=== PATIENT | male | born 1950 | race Caucasian/White ===

== ENCOUNTER → 2016-06-13 | Outpatient (CLI) | payer OTHER, MEDICARE ==
[~2016-06-13] MED LIST: ASPI-586 PO; CETI10TA17 PO; FENO134C PO; FISH1CAP15 PO; FLUO40CA12 PO; GLUC-116 PO; HYDR-3816 PO; METF-380 PO; MULT1CAP27 PO; OLME1TAB24 PO; SIMV40TA4 PO; [UNRECOGNIZED DRUG - OTHER]
--- OUTSIDE RECORDS SUMMARY | 2016-06-13 15:56 | XMS REPORT | Continuity of Care Document ---
Author Author [facility] [address] Organization [facility] [address] Address Unknown Phone Unavailable Care Team Providers Care Tools Programmer Name Role Phone CHIDI ZENDEJAS DO PCP Insurance Providers Payer Name Policy Number Subscriber Name Relationship [facility] [id number] Patt Streeter 01 s Medicare [id number] Irladna Streeter 18 Self / Same As Patient Advance Directives Directive Response Recorded Date/Time Advance Directives Yes 05/25/16 8:42am Resuscitation Status Full Code 05/25/16 8:42am Chief Complaint and Reason for Visit Chief Complaint Cough/Cold/Flu Symptoms Reason for Visit Upper respiratory infection Problems Active Problems Medical Problem Onset Date Status Upper respiratory infection Unknown Acute Medications Current Home Medications Medication Dose Units Route Directions Days/Qty Instructions Start Date Metformin Hcl (Glucophage) 1,000 Mg 1,000 Mg Oral Twice A Day With Meals 04/21/12 Olmesartan/Hydrochlorothiazide 1 Each 1 Each Oral Daily 03/28/15 Fluoxetine Hcl 40 Mg 40 Mg Oral Daily 03/28/15 Simvastatin 40 Mg 40 Mg Oral Daily 03/28/15 Fenofibrate,Micronized 134 Mg 134 Mg Oral Daily 03/28/15 Multivitamin 1 Each 1 Each Oral Daily 03/28/15 Gluc/Tyrone-Msm#2/C/D3/Ricardo/Born 1 Each 2 Each Oral Daily 03/28/15 Cetirizine Hcl 10 Mg 10 Mg Oral Daily 03/28/15 Aspirin 81 Mg 81 Mg Oral Daily 03/28/15 Fish Oil/Dha/Epa 1 Each 2,400 Mg Oral Daily take 2 (1,200mg) tabs 08/07 Hydrocodone/Acetaminophen 1 Each 1 Each Oral Every 4HRS for Pain 20 Past Home Medications Medication Directions Ordered Status [Bencare] , 04/21/12 Discontinued Social History Social History Problem Response Recorded Date/Time Alcohol Use Denies Use 03/29/2015 11:30am Recreational Drug Use No 03/29/2015 11:30am Recent Foreign Travel No 05/25/2016 8:42am Recent Infectious Disease Exposure No 05/25/2016 8:42am Hospitalization with Isolation Denies 05/25/2016 8:42am Smoking Status Former Smoker 05/25/2016 8:42am Type Used Cigarettes 05/25/2016 8:42am Recent Hopitalizations No 05/25/2016 8:42am Hospitalization with Isolation Denies 05/25/2016 8:42am Query Response Start Date Stop Date Smoking Status Former Smoker 05/26/1999 Hospital Discharge Instructions No hospital discharge instructions. Plan of Care Discharge Date 05/25/16 10:55am Disposition 01 HOME, SELF-CARE Condition at Discharge Stable/Unchanged Instructions/Education Provided Viral Upper Respiratory Infection, Adult (DC) Prescriptions See Medication Section Referrals CHIDI ZENDEJAS DO - Primary Care Physician Additional Instructions/Education All discharge instructions reviewed with patient and/or family. Voiced understanding. Plenty of liquids. Tylenol 650 or ibuprofen 600 every 6 hours for fever or aches and pains Acquire Claritin which is available [id number] and take for nasal congestion. Take [place] or other throat lozenges for sore throat and/or coughing Functional Status No functional status results. Allergies, Adverse Reactions, Alerts Allergen Type Severity Reaction Status Last Updated Codeine Allergy Mild RASH, PATIENT HAS HYDROCODONE AND OXYCODONE W/O ISSUE Active 03/29/15 Immunizations No immunization records. Vital Signs Acute Vital Signs Vital Response Date/Time Temperature (Fahrenheit) 99 degrees F (97.6 - 99.5) 05/25/2016 8:42am Temperature (Calculated Celsius) 37.2252 degrees C (36.4 - 37.5) 05/25/2016 8 :42am Temperature Source Temporal 05/25/2016 8:42am Pulse Rate (adult) 68 bpm (60 - 90) 05/25/2016 8:42am Respiratory Rate 25 bpm (12 - 24) 05/25/2016 8:42am O2 Sat by Pulse Oximetry 96 % (88 - 100) 05/25/2016 8:42am Blood Pressure 173/113 mm Hg 05/25/2016 8:42am Blood Pressure Mean 133 mm Hg 05/25/2016 8:42am Height (Feet) 6 feet 05/25/2016 8:42am Height (Inches) 2.00 inches 05/25/2016 8:42am Height (Calculated Centimeters) 187.264247 cm 05/25/2016 8:42am Weight (Pounds) 315 pounds 05/25/2016 8:42am Weight (Calculated Grams) 494202.598 gm 05/25/2016 8:42am Weight (Calculated Kilograms) 142.473692 kilograms 05/25/2016 8:42am Calculated BMI 36.40 05/25/2016 8:42am Capillary Refill Capillary Refill Less Than 3 Seconds 05/25/2016 8:42am Results Laboratory Results Test Name Result Units Flags Reference Collection Date/Time Result Date/ Time Comments White Blood Count 7.9 10^3/uL 4.3-11.0 05/25/2016 9:13am 05/25/2016 9: 24am Red Blood Count 4.60 10^6/uL 4.35-5.85 05/25/2016 9:13am 05/25/2016 9: 24am Hemoglobin 13.2 G/DL L 13.3-17.7 05/25/2016 9:13am 05/25/2016 9:24am Hematocrit 39 % L 40-54 05/25/2016 9:13am 05/25/2016 9:24am Mean Corpuscular Volume 85 FL 80-99 05/25/2016 9:13am 05/25/2016 9: 24am Mean Corpuscular Hemoglobin 29 PG 25-34 05/25/2016 9:13am 05/25/2016 9: 24am Mean Corpuscular Hemoglobin Concent 34 G/DL 32-36 05/25/2016 9:13am 9:24am Red Cell Distribution Width 15.6 % H 10.0-14.5 05/25/2016 9:13am 2015 9:24am Platelet Count 306 10^3/uL 130-400 05/25/2016 9:1305/25/2016 9:24am Mean Platelet Volume 9.8 FL 7.4-10.4 05/25/2016 9:1305/25/2016 9: 24am Neutrophils (%) (Auto) 67 % 42-75 05/25/2016 9:1305/25/2016 9:24am Lymphocytes (%) (Auto) 19 % 12-44 05/25/2016 9:1305/25/2016 9:24am Monocytes (%) (Auto) 10 % 0-12 05/25/2016 9:1305/25/2016 9:24am Eosinophils (%) (Auto) 2 % 0-10 05/25/2016 9:1305/25/2016 9:24am Basophils (%) (Auto) 1 % 0-10 05/25/2016 9:1305/25/2016 9:24am Neutrophils # (Auto) 5.4 X 10^3 1.8-7.8 05/25/2016 9:13am 05/25/2016 9: 24am Lymphocytes # (Auto) 1.5 X 10^3 1.0-4.0 05/25/2016 9:1305/25/2016 9: 24am Monocytes # (Auto) 0.8 X 10^3 0.0-1.0 05/25/2016 9:1305/25/2016 9: 24am Eosinophils # (Auto) 0.2 10^3/uL 0.0-0.3 05/25/2016 9:13am 05/25/2016 9 :24am Basophils # (Auto) 0.1 10^3/uL 0.0-0.1 05/25/2016 9:13am 05/25/2016 9: 24am Group A Streptococcus Screen NEGATIVE NEGATIVE 05/25/2016 9:04am 9:19am Procedures No known history of procedures. Encounters Encounter Location Arrival/Admit Date Discharge/Depart Date Attending Provider Departed Emergency Room [facility] [address] 05/25/16 8:26am 05/25 10:55am MICHELLE FONTENOT MD Recent Diagnosis
--- NOTE | 2016-06-13 16:17 | Diagnostic Imaging Report ---
CLINICAL INDICATION: Patient with difficulty breathing. Patient has cough, wheezing, and congestion. EXAM: Chest x-ray, PA and lateral views. COMPARISONS: Chest x-ray dated 05/25/2016. FINDINGS: Lungs/pleura: There is slight improved aeration of both lungs with no interval lung infiltrate seen. Suspected minimal bibasilar atelectasis. There is no pneumothorax. There is no pleural effusion. Mediastinum: Unremarkable. Pulmonary vasculature: Unremarkable. Heart: Stable cardiomegaly. Bones/extrathoracic soft tissue: There are degenerative osteophytes scattered throughout the thoracic spine. Degenerative disease of the right glenohumeral joint is seen. IMPRESSION: 1: There is slight improved aeration of both lungs with suspected minimal bibasilar atelectasis. There is no interval lung infiltrate seen. 2: Stable cardiomegaly with no significant pulmonary vascular congestion. Dictated by: Dictated on workstation # [id number]
== END ==
LOC: RAD 15:52
PROVIDERS: ATTEND Nurse Practitioner
DX: R05 Cough (principal); R06.2 Wheezing
CPT/HCPCS: 71020

== ENCOUNTER → 2016-09-11 | Outpatient (CLI) | payer OTHER, MEDICARE ==
[~2016-09-11] MED LIST changes: +RT-ALBUTEROL SULF 2.5 MG/3 ML PRE-MIX VIAL IH ONE
== END ==
LOC: RT 12:54
PROVIDERS: ATTEND Internal Medicine Critical Care Medicine
DX: R06.00 Dyspnea, unspecified (principal); I10 Essential (primary) hypertension; E11.9 Type 2 diabetes mellitus without complications
CPT/HCPCS: 94060; 94640; 94726; 94729

== ENCOUNTER 2016-10-10 14:00 | Outpatient (CLI) | payer OTHER, MEDICARE ==
[~2016-10-10 14:00] MED LIST changes: -RT-ALBUTEROL SULF 2.5 MG/3 ML PRE-MIX VIAL IH ONE
== END 2016-10-10 14:39 | disposition home or self-care (01) ==
LOC: SLEEP 14:00
PROVIDERS: ATTEND Internal Medicine Critical Care Medicine
DX: R06.02 Shortness of breath (principal); I10 Essential (primary) hypertension; E11.9 Type 2 diabetes mellitus without complications

== ENCOUNTER 2017-01-09 09:00 | Outpatient (RCR) | payer OTHER, MEDICARE | END 2017-01-12 | disposition home or self-care (01) | LOC: PULM 09:00 | PROVIDERS: ATTEND Internal Medicine Critical Care Medicine | DX: R06.00 Dyspnea, unspecified (principal); I10 Essential (primary) hypertension; E11.9 Type 2 diabetes mellitus without complications | CPT/HCPCS: 99211 ==

== ENCOUNTER 2017-02-20 09:00 | Outpatient (RCR) | payer OTHER, MEDICARE | END 2017-02-22 | disposition home or self-care (01) | LOC: PULM 09:00 | PROVIDERS: ATTEND Internal Medicine Critical Care Medicine | DX: R06.00 Dyspnea, unspecified (principal); I10 Essential (primary) hypertension; E11.9 Type 2 diabetes mellitus without complications ==

== ENCOUNTER 2017-05-13 09:00 | Outpatient (RCR) | payer OTHER, MEDICARE | END 2017-05-26 | disposition home or self-care (01) | LOC: PULM 09:00 | PROVIDERS: ATTEND Internal Medicine Critical Care Medicine | DX: I10 Essential (primary) hypertension (principal); R06.00 Dyspnea, unspecified; E11.9 Type 2 diabetes mellitus without complications ==

== ENCOUNTER → 2017-06-12 | Outpatient (CLI) | payer OTHER, MEDICARE ==
[2017-06-12 11:06] LABS: BUN/CREATININE RATIO 22; CREATININE SERUM 0.94 MG/DL (0.60-1.30); GFR ESTIMATED > 60
--- NOTE | 2017-06-12 12:24 | Diagnostic Imaging Report ---
PROCEDURE: CT neck soft tissue with contrast. TECHNIQUE: Multiple contiguous axial images were obtained through the neck after the administration of contrast. INDICATION: Right ear swelling. COMPARISON: There are no previous studies available for comparison. FINDINGS: The right ear was not included in its entirety on this exam. Where visualized, the right ear seems similar to the left ear. There is no obvious mass or soft tissue edema identified. There is no mass or adenopathy noted. The parotid and submandibular glands are within normal limits. The thyroid gland is not enlarged, and the gland appears fairly homogeneous. There is atherosclerotic disease involving both carotid bifurcations, and there may be a hemodynamically significant stenosis of the proximal internal carotid artery on the right. I would recommend that a carotid Doppler exam be performed for further study. The lung apices are clear. The intracranial contents, where visualized, are unremarkable. There is some type of metallic device within the left globe. Correlation with the patient's ophthalmologic surgery would be recommended. The bone windows show no sign of a fracture or of a destructive lesion. There is fairly severe degenerative disc and bony disease at C5-6 and C6-7. The axial images do suggest that there is spinal stenosis and neural foraminal narrowing bilaterally at both of these levels. If further study is desired, then MRI would be recommended. IMPRESSION: 1. There is no abnormality of the visualized right ear. Clinical followup is recommended. 2. There is no acute abnormality of the neck identified otherwise. 3. Ultrasound would be recommended for further evaluation of the carotid bifurcation on the right. 4. There is degenerative disc and bony disease at C5-6 and C6-7. If further study is desired, then MRI would be recommended. Dictated by: Dictated on workstation # [id number]
== END ==
LOC: RAD 10:33
PROVIDERS: ATTEND Nurse Practitioner Family
DX: M50.322 Other cervical disc degeneration at C5-C6 level (principal); H93.8X1 Other specified disorders of right ear; R22.1 Localized swelling, mass and lump, neck
CPT/HCPCS: 36415; 70491; 82565; 84520

== ENCOUNTER → 2017-06-23 | Outpatient (CLI) | payer OTHER, MEDICARE ==
--- NOTE | 2017-06-23 15:46 | Diagnostic Imaging Report ---
PROCEDURE: US carotid duplex, bilateral TECHNIQUE: Multiple real-time grayscale images were obtained over the carotid arteries in various projections, bilaterally. Additional duplex Doppler and color Doppler images were also obtained. INDICATION: Diabetes. FINDINGS: There are no focally elevated velocities in either internal carotid artery. The ICA/CCA ratios are within normal limits, bilaterally. There is antegrade flow in the vertebral arteries, bilaterally. Grayscale images demonstrate minimal carotid plaque, bilaterally. IMPRESSION: Minimal bilateral carotid plaque however spectral analysis shows no evidence of a hemodynamically significant stenosis in either internal carotid artery. Dictated by: Dictated on workstation # [id number]
== END ==
LOC: RAD 11:31
PROVIDERS: ATTEND Family Medicine
DX: I65.21 Occlusion and stenosis of right carotid artery (principal); E11.9 Type 2 diabetes mellitus without complications
CPT/HCPCS: 93880

== ENCOUNTER 2017-08-04 21:12 | Emergency (ER) | payer OTHER, MEDICARE ==
[~2017-08-04] VITALS: Ht 188 cm; Wt 133.8 kg
[~2017-08-04 21:12] MED LIST changes: +HYDR-34 PO; -HYDR-3816 PO
[2017-08-04] MEDS ORDERED: MONT10TA24 (21:30)
[2017-08-04] MEDS ORDERED: DILT360C36 (21:30)
[2017-08-04] MEDS ORDERED: METO-395 (21:30)
--- NOTE | 2017-08-04 21:56 | ED Abdominal Pain ---
General Chief Complaint: Back Problems Stated Complaint: L SIDE PAIN/SOB Nursing Triage Note: left upper flank pain Sepsis Screen: No Definite Risk Source of Information: Patient Exam Limitations: No Limitations History of Present Illness Date Seen by Provider: Aug 04, 2017 Time Seen by Provider: 21:42 Initial Comments Here with complaint of left flank pain that radiates around the abdomen to the front. States it is quite significant. Denies dysuria. Denies vomiting. Unsure what causes this. Also has back pain. States he's never had anything like this before. States he was able to have bowel movement today. Timing/Duration: 24 Hours Severity/Quality: Moderate, Aching Location: Flank Radiation: LUQ, Back, Epigastric Activities at Onset: None Modifying Factors: Worsens With Movement, Improves With Resting Associated Symptoms: Back Pain, No Chest Pain, No Fever/Chills, No Nausea/ Vomiting, No Shortness of Air, No Weakness Allergies and Home Medications Allergies Coded Allergies: codeine (Verified Allergy, Mild, RASH, PATIENT HAS HYDROCODONE AND OXYCODONE W/O ISSUE, 03/29/15) Home Medications Aspirin 81 Mg Tablet.dr, 81 MG PO DAILY, (Reported) Cetirizine HCl 10 Mg Tablet, 10 MG PO DAILY, (Reported) Fenofibrate,Micronized 134 Mg Capsule, 134 MG PO DAILY, (Reported) Fish Oil/Dha/Epa 1 Each Capsule, 2,400 MG PO DAILY, (Reported) take 2 (1,200mg) tabs Fluoxetine HCl 40 Mg Capsule, 40 MG PO DAILY, (Reported) Gluc/Tyrone-MSM#2/C/D3/Ricardo/Born 1 Each Tablet, 2 EACH PO DAILY, (Reported) Metformin Hcl 1,000 Mg Tablet, 1,000 MG PO BID WITH MEALS, (Reported) Multivitamin 1 Each Capsule, 1 EACH PO DAILY, (Reported) Olmesartan/Hydrochlorothiazide 1 Each Tablet, 1 EACH PO DAILY, (Reported) Simvastatin 40 Mg Tablet, 40 MG PO DAILY, (Reported) Patient Home Medication List Home Medication List Reviewed: Yes Review of Systems Constitutional: see HPI, No chills, No fever EENTM: No Symptoms Reported Respiratory: No Symptoms Reported Cardiovascular: Denies Chest Pain, Denies Palpitations Gastrointestinal: Abdominal Pain, Denies Constipated, Denies Diarrhea, Denies Vomiting Genitourinary: No Symptoms Reported Musculoskeletal: see HPI, back pain, muscle pain Skin: no symptoms reported All Other Systems Reviewed Negative Unless Noted: Yes Past Pzfuzwv-Bhblam-Ficjiv Hx Patient Social History Alcohol Use: Denies Use Recreational Drug Use: No Smoking Status: Former Smoker Type Used: Cigarettes Recent Foreign Travel: No Contact w/Someone Who Travel: No Recent Infectious Disease Expo: No Recent Hopitalizations: No Immunizations Up To Date Tetanus Booster (TDap): Less than 5yrs Seasonal Allergies Seasonal Allergies: Yes Surgeries History of Surgeries: Yes (LEFT ELBOW FX, CATARACTS AND TORN RETINA, RIGHT SHOULDER) Respiratory History of Respiratory Disorde: No Cardiovascular History of Cardiac Disorders: Yes Cardiac Disorders: High Cholesterol, Hypertension Neurological History of Neurological Disord: Yes (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) Neurological Disorders: Traumatic Brain Injury Genitourinary History of Genitourinary Disor: No Gastrointestinal History of Gastrointestinal Di: Yes Gastrointestinal Disorders: Gastroesophageal Reflux, Chronic Constipation Musculoskeletal History of Musculoskeletal Dis: Yes Musculoskeletal Disorders: Arthritis Endocrine History of Endocrine Disorders: Yes Endocrine Disorders: Diabetes, Non-Insulin dep HEENT HEENT Disorders: Cataract Hearing Impairment: Bilateral Hearing Aide Cancer History of Cancer: No Psychosocial History of Psychiatric Problem: Yes Behavioral Health Disorders: Anxiety Integumentary History of Skin or Integumenta: No Blood Transfusions History of Blood Disorders: No Reviewed Nursing Assessment Reviewed/Agree w Nursing PMH: Yes Family Medical History Significant Family History: No Pertinent Family Hx Physical Exam Vital Signs VS - Last 72 Hours, by Label 08/04/17 21:30 Temp 96.5 Pulse 75 Resp 16 B/P (MAP) 188/107 (134) Pulse Ox 93 O2 Delivery Room Air Capillary Refill : Less Than 3 Seconds General Appearance: WD/WN, mild distress (pain related), obese HEENT: PERRL/EOMI, pharynx normal Neck: full range of motion, supple Respiratory: lungs clear, normal breath sounds Cardiovascular: regular rate, rhythm, no murmur Gastrointestinal: soft, abnormal bowel sounds (hypoactive), No guarding, No rebound, tenderness (upper abdomen and left side), hernia (periumbilical) Extremities: non-tender, normal inspection Back: normal inspection, other (tenderness to the left lateral aspect of the lumbar spine. Tenderness extends in the SI joint around the back to the upper abdomen.) Neurologic/Psychiatric: alert, oriented x 3 Skin: normal color, warm/dry Progress/Results/Core Measures Results/Orders Lab Results Laboratory Tests Test 08/04/17 21:50 Range/Units White Blood Count 14.2 H 4.3-11.0 10^3/uL Red Blood Count 4.84 4.35-5.85 10^6/uL Hemoglobin 14.1 13.3-17.7 G/DL Hematocrit 41 40-54 % Mean Corpuscular Volume 85 80-99 FL Mean Corpuscular Hemoglobin 29 25-34 PG Mean Corpuscular Hemoglobin Concent 34 32-36 G/DL Red Cell Distribution Width 15.8 H 10.0-14.5 % Platelet Count 296 130-400 10^3/uL Mean Platelet Volume 9.5 7.4-10.4 FL Neutrophils (%) (Auto) 84 H 42-75 % Lymphocytes (%) (Auto) 10 L 12-44 % Monocytes (%) (Auto) 5 0-12 % Eosinophils (%) (Auto) 1 0-10 % Basophils (%) (Auto) 0 0-10 % Neutrophils # (Auto) 11.9 H 1.8-7.8 X 10^3 Lymphocytes # (Auto) 1.4 1.0-4.0 X 10^3 Monocytes # (Auto) 0.7 0.0-1.0 X 10^3 Eosinophils # (Auto) 0.1 0.0-0.3 10^3/uL Basophils # (Auto) 0.0 0.0-0.1 10^3/uL Neutrophils % (Manual) 85 % Lymphocytes % (Manual) 13 % Monocytes % (Manual) 2 % Eosinophils % (Manual) 0 % Basophils % (Manual) 0 % Band Neutrophils 0 % Blood Morphology Comment NORMAL Urine Color YELLOW Urine Clarity CLEAR Urine pH 7 5-9 Urine Specific Adams 1.010 L 1.016-1.022 Urine Protein NEGATIVE NEGATIVE Urine Glucose (UA) NEGATIVE NEGATIVE Urine Ketones NEGATIVE NEGATIVE Urine Nitrite NEGATIVE NEGATIVE Urine Bilirubin NEGATIVE NEGATIVE Urine Urobilinogen NORMAL NORMAL MG/DL Urine Leukocyte Esterase NEGATIVE NEGATIVE Urine RBC (Auto) NEGATIVE NEGATIVE Urine RBC NONE /HPF Urine WBC 0-2 /HPF Urine Crystals NONE /LPF Urine Bacteria NEGATIVE /HPF Urine Casts NONE /LPF Urine Mucus SMALL H /LPF Urine Culture Indicated NO Sodium Level 142 135-145 MMOL/L Potassium Level 3.3 L 3.6-5.0 MMOL/L Chloride Level 102 98-107 MMOL/L Carbon Dioxide Level 26 21-32 MMOL/L Anion Gap 14 5-14 MMOL/L Blood Urea Nitrogen 23 H 7-18 MG/DL Creatinine 0.92 0.60-1.30 MG/DL Estimat Glomerular Filtration Rate > 60 BUN/Creatinine Ratio 25 Glucose Level 143 H 70-105 MG/DL Calcium Level 8.9 8.5-10.1 MG/DL Total Bilirubin 0.6 0.1-1.0 MG/DL Aspartate Amino Transf (AST/SGOT) 27 5-34 U/L Alanine Aminotransferase (ALT/SGPT) 42 0-55 U/L Alkaline Phosphatase 35 L 40-136 U/L Total Protein 7.0 6.4-8.2 GM/DL Albumin 4.4 3.2-4.5 GM/DL Amylase Level 27 25-125 U/L Lipase 17 8-78 U/L My Orders Orders - IVY NUNN MD Amylase (08/04/17 21:46) Cbc With Automated Diff (08/04/17 21:46) Comprehensive Metabolic Panel (08/04/17 21:46) Lipase (08/04/17 21:46) Ua Culture If Indicated (08/04/17 21:46) Saline Lock/Iv-Start (08/04/17 21:46) Monitor-Rhythm Ecg Trace Only (08/04/17 21:46) Manual Differential (08/04/17 21:50) Ct Abdomen/Pelvis W (08/04/17 22:28) Iohexol Injection (Omnipaque 350 Mg/Ml 1 (08/04/17 22:30) Ns (Ivpb) (Sodium Chloride 0.9%) (08/04/17 22:30) Saline Lock/Iv-Start (08/04/17 22:41) Ns Iv 1000 Ml (Sodium Chloride 0.9%) (08/04/17 22:41) Medications Given in ED Current Medications Medications Dose Ordered Sig/Evgeny Route Start Time Stop Time Status Last Admin Dose Admin Iohexol 100 ml ONCE ONCE IV 08/04/17 22:30 08/04/17 22:55 DC 08/04/17 22:40 100 ML Sodium Chloride 250 ml ONCE ONCE IV 08/04/17 22:30 08/04/17 22:55 DC 08/04/17 22:40 80 ML Sodium Chloride 1,000 ml @ 0 mls/hr Q0M ONCE IV 08/04/17 22:41 08/04/17 22:42 DC 08/04/17 23:05 0 MLS/HR Vital Signs/I&O Vital Sign - Last 12Hours 08/04/17 21:30 Temp 96.5 Pulse 75 Resp 16 B/P (MAP) 188/107 (134) Pulse Ox 93 O2 Delivery Room Air Intake and Output 08/05/17 00:00 Intake Total 1000 ml Balance 1000 ml Blood Pressure Mean: 134 Progress Note : Progress Note Seen and evaluated. IV, labs and UA ordered. Labs evaluated. CT abdomen and pelvis with IV contrast ordered to evaluate the abdomen and further given his pain and presentation symptoms. Monitor patient. Normal saline [address] scan. Diagnostic Imaging Diagonstic Imaging: CT Plain Films/CT/US/NM/MRI: abdomen, pelvis Comments Increased bulky lymphadenopathy, most pronounced in the pelvis. Question whether there is known history of lymphoma or other malignancy. Fluid distended stomach. No clear outlet mass. No small bowel obstruction. Chronic diverticula without diverticulitis. Hepatic steatosis and other incidental findings. Lymph nodes: There is bulky pelvic lymphadenopathy, most pronounced along the external iliac chains. This has increased in the interval. Largest right iliac note is not 3.6 cm in the short axis compared to 2.8 cm previously. On the left, the largest lymph node is increased from 2.7 cm to 3.8 cm and short axis. [place]. There is less pronounced retroperitoneal/para-aortic adenopathy. Several mildly enlarged mesenteric lymph nodes as well. Reviewed: Reviewed [place] Study, Reviewed by Me Departure Impression Impression: Primary Impression: Intra-abdominal lymphadenopathy Additional Impressions: Pelvic lymphadenopathy Low back pain Qualified Codes: M54.5 - Low back pain Disposition: 01 HOME, SELF-CARE Condition: Stable Departure-Patient Inst. Decision time for Depature: 00:06 Referrals: CHIDI ZENDEJAS DO (PCP/Family) Primary Care Physician Patient Instructions: LYMPH NODE SWELLING, Low Back Pain (DC) Add. Discharge Instructions: All discharge instructions reviewed with patient and/or family. Voiced understanding. It is very important that he follow-up with Dr. Zendejas in the next one to 2 days for recheck and further evaluation regarding the enlarged lymph nodes noted in the abdomen and pelvis area. This needs further evaluation. Return for worse pain, fever, vomiting, weakness, breathing problems or other concerns as needed. Continue home medications and eat a normal diet. Copy Copies To 1: CHIDI ZENDEJAS TIMOTHY D MD Aug 04, 2017 21:56
[2017-08-04 22:04] LABS: BASOPHILS % (AUTO) 0 % (0-10); EOSINOPHILS # (AUTO) 0.1 10^3/uL (0.0-0.3); EOSINOPHILS % (AUTO) 1 % (0-10); HEMATOCRIT 41 % (40-54); HEMOGLOBIN 14.1 G/DL (13.3-17.7); LYMPHOCYTES # (AUTO) 1.4 X 10^3 (1.0-4.0); LYMPHOCYTES % (AUTO) 10 % (12-44); MEAN CORPUSCULAR HEMOGLOBIN 29 PG (25-34); MEAN CORPUSCULAR HGB CONC 34 G/DL (32-36); MEAN CORPUSCULAR VOLUME 85 FL (80-99); MEAN PLATELET VOLUME 9.5 FL (7.4-10.4); MONOCYTES # (AUTO) 0.7 X 10^3 (0.0-1.0); MONOCYTES % (AUTO) 5 % (0-12); NEUTROPHILS # (AUTO) 11.9 X 10^3 (1.8-7.8); NEUTROPHILS % (AUTO) 84 % (42-75); PLATELET COUNT 296 10^3/uL (130-400); RED BLOOD COUNT 4.84 10^6/uL (4.35-5.85); RED CELL DISTRIBUTION WIDTH 15.8 % (10.0-14.5); WHITE BLOOD COUNT 14.2 10^3/uL (4.3-11.0)
[2017-08-04 22:05] LABS: BILIRUBIN,URINE NEGATIVE (NEGATIVE); CLARITY,URINE CLEAR; COLOR,URINE YELLOW; GLUCOSE, URINE (UA) NEGATIVE (NEGATIVE); KETONES,URINE NEGATIVE (NEGATIVE); LEUKOCYTE ESTERASE ,URINE NEGATIVE (NEGATIVE); NITRITE,URINE NEGATIVE (NEGATIVE); PH,URINE 7 (5-9); PROTEIN,URINE NEGATIVE (NEGATIVE); UROBILINOGEN,URINE NORMAL (NORMAL)
[2017-08-04 22:17] LABS: BACTERIA,URINE NEGATIVE /HPF; WBC,URINE 0-2 /HPF
[2017-08-04 22:26] LABS: ALANINE AMINOTRANSFERASE 42 U/L (0-55); ALBUMIN 4.4 GM/DL (3.2-4.5); ALKALINE PHOSPHATASE 35 U/L (40-136); AMYLASE 27 U/L (25-125); BILIRUBIN,TOTAL 0.6 MG/DL (0.1-1.0); BUN/CREATININE RATIO 25; CALCIUM 8.9 MG/DL (8.5-10.1); CARBON DIOXIDE 26 MMOL/L (21-32); CHLORIDE 102 MMOL/L (98-107); CREATININE SERUM 0.92 MG/DL (0.60-1.30); GFR ESTIMATED > 60; GLUCOSE 143 MG/DL (70-105); LIPASE 17 U/L (8-78); POTASSIUM 3.3 MMOL/L (3.6-5.0); SODIUM 142 MMOL/L (135-145)
[2017-08-04 22:27] LABS: BAND NEUTROPHILS 0 %; BASOPHILS % (MANUAL) 0 %; EOSINOPHILS % (MANUAL) 0 %; LYMPHOCYTES % (MANUAL) 13 %; MONOCYTES % (MANUAL) 2 %; NEUTROPHILS % (MANUAL) 85 %; RBC MORPH NORMAL
[2017-08-04] MEDS ORDERED: IOHEXOL 350 MG/ML 100 ML (OMNIPAQUE 350) VIAL IV ONE (22:30)
[2017-08-04] MEDS ORDERED: NS 250 ML (IVPB) BAG IV ONE (22:30)
[2017-08-04] MEDS ORDERED: NS IV 1000 ML 1,000 ML IV ONE (22:41)
[2017-08-05 00:11] VITALS: BP 179/100
--- NOTE | 2017-08-05 07:09 | Diagnostic Imaging Report ---
PROCEDURE: CT abdomen and pelvis with contrast. TECHNIQUE: Multiple contiguous axial images were obtained through the abdomen and pelvis after administration of intravenous contrast. INDICATION: Left flank pain. COMPARISON: 04/22/2016 FINDINGS: Lower chest: The lung bases are clear. No pericardial or pleural effusion. Peritoneum: No free intraperitoneal air or fluid. Liver and biliary system: Marked diffuse hypoattenuation liver is indicative of hepatic steatosis. No focal hepatic lesion. The gallbladder is normal. No biliary duct dilation. Spleen and Pancreas: Spleen is normal. The pancreas enhances normally without mass lesion or peripancreatic inflammatory changes. Adrenals: Normal. tract: The kidneys enhance normally without obstruction. Cystic lesion with a few internal septations in the mid left kidney is stable in size measuring 2.9 x 2.8 cm. No additional renal lesions. Urinary bladder is distended without wall thickening. Prostate is not enlarged. GI tract: Stomach is distended with fluid and there is no wall thickening. Small bowel loops are fluid filled but nondilated. No pericolonic inflammatory changes. Normal appendix. Vasculature and Lymph nodes: Normal caliber aorta. Enlarged pelvic lymph nodes are present. These include lymphadenopathy along the common and external iliac chains. Largest lymph nodes along the pelvic sidewall and the left measuring 4.3 x 3.2 in the right external iliac chain on the right measuring 4.6 x 3.3 cm. There are a few borderline enlarged inguinal lymph nodes but these appear to maintain fatty liset. Musculoskeletal: No concerning osseous lesion. IMPRESSION: 1. Increase in lymphadenopathy within the pelvis is concerning for lymphoproliferative disorder. Consider image guided biopsy for further characterization if patient does not already have a diagnosis. 2. No bowel destruction. Fluid-filled stomach and small bowel loops can be seen with gastroenteritis. 3. Marked hepatic steatosis. 4. Findings are in agreement with the preliminary report. Dictated by: Dictated on workstation # [id number]
== END 2017-08-05 00:10 | disposition home or self-care (01) ==
LOC: EDUNIT# 21:12 → ER 21:13
DX: R59.0 Localized enlarged lymph nodes (principal); M54.5 Low back pain; E78.00 Pure hypercholesterolemia, unspecified; I10 Essential (primary) hypertension; K21.9 Gastro-esophageal reflux disease without esophagitis; E11.9 Type 2 diabetes mellitus without complications; F41.9 Anxiety disorder, unspecified; Z87.820 Personal history of traumatic brain injury; Z87.19 Personal history of other diseases of the digestive system; Z88.5 Allergy status to narcotic agent; Z79.84 Long term (current) use of oral hypoglycemic drugs; Z79.82 Long term (current) use of aspirin; Z87.891 Personal history of nicotine dependence
CPT/HCPCS: 36415; 74177; 80053; 81000; 82150; 83690; 85007; 85025; 85027; 93041; 96360

== ENCOUNTER → 2017-08-11 | Outpatient (CLI) | payer OTHER, MEDICARE ==
[~2017-08-11] MED LIST changes: +ACET-2650 PO; +CART1TAB4 PO; +CATHETER FLUSH 10 ML SYR IV PRN; +CINN500C2 PO; +DILT360C36 PO; +DULO60CA58 PO; +FLUT1BLS IH; +GARL10002 PO; +IBUP-2055 PO; +IOHEXOL 350 MG/ML 100 ML (OMNIPAQUE 350) VIAL IV ONE; +METF1000 PO; +METO-395 PO; +MONT10TA24; +NS 100 ML (IVPB) BAG IV ONE; +OMG1KC PO
--- NOTE | 2017-08-11 13:16 | Diagnostic Imaging Report ---
PROCEDURE: CT chest with contrast only. TECHNIQUE: Multiple contiguous axial images were obtained through the chest after administration of intravenous contrast. INDICATION: Lymphadenopathy. COMPARISON: No prior CT chest study is available for comparison. FINDINGS: Mildly prominent axillary lymph nodes are noted. Left axillary node short axis measurement measures 11 mm. No hilar lymphadenopathy is seen. There is a mildly prominent right paratracheal node with a short axis measurement of 12 mm. No other mediastinal lymphadenopathy is seen. There are coronary arterial calcifications present. The heart is enlarged. No pericardial or pleural fluid is detected. The lungs appear to be clear. No infiltrate, nodule, or mass is seen. There is minimal atelectasis in the right middle lobe. Upper abdomen demonstrates diffuse low density throughout the liver compatible with hepatic steatosis. IMPRESSION: 1. Cardiomegaly. 2. Mildly prominent axillary and right paratracheal lymph nodes, as described and indeterminate. 3. Hepatic steatosis. Dictated by: Dictated on workstation # [id number]
== END ==
LOC: RAD 11:31
PROVIDERS: ATTEND Internal Medicine Hematology & Oncology
DX: R59.1 Generalized enlarged lymph nodes (principal); I51.7 Cardiomegaly; K76.0 Fatty (change of) liver, not elsewhere classified
CPT/HCPCS: 71260

== ENCOUNTER 2017-08-13 11:36 | Outpatient (CLI) | payer OTHER, MEDICARE ==
[~2017-08-13] VITALS: Ht 188 cm; Wt 133.8 kg
[~2017-08-13 11:36] MED LIST changes: -ACET-2650 PO; -CART1TAB4 PO; -CATHETER FLUSH 10 ML SYR IV PRN; -CINN500C2 PO; -DULO60CA58 PO; -FLUT1BLS IH; -GARL10002 PO; -IBUP-2055 PO; -IOHEXOL 350 MG/ML 100 ML (OMNIPAQUE 350) VIAL IV ONE; -METF1000 PO; -NS 100 ML (IVPB) BAG IV ONE; -OMG1KC PO
[2017-08-13] MEDS ORDERED: FLUT1BLS IH (12:47)
[2017-08-13] MEDS ORDERED: OMG1KC PO (12:47)
[2017-08-13] MEDS ORDERED: GARL10002 PO (12:47)
[2017-08-13] MEDS ORDERED: CINN500C2 PO (12:47)
[2017-08-13] MEDS ORDERED: IBUP-2055 PO (12:47)
[2017-08-13] MEDS ORDERED: CART1TAB4 PO (12:47)
[2017-08-13] MEDS ORDERED: DULO60CA58 PO (12:47)
[2017-08-13] MEDS ORDERED: ACET-2650 PO (12:47)
[2017-08-13] MEDS ORDERED: METF1000 PO (12:47)
[2017-08-14] MEDS ORDERED: HYDR-34 PO (12:23)
== END 2017-08-13 13:12 ==
LOC: PREOP 11:36
PROVIDERS: ATTEND Surgery
DX: Z01.818 Encounter for other preprocedural examination (principal); R59.1 Generalized enlarged lymph nodes; D17.1 Benign lipomatous neoplasm of skin and subcutaneous tissue of trunk

== ENCOUNTER 2017-09-18 14:44 | Outpatient (RCR) | payer OTHER, MEDICARE ==
[2017-08-08 16:19] LABS: BASOPHILS % (AUTO) 0 % (0-10); EOSINOPHILS # (AUTO) 0.2 10^3/uL (0.0-0.3); EOSINOPHILS % (AUTO) 2 % (0-10); HEMATOCRIT 39 % (40-54); HEMOGLOBIN 13.3 G/DL (13.3-17.7); LYMPHOCYTES # (AUTO) 1.8 X 10^3 (1.0-4.0); LYMPHOCYTES % (AUTO) 24 % (12-44); MEAN CORPUSCULAR HEMOGLOBIN 29 PG (25-34); MEAN CORPUSCULAR HGB CONC 34 G/DL (32-36); MEAN CORPUSCULAR VOLUME 85 FL (80-99); MEAN PLATELET VOLUME 9.9 FL (7.4-10.4); MONOCYTES % (AUTO) 13 % (0-12); NEUTROPHILS # (AUTO) 4.6 X 10^3 (1.8-7.8); NEUTROPHILS % (AUTO) 61 % (42-75); PLATELET COUNT 324 10^3/uL (130-400); RED BLOOD COUNT 4.57 10^6/uL (4.35-5.85); RED CELL DISTRIBUTION WIDTH 15.5 % (10.0-14.5); WHITE BLOOD COUNT 7.6 10^3/uL (4.3-11.0)
[2017-08-08 16:42] LABS: ALANINE AMINOTRANSFERASE 43 U/L (0-55); ALBUMIN 4.2 GM/DL (3.2-4.5); ALKALINE PHOSPHATASE 33 U/L (40-136); BILIRUBIN,TOTAL 0.5 MG/DL (0.1-1.0); BUN/CREATININE RATIO 15; CALCIUM 8.8 MG/DL (8.5-10.1); CARBON DIOXIDE 25 MMOL/L (21-32); CHLORIDE 103 MMOL/L (98-107); CREATININE SERUM 0.86 MG/DL (0.60-1.30); GFR ESTIMATED > 60; GLUCOSE 127 MG/DL (70-105); POTASSIUM 2.9 MMOL/L (3.6-5.0); SODIUM 142 MMOL/L (135-145); TOTAL PROTEIN 6.9 GM/DL (6.4-8.2)
[2017-08-12 07:47] LABS: HEPATITIS C ANTIBODY C Non-Reactive (Non-Reactive)
[~2017-09-18 14:44] MED LIST changes: +ACET-2650 PO; +CART1TAB4 PO; +CINN500C2 PO; +DULO60CA58 PO; +FLUT1BLS IH; +GARL10002 PO; +IBUP-2055 PO; +METF10002 PO; +OMG1KC PO
== END 2017-11-06 | disposition home or self-care (01) ==
LOC: ONC 14:44
PROVIDERS: ATTEND Internal Medicine Hematology & Oncology
DX: C83.08 Small cell B-cell lymphoma, lymph nodes of multiple sites (principal); J44.9 Chronic obstructive pulmonary disease, unspecified; I10 Essential (primary) hypertension; E11.9 Type 2 diabetes mellitus without complications; E78.5 Hyperlipidemia, unspecified; G47.33 Obstructive sleep apnea (adult) (pediatric); E66.01 Morbid (severe) obesity due to excess calories; Z68.41 Body mass index [BMI] 40.0-44.9, adult; Z79.84 Long term (current) use of oral hypoglycemic drugs; Z79.82 Long term (current) use of aspirin; Z79.899 Other long term (current) drug therapy; Z87.891 Personal history of nicotine dependence
CPT/HCPCS: 36415; 80053; 80074; 83615; 85025; 86703; 88184; 88185; 99213; 99214

== ENCOUNTER 2017-12-10 12:00 | Outpatient (CLI) | payer OTHER, MEDICARE ==
[~2017-12-10] VITALS: Ht 188 cm; Wt 133.8 kg
[2017-12-10] MEDS ORDERED: TAMS0.4C2 PO (12:14)
[2017-12-11] MEDS ORDERED: HYDR-34 PO (13:27)
== END 2017-12-10 12:22 ==
LOC: PREOP 12:00
PROVIDERS: ATTEND Surgery
DX: Z01.818 Encounter for other preprocedural examination (principal)

== ENCOUNTER 2017-12-11 08:50 | Day surgery (SDC) | payer OTHER, MEDICARE ==
[~2017-12-11] VITALS: Ht 188 cm; Wt 133.8 kg
[~2017-12-11 08:50] MED LIST changes: +TAMS0.4C2 PO
--- OUTSIDE RECORDS SUMMARY | 2017-12-11 08:54 | XMS REPORT | Continuity of Care Document ---
Author Author [facility] Organization [facility] Address Unknown Phone Unavailable Allergies Active Description Code Type Severity Reaction Onset Reported/Identified Relationship to Patient Clinical Status Yes codeine [id number] Drug Allergy Unknown N/A 09/03/2005 Yes codeine [id number] Drug Allergy Mild RASH 03/29/2015 Yes codeine [id number] Drug Allergy Mild RASH, PATIENT H 03/29/2015 Medications There is no data. Problems Date Dx Coded Attending Type Code Diagnosis Diagnosed By 09/17/2005 Ot 786.03 09/17/2005 Ot 786.09 09/17/2005 Ot 790.91 04/21/2012 Ot 813.01 FX OLECRAN PROC ULNA-CL 04/21/2012 Ot 813.05 FX RADIUS HEAD-CLOSED 04/21/2012 Ot 813.06 FX RADIUS NECK-CLOSED 04/21/2012 Ot 959.3 ELB/FOREARM/ WRST INJ NOS 04/21/2012 Ot E000.8 OTHER EXTERNAL CAUSE STATUS 04/21/2012 Ot E849.0 ACCIDENT IN HOME 04/21/2012 Ot E885.9 FALL FROM SLIPPING, TRIPPING, OR STUMBLI 09/23/2014 VANBECELAERE, YANCI M THREAD CHECKER Ot 427.9 09/23/2014 VANBECELAERE, YANCI M THREAD CHECKER Ot 786.07 09/23/2014 VANBECELAERE, YANCI M THREAD CHECKER Ot 786.2 09/23/2014 VANBECELAERE, YANCI M THREAD CHECKER Ot 427.9 09/23/2014 VANBECELAERE, YANCI M THREAD CHECKER Ot 786.07 09/23/2014 VANBECELAERE, YANCI M THREAD CHECKER Ot 786.2 09/28/2014 VANBECELAERE, YANCI M THREAD CHECKER Ot 427.9 09/28/2014 VANBECELAERE, YANCI M THREAD CHECKER Ot 786.07 09/28/2014 VANBECELAERE, YANCI M THREAD CHECKER Ot 786.2 10/22/2014 VANBECELAERE, YANCI Nguyễn THREAD CHECKER Ot 427.9 10/22/2014 DANYELLELAEMAYUR, YANCI M THREAD CHECKER Ot 786.07 10/22/2014 SHAAN, YANCI M THREAD CHECKER Ot 786.2 03/29/2015 FABI EVERETT, ANDREI Jon Ot Z01.818 03/29/2015 FABI EVERETT, ANDREI Jon Ot Z01.818 03/29/2015 FABI EVERETT, ANDREI Jon Ot Z01.818 03/29/2015 FABI EVERETT, ANDREI Jon Ot E78.5 HYPERLIPIDEMIA, UNSPECIFIED 03/29/2015 FABI EVERETT, ANDREI Jon Ot G56.02 CARPAL TUNNEL SYNDROME, LEFT UPPER LIMB 03/29/2015 FABI EVERETT, ANDREI Jon Ot I10 ESSENTIAL (PRIMARY) HYPERTENSION 03/29/2015 FABI EVERETT, ANDREI Jon Ot Z11.2 ENCOUNTER FOR SCREENING FOR OTHER BACTER 03/29/2015 FABI EVERETT, ANDREI Jon Ot Z79.899 OTHER SENIOUR INSIGHT MANAGER (CURRENT) DRUG THERAPY 03/29/2015 FABI EVERETT, ANDREI Jon Ot Z87.891 PERSONAL HISTORY OF NICOTINE DEPENDENCE 08/09/2015 SHAAN YANCI M THREAD CHECKER Ot 427.9 08/09/2015 SHAAN, YANCI M THREAD CHECKER Ot 786.07 08/09/2015 SIMONA GARDUNOSA M THREAD CHECKER Ot 786.2 08/09/2015 FABI EVERETT, ANDREI Jon Ot Z01.818 08/14/2015 DANYELLELAEMAYUR, YANCI M THREAD CHECKER Ot 427.9 08/14/2015 DANYELLELAEMAYUR, YANCI M THREAD CHECKER Ot 786.07 08/14/2015 DANYELLELAEMAYUR, YANCI M THREAD CHECKER Ot 786.2 08/14/2015 FABI EVERETT, ANDREI Jon Ot Z01.818 10/17/2015 NEELA HYMAN DO S Ot R05 COUGH 10/17/2015 NEELA HYMAN DO S Ot R06.2 WHEEZING 04/03/2016 NEELA HYMAN DO S Ot R05 COUGH 04/03/2016 NEELA HYMAN DO S Ot R06.2 WHEEZING 04/22/2016 YANCI GARDUNO THREAD CHECKER Ot 427.9 CARDIAC DYSRHYTHMIA NOS 04/22/2016 VANBECYANCI IZQUIERDO THREAD CHECKER Ot 786.07 WHEEZING 04/22/2016 SHAANYANCI THREAD CHECKER Ot 786.2 COUGH 04/22/2016 FABI EVERETT, ANDREI Jon Ot Z01.818 ENCOUNTER FOR OTHER PREPROCEDURAL EXAMIN 04/22/2016 ORENDER DO, NEELA S Ot R05 COUGH 04/22/2016 ORENDER DO, NEELA S Ot R06.2 WHEEZING 05/25/2016 ORENDER DO, NEELA S Ot R05 COUGH 05/25/2016 ORENDER DO, NEELA S Ot R06.2 WHEEZING 05/25/2016 ORENDER DO, NEELA S Ot R10.84 GENERALIZED ABDOMINAL PAIN 05/25/2016 MICHELLE FONTENOT MD Ot E11.9 TYPE 2 DIABETES MELLITUS WITHOUT COMPLIC 05/25/2016 MICHELLE FONTENOT MD Ot I10 ESSENTIAL (PRIMARY) HYPERTENSION 05/25/2016 MICHELLE FONTENOT MD Ot J06.9 ACUTE UPPER RESPIRATORY INFECTION, UNSPE 05/25/2016 MICHELLE FONTENOT MD Ot R05 COUGH 05/25/2016 MICHELLE FONTENOT MD Ot Z79.4 GROUP HOME (CURRENT) USE OF INSULIN 05/25/2016 MICHELLE FONTENOT MD Ot Z79.82 SENIOUR INSIGHT MANAGER (CURRENT) USE OF ASPIRIN 05/25/2016 MICHELLE FONTENOT MD Ot Z79.84 GROUP HOME (CURRENT) USE OF ORAL HYPOGLYC 05/25/2016 MICHELLE FONTENOT MD Ot Z79.899 OTHER GROUP HOME (CURRENT) DRUG THERAPY 05/25/2016 MICHELLE FONTENOT MD Ot Z87.891 PERSONAL HISTORY OF NICOTINE DEPENDENCE 05/28/2016 MICHELLE FONTENOT MD Ot E11.9 TYPE 2 DIABETES MELLITUS WITHOUT COMPLIC 05/28/2016 MICHELLE FONTENOT MD Ot I10 ESSENTIAL (PRIMARY) HYPERTENSION 05/28/2016 MICHELLE FONTENOT MD Ot J06.9 ACUTE UPPER RESPIRATORY INFECTION, UNSPE 05/28/2016 MICHELLE FONTENOT MD Ot R05 COUGH 05/28/2016 MICHELLE FONTENOT MD Ot Z79.4 GROUP HOME (CURRENT) USE OF INSULIN 05/28/2016 MICHELLE FONTENOT MD Ot Z79.82 SENIOUR INSIGHT MANAGER (CURRENT) USE OF ASPIRIN 05/28/2016 MICHELLE FONTENOT MD Ot Z79.84 SENIOUR INSIGHT MANAGER (CURRENT) USE OF ORAL HYPOGLYC 05/28/2016 MICHELLE FONTENOT MD Ot Z79.899 OTHER SENIOUR INSIGHT MANAGER (CURRENT) DRUG THERAPY 05/28/2016 MICHELLE FONTENOT MD Ot Z87.891 PERSONAL HISTORY OF NICOTINE DEPENDENCE 05/28/2016 MICHELLE FONTENOT MD Ot E11.9 TYPE 2 DIABETES MELLITUS WITHOUT COMPLIC 05/28/2016 MICHELLE FONTENOT MD Ot I10 ESSENTIAL (PRIMARY) HYPERTENSION 05/28/2016 MICHELLE FONTENOT MD Ot J06.9 ACUTE UPPER RESPIRATORY INFECTION, UNSPE 05/28/2016 MICHELLE FONTENOT MD Ot R05 COUGH 05/28/2016 MICHELLE FONTENOT MD Ot Z79.4 GROUP HOME (CURRENT) USE OF INSULIN 05/28/2016 MICHELLE FONTENOT MD Ot Z79.82 SENIOUR INSIGHT MANAGER (CURRENT) USE OF ASPIRIN 05/28/2016 IMCHELLE FONTENOT MD Ot Z79.84 SENIOUR INSIGHT MANAGER (CURRENT) USE OF ORAL HYPOGLYC 05/28/2016 MICHELLE FONTENOT MD Ot Z79.899 OTHER GROUP HOME (CURRENT) DRUG THERAPY 05/28/2016 MICHELLE FONTENOT MD Ot Z87.891 PERSONAL HISTORY OF NICOTINE DEPENDENCE 06/14/2016 NEELA HYMAN DO Ot R10.84 GENERALIZED ABDOMINAL PAIN 06/14/2016 BROCK SCHMIDT INSIDE CONTRACTOR SALES Ot R05 COUGH 06/14/2016 BROCK SCHMIDT INSIDE CONTRACTOR SALES Ot R06.2 WHEEZING 06/19/2016 BROCK SCHMIDT INSIDE CONTRACTOR SALES Ot R05 COUGH 06/19/2016 BROCK SCHMIDT INSIDE CONTRACTOR SALES Ot R06.2 WHEEZING 07/23/2016 BROCK SCHMIDT INSIDE CONTRACTOR SALES Ot R05 COUGH 07/23/2016 BROCK SCHMIDT INSIDE CONTRACTOR SALES Ot R06.2 WHEEZING 08/15/2016 Ot 285.9 08/15/2016 Ot 790.29 08/15/2016 FABI EVERETT, ANDREI Jon Ot Z01.818 ENCOUNTER FOR OTHER PREPROCEDURAL EXAMIN 08/15/2016 BROCK SCHMIDT INSIDE CONTRACTOR SALES Ot R05 COUGH 08/15/2016 BROCK SCHMIDT INSIDE CONTRACTOR SALES Ot R06.2 WHEEZING 08/15/2016 DANYELLYANCI IZQUIERDO THREAD CHECKER Ot 427.9 CARDIAC DYSRHYTHMIA NOS 08/15/2016 YANCI GARDUNO THREAD CHECKER Ot 786.07 WHEEZING 08/15/2016 JOEYJEZYANCI IZQUIERDO THREAD CHECKER Ot 786.2 COUGH 08/15/2016 FABI EVERETT, ANDREI Jon Ot Z01.818 ENCOUNTER FOR OTHER PREPROCEDURAL EXAMIN 08/15/2016 ORENDER DO, NEELA S Ot R05 COUGH 08/15/2016 ORENDER DO, NEELA S Ot R06.2 WHEEZING 08/15/2016 ORENDER DO, NEELA S Ot R10.84 GENERALIZED ABDOMINAL PAIN 08/15/2016 BROCK SCHMIDT INSIDE CONTRACTOR SALES Ot R05 COUGH 08/15/2016 BROCK SCHMIDT INSIDE CONTRACTOR SALES Ot R06.2 WHEEZING 09/24/2016 ORENDER DO, NEELA S Ot R05 COUGH 09/24/2016 ORENDER DO, NEELA S Ot R06.2 WHEEZING 09/24/2016 ORENDER DO, NEELA S Ot R10.84 GENERALIZED ABDOMINAL PAIN 09/24/2016 BROCK SCHMIDT INSIDE CONTRACTOR SALES Ot R05 COUGH 09/24/2016 BROCK SCHMIDT INSIDE CONTRACTOR SALES Ot R06.2 WHEEZING 09/24/2016 FLAKITA DOHERTY DO Ot E11.9 TYPE 2 DIABETES MELLITUS WITHOUT COMPLIC 09/24/2016 FLAKITA DOHERTY DO Ot I10 ESSENTIAL (PRIMARY) HYPERTENSION 09/24/2016 FLAKITA DOHERTY DO Ot R06.00 DYSPNEA, UNSPECIFIED 10/09/2016 FLAKITA DOHERTY DO Ot E11.9 TYPE 2 DIABETES MELLITUS WITHOUT COMPLIC 10/09/2016 FLAKITA DOHERTY DO Ot I10 ESSENTIAL (PRIMARY) HYPERTENSION 10/09/2016 FLAKITA DOHERTY DO Ot R06.00 DYSPNEA, UNSPECIFIED 10/10/2016 FLAKITA DOHERTY DO Ot E11.9 TYPE 2 DIABETES MELLITUS WITHOUT COMPLIC 10/10/2016 FLAKITA DOHERTY DO Ot G47.33 OBSTRUCTIVE SLEEP APNEA (ADULT) (PEDIATR 10/10/2016 FLAKITA DOHERTY DO Ot I10 ESSENTIAL (PRIMARY) HYPERTENSION 10/10/2016 FLAKITA DOHERTY DO Ot R06.02 SHORTNESS OF BREATH 10/15/2016 FLAKITA DOHERTY DO Ot E11.9 TYPE 2 DIABETES MELLITUS WITHOUT COMPLIC 10/15/2016 FLAKITA DOHERTY DO Ot I10 ESSENTIAL (PRIMARY) HYPERTENSION 10/15/2016 FLAKITA DOHERTY DO Ot R06.00 DYSPNEA, UNSPECIFIED 11/21/2016 FLAKITA DOHERTY DO Ot E11.9 TYPE 2 DIABETES MELLITUS WITHOUT COMPLIC 11/21/2016 FLAKITA DOHERTY DO Ot G47.33 OBSTRUCTIVE SLEEP APNEA (ADULT) (PEDIATR 11/21/2016 FLAKITA DOHERTY DO Ot I10 ESSENTIAL (PRIMARY) HYPERTENSION 11/21/2016 FLAKITA DOHERTY DO Ot R06.02 SHORTNESS OF BREATH 12/12/2016 FLAKITA DOHERTY DO Ot E11.9 TYPE 2 DIABETES MELLITUS WITHOUT COMPLIC 12/12/2016 FLAKITA DOHERTY DO Ot I10 ESSENTIAL (PRIMARY) HYPERTENSION 12/12/2016 FLAKITA DOHERTY DO Ot R06.00 DYSPNEA, UNSPECIFIED 01/01/2017 FLAKITA DOHERTY DO Ot E11.9 TYPE 2 DIABETES MELLITUS WITHOUT COMPLIC 01/01/2017 FLAKITA DOHERTY DO Ot I10 ESSENTIAL (PRIMARY) HYPERTENSION 01/01/2017 FLAKITA DOHERTY DO Ot R06.00 DYSPNEA, UNSPECIFIED 01/12/2017 FLAKITA DOHERTY DO Ot E11.9 TYPE 2 DIABETES MELLITUS WITHOUT COMPLIC 01/12/2017 FLAKITA DOHERTY DO Ot I10 ESSENTIAL (PRIMARY) HYPERTENSION 01/12/2017 FLAKITA DOHERTY DO Ot R06.00 DYSPNEA, UNSPECIFIED 01/16/2017 FLAKITA DOHERTY DO Ot E11.9 TYPE 2 DIABETES MELLITUS WITHOUT COMPLIC 01/16/2017 FLAKITA DOHERTY DO Ot I10 ESSENTIAL (PRIMARY) HYPERTENSION 01/16/2017 FLAKITA DOHERTY DO Ot R06.00 DYSPNEA, UNSPECIFIED 01/17/2017 FLAKITA DOHERTY DO Ot E11.9 TYPE 2 DIABETES MELLITUS WITHOUT COMPLIC 01/17/2017 FLAKITA DOHERTY DO Ot I10 ESSENTIAL (PRIMARY) HYPERTENSION 01/17/2017 FLAKITA DOHERTY DO M Ot R06.00 DYSPNEA, UNSPECIFIED 01/17/2017 FLAKITA DOHERTY DO Ot E11.9 TYPE 2 DIABETES MELLITUS WITHOUT COMPLIC 01/17/2017 FLAKITA DOHERTY DO Ot I10 ESSENTIAL (PRIMARY) HYPERTENSION 01/17/2017 FLAKITA DOHERTY DO Ot R06.00 DYSPNEA, UNSPECIFIED 01/17/2017 BROCK SCHMIDT N INSIDE CONTRACTOR SALES Ot R05 COUGH 01/17/2017 BROCK SCHMIDT INSIDE CONTRACTOR SALES Ot R06.2 WHEEZING 01/17/2017 BROCK SCHMIDT INSIDE CONTRACTOR SALES Ot R05 COUGH 01/17/2017 BRAYANBROCK INSIDE CONTRACTOR SALES Ot R06.2 WHEEZING 02/22/2017 FLAKITA DOHERTY DO Ot E11.9 TYPE 2 DIABETES MELLITUS WITHOUT COMPLIC 02/22/2017 FLAKITA DOHERTY DO Ot I10 ESSENTIAL (PRIMARY) HYPERTENSION 02/22/2017 FLAKITA DOHERTY DO Ot R06.00 DYSPNEA, UNSPECIFIED 02/25/2017 FLAKITA DOHERTY DO M Ot E11.9 TYPE 2 DIABETES MELLITUS WITHOUT COMPLIC 02/25/2017 FLAKITA DOHERTY DO Ot I10 ESSENTIAL (PRIMARY) HYPERTENSION 02/25/2017 FLAKITA DOHERTY DO M Ot R06.00 DYSPNEA, UNSPECIFIED 02/26/2017 FLAKITA DOHERTY DO M Ot E11.9 TYPE 2 DIABETES MELLITUS WITHOUT COMPLIC 02/26/2017 FLAKITA DOHERTY DO Ot I10 ESSENTIAL (PRIMARY) HYPERTENSION 02/26/2017 FLAKITA DOHERTY DO Ot R06.00 DYSPNEA, UNSPECIFIED 02/28/2017 FLAKITA DOHERTY DO M Ot E11.9 TYPE 2 DIABETES MELLITUS WITHOUT COMPLIC 02/28/2017 FLAKITA DOHERTY DO Ot I10 ESSENTIAL (PRIMARY) HYPERTENSION 02/28/2017 FLAKITA DOHERTY DO Ot R06.00 DYSPNEA, UNSPECIFIED 04/29/2017 FLAKITA DOHERTY DO M Ot E11.9 TYPE 2 DIABETES MELLITUS WITHOUT COMPLIC 04/29/2017 FLAKITA DOHERTY DO M Ot I10 ESSENTIAL (PRIMARY) HYPERTENSION 04/29/2017 FLAKITA DOHERTY DO M Ot R06.00 DYSPNEA, UNSPECIFIED 05/21/2017 FLAKITA DOHERTY DO M Ot E11.9 TYPE 2 DIABETES MELLITUS WITHOUT COMPLIC 05/21/2017 FLAKITA DOHERTY DO M Ot I10 ESSENTIAL (PRIMARY) HYPERTENSION 05/21/2017 FLAKITA DOHERTY DO M Ot R06.00 DYSPNEA, UNSPECIFIED 05/26/2017 FLAKITA DOHERTY DO Ot E11.9 TYPE 2 DIABETES MELLITUS WITHOUT COMPLIC 05/26/2017 FLAKITA DOHERTY DO Ot I10 ESSENTIAL (PRIMARY) HYPERTENSION 05/26/2017 FLAKITA DOHERTY DO Ot R06.00 DYSPNEA, UNSPECIFIED 05/28/2017 FLAKITA DOHERTY DO Ot E11.9 TYPE 2 DIABETES MELLITUS WITHOUT COMPLIC 05/28/2017 FLAKITA DOHERTY DO Ot I10 ESSENTIAL (PRIMARY) HYPERTENSION 05/28/2017 FLAKITA DOHERTY DO Ot R06.00 DYSPNEA, UNSPECIFIED 06/12/2017 YANCI GARDUNO THREAD CHECKER Ot 427.9 CARDIAC DYSRHYTHMIA NOS 06/12/2017 VANYANCI MCDONOUGH M THREAD CHECKER Ot 786.07 WHEEZING 06/12/2017 VANYANCI MCDONOUGH M THREAD CHECKER Ot 786.2 COUGH 06/12/2017 FABI EVERETT, ANDREI Jon Ot Z01.818 ENCOUNTER FOR OTHER PREPROCEDURAL EXAMIN 06/12/2017 HERMES HYMAN DOLINE S Ot R05 COUGH 06/12/2017 CRISTIANA ARTHUR, NEELA S Ot R06.2 WHEEZING 06/12/2017 NURISNDHAO ARTHUR NEELA S Ot R10.84 GENERALIZED ABDOMINAL PAIN 06/12/2017 BROCK SCHMIDT INSIDE CONTRACTOR SALES Ot R05 COUGH 06/12/2017 BROCK SCHMIDT INSIDE CONTRACTOR SALES Ot R06.2 WHEEZING 06/12/2017 FLAKITA DOHERTY DO Ot E11.9 TYPE 2 DIABETES MELLITUS WITHOUT COMPLIC 06/12/2017 FLAKITA DOHERTY DO Ot I10 ESSENTIAL (PRIMARY) HYPERTENSION 06/12/2017 FLAKITA DOHERTY DO Ot R06.00 DYSPNEA, UNSPECIFIED 06/12/2017 FLAKITA DOHERTY DO Ot E11.9 TYPE 2 DIABETES MELLITUS WITHOUT COMPLIC 06/12/2017 FLAKITA DOHERTY DO Ot I10 ESSENTIAL (PRIMARY) HYPERTENSION 06/12/2017 FLAKITA DOHERTY DO Ot R06.00 DYSPNEA, UNSPECIFIED 06/13/2017 SAMMY PAIZ APRN Ot H93.8X1 OTHER SPECIFIED DISORDERS OF RIGHT EAR 06/13/2017 SAMMY PAIZ INSIDE CONTRACTOR SALES Ot M50.322 OTHER CERVICAL DISC DEGENERATION AT C5-C 06/13/2017 SMAMY PAIZ R INSIDE CONTRACTOR SALES Ot R22.1 LOCALIZED SWELLING, MASS AND LUMP, NECK 06/13/2017 SAMMY PAIZ INSIDE CONTRACTOR SALES Ot H93.8X1 OTHER SPECIFIED DISORDERS OF RIGHT EAR 06/13/2017 CHENCHO SAMMY R INSIDE CONTRACTOR SALES Ot M50.322 OTHER CERVICAL DISC DEGENERATION AT C5-C 06/13/2017 SAMMY PAIZ R INSIDE CONTRACTOR SALES Ot R22.1 LOCALIZED SWELLING, MASS AND LUMP, NECK 06/24/2017 NEELA HYMAN DO S Ot E11.9 TYPE 2 DIABETES MELLITUS WITHOUT COMPLIC 06/24/2017 ORENDER NEELA ARTHUR S Ot I65.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 07/23/2017 SAMMY PAIZ R INSIDE CONTRACTOR SALES Ot H93.8X1 OTHER SPECIFIED DISORDERS OF RIGHT EAR 07/23/2017 SAMMY PAIZ R INSIDE CONTRACTOR SALES Ot M50.322 OTHER CERVICAL DISC DEGENERATION AT C5-C 07/23/2017 SAMMY PAIZ R INSIDE CONTRACTOR SALES Ot R22.1 LOCALIZED SWELLING, MASS AND LUMP, NECK 08/05/2017 IVY NUNN MD Ot E11.9 TYPE 2 DIABETES MELLITUS WITHOUT COMPLIC 08/05/2017 IVY NUNN MD Ot E78.00 PURE HYPERCHOLESTEROLEMIA, UNSPECIFIED 08/05/2017 IVY NUNN MD Ot F41.9 ANXIETY DISORDER, UNSPECIFIED 08/05/2017 IVY NUNN MD Ot I10 ESSENTIAL (PRIMARY) HYPERTENSION 08/05/2017 IVY NUNN MD Ot K21.9 GASTRO-ESOPHAGEAL REFLUX DISEASE WITHOUT 08/05/2017 IVY NUNN MD Ot M54.5 LOW BACK PAIN 08/05/2017 IVY NUNN MD Ot R10.12 LEFT UPPER QUADRANT PAIN 08/05/2017 IVY NUNN MD Ot R59.0 LOCALIZED ENLARGED LYMPH NODES 08/05/2017 IVY NUNN MD, Ot Z79.82 SENIOUR INSIGHT MANAGER (CURRENT) USE OF ASPIRIN 08/05/2017 IVY NUNN MD Ot Z79.84 SENIOUR INSIGHT MANAGER (CURRENT) USE OF ORAL HYPOGLYC 08/05/2017 IVY NUNN MD, Ot Z87.19 PERSONAL HISTORY OF OTHER DISEASES OF 08/05/2017 IVY NUNN MD, Ot Z87.820 PERSONAL HISTORY OF TRAUMATIC BRAIN INJU 08/05/2017 IVY NUNN MD, Ot Z87.891 PERSONAL HISTORY OF NICOTINE DEPENDENCE 08/05/2017 IVY NUNN MD, Ot Z88.5 ALLERGY STATUS TO NARCOTIC AGENT STATUS 08/06/2017 IVY NUNN MD Ot E11.9 TYPE 2 DIABETES MELLITUS WITHOUT COMPLIC 08/06/2017 IVY NUNN MD Ot E78.00 PURE HYPERCHOLESTEROLEMIA, UNSPECIFIED 08/06/2017 IVY NUNN MD, Ot F41.9 ANXIETY DISORDER, UNSPECIFIED 08/06/2017 IVY NUNN MD, Ot I10 ESSENTIAL (PRIMARY) HYPERTENSION 08/06/2017 IVY NUNN MD, Ot K21.9 GASTRO-ESOPHAGEAL REFLUX DISEASE WITHOUT 08/06/2017 IVY NUNN MD Ot M54.5 LOW BACK PAIN 08/06/2017 IVY NUNN MD Ot R10.12 LEFT UPPER QUADRANT PAIN 08/06/2017 IVY NUNN MD, Ot R59.0 LOCALIZED ENLARGED LYMPH NODES 08/06/2017 IVY NUNN MD, Ot Z79.82 SENIOUR INSIGHT MANAGER (CURRENT) USE OF ASPIRIN 08/06/2017 IVY NUNN MD Ot Z79.84 GROUP HOME (CURRENT) USE OF ORAL HYPOGLYC 08/06/2017 IVY NUNN MD, Ot Z87.19 PERSONAL HISTORY OF OTHER DISEASES OF 08/06/2017 IVY NUNN MD, Ot Z87.820 PERSONAL HISTORY OF TRAUMATIC BRAIN INJU 08/06/2017 IVY NUNN MD, Ot Z87.891 PERSONAL HISTORY OF NICOTINE DEPENDENCE 08/06/2017 IVY NUNN MD, Ot Z88.5 ALLERGY STATUS TO NARCOTIC AGENT STATUS 08/08/2017 YANCI GARDUNO THREAD CHECKER Ot 427.9 CARDIAC DYSRHYTHMIA NOS 08/08/2017 YANCI GARDUNO THREAD CHECKER Ot 786.07 WHEEZING 08/08/2017 YANCI GARDUNO THREAD CHECKER Ot 786.2 COUGH 08/08/2017 FABI EVERETT, ANDREI Jon Ot Z01.818 ENCOUNTER FOR OTHER PREPROCEDURAL EXAMIN 08/08/2017 NEELA HYMAN DO S Ot R05 COUGH 08/08/2017 NEELA HYMAN DO S Ot R06.2 WHEEZING 08/08/2017 NEELA HYMAN DO S Ot R10.84 GENERALIZED ABDOMINAL PAIN 08/08/2017 BROCK SCHMIDT Gema INSIDE CONTRACTOR SALES Ot R05 COUGH 08/08/2017 BROCK SCHMIDT Gema INSIDE CONTRACTOR SALES Ot R06.2 WHEEZING 08/08/2017 FLAKITA DOHERTY DO Ot E11.9 TYPE 2 DIABETES MELLITUS WITHOUT COMPLIC 08/08/2017 FLAKITA DOHERTY DO Ot I10 ESSENTIAL (PRIMARY) HYPERTENSION 08/08/2017 FLAKITA DOHERTY DO Ot R06.00 DYSPNEA, UNSPECIFIED 08/08/2017 FLAKITA DOHERTY DO Ot E11.9 TYPE 2 DIABETES MELLITUS WITHOUT COMPLIC 08/08/2017 FLAKITA DOHERTY DO Ot I10 ESSENTIAL (PRIMARY) HYPERTENSION 08/08/2017 FLAKITA DOHERTY DO Ot R06.00 DYSPNEA, UNSPECIFIED 08/08/2017 SAMMY PAIZ INSIDE CONTRACTOR SALES Ot H93.8X1 OTHER SPECIFIED DISORDERS OF RIGHT EAR 08/08/2017 SAMMY PAIZ INSIDE CONTRACTOR SALES Ot M50.322 OTHER CERVICAL DISC DEGENERATION AT C5-C 08/08/2017 SAMMY PAIZ INSIDE CONTRACTOR SALES Ot R22.1 LOCALIZED SWELLING, MASS AND LUMP, NECK 08/08/2017 NURISCHRISTINA ARTHUR NEELA S Ot E11.9 TYPE 2 DIABETES MELLITUS WITHOUT COMPLIC 08/08/2017 CRISTIANA ARTHUR NEELA S Ot I65.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 08/12/2017 JONA HARTMANN MD Ot I51.7 CARDIOMEGALY 08/12/2017 JONA HARTMANN MD Ot K76.0 FATTY (CHANGE OF) LIVER, NOT ELSEWHERE C 08/12/2017 JONA HARTMANN MD Ot R59.1 GENERALIZED ENLARGED LYMPH NODES 08/14/2017 MYLA CAMP MD Ot D17.1 BENIGN LIPOMATOUS NEOPLASM OF SKIN, SUBC 08/14/2017 MYLA CAMP MD Ot R59.1 GENERALIZED ENLARGED LYMPH NODES 08/14/2017 MYLA CAMP MD Ot Z01.818 ENCOUNTER FOR OTHER PREPROCEDURAL EXAMIN 08/21/2017 MYLA CAMP MD, Ot 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, UNSP, NODES OF ING RE 08/21/2017 MYLA CAMP MD, Ot D17.1 BENIGN LIPOMATOUS NEOPLASM OF SKIN, SUBC 08/21/2017 MYLA CAMP MD, Ot E11.9 TYPE 2 DIABETES MELLITUS WITHOUT COMPLIC 08/21/2017 MYLA CAMP MD, Ot E78.00 PURE HYPERCHOLESTEROLEMIA, UNSPECIFIED 08/21/2017 MYLA CAMP MD, Ot F41.9 ANXIETY DISORDER, UNSPECIFIED 08/21/2017 MYLA CAMP MD, Ot G47.33 OBSTRUCTIVE SLEEP APNEA (ADULT) (PEDIATR 08/21/2017 MYLA CAMP MD, Ot I10 ESSENTIAL (PRIMARY) HYPERTENSION 08/21/2017 MYLA CAMP MD, Ot J44.9 CHRONIC OBSTRUCTIVE PULMONARY DISEASE, U 08/21/2017 MYLA CAMP MD, Ot Z79.82 GROUP HOME (CURRENT) USE OF ASPIRIN 08/21/2017 MYLA CAMP MD, Ot Z79.84 SENIOUR INSIGHT MANAGER (CURRENT) USE OF ORAL HYPOGLYC 08/21/2017 MYLA CAMP MD, Ot Z79.899 OTHER SENIOUR INSIGHT MANAGER (CURRENT) DRUG THERAPY 08/21/2017 MYLA CAMP MD, Ot Z87.891 PERSONAL HISTORY OF NICOTINE DEPENDENCE 09/07/2017 IVY NUNN MD, Ot E11.9 TYPE 2 DIABETES MELLITUS WITHOUT COMPLIC 09/07/2017 IVY NUNN MD, Ot E78.00 PURE HYPERCHOLESTEROLEMIA, UNSPECIFIED 09/07/2017 IVY NUNN MD, Ot F41.9 ANXIETY DISORDER, UNSPECIFIED 09/07/2017 IVY NUNN MD, Ot I10 ESSENTIAL (PRIMARY) HYPERTENSION 09/07/2017 IVY NUNN MD, Ot K21.9 GASTRO-ESOPHAGEAL REFLUX DISEASE WITHOUT 09/07/2017 IVY NUNN MD, Ot M54.5 LOW BACK PAIN 09/07/2017 IVY NUNN MD, Ot R10.12 LEFT UPPER QUADRANT PAIN 09/07/2017 IVY NUNN MD Ot R59.0 LOCALIZED ENLARGED LYMPH NODES 09/07/2017 IVY NUNN MD, Ot Z79.82 GROUP HOME (CURRENT) USE OF ASPIRIN 09/07/2017 IVY NUNN MD, Ot Z79.84 SENIOUR INSIGHT MANAGER (CURRENT) USE OF ORAL HYPOGLYC 09/07/2017 IVY NUNN MD, Ot Z87.19 PERSONAL HISTORY OF OTHER DISEASES OF TH 09/07/2017 IVY NUNN MD, Ot Z87.820 PERSONAL HISTORY OF TRAUMATIC BRAIN INJU 09/07/2017 IVY NUNN MD, Ot Z87.891 PERSONAL HISTORY OF NICOTINE DEPENDENCE 09/07/2017 IVY NUNN MD, Ot Z88.5 ALLERGY STATUS TO NARCOTIC AGENT STATUS 09/17/2017 SAMMY PAIZ R INSIDE CONTRACTOR SALES Ot H93.8X1 OTHER SPECIFIED DISORDERS OF RIGHT EAR 09/17/2017 SAMMY PAIZ R INSIDE CONTRACTOR SALES Ot M50.322 OTHER CERVICAL DISC DEGENERATION AT C5-C 09/17/2017 SAMMY PAIZ R [employer] Ot R22.1 LOCALIZED SWELLING, MASS AND LUMP, NECK 09/17/2017 JONA HARTMANN MD Ot E11.9 TYPE 2 DIABETES MELLITUS WITHOUT COMPLIC 09/17/2017 JONA HARTMANN MD Ot E66.01 MORBID (SEVERE) OBESITY DUE TO EXCESS CA 09/17/2017 JONA HARTMANN MD Ot E78.5 HYPERLIPIDEMIA, UNSPECIFIED 09/17/2017 OJNA HARTMANN MD Ot G47.33 OBSTRUCTIVE SLEEP APNEA (ADULT) (PEDIATR 09/17/2017 JONA HARTMANN MD Ot I10 ESSENTIAL (PRIMARY) HYPERTENSION 09/17/2017 JONA HARTMANN MD, Ot J44.9 CHRONIC OBSTRUCTIVE PULMONARY DISEASE, U 09/17/2017 JONA HARTMANN MD Ot R59.1 GENERALIZED ENLARGED LYMPH NODES 09/17/2017 JONA HARTMANN MD Ot Z68.41 BODY MASS INDEX (BMI) 40.0-44.9, ADULT 09/17/2017 JONA HARTMANN MD Ot Z79.82 GROUP HOME (CURRENT) USE OF ASPIRIN 09/17/2017 JONA HARTMANN MD Ot Z79.84 SENIOUR INSIGHT MANAGER (CURRENT) USE OF ORAL HYPOGLYC 09/17/2017 JONA HARTMANN MD, Ot Z79.899 OTHER SENIOUR INSIGHT MANAGER (CURRENT) DRUG THERAPY 09/17/2017 JONA HARTMANN MD, Ot Z87.891 PERSONAL HISTORY OF NICOTINE DEPENDENCE 11/06/2017 JONA HARTMANN MD Ot E11.9 TYPE 2 DIABETES MELLITUS WITHOUT COMPLIC 11/06/2017 JONA HARTMANN MD Ot E66.01 MORBID (SEVERE) OBESITY DUE TO EXCESS CA 11/06/2017 JONA HARTMANN MD Ot E78.5 HYPERLIPIDEMIA, UNSPECIFIED 11/06/2017 JONA HARTMANN MD Ot G47.33 OBSTRUCTIVE SLEEP APNEA (ADULT) (PEDIATR 11/06/2017 JONA HARTMANN MD Ot I10 ESSENTIAL (PRIMARY) HYPERTENSION 11/06/2017 JONA HARTMANN MD Ot J44.9 CHRONIC OBSTRUCTIVE PULMONARY DISEASE, U 11/06/2017 JONA HARTMANN MD Ot R59.1 GENERALIZED ENLARGED LYMPH NODES 11/06/2017 JONA HARTMANN MD Ot Z68.41 BODY MASS INDEX (BMI) 40.0-44.9, ADULT 11/06/2017 JONA HARTMANN MD Ot Z79.82 GROUP HOME (CURRENT) USE OF ASPIRIN 11/06/2017 JONA HARTMANN MD Ot Z79.84 GROUP HOME (CURRENT) USE OF ORAL HYPOGLYC 11/06/2017 JONA HARTMANN MD Ot Z79.899 OTHER GROUP HOME (CURRENT) DRUG THERAPY 11/06/2017 JONA HARTMANN MD Ot Z87.891 PERSONAL HISTORY OF NICOTINE DEPENDENCE 11/07/2017 JONA HARTMANN MD Ot C83.08 SMALL CELL B-CELL LYMPHOMA, LYMPH NODES 11/07/2017 JONA HARTMANN MD Ot E11.9 TYPE 2 DIABETES MELLITUS WITHOUT COMPLIC 11/07/2017 JONA HARTMANN MD Ot E66.01 MORBID (SEVERE) OBESITY DUE TO EXCESS CA 11/07/2017 JONA HARTMANN MD Ot E78.5 HYPERLIPIDEMIA, UNSPECIFIED 11/07/2017 JONA HARTMANN MD Ot G47.33 OBSTRUCTIVE SLEEP APNEA (ADULT) (PEDIATR 11/07/2017 JONA HARTMANN MD Ot I10 ESSENTIAL (PRIMARY) HYPERTENSION 11/07/2017 JONA HARTMANN MD Ot J44.9 CHRONIC OBSTRUCTIVE PULMONARY DISEASE, U 11/07/2017 JONA HARTMANN MD Ot Z68.41 BODY MASS INDEX (BMI) 40.0-44.9, ADULT 11/07/2017 JONA HARTMANN MD Ot Z79.82 GROUP HOME (CURRENT) USE OF ASPIRIN 11/07/2017 JONA HARTMANN MD Ot Z79.84 SENIOUR INSIGHT MANAGER (CURRENT) USE OF ORAL HYPOGLYC 11/07/2017 JONA HARTMANN MD Ot Z79.899 OTHER SENIOUR INSIGHT MANAGER (CURRENT) DRUG THERAPY 11/07/2017 JONA HARTMANN MD Ot Z87.891 PERSONAL HISTORY OF NICOTINE DEPENDENCE 11/07/2017 JONA HARTMANN MD Ot C83.08 SMALL CELL B-CELL LYMPHOMA, LYMPH NODES 11/07/2017 JONA HARTMANN MD Ot E11.9 TYPE 2 DIABETES MELLITUS WITHOUT COMPLIC 11/07/2017 JONA HARTMANN MD Ot E66.01 MORBID (SEVERE) OBESITY DUE TO EXCESS CA 11/07/2017 JONA HARTMANN MD Ot E78.5 HYPERLIPIDEMIA, UNSPECIFIED 11/07/2017 JONA HARTMANN MD Ot G47.33 OBSTRUCTIVE SLEEP APNEA (ADULT) (PEDIATR 11/07/2017 JONA HARTMANN MD Ot I10 ESSENTIAL (PRIMARY) HYPERTENSION 11/07/2017 JONA HARTMANN MD, Ot J44.9 CHRONIC OBSTRUCTIVE PULMONARY DISEASE, U 11/07/2017 JONA HARTMANN MD, Ot Z68.41 BODY MASS INDEX (BMI) 40.0-44.9, ADULT 11/07/2017 JONA HARTMANN MD Ot Z79.82 SENIOUR INSIGHT MANAGER (CURRENT) USE OF ASPIRIN 11/07/2017 JONA HARTMANN MD Ot Z79.84 GROUP HOME (CURRENT) USE OF ORAL HYPOGLYC 11/07/2017 JONA HARTMANN MD Ot Z79.899 OTHER GROUP HOME (CURRENT) DRUG THERAPY 11/07/2017 JONA HARTMANN MD, Ot Z87.891 PERSONAL HISTORY OF NICOTINE DEPENDENCE 11/21/2017 NEELA HYMAN DO Ot E11.9 TYPE 2 DIABETES MELLITUS WITHOUT COMPLIC 11/21/2017 NEELA HYMAN DO Ot I65.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 12/10/2017 MYLA CAMP MD Ot Z01.818 ENCOUNTER FOR OTHER PREPROCEDURAL EXAMIN 12/10/2017 MYLA CAMP MD Ot Z01.818 ENCOUNTER FOR OTHER PREPROCEDURAL EXAMIN Procedures Code Description Performed By Performed On 37.22 LEFT HEART CARDIAC CATH 09/03/2005 88.42 CONTRAST AORTOGRAM 09/03/2005 88.53 LT HEART ANGIOCARDIOGRAM 09/03/2005 88.56 CORONAR ARTERIOGR-2 CATH 09/03/2005 Results Test Result Range Complete blood count (CBC) with automated white blood cell (WBC) differential - 04/22/16 11:56 Blood leukocytes automated count (number/volume) 8.4 10*3/uL 4.3-11.0 Blood erythrocytes automated count (number/volume) 4.66 10*6/uL 4.35-5.85 Venous blood hemoglobin measurement (mass/volume) 13.4 g/dL 13.3-17.7 Blood hematocrit (volume fraction) 40 % 40-54 Automated erythrocyte mean corpuscular volume 85 [foz_us] 80-99 Automated erythrocyte mean corpuscular hemoglobin (mass per erythrocyte) 29 pg 25-34 Automated erythrocyte mean corpuscular hemoglobin concentration measurement ( mass/volume) 34 g/dL 32-36 Automated erythrocyte distribution width ratio 15.3 % 10.0-14.5 Automated blood platelet count (count/volume) 338 10*3/uL 130-400 Automated blood platelet mean volume measurement 9.9 [foz_us] 7.4-10.4 Automated blood neutrophils/100 leukocytes 62 % 42-75 Automated blood lymphocytes/100 leukocytes 23 % 12-44 Blood monocytes/100 leukocytes 11 % 0-12 Automated blood eosinophils/100 leukocytes 3 % 0-10 Automated blood basophils/100 leukocytes 1 % 0-10 Blood neutrophils automated count (number/volume) 5.2 10*3 1.8-7.8 Blood lymphocytes automated count (number/volume) 1.9 10*3 1.0-4.0 Blood monocytes automated count (number/volume) 0.9 10*3 0.0-1.0 Automated eosinophil count 0.2 10*3/uL 0.0-0.3 Automated blood basophil count (count/volume) 0.1 10*3/uL 0.0-0.1 Comprehensive metabolic panel - 04/22/16 11:56 Serum or plasma sodium measurement (moles/volume) 139 mmol/L 135-145 Serum or plasma potassium measurement (moles/volume) 4.0 mmol/L 3.6-5.0 Serum or plasma chloride measurement (moles/volume) 103 mmol/L 98-107 Carbon dioxide 24 mmol/L 21-32 Serum or plasma anion gap determination (moles/volume) 12 mmol/L 5-14 Serum or plasma urea nitrogen measurement (mass/volume) 16 mg/dL 7-18 Serum or plasma creatinine measurement (mass/volume) 0.93 mg/dL 0.60-1.30 Serum or plasma urea nitrogen/creatinine mass ratio 17 NRG Serum or plasma creatinine measurement with calculation of estimated glomerular filtration rate > NRG Serum or plasma glucose measurement (mass/volume) 99 mg/dL 70-105 Serum or plasma calcium measurement (mass/volume) 9.2 mg/dL 8.5-10.1 Serum or plasma total bilirubin measurement (mass/volume) 0.4 mg/dL 0.1-1.0 Serum or plasma alkaline phosphatase measurement (enzymatic activity/volume) 37 U/L 40-136 Serum or plasma aspartate aminotransferase measurement (enzymatic activity/ volume) 31 U/L 5-34 Serum or plasma alanine aminotransferase measurement (enzymatic activity/volume ) 40 U/L 0-55 Serum or plasma protein measurement (mass/volume) 7.2 g/dL 6.4-8.2 Serum or plasma albumin measurement (mass/volume) 4.6 g/dL 3.2-4.5 Complete urinalysis with reflex to culture - 04/22/16 12:08 Urine color determination YELLOW NRG Urine clarity determination CLEAR NRG Urine pH measurement by test strip 6 5-9 Specific gravity of urine by test strip 1.020 1.016- 1.022 Urine protein assay by test strip, semi-quantitative NEGATIVE NEGATIVE Urine glucose detection by automated test strip NEGATIVE NEGATIVE Erythrocytes detection in urine sediment by light microscopy NEGATIVE NEGATIVE Urine ketones detection by automated test strip NEGATIVE NEGATIVE Urine nitrite detection by test strip NEGATIVE NEGATIVE Urine total bilirubin detection by test strip NEGATIVE NEGATIVE Urine urobilinogen measurement by automated test strip (mass/volume) NORMAL NORMAL Urine leukocyte esterase detection by dipstick NEGATIVE NEGATIVE Automated urine sediment erythrocyte count by microscopy (number/high power field) NONE NRG Automated urine sediment leukocyte count by microscopy (number/high power field ) NONE NRG Bacteria detection in urine sediment by light microscopy NEGATIVE NRG Squamous epithelial cells detection in urine sediment by light microscopy 0-2 NRG Crystals detection in urine sediment by light microscopy NONE NRG Casts detection in urine sediment by light microscopy NONE NRG Mucus detection in urine sediment by light microscopy NEGATIVE NRG Complete urinalysis with reflex to culture NO NRG Influenza virus A and B antigen detection - 05/25/16 09:00 FLU RESULT NEGATIVE FOR INFLUENZA A AND B ANTIGENS BY IA NRG Streptococcus pyogenes antigen detection - 05/25/16 09:04 Streptococcus pyogenes antigen detection NEGATIVE NEGATIVE Bacterial throat culture - 05/25/16 09:04 Bacterial throat culture NBS NRG Complete blood count (CBC) with automated white blood cell (WBC) differential - 05/25/16 09:13 Blood leukocytes automated count (number/volume) 7.9 10*3/uL 4.3-11.0 Blood erythrocytes automated count (number/volume) 4.60 10*6/uL 4.35-5.85 Venous blood hemoglobin measurement (mass/volume) 13.2 g/dL 13.3-17.7 Blood hematocrit (volume fraction) 39 % 40-54 Automated erythrocyte mean corpuscular volume 85 [foz_us] 80-99 Automated erythrocyte mean corpuscular hemoglobin (mass per erythrocyte) 29 pg 25-34 Automated erythrocyte mean corpuscular hemoglobin concentration measurement ( mass/volume) 34 g/dL 32-36 Automated erythrocyte distribution width ratio 15.6 % 10.0-14.5 Automated blood platelet count (count/volume) 306 10*3/uL 130-400 Automated blood platelet mean volume measurement 9.8 [foz_us] 7.4-10.4 Automated blood neutrophils/100 leukocytes 67 % 42-75 Automated blood lymphocytes/100 leukocytes 19 % 12-44 Blood monocytes/100 leukocytes 10 % 0-12 Automated blood eosinophils/100 leukocytes 2 % 0-10 Automated blood basophils/100 leukocytes 1 % 0-10 Blood neutrophils automated count (number/volume) 5.4 10*3 1.8-7.8 Blood lymphocytes automated count (number/volume) 1.5 10*3 1.0-4.0 Blood monocytes automated count (number/volume) 0.8 10*3 0.0-1.0 Automated eosinophil count 0.2 10*3/uL 0.0-0.3 Automated blood basophil count (count/volume) 0.1 10*3/uL 0.0-0.1 [id number] - 06/12/17 10:42 Serum or plasma urea nitrogen measurement (mass/volume) 21 mg/dL 7-18 Serum or plasma creatinine measurement (mass/volume) 0.94 mg/dL 0.60-1.30 Serum or plasma urea nitrogen/creatinine mass ratio 22 NRG Serum or plasma creatinine measurement with calculation of estimated glomerular filtration rate > NRG Complete blood count (CBC) with automated white blood cell (WBC) differential - 08/04/17 21:50 Blood leukocytes automated count (number/volume) 14.2 10*3/uL 4.3-11.0 Blood erythrocytes automated count (number/volume) 4.84 10*6/uL 4.35-5.85 Venous blood hemoglobin measurement (mass/volume) 14.1 g/dL 13.3-17.7 Blood hematocrit (volume fraction) 41 % 40-54 Automated erythrocyte mean corpuscular volume 85 [foz_us] 80-99 Automated erythrocyte mean corpuscular hemoglobin (mass per erythrocyte) 29 pg 25-34 Automated erythrocyte mean corpuscular hemoglobin concentration measurement ( mass/volume) 34 g/dL 32-36 Automated erythrocyte distribution width ratio 15.8 % 10.0-14.5 Automated blood platelet count (count/volume) 296 10*3/uL 130-400 Automated blood platelet mean volume measurement 9.5 [foz_us] 7.4-10.4 Automated blood neutrophils/100 leukocytes 84 % 42-75 Automated blood lymphocytes/100 leukocytes 10 % 12-44 Blood monocytes/100 leukocytes 5 % 0-12 Automated blood eosinophils/100 leukocytes 1 % 0-10 Automated blood basophils/100 leukocytes 0 % 0-10 Blood neutrophils automated count (number/volume) 11.9 10*3 1.8-7.8 Blood lymphocytes automated count (number/volume) 1.4 10*3 1.0-4.0 Blood monocytes automated count (number/volume) 0.7 10*3 0.0-1.0 Automated eosinophil count 0.1 10*3/uL 0.0-0.3 Automated blood basophil count (count/volume) 0.0 10*3/uL 0.0-0.1 Complete urinalysis with reflex to culture - 08/04/17 21:50 Urine color determination YELLOW NRG Urine clarity determination CLEAR NRG Urine pH measurement by test strip 7 5-9 Specific gravity of urine by test strip 1.010 1.016- 1.022 Urine protein assay by test strip, semi-quantitative NEGATIVE NEGATIVE Urine glucose detection by automated test strip NEGATIVE NEGATIVE Erythrocytes detection in urine sediment by light microscopy NEGATIVE NEGATIVE Urine ketones detection by automated test strip NEGATIVE NEGATIVE Urine nitrite detection by test strip NEGATIVE NEGATIVE Urine total bilirubin detection by test strip NEGATIVE NEGATIVE Urine urobilinogen measurement by automated test strip (mass/volume) NORMAL NORMAL Urine leukocyte esterase detection by dipstick NEGATIVE NEGATIVE Automated urine sediment erythrocyte count by microscopy (number/high power field) NONE NRG Automated urine sediment leukocyte count by microscopy (number/high power field ) [HPF] NRG Bacteria detection in urine sediment by light microscopy NEGATIVE NRG Crystals detection in urine sediment by light microscopy NONE NRG Casts detection in urine sediment by light microscopy NONE NRG Mucus detection in urine sediment by light microscopy SMALL NRG Complete urinalysis with reflex to culture NO NRG Comprehensive metabolic panel - 08/04/17 21:50 Serum or plasma sodium measurement (moles/volume) 142 mmol/L 135-145 Serum or plasma potassium measurement (moles/volume) 3.3 mmol/L 3.6-5.0 Serum or plasma chloride measurement (moles/volume) 102 mmol/L 98-107 Carbon dioxide 26 mmol/L 21-32 Serum or plasma anion gap determination (moles/volume) 14 mmol/L 5-14 Serum or plasma urea nitrogen measurement (mass/volume) 23 mg/dL 7-18 Serum or plasma creatinine measurement (mass/volume) 0.92 mg/dL 0.60-1.30 Serum or plasma urea nitrogen/creatinine mass ratio 25 NRG Serum or plasma creatinine measurement with calculation of estimated glomerular filtration rate > NRG Serum or plasma glucose measurement (mass/volume) 143 mg/dL 70-105 Serum or plasma calcium measurement (mass/volume) 8.9 mg/dL 8.5-10.1 Serum or plasma total bilirubin measurement (mass/volume) 0.6 mg/dL 0.1-1.0 Serum or plasma alkaline phosphatase measurement (enzymatic activity/volume) 35 U/L 40-136 Serum or plasma aspartate aminotransferase measurement (enzymatic activity/ volume) 27 U/L 5-34 Serum or plasma alanine aminotransferase measurement (enzymatic activity/volume ) 42 U/L 0-55 Serum or plasma protein measurement (mass/volume) 7.0 g/dL 6.4-8.2 Serum or plasma albumin measurement (mass/volume) 4.4 g/dL 3.2-4.5 Serum or plasma amylase measurement (enzymatic activity/volume) - 08/04/17 21: 50 Serum or plasma amylase measurement (enzymatic activity/volume) 27 U /L 25-125 Lipase - 08/04/17 21:50 Lipase 17 U/L 8-78 Blood manual differential performed detection - 08/04/17 21:50 Blood monocytes/100 leukocytes 2 % NRG Manual blood segmented neutrophils/100 leukocytes 85 % NRG Blood band neutrophils/100 leukocytes 0 % NRG Manual blood lymphocytes/100 leukocytes 13 % NRG Manual eosinophils/100 leukocytes in nose 0 % NRG Manual blood basophils/100 leukocytes 0 % NRG Blood erythrocyte morphology finding identification NORMAL NRG Methicillin resistant Staphylococcus aureus (MRSA) screening culture - 08:00 Methicillin resistant Staphylococcus aureus (MRSA) screening culture NEG NRG Capillary blood glucose measurement by glucometer (mass/volume) - 08/14/17 08: 16 Capillary blood glucose measurement by glucometer (mass/volume) 124 mg/dL 70-110 Serum or plasma potassium measurement (moles/volume) - 08/14/17 08:25 Serum or plasma potassium measurement (moles/volume) 3.9 mmol/L 3.6-5.0 Encounters ACCT No. Visit Date/Time Discharge Status Pt. Type Provider Facility Loc./Unit Complaint [id number] 12/10/2017 12:00:00 12/10/2017 12:22:00 DIS Outpatient MYLA CAMP MD [facility] PREOP UPPER BACK LESION [id number] 11/07/2017 00:09:00 11/07/2017 23:59:59 CLS Preadmit JONA HARTMANN MD [facility] ONC [id number] 09/18/2017 14:44:00 11/06/2017 00:01:00 DIS Outpatient JONA HARTMANN MD [facility] ONC [id number] 08/14/2017 07:44:00 08/14/2017 14:55:00 DIS Outpatient MYLA CAMP MD [facility] SDC LYMPHADENOPATHY, LIPOMA LEFT FLANK [id number] 08/13/2017 11:36:00 08/13/2017 13:12:00 DIS Outpatient MYLA CAMP MD [facility] PREOP LYMPHADENOPATHY, LIPOMA LEFT FLANK [id number] 08/11/2017 11:31:00 08/11/2017 23:59:59 CLS Outpatient JONA HARTMANN MD [facility] RAD R59.1 LUMPHADENOPATHY [id number] 08/04/2017 21:13:00 08/05/2017 00:10:00 DIS Outpatient IVY NUNN MD [facility] ER L SIDE PAIN/SOB [id number] 06/23/2017 11:31:00 06/23/2017 23:59:59 CLS Outpatient NEELA HYMAN DO [facility] RAD I65.21 [id number] 06/12/2017 10:33:00 06/12/2017 23:59:59 CLS Outpatient SAMMY PAIZ [employer] [facility] RAD RIGHT NECK SWELLING [id number] 05/27/2017 10:15:00 05/27/2017 23:59:59 CLS Preadmit FLAKITA DOHERTY DO [facility] PUL SOB [id number] 05/13/2017 09:00:00 05/26/2017 00:01:00 DIS Outpatient FLAKITA DOHERTY DO [facility] PUL SOB [id number] 02/20/2017 09:00:00 02/22/2017 00:01:00 DIS Outpatient FLAKITA DOHERTY DO [facility] PUL SOB [id number] 01/09/2017 09:00:00 01/12/2017 00:01:00 DIS Outpatient FLAKITA DOHERTY DO [facility] PUL SOB [id number] 10/10/2016 14:00:00 10/10/2016 14:39:00 DIS Outpatient FLAKITA DOHERTY DO [facility] SLEEP KENIA, OBESITY, WAKING SOA [id number] 09/11/2016 12:54:00 09/11/2016 23:59:59 CLS Outpatient FALKITA DOHERTY DO [facility] RT SOB [id number] 06/13/2016 15:52:00 06/13/2016 23:59:59 CLS Outpatient BROCK SCHMIDT [employer] [facility] RAD COUGH,WHEEZING, CONGESTION [id number] 05/25/2016 08:26:00 05/25/2016 10:55:00 DIS Emergency PO [place], MICHELLE Schaeffer [facility] ER CONGESTION/BREAKING OUT IN A SWEAT [id number] 04/22/2016 11:08:00 04/22/2016 23:59:59 CLS Outpatient NEELA HYMAN DO [facility] RAD L FLANK ABD PAIN [id number] 08/14/2015 14:25:00 08/14/2015 23:59:59 CLS Outpatient NEELA HYMAN DO [facility] RAD COUGH,WHEEZING [id number] 03/29/2015 10:22:00 03/29/2015 14:55:00 DIS Outpatient ANDREI DUNLAP MD [facility] LT.CARPEL TUNNEL [id number] 03/28/2015 13:45:00 03/28/2015 23:59:59 CLS Outpatient ANDREI DUNLAP MD [facility] PREOP LT CARPEL TUNNEL [id number] 09/21/2014 12:39:00 09/21/2014 23:59:59 CLS Outpatient YANCI GARDUNO [facility] CARD COUGHING WHEEZING [id number] 12/11/2017 10:00:00 PEN Preadmit MLYA CAMP MD [facility] UPPER BACK LESION [id number] 08/15/2016 09:39:00 Document Registration [id number] 08/15/2016 09:39:00 Document Registration [id number] 08/15/2016 09:39:00 Document Registration [id number] 08/15/2016 09:39:00 Document Registration [id number] 09/22/2014 08:31:00 Document Registration [id number] 10/21/2008 08:05:00 Document Registration [id number] 09/16/2005 20:16:00 Document Registration [id number] 09/03/2005 15:15:00 Document Registration 03/17/18 11/24/2017 16:21:06 11/24/2017 23:59:59 CLS Outpatient Neela Hyman [id number] 09/22/2014 04:47:46 ACT Document Registration
[2017-12-11] MEDS ORDERED: LACTATED RINGERS 1,000 ML IV PRN (09:00)
[2017-12-11] MEDS ORDERED: ceFAZolin 2 GM IV Premixed 50 ML IV ONE (09:00)
[2017-12-11] MEDS ORDERED: ceFAZolin 2 GM IV Premixed 50 ML ONE (09:09)
[2017-12-11 09:20] VITALS: BP 151/90
[2017-12-11] MEDS ORDERED: CATHETER FLUSH 10 ML SYR IV PRN (09:30)
[2017-12-11] MEDS ORDERED: ONDANSETRON 4 MG/2 ML (SDV) Z0FRAN ONE (10:14)
[2017-12-11] MEDS ORDERED: proPOfol 200 MG/20 ML (DIPRIVAN) VIAL IV ONE (10:14)
[2017-12-11] MEDS ORDERED: ROCURONIUM 10 MG/ML 5 ML SYRINGE IV ONE (10:14)
[2017-12-11] MEDS ORDERED: MIDAZOLAM 2 MG/2 ML (VERSED) VIAL ONE (10:15)
[2017-12-11] MEDS ORDERED: SEVOFLURANE (ULTANE) 15 ML INHAL SOLN ONE ×4 (10:15→13:56)
[2017-12-11] MEDS ORDERED: fentaNYL INJECTION 100 MCG/2 ML AMP ONE (10:15)
[2017-12-11] MEDS ORDERED: LIDOCAINE PF 2% 5 ML (XYLOCAINE) VIAL ONE (10:15)
[2017-12-11] MEDS ORDERED: BUP/EPI 0.5% 1:200,000 (SENSORCAINE) 30 ML VIAL ONE (10:22)
--- NOTE | 2017-12-11 11:01 | Progress Note-Pre Operative ---
Pre-Operative Progress Note H&P Reviewed The H&P was reviewed, patient examined and no changes noted. Date Seen by Provider: Dec 11, 2017 Time Seen by Provider: 11:00 Date H&P Reviewed: Dec 11, 2017 Time H&P Reviewed: 11:00 Pre-Operative Diagnosis: persistent symptomatic skin lesion back(7cm) MYLA CAMP MD Dec 11, 2017 11:01 am
[2017-12-11] MEDS ORDERED: ACETAMINOPHEN 325 MG TABLET PO PRN (11:15)
[2017-12-11] MEDS ORDERED: HYDROcodone/APAP 5 MG/325 MG (LORTAB) TAB PO ONE (11:15)
[2017-12-11] MEDS ORDERED: morphine INJ 10 MG/ML 1ML (SYR OR VIAL) IVP PRN (11:15)
[2017-12-11] MEDS ORDERED: ONDANSETRON 4 MG/2 ML (SDV) Z0FRAN IVP PRN (11:15)
[2017-12-11] MEDS ORDERED: EPINEPHrine INJECTION 1 MG/ML AMP ONE (12:25)
--- NOTE | 2017-12-11 13:23 | Progress Note-Post Operative ---
Post-Operative Progess Note Surgeon (s)/Hose Sprayer (s) Surgeon MYLA CAMP MD Hose Sprayer: rainer chun APRN Pre-Operative Diagnosis persistent symptomatic skin lesion back(7cm) Post-Operative Diagnosis same (9x7cm) Procedure & Operative Findings Date of Procedure 12/11/17 Procedure Performed/Findings excision skin lesion upper back(9x7cm) with split thickness skin graft. Anesthesia Type GET Estimated Blood Loss Estimated blood loss (mL): minimal Specimens/Packing Specimens Removed upper back skin lesion. MYLA CAMP MD Dec 11, 2017 13:23
[2017-12-11] MEDS ORDERED: HYDR-34 PO (13:27)
--- NOTE | 2017-12-11 13:32 | Discharge Inst-Surgical ---
D/C Lap Instructions-ZOË New, Converted, or Re-Newed RX: RX on Chart Follow Up Appt in 2 weeks Activity as tolerated No driving for 24 hours No driving while on pain medications Incentive Spirometry use every 2 hours while awake Regular Diet Symptoms to Report: Fever over 101 degree F, Nausea/Vomiting Infection Signs and Symptoms to report: Increased redness, Foul odor of wound, Increased drainage Bathing instructions: May shower Operative Area Clean/Dry; Keep incision clean/dry If any problems/questions: Contact your physician or go to Emergency Room MYLA CAMP MD Dec 11, 2017 13:32
[2017-12-11] MEDS ORDERED: RT-ALBUTEROL SULF 2.5 MG/3 ML PRE-MIX VIAL ONE (13:45)
[2017-12-11] MEDS: morphine INJ 10 MG/ML 1ML (SYR OR VIAL) IVP PRN ×2 (13:52→14:05)
[2017-12-11] MEDS ORDERED: SUCCINYLCHOLINE INJ 100 MG/5 ML SYR ONE (13:57)
[2017-12-11 14:45] VITALS: BP 99/83
[2017-12-11 15:15] VITALS: BP 130/76
[2017-12-11 15:45] VITALS: BP 137/93
[2017-12-11 16:15] VITALS: BP 137/93
--- NOTE | 2017-12-11 21:07 | OPERATIVE REPORT ---
DATE OF SERVICE: 12/11/2017 ATTENDING PRIMARY CARE PHYSICIAN: Dr. Hyman. PREOPERATIVE DIAGNOSIS: Recurrent large symptomatic skin lesion, mid upper back. POSTOPERATIVE DIAGNOSIS: Recurrent large symptomatic skin lesion, mid upper back with the dimensions of the lesion 9 x 7 cm in size. PROCEDURE: Full-thickness excision of symptomatic skin lesion of the upper back, 9 x 7 cm in size with a split-thickness skin graft taken from the left lateral thigh. SURGEON: Myla Camp MD ANESTHESIA: General endotracheal. ESTIMATED BLOOD LOSS: Minimal. FINDINGS: A large full-thickness skin lesion, which appears to be some form of skin cancer with excised dimensions 9 x 7 cm in size. DISPOSITION: The patient tolerated the procedure well. INDICATIONS: The patient is a 67-year-old male known to us. He developed flank pain and was seen in the Emergency Department where a CT scan was performed, which did show lymphadenopathy of the pelvis concerning for a lymphoproliferative disorder. 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 He was referred to oncology where the recommendation was made to proceed with close monitoring. He went on vacation several weeks ago and a raised red lesion developed consistent with a sebaceous cyst of his upper back. He was started on antibiotics; however, the lesion persisted. He underwent incision and drainage of the lesion, which appeared to be consistent with a sebaceous cyst; however, the lesion opened, which was incised and drained again and another round of antibiotics on 11/19/2017. He was seen in the office again and the lesion had grown significantly larger in size and was measured to be approximately 7 cm in size. We feel that this may be a manifestation of his lymphoproliferative disorder versus a squamous cell or basal cell skin cancer. DESCRIPTION OF PROCEDURE: The patient was brought to the operating room, laid supine on the table. After adequate IV pain and sedative medications and general endotracheal intubation, the patient was placed in left lateral decubitus position. The lesion was measured out 9 x 7 cm in size. The wound was then anesthetized using 0.5% Marcaine with epinephrine and the entire skin lesion was excised to subcutaneous fat using a 15 blade. Good hemostasis was achieved using electrocautery. We then decided with a split-thickness skin graft taken from the left lateral thigh. The dermatome was used 2 inches in width at 0.3 mm thickness. This was then meshed 1:1.5 ratio. The excision site was then covered with epinephrine soaked gauze and then covered with Op-Site. We then proceeded with placement of the split-thickness skin graft. The graft was placed in the wound bed and multiple interrupted 4-0 Prolene sutures were placed around the rim of the lesion or attaching the edge of the graft to the skin. Several sutures were placed in the bed due to the depth of the lesion as well. The entire bed was then sprayed with Tisseel fibrin glue and pressure held for approximately 2 minutes. The dressing was removed and the graft was firmly placed. This was then covered with a nonstick gauze followed by a 4 x 4 followed by large Op-Site. The patient tolerated the procedure well. We will have him follow up in the office in approximately 1 week to remove the dressing and to evaluate the wound. Job ID: [id number] DocumentID: [id number] Dictated Date: 12/11/2017 13:39:05 Telegraph Equipment Maintainer Date: 12/11/2017 21:07:00 Dictated By: MYLA CAMP MD MTDZeina
== END 2017-12-11 16:20 | disposition home or self-care (01) ==
LOC: SDC 08:50
PROVIDERS: ATTEND Surgery
DX: C83.39 Diffuse large B-cell lymphoma, extranodal and solid organ sites (principal); C85.95 Non-Hodgkin lymphoma, unspecified, lymph nodes of inguinal region and lower limb; E11.9 Type 2 diabetes mellitus without complications; I10 Essential (primary) hypertension; J44.9 Chronic obstructive pulmonary disease, unspecified; G47.33 Obstructive sleep apnea (adult) (pediatric); Z79.84 Long term (current) use of oral hypoglycemic drugs; Z79.82 Long term (current) use of aspirin; Z79.899 Other long term (current) drug therapy; Z87.891 Personal history of nicotine dependence
CPT/HCPCS: 82962; 87081; 94664

== ENCOUNTER 2017-12-18 14:38 | Outpatient (RCR) | payer OTHER, MEDICARE ==
[2017-12-18 14:54] LABS: BASOPHILS # (AUTO) 0.1 10^3/uL (0.0-0.1); BASOPHILS % (AUTO) 1 % (0-10); EOSINOPHILS # (AUTO) 0.2 10^3/uL (0.0-0.3); EOSINOPHILS % (AUTO) 2 % (0-10); HEMATOCRIT 37 % (40-54); HEMOGLOBIN 12.7 G/DL (13.3-17.7); LYMPHOCYTES # (AUTO) 3.1 X 10^3 (1.0-4.0); LYMPHOCYTES % (AUTO) 29 % (12-44); MEAN CORPUSCULAR HEMOGLOBIN 29 PG (25-34); MEAN CORPUSCULAR HGB CONC 34 G/DL (32-36); MEAN CORPUSCULAR VOLUME 85 FL (80-99); MEAN PLATELET VOLUME 10.2 FL (7.4-10.4); MONOCYTES # (AUTO) 1.1 X 10^3 (0.0-1.0); MONOCYTES % (AUTO) 10 % (0-12); NEUTROPHILS # (AUTO) 6.3 X 10^3 (1.8-7.8); NEUTROPHILS % (AUTO) 58 % (42-75); PLATELET COUNT 322 10^3/uL (130-400); RED BLOOD COUNT 4.38 10^6/uL (4.35-5.85); RED CELL DISTRIBUTION WIDTH 16.6 % (10.0-14.5); WHITE BLOOD COUNT 10.7 10^3/uL (4.3-11.0)
[2017-12-18 15:15] LABS: BUN/CREATININE RATIO 19; CARBON DIOXIDE 27 MMOL/L (21-32); CHLORIDE 106 MMOL/L (98-107); CREATININE SERUM 0.89 MG/DL (0.60-1.30); POTASSIUM 3.6 MMOL/L (3.6-5.0); SODIUM 144 MMOL/L (135-145)
[2017-12-18 15:16] LABS: ALANINE AMINOTRANSFERASE 40 U/L (0-55); ALBUMIN 4.4 GM/DL (3.2-4.5); ALKALINE PHOSPHATASE 38 U/L (40-136); BILIRUBIN,TOTAL 0.4 MG/DL (0.1-1.0); CALCIUM 9.5 MG/DL (8.5-10.1); GFR ESTIMATED > 60; GLUCOSE 114 MG/DL (70-105)
[2018-01-07 15:01] LABS: BASOPHILS % (AUTO) 0 % (0-10); EOSINOPHILS # (AUTO) 0.1 10^3/uL (0.0-0.3); EOSINOPHILS % (AUTO) 2 % (0-10); HEMATOCRIT 39 % (40-54); HEMOGLOBIN 12.8 G/DL (13.3-17.7); LYMPHOCYTES # (AUTO) 2.3 X 10^3 (1.0-4.0); LYMPHOCYTES % (AUTO) 25 % (12-44); MEAN CORPUSCULAR HEMOGLOBIN 28 PG (25-34); MEAN CORPUSCULAR HGB CONC 33 G/DL (32-36); MEAN CORPUSCULAR VOLUME 86 FL (80-99); MONOCYTES # (AUTO) 1.1 X 10^3 (0.0-1.0); MONOCYTES % (AUTO) 12 % (0-12); NEUTROPHILS # (AUTO) 5.5 X 10^3 (1.8-7.8); NEUTROPHILS % (AUTO) 61 % (42-75); PLATELET COUNT 296 10^3/uL (130-400); RED BLOOD COUNT 4.53 10^6/uL (4.35-5.85); RED CELL DISTRIBUTION WIDTH 17.1 % (10.0-14.5); WHITE BLOOD COUNT 9.1 10^3/uL (4.3-11.0)
[2018-01-07 15:21] LABS: ALANINE AMINOTRANSFERASE 46 U/L (0-55); ALBUMIN 4.4 GM/DL (3.2-4.5); ALKALINE PHOSPHATASE 38 U/L (40-136); BILIRUBIN,TOTAL 0.5 MG/DL (0.1-1.0); BUN/CREATININE RATIO 19; CALCIUM 9.3 MG/DL (8.5-10.1); CARBON DIOXIDE 24 MMOL/L (21-32); CHLORIDE 103 MMOL/L (98-107); CREATININE SERUM 0.88 MG/DL (0.60-1.30); GFR ESTIMATED > 60; GLUCOSE 141 MG/DL (70-105); POTASSIUM 3.5 MMOL/L (3.6-5.0); SODIUM 141 MMOL/L (135-145)
[2018-01-08 07:07] LABS: HEPATITIS C ANTIBODY C Non-Reactive (Non-Reactive)
== END 2018-01-07 14:34 | disposition home or self-care (01) ==
LOC: ONC 14:38
PROVIDERS: ATTEND Internal Medicine Hematology & Oncology
DX: C83.39 Diffuse large B-cell lymphoma, extranodal and solid organ sites (principal); C85.95 Non-Hodgkin lymphoma, unspecified, lymph nodes of inguinal region and lower limb; J44.9 Chronic obstructive pulmonary disease, unspecified; I10 Essential (primary) hypertension; E11.9 Type 2 diabetes mellitus without complications; E78.5 Hyperlipidemia, unspecified; G47.33 Obstructive sleep apnea (adult) (pediatric); E66.01 Morbid (severe) obesity due to excess calories; Z68.41 Body mass index [BMI] 40.0-44.9, adult; Z79.84 Long term (current) use of oral hypoglycemic drugs; Z79.82 Long term (current) use of aspirin; Z79.899 Other long term (current) drug therapy; Z87.891 Personal history of nicotine dependence
CPT/HCPCS: 36415; 80053; 80074; 83615; 84550; 85025; 86703; 99213

== ENCOUNTER → 2017-12-22 | Outpatient (CLI) | payer OTHER, MEDICARE ==
[~2017-12-22] MED LIST changes: +IOHEXOL 350 MG/ML 100 ML (OMNIPAQUE 350) VIAL IV ONE; +NS 100 ML (IVPB) BAG IV ONE
--- NOTE | 2017-12-22 13:38 | Diagnostic Imaging Report ---
PROCEDURE: CT chest with contrast, CT abdomen and pelvis with and without contrast. TECHNIQUE: Pre and post intravenous contrast axial imaging of the abdomen and pelvis and post contrast axial imaging of the chest were performed. INDICATION: Lymphoma, followup. Prior CT chest from 08/11/[address] abdomen and pelvis from 08/04/2017. CT chest: FINDINGS: Marker lymph node in the left axilla measures approximately 12 mm compared with 11 mm. Numerous additional prominent lymph nodes are identified in the axillae bilaterally. The right paratracheal node previously described measures approximately 14 mm compared with 12 mm. No other mediastinal or hilar lymphadenopathy is seen. Heart remains enlarged. No pericardial or pleural fluid is detected. Lungs appear to be fairly clear. No masses or nodules are seen. Severe degenerative changes in the right shoulder are noted. IMPRESSION: Overall stable CT of the chest when compared with prior examination from 08/11/2017. Mildly prominent axillary and mediastinal lymph nodes appear to be fairly stable. CT abdomen and pelvis: FINDINGS: Low density throughout the liver is again noted consistent with steatosis. No discrete liver mass is identified. The pancreas and spleen are unremarkable. No adrenal mass is seen. Complex renal mass measures approximately 3.7 x 3.2 cm compared with 3.9 x 2.9 cm. No other renal mass is detected. No calculi or hydronephrosis is seen. Aorta is calcified but nonaneurysmal. Small central retroperitoneal lymph nodes are noted, largest at the level of the kidneys in the left para-aortic region measuring 10 mm compared with 11 mm. Larger nodes are more inferiorly located at the aortic bifurcation as well as along the common and external iliac chains. Marker lymph node on the right measures 3.8 x 4.8 cm compared with 3.3 x 4.6 cm. Marker node on the left measures 6.2 x 3.5 cm. When measured by the same technique, this measured 5.8 x 3.4 cm. These do produce some impression upon the bladder bilaterally. Mildly prominent inguinal lymph nodes are present as well and appear similar. There is no ascites. Bowel loops are normal caliber. There is diverticulosis of the sigmoid colon but no evidence of acute diverticulitis. Bony structures are nonacute. IMPRESSION: 1. There has been some increase in size in bilateral iliac chain lymphadenopathy when compared with CT from 08/04/2017. No additional abnormality is seen. There continues to be hepatic steatosis. 2. Uncomplicated diverticulosis. Dictated by: Dictated on workstation # [id number]
== END ==
LOC: RAD 12:25
PROVIDERS: ATTEND Internal Medicine Hematology & Oncology
DX: C83.08 Small cell B-cell lymphoma, lymph nodes of multiple sites (principal); K76.0 Fatty (change of) liver, not elsewhere classified; K57.30 Diverticulosis of large intestine without perforation or abscess without bleeding
CPT/HCPCS: 71260; 74178

== ENCOUNTER → 2017-12-23 | Outpatient (CLI) | payer OTHER, MEDICARE ==
[~2017-12-23] MED LIST changes: -IOHEXOL 350 MG/ML 100 ML (OMNIPAQUE 350) VIAL IV ONE; -NS 100 ML (IVPB) BAG IV ONE
--- NOTE | 2017-12-23 12:50 | Diagnostic Imaging Report ---
INDICATION: Lymphocytic lymphoma. The study is performed for initial staging. TECHNIQUE: The patient was administered 13.0 mCi F-18 FDG intravenously, administered in the right hand, and PET imaging from the top of the skull to the mid thighs was performed. In addition, noncontrast CT was performed for attenuation correction and anatomic correlation. COMPARISON: No prior PET studies are available for comparison. Comparison is made with recent CT of the chest, abdomen, and pelvis from one day earlier. FINDINGS: There is symmetric uptake of activity throughout the brain. The neck is unremarkable. No FDG-avid lymphadenopathy in the chest is identified. There is physiologic activity in the mediastinum. Pulmonary parenchyma is unremarkable. Physiologic activity within the GI and tracts is seen in the abdomen and pelvis. The enlarged lymph nodes in the central retroperitoneum and along the iliac chains bilaterally noted on recent CT do not show FDG avidity. IMPRESSION: Unremarkable PET/CT study. The lymphadenopathy noted in the abdomen and pelvis on recent CT does not demonstrate FDG avidity. No abnormal foci of hypermetabolism are identified. Dictated by: Dictated on workstation # [id number]
== END ==
LOC: RAD 07:51
PROVIDERS: ATTEND Internal Medicine Hematology & Oncology
DX: C83.08 Small cell B-cell lymphoma, lymph nodes of multiple sites (principal)

== ENCOUNTER 2017-12-26 08:33 | Outpatient (CLI) | payer OTHER, MEDICARE ==
[~2017-12-26] VITALS: Ht 188 cm; Wt 133.8 kg
[2017-12-26] VITALS (9 sets, daily range): BP systolic 156–197; BP diastolic 90–108
[2017-12-26] MEDS ORDERED: NS IV 1000 ML 1,000 ML IV STA (09:01)
[2017-12-26] MEDS ORDERED: fentaNYL INJECTION 100 MCG/2 ML AMP IVP PRN (09:15)
[2017-12-26] MEDS ORDERED: MIDAZOLAM 2 MG/2 ML (VERSED) VIAL IVP PRN (09:15)
[2017-12-26] MEDS ORDERED: LIDOCAINE 1% INJ 20 ML 20 ML VIAL INJ ONE (09:15)
[2017-12-26 09:33] LABS: BASOPHILS % (AUTO) 1 % (0-10); EOSINOPHILS # (AUTO) 0.2 10^3/uL (0.0-0.3); EOSINOPHILS % (AUTO) 2 % (0-10); HEMATOCRIT 36 % (40-54); HEMOGLOBIN 12.5 G/DL (13.3-17.7); LYMPHOCYTES # (AUTO) 1.8 X 10^3 (1.0-4.0); LYMPHOCYTES % (AUTO) 22 % (12-44); MEAN CORPUSCULAR HEMOGLOBIN 29 PG (25-34); MEAN CORPUSCULAR HGB CONC 35 G/DL (32-36); MEAN CORPUSCULAR VOLUME 84 FL (80-99); MEAN PLATELET VOLUME 10.4 FL (7.4-10.4); MONOCYTES # (AUTO) 0.8 X 10^3 (0.0-1.0); MONOCYTES % (AUTO) 9 % (0-12); NEUTROPHILS # (AUTO) 5.4 X 10^3 (1.8-7.8); NEUTROPHILS % (AUTO) 66 % (42-75); PLATELET COUNT 303 10^3/uL (130-400); RED BLOOD COUNT 4.28 10^6/uL (4.35-5.85); RED CELL DISTRIBUTION WIDTH 16.4 % (10.0-14.5); WHITE BLOOD COUNT 8.2 10^3/uL (4.3-11.0)
[2017-12-26 09:46] LABS: ABSOLUTE RETIC # 80 10e9/L (24-90); RETICULOCYTE % 1.86 % (0.50-2.40)
[2017-12-26 09:50] LABS: INR 0.9 (0.8-1.4); PROTHROMBIN TIME PATIENT 12.4 SEC (12.2-14.7)
[2017-12-26 10:15] LABS: BAND NEUTROPHILS 0 %; BASOPHILS % (MANUAL) 0 %; EOSINOPHILS % (MANUAL) 1 %; LYMPHOCYTES % (MANUAL) 26 %; MONOCYTES % (MANUAL) 8 %; NEUTROPHILS % (MANUAL) 65 %; RBC MORPH NORMAL
[2017-12-26] MEDS ORDERED: HYDROcodone/APAP 5 MG/325 MG (LORTAB) TAB PO PRN (10:30)
--- NOTE | 2017-12-26 11:07 | Pre-Procedure Progress Note ---
Pre-Procedure Progress Note H&P Reviewed The H&P was reviewed, patient examined and no changes noted. Date H&P Reviewed: Dec 26, 2017 Time H&P Reviewed: 08:00 Pre-Procedure Diagnosis: Lymphoma ALBERTO NEIL MD Dec 26, 2017 11:07
--- NOTE | 2017-12-26 11:10 | Diagnostic Imaging Report ---
INDICATION: Lymphoma. Patient presents for CT guided bone marrow biopsy. PROCEDURE: Patient was brought to the CT suite and placed on table in the prone position. Axial imaging through the pelvis was performed to evaluate appropriate entry site. Bone marrow biopsy needle was advanced and placed with its tip adjacent to the posterior cortex of the right iliac bone. Bone marrow drill was used to advance the needle beyond the cortex into the marrow. Two bone marrow aspirates were obtained. Next, biopsy drill was used to obtain a bone marrow core. Needle was removed and hemostasis was obtained using manual compression. Patient tolerated the procedure well and left the department in stable condition. IMPRESSION: Successful CT-guided bone marrow aspiration and core biopsy, as described. Dictated by: Dictated on workstation # [id number]
--- OUTSIDE RECORDS SUMMARY | 2017-12-27 03:44 | XMS REPORT | Continuity of Care Document ---
Author Author [facility] Organization [facility] Address Unknown Phone Unavailable Allergies Active Description Code Type Severity Reaction Onset Reported/Identified Relationship to Patient Clinical Status Yes codeine [id number] Drug Allergy Unknown N/A 09/03/2005 Yes codeine [id number] Drug Allergy Mild RASH 03/29/2015 Yes codeine [id number] Drug Allergy Mild RASH, PATIENT H 03/29/2015 [...] TRIPPING, OR STUMBLI 09/23/2014 VANBECELAERE, YANCI M LABORER GOLF COURSE Ot 427.9 09/23/2014 VANBECELAERE, YANCI M LABORER GOLF COURSE Ot 786.07 09/23/2014 VANBECELAERE, YANCI M LABORER GOLF COURSE Ot 786.2 09/23/2014 VANBECELAERE, YANCI M LABORER GOLF COURSE Ot 427.9 09/23/2014 VANBECELAERE, YANCI M LABORER GOLF COURSE Ot 786.07 09/23/2014 VANBECELAERE, YANCI M LABORER GOLF COURSE Ot 786.2 09/28/2014 VANBECELAERE, YANCI M LABORER GOLF COURSE Ot 427.9 09/28/2014 VANBECELAERE, YANCI M LABORER GOLF COURSE Ot 786.07 09/28/2014 VANBECELAERE, YANCI M LABORER GOLF COURSE Ot 786.2 10/22/2014 VANBECELAERE, YANCI Nguyễn LABORER GOLF COURSE Ot 427.9 10/22/2014 DANYELLELAEMAYUR, YANCI M LABORER GOLF COURSE Ot 786.07 10/22/2014 SHAAN, YANCI M LABORER GOLF COURSE Ot 786.2 03/29/2015 FABI EVERETT, ANDREI Jon [...] FABI EVERETT, ANDREI Jon Ot Z79.899 OTHER DIRECTOR OF CHANNEL MARKETING (CURRENT) DRUG THERAPY 03/29/2015 FABI EVERETT, ANDREI Jon Ot Z87.891 PERSONAL HISTORY OF NICOTINE DEPENDENCE 08/09/2015 SHAAN YANCI M LABORER GOLF COURSE Ot 427.9 08/09/2015 SHAAN, YANCI M LABORER GOLF COURSE Ot 786.07 08/09/2015 SIMONA GRADUNOSA M LABORER GOLF COURSE Ot 786.2 08/09/2015 FABI EVERETT, ANDREI Jon Ot Z01.818 08/14/2015 DANYELLELAEMAYUR, YANCI M LABORER GOLF COURSE Ot 427.9 08/14/2015 DANYELLELAEMAYUR, YANCI M LABORER GOLF COURSE Ot 786.07 08/14/2015 DANYELLELAEMAYUR, YANCI M LABORER GOLF COURSE Ot 786.2 08/14/2015 FABI EVERETT, ANDREI Jon Ot Z01.818 10/17/2015 NEELA HYMAN DO S Ot R05 COUGH 10/17/2015 NEELA HYMAN DO S Ot R06.2 WHEEZING 04/03/2016 NEELA HYMAN DO S Ot R05 COUGH 04/03/2016 NEELA HYMAN DO S Ot R06.2 WHEEZING 04/22/2016 YANCI GARDUNO LABORER GOLF COURSE Ot 427.9 CARDIAC DYSRHYTHMIA NOS 04/22/2016 VANBECYANCI IZQUIERDO LABORER GOLF COURSE Ot 786.07 WHEEZING 04/22/2016 SHAANYANCI LABORER GOLF COURSE Ot 786.2 COUGH 04/22/2016 FABI EVERETT, ANDREI [...] COUGH 05/25/2016 MICHELLE FONTENOT MD Ot Z79.4 CORRECTION (CURRENT) USE OF INSULIN 05/25/2016 MICHELLE FONTENOT MD Ot Z79.82 DIRECTOR OF CHANNEL MARKETING (CURRENT) USE OF ASPIRIN 05/25/2016 MICHELLE FONTENOT MD Ot Z79.84 CORRECTION (CURRENT) USE OF ORAL HYPOGLYC 05/25/2016 MICHELLE FONTENOT MD Ot Z79.899 OTHER CORRECTION (CURRENT) DRUG THERAPY 05/25/2016 MICHELLE FONTENOT MD Ot Z87.891 PERSONAL HISTORY OF NICOTINE DEPENDENCE 05/28/2016 MICHELLE FONTENOT MD Ot E11.9 TYPE 2 DIABETES MELLITUS WITHOUT COMPLIC 05/28/2016 MICHELLE FONTENOT MD Ot I10 ESSENTIAL (PRIMARY) HYPERTENSION 05/28/2016 MICHELLE FONTENOT MD Ot J06.9 ACUTE UPPER RESPIRATORY INFECTION, UNSPE 05/28/2016 MICHELLE FONTENOT MD Ot R05 COUGH 05/28/2016 MICHELLE FONTENOT MD Ot Z79.4 CORRECTION (CURRENT) USE OF INSULIN 05/28/2016 MICHELLE FONTENOT MD Ot Z79.82 DIRECTOR OF CHANNEL MARKETING (CURRENT) USE OF ASPIRIN 05/28/2016 MICHELLE FONTENOT MD Ot Z79.84 DIRECTOR OF CHANNEL MARKETING (CURRENT) USE OF ORAL HYPOGLYC 05/28/2016 MICHELLE FONTENOT MD Ot Z79.899 OTHER DIRECTOR OF CHANNEL MARKETING (CURRENT) DRUG THERAPY 05/28/2016 MICHELLE FONTENOT MD Ot Z87.891 PERSONAL HISTORY OF NICOTINE DEPENDENCE 05/28/2016 MICHELLE FONTENOT MD Ot E11.9 TYPE 2 DIABETES MELLITUS WITHOUT COMPLIC 05/28/2016 MICHELLE FONTENOT MD Ot I10 ESSENTIAL (PRIMARY) HYPERTENSION 05/28/2016 MICHELLE FONTENOT MD Ot J06.9 ACUTE UPPER RESPIRATORY INFECTION, UNSPE 05/28/2016 MICHELLE FONTENOT MD Ot R05 COUGH 05/28/2016 MICHELLE FONTENOT MD Ot Z79.4 CORRECTION (CURRENT) USE OF INSULIN 05/28/2016 MICHELLE FONTENOT MD Ot Z79.82 DIRECTOR OF CHANNEL MARKETING (CURRENT) USE OF ASPIRIN 05/28/2016 MICHELLE FONTENOT MD Ot Z79.84 DIRECTOR OF CHANNEL MARKETING (CURRENT) USE OF ORAL HYPOGLYC 05/28/2016 MICHELLE FONTENOT MD Ot Z79.899 OTHER CORRECTION (CURRENT) DRUG THERAPY 05/28/2016 MICHELLE FONTENOT MD Ot Z87.891 PERSONAL HISTORY OF NICOTINE DEPENDENCE 06/14/2016 NEELA HYMAN DO Ot R10.84 GENERALIZED ABDOMINAL PAIN 06/14/2016 BROCK SCHMIDT DIRECTOR PEOPLESOFT Ot R05 COUGH 06/14/2016 BROCK SCHMIDT DIRECTOR [employer]OP[employer] Ot R06.2 WHEEZING 06/19/2016 BROCK SCHMIDT DIRECTOR [employer] Ot R05 COUGH 06/19/2016 BROCK SCHMIDT DIRECTOR [employer] Ot R06.2 WHEEZING 07/23/2016 BROCK SCHMIDT DIRECTOR [employer]OP[employer] Ot R05 COUGH 07/23/2016 BROCK SCHMIDT DIRECTOR [employer]OP[employer] Ot R06.2 WHEEZING 08/15/2016 Ot 285.9 08/15/2016 Ot 790.29 08/15/2016 FABI EVERETT, ANDREI Jon Ot Z01.818 ENCOUNTER FOR OTHER PREPROCEDURAL EXAMIN 08/15/2016 BROCK SCHMIDT DIRECTOR PEOP[employer] Ot R05 COUGH 08/15/2016 BROCK SCHMIDT DIRECTOR [employer] Ot R06.2 WHEEZING 08/15/2016 DANYELLYANCI IZQUIERDO LABORER GOLF COURSE Ot 427.9 CARDIAC DYSRHYTHMIA NOS 08/15/2016 YANCI GARDUNO LABORER GOLF COURSE Ot 786.07 WHEEZING 08/15/2016 JOEYJEZYANCI IZQUIERDO LABORER GOLF COURSE Ot 786.2 COUGH 08/15/2016 FABI EVERETT, ANDREI Jon Ot Z01.818 ENCOUNTER FOR OTHER PREPROCEDURAL EXAMIN 08/15/2016 ORENDER DO, NEELA S Ot R05 COUGH 08/15/2016 ORENDER DO, NEELA S Ot R06.2 WHEEZING 08/15/2016 ORENDER DO, NEELA S Ot R10.84 GENERALIZED ABDOMINAL PAIN 08/15/2016 BROCK SCHMIDT DIRECTOR [employer] Ot R05 COUGH 08/15/2016 BROCK SCHMIDT DIRECTOR [employer] Ot R06.2 WHEEZING 09/24/2016 ORENDER DO, NEELA S Ot R05 COUGH 09/24/2016 ORENDER DO, NEELA S Ot R06.2 WHEEZING 09/24/2016 ORENDER DO, NEELA S Ot R10.84 GENERALIZED ABDOMINAL PAIN 09/24/2016 BROCK SCHMIDT DIRECTOR [employer] Ot R05 COUGH 09/24/2016 BROCK SCHMIDT DIRECTOR [employer] Ot R06.2 WHEEZING 09/24/2016 FLAKITA DOHERTY DO [...] DO Ot I10 ESSENTIAL (PRIMARY) HYPERTENSION 10/15/2016 FLAKTIA DOHERTY DO Ot R06.00 DYSPNEA, UNSPECIFIED 11/21/2016 [...] R06.00 DYSPNEA, UNSPECIFIED 01/17/2017 BROCK SCHMIDT N DIRECTOR [employer] Ot R05 COUGH 01/17/2017 BROCK SCHMIDT DIRECTOR [employer] Ot R06.2 WHEEZING 01/17/2017 BROCK SCHMIDT DIRECTOR [employer] Ot R05 COUGH 01/17/2017 BRAYANBROCK DIRECTOR [employer] Ot R06.2 WHEEZING 02/22/2017 FLAKITA DOHERTY DO [...] Ot R06.00 DYSPNEA, UNSPECIFIED 06/12/2017 YANCI GARDUNO LABORER GOLF COURSE Ot 427.9 CARDIAC DYSRHYTHMIA NOS 06/12/2017 VANYANCI MCDONOUGH M LABORER GOLF COURSE Ot 786.07 WHEEZING 06/12/2017 VANYANCI MCDONOUGH M LABORER GOLF COURSE Ot 786.2 COUGH 06/12/2017 FABI EVERETT, ANDREI Jon Ot Z01.818 ENCOUNTER FOR OTHER PREPROCEDURAL EXAMIN 06/12/2017 HERMES HYMAN DOLINE S Ot R05 COUGH 06/12/2017 CRISTIANA ARTHUR, NEELA S Ot R06.2 WHEEZING 06/12/2017 NURISNDHAO ARTHUR NEELA S Ot R10.84 GENERALIZED ABDOMINAL PAIN 06/12/2017 RBOCK SCHMIDT DIRECTOR [employer] Ot R05 COUGH 06/12/2017 BROCK SCHMIDT DIRECTOR [employer] Ot R06.2 WHEEZING 06/12/2017 FLAKITA DOHERTY DO [...] DISORDERS OF RIGHT EAR 06/13/2017 SAMMY PAIZ DIRECTOR [employer] Ot M50.322 OTHER CERVICAL DISC DEGENERATION AT C5-C 06/13/2017 SAMMY PAIZ R DIRECTOR [employer] Ot R22.1 LOCALIZED SWELLING, MASS AND LUMP, NECK 06/13/2017 SAMMY PAIZ DIRECTOR [employer] Ot H93.8X1 OTHER SPECIFIED DISORDERS OF RIGHT EAR 06/13/2017 CHENCHO SAMMY R DIRECTOR [employer] Ot M50.322 OTHER CERVICAL DISC DEGENERATION AT C5-C 06/13/2017 SAMMY PAIZ R DIRECTOR [employer] Ot R22.1 LOCALIZED SWELLING, MASS AND LUMP, NECK 06/24/2017 NEELA HYMAN DO S Ot E11.9 TYPE 2 DIABETES MELLITUS WITHOUT COMPLIC 06/24/2017 ORENDER NEELA ARTHUR S Ot I65.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 07/23/2017 SAMMY PAIZ R DIRECTOR [employer] Ot H93.8X1 OTHER SPECIFIED DISORDERS OF RIGHT EAR 07/23/2017 SAMMY PAIZ R DIRECTOR [employer] Ot M50.322 OTHER CERVICAL DISC DEGENERATION AT C5-C 07/23/2017 SAMMY PAIZ R DIRECTOR [employer] Ot R22.1 LOCALIZED SWELLING, MASS AND LUMP, [...] NODES 08/05/2017 IVY NUNN MD, Ot Z79.82 DIRECTOR OF CHANNEL MARKETING (CURRENT) USE OF ASPIRIN 08/05/2017 IVY NUNN MD Ot Z79.84 DIRECTOR OF CHANNEL MARKETING (CURRENT) USE OF ORAL HYPOGLYC 08/05/2017 IVY [...] NODES 08/06/2017 IVY NUNN MD, Ot Z79.82 DIRECTOR OF CHANNEL MARKETING (CURRENT) USE OF ASPIRIN 08/06/2017 IVY NUNN MD Ot Z79.84 CORRECTION (CURRENT) USE OF ORAL HYPOGLYC 08/06/2017 IVY NUNN MD, Ot Z87.19 PERSONAL HISTORY OF OTHER DISEASES OF 08/06/2017 IVY NUNN MD, Ot Z87.820 PERSONAL HISTORY OF TRAUMATIC BRAIN INJU 08/06/2017 IVY NUNN MD, Ot Z87.891 PERSONAL HISTORY OF NICOTINE DEPENDENCE 08/06/2017 IVY NUNN MD, Ot Z88.5 ALLERGY STATUS TO NARCOTIC AGENT STATUS 08/08/2017 YANCI GARDUNO LABORER GOLF COURSE Ot 427.9 CARDIAC DYSRHYTHMIA NOS 08/08/2017 YANCI GARDUNO LABORER GOLF COURSE Ot 786.07 WHEEZING 08/08/2017 YANCI GARDUNO LABORER GOLF COURSE Ot 786.2 COUGH 08/08/2017 FABI EVERETT, ANDREI Jon Ot Z01.818 ENCOUNTER FOR OTHER PREPROCEDURAL EXAMIN 08/08/2017 NEELA HYMAN DO S Ot R05 COUGH 08/08/2017 NEELA HYMAN DO S Ot R06.2 WHEEZING 08/08/2017 NEELA HYMAN DO S Ot R10.84 GENERALIZED ABDOMINAL PAIN 08/08/2017 BROCK SCHMIDT Gema DIRECTOR [employer] Ot R05 COUGH 08/08/2017 BROCK SCHMIDT Gema DIRECTOR [employer] Ot R06.2 WHEEZING 08/08/2017 FLAKITA DOHERTY DO [...] Ot R06.00 DYSPNEA, UNSPECIFIED 08/08/2017 SAMMY PAIZ DIRECTOR [employer] Ot H93.8X1 OTHER SPECIFIED DISORDERS OF RIGHT EAR 08/08/2017 SAMMY PAIZ DIRECTOR [employer] Ot M50.322 OTHER CERVICAL DISC DEGENERATION AT C5-C 08/08/2017 SAMMY PAIZ DIRECTOR [employer] Ot R22.1 LOCALIZED SWELLING, MASS AND LUMP, [...] MD Ot R59.1 GENERALIZED ENLARGED LYMPH NODES 08/13/2017 MYLA CAMP MD Ot D17.1 BENIGN LIPOMATOUS NEOPLASM OF SKIN, SUBC 08/13/2017 MYLA CAMP MD Ot R59.1 GENERALIZED ENLARGED LYMPH NODES 08/13/2017 MYLA CAMP MD Ot Z01.818 ENCOUNTER FOR OTHER PREPROCEDURAL EXAMIN 08/14/2017 MYLA CAMP MD, Ot D17.1 BENIGN LIPOMATOUS NEOPLASM OF SKIN, SUBC 08/14/2017 MYLA CAMP MD, Ot R59.1 GENERALIZED ENLARGED LYMPH NODES 08/14/2017 MYLA CAMP MD, Ot Z01.818 ENCOUNTER FOR OTHER PREPROCEDURAL EXAMIN 08/14/2017 MYLA CAMP MD, Ot 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, UNSP, NODES OF ING RE 08/14/2017 MYLA CAMP MD Ot D17.1 BENIGN LIPOMATOUS NEOPLASM OF SKIN, SUBC 08/14/2017 MYLA CAMP MD Ot E11.9 TYPE 2 DIABETES MELLITUS WITHOUT COMPLIC 08/14/2017 MYLA CAMP MD Ot E78.00 PURE HYPERCHOLESTEROLEMIA, UNSPECIFIED 08/14/2017 MYLA CAMP MD, Ot F41.9 ANXIETY DISORDER, UNSPECIFIED 08/14/2017 MYLA CAMP MD Ot G47.33 OBSTRUCTIVE SLEEP APNEA (ADULT) (PEDIATR 08/14/2017 MYLA CAMP MD Ot I10 ESSENTIAL (PRIMARY) HYPERTENSION 08/14/2017 MYLA CAMP MD Ot J44.9 CHRONIC OBSTRUCTIVE PULMONARY DISEASE, U 08/14/2017 MYLA CAMP MD Ot Z79.82 CORRECTION (CURRENT) USE OF ASPIRIN 08/14/2017 MYLA CAMP MD Ot Z79.84 CORRECTION (CURRENT) USE OF ORAL HYPOGLYC 08/14/2017 MYLA CAMP MD, Ot Z79.899 OTHER DIRECTOR OF CHANNEL MARKETING (CURRENT) DRUG THERAPY 08/14/2017 MYLA CAMP MD, Ot Z87.891 PERSONAL HISTORY OF NICOTINE DEPENDENCE 08/21/2017 MYLA CAMP MD, Ot 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, UNSP, NODES OF ING RE 08/21/2017 MYLA CAMP MD Ot D17.1 BENIGN LIPOMATOUS NEOPLASM OF SKIN, SUBC 08/21/2017 MYLA CAMP MD, Ot E11.9 TYPE 2 DIABETES MELLITUS WITHOUT COMPLIC 08/21/2017 MYLA CAMP MD Ot E78.00 PURE HYPERCHOLESTEROLEMIA, UNSPECIFIED 08/21/2017 MYLA CAMP MD Ot F41.9 ANXIETY DISORDER, UNSPECIFIED 08/21/2017 MYLA CAMP MD Ot G47.33 OBSTRUCTIVE SLEEP APNEA (ADULT) (PEDIATR 08/21/2017 MYLA CAMP MD Ot I10 ESSENTIAL (PRIMARY) HYPERTENSION 08/21/2017 MYLA CAMP MD, Ot J44.9 CHRONIC OBSTRUCTIVE PULMONARY DISEASE, U 08/21/2017 MYLA CAMP MD, Ot Z79.82 CORRECTION (CURRENT) USE OF ASPIRIN 08/21/2017 MYLA CAMP MD Ot Z79.84 DIRECTOR OF CHANNEL MARKETING (CURRENT) USE OF ORAL HYPOGLYC 08/21/2017 MYLA CAMP MD, Ot Z79.899 OTHER DIRECTOR OF CHANNEL MARKETING (CURRENT) DRUG THERAPY 08/21/2017 MYLA CAMP MD, [...] NODES 09/07/2017 IVY NUNN MD, Ot Z79.82 DIRECTOR OF CHANNEL MARKETING (CURRENT) USE OF ASPIRIN 09/07/2017 IVY NUNN MD, Ot Z79.84 DIRECTOR OF CHANNEL MARKETING (CURRENT) USE OF ORAL HYPOGLYC 09/07/2017 IVY NUNN MD, Ot Z87.19 PERSONAL HISTORY OF OTHER DISEASES OF TH 09/07/2017 IVY NUNN MD, Ot Z87.820 PERSONAL HISTORY OF TRAUMATIC BRAIN INJU 09/07/2017 IVY NUNN MD, Ot Z87.891 PERSONAL HISTORY OF NICOTINE DEPENDENCE 09/07/2017 IVY NUNN MD, Ot Z88.5 ALLERGY STATUS TO NARCOTIC AGENT STATUS 09/17/2017 SAMMY PAIZ APRN Ot H93.8X1 OTHER SPECIFIED DISORDERS OF RIGHT EAR 09/17/2017 SAMMY PAIZ DIRECTOR [employer] Ot M50.322 OTHER CERVICAL DISC DEGENERATION AT C5-C 09/17/2017 МАРИНА PAIZJANINE Duarte DIRECTOR [employer] Ot R22.1 LOCALIZED SWELLING, MASS AND LUMP, NECK 09/17/2017 JONA HARTMANN MD Ot E11.9 TYPE 2 DIABETES MELLITUS WITHOUT COMPLIC 09/17/2017 JONA HARTMANN MD Ot E66.01 MORBID (SEVERE) OBESITY DUE TO EXCESS CA 09/17/2017 JONA HARTMANN MD Ot E78.5 HYPERLIPIDEMIA, UNSPECIFIED 09/17/2017 JONA HARTMANN MD Ot G47.33 OBSTRUCTIVE SLEEP APNEA (ADULT) (PEDIATR 09/17/2017 JONA HARTMANN MD Ot I10 ESSENTIAL (PRIMARY) HYPERTENSION 09/17/2017 JONA HARTMANN MD Ot J44.9 CHRONIC OBSTRUCTIVE PULMONARY DISEASE, U 09/17/2017 JNOA HARTMANN MD Ot R59.1 GENERALIZED ENLARGED LYMPH NODES 09/17/2017 JONA HARTMANN MD Ot Z68.41 BODY MASS INDEX (BMI) 40.0-44.9, ADULT 09/17/2017 JONA HARTMANN MD Ot Z79.82 DIRECTOR OF CHANNEL MARKETING (CURRENT) USE OF ASPIRIN 09/17/2017 JONA HARTMANN MD Ot Z79.84 DIRECTOR OF CHANNEL MARKETING (CURRENT) USE OF ORAL HYPOGLYC 09/17/2017 JONA HARTMANN MD Ot Z79.899 OTHER DIRECTOR OF CHANNEL MARKETING (CURRENT) DRUG THERAPY 09/17/2017 JONA HARTMANN MD Ot Z87.891 PERSONAL HISTORY OF NICOTINE DEPENDENCE 11/06/2017 JONA HARTMANN MD Ot C83.08 SMALL CELL B-CELL LYMPHOMA, LYMPH NODES 11/06/2017 JONA HARTMANN MD Ot E11.9 TYPE [...] ADULT 11/06/2017 JONA HARTMANN MD Ot Z79.82 DIRECTOR OF CHANNEL MARKETING (CURRENT) USE OF ASPIRIN 11/06/2017 JONA HARTMANN MD Ot Z79.84 DIRECTOR OF CHANNEL MARKETING (CURRENT) USE OF ORAL HYPOGLYC 11/06/2017 JONA HARTMANN MD Ot Z79.899 OTHER DIRECTOR OF CHANNEL MARKETING (CURRENT) DRUG THERAPY 11/06/2017 JONA HARTMANN MD [...] ADULT 11/07/2017 JONA HARTMANN MD Ot Z79.82 DIRECTOR OF CHANNEL MARKETING (CURRENT) USE OF ASPIRIN 11/07/2017 JONA HARTMANN MD Ot Z79.84 DIRECTOR OF CHANNEL MARKETING (CURRENT) USE OF ORAL HYPOGLYC 11/07/2017 JONA HARTMANN MD Ot Z79.899 OTHER DIRECTOR OF CHANNEL MARKETING (CURRENT) DRUG THERAPY 11/07/2017 JONA HARTMANN MD [...] INDEX (BMI) 40.0-44.9, ADULT 11/07/2017 JONA HARTMANN MD, Ot Z79.82 CORRECTION (CURRENT) USE OF ASPIRIN 11/07/2017 JONA HARTMANN MD, Ot Z79.84 CORRECTION (CURRENT) USE OF ORAL HYPOGLYC 11/07/2017 JONA HARTMANN MD, Ot Z79.899 OTHER DIRECTOR OF CHANNEL MARKETING (CURRENT) DRUG THERAPY 11/07/2017 JONA HARTMANN MD, Ot Z87.891 PERSONAL HISTORY OF NICOTINE DEPENDENCE 11/21/2017 NEELA HYMAN DO S Ot E11.9 TYPE 2 DIABETES MELLITUS WITHOUT COMPLIC 11/21/2017 SETH HYMAN DOQUELINE S Ot I65.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 12/10/2017 MYLA CAMP MD Ot Z01.818 ENCOUNTER FOR OTHER PREPROCEDURAL EXAMIN 12/10/2017 MYLA CAMP MD Ot Z01.818 ENCOUNTER FOR OTHER PREPROCEDURAL EXAMIN 12/10/2017 MYLA CAMP MD Ot Z01.818 ENCOUNTER FOR OTHER PREPROCEDURAL EXAMIN 12/11/2017 MYLA CAMP MD, Ot Z01.818 ENCOUNTER FOR OTHER PREPROCEDURAL EXAMIN 12/11/2017 YANCI GARDUNO Ot 427.9 CARDIAC DYSRHYTHMIA NOS 12/11/2017 YANCI GARDUNO LABORER GOLF COURSE Ot 786.07 WHEEZING 12/11/2017 YANCI GARDUNOP Ot 786.2 COUGH 12/11/2017 FABI EVERETT, ANDREI Jon Ot Z01.818 ENCOUNTER FOR OTHER PREPROCEDURAL EXAMIN 12/11/2017 NURISNDER SETH ARTHURNEELA S Ot R05 COUGH 12/11/2017 NURISNDER SETH ARTHURNEELA S Ot R06.2 WHEEZING 12/11/2017 NURISNDSETH BUI DOQUELINE S Ot R10.84 GENERALIZED ABDOMINAL PAIN 12/11/2017 BROCK SCHMIDT APRN Ot R05 COUGH 12/11/2017 BROCK SCHMIDT Gema CHRISTENSENN Ot R06.2 WHEEZING 12/11/2017 BESSY FLAKITA M Ot E11.9 TYPE 2 DIABETES MELLITUS WITHOUT COMPLIC 12/11/2017 BESSY ARTHUR FLAKITA M Ot I10 ESSENTIAL (PRIMARY) HYPERTENSION 12/11/2017 BESSY FLAKITA Nguyễn Ot R06.00 DYSPNEA, UNSPECIFIED 12/11/2017 BESSY ARTHUR FLAKITA Nguyễn Ot E11.9 TYPE 2 DIABETES MELLITUS WITHOUT COMPLIC 12/11/2017 BESSY ARTHUR FLAKITA Delma Ot I10 ESSENTIAL (PRIMARY) HYPERTENSION 12/11/2017 BESSY ARTHUR FLAKITA Nguyễn Ot R06.00 DYSPNEA, UNSPECIFIED 12/11/2017 SAMMY PAIZ APRN Ot H93.8X1 OTHER SPECIFIED DISORDERS OF RIGHT EAR 12/11/2017 SAMMY PAIZ APRN Ot M50.322 OTHER CERVICAL DISC DEGENERATION AT C5-C 12/11/2017 SAMMY PAIZ APRN Ot R22.1 LOCALIZED SWELLING, MASS AND LUMP, NECK 12/11/2017 NEELA HYMAN DO S Ot E11.9 TYPE 2 DIABETES MELLITUS WITHOUT COMPLIC 12/11/2017 NEELA HYMAN DO S Ot I65.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 12/11/2017 JONA HARTMANN MD Ot I51.7 CARDIOMEGALY 12/11/2017 JONA HARTMANN MD Ot K76.0 FATTY (CHANGE OF) LIVER, NOT ELSEWHERE C 12/11/2017 JONA HARTMANN MD Ot R59.1 GENERALIZED ENLARGED LYMPH NODES 12/11/2017 JONA HARTMNAN MD Ot E11.9 TYPE 2 DIABETES MELLITUS WITHOUT COMPLIC 12/11/2017 JONA HARTMANN MD Ot E66.01 MORBID (SEVERE) OBESITY DUE TO EXCESS CA 12/11/2017 JONA HARTMANN MD Ot E78.5 HYPERLIPIDEMIA, UNSPECIFIED 12/11/2017 JONA HARTMANN MD Ot G47.33 OBSTRUCTIVE SLEEP APNEA (ADULT) (PEDIATR 12/11/2017 JONA HARTMANN MD Ot I10 ESSENTIAL (PRIMARY) HYPERTENSION 12/11/2017 JONA HARTMANN MD, Ot J44.9 CHRONIC OBSTRUCTIVE PULMONARY DISEASE, U 12/11/2017 JONA HARTMANN MD Ot R59.1 GENERALIZED ENLARGED LYMPH NODES 12/11/2017 JONA HARTMANN MD Ot Z68.41 BODY MASS INDEX (BMI) 40.0-44.9, ADULT 12/11/2017 JONA HARTMANN MD, Ot Z79.82 CORRECTION (CURRENT) USE OF ASPIRIN 12/11/2017 JONA HARTMANN MD, Ot Z79.84 CORRECTION (CURRENT) USE OF ORAL HYPOGLYC 12/11/2017 JONA HARTMANN MD, Ot Z79.899 OTHER DIRECTOR OF CHANNEL MARKETING (CURRENT) DRUG THERAPY 12/11/2017 JONA HARTMANN MD, Ot Z87.891 PERSONAL HISTORY OF NICOTINE DEPENDENCE 12/17/2017 MYLA CAMP MD, Ot 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, EXTRNOD A 12/17/2017 MYLA CAMP MD, Ot 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, UNSP, NODES OF ING RE 12/17/2017 MYLA CAMP MD, Ot E11.9 TYPE 2 DIABETES MELLITUS WITHOUT COMPLIC 12/17/2017 MYLA CAMP MD, Ot G47.33 OBSTRUCTIVE SLEEP APNEA (ADULT) (PEDIATR 12/17/2017 MYLA CAMP MD, Ot I10 ESSENTIAL (PRIMARY) HYPERTENSION 12/17/2017 MYLA CAMP MD, Ot J44.9 CHRONIC OBSTRUCTIVE PULMONARY DISEASE, U 12/17/2017 MYLA CAMP MD, Ot Z79.82 CORRECTION (CURRENT) USE OF ASPIRIN 12/17/2017 MYLA CAMP MD, Ot Z79.84 CORRECTION (CURRENT) USE OF ORAL HYPOGLYC 12/17/2017 MYLA CAMP MD, Ot Z79.899 OTHER CORRECTION (CURRENT) DRUG THERAPY 12/17/2017 MYLA CAMP MD, Ot Z87.891 PERSONAL HISTORY OF NICOTINE DEPENDENCE Procedures Code Description Performed By Performed On [...] blood basophil count (count/volume) 0.1 10*3/uL 0.0-0.1 [id number] - 06/12/17 10:42 Serum or plasma urea [...] plasma potassium measurement (moles/volume) 3.9 mmol/L 3.6-5.0 Methicillin resistant Staphylococcus aureus (MRSA) screening culture - 09:05 Methicillin resistant Staphylococcus aureus (MRSA) screening culture NEG NRG Capillary blood glucose measurement by glucometer (mass/volume) - 12/11/17 09: 29 Capillary blood glucose measurement by glucometer (mass/volume) 122 mg/dL 70-110 Encounters ACCT No. Visit Date/Time Discharge Status Pt. Type Provider Facility Loc./Unit Complaint [id number] 12/18/2017 16:15:00 12/18/2017 23:59:59 CLS Preadmit JONA HARTMANN MD [facility] RAD LYMPHOMA,SMALL LYMPOCYTCI [id number] 12/18/2017 16:12:00 12/18/2017 23:59:59 CLS Preadmit JONA HARTMANN MD [facility] RAD LYMPHOMA,SMALL LYMPHOCYCTIC [id number] 12/18/2017 14:38:00 12/18/2017 23:59:59 CLS Outpatient JONA HARTMANN MD [facility] ONC [id number] 12/11/2017 08:50:00 12/11/2017 16:20:00 DIS Outpatient MYLA CAMP MD [facility] SDC UPPER BACK LESION [id number] 12/10/2017 12:00:00 12/10/2017 12:22:00 DIS Outpatient MYLA CAMP MD [facility] PREOP UPPER BACK LESION [id number] 09/18/2017 14:44:00 11/06/2017 00:01:00 DIS Outpatient JONA HARTMANN MD [facility] ONC [id number] 08/14/2017 07:44:00 08/14/2017 14:55:00 DIS Outpatient MYLA CAMP MD [facility] SDC LYMPHADENOPATHY, LIPOMA LEFT FLANK [id number] 08/13/2017 11:36:00 08/13/2017 13:12:00 DIS Outpatient MYLA CAMP MD [facility] PREOP LYMPHADENOPATHY, LIPOMA LEFT FLANK [id number] 08/11/2017 11:31:00 08/11/2017 23:59:59 CLS Outpatient JONA HARTMANN MD [facility] RAD R59.1 LUMPHADENOPATHY [id number] 08/04/2017 21:13:00 08/05/2017 00:10:00 DIS Emergency IVY NUNN MD [facility] ER L SIDE PAIN/SOB [id number] 06/23/2017 11:31:00 06/23/2017 23:59:59 CLS Outpatient NELEA HYMAN DO [facility] RAD I65.21 [id number] 06/12/2017 10:33:00 06/12/2017 23:59:59 CLS Outpatient SAMMY PAIZ APRN [facility] RAD RIGHT NECK SWELLING [id number] 05/27/2017 10:15:00 05/27/2017 23:59:59 CLS Preadmit FLAKITA DOHERTY DO [facility] PULM SOB [id number] 05/13/2017 09:00:00 05/26/2017 00:01:00 DIS Outpatient FLAKITA DOHERTY DO [facility] PULM SOB [id number] 02/20/2017 09:00:00 02/22/2017 00:01:00 DIS Outpatient FLAKITA DOHERTY DO [facility] PULM SOB [id number] 01/09/2017 09:00:00 01/12/2017 00:01:00 DIS Outpatient FLAKITA DOHERTY DO [facility] PULM SOB [id number] 10/10/2016 14:00:00 10/10/2016 14:39:00 DIS Outpatient FLAKITA DOHERTY DO [facility] SLEEP KENIA, OBESITY, WAKING SOA [id number] 09/11/2016 12:54:00 09/11/2016 23:59:59 CLS Outpatient BESSY FLAKITA Nguyễn [facility] RT SOB [id number] 06/13/2016 15:52:00 06/13/2016 23:59:59 CLS Outpatient BROCK SCHMIDT APRN [facility] RAD COUGH,WHEEZING, CONGESTION [id number] 05/25/2016 08:26:00 05/25/2016 10:55:00 DIS Emergency MICHELLE FONTENOT MD [facility] ER CONGESTION/BREAKING OUT IN A SWEAT [id number] 04/22/2016 11:08:00 04/22/2016 23:59:59 CLS Outpatient NEELA HYMAN DO [facility] RAD L FLANK ABD PAIN [id number] 08/14/2015 14:25:00 08/14/2015 23:59:59 CLS Outpatient NEELA HYMAN DO [facility] RAD COUGH,WHEEZING [id number] 03/29/2015 10:22:00 03/29/2015 14:55:00 DIS Outpatient ANDREI DUNLAP MD [facility] SDC LT.CARPEL TUNNEL [id number] 03/28/2015 13:45:00 03/28/2015 23:59:59 CLS Outpatient ANDREI DUNLAP MD [facility] PREOP LT CARPEL TUNNEL [id number] 09/21/2014 12:39:00 09/21/2014 23:59:59 CLS Outpatient YANCI GARDUNO [facility] CARD COUGHING WHEEZING [id number] 08/15/2016 09:39:00 Document Registration [id number] 08/15/2016 09:39:00 Document Registration [id number] 08/15/2016 09:39:00 Document Registration [id number] 08/15/2016 09:39:00 Document Registration [id number] 09/22/2014 08:31:00 Document Registration [id number] 10/21/2008 08:05:00 Document Registration [id number] 09/16/2005 20:16:00 Document Registration [id number] 09/03/2005 15:15:00 Document Registration 03/17/18 11/24/2017 16:21:06 11/24/2017 23:59:59 [facility] Outpatient Neela Hyman [id number] 09/22/2014 04:47:46 ACT Document Registration
== END 2017-12-26 12:35 | disposition home or self-care (01) ==
LOC: SDC 08:33 → RAD 08:33 → EDSTATUS 10:45 → SDC 12:35 → RAD 12:35
PROVIDERS: ATTEND Internal Medicine Hematology & Oncology
DX: C83.39 Diffuse large B-cell lymphoma, extranodal and solid organ sites (principal); C83.08 Small cell B-cell lymphoma, lymph nodes of multiple sites; J44.9 Chronic obstructive pulmonary disease, unspecified; G47.33 Obstructive sleep apnea (adult) (pediatric); E11.9 Type 2 diabetes mellitus without complications; I10 Essential (primary) hypertension; Z87.891 Personal history of nicotine dependence; Z79.82 Long term (current) use of aspirin; Z79.84 Long term (current) use of oral hypoglycemic drugs
CPT/HCPCS: 36415; 38222; 77012; 85007; 85025; 85027; 85045; 85610; 85730

== ENCOUNTER 2018-02-20 10:28 | Outpatient (RCR) | payer OTHER, MEDICARE ==
[~2018-02-20 10:28] MED LIST changes: +METF-399 PO; -METF10002 PO
== END 2018-02-23 10:33 | disposition home or self-care (01) ==
LOC: ONC 10:28
PROVIDERS: ATTEND Internal Medicine Hematology & Oncology
DX: Z51.0 Encounter for antineoplastic radiation therapy (principal); C83.39 Diffuse large B-cell lymphoma, extranodal and solid organ sites; C85.95 Non-Hodgkin lymphoma, unspecified, lymph nodes of inguinal region and lower limb; J44.9 Chronic obstructive pulmonary disease, unspecified; I10 Essential (primary) hypertension; E11.9 Type 2 diabetes mellitus without complications; E78.5 Hyperlipidemia, unspecified; G47.33 Obstructive sleep apnea (adult) (pediatric); E66.01 Morbid (severe) obesity due to excess calories; Z68.41 Body mass index [BMI] 40.0-44.9, adult; Z79.84 Long term (current) use of oral hypoglycemic drugs; Z79.82 Long term (current) use of aspirin; Z79.899 Other long term (current) drug therapy; Z87.891 Personal history of nicotine dependence
CPT/HCPCS: 77290; 77300; 77334; 77336; 99204; 99213

== ENCOUNTER 2018-04-02 14:25 | Outpatient (RCR) | payer OTHER, MEDICARE ==
[2018-04-02 16:05] LABS: BASOPHILS % (AUTO) 1 % (0-10); EOSINOPHILS # (AUTO) 0.1 10^3/uL (0.0-0.3); EOSINOPHILS % (AUTO) 2 % (0-10); HEMATOCRIT 36 % (40-54); HEMOGLOBIN 12.1 G/DL (13.3-17.7); LYMPHOCYTES # (AUTO) 2.3 X 10^3 (1.0-4.0); LYMPHOCYTES % (AUTO) 26 % (12-44); MEAN CORPUSCULAR HEMOGLOBIN 28 PG (25-34); MEAN CORPUSCULAR HGB CONC 33 G/DL (32-36); MEAN CORPUSCULAR VOLUME 84 FL (80-99); MEAN PLATELET VOLUME 9.6 FL (7.4-10.4); MONOCYTES % (AUTO) 12 % (0-12); NEUTROPHILS # (AUTO) 5.3 X 10^3 (1.8-7.8); NEUTROPHILS % (AUTO) 60 % (42-75); PLATELET COUNT 300 10^3/uL (130-400); RED BLOOD COUNT 4.33 10^6/uL (4.35-5.85); RED CELL DISTRIBUTION WIDTH 17.3 % (10.0-14.5); WHITE BLOOD COUNT 8.7 10^3/uL (4.3-11.0)
[2018-04-02 16:42] LABS: ALANINE AMINOTRANSFERASE 33 U/L (0-55); ALBUMIN 4.2 GM/DL (3.2-4.5); ALKALINE PHOSPHATASE 30 U/L (40-136); BILIRUBIN,TOTAL 0.4 MG/DL (0.1-1.0); BUN/CREATININE RATIO 21; CALCIUM 9.6 MG/DL (8.5-10.1); CARBON DIOXIDE 25 MMOL/L (21-32); CHLORIDE 103 MMOL/L (98-107); CREATININE SERUM 0.86 MG/DL (0.60-1.30); GFR ESTIMATED > 60; GLUCOSE 108 MG/DL (70-105); POTASSIUM 3.3 MMOL/L (3.6-5.0); SODIUM 142 MMOL/L (135-145); TOTAL PROTEIN 6.7 GM/DL (6.4-8.2)
== END 2018-05-24 | disposition home or self-care (01) ==
LOC: ONC 14:25
PROVIDERS: ATTEND Internal Medicine Hematology & Oncology
DX: Z51.0 Encounter for antineoplastic radiation therapy (principal); C83.39 Diffuse large B-cell lymphoma, extranodal and solid organ sites; C85.95 Non-Hodgkin lymphoma, unspecified, lymph nodes of inguinal region and lower limb; J44.9 Chronic obstructive pulmonary disease, unspecified; I10 Essential (primary) hypertension; E11.9 Type 2 diabetes mellitus without complications; E78.5 Hyperlipidemia, unspecified; G47.33 Obstructive sleep apnea (adult) (pediatric); E66.01 Morbid (severe) obesity due to excess calories; Z68.41 Body mass index [BMI] 40.0-44.9, adult; Z79.84 Long term (current) use of oral hypoglycemic drugs; Z79.82 Long term (current) use of aspirin; Z79.899 Other long term (current) drug therapy; Z87.891 Personal history of nicotine dependence
CPT/HCPCS: 36415; 80053; 83615; 85025; 88368; 88369; 99213

== ENCOUNTER → 2018-07-16 | Outpatient (CLI) | payer OTHER, MEDICARE ==
--- NOTE | 2018-07-16 13:07 | Diagnostic Imaging Report ---
EXAMINATION: PA chest at 12:23 p.m. INDICATION: Cough. FINDINGS: There is shallow inspiration when compared to the prior exam of 06/13/2016. Allowing for this technical factor, the heart is enlarged but stable when compared to the previous study. However in the interval since the prior exam, a prominent area of consolidation has developed along the periphery of the right upper lobe. Most likely, this is due to pneumonia/atelectasis. 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 This abnormal density does not have the appearance of a neoplastic process. Even so, I would recommend that a follow-up exam be obtained to assure that complete clearing occurs. The lungs are otherwise generally clear. The mediastinum is not widened. The osseous structures are intact. There is severe degenerative disease of the right glenohumeral joint. IMPRESSION: 1. In the interval since the prior study, a new area of consolidation has developed in the right upper lobe. Most likely, this is due to pneumonia/atelectasis. Recommendations as above. 2. There is no acute cardiopulmonary abnormality noted otherwise. Dictated by: Dictated on workstation # [id number]
== END ==
LOC: RAD 12:00
PROVIDERS: ATTEND Family Medicine
DX: C85.80 Other specified types of non-Hodgkin lymphoma, unspecified site (principal); J18.1 Lobar pneumonia, unspecified organism; M19.011 Primary osteoarthritis, right shoulder; I51.7 Cardiomegaly
CPT/HCPCS: 71045

== ENCOUNTER → 2018-08-11 | Outpatient (CLI) | payer OTHER, MEDICARE ==
--- NOTE | 2018-08-11 10:28 | Diagnostic Imaging Report ---
INDICATION: Cough, shortness of breath. COMPARISON: 07/16/2018. FINDINGS: Frontal and lateral views of the chest demonstrate cardiac enlargement with central vascular congestion. There is continued opacity in the right upper lobe. There is no pneumothorax or effusion. The osseous structures are age-appropriate. IMPRESSION: 1. Cardiac enlargement with slight central vascular congestion. 2. Essentially unchanged opacity in the right upper lobe. 3. The report was called to Amrita/disciplinary hearing officer of Dr. Hyman by LISSET@ 10:28AM. Dictated by: Dictated on workstation # [id number]
== END ==
LOC: RAD 09:36
PROVIDERS: ATTEND Family Medicine
DX: I51.7 Cardiomegaly (principal); R09.89 Other specified symptoms and signs involving the circulatory and respiratory systems; R91.8 Other nonspecific abnormal finding of lung field
CPT/HCPCS: 71046

== ENCOUNTER → 2018-08-20 | Outpatient (CLI) | payer OTHER, MEDICARE | LOC: CARD 11:45 | PROVIDERS: ATTEND Family Medicine | DX: R06.00 Dyspnea, unspecified (principal) | CPT/HCPCS: 93306 ==

== ENCOUNTER → 2018-09-02 | Outpatient (CLI) | payer OTHER, MEDICARE ==
--- NOTE | 2018-09-02 17:24 | Diagnostic Imaging Report ---
INDICATION: Pneumonia. COMPARISON STUDY: Chest radiograph from August 11. FINDINGS: Portable view of the chest demonstrates a persistent round infiltrate in the right upper lobe. Cardiomegaly is present. The mediastinum is a little widened, which is most likely vasculature. Given the persistent round infiltrate in the right upper lobe, a CT scan would be helpful for further evaluation. IMPRESSION: There is persistent round infiltrate in the right upper lobe. This has not changed for almost a month. Recommend CT scan for further evaluation. Dictated by: Dictated on workstation # [id number]
== END ==
LOC: RAD 16:48
PROVIDERS: ATTEND Nurse Practitioner Family
DX: J18.9 Pneumonia, unspecified organism (principal)
CPT/HCPCS: 71046

== ENCOUNTER → 2018-09-07 | Outpatient (CLI) | payer OTHER, MEDICARE ==
--- NOTE | 2018-09-07 12:54 | Diagnostic Imaging Report ---
PROCEDURE: CT chest without contrast. TECHNIQUE: Multiple contiguous axial images were obtained through the chest without the use of intravenous contrast. Auto Exposure Controls were utilized during the CT exam to meet ALARA standards for radiation dose reduction. INDICATION: Shortness of air and wheezing with right upper lobe infiltrate. COMPARISON: Correlation is made with chest radiograph from 09/02/[address] from 12/22/2017. FINDINGS: Mildly prominent lymph nodes in the axillae bilaterally appear similar to prior exam. Hilar and mediastinal evaluation is limited without intravenous contrast. There is some mild soft tissue fullness in the right paratracheal location measuring 18 mm in transverse diameter. This may in part be secondary to the azygos vein. Again, evaluation is limited without intravenous contrast. There are coronary arterial calcifications present. There is no pericardial or pleural fluid identified. There is an area of consolidation versus mass in the right upper lobe accounting for the chest radiographic abnormality. This measures approximately 5.4 x 4.4 cm. The remainder of the lungs appear to be clear. Upper abdomen is unremarkable. IMPRESSION: Right upper lobe triangular-shaped opacification. This is most suggestive of a right upper lobe consolidated pneumonia with likely mild reactive lymphadenopathy in the mediastinum. However, close followup is recommended with repeat CT chest in approximately six weeks after course of therapy to confirm clearing. No other significant abnormality is detected. Dictated by: Dictated on workstation # [id number]
== END ==
LOC: RAD 12:21
PROVIDERS: ATTEND Family Medicine
DX: R91.8 Other nonspecific abnormal finding of lung field (principal); R06.02 Shortness of breath
CPT/HCPCS: 71250

== ENCOUNTER 2018-10-28 11:15 | Outpatient (RCR) | payer OTHER, MEDICARE ==
[~2018-10-28 11:15] MED LIST changes: -DULO60CA58 PO; +DULO60CA59 PO
[2018-10-28 11:35] LABS: BASOPHILS # (AUTO) 0.1 10^3/uL (0.0-0.1); BASOPHILS % (AUTO) 0 % (0-10); EOSINOPHILS # (AUTO) 0.1 10^3/uL (0.0-0.3); EOSINOPHILS % (AUTO) 1 % (0-10); HEMATOCRIT 40 % (40-54); HEMOGLOBIN 13.4 G/DL (13.3-17.7); LYMPHOCYTES # (AUTO) 4.6 X 10^3 (1.0-4.0); LYMPHOCYTES % (AUTO) 38 % (12-44); MEAN CORPUSCULAR HEMOGLOBIN 28 PG (25-34); MEAN CORPUSCULAR HGB CONC 33 G/DL (32-36); MEAN CORPUSCULAR VOLUME 83 FL (80-99); MEAN PLATELET VOLUME 9.5 FL (7.4-10.4); MONOCYTES % (AUTO) 9 % (0-12); NEUTROPHILS # (AUTO) 6.2 X 10^3 (1.8-7.8); NEUTROPHILS % (AUTO) 52 % (42-75); PLATELET COUNT 342 10^3/uL (130-400); RED CELL DISTRIBUTION WIDTH 18.1 % (10.0-14.5)
[2018-10-28 11:54] LABS: CARBON DIOXIDE 29 MMOL/L (21-32); CHLORIDE 103 MMOL/L (98-107); POTASSIUM 3.6 MMOL/L (3.6-5.0); SODIUM 142 MMOL/L (135-145)
[2018-10-28 11:55] LABS: ALANINE AMINOTRANSFERASE 32 U/L (0-55); ALBUMIN 4.4 GM/DL (3.2-4.5); ALKALINE PHOSPHATASE 43 U/L (40-136); BILIRUBIN,TOTAL 0.4 MG/DL (0.1-1.0); BUN/CREATININE RATIO 14; CALCIUM 9.8 MG/DL (8.5-10.1); CREATININE SERUM 0.93 MG/DL (0.60-1.30); GFR ESTIMATED > 60; GLUCOSE 113 MG/DL (70-105)
== END 2019-01-26 | disposition home or self-care (01) ==
LOC: ONC 11:15
PROVIDERS: ATTEND Internal Medicine Hematology & Oncology
DX: C83.39 Diffuse large B-cell lymphoma, extranodal and solid organ sites (principal); C85.95 Non-Hodgkin lymphoma, unspecified, lymph nodes of inguinal region and lower limb; J44.9 Chronic obstructive pulmonary disease, unspecified; I10 Essential (primary) hypertension; E78.5 Hyperlipidemia, unspecified; G47.33 Obstructive sleep apnea (adult) (pediatric); Z79.84 Long term (current) use of oral hypoglycemic drugs; Z79.82 Long term (current) use of aspirin; Z79.899 Other long term (current) drug therapy; Z87.891 Personal history of nicotine dependence
CPT/HCPCS: 36415; 80053; 83615; 85025; 99213

== ENCOUNTER → 2018-11-20 | Outpatient (CLI) | payer OTHER, MEDICARE ==
[~2018-11-20] MED LIST changes: +DULO60CA58 PO; -DULO60CA59 PO
--- NOTE | 2018-11-20 15:30 | Diagnostic Imaging Report ---
PROCEDURE: CT chest without contrast. TECHNIQUE: Multiple contiguous axial images were obtained through the chest without the use of intravenous contrast. Auto Exposure Controls were utilized during the CT exam to meet ALARA standards for radiation dose reduction. INDICATION: Pneumonia, dyspnea, and shortness of breath. COMPARISON: 09/07/2018. FINDINGS: There is a somewhat triangular configured peripheral opacity in the parenchyma of the right upper lobe that laterally abuts the pleura and appears somewhat more nodular and more dense than on prior but measures only minimally larger at 6.0 x 4.4 cm, previously 5.4 x 4.4 cm. Mediastinal lymph nodes are again noted mildly increased in size and number and there is ipsilateral right axillary lymphadenopathy having likely increased. If neoplastic recurrence in this patient with history of lymphoma is suspected, consider metabolic PET/CT as further evaluation. No new focal pulmonary opacity is found. There is no effusion or pneumothorax. No suspicious soft tissue or osseous chest wall lesion. The visualized upper abdomen demonstrates normal-sized nonfocal unenhanced spleen with no pathological appearing upper abdominal lymph nodes. IMPRESSION: Peripheral wedge configured opacity in the right upper lobe persists, somewhat more lobular and more dense than on prior, minimally larger with mild increased mediastinal adenopathy and right axillary adenopathy. Metabolic PET/CT recommended as further evaluation given the new findings when compared to the previous PET performed on 12/23/2017. Dictated by: Dictated on workstation # [id number]
== END ==
LOC: RAD 13:13
PROVIDERS: ATTEND Family Medicine
DX: J18.9 Pneumonia, unspecified organism (principal); R59.0 Localized enlarged lymph nodes
CPT/HCPCS: 71250

== ENCOUNTER → 2018-12-08 | Outpatient (CLI) | payer OTHER, MEDICARE ==
--- NOTE | 2018-12-08 13:14 | Diagnostic Imaging Report ---
INDICATION: Right lung mass with cough and dyspneas. The patient has history of lymphoma. TECHNIQUE: Serum blood glucose level at the time of injection was 157 mg/dL. Patient was administered 11.8 mCi F-18 FDG intravenously in the right hand and whole body and PET imaging was performed. In addition, noncontrast CT was performed for attenuation correction and anatomic correlation. COMPARISON: Correlation is made with prior PET/CT from 12/23/[address] chest from 11/20/2018. FINDINGS: Symmetric activity in the brain is noted. The neck soft tissues are unremarkable. Intense hypermetabolism within the mass in the right upper lobe noted on recent CT chest is noted. SUV max values reach 33. No definite hypermetabolism within the mediastinum or liset is seen, however. No other pulmonary parenchymal regions of hypermetabolism are identified. Abdomen and pelvis demonstrate physiologic activity within the GI and tracts. No suspicious hypermetabolism in the lower extremities is identified. IMPRESSION: Hypermetabolic right upper lobe mass correlating with the mass noted on CT chest from 11/20/2018. No mediastinal or hilar lymphadenopathy is detected. Dictated by: Dictated on workstation # [id number]
== END ==
LOC: RAD 07:45
PROVIDERS: ATTEND Family Medicine
DX: C85.90 Non-Hodgkin lymphoma, unspecified, unspecified site (principal); R91.8 Other nonspecific abnormal finding of lung field; R05 Cough

== ENCOUNTER 2018-12-18 07:09 | Outpatient (CLI) | payer OTHER, MEDICARE ==
[2018-12-18] VITALS (14 sets, daily range): BP systolic 113–180; BP diastolic 58–114
[~2018-12-18] VITALS: Ht 182.9 cm; Wt 146.5 kg
--- NOTE | 2018-12-18 07:15 | NUR ---
PT.'S O2 SATS RUNNING A LITTLE LOW ON ROOM AIR ONLY 89%-92% AT THE HIGHEST. THIS NURSE WILL MONITOR CLOSELY.
[2018-12-18 07:43] LABS: HEMOGLOBIN 11.9 G/DL (13.3-17.7); MEAN PLATELET VOLUME 9.3 FL (7.4-10.4); RED CELL DISTRIBUTION WIDTH 17.2 % (10.0-14.5); WHITE BLOOD COUNT 14.2 10^3/uL (4.3-11.0)
[2018-12-18 08:00] LABS: INR 0.9 (0.8-1.4); PROTHROMBIN TIME PATIENT 12.9 SEC (12.2-14.7)
[2018-12-18] MEDS ORDERED: NS IV 1000 ML 1,000 ML IV STA (08:00)
[2018-12-18] MEDS ORDERED: LIDOCAINE 1% INJ 20 ML 20 ML VIAL INJ ONE (08:00)
[2018-12-18] MEDS ORDERED: fentaNYL INJECTION 100 MCG/2 ML AMP IVP ONE (08:00)
[2018-12-18] MEDS ORDERED: MIDAZOLAM 2 MG/2 ML (VERSED) VIAL IVP ONE (08:00)
--- NOTE | 2018-12-18 09:45 | NUR ---
PT.'S SATS ARE RUNNING 88% ON ROOM AIR AT THIS TIME, THIS NURSE PUT PT. ON 3 LITERS NASAL CANNULA AT THIS TIME. PT. ALSO HAS SHORTNESS OF BREATH WITH EXERTION.
[2018-12-18] MEDS ORDERED: HYDROcodone/APAP 5 MG/325 MG (LORTAB) TAB PO PRN (10:00)
--- NOTE | 2018-12-18 11:30 | NUR ---
PT. STATES HE FEELS BETTER ON THE OXYGEN
--- NOTE | 2018-12-18 16:02 | Diagnostic Imaging Report ---
INDICATION: Lung mass. TECHNIQUE AND FINDINGS: After explaining the risks, benefits and alternatives of the procedure to the patient, written consent was obtained. Patient was placed on the table in the left lateral decubitus position. Patient's skin was prepped and draped utilizing maximal sterile barrier technique. Conscious sedation was performed with 1 mg of Versed and 50 mcg of fentanyl. This was done under constant nursing supervision. A 20-gauge Temno needle was advanced into the lung lesion under CT guidance. Three core biopsy specimens were obtained. The needle was removed and adequate hemostasis was obtained. Patient tolerated the procedure well and left the department in stable condition. IMPRESSION: Successful CT-guided lung biopsy. Dictated by: Dictated on workstation # [id number]
--- NOTE | 2018-12-18 17:17 | Diagnostic Imaging Report ---
INDICATION: Post right lung biopsy. TECHNIQUE: Single view chest at 11:08 AM. CORRELATION STUDY: 09/02/2018 FINDINGS: Imaging obtained in expiration. Density about the lateral aspect of the right upper lobe is again demonstrated. No significant pneumothorax. Additional consolidation about the perihilar and basilar regions, right greater than left. Heart size is enlarged. The mediastinum is abnormally prominent and widened. Rather markedly advanced asymmetric degenerative changes of the right shoulder. IMPRESSION: 1. No appreciable pneumothorax post lung biopsy. 2. Extensive consolidated appearance about the right upper lobe again demonstrated. 3. Cardiac enlargement with abnormal widened mediastinum concerning for potential underlying lymphadenopathy. Dictated by: Dictated on workstation # [id number]
== END 2018-12-18 13:20 | disposition home or self-care (01) ==
LOC: RAD 07:09
PROVIDERS: ATTEND Family Medicine
DX: J18.1 Lobar pneumonia, unspecified organism (principal); R91.8 Other nonspecific abnormal finding of lung field
CPT/HCPCS: 36415; 71045; 77012; 82962; 85027; 85610; 85730; 99156

== ENCOUNTER 2019-02-25 11:53 | Outpatient (CLI) | payer OTHER, MEDICARE ==
[~2019-02-25] VITALS: Ht 187.9 cm; Wt 143.1 kg
[~2019-02-25 11:53] MED LIST changes: -DULO60CA58 PO; +DULO60CA59 PO
[2019-02-25] MEDS ORDERED: RT-ALBUINH IH (12:47)
== END 2019-02-25 12:49 | disposition home or self-care (01) ==
LOC: PREOP 11:53
PROVIDERS: ATTEND Surgery
DX: Z01.818 Encounter for other preprocedural examination (principal)

== ENCOUNTER 2019-02-26 07:19 | Day surgery (SDC) | payer OTHER, MEDICARE ==
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
[2019-02-26] VITALS (11 sets, daily range): BP systolic 90–147; BP diastolic 58–90
[~2019-02-26] VITALS: Ht 187.9 cm; Wt 143.1 kg
[~2019-02-26 07:19] MED LIST changes: +RT-ALBUINH IH
[2019-02-26] MEDS ORDERED: RT-ALBUTEROL SULF 2.5 MG/3 ML PRE-MIX VIAL ONE (07:55)
[2019-02-26] MEDS ORDERED: RT-ALBUTEROL SULF 2.5 MG/3 ML PRE-MIX VIAL INH ONE (08:00)
[2019-02-26] MEDS ORDERED: HEParin (CENTRAL IV FLUSH) 500 UNIT/5 ML SYR ONE (08:20)
[2019-02-26] MEDS ORDERED: BUP/EPI 0.25% 1:200,000 (MARCAINE) 10 ML VIAL IJ ONE (08:21)
[2019-02-26] MEDS ORDERED: 0.9% SODIUM CHLORIDE PF INJ 20 ML VIAL ONE (08:21)
[2019-02-26] MEDS ORDERED: LACTATED RINGERS 1,000 ML IV PRN (08:42)
[2019-02-26] MEDS ORDERED: ceFAZolin 2 GM/50 ML NS 50 ML IV ONE (08:45)
[2019-02-26] MEDS ORDERED: MIDAZOLAM 2 MG/2 ML (VERSED) VIAL ONE (08:52)
[2019-02-26] MEDS ORDERED: PROPOFOL INJECTION 50 ML IV ONE (08:55)
[2019-02-26] MEDS ORDERED: CATHETER FLUSH 10 ML SYR IV PRN (09:00)
--- NOTE | 2019-02-26 09:11 | Progress Note-Pre Operative ---
Pre-Operative Progress Note H&P Reviewed The H&P was reviewed, patient examined and no changes noted. Date Seen by Provider: Feb 26, 2019 Time Seen by Provider: 09:00 Date H&P Reviewed: Feb 26, 2019 Time H&P Reviewed: 09:00 Pre-Operative Diagnosis: large b-cell lymphoma MYLA CAMP MD Feb 26, 2019 09:11
--- NOTE | 2019-02-26 09:13 | Discharge Inst-Surgical ---
D/C Lap Instructions-ZOË Follow Up PRN Activity as tolerated ok to access and use port. Regular Diet Symptoms to Report: Fever over 101 degree F, Nausea/Vomiting Infection Signs and Symptoms to report: Increased redness, Foul odor of wound, Increased drainage Bathing instructions: May shower Operative Area Clean/Dry; Keep incision clean/dry If any problems/questions: Contact your physician or go to Emergency Room MYLA CAMP MD Feb 26, 2019 09:13
[2019-02-26] MEDS ORDERED: ACETAMINOPHEN 325 MG TABLET PO PRN (09:15)
[2019-02-26] MEDS ORDERED: HYDROcodone/APAP 5 MG/325 MG (LORTAB) TAB PO ONE (09:15)
[2019-02-26] MEDS ORDERED: morphine INJ 10 MG/ML 1ML (SYR OR VIAL) IVP PRN ×2 (09:15)
[2019-02-26] MEDS ORDERED: ONDANSETRON 4 MG/2 ML (SDV) Z0FRAN IVP PRN ×2 (09:15→10:15)
[2019-02-26] MEDS ORDERED: KETAMINE/NaCl 50 MG/5 ML SYRINGE ONE (09:34)
--- NOTE | 2019-02-26 09:54 | Progress Note-Post Operative ---
Post-Operative Progess Note Surgeon (s)/Binder Sorter (s) Surgeon MYLA CAMP MD Binder Sorter: none Pre-Operative Diagnosis large b-cell lymphoma Post-Operative Diagnosis same Procedure & Operative Findings Date of Procedure 02/26/19 Procedure Performed/Findings left subclavian groshong implantable catheter under flouroscopy. Anesthesia Type MAC with local Estimated Blood Loss Estimated blood loss (mL): minimal Specimens/Packing Specimens Removed none MYLA CAMP MD Feb 26, 2019 09:54
[2019-02-26] MEDS ORDERED: morphine INJ 10 MG/ML 1ML (SYR OR VIAL) IVP ONE (10:15)
[2019-02-26] MEDS ORDERED: fentaNYL INJECTION 100 MCG/2 ML AMP IVP ONE (10:15)
--- NOTE | 2019-02-26 10:51 | Diagnostic Imaging Report ---
INDICATION: Status post Groshong catheter placement. COMPARISON: 12/18/2018 FINDINGS: Single frontal radiographic of the chest is obtained and demonstrates interval placement of left-sided subclavian central venous catheter. Central tip is obscured. Catheter does extend at least into the SVC. Cardiac silhouette remains enlarged. Pulmonary vasculature is within normal limits. Lungs continue to show large masslike opacity involving the right upper lobe. No large effusion or pneumothorax is seen on either side. IMPRESSION: 1. Left subclavian central venous catheter as above. 2. Cardiomegaly. 3. Redemonstration of masslike opacity of the right upper lobe. Dictated by: Dictated on workstation # [id number]
--- NOTE | 2019-02-26 12:32 | Anesthesia-General Post-Op ---
MAC Patient Condition Mental Status/LOC: Same as Preop Cardiovascular: Satisfactory Nausea/Vomiting: Absent Respiratory: Satisfactory Pain: Controlled Complications: Absent Post Op Complications Complications None Follow Up Care/Instructions Patient Instructions None needed. Anesthesiology Discharge Order Discharge Order Patient is doing well, no complaints, stable vital signs, no apparent adverse anesthesia problems. No complications reported per nursing. JERRICA MUNGUIA CRNA Feb 26, 2019 12:32
--- NOTE | 2019-02-26 13:44 | Diagnostic Imaging Report ---
Indication: GROSHONG catheter placement. COMPARISON: None Total fluoroscopy time: 4 seconds Total lumbar fluoroscopic images saved: 1 FINDINGS: Single intraoperative image intensifier view of the chest was obtained during GROSHONG catheter placement. The central tip of the catheter appears to terminate near the junction of the innominate veins. Evaluation for pneumothorax is suboptimal given fluoroscopic modality. Please note, interpreting radiologist was not present during the procedure. IMPRESSION: 1. Fluoroscopic guidance provided during GROSHONG catheter placement. Dictated by: Dictated on workstation # [id number]
--- NOTE | 2019-02-26 15:00 | OPERATIVE REPORT ---
DATE OF SERVICE: 02/26/2019 ATTENDING PRIMARY CARE PHYSICIAN: Neela Hyman DO PREOPERATIVE DIAGNOSIS: Large B cell lymphoma. POSTOPERATIVE DIAGNOSIS: Large B cell lymphoma. PROCEDURE: Placement of left subclavian Groshong implantable catheter under fluoroscopy. SURGEON: Myla Camp MD ANESTHESIA: Monitored anesthesia care with local. ESTIMATED BLOOD LOSS: Minimal. FINDINGS: Catheter tip at superior vena cava -- right atrial junction. DISPOSITION: The patient tolerated the procedure well. INDICATIONS: The patient is a 68-year-old male known to us. He developed flank pain and was seen in the Emergency Department where he was found to have lymphadenopathy in the pelvis. On 08/14/2017, he underwent excisional biopsy of the right inguinal lymph node, which was consistent with a small lymphocytic lymphoma, which is a form of non-Hodgkin's lymphoma; however, less aggressive variety. He was then referred over to oncology where the recommendation was to proceed with close monitoring. He then went on vacation and was found to have a large red raised lesion of his back and underwent incision and drainage; however, the lesion grew significantly larger in size and was biopsied consistent with a lymphoma. He underwent excision of the lesion as well as a split-thickness skin graft. He did develop a cough and thought to have pneumonia and underwent a CT scan, which did show a right upper lobe lesion and a PET scan was then performed, which was consistent with hypermetabolic activity. He then underwent a CT-guided biopsy, which came back consistent with large B cell lymphoma. The treatment strategy at this point is to proceed with IV chemotherapy. DESCRIPTION OF PROCEDURE: The patient was brought to the operating room, laid supine on the table. After adequate IV pain and sedative medications and monitored anesthesia care, the chest and neck were prepped and draped in standard surgical fashion. A 0.5% Marcaine was then used to anesthetize the left subclavian region. The left subclavian vein was then cannulated withdrawing the venous blood. The guidewire was then inserted under fluoroscopy. A skin incision was then made, and the dilator and sheath were then placed over the guidewire and the venous dilator and guidewire were then removed. The Groshong implantable catheter was then placed until the catheter tip was at the superior vena cava -- right atrial junction. The sheath was then removed. The inner wire within the catheter was then removed and the catheter cut down to size and port placed onto the catheter. The skin incision was then extended laterally and a plane was created between the subcutaneous tissue and the anterior pectoralis fascia using blunt dissection as well as electrocautery. The port was then placed into the chest reservoir and sutured to the anterior pectoralis fascia using interrupted 3-0 Vicryl sutures. Skin was closed using 4-0 Monocryl running subcuticular suture. Wound was then cleaned and covered with Dermabond. The patient tolerated the procedure well. We will get a post-procedure chest x-ray once confirmation of placement of the port may be accessed and used at any time. Job ID: [id number] DocumentID: [id number] Dictated Date: 02/26/2019 10:00:06 Lap Machine Tender Date: 02/26/2019 14:59:03 Dictated By: MYLA CAMP MD
== END 2019-02-26 12:00 | disposition home or self-care (01) ==
LOC: SDC 07:19
PROVIDERS: ATTEND Surgery
DX: C85.10 Unspecified B-cell lymphoma, unspecified site (principal); E11.9 Type 2 diabetes mellitus without complications; E78.00 Pure hypercholesterolemia, unspecified; I10 Essential (primary) hypertension; F32.9 Major depressive disorder, single episode, unspecified; Z79.4 Long term (current) use of insulin; Z79.82 Long term (current) use of aspirin; Z79.899 Other long term (current) drug therapy; Z87.891 Personal history of nicotine dependence; Z88.5 Allergy status to narcotic agent
CPT/HCPCS: 71045; 82962; 87081; 94640

== ENCOUNTER → 2019-03-04 | Outpatient (CLI) | payer OTHER, MEDICARE | LOC: CARD 08:15 | PROVIDERS: ATTEND Internal Medicine Hematology & Oncology | DX: C83.39 Diffuse large B-cell lymphoma, extranodal and solid organ sites (principal) | CPT/HCPCS: 93306 ==

== ENCOUNTER 2019-05-12 08:40 | Outpatient (RCR) | payer OTHER, MEDICARE ==
[2019-02-18 15:14] LABS: BASOPHILS # (AUTO) 0.1 10^3/uL (0.0-0.1); BASOPHILS % (AUTO) 1 % (0-10); EOSINOPHILS # (AUTO) 0.2 10^3/uL (0.0-0.3); EOSINOPHILS % (AUTO) 1 % (0-10); HEMATOCRIT 37 % (40-54); HEMOGLOBIN 11.7 G/DL (13.3-17.7); LYMPHOCYTES # (AUTO) 6.1 X 10^3 (1.0-4.0); LYMPHOCYTES % (AUTO) 41 % (12-44); MEAN CORPUSCULAR HEMOGLOBIN 25 PG (25-34); MEAN CORPUSCULAR HGB CONC 32 G/DL (32-36); MEAN CORPUSCULAR VOLUME 80 FL (80-99); MEAN PLATELET VOLUME 9.1 FL (7.4-10.4); MONOCYTES # (AUTO) 1.4 X 10^3 (0.0-1.0); MONOCYTES % (AUTO) 9 % (0-12); NEUTROPHILS # (AUTO) 7.1 X 10^3 (1.8-7.8); NEUTROPHILS % (AUTO) 48 % (42-75); PLATELET COUNT 372 10^3/uL (130-400); WHITE BLOOD COUNT 14.8 10^3/uL (4.3-11.0)
[2019-02-18 15:36] LABS: ALANINE AMINOTRANSFERASE 23 U/L (0-55); ALBUMIN 4.2 GM/DL (3.2-4.5); ALKALINE PHOSPHATASE 41 U/L (40-136); BILIRUBIN,TOTAL 0.4 MG/DL (0.1-1.0); BUN/CREATININE RATIO 15; CALCIUM 9.3 MG/DL (8.5-10.1); CARBON DIOXIDE 29 MMOL/L (21-32); CHLORIDE 104 MMOL/L (98-107); CREATININE SERUM 0.89 MG/DL (0.60-1.30); GFR ESTIMATED > 60; GLUCOSE 124 MG/DL (70-105); POTASSIUM 3.6 MMOL/L (3.6-5.0); SODIUM 140 MMOL/L (135-145); TOTAL PROTEIN 6.6 GM/DL (6.4-8.2)
[2019-03-05 21:28] LABS: HEPATITIS C ANTIBODY C Non-Reactive (Non-Reactive)
[2019-03-10 09:37] LABS: BASOPHILS # (AUTO) 0.1 10^3/uL (0.0-0.1); BASOPHILS % (AUTO) 0 % (0-10); EOSINOPHILS # (AUTO) 0.3 10^3/uL (0.0-0.3); EOSINOPHILS % (AUTO) 2 % (0-10); HEMATOCRIT 36 % (40-54); HEMOGLOBIN 11.2 G/DL (13.3-17.7); LYMPHOCYTES # (AUTO) 6.7 X 10^3 (1.0-4.0); LYMPHOCYTES % (AUTO) 41 % (12-44); MEAN CORPUSCULAR HEMOGLOBIN 25 PG (25-34); MEAN CORPUSCULAR HGB CONC 31 G/DL (32-36); MEAN CORPUSCULAR VOLUME 80 FL (80-99); MEAN PLATELET VOLUME 9.2 FL (7.4-10.4); MONOCYTES # (AUTO) 1.3 X 10^3 (0.0-1.0); MONOCYTES % (AUTO) 8 % (0-12); NEUTROPHILS % (AUTO) 49 % (42-75); PLATELET COUNT 412 10^3/uL (130-400); RED CELL DISTRIBUTION WIDTH 19.6 % (10.0-14.5); WHITE BLOOD COUNT 16.3 10^3/uL (4.3-11.0)
[2019-03-10 10:15] LABS: ALANINE AMINOTRANSFERASE 28 U/L (0-55); ALBUMIN 4.1 GM/DL (3.2-4.5); ALKALINE PHOSPHATASE 43 U/L (40-136); BILIRUBIN,TOTAL 0.5 MG/DL (0.1-1.0); CALCIUM 9.2 MG/DL (8.5-10.1); CARBON DIOXIDE 27 MMOL/L (21-32); CHLORIDE 104 MMOL/L (98-107); CREATININE SERUM 0.87 MG/DL (0.60-1.30); GFR ESTIMATED > 60; GLUCOSE 128 MG/DL (70-105); POTASSIUM 3.6 MMOL/L (3.6-5.0); SODIUM 142 MMOL/L (135-145); TOTAL PROTEIN 6.7 GM/DL (6.4-8.2)
[2019-03-10 10:30] LABS: BUN/CREATININE RATIO 15
[2019-03-24 15:18] LABS: BASOPHILS # (AUTO) 0.1 10^3/uL (0.0-0.1); BASOPHILS % (AUTO) 1 % (0-10); EOSINOPHILS # (AUTO) 0.1 10^3/uL (0.0-0.3); EOSINOPHILS % (AUTO) 1 % (0-10); HEMATOCRIT 36 % (40-54); HEMOGLOBIN 11.1 G/DL (13.3-17.7); LYMPHOCYTES # (AUTO) 6.9 X 10^3 (1.0-4.0); LYMPHOCYTES % (AUTO) 37 % (12-44); MEAN CORPUSCULAR HEMOGLOBIN 26 PG (25-34); MEAN CORPUSCULAR HGB CONC 31 G/DL (32-36); MEAN CORPUSCULAR VOLUME 82 FL (80-99); MEAN PLATELET VOLUME 9.7 FL (7.4-10.4); MONOCYTES # (AUTO) 1.3 X 10^3 (0.0-1.0); MONOCYTES % (AUTO) 7 % (0-12); NEUTROPHILS # (AUTO) 10.4 X 10^3 (1.8-7.8); NEUTROPHILS % (AUTO) 55 % (42-75); PLATELET COUNT 341 10^3/uL (130-400); RED CELL DISTRIBUTION WIDTH 21.4 % (10.0-14.5); WHITE BLOOD COUNT 18.9 10^3/uL (4.3-11.0)
[2019-03-24 15:30] LABS: CALCIUM 9.1 MG/DL (8.5-10.1); CREATININE SERUM 1.24 MG/DL (0.60-1.30); POTASSIUM 3.5 MMOL/L (3.6-5.0)
[2019-03-31 09:16] LABS: BASOPHILS % (AUTO) 0 % (0-10); EOSINOPHILS # (AUTO) 0.2 10^3/uL (0.0-0.3); EOSINOPHILS % (AUTO) 1 % (0-10); HEMATOCRIT 34 % (40-54); HEMOGLOBIN 10.6 G/DL (13.3-17.7); LYMPHOCYTES % (AUTO) 35 % (12-44); MEAN CORPUSCULAR HEMOGLOBIN 26 PG (25-34); MEAN CORPUSCULAR HGB CONC 31 G/DL (32-36); MEAN CORPUSCULAR VOLUME 83 FL (80-99); MEAN PLATELET VOLUME 9.2 FL (7.4-10.4); MONOCYTES % (AUTO) 7 % (0-12); NEUTROPHILS % (AUTO) 56 % (42-75); PLATELET COUNT 445 10^3/uL (130-400); RED CELL DISTRIBUTION WIDTH 20.8 % (10.0-14.5); WHITE BLOOD COUNT 14.3 10^3/uL (4.3-11.0)
[2019-03-31 09:33] LABS: ALANINE AMINOTRANSFERASE 17 U/L (0-55); ALBUMIN 3.8 GM/DL (3.2-4.5); ALKALINE PHOSPHATASE 39 U/L (40-136); BILIRUBIN,TOTAL 0.3 MG/DL (0.1-1.0); BUN/CREATININE RATIO 16; CALCIUM 9.1 MG/DL (8.5-10.1); CARBON DIOXIDE 26 MMOL/L (21-32); CHLORIDE 104 MMOL/L (98-107); CREATININE SERUM 1.14 MG/DL (0.60-1.30); GFR ESTIMATED > 60; GLUCOSE 152 MG/DL (70-105); POTASSIUM 3.9 MMOL/L (3.6-5.0); SODIUM 143 MMOL/L (135-145); TOTAL PROTEIN 6.4 GM/DL (6.4-8.2)
[2019-04-07 08:58] LABS: BASOPHILS # (AUTO) 0.1 10^3/uL (0.0-0.1); BASOPHILS % (AUTO) 1 % (0-10); EOSINOPHILS # (AUTO) 0.4 10^3/uL (0.0-0.3); EOSINOPHILS % (AUTO) 2 % (0-10); HEMATOCRIT 35 % (40-54); LYMPHOCYTES # (AUTO) 6.7 X 10^3 (1.0-4.0); LYMPHOCYTES % (AUTO) 33 % (12-44); MEAN CORPUSCULAR HEMOGLOBIN 25 PG (25-34); MEAN CORPUSCULAR HGB CONC 31 G/DL (32-36); MEAN CORPUSCULAR VOLUME 81 FL (80-99); MEAN PLATELET VOLUME 9.5 FL (7.4-10.4); MONOCYTES # (AUTO) 1.8 X 10^3 (0.0-1.0); MONOCYTES % (AUTO) 9 % (0-12); NEUTROPHILS # (AUTO) 11.1 X 10^3 (1.8-7.8); NEUTROPHILS % (AUTO) 55 % (42-75); PLATELET COUNT 289 10^3/uL (130-400); RED CELL DISTRIBUTION WIDTH 20.9 % (10.0-14.5); WHITE BLOOD COUNT 20.1 10^3/uL (4.3-11.0)
[2019-04-07 09:14] LABS: BUN/CREATININE RATIO 15; CALCIUM 9.3 MG/DL (8.5-10.1); CARBON DIOXIDE 26 MMOL/L (21-32); CHLORIDE 102 MMOL/L (98-107); GFR ESTIMATED > 60; GLUCOSE 169 MG/DL (70-105); POTASSIUM 3.9 MMOL/L (3.6-5.0); SODIUM 140 MMOL/L (135-145)
[2019-04-14 10:13] LABS: BASOPHILS # (AUTO) 0.1 10^3/uL (0.0-0.1); BASOPHILS % (AUTO) 1 % (0-10); EOSINOPHILS # (AUTO) 0.2 10^3/uL (0.0-0.3); EOSINOPHILS % (AUTO) 1 % (0-10); HEMATOCRIT 35 % (40-54); HEMOGLOBIN 10.8 G/DL (13.3-17.7); LYMPHOCYTES # (AUTO) 3.4 X 10^3 (1.0-4.0); LYMPHOCYTES % (AUTO) 28 % (12-44); MEAN CORPUSCULAR HGB CONC 31 G/DL (32-36); MEAN CORPUSCULAR VOLUME 82 FL (80-99); MEAN PLATELET VOLUME 9.8 FL (7.4-10.4); MONOCYTES # (AUTO) 0.9 X 10^3 (0.0-1.0); MONOCYTES % (AUTO) 8 % (0-12); NEUTROPHILS # (AUTO) 7.4 X 10^3 (1.8-7.8); NEUTROPHILS % (AUTO) 62 % (42-75); PLATELET COUNT 272 10^3/uL (130-400); RED CELL DISTRIBUTION WIDTH 21.2 % (10.0-14.5)
[2019-04-14 10:16] LABS: MEAN CORPUSCULAR HEMOGLOBIN 25 PG (25-34)
[2019-04-14 10:28] LABS: BUN/CREATININE RATIO 15; CALCIUM 9.4 MG/DL (8.5-10.1); CARBON DIOXIDE 26 MMOL/L (21-32); CHLORIDE 104 MMOL/L (98-107); CREATININE SERUM 1.03 MG/DL (0.60-1.30); GFR ESTIMATED > 60; GLUCOSE 188 MG/DL (70-105); POTASSIUM 3.9 MMOL/L (3.6-5.0); SODIUM 140 MMOL/L (135-145)
[2019-04-21 09:21] LABS: BASOPHILS # (AUTO) 0.1 10^3/uL (0.0-0.1); BASOPHILS % (AUTO) 1 % (0-10); EOSINOPHILS # (AUTO) 0.1 10^3/uL (0.0-0.3); EOSINOPHILS % (AUTO) 1 % (0-10); HEMATOCRIT 33 % (40-54); HEMOGLOBIN 10.4 G/DL (13.3-17.7); LYMPHOCYTES # (AUTO) 1.6 X 10^3 (1.0-4.0); LYMPHOCYTES % (AUTO) 19 % (12-44); MEAN CORPUSCULAR HEMOGLOBIN 26 PG (25-34); MEAN CORPUSCULAR HGB CONC 31 G/DL (32-36); MEAN CORPUSCULAR VOLUME 82 FL (80-99); MEAN PLATELET VOLUME 9.3 FL (7.4-10.4); MONOCYTES # (AUTO) 1.1 X 10^3 (0.0-1.0); MONOCYTES % (AUTO) 12 % (0-12); NEUTROPHILS # (AUTO) 5.8 X 10^3 (1.8-7.8); NEUTROPHILS % (AUTO) 67 % (42-75); PLATELET COUNT 437 10^3/uL (130-400); RED CELL DISTRIBUTION WIDTH 20.8 % (10.0-14.5); WHITE BLOOD COUNT 8.7 10^3/uL (4.3-11.0)
[2019-04-21 09:39] LABS: ALANINE AMINOTRANSFERASE 14 U/L (0-55); ALBUMIN 4.1 GM/DL (3.2-4.5); ALKALINE PHOSPHATASE 47 U/L (40-136); BILIRUBIN,TOTAL 0.4 MG/DL (0.1-1.0); BUN/CREATININE RATIO 13; CALCIUM 9.3 MG/DL (8.5-10.1); CARBON DIOXIDE 26 MMOL/L (21-32); CHLORIDE 103 MMOL/L (98-107); CREATININE SERUM 0.98 MG/DL (0.60-1.30); GFR ESTIMATED > 60; GLUCOSE 188 MG/DL (70-105); POTASSIUM 3.8 MMOL/L (3.6-5.0); SODIUM 141 MMOL/L (135-145); TOTAL PROTEIN 6.5 GM/DL (6.4-8.2)
[2019-04-28 10:21] LABS: BASOPHILS # (AUTO) 0.1 10^3/uL (0.0-0.1); BASOPHILS % (AUTO) 2 % (0-10); EOSINOPHILS # (AUTO) 0.3 10^3/uL (0.0-0.3); EOSINOPHILS % (AUTO) 10 % (0-10); HEMATOCRIT 30 % (40-54); HEMOGLOBIN 9.4 G/DL (13.3-17.7); LYMPHOCYTES # (AUTO) 0.7 X 10^3 (1.0-4.0); LYMPHOCYTES % (AUTO) 22 % (12-44); MEAN CORPUSCULAR HEMOGLOBIN 26 PG (25-34); MEAN CORPUSCULAR HGB CONC 32 G/DL (32-36); MEAN CORPUSCULAR VOLUME 81 FL (80-99); MONOCYTES # (AUTO) 0.5 X 10^3 (0.0-1.0); MONOCYTES % (AUTO) 15 % (0-12); NEUTROPHILS # (AUTO) 1.6 X 10^3 (1.8-7.8); NEUTROPHILS % (AUTO) 51 % (42-75); PLATELET COUNT 246 10^3/uL (130-400); RED CELL DISTRIBUTION WIDTH 20.4 % (10.0-14.5); WHITE BLOOD COUNT 3.2 10^3/uL (4.3-11.0)
[2019-04-28 10:36] LABS: BUN/CREATININE RATIO 14; CALCIUM 9.1 MG/DL (8.5-10.1); CARBON DIOXIDE 25 MMOL/L (21-32); CHLORIDE 104 MMOL/L (98-107); CREATININE SERUM 0.84 MG/DL (0.60-1.30); GFR ESTIMATED > 60; GLUCOSE 181 MG/DL (70-105); POTASSIUM 3.7 MMOL/L (3.6-5.0); SODIUM 141 MMOL/L (135-145)
[2019-05-05 09:49] LABS: BASOPHILS # (AUTO) 0.1 10^3/uL (0.0-0.1); BASOPHILS % (AUTO) 1 % (0-10); EOSINOPHILS # (AUTO) 0.1 10^3/uL (0.0-0.3); EOSINOPHILS % (AUTO) 1 % (0-10); HEMATOCRIT 37 % (40-54); HEMOGLOBIN 11.9 G/DL (13.3-17.7); LYMPHOCYTES # (AUTO) 2.2 X 10^3 (1.0-4.0); LYMPHOCYTES % (AUTO) 23 % (12-44); MEAN CORPUSCULAR HEMOGLOBIN 26 PG (25-34); MEAN CORPUSCULAR HGB CONC 33 G/DL (32-36); MEAN CORPUSCULAR VOLUME 81 FL (80-99); MEAN PLATELET VOLUME 9.7 FL (7.4-10.4); MONOCYTES # (AUTO) 1.4 X 10^3 (0.0-1.0); MONOCYTES % (AUTO) 14 % (0-12); NEUTROPHILS # (AUTO) 5.9 X 10^3 (1.8-7.8); NEUTROPHILS % (AUTO) 61 % (42-75); PLATELET COUNT 290 10^3/uL (130-400); RED CELL DISTRIBUTION WIDTH 21.8 % (10.0-14.5); WHITE BLOOD COUNT 9.8 10^3/uL (4.3-11.0)
[2019-05-05 10:09] LABS: BUN/CREATININE RATIO 10; CALCIUM 9.6 MG/DL (8.5-10.1); CARBON DIOXIDE 22 MMOL/L (21-32); CHLORIDE 104 MMOL/L (98-107); CREATININE SERUM 1.18 MG/DL (0.60-1.30); GFR ESTIMATED > 60; GLUCOSE 158 MG/DL (70-105); POTASSIUM 4.2 MMOL/L (3.6-5.0); SODIUM 140 MMOL/L (135-145)
[~2019-05-12] VITALS: Ht 188 cm; Wt 146.1 kg
[~2019-05-12 08:40] MED LIST changes: +ACETAMINOPHEN 325 MG TAB (TYLENOL) CANCER CTR PO PRN; +ALBU2.5V4 NEB; +AMOX-358 PO; +CYCLOPHOSPHAMIDE INJECTION 1,000 MG, CYCLOPHOSPHAMIDE INJECTION 100 MG in NS (IVPB) CAN... IV SCH; +CYCLOPHOSPHAMIDE IV SCH; +DOXORUBICIN HCL IV SCH; +FLUT1BLS3 IH; +FOSAPREPITANT DIMEGLUMINE 150 MG in NS (IVPB) CANCER CENTER ONLY 150 ML IV SCH; +FURO40TA4 PO; +HYDR25TA4 PO; +MAGN400C PO; +METF500T8 PO; -MONT10TA24; +MONT10TA24 PO; +NS IV 1000 ML (CANCER CTR) IV SCH; +NS IV SCH; +OLME40TA12 PO; +ONDA8TAB12 PO; +PALONOSETRON HCL 0.25 MG, DEXAMETHASONE INJECTION 10 MG in NS (IVPB) CANCER CENTER 50 ML IV SCH; +PANT20TA3 PO; +PEGFILGRASTIM 6 MG/0.6 ML ONPRO KIT SQ SCH; +PEGFILGRASTIM 6 MG/0.6ML NEULASTA SC SCH; +POTA20TA15 PO; +PRD20T PO; +diphenhydrAMINE 25 MG TAB (BENADRYL) CANCER CENTER PO SCH; +diphenhydrAMINE 50 MG/ML INJ (CANCER CENTER) IV PRN; +riTUXimab 1,000 MG in NS (IVPB) CANCER CENTER 233 ML IV SCH; +vinCRIStine SULFATE 1 MG in NS (IVPB) CANCER CENTER 50 ML IV SCH; +vinCRIStine SULFATE 2 MG in NS (IVPB) CANCER CENTER 50 ML IV SCH
[2019-05-12 09:17] LABS: BASOPHILS # (AUTO) 0.1 10^3/uL (0.0-0.1); BASOPHILS % (AUTO) 1 % (0-10); EOSINOPHILS # (AUTO) 0.1 10^3/uL (0.0-0.3); EOSINOPHILS % (AUTO) 1 % (0-10); HEMATOCRIT 34 % (40-54); HEMOGLOBIN 10.6 G/DL (13.3-17.7); LYMPHOCYTES # (AUTO) 1.2 X 10^3 (1.0-4.0); LYMPHOCYTES % (AUTO) 13 % (12-44); MEAN CORPUSCULAR HEMOGLOBIN 26 PG (25-34); MEAN CORPUSCULAR HGB CONC 32 G/DL (32-36); MEAN CORPUSCULAR VOLUME 83 FL (80-99); MEAN PLATELET VOLUME 9.4 FL (7.4-10.4); MONOCYTES # (AUTO) 1.2 X 10^3 (0.0-1.0); MONOCYTES % (AUTO) 14 % (0-12); NEUTROPHILS # (AUTO) 6.4 X 10^3 (1.8-7.8); NEUTROPHILS % (AUTO) 71 % (42-75); PLATELET COUNT 535 10^3/uL (130-400); RED CELL DISTRIBUTION WIDTH 21.1 % (10.0-14.5)
[2019-05-12 09:34] LABS: ALANINE AMINOTRANSFERASE 15 U/L (0-55); ALBUMIN 4.2 GM/DL (3.2-4.5); ALKALINE PHOSPHATASE 41 U/L (40-136); BILIRUBIN,TOTAL 0.3 MG/DL (0.1-1.0); BUN/CREATININE RATIO 14; CALCIUM 9.3 MG/DL (8.5-10.1); CARBON DIOXIDE 25 MMOL/L (21-32); CHLORIDE 105 MMOL/L (98-107); CREATININE SERUM 0.93 MG/DL (0.60-1.30); GFR ESTIMATED > 60; GLUCOSE 151 MG/DL (70-105); POTASSIUM 4.1 MMOL/L (3.6-5.0); SODIUM 143 MMOL/L (135-145); TOTAL PROTEIN 6.5 GM/DL (6.4-8.2)
== END 2019-05-19 | disposition home or self-care (01) ==
LOC: ONC 08:40
PROVIDERS: ATTEND Internal Medicine Hematology & Oncology
DX: Z51.11 Encounter for antineoplastic chemotherapy (principal); C83.39 Diffuse large B-cell lymphoma, extranodal and solid organ sites; C85.95 Non-Hodgkin lymphoma, unspecified, lymph nodes of inguinal region and lower limb; J44.9 Chronic obstructive pulmonary disease, unspecified; I10 Essential (primary) hypertension; E78.5 Hyperlipidemia, unspecified; G47.33 Obstructive sleep apnea (adult) (pediatric); Z79.84 Long term (current) use of oral hypoglycemic drugs; Z79.82 Long term (current) use of aspirin; Z79.899 Other long term (current) drug therapy; Z87.891 Personal history of nicotine dependence
CPT/HCPCS: 36415; 36591; 80048; 80053; 80074; 83615; 85025; 96367; 96372; 96375; 96377; 96411; 96413; 96415; 96417; 99213; J2505; J9312

== ENCOUNTER → 2019-06-03 | Outpatient (CLI) | payer OTHER, MEDICARE ==
[~2019-06-03] MED LIST changes: -ACETAMINOPHEN 325 MG TAB (TYLENOL) CANCER CTR PO PRN; -CYCLOPHOSPHAMIDE INJECTION 1,000 MG, CYCLOPHOSPHAMIDE INJECTION 100 MG in NS (IVPB) CAN... IV SCH; -CYCLOPHOSPHAMIDE IV SCH; -DOXORUBICIN HCL IV SCH; -FOSAPREPITANT DIMEGLUMINE 150 MG in NS (IVPB) CANCER CENTER ONLY 150 ML IV SCH; +HOLD METFORMIN - RECEIVED CONTRAST 20 ML VIAL IV SCH; +IOHEXOL 350 MG/ML 100 ML (OMNIPAQUE 350) VIAL IV ONE; +NS 100 ML (IVPB) BAG IV ONE; -NS IV 1000 ML (CANCER CTR) IV SCH; -NS IV SCH; -PALONOSETRON HCL 0.25 MG, DEXAMETHASONE INJECTION 10 MG in NS (IVPB) CANCER CENTER 50 ML IV SCH; -PEGFILGRASTIM 6 MG/0.6 ML ONPRO KIT SQ SCH; -PEGFILGRASTIM 6 MG/0.6ML NEULASTA SC SCH; -diphenhydrAMINE 25 MG TAB (BENADRYL) CANCER CENTER PO SCH; -diphenhydrAMINE 50 MG/ML INJ (CANCER CENTER) IV PRN; -riTUXimab 1,000 MG in NS (IVPB) CANCER CENTER 233 ML IV SCH; -vinCRIStine SULFATE 1 MG in NS (IVPB) CANCER CENTER 50 ML IV SCH; -vinCRIStine SULFATE 2 MG in NS (IVPB) CANCER CENTER 50 ML IV SCH
--- NOTE | 2019-06-03 14:40 | Diagnostic Imaging Report ---
EXAMINATION: CT Chest with intravenous contrast. TECHNIQUE: Multiple contiguous axial images were obtained through the chest after the uneventful administration of intravenous contrast. All CT scans use one or more of the following dose optimizing techniques: automated exposure control, MA and/or KvP adjustment based on a patient size and exam type, or iterative reconstruction. HISTORY: COUGH,DIFFUSE LARGE B CELL LYMPHOMA COMPARISON: 03/14/2019. FINDINGS: There is an area of atelectasis or scarring in the right upper lobe and a previously seen area of consolidation. Lungs are imaged in an expiratory phase with a general hazy appearance to the lungs. No pneumothorax is seen. No pleural effusion. No suspicious pulmonary nodules. Right ventricle and pulmonary artery are dilated concerning for pulmonary hypertension. There are moderate coronary artery calcifications. No pericardial effusion. Aorta is normal in caliber. There is no axillary or supraclavicular lymphadenopathy. There is no mediastinal lymphadenopathy. Limited views of the upper abdomen show hepatic steatosis. There are no suspicious osseous lesions. IMPRESSION: 1. Atelectasis or scarring in the right upper lobe, previously there is consolidation in this area and this is improved. 2. Dilated right ventricle and pulmonary artery concerning for pulmonary hypertension. Dictated by: Dictated on workstation # [id number]
== END ==
LOC: RAD 13:42
PROVIDERS: ATTEND Internal Medicine Hematology & Oncology
DX: C83.39 Diffuse large B-cell lymphoma, extranodal and solid organ sites (principal); I28.1 Aneurysm of pulmonary artery; J18.1 Lobar pneumonia, unspecified organism; I51.7 Cardiomegaly
CPT/HCPCS: 71260

== ENCOUNTER 2019-06-22 09:30 | Outpatient (RCR) | payer OTHER, MEDICARE ==
[2019-04-13 09:30] VITALS: BP 130/78
[2019-04-13 10:25] VITALS: BP 122/80
[2019-04-20 09:10] VITALS: BP 130/68
[2019-04-20 09:50] VITALS: BP 132/74
[2019-05-04 09:15] VITALS: BP 132/68
[2019-05-04 10:30] VITALS: BP 150/60
[2019-05-06 09:10] VITALS: BP 122/68
[2019-05-06 10:20] VITALS: BP 118/70
[2019-05-20 08:30] VITALS: BP 152/82
[2019-05-20 09:29] VITALS: BP 140/60
[2019-05-27 08:30] VITALS: BP 150/88
[2019-05-27 09:55] VITALS: BP 140/60
[2019-06-01 09:00] VITALS: BP 160/60
[2019-06-01 10:12] VITALS: BP 125/60
[2019-06-08 09:00] VITALS: BP 120/74
[2019-06-08 10:00] VITALS: BP 110/58
[2019-06-10 09:00] VITALS: BP 160/40
[2019-06-10 09:50] VITALS: BP 130/80
[2019-06-15 09:00] VITALS: BP 150/40
[2019-06-15 10:34] VITALS: BP 118/70
[2019-06-22 09:30] VITALS: BP 140/50
[~2019-06-22 09:30] MED LIST changes: -HOLD METFORMIN - RECEIVED CONTRAST 20 ML VIAL IV SCH; -IBUP-2055 PO; +IBUP-2473 PO; -IOHEXOL 350 MG/ML 100 ML (OMNIPAQUE 350) VIAL IV ONE; +METF500T19 PO; -METF500T8 PO; -METO-395 PO; +MTP100TCR PO; -NS 100 ML (IVPB) BAG IV ONE; +SIMV40TA25 PO; -SIMV40TA4 PO
[2019-06-22 10:40] VITALS: BP 140/60
[2019-07-06 09:00] VITALS: BP 92/58
[2019-07-06 10:25] VITALS: BP 100/50
== END 2019-07-06 | disposition home or self-care (01) ==
LOC: PULM 09:30
PROVIDERS: ATTEND Family Medicine
DX: J44.9 Chronic obstructive pulmonary disease, unspecified (principal); J96.90 Respiratory failure, unspecified, unspecified whether with hypoxia or hypercapnia; C34.90 Malignant neoplasm of unspecified part of unspecified bronchus or lung
CPT/HCPCS: 99211

== ENCOUNTER → 2019-07-20 | Outpatient (CLI) | payer OTHER, MEDICARE ==
[~2019-07-20] MED LIST changes: -MONT10TA24 PO; +MONT10TA26 PO; -ONDA8TAB12 PO; +ONDA8TAB15 PO
--- NOTE | 2019-07-20 13:53 | Diagnostic Imaging Report ---
INDICATION: Diffuse large B-cell lymphoma, restaging and evaluation of treatment response. TECHNIQUE: Serum blood glucose level at the time of injection was 126 mg/dL. The patient was injected with 14.3 mCi F-18 FDG intravenously in the left forearm and PET imaging was performed from the top of skull to mid thighs. Noncontrast CT was also performed for attenuation correction and anatomic correlation. All CT scans use one or more of the following dose optimizing techniques: automated exposure control, MA and/or KvP adjustment based on patient size and exam type or iterative reconstruction. COMPARISON: Correlation is made with prior PET/CT from 12/08/2018. FINDINGS: There is symmetric activity throughout the brain. The soft tissues of the neck are unremarkable. Previously noted hypermetabolic mass in the right upper lobe has resolved. There are some residual areas of linear parenchymal density in the right upper lobe suggestive of scarring. No region of hypermetabolism is identified. No mediastinal or hilar hypermetabolism is identified. Imaging through the abdomen and pelvis demonstrates physiologic activity within the gastrointestinal and genitourinary tracts. No suspicious hypermetabolism is identified. IMPRESSION: Resolution of previously noted hypermetabolic mass in the right upper lobe when compared with prior PET/CT study from 12/08/2018. No new mass is identified. There are some areas of parenchymal scarring in the right upper lobe. Dictated by: Dictated on workstation # [id number]
== END ==
LOC: RAD 09:28
PROVIDERS: ATTEND Internal Medicine Hematology & Oncology
DX: J98.4 Other disorders of lung (principal); C83.39 Diffuse large B-cell lymphoma, extranodal and solid organ sites; C83.08 Small cell B-cell lymphoma, lymph nodes of multiple sites

== ENCOUNTER 2019-07-27 09:30 | Outpatient (RCR) | payer OTHER, MEDICARE ==
[2019-07-13 10:10] VITALS: BP 142/60
[2019-07-15 09:00] VITALS: BP 140/60
[2019-07-15 10:16] VITALS: BP 120/68
[2019-07-22 08:45] VITALS: BP 160/50
[2019-07-22 10:09] VITALS: BP 122/64
[2019-07-27 08:35] VITALS: BP 132/60
[~2019-07-27 09:30] MED LIST changes: +METF-865 PO; -METF500T19 PO
[2019-07-27 10:04] VITALS: BP 118/62
[2019-07-29 08:35] VITALS: BP 140/80
[2019-07-29 10:12] VITALS: BP 140/80
[2019-08-03 08:50] VITALS: BP 175/40
[2019-08-03 10:15] VITALS: BP 107/70
[2019-08-12 10:40] VITALS: BP 140/40
[2019-08-12 11:15] VITALS: BP 140/60
== END 2019-10-13 | disposition home or self-care (01) ==
LOC: PULM 09:30
PROVIDERS: ATTEND Family Medicine
DX: J44.9 Chronic obstructive pulmonary disease, unspecified (principal); J96.90 Respiratory failure, unspecified, unspecified whether with hypoxia or hypercapnia; C34.90 Malignant neoplasm of unspecified part of unspecified bronchus or lung

== ENCOUNTER 2019-07-28 12:31 | Outpatient (RCR) | payer OTHER, MEDICARE ==
[2019-05-21 08:59] LABS: BASOPHILS # (AUTO) 0.1 10^3/uL (0.0-0.1); BASOPHILS % (AUTO) 3 % (0-10); EOSINOPHILS # (AUTO) 0.2 10^3/uL (0.0-0.3); EOSINOPHILS % (AUTO) 6 % (0-10); HEMATOCRIT 34 % (40-54); HEMOGLOBIN 10.7 G/DL (13.3-17.7); LYMPHOCYTES # (AUTO) 0.8 X 10^3 (1.0-4.0); LYMPHOCYTES % (AUTO) 23 % (12-44); MEAN CORPUSCULAR HEMOGLOBIN 26 PG (25-34); MEAN CORPUSCULAR HGB CONC 32 G/DL (32-36); MEAN CORPUSCULAR VOLUME 83 FL (80-99); MEAN PLATELET VOLUME 10.6 FL (7.4-10.4); MONOCYTES # (AUTO) 1.2 X 10^3 (0.0-1.0); MONOCYTES % (AUTO) 32 % (0-12); NEUTROPHILS # (AUTO) 1.3 X 10^3 (1.8-7.8); NEUTROPHILS % (AUTO) 36 % (42-75); PLATELET COUNT 238 10^3/uL (130-400); RED CELL DISTRIBUTION WIDTH 20.9 % (10.0-14.5); WHITE BLOOD COUNT 3.7 10^3/uL (4.3-11.0)
[2019-05-21 09:15] LABS: BUN/CREATININE RATIO 12; CALCIUM 9.5 MG/DL (8.5-10.1); CARBON DIOXIDE 22 MMOL/L (21-32); CHLORIDE 104 MMOL/L (98-107); CREATININE SERUM 0.95 MG/DL (0.60-1.30); GFR ESTIMATED > 60; GLUCOSE 160 MG/DL (70-105); SODIUM 141 MMOL/L (135-145)
[2019-05-28 08:39] LABS: BASOPHILS # (AUTO) 0.1 10^3/uL (0.0-0.1); BASOPHILS % (AUTO) 1 % (0-10); EOSINOPHILS # (AUTO) 0.2 10^3/uL (0.0-0.3); EOSINOPHILS % (AUTO) 2 % (0-10); HEMATOCRIT 36 % (40-54); HEMOGLOBIN 11.1 G/DL (13.3-17.7); LYMPHOCYTES # (AUTO) 1.4 X 10^3 (1.0-4.0); LYMPHOCYTES % (AUTO) 13 % (12-44); MEAN CORPUSCULAR HEMOGLOBIN 26 PG (25-34); MEAN CORPUSCULAR HGB CONC 31 G/DL (32-36); MEAN CORPUSCULAR VOLUME 85 FL (80-99); MEAN PLATELET VOLUME 9.9 FL (7.4-10.4); MONOCYTES # (AUTO) 1.4 X 10^3 (0.0-1.0); MONOCYTES % (AUTO) 13 % (0-12); NEUTROPHILS # (AUTO) 7.5 X 10^3 (1.8-7.8); NEUTROPHILS % (AUTO) 71 % (42-75); PLATELET COUNT 307 10^3/uL (130-400); RED CELL DISTRIBUTION WIDTH 21.7 % (10.0-14.5); WHITE BLOOD COUNT 10.5 10^3/uL (4.3-11.0)
[2019-05-28 08:54] LABS: BUN/CREATININE RATIO 13; CALCIUM 9.3 MG/DL (8.5-10.1); CARBON DIOXIDE 21 MMOL/L (21-32); CHLORIDE 104 MMOL/L (98-107); CREATININE SERUM 0.96 MG/DL (0.60-1.30); GFR ESTIMATED > 60; GLUCOSE 176 MG/DL (70-105); POTASSIUM 3.9 MMOL/L (3.6-5.0); SODIUM 141 MMOL/L (135-145)
[2019-06-02 09:23] LABS: BASOPHILS # (AUTO) 0.1 10^3/uL (0.0-0.1); BASOPHILS % (AUTO) 1 % (0-10); EOSINOPHILS # (AUTO) 0.1 10^3/uL (0.0-0.3); EOSINOPHILS % (AUTO) 1 % (0-10); HEMATOCRIT 35 % (40-54); HEMOGLOBIN 10.9 G/DL (13.3-17.7); LYMPHOCYTES % (AUTO) 11 % (12-44); MEAN CORPUSCULAR HEMOGLOBIN 27 PG (25-34); MEAN CORPUSCULAR HGB CONC 32 G/DL (32-36); MEAN CORPUSCULAR VOLUME 85 FL (80-99); MEAN PLATELET VOLUME 9.2 FL (7.4-10.4); MONOCYTES # (AUTO) 1.2 X 10^3 (0.0-1.0); MONOCYTES % (AUTO) 13 % (0-12); NEUTROPHILS # (AUTO) 6.6 X 10^3 (1.8-7.8); NEUTROPHILS % (AUTO) 74 % (42-75); PLATELET COUNT 502 10^3/uL (130-400); RED CELL DISTRIBUTION WIDTH 21.5 % (10.0-14.5)
[2019-06-02 09:48] LABS: ALANINE AMINOTRANSFERASE 18 U/L (0-55); ALBUMIN 4.3 GM/DL (3.2-4.5); ALKALINE PHOSPHATASE 44 U/L (40-136); BILIRUBIN,TOTAL 0.3 MG/DL (0.1-1.0); BUN/CREATININE RATIO 14; CARBON DIOXIDE 24 MMOL/L (21-32); CHLORIDE 103 MMOL/L (98-107); CREATININE SERUM 1.05 MG/DL (0.60-1.30); GFR ESTIMATED > 60; GLUCOSE 176 MG/DL (70-105); POTASSIUM 3.8 MMOL/L (3.6-5.0); SODIUM 142 MMOL/L (135-145); TOTAL PROTEIN 6.8 GM/DL (6.4-8.2)
[2019-06-10 08:52] LABS: BASOPHILS # (AUTO) 0.1 10^3/uL (0.0-0.1); BASOPHILS % (AUTO) 3 % (0-10); EOSINOPHILS # (AUTO) 0.2 10^3/uL (0.0-0.3); EOSINOPHILS % (AUTO) 10 % (0-10); HEMATOCRIT 32 % (40-54); HEMOGLOBIN 10.1 G/DL (13.3-17.7); LYMPHOCYTES # (AUTO) 0.5 X 10^3 (1.0-4.0); LYMPHOCYTES % (AUTO) 27 % (12-44); MEAN CORPUSCULAR HEMOGLOBIN 27 PG (25-34); MEAN CORPUSCULAR HGB CONC 32 G/DL (32-36); MEAN CORPUSCULAR VOLUME 84 FL (80-99); MEAN PLATELET VOLUME 10.6 FL (7.4-10.4); MONOCYTES # (AUTO) 0.8 X 10^3 (0.0-1.0); MONOCYTES % (AUTO) 42 % (0-12); NEUTROPHILS # (AUTO) 0.4 X 10^3 (1.8-7.8); NEUTROPHILS % (AUTO) 19 % (42-75); PLATELET COUNT 120 10^3/uL (130-400); RED CELL DISTRIBUTION WIDTH 20.7 % (10.0-14.5); WHITE BLOOD COUNT 1.9 10^3/uL (4.3-11.0)
[2019-06-10 09:09] LABS: BUN/CREATININE RATIO 14; CALCIUM 9.4 MG/DL (8.5-10.1); CARBON DIOXIDE 24 MMOL/L (21-32); CHLORIDE 103 MMOL/L (98-107); CREATININE SERUM 0.92 MG/DL (0.60-1.30); GFR ESTIMATED > 60; GLUCOSE 207 MG/DL (70-105); POTASSIUM 4.1 MMOL/L (3.6-5.0); SODIUM 139 MMOL/L (135-145)
[2019-06-16 09:29] LABS: BASOPHILS # (AUTO) 0.1 10^3/uL (0.0-0.1); BASOPHILS % (AUTO) 1 % (0-10); EOSINOPHILS # (AUTO) 0.2 10^3/uL (0.0-0.3); EOSINOPHILS % (AUTO) 3 % (0-10); HEMATOCRIT 33 % (40-54); HEMOGLOBIN 10.3 G/DL (13.3-17.7); LYMPHOCYTES # (AUTO) 0.8 X 10^3 (1.0-4.0); LYMPHOCYTES % (AUTO) 12 % (12-44); MEAN CORPUSCULAR HEMOGLOBIN 27 PG (25-34); MEAN CORPUSCULAR HGB CONC 31 G/DL (32-36); MEAN CORPUSCULAR VOLUME 87 FL (80-99); MEAN PLATELET VOLUME 10.1 FL (7.4-10.4); MONOCYTES # (AUTO) 1.5 X 10^3 (0.0-1.0); MONOCYTES % (AUTO) 21 % (0-12); NEUTROPHILS # (AUTO) 4.7 X 10^3 (1.8-7.8); NEUTROPHILS % (AUTO) 64 % (42-75); PLATELET COUNT 267 10^3/uL (130-400); RED CELL DISTRIBUTION WIDTH 20.7 % (10.0-14.5); WHITE BLOOD COUNT 7.2 10^3/uL (4.3-11.0)
[2019-06-16 09:50] LABS: BUN/CREATININE RATIO 13; CALCIUM 9.2 MG/DL (8.5-10.1); CARBON DIOXIDE 22 MMOL/L (21-32); CHLORIDE 104 MMOL/L (98-107); CREATININE SERUM 1.01 MG/DL (0.60-1.30); GFR ESTIMATED > 60; GLUCOSE 153 MG/DL (70-105); POTASSIUM 4.1 MMOL/L (3.6-5.0); SODIUM 139 MMOL/L (135-145)
[2019-06-23 11:23] LABS: BASOPHILS # (AUTO) 0.1 10^3/uL (0.0-0.1); BASOPHILS % (AUTO) 1 % (0-10); EOSINOPHILS # (AUTO) 0.1 10^3/uL (0.0-0.3); EOSINOPHILS % (AUTO) 1 % (0-10); HEMATOCRIT 32 % (40-54); HEMOGLOBIN 10.2 G/DL (13.3-17.7); LYMPHOCYTES # (AUTO) 0.6 X 10^3 (1.0-4.0); LYMPHOCYTES % (AUTO) 7 % (12-44); MEAN CORPUSCULAR HEMOGLOBIN 28 PG (25-34); MEAN CORPUSCULAR HGB CONC 32 G/DL (32-36); MEAN CORPUSCULAR VOLUME 88 FL (80-99); MONOCYTES # (AUTO) 1.4 X 10^3 (0.0-1.0); MONOCYTES % (AUTO) 18 % (0-12); NEUTROPHILS # (AUTO) 5.6 X 10^3 (1.8-7.8); NEUTROPHILS % (AUTO) 72 % (42-75); PLATELET COUNT 538 10^3/uL (130-400); RED CELL DISTRIBUTION WIDTH 21.1 % (10.0-14.5); WHITE BLOOD COUNT 7.8 10^3/uL (4.3-11.0)
[2019-06-23 11:41] LABS: ALANINE AMINOTRANSFERASE 18 U/L (0-55); ALBUMIN 4.3 GM/DL (3.2-4.5); ALKALINE PHOSPHATASE 41 U/L (40-136); BILIRUBIN,TOTAL 0.3 MG/DL (0.1-1.0); BUN/CREATININE RATIO 17; CALCIUM 9.6 MG/DL (8.5-10.1); CARBON DIOXIDE 25 MMOL/L (21-32); CHLORIDE 106 MMOL/L (98-107); CREATININE SERUM 0.94 MG/DL (0.60-1.30); GFR ESTIMATED > 60; GLUCOSE 154 MG/DL (70-105); SODIUM 142 MMOL/L (135-145); TOTAL PROTEIN 6.7 GM/DL (6.4-8.2)
[2019-06-30 14:55] LABS: BASOPHILS # (AUTO) 0.1 10^3/uL (0.0-0.1); BASOPHILS % (AUTO) 5 % (0-10); EOSINOPHILS # (AUTO) 0.1 10^3/uL (0.0-0.3); EOSINOPHILS % (AUTO) 6 % (0-10); HEMATOCRIT 30 % (40-54); HEMOGLOBIN 9.5 G/DL (13.3-17.7); LYMPHOCYTES # (AUTO) 0.6 X 10^3 (1.0-4.0); LYMPHOCYTES % (AUTO) 45 % (12-44); MEAN CORPUSCULAR HEMOGLOBIN 28 PG (25-34); MEAN CORPUSCULAR HGB CONC 31 G/DL (32-36); MEAN CORPUSCULAR VOLUME 88 FL (80-99); MEAN PLATELET VOLUME 10.2 FL (7.4-10.4); MONOCYTES # (AUTO) 0.4 X 10^3 (0.0-1.0); MONOCYTES % (AUTO) 34 % (0-12); NEUTROPHILS # (AUTO) 0.1 X 10^3 (1.8-7.8); NEUTROPHILS % (AUTO) 10 % (42-75); PLATELET COUNT 109 10^3/uL (130-400); RED CELL DISTRIBUTION WIDTH 19.7 % (10.0-14.5)
[2019-06-30 14:59] LABS: WHITE BLOOD COUNT 1.3 10^3/uL (4.3-11.0)
[2019-06-30 15:27] LABS: BUN/CREATININE RATIO 15; CALCIUM 9.2 MG/DL (8.5-10.1); CARBON DIOXIDE 26 MMOL/L (21-32); CHLORIDE 105 MMOL/L (98-107); CREATININE SERUM 0.92 MG/DL (0.60-1.30); GFR ESTIMATED > 60; GLUCOSE 135 MG/DL (70-105); SODIUM 142 MMOL/L (135-145)
[2019-07-07 09:14] LABS: BASOPHILS # (AUTO) 0.1 10^3/uL (0.0-0.1); BASOPHILS % (AUTO) 1 % (0-10); EOSINOPHILS # (AUTO) 0.2 10^3/uL (0.0-0.3); EOSINOPHILS % (AUTO) 3 % (0-10); HEMATOCRIT 34 % (40-54); HEMOGLOBIN 10.5 G/DL (13.3-17.7); LYMPHOCYTES # (AUTO) 0.9 X 10^3 (1.0-4.0); LYMPHOCYTES % (AUTO) 12 % (12-44); MEAN CORPUSCULAR HEMOGLOBIN 28 PG (25-34); MEAN CORPUSCULAR HGB CONC 31 G/DL (32-36); MEAN CORPUSCULAR VOLUME 90 FL (80-99); MEAN PLATELET VOLUME 10.1 FL (7.4-10.4); MONOCYTES # (AUTO) 1.5 X 10^3 (0.0-1.0); MONOCYTES % (AUTO) 20 % (0-12); NEUTROPHILS # (AUTO) 4.8 X 10^3 (1.8-7.8); NEUTROPHILS % (AUTO) 65 % (42-75); PLATELET COUNT 258 10^3/uL (130-400); RED CELL DISTRIBUTION WIDTH 20.8 % (10.0-14.5); WHITE BLOOD COUNT 7.4 10^3/uL (4.3-11.0)
[2019-07-07 09:41] LABS: BUN/CREATININE RATIO 13; CALCIUM 9.4 MG/DL (8.5-10.1); CARBON DIOXIDE 23 MMOL/L (21-32); CHLORIDE 104 MMOL/L (98-107); CREATININE SERUM 1.01 MG/DL (0.60-1.30); GFR ESTIMATED > 60; GLUCOSE 174 MG/DL (70-105); SODIUM 140 MMOL/L (135-145)
[2019-07-14 14:56] LABS: BASOPHILS # (AUTO) 0.1 10^3/uL (0.0-0.1); BASOPHILS % (AUTO) 1 % (0-10); EOSINOPHILS # (AUTO) 0.1 10^3/uL (0.0-0.3); EOSINOPHILS % (AUTO) 1 % (0-10); HEMATOCRIT 33 % (40-54); HEMOGLOBIN 10.3 G/DL (13.3-17.7); LYMPHOCYTES # (AUTO) 0.5 X 10^3 (1.0-4.0); LYMPHOCYTES % (AUTO) 8 % (12-44); MEAN CORPUSCULAR HEMOGLOBIN 28 PG (25-34); MEAN CORPUSCULAR HGB CONC 31 G/DL (32-36); MEAN CORPUSCULAR VOLUME 90 FL (80-99); MEAN PLATELET VOLUME 9.1 FL (7.4-10.4); MONOCYTES # (AUTO) 1.2 X 10^3 (0.0-1.0); MONOCYTES % (AUTO) 18 % (0-12); NEUTROPHILS # (AUTO) 4.9 X 10^3 (1.8-7.8); NEUTROPHILS % (AUTO) 72 % (42-75); PLATELET COUNT 506 10^3/uL (130-400); WHITE BLOOD COUNT 6.8 10^3/uL (4.3-11.0)
[2019-07-14 15:20] LABS: ALANINE AMINOTRANSFERASE 22 U/L (0-55); ALBUMIN 4.2 GM/DL (3.2-4.5); ALKALINE PHOSPHATASE 44 U/L (40-136); BILIRUBIN,TOTAL 0.3 MG/DL (0.1-1.0); BUN/CREATININE RATIO 15; CALCIUM 9.3 MG/DL (8.5-10.1); CARBON DIOXIDE 24 MMOL/L (21-32); CHLORIDE 105 MMOL/L (98-107); GFR ESTIMATED > 60; GLUCOSE 160 MG/DL (70-105); POTASSIUM 4.1 MMOL/L (3.6-5.0); SODIUM 142 MMOL/L (135-145); TOTAL PROTEIN 6.7 GM/DL (6.4-8.2)
[~2019-07-28 12:31] MED LIST changes: +ACETAMINOPHEN 325 MG TAB (TYLENOL) CANCER CTR PO PRN; +ALTEPLASE 2 MG (CATHFLO) CANCER CENTER IV ONE; +CYCLOPHOSPHAMIDE IV SCH; +DOXORUBICIN HCL IV SCH; +FOSAPREPITANT DIMEGLUMINE 150 MG in NS (IVPB) CANCER CENTER ONLY 150 ML IV SCH; -METF-865 PO; +METF500T19 PO; +NS IV 1000 ML (CANCER CTR) IV SCH; +NS IV SCH; +PALONOSETRON HCL 0.25 MG, DEXAMETHASONE INJECTION 10 MG in NS (IVPB) CANCER CENTER 50 ML IV SCH; +PEGFILGRASTIM 6 MG/0.6 ML ONPRO KIT SQ SCH; +PEGFILGRASTIM 6 MG/0.6ML NEULASTA SC SCH; +diphenhydrAMINE 25 MG TAB (BENADRYL) CANCER CENTER PO SCH; +diphenhydrAMINE 50 MG/ML INJ (CANCER CENTER) IV PRN; +riTUXimab 1,000 MG in NS (IVPB) CANCER CENTER 233 ML IV SCH; +vinCRIStine SULFATE 2 MG in NS (IVPB) CANCER CENTER 50 ML IV SCH
== END 2019-08-19 | disposition home or self-care (01) ==
LOC: ONC 12:31
PROVIDERS: ATTEND Internal Medicine Hematology & Oncology
DX: C83.39 Diffuse large B-cell lymphoma, extranodal and solid organ sites (principal); C85.95 Non-Hodgkin lymphoma, unspecified, lymph nodes of inguinal region and lower limb; J44.9 Chronic obstructive pulmonary disease, unspecified; I10 Essential (primary) hypertension; E78.5 Hyperlipidemia, unspecified; G47.33 Obstructive sleep apnea (adult) (pediatric); Z79.84 Long term (current) use of oral hypoglycemic drugs; Z79.82 Long term (current) use of aspirin; Z79.899 Other long term (current) drug therapy; Z87.891 Personal history of nicotine dependence
CPT/HCPCS: 36591; 36593; 80048; 80053; 85025; 96367; 96375; 96377; 96411; 96413; 96417; 99204; 99212; 99213; J2505; J9312

== ENCOUNTER 2019-09-29 13:04 | Outpatient (RCR) | payer OTHER, MEDICARE ==
[~2019-09-29 13:04] MED LIST changes: -ACETAMINOPHEN 325 MG TAB (TYLENOL) CANCER CTR PO PRN; -ALTEPLASE 2 MG (CATHFLO) CANCER CENTER IV ONE; -CYCLOPHOSPHAMIDE IV SCH; -DOXORUBICIN HCL IV SCH; -FOSAPREPITANT DIMEGLUMINE 150 MG in NS (IVPB) CANCER CENTER ONLY 150 ML IV SCH; +METF-865 PO; -METF500T19 PO; -NS IV 1000 ML (CANCER CTR) IV SCH; -NS IV SCH; -PALONOSETRON HCL 0.25 MG, DEXAMETHASONE INJECTION 10 MG in NS (IVPB) CANCER CENTER 50 ML IV SCH; -PEGFILGRASTIM 6 MG/0.6 ML ONPRO KIT SQ SCH; -PEGFILGRASTIM 6 MG/0.6ML NEULASTA SC SCH; -diphenhydrAMINE 25 MG TAB (BENADRYL) CANCER CENTER PO SCH; -diphenhydrAMINE 50 MG/ML INJ (CANCER CENTER) IV PRN; -riTUXimab 1,000 MG in NS (IVPB) CANCER CENTER 233 ML IV SCH; -vinCRIStine SULFATE 2 MG in NS (IVPB) CANCER CENTER 50 ML IV SCH
[2019-09-29 13:32] LABS: BASOPHILS # (AUTO) 0.1 10^3/uL (0.0-0.1); BASOPHILS % (AUTO) 1 % (0-10); EOSINOPHILS # (AUTO) 0.2 10^3/uL (0.0-0.3); EOSINOPHILS % (AUTO) 2 % (0-10); HEMATOCRIT 33 % (40-54); HEMOGLOBIN 10.1 G/DL (13.3-17.7); LYMPHOCYTES # (AUTO) 0.8 X 10^3 (1.0-4.0); LYMPHOCYTES % (AUTO) 8 % (12-44); MEAN CORPUSCULAR HEMOGLOBIN 27 PG (25-34); MEAN CORPUSCULAR HGB CONC 31 G/DL (32-36); MEAN CORPUSCULAR VOLUME 87 FL (80-99); MEAN PLATELET VOLUME 8.8 FL (7.4-10.4); MONOCYTES # (AUTO) 1.1 X 10^3 (0.0-1.0); MONOCYTES % (AUTO) 12 % (0-12); NEUTROPHILS # (AUTO) 7.1 X 10^3 (1.8-7.8); NEUTROPHILS % (AUTO) 78 % (42-75); PLATELET COUNT 404 10^3/uL (130-400); RED CELL DISTRIBUTION WIDTH 17.4 % (10.0-14.5); WHITE BLOOD COUNT 9.1 10^3/uL (4.3-11.0)
[2019-09-29 13:52] LABS: ALANINE AMINOTRANSFERASE 25 U/L (0-55); ALBUMIN 4.2 GM/DL (3.2-4.5); ALKALINE PHOSPHATASE 48 U/L (40-136); BILIRUBIN,TOTAL 0.3 MG/DL (0.1-1.0); BUN/CREATININE RATIO 15; CARBON DIOXIDE 26 MMOL/L (21-32); CHLORIDE 103 MMOL/L (98-107); CREATININE SERUM 0.93 MG/DL (0.60-1.30); GFR ESTIMATED > 60; GLUCOSE 131 MG/DL (70-105); POTASSIUM 3.9 MMOL/L (3.6-5.0); SODIUM 142 MMOL/L (135-145); TOTAL PROTEIN 6.7 GM/DL (6.4-8.2)
== END 2019-11-05 08:32 | disposition home or self-care (01) ==
LOC: ONC 13:04
PROVIDERS: ATTEND Internal Medicine Hematology & Oncology
DX: Z45.2 Encounter for adjustment and management of vascular access device (principal); C83.39 Diffuse large B-cell lymphoma, extranodal and solid organ sites; C85.95 Non-Hodgkin lymphoma, unspecified, lymph nodes of inguinal region and lower limb; J44.9 Chronic obstructive pulmonary disease, unspecified; I10 Essential (primary) hypertension; E78.5 Hyperlipidemia, unspecified; G47.33 Obstructive sleep apnea (adult) (pediatric); Z79.84 Long term (current) use of oral hypoglycemic drugs; Z79.82 Long term (current) use of aspirin; Z79.899 Other long term (current) drug therapy; Z87.891 Personal history of nicotine dependence
CPT/HCPCS: 36591; 80053; 83615; 84443; 85025; 96523

== ENCOUNTER 2019-11-05 08:33 | Outpatient (RCR) | payer OTHER, MEDICARE ==
[2019-11-30 10:39] LABS: BASOPHILS % (AUTO) 0 % (0-10); EOSINOPHILS # (AUTO) 0.2 10^3/uL (0.0-0.3); EOSINOPHILS % (AUTO) 2 % (0-10); HEMATOCRIT 34 % (40-54); HEMOGLOBIN 10.7 G/DL (13.3-17.7); LYMPHOCYTES # (AUTO) 0.9 X 10^3 (1.0-4.0); LYMPHOCYTES % (AUTO) 9 % (12-44); MEAN CORPUSCULAR HEMOGLOBIN 26 PG (25-34); MEAN CORPUSCULAR HGB CONC 31 G/DL (32-36); MEAN CORPUSCULAR VOLUME 82 FL (80-99); MEAN PLATELET VOLUME 9.3 FL (7.4-10.4); MONOCYTES % (AUTO) 11 % (0-12); NEUTROPHILS # (AUTO) 7.5 X 10^3 (1.8-7.8); NEUTROPHILS % (AUTO) 78 % (42-75); PLATELET COUNT 360 10^3/uL (130-400); WHITE BLOOD COUNT 9.7 10^3/uL (4.3-11.0)
[2019-11-30 11:03] LABS: ALANINE AMINOTRANSFERASE 21 U/L (0-55); ALBUMIN 4.2 GM/DL (3.2-4.5); ALKALINE PHOSPHATASE 50 U/L (40-136); BILIRUBIN,TOTAL 0.3 MG/DL (0.1-1.0); BUN/CREATININE RATIO 17; CALCIUM 9.1 MG/DL (8.5-10.1); CARBON DIOXIDE 28 MMOL/L (21-32); CHLORIDE 103 MMOL/L (98-107); CREATININE SERUM 0.87 MG/DL (0.60-1.30); GFR ESTIMATED > 60; GLUCOSE 157 MG/DL (70-105); SODIUM 140 MMOL/L (135-145); TOTAL PROTEIN 6.9 GM/DL (6.4-8.2)
[2019-12-09] MEDS ORDERED: ACHD5005 PO (11:55)
[2019-12-09] MEDS ORDERED: PRD20T PO (11:55)
== END 2020-02-03 | disposition home or self-care (01) ==
LOC: ONC 08:33
PROVIDERS: ATTEND Internal Medicine Hematology & Oncology
DX: Z45.2 Encounter for adjustment and management of vascular access device (principal); C83.39 Diffuse large B-cell lymphoma, extranodal and solid organ sites; C85.95 Non-Hodgkin lymphoma, unspecified, lymph nodes of inguinal region and lower limb; J44.9 Chronic obstructive pulmonary disease, unspecified; I10 Essential (primary) hypertension; E78.5 Hyperlipidemia, unspecified; G47.33 Obstructive sleep apnea (adult) (pediatric); Z79.84 Long term (current) use of oral hypoglycemic drugs; Z79.82 Long term (current) use of aspirin; Z79.899 Other long term (current) drug therapy; Z87.891 Personal history of nicotine dependence
CPT/HCPCS: 80053; 83615; 85025; 96523

== ENCOUNTER 2019-12-09 08:34 | Emergency (ER) | payer OTHER, MEDICARE ==
[~2019-12-09] VITALS: Ht 187.9 cm; Wt 136.0 kg
--- NOTE | 2019-12-09 08:50 | NUR ---
Spoke with pt's on the phone to gather medication and PMH information.
--- OUTSIDE RECORDS SUMMARY | 2019-12-09 08:51 | XMS REPORT | CCD ---
Author Author Michael Hyman D.O. Organization [facility] Address [address] [place] [address] Phone Care Team Providers Care Fusing Machine Feeder Name Role Phone Neela Hyman D.O., PP Unavailable CCM Unavailable Summary Purpose Interface Exchange Insurance Providers Payer name Policy type / Coverage type Covered green party ID Effective Begin Date Effective End Date ABS FOR [employer] Commercial Insurance [id number] Unknown Family History Family History data not found Social History Social History Element Codes Description Effective Dates Marital status Unknown 05/30/[address]: 6816720 Former smoker quit 25 years ago 01/01/2011 Allergies, Adverse Reactions, Alerts Substance Reaction Codes Entered Date Inactivated Date Status CODEINE Unknown 08/22/2009 No Inactive Date Active Problems Condition Codes Effective Dates Condition Status Chronic obstructive pulmonary disease, unspecified ICD -9: 496 ICD-10: J44.9 10/30/2016 Active Essential hypertension ICD-9: 401.9 ICD-10: I10 11/30/2013 Active Mixed hyperlipidemia ICD-9: 272.4 ICD-10: E78.2 11/30/2013 Active Type 2 diabetes mellitus with diabetic neuropathy, uns pecified ICD-9: 250.60 ICD-10: E11.40 12/01/2019 Active Type 2 diabetes mellitus with hyperglycemia ICD-9: 250 .02 ICD-10: E11.65 06/28/2014 Active Chronic obstructive pulmonary disease with (acute) exa cerbation ICD-9: 491.21 ICD-10: J44.1 07/16/2018 Active Sore on toe ICD-9: 709.9 ICD-10: L98.9 07/06/2019 Active 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 03/29/2019 Active Hypokalemia ICD-9: 276.8 ICD-10: E87.6 03/29/2019 Active PNEUMOCOCCAL VACCINE ICD-9: V03.82 ICD-10: Z23 02/10/2018 Active Other nonspecific abnormal finding of lung field ICD-9 : 786.6 ICD-10: R91.8 11/24/2018 Active 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 ICD-9: 239.1 ICD-10: D49.1 12/09/2018 Active Solitary pulmonary nodule ICD-9: 793.11 ICD-10: R91.1 12/09/2018 Active Tinea corporis ICD-9: 110.5 ICD-10: B35.4 12/09/2018 Active Other fatigue ICD-9: 780.79 ICD-10: R53.83 07/31/2017 Active COUGH ICD-9: 786.2 ICD-10: R05 08/13/2015 Active Other disorders of lung ICD-9: 518.89 ICD-10: J98.4 11/24/2018 Active Dyspnea, unspecified ICD-9: 786.09 ICD-10: R06.00 09/21/2014 Active Pneumonia, unspecified organism ICD-9: 486 ICD-10: J18.9 07/16/2018 Active Acute bronchitis, unspecified ICD-9: 466.0 ICD-10: J20.9 06/13/2016 Active Personal history of pneumonia (recurrent) ICD-9: V12.6 1 ICD-10: Z87.01 08/27/2018 Active Other specified symptoms and signs invol ving the circulatory and respiratory systems ICD-9: 785.9 ICD-10: R09.89 08/13/2018 Active Acute bronchitis due to other specified organisms ICD- 9: 466.0 ICD-10: J20.8 07/13/2018 Active Other specified symptoms and signs invol ving the circulatory and respiratory systems ICD-9: 514 ICD-10: R09.89 08/11/2018 Active Localized edema ICD-9: 782.3 ICD-10: R60.0 02/10/2018 Active FLU VACCINE ICD-9: V04.81 ICD-10: Z23 03/28/2017 Active Type 2 diabetes mellitus without complications ICD-9: 250.00 ICD-10: E11.9 11/30/2013 Active Cutaneous abscess of back [any part, except buttock] I CD-9: 682.2 ICD-10: L02.212 11/05/2017 Active Anemia, unspecified ICD-9: 285.9 ICD-10: D64.9 01/30/2017 Active Allergic urticaria ICD-9: 708.0 ICD-10: L50.0 09/09/2017 Active Acute gastritis without bleeding ICD-9: 535.00 ICD-10: K29.00 08/07/2017 Active Generalized enlarged lymph nodes ICD-9: 785.6 ICD-10: R59.1 08/07/2017 Active Occlusion and stenosis of right carotid artery ICD-9: 433.10 ICD-10: I65.21 06/19/2017 Active Localized swelling, mass and lump, neck ICD-9: 784.2 ICD-10: R22.1 06/09/2017 Active Acute sialoadenitis ICD-9: 527.2 ICD-10: K11.21 06/02/2017 Active Zoster without complications ICD-9: 053.9 ICD-10: B02.9 06/02/2017 Active Chronic obstructive pulmonary disease with acute lower respiratory infection ICD-9: 491.22 ICD-10: J44.0 04/10/2017 Active Impacted cerumen, bilateral ICD-9: 380.4 ICD-10: H61.23 04/10/2017 Active Wheezing ICD-9: 786.09 ICD-10: R06.2 09/21/2014 Active Encounter for screening for malignant neoplasm of pros ruff ICD-9: V76.44 ICD-10: Z12.5 01/30/2017 Active Other seasonal allergic rhinitis ICD-9: 477.9 ICD-10: J30.2 10/04/2014 Active Left lower quadrant pain ICD-9: 789.04 ICD-10: R10.32 04/21/2016 Active Left upper quadrant pain ICD-9: 789.02 ICD-10: R10.12 04/21/2016 Active Unspecified abdominal pain ICD-9: 789.09 ICD-10: R10.9 04/21/2016 Active Wheezing ICD-9: 786.07 ICD-10: R06.2 09/21/2014 Active Left hand paresthesia ICD-9: 782.0 02/13/2015 Active ALLERGIC RHINITIS ICD-9: 477.9 10/04/2014 Active BRONCHITIS, ACUTE ICD-9: 466.0 09/22/2014 Active Arrhythmia ICD-9: 427.9 09/21/2014 Active DYSPNEA ICD-9: 786.09 09/21/2014 Active WHEEZING ICD-9: 786.07 09/21/2014 Active 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, UNCONTROLLED ICD-9: 250.02 2014 Active OTITIS MEDIA NOS ICD-9: 382.9 06/10/2014 Active SINUSITIS, ACUTE ICD-9: 461.9 06/10/2014 Active - I - HYPERLIPIDEMIA NEC/NOS ICD-9: 272.4 11/30/2013 Act avani - I - HYPERTENSION ICD-9: 401.9 11/30/2013 Active 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 ICD-9: 250.00 11/30/2013 Acti ve Hand lesion ICD-9: 709.9 11/30/2013 Active Agitation ICD-9: 307.9 05/29/2012 Active Frequent urination ICD-9: 788.41 05/29/2012 Active OTALGIA ICD-9: 388.70 05/25/2012 Active FINGER INJURY ICD-9: 959.5 12/16/2011 Active Diabetic neuropathy ICD-9: 250.60 01/01/2011 Active URINARY TRACT INFECTION ICD-9: 599.0 01/01/2011 Active GERD ICD-9: 530.81 10/09/2009 Active Depression Unknown 08/22/2009 Active Diabetes mellitus Type 2 Unknown 08/22/2009 Active Hyperlipidemia Unknown 08/22/2009 Active Hypertension Unknown 08/22/2009 Active Osteoarthritis Unknown 08/22/2009 Active Medications Medication Codes Instructions Start Date Stop Date Status Fill Instructions Lasix 40 mg tablet RxNorm: 120572 TAKE ONE TABLET BY MOUTH EVERY DA Y 12/02/2019 05/29/2020 Active diltiazem ER 360 mg capsule,24 hr,extended release RxNorm: 8 20223 TAKE ONE CAPSULE BY MOUTH AT BEDTIME -REPLACES 300MG 12/02/2019 05/29/2020 Active potassium chloride ER 20 mEq tablet,extended release RxNorm: 319131 TAKE ONE TABLET BY MOUTH TWO TIMES A DAY 11/01/2019 01/29/2020 Active Zocor 40 mg tablet RxNorm: 549986 TAKE ONE TABLET BY M OUTH EVERY NIGHT AT BEDTIME 10/20/2019 04/16/2020 Active MagOx 400 mg (241.3 mg magnesium) tablet RxNorm: 766820 TAKE ONE TABLET BY MOUTH EVERY DAY 10/20/2019 04/16/2020 Active fenofibrate micronized 134 mg capsule RxNorm: 364051 1 Capsule( s) Oral QD 09/22/2019 03/20/2020 Active metformin 500 mg tablet RxNorm: 866503 2 Tablet(s) Oral two afshan es a day 09/22/2019 12/20/2019 Active Benicar 40 mg tablet RxNorm: 747411 1 Tablet(s) Oral QD 09/22/2019 Active Singulair 10 mg tablet RxNorm: 239956 TAKE ONE TABLET BY MOUTH EVERY EVENING 09/22/2019 03/20/2020 Active Reselected prescribe r from [facility] to [facility] Lasix 40 mg tablet RxNorm: 043906 1 Tablet(s) Oral QD 08/24/201910/25 Inactive duloxetine 60 mg capsule,delayed release RxNorm: 025956 TAKE ONE CAPSULE BY MOUTH EVERY DAY 08/16/2019 02/11/2020 Active metoprolol succinate ER 100 mg tablet,extended release 24 hr RxNorm: 669478 TAKE ONE TABLET BY MOUTH TWICE A DAY 08/16/2019 05/11/2020 Active potassium chloride ER 20 mEq tablet,extended release RxNorm: 375258 1 Tablet(s) Oral two times a day 07/22/2019 10/19/2019 Inactive metformin 500 mg tablet RxNorm: 785108 2 Tablet(s) Oral two afshan es a day 07/13/2019 09/21/2019 Inactive Keflex 500 mg capsule RxNorm: 863666 1 Capsule(s) Oral three ti mes a day 07/06/2019 07/13/2019 Inactive Singulair 10 mg tablet RxNorm: 605721 TAKE ONE TABLET BY MOUTH EVERY EVENING 07/06/2019 09/21/2019 Inactive Reselected prescribe r from [facility] to [facility] Singulair 10 mg tablet RxNorm: 949562 TAKE ONE TABLET BY MOUTH EVERY EVENING 06/22/2019 07/05/2019 Inactive Reselected prescribe r from [facility] to [facility] Zocor 40 mg tablet RxNorm: 022333 TAKE ONE TABLET BY M OUTH EVERY NIGHT AT BEDTIME 06/21/2019 10/19/2019 Inactive MagOx 400 mg (241.3 mg magnesium) tablet RxNorm: 187530 1 Table t(s) Oral QD 06/21/2019 08/20/2019 Inactive diltiazem ER 360 mg capsule,24 hr,extended release RxNorm: 8 43398 TAKE ONE CAPSULE BY MOUTH AT BEDTIME -REPLACES 300MG 05/17/2019 11/12/2019 Inactive MagOx 400 mg (241.3 mg magnesium) tablet RxNorm: 680260 1 Table t(s) Oral QD 04/26/2019 06/20/2019 Inactive Lasix 40 mg tablet RxNorm: 814400 40 MG PO DAILY 04/12/2019 08/23/2019 Inactive Benicar 40 mg tablet RxNorm: 779240 1 Tablet(s) Oral QD 03/29/2019 Inactive potassium chloride ER 20 mEq tablet,extended release RxNorm: 330940 1 Tablet(s) Oral two times a day 03/29/2019 06/27/2019 Inactive potassium chloride ER 20 mEq tablet,extended release RxNorm: 786073 1 Tablet(s) Oral QD 03/29/2019 03/28/2019 Inactive Benicar 40 mg tablet RxNorm: 449427 1 Tablet(s) Oral QD 03/29/2019 Inactive MagOx 400 mg (241.3 mg magnesium) tablet RxNorm: 265033 1 Table t(s) Oral QD 03/29/2019 04/25/2019 Inactive metformin 500 mg tablet RxNorm: 335122 2 Tablet(s) Oral two afshan es a day 03/29/2019 07/12/2019 Inactive fenofibrate micronized 134 mg capsule RxNorm: 861921 TA KE ONE CAPSULE BY MOUTH EVERY DAY 03/05/2019 09/21/2019 Inactive duloxetine 60 mg capsule,delayed release RxNorm: 298124 1 Capsu le(s) PO QD 01/28/2019 07/26/2019 Inactive Trelegy Ellipta 100 mcg-62.5 mcg-25 mcg powder for inhalatio n RxNorm: 7703353 1 Puff(s) INH QD 01/06/2019 12/31/2019 Active 90 day supply prednisone 20 mg tablet RxNorm: 229387 1 Tablet(s) PO T ID for 3 days then 1 po BID for 3 days then 1 po daily for 3 days 01/05/2019 03/28/2019 Inacti ve metformin ER 1,000 mg tablet,extended release 24hr RxNorm: 1 489231 TAKE TWO TABLETS (1000MG) BY MOUTH TWO TIMES A DAY 12/22/2018 07/13/2019 Inacti ve Diflucan 100 mg tablet RxNorm: 054221 1 Tablet(s) PO QD 12/09/2018 Inactive prednisone 20 mg tablet RxNorm: 059418 1 Tablet(s) PO B ID for 4 days then 1 po daily for 4 days 11/24/2018 01/04/2019 Inactive albuterol sulfate 2.5 mg/3 mL (0.083 %) solution for n ebulization RxNorm: 791352 3 Milliliter(s) INH ONE VIAL VIA NEBULIZER EVERY 4 HOURS 07/21/2019 Inactive [AttnRPh: Saving apply/adjudicate RxGRP: SG20 RxBIN:[id number] RxPCN: ID#:[id number]] Trelegy Ellipta 100 mcg-62.5 mcg-25 mcg powder for inhalatio n RxNorm: 5421852 1 Puff(s) INH QD 10/27/2018 01/06/2019 Inactive 90 day supply diltiazem ER 360 mg capsule,24 hr,extended release RxNorm: 8 01252 TAKE ONE CAPSULE BY MOUTH AT BEDTIME -REPLACES 300MG 10/13/2018 04/10/2019 Inactive metoprolol succinate ER 100 mg tablet,extended release 24 hr RxNorm: 509302 TAKE ONE TABLET BY MOUTH TWICE A DAY 10/13/2018 07/09/2019 Inactive Trelegy Ellipta 100 mcg-62.5 mcg-25 mcg powder for inhalatio n RxNorm: 1963297 INHALE ONE PUFF ONCE DAILY 09/07/2018 10/27/2018 Inactive Levaquin 750 mg tablet RxNorm: 909828 1 Tablet(s) PO QD 09/07/2018 Inactive Levaquin 750 mg tablet RxNorm: 082292 1 Tablet(s) PO QD 09/07/2018 Inactive prednisone 20 mg tablet RxNorm: 694642 2 Tablet(s) PO QAM 08/13/2018 08/19/2018 Inactive Levaquin 500 mg tablet RxNorm: 997540 1 Tablet(s) PO QD 08/11/2018 Inactive fenofibrate micronized 134 mg capsule RxNorm: 777806 TA KE ONE CAPSULE BY MOUTH EVERY DAY 08/10/2018 02/05/2019 Inactive prednisone 20 mg tablet RxNorm: 581475 1 Tablet(s) PO BID 07/16/2018 07/20/2018 Inactive doxycycline hyclate 100 mg capsule RxNorm: 1354474 1 Capsule(s) PO BID 07/13/2018 07/22/2018 Inactive duloxetine 60 mg capsule,delayed release RxNorm: 190472 TAKE ONE CAPSULE BY MOUTH ONCE A DAY 07/08/2018 01/28/2019 Inactive Lasix 40 mg tablet RxNorm: 930102 1 TABLET(S) PO QAM 06/08/201809/05 Inactive potassium chloride ER 20 mEq tablet,extended release(p art/cryst) RxNorm: 7140433 1 TABLET(S) PO QD 06/08/2018 09/05/2018 Inactive metformin ER 1,000 mg tablet,extended release 24hr RxNorm: 1 093585 TAKE TWO TABLETS (1000MG) BY MOUTH TWO TIMES A DAY 06/01/2018 11/27/2018 Inacti ve Benicar HCT 40 mg-25 mg tablet RxNorm: 909210 TAKE ONE TABLET BY MOUTH ONCE DAILY 05/11/2018 03/28/2019 Inactive Zocor 40 mg tablet RxNorm: 497251 TAKE ONE TABLET BY M OUTH EVERY NIGHT AT BEDTIME 05/11/2018 06/20/2019 Inactive Trelegy Ellipta 100 mcg-62.5 mcg-25 mcg powder for inhalatio n RxNorm: 6615153 1 PUFF(S) INH QD 04/06/2018 07/04/2018 Inactive diltiazem ER 360 mg capsule,24 hr,extended release RxNorm: 8 63906 1 Capsule(s) PO QHS replaces 300mg dose 03/30/2018 09/25/2018 Inactive Trelegy Ellipta 100 mcg-62.5 mcg-25 mcg powder for inhalatio n RxNorm: 5528593 1 Puff(s) INH QD 02/24/2018 02/23/2018 Inactive Trelegy Ellipta 100 mcg-62.5 mcg-25 mcg powder for inhalatio n RxNorm: 7377276 1 Puff(s) INH QD 02/24/2018 02/23/2018 Inactive Trelegy Ellipta 100 mcg-62.5 mcg-25 mcg powder for inhalatio n RxNorm: 7959502 1 Puff(s) INH QD 02/24/2018 04/05/2018 Inactive Lasix 40 mg tablet RxNorm: 152050 1 Tablet(s) PO QAM 02/10/201803/11 Inactive potassium chloride ER 20 mEq tablet,extended release(p art/cryst) RxNorm: 1084750 1 Tablet(s) PO QD 02/10/2018 03/11/2018 Inactive fenofibrate micronized 134 mg capsule RxNorm: 304716 1 Capsule( s) PO QD 01/30/2018 07/28/2018 Inactive metoprolol succinate ER 100 mg tablet,extended release 24 hr RxNorm: 980697 TAKE ONE TABLET BY MOUTH TWICE A DAY 12/30/2017 09/25/2018 Inactive metformin ER 1,000 mg tablet,extended release 24hr RxNorm: 1 821716 1 Tablet(s) PO BID 11/17/2017 05/15/2018 Inactive [SAVINGS FOR NON -COVERED DRUGS -- BIN:117728, PCN: ASPROD1, Group: XXXXX, ID# [id number], Questions: . THIS IS NOT INSURANCE.] Benicar HCT 40 mg-25 mg tablet RxNorm: 092583 1 Tablet(s) PO QD 05/10/2018 Inactive [SAVINGS FOR NON-COVERED JESU GS -- BIN:693992, PCN: ASPROD1, Group: XXXXX, ID# [id number], Questions: . THIS IS NOT INSURANCE.] Bactroban 2 % topical cream RxNorm: 776038 Application TOP BID 10/2409/02/2018 Inactive clindamycin HCl 300 mg capsule RxNorm: 458389 2 Capsule(s) PO TID 0 11/05/2017 11/18/2017 Inactive duloxetine 60 mg capsule,delayed release RxNorm: 075452 Capsule(s) TAKE ONE CAPSULE BY MOUTH ONCE DAILY 09/24/2017 09/23/2017 Inactive triamcinolone acetonide 0.1 % topical ointment RxNorm: 2646067 1 TOP BID 09/09/2017 11/04/2017 Inactive Bactrim DS 800 mg-160 mg tablet RxNorm: 165464 1 Tablet(s) PO BID 0 08/07/2017 08/13/2017 Inactive metronidazole 500 mg tablet RxNorm: 082206 1 Tablet(s) PO BID 08/0708/13/2017 Inactive diltiazem ER 360 mg capsule,24 hr,extended release RxNorm: 8 37097 1 Capsule(s) PO QHS replaces 300mg dose 08/04/2017 01/30/2018 Inactive fenofibrate micronized 134 mg capsule RxNorm: 666321 1 Capsule( s) PO QD 07/21/2017 01/30/2018 Inactive Zocor 40 mg tablet RxNorm: 968876 1 Tablet(s) PO QHS 07/21/201705/10 Inactive GB duloxetine 60 mg capsule,delayed release RxNorm: 072164 Capsule(s) TAKE ONE CAPSULE BY MOUTH ONCE DAILY 06/24/2017 09/24/2017 Inactive Cleocin HCl 300 mg capsule RxNorm: 222835 2 Capsule(s) PO BID 06/0206/08/2017 Inactive acyclovir 800 mg tablet RxNorm: 286439 1 Tablet(s) PO 5x day 201706/08/2017 Inactive diltiazem ER 300 mg capsule,24 hr,extended release RxNorm: 8 18307 1 Capsule(s) PO QHS replaces 240mg dose 05/05/2017 08/03/2017 Inactive ipratropium-albuterol 0.5 mg-3 mg(2.5 mg base)/3 mL ne bulization soln RxNorm: 1706924 1 Unit Dose INH Q4H as needed 05/05/2017 01/04/2019 Inactive metformin ER 1,000 mg tablet,extended release 24hr RxNorm: 1 061628 1 Tablet(s) PO BID 04/28/2017 11/17/2017 Inactive [SAVINGS FOR NON -COVERED DRUGS -- BIN:614387, PCN: ASPROD1, Group: XXXXX, ID# [id number], Questions: . THIS IS NOT INSURANCE.] diltiazem ER (XR/XT) 240 mg capsule,extended release 2 4 hr, controlled RxNorm: 921516 TAKE ONE CAPSULE BY MOUTH EVERY DAY 04/15/2017 05/04/2017 Inact avani prednisone 20 mg tablet RxNorm: 566297 1 Tablet(s) PO QD 04/10/2017 1 06/14/2016 Inactive Breo Ellipta 200 mcg-25 mcg/dose powder for inhalation RxNor m: 8797907 1 Puff(s) INH QD 04/10/2017 02/09/2018 Inactive Breo Ellipta 200 mcg-25 mcg/dose powder for inhalation RxNor m: 0742259 1 Puff(s) INH QD 04/10/2017 04/09/2017 Inactive Levaquin 500 mg tablet RxNorm: 670463 1 Tablet(s) PO QD 04/10/2017 Inactive metoprolol succinate ER 100 mg tablet,extended release 24 hr RxNorm: 289384 TAKE ONE TABLET BY MOUTH TWICE A DAY 03/24/2017 12/18/2017 Inactive fenofibrate micronized 134 mg capsule RxNorm: 811709 1 Capsule( s) PO QD 01/16/2017 07/21/2017 Inactive Benicar HCT 40 mg-25 mg tablet RxNorm: 545866 1 Tablet(s) PO QD 11/17/2017 Inactive [SAVINGS FOR NON-COVERED JESU GS -- BIN:490708, PCN: ASPROD1, Group: XXXXX, ID# [id number], Questions: . THIS IS NOT INSURANCE.] metoprolol succinate ER 100 mg tablet,extended release 24 hr RxNorm: 312406 1 Tablet(s) PO BID 10/16/2016 03/23/2017 Inactive diltiazem ER (XR/XT) 240 mg capsule,extended release 2 4 hr, controlled RxNorm: 048565 1 Capsule(s) PO QD 10/16/2016 04/13/2017 Inactive [SAVINGS FOR NON- COVERED DRUGS -- BIN:288876, PCN: ASPROD1, Group: XXXXX, ID# [id number], Questions: . THIS IS NOT INSURANCE.] metformin ER 1,000 mg tablet,extended release 24hr RxNorm: 8 74452 1 Tablet(s) PO BID 10/16/2016 04/28/2017 Inactive [SAVINGS FOR NON -COVERED DRUGS -- BIN:523723, PCN: ASPROD1, Group: XXXXX, ID# [id number], Questions: . THIS IS NOT INSURANCE.] Zocor 40 mg tablet RxNorm: 917538 1 Tablet(s) PO QHS 10/16/201607/21 Inactive GB Singulair 10 mg tablet RxNorm: 648623 Tablet(s) 1 TABLET(S) PO QHS 08/27/2016 09/02/2018 Inactive prednisone 20 mg tablet RxNorm: 138401 1 Tablet(s) PO QD 08/27/2016 0 08/31/2016 Inactive ipratropium-albuterol 0.5 mg-3 mg(2.5 mg base)/3 mL ne bulization soln RxNorm: 9748133 1 Unit Dose INH Q4H as needed 08/27/2016 05/04/2017 Inactive metoprolol succinate ER 100 mg tablet,extended release 24 hr RxNorm: 728319 TAKE ONE TABLET BY MOUTH TWICE A DAY 08/05/2016 10/16/2016 Inactive duloxetine 60 mg capsule,delayed release RxNorm: 104931 TAKE ONE CAPSULE BY MOUTH ONCE DAILY 08/05/2016 06/24/2017 Inactive prednisone 20 mg tablet RxNorm: 734107 1 Tablet(s) PO QD 06/14/2016 0 06/18/2016 Inactive ipratropium-albuterol 0.5 mg-3 mg(2.5 mg base)/3 mL ne bulization soln RxNorm: 4949805 1 Unit Dose INH Q4H as needed 06/13/2016 08/26/2016 Inactive Levaquin 500 mg tablet RxNorm: 832827 1 Tablet(s) PO QD 06/13/2016 Inactive metoprolol succinate ER 100 mg tablet,extended release 24 hr RxNorm: 541782 1 Tablet(s) PO BID replaces 50mg dose 05/14/2016 07/12/2016 Inactive metoprolol succinate ER 50 mg tablet,extended release 24 hr RxNorm: 928691 1 Tablet(s) PO BID 04/29/2016 05/13/2016 Inactive prednisone 20 mg tablet RxNorm: 961728 1 Tablet(s) PO BID 04/22/2016 04/21/2016 Inactive prednisone 20 mg tablet RxNorm: 859547 1 Tablet(s) PO BID 04/22/2016 04/28/2016 Inactive Singulair 10 mg tablet RxNorm: 881351 Tablet(s) 1 TABLET(S) PO QHS 04/01/2016 08/26/2016 Inactive metoprolol succinate ER 25 mg tablet,extended release 24 hr RxNorm: 344966 1 Tablet(s) PO QHS for blood pressure 04/01/2016 05/13/2016 Inactive fenofibrate micronized 134 mg capsule RxNorm: 914234 TA KE ONE CAPSULE BY MOUTH DAILY 01/25/2016 01/16/2017 Inactive duloxetine 60 mg capsule,delayed release RxNorm: 368691 TAKE ONE CAPSULE BY MOUTH ONCE DAILY 01/25/2016 08/04/2016 Inactive Zocor 40 mg tablet RxNorm: 922855 TAKE ONE TABLET BY MOUTH AT B EDTIME 11/13/2015 10/16/2016 Inactive GB metformin ER 1,000 mg tablet,extended release 24hr RxNorm: 8 93586 1 Tablet(s) PO BID 10/26/2015 10/16/2016 Inactive [SAVINGS FOR NON -COVERED DRUGS -- BIN:773745, PCN: ASPROD1, Group: XXXXX, ID# [id number], Questions: . THIS IS NOT INSURANCE.] Benicar HCT 40 mg-25 mg tablet RxNorm: 533509 1 Tablet(s) PO QD 06/201511/11/2016 Inactive [SAVINGS FOR NON-COVERED JESU GS -- BIN:405647, PCN: ASPROD1, Group: XXXXX, ID# [id number], Questions: . THIS IS NOT INSURANCE.] diltiazem ER (XR/XT) 240 mg capsule,extended release,control led RxNorm: 840621 1 Capsule(s) PO QD 10/26/2015 10/15/2016 Inactive [SAVINGS FOR NO N-COVERED DRUGS -- BIN:492700, PCN: ASPROD1, Group: XXXXX, ID# [id number], Questions: . THIS IS NOT INSURANCE.] Singulair 10 mg tablet RxNorm: 574832 1 TABLET(S) PO QHS 09/18/2015 1 05/31/2015 Inactive Viagra 100 mg tablet RxNorm: 100723 1 Tablet(s) PO as needed 201511/23/2018 Inactive Singulair 10 mg tablet RxNorm: 280371 1 Tablet(s) PO QHS 08/16/2015 0 08/15/2015 Inactive Singulair 10 mg tablet RxNorm: 866688 1 Tablet(s) PO QHS 08/16/2015 0 09/14/2015 Inactive duloxetine 60 mg capsule,delayed release RxNorm: 305829 1 Capsule(s) PO QD replaces fluoxetine 08/14/2015 01/24/2016 Inactive ipratropium-albuterol 0.5 mg-3 mg(2.5 mg base)/3 mL ne bulization soln RxNorm: 0607654 1 Unit Dose INH Q4H as needed 08/14/2015 06/12/2016 Inactive prednisone 20 mg tablet RxNorm: 088016 Take 3 tabs PO o nce daily x 3 days, then 2 tabs PO once daily x 3 days and then 1 tab PO once daily x 3 days 08/09/2015 08/13/2015 Inactive Symbicort 160 mcg-4.5 mcg/actuation HFA aerosol inhaler RxNo rm: 8579639 2 Puff(s) INH BID 08/09/2015 08/13/2015 Inactive Zocor 40 mg tablet RxNorm: 921301 1 Tablet(s) PO QHS 05/23/201511/11 Inactive [AttnRPh: Saving apply/adjudicate RxGRP: SG20 RxBIN:[id number] RxPCN:HT ID#:[id number]] Benicar HCT 40 mg-25 mg tablet RxNorm: 666859 1 Tablet(s) PO QD 10/26/2015 Inactive [SAVINGS FOR NON-COVERED JESU GS -- BIN:871419, PCN: ASPROD1, Group: XXXXX, ID# [id number], Questions: . THIS IS NOT INSURANCE.] diltiazem ER (XR/XT) 240 mg capsule,extended release,control led RxNorm: 069628 1 Capsule(s) PO QD 04/24/2015 10/20/2015 Inactive [SAVINGS FOR NO N-COVERED DRUGS -- BIN:220245, PCN: ASPROD1, Group: XXXXX, ID# [id number], Questions: . THIS IS NOT INSURANCE.] fluoxetine 40 mg capsule RxNorm: 202821 1 Capsule(s) PO QD 04/24/20 15 08/13/2015 Inactive [SAVINGS FOR NON-COVERED JESU GS -- BIN:369334, PCN: ASPROD1, Group: XXXXX, ID# [id number], Questions: . THIS IS NOT INSURANCE.] Zocor 40 mg tablet RxNorm: 637211 TABLET(S) 1 TABLET(S) PO QHS 01/2505/23/2015 Inactive [AttnRPh: Saving apply/adjud icate RxGRP:SG20 RxBIN:[id number] RxPCN: ID#:[id number]] metformin ER 1,000 mg tablet,extended release 24hr RxNorm: 8 64342 1 TABLET(S) PO BID 01/29/2015 10/26/2015 Inactive [SAVINGS FOR NON -COVERED DRUGS -- BIN:537164, PCN: ASPROD1, Group: XXXXX, ID# [id number], Questions: . THIS IS NOT INSURANCE.] fenofibrate micronized 134 mg capsule RxNorm: 757582 1 CAPSULE( S) PO QD 01/23/2015 01/17/2016 Inactive fenofibrate micronized 134 mg capsule RxNorm: 600344 1 Capsule( s) PO QD 11/07/2014 01/22/2015 Inactive diltiazem ER (XR/XT) 240 mg capsule,extended release,control led RxNorm: 203439 1 Capsule(s) PO QD 10/24/2014 04/24/2015 Inactive [SAVINGS FOR NO N-COVERED DRUGS -- BIN:365387, PCN: ASPROD1, Group: XXXXX, ID# [id number], Questions: . THIS IS NOT INSURANCE.] Benicar HCT 40 mg-25 mg tablet RxNorm: 143032 1 Tablet(s) PO QD 05/201404/24/2015 Inactive [SAVINGS FOR NON-COVERED JESU GS -- BIN:351104, PCN: ASPROD1, Group: XXXXX, ID# [id number], Questions: . THIS IS NOT INSURANCE.] fluoxetine 40 mg capsule RxNorm: 932886 1 Capsule(s) PO QD 10/25/19 15 04/24/2015 Inactive [SAVINGS FOR NON-COVERED JESU GS -- BIN:065254, PCN: ASPROD1, Group: XXXXX, ID# [id number], Questions: . THIS IS NOT INSURANCE.] azithromycin 500 mg tablet RxNorm: 977327 1 Tablet(s) PO QD 015 09/27/2014 Inactive [SAVINGS FOR NON-COVERED JESU GS -- BIN:[id number], PCN: [id number], Group: XXXXX, ID# [id number], Questions: . THIS IS NOT INSURANCE.] albuterol sulfate 2.5 mg/3 mL (0.083 %) solution for n ebulization RxNorm: 915385 3 Milliliter(s) INH ONE VIAL VIA NEBULIZER EVERY 4 HOURS 015 11/19/2014 Inactive [AttnRPh: Saving apply/adjudicate RxGRP: SG20 RxBIN:[id number] RxPCN: ID#:[id number]] Zocor 40 mg tablet RxNorm: 749530 TABLET(S) 1 TABLET(S ) PO QHS 1 TABLET(S) PO QHS 09/04/2014 02/21/2015 Inactive [AttnRPh: Saving apply/adjudicate RxGRP:SG20 RxBIN:[id number] RxPCN:HT ID#:[id number]] metformin ER 1,000 mg tablet,extended release 24hr RxNorm: 8 73537 1 Tablet(s) PO BID 08/04/2014 01/28/2015 Inactive [SAVINGS FOR NON -COVERED DRUGS -- BIN:[id number], PCN: ASPROD1, Group: XXXXX, ID# [id number], Questions: . THIS IS NOT INSURANCE.] Bromfed DM 2 mg-30 mg-10 mg/5 mL syrup RxNorm: 5491882 1 -2 Teaspoon(s) PO Q4H as needed for cough 06/10/2014 06/19/2014 Inactive [SAVINGS FOR UN INSURED PATIENTS -- BIN:[id number], PCN: ASPROD1, Group: [id number], ID# [id number], Process claim through [employer], for questions: . THIS IS NOT INSURANCE.] Augmentin 875 mg-125 mg tablet RxNorm: 348203 1 Tablet(s) PO Q12H 0 06/10/2014 06/19/2014 Inactive [AttnRPh: Saving apply/adjud icate RxGRP:SG20 RxBIN:[id number] RxPCN: ID#:[id number]] Zocor 40 mg tablet RxNorm: 999534 Tablet(s) 1 TABLET(S ) PO QHS 1 TABLET(S) PO QHS 05/25/2014 08/22/2014 Inactive [AttnRPh: Saving apply/adjudicate RxGRP:SG20 RxBIN:[id number] RxPCN:HT ID#:[id number]] fluoxetine 40 mg capsule RxNorm: 594180 1 Capsule(s) PO QD 04/29/20 14 10/24/2014 Inactive [AttnRPh: Saving apply/adjud icate RxGRP:SG20 RxBIN:[id number] RxPCN:HT ID#:[id number]] diltiazem ER (XR/XT) 240 mg capsule,extended release,control led RxNorm: 357416 1 Capsule(s) PO QD 04/29/2014 10/24/2014 Inactive [AttnRPh: Leonelin g apply/adjudicate RxGRP:SG20 RxBIN:[id number] RxPCN:HT ID#:[id number]] Benicar HCT 40 mg-25 mg tablet RxNorm: 467175 1 Tablet(s) PO QD 09/201310/24/2014 Inactive [AttnRPh: Saving apply/adjud icate RxGRP:SG20 RxBIN:[id number] RxPCN:HT ID#:[id number]] Zocor 40 mg tablet RxNorm: 344185 1 TABLET(S) PO QHS 1 TABLET(S ) PO QHS 03/07/2014 05/25/2014 Inactive [AttnRPh: Saving chelsie ly/adjudicate RxGRP:SG20 RxBIN:[id number] RxPCN:HT ID#:[id number]] Zocor 40 mg tablet RxNorm: 810316 1 Tablet(s) PO QHS 1 TABLET(S ) PO QHS 12/06/2013 03/05/2014 Inactive [AttnRPh: Saving chelsie ly/adjudicate RxGRP:SG20 RxBIN:[id number] RxPCN:HT ID#:[id number]] diltiazem ER (XR/XT) 240 mg capsule,extended release,control led RxNorm: 582319 1 Capsule(s) PO QD 10/25/2013 04/22/2014 Inactive [AttnRPh: Savin g apply/adjudicate RxGRP:SG20 RxBIN:[id number] RxPCN:HT ID#:[id number]] fluoxetine 40 mg capsule RxNorm: 046332 1 Capsule(s) PO QD 10/26/19 14 04/22/2014 Inactive [AttnRPh: Saving apply/adjud icate RxGRP:SG20 RxBIN:[id number] RxPCN:HT ID#:[id number]] Zocor 40 mg tablet RxNorm: 198861 1 Tablet(s) PO QHS 1 TABLET(S ) PO QHS 09/13/2013 12/06/2013 Inactive metformin ER 1,000 mg tablet,extended release 24hr RxNorm: 8 36754 Tablet(s) PO TAKE 1 TABLET BY MOUTH TWICE DAILY (REPLACES 500MG DOSE) 07/26/201303/2015 Inactive diltiazem ER (XR/XT) 240 mg capsule,extended release,control led RxNorm: 852837 1 Capsule(s) PO QD 05/03/2013 10/25/2013 Inactive fluoxetine 40 mg capsule RxNorm: 224628 1 Capsule(s) PO QD 05/03/20 13 10/25/2013 Inactive Benicar HCT 40 mg-25 mg tablet RxNorm: 271294 1 Tablet(s) PO QD 01/201304/29/2014 Inactive Zocor 40 mg tablet RxNorm: 753295 1 Tablet(s) PO QHS 12/10/201209/13 Inactive fluoxetine 40 mg capsule RxNorm: 370828 1 Capsule(s) PO QD 11/10/19 13 05/03/2013 Inactive diltiazem ER (XR/XT) 240 mg capsule,extended release,control led RxNorm: 775989 1 Capsule(s) PO QD 11/09/2012 05/03/2013 Inactive Benicar HCT 40 mg-25 mg tablet RxNorm: 904553 1 Tablet(s) PO QD 05/03/2013 Inactive metformin ER 1,000 mg tablet,extended release 24hr RxNorm: 8 71695 Tablet(s) PO TAKE 1 TABLET BY MOUTH TWICE DAILY (REPLACES 500MG DOSE) 08/05/201206/2013 Inactive Zocor 40 mg tablet RxNorm: 866017 1 Tablet(s) PO QHS 06/15/201212/09 Inactive fluoxetine 40 mg capsule RxNorm: 463623 1 Capsule(s) PO QD 05/15/20 12 11/08/2012 Inactive Neurontin 600 mg Tab RxNorm: 272566 1 Tablet(s) PO QHS 12/03/2011 Inactive metformin ER 1,000 mg tablet,extended release 24hr RxNorm: 8 76447 1 Tablet(s) PO BID replaces 500mg dose 12/03/2011 07/26/2013 Inactive Zocor 40 mg tablet RxNorm: 900236 1 Tablet(s) PO QHS 12/03/201106/15 Inactive fluoxetine 20 mg capsule RxNorm: 497481 1 Capsule(s) PO QD 12/03/19 12 05/24/2012 Inactive diltiazem ER (XR/XT) 240 mg capsule,extended release,control led RxNorm: 132983 1 Capsule(s) PO QD 11/15/2011 11/09/2012 Inactive Benicar HCT 40 mg-25 mg tablet RxNorm: 454960 1 Tablet(s) PO QD 02/16/2012 Inactive metformin ER 500 mg 24 hr Tab RxNorm: 210894 1 Tablet(s) PO BID 12/02/2011 Inactive Zocor 40 mg Tab RxNorm: 144068 1 Tablet(s) PO QHS 05/30/2011 11/25/19 12 Inactive fluoxetine 20 mg Cap RxNorm: 254708 1 Capsule(s) PO QD 05/28/2011 Inactive Neurontin 600 mg Tab RxNorm: 743301 1 Tablet(s) PO QHS 05/28/2011 Inactive Neurontin 600 mg Tab RxNorm: 210879 1 Tablet(s) PO QHS 02/22/201106/2011 Inactive Neurontin 600 mg Tab RxNorm: 741374 1 Tablet(s) PO QHS 01/14/2011 Inactive Neurontin 300 mg Cap RxNorm: 736369 1 Capsule(s) PO QHS 01/14/2011 Inactive Neurontin 600 mg Tab RxNorm: 589362 1 Tablet(s) PO QHS 01/14/2011 Inactive Medrol (Vipul) 4 mg Tabs in a Dose Pack RxNorm: 810720 Tablet(s) PO 0 01/02/2011 08/28/2011 Inactive as directed fluoxetine 20 mg Cap RxNorm: 131291 1 Capsule(s) PO QD 12/10/201006/2011 Inactive Zocor 40 mg Tab RxNorm: 659079 1 Tablet(s) PO QHS 12/03/2010 05/29/19 12 Inactive Neurontin 300 mg Cap RxNorm: 607993 1 Capsule(s) PO QHS 12/03/2010 Inactive Septra DS 800 mg-160 mg Tab RxNorm: 752165 1 Tablet(s) PO BID 11/2912/08/2010 Inactive diltiazem ER (XR/XT) 240 mg Continuous Release Cap RxNorm: 8 97470 1 Capsule(s) PO QD 11/20/2010 11/15/2011 Inactive Neurontin 300 mg Cap RxNorm: 561925 1 Capsule(s) PO QHS 11/06/2010 Inactive Neurontin 300 mg Cap RxNorm: 629881 1 Capsule(s) PO QHS 11/06/2010 Inactive Celebrex 200 mg Cap RxNorm: 276965 1 Capsule(s) PO BID 10/24/2010 Inactive fluoxetine 20 mg Cap RxNorm: 286719 1 Capsule(s) PO QD 06/07/201003/2011 Inactive Zocor 40 mg Tab RxNorm: 182388 1 Tablet(s) PO QHS 06/05/2010 12/02/19 11 Inactive Benicar HCT 40 mg-25 mg Tab RxNorm: 644031 1 Tablet(s) PO QD 200908/21/2011 Inactive Diltiazem 240 mg Continuous Release Cap RxNorm: 267286 1 Capsul e(s) PO QD 11/09/2009 09/02/2018 Inactive Avelox 400 mg Tab RxNorm: 648629 1 Tablet(s) PO QD 08/22/2009 010 Inactive ProAir HFA 90 mcg/actuation aerosol inhaler RxNorm: 668648 2 Puff(s) INH Q4H as needed No Start Date Active tramadol 50 mg tablet RxNorm: 481205 1-2 Tablet(s) PO TID as ne eded for pain No Start Date Active Tylenol Arthritis 650 mg Tab RxNorm: 4750282 2 Tablet(s) PO QD No Sta rt Date Active Celebrex 200 mg Cap RxNorm: 396626 1 Capsule(s) PO BID No Start Date 08/08/2015 Inactive Medrol (Vipul) 4 mg Tabs in a Dose Pack RxNorm: 560254 Tablet(s) PO N o Start Date 01/01/2011 Inactive as directed Promethazine-DM 6.25 mg-15 mg/5 mL Syrup RxNorm: 323247 1-2 Teaspoon(s) PO Q4H prn cough No Start Date 08/28/2011 Inactive Claritin 10 mg tablet RxNorm: 270641 1 Tablet(s) PO QD No Start Date 08/08/2015 Inactive Rztueuuweo-[id number] Oral RxNorm: Oral No Start Da te 03/28/2019 Inactive Breo Ellipta 200 mcg-25 mcg/dose powder for inhalation RxNor m: 3154648 1 Puff(s) INH QD No Start Date 04/09/2017 Inactive metformin 500 mg Tab RxNorm: 796008 1 Tablet(s) PO QD No Start Date 0 08/17/2011 Inactive Diltiazem 240 mg Continuous Release Cap RxNorm: 778657 1 Capsul e(s) PO BID No Start Date 11/08/2009 Inactive fluoxetine 20 mg Cap RxNorm: 078819 1 Capsule(s) PO QD No Start Date 06/07/2010 Inactive Multivitamin & Mineral Formula Oral RxNorm: Oral No Start Da te 03/28/2019 Inactive Medrol (Vipul) 4 mg tablets in a dose pack RxNorm: 749647 Tablet(s) PO as directed No Start Date 05/28/2012 Inactive Fish Oil 1,000 mg Cap RxNorm: 1 Capsule(s) PO QD No Start Date 07/2018 Inactive Nexium 40 mg Cap RxNorm: 927897 1 Capsule(s) PO QD No Start Date 07/24 Inactive fluticasone 50 mcg/actuation nasal spray,suspension RxNorm: 4894111 2 [place] NASAL QD to each nostril No Start Date 08/03/2017 Inactive Viagra 100 mg tablet RxNorm: 603078 1 Tablet(s) PO as needed No Sta rt Date 09/17/2015 Inactive prednisone 20 mg tablet RxNorm: 581905 1 Tablet(s) PO B ID for 4 days then 1 po daily for 4 days No Start Date 11/23/2018 Inactive Benicar HCT 40 mg-25 mg Tab RxNorm: 568818 1 Tablet(s) PO QD No Sta rt Date 11/08/2009 Inactive Medication Administered No Medication Administered data Immunizations Vaccine Codes Date Status Influenza CVX: 135 03/04/2019 Complete Influenza CVX: 135 03/04/2019 Complete Pneumococcal CVX: 33 03/04/2019 Complete Pneumococcal CVX: 33 03/04/2019 Complete Influenza CVX: 135 02/10/2018 Complete Pneumococcal CVX: 133 02/10/2018 Complete Influenza CVX: 135 03/28/2017 Complete Results Observation Observation Code Item Item Code Result Date S ervice Location MICROALBUMIN URINE RANDOM 89854 MICRL MG/L 5.8 MG/L 03/2011 Unknown MICROALBUMIN URINE RANDOM 50886 XM.ALB/CRE 5.2 MG/GCR Unknown MICROALBUMIN URINE RANDOM 95500 CREAT MG/D 111 MG/DL 03/2011 Unknown MICROALBUMIN URINE RANDOM 84644 CRE/100 1.11 G/L 12/24 Unknown Procedures Procedure Codes Date FLU VACC PRSV FREE INC ANTIG 65 AND OLDER CPT-4: 30059 03/04/2019 ADMIN PNEUMOCOCCAL VACCINE CPT-4: G0009 03/04/2019 ADMIN INFLUENZA VIRUS VAC CPT-4: G0008 03/04/2019 FLU VACC PRSV FREE INC ANTIG 65 AND OLDER CPT-4: 09876 03/04/2019 PNEUMOCOCCAL VACC 23 [facility] IM CPT-4: 71518 03/04/2019 THER/PROPH/DIAG INJ SC/IM CPT-4: 23768 08/11/2018 TRIAMCINOLONE ACET INJ NOS CPT-4: J3301 08/11/2018 DEXAMETHASONE SODIUM PHOS CPT-4: J1100 08/11/2018 THER/PROPH/DIAG INJ SC/IM CPT-4: 88623 07/16/2018 METHYLPREDNISOLONE INJECTION CPT-4: J2930 07/16/2018 INFLUENZA ASSAY W/OPTIC CPT-4: 87004 07/16/2018 THER/PROPH/DIAG INJ SC/IM CPT-4: 25068 07/13/2018 TRIAMCINOLONE ACET INJ NOS CPT-4: J3301 07/13/2018 THER/PROPH/DIAG INJ SC/IM CPT-4: 12009 05/04/2018 METHYLPREDNISOLONE INJECTION CPT-4: J2930 05/04/2018 FLU VACC PRSV FREE INC ANTIG 65 AND OLDER CPT-4: 05373 02/10/2018 PNEUMOCOCCAL VACC 13 RAYMON IM CPT-4: 01551 02/10/2018 ADMIN INFLUENZA VIRUS VAC CPT-4: G0008 02/10/2018 ADMIN PNEUMOCOCCAL VACCINE CPT-4: G0009 02/10/2018 THER/PROPH/DIAG INJ SC/IM CPT-4: 57867 09/09/2017 TRIAMCINOLONE ACET INJ NOS CPT-4: J3301 09/09/2017 ALBUTEROL NON-COMP UNIT CPT-4: J7613 04/10/2017 AIRWAY INHALATION TREATMENT CPT-4: 39926 04/10/2017 PRESCRIP TRANSMIT VIA ERX SY CPT-4: G8553 04/10/2017 FLU VACC PRSV FREE INC ANTIG 65 AND OLDER CPT-4: 48856 03/28/2017 ADMIN INFLUENZA VIRUS VAC CPT-4: G0008 03/28/2017 PRESCRIP TRANSMIT VIA ERX SY CPT-4: G8553 08/27/2016 PRESCRIP TRANSMIT VIA ERX SY CPT-4: G8553 06/14/2016 ALBUTEROL NON-COMP UNIT CPT-4: J7613 06/13/2016 AIRWAY INHALATION TREATMENT CPT-4: 01829 06/13/2016 PRESCRIP TRANSMIT VIA ERX SY CPT-4: G8553 06/13/2016 PRESCRIP TRANSMIT VIA ERX SY CPT-4: G8553 05/14/2016 PRESCRIP TRANSMIT VIA ERX SY CPT-4: G8553 04/29/2016 PRESCRIP TRANSMIT VIA ERX SY CPT-4: G8553 04/01/2016 PRESCRIP TRANSMIT VIA ERX SY CPT-4: G8553 08/14/2015 DEXAMETHASONE SODIUM PHOS CPT-4: J1100 08/09/2015 PRESCRIP TRANSMIT VIA ERX SY CPT-4: G8553 08/09/2015 PRESCRIP TRANSMIT VIA ERX SY CPT-4: G8553 11/07/2014 THER/PROPH/DIAG INJ SC/IM CPT-4: 69132 09/21/2014 METHYLPREDNISOLONE INJECTION CPT-4: J2930 09/21/2014 PRESCRIP TRANSMIT VIA ERX SY CPT-4: G8553 09/21/2014 PRESCRIP TRANSMIT VIA ERX SY CPT-4: G8553 06/10/2014 URINALYSIS NONAUTO W/O SCOPE CPT-4: 87178 06/01/2012 PRESCRIP TRANSMIT VIA ERX SY CPT-4: G8553 05/25/2012 PRESCRIP TRANSMIT VIA ERX SY CPT-4: G8553 12/03/2011 CUR TOBACCO NON-USER CPT-4: G8457 05/30/2011 PRESCRIP TRANSMIT VIA ERX SY CPT-4: G8553 05/30/2011 URINALYSIS NONAUTO W/O SCOPE CPT-4: 63596 01/01/2011 URINE CULTURE/ COLONY COUNT CPT-4: 48998 01/01/2011 CUR TOBACCO NON-USER CPT-4: G8457 01/01/2011 PRESCRIP TRANSMIT VIA ERX SY CPT-4: G8553 11/29/2010 PRESCRIP TRANSMIT VIA ERX SY CPT-4: G8553 06/05/2010 Vital Signs Date Vital 12/01/2019 Blood Pressure 1: 146/70 Code: 8480-6 Heart Rate 1: 56 bpm Respiratory Rate: 36 bpm Weight: 312 lbs 08/30/2019 Blood Pressure 1: 150/82 Code: 8480-6 Heart Rate 1: 84 bpm Respiratory Rate: 26 bpm SpO2: 97% Temperature: 36.6 (C) / 97.8 (F) We ight: 322 lbs 08/10/2019 Blood Pressure 1: 146/82 Code: 8480-6 Heart Rate 1: 60 bpm Respiratory Rate: 36 bpm SpO2: 96% Temperature: 36.3 (C) / 97.4 (F) We ight: 319 lbs 07/06/2019 Blood Pressure 1: 132/70 Code: 8480-6 Heart Rate 1: 56 bpm Respiratory Rate: 26 bpm SpO2: 99% Temperature: 36.9 (C) / 98.5 (F) We ight: 313 lbs 05/10/2019 Blood Pressure 1: 128/70 Code: 8480-6 Heart Rate 1: 56 bpm Respiratory Rate: 28 bpm SpO2: 98% Temperature: 37.1 (C) / 98.7 (F) We ight: 313 lbs 03/29/2019 Blood Pressure 1: 132/78 Code: 8480-6 Heart Rate 1: 84 bpm Respiratory Rate: 24 bpm SpO2: 98% Temperature: 36.6 (C) / 97.8 (F) We ight: 306 lbs 01/05/2019 Blood Pressure 1: 134/80 Code: 8480-6 Heart Rate 1: 60 bpm Respiratory Rate: 28 bpm SpO2: 92% Temperature: 36.8 (C) / 98.2 (F) We ight: 323 lbs 12/09/2018 Blood Pressure 1: 130/70 Code: 8480-6 Heart Rate 1: 58 bpm Respiratory Rate: 24 bpm SpO2: 94% Temperature: 35.8 (C) / 96.5 (F) We ight: 323 lbs 11/24/2018 Blood Pressure 1: 132/80 Code: 8480-6 Heart Rate 1: 60 bpm Respiratory Rate: 26 bpm SpO2: 92% Temperature: 37.1 (C) / 98.8 (F) We ight: 327 lbs 09/16/2018 Blood Pressure 1: 150/82 Code: 8480-6 Heart Rate 1: 59 bpm Respiratory Rate: 24 bpm SpO2: 94% Temperature: 35.9 (C) / 96.7 (F) We ight: 327 lbs 09/03/2018 Blood Pressure 1: 130/80 Code: 8480-6 Heart Rate 1: 60 bpm Respiratory Rate: 22 bpm SpO2: 95% Temperature: 37.0 (C) / 98.6 (F) We ight: 323 lbs 08/27/2018 Blood Pressure 1: 130/78 Code: 8480-6 Heart Rate 1: 60 bpm Respiratory Rate: 18 bpm SpO2: 93% Temperature: 35.6 (C) / 96.1 (F) We ight: 326 lbs 08/13/2018 Blood Pressure 1: 140/76 Code: 8480-6 Heart Rate 1: 54 bpm Respiratory Rate: 24 bpm SpO2: 93% Temperature: 36.5 (C) / 97.7 (F) We ight: 331 lbs 08/11/2018 Blood Pressure 1: 150/80 Code: 8480-6 Heart Rate 1: 54 bpm Respiratory Rate: 22 bpm SpO2: 94% Temperature: 35.8 (C) / 96.4 (F) We ight: 330 lbs 07/16/2018 Blood Pressure 1: 156/80 Code: 8480-6 Heart Rate 1: 62 bpm Respiratory Rate: 24 bpm SpO2: 92% Temperature: 35.7 (C) / 96.3 (F) We ight: 329 lbs 07/13/2018 Blood Pressure 1: 108/70 Code: 8480-6 Heart Rate 1: 58 bpm Respiratory Rate: 24 bpm SpO2: 95% Temperature: 36.4 (C) / 97.6 (F) We ight: 328 lbs 06/03/2018 Blood Pressure 1: 114/68 Code: 8480-6 BMI: 43.5 Code: 33579-9 Heart Rate 1: 52 bpm Height: 6'1" Respiratory Rate: 22 bpm SpO2: 94% Tempera ture: 36.6 (C) / 97.9 (F) Weight: 330 lbs 05/04/2018 Blood Pressure 1: 170/96 Code: 8480-6 Heart Rate 1: 64 bpm Respiratory Rate: 24 bpm SpO2: 92% Temperature: 36.1 (C) / 96.9 (F) We ight: 325 lbs 03/03/2018 Blood Pressure 1: 130/72 Code: 8480-6 Heart Rate 1: 64 bpm Respiratory Rate: 22 bpm SpO2: 94% Temperature: 37.2 (C) / 99.0 (F) We ight: 321 lbs 02/17/2018 Blood Pressure 1: 136/72 Code: 8480-6 BMI: 42.7 Code: 80727-7 Heart Rate 1: 60 bpm Height: 6'1" Respiratory Rate: 22 bpm SpO2: 95% Tempera ture: 37.1 (C) / 98.7 (F) Weight: 324 lbs 02/10/2018 Blood Pressure 1: 146/78 Code: 8480-6 BMI: 42.4 Code: 76887-2 Heart Rate 1: 64 bpm Height: 6'1" Respiratory Rate: 22 bpm SpO2: 95% Tempera ture: 36.5 (C) / 97.7 (F) Weight: 321 lbs 11/05/2017 Blood Pressure 1: 128/84 Code: 8480-6 BMI: 42.9 Code: 00089-2 Heart Rate 1: 52 bpm Height: 6'1" Respiratory Rate: 22 bpm SpO2: 95% Tempera ture: 36.3 (C) / 97.3 (F) Weight: 325 lbs 09/09/2017 Blood Pressure 1: 162/90 Code: 8480-6 BMI: 42.5 Code: 51387-0 Heart Rate 1: 60 bpm Height: 6'1" Respiratory Rate: 24 bpm SpO2: 95% Tempera ture: 36.4 (C) / 97.6 (F) Weight: 322 lbs 08/07/2017 Blood Pressure 1: 152/90 Code: 8480-6 BMI: 42.2 Code: 93779-7 Heart Rate 1: 60 bpm Height: 6'1" Respiratory Rate: 26 bpm SpO2: 94% Tempera ture: 36.6 (C) / 97.8 (F) Weight: 320 lbs 08/04/2017 Blood Pressure 1: 150/86 Code: 8480-6 BMI: 42.7 Code: 54420-8 Heart Rate 1: 64 bpm Height: 6'1" Respiratory Rate: 20 bpm SpO2: 94% Tempera ture: 36.3 (C) / 97.3 (F) Weight: 324 lbs 06/04/2017 Blood Pressure 1: 164/90 Code: 8480-6 Heart Rate 1: 60 bpm Respiratory Rate: 24 bpm SpO2: 94% Temperature: 36.8 (C) / 98.3 (F) 06/02/2017 Blood Pressure 1: 162/80 Code: 8480-6 BMI: 42.9 Code: 27048-9 Heart Rate 1: 66 bpm Height: 6'1" Respiratory Rate: 22 bpm SpO2: 98% Tempera ture: 36.6 (C) / 97.8 (F) Weight: 325 lbs 05/05/2017 Blood Pressure 1: 164/94 Code: 8480-6 BMI: 41.4 Code: 18933-4 Heart Rate 1: 64 bpm Height: 6'1" Respiratory Rate: 22 bpm SpO2: 95% Tempera ture: 36.4 (C) / 97.5 (F) Weight: 314 lbs 04/10/2017 Blood Pressure 1: 136/78 Code: 8480-6 BMI: 42.0 Code: 16254-6 Heart Rate 1: 76 bpm Height: 6'1" Respiratory Rate: 24 bpm SpO2: 92% Tempera ture: 35.9 (C) / 96.7 (F) Weight: 318 lbs 02/03/2017 Blood Pressure 1: 134/82 Code: 8480-6 BMI: 41.7 Code: 19562-5 Heart Rate 1: 72 bpm Height: 6'1" Respiratory Rate: 24 bpm SpO2: 95% Tempera ture: 36.1 (C) / 97.0 (F) Weight: 316 lbs 10/30/2016 Blood Pressure 1: 126/74 Code: 8480-6 BMI: 41.3 Code: 64895-7 Heart Rate 1: 68 bpm Height: 6'1" Respiratory Rate: 20 bpm Temperature: 37 .1 (C) / 98.8 (F) Weight: 313 lbs 08/30/2016 Blood Pressure 1: 146/80 Code: 8480-6 BMI: 41.7 Code: 88939-9 Heart Rate 1: 64 bpm Height: 6'1" Respiratory Rate: 24 bpm SpO2: 94% Tempera ture: 36.6 (C) / 97.8 (F) Weight: 316 lbs 08/27/2016 Blood Pressure 1: 124/78 Code: 8480-6 Heart Rate 1: 66 bpm Height: 6'2" Respiratory Rate: 18 bpm SpO2: 94% Temperature: 36.6 (C) / 97.8 (F) Weight: 07/02/2016 Blood Pressure 1: 126/78 Code: 8480-6 BMI: 41.4 Code: 84263-3 Heart Rate 1: 68 bpm Height: 6'1" Respiratory Rate: 24 bpm SpO2: 94% Tempera ture: 36.6 (C) / 97.8 (F) Weight: 314 lbs 06/14/2016 Blood Pressure 1: 146/82 Code: 8480-6 Heart Rate 1: 80 bpm Respiratory Rate: 20 bpm SpO2: 95% Temperature: 37.3 (C) / 99.2 (F) 06/13/2016 Blood Pressure 1: 146/84 Code: 8480-6 BMI: 40.5 Code: 86822-2 Heart Rate 1: 66 bpm Height: 6'1" Respiratory Rate: 28 bpm SpO2: 93% Tempera ture: 35.8 (C) / 96.4 (F) Weight: 307 lbs 05/14/2016 Blood Pressure 1: 146/90 Code: 8480-6 BMI: 41.2 Code: 54467-1 Heart Rate 1: 68 bpm Height: 6'1" Respiratory Rate: 26 bpm Temperature: 36 .8 (C) / 98.2 (F) Weight: 312 lbs 04/29/2016 Blood Pressure 1: 152/90 Code: 8480-6 BMI: 41.0 Code: 15783-6 Heart Rate 1: 68 bpm Height: 6'1" Respiratory Rate: 26 bpm SpO2: 94% Tempera ture: 36.1 (C) / 96.9 (F) Weight: 311 lbs 04/22/2016 Blood Pressure 1: 152/94 Code: 8480-6 BMI: 40.9 Code: 43145-4 Heart Rate 1: 68 bpm Height: 6'1" Respiratory Rate: 24 bpm SpO2: 94% Tempera ture: 36.2 (C) / 97.2 (F) Weight: 310 lbs 04/01/2016 Blood Pressure 1: 156/78 Code: 8480-6 BMI: 40.6 Code: 66026-3 Heart Rate 1: 84 bpm Height: 6'1" Respiratory Rate: 22 bpm SpO2: 95% Tempera ture: 37.1 (C) / 98.7 (F) Weight: 308 lbs 11/30/2015 Blood Pressure 1: 142/80 Code: 8480-6 BMI: 40.5 Code: 47505-3 Heart Rate 1: 88 bpm Height: 6'1" Respiratory Rate: 22 bpm Temperature: 36 .2 (C) / 97.2 (F) Weight: 307 lbs 08/29/2015 Blood Pressure 1: 132/70 Code: 8480-6 BMI: 40.0 Code: 09124-9 Heart Rate 1: 76 bpm Height: 6'1" Respiratory Rate: 24 bpm SpO2: 96% Tempera ture: 36.7 (C) / 98.0 (F) Weight: 303 lbs 08/14/2015 Blood Pressure 1: 126/80 Code: 8480-6 BMI: 39.4 Code: 04288-1 Heart Rate 1: 92 bpm Height: 6'1" Respiratory Rate: 24 bpm SpO2: 94% Tempera ture: 37.8 (C) / 100.0 (F) Weight: 299 lbs 08/09/2015 Blood Pressure 1: 146/82 Code: 8480-6 Heart Rate 1: 82 bpm Respiratory Rate: 22 bpm SpO2: 93% Temperature: 35.9 (C) / 96.6 (F) We ight: 310 lbs 05/22/2015 Blood Pressure 1: 156/76 Code: 8480-6 BMI: 41.0 Code: 03550-4 Heart Rate 1: 100 bpm Height: 6'1" Respiratory Rate: 22 bpm Temperature: 37 .2 (C) / 98.9 (F) Weight: 311 lbs 02/13/2015 Blood Pressure 1: 166/90 Code: 8480-6 BMI: 41.2 Code: 56145-8 Heart Rate 1: 72 bpm Height: 6'1" Respiratory Rate: 24 bpm SpO2: 93% Tempera ture: 36.9 (C) / 98.5 (F) Weight: 312 lbs 11/07/2014 Blood Pressure 1: 134/70 Code: 8480-6 BMI: 40.5 Code: 31556-6 Heart Rate 1: 76 bpm Height: 6'1" Respiratory Rate: 24 bpm Temperature: 36 .9 (C) / 98.4 (F) Weight: 307 lbs 10/04/2014 Blood Pressure 1: 144/86 Code: 8480-6 BMI: 40.1 Code: 89581-0 Heart Rate 1: 76 bpm Height: 6'1" Respiratory Rate: 28 bpm Temperature: 36 .6 (C) / 97.9 (F) Weight: 304 lbs 09/22/2014 Blood Pressure 1: 142/80 Code: 8480-6 BMI: 40.0 Code: 79684-7 Heart Rate 1: 80 bpm Height: 6'1" Respiratory Rate: 22 bpm SpO2: 96% Tempera ture: 36.6 (C) / 97.8 (F) Weight: 303 lbs 09/21/2014 Blood Pressure 1: 160/66 Code: 8480-6 BMI: 40.0 Code: 70876-5 Heart Rate 1: 90 bpm Height: 6'1" Respiratory Rate: 26 bpm SpO2: 94% Tempera ture: 35.7 (C) / 96.2 (F) Weight: 303 lbs 06/28/2014 Blood Pressure 1: 132/80 Code: 8480-6 BMI: 41.0 Code: 89511-9 Heart Rate 1: 64 bpm Height: 6' Respiratory Rate: 20 bpm Temperature: 36 .7 (C) / 98.0 (F) Weight: 302 lbs 06/10/2014 Blood Pressure 1: 152/70 Code: 8480-6 BMI: 41.1 Code: 11541-5 Heart Rate 1: 76 bpm Height: 6' Respiratory Rate: 20 bpm Temperature: 36 .6 (C) / 97.8 (F) Weight: 303 lbs 03/29/2014 Blood Pressure 1: 132/78 Code: 8480-6 BMI: 40.6 Code: 64883-6 Heart Rate 1: 84 bpm Height: 6' Respiratory Rate: 22 bpm Temperature: 37 .1 (C) / 98.8 (F) Weight: 299 lbs 11/30/2013 Blood Pressure 1: 136/84 Code: 8480-6 BMI: 39.2 Code: 68931-6 Heart Rate 1: 76 bpm Height: 6' Respiratory Rate: 20 bpm Temperature: 36 .8 (C) / 98.2 (F) Weight: 289 lbs 08/03/2013 Blood Pressure 1: 144/80 Code: 8480-6 Heart Rate 1: 86 bpm Respiratory Rate: 20 bpm Temperature: 36.6 (C) / 97.8 (F) Weight: 296 lbs 04/06/2013 Blood Pressure 1: 142/90 Code: 8480-6 BMI: 40.3 Code: 92482-3 Heart Rate 1: 88 bpm Height: 6' Respiratory Rate: 20 bpm Temperature: 36 .6 (C) / 97.8 (F) Weight: 297 lbs 12/01/2012 Blood Pressure 1: 124/78 Code: 8480-6 BMI: 38.7 Code: 32832-9 Heart Rate 1: 76 bpm Height: 6' Respiratory Rate: 20 bpm Temperature: 37 .2 (C) / 98.9 (F) Weight: 285 lbs 08/04/2012 Blood Pressure 1: 128/80 Code: 8480-6 BMI: 38.2 Code: 24092-2 Heart Rate 1: 76 bpm Height: 6' Respiratory Rate: 20 bpm Temperature: 37 .0 (C) / 98.6 (F) Weight: 282 lbs 05/29/2012 Blood Pressure 1: 138/78 Code: 8480-6 BMI: 36.6 Code: 73214-2 Heart Rate 1: 66 bpm Height: 6' Temperature: 36.7 (C) / 98.1 (F) Weight: 270 lbs 05/25/2012 Blood Pressure 1: 128/72 Code: 8480-6 BMI: 39.9 Code: 53318-6 Heart Rate 1: 74 bpm Height: 6' Temperature: 36.1 (C) / 97.0 (F) Weight: 294 lbs 04/07/2012 Blood Pressure 1: 124/76 Code: 8480-6 BMI: 39.9 Code: 11781-0 Heart Rate 1: 72 bpm Height: 6' Respiratory Rate: 20 bpm Temperature: 36 .9 (C) / 98.5 (F) Weight: 294 lbs 12/16/2011 Blood Pressure 1: 128/80 Code: 8480-6 BMI: 40.8 Code: 11193-0 Heart Rate 1: 74 bpm Height: 6' Temperature: 36.6 (C) / 97.8 (F) Weight: 301 lbs 12/03/2011 Blood Pressure 1: 132/76 Code: 8480-6 BMI: 40.8 Code: 69704-7 Heart Rate 1: 68 bpm Height: 6' Respiratory Rate: 20 bpm Temperature: 36 .8 (C) / 98.2 (F) Weight: 301 lbs 08/29/2011 Blood Pressure 1: 140/68 Code: 8480-6 BMI: 40.8 Code: 62593-2 Heart Rate 1: 80 bpm Height: 6' Respiratory Rate: 20 bpm Temperature: 36 .4 (C) / 97.6 (F) Weight: 301 lbs 05/30/2011 Blood Pressure 1: 134/82 Code: 8480-6 BMI: 41.5 Code: 35697-5 Heart Rate 1: 76 bpm Height: 6' Respiratory Rate: 20 bpm Temperature: 36 .3 (C) / 97.3 (F) Weight: 306 lbs 01/29/2011 Blood Pressure 1: 126/74 Code: 8480-6 Heart Rate 1: 80 bpm Temperature: 36.8 (C) / 98.3 (F) Weight: 308 lbs 01/14/2011 Blood Pressure 1: 132/70 Code: 8480-6 Heart Rate 1: 76 bpm Respiratory Rate: 20 bpm Temperature: 37.0 (C) / 98.6 (F) Weight: 301 lbs 01/01/2011 Blood Pressure 1: 126/72 Code: 8480-6 BMI: 41.2 Code: 32815-2 Heart Rate 1: 76 bpm Height: 6' Respiratory Rate: 20 bpm Temperature: 36 .7 (C) / 98.0 (F) Weight: 304 lbs 11/29/2010 Blood Pressure 1: 122/68 Code: 8480-6 Heart Rate 1: 74 bpm Temperature: 36.2 (C) / 97.2 (F) 08/28/2010 Blood Pressure 1: 124/78 Code: 8480-6 Heart Rate 1: 72 bpm Temperature: 36.7 (C) / 98.0 (F) Weight: 303 lbs 06/05/2010 Blood Pressure 1: 134/60 Code: 8480-6 Heart Rate 1: 72 bpm Temperature: 36.5 (C) / 97.7 (F) Weight: 300 lbs 02/05/2010 Blood Pressure 1: 122/80 Code: 8480-6 Heart Rate 1: 88 bpm Temperature: 36.5 (C) / 97.7 (F) Weight: 288 lbs 10/09/2009 Blood Pressure 1: 126/78 Code: 8480-6 Heart Rate 1: 72 bpm Temperature: 37.1 (C) / 98.8 (F) Weight: 286 lbs 08/22/2009 Blood Pressure 1: 152/90 Code: 8480-6 BMI: 37.7 Code: 32660-6 Heart Rate 1: 92 bpm Height: 6'1" Temperature: 38.3 (C) / 101.0 (F) Weight : 286 lbs Functional Status No Functional Status data Reason For Visit Reason For Visit Effective Dates Notes follow up 08/30/2019 Discuss singulair th erapy follow up 08/10/2019 cellulitis 07/06/2019 follow up 05/10/2019 follow up 03/29/2019 Hospital fwup injection(s) 03/04/2019 follow up 01/05/2019 Discuss pathology on recent lung biopsy follow up 12/09/2018 follow up 11/24/[address] of chest follow up 09/16/2018 follow up 09/03/2018 cough 08/27/2018 follow up 08/13/2018 cough 08/11/2018 possible headache 07/16/2018 cough 07/13/2018 ongoing follow up 06/03/2018 cough 05/04/2018 follow up 03/03/2018 follow up 02/17/2018 follow up 02/10/2018 follow up 11/05/2017 skin lesion 09/09/2017 Dr James had given hi m clotrimazole/betamethasone follow up 08/07/2017 ER fwup follow up 08/04/2017 follow up 06/04/2017 follow up 06/02/2017 follow up 05/05/2017 cough 04/10/2017 injection(s) 03/28/2017 flu shot follow up 02/03/2017 follow up 10/30/2016 follow up 08/30/2016 postnasal drip 08/27/2016 follow up 07/02/2016 3mo fwup follow up 06/14/2016 follow up 06/13/2016 follow up 05/14/2016 2wk fwup follow up 04/29/2016 1wk fwup flank pain 04/22/2016 follow up 04/01/2016 follow up 11/30/2015 follow up 08/29/2015 cough 08/14/2015 Patient has stopped the symbicort and prednisone due to side effects follow up 08/09/2015 Urgent care follow up 05/22/2015 follow up 02/13/2015 follow up 11/07/2014 follow up 10/04/2014 follow up 09/22/2014 1 day chest congestion 09/21/2014 dry and wet cough follow up 06/28/2014 3mo fwup sinus congestion 06/10/2014 follow up 03/29/2014 follow up 11/30/2013 Discuss labs follow up 08/03/2013 4 month follow up 04/06/2013 Discuss recent labs follow up 12/01/2012 4mo fwup/discuss lab s follow up 08/04/2012 4mo fwup frequent urination 06/01/2012 chills 05/29/2012 otalgia 05/25/2012 follow up 04/07/2012 4mo fwup finger pain 12/16/2011 due to cut follow up 12/03/2011 3mo fwup/discuss lab s follow up 08/29/2011 3mo fwup/discuss lab s follow up 05/30/2011 discuss labs follow up 01/29/2011 2wk fwup follow up 01/14/2011 2wk fwup follow up 01/01/2011 4mo fwup/discuss lab s sinus pain 11/29/2010 follow up 08/28/2010 3mo fwup/discuss lab s follow up 06/05/2010 4mo fwup/discuss lab s follow up 02/05/2010 4mo fwup/discuss lab s from 10/02 follow up 10/09/2009 6mo fwup cough 08/22/2009 using robitussin dm Encounters Encounter Performer Location Codes Date () OFFICE/OUTPATIENT VISIT EST Diagnosis: Chronic obstructive pulmonary disease, unspecified[ICD10: J44.9] Diagnosis: Essential hypertension[ICD10: I10] Diagnosis: Mixed hyperlipidemia[ICD10: E78.2] Diagnosis: Type 2 diabetes mellitus with diabetic neuropathy, unspecified[ICD10: E11.40] Neela MURILLO [employer] CPT-4: 20717 12/01/2019 ([id number]) OFFICE/OUTPATIENT VISIT EST Diagnosis: Chronic obstructive pulmonary disease, unspecified[ICD10: J44.9] Diagnosis: Essential (primary) hypertension[ICD10: I10] Diagnosis: Mixed hyperlipidemia[ICD10: E78.2] Diagnosis: Type 2 diabetes mellitus with hyperglycemia[ICD10: E11.65] Neela MURILLO [employer] CPT-4: 93267 08/30/2019 ([id number]) OFFICE/OUTPATIENT VISIT EST Diagnosis: Chronic obstructive pulmonary disease with (acute) exacerbation[ICD10: J44.1] Neela HYMAN DO [facility] CPT- 4: 67212 08/10/2019 ([id number]) OFFICE/OUTPATIENT VISIT EST Diagnosis: Sore on toe[ICD10: L98.9] Neela VASQUEZ [facility] CPT-4: 18780 07/06/2019 ([id number]) OFFICE/OUTPATIENT VISIT EST Diagnosis: Advanced chronic obstructive pulmonary disease[ICD10: J44.9] 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] Neela HYMAN DO [facility] CPT-4: 63878 05/10/2019 ([id number]) OFFICE/OUTPATIENT VISIT EST Diagnosis: Chronic obstructive pulmonary disease with (acute) exacerbation[ICD10: J44.1] Diagnosis: Hypokalemia[ICD10: E87.6] 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] Neela HYMAN [facility] CPT-4: 20213 03/29/2019 ([id number]) NURSE/OUTPATIENT VISIT EST Diagnosis: PNEUMOCOCCAL VACCINE[ICD10: Z23] Neela HYMAN [facility] CPT-4: 28615 03/04/2019 ([id number]) OFFICE/OUTPATIENT VISIT EST Diagnosis: Chronic obstructive pulmonary disease with (acute) exacerbation[ICD10: J44.1] Diagnosis: Other nonspecific abnormal finding of lung field[ICD10: R91.8] Neela HYMAN DO [facility] CPT-4: 23678 01/05/2019 ([id number]) OFFICE/OUTPATIENT VISIT EST Diagnosis: Solitary pulmonary nodule[ICD10: R91.1] 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] Diagnosis: Tinea corporis[ICD10: B35.4] Neela HYMAN DO [facility] CPT-4: 01283 12/09/2018 ([id number]) OFFICE/OUTPATIENT VISIT EST Diagnosis: COUGH[ICD10: R05] Diagnosis: Chronic obstructive pulmonary disease, unspecified[ICD10: J44.9] Diagnosis: Other disorders of lung[ICD10: J98.4] Diagnosis: Other nonspecific abnormal finding of lung field[ICD10: R91.8] Neela HYMAN [employer] [facility] CPT-4: 09808 11/24/2018 ([id number]) OFFICE/OUTPATIENT VISIT EST Diagnosis: Pneumonia, unspecified organism[ICD10: J18.9] Amita HYMAN [employer] [facility] CPT-4: 63266 09/16/2018 ([id number]) OFFICE/OUTPATIENT VISIT EST Diagnosis: Pneumonia, unspecified organism[ICD10: J18.9] Neela HYMAN [employer] [facility] CPT-4: 74638 09/03/2018 ([id number]) OFFICE/OUTPATIENT VISIT EST Diagnosis: Personal history of pneumonia (recurrent)[ICD10: Z87.01] Diagnosis: Cough[ICD10: R05] Diagnosis: Essential (primary) hypertension[ICD10: I10] Diagnosis: Type 2 diabetes mellitus with hyperglycemia[ICD10: E11.65] Amita HYMAN [employer] [facility] CPT-4: 68389 08/27/2018 OFFICE/OUTPATIENT VISIT EST Diagnosis: Pneumonia, unspecified organism[ICD10: J18.9] Diagnosis: Chronic obstructive pulmonary disease with (acute) exacerbation[ICD10: J44.1] Diagnosis: Other specified symptoms and signs involving the circulatory and respiratory systems[ICD10: R09.89] Diagnosis: Essential (primary) hypertension[ICD10: I10] Amita HYMAN [employer] [facility] CPT-4: 44322 08/13/2018 OFFICE/OUTPATIENT VISIT EST Diagnosis: Pneumonia, unspecified organism[ICD10: J18.9] Diagnosis: Other specified symptoms and signs involving the circulatory and respiratory systems[ICD10: R09.89] Amita HYMAN [employer] [facility] CPT-4: 60379 08/11/2018 ([id number]) OFFICE/OUTPATIENT VISIT EST Diagnosis: Dyspnea, unspecified[ICD10: R06.00] Diagnosis: Chronic obstructive pulmonary disease with (acute) exacerbation[ICD10: J44.1] Diagnosis: Pneumonia, unspecified organism[ICD10: J18.9] Amita HYMAN DO [facility] CPT-4: 15414 07/16/2018 ([id number]) OFFICE/OUTPATIENT VISIT EST Diagnosis: Acute bronchitis due to other specified organisms[ICD10: J20.8] Diagnosis: Cough[ICD10: R05] Amita HYMAN DO [facility] T-4: 42563 07/13/2018 ([id number]) OFFICE/OUTPATIENT VISIT EST Diagnosis: Essential (primary) hypertension[ICD10: I10] Diagnosis: Chronic obstructive pulmonary disease, unspecified[ICD10: J44.9] Diagnosis: Type 2 diabetes mellitus with hyperglycemia[ICD10: E11.65] Diagnosis: Mixed hyperlipidemia[ICD10: E78.2] Neela STERLING Octavio HYMAN [employer] [facility] CPT-4: 71303 06/03/2018 ([id number]) OFFICE/OUTPATIENT VISIT EST Diagnosis: Chronic obstructive pulmonary disease, unspecified[ICD10: J44.9] Gely Harp NEELA Octavio HYMAN [employer] [facility] CPT-4: 33354 05/04/2018 ([id number]) OFFICE/OUTPATIENT VISIT EST Diagnosis: Essential (primary) hypertension[ICD10: I10] Diagnosis: Localized edema[ICD10: R60.0] Neela Yenni MIRZALINE Octavio HYMAN [employer] [facility] CPT-4: 28186 03/03/2018 ([id number]) OFFICE/OUTPATIENT VISIT EST Diagnosis: Localized edema[ICD10: R60.0] Neela MURILLO JulissaMendez YENNI [facility] CPT-4: 11156 02/17/2018 ([id number]) OFFICE/OUTPATIENT VISIT EST Diagnosis: FLU VACCINE[ICD10: Z23] Diagnosis: PNEUMOCOCCAL VACCINE[ICD10: Z23] Diagnosis: Type 2 diabetes mellitus without complications[ICD10: E11.9] Diagnosis: Mixed hyperlipidemia[ICD10: E78.2] Diagnosis: Essential (primary) hypertension[ICD10: I10] Diagnosis: Localized edema[ICD10: R60.0] Diagnosis: Chronic obstructive pulmonary disease, unspecified[ICD10: J44.9] Neela MURILLO JulissaMendez YENNI [employer] [facility] CPT-4: 95473 02/10/2018 ([id number]) OFFICE/OUTPATIENT VISIT EST Diagnosis: Type 2 diabetes mellitus with hyperglycemia[ICD10: E11.65] Diagnosis: Mixed hyperlipidemia[ICD10: E78.2] Diagnosis: Essential (primary) hypertension[ICD10: I10] Diagnosis: Chronic obstructive pulmonary disease, unspecified[ICD10: J44.9] Diagnosis: Cutaneous abscess of back [any part, except buttock][ICD10: L02.212] Neela HYMAN [employer] [facility] CPT-4: 88155 11/05/2017 ([id number]) OFFICE/OUTPATIENT VISIT EST Diagnosis: Allergic urticaria[ICD10: L50.0] Gely HYMAN [employer] [facility] CPT-4: 61871 09/09/2017 ([id number]) OFFICE/OUTPATIENT VISIT EST Diagnosis: Generalized enlarged lymph nodes[ICD10: R59.1] Diagnosis: Acute gastritis without bleeding[ICD10: K29.00] Gely HYAMN [employer] [facility] CPT-4: 83182 08/07/2017 ([id number]) OFFICE/OUTPATIENT VISIT EST Diagnosis: Type 2 diabetes mellitus without complications[ICD10: E11.9] Diagnosis: Mixed hyperlipidemia[ICD10: E78.2] Diagnosis: Essential (primary) hypertension[ICD10: I10] Neela HYMAN [employer] [facility] CPT-4: 80951 08/04/2017 ([id number]) OFFICE/OUTPATIENT VISIT EST Diagnosis: Zoster without complications[ICD10: B02.9] Diagnosis: Acute sialoadenitis[ICD10: K11.21] Gely STERLING [employer] [facility] CPT-4: 68318 06/04/2017 OFFICE/OUTPATIENT VISIT EST Diagnosis: Zoster without complications[ICD10: B02.9] Diagnosis: Acute sialoadenitis[ICD10: K11.21] Gely STERLING [employer] HYMAN [facility] [facility] CPT-4: 14951 06/02/2017 ([id number]) OFFICE/OUTPATIENT VISIT EST Diagnosis: Type 2 diabetes mellitus without complications[ICD10: E11.9] Diagnosis: Mixed hyperlipidemia[ICD10: E78.2] Diagnosis: Essential (primary) hypertension[ICD10: I10] Diagnosis: Chronic obstructive pulmonary disease, unspecified[ICD10: J44.9] Neela HYMAN [employer] [facility] CPT-4: 36916 05/05/2017 OFFICE/OUTPATIENT VISIT EST Diagnosis: Chronic obstructive pulmonary disease with acute lower respiratory infection[ICD10: J44.0] Diagnosis: Impacted cerumen, bilateral[ICD10: H61.23] Gely HYMAN [employer] [facility] CPT-4: 96573 04/10/2017 ([id number]) OFFICE/OUTPATIENT VISIT EST Diagnosis: FLU VACCINE[ICD10: Z23] Neela BUI [employer] [facility] CPT-4: 10898 03/28/2017 ([id number]) OFFICE/OUTPATIENT VISIT EST Diagnosis: Type 2 diabetes mellitus without complications[ICD10: E11.9] Diagnosis: Mixed hyperlipidemia[ICD10: E78.2] Diagnosis: Essential (primary) hypertension[ICD10: I10] Diagnosis: Chronic obstructive pulmonary disease, unspecified[ICD10: J44.9] Neela HYMAN [employer] [facility] CPT-4: 36034 02/03/2017 ([id number]) OFFICE/OUTPATIENT VISIT EST Diagnosis: Type 2 diabetes mellitus with hyperglycemia[ICD10: E11.65] Diagnosis: Mixed hyperlipidemia[ICD10: E78.2] Diagnosis: Essential (primary) hypertension[ICD10: I10] Diagnosis: Chronic obstructive pulmonary disease, unspecified[ICD10: J44.9] Neela HYMAN [employer] [facility] CPT-4: 22680 10/30/2016 ([id number]) NO CHARGE Diagnosis: Acute bronchitis, unspecified[ICD10: J20.9] Sammi Reinaldo HYMAN [employer] [facility] CPT-4: 93085 08/30/2016 ([id number]) OFFICE/OUTPATIENT VISIT EST Diagnosis: Acute bronchitis, unspecified[ICD10: J20.9] Diagnosis: Other seasonal allergic rhinitis[ICD10: J30.2] Sammi Reinaldo HYMAN [employer] [facility] CPT-4: 48375 08/27/2016 ([id number]) OFFICE/OUTPATIENT VISIT EST Diagnosis: Type 2 diabetes mellitus without complications[ICD10: E11.9] Diagnosis: Mixed hyperlipidemia[ICD10: E78.2] Diagnosis: Essential (primary) hypertension[ICD10: I10] Neela HYMAN DO [facility] CPT-4: 08054 07/02/2016 ([id number]) OFFICE/OUTPATIENT VISIT EST Diagnosis: Acute bronchitis, unspecified[ICD10: J20.9] Sammi HYMAN DO [facility] CPT-4: 69701 06/14/2016 ([id number]) OFFICE/OUTPATIENT VISIT EST Diagnosis: Acute bronchitis, unspecified[ICD10: J20.9] Sammi HYMAN DO [facility] CPT-4: 56515 06/13/2016 ([id number]) OFFICE/OUTPATIENT VISIT EST Diagnosis: Essential (primary) hypertension[ICD10: I10] Neela HYMAN DO [facility] CPT-4: 83745 05/14/2016 ([id number]) OFFICE/OUTPATIENT VISIT EST Diagnosis: Essential (primary) hypertension[ICD10: I10] Neela HYMAN DO [facility] CPT-4: 56238 04/29/2016 ([id number]) OFFICE/OUTPATIENT VISIT EST Diagnosis: Unspecified abdominal pain[ICD10: R10.9] Diagnosis: Left lower quadrant pain[ICD10: R10.32] Diagnosis: Left upper quadrant pain[ICD10: R10.12] Diagnosis: Essential (primary) hypertension[ICD10: I10] Neela HYMAN DO [facility] CPT-4: 65806 04/22/2016 ([id number]) OFFICE/OUTPATIENT VISIT EST Diagnosis: Type 2 diabetes mellitus without complications[ICD10: E11.9] Diagnosis: Mixed hyperlipidemia[ICD10: E78.2] Diagnosis: Essential (primary) hypertension[ICD10: I10] Neela HYMAN DO [facility] CPT-4: 06037 04/01/2016 ([id number]) OFFICE/OUTPATIENT VISIT EST Diagnosis: Type 2 diabetes mellitus with hyperglycemia[ICD10: E11.65] Diagnosis: Mixed hyperlipidemia[ICD10: E78.2] Diagnosis: Essential (primary) hypertension[ICD10: I10] Neela HYMAN [employer] [facility] CPT-4: 69748 11/30/2015 ([id number]) OFFICE/OUTPATIENT VISIT EST Diagnosis: Type 2 diabetes mellitus with diabetic neuropathy, unspecified[ICD10: E11.40] Diagnosis: Essential (primary) hypertension[ICD10: I10] Diagnosis: Mixed hyperlipidemia[ICD10: E78.2] Neela FRIEND DC Octavio HYMAN [employer] [facility] CPT-4: 29119 08/29/2015 ([id number]) OFFICE/OUTPATIENT VISIT EST Diagnosis: COUGH[ICD10: R05] Diagnosis: Wheezing[ICD10: R06.2] Diagnosis: Type 2 diabetes mellitus with diabetic neuropathy, unspecified[ICD10: E11.40] Neela Yenni HYMAN [employer] [facility] CPT-4: 49980 08/14/2015 ([id number]) OFFICE/OUTPATIENT VISIT EST Diagnosis: Other seasonal allergic rhinitis[ICD10: J30.2] Diagnosis: Dyspnea, unspecified[ICD10: R06.00] Diagnosis: Wheezing[ICD10: R06.2] SammiKeren HYMAN [employer] [facility] CPT-4: 54414 08/09/2015 ([id number]) OFFICE/OUTPATIENT VISIT EST Diagnosis: Essential (primary) hypertension[ICD10: I10] Diagnosis: Type 2 diabetes mellitus with hyperglycemia[ICD10: E11.65] Diagnosis: Mixed hyperlipidemia[ICD10: E78.2] Neela FRIEND DC [employer] [facility] CPT-4: 62257 05/22/2015 ([id number]) OFFICE/OUTPATIENT VISIT EST Diagnosis: 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] Diagnosis: - I - HYPERTENSION[ICD9: 401.9] Diagnosis: - I - HYPERLIPIDEMIA NEC/NOS[ICD9: 272.4] Diagnosis: Left hand paresthesia[ICD9: 782.0] Neela FRIEND ASHER [employer] HYMAN [employer] [facility] CPT-4: 09970 02/13/2015 ([id number]) OFFICE/OUTPATIENT VISIT EST Diagnosis: HYPERLIPIDEMIA NEC/NOS[ICD9: 272.4] Diagnosis: 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] Neela HYMAN [facility] CPT-4: 45622 11/07/2014 ([id number]) OFFICE/OUTPATIENT VISIT EST Diagnosis: ALLERGIC RHINITIS[ICD9: 477.9] Diagnosis: WHEEZING[ICD9: 786.07] Neela Duarte [facility] CPT-4: 12343 10/04/2014 ([id number]) OFFICE/OUTPATIENT VISIT EST Diagnosis: BRONCHITIS, ACUTE[ICD9: 466.0] Diagnosis: WHEEZING[ICD9: 786.07] Loren Duarte [facility] CPT-4: 95771 09/22/2014 ([id number]) OFFICE/OUTPATIENT VISIT EST Diagnosis: DYSPNEA[ICD9: 786.09] Diagnosis: WHEEZING[ICD9: 786.07] Diagnosis: Arrhythmia[ICD9: 427.9] Loren BUI [facility] CPT-4: 58332 09/21/2014 ([id number]) OFFICE/OUTPATIENT VISIT EST Diagnosis: 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, 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] Diagnosis: - I - HYPERLIPIDEMIA NEC/NOS[ICD9: 272.4] Diagnosis: - I - HYPERTENSION[ICD9: 401.9] Neela HYMAN [facility] CPT-4: 81494 06/28/2014 OFFICE/OUTPATIENT VISIT EST Diagnosis: SINUSITIS, ACUTE[ICD9: 461.9] Diagnosis: OTITIS MEDIA NOS[ICD9: 382.9] Sarah Sunshine NEELA HYMAN [facility] CPT-4: 66634 06/10/2014 ([id number]) OFFICE/OUTPATIENT VISIT EST Diagnosis: 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] Diagnosis: - I - HYPERLIPIDEMIA NEC/NOS[ICD9: 272.4] Diagnosis: - I - HYPERTENSION[ICD9: 401.9] Neela HYMAN [facility] CPT-4: 22538 03/29/2014 ([id number]) OFFICE/OUTPATIENT VISIT EST Diagnosis: 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] Diagnosis: - I - HYPERTENSION[ICD9: 401.9] Diagnosis: - I - HYPERLIPIDEMIA NEC/NOS[ICD9: 272.4] Diagnosis: Hand lesion[ICD9: 709.9] Neela MADRIGAL [facility] CPT-4: 03563 11/30/2013 ([id number]) OFFICE/OUTPATIENT VISIT EST Diagnosis: 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] Diagnosis: HYPERLIPIDEMIA NEC/NOS[ICD9: 272.4] Diagnosis: HYPERTENSION[ICD9: 401.9] Neela VASQUEZ [facility] CPT-4: 48890 08/03/2013 ([id number]) OFFICE/OUTPATIENT VISIT EST Diagnosis: 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, 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] Diagnosis: HYPERTENSION[ICD9: 401.9] Diagnosis: HYPERLIPIDEMIA NEC/NOS[ICD9: 272.4] [facility] CPT-[facility]: 49213 04/06/2013 ([id number]) OFFICE/OUTPATIENT VISIT EST Diagnosis: 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] Diagnosis: HYPERLIPIDEMIA NEC/NOS[ICD9: 272.4] Diagnosis: HYPERTENSION[ICD9: 401.9] Neela VASQUEZ [facility] CPT-4: 80443 12/01/2012 ([id number]) OFFICE/OUTPATIENT VISIT EST Diagnosis: 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] Diagnosis: HYPERTENSION[ICD9: 401.9] Diagnosis: HYPERLIPIDEMIA NEC/NOS[ICD9: 272.4] [facility] CPT-4: 73480 08/04/2012 ([id number]) OFFICE/OUTPATIENT VISIT EST Diagnosis: URINARY FREQUENCY[ICD9: 788.41] Neela Yenni HYMAN [facility] CPT-4: 81794 06/01/2012 OFFICE/OUTPATIENT VISIT EST Diagnosis: Agitation[ICD9: 307.9] Diagnosis: Frequent urination[ICD9: 788.41] Janet Jean Baptiste NEELA Octavio [facility] CPT-4: 60694 05/29/2012 OFFICE/OUTPATIENT VISIT EST Diagnosis: SINUSITIS, ACUTE[ICD9: 461.9] Diagnosis: OTALGIA[ICD9: 388.70] Neela Zhanginna NEELA JulissaMendez SERGENDER [facility] CPT-4: 32516 05/25/2012 OFFICE/OUTPATIENT VISIT EST Diagnosis: 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, 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] Diagnosis: HYPERTENSION[ICD9: 401.9] Diagnosis: HYPERLIPIDEMIA NEC/NOS[ICD9: 272.4] Neela GREGORIO S. SERGENDER [facility] CPT-4: 30131 04/07/2012 OFFICE/OUTPATIENT VISIT EST Diagnosis: FINGER INJURY[ICD9: 959.5] Janet MRUILLO SMendez [facility] CPT-4: 89703 12/16/2011 ([id number]) OFFICE/OUTPATIENT VISIT EST Diagnosis: 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, 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] Diagnosis: HYPERTENSION[ICD9: 401.9] Diagnosis: HYPERLIPIDEMIA NEC/NOS[ICD9: 272.4] Neela GREGORIO S. SERGENDER [facility] CPT-4: 70827 12/03/2011 ([id number]) OFFICE/OUTPATIENT VISIT EST Diagnosis: 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] Diagnosis: HYPERLIPIDEMIA NEC/NOS[ICD9: 272.4] Diagnosis: HYPERTENSION[ICD9: 401.9] Neela Sergegemmainna NEELA JulissaMendez [facility] CPT-4: 60722 08/29/2011 OFFICE/OUTPATIENT VISIT EST Diagnosis: 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] Diagnosis: HYPERLIPIDEMIA NEC/NOS[ICD9: 272.4] Diagnosis: HYPERTENSION[ICD9: 401.9] Neela MURILLO JulissaMendez [facility] CPT-4: 79429 05/30/2011 OFFICE/OUTPATIENT VISIT EST Diagnosis: SKIN SENSATION DISTURB[ICD9: 782.0] Neela GREGORIO S. ORENDER [facility] CPT-4: 96610 01/29/2011 OFFICE/OUTPATIENT VISIT EST Diagnosis: SKIN SENSATION DISTURB[ICD9: 782.0] Neela [facility] CPT-4: 94363 01/14/2011 OFFICE/OUTPATIENT VISIT EST Neela MURILLO SM[facility]nez [facility] CPT- 4: 60018 01/01/2011 OFFICE/OUTPATIENT VISIT EST Neela MURILLO [facility] CPT- 4: 06757 11/29/2010 ([id number]) OFFICE/OUTPATIENT VISIT EST Neela [facility] CPT-4: 27577 08/28/2010 ([id number]) OFFICE/OUTPATIENT VISIT, EST Neela [facility] CPT-4: 29270 06/05/2010 ([id number]) OFFICE/OUTPATIENT VISIT, EST Neela [facility] CPT-4: 01373 02/05/2010 ([id number]) OFFICE/OUTPATIENT VISIT, EST Neela [facility] CPT-4: 95441 10/09/2009 ([id number]) OFFICE/OUTPATIENT VISIT, EST Neela [facility] CPT-4: 04693 08/22/2009 Plan of Care Planned Activity Notes Codes Status Date Visit Diagnosis Plan: Chronic obstructive pulmonary di sease, unspecified Discussion: On oxygen/SVNS ICD-9 : 496 ICD-10 : J44.9 12/01/2019 Visit Diagnosis Plan: Essential hypertension Discussio n: Stable ICD-9 : 401.9 ICD-10 : I10 12/01/2019 Visit Diagnosis Plan: Mixed hyperlipidemia Discussion: Mediterranean diet and update lipids/LFTs ICD-9 : 272.4 ICD-10 : E78.2 12/01/2019 Visit Diagnosis Plan: Type 2 diabetes me llitus with diabetic neuropathy, unspecified Discussion: Lab pending Accuchecks daily Continue current meds Check CMP and HbA1C in 3mos then fwup ICD-9 : 250.60 ICD-10 : E11.40 12/01/2019 Appointment: [facility] [phone] [id number] [facility] 12/01/2019 FOLLOW UP 12/01/2019 Visit Diagnosis Plan: Chronic obstructive pulmonary di sease, unspecified Discussion: On continuous oxygen ICD-9 : 496 ICD-10 : J44.9 08/30/2019 Visit Diagnosis Plan: Type 2 diabetes mellitus with hy perglycemia Discussion: Lab tomorrow Accuchecks daily Continue current meds Check CMP and HbA1C in 3mos then fwup ICD-9 : 250.02 ICD-10 : E11.65 08/30/2019 Appointment: Neela Hyman WPtel: [address] [place] [address] [place] FOLLOW UP 08/30/2019 Visit Diagnosis Plan: Chronic obstructiv e pulmonary disease with (acute) exacerbation Discussion: Think this is more weather c hange and allergy induced so will use his symbicort routinely, restart his allergy meds and start his SVNS with duoneb at least QID the next week and let us know if not improving or if he is worsening We did discuss COVID-19 protective practices ICD-9 : 491.21 ICD-10 : J44.1 08/10/2019 Appointment: Neela Hyman WPtel: [address] [place] [address] ACUTE ILLNESS 08/10/2019 Visit Diagnosis Plan: Sore on toe Discussion: Keep farhat an/dry Keflex Notify if worsens ICD-9 : 709.9 ICD-10 : L98.9 07/06/2019 Appointment: Neela Hyman WPtel: [address] [place] [address] ACUTE ILLNESS 07/06/2019 Patient Education: [employer]- [employer] Coupon [id number] [email or web address] the News/samplemd/resources/getResource/61/[email or web address] Completed 07/06/2019 Visit Diagnosis Plan: Advanced chronic obstructive pul monary disease Discussion: Continue oxygen and pulmonary rehab Follow Up: 3 months ICD-9 : 496 ICD-10 : J44.9 05/10/2019 Visit Diagnosis Plan: Lymphoma involving lung Discussi on: Doing weekly lab and chemo ICD-9 : 202.82 ICD-10 : C85.99 05/10/2019 Appointment: Neela Hyman WPtel: [address] [place], [place] [id number] FOLLOW UP 05/10/2019 Appointment: Neela Hyman WPtel: [address] [place] [address] he called 04/14/19-- he was at physical therapy which is why he didn't make his appointment time. NO SHOW 04/13/2019 Visit Diagnosis Plan: Chronic obstructiv e pulmonary disease with (acute) exacerbation Discussion: On continuous oxygen at 5L v ia [place] Starts pulmonary rehab next week Follow Up: 6 weeks ICD-9 : 491.21 ICD-10 : J44.1 03/29/2019 Visit Diagnosis Plan: Lymphoma involving lung Discussi on: Sees oncology on Friday ICD-9 : 202.82 ICD-10 : C85.99 03/29/2019 Visit Diagnosis Plan: Hypokalemia Discussion: Increase K-dur to BID Will have lab drawn at Cancer center later this week ICD-9 : 276.8 ICD-10 : E87.6 03/29/2019 Appointment: Neela Hyman WPtel: [address] [place] [address] Hospital Follow Up 03/29/2019 Appointment: Neela Hyman WPtel: [address] [place], [place] [id number] [place] INJECTION 03/04/2019 Visit Diagnosis Plan: Chronic obstructiv e pulmonary disease with (acute) exacerbation Discussion: Increase SVNS with duoneb to QID Prednisone taper ICD-9 : 491.21 ICD-10 : J44.1 01/05/2019 Visit Diagnosis Plan: Other nonspecific abnormal findi ng of lung field Discussion: Referral to pulmonology--will likely need bronchoscopy--path results discussed ICD-9 : 786.6 ICD-10 : R91.8 01/05/2019 Appointment: Neela Hyman WPtel: [address] [place] [address] FOLLOW UP 01/05/2019 Patient Education: prednisone- [employer] Coupon [id number] [email or web address]/samplemd/resources/getResource/61/[email or web address] Completed 01/05/2019 Care Plan: Referral Order SNOMED-CT : [id number] Pending 01/05/2019 Appointment: Neela Hyman WPtel: [address] [place] [address] [place] CANCELED 12/21/2018 Visit Diagnosis Plan: Tinea corporis Discussion: Diflu can--hold simvastatin and fenofibrate while taking ICD-9 : 110.5 ICD-10 : B35.4 12/09/2018 Visit Diagnosis Plan: Solitary pulmonary nodule Discus esmer: CT guided needle biopsy of RUL lung mass ICD-9 : 793.11 ICD-10 : R91.1 12/09/2018 Appointment: Neela Hyman WPtel: [address] [place] [address] FOLLOW UP 12/09/2018 Appointment: Gely Harp [address] [place] [address] [place] NO SHOW 12/01/2018 Visit Diagnosis Plan: Other disorders of lung Discussi on: Update PET scan and fwup with oncology Discussed may need pulmonology with Bronchoscopy ICD-9 : 518.89 ICD-10 : J98.4 11/24/2018 Visit Diagnosis Plan: Chronic obstructive pulmonary di sease, unspecified Discussion: Using proair prn Prednisone and notify if worsening Discussion: Using proair prn ICD-9 : 496 ICD-10 : J44.9 11/24/2018 Appointment: Neela Hyman WPtel: [address] [place] [address] [place] FOLLOW UP 11/24/2018 Care Plan: PET IMAGE FULL BODY LOINC : 4 2711-2 Pending 11/24/2018 Appointment: Neela Hyman WPtel: [address] [place], [place] [address] [place] Consult 09/21/2018 Visit Diagnosis Plan: Pneumonia, unspecified organism Discussion: Patient clinically improved. Recent CT scan from 09/07 showed unresolved right upper lobe pneumonia. Finished another 7 days of levaquin. Will repeat CBC early next week. Order sent with patient to get done at [facility]. FU CT recommended in 4 weeks. Patient states understanding. ICD-9 : 486 ICD-10 : J18.9 09/16/2018 Appointment: Amita Henderson [facility] dooub [id number] FOLLOW UP 09/16/2018 Visit Diagnosis Plan: Pneumonia, unspecified organism Discussion: Clinically patient feels and looks much better but need CT scan of chest due to ongoing round pneumonia in association with his known lymphoma ICD-9 : 486 ICD-10 : J18.9 09/03/2018 Appointment: Neela Hyman WPtel: [address] [facility] FOLLOW UP 09/03/2018 Care Plan: CT THORAX W/O DYE LOINC : 473 66-0 Pending 09/03/2018 Visit Diagnosis Plan: Essential (primary) hypertension Discussion: Stable on diltiazem. Jc vieyra. Had ECHO last week. Requesting copies of results from cardiology. ICD-9 : 401.9 ICD-10 : I10 08/27/2018 Visit Diagnosis Plan: Cough Discussion: Continue maint enance medications- Trelegy. ProAir as needed for shortness of breath and wheezing. Humidifier for cough. ICD-9 : 786.2 ICD-10 : R05 08/27/2018 Visit Diagnosis Plan: Type 2 diabetes mellitus with hy perglycemia Discussion: Update fasting lab before upcoming appt. with doctor. Fasting labs- [facility] Order sent with patient- CBC, CMP, TSH, Lipid, A1C ICD-9 : 250.02 ICD-10 : E11.65 08/27/2018 Visit Diagnosis Plan: Personal history of pneumonia (r ecurrent) Discussion: Much improved since last visit. Completed course of antibiotics. Seeing doctor next week for well visit. May consider repeat CXR at that appt. Patient states understanding. ICD-9 : V12.61 ICD-10 : Z87.01 08/27/2018 Appointment: Amita Henderson [facility] dooub [id number] FOLLOW UP 08/27/2018 Visit Diagnosis Plan: Other specified sy mptoms and signs involving the circulatory and respiratory systems Discussion: Go back to 40 mg lasix daily and 20 of potassium. ECHO scheduled this week. Patient states understanding. ICD-9 : 785.9 ICD-10 : R09.89 08/13/2018 Visit Diagnosis Plan: Pneumonia, unspecified organism Discussion: Continue Levaquin. Start prednisone 40 mg daily x 7 days. Return in 2 weeks for FU and repeat CXR. ICD-9 : 486 ICD-10 : J18.9 08/13/2018 Visit Diagnosis Plan: Chronic obstructiv e pulmonary disease with (acute) exacerbation Discussion: Continue nebulizer treatment s every 6 hours for wheezing and shortness of breath. Continue Trelegy ICD-9 : 491.21 ICD-10 : J44.1 08/13/2018 Visit Diagnosis Plan: Essential (primary) hypertension Discussion: Recheck BP and possible adjustments in meds in 2 weeks. Patient has been taking high doses of steroids so increase in BP may be attributed to this. ICD-9 : 401.9 ICD-10 : I10 08/13/2018 Appointment: Amita Henderson [facility] dooub [id number] [facility] FOLLOW UP 08/13/2018 Appointment: Amita Henderson [facility] dooub [id number] CANCELED 08/13/2018 Patient Education: prednisone- [employer] Coupon [id number] https://www.Parenthoods.Quant the News/samplemd/resources/getResource/61/lm43tf7t-2x02-9tl5-4e Completed 08/13/2018 Visit Diagnosis Plan: Other specified sy mptoms and signs involving the circulatory and respiratory systems Discussion: CXR-vascular congestion and enlarged heart. Will have patient double lasix and potassium today and tomorrow. Re-evaluate condition in clinic . Will order ECHO. Patient states unde rstanding. ICD-9 : 514 ICD-10 : R09.89 08/11/2018 Visit Diagnosis Plan: Pneumonia, unspecified organism Discussion: CXR_-Pneumonia not resolved from previous visit. Start Levaquin 500 daily for 10 days. Start today. See back on of this week. Steroid injection kenalog and dex adminstered in clinic- patient tolerated well. Continue with all COPD inhalers and use nebulizer frequently. Patient states understanding. ICD-9 : 486 ICD-10 : J18.9 08/11/2018 Appointment: Amita Henderson [address] [place], [place] [id number] ACUTE ILLNESS 08/11/2018 Care Plan: CHEST X-RAY 2VW FRONTAL&LATL LOINC : 00216-9 Pending 07/20/2018 Visit Diagnosis Plan: Dyspnea, unspecified Discussion: CXR- to be completed at the hospital. Will call with results and any adjustments in plan. Solumedrol 125 administered in clinic Prednisone 20 mg BID x 5 days- start tomorrow ICD-9 : 786.09 ICD-10 : R06.00 07/16/2018 Appointment: Amita Henderson [address] [place], [place] [id number] ACUTE ILLNESS 07/16/2018 Patient Education: prednisone- [employer] Coupon [id number] https://www.Syndevrx/sampleThink Gaming/resources/getResource/61/54s1z6ms-at63-8sc9-f4 Completed 07/16/2018 Visit Diagnosis Plan: Acute bronchitis due to other sp ecified organisms Discussion: Kenalog 40 mg IM administered in clinic. Doxycycline called into [facility]. Take as directed. Continue nebulizer and Trelegy. Follow up if symptoms are not improving with treatment regimen. Patient states understanding of all instruction. ICD-9 : 466.0 ICD-10 : J20.8 07/13/2018 Appointment: Amita Henderson [address] [place], [place] [id number] ACUTE ILLNESS 07/13/2018 Patient Education: doxycycline hyclate- [employer] Cou saritha [id number] https://www.Parenthoods.Quant the News/samplemd/resources/getResource/61/3x336u86-9f4w-5017-3o Completed 07/13/2018 Care Plan: [place] : [address]-2 Pending 07/13/2018 Care Plan: CBC Pending 07/13/2018 Care Plan: A1C HPLC LOINC : 03827-8 Pending 07/13/2018 Visit Diagnosis Plan: Mixed hyperlipidemia Discussion: Stable Lab discussed ICD-9 : 272.4 ICD-10 : E78.2 06/03/2018 Visit Diagnosis Plan: Chronic obstructive pulmonary di sease, unspecified Discussion: Stable ICD-9 : 496 ICD-10 : J44.9 06/03/2018 Visit Diagnosis Plan: Type 2 diabetes mellitus with hy perglycemia Discussion: Lab discussed Accuchecks daily Continue current meds ICD-9 : 250.02 ICD-10 : E11.65 06/03/2018 Visit Diagnosis Plan: Essential (primary) hypertension Discussion: Stable ICD-9 : 401.9 ICD-10 : I10 06/03/2018 Appointment: Neela Hyman WPtel: [address] [place] [address] [place] FOLLOW UP 06/03/2018 Visit Diagnosis Plan: Chronic obstructive pulmonary di sease, unspecified Discussion: solumedrol 125 mg given in office to assist with symptom management. instructed patient to continue with breathing treatments tid as needed. if no improvement by , call clinic. if worsening this week, call clinic or go to ED if after hours. increase fluid intake and perform deep breathing excercises at home, 10x/hr. ICD-9 : 496 ICD-10 : J44.9 05/04/2018 Appointment: Gely Harp [address] [place] [address] ACUTE ILLNESS 05/04/2018 Visit Diagnosis Plan: Localized edema Discussion: Cont inue lasix and potassium at every other day Recheck lab and fwup in 3mos Follow Up: 3 months ICD-9 : 782.3 ICD-10 : R60.0 03/03/2018 Appointment: Neela Hyman WPtel: [address] [place] [address] FOLLOW UP 03/03/2018 Patient Education: Patient Medication Summary Completed 03/03/2018 Visit Diagnosis Plan: Localized edema Discussion: Finch ge lasix and potassium to every other day Check Chem 7 in 2 weeks and fwup ICD-9 : 782.3 ICD-10 : R60.0 02/17/2018 Appointment: Neela Hyman WPtel: [address] [place] [address] FOLLOW UP 02/17/2018 Patient Education: Patient Medication Summary Completed 02/17/2018 Visit Diagnosis Plan: Mixed hyperlipidemia Discussion: Stable ICD-9 : 272.4 ICD-10 : E78.2 02/10/2018 Visit Diagnosis Plan: Type 2 diabetes mellitus without complications Discussion: Lab discussed continue current meds Accuchecks daily ICD-9 : 250.00 ICD-10 : E11.9 02/10/2018 Visit Diagnosis Plan: Chronic obstructive pulmonary di sease, unspecified Discussion: Trelagy 1p daily ICD-9 : 496 ICD-10 : J44.9 02/10/2018 Visit Diagnosis Plan: Essential (primary) hypertension Discussion: Will see if improves with lasix and potassium ICD-9 : 401.9 ICD-10 : I10 02/10/2018 Visit Diagnosis Plan: Localized edema Discussion: Lasi x and potassium and recheck 1 week ICD-9 : 782.3 ICD-10 : R60.0 02/10/2018 Appointment: Ne[facility]Ptel[phone] [facility] [facility] 02/10/2018 Patient Education: Patient Medication Summary Completed 02/10/2018 Visit Diagnosis Plan: Essential (primary) hypertension Discussion: Stable ICD-9 : 401.9 ICD-10 : I10 11/05/2017 Visit Diagnosis Plan: Type 2 diabetes mellitus with hy perglycemia Discussion: Lab discussed Accuchecks daily Go back to Y and exercise Follow Up: 3 months ICD-9 : 250.02 ICD-10 : E11.65 11/05/2017 Visit Diagnosis Plan: Mixed hyperlipidemia Discussion: Lab discussed Go back to routine exercise ICD-9 : 272.4 ICD-10 : E78.2 11/05/2017 Visit Diagnosis Plan: Cutaneous abscess of back [any p art, except buttock] Discussion: Incised with 11 blade scalpel after informed consent obtained and anesthesized with 1% lidocaine with epi, malodorous purulent material initially expressed then just bloody discharge, bactroban with pressure dressing applied Start Clindamycin with probiotic To Urgent Care or ER if worsening Will assess when returns and see if needs exised by surgeon as may be caruncle with loculated deep furrows ICD-9 : 682.2 ICD-10 : L02.212 11/05/2017 Appointment: Neela Hyman WPtel: [address] [facility] FOLLOW UP 11/05/2017 Patient Education: Patient Medication Summary Completed 11/05/2017 Patient Education: Patient Medication Summary Completed 11/03/2017 Care Plan: [place] : [address]-3 Pending 11/03/2017 Care Plan: LIPID PANEL LOINC : 45316-4 Pending 11/03/2017 Care Plan: CBC Pending 11/03/2017 Care Plan: A1C HPLC LOINC : 81295-6 Pending 11/03/2017 Visit Diagnosis Plan: Allergic urticaria Discussion: l gisel was placed under fluorescent lamp and showed no signs of fungal infection. 40 mg kenalog given to patient to assist with lesion and with lung function and chronic copd. also, triamcinolone cream ordered to be applied bid. instructed to call in one week if no improvement or worsening symptoms and will refer to dermatology for biopsy. patient and patient's verbalized understanding. ICD-9 : 708.0 ICD-10 : L50.0 09/09/2017 Appointment: Gely Harp [id number] ACUTE ILLNESS 09/09/2017 Patient Education: Patient Medication Summary Completed 09/09/2017 Visit Diagnosis Plan: Acute gastritis without bleeding Discussion: bactrim, flagyl sent out to cover for diverticulitis since patient is continuing to have symptoms of diarrhea and left quadrant pain. instructed to increase fluid intake and to stick with clear liquids for a few days. if worsening symptoms over the weekend, go to ED. ICD-9 : 535.00 ICD-10 : K29.00 08/07/2017 Visit Diagnosis Plan: Generalized enlarged lymph nodes Discussion: referral made for oncology to perform additional testing. discussed findings with patient and had long discussion regarding reasons for enlarged lymph nodes and patient verbalized understanding. informed patient that there is no definitive diagnosis at this time but cancer cannot be ruled out yet and patient stated he understood. instructed to call our office with any concerns of questions. ICD-9 : 785.6 ICD-10 : R59.1 08/07/2017 Appointment[id number] 08/07/2017 Patient Education: Patient Medication Summary Completed 08/07/2017 Visit Diagnosis Plan: Type 2 diabetes mellitus without complications Discussion: Accuchecks daily Lab discussed Continue current meds ICD-9 : 250.00 ICD-10 : E11.9 08/04/2017 Visit Diagnosis Plan: Essential (primary) hypertension Discussion: Increase Cardizem CD to 360mg daily ICD-9 : 401.9 ICD-10 : I10 08/04/2017 Appointment: Neela Hyman WPtel: [phone] [facility] FO[facility] UP 08/04/2017 Patient Education: Patient Medication Summary Completed 08/04/2017 Patient Education: Patient Medication Summary Completed 07/31/2017 Care Plan: [place] : [address]-9 Pending 07/31/2017 Care Plan: ASSAY THYROID STIM HORMONE Pen ding 07/31/2017 Care Plan: LIPID PANEL LOINC : 58471-4 Pending 07/31/2017 Care Plan: CBC Pending 07/31/2017 Care Plan: A1C HPLC LOINC : 96927-6 Pending 07/31/2017 Patient Education: Patient Medication Summary Completed 06/19/2017 Patient Education: Patient Medication Summary Completed 06/09/2017 Care Plan: CT SOFT TISSUE [place] : [address]-9 Pending 06/09/2017 Visit Diagnosis Plan: Acute sialoadenitis Discussion: improved, continue with current antibiotics. if not better by next week, call or rtc and will refer to ent. if worsens or new symptoms develop, call or rtc as well. ICD-9 : 527.2 ICD-10 : K11.21 06/04/2017 Visit Diagnosis Plan: Zoster without complications Dis cussion: improved, continue with current regimen. call or rtc if spreads or does not relieve. ICD-9 : 053.9 ICD-10 : B02.9 06/04/2017 Appointment: Gely Harp [address] [place], [place] [id number] ACUTE ILLNESS 06/04/2017 Patient Education: Patient Medication Summary Completed 06/04/2017 Visit Diagnosis Plan: Acute sialoadenitis Discussion: cleocin prescribed bid for 7 days. instructed patient to come back to clinic on friday and will re- evaluate swelling. if no improvement, will refer to dr. davidson for possible drainage. if worsening by then, call or rtc also. ICD-9 : 527.2 ICD-10 : K11.21 06/02/2017 Visit Diagnosis Plan: Zoster without complications Dis cussion: discussed disease and incubation period, when patient is no longer contagious. treated with acyclovir 5x a day for a week. ICD-9 : 053.9 ICD-10 : B02.9 06/02/2017 Appointment: Gely Harp [address] [id number] ACUTE ILLNESS 06/02/2017 Patient Education: Patient Medication Summary Completed 06/02/2017 Visit Diagnosis Plan: Mixed hyperlipidemia Discussion: Stable ICD-9 : 272.4 ICD-10 : E78.2 05/05/2017 Visit Diagnosis Plan: Essential (primary) hypertension Discussion: Increase Cardizem ER to 300mg q HS BP check in 1month ICD-9 : 401.9 ICD-10 : I10 05/05/2017 Visit Diagnosis Plan: Type 2 diabetes mellitus without complications Discussion: Continue current meds Accuchecks daily Follow Up: 3 months ICD-9 : 250.00 ICD-10 : E11.9 05/05/2017 Appointment: Neela Hyman WPtel: [phone] [facility] FOLLOW UP 05/05/2017 Patient Education: Patient Medication Summary Completed 05/05/2017 Patient Education: Patient Medication Summary Completed 05/01/2017 Care Plan: A1C HPLC [facility] : 28381-5 Pending 05/01/2017 Visit Diagnosis Plan: Chronic obstructiv e pulmonary disease with acute lower respiratory infection Discussion: breathing treatment given in office. after treatment, continued to have wheezes but patient stated he felt better with decreased respiratory distress. breo refilled and instructed to use daily. instructed to keep using nebulizer every 4 hours. prednisone prescribed for 5 days at low dose as patient has difficult time tolerating high doses. also, levquin prescribed to assist with bacterial infection and multiple co-morbidities. ICD-9 : 491.22 ICD-10 : J44.0 04/10/2017 Visit Diagnosis Plan: Impacted cerumen, bilateral Disc ussion: instructed to use debrox bid for 4 days. (has at home) informed him that he needs to refrain from using hearing aids for atleast 2 hours after using debrox. ICD-9 : 380.4 ICD-10 : H61.23 04/10/2017 Appointment: [facility] Harp [id number] ACUTE ILLNESS 04/10/2017 Patient Education: Patient Medication Summary Completed 04/10/2017 Appointment: Neela Hyman WPtel: [address] [place], [place] [id number] INJECTION 03/28/2017 Patient Education: Patient Medication Summary Completed 03/28/2017 Visit Diagnosis Plan: Essential (primary) hypertension Discussion: Stable ICD-9 : 401.9 ICD-10 : I10 02/03/2017 Visit Diagnosis Plan: Type 2 diabetes mellitus without complications Discussion: Lab discussed Accuchecks daily Continue current meds Follow Up: 3 months ICD-9 : 250.00 ICD-10 : E11.9 02/03/2017 Visit Diagnosis Plan: Chronic obstructive pulmonary di sease, unspecified Discussion: Stable ICD-9 : 496 ICD-10 : J44.9 02/03/2017 Appointment: Neela Hyman WPtel: [address] [place], [place] [id number] FOLLOW UP 02/03/2017 Patient Education: Patient Medication Summary Completed 02/03/2017 Patient Education: Patient Medication Summary Completed 01/30/2017 Care Plan: [place] : [address]-3 Pending 01/30/2017 Care Plan: LIPID PANEL LOINC : 44444-6 Pending 01/30/2017 Care Plan: CBC Pending 01/30/2017 Care Plan: A1C HPLC LOINC : 73864-9 Pending 01/30/2017 Care Plan: ASSAY OF PSA TOTAL LOINC : 12 841-3 Pending 01/30/2017 Visit Diagnosis Plan: Essential (primary) hypertension Discussion: Stable ICD-9 : 401.9 ICD-10 : I10 10/30/2016 Visit Diagnosis Plan: Chronic obstructive pulmonary di sease, unspecified Discussion: Doing pulmonary rehab and following with Dr. Levi Follow Up: As needed ICD-9 : 496 ICD-10 : J44.9 10/30/2016 Visit Diagnosis Plan: Type 2 diabetes mellitus with hy perglycemia Discussion: Lab discussed Accuchecks daily Continue current meds Follow Up: 3 months ICD-9 : 250.02 ICD-10 : E11.65 10/30/2016 Appointment: Neela Hyman WPtel: [address] [place], [place] [address] [place] / lm ~sl 10/30 confirmed~sl FOLLOW UP 11/2016 Patient Education: Patient Medication Summary Completed 10/30/2016 Patient Education: Patient Medication Summary Completed 10/24/2016 Visit Diagnosis Plan: Acute bronchitis, unspecified Di scussion: Patient sounds and looks much improved Continue current regimen Keep appt with Dr Levi for Friday Follow up PRN ICD-9 : 466.0 ICD-10 : J20.9 08/30/2016 Appointment: Sammi Najera [facility] [facility] [place] 4/ rang and rang rang / rang and rang called cell and no vm~sl FOLLOW UP 08/30/2016 Patient Education: Patient Medication Summary Completed 08/30/2016 Visit Diagnosis Plan: Acute bronchitis, unspecified Di scussion: Exam more stable today than his last flare Will hold of CXR and antibiotics today Will repeat prednisone as above since he did well with it and had no adverse side effects Refills of his singulair and nebs given Recheck in office in 2 days or sooner if worsening Will refer to Pulm to have further evaluation and PFT since patient is having recurrent flares ICD-9 : 466.0 ICD-10 : J20.9 08/27/2016 Appointment: Sammi Najera [facility] [facility] FO[facility] 08/27/2016 Patient Education: Patient Medication Summary Completed 08/27/2016 Care Plan: Referral Order SNOMED-CT : [id number] Pending 08/27/2016 Visit Diagnosis Plan: Type 2 diabetes mellitus without complications Discussion: Continue metformin and accuchecks daily Follow Up: 4 months ICD-9 : 250.00 ICD-10 : E11.9 07/02/2016 Visit Diagnosis Plan: Mixed hyperlipidemia Discussion: Lab discussed Change zocor to lipitor with next refill ICD-9 : 272.4 ICD-10 : E78.2 07/02/2016 Visit Diagnosis Plan: Essential (primary) hypertension Discussion: Continue current meds and monitor ICD-9 : 401.9 ICD-10 : I10 07/02/2016 Appointment: Neela Hyman WPtel: [address] [place], [place] [address] 07/01 lorrie` FOLLOW UP 7 Patient Education: Patient Medication Summary Completed 07/02/2016 Patient Education: Patient Medication Summary Completed 06/27/2016 Care Plan: LIPID PANEL LOINC : 32338-1 Pending 06/27/2016 Care Plan: COMPREH[place] : [address]76[address]-8 Pending 06/27/2016 Care Plan: A1C HPLC LOINC : 22626-5 Pending 06/27/2016 Visit Diagnosis Plan: Acute bronchitis, unspecified Di scussion: Patient does appear and sound improved, pulse ox is improved He does have a low grade fever this morning Will continue current POC with close monitoring this weekend He is adamant for no steroids but did send out prednisone in case his wheezing, tightness, etc worsens this weekend Follow up johnny if worsening ICD-9 : 466.0 ICD-10 : J20.9 06/14/2016 Appointment: Sammi Najera [address] [place], [place] [id number] FOLLOW UP 06/14/2016 Patient Education: Patient Medication Summary Completed 06/14/2016 Visit Diagnosis Plan: Acute bronchitis, unspecified Di scussion: Albuterol neb given in clinic Patient reports he feels much better after treatment BS are still slightly wheezy and rhonchi present Is no longer diaphoretic DC cefdinir - start levaquin now Will avoid steroids since patient is very sensitive to them and has adverse reactions - may have to try low dose if not improving though Start nebs back up at home CXR now Recheck in clinic in the am Go to ER or UC if worsening tonight ICD-9 : 466.0 ICD-10 : J20.9 06/13/2016 Appointment: Sammi Najera [address] [place], [place] [id number] ACUTE ILLNESS 06/13/2016 Patient Education: Patient Medication Summary Completed 06/13/2016 Care Plan: CHEST X-RAY 2VW FRONTAL&LATL LOINC : 66856-5 Pending 06/13/2016 Visit Plan: Increase metoprolol to 100mg po BID BP readings and BP check in 1month 05/14/2016 Appointment: Neela Hyman WPtel: [address] [place], [place] [id number] 05/13 rang and rang`sl FOLLOW UP 6 Patient Education: Patient Medication Summary Completed 05/14/2016 Visit Plan: Increase metoprolol to 50mg BID BP check in 1 week f/u BP appt 2 weeks consider musculoskeletal if pain returns 04/29/2016 Appointment: Neela Hyman WPtel: [address] [place] [address] 04/25 confimred~sl FOLLOW UP 04/29/2016 Patient Education: Patient Medication Summary Completed 04/29/2016 Visit Plan: Stat CT scan of abdomen/pelv is to look for stone Hydrate and use tramadol prn Increase metoprolol to 25mg po BID Will see urology pending CT scan results 04/22/2016 Appointment: Neela Hyman WPtel: [address] [place] [address] 04/17 confirmed-sp ACUTE ILLNESS 04/22/2016 Patient Education: Patient Medication Summary Completed 04/22/2016 Care Plan: CT ABDOMEN W/O DYE LOINC : 36 103-0 Pending 04/22/2016 Care Plan: CT PELVIS W/O DYE LOINC : 361 08-9 Pending 04/22/2016 Visit Plan: Lab discussed Accuchecks richard ly Add metoprolol ER 25mg q HS Will split meds to take some in AM and some at night--list given Defers flu shot 04/01/2016 Appointment: Neela Hyman WPtel: [address] [place], [place] [id number] FOLLOW UP 04/01/2016 Patient Education: Patient Medication Summary Completed 04/01/2016 Patient Education: [facility] - [employer]aving [employer] - 18-64 - Dynamic Heber l ID Completed 04/01/2016 Patient Education: Patient Medication Summary Completed 03/28/2016 Care Plan: A1C HPLC LOINC : 14649-3 Pending 03/28/2016 Care Plan: [place] : [address]-6 Pending 03/28/2016 Visit Plan: Lab discussed Continue curre nt meds Accuchecks daily 11/30/2015 Appointment: Neela Hyman WPtel: [address] [place] [address] 11/28 confirmed~sl FOLLOW UP 11/30/2015 Patient Education: Patient Medication Summary Completed 11/30/2015 Appointment: Neela Hyman WPtel: [address] [place] [address] [place] RESCHEDULED 11/28/2015 Patient Education: Patient Medication Summary Completed 11/23/2015 Care Plan: COMPREHEN METABOLIC PANEL [place] : 04477-2 Pending 11/23/2015 Care Plan: LIPID PANEL LOINC : 55622-2 Pending 11/23/2015 Care Plan: CBC Pending 11/23/2015 Care Plan: A1C HPLC LOINC : 80004-1 Pending 11/23/2015 Visit Plan: Lab discussed Accuchecks richard ly Continue current meds Cymbalta helping with feet and mood 08/29/2015 Appointment: Neela Hyman WPtel: [address] [place] [address] FOLLOW UP 08/29/2015 Patient Education: Patient Medication Summary Completed 08/29/2015 Visit Plan: Check CXR Stop all steroids and steroid inhalers Use SVN with but change to duoneb Add singulair for allergy etiology Change fluoxetine to cymbalta 60mg daily Viagra samples given to try prn--warned of no nitrates 08/14/2015 Appointment: Neela Hyman WPtel: [address] [place], [place] [phone] lm to reschedule ~sl 07/27 lm ~sl 08/09 busy 08/10 fer rosales-riley Annual Well Visit 08/14/2015 Patient Education: Patient Medication Summary Completed 08/14/2015 Care Plan: CHEST X-RAY 2VW FRONTAL&LATL LOINC : 65070-3 Ordered 08/14/2015 Visit Plan: Decadron 8mg given in clinic Follow with oral prednisone Sample of symbicort with instructions of use reviewed Continue zyrtec and add benadryl at bedtime PFT to be done in 2-3 weeks after this current flare is under control to look for underlying asthma or COPD that is being triggered in the spring each year Continue virginia nebs every 4-6 hours Follow up in the next 1-2 days if not improving as expected 08/09/2015 Appointment: Sammi Najera [address] [id number] ER Follow UP 08/09/2015 Patient Education: Patient Medication Summary Completed 08/09/2015 Patient Education: [facility] - Saving AutoInj - 18-64 - Dynamic Heber l ID Completed 08/09/2015 Patient Education: Symbicort - 18-64 - eCopay Completed 08/09/2015 Patient Education: Patient Medication Summary Completed 08/08/2015 Visit Plan: Lab discussed Accuchecks richard nilda Patient admits has changed eating habits--was eating twinkies and cookies routinely and has stopped buying those Will keep meds same for now Justino got hearing aids and is doing well with it 05/22/2015 Appointment: Neela Hyman WPtel: [address] [place], [place] [phone] 05/17 confirmed~sl FOLLOW UP 05/22/2015 Patient Education: Patient Medication Summary Completed 05/22/2015 Patient Education: Patient Medication Summary Completed 05/15/2015 Visit Plan: Obtain EMGs done at [facility] from when fractured left arm Lab discussed Accuchecks daily 02/13/2015 Appointment: Neela Hyman WPtel: [address] [place], [place] [phone] 02/10 confrimed FOLLOW UP 02/13/2015 Patient Education: Patient Medication Summary Completed 02/13/2015 Patient Education: Patient Medication Summary Completed 02/09/2015 Visit Plan: discussed lab add fenofibrat e 134mg po daily recheck fasting lab in 3 months, CBC, CMP, Lipids, hgb AIC 11/07/2014 Appointment: Neela Hyman WPtel: [address] [place], [place] [phone] 11/04 appt confirmed cn FOLLOW UP 015 Patient Education: Patient Medication Summary Completed 11/07/2014 Patient Education: Patient Medication Summary Completed 11/03/2014 Visit Plan: Continue loratadine 10mg richard ly Notify if symptoms return 10/04/2014 Appointment: Neela Hyman WPtel: [address] [place] [address] confirmed on 10/03 at 2:42pm FOLLOW UP 09/23 Patient Education: Patient Medication Summary Completed 10/04/2014 Appointment: Neela Hyman WPtel: [address] [place] [address] ACUTE ILLNESS 09/28/2014 Appointment: Loren Garza WPtel: [address] [place] [address] FOLLOW UP 09/22/2014 Patient Education: Patient Medication Summary Completed 09/22/2014 Appointment: Loren Garza WPtel: [address] [place] [address] ACUTE ILLNESS 09/21/2014 Patient Education: Patient Medication Summary Completed 09/21/2014 Patient Education: [facility] - Saving AutoInj - 18+ - Dynamic Portal ID Completed 09/21/2014 Visit Plan: Lab discussed Continue daily accuchecks Continue current meds 06/28/2014 Appointment: Neela Hyman WPtel: [address] [place], [place] [phone] FOLLOW UP 06/28/2014 Patient Education: Patient Medication Summary Completed 06/28/2014 Patient Education: Patient Medication Summary Completed 06/23/2014 Appointment: Sarah Sunshine WPtel: [address] [place], [place] [phone] ACUTE ILLNESS 06/10/2014 Patient Education: Patient Medication Summary Completed 06/10/2014 Patient Education: [facility] - Saving AutoInj - 18+ - Dynamic Portal ID Completed 06/10/2014 Visit Plan: Lab discussed Continue daily accuchecks Continue current meds 03/29/2014 Appointment: Neela Hyman WPtel: [address] [place], [place] [phone] FOLLOW UP 03/29/2014 Patient Education: Patient Medication Summary Completed 03/29/2014 Patient Education: Patient Medication Summary Completed 03/23/2014 Visit Plan: Lab discussed Continue curre nt meds and accuchecks See surgery for removal of hand lesion 11/30/2013 Appointment: Neela Hyman WPtel: [address] [place], [place] [phone] 11/29 no answer FOLLOW UP 11/30/2013 Patient Education: Patient Medication Summary Completed 11/30/2013 Visit Plan: Lab discussed Continue curre nt meds 08/03/2013 Appointment: Neela Hyman WPtel: [address] [place] [address] FOLLOW UP 08/03/2013 Patient Education: Patient Medication Summary Completed 08/03/2013 Visit Plan: Lab Discussed Will continue current meds and pt will get back on diet/exercise Check lab in 4mos and fwup 04/06/2013 Appointment: Neela Hyman WPtel: [address] [place], [place] [phone] FOLLOW UP 04/06/2013 Patient Education: Patient Medication Summary Completed 04/06/2013 Visit Plan: Lab discussed Continue daily accuchecks 12/01/2012 Appointment: Neela Hyman WPtel: [address] [place], [place] [phone] 11/30 no answer FOLLOW UP 12/01/2012 Patient Education: Patient Medication Summary Completed 12/01/2012 Visit Plan: Continue current meds and da russell accuchecks Lab discussed 08/04/2012 Appointment: Neela Hyman WPtel: [address] [place] [address] FOLLOW UP 08/04/2012 Patient Education: Patient Medication Summary Completed 08/04/2012 Appointment: Neela Hyman WPtel: [address] [place], [place] [phone] [facility] 06/01/2012 Patient Education: Patient Medication Summary Completed 06/01/2012 Appointment: Janet Jean Baptiste WPtel: [address] [place], [place] [phone] FOLLOW UP 05/29/2012 Patient Education: Patient Medication Summary Completed 05/29/2012 Visit Plan: pt states Dr. Hyman told h is to increase his Prozac dose while she was talking to her at [facility]. Discussed that pt. should not increase or decrease dosage without Dr's knowledge. Pt. will seek hearing test here in town at the hearing aid place on [address]. Discussed that ear pain is likely caused by sinus pressure. Pt. will notify if no improvement. 05/25/2012 Appointment: Janet Jean Baptiste WPtel: [address] [place], [place] [phone] ACUTE ILLNESS 05/25/2012 Patient Education: Patient Medication Summary Completed 05/25/2012 Visit Plan: Continue current meds Contin ue daily accuchecks but alternate times Increase fish oil to 3gm daily 04/07/2012 Appointment: Neela Hyman WPtel: [address] [place], [place] [phone] 04/06 FOLLOW UP 04/07/2012 Patient Education: Patient Medication Summary Completed 04/07/2012 Appointment: Janet Jean Baptiste WPtel: [address] [place], [place] [phone] ACUTE ILLNESS 12/16/2011 Patient Education: Patient Medication Summary Completed 12/16/2011 Visit Plan: Increase 12/03/2011 Appointment: Neela Hyman WPtel: [address] [place], [place] [phone] FOLLOW UP 12/03/2011 Patient Education: Patient Medication Summary Completed 12/03/2011 Visit Plan: Continue current meds Contin ue accuchecks 08/29/2011 Appointment: Neela Hyman WPtel: [address] [place], [place] [phone] [place] FOLLOW UP 08/29/2011 Patient Education: Patient Medication Summary Completed 08/29/2011 Visit Plan: Continue current meds except restart zocor 05/30/2011 Appointment: Neela Hyman WPtel: [address] [place], [place] [phone] [place] FOLLOW UP 05/30/2011 Patient Education: Patient Medication Summary Completed 05/30/2011 Visit Plan: Continue tennis elbow strap May go back to weight-lifing--light weigts every other day 01/29/2011 Appointment: Neela Hyman WPtel: [address] [place] [address] [place] FOLLOW UP 01/29/2011 Patient Education: Patient Medication Summary Completed 01/29/2011 Visit Plan: Continue tennis elbow strap and anti-inflammatories 01/14/2011 Appointment: Neela Hyman WPtel: [address] [place] [address] FOLLOW UP 01/14/2011 Appointment: Janet Jean Baptiste WPtel: [address] [place] [address] NEW PATIENT 01/14/2011 Patient Education: Patient Medication Summary Completed 01/14/2011 Appointment: Neela Hyman WPtel: [address] [place] [address] FOLLOW UP 01/08/2011 Appointment: Neela Hyman WPtel: [address] [place] [address] FOLLOW UP 01/01/2011 Appointment: Neela Hyman WPtel: [address] [place], [place] [phone] UA 01/01/2011 Patient Education: Patient Medication Summary Completed 01/01/2011 Visit Plan: Veramyst samples given. Pt. will let me know if Lauren or Singulair samples help. Septra DS twice daily for 10 days. We can phone in a preventative allergy RX if Lauren or Singulair works better. Pt. will notify if no improvment. May add Medrol dose pack if indicated. Discussed at length carb count (goal of 20-80 carbs) daily. Carb counter given. 11/29/2010 Appointment: Janet Jean Baptiste WPtel: [address] [place] [address] ACUTE ILLNESS 11/29/2010 Patient Education: Patient Medication Summary Completed 11/29/2010 Visit Plan: Cont current meds Check CMP, Lipids, HbA1C 08/28/2010 Appointment: Neela Hyman WPtel: [address] [place] [address] FOLLOW UP 08/28/2010 Patient Education: Patient Medication Summary Completed 08/28/2010 Visit Plan: Cont current meds and accuch ecks Add Zocor 40mg q HS Check Lipids and HbA1C in 3mos 06/05/2010 Appointment: Neela Hyman WPtel: [address] [place] [address] FOLLOW UP 06/05/2010 Patient Education: Patient Medication Summary Completed 06/05/2010 Visit Plan: Check Lipids and HbA1C 02/05/2010 Appointment: Neela Hyman WPtel: [address] [place] [address] FOLLOW UP 02/05/2010 Patient Education: Patient Medication Summary Completed 02/05/2010 Visit Plan: HbA1C in 3mos. Continue Accu checks BID alternating times. Check HbA1C, CMP, Lipids 10/09/2009 Appointment: Neela Hyman WPtel: [address] [place] [address] FOLLOW UP 10/09/2009 Patient Education: Patient Medication Summary Completed 10/09/2009 Visit Plan: Saline nasal flushes prn. Ty lenol/Motrin prn headache. Notify if persists/symptoms worsening. 08/22/2009 Appointment: Neela Hyman WPtel: [address] [place] [address] ACUTE ILLNESS 08/22/2009 Patient Education: Patient Medication Summary Completed 08/22/2009 Referral: Aubrey Rand WPtel: [address] [place], [place] [phone] [place] Office will verfy his insurance then they will contact patient Completed Referral: Shahbaz Brennan WPtel: [address] [facility] [address] [id number] [place] Referral Completed Referral: Ion Levi [address] [facility] C&D [id number] [place] Referral Appointment Requested Referral: AmitaIon [address] [facility] C&D [id number] [place] Referral Appointment Requested Instructions Comment . Increase metoprolol to 100mg po BID BP readings and BP check in 1month . Increase metoprolol to 50mg BID BP check in 1 week; f/u BP appt 2 weeks consider musculoskeletal if pain returns . Stat CT scan of abdomen/pelvis to look for stone Hydrate and use tramadol prn Increase metoprolol to 25mg po BID Will see urology pending CT scan results . Lab discussed Accuchecks daily Add metoprolol ER 25mg q HS Will split meds to take some in AM and some at night--list given Defers flu shot . Lab discussed Continue current meds Accuchecks daily . Lab discussed Accuchecks daily Continue current meds Cymbalta helping with feet and mood . Check CXR Stop all steroids and steroid inhalers Use SVN with but change to duoneb Add singulair for allergy etiology Change fluoxetine to cymbalta 60mg daily Viagra samples given to try prn--warned of no nitrates . Decadron 8mg given in clinic Follow with oral prednisone Sample of symbicort with instructions of use reviewed Continue zyrtec and add benadryl at bedtime PFT to be done in 2-3 weeks after this current flare is under control to look for underlying asthma or COPD that is being triggered in the spring each year Continue virginia nebs every 4-6 hours Follow up in the next 1-2 days if not improving as expected . Lab discussed Accuchecks daily Patient admits has changed eating habits--was eating twinkies and cookies routinely and has stopped buying those Will keep meds same for now Justino got hearing aids and is doing well with it . Obtain EMGs done at [facility] from when fractured left arm Lab discussed Accuchecks daily . discussed lab add fenofibrate 134mg po daily recheck fasting lab in 3 months, CBC, CMP, Lipids, hgb AIC . Continue loratadine 10mg daily Notify if symptoms return . Lab discussed Continue daily accuchecks Continue current meds . Lab discussed Continue daily accuchecks Continue current meds . Lab discussed Continue current meds and accuchecks See surgery for removal of hand lesion . Lab discussed Continue current meds . Lab Discussed Will continue current meds and pt will get back on diet/exercise Check lab in 4mos and fwup . Lab discussed Continue daily accuchecks . Continue current meds and daily accuch ecks Lab discussed . pt states Dr. Hyman told his to increase his Prozac dose while she was talking to her at [facility]. Discussed that pt. should not increase or decrease dosage without 's knowledge. Pt. will seek hearing test here in town at the hearing aid place on [address]. Discussed that ear pain is likely caused by sinus pressure. Pt. will notify if no improvement. . Continue current meds Continue daily accuchecks but alternate times Increase fish oil to 3gm daily . Increase . Continue current meds Continue accuchecks . Continue current meds except restart z ocor . Continue tennis elbow strap May go back to weight-lifing--light weigts every other day . Continue tennis elbow strap and anti-i nflammatories . Veramyst samples given. Pt. will let me know if Lauren or Singulair samples help. Septra DS twice daily for 10 days. We can phone in a preventative allergy RX if Lauren or Singulair works better. Pt. will notify if no improvment. May add Medrol dose pack if indicated. Discussed at length carb count (goal of 20-80 carbs) daily. Carb counter given. . Cont current meds Check CMP, Lipids, HbA1C . Cont current meds and accuchecks Add Zocor 40mg q HS Check Lipids and HbA1C in 3mos . Check Lipids and HbA1C . HbA1C in 3mos. Continue Accuchecks B ID alternating times. Check HbA1C, CMP, Lipids . Saline nasal flushes prn. Tylenol/Motr in prn headache. Notify if persists/symptoms worsening. Medical Equipment No Medical Equipment data Health Concerns Section Health Concerns data not found Goals Section Goals data not found Interventions Section Interventions data not found Health Status Evaluations/Outcomes Section Health Status Evaluations/Outcomes data not found Advance Directives Filename Date 12 Living Will2 06/06/2011
--- OUTSIDE RECORDS SUMMARY | 2019-12-09 08:52 | XMS REPORT | CCD ---
Author Author Michael Hyman D.O. Organization [facility] Address [address] [place] [address] Phone Care Team Providers Care Snuff Box Finisher Name Role Phone Neela Hyman D.O., PP Unavailable CCM Unavailable Summary Purpose Interface Exchange Insurance Providers Payer name Policy type / Coverage type Covered constitution party ID Effective Begin Date Effective End Date ABS FOR [employer] Commercial Insurance [id number] Unknown Family History Family History data not found Social History Social History Element Codes Description Effective Dates Marital status Unknown 05/30/[address]: 5913188 Former smoker quit 25 years ago 01/01/2011 [...] Fill Instructions Lasix 40 mg tablet RxNorm: 360160 TAKE ONE TABLET BY MOUTH EVERY DA Y 12/02/2019 05/29/2020 Active diltiazem ER 360 mg capsule,24 hr,extended release RxNorm: 8 93803 TAKE ONE CAPSULE BY MOUTH AT BEDTIME -REPLACES 300MG 12/02/2019 05/29/2020 Active potassium chloride ER 20 mEq tablet,extended release RxNorm: 787580 TAKE ONE TABLET BY MOUTH TWO TIMES A DAY 11/01/2019 01/29/2020 Active Zocor 40 mg tablet RxNorm: 291287 TAKE ONE TABLET BY M OUTH EVERY NIGHT AT BEDTIME 10/20/2019 04/16/2020 Active MagOx 400 mg (241.3 mg magnesium) tablet RxNorm: 572736 TAKE ONE TABLET BY MOUTH EVERY DAY 10/20/2019 04/16/2020 Active fenofibrate micronized 134 mg capsule RxNorm: 860171 1 Capsule( s) Oral QD 09/22/2019 03/20/2020 Active metformin 500 mg tablet RxNorm: 997722 2 Tablet(s) Oral two afshan es a day 09/22/2019 12/20/2019 Active Benicar 40 mg tablet RxNorm: 261985 1 Tablet(s) Oral QD 09/22/2019 Active Singulair 10 mg tablet RxNorm: 766020 TAKE ONE TABLET BY MOUTH EVERY EVENING 09/22/2019 03/20/2020 Active Reselected prescribe r from [facility] to [facility] Lasix 40 mg tablet RxNorm: 193352 1 Tablet(s) Oral QD 08/24/201910/25 Inactive duloxetine 60 mg capsule,delayed release RxNorm: 669378 TAKE ONE CAPSULE BY MOUTH EVERY DAY 08/16/2019 02/11/2020 Active metoprolol succinate ER 100 mg tablet,extended release 24 hr RxNorm: 767512 TAKE ONE TABLET BY MOUTH TWICE A DAY 08/16/2019 05/11/2020 Active potassium chloride ER 20 mEq tablet,extended release RxNorm: 479791 1 Tablet(s) Oral two times a day 07/22/2019 10/19/2019 Inactive metformin 500 mg tablet RxNorm: 926010 2 Tablet(s) Oral two afshan es a day 07/13/2019 09/21/2019 Inactive Keflex 500 mg capsule RxNorm: 750742 1 Capsule(s) Oral three ti mes a day 07/06/2019 07/13/2019 Inactive Singulair 10 mg tablet RxNorm: 628227 TAKE ONE TABLET BY MOUTH EVERY EVENING 07/06/2019 09/21/2019 Inactive Reselected prescribe r from [facility] to [facility] Singulair 10 mg tablet RxNorm: 321803 TAKE ONE TABLET BY MOUTH EVERY EVENING 06/22/2019 07/05/2019 Inactive Reselected prescribe r from PEG [facility]HER to [facility] Zocor 40 mg tablet RxNorm: 388603 TAKE ONE TABLET BY M OUTH EVERY NIGHT AT BEDTIME 06/21/2019 10/19/2019 Inactive MagOx 400 mg (241.3 mg magnesium) tablet RxNorm: 893909 1 Table t(s) Oral QD 06/21/2019 08/20/2019 Inactive diltiazem ER 360 mg capsule,24 hr,extended release RxNorm: 8 56719 TAKE ONE CAPSULE BY MOUTH AT BEDTIME -REPLACES 300MG 05/17/2019 11/12/2019 Inactive MagOx 400 mg (241.3 mg magnesium) tablet RxNorm: 512889 1 Table t(s) Oral QD 04/26/2019 06/20/2019 Inactive Lasix 40 mg tablet RxNorm: 092271 40 MG PO DAILY 04/12/2019 08/23/2019 Inactive Benicar 40 mg tablet RxNorm: 870496 1 Tablet(s) Oral QD 03/29/2019 Inactive potassium chloride ER 20 mEq tablet,extended release RxNorm: 729817 1 Tablet(s) Oral two times a day 03/29/2019 06/27/2019 Inactive potassium chloride ER 20 mEq tablet,extended release RxNorm: 051944 1 Tablet(s) Oral QD 03/29/2019 03/28/2019 Inactive Benicar 40 mg tablet RxNorm: 217450 1 Tablet(s) Oral QD 03/29/2019 Inactive MagOx 400 mg (241.3 mg magnesium) tablet RxNorm: 049610 1 Table t(s) Oral QD 03/29/2019 04/25/2019 Inactive metformin 500 mg tablet RxNorm: 277230 2 Tablet(s) Oral two afshan es a day 03/29/2019 07/12/2019 Inactive fenofibrate micronized 134 mg capsule RxNorm: 755833 TA KE ONE CAPSULE BY MOUTH EVERY DAY 03/05/2019 09/21/2019 Inactive duloxetine 60 mg capsule,delayed release RxNorm: 171343 1 Capsu le(s) PO QD 01/28/2019 07/26/2019 Inactive Trelegy Ellipta 100 mcg-62.5 mcg-25 mcg powder for inhalatio n RxNorm: 7211754 1 Puff(s) INH QD 01/06/2019 12/31/2019 Active 90 day supply prednisone 20 mg tablet RxNorm: 752481 1 Tablet(s) PO T ID for 3 days then 1 po BID for 3 days then 1 po daily for 3 days 01/05/2019 03/28/2019 Inacti ve metformin ER 1,000 mg tablet,extended release 24hr RxNorm: 1 704266 TAKE TWO TABLETS (1000MG) BY MOUTH TWO TIMES A DAY 12/22/2018 07/13/2019 Inacti ve Diflucan 100 mg tablet RxNorm: 678688 1 Tablet(s) PO QD 12/09/2018 Inactive prednisone 20 mg tablet RxNorm: 092095 1 Tablet(s) PO B ID for 4 days then 1 po daily for 4 days 11/24/2018 01/04/2019 Inactive albuterol sulfate 2.5 mg/3 mL (0.083 %) solution for n ebulization RxNorm: 331667 3 Milliliter(s) INH ONE VIAL VIA NEBULIZER EVERY 4 HOURS 07/21/2019 Inactive [AttnRPh: Saving apply/adjudicate RxGRP: SG20 RxBIN:[id number] RxPCN: ID#:[id number]] Trelegy Ellipta 100 mcg-62.5 mcg-25 mcg powder for inhalatio n RxNorm: 6651190 1 Puff(s) INH QD 10/27/2018 01/06/2019 Inactive 90 day supply diltiazem ER 360 mg capsule,24 hr,extended release RxNorm: 8 57294 TAKE ONE CAPSULE BY MOUTH AT BEDTIME -REPLACES 300MG 10/13/2018 04/10/2019 Inactive metoprolol succinate ER 100 mg tablet,extended release 24 hr RxNorm: 140811 TAKE ONE TABLET BY MOUTH TWICE A DAY 10/13/2018 07/09/2019 Inactive Trelegy Ellipta 100 mcg-62.5 mcg-25 mcg powder for inhalatio n RxNorm: 4455399 INHALE ONE PUFF ONCE DAILY 09/07/2018 10/27/2018 Inactive Levaquin 750 mg tablet RxNorm: 420790 1 Tablet(s) PO QD 09/07/2018 Inactive Levaquin 750 mg tablet RxNorm: 365833 1 Tablet(s) PO QD 09/07/2018 Inactive prednisone 20 mg tablet RxNorm: 425967 2 Tablet(s) PO QAM 08/13/2018 08/19/2018 Inactive Levaquin 500 mg tablet RxNorm: 358513 1 Tablet(s) PO QD 08/11/2018 Inactive fenofibrate micronized 134 mg capsule RxNorm: 182667 TA KE ONE CAPSULE BY MOUTH EVERY DAY 08/10/2018 02/05/2019 Inactive prednisone 20 mg tablet RxNorm: 710706 1 Tablet(s) PO BID 07/16/2018 07/20/2018 Inactive doxycycline hyclate 100 mg capsule RxNorm: 4027309 1 Capsule(s) PO BID 07/13/2018 07/22/2018 Inactive duloxetine 60 mg capsule,delayed release RxNorm: 771310 TAKE ONE CAPSULE BY MOUTH ONCE A DAY 07/08/2018 01/28/2019 Inactive Lasix 40 mg tablet RxNorm: 391574 1 TABLET(S) PO QAM 06/08/201809/05 Inactive potassium chloride ER 20 mEq tablet,extended release(p art/cryst) RxNorm: 0524088 1 TABLET(S) PO QD 06/08/2018 09/05/2018 Inactive metformin ER 1,000 mg tablet,extended release 24hr RxNorm: 1 637386 TAKE TWO TABLETS (1000MG) BY MOUTH TWO TIMES A DAY 06/01/2018 11/27/2018 Inacti ve Benicar HCT 40 mg-25 mg tablet RxNorm: 488041 TAKE ONE TABLET BY MOUTH ONCE DAILY 05/11/2018 03/28/2019 Inactive Zocor 40 mg tablet RxNorm: 247569 TAKE ONE TABLET BY M OUTH EVERY NIGHT AT BEDTIME 05/11/2018 06/20/2019 Inactive Trelegy Ellipta 100 mcg-62.5 mcg-25 mcg powder for inhalatio n RxNorm: 3289426 1 PUFF(S) INH QD 04/06/2018 07/04/2018 Inactive diltiazem ER 360 mg capsule,24 hr,extended release RxNorm: 8 19407 1 Capsule(s) PO QHS replaces 300mg dose 03/30/2018 09/25/2018 Inactive Trelegy Ellipta 100 mcg-62.5 mcg-25 mcg powder for inhalatio n RxNorm: 0969732 1 Puff(s) INH QD 02/24/2018 02/23/2018 Inactive Trelegy Ellipta 100 mcg-62.5 mcg-25 mcg powder for inhalatio n RxNorm: 4809765 1 Puff(s) INH QD 02/24/2018 02/23/2018 Inactive Trelegy Ellipta 100 mcg-62.5 mcg-25 mcg powder for inhalatio n RxNorm: 2251236 1 Puff(s) INH QD 02/24/2018 04/05/2018 Inactive Lasix 40 mg tablet RxNorm: 882141 1 Tablet(s) PO QAM 02/10/201803/11 Inactive potassium chloride ER 20 mEq tablet,extended release(p art/cryst) RxNorm: 0446113 1 Tablet(s) PO QD 02/10/2018 03/11/2018 Inactive fenofibrate micronized 134 mg capsule RxNorm: 403446 1 Capsule( s) PO QD 01/30/2018 07/28/2018 Inactive metoprolol succinate ER 100 mg tablet,extended release 24 hr RxNorm: 956526 TAKE ONE TABLET BY MOUTH TWICE A DAY 12/30/2017 09/25/2018 Inactive metformin ER 1,000 mg tablet,extended release 24hr RxNorm: 1 301588 1 Tablet(s) PO BID 11/17/2017 05/15/2018 Inactive [SAVINGS FOR NON -COVERED DRUGS -- BIN:612519, PCN: ASPROD1, Group: XXXXX, ID# [id number], Questions: . THIS IS NOT INSURANCE.] Benicar HCT 40 mg-25 mg tablet RxNorm: 322926 1 Tablet(s) PO QD 05/10/2018 Inactive [SAVINGS FOR NON-COVERED JESU GS -- BIN:089373, PCN: ASPROD1, Group: XXXXX, ID# [id number], Questions: . THIS IS NOT INSURANCE.] Bactroban 2 % topical cream RxNorm: 755127 Application TOP BID 10/2409/02/2018 Inactive clindamycin HCl 300 mg capsule RxNorm: 454401 2 Capsule(s) PO TID 0 11/05/2017 11/18/2017 Inactive duloxetine 60 mg capsule,delayed release RxNorm: 915986 Capsule(s) TAKE ONE CAPSULE BY MOUTH ONCE DAILY 09/24/2017 09/23/2017 Inactive triamcinolone acetonide 0.1 % topical ointment RxNorm: 0432362 1 TOP BID 09/09/2017 11/04/2017 Inactive Bactrim DS 800 mg-160 mg tablet RxNorm: 572593 1 Tablet(s) PO BID 0 08/07/2017 08/13/2017 Inactive metronidazole 500 mg tablet RxNorm: 945485 1 Tablet(s) PO BID 08/0708/13/2017 Inactive diltiazem ER 360 mg capsule,24 hr,extended release RxNorm: 8 48254 1 Capsule(s) PO QHS replaces 300mg dose 08/04/2017 01/30/2018 Inactive fenofibrate micronized 134 mg capsule RxNorm: 044873 1 Capsule( s) PO QD 07/21/2017 01/30/2018 Inactive Zocor 40 mg tablet RxNorm: 695750 1 Tablet(s) PO QHS 07/21/201705/10 Inactive GB duloxetine 60 mg capsule,delayed release RxNorm: 469362 Capsule(s) TAKE ONE CAPSULE BY MOUTH ONCE DAILY 06/24/2017 09/24/2017 Inactive Cleocin HCl 300 mg capsule RxNorm: 726605 2 Capsule(s) PO BID 06/0206/08/2017 Inactive acyclovir 800 mg tablet RxNorm: 407015 1 Tablet(s) PO 5x day 201706/08/2017 Inactive diltiazem ER 300 mg capsule,24 hr,extended release RxNorm: 8 05540 1 Capsule(s) PO QHS replaces 240mg dose 05/05/2017 08/03/2017 Inactive ipratropium-albuterol 0.5 mg-3 mg(2.5 mg base)/3 mL ne bulization soln RxNorm: 3713714 1 Unit Dose INH Q4H as needed 05/05/2017 01/04/2019 Inactive metformin ER 1,000 mg tablet,extended release 24hr RxNorm: 1 701705 1 Tablet(s) PO BID 04/28/2017 11/17/2017 Inactive [SAVINGS FOR NON -COVERED DRUGS -- BIN:139820, PCN: ASPROD1, Group: XXXXX, ID# [id number], Questions: . THIS IS NOT INSURANCE.] diltiazem ER (XR/XT) 240 mg capsule,extended release 2 4 hr, controlled RxNorm: 628278 TAKE ONE CAPSULE BY MOUTH EVERY DAY 04/15/2017 05/04/2017 Inact avani prednisone 20 mg tablet RxNorm: 861455 1 Tablet(s) PO QD 04/10/2017 1 06/14/2016 Inactive Breo Ellipta 200 mcg-25 mcg/dose powder for inhalation RxNor m: 9803339 1 Puff(s) INH QD 04/10/2017 02/09/2018 Inactive Breo Ellipta 200 mcg-25 mcg/dose powder for inhalation RxNor m: 6170797 1 Puff(s) INH QD 04/10/2017 04/09/2017 Inactive Levaquin 500 mg tablet RxNorm: 688758 1 Tablet(s) PO QD 04/10/2017 Inactive metoprolol succinate ER 100 mg tablet,extended release 24 hr RxNorm: 216867 TAKE ONE TABLET BY MOUTH TWICE A DAY 03/24/2017 12/18/2017 Inactive fenofibrate micronized 134 mg capsule RxNorm: 259253 1 Capsule( s) PO QD 01/16/2017 07/21/2017 Inactive Benicar HCT 40 mg-25 mg tablet RxNorm: 225860 1 Tablet(s) PO QD 11/17/2017 Inactive [SAVINGS FOR NON-COVERED JESU GS -- BIN:990864, PCN: ASPROD1, Group: XXXXX, ID# [id number], Questions: . THIS IS NOT INSURANCE.] metoprolol succinate ER 100 mg tablet,extended release 24 hr RxNorm: 767496 1 Tablet(s) PO BID 10/16/2016 03/23/2017 Inactive diltiazem ER (XR/XT) 240 mg capsule,extended release 2 4 hr, controlled RxNorm: 990282 1 Capsule(s) PO QD 10/16/2016 04/13/2017 Inactive [SAVINGS FOR NON- COVERED DRUGS -- BIN:162468, PCN: ASPROD1, Group: XXXXX, ID# [id number], Questions: . THIS IS NOT INSURANCE.] metformin ER 1,000 mg tablet,extended release 24hr RxNorm: 8 70846 1 Tablet(s) PO BID 10/16/2016 04/28/2017 Inactive [SAVINGS FOR NON -COVERED DRUGS -- BIN:430007, PCN: ASPROD1, Group: XXXXX, ID# [id number], Questions: . THIS IS NOT INSURANCE.] Zocor 40 mg tablet RxNorm: 729549 1 Tablet(s) PO QHS 10/16/201607/21 Inactive GB Singulair 10 mg tablet RxNorm: 831934 Tablet(s) 1 TABLET(S) PO QHS 08/27/2016 09/02/2018 Inactive prednisone 20 mg tablet RxNorm: 261306 1 Tablet(s) PO QD 08/27/2016 0 08/31/2016 Inactive ipratropium-albuterol 0.5 mg-3 mg(2.5 mg base)/3 mL ne bulization soln RxNorm: 4019409 1 Unit Dose INH Q4H as needed 08/27/2016 05/04/2017 Inactive metoprolol succinate ER 100 mg tablet,extended release 24 hr RxNorm: 638055 TAKE ONE TABLET BY MOUTH TWICE A DAY 08/05/2016 10/16/2016 Inactive duloxetine 60 mg capsule,delayed release RxNorm: 916340 TAKE ONE CAPSULE BY MOUTH ONCE DAILY 08/05/2016 06/24/2017 Inactive prednisone 20 mg tablet RxNorm: 539018 1 Tablet(s) PO QD 06/14/2016 0 06/18/2016 Inactive ipratropium-albuterol 0.5 mg-3 mg(2.5 mg base)/3 mL ne bulization soln RxNorm: 6976642 1 Unit Dose INH Q4H as needed 06/13/2016 08/26/2016 Inactive Levaquin 500 mg tablet RxNorm: 073057 1 Tablet(s) PO QD 06/13/2016 Inactive metoprolol succinate ER 100 mg tablet,extended release 24 hr RxNorm: 600428 1 Tablet(s) PO BID replaces 50mg dose 05/14/2016 07/12/2016 Inactive metoprolol succinate ER 50 mg tablet,extended release 24 hr RxNorm: 639708 1 Tablet(s) PO BID 04/29/2016 05/13/2016 Inactive prednisone 20 mg tablet RxNorm: 367192 1 Tablet(s) PO BID 04/22/2016 04/21/2016 Inactive prednisone 20 mg tablet RxNorm: 950584 1 Tablet(s) PO BID 04/22/2016 04/28/2016 Inactive Singulair 10 mg tablet RxNorm: 097764 Tablet(s) 1 TABLET(S) PO QHS 04/01/2016 08/26/2016 Inactive metoprolol succinate ER 25 mg tablet,extended release 24 hr RxNorm: 031516 1 Tablet(s) PO QHS for blood pressure 04/01/2016 05/13/2016 Inactive fenofibrate micronized 134 mg capsule RxNorm: 153322 TA KE ONE CAPSULE BY MOUTH DAILY 01/25/2016 01/16/2017 Inactive duloxetine 60 mg capsule,delayed release RxNorm: 384830 TAKE ONE CAPSULE BY MOUTH ONCE DAILY 01/25/2016 08/04/2016 Inactive Zocor 40 mg tablet RxNorm: 915871 TAKE ONE TABLET BY MOUTH AT B EDTIME 11/13/2015 10/16/2016 Inactive GB metformin ER 1,000 mg tablet,extended release 24hr RxNorm: 8 17783 1 Tablet(s) PO BID 10/26/2015 10/16/2016 Inactive [SAVINGS FOR NON -COVERED DRUGS -- BIN:692654, PCN: ASPROD1, Group: XXXXX, ID# [id number], Questions: . THIS IS NOT INSURANCE.] Benicar HCT 40 mg-25 mg tablet RxNorm: 319941 1 Tablet(s) PO QD 06/201511/11/2016 Inactive [SAVINGS FOR NON-COVERED JESU GS -- BIN:627090, PCN: ASPROD1, Group: XXXXX, ID# [id number], Questions: . THIS IS NOT INSURANCE.] diltiazem ER (XR/XT) 240 mg capsule,extended release,control led RxNorm: 119050 1 Capsule(s) PO QD 10/26/2015 10/15/2016 Inactive [SAVINGS FOR NO N-COVERED DRUGS -- BIN:124507, PCN: ASPROD1, Group: XXXXX, ID# [id number], Questions: . THIS IS NOT INSURANCE.] Singulair 10 mg tablet RxNorm: 582851 1 TABLET(S) PO QHS 09/18/2015 1 05/31/2015 Inactive Viagra 100 mg tablet RxNorm: 061160 1 Tablet(s) PO as needed 201511/23/2018 Inactive Singulair 10 mg tablet RxNorm: 761614 1 Tablet(s) PO QHS 08/16/2015 0 08/15/2015 Inactive Singulair 10 mg tablet RxNorm: 423497 1 Tablet(s) PO QHS 08/16/2015 0 09/14/2015 Inactive duloxetine 60 mg capsule,delayed release RxNorm: 767391 1 Capsule(s) PO QD replaces fluoxetine 08/14/2015 01/24/2016 Inactive ipratropium-albuterol 0.5 mg-3 mg(2.5 mg base)/3 mL ne bulization soln RxNorm: 6862997 1 Unit Dose INH Q4H as needed 08/14/2015 06/12/2016 Inactive prednisone 20 mg tablet RxNorm: 118387 Take 3 tabs PO o nce daily x 3 days, then 2 tabs PO once daily x 3 days and then 1 tab PO once daily x 3 days 08/09/2015 08/13/2015 Inactive Symbicort 160 mcg-4.5 mcg/actuation HFA aerosol inhaler RxNo rm: 7761867 2 Puff(s) INH BID 08/09/2015 08/13/2015 Inactive Zocor 40 mg tablet RxNorm: 981468 1 Tablet(s) PO QHS 05/23/201511/11 Inactive [AttnRPh: Saving apply/adjudicate RxGRP: SG20 RxBIN:[id number] RxPCN:HT ID#:[id number]] Benicar HCT 40 mg-25 mg tablet RxNorm: 680786 1 Tablet(s) PO QD 10/26/2015 Inactive [SAVINGS FOR NON-COVERED JESU GS -- BIN:240708, PCN: ASPROD1, Group: XXXXX, ID# [id number], Questions: . THIS IS NOT INSURANCE.] diltiazem ER (XR/XT) 240 mg capsule,extended release,control led RxNorm: 986804 1 Capsule(s) PO QD 04/24/2015 10/20/2015 Inactive [SAVINGS FOR NO N-COVERED DRUGS -- BIN:452100, PCN: ASPROD1, Group: XXXXX, ID# XXXXXXX, Questions: . THIS IS NOT INSURANCE.] fluoxetine 40 mg capsule RxNorm: 327262 1 Capsule(s) PO QD 04/24/20 15 08/13/2015 Inactive [SAVINGS FOR NON-COVERED JESU GS -- BIN:190998, PCN: ASPROD1, Group: XXXXX, ID# [id number], Questions: . THIS IS NOT INSURANCE.] Zocor 40 mg tablet RxNorm: 017524 TABLET(S) 1 TABLET(S) PO QHS 01/2505/23/2015 Inactive [AttnRPh: Saving apply/adjud icate RxGRP:SG20 RxBIN:[id number] RxPCN: ID#:[id number]] metformin ER 1,000 mg tablet,extended release 24hr RxNorm: 8 34446 1 TABLET(S) PO BID 01/29/2015 10/26/2015 Inactive [SAVINGS FOR NON -COVERED DRUGS -- BIN:196456, PCN: ASPROD1, Group: XXXXX, ID# XXXXXXX, Questions: . THIS IS NOT INSURANCE.] fenofibrate micronized 134 mg capsule RxNorm: 233826 1 CAPSULE( S) PO QD 01/23/2015 01/17/2016 Inactive fenofibrate micronized 134 mg capsule RxNorm: 603904 1 Capsule( s) PO QD 11/07/2014 01/22/2015 Inactive diltiazem ER (XR/XT) 240 mg capsule,extended release,control led RxNorm: 041354 1 Capsule(s) PO QD 10/24/2014 04/24/2015 Inactive [SAVINGS FOR NO N-COVERED DRUGS -- BIN:865189, PCN: ASPROD1, Group: XXXXX, ID# XXXXXXX, Questions: . THIS IS NOT INSURANCE.] Benicar HCT 40 mg-25 mg tablet RxNorm: 585388 1 Tablet(s) PO QD 05/201404/24/2015 Inactive [SAVINGS FOR NON-COVERED JESU GS -- BIN:439914, PCN: ASPROD1, Group: XXXXX, ID# XXXXXXX, Questions: . THIS IS NOT INSURANCE.] fluoxetine 40 mg capsule RxNorm: 095849 1 Capsule(s) PO QD 10/25/19 15 04/24/2015 Inactive [SAVINGS FOR NON-COVERED JESU GS -- BIN:656542, PCN: ASPROD1, Group: XXXXX, ID# [id number], Questions: . THIS IS NOT INSURANCE.] azithromycin 500 mg tablet RxNorm: 861195 1 Tablet(s) PO QD 015 09/27/2014 Inactive [SAVINGS FOR NON-COVERED JESU GS -- BIN:440734, PCN: ASPROD1, Group: XXXXX, ID# XXXXXXX, Questions: . THIS IS NOT INSURANCE.] albuterol sulfate 2.5 mg/3 mL (0.083 %) solution for n ebulization RxNorm: 958710 3 Milliliter(s) INH ONE VIAL VIA NEBULIZER EVERY 4 HOURS 015 11/19/2014 Inactive [AttnRPh: Saving apply/adjudicate RxGRP: SG20 RxBIN:[id number] RxPCN: ID#:[id number]] Zocor 40 mg tablet RxNorm: 603775 TABLET(S) 1 TABLET(S ) PO QHS 1 TABLET(S) PO QHS 09/04/2014 02/21/2015 Inactive [AttnRPh: Saving apply/adjudicate RxGRP:SG20 RxBIN:[id number] RxPCN:HT ID#:[id number]] metformin ER 1,000 mg tablet,extended release 24hr RxNorm: 8 88706 1 Tablet(s) PO BID 08/04/2014 01/28/2015 Inactive [SAVINGS FOR NON -COVERED DRUGS -- BIN:304541, PCN: ASPROD1, Group: XXXXX, ID# XXXXXXX, Questions: . THIS IS NOT INSURANCE.] Bromfed DM 2 mg-30 mg-10 mg/5 mL syrup RxNorm: 4956875 1 -2 Teaspoon(s) PO Q4H as needed for cough 06/10/2014 06/19/2014 Inactive [SAVINGS FOR UN INSURED PATIENTS -- BIN:649168, PCN: ASPROD1, Group: AME08, ID# [id number], Process claim through [employer], for questions: . THIS IS NOT INSURANCE.] Augmentin 875 mg-125 mg tablet RxNorm: 258197 1 Tablet(s) PO Q12H 0 06/10/2014 06/19/2014 Inactive [AttnRPh: Saving apply/adjud icate RxGRP:SG20 RxBIN:[id number] RxPCN: ID#:[id number]] Zocor 40 mg tablet RxNorm: 031290 Tablet(s) 1 TABLET(S ) PO QHS 1 TABLET(S) PO QHS 05/25/2014 08/22/2014 Inactive [AttnRPh: Saving apply/adjudicate RxGRP:SG20 RxBIN:[id number] RxPCN:HT ID#:[id number]] fluoxetine 40 mg capsule RxNorm: 085040 1 Capsule(s) PO QD 04/29/20 14 10/24/2014 Inactive [AttnRPh: Saving apply/adjud icate RxGRP:SG20 RxBIN:[id number] RxPCN:HT ID#:[id number]] diltiazem ER (XR/XT) 240 mg capsule,extended release,control led RxNorm: 112734 1 Capsule(s) PO QD 04/29/2014 10/24/2014 Inactive [AttnRPh: Leonelin g apply/adjudicate RxGRP:SG20 RxBIN:[id number] RxPCN:HT ID#:[id number]] Benicar HCT 40 mg-25 mg tablet RxNorm: 366060 1 Tablet(s) PO QD 09/201310/24/2014 Inactive [AttnRPh: Saving apply/adjud icate RxGRP:SG20 RxBIN:[id number] RxPCN:HT ID#:[id number]] Zocor 40 mg tablet RxNorm: 684875 1 TABLET(S) PO QHS 1 TABLET(S ) PO QHS 03/07/2014 05/25/2014 Inactive [AttnRPh: Saving chelsie ly/adjudicate RxGRP:SG20 RxBIN:[id number] RxPCN:HT ID#:[id number]] Zocor 40 mg tablet RxNorm: 784949 1 Tablet(s) PO QHS 1 TABLET(S ) PO QHS 12/06/2013 03/05/2014 Inactive [AttnRPh: Saving chelsie ly/adjudicate RxGRP:SG20 RxBIN:[id number] RxPCN:HT ID#:[id number]] diltiazem ER (XR/XT) 240 mg capsule,extended release,control led RxNorm: 515329 1 Capsule(s) PO QD 10/25/2013 04/22/2014 Inactive [AttnRPh: Savin g apply/adjudicate RxGRP:SG20 RxBIN:[id number] RxPCN:HT ID#:[id number]] fluoxetine 40 mg capsule RxNorm: 221012 1 Capsule(s) PO QD 10/26/19 14 04/22/2014 Inactive [AttnRPh: Saving apply/adjud icate RxGRP:SG20 RxBIN:[id number] RxPCN:HT ID#:[id number]] Zocor 40 mg tablet RxNorm: 550885 1 Tablet(s) PO QHS 1 TABLET(S ) PO QHS 09/13/2013 12/06/2013 Inactive metformin ER 1,000 mg tablet,extended release 24hr RxNorm: 8 22055 Tablet(s) PO TAKE 1 TABLET BY MOUTH TWICE DAILY (REPLACES 500MG DOSE) 07/26/201303/2015 Inactive diltiazem ER (XR/XT) 240 mg capsule,extended release,control led RxNorm: 679904 1 Capsule(s) PO QD 05/03/2013 10/25/2013 Inactive fluoxetine 40 mg capsule RxNorm: 645224 1 Capsule(s) PO QD 05/03/20 13 10/25/2013 Inactive Benicar HCT 40 mg-25 mg tablet RxNorm: 172060 1 Tablet(s) PO QD 01/201304/29/2014 Inactive Zocor 40 mg tablet RxNorm: 420607 1 Tablet(s) PO QHS 12/10/201209/13 Inactive fluoxetine 40 mg capsule RxNorm: 065677 1 Capsule(s) PO QD 11/10/19 13 05/03/2013 Inactive diltiazem ER (XR/XT) 240 mg capsule,extended release,control led RxNorm: 034045 1 Capsule(s) PO QD 11/09/2012 05/03/2013 Inactive Benicar HCT 40 mg-25 mg tablet RxNorm: 621085 1 Tablet(s) PO QD 05/03/2013 Inactive metformin ER 1,000 mg tablet,extended release 24hr RxNorm: 8 90467 Tablet(s) PO TAKE 1 TABLET BY MOUTH TWICE DAILY (REPLACES 500MG DOSE) 08/05/201206/2013 Inactive Zocor 40 mg tablet RxNorm: 435206 1 Tablet(s) PO QHS 06/15/201212/09 Inactive fluoxetine 40 mg capsule RxNorm: 593885 1 Capsule(s) PO QD 05/15/20 12 11/08/2012 Inactive Neurontin 600 mg Tab RxNorm: 846139 1 Tablet(s) PO QHS 12/03/2011 Inactive metformin ER 1,000 mg tablet,extended release 24hr RxNorm: 8 00711 1 Tablet(s) PO BID replaces 500mg dose 12/03/2011 07/26/2013 Inactive Zocor 40 mg tablet RxNorm: 342244 1 Tablet(s) PO QHS 12/03/201106/15 Inactive fluoxetine 20 mg capsule RxNorm: 330177 1 Capsule(s) PO QD 12/03/19 12 05/24/2012 Inactive diltiazem ER (XR/XT) 240 mg capsule,extended release,control led RxNorm: 838985 1 Capsule(s) PO QD 11/15/2011 11/09/2012 Inactive Benicar HCT 40 mg-25 mg tablet RxNorm: 876144 1 Tablet(s) PO QD 02/16/2012 Inactive metformin ER 500 mg 24 hr Tab RxNorm: 242578 1 Tablet(s) PO BID 12/02/2011 Inactive Zocor 40 mg Tab RxNorm: 639732 1 Tablet(s) PO QHS 05/30/2011 11/25/19 12 Inactive fluoxetine 20 mg Cap RxNorm: 506180 1 Capsule(s) PO QD 05/28/2011 Inactive Neurontin 600 mg Tab RxNorm: 174583 1 Tablet(s) PO QHS 05/28/2011 Inactive Neurontin 600 mg Tab RxNorm: 675547 1 Tablet(s) PO QHS 02/22/201106/2011 Inactive Neurontin 600 mg Tab RxNorm: 854166 1 Tablet(s) PO QHS 01/14/2011 Inactive Neurontin 300 mg Cap RxNorm: 720398 1 Capsule(s) PO QHS 01/14/2011 Inactive Neurontin 600 mg Tab RxNorm: 583016 1 Tablet(s) PO QHS 01/14/2011 Inactive Medrol (Vipul) 4 mg Tabs in a Dose Pack RxNorm: 987762 Tablet(s) PO 0 01/02/2011 08/28/2011 Inactive as directed fluoxetine 20 mg Cap RxNorm: 852734 1 Capsule(s) PO QD 12/10/201006/2011 Inactive Zocor 40 mg Tab RxNorm: 264466 1 Tablet(s) PO QHS 12/03/2010 05/29/19 12 Inactive Neurontin 300 mg Cap RxNorm: 639003 1 Capsule(s) PO QHS 12/03/2010 Inactive Septra DS 800 mg-160 mg Tab RxNorm: 824202 1 Tablet(s) PO BID 11/2912/08/2010 Inactive diltiazem ER (XR/XT) 240 mg Continuous Release Cap RxNorm: 8 40163 1 Capsule(s) PO QD 11/20/2010 11/15/2011 Inactive Neurontin 300 mg Cap RxNorm: 403293 1 Capsule(s) PO QHS 11/06/2010 Inactive Neurontin 300 mg Cap RxNorm: 889915 1 Capsule(s) PO QHS 11/06/2010 Inactive Celebrex 200 mg Cap RxNorm: 331195 1 Capsule(s) PO BID 10/24/2010 Inactive fluoxetine 20 mg Cap RxNorm: 110688 1 Capsule(s) PO QD 06/07/201003/2011 Inactive Zocor 40 mg Tab RxNorm: 188220 1 Tablet(s) PO QHS 06/05/2010 12/02/19 11 Inactive Benicar HCT 40 mg-25 mg Tab RxNorm: 913198 1 Tablet(s) PO QD 200908/21/2011 Inactive Diltiazem 240 mg Continuous Release Cap RxNorm: 967674 1 Capsul e(s) PO QD 11/09/2009 09/02/2018 Inactive Avelox 400 mg Tab RxNorm: 981567 1 Tablet(s) PO QD 08/22/2009 010 Inactive ProAir HFA 90 mcg/actuation aerosol inhaler RxNorm: 740013 2 Puff(s) INH Q4H as needed No Start Date Active tramadol 50 mg tablet RxNorm: 265615 1-2 Tablet(s) PO TID as ne eded for pain No Start Date Active Tylenol Arthritis 650 mg Tab RxNorm: 7366634 2 Tablet(s) PO QD No Sta rt Date Active Celebrex 200 mg Cap RxNorm: 350014 1 Capsule(s) PO BID No Start Date 08/08/2015 Inactive Medrol (Vipul) 4 mg Tabs in a Dose Pack RxNorm: 520079 Tablet(s) PO N o Start Date 01/01/2011 Inactive as directed Promethazine-DM 6.25 mg-15 mg/5 mL Syrup RxNorm: 519543 1-2 Teaspoon(s) PO Q4H prn cough No Start Date 08/28/2011 Inactive Claritin 10 mg tablet RxNorm: 940269 1 Tablet(s) PO QD No Start Date 08/08/2015 Inactive Cddeapcpdy-Hxvgn-JHC-James-115HC Oral RxNorm: Oral No Start Da te 03/28/2019 Inactive Breo Ellipta 200 mcg-25 mcg/dose powder for inhalation RxNor m: 6566535 1 Puff(s) INH QD No Start Date 04/09/2017 Inactive metformin 500 mg Tab RxNorm: 424221 1 Tablet(s) PO QD No Start Date 0 08/17/2011 Inactive Diltiazem 240 mg Continuous Release Cap RxNorm: 661435 1 Capsul e(s) PO BID No Start Date 11/08/2009 Inactive fluoxetine 20 mg Cap RxNorm: 103922 1 Capsule(s) PO QD No Start Date 06/07/2010 Inactive Multivitamin & Mineral Formula Oral RxNorm: Oral No Start Da te 03/28/2019 Inactive Medrol (Vipul) 4 mg tablets in a dose pack RxNorm: 597361 Tablet(s) PO as directed No Start Date 05/28/2012 Inactive Fish Oil 1,000 mg Cap RxNorm: 1 Capsule(s) PO QD No Start Date 07/2018 Inactive Nexium 40 mg Cap RxNorm: 855390 1 Capsule(s) PO QD No Start Date 07/24 Inactive fluticasone 50 mcg/actuation nasal spray,suspension RxNorm: 6607061 2 [place] NASAL QD to each nostril No Start Date 08/03/2017 Inactive Viagra 100 mg tablet RxNorm: 380667 1 Tablet(s) PO as needed No Sta rt Date 09/17/2015 Inactive prednisone 20 mg tablet RxNorm: 084492 1 Tablet(s) PO B ID for 4 days then 1 po daily for 4 days No Start Date 11/23/2018 Inactive Benicar HCT 40 mg-25 mg Tab RxNorm: 443208 1 Tablet(s) PO QD No Sta rt [...] Date S ervice Location MICROALBUMIN URINE RANDOM 23592 MICRL MG/L 5.8 MG/L 03/2011 Unknown MICROALBUMIN URINE RANDOM 21898 XM.ALB/CRE 5.2 MG/GCR Unknown MICROALBUMIN URINE RANDOM 46276 CREAT MG/D 111 MG/DL 03/2011 Unknown MICROALBUMIN URINE RANDOM 69534 CRE/100 1.11 G/L 12/24 Unknown Procedures Procedure Codes Date FLU VACC PRSV FREE INC ANTIG 65 AND OLDER CPT-4: 14305 03/04/2019 ADMIN PNEUMOCOCCAL VACCINE CPT-4: G0009 03/04/2019 ADMIN INFLUENZA VIRUS VAC CPT-4: G0008 03/04/2019 FLU VACC PRSV FREE INC ANTIG 65 AND OLDER CPT-4: 03414 03/04/2019 PNEUMOCOCCAL VACC 23 [facility] IM CPT-4: 34099 03/04/2019 THER/PROPH/DIAG INJ SC/IM CPT-4: 37184 08/11/2018 TRIAMCINOLONE ACET INJ NOS CPT-4: J3301 08/11/2018 DEXAMETHASONE SODIUM PHOS CPT-4: J1100 08/11/2018 THER/PROPH/DIAG INJ SC/IM CPT-4: 05620 07/16/2018 METHYLPREDNISOLONE INJECTION CPT-4: J2930 07/16/2018 INFLUENZA ASSAY W/OPTIC CPT-4: 92498 07/16/2018 THER/PROPH/DIAG INJ SC/IM CPT-4: 43165 07/13/2018 TRIAMCINOLONE ACET INJ NOS CPT-4: J3301 07/13/2018 THER/PROPH/DIAG INJ SC/IM CPT-4: 84468 05/04/2018 METHYLPREDNISOLONE INJECTION CPT-4: J2930 05/04/2018 FLU VACC PRSV FREE INC ANTIG 65 AND OLDER CPT-4: 33594 02/10/2018 PNEUMOCOCCAL VACC 13 [facility] IM CPT-4: 57153 02/10/2018 ADMIN INFLUENZA VIRUS VAC CPT-4: G0008 02/10/2018 ADMIN PNEUMOCOCCAL VACCINE CPT-4: G0009 02/10/2018 THER/PROPH/DIAG INJ SC/IM CPT-4: 31077 09/09/2017 TRIAMCINOLONE ACET INJ NOS CPT-4: J3301 09/09/2017 ALBUTEROL NON-COMP UNIT CPT-4: J7613 04/10/2017 AIRWAY INHALATION TREATMENT CPT-4: 97421 04/10/2017 PRESCRIP TRANSMIT VIA ERX SY CPT-4: G8553 04/10/2017 FLU VACC PRSV FREE INC ANTIG 65 AND OLDER CPT-4: 28762 03/28/2017 ADMIN INFLUENZA VIRUS VAC CPT-4: G0008 03/28/2017 PRESCRIP TRANSMIT VIA ERX SY CPT-4: G8553 08/27/2016 PRESCRIP TRANSMIT VIA ERX SY CPT-4: G8553 06/14/2016 ALBUTEROL NON-COMP UNIT CPT-4: J7613 06/13/2016 AIRWAY INHALATION TREATMENT CPT-4: 40573 06/13/2016 PRESCRIP TRANSMIT VIA ERX SY CPT-4: [...] CPT-4: G8553 11/07/2014 THER/PROPH/DIAG INJ SC/IM CPT-4: 88585 09/21/2014 METHYLPREDNISOLONE INJECTION CPT-4: J2930 09/21/2014 PRESCRIP TRANSMIT VIA ERX SY CPT-4: G8553 09/21/2014 PRESCRIP TRANSMIT VIA ERX SY CPT-4: G8553 06/10/2014 URINALYSIS NONAUTO W/O SCOPE CPT-4: 11486 06/01/2012 PRESCRIP TRANSMIT VIA ERX SY CPT-4: G8553 05/25/2012 PRESCRIP TRANSMIT VIA ERX SY CPT-4: G8553 12/03/2011 CUR TOBACCO NON-USER CPT-4: G8457 05/30/2011 PRESCRIP TRANSMIT VIA ERX SY CPT-4: G8553 05/30/2011 URINALYSIS NONAUTO W/O SCOPE CPT-4: 42306 01/01/2011 URINE CULTURE/ COLONY COUNT CPT-4: 13755 01/01/2011 CUR TOBACCO NON-USER CPT-4: G8457 01/01/2011 [...] 1: 114/68 Code: 8480-6 BMI: 43.5 Code: 01143-0 Heart Rate 1: 52 bpm Height: 6'1" [...] 1: 136/72 Code: 8480-6 BMI: 42.7 Code: 48572-9 Heart Rate 1: 60 bpm Height: 6'1" Respiratory Rate: 22 bpm SpO2: 95% Tempera ture: 37.1 (C) / 98.7 (F) Weight: 324 lbs 02/10/2018 Blood Pressure 1: 146/78 Code: 8480-6 BMI: 42.4 Code: 54574-9 Heart Rate 1: 64 bpm Height: 6'1" Respiratory Rate: 22 bpm SpO2: 95% Tempera ture: 36.5 (C) / 97.7 (F) Weight: 321 lbs 11/05/2017 Blood Pressure 1: 128/84 Code: 8480-6 BMI: 42.9 Code: 45564-0 Heart Rate 1: 52 bpm Height: 6'1" Respiratory Rate: 22 bpm SpO2: 95% Tempera ture: 36.3 (C) / 97.3 (F) Weight: 325 lbs 09/09/2017 Blood Pressure 1: 162/90 Code: 8480-6 BMI: 42.5 Code: 39732-6 Heart Rate 1: 60 bpm Height: 6'1" Respiratory Rate: 24 bpm SpO2: 95% Tempera ture: 36.4 (C) / 97.6 (F) Weight: 322 lbs 08/07/2017 Blood Pressure 1: 152/90 Code: 8480-6 BMI: 42.2 Code: 31507-9 Heart Rate 1: 60 bpm Height: 6'1" Respiratory Rate: 26 bpm SpO2: 94% Tempera ture: 36.6 (C) / 97.8 (F) Weight: 320 lbs 08/04/2017 Blood Pressure 1: 150/86 Code: 8480-6 BMI: 42.7 Code: 40494-2 Heart Rate 1: 64 bpm Height: 6'1" Respiratory Rate: 20 bpm SpO2: 94% Tempera ture: 36.3 (C) / 97.3 (F) Weight: 324 lbs 06/04/2017 Blood Pressure 1: 164/90 Code: 8480-6 Heart Rate 1: 60 bpm Respiratory Rate: 24 bpm SpO2: 94% Temperature: 36.8 (C) / 98.3 (F) 06/02/2017 Blood Pressure 1: 162/80 Code: 8480-6 BMI: 42.9 Code: 52061-4 Heart Rate 1: 66 bpm Height: 6'1" Respiratory Rate: 22 bpm SpO2: 98% Tempera ture: 36.6 (C) / 97.8 (F) Weight: 325 lbs 05/05/2017 Blood Pressure 1: 164/94 Code: 8480-6 BMI: 41.4 Code: 58115-4 Heart Rate 1: 64 bpm Height: 6'1" Respiratory Rate: 22 bpm SpO2: 95% Tempera ture: 36.4 (C) / 97.5 (F) Weight: 314 lbs 04/10/2017 Blood Pressure 1: 136/78 Code: 8480-6 BMI: 42.0 Code: 49362-3 Heart Rate 1: 76 bpm Height: 6'1" Respiratory Rate: 24 bpm SpO2: 92% Tempera ture: 35.9 (C) / 96.7 (F) Weight: 318 lbs 02/03/2017 Blood Pressure 1: 134/82 Code: 8480-6 BMI: 41.7 Code: 19835-6 Heart Rate 1: 72 bpm Height: 6'1" Respiratory Rate: 24 bpm SpO2: 95% Tempera ture: 36.1 (C) / 97.0 (F) Weight: 316 lbs 10/30/2016 Blood Pressure 1: 126/74 Code: 8480-6 BMI: 41.3 Code: 29588-9 Heart Rate 1: 68 bpm Height: 6'1" Respiratory Rate: 20 bpm Temperature: 37 .1 (C) / 98.8 (F) Weight: 313 lbs 08/30/2016 Blood Pressure 1: 146/80 Code: 8480-6 BMI: 41.7 Code: 27272-2 Heart Rate 1: 64 bpm Height: 6'1" Respiratory Rate: 24 bpm SpO2: 94% Tempera ture: 36.6 (C) / 97.8 (F) Weight: 316 lbs 08/27/2016 Blood Pressure 1: 124/78 Code: 8480-6 Heart Rate 1: 66 bpm Height: 6'2" Respiratory Rate: 18 bpm SpO2: 94% Temperature: 36.6 (C) / 97.8 (F) Weight: 07/02/2016 Blood Pressure 1: 126/78 Code: 8480-6 BMI: 41.4 Code: 63963-2 Heart Rate 1: 68 bpm Height: 6'1" Respiratory Rate: 24 bpm SpO2: 94% Tempera ture: 36.6 (C) / 97.8 (F) Weight: 314 lbs 06/14/2016 Blood Pressure 1: 146/82 Code: 8480-6 Heart Rate 1: 80 bpm Respiratory Rate: 20 bpm SpO2: 95% Temperature: 37.3 (C) / 99.2 (F) 06/13/2016 Blood Pressure 1: 146/84 Code: 8480-6 BMI: 40.5 Code: 22897-6 Heart Rate 1: 66 bpm Height: 6'1" Respiratory Rate: 28 bpm SpO2: 93% Tempera ture: 35.8 (C) / 96.4 (F) Weight: 307 lbs 05/14/2016 Blood Pressure 1: 146/90 Code: 8480-6 BMI: 41.2 Code: 82175-8 Heart Rate 1: 68 bpm Height: 6'1" Respiratory Rate: 26 bpm Temperature: 36 .8 (C) / 98.2 (F) Weight: 312 lbs 04/29/2016 Blood Pressure 1: 152/90 Code: 8480-6 BMI: 41.0 Code: 15425-3 Heart Rate 1: 68 bpm Height: 6'1" Respiratory Rate: 26 bpm SpO2: 94% Tempera ture: 36.1 (C) / 96.9 (F) Weight: 311 lbs 04/22/2016 Blood Pressure 1: 152/94 Code: 8480-6 BMI: 40.9 Code: 55390-0 Heart Rate 1: 68 bpm Height: 6'1" Respiratory Rate: 24 bpm SpO2: 94% Tempera ture: 36.2 (C) / 97.2 (F) Weight: 310 lbs 04/01/2016 Blood Pressure 1: 156/78 Code: 8480-6 BMI: 40.6 Code: 69956-9 Heart Rate 1: 84 bpm Height: 6'1" Respiratory Rate: 22 bpm SpO2: 95% Tempera ture: 37.1 (C) / 98.7 (F) Weight: 308 lbs 11/30/2015 Blood Pressure 1: 142/80 Code: 8480-6 BMI: 40.5 Code: 31637-7 Heart Rate 1: 88 bpm Height: 6'1" Respiratory Rate: 22 bpm Temperature: 36 .2 (C) / 97.2 (F) Weight: 307 lbs 08/29/2015 Blood Pressure 1: 132/70 Code: 8480-6 BMI: 40.0 Code: 96917-9 Heart Rate 1: 76 bpm Height: 6'1" Respiratory Rate: 24 bpm SpO2: 96% Tempera ture: 36.7 (C) / 98.0 (F) Weight: 303 lbs 08/14/2015 Blood Pressure 1: 126/80 Code: 8480-6 BMI: 39.4 Code: 76301-5 Heart Rate 1: 92 bpm Height: 6'1" Respiratory Rate: 24 bpm SpO2: 94% Tempera ture: 37.8 (C) / 100.0 (F) Weight: 299 lbs 08/09/2015 Blood Pressure 1: 146/82 Code: 8480-6 Heart Rate 1: 82 bpm Respiratory Rate: 22 bpm SpO2: 93% Temperature: 35.9 (C) / 96.6 (F) We ight: 310 lbs 05/22/2015 Blood Pressure 1: 156/76 Code: 8480-6 BMI: 41.0 Code: 41360-1 Heart Rate 1: 100 bpm Height: 6'1" Respiratory Rate: 22 bpm Temperature: 37 .2 (C) / 98.9 (F) Weight: 311 lbs 02/13/2015 Blood Pressure 1: 166/90 Code: 8480-6 BMI: 41.2 Code: 90482-4 Heart Rate 1: 72 bpm Height: 6'1" Respiratory Rate: 24 bpm SpO2: 93% Tempera ture: 36.9 (C) / 98.5 (F) Weight: 312 lbs 11/07/2014 Blood Pressure 1: 134/70 Code: 8480-6 BMI: 40.5 Code: 42522-4 Heart Rate 1: 76 bpm Height: 6'1" Respiratory Rate: 24 bpm Temperature: 36 .9 (C) / 98.4 (F) Weight: 307 lbs 10/04/2014 Blood Pressure 1: 144/86 Code: 8480-6 BMI: 40.1 Code: 91239-8 Heart Rate 1: 76 bpm Height: 6'1" Respiratory Rate: 28 bpm Temperature: 36 .6 (C) / 97.9 (F) Weight: 304 lbs 09/22/2014 Blood Pressure 1: 142/80 Code: 8480-6 BMI: 40.0 Code: 57066-3 Heart Rate 1: 80 bpm Height: 6'1" Respiratory Rate: 22 bpm SpO2: 96% Tempera ture: 36.6 (C) / 97.8 (F) Weight: 303 lbs 09/21/2014 Blood Pressure 1: 160/66 Code: 8480-6 BMI: 40.0 Code: 36063-5 Heart Rate 1: 90 bpm Height: 6'1" Respiratory Rate: 26 bpm SpO2: 94% Tempera ture: 35.7 (C) / 96.2 (F) Weight: 303 lbs 06/28/2014 Blood Pressure 1: 132/80 Code: 8480-6 BMI: 41.0 Code: 59188-0 Heart Rate 1: 64 bpm Height: 6' Respiratory Rate: 20 bpm Temperature: 36 .7 (C) / 98.0 (F) Weight: 302 lbs 06/10/2014 Blood Pressure 1: 152/70 Code: 8480-6 BMI: 41.1 Code: 82197-8 Heart Rate 1: 76 bpm Height: 6' Respiratory Rate: 20 bpm Temperature: 36 .6 (C) / 97.8 (F) Weight: 303 lbs 03/29/2014 Blood Pressure 1: 132/78 Code: 8480-6 BMI: 40.6 Code: 25579-6 Heart Rate 1: 84 bpm Height: 6' Respiratory Rate: 22 bpm Temperature: 37 .1 (C) / 98.8 (F) Weight: 299 lbs 11/30/2013 Blood Pressure 1: 136/84 Code: 8480-6 BMI: 39.2 Code: 42913-5 Heart Rate 1: 76 bpm Height: 6' Respiratory Rate: 20 bpm Temperature: 36 .8 (C) / 98.2 (F) Weight: 289 lbs 08/03/2013 Blood Pressure 1: 144/80 Code: 8480-6 Heart Rate 1: 86 bpm Respiratory Rate: 20 bpm Temperature: 36.6 (C) / 97.8 (F) Weight: 296 lbs 04/06/2013 Blood Pressure 1: 142/90 Code: 8480-6 BMI: 40.3 Code: 08751-5 Heart Rate 1: 88 bpm Height: 6' Respiratory Rate: 20 bpm Temperature: 36 .6 (C) / 97.8 (F) Weight: 297 lbs 12/01/2012 Blood Pressure 1: 124/78 Code: 8480-6 BMI: 38.7 Code: 75974-5 Heart Rate 1: 76 bpm Height: 6' Respiratory Rate: 20 bpm Temperature: 37 .2 (C) / 98.9 (F) Weight: 285 lbs 08/04/2012 Blood Pressure 1: 128/80 Code: 8480-6 BMI: 38.2 Code: 60640-7 Heart Rate 1: 76 bpm Height: 6' Respiratory Rate: 20 bpm Temperature: 37 .0 (C) / 98.6 (F) Weight: 282 lbs 05/29/2012 Blood Pressure 1: 138/78 Code: 8480-6 BMI: 36.6 Code: 46731-8 Heart Rate 1: 66 bpm Height: 6' Temperature: 36.7 (C) / 98.1 (F) Weight: 270 lbs 05/25/2012 Blood Pressure 1: 128/72 Code: 8480-6 BMI: 39.9 Code: 69952-2 Heart Rate 1: 74 bpm Height: 6' Temperature: 36.1 (C) / 97.0 (F) Weight: 294 lbs 04/07/2012 Blood Pressure 1: 124/76 Code: 8480-6 BMI: 39.9 Code: 05515-9 Heart Rate 1: 72 bpm Height: 6' Respiratory Rate: 20 bpm Temperature: 36 .9 (C) / 98.5 (F) Weight: 294 lbs 12/16/2011 Blood Pressure 1: 128/80 Code: 8480-6 BMI: 40.8 Code: 14550-6 Heart Rate 1: 74 bpm Height: 6' Temperature: 36.6 (C) / 97.8 (F) Weight: 301 lbs 12/03/2011 Blood Pressure 1: 132/76 Code: 8480-6 BMI: 40.8 Code: 88623-2 Heart Rate 1: 68 bpm Height: 6' Respiratory Rate: 20 bpm Temperature: 36 .8 (C) / 98.2 (F) Weight: 301 lbs 08/29/2011 Blood Pressure 1: 140/68 Code: 8480-6 BMI: 40.8 Code: 42013-2 Heart Rate 1: 80 bpm Height: 6' Respiratory Rate: 20 bpm Temperature: 36 .4 (C) / 97.6 (F) Weight: 301 lbs 05/30/2011 Blood Pressure 1: 134/82 Code: 8480-6 BMI: 41.5 Code: 00756-1 Heart Rate 1: 76 bpm Height: 6' [...] 1: 126/72 Code: 8480-6 BMI: 41.2 Code: 05694-8 Heart Rate 1: 76 bpm Height: 6' [...] 1: 152/90 Code: 8480-6 BMI: 37.7 Code: 34791-0 Heart Rate 1: 92 bpm Height: 6'1" [...] with diabetic neuropathy, unspecified[ICD10: E11.40] Neela MURILLO [employer] CPT-4: 95338 12/01/2019 ([id number]) OFFICE/OUTPATIENT VISIT EST Diagnosis: Chronic obstructive pulmonary disease, unspecified[ICD10: J44.9] Diagnosis: Essential (primary) hypertension[ICD10: I10] Diagnosis: Mixed hyperlipidemia[ICD10: E78.2] Diagnosis: Type 2 diabetes mellitus with hyperglycemia[ICD10: E11.65] Neela MURILLO [employer] CPT-4: 07681 08/30/2019 ([id number]) OFFICE/OUTPATIENT VISIT EST Diagnosis: Chronic obstructive pulmonary disease with (acute) exacerbation[ICD10: J44.1] Neela HYMAN DO [facility] CPT- 4: 53706 08/10/2019 ([id number]) OFFICE/OUTPATIENT VISIT EST Diagnosis: Sore on toe[ICD10: L98.9] Neela VASQUEZ [facility] CPT-4: 48691 07/06/2019 ([id number]) OFFICE/OUTPATIENT VISIT EST Diagnosis: Advanced chronic obstructive pulmonary disease[ICD10: J44.9] 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] Neela HYMAN DO [facility] CPT-4: 27983 05/10/2019 ([id number]) OFFICE/OUTPATIENT VISIT EST Diagnosis: Chronic obstructive pulmonary disease with (acute) exacerbation[ICD10: J44.1] Diagnosis: Hypokalemia[ICD10: E87.6] 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] Neela HYMAN [facility] CPT-4: 48800 03/29/2019 ([id number]) NURSE/OUTPATIENT VISIT EST Diagnosis: PNEUMOCOCCAL VACCINE[ICD10: Z23] Neela HYMAN [facility] CPT-4: 46416 03/04/2019 ([id number]) OFFICE/OUTPATIENT VISIT EST Diagnosis: Chronic obstructive pulmonary disease with (acute) exacerbation[ICD10: J44.1] Diagnosis: Other nonspecific abnormal finding of lung field[ICD10: R91.8] Neela HYMAN DO [facility] CPT-4: 17261 01/05/2019 ([id number]) OFFICE/OUTPATIENT VISIT EST Diagnosis: Solitary pulmonary nodule[ICD10: R91.1] 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] Diagnosis: Tinea corporis[ICD10: B35.4] Neela HYMAN DO [facility] CPT-4: 95965 12/09/2018 ([id number]) OFFICE/OUTPATIENT VISIT EST Diagnosis: COUGH[ICD10: R05] Diagnosis: Chronic obstructive pulmonary disease, unspecified[ICD10: J44.9] Diagnosis: Other disorders of lung[ICD10: J98.4] Diagnosis: Other nonspecific abnormal finding of lung field[ICD10: R91.8] Neela HYMAN [employer] [facility] CPT-4: 78218 11/24/2018 ([id number]) OFFICE/OUTPATIENT VISIT EST Diagnosis: Pneumonia, unspecified organism[ICD10: J18.9] Amita HYMAN [employer] [facility] CPT-4: 16291 09/16/2018 ([id number]) OFFICE/OUTPATIENT VISIT EST Diagnosis: Pneumonia, unspecified organism[ICD10: J18.9] Neela HYMAN [employer] [facility] CPT-4: 82638 09/03/2018 ([id number]) OFFICE/OUTPATIENT VISIT EST Diagnosis: Personal history of pneumonia (recurrent)[ICD10: Z87.01] Diagnosis: Cough[ICD10: R05] Diagnosis: Essential (primary) hypertension[ICD10: I10] Diagnosis: Type 2 diabetes mellitus with hyperglycemia[ICD10: E11.65] Amita HYMAN [employer] [facility] CPT-4: 50655 08/27/2018 OFFICE/OUTPATIENT VISIT EST Diagnosis: Pneumonia, unspecified organism[ICD10: J18.9] Diagnosis: Chronic obstructive pulmonary disease with (acute) exacerbation[ICD10: J44.1] Diagnosis: Other specified symptoms and signs involving the circulatory and respiratory systems[ICD10: R09.89] Diagnosis: Essential (primary) hypertension[ICD10: I10] Amita HYMAN [employer] [facility] CPT-4: 77489 08/13/2018 OFFICE/OUTPATIENT VISIT EST Diagnosis: Pneumonia, unspecified organism[ICD10: J18.9] Diagnosis: Other specified symptoms and signs involving the circulatory and respiratory systems[ICD10: R09.89] Amita HYMAN [employer] [facility] CPT-4: 90334 08/11/2018 ([id number]) OFFICE/OUTPATIENT VISIT EST Diagnosis: Dyspnea, unspecified[ICD10: R06.00] Diagnosis: Chronic obstructive pulmonary disease with (acute) exacerbation[ICD10: J44.1] Diagnosis: Pneumonia, unspecified organism[ICD10: J18.9] Amita HYMAN DO [facility] CPT-4: 60128 07/16/2018 ([id number]) OFFICE/OUTPATIENT VISIT EST Diagnosis: Acute bronchitis due to other specified organisms[ICD10: J20.8] Diagnosis: Cough[ICD10: R05] Amita HYMAN DO [facility] T-4: 51919 07/13/2018 ([id number]) OFFICE/OUTPATIENT VISIT EST Diagnosis: Essential (primary) hypertension[ICD10: I10] Diagnosis: Chronic obstructive pulmonary disease, unspecified[ICD10: J44.9] Diagnosis: Type 2 diabetes mellitus with hyperglycemia[ICD10: E11.65] Diagnosis: Mixed hyperlipidemia[ICD10: E78.2] Neela STERLING Octavio HYMAN [employer] [facility] CPT-4: 63250 06/03/2018 ([id number]) OFFICE/OUTPATIENT VISIT EST Diagnosis: Chronic obstructive pulmonary disease, unspecified[ICD10: J44.9] Gely Harp NEELA Octavio HYMAN [employer] [facility] CPT-4: 82543 05/04/2018 ([id number]) OFFICE/OUTPATIENT VISIT EST Diagnosis: Essential (primary) hypertension[ICD10: I10] Diagnosis: Localized edema[ICD10: R60.0] Neela Yenni MIRZALINE Octavio HYMAN [employer] [facility] CPT-4: 58798 03/03/2018 ([id number]) OFFICE/OUTPATIENT VISIT EST Diagnosis: Localized edema[ICD10: R60.0] Neela MURILLO [employer] [facility] CPT-4: 47873 02/17/2018 ([id number]) OFFICE/OUTPATIENT VISIT EST Diagnosis: FLU VACCINE[ICD10: Z23] Diagnosis: PNEUMOCOCCAL VACCINE[ICD10: Z23] Diagnosis: Type 2 diabetes mellitus without complications[ICD10: E11.9] Diagnosis: Mixed hyperlipidemia[ICD10: E78.2] Diagnosis: Essential (primary) hypertension[ICD10: I10] Diagnosis: Localized edema[ICD10: R60.0] Diagnosis: Chronic obstructive pulmonary disease, unspecified[ICD10: J44.9] Neela MURILLO [employer] YENNI [employer] [facility] CPT-4: 69564 02/10/2018 ([id number]) OFFICE/OUTPATIENT VISIT EST Diagnosis: Type 2 diabetes mellitus with hyperglycemia[ICD10: E11.65] Diagnosis: Mixed hyperlipidemia[ICD10: E78.2] Diagnosis: Essential (primary) hypertension[ICD10: I10] Diagnosis: Chronic obstructive pulmonary disease, unspecified[ICD10: J44.9] Diagnosis: Cutaneous abscess of back [any part, except buttock][ICD10: L02.212] Neela HYMAN [employer] [facility] CPT-4: 85205 11/05/2017 ([id number]) OFFICE/OUTPATIENT VISIT EST Diagnosis: Allergic urticaria[ICD10: L50.0] Gely HYMAN [employer] [facility] CPT-4: 63881 09/09/2017 ([id number]) OFFICE/OUTPATIENT VISIT EST Diagnosis: Generalized enlarged lymph nodes[ICD10: R59.1] Diagnosis: Acute gastritis without bleeding[ICD10: K29.00] Gely HYMAN [employer] [facility] CPT-4: 67365 08/07/2017 ([id number]) OFFICE/OUTPATIENT VISIT EST Diagnosis: Type 2 diabetes mellitus without complications[ICD10: E11.9] Diagnosis: Mixed hyperlipidemia[ICD10: E78.2] Diagnosis: Essential (primary) hypertension[ICD10: I10] Neela HYMAN [employer] [facility] CPT-4: 00071 08/04/2017 ([id number]) OFFICE/OUTPATIENT VISIT EST Diagnosis: Zoster without complications[ICD10: B02.9] Diagnosis: Acute sialoadenitis[ICD10: K11.21] Gely STERLING [employer] [facility] CPT-4: 79793 06/04/2017 OFFICE/OUTPATIENT VISIT EST Diagnosis: Zoster without complications[ICD10: B02.9] Diagnosis: Acute sialoadenitis[ICD10: K11.21] Gely STERLING [employer] HYMAN [employer] [facility] CPT-4: 20492 06/02/2017 ([id number]) OFFICE/OUTPATIENT VISIT EST Diagnosis: Type 2 diabetes mellitus without complications[ICD10: E11.9] Diagnosis: Mixed hyperlipidemia[ICD10: E78.2] Diagnosis: Essential (primary) hypertension[ICD10: I10] Diagnosis: Chronic obstructive pulmonary disease, unspecified[ICD10: J44.9] Neela HYMAN [employer] [facility] CPT-4: 74478 05/05/2017 OFFICE/OUTPATIENT VISIT EST Diagnosis: Chronic obstructive pulmonary disease with acute lower respiratory infection[ICD10: J44.0] Diagnosis: Impacted cerumen, bilateral[ICD10: H61.23] Gely HYMAN [employer] [facility] CPT-4: 51070 04/10/2017 ([id number]) OFFICE/OUTPATIENT VISIT EST Diagnosis: FLU VACCINE[ICD10: Z23] Neela BUI [employer] [facility] CPT-4: 53959 03/28/2017 ([id number]) OFFICE/OUTPATIENT VISIT EST Diagnosis: Type 2 diabetes mellitus without complications[ICD10: E11.9] Diagnosis: Mixed hyperlipidemia[ICD10: E78.2] Diagnosis: Essential (primary) hypertension[ICD10: I10] Diagnosis: Chronic obstructive pulmonary disease, unspecified[ICD10: J44.9] Neela HYMAN [employer] [facility] CPT-4: 16463 02/03/2017 ([id number]) OFFICE/OUTPATIENT VISIT EST Diagnosis: Type 2 diabetes mellitus with hyperglycemia[ICD10: E11.65] Diagnosis: Mixed hyperlipidemia[ICD10: E78.2] Diagnosis: Essential (primary) hypertension[ICD10: I10] Diagnosis: Chronic obstructive pulmonary disease, unspecified[ICD10: J44.9] Neela HYMAN [employer] [facility] CPT-4: 74326 10/30/2016 ([id number]) NO CHARGE Diagnosis: Acute bronchitis, unspecified[ICD10: J20.9] Sammi Reinaldo HYMAN [employer] [facility] CPT-4: 75100 08/30/2016 ([id number]) OFFICE/OUTPATIENT VISIT EST Diagnosis: Acute bronchitis, unspecified[ICD10: J20.9] Diagnosis: Other seasonal allergic rhinitis[ICD10: J30.2] Sammi Reinaldo HYMAN [employer] [facility] CPT-4: 24429 08/27/2016 ([id number]) OFFICE/OUTPATIENT VISIT EST Diagnosis: Type 2 diabetes mellitus without complications[ICD10: E11.9] Diagnosis: Mixed hyperlipidemia[ICD10: E78.2] Diagnosis: Essential (primary) hypertension[ICD10: I10] Neela HYMAN DO [facility] CPT-4: 03372 07/02/2016 ([id number]) OFFICE/OUTPATIENT VISIT EST Diagnosis: Acute bronchitis, unspecified[ICD10: J20.9] Sammi HYMAN DO [facility] CPT-4: 10811 06/14/2016 ([id number]) OFFICE/OUTPATIENT VISIT EST Diagnosis: Acute bronchitis, unspecified[ICD10: J20.9] Sammi HYMAN DO [facility] CPT-4: 88434 06/13/2016 ([id number]) OFFICE/OUTPATIENT VISIT EST Diagnosis: Essential (primary) hypertension[ICD10: I10] Neela HYMAN DO [facility] CPT-4: 18782 05/14/2016 ([id number]) OFFICE/OUTPATIENT VISIT EST Diagnosis: Essential (primary) hypertension[ICD10: I10] Neela HYMAN DO [facility] CPT-4: 25433 04/29/2016 ([id number]) OFFICE/OUTPATIENT VISIT EST Diagnosis: Unspecified abdominal pain[ICD10: R10.9] Diagnosis: Left lower quadrant pain[ICD10: R10.32] Diagnosis: Left upper quadrant pain[ICD10: R10.12] Diagnosis: Essential (primary) hypertension[ICD10: I10] Neela HYMAN DO [facility] CPT-4: 44695 04/22/2016 ([id number]) OFFICE/OUTPATIENT VISIT EST Diagnosis: Type 2 diabetes mellitus without complications[ICD10: E11.9] Diagnosis: Mixed hyperlipidemia[ICD10: E78.2] Diagnosis: Essential (primary) hypertension[ICD10: I10] Neela HYMAN DO [facility] CPT-4: 87261 04/01/2016 ([id number]) OFFICE/OUTPATIENT VISIT EST Diagnosis: Type 2 diabetes mellitus with hyperglycemia[ICD10: E11.65] Diagnosis: Mixed hyperlipidemia[ICD10: E78.2] Diagnosis: Essential (primary) hypertension[ICD10: I10] Neela HYMAN [employer] [facility] CPT-4: 23553 11/30/2015 ([id number]) OFFICE/OUTPATIENT VISIT EST Diagnosis: Type 2 diabetes mellitus with diabetic neuropathy, unspecified[ICD10: E11.40] Diagnosis: Essential (primary) hypertension[ICD10: I10] Diagnosis: Mixed hyperlipidemia[ICD10: E78.2] Neela FRIEND OR Octavio HYMAN [employer] [facility] CPT-4: 14953 08/29/2015 ([id number]) OFFICE/OUTPATIENT VISIT EST Diagnosis: COUGH[ICD10: R05] Diagnosis: Wheezing[ICD10: R06.2] Diagnosis: Type 2 diabetes mellitus with diabetic neuropathy, unspecified[ICD10: E11.40] Neela Yenni HYMAN [employer] [facility] CPT-4: 85077 08/14/2015 ([id number]) OFFICE/OUTPATIENT VISIT EST Diagnosis: Other seasonal allergic rhinitis[ICD10: J30.2] Diagnosis: Dyspnea, unspecified[ICD10: R06.00] Diagnosis: Wheezing[ICD10: R06.2] SammiKeren HYMAN [employer] [facility] CPT-4: 29749 08/09/2015 ([id number]) OFFICE/OUTPATIENT VISIT EST Diagnosis: Essential (primary) hypertension[ICD10: I10] Diagnosis: Type 2 diabetes mellitus with hyperglycemia[ICD10: E11.65] Diagnosis: Mixed hyperlipidemia[ICD10: E78.2] Neela FRIEND OR [employer] [facility] CPT-4: 44477 05/22/2015 ([id number]) OFFICE/OUTPATIENT VISIT EST Diagnosis: 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] Diagnosis: - I - HYPERTENSION[ICD9: 401.9] Diagnosis: - I - HYPERLIPIDEMIA NEC/NOS[ICD9: 272.4] Diagnosis: Left hand paresthesia[ICD9: 782.0] Neela FRIEND ASHER [employer] HYMAN [employer] [facility] CPT-4: 67719 02/13/2015 ([id number]) OFFICE/OUTPATIENT VISIT EST Diagnosis: HYPERLIPIDEMIA NEC/NOS[ICD9: 272.4] Diagnosis: 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] Neela HYMAN [facility] CPT-4: 65344 11/07/2014 ([id number]) OFFICE/OUTPATIENT VISIT EST Diagnosis: ALLERGIC RHINITIS[ICD9: 477.9] Diagnosis: WHEEZING[ICD9: 786.07] Neela Duarte [facility] CPT-4: 18480 10/04/2014 ([id number]) OFFICE/OUTPATIENT VISIT EST Diagnosis: BRONCHITIS, ACUTE[ICD9: 466.0] Diagnosis: WHEEZING[ICD9: 786.07] Loren Duarte [facility] CPT-4: 93946 09/22/2014 ([id number]) OFFICE/OUTPATIENT VISIT EST Diagnosis: DYSPNEA[ICD9: 786.09] Diagnosis: WHEEZING[ICD9: 786.07] Diagnosis: Arrhythmia[ICD9: 427.9] Loren BUI [facility] CPT-4: 59313 09/21/2014 ([id number]) OFFICE/OUTPATIENT VISIT EST Diagnosis: 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, 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] Diagnosis: - I - HYPERLIPIDEMIA NEC/NOS[ICD9: 272.4] Diagnosis: - I - HYPERTENSION[ICD9: 401.9] Neela HYMAN [facility] CPT-4: 33293 06/28/2014 OFFICE/OUTPATIENT VISIT EST Diagnosis: SINUSITIS, ACUTE[ICD9: 461.9] Diagnosis: OTITIS MEDIA NOS[ICD9: 382.9] Sarah Sunshine NEELA HYMAN [facility] CPT-4: 22564 06/10/2014 ([id number]) OFFICE/OUTPATIENT VISIT EST Diagnosis: 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] Diagnosis: - I - HYPERLIPIDEMIA NEC/NOS[ICD9: 272.4] Diagnosis: - I - HYPERTENSION[ICD9: 401.9] Neela HYMAN [facility] CPT-4: 59182 03/29/2014 ([id number]) OFFICE/OUTPATIENT VISIT EST Diagnosis: 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] Diagnosis: - I - HYPERTENSION[ICD9: 401.9] Diagnosis: - I - HYPERLIPIDEMIA NEC/NOS[ICD9: 272.4] Diagnosis: Hand lesion[ICD9: 709.9] Neela MADRIGAL [facility] CPT-4: 05090 11/30/2013 ([id number]) OFFICE/OUTPATIENT VISIT EST Diagnosis: 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] Diagnosis: HYPERLIPIDEMIA NEC/NOS[ICD9: 272.4] Diagnosis: HYPERTENSION[ICD9: 401.9] Neela VASQUEZ [facility] CPT-4: 07111 08/03/2013 ([id number]) OFFICE/OUTPATIENT VISIT EST Diagnosis: 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, 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] Diagnosis: HYPERTENSION[ICD9: 401.9] Diagnosis: HYPERLIPIDEMIA NEC/NOS[ICD9: 272.4] [facility]: 72052 04/06/2013 ([id number]) OFFICE/OUTPATIENT VISIT EST Diagnosis: 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] Diagnosis: HYPERLIPIDEMIA NEC/NOS[ICD9: 272.4] Diagnosis: HYPERTENSION[ICD9: 401.9] Neela VASQUEZ [facility] CPT-4: 28164 12/01/2012 ([id number]) OFFICE/OUTPATIENT VISIT EST Diagnosis: 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] Diagnosis: HYPERTENSION[ICD9: 401.9] Diagnosis: HYPERLIPIDEMIA NEC/NOS[ICD9: 272.4] Neeal [facility]PT-[facility]: 15915 08/04/2012 ([id number]) OFFICE/OUTPATIENT VISIT EST Diagnosis: URINARY FREQUENCY[ICD9: 788.41] Neela Yenni HYMAN [facility] CPT-4: 20390 06/01/2012 OFFICE/OUTPATIENT VISIT EST Diagnosis: Agitation[ICD9: 307.9] Diagnosis: Frequent urination[ICD9: 788.41] Janet Jean Baptiste NEELA Octavio [facility]PT-[facility]: 44642 05/29/2012 OFFICE/OUTPATIENT VISIT EST Diagnosis: SINUSITIS, ACUTE[ICD9: 461.9] Diagnosis: OTALGIA[ICD9: 388.70] Neela Zhanginna NEELA JulissaMendez [facility] CPT-4: 25046 05/25/2012 OFFICE/OUTPATIENT VISIT EST Diagnosis: 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, 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] Diagnosis: HYPERTENSION[ICD9: 401.9] Diagnosis: HYPERLIPIDEMIA NEC/NOS[ICD9: 272.4] Neela GREGORIO S. SERGENDER [facility] CPT-4: 64801 04/07/2012 OFFICE/OUTPATIENT VISIT EST Diagnosis: FINGER INJURY[ICD9: 959.5] Janet MURILLO SMendez [facility] CPT-4: 90681 12/16/2011 ([id number]) OFFICE/OUTPATIENT VISIT EST Diagnosis: 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, 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] Diagnosis: HYPERTENSION[ICD9: 401.9] Diagnosis: HYPERLIPIDEMIA NEC/NOS[ICD9: 272.4] Neela GREGORIO S. SERGENDER [facility] CPT-4: 72864 12/03/2011 ([id number]) OFFICE/OUTPATIENT VISIT EST Diagnosis: 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] Diagnosis: HYPERLIPIDEMIA NEC/NOS[ICD9: 272.4] Diagnosis: HYPERTENSION[ICD9: 401.9] Neela Sergegemmainna NEELA JulissaMendez [facility] CPT-4: 46042 08/29/2011 OFFICE/OUTPATIENT VISIT EST Diagnosis: 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] Diagnosis: HYPERLIPIDEMIA NEC/NOS[ICD9: 272.4] Diagnosis: HYPERTENSION[ICD9: 401.9] Neela MURILLO JulissaMendez [facility] CPT-4: 11621 05/30/2011 OFFICE/OUTPATIENT VISIT EST Diagnosis: SKIN SENSATION DISTURB[ICD9: 782.0] Neela GREGORIO S. ORENDER [facility] CPT-4: 26388 01/29/2011 OFFICE/OUTPATIENT VISIT EST Diagnosis: SKIN SENSATION DISTURB[ICD9: 782.0] Neela [facility] CPT-4: 70035 01/14/2011 OFFICE/OUTPATIENT VISIT EST Neela MURILLO SMendez [facility] CPT- 4: 04816 01/01/2011 OFFICE/OUTPATIENT VISIT EST Neela [facility] CPT- 4: 11078 11/29/2010 ([id number]) OFFICE/OUTPATIENT VISIT EST Neela [facility] CPT-4: 27465 08/28/2010 ([id number]) OFFICE/OUTPATIENT VISIT, EST Neela [facility] CPT-4: 06469 06/05/2010 ([id number]) OFFICE/OUTPATIENT VISIT, EST Neela [facility] CPT-4: 51011 02/05/2010 ([id number]) OFFICE/OUTPATIENT VISIT, EST Neela [facility] CPT-4: 20317 10/09/2009 ([id number]) OFFICE/OUTPATIENT VISIT, EST Neela [facility] CPT-4: 41223 08/22/2009 Plan of Care Planned Activity Notes Codes Status Date Visit Diagnosis Plan: Mixed hyperlipidemia Discussion: Mediterranean diet and update lipids/LFTs ICD-9 : 272.4 ICD-10 : E78.2 12/01/2019 Visit Diagnosis Plan: Type 2 diabetes me llitus with diabetic neuropathy, unspecified Discussion: Lab pending Accuchecks daily Continue current meds Check CMP and HbA1C in 3mos then fwup ICD-9 : 250.60 ICD-10 : E11.40 12/01/2019 Visit Diagnosis Plan: Essential hypertension Discussio n: Stable ICD-9 : 401.9 ICD-10 : I10 12/01/2019 Visit Diagnosis Plan: Chronic obstructive pulmonary di sease, unspecified Discussion: On oxygen/SVNS ICD-9 : 496 ICD-10 : J44.9 12/01/2019 Appointment: [facility] [phone] [facility] [facility] 12/01/2019 FOLLOW UP 12/01/2019 Visit Diagnosis Plan: Type 2 diabetes mellitus with hy perglycemia Discussion: Lab tomorrow Accuchecks daily Continue current meds Check CMP and HbA1C in 3mos then fwup ICD-9 : 250.02 ICD-10 : E11.65 08/30/2019 Visit Diagnosis Plan: Chronic obstructive pulmonary di sease, unspecified Discussion: On continuous oxygen ICD-9 : 496 ICD-10 : J44.9 08/30/2019 Appointment: Neela Hyman WPtel: [address] [place] [address] [place] FOLLOW UP 08/30/2019 Visit Diagnosis Plan: [...] : J44.1 08/10/2019 Appointment: Neela Hyman WPtel: [address] [place] [address] ACUTE ILLNESS 08/10/2019 Visit Diagnosis Plan: Sore on toe Discussion: Keep farhat an/dry Keflex Notify if worsens ICD-9 : 709.9 ICD-10 : L98.9 07/06/2019 Appointment: Neela Hyman WPtel: [address] [place] [address] ACUTE ILLNESS 07/06/2019 Patient Education: Singulair- [employer] Coupon [id number] https://www.[employer]/samplemd/resources/getResource/61/4ce648xp-09v5-4h79-58 Completed 07/06/2019 Visit Diagnosis Plan: Lymphoma involving lung Discussi on: Doing weekly lab and chemo ICD-9 : 202.82 ICD-10 : C85.99 05/10/2019 Visit Diagnosis Plan: Advanced chronic obstructive pul monary disease Discussion: Continue oxygen and pulmonary rehab Follow Up: 3 months ICD-9 : 496 ICD-10 : J44.9 05/10/2019 Appointment: Neela Hyman WPtel: [address] [place], [place] [id number] FO[facility] 05/10/2019 Appointment: Neela Hyman WPtel: [address] [place] [address] he called 04/14/19-- he was at physical therapy which is why he didn't make his appointment time. NO SHOW 04/13/2019 Visit Diagnosis Plan: Chronic obstructiv e pulmonary disease with (acute) exacerbation Discussion: On continuous oxygen at 5L v ia [place] Starts pulmonary rehab next week Follow Up: 6 weeks ICD-9 : 491.21 ICD-10 : J44.1 03/29/2019 Visit Diagnosis Plan: Hypokalemia Discussion: Increase K-dur to BID Will have lab drawn at Cancer center later this week ICD-9 : 276.8 ICD-10 : E87.6 03/29/2019 Visit Diagnosis Plan: Lymphoma involving lung Discussi on: Sees oncology on Friday ICD-9 : 202.82 ICD-10 : C85.99 03/29/2019 Appointment: Neela Hyman WPtel: [address] [place] [address] Hospital Follow Up 03/29/2019 Appointment: Neela Hyman WPtel: [address] [place], [place] [phone] [place] INJECTION 03/04/2019 Visit Diagnosis Plan: Chronic obstructiv e pulmonary disease with (acute) exacerbation Discussion: Increase SVNS with duoneb to QID Prednisone taper ICD-9 : 491.21 ICD-10 : J44.1 01/05/2019 Visit Diagnosis Plan: Other nonspecific abnormal findi ng of lung field Discussion: Referral to pulmonology--will likely need bronchoscopy--path results discussed ICD-9 : 786.6 ICD-10 : R91.8 01/05/2019 Appointment: Neela Hyman WPtel: [address] [place] [address] FOLLOW UP 01/05/2019 Patient Education: prednisone- [employer] Coupon [id number] https://www.[employer].com/samplemd/resources/getResource/61/j9we4769-295r-3o04-rb Completed 01/05/2019 Care Plan: Referral Order SNOMED-CT : 30 [id number] Pending 01/05/2019 Appointment: Neela Hyman WPtel: [address] [place] [address] [place] CANCELED 12/21/2018 Visit Diagnosis Plan: Solitary pulmonary nodule Discus esmer: CT guided needle biopsy of RUL lung mass ICD-9 : 793.11 ICD-10 : R91.1 12/09/2018 Visit Diagnosis Plan: Tinea corporis Discussion: Diflu can--hold simvastatin and fenofibrate while taking ICD-9 : 110.5 ICD-10 : B35.4 12/09/2018 Appointment: Neela Hyman WPtel: [address] [place] [address] FOLLOW UP 12/09/2018 Appointment: Gely Harp [address] [place] [address] [place] NO SHOW 12/01/2018 Visit Diagnosis Plan: Chronic obstructive pulmonary di sease, unspecified Discussion: Using proair prn Prednisone and notify if worsening Discussion: Using proair prn ICD-9 : 496 ICD-10 : J44.9 11/24/2018 Visit Diagnosis Plan: Other disorders of lung Discussi on: Update PET scan and fwup with oncology Discussed may need pulmonology with Bronchoscopy ICD-9 : 518.89 ICD-10 : J98.4 11/24/2018 Appointment: Neela Hyman WPtel: [address] [place], [place] [address] [place] FOLLOW UP 11/24/2018 Care Plan: PET IMAGE FULL BODY LOINC : 4 2711-2 Pending 11/24/2018 Appointment: Neela Hyman WPtel: [address] [place], [place] [address] [place] Consult 09/21/2018 Visit Diagnosis Plan: Pneumonia, unspecified organism Discussion: Patient clinically improved. Recent CT scan from 09/07 showed unresolved right upper lobe pneumonia. Finished another 7 days of levaquin. Will repeat CBC early next week. Order sent with patient to get done at [facility]. FU CT recommended in 4 weeks. Patient states understanding. ICD-9 : 486 ICD-10 : J18.9 09/16/2018 Appointment: Amita Henderson [facility] [email or web address] [id number] FOLLOW UP 09/16/2018 Visit Diagnosis Plan: Pneumonia, unspecified organism Discussion: Clinically patient feels and looks much better but need CT scan of chest due to ongoing round pneumonia in association with his known lymphoma ICD-9 : 486 ICD-10 : J18.9 09/03/2018 Appointment: Neela Hyman WPtel: [phone] [facility] FOLLOW UP 09/03/2018 Care Plan: CT THORAX W/O DYE LOINC : 473 66-0 Pending 09/03/2018 Visit Diagnosis Plan: Type 2 diabetes mellitus with hy perglycemia Discussion: Update fasting lab before upcoming appt. with doctor[facility], CMP, TSH, Lipid, A1C ICD-9 : 250.02 ICD-10 : E11.65 08/27/2018 Visit Diagnosis Plan: Personal history of pneumonia (r ecurrent) Discussion: Much improved since last visit. Completed course of antibiotics. Seeing doctor next week for well visit. May consider repeat CXR at that appt. Patient states understanding. ICD-9 : V12.61 ICD-10 : Z87.01 08/27/2018 Visit Diagnosis Plan: Cough Discussion: Continue maint enance medications- Trelegy. ProAir as needed for shortness of breath and wheezing. Humidifier for cough. ICD-9 : 786.2 ICD-10 : R05 08/27/2018 Visit Diagnosis Plan: Essential (primary) hypertension Discussion: Stable on diltiazem. Dragan vieyrarol. Had ECHO last week. Requesting copies of results from cardiology. ICD-9 : 401.9 ICD-10 : I10 08/27/2018 Appointment: Amita Henderson [facility] [email or web address] [id number] [place] FOLLOW UP 08/27/2018 Visit Diagnosis Plan: Pneumonia, unspecified organism Discussion: [...] ICD-9 : 401.9 ICD-10 : I10 08/13/2018 Visit Diagnosis Plan: Other specified sy mptoms and signs involving the circulatory and respiratory systems Discussion: Go back to 40 mg lasix daily and 20 of potassium. ECHO scheduled this week. Patient states understanding. ICD-9 : 785.9 ICD-10 : R09.89 08/13/2018 Appointment: Amita Henderson [facility] [email or web address] [address] FOLLOW UP 08/13/2018 Appointment: Amita Henderson [facility] [email or web address] [address] CANCELED 08/13/2018 Patient Education: prednisone- [employer] Coupon [id number] https://www.[employer]/samplemd/resources/getResource/61/xs84qv6w-1w34-7mf8-6w Completed 08/13/2018 Visit Diagnosis Plan: Other specified [...] ICD-10 : J18.9 08/11/2018 Appointment: Amita Henderson [address] [place], [place] [id number] ACUTE ILLNESS 08/11/2018 Care Plan: CHEST X-RAY 2VW FRONTAL&LATL LOINC : 49205-1 Pending 07/20/2018 Visit Diagnosis Plan: Dyspnea, unspecified Discussion: CXR- to be completed at the hospital. Will call with results and any adjustments in plan. Solumedrol 125 administered in clinic Prednisone 20 mg BID x 5 days- start tomorrow ICD-9 : 786.09 ICD-10 : R06.00 07/16/2018 Appointment: Amita Henderson [address] [place], [place] [phone] ACUTE ILLNESS 07/16/2018 Patient Education: prednisone- [employer] Coupon [id number] https://www.[address] street/samplePythag[employer]/resources/getResource/61/14q9b7pt-hs44-1if0-g0 Completed 07/16/2018 Visit Diagnosis Plan: Acute bronchitis due to other sp ecified organisms Discussion: Kenalog 40 mg IM administered in clinic. Doxycycline called into [facility]. Take as directed. Continue nebulizer and Trelegy. Follow up if symptoms are not improving with treatment regimen. Patient states understanding of all instruction. ICD-9 : 466.0 ICD-10 : J20.8 07/13/2018 Appointment: Amita Henderson [address] [place], [place] [phone] ACUTE ILLNESS 07/13/2018 Patient Education: doxycycline hyclate- [employer] Cou saritha [id number] https://www.[employer]/samplemd/resources/getResource/61/9s499w74-8b3d-1604-1c Completed 07/13/2018 Care Plan: [place] : [address]-5 Pending 07/13/2018 Care Plan: CBC Pending 07/13/2018 Care Plan: A1C HPLC LOINC : 30981-7 Pending 07/13/2018 Visit Diagnosis Plan: Mixed hyperlipidemia Discussion: Stable Lab discussed ICD-9 : 272.4 ICD-10 : E78.2 06/03/2018 Visit Diagnosis Plan: Type 2 diabetes mellitus with hy perglycemia Discussion: Lab discussed Accuchecks daily Continue current meds ICD-9 : 250.02 ICD-10 : E11.65 06/03/2018 Visit Diagnosis Plan: Chronic obstructive pulmonary di sease, unspecified Discussion: Stable ICD-9 : 496 ICD-10 : J44.9 06/03/2018 Visit Diagnosis Plan: Essential (primary) hypertension Discussion: Stable ICD-9 : 401.9 ICD-10 : I10 06/03/2018 Appointment: Neela Hyman WPtel: [address] [place] [address] [place] FOLLOW UP 06/03/2018 Visit Diagnosis Plan: [...] ICD-10 : J44.9 05/04/2018 Appointment: Gely Harp [address] [place] [address] ACUTE ILLNESS 05/04/2018 Visit Diagnosis Plan: Localized edema Discussion: Cont inue lasix and potassium at every other day Recheck lab and fwup in 3mos Follow Up: 3 months ICD-9 : 782.3 ICD-10 : R60.0 03/03/2018 Appointment: Neela Hyman WPtel: [address] [place] [address] FOLLOW UP 03/03/2018 Patient Education: Patient Medication Summary Completed 03/03/2018 Visit Diagnosis Plan: Localized edema Discussion: Finch ge lasix and potassium to every other day Check Chem 7 in 2 weeks and fwup ICD-9 : 782.3 ICD-10 : R60.0 02/17/2018 Appointment: Neela Hyman WPtel: [address] [place] [address] FOLLOW UP 02/17/2018 Patient Education: Patient Medication Summary Completed 02/17/2018 Visit Diagnosis Plan: Localized edema Discussion: Lasi x and potassium and recheck 1 week ICD-9 : 782.3 ICD-10 : R60.0 02/10/2018 Visit Diagnosis Plan: Type 2 diabetes [...] ICD-10 : I10 02/10/2018 Visit Diagnosis Plan: Mixed hyperlipidemia Discussion: Stable ICD-9 : 272.4 ICD-10 : E78.2 02/10/2018 Appointment: [facility]Ptel[facility] [phone] [facility] FO[facility] 02/10/2018 Patient Education: Patient Medication Summary Completed 02/10/2018 Visit Diagnosis Plan: Cutaneous abscess of back [...] ICD-9 : 682.2 ICD-10 : L02.212 11/05/2017 Visit Diagnosis Plan: Mixed hyperlipidemia Discussion: Lab discussed Go back to routine exercise ICD-9 : 272.4 ICD-10 : E78.2 11/05/2017 Visit Diagnosis Plan: Type 2 diabetes mellitus with hy perglycemia Discussion: Lab discussed Accuchecks daily Go back to Y and exercise Follow Up: 3 months ICD-9 : 250.02 ICD-10 : E11.65 11/05/2017 Visit Diagnosis Plan: Essential (primary) hypertension Discussion: Stable ICD-9 : 401.9 ICD-10 : I10 11/05/2017 Appointment: Neela [facility]yman [facility]Ptel[facility] [phone] [facility] [facility] 11/05/2017 Patient Education: Patient Medication Summary Completed 11/05/2017 Patient Education: Patient Medication Summary Completed 11/03/2017 Care Plan: [place] : [address]-4 Pending 11/03/2017 Care Plan: LIPID PANEL LOINC : 85067-9 Pending 11/03/2017 Care Plan: CBC Pending 11/03/2017 Care Plan: A1C HPLC LOINC : 29648-7 Pending 11/03/2017 Visit Diagnosis Plan: Allergic urticaria [...] ICD-10 : L50.0 09/09/2017 Appointment: Gely Harp [facility] ACUTE ILLNESS 09/09/2017 Patient Education: Patient Medication Summary Completed 09/09/2017 Visit Diagnosis Plan: Generalized enlarged lymph nodes [...] ICD-9 : 785.6 ICD-10 : R59.1 08/07/2017 Visit Diagnosis Plan: Acute gastritis without bleeding Discussion: bactrim, flagyl sent out to cover for diverticulitis since patient is continuing to have symptoms of diarrhea and left quadrant pain. instructed to increase fluid intake and to stick with clear liquids for a few days. if worsening symptoms over the weekend, go to ED. ICD-9 : 535.00 ICD-10 : K29.00 08/07/2017 [facility] [facility] 08/07/2017 Patient Education: Patient Medication Summary Completed 08/07/2017 Visit Diagnosis Plan: Type 2 diabetes mellitus without complications Discussion: Accuchecks daily Lab discussed Continue current meds ICD-9 : 250.00 ICD-10 : E11.9 08/04/2017 Visit Diagnosis Plan: Essential (primary) hypertension Discussion: Increase Cardizem CD to 360mg daily ICD-9 : 401.9 ICD-10 : I10 08/04/2017 Appointment: Neela Hyman WPtel: [phone] [facility] FO[facility] 08/04/2017 Patient Education: Patient Medication Summary Completed 08/04/2017 Patient Education: Patient Medication Summary Completed 07/31/2017 Care Plan: [place] : [address]-4 Pending 07/31/2017 Care Plan: ASSAY THYROID STIM HORMONE Pen ding 07/31/2017 Care Plan: LIPID PANEL LOINC : 01147-8 Pending 07/31/2017 Care Plan: CBC Pending 07/31/2017 Care Plan: A1C HPLC LOINC : 87367-3 Pending 07/31/2017 Patient Education: Patient Medication Summary Completed 06/19/2017 Patient Education: Patient Medication Summary Completed 06/09/2017 Care Plan: CT SOFT TISSUE [place] : [address]-8 Pending 06/09/2017 Visit Diagnosis Plan: Zoster without complications Dis cussion: improved, continue with current regimen. call or rtc if spreads or does not relieve. ICD-9 : 053.9 ICD-10 : B02.9 06/04/2017 Visit Diagnosis Plan: Acute sialoadenitis Discussion: improved, continue with current antibiotics. if not better by next week, call or rtc and will refer to ent. if worsens or new symptoms develop, call or rtc as well. ICD-9 : 527.2 ICD-10 : K11.21 06/04/2017 Appointment: Gely Harp [address] [place], [place] [address] ACUTE ILLNESS 06/04/2017 Patient Education: Patient Medication [...] : B02.9 06/02/2017 Appointment: Gely Harp [address] [facility] ACUTE ILLNESS 06/02/2017 Patient Education: Patient Medication Summary Completed 06/02/2017 Visit Diagnosis Plan: Essential (primary) hypertension Discussion: Increase Cardizem ER to 300mg q HS BP check in 1month ICD-9 : 401.9 ICD-10 : I10 05/05/2017 Visit Diagnosis Plan: Type 2 diabetes mellitus without complications Discussion: Continue current meds Accuchecks daily Follow Up: 3 months ICD-9 : 250.00 ICD-10 : E11.9 05/05/2017 Visit Diagnosis Plan: Mixed hyperlipidemia Discussion: Stable ICD-9 : 272.4 ICD-10 : E78.2 05/05/2017 Appointment: Neela Hyman WPtel: [phone] [facility] FO[facility] 05/05/2017 Patient Education: Patient Medication Summary Completed 05/05/2017 Patient Education: Patient Medication Summary Completed 05/01/2017 Care Plan: A1C HPLC [facility] : 71575-5 Pending 05/01/2017 Visit Diagnosis Plan: Chronic obstructiv [...] : H61.23 04/10/2017 Appointment: [facility] [address] [facility] 04/10/2017 Patient Education: Patient Medication Summary Completed 04/10/2017 Appointment: Neela Hyman WPtel: [address] [place], [place] [address] INJECTION 03/28/2017 Patient Education: Patient Medication Summary Completed 03/28/2017 Visit Diagnosis Plan: Essential (primary) hypertension Discussion: Stable ICD-9 : 401.9 ICD-10 : I10 02/03/2017 Visit Diagnosis Plan: Chronic obstructive pulmonary di sease, unspecified Discussion: Stable ICD-9 : 496 ICD-10 : J44.9 02/03/2017 Visit Diagnosis Plan: Type 2 diabetes mellitus without complications Discussion: Lab discussed Accuchecks daily Continue current meds Follow Up: 3 months ICD-9 : 250.00 ICD-10 : E11.9 02/03/2017 Appointment: Neela Hyman WPtel: [address] [place], [place] [phone] FOLLOW UP 02/03/2017 Patient Education: Patient Medication Summary Completed 02/03/2017 Patient Education: Patient Medication Summary Completed 01/30/2017 Care Plan: COMPREH[place] : 72[address]-7 Pending 01/30/2017 Care Plan: LIPID PANEL LOINC : 61401-1 Pending 01/30/2017 Care Plan: CBC Pending 01/30/2017 Care Plan: A1C HPLC LOINC : 30972-4 Pending 01/30/2017 Care Plan: ASSAY OF PSA TOTAL LOINC : 12 841-3 Pending 01/30/2017 Visit Diagnosis Plan: Chronic obstructive pulmonary di sease, unspecified Discussion: Doing pulmonary rehab and following with Dr. Levi Follow Up: As needed ICD-9 : 496 ICD-10 : J44.9 10/30/2016 Visit Diagnosis Plan: Type 2 diabetes mellitus with hy perglycemia Discussion: Lab discussed Accuchecks daily Continue current meds Follow Up: 3 months ICD-9 : 250.02 ICD-10 : E11.65 10/30/2016 Visit Diagnosis Plan: Essential (primary) hypertension Discussion: Stable ICD-9 : 401.9 ICD-10 : I10 10/30/2016 Appointment: Neela Hyman WPtel: [address] [place], [place] [id number] [place] / lm ~sl 10/30 confirmed~sl FOLLOW UP 11/2016 Patient Education: Patient Medication Summary Completed 10/30/2016 Patient Education: Patient Medication Summary Completed 10/24/2016 Visit Diagnosis Plan: Acute bronchitis, unspecified Di scussion: Patient sounds and looks much improved Continue current regimen Keep appt with Dr Levi for Friday Follow up PRN ICD-9 : 466.0 ICD-10 : J20.9 08/30/2016 App[facility]ment[id number] [place] 4/6 rang and rang rang / rang and [...] : J20.9 08/27/2016 App[facility]ment[facility] [facility] 08/27/2016 Patient Education: Patient Medication Summary Completed 08/27/2016 Care Plan: Referral Order SNOMED-CT : [id number] Pending 08/27/2016 Visit Diagnosis Plan: Type 2 diabetes mellitus without complications Discussion: Continue metformin and accuchecks daily Follow Up: 4 months ICD-9 : 250.00 ICD-10 : E11.9 07/02/2016 Visit Diagnosis Plan: Essential (primary) hypertension Discussion: Continue current meds and monitor ICD-9 : 401.9 ICD-10 : I10 07/02/2016 Visit Diagnosis Plan: Mixed hyperlipidemia Discussion: Lab discussed Change zocor to lipitor with next refill ICD-9 : 272.4 ICD-10 : E78.2 07/02/2016 Appointment: Neela Hyman WPtel: [address] [place], [place] [id number] 07/01 lorrie` FOLLOW UP 7 Patient Education: Patient Medication Summary Completed 07/02/2016 Patient Education: Patient Medication Summary Completed 06/27/2016 Care Plan: LIPID PANEL LOINC : 33131-8 Pending 06/27/2016 Care Plan: [place]AB[place] : 11636-7 Pending 06/27/2016 Care Plan: A1C HPLC LOINC : 33628-1 Pending 06/27/2016 Visit Diagnosis Plan: Acute bronchitis, [...] ICD-10 : J20.9 06/14/2016 Appointment: Sammi Najera [address] [place], [place] [id number] FOLLOW UP 06/14/2016 Patient Education: Patient Medication [...] ICD-10 : J20.9 06/13/2016 Appointment: Sammi Najera [address] [place], [place] [id number] ACUTE ILLNESS 06/13/2016 Patient Education: Patient Medication Summary Completed 06/13/2016 Care Plan: CHEST X-RAY 2VW FRONTAL&LATL LOINC : 03135-4 Pending 06/13/2016 Visit Plan: Increase metoprolol to 100mg po BID BP readings and BP check in 1month 05/14/2016 Appointment: Neela Hyman WPtel: [address] [place], [place] [id number] 05/13 rang and rang`sl FOLLOW UP 6 Patient Education: Patient Medication Summary Completed 05/14/2016 Visit Plan: Increase metoprolol to 50mg BID BP check in 1 week f/u BP appt 2 weeks consider musculoskeletal if pain returns 04/29/2016 Appointment: Neela Hyman WPtel: [address] [place] [address] 04/25 confimred~sl FOLLOW UP 04/29/2016 Patient Education: Patient Medication Summary Completed 04/29/2016 Visit Plan: Stat CT scan of abdomen/pelv is to look for stone Hydrate and use tramadol prn Increase metoprolol to 25mg po BID Will see urology pending CT scan results 04/22/2016 Appointment: Neela Hyman WPtel: [address] [place] [address] 04/17 confirmed-sp ACUTE ILLNESS 04/22/2016 Patient Education: [...] flu shot 04/01/2016 Appointment: Neela Hyman WPtel: [address] [place], [place] [phone] FOLLOW UP 04/01/2016 Patient Education: Patient Medication Summary Completed 04/01/2016 Patient Education: [facility] - Saving AutoInj - 18-64 - Dynamic Heber l ID Completed 04/01/2016 Patient Education: Patient Medication Summary Completed 03/28/2016 Care Plan: A1C HPLC LOINC : 02950-2 Pending 03/28/2016 Care Plan: [place] : 78972-9 Pending 03/28/2016 Visit Plan: Lab discussed Continue curre nt meds Accuchecks daily 11/30/2015 Appointment: Neela Hyman WPtel: [address] [place] [address] 11/28 confirmed~sl FOLLOW UP 11/30/2015 Patient Education: Patient Medication Summary Completed 11/30/2015 Appointment: Neela Hyman WPtel: [address] [place] [address] [place] RESCHEDULED 11/28/2015 Patient Education: Patient Medication Summary Completed 11/23/2015 Care Plan: COMPREH[place] : 594[address]-0 Pending 11/23/2015 Care Plan: LIPID PANEL LOINC : 31956-2 Pending 11/23/2015 Care Plan: CBC Pending 11/23/2015 Care Plan: A1C HPLC LOINC : 30604-3 Pending 11/23/2015 Visit Plan: Lab discussed Accuchecks richard ly Continue current meds Cymbalta helping with feet and mood 08/29/2015 Appointment: Neela Hyman WPtel: [address] [place] [address] FOLLOW UP 08/29/2015 Patient Education: Patient Medication Summary Completed 08/29/2015 Visit Plan: Check CXR Stop all steroids and steroid inhalers Use SVN with but change to duoneb Add singulair for allergy etiology Change fluoxetine to cymbalta 60mg daily Viagra samples given to try prn--warned of no nitrates 08/14/2015 Appointment: Neela Hyman WPtel: [address] [place], [place] [phone] lm to reschedule ~sl 07/27 lm ~sl 08/09 busy 08/10 fer rosales-riley Annual Well Visit 08/14/2015 Patient Education: Patient Medication Summary Completed 08/14/2015 Care Plan: CHEST X-RAY 2VW FRONTAL&LATL LOINC : 48582-2 Ordered 08/14/2015 Visit Plan: Decadron 8mg given [...] as expected 08/09/2015 Appointment: Sammi Najera [address] [facility] ER Follow UP 08/09/2015 Patient Education: Patient [...] with it 05/22/2015 Appointment: Neela Hyman WPtel: [address] [place], [place] [phone] 05/17 confirmed~sl FOLLOW UP 05/22/2015 Patient Education: Patient Medication Summary Completed 05/22/2015 Patient Education: Patient Medication Summary Completed 05/15/2015 Visit Plan: Obtain EMGs done at [place] from when fractured left arm Lab discussed Accuchecks daily 02/13/2015 Appointment: Neela Hyman WPtel: [address] [place], [place] [phone] 02/10 confrimed FOLLOW UP 02/13/2015 Patient Education: Patient Medication Summary Completed 02/13/2015 Patient Education: Patient Medication Summary Completed 02/09/2015 Visit Plan: discussed lab add fenofibrat e 134mg po daily recheck fasting lab in 3 months, CBC, CMP, Lipids, hgb AIC 11/07/2014 Appointment: Neela Hyman WPtel: [address] [place], [place] [phone] 11/04 appt confirmed cn FOLLOW UP 015 Patient Education: Patient Medication Summary Completed 11/07/2014 Patient Education: Patient Medication Summary Completed 11/03/2014 Visit Plan: Continue loratadine 10mg richard ly Notify if symptoms return 10/04/2014 Appointment: Neela Hyman WPtel: [address] [place] [address] confirmed on 10/03 at 2:42pm FOLLOW UP 09/23 Patient Education: Patient Medication Summary Completed 10/04/2014 Appointment: Neela Hyman WPtel: [address] [place] [address] ACUTE ILLNESS 09/28/2014 Appointment: Loren Garza WPtel: [address] [place] [address] FOLLOW UP 09/22/2014 Patient Education: Patient Medication Summary Completed 09/22/2014 Appointment: Loren Garza WPtel: [address] [place] [address] ACUTE ILLNESS 09/21/2014 Patient Education: Patient Medication Summary Completed 09/21/2014 Patient Education: [facility] - Saving AutoInj - 18+ - Dynamic Portal ID Completed 09/21/2014 Visit Plan: Lab discussed Continue daily accuchecks Continue current meds 06/28/2014 Appointment: Neela Hyman WPtel: [address] [place], [place] [phone] FOLLOW UP 06/28/2014 Patient Education: Patient Medication Summary Completed 06/28/2014 Patient Education: Patient Medication Summary Completed 06/23/2014 Appointment: Sarah Sunshine WPtel: [address] [place], [place] [phone] ACUTE ILLNESS 06/10/2014 Patient Education: Patient Medication Summary Completed 06/10/2014 Patient Education: [facility] - Saving AutoInj - 18+ - Dynamic Portal ID Completed 06/10/2014 Visit Plan: Lab discussed Continue daily accuchecks Continue current meds 03/29/2014 Appointment: Neela Hyman WPtel: [address] [place], [place] [phone] FOLLOW UP 03/29/2014 Patient Education: Patient Medication Summary Completed 03/29/2014 Patient Education: Patient Medication Summary Completed 03/23/2014 Visit Plan: Lab discussed Continue curre nt meds and accuchecks See surgery for removal of hand lesion 11/30/2013 Appointment: Neela Hyman WPtel: [address] [place], [place] [phone] 11/29 no answer FOLLOW UP 11/30/2013 Patient Education: Patient Medication Summary Completed 11/30/2013 Visit Plan: Lab discussed Continue curre nt meds 08/03/2013 Appointment: Neela Hyman WPtel: [address] [place] [address] FOLLOW UP 08/03/2013 Patient Education: Patient Medication Summary Completed 08/03/2013 Visit Plan: Lab Discussed Will continue current meds and pt will get back on diet/exercise Check lab in 4mos and fwup 04/06/2013 Appointment: Neela Hyman WPtel: [address] [place], [place] [phone] FOLLOW UP 04/06/2013 Patient Education: Patient Medication Summary Completed 04/06/2013 Visit Plan: Lab discussed Continue daily accuchecks 12/01/2012 Appointment: Neela Hyman WPtel: [address] [place], [place] [phone] 11/30 no answer FOLLOW UP 12/01/2012 Patient Education: Patient Medication Summary Completed 12/01/2012 Visit Plan: Continue current meds and da russell accuchecks Lab discussed 08/04/2012 Appointment: Neela Hyman WPtel: [address] [place] [address] FOLLOW UP 08/04/2012 Patient Education: Patient Medication Summary Completed 08/04/2012 Appointment: Neela Hyman WPtel: [address] [place], [place] [phone] [facility] 06/01/2012 Patient Education: Patient Medication Summary Completed 06/01/2012 Appointment: Janet Jean Baptiste WPtel: [address] [place], [place] [phone] FOLLOW UP 05/29/2012 Patient Education: Patient Medication Summary Completed 05/29/2012 Visit Plan: pt states Dr. Hyman told h is to increase his Prozac dose while she was talking to her at [facility]. Discussed that pt. should not increase or decrease dosage without Dr's knowledge. Pt. will seek hearing test here in town at the hearing aid place on [address]. Discussed that ear pain is likely caused by sinus pressure. Pt. will notify if no improvement. 05/25/2012 Appointment: Janet Jean Baptiste WPtel: [address] [place], [place] [phone] ACUTE ILLNESS 05/25/2012 Patient Education: Patient Medication Summary Completed 05/25/2012 Visit Plan: Continue current meds Contin ue daily accuchecks but alternate times Increase fish oil to 3gm daily 04/07/2012 Appointment: Neela Hyman WPtel: [address] [place], [place] [phone] 04/06 FOLLOW UP 04/07/2012 Patient Education: Patient Medication Summary Completed 04/07/2012 Appointment: Janet Jean Baptiste WPtel: [address] [place], [place] [phone] ACUTE ILLNESS 12/16/2011 Patient Education: Patient Medication Summary Completed 12/16/2011 Visit Plan: Increase 12/03/2011 Appointment: Neela Hyman WPtel: [address] [place], [place] [phone] FOLLOW UP 12/03/2011 Patient Education: Patient Medication Summary Completed 12/03/2011 Visit Plan: Continue current meds Contin ue accuchecks 08/29/2011 Appointment: Neela Hyman WPtel: [address] [place], [place] [phone] [place] FOLLOW UP 08/29/2011 Patient Education: Patient Medication Summary Completed 08/29/2011 Visit Plan: Continue current meds except restart zocor 05/30/2011 Appointment: Neela Hyman WPtel: [address] [place], [place] [phone] [place] FOLLOW UP 05/30/2011 Patient Education: Patient Medication Summary Completed 05/30/2011 Visit Plan: Continue tennis elbow strap May go back to weight-lifing--light weigts every other day 01/29/2011 Appointment: Neela Hyman WPtel: [address] [place] [address] [place] FOLLOW UP 01/29/2011 Patient Education: Patient Medication Summary Completed 01/29/2011 Visit Plan: Continue tennis elbow strap and anti-inflammatories 01/14/2011 Appointment: Neela Hyman WPtel: [address] [place] [address] FOLLOW UP 01/14/2011 Appointment: Janet Jean Baptiste WPtel: [address] [place] [address] NEW PATIENT 01/14/2011 Patient Education: Patient Medication Summary Completed 01/14/2011 Appointment: Neela Hyman WPtel: [address] [place] [address] FOLLOW UP 01/08/2011 Appointment: Neela Hyman WPtel: [address] [place] [address] FOLLOW UP 01/01/2011 Appointment: Neela Hyman WPtel: [address] [place], [place] [phone] 01/01/2011 Patient Education: Patient Medication Summary [...] given. 11/29/2010 Appointment: Janet Jean Baptiste WPtel: [address] [place] [address] ACUTE ILLNESS 11/29/2010 Patient Education: Patient Medication Summary Completed 11/29/2010 Visit Plan: Cont current meds Check CMP, Lipids, HbA1C 08/28/2010 Appointment: Neela Hyman WPtel: [address] [place] [address] FOLLOW UP 08/28/2010 Patient Education: Patient Medication Summary Completed 08/28/2010 Visit Plan: Cont current meds and accuch ecks Add Zocor 40mg q HS Check Lipids and HbA1C in 3mos 06/05/2010 Appointment: Neela Hyman WPtel: [address] [place] [address] FOLLOW UP 06/05/2010 Patient Education: Patient Medication Summary Completed 06/05/2010 Visit Plan: Check Lipids and HbA1C 02/05/2010 Appointment: Neela Hyman WPtel: [address] [place] [address] FOLLOW UP 02/05/2010 Patient Education: Patient Medication Summary Completed 02/05/2010 Visit Plan: HbA1C in 3mos. Continue Accu checks BID alternating times. Check HbA1C, CMP, Lipids 10/09/2009 Appointment: Neela Hyman WPtel: [address] [place] [address] FOLLOW UP 10/09/2009 Patient Education: Patient Medication Summary Completed 10/09/2009 Visit Plan: Saline nasal flushes prn. Ty lenol/Motrin prn headache. Notify if persists/symptoms worsening. 08/22/2009 Appointment: Neela Hyman WPtel: [address] [place] [address] ACUTE ILLNESS 08/22/2009 Patient Education: Patient Medication Summary Completed 08/22/2009 Referral: Aubrey Rand WPtel: [address] [place], [place] [phone] [place] Office will verfy his insurance then they will contact patient Completed Referral: Shahbaz Brennan WPtel: [address] [facility] 201 [id number] [place] Referral Completed Referral: Ion Levi [address] [facility] C&D [id number] [place] Referral Appointment Requested Referral: AmitaIon [address] [facility] C&D [id number] [place] Referral Appointment Requested Instructions Comment . [...] with it . Obtain EMGs done at [place] from when fractured left arm Lab discussed [...] while she was talking to her at [facility]. Discussed that pt. should not increase or decrease dosage without 's knowledge. Pt. will seek hearing test here in town at the hearing aid place on [address]. Discussed that ear pain is likely caused [...]
--- OUTSIDE RECORDS SUMMARY | 2019-12-09 08:52 | XMS REPORT | CCD ---
Author Author Michael Hyman D.O. Organization [facility] Address [address] [place] [address] Phone Care Team Providers Care Human Resources Project Coordinator Name Role Phone Neela Hyman D.O., PP Unavailable CCM Unavailable Summary Purpose Interface Exchange Insurance Providers Payer name Policy type / Coverage type Covered libertarian ID Effective Begin Date Effective End Date ABS FOR [employer] Commercial Insurance [id number] Unknown Family History Family History data not found Social History Social History Element Codes Description Effective Dates Marital status Unknown 05/30/[address]: 0056936 Former smoker quit 25 years ago 01/01/2011 [...] Start Date Stop Date Status Fill Instructions potassium chloride ER 20 mEq tablet,extended release RxNorm: 135115 TAKE ONE TABLET BY MOUTH TWO TIMES A DAY 11/01/2019 01/29/2020 Active Zocor 40 mg tablet RxNorm: 699173 TAKE ONE TABLET BY M OUTH EVERY NIGHT AT BEDTIME 10/20/2019 04/16/2020 Active MagOx 400 mg (241.3 mg magnesium) tablet RxNorm: 579977 TAKE ONE TABLET BY MOUTH EVERY DAY 10/20/2019 04/16/2020 Active fenofibrate micronized 134 mg capsule RxNorm: 338084 1 Capsule( s) Oral QD 09/22/2019 03/20/2020 Active metformin 500 mg tablet RxNorm: 951912 2 Tablet(s) Oral two afshan es a day 09/22/2019 12/20/2019 Active Benicar 40 mg tablet RxNorm: 486922 1 Tablet(s) Oral QD 09/22/2019 Active Singulair 10 mg tablet RxNorm: 154463 TAKE ONE TABLET BY MOUTH EVERY EVENING 09/22/2019 03/20/2020 Active Reselected prescribe r from [facility] to [facility] Lasix 40 mg tablet RxNorm: 904976 1 Tablet(s) Oral QD 08/24/201910/25 Inactive duloxetine 60 mg capsule,delayed release RxNorm: 183979 TAKE ONE CAPSULE BY MOUTH EVERY DAY 08/16/2019 02/11/2020 Active metoprolol succinate ER 100 mg tablet,extended release 24 hr RxNorm: 676061 TAKE ONE TABLET BY MOUTH TWICE A DAY 08/16/2019 05/11/2020 Active potassium chloride ER 20 mEq tablet,extended release RxNorm: 507946 1 Tablet(s) Oral two times a day 07/22/2019 10/19/2019 Inactive metformin 500 mg tablet RxNorm: 932975 2 Tablet(s) Oral two afshan es a day 07/13/2019 09/21/2019 Inactive Keflex 500 mg capsule RxNorm: 651856 1 Capsule(s) Oral three ti mes a day 07/06/2019 07/13/2019 Inactive Singulair 10 mg tablet RxNorm: 897328 TAKE ONE TABLET BY MOUTH EVERY EVENING 07/06/2019 09/21/2019 Inactive Reselected prescribe r from [facility] to [facility] Singulair 10 mg tablet RxNorm: 239819 TAKE ONE TABLET BY MOUTH EVERY EVENING 06/22/2019 07/05/2019 Inactive Reselected prescribe r from [facility] to [facility] Zocor 40 mg tablet RxNorm: 974050 TAKE ONE TABLET BY M OUTH EVERY NIGHT AT BEDTIME 06/21/2019 10/19/2019 Inactive MagOx 400 mg (241.3 mg magnesium) tablet RxNorm: 442077 1 Table t(s) Oral QD 06/21/2019 08/20/2019 Inactive diltiazem ER 360 mg capsule,24 hr,extended release RxNorm: 8 24507 TAKE ONE CAPSULE BY MOUTH AT BEDTIME -REPLACES 300MG 05/17/2019 11/12/2019 Inactive MagOx 400 mg (241.3 mg magnesium) tablet RxNorm: 222661 1 Table t(s) Oral QD 04/26/2019 06/20/2019 Inactive Lasix 40 mg tablet RxNorm: 807317 40 MG PO DAILY 04/12/2019 08/23/2019 Inactive Benicar 40 mg tablet RxNorm: 304823 1 Tablet(s) Oral QD 03/29/2019 Inactive potassium chloride ER 20 mEq tablet,extended release RxNorm: 131362 1 Tablet(s) Oral two times a day 03/29/2019 06/27/2019 Inactive potassium chloride ER 20 mEq tablet,extended release RxNorm: 079696 1 Tablet(s) Oral QD 03/29/2019 03/28/2019 Inactive Benicar 40 mg tablet RxNorm: 679450 1 Tablet(s) Oral QD 03/29/2019 Inactive MagOx 400 mg (241.3 mg magnesium) tablet RxNorm: 802514 1 Table t(s) Oral QD 03/29/2019 04/25/2019 Inactive metformin 500 mg tablet RxNorm: 326504 2 Tablet(s) Oral two afshan es a day 03/29/2019 07/12/2019 Inactive fenofibrate micronized 134 mg capsule RxNorm: 572698 TA KE ONE CAPSULE BY MOUTH EVERY DAY 03/05/2019 09/21/2019 Inactive duloxetine 60 mg capsule,delayed release RxNorm: 641590 1 Capsu le(s) PO QD 01/28/2019 07/26/2019 Inactive Trelegy Ellipta 100 mcg-62.5 mcg-25 mcg powder for inhalatio n RxNorm: 6489509 1 Puff(s) INH QD 01/06/2019 12/31/2019 Active 90 day supply prednisone 20 mg tablet RxNorm: 135752 1 Tablet(s) PO T ID for 3 days then 1 po BID for 3 days then 1 po daily for 3 days 01/05/2019 03/28/2019 Inacti ve metformin ER 1,000 mg tablet,extended release 24hr RxNorm: 1 681675 TAKE TWO TABLETS (1000MG) BY MOUTH TWO TIMES A DAY 12/22/2018 07/13/2019 Inacti ve Diflucan 100 mg tablet RxNorm: 823039 1 Tablet(s) PO QD 12/09/2018 Inactive prednisone 20 mg tablet RxNorm: 858010 1 Tablet(s) PO B ID for 4 days then 1 po daily for 4 days 11/24/2018 01/04/2019 Inactive albuterol sulfate 2.5 mg/3 mL (0.083 %) solution for n ebulization RxNorm: 049112 3 Milliliter(s) INH ONE VIAL VIA NEBULIZER EVERY 4 HOURS 019 07/21/2019 Inactive [AttnRPh: Saving apply/adjudicate RxGRP: SG20 RxBIN:[id number] RxPCN: ID#:[id number]] Trelegy Ellipta 100 mcg-62.5 mcg-25 mcg powder for inhalatio n RxNorm: 7737509 1 Puff(s) INH QD 10/27/2018 01/06/2019 Inactive 90 day supply diltiazem ER 360 mg capsule,24 hr,extended release RxNorm: 8 57960 TAKE ONE CAPSULE BY MOUTH AT BEDTIME -REPLACES 300MG 10/13/2018 04/10/2019 Inactive metoprolol succinate ER 100 mg tablet,extended release 24 hr RxNorm: 711602 TAKE ONE TABLET BY MOUTH TWICE A DAY 10/13/2018 07/09/2019 Inactive Trelegy Ellipta 100 mcg-62.5 mcg-25 mcg powder for inhalatio n RxNorm: 1870646 INHALE ONE PUFF ONCE DAILY 09/07/2018 10/27/2018 Inactive Levaquin 750 mg tablet RxNorm: 599400 1 Tablet(s) PO QD 09/07/2018 Inactive Levaquin 750 mg tablet RxNorm: 935726 1 Tablet(s) PO QD 09/07/2018 Inactive prednisone 20 mg tablet RxNorm: 963425 2 Tablet(s) PO QAM 08/13/2018 08/19/2018 Inactive Levaquin 500 mg tablet RxNorm: 488774 1 Tablet(s) PO QD 08/11/2018 Inactive fenofibrate micronized 134 mg capsule RxNorm: 211739 TA KE ONE CAPSULE BY MOUTH EVERY DAY 08/10/2018 02/05/2019 Inactive prednisone 20 mg tablet RxNorm: 272772 1 Tablet(s) PO BID 07/16/2018 07/20/2018 Inactive doxycycline hyclate 100 mg capsule RxNorm: 6581638 1 Capsule(s) PO BID 07/13/2018 07/22/2018 Inactive duloxetine 60 mg capsule,delayed release RxNorm: 322741 TAKE ONE CAPSULE BY MOUTH ONCE A DAY 07/08/2018 01/28/2019 Inactive Lasix 40 mg tablet RxNorm: 948595 1 TABLET(S) PO QAM 06/08/201809/05 Inactive potassium chloride ER 20 mEq tablet,extended release(p art/cryst) RxNorm: 0910392 1 TABLET(S) PO QD 06/08/2018 09/05/2018 Inactive metformin ER 1,000 mg tablet,extended release 24hr RxNorm: 1 472214 TAKE TWO TABLETS (1000MG) BY MOUTH TWO TIMES A DAY 06/01/2018 11/27/2018 Inacti ve Benicar HCT 40 mg-25 mg tablet RxNorm: 363466 TAKE ONE TABLET BY MOUTH ONCE DAILY 05/11/2018 03/28/2019 Inactive Zocor 40 mg tablet RxNorm: 253340 TAKE ONE TABLET BY M OUTH EVERY NIGHT AT BEDTIME 05/11/2018 06/20/2019 Inactive Trelegy Ellipta 100 mcg-62.5 mcg-25 mcg powder for inhalatio n RxNorm: 5393862 1 PUFF(S) INH QD 04/06/2018 07/04/2018 Inactive diltiazem ER 360 mg capsule,24 hr,extended release RxNorm: 8 69168 1 Capsule(s) PO QHS replaces 300mg dose 03/30/2018 09/25/2018 Inactive Trelegy Ellipta 100 mcg-62.5 mcg-25 mcg powder for inhalatio n RxNorm: 4499465 1 Puff(s) INH QD 02/24/2018 02/23/2018 Inactive Trelegy Ellipta 100 mcg-62.5 mcg-25 mcg powder for inhalatio n RxNorm: 1496725 1 Puff(s) INH QD 02/24/2018 02/23/2018 Inactive Trelegy Ellipta 100 mcg-62.5 mcg-25 mcg powder for inhalatio n RxNorm: 3432036 1 Puff(s) INH QD 02/24/2018 04/05/2018 Inactive Lasix 40 mg tablet RxNorm: 196187 1 Tablet(s) PO QAM 02/10/201803/11 Inactive potassium chloride ER 20 mEq tablet,extended release(p art/cryst) RxNorm: 6469698 1 Tablet(s) PO QD 02/10/2018 03/11/2018 Inactive fenofibrate micronized 134 mg capsule RxNorm: 140955 1 Capsule( s) PO QD 01/30/2018 07/28/2018 Inactive metoprolol succinate ER 100 mg tablet,extended release 24 hr RxNorm: 967814 TAKE ONE TABLET BY MOUTH TWICE A DAY 12/30/2017 09/25/2018 Inactive metformin ER 1,000 mg tablet,extended release 24hr RxNorm: 1 985532 1 Tablet(s) PO BID 11/17/2017 05/15/2018 Inactive [SAVINGS FOR NON -COVERED DRUGS -- BIN:837405, PCN: ASPROD1, Group: XXXXX, ID# [id number], Questions: . THIS IS NOT INSURANCE.] Benicar HCT 40 mg-25 mg tablet RxNorm: 408971 1 Tablet(s) PO QD 05/10/2018 Inactive [SAVINGS FOR NON-COVERED JESU GS -- BIN:478932, PCN: ASPROD1, Group: XXXXX, ID# [id number], Questions: . THIS IS NOT INSURANCE.] Bactroban 2 % topical cream RxNorm: 288788 Application TOP BID 10/2409/02/2018 Inactive clindamycin HCl 300 mg capsule RxNorm: 214145 2 Capsule(s) PO TID 0 11/05/2017 11/18/2017 Inactive duloxetine 60 mg capsule,delayed release RxNorm: 018087 Capsule(s) TAKE ONE CAPSULE BY MOUTH ONCE DAILY 09/24/2017 09/23/2017 Inactive triamcinolone acetonide 0.1 % topical ointment RxNorm: 1314017 1 TOP BID 09/09/2017 11/04/2017 Inactive Bactrim DS 800 mg-160 mg tablet RxNorm: 422722 1 Tablet(s) PO BID 0 08/07/2017 08/13/2017 Inactive metronidazole 500 mg tablet RxNorm: 573226 1 Tablet(s) PO BID 08/0708/13/2017 Inactive diltiazem ER 360 mg capsule,24 hr,extended release RxNorm: 8 75026 1 Capsule(s) PO QHS replaces 300mg dose 08/04/2017 01/30/2018 Inactive fenofibrate micronized 134 mg capsule RxNorm: 362683 1 Capsule( s) PO QD 07/21/2017 01/30/2018 Inactive Zocor 40 mg tablet RxNorm: 887216 1 Tablet(s) PO QHS 07/21/201705/10 Inactive GB duloxetine 60 mg capsule,delayed release RxNorm: 509413 Capsule(s) TAKE ONE CAPSULE BY MOUTH ONCE DAILY 06/24/2017 09/24/2017 Inactive Cleocin HCl 300 mg capsule RxNorm: 704747 2 Capsule(s) PO BID 06/0206/08/2017 Inactive acyclovir 800 mg tablet RxNorm: 413071 1 Tablet(s) PO 5x day 201706/08/2017 Inactive diltiazem ER 300 mg capsule,24 hr,extended release RxNorm: 8 49169 1 Capsule(s) PO QHS replaces 240mg dose 05/05/2017 08/03/2017 Inactive ipratropium-albuterol 0.5 mg-3 mg(2.5 mg base)/3 mL ne bulization soln RxNorm: 6501819 1 Unit Dose INH Q4H as needed 05/05/2017 01/04/2019 Inactive metformin ER 1,000 mg tablet,extended release 24hr RxNorm: 1 140679 1 Tablet(s) PO BID 04/28/2017 11/17/2017 Inactive [SAVINGS FOR NON -COVERED DRUGS -- BIN:461327, PCN: ASPROD1, Group: XXXXX, ID# [id number], Questions: . THIS IS NOT INSURANCE.] diltiazem ER (XR/XT) 240 mg capsule,extended release 2 4 hr, controlled RxNorm: 121560 TAKE ONE CAPSULE BY MOUTH EVERY DAY 04/15/2017 05/04/2017 Inact avani prednisone 20 mg tablet RxNorm: 783386 1 Tablet(s) PO QD 04/10/2017 1 06/14/2016 Inactive Breo Ellipta 200 mcg-25 mcg/dose powder for inhalation RxNor m: 5330905 1 Puff(s) INH QD 04/10/2017 02/09/2018 Inactive Breo Ellipta 200 mcg-25 mcg/dose powder for inhalation RxNor m: 0635313 1 Puff(s) INH QD 04/10/2017 04/09/2017 Inactive Levaquin 500 mg tablet RxNorm: 398975 1 Tablet(s) PO QD 04/10/2017 Inactive metoprolol succinate ER 100 mg tablet,extended release 24 hr RxNorm: 778237 TAKE ONE TABLET BY MOUTH TWICE A DAY 03/24/2017 12/18/2017 Inactive fenofibrate micronized 134 mg capsule RxNorm: 519585 1 Capsule( s) PO QD 01/16/2017 07/21/2017 Inactive Benicar HCT 40 mg-25 mg tablet RxNorm: 318751 1 Tablet(s) PO QD 11/17/2017 Inactive [SAVINGS FOR NON-COVERED JESU GS -- BIN:059827, PCN: ASPROD1, Group: XXXXX, ID# [id number], Questions: . THIS IS NOT INSURANCE.] metoprolol succinate ER 100 mg tablet,extended release 24 hr RxNorm: 094218 1 Tablet(s) PO BID 10/16/2016 03/23/2017 Inactive diltiazem ER (XR/XT) 240 mg capsule,extended release 2 4 hr, controlled RxNorm: 200220 1 Capsule(s) PO QD 10/16/2016 04/13/2017 Inactive [SAVINGS FOR NON- COVERED DRUGS -- BIN:975508, PCN: ASPROD1, Group: XXXXX, ID# [id number], Questions: . THIS IS NOT INSURANCE.] metformin ER 1,000 mg tablet,extended release 24hr RxNorm: 8 19001 1 Tablet(s) PO BID 10/16/2016 04/28/2017 Inactive [SAVINGS FOR NON -COVERED DRUGS -- BIN:040356, PCN: ASPROD1, Group: XXXXX, ID# [id number], Questions: . THIS IS NOT INSURANCE.] Zocor 40 mg tablet RxNorm: 842161 1 Tablet(s) PO QHS 10/16/201607/21 Inactive GB Singulair 10 mg tablet RxNorm: 425908 Tablet(s) 1 TABLET(S) PO QHS 08/27/2016 09/02/2018 Inactive prednisone 20 mg tablet RxNorm: 085767 1 Tablet(s) PO QD 08/27/2016 0 08/31/2016 Inactive ipratropium-albuterol 0.5 mg-3 mg(2.5 mg base)/3 mL ne bulization soln RxNorm: 5750279 1 Unit Dose INH Q4H as needed 08/27/2016 05/04/2017 Inactive metoprolol succinate ER 100 mg tablet,extended release 24 hr RxNorm: 249054 TAKE ONE TABLET BY MOUTH TWICE A DAY 08/05/2016 10/16/2016 Inactive duloxetine 60 mg capsule,delayed release RxNorm: 693067 TAKE ONE CAPSULE BY MOUTH ONCE DAILY 08/05/2016 06/24/2017 Inactive prednisone 20 mg tablet RxNorm: 384168 1 Tablet(s) PO QD 06/14/2016 0 06/18/2016 Inactive ipratropium-albuterol 0.5 mg-3 mg(2.5 mg base)/3 mL ne bulization soln RxNorm: 9090429 1 Unit Dose INH Q4H as needed 06/13/2016 08/26/2016 Inactive Levaquin 500 mg tablet RxNorm: 365116 1 Tablet(s) PO QD 06/13/2016 Inactive metoprolol succinate ER 100 mg tablet,extended release 24 hr RxNorm: 628983 1 Tablet(s) PO BID replaces 50mg dose 05/14/2016 07/12/2016 Inactive metoprolol succinate ER 50 mg tablet,extended release 24 hr RxNorm: 832590 1 Tablet(s) PO BID 04/29/2016 05/13/2016 Inactive prednisone 20 mg tablet RxNorm: 085188 1 Tablet(s) PO BID 04/22/2016 04/21/2016 Inactive prednisone 20 mg tablet RxNorm: 379806 1 Tablet(s) PO BID 04/22/2016 04/28/2016 Inactive Singulair 10 mg tablet RxNorm: 845400 Tablet(s) 1 TABLET(S) PO QHS 04/01/2016 08/26/2016 Inactive metoprolol succinate ER 25 mg tablet,extended release 24 hr RxNorm: 396424 1 Tablet(s) PO QHS for blood pressure 04/01/2016 05/13/2016 Inactive fenofibrate micronized 134 mg capsule RxNorm: 470271 TA KE ONE CAPSULE BY MOUTH DAILY 01/25/2016 01/16/2017 Inactive duloxetine 60 mg capsule,delayed release RxNorm: 165911 TAKE ONE CAPSULE BY MOUTH ONCE DAILY 01/25/2016 08/04/2016 Inactive Zocor 40 mg tablet RxNorm: 208082 TAKE ONE TABLET BY MOUTH AT B EDTIME 11/13/2015 10/16/2016 Inactive GB metformin ER 1,000 mg tablet,extended release 24hr RxNorm: 8 24359 1 Tablet(s) PO BID 10/26/2015 10/16/2016 Inactive [SAVINGS FOR NON -COVERED DRUGS -- BIN:474196, PCN: ASPROD1, Group: XXXXX, ID# [id number], Questions: . THIS IS NOT INSURANCE.] Benicar HCT 40 mg-25 mg tablet RxNorm: 303162 1 Tablet(s) PO QD 06/201511/11/2016 Inactive [SAVINGS FOR NON-COVERED JESU GS -- BIN:548047, PCN: ASPROD1, Group: XXXXX, ID# XXXXXXX, Questions: . THIS IS NOT INSURANCE.] diltiazem ER (XR/XT) 240 mg capsule,extended release,control led RxNorm: 225466 1 Capsule(s) PO QD 10/26/2015 10/15/2016 Inactive [SAVINGS FOR NO N-COVERED DRUGS -- BIN:673899, PCN: ASPROD1, Group: XXXXX, ID# [id number], Questions: . THIS IS NOT INSURANCE.] Singulair 10 mg tablet RxNorm: 890877 1 TABLET(S) PO QHS 09/18/2015 1 05/31/2015 Inactive Viagra 100 mg tablet RxNorm: 353293 1 Tablet(s) PO as needed 201511/23/2018 Inactive Singulair 10 mg tablet RxNorm: 639493 1 Tablet(s) PO QHS 08/16/2015 0 08/15/2015 Inactive Singulair 10 mg tablet RxNorm: 179224 1 Tablet(s) PO QHS 08/16/2015 0 09/14/2015 Inactive duloxetine 60 mg capsule,delayed release RxNorm: 549546 1 Capsule(s) PO QD replaces fluoxetine 08/14/2015 01/24/2016 Inactive ipratropium-albuterol 0.5 mg-3 mg(2.5 mg base)/3 mL ne bulization soln RxNorm: 6093097 1 Unit Dose INH Q4H as needed 08/14/2015 06/12/2016 Inactive prednisone 20 mg tablet RxNorm: 017971 Take 3 tabs PO o nce daily x 3 days, then 2 tabs PO once daily x 3 days and then 1 tab PO once daily x 3 days 08/09/2015 08/13/2015 Inactive Symbicort 160 mcg-4.5 mcg/actuation HFA aerosol inhaler RxNo rm: 2991002 2 Puff(s) INH BID 08/09/2015 08/13/2015 Inactive Zocor 40 mg tablet RxNorm: 798685 1 Tablet(s) PO QHS 05/23/201511/11 Inactive [AttnRPh: Saving apply/adjudicate RxGRP: SG20 RxBIN:[id number] RxPCN: ID#:[id number]] Benicar HCT 40 mg-25 mg tablet RxNorm: 272859 1 Tablet(s) PO QD 10/26/2015 Inactive [SAVINGS FOR NON-COVERED JESU GS -- BIN:273900, PCN: ASPROD1, Group: XXXXX, ID# XXXXXXX, Questions: . THIS IS NOT INSURANCE.] diltiazem ER (XR/XT) 240 mg capsule,extended release,control led RxNorm: 628537 1 Capsule(s) PO QD 04/24/2015 10/20/2015 Inactive [SAVINGS FOR NO N-COVERED DRUGS -- BIN:469754, PCN: ASPROD1, Group: XXXXX, ID# XXXXXXX, Questions: . THIS IS NOT INSURANCE.] fluoxetine 40 mg capsule RxNorm: 438525 1 Capsule(s) PO QD 04/24/20 15 08/13/2015 Inactive [SAVINGS FOR NON-COVERED JESU GS -- BIN:891240, PCN: ASPROD1, Group: XXXXX, ID# XXXXXXX, Questions: . THIS IS NOT INSURANCE.] Zocor 40 mg tablet RxNorm: 209760 TABLET(S) 1 TABLET(S) PO QHS 01/2505/23/2015 Inactive [AttnRPh: Saving apply/adjud icate RxGRP:SG20 RxBIN:[id number] RxPCN:HT ID#:[id number]] metformin ER 1,000 mg tablet,extended release 24hr RxNorm: 8 21940 1 TABLET(S) PO BID 01/29/2015 10/26/2015 Inactive [SAVINGS FOR NON -COVERED DRUGS -- BIN:028326, PCN: ASPROD1, Group: XXXXX, ID# XXXXXXX, Questions: . THIS IS NOT INSURANCE.] fenofibrate micronized 134 mg capsule RxNorm: 009994 1 CAPSULE( S) PO QD 01/23/2015 01/17/2016 Inactive fenofibrate micronized 134 mg capsule RxNorm: 390794 1 Capsule( s) PO QD 11/07/2014 01/22/2015 Inactive diltiazem ER (XR/XT) 240 mg capsule,extended release,control led RxNorm: 331347 1 Capsule(s) PO QD 10/24/2014 04/24/2015 Inactive [SAVINGS FOR NO N-COVERED DRUGS -- BIN:560156, PCN: ASPROD1, Group: XXXXX, ID# XXXXXXX, Questions: . THIS IS NOT INSURANCE.] Benicar HCT 40 mg-25 mg tablet RxNorm: 949037 1 Tablet(s) PO QD 05/201404/24/2015 Inactive [SAVINGS FOR NON-COVERED JESU GS -- BIN:491879, PCN: ASPROD1, Group: XXXXX, ID# XXXXXXX, Questions: . THIS IS NOT INSURANCE.] fluoxetine 40 mg capsule RxNorm: 837327 1 Capsule(s) PO QD 10/25/19 15 04/24/2015 Inactive [SAVINGS FOR NON-COVERED JESU GS -- BIN:611675, PCN: ASPROD1, Group: XXXXX, ID# XXXXXXX, Questions: . THIS IS NOT INSURANCE.] azithromycin 500 mg tablet RxNorm: 927235 1 Tablet(s) PO QD 015 09/27/2014 Inactive [SAVINGS FOR NON-COVERED JESU GS -- BIN:610438, PCN: ASPROD1, Group: XXXXX, ID# XXXXXXX, Questions: . THIS IS NOT INSURANCE.] albuterol sulfate 2.5 mg/3 mL (0.083 %) solution for n ebulization RxNorm: 382410 3 Milliliter(s) INH ONE VIAL VIA NEBULIZER EVERY 4 HOURS 015 11/19/2014 Inactive [AttnRPh: Saving apply/adjudicate RxGRP: SG20 RxBIN:[id number] RxPCN: ID#:[id number]] Zocor 40 mg tablet RxNorm: 762524 TABLET(S) 1 TABLET(S ) PO QHS 1 TABLET(S) PO QHS 09/04/2014 02/21/2015 Inactive [AttnRPh: Saving apply/adjudicate RxGRP:SG20 RxBIN:[id number] RxPCN: ID#:[id number]] metformin ER 1,000 mg tablet,extended release 24hr RxNorm: 8 98837 1 Tablet(s) PO BID 08/04/2014 01/28/2015 Inactive [SAVINGS FOR NON -COVERED DRUGS -- BIN:748924, PCN: ASPROD1, Group: XXXXX, ID# XXXXXXX, Questions: . THIS IS NOT INSURANCE.] Bromfed DM 2 mg-30 mg-10 mg/5 mL syrup RxNorm: 0354112 1 -2 Teaspoon(s) PO Q4H as needed for cough 06/10/2014 06/19/2014 Inactive [SAVINGS FOR UN INSURED PATIENTS -- BIN:049072, PCN: ASPROD1, Group: AME08, ID# [id number], Process claim through [employer], for questions: . THIS IS NOT INSURANCE.] Augmentin 875 mg-125 mg tablet RxNorm: 395078 1 Tablet(s) PO Q12H 0 06/10/2014 06/19/2014 Inactive [AttnRPh: Saving apply/adjud icate RxGRP:SG20 RxBIN:[id number] RxPCN: ID#:[id number]] Zocor 40 mg tablet RxNorm: 625693 Tablet(s) 1 TABLET(S ) PO QHS 1 TABLET(S) PO QHS 05/25/2014 08/22/2014 Inactive [AttnRPh: Saving apply/adjudicate RxGRP:SG20 RxBIN:[id number] RxPCN:HT ID#:[id number]] fluoxetine 40 mg capsule RxNorm: 059105 1 Capsule(s) PO QD 04/29/20 14 10/24/2014 Inactive [AttnRPh: Saving apply/adjud icate RxGRP:SG20 RxBIN:[id number] RxPCN:HT ID#:[id number]] diltiazem ER (XR/XT) 240 mg capsule,extended release,control led RxNorm: 262613 1 Capsule(s) PO QD 04/29/2014 10/24/2014 Inactive [AttnRPh: Savin g apply/adjudicate RxGRP:SG20 RxBIN:[id number] RxPCN:HT ID#:[id number]] Benicar HCT 40 mg-25 mg tablet RxNorm: 020476 1 Tablet(s) PO QD 09/201310/24/2014 Inactive [AttnRPh: Saving apply/adjud icate RxGRP:SG20 RxBIN:[id number] RxPCN:HT ID#:[id number]] Zocor 40 mg tablet RxNorm: 809460 1 TABLET(S) PO QHS 1 TABLET(S ) PO QHS 03/07/2014 05/25/2014 Inactive [AttnRPh: Saving chelsie ly/adjudicate RxGRP:SG20 RxBIN:[id number] RxPCN:HT ID#:[id number]] Zocor 40 mg tablet RxNorm: 558385 1 Tablet(s) PO QHS 1 TABLET(S ) PO QHS 12/06/2013 03/05/2014 Inactive [AttnRPh: Saving chelsie ly/adjudicate RxGRP:SG20 RxBIN:[id number] RxPCN:HT ID#:[id number]] diltiazem ER (XR/XT) 240 mg capsule,extended release,control led RxNorm: 569448 1 Capsule(s) PO QD 10/25/2013 04/22/2014 Inactive [AttnRPh: Leonelin g apply/adjudicate RxGRP:SG20 RxBIN:[id number] RxPCN:HT ID#:[id number]] fluoxetine 40 mg capsule RxNorm: 801491 1 Capsule(s) PO QD 10/26/1904/22/2014 Inactive [AttnRPh: Saving apply/adjud icate RxGRP:SG20 RxBIN:[id number] RxPCN:HT ID#:[id number]] Zocor 40 mg tablet RxNorm: 599777 1 Tablet(s) PO QHS 1 TABLET(S ) PO QHS 09/13/2013 12/06/2013 Inactive metformin ER 1,000 mg tablet,extended release 24hr RxNorm: 8 46678 Tablet(s) PO TAKE 1 TABLET BY MOUTH TWICE DAILY (REPLACES 500MG DOSE) 07/26/201303/2015 Inactive diltiazem ER (XR/XT) 240 mg capsule,extended release,control led RxNorm: 742614 1 Capsule(s) PO QD 05/03/2013 10/25/2013 Inactive fluoxetine 40 mg capsule RxNorm: 240293 1 Capsule(s) PO QD 05/03/2010/25/2013 Inactive Benicar HCT 40 mg-25 mg tablet RxNorm: 330408 1 Tablet(s) PO QD 01/201304/29/2014 Inactive Zocor 40 mg tablet RxNorm: 215702 1 Tablet(s) PO QHS 12/10/201209/13 Inactive fluoxetine 40 mg capsule RxNorm: 627961 1 Capsule(s) PO QD 11/10/19 13 05/03/2013 Inactive diltiazem ER (XR/XT) 240 mg capsule,extended release,control led RxNorm: 753074 1 Capsule(s) PO QD 11/09/2012 05/03/2013 Inactive Benicar HCT 40 mg-25 mg tablet RxNorm: 196168 1 Tablet(s) PO QD 05/03/2013 Inactive metformin ER 1,000 mg tablet,extended release 24hr RxNorm: 8 65444 Tablet(s) PO TAKE 1 TABLET BY MOUTH TWICE DAILY (REPLACES 500MG DOSE) 08/05/201206/2013 Inactive Zocor 40 mg tablet RxNorm: 418282 1 Tablet(s) PO QHS 06/15/201212/09 Inactive fluoxetine 40 mg capsule RxNorm: 652751 1 Capsule(s) PO QD 05/15/20 12 11/08/2012 Inactive Neurontin 600 mg Tab RxNorm: 639123 1 Tablet(s) PO QHS 12/03/2011 Inactive metformin ER 1,000 mg tablet,extended release 24hr RxNorm: 8 78631 1 Tablet(s) PO BID replaces 500mg dose 12/03/2011 07/26/2013 Inactive Zocor 40 mg tablet RxNorm: 559430 1 Tablet(s) PO QHS 12/03/201106/15 Inactive fluoxetine 20 mg capsule RxNorm: 829228 1 Capsule(s) PO QD 12/03/19 12 05/24/2012 Inactive diltiazem ER (XR/XT) 240 mg capsule,extended release,control led RxNorm: 274526 1 Capsule(s) PO QD 11/15/2011 11/09/2012 Inactive Benicar HCT 40 mg-25 mg tablet RxNorm: 963040 1 Tablet(s) PO QD 02/16/2012 Inactive metformin ER 500 mg 24 hr Tab RxNorm: 936825 1 Tablet(s) PO BID 12/02/2011 Inactive Zocor 40 mg Tab RxNorm: 535348 1 Tablet(s) PO QHS 05/30/2011 11/25/19 12 Inactive fluoxetine 20 mg Cap RxNorm: 024860 1 Capsule(s) PO QD 05/28/2011 Inactive Neurontin 600 mg Tab RxNorm: 101957 1 Tablet(s) PO QHS 05/28/2011 Inactive Neurontin 600 mg Tab RxNorm: 867827 1 Tablet(s) PO QHS 02/22/201106/2011 Inactive Neurontin 600 mg Tab RxNorm: 436237 1 Tablet(s) PO QHS 01/14/2011 Inactive Neurontin 300 mg Cap RxNorm: 005461 1 Capsule(s) PO QHS 01/14/2011 Inactive Neurontin 600 mg Tab RxNorm: 074248 1 Tablet(s) PO QHS 01/14/2011 Inactive Medrol (Vipul) 4 mg Tabs in a Dose Pack RxNorm: 128559 Tablet(s) PO 0 01/02/2011 08/28/2011 Inactive as directed fluoxetine 20 mg Cap RxNorm: 101122 1 Capsule(s) PO QD 12/10/201006/2011 Inactive Zocor 40 mg Tab RxNorm: 414423 1 Tablet(s) PO QHS 12/03/2010 05/29/19 12 Inactive Neurontin 300 mg Cap RxNorm: 566212 1 Capsule(s) PO QHS 12/03/2010 Inactive Septra DS 800 mg-160 mg Tab RxNorm: 280790 1 Tablet(s) PO BID 11/2912/08/2010 Inactive diltiazem ER (XR/XT) 240 mg Continuous Release Cap RxNorm: 8 91319 1 Capsule(s) PO QD 11/20/2010 11/15/2011 Inactive Neurontin 300 mg Cap RxNorm: 087577 1 Capsule(s) PO QHS 11/06/2010 Inactive Neurontin 300 mg Cap RxNorm: 175678 1 Capsule(s) PO QHS 11/06/2010 Inactive Celebrex 200 mg Cap RxNorm: 540774 1 Capsule(s) PO BID 10/24/2010 Inactive fluoxetine 20 mg Cap RxNorm: 911753 1 Capsule(s) PO QD 06/07/201003/2011 Inactive Zocor 40 mg Tab RxNorm: 337438 1 Tablet(s) PO QHS 06/05/2010 12/02/19 11 Inactive Benicar HCT 40 mg-25 mg Tab RxNorm: 169500 1 Tablet(s) PO QD 200908/21/2011 Inactive Diltiazem 240 mg Continuous Release Cap RxNorm: 072340 1 Capsul e(s) PO QD 11/09/2009 09/02/2018 Inactive Avelox 400 mg Tab RxNorm: 990417 1 Tablet(s) PO QD 08/22/2009 010 Inactive ProAir HFA 90 mcg/actuation aerosol inhaler RxNorm: 285047 2 Puff(s) INH Q4H as needed No Start Date Active tramadol 50 mg tablet RxNorm: 537170 1-2 Tablet(s) PO TID as ne eded for pain No Start Date Active Tylenol Arthritis 650 mg Tab RxNorm: 6640351 2 Tablet(s) PO QD No Sta rt Date Active Celebrex 200 mg Cap RxNorm: 707082 1 Capsule(s) PO BID No Start Date 08/08/2015 Inactive Medrol (Vipul) 4 mg Tabs in a Dose Pack RxNorm: 998502 Tablet(s) PO N o Start Date 01/01/2011 Inactive as directed Promethazine-DM 6.25 mg-15 mg/5 mL Syrup RxNorm: 810680 1-2 Teaspoon(s) PO Q4H prn cough No Start Date 08/28/2011 Inactive Claritin 10 mg tablet RxNorm: 111746 1 Tablet(s) PO QD No Start Date 08/08/2015 Inactive Zzabwaiiga-Whnfa-OXV-James-115HC Oral RxNorm: Oral No Start Da te 03/28/2019 Inactive Breo Ellipta 200 mcg-25 mcg/dose powder for inhalation RxNor m: 2556130 1 Puff(s) INH QD No Start Date 04/09/2017 Inactive metformin 500 mg Tab RxNorm: 004541 1 Tablet(s) PO QD No Start Date 0 08/17/2011 Inactive Diltiazem 240 mg Continuous Release Cap RxNorm: 645605 1 Capsul e(s) PO BID No Start Date 11/08/2009 Inactive fluoxetine 20 mg Cap RxNorm: 834431 1 Capsule(s) PO QD No Start Date 06/07/2010 Inactive Multivitamin & Mineral Formula Oral RxNorm: Oral No Start Da te 03/28/2019 Inactive Medrol (Vipul) 4 mg tablets in a dose pack RxNorm: 728933 Tablet(s) PO as directed No Start Date 05/28/2012 Inactive Fish Oil 1,000 mg Cap RxNorm: 1 Capsule(s) PO QD No Start Date 07/2018 Inactive Nexium 40 mg Cap RxNorm: 181201 1 Capsule(s) PO QD No Start Date 07/24 Inactive fluticasone 50 mcg/actuation nasal spray,suspension RxNorm: 9849614 2 [place] NASAL QD to each nostril No Start Date 08/03/2017 Inactive Viagra 100 mg tablet RxNorm: 212197 1 Tablet(s) PO as needed No Sta rt Date 09/17/2015 Inactive prednisone 20 mg tablet RxNorm: 472695 1 Tablet(s) PO B ID for 4 days then 1 po daily for 4 days No Start Date 11/23/2018 Inactive Benicar HCT 40 mg-25 mg Tab RxNorm: 185653 1 Tablet(s) PO QD No Sta rt [...] Date S ervice Location MICROALBUMIN URINE RANDOM 35386 MICRL MG/L 5.8 MG/L 03/2011 Unknown MICROALBUMIN URINE RANDOM 19899 XM.ALB/CRE 5.2 MG/GCR Unknown MICROALBUMIN URINE RANDOM 67563 CREAT MG/D 111 MG/DL 03/2011 Unknown MICROALBUMIN URINE RANDOM 17113 CRE/100 1.11 G/L 12/24 Unknown Procedures Procedure Codes Date FLU VACC PRSV FREE INC ANTIG 65 AND OLDER CPT-4: 21900 03/04/2019 ADMIN PNEUMOCOCCAL VACCINE CPT-4: G0009 03/04/2019 ADMIN INFLUENZA VIRUS VAC CPT-4: G0008 03/04/2019 FLU VACC PRSV FREE INC ANTIG 65 AND OLDER CPT-4: 13429 03/04/2019 PNEUMOCOCCAL VACC 23 [facility] IM CPT-4: 71714 03/04/2019 THER/PROPH/DIAG INJ SC/IM CPT-4: 53533 08/11/2018 TRIAMCINOLONE ACET INJ NOS CPT-4: J3301 08/11/2018 DEXAMETHASONE SODIUM PHOS CPT-4: J1100 08/11/2018 THER/PROPH/DIAG INJ SC/IM CPT-4: 93579 07/16/2018 METHYLPREDNISOLONE INJECTION CPT-4: J2930 07/16/2018 INFLUENZA ASSAY W/OPTIC CPT-4: 76340 07/16/2018 THER/PROPH/DIAG INJ SC/IM CPT-4: 81887 07/13/2018 TRIAMCINOLONE ACET INJ NOS CPT-4: J3301 07/13/2018 THER/PROPH/DIAG INJ SC/IM CPT-4: 66334 05/04/2018 METHYLPREDNISOLONE INJECTION CPT-4: J2930 05/04/2018 FLU VACC PRSV FREE INC ANTIG 65 AND OLDER CPT-4: 20573 02/10/2018 PNEUMOCOCCAL VACC 13 [facility] IM CPT-4: 16922 02/10/2018 ADMIN INFLUENZA VIRUS VAC CPT-4: G0008 02/10/2018 ADMIN PNEUMOCOCCAL VACCINE CPT-4: G0009 02/10/2018 THER/PROPH/DIAG INJ SC/IM CPT-4: 58957 09/09/2017 TRIAMCINOLONE ACET INJ NOS CPT-4: J3301 09/09/2017 ALBUTEROL NON-COMP UNIT CPT-4: J7613 04/10/2017 AIRWAY INHALATION TREATMENT CPT-4: 83034 04/10/2017 PRESCRIP TRANSMIT VIA ERX SY CPT-4: G8553 04/10/2017 FLU VACC PRSV FREE INC ANTIG 65 AND OLDER CPT-4: 82955 03/28/2017 ADMIN INFLUENZA VIRUS VAC CPT-4: G0008 03/28/2017 PRESCRIP TRANSMIT VIA ERX SY CPT-4: G8553 08/27/2016 PRESCRIP TRANSMIT VIA ERX SY CPT-4: G8553 06/14/2016 ALBUTEROL NON-COMP UNIT CPT-4: J7613 06/13/2016 AIRWAY INHALATION TREATMENT CPT-4: 15732 06/13/2016 PRESCRIP TRANSMIT VIA ERX SY CPT-4: [...] CPT-4: G8553 11/07/2014 THER/PROPH/DIAG INJ SC/IM CPT-4: 26512 09/21/2014 METHYLPREDNISOLONE INJECTION CPT-4: J2930 09/21/2014 PRESCRIP TRANSMIT VIA ERX SY CPT-4: G8553 09/21/2014 PRESCRIP TRANSMIT VIA ERX SY CPT-4: G8553 06/10/2014 URINALYSIS NONAUTO W/O SCOPE CPT-4: 88229 06/01/2012 PRESCRIP TRANSMIT VIA ERX SY CPT-4: G8553 05/25/2012 PRESCRIP TRANSMIT VIA ERX SY CPT-4: G8553 12/03/2011 CUR TOBACCO NON-USER CPT-4: G8457 05/30/2011 PRESCRIP TRANSMIT VIA ERX SY CPT-4: G8553 05/30/2011 URINALYSIS NONAUTO W/O SCOPE CPT-4: 44467 01/01/2011 URINE CULTURE/ COLONY COUNT CPT-4: 96316 01/01/2011 CUR TOBACCO NON-USER CPT-4: G8457 01/01/2011 [...] 1: 114/68 Code: 8480-6 BMI: 43.5 Code: 70484-0 Heart Rate 1: 52 bpm Height: 6'1" [...] 1: 136/72 Code: 8480-6 BMI: 42.7 Code: 43918-1 Heart Rate 1: 60 bpm Height: 6'1" Respiratory Rate: 22 bpm SpO2: 95% Tempera ture: 37.1 (C) / 98.7 (F) Weight: 324 lbs 02/10/2018 Blood Pressure 1: 146/78 Code: 8480-6 BMI: 42.4 Code: 16130-2 Heart Rate 1: 64 bpm Height: 6'1" Respiratory Rate: 22 bpm SpO2: 95% Tempera ture: 36.5 (C) / 97.7 (F) Weight: 321 lbs 11/05/2017 Blood Pressure 1: 128/84 Code: 8480-6 BMI: 42.9 Code: 11092-5 Heart Rate 1: 52 bpm Height: 6'1" Respiratory Rate: 22 bpm SpO2: 95% Tempera ture: 36.3 (C) / 97.3 (F) Weight: 325 lbs 09/09/2017 Blood Pressure 1: 162/90 Code: 8480-6 BMI: 42.5 Code: 53283-8 Heart Rate 1: 60 bpm Height: 6'1" Respiratory Rate: 24 bpm SpO2: 95% Tempera ture: 36.4 (C) / 97.6 (F) Weight: 322 lbs 08/07/2017 Blood Pressure 1: 152/90 Code: 8480-6 BMI: 42.2 Code: 55349-8 Heart Rate 1: 60 bpm Height: 6'1" Respiratory Rate: 26 bpm SpO2: 94% Tempera ture: 36.6 (C) / 97.8 (F) Weight: 320 lbs 08/04/2017 Blood Pressure 1: 150/86 Code: 8480-6 BMI: 42.7 Code: 86763-9 Heart Rate 1: 64 bpm Height: 6'1" Respiratory Rate: 20 bpm SpO2: 94% Tempera ture: 36.3 (C) / 97.3 (F) Weight: 324 lbs 06/04/2017 Blood Pressure 1: 164/90 Code: 8480-6 Heart Rate 1: 60 bpm Respiratory Rate: 24 bpm SpO2: 94% Temperature: 36.8 (C) / 98.3 (F) 06/02/2017 Blood Pressure 1: 162/80 Code: 8480-6 BMI: 42.9 Code: 43740-6 Heart Rate 1: 66 bpm Height: 6'1" Respiratory Rate: 22 bpm SpO2: 98% Tempera ture: 36.6 (C) / 97.8 (F) Weight: 325 lbs 05/05/2017 Blood Pressure 1: 164/94 Code: 8480-6 BMI: 41.4 Code: 54512-8 Heart Rate 1: 64 bpm Height: 6'1" Respiratory Rate: 22 bpm SpO2: 95% Tempera ture: 36.4 (C) / 97.5 (F) Weight: 314 lbs 04/10/2017 Blood Pressure 1: 136/78 Code: 8480-6 BMI: 42.0 Code: 33809-4 Heart Rate 1: 76 bpm Height: 6'1" Respiratory Rate: 24 bpm SpO2: 92% Tempera ture: 35.9 (C) / 96.7 (F) Weight: 318 lbs 02/03/2017 Blood Pressure 1: 134/82 Code: 8480-6 BMI: 41.7 Code: 41304-6 Heart Rate 1: 72 bpm Height: 6'1" Respiratory Rate: 24 bpm SpO2: 95% Tempera ture: 36.1 (C) / 97.0 (F) Weight: 316 lbs 10/30/2016 Blood Pressure 1: 126/74 Code: 8480-6 BMI: 41.3 Code: 34949-0 Heart Rate 1: 68 bpm Height: 6'1" Respiratory Rate: 20 bpm Temperature: 37 .1 (C) / 98.8 (F) Weight: 313 lbs 08/30/2016 Blood Pressure 1: 146/80 Code: 8480-6 BMI: 41.7 Code: 95024-2 Heart Rate 1: 64 bpm Height: 6'1" Respiratory Rate: 24 bpm SpO2: 94% Tempera ture: 36.6 (C) / 97.8 (F) Weight: 316 lbs 08/27/2016 Blood Pressure 1: 124/78 Code: 8480-6 Heart Rate 1: 66 bpm Height: 6'2" Respiratory Rate: 18 bpm SpO2: 94% Temperature: 36.6 (C) / 97.8 (F) Weight: 07/02/2016 Blood Pressure 1: 126/78 Code: 8480-6 BMI: 41.4 Code: 49242-7 Heart Rate 1: 68 bpm Height: 6'1" Respiratory Rate: 24 bpm SpO2: 94% Tempera ture: 36.6 (C) / 97.8 (F) Weight: 314 lbs 06/14/2016 Blood Pressure 1: 146/82 Code: 8480-6 Heart Rate 1: 80 bpm Respiratory Rate: 20 bpm SpO2: 95% Temperature: 37.3 (C) / 99.2 (F) 06/13/2016 Blood Pressure 1: 146/84 Code: 8480-6 BMI: 40.5 Code: 07318-1 Heart Rate 1: 66 bpm Height: 6'1" Respiratory Rate: 28 bpm SpO2: 93% Tempera ture: 35.8 (C) / 96.4 (F) Weight: 307 lbs 05/14/2016 Blood Pressure 1: 146/90 Code: 8480-6 BMI: 41.2 Code: 96079-0 Heart Rate 1: 68 bpm Height: 6'1" Respiratory Rate: 26 bpm Temperature: 36 .8 (C) / 98.2 (F) Weight: 312 lbs 04/29/2016 Blood Pressure 1: 152/90 Code: 8480-6 BMI: 41.0 Code: 55986-2 Heart Rate 1: 68 bpm Height: 6'1" Respiratory Rate: 26 bpm SpO2: 94% Tempera ture: 36.1 (C) / 96.9 (F) Weight: 311 lbs 04/22/2016 Blood Pressure 1: 152/94 Code: 8480-6 BMI: 40.9 Code: 17396-5 Heart Rate 1: 68 bpm Height: 6'1" Respiratory Rate: 24 bpm SpO2: 94% Tempera ture: 36.2 (C) / 97.2 (F) Weight: 310 lbs 04/01/2016 Blood Pressure 1: 156/78 Code: 8480-6 BMI: 40.6 Code: 84718-5 Heart Rate 1: 84 bpm Height: 6'1" Respiratory Rate: 22 bpm SpO2: 95% Tempera ture: 37.1 (C) / 98.7 (F) Weight: 308 lbs 11/30/2015 Blood Pressure 1: 142/80 Code: 8480-6 BMI: 40.5 Code: 22608-3 Heart Rate 1: 88 bpm Height: 6'1" Respiratory Rate: 22 bpm Temperature: 36 .2 (C) / 97.2 (F) Weight: 307 lbs 08/29/2015 Blood Pressure 1: 132/70 Code: 8480-6 BMI: 40.0 Code: 54381-2 Heart Rate 1: 76 bpm Height: 6'1" Respiratory Rate: 24 bpm SpO2: 96% Tempera ture: 36.7 (C) / 98.0 (F) Weight: 303 lbs 08/14/2015 Blood Pressure 1: 126/80 Code: 8480-6 BMI: 39.4 Code: 30981-4 Heart Rate 1: 92 bpm Height: 6'1" Respiratory Rate: 24 bpm SpO2: 94% Tempera ture: 37.8 (C) / 100.0 (F) Weight: 299 lbs 08/09/2015 Blood Pressure 1: 146/82 Code: 8480-6 Heart Rate 1: 82 bpm Respiratory Rate: 22 bpm SpO2: 93% Temperature: 35.9 (C) / 96.6 (F) We ight: 310 lbs 05/22/2015 Blood Pressure 1: 156/76 Code: 8480-6 BMI: 41.0 Code: 33355-2 Heart Rate 1: 100 bpm Height: 6'1" Respiratory Rate: 22 bpm Temperature: 37 .2 (C) / 98.9 (F) Weight: 311 lbs 02/13/2015 Blood Pressure 1: 166/90 Code: 8480-6 BMI: 41.2 Code: 36487-2 Heart Rate 1: 72 bpm Height: 6'1" Respiratory Rate: 24 bpm SpO2: 93% Tempera ture: 36.9 (C) / 98.5 (F) Weight: 312 lbs 11/07/2014 Blood Pressure 1: 134/70 Code: 8480-6 BMI: 40.5 Code: 89599-8 Heart Rate 1: 76 bpm Height: 6'1" Respiratory Rate: 24 bpm Temperature: 36 .9 (C) / 98.4 (F) Weight: 307 lbs 10/04/2014 Blood Pressure 1: 144/86 Code: 8480-6 BMI: 40.1 Code: 45086-3 Heart Rate 1: 76 bpm Height: 6'1" Respiratory Rate: 28 bpm Temperature: 36 .6 (C) / 97.9 (F) Weight: 304 lbs 09/22/2014 Blood Pressure 1: 142/80 Code: 8480-6 BMI: 40.0 Code: 27908-8 Heart Rate 1: 80 bpm Height: 6'1" Respiratory Rate: 22 bpm SpO2: 96% Tempera ture: 36.6 (C) / 97.8 (F) Weight: 303 lbs 09/21/2014 Blood Pressure 1: 160/66 Code: 8480-6 BMI: 40.0 Code: 16499-6 Heart Rate 1: 90 bpm Height: 6'1" Respiratory Rate: 26 bpm SpO2: 94% Tempera ture: 35.7 (C) / 96.2 (F) Weight: 303 lbs 06/28/2014 Blood Pressure 1: 132/80 Code: 8480-6 BMI: 41.0 Code: 98228-5 Heart Rate 1: 64 bpm Height: 6' Respiratory Rate: 20 bpm Temperature: 36 .7 (C) / 98.0 (F) Weight: 302 lbs 06/10/2014 Blood Pressure 1: 152/70 Code: 8480-6 BMI: 41.1 Code: 19299-8 Heart Rate 1: 76 bpm Height: 6' Respiratory Rate: 20 bpm Temperature: 36 .6 (C) / 97.8 (F) Weight: 303 lbs 03/29/2014 Blood Pressure 1: 132/78 Code: 8480-6 BMI: 40.6 Code: 20544-5 Heart Rate 1: 84 bpm Height: 6' Respiratory Rate: 22 bpm Temperature: 37 .1 (C) / 98.8 (F) Weight: 299 lbs 11/30/2013 Blood Pressure 1: 136/84 Code: 8480-6 BMI: 39.2 Code: 41948-4 Heart Rate 1: 76 bpm Height: 6' Respiratory Rate: 20 bpm Temperature: 36 .8 (C) / 98.2 (F) Weight: 289 lbs 08/03/2013 Blood Pressure 1: 144/80 Code: 8480-6 Heart Rate 1: 86 bpm Respiratory Rate: 20 bpm Temperature: 36.6 (C) / 97.8 (F) Weight: 296 lbs 04/06/2013 Blood Pressure 1: 142/90 Code: 8480-6 BMI: 40.3 Code: 92582-1 Heart Rate 1: 88 bpm Height: 6' Respiratory Rate: 20 bpm Temperature: 36 .6 (C) / 97.8 (F) Weight: 297 lbs 12/01/2012 Blood Pressure 1: 124/78 Code: 8480-6 BMI: 38.7 Code: 39192-9 Heart Rate 1: 76 bpm Height: 6' Respiratory Rate: 20 bpm Temperature: 37 .2 (C) / 98.9 (F) Weight: 285 lbs 08/04/2012 Blood Pressure 1: 128/80 Code: 8480-6 BMI: 38.2 Code: 37846-9 Heart Rate 1: 76 bpm Height: 6' Respiratory Rate: 20 bpm Temperature: 37 .0 (C) / 98.6 (F) Weight: 282 lbs 05/29/2012 Blood Pressure 1: 138/78 Code: 8480-6 BMI: 36.6 Code: 40372-0 Heart Rate 1: 66 bpm Height: 6' Temperature: 36.7 (C) / 98.1 (F) Weight: 270 lbs 05/25/2012 Blood Pressure 1: 128/72 Code: 8480-6 BMI: 39.9 Code: 67474-2 Heart Rate 1: 74 bpm Height: 6' Temperature: 36.1 (C) / 97.0 (F) Weight: 294 lbs 04/07/2012 Blood Pressure 1: 124/76 Code: 8480-6 BMI: 39.9 Code: 62475-1 Heart Rate 1: 72 bpm Height: 6' Respiratory Rate: 20 bpm Temperature: 36 .9 (C) / 98.5 (F) Weight: 294 lbs 12/16/2011 Blood Pressure 1: 128/80 Code: 8480-6 BMI: 40.8 Code: 44886-0 Heart Rate 1: 74 bpm Height: 6' Temperature: 36.6 (C) / 97.8 (F) Weight: 301 lbs 12/03/2011 Blood Pressure 1: 132/76 Code: 8480-6 BMI: 40.8 Code: 10677-3 Heart Rate 1: 68 bpm Height: 6' Respiratory Rate: 20 bpm Temperature: 36 .8 (C) / 98.2 (F) Weight: 301 lbs 08/29/2011 Blood Pressure 1: 140/68 Code: 8480-6 BMI: 40.8 Code: 52701-1 Heart Rate 1: 80 bpm Height: 6' Respiratory Rate: 20 bpm Temperature: 36 .4 (C) / 97.6 (F) Weight: 301 lbs 05/30/2011 Blood Pressure 1: 134/82 Code: 8480-6 BMI: 41.5 Code: 06376-7 Heart Rate 1: 76 bpm Height: 6' [...] 1: 126/72 Code: 8480-6 BMI: 41.2 Code: 84625-3 Heart Rate 1: 76 bpm Height: 6' [...] 1: 152/90 Code: 8480-6 BMI: 37.7 Code: 84896-0 Heart Rate 1: 92 bpm Height: 6'1" Temperature: 38.3 (C) / 101.0 (F) Weight : 286 lbs Functional Status No Functional Status data Reason For Visit Reason For Visit Effective Dates Notes follow up 08/30/2019 Discuss aleidaulair th erapy follow up 08/10/2019 cellulitis 07/06/2019 [...] mellitus with diabetic neuropathy, unspecified[ICD10: E11.40] Neela HYMAN [facility] CPT-4: 86940 12/01/2019 ([id number]) OFFICE/OUTPATIENT VISIT EST Diagnosis: Chronic obstructive pulmonary disease, unspecified[ICD10: J44.9] Diagnosis: Essential (primary) hypertension[ICD10: I10] Diagnosis: Mixed hyperlipidemia[ICD10: E78.2] Diagnosis: Type 2 diabetes mellitus with hyperglycemia[ICD10: E11.65] Neela HYMAN [facility] CPT-4: 80334 08/30/2019 ([id number]) OFFICE/OUTPATIENT VISIT EST Diagnosis: Chronic obstructive pulmonary disease with (acute) exacerbation[ICD10: J44.1] Neela HYMAN [facility] 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] Diagnosis: Tinea corporis[ICD10: B35.4] [facility] CPT-4: 79222 12/09/2018 ([id number]) OFFICE/OUTPATIENT VISIT EST Diagnosis: COUGH[ICD10: R05] Diagnosis: Chronic obstructive pulmonary disease, unspecified[ICD10: J44.9] Diagnosis: Other disorders of lung[ICD10: J98.4] Diagnosis: Other nonspecific abnormal finding of lung field[ICD10: R91.8] [facility] CPT-[facility]: 09232 11/24/2018 ([id number]) OFFICE/OUTPATIENT VISIT EST Diagnosis: Pneumonia, unspecified organism[ICD10: J18.9] Amita [place]MAN [place] [facility] CPT-4: 70816 09/16/2018 ([id number]) OFFICE/OUTPATIENT VISIT EST Diagnosis: Pneumonia, unspecified organism[ICD10: J18.9] Neela [facility]MAN [place] [facility] CPT-4: 00941 09/03/2018 ([id number]) OFFICE/OUTPATIENT VISIT EST Diagnosis: Personal history of pneumonia (recurrent)[ICD10: Z87.01] Diagnosis: Cough[ICD10: R05] Diagnosis: Essential (primary) hypertension[ICD10: I10] Diagnosis: Type 2 diabetes mellitus with hyperglycemia[ICD10: E11.65] Amita HYMAN [place] [facility] CPT-4: 81264 08/27/2018 OFFICE/OUTPATIENT VISIT EST Diagnosis: Pneumonia, unspecified organism[ICD10: J18.9] Diagnosis: Chronic obstructive pulmonary disease with (acute) exacerbation[ICD10: J44.1] Diagnosis: Other specified symptoms and signs involving the circulatory and respiratory systems[ICD10: R09.89] Diagnosis: Essential (primary) hypertension[ICD10: I10] Amita [facility]MAN [place] [facility] CPT-4: 47543 08/13/2018 OFFICE/OUTPATIENT VISIT EST Diagnosis: Pneumonia, unspecified organism[ICD10: J18.9] Diagnosis: Other specified symptoms and signs involving the circulatory and respiratory systems[ICD10: R09.89] Amitacalvin HYMAN [place] [facility] CPT-4: 25041 08/11/2018 ([id number]) OFFICE/OUTPATIENT VISIT EST Diagnosis: Dyspnea, unspecified[ICD10: R06.00] Diagnosis: Chronic obstructive pulmonary disease with (acute) exacerbation[ICD10: J44.1] Diagnosis: Pneumonia, unspecified organism[ICD10: J18.9] Amitacalvin HYMAN [place] [facility] CPT-4: 36898 07/16/2018 ([id number]) OFFICE/OUTPATIENT VISIT EST Diagnosis: Acute bronchitis due to other specified organisms[ICD10: J20.8] Diagnosis: Cough[ICD10: R05] Amita Santiago [place] [facility] T-4: 74100 07/13/2018 ([id number]) OFFICE/OUTPATIENT VISIT EST Diagnosis: Essential (primary) hypertension[ICD10: I10] Diagnosis: Chronic obstructive pulmonary disease, unspecified[ICD10: J44.9] Diagnosis: Type 2 diabetes mellitus with hyperglycemia[ICD10: E11.65] Diagnosis: Mixed hyperlipidemia[ICD10: E78.2] Neela Sergemelany FRIEND ASHER HYMAN [place] [facility] CPT-4: 79720 06/03/2018 ([id number]) OFFICE/OUTPATIENT VISIT EST Diagnosis: Chronic obstructive pulmonary disease, unspecified[ICD10: J44.9] Gely HYMAN [place] [facility] CPT-4: 96643 05/04/2018 ([id number]) OFFICE/OUTPATIENT VISIT EST Diagnosis: Essential (primary) hypertension[ICD10: I10] Diagnosis: Localized edema[ICD10: R60.0] Neela Yenni MIRZALINE Octavio HYMAN [place] [facility] CPT-4: 65906 03/03/2018 ([id number]) OFFICE/OUTPATIENT VISIT EST Diagnosis: Localized edema[ICD10: R60.0] Neela MIRZALINE Octavio HYMAN [place] [facility] CPT-4: 75177 02/17/2018 ([id number]) OFFICE/OUTPATIENT VISIT EST Diagnosis: FLU VACCINE[ICD10: Z23] Diagnosis: PNEUMOCOCCAL VACCINE[ICD10: Z23] Diagnosis: Type 2 diabetes mellitus without complications[ICD10: E11.9] Diagnosis: Mixed hyperlipidemia[ICD10: E78.2] Diagnosis: Essential (primary) hypertension[ICD10: I10] Diagnosis: Localized edema[ICD10: R60.0] Diagnosis: Chronic obstructive pulmonary disease, unspecified[ICD10: J44.9] Neela MIRZALINE Octavio HY[facility] [place] [facility] CPT-4: 98532 02/10/2018 ([id number]) OFFICE/OUTPATIENT VISIT EST Diagnosis: Type 2 diabetes mellitus with hyperglycemia[ICD10: E11.65] Diagnosis: Mixed hyperlipidemia[ICD10: E78.2] Diagnosis: Essential (primary) hypertension[ICD10: I10] Diagnosis: Chronic obstructive pulmonary disease, unspecified[ICD10: J44.9] Diagnosis: Cutaneous abscess of back [any part, except buttock][ICD10: L02.212] Neela HYMAN [place] [facility] CPT-4: 07848 11/05/2017 ([id number]) OFFICE/OUTPATIENT VISIT EST Diagnosis: Allergic urticaria[ICD10: L50.0] Gely HYMAN DO [facility] CPT-4: 69142 09/09/2017 ([id number]) OFFICE/OUTPATIENT VISIT EST Diagnosis: Generalized enlarged lymph nodes[ICD10: R59.1] Diagnosis: Acute gastritis without bleeding[ICD10: K29.00] Gely HYMAN DO [facility] CPT-4: 23272 08/07/2017 ([id number]) OFFICE/OUTPATIENT VISIT EST Diagnosis: Type 2 diabetes mellitus without complications[ICD10: E11.9] Diagnosis: Mixed hyperlipidemia[ICD10: E78.2] Diagnosis: Essential (primary) hypertension[ICD10: I10] Neela HYMAN [place] [facility] CPT-4: 53614 08/04/2017 ([id number]) OFFICE/OUTPATIENT VISIT EST Diagnosis: Zoster without complications[ICD10: B02.9] Diagnosis: Acute sialoadenitis[ICD10: K11.21] Gely HYMAN [place] [facility] CPT-4: 27453 06/04/2017 OFFICE/OUTPATIENT VISIT EST Diagnosis: Zoster without complications[ICD10: B02.9] Diagnosis: Acute sialoadenitis[ICD10: K11.21] Gely HYMAN [place] [facility] CPT-4: 24164 06/02/2017 ([id number]) OFFICE/OUTPATIENT VISIT EST Diagnosis: Type 2 diabetes mellitus without complications[ICD10: E11.9] Diagnosis: Mixed hyperlipidemia[ICD10: E78.2] Diagnosis: Essential (primary) hypertension[ICD10: I10] Diagnosis: Chronic obstructive pulmonary disease, unspecified[ICD10: J44.9] Neela HYMAN DO [facility] CPT-4: 34662 05/05/2017 OFFICE/OUTPATIENT VISIT EST Diagnosis: Chronic obstructive pulmonary disease with acute lower respiratory infection[ICD10: J44.0] Diagnosis: Impacted cerumen, bilateral[ICD10: H61.23] Gely HYMAN [facility] CPT-4: 07418 04/10/2017 ([id number]) OFFICE/OUTPATIENT VISIT EST Diagnosis: FLU VACCINE[ICD10: Z23] Neela [facility] CPT-4: 14323 03/28/2017 ([id number]) OFFICE/OUTPATIENT VISIT EST Diagnosis: Type 2 diabetes mellitus without complications[ICD10: E11.9] Diagnosis: Mixed hyperlipidemia[ICD10: E78.2] Diagnosis: Essential (primary) hypertension[ICD10: I10] Diagnosis: Chronic obstructive pulmonary disease, unspecified[ICD10: J44.9] Neela HYMAN [facility] CPT-4: 53920 02/03/2017 ([id number]) OFFICE/OUTPATIENT VISIT EST Diagnosis: Type 2 diabetes mellitus with hyperglycemia[ICD10: E11.65] Diagnosis: Mixed hyperlipidemia[ICD10: E78.2] Diagnosis: Essential (primary) hypertension[ICD10: I10] Diagnosis: Chronic obstructive pulmonary disease, unspecified[ICD10: J44.9] Neela HYMAN [place] [facility] CPT-4: 59318 10/30/2016 ([id number]) NO CHARGE Diagnosis: Acute bronchitis, unspecified[ICD10: J20.9] Sammi HYMAN [facility] CPT-4: 59626 08/30/2016 ([id number]) OFFICE/OUTPATIENT VISIT EST Diagnosis: Acute bronchitis, unspecified[ICD10: J20.9] Diagnosis: Other seasonal allergic rhinitis[ICD10: J30.2] Sammi HYMAN [facility] CPT-4: 99243 08/27/2016 ([id number]) OFFICE/OUTPATIENT VISIT EST Diagnosis: Type 2 diabetes mellitus without complications[ICD10: E11.9] Diagnosis: Mixed hyperlipidemia[ICD10: E78.2] Diagnosis: Essential (primary) hypertension[ICD10: I10] Neela HYMAN [facility] CPT-4: 50249 07/02/2016 ([id number]) OFFICE/OUTPATIENT VISIT EST Diagnosis: Acute bronchitis, unspecified[ICD10: J20.9] Sammi HYMAN [facility] CPT-4: 57764 06/14/2016 ([id number]) OFFICE/OUTPATIENT VISIT EST Diagnosis: Acute bronchitis, unspecified[ICD10: J20.9] Sammi HYMAN DO [facility] CPT-4: 86207 06/13/2016 ([id number]) OFFICE/OUTPATIENT VISIT EST Diagnosis: Essential (primary) hypertension[ICD10: I10] Neela HYMAN DO [facility] CPT-4: 46625 05/14/2016 ([id number]) OFFICE/OUTPATIENT VISIT EST Diagnosis: Essential (primary) hypertension[ICD10: I10] Neela HYMAN DO [facility] CPT-4: 03101 04/29/2016 ([id number]) OFFICE/OUTPATIENT VISIT EST Diagnosis: Unspecified abdominal pain[ICD10: R10.9] Diagnosis: Left lower quadrant pain[ICD10: R10.32] Diagnosis: Left upper quadrant pain[ICD10: R10.12] Diagnosis: Essential (primary) hypertension[ICD10: I10] Neela HYMAN DO [facility] CPT-4: 89932 04/22/2016 ([id number]) OFFICE/OUTPATIENT VISIT EST Diagnosis: Type 2 diabetes mellitus without complications[ICD10: E11.9] Diagnosis: Mixed hyperlipidemia[ICD10: E78.2] Diagnosis: Essential (primary) hypertension[ICD10: I10] Neela HYMAN DO [facility] CPT-4: 95673 04/01/2016 ([id number]) OFFICE/OUTPATIENT VISIT EST Diagnosis: Type 2 diabetes mellitus with hyperglycemia[ICD10: E11.65] Diagnosis: Mixed hyperlipidemia[ICD10: E78.2] Diagnosis: Essential (primary) hypertension[ICD10: I10] Neela HYMAN DO [facility] CPT-4: 15592 11/30/2015 ([id number]) OFFICE/OUTPATIENT VISIT EST Diagnosis: Type 2 diabetes mellitus with diabetic neuropathy, unspecified[ICD10: E11.40] Diagnosis: Essential (primary) hypertension[ICD10: I10] Diagnosis: Mixed hyperlipidemia[ICD10: E78.2] Neela STERLING Octavio HYMAN DO [facility] CPT-4: 31420 08/29/2015 ([id number]) OFFICE/OUTPATIENT VISIT EST Diagnosis: COUGH[ICD10: R05] Diagnosis: Wheezing[ICD10: R06.2] Diagnosis: Type 2 diabetes mellitus with diabetic neuropathy, unspecified[ICD10: E11.40] Neela MURILLO JulissaMendez YENNI ARTHUR [facility] CPT-4: 80282 08/14/2015 ([id number]) OFFICE/OUTPATIENT VISIT EST Diagnosis: Other seasonal allergic rhinitis[ICD10: J30.2] Diagnosis: Dyspnea, unspecified[ICD10: R06.00] Diagnosis: Wheezing[ICD10: R06.2] Sammi Najera NEELA Cunningham YENNI ARTHUR [facility] CPT-4: 08001 08/09/2015 ([id number]) OFFICE/OUTPATIENT VISIT EST Diagnosis: Essential (primary) hypertension[ICD10: I10] Diagnosis: Type 2 diabetes mellitus with hyperglycemia[ICD10: E11.65] Diagnosis: Mixed hyperlipidemia[ICD10: E78.2] Neela STERLING Octavio HYMAN [place] [facility] CPT-4: 21146 05/22/2015 ([id number]) OFFICE/OUTPATIENT VISIT EST Diagnosis: 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] Diagnosis: - I - HYPERTENSION[ICD9: 401.9] Diagnosis: - I - HYPERLIPIDEMIA NEC/NOS[ICD9: 272.4] Diagnosis: Left hand paresthesia[ICD9: 782.0] Neela STERLING Octavio HYMAN [place] [facility] CPT-4: 84062 02/13/2015 ([id number]) OFFICE/OUTPATIENT VISIT EST Diagnosis: HYPERLIPIDEMIA NEC/NOS[ICD9: 272.4] Diagnosis: 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] Neela MURILLO JulissaMendez YENNI [place] [facility] CPT-4: 84072 11/07/2014 ([id number]) OFFICE/OUTPATIENT VISIT EST Diagnosis: ALLERGIC RHINITIS[ICD9: 477.9] Diagnosis: WHEEZING[ICD9: 786.07] Neela BADILLO [facility] CPT-4: 35930 10/04/2014 ([id number]) OFFICE/OUTPATIENT VISIT EST Diagnosis: BRONCHITIS, ACUTE[ICD9: 466.0] Diagnosis: WHEEZING[ICD9: 786.07] Loren Duarte [facility] CPT-4: 26389 09/22/2014 ([id number]) OFFICE/OUTPATIENT VISIT EST Diagnosis: DYSPNEA[ICD9: 786.09] Diagnosis: WHEEZING[ICD9: 786.07] Diagnosis: Arrhythmia[ICD9: 427.9] Loren BUI [facility] CPT-4: 68231 09/21/2014 ([id number]) OFFICE/OUTPATIENT VISIT EST Diagnosis: 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, 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] Diagnosis: - I - HYPERLIPIDEMIA NEC/NOS[ICD9: 272.4] Diagnosis: - I - HYPERTENSION[ICD9: 401.9] Neela Cunningham [facility] CPT-4: 94398 06/28/2014 OFFICE/OUTPATIENT VISIT EST Diagnosis: SINUSITIS, ACUTE[ICD9: 461.9] Diagnosis: OTITIS MEDIA NOS[ICD9: 382.9] Sarah Cunningham [facility] CPT-4: 51176 06/10/2014 ([id number]) OFFICE/OUTPATIENT VISIT EST Diagnosis: 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] Diagnosis: - I - HYPERLIPIDEMIA NEC/NOS[ICD9: 272.4] Diagnosis: - I - HYPERTENSION[ICD9: 401.9] Neela Cunningham [facility] CPT-4: 05892 03/29/2014 ([id number]) OFFICE/OUTPATIENT VISIT EST Diagnosis: 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] Diagnosis: - I - HYPERTENSION[ICD9: 401.9] Diagnosis: - I - HYPERLIPIDEMIA NEC/NOS[ICD9: 272.4] Diagnosis: Hand lesion[ICD9: 709.9] Neela MURILLO JulissaMendez [facility] CPT-4: 95563 11/30/2013 ([id number]) OFFICE/OUTPATIENT VISIT EST Diagnosis: 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] Diagnosis: HYPERLIPIDEMIA NEC/NOS[ICD9: 272.4] Diagnosis: HYPERTENSION[ICD9: 401.9] Neela VASQUEZ [facility] CPT-4: 96893 08/03/2013 ([id number]) OFFICE/OUTPATIENT VISIT EST Diagnosis: 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, 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] Diagnosis: HYPERTENSION[ICD9: 401.9] Diagnosis: HYPERLIPIDEMIA NEC/NOS[ICD9: 272.4] Neela HYMAN [facility] CPT-4: 39914 04/06/2013 ([id number]) OFFICE/OUTPATIENT VISIT EST Diagnosis: 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] Diagnosis: HYPERLIPIDEMIA NEC/NOS[ICD9: 272.4] Diagnosis: HYPERTENSION[ICD9: 401.9] [facility]: 52379 12/01/2012 ([id number]) OFFICE/OUTPATIENT VISIT EST Diagnosis: 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] Diagnosis: HYPERTENSION[ICD9: 401.9] Diagnosis: HYPERLIPIDEMIA NEC/NOS[ICD9: 272.4] Neela HYMAN [facility] CPT-4: 58022 08/04/2012 ([id number]) OFFICE/OUTPATIENT VISIT EST Diagnosis: URINARY FREQUENCY[ICD9: 788.41] Neela Sergegemmainna HYMAN [facility] CPT-4: 57844 06/01/2012 OFFICE/OUTPATIENT VISIT EST Diagnosis: Agitation[ICD9: 307.9] Diagnosis: Frequent urination[ICD9: 788.41] Janet Jean Baptiste NEELA Octavio HYMAN [facility] CPT-4: 38259 05/29/2012 OFFICE/OUTPATIENT VISIT EST Diagnosis: SINUSITIS, ACUTE[ICD9: 461.9] Diagnosis: OTALGIA[ICD9: 388.70] Neela Sergegemmainna MIRZANEELA Octavio HYMAN [facility] CPT-4: 09701 05/25/2012 OFFICE/OUTPATIENT VISIT EST Diagnosis: 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, 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] Diagnosis: HYPERTENSION[ICD9: 401.9] Diagnosis: HYPERLIPIDEMIA NEC/NOS[ICD9: 272.4] Neela GREGORIO SMendez ORENDER DO [facility] CPT-4: 74438 04/07/2012 OFFICE/OUTPATIENT VISIT EST Diagnosis: FINGER INJURY[ICD9: 959.5] Janet Jean Baptiste NEELA Cunningham [facility] CPT-4: 11879 12/16/2011 ([id number]) OFFICE/OUTPATIENT VISIT EST Diagnosis: 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, 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] Diagnosis: HYPERTENSION[ICD9: 401.9] Diagnosis: HYPERLIPIDEMIA NEC/NOS[ICD9: 272.4] Neela GREGORIO SMendez [facility] CPT-4: 72597 12/03/2011 ([id number]) OFFICE/OUTPATIENT VISIT EST Diagnosis: 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] Diagnosis: HYPERLIPIDEMIA NEC/NOS[ICD9: 272.4] Diagnosis: HYPERTENSION[ICD9: 401.9] Neela Cunningham ORE NDER DO [facility] CPT-4: 13712 08/29/2011 OFFICE/OUTPATIENT VISIT EST Diagnosis: 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] Diagnosis: HYPERLIPIDEMIA NEC/NOS[ICD9: 272.4] Diagnosis: HYPERTENSION[ICD9: 401.9] Neela MURILLO SMendez ORE NDER DO [facility] CPT-4: 66317 05/30/2011 OFFICE/OUTPATIENT VISIT EST Diagnosis: SKIN SENSATION DISTURB[ICD9: 782.0] Neela GREGORIO SMendez ORENDER DO [facility] CPT-4: 02027 01/29/2011 OFFICE/OUTPATIENT VISIT EST Diagnosis: SKIN SENSATION DISTURB[ICD9: 782.0] Neela GREGORIO SMendez ORENDER DO [facility] CPT-4: 36903 01/14/2011 OFFICE/OUTPATIENT VISIT EST Neela MURILLO SMendez SERGE NDER DO [facility] CPT- 4: 09171 01/01/2011 OFFICE/OUTPATIENT VISIT EST Neela Cunningham ORE NDER [facility] CPT- 4: 43966 11/29/2010 ([id number]) OFFICE/OUTPATIENT VISIT [facility] CPT-4: 78434 08/28/2010 ([id number]) OFFICE/OUTPATIENT VISIT, EST [facility] CPT-4: 90053 06/05/2010 ([id number]) OFFICE/OUTPATIENT VISIT, EST Neela [facility] CPT-4: 05470 02/05/2010 ([id number]) OFFICE/OUTPATIENT VISIT, EST Neela [facility] CPT-4: 58505 10/09/2009 ([id number]) OFFICE/OUTPATIENT VISIT, [facility] CPT-4: 80712 08/22/2009 Plan of Care Planned Activity Notes [...] ICD-10 : E11.40 12/01/2019 Visit Diagnosis Plan: Chronic obstructive pulmonary di sease, unspecified Discussion: On oxygen/SVNS ICD-9 : 496 ICD-10 : J44.9 12/01/2019 Visit Diagnosis Plan: Essential hypertension Discussio n: Stable ICD-9 : 401.9 ICD-10 : I10 12/01/2019 Visit Diagnosis Plan: Type 2 diabetes mellitus with hy perglycemia Discussion: Lab tomorrow Accuchecks daily Continue current meds Check CMP and HbA1C in 3mos then fwup ICD-9 : 250.02 ICD-10 : E11.65 08/30/2019 Visit Diagnosis Plan: Chronic obstructive pulmonary di sease, unspecified Discussion: On continuous oxygen ICD-9 : 496 ICD-10 : J44.9 08/30/2019 Appointment: Neela Hyman [facility]Ptel[facility] [phone] [facility] FO[facility] UP 08/30/2019 Visit Diagnosis Plan: Chronic [...] : J44.1 08/10/2019 Appointment: Neela Hyman WPtel: [address] [place], [place] [phone] ACUTE ILLNESS 08/10/2019 Visit Diagnosis Plan: Sore on toe Discussion: Keep farhat an/dry Keflex Notify if worsens ICD-9 : 709.9 ICD-10 : L98.9 07/06/2019 Appointment: Neela Hyman WPtel: [address] [place] [address] ACUTE ILLNESS 07/06/2019 Patient Education: Abdoulaye [employer]audia Blue [phone] https://www.[email or web address]/JumpTime/resources/getResource/61/[email or web address] Completed 07/06/2019 Visit Diagnosis Plan: Lymphoma involving lung Discussi on: Doing weekly lab and chemo ICD-9 : 202.82 ICD-10 : C85.99 05/10/2019 Visit Diagnosis Plan: Advanced chronic obstructive pul monary disease Discussion: Continue oxygen and pulmonary rehab Follow Up: 3 months ICD-9 : 496 ICD-10 : J44.9 05/10/2019 Appointment: Neela Hyman WPtel: [address] [place], [place] [phone] FOLLOW UP 05/10/2019 Appointment: Neela Hymantel: [address] [place], [place] [phone] he called 04/14/19-- he was at physical [...] : C85.99 03/29/2019 Appointment: Neela Hyman WPtel: [address] [place], [place] [phone] Follow Up 03/29/2019 Appointment: Neela Hyman WPtel: [address] [place], [place] [phone] [place] INJECTION 03/04/2019 Visit Diagnosis Plan: Chronic obstructiv e pulmonary disease with (acute) exacerbation Discussion: Increase SVNS with duoneb to QID Prednisone taper ICD-9 : 491.21 ICD-10 : J44.1 01/05/2019 Visit Diagnosis Plan: Other nonspecific abnormal findi ng of lung field Discussion: Referral to pulmonology--will likely need bronchoscopy--path results discussed ICD-9 : 786.6 ICD-10 : R91.8 01/05/2019 Appointment: Neela Hyman WPtel: [address] [place], [place] [phone] [place] FOLLOW UP 01/05/2019 Patient Education: prednisone- OptimizeRX Coupon [phone] https://www.MMIS/JumpTime/resources/getResource/61/[email or web address]-yr Completed 01/05/2019 Care Plan: Referral Order SNOMED-CT : 30 [id number] Pending 01/05/2019 Appointment: Neela Hyman WPtel: [address] [place], [place] [id number] [place] CANCELED 12/21/2018 Visit Diagnosis Plan: Solitary pulmonary nodule Discus esmer: CT guided needle biopsy of RUL lung mass ICD-9 : 793.11 ICD-10 : R91.1 12/09/2018 Visit Diagnosis Plan: Tinea corporis Discussion: Diflu can--hold simvastatin and fenofibrate while taking ICD-9 : 110.5 ICD-10 : B35.4 12/09/2018 Appointment: Neela Hyman WPtel: [address] [place] [address] [place] FOLLOW UP 12/09/2018 Appointment: Gely Harp [address] [address] [place] NO SHOW 12/01/2018 Visit Diagnosis Plan: [...] : J98.4 11/24/2018 Appointment: Neela Hyman WPtel: [address] [place] [address] FOLLOW UP 11/24/2018 Care Plan: PET IMAGE FULL BODY LOINC : 4 2711-2 Pending 11/24/2018 Appointment: Neela Hyman WPtel: [address] [place], [place] [phone] [place] Consult 09/21/2018 Visit Diagnosis Plan: Pneumonia, unspecified organism Discussion: Patient clinically improved. Recent CT scan from 09/07 showed unresolved right upper lobe pneumonia. Finished another 7 days of levaquin. Will repeat CBC early next week. Order sent with patient to get done at [facility]. FU CT recommended in 4 weeks. Patient states understanding. ICD-9 : 486 ICD-10 : J18.9 09/16/2018 Appointment: Amita Henderson [address] [facility] FOLLOW UP 09/16/2018 Visit Diagnosis Plan: Pneumonia, unspecified organism Discussion: Clinically patient feels and looks much better but need CT scan of chest due to ongoing round pneumonia in association with his known lymphoma ICD-9 : 486 ICD-10 : J18.9 09/03/2018 Appointment: Neela Hyman WPtel: [phone] [id number] FOLLOW UP 09/03/2018 Care Plan: CT THORAX W/O DYE LOINC : 473 66-0 Pending 09/03/2018 Visit Diagnosis Plan: Type 2 diabetes mellitus with hy perglycemia Discussion: Update fasting lab before upcoming appt. with doctor. Fasting labs- MagLab Order sent with patient- CBC, CMP, TSH, [...] Essential (primary) hypertension Discussion: Stable on diltiazem. jarrell Toprol. Had ECHO last week. Requesting copies of results from cardiology. ICD-9 : 401.9 ICD-10 : I10 08/27/2018 Appointment: Amita Henderson [address] [place], [place] [id number] FOLLOW UP 08/27/2018 Visit Diagnosis Plan: Pneumonia, [...] ICD-10 : R09.89 08/13/2018 Appointment: Amita Henderson [facility] [id number] [facility] FOLLOW UP 08/13/2018 Appointment: Amita Henderson [facility] [id number] CANCELED 08/13/2018 Patient Education: prednisone- OptimizeRX Coupon [phone] https://www.MMIS/sampleLiveAir Networks/resources/getResource/61/il77uw5g-[email or web address] Completed 08/13/2018 Visit Diagnosis Plan: Other specified [...] ICD-10 : J18.9 08/11/2018 Appointment: Amita Henderson [facility] [id number] ACUTE ILLNESS 08/11/2018 Care Plan: CHEST X-RAY 2VW FRONTAL&LATL LOINC : 61905-9 Pending 07/20/2018 Visit Diagnosis Plan: Dyspnea, unspecified Discussion: CXR- to be completed at the hospital. Will call with results and any adjustments in plan. Solumedrol 125 administered in clinic Prednisone 20 mg BID x 5 days- start tomorrow ICD-9 : 786.09 ICD-10 : R06.00 07/16/2018 Appointment: Amita Henderson [address] [place] [id number] ACUTE ILLNESS 07/16/2018 Patient Education: prednisone- Opt[employer]RX Coupon [phone] https://www.MMIS/samplemd/resources/getResource/61/[email or web address]-mb50-5qn2-r0 Completed 07/16/2018 Visit Diagnosis Plan: Acute bronchitis due to other sp ecified organisms Discussion: Kenalog 40 mg IM administered in clinic. Doxycycline called into [facility]. Take as directed. Continue nebulizer and Trelegy. Follow up if symptoms are not improving with treatment regimen. Patient states understanding of all instruction. ICD-9 : 466.0 ICD-10 : J20.8 07/13/2018 Appointment: Amita Henderson [address] [place] [address] ACUTE ILLNESS 07/13/2018 Patient Education: doxycycline hyclate- OptimizeRX Cou saritha [phone] https://www.JumpTime.[employer]/JumpTime/resources/getResource/61/4y083l93-7l2t-8209-8d Completed 07/13/2018 Care Plan: [place]PREH[place] : [address]75[address]-0 Pending 07/13/2018 Care Plan: CBC Pending 07/13/2018 Care Plan: A1C HPLC LOINC : 79687-0 Pending 07/13/2018 Visit Diagnosis Plan: Mixed hyperlipidemia [...] : I10 06/03/2018 Appointment: Neela Hyman WPtel: [phone] [facility] FOLLOW UP 06/03/2018 Visit Diagnosis Plan: Chronic [...] ICD-10 : J44.9 05/04/2018 Appointment: Gely Harp [address] [place], [place] [email or web address] ACUTE ILLNESS 05/04/2018 Visit Diagnosis Plan: Localized edema Discussion: Cont inue lasix and potassium at every other day Recheck lab and fwup in 3mos Follow Up: 3 months ICD-9 : 782.3 ICD-10 : R60.0 03/03/2018 Appointment: Neela Hyman WPtel: [address] [place], [place] [phone] FOLLOW UP 03/03/2018 Patient Education: Patient Medication Summary Completed 03/03/2018 Visit Diagnosis Plan: Localized edema Discussion: Finch ge lasix and potassium to every other day Check Chem 7 in 2 weeks and fwup ICD-9 : 782.3 ICD-10 : R60.0 02/17/2018 Appointment: Neela Hyman WPtel: [address] [place], [place] [email or web address] FOLLOW UP 02/17/2018 Patient Education: Patient Medication [...] : R60.0 02/10/2018 Appointment: Neela Hyman WPtel: [address] [place], [place] [phone] [place] FOLLOW UP 02/10/2018 Patient Education: Patient Medication [...] : L02.212 11/05/2017 Appointment: Neela Hyman WPtel: [address] [place], [place] [phone] [place] FOLLOW UP 11/05/2017 Patient Education: Patient Medication Summary Completed 11/05/2017 Patient Education: Patient Medication Summary Completed 11/03/2017 Care Plan: [place] : [address]-5 Pending 11/03/2017 Care Plan: LIPID PANEL LOINC : 02965-2 Pending 11/03/2017 Care Plan: CBC Pending 11/03/2017 Care Plan: A1C HPLC LOINC : 89713-6 Pending 11/03/2017 Visit Diagnosis Plan: Allergic urticaria Discussion: l esion was placed under fluorescent lamp and showed [...] ICD-10 : L50.0 09/09/2017 Appointment: Gely Harp [address] [place], [place] [email or web address] ACUTE ILLNESS 09/09/2017 Patient Education: Patient Medication [...] ICD-10 : R59.1 08/07/2017 Appointment: Gely Harp [address] [place], [place] [phone] Hospital Follow Up 08/07/2017 Patient Education: Patient Medication Summary Completed 08/07/2017 Visit Diagnosis Plan: Type 2 diabetes mellitus without complications Discussion: Accuchecks daily Lab discussed Continue current meds ICD-9 : 250.00 ICD-10 : E11.9 08/04/2017 Visit Diagnosis Plan: Essential (primary) hypertension Discussion: Increase Cardizem CD to 360mg daily ICD-9 : 401.9 ICD-10 : I10 08/04/2017 Appointment: Neela Hyman WPtel: [phone] [facility] FOLLOW UP 08/04/2017 Patient Education: Patient Medication Summary Completed 08/04/2017 Patient Education: Patient Medication Summary Completed 07/31/2017 Care Plan: [place] : [address]-7 Pending 07/31/2017 Care Plan: ASSAY THYROID STIM HORMONE Pen ding 07/31/2017 Care Plan: LIPID PANEL LOINC : 32976-9 Pending 07/31/2017 Care Plan: CBC Pending 07/31/2017 Care Plan: A1C HPLC LOINC : 88173-5 Pending 07/31/2017 Patient Education: Patient Medication Summary Completed 06/19/2017 Patient Education: Patient Medication Summary Completed 06/09/2017 Care Plan: CT SOFT TISSUE [place]EC[place] : 04[address]-3 Pending 06/09/2017 Visit Diagnosis Plan: Acute sialoadenitis [...] ICD-10 : B02.9 06/04/2017 Appointment: Gely Harp [address] [place] [address] ACUTE ILLNESS 06/04/2017 Patient Education: Patient Medication [...] ICD-10 : B02.9 06/02/2017 Appointment: Gely Harp [address] [place] [address] ACUTE ILLNESS 06/02/2017 Patient Education: Patient Medication [...] E11.9 05/05/2017 Appointment: Neela Hyman WPtel: [phone] [facility] FOLLOW UP 05/05/2017 Patient Education: Patient Medication Summary Completed 05/05/2017 Patient Education: Patient Medication Summary Completed 05/01/2017 Care Plan: A1C HPLC [facility] : 79480-1 Pending 05/01/2017 Visit Diagnosis Plan: Chronic obstructiv [...] ICD-10 : H61.23 04/10/2017 Appointment: Gely Harp [address] [place], [place] [email or web address] ACUTE ILLNESS 04/10/2017 Patient Education: Patient Medication Summary Completed 04/10/2017 Appointment: Neela Hyman WPtel: [phone] [facility] US INJECTION 03/28/2017 Patient Education: Patient Medication Summary [...] : J44.9 02/03/2017 Appointment: Neela Hyman WPtel: [address] [place], [place] [address] [place] FOLLOW UP 02/03/2017 Patient Education: Patient Medication Summary Completed 02/03/2017 Patient Education: Patient Medication Summary Completed 01/30/2017 Care Plan: [place] : [address]-3 Pending 01/30/2017 Care Plan: LIPID PANEL LOINC : 52483-0 Pending 01/30/2017 Care Plan: CBC Pending 01/30/2017 Care Plan: A1C HPLC LOINC : 57834-7 Pending 01/30/2017 Care Plan: ASSAY OF PSA [...] : E11.65 10/30/2016 Appointment: Neela Hyman WPtel: [facility] [facility] [place] [place] 10/29 lm ~sl 10/30 confirmed~sl FOLLOW UP 11/2016 Patient Education: Patient Medication Summary Completed 10/30/2016 Patient Education: Patient Medication Summary Completed 10/24/2016 Visit Diagnosis Plan: Acute bronchitis, unspecified Di scussion: Patient sounds and looks much improved Continue current regimen Keep appt with Dr Levi for Friday Follow up PRN ICD-9 : 466.0 ICD-10 : J20.9 08/30/2016 Appointment: [facility]ammi [facility]ajera [facility] [facility] 08/29 rang and rang rang 08/30 rang and rang called cell and no [...] 466.0 ICD-10 : J20.9 08/27/2016 Appointment: [facility]amm[facility]era[facility] [facility] 08/27/2016 Patient Education: Patient Medication Summary Completed 08/27/2016 Care Plan: Referral Order SNOMED-CT : 30 1392599 Pending 08/27/2016 Visit Diagnosis Plan: Type 2 [...] : I10 07/02/2016 Appointment: Neela Hyman WPtel: [address] [place], [place] [address] 07/01 rang and rang`sl FOLLOW UP 7 Patient Education: Patient Medication Summary Completed 07/02/2016 Patient Education: Patient Medication Summary Completed 06/27/2016 Care Plan: LIPID PANEL LOINC : 89713-4 Pending 06/27/2016 Care Plan: [place] : 323[address]-2 Pending 06/27/2016 Care Plan: A1C HPLC LOINC : 39132-4 Pending 06/27/2016 Visit Diagnosis Plan: Acute bronchitis, [...] ICD-10 : J20.9 06/14/2016 Appointment: Sammi Najera [address] [place], [place] [phone] FOLLOW UP 06/14/2016 Patient Education: Patient Medication [...] ICD-10 : J20.9 06/13/2016 Appointment: Sammi Najera [address] [place], [place] [phone] ACUTE ILLNESS 06/13/2016 Patient Education: Patient Medication Summary Completed 06/13/2016 Care Plan: CHEST X-RAY 2VW FRONTAL&LATL LOINC : 32878-5 Pending 06/13/2016 Visit Plan: Increase metoprolol to 100mg po BID BP readings and BP check in 1month 05/14/2016 Appointment: Neela Hyman WPtel: [address] [place] [address] 05/13 rang and rang`sl FOLLOW UP 6 Patient Education: Patient Medication Summary Completed 05/14/2016 Visit Plan: Increase metoprolol to 50mg BID BP check in 1 week f/u BP appt 2 weeks consider musculoskeletal if pain returns 04/29/2016 Appointment: Neela Hyman WPtel: [address] [place], [place] [phone] 04/25 confimred~sl FOLLOW UP 04/29/2016 Patient Education: Patient Medication Summary Completed 04/29/2016 Visit Plan: Stat CT scan of abdomen/pelv is to look for stone Hydrate and use tramadol prn Increase metoprolol to 25mg po BID Will see urology pending CT scan results 04/22/2016 Appointment: Neela Hyman WPtel: [address] [place], [place] [address] 04/17 confirmed-sp ACUTE ILLNESS 04/22/2016 Patient Education: [...] flu shot 04/01/2016 Appointment: Neela Hyman WPtel: [address] [place], [place] [phone] [place] FOLLOW UP 04/01/2016 Patient Education: Patient Medication Summary Completed 04/01/2016 Patient Education: [facility] [place] - Saving AutoInj - 18-64 - Dynamic Heber l ID Completed 04/01/2016 Patient Education: Patient Medication Summary Completed 03/28/2016 Care Plan: A1C HPLC LOINC : 29263-4 Pending 03/28/2016 Care Plan: COM[place] : 77535-8 Pending 03/28/2016 Visit Plan: Lab discussed Continue curre nt meds Accuchecks daily 11/30/2015 Appointment: Neela Hyman WPtel: [address] [place] [address] 11/28 confirmed~sl FOLLOW UP 11/30/2015 Patient Education: Patient Medication Summary Completed 11/30/2015 Appointment: Neela Hyman WPtel: [address] [place], [place] [phone] [place] RESCHEDULED 11/28/2015 Patient Education: Patient Medication Summary Completed 11/23/2015 Care Plan: COMPREH[place]AB[place] : 67698-9 Pending 11/23/2015 Care Plan: LIPID PANEL LOINC : 53809-8 Pending 11/23/2015 Care Plan: CBC Pending 11/23/2015 Care Plan: A1C HPLC LOINC : 95529-5 Pending 11/23/2015 Visit Plan: Lab discussed Surinder munguia Continue current meds Cymbalta helping with feet and mood 08/29/2015 Appointment: Neela Hyman WPtel: [phone] [facility] [place] FOLLOW UP 08/29/2015 Patient Education: Patient Medication Summary Completed 08/29/2015 Visit Plan: Check CXR Stop all steroids and steroid inhalers Use SVN with but change to duoneb Add singulair for allergy etiology Change fluoxetine to cymbalta 60mg daily Viagra samples given to try prn--warned of no nitrates 08/14/2015 Appointment: Neela Hyman WPtel: [phone] [facility] lm to reschedule ~sl 07/27 lm ~sl 08/09 busy 08/10 fer rosales-riley Annual Well Visit 08/14/2015 Patient Education: Patient Medication Summary Completed 08/14/2015 Care Plan: CHEST X-RAY 2VW FRONTAL&LATL LOINC : 47732-4 Ordered 08/14/2015 Visit Plan: Decadron 8mg given [...] improving as expected 08/09/2015 Appointment: Sammi Najera [phone] [facility] [facility] Follow UP 08/09/2015 Patient Education: Patient Medication Summary Completed 08/09/2015 Patient Education: [facility] [place] - Saving AutoInj - 18-64 - Dynamic Heber l ID Completed 08/09/2015 Patient Education: Symbicort - 18-64 - eCopay Completed 08/09/2015 Patient Education: Patient Medication Summary Completed 08/08/2015 Visit Plan: Lab discussed Accuchecks richard ly Patient admits has changed eating habits--was eating twinkies and cookies routinely and has stopped buying those Will keep meds same for now Justino got hearing aids and is doing well with it 05/22/2015 Appointment: Neela Hyman WPtel: [address] [place], [place] [phone] 05/17 confirmed~sl FOLLOW UP 05/22/2015 Patient Education: Patient Medication Summary Completed 05/22/2015 Patient Education: Patient Medication Summary Completed 05/15/2015 Visit Plan: Obtain EMGs done at [facility] from when fractured left arm Lab discussed Accuchecks daily 02/13/2015 Appointment: Neela Hyman WPtel: [address] [place], [place] [phone] 02/10 confrimed FOLLOW UP 02/13/2015 Patient Education: Patient Medication Summary Completed 02/13/2015 Patient Education: Patient Medication Summary Completed 02/09/2015 Visit Plan: discussed lab add fenofibrat e 134mg po daily recheck fasting lab in 3 months, CBC, CMP, Lipids, hgb AIC 11/07/2014 Appointment: Neela Hyman WPtel: [address] [place], [place] [id number] 11/04 appt confirmed cn FOLLOW UP 015 Patient Education: Patient Medication Summary Completed 11/07/2014 Patient Education: Patient Medication Summary Completed 11/03/2014 Visit Plan: Continue loratadine 10mg richard ly Notify if symptoms return 10/04/2014 Appointment: Neela Hyman WPtel: [address] [place], [place] [phone] confirmed on 10/03 at 2:42pm FOLLOW UP 09/23 Patient Education: Patient Medication Summary Completed 10/04/2014 Appointment: Neela Hyman WPtel: [address] ACUTE ILLNESS 09/28/2014 Appointment: RodrigoVirajLoren WPtel: [address] [place] [address] FOLLOW UP 09/22/2014 Patient Education: Patient Medication Summary Completed 09/22/2014 Appointment: Loren Garza Delma WPtel: [address] [place] [address] ACUTE ILLNESS 09/21/2014 Patient Education: Patient Medication Summary Completed 09/21/2014 Patient Education: [facility] - Saving AutoInj - 18+ - Dynamic Portal ID Completed 09/21/2014 Visit Plan: Lab discussed Continue daily accuchecks Continue current meds 06/28/2014 Appointment: Neela Hyman WPtel: [address] [place] [address] FOLLOW UP 06/28/2014 Patient Education: Patient Medication Summary Completed 06/28/2014 Patient Education: Patient Medication Summary Completed 06/23/2014 Appointment: Sarah Sunshine WPtel: [address] [place] [address] ACUTE ILLNESS 06/10/2014 Patient Education: Patient Medication Summary Completed 06/10/2014 Patient Education: [facility] - Saving AutoInj - 18+ - Dynamic Portal ID Completed 06/10/2014 Visit Plan: Lab discussed Continue daily accuchecks Continue current meds 03/29/2014 Appointment: Neela Hyman WPtel: [address] [place], [place] [email or web address] FOLLOW UP 03/29/2014 Patient Education: Patient Medication Summary Completed 03/29/2014 Patient Education: Patient Medication Summary Completed 03/23/2014 Visit Plan: Lab discussed Continue curre nt meds and accuchecks See surgery for removal of hand lesion 11/30/2013 Appointment: Neela Hyman WPtel: [address] [place], [place] [phone] [[email or web address]] 11/29 no answer FOLLOW UP 11/30/2013 Patient Education: Patient Medication Summary Completed 11/30/2013 Visit Plan: Lab discussed Continue curre nt meds 08/03/2013 Appointment: Neela Hyman WPtel: [address] [place] [address] FOLLOW UP 08/03/2013 Patient Education: Patient Medication Summary Completed 08/03/2013 Visit Plan: Lab Discussed Will continue current meds and pt will get back on diet/exercise Check lab in 4mos and fwup 04/06/2013 Appointment: Neela Hyman WPtel: [address] [place] [address] FOLLOW UP 04/06/2013 Patient Education: Patient Medication Summary Completed 04/06/2013 Visit Plan: Lab discussed Continue daily accuchecks 12/01/2012 Appointment: Neela Hyman WPtel: [address] [place] [address] 11/30 no answer FOLLOW UP 12/01/2012 Patient Education: Patient Medication Summary Completed 12/01/2012 Visit Plan: Continue current meds and da russell accuchecks Lab discussed 08/04/2012 Appointment: Neela Hyman WPtel: [address] [place] [address] FOLLOW UP 08/04/2012 Patient Education: Patient Medication Summary Completed 08/04/2012 Appointment: Neela Hyman WPtel: [address] [place], [place] [phone] [facility] 06/01/2012 Patient Education: Patient Medication Summary Completed 06/01/2012 Appointment: Janet Jean Baptiste WPtel: [address] [place], [place] [phone] [[email or web address]] FOLLOW UP 05/29/2012 Patient Education: Patient Medication Summary Completed 05/29/2012 Visit Plan: pt states Dr. Hyman told h is to increase his Prozac dose while she was talking to her at [facility]. Discussed that pt. should not increase or decrease dosage without Dr's knowledge. Pt. will seek hearing test here in town at the hearing aid place on [address]. Discussed that ear pain is likely caused by sinus pressure. Pt. will notify if no improvement. 05/25/2012 Appointment: Janet Jean Baptiste WPtel: [address] [place], [place] [phone] ACUTE ILLNESS 05/25/2012 Patient Education: Patient Medication Summary Completed 05/25/2012 Visit Plan: Continue current meds Contin ue daily accuchecks but alternate times Increase fish oil to 3gm daily 04/07/2012 Appointment: Neela Hyman WPtel: [address] [place] [address] 04/06 FOLLOW UP 04/07/2012 Patient Education: Patient Medication Summary Completed 04/07/2012 Appointment: Janet Jean Baptiste WPtel: [address] [place] [address] ACUTE ILLNESS 12/16/2011 Patient Education: Patient Medication Summary Completed 12/16/2011 Visit Plan: Increase 12/03/2011 Appointment: Neela Hyman WPtel: [address] [place] [address] FOLLOW UP 12/03/2011 Patient Education: Patient Medication Summary Completed 12/03/2011 Visit Plan: Continue current meds Contin ue accuchecks 08/29/2011 Appointment: Neela Hyman WPtel: [address] [place], [place] [phone] FOLLOW UP 08/29/2011 Patient Education: Patient Medication Summary Completed 08/29/2011 Visit Plan: Continue current meds except restart zocor 05/30/2011 Appointment: Neela Hyman WPtel: [address] [place], [place] [phone] [place] FOLLOW UP 05/30/2011 Patient Education: Patient Medication Summary Completed 05/30/2011 Visit Plan: Continue tennis elbow strap May go back to weight-lifing--light weigts every other day 01/29/2011 Appointment: Neela Hyman WPtel: [address] [place], [place] [phone] [place] FOLLOW UP 01/29/2011 Patient Education: Patient Medication Summary Completed 01/29/2011 Visit Plan: Continue tennis elbow strap and anti-inflammatories 01/14/2011 Appointment: Neela Hyman WPtel: [address] [place], [place] [phone] FOLLOW UP 01/14/2011 Appointment: Janet Jean Baptiste WPtel: [address] [place] [address] NEW PATIENT 01/14/2011 Patient Education: Patient Medication Summary Completed 01/14/2011 Appointment: Neela Hyman WPtel: [address] [place] [address] FOLLOW UP 01/08/2011 Appointment: Neela Hyman WPtel: [address] [place] [address] FOLLOW UP 01/01/2011 Appointment: Neela Hyman WPtel: [address] [place], [place] [phone] [[email or web address]] UA 01/01/2011 Patient Education: Patient Medication Summary [...] given. 11/29/2010 Appointment: Janet Jean Baptiste WPtel: [address] [place], [place] [phone] [[email or web address]] ACUTE ILLNESS 11/29/2010 Patient Education: Patient Medication Summary Completed 11/29/2010 Visit Plan: Cont current meds Check CMP, Lipids, HbA1C 08/28/2010 Appointment: Neela Hyman WPtel: [address] [place], [place] [phone] FOLLOW UP 08/28/2010 Patient Education: Patient Medication Summary Completed 08/28/2010 Visit Plan: Cont current meds and accuch ecks Add Zocor 40mg q HS Check Lipids and HbA1C in 3mos 06/05/2010 Appointment: Neela Hyman WPtel: [address] [place], [place] [phone] [place] FOLLOW UP 06/05/2010 Patient Education: Patient Medication Summary Completed 06/05/2010 Visit Plan: Check Lipids and HbA1C 02/05/2010 Appointment: Neela Hyman WPtel: [address] [place], [place] [phone] [place] FOLLOW UP 02/05/2010 Patient Education: Patient Medication Summary Completed 02/05/2010 Visit Plan: HbA1C in 3mos. Continue Accu checks BID alternating times. Check HbA1C, CMP, Lipids 10/09/2009 Appointment: Neela Hyman WPtel: [address] [place], [place] [phone] [place] FOLLOW UP 10/09/2009 Patient Education: Patient Medication Summary Completed 10/09/2009 Visit Plan: Saline nasal flushes prn. Ty lenol/Motrin prn headache. Notify if persists/symptoms worsening. 08/22/2009 Appointment: Neela Hyman WPtel: [address] [place], [place] [phone] ACUTE ILLNESS 08/22/2009 Patient Education: Patient Medication Summary Completed 08/22/2009 Referral: Aubrey Rand WPtel: [address] [place], [place] [id number] [place] Office will verfy his insurance then they will contact patient Completed Referral: Shahbaz Brennan WPtel: [address] [facility] [address] [id number] [place] Referral Completed Referral: Ion Levi [address] [place] [address] C&D [id number] [place] Referral Appointment Requested Referral: Ion Levi [address] [place] [address] C&D [id number] [place] Referral Appointment Requested Instructions Comment . [...] those Will keep meds same for now Patisigrid got hearing aids and is doing well with it . Obtain EMGs done at [facility] from when fractured left arm Lab discussed [...] while she was talking to her at [facility]. Discussed that pt. should not increase or decrease dosage without Dr's knowledge. Pt. will seek hearing test here in town at the hearing aid place on [address]. Discussed that ear pain is likely caused [...] not found Advance Directives Filename Date 12 Will06/06/2011
--- OUTSIDE RECORDS SUMMARY | 2019-12-09 08:53 | XMS REPORT | CCD ---
Author Author Michael Hyman D.O. Organization [facility] Address [address] [place] [address] Phone Care Team Providers Care Pattern Grader Supervisor Name Role Phone Neela Hyman D.O., PP Unavailable CCM Unavailable Summary Purpose Interface Exchange Insurance Providers Payer name Policy type / Coverage type Covered republican ID Effective Begin Date Effective End Date ABS FOR [employer] Commercial [employer] [id number] Unknown Family History Family History data not found Social History Social History Element Codes Description Effective Dates Marital status Unknown 05/30/[address]: [id number] Former smoker quit 25 years ago 01/01/2011 [...] chloride ER 20 mEq tablet,extended release RxNorm: 052211 TAKE ONE TABLET BY MOUTH TWO TIMES A DAY 11/01/2019 01/29/2020 Active Zocor 40 mg tablet RxNorm: 548512 TAKE ONE TABLET BY M OUTH EVERY NIGHT AT BEDTIME 10/20/2019 04/16/2020 Active MagOx 400 mg (241.3 mg magnesium) tablet RxNorm: 415007 TAKE ONE TABLET BY MOUTH EVERY DAY 10/20/2019 04/16/2020 Active fenofibrate micronized 134 mg capsule RxNorm: 789491 1 Capsule( s) Oral QD 09/22/2019 03/20/2020 Active metformin 500 mg tablet RxNorm: 577202 2 Tablet(s) Oral two afshan es a day 09/22/2019 12/20/2019 Active Benicar 40 mg tablet RxNorm: 567478 1 Tablet(s) Oral QD 09/22/2019 Active Singulair 10 mg tablet RxNorm: 801826 TAKE ONE TABLET BY MOUTH EVERY EVENING 09/22/2019 03/20/2020 Active Reselected prescribe r from [facility] to [facility] Lasix 40 mg tablet RxNorm: 592864 1 Tablet(s) Oral QD 08/24/201910/25 Inactive duloxetine 60 mg capsule,delayed release RxNorm: 818173 TAKE ONE CAPSULE BY MOUTH EVERY DAY 08/16/2019 02/11/2020 Active metoprolol succinate ER 100 mg tablet,extended release 24 hr RxNorm: 992611 TAKE ONE TABLET BY MOUTH TWICE A DAY 08/16/2019 05/11/2020 Active potassium chloride ER 20 mEq tablet,extended release RxNorm: 005022 1 Tablet(s) Oral two times a day 07/22/2019 10/19/2019 Inactive metformin 500 mg tablet RxNorm: 040254 2 Tablet(s) Oral two afshan es a day 07/13/2019 09/21/2019 Inactive Keflex 500 mg capsule RxNorm: 328572 1 Capsule(s) Oral three ti mes a day 07/06/2019 07/13/2019 Inactive Singulair 10 mg tablet RxNorm: 529217 TAKE ONE TABLET BY MOUTH EVERY EVENING 07/06/2019 09/21/2019 Inactive Reselected prescribe r from [facility] to [facility] Singulair 10 mg tablet RxNorm: 944303 TAKE ONE TABLET BY MOUTH EVERY EVENING 06/22/2019 07/05/2019 Inactive Reselected prescribe r from [facility] to [facility] Zocor 40 mg tablet RxNorm: 906363 TAKE ONE TABLET BY M OUTH EVERY NIGHT AT BEDTIME 06/21/2019 10/19/2019 Inactive MagOx 400 mg (241.3 mg magnesium) tablet RxNorm: 689357 1 Table t(s) Oral QD 06/21/2019 08/20/2019 Inactive diltiazem ER 360 mg capsule,24 hr,extended release RxNorm: 8 41139 TAKE ONE CAPSULE BY MOUTH AT BEDTIME -REPLACES 300MG 05/17/2019 11/12/2019 Inactive MagOx 400 mg (241.3 mg magnesium) tablet RxNorm: 814923 1 Table t(s) Oral QD 04/26/2019 06/20/2019 Inactive Lasix 40 mg tablet RxNorm: 126629 40 MG PO DAILY 04/12/2019 08/23/2019 Inactive Benicar 40 mg tablet RxNorm: 043920 1 Tablet(s) Oral QD 03/29/2019 Inactive potassium chloride ER 20 mEq tablet,extended release RxNorm: 537704 1 Tablet(s) Oral two times a day 03/29/2019 06/27/2019 Inactive potassium chloride ER 20 mEq tablet,extended release RxNorm: 619832 1 Tablet(s) Oral QD 03/29/2019 03/28/2019 Inactive Benicar 40 mg tablet RxNorm: 945275 1 Tablet(s) Oral QD 03/29/2019 Inactive MagOx 400 mg (241.3 mg magnesium) tablet RxNorm: 937823 1 Table t(s) Oral QD 03/29/2019 04/25/2019 Inactive metformin 500 mg tablet RxNorm: 677718 2 Tablet(s) Oral two afshan es a day 03/29/2019 07/12/2019 Inactive fenofibrate micronized 134 mg capsule RxNorm: 627247 TA KE ONE CAPSULE BY MOUTH EVERY DAY 03/05/2019 09/21/2019 Inactive duloxetine 60 mg capsule,delayed release RxNorm: 381710 1 Capsu le(s) PO QD 01/28/2019 07/26/2019 Inactive Trelegy Ellipta 100 mcg-62.5 mcg-25 mcg powder for inhalatio n RxNorm: 2185708 1 Puff(s) INH QD 01/06/2019 12/31/2019 Active 90 day supply prednisone 20 mg tablet RxNorm: 800112 1 Tablet(s) PO T ID for 3 days then 1 po BID for 3 days then 1 po daily for 3 days 01/05/2019 03/28/2019 Inacti ve metformin ER 1,000 mg tablet,extended release 24hr RxNorm: 1 904132 TAKE TWO TABLETS (1000MG) BY MOUTH TWO TIMES A DAY 12/22/2018 07/13/2019 Inacti ve Diflucan 100 mg tablet RxNorm: 775181 1 Tablet(s) PO QD 12/09/2018 Inactive prednisone 20 mg tablet RxNorm: 825679 1 Tablet(s) PO B ID for 4 days then 1 po daily for 4 days 11/24/2018 01/04/2019 Inactive albuterol sulfate 2.5 mg/3 mL (0.083 %) solution for n ebulization RxNorm: 964331 3 Milliliter(s) INH ONE VIAL VIA NEBULIZER EVERY 4 HOURS 019 07/21/2019 Inactive [AttnRPh: Saving apply/adjudicate RxGRP: SG20 RxBIN:[id number] RxPCN: ID#:[id number]] Trelegy Ellipta 100 mcg-62.5 mcg-25 mcg powder for inhalatio n RxNorm: 0362664 1 Puff(s) INH QD 10/27/2018 01/06/2019 Inactive 90 day supply diltiazem ER 360 mg capsule,24 hr,extended release RxNorm: 8 44141 TAKE ONE CAPSULE BY MOUTH AT BEDTIME -REPLACES 300MG 10/13/2018 04/10/2019 Inactive metoprolol succinate ER 100 mg tablet,extended release 24 hr RxNorm: 929563 TAKE ONE TABLET BY MOUTH TWICE A DAY 10/13/2018 07/09/2019 Inactive Trelegy Ellipta 100 mcg-62.5 mcg-25 mcg powder for inhalatio n RxNorm: 4750618 INHALE ONE PUFF ONCE DAILY 09/07/2018 10/27/2018 Inactive Levaquin 750 mg tablet RxNorm: 000351 1 Tablet(s) PO QD 09/07/2018 Inactive Levaquin 750 mg tablet RxNorm: 391683 1 Tablet(s) PO QD 09/07/2018 Inactive prednisone 20 mg tablet RxNorm: 867811 2 Tablet(s) PO QAM 08/13/2018 08/19/2018 Inactive Levaquin 500 mg tablet RxNorm: 560997 1 Tablet(s) PO QD 08/11/2018 Inactive fenofibrate micronized 134 mg capsule RxNorm: 248086 TA KE ONE CAPSULE BY MOUTH EVERY DAY 08/10/2018 02/05/2019 Inactive prednisone 20 mg tablet RxNorm: 762458 1 Tablet(s) PO BID 07/16/2018 07/20/2018 Inactive doxycycline hyclate 100 mg capsule RxNorm: 6774049 1 Capsule(s) PO BID 07/13/2018 07/22/2018 Inactive duloxetine 60 mg capsule,delayed release RxNorm: 914565 TAKE ONE CAPSULE BY MOUTH ONCE A DAY 07/08/2018 01/28/2019 Inactive Lasix 40 mg tablet RxNorm: 523660 1 TABLET(S) PO QAM 06/08/201809/05 Inactive potassium chloride ER 20 mEq tablet,extended release(p art/cryst) RxNorm: 3788212 1 TABLET(S) PO QD 06/08/2018 09/05/2018 Inactive metformin ER 1,000 mg tablet,extended release 24hr RxNorm: 1 067064 TAKE TWO TABLETS (1000MG) BY MOUTH TWO TIMES A DAY 06/01/2018 11/27/2018 Inacti ve Benicar HCT 40 mg-25 mg tablet RxNorm: 915100 TAKE ONE TABLET BY MOUTH ONCE DAILY 05/11/2018 03/28/2019 Inactive Zocor 40 mg tablet RxNorm: 991421 TAKE ONE TABLET BY M OUTH EVERY NIGHT AT BEDTIME 05/11/2018 06/20/2019 Inactive Trelegy Ellipta 100 mcg-62.5 mcg-25 mcg powder for inhalatio n RxNorm: 1700782 1 PUFF(S) INH QD 04/06/2018 07/04/2018 Inactive diltiazem ER 360 mg capsule,24 hr,extended release RxNorm: 8 88738 1 Capsule(s) PO QHS replaces 300mg dose 03/30/2018 09/25/2018 Inactive Trelegy Ellipta 100 mcg-62.5 mcg-25 mcg powder for inhalatio n RxNorm: 4273967 1 Puff(s) INH QD 02/24/2018 02/23/2018 Inactive Trelegy Ellipta 100 mcg-62.5 mcg-25 mcg powder for inhalatio n RxNorm: 3443191 1 Puff(s) INH QD 02/24/2018 02/23/2018 Inactive Trelegy Ellipta 100 mcg-62.5 mcg-25 mcg powder for inhalatio n RxNorm: 7218220 1 Puff(s) INH QD 02/24/2018 04/05/2018 Inactive Lasix 40 mg tablet RxNorm: 560285 1 Tablet(s) PO QAM 02/10/201803/11 Inactive potassium chloride ER 20 mEq tablet,extended release(p art/cryst) RxNorm: 8763134 1 Tablet(s) PO QD 02/10/2018 03/11/2018 Inactive fenofibrate micronized 134 mg capsule RxNorm: 804516 1 Capsule( s) PO QD 01/30/2018 07/28/2018 Inactive metoprolol succinate ER 100 mg tablet,extended release 24 hr RxNorm: 737072 TAKE ONE TABLET BY MOUTH TWICE A DAY 12/30/2017 09/25/2018 Inactive metformin ER 1,000 mg tablet,extended release 24hr RxNorm: 1 885942 1 Tablet(s) PO BID 11/17/2017 05/15/2018 Inactive [SAVINGS FOR NON -COVERED DRUGS -- BIN:769472, PCN: ASPROD1, Group: XXXXX, ID# [id number], Questions: . THIS IS NOT INSURANCE.] Benicar HCT 40 mg-25 mg tablet RxNorm: 056157 1 Tablet(s) PO QD 05/10/2018 Inactive [SAVINGS FOR NON-COVERED JESU GS -- BIN:169728, PCN: ASPROD1, Group: XXXXX, ID# [id number], Questions: . THIS IS NOT INSURANCE.] Bactroban 2 % topical cream RxNorm: 738133 Application TOP BID 10/2409/02/2018 Inactive clindamycin HCl 300 mg capsule RxNorm: 374518 2 Capsule(s) PO TID 0 11/05/2017 11/18/2017 Inactive duloxetine 60 mg capsule,delayed release RxNorm: 342685 Capsule(s) TAKE ONE CAPSULE BY MOUTH ONCE DAILY 09/24/2017 09/23/2017 Inactive triamcinolone acetonide 0.1 % topical ointment RxNorm: 0474208 1 TOP BID 09/09/2017 11/04/2017 Inactive Bactrim DS 800 mg-160 mg tablet RxNorm: 095686 1 Tablet(s) PO BID 0 08/07/2017 08/13/2017 Inactive metronidazole 500 mg tablet RxNorm: 379855 1 Tablet(s) PO BID 08/0708/13/2017 Inactive diltiazem ER 360 mg capsule,24 hr,extended release RxNorm: 8 52738 1 Capsule(s) PO QHS replaces 300mg dose 08/04/2017 01/30/2018 Inactive fenofibrate micronized 134 mg capsule RxNorm: 962073 1 Capsule( s) PO QD 07/21/2017 01/30/2018 Inactive Zocor 40 mg tablet RxNorm: 899533 1 Tablet(s) PO QHS 07/21/201705/10 Inactive GB duloxetine 60 mg capsule,delayed release RxNorm: 726508 Capsule(s) TAKE ONE CAPSULE BY MOUTH ONCE DAILY 06/24/2017 09/24/2017 Inactive Cleocin HCl 300 mg capsule RxNorm: 554554 2 Capsule(s) PO BID 06/0206/08/2017 Inactive acyclovir 800 mg tablet RxNorm: 866680 1 Tablet(s) PO 5x day 201706/08/2017 Inactive diltiazem ER 300 mg capsule,24 hr,extended release RxNorm: 8 86903 1 Capsule(s) PO QHS replaces 240mg dose 05/05/2017 08/03/2017 Inactive ipratropium-albuterol 0.5 mg-3 mg(2.5 mg base)/3 mL ne bulization soln RxNorm: 9532372 1 Unit Dose INH Q4H as needed 05/05/2017 01/04/2019 Inactive metformin ER 1,000 mg tablet,extended release 24hr RxNorm: 1 899340 1 Tablet(s) PO BID 04/28/2017 11/17/2017 Inactive [SAVINGS FOR NON -COVERED DRUGS -- BIN:037412, PCN: ASPROD1, Group: XXXXX, ID# [id number], Questions: . THIS IS NOT INSURANCE.] diltiazem ER (XR/XT) 240 mg capsule,extended release 2 4 hr, controlled RxNorm: 321434 TAKE ONE CAPSULE BY MOUTH EVERY DAY 04/15/2017 05/04/2017 Inact avani prednisone 20 mg tablet RxNorm: 334145 1 Tablet(s) PO QD 04/10/2017 1 06/14/2016 Inactive Breo Ellipta 200 mcg-25 mcg/dose powder for inhalation RxNor m: 1059517 1 Puff(s) INH QD 04/10/2017 02/09/2018 Inactive Breo Ellipta 200 mcg-25 mcg/dose powder for inhalation RxNor m: 6778425 1 Puff(s) INH QD 04/10/2017 04/09/2017 Inactive Levaquin 500 mg tablet RxNorm: 853539 1 Tablet(s) PO QD 04/10/2017 Inactive metoprolol succinate ER 100 mg tablet,extended release 24 hr RxNorm: 401627 TAKE ONE TABLET BY MOUTH TWICE A DAY 03/24/2017 12/18/2017 Inactive fenofibrate micronized 134 mg capsule RxNorm: 782170 1 Capsule( s) PO QD 01/16/2017 07/21/2017 Inactive Benicar HCT 40 mg-25 mg tablet RxNorm: 270407 1 Tablet(s) PO QD 11/17/2017 Inactive [SAVINGS FOR NON-COVERED JESU GS -- BIN:651765, PCN: ASPROD1, Group: XXXXX, ID# [id number], Questions: . THIS IS NOT INSURANCE.] metoprolol succinate ER 100 mg tablet,extended release 24 hr RxNorm: 040842 1 Tablet(s) PO BID 10/16/2016 03/23/2017 Inactive diltiazem ER (XR/XT) 240 mg capsule,extended release 2 4 hr, controlled RxNorm: 216570 1 Capsule(s) PO QD 10/16/2016 04/13/2017 Inactive [SAVINGS FOR NON- COVERED DRUGS -- BIN:072806, PCN: ASPROD1, Group: XXXXX, ID# [id number], Questions: . THIS IS NOT INSURANCE.] metformin ER 1,000 mg tablet,extended release 24hr RxNorm: 8 16449 1 Tablet(s) PO BID 10/16/2016 04/28/2017 Inactive [SAVINGS FOR NON -COVERED DRUGS -- BIN:458739, PCN: ASPROD1, Group: XXXXX, ID# [id number], Questions: . THIS IS NOT INSURANCE.] Zocor 40 mg tablet RxNorm: 748330 1 Tablet(s) PO QHS 10/16/201607/21 Inactive GB Singulair 10 mg tablet RxNorm: 110216 Tablet(s) 1 TABLET(S) PO QHS 08/27/2016 09/02/2018 Inactive prednisone 20 mg tablet RxNorm: 025441 1 Tablet(s) PO QD 08/27/2016 0 08/31/2016 Inactive ipratropium-albuterol 0.5 mg-3 mg(2.5 mg base)/3 mL ne bulization soln RxNorm: 6223437 1 Unit Dose INH Q4H as needed 08/27/2016 05/04/2017 Inactive metoprolol succinate ER 100 mg tablet,extended release 24 hr RxNorm: 628449 TAKE ONE TABLET BY MOUTH TWICE A DAY 08/05/2016 10/16/2016 Inactive duloxetine 60 mg capsule,delayed release RxNorm: 261640 TAKE ONE CAPSULE BY MOUTH ONCE DAILY 08/05/2016 06/24/2017 Inactive prednisone 20 mg tablet RxNorm: 722771 1 Tablet(s) PO QD 06/14/2016 0 06/18/2016 Inactive ipratropium-albuterol 0.5 mg-3 mg(2.5 mg base)/3 mL ne bulization soln RxNorm: 7397572 1 Unit Dose INH Q4H as needed 06/13/2016 08/26/2016 Inactive Levaquin 500 mg tablet RxNorm: 985616 1 Tablet(s) PO QD 06/13/2016 Inactive metoprolol succinate ER 100 mg tablet,extended release 24 hr RxNorm: 594141 1 Tablet(s) PO BID replaces 50mg dose 05/14/2016 07/12/2016 Inactive metoprolol succinate ER 50 mg tablet,extended release 24 hr RxNorm: 479432 1 Tablet(s) PO BID 04/29/2016 05/13/2016 Inactive prednisone 20 mg tablet RxNorm: 204147 1 Tablet(s) PO BID 04/22/2016 04/21/2016 Inactive prednisone 20 mg tablet RxNorm: 862481 1 Tablet(s) PO BID 04/22/2016 04/28/2016 Inactive Singulair 10 mg tablet RxNorm: 118459 Tablet(s) 1 TABLET(S) PO QHS 04/01/2016 08/26/2016 Inactive metoprolol succinate ER 25 mg tablet,extended release 24 hr RxNorm: 043408 1 Tablet(s) PO QHS for blood pressure 04/01/2016 05/13/2016 Inactive fenofibrate micronized 134 mg capsule RxNorm: 294547 TA KE ONE CAPSULE BY MOUTH DAILY 01/25/2016 01/16/2017 Inactive duloxetine 60 mg capsule,delayed release RxNorm: 760884 TAKE ONE CAPSULE BY MOUTH ONCE DAILY 01/25/2016 08/04/2016 Inactive Zocor 40 mg tablet RxNorm: 563867 TAKE ONE TABLET BY MOUTH AT B EDTIME 11/13/2015 10/16/2016 Inactive GB metformin ER 1,000 mg tablet,extended release 24hr RxNorm: 8 34341 1 Tablet(s) PO BID 10/26/2015 10/16/2016 Inactive [SAVINGS FOR NON -COVERED DRUGS -- BIN:203261, PCN: ASPROD1, Group: XXXXX, ID# [id number], Questions: . THIS IS NOT INSURANCE.] Benicar HCT 40 mg-25 mg tablet RxNorm: 775052 1 Tablet(s) PO QD 06/201511/11/2016 Inactive [SAVINGS FOR NON-COVERED JESU GS -- BIN:113029, PCN: ASPROD1, Group: XXXXX, ID# [id number], Questions: . THIS IS NOT INSURANCE.] diltiazem ER (XR/XT) 240 mg capsule,extended release,control led RxNorm: 847139 1 Capsule(s) PO QD 10/26/2015 10/15/2016 Inactive [SAVINGS FOR NO N-COVERED DRUGS -- BIN:011084, PCN: ASPROD1, Group: XXXXX, ID# [id number], Questions: . THIS IS NOT INSURANCE.] Singulair 10 mg tablet RxNorm: 229805 1 TABLET(S) PO QHS 09/18/2015 1 05/31/2015 Inactive Viagra 100 mg tablet RxNorm: 192329 1 Tablet(s) PO as needed 201511/23/2018 Inactive Singulair 10 mg tablet RxNorm: 438228 1 Tablet(s) PO QHS 08/16/2015 0 08/15/2015 Inactive Singulair 10 mg tablet RxNorm: 266565 1 Tablet(s) PO QHS 08/16/2015 0 09/14/2015 Inactive duloxetine 60 mg capsule,delayed release RxNorm: 728985 1 Capsule(s) PO QD replaces fluoxetine 08/14/2015 01/24/2016 Inactive ipratropium-albuterol 0.5 mg-3 mg(2.5 mg base)/3 mL ne bulization soln RxNorm: 4815465 1 Unit Dose INH Q4H as needed 08/14/2015 06/12/2016 Inactive prednisone 20 mg tablet RxNorm: 582587 Take 3 tabs PO o nce daily x 3 days, then 2 tabs PO once daily x 3 days and then 1 tab PO once daily x 3 days 08/09/2015 08/13/2015 Inactive Symbicort 160 mcg-4.5 mcg/actuation HFA aerosol inhaler RxNo rm: 8824106 2 Puff(s) INH BID 08/09/2015 08/13/2015 Inactive Zocor 40 mg tablet RxNorm: 320229 1 Tablet(s) PO QHS 05/23/201511/11 Inactive [AttnRPh: Saving apply/adjudicate RxGRP: SG20 RxBIN:[id number] RxPCN: ID#:[id number]] Benicar HCT 40 mg-25 mg tablet RxNorm: 930518 1 Tablet(s) PO QD 10/26/2015 Inactive [SAVINGS FOR NON-COVERED JESU GS -- BIN:853963, PCN: ASPROD1, Group: XXXXX, ID# XXXXXXX, Questions: . THIS IS NOT INSURANCE.] diltiazem ER (XR/XT) 240 mg capsule,extended release,control led RxNorm: 070396 1 Capsule(s) PO QD 04/24/2015 10/20/2015 Inactive [SAVINGS FOR NO N-COVERED DRUGS -- BIN:420326, PCN: ASPROD1, Group: XXXXX, ID# XXXXXXX, Questions: . THIS IS NOT INSURANCE.] fluoxetine 40 mg capsule RxNorm: 011965 1 Capsule(s) PO QD 04/24/20 15 08/13/2015 Inactive [SAVINGS FOR NON-COVERED JESU GS -- BIN:197819, PCN: ASPROD1, Group: XXXXX, ID# XXXXXXX, Questions: . THIS IS NOT INSURANCE.] Zocor 40 mg tablet RxNorm: 300359 TABLET(S) 1 TABLET(S) PO QHS 01/2505/23/2015 Inactive [AttnRPh: Saving apply/adjud icate RxGRP:SG20 RxBIN:[id number] RxPCN:HT ID#:[id number]] metformin ER 1,000 mg tablet,extended release 24hr RxNorm: 8 52212 1 TABLET(S) PO BID 01/29/2015 10/26/2015 Inactive [SAVINGS FOR NON -COVERED DRUGS -- BIN:228671, PCN: ASPROD1, Group: XXXXX, ID# XXXXXXX, Questions: . THIS IS NOT INSURANCE.] fenofibrate micronized 134 mg capsule RxNorm: 132794 1 CAPSULE( S) PO QD 01/23/2015 01/17/2016 Inactive fenofibrate micronized 134 mg capsule RxNorm: 615149 1 Capsule( s) PO QD 11/07/2014 01/22/2015 Inactive diltiazem ER (XR/XT) 240 mg capsule,extended release,control led RxNorm: 863957 1 Capsule(s) PO QD 10/24/2014 04/24/2015 Inactive [SAVINGS FOR NO N-COVERED DRUGS -- BIN:838154, PCN: ASPROD1, Group: XXXXX, ID# XXXXXXX, Questions: . THIS IS NOT INSURANCE.] Benicar HCT 40 mg-25 mg tablet RxNorm: 859085 1 Tablet(s) PO QD 05/201404/24/2015 Inactive [SAVINGS FOR NON-COVERED JESU GS -- BIN:340077, PCN: ASPROD1, Group: XXXXX, ID# XXXXXXX, Questions: . THIS IS NOT INSURANCE.] fluoxetine 40 mg capsule RxNorm: 357161 1 Capsule(s) PO QD 10/25/19 15 04/24/2015 Inactive [SAVINGS FOR NON-COVERED JESU GS -- BIN:375248, PCN: ASPROD1, Group: XXXXX, ID# XXXXXXX, Questions: . THIS IS NOT INSURANCE.] azithromycin 500 mg tablet RxNorm: 464892 1 Tablet(s) PO QD 015 09/27/2014 Inactive [SAVINGS FOR NON-COVERED JESU GS -- BIN:571111, PCN: ASPROD1, Group: XXXXX, ID# XXXXXXX, Questions: . THIS IS NOT INSURANCE.] albuterol sulfate 2.5 mg/3 mL (0.083 %) solution for n ebulization RxNorm: 672857 3 Milliliter(s) INH ONE VIAL VIA NEBULIZER EVERY 4 HOURS 015 11/19/2014 Inactive [AttnRPh: Saving apply/adjudicate RxGRP: SG20 RxBIN:[id number] RxPCN: ID#:[id number]] Zocor 40 mg tablet RxNorm: 944223 TABLET(S) 1 TABLET(S ) PO QHS 1 TABLET(S) PO QHS 09/04/2014 02/21/2015 Inactive [AttnRPh: Saving apply/adjudicate RxGRP:SG20 RxBIN:[id number] RxPCN: ID#:[id number]] metformin ER 1,000 mg tablet,extended release 24hr RxNorm: 8 81234 1 Tablet(s) PO BID 08/04/2014 01/28/2015 Inactive [SAVINGS FOR NON -COVERED DRUGS -- BIN:513314, PCN: ASPROD1, Group: XXXXX, ID# XXXXXXX, Questions: . THIS IS NOT INSURANCE.] Bromfed DM 2 mg-30 mg-10 mg/5 mL syrup RxNorm: 9080813 1 -2 Teaspoon(s) PO Q4H as needed for cough 06/10/2014 06/19/2014 Inactive [SAVINGS FOR UN INSURED PATIENTS -- BIN:614287, PCN: ASPROD1, Group: AME08, ID# [id number], Process claim through [employer], for questions: . THIS IS NOT INSURANCE.] Augmentin 875 mg-125 mg tablet RxNorm: 625436 1 Tablet(s) PO Q12H 0 06/10/2014 06/19/2014 Inactive [AttnRPh: Saving apply/adjud icate RxGRP:SG20 RxBIN:[id number] RxPCN: ID#:[id number]] Zocor 40 mg tablet RxNorm: 938759 Tablet(s) 1 TABLET(S ) PO QHS 1 TABLET(S) PO QHS 05/25/2014 08/22/2014 Inactive [AttnRPh: Saving apply/adjudicate RxGRP:SG20 RxBIN:[id number] RxPCN:HT ID#:[id number]] fluoxetine 40 mg capsule RxNorm: 457097 1 Capsule(s) PO QD 04/29/20 14 10/24/2014 Inactive [AttnRPh: Saving apply/adjud icate RxGRP:SG20 RxBIN:[id number] RxPCN:HT ID#:[id number]] diltiazem ER (XR/XT) 240 mg capsule,extended release,control led RxNorm: 916744 1 Capsule(s) PO QD 04/29/2014 10/24/2014 Inactive [AttnRPh: Savin g apply/adjudicate RxGRP:SG20 RxBIN:[id number] RxPCN:HT ID#:[id number]] Benicar HCT 40 mg-25 mg tablet RxNorm: 177490 1 Tablet(s) PO QD 09/201310/24/2014 Inactive [AttnRPh: Saving apply/adjud icate RxGRP:SG20 RxBIN:[id number] RxPCN:HT ID#:[id number]] Zocor 40 mg tablet RxNorm: 316982 1 TABLET(S) PO QHS 1 TABLET(S ) PO QHS 03/07/2014 05/25/2014 Inactive [AttnRPh: Saving chelsie ly/adjudicate RxGRP:SG20 RxBIN:[id number] RxPCN:HT ID#:[id number]] Zocor 40 mg tablet RxNorm: 124941 1 Tablet(s) PO QHS 1 TABLET(S ) PO QHS 12/06/2013 03/05/2014 Inactive [AttnRPh: Saving chelsie ly/adjudicate RxGRP:SG20 RxBIN:[id number] RxPCN:HT ID#:[id number]] diltiazem ER (XR/XT) 240 mg capsule,extended release,control led RxNorm: 594105 1 Capsule(s) PO QD 10/25/2013 04/22/2014 Inactive [AttnRPh: Leonelin g apply/adjudicate RxGRP:SG20 RxBIN:[id number] RxPCN:HT ID#:[id number]] fluoxetine 40 mg capsule RxNorm: 029675 1 Capsule(s) PO QD 10/26/1904/22/2014 Inactive [AttnRPh: Saving apply/adjud icate RxGRP:SG20 RxBIN:[id number] RxPCN:HT ID#:[id number]] Zocor 40 mg tablet RxNorm: 606131 1 Tablet(s) PO QHS 1 TABLET(S ) PO QHS 09/13/2013 12/06/2013 Inactive metformin ER 1,000 mg tablet,extended release 24hr RxNorm: 8 50464 Tablet(s) PO TAKE 1 TABLET BY MOUTH TWICE DAILY (REPLACES 500MG DOSE) 07/26/201303/2015 Inactive diltiazem ER (XR/XT) 240 mg capsule,extended release,control led RxNorm: 448942 1 Capsule(s) PO QD 05/03/2013 10/25/2013 Inactive fluoxetine 40 mg capsule RxNorm: 068642 1 Capsule(s) PO QD 05/03/2010/25/2013 Inactive Benicar HCT 40 mg-25 mg tablet RxNorm: 638278 1 Tablet(s) PO QD 01/201304/29/2014 Inactive Zocor 40 mg tablet RxNorm: 067884 1 Tablet(s) PO QHS 12/10/201209/13 Inactive fluoxetine 40 mg capsule RxNorm: 226040 1 Capsule(s) PO QD 11/10/19 13 05/03/2013 Inactive diltiazem ER (XR/XT) 240 mg capsule,extended release,control led RxNorm: 244020 1 Capsule(s) PO QD 11/09/2012 05/03/2013 Inactive Benicar HCT 40 mg-25 mg tablet RxNorm: 162774 1 Tablet(s) PO QD 05/03/2013 Inactive metformin ER 1,000 mg tablet,extended release 24hr RxNorm: 8 01143 Tablet(s) PO TAKE 1 TABLET BY MOUTH TWICE DAILY (REPLACES 500MG DOSE) 08/05/201206/2013 Inactive Zocor 40 mg tablet RxNorm: 037413 1 Tablet(s) PO QHS 06/15/201212/09 Inactive fluoxetine 40 mg capsule RxNorm: 561586 1 Capsule(s) PO QD 05/15/20 12 11/08/2012 Inactive Neurontin 600 mg Tab RxNorm: 583680 1 Tablet(s) PO QHS 12/03/2011 Inactive metformin ER 1,000 mg tablet,extended release 24hr RxNorm: 8 21361 1 Tablet(s) PO BID replaces 500mg dose 12/03/2011 07/26/2013 Inactive Zocor 40 mg tablet RxNorm: 922517 1 Tablet(s) PO QHS 12/03/201106/15 Inactive fluoxetine 20 mg capsule RxNorm: 720160 1 Capsule(s) PO QD 12/03/19 12 05/24/2012 Inactive diltiazem ER (XR/XT) 240 mg capsule,extended release,control led RxNorm: 347371 1 Capsule(s) PO QD 11/15/2011 11/09/2012 Inactive Benicar HCT 40 mg-25 mg tablet RxNorm: 537841 1 Tablet(s) PO QD 02/16/2012 Inactive metformin ER 500 mg 24 hr Tab RxNorm: 706481 1 Tablet(s) PO BID 12/02/2011 Inactive Zocor 40 mg Tab RxNorm: 834880 1 Tablet(s) PO QHS 05/30/2011 11/25/19 12 Inactive fluoxetine 20 mg Cap RxNorm: 977479 1 Capsule(s) PO QD 05/28/2011 Inactive Neurontin 600 mg Tab RxNorm: 713352 1 Tablet(s) PO QHS 05/28/2011 Inactive Neurontin 600 mg Tab RxNorm: 666691 1 Tablet(s) PO QHS 02/22/201106/2011 Inactive Neurontin 600 mg Tab RxNorm: 805018 1 Tablet(s) PO QHS 01/14/2011 Inactive Neurontin 300 mg Cap RxNorm: 483404 1 Capsule(s) PO QHS 01/14/2011 Inactive Neurontin 600 mg Tab RxNorm: 096160 1 Tablet(s) PO QHS 01/14/2011 Inactive Medrol (Vipul) 4 mg Tabs in a Dose Pack RxNorm: 787641 Tablet(s) PO 0 01/02/2011 08/28/2011 Inactive as directed fluoxetine 20 mg Cap RxNorm: 774974 1 Capsule(s) PO QD 12/10/201006/2011 Inactive Zocor 40 mg Tab RxNorm: 587979 1 Tablet(s) PO QHS 12/03/2010 05/29/19 12 Inactive Neurontin 300 mg Cap RxNorm: 715074 1 Capsule(s) PO QHS 12/03/2010 Inactive Septra DS 800 mg-160 mg Tab RxNorm: 966734 1 Tablet(s) PO BID 11/2912/08/2010 Inactive diltiazem ER (XR/XT) 240 mg Continuous Release Cap RxNorm: 8 47384 1 Capsule(s) PO QD 11/20/2010 11/15/2011 Inactive Neurontin 300 mg Cap RxNorm: 227943 1 Capsule(s) PO QHS 11/06/2010 Inactive Neurontin 300 mg Cap RxNorm: 487420 1 Capsule(s) PO QHS 11/06/2010 Inactive Celebrex 200 mg Cap RxNorm: 767856 1 Capsule(s) PO BID 10/24/2010 Inactive fluoxetine 20 mg Cap RxNorm: 119932 1 Capsule(s) PO QD 06/07/201003/2011 Inactive Zocor 40 mg Tab RxNorm: 114427 1 Tablet(s) PO QHS 06/05/2010 12/02/19 11 Inactive Benicar HCT 40 mg-25 mg Tab RxNorm: 028438 1 Tablet(s) PO QD 200908/21/2011 Inactive Diltiazem 240 mg Continuous Release Cap RxNorm: 284594 1 Capsul e(s) PO QD 11/09/2009 09/02/2018 Inactive Avelox 400 mg Tab RxNorm: 093957 1 Tablet(s) PO QD 08/22/2009 010 Inactive ProAir HFA 90 mcg/actuation aerosol inhaler RxNorm: 300150 2 Puff(s) INH Q4H as needed No Start Date Active tramadol 50 mg tablet RxNorm: 366113 1-2 Tablet(s) PO TID as ne eded for pain No Start Date Active Tylenol Arthritis 650 mg Tab RxNorm: 2285684 2 Tablet(s) PO QD No Sta rt Date Active Celebrex 200 mg Cap RxNorm: 642905 1 Capsule(s) PO BID No Start Date 08/08/2015 Inactive Medrol (Vipul) 4 mg Tabs in a Dose Pack RxNorm: 725637 Tablet(s) PO N o Start Date 01/01/2011 Inactive as directed Promethazine-DM 6.25 mg-15 mg/5 mL Syrup RxNorm: 841558 1-2 Teaspoon(s) PO Q4H prn cough No Start Date 08/28/2011 Inactive Claritin 10 mg tablet RxNorm: 616594 1 Tablet(s) PO QD No Start Date 08/08/2015 Inactive Xsyekysrvv-Orpaj-EWP-James-115HC Oral RxNorm: Oral No Start Da te 03/28/2019 Inactive Breo Ellipta 200 mcg-25 mcg/dose powder for inhalation RxNor m: 8657999 1 Puff(s) INH QD No Start Date 04/09/2017 Inactive metformin 500 mg Tab RxNorm: 492238 1 Tablet(s) PO QD No Start Date 0 08/17/2011 Inactive Diltiazem 240 mg Continuous Release Cap RxNorm: 692563 1 Capsul e(s) PO BID No Start Date 11/08/2009 Inactive fluoxetine 20 mg Cap RxNorm: 654678 1 Capsule(s) PO QD No Start Date 06/07/2010 Inactive Multivitamin & Mineral Formula Oral RxNorm: Oral No Start Da te 03/28/2019 Inactive Medrol (Vipul) 4 mg tablets in a dose pack RxNorm: 988685 Tablet(s) PO as directed No Start Date 05/28/2012 Inactive Fish Oil 1,000 mg Cap RxNorm: 1 Capsule(s) PO QD No Start Date 07/2018 Inactive Nexium 40 mg Cap RxNorm: 930654 1 Capsule(s) PO QD No Start Date 07/24 Inactive fluticasone 50 mcg/actuation nasal spray,suspension RxNorm: 9086800 2 [place] NASAL QD to each nostril No Start Date 08/03/2017 Inactive Viagra 100 mg tablet RxNorm: 082528 1 Tablet(s) PO as needed No Sta rt Date 09/17/2015 Inactive prednisone 20 mg tablet RxNorm: 172758 1 Tablet(s) PO B ID for 4 days then 1 po daily for 4 days No Start Date 11/23/2018 Inactive Benicar HCT 40 mg-25 mg Tab RxNorm: 875852 1 Tablet(s) PO QD No Sta rt [...] Date S ervice Location MICROALBUMIN URINE RANDOM 02722 MICRL MG/L 5.8 MG/L 03/2011 Unknown MICROALBUMIN URINE RANDOM 51346 XM.ALB/CRE 5.2 MG/GCR Unknown MICROALBUMIN URINE RANDOM 50269 CREAT MG/D 111 MG/DL 03/2011 Unknown MICROALBUMIN URINE RANDOM 29116 CRE/100 1.11 G/L 12/24 Unknown Procedures Procedure Codes Date FLU VACC PRSV FREE INC ANTIG 65 AND OLDER CPT-4: 37761 03/04/2019 ADMIN PNEUMOCOCCAL VACCINE CPT-4: G0009 03/04/2019 ADMIN INFLUENZA VIRUS VAC CPT-4: G0008 03/04/2019 FLU VACC PRSV FREE INC ANTIG 65 AND OLDER CPT-4: 56560 03/04/2019 PNEUMOCOCCAL VACC 23 [facility] CPT-4: 08241 03/04/2019 THER/PROPH/DIAG INJ SC/IM CPT-4: 84936 08/11/2018 TRIAMCINOLONE ACET INJ NOS CPT-4: J3301 08/11/2018 DEXAMETHASONE SODIUM PHOS CPT-4: J1100 08/11/2018 THER/PROPH/DIAG INJ SC/IM CPT-4: 62550 07/16/2018 METHYLPREDNISOLONE INJECTION CPT-4: J2930 07/16/2018 INFLUENZA ASSAY W/OPTIC CPT-4: 59703 07/16/2018 THER/PROPH/DIAG INJ SC/IM CPT-4: 92660 07/13/2018 TRIAMCINOLONE ACET INJ NOS CPT-4: J3301 07/13/2018 THER/PROPH/DIAG INJ SC/IM CPT-4: 66641 05/04/2018 METHYLPREDNISOLONE INJECTION CPT-4: J2930 05/04/2018 FLU VACC PRSV FREE INC ANTIG 65 AND OLDER CPT-4: 83587 02/10/2018 PNEUMOCOCCAL VACC 13 [facility] CPT-4: 85181 02/10/2018 ADMIN INFLUENZA VIRUS VAC CPT-4: G0008 02/10/2018 ADMIN PNEUMOCOCCAL VACCINE CPT-4: G0009 02/10/2018 THER/PROPH/DIAG INJ SC/IM CPT-4: 76522 09/09/2017 TRIAMCINOLONE ACET INJ NOS CPT-4: J3301 09/09/2017 ALBUTEROL NON-COMP UNIT CPT-4: J7613 04/10/2017 AIRWAY INHALATION TREATMENT CPT-4: 06832 04/10/2017 PRESCRIP TRANSMIT VIA ERX SY CPT-4: G8553 04/10/2017 FLU VACC PRSV FREE INC ANTIG 65 AND OLDER CPT-4: 83751 03/28/2017 ADMIN INFLUENZA VIRUS VAC CPT-4: G0008 03/28/2017 PRESCRIP TRANSMIT VIA ERX SY CPT-4: G8553 08/27/2016 PRESCRIP TRANSMIT VIA ERX SY CPT-4: G8553 06/14/2016 ALBUTEROL NON-COMP UNIT CPT-4: J7613 06/13/2016 AIRWAY INHALATION TREATMENT CPT-4: 78645 06/13/2016 PRESCRIP TRANSMIT VIA ERX SY CPT-4: [...] CPT-4: G8553 11/07/2014 THER/PROPH/DIAG INJ SC/IM CPT-4: 17793 09/21/2014 METHYLPREDNISOLONE INJECTION CPT-4: J2930 09/21/2014 PRESCRIP TRANSMIT VIA ERX SY CPT-4: G8553 09/21/2014 PRESCRIP TRANSMIT VIA ERX SY CPT-4: G8553 06/10/2014 URINALYSIS NONAUTO W/O SCOPE CPT-4: 30768 06/01/2012 PRESCRIP TRANSMIT VIA ERX SY CPT-4: G8553 05/25/2012 PRESCRIP TRANSMIT VIA ERX SY CPT-4: G8553 12/03/2011 CUR TOBACCO NON-USER CPT-4: G8457 05/30/2011 PRESCRIP TRANSMIT VIA ERX SY CPT-4: G8553 05/30/2011 URINALYSIS NONAUTO W/O SCOPE CPT-4: 05890 01/01/2011 URINE CULTURE/ COLONY COUNT CPT-4: 27609 01/01/2011 CUR TOBACCO NON-USER CPT-4: G8457 01/01/2011 [...] 1: 114/68 Code: 8480-6 BMI: 43.5 Code: 64247-0 Heart Rate 1: 52 bpm Height: 6'1" [...] 1: 136/72 Code: 8480-6 BMI: 42.7 Code: 20305-0 Heart Rate 1: 60 bpm Height: 6'1" Respiratory Rate: 22 bpm SpO2: 95% Tempera ture: 37.1 (C) / 98.7 (F) Weight: 324 lbs 02/10/2018 Blood Pressure 1: 146/78 Code: 8480-6 BMI: 42.4 Code: 48388-1 Heart Rate 1: 64 bpm Height: 6'1" Respiratory Rate: 22 bpm SpO2: 95% Tempera ture: 36.5 (C) / 97.7 (F) Weight: 321 lbs 11/05/2017 Blood Pressure 1: 128/84 Code: 8480-6 BMI: 42.9 Code: 06748-2 Heart Rate 1: 52 bpm Height: 6'1" Respiratory Rate: 22 bpm SpO2: 95% Tempera ture: 36.3 (C) / 97.3 (F) Weight: 325 lbs 09/09/2017 Blood Pressure 1: 162/90 Code: 8480-6 BMI: 42.5 Code: 74455-1 Heart Rate 1: 60 bpm Height: 6'1" Respiratory Rate: 24 bpm SpO2: 95% Tempera ture: 36.4 (C) / 97.6 (F) Weight: 322 lbs 08/07/2017 Blood Pressure 1: 152/90 Code: 8480-6 BMI: 42.2 Code: 34105-0 Heart Rate 1: 60 bpm Height: 6'1" Respiratory Rate: 26 bpm SpO2: 94% Tempera ture: 36.6 (C) / 97.8 (F) Weight: 320 lbs 08/04/2017 Blood Pressure 1: 150/86 Code: 8480-6 BMI: 42.7 Code: 53618-0 Heart Rate 1: 64 bpm Height: 6'1" Respiratory Rate: 20 bpm SpO2: 94% Tempera ture: 36.3 (C) / 97.3 (F) Weight: 324 lbs 06/04/2017 Blood Pressure 1: 164/90 Code: 8480-6 Heart Rate 1: 60 bpm Respiratory Rate: 24 bpm SpO2: 94% Temperature: 36.8 (C) / 98.3 (F) 06/02/2017 Blood Pressure 1: 162/80 Code: 8480-6 BMI: 42.9 Code: 18773-0 Heart Rate 1: 66 bpm Height: 6'1" Respiratory Rate: 22 bpm SpO2: 98% Tempera ture: 36.6 (C) / 97.8 (F) Weight: 325 lbs 05/05/2017 Blood Pressure 1: 164/94 Code: 8480-6 BMI: 41.4 Code: 11326-0 Heart Rate 1: 64 bpm Height: 6'1" Respiratory Rate: 22 bpm SpO2: 95% Tempera ture: 36.4 (C) / 97.5 (F) Weight: 314 lbs 04/10/2017 Blood Pressure 1: 136/78 Code: 8480-6 BMI: 42.0 Code: 43711-3 Heart Rate 1: 76 bpm Height: 6'1" Respiratory Rate: 24 bpm SpO2: 92% Tempera ture: 35.9 (C) / 96.7 (F) Weight: 318 lbs 02/03/2017 Blood Pressure 1: 134/82 Code: 8480-6 BMI: 41.7 Code: 27338-8 Heart Rate 1: 72 bpm Height: 6'1" Respiratory Rate: 24 bpm SpO2: 95% Tempera ture: 36.1 (C) / 97.0 (F) Weight: 316 lbs 10/30/2016 Blood Pressure 1: 126/74 Code: 8480-6 BMI: 41.3 Code: 85036-0 Heart Rate 1: 68 bpm Height: 6'1" Respiratory Rate: 20 bpm Temperature: 37 .1 (C) / 98.8 (F) Weight: 313 lbs 08/30/2016 Blood Pressure 1: 146/80 Code: 8480-6 BMI: 41.7 Code: 58361-9 Heart Rate 1: 64 bpm Height: 6'1" Respiratory Rate: 24 bpm SpO2: 94% Tempera ture: 36.6 (C) / 97.8 (F) Weight: 316 lbs 08/27/2016 Blood Pressure 1: 124/78 Code: 8480-6 Heart Rate 1: 66 bpm Height: 6'2" Respiratory Rate: 18 bpm SpO2: 94% Temperature: 36.6 (C) / 97.8 (F) Weight: 07/02/2016 Blood Pressure 1: 126/78 Code: 8480-6 BMI: 41.4 Code: 32059-9 Heart Rate 1: 68 bpm Height: 6'1" Respiratory Rate: 24 bpm SpO2: 94% Tempera ture: 36.6 (C) / 97.8 (F) Weight: 314 lbs 06/14/2016 Blood Pressure 1: 146/82 Code: 8480-6 Heart Rate 1: 80 bpm Respiratory Rate: 20 bpm SpO2: 95% Temperature: 37.3 (C) / 99.2 (F) 06/13/2016 Blood Pressure 1: 146/84 Code: 8480-6 BMI: 40.5 Code: 48433-7 Heart Rate 1: 66 bpm Height: 6'1" Respiratory Rate: 28 bpm SpO2: 93% Tempera ture: 35.8 (C) / 96.4 (F) Weight: 307 lbs 05/14/2016 Blood Pressure 1: 146/90 Code: 8480-6 BMI: 41.2 Code: 03317-6 Heart Rate 1: 68 bpm Height: 6'1" Respiratory Rate: 26 bpm Temperature: 36 .8 (C) / 98.2 (F) Weight: 312 lbs 04/29/2016 Blood Pressure 1: 152/90 Code: 8480-6 BMI: 41.0 Code: 76223-9 Heart Rate 1: 68 bpm Height: 6'1" Respiratory Rate: 26 bpm SpO2: 94% Tempera ture: 36.1 (C) / 96.9 (F) Weight: 311 lbs 04/22/2016 Blood Pressure 1: 152/94 Code: 8480-6 BMI: 40.9 Code: 92265-3 Heart Rate 1: 68 bpm Height: 6'1" Respiratory Rate: 24 bpm SpO2: 94% Tempera ture: 36.2 (C) / 97.2 (F) Weight: 310 lbs 04/01/2016 Blood Pressure 1: 156/78 Code: 8480-6 BMI: 40.6 Code: 96137-0 Heart Rate 1: 84 bpm Height: 6'1" Respiratory Rate: 22 bpm SpO2: 95% Tempera ture: 37.1 (C) / 98.7 (F) Weight: 308 lbs 11/30/2015 Blood Pressure 1: 142/80 Code: 8480-6 BMI: 40.5 Code: 30609-8 Heart Rate 1: 88 bpm Height: 6'1" Respiratory Rate: 22 bpm Temperature: 36 .2 (C) / 97.2 (F) Weight: 307 lbs 08/29/2015 Blood Pressure 1: 132/70 Code: 8480-6 BMI: 40.0 Code: 18133-9 Heart Rate 1: 76 bpm Height: 6'1" Respiratory Rate: 24 bpm SpO2: 96% Tempera ture: 36.7 (C) / 98.0 (F) Weight: 303 lbs 08/14/2015 Blood Pressure 1: 126/80 Code: 8480-6 BMI: 39.4 Code: 28716-2 Heart Rate 1: 92 bpm Height: 6'1" Respiratory Rate: 24 bpm SpO2: 94% Tempera ture: 37.8 (C) / 100.0 (F) Weight: 299 lbs 08/09/2015 Blood Pressure 1: 146/82 Code: 8480-6 Heart Rate 1: 82 bpm Respiratory Rate: 22 bpm SpO2: 93% Temperature: 35.9 (C) / 96.6 (F) We ight: 310 lbs 05/22/2015 Blood Pressure 1: 156/76 Code: 8480-6 BMI: 41.0 Code: 87594-4 Heart Rate 1: 100 bpm Height: 6'1" Respiratory Rate: 22 bpm Temperature: 37 .2 (C) / 98.9 (F) Weight: 311 lbs 02/13/2015 Blood Pressure 1: 166/90 Code: 8480-6 BMI: 41.2 Code: 41211-9 Heart Rate 1: 72 bpm Height: 6'1" Respiratory Rate: 24 bpm SpO2: 93% Tempera ture: 36.9 (C) / 98.5 (F) Weight: 312 lbs 11/07/2014 Blood Pressure 1: 134/70 Code: 8480-6 BMI: 40.5 Code: 06034-8 Heart Rate 1: 76 bpm Height: 6'1" Respiratory Rate: 24 bpm Temperature: 36 .9 (C) / 98.4 (F) Weight: 307 lbs 10/04/2014 Blood Pressure 1: 144/86 Code: 8480-6 BMI: 40.1 Code: 16718-2 Heart Rate 1: 76 bpm Height: 6'1" Respiratory Rate: 28 bpm Temperature: 36 .6 (C) / 97.9 (F) Weight: 304 lbs 09/22/2014 Blood Pressure 1: 142/80 Code: 8480-6 BMI: 40.0 Code: 02962-0 Heart Rate 1: 80 bpm Height: 6'1" Respiratory Rate: 22 bpm SpO2: 96% Tempera ture: 36.6 (C) / 97.8 (F) Weight: 303 lbs 09/21/2014 Blood Pressure 1: 160/66 Code: 8480-6 BMI: 40.0 Code: 23952-1 Heart Rate 1: 90 bpm Height: 6'1" Respiratory Rate: 26 bpm SpO2: 94% Tempera ture: 35.7 (C) / 96.2 (F) Weight: 303 lbs 06/28/2014 Blood Pressure 1: 132/80 Code: 8480-6 BMI: 41.0 Code: 31529-1 Heart Rate 1: 64 bpm Height: 6' Respiratory Rate: 20 bpm Temperature: 36 .7 (C) / 98.0 (F) Weight: 302 lbs 06/10/2014 Blood Pressure 1: 152/70 Code: 8480-6 BMI: 41.1 Code: 49137-0 Heart Rate 1: 76 bpm Height: 6' Respiratory Rate: 20 bpm Temperature: 36 .6 (C) / 97.8 (F) Weight: 303 lbs 03/29/2014 Blood Pressure 1: 132/78 Code: 8480-6 BMI: 40.6 Code: 44048-5 Heart Rate 1: 84 bpm Height: 6' Respiratory Rate: 22 bpm Temperature: 37 .1 (C) / 98.8 (F) Weight: 299 lbs 11/30/2013 Blood Pressure 1: 136/84 Code: 8480-6 BMI: 39.2 Code: 10714-4 Heart Rate 1: 76 bpm Height: 6' Respiratory Rate: 20 bpm Temperature: 36 .8 (C) / 98.2 (F) Weight: 289 lbs 08/03/2013 Blood Pressure 1: 144/80 Code: 8480-6 Heart Rate 1: 86 bpm Respiratory Rate: 20 bpm Temperature: 36.6 (C) / 97.8 (F) Weight: 296 lbs 04/06/2013 Blood Pressure 1: 142/90 Code: 8480-6 BMI: 40.3 Code: 63551-2 Heart Rate 1: 88 bpm Height: 6' Respiratory Rate: 20 bpm Temperature: 36 .6 (C) / 97.8 (F) Weight: 297 lbs 12/01/2012 Blood Pressure 1: 124/78 Code: 8480-6 BMI: 38.7 Code: 60583-7 Heart Rate 1: 76 bpm Height: 6' Respiratory Rate: 20 bpm Temperature: 37 .2 (C) / 98.9 (F) Weight: 285 lbs 08/04/2012 Blood Pressure 1: 128/80 Code: 8480-6 BMI: 38.2 Code: 77899-9 Heart Rate 1: 76 bpm Height: 6' Respiratory Rate: 20 bpm Temperature: 37 .0 (C) / 98.6 (F) Weight: 282 lbs 05/29/2012 Blood Pressure 1: 138/78 Code: 8480-6 BMI: 36.6 Code: 58214-3 Heart Rate 1: 66 bpm Height: 6' Temperature: 36.7 (C) / 98.1 (F) Weight: 270 lbs 05/25/2012 Blood Pressure 1: 128/72 Code: 8480-6 BMI: 39.9 Code: 02570-3 Heart Rate 1: 74 bpm Height: 6' Temperature: 36.1 (C) / 97.0 (F) Weight: 294 lbs 04/07/2012 Blood Pressure 1: 124/76 Code: 8480-6 BMI: 39.9 Code: 49710-5 Heart Rate 1: 72 bpm Height: 6' Respiratory Rate: 20 bpm Temperature: 36 .9 (C) / 98.5 (F) Weight: 294 lbs 12/16/2011 Blood Pressure 1: 128/80 Code: 8480-6 BMI: 40.8 Code: 67500-2 Heart Rate 1: 74 bpm Height: 6' Temperature: 36.6 (C) / 97.8 (F) Weight: 301 lbs 12/03/2011 Blood Pressure 1: 132/76 Code: 8480-6 BMI: 40.8 Code: 62876-7 Heart Rate 1: 68 bpm Height: 6' Respiratory Rate: 20 bpm Temperature: 36 .8 (C) / 98.2 (F) Weight: 301 lbs 08/29/2011 Blood Pressure 1: 140/68 Code: 8480-6 BMI: 40.8 Code: 52011-2 Heart Rate 1: 80 bpm Height: 6' Respiratory Rate: 20 bpm Temperature: 36 .4 (C) / 97.6 (F) Weight: 301 lbs 05/30/2011 Blood Pressure 1: 134/82 Code: 8480-6 BMI: 41.5 Code: 12050-9 Heart Rate 1: 76 bpm Height: 6' [...] 1: 126/72 Code: 8480-6 BMI: 41.2 Code: 42451-1 Heart Rate 1: 76 bpm Height: 6' [...] 1: 152/90 Code: 8480-6 BMI: 37.7 Code: 24435-6 Heart Rate 1: 92 bpm Height: 6'1" [...] with diabetic neuropathy, unspecified[ICD10: E11.40] Neela HYMAN [employer] CPT-4: 25389 12/01/2019 ([id number]) OFFICE/OUTPATIENT VISIT EST Diagnosis: Chronic obstructive pulmonary disease, unspecified[ICD10: J44.9] Diagnosis: Essential (primary) hypertension[ICD10: I10] Diagnosis: Mixed hyperlipidemia[ICD10: E78.2] Diagnosis: Type 2 diabetes mellitus with hyperglycemia[ICD10: E11.65] Neela [facility] [employer] CPT-4: 88730 08/30/2019 ([id number]) OFFICE/OUTPATIENT VISIT EST Diagnosis: Chronic obstructive pulmonary disease with (acute) exacerbation[ICD10: J44.1] Neela [facility] [employer] CPT- 4: 66479 08/10/2019 ([id number]) OFFICE/OUTPATIENT VISIT EST Diagnosis: Sore on toe[ICD10: L98.9] [facility] CPT-4: 32750 07/06/2019 ([id number]) OFFICE/OUTPATIENT VISIT EST Diagnosis: Advanced chronic obstructive pulmonary disease[ICD10: J44.9] 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] [facility] 57446 05/10/2019 ([id number]) OFFICE/OUTPATIENT VISIT EST Diagnosis: Chronic obstructive pulmonary disease with (acute) exacerbation[ICD10: J44.1] Diagnosis: Hypokalemia[ICD10: E87.6] 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] [facility]: 83662 03/29/2019 ([id number]) NURSE/OUTPATIENT VISIT EST Diagnosis: PNEUMOCOCCAL VACCINE[ICD10: Z23] [facility] 39361 03/04/2019 ([id number]) OFFICE/OUTPATIENT VISIT EST Diagnosis: Chronic obstructive pulmonary disease with (acute) exacerbation[ICD10: J44.1] Diagnosis: Other nonspecific abnormal finding of lung field[ICD10: R91.8] [facility]: 32178 01/05/2019 ([id number]) OFFICE/OUTPATIENT VISIT EST Diagnosis: Solitary pulmonary nodule[ICD10: R91.1] 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] Diagnosis: Tinea corporis[ICD10: B35.4] [facility]: 46711 12/09/2018 ([id number]) OFFICE/OUTPATIENT VISIT EST Diagnosis: COUGH[ICD10: R05] Diagnosis: Chronic obstructive pulmonary disease, unspecified[ICD10: J44.9] Diagnosis: Other disorders of lung[ICD10: J98.4] Diagnosis: Other nonspecific abnormal finding of lung field[ICD10: R91.8] [facility]: 71138 11/24/2018 ([id number]) OFFICE/OUTPATIENT VISIT EST Diagnosis: Pneumonia, unspecified organism[ICD10: J18.9] Amita HYMAN [employer] [facility] CPT-4: 57153 09/16/2018 ([id number]) OFFICE/OUTPATIENT VISIT EST Diagnosis: Pneumonia, unspecified organism[ICD10: J18.9] Neela HYMAN [employer] [facility] CPT-4: 63084 09/03/2018 ([id number]) OFFICE/OUTPATIENT VISIT EST Diagnosis: Personal history of pneumonia (recurrent)[ICD10: Z87.01] Diagnosis: Cough[ICD10: R05] Diagnosis: Essential (primary) hypertension[ICD10: I10] Diagnosis: Type 2 diabetes mellitus with hyperglycemia[ICD10: E11.65] Amita HYMAN [employer] [facility] CPT-4: 77192 08/27/2018 OFFICE/OUTPATIENT VISIT EST Diagnosis: Pneumonia, unspecified organism[ICD10: J18.9] Diagnosis: Chronic obstructive pulmonary disease with (acute) exacerbation[ICD10: J44.1] Diagnosis: Other specified symptoms and signs involving the circulatory and respiratory systems[ICD10: R09.89] Diagnosis: Essential (primary) hypertension[ICD10: I10] Amita HYMAN [employer] [facility] CPT-4: 99927 08/13/2018 OFFICE/OUTPATIENT VISIT EST Diagnosis: Pneumonia, unspecified organism[ICD10: J18.9] Diagnosis: Other specified symptoms and signs involving the circulatory and respiratory systems[ICD10: R09.89] Amitacalvin HYMAN [employer] [facility] CPT-4: 33622 08/11/2018 ([id number]) OFFICE/OUTPATIENT VISIT EST Diagnosis: Dyspnea, unspecified[ICD10: R06.00] Diagnosis: Chronic obstructive pulmonary disease with (acute) exacerbation[ICD10: J44.1] Diagnosis: Pneumonia, unspecified organism[ICD10: J18.9] Amitacalvin HYMAN [employer] [facility] CPT-4: 16290 07/16/2018 ([id number]) OFFICE/OUTPATIENT VISIT EST Diagnosis: Acute bronchitis due to other specified organisms[ICD10: J20.8] Diagnosis: Cough[ICD10: R05] Amita Santiago HYMAN [employer] [facility] T-4: 76519 07/13/2018 ([id number]) OFFICE/OUTPATIENT VISIT EST Diagnosis: Essential (primary) hypertension[ICD10: I10] Diagnosis: Chronic obstructive pulmonary disease, unspecified[ICD10: J44.9] Diagnosis: Type 2 diabetes mellitus with hyperglycemia[ICD10: E11.65] Diagnosis: Mixed hyperlipidemia[ICD10: E78.2] Neela Sergemelany FRIEND ASHER HYMAN [employer] [facility] CPT-4: 49330 06/03/2018 ([id number]) OFFICE/OUTPATIENT VISIT EST Diagnosis: Chronic obstructive pulmonary disease, unspecified[ICD10: J44.9] Gely HYMAN [employer] [facility] CPT-4: 96477 05/04/2018 ([id number]) OFFICE/OUTPATIENT VISIT EST Diagnosis: Essential (primary) hypertension[ICD10: I10] Diagnosis: Localized edema[ICD10: R60.0] Neela Yenni MIRZALINE Octavio HYMAN [employer] [facility] CPT-4: 65758 03/03/2018 ([id number]) OFFICE/OUTPATIENT VISIT EST Diagnosis: Localized edema[ICD10: R60.0] Neela MIRZALINE Octavio HY[facility] [employer] [facility] CPT-4: 10032 02/17/2018 ([id number]) OFFICE/OUTPATIENT VISIT EST Diagnosis: FLU VACCINE[ICD10: Z23] Diagnosis: PNEUMOCOCCAL VACCINE[ICD10: Z23] Diagnosis: Type 2 diabetes mellitus without complications[ICD10: E11.9] Diagnosis: Mixed hyperlipidemia[ICD10: E78.2] Diagnosis: Essential (primary) hypertension[ICD10: I10] Diagnosis: Localized edema[ICD10: R60.0] Diagnosis: Chronic obstructive pulmonary disease, unspecified[ICD10: J44.9] Neela MIRZALINE Octavio HY[facility] [employer] [facility] CPT-4: 46729 02/10/2018 ([id number]) OFFICE/OUTPATIENT VISIT EST Diagnosis: Type 2 diabetes mellitus with hyperglycemia[ICD10: E11.65] Diagnosis: Mixed hyperlipidemia[ICD10: E78.2] Diagnosis: Essential (primary) hypertension[ICD10: I10] Diagnosis: Chronic obstructive pulmonary disease, unspecified[ICD10: J44.9] Diagnosis: Cutaneous abscess of back [any part, except buttock][ICD10: L02.212] Neela HYMAN [employer] [facility] CPT-4: 22583 11/05/2017 ([id number]) OFFICE/OUTPATIENT VISIT EST Diagnosis: Allergic urticaria[ICD10: L50.0] Gely HYMAN DO [facility] CPT-4: 06106 09/09/2017 ([id number]) OFFICE/OUTPATIENT VISIT EST Diagnosis: Generalized enlarged lymph nodes[ICD10: R59.1] Diagnosis: Acute gastritis without bleeding[ICD10: K29.00] Gely HYMAN DO [facility] CPT-4: 39103 08/07/2017 ([id number]) OFFICE/OUTPATIENT VISIT EST Diagnosis: Type 2 diabetes mellitus without complications[ICD10: E11.9] Diagnosis: Mixed hyperlipidemia[ICD10: E78.2] Diagnosis: Essential (primary) hypertension[ICD10: I10] Neela HYMAN [employer] [facility] CPT-4: 57828 08/04/2017 ([id number]) OFFICE/OUTPATIENT VISIT EST Diagnosis: Zoster without complications[ICD10: B02.9] Diagnosis: Acute sialoadenitis[ICD10: K11.21] Gely HYMAN [employer] [facility] CPT-4: 70957 06/04/2017 OFFICE/OUTPATIENT VISIT EST Diagnosis: Zoster without complications[ICD10: B02.9] Diagnosis: Acute sialoadenitis[ICD10: K11.21] Gely HYMAN [employer] [facility] CPT-4: 32412 06/02/2017 ([id number]) OFFICE/OUTPATIENT VISIT EST Diagnosis: Type 2 diabetes mellitus without complications[ICD10: E11.9] Diagnosis: Mixed hyperlipidemia[ICD10: E78.2] Diagnosis: Essential (primary) hypertension[ICD10: I10] Diagnosis: Chronic obstructive pulmonary disease, unspecified[ICD10: J44.9] Neela HYMAN DO [facility] CPT-4: 31323 05/05/2017 OFFICE/OUTPATIENT VISIT EST Diagnosis: Chronic obstructive pulmonary disease with acute lower respiratory infection[ICD10: J44.0] Diagnosis: Impacted cerumen, bilateral[ICD10: H61.23] Gely HYMAN [facility] CPT-4: 53121 04/10/2017 ([id number]) OFFICE/OUTPATIENT VISIT EST Diagnosis: FLU VACCINE[ICD10: Z23] Neela BUI [facility] CPT-4: 70391 03/28/2017 ([id number]) OFFICE/OUTPATIENT VISIT EST Diagnosis: Type 2 diabetes mellitus without complications[ICD10: E11.9] Diagnosis: Mixed hyperlipidemia[ICD10: E78.2] Diagnosis: Essential (primary) hypertension[ICD10: I10] Diagnosis: Chronic obstructive pulmonary disease, unspecified[ICD10: J44.9] Neela HYMAN [facility] CPT-4: 59654 02/03/2017 ([id number]) OFFICE/OUTPATIENT VISIT EST Diagnosis: Type 2 diabetes mellitus with hyperglycemia[ICD10: E11.65] Diagnosis: Mixed hyperlipidemia[ICD10: E78.2] Diagnosis: Essential (primary) hypertension[ICD10: I10] Diagnosis: Chronic obstructive pulmonary disease, unspecified[ICD10: J44.9] Neela HYMAN [employer] [facility] CPT-4: 93585 10/30/2016 ([id number]) NO CHARGE Diagnosis: Acute bronchitis, unspecified[ICD10: J20.9] Sammi HYMAN [facility] CPT-4: 97069 08/30/2016 ([id number]) OFFICE/OUTPATIENT VISIT EST Diagnosis: Acute bronchitis, unspecified[ICD10: J20.9] Diagnosis: Other seasonal allergic rhinitis[ICD10: J30.2] Sammi HYMAN [facility] CPT-4: 70043 08/27/2016 ([id number]) OFFICE/OUTPATIENT VISIT EST Diagnosis: Type 2 diabetes mellitus without complications[ICD10: E11.9] Diagnosis: Mixed hyperlipidemia[ICD10: E78.2] Diagnosis: Essential (primary) hypertension[ICD10: I10] Neela HYMAN [facility] CPT-4: 24126 07/02/2016 ([id number]) OFFICE/OUTPATIENT VISIT EST Diagnosis: Acute bronchitis, unspecified[ICD10: J20.9] Sammi HYMAN DO [facility] CPT-4: 25440 06/14/2016 ([id number]) OFFICE/OUTPATIENT VISIT EST Diagnosis: Acute bronchitis, unspecified[ICD10: J20.9] Sammi HYMAN DO [facility] CPT-4: 97143 06/13/2016 ([id number]) OFFICE/OUTPATIENT VISIT EST Diagnosis: Essential (primary) hypertension[ICD10: I10] Neela HYMAN DO [facility] CPT-4: 41432 05/14/2016 ([id number]) OFFICE/OUTPATIENT VISIT EST Diagnosis: Essential (primary) hypertension[ICD10: I10] Neela HYMAN DO [facility] CPT-4: 50668 04/29/2016 ([id number]) OFFICE/OUTPATIENT VISIT EST Diagnosis: Unspecified abdominal pain[ICD10: R10.9] Diagnosis: Left lower quadrant pain[ICD10: R10.32] Diagnosis: Left upper quadrant pain[ICD10: R10.12] Diagnosis: Essential (primary) hypertension[ICD10: I10] Neela HYMAN DO [facility] CPT-4: 17646 04/22/2016 ([id number]) OFFICE/OUTPATIENT VISIT EST Diagnosis: Type 2 diabetes mellitus without complications[ICD10: E11.9] Diagnosis: Mixed hyperlipidemia[ICD10: E78.2] Diagnosis: Essential (primary) hypertension[ICD10: I10] Neela HYMAN DO [facility] CPT-4: 42568 04/01/2016 ([id number]) OFFICE/OUTPATIENT VISIT EST Diagnosis: Type 2 diabetes mellitus with hyperglycemia[ICD10: E11.65] Diagnosis: Mixed hyperlipidemia[ICD10: E78.2] Diagnosis: Essential (primary) hypertension[ICD10: I10] Neela HYMAN DO [facility] CPT-4: 87110 11/30/2015 ([id number]) OFFICE/OUTPATIENT VISIT EST Diagnosis: Type 2 diabetes mellitus with diabetic neuropathy, unspecified[ICD10: E11.40] Diagnosis: Essential (primary) hypertension[ICD10: I10] Diagnosis: Mixed hyperlipidemia[ICD10: E78.2] Neela STERLING Octavio HYMAN DO [facility] CPT-4: 43509 08/29/2015 ([id number]) OFFICE/OUTPATIENT VISIT EST Diagnosis: COUGH[ICD10: R05] Diagnosis: Wheezing[ICD10: R06.2] Diagnosis: Type 2 diabetes mellitus with diabetic neuropathy, unspecified[ICD10: E11.40] Neela MURILLO JulissaMendez YENNI ARTHUR [facility] CPT-4: 03725 08/14/2015 ([id number]) OFFICE/OUTPATIENT VISIT EST Diagnosis: Other seasonal allergic rhinitis[ICD10: J30.2] Diagnosis: Dyspnea, unspecified[ICD10: R06.00] Diagnosis: Wheezing[ICD10: R06.2] Sammi Najera NEELA Cunningham YENNI ARTHUR [facility] CPT-4: 95556 08/09/2015 ([id number]) OFFICE/OUTPATIENT VISIT EST Diagnosis: Essential (primary) hypertension[ICD10: I10] Diagnosis: Type 2 diabetes mellitus with hyperglycemia[ICD10: E11.65] Diagnosis: Mixed hyperlipidemia[ICD10: E78.2] Neela STERLING Octavio HYMAN [employer] [facility] CPT-4: 35220 05/22/2015 ([id number]) OFFICE/OUTPATIENT VISIT EST Diagnosis: 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] Diagnosis: - I - HYPERTENSION[ICD9: 401.9] Diagnosis: - I - HYPERLIPIDEMIA NEC/NOS[ICD9: 272.4] Diagnosis: Left hand paresthesia[ICD9: 782.0] Neela STERLING Octavio HYMAN [employer] [facility] CPT-4: 20660 02/13/2015 ([id number]) OFFICE/OUTPATIENT VISIT EST Diagnosis: HYPERLIPIDEMIA NEC/NOS[ICD9: 272.4] Diagnosis: 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] Neela MURILLO JulissaMendez YENNI [employer] [facility] CPT-4: 82907 11/07/2014 ([id number]) OFFICE/OUTPATIENT VISIT EST Diagnosis: ALLERGIC RHINITIS[ICD9: 477.9] Diagnosis: WHEEZING[ICD9: 786.07] Neela BADILLO [facility] CPT-4: 74945 10/04/2014 ([id number]) OFFICE/OUTPATIENT VISIT EST Diagnosis: BRONCHITIS, ACUTE[ICD9: 466.0] Diagnosis: WHEEZING[ICD9: 786.07] Loren Duarte [facility] CPT-4: 82683 09/22/2014 ([id number]) OFFICE/OUTPATIENT VISIT EST Diagnosis: DYSPNEA[ICD9: 786.09] Diagnosis: WHEEZING[ICD9: 786.07] Diagnosis: Arrhythmia[ICD9: 427.9] Loren BUI [facility] CPT-4: 04124 09/21/2014 ([id number]) OFFICE/OUTPATIENT VISIT EST Diagnosis: 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, 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] Diagnosis: - I - HYPERLIPIDEMIA NEC/NOS[ICD9: 272.4] Diagnosis: - I - HYPERTENSION[ICD9: 401.9] Neela Cunningham [facility] CPT-4: 83312 06/28/2014 OFFICE/OUTPATIENT VISIT EST Diagnosis: SINUSITIS, ACUTE[ICD9: 461.9] Diagnosis: OTITIS MEDIA NOS[ICD9: 382.9] Sarah Cunningham [facility] CPT-4: 48268 06/10/2014 ([id number]) OFFICE/OUTPATIENT VISIT EST Diagnosis: 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] Diagnosis: - I - HYPERLIPIDEMIA NEC/NOS[ICD9: 272.4] Diagnosis: - I - HYPERTENSION[ICD9: 401.9] Neela Cunningham [facility] CPT-4: 52372 03/29/2014 ([id number]) OFFICE/OUTPATIENT VISIT EST Diagnosis: 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] Diagnosis: - I - HYPERTENSION[ICD9: 401.9] Diagnosis: - I - HYPERLIPIDEMIA NEC/NOS[ICD9: 272.4] Diagnosis: Hand lesion[ICD9: 709.9] Neela MURILLO JulissaMendez [facility] CPT-4: 73373 11/30/2013 ([id number]) OFFICE/OUTPATIENT VISIT EST Diagnosis: 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] Diagnosis: HYPERLIPIDEMIA NEC/NOS[ICD9: 272.4] Diagnosis: HYPERTENSION[ICD9: 401.9] Neela VASQUEZ [facility] CPT-4: 39438 08/03/2013 ([id number]) OFFICE/OUTPATIENT VISIT EST Diagnosis: 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, 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] Diagnosis: HYPERTENSION[ICD9: 401.9] Diagnosis: HYPERLIPIDEMIA NEC/NOS[ICD9: 272.4] Neela HYMAN [facility] CPT-4: 00295 04/06/2013 ([id number]) OFFICE/OUTPATIENT VISIT EST Diagnosis: 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] Diagnosis: HYPERLIPIDEMIA NEC/NOS[ICD9: 272.4] Diagnosis: HYPERTENSION[ICD9: 401.9] [facility]: 18730 12/01/2012 ([id number]) OFFICE/OUTPATIENT VISIT EST Diagnosis: 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] Diagnosis: HYPERTENSION[ICD9: 401.9] Diagnosis: HYPERLIPIDEMIA NEC/NOS[ICD9: 272.4] Neela HYMAN [facility] CPT-4: 49162 08/04/2012 ([id number]) OFFICE/OUTPATIENT VISIT EST Diagnosis: URINARY FREQUENCY[ICD9: 788.41] Neela Sergegemmainna HYMAN [facility] CPT-4: 92118 06/01/2012 OFFICE/OUTPATIENT VISIT EST Diagnosis: Agitation[ICD9: 307.9] Diagnosis: Frequent urination[ICD9: 788.41] Janet Jean Baptiste NEELA Octavio HYMAN [facility] CPT-4: 53557 05/29/2012 OFFICE/OUTPATIENT VISIT EST Diagnosis: SINUSITIS, ACUTE[ICD9: 461.9] Diagnosis: OTALGIA[ICD9: 388.70] Neela Sergegemmainna MIRZANEELA Octavio HYMAN [facility] CPT-4: 74560 05/25/2012 OFFICE/OUTPATIENT VISIT EST Diagnosis: 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, 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] Diagnosis: HYPERTENSION[ICD9: 401.9] Diagnosis: HYPERLIPIDEMIA NEC/NOS[ICD9: 272.4] Neela GREGORIO SMendez ORENDER DO [facility] CPT-4: 14334 04/07/2012 OFFICE/OUTPATIENT VISIT EST Diagnosis: FINGER INJURY[ICD9: 959.5] Janet Jean Baptiste NEELA Cunningham AXEL ARPIT [facility] CPT-4: 10916 12/16/2011 ([id number]) OFFICE/OUTPATIENT VISIT EST Diagnosis: 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, 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] Diagnosis: HYPERTENSION[ICD9: 401.9] Diagnosis: HYPERLIPIDEMIA NEC/NOS[ICD9: 272.4] Neela GREGORIO SMendez ORENDER [facility] CPT-4: 01729 12/03/2011 ([id number]) OFFICE/OUTPATIENT VISIT EST Diagnosis: 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] Diagnosis: HYPERLIPIDEMIA NEC/NOS[ICD9: 272.4] Diagnosis: HYPERTENSION[ICD9: 401.9] Neela Cunningham ORE NDER DO [facility] CPT-4: 74013 08/29/2011 OFFICE/OUTPATIENT VISIT EST Diagnosis: 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] Diagnosis: HYPERLIPIDEMIA NEC/NOS[ICD9: 272.4] Diagnosis: HYPERTENSION[ICD9: 401.9] Neela MURILLO SMendez [facility] CPT-4: 76614 05/30/2011 OFFICE/OUTPATIENT VISIT EST Diagnosis: SKIN SENSATION DISTURB[ICD9: 782.0] Neela GREGORIO SMendez [facility] CPT-4: 74768 01/29/2011 OFFICE/OUTPATIENT VISIT EST Diagnosis: SKIN SENSATION DISTURB[ICD9: 782.0] Neela GREGORIO SMendez [facility] CPT-4: 29944 01/14/2011 OFFICE/OUTPATIENT VISIT EST Neela MURILLO SMendez SERGE NDER DO [facility] CPT- 4: 57663 01/01/2011 OFFICE/OUTPATIENT VISIT EST Neela Cunningham [facility] CPT- 4: 53455 11/29/2010 ([id number]) OFFICE/OUTPATIENT VISIT [facility] CPT-4: 00917 08/28/2010 ([id number]) OFFICE/OUTPATIENT VISIT, EST Neela [facility] CPT-4: 71800 06/05/2010 ([id number]) OFFICE/OUTPATIENT VISIT, EST Neela [facility] CPT-4: 93292 02/05/2010 ([id number]) OFFICE/OUTPATIENT VISIT, EST Neela [facility] CPT-4: 35949 10/09/2009 ([id number]) OFFICE/OUTPATIENT VISIT, [facility] CPT-4: 40019 08/22/2009 Plan of Care Planned Activity Notes [...] J44.9 08/30/2019 Appointment: [facility] [facility] [facility] 08/30/2019 Visit Diagnosis Plan: Chronic [...] : J44.1 08/10/2019 Appointment: Neela Hyman WPtel: [address] [place], [place] [phone] ACUTE ILLNESS 08/10/2019 Visit Diagnosis Plan: Sore on toe Discussion: Keep farhat an/dry Keflex Notify if worsens ICD-9 : 709.9 ICD-10 : L98.9 07/06/2019 Appointment: Neela Hyman WPtel: [address] [place] [address] ACUTE ILLNESS 07/06/2019 Patient Education: Abdoulaye [employer] Blue [id number] https://www.FastFig/Boundary/resources/getResource/61/4vn171qg-15a7-2m79-07 Completed 07/06/2019 Visit Diagnosis Plan: Lymphoma involving lung Discussi on: Doing weekly lab and chemo ICD-9 : 202.82 ICD-10 : C85.99 05/10/2019 Visit Diagnosis Plan: Advanced chronic obstructive pul monary disease Discussion: Continue oxygen and pulmonary rehab Follow Up: 3 months ICD-9 : 496 ICD-10 : J44.9 05/10/2019 Appointment: Neela Hyman WPtel: [address] [place], [place] [phone] FOLLOW UP 05/10/2019 Appointment: Neela Hymantel: [address] [place], [place] [phone] he called 04/14/19-- he was at physical [...] : C85.99 03/29/2019 Appointment: Neela Hyman WPtel: [address] [place], [place] [phone] Hospital Follow Up 03/29/2019 Appointment: Neela Hyman WPtel: [address] [place], [place] [phone] [place] INJECTION 03/04/2019 Visit Diagnosis Plan: Chronic obstructiv e pulmonary disease with (acute) exacerbation Discussion: Increase SVNS with duoneb to QID Prednisone taper ICD-9 : 491.21 ICD-10 : J44.1 01/05/2019 Visit Diagnosis Plan: Other nonspecific abnormal findi ng of lung field Discussion: Referral to pulmonology--will likely need bronchoscopy--path results discussed ICD-9 : 786.6 ICD-10 : R91.8 01/05/2019 Appointment: Neela Hyman WPtel: [address] [place], [place] [phone] [place] FOLLOW UP 01/05/2019 Patient Education: prednisone- [employer] Coupon [phone] https://www.FastFig/Boundary/resources/getResource/61/q1jt2479-911s-6i38-rj Completed 01/05/2019 Care Plan: Referral Order SNOMED-CT : 30 [id number] Pending 01/05/2019 Appointment: Neela Hyman WPtel: [address] [place], [place] [address] [place] CANCELED 12/21/2018 Visit Diagnosis Plan: Solitary pulmonary nodule Discus esmer: CT guided needle biopsy of RUL lung mass ICD-9 : 793.11 ICD-10 : R91.1 12/09/2018 Visit Diagnosis Plan: Tinea corporis Discussion: Diflu can--hold simvastatin and fenofibrate while taking ICD-9 : 110.5 ICD-10 : B35.4 12/09/2018 Appointment: Neela Hyman WPtel: [address] [place] [address] [place] FOLLOW UP 12/09/2018 Appointment: Gely Harp [address] [address] [place] NO SHOW 12/01/2018 Visit Diagnosis Plan: [...] : J98.4 11/24/2018 Appointment: Neela Hyman WPtel: [address] [place] [address] FOLLOW UP 11/24/2018 Care Plan: PET IMAGE FULL BODY LOINC : 4 2711-2 Pending 11/24/2018 Appointment: Neela Hyman WPtel: [address] [place], [place] [phone] [place] Consult 09/21/2018 Visit Diagnosis Plan: Pneumonia, unspecified organism Discussion: Patient clinically improved. Recent CT scan from 09/07 showed unresolved right upper lobe pneumonia. Finished another 7 days of levaquin. Will repeat CBC early next week. Order sent with patient to get done at [facility]. FU CT recommended in 4 weeks. Patient states understanding. ICD-9 : 486 ICD-10 : J18.9 09/16/2018 Appointment: Amita Henderson [address] [facility] FOLLOW UP 09/16/2018 Visit Diagnosis Plan: Pneumonia, unspecified organism Discussion: Clinically patient feels and looks much better but need CT scan of chest due to ongoing round pneumonia in association with his known lymphoma ICD-9 : 486 ICD-10 : J18.9 09/03/2018 Appointment: Nelea Hyman WPtel: [address] [id number] FOLLOW UP 09/03/2018 Care Plan: CT THORAX [...] ICD-10 : I10 08/27/2018 Appointment: Amita Henderson [address] [place], [place] [address] FOLLOW UP 08/27/2018 Visit Diagnosis Plan: Pneumonia, [...] ICD-10 : R09.89 08/13/2018 Appointment: Amita Henderson [facility] [employer] [id number] [facility] FOLLOW UP 08/13/2018 Appointment: Amita Henderson [facility] Cashually [id number] CANCELED 08/13/2018 Patient Education: prednisone- [employer] Coupon [phone] https://www.FastFig/sampleInsight Genetics/resources/getResource/61/mv34nn5a-8g83-4pa2-8i Completed 08/13/2018 Visit Diagnosis Plan: Other specified [...] ICD-10 : J18.9 08/11/2018 Appointment: Amita Henderson [facility] [employer] [id number] ACUTE ILLNESS 08/11/2018 Care Plan: CHEST X-RAY 2VW FRONTAL&LATL LOINC : 11042-6 Pending 07/20/2018 Visit Diagnosis Plan: Dyspnea, unspecified Discussion: CXR- to be completed at the hospital. Will call with results and any adjustments in plan. Solumedrol 125 administered in clinic Prednisone 20 mg BID x 5 days- start tomorrow ICD-9 : 786.09 ICD-10 : R06.00 07/16/2018 Appointment: Amita Henderson [address] [place], [place] [address] ACUTE ILLNESS 07/16/2018 Patient Education: prednisone- [employer] Coupon [phone] https://www.FastFig/samplemd/resources/getResource/61/93l3n5ah-pb89-3lm6-v3 Completed 07/16/2018 Visit Diagnosis Plan: Acute bronchitis due to other sp ecified organisms Discussion: Kenalog 40 mg IM administered in clinic. Doxycycline called into [facility]. Take as directed. Continue nebulizer and Trelegy. Follow up if symptoms are not improving with treatment regimen. Patient states understanding of all instruction. ICD-9 : 466.0 ICD-10 : J20.8 07/13/2018 Appointment: Amita Henderson [address] [place], [place] [address] ACUTE ILLNESS 07/13/2018 Patient Education: doxycycline hyclate- [employer] Cou saritha [id number] https://www.Boundary.[employer]/Boundary/resources/getResource/61/4e457h49-7k8f-6241-5q Completed 07/13/2018 Care Plan: [place] : [address]-0 Pending 07/13/2018 Care Plan: CBC Pending 07/13/2018 Care Plan: A1C HPLC LOINC : 21257-4 Pending 07/13/2018 Visit Diagnosis Plan: Mixed hyperlipidemia [...] I10 06/03/2018 Appointment: Neela [facility]yman [facility]Ptel[phone] [facility] [facility] 06/03/2018 Visit Diagnosis Plan: Chronic [...] ICD-10 : J44.9 05/04/2018 Appointment: Gely Harp [address] [place], [place] [phone] ACUTE ILLNESS 05/04/2018 Visit Diagnosis Plan: Localized edema Discussion: Cont inue lasix and potassium at every other day Recheck lab and fwup in 3mos Follow Up: 3 months ICD-9 : 782.3 ICD-10 : R60.0 03/03/2018 Appointment: Neela Hyman WPtel: [address] [place], [place] [phone] FOLLOW UP 03/03/2018 Patient Education: Patient Medication Summary Completed 03/03/2018 Visit Diagnosis Plan: Localized edema Discussion: Finch ge lasix and potassium to every other day Check Chem 7 in 2 weeks and fwup ICD-9 : 782.3 ICD-10 : R60.0 02/17/2018 Appointment: Neela Hyman WPtel: [address] [place], [place] [phone] FO[facility] UP 02/17/2018 Patient Education: Patient Medication [...] : R60.0 02/10/2018 Appointment: Neela Hyman WPtel: [address] [place], [place] [phone] [place] FOLLOW UP 02/10/2018 Patient Education: Patient [...] : L02.212 11/05/2017 Appointment: Neela Hyman WPtel: [address] [place], [place] [phone] [place] FOLLOW UP 11/05/2017 Patient Education: Patient Medication Summary Completed 11/05/2017 Patient Education: Patient Medication Summary Completed 11/03/2017 Care Plan: [place] : [address]-1 Pending 11/03/2017 Care Plan: LIPID PANEL LOINC : 80276-7 Pending 11/03/2017 Care Plan: CBC Pending 11/03/2017 Care Plan: A1C HPLC LOINC : 61812-7 Pending 11/03/2017 Visit Diagnosis Plan: Allergic urticaria [...] ICD-10 : L50.0 09/09/2017 Appointment: Gely Harp [address] [place], [place] [phone] ACUTE ILLNESS 09/09/2017 Patient Education: Patient Medication [...] ICD-10 : R59.1 08/07/2017 Appointment: Gely Harp [address] [place], [place] [phone] Hospital Follow Up 08/07/2017 Patient Education: Patient Medication Summary Completed 08/07/2017 Visit Diagnosis Plan: Type 2 diabetes mellitus without complications Discussion: Accuchecks daily Lab discussed Continue current meds ICD-9 : 250.00 ICD-10 : E11.9 08/04/2017 Visit Diagnosis Plan: Essential (primary) hypertension Discussion: Increase Cardizem CD to 360mg daily ICD-9 : 401.9 ICD-10 : I10 08/04/2017 Appointment: Neela Hyman WPtel: [phone] [facility] FOLLOW UP 08/04/2017 Patient Education: Patient Medication Summary Completed 08/04/2017 Patient Education: Patient Medication Summary Completed 07/31/2017 Care Plan: [place] : [address]-2 Pending 07/31/2017 Care Plan: ASSAY THYROID STIM HORMONE Pen ding 07/31/2017 Care Plan: LIPID PANEL LOINC : 63572-5 Pending 07/31/2017 Care Plan: CBC Pending 07/31/2017 Care Plan: A1C HPLC LOINC : 01394-0 Pending 07/31/2017 Patient Education: Patient Medication Summary Completed 06/19/2017 Patient Education: Patient Medication Summary Completed 06/09/2017 Care Plan: CT SOFT TISSUE NEC[place] : [address]-3 Pending 06/09/2017 Visit Diagnosis Plan: Acute sialoadenitis [...] ICD-10 : B02.9 06/04/2017 Appointment: Gely Harp [address] [place] [address] ACUTE ILLNESS 06/04/2017 Patient Education: Patient Medication [...] ICD-10 : B02.9 06/02/2017 Appointment: Gely Harp [address] [place] [address] ACUTE ILLNESS 06/02/2017 Patient Education: Patient Medication [...] E11.9 05/05/2017 Appointment: Neela Hyman WPtel: [phone] [facility] FOLLOW UP 05/05/2017 Patient Education: Patient Medication Summary Completed 05/05/2017 Patient Education: Patient Medication Summary Completed 05/01/2017 Care Plan: A1C HPLC [facility] : 58455-3 Pending 05/01/2017 Visit Diagnosis Plan: Chronic obstructiv [...] ICD-10 : H61.23 04/10/2017 Appointment: Gely Harp [address] [place], [place] [phone] ACUTE ILLNESS 04/10/2017 Patient Education: Patient Medication Summary Completed 04/10/2017 Appointment: Neela Hyman WPtel: [phone] [facility] [place] INJECTION 03/28/2017 Patient Education: Patient Medication [...] : J44.9 02/03/2017 Appointment: Neela Hyman WPtel: [address] [place], [place] [address] [place] FOLLOW UP 02/03/2017 Patient Education: Patient Medication Summary Completed 02/03/2017 Patient Education: Patient Medication Summary Completed 01/30/2017 Care Plan: COMPREH[place] : 98763-0 Pending 01/30/2017 Care Plan: LIPID PANEL LOINC : 90450-1 Pending 01/30/2017 Care Plan: CBC Pending 01/30/2017 Care Plan: A1C HPLC LOINC : 34298-4 Pending 01/30/2017 Care Plan: ASSAY OF PSA [...] : E11.65 10/30/2016 Appointment: Neela Hyman WPtel: [facility] [facility] 10/29 lm ~sl 10/30 confirmed~sl FOLLOW UP 11/2016 Patient Education: Patient Medication Summary Completed 10/30/2016 Patient Education: Patient Medication Summary Completed 10/24/2016 Visit Diagnosis Plan: Acute bronchitis, unspecified Di scussion: Patient sounds and looks much improved Continue current regimen Keep appt with Dr Levi for Friday Follow up PRN ICD-9 : 466.0 ICD-10 : J20.9 08/30/2016 Appointment: Sammi [facility]ajera [facility] [facility] 08/29 rang and rang rang 08/30 rang [...] ICD-10 : J20.9 08/27/2016 Appointment: [facility] [facility] 08/27/2016 Patient Education: Patient Medication Summary Completed 08/27/2016 Care Plan: Referral Order SNOMED-CT : 30 [id number] Pending 08/27/2016 Visit Diagnosis Plan: Type 2 [...] : I10 07/02/2016 Appointment: Neela Hyman WPtel: [address] [place], [place] [address] 07/01 rang and rang`sl FOLLOW UP 7 Patient Education: Patient Medication Summary Completed 07/02/2016 Patient Education: Patient Medication Summary Completed 06/27/2016 Care Plan: LIPID PANEL LOINC : 70327-4 Pending 06/27/2016 Care Plan: COMPREH[place]AB[place] : 12880-2 Pending 06/27/2016 Care Plan: A1C HPLC LOINC : 38079-6 Pending 06/27/2016 Visit Diagnosis Plan: Acute bronchitis, [...] ICD-10 : J20.9 06/14/2016 Appointment: Sammi Najera [address] [place], [place] [phone] FOLLOW UP 06/14/2016 Patient Education: Patient Medication [...] ICD-10 : J20.9 06/13/2016 Appointment: Sammi Najera [address] [place], [place] [phone] ACUTE ILLNESS 06/13/2016 Patient Education: Patient Medication Summary Completed 06/13/2016 Care Plan: CHEST X-RAY 2VW FRONTAL&LATL LOINC : 26269-3 Pending 06/13/2016 Visit Plan: Increase metoprolol to 100mg po BID BP readings and BP check in 1month 05/14/2016 Appointment: Neela Hyman WPtel: [address] [place], [place] [address] 05/13 rang and rang`sl FOLLOW UP 6 Patient Education: Patient Medication Summary Completed 05/14/2016 Visit Plan: Increase metoprolol to 50mg BID BP check in 1 week f/u BP appt 2 weeks consider musculoskeletal if pain returns 04/29/2016 Appointment: Neela Hyman WPtel: [address] [place], [place] [phone] 04/25 confimred~sl FOLLOW UP 04/29/2016 Patient Education: Patient Medication Summary Completed 04/29/2016 Visit Plan: Stat CT scan of abdomen/pelv is to look for stone Hydrate and use tramadol prn Increase metoprolol to 25mg po BID Will see urology pending CT scan results 04/22/2016 Appointment: Neela Hyman WPtel: [address] [place], [place] [address] 04/17 confirmed-sp ACUTE ILLNESS 04/22/2016 Patient Education: [...] flu shot 04/01/2016 Appointment: Neela Hyman WPtel: [address] [place], [place] [phone] [place] FOLLOW UP 04/01/2016 Patient Education: Patient Medication Summary Completed 04/01/2016 Patient Education: [facility] - Saving AutoInj - 18-64 - Dynamic Heber l ID Completed 04/01/2016 Patient Education: Patient Medication Summary Completed 03/28/2016 Care Plan: A1C HPLC LOINC : 15320-0 Pending 03/28/2016 Care Plan: [place] : 89[address]-6 Pending 03/28/2016 Visit Plan: Lab discussed Continue curre nt meds Accuchecks daily 11/30/2015 Appointment: Neela Hyman WPtel: [address] [place] [address] 11/28 confirmed~sl FOLLOW UP 11/30/2015 Patient Education: Patient Medication Summary Completed 11/30/2015 Appointment: Neela Hyman WPtel: [address] [place], [place] [phone] [place] RESCHEDULED 11/28/2015 Patient Education: Patient Medication Summary Completed 11/23/2015 Care Plan: [place] : 585[address]-6 Pending 11/23/2015 Care Plan: LIPID PANEL LOINC : 23501-7 Pending 11/23/2015 Care Plan: CBC Pending 11/23/2015 Care Plan: A1C HPLC LOINC : 04225-1 Pending 11/23/2015 Visit Plan: Lab discussed Surinder munguia Continue current meds Cymbalta helping with feet and mood 08/29/2015 Appointment: Neela Hyman [facility]Ptel[facility] [address] [facility] [facility] FOLLOW UP 08/29/2015 Patient Education: Patient Medication Summary Completed 08/29/2015 Visit Plan: Check CXR Stop all steroids and steroid inhalers Use SVN with but change to duoneb Add singulair for allergy etiology Change fluoxetine to cymbalta 60mg daily Viagra samples given to try prn--warned of no nitrates 08/14/2015 Appointment: Neela Hyman WPtel: [address] [facility] lm to reschedule ~sl 07/27 lm ~sl 08/09 busy 08/10 fer rosales-riley Annual Well Visit 08/14/2015 Patient Education: Patient Medication Summary Completed 08/14/2015 Care Plan: CHEST X-RAY 2VW FRONTAL&LATL LOINC : 67879-7 Ordered 08/14/2015 Visit Plan: Decadron 8mg given [...] improving as expected 08/09/2015 Appointment: Sammi [facility]ajera [facility] [facility] [facility] Follow UP 08/09/2015 Patient Education: Patient Medication Summary Completed 08/09/2015 Patient Education: [facility] - Saving AutoInj - 18-64 - Dynamic [...] with it 05/22/2015 Appointment: Neela Hyman WPtel: [address] [place], [place] [phone] 05/17 confirmed~sl FOLLOW UP 05/22/2015 Patient Education: Patient Medication Summary Completed 05/22/2015 Patient Education: Patient Medication Summary Completed 05/15/2015 Visit Plan: Obtain EMGs done at [place] from when fractured left arm Lab discussed Accuchecks daily 02/13/2015 Appointment: Neela Hyman WPtel: [address] [place], [place] [phone] 02/10 confrimed FOLLOW UP 02/13/2015 Patient Education: Patient Medication Summary Completed 02/13/2015 Patient Education: Patient Medication Summary Completed 02/09/2015 Visit Plan: discussed lab add fenofibrat e 134mg po daily recheck fasting lab in 3 months, CBC, CMP, Lipids, hgb AIC 11/07/2014 Appointment: Neela Hyman WPtel: [address] [place], [place] [address] 11/04 appt confirmed cn FOLLOW UP 015 Patient Education: Patient Medication Summary Completed 11/07/2014 Patient Education: Patient Medication Summary Completed 11/03/2014 Visit Plan: Continue loratadine 10mg richard ly Notify if symptoms return 10/04/2014 Appointment: Neela Hyman WPtel: [address] [place], [place] [phone] confirmed on 10/03 at 2:42pm FOLLOW UP 09/23 Patient Education: Patient Medication Summary Completed 10/04/2014 Appointment: Neela Hyman WPtel: [address] ACUTE ILLNESS 09/28/2014 Appointment: RodrigoVirajLoren WPtel: 02 [place] [address] FOLLOW UP 09/22/2014 Patient Education: Patient Medication Summary Completed 09/22/2014 Appointment: Loren Garza Delma WPtel: [address] [place] [address] ACUTE ILLNESS 09/21/2014 Patient Education: Patient Medication Summary Completed 09/21/2014 Patient Education: [facility] - Saving AutoInj - 18+ - Dynamic Portal ID Completed 09/21/2014 Visit Plan: Lab discussed Continue daily accuchecks Continue current meds 06/28/2014 Appointment: Neela Hyman WPtel: [address] [place] [address] FOLLOW UP 06/28/2014 Patient Education: Patient Medication Summary Completed 06/28/2014 Patient Education: Patient Medication Summary Completed 06/23/2014 Appointment: Sarah Sunshine WPtel: [address] [place] [address] ACUTE ILLNESS 06/10/2014 Patient Education: Patient Medication Summary Completed 06/10/2014 Patient Education: [facility] - Saving AutoInj - 18+ - Dynamic Portal ID Completed 06/10/2014 Visit Plan: Lab discussed Continue daily accuchecks Continue current meds 03/29/2014 Appointment: Neela Hyman WPtel: [address] [place], [place] [id number] FOLLOW UP 03/29/2014 Patient Education: Patient Medication Summary Completed 03/29/2014 Patient Education: Patient Medication Summary Completed 03/23/2014 Visit Plan: Lab discussed Continue curre nt meds and accuchecks See surgery for removal of hand lesion 11/30/2013 Appointment: Neela Hyman WPtel: [address] [place], [place] [phone] 11/29 no answer FOLLOW UP 11/30/2013 Patient Education: Patient Medication Summary Completed 11/30/2013 Visit Plan: Lab discussed Continue curre nt meds 08/03/2013 Appointment: Neela Hyman WPtel: [address] [place] [address] FOLLOW UP 08/03/2013 Patient Education: Patient Medication Summary Completed 08/03/2013 Visit Plan: Lab Discussed Will continue current meds and pt will get back on diet/exercise Check lab in 4mos and fwup 04/06/2013 Appointment: Neela Hyman WPtel: [address] [place] [address] FOLLOW UP 04/06/2013 Patient Education: Patient Medication Summary Completed 04/06/2013 Visit Plan: Lab discussed Continue daily accuchecks 12/01/2012 Appointment: Neela Hyman WPtel: [address] [place] [address] 11/30 no answer FOLLOW UP 12/01/2012 Patient Education: Patient Medication Summary Completed 12/01/2012 Visit Plan: Continue current meds and da russell accuchecks Lab discussed 08/04/2012 Appointment: Neela Hyman WPtel: [address] [place] [address] FOLLOW UP 08/04/2012 Patient Education: Patient Medication Summary Completed 08/04/2012 Appointment: Neela Hyman WPtel: [address] [place], [place] [phone] [facility] 06/01/2012 Patient Education: Patient Medication Summary Completed 06/01/2012 Appointment: Janet Jean Baptiste WPtel: [address] [place], [place] [phone] FOLLOW UP 05/29/2012 Patient Education: Patient Medication Summary Completed 05/29/2012 Visit Plan: pt states Dr. Hyman told h is to increase his Prozac dose while she was talking to her at [facility]. Discussed that pt. should not increase or decrease dosage without Dr's knowledge. Pt. will seek hearing test here in town at the hearing aid place on [address]. Discussed that ear pain is likely caused by sinus pressure. Pt. will notify if no improvement. 05/25/2012 Appointment: Janet Jean Baptiste WPtel: [address] [place], [place] [phone] ACUTE ILLNESS 05/25/2012 Patient Education: Patient Medication Summary Completed 05/25/2012 Visit Plan: Continue current meds Contin ue daily accuchecks but alternate times Increase fish oil to 3gm daily 04/07/2012 Appointment: Neela Hyman WPtel: [address] [place] [address] 04/06 FOLLOW UP 04/07/2012 Patient Education: Patient Medication Summary Completed 04/07/2012 Appointment: Janet Jean Baptiste WPtel: [address] [place] [address] ACUTE ILLNESS 12/16/2011 Patient Education: Patient Medication Summary Completed 12/16/2011 Visit Plan: Increase 12/03/2011 Appointment: Neela Hyman WPtel: [address] [place] [address] FOLLOW UP 12/03/2011 Patient Education: Patient Medication Summary Completed 12/03/2011 Visit Plan: Continue current meds Contin ue accuchecks 08/29/2011 Appointment: Neela Hyman WPtel: [address] [place], [place] [id number] FOLLOW UP 08/29/2011 Patient Education: Patient Medication Summary Completed 08/29/2011 Visit Plan: Continue current meds except restart zocor 05/30/2011 Appointment: Neela Hyman WPtel: [address] [place], [place] [phone] [place] FOLLOW UP 05/30/2011 Patient Education: Patient Medication Summary Completed 05/30/2011 Visit Plan: Continue tennis elbow strap May go back to weight-lifing--light weigts every other day 01/29/2011 Appointment: Neela Hyman WPtel: [address] [place], [place] [phone] [place] FOLLOW UP 01/29/2011 Patient Education: Patient Medication Summary Completed 01/29/2011 Visit Plan: Continue tennis elbow strap and anti-inflammatories 01/14/2011 Appointment: Neela Hyman WPtel: [address] [place], [place] [phone] FOLLOW UP 01/14/2011 Appointment: Janet Jean Baptiste WPtel: [address] [place] [address] NEW PATIENT 01/14/2011 Patient Education: Patient Medication Summary Completed 01/14/2011 Appointment: Neela Hyman WPtel: [address] [place] [address] FOLLOW UP 01/08/2011 Appointment: Neela Hyman WPtel: [address] [place] [address] FOLLOW UP 01/01/2011 Appointment: Neela Hyman WPtel: [address] [place], [place] [phone] UA 01/01/2011 Patient Education: Patient Medication Summary [...] given. 11/29/2010 Appointment: Janet Jean Baptiste WPtel: [address] [place], [place] [phone] ACUTE ILLNESS 11/29/2010 Patient Education: Patient Medication Summary Completed 11/29/2010 Visit Plan: Cont current meds Check CMP, Lipids, HbA1C 08/28/2010 Appointment: Neela Hyman WPtel: [address] [place], [place] [phone] FOLLOW UP 08/28/2010 Patient Education: Patient Medication Summary Completed 08/28/2010 Visit Plan: Cont current meds and accuch ecks Add Zocor 40mg q HS Check Lipids and HbA1C in 3mos 06/05/2010 Appointment: Neela Hyman WPtel: [address] [place], [place] [phone] [place] FOLLOW UP 06/05/2010 Patient Education: Patient Medication Summary Completed 06/05/2010 Visit Plan: Check Lipids and HbA1C 02/05/2010 Appointment: Neela Hyman WPtel: [address] [place], [place] [phone] [place] FOLLOW UP 02/05/2010 Patient Education: Patient Medication Summary Completed 02/05/2010 Visit Plan: HbA1C in 3mos. Continue Accu checks BID alternating times. Check HbA1C, CMP, Lipids 10/09/2009 Appointment: Neela Hyman WPtel: [address] [place], [place] [phone] [place] FOLLOW UP 10/09/2009 Patient Education: Patient Medication Summary Completed 10/09/2009 Visit Plan: Saline nasal flushes prn. Ty lenol/Motrin prn headache. Notify if persists/symptoms worsening. 08/22/2009 Appointment: Neela Hyman WPtel: [address] [place], [place] [phone] ACUTE ILLNESS 08/22/2009 Patient Education: Patient Medication Summary Completed 08/22/2009 Referral: Aubrey Rand WPtel: [address] [place], [place] [id number] [place] Office will verfy his insurance then they will contact patient Completed Referral: Shahbaz Brennan WPtel: [address] [facility] [address] [id number] [place] Referral Completed Referral: Ion Levi [address] [place] [address] C&D [id number] [place] Referral Appointment Requested Referral: Ion Levi [address] [place] [address] C&D [id number] [place] Referral Appointment Requested Instructions Comment . [...] with it . Obtain EMGs done at [place] from when fractured left arm Lab discussed [...] while she was talking to her at [facility]. Discussed that pt. should not increase or decrease dosage without Dr's knowledge. Pt. will seek hearing test here in town at the hearing aid place on [address]. Discussed that ear pain is likely caused [...]
--- OUTSIDE RECORDS SUMMARY | 2019-12-09 08:54 | XMS REPORT | CCD ---
Author Author Michael Hyman D.O. Organization [facility] Address [address] [place] [address] Phone Care Team Providers Care Central Sterile Supply Technician Name Role Phone Neela Hyman D.O., PP Unavailable CCM Unavailable Summary Purpose Interface Exchange Insurance Providers Payer name Policy type / Coverage type Covered green party ID Effective Begin Date Effective End Date ABS FOR hipix Commercial Insurance [id number] Unknown Family History Family History data not found Social History Social History Element Codes Description Effective Dates Marital status Unknown 05/30/[address]: 0764877 Former smoker quit 25 years ago 01/01/2011 [...] chloride ER 20 mEq tablet,extended release RxNorm: 385215 TAKE ONE TABLET BY MOUTH TWO TIMES A DAY 11/01/2019 01/29/2020 Active Zocor 40 mg tablet RxNorm: 192633 TAKE ONE TABLET BY M OUTH EVERY NIGHT AT BEDTIME 10/20/2019 04/16/2020 Active MagOx 400 mg (241.3 mg magnesium) tablet RxNorm: 140513 TAKE ONE TABLET BY MOUTH EVERY DAY 10/20/2019 04/16/2020 Active fenofibrate micronized 134 mg capsule RxNorm: 680791 1 Capsule( s) Oral QD 09/22/2019 03/20/2020 Active metformin 500 mg tablet RxNorm: 570286 2 Tablet(s) Oral two afshan es a day 09/22/2019 12/20/2019 Active Benicar 40 mg tablet RxNorm: 445536 1 Tablet(s) Oral QD 09/22/2019 Active Singulair 10 mg tablet RxNorm: 378302 TAKE ONE TABLET BY MOUTH EVERY EVENING 09/22/2019 03/20/2020 Active Reselected prescribe r from [facility] to [facility] Lasix 40 mg tablet RxNorm: 016748 1 Tablet(s) Oral QD 08/24/201910/25 Inactive duloxetine 60 mg capsule,delayed release RxNorm: 826314 TAKE ONE CAPSULE BY MOUTH EVERY DAY 08/16/2019 02/11/2020 Active metoprolol succinate ER 100 mg tablet,extended release 24 hr RxNorm: 563478 TAKE ONE TABLET BY MOUTH TWICE A DAY 08/16/2019 05/11/2020 Active potassium chloride ER 20 mEq tablet,extended release RxNorm: 833868 1 Tablet(s) Oral two times a day 07/22/2019 10/19/2019 Inactive metformin 500 mg tablet RxNorm: 358254 2 Tablet(s) Oral two afshan es a day 07/13/2019 09/21/2019 Inactive Keflex 500 mg capsule RxNorm: 216477 1 Capsule(s) Oral three ti mes a day 07/06/2019 07/13/2019 Inactive Singulair 10 mg tablet RxNorm: 633544 TAKE ONE TABLET BY MOUTH EVERY EVENING 07/06/2019 09/21/2019 Inactive Reselected prescribe r from [facility] to [facility] Singulair 10 mg tablet RxNorm: 191866 TAKE ONE TABLET BY MOUTH EVERY EVENING 06/22/2019 07/05/2019 Inactive Reselected prescribe r from [facility] to [facility] Zocor 40 mg tablet RxNorm: 622338 TAKE ONE TABLET BY M OUTH EVERY NIGHT AT BEDTIME 06/21/2019 10/19/2019 Inactive MagOx 400 mg (241.3 mg magnesium) tablet RxNorm: 296065 1 Table t(s) Oral QD 06/21/2019 08/20/2019 Inactive diltiazem ER 360 mg capsule,24 hr,extended release RxNorm: 8 30522 TAKE ONE CAPSULE BY MOUTH AT BEDTIME -REPLACES 300MG 05/17/2019 11/12/2019 Inactive MagOx 400 mg (241.3 mg magnesium) tablet RxNorm: 756545 1 Table t(s) Oral QD 04/26/2019 06/20/2019 Inactive Lasix 40 mg tablet RxNorm: 065021 40 MG PO DAILY 04/12/2019 08/23/2019 Inactive Benicar 40 mg tablet RxNorm: 775631 1 Tablet(s) Oral QD 03/29/2019 Inactive potassium chloride ER 20 mEq tablet,extended release RxNorm: 448376 1 Tablet(s) Oral two times a day 03/29/2019 06/27/2019 Inactive potassium chloride ER 20 mEq tablet,extended release RxNorm: 483929 1 Tablet(s) Oral QD 03/29/2019 03/28/2019 Inactive Benicar 40 mg tablet RxNorm: 049553 1 Tablet(s) Oral QD 03/29/2019 Inactive MagOx 400 mg (241.3 mg magnesium) tablet RxNorm: 675780 1 Table t(s) Oral QD 03/29/2019 04/25/2019 Inactive metformin 500 mg tablet RxNorm: 274757 2 Tablet(s) Oral two afshan es a day 03/29/2019 07/12/2019 Inactive fenofibrate micronized 134 mg capsule RxNorm: 791478 TA KE ONE CAPSULE BY MOUTH EVERY DAY 03/05/2019 09/21/2019 Inactive duloxetine 60 mg capsule,delayed release RxNorm: 335951 1 Capsu le(s) PO QD 01/28/2019 07/26/2019 Inactive Trelegy Ellipta 100 mcg-62.5 mcg-25 mcg powder for inhalatio n RxNorm: 4437164 1 Puff(s) INH QD 01/06/2019 12/31/2019 Active 90 day supply prednisone 20 mg tablet RxNorm: 842357 1 Tablet(s) PO T ID for 3 days then 1 po BID for 3 days then 1 po daily for 3 days 01/05/2019 03/28/2019 Inacti ve metformin ER 1,000 mg tablet,extended release 24hr RxNorm: 1 953429 TAKE TWO TABLETS (1000MG) BY MOUTH TWO TIMES A DAY 12/22/2018 07/13/2019 Inacti ve Diflucan 100 mg tablet RxNorm: 766497 1 Tablet(s) PO QD 12/09/2018 Inactive prednisone 20 mg tablet RxNorm: 256259 1 Tablet(s) PO B ID for 4 days then 1 po daily for 4 days 11/24/2018 01/04/2019 Inactive albuterol sulfate 2.5 mg/3 mL (0.083 %) solution for n ebulization RxNorm: 784716 3 Milliliter(s) INH ONE VIAL VIA NEBULIZER EVERY 4 HOURS 019 07/21/2019 Inactive [AttnRPh: Saving apply/adjudicate RxGRP: SG20 RxBIN:[id number] RxPCN: ID#:[id number]] Trelegy Ellipta 100 mcg-62.5 mcg-25 mcg powder for inhalatio n RxNorm: 7566832 1 Puff(s) INH QD 10/27/2018 01/06/2019 Inactive 90 day supply diltiazem ER 360 mg capsule,24 hr,extended release RxNorm: 8 65632 TAKE ONE CAPSULE BY MOUTH AT BEDTIME -REPLACES 300MG 10/13/2018 04/10/2019 Inactive metoprolol succinate ER 100 mg tablet,extended release 24 hr RxNorm: 071730 TAKE ONE TABLET BY MOUTH TWICE A DAY 10/13/2018 07/09/2019 Inactive Trelegy Ellipta 100 mcg-62.5 mcg-25 mcg powder for inhalatio n RxNorm: 3843801 INHALE ONE PUFF ONCE DAILY 09/07/2018 10/27/2018 Inactive Levaquin 750 mg tablet RxNorm: 797285 1 Tablet(s) PO QD 09/07/2018 Inactive Levaquin 750 mg tablet RxNorm: 085993 1 Tablet(s) PO QD 09/07/2018 Inactive prednisone 20 mg tablet RxNorm: 214133 2 Tablet(s) PO QAM 08/13/2018 08/19/2018 Inactive Levaquin 500 mg tablet RxNorm: 291662 1 Tablet(s) PO QD 08/11/2018 Inactive fenofibrate micronized 134 mg capsule RxNorm: 965545 TA KE ONE CAPSULE BY MOUTH EVERY DAY 08/10/2018 02/05/2019 Inactive prednisone 20 mg tablet RxNorm: 205781 1 Tablet(s) PO BID 07/16/2018 07/20/2018 Inactive doxycycline hyclate 100 mg capsule RxNorm: 2118288 1 Capsule(s) PO BID 07/13/2018 07/22/2018 Inactive duloxetine 60 mg capsule,delayed release RxNorm: 164806 TAKE ONE CAPSULE BY MOUTH ONCE A DAY 07/08/2018 01/28/2019 Inactive Lasix 40 mg tablet RxNorm: 861052 1 TABLET(S) PO QAM 06/08/201809/05 Inactive potassium chloride ER 20 mEq tablet,extended release(p art/cryst) RxNorm: 7883752 1 TABLET(S) PO QD 06/08/2018 09/05/2018 Inactive metformin ER 1,000 mg tablet,extended release 24hr RxNorm: 1 815770 TAKE TWO TABLETS (1000MG) BY MOUTH TWO TIMES A DAY 06/01/2018 11/27/2018 Inacti ve Benicar HCT 40 mg-25 mg tablet RxNorm: 287763 TAKE ONE TABLET BY MOUTH ONCE DAILY 05/11/2018 03/28/2019 Inactive Zocor 40 mg tablet RxNorm: 375451 TAKE ONE TABLET BY M OUTH EVERY NIGHT AT BEDTIME 05/11/2018 06/20/2019 Inactive Trelegy Ellipta 100 mcg-62.5 mcg-25 mcg powder for inhalatio n RxNorm: 2729147 1 PUFF(S) INH QD 04/06/2018 07/04/2018 Inactive diltiazem ER 360 mg capsule,24 hr,extended release RxNorm: 8 63805 1 Capsule(s) PO QHS replaces 300mg dose 03/30/2018 09/25/2018 Inactive Trelegy Ellipta 100 mcg-62.5 mcg-25 mcg powder for inhalatio n RxNorm: 7893547 1 Puff(s) INH QD 02/24/2018 02/23/2018 Inactive Trelegy Ellipta 100 mcg-62.5 mcg-25 mcg powder for inhalatio n RxNorm: 6091208 1 Puff(s) INH QD 02/24/2018 02/23/2018 Inactive Trelegy Ellipta 100 mcg-62.5 mcg-25 mcg powder for inhalatio n RxNorm: 2661583 1 Puff(s) INH QD 02/24/2018 04/05/2018 Inactive Lasix 40 mg tablet RxNorm: 407327 1 Tablet(s) PO QAM 02/10/201803/11 Inactive potassium chloride ER 20 mEq tablet,extended release(p art/cryst) RxNorm: 2862800 1 Tablet(s) PO QD 02/10/2018 03/11/2018 Inactive fenofibrate micronized 134 mg capsule RxNorm: 218319 1 Capsule( s) PO QD 01/30/2018 07/28/2018 Inactive metoprolol succinate ER 100 mg tablet,extended release 24 hr RxNorm: 537426 TAKE ONE TABLET BY MOUTH TWICE A DAY 12/30/2017 09/25/2018 Inactive metformin ER 1,000 mg tablet,extended release 24hr RxNorm: 1 658932 1 Tablet(s) PO BID 11/17/2017 05/15/2018 Inactive [SAVINGS FOR NON -COVERED DRUGS -- BIN:850217, PCN: ASPROD1, Group: XXXXX, ID# [id number], Questions: . THIS IS NOT INSURANCE.] Benicar HCT 40 mg-25 mg tablet RxNorm: 434299 1 Tablet(s) PO QD 05/10/2018 Inactive [SAVINGS FOR NON-COVERED JESU GS -- BIN:920404, PCN: ASPROD1, Group: XXXXX, ID# [id number], Questions: . THIS IS NOT INSURANCE.] Bactroban 2 % topical cream RxNorm: 203927 Application TOP BID 10/2409/02/2018 Inactive clindamycin HCl 300 mg capsule RxNorm: 946716 2 Capsule(s) PO TID 0 11/05/2017 11/18/2017 Inactive duloxetine 60 mg capsule,delayed release RxNorm: 956810 Capsule(s) TAKE ONE CAPSULE BY MOUTH ONCE DAILY 09/24/2017 09/23/2017 Inactive triamcinolone acetonide 0.1 % topical ointment RxNorm: 3862026 1 TOP BID 09/09/2017 11/04/2017 Inactive Bactrim DS 800 mg-160 mg tablet RxNorm: 847166 1 Tablet(s) PO BID 0 08/07/2017 08/13/2017 Inactive metronidazole 500 mg tablet RxNorm: 833568 1 Tablet(s) PO BID 08/0708/13/2017 Inactive diltiazem ER 360 mg capsule,24 hr,extended release RxNorm: 8 62147 1 Capsule(s) PO QHS replaces 300mg dose 08/04/2017 01/30/2018 Inactive fenofibrate micronized 134 mg capsule RxNorm: 420758 1 Capsule( s) PO QD 07/21/2017 01/30/2018 Inactive Zocor 40 mg tablet RxNorm: 448759 1 Tablet(s) PO QHS 07/21/201705/10 Inactive GB duloxetine 60 mg capsule,delayed release RxNorm: 197987 Capsule(s) TAKE ONE CAPSULE BY MOUTH ONCE DAILY 06/24/2017 09/24/2017 Inactive Cleocin HCl 300 mg capsule RxNorm: 688347 2 Capsule(s) PO BID 06/0206/08/2017 Inactive acyclovir 800 mg tablet RxNorm: 813240 1 Tablet(s) PO 5x day 201706/08/2017 Inactive diltiazem ER 300 mg capsule,24 hr,extended release RxNorm: 8 66472 1 Capsule(s) PO QHS replaces 240mg dose 05/05/2017 08/03/2017 Inactive ipratropium-albuterol 0.5 mg-3 mg(2.5 mg base)/3 mL ne bulization soln RxNorm: 3673940 1 Unit Dose INH Q4H as needed 05/05/2017 01/04/2019 Inactive metformin ER 1,000 mg tablet,extended release 24hr RxNorm: 1 697519 1 Tablet(s) PO BID 04/28/2017 11/17/2017 Inactive [SAVINGS FOR NON -COVERED DRUGS -- BIN:723165, PCN: ASPROD1, Group: XXXXX, ID# [id number], Questions: . THIS IS NOT INSURANCE.] diltiazem ER (XR/XT) 240 mg capsule,extended release 2 4 hr, controlled RxNorm: 393064 TAKE ONE CAPSULE BY MOUTH EVERY DAY 04/15/2017 05/04/2017 Inact avani prednisone 20 mg tablet RxNorm: 938173 1 Tablet(s) PO QD 04/10/2017 1 06/14/2016 Inactive Breo Ellipta 200 mcg-25 mcg/dose powder for inhalation RxNor m: 9693439 1 Puff(s) INH QD 04/10/2017 02/09/2018 Inactive Breo Ellipta 200 mcg-25 mcg/dose powder for inhalation RxNor m: 2323617 1 Puff(s) INH QD 04/10/2017 04/09/2017 Inactive Levaquin 500 mg tablet RxNorm: 238618 1 Tablet(s) PO QD 04/10/2017 Inactive metoprolol succinate ER 100 mg tablet,extended release 24 hr RxNorm: 362692 TAKE ONE TABLET BY MOUTH TWICE A DAY 03/24/2017 12/18/2017 Inactive fenofibrate micronized 134 mg capsule RxNorm: 416638 1 Capsule( s) PO QD 01/16/2017 07/21/2017 Inactive Benicar HCT 40 mg-25 mg tablet RxNorm: 749537 1 Tablet(s) PO QD 11/17/2017 Inactive [SAVINGS FOR NON-COVERED JESU GS -- BIN:196629, PCN: ASPROD1, Group: XXXXX, ID# [id number], Questions: . THIS IS NOT INSURANCE.] metoprolol succinate ER 100 mg tablet,extended release 24 hr RxNorm: 735279 1 Tablet(s) PO BID 10/16/2016 03/23/2017 Inactive diltiazem ER (XR/XT) 240 mg capsule,extended release 2 4 hr, controlled RxNorm: 825742 1 Capsule(s) PO QD 10/16/2016 04/13/2017 Inactive [SAVINGS FOR NON- COVERED DRUGS -- BIN:726743, PCN: ASPROD1, Group: XXXXX, ID# [id number], Questions: . THIS IS NOT INSURANCE.] metformin ER 1,000 mg tablet,extended release 24hr RxNorm: 8 97662 1 Tablet(s) PO BID 10/16/2016 04/28/2017 Inactive [SAVINGS FOR NON -COVERED DRUGS -- BIN:506659, PCN: ASPROD1, Group: XXXXX, ID# [id number], Questions: . THIS IS NOT INSURANCE.] Zocor 40 mg tablet RxNorm: 645869 1 Tablet(s) PO QHS 10/16/201607/21 Inactive GB Singulair 10 mg tablet RxNorm: 057172 Tablet(s) 1 TABLET(S) PO QHS 08/27/2016 09/02/2018 Inactive prednisone 20 mg tablet RxNorm: 545690 1 Tablet(s) PO QD 08/27/2016 0 08/31/2016 Inactive ipratropium-albuterol 0.5 mg-3 mg(2.5 mg base)/3 mL ne bulization soln RxNorm: 4245314 1 Unit Dose INH Q4H as needed 08/27/2016 05/04/2017 Inactive metoprolol succinate ER 100 mg tablet,extended release 24 hr RxNorm: 434750 TAKE ONE TABLET BY MOUTH TWICE A DAY 08/05/2016 10/16/2016 Inactive duloxetine 60 mg capsule,delayed release RxNorm: 248219 TAKE ONE CAPSULE BY MOUTH ONCE DAILY 08/05/2016 06/24/2017 Inactive prednisone 20 mg tablet RxNorm: 374008 1 Tablet(s) PO QD 06/14/2016 0 06/18/2016 Inactive ipratropium-albuterol 0.5 mg-3 mg(2.5 mg base)/3 mL ne bulization soln RxNorm: 3505200 1 Unit Dose INH Q4H as needed 06/13/2016 08/26/2016 Inactive Levaquin 500 mg tablet RxNorm: 496386 1 Tablet(s) PO QD 06/13/2016 Inactive metoprolol succinate ER 100 mg tablet,extended release 24 hr RxNorm: 049546 1 Tablet(s) PO BID replaces 50mg dose 05/14/2016 07/12/2016 Inactive metoprolol succinate ER 50 mg tablet,extended release 24 hr RxNorm: 925127 1 Tablet(s) PO BID 04/29/2016 05/13/2016 Inactive prednisone 20 mg tablet RxNorm: 883222 1 Tablet(s) PO BID 04/22/2016 04/21/2016 Inactive prednisone 20 mg tablet RxNorm: 642074 1 Tablet(s) PO BID 04/22/2016 04/28/2016 Inactive Singulair 10 mg tablet RxNorm: 875769 Tablet(s) 1 TABLET(S) PO QHS 04/01/2016 08/26/2016 Inactive metoprolol succinate ER 25 mg tablet,extended release 24 hr RxNorm: 076977 1 Tablet(s) PO QHS for blood pressure 04/01/2016 05/13/2016 Inactive fenofibrate micronized 134 mg capsule RxNorm: 016548 TA KE ONE CAPSULE BY MOUTH DAILY 01/25/2016 01/16/2017 Inactive duloxetine 60 mg capsule,delayed release RxNorm: 804188 TAKE ONE CAPSULE BY MOUTH ONCE DAILY 01/25/2016 08/04/2016 Inactive Zocor 40 mg tablet RxNorm: 411625 TAKE ONE TABLET BY MOUTH AT B EDTIME 11/13/2015 10/16/2016 Inactive GB metformin ER 1,000 mg tablet,extended release 24hr RxNorm: 8 01082 1 Tablet(s) PO BID 10/26/2015 10/16/2016 Inactive [SAVINGS FOR NON -COVERED DRUGS -- BIN:529410, PCN: ASPROD1, Group: XXXXX, ID# [id number], Questions: . THIS IS NOT INSURANCE.] Benicar HCT 40 mg-25 mg tablet RxNorm: 098872 1 Tablet(s) PO QD 06/201511/11/2016 Inactive [SAVINGS FOR NON-COVERED JESU GS -- BIN:179389, PCN: ASPROD1, Group: XXXXX, ID# [id number], Questions: . THIS IS NOT INSURANCE.] diltiazem ER (XR/XT) 240 mg capsule,extended release,control led RxNorm: 565790 1 Capsule(s) PO QD 10/26/2015 10/15/2016 Inactive [SAVINGS FOR NO N-COVERED DRUGS -- BIN:315116, PCN: ASPROD1, Group: XXXXX, ID# XXXXXXX, Questions: . THIS IS NOT INSURANCE.] Singulair 10 mg tablet RxNorm: 340016 1 TABLET(S) PO QHS 09/18/2015 1 05/31/2015 Inactive Viagra 100 mg tablet RxNorm: 771198 1 Tablet(s) PO as needed 201511/23/2018 Inactive Singulair 10 mg tablet RxNorm: 423815 1 Tablet(s) PO QHS 08/16/2015 0 08/15/2015 Inactive Singulair 10 mg tablet RxNorm: 232240 1 Tablet(s) PO QHS 08/16/2015 0 09/14/2015 Inactive duloxetine 60 mg capsule,delayed release RxNorm: 614190 1 Capsule(s) PO QD replaces fluoxetine 08/14/2015 01/24/2016 Inactive ipratropium-albuterol 0.5 mg-3 mg(2.5 mg base)/3 mL ne bulization soln RxNorm: 9512484 1 Unit Dose INH Q4H as needed 08/14/2015 06/12/2016 Inactive prednisone 20 mg tablet RxNorm: 268129 Take 3 tabs PO o nce daily x 3 days, then 2 tabs PO once daily x 3 days and then 1 tab PO once daily x 3 days 08/09/2015 08/13/2015 Inactive Symbicort 160 mcg-4.5 mcg/actuation HFA aerosol inhaler RxNo rm: 4354468 2 Puff(s) INH BID 08/09/2015 08/13/2015 Inactive Zocor 40 mg tablet RxNorm: 124500 1 Tablet(s) PO QHS 05/23/201511/11 Inactive [AttnRPh: Saving apply/adjudicate RxGRP: SG20 RxBIN:[id number] RxPCN: ID#:[id number]] Benicar HCT 40 mg-25 mg tablet RxNorm: 842337 1 Tablet(s) PO QD 10/26/2015 Inactive [SAVINGS FOR NON-COVERED JESU GS -- BIN:068608, PCN: ASPROD1, Group: XXXXX, ID# [id number], Questions: . THIS IS NOT INSURANCE.] diltiazem ER (XR/XT) 240 mg capsule,extended release,control led RxNorm: 655109 1 Capsule(s) PO QD 04/24/2015 10/20/2015 Inactive [SAVINGS FOR NO N-COVERED DRUGS -- BIN:634907, PCN: ASPROD1, Group: XXXXX, ID# [id number], Questions: . THIS IS NOT INSURANCE.] fluoxetine 40 mg capsule RxNorm: 687733 1 Capsule(s) PO QD 04/24/20 15 08/13/2015 Inactive [SAVINGS FOR NON-COVERED JESU GS -- BIN:755023, PCN: ASPROD1, Group: XXXXX, ID# XXXXXXX, Questions: . THIS IS NOT INSURANCE.] Zocor 40 mg tablet RxNorm: 327970 TABLET(S) 1 TABLET(S) PO QHS 01/2505/23/2015 Inactive [AttnRPh: Saving apply/adjud icate RxGRP:SG20 RxBIN:[id number] RxPCN:HT ID#:[id number]] metformin ER 1,000 mg tablet,extended release 24hr RxNorm: 8 07804 1 TABLET(S) PO BID 01/29/2015 10/26/2015 Inactive [SAVINGS FOR NON -COVERED DRUGS -- BIN:286437, PCN: ASPROD1, Group: XXXXX, ID# XXXXXXX, Questions: . THIS IS NOT INSURANCE.] fenofibrate micronized 134 mg capsule RxNorm: 191706 1 CAPSULE( S) PO QD 01/23/2015 01/17/2016 Inactive fenofibrate micronized 134 mg capsule RxNorm: 299945 1 Capsule( s) PO QD 11/07/2014 01/22/2015 Inactive diltiazem ER (XR/XT) 240 mg capsule,extended release,control led RxNorm: 361647 1 Capsule(s) PO QD 10/24/2014 04/24/2015 Inactive [SAVINGS FOR NO N-COVERED DRUGS -- BIN:355653, PCN: ASPROD1, Group: XXXXX, ID# XXXXXXX, Questions: . THIS IS NOT INSURANCE.] Benicar HCT 40 mg-25 mg tablet RxNorm: 168570 1 Tablet(s) PO QD 05/201404/24/2015 Inactive [SAVINGS FOR NON-COVERED JESU GS -- BIN:066856, PCN: ASPROD1, Group: XXXXX, ID# XXXXXXX, Questions: . THIS IS NOT INSURANCE.] fluoxetine 40 mg capsule RxNorm: 531318 1 Capsule(s) PO QD 10/25/19 15 04/24/2015 Inactive [SAVINGS FOR NON-COVERED JESU GS -- BIN:805337, PCN: ASPROD1, Group: XXXXX, ID# XXXXXXX, Questions: . THIS IS NOT INSURANCE.] azithromycin 500 mg tablet RxNorm: 353153 1 Tablet(s) PO QD 015 09/27/2014 Inactive [SAVINGS FOR NON-COVERED JESU GS -- BIN:836937, PCN: ASPROD1, Group: XXXXX, ID# XXXXXXX, Questions: . THIS IS NOT INSURANCE.] albuterol sulfate 2.5 mg/3 mL (0.083 %) solution for n ebulization RxNorm: 372841 3 Milliliter(s) INH ONE VIAL VIA NEBULIZER EVERY 4 HOURS 015 11/19/2014 Inactive [AttnRPh: Saving apply/adjudicate RxGRP: SG20 RxBIN:[id number] RxPCN: ID#:[id number]] Zocor 40 mg tablet RxNorm: 187470 TABLET(S) 1 TABLET(S ) PO QHS 1 TABLET(S) PO QHS 09/04/2014 02/21/2015 Inactive [AttnRPh: Saving apply/adjudicate RxGRP:SG20 RxBIN:[id number] RxPCN: ID#:[id number]] metformin ER 1,000 mg tablet,extended release 24hr RxNorm: 8 20335 1 Tablet(s) PO BID 08/04/2014 01/28/2015 Inactive [SAVINGS FOR NON -COVERED DRUGS -- BIN:615254, PCN: ASPROD1, Group: XXXXX, ID# XXXXXXX, Questions: . THIS IS NOT INSURANCE.] Bromfed DM 2 mg-30 mg-10 mg/5 mL syrup RxNorm: 7651389 1 -2 Teaspoon(s) PO Q4H as needed for cough 06/10/2014 06/19/2014 Inactive [SAVINGS FOR UN INSURED PATIENTS -- BIN:980539, PCN: ASPROD1, Group: AME08, ID# [id number], Process claim through [employer], for questions: . THIS IS NOT INSURANCE.] Augmentin 875 mg-125 mg tablet RxNorm: 811559 1 Tablet(s) PO Q12H 0 06/10/2014 06/19/2014 Inactive [AttnRPh: Saving apply/adjud icate RxGRP:SG20 RxBIN:[id number] RxPCN: ID#:[id number]] Zocor 40 mg tablet RxNorm: 943371 Tablet(s) 1 TABLET(S ) PO QHS 1 TABLET(S) PO QHS 05/25/2014 08/22/2014 Inactive [AttnRPh: Saving apply/adjudicate RxGRP:SG20 RxBIN:[id number] RxPCN:HT ID#:[id number]] fluoxetine 40 mg capsule RxNorm: 540094 1 Capsule(s) PO QD 04/29/20 14 10/24/2014 Inactive [AttnRPh: Saving apply/adjud icate RxGRP:SG20 RxBIN:[id number] RxPCN:HT ID#:[id number]] diltiazem ER (XR/XT) 240 mg capsule,extended release,control led RxNorm: 798392 1 Capsule(s) PO QD 04/29/2014 10/24/2014 Inactive [AttnRPh: Savin g apply/adjudicate RxGRP:SG20 RxBIN:[id number] RxPCN:HT ID#:[id number]] Benicar HCT 40 mg-25 mg tablet RxNorm: 894543 1 Tablet(s) PO QD 09/201310/24/2014 Inactive [AttnRPh: Saving apply/adjud icate RxGRP:SG20 RxBIN:[id number] RxPCN:HT ID#:[id number]] Zocor 40 mg tablet RxNorm: 825236 1 TABLET(S) PO QHS 1 TABLET(S ) PO QHS 03/07/2014 05/25/2014 Inactive [AttnRPh: Saving chelsie ly/adjudicate RxGRP:SG20 RxBIN:[id number] RxPCN:HT ID#:[id number]] Zocor 40 mg tablet RxNorm: 054411 1 Tablet(s) PO QHS 1 TABLET(S ) PO QHS 12/06/2013 03/05/2014 Inactive [AttnRPh: Saving chelsie ly/adjudicate RxGRP:SG20 RxBIN:[id number] RxPCN:HT ID#:[id number]] diltiazem ER (XR/XT) 240 mg capsule,extended release,control led RxNorm: 022514 1 Capsule(s) PO QD 10/25/2013 04/22/2014 Inactive [AttnRPh: Leonelin g apply/adjudicate RxGRP:SG20 RxBIN:[id number] RxPCN:HT ID#:[id number]] fluoxetine 40 mg capsule RxNorm: 255366 1 Capsule(s) PO QD 10/26/1904/22/2014 Inactive [AttnRPh: Saving apply/adjud icate RxGRP:SG20 RxBIN:[id number] RxPCN:HT ID#:[id number]] Zocor 40 mg tablet RxNorm: 619577 1 Tablet(s) PO QHS 1 TABLET(S ) PO QHS 09/13/2013 12/06/2013 Inactive metformin ER 1,000 mg tablet,extended release 24hr RxNorm: 8 37767 Tablet(s) PO TAKE 1 TABLET BY MOUTH TWICE DAILY (REPLACES 500MG DOSE) 07/26/201303/2015 Inactive diltiazem ER (XR/XT) 240 mg capsule,extended release,control led RxNorm: 093185 1 Capsule(s) PO QD 05/03/2013 10/25/2013 Inactive fluoxetine 40 mg capsule RxNorm: 127541 1 Capsule(s) PO QD 05/03/2010/25/2013 Inactive Benicar HCT 40 mg-25 mg tablet RxNorm: 909820 1 Tablet(s) PO QD 01/201304/29/2014 Inactive Zocor 40 mg tablet RxNorm: 561512 1 Tablet(s) PO QHS 12/10/201209/13 Inactive fluoxetine 40 mg capsule RxNorm: 237735 1 Capsule(s) PO QD 11/10/19 13 05/03/2013 Inactive diltiazem ER (XR/XT) 240 mg capsule,extended release,control led RxNorm: 376576 1 Capsule(s) PO QD 11/09/2012 05/03/2013 Inactive Benicar HCT 40 mg-25 mg tablet RxNorm: 132284 1 Tablet(s) PO QD 05/03/2013 Inactive metformin ER 1,000 mg tablet,extended release 24hr RxNorm: 8 81304 Tablet(s) PO TAKE 1 TABLET BY MOUTH TWICE DAILY (REPLACES 500MG DOSE) 08/05/201206/2013 Inactive Zocor 40 mg tablet RxNorm: 361079 1 Tablet(s) PO QHS 06/15/201212/09 Inactive fluoxetine 40 mg capsule RxNorm: 630426 1 Capsule(s) PO QD 05/15/20 12 11/08/2012 Inactive Neurontin 600 mg Tab RxNorm: 917866 1 Tablet(s) PO QHS 12/03/2011 Inactive metformin ER 1,000 mg tablet,extended release 24hr RxNorm: 8 72157 1 Tablet(s) PO BID replaces 500mg dose 12/03/2011 07/26/2013 Inactive Zocor 40 mg tablet RxNorm: 795728 1 Tablet(s) PO QHS 12/03/201106/15 Inactive fluoxetine 20 mg capsule RxNorm: 222773 1 Capsule(s) PO QD 12/03/19 12 05/24/2012 Inactive diltiazem ER (XR/XT) 240 mg capsule,extended release,control led RxNorm: 920990 1 Capsule(s) PO QD 11/15/2011 11/09/2012 Inactive Benicar HCT 40 mg-25 mg tablet RxNorm: 652291 1 Tablet(s) PO QD 02/16/2012 Inactive metformin ER 500 mg 24 hr Tab RxNorm: 764437 1 Tablet(s) PO BID 12/02/2011 Inactive Zocor 40 mg Tab RxNorm: 009236 1 Tablet(s) PO QHS 05/30/2011 11/25/19 12 Inactive fluoxetine 20 mg Cap RxNorm: 907611 1 Capsule(s) PO QD 05/28/2011 Inactive Neurontin 600 mg Tab RxNorm: 586023 1 Tablet(s) PO QHS 05/28/2011 Inactive Neurontin 600 mg Tab RxNorm: 548709 1 Tablet(s) PO QHS 02/22/201106/2011 Inactive Neurontin 600 mg Tab RxNorm: 617821 1 Tablet(s) PO QHS 01/14/2011 Inactive Neurontin 300 mg Cap RxNorm: 451921 1 Capsule(s) PO QHS 01/14/2011 Inactive Neurontin 600 mg Tab RxNorm: 168300 1 Tablet(s) PO QHS 01/14/2011 Inactive Medrol (Vipul) 4 mg Tabs in a Dose Pack RxNorm: 474587 Tablet(s) PO 0 01/02/2011 08/28/2011 Inactive as directed fluoxetine 20 mg Cap RxNorm: 678446 1 Capsule(s) PO QD 12/10/201006/2011 Inactive Zocor 40 mg Tab RxNorm: 261007 1 Tablet(s) PO QHS 12/03/2010 05/29/19 12 Inactive Neurontin 300 mg Cap RxNorm: 620097 1 Capsule(s) PO QHS 12/03/2010 Inactive Septra DS 800 mg-160 mg Tab RxNorm: 167458 1 Tablet(s) PO BID 11/2912/08/2010 Inactive diltiazem ER (XR/XT) 240 mg Continuous Release Cap RxNorm: 8 84778 1 Capsule(s) PO QD 11/20/2010 11/15/2011 Inactive Neurontin 300 mg Cap RxNorm: 232524 1 Capsule(s) PO QHS 11/06/2010 Inactive Neurontin 300 mg Cap RxNorm: 572856 1 Capsule(s) PO QHS 11/06/2010 Inactive Celebrex 200 mg Cap RxNorm: 172226 1 Capsule(s) PO BID 10/24/2010 Inactive fluoxetine 20 mg Cap RxNorm: 790349 1 Capsule(s) PO QD 06/07/201003/2011 Inactive Zocor 40 mg Tab RxNorm: 141019 1 Tablet(s) PO QHS 06/05/2010 12/02/19 11 Inactive Benicar HCT 40 mg-25 mg Tab RxNorm: 570483 1 Tablet(s) PO QD 200908/21/2011 Inactive Diltiazem 240 mg Continuous Release Cap RxNorm: 500723 1 Capsul e(s) PO QD 11/09/2009 09/02/2018 Inactive Avelox 400 mg Tab RxNorm: 396215 1 Tablet(s) PO QD 08/22/2009 010 Inactive ProAir HFA 90 mcg/actuation aerosol inhaler RxNorm: 749303 2 Puff(s) INH Q4H as needed No Start Date Active tramadol 50 mg tablet RxNorm: 702786 1-2 Tablet(s) PO TID as ne eded for pain No Start Date Active Tylenol Arthritis 650 mg Tab RxNorm: 8089709 2 Tablet(s) PO QD No Sta rt Date Active Celebrex 200 mg Cap RxNorm: 942588 1 Capsule(s) PO BID No Start Date 08/08/2015 Inactive Medrol (Vipul) 4 mg Tabs in a Dose Pack RxNorm: 729158 Tablet(s) PO N o Start Date 01/01/2011 Inactive as directed Promethazine-DM 6.25 mg-15 mg/5 mL Syrup RxNorm: 338688 1-2 Teaspoon(s) PO Q4H prn cough No Start Date 08/28/2011 Inactive Claritin 10 mg tablet RxNorm: 234373 1 Tablet(s) PO QD No Start Date 08/08/2015 Inactive Pppxxhypnu-Dhzmf-DXR-James-115HC Oral RxNorm: Oral No Start Da te 03/28/2019 Inactive Breo Ellipta 200 mcg-25 mcg/dose powder for inhalation RxNor m: 8024024 1 Puff(s) INH QD No Start Date 04/09/2017 Inactive metformin 500 mg Tab RxNorm: 953646 1 Tablet(s) PO QD No Start Date 0 08/17/2011 Inactive Diltiazem 240 mg Continuous Release Cap RxNorm: 263779 1 Capsul e(s) PO BID No Start Date 11/08/2009 Inactive fluoxetine 20 mg Cap RxNorm: 479571 1 Capsule(s) PO QD No Start Date 06/07/2010 Inactive Multivitamin & Mineral Formula Oral RxNorm: Oral No Start Da te 03/28/2019 Inactive Medrol (Vipul) 4 mg tablets in a dose pack RxNorm: 906090 Tablet(s) PO as directed No Start Date 05/28/2012 Inactive Fish Oil 1,000 mg Cap RxNorm: 1 Capsule(s) PO QD No Start Date 07/2018 Inactive Nexium 40 mg Cap RxNorm: 319409 1 Capsule(s) PO QD No Start Date 07/24 Inactive fluticasone 50 mcg/actuation nasal spray,suspension RxNorm: 4052102 2 [place] NASAL QD to each nostril No Start Date 08/03/2017 Inactive Viagra 100 mg tablet RxNorm: 701858 1 Tablet(s) PO as needed No Sta rt Date 09/17/2015 Inactive prednisone 20 mg tablet RxNorm: 839699 1 Tablet(s) PO B ID for 4 days then 1 po daily for 4 days No Start Date 11/23/2018 Inactive Benicar HCT 40 mg-25 mg Tab RxNorm: 645518 1 Tablet(s) PO QD No Sta rt [...] Date S ervice Location MICROALBUMIN URINE RANDOM 03563 MICRL MG/L 5.8 MG/L 03/2011 Unknown MICROALBUMIN URINE RANDOM 04126 XM.ALB/CRE 5.2 MG/GCR Unknown MICROALBUMIN URINE RANDOM 13661 CREAT MG/D 111 MG/DL 03/2011 Unknown MICROALBUMIN URINE RANDOM 70197 CRE/100 1.11 G/L 12/24 Unknown Procedures Procedure Codes Date FLU VACC PRSV FREE INC ANTIG 65 AND OLDER CPT-4: 88615 03/04/2019 ADMIN PNEUMOCOCCAL VACCINE CPT-4: G0009 03/04/2019 ADMIN INFLUENZA VIRUS VAC CPT-4: G0008 03/04/2019 FLU VACC PRSV FREE INC ANTIG 65 AND OLDER CPT-4: 84284 03/04/2019 PNEUMOCOCCAL VACC 23 [facility] IM CPT-4: 54092 03/04/2019 THER/PROPH/DIAG INJ SC/IM CPT-4: 91447 08/11/2018 TRIAMCINOLONE ACET INJ NOS CPT-4: J3301 08/11/2018 DEXAMETHASONE SODIUM PHOS CPT-4: J1100 08/11/2018 THER/PROPH/DIAG INJ SC/IM CPT-4: 83327 07/16/2018 METHYLPREDNISOLONE INJECTION CPT-4: J2930 07/16/2018 INFLUENZA ASSAY W/OPTIC CPT-4: 85850 07/16/2018 THER/PROPH/DIAG INJ SC/IM CPT-4: 84306 07/13/2018 TRIAMCINOLONE ACET INJ NOS CPT-4: J3301 07/13/2018 THER/PROPH/DIAG INJ SC/IM CPT-4: 57587 05/04/2018 METHYLPREDNISOLONE INJECTION CPT-4: J2930 05/04/2018 FLU VACC PRSV FREE INC ANTIG 65 AND OLDER CPT-4: 22966 02/10/2018 PNEUMOCOCCAL VACC 13 [facility] IM CPT-4: 96449 02/10/2018 ADMIN INFLUENZA VIRUS VAC CPT-4: G0008 02/10/2018 ADMIN PNEUMOCOCCAL VACCINE CPT-4: G0009 02/10/2018 THER/PROPH/DIAG INJ SC/IM CPT-4: 09635 09/09/2017 TRIAMCINOLONE ACET INJ NOS CPT-4: J3301 09/09/2017 ALBUTEROL NON-COMP UNIT CPT-4: J7613 04/10/2017 AIRWAY INHALATION TREATMENT CPT-4: 11930 04/10/2017 PRESCRIP TRANSMIT VIA ERX SY CPT-4: G8553 04/10/2017 FLU VACC PRSV FREE INC ANTIG 65 AND OLDER CPT-4: 45226 03/28/2017 ADMIN INFLUENZA VIRUS VAC CPT-4: G0008 03/28/2017 PRESCRIP TRANSMIT VIA ERX SY CPT-4: G8553 08/27/2016 PRESCRIP TRANSMIT VIA ERX SY CPT-4: G8553 06/14/2016 ALBUTEROL NON-COMP UNIT CPT-4: J7613 06/13/2016 AIRWAY INHALATION TREATMENT CPT-4: 72938 06/13/2016 PRESCRIP TRANSMIT VIA ERX SY CPT-4: [...] CPT-4: G8553 11/07/2014 THER/PROPH/DIAG INJ SC/IM CPT-4: 09680 09/21/2014 METHYLPREDNISOLONE INJECTION CPT-4: J2930 09/21/2014 PRESCRIP TRANSMIT VIA ERX SY CPT-4: G8553 09/21/2014 PRESCRIP TRANSMIT VIA ERX SY CPT-4: G8553 06/10/2014 URINALYSIS NONAUTO W/O SCOPE CPT-4: 92706 06/01/2012 PRESCRIP TRANSMIT VIA ERX SY CPT-4: G8553 05/25/2012 PRESCRIP TRANSMIT VIA ERX SY CPT-4: G8553 12/03/2011 CUR TOBACCO NON-USER CPT-4: G8457 05/30/2011 PRESCRIP TRANSMIT VIA ERX SY CPT-4: G8553 05/30/2011 URINALYSIS NONAUTO W/O SCOPE CPT-4: 15562 01/01/2011 URINE CULTURE/ COLONY COUNT CPT-4: 94188 01/01/2011 CUR TOBACCO NON-USER CPT-4: G8457 01/01/2011 [...] 1: 114/68 Code: 8480-6 BMI: 43.5 Code: 14844-0 Heart Rate 1: 52 bpm Height: 6'1" [...] 1: 136/72 Code: 8480-6 BMI: 42.7 Code: 39637-3 Heart Rate 1: 60 bpm Height: 6'1" Respiratory Rate: 22 bpm SpO2: 95% Tempera ture: 37.1 (C) / 98.7 (F) Weight: 324 lbs 02/10/2018 Blood Pressure 1: 146/78 Code: 8480-6 BMI: 42.4 Code: 72974-1 Heart Rate 1: 64 bpm Height: 6'1" Respiratory Rate: 22 bpm SpO2: 95% Tempera ture: 36.5 (C) / 97.7 (F) Weight: 321 lbs 11/05/2017 Blood Pressure 1: 128/84 Code: 8480-6 BMI: 42.9 Code: 64621-1 Heart Rate 1: 52 bpm Height: 6'1" Respiratory Rate: 22 bpm SpO2: 95% Tempera ture: 36.3 (C) / 97.3 (F) Weight: 325 lbs 09/09/2017 Blood Pressure 1: 162/90 Code: 8480-6 BMI: 42.5 Code: 41015-9 Heart Rate 1: 60 bpm Height: 6'1" Respiratory Rate: 24 bpm SpO2: 95% Tempera ture: 36.4 (C) / 97.6 (F) Weight: 322 lbs 08/07/2017 Blood Pressure 1: 152/90 Code: 8480-6 BMI: 42.2 Code: 49181-2 Heart Rate 1: 60 bpm Height: 6'1" Respiratory Rate: 26 bpm SpO2: 94% Tempera ture: 36.6 (C) / 97.8 (F) Weight: 320 lbs 08/04/2017 Blood Pressure 1: 150/86 Code: 8480-6 BMI: 42.7 Code: 74746-2 Heart Rate 1: 64 bpm Height: 6'1" Respiratory Rate: 20 bpm SpO2: 94% Tempera ture: 36.3 (C) / 97.3 (F) Weight: 324 lbs 06/04/2017 Blood Pressure 1: 164/90 Code: 8480-6 Heart Rate 1: 60 bpm Respiratory Rate: 24 bpm SpO2: 94% Temperature: 36.8 (C) / 98.3 (F) 06/02/2017 Blood Pressure 1: 162/80 Code: 8480-6 BMI: 42.9 Code: 34109-7 Heart Rate 1: 66 bpm Height: 6'1" Respiratory Rate: 22 bpm SpO2: 98% Tempera ture: 36.6 (C) / 97.8 (F) Weight: 325 lbs 05/05/2017 Blood Pressure 1: 164/94 Code: 8480-6 BMI: 41.4 Code: 78372-5 Heart Rate 1: 64 bpm Height: 6'1" Respiratory Rate: 22 bpm SpO2: 95% Tempera ture: 36.4 (C) / 97.5 (F) Weight: 314 lbs 04/10/2017 Blood Pressure 1: 136/78 Code: 8480-6 BMI: 42.0 Code: 75316-9 Heart Rate 1: 76 bpm Height: 6'1" Respiratory Rate: 24 bpm SpO2: 92% Tempera ture: 35.9 (C) / 96.7 (F) Weight: 318 lbs 02/03/2017 Blood Pressure 1: 134/82 Code: 8480-6 BMI: 41.7 Code: 66281-7 Heart Rate 1: 72 bpm Height: 6'1" Respiratory Rate: 24 bpm SpO2: 95% Tempera ture: 36.1 (C) / 97.0 (F) Weight: 316 lbs 10/30/2016 Blood Pressure 1: 126/74 Code: 8480-6 BMI: 41.3 Code: 59069-5 Heart Rate 1: 68 bpm Height: 6'1" Respiratory Rate: 20 bpm Temperature: 37 .1 (C) / 98.8 (F) Weight: 313 lbs 08/30/2016 Blood Pressure 1: 146/80 Code: 8480-6 BMI: 41.7 Code: 90996-3 Heart Rate 1: 64 bpm Height: 6'1" Respiratory Rate: 24 bpm SpO2: 94% Tempera ture: 36.6 (C) / 97.8 (F) Weight: 316 lbs 08/27/2016 Blood Pressure 1: 124/78 Code: 8480-6 Heart Rate 1: 66 bpm Height: 6'2" Respiratory Rate: 18 bpm SpO2: 94% Temperature: 36.6 (C) / 97.8 (F) Weight: 07/02/2016 Blood Pressure 1: 126/78 Code: 8480-6 BMI: 41.4 Code: 78969-0 Heart Rate 1: 68 bpm Height: 6'1" Respiratory Rate: 24 bpm SpO2: 94% Tempera ture: 36.6 (C) / 97.8 (F) Weight: 314 lbs 06/14/2016 Blood Pressure 1: 146/82 Code: 8480-6 Heart Rate 1: 80 bpm Respiratory Rate: 20 bpm SpO2: 95% Temperature: 37.3 (C) / 99.2 (F) 06/13/2016 Blood Pressure 1: 146/84 Code: 8480-6 BMI: 40.5 Code: 74555-3 Heart Rate 1: 66 bpm Height: 6'1" Respiratory Rate: 28 bpm SpO2: 93% Tempera ture: 35.8 (C) / 96.4 (F) Weight: 307 lbs 05/14/2016 Blood Pressure 1: 146/90 Code: 8480-6 BMI: 41.2 Code: 35595-1 Heart Rate 1: 68 bpm Height: 6'1" Respiratory Rate: 26 bpm Temperature: 36 .8 (C) / 98.2 (F) Weight: 312 lbs 04/29/2016 Blood Pressure 1: 152/90 Code: 8480-6 BMI: 41.0 Code: 09591-3 Heart Rate 1: 68 bpm Height: 6'1" Respiratory Rate: 26 bpm SpO2: 94% Tempera ture: 36.1 (C) / 96.9 (F) Weight: 311 lbs 04/22/2016 Blood Pressure 1: 152/94 Code: 8480-6 BMI: 40.9 Code: 66164-5 Heart Rate 1: 68 bpm Height: 6'1" Respiratory Rate: 24 bpm SpO2: 94% Tempera ture: 36.2 (C) / 97.2 (F) Weight: 310 lbs 04/01/2016 Blood Pressure 1: 156/78 Code: 8480-6 BMI: 40.6 Code: 53287-2 Heart Rate 1: 84 bpm Height: 6'1" Respiratory Rate: 22 bpm SpO2: 95% Tempera ture: 37.1 (C) / 98.7 (F) Weight: 308 lbs 11/30/2015 Blood Pressure 1: 142/80 Code: 8480-6 BMI: 40.5 Code: 00964-5 Heart Rate 1: 88 bpm Height: 6'1" Respiratory Rate: 22 bpm Temperature: 36 .2 (C) / 97.2 (F) Weight: 307 lbs 08/29/2015 Blood Pressure 1: 132/70 Code: 8480-6 BMI: 40.0 Code: 24025-2 Heart Rate 1: 76 bpm Height: 6'1" Respiratory Rate: 24 bpm SpO2: 96% Tempera ture: 36.7 (C) / 98.0 (F) Weight: 303 lbs 08/14/2015 Blood Pressure 1: 126/80 Code: 8480-6 BMI: 39.4 Code: 04610-4 Heart Rate 1: 92 bpm Height: 6'1" Respiratory Rate: 24 bpm SpO2: 94% Tempera ture: 37.8 (C) / 100.0 (F) Weight: 299 lbs 08/09/2015 Blood Pressure 1: 146/82 Code: 8480-6 Heart Rate 1: 82 bpm Respiratory Rate: 22 bpm SpO2: 93% Temperature: 35.9 (C) / 96.6 (F) We ight: 310 lbs 05/22/2015 Blood Pressure 1: 156/76 Code: 8480-6 BMI: 41.0 Code: 80513-9 Heart Rate 1: 100 bpm Height: 6'1" Respiratory Rate: 22 bpm Temperature: 37 .2 (C) / 98.9 (F) Weight: 311 lbs 02/13/2015 Blood Pressure 1: 166/90 Code: 8480-6 BMI: 41.2 Code: 68203-8 Heart Rate 1: 72 bpm Height: 6'1" Respiratory Rate: 24 bpm SpO2: 93% Tempera ture: 36.9 (C) / 98.5 (F) Weight: 312 lbs 11/07/2014 Blood Pressure 1: 134/70 Code: 8480-6 BMI: 40.5 Code: 19938-1 Heart Rate 1: 76 bpm Height: 6'1" Respiratory Rate: 24 bpm Temperature: 36 .9 (C) / 98.4 (F) Weight: 307 lbs 10/04/2014 Blood Pressure 1: 144/86 Code: 8480-6 BMI: 40.1 Code: 78583-9 Heart Rate 1: 76 bpm Height: 6'1" Respiratory Rate: 28 bpm Temperature: 36 .6 (C) / 97.9 (F) Weight: 304 lbs 09/22/2014 Blood Pressure 1: 142/80 Code: 8480-6 BMI: 40.0 Code: 55513-5 Heart Rate 1: 80 bpm Height: 6'1" Respiratory Rate: 22 bpm SpO2: 96% Tempera ture: 36.6 (C) / 97.8 (F) Weight: 303 lbs 09/21/2014 Blood Pressure 1: 160/66 Code: 8480-6 BMI: 40.0 Code: 04214-5 Heart Rate 1: 90 bpm Height: 6'1" Respiratory Rate: 26 bpm SpO2: 94% Tempera ture: 35.7 (C) / 96.2 (F) Weight: 303 lbs 06/28/2014 Blood Pressure 1: 132/80 Code: 8480-6 BMI: 41.0 Code: 91070-0 Heart Rate 1: 64 bpm Height: 6' Respiratory Rate: 20 bpm Temperature: 36 .7 (C) / 98.0 (F) Weight: 302 lbs 06/10/2014 Blood Pressure 1: 152/70 Code: 8480-6 BMI: 41.1 Code: 01038-6 Heart Rate 1: 76 bpm Height: 6' Respiratory Rate: 20 bpm Temperature: 36 .6 (C) / 97.8 (F) Weight: 303 lbs 03/29/2014 Blood Pressure 1: 132/78 Code: 8480-6 BMI: 40.6 Code: 46259-7 Heart Rate 1: 84 bpm Height: 6' Respiratory Rate: 22 bpm Temperature: 37 .1 (C) / 98.8 (F) Weight: 299 lbs 11/30/2013 Blood Pressure 1: 136/84 Code: 8480-6 BMI: 39.2 Code: 45709-2 Heart Rate 1: 76 bpm Height: 6' Respiratory Rate: 20 bpm Temperature: 36 .8 (C) / 98.2 (F) Weight: 289 lbs 08/03/2013 Blood Pressure 1: 144/80 Code: 8480-6 Heart Rate 1: 86 bpm Respiratory Rate: 20 bpm Temperature: 36.6 (C) / 97.8 (F) Weight: 296 lbs 04/06/2013 Blood Pressure 1: 142/90 Code: 8480-6 BMI: 40.3 Code: 07297-9 Heart Rate 1: 88 bpm Height: 6' Respiratory Rate: 20 bpm Temperature: 36 .6 (C) / 97.8 (F) Weight: 297 lbs 12/01/2012 Blood Pressure 1: 124/78 Code: 8480-6 BMI: 38.7 Code: 53517-3 Heart Rate 1: 76 bpm Height: 6' Respiratory Rate: 20 bpm Temperature: 37 .2 (C) / 98.9 (F) Weight: 285 lbs 08/04/2012 Blood Pressure 1: 128/80 Code: 8480-6 BMI: 38.2 Code: 51486-6 Heart Rate 1: 76 bpm Height: 6' Respiratory Rate: 20 bpm Temperature: 37 .0 (C) / 98.6 (F) Weight: 282 lbs 05/29/2012 Blood Pressure 1: 138/78 Code: 8480-6 BMI: 36.6 Code: 57018-6 Heart Rate 1: 66 bpm Height: 6' Temperature: 36.7 (C) / 98.1 (F) Weight: 270 lbs 05/25/2012 Blood Pressure 1: 128/72 Code: 8480-6 BMI: 39.9 Code: 21121-6 Heart Rate 1: 74 bpm Height: 6' Temperature: 36.1 (C) / 97.0 (F) Weight: 294 lbs 04/07/2012 Blood Pressure 1: 124/76 Code: 8480-6 BMI: 39.9 Code: 14379-7 Heart Rate 1: 72 bpm Height: 6' Respiratory Rate: 20 bpm Temperature: 36 .9 (C) / 98.5 (F) Weight: 294 lbs 12/16/2011 Blood Pressure 1: 128/80 Code: 8480-6 BMI: 40.8 Code: 62422-3 Heart Rate 1: 74 bpm Height: 6' Temperature: 36.6 (C) / 97.8 (F) Weight: 301 lbs 12/03/2011 Blood Pressure 1: 132/76 Code: 8480-6 BMI: 40.8 Code: 04609-0 Heart Rate 1: 68 bpm Height: 6' Respiratory Rate: 20 bpm Temperature: 36 .8 (C) / 98.2 (F) Weight: 301 lbs 08/29/2011 Blood Pressure 1: 140/68 Code: 8480-6 BMI: 40.8 Code: 91328-7 Heart Rate 1: 80 bpm Height: 6' Respiratory Rate: 20 bpm Temperature: 36 .4 (C) / 97.6 (F) Weight: 301 lbs 05/30/2011 Blood Pressure 1: 134/82 Code: 8480-6 BMI: 41.5 Code: 75116-0 Heart Rate 1: 76 bpm Height: 6' [...] 1: 126/72 Code: 8480-6 BMI: 41.2 Code: 49266-5 Heart Rate 1: 76 bpm Height: 6' [...] 1: 152/90 Code: 8480-6 BMI: 37.7 Code: 88214-7 Heart Rate 1: 92 bpm Height: 6'1" [...] with diabetic neuropathy, unspecified[ICD10: E11.40] Neela [facility] CPT-4: 11307 12/01/2019 ([id number]) OFFICE/OUTPATIENT VISIT EST Diagnosis: Chronic obstructive pulmonary disease, unspecified[ICD10: J44.9] Diagnosis: Essential (primary) hypertension[ICD10: I10] Diagnosis: Mixed hyperlipidemia[ICD10: E78.2] Diagnosis: Type 2 diabetes mellitus with hyperglycemia[ICD10: E11.65] Neela [facility] CPT-4: 58782 08/30/2019 ([id number]) OFFICE/OUTPATIENT VISIT EST Diagnosis: Chronic obstructive pulmonary disease with (acute) exacerbation[ICD10: J44.1] Neela [facility] CPT- 4: 36485 08/10/2019 ([id number]) OFFICE/OUTPATIENT VISIT EST Diagnosis: Sore on toe[ICD10: L98.9] [facility]ela [facility] CPT-4: 86865 07/06/2019 ([id number]) OFFICE/OUTPATIENT VISIT EST Diagnosis: Advanced chronic obstructive pulmonary disease[ICD10: J44.9] 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] [facility]: 49481 05/10/2019 ([id number]) OFFICE/OUTPATIENT VISIT EST Diagnosis: Chronic obstructive pulmonary disease with (acute) exacerbation[ICD10: J44.1] Diagnosis: Hypokalemia[ICD10: E87.6] 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] [facility]: 83658 03/29/2019 ([id number]) NURSE/OUTPATIENT VISIT EST Diagnosis: PNEUMOCOCCAL VACCINE[ICD10: Z23] [facility]: 11067 03/04/2019 ([id number]) OFFICE/OUTPATIENT VISIT EST Diagnosis: Chronic obstructive pulmonary disease with (acute) exacerbation[ICD10: J44.1] Diagnosis: Other nonspecific abnormal finding of lung field[ICD10: R91.8] [facility] CPT-[facility]: 38368 01/05/2019 ([id number]) OFFICE/OUTPATIENT VISIT EST Diagnosis: Solitary pulmonary nodule[ICD10: R91.1] 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] Diagnosis: Tinea corporis[ICD10: B35.4] [facility] CPT-[facility]: 82100 12/09/2018 ([id number]) OFFICE/OUTPATIENT VISIT EST Diagnosis: COUGH[ICD10: R05] Diagnosis: Chronic obstructive pulmonary disease, unspecified[ICD10: J44.9] Diagnosis: Other disorders of lung[ICD10: J98.4] Diagnosis: Other nonspecific abnormal finding of lung field[ICD10: R91.8] [facility] CPT-4: 95843 11/24/2018 ([id number]) OFFICE/OUTPATIENT VISIT EST Diagnosis: Pneumonia, unspecified organism[ICD10: J18.9] Amita [facility] [place] [facility] CPT-4: 65979 09/16/2018 ([id number]) OFFICE/OUTPATIENT VISIT EST Diagnosis: Pneumonia, unspecified organism[ICD10: J18.9] Neela [facility] [place] [facility] CPT-4: 71771 09/03/2018 ([id number]) OFFICE/OUTPATIENT VISIT EST Diagnosis: Personal history of pneumonia (recurrent)[ICD10: Z87.01] Diagnosis: Cough[ICD10: R05] Diagnosis: Essential (primary) hypertension[ICD10: I10] Diagnosis: Type 2 diabetes mellitus with hyperglycemia[ICD10: E11.65] Amita [facility]MAN [place] [facility] CPT-4: 62213 08/27/2018 OFFICE/OUTPATIENT VISIT EST Diagnosis: Pneumonia, unspecified organism[ICD10: J18.9] Diagnosis: Chronic obstructive pulmonary disease with (acute) exacerbation[ICD10: J44.1] Diagnosis: Other specified symptoms and signs involving the circulatory and respiratory systems[ICD10: R09.89] Diagnosis: Essential (primary) hypertension[ICD10: I10] Amita HYMAN [place] [facility] CPT-4: 48777 08/13/2018 OFFICE/OUTPATIENT VISIT EST Diagnosis: Pneumonia, unspecified organism[ICD10: J18.9] Diagnosis: Other specified symptoms and signs involving the circulatory and respiratory systems[ICD10: R09.89] Amitacalvin HYMAN [place] [facility] CPT-4: 35105 08/11/2018 ([id number]) OFFICE/OUTPATIENT VISIT EST Diagnosis: Dyspnea, unspecified[ICD10: R06.00] Diagnosis: Chronic obstructive pulmonary disease with (acute) exacerbation[ICD10: J44.1] Diagnosis: Pneumonia, unspecified organism[ICD10: J18.9] Amitacalvin HYMAN [place] [facility] CPT-4: 47621 07/16/2018 ([id number]) OFFICE/OUTPATIENT VISIT EST Diagnosis: Acute bronchitis due to other specified organisms[ICD10: J20.8] Diagnosis: Cough[ICD10: R05] Amita Santiago [facility] [place] [facility] T-4: 02087 07/13/2018 ([id number]) OFFICE/OUTPATIENT VISIT EST Diagnosis: Essential (primary) hypertension[ICD10: I10] Diagnosis: Chronic obstructive pulmonary disease, unspecified[ICD10: J44.9] Diagnosis: Type 2 diabetes mellitus with hyperglycemia[ICD10: E11.65] Diagnosis: Mixed hyperlipidemia[ICD10: E78.2] Neela Sergemelany FRIEND ASHER HYMAN [place] [facility] CPT-4: 43728 06/03/2018 ([id number]) OFFICE/OUTPATIENT VISIT EST Diagnosis: Chronic obstructive pulmonary disease, unspecified[ICD10: J44.9] Gely HYMAN [place] [facility] CPT-4: 50579 05/04/2018 ([id number]) OFFICE/OUTPATIENT VISIT EST Diagnosis: Essential (primary) hypertension[ICD10: I10] Diagnosis: Localized edema[ICD10: R60.0] Neela Yenni MIRZALINE Octavio HYMAN [place] [facility] CPT-4: 56471 03/03/2018 ([id number]) OFFICE/OUTPATIENT VISIT EST Diagnosis: Localized edema[ICD10: R60.0] Neela MIRZALINE Octavio HYMAN [place] [facility] CPT-4: 10394 02/17/2018 ([id number]) OFFICE/OUTPATIENT VISIT EST Diagnosis: FLU VACCINE[ICD10: Z23] Diagnosis: PNEUMOCOCCAL VACCINE[ICD10: Z23] Diagnosis: Type 2 diabetes mellitus without complications[ICD10: E11.9] Diagnosis: Mixed hyperlipidemia[ICD10: E78.2] Diagnosis: Essential (primary) hypertension[ICD10: I10] Diagnosis: Localized edema[ICD10: R60.0] Diagnosis: Chronic obstructive pulmonary disease, unspecified[ICD10: J44.9] Neela MIRZALINE Octavio [facility] [place] [facility] CPT-4: 39845 02/10/2018 ([id number]) OFFICE/OUTPATIENT VISIT EST Diagnosis: Type 2 diabetes mellitus with hyperglycemia[ICD10: E11.65] Diagnosis: Mixed hyperlipidemia[ICD10: E78.2] Diagnosis: Essential (primary) hypertension[ICD10: I10] Diagnosis: Chronic obstructive pulmonary disease, unspecified[ICD10: J44.9] Diagnosis: Cutaneous abscess of back [any part, except buttock][ICD10: L02.212] Neela HYMAN [place] [facility] CPT-4: 03722 11/05/2017 ([id number]) OFFICE/OUTPATIENT VISIT EST Diagnosis: Allergic urticaria[ICD10: L50.0] Gely HYMAN DO [facility] CPT-4: 62195 09/09/2017 ([id number]) OFFICE/OUTPATIENT VISIT EST Diagnosis: Generalized enlarged lymph nodes[ICD10: R59.1] Diagnosis: Acute gastritis without bleeding[ICD10: K29.00] Gely HYMAN DO [facility] CPT-4: 04788 08/07/2017 ([id number]) OFFICE/OUTPATIENT VISIT EST Diagnosis: Type 2 diabetes mellitus without complications[ICD10: E11.9] Diagnosis: Mixed hyperlipidemia[ICD10: E78.2] Diagnosis: Essential (primary) hypertension[ICD10: I10] Neela HYMAN [place] [facility] CPT-4: 94252 08/04/2017 ([id number]) OFFICE/OUTPATIENT VISIT EST Diagnosis: Zoster without complications[ICD10: B02.9] Diagnosis: Acute sialoadenitis[ICD10: K11.21] Gely HYMAN [place] [facility] CPT-4: 35217 06/04/2017 OFFICE/OUTPATIENT VISIT EST Diagnosis: Zoster without complications[ICD10: B02.9] Diagnosis: Acute sialoadenitis[ICD10: K11.21] Gely HYMAN [place] [facility] CPT-4: 16507 06/02/2017 ([id number]) OFFICE/OUTPATIENT VISIT EST Diagnosis: Type 2 diabetes mellitus without complications[ICD10: E11.9] Diagnosis: Mixed hyperlipidemia[ICD10: E78.2] Diagnosis: Essential (primary) hypertension[ICD10: I10] Diagnosis: Chronic obstructive pulmonary disease, unspecified[ICD10: J44.9] Neela HYMAN DO [facility] CPT-4: 32999 05/05/2017 OFFICE/OUTPATIENT VISIT EST Diagnosis: Chronic obstructive pulmonary disease with acute lower respiratory infection[ICD10: J44.0] Diagnosis: Impacted cerumen, bilateral[ICD10: H61.23] Gely HYMAN [facility] CPT-4: 93832 04/10/2017 ([id number]) OFFICE/OUTPATIENT VISIT EST Diagnosis: FLU VACCINE[ICD10: Z23] Neela BUI [facility] CPT-4: 30952 03/28/2017 ([id number]) OFFICE/OUTPATIENT VISIT EST Diagnosis: Type 2 diabetes mellitus without complications[ICD10: E11.9] Diagnosis: Mixed hyperlipidemia[ICD10: E78.2] Diagnosis: Essential (primary) hypertension[ICD10: I10] Diagnosis: Chronic obstructive pulmonary disease, unspecified[ICD10: J44.9] Neela HYMAN [facility] CPT-4: 79545 02/03/2017 ([id number]) OFFICE/OUTPATIENT VISIT EST Diagnosis: Type 2 diabetes mellitus with hyperglycemia[ICD10: E11.65] Diagnosis: Mixed hyperlipidemia[ICD10: E78.2] Diagnosis: Essential (primary) hypertension[ICD10: I10] Diagnosis: Chronic obstructive pulmonary disease, unspecified[ICD10: J44.9] Neela HYMAN [place] [facility] CPT-4: 32195 10/30/2016 ([id number]) NO CHARGE Diagnosis: Acute bronchitis, unspecified[ICD10: J20.9] Sammi HYMAN [facility] CPT-4: 79469 08/30/2016 ([id number]) OFFICE/OUTPATIENT VISIT EST Diagnosis: Acute bronchitis, unspecified[ICD10: J20.9] Diagnosis: Other seasonal allergic rhinitis[ICD10: J30.2] Sammi HYMAN [facility] CPT-4: 91367 08/27/2016 ([id number]) OFFICE/OUTPATIENT VISIT EST Diagnosis: Type 2 diabetes mellitus without complications[ICD10: E11.9] Diagnosis: Mixed hyperlipidemia[ICD10: E78.2] Diagnosis: Essential (primary) hypertension[ICD10: I10] Neela HYMAN [facility] CPT-4: 16669 07/02/2016 ([id number]) OFFICE/OUTPATIENT VISIT EST Diagnosis: Acute bronchitis, unspecified[ICD10: J20.9] Sammi HYMAN DO [facility] CPT-4: 56469 06/14/2016 ([id number]) OFFICE/OUTPATIENT VISIT EST Diagnosis: Acute bronchitis, unspecified[ICD10: J20.9] Sammi HYMAN DO [facility] CPT-4: 86645 06/13/2016 ([id number]) OFFICE/OUTPATIENT VISIT EST Diagnosis: Essential (primary) hypertension[ICD10: I10] Neela HYMAN DO [facility] CPT-4: 56803 05/14/2016 ([id number]) OFFICE/OUTPATIENT VISIT EST Diagnosis: Essential (primary) hypertension[ICD10: I10] Neela HYMAN DO [facility] CPT-4: 71875 04/29/2016 ([id number]) OFFICE/OUTPATIENT VISIT EST Diagnosis: Unspecified abdominal pain[ICD10: R10.9] Diagnosis: Left lower quadrant pain[ICD10: R10.32] Diagnosis: Left upper quadrant pain[ICD10: R10.12] Diagnosis: Essential (primary) hypertension[ICD10: I10] Neela HYMAN DO [facility] CPT-4: 54626 04/22/2016 ([id number]) OFFICE/OUTPATIENT VISIT EST Diagnosis: Type 2 diabetes mellitus without complications[ICD10: E11.9] Diagnosis: Mixed hyperlipidemia[ICD10: E78.2] Diagnosis: Essential (primary) hypertension[ICD10: I10] Neela HYMAN DO [facility] CPT-4: 17980 04/01/2016 ([id number]) OFFICE/OUTPATIENT VISIT EST Diagnosis: Type 2 diabetes mellitus with hyperglycemia[ICD10: E11.65] Diagnosis: Mixed hyperlipidemia[ICD10: E78.2] Diagnosis: Essential (primary) hypertension[ICD10: I10] Neela HYMAN DO [facility] CPT-4: 94335 11/30/2015 ([id number]) OFFICE/OUTPATIENT VISIT EST Diagnosis: Type 2 diabetes mellitus with diabetic neuropathy, unspecified[ICD10: E11.40] Diagnosis: Essential (primary) hypertension[ICD10: I10] Diagnosis: Mixed hyperlipidemia[ICD10: E78.2] Neela STERLING Octavio HYMAN DO [facility] CPT-4: 46540 08/29/2015 ([id number]) OFFICE/OUTPATIENT VISIT EST Diagnosis: COUGH[ICD10: R05] Diagnosis: Wheezing[ICD10: R06.2] Diagnosis: Type 2 diabetes mellitus with diabetic neuropathy, unspecified[ICD10: E11.40] Neela MURILLO JulissaMendez YENNI ARTHUR [facility] CPT-4: 46776 08/14/2015 ([id number]) OFFICE/OUTPATIENT VISIT EST Diagnosis: Other seasonal allergic rhinitis[ICD10: J30.2] Diagnosis: Dyspnea, unspecified[ICD10: R06.00] Diagnosis: Wheezing[ICD10: R06.2] Sammi Najera NEELA Cunningham YENNI ARTHUR [facility] CPT-4: 99094 08/09/2015 ([id number]) OFFICE/OUTPATIENT VISIT EST Diagnosis: Essential (primary) hypertension[ICD10: I10] Diagnosis: Type 2 diabetes mellitus with hyperglycemia[ICD10: E11.65] Diagnosis: Mixed hyperlipidemia[ICD10: E78.2] Neela STERLING Octavio HYMAN [place] [facility] CPT-4: 45861 05/22/2015 ([id number]) OFFICE/OUTPATIENT VISIT EST Diagnosis: 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] Diagnosis: - I - HYPERTENSION[ICD9: 401.9] Diagnosis: - I - HYPERLIPIDEMIA NEC/NOS[ICD9: 272.4] Diagnosis: Left hand paresthesia[ICD9: 782.0] Neela STERLING Octavio HYMAN [place] [facility] CPT-4: 69917 02/13/2015 ([id number]) OFFICE/OUTPATIENT VISIT EST Diagnosis: HYPERLIPIDEMIA NEC/NOS[ICD9: 272.4] Diagnosis: 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] Neela MURILLO JulissaMendez YENNI [place] [facility] CPT-4: 84323 11/07/2014 ([id number]) OFFICE/OUTPATIENT VISIT EST Diagnosis: ALLERGIC RHINITIS[ICD9: 477.9] Diagnosis: WHEEZING[ICD9: 786.07] Neela BADILLO [facility] CPT-4: 89157 10/04/2014 ([id number]) OFFICE/OUTPATIENT VISIT EST Diagnosis: BRONCHITIS, ACUTE[ICD9: 466.0] Diagnosis: WHEEZING[ICD9: 786.07] Loren Duarte [facility] CPT-4: 19643 09/22/2014 ([id number]) OFFICE/OUTPATIENT VISIT EST Diagnosis: DYSPNEA[ICD9: 786.09] Diagnosis: WHEEZING[ICD9: 786.07] Diagnosis: Arrhythmia[ICD9: 427.9] Loren BUI [facility] CPT-4: 63563 09/21/2014 ([id number]) OFFICE/OUTPATIENT VISIT EST Diagnosis: 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, 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] Diagnosis: - I - HYPERLIPIDEMIA NEC/NOS[ICD9: 272.4] Diagnosis: - I - HYPERTENSION[ICD9: 401.9] [facility] CPT-[facility]: 99236 06/28/2014 OFFICE/OUTPATIENT VISIT EST Diagnosis: SINUSITIS, ACUTE[ICD9: 461.9] Diagnosis: OTITIS MEDIA NOS[ICD9: 382.9] Sarah Cunningham [facility] CPT-[facility]: 48053 06/10/2014 ([id number]) OFFICE/OUTPATIENT VISIT EST Diagnosis: 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] Diagnosis: - I - HYPERLIPIDEMIA NEC/NOS[ICD9: 272.4] Diagnosis: - I - HYPERTENSION[ICD9: 401.9] [facility] CPT-[facility]: 51689 03/29/2014 ([id number]) OFFICE/OUTPATIENT VISIT EST Diagnosis: 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] Diagnosis: - I - HYPERTENSION[ICD9: 401.9] Diagnosis: - I - HYPERLIPIDEMIA NEC/NOS[ICD9: 272.4] Diagnosis: Hand lesion[ICD9: 709.9] Neela MURILLO JulissaMendez [facility] CPT-4: 21984 11/30/2013 ([id number]) OFFICE/OUTPATIENT VISIT EST Diagnosis: 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] Diagnosis: HYPERLIPIDEMIA NEC/NOS[ICD9: 272.4] Diagnosis: HYPERTENSION[ICD9: 401.9] Neela VASQUEZ [facility] CPT-4: 81832 08/03/2013 ([id number]) OFFICE/OUTPATIENT VISIT EST Diagnosis: 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, 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] Diagnosis: HYPERTENSION[ICD9: 401.9] Diagnosis: HYPERLIPIDEMIA NEC/NOS[ICD9: 272.4] Neela HYMAN [facility] CPT-4: 45691 04/06/2013 ([id number]) OFFICE/OUTPATIENT VISIT EST Diagnosis: 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] Diagnosis: HYPERLIPIDEMIA NEC/NOS[ICD9: 272.4] Diagnosis: HYPERTENSION[ICD9: 401.9] [facility]: 11379 12/01/2012 ([id number]) OFFICE/OUTPATIENT VISIT EST Diagnosis: 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] Diagnosis: HYPERTENSION[ICD9: 401.9] Diagnosis: HYPERLIPIDEMIA NEC/NOS[ICD9: 272.4] Neela HYMAN [facility] CPT-4: 50376 08/04/2012 ([id number]) OFFICE/OUTPATIENT VISIT EST Diagnosis: URINARY FREQUENCY[ICD9: 788.41] Neela Sergegemmainna HYMAN [facility] CPT-4: 69473 06/01/2012 OFFICE/OUTPATIENT VISIT EST Diagnosis: Agitation[ICD9: 307.9] Diagnosis: Frequent urination[ICD9: 788.41] Janet Jean Baptiste NEELA Octavio HYMAN [facility] CPT-4: 18169 05/29/2012 OFFICE/OUTPATIENT VISIT EST Diagnosis: SINUSITIS, ACUTE[ICD9: 461.9] Diagnosis: OTALGIA[ICD9: 388.70] Neela Sergegemmainna MIRZANEELA Octavio HYMAN [facility] CPT-4: 54138 05/25/2012 OFFICE/OUTPATIENT VISIT EST Diagnosis: 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, 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] Diagnosis: HYPERTENSION[ICD9: 401.9] Diagnosis: HYPERLIPIDEMIA NEC/NOS[ICD9: 272.4] Neela GREGORIO SMendez ORENDER DO [facility] CPT-4: 63959 04/07/2012 OFFICE/OUTPATIENT VISIT EST Diagnosis: FINGER INJURY[ICD9: 959.5] Janet Jean Baptiste NEELA Cunningham AXEL ARPIT [facility] CPT-4: 31546 12/16/2011 ([id number]) OFFICE/OUTPATIENT VISIT EST Diagnosis: 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, 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] Diagnosis: HYPERTENSION[ICD9: 401.9] Diagnosis: HYPERLIPIDEMIA NEC/NOS[ICD9: 272.4] Neela GREGORIO SMendez ORENDER [facility] CPT-4: 83919 12/03/2011 ([id number]) OFFICE/OUTPATIENT VISIT EST Diagnosis: 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] Diagnosis: HYPERLIPIDEMIA NEC/NOS[ICD9: 272.4] Diagnosis: HYPERTENSION[ICD9: 401.9] Neela Cunningham ORE NDER DO [facility] CPT-4: 74093 08/29/2011 OFFICE/OUTPATIENT VISIT EST Diagnosis: 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] Diagnosis: HYPERLIPIDEMIA NEC/NOS[ICD9: 272.4] Diagnosis: HYPERTENSION[ICD9: 401.9] Neela MURILLO SMendez ORE NDER DO [facility] CPT-4: 06079 05/30/2011 OFFICE/OUTPATIENT VISIT EST Diagnosis: SKIN SENSATION DISTURB[ICD9: 782.0] Neela GREGORIO SMendez ORENDER DO [facility] CPT-4: 82875 01/29/2011 OFFICE/OUTPATIENT VISIT EST Diagnosis: SKIN SENSATION DISTURB[ICD9: 782.0] Neela GREGORIO SMendez ORENDER DO [facility] CPT-4: 29944 01/14/2011 OFFICE/OUTPATIENT VISIT EST Neela MURILLO SMendez SERGE NDER DO [facility] CPT- 4: 57941 01/01/2011 OFFICE/OUTPATIENT VISIT EST Neela Cunningham ORE NDER DO [facility] CPT- 4: 42190 11/29/2010 ([id number]) OFFICE/OUTPATIENT VISIT RENETTA HORAN SMendez [facility] CPT-4: 38594 08/28/2010 ([id number]) OFFICE/OUTPATIENT VISIT, EST [facility] CPT-4: 70800 06/05/2010 ([id number]) OFFICE/OUTPATIENT VISIT, EST [facility]ela [facility] CPT-4: 29914 02/05/2010 ([id number]) OFFICE/OUTPATIENT VISIT, EST Neela [facility] CPT-4: 76396 10/09/2009 ([id number]) OFFICE/OUTPATIENT VISIT, [facility]TA [facility] CPT-4: 33815 08/22/2009 Plan of Care Planned Activity Notes [...] : E11.65 08/30/2019 Appointment: Ne[facility]Ptel[facility] [phone] [facility] [facility] 08/30/2019 Visit Diagnosis Plan: [...] : J44.1 08/10/2019 Appointment: Neela Hyman WPtel: [address] [place], [place] [phone] ACUTE ILLNESS 08/10/2019 Visit Diagnosis Plan: Sore on toe Discussion: Keep farhat an/dry Keflex Notify if worsens ICD-9 : 709.9 ICD-10 : L98.9 07/06/2019 Appointment: Neela Hyman WPtel: [address] [place] [address] ACUTE ILLNESS 07/06/2019 Patient Education: Abdoulaye [employer] Blue [id number] [id number] https://www.[employer]/resources/getResource/61/6bq462qj-33q1-7n68-64 Completed 07/06/2019 Visit Diagnosis Plan: Advanced chronic obstructive pul monary disease Discussion: Continue oxygen and pulmonary rehab Follow Up: 3 months ICD-9 : 496 ICD-10 : J44.9 05/10/2019 Visit Diagnosis Plan: Lymphoma involving lung Discussi on: Doing weekly lab and chemo ICD-9 : 202.82 ICD-10 : C85.99 05/10/2019 Appointment: Neela Hyman WPtel: [address] [place], [place] [phone] FOLLOW UP 05/10/2019 Appointment: Neela Hymantel: [address] [place], [place] [phone] he called 04/14/19-- he was at physical [...] : E87.6 03/29/2019 Appointment: Neela Hyman WPtel: [address] [place] [address] Hospital Follow Up 03/29/2019 Appointment: Neela Hyman WPtel: [address] [place], [place] [phone] [place] INJECTION 03/04/2019 Visit Diagnosis Plan: Chronic obstructiv e pulmonary disease with (acute) exacerbation Discussion: Increase SVNS with duoneb to QID Prednisone taper ICD-9 : 491.21 ICD-10 : J44.1 01/05/2019 Visit Diagnosis Plan: Other nonspecific abnormal findi ng of lung field Discussion: Referral to pulmonology--will likely need bronchoscopy--path results discussed ICD-9 : 786.6 ICD-10 : R91.8 01/05/2019 Appointment: Neela Hyman WPtel: [address] [place], [place] [phone] [place] FOLLOW UP 01/05/2019 Patient Education: prednisone- [employer] Coupon [phone] https://www.[employer]/resources/getResource/61/m1rs8491-894m-6r92-xn Completed 01/05/2019 Care Plan: Referral Order SNOMED-CT : 30 [id number] Pending 01/05/2019 Appointment: Neela Hyman WPtel: [address] [place], [place] [address] [place] CANCELED 12/21/2018 Visit Diagnosis Plan: Tinea corporis Discussion: Diflu can--hold simvastatin and fenofibrate while taking ICD-9 : 110.5 ICD-10 : B35.4 12/09/2018 Visit Diagnosis Plan: Solitary pulmonary nodule Discus esmer: CT guided needle biopsy of RUL lung mass ICD-9 : 793.11 ICD-10 : R91.1 12/09/2018 Appointment: Neela Hyman WPtel: [address] [place] [address] [place] FOLLOW UP 12/09/2018 Appointment: Gely Harp [address] [address] [place] NO SHOW 12/01/2018 Visit Diagnosis Plan: [...] : J44.9 11/24/2018 Appointment: Neela Hyman WPtel: [address] [place], [place] [phone] FOLLOW UP 11/24/2018 Care Plan: PET IMAGE FULL BODY LOINC : 4 2711-2 Pending 11/24/2018 Appointment: Neela Hyman WPtel: [address] [place], [place] [phone] [place] Consult 09/21/2018 Visit Diagnosis Plan: Pneumonia, unspecified organism Discussion: Patient clinically improved. Recent CT scan from 09/07 showed unresolved right upper lobe pneumonia. Finished another 7 days of levaquin. Will repeat CBC early next week. Order sent with patient to get done at [facility]. FU CT recommended in 4 weeks. Patient states understanding. ICD-9 : 486 ICD-10 : J18.9 09/16/2018 Appointment: Amita [address] [facility] FOLLOW UP 09/16/2018 Visit Diagnosis Plan: Pneumonia, unspecified organism Discussion: Clinically patient feels and looks much better but need CT scan of chest due to ongoing round pneumonia in association with his known lymphoma ICD-9 : 486 ICD-10 : J18.9 09/03/2018 Appointment: Neela Hyman WPtel: [phone] [id number] FOLLOW UP 09/03/2018 Care Plan: CT THORAX [...] ICD-10 : Z87.01 08/27/2018 Appointment: Amita Henderson [facility] FOLLOW UP 08/27/2018 Visit Diagnosis Plan: Other [...] ICD-10 : I10 08/13/2018 Appointment: Amita Henderson [facility]0 [employer] [id number] LM FOLLOW UP 08/13/2018 Appointment: Amita Henderson [facility] [employer] [id number] CANCELED 08/13/2018 Patient Education: prednisone- Opt[employer]RX Coupon [phone] https://www.[employer]/sampleGrab Media/resources/getResource/61/hq58vc4m-4h79-3oe1-7w Completed 08/13/2018 Visit Diagnosis Plan: Other specified [...] ICD-10 : J18.9 08/11/2018 Appointment: Amita Henderson [facility] [employer] [id number] ACUTE ILLNESS 08/11/2018 Care Plan: CHEST X-RAY 2VW FRONTAL&LATL LOINC : 33827-2 Pending 07/20/2018 Visit Diagnosis Plan: Dyspnea, unspecified Discussion: CXR- to be completed at the hospital. Will call with results and any adjustments in plan. Solumedrol 125 administered in clinic Prednisone 20 mg BID x 5 days- start tomorrow ICD-9 : 786.09 ICD-10 : R06.00 07/16/2018 Appointment: Amita Henderson [address] [place], [place] [address] ACUTE ILLNESS 07/16/2018 Patient Education: prednisone- [employer] Coupon [phone] https://www.[employer]ologix/samplemd/resources/getResource/61/72r5g6tp-tw91-5yl8-p1 Completed 07/16/2018 Visit Diagnosis Plan: Acute bronchitis due to other sp ecified organisms Discussion: Kenalog 40 mg IM administered in clinic. Doxycycline called into [facility]. Take as directed. Continue nebulizer and Trelegy. Follow up if symptoms are not improving with treatment regimen. Patient states understanding of all instruction. ICD-9 : 466.0 ICD-10 : J20.8 07/13/2018 Appointment: Amita Henderson [address] [place], [place] [address] ACUTE ILLNESS 07/13/2018 Patient Education: doxycycline hyclate- OptimizeRX Cou saritha [id number] https://www.[employer]/resources/getResource/61/0u892w43-2c9y-4279-4o Completed 07/13/2018 Care Plan: [place] : [address]-2 Pending 07/13/2018 Care Plan: CBC Pending 07/13/2018 Care Plan: A1C HPLC LOINC : 72602-7 Pending 07/13/2018 Visit Diagnosis Plan: Mixed hyperlipidemia [...] I10 06/03/2018 Appointment: Neela Hyman WPtel: [phone] [facility] FOLLOW UP 06/03/2018 Visit Diagnosis Plan: [...] ICD-10 : J44.9 05/04/2018 Appointment: Gely Harp [address] [place], [place] [phone] ACUTE ILLNESS 05/04/2018 Visit Diagnosis Plan: Localized edema Discussion: Cont inue lasix and potassium at every other day Recheck lab and fwup in 3mos Follow Up: 3 months ICD-9 : 782.3 ICD-10 : R60.0 03/03/2018 Appointment: Neela Hyman WPtel: [address] [place], [place] [phone] FOLLOW UP 03/03/2018 Patient Education: Patient Medication Summary Completed 03/03/2018 Visit Diagnosis Plan: Localized edema Discussion: Finch ge lasix and potassium to every other day Check Chem 7 in 2 weeks and fwup ICD-9 : 782.3 ICD-10 : R60.0 02/17/2018 Appointment: Neela Hyman WPtel: [address] [place], [place] [phone] FOLLOW UP 02/17/2018 Patient Education: Patient Medication [...] : R60.0 02/10/2018 Appointment: Neela Hyman WPtel: [address] [place], [place] [phone] [place] FOLLOW UP 02/10/2018 Patient Education: Patient [...] : L02.212 11/05/2017 Appointment: Neela Hyman WPtel: [address] [place], [place] [phone] [place] FOLLOW UP 11/05/2017 Patient Education: Patient Medication Summary Completed 11/05/2017 Patient Education: Patient Medication Summary Completed 11/03/2017 Care Plan: [place] : [address]-5 Pending 11/03/2017 Care Plan: LIPID PANEL LOINC : 46744-2 Pending 11/03/2017 Care Plan: CBC Pending 11/03/2017 Care Plan: A1C HPLC LOINC : 60953-9 Pending 11/03/2017 Visit Diagnosis Plan: Allergic urticaria [...] ICD-10 : L50.0 09/09/2017 Appointment: Gely Harp [address] [place], [place] [phone] ACUTE ILLNESS 09/09/2017 Patient Education: Patient Medication [...] ICD-10 : R59.1 08/07/2017 Appointment: Gely Harp [address] [place], [place] [phone] Hospital Follow Up 08/07/2017 Patient Education: Patient Medication Summary Completed 08/07/2017 Visit Diagnosis Plan: Type 2 diabetes mellitus without complications Discussion: Accuchecks daily Lab discussed Continue current meds ICD-9 : 250.00 ICD-10 : E11.9 08/04/2017 Visit Diagnosis Plan: Essential (primary) hypertension Discussion: Increase Cardizem CD to 360mg daily ICD-9 : 401.9 ICD-10 : I10 08/04/2017 Appointment: Neela Hyman WPtel: [phone] [facility] FOLLOW UP 08/04/2017 Patient Education: Patient Medication Summary Completed 08/04/2017 Patient Education: Patient Medication Summary Completed 07/31/2017 Care Plan: [place] : [address]-4 Pending 07/31/2017 Care Plan: ASSAY THYROID STIM HORMONE Pen ding 07/31/2017 Care Plan: LIPID PANEL LOINC : 59523-7 Pending 07/31/2017 Care Plan: CBC Pending 07/31/2017 Care Plan: A1C HPLC LOINC : 26013-3 Pending 07/31/2017 Patient Education: Patient Medication Summary Completed 06/19/2017 Patient Education: Patient Medication Summary Completed 06/09/2017 Care Plan: CT SOFT TISSUE [place] : 42[address]-7 Pending 06/09/2017 Visit Diagnosis Plan: Acute sialoadenitis [...] ICD-10 : B02.9 06/04/2017 Appointment: Gely Harp [address] [place] [address] ACUTE ILLNESS 06/04/2017 Patient Education: Patient Medication [...] ICD-10 : B02.9 06/02/2017 Appointment: Gely Harp [address] [place] [address] ACUTE ILLNESS 06/02/2017 Patient Education: Patient Medication [...] E11.9 05/05/2017 Appointment: Neela Hyman WPtel: [phone] [facility] FOLLOW UP 05/05/2017 Patient Education: Patient Medication Summary Completed 05/05/2017 Patient Education: Patient Medication Summary Completed 05/01/2017 Care Plan: A1C HPLC [facility] : 57685-6 Pending 05/01/2017 Visit Diagnosis Plan: Chronic obstructiv [...] ICD-10 : H61.23 04/10/2017 Appointment: Gely Harp [address] [place], [place] [phone] ACUTE ILLNESS 04/10/2017 Patient Education: Patient Medication Summary Completed 04/10/2017 Appointment: Neela Hyman WPtel: [phone] [facility] [place] INJECTION 03/28/2017 Patient Education: Patient Medication [...] : J44.9 02/03/2017 Appointment: Neela Hyman WPtel: [address] [place], [place] [address] [place] FOLLOW UP 02/03/2017 Patient Education: Patient Medication Summary Completed 02/03/2017 Patient Education: Patient Medication Summary Completed 01/30/2017 Care Plan: COMPREH[place] : [address]5745-7 Pending 01/30/2017 Care Plan: LIPID PANEL LOINC : 80287-5 Pending 01/30/2017 Care Plan: CBC Pending 01/30/2017 Care Plan: A1C HPLC LOINC : 87500-3 Pending 01/30/2017 Care Plan: ASSAY OF PSA [...] : E11.65 10/30/2016 Appointment: Neela Hyman WPtel: [facility] [facility] [place] 10/29 lm ~sl 10/30 confirmed~sl FOLLOW UP 11/2016 Patient Education: Patient Medication Summary Completed 10/30/2016 Patient Education: Patient Medication Summary Completed 10/24/2016 Visit Diagnosis Plan: Acute bronchitis, unspecified Di scussion: Patient sounds and looks much improved Continue current regimen Keep appt with Dr Levi for Friday Follow up PRN ICD-9 : 466.0 ICD-10 : J20.9 08/30/2016 Appointment: Sammi [facility]ajera [facility] [facility] 08/29 rang and rang rang 08/30 rang [...] ICD-10 : J20.9 08/27/2016 Appointment[facility]ammi [facility]era5 [facility] [facility] 08/27/2016 Patient Education: Patient Medication Summary Completed 08/27/2016 Care Plan: Referral Order SNOMED-CT : 30 [id number] Pending 08/27/2016 Visit Diagnosis Plan: Type 2 [...] : I10 07/02/2016 Appointment: Neela Hyman WPtel: [address] [place] [address] 07/01 rang and rang`sl FOLLOW UP 7 Patient Education: Patient Medication Summary Completed 07/02/2016 Patient Education: Patient Medication Summary Completed 06/27/2016 Care Plan: LIPID PANEL LOINC : 43048-0 Pending 06/27/2016 Care Plan: [place] : [address]-5 Pending 06/27/2016 Care Plan: A1C HPLC LOINC : 64558-6 Pending 06/27/2016 Visit Diagnosis Plan: Acute bronchitis, [...] ICD-10 : J20.9 06/14/2016 Appointment: Sammi Najera [address] [place], [place] [phone] FOLLOW UP 06/14/2016 Patient Education: Patient Medication [...] ICD-10 : J20.9 06/13/2016 Appointment: Sammi Najera [address] [place], [place] [phone] ACUTE ILLNESS 06/13/2016 Patient Education: Patient Medication Summary Completed 06/13/2016 Care Plan: CHEST X-RAY 2VW FRONTAL&LATL LOINC : 11232-2 Pending 06/13/2016 Visit Plan: Increase metoprolol to 100mg po BID BP readings and BP check in 1month 05/14/2016 Appointment: Neela Hyman WPtel: [address] [place] [address] 05/13 rang and rang`sl FOLLOW UP 6 Patient Education: Patient Medication Summary Completed 05/14/2016 Visit Plan: Increase metoprolol to 50mg BID BP check in 1 week f/u BP appt 2 weeks consider musculoskeletal if pain returns 04/29/2016 Appointment: Neela Hyman WPtel: [address] [place], [place] [phone] 04/25 confimred~sl FOLLOW UP 04/29/2016 Patient Education: Patient Medication Summary Completed 04/29/2016 Visit Plan: Stat CT scan of abdomen/pelv is to look for stone Hydrate and use tramadol prn Increase metoprolol to 25mg po BID Will see urology pending CT scan results 04/22/2016 Appointment: Neela Hyman WPtel: [address] [place] [address] 04/17 confirmed-sp ACUTE ILLNESS 04/22/2016 Patient Education: [...] flu shot 04/01/2016 Appointment: Neela Hyman WPtel: [address] [place], [place] [phone] [place] FOLLOW UP 04/01/2016 Patient Education: Patient Medication Summary Completed 04/01/2016 Patient Education: [facility] - Saving AutoInj - 18-64 - Dynamic Heber l ID Completed 04/01/2016 Patient Education: Patient Medication Summary Completed 03/28/2016 Care Plan: A1C HPLC LOINC : 95551-8 Pending 03/28/2016 Care Plan: [place] : 416[address]-0 Pending 03/28/2016 Visit Plan: Lab discussed Continue curre nt meds Accuchecks daily 11/30/2015 Appointment: Neela Hyman WPtel: [address] [place] [address] 11/28 confirmed~sl FOLLOW UP 11/30/2015 Patient Education: Patient Medication Summary Completed 11/30/2015 Appointment: Neela Hyman WPtel: [address] [place], [place] [phone] [place] RESCHEDULED 11/28/2015 Patient Education: Patient Medication Summary Completed 11/23/2015 Care Plan: [place] : 69[address]-6 Pending 11/23/2015 Care Plan: LIPID PANEL LOINC : 79544-3 Pending 11/23/2015 Care Plan: CBC Pending 11/23/2015 Care Plan: A1C HPLC LOINC : 52232-7 Pending 11/23/2015 Visit Plan: Lab discussed Surinder munguia Continue current meds Cymbalta helping with feet and mood 08/29/2015 Appointment: Neela Hyman WPtel: [phone] [facility] [place] FOLLOW UP 08/29/2015 Patient Education: Patient Medication Summary Completed 08/29/2015 Visit Plan: Check CXR Stop all steroids and steroid inhalers Use SVN with but change to duoneb Add singulair for allergy etiology Change fluoxetine to cymbalta 60mg daily Viagra samples given to try prn--warned of no nitrates 08/14/2015 Appointment: Neela Hyman WPtel: [phone] [facility] lm to reschedule ~sl 07/27 lm ~sl 08/09 busy 08/10 fer rosales-riley Annual Well Visit 08/14/2015 Patient Education: Patient Medication Summary Completed 08/14/2015 Care Plan: CHEST X-RAY 2VW FRONTAL&LATL LOINC : 26407-2 Ordered 08/14/2015 Visit Plan: Decadron 8mg given [...] improving as expected 08/09/2015 Appointment: [facility]i [facility]era [facility] [facility] [facility] Follow UP 08/09/2015 Patient Education: Patient Medication Summary Completed 08/09/2015 Patient Education: [facility] - Saving AutoInj - 18-64 - Dynamic [...] with it 05/22/2015 Appointment: Neela Hyman WPtel: [address] [place], [place] [phone] 05/17 confirmed~sl FOLLOW UP 05/22/2015 Patient Education: Patient Medication Summary Completed 05/22/2015 Patient Education: Patient Medication Summary Completed 05/15/2015 Visit Plan: Obtain EMGs done at [place] from when fractured left arm Lab discussed Accuchecks daily 02/13/2015 Appointment: Neela Hyman WPtel: [address] [place], [place] [phone] 02/10 confrimed FOLLOW UP 02/13/2015 Patient Education: Patient Medication Summary Completed 02/13/2015 Patient Education: Patient Medication Summary Completed 02/09/2015 Visit Plan: discussed lab add fenofibrat e 134mg po daily recheck fasting lab in 3 months, CBC, CMP, Lipids, hgb AIC 11/07/2014 Appointment: Neela Hyman WPtel: [address] [place], [place] [id number] 11/04 appt confirmed cn FOLLOW UP 015 Patient Education: Patient Medication Summary Completed 11/07/2014 Patient Education: Patient Medication Summary Completed 11/03/2014 Visit Plan: Continue loratadine 10mg richard ly Notify if symptoms return 10/04/2014 Appointment: Neela Hyman WPtel: [address] [place], [place] [phone] confirmed on 10/03 at 2:42pm FOLLOW UP 09/23 Patient Education: Patient Medication Summary Completed 10/04/2014 Appointment: Neela Hyman WPtel: [address] ACUTE ILLNESS 09/28/2014 Appointment: RodrigoVirajLoren WPtel: [address] [place] [address] FOLLOW UP 09/22/2014 Patient Education: Patient Medication Summary Completed 09/22/2014 Appointment: Loren Garza Delma WPtel: [address] [place] [address] ACUTE ILLNESS 09/21/2014 Patient Education: Patient Medication Summary Completed 09/21/2014 Patient Education: [facility] - Saving AutoInj - 18+ - Dynamic Portal ID Completed 09/21/2014 Visit Plan: Lab discussed Continue daily accuchecks Continue current meds 06/28/2014 Appointment: Neela Hyman WPtel: [address] [place] [address] FOLLOW UP 06/28/2014 Patient Education: Patient Medication Summary Completed 06/28/2014 Patient Education: Patient Medication Summary Completed 06/23/2014 Appointment: Sarah Sunshine WPtel: [address] [place] [address] ACUTE ILLNESS 06/10/2014 Patient Education: Patient Medication Summary Completed 06/10/2014 Patient Education: [facility] - Saving AutoInj - 18+ - Dynamic Portal ID Completed 06/10/2014 Visit Plan: Lab discussed Continue daily accuchecks Continue current meds 03/29/2014 Appointment: Neela Hyman WPtel: [address] [place], [place] [phone] FOLLOW UP 03/29/2014 Patient Education: Patient Medication Summary Completed 03/29/2014 Patient Education: Patient Medication Summary Completed 03/23/2014 Visit Plan: Lab discussed Continue curre nt meds and accuchecks See surgery for removal of hand lesion 11/30/2013 Appointment: Neela Hyman WPtel: [address] [place], [place] [phone] 11/29 no answer FOLLOW UP 11/30/2013 Patient Education: Patient Medication Summary Completed 11/30/2013 Visit Plan: Lab discussed Continue curre nt meds 08/03/2013 Appointment: Neela Hyman WPtel: [address] [place] [address] FOLLOW UP 08/03/2013 Patient Education: Patient Medication Summary Completed 08/03/2013 Visit Plan: Lab Discussed Will continue current meds and pt will get back on diet/exercise Check lab in 4mos and fwup 04/06/2013 Appointment: Neela Hyman WPtel: [address] [place] [address] FOLLOW UP 04/06/2013 Patient Education: Patient Medication Summary Completed 04/06/2013 Visit Plan: Lab discussed Continue daily accuchecks 12/01/2012 Appointment: Neela Hyman WPtel: [address] [place] [address] 11/30 no answer FOLLOW UP 12/01/2012 Patient Education: Patient Medication Summary Completed 12/01/2012 Visit Plan: Continue current meds and da russell accuchecks Lab discussed 08/04/2012 Appointment: Neela Hyman WPtel: [address] [place] [address] FOLLOW UP 08/04/2012 Patient Education: Patient Medication Summary Completed 08/04/2012 Appointment: Neela Hyman WPtel: [address] [place], [place] [phone] [facility] 06/01/2012 Patient Education: Patient Medication Summary Completed 06/01/2012 Appointment: Janet Jean Baptiste WPtel: [address] [place], [place] [phone] FOLLOW UP 05/29/2012 Patient Education: Patient Medication Summary Completed 05/29/2012 Visit Plan: pt states Dr. Hyman told h is to increase his Prozac dose while she was talking to her at [facility]. Discussed that pt. should not increase or decrease dosage without Dr's knowledge. Pt. will seek hearing test here in town at the hearing aid place on [address]. Discussed that ear pain is likely caused by sinus pressure. Pt. will notify if no improvement. 05/25/2012 Appointment: Janet Jean Baptiste WPtel: [address] [place], [place] [phone] [place] ACUTE ILLNESS 05/25/2012 Patient Education: Patient Medication Summary Completed 05/25/2012 Visit Plan: Continue current meds Contin ue daily accuchecks but alternate times Increase fish oil to 3gm daily 04/07/2012 Appointment: Neela Hyman WPtel: [address] [place] [address] 04/06 FOLLOW UP 04/07/2012 Patient Education: Patient Medication Summary Completed 04/07/2012 Appointment: Janet Jean Baptiste WPtel: [address] [place] [address] ACUTE ILLNESS 12/16/2011 Patient Education: Patient Medication Summary Completed 12/16/2011 Visit Plan: Increase 12/03/2011 Appointment: Neela Hyman WPtel: [address] [place] [address] FOLLOW UP 12/03/2011 Patient Education: Patient Medication Summary Completed 12/03/2011 Visit Plan: Continue current meds Contin ue accuchecks 08/29/2011 Appointment: Neela Hyman WPtel: [address] [place], [place] [phone] [place] FOLLOW UP 08/29/2011 Patient Education: Patient Medication Summary Completed 08/29/2011 Visit Plan: Continue current meds except restart zocor 05/30/2011 Appointment: Neela Hyman WPtel: [address] [place], [place] [phone] [place] FOLLOW UP 05/30/2011 Patient Education: Patient Medication Summary Completed 05/30/2011 Visit Plan: Continue tennis elbow strap May go back to weight-lifing--light weigts every other day 01/29/2011 Appointment: Neela Hyman WPtel: [address] [place], [place] [phone] [place] FOLLOW UP 01/29/2011 Patient Education: Patient Medication Summary Completed 01/29/2011 Visit Plan: Continue tennis elbow strap and anti-inflammatories 01/14/2011 Appointment: Neela Hyman WPtel: [address] [place], [place] [phone] FOLLOW UP 01/14/2011 Appointment: Janet Jean Baptiste WPtel: [address] [place] [address] NEW PATIENT 01/14/2011 Patient Education: Patient Medication Summary Completed 01/14/2011 Appointment: Neela Hyman WPtel: [address] [place] [address] FOLLOW UP 01/08/2011 Appointment: Neela Hyman WPtel: [address] [place] [address] FOLLOW UP 01/01/2011 Appointment: Neela Hyman WPtel: [address] [place], [place] [phone] UA 01/01/2011 Patient Education: Patient Medication [...] given. 11/29/2010 Appointment: Janet Jean Baptiste WPtel: [address] [place], [place] [phone] ACUTE ILLNESS 11/29/2010 Patient Education: Patient Medication Summary Completed 11/29/2010 Visit Plan: Cont current meds Check CMP, Lipids, HbA1C 08/28/2010 Appointment: Neela Hyman WPtel: [address] [place], [place] [phone] FOLLOW UP 08/28/2010 Patient Education: Patient Medication Summary Completed 08/28/2010 Visit Plan: Cont current meds and accuch ecks Add Zocor 40mg q HS Check Lipids and HbA1C in 3mos 06/05/2010 Appointment: Neela Hyman WPtel: [address] [place], [place] [phone] [place] FOLLOW UP 06/05/2010 Patient Education: Patient Medication Summary Completed 06/05/2010 Visit Plan: Check Lipids and HbA1C 02/05/2010 Appointment: Neela Hyman WPtel: [address] [place], [place] [phone] [place] FOLLOW UP 02/05/2010 Patient Education: Patient Medication Summary Completed 02/05/2010 Visit Plan: HbA1C in 3mos. Continue Accu checks BID alternating times. Check HbA1C, CMP, Lipids 10/09/2009 Appointment: Neela Hyman WPtel: [address] [place], [place] [phone] [place] FOLLOW UP 10/09/2009 Patient Education: Patient Medication Summary Completed 10/09/2009 Visit Plan: Saline nasal flushes prn. Ty lenol/Motrin prn headache. Notify if persists/symptoms worsening. 08/22/2009 Appointment: Neela Hyman WPtel: [address] [place], [place] [phone] ACUTE ILLNESS 08/22/2009 Patient Education: Patient Medication Summary Completed 08/22/2009 Referral: Aubrey Rand WPtel: [address] [place], [place] [id number] [place] Office will verfy his insurance then they will contact patient Completed Referral: Shahbaz Brennan WPtel: [address] [facility] [address] [id number] [place] Referral Completed Referral: Ion Levi [address] [place] [address] C&D [id number] [place] Referral Appointment Requested Referral: Ion Levi [address] [place] [address] C&D [id number] [place] Referral Appointment Requested Instructions Comment . [...] with it . Obtain EMGs done at [place] from when fractured left arm Lab discussed [...] while she was talking to her at [facility]. Discussed that pt. should not increase or decrease dosage without Dr's knowledge. Pt. will seek hearing test here in town at the hearing aid place on [address]. Discussed that ear pain is likely caused [...]
--- OUTSIDE RECORDS SUMMARY | 2019-12-09 08:55 | XMS REPORT | CCD ---
Author Author Michael Hyman D.O. 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 Name Role Phone Neela Hyman D.O., PP Unavailable CCM Unavailable Summary Purpose Interface Exchange Insurance Providers Payer name Policy type / Coverage type Covered libertarian ID Effective Begin Date Effective End Date ABS FOR [employer] Commercial Insurance [id number] Unknown Family History Family History data not found Social History Social History Element Codes Description Effective Dates Marital status Unknown 05/30/[address]: 4983420 Former smoker quit 25 years ago 01/01/2011 [...] chloride ER 20 mEq tablet,extended release RxNorm: 967634 TAKE ONE TABLET BY MOUTH TWO TIMES A DAY 11/01/2019 01/29/2020 Active Zocor 40 mg tablet RxNorm: 818287 TAKE ONE TABLET BY M OUTH EVERY NIGHT AT BEDTIME 10/20/2019 04/16/2020 Active MagOx 400 mg (241.3 mg magnesium) tablet RxNorm: 847181 TAKE ONE TABLET BY MOUTH EVERY DAY 10/20/2019 04/16/2020 Active fenofibrate micronized 134 mg capsule RxNorm: 475697 1 Capsule( s) Oral QD 09/22/2019 03/20/2020 Active metformin 500 mg tablet RxNorm: 878435 2 Tablet(s) Oral two afshan es a day 09/22/2019 12/20/2019 Active Benicar 40 mg tablet RxNorm: 755720 1 Tablet(s) Oral QD 09/22/2019 Active Singulair 10 mg tablet RxNorm: 276980 TAKE ONE TABLET BY MOUTH EVERY EVENING 09/22/2019 03/20/2020 Active Reselected prescribe r from [facility] to [facility] Lasix 40 mg tablet RxNorm: 164868 1 Tablet(s) Oral QD 08/24/201910/25 Inactive duloxetine 60 mg capsule,delayed release RxNorm: 113085 TAKE ONE CAPSULE BY MOUTH EVERY DAY 08/16/2019 02/11/2020 Active metoprolol succinate ER 100 mg tablet,extended release 24 hr RxNorm: 488025 TAKE ONE TABLET BY MOUTH TWICE A DAY 08/16/2019 05/11/2020 Active potassium chloride ER 20 mEq tablet,extended release RxNorm: 671035 1 Tablet(s) Oral two times a day 07/22/2019 10/19/2019 Inactive metformin 500 mg tablet RxNorm: 720087 2 Tablet(s) Oral two afshan es a day 07/13/2019 09/21/2019 Inactive Keflex 500 mg capsule RxNorm: 046740 1 Capsule(s) Oral three ti mes a day 07/06/2019 07/13/2019 Inactive Singulair 10 mg tablet RxNorm: 654547 TAKE ONE TABLET BY MOUTH EVERY EVENING 07/06/2019 09/21/2019 Inactive Reselected prescribe r from [facility] to [facility] Singulair 10 mg tablet RxNorm: 975362 TAKE ONE TABLET BY MOUTH EVERY EVENING 06/22/2019 07/05/2019 Inactive Reselected prescribe r from [facility] to [facility] Zocor 40 mg tablet RxNorm: 047985 TAKE ONE TABLET BY M OUTH EVERY NIGHT AT BEDTIME 06/21/2019 10/19/2019 Inactive MagOx 400 mg (241.3 mg magnesium) tablet RxNorm: 694309 1 Table t(s) Oral QD 06/21/2019 08/20/2019 Inactive diltiazem ER 360 mg capsule,24 hr,extended release RxNorm: 8 49843 TAKE ONE CAPSULE BY MOUTH AT BEDTIME -REPLACES 300MG 05/17/2019 11/12/2019 Inactive MagOx 400 mg (241.3 mg magnesium) tablet RxNorm: 402255 1 Table t(s) Oral QD 04/26/2019 06/20/2019 Inactive Lasix 40 mg tablet RxNorm: 508763 40 MG PO DAILY 04/12/2019 08/23/2019 Inactive Benicar 40 mg tablet RxNorm: 298280 1 Tablet(s) Oral QD 03/29/2019 Inactive potassium chloride ER 20 mEq tablet,extended release RxNorm: 425216 1 Tablet(s) Oral two times a day 03/29/2019 06/27/2019 Inactive potassium chloride ER 20 mEq tablet,extended release RxNorm: 127460 1 Tablet(s) Oral QD 03/29/2019 03/28/2019 Inactive Benicar 40 mg tablet RxNorm: 081761 1 Tablet(s) Oral QD 03/29/2019 Inactive MagOx 400 mg (241.3 mg magnesium) tablet RxNorm: 780459 1 Table t(s) Oral QD 03/29/2019 04/25/2019 Inactive metformin 500 mg tablet RxNorm: 759146 2 Tablet(s) Oral two afshan es a day 03/29/2019 07/12/2019 Inactive fenofibrate micronized 134 mg capsule RxNorm: 997652 TA KE ONE CAPSULE BY MOUTH EVERY DAY 03/05/2019 09/21/2019 Inactive duloxetine 60 mg capsule,delayed release RxNorm: 454551 1 Capsu le(s) PO QD 01/28/2019 07/26/2019 Inactive Trelegy Ellipta 100 mcg-62.5 mcg-25 mcg powder for inhalatio n RxNorm: 7388312 1 Puff(s) INH QD 01/06/2019 12/31/2019 Active 90 day supply prednisone 20 mg tablet RxNorm: 742477 1 Tablet(s) PO T ID for 3 days then 1 po BID for 3 days then 1 po daily for 3 days 01/05/2019 03/28/2019 Inacti ve metformin ER 1,000 mg tablet,extended release 24hr RxNorm: 1 757126 TAKE TWO TABLETS (1000MG) BY MOUTH TWO TIMES A DAY 12/22/2018 07/13/2019 Inacti ve Diflucan 100 mg tablet RxNorm: 892063 1 Tablet(s) PO QD 12/09/2018 Inactive prednisone 20 mg tablet RxNorm: 462068 1 Tablet(s) PO B ID for 4 days then 1 po daily for 4 days 11/24/2018 01/04/2019 Inactive albuterol sulfate 2.5 mg/3 mL (0.083 %) solution for n ebulization RxNorm: 136796 3 Milliliter(s) INH ONE VIAL VIA NEBULIZER EVERY 4 HOURS 019 07/21/2019 Inactive [AttnRPh: Saving apply/adjudicate RxGRP: SG20 RxBIN:[id number] RxPCN: ID#:[id number]] Trelegy Ellipta 100 mcg-62.5 mcg-25 mcg powder for inhalatio n RxNorm: 9314020 1 Puff(s) INH QD 10/27/2018 01/06/2019 Inactive 90 day supply diltiazem ER 360 mg capsule,24 hr,extended release RxNorm: 8 35406 TAKE ONE CAPSULE BY MOUTH AT BEDTIME -REPLACES 300MG 10/13/2018 04/10/2019 Inactive metoprolol succinate ER 100 mg tablet,extended release 24 hr RxNorm: 180747 TAKE ONE TABLET BY MOUTH TWICE A DAY 10/13/2018 07/09/2019 Inactive Trelegy Ellipta 100 mcg-62.5 mcg-25 mcg powder for inhalatio n RxNorm: 6923915 INHALE ONE PUFF ONCE DAILY 09/07/2018 10/27/2018 Inactive Levaquin 750 mg tablet RxNorm: 234635 1 Tablet(s) PO QD 09/07/2018 Inactive Levaquin 750 mg tablet RxNorm: 154775 1 Tablet(s) PO QD 09/07/2018 Inactive prednisone 20 mg tablet RxNorm: 108893 2 Tablet(s) PO QAM 08/13/2018 08/19/2018 Inactive Levaquin 500 mg tablet RxNorm: 168342 1 Tablet(s) PO QD 08/11/2018 Inactive fenofibrate micronized 134 mg capsule RxNorm: 365808 TA KE ONE CAPSULE BY MOUTH EVERY DAY 08/10/2018 02/05/2019 Inactive prednisone 20 mg tablet RxNorm: 731656 1 Tablet(s) PO BID 07/16/2018 07/20/2018 Inactive doxycycline hyclate 100 mg capsule RxNorm: 6071352 1 Capsule(s) PO BID 07/13/2018 07/22/2018 Inactive duloxetine 60 mg capsule,delayed release RxNorm: 929673 TAKE ONE CAPSULE BY MOUTH ONCE A DAY 07/08/2018 01/28/2019 Inactive Lasix 40 mg tablet RxNorm: 106709 1 TABLET(S) PO QAM 06/08/201809/05 Inactive potassium chloride ER 20 mEq tablet,extended release(p art/cryst) RxNorm: 3240474 1 TABLET(S) PO QD 06/08/2018 09/05/2018 Inactive metformin ER 1,000 mg tablet,extended release 24hr RxNorm: 1 735173 TAKE TWO TABLETS (1000MG) BY MOUTH TWO TIMES A DAY 06/01/2018 11/27/2018 Inacti ve Benicar HCT 40 mg-25 mg tablet RxNorm: 230493 TAKE ONE TABLET BY MOUTH ONCE DAILY 05/11/2018 03/28/2019 Inactive Zocor 40 mg tablet RxNorm: 867430 TAKE ONE TABLET BY M OUTH EVERY NIGHT AT BEDTIME 05/11/2018 06/20/2019 Inactive Trelegy Ellipta 100 mcg-62.5 mcg-25 mcg powder for inhalatio n RxNorm: 5897031 1 PUFF(S) INH QD 04/06/2018 07/04/2018 Inactive diltiazem ER 360 mg capsule,24 hr,extended release RxNorm: 8 84613 1 Capsule(s) PO QHS replaces 300mg dose 03/30/2018 09/25/2018 Inactive Trelegy Ellipta 100 mcg-62.5 mcg-25 mcg powder for inhalatio n RxNorm: 5112210 1 Puff(s) INH QD 02/24/2018 02/23/2018 Inactive Trelegy Ellipta 100 mcg-62.5 mcg-25 mcg powder for inhalatio n RxNorm: 4189824 1 Puff(s) INH QD 02/24/2018 02/23/2018 Inactive Trelegy Ellipta 100 mcg-62.5 mcg-25 mcg powder for inhalatio n RxNorm: 3958747 1 Puff(s) INH QD 02/24/2018 04/05/2018 Inactive Lasix 40 mg tablet RxNorm: 827456 1 Tablet(s) PO QAM 02/10/201803/11 Inactive potassium chloride ER 20 mEq tablet,extended release(p art/cryst) RxNorm: 4661924 1 Tablet(s) PO QD 02/10/2018 03/11/2018 Inactive fenofibrate micronized 134 mg capsule RxNorm: 660128 1 Capsule( s) PO QD 01/30/2018 07/28/2018 Inactive metoprolol succinate ER 100 mg tablet,extended release 24 hr RxNorm: 328183 TAKE ONE TABLET BY MOUTH TWICE A DAY 12/30/2017 09/25/2018 Inactive metformin ER 1,000 mg tablet,extended release 24hr RxNorm: 1 103426 1 Tablet(s) PO BID 11/17/2017 05/15/2018 Inactive [SAVINGS FOR NON -COVERED DRUGS -- BIN:745570, PCN: ASPROD1, Group: XXXXX, ID# [id number], Questions: . THIS IS NOT INSURANCE.] Benicar HCT 40 mg-25 mg tablet RxNorm: 676888 1 Tablet(s) PO QD 05/10/2018 Inactive [SAVINGS FOR NON-COVERED JESU GS -- BIN:952590, PCN: ASPROD1, Group: XXXXX, ID# [id number], Questions: . THIS IS NOT INSURANCE.] Bactroban 2 % topical cream RxNorm: 104876 Application TOP BID 10/2409/02/2018 Inactive clindamycin HCl 300 mg capsule RxNorm: 583062 2 Capsule(s) PO TID 0 11/05/2017 11/18/2017 Inactive duloxetine 60 mg capsule,delayed release RxNorm: 255269 Capsule(s) TAKE ONE CAPSULE BY MOUTH ONCE DAILY 09/24/2017 09/23/2017 Inactive triamcinolone acetonide 0.1 % topical ointment RxNorm: 1483214 1 TOP BID 09/09/2017 11/04/2017 Inactive Bactrim DS 800 mg-160 mg tablet RxNorm: 528342 1 Tablet(s) PO BID 0 08/07/2017 08/13/2017 Inactive metronidazole 500 mg tablet RxNorm: 931595 1 Tablet(s) PO BID 08/0708/13/2017 Inactive diltiazem ER 360 mg capsule,24 hr,extended release RxNorm: 8 49425 1 Capsule(s) PO QHS replaces 300mg dose 08/04/2017 01/30/2018 Inactive fenofibrate micronized 134 mg capsule RxNorm: 111245 1 Capsule( s) PO QD 07/21/2017 01/30/2018 Inactive Zocor 40 mg tablet RxNorm: 497201 1 Tablet(s) PO QHS 07/21/201705/10 Inactive GB duloxetine 60 mg capsule,delayed release RxNorm: 626493 Capsule(s) TAKE ONE CAPSULE BY MOUTH ONCE DAILY 06/24/2017 09/24/2017 Inactive Cleocin HCl 300 mg capsule RxNorm: 575178 2 Capsule(s) PO BID 06/0206/08/2017 Inactive acyclovir 800 mg tablet RxNorm: 280751 1 Tablet(s) PO 5x day 201706/08/2017 Inactive diltiazem ER 300 mg capsule,24 hr,extended release RxNorm: 8 71392 1 Capsule(s) PO QHS replaces 240mg dose 05/05/2017 08/03/2017 Inactive ipratropium-albuterol 0.5 mg-3 mg(2.5 mg base)/3 mL ne bulization soln RxNorm: 1622741 1 Unit Dose INH Q4H as needed 05/05/2017 01/04/2019 Inactive metformin ER 1,000 mg tablet,extended release 24hr RxNorm: 1 475402 1 Tablet(s) PO BID 04/28/2017 11/17/2017 Inactive [SAVINGS FOR NON -COVERED DRUGS -- BIN:911080, PCN: ASPROD1, Group: XXXXX, ID# [id number], Questions: . THIS IS NOT INSURANCE.] diltiazem ER (XR/XT) 240 mg capsule,extended release 2 4 hr, controlled RxNorm: 332659 TAKE ONE CAPSULE BY MOUTH EVERY DAY 04/15/2017 05/04/2017 Inact avani prednisone 20 mg tablet RxNorm: 146555 1 Tablet(s) PO QD 04/10/2017 1 06/14/2016 Inactive Breo Ellipta 200 mcg-25 mcg/dose powder for inhalation RxNor m: 8399300 1 Puff(s) INH QD 04/10/2017 02/09/2018 Inactive Breo Ellipta 200 mcg-25 mcg/dose powder for inhalation RxNor m: 5909471 1 Puff(s) INH QD 04/10/2017 04/09/2017 Inactive Levaquin 500 mg tablet RxNorm: 969552 1 Tablet(s) PO QD 04/10/2017 Inactive metoprolol succinate ER 100 mg tablet,extended release 24 hr RxNorm: 807920 TAKE ONE TABLET BY MOUTH TWICE A DAY 03/24/2017 12/18/2017 Inactive fenofibrate micronized 134 mg capsule RxNorm: 698786 1 Capsule( s) PO QD 01/16/2017 07/21/2017 Inactive Benicar HCT 40 mg-25 mg tablet RxNorm: 363636 1 Tablet(s) PO QD 11/17/2017 Inactive [SAVINGS FOR NON-COVERED JESU GS -- BIN:363000, PCN: ASPROD1, Group: XXXXX, ID# [id number], Questions: . THIS IS NOT INSURANCE.] metoprolol succinate ER 100 mg tablet,extended release 24 hr RxNorm: 345601 1 Tablet(s) PO BID 10/16/2016 03/23/2017 Inactive diltiazem ER (XR/XT) 240 mg capsule,extended release 2 4 hr, controlled RxNorm: 065921 1 Capsule(s) PO QD 10/16/2016 04/13/2017 Inactive [SAVINGS FOR NON- COVERED DRUGS -- BIN:424502, PCN: ASPROD1, Group: XXXXX, ID# [id number], Questions: . THIS IS NOT INSURANCE.] metformin ER 1,000 mg tablet,extended release 24hr RxNorm: 8 09902 1 Tablet(s) PO BID 10/16/2016 04/28/2017 Inactive [SAVINGS FOR NON -COVERED DRUGS -- BIN:654188, PCN: ASPROD1, Group: XXXXX, ID# [id number], Questions: . THIS IS NOT INSURANCE.] Zocor 40 mg tablet RxNorm: 439890 1 Tablet(s) PO QHS 10/16/201607/21 Inactive GB Singulair 10 mg tablet RxNorm: 638375 Tablet(s) 1 TABLET(S) PO QHS 08/27/2016 09/02/2018 Inactive prednisone 20 mg tablet RxNorm: 841480 1 Tablet(s) PO QD 08/27/2016 0 08/31/2016 Inactive ipratropium-albuterol 0.5 mg-3 mg(2.5 mg base)/3 mL ne bulization soln RxNorm: 7064836 1 Unit Dose INH Q4H as needed 08/27/2016 05/04/2017 Inactive metoprolol succinate ER 100 mg tablet,extended release 24 hr RxNorm: 948550 TAKE ONE TABLET BY MOUTH TWICE A DAY 08/05/2016 10/16/2016 Inactive duloxetine 60 mg capsule,delayed release RxNorm: 567641 TAKE ONE CAPSULE BY MOUTH ONCE DAILY 08/05/2016 06/24/2017 Inactive prednisone 20 mg tablet RxNorm: 061109 1 Tablet(s) PO QD 06/14/2016 0 06/18/2016 Inactive ipratropium-albuterol 0.5 mg-3 mg(2.5 mg base)/3 mL ne bulization soln RxNorm: 8487789 1 Unit Dose INH Q4H as needed 06/13/2016 08/26/2016 Inactive Levaquin 500 mg tablet RxNorm: 794481 1 Tablet(s) PO QD 06/13/2016 Inactive metoprolol succinate ER 100 mg tablet,extended release 24 hr RxNorm: 541277 1 Tablet(s) PO BID replaces 50mg dose 05/14/2016 07/12/2016 Inactive metoprolol succinate ER 50 mg tablet,extended release 24 hr RxNorm: 519770 1 Tablet(s) PO BID 04/29/2016 05/13/2016 Inactive prednisone 20 mg tablet RxNorm: 692631 1 Tablet(s) PO BID 04/22/2016 04/21/2016 Inactive prednisone 20 mg tablet RxNorm: 332333 1 Tablet(s) PO BID 04/22/2016 04/28/2016 Inactive Singulair 10 mg tablet RxNorm: 931357 Tablet(s) 1 TABLET(S) PO QHS 04/01/2016 08/26/2016 Inactive metoprolol succinate ER 25 mg tablet,extended release 24 hr RxNorm: 302655 1 Tablet(s) PO QHS for blood pressure 04/01/2016 05/13/2016 Inactive fenofibrate micronized 134 mg capsule RxNorm: 655897 TA KE ONE CAPSULE BY MOUTH DAILY 01/25/2016 01/16/2017 Inactive duloxetine 60 mg capsule,delayed release RxNorm: 021107 TAKE ONE CAPSULE BY MOUTH ONCE DAILY 01/25/2016 08/04/2016 Inactive Zocor 40 mg tablet RxNorm: 103663 TAKE ONE TABLET BY MOUTH AT B EDTIME 11/13/2015 10/16/2016 Inactive GB metformin ER 1,000 mg tablet,extended release 24hr RxNorm: 8 75690 1 Tablet(s) PO BID 10/26/2015 10/16/2016 Inactive [SAVINGS FOR NON -COVERED DRUGS -- BIN:487153, PCN: ASPROD1, Group: XXXXX, ID# [id number], Questions: . THIS IS NOT INSURANCE.] Benicar HCT 40 mg-25 mg tablet RxNorm: 969355 1 Tablet(s) PO QD 06/201511/11/2016 Inactive [SAVINGS FOR NON-COVERED JESU GS -- BIN:911505, PCN: ASPROD1, Group: XXXXX, ID# XXXXXXX, Questions: . THIS IS NOT INSURANCE.] diltiazem ER (XR/XT) 240 mg capsule,extended release,control led RxNorm: 402709 1 Capsule(s) PO QD 10/26/2015 10/15/2016 Inactive [SAVINGS FOR NO N-COVERED DRUGS -- BIN:124623, PCN: ASPROD1, Group: XXXXX, ID# [id number], Questions: . THIS IS NOT INSURANCE.] Singulair 10 mg tablet RxNorm: 259027 1 TABLET(S) PO QHS 09/18/2015 1 05/31/2015 Inactive Viagra 100 mg tablet RxNorm: 796327 1 Tablet(s) PO as needed 201511/23/2018 Inactive Singulair 10 mg tablet RxNorm: 986066 1 Tablet(s) PO QHS 08/16/2015 0 08/15/2015 Inactive Singulair 10 mg tablet RxNorm: 783981 1 Tablet(s) PO QHS 08/16/2015 0 09/14/2015 Inactive duloxetine 60 mg capsule,delayed release RxNorm: 588427 1 Capsule(s) PO QD replaces fluoxetine 08/14/2015 01/24/2016 Inactive ipratropium-albuterol 0.5 mg-3 mg(2.5 mg base)/3 mL ne bulization soln RxNorm: 9747694 1 Unit Dose INH Q4H as needed 08/14/2015 06/12/2016 Inactive prednisone 20 mg tablet RxNorm: 318343 Take 3 tabs PO o nce daily x 3 days, then 2 tabs PO once daily x 3 days and then 1 tab PO once daily x 3 days 08/09/2015 08/13/2015 Inactive Symbicort 160 mcg-4.5 mcg/actuation HFA aerosol inhaler RxNo rm: 5624150 2 Puff(s) INH BID 08/09/2015 08/13/2015 Inactive Zocor 40 mg tablet RxNorm: 022260 1 Tablet(s) PO QHS 05/23/201511/11 Inactive [AttnRPh: Saving apply/adjudicate RxGRP: SG20 RxBIN:[id number] RxPCN: ID#:[id number]] Benicar HCT 40 mg-25 mg tablet RxNorm: 035534 1 Tablet(s) PO QD 10/26/2015 Inactive [SAVINGS FOR NON-COVERED JESU GS -- BIN:923647, PCN: ASPROD1, Group: XXXXX, ID# XXXXXXX, Questions: . THIS IS NOT INSURANCE.] diltiazem ER (XR/XT) 240 mg capsule,extended release,control led RxNorm: 871340 1 Capsule(s) PO QD 04/24/2015 10/20/2015 Inactive [SAVINGS FOR NO N-COVERED DRUGS -- BIN:525679, PCN: ASPROD1, Group: XXXXX, ID# XXXXXXX, Questions: . THIS IS NOT INSURANCE.] fluoxetine 40 mg capsule RxNorm: 592956 1 Capsule(s) PO QD 04/24/20 15 08/13/2015 Inactive [SAVINGS FOR NON-COVERED JESU GS -- BIN:990940, PCN: ASPROD1, Group: XXXXX, ID# XXXXXXX, Questions: . THIS IS NOT INSURANCE.] Zocor 40 mg tablet RxNorm: 599176 TABLET(S) 1 TABLET(S) PO QHS 01/2505/23/2015 Inactive [AttnRPh: Saving apply/adjud icate RxGRP:SG20 RxBIN:[id number] RxPCN:HT ID#:[id number]] metformin ER 1,000 mg tablet,extended release 24hr RxNorm: 8 74202 1 TABLET(S) PO BID 01/29/2015 10/26/2015 Inactive [SAVINGS FOR NON -COVERED DRUGS -- BIN:379014, PCN: ASPROD1, Group: XXXXX, ID# XXXXXXX, Questions: . THIS IS NOT INSURANCE.] fenofibrate micronized 134 mg capsule RxNorm: 194704 1 CAPSULE( S) PO QD 01/23/2015 01/17/2016 Inactive fenofibrate micronized 134 mg capsule RxNorm: 586809 1 Capsule( s) PO QD 11/07/2014 01/22/2015 Inactive diltiazem ER (XR/XT) 240 mg capsule,extended release,control led RxNorm: 546665 1 Capsule(s) PO QD 10/24/2014 04/24/2015 Inactive [SAVINGS FOR NO N-COVERED DRUGS -- BIN:459623, PCN: ASPROD1, Group: XXXXX, ID# XXXXXXX, Questions: . THIS IS NOT INSURANCE.] Benicar HCT 40 mg-25 mg tablet RxNorm: 607749 1 Tablet(s) PO QD 05/201404/24/2015 Inactive [SAVINGS FOR NON-COVERED JESU GS -- BIN:243350, PCN: ASPROD1, Group: XXXXX, ID# XXXXXXX, Questions: . THIS IS NOT INSURANCE.] fluoxetine 40 mg capsule RxNorm: 079794 1 Capsule(s) PO QD 10/25/19 15 04/24/2015 Inactive [SAVINGS FOR NON-COVERED JESU GS -- BIN:987835, PCN: ASPROD1, Group: XXXXX, ID# XXXXXXX, Questions: . THIS IS NOT INSURANCE.] azithromycin 500 mg tablet RxNorm: 282695 1 Tablet(s) PO QD 015 09/27/2014 Inactive [SAVINGS FOR NON-COVERED JESU GS -- BIN:239823, PCN: ASPROD1, Group: XXXXX, ID# XXXXXXX, Questions: . THIS IS NOT INSURANCE.] albuterol sulfate 2.5 mg/3 mL (0.083 %) solution for n ebulization RxNorm: 790893 3 Milliliter(s) INH ONE VIAL VIA NEBULIZER EVERY 4 HOURS 015 11/19/2014 Inactive [AttnRPh: Saving apply/adjudicate RxGRP: SG20 RxBIN:[id number] RxPCN: ID#:[id number]] Zocor 40 mg tablet RxNorm: 606031 TABLET(S) 1 TABLET(S ) PO QHS 1 TABLET(S) PO QHS 09/04/2014 02/21/2015 Inactive [AttnRPh: Saving apply/adjudicate RxGRP:SG20 RxBIN:[id number] RxPCN: ID#:[id number]] metformin ER 1,000 mg tablet,extended release 24hr RxNorm: 8 54590 1 Tablet(s) PO BID 08/04/2014 01/28/2015 Inactive [SAVINGS FOR NON -COVERED DRUGS -- BIN:036918, PCN: ASPROD1, Group: XXXXX, ID# XXXXXXX, Questions: . THIS IS NOT INSURANCE.] Bromfed DM 2 mg-30 mg-10 mg/5 mL syrup RxNorm: 5130871 1 -2 Teaspoon(s) PO Q4H as needed for cough 06/10/2014 06/19/2014 Inactive [SAVINGS FOR UN INSURED PATIENTS -- BIN:624640, PCN: ASPROD1, Group: [id number], ID# [id number], Process claim through [employer], for questions: . THIS IS NOT INSURANCE.] Augmentin 875 mg-125 mg tablet RxNorm: 337419 1 Tablet(s) PO Q12H 0 06/10/2014 06/19/2014 Inactive [AttnRPh: Saving apply/adjud icate RxGRP:SG20 RxBIN:[id number] RxPCN: ID#:[id number]] Zocor 40 mg tablet RxNorm: 952642 Tablet(s) 1 TABLET(S ) PO QHS 1 TABLET(S) PO QHS 05/25/2014 08/22/2014 Inactive [AttnRPh: Saving apply/adjudicate RxGRP:SG20 RxBIN:[id number] RxPCN:HT ID#:[id number]] fluoxetine 40 mg capsule RxNorm: 605259 1 Capsule(s) PO QD 04/29/20 14 10/24/2014 Inactive [AttnRPh: Saving apply/adjud icate RxGRP:SG20 RxBIN:[id number] RxPCN:HT ID#:[id number]] diltiazem ER (XR/XT) 240 mg capsule,extended release,control led RxNorm: 766387 1 Capsule(s) PO QD 04/29/2014 10/24/2014 Inactive [AttnRPh: Savin g apply/adjudicate RxGRP:SG20 RxBIN:[id number] RxPCN:HT ID#:[id number]] Benicar HCT 40 mg-25 mg tablet RxNorm: 549309 1 Tablet(s) PO QD 09/201310/24/2014 Inactive [AttnRPh: Saving apply/adjud icate RxGRP:SG20 RxBIN:[id number] RxPCN:HT ID#:[id number]] Zocor 40 mg tablet RxNorm: 173126 1 TABLET(S) PO QHS 1 TABLET(S ) PO QHS 03/07/2014 05/25/2014 Inactive [AttnRPh: Saving chelsie ly/adjudicate RxGRP:SG20 RxBIN:[id number] RxPCN:HT ID#:[id number]] Zocor 40 mg tablet RxNorm: 452465 1 Tablet(s) PO QHS 1 TABLET(S ) PO QHS 12/06/2013 03/05/2014 Inactive [AttnRPh: Saving chelsie ly/adjudicate RxGRP:SG20 RxBIN:[id number] RxPCN:HT ID#:[id number]] diltiazem ER (XR/XT) 240 mg capsule,extended release,control led RxNorm: 022431 1 Capsule(s) PO QD 10/25/2013 04/22/2014 Inactive [AttnRPh: Leonelin g apply/adjudicate RxGRP:SG20 RxBIN:[id number] RxPCN:HT ID#:[id number]] fluoxetine 40 mg capsule RxNorm: 670099 1 Capsule(s) PO QD 10/26/1904/22/2014 Inactive [AttnRPh: Saving apply/adjud icate RxGRP:SG20 RxBIN:[id number] RxPCN:HT ID#:[id number]] Zocor 40 mg tablet RxNorm: 307713 1 Tablet(s) PO QHS 1 TABLET(S ) PO QHS 09/13/2013 12/06/2013 Inactive metformin ER 1,000 mg tablet,extended release 24hr RxNorm: 8 77385 Tablet(s) PO TAKE 1 TABLET BY MOUTH TWICE DAILY (REPLACES 500MG DOSE) 07/26/201303/2015 Inactive diltiazem ER (XR/XT) 240 mg capsule,extended release,control led RxNorm: 444298 1 Capsule(s) PO QD 05/03/2013 10/25/2013 Inactive fluoxetine 40 mg capsule RxNorm: 883735 1 Capsule(s) PO QD 05/03/2010/25/2013 Inactive Benicar HCT 40 mg-25 mg tablet RxNorm: 191362 1 Tablet(s) PO QD 01/201304/29/2014 Inactive Zocor 40 mg tablet RxNorm: 684607 1 Tablet(s) PO QHS 12/10/201209/13 Inactive fluoxetine 40 mg capsule RxNorm: 200835 1 Capsule(s) PO QD 11/10/19 13 05/03/2013 Inactive diltiazem ER (XR/XT) 240 mg capsule,extended release,control led RxNorm: 345904 1 Capsule(s) PO QD 11/09/2012 05/03/2013 Inactive Benicar HCT 40 mg-25 mg tablet RxNorm: 922099 1 Tablet(s) PO QD 05/03/2013 Inactive metformin ER 1,000 mg tablet,extended release 24hr RxNorm: 8 50732 Tablet(s) PO TAKE 1 TABLET BY MOUTH TWICE DAILY (REPLACES 500MG DOSE) 08/05/201206/2013 Inactive Zocor 40 mg tablet RxNorm: 329464 1 Tablet(s) PO QHS 06/15/201212/09 Inactive fluoxetine 40 mg capsule RxNorm: 872480 1 Capsule(s) PO QD 05/15/20 12 11/08/2012 Inactive Neurontin 600 mg Tab RxNorm: 992289 1 Tablet(s) PO QHS 12/03/2011 Inactive metformin ER 1,000 mg tablet,extended release 24hr RxNorm: 8 64990 1 Tablet(s) PO BID replaces 500mg dose 12/03/2011 07/26/2013 Inactive Zocor 40 mg tablet RxNorm: 189166 1 Tablet(s) PO QHS 12/03/201106/15 Inactive fluoxetine 20 mg capsule RxNorm: 693047 1 Capsule(s) PO QD 12/03/19 12 05/24/2012 Inactive diltiazem ER (XR/XT) 240 mg capsule,extended release,control led RxNorm: 725709 1 Capsule(s) PO QD 11/15/2011 11/09/2012 Inactive Benicar HCT 40 mg-25 mg tablet RxNorm: 701915 1 Tablet(s) PO QD 02/16/2012 Inactive metformin ER 500 mg 24 hr Tab RxNorm: 887363 1 Tablet(s) PO BID 12/02/2011 Inactive Zocor 40 mg Tab RxNorm: 918128 1 Tablet(s) PO QHS 05/30/2011 11/25/19 12 Inactive fluoxetine 20 mg Cap RxNorm: 768788 1 Capsule(s) PO QD 05/28/2011 Inactive Neurontin 600 mg Tab RxNorm: 659634 1 Tablet(s) PO QHS 05/28/2011 Inactive Neurontin 600 mg Tab RxNorm: 517633 1 Tablet(s) PO QHS 02/22/201106/2011 Inactive Neurontin 600 mg Tab RxNorm: 741317 1 Tablet(s) PO QHS 01/14/2011 Inactive Neurontin 300 mg Cap RxNorm: 398896 1 Capsule(s) PO QHS 01/14/2011 Inactive Neurontin 600 mg Tab RxNorm: 797399 1 Tablet(s) PO QHS 01/14/2011 Inactive Medrol (Vipul) 4 mg Tabs in a Dose Pack RxNorm: 575387 Tablet(s) PO 0 01/02/2011 08/28/2011 Inactive as directed fluoxetine 20 mg Cap RxNorm: 920213 1 Capsule(s) PO QD 12/10/201006/2011 Inactive Zocor 40 mg Tab RxNorm: 657027 1 Tablet(s) PO QHS 12/03/2010 05/29/19 12 Inactive Neurontin 300 mg Cap RxNorm: 380332 1 Capsule(s) PO QHS 12/03/2010 Inactive Septra DS 800 mg-160 mg Tab RxNorm: 735808 1 Tablet(s) PO BID 11/2912/08/2010 Inactive diltiazem ER (XR/XT) 240 mg Continuous Release Cap RxNorm: 8 03495 1 Capsule(s) PO QD 11/20/2010 11/15/2011 Inactive Neurontin 300 mg Cap RxNorm: 046832 1 Capsule(s) PO QHS 11/06/2010 Inactive Neurontin 300 mg Cap RxNorm: 894617 1 Capsule(s) PO QHS 11/06/2010 Inactive Celebrex 200 mg Cap RxNorm: 745744 1 Capsule(s) PO BID 10/24/2010 Inactive fluoxetine 20 mg Cap RxNorm: 747406 1 Capsule(s) PO QD 06/07/201003/2011 Inactive Zocor 40 mg Tab RxNorm: 749375 1 Tablet(s) PO QHS 06/05/2010 12/02/19 11 Inactive Benicar HCT 40 mg-25 mg Tab RxNorm: 759988 1 Tablet(s) PO QD 200908/21/2011 Inactive Diltiazem 240 mg Continuous Release Cap RxNorm: 964584 1 Capsul e(s) PO QD 11/09/2009 09/02/2018 Inactive Avelox 400 mg Tab RxNorm: 256978 1 Tablet(s) PO QD 08/22/2009 010 Inactive ProAir HFA 90 mcg/actuation aerosol inhaler RxNorm: 306686 2 Puff(s) INH Q4H as needed No Start Date Active tramadol 50 mg tablet RxNorm: 720237 1-2 Tablet(s) PO TID as ne eded for pain No Start Date Active Tylenol Arthritis 650 mg Tab RxNorm: 8786356 2 Tablet(s) PO QD No Sta rt Date Active Celebrex 200 mg Cap RxNorm: 516151 1 Capsule(s) PO BID No Start Date 08/08/2015 Inactive Medrol (Vipul) 4 mg Tabs in a Dose Pack RxNorm: 749283 Tablet(s) PO N o Start Date 01/01/2011 Inactive as directed Promethazine-DM 6.25 mg-15 mg/5 mL Syrup RxNorm: 422434 1-2 Teaspoon(s) PO Q4H prn cough No Start Date 08/28/2011 Inactive Claritin 10 mg tablet RxNorm: 537967 1 Tablet(s) PO QD No Start Date 08/08/2015 Inactive Eivtxnolvy-Qlkdp-OBB-James-115HC Oral RxNorm: Oral No Start Da te 03/28/2019 Inactive Breo Ellipta 200 mcg-25 mcg/dose powder for inhalation RxNor m: 6714514 1 Puff(s) INH QD No Start Date 04/09/2017 Inactive metformin 500 mg Tab RxNorm: 583734 1 Tablet(s) PO QD No Start Date 0 08/17/2011 Inactive Diltiazem 240 mg Continuous Release Cap RxNorm: 318796 1 Capsul e(s) PO BID No Start Date 11/08/2009 Inactive fluoxetine 20 mg Cap RxNorm: 411551 1 Capsule(s) PO QD No Start Date 06/07/2010 Inactive Multivitamin & Mineral Formula Oral RxNorm: Oral No Start Da te 03/28/2019 Inactive Medrol (Vipul) 4 mg tablets in a dose pack RxNorm: 661696 Tablet(s) PO as directed No Start Date 05/28/2012 Inactive Fish Oil 1,000 mg Cap RxNorm: 1 Capsule(s) PO QD No Start Date 07/2018 Inactive Nexium 40 mg Cap RxNorm: 679165 1 Capsule(s) PO QD No Start Date 07/24 Inactive fluticasone 50 mcg/actuation nasal spray,suspension RxNorm: 2479374 2 [place] NASAL QD to each nostril No Start Date 08/03/2017 Inactive Viagra 100 mg tablet RxNorm: 565722 1 Tablet(s) PO as needed No Sta rt Date 09/17/2015 Inactive prednisone 20 mg tablet RxNorm: 613894 1 Tablet(s) PO B ID for 4 days then 1 po daily for 4 days No Start Date 11/23/2018 Inactive Benicar HCT 40 mg-25 mg Tab RxNorm: 244053 1 Tablet(s) PO QD No Sta rt [...] Date S ervice Location MICROALBUMIN URINE RANDOM 94664 MICRL MG/L 5.8 MG/L 03/2011 Unknown MICROALBUMIN URINE RANDOM 29211 XM.ALB/CRE 5.2 MG/GCR Unknown MICROALBUMIN URINE RANDOM 72877 CREAT MG/D 111 MG/DL 03/2011 Unknown MICROALBUMIN URINE RANDOM 10580 CRE/100 1.11 G/L 12/24 Unknown Procedures Procedure Codes Date FLU VACC PRSV FREE INC ANTIG 65 AND OLDER CPT-4: 86649 03/04/2019 ADMIN PNEUMOCOCCAL VACCINE CPT-4: G0009 03/04/2019 ADMIN INFLUENZA VIRUS VAC CPT-4: G0008 03/04/2019 FLU VACC PRSV FREE INC ANTIG 65 AND OLDER CPT-4: 52126 03/04/2019 PNEUMOCOCCAL VACC 23 [facility] CPT-4: 41217 03/04/2019 THER/PROPH/DIAG INJ SC/IM CPT-4: 85506 08/11/2018 TRIAMCINOLONE ACET INJ NOS CPT-4: J3301 08/11/2018 DEXAMETHASONE SODIUM PHOS CPT-4: J1100 08/11/2018 THER/PROPH/DIAG INJ SC/IM CPT-4: 26698 07/16/2018 METHYLPREDNISOLONE INJECTION CPT-4: J2930 07/16/2018 INFLUENZA ASSAY W/OPTIC CPT-4: 41036 07/16/2018 THER/PROPH/DIAG INJ SC/IM CPT-4: 45179 07/13/2018 TRIAMCINOLONE ACET INJ NOS CPT-4: J3301 07/13/2018 THER/PROPH/DIAG INJ SC/IM CPT-4: 65156 05/04/2018 METHYLPREDNISOLONE INJECTION CPT-4: J2930 05/04/2018 FLU VACC PRSV FREE INC ANTIG 65 AND OLDER CPT-4: 68153 02/10/2018 PNEUMOCOCCAL VACC 13 [facility] IM CPT-4: 99198 02/10/2018 ADMIN INFLUENZA VIRUS VAC CPT-4: G0008 02/10/2018 ADMIN PNEUMOCOCCAL VACCINE CPT-4: G0009 02/10/2018 THER/PROPH/DIAG INJ SC/IM CPT-4: 39269 09/09/2017 TRIAMCINOLONE ACET INJ NOS CPT-4: J3301 09/09/2017 ALBUTEROL NON-COMP UNIT CPT-4: J7613 04/10/2017 AIRWAY INHALATION TREATMENT CPT-4: 78488 04/10/2017 PRESCRIP TRANSMIT VIA ERX SY CPT-4: G8553 04/10/2017 FLU VACC PRSV FREE INC ANTIG 65 AND OLDER CPT-4: 74474 03/28/2017 ADMIN INFLUENZA VIRUS VAC CPT-4: G0008 03/28/2017 PRESCRIP TRANSMIT VIA ERX SY CPT-4: G8553 08/27/2016 PRESCRIP TRANSMIT VIA ERX SY CPT-4: G8553 06/14/2016 ALBUTEROL NON-COMP UNIT CPT-4: J7613 06/13/2016 AIRWAY INHALATION TREATMENT CPT-4: 83097 06/13/2016 PRESCRIP TRANSMIT VIA ERX SY CPT-4: [...] CPT-4: G8553 11/07/2014 THER/PROPH/DIAG INJ SC/IM CPT-4: 41707 09/21/2014 METHYLPREDNISOLONE INJECTION CPT-4: J2930 09/21/2014 PRESCRIP TRANSMIT VIA ERX SY CPT-4: G8553 09/21/2014 PRESCRIP TRANSMIT VIA ERX SY CPT-4: G8553 06/10/2014 URINALYSIS NONAUTO W/O SCOPE CPT-4: 04956 06/01/2012 PRESCRIP TRANSMIT VIA ERX SY CPT-4: G8553 05/25/2012 PRESCRIP TRANSMIT VIA ERX SY CPT-4: G8553 12/03/2011 CUR TOBACCO NON-USER CPT-4: G8457 05/30/2011 PRESCRIP TRANSMIT VIA ERX SY CPT-4: G8553 05/30/2011 URINALYSIS NONAUTO W/O SCOPE CPT-4: 44475 01/01/2011 URINE CULTURE/ COLONY COUNT CPT-4: 09692 01/01/2011 CUR TOBACCO NON-USER CPT-4: G8457 01/01/2011 [...] 1: 114/68 Code: 8480-6 BMI: 43.5 Code: 97145-2 Heart Rate 1: 52 bpm Height: 6'1" [...] 1: 136/72 Code: 8480-6 BMI: 42.7 Code: 70608-0 Heart Rate 1: 60 bpm Height: 6'1" Respiratory Rate: 22 bpm SpO2: 95% Tempera ture: 37.1 (C) / 98.7 (F) Weight: 324 lbs 02/10/2018 Blood Pressure 1: 146/78 Code: 8480-6 BMI: 42.4 Code: 03442-7 Heart Rate 1: 64 bpm Height: 6'1" Respiratory Rate: 22 bpm SpO2: 95% Tempera ture: 36.5 (C) / 97.7 (F) Weight: 321 lbs 11/05/2017 Blood Pressure 1: 128/84 Code: 8480-6 BMI: 42.9 Code: 90066-0 Heart Rate 1: 52 bpm Height: 6'1" Respiratory Rate: 22 bpm SpO2: 95% Tempera ture: 36.3 (C) / 97.3 (F) Weight: 325 lbs 09/09/2017 Blood Pressure 1: 162/90 Code: 8480-6 BMI: 42.5 Code: 66679-0 Heart Rate 1: 60 bpm Height: 6'1" Respiratory Rate: 24 bpm SpO2: 95% Tempera ture: 36.4 (C) / 97.6 (F) Weight: 322 lbs 08/07/2017 Blood Pressure 1: 152/90 Code: 8480-6 BMI: 42.2 Code: 51371-8 Heart Rate 1: 60 bpm Height: 6'1" Respiratory Rate: 26 bpm SpO2: 94% Tempera ture: 36.6 (C) / 97.8 (F) Weight: 320 lbs 08/04/2017 Blood Pressure 1: 150/86 Code: 8480-6 BMI: 42.7 Code: 58941-8 Heart Rate 1: 64 bpm Height: 6'1" Respiratory Rate: 20 bpm SpO2: 94% Tempera ture: 36.3 (C) / 97.3 (F) Weight: 324 lbs 06/04/2017 Blood Pressure 1: 164/90 Code: 8480-6 Heart Rate 1: 60 bpm Respiratory Rate: 24 bpm SpO2: 94% Temperature: 36.8 (C) / 98.3 (F) 06/02/2017 Blood Pressure 1: 162/80 Code: 8480-6 BMI: 42.9 Code: 79020-4 Heart Rate 1: 66 bpm Height: 6'1" Respiratory Rate: 22 bpm SpO2: 98% Tempera ture: 36.6 (C) / 97.8 (F) Weight: 325 lbs 05/05/2017 Blood Pressure 1: 164/94 Code: 8480-6 BMI: 41.4 Code: 26384-2 Heart Rate 1: 64 bpm Height: 6'1" Respiratory Rate: 22 bpm SpO2: 95% Tempera ture: 36.4 (C) / 97.5 (F) Weight: 314 lbs 04/10/2017 Blood Pressure 1: 136/78 Code: 8480-6 BMI: 42.0 Code: 75594-7 Heart Rate 1: 76 bpm Height: 6'1" Respiratory Rate: 24 bpm SpO2: 92% Tempera ture: 35.9 (C) / 96.7 (F) Weight: 318 lbs 02/03/2017 Blood Pressure 1: 134/82 Code: 8480-6 BMI: 41.7 Code: 61643-2 Heart Rate 1: 72 bpm Height: 6'1" Respiratory Rate: 24 bpm SpO2: 95% Tempera ture: 36.1 (C) / 97.0 (F) Weight: 316 lbs 10/30/2016 Blood Pressure 1: 126/74 Code: 8480-6 BMI: 41.3 Code: 76734-7 Heart Rate 1: 68 bpm Height: 6'1" Respiratory Rate: 20 bpm Temperature: 37 .1 (C) / 98.8 (F) Weight: 313 lbs 08/30/2016 Blood Pressure 1: 146/80 Code: 8480-6 BMI: 41.7 Code: 10831-9 Heart Rate 1: 64 bpm Height: 6'1" Respiratory Rate: 24 bpm SpO2: 94% Tempera ture: 36.6 (C) / 97.8 (F) Weight: 316 lbs 08/27/2016 Blood Pressure 1: 124/78 Code: 8480-6 Heart Rate 1: 66 bpm Height: 6'2" Respiratory Rate: 18 bpm SpO2: 94% Temperature: 36.6 (C) / 97.8 (F) Weight: 07/02/2016 Blood Pressure 1: 126/78 Code: 8480-6 BMI: 41.4 Code: 75953-7 Heart Rate 1: 68 bpm Height: 6'1" Respiratory Rate: 24 bpm SpO2: 94% Tempera ture: 36.6 (C) / 97.8 (F) Weight: 314 lbs 06/14/2016 Blood Pressure 1: 146/82 Code: 8480-6 Heart Rate 1: 80 bpm Respiratory Rate: 20 bpm SpO2: 95% Temperature: 37.3 (C) / 99.2 (F) 06/13/2016 Blood Pressure 1: 146/84 Code: 8480-6 BMI: 40.5 Code: 18344-4 Heart Rate 1: 66 bpm Height: 6'1" Respiratory Rate: 28 bpm SpO2: 93% Tempera ture: 35.8 (C) / 96.4 (F) Weight: 307 lbs 05/14/2016 Blood Pressure 1: 146/90 Code: 8480-6 BMI: 41.2 Code: 32229-8 Heart Rate 1: 68 bpm Height: 6'1" Respiratory Rate: 26 bpm Temperature: 36 .8 (C) / 98.2 (F) Weight: 312 lbs 04/29/2016 Blood Pressure 1: 152/90 Code: 8480-6 BMI: 41.0 Code: 13895-9 Heart Rate 1: 68 bpm Height: 6'1" Respiratory Rate: 26 bpm SpO2: 94% Tempera ture: 36.1 (C) / 96.9 (F) Weight: 311 lbs 04/22/2016 Blood Pressure 1: 152/94 Code: 8480-6 BMI: 40.9 Code: 59889-0 Heart Rate 1: 68 bpm Height: 6'1" Respiratory Rate: 24 bpm SpO2: 94% Tempera ture: 36.2 (C) / 97.2 (F) Weight: 310 lbs 04/01/2016 Blood Pressure 1: 156/78 Code: 8480-6 BMI: 40.6 Code: 16798-5 Heart Rate 1: 84 bpm Height: 6'1" Respiratory Rate: 22 bpm SpO2: 95% Tempera ture: 37.1 (C) / 98.7 (F) Weight: 308 lbs 11/30/2015 Blood Pressure 1: 142/80 Code: 8480-6 BMI: 40.5 Code: 46654-7 Heart Rate 1: 88 bpm Height: 6'1" Respiratory Rate: 22 bpm Temperature: 36 .2 (C) / 97.2 (F) Weight: 307 lbs 08/29/2015 Blood Pressure 1: 132/70 Code: 8480-6 BMI: 40.0 Code: 24771-8 Heart Rate 1: 76 bpm Height: 6'1" Respiratory Rate: 24 bpm SpO2: 96% Tempera ture: 36.7 (C) / 98.0 (F) Weight: 303 lbs 08/14/2015 Blood Pressure 1: 126/80 Code: 8480-6 BMI: 39.4 Code: 46211-7 Heart Rate 1: 92 bpm Height: 6'1" Respiratory Rate: 24 bpm SpO2: 94% Tempera ture: 37.8 (C) / 100.0 (F) Weight: 299 lbs 08/09/2015 Blood Pressure 1: 146/82 Code: 8480-6 Heart Rate 1: 82 bpm Respiratory Rate: 22 bpm SpO2: 93% Temperature: 35.9 (C) / 96.6 (F) We ight: 310 lbs 05/22/2015 Blood Pressure 1: 156/76 Code: 8480-6 BMI: 41.0 Code: 88022-0 Heart Rate 1: 100 bpm Height: 6'1" Respiratory Rate: 22 bpm Temperature: 37 .2 (C) / 98.9 (F) Weight: 311 lbs 02/13/2015 Blood Pressure 1: 166/90 Code: 8480-6 BMI: 41.2 Code: 68998-4 Heart Rate 1: 72 bpm Height: 6'1" Respiratory Rate: 24 bpm SpO2: 93% Tempera ture: 36.9 (C) / 98.5 (F) Weight: 312 lbs 11/07/2014 Blood Pressure 1: 134/70 Code: 8480-6 BMI: 40.5 Code: 44505-7 Heart Rate 1: 76 bpm Height: 6'1" Respiratory Rate: 24 bpm Temperature: 36 .9 (C) / 98.4 (F) Weight: 307 lbs 10/04/2014 Blood Pressure 1: 144/86 Code: 8480-6 BMI: 40.1 Code: 74613-9 Heart Rate 1: 76 bpm Height: 6'1" Respiratory Rate: 28 bpm Temperature: 36 .6 (C) / 97.9 (F) Weight: 304 lbs 09/22/2014 Blood Pressure 1: 142/80 Code: 8480-6 BMI: 40.0 Code: 01780-8 Heart Rate 1: 80 bpm Height: 6'1" Respiratory Rate: 22 bpm SpO2: 96% Tempera ture: 36.6 (C) / 97.8 (F) Weight: 303 lbs 09/21/2014 Blood Pressure 1: 160/66 Code: 8480-6 BMI: 40.0 Code: 80440-7 Heart Rate 1: 90 bpm Height: 6'1" Respiratory Rate: 26 bpm SpO2: 94% Tempera ture: 35.7 (C) / 96.2 (F) Weight: 303 lbs 06/28/2014 Blood Pressure 1: 132/80 Code: 8480-6 BMI: 41.0 Code: 46405-9 Heart Rate 1: 64 bpm Height: 6' Respiratory Rate: 20 bpm Temperature: 36 .7 (C) / 98.0 (F) Weight: 302 lbs 06/10/2014 Blood Pressure 1: 152/70 Code: 8480-6 BMI: 41.1 Code: 12938-6 Heart Rate 1: 76 bpm Height: 6' Respiratory Rate: 20 bpm Temperature: 36 .6 (C) / 97.8 (F) Weight: 303 lbs 03/29/2014 Blood Pressure 1: 132/78 Code: 8480-6 BMI: 40.6 Code: 66220-6 Heart Rate 1: 84 bpm Height: 6' Respiratory Rate: 22 bpm Temperature: 37 .1 (C) / 98.8 (F) Weight: 299 lbs 11/30/2013 Blood Pressure 1: 136/84 Code: 8480-6 BMI: 39.2 Code: 27418-4 Heart Rate 1: 76 bpm Height: 6' Respiratory Rate: 20 bpm Temperature: 36 .8 (C) / 98.2 (F) Weight: 289 lbs 08/03/2013 Blood Pressure 1: 144/80 Code: 8480-6 Heart Rate 1: 86 bpm Respiratory Rate: 20 bpm Temperature: 36.6 (C) / 97.8 (F) Weight: 296 lbs 04/06/2013 Blood Pressure 1: 142/90 Code: 8480-6 BMI: 40.3 Code: 60570-8 Heart Rate 1: 88 bpm Height: 6' Respiratory Rate: 20 bpm Temperature: 36 .6 (C) / 97.8 (F) Weight: 297 lbs 12/01/2012 Blood Pressure 1: 124/78 Code: 8480-6 BMI: 38.7 Code: 87471-1 Heart Rate 1: 76 bpm Height: 6' Respiratory Rate: 20 bpm Temperature: 37 .2 (C) / 98.9 (F) Weight: 285 lbs 08/04/2012 Blood Pressure 1: 128/80 Code: 8480-6 BMI: 38.2 Code: 47916-4 Heart Rate 1: 76 bpm Height: 6' Respiratory Rate: 20 bpm Temperature: 37 .0 (C) / 98.6 (F) Weight: 282 lbs 05/29/2012 Blood Pressure 1: 138/78 Code: 8480-6 BMI: 36.6 Code: 57472-4 Heart Rate 1: 66 bpm Height: 6' Temperature: 36.7 (C) / 98.1 (F) Weight: 270 lbs 05/25/2012 Blood Pressure 1: 128/72 Code: 8480-6 BMI: 39.9 Code: 83106-5 Heart Rate 1: 74 bpm Height: 6' Temperature: 36.1 (C) / 97.0 (F) Weight: 294 lbs 04/07/2012 Blood Pressure 1: 124/76 Code: 8480-6 BMI: 39.9 Code: 53252-6 Heart Rate 1: 72 bpm Height: 6' Respiratory Rate: 20 bpm Temperature: 36 .9 (C) / 98.5 (F) Weight: 294 lbs 12/16/2011 Blood Pressure 1: 128/80 Code: 8480-6 BMI: 40.8 Code: 73892-4 Heart Rate 1: 74 bpm Height: 6' Temperature: 36.6 (C) / 97.8 (F) Weight: 301 lbs 12/03/2011 Blood Pressure 1: 132/76 Code: 8480-6 BMI: 40.8 Code: 00200-9 Heart Rate 1: 68 bpm Height: 6' Respiratory Rate: 20 bpm Temperature: 36 .8 (C) / 98.2 (F) Weight: 301 lbs 08/29/2011 Blood Pressure 1: 140/68 Code: 8480-6 BMI: 40.8 Code: 38048-9 Heart Rate 1: 80 bpm Height: 6' Respiratory Rate: 20 bpm Temperature: 36 .4 (C) / 97.6 (F) Weight: 301 lbs 05/30/2011 Blood Pressure 1: 134/82 Code: 8480-6 BMI: 41.5 Code: 07689-7 Heart Rate 1: 76 bpm Height: 6' [...] 1: 126/72 Code: 8480-6 BMI: 41.2 Code: 77270-7 Heart Rate 1: 76 bpm Height: 6' [...] 1: 152/90 Code: 8480-6 BMI: 37.7 Code: 53290-7 Heart Rate 1: 92 bpm Height: 6'1" [...] with diabetic neuropathy, unspecified[ICD10: E11.40] Neela HYMAN [facility] CPT-4: 76182 12/01/2019 ([id number]) OFFICE/OUTPATIENT VISIT EST Diagnosis: Chronic obstructive pulmonary disease, unspecified[ICD10: J44.9] Diagnosis: Essential (primary) hypertension[ICD10: I10] Diagnosis: Mixed hyperlipidemia[ICD10: E78.2] Diagnosis: Type 2 diabetes mellitus with hyperglycemia[ICD10: E11.65] Neela HYMAN [facility] CPT-4: 21344 08/30/2019 ([id number]) OFFICE/OUTPATIENT VISIT EST Diagnosis: Chronic obstructive pulmonary disease with (acute) exacerbation[ICD10: J44.1] Neela HYMAN [facility] CPT- 4: 72994 08/10/2019 ([id number]) OFFICE/OUTPATIENT VISIT EST Diagnosis: Sore on toe[ICD10: L98.9] [facility] CPT-4: 39278 07/06/2019 ([id number]) OFFICE/OUTPATIENT VISIT EST Diagnosis: Advanced chronic obstructive pulmonary disease[ICD10: J44.9] 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] [facility]: 41211 05/10/2019 ([id number]) OFFICE/OUTPATIENT VISIT EST Diagnosis: Chronic obstructive pulmonary disease with (acute) exacerbation[ICD10: J44.1] Diagnosis: Hypokalemia[ICD10: E87.6] 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] [facility]: 06302 03/29/2019 ([id number]) NURSE/OUTPATIENT VISIT EST Diagnosis: PNEUMOCOCCAL VACCINE[ICD10: Z23] [facility]: 21783 03/04/2019 ([id number]) OFFICE/OUTPATIENT VISIT EST Diagnosis: Chronic obstructive pulmonary disease with (acute) exacerbation[ICD10: J44.1] Diagnosis: Other nonspecific abnormal finding of lung field[ICD10: R91.8] [facility] CPT-4: 25917 01/05/2019 ([id number]) OFFICE/OUTPATIENT VISIT EST Diagnosis: Solitary pulmonary nodule[ICD10: R91.1] 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 CPT-4: 18344 09/16/2018 ([id number]) OFFICE/OUTPATIENT VISIT EST Diagnosis: Pneumonia, unspecified organism[ICD10: J18.9] Neela HYMAN [facility] CPT-4: 66336 09/03/2018 ([id number]) OFFICE/OUTPATIENT VISIT EST Diagnosis: Personal history of pneumonia (recurrent)[ICD10: Z87.01] Diagnosis: Cough[ICD10: R05] Diagnosis: Essential (primary) hypertension[ICD10: I10] Diagnosis: Type 2 diabetes mellitus with hyperglycemia[ICD10: E11.65] Amita HYMAN [facility] CPT-4: 62430 08/27/2018 OFFICE/OUTPATIENT VISIT EST Diagnosis: Pneumonia, unspecified organism[ICD10: J18.9] Diagnosis: Chronic obstructive pulmonary disease with (acute) exacerbation[ICD10: J44.1] Diagnosis: Other specified symptoms and signs involving the circulatory and respiratory systems[ICD10: R09.89] Diagnosis: Essential (primary) hypertension[ICD10: I10] Amita HYMAN [facility] CPT-4: 71075 08/13/2018 OFFICE/OUTPATIENT VISIT EST Diagnosis: Pneumonia, unspecified organism[ICD10: J18.9] Diagnosis: Other specified symptoms and signs involving the circulatory and respiratory systems[ICD10: R09.89] Amitacalvin HYMAN [facility] CPT-4: 29063 08/11/2018 ([id number]) OFFICE/OUTPATIENT VISIT EST Diagnosis: Dyspnea, unspecified[ICD10: R06.00] Diagnosis: Chronic obstructive pulmonary disease with (acute) exacerbation[ICD10: J44.1] Diagnosis: Pneumonia, unspecified organism[ICD10: J18.9] Amitacalvin HYMAN [facility] CPT-4: 85972 07/16/2018 ([id number]) OFFICE/OUTPATIENT VISIT EST Diagnosis: Acute bronchitis due to other specified organisms[ICD10: J20.8] Diagnosis: Cough[ICD10: R05] Amita Santiago HYMAN [employer] [facility] [facility] T-4: 99784 07/13/2018 ([id number]) OFFICE/OUTPATIENT VISIT EST Diagnosis: Essential (primary) hypertension[ICD10: I10] Diagnosis: Chronic obstructive pulmonary disease, unspecified[ICD10: J44.9] Diagnosis: Type 2 diabetes mellitus with hyperglycemia[ICD10: E11.65] Diagnosis: Mixed hyperlipidemia[ICD10: E78.2] Neela Sergemelany FRIEND ASHER HMYAN [employer] [facility] CPT-4: 80773 06/03/2018 ([id number]) OFFICE/OUTPATIENT VISIT EST Diagnosis: Chronic obstructive pulmonary disease, unspecified[ICD10: J44.9] Gely HYMAN [facility] [facility] CPT-4: 72337 05/04/2018 ([id number]) OFFICE/OUTPATIENT VISIT EST Diagnosis: Essential (primary) hypertension[ICD10: I10] Diagnosis: Localized edema[ICD10: R60.0] Neela Yenni MIRZALINE Octavio HYMAN [facility] [facility] CPT-4: 98075 03/03/2018 ([id number]) OFFICE/OUTPATIENT VISIT EST Diagnosis: Localized edema[ICD10: R60.0] Neela MIRZALINE Octavio HYMAN [facility] [facility] CPT-4: 78624 02/17/2018 ([id number]) OFFICE/OUTPATIENT VISIT EST Diagnosis: FLU VACCINE[ICD10: Z23] Diagnosis: PNEUMOCOCCAL VACCINE[ICD10: Z23] Diagnosis: Type 2 diabetes mellitus without complications[ICD10: E11.9] Diagnosis: Mixed hyperlipidemia[ICD10: E78.2] Diagnosis: Essential (primary) hypertension[ICD10: I10] Diagnosis: Localized edema[ICD10: R60.0] Diagnosis: Chronic obstructive pulmonary disease, unspecified[ICD10: J44.9] Neela MIRZALINE Octavio HYMAN [facility] CPT-4: 52647 02/10/2018 ([id number]) OFFICE/OUTPATIENT VISIT EST Diagnosis: Type 2 diabetes mellitus with hyperglycemia[ICD10: E11.65] Diagnosis: Mixed hyperlipidemia[ICD10: E78.2] Diagnosis: Essential (primary) hypertension[ICD10: I10] Diagnosis: Chronic obstructive pulmonary disease, unspecified[ICD10: J44.9] Diagnosis: Cutaneous abscess of back [any part, except buttock][ICD10: L02.212] Neela HYMAN [facility] CPT-4: 49535 11/05/2017 ([id number]) OFFICE/OUTPATIENT VISIT EST Diagnosis: Allergic urticaria[ICD10: L50.0] Gely HYMAN DO [facility] CPT-4: 87244 09/09/2017 ([id number]) OFFICE/OUTPATIENT VISIT EST Diagnosis: Generalized enlarged lymph nodes[ICD10: R59.1] Diagnosis: Acute gastritis without bleeding[ICD10: K29.00] Gely HYMAN DO [facility] CPT-4: 59612 08/07/2017 ([id number]) OFFICE/OUTPATIENT VISIT EST Diagnosis: Type 2 diabetes mellitus without complications[ICD10: E11.9] Diagnosis: Mixed hyperlipidemia[ICD10: E78.2] Diagnosis: Essential (primary) hypertension[ICD10: I10] Neela HYMAN [facility] CPT-4: 69008 08/04/2017 ([id number]) OFFICE/OUTPATIENT VISIT EST Diagnosis: Zoster without complications[ICD10: B02.9] Diagnosis: Acute sialoadenitis[ICD10: K11.21] Gely HYMAN [facility] CPT-4: 18789 06/04/2017 OFFICE/OUTPATIENT VISIT EST Diagnosis: Zoster without complications[ICD10: B02.9] Diagnosis: Acute sialoadenitis[ICD10: K11.21] Gely HYMAN [facility] CPT-4: 67001 06/02/2017 ([id number]) OFFICE/OUTPATIENT VISIT EST Diagnosis: Type 2 diabetes mellitus without complications[ICD10: E11.9] Diagnosis: Mixed hyperlipidemia[ICD10: E78.2] Diagnosis: Essential (primary) hypertension[ICD10: I10] Diagnosis: Chronic obstructive pulmonary disease, unspecified[ICD10: J44.9] Neela HYMAN DO [facility] CPT-4: 85261 05/05/2017 OFFICE/OUTPATIENT VISIT EST Diagnosis: Chronic obstructive pulmonary disease with acute lower respiratory infection[ICD10: J44.0] Diagnosis: Impacted cerumen, bilateral[ICD10: H61.23] Gely HYMAN [facility] CPT-4: 60713 04/10/2017 ([id number]) OFFICE/OUTPATIENT VISIT EST Diagnosis: FLU VACCINE[ICD10: Z23] Neela BUI [facility] CPT-4: 32273 03/28/2017 ([id number]) OFFICE/OUTPATIENT VISIT EST Diagnosis: Type 2 diabetes mellitus without complications[ICD10: E11.9] Diagnosis: Mixed hyperlipidemia[ICD10: E78.2] Diagnosis: Essential (primary) hypertension[ICD10: I10] Diagnosis: Chronic obstructive pulmonary disease, unspecified[ICD10: J44.9] Neela HYMAN [facility] CPT-4: 01780 02/03/2017 ([id number]) OFFICE/OUTPATIENT VISIT EST Diagnosis: Type 2 diabetes mellitus with hyperglycemia[ICD10: E11.65] Diagnosis: Mixed hyperlipidemia[ICD10: E78.2] Diagnosis: Essential (primary) hypertension[ICD10: I10] Diagnosis: Chronic obstructive pulmonary disease, unspecified[ICD10: J44.9] Neela HYMAN [facility] CPT-4: 04758 10/30/2016 ([id number]) NO CHARGE Diagnosis: Acute bronchitis, unspecified[ICD10: J20.9] Sammi HYMAN [facility] CPT-4: 69039 08/30/2016 ([id number]) OFFICE/OUTPATIENT VISIT EST Diagnosis: Acute bronchitis, unspecified[ICD10: J20.9] Diagnosis: Other seasonal allergic rhinitis[ICD10: J30.2] Sammi HYMAN [facility] CPT-4: 28461 08/27/2016 ([id number]) OFFICE/OUTPATIENT VISIT EST Diagnosis: Type 2 diabetes mellitus without complications[ICD10: E11.9] Diagnosis: Mixed hyperlipidemia[ICD10: E78.2] Diagnosis: Essential (primary) hypertension[ICD10: I10] Neela HYMAN [facility] CPT-4: 21910 07/02/2016 ([id number]) OFFICE/OUTPATIENT VISIT EST Diagnosis: Acute bronchitis, unspecified[ICD10: J20.9] Sammi HYMAN DO [facility] CPT-4: 84829 06/14/2016 ([id number]) OFFICE/OUTPATIENT VISIT EST Diagnosis: Acute bronchitis, unspecified[ICD10: J20.9] Sammi HYMAN DO [facility] CPT-4: 21693 06/13/2016 ([id number]) OFFICE/OUTPATIENT VISIT EST Diagnosis: Essential (primary) hypertension[ICD10: I10] Neela HYMAN DO [facility] CPT-4: 14351 05/14/2016 ([id number]) OFFICE/OUTPATIENT VISIT EST Diagnosis: Essential (primary) hypertension[ICD10: I10] Neela HYMAN DO [facility] CPT-4: 95417 04/29/2016 ([id number]) OFFICE/OUTPATIENT VISIT EST Diagnosis: Unspecified abdominal pain[ICD10: R10.9] Diagnosis: Left lower quadrant pain[ICD10: R10.32] Diagnosis: Left upper quadrant pain[ICD10: R10.12] Diagnosis: Essential (primary) hypertension[ICD10: I10] Neela HYMAN DO [facility] CPT-4: 27494 04/22/2016 ([id number]) OFFICE/OUTPATIENT VISIT EST Diagnosis: Type 2 diabetes mellitus without complications[ICD10: E11.9] Diagnosis: Mixed hyperlipidemia[ICD10: E78.2] Diagnosis: Essential (primary) hypertension[ICD10: I10] Neela HYMAN DO [facility] CPT-4: 27694 04/01/2016 ([id number]) OFFICE/OUTPATIENT VISIT EST Diagnosis: Type 2 diabetes mellitus with hyperglycemia[ICD10: E11.65] Diagnosis: Mixed hyperlipidemia[ICD10: E78.2] Diagnosis: Essential (primary) hypertension[ICD10: I10] Neela HYMAN DO [facility] CPT-4: 43146 11/30/2015 ([id number]) OFFICE/OUTPATIENT VISIT EST Diagnosis: Type 2 diabetes mellitus with diabetic neuropathy, unspecified[ICD10: E11.40] Diagnosis: Essential (primary) hypertension[ICD10: I10] Diagnosis: Mixed hyperlipidemia[ICD10: E78.2] Neela STERLING Octavio HYMAN DO [facility] CPT-4: [address] 08/29/2015 ([id number]) OFFICE/OUTPATIENT VISIT EST Diagnosis: COUGH[ICD10: R05] Diagnosis: Wheezing[ICD10: R06.2] Diagnosis: Type 2 diabetes mellitus with diabetic neuropathy, unspecified[ICD10: E11.40] Neela MURILLO JulissaMendez YENNI ARTHUR [facility] CPT-4: 41710 08/14/2015 ([id number]) OFFICE/OUTPATIENT VISIT EST Diagnosis: Other seasonal allergic rhinitis[ICD10: J30.2] Diagnosis: Dyspnea, unspecified[ICD10: R06.00] Diagnosis: Wheezing[ICD10: R06.2] Sammi Najera NEELA Cunningham YENNI ARTHUR [facility] CPT-4: 67278 08/09/2015 ([id number]) OFFICE/OUTPATIENT VISIT EST Diagnosis: Essential (primary) hypertension[ICD10: I10] Diagnosis: Type 2 diabetes mellitus with hyperglycemia[ICD10: E11.65] Diagnosis: Mixed hyperlipidemia[ICD10: E78.2] Neela STERLING Octavio HYMAN [employer] [facility] CPT-4: 09839 05/22/2015 ([id number]) OFFICE/OUTPATIENT VISIT EST Diagnosis: 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] Diagnosis: - I - HYPERTENSION[ICD9: 401.9] Diagnosis: - I - HYPERLIPIDEMIA NEC/NOS[ICD9: 272.4] Diagnosis: Left hand paresthesia[ICD9: 782.0] Neela STERLING Octavio HYMAN [employer] [facility] CPT-4: 41247 02/13/2015 ([id number]) OFFICE/OUTPATIENT VISIT EST Diagnosis: HYPERLIPIDEMIA NEC/NOS[ICD9: 272.4] Diagnosis: 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] Neela MURILLO JulissaMendez YENNI [employer] [facility] CPT-4: 18485 11/07/2014 ([id number]) OFFICE/OUTPATIENT VISIT EST Diagnosis: ALLERGIC RHINITIS[ICD9: 477.9] Diagnosis: WHEEZING[ICD9: 786.07] Neela BADILLO [facility] CPT-4: 46626 10/04/2014 ([id number]) OFFICE/OUTPATIENT VISIT EST Diagnosis: BRONCHITIS, ACUTE[ICD9: 466.0] Diagnosis: WHEEZING[ICD9: 786.07] Loren Duarte [facility] CPT-4: 22707 09/22/2014 ([id number]) OFFICE/OUTPATIENT VISIT EST Diagnosis: DYSPNEA[ICD9: 786.09] Diagnosis: WHEEZING[ICD9: 786.07] Diagnosis: Arrhythmia[ICD9: 427.9] Loren BUI [facility] CPT-4: 91206 09/21/2014 ([id number]) OFFICE/OUTPATIENT VISIT EST Diagnosis: 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, 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] Diagnosis: - I - HYPERLIPIDEMIA NEC/NOS[ICD9: 272.4] Diagnosis: - I - HYPERTENSION[ICD9: 401.9] Neela [facility] CPT-4: 36143 06/28/2014 OFFICE/OUTPATIENT VISIT EST Diagnosis: SINUSITIS, ACUTE[ICD9: 461.9] Diagnosis: OTITIS MEDIA NOS[ICD9: 382.9] Sarah Cunningham [facility] CPT-4: 30136 06/10/2014 ([id number]) OFFICE/OUTPATIENT VISIT EST Diagnosis: 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] Diagnosis: - I - HYPERLIPIDEMIA NEC/NOS[ICD9: 272.4] Diagnosis: - I - HYPERTENSION[ICD9: 401.9] Neela Cunningham [facility] CPT-4: 08658 03/29/2014 ([id number]) OFFICE/OUTPATIENT VISIT EST Diagnosis: 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] Diagnosis: - I - HYPERTENSION[ICD9: 401.9] Diagnosis: - I - HYPERLIPIDEMIA NEC/NOS[ICD9: 272.4] Diagnosis: Hand lesion[ICD9: 709.9] Neela MURILLO JulissaMendez [facility] CPT-4: 78871 11/30/2013 ([id number]) OFFICE/OUTPATIENT VISIT EST Diagnosis: 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] Diagnosis: HYPERLIPIDEMIA NEC/NOS[ICD9: 272.4] Diagnosis: HYPERTENSION[ICD9: 401.9] Neela VASQUEZ [facility] CPT-4: 43210 08/03/2013 ([id number]) OFFICE/OUTPATIENT VISIT EST Diagnosis: 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, 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] Diagnosis: HYPERTENSION[ICD9: 401.9] Diagnosis: HYPERLIPIDEMIA NEC/NOS[ICD9: 272.4] Neela HYMAN [facility] CPT-4: 45074 04/06/2013 ([id number]) OFFICE/OUTPATIENT VISIT EST Diagnosis: 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] Diagnosis: HYPERLIPIDEMIA NEC/NOS[ICD9: 272.4] Diagnosis: HYPERTENSION[ICD9: 401.9] [facility]: 40955 12/01/2012 ([id number]) OFFICE/OUTPATIENT VISIT EST Diagnosis: 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] Diagnosis: HYPERTENSION[ICD9: 401.9] Diagnosis: HYPERLIPIDEMIA NEC/NOS[ICD9: 272.4] Neela HYMAN [facility] CPT-4: 37058 08/04/2012 ([id number]) OFFICE/OUTPATIENT VISIT EST Diagnosis: URINARY FREQUENCY[ICD9: 788.41] Neela Sergegemmainna HYMAN [facility] CPT-4: 60031 06/01/2012 OFFICE/OUTPATIENT VISIT EST Diagnosis: Agitation[ICD9: 307.9] Diagnosis: Frequent urination[ICD9: 788.41] Janet Jean Baptiste NEELA Octavio HYMAN [facility] CPT-4: 35841 05/29/2012 OFFICE/OUTPATIENT VISIT EST Diagnosis: SINUSITIS, ACUTE[ICD9: 461.9] Diagnosis: OTALGIA[ICD9: 388.70] Neela Sergegemaminna MIRZANEELA Octavio HYMAN [facility] CPT-4: 06654 05/25/2012 OFFICE/OUTPATIENT VISIT EST Diagnosis: 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, 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] Diagnosis: HYPERTENSION[ICD9: 401.9] Diagnosis: HYPERLIPIDEMIA NEC/NOS[ICD9: 272.4] Neela GREGORIO SMendez [facility] CPT-4: 60420 04/07/2012 OFFICE/OUTPATIENT VISIT EST Diagnosis: FINGER INJURY[ICD9: 959.5] Janet Jean Baptiste NEELA Cunningham AXEL ARPIT [facility] CPT-4: 64532 12/16/2011 ([id number]) OFFICE/OUTPATIENT VISIT EST Diagnosis: 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, 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] Diagnosis: HYPERTENSION[ICD9: 401.9] Diagnosis: HYPERLIPIDEMIA NEC/NOS[ICD9: 272.4] Neela GREGORIO SMendez ORENDER [facility] CPT-4: 21677 12/03/2011 ([id number]) OFFICE/OUTPATIENT VISIT EST Diagnosis: 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] Diagnosis: HYPERLIPIDEMIA NEC/NOS[ICD9: 272.4] Diagnosis: HYPERTENSION[ICD9: 401.9] Neela Cunningham ORE NDER DO [facility] CPT-4: 10978 08/29/2011 OFFICE/OUTPATIENT VISIT EST Diagnosis: 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] Diagnosis: HYPERLIPIDEMIA NEC/NOS[ICD9: 272.4] Diagnosis: HYPERTENSION[ICD9: 401.9] Neela MURILLO SMendez [facility] CPT-4: 91657 05/30/2011 OFFICE/OUTPATIENT VISIT EST Diagnosis: SKIN SENSATION DISTURB[ICD9: 782.0] Neela GREGORIO SMendez [facility] CPT-4: 04337 01/29/2011 OFFICE/OUTPATIENT VISIT EST Diagnosis: SKIN SENSATION DISTURB[ICD9: 782.0] Neela GREGORIO SMendez [facility] CPT-4: 68405 01/14/2011 OFFICE/OUTPATIENT VISIT EST Neela MRUILLO SMendez [facility] CPT- 4: 61490 01/01/2011 OFFICE/OUTPATIENT VISIT EST Neela Cunningham [facility] CPT- 4: 74750 11/29/2010 ([id number]) OFFICE/OUTPATIENT VISIT [facility] CPT-4: 12068 08/28/2010 ([id number]) OFFICE/OUTPATIENT VISIT, EST Neela [facility] CPT-4: 35441 06/05/2010 ([id number]) OFFICE/OUTPATIENT VISIT, EST Neela [facility] CPT-4: 41240 02/05/2010 ([id number]) OFFICE/OUTPATIENT VISIT, EST Neela [facility] CPT-4: 41713 10/09/2009 ([id number]) OFFICE/OUTPATIENT VISIT, [facility]TA [facility] CPT-4: 69294 08/22/2009 Plan of Care Planned Activity Notes [...] J44.9 08/30/2019 Appointment: Neela [facility]el[facility] [phone] [facility] [facility] 08/30/2019 Visit Diagnosis Plan: Chronic [...] : J44.1 08/10/2019 Appointment: Neela Hyman WPtel: [address] [place], [place] [phone] ACUTE ILLNESS 08/10/2019 Visit Diagnosis Plan: Sore on toe Discussion: Keep farhat an/dry Keflex Notify if worsens ICD-9 : 709.9 ICD-10 : L98.9 07/06/2019 Appointment: Neela Hyman WPtel: [address] [place] [address] ACUTE ILLNESS 07/06/2019 Patient Education: Abdoulaye [employer] [id number] https://www.[employer]/Startlocal/resources/getResource/61/[email or web address] Completed 07/06/2019 Visit Diagnosis Plan: Lymphoma involving lung Discussi on: Doing weekly lab and chemo ICD-9 : 202.82 ICD-10 : C85.99 05/10/2019 Visit Diagnosis Plan: Advanced chronic obstructive pul monary disease Discussion: Continue oxygen and pulmonary rehab Follow Up: 3 months ICD-9 : 496 ICD-10 : J44.9 05/10/2019 Appointment: Neela Hyman WPtel: [address] [place], [place] [phone] FOLLOW UP 05/10/2019 Appointment: Neela Hymantel: [address] [place], [place] [phone] he called 04/14/19-- he was at physical [...] : C85.99 03/29/2019 Appointment: Neela Hyman WPtel: [address] [place], [place] [phone] Hospital Follow Up 03/29/2019 Appointment: Neela Hyman WPtel: [address] [place], [place] [phone] [place] INJECTION 03/04/2019 Visit Diagnosis Plan: Chronic obstructiv e pulmonary disease with (acute) exacerbation Discussion: Increase SVNS with duoneb to QID Prednisone taper ICD-9 : 491.21 ICD-10 : J44.1 01/05/2019 Visit Diagnosis Plan: Other nonspecific abnormal findi ng of lung field Discussion: Referral to pulmonology--will likely need bronchoscopy--path results discussed ICD-9 : 786.6 ICD-10 : R91.8 01/05/2019 Appointment: Neela Hyman WPtel: [address] [place], [place] [phone] [place] FOLLOW UP 01/05/2019 Patient Education: prednisone- [employer] Coupon [phone] https://www.[employer]/resources/getResource/61/[email or web address]-nv Completed 01/05/2019 Care Plan: Referral Order SNOMED-CT : 30 [id number] Pending 01/05/2019 Appointment: Neela Hyman WPtel: [address] [place], [place] [id number] [place] CANCELED 12/21/2018 Visit Diagnosis Plan: Solitary pulmonary nodule Discus esmer: CT guided needle biopsy of RUL lung mass ICD-9 : 793.11 ICD-10 : R91.1 12/09/2018 Visit Diagnosis Plan: Tinea corporis Discussion: Diflu can--hold simvastatin and fenofibrate while taking ICD-9 : 110.5 ICD-10 : B35.4 12/09/2018 Appointment: Neela Hyman WPtel: [address] [place] [address] [place] FOLLOW UP 12/09/2018 Appointment: Gely Harp [address] [address] [place] NO SHOW 12/01/2018 Visit Diagnosis Plan: [...] : J98.4 11/24/2018 Appointment: Neela Hyman WPtel: [address] [place] [address] FOLLOW UP 11/24/2018 Care Plan: PET IMAGE FULL BODY LOINC : 4 2711-2 Pending 11/24/2018 Appointment: Neela Hyman WPtel: [address] [place], [place] [phone] [place] Consult 09/21/2018 Visit Diagnosis Plan: Pneumonia, unspecified organism Discussion: Patient clinically improved. Recent CT scan from 09/07 showed unresolved right upper lobe pneumonia. Finished another 7 days of levaquin. Will repeat CBC early next week. Order sent with patient to get done at [facility]. FU CT recommended in 4 weeks. Patient states understanding. ICD-9 : 486 ICD-10 : J18.9 09/16/2018 Appointment: Amita Henderson [address] [facility] FOLLOW UP 09/16/2018 Visit Diagnosis Plan: Pneumonia, unspecified organism Discussion: Clinically patient feels and looks much better but need CT scan of chest due to ongoing round pneumonia in association with his known lymphoma ICD-9 : 486 ICD-10 : J18.9 09/03/2018 Appointment: Neela Hyman WPtel: [id number] FOLLOW UP 09/03/2018 Care Plan: CT THORAX [...] ICD-10 : I10 08/27/2018 Appointment: Amita Henderson [address] [place], [place] [address] FOLLOW UP 08/27/2018 Visit Diagnosis Plan: Pneumonia, [...] : R09.89 08/13/2018 Appointment: Amita Henderson [facility] [employer] [id number] [place]UST FOLLOW UP 08/13/2018 Appointment: Amita Henderson [facility] [employer] [id number] CANCELED 08/13/2018 Patient Education: prednisone- [employer] Coupon [phone] https://www.[employer]/sampleJoin [employer]/resources/getResource/61/[email or web address] Completed 08/13/2018 Visit Diagnosis Plan: Other specified [...] ICD-10 : J18.9 08/11/2018 Appointment: Amita Henderson [facility] [employer] [id number] ACUTE ILLNESS 08/11/2018 Care Plan: CHEST X-RAY 2VW FRONTAL&LATL LOINC : 75886-9 Pending 07/20/2018 Visit Diagnosis Plan: Dyspnea, unspecified Discussion: CXR- to be completed at the hospital. Will call with results and any adjustments in plan. Solumedrol 125 administered in clinic Prednisone 20 mg BID x 5 days- start tomorrow ICD-9 : 786.09 ICD-10 : R06.00 07/16/2018 Appointment: Amita Henderson [address] [place], [place] [address] ACUTE ILLNESS 07/16/2018 Patient Education: prednisone- [employer] Coupon [phone] https://www.[employer]/sample[employer] Players/resources/getResource/61/[email or web address]-fr74-8xe6-j7 Completed 07/16/2018 Visit Diagnosis Plan: Acute bronchitis due to other sp ecified organisms Discussion: Kenalog 40 mg IM administered in clinic. Doxycycline called into [facility]. Take as directed. Continue nebulizer and Trelegy. Follow up if symptoms are not improving with treatment regimen. Patient states understanding of all instruction. ICD-9 : 466.0 ICD-10 : J20.8 07/13/2018 Appointment: Amita Henderson [address] [place], [place] [address] ACUTE ILLNESS 07/13/2018 Patient Education: doxycycline hyclate- [employer] Cou saritha [phone] https://www.[employer]/resources/getResource/61/5d391x74-6g1j-8991-8x Completed 07/13/2018 Care Plan: [place] : [address]-3 Pending 07/13/2018 Care Plan: CBC Pending 07/13/2018 Care Plan: A1C HPLC LOINC : 01877-8 Pending 07/13/2018 Visit Diagnosis Plan: Mixed hyperlipidemia [...] I10 06/03/2018 Appointment: Neela [facility]yman WPtel: [phone] [facility] [place] FOLLOW UP 06/03/2018 Visit Diagnosis Plan: [...] ICD-10 : J44.9 05/04/2018 Appointment: Gely Harp [address] [place], [place] [phone] ACUTE ILLNESS 05/04/2018 Visit Diagnosis Plan: Localized edema Discussion: Cont inue lasix and potassium at every other day Recheck lab and fwup in 3mos Follow Up: 3 months ICD-9 : 782.3 ICD-10 : R60.0 03/03/2018 Appointment: Neela Hyman WPtel: [address] [place], [place] [phone] FOLLOW UP 03/03/2018 Patient Education: Patient Medication Summary Completed 03/03/2018 Visit Diagnosis Plan: Localized edema Discussion: Ficnh ge lasix and potassium to every other day Check Chem 7 in 2 weeks and fwup ICD-9 : 782.3 ICD-10 : R60.0 02/17/2018 Appointment: Neela Hyman WPtel: [address] [place], [place] [phone] FOLLOW UP 02/17/2018 Patient Education: Patient [...] : R60.0 02/10/2018 Appointment: Neela Hyman WPtel: [address] [place], [place] [phone] [place] FOLLOW UP 02/10/2018 Patient Education: Patient [...] : L02.212 11/05/2017 Appointment: Neela Hyman WPtel: [address] [place], [place] [phone] [place] FOLLOW UP 11/05/2017 Patient Education: Patient Medication Summary Completed 11/05/2017 Patient Education: Patient Medication Summary Completed 11/03/2017 Care Plan: [place] : [address]-6 Pending 11/03/2017 Care Plan: LIPID PANEL LOINC : 01971-4 Pending 11/03/2017 Care Plan: CBC Pending 11/03/2017 Care Plan: A1C HPLC LOINC : 13613-0 Pending 11/03/2017 Visit Diagnosis Plan: Allergic urticaria [...] ICD-10 : L50.0 09/09/2017 Appointment: Gely Harp [address] [place], [place] [phone] ACUTE ILLNESS 09/09/2017 Patient Education: Patient [...] ICD-10 : R59.1 08/07/2017 Appointment: Gely Harp [address] [place], [place] [phone] Hospital Follow Up 08/07/2017 Patient Education: Patient Medication Summary Completed 08/07/2017 Visit Diagnosis Plan: Type 2 diabetes mellitus without complications Discussion: Accuchecks daily Lab discussed Continue current meds ICD-9 : 250.00 ICD-10 : E11.9 08/04/2017 Visit Diagnosis Plan: Essential (primary) hypertension Discussion: Increase Cardizem CD to 360mg daily ICD-9 : 401.9 ICD-10 : I10 08/04/2017 Appointment: Neela Hyman WPtel: [phone] [facility] FOLLOW UP 08/04/2017 Patient Education: Patient Medication Summary Completed 08/04/2017 Patient Education: Patient Medication Summary Completed 07/31/2017 Care Plan: [place] : 66[address]-2 Pending 07/31/2017 Care Plan: ASSAY THYROID STIM HORMONE Pen ding 07/31/2017 Care Plan: LIPID PANEL LOINC : 39350-9 Pending 07/31/2017 Care Plan: CBC Pending 07/31/2017 Care Plan: A1C HPLC LOINC : 72394-1 Pending 07/31/2017 Patient Education: Patient Medication Summary Completed 06/19/2017 Patient Education: Patient Medication Summary Completed 06/09/2017 Care Plan: CT SOFT TISSUE [place] : [address]-2 Pending 06/09/2017 Visit Diagnosis Plan: Acute sialoadenitis [...] ICD-10 : B02.9 06/04/2017 Appointment: Gely Harp [address] [place] [address] ACUTE ILLNESS 06/04/2017 Patient Education: Patient Medication [...] ICD-10 : B02.9 06/02/2017 Appointment: Gely Harp [address] [place] [address] ACUTE ILLNESS 06/02/2017 Patient Education: Patient Medication [...] Appointment: Neela Hyman WPtel: [phone] [facility] FOLLOW UP 05/05/2017 Patient Education: Patient Medication Summary Completed 05/05/2017 Patient Education: Patient Medication Summary Completed 05/01/2017 Care Plan: A1C HPLC [facility] : 17791-6 Pending 05/01/2017 Visit Diagnosis Plan: Chronic obstructiv [...] ICD-10 : H61.23 04/10/2017 Appointment: Gely Harp [address] [place], [place] [phone] ACUTE ILLNESS 04/10/2017 Patient Education: Patient Medication Summary Completed 04/10/2017 Appointment: Neela Hyman WPtel: [phone] [facility] [place] INJECTION 03/28/2017 Patient Education: Patient Medication [...] : J44.9 02/03/2017 Appointment: Neela Hyman WPtel: [address] [place], [place] [address] [place] FOLLOW UP 02/03/2017 Patient Education: Patient Medication Summary Completed 02/03/2017 Patient Education: Patient Medication Summary Completed 01/30/2017 Care Plan: [place] : [address]-1 Pending 01/30/2017 Care Plan: LIPID PANEL LOINC : 14693-6 Pending 01/30/2017 Care Plan: CBC Pending 01/30/2017 Care Plan: A1C HPLC LOINC : 46299-9 Pending 01/30/2017 Care Plan: ASSAY OF PSA [...] : E11.65 10/30/2016 Appointment: Neela Hyman WPtel: [facility] [place] 10/29 lm ~sl 10/30 confirmed~sl FOLLOW UP 11/2016 Patient Education: Patient Medication Summary Completed 10/30/2016 Patient Education: Patient Medication Summary Completed 10/24/2016 Visit Diagnosis Plan: Acute bronchitis, unspecified Di scussion: Patient sounds and looks much improved Continue current regimen Keep appt with Dr Levi for Friday Follow up PRN ICD-9 : 466.0 ICD-10 : J20.9 08/30/2016 Appointment: Sammi Najera [facility] [facility] 08/29 rang and rang rang 08/30 rang [...] ICD-10 : J20.9 08/27/2016 Appointment: [facility]ammi [facility]ajera[facility] FO[facility] 08/27/2016 Patient Education: Patient Medication Summary Completed 08/27/2016 Care Plan: Referral Order SNOMED-CT : 30 [id number] Pending 08/27/2016 Visit Diagnosis Plan: Type 2 [...] : I10 07/02/2016 Appointment: Neela Hyman WPtel: [address] [place] [address] 07/01 rang and rang`sl FOLLOW UP 7 Patient Education: Patient Medication Summary Completed 07/02/2016 Patient Education: Patient Medication Summary Completed 06/27/2016 Care Plan: LIPID PANEL LOINC : 21771-3 Pending 06/27/2016 Care Plan: [place] : 79[address]-4 Pending 06/27/2016 Care Plan: A1C HPLC LOINC : 04657-6 Pending 06/27/2016 Visit Diagnosis Plan: Acute bronchitis, [...] ICD-10 : J20.9 06/14/2016 Appointment: Sammi Najera [address] [place], [place] [phone] FOLLOW UP 06/14/2016 Patient Education: Patient Medication [...] ICD-10 : J20.9 06/13/2016 Appointment: Sammi Najera [address] [place], [place] [phone] ACUTE ILLNESS 06/13/2016 Patient Education: Patient Medication Summary Completed 06/13/2016 Care Plan: CHEST X-RAY 2VW FRONTAL&LATL LOINC : 72131-5 Pending 06/13/2016 Visit Plan: Increase metoprolol to 100mg po BID BP readings and BP check in 1month 05/14/2016 Appointment: Neela Hyman WPtel: [address] [place] [address] 05/13 rang and rang`sl FOLLOW UP 6 Patient Education: Patient Medication Summary Completed 05/14/2016 Visit Plan: Increase metoprolol to 50mg BID BP check in 1 week f/u BP appt 2 weeks consider musculoskeletal if pain returns 04/29/2016 Appointment: Neela Hyman WPtel: [address] [place], [place] [phone] 04/25 confimred~sl FOLLOW UP 04/29/2016 Patient Education: Patient Medication Summary Completed 04/29/2016 Visit Plan: Stat CT scan of abdomen/pelv is to look for stone Hydrate and use tramadol prn Increase metoprolol to 25mg po BID Will see urology pending CT scan results 04/22/2016 Appointment: Neela Hyman WPtel: [address] [place] [address] 04/17 confirmed-sp ACUTE ILLNESS 04/22/2016 Patient Education: [...] flu shot 04/01/2016 Appointment: Neela Hyman WPtel: [address] [place], [place] [phone] [place] FOLLOW UP 04/01/2016 Patient Education: Patient Medication Summary Completed 04/01/2016 Patient Education: [facility][NOTE 3] - Saving AutoInj - 18-64 - Dynamic Heber l ID Completed 04/01/2016 Patient Education: Patient Medication Summary Completed 03/28/2016 Care Plan: A1C HPLC LOINC : 71547-3 Pending 03/28/2016 Care Plan: [place] : [address]-0 Pending 03/28/2016 Visit Plan: Lab discussed Continue curre nt meds Accuchecks daily 11/30/2015 Appointment: Neela Hyman WPtel: [address] [place] [id number] 11/28 confirmed~sl FOLLOW UP 11/30/2015 Patient Education: Patient Medication Summary Completed 11/30/2015 Appointment: Neela Hyman WPtel: [address] [place], [place] [phone] [place] RESCHEDULED 11/28/2015 Patient Education: Patient Medication Summary Completed 11/23/2015 Care Plan: COMPREH[place] : 97917-1 Pending 11/23/2015 Care Plan: LIPID PANEL LOINC : 65845-5 Pending 11/23/2015 Care Plan: CBC Pending 11/23/2015 Care Plan: A1C HPLC LOINC : 10325-7 Pending 11/23/2015 Visit Plan: Lab discussed Surinder munguia Continue current meds Cymbalta helping with feet and mood 08/29/2015 Appointment: Neela [facility]yman WPtel: [phone] [facility] [facility] FOLLOW UP 08/29/2015 Patient Education: Patient Medication Summary Completed 08/29/2015 Visit Plan: Check CXR Stop all steroids and steroid inhalers Use SVN with but change to duoneb Add singulair for allergy etiology Change fluoxetine to cymbalta 60mg daily Viagra samples given to try prn--warned of no nitrates 08/14/2015 Appointment: Neela Hyman WPtel: [phone] [facility] lm to reschedule ~sl 07/27 lm ~sl 08/09 busy 08/10 fer rosales-riley Annual Well Visit 08/14/2015 Patient Education: Patient Medication Summary Completed 08/14/2015 Care Plan: CHEST X-RAY 2VW FRONTAL&LATL LOINC : 11384-9 Ordered 08/14/2015 Visit Plan: Decadron 8mg given [...] improving as expected 08/09/2015 Appointment: Sammi [facility]ajera [facility] [facility] [facility] Follow UP 08/09/2015 Patient Education: Patient Medication Summary Completed 08/09/2015 Patient Education: [facility][NOTE 3] - Saving AutoInj - 18-64 - Dynamic [...] with it 05/22/2015 Appointment: Neela Hyman WPtel: [address] [place], [place] [phone] 05/17 confirmed~sl FOLLOW UP 05/22/2015 Patient Education: Patient Medication Summary Completed 05/22/2015 Patient Education: Patient Medication Summary Completed 05/15/2015 Visit Plan: Obtain EMGs done at [place] from when fractured left arm Lab discussed Accuchecks daily 02/13/2015 Appointment: Neela Hyman WPtel: [address] [place], [place] [phone] 02/10 confrimed FOLLOW UP 02/13/2015 Patient Education: Patient Medication Summary Completed 02/13/2015 Patient Education: Patient Medication Summary Completed 02/09/2015 Visit Plan: discussed lab add fenofibrat e 134mg po daily recheck fasting lab in 3 months, CBC, CMP, Lipids, hgb AIC 11/07/2014 Appointment: Neela Hyman WPtel: [address] [place], [place] [id number] 11/04 appt confirmed cn FOLLOW UP 015 Patient Education: Patient Medication Summary Completed 11/07/2014 Patient Education: Patient Medication Summary Completed 11/03/2014 Visit Plan: Continue loratadine 10mg richard ly Notify if symptoms return 10/04/2014 Appointment: Neela Hyman WPtel: [address] [place], [place] [phone] confirmed on 10/03 at 2:42pm FOLLOW UP 09/23 Patient Education: Patient Medication Summary Completed 10/04/2014 Appointment: Neela Hyman WPtel: [address] ACUTE ILLNESS 09/28/2014 Appointment: RodrigoVirajLoren WPtel: [address] [place] [address] FOLLOW UP 09/22/2014 Patient Education: Patient Medication Summary Completed 09/22/2014 Appointment: Loren Garza Delma WPtel: [address] [place] [address] ACUTE ILLNESS 09/21/2014 Patient Education: Patient Medication Summary Completed 09/21/2014 Patient Education: [facility] - Saving AutoInj - 18+ - Dynamic Portal ID Completed 09/21/2014 Visit Plan: Lab discussed Continue daily accuchecks Continue current meds 06/28/2014 Appointment: Neela Hyman WPtel: [address] [place] [address] FOLLOW UP 06/28/2014 Patient Education: Patient Medication Summary Completed 06/28/2014 Patient Education: Patient Medication Summary Completed 06/23/2014 Appointment: Sarah Sunshine WPtel: [address] [place] [address] ACUTE ILLNESS 06/10/2014 Patient Education: Patient Medication Summary Completed 06/10/2014 Patient Education: [facility] - Saving AutoInj - 18+ - Dynamic Portal ID Completed 06/10/2014 Visit Plan: Lab discussed Continue daily accuchecks Continue current meds 03/29/2014 Appointment: Neela Hyman WPtel: [address] [place], [place] [phone] FOLLOW UP 03/29/2014 Patient Education: Patient Medication Summary Completed 03/29/2014 Patient Education: Patient Medication Summary Completed 03/23/2014 Visit Plan: Lab discussed Continue curre nt meds and accuchecks See surgery for removal of hand lesion 11/30/2013 Appointment: Neela Hyman WPtel: [address] [place], [place] [phone] 11/29 no answer FOLLOW UP 11/30/2013 Patient Education: Patient Medication Summary Completed 11/30/2013 Visit Plan: Lab discussed Continue curre nt meds 08/03/2013 Appointment: Neela Hyman WPtel: [address] [place] [address] FOLLOW UP 08/03/2013 Patient Education: Patient Medication Summary Completed 08/03/2013 Visit Plan: Lab Discussed Will continue current meds and pt will get back on diet/exercise Check lab in 4mos and fwup 04/06/2013 Appointment: Neela Hyman WPtel: [address] [place] [address] FOLLOW UP 04/06/2013 Patient Education: Patient Medication Summary Completed 04/06/2013 Visit Plan: Lab discussed Continue daily accuchecks 12/01/2012 Appointment: Neela Hyman WPtel: [address] [place] [address] 11/30 no answer FOLLOW UP 12/01/2012 Patient Education: Patient Medication Summary Completed 12/01/2012 Visit Plan: Continue current meds and da russell accuchecks Lab discussed 08/04/2012 Appointment: Neela Hyman WPtel: [address] [place] [address] FOLLOW UP 08/04/2012 Patient Education: Patient Medication Summary Completed 08/04/2012 Appointment: Neela Hyman WPtel: [address] [place], [place] [phone] [facility] 06/01/2012 Patient Education: Patient Medication Summary Completed 06/01/2012 Appointment: Janet Jean Baptiste WPtel: [address] [place], [place] [phone] FOLLOW UP 05/29/2012 Patient Education: Patient Medication Summary Completed 05/29/2012 Visit Plan: pt states Dr. Hyman told h is to increase his Prozac dose while she was talking to her at [facility]. Discussed that pt. should not increase or decrease dosage without Dr's knowledge. Pt. will seek hearing test here in town at the hearing aid place on [address]. Discussed that ear pain is likely caused by sinus pressure. Pt. will notify if no improvement. 05/25/2012 Appointment: Janet Jean Baptiste WPtel: [address] [place], [place] [phone] ACUTE ILLNESS 05/25/2012 Patient Education: Patient Medication Summary Completed 05/25/2012 Visit Plan: Continue current meds Contin ue daily accuchecks but alternate times Increase fish oil to 3gm daily 04/07/2012 Appointment: Neela Hyman WPtel: [address] [place] [address] 04/06 FOLLOW UP 04/07/2012 Patient Education: Patient Medication Summary Completed 04/07/2012 Appointment: Janet Jean Baptiste WPtel: [address] [place] [address] ACUTE ILLNESS 12/16/2011 Patient Education: Patient Medication Summary Completed 12/16/2011 Visit Plan: Increase 12/03/2011 Appointment: Neela Hyman WPtel: [address] [place] [address] FOLLOW UP 12/03/2011 Patient Education: Patient Medication Summary Completed 12/03/2011 Visit Plan: Continue current meds Contin ue accuchecks 08/29/2011 Appointment: Neela Hyman WPtel: [address] [place], [place] [phone] FOLLOW UP 08/29/2011 Patient Education: Patient Medication Summary Completed 08/29/2011 Visit Plan: Continue current meds except restart zocor 05/30/2011 Appointment: Neela Hyman WPtel: [address] [place], [place] [phone] [place] FOLLOW UP 05/30/2011 Patient Education: Patient Medication Summary Completed 05/30/2011 Visit Plan: Continue tennis elbow strap May go back to weight-lifing--light weigts every other day 01/29/2011 Appointment: Neela Hyman WPtel: [address] [place], [place] [phone] [place] FOLLOW UP 01/29/2011 Patient Education: Patient Medication Summary Completed 01/29/2011 Visit Plan: Continue tennis elbow strap and anti-inflammatories 01/14/2011 Appointment: Neela Hyman WPtel: [address] [place], [place] [phone] FOLLOW UP 01/14/2011 Appointment: Janet Jean Baptiste WPtel: [address] [place] [address] NEW PATIENT 01/14/2011 Patient Education: Patient Medication Summary Completed 01/14/2011 Appointment: Nelea Hyman WPtel: [address] [place] [address] FOLLOW UP 01/08/2011 Appointment: Neela Hyman WPtel: [address] [place] [address] FOLLOW UP 01/01/2011 Appointment: Neela Hyman WPtel: [address] [place], [place] [phone] UA 01/01/2011 Patient Education: Patient Medication [...] given. 11/29/2010 Appointment: Janet Jean Baptiste WPtel: [address] [place], [place] [phone] ACUTE ILLNESS 11/29/2010 Patient Education: Patient Medication Summary Completed 11/29/2010 Visit Plan: Cont current meds Check CMP, Lipids, HbA1C 08/28/2010 Appointment: Neela Hyman WPtel: [address] [place], [place] [phone] FOLLOW UP 08/28/2010 Patient Education: Patient Medication Summary Completed 08/28/2010 Visit Plan: Cont current meds and accuch ecks Add Zocor 40mg q HS Check Lipids and HbA1C in 3mos 06/05/2010 Appointment: Neela Hyman WPtel: [address] [place], [place] [phone] [place] FOLLOW UP 06/05/2010 Patient Education: Patient Medication Summary Completed 06/05/2010 Visit Plan: Check Lipids and HbA1C 02/05/2010 Appointment: Neela Hyman WPtel: [address] [place], [place] [phone] [place] FOLLOW UP 02/05/2010 Patient Education: Patient Medication Summary Completed 02/05/2010 Visit Plan: HbA1C in 3mos. Continue Accu checks BID alternating times. Check HbA1C, CMP, Lipids 10/09/2009 Appointment: Neela Hyman WPtel: [address] [place], [place] [phone] [place] FOLLOW UP 10/09/2009 Patient Education: Patient Medication Summary Completed 10/09/2009 Visit Plan: Saline nasal flushes prn. Ty lenol/Motrin prn headache. Notify if persists/symptoms worsening. 08/22/2009 Appointment: Neela Hyman WPtel: [address] [place], [place] [phone] ACUTE ILLNESS 08/22/2009 Patient Education: Patient Medication Summary Completed 08/22/2009 Referral: Aubrey Rand WPtel: [address] [place], [place] [id number] [place] Office will verfy his insurance then they will contact patient Completed Referral: Shahbaz Brennan WPtel: [address] [facility] 201 [id number] [place] Referral Completed Referral: Ion Levi [address] [place] [address] C&D [id number] [place] Referral Appointment Requested Referral: Ion Levi [address] [place] [address] C&D [id number] [place] Referral Appointment Requested Instructions Comment . [...] with it . Obtain EMGs done at [place] from when fractured left arm Lab discussed [...] while she was talking to her at [facility]. Discussed that pt. should not increase or decrease dosage without Dr's knowledge. Pt. will seek hearing test here in town at the hearing aid place on [address]. Discussed that ear pain is likely caused [...]
--- OUTSIDE RECORDS SUMMARY | 2019-12-09 08:56 | XMS REPORT | CCD ---
Author Author Michael Hyman D.O. Organization [facility] Address [address] [place] [address] Phone Care Team Providers Care Merry Go Round Attendant Name Role Phone Neela Hyman D.O., PP Unavailable CCM Unavailable Summary Purpose Interface Exchange Insurance Providers Payer name Policy type / Coverage type Covered democrat ID Effective Begin Date Effective End Date ABS FOR [employer] Commercial Insurance [id number] Unknown Family History Family History data not found Social History Social History Element Codes Description Effective Dates Marital status Unknown 05/30/[address]: 4238897 Former smoker quit 25 years ago 01/01/2011 Allergies, Adverse Reactions, Alerts Substance Reaction Codes Entered Date Inactivated Date Status CODEINE Unknown 08/22/2009 No Inactive Date Active Problems Condition Codes Effective Dates Condition Status Chronic obstructive pulmonary disease, unspecified ICD -9: 496 ICD-10: J44.9 10/30/2016 Active Essential (primary) hypertension ICD-9: 401.9 ICD-10: I10 11/30/2013 Active Mixed hyperlipidemia ICD-9: 272.4 ICD-10: E78.2 11/30/2013 Active Type 2 diabetes mellitus with hyperglycemia [...] pain ICD-9: 789.09 ICD-10: R10.9 04/21/2016 Active Type 2 diabetes mellitus with diabetic neuropathy, uns pecified ICD-9: 250.60 ICD-10: E11.40 08/29/2015 Active Wheezing ICD-9: 786.07 ICD-10: R06.2 09/21/2014 [...] Start Date Stop Date Status Fill Instructions Zocor 40 mg tablet RxNorm: 463132 TAKE ONE TABLET BY M OUTH EVERY NIGHT AT BEDTIME 10/20/2019 04/16/2020 Active MagOx 400 mg (241.3 mg magnesium) tablet RxNorm: 649339 TAKE ONE TABLET BY MOUTH EVERY DAY 10/20/2019 04/16/2020 Active fenofibrate micronized 134 mg capsule RxNorm: 916780 1 Capsule( s) Oral QD 09/22/2019 03/20/2020 Active metformin 500 mg tablet RxNorm: 438670 2 Tablet(s) Oral two afshan es a day 09/22/2019 12/20/2019 Active Benicar 40 mg tablet RxNorm: 037962 1 Tablet(s) Oral QD 09/22/2019 Active Singulair 10 mg tablet RxNorm: 715795 TAKE ONE TABLET BY MOUTH EVERY EVENING 09/22/2019 03/20/2020 Active Reselected prescribe r from [facility] to [facility] Lasix 40 mg tablet RxNorm: 392584 1 Tablet(s) Oral QD 08/24/201910/25 Active duloxetine 60 mg capsule,delayed release RxNorm: 308602 TAKE ONE CAPSULE BY MOUTH EVERY DAY 08/16/2019 02/11/2020 Active metoprolol succinate ER 100 mg tablet,extended release 24 hr RxNorm: 894237 TAKE ONE TABLET BY MOUTH TWICE A DAY 08/16/2019 05/11/2020 Active potassium chloride ER 20 mEq tablet,extended release RxNorm: 578866 1 Tablet(s) Oral two times a day 07/22/2019 10/19/2019 Inactive metformin 500 mg tablet RxNorm: 813691 2 Tablet(s) Oral two afshan es a day 07/13/2019 09/21/2019 Inactive Keflex 500 mg capsule RxNorm: 418435 1 Capsule(s) Oral three ti mes a day 07/06/2019 07/13/2019 Inactive Singulair 10 mg tablet RxNorm: 023886 TAKE ONE TABLET BY MOUTH EVERY EVENING 07/06/2019 09/21/2019 Inactive Reselected prescribe r from [facility] to [facility] Singulair 10 mg tablet RxNorm: 419595 TAKE ONE TABLET BY MOUTH EVERY EVENING 06/22/2019 07/05/2019 Inactive Reselected prescribe r from [facility] to [facility] Zocor 40 mg tablet RxNorm: 917566 TAKE ONE TABLET BY M OUTH EVERY NIGHT AT BEDTIME 06/21/2019 10/19/2019 Inactive MagOx 400 mg (241.3 mg magnesium) tablet RxNorm: 700912 1 Table t(s) Oral QD 06/21/2019 08/20/2019 Inactive diltiazem ER 360 mg capsule,24 hr,extended release RxNorm: 8 57192 TAKE ONE CAPSULE BY MOUTH AT BEDTIME -REPLACES 300MG 05/17/2019 11/12/2019 Active MagOx 400 mg (241.3 mg magnesium) tablet RxNorm: 893699 1 Table t(s) Oral QD 04/26/2019 06/20/2019 Inactive Lasix 40 mg tablet RxNorm: 479856 40 MG PO DAILY 04/12/2019 08/23/2019 Inactive Benicar 40 mg tablet RxNorm: 232395 1 Tablet(s) Oral QD 03/29/2019 Inactive potassium chloride ER 20 mEq tablet,extended release RxNorm: 060240 1 Tablet(s) Oral two times a day 03/29/2019 06/27/2019 Inactive potassium chloride ER 20 mEq tablet,extended release RxNorm: 464571 1 Tablet(s) Oral QD 03/29/2019 03/28/2019 Inactive Benicar 40 mg tablet RxNorm: 446794 1 Tablet(s) Oral QD 03/29/2019 Inactive MagOx 400 mg (241.3 mg magnesium) tablet RxNorm: 534134 1 Table t(s) Oral QD 03/29/2019 04/25/2019 Inactive metformin 500 mg tablet RxNorm: 597150 2 Tablet(s) Oral two afshan es a day 03/29/2019 07/12/2019 Inactive fenofibrate micronized 134 mg capsule RxNorm: 821044 TA KE ONE CAPSULE BY MOUTH EVERY DAY 03/05/2019 09/21/2019 Inactive duloxetine 60 mg capsule,delayed release RxNorm: 339847 1 Capsu le(s) PO QD 01/28/2019 07/26/2019 Inactive Trelegy Ellipta 100 mcg-62.5 mcg-25 mcg powder for inhalatio n RxNorm: 8799122 1 Puff(s) INH QD 01/06/2019 12/31/2019 Active 90 day supply prednisone 20 mg tablet RxNorm: 388093 1 Tablet(s) PO T ID for 3 days then 1 po BID for 3 days then 1 po daily for 3 days 01/05/2019 03/28/2019 Inacti ve metformin ER 1,000 mg tablet,extended release 24hr RxNorm: 1 334897 TAKE TWO TABLETS (1000MG) BY MOUTH TWO TIMES A DAY 12/22/2018 07/13/2019 Inacti ve Diflucan 100 mg tablet RxNorm: 435282 1 Tablet(s) PO QD 12/09/2018 Inactive prednisone 20 mg tablet RxNorm: 561892 1 Tablet(s) PO B ID for 4 days then 1 po daily for 4 days 11/24/2018 01/04/2019 Inactive albuterol sulfate 2.5 mg/3 mL (0.083 %) solution for n ebulization RxNorm: 705102 3 Milliliter(s) INH ONE VIAL VIA NEBULIZER EVERY 4 HOURS 019 07/21/2019 Inactive [AttnRPh: Saving apply/adjudicate RxGRP: SG20 RxBIN:[id number] RxPCN: ID#:[id number]] Trelegy Ellipta 100 mcg-62.5 mcg-25 mcg powder for inhalatio n RxNorm: 0265548 1 Puff(s) INH QD 10/27/2018 01/06/2019 Inactive 90 day supply diltiazem ER 360 mg capsule,24 hr,extended release RxNorm: 8 87278 TAKE ONE CAPSULE BY MOUTH AT BEDTIME -REPLACES 300MG 10/13/2018 04/10/2019 Inactive metoprolol succinate ER 100 mg tablet,extended release 24 hr RxNorm: 470423 TAKE ONE TABLET BY MOUTH TWICE A DAY 10/13/2018 07/09/2019 Inactive Trelegy Ellipta 100 mcg-62.5 mcg-25 mcg powder for inhalatio n RxNorm: 4277398 INHALE ONE PUFF ONCE DAILY 09/07/2018 10/27/2018 Inactive Levaquin 750 mg tablet RxNorm: 515259 1 Tablet(s) PO QD 09/07/2018 Inactive Levaquin 750 mg tablet RxNorm: 988893 1 Tablet(s) PO QD 09/07/2018 Inactive prednisone 20 mg tablet RxNorm: 233007 2 Tablet(s) PO QAM 08/13/2018 08/19/2018 Inactive Levaquin 500 mg tablet RxNorm: 808062 1 Tablet(s) PO QD 08/11/2018 Inactive fenofibrate micronized 134 mg capsule RxNorm: 891472 TA KE ONE CAPSULE BY MOUTH EVERY DAY 08/10/2018 02/05/2019 Inactive prednisone 20 mg tablet RxNorm: 858626 1 Tablet(s) PO BID 07/16/2018 07/20/2018 Inactive doxycycline hyclate 100 mg capsule RxNorm: 7404427 1 Capsule(s) PO BID 07/13/2018 07/22/2018 Inactive duloxetine 60 mg capsule,delayed release RxNorm: 796817 TAKE ONE CAPSULE BY MOUTH ONCE A DAY 07/08/2018 01/28/2019 Inactive Lasix 40 mg tablet RxNorm: 648880 1 TABLET(S) PO QAM 06/08/201809/05 Inactive potassium chloride ER 20 mEq tablet,extended release(p art/cryst) RxNorm: 4656350 1 TABLET(S) PO QD 06/08/2018 09/05/2018 Inactive metformin ER 1,000 mg tablet,extended release 24hr RxNorm: 1 347743 TAKE TWO TABLETS (1000MG) BY MOUTH TWO TIMES A DAY 06/01/2018 11/27/2018 Inacti ve Benicar HCT 40 mg-25 mg tablet RxNorm: 078516 TAKE ONE TABLET BY MOUTH ONCE DAILY 05/11/2018 03/28/2019 Inactive Zocor 40 mg tablet RxNorm: 712839 TAKE ONE TABLET BY M OUTH EVERY NIGHT AT BEDTIME 05/11/2018 06/20/2019 Inactive Trelegy Ellipta 100 mcg-62.5 mcg-25 mcg powder for inhalatio n RxNorm: 6264335 1 PUFF(S) INH QD 04/06/2018 07/04/2018 Inactive diltiazem ER 360 mg capsule,24 hr,extended release RxNorm: 8 89965 1 Capsule(s) PO QHS replaces 300mg dose 03/30/2018 09/25/2018 Inactive Trelegy Ellipta 100 mcg-62.5 mcg-25 mcg powder for inhalatio n RxNorm: 7459227 1 Puff(s) INH QD 02/24/2018 02/23/2018 Inactive Trelegy Ellipta 100 mcg-62.5 mcg-25 mcg powder for inhalatio n RxNorm: 7970788 1 Puff(s) INH QD 02/24/2018 02/23/2018 Inactive Trelegy Ellipta 100 mcg-62.5 mcg-25 mcg powder for inhalatio n RxNorm: 7298249 1 Puff(s) INH QD 02/24/2018 04/05/2018 Inactive Lasix 40 mg tablet RxNorm: 414402 1 Tablet(s) PO QAM 02/10/201803/11 Inactive potassium chloride ER 20 mEq tablet,extended release(p art/cryst) RxNorm: 6394133 1 Tablet(s) PO QD 02/10/2018 03/11/2018 Inactive fenofibrate micronized 134 mg capsule RxNorm: 581586 1 Capsule( s) PO QD 01/30/2018 07/28/2018 Inactive metoprolol succinate ER 100 mg tablet,extended release 24 hr RxNorm: 868458 TAKE ONE TABLET BY MOUTH TWICE A DAY 12/30/2017 09/25/2018 Inactive metformin ER 1,000 mg tablet,extended release 24hr RxNorm: 1 289811 1 Tablet(s) PO BID 11/17/2017 05/15/2018 Inactive [SAVINGS FOR NON -COVERED DRUGS -- BIN:438072, PCN: ASPROD1, Group: XXXXX, ID# [id number], Questions: . THIS IS NOT INSURANCE.] Benicar HCT 40 mg-25 mg tablet RxNorm: 296465 1 Tablet(s) PO QD 05/10/2018 Inactive [SAVINGS FOR NON-COVERED JESU GS -- BIN:629536, PCN: ASPROD1, Group: XXXXX, ID# [id number], Questions: . THIS IS NOT INSURANCE.] Bactroban 2 % topical cream RxNorm: 966373 Application TOP BID 10/2409/02/2018 Inactive clindamycin HCl 300 mg capsule RxNorm: 325762 2 Capsule(s) PO TID 0 11/05/2017 11/18/2017 Inactive duloxetine 60 mg capsule,delayed release RxNorm: 744463 Capsule(s) TAKE ONE CAPSULE BY MOUTH ONCE DAILY 09/24/2017 09/23/2017 Inactive triamcinolone acetonide 0.1 % topical ointment RxNorm: 3713601 1 TOP BID 09/09/2017 11/04/2017 Inactive Bactrim DS 800 mg-160 mg tablet RxNorm: 386899 1 Tablet(s) PO BID 0 08/07/2017 08/13/2017 Inactive metronidazole 500 mg tablet RxNorm: 973369 1 Tablet(s) PO BID 08/0708/13/2017 Inactive diltiazem ER 360 mg capsule,24 hr,extended release RxNorm: 8 20514 1 Capsule(s) PO QHS replaces 300mg dose 08/04/2017 01/30/2018 Inactive fenofibrate micronized 134 mg capsule RxNorm: 634369 1 Capsule( s) PO QD 07/21/2017 01/30/2018 Inactive Zocor 40 mg tablet RxNorm: 075698 1 Tablet(s) PO QHS 07/21/201705/10 Inactive GB duloxetine 60 mg capsule,delayed release RxNorm: 348748 Capsule(s) TAKE ONE CAPSULE BY MOUTH ONCE DAILY 06/24/2017 09/24/2017 Inactive Cleocin HCl 300 mg capsule RxNorm: 887610 2 Capsule(s) PO BID 06/0206/08/2017 Inactive acyclovir 800 mg tablet RxNorm: 499914 1 Tablet(s) PO 5x day 201706/08/2017 Inactive diltiazem ER 300 mg capsule,24 hr,extended release RxNorm: 8 65046 1 Capsule(s) PO QHS replaces 240mg dose 05/05/2017 08/03/2017 Inactive ipratropium-albuterol 0.5 mg-3 mg(2.5 mg base)/3 mL ne bulization soln RxNorm: 5897989 1 Unit Dose INH Q4H as needed 05/05/2017 01/04/2019 Inactive metformin ER 1,000 mg tablet,extended release 24hr RxNorm: 1 720085 1 Tablet(s) PO BID 04/28/2017 11/17/2017 Inactive [SAVINGS FOR NON -COVERED DRUGS -- BIN:484427, PCN: ASPROD1, Group: XXXXX, ID# [id number], Questions: . THIS IS NOT INSURANCE.] diltiazem ER (XR/XT) 240 mg capsule,extended release 2 4 hr, controlled RxNorm: 041406 TAKE ONE CAPSULE BY MOUTH EVERY DAY 04/15/2017 05/04/2017 Inact avani prednisone 20 mg tablet RxNorm: 669791 1 Tablet(s) PO QD 04/10/2017 1 06/14/2016 Inactive Breo Ellipta 200 mcg-25 mcg/dose powder for inhalation RxNor m: 2384043 1 Puff(s) INH QD 04/10/2017 02/09/2018 Inactive Breo Ellipta 200 mcg-25 mcg/dose powder for inhalation RxNor m: 1706814 1 Puff(s) INH QD 04/10/2017 04/09/2017 Inactive Levaquin 500 mg tablet RxNorm: 464411 1 Tablet(s) PO QD 04/10/2017 Inactive metoprolol succinate ER 100 mg tablet,extended release 24 hr RxNorm: 977249 TAKE ONE TABLET BY MOUTH TWICE A DAY 03/24/2017 12/18/2017 Inactive fenofibrate micronized 134 mg capsule RxNorm: 504353 1 Capsule( s) PO QD 01/16/2017 07/21/2017 Inactive Benicar HCT 40 mg-25 mg tablet RxNorm: 943026 1 Tablet(s) PO QD 11/17/2017 Inactive [SAVINGS FOR NON-COVERED JESU GS -- BIN:528953, PCN: ASPROD1, Group: XXXXX, ID# [id number], Questions: . THIS IS NOT INSURANCE.] metoprolol succinate ER 100 mg tablet,extended release 24 hr RxNorm: 610861 1 Tablet(s) PO BID 10/16/2016 03/23/2017 Inactive diltiazem ER (XR/XT) 240 mg capsule,extended release 2 4 hr, controlled RxNorm: 394686 1 Capsule(s) PO QD 10/16/2016 04/13/2017 Inactive [SAVINGS FOR NON- COVERED DRUGS -- BIN:817975, PCN: ASPROD1, Group: XXXXX, ID# XXXXXXX, Questions: . THIS IS NOT INSURANCE.] metformin ER 1,000 mg tablet,extended release 24hr RxNorm: 8 24202 1 Tablet(s) PO BID 10/16/2016 04/28/2017 Inactive [SAVINGS FOR NON -COVERED DRUGS -- BIN:879449, PCN: ASPROD1, Group: XXXXX, ID# [id number], Questions: . THIS IS NOT INSURANCE.] Zocor 40 mg tablet RxNorm: 281487 1 Tablet(s) PO QHS 10/16/201607/21 Inactive GB Singulair 10 mg tablet RxNorm: 036657 Tablet(s) 1 TABLET(S) PO QHS 08/27/2016 09/02/2018 Inactive prednisone 20 mg tablet RxNorm: 320343 1 Tablet(s) PO QD 08/27/2016 0 08/31/2016 Inactive ipratropium-albuterol 0.5 mg-3 mg(2.5 mg base)/3 mL ne bulization soln RxNorm: 7079249 1 Unit Dose INH Q4H as needed 08/27/2016 05/04/2017 Inactive metoprolol succinate ER 100 mg tablet,extended release 24 hr RxNorm: 263652 TAKE ONE TABLET BY MOUTH TWICE A DAY 08/05/2016 10/16/2016 Inactive duloxetine 60 mg capsule,delayed release RxNorm: 329830 TAKE ONE CAPSULE BY MOUTH ONCE DAILY 08/05/2016 06/24/2017 Inactive prednisone 20 mg tablet RxNorm: 636004 1 Tablet(s) PO QD 06/14/2016 0 06/18/2016 Inactive ipratropium-albuterol 0.5 mg-3 mg(2.5 mg base)/3 mL ne bulization soln RxNorm: 1572795 1 Unit Dose INH Q4H as needed 06/13/2016 08/26/2016 Inactive Levaquin 500 mg tablet RxNorm: 074372 1 Tablet(s) PO QD 06/13/2016 Inactive metoprolol succinate ER 100 mg tablet,extended release 24 hr RxNorm: 712095 1 Tablet(s) PO BID replaces 50mg dose 05/14/2016 07/12/2016 Inactive metoprolol succinate ER 50 mg tablet,extended release 24 hr RxNorm: 809085 1 Tablet(s) PO BID 04/29/2016 05/13/2016 Inactive prednisone 20 mg tablet RxNorm: 241767 1 Tablet(s) PO BID 04/22/2016 04/21/2016 Inactive prednisone 20 mg tablet RxNorm: 867039 1 Tablet(s) PO BID 04/22/2016 04/28/2016 Inactive Singulair 10 mg tablet RxNorm: 252925 Tablet(s) 1 TABLET(S) PO QHS 04/01/2016 08/26/2016 Inactive metoprolol succinate ER 25 mg tablet,extended release 24 hr RxNorm: 265560 1 Tablet(s) PO QHS for blood pressure 04/01/2016 05/13/2016 Inactive fenofibrate micronized 134 mg capsule RxNorm: 740615 TA KE ONE CAPSULE BY MOUTH DAILY 01/25/2016 01/16/2017 Inactive duloxetine 60 mg capsule,delayed release RxNorm: 027780 TAKE ONE CAPSULE BY MOUTH ONCE DAILY 01/25/2016 08/04/2016 Inactive Zocor 40 mg tablet RxNorm: 859386 TAKE ONE TABLET BY MOUTH AT B EDTIME 11/13/2015 10/16/2016 Inactive GB metformin ER 1,000 mg tablet,extended release 24hr RxNorm: 8 84892 1 Tablet(s) PO BID 10/26/2015 10/16/2016 Inactive [SAVINGS FOR NON -COVERED DRUGS -- BIN:005964, PCN: ASPROD1, Group: XXXXX, ID# [id number], Questions: . THIS IS NOT INSURANCE.] Benicar HCT 40 mg-25 mg tablet RxNorm: 915669 1 Tablet(s) PO QD 06/201511/11/2016 Inactive [SAVINGS FOR NON-COVERED JESU GS -- BIN:598409, PCN: ASPROD1, Group: XXXXX, ID# [id number], Questions: . THIS IS NOT INSURANCE.] diltiazem ER (XR/XT) 240 mg capsule,extended release,control led RxNorm: 989655 1 Capsule(s) PO QD 10/26/2015 10/15/2016 Inactive [SAVINGS FOR NO N-COVERED DRUGS -- BIN:172189, PCN: ASPROD1, Group: XXXXX, ID# [id number], Questions: . THIS IS NOT INSURANCE.] Singulair 10 mg tablet RxNorm: 363423 1 TABLET(S) PO QHS 09/18/2015 1 05/31/2015 Inactive Viagra 100 mg tablet RxNorm: 862837 1 Tablet(s) PO as needed 201511/23/2018 Inactive Singulair 10 mg tablet RxNorm: 695072 1 Tablet(s) PO QHS 08/16/2015 0 08/15/2015 Inactive Singulair 10 mg tablet RxNorm: 333125 1 Tablet(s) PO QHS 08/16/2015 0 09/14/2015 Inactive duloxetine 60 mg capsule,delayed release RxNorm: 140016 1 Capsule(s) PO QD replaces fluoxetine 08/14/2015 01/24/2016 Inactive ipratropium-albuterol 0.5 mg-3 mg(2.5 mg base)/3 mL ne bulization soln RxNorm: 5068753 1 Unit Dose INH Q4H as needed 08/14/2015 06/12/2016 Inactive prednisone 20 mg tablet RxNorm: 146008 Take 3 tabs PO o nce daily x 3 days, then 2 tabs PO once daily x 3 days and then 1 tab PO once daily x 3 days 08/09/2015 08/13/2015 Inactive Symbicort 160 mcg-4.5 mcg/actuation HFA aerosol inhaler RxNo rm: 2309049 2 Puff(s) INH BID 08/09/2015 08/13/2015 Inactive Zocor 40 mg tablet RxNorm: 872592 1 Tablet(s) PO QHS 05/23/201511/11 Inactive [AttnRPh: Saving apply/adjudicate RxGRP: SG20 RxBIN:[id number] RxPCN: ID#:[id number]] Benicar HCT 40 mg-25 mg tablet RxNorm: 861618 1 Tablet(s) PO QD 10/26/2015 Inactive [SAVINGS FOR NON-COVERED JESU GS -- BIN:003907, PCN: ASPROD1, Group: XXXXX, ID# XXXXXXX, Questions: . THIS IS NOT INSURANCE.] diltiazem ER (XR/XT) 240 mg capsule,extended release,control led RxNorm: 082223 1 Capsule(s) PO QD 04/24/2015 10/20/2015 Inactive [SAVINGS FOR NO N-COVERED DRUGS -- BIN:132925, PCN: ASPROD1, Group: XXXXX, ID# XXXXXXX, Questions: . THIS IS NOT INSURANCE.] fluoxetine 40 mg capsule RxNorm: 609512 1 Capsule(s) PO QD 04/24/20 15 08/13/2015 Inactive [SAVINGS FOR NON-COVERED JESU GS -- BIN:505836, PCN: ASPROD1, Group: XXXXX, ID# [id number], Questions: . THIS IS NOT INSURANCE.] Zocor 40 mg tablet RxNorm: 242472 TABLET(S) 1 TABLET(S) PO QHS 01/2505/23/2015 Inactive [AttnRPh: Saving apply/adjud icate RxGRP:SG20 RxBIN:[id number] RxPCN:HT ID#:[id number]] metformin ER 1,000 mg tablet,extended release 24hr RxNorm: 8 05970 1 TABLET(S) PO BID 01/29/2015 10/26/2015 Inactive [SAVINGS FOR NON -COVERED DRUGS -- BIN:947013, PCN: ASPROD1, Group: XXXXX, ID# XXXXXXX, Questions: . THIS IS NOT INSURANCE.] fenofibrate micronized 134 mg capsule RxNorm: 785669 1 CAPSULE( S) PO QD 01/23/2015 01/17/2016 Inactive fenofibrate micronized 134 mg capsule RxNorm: 532390 1 Capsule( s) PO QD 11/07/2014 01/22/2015 Inactive diltiazem ER (XR/XT) 240 mg capsule,extended release,control led RxNorm: 631662 1 Capsule(s) PO QD 10/24/2014 04/24/2015 Inactive [SAVINGS FOR NO N-COVERED DRUGS -- BIN:232619, PCN: ASPROD1, Group: XXXXX, ID# XXXXXXX, Questions: . THIS IS NOT INSURANCE.] Benicar HCT 40 mg-25 mg tablet RxNorm: 302747 1 Tablet(s) PO QD 05/201404/24/2015 Inactive [SAVINGS FOR NON-COVERED JESU GS -- BIN:339981, PCN: ASPROD1, Group: XXXXX, ID# XXXXXXX, Questions: . THIS IS NOT INSURANCE.] fluoxetine 40 mg capsule RxNorm: 754947 1 Capsule(s) PO QD 10/25/19 15 04/24/2015 Inactive [SAVINGS FOR NON-COVERED JESU GS -- BIN:463662, PCN: ASPROD1, Group: XXXXX, ID# [id number], Questions: . THIS IS NOT INSURANCE.] azithromycin 500 mg tablet RxNorm: 376910 1 Tablet(s) PO QD 015 09/27/2014 Inactive [SAVINGS FOR NON-COVERED JESU GS -- BIN:805494, PCN: ASPROD1, Group: XXXXX, ID# XXXXXXX, Questions: . THIS IS NOT INSURANCE.] albuterol sulfate 2.5 mg/3 mL (0.083 %) solution for n ebulization RxNorm: 630142 3 Milliliter(s) INH ONE VIAL VIA NEBULIZER EVERY 4 HOURS 015 11/19/2014 Inactive [AttnRPh: Saving apply/adjudicate RxGRP: SG20 RxBIN:[id number] RxPCN: ID#:[id number]] Zocor 40 mg tablet RxNorm: 340747 TABLET(S) 1 TABLET(S ) PO QHS 1 TABLET(S) PO QHS 09/04/2014 02/21/2015 Inactive [AttnRPh: Saving apply/adjudicate RxGRP:SG20 RxBIN:[id number] RxPCN: ID#:[id number]] metformin ER 1,000 mg tablet,extended release 24hr RxNorm: 8 84784 1 Tablet(s) PO BID 08/04/2014 01/28/2015 Inactive [SAVINGS FOR NON -COVERED DRUGS -- BIN:008470, PCN: ASPROD1, Group: XXXXX, ID# XXXXXXX, Questions: . THIS IS NOT INSURANCE.] Bromfed DM 2 mg-30 mg-10 mg/5 mL syrup RxNorm: 1120209 1 -2 Teaspoon(s) PO Q4H as needed for cough 06/10/2014 06/19/2014 Inactive [SAVINGS FOR UN INSURED PATIENTS -- BIN:188493, PCN: ASPROD1, Group: AME08, ID# [id number], Process claim through [employer], for questions: . THIS IS NOT INSURANCE.] Augmentin 875 mg-125 mg tablet RxNorm: 244760 1 Tablet(s) PO Q12H 0 06/10/2014 06/19/2014 Inactive [AttnRPh: Saving apply/adjud icate RxGRP:SG20 RxBIN:[id number] RxPCN:HT ID#:[id number]] Zocor 40 mg tablet RxNorm: 230432 Tablet(s) 1 TABLET(S ) PO QHS 1 TABLET(S) PO QHS 05/25/2014 08/22/2014 Inactive [AttnRPh: Saving apply/adjudicate RxGRP:SG20 RxBIN:[id number] RxPCN:HT ID#:[id number]] fluoxetine 40 mg capsule RxNorm: 730768 1 Capsule(s) PO QD 04/29/20 14 10/24/2014 Inactive [AttnRPh: Saving apply/adjud icate RxGRP:SG20 RxBIN:[id number] RxPCN:HT ID#:[id number]] diltiazem ER (XR/XT) 240 mg capsule,extended release,control led RxNorm: 738297 1 Capsule(s) PO QD 04/29/2014 10/24/2014 Inactive [AttnRPh: Leonelin g apply/adjudicate RxGRP:SG20 RxBIN:[id number] RxPCN:HT ID#:[id number]] Benicar HCT 40 mg-25 mg tablet RxNorm: 386295 1 Tablet(s) PO QD 09/201310/24/2014 Inactive [AttnRPh: Saving apply/adjud icate RxGRP:SG20 RxBIN:[id number] RxPCN:HT ID#:[id number]] Zocor 40 mg tablet RxNorm: 813866 1 TABLET(S) PO QHS 1 TABLET(S ) PO QHS 03/07/2014 05/25/2014 Inactive [AttnRPh: Saving chelsie ly/adjudicate RxGRP:SG20 RxBIN:[id number] RxPCN:HT ID#:[id number]] Zocor 40 mg tablet RxNorm: 137742 1 Tablet(s) PO QHS 1 TABLET(S ) PO QHS 12/06/2013 03/05/2014 Inactive [AttnRPh: Saving chelsie ly/adjudicate RxGRP:SG20 RxBIN:[id number] RxPCN:HT ID#:[id number]] diltiazem ER (XR/XT) 240 mg capsule,extended release,control led RxNorm: 830411 1 Capsule(s) PO QD 10/25/2013 04/22/2014 Inactive [AttnRPh: Savin g apply/adjudicate RxGRP:SG20 RxBIN:[id number] RxPCN:HT ID#:[id number]] fluoxetine 40 mg capsule RxNorm: 642378 1 Capsule(s) PO QD 10/26/1904/22/2014 Inactive [AttnRPh: Saving apply/adjud icate RxGRP:SG20 RxBIN:[id number] RxPCN:HT ID#:[id number]] Zocor 40 mg tablet RxNorm: 231759 1 Tablet(s) PO QHS 1 TABLET(S ) PO QHS 09/13/2013 12/06/2013 Inactive metformin ER 1,000 mg tablet,extended release 24hr RxNorm: 8 25703 Tablet(s) PO TAKE 1 TABLET BY MOUTH TWICE DAILY (REPLACES 500MG DOSE) 07/26/201303/2015 Inactive diltiazem ER (XR/XT) 240 mg capsule,extended release,control led RxNorm: 086831 1 Capsule(s) PO QD 05/03/2013 10/25/2013 Inactive fluoxetine 40 mg capsule RxNorm: 017046 1 Capsule(s) PO QD 05/03/20 13 10/25/2013 Inactive Benicar HCT 40 mg-25 mg tablet RxNorm: 630080 1 Tablet(s) PO QD 01/201304/29/2014 Inactive Zocor 40 mg tablet RxNorm: 528139 1 Tablet(s) PO QHS 12/10/201209/13 Inactive fluoxetine 40 mg capsule RxNorm: 600091 1 Capsule(s) PO QD 11/10/19 13 05/03/2013 Inactive diltiazem ER (XR/XT) 240 mg capsule,extended release,control led RxNorm: 826384 1 Capsule(s) PO QD 11/09/2012 05/03/2013 Inactive Benicar HCT 40 mg-25 mg tablet RxNorm: 252264 1 Tablet(s) PO QD 05/03/2013 Inactive metformin ER 1,000 mg tablet,extended release 24hr RxNorm: 8 72566 Tablet(s) PO TAKE 1 TABLET BY MOUTH TWICE DAILY (REPLACES 500MG DOSE) 08/05/201206/2013 Inactive Zocor 40 mg tablet RxNorm: 575924 1 Tablet(s) PO QHS 06/15/201212/09 Inactive fluoxetine 40 mg capsule RxNorm: 885780 1 Capsule(s) PO QD 05/15/2011/08/2012 Inactive Neurontin 600 mg Tab RxNorm: 380300 1 Tablet(s) PO QHS 12/03/2011 Inactive metformin ER 1,000 mg tablet,extended release 24hr RxNorm: 8 30810 1 Tablet(s) PO BID replaces 500mg dose 12/03/2011 07/26/2013 Inactive Zocor 40 mg tablet RxNorm: 640175 1 Tablet(s) PO QHS 12/03/201106/15 Inactive fluoxetine 20 mg capsule RxNorm: 399094 1 Capsule(s) PO QD 12/03/19 12 05/24/2012 Inactive diltiazem ER (XR/XT) 240 mg capsule,extended release,control led RxNorm: 667008 1 Capsule(s) PO QD 11/15/2011 11/09/2012 Inactive Benicar HCT 40 mg-25 mg tablet RxNorm: 339990 1 Tablet(s) PO QD 02/16/2012 Inactive metformin ER 500 mg 24 hr Tab RxNorm: 674230 1 Tablet(s) PO BID 12/02/2011 Inactive Zocor 40 mg Tab RxNorm: 254455 1 Tablet(s) PO QHS 05/30/2011 11/25/19 12 Inactive fluoxetine 20 mg Cap RxNorm: 734126 1 Capsule(s) PO QD 05/28/2011 Inactive Neurontin 600 mg Tab RxNorm: 549035 1 Tablet(s) PO QHS 05/28/2011 Inactive Neurontin 600 mg Tab RxNorm: 092605 1 Tablet(s) PO QHS 02/22/201106/2011 Inactive Neurontin 600 mg Tab RxNorm: 237666 1 Tablet(s) PO QHS 01/14/2011 Inactive Neurontin 300 mg Cap RxNorm: 778227 1 Capsule(s) PO QHS 01/14/2011 Inactive Neurontin 600 mg Tab RxNorm: 224803 1 Tablet(s) PO QHS 01/14/2011 Inactive Medrol (Vipul) 4 mg Tabs in a Dose Pack RxNorm: 506413 Tablet(s) PO 0 01/02/2011 08/28/2011 Inactive as directed fluoxetine 20 mg Cap RxNorm: 804549 1 Capsule(s) PO QD 12/10/201006/2011 Inactive Zocor 40 mg Tab RxNorm: 628588 1 Tablet(s) PO QHS 12/03/2010 05/29/19 12 Inactive Neurontin 300 mg Cap RxNorm: 124018 1 Capsule(s) PO QHS 12/03/2010 Inactive Septra DS 800 mg-160 mg Tab RxNorm: 494683 1 Tablet(s) PO BID 11/2912/08/2010 Inactive diltiazem ER (XR/XT) 240 mg Continuous Release Cap RxNorm: 8 75341 1 Capsule(s) PO QD 11/20/2010 11/15/2011 Inactive Neurontin 300 mg Cap RxNorm: 644686 1 Capsule(s) PO QHS 11/06/2010 Inactive Neurontin 300 mg Cap RxNorm: 976967 1 Capsule(s) PO QHS 11/06/2010 Inactive Celebrex 200 mg Cap RxNorm: 819256 1 Capsule(s) PO BID 10/24/2010 Inactive fluoxetine 20 mg Cap RxNorm: 428213 1 Capsule(s) PO QD 06/07/201003/2011 Inactive Zocor 40 mg Tab RxNorm: 966477 1 Tablet(s) PO QHS 06/05/2010 12/02/19 11 Inactive Benicar HCT 40 mg-25 mg Tab RxNorm: 155187 1 Tablet(s) PO QD 200908/21/2011 Inactive Diltiazem 240 mg Continuous Release Cap RxNorm: 833352 1 Capsul e(s) PO QD 11/09/2009 09/02/2018 Inactive Avelox 400 mg Tab RxNorm: 877349 1 Tablet(s) PO QD 08/22/2009 010 Inactive ProAir HFA 90 mcg/actuation aerosol inhaler RxNorm: 549203 2 Puff(s) INH Q4H as needed No Start Date Active tramadol 50 mg tablet RxNorm: 348767 1-2 Tablet(s) PO TID as ne eded for pain No Start Date Active Tylenol Arthritis 650 mg Tab RxNorm: 2765152 2 Tablet(s) PO QD No Sta rt Date Active Celebrex 200 mg Cap RxNorm: 192292 1 Capsule(s) PO BID No Start Date 08/08/2015 Inactive Medrol (Vipul) 4 mg Tabs in a Dose Pack RxNorm: 872101 Tablet(s) PO N o Start Date 01/01/2011 Inactive as directed Promethazine-DM 6.25 mg-15 mg/5 mL Syrup RxNorm: 176746 1-2 Teaspoon(s) PO Q4H prn cough No Start Date 08/28/2011 Inactive Claritin 10 mg tablet RxNorm: 147980 1 Tablet(s) PO QD No Start Date 08/08/2015 Inactive Ozwtvgecqk-Sfzhb-RXB-James-115HC Oral RxNorm: Oral No Start Da te 03/28/2019 Inactive Breo Ellipta 200 mcg-25 mcg/dose powder for inhalation RxNor m: 5823860 1 Puff(s) INH QD No Start Date 04/09/2017 Inactive metformin 500 mg Tab RxNorm: 995087 1 Tablet(s) PO QD No Start Date 0 08/17/2011 Inactive Diltiazem 240 mg Continuous Release Cap RxNorm: 971015 1 Capsul e(s) PO BID No Start Date 11/08/2009 Inactive fluoxetine 20 mg Cap RxNorm: 515222 1 Capsule(s) PO QD No Start Date 06/07/2010 Inactive Multivitamin & Mineral Formula Oral RxNorm: Oral No Start Da te 03/28/2019 Inactive Medrol (Vipul) 4 mg tablets in a dose pack RxNorm: 573664 Tablet(s) PO as directed No Start Date 05/28/2012 Inactive Fish Oil 1,000 mg Cap RxNorm: 1 Capsule(s) PO QD No Start Date 07/2018 Inactive Nexium 40 mg Cap RxNorm: 872293 1 Capsule(s) PO QD No Start Date 07/24 Inactive fluticasone 50 mcg/actuation nasal spray,suspension RxNorm: 7751715 2 [place] NASAL QD to each nostril No Start Date 08/03/2017 Inactive Viagra 100 mg tablet RxNorm: 157907 1 Tablet(s) PO as needed No Sta rt Date 09/17/2015 Inactive prednisone 20 mg tablet RxNorm: 399134 1 Tablet(s) PO B ID for 4 days then 1 po daily for 4 days No Start Date 11/23/2018 Inactive Benicar HCT 40 mg-25 mg Tab RxNorm: 039895 1 Tablet(s) PO QD No Sta rt [...] Date S ervice Location MICROALBUMIN URINE RANDOM 12585 MICRL MG/L 5.8 MG/L 03/2011 Unknown MICROALBUMIN URINE RANDOM 98437 XM.ALB/CRE 5.2 MG/GCR Unknown MICROALBUMIN URINE RANDOM 38050 CREAT MG/D 111 MG/DL 03/2011 Unknown MICROALBUMIN URINE RANDOM 88079 CRE/100 1.11 G/L 12/24 Unknown Procedures Procedure Codes Date FLU VACC PRSV FREE INC ANTIG 65 AND OLDER CPT-4: 81668 03/04/2019 ADMIN PNEUMOCOCCAL VACCINE CPT-4: G0009 03/04/2019 ADMIN INFLUENZA VIRUS VAC CPT-4: G0008 03/04/2019 FLU VACC PRSV FREE INC ANTIG 65 AND OLDER CPT-4: 52192 03/04/2019 PNEUMOCOCCAL VACC 23 R[facility]MON IM CPT-4: 81091 03/04/2019 THER/PROPH/DIAG INJ SC/IM CPT-4: 47563 08/11/2018 TRIAMCINOLONE ACET INJ NOS CPT-4: J3301 08/11/2018 DEXAMETHASONE SODIUM PHOS CPT-4: J1100 08/11/2018 THER/PROPH/DIAG INJ SC/IM CPT-4: 19082 07/16/2018 METHYLPREDNISOLONE INJECTION CPT-4: J2930 07/16/2018 INFLUENZA ASSAY W/OPTIC CPT-4: 39222 07/16/2018 THER/PROPH/DIAG INJ SC/IM CPT-4: 99458 07/13/2018 TRIAMCINOLONE ACET INJ NOS CPT-4: J3301 07/13/2018 THER/PROPH/DIAG INJ SC/IM CPT-4: 60271 05/04/2018 METHYLPREDNISOLONE INJECTION CPT-4: J2930 05/04/2018 FLU VACC PRSV FREE INC ANTIG 65 AND OLDER CPT-4: 83554 02/10/2018 PNEUMOCOCCAL VACC 13 [facility] IM CPT-4: 15415 02/10/2018 ADMIN INFLUENZA VIRUS VAC CPT-4: G0008 02/10/2018 ADMIN PNEUMOCOCCAL VACCINE CPT-4: G0009 02/10/2018 THER/PROPH/DIAG INJ SC/IM CPT-4: 44305 09/09/2017 TRIAMCINOLONE ACET INJ NOS CPT-4: J3301 09/09/2017 ALBUTEROL NON-COMP UNIT CPT-4: J7613 04/10/2017 AIRWAY INHALATION TREATMENT CPT-4: 55246 04/10/2017 PRESCRIP TRANSMIT VIA ERX SY CPT-4: G8553 04/10/2017 FLU VACC PRSV FREE INC ANTIG 65 AND OLDER CPT-4: 58409 03/28/2017 ADMIN INFLUENZA VIRUS VAC CPT-4: G0008 03/28/2017 PRESCRIP TRANSMIT VIA ERX SY CPT-4: G8553 08/27/2016 PRESCRIP TRANSMIT VIA ERX SY CPT-4: G8553 06/14/2016 ALBUTEROL NON-COMP UNIT CPT-4: J7613 06/13/2016 AIRWAY INHALATION TREATMENT CPT-4: 47693 06/13/2016 PRESCRIP TRANSMIT VIA ERX SY CPT-4: [...] CPT-4: G8553 11/07/2014 THER/PROPH/DIAG INJ SC/IM CPT-4: 39582 09/21/2014 METHYLPREDNISOLONE INJECTION CPT-4: J2930 09/21/2014 PRESCRIP TRANSMIT VIA ERX SY CPT-4: G8553 09/21/2014 PRESCRIP TRANSMIT VIA ERX SY CPT-4: G8553 06/10/2014 URINALYSIS NONAUTO W/O SCOPE CPT-4: 35297 06/01/2012 PRESCRIP TRANSMIT VIA ERX SY CPT-4: G8553 05/25/2012 PRESCRIP TRANSMIT VIA ERX SY CPT-4: G8553 12/03/2011 CUR TOBACCO NON-USER CPT-4: G8457 05/30/2011 PRESCRIP TRANSMIT VIA ERX SY CPT-4: G8553 05/30/2011 URINALYSIS NONAUTO W/O SCOPE CPT-4: 17298 01/01/2011 URINE CULTURE/ COLONY COUNT CPT-4: 44874 01/01/2011 CUR TOBACCO NON-USER CPT-4: G8457 01/01/2011 PRESCRIP TRANSMIT VIA ERX SY CPT-4: G8553 11/29/2010 PRESCRIP TRANSMIT VIA ERX SY CPT-4: G8553 06/05/2010 Vital Signs Date Vital 08/30/2019 Blood Pressure 1: 150/82 Code: 8480-6 [...] 1: 114/68 Code: 8480-6 BMI: 43.5 Code: 49758-4 Heart Rate 1: 52 bpm Height: 6'1" [...] 1: 136/72 Code: 8480-6 BMI: 42.7 Code: 18760-0 Heart Rate 1: 60 bpm Height: 6'1" Respiratory Rate: 22 bpm SpO2: 95% Tempera ture: 37.1 (C) / 98.7 (F) Weight: 324 lbs 02/10/2018 Blood Pressure 1: 146/78 Code: 8480-6 BMI: 42.4 Code: 20350-0 Heart Rate 1: 64 bpm Height: 6'1" Respiratory Rate: 22 bpm SpO2: 95% Tempera ture: 36.5 (C) / 97.7 (F) Weight: 321 lbs 11/05/2017 Blood Pressure 1: 128/84 Code: 8480-6 BMI: 42.9 Code: 54762-2 Heart Rate 1: 52 bpm Height: 6'1" Respiratory Rate: 22 bpm SpO2: 95% Tempera ture: 36.3 (C) / 97.3 (F) Weight: 325 lbs 09/09/2017 Blood Pressure 1: 162/90 Code: 8480-6 BMI: 42.5 Code: 28807-1 Heart Rate 1: 60 bpm Height: 6'1" Respiratory Rate: 24 bpm SpO2: 95% Tempera ture: 36.4 (C) / 97.6 (F) Weight: 322 lbs 08/07/2017 Blood Pressure 1: 152/90 Code: 8480-6 BMI: 42.2 Code: 56960-8 Heart Rate 1: 60 bpm Height: 6'1" Respiratory Rate: 26 bpm SpO2: 94% Tempera ture: 36.6 (C) / 97.8 (F) Weight: 320 lbs 08/04/2017 Blood Pressure 1: 150/86 Code: 8480-6 BMI: 42.7 Code: 99777-9 Heart Rate 1: 64 bpm Height: 6'1" Respiratory Rate: 20 bpm SpO2: 94% Tempera ture: 36.3 (C) / 97.3 (F) Weight: 324 lbs 06/04/2017 Blood Pressure 1: 164/90 Code: 8480-6 Heart Rate 1: 60 bpm Respiratory Rate: 24 bpm SpO2: 94% Temperature: 36.8 (C) / 98.3 (F) 06/02/2017 Blood Pressure 1: 162/80 Code: 8480-6 BMI: 42.9 Code: 72187-5 Heart Rate 1: 66 bpm Height: 6'1" Respiratory Rate: 22 bpm SpO2: 98% Tempera ture: 36.6 (C) / 97.8 (F) Weight: 325 lbs 05/05/2017 Blood Pressure 1: 164/94 Code: 8480-6 BMI: 41.4 Code: 49135-8 Heart Rate 1: 64 bpm Height: 6'1" Respiratory Rate: 22 bpm SpO2: 95% Tempera ture: 36.4 (C) / 97.5 (F) Weight: 314 lbs 04/10/2017 Blood Pressure 1: 136/78 Code: 8480-6 BMI: 42.0 Code: 91644-2 Heart Rate 1: 76 bpm Height: 6'1" Respiratory Rate: 24 bpm SpO2: 92% Tempera ture: 35.9 (C) / 96.7 (F) Weight: 318 lbs 02/03/2017 Blood Pressure 1: 134/82 Code: 8480-6 BMI: 41.7 Code: 07087-5 Heart Rate 1: 72 bpm Height: 6'1" Respiratory Rate: 24 bpm SpO2: 95% Tempera ture: 36.1 (C) / 97.0 (F) Weight: 316 lbs 10/30/2016 Blood Pressure 1: 126/74 Code: 8480-6 BMI: 41.3 Code: 12740-4 Heart Rate 1: 68 bpm Height: 6'1" Respiratory Rate: 20 bpm Temperature: 37 .1 (C) / 98.8 (F) Weight: 313 lbs 08/30/2016 Blood Pressure 1: 146/80 Code: 8480-6 BMI: 41.7 Code: 99413-3 Heart Rate 1: 64 bpm Height: 6'1" Respiratory Rate: 24 bpm SpO2: 94% Tempera ture: 36.6 (C) / 97.8 (F) Weight: 316 lbs 08/27/2016 Blood Pressure 1: 124/78 Code: 8480-6 Heart Rate 1: 66 bpm Height: 6'2" Respiratory Rate: 18 bpm SpO2: 94% Temperature: 36.6 (C) / 97.8 (F) Weight: 07/02/2016 Blood Pressure 1: 126/78 Code: 8480-6 BMI: 41.4 Code: 13396-0 Heart Rate 1: 68 bpm Height: 6'1" Respiratory Rate: 24 bpm SpO2: 94% Tempera ture: 36.6 (C) / 97.8 (F) Weight: 314 lbs 06/14/2016 Blood Pressure 1: 146/82 Code: 8480-6 Heart Rate 1: 80 bpm Respiratory Rate: 20 bpm SpO2: 95% Temperature: 37.3 (C) / 99.2 (F) 06/13/2016 Blood Pressure 1: 146/84 Code: 8480-6 BMI: 40.5 Code: 41407-7 Heart Rate 1: 66 bpm Height: 6'1" Respiratory Rate: 28 bpm SpO2: 93% Tempera ture: 35.8 (C) / 96.4 (F) Weight: 307 lbs 05/14/2016 Blood Pressure 1: 146/90 Code: 8480-6 BMI: 41.2 Code: 82613-3 Heart Rate 1: 68 bpm Height: 6'1" Respiratory Rate: 26 bpm Temperature: 36 .8 (C) / 98.2 (F) Weight: 312 lbs 04/29/2016 Blood Pressure 1: 152/90 Code: 8480-6 BMI: 41.0 Code: 12613-0 Heart Rate 1: 68 bpm Height: 6'1" Respiratory Rate: 26 bpm SpO2: 94% Tempera ture: 36.1 (C) / 96.9 (F) Weight: 311 lbs 04/22/2016 Blood Pressure 1: 152/94 Code: 8480-6 BMI: 40.9 Code: 15979-7 Heart Rate 1: 68 bpm Height: 6'1" Respiratory Rate: 24 bpm SpO2: 94% Tempera ture: 36.2 (C) / 97.2 (F) Weight: 310 lbs 04/01/2016 Blood Pressure 1: 156/78 Code: 8480-6 BMI: 40.6 Code: 33618-2 Heart Rate 1: 84 bpm Height: 6'1" Respiratory Rate: 22 bpm SpO2: 95% Tempera ture: 37.1 (C) / 98.7 (F) Weight: 308 lbs 11/30/2015 Blood Pressure 1: 142/80 Code: 8480-6 BMI: 40.5 Code: 75949-3 Heart Rate 1: 88 bpm Height: 6'1" Respiratory Rate: 22 bpm Temperature: 36 .2 (C) / 97.2 (F) Weight: 307 lbs 08/29/2015 Blood Pressure 1: 132/70 Code: 8480-6 BMI: 40.0 Code: 97067-4 Heart Rate 1: 76 bpm Height: 6'1" Respiratory Rate: 24 bpm SpO2: 96% Tempera ture: 36.7 (C) / 98.0 (F) Weight: 303 lbs 08/14/2015 Blood Pressure 1: 126/80 Code: 8480-6 BMI: 39.4 Code: 95776-7 Heart Rate 1: 92 bpm Height: 6'1" Respiratory Rate: 24 bpm SpO2: 94% Tempera ture: 37.8 (C) / 100.0 (F) Weight: 299 lbs 08/09/2015 Blood Pressure 1: 146/82 Code: 8480-6 Heart Rate 1: 82 bpm Respiratory Rate: 22 bpm SpO2: 93% Temperature: 35.9 (C) / 96.6 (F) We ight: 310 lbs 05/22/2015 Blood Pressure 1: 156/76 Code: 8480-6 BMI: 41.0 Code: 34780-5 Heart Rate 1: 100 bpm Height: 6'1" Respiratory Rate: 22 bpm Temperature: 37 .2 (C) / 98.9 (F) Weight: 311 lbs 02/13/2015 Blood Pressure 1: 166/90 Code: 8480-6 BMI: 41.2 Code: 99372-3 Heart Rate 1: 72 bpm Height: 6'1" Respiratory Rate: 24 bpm SpO2: 93% Tempera ture: 36.9 (C) / 98.5 (F) Weight: 312 lbs 11/07/2014 Blood Pressure 1: 134/70 Code: 8480-6 BMI: 40.5 Code: 71182-8 Heart Rate 1: 76 bpm Height: 6'1" Respiratory Rate: 24 bpm Temperature: 36 .9 (C) / 98.4 (F) Weight: 307 lbs 10/04/2014 Blood Pressure 1: 144/86 Code: 8480-6 BMI: 40.1 Code: 76130-3 Heart Rate 1: 76 bpm Height: 6'1" Respiratory Rate: 28 bpm Temperature: 36 .6 (C) / 97.9 (F) Weight: 304 lbs 09/22/2014 Blood Pressure 1: 142/80 Code: 8480-6 BMI: 40.0 Code: 61022-9 Heart Rate 1: 80 bpm Height: 6'1" Respiratory Rate: 22 bpm SpO2: 96% Tempera ture: 36.6 (C) / 97.8 (F) Weight: 303 lbs 09/21/2014 Blood Pressure 1: 160/66 Code: 8480-6 BMI: 40.0 Code: 42389-8 Heart Rate 1: 90 bpm Height: 6'1" Respiratory Rate: 26 bpm SpO2: 94% Tempera ture: 35.7 (C) / 96.2 (F) Weight: 303 lbs 06/28/2014 Blood Pressure 1: 132/80 Code: 8480-6 BMI: 41.0 Code: 37266-1 Heart Rate 1: 64 bpm Height: 6' Respiratory Rate: 20 bpm Temperature: 36 .7 (C) / 98.0 (F) Weight: 302 lbs 06/10/2014 Blood Pressure 1: 152/70 Code: 8480-6 BMI: 41.1 Code: 82097-5 Heart Rate 1: 76 bpm Height: 6' Respiratory Rate: 20 bpm Temperature: 36 .6 (C) / 97.8 (F) Weight: 303 lbs 03/29/2014 Blood Pressure 1: 132/78 Code: 8480-6 BMI: 40.6 Code: 83983-0 Heart Rate 1: 84 bpm Height: 6' Respiratory Rate: 22 bpm Temperature: 37 .1 (C) / 98.8 (F) Weight: 299 lbs 11/30/2013 Blood Pressure 1: 136/84 Code: 8480-6 BMI: 39.2 Code: 20639-5 Heart Rate 1: 76 bpm Height: 6' Respiratory Rate: 20 bpm Temperature: 36 .8 (C) / 98.2 (F) Weight: 289 lbs 08/03/2013 Blood Pressure 1: 144/80 Code: 8480-6 Heart Rate 1: 86 bpm Respiratory Rate: 20 bpm Temperature: 36.6 (C) / 97.8 (F) Weight: 296 lbs 04/06/2013 Blood Pressure 1: 142/90 Code: 8480-6 BMI: 40.3 Code: 23697-3 Heart Rate 1: 88 bpm Height: 6' Respiratory Rate: 20 bpm Temperature: 36 .6 (C) / 97.8 (F) Weight: 297 lbs 12/01/2012 Blood Pressure 1: 124/78 Code: 8480-6 BMI: 38.7 Code: 58694-9 Heart Rate 1: 76 bpm Height: 6' Respiratory Rate: 20 bpm Temperature: 37 .2 (C) / 98.9 (F) Weight: 285 lbs 08/04/2012 Blood Pressure 1: 128/80 Code: 8480-6 BMI: 38.2 Code: 43699-9 Heart Rate 1: 76 bpm Height: 6' Respiratory Rate: 20 bpm Temperature: 37 .0 (C) / 98.6 (F) Weight: 282 lbs 05/29/2012 Blood Pressure 1: 138/78 Code: 8480-6 BMI: 36.6 Code: 49338-0 Heart Rate 1: 66 bpm Height: 6' Temperature: 36.7 (C) / 98.1 (F) Weight: 270 lbs 05/25/2012 Blood Pressure 1: 128/72 Code: 8480-6 BMI: 39.9 Code: 89821-0 Heart Rate 1: 74 bpm Height: 6' Temperature: 36.1 (C) / 97.0 (F) Weight: 294 lbs 04/07/2012 Blood Pressure 1: 124/76 Code: 8480-6 BMI: 39.9 Code: 74357-9 Heart Rate 1: 72 bpm Height: 6' Respiratory Rate: 20 bpm Temperature: 36 .9 (C) / 98.5 (F) Weight: 294 lbs 12/16/2011 Blood Pressure 1: 128/80 Code: 8480-6 BMI: 40.8 Code: 67891-8 Heart Rate 1: 74 bpm Height: 6' Temperature: 36.6 (C) / 97.8 (F) Weight: 301 lbs 12/03/2011 Blood Pressure 1: 132/76 Code: 8480-6 BMI: 40.8 Code: 51184-7 Heart Rate 1: 68 bpm Height: 6' Respiratory Rate: 20 bpm Temperature: 36 .8 (C) / 98.2 (F) Weight: 301 lbs 08/29/2011 Blood Pressure 1: 140/68 Code: 8480-6 BMI: 40.8 Code: 08987-1 Heart Rate 1: 80 bpm Height: 6' Respiratory Rate: 20 bpm Temperature: 36 .4 (C) / 97.6 (F) Weight: 301 lbs 05/30/2011 Blood Pressure 1: 134/82 Code: 8480-6 BMI: 41.5 Code: 40508-3 Heart Rate 1: 76 bpm Height: 6' [...] 1: 126/72 Code: 8480-6 BMI: 41.2 Code: 04564-9 Heart Rate 1: 76 bpm Height: 6' [...] 1: 152/90 Code: 8480-6 BMI: 37.7 Code: 48173-7 Heart Rate 1: 92 bpm Height: 6'1" [...] dm Encounters Encounter Performer Location Codes Date ([id number]) OFFICE/OUTPATIENT VISIT EST Diagnosis: Chronic obstructive pulmonary disease, unspecified[ICD10: J44.9] Diagnosis: Essential (primary) hypertension[ICD10: I10] Diagnosis: Mixed hyperlipidemia[ICD10: E78.2] Diagnosis: Type 2 diabetes mellitus with hyperglycemia[ICD10: E11.65] Neela MURILLO [employer] CPT-4: 73747 08/30/2019 ([id number]) OFFICE/OUTPATIENT VISIT EST Diagnosis: Chronic obstructive pulmonary disease with (acute) exacerbation[ICD10: J44.1] Neela MURILLO [employer] CPT- 4: 86696 08/10/2019 ([id number]) OFFICE/OUTPATIENT VISIT EST Diagnosis: Sore on toe[ICD10: L98.9] Neela Cunningham [employer] [facility] [employer] CPT-4: 47303 07/06/2019 ([id number]) OFFICE/OUTPATIENT VISIT EST Diagnosis: Advanced chronic obstructive pulmonary disease[ICD10: J44.9] 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] Neela QURESHI [employer] CPT-4: 73319 05/10/2019 ([id number]) OFFICE/OUTPATIENT VISIT EST Diagnosis: Chronic obstructive pulmonary disease with (acute) exacerbation[ICD10: J44.1] Diagnosis: Hypokalemia[ICD10: E87.6] 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] Neela QURESHI [employer] CPT-4: 69383 03/29/2019 ([id number]) NURSE/OUTPATIENT VISIT EST Diagnosis: PNEUMOCOCCAL VACCINE[ICD10: Z23] Neela HYMAN DO [facility] CPT-4: 32342 03/04/2019 ([id number]) OFFICE/OUTPATIENT VISIT EST Diagnosis: Chronic obstructive pulmonary disease with (acute) exacerbation[ICD10: J44.1] Diagnosis: Other nonspecific abnormal finding of lung field[ICD10: R91.8] Neela HYMAN DO [facility] CPT-4: 87985 01/05/2019 ([id number]) OFFICE/OUTPATIENT VISIT EST Diagnosis: Solitary pulmonary nodule[ICD10: R91.1] 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] Diagnosis: Tinea corporis[ICD10: B35.4] Neela HYMAN DO [facility] CPT-4: 74320 12/09/2018 ([id number]) OFFICE/OUTPATIENT VISIT EST Diagnosis: COUGH[ICD10: R05] Diagnosis: Chronic obstructive pulmonary disease, unspecified[ICD10: J44.9] Diagnosis: Other disorders of lung[ICD10: J98.4] Diagnosis: Other nonspecific abnormal finding of lung field[ICD10: R91.8] Neela HYMAN DO [facility] CPT-4: 83650 11/24/2018 ([id number]) OFFICE/OUTPATIENT VISIT EST Diagnosis: Pneumonia, unspecified organism[ICD10: J18.9] Amita Santiago HYMAN DO [facility] CPT-4: 14681 09/16/2018 ([id number]) OFFICE/OUTPATIENT VISIT EST Diagnosis: Pneumonia, unspecified organism[ICD10: J18.9] Neela HYMAN DO [facility] CPT-4: 51853 09/03/2018 ([id number]) OFFICE/OUTPATIENT VISIT EST Diagnosis: Personal history of pneumonia (recurrent)[ICD10: Z87.01] Diagnosis: Cough[ICD10: R05] Diagnosis: Essential (primary) hypertension[ICD10: I10] Diagnosis: Type 2 diabetes mellitus with hyperglycemia[ICD10: E11.65] Amitacalvin MURILLO [employer] Masher [facility] CPT-4: 64831 08/27/2018 OFFICE/OUTPATIENT VISIT EST Diagnosis: Pneumonia, unspecified organism[ICD10: J18.9] Diagnosis: Chronic obstructive pulmonary disease with (acute) exacerbation[ICD10: J44.1] Diagnosis: Other specified symptoms and signs involving the circulatory and respiratory systems[ICD10: R09.89] Diagnosis: Essential (primary) hypertension[ICD10: I10] Amita MURILLO [facility] Mas[facility] CPT-4: 18170 08/13/2018 OFFICE/OUTPATIENT VISIT EST Diagnosis: Pneumonia, unspecified organism[ICD10: J18.9] Diagnosis: Other specified symptoms and signs involving the circulatory and respiratory systems[ICD10: R09.89] Amita MURILLO [facility] CPT-4: 40108 08/11/2018 ([id number]) OFFICE/OUTPATIENT VISIT EST Diagnosis: Dyspnea, unspecified[ICD10: R06.00] Diagnosis: Chronic obstructive pulmonary disease with (acute) exacerbation[ICD10: J44.1] Diagnosis: Pneumonia, unspecified organism[ICD10: J18.9] Amita [facility]URILLO [facility] CPT-4: 60774 07/16/2018 ([id number]) OFFICE/OUTPATIENT VISIT EST Diagnosis: Acute bronchitis due to other specified organisms[ICD10: J20.8] Diagnosis: Cough[ICD10: R05] Amita MURILLO Julissa Wellntel Masher [facility] T-4: 26131 07/13/2018 ([id number]) OFFICE/OUTPATIENT VISIT EST Diagnosis: Essential (primary) hypertension[ICD10: I10] Diagnosis: Chronic obstructive pulmonary disease, unspecified[ICD10: J44.9] Diagnosis: Type 2 diabetes mellitus with hyperglycemia[ICD10: E11.65] Diagnosis: Mixed hyperlipidemia[ICD10: E78.2] [facility] CPT-4: 12101 06/03/2018 ([id number]) OFFICE/OUTPATIENT VISIT EST Diagnosis: Chronic obstructive pulmonary disease, unspecified[ICD10: J44.9] Gely Katiuska MURILLO [employer] Masher [facility] CPT-4: 23160 05/04/2018 ([id number]) OFFICE/OUTPATIENT VISIT EST Diagnosis: Essential (primary) hypertension[ICD10: I10] Diagnosis: Localized edema[ICD10: R60.0] Neela HYMAN DO [facility] CPT-4: 41204 03/03/2018 ([id number]) OFFICE/OUTPATIENT VISIT EST Diagnosis: Localized edema[ICD10: R60.0] Neela HYMAN DO [facility] CPT-4: 07850 02/17/2018 ([id number]) OFFICE/OUTPATIENT VISIT EST Diagnosis: FLU VACCINE[ICD10: Z23] Diagnosis: PNEUMOCOCCAL VACCINE[ICD10: Z23] Diagnosis: Type 2 diabetes mellitus without complications[ICD10: E11.9] Diagnosis: Mixed hyperlipidemia[ICD10: E78.2] Diagnosis: Essential (primary) hypertension[ICD10: I10] Diagnosis: Localized edema[ICD10: R60.0] Diagnosis: Chronic obstructive pulmonary disease, unspecified[ICD10: J44.9] Neela HYMAN DO [facility] CPT-4: 49181 02/10/2018 ([id number]) OFFICE/OUTPATIENT VISIT EST Diagnosis: Type 2 diabetes mellitus with hyperglycemia[ICD10: E11.65] Diagnosis: Mixed hyperlipidemia[ICD10: E78.2] Diagnosis: Essential (primary) hypertension[ICD10: I10] Diagnosis: Chronic obstructive pulmonary disease, unspecified[ICD10: J44.9] Diagnosis: Cutaneous abscess of back [any part, except buttock][ICD10: L02.212] Neela HYMAN DO [facility] CPT-4: 04097 11/05/2017 ([id number]) OFFICE/OUTPATIENT VISIT EST Diagnosis: Allergic urticaria[ICD10: L50.0] Gely HYMAN DO [facility] CPT-4: 03933 09/09/2017 ([id number]) OFFICE/OUTPATIENT VISIT EST Diagnosis: Generalized enlarged lymph nodes[ICD10: R59.1] Diagnosis: Acute gastritis without bleeding[ICD10: K29.00] Gely HYMAN DO [facility] CPT-4: 29181 08/07/2017 ([id number]) OFFICE/OUTPATIENT VISIT EST Diagnosis: Type 2 diabetes mellitus without complications[ICD10: E11.9] Diagnosis: Mixed hyperlipidemia[ICD10: E78.2] Diagnosis: Essential (primary) hypertension[ICD10: I10] Neela HYMAN [facility] CPT-4: 86332 08/04/2017 ([id number]) OFFICE/OUTPATIENT VISIT EST Diagnosis: Zoster without complications[ICD10: B02.9] Diagnosis: Acute sialoadenitis[ICD10: K11.21] Gely HYMAN [facility] CPT-4: 94137 06/04/2017 OFFICE/OUTPATIENT VISIT EST Diagnosis: Zoster without complications[ICD10: B02.9] Diagnosis: Acute sialoadenitis[ICD10: K11.21] [facility]: 91041 06/02/2017 ([id number]) OFFICE/OUTPATIENT VISIT EST Diagnosis: Type 2 diabetes mellitus without complications[ICD10: E11.9] Diagnosis: Mixed hyperlipidemia[ICD10: E78.2] Diagnosis: Essential (primary) hypertension[ICD10: I10] Diagnosis: Chronic obstructive pulmonary disease, unspecified[ICD10: J44.9] Neela HYMAN [facility] CPT-4: 54720 05/05/2017 OFFICE/OUTPATIENT VISIT EST Diagnosis: Chronic obstructive pulmonary disease with acute lower respiratory infection[ICD10: J44.0] Diagnosis: Impacted cerumen, bilateral[ICD10: H61.23] Gely HYMAN [facility] CPT-4: 02611 04/10/2017 ([id number]) OFFICE/OUTPATIENT VISIT EST Diagnosis: FLU VACCINE[ICD10: Z23] Neela BUI [facility] CPT-4: 74569 03/28/2017 ([id number]) OFFICE/OUTPATIENT VISIT EST Diagnosis: Type 2 diabetes mellitus without complications[ICD10: E11.9] Diagnosis: Mixed hyperlipidemia[ICD10: E78.2] Diagnosis: Essential (primary) hypertension[ICD10: I10] Diagnosis: Chronic obstructive pulmonary disease, unspecified[ICD10: J44.9] Neela HYMAN DO [facility] CPT-4: 70339 02/03/2017 ([id number]) OFFICE/OUTPATIENT VISIT EST Diagnosis: Type 2 diabetes mellitus with hyperglycemia[ICD10: E11.65] Diagnosis: Mixed hyperlipidemia[ICD10: E78.2] Diagnosis: Essential (primary) hypertension[ICD10: I10] Diagnosis: Chronic obstructive pulmonary disease, unspecified[ICD10: J44.9] Neela HYMAN DO [facility] CPT-4: 04441 10/30/2016 ([id number]) NO CHARGE Diagnosis: Acute bronchitis, unspecified[ICD10: J20.9] Sammi HYMAN DO [facility] CPT-4: 92623 08/30/2016 ([id number]) OFFICE/OUTPATIENT VISIT EST Diagnosis: Acute bronchitis, unspecified[ICD10: J20.9] Diagnosis: Other seasonal allergic rhinitis[ICD10: J30.2] Sammi HYMAN [facility] CPT-4: 10668 08/27/2016 ([id number]) OFFICE/OUTPATIENT VISIT EST Diagnosis: Type 2 diabetes mellitus without complications[ICD10: E11.9] Diagnosis: Mixed hyperlipidemia[ICD10: E78.2] Diagnosis: Essential (primary) hypertension[ICD10: I10] Neela HYMAN DO [facility] CPT-4: 53406 07/02/2016 ([id number]) OFFICE/OUTPATIENT VISIT EST Diagnosis: Acute bronchitis, unspecified[ICD10: J20.9] Sammi HYMAN DO [facility] CPT-4: 68802 06/14/2016 ([id number]) OFFICE/OUTPATIENT VISIT EST Diagnosis: Acute bronchitis, unspecified[ICD10: J20.9] Sammi HYMAN DO [facility] CPT-4: 98822 06/13/2016 ([id number]) OFFICE/OUTPATIENT VISIT EST Diagnosis: Essential (primary) hypertension[ICD10: I10] Neela HYMAN DO [facility] CPT-4: 04583 05/14/2016 ([id number]) OFFICE/OUTPATIENT VISIT EST Diagnosis: Essential (primary) hypertension[ICD10: I10] Neela HYMAN DO [facility] CPT-4: 53001 04/29/2016 ([id number]) OFFICE/OUTPATIENT VISIT EST Diagnosis: Unspecified abdominal pain[ICD10: R10.9] Diagnosis: Left lower quadrant pain[ICD10: R10.32] Diagnosis: Left upper quadrant pain[ICD10: R10.12] Diagnosis: Essential (primary) hypertension[ICD10: I10] Neela HYMAN DO [facility] CPT-4: 00443 04/22/2016 ([id number]) OFFICE/OUTPATIENT VISIT EST Diagnosis: Type 2 diabetes mellitus without complications[ICD10: E11.9] Diagnosis: Mixed hyperlipidemia[ICD10: E78.2] Diagnosis: Essential (primary) hypertension[ICD10: I10] Neela HYMAN DO [facility] CPT-4: 16631 04/01/2016 ([id number]) OFFICE/OUTPATIENT VISIT EST Diagnosis: Type 2 diabetes mellitus with hyperglycemia[ICD10: E11.65] Diagnosis: Mixed hyperlipidemia[ICD10: E78.2] Diagnosis: Essential (primary) hypertension[ICD10: I10] Neela HYMAN [facility] CPT-4: 07017 11/30/2015 ([id number]) OFFICE/OUTPATIENT VISIT EST Diagnosis: Type 2 diabetes mellitus with diabetic neuropathy, unspecified[ICD10: E11.40] Diagnosis: Essential (primary) hypertension[ICD10: I10] Diagnosis: Mixed hyperlipidemia[ICD10: E78.2] Neela HYMAN [facility] CPT-4: 20946 08/29/2015 ([id number]) OFFICE/OUTPATIENT VISIT EST Diagnosis: COUGH[ICD10: R05] Diagnosis: Wheezing[ICD10: R06.2] Diagnosis: Type 2 diabetes mellitus with diabetic neuropathy, unspecified[ICD10: E11.40] Neela HYMAN DO [facility] CPT-4: 28471 08/14/2015 ([id number]) OFFICE/OUTPATIENT VISIT EST Diagnosis: Other seasonal allergic rhinitis[ICD10: J30.2] Diagnosis: Dyspnea, unspecified[ICD10: R06.00] Diagnosis: Wheezing[ICD10: R06.2] Sammi MIRZALINE Octavio HYMAN DO [facility] CPT-4: 05632 08/09/2015 ([id number]) OFFICE/OUTPATIENT VISIT EST Diagnosis: Essential (primary) hypertension[ICD10: I10] Diagnosis: Type 2 diabetes mellitus with hyperglycemia[ICD10: E11.65] Diagnosis: Mixed hyperlipidemia[ICD10: E78.2] Neela Zhanginna RONNA STERLING SMendez HYMAN Masher [facility] CPT-4: 51364 05/22/2015 ([id number]) OFFICE/OUTPATIENT VISIT EST Diagnosis: 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] Diagnosis: - I - HYPERTENSION[ICD9: 401.9] Diagnosis: - I - HYPERLIPIDEMIA NEC/NOS[ICD9: 272.4] Diagnosis: Left hand paresthesia[ICD9: 782.0] Neela STERLING SMendez HYMAN Masher [facility] CPT-4: 64431 02/13/2015 ([id number]) OFFICE/OUTPATIENT VISIT EST Diagnosis: HYPERLIPIDEMIA NEC/NOS[ICD9: 272.4] Diagnosis: 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] Neela Sergegemmainna MIRZANEELA Octavio ZHANGER Masher [facility] CPT-4: 11400 11/07/2014 ([id number]) OFFICE/OUTPATIENT VISIT EST Diagnosis: ALLERGIC RHINITIS[ICD9: 477.9] Diagnosis: WHEEZING[ICD9: 786.07] Neela Zhanginna NEELA Octavio BADILLO [employer] [facility] CPT-4: 81937 10/04/2014 ([id number]) OFFICE/OUTPATIENT VISIT EST Diagnosis: BRONCHITIS, ACUTE[ICD9: 466.0] Diagnosis: WHEEZING[ICD9: 786.07] Loren WallaceNerisvanessameño NEELA Octavio ZHANGE R Vetr CPT-4: 20968 09/22/2014 ([id number]) OFFICE/OUTPATIENT VISIT EST Diagnosis: DYSPNEA[ICD9: 786.09] Diagnosis: WHEEZING[ICD9: 786.07] Diagnosis: Arrhythmia[ICD9: 427.9] Loren WallaceViraj NEELA Octavio LAWLERND ER Masher [facility] CPT-4: 96099 09/21/2014 ([id number]) OFFICE/OUTPATIENT VISIT EST Diagnosis: 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, 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] Diagnosis: - I - HYPERLIPIDEMIA NEC/NOS[ICD9: 272.4] Diagnosis: - I - HYPERTENSION[ICD9: 401.9] Neela MURILLO JulissaMendez [facility] CPT-4: 27090 06/28/2014 OFFICE/OUTPATIENT VISIT EST Diagnosis: SINUSITIS, ACUTE[ICD9: 461.9] Diagnosis: OTITIS MEDIA NOS[ICD9: 382.9] Sarah Jong Cunningham [facility] CPT-4: 22616 06/10/2014 ([id number]) OFFICE/OUTPATIENT VISIT EST Diagnosis: 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] Diagnosis: - I - HYPERLIPIDEMIA NEC/NOS[ICD9: 272.4] Diagnosis: - I - HYPERTENSION[ICD9: 401.9] Neela [facility]URILLO JulissaMendez [facility] CPT-[facility]: 32525 03/29/2014 ([id number]) OFFICE/OUTPATIENT VISIT EST Diagnosis: 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] Diagnosis: - I - HYPERTENSION[ICD9: 401.9] Diagnosis: - I - HYPERLIPIDEMIA NEC/NOS[ICD9: 272.4] Diagnosis: Hand lesion[ICD9: 709.9] Neela DOS SANTOS [facility] CPT-4: 52081 11/30/2013 ([id number]) OFFICE/OUTPATIENT VISIT EST Diagnosis: 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] Diagnosis: HYPERLIPIDEMIA NEC/NOS[ICD9: 272.4] Diagnosis: HYPERTENSION[ICD9: 401.9] Neela Cunningham [facility] CPT-4: 72147 08/03/2013 ([id number]) OFFICE/OUTPATIENT VISIT EST Diagnosis: 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, 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] Diagnosis: HYPERTENSION[ICD9: 401.9] Diagnosis: HYPERLIPIDEMIA NEC/NOS[ICD9: 272.4] Neela Cunningham [facility] CPT-4: 09172 04/06/2013 ([id number]) OFFICE/OUTPATIENT VISIT EST Diagnosis: 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] Diagnosis: HYPERLIPIDEMIA NEC/NOS[ICD9: 272.4] Diagnosis: HYPERTENSION[ICD9: 401.9] Neeladano Hyman NEELA JulissaMendez [facility] CPT-4: 54018 12/01/2012 ([id number]) OFFICE/OUTPATIENT VISIT EST Diagnosis: 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] Diagnosis: HYPERTENSION[ICD9: 401.9] Diagnosis: HYPERLIPIDEMIA NEC/NOS[ICD9: 272.4] Neela GREGORIO JulissaMendez [facility] CPT-4: 19129 08/04/2012 ([id number]) OFFICE/OUTPATIENT VISIT EST Diagnosis: URINARY FREQUENCY[ICD9: 788.41] Neela Zhanginna NEELA JulissaMendez YENNI [facility] CPT-4: 50934 06/01/2012 OFFICE/OUTPATIENT VISIT EST Diagnosis: Agitation[ICD9: 307.9] Diagnosis: Frequent urination[ICD9: 788.41] Janet Cunningham [facility] Masher [facility] CPT-4: 44753 05/29/2012 OFFICE/OUTPATIENT VISIT EST Diagnosis: SINUSITIS, ACUTE[ICD9: 461.9] Diagnosis: OTALGIA[ICD9: 388.70] Neela MURILLO JulissaMendez [facility] CPT-4: 28674 05/25/2012 OFFICE/OUTPATIENT VISIT EST Diagnosis: 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, 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] Diagnosis: HYPERTENSION[ICD9: 401.9] Diagnosis: HYPERLIPIDEMIA NEC/NOS[ICD9: 272.4] Neela GREGORIO JulissaMendez YENNI Masher [facility] CPT-4: 29465 04/07/2012 OFFICE/OUTPATIENT VISIT EST Diagnosis: FINGER INJURY[ICD9: 959.5] Janet Cunningham [facility] Masher [facility] CPT-4: 98191 12/16/2011 ([id number]) OFFICE/OUTPATIENT VISIT EST Diagnosis: 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, 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] Diagnosis: HYPERTENSION[ICD9: 401.9] Diagnosis: HYPERLIPIDEMIA NEC/NOS[ICD9: 272.4] Neela GREGORIO Julissa. ORENDER DO [facility] CPT-4: 02007 12/03/2011 ([id number]) OFFICE/OUTPATIENT VISIT EST Diagnosis: 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] Diagnosis: HYPERLIPIDEMIA NEC/NOS[ICD9: 272.4] Diagnosis: HYPERTENSION[ICD9: 401.9] Neela MURILLO S. ORE NDER DO [facility] CPT-4: 90683 08/29/2011 OFFICE/OUTPATIENT VISIT EST Diagnosis: 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] Diagnosis: HYPERLIPIDEMIA NEC/NOS[ICD9: 272.4] Diagnosis: HYPERTENSION[ICD9: 401.9] Neela MURILLO S. ORE NDER DO [facility] CPT-4: 45346 05/30/2011 OFFICE/OUTPATIENT VISIT EST Diagnosis: SKIN SENSATION DISTURB[ICD9: 782.0] Neela Sergegemmainna HERMESYesenia GREGORIO S. ORENDER DO [facility] CPT-4: 74303 01/29/2011 OFFICE/OUTPATIENT VISIT EST Diagnosis: SKIN SENSATION DISTURB[ICD9: 782.0] Neela Sergechristina CROOK DARLINE S. ORENDER DO [facility] CPT-4: 82030 01/14/2011 OFFICE/OUTPATIENT VISIT EST Neela Yenni MURILLO S. ORE NDER DO [facility] CPT- 4: 58097 01/01/2011 OFFICE/OUTPATIENT VISIT EST Neela Sergegemmainna MURILLO S. ORE NDER DO [facility] CPT- 4: 91141 11/29/2010 ([id number]) OFFICE/OUTPATIENT VISIT EST Neela HORAN S. ORENDER DO [facility] CPT-4: 69887 08/28/2010 ([id number]) OFFICE/OUTPATIENT VISIT, EST Neela Sergechristina WILDE S. ORENDER DO [facility] CPT-4: 31827 06/05/2010 ([id number]) OFFICE/OUTPATIENT VISIT, EST Neela WILDE S. ORENDER DO [facility] CPT-4: 67351 02/05/2010 ([id number]) OFFICE/OUTPATIENT VISIT, EST Neela WILDE S. ORENDER DO [facility] CPT-4: 80808 10/09/2009 ([id number]) OFFICE/OUTPATIENT VISIT, [facility] CPT-4: 30931 08/22/2009 Plan of Care Planned Activity Notes Codes Status Date Visit Diagnosis Plan: Type 2 diabetes mellitus with hy perglycemia Discussion: Lab tomorrow Accuchecks daily Continue current meds Check CMP and HbA1C in 3mos then fwup ICD-9 : 250.02 ICD-10 : E11.65 08/30/2019 Visit Diagnosis Plan: Chronic obstructive pulmonary di sease, unspecified Discussion: On continuous oxygen ICD-9 : 496 ICD-10 : J44.9 08/30/2019 Appointment: Neela Hyman WPtel: [address] [place] [address] [place] FOLLOW UP 08/30/2019 Visit Diagnosis Plan: [...] : J44.1 08/10/2019 Appointment: Neela Hyman WPtel: [address] [place] [address] ACUTE ILLNESS 08/10/2019 Visit Diagnosis Plan: Sore on toe Discussion: Keep farhat an/dry Keflex Notify if worsens ICD-9 : 709.9 ICD-10 : L98.9 07/06/2019 Appointment: Neela Hyman WPtel: [address] [place] [address] ACUTE ILLNESS 07/06/2019 Patient Education: Abdoulaye Blue [id number] https://www.LoftyVistas.Descomplica/samplemd/resources/getResource/61/6pl798wv-24a9-6c01-10 Completed 07/06/2019 Visit Diagnosis Plan: Lymphoma involving lung Discussi on: Doing weekly lab and chemo ICD-9 : 202.82 ICD-10 : C85.99 05/10/2019 Visit Diagnosis Plan: Advanced chronic obstructive pul monary disease Discussion: Continue oxygen and pulmonary rehab Follow Up: 3 months ICD-9 : 496 ICD-10 : J44.9 05/10/2019 Appointment: Neela Hyman WPtel: [address] [place], [place] [phone] FOLLOW UP 05/10/2019 Appointment: Neela Hyman WPtel: [address] [place] [address] [place] he called 04/14/19-- he was at physical [...] : C85.99 03/29/2019 Appointment: Neela Hyman WPtel: [address] [place], [place] [phone] Hospital Follow Up 03/29/2019 Appointment: Neela Hyman WPtel: [address] [place], [place] [phone] [place] INJECTION 03/04/2019 Visit Diagnosis Plan: Chronic obstructiv e pulmonary disease with (acute) exacerbation Discussion: Increase SVNS with duoneb to QID Prednisone taper ICD-9 : 491.21 ICD-10 : J44.1 01/05/2019 Visit Diagnosis Plan: Other nonspecific abnormal findi ng of lung field Discussion: Referral to pulmonology--will likely need bronchoscopy--path results discussed ICD-9 : 786.6 ICD-10 : R91.8 01/05/2019 Appointment: Neela Hyman WPtel: [address] [place], [place] [address] [place] FOLLOW UP 01/05/2019 Patient Education: prednisone- [employer] Coupon [id number] https://www.Mytrus/sampleIDverge/resources/getResource/61/p5nf3221-419u-2h47-ek Completed 01/05/2019 Care Plan: Referral Order SNOMED-CT : 30 [id number] Pending 01/05/2019 Appointment: Neela Hyman WPtel: [address] [place] [address] [place] CANCELED 12/21/2018 Visit Diagnosis Plan: Solitary pulmonary nodule Discus esmer: CT guided needle biopsy of RUL lung mass ICD-9 : 793.11 ICD-10 : R91.1 12/09/2018 Visit Diagnosis Plan: Tinea corporis Discussion: Diflu can--hold simvastatin and fenofibrate while taking ICD-9 : 110.5 ICD-10 : B35.4 12/09/2018 Appointment: Neela Hyman WPtel: [address] [place] [address] [place] FOLLOW UP 12/09/2018 Appointment: Gely Harp [address] [place] [address] NO SHOW 12/01/2018 Visit Diagnosis Plan: Chronic [...] : J98.4 11/24/2018 Appointment: Neela Hyman WPtel: [address] [place], [place] [phone] [place] FOLLOW UP 11/24/2018 Care Plan: PET IMAGE FULL BODY LOINC : 4 2711-2 Pending 11/24/2018 Appointment: Neela Hyman WPtel: [address] [place], [place] [phone] [place] Consult 09/21/2018 Visit Diagnosis Plan: Pneumonia, unspecified organism Discussion: Patient clinically improved. Recent CT scan from 09/07 showed unresolved right upper lobe pneumonia. Finished another 7 days of levaquin. Will repeat CBC early next week. Order sent with patient to get done at [facility]. FU CT recommended in 4 weeks. Patient states understanding. ICD-9 : 486 ICD-10 : J18.9 09/16/2018 Appointment: Amita Henderson [facility] [place] [address] FOLLOW UP 09/16/2018 Visit Diagnosis Plan: Pneumonia, unspecified organism Discussion: Clinically patient feels and looks much better but need CT scan of chest due to ongoing round pneumonia in association with his known lymphoma ICD-9 : 486 ICD-10 : J18.9 09/03/2018 Appointment: Neela Hyman WPtel: [address] [place], [place] [phone] FOLLOW UP 09/03/2018 Care Plan: CT THORAX W/O DYE LOINC : 473 66-0 Pending 09/03/2018 Visit Diagnosis Plan: Personal history of pneumonia [...] ICD-10 : E11.65 08/27/2018 Visit Diagnosis Plan: Essential (primary) hypertension Discussion: Stable on diltiazem. bentish Toprol. Had ECHO last week. Requesting copies of results from cardiology. ICD-9 : 401.9 ICD-10 : I10 08/27/2018 Appointment: Amita Henderson [address] [place], [place] [id number] FOLLOW UP 08/27/2018 Visit Diagnosis Plan: Chronic obstructiv e pulmonary [...] ICD-10 : I10 08/13/2018 Visit Diagnosis Plan: Pneumonia, unspecified organism Discussion: Continue Levaquin. Start prednisone 40 mg daily x 7 days. Return in 2 weeks for FU and repeat CXR. ICD-9 : 486 ICD-10 : J18.9 08/13/2018 Visit Diagnosis Plan: Other specified sy mptoms and signs involving the circulatory and respiratory systems Discussion: Go back to 40 mg lasix daily and 20 of potassium. ECHO scheduled this week. Patient states understanding. ICD-9 : 785.9 ICD-10 : R09.89 08/13/2018 Appointment: Amita Henderson [address] [place], [place] [id number] [facility] FOLLOW UP 08/13/2018 Appointment: Amita Henderson [address] [place], [place] [phone] CANCELED 08/13/2018 Patient Education: prednisone- [employer] Coupon [id number] https://www.LoftyVistas.Descomplica/samplemd/resources/getResource/61/zt29wf5o-3i70-9iq7-7e Completed 08/13/2018 Visit Diagnosis Plan: Other specified [...] ICD-10 : J18.9 08/11/2018 Appointment: Amita Henderson [address] [place], [place] [phone] ACUTE ILLNESS 08/11/2018 Care Plan: CHEST X-RAY 2VW FRONTAL&LATL LOINC : 38390-5 Pending 07/20/2018 Visit Diagnosis Plan: Dyspnea, unspecified Discussion: CXR- to be completed at the hospital. Will call with results and any adjustments in plan. Solumedrol 125 administered in clinic Prednisone 20 mg BID x 5 days- start tomorrow ICD-9 : 786.09 ICD-10 : R06.00 07/16/2018 Appointment: Amita Henderson [address] [place], [place] [phone] ACUTE ILLNESS 07/16/2018 Patient Education: prednisone- [employer] Coupon [id number] https://www.Mytrus/samplemd/resources/getResource/61/71h2m6fk-hn81-0lq9-w4 Completed 07/16/2018 Visit Diagnosis Plan: Acute bronchitis due to other sp ecified organisms Discussion: Kenalog 40 mg IM administered in clinic. Doxycycline called into [facility]. Take as directed. Continue nebulizer and Trelegy. Follow up if symptoms are not improving with treatment regimen. Patient states understanding of all instruction. ICD-9 : 466.0 ICD-10 : J20.8 07/13/2018 Appointment: Amita Henderson [address] [place], [place] [phone] ACUTE ILLNESS 07/13/2018 Patient Education: doxycycline hyclate- OptimizeRX Cou saritha [id number] https://www.LoftyVistas.com/samplemd/resources/getResource/61/7b718v33-8h3m-6216-7a Completed 07/13/2018 Care Plan: [place] : [address]-4 Pending 07/13/2018 Care Plan: CBC Pending 07/13/2018 Care Plan: A1C HPLC LOINC : 25231-0 Pending 07/13/2018 Visit Diagnosis Plan: Mixed hyperlipidemia [...] : I10 06/03/2018 Appointment: Neela Hyman WPtel: [address] [place] [address] [place] FOLLOW UP 06/03/2018 Visit Diagnosis Plan: [...] ICD-10 : J44.9 05/04/2018 Appointment: Gely Harp [address] [place] [address] ACUTE ILLNESS 05/04/2018 Visit Diagnosis Plan: Localized edema Discussion: Cont inue lasix and potassium at every other day Recheck lab and fwup in 3mos Follow Up: 3 months ICD-9 : 782.3 ICD-10 : R60.0 03/03/2018 Appointment: Neela Hyman WPtel: [address] [place], [place] [phone] FOLLOW UP 03/03/2018 Patient Education: Patient Medication Summary Completed 03/03/2018 Visit Diagnosis Plan: Localized edema Discussion: Finch ge lasix and potassium to every other day Check Chem 7 in 2 weeks and fwup ICD-9 : 782.3 ICD-10 : R60.0 02/17/2018 Appointment: Neela Hyman WPtel: [address] [place], [place] [phone] FOLLOW UP 02/17/2018 Patient Education: Patient Medication [...] E78.2 02/10/2018 App[facility]ment: [facility] [phone] [facility] [facility] 02/10/2018 Patient Education: Patient [...] I10 11/05/2017 Appointment: Neela Hyman WPtel: [phone] [id number] FOLLOW UP 11/05/2017 Patient Education: Patient Medication Summary Completed 11/05/2017 Patient Education: Patient Medication Summary Completed 11/03/2017 Care Plan: [place] : [address]-2 Pending 11/03/2017 Care Plan: LIPID PANEL LOINC : 78046-6 Pending 11/03/2017 Care Plan: CBC Pending 11/03/2017 Care Plan: A1C HPLC LOINC : 11363-2 Pending 11/03/2017 Visit Diagnosis Plan: Allergic urticaria [...] ICD-10 : L50.0 09/09/2017 Appointment: Gely Harp [address] [phone] ACUTE ILLNESS 09/09/2017 Patient Education: Patient Medication [...] ICD-10 : K29.00 08/07/2017 Appointment: Gely Harp [address] Hospital Follow Up 08/07/2017 Patient Education: Patient Medication Summary Completed 08/07/2017 Visit Diagnosis Plan: Essential (primary) hypertension Discussion: Increase Cardizem CD to 360mg daily ICD-9 : 401.9 ICD-10 : I10 08/04/2017 Visit Diagnosis Plan: Type 2 diabetes mellitus without complications Discussion: Accuchecks daily Lab discussed Continue current meds ICD-9 : 250.00 ICD-10 : E11.9 08/04/2017 Appointment: [facility]el[facility] [phone] [facility] [facility] 08/04/2017 Patient Education: Patient Medication Summary Completed 08/04/2017 Patient Education: Patient Medication Summary Completed 07/31/2017 Care Plan: [place] : 286[address]-1 Pending 07/31/2017 Care Plan: ASSAY THYROID STIM HORMONE Pen ding 07/31/2017 Care Plan: LIPID PANEL LOINC : 49466-9 Pending 07/31/2017 Care Plan: CBC Pending 07/31/2017 Care Plan: A1C HPLC LOINC : 48558-1 Pending 07/31/2017 Patient Education: Patient Medication Summary Completed 06/19/2017 Patient Education: Patient Medication Summary Completed 06/09/2017 Care Plan: CT SOFT TISSUE NEC[place] : 16[address]-2 Pending 06/09/2017 Visit Diagnosis Plan: Zoster without [...] ICD-10 : K11.21 06/04/2017 Appointment: Gely Harp [address] [place], [place] [id number] ACUTE ILLNESS 06/04/2017 Patient Education: Patient Medication [...] ICD-10 : B02.9 06/02/2017 Appointment: Gely Harp [address] [place], [place] [phone] ACUTE ILLNESS 06/02/2017 Patient Education: Patient Medication [...] E78.2 05/05/2017 Appointment: Neela Hyman WPtel: [phone] [id number] FOLLOW UP 05/05/2017 Patient Education: Patient Medication Summary Completed 05/05/2017 Patient Education: Patient Medication Summary Completed 05/01/2017 Care Plan: A1C HPLC [facility] : 65114-5 Pending 05/01/2017 Visit Diagnosis Plan: Chronic obstructiv [...] ICD-10 : H61.23 04/10/2017 Appointment: Gely Harp [address] [place] [address] ACUTE ILLNESS 04/10/2017 Patient Education: Patient Medication Summary Completed 04/10/2017 Appointment: Neela Hyman WPtel: [address] [place], [place] [phone] INJECTION 03/28/2017 Patient Education: Patient Medication Summary Completed 03/28/2017 Visit Diagnosis Plan: Chronic obstructive pulmonary di sease, unspecified Discussion: Stable ICD-9 : 496 ICD-10 : J44.9 02/03/2017 Visit Diagnosis Plan: Type 2 diabetes mellitus without complications Discussion: Lab discussed Accuchecks daily Continue current meds Follow Up: 3 months ICD-9 : 250.00 ICD-10 : E11.9 02/03/2017 Visit Diagnosis Plan: Essential (primary) hypertension Discussion: Stable ICD-9 : 401.9 ICD-10 : I10 02/03/2017 Appointment: Neela Hyman WPtel: [address] [place], [place] [phone] FOLLOW UP 02/03/2017 Patient Education: Patient Medication Summary Completed 02/03/2017 Patient Education: Patient Medication Summary Completed 01/30/2017 Care Plan: [place] : 89[address]-7 Pending 01/30/2017 Care Plan: LIPID PANEL LOINC : 45851-1 Pending 01/30/2017 Care Plan: CBC Pending 01/30/2017 Care Plan: A1C HPLC LOINC : 90199-7 Pending 01/30/2017 Care Plan: ASSAY OF PSA [...] : I10 10/30/2016 Appointment: [facility]el[facility] [phone] [facility] [facility] 6/6 lm ~sl 6/7 confirmed~sl FOLLOW UP 11/2016 Patient Education: Patient Medication Summary Completed 10/30/2016 Patient Education: Patient Medication Summary Completed 10/24/2016 Visit Diagnosis Plan: Acute bronchitis, unspecified Di scussion: Patient sounds and looks much improved Continue current regimen Keep appt with Dr Levi for Friday Follow up PRN ICD-9 : 466.0 ICD-10 : J20.9 08/30/2016 Appointment: [facility] [facility] [facility] 4/6 rang and rang rang 4/7 rang and rang called cell and no [...] : J20.9 08/27/2016 Appointment: [facility]ammi [phone] [facility] [facility] 08/27/2016 Patient Education: Patient Medication Summary Completed 08/27/2016 Care Plan: Referral Order SNOMED-CT : 30 0166732 Pending 08/27/2016 Visit Diagnosis Plan: Type 2 [...] : E78.2 07/02/2016 Appointment: Neela Hyman WPtel: [address] [place], [place] [id number] 07/01 rang and rang`sl FOLLOW UP 7 Patient Education: Patient Medication Summary Completed 07/02/2016 Patient Education: Patient Medication Summary Completed 06/27/2016 Care Plan: LIPID PANEL LOINC : 00139-1 Pending 06/27/2016 Care Plan: [place] : [address]-1 Pending 06/27/2016 Care Plan: A1C HPLC LOINC : 94554-4 Pending 06/27/2016 Visit Diagnosis Plan: Acute bronchitis, [...] ICD-10 : J20.9 06/14/2016 Appointment: [facility]i [facility] [address] [facility] [facility] 06/14/2016 Patient Education: Patient Medication [...] : 466.0 ICD-10 : J20.9 06/13/2016 Appointment: Samim [facility] [address] [facility] [facility] 06/13/2016 Patient Education: Patient Medication Summary Completed 06/13/2016 Care Plan: CHEST X-RAY 2VW FRONTAL&LATL LOINC : 07411-0 Pending 06/13/2016 Visit Plan: Increase metoprolol to 100mg po BID BP readings and BP check in 1month 05/14/2016 Appointment: Neela Hyman WPtel: [address] [place] [address] 05/13 rang and rang`sl FOLLOW UP 6 Patient Education: Patient Medication Summary Completed 05/14/2016 Visit Plan: Increase metoprolol to 50mg BID BP check in 1 week f/u BP appt 2 weeks consider musculoskeletal if pain returns 04/29/2016 Appointment: Neela Hyman WPtel: [address] [place] [address] 04/25 confimred~sl FOLLOW UP 04/29/2016 Patient Education: Patient Medication Summary Completed 04/29/2016 Visit Plan: Stat CT scan of abdomen/pelv is to look for stone Hydrate and use tramadol prn Increase metoprolol to 25mg po BID Will see urology pending CT scan results 04/22/2016 Appointment: Neela Hyman WPtel: [address] [place] [address] 04/17 confirmed-sp ACUTE ILLNESS 04/22/2016 Patient Education: [...] flu shot 04/01/2016 Appointment: Neela Hyman WPtel: [address] [place] [address] FOLLOW UP 04/01/2016 Patient Education: Patient Medication Summary Completed 04/01/2016 Patient Education: [facility] - [employer]aving [employer] - 18-64 - Dynamic Heber l ID Completed 04/01/2016 Patient Education: Patient Medication Summary Completed 03/28/2016 Care Plan: A1C HPLC LOINC : 91582-1 Pending 03/28/2016 Care Plan: [place] : 50[address]-9 Pending 03/28/2016 Visit Plan: Lab discussed Continue curre nt meds Accuchecks daily 11/30/2015 Appointment: Neela Hyman WPtel: [address] [place] [address] 7/6 confirmed~sl FOLLOW UP 11/30/2015 Patient Education: Patient Medication Summary Completed 11/30/2015 Appointment: Neela Hyman WPtel: [address] [place] [address] [place] RESCHEDULED 11/28/2015 Patient Education: Patient Medication Summary Completed 11/23/2015 Care Plan: [place] : [address]-6 Pending 11/23/2015 Care Plan: LIPID PANEL LOINC : 58195-2 Pending 11/23/2015 Care Plan: CBC Pending 11/23/2015 Care Plan: A1C HPLC LOINC : 37730-8 Pending 11/23/2015 Visit Plan: Lab discussed Accuchecks richard ly Continue current meds Cymbalta helping with feet and mood 08/29/2015 Appointment: Neela Hyman WPtel: [address] [place] [address] [place] FOLLOW UP 08/29/2015 Patient Education: Patient Medication Summary Completed 08/29/2015 Visit Plan: Check CXR Stop all steroids and steroid inhalers Use SVN with but change to duoneb Add singulair for allergy etiology Change fluoxetine to cymbalta 60mg daily Viagra samples given to try prn--warned of no nitrates 08/14/2015 Appointment: Neela Hyman WPtel: [address] [place] [address] lm to reschedule ~sl 07/27 lm ~sl 08/09 busy 08/10 conf irmed-sp Annual Well Visit 08/14/2015 Patient Education: Patient Medication Summary Completed 08/14/2015 Care Plan: CHEST X-RAY 2VW FRONTAL&LATL LOINC : 02192-9 Ordered 08/14/2015 Visit Plan: Decadron 8mg given [...] as expected 08/09/2015 Appointment: Sammi Najera [address] [facility] ER Follow UP 08/09/2015 Patient Education: Patient Medication Summary Completed 08/09/2015 Patient Education: [facility] - Saving AutoInj - 18-64 - Dynamic Heber l ID Completed 08/09/2015 Patient Education: Symbicort - 18-64 - eCopay Completed 08/09/2015 Patient Education: Patient Medication Summary Completed 08/08/2015 Visit Plan: Lab discussed Accuchecks richard ly Patient admits has changed eating habits--was eating twinkies and cookies routinely and has stopped buying those Will keep meds same for now Nelet got hearing aids and is doing well with it 05/22/2015 Appointment: Neela Hyman WPtel: [address] [place], [place] [id number] 05/17 confirmed~sl FOLLOW UP 05/22/2015 Patient Education: Patient Medication Summary Completed 05/22/2015 Patient Education: Patient Medication Summary Completed 05/15/2015 Visit Plan: Obtain EMGs done at [facility] from when fractured left arm Lab discussed Accuchecks daily 02/13/2015 Appointment: Neela Hyman WPtel: [address] [place], [place] [phone] 02/10 confrimed FOLLOW UP 02/13/2015 Patient Education: Patient Medication Summary Completed 02/13/2015 Patient Education: Patient Medication Summary Completed 02/09/2015 Visit Plan: discussed lab add fenofibrat e 134mg po daily recheck fasting lab in 3 months, CBC, CMP, Lipids, hgb AIC 11/07/2014 Appointment: Neela Hyman WPtel: [address] [place], [place] [phone] 11/04 appt confirmed cn FOLLOW UP 015 Patient Education: Patient Medication Summary Completed 11/07/2014 Patient Education: Patient Medication Summary Completed 11/03/2014 Visit Plan: Continue loratadine 10mg richard ly Notify if symptoms return 10/04/2014 Appointment: Neela Hyman WPtel: [address] [place], [place] [phone] confirmed on 10/03 at 2:42pm FOLLOW UP 09/23 Patient Education: Patient Medication Summary Completed 10/04/2014 Appointment: Neela Hyman WPtel: [address] [place] [address] ACUTE ILLNESS 09/28/2014 Appointment: Loren Garza WPtel: [address] [place], [place] [phone] FOLLOW UP 09/22/2014 Patient Education: Patient Medication Summary Completed 09/22/2014 Appointment: Loren Garza WPtel: [address] [place], [place] [phone] ACUTE ILLNESS 09/21/2014 Patient Education: Patient Medication Summary Completed 09/21/2014 Patient Education: [facility] - Saving AutoInj - 18+ - Dynamic Portal ID Completed 09/21/2014 Visit Plan: Lab discussed Continue daily accuchecks Continue current meds 06/28/2014 Appointment: Neela Hyman WPtel: [address] [place], [place] [phone] FOLLOW UP 06/28/2014 Patient Education: Patient Medication Summary Completed 06/28/2014 Patient Education: Patient Medication Summary Completed 06/23/2014 Appointment: Sarah Sunshine WPtel: [address] [place], [place] [phone] ACUTE ILLNESS 06/10/2014 Patient Education: Patient Medication Summary Completed 06/10/2014 Patient Education: [facility] - Saving AutoInj - 18+ - Dynamic Portal ID Completed 06/10/2014 Visit Plan: Lab discussed Continue daily accuchecks Continue current meds 03/29/2014 Appointment: Neela Hyman WPtel: [address] [place] [address] FOLLOW UP 03/29/2014 Patient Education: Patient Medication Summary Completed 03/29/2014 Patient Education: Patient Medication Summary Completed 03/23/2014 Visit Plan: Lab discussed Continue curre nt meds and accuchecks See surgery for removal of hand lesion 11/30/2013 Appointment: Neela Hyman WPtel: [address] [place] [address] 11/29 no answer FOLLOW UP 11/30/2013 Patient Education: Patient Medication Summary Completed 11/30/2013 Visit Plan: Lab discussed Continue curre nt meds 08/03/2013 Appointment: Neela Hyman WPtel: [address] [place] [address] FOLLOW UP 08/03/2013 Patient Education: Patient Medication Summary Completed 08/03/2013 Visit Plan: Lab Discussed Will continue current meds and pt will get back on diet/exercise Check lab in 4mos and fwup 04/06/2013 Appointment: Neela Hyman WPtel: [address] [place] [address] FOLLOW UP 04/06/2013 Patient Education: Patient Medication Summary Completed 04/06/2013 Visit Plan: Lab discussed Continue daily accuchecks 12/01/2012 Appointment: Neela Hyman WPtel: [address] [place] [address] 11/30 no answer FOLLOW UP 12/01/2012 Patient Education: Patient Medication Summary Completed 12/01/2012 Visit Plan: Continue current meds and da russell accuchecks Lab discussed 08/04/2012 Appointment: Neela Hyman WPtel: [address] [place] [address] FOLLOW UP 08/04/2012 Patient Education: Patient Medication Summary Completed 08/04/2012 Appointment: Neela Hyman WPtel: [address] [place], [place] [phone] [facility] 06/01/2012 Patient Education: Patient Medication Summary Completed 06/01/2012 Appointment: Janet Jean Baptiste WPtel: [address] [place], [place] [phone] FOLLOW UP 05/29/2012 Patient Education: Patient Medication Summary Completed 05/29/2012 Visit Plan: pt states Dr. Hyman told h is to increase his Prozac dose while she was talking to her at [facility]. Discussed that pt. should not increase or decrease dosage without Dr's knowledge. Pt. will seek hearing test here in town at the hearing aid place on [address] [place]. Discussed that ear pain is likely caused by sinus pressure. Pt. will notify if no improvement. 05/25/2012 Appointment: Janet Jean Baptiste WPtel: [address] [place] [address] ACUTE ILLNESS 05/25/2012 Patient Education: Patient Medication Summary Completed 05/25/2012 Visit Plan: Continue current meds Contin ue daily accuchecks but alternate times Increase fish oil to 3gm daily 04/07/2012 Appointment: Neela Hyman WPtel: [address] [place] [address] 04/06 FOLLOW UP 04/07/2012 Patient Education: Patient Medication Summary Completed 04/07/2012 Appointment: Janet Jean Baptiste WPtel: [address] [place], [place] [phone] ACUTE ILLNESS 12/16/2011 Patient Education: Patient Medication Summary Completed 12/16/2011 Visit Plan: Increase 12/03/2011 Appointment: Neela Hyman WPtel: [address] [place], [place] [phone] FOLLOW UP 12/03/2011 Patient Education: Patient Medication Summary Completed 12/03/2011 Visit Plan: Continue current meds Contin ue accuchecks 08/29/2011 Appointment: Neela Hyman WPtel: [address] [place], [place] [phone] [place] FOLLOW UP 08/29/2011 Patient Education: Patient Medication Summary Completed 08/29/2011 Visit Plan: Continue current meds except restart zocor 05/30/2011 Appointment: Neela Hyman WPtel: [address] [place], [place] [phone] FOLLOW UP 05/30/2011 Patient Education: Patient Medication Summary Completed 05/30/2011 Visit Plan: Continue tennis elbow strap May go back to weight-lifing--light weigts every other day 01/29/2011 Appointment: Neela Hyman WPtel: [address] [place] [address] FOLLOW UP 01/29/2011 Patient Education: Patient Medication Summary Completed 01/29/2011 Visit Plan: Continue tennis elbow strap and anti-inflammatories 01/14/2011 Appointment: Neela Hyman WPtel: [address] [place] [address] FOLLOW UP 01/14/2011 Appointment: Janet Jean Baptiste WPtel: [address] [place] [address] NEW PATIENT 01/14/2011 Patient Education: Patient Medication Summary Completed 01/14/2011 Appointment: Neela Hyman WPtel: [address] [place], [place] [phone] FOLLOW UP 01/08/2011 Appointment: Neela Hyman WPtel: [address] [place], [place] [phone] FOLLOW UP 01/01/2011 Appointment: Neela Hyman WPtel: [address] [place], [place] [phone] UA 01/01/2011 Patient Education: Patient Medication Summary [...] given. 11/29/2010 Appointment: Janet Jean Baptiste WPtel: [address] [place] [address] ACUTE ILLNESS 11/29/2010 Patient Education: Patient Medication Summary Completed 11/29/2010 Visit Plan: Cont current meds Check CMP, Lipids, HbA1C 08/28/2010 Appointment: Neela Hyman WPtel: [address] [place] [address] FOLLOW UP 08/28/2010 Patient Education: Patient Medication Summary Completed 08/28/2010 Visit Plan: Cont current meds and accuch ecks Add Zocor 40mg q HS Check Lipids and HbA1C in 3mos 06/05/2010 Appointment: Neela Hyman WPtel: [address] [place] [address] FOLLOW UP 06/05/2010 Patient Education: Patient Medication Summary Completed 06/05/2010 Visit Plan: Check Lipids and HbA1C 02/05/2010 Appointment: Neela Hyman WPtel: [address] [place] [address] FOLLOW UP 02/05/2010 Patient Education: Patient Medication Summary Completed 02/05/2010 Visit Plan: HbA1C in 3mos. Continue Accu checks BID alternating times. Check HbA1C, CMP, Lipids 10/09/2009 Appointment: Neela Hyman WPtel: [address] [place] [address] FOLLOW UP 10/09/2009 Patient Education: Patient Medication Summary Completed 10/09/2009 Visit Plan: Saline nasal flushes prn. Ty lenol/Motrin prn headache. Notify if persists/symptoms worsening. 08/22/2009 Appointment: Neela Hyman WPtel: [address] [place] [address] ACUTE ILLNESS 08/22/2009 Patient Education: Patient Medication Summary Completed 08/22/2009 Referral: Aubrey Rand MaksimMendez [facility]el[facility] [phone] [id number] [place] Office will verfy his insurance then they will contact patient Completed Referral: Shahbaz Brennan WPtel: [address] [facility] [address] [id number] [place] Referral Completed Referral: Ion Levi [address] [id number] [place] Referral Appointment Requested Referral: Ion Levi [address] [id number] [place] Referral Appointment Requested Instructions Comment . [...] with it . Obtain EMGs done at [facility] from when fractured left arm Lab discussed [...] while she was talking to her at [facility]. Discussed that pt. should not increase or decrease dosage without Dr's knowledge. Pt. will seek hearing test here in town at the hearing aid place on [address] [place]. Discussed that ear pain is likely caused [...]
--- OUTSIDE RECORDS SUMMARY | 2019-12-09 08:56 | XMS REPORT | CCD ---
Author Author Michael Hyman D.O. Organization [facility] Address [address] [place] [address] Phone Care Team Providers Care Branch Lending Manager Name Role Phone Neela Hyman D.O., PP Unavailable CCM Unavailable Summary Purpose Interface Exchange Insurance Providers Payer name Policy type / Coverage type Covered libertarian ID Effective Begin Date Effective End Date ABS FOR Federal Finance Commercial Insurance [id number] Unknown Family History Family History data not found Social History Social History Element Codes Description Effective Dates Marital status Unknown 05/30/[address]: 7473925 Former smoker quit 25 years ago 01/01/2011 [...] chloride ER 20 mEq tablet,extended release RxNorm: 218256 TAKE ONE TABLET BY MOUTH TWO TIMES A DAY 11/01/2019 01/29/2020 Active Zocor 40 mg tablet RxNorm: 460863 TAKE ONE TABLET BY M OUTH EVERY NIGHT AT BEDTIME 10/20/2019 04/16/2020 Active MagOx 400 mg (241.3 mg magnesium) tablet RxNorm: 126289 TAKE ONE TABLET BY MOUTH EVERY DAY 10/20/2019 04/16/2020 Active fenofibrate micronized 134 mg capsule RxNorm: 802525 1 Capsule( s) Oral QD 09/22/2019 03/20/2020 Active metformin 500 mg tablet RxNorm: 757060 2 Tablet(s) Oral two afshan es a day 09/22/2019 12/20/2019 Active Benicar 40 mg tablet RxNorm: 717776 1 Tablet(s) Oral QD 09/22/2019 Active Singulair 10 mg tablet RxNorm: 504851 TAKE ONE TABLET BY MOUTH EVERY EVENING 09/22/2019 03/20/2020 Active Reselected prescribe r from [facility] to [facility] Lasix 40 mg tablet RxNorm: 277735 1 Tablet(s) Oral QD 08/24/201910/25 Active duloxetine 60 mg capsule,delayed release RxNorm: 244465 TAKE ONE CAPSULE BY MOUTH EVERY DAY 08/16/2019 02/11/2020 Active metoprolol succinate ER 100 mg tablet,extended release 24 hr RxNorm: 642617 TAKE ONE TABLET BY MOUTH TWICE A DAY 08/16/2019 05/11/2020 Active potassium chloride ER 20 mEq tablet,extended release RxNorm: 176119 1 Tablet(s) Oral two times a day 07/22/2019 10/19/2019 Inactive metformin 500 mg tablet RxNorm: 179960 2 Tablet(s) Oral two afshan es a day 07/13/2019 09/21/2019 Inactive Keflex 500 mg capsule RxNorm: 464254 1 Capsule(s) Oral three ti mes a day 07/06/2019 07/13/2019 Inactive Singulair 10 mg tablet RxNorm: 327917 TAKE ONE TABLET BY MOUTH EVERY EVENING 07/06/2019 09/21/2019 Inactive Reselected prescribe r from [facility] to [facility] Singulair 10 mg tablet RxNorm: 553784 TAKE ONE TABLET BY MOUTH EVERY EVENING 06/22/2019 07/05/2019 Inactive Reselected prescribe r from [facility] to [facility] Zocor 40 mg tablet RxNorm: 733637 TAKE ONE TABLET BY M OUTH EVERY NIGHT AT BEDTIME 06/21/2019 10/19/2019 Inactive MagOx 400 mg (241.3 mg magnesium) tablet RxNorm: 637932 1 Table t(s) Oral QD 06/21/2019 08/20/2019 Inactive diltiazem ER 360 mg capsule,24 hr,extended release RxNorm: 8 27825 TAKE ONE CAPSULE BY MOUTH AT BEDTIME -REPLACES 300MG 05/17/2019 11/12/2019 Active MagOx 400 mg (241.3 mg magnesium) tablet RxNorm: 858926 1 Table t(s) Oral QD 04/26/2019 06/20/2019 Inactive Lasix 40 mg tablet RxNorm: 152411 40 MG PO DAILY 04/12/2019 08/23/2019 Inactive Benicar 40 mg tablet RxNorm: 112487 1 Tablet(s) Oral QD 03/29/2019 Inactive potassium chloride ER 20 mEq tablet,extended release RxNorm: 257834 1 Tablet(s) Oral two times a day 03/29/2019 06/27/2019 Inactive potassium chloride ER 20 mEq tablet,extended release RxNorm: 743509 1 Tablet(s) Oral QD 03/29/2019 03/28/2019 Inactive Benicar 40 mg tablet RxNorm: 909290 1 Tablet(s) Oral QD 03/29/2019 Inactive MagOx 400 mg (241.3 mg magnesium) tablet RxNorm: 438363 1 Table t(s) Oral QD 03/29/2019 04/25/2019 Inactive metformin 500 mg tablet RxNorm: 625314 2 Tablet(s) Oral two afshan es a day 03/29/2019 07/12/2019 Inactive fenofibrate micronized 134 mg capsule RxNorm: 684515 TA KE ONE CAPSULE BY MOUTH EVERY DAY 03/05/2019 09/21/2019 Inactive duloxetine 60 mg capsule,delayed release RxNorm: 028719 1 Capsu le(s) PO QD 01/28/2019 07/26/2019 Inactive Trelegy Ellipta 100 mcg-62.5 mcg-25 mcg powder for inhalatio n RxNorm: 7306494 1 Puff(s) INH QD 01/06/2019 12/31/2019 Active 90 day supply prednisone 20 mg tablet RxNorm: 968672 1 Tablet(s) PO T ID for 3 days then 1 po BID for 3 days then 1 po daily for 3 days 01/05/2019 03/28/2019 Inacti ve metformin ER 1,000 mg tablet,extended release 24hr RxNorm: 1 378958 TAKE TWO TABLETS (1000MG) BY MOUTH TWO TIMES A DAY 12/22/2018 07/13/2019 Inacti ve Diflucan 100 mg tablet RxNorm: 444509 1 Tablet(s) PO QD 12/09/2018 Inactive prednisone 20 mg tablet RxNorm: 432312 1 Tablet(s) PO B ID for 4 days then 1 po daily for 4 days 11/24/2018 01/04/2019 Inactive albuterol sulfate 2.5 mg/3 mL (0.083 %) solution for n ebulization RxNorm: 141579 3 Milliliter(s) INH ONE VIAL VIA NEBULIZER EVERY 4 HOURS 019 07/21/2019 Inactive [AttnRPh: Saving apply/adjudicate RxGRP: SG20 RxBIN:[id number] RxPCN: ID#:[id number]] Trelegy Ellipta 100 mcg-62.5 mcg-25 mcg powder for inhalatio n RxNorm: 0601030 1 Puff(s) INH QD 10/27/2018 01/06/2019 Inactive 90 day supply diltiazem ER 360 mg capsule,24 hr,extended release RxNorm: 8 89972 TAKE ONE CAPSULE BY MOUTH AT BEDTIME -REPLACES 300MG 10/13/2018 04/10/2019 Inactive metoprolol succinate ER 100 mg tablet,extended release 24 hr RxNorm: 646331 TAKE ONE TABLET BY MOUTH TWICE A DAY 10/13/2018 07/09/2019 Inactive Trelegy Ellipta 100 mcg-62.5 mcg-25 mcg powder for inhalatio n RxNorm: 8785122 INHALE ONE PUFF ONCE DAILY 09/07/2018 10/27/2018 Inactive Levaquin 750 mg tablet RxNorm: 605296 1 Tablet(s) PO QD 09/07/2018 Inactive Levaquin 750 mg tablet RxNorm: 523711 1 Tablet(s) PO QD 09/07/2018 Inactive prednisone 20 mg tablet RxNorm: 596301 2 Tablet(s) PO QAM 08/13/2018 08/19/2018 Inactive Levaquin 500 mg tablet RxNorm: 415386 1 Tablet(s) PO QD 08/11/2018 Inactive fenofibrate micronized 134 mg capsule RxNorm: 393878 TA KE ONE CAPSULE BY MOUTH EVERY DAY 08/10/2018 02/05/2019 Inactive prednisone 20 mg tablet RxNorm: 650243 1 Tablet(s) PO BID 07/16/2018 07/20/2018 Inactive doxycycline hyclate 100 mg capsule RxNorm: 8545370 1 Capsule(s) PO BID 07/13/2018 07/22/2018 Inactive duloxetine 60 mg capsule,delayed release RxNorm: 021218 TAKE ONE CAPSULE BY MOUTH ONCE A DAY 07/08/2018 01/28/2019 Inactive Lasix 40 mg tablet RxNorm: 227181 1 TABLET(S) PO QAM 06/08/201809/05 Inactive potassium chloride ER 20 mEq tablet,extended release(p art/cryst) RxNorm: 9355617 1 TABLET(S) PO QD 06/08/2018 09/05/2018 Inactive metformin ER 1,000 mg tablet,extended release 24hr RxNorm: 1 111305 TAKE TWO TABLETS (1000MG) BY MOUTH TWO TIMES A DAY 06/01/2018 11/27/2018 Inacti ve Benicar HCT 40 mg-25 mg tablet RxNorm: 183557 TAKE ONE TABLET BY MOUTH ONCE DAILY 05/11/2018 03/28/2019 Inactive Zocor 40 mg tablet RxNorm: 757987 TAKE ONE TABLET BY M OUTH EVERY NIGHT AT BEDTIME 05/11/2018 06/20/2019 Inactive Trelegy Ellipta 100 mcg-62.5 mcg-25 mcg powder for inhalatio n RxNorm: 4738434 1 PUFF(S) INH QD 04/06/2018 07/04/2018 Inactive diltiazem ER 360 mg capsule,24 hr,extended release RxNorm: 8 35918 1 Capsule(s) PO QHS replaces 300mg dose 03/30/2018 09/25/2018 Inactive Trelegy Ellipta 100 mcg-62.5 mcg-25 mcg powder for inhalatio n RxNorm: 2096520 1 Puff(s) INH QD 02/24/2018 02/23/2018 Inactive Trelegy Ellipta 100 mcg-62.5 mcg-25 mcg powder for inhalatio n RxNorm: 9950614 1 Puff(s) INH QD 02/24/2018 02/23/2018 Inactive Trelegy Ellipta 100 mcg-62.5 mcg-25 mcg powder for inhalatio n RxNorm: 7989940 1 Puff(s) INH QD 02/24/2018 04/05/2018 Inactive Lasix 40 mg tablet RxNorm: 018143 1 Tablet(s) PO QAM 02/10/201803/11 Inactive potassium chloride ER 20 mEq tablet,extended release(p art/cryst) RxNorm: 9463919 1 Tablet(s) PO QD 02/10/2018 03/11/2018 Inactive fenofibrate micronized 134 mg capsule RxNorm: 441438 1 Capsule( s) PO QD 01/30/2018 07/28/2018 Inactive metoprolol succinate ER 100 mg tablet,extended release 24 hr RxNorm: 183361 TAKE ONE TABLET BY MOUTH TWICE A DAY 12/30/2017 09/25/2018 Inactive metformin ER 1,000 mg tablet,extended release 24hr RxNorm: 1 586728 1 Tablet(s) PO BID 11/17/2017 05/15/2018 Inactive [SAVINGS FOR NON -COVERED DRUGS -- BIN:597851, PCN: ASPROD1, Group: XXXXX, ID# [id number], Questions: . THIS IS NOT INSURANCE.] Benicar HCT 40 mg-25 mg tablet RxNorm: 924942 1 Tablet(s) PO QD 05/10/2018 Inactive [SAVINGS FOR NON-COVERED JESU GS -- BIN:773438, PCN: ASPROD1, Group: XXXXX, ID# [id number], Questions: . THIS IS NOT INSURANCE.] Bactroban 2 % topical cream RxNorm: 568414 Application TOP BID 10/2409/02/2018 Inactive clindamycin HCl 300 mg capsule RxNorm: 152016 2 Capsule(s) PO TID 0 11/05/2017 11/18/2017 Inactive duloxetine 60 mg capsule,delayed release RxNorm: 423208 Capsule(s) TAKE ONE CAPSULE BY MOUTH ONCE DAILY 09/24/2017 09/23/2017 Inactive triamcinolone acetonide 0.1 % topical ointment RxNorm: 6489505 1 TOP BID 09/09/2017 11/04/2017 Inactive Bactrim DS 800 mg-160 mg tablet RxNorm: 604767 1 Tablet(s) PO BID 0 08/07/2017 08/13/2017 Inactive metronidazole 500 mg tablet RxNorm: 695426 1 Tablet(s) PO BID 08/0708/13/2017 Inactive diltiazem ER 360 mg capsule,24 hr,extended release RxNorm: 8 25475 1 Capsule(s) PO QHS replaces 300mg dose 08/04/2017 01/30/2018 Inactive fenofibrate micronized 134 mg capsule RxNorm: 122019 1 Capsule( s) PO QD 07/21/2017 01/30/2018 Inactive Zocor 40 mg tablet RxNorm: 278301 1 Tablet(s) PO QHS 07/21/201705/10 Inactive GB duloxetine 60 mg capsule,delayed release RxNorm: 096584 Capsule(s) TAKE ONE CAPSULE BY MOUTH ONCE DAILY 06/24/2017 09/24/2017 Inactive Cleocin HCl 300 mg capsule RxNorm: 460535 2 Capsule(s) PO BID 06/0206/08/2017 Inactive acyclovir 800 mg tablet RxNorm: 890151 1 Tablet(s) PO 5x day 201706/08/2017 Inactive diltiazem ER 300 mg capsule,24 hr,extended release RxNorm: 8 25146 1 Capsule(s) PO QHS replaces 240mg dose 05/05/2017 08/03/2017 Inactive ipratropium-albuterol 0.5 mg-3 mg(2.5 mg base)/3 mL ne bulization soln RxNorm: 9479336 1 Unit Dose INH Q4H as needed 05/05/2017 01/04/2019 Inactive metformin ER 1,000 mg tablet,extended release 24hr RxNorm: 1 834497 1 Tablet(s) PO BID 04/28/2017 11/17/2017 Inactive [SAVINGS FOR NON -COVERED DRUGS -- BIN:017060, PCN: ASPROD1, Group: XXXXX, ID# [id number], Questions: . THIS IS NOT INSURANCE.] diltiazem ER (XR/XT) 240 mg capsule,extended release 2 4 hr, controlled RxNorm: 118353 TAKE ONE CAPSULE BY MOUTH EVERY DAY 04/15/2017 05/04/2017 Inact avani prednisone 20 mg tablet RxNorm: 359251 1 Tablet(s) PO QD 04/10/2017 1 06/14/2016 Inactive Breo Ellipta 200 mcg-25 mcg/dose powder for inhalation RxNor m: 7735940 1 Puff(s) INH QD 04/10/2017 02/09/2018 Inactive Breo Ellipta 200 mcg-25 mcg/dose powder for inhalation RxNor m: 1453790 1 Puff(s) INH QD 04/10/2017 04/09/2017 Inactive Levaquin 500 mg tablet RxNorm: 652113 1 Tablet(s) PO QD 04/10/2017 Inactive metoprolol succinate ER 100 mg tablet,extended release 24 hr RxNorm: 608540 TAKE ONE TABLET BY MOUTH TWICE A DAY 03/24/2017 12/18/2017 Inactive fenofibrate micronized 134 mg capsule RxNorm: 639006 1 Capsule( s) PO QD 01/16/2017 07/21/2017 Inactive Benicar HCT 40 mg-25 mg tablet RxNorm: 425386 1 Tablet(s) PO QD 11/17/2017 Inactive [SAVINGS FOR NON-COVERED JESU GS -- BIN:186248, PCN: ASPROD1, Group: XXXXX, ID# [id number], Questions: . THIS IS NOT INSURANCE.] metoprolol succinate ER 100 mg tablet,extended release 24 hr RxNorm: 656406 1 Tablet(s) PO BID 10/16/2016 03/23/2017 Inactive diltiazem ER (XR/XT) 240 mg capsule,extended release 2 4 hr, controlled RxNorm: 248691 1 Capsule(s) PO QD 10/16/2016 04/13/2017 Inactive [SAVINGS FOR NON- COVERED DRUGS -- BIN:902427, PCN: ASPROD1, Group: XXXXX, ID# [id number], Questions: . THIS IS NOT INSURANCE.] metformin ER 1,000 mg tablet,extended release 24hr RxNorm: 8 92601 1 Tablet(s) PO BID 10/16/2016 04/28/2017 Inactive [SAVINGS FOR NON -COVERED DRUGS -- BIN:190205, PCN: ASPROD1, Group: XXXXX, ID# [id number], Questions: . THIS IS NOT INSURANCE.] Zocor 40 mg tablet RxNorm: 891148 1 Tablet(s) PO QHS 10/16/201607/21 Inactive GB Singulair 10 mg tablet RxNorm: 799919 Tablet(s) 1 TABLET(S) PO QHS 08/27/2016 09/02/2018 Inactive prednisone 20 mg tablet RxNorm: 508866 1 Tablet(s) PO QD 08/27/2016 0 08/31/2016 Inactive ipratropium-albuterol 0.5 mg-3 mg(2.5 mg base)/3 mL ne bulization soln RxNorm: 6710260 1 Unit Dose INH Q4H as needed 08/27/2016 05/04/2017 Inactive metoprolol succinate ER 100 mg tablet,extended release 24 hr RxNorm: 632924 TAKE ONE TABLET BY MOUTH TWICE A DAY 08/05/2016 10/16/2016 Inactive duloxetine 60 mg capsule,delayed release RxNorm: 973183 TAKE ONE CAPSULE BY MOUTH ONCE DAILY 08/05/2016 06/24/2017 Inactive prednisone 20 mg tablet RxNorm: 140033 1 Tablet(s) PO QD 06/14/2016 0 06/18/2016 Inactive ipratropium-albuterol 0.5 mg-3 mg(2.5 mg base)/3 mL ne bulization soln RxNorm: 3194596 1 Unit Dose INH Q4H as needed 06/13/2016 08/26/2016 Inactive Levaquin 500 mg tablet RxNorm: 792002 1 Tablet(s) PO QD 06/13/2016 Inactive metoprolol succinate ER 100 mg tablet,extended release 24 hr RxNorm: 028933 1 Tablet(s) PO BID replaces 50mg dose 05/14/2016 07/12/2016 Inactive metoprolol succinate ER 50 mg tablet,extended release 24 hr RxNorm: 229413 1 Tablet(s) PO BID 04/29/2016 05/13/2016 Inactive prednisone 20 mg tablet RxNorm: 380306 1 Tablet(s) PO BID 04/22/2016 04/21/2016 Inactive prednisone 20 mg tablet RxNorm: 262253 1 Tablet(s) PO BID 04/22/2016 04/28/2016 Inactive Singulair 10 mg tablet RxNorm: 417538 Tablet(s) 1 TABLET(S) PO QHS 04/01/2016 08/26/2016 Inactive metoprolol succinate ER 25 mg tablet,extended release 24 hr RxNorm: 606317 1 Tablet(s) PO QHS for blood pressure 04/01/2016 05/13/2016 Inactive fenofibrate micronized 134 mg capsule RxNorm: 575492 TA KE ONE CAPSULE BY MOUTH DAILY 01/25/2016 01/16/2017 Inactive duloxetine 60 mg capsule,delayed release RxNorm: 937405 TAKE ONE CAPSULE BY MOUTH ONCE DAILY 01/25/2016 08/04/2016 Inactive Zocor 40 mg tablet RxNorm: 347880 TAKE ONE TABLET BY MOUTH AT B EDTIME 11/13/2015 10/16/2016 Inactive GB metformin ER 1,000 mg tablet,extended release 24hr RxNorm: 8 90635 1 Tablet(s) PO BID 10/26/2015 10/16/2016 Inactive [SAVINGS FOR NON -COVERED DRUGS -- BIN:334906, PCN: ASPROD1, Group: XXXXX, ID# [id number], Questions: . THIS IS NOT INSURANCE.] Benicar HCT 40 mg-25 mg tablet RxNorm: 050258 1 Tablet(s) PO QD 06/201511/11/2016 Inactive [SAVINGS FOR NON-COVERED JESU GS -- BIN:090857, PCN: ASPROD1, Group: XXXXX, ID# XXXXXXX, Questions: . THIS IS NOT INSURANCE.] diltiazem ER (XR/XT) 240 mg capsule,extended release,control led RxNorm: 282367 1 Capsule(s) PO QD 10/26/2015 10/15/2016 Inactive [SAVINGS FOR NO N-COVERED DRUGS -- BIN:168894, PCN: ASPROD1, Group: XXXXX, ID# [id number], Questions: . THIS IS NOT INSURANCE.] Singulair 10 mg tablet RxNorm: 251483 1 TABLET(S) PO QHS 09/18/2015 1 05/31/2015 Inactive Viagra 100 mg tablet RxNorm: 181266 1 Tablet(s) PO as needed 201511/23/2018 Inactive Singulair 10 mg tablet RxNorm: 222570 1 Tablet(s) PO QHS 08/16/2015 0 08/15/2015 Inactive Singulair 10 mg tablet RxNorm: 754001 1 Tablet(s) PO QHS 08/16/2015 0 09/14/2015 Inactive duloxetine 60 mg capsule,delayed release RxNorm: 394165 1 Capsule(s) PO QD replaces fluoxetine 08/14/2015 01/24/2016 Inactive ipratropium-albuterol 0.5 mg-3 mg(2.5 mg base)/3 mL ne bulization soln RxNorm: 4902037 1 Unit Dose INH Q4H as needed 08/14/2015 06/12/2016 Inactive prednisone 20 mg tablet RxNorm: 448676 Take 3 tabs PO o nce daily x 3 days, then 2 tabs PO once daily x 3 days and then 1 tab PO once daily x 3 days 08/09/2015 08/13/2015 Inactive Symbicort 160 mcg-4.5 mcg/actuation HFA aerosol inhaler RxNo rm: 4517674 2 Puff(s) INH BID 08/09/2015 08/13/2015 Inactive Zocor 40 mg tablet RxNorm: 136483 1 Tablet(s) PO QHS 05/23/201511/11 Inactive [AttnRPh: Saving apply/adjudicate RxGRP: SG20 RxBIN:[id number] RxPCN: ID#:[id number]] Benicar HCT 40 mg-25 mg tablet RxNorm: 991984 1 Tablet(s) PO QD 10/26/2015 Inactive [SAVINGS FOR NON-COVERED JESU GS -- BIN:933158, PCN: ASPROD1, Group: XXXXX, ID# XXXXXXX, Questions: . THIS IS NOT INSURANCE.] diltiazem ER (XR/XT) 240 mg capsule,extended release,control led RxNorm: 330698 1 Capsule(s) PO QD 04/24/2015 10/20/2015 Inactive [SAVINGS FOR NO N-COVERED DRUGS -- BIN:804538, PCN: ASPROD1, Group: XXXXX, ID# XXXXXXX, Questions: . THIS IS NOT INSURANCE.] fluoxetine 40 mg capsule RxNorm: 935945 1 Capsule(s) PO QD 04/24/20 15 08/13/2015 Inactive [SAVINGS FOR NON-COVERED JESU GS -- BIN:090232, PCN: ASPROD1, Group: XXXXX, ID# XXXXXXX, Questions: . THIS IS NOT INSURANCE.] Zocor 40 mg tablet RxNorm: 646046 TABLET(S) 1 TABLET(S) PO QHS 01/2505/23/2015 Inactive [AttnRPh: Saving apply/adjud icate RxGRP:SG20 RxBIN:[id number] RxPCN:HT ID#:[id number]] metformin ER 1,000 mg tablet,extended release 24hr RxNorm: 8 80467 1 TABLET(S) PO BID 01/29/2015 10/26/2015 Inactive [SAVINGS FOR NON -COVERED DRUGS -- BIN:934309, PCN: ASPROD1, Group: XXXXX, ID# XXXXXXX, Questions: . THIS IS NOT INSURANCE.] fenofibrate micronized 134 mg capsule RxNorm: 486096 1 CAPSULE( S) PO QD 01/23/2015 01/17/2016 Inactive fenofibrate micronized 134 mg capsule RxNorm: 720685 1 Capsule( s) PO QD 11/07/2014 01/22/2015 Inactive diltiazem ER (XR/XT) 240 mg capsule,extended release,control led RxNorm: 470265 1 Capsule(s) PO QD 10/24/2014 04/24/2015 Inactive [SAVINGS FOR NO N-COVERED DRUGS -- BIN:019510, PCN: ASPROD1, Group: XXXXX, ID# XXXXXXX, Questions: . THIS IS NOT INSURANCE.] Benicar HCT 40 mg-25 mg tablet RxNorm: 377586 1 Tablet(s) PO QD 05/201404/24/2015 Inactive [SAVINGS FOR NON-COVERED JESU GS -- BIN:411909, PCN: ASPROD1, Group: XXXXX, ID# XXXXXXX, Questions: . THIS IS NOT INSURANCE.] fluoxetine 40 mg capsule RxNorm: 200250 1 Capsule(s) PO QD 10/25/19 15 04/24/2015 Inactive [SAVINGS FOR NON-COVERED JESU GS -- BIN:724608, PCN: ASPROD1, Group: XXXXX, ID# XXXXXXX, Questions: . THIS IS NOT INSURANCE.] azithromycin 500 mg tablet RxNorm: 881570 1 Tablet(s) PO QD 015 09/27/2014 Inactive [SAVINGS FOR NON-COVERED JESU GS -- BIN:391232, PCN: ASPROD1, Group: XXXXX, ID# XXXXXXX, Questions: . THIS IS NOT INSURANCE.] albuterol sulfate 2.5 mg/3 mL (0.083 %) solution for n ebulization RxNorm: 119793 3 Milliliter(s) INH ONE VIAL VIA NEBULIZER EVERY 4 HOURS 015 11/19/2014 Inactive [AttnRPh: Saving apply/adjudicate RxGRP: SG20 RxBIN:[id number] RxPCN: ID#:[id number]] Zocor 40 mg tablet RxNorm: 023568 TABLET(S) 1 TABLET(S ) PO QHS 1 TABLET(S) PO QHS 09/04/2014 02/21/2015 Inactive [AttnRPh: Saving apply/adjudicate RxGRP:SG20 RxBIN:[id number] RxPCN: ID#:[id number]] metformin ER 1,000 mg tablet,extended release 24hr RxNorm: 8 47879 1 Tablet(s) PO BID 08/04/2014 01/28/2015 Inactive [SAVINGS FOR NON -COVERED DRUGS -- BIN:923686, PCN: ASPROD1, Group: XXXXX, ID# XXXXXXX, Questions: . THIS IS NOT INSURANCE.] Bromfed DM 2 mg-30 mg-10 mg/5 mL syrup RxNorm: 8373098 1 -2 Teaspoon(s) PO Q4H as needed for cough 06/10/2014 06/19/2014 Inactive [SAVINGS FOR UN INSURED PATIENTS -- BIN:117694, PCN: ASPROD1, Group: AME08, ID# [id number], Process claim through [employer], for questions: . THIS IS NOT INSURANCE.] Augmentin 875 mg-125 mg tablet RxNorm: 481421 1 Tablet(s) PO Q12H 0 06/10/2014 06/19/2014 Inactive [AttnRPh: Saving apply/adjud icate RxGRP:SG20 RxBIN:[id number] RxPCN: ID#:[id number]] Zocor 40 mg tablet RxNorm: 308454 Tablet(s) 1 TABLET(S ) PO QHS 1 TABLET(S) PO QHS 05/25/2014 08/22/2014 Inactive [AttnRPh: Saving apply/adjudicate RxGRP:SG20 RxBIN:[id number] RxPCN:HT ID#:[id number]] fluoxetine 40 mg capsule RxNorm: 389549 1 Capsule(s) PO QD 04/29/20 14 10/24/2014 Inactive [AttnRPh: Saving apply/adjud icate RxGRP:SG20 RxBIN:[id number] RxPCN:HT ID#:[id number]] diltiazem ER (XR/XT) 240 mg capsule,extended release,control led RxNorm: 051402 1 Capsule(s) PO QD 04/29/2014 10/24/2014 Inactive [AttnRPh: Savin g apply/adjudicate RxGRP:SG20 RxBIN:[id number] RxPCN:HT ID#:[id number]] Benicar HCT 40 mg-25 mg tablet RxNorm: 783501 1 Tablet(s) PO QD 09/201310/24/2014 Inactive [AttnRPh: Saving apply/adjud icate RxGRP:SG20 RxBIN:[id number] RxPCN:HT ID#:[id number]] Zocor 40 mg tablet RxNorm: 095008 1 TABLET(S) PO QHS 1 TABLET(S ) PO QHS 03/07/2014 05/25/2014 Inactive [AttnRPh: Saving chelsie ly/adjudicate RxGRP:SG20 RxBIN:[id number] RxPCN:HT ID#:[id number]] Zocor 40 mg tablet RxNorm: 487114 1 Tablet(s) PO QHS 1 TABLET(S ) PO QHS 12/06/2013 03/05/2014 Inactive [AttnRPh: Saving chelsie ly/adjudicate RxGRP:SG20 RxBIN:[id number] RxPCN:HT ID#:[id number]] diltiazem ER (XR/XT) 240 mg capsule,extended release,control led RxNorm: 556379 1 Capsule(s) PO QD 10/25/2013 04/22/2014 Inactive [AttnRPh: Leonelin g apply/adjudicate RxGRP:SG20 RxBIN:[id number] RxPCN:HT ID#:[id number]] fluoxetine 40 mg capsule RxNorm: 934954 1 Capsule(s) PO QD 10/26/1904/22/2014 Inactive [AttnRPh: Saving apply/adjud icate RxGRP:SG20 RxBIN:[id number] RxPCN:HT ID#:[id number]] Zocor 40 mg tablet RxNorm: 535382 1 Tablet(s) PO QHS 1 TABLET(S ) PO QHS 09/13/2013 12/06/2013 Inactive metformin ER 1,000 mg tablet,extended release 24hr RxNorm: 8 07141 Tablet(s) PO TAKE 1 TABLET BY MOUTH TWICE DAILY (REPLACES 500MG DOSE) 07/26/201303/2015 Inactive diltiazem ER (XR/XT) 240 mg capsule,extended release,control led RxNorm: 801502 1 Capsule(s) PO QD 05/03/2013 10/25/2013 Inactive fluoxetine 40 mg capsule RxNorm: 396983 1 Capsule(s) PO QD 05/03/2010/25/2013 Inactive Benicar HCT 40 mg-25 mg tablet RxNorm: 088900 1 Tablet(s) PO QD 01/201304/29/2014 Inactive Zocor 40 mg tablet RxNorm: 142807 1 Tablet(s) PO QHS 12/10/201209/13 Inactive fluoxetine 40 mg capsule RxNorm: 270690 1 Capsule(s) PO QD 11/10/19 13 05/03/2013 Inactive diltiazem ER (XR/XT) 240 mg capsule,extended release,control led RxNorm: 191579 1 Capsule(s) PO QD 11/09/2012 05/03/2013 Inactive Benicar HCT 40 mg-25 mg tablet RxNorm: 146778 1 Tablet(s) PO QD 05/03/2013 Inactive metformin ER 1,000 mg tablet,extended release 24hr RxNorm: 8 86193 Tablet(s) PO TAKE 1 TABLET BY MOUTH TWICE DAILY (REPLACES 500MG DOSE) 08/05/201206/2013 Inactive Zocor 40 mg tablet RxNorm: 262778 1 Tablet(s) PO QHS 06/15/201212/09 Inactive fluoxetine 40 mg capsule RxNorm: 594013 1 Capsule(s) PO QD 05/15/20 12 11/08/2012 Inactive Neurontin 600 mg Tab RxNorm: 321332 1 Tablet(s) PO QHS 12/03/2011 Inactive metformin ER 1,000 mg tablet,extended release 24hr RxNorm: 8 44410 1 Tablet(s) PO BID replaces 500mg dose 12/03/2011 07/26/2013 Inactive Zocor 40 mg tablet RxNorm: 109090 1 Tablet(s) PO QHS 12/03/201106/15 Inactive fluoxetine 20 mg capsule RxNorm: 279540 1 Capsule(s) PO QD 12/03/19 12 05/24/2012 Inactive diltiazem ER (XR/XT) 240 mg capsule,extended release,control led RxNorm: 456019 1 Capsule(s) PO QD 11/15/2011 11/09/2012 Inactive Benicar HCT 40 mg-25 mg tablet RxNorm: 535991 1 Tablet(s) PO QD 02/16/2012 Inactive metformin ER 500 mg 24 hr Tab RxNorm: 611750 1 Tablet(s) PO BID 12/02/2011 Inactive Zocor 40 mg Tab RxNorm: 782378 1 Tablet(s) PO QHS 05/30/2011 11/25/19 12 Inactive fluoxetine 20 mg Cap RxNorm: 945848 1 Capsule(s) PO QD 05/28/2011 Inactive Neurontin 600 mg Tab RxNorm: 794857 1 Tablet(s) PO QHS 05/28/2011 Inactive Neurontin 600 mg Tab RxNorm: 357431 1 Tablet(s) PO QHS 02/22/201106/2011 Inactive Neurontin 600 mg Tab RxNorm: 748183 1 Tablet(s) PO QHS 01/14/2011 Inactive Neurontin 300 mg Cap RxNorm: 459100 1 Capsule(s) PO QHS 01/14/2011 Inactive Neurontin 600 mg Tab RxNorm: 618178 1 Tablet(s) PO QHS 01/14/2011 Inactive Medrol (Vipul) 4 mg Tabs in a Dose Pack RxNorm: 009656 Tablet(s) PO 0 01/02/2011 08/28/2011 Inactive as directed fluoxetine 20 mg Cap RxNorm: 813452 1 Capsule(s) PO QD 12/10/201006/2011 Inactive Zocor 40 mg Tab RxNorm: 988716 1 Tablet(s) PO QHS 12/03/2010 05/29/19 12 Inactive Neurontin 300 mg Cap RxNorm: 439144 1 Capsule(s) PO QHS 12/03/2010 Inactive Septra DS 800 mg-160 mg Tab RxNorm: 114958 1 Tablet(s) PO BID 11/2912/08/2010 Inactive diltiazem ER (XR/XT) 240 mg Continuous Release Cap RxNorm: 8 09973 1 Capsule(s) PO QD 11/20/2010 11/15/2011 Inactive Neurontin 300 mg Cap RxNorm: 287396 1 Capsule(s) PO QHS 11/06/2010 Inactive Neurontin 300 mg Cap RxNorm: 837318 1 Capsule(s) PO QHS 11/06/2010 Inactive Celebrex 200 mg Cap RxNorm: 376554 1 Capsule(s) PO BID 10/24/2010 Inactive fluoxetine 20 mg Cap RxNorm: 785491 1 Capsule(s) PO QD 06/07/201003/2011 Inactive Zocor 40 mg Tab RxNorm: 828508 1 Tablet(s) PO QHS 06/05/2010 12/02/19 11 Inactive Benicar HCT 40 mg-25 mg Tab RxNorm: 205769 1 Tablet(s) PO QD 200908/21/2011 Inactive Diltiazem 240 mg Continuous Release Cap RxNorm: 810943 1 Capsul e(s) PO QD 11/09/2009 09/02/2018 Inactive Avelox 400 mg Tab RxNorm: 707121 1 Tablet(s) PO QD 08/22/2009 010 Inactive ProAir HFA 90 mcg/actuation aerosol inhaler RxNorm: 131168 2 Puff(s) INH Q4H as needed No Start Date Active tramadol 50 mg tablet RxNorm: 369644 1-2 Tablet(s) PO TID as ne eded for pain No Start Date Active Tylenol Arthritis 650 mg Tab RxNorm: 9862454 2 Tablet(s) PO QD No Sta rt Date Active Celebrex 200 mg Cap RxNorm: 451191 1 Capsule(s) PO BID No Start Date 08/08/2015 Inactive Medrol (Vipul) 4 mg Tabs in a Dose Pack RxNorm: 852139 Tablet(s) PO N o Start Date 01/01/2011 Inactive as directed Promethazine-DM 6.25 mg-15 mg/5 mL Syrup RxNorm: 533242 1-2 Teaspoon(s) PO Q4H prn cough No Start Date 08/28/2011 Inactive Claritin 10 mg tablet RxNorm: 974048 1 Tablet(s) PO QD No Start Date 08/08/2015 Inactive Nxaedutthl-Firsb-TOH-James-115HC Oral RxNorm: Oral No Start Da te 03/28/2019 Inactive Breo Ellipta 200 mcg-25 mcg/dose powder for inhalation RxNor m: 8371229 1 Puff(s) INH QD No Start Date 04/09/2017 Inactive metformin 500 mg Tab RxNorm: 828921 1 Tablet(s) PO QD No Start Date 0 08/17/2011 Inactive Diltiazem 240 mg Continuous Release Cap RxNorm: 104606 1 Capsul e(s) PO BID No Start Date 11/08/2009 Inactive fluoxetine 20 mg Cap RxNorm: 137048 1 Capsule(s) PO QD No Start Date 06/07/2010 Inactive Multivitamin & Mineral Formula Oral RxNorm: Oral No Start Da te 03/28/2019 Inactive Medrol (Vipul) 4 mg tablets in a dose pack RxNorm: 708331 Tablet(s) PO as directed No Start Date 05/28/2012 Inactive Fish Oil 1,000 mg Cap RxNorm: 1 Capsule(s) PO QD No Start Date 07/2018 Inactive Nexium 40 mg Cap RxNorm: 690275 1 Capsule(s) PO QD No Start Date 07/24 Inactive fluticasone 50 mcg/actuation nasal spray,suspension RxNorm: 9518057 [address] [place] NASAL QD to each nostril No Start Date 08/03/2017 Inactive Viagra 100 mg tablet RxNorm: 654897 1 Tablet(s) PO as needed No Sta rt Date 09/17/2015 Inactive prednisone 20 mg tablet RxNorm: 537002 1 Tablet(s) PO B ID for 4 days then 1 po daily for 4 days No Start Date 11/23/2018 Inactive Benicar HCT 40 mg-25 mg Tab RxNorm: 291232 1 Tablet(s) PO QD No Sta rt [...] Date S ervice Location MICROALBUMIN URINE RANDOM 73881 MICRL MG/L 5.8 MG/L 03/2011 Unknown MICROALBUMIN URINE RANDOM 93278 XM.ALB/CRE 5.2 MG/GCR Unknown MICROALBUMIN URINE RANDOM 87907 CREAT MG/D 111 MG/DL 03/2011 Unknown MICROALBUMIN URINE RANDOM 76225 CRE/100 1.11 G/L 12/24 Unknown Procedures Procedure Codes Date FLU VACC PRSV FREE INC ANTIG 65 AND OLDER CPT-4: 89352 03/04/2019 ADMIN PNEUMOCOCCAL VACCINE CPT-4: G0009 03/04/2019 ADMIN INFLUENZA VIRUS VAC CPT-4: G0008 03/04/2019 FLU VACC PRSV FREE INC ANTIG 65 AND OLDER CPT-4: 86051 03/04/2019 PNEUMOCOCCAL VACC 23 RAYMON IM CPT-4: 43653 03/04/2019 THER/PROPH/DIAG INJ SC/IM CPT-4: 76960 08/11/2018 TRIAMCINOLONE ACET INJ NOS CPT-4: J3301 08/11/2018 DEXAMETHASONE SODIUM PHOS CPT-4: J1100 08/11/2018 THER/PROPH/DIAG INJ SC/IM CPT-4: 28213 07/16/2018 METHYLPREDNISOLONE INJECTION CPT-4: J2930 07/16/2018 INFLUENZA ASSAY W/OPTIC CPT-4: 79006 07/16/2018 THER/PROPH/DIAG INJ SC/IM CPT-4: 25381 07/13/2018 TRIAMCINOLONE ACET INJ NOS CPT-4: J3301 07/13/2018 THER/PROPH/DIAG INJ SC/IM CPT-4: 29100 05/04/2018 METHYLPREDNISOLONE INJECTION CPT-4: J2930 05/04/2018 FLU VACC PRSV FREE INC ANTIG 65 AND OLDER CPT-4: 03163 02/10/2018 PNEUMOCOCCAL VACC 13 RAYMON IM CPT-4: 15414 02/10/2018 ADMIN INFLUENZA VIRUS VAC CPT-4: G0008 02/10/2018 ADMIN PNEUMOCOCCAL VACCINE CPT-4: G0009 02/10/2018 THER/PROPH/DIAG INJ SC/IM CPT-4: 52630 09/09/2017 TRIAMCINOLONE ACET INJ NOS CPT-4: J3301 09/09/2017 ALBUTEROL NON-COMP UNIT CPT-4: J7613 04/10/2017 AIRWAY INHALATION TREATMENT CPT-4: 88832 04/10/2017 PRESCRIP TRANSMIT VIA ERX SY CPT-4: G8553 04/10/2017 FLU VACC PRSV FREE INC ANTIG 65 AND OLDER CPT-4: 71152 03/28/2017 ADMIN INFLUENZA VIRUS VAC CPT-4: G0008 03/28/2017 PRESCRIP TRANSMIT VIA ERX SY CPT-4: G8553 08/27/2016 PRESCRIP TRANSMIT VIA ERX SY CPT-4: G8553 06/14/2016 ALBUTEROL NON-COMP UNIT CPT-4: J7613 06/13/2016 AIRWAY INHALATION TREATMENT CPT-4: 25861 06/13/2016 PRESCRIP TRANSMIT VIA ERX SY CPT-4: [...] CPT-4: G8553 11/07/2014 THER/PROPH/DIAG INJ SC/IM CPT-4: 83176 09/21/2014 METHYLPREDNISOLONE INJECTION CPT-4: J2930 09/21/2014 PRESCRIP TRANSMIT VIA ERX SY CPT-4: G8553 09/21/2014 PRESCRIP TRANSMIT VIA ERX SY CPT-4: G8553 06/10/2014 URINALYSIS NONAUTO W/O SCOPE CPT-4: 58859 06/01/2012 PRESCRIP TRANSMIT VIA ERX SY CPT-4: G8553 05/25/2012 PRESCRIP TRANSMIT VIA ERX SY CPT-4: G8553 12/03/2011 CUR TOBACCO NON-USER CPT-4: G8457 05/30/2011 PRESCRIP TRANSMIT VIA ERX SY CPT-4: G8553 05/30/2011 URINALYSIS NONAUTO W/O SCOPE CPT-4: 85979 01/01/2011 URINE CULTURE/ COLONY COUNT CPT-4: 84588 01/01/2011 CUR TOBACCO NON-USER CPT-4: G8457 01/01/2011 [...] 1: 114/68 Code: 8480-6 BMI: 43.5 Code: 10041-9 Heart Rate 1: 52 bpm Height: 6'1" [...] 1: 136/72 Code: 8480-6 BMI: 42.7 Code: 08554-0 Heart Rate 1: 60 bpm Height: 6'1" Respiratory Rate: 22 bpm SpO2: 95% Tempera ture: 37.1 (C) / 98.7 (F) Weight: 324 lbs 02/10/2018 Blood Pressure 1: 146/78 Code: 8480-6 BMI: 42.4 Code: 61307-7 Heart Rate 1: 64 bpm Height: 6'1" Respiratory Rate: 22 bpm SpO2: 95% Tempera ture: 36.5 (C) / 97.7 (F) Weight: 321 lbs 11/05/2017 Blood Pressure 1: 128/84 Code: 8480-6 BMI: 42.9 Code: 62162-3 Heart Rate 1: 52 bpm Height: 6'1" Respiratory Rate: 22 bpm SpO2: 95% Tempera ture: 36.3 (C) / 97.3 (F) Weight: 325 lbs 09/09/2017 Blood Pressure 1: 162/90 Code: 8480-6 BMI: 42.5 Code: 73895-0 Heart Rate 1: 60 bpm Height: 6'1" Respiratory Rate: 24 bpm SpO2: 95% Tempera ture: 36.4 (C) / 97.6 (F) Weight: 322 lbs 08/07/2017 Blood Pressure 1: 152/90 Code: 8480-6 BMI: 42.2 Code: 64321-7 Heart Rate 1: 60 bpm Height: 6'1" Respiratory Rate: 26 bpm SpO2: 94% Tempera ture: 36.6 (C) / 97.8 (F) Weight: 320 lbs 08/04/2017 Blood Pressure 1: 150/86 Code: 8480-6 BMI: 42.7 Code: 60375-5 Heart Rate 1: 64 bpm Height: 6'1" Respiratory Rate: 20 bpm SpO2: 94% Tempera ture: 36.3 (C) / 97.3 (F) Weight: 324 lbs 06/04/2017 Blood Pressure 1: 164/90 Code: 8480-6 Heart Rate 1: 60 bpm Respiratory Rate: 24 bpm SpO2: 94% Temperature: 36.8 (C) / 98.3 (F) 06/02/2017 Blood Pressure 1: 162/80 Code: 8480-6 BMI: 42.9 Code: 73855-8 Heart Rate 1: 66 bpm Height: 6'1" Respiratory Rate: 22 bpm SpO2: 98% Tempera ture: 36.6 (C) / 97.8 (F) Weight: 325 lbs 05/05/2017 Blood Pressure 1: 164/94 Code: 8480-6 BMI: 41.4 Code: 23126-7 Heart Rate 1: 64 bpm Height: 6'1" Respiratory Rate: 22 bpm SpO2: 95% Tempera ture: 36.4 (C) / 97.5 (F) Weight: 314 lbs 04/10/2017 Blood Pressure 1: 136/78 Code: 8480-6 BMI: 42.0 Code: 58166-9 Heart Rate 1: 76 bpm Height: 6'1" Respiratory Rate: 24 bpm SpO2: 92% Tempera ture: 35.9 (C) / 96.7 (F) Weight: 318 lbs 02/03/2017 Blood Pressure 1: 134/82 Code: 8480-6 BMI: 41.7 Code: 45832-7 Heart Rate 1: 72 bpm Height: 6'1" Respiratory Rate: 24 bpm SpO2: 95% Tempera ture: 36.1 (C) / 97.0 (F) Weight: 316 lbs 10/30/2016 Blood Pressure 1: 126/74 Code: 8480-6 BMI: 41.3 Code: 10073-0 Heart Rate 1: 68 bpm Height: 6'1" Respiratory Rate: 20 bpm Temperature: 37 .1 (C) / 98.8 (F) Weight: 313 lbs 08/30/2016 Blood Pressure 1: 146/80 Code: 8480-6 BMI: 41.7 Code: 74124-0 Heart Rate 1: 64 bpm Height: 6'1" Respiratory Rate: 24 bpm SpO2: 94% Tempera ture: 36.6 (C) / 97.8 (F) Weight: 316 lbs 08/27/2016 Blood Pressure 1: 12478 Code: 8480-6 Heart Rate 1: 66 bpm Height: 6'2" Respiratory Rate: 18 bpm SpO2: 94% Temperature: 36.6 (C) / 97.8 (F) Weight: 07/02/2016 Blood Pressure 1: 126/78 Code: 8480-6 BMI: 41.4 Code: 62739-9 Heart Rate 1: 68 bpm Height: 6'1" Respiratory Rate: 24 bpm SpO2: 94% Tempera ture: 36.6 (C) / 97.8 (F) Weight: 314 lbs 06/14/2016 Blood Pressure 1: 146/82 Code: 8480-6 Heart Rate 1: 80 bpm Respiratory Rate: 20 bpm SpO2: 95% Temperature: 37.3 (C) / 99.2 (F) 06/13/2016 Blood Pressure 1: 146/84 Code: 8480-6 BMI: 40.5 Code: 97788-4 Heart Rate 1: 66 bpm Height: 6'1" Respiratory Rate: 28 bpm SpO2: 93% Tempera ture: 35.8 (C) / 96.4 (F) Weight: 307 lbs 05/14/2016 Blood Pressure 1: 146/90 Code: 8480-6 BMI: 41.2 Code: 37651-3 Heart Rate 1: 68 bpm Height: 6'1" Respiratory Rate: 26 bpm Temperature: 36 .8 (C) / 98.2 (F) Weight: 312 lbs 04/29/2016 Blood Pressure 1: 152/90 Code: 8480-6 BMI: 41.0 Code: 74772-3 Heart Rate 1: 68 bpm Height: 6'1" Respiratory Rate: 26 bpm SpO2: 94% Tempera ture: 36.1 (C) / 96.9 (F) Weight: 311 lbs 04/22/2016 Blood Pressure 1: 152/94 Code: 8480-6 BMI: 40.9 Code: 66951-6 Heart Rate 1: 68 bpm Height: 6'1" Respiratory Rate: 24 bpm SpO2: 94% Tempera ture: 36.2 (C) / 97.2 (F) Weight: 310 lbs 04/01/2016 Blood Pressure 1: 156/78 Code: 8480-6 BMI: 40.6 Code: 74551-8 Heart Rate 1: 84 bpm Height: 6'1" Respiratory Rate: 22 bpm SpO2: 95% Tempera ture: 37.1 (C) / 98.7 (F) Weight: 308 lbs 11/30/2015 Blood Pressure 1: 142/80 Code: 8480-6 BMI: 40.5 Code: 00666-6 Heart Rate 1: 88 bpm Height: 6'1" Respiratory Rate: 22 bpm Temperature: 36 .2 (C) / 97.2 (F) Weight: 307 lbs 08/29/2015 Blood Pressure 1: 132/70 Code: 8480-6 BMI: 40.0 Code: 85081-2 Heart Rate 1: 76 bpm Height: 6'1" Respiratory Rate: 24 bpm SpO2: 96% Tempera ture: 36.7 (C) / 98.0 (F) Weight: 303 lbs 08/14/2015 Blood Pressure 1: 126/80 Code: 8480-6 BMI: 39.4 Code: 14200-5 Heart Rate 1: 92 bpm Height: 6'1" Respiratory Rate: 24 bpm SpO2: 94% Tempera ture: 37.8 (C) / 100.0 (F) Weight: 299 lbs 08/09/2015 Blood Pressure 1: 146/82 Code: 8480-6 Heart Rate 1: 82 bpm Respiratory Rate: 22 bpm SpO2: 93% Temperature: 35.9 (C) / 96.6 (F) We ight: 310 lbs 05/22/2015 Blood Pressure 1: 156/76 Code: 8480-6 BMI: 41.0 Code: 35272-0 Heart Rate 1: 100 bpm Height: 6'1" Respiratory Rate: 22 bpm Temperature: 37 .2 (C) / 98.9 (F) Weight: 311 lbs 02/13/2015 Blood Pressure 1: 166/90 Code: 8480-6 BMI: 41.2 Code: 20533-1 Heart Rate 1: 72 bpm Height: 6'1" Respiratory Rate: 24 bpm SpO2: 93% Tempera ture: 36.9 (C) / 98.5 (F) Weight: 312 lbs 11/07/2014 Blood Pressure 1: 134/70 Code: 8480-6 BMI: 40.5 Code: 49269-9 Heart Rate 1: 76 bpm Height: 6'1" Respiratory Rate: 24 bpm Temperature: 36 .9 (C) / 98.4 (F) Weight: 307 lbs 10/04/2014 Blood Pressure 1: 144/86 Code: 8480-6 BMI: 40.1 Code: 71578-6 Heart Rate 1: 76 bpm Height: 6'1" Respiratory Rate: 28 bpm Temperature: 36 .6 (C) / 97.9 (F) Weight: 304 lbs 09/22/2014 Blood Pressure 1: 142/80 Code: 8480-6 BMI: 40.0 Code: 49731-8 Heart Rate 1: 80 bpm Height: 6'1" Respiratory Rate: 22 bpm SpO2: 96% Tempera ture: 36.6 (C) / 97.8 (F) Weight: 303 lbs 09/21/2014 Blood Pressure 1: 160/66 Code: 8480-6 BMI: 40.0 Code: 67358-7 Heart Rate 1: 90 bpm Height: 6'1" Respiratory Rate: 26 bpm SpO2: 94% Tempera ture: 35.7 (C) / 96.2 (F) Weight: 303 lbs 06/28/2014 Blood Pressure 1: 132/80 Code: 8480-6 BMI: 41.0 Code: 50787-0 Heart Rate 1: 64 bpm Height: 6' Respiratory Rate: 20 bpm Temperature: 36 .7 (C) / 98.0 (F) Weight: 302 lbs 06/10/2014 Blood Pressure 1: 152/70 Code: 8480-6 BMI: 41.1 Code: 51097-4 Heart Rate 1: 76 bpm Height: 6' Respiratory Rate: 20 bpm Temperature: 36 .6 (C) / 97.8 (F) Weight: 303 lbs 03/29/2014 Blood Pressure 1: 132/78 Code: 8480-6 BMI: 40.6 Code: 40536-0 Heart Rate 1: 84 bpm Height: 6' Respiratory Rate: 22 bpm Temperature: 37 .1 (C) / 98.8 (F) Weight: 299 lbs 11/30/2013 Blood Pressure 1: 136/84 Code: 8480-6 BMI: 39.2 Code: 53970-5 Heart Rate 1: 76 bpm Height: 6' Respiratory Rate: 20 bpm Temperature: 36 .8 (C) / 98.2 (F) Weight: 289 lbs 08/03/2013 Blood Pressure 1: 144/80 Code: 8480-6 Heart Rate 1: 86 bpm Respiratory Rate: 20 bpm Temperature: 36.6 (C) / 97.8 (F) Weight: 296 lbs 04/06/2013 Blood Pressure 1: 142/90 Code: 8480-6 BMI: 40.3 Code: 18965-5 Heart Rate 1: 88 bpm Height: 6' Respiratory Rate: 20 bpm Temperature: 36 .6 (C) / 97.8 (F) Weight: 297 lbs 12/01/2012 Blood Pressure 1: 124/78 Code: 8480-6 BMI: 38.7 Code: 75626-9 Heart Rate 1: 76 bpm Height: 6' Respiratory Rate: 20 bpm Temperature: 37 .2 (C) / 98.9 (F) Weight: 285 lbs 08/04/2012 Blood Pressure 1: 128/80 Code: 8480-6 BMI: 38.2 Code: 97669-4 Heart Rate 1: 76 bpm Height: 6' Respiratory Rate: 20 bpm Temperature: 37 .0 (C) / 98.6 (F) Weight: 282 lbs 05/29/2012 Blood Pressure 1: 138/78 Code: 8480-6 BMI: 36.6 Code: 35126-7 Heart Rate 1: 66 bpm Height: 6' Temperature: 36.7 (C) / 98.1 (F) Weight: 270 lbs 05/25/2012 Blood Pressure 1: 128/72 Code: 8480-6 BMI: 39.9 Code: 89881-4 Heart Rate 1: 74 bpm Height: 6' Temperature: 36.1 (C) / 97.0 (F) Weight: 294 lbs 04/07/2012 Blood Pressure 1: 124/76 Code: 8480-6 BMI: 39.9 Code: 93975-6 Heart Rate 1: 72 bpm Height: 6' Respiratory Rate: 20 bpm Temperature: 36 .9 (C) / 98.5 (F) Weight: 294 lbs 12/16/2011 Blood Pressure 1: 128/80 Code: 8480-6 BMI: 40.8 Code: 05172-9 Heart Rate 1: 74 bpm Height: 6' Temperature: 36.6 (C) / 97.8 (F) Weight: 301 lbs 12/03/2011 Blood Pressure 1: 132/76 Code: 8480-6 BMI: 40.8 Code: 90589-2 Heart Rate 1: 68 bpm Height: 6' Respiratory Rate: 20 bpm Temperature: 36 .8 (C) / 98.2 (F) Weight: 301 lbs 08/29/2011 Blood Pressure 1: 140/68 Code: 8480-6 BMI: 40.8 Code: 56616-5 Heart Rate 1: 80 bpm Height: 6' Respiratory Rate: 20 bpm Temperature: 36 .4 (C) / 97.6 (F) Weight: 301 lbs 05/30/2011 Blood Pressure 1: 134/82 Code: 8480-6 BMI: 41.5 Code: 81325-1 Heart Rate 1: 76 bpm Height: 6' [...] 1: 126/72 Code: 8480-6 BMI: 41.2 Code: 54191-1 Heart Rate 1: 76 bpm Height: 6' [...] 1: 152/90 Code: 8480-6 BMI: 37.7 Code: 50945-2 Heart Rate 1: 92 bpm Height: 6'1" Temperature: 38.3 (C) / 101.0 (F) Weight : 286 lbs Functional Status No Functional Status data Reason For Visit Reason For Visit Effective Dates Notes follow up 08/30/2019 Discuss karleneir laura erapy follow up 08/10/2019 cellulitis 07/06/2019 follow [...] dm Encounters Encounter Performer Location Codes Date ([id number]) OFFICE/OUTPATIENT VISIT EST Diagnosis: Chronic obstructive pulmonary disease, unspecified[ICD10: J44.9] Diagnosis: Essential (primary) hypertension[ICD10: I10] Diagnosis: Mixed hyperlipidemia[ICD10: E78.2] Diagnosis: Type 2 diabetes mellitus with hyperglycemia[ICD10: E11.65] Neela Cunningham Generate CPT-4: 81246 08/30/2019 ([id number]) OFFICE/OUTPATIENT VISIT EST Diagnosis: Chronic obstructive pulmonary disease with (acute) exacerbation[ICD10: J44.1] Neela Cunningham Generate CPT- 4: 13893 08/10/2019 ([id number]) OFFICE/OUTPATIENT VISIT EST Diagnosis: Sore on toe[ICD10: L98.9] Neela Cunningham [employer] CHRISTINA [employer] CPT-4: 62163 07/06/2019 ([id number]) OFFICE/OUTPATIENT VISIT EST Diagnosis: Advanced chronic obstructive pulmonary disease[ICD10: J44.9] 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] Neela HORAN UBIKODMendez Generate CPT-4: 40424 05/10/2019 ([id number]) OFFICE/OUTPATIENT VISIT EST Diagnosis: Chronic obstructive pulmonary disease with (acute) exacerbation[ICD10: J44.1] Diagnosis: Hypokalemia[ICD10: E87.6] 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] Neela HYMAN [facility] CPT-4: 29459 03/29/2019 ([id number]) NURSE/OUTPATIENT VISIT EST Diagnosis: PNEUMOCOCCAL VACCINE[ICD10: Z23] Neela HYMAN DO [facility] CPT-4: 03154 03/04/2019 ([id number]) OFFICE/OUTPATIENT VISIT EST Diagnosis: Chronic obstructive pulmonary disease with (acute) exacerbation[ICD10: J44.1] Diagnosis: Other nonspecific abnormal finding of lung field[ICD10: R91.8] Neela HYMAN DO [facility] CPT-4: 09176 01/05/2019 ([id number]) OFFICE/OUTPATIENT VISIT EST Diagnosis: Solitary pulmonary nodule[ICD10: R91.1] 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] Diagnosis: Tinea corporis[ICD10: B35.4] Neela HYMAN [facility] CPT-4: 19392 12/09/2018 ([id number]) OFFICE/OUTPATIENT VISIT EST Diagnosis: COUGH[ICD10: R05] Diagnosis: Chronic obstructive pulmonary disease, unspecified[ICD10: J44.9] Diagnosis: Other disorders of lung[ICD10: J98.4] Diagnosis: Other nonspecific abnormal finding of lung field[ICD10: R91.8] Neela HYMAN [facility] CPT-4: 50374 11/24/2018 ([id number]) OFFICE/OUTPATIENT VISIT EST Diagnosis: Pneumonia, unspecified organism[ICD10: J18.9] Amita Henderson NEELA HYMAN DO [facility] CPT-4: 64775 09/16/2018 ([id number]) OFFICE/OUTPATIENT VISIT EST Diagnosis: Pneumonia, unspecified organism[ICD10: J18.9] Neela HYMAN [facility] CPT-4: 94905 09/03/2018 ([id number]) OFFICE/OUTPATIENT VISIT EST Diagnosis: Personal history of pneumonia (recurrent)[ICD10: Z87.01] Diagnosis: Cough[ICD10: R05] Diagnosis: Essential (primary) hypertension[ICD10: I10] Diagnosis: Type 2 diabetes mellitus with hyperglycemia[ICD10: E11.65] Amita Henderson NEELA Octavio HYMAN [employer] [facility] CPT-4: 45906 08/27/2018 OFFICE/OUTPATIENT VISIT EST Diagnosis: Pneumonia, unspecified organism[ICD10: J18.9] Diagnosis: Chronic obstructive pulmonary disease with (acute) exacerbation[ICD10: J44.1] Diagnosis: Other specified symptoms and signs involving the circulatory and respiratory systems[ICD10: R09.89] Diagnosis: Essential (primary) hypertension[ICD10: I10] Amita Henderson NEELA Octavio LAWLERgantto [employer] [facility] CPT-4: 62797 08/13/2018 OFFICE/OUTPATIENT VISIT EST Diagnosis: Pneumonia, unspecified organism[ICD10: J18.9] Diagnosis: Other specified symptoms and signs involving the circulatory and respiratory systems[ICD10: R09.89] Amita Santiago NEELA Octavio ZHANG [employer] [facility] CPT-4: 69395 08/11/2018 ([id number]) OFFICE/OUTPATIENT VISIT EST Diagnosis: Dyspnea, unspecified[ICD10: R06.00] Diagnosis: Chronic obstructive pulmonary disease with (acute) exacerbation[ICD10: J44.1] Diagnosis: Pneumonia, unspecified organism[ICD10: J18.9] Amita Henderson NEELA Octavio ZHANG [employer] [facility] CPT-4: 15596 07/16/2018 ([id number]) OFFICE/OUTPATIENT VISIT EST Diagnosis: Acute bronchitis due to other specified organisms[ICD10: J20.8] Diagnosis: Cough[ICD10: R05] Amita MIRZALINE Octavio LAWLERgantto [employer] [facility] T-4: 50683 07/13/2018 ([id number]) OFFICE/OUTPATIENT VISIT EST Diagnosis: Essential (primary) hypertension[ICD10: I10] Diagnosis: Chronic obstructive pulmonary disease, unspecified[ICD10: J44.9] Diagnosis: Type 2 diabetes mellitus with hyperglycemia[ICD10: E11.65] Diagnosis: Mixed hyperlipidemia[ICD10: E78.2] Neela STERLING UBIKOD [employer] [facility] CPT-4: 57803 06/03/2018 ([id number]) OFFICE/OUTPATIENT VISIT EST Diagnosis: Chronic obstructive pulmonary disease, unspecified[ICD10: J44.9] Gely HYMAN DO [facility] CPT-4: 19051 05/04/2018 ([id number]) OFFICE/OUTPATIENT VISIT EST Diagnosis: Essential (primary) hypertension[ICD10: I10] Diagnosis: Localized edema[ICD10: R60.0] Neela HYMAN DO [facility] CPT-4: 68479 03/03/2018 ([id number]) OFFICE/OUTPATIENT VISIT EST Diagnosis: Localized edema[ICD10: R60.0] Neela HYMAN DO [facility] CPT-4: 06746 02/17/2018 ([id number]) OFFICE/OUTPATIENT VISIT EST Diagnosis: FLU VACCINE[ICD10: Z23] Diagnosis: PNEUMOCOCCAL VACCINE[ICD10: Z23] Diagnosis: Type 2 diabetes mellitus without complications[ICD10: E11.9] Diagnosis: Mixed hyperlipidemia[ICD10: E78.2] Diagnosis: Essential (primary) hypertension[ICD10: I10] Diagnosis: Localized edema[ICD10: R60.0] Diagnosis: Chronic obstructive pulmonary disease, unspecified[ICD10: J44.9] Neela HYMAN DO [facility] CPT-4: 84520 02/10/2018 ([id number]) OFFICE/OUTPATIENT VISIT EST Diagnosis: Type 2 diabetes mellitus with hyperglycemia[ICD10: E11.65] Diagnosis: Mixed hyperlipidemia[ICD10: E78.2] Diagnosis: Essential (primary) hypertension[ICD10: I10] Diagnosis: Chronic obstructive pulmonary disease, unspecified[ICD10: J44.9] Diagnosis: Cutaneous abscess of back [any part, except buttock][ICD10: L02.212] Neela HYMAN [employer] [facility] CPT-4: 02155 11/05/2017 ([id number]) OFFICE/OUTPATIENT VISIT EST Diagnosis: Allergic urticaria[ICD10: L50.0] Gely HYMAN DO [facility] CPT-4: 07487 09/09/2017 ([id number]) OFFICE/OUTPATIENT VISIT EST Diagnosis: Generalized enlarged lymph nodes[ICD10: R59.1] Diagnosis: Acute gastritis without bleeding[ICD10: K29.00] Gely HYMAN DO [facility] CPT-4: 47490 08/07/2017 ([id number]) OFFICE/OUTPATIENT VISIT EST Diagnosis: Type 2 diabetes mellitus without complications[ICD10: E11.9] Diagnosis: Mixed hyperlipidemia[ICD10: E78.2] Diagnosis: Essential (primary) hypertension[ICD10: I10] Neela HYMAN DO [facility] CPT-4: 15970 08/04/2017 ([id number]) OFFICE/OUTPATIENT VISIT EST Diagnosis: Zoster without complications[ICD10: B02.9] Diagnosis: Acute sialoadenitis[ICD10: K11.21] Gely HYMAN DO [facility] CPT-4: 69275 06/04/2017 OFFICE/OUTPATIENT VISIT EST Diagnosis: Zoster without complications[ICD10: B02.9] Diagnosis: Acute sialoadenitis[ICD10: K11.21] Gely HYMAN DO [facility] CPT-4: 16926 06/02/2017 ([id number]) OFFICE/OUTPATIENT VISIT EST Diagnosis: Type 2 diabetes mellitus without complications[ICD10: E11.9] Diagnosis: Mixed hyperlipidemia[ICD10: E78.2] Diagnosis: Essential (primary) hypertension[ICD10: I10] Diagnosis: Chronic obstructive pulmonary disease, unspecified[ICD10: J44.9] Neela HYMAN DO [facility] CPT-4: 81742 05/05/2017 OFFICE/OUTPATIENT VISIT EST Diagnosis: Chronic obstructive pulmonary disease with acute lower respiratory infection[ICD10: J44.0] Diagnosis: Impacted cerumen, bilateral[ICD10: H61.23] Gely HYMAN DO [facility] CPT-4: 85835 04/10/2017 ([id number]) OFFICE/OUTPATIENT VISIT EST Diagnosis: FLU VACCINE[ICD10: Z23] Neela BUI [facility] CPT-4: 35285 03/28/2017 ([id number]) OFFICE/OUTPATIENT VISIT EST Diagnosis: Type 2 diabetes mellitus without complications[ICD10: E11.9] Diagnosis: Mixed hyperlipidemia[ICD10: E78.2] Diagnosis: Essential (primary) hypertension[ICD10: I10] Diagnosis: Chronic obstructive pulmonary disease, unspecified[ICD10: J44.9] Neela HYMAN DO [facility] CPT-4: 92907 02/03/2017 ([id number]) OFFICE/OUTPATIENT VISIT EST Diagnosis: Type 2 diabetes mellitus with hyperglycemia[ICD10: E11.65] Diagnosis: Mixed hyperlipidemia[ICD10: E78.2] Diagnosis: Essential (primary) hypertension[ICD10: I10] Diagnosis: Chronic obstructive pulmonary disease, unspecified[ICD10: J44.9] Neela HYMAN [employer] [facility] CPT-4: 41029 10/30/2016 ([id number]) NO CHARGE Diagnosis: Acute bronchitis, unspecified[ICD10: J20.9] Sammi HYMAN [employer] [facility] CPT-4: 88752 08/30/2016 ([id number]) OFFICE/OUTPATIENT VISIT EST Diagnosis: Acute bronchitis, unspecified[ICD10: J20.9] Diagnosis: Other seasonal allergic rhinitis[ICD10: J30.2] Sammi HYMAN [facility] CPT-4: 86838 08/27/2016 ([id number]) OFFICE/OUTPATIENT VISIT EST Diagnosis: Type 2 diabetes mellitus without complications[ICD10: E11.9] Diagnosis: Mixed hyperlipidemia[ICD10: E78.2] Diagnosis: Essential (primary) hypertension[ICD10: I10] Neela HYMAN [facility] CPT-4: 93800 07/02/2016 ([id number]) OFFICE/OUTPATIENT VISIT EST Diagnosis: Acute bronchitis, unspecified[ICD10: J20.9] Sammi HYMAN [facility] CPT-4: 35207 06/14/2016 ([id number]) OFFICE/OUTPATIENT VISIT EST Diagnosis: Acute bronchitis, unspecified[ICD10: J20.9] Sammi HYMAN DO [facility] CPT-4: 21174 06/13/2016 ([id number]) OFFICE/OUTPATIENT VISIT EST Diagnosis: Essential (primary) hypertension[ICD10: I10] Neela HYMAN [facility] CPT-4: 92920 05/14/2016 ([id number]) OFFICE/OUTPATIENT VISIT EST Diagnosis: Essential (primary) hypertension[ICD10: I10] Neela HYMAN DO [facility] CPT-4: 57346 04/29/2016 ([id number]) OFFICE/OUTPATIENT VISIT EST Diagnosis: Unspecified abdominal pain[ICD10: R10.9] Diagnosis: Left lower quadrant pain[ICD10: R10.32] Diagnosis: Left upper quadrant pain[ICD10: R10.12] Diagnosis: Essential (primary) hypertension[ICD10: I10] Neela HYMAN DO [facility] CPT-4: 21461 04/22/2016 ([id number]) OFFICE/OUTPATIENT VISIT EST Diagnosis: Type 2 diabetes mellitus without complications[ICD10: E11.9] Diagnosis: Mixed hyperlipidemia[ICD10: E78.2] Diagnosis: Essential (primary) hypertension[ICD10: I10] Neela HYMAN DO [facility] CPT-4: 17434 04/01/2016 ([id number]) OFFICE/OUTPATIENT VISIT EST Diagnosis: Type 2 diabetes mellitus with hyperglycemia[ICD10: E11.65] Diagnosis: Mixed hyperlipidemia[ICD10: E78.2] Diagnosis: Essential (primary) hypertension[ICD10: I10] Neela HYMAN DO [facility] CPT-4: 99713 11/30/2015 ([id number]) OFFICE/OUTPATIENT VISIT EST Diagnosis: Type 2 diabetes mellitus with diabetic neuropathy, unspecified[ICD10: E11.40] Diagnosis: Essential (primary) hypertension[ICD10: I10] Diagnosis: Mixed hyperlipidemia[ICD10: E78.2] Neela HYMAN Tocagen [facility] CPT-4: 32822 08/29/2015 ([id number]) OFFICE/OUTPATIENT VISIT EST Diagnosis: COUGH[ICD10: R05] Diagnosis: Wheezing[ICD10: R06.2] Diagnosis: Type 2 diabetes mellitus with diabetic neuropathy, unspecified[ICD10: E11.40] Neela HYMAN DO [facility] CPT-4: 38736 08/14/2015 ([id number]) OFFICE/OUTPATIENT VISIT EST Diagnosis: Other seasonal allergic rhinitis[ICD10: J30.2] Diagnosis: Dyspnea, unspecified[ICD10: R06.00] Diagnosis: Wheezing[ICD10: R06.2] Sammi Najera NEELA Cunningham [facility] CPT-4: 62187 08/09/2015 ([id number]) OFFICE/OUTPATIENT VISIT EST Diagnosis: Essential (primary) hypertension[ICD10: I10] Diagnosis: Type 2 diabetes mellitus with hyperglycemia[ICD10: E11.65] Diagnosis: Mixed hyperlipidemia[ICD10: E78.2] Neela STERLING JulissaMendez YENNI ARTHUR [facility] CPT-4: 37549 05/22/2015 ([id number]) OFFICE/OUTPATIENT VISIT EST Diagnosis: 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] Diagnosis: - I - HYPERTENSION[ICD9: 401.9] Diagnosis: - I - HYPERLIPIDEMIA NEC/NOS[ICD9: 272.4] Diagnosis: Left hand paresthesia[ICD9: 782.0] Neela STERLING JulissaMendez SERGEGEMMAHAO [facility] CPT-4: 22070 02/13/2015 ([id number]) OFFICE/OUTPATIENT VISIT EST Diagnosis: HYPERLIPIDEMIA NEC/NOS[ICD9: 272.4] Diagnosis: 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] Neela Cunningham SERGECHRISTINA [facility] CPT-4: 74314 11/07/2014 ([id number]) OFFICE/OUTPATIENT VISIT EST Diagnosis: ALLERGIC RHINITIS[ICD9: 477.9] Diagnosis: WHEEZING[ICD9: 786.07] Neela Duarte [facility] CPT-4: 95734 10/04/2014 ([id number]) OFFICE/OUTPATIENT VISIT EST Diagnosis: BRONCHITIS, ACUTE[ICD9: 466.0] Diagnosis: WHEEZING[ICD9: 786.07] Loren Duarte [facility] CPT-4: 51062 09/22/2014 ([id number]) OFFICE/OUTPATIENT VISIT EST Diagnosis: DYSPNEA[ICD9: 786.09] Diagnosis: WHEEZING[ICD9: 786.07] Diagnosis: Arrhythmia[ICD9: 427.9] Loren [facility] CPT-4: 74163 09/21/2014 ([id number]) OFFICE/OUTPATIENT VISIT EST Diagnosis: 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, 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] Diagnosis: - I - HYPERLIPIDEMIA NEC/NOS[ICD9: 272.4] Diagnosis: - I - HYPERTENSION[ICD9: 401.9] Neela Cunningham [facility] CPT-[facility]: 73214 06/28/2014 OFFICE/OUTPATIENT VISIT EST Diagnosis: SINUSITIS, ACUTE[ICD9: 461.9] Diagnosis: OTITIS MEDIA NOS[ICD9: 382.9] Sarah RubiJong Cunningham [facility] CPT-[facility]: 93302 06/10/2014 ([id number]) OFFICE/OUTPATIENT VISIT EST Diagnosis: 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] Diagnosis: - I - HYPERLIPIDEMIA NEC/NOS[ICD9: 272.4] Diagnosis: - I - HYPERTENSION[ICD9: 401.9] Neela Cunningham [facility] CPT-[facility]: 80889 03/29/2014 ([id number]) OFFICE/OUTPATIENT VISIT EST Diagnosis: 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] Diagnosis: - I - HYPERTENSION[ICD9: 401.9] Diagnosis: - I - HYPERLIPIDEMIA NEC/NOS[ICD9: 272.4] Diagnosis: Hand lesion[ICD9: 709.9] Neela MADRIGAL [facility] CPT-4: 69188 11/30/2013 ([id number]) OFFICE/OUTPATIENT VISIT EST Diagnosis: 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] Diagnosis: HYPERLIPIDEMIA NEC/NOS[ICD9: 272.4] Diagnosis: HYPERTENSION[ICD9: 401.9] Neela VASQUEZ [facility] CPT-4: 30066 08/03/2013 ([id number]) OFFICE/OUTPATIENT VISIT EST Diagnosis: 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, 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] Diagnosis: HYPERTENSION[ICD9: 401.9] Diagnosis: HYPERLIPIDEMIA NEC/NOS[ICD9: 272.4] [facility]ela [facility] CPT-[facility]: 36454 04/06/2013 ([id number]) OFFICE/OUTPATIENT VISIT EST Diagnosis: 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] Diagnosis: HYPERLIPIDEMIA NEC/NOS[ICD9: 272.4] Diagnosis: HYPERTENSION[ICD9: 401.9] Neeladano MIRZALINE Octavio VASQUEZ [facility] CPT-4: 83699 12/01/2012 ([id number]) OFFICE/OUTPATIENT VISIT EST Diagnosis: 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] Diagnosis: HYPERTENSION[ICD9: 401.9] Diagnosis: HYPERLIPIDEMIA NEC/NOS[ICD9: 272.4] Neela Yenni SETHJUAN CARLOS HYMAN [facility] CPT-4: 55456 08/04/2012 ([id number]) OFFICE/OUTPATIENT VISIT EST Diagnosis: URINARY FREQUENCY[ICD9: 788.41] Neelasabina Zhanghao NEELA JulissaMendez YENNI [facility] CPT-4: 63988 06/01/2012 OFFICE/OUTPATIENT VISIT EST Diagnosis: Agitation[ICD9: 307.9] Diagnosis: Frequent urination[ICD9: 788.41] Janet MURILLO JulissaMendez SERGENDER [facility] CPT-4: 15989 05/29/2012 OFFICE/OUTPATIENT VISIT EST Diagnosis: SINUSITIS, ACUTE[ICD9: 461.9] Diagnosis: OTALGIA[ICD9: 388.70] Neela Sergegemmahao NEELA JulissaMendez YENNI [facility] CPT-4: 03418 05/25/2012 OFFICE/OUTPATIENT VISIT EST Diagnosis: 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, 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] Diagnosis: HYPERTENSION[ICD9: 401.9] Diagnosis: HYPERLIPIDEMIA NEC/NOS[ICD9: 272.4] Neela Zhanghao SETHJYOITYesenia DARLINE CostaMendez VICENTEER [facility] CPT-4: 65579 04/07/2012 OFFICE/OUTPATIENT VISIT EST Diagnosis: FINGER INJURY[ICD9: 959.5] Janet Cunningham [facility] CPT-[facility]: 20382 12/16/2011 ([id number]) OFFICE/OUTPATIENT VISIT EST Diagnosis: 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, 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] Diagnosis: HYPERTENSION[ICD9: 401.9] Diagnosis: HYPERLIPIDEMIA NEC/NOS[ICD9: 272.4] Neeladano ANNJYOTIYesenia GREGORIO S. ORENDER DO [facility] CPT-4: 01137 12/03/2011 ([id number]) OFFICE/OUTPATIENT VISIT EST Diagnosis: 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] Diagnosis: HYPERLIPIDEMIA NEC/NOS[ICD9: 272.4] Diagnosis: HYPERTENSION[ICD9: 401.9] Neela MURILLO S. ORE NDER DO [facility] CPT-4: 09968 08/29/2011 OFFICE/OUTPATIENT VISIT EST Diagnosis: 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] Diagnosis: HYPERLIPIDEMIA NEC/NOS[ICD9: 272.4] Diagnosis: HYPERTENSION[ICD9: 401.9] Neela MURILLO S. ORE NDER DO [facility] CPT-4: 95690 05/30/2011 OFFICE/OUTPATIENT VISIT EST Diagnosis: SKIN SENSATION DISTURB[ICD9: 782.0] Neela GREGORIO S. ORENDER DO [facility] CPT-4: 47320 01/29/2011 OFFICE/OUTPATIENT VISIT EST Diagnosis: SKIN SENSATION DISTURB[ICD9: 782.0] Neela Sergegemmahao ARMAAN DARLINE S. ORENDER DO [facility] CPT-4: 44098 01/14/2011 OFFICE/OUTPATIENT VISIT EST Neela Sergegemmahao MURILLO S. ORE NDER DO [facility] CPT- 4: 74454 01/01/2011 OFFICE/OUTPATIENT VISIT EST Neela MURILLO S. ORE NDER DO [facility] CPT- 4: 75966 11/29/2010 ([id number]) OFFICE/OUTPATIENT VISIT EST Neela HORAN S. ORENDER DO [facility] CPT-4: 91299 08/28/2010 ([id number]) OFFICE/OUTPATIENT VISIT, EST Neela WILDE S. ORENDER DO [facility] CPT-4: 53144 06/05/2010 ([id number]) OFFICE/OUTPATIENT VISIT, EST Neela WILDE S. ORENDER DO [facility] CPT-4: 52717 02/05/2010 ([id number]) OFFICE/OUTPATIENT VISIT, EST Neela WILDE S. YENNI DO [facility] CPT-4: 10500 10/09/2009 ([id number]) OFFICE/OUTPATIENT VISIT, EST Neela Yenni ANN JYOTIDANO Octavio HYMAN DO [facility] CPT-4: 75113 08/22/2009 Plan of Care Planned Activity Notes [...] : E11.65 08/30/2019 Appointment: Neela Hyman WPtel: [address] [place], [place] [phone] FOLLOW UP 08/30/2019 Visit Diagnosis Plan: Chronic [...] : J44.1 08/10/2019 Appointment: Neela Hyman WPtel: [address] [place], [place] [phone] ACUTE ILLNESS 08/10/2019 Visit Diagnosis Plan: Sore on toe Discussion: Keep farhat an/dry Keflex Notify if worsens ICD-9 : 709.9 ICD-10 : L98.9 07/06/2019 Appointment: Neela Hyman WPtel: [address] [place], [place] [phone] ACUTE ILLNESS 07/06/2019 Patient Education: Singulair- OptimizeRX Su [phone] https://www.Enohm/sampleM[employer]/resources/getResource/61/4dz166ob-34h1-7q04-28 Completed 07/06/2019 Visit Diagnosis Plan: Advanced chronic obstructive pul monary disease Discussion: Continue oxygen and pulmonary rehab Follow Up: 3 months ICD-9 : 496 ICD-10 : J44.9 05/10/2019 Visit Diagnosis Plan: Lymphoma involving lung Discussi on: Doing weekly lab and chemo ICD-9 : 202.82 ICD-10 : C85.99 05/10/2019 Appointment: Neela Hyman WPtel: [address] [place], [place] [phone] FOLLOW UP 05/10/2019 Appointment: Neela Hyman WPtel: [address] [place], [place] [phone] [place] he called 04/14/19-- he was at [...] 276.8 ICD-10 : E87.6 03/29/2019 Appointment: Neela Hymantel: [address] [place], [place] [phone] Hospital Follow Up 03/29/2019 Appointment: Neela Hyman WPtel: [address] [place], [place] [phone] [place] INJECTION 03/04/2019 Visit Diagnosis Plan: Chronic obstructiv e pulmonary disease with (acute) exacerbation Discussion: Increase SVNS with duoneb to QID Prednisone taper ICD-9 : 491.21 ICD-10 : J44.1 01/05/2019 Visit Diagnosis Plan: Other nonspecific abnormal findi ng of lung field Discussion: Referral to pulmonology--will likely need bronchoscopy--path results discussed ICD-9 : 786.6 ICD-10 : R91.8 01/05/2019 Appointment: Neela Hyman WPtel: [address] [place] [address] FOLLOW UP 01/05/2019 Patient Education: prednisone- OptimizeRX Coupon [id number] https://www.Enohm/[employer]/resources/getResource/61/l4ow0209-264j-1q32-mj Completed 01/05/2019 Care Plan: Referral Order SNOMED-CT : 30 1380676 Pending 01/05/2019 Appointment: Neela Hyman WPtel: [address] [place] [address] [place] CANCELED 12/21/2018 Visit Diagnosis Plan: Tinea corporis Discussion: Diflu can--hold simvastatin and fenofibrate while taking ICD-9 : 110.5 ICD-10 : B35.4 12/09/2018 Visit Diagnosis Plan: Solitary pulmonary nodule Discus esmer: CT guided needle biopsy of RUL lung mass ICD-9 : 793.11 ICD-10 : R91.1 12/09/2018 Appointment: Neela Hyman WPtel: [address] [place] [address] [place] FOLLOW UP 12/09/2018 Appointment: Gely Harp [address] [place] [address] NO SHOW 12/01/2018 Visit Diagnosis Plan: Other [...] : J44.9 11/24/2018 Appointment: Neela Hyman WPtel: [address] [place] [address] [place] FOLLOW UP 11/24/2018 Care Plan: PET IMAGE FULL BODY LOINC : 4 2711-2 Pending 11/24/2018 Appointment: Neela Hyman WPtel: [address] [place] [address] [place] Consult 09/21/2018 Visit Diagnosis Plan: Pneumonia, unspecified organism Discussion: Patient clinically improved. Recent CT scan from 09/07 showed unresolved right upper lobe pneumonia. Finished another 7 days of levaquin. Will repeat CBC early next week. Order sent with patient to get done at [facility]. FU CT recommended in 4 weeks. Patient states understanding. ICD-9 : 486 ICD-10 : J18.9 09/16/2018 Appointment: Amita Henderson [address] [place] [address] FOLLOW UP 09/16/2018 Visit Diagnosis Plan: Pneumonia, unspecified organism Discussion: Clinically patient feels and looks much better but need CT scan of chest due to ongoing round pneumonia in association with his known lymphoma ICD-9 : 486 ICD-10 : J18.9 09/03/2018 Appointment: Neela Hyman WPtel: [address] [place] [address] FOLLOW UP 09/03/2018 Care Plan: CT THORAX W/O DYE LOINC : 473 66-0 Pending 09/03/2018 Visit Diagnosis Plan: Essential (primary) hypertension Discussion: Stable on diltiazem. benmohamudr Toprol. Had ECHO last week. Requesting copies [...] before upcoming appt. with doctor. [facility] CBC, CMP, TSH, Lipid, A1C ICD-9 : 250.02 ICD-10 : E11.65 08/27/2018 Visit Diagnosis Plan: Personal history of pneumonia (r ecurrent) Discussion: Much improved since last visit. Completed course of antibiotics. Seeing doctor next week for well visit. May consider repeat CXR at that appt. Patient states understanding. ICD-9 : V12.61 ICD-10 : Z87.01 08/27/2018 Appointment: Amita Henderson [address] [place], [place] [id number] FOLLOW UP 08/27/2018 Visit Diagnosis Plan: Other [...] ICD-10 : I10 08/13/2018 Appointment: Amita Henderson [address] [place], [place] [phone] [facility] FOLLOW UP 08/13/2018 Appointment: Amita Henderson [address] [place], [place] [phone] CANCELED 08/13/2018 Patient Education: prednisone- OptimizeRX Coupon [phone] https://www.[employer]/samplemd/resources/getResource/61/wo81ws4h-0n87-4ul9-3u Completed 08/13/2018 Visit Diagnosis Plan: Other specified [...] ICD-10 : J18.9 08/11/2018 Appointment: Amita Henderson [facility] Razmir [id number] ACUTE ILLNESS 08/11/2018 Care Plan: CHEST X-RAY 2VW FRONTAL&LATL LOINC : 08963-6 Pending 07/20/2018 Visit Diagnosis Plan: Dyspnea, unspecified Discussion: CXR- to be completed at the hospital. Will call with results and any adjustments in plan. Solumedrol 125 administered in clinic Prednisone 20 mg BID x 5 days- start tomorrow ICD-9 : 786.09 ICD-10 : R06.00 07/16/2018 Appointment: Amita Henderson [facility] appbackr [place] [id number] ACUTE ILLNESS 07/16/2018 Patient Education: prednisone- OptimizeRX Coupon [phone] https://www.Enohm/samplemd/resources/getResource/61/57t8r3kf-rw24-8rw3-a2 Completed 07/16/2018 Visit Diagnosis Plan: Acute bronchitis due to other sp ecified organisms Discussion: Kenalog 40 mg IM administered in clinic. Doxycycline called into [facility]. Take as directed. Continue nebulizer and Trelegy. Follow up if symptoms are not improving with treatment regimen. Patient states understanding of all instruction. ICD-9 : 466.0 ICD-10 : J20.8 07/13/2018 Appointment: Amita Henderson [facility] Razmir [id number] ACUTE ILLNESS 07/13/2018 Patient Education: doxycycline hyclate- OptimizeRX Cou saritha [id number] https://www.[employer].com/samplemd/resources/getResource/61/6a524b69-7m4i-6192-2c Completed 07/13/2018 Care Plan: COM[place] : [address]-3 Pending 07/13/2018 Care Plan: CBC Pending 07/13/2018 Care Plan: A1C HPLC LOINC : 11892-6 Pending 07/13/2018 Visit Diagnosis Plan: Mixed hyperlipidemia [...] : I10 06/03/2018 Appointment: Neela Hyman WPtel: [facility][note 3]3 [place] [address] [place] FOLLOW UP 06/03/2018 Visit Diagnosis Plan: [...] ICD-10 : J44.9 05/04/2018 Appointment: Gely Harp [address] [place] [address] ACUTE ILLNESS 05/04/2018 Visit Diagnosis Plan: Localized edema Discussion: Cont inue lasix and potassium at every other day Recheck lab and fwup in 3mos Follow Up: 3 months ICD-9 : 782.3 ICD-10 : R60.0 03/03/2018 Appointment: Neela Hyman WPtel: [facility][note 3][address] FOLLOW UP 03/03/2018 Patient Education: Patient Medication Summary Completed 03/03/2018 Visit Diagnosis Plan: Localized edema Discussion: Finch ge lasix and potassium to every other day Check Chem 7 in 2 weeks and fwup ICD-9 : 782.3 ICD-10 : R60.0 02/17/2018 Appointment: [facility] [address] [facility] [place] FOLLOW UP 02/17/2018 Patient Education: Patient Medication [...] R60.0 02/10/2018 Appointment: Ne[facility]el[facility] [address] [facility] [place] FOLLOW UP 02/10/2018 Patient Education: Patient [...] L02.212 11/05/2017 Appointment: Neela Hyman WPtel: [address] [id number] FOLLOW UP 11/05/2017 Patient Education: Patient Medication Summary Completed 11/05/2017 Patient Education: Patient Medication Summary Completed 11/03/2017 Care Plan: [place] : [address]-6 Pending 11/03/2017 Care Plan: LIPID PANEL LOINC : 20558-5 Pending 11/03/2017 Care Plan: CBC Pending 11/03/2017 Care Plan: A1C HPLC LOINC : 41210-9 Pending 11/03/2017 Visit Diagnosis Plan: Allergic urticaria [...] ICD-10 : L50.0 09/09/2017 Appointment: Gely Harp [address] [place], [place] [id number] ACUTE ILLNESS 09/09/2017 Patient Education: Patient [...] ICD-10 : R59.1 08/07/2017 Appointment: Gely Harp [address] [facility] Hospital Follow Up 08/07/2017 Patient Education: Patient Medication Summary Completed 08/07/2017 Visit Diagnosis Plan: Type 2 diabetes mellitus without complications Discussion: Accuchecks daily Lab discussed Continue current meds ICD-9 : 250.00 ICD-10 : E11.9 08/04/2017 Visit Diagnosis Plan: Essential (primary) hypertension Discussion: Increase Cardizem CD to 360mg daily ICD-9 : 401.9 ICD-10 : I10 08/04/2017 Appointment: Neela Hyman WPtel: [phone] FOLLOW UP 08/04/2017 Patient Education: Patient Medication Summary Completed 08/04/2017 Patient Education: Patient Medication Summary Completed 07/31/2017 Care Plan: [place] : [address]-1 Pending 07/31/2017 Care Plan: ASSAY THYROID STIM HORMONE Pen ding 07/31/2017 Care Plan: LIPID PANEL LOINC : 44848-4 Pending 07/31/2017 Care Plan: CBC Pending 07/31/2017 Care Plan: A1C HPLC LOINC : 21588-4 Pending 07/31/2017 Patient Education: Patient Medication Summary Completed 06/19/2017 Patient Education: Patient Medication Summary Completed 06/09/2017 Care Plan: CT SOFT TISSUE NEC[place] : [address]8968-5 Pending 06/09/2017 Visit Diagnosis Plan: Acute sialoadenitis [...] ICD-10 : B02.9 06/04/2017 Appointment: Gely Harp [address] [facility] ACUTE ILLNESS 06/04/2017 Patient Education: Patient Medication [...] ICD-10 : B02.9 06/02/2017 Appointment: Gely Harp [address] [place], [place] [id number] ACUTE ILLNESS 06/02/2017 Patient Education: Patient Medication [...] E11.9 05/05/2017 Appointment: Neela Hyman WPtel: [phone] [facility] FOLLOW UP 05/05/2017 Patient Education: Patient Medication Summary Completed 05/05/2017 Patient Education: Patient Medication Summary Completed 05/01/2017 Care Plan: A1C HPLC [facility] : 11259-8 Pending 05/01/2017 Visit Diagnosis Plan: Chronic obstructiv [...] ICD-10 : H61.23 04/10/2017 Appointment: Gely Harp [address] [place], [place] [email or web address] ACUTE ILLNESS 04/10/2017 Patient Education: Patient Medication Summary Completed 04/10/2017 Appointment: Neela Hyman WPtel: [address] [place], [place] [phone] [place] INJECTION 03/28/2017 Patient Education: Patient Medication [...] : J44.9 02/03/2017 Appointment: Neela Hyman WPtel: [address] [place], [place] [phone] FOLLOW UP 02/03/2017 Patient Education: Patient Medication Summary Completed 02/03/2017 Patient Education: Patient Medication Summary Completed 01/30/2017 Care Plan: [place] : [address]-8 Pending 01/30/2017 Care Plan: LIPID PANEL LOINC : 42114-8 Pending 01/30/2017 Care Plan: CBC Pending 01/30/2017 Care Plan: A1C HPLC LOINC : 20407-9 Pending 01/30/2017 Care Plan: ASSAY OF PSA [...] : E11.65 10/30/2016 Appointment: Neela Hyman WPtel: [address] [place], [place] [address] [place] 10/29 lm ~sl 10/30 confirmed~sl FOLLOW UP 11/2016 Patient Education: Patient Medication Summary Completed 10/30/2016 Patient Education: Patient Medication Summary Completed 10/24/2016 Visit Diagnosis Plan: Acute bronchitis, unspecified Di scussion: Patient sounds and looks much improved Continue current regimen Keep appt with Dr Levi for Friday Follow up PRN ICD-9 : 466.0 ICD-10 : J20.9 08/30/2016 Appointment: Sammi [facility]ajera [facility] [facility] [place] / rang and rang rang 08/30 rang and [...] : J20.9 08/27/2016 Appointment: Sammi [facility]ajera [facility] [facility] FO[facility] 08/27/2016 Patient Education: Patient Medication Summary Completed 08/27/2016 Care Plan: Referral Order SNOMED-CT : 30 5805157 Pending 08/27/2016 Visit Diagnosis Plan: Type 2 [...] : I10 07/02/2016 Appointment: Neela Hyman WPtel: [address] [place] [address] 07/01 rang and rang`sl FOLLOW UP 7 Patient Education: Patient Medication Summary Completed 07/02/2016 Patient Education: Patient Medication Summary Completed 06/27/2016 Care Plan: LIPID PANEL LOINC : 59718-8 Pending 06/27/2016 Care Plan: COMPREH[place] : 76748-8 Pending 06/27/2016 Care Plan: A1C HPLC LOINC : 17049-7 Pending 06/27/2016 Visit Diagnosis Plan: Acute bronchitis, [...] ICD-10 : J20.9 06/14/2016 Appointment: Sammi Najera [address] [place], [place] [address] FOLLOW UP 06/14/2016 Patient Education: Patient Medication [...] ICD-10 : J20.9 06/13/2016 Appointment: Sammi Najera [address] [place], [place] [address] ACUTE ILLNESS 06/13/2016 Patient Education: Patient Medication Summary Completed 06/13/2016 Care Plan: CHEST X-RAY 2VW FRONTAL&LATL LOINC : 90468-1 Pending 06/13/2016 Visit Plan: Increase metoprolol to 100mg po BID BP readings and BP check in 1month 05/14/2016 Appointment: Neela Hyman WPtel: [address] [place] [address] 05/13 rang and rang`sl FOLLOW UP 6 Patient Education: Patient Medication Summary Completed 05/14/2016 Visit Plan: Increase metoprolol to 50mg BID BP check in 1 week f/u BP appt 2 weeks consider musculoskeletal if pain returns 04/29/2016 Appointment: Neela Hyman WPtel: [address] [place] [address] 04/25 confimred~sl FOLLOW UP 04/29/2016 Patient Education: Patient Medication Summary Completed 04/29/2016 Visit Plan: Stat CT scan of abdomen/pelv is to look for stone Hydrate and use tramadol prn Increase metoprolol to 25mg po BID Will see urology pending CT scan results 04/22/2016 Appointment: Neela Hyman WPtel: [address] [place] [address] 04/17 confirmed-sp ACUTE ILLNESS 04/22/2016 Patient Education: [...] flu shot 04/01/2016 Appointment: Neela Hyman WPtel: [facility][note 3]1 [facility] FOLLOW UP 04/01/2016 Patient Education: Patient Medication Summary Completed 04/01/2016 Patient Education: [facility] - Saving AutoInj - 18-64 - Dynamic Heber l ID Completed 04/01/2016 Patient Education: Patient Medication Summary Completed 03/28/2016 Care Plan: A1C HPLC LOINC : 52508-9 Pending 03/28/2016 Care Plan: [place] : [address]-8 Pending 03/28/2016 Visit Plan: Lab discussed Continue curre nt meds Accuchecks daily 11/30/2015 Appointment: Neela Hyman WPtel: [address] [place] [address] 11/28 confirmed~sl FOLLOW UP 11/30/2015 Patient Education: Patient Medication Summary Completed 11/30/2015 Appointment: Neela Hyman WPtel: [address] [place] [address] RESCHEDULED 11/28/2015 Patient Education: Patient Medication Summary Completed 11/23/2015 Care Plan: COMPREH[place] : 91271-3 Pending 11/23/2015 Care Plan: LIPID PANEL LOINC : 30471-5 Pending 11/23/2015 Care Plan: CBC Pending 11/23/2015 Care Plan: A1C HPLC LOINC : 00633-7 Pending 11/23/2015 Visit Plan: Lab discussed Accuchecks richard ly Continue current meds Cymbalta helping with feet and mood 08/29/2015 Appointment: Neela Hyman WPtel: [address] [place], [place] [phone] [place] FOLLOW UP 08/29/2015 Patient Education: Patient Medication Summary Completed 08/29/2015 Visit Plan: Check CXR Stop all steroids and steroid inhalers Use SVN with but change to duoneb Add singulair for allergy etiology Change fluoxetine to cymbalta 60mg daily Viagra samples given to try prn--warned of no nitrates 08/14/2015 Appointment: Neela Hyman WPtel: [address] [place], [place] [phone] lm to reschedule ~sl 07/27 lm ~sl 08/09 busy 08/10 conf irmed-sp Annual Well Visit 08/14/2015 Patient Education: Patient Medication Summary Completed 08/14/2015 Care Plan: CHEST X-RAY 2VW FRONTAL&LATL LOINC : 18439-5 Ordered 08/14/2015 Visit Plan: Decadron 8mg given [...] as expected 08/09/2015 Appointment: Sammi Najera [address] ER Follow UP 08/09/2015 Patient Education: Patient Medication Summary Completed 08/09/2015 Patient Education: [facility] - Saving AutoInj - 18-64 - Dynamic [...] with it 05/22/2015 Appointment: Neela Hyman WPtel: [address] [place], [place] [phone] 05/17 confirmed~sl FOLLOW UP 05/22/2015 Patient Education: Patient Medication Summary Completed 05/22/2015 Patient Education: Patient Medication Summary Completed 05/15/2015 Visit Plan: Obtain EMGs done at [place] from when fractured left arm Lab discussed Accuchecks daily 02/13/2015 Appointment: Neela Hyman WPtel: [address] [place], [place] [phone] 02/10 confrimed FOLLOW UP 02/13/2015 Patient Education: Patient Medication Summary Completed 02/13/2015 Patient Education: Patient Medication Summary Completed 02/09/2015 Visit Plan: discussed lab add fenofibrat e 134mg po daily recheck fasting lab in 3 months, CBC, CMP, Lipids, hgb AIC 11/07/2014 Appointment: Neela Hyman WPtel: [address] [place], [place] [phone] 11/04 appt confirmed cn FOLLOW UP 015 Patient Education: Patient Medication Summary Completed 11/07/2014 Patient Education: Patient Medication Summary Completed 11/03/2014 Visit Plan: Continue loratadine 10mg richard ly Notify if symptoms return 10/04/2014 Appointment: Neela Hyman WPtel: [address] [place], [place] [phone] confirmed on 10/03 at 2:42pm FOLLOW UP 09/23 Patient Education: Patient Medication Summary Completed 10/04/2014 Appointment: Neela Hyman WPtel: [address] [place] [address] ACUTE ILLNESS 09/28/2014 Appointment: Loren Garza WPtel: [address] [place] [address] FOLLOW UP 09/22/2014 Patient Education: Patient Medication Summary Completed 09/22/2014 Appointment: Loren Garza WPtel: [address] [place] [address] ACUTE ILLNESS 09/21/2014 Patient Education: Patient Medication Summary Completed 09/21/2014 Patient Education: [facility] - Saving AutoInj - 18+ - Dynamic Portal ID Completed 09/21/2014 Visit Plan: Lab discussed Continue daily accuchecks Continue current meds 06/28/2014 Appointment: Neela Hyman WPtel: [address] [place], [place] [phone] FOLLOW UP 06/28/2014 Patient Education: Patient Medication Summary Completed 06/28/2014 Patient Education: Patient Medication Summary Completed 06/23/2014 Appointment: Sarah Sunshine WPtel: [address] [place], [place] [phone] ACUTE ILLNESS 06/10/2014 Patient Education: Patient Medication Summary Completed 06/10/2014 Patient Education: [facility] - Saving AutoInj - 18+ - Dynamic Portal ID Completed 06/10/2014 Visit Plan: Lab discussed Continue daily accuchecks Continue current meds 03/29/2014 Appointment: Neela Hymantel: [address] [place], [place] [phone] FOLLOW UP 03/29/2014 Patient Education: Patient Medication Summary Completed 03/29/2014 Patient Education: Patient Medication Summary Completed 03/23/2014 Visit Plan: Lab discussed Continue curre nt meds and accuchecks See surgery for removal of hand lesion 11/30/2013 Appointment: Neela Hyman WPtel: [address] [place] [address] 11/29 no answer FOLLOW UP 11/30/2013 Patient Education: Patient Medication Summary Completed 11/30/2013 Visit Plan: Lab discussed Continue curre nt meds 08/03/2013 Appointment: Neela Hyman WPtel: [address] [place] [address] [place] FOLLOW UP 08/03/2013 Patient Education: Patient Medication Summary Completed 08/03/2013 Visit Plan: Lab Discussed Will continue current meds and pt will get back on diet/exercise Check lab in 4mos and fwup 04/06/2013 Appointment: Neela Hyman WPtel: [address] [place], [place] [phone] FOLLOW UP 04/06/2013 Patient Education: Patient Medication Summary Completed 04/06/2013 Visit Plan: Lab discussed Continue daily accuchecks 12/01/2012 Appointment: Neela Hyman WPtel: [address] [place], [place] [phone] 11/30 no answer FOLLOW UP 12/01/2012 Patient Education: Patient Medication Summary Completed 12/01/2012 Visit Plan: Continue current meds and da russell accuchecks Lab discussed 08/04/2012 Appointment: Neela Hyman WPtel: [address] [place], [place] [phone] [place] FOLLOW UP 08/04/2012 Patient Education: Patient Medication Summary Completed 08/04/2012 Appointment: Neela Hyman WPtel: [address] [place], [place] [phone] [facility] 06/01/2012 Patient Education: Patient Medication Summary Completed 06/01/2012 Appointment: Janet Jean Baptiste WPtel: [address] [place], [place] [phone] FOLLOW UP 05/29/2012 Patient Education: Patient Medication Summary Completed 05/29/2012 Visit Plan: pt states Dr. Hyman told h is to increase his Prozac dose while she was talking to her at [facility]. Discussed that pt. should not increase or decrease dosage without 's knowledge. Pt. will seek hearing test here in town at the hearing aid place on [address]. Discussed that ear pain is likely caused by sinus pressure. Pt. will notify if no improvement. 05/25/2012 Appointment: Janet Jean Baptiste WPtel: [address] [place], [place] [phone] ACUTE ILLNESS 05/25/2012 Patient Education: Patient Medication Summary Completed 05/25/2012 Visit Plan: Continue current meds Contin ue daily accuchecks but alternate times Increase fish oil to 3gm daily 04/07/2012 Appointment: Neela Hyman WPtel: [address] [place], [place] [phone] 04/06 FOLLOW UP 04/07/2012 Patient Education: Patient Medication Summary Completed 04/07/2012 Appointment: Janet Jean Baptiste WPtel: [address] [place], [place] [phone] ACUTE ILLNESS 12/16/2011 Patient Education: Patient Medication Summary Completed 12/16/2011 Visit Plan: Increase 12/03/2011 Appointment: Neela Hyman WPtel: [address] [place], [place] [phone] FOLLOW UP 12/03/2011 Patient Education: Patient Medication Summary Completed 12/03/2011 Visit Plan: Continue current meds Contin ue accuchecks 08/29/2011 Appointment: Neela Hyman WPtel: [address] [place] [address] FOLLOW UP 08/29/2011 Patient Education: Patient Medication Summary Completed 08/29/2011 Visit Plan: Continue current meds except restart zocor 05/30/2011 Appointment: Neela Hyman WPtel: [address] [place] [address] FOLLOW UP 05/30/2011 Patient Education: Patient Medication Summary Completed 05/30/2011 Visit Plan: Continue tennis elbow strap May go back to weight-lifing--light weigts every other day 01/29/2011 Appointment: Neela Hyman WPtel: [address] [place] [address] FOLLOW UP 01/29/2011 Patient Education: Patient Medication Summary Completed 01/29/2011 Visit Plan: Continue tennis elbow strap and anti-inflammatories 01/14/2011 Appointment: Neela Hyman WPtel: [address] [place] [address] FOLLOW UP 01/14/2011 Appointment: Janet Jean Baptiste WPtel: [address] [place] [address] NEW PATIENT 01/14/2011 Patient Education: Patient Medication Summary Completed 01/14/2011 Appointment: Neela Hyman WPtel: [address] [place] [address] [place] FOLLOW UP 01/08/2011 Appointment: Neela Hyman WPtel: [address] [place] [address] [place] FOLLOW UP 01/01/2011 Appointment: Neela Hyman WPtel: [address] [place], [place] [phone] UA 01/01/2011 Patient Education: Patient Medication Summary [...] given. 11/29/2010 Appointment: Janet Jean Baptiste WPtel: [address] [place] [address] ACUTE ILLNESS 11/29/2010 Patient Education: Patient Medication Summary Completed 11/29/2010 Visit Plan: Cont current meds Check CMP, Lipids, HbA1C 08/28/2010 Appointment: Neela Hyman WPtel: [address] [place] [address] FOLLOW UP 08/28/2010 Patient Education: Patient Medication Summary Completed 08/28/2010 Visit Plan: Cont current meds and accuch ecks Add Zocor 40mg q HS Check Lipids and HbA1C in 3mos 06/05/2010 Appointment: Neela Hyman WPtel: [address] [place] [address] FOLLOW UP 06/05/2010 Patient Education: Patient Medication Summary Completed 06/05/2010 Visit Plan: Check Lipids and HbA1C 02/05/2010 Appointment: Neela Hyman WPtel: [address] [place] [address] FOLLOW UP 02/05/2010 Patient Education: Patient Medication Summary Completed 02/05/2010 Visit Plan: HbA1C in 3mos. Continue Accu checks BID alternating times. Check HbA1C, CMP, Lipids 10/09/2009 Appointment: Neela Hyman WPtel: [address] [place] [address] FOLLOW UP 10/09/2009 Patient Education: Patient Medication Summary Completed 10/09/2009 Visit Plan: Saline nasal flushes prn. Ty lenol/Motrin prn headache. Notify if persists/symptoms worsening. 08/22/2009 Appointment: Neela Hyman WPtel: [id number] ACUTE ILLNESS 08/22/2009 Patient Education: Patient Medication Summary Completed 08/22/2009 Referral: Aub[facility] Rand [facility] [phone] [id number] [place] Office will verfy his insurance then they will contact patient Completed Referral: Anu Shahbaz Patterson WPtel: [address] [facility] [address] [id number] [place] Referral Completed Referral: Ion Levi [address] [id number] [place] Referral Appointment Requested Referral: Ion Levi [address] [facility] C[address] [id number] [place] Referral Appointment Requested Instructions Comment . [...] those Will keep meds same for now Patiet got hearing aids and is doing well with it . Obtain EMGs done at [place] from when fractured left arm Lab discussed [...] while she was talking to her at [facility]. Discussed that pt. should not increase or decrease dosage without Dr's knowledge. Pt. will seek hearing test here in [facility] at the hearing aid place on [address]. Discussed that ear pain is likely caused [...]
--- OUTSIDE RECORDS SUMMARY | 2019-12-09 08:57 | XMS REPORT | CCD ---
Author Author Michael Hyman D.O. Organization [facility] Address [address] [place] [address] Phone Care Team Providers Care [employer] Name Role Phone Neela Hyman D.O., PP Unavailable CCM Unavailable Summary Purpose Interface Exchange Insurance Providers Payer name Policy type / Coverage type Covered libertarian ID Effective Begin Date Effective End Date ABS FOR Circl Commercial Insurance [id number] Unknown Family History Family History data not found Social History Social History Element Codes Description Effective Dates Marital status Unknown 05/30/[address]: 5205562 Former smoker quit 25 years ago 01/01/2011 [...] Fill Instructions Zocor 40 mg tablet RxNorm: 150121 TAKE ONE TABLET BY M OUTH EVERY NIGHT AT BEDTIME 10/20/2019 04/16/2020 Active MagOx 400 mg (241.3 mg magnesium) tablet RxNorm: 123002 TAKE ONE TABLET BY MOUTH EVERY DAY 10/20/2019 04/16/2020 Active fenofibrate micronized 134 mg capsule RxNorm: 125321 1 Capsule( s) Oral QD 09/22/2019 03/20/2020 Active metformin 500 mg tablet RxNorm: 504645 2 Tablet(s) Oral two afshan es a day 09/22/2019 12/20/2019 Active Benicar 40 mg tablet RxNorm: 215368 1 Tablet(s) Oral QD 09/22/2019 Active Singulair 10 mg tablet RxNorm: 125169 TAKE ONE TABLET BY MOUTH EVERY EVENING 09/22/2019 03/20/2020 Active Reselected prescribe r from [facility] to [facility] Lasix 40 mg tablet RxNorm: 255197 1 Tablet(s) Oral QD 08/24/201910/25 Active duloxetine 60 mg capsule,delayed release RxNorm: 382295 TAKE ONE CAPSULE BY MOUTH EVERY DAY 08/16/2019 02/11/2020 Active metoprolol succinate ER 100 mg tablet,extended release 24 hr RxNorm: 570607 TAKE ONE TABLET BY MOUTH TWICE A DAY 08/16/2019 05/11/2020 Active potassium chloride ER 20 mEq tablet,extended release RxNorm: 803383 1 Tablet(s) Oral two times a day 07/22/2019 10/19/2019 Inactive metformin 500 mg tablet RxNorm: 713694 2 Tablet(s) Oral two afshan es a day 07/13/2019 09/21/2019 Inactive Keflex 500 mg capsule RxNorm: 813818 1 Capsule(s) Oral three ti mes a day 07/06/2019 07/13/2019 Inactive Singulair 10 mg tablet RxNorm: 745937 TAKE ONE TABLET BY MOUTH EVERY EVENING 07/06/2019 09/21/2019 Inactive Reselected prescribe r from [facility] to [facility] Singulair 10 mg tablet RxNorm: 650195 TAKE ONE TABLET BY MOUTH EVERY EVENING 06/22/2019 07/05/2019 Inactive Reselected prescribe r from [facility] to [facility] Zocor 40 mg tablet RxNorm: 585170 TAKE ONE TABLET BY M OUTH EVERY NIGHT AT BEDTIME 06/21/2019 10/19/2019 Inactive MagOx 400 mg (241.3 mg magnesium) tablet RxNorm: 767367 1 Table t(s) Oral QD 06/21/2019 08/20/2019 Inactive diltiazem ER 360 mg capsule,24 hr,extended release RxNorm: 8 38459 TAKE ONE CAPSULE BY MOUTH AT BEDTIME -REPLACES 300MG 05/17/2019 11/12/2019 Active MagOx 400 mg (241.3 mg magnesium) tablet RxNorm: 317662 1 Table t(s) Oral QD 04/26/2019 06/20/2019 Inactive Lasix 40 mg tablet RxNorm: 196743 40 MG PO DAILY 04/12/2019 08/23/2019 Inactive Benicar 40 mg tablet RxNorm: 611959 1 Tablet(s) Oral QD 03/29/2019 Inactive potassium chloride ER 20 mEq tablet,extended release RxNorm: 474459 1 Tablet(s) Oral two times a day 03/29/2019 06/27/2019 Inactive potassium chloride ER 20 mEq tablet,extended release RxNorm: 261993 1 Tablet(s) Oral QD 03/29/2019 03/28/2019 Inactive Benicar 40 mg tablet RxNorm: 039561 1 Tablet(s) Oral QD 03/29/2019 Inactive MagOx 400 mg (241.3 mg magnesium) tablet RxNorm: 398837 1 Table t(s) Oral QD 03/29/2019 04/25/2019 Inactive metformin 500 mg tablet RxNorm: 984633 2 Tablet(s) Oral two afshan es a day 03/29/2019 07/12/2019 Inactive fenofibrate micronized 134 mg capsule RxNorm: 104784 TA KE ONE CAPSULE BY MOUTH EVERY DAY 03/05/2019 09/21/2019 Inactive duloxetine 60 mg capsule,delayed release RxNorm: 833808 1 Capsu le(s) PO QD 01/28/2019 07/26/2019 Inactive Trelegy Ellipta 100 mcg-62.5 mcg-25 mcg powder for inhalatio n RxNorm: 2372543 1 Puff(s) INH QD 01/06/2019 12/31/2019 Active 90 day supply prednisone 20 mg tablet RxNorm: 278003 1 Tablet(s) PO T ID for 3 days then 1 po BID for 3 days then 1 po daily for 3 days 01/05/2019 03/28/2019 Inacti ve metformin ER 1,000 mg tablet,extended release 24hr RxNorm: 1 521176 TAKE TWO TABLETS (1000MG) BY MOUTH TWO TIMES A DAY 12/22/2018 07/13/2019 Inacti ve Diflucan 100 mg tablet RxNorm: 166674 1 Tablet(s) PO QD 12/09/2018 Inactive prednisone 20 mg tablet RxNorm: 071103 1 Tablet(s) PO B ID for 4 days then 1 po daily for 4 days 11/24/2018 01/04/2019 Inactive albuterol sulfate 2.5 mg/3 mL (0.083 %) solution for n ebulization RxNorm: 988528 3 Milliliter(s) INH ONE VIAL VIA NEBULIZER EVERY 4 HOURS 019 07/21/2019 Inactive [AttnRPh: Saving apply/adjudicate RxGRP: SG20 RxBIN:[id number] RxPCN: ID#:[id number]] Trelegy Ellipta 100 mcg-62.5 mcg-25 mcg powder for inhalatio n RxNorm: 9215579 1 Puff(s) INH QD 10/27/2018 01/06/2019 Inactive 90 day supply diltiazem ER 360 mg capsule,24 hr,extended release RxNorm: 8 76360 TAKE ONE CAPSULE BY MOUTH AT BEDTIME -REPLACES 300MG 10/13/2018 04/10/2019 Inactive metoprolol succinate ER 100 mg tablet,extended release 24 hr RxNorm: 131643 TAKE ONE TABLET BY MOUTH TWICE A DAY 10/13/2018 07/09/2019 Inactive Trelegy Ellipta 100 mcg-62.5 mcg-25 mcg powder for inhalatio n RxNorm: 2072739 INHALE ONE PUFF ONCE DAILY 09/07/2018 10/27/2018 Inactive Levaquin 750 mg tablet RxNorm: 345004 1 Tablet(s) PO QD 09/07/2018 Inactive Levaquin 750 mg tablet RxNorm: 086959 1 Tablet(s) PO QD 09/07/2018 Inactive prednisone 20 mg tablet RxNorm: 231120 2 Tablet(s) PO QAM 08/13/2018 08/19/2018 Inactive Levaquin 500 mg tablet RxNorm: 375086 1 Tablet(s) PO QD 08/11/2018 Inactive fenofibrate micronized 134 mg capsule RxNorm: 196222 TA KE ONE CAPSULE BY MOUTH EVERY DAY 08/10/2018 02/05/2019 Inactive prednisone 20 mg tablet RxNorm: 636264 1 Tablet(s) PO BID 07/16/2018 07/20/2018 Inactive doxycycline hyclate 100 mg capsule RxNorm: 8584888 1 Capsule(s) PO BID 07/13/2018 07/22/2018 Inactive duloxetine 60 mg capsule,delayed release RxNorm: 202792 TAKE ONE CAPSULE BY MOUTH ONCE A DAY 07/08/2018 01/28/2019 Inactive Lasix 40 mg tablet RxNorm: 744825 1 TABLET(S) PO QAM 06/08/201809/05 Inactive potassium chloride ER 20 mEq tablet,extended release(p art/cryst) RxNorm: 0063341 1 TABLET(S) PO QD 06/08/2018 09/05/2018 Inactive metformin ER 1,000 mg tablet,extended release 24hr RxNorm: 1 200944 TAKE TWO TABLETS (1000MG) BY MOUTH TWO TIMES A DAY 06/01/2018 11/27/2018 Inacti ve Benicar HCT 40 mg-25 mg tablet RxNorm: 200931 TAKE ONE TABLET BY MOUTH ONCE DAILY 05/11/2018 03/28/2019 Inactive Zocor 40 mg tablet RxNorm: 655012 TAKE ONE TABLET BY M OUTH EVERY NIGHT AT BEDTIME 05/11/2018 06/20/2019 Inactive Trelegy Ellipta 100 mcg-62.5 mcg-25 mcg powder for inhalatio n RxNorm: 9993401 1 PUFF(S) INH QD 04/06/2018 07/04/2018 Inactive diltiazem ER 360 mg capsule,24 hr,extended release RxNorm: 8 04659 1 Capsule(s) PO QHS replaces 300mg dose 03/30/2018 09/25/2018 Inactive Trelegy Ellipta 100 mcg-62.5 mcg-25 mcg powder for inhalatio n RxNorm: 4417326 1 Puff(s) INH QD 02/24/2018 02/23/2018 Inactive Trelegy Ellipta 100 mcg-62.5 mcg-25 mcg powder for inhalatio n RxNorm: 8159931 1 Puff(s) INH QD 02/24/2018 02/23/2018 Inactive Trelegy Ellipta 100 mcg-62.5 mcg-25 mcg powder for inhalatio n RxNorm: 0414483 1 Puff(s) INH QD 02/24/2018 04/05/2018 Inactive Lasix 40 mg tablet RxNorm: 545685 1 Tablet(s) PO QAM 02/10/201803/11 Inactive potassium chloride ER 20 mEq tablet,extended release(p art/cryst) RxNorm: 3770881 1 Tablet(s) PO QD 02/10/2018 03/11/2018 Inactive fenofibrate micronized 134 mg capsule RxNorm: 294564 1 Capsule( s) PO QD 01/30/2018 07/28/2018 Inactive metoprolol succinate ER 100 mg tablet,extended release 24 hr RxNorm: 641791 TAKE ONE TABLET BY MOUTH TWICE A DAY 12/30/2017 09/25/2018 Inactive metformin ER 1,000 mg tablet,extended release 24hr RxNorm: 1 244277 1 Tablet(s) PO BID 11/17/2017 05/15/2018 Inactive [SAVINGS FOR NON -COVERED DRUGS -- BIN:490032, PCN: ASPROD1, Group: XXXXX, ID# [id number], Questions: . THIS IS NOT INSURANCE.] Benicar HCT 40 mg-25 mg tablet RxNorm: 702636 1 Tablet(s) PO QD 05/10/2018 Inactive [SAVINGS FOR NON-COVERED JESU GS -- BIN:364702, PCN: ASPROD1, Group: XXXXX, ID# [id number], Questions: . THIS IS NOT INSURANCE.] Bactroban 2 % topical cream RxNorm: 530480 Application TOP BID 10/2409/02/2018 Inactive clindamycin HCl 300 mg capsule RxNorm: 296054 2 Capsule(s) PO TID 0 11/05/2017 11/18/2017 Inactive duloxetine 60 mg capsule,delayed release RxNorm: 113797 Capsule(s) TAKE ONE CAPSULE BY MOUTH ONCE DAILY 09/24/2017 09/23/2017 Inactive triamcinolone acetonide 0.1 % topical ointment RxNorm: 6139251 1 TOP BID 09/09/2017 11/04/2017 Inactive Bactrim DS 800 mg-160 mg tablet RxNorm: 135462 1 Tablet(s) PO BID 0 08/07/2017 08/13/2017 Inactive metronidazole 500 mg tablet RxNorm: 456375 1 Tablet(s) PO BID 08/0708/13/2017 Inactive diltiazem ER 360 mg capsule,24 hr,extended release RxNorm: 8 46974 1 Capsule(s) PO QHS replaces 300mg dose 08/04/2017 01/30/2018 Inactive fenofibrate micronized 134 mg capsule RxNorm: 486392 1 Capsule( s) PO QD 07/21/2017 01/30/2018 Inactive Zocor 40 mg tablet RxNorm: 635700 1 Tablet(s) PO QHS 07/21/201705/10 Inactive GB duloxetine 60 mg capsule,delayed release RxNorm: 123539 Capsule(s) TAKE ONE CAPSULE BY MOUTH ONCE DAILY 06/24/2017 09/24/2017 Inactive Cleocin HCl 300 mg capsule RxNorm: 092756 2 Capsule(s) PO BID 06/0206/08/2017 Inactive acyclovir 800 mg tablet RxNorm: 079370 1 Tablet(s) PO 5x day 201706/08/2017 Inactive diltiazem ER 300 mg capsule,24 hr,extended release RxNorm: 8 06993 1 Capsule(s) PO QHS replaces 240mg dose 05/05/2017 08/03/2017 Inactive ipratropium-albuterol 0.5 mg-3 mg(2.5 mg base)/3 mL ne bulization soln RxNorm: 7594883 1 Unit Dose INH Q4H as needed 05/05/2017 01/04/2019 Inactive metformin ER 1,000 mg tablet,extended release 24hr RxNorm: 1 925075 1 Tablet(s) PO BID 04/28/2017 11/17/2017 Inactive [SAVINGS FOR NON -COVERED DRUGS -- BIN:067349, PCN: ASPROD1, Group: XXXXX, ID# [id number], Questions: . THIS IS NOT INSURANCE.] diltiazem ER (XR/XT) 240 mg capsule,extended release 2 4 hr, controlled RxNorm: 003850 TAKE ONE CAPSULE BY MOUTH EVERY DAY 04/15/2017 05/04/2017 Inact avani prednisone 20 mg tablet RxNorm: 873204 1 Tablet(s) PO QD 04/10/2017 1 06/14/2016 Inactive Breo Ellipta 200 mcg-25 mcg/dose powder for inhalation RxNor m: 0928233 1 Puff(s) INH QD 04/10/2017 02/09/2018 Inactive Breo Ellipta 200 mcg-25 mcg/dose powder for inhalation RxNor m: 3836336 1 Puff(s) INH QD 04/10/2017 04/09/2017 Inactive Levaquin 500 mg tablet RxNorm: 074366 1 Tablet(s) PO QD 04/10/2017 Inactive metoprolol succinate ER 100 mg tablet,extended release 24 hr RxNorm: 818531 TAKE ONE TABLET BY MOUTH TWICE A DAY 03/24/2017 12/18/2017 Inactive fenofibrate micronized 134 mg capsule RxNorm: 903089 1 Capsule( s) PO QD 01/16/2017 07/21/2017 Inactive Benicar HCT 40 mg-25 mg tablet RxNorm: 553671 1 Tablet(s) PO QD 11/17/2017 Inactive [SAVINGS FOR NON-COVERED JESU GS -- BIN:747436, PCN: ASPROD1, Group: XXXXX, ID# [id number], Questions: . THIS IS NOT INSURANCE.] metoprolol succinate ER 100 mg tablet,extended release 24 hr RxNorm: 192639 1 Tablet(s) PO BID 10/16/2016 03/23/2017 Inactive diltiazem ER (XR/XT) 240 mg capsule,extended release 2 4 hr, controlled RxNorm: 647552 1 Capsule(s) PO QD 10/16/2016 04/13/2017 Inactive [SAVINGS FOR NON- COVERED DRUGS -- BIN:834524, PCN: ASPROD1, Group: XXXXX, ID# [id number], Questions: . THIS IS NOT INSURANCE.] metformin ER 1,000 mg tablet,extended release 24hr RxNorm: 8 60999 1 Tablet(s) PO BID 10/16/2016 04/28/2017 Inactive [SAVINGS FOR NON -COVERED DRUGS -- BIN:705844, PCN: ASPROD1, Group: XXXXX, ID# [id number], Questions: . THIS IS NOT INSURANCE.] Zocor 40 mg tablet RxNorm: 883641 1 Tablet(s) PO QHS 10/16/201607/21 Inactive GB Singulair 10 mg tablet RxNorm: 075047 Tablet(s) 1 TABLET(S) PO QHS 08/27/2016 09/02/2018 Inactive prednisone 20 mg tablet RxNorm: 008492 1 Tablet(s) PO QD 08/27/2016 0 08/31/2016 Inactive ipratropium-albuterol 0.5 mg-3 mg(2.5 mg base)/3 mL ne bulization soln RxNorm: 2019266 1 Unit Dose INH Q4H as needed 08/27/2016 05/04/2017 Inactive metoprolol succinate ER 100 mg tablet,extended release 24 hr RxNorm: 251057 TAKE ONE TABLET BY MOUTH TWICE A DAY 08/05/2016 10/16/2016 Inactive duloxetine 60 mg capsule,delayed release RxNorm: 980443 TAKE ONE CAPSULE BY MOUTH ONCE DAILY 08/05/2016 06/24/2017 Inactive prednisone 20 mg tablet RxNorm: 333930 1 Tablet(s) PO QD 06/14/2016 0 06/18/2016 Inactive ipratropium-albuterol 0.5 mg-3 mg(2.5 mg base)/3 mL ne bulization soln RxNorm: 1176509 1 Unit Dose INH Q4H as needed 06/13/2016 08/26/2016 Inactive Levaquin 500 mg tablet RxNorm: 024268 1 Tablet(s) PO QD 06/13/2016 Inactive metoprolol succinate ER 100 mg tablet,extended release 24 hr RxNorm: 044924 1 Tablet(s) PO BID replaces 50mg dose 05/14/2016 07/12/2016 Inactive metoprolol succinate ER 50 mg tablet,extended release 24 hr RxNorm: 234939 1 Tablet(s) PO BID 04/29/2016 05/13/2016 Inactive prednisone 20 mg tablet RxNorm: 071348 1 Tablet(s) PO BID 04/22/2016 04/21/2016 Inactive prednisone 20 mg tablet RxNorm: 569220 1 Tablet(s) PO BID 04/22/2016 04/28/2016 Inactive Singulair 10 mg tablet RxNorm: 826744 Tablet(s) 1 TABLET(S) PO QHS 04/01/2016 08/26/2016 Inactive metoprolol succinate ER 25 mg tablet,extended release 24 hr RxNorm: 752696 1 Tablet(s) PO QHS for blood pressure 04/01/2016 05/13/2016 Inactive fenofibrate micronized 134 mg capsule RxNorm: 964912 TA KE ONE CAPSULE BY MOUTH DAILY 01/25/2016 01/16/2017 Inactive duloxetine 60 mg capsule,delayed release RxNorm: 559942 TAKE ONE CAPSULE BY MOUTH ONCE DAILY 01/25/2016 08/04/2016 Inactive Zocor 40 mg tablet RxNorm: 877790 TAKE ONE TABLET BY MOUTH AT B EDTIME 11/13/2015 10/16/2016 Inactive GB metformin ER 1,000 mg tablet,extended release 24hr RxNorm: 8 70665 1 Tablet(s) PO BID 10/26/2015 10/16/2016 Inactive [SAVINGS FOR NON -COVERED DRUGS -- BIN:356840, PCN: ASPROD1, Group: XXXXX, ID# [id number], Questions: . THIS IS NOT INSURANCE.] Benicar HCT 40 mg-25 mg tablet RxNorm: 246965 1 Tablet(s) PO QD 06/201511/11/2016 Inactive [SAVINGS FOR NON-COVERED JESU GS -- BIN:438993, PCN: ASPROD1, Group: XXXXX, ID# XXXXXXX, Questions: . THIS IS NOT INSURANCE.] diltiazem ER (XR/XT) 240 mg capsule,extended release,control led RxNorm: 321072 1 Capsule(s) PO QD 10/26/2015 10/15/2016 Inactive [SAVINGS FOR NO N-COVERED DRUGS -- BIN:798266, PCN: ASPROD1, Group: XXXXX, ID# [id number], Questions: . THIS IS NOT INSURANCE.] Singulair 10 mg tablet RxNorm: 610325 1 TABLET(S) PO QHS 09/18/2015 1 05/31/2015 Inactive Viagra 100 mg tablet RxNorm: 528074 1 Tablet(s) PO as needed 201511/23/2018 Inactive Singulair 10 mg tablet RxNorm: 657945 1 Tablet(s) PO QHS 08/16/2015 0 08/15/2015 Inactive Singulair 10 mg tablet RxNorm: 516348 1 Tablet(s) PO QHS 08/16/2015 0 09/14/2015 Inactive duloxetine 60 mg capsule,delayed release RxNorm: 805565 1 Capsule(s) PO QD replaces fluoxetine 08/14/2015 01/24/2016 Inactive ipratropium-albuterol 0.5 mg-3 mg(2.5 mg base)/3 mL ne bulization soln RxNorm: 5953898 1 Unit Dose INH Q4H as needed 08/14/2015 06/12/2016 Inactive prednisone 20 mg tablet RxNorm: 916551 Take 3 tabs PO o nce daily x 3 days, then 2 tabs PO once daily x 3 days and then 1 tab PO once daily x 3 days 08/09/2015 08/13/2015 Inactive Symbicort 160 mcg-4.5 mcg/actuation HFA aerosol inhaler RxNo rm: 7092383 2 Puff(s) INH BID 08/09/2015 08/13/2015 Inactive Zocor 40 mg tablet RxNorm: 977547 1 Tablet(s) PO QHS 05/23/201511/11 Inactive [AttnRPh: Saving apply/adjudicate RxGRP: SG20 RxBIN:[id number] RxPCN: ID#:[id number]] Benicar HCT 40 mg-25 mg tablet RxNorm: 685962 1 Tablet(s) PO QD 10/26/2015 Inactive [SAVINGS FOR NON-COVERED JESU GS -- BIN:363498, PCN: ASPROD1, Group: XXXXX, ID# XXXXXXX, Questions: . THIS IS NOT INSURANCE.] diltiazem ER (XR/XT) 240 mg capsule,extended release,control led RxNorm: 426979 1 Capsule(s) PO QD 04/24/2015 10/20/2015 Inactive [SAVINGS FOR NO N-COVERED DRUGS -- BIN:004577, PCN: ASPROD1, Group: XXXXX, ID# XXXXXXX, Questions: . THIS IS NOT INSURANCE.] fluoxetine 40 mg capsule RxNorm: 858875 1 Capsule(s) PO QD 04/24/20 15 08/13/2015 Inactive [SAVINGS FOR NON-COVERED JESU GS -- BIN:954193, PCN: ASPROD1, Group: XXXXX, ID# XXXXXXX, Questions: . THIS IS NOT INSURANCE.] Zocor 40 mg tablet RxNorm: 680938 TABLET(S) 1 TABLET(S) PO QHS 01/2505/23/2015 Inactive [AttnRPh: Saving apply/adjud icate RxGRP:SG20 RxBIN:[id number] RxPCN:HT ID#:[id number]] metformin ER 1,000 mg tablet,extended release 24hr RxNorm: 8 06122 1 TABLET(S) PO BID 01/29/2015 10/26/2015 Inactive [SAVINGS FOR NON -COVERED DRUGS -- BIN:419263, PCN: ASPROD1, Group: XXXXX, ID# XXXXXXX, Questions: . THIS IS NOT INSURANCE.] fenofibrate micronized 134 mg capsule RxNorm: 530292 1 CAPSULE( S) PO QD 01/23/2015 01/17/2016 Inactive fenofibrate micronized 134 mg capsule RxNorm: 474063 1 Capsule( s) PO QD 11/07/2014 01/22/2015 Inactive diltiazem ER (XR/XT) 240 mg capsule,extended release,control led RxNorm: 453385 1 Capsule(s) PO QD 10/24/2014 04/24/2015 Inactive [SAVINGS FOR NO N-COVERED DRUGS -- BIN:725340, PCN: ASPROD1, Group: XXXXX, ID# XXXXXXX, Questions: . THIS IS NOT INSURANCE.] Benicar HCT 40 mg-25 mg tablet RxNorm: 975385 1 Tablet(s) PO QD 05/201404/24/2015 Inactive [SAVINGS FOR NON-COVERED JESU GS -- BIN:418118, PCN: ASPROD1, Group: XXXXX, ID# XXXXXXX, Questions: . THIS IS NOT INSURANCE.] fluoxetine 40 mg capsule RxNorm: 934210 1 Capsule(s) PO QD 10/25/19 15 04/24/2015 Inactive [SAVINGS FOR NON-COVERED JESU GS -- BIN:366092, PCN: ASPROD1, Group: XXXXX, ID# XXXXXXX, Questions: . THIS IS NOT INSURANCE.] azithromycin 500 mg tablet RxNorm: 771348 1 Tablet(s) PO QD 015 09/27/2014 Inactive [SAVINGS FOR NON-COVERED JESU GS -- BIN:865913, PCN: ASPROD1, Group: XXXXX, ID# XXXXXXX, Questions: . THIS IS NOT INSURANCE.] albuterol sulfate 2.5 mg/3 mL (0.083 %) solution for n ebulization RxNorm: 365120 3 Milliliter(s) INH ONE VIAL VIA NEBULIZER EVERY 4 HOURS 015 11/19/2014 Inactive [AttnRPh: Saving apply/adjudicate RxGRP: SG20 RxBIN:[id number] RxPCN: ID#:[id number]] Zocor 40 mg tablet RxNorm: 817946 TABLET(S) 1 TABLET(S ) PO QHS 1 TABLET(S) PO QHS 09/04/2014 02/21/2015 Inactive [AttnRPh: Saving apply/adjudicate RxGRP:SG20 RxBIN:[id number] RxPCN: ID#:[id number]] metformin ER 1,000 mg tablet,extended release 24hr RxNorm: 8 76723 1 Tablet(s) PO BID 08/04/2014 01/28/2015 Inactive [SAVINGS FOR NON -COVERED DRUGS -- BIN:355808, PCN: ASPROD1, Group: XXXXX, ID# XXXXXXX, Questions: . THIS IS NOT INSURANCE.] Bromfed DM 2 mg-30 mg-10 mg/5 mL syrup RxNorm: 8991774 1 -2 Teaspoon(s) PO Q4H as needed for cough 06/10/2014 06/19/2014 Inactive [SAVINGS FOR UN INSURED PATIENTS -- BIN:084272, PCN: ASPROD1, Group: AME08, ID# [id number], Process claim through [employer], for questions: . THIS IS NOT INSURANCE.] Augmentin 875 mg-125 mg tablet RxNorm: 286041 1 Tablet(s) PO Q12H 0 06/10/2014 06/19/2014 Inactive [AttnRPh: Saving apply/adjud icate RxGRP:SG20 RxBIN:[id number] RxPCN:HT ID#:[id number]] Zocor 40 mg tablet RxNorm: 566133 Tablet(s) 1 TABLET(S ) PO QHS 1 TABLET(S) PO QHS 05/25/2014 08/22/2014 Inactive [AttnRPh: Saving apply/adjudicate RxGRP:SG20 RxBIN:[id number] RxPCN:HT ID#:[id number]] fluoxetine 40 mg capsule RxNorm: 818932 1 Capsule(s) PO QD 04/29/20 14 10/24/2014 Inactive [AttnRPh: Saving apply/adjud icate RxGRP:SG20 RxBIN:[id number] RxPCN:HT ID#:[id number]] diltiazem ER (XR/XT) 240 mg capsule,extended release,control led RxNorm: 201854 1 Capsule(s) PO QD 04/29/2014 10/24/2014 Inactive [AttnRPh: Leonelin g apply/adjudicate RxGRP:SG20 RxBIN:[id number] RxPCN:HT ID#:[id number]] Benicar HCT 40 mg-25 mg tablet RxNorm: 721846 1 Tablet(s) PO QD 09/201310/24/2014 Inactive [AttnRPh: Saving apply/adjud icate RxGRP:SG20 RxBIN:[id number] RxPCN:HT ID#:[id number]] Zocor 40 mg tablet RxNorm: 957929 1 TABLET(S) PO QHS 1 TABLET(S ) PO QHS 03/07/2014 05/25/2014 Inactive [AttnRPh: Saving chelsie ly/adjudicate RxGRP:SG20 RxBIN:[id number] RxPCN:HT ID#:[id number]] Zocor 40 mg tablet RxNorm: 512389 1 Tablet(s) PO QHS 1 TABLET(S ) PO QHS 12/06/2013 03/05/2014 Inactive [AttnRPh: Saving chelsie ly/adjudicate RxGRP:SG20 RxBIN:[id number] RxPCN:HT ID#:[id number]] diltiazem ER (XR/XT) 240 mg capsule,extended release,control led RxNorm: 615952 1 Capsule(s) PO QD 10/25/2013 04/22/2014 Inactive [AttnRPh: Savin g apply/adjudicate RxGRP:SG20 RxBIN:[id number] RxPCN:HT ID#:[id number]] fluoxetine 40 mg capsule RxNorm: 640663 1 Capsule(s) PO QD 10/26/1904/22/2014 Inactive [AttnRPh: Saving apply/adjud icate RxGRP:SG20 RxBIN:[id number] RxPCN:HT ID#:[id number]] Zocor 40 mg tablet RxNorm: 652353 1 Tablet(s) PO QHS 1 TABLET(S ) PO QHS 09/13/2013 12/06/2013 Inactive metformin ER 1,000 mg tablet,extended release 24hr RxNorm: 8 69862 Tablet(s) PO TAKE 1 TABLET BY MOUTH TWICE DAILY (REPLACES 500MG DOSE) 07/26/201303/2015 Inactive diltiazem ER (XR/XT) 240 mg capsule,extended release,control led RxNorm: 643821 1 Capsule(s) PO QD 05/03/2013 10/25/2013 Inactive fluoxetine 40 mg capsule RxNorm: 294407 1 Capsule(s) PO QD 05/03/20 13 10/25/2013 Inactive Benicar HCT 40 mg-25 mg tablet RxNorm: 250039 1 Tablet(s) PO QD 01/201304/29/2014 Inactive Zocor 40 mg tablet RxNorm: 551691 1 Tablet(s) PO QHS 12/10/201209/13 Inactive fluoxetine 40 mg capsule RxNorm: 187052 1 Capsule(s) PO QD 11/10/19 13 05/03/2013 Inactive diltiazem ER (XR/XT) 240 mg capsule,extended release,control led RxNorm: 895973 1 Capsule(s) PO QD 11/09/2012 05/03/2013 Inactive Benicar HCT 40 mg-25 mg tablet RxNorm: 706532 1 Tablet(s) PO QD 05/03/2013 Inactive metformin ER 1,000 mg tablet,extended release 24hr RxNorm: 8 90846 Tablet(s) PO TAKE 1 TABLET BY MOUTH TWICE DAILY (REPLACES 500MG DOSE) 08/05/201206/2013 Inactive Zocor 40 mg tablet RxNorm: 764751 1 Tablet(s) PO QHS 06/15/201212/09 Inactive fluoxetine 40 mg capsule RxNorm: 838487 1 Capsule(s) PO QD 05/15/2011/08/2012 Inactive Neurontin 600 mg Tab RxNorm: 694500 1 Tablet(s) PO QHS 12/03/2011 Inactive metformin ER 1,000 mg tablet,extended release 24hr RxNorm: 8 22498 1 Tablet(s) PO BID replaces 500mg dose 12/03/2011 07/26/2013 Inactive Zocor 40 mg tablet RxNorm: 315290 1 Tablet(s) PO QHS 12/03/201106/15 Inactive fluoxetine 20 mg capsule RxNorm: 475533 1 Capsule(s) PO QD 12/03/19 12 05/24/2012 Inactive diltiazem ER (XR/XT) 240 mg capsule,extended release,control led RxNorm: 262590 1 Capsule(s) PO QD 11/15/2011 11/09/2012 Inactive Benicar HCT 40 mg-25 mg tablet RxNorm: 518116 1 Tablet(s) PO QD 02/16/2012 Inactive metformin ER 500 mg 24 hr Tab RxNorm: 896252 1 Tablet(s) PO BID 12/02/2011 Inactive Zocor 40 mg Tab RxNorm: 793012 1 Tablet(s) PO QHS 05/30/2011 11/25/19 12 Inactive fluoxetine 20 mg Cap RxNorm: 053593 1 Capsule(s) PO QD 05/28/2011 Inactive Neurontin 600 mg Tab RxNorm: 669993 1 Tablet(s) PO QHS 05/28/2011 Inactive Neurontin 600 mg Tab RxNorm: 853769 1 Tablet(s) PO QHS 02/22/201106/2011 Inactive Neurontin 600 mg Tab RxNorm: 949939 1 Tablet(s) PO QHS 01/14/2011 Inactive Neurontin 300 mg Cap RxNorm: 110366 1 Capsule(s) PO QHS 01/14/2011 Inactive Neurontin 600 mg Tab RxNorm: 551127 1 Tablet(s) PO QHS 01/14/2011 Inactive Medrol (Vipul) 4 mg Tabs in a Dose Pack RxNorm: 170712 Tablet(s) PO 0 01/02/2011 08/28/2011 Inactive as directed fluoxetine 20 mg Cap RxNorm: 790240 1 Capsule(s) PO QD 12/10/201006/2011 Inactive Zocor 40 mg Tab RxNorm: 379907 1 Tablet(s) PO QHS 12/03/2010 05/29/19 12 Inactive Neurontin 300 mg Cap RxNorm: 853919 1 Capsule(s) PO QHS 12/03/2010 Inactive Septra DS 800 mg-160 mg Tab RxNorm: 438602 1 Tablet(s) PO BID 11/2912/08/2010 Inactive diltiazem ER (XR/XT) 240 mg Continuous Release Cap RxNorm: 8 14108 1 Capsule(s) PO QD 11/20/2010 11/15/2011 Inactive Neurontin 300 mg Cap RxNorm: 987177 1 Capsule(s) PO QHS 11/06/2010 Inactive Neurontin 300 mg Cap RxNorm: 303369 1 Capsule(s) PO QHS 11/06/2010 Inactive Celebrex 200 mg Cap RxNorm: 652059 1 Capsule(s) PO BID 10/24/2010 Inactive fluoxetine 20 mg Cap RxNorm: 988463 1 Capsule(s) PO QD 06/07/201003/2011 Inactive Zocor 40 mg Tab RxNorm: 863603 1 Tablet(s) PO QHS 06/05/2010 12/02/19 11 Inactive Benicar HCT 40 mg-25 mg Tab RxNorm: 061939 1 Tablet(s) PO QD 200908/21/2011 Inactive Diltiazem 240 mg Continuous Release Cap RxNorm: 958280 1 Capsul e(s) PO QD 11/09/2009 09/02/2018 Inactive Avelox 400 mg Tab RxNorm: 495974 1 Tablet(s) PO QD 08/22/2009 010 Inactive ProAir HFA 90 mcg/actuation aerosol inhaler RxNorm: 029531 2 Puff(s) INH Q4H as needed No Start Date Active tramadol 50 mg tablet RxNorm: 245869 1-2 Tablet(s) PO TID as ne eded for pain No Start Date Active Tylenol Arthritis 650 mg Tab RxNorm: 9412418 2 Tablet(s) PO QD No Sta rt Date Active Celebrex 200 mg Cap RxNorm: 621256 1 Capsule(s) PO BID No Start Date 08/08/2015 Inactive Medrol (Vipul) 4 mg Tabs in a Dose Pack RxNorm: 875122 Tablet(s) PO N o Start Date 01/01/2011 Inactive as directed Promethazine-DM 6.25 mg-15 mg/5 mL Syrup RxNorm: 067645 1-2 Teaspoon(s) PO Q4H prn cough No Start Date 08/28/2011 Inactive Claritin 10 mg tablet RxNorm: 172239 1 Tablet(s) PO QD No Start Date 08/08/2015 Inactive Paipojnxpd-Hfeao-UBT-James-115HC Oral RxNorm: Oral No Start Da te 03/28/2019 Inactive Breo Ellipta 200 mcg-25 mcg/dose powder for inhalation RxNor m: 9257170 1 Puff(s) INH QD No Start Date 04/09/2017 Inactive metformin 500 mg Tab RxNorm: 385277 1 Tablet(s) PO QD No Start Date 0 08/17/2011 Inactive Diltiazem 240 mg Continuous Release Cap RxNorm: 759279 1 Capsul e(s) PO BID No Start Date 11/08/2009 Inactive fluoxetine 20 mg Cap RxNorm: 136863 1 Capsule(s) PO QD No Start Date 06/07/2010 Inactive Multivitamin & Mineral Formula Oral RxNorm: Oral No Start Da te 03/28/2019 Inactive Medrol (Vipul) 4 mg tablets in a dose pack RxNorm: 914692 Tablet(s) PO as directed No Start Date 05/28/2012 Inactive Fish Oil 1,000 mg Cap RxNorm: 1 Capsule(s) PO QD No Start Date 07/2018 Inactive Nexium 40 mg Cap RxNorm: 274789 1 Capsule(s) PO QD No Start Date 07/24 Inactive fluticasone 50 mcg/actuation nasal spray,suspension RxNorm: 8874370 [address] [place] NASAL QD to each nostril No Start Date 08/03/2017 Inactive Viagra 100 mg tablet RxNorm: 977750 1 Tablet(s) PO as needed No Sta rt Date 09/17/2015 Inactive prednisone 20 mg tablet RxNorm: 054221 1 Tablet(s) PO B ID for 4 days then 1 po daily for 4 days No Start Date 11/23/2018 Inactive Benicar HCT 40 mg-25 mg Tab RxNorm: 527473 1 Tablet(s) PO QD No Sta rt [...] Date S ervice Location MICROALBUMIN URINE RANDOM 72622 MICRL MG/L 5.8 MG/L 03/2011 Unknown MICROALBUMIN URINE RANDOM 95942 XM.ALB/CRE 5.2 MG/GCR Unknown MICROALBUMIN URINE RANDOM 65142 CREAT MG/D 111 MG/DL 03/2011 Unknown MICROALBUMIN URINE RANDOM 37106 CRE/100 1.11 G/L 12/24 Unknown Procedures Procedure Codes Date FLU VACC PRSV FREE INC ANTIG 65 AND OLDER CPT-4: 01488 03/04/2019 ADMIN PNEUMOCOCCAL VACCINE CPT-4: G0009 03/04/2019 ADMIN INFLUENZA VIRUS VAC CPT-4: G0008 03/04/2019 FLU VACC PRSV FREE INC ANTIG 65 AND OLDER CPT-4: 65407 03/04/2019 PNEUMOCOCCAL VACC 23 [facility] IM CPT-4: 24487 03/04/2019 THER/PROPH/DIAG INJ SC/IM CPT-4: 04508 08/11/2018 TRIAMCINOLONE ACET INJ NOS CPT-4: J3301 08/11/2018 DEXAMETHASONE SODIUM PHOS CPT-4: J1100 08/11/2018 THER/PROPH/DIAG INJ SC/IM CPT-4: 06227 07/16/2018 METHYLPREDNISOLONE INJECTION CPT-4: J2930 07/16/2018 INFLUENZA ASSAY W/OPTIC CPT-4: 63866 07/16/2018 THER/PROPH/DIAG INJ SC/IM CPT-4: 75718 07/13/2018 TRIAMCINOLONE ACET INJ NOS CPT-4: J3301 07/13/2018 THER/PROPH/DIAG INJ SC/IM CPT-4: 44734 05/04/2018 METHYLPREDNISOLONE INJECTION CPT-4: J2930 05/04/2018 FLU VACC PRSV FREE INC ANTIG 65 AND OLDER CPT-4: 19574 02/10/2018 PNEUMOCOCCAL VACC 13 [facility] IM CPT-4: 57419 02/10/2018 ADMIN INFLUENZA VIRUS VAC CPT-4: G0008 02/10/2018 ADMIN PNEUMOCOCCAL VACCINE CPT-4: G0009 02/10/2018 THER/PROPH/DIAG INJ SC/IM CPT-4: 14459 09/09/2017 TRIAMCINOLONE ACET INJ NOS CPT-4: J3301 09/09/2017 ALBUTEROL NON-COMP UNIT CPT-4: J7613 04/10/2017 AIRWAY INHALATION TREATMENT CPT-4: 74535 04/10/2017 PRESCRIP TRANSMIT VIA ERX SY CPT-4: G8553 04/10/2017 FLU VACC PRSV FREE INC ANTIG 65 AND OLDER CPT-4: 36671 03/28/2017 ADMIN INFLUENZA VIRUS VAC CPT-4: G0008 03/28/2017 PRESCRIP TRANSMIT VIA ERX SY CPT-4: G8553 08/27/2016 PRESCRIP TRANSMIT VIA ERX SY CPT-4: G8553 06/14/2016 ALBUTEROL NON-COMP UNIT CPT-4: J7613 06/13/2016 AIRWAY INHALATION TREATMENT CPT-4: 89155 06/13/2016 PRESCRIP TRANSMIT VIA ERX SY CPT-4: [...] CPT-4: G8553 11/07/2014 THER/PROPH/DIAG INJ SC/IM CPT-4: 30451 09/21/2014 METHYLPREDNISOLONE INJECTION CPT-4: J2930 09/21/2014 PRESCRIP TRANSMIT VIA ERX SY CPT-4: G8553 09/21/2014 PRESCRIP TRANSMIT VIA ERX SY CPT-4: G8553 06/10/2014 URINALYSIS NONAUTO W/O SCOPE CPT-4: 35867 06/01/2012 PRESCRIP TRANSMIT VIA ERX SY CPT-4: G8553 05/25/2012 PRESCRIP TRANSMIT VIA ERX SY CPT-4: G8553 12/03/2011 CUR TOBACCO NON-USER CPT-4: G8457 05/30/2011 PRESCRIP TRANSMIT VIA ERX SY CPT-4: G8553 05/30/2011 URINALYSIS NONAUTO W/O SCOPE CPT-4: 41303 01/01/2011 URINE CULTURE/ COLONY COUNT CPT-4: 68769 01/01/2011 CUR TOBACCO NON-USER CPT-4: G8457 01/01/2011 [...] 1: 114/68 Code: 8480-6 BMI: 43.5 Code: 09766-9 Heart Rate 1: 52 bpm Height: 6'1" [...] 1: 136/72 Code: 8480-6 BMI: 42.7 Code: 87590-6 Heart Rate 1: 60 bpm Height: 6'1" Respiratory Rate: 22 bpm SpO2: 95% Tempera ture: 37.1 (C) / 98.7 (F) Weight: 324 lbs 02/10/2018 Blood Pressure 1: 146/78 Code: 8480-6 BMI: 42.4 Code: 42402-6 Heart Rate 1: 64 bpm Height: 6'1" Respiratory Rate: 22 bpm SpO2: 95% Tempera ture: 36.5 (C) / 97.7 (F) Weight: 321 lbs 11/05/2017 Blood Pressure 1: 128/84 Code: 8480-6 BMI: 42.9 Code: 42170-9 Heart Rate 1: 52 bpm Height: 6'1" Respiratory Rate: 22 bpm SpO2: 95% Tempera ture: 36.3 (C) / 97.3 (F) Weight: 325 lbs 09/09/2017 Blood Pressure 1: 162/90 Code: 8480-6 BMI: 42.5 Code: 71130-7 Heart Rate 1: 60 bpm Height: 6'1" Respiratory Rate: 24 bpm SpO2: 95% Tempera ture: 36.4 (C) / 97.6 (F) Weight: 322 lbs 08/07/2017 Blood Pressure 1: 152/90 Code: 8480-6 BMI: 42.2 Code: 70454-4 Heart Rate 1: 60 bpm Height: 6'1" Respiratory Rate: 26 bpm SpO2: 94% Tempera ture: 36.6 (C) / 97.8 (F) Weight: 320 lbs 08/04/2017 Blood Pressure 1: 150/86 Code: 8480-6 BMI: 42.7 Code: 68537-3 Heart Rate 1: 64 bpm Height: 6'1" Respiratory Rate: 20 bpm SpO2: 94% Tempera ture: 36.3 (C) / 97.3 (F) Weight: 324 lbs 06/04/2017 Blood Pressure 1: 164/90 Code: 8480-6 Heart Rate 1: 60 bpm Respiratory Rate: 24 bpm SpO2: 94% Temperature: 36.8 (C) / 98.3 (F) 06/02/2017 Blood Pressure 1: 162/80 Code: 8480-6 BMI: 42.9 Code: 26915-0 Heart Rate 1: 66 bpm Height: 6'1" Respiratory Rate: 22 bpm SpO2: 98% Tempera ture: 36.6 (C) / 97.8 (F) Weight: 325 lbs 05/05/2017 Blood Pressure 1: 164/94 Code: 8480-6 BMI: 41.4 Code: 25841-2 Heart Rate 1: 64 bpm Height: 6'1" Respiratory Rate: 22 bpm SpO2: 95% Tempera ture: 36.4 (C) / 97.5 (F) Weight: 314 lbs 04/10/2017 Blood Pressure 1: 136/78 Code: 8480-6 BMI: 42.0 Code: 64404-2 Heart Rate 1: 76 bpm Height: 6'1" Respiratory Rate: 24 bpm SpO2: 92% Tempera ture: 35.9 (C) / 96.7 (F) Weight: 318 lbs 02/03/2017 Blood Pressure 1: 134/82 Code: 8480-6 BMI: 41.7 Code: 08338-7 Heart Rate 1: 72 bpm Height: 6'1" Respiratory Rate: 24 bpm SpO2: 95% Tempera ture: 36.1 (C) / 97.0 (F) Weight: 316 lbs 10/30/2016 Blood Pressure 1: 126/74 Code: 8480-6 BMI: 41.3 Code: 40340-9 Heart Rate 1: 68 bpm Height: 6'1" Respiratory Rate: 20 bpm Temperature: 37 .1 (C) / 98.8 (F) Weight: 313 lbs 08/30/2016 Blood Pressure 1: 146/80 Code: 8480-6 BMI: 41.7 Code: 52972-4 Heart Rate 1: 64 bpm Height: 6'1" Respiratory Rate: 24 bpm SpO2: 94% Tempera ture: 36.6 (C) / 97.8 (F) Weight: 316 lbs 08/27/2016 Blood Pressure 1: 124/78 Code: 8480-6 Heart Rate 1: 66 bpm Height: 6'2" Respiratory Rate: 18 bpm SpO2: 94% Temperature: 36.6 (C) / 97.8 (F) Weight: 07/02/2016 Blood Pressure 1: 126/78 Code: 8480-6 BMI: 41.4 Code: 50227-6 Heart Rate 1: 68 bpm Height: 6'1" Respiratory Rate: 24 bpm SpO2: 94% Tempera ture: 36.6 (C) / 97.8 (F) Weight: 314 lbs 06/14/2016 Blood Pressure 1: 146/82 Code: 8480-6 Heart Rate 1: 80 bpm Respiratory Rate: 20 bpm SpO2: 95% Temperature: 37.3 (C) / 99.2 (F) 06/13/2016 Blood Pressure 1: 146/84 Code: 8480-6 BMI: 40.5 Code: 44216-8 Heart Rate 1: 66 bpm Height: 6'1" Respiratory Rate: 28 bpm SpO2: 93% Tempera ture: 35.8 (C) / 96.4 (F) Weight: 307 lbs 05/14/2016 Blood Pressure 1: 146/90 Code: 8480-6 BMI: 41.2 Code: 89758-3 Heart Rate 1: 68 bpm Height: 6'1" Respiratory Rate: 26 bpm Temperature: 36 .8 (C) / 98.2 (F) Weight: 312 lbs 04/29/2016 Blood Pressure 1: 152/90 Code: 8480-6 BMI: 41.0 Code: 47735-7 Heart Rate 1: 68 bpm Height: 6'1" Respiratory Rate: 26 bpm SpO2: 94% Tempera ture: 36.1 (C) / 96.9 (F) Weight: 311 lbs 04/22/2016 Blood Pressure 1: 152/94 Code: 8480-6 BMI: 40.9 Code: 36518-4 Heart Rate 1: 68 bpm Height: 6'1" Respiratory Rate: 24 bpm SpO2: 94% Tempera ture: 36.2 (C) / 97.2 (F) Weight: 310 lbs 04/01/2016 Blood Pressure 1: 156/78 Code: 8480-6 BMI: 40.6 Code: 75934-9 Heart Rate 1: 84 bpm Height: 6'1" Respiratory Rate: 22 bpm SpO2: 95% Tempera ture: 37.1 (C) / 98.7 (F) Weight: 308 lbs 11/30/2015 Blood Pressure 1: 142/80 Code: 8480-6 BMI: 40.5 Code: 33524-3 Heart Rate 1: 88 bpm Height: 6'1" Respiratory Rate: 22 bpm Temperature: 36 .2 (C) / 97.2 (F) Weight: 307 lbs 08/29/2015 Blood Pressure 1: 132/70 Code: 8480-6 BMI: 40.0 Code: 94746-4 Heart Rate 1: 76 bpm Height: 6'1" Respiratory Rate: 24 bpm SpO2: 96% Tempera ture: 36.7 (C) / 98.0 (F) Weight: 303 lbs 08/14/2015 Blood Pressure 1: 126/80 Code: 8480-6 BMI: 39.4 Code: 89860-3 Heart Rate 1: 92 bpm Height: 6'1" Respiratory Rate: 24 bpm SpO2: 94% Tempera ture: 37.8 (C) / 100.0 (F) Weight: 299 lbs 08/09/2015 Blood Pressure 1: 146/82 Code: 8480-6 Heart Rate 1: 82 bpm Respiratory Rate: 22 bpm SpO2: 93% Temperature: 35.9 (C) / 96.6 (F) We ight: 310 lbs 05/22/2015 Blood Pressure 1: 156/76 Code: 8480-6 BMI: 41.0 Code: 50100-4 Heart Rate 1: 100 bpm Height: 6'1" Respiratory Rate: 22 bpm Temperature: 37 .2 (C) / 98.9 (F) Weight: 311 lbs 02/13/2015 Blood Pressure 1: 166/90 Code: 8480-6 BMI: 41.2 Code: 12126-0 Heart Rate 1: 72 bpm Height: 6'1" Respiratory Rate: 24 bpm SpO2: 93% Tempera ture: 36.9 (C) / 98.5 (F) Weight: 312 lbs 11/07/2014 Blood Pressure 1: 134/70 Code: 8480-6 BMI: 40.5 Code: 76103-8 Heart Rate 1: 76 bpm Height: 6'1" Respiratory Rate: 24 bpm Temperature: 36 .9 (C) / 98.4 (F) Weight: 307 lbs 10/04/2014 Blood Pressure 1: 144/86 Code: 8480-6 BMI: 40.1 Code: 93829-2 Heart Rate 1: 76 bpm Height: 6'1" Respiratory Rate: 28 bpm Temperature: 36 .6 (C) / 97.9 (F) Weight: 304 lbs 09/22/2014 Blood Pressure 1: 142/80 Code: 8480-6 BMI: 40.0 Code: 03881-7 Heart Rate 1: 80 bpm Height: 6'1" Respiratory Rate: 22 bpm SpO2: 96% Tempera ture: 36.6 (C) / 97.8 (F) Weight: 303 lbs 09/21/2014 Blood Pressure 1: 160/66 Code: 8480-6 BMI: 40.0 Code: 79659-7 Heart Rate 1: 90 bpm Height: 6'1" Respiratory Rate: 26 bpm SpO2: 94% Tempera ture: 35.7 (C) / 96.2 (F) Weight: 303 lbs 06/28/2014 Blood Pressure 1: 132/80 Code: 8480-6 BMI: 41.0 Code: 31880-1 Heart Rate 1: 64 bpm Height: 6' Respiratory Rate: 20 bpm Temperature: 36 .7 (C) / 98.0 (F) Weight: 302 lbs 06/10/2014 Blood Pressure 1: 152/70 Code: 8480-6 BMI: 41.1 Code: 21423-0 Heart Rate 1: 76 bpm Height: 6' Respiratory Rate: 20 bpm Temperature: 36 .6 (C) / 97.8 (F) Weight: 303 lbs 03/29/2014 Blood Pressure 1: 132/78 Code: 8480-6 BMI: 40.6 Code: 54935-6 Heart Rate 1: 84 bpm Height: 6' Respiratory Rate: 22 bpm Temperature: 37 .1 (C) / 98.8 (F) Weight: 299 lbs 11/30/2013 Blood Pressure 1: 136/84 Code: 8480-6 BMI: 39.2 Code: 38374-7 Heart Rate 1: 76 bpm Height: 6' Respiratory Rate: 20 bpm Temperature: 36 .8 (C) / 98.2 (F) Weight: 289 lbs 08/03/2013 Blood Pressure 1: 144/80 Code: 8480-6 Heart Rate 1: 86 bpm Respiratory Rate: 20 bpm Temperature: 36.6 (C) / 97.8 (F) Weight: 296 lbs 04/06/2013 Blood Pressure 1: 142/90 Code: 8480-6 BMI: 40.3 Code: 84676-0 Heart Rate 1: 88 bpm Height: 6' Respiratory Rate: 20 bpm Temperature: 36 .6 (C) / 97.8 (F) Weight: 297 lbs 12/01/2012 Blood Pressure 1: 124/78 Code: 8480-6 BMI: 38.7 Code: 80782-9 Heart Rate 1: 76 bpm Height: 6' Respiratory Rate: 20 bpm Temperature: 37 .2 (C) / 98.9 (F) Weight: 285 lbs 08/04/2012 Blood Pressure 1: 128/80 Code: 8480-6 BMI: 38.2 Code: 90164-7 Heart Rate 1: 76 bpm Height: 6' Respiratory Rate: 20 bpm Temperature: 37 .0 (C) / 98.6 (F) Weight: 282 lbs 05/29/2012 Blood Pressure 1: 138/78 Code: 8480-6 BMI: 36.6 Code: 94843-9 Heart Rate 1: 66 bpm Height: 6' Temperature: 36.7 (C) / 98.1 (F) Weight: 270 lbs 05/25/2012 Blood Pressure 1: 128/72 Code: 8480-6 BMI: 39.9 Code: 00235-6 Heart Rate 1: 74 bpm Height: 6' Temperature: 36.1 (C) / 97.0 (F) Weight: 294 lbs 04/07/2012 Blood Pressure 1: 124/76 Code: 8480-6 BMI: 39.9 Code: 41559-9 Heart Rate 1: 72 bpm Height: 6' Respiratory Rate: 20 bpm Temperature: 36 .9 (C) / 98.5 (F) Weight: 294 lbs 12/16/2011 Blood Pressure 1: 128/80 Code: 8480-6 BMI: 40.8 Code: 52366-2 Heart Rate 1: 74 bpm Height: 6' Temperature: 36.6 (C) / 97.8 (F) Weight: 301 lbs 12/03/2011 Blood Pressure 1: 132/76 Code: 8480-6 BMI: 40.8 Code: 87046-3 Heart Rate 1: 68 bpm Height: 6' Respiratory Rate: 20 bpm Temperature: 36 .8 (C) / 98.2 (F) Weight: 301 lbs 08/29/2011 Blood Pressure 1: 140/68 Code: 8480-6 BMI: 40.8 Code: 74985-1 Heart Rate 1: 80 bpm Height: 6' Respiratory Rate: 20 bpm Temperature: 36 .4 (C) / 97.6 (F) Weight: 301 lbs 05/30/2011 Blood Pressure 1: 134/82 Code: 8480-6 BMI: 41.5 Code: 99774-8 Heart Rate 1: 76 bpm Height: 6' [...] 1: 126/72 Code: 8480-6 BMI: 41.2 Code: 85481-6 Heart Rate 1: 76 bpm Height: 6' [...] 1: 152/90 Code: 8480-6 BMI: 37.7 Code: 97588-2 Heart Rate 1: 92 bpm Height: 6'1" [...] dm Encounters Encounter Performer Location Codes Date ([id number]) OFFICE/OUTPATIENT VISIT EST Diagnosis: Chronic obstructive pulmonary disease, unspecified[ICD10: J44.9] Diagnosis: Essential (primary) hypertension[ICD10: I10] Diagnosis: Mixed hyperlipidemia[ICD10: E78.2] Diagnosis: Type 2 diabetes mellitus with hyperglycemia[ICD10: E11.65] Neela MURILLO [employer] CPT-4: 38851 08/30/2019 ([id number]) OFFICE/OUTPATIENT VISIT EST Diagnosis: Chronic obstructive pulmonary disease with (acute) exacerbation[ICD10: J44.1] Neela MURILLO [employer] CPT- 4: 25048 08/10/2019 ([id number]) OFFICE/OUTPATIENT VISIT EST Diagnosis: Sore on toe[ICD10: L98.9] Neela Cunningham [facility] [facility] CPT-4: 72456 07/06/2019 ([id number]) OFFICE/OUTPATIENT VISIT EST Diagnosis: Advanced chronic obstructive pulmonary disease[ICD10: J44.9] 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] Neela QURESHI [employer] CPT-4: 20889 05/10/2019 ([id number]) OFFICE/OUTPATIENT VISIT EST Diagnosis: Chronic obstructive pulmonary disease with (acute) exacerbation[ICD10: J44.1] Diagnosis: Hypokalemia[ICD10: E87.6] 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] Neela QURESHI [employer] CPT-4: 30717 03/29/2019 ([id number]) NURSE/OUTPATIENT VISIT EST Diagnosis: PNEUMOCOCCAL VACCINE[ICD10: Z23] Neela HYMAN DO [facility] CPT-4: 51703 03/04/2019 ([id number]) OFFICE/OUTPATIENT VISIT EST Diagnosis: Chronic obstructive pulmonary disease with (acute) exacerbation[ICD10: J44.1] Diagnosis: Other nonspecific abnormal finding of lung field[ICD10: R91.8] Neela HYMAN DO [facility] CPT-4: 36122 01/05/2019 ([id number]) OFFICE/OUTPATIENT VISIT EST Diagnosis: Solitary pulmonary nodule[ICD10: R91.1] 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] Diagnosis: Tinea corporis[ICD10: B35.4] Neela HYMAN DO [facility] CPT-4: 05272 12/09/2018 ([id number]) OFFICE/OUTPATIENT VISIT EST Diagnosis: COUGH[ICD10: R05] Diagnosis: Chronic obstructive pulmonary disease, unspecified[ICD10: J44.9] Diagnosis: Other disorders of lung[ICD10: J98.4] Diagnosis: Other nonspecific abnormal finding of lung field[ICD10: R91.8] Neela HYMAN DO [facility] CPT-4: 49569 11/24/2018 ([id number]) OFFICE/OUTPATIENT VISIT EST Diagnosis: Pneumonia, unspecified organism[ICD10: J18.9] Amita Santiago YHMAN DO [facility] CPT-4: 99561 09/16/2018 ([id number]) OFFICE/OUTPATIENT VISIT EST Diagnosis: Pneumonia, unspecified organism[ICD10: J18.9] Neela HYMAN DO [facility] CPT-4: 68987 09/03/2018 ([id number]) OFFICE/OUTPATIENT VISIT EST Diagnosis: Personal history of pneumonia (recurrent)[ICD10: Z87.01] Diagnosis: Cough[ICD10: R05] Diagnosis: Essential (primary) hypertension[ICD10: I10] Diagnosis: Type 2 diabetes mellitus with hyperglycemia[ICD10: E11.65] Amitacalvin MURILLO [employer] [facility] CPT-4: 75662 08/27/2018 OFFICE/OUTPATIENT VISIT EST Diagnosis: Pneumonia, unspecified organism[ICD10: J18.9] Diagnosis: Chronic obstructive pulmonary disease with (acute) exacerbation[ICD10: J44.1] Diagnosis: Other specified symptoms and signs involving the circulatory and respiratory systems[ICD10: R09.89] Diagnosis: Essential (primary) hypertension[ICD10: I10] Amita MURILLO [facility] [employer] [facility] CPT-4: 82794 08/13/2018 OFFICE/OUTPATIENT VISIT EST Diagnosis: Pneumonia, unspecified organism[ICD10: J18.9] Diagnosis: Other specified symptoms and signs involving the circulatory and respiratory systems[ICD10: R09.89] Amita MURILLO [facility] [employer] [facility] CPT-4: 34637 08/11/2018 ([id number]) OFFICE/OUTPATIENT VISIT EST Diagnosis: Dyspnea, unspecified[ICD10: R06.00] Diagnosis: Chronic obstructive pulmonary disease with (acute) exacerbation[ICD10: J44.1] Diagnosis: Pneumonia, unspecified organism[ICD10: J18.9] Amita MURILLO Julissa [employer] [facility] CPT-4: 60366 07/16/2018 ([id number]) OFFICE/OUTPATIENT VISIT EST Diagnosis: Acute bronchitis due to other specified organisms[ICD10: J20.8] Diagnosis: Cough[ICD10: R05] Amita MURILLO Julissa [employer] [facility] T-4: 87628 07/13/2018 ([id number]) OFFICE/OUTPATIENT VISIT EST Diagnosis: Essential (primary) hypertension[ICD10: I10] Diagnosis: Chronic obstructive pulmonary disease, unspecified[ICD10: J44.9] Diagnosis: Type 2 diabetes mellitus with hyperglycemia[ICD10: E11.65] Diagnosis: Mixed hyperlipidemia[ICD10: E78.2] [facility] [employer] [facility] CPT-4: 01346 06/03/2018 ([id number]) OFFICE/OUTPATIENT VISIT EST Diagnosis: Chronic obstructive pulmonary disease, unspecified[ICD10: J44.9] Gely Katiuska MURILLO [employer] [facility] CPT-4: 28663 05/04/2018 ([id number]) OFFICE/OUTPATIENT VISIT EST Diagnosis: Essential (primary) hypertension[ICD10: I10] Diagnosis: Localized edema[ICD10: R60.0] Neela HYMAN DO [facility] CPT-4: 91609 03/03/2018 ([id number]) OFFICE/OUTPATIENT VISIT EST Diagnosis: Localized edema[ICD10: R60.0] Neela HYMAN DO [facility] CPT-4: 66750 02/17/2018 ([id number]) OFFICE/OUTPATIENT VISIT EST Diagnosis: FLU VACCINE[ICD10: Z23] Diagnosis: PNEUMOCOCCAL VACCINE[ICD10: Z23] Diagnosis: Type 2 diabetes mellitus without complications[ICD10: E11.9] Diagnosis: Mixed hyperlipidemia[ICD10: E78.2] Diagnosis: Essential (primary) hypertension[ICD10: I10] Diagnosis: Localized edema[ICD10: R60.0] Diagnosis: Chronic obstructive pulmonary disease, unspecified[ICD10: J44.9] Neela HYMAN DO [facility] CPT-4: 96084 02/10/2018 ([id number]) OFFICE/OUTPATIENT VISIT EST Diagnosis: Type 2 diabetes mellitus with hyperglycemia[ICD10: E11.65] Diagnosis: Mixed hyperlipidemia[ICD10: E78.2] Diagnosis: Essential (primary) hypertension[ICD10: I10] Diagnosis: Chronic obstructive pulmonary disease, unspecified[ICD10: J44.9] Diagnosis: Cutaneous abscess of back [any part, except buttock][ICD10: L02.212] Neela HYMAN DO [facility] CPT-4: 71071 11/05/2017 ([id number]) OFFICE/OUTPATIENT VISIT EST Diagnosis: Allergic urticaria[ICD10: L50.0] Gely HYMAN DO [facility] CPT-4: 59017 09/09/2017 ([id number]) OFFICE/OUTPATIENT VISIT EST Diagnosis: Generalized enlarged lymph nodes[ICD10: R59.1] Diagnosis: Acute gastritis without bleeding[ICD10: K29.00] Gely HYMAN DO [facility] CPT-4: 12381 08/07/2017 ([id number]) OFFICE/OUTPATIENT VISIT EST Diagnosis: Type 2 diabetes mellitus without complications[ICD10: E11.9] Diagnosis: Mixed hyperlipidemia[ICD10: E78.2] Diagnosis: Essential (primary) hypertension[ICD10: I10] Neela HYMAN [facility] CPT-4: 80020 08/04/2017 ([id number]) OFFICE/OUTPATIENT VISIT EST Diagnosis: Zoster without complications[ICD10: B02.9] Diagnosis: Acute sialoadenitis[ICD10: K11.21] Gely HYMAN [facility] CPT-4: 20746 06/04/2017 OFFICE/OUTPATIENT VISIT EST Diagnosis: Zoster without complications[ICD10: B02.9] Diagnosis: Acute sialoadenitis[ICD10: K11.21] [facility] C[facility]: 81152 06/02/2017 ([id number]) OFFICE/OUTPATIENT VISIT EST Diagnosis: Type 2 diabetes mellitus without complications[ICD10: E11.9] Diagnosis: Mixed hyperlipidemia[ICD10: E78.2] Diagnosis: Essential (primary) hypertension[ICD10: I10] Diagnosis: Chronic obstructive pulmonary disease, unspecified[ICD10: J44.9] Neela HYMAN [facility] CPT-4: 78240 05/05/2017 OFFICE/OUTPATIENT VISIT EST Diagnosis: Chronic obstructive pulmonary disease with acute lower respiratory infection[ICD10: J44.0] Diagnosis: Impacted cerumen, bilateral[ICD10: H61.23] Gely HYMAN [facility] CPT-4: 97250 04/10/2017 ([id number]) OFFICE/OUTPATIENT VISIT EST Diagnosis: FLU VACCINE[ICD10: Z23] Neela BUI [facility] CPT-4: 92616 03/28/2017 ([id number]) OFFICE/OUTPATIENT VISIT EST Diagnosis: Type 2 diabetes mellitus without complications[ICD10: E11.9] Diagnosis: Mixed hyperlipidemia[ICD10: E78.2] Diagnosis: Essential (primary) hypertension[ICD10: I10] Diagnosis: Chronic obstructive pulmonary disease, unspecified[ICD10: J44.9] Neela HYMAN DO [facility] CPT-4: 87788 02/03/2017 ([id number]) OFFICE/OUTPATIENT VISIT EST Diagnosis: Type 2 diabetes mellitus with hyperglycemia[ICD10: E11.65] Diagnosis: Mixed hyperlipidemia[ICD10: E78.2] Diagnosis: Essential (primary) hypertension[ICD10: I10] Diagnosis: Chronic obstructive pulmonary disease, unspecified[ICD10: J44.9] Neela HYMAN DO [facility] CPT-4: 88922 10/30/2016 ([id number]) NO CHARGE Diagnosis: Acute bronchitis, unspecified[ICD10: J20.9] Sammi HYMAN DO [facility] CPT-4: 83858 08/30/2016 ([id number]) OFFICE/OUTPATIENT VISIT EST Diagnosis: Acute bronchitis, unspecified[ICD10: J20.9] Diagnosis: Other seasonal allergic rhinitis[ICD10: J30.2] Sammi HYMAN [facility] CPT-4: 26764 08/27/2016 ([id number]) OFFICE/OUTPATIENT VISIT EST Diagnosis: Type 2 diabetes mellitus without complications[ICD10: E11.9] Diagnosis: Mixed hyperlipidemia[ICD10: E78.2] Diagnosis: Essential (primary) hypertension[ICD10: I10] Neela HYMAN DO [facility] CPT-4: 90158 07/02/2016 ([id number]) OFFICE/OUTPATIENT VISIT EST Diagnosis: Acute bronchitis, unspecified[ICD10: J20.9] Sammi HYMAN DO [facility] CPT-4: 35202 06/14/2016 ([id number]) OFFICE/OUTPATIENT VISIT EST Diagnosis: Acute bronchitis, unspecified[ICD10: J20.9] Sammi HYMAN DO [facility] CPT-4: 40145 06/13/2016 ([id number]) OFFICE/OUTPATIENT VISIT EST Diagnosis: Essential (primary) hypertension[ICD10: I10] Neela HYMAN DO [facility] CPT-4: 99855 05/14/2016 ([id number]) OFFICE/OUTPATIENT VISIT EST Diagnosis: Essential (primary) hypertension[ICD10: I10] Neela HYMAN DO [facility] CPT-4: 89995 04/29/2016 ([id number]) OFFICE/OUTPATIENT VISIT EST Diagnosis: Unspecified abdominal pain[ICD10: R10.9] Diagnosis: Left lower quadrant pain[ICD10: R10.32] Diagnosis: Left upper quadrant pain[ICD10: R10.12] Diagnosis: Essential (primary) hypertension[ICD10: I10] Neela HYMAN DO [facility] CPT-4: 90443 04/22/2016 ([id number]) OFFICE/OUTPATIENT VISIT EST Diagnosis: Type 2 diabetes mellitus without complications[ICD10: E11.9] Diagnosis: Mixed hyperlipidemia[ICD10: E78.2] Diagnosis: Essential (primary) hypertension[ICD10: I10] Neela HYMAN DO [facility] CPT-4: 66271 04/01/2016 ([id number]) OFFICE/OUTPATIENT VISIT EST Diagnosis: Type 2 diabetes mellitus with hyperglycemia[ICD10: E11.65] Diagnosis: Mixed hyperlipidemia[ICD10: E78.2] Diagnosis: Essential (primary) hypertension[ICD10: I10] Neela HYMAN [facility] CPT-4: 07515 11/30/2015 ([id number]) OFFICE/OUTPATIENT VISIT EST Diagnosis: Type 2 diabetes mellitus with diabetic neuropathy, unspecified[ICD10: E11.40] Diagnosis: Essential (primary) hypertension[ICD10: I10] Diagnosis: Mixed hyperlipidemia[ICD10: E78.2] Neela HYMAN [facility] CPT-4: 79652 08/29/2015 ([id number]) OFFICE/OUTPATIENT VISIT EST Diagnosis: COUGH[ICD10: R05] Diagnosis: Wheezing[ICD10: R06.2] Diagnosis: Type 2 diabetes mellitus with diabetic neuropathy, unspecified[ICD10: E11.40] Neela HYMAN DO [facility] CPT-4: 37313 08/14/2015 ([id number]) OFFICE/OUTPATIENT VISIT EST Diagnosis: Other seasonal allergic rhinitis[ICD10: J30.2] Diagnosis: Dyspnea, unspecified[ICD10: R06.00] Diagnosis: Wheezing[ICD10: R06.2] Sammi MIRZALINE Octavio HYMAN DO [facility] CPT-4: 52247 08/09/2015 ([id number]) OFFICE/OUTPATIENT VISIT EST Diagnosis: Essential (primary) hypertension[ICD10: I10] Diagnosis: Type 2 diabetes mellitus with hyperglycemia[ICD10: E11.65] Diagnosis: Mixed hyperlipidemia[ICD10: E78.2] Neela Zhanginna RONNA STERLING SMendez HYMAN [employer] [facility] CPT-4: 57476 05/22/2015 ([id number]) OFFICE/OUTPATIENT VISIT EST Diagnosis: 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] Diagnosis: - I - HYPERTENSION[ICD9: 401.9] Diagnosis: - I - HYPERLIPIDEMIA NEC/NOS[ICD9: 272.4] Diagnosis: Left hand paresthesia[ICD9: 782.0] Neela STERLING SMendez HYMAN [employer] [facility] CPT-4: 17349 02/13/2015 ([id number]) OFFICE/OUTPATIENT VISIT EST Diagnosis: HYPERLIPIDEMIA NEC/NOS[ICD9: 272.4] Diagnosis: 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] Neela Sergegemmainna MIRZANEELA Octavio ZHANGER [employer] [facility] CPT-4: 55295 11/07/2014 ([id number]) OFFICE/OUTPATIENT VISIT EST Diagnosis: ALLERGIC RHINITIS[ICD9: 477.9] Diagnosis: WHEEZING[ICD9: 786.07] Neela Zhanginna NEELA Octavio BADILLO [employer] [facility] CPT-4: 04523 10/04/2014 ([id number]) OFFICE/OUTPATIENT VISIT EST Diagnosis: BRONCHITIS, ACUTE[ICD9: 466.0] Diagnosis: WHEEZING[ICD9: 786.07] Loren WallaceNerisvanessameño NEELA Octavio ZHANGE R [facility] CPT-4: 62790 09/22/2014 ([id number]) OFFICE/OUTPATIENT VISIT EST Diagnosis: DYSPNEA[ICD9: 786.09] Diagnosis: WHEEZING[ICD9: 786.07] Diagnosis: Arrhythmia[ICD9: 427.9] Loren WallaceViraj NEELA Octavio LAWLERND ER [employer] [facility] CPT-4: 75693 09/21/2014 ([id number]) OFFICE/OUTPATIENT VISIT EST Diagnosis: 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, 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] Diagnosis: - I - HYPERLIPIDEMIA NEC/NOS[ICD9: 272.4] Diagnosis: - I - HYPERTENSION[ICD9: 401.9] Neela MURILLO JulissaMendez [facility] CPT-[facility]: 08618 06/28/2014 OFFICE/OUTPATIENT VISIT EST Diagnosis: SINUSITIS, ACUTE[ICD9: 461.9] Diagnosis: OTITIS MEDIA NOS[ICD9: 382.9] Sarah Jong Cunningham [facility] CPT-4: 33453 06/10/2014 ([id number]) OFFICE/OUTPATIENT VISIT EST Diagnosis: 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] Diagnosis: - I - HYPERLIPIDEMIA NEC/NOS[ICD9: 272.4] Diagnosis: - I - HYPERTENSION[ICD9: 401.9] Neela MURILLO JulissaMendez [facility] CPT-4: 32501 03/29/2014 ([id number]) OFFICE/OUTPATIENT VISIT EST Diagnosis: 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] Diagnosis: - I - HYPERTENSION[ICD9: 401.9] Diagnosis: - I - HYPERLIPIDEMIA NEC/NOS[ICD9: 272.4] Diagnosis: Hand lesion[ICD9: 709.9] Neela DOS [facility]OS [facility] CPT-4: 93958 11/30/2013 ([id number]) OFFICE/OUTPATIENT VISIT EST Diagnosis: 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] Diagnosis: HYPERLIPIDEMIA NEC/NOS[ICD9: 272.4] Diagnosis: HYPERTENSION[ICD9: 401.9] Neela Cunningham [facility] CPT-4: 13878 08/03/2013 ([id number]) OFFICE/OUTPATIENT VISIT EST Diagnosis: 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, 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] Diagnosis: HYPERTENSION[ICD9: 401.9] Diagnosis: HYPERLIPIDEMIA NEC/NOS[ICD9: 272.4] Neela Cunningham [facility] CPT-4: 27199 04/06/2013 ([id number]) OFFICE/OUTPATIENT VISIT EST Diagnosis: 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] Diagnosis: HYPERLIPIDEMIA NEC/NOS[ICD9: 272.4] Diagnosis: HYPERTENSION[ICD9: 401.9] Neeladano Hyman NEELA JulissaMendez [facility] CPT-4: 58255 12/01/2012 ([id number]) OFFICE/OUTPATIENT VISIT EST Diagnosis: 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] Diagnosis: HYPERTENSION[ICD9: 401.9] Diagnosis: HYPERLIPIDEMIA NEC/NOS[ICD9: 272.4] Neela GREGORIO JulissaMendez [facility] CPT-4: 03007 08/04/2012 ([id number]) OFFICE/OUTPATIENT VISIT EST Diagnosis: URINARY FREQUENCY[ICD9: 788.41] Neela Zhanginna NEELA JulissaMendez YENNI [facility] CPT-4: 47750 06/01/2012 OFFICE/OUTPATIENT VISIT EST Diagnosis: Agitation[ICD9: 307.9] Diagnosis: Frequent urination[ICD9: 788.41] Janet Cunningham [facility] [employer] [facility] CPT-4: 94483 05/29/2012 OFFICE/OUTPATIENT VISIT EST Diagnosis: SINUSITIS, ACUTE[ICD9: 461.9] Diagnosis: OTALGIA[ICD9: 388.70] Neela MURILLO JulissaMendez [facility] CPT-4: 95927 05/25/2012 OFFICE/OUTPATIENT VISIT EST Diagnosis: 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, 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] Diagnosis: HYPERTENSION[ICD9: 401.9] Diagnosis: HYPERLIPIDEMIA NEC/NOS[ICD9: 272.4] Neela GREGORIO JulissaMendez YENNI [employer] [facility] CPT-4: 96106 04/07/2012 OFFICE/OUTPATIENT VISIT EST Diagnosis: FINGER INJURY[ICD9: 959.5] Janet Cunningham [facility] [employer] [facility] CPT-4: 52546 12/16/2011 ([id number]) OFFICE/OUTPATIENT VISIT EST Diagnosis: 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, 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] Diagnosis: HYPERTENSION[ICD9: 401.9] Diagnosis: HYPERLIPIDEMIA NEC/NOS[ICD9: 272.4] Neela GREGORIO Julissa. ORENDER DO [facility] CPT-4: 97608 12/03/2011 ([id number]) OFFICE/OUTPATIENT VISIT EST Diagnosis: 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] Diagnosis: HYPERLIPIDEMIA NEC/NOS[ICD9: 272.4] Diagnosis: HYPERTENSION[ICD9: 401.9] Neela MURILLO S. ORE NDER DO [facility] CPT-4: 45128 08/29/2011 OFFICE/OUTPATIENT VISIT EST Diagnosis: 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] Diagnosis: HYPERLIPIDEMIA NEC/NOS[ICD9: 272.4] Diagnosis: HYPERTENSION[ICD9: 401.9] Neela MURILLO S. ORE NDER DO [facility] CPT-4: 17717 05/30/2011 OFFICE/OUTPATIENT VISIT EST Diagnosis: SKIN SENSATION DISTURB[ICD9: 782.0] Neela Sergegemmainna HERMESYesenia GREGORIO S. ORENDER DO [facility] CPT-4: 22824 01/29/2011 OFFICE/OUTPATIENT VISIT EST Diagnosis: SKIN SENSATION DISTURB[ICD9: 782.0] Neela Sergechristina CROOK DARLINE S. ORENDER DO [facility] CPT-4: 05753 01/14/2011 OFFICE/OUTPATIENT VISIT EST Neela Yenni MURILLO S. ORE NDER DO [facility] CPT- 4: 24268 01/01/2011 OFFICE/OUTPATIENT VISIT EST Neela Sergegemmainna MURILLO S. ORE NDER DO [facility] CPT- 4: 34170 11/29/2010 ([id number]) OFFICE/OUTPATIENT VISIT EST Neela HORAN S. ORENDER DO [facility] CPT-4: 82360 08/28/2010 ([id number]) OFFICE/OUTPATIENT VISIT, EST Neela Sergechristina WILDE S. ORENDER DO [facility] CPT-4: 97176 06/05/2010 ([id number]) OFFICE/OUTPATIENT VISIT, EST Neela WILDE S. ORENDER DO [facility] CPT-4: 24009 02/05/2010 ([id number]) OFFICE/OUTPATIENT VISIT, EST Neela WILDE S. ORENDER DO [facility] CPT-4: 36001 10/09/2009 ([id number]) OFFICE/OUTPATIENT VISIT, [facility] CPT-4: 96472 08/22/2009 Plan of Care Planned Activity Notes [...] : E11.65 08/30/2019 Appointment: Neela Hyman WPtel: [address] [place] [address] [place] FOLLOW UP 08/30/2019 Visit Diagnosis Plan: [...] : J44.1 08/10/2019 Appointment: Neela Hyman WPtel: [address] [place] [address] ACUTE ILLNESS 08/10/2019 Visit Diagnosis Plan: Sore on toe Discussion: Keep farhat an/dry Keflex Notify if worsens ICD-9 : 709.9 ICD-10 : L98.9 07/06/2019 Appointment: Neela Hyman WPtel: [address] [place] [address] ACUTE ILLNESS 07/06/2019 Patient Education: Abdoulaye Blue [phone] https://www.[employer].Telormedix/samplemd/resources/getResource/61/3vv333xv-87r0-4g88-31 Completed 07/06/2019 Visit Diagnosis Plan: Advanced chronic obstructive pul monary disease Discussion: Continue oxygen and pulmonary rehab Follow Up: 3 months ICD-9 : 496 ICD-10 : J44.9 05/10/2019 Visit Diagnosis Plan: Lymphoma involving lung Discussi on: Doing weekly lab and chemo ICD-9 : 202.82 ICD-10 : C85.99 05/10/2019 Appointment: Neela Hyman WPtel: [address] [place], [place] [phone] FOLLOW UP 05/10/2019 Appointment: Neela Hyman WPtel: [address] [place] [address] [place] he called 04/14/19-- he was at [...] : E87.6 03/29/2019 Appointment: Neela Hyman WPtel: [address] [place], [place] [address] Hospital Follow Up 03/29/2019 Appointment: Neela Hyman WPtel: [address] [place], [place] [phone] [place] INJECTION 03/04/2019 Visit Diagnosis Plan: Chronic obstructiv e pulmonary disease with (acute) exacerbation Discussion: Increase SVNS with duoneb to QID Prednisone taper ICD-9 : 491.21 ICD-10 : J44.1 01/05/2019 Visit Diagnosis Plan: Other nonspecific abnormal findi ng of lung field Discussion: Referral to pulmonology--will likely need bronchoscopy--path results discussed ICD-9 : 786.6 ICD-10 : R91.8 01/05/2019 Appointment: Neela Hyman WPtel: [address] [place], [place] [address] [place] FOLLOW UP 01/05/2019 Patient Education: prednisone- [employer] Coupon [phone] https://www.Click Bus/sampleClixtr/resources/getResource/61/e1wh7820-308b-5a76-ma Completed 01/05/2019 Care Plan: Referral Order SNOMED-CT : 30 0334172 Pending 01/05/2019 Appointment: Neela Hyman WPtel: [address] [place] [address] [place] CANCELED 12/21/2018 Visit Diagnosis Plan: Tinea corporis Discussion: Diflu can--hold simvastatin and fenofibrate while taking ICD-9 : 110.5 ICD-10 : B35.4 12/09/2018 Visit Diagnosis Plan: Solitary pulmonary nodule Discus esmer: CT guided needle biopsy of RUL lung mass ICD-9 : 793.11 ICD-10 : R91.1 12/09/2018 Appointment: Neela Hyman WPtel: [address] [place] [address] [place] FOLLOW UP 12/09/2018 Appointment: Gely Harp [address] [place] [address] NO SHOW 12/01/2018 Visit Diagnosis Plan: Other [...] : J44.9 11/24/2018 Appointment: Neela Hyman WPtel: [address] [place], [place] [address] [place] FOLLOW UP 11/24/2018 Care Plan: PET IMAGE FULL BODY LOINC : 4 2711-2 Pending 11/24/2018 Appointment: Neela Hyman WPtel: [address] [place], [place] [phone] [place] Consult 09/21/2018 Visit Diagnosis Plan: Pneumonia, unspecified organism Discussion: Patient clinically improved. Recent CT scan from 09/07 showed unresolved right upper lobe pneumonia. Finished another 7 days of levaquin. Will repeat CBC early next week. Order sent with patient to get done at [facility]. FU CT recommended in 4 weeks. Patient states understanding. ICD-9 : 486 ICD-10 : J18.9 09/16/2018 Appointment: Amita Henderson [facility] [place] [address] FOLLOW UP 09/16/2018 Visit Diagnosis Plan: Pneumonia, unspecified organism Discussion: Clinically patient feels and looks much better but need CT scan of chest due to ongoing round pneumonia in association with his known lymphoma ICD-9 : 486 ICD-10 : J18.9 09/03/2018 Appointment: Neela Hyman WPtel: [address] [place], [place] [address] FOLLOW UP 09/03/2018 Care Plan: CT THORAX [...] ICD-10 : Z87.01 08/27/2018 App[facility]ment[facility] [facility] [facility] 08/27/2018 Visit Diagnosis Plan: Other [...] ICD-10 : I10 08/13/2018 Appointment: Amita Henderson [id number] FOLLOW UP 08/13/2018 Appointment: Amita Henderson [address] [place], [place] [address] CANCELED 08/13/2018 Patient Education: prednisone- [employer] Coupon [phone] https://www.Click Bus/samplemd/resources/getResource/61/fr03oo0i-7g74-2mq5-8v Completed 08/13/2018 Visit Diagnosis Plan: Other specified [...] ICD-10 : J18.9 08/11/2018 Appointment: Amita Henderson [address] [place], [place] [phone] ACUTE ILLNESS 08/11/2018 Care Plan: CHEST X-RAY 2VW FRONTAL&LATL LOINC : 72834-8 Pending 07/20/2018 Visit Diagnosis Plan: Dyspnea, unspecified Discussion: CXR- to be completed at the hospital. Will call with results and any adjustments in plan. Solumedrol 125 administered in clinic Prednisone 20 mg BID x 5 days- start tomorrow ICD-9 : 786.09 ICD-10 : R06.00 07/16/2018 Appointment: Amita Henderson [address] [place], [place] [address] ACUTE ILLNESS 07/16/2018 Patient Education: prednisone- [employer] Coupon [phone] https://www.Click Bus/samplemd/resources/getResource/61/03m0a8qe-zo36-2pj0-r4 Completed 07/16/2018 Visit Diagnosis Plan: Acute bronchitis due to other sp ecified organisms Discussion: Kenalog 40 mg IM administered in clinic. Doxycycline called into [facility]. Take as directed. Continue nebulizer and Trelegy. Follow up if symptoms are not improving with treatment regimen. Patient states understanding of all instruction. ICD-9 : 466.0 ICD-10 : J20.8 07/13/2018 Appointment: Amita Henderson [address] [place], [place] [phone] ACUTE ILLNESS 07/13/2018 Patient Education: doxycycline hyclate- OptimizeRX Cou saritha [phone] https://www.[employer].com/samplemd/resources/getResource/61/2g264x89-3p5t-5586-1p Completed 07/13/2018 Care Plan: [place] : [address]-2 Pending 07/13/2018 Care Plan: CBC Pending 07/13/2018 Care Plan: A1C HPLC LOINC : 40441-9 Pending 07/13/2018 Visit Diagnosis Plan: Mixed hyperlipidemia [...] : I10 06/03/2018 Appointment: Neela Hyman WPtel: [address] [place] [address] [place] FOLLOW UP 06/03/2018 Visit Diagnosis Plan: [...] ICD-10 : J44.9 05/04/2018 Appointment: Gely Harp [address] [place] [address] ACUTE ILLNESS 05/04/2018 Visit Diagnosis Plan: Localized edema Discussion: Cont inue lasix and potassium at every other day Recheck lab and fwup in 3mos Follow Up: 3 months ICD-9 : 782.3 ICD-10 : R60.0 03/03/2018 Appointment: Neela Hyman WPtel: [address] [place], [place] [phone] FOLLOW UP 03/03/2018 Patient Education: Patient Medication Summary Completed 03/03/2018 Visit Diagnosis Plan: Localized edema Discussion: Finch ge lasix and potassium to every other day Check Chem 7 in 2 weeks and fwup ICD-9 : 782.3 ICD-10 : R60.0 02/17/2018 Appointment: Neela Hyman WPtel: [address] [place], [place] [phone] [place] FOLLOW UP 02/17/2018 Patient Education: Patient [...] R60.0 02/10/2018 Appointment: Neela [facility]yman [facility]Ptel: [phone] [facility] FOLLOW [facility] 02/10/2018 Patient Education: Patient Medication [...] L02.212 11/05/2017 Appointment: Neela Hyman WPtel: [phone] [id number] FOLLOW UP 11/05/2017 Patient Education: Patient Medication Summary Completed 11/05/2017 Patient Education: Patient Medication Summary Completed 11/03/2017 Care Plan: COMPREH[place] : 0[address]99-2 Pending 11/03/2017 Care Plan: LIPID PANEL LOINC : 73343-0 Pending 11/03/2017 Care Plan: CBC Pending 11/03/2017 Care Plan: A1C HPLC LOINC : 53277-4 Pending 11/03/2017 Visit Diagnosis Plan: Allergic urticaria [...] ICD-10 : L50.0 09/09/2017 Appointment: Gely Harp [address] [place] [address] ACUTE ILLNESS 09/09/2017 Patient Education: Patient Medication [...] ICD-10 : R59.1 08/07/2017 Appointment: Gely Harp [address] Follow Up 08/07/2017 Patient Education: Patient Medication Summary Completed 08/07/2017 Visit Diagnosis Plan: Type 2 diabetes mellitus without complications Discussion: Accuchecks daily Lab discussed Continue current meds ICD-9 : 250.00 ICD-10 : E11.9 08/04/2017 Visit Diagnosis Plan: Essential (primary) hypertension Discussion: Increase Cardizem CD to 360mg daily ICD-9 : 401.9 ICD-10 : I10 08/04/2017 Appointment: Neela Hyman WPtel: [phone] [facility] FOLLOW UP 08/04/2017 Patient Education: Patient Medication Summary Completed 08/04/2017 Patient Education: Patient Medication Summary Completed 07/31/2017 Care Plan: [place] : 65984-3 Pending 07/31/2017 Care Plan: ASSAY THYROID STIM HORMONE Pen ding 07/31/2017 Care Plan: LIPID PANEL LOINC : 44272-8 Pending 07/31/2017 Care Plan: CBC Pending 07/31/2017 Care Plan: A1C HPLC LOINC : 45766-0 Pending 07/31/2017 Patient Education: Patient Medication Summary Completed 06/19/2017 Patient Education: Patient Medication Summary Completed 06/09/2017 Care Plan: CT SOFT TISSUE [place] : [address]-0 Pending 06/09/2017 Visit Diagnosis Plan: Acute sialoadenitis [...] ICD-10 : B02.9 06/04/2017 Appointment: Gely Harp [address] [place], [place] [address] ACUTE ILLNESS 06/04/2017 Patient Education: Patient Medication [...] ICD-10 : B02.9 06/02/2017 Appointment: Gely Harp [address] [place], [place] [address] ACUTE ILLNESS 06/02/2017 Patient Education: [...] E11.9 05/05/2017 Appointment: Neela Hyman WPtel: [phone] [facility] FOLLOW UP 05/05/2017 Patient Education: Patient Medication Summary Completed 05/05/2017 Patient Education: Patient Medication Summary Completed 05/01/2017 Care Plan: A1C HPLC [facility] : 49599-1 Pending 05/01/2017 Visit Diagnosis Plan: Chronic obstructiv [...] ICD-10 : H61.23 04/10/2017 Appointment: Gely Harp [address] [place] [address] ACUTE ILLNESS 04/10/2017 Patient Education: Patient Medication Summary Completed 04/10/2017 Appointment: Neela Hyman WPtel: [address] [place] [address] INJECTION 03/28/2017 Patient Education: Patient Medication Summary [...] : J44.9 02/03/2017 Appointment: Neela Hyman WPtel: [address] [place] [address] FOLLOW UP 02/03/2017 Patient Education: Patient Medication Summary Completed 02/03/2017 Patient Education: Patient Medication Summary Completed 01/30/2017 Care Plan: [place] : [address]-9 Pending 01/30/2017 Care Plan: LIPID PANEL LOINC : 06800-1 Pending 01/30/2017 Care Plan: CBC Pending 01/30/2017 Care Plan: A1C HPLC LOINC : 39354-6 Pending 01/30/2017 Care Plan: ASSAY OF PSA [...] : E11.65 10/30/2016 Appointment: Neela Hyman WPtel: [phone] [facility] [place] 6/6 lm ~sl 6/7 confirmed~sl FOLLOW UP 11/2016 Patient Education: Patient Medication Summary Completed 10/30/2016 Patient Education: Patient Medication Summary Completed 10/24/2016 Visit Diagnosis Plan: Acute bronchitis, unspecified Di scussion: Patient sounds and looks much improved Continue current regimen Keep appt with Dr Levi for Friday Follow up PRN ICD-9 : 466.0 ICD-10 : J20.9 08/30/2016 Appointment: [facility]ammi [facility] [facility] [place] 4/6 rang and rang rang [...] : J20.9 08/27/2016 Appointment: Sammi [facility]ajera [facility] [facility] [facility] 08/27/2016 Patient Education: Patient Medication Summary Completed 08/27/2016 Care Plan: Referral Order SNOMED-CT : 30 [id number] Pending 08/27/2016 Visit Diagnosis Plan: Type 2 [...] : I10 07/02/2016 Appointment: Neela Hyman WPtel: [address] [place], [place] [address] 07/01 rang and rang`sl FOLLOW UP 7 Patient Education: Patient Medication Summary Completed 07/02/2016 Patient Education: Patient Medication Summary Completed 06/27/2016 Care Plan: LIPID PANEL LOINC : 85443-1 Pending 06/27/2016 Care Plan: COMPREH[place]AB[place] : 75522-4 Pending 06/27/2016 Care Plan: A1C HPLC LOINC : 08235-2 Pending 06/27/2016 Visit Diagnosis Plan: Acute bronchitis, [...] : J20.9 06/14/2016 Appointment: Sammi Najera [address] [facility] [facility] 06/14/2016 Patient Education: Patient [...] ICD-10 : J20.9 06/13/2016 Appointment: Sammi Najera [address] [facility] [facility] 06/13/2016 Patient Education: Patient Medication Summary Completed 06/13/2016 Care Plan: CHEST X-RAY 2VW FRONTAL&LATL LOINC : 46179-8 Pending 06/13/2016 Visit Plan: Increase metoprolol to 100mg po BID BP readings and BP check in 1month 05/14/2016 Appointment: Neela Hyman WPtel: [address] [place] [address] 05/13 rang and rang`sl FOLLOW UP 6 Patient Education: Patient Medication Summary Completed 05/14/2016 Visit Plan: Increase metoprolol to 50mg BID BP check in 1 week f/u BP appt 2 weeks consider musculoskeletal if pain returns 04/29/2016 Appointment: Neela Hyman WPtel: [address] [place] [address] 04/25 confimred~sl FOLLOW UP 04/29/2016 Patient Education: Patient Medication Summary Completed 04/29/2016 Visit Plan: Stat CT scan of abdomen/pelv is to look for stone Hydrate and use tramadol prn Increase metoprolol to 25mg po BID Will see urology pending CT scan results 04/22/2016 Appointment: Neela Hyman WPtel: [address] [place] [address] 04/17 confirmed-sp ACUTE ILLNESS 04/22/2016 Patient Education: [...] flu shot 04/01/2016 Appointment: Neela Hyman WPtel: [address] [place] [address] FOLLOW UP 04/01/2016 Patient Education: Patient Medication Summary Completed 04/01/2016 Patient Education: [facility] - Saving AutoInj - 18-64 - Dynamic Heber l ID Completed 04/01/2016 Patient Education: Patient Medication Summary Completed 03/28/2016 Care Plan: A1C HPLC LOINC : 69462-6 Pending 03/28/2016 Care Plan: [place] : 174[address]-9 Pending 03/28/2016 Visit Plan: Lab discussed Continue curre nt meds Accuchecks daily 11/30/2015 Appointment: Neela Hyman WPtel: [address] [place] [address] 7/6 confirmed~sl FOLLOW UP 11/30/2015 Patient Education: Patient Medication Summary Completed 11/30/2015 Appointment: Neela Hyman WPtel: [address] [place] [address] [place] RESCHEDULED 11/28/2015 Patient Education: Patient Medication Summary Completed 11/23/2015 Care Plan: COMPREH[place] : 47766-8 Pending 11/23/2015 Care Plan: LIPID PANEL LOINC : 97338-9 Pending 11/23/2015 Care Plan: CBC Pending 11/23/2015 Care Plan: A1C HPLC LOINC : 77157-0 Pending 11/23/2015 Visit Plan: Lab discussed Accuchecks richard ly Continue current meds Cymbalta helping with feet and mood 08/29/2015 Appointment: Neela Hyman WPtel: [address] [place] [address] [place] FOLLOW UP 08/29/2015 Patient Education: Patient Medication Summary Completed 08/29/2015 Visit Plan: Check CXR Stop all steroids and steroid inhalers Use SVN with but change to duoneb Add singulair for allergy etiology Change fluoxetine to cymbalta 60mg daily Viagra samples given to try prn--warned of no nitrates 08/14/2015 Appointment: Neela Hyman WPtel: [address] [place] [address] lm to reschedule ~sl 07/27 lm ~sl 08/09 busy 08/10 conf irmed-sp Annual Well Visit 08/14/2015 Patient Education: Patient Medication Summary Completed 08/14/2015 Care Plan: CHEST X-RAY 2VW FRONTAL&LATL LOINC : 31107-0 Ordered 08/14/2015 Visit Plan: Decadron 8mg given [...] as expected 08/09/2015 Appointment: Sammi Najera [phone] [facility] ER Follow UP 08/09/2015 Patient Education: Patient Medication Summary Completed 08/09/2015 Patient Education: [facility] Saving AutoInj - 18-64 - Dynamic [...] with it 05/22/2015 Appointment: Neela Hyman WPtel: [address] [place], [place] [address] 05/17 confirmed~sl FOLLOW UP 05/22/2015 Patient Education: Patient Medication Summary Completed 05/22/2015 Patient Education: Patient Medication Summary Completed 05/15/2015 Visit Plan: Obtain EMGs done at [facility] from when fractured left arm Lab discussed Accuchecks daily 02/13/2015 Appointment: Neela Hyman WPtel: [address] [place], [place] [phone] 02/10 confrimed FOLLOW UP 02/13/2015 Patient Education: Patient Medication Summary Completed 02/13/2015 Patient Education: Patient Medication Summary Completed 02/09/2015 Visit Plan: discussed lab add fenofibrat e 134mg po daily recheck fasting lab in 3 months, CBC, CMP, Lipids, hgb AIC 11/07/2014 Appointment: Neela Hyman WPtel: [address] [place], [place] [phone] 11/04 appt confirmed cn FOLLOW UP 015 Patient Education: Patient Medication Summary Completed 11/07/2014 Patient Education: Patient Medication Summary Completed 11/03/2014 Visit Plan: Continue loratadine 10mg richard ly Notify if symptoms return 10/04/2014 Appointment: Neela Hyman WPtel: [address] [place], [place] [phone] confirmed on 10/03 at 2:42pm FOLLOW UP 09/23 Patient Education: Patient Medication Summary Completed 10/04/2014 Appointment: Neela Hyman WPtel: [address] [place] [address] ACUTE ILLNESS 09/28/2014 Appointment: Loren Garza WPtel: [address] [place], [place] [address] FOLLOW UP 09/22/2014 Patient Education: Patient Medication Summary Completed 09/22/2014 Appointment: Loern Garza WPtel: [address] [place], [place] [address] ACUTE ILLNESS 09/21/2014 Patient Education: Patient Medication Summary Completed 09/21/2014 Patient Education: [facility] - Saving AutoInj - 18+ - Dynamic Portal ID Completed 09/21/2014 Visit Plan: Lab discussed Continue daily accuchecks Continue current meds 06/28/2014 Appointment: Neela Hyman WPtel: [address] [place], [place] [phone] FOLLOW UP 06/28/2014 Patient Education: Patient Medication Summary Completed 06/28/2014 Patient Education: Patient Medication Summary Completed 06/23/2014 Appointment: Sarah Sunshine WPtel: [address] [place], [place] [id number] ACUTE ILLNESS 06/10/2014 Patient Education: Patient Medication Summary Completed 06/10/2014 Patient Education: [facility] - Saving AutoInj - 18+ - Dynamic Portal ID Completed 06/10/2014 Visit Plan: Lab discussed Continue daily accuchecks Continue current meds 03/29/2014 Appointment: Neela Hyman WPtel: [address] [place] [address] FOLLOW UP 03/29/2014 Patient Education: Patient Medication Summary Completed 03/29/2014 Patient Education: Patient Medication Summary Completed 03/23/2014 Visit Plan: Lab discussed Continue curre nt meds and accuchecks See surgery for removal of hand lesion 11/30/2013 Appointment: Neela Hyman WPtel: [address] [place] [address] 11/29 no answer FOLLOW UP 11/30/2013 Patient Education: Patient Medication Summary Completed 11/30/2013 Visit Plan: Lab discussed Continue curre nt meds 08/03/2013 Appointment: Neela Hyman WPtel: [address] [place] [address] FOLLOW UP 08/03/2013 Patient Education: Patient Medication Summary Completed 08/03/2013 Visit Plan: Lab Discussed Will continue current meds and pt will get back on diet/exercise Check lab in 4mos and fwup 04/06/2013 Appointment: Neela Hyman WPtel: [address] [place] [address] FOLLOW UP 04/06/2013 Patient Education: Patient Medication Summary Completed 04/06/2013 Visit Plan: Lab discussed Continue daily accuchecks 12/01/2012 Appointment: Neela Hyman WPtel: [address] [place] [address] 11/30 no answer FOLLOW UP 12/01/2012 Patient Education: Patient Medication Summary Completed 12/01/2012 Visit Plan: Continue current meds and da russell accuchecks Lab discussed 08/04/2012 Appointment: Neela Hyman WPtel: [address] [place] [address] FOLLOW UP 08/04/2012 Patient Education: Patient Medication Summary Completed 08/04/2012 Appointment: Neela Hyman WPtel: [address] [place], [place] [phone] [facility] 06/01/2012 Patient Education: Patient Medication Summary Completed 06/01/2012 Appointment: Janet Jean Baptiste WPtel: [address] [place], [place] [phone] FOLLOW UP 05/29/2012 Patient Education: Patient Medication Summary Completed 05/29/2012 Visit Plan: pt states Dr. Hyman told h is to increase his Prozac dose while she was talking to her at [facility]. Discussed that pt. should not increase or decrease dosage without Dr's knowledge. Pt. will seek hearing test here in town at the hearing aid place on [address]. Discussed that ear pain is likely caused by sinus pressure. Pt. will notify if no improvement. 05/25/2012 Appointment: Janet Jean Baptiste WPtel: [address] [place] [address] ACUTE ILLNESS 05/25/2012 Patient Education: Patient Medication Summary Completed 05/25/2012 Visit Plan: Continue current meds Contin ue daily accuchecks but alternate times Increase fish oil to 3gm daily 04/07/2012 Appointment: Neela Hyman WPtel: [address] [place] [address] 04/06 FOLLOW UP 04/07/2012 Patient Education: Patient Medication Summary Completed 04/07/2012 Appointment: Janet Jean Baptiste WPtel: [address] [place], [place] [id number] ACUTE ILLNESS 12/16/2011 Patient Education: Patient Medication Summary Completed 12/16/2011 Visit Plan: Increase 12/03/2011 Appointment: Neela Hyman WPtel: [address] [place], [place] [phone] FOLLOW UP 12/03/2011 Patient Education: Patient Medication Summary Completed 12/03/2011 Visit Plan: Continue current meds Contin ue accuchecks 08/29/2011 Appointment: Neela Hyman WPtel: [address] [place], [place] [phone] [place] FOLLOW UP 08/29/2011 Patient Education: Patient Medication Summary Completed 08/29/2011 Visit Plan: Continue current meds except restart zocor 05/30/2011 Appointment: Neela Hyman WPtel: [address] [place], [place] [phone] FOLLOW UP 05/30/2011 Patient Education: Patient Medication Summary Completed 05/30/2011 Visit Plan: Continue tennis elbow strap May go back to weight-lifing--light weigts every other day 01/29/2011 Appointment: Neela Hyman WPtel: [address] [place] [address] FOLLOW UP 01/29/2011 Patient Education: Patient Medication Summary Completed 01/29/2011 Visit Plan: Continue tennis elbow strap and anti-inflammatories 01/14/2011 Appointment: Neela Hyman WPtel: [address] [place] [address] FOLLOW UP 01/14/2011 Appointment: Janet Jean Baptiste WPtel: [address] [place] [address] NEW PATIENT 01/14/2011 Patient Education: Patient Medication Summary Completed 01/14/2011 Appointment: Neela Hyman WPtel: [address] [place], [place] [address] FOLLOW UP 01/08/2011 Appointment: Neela Hyman WPtel: [address] [place], [place] [address] FOLLOW UP 01/01/2011 Appointment: Neela Hyman WPtel: [address] [place], [place] [address] UA 01/01/2011 Patient Education: Patient Medication Summary [...] 11/29/2010 Appointment: Janet Jean Baptiste WPtel: [address] [place] [address] ACUTE ILLNESS 11/29/2010 Patient Education: Patient Medication Summary Completed 11/29/2010 Visit Plan: Cont current meds Check CMP, Lipids, HbA1C 08/28/2010 Appointment: Neela Hyman WPtel: [address] [place] [address] FOLLOW UP 08/28/2010 Patient Education: Patient Medication Summary Completed 08/28/2010 Visit Plan: Cont current meds and accuch ecks Add Zocor 40mg q HS Check Lipids and HbA1C in 3mos 06/05/2010 Appointment: Neela Hyman WPtel: [address] [place] [address] FOLLOW UP 06/05/2010 Patient Education: Patient Medication Summary Completed 06/05/2010 Visit Plan: Check Lipids and HbA1C 02/05/2010 Appointment: Neela Hyman WPtel: [address] [place] [address] FOLLOW UP 02/05/2010 Patient Education: Patient Medication Summary Completed 02/05/2010 Visit Plan: HbA1C in 3mos. Continue Accu checks BID alternating times. Check HbA1C, CMP, Lipids 10/09/2009 Appointment: Neela Hyman WPtel: [address] [place] [address] FOLLOW UP 10/09/2009 Patient Education: Patient Medication Summary Completed 10/09/2009 Visit Plan: Saline nasal flushes prn. Ty lenol/Motrin prn headache. Notify if persists/symptoms worsening. 08/22/2009 Appointment: Neela Hyman WPtel: [address] [place] [address] ACUTE ILLNESS 08/22/2009 Patient Education: Patient Medication Summary Completed 08/22/2009 Referral: Aubrey Rand MaksimMendez WPtel: [phone] [facility] [id number] [place] Office will verfy his insurance then they will contact patient Completed Referral: Shahbaz Brennan WPtel: [address] [facility] [address] [id number] [place] Referral Completed Referral: Ion Levi [address] [id number] [place] Referral Appointment Requested Referral: Ion Levi [address] [id number] [place] Referral Appointment Requested Instructions Comment . [...] with it . Obtain EMGs done at [facility] from when fractured left arm Lab discussed [...] while she was talking to her at [facility]. Discussed that pt. should not increase or decrease dosage without Dr's knowledge. Pt. will seek hearing test here in town at the hearing aid place on [address]. Discussed that ear pain is likely caused [...]
--- OUTSIDE RECORDS SUMMARY | 2019-12-09 08:58 | XMS REPORT | CCD ---
Author Author Michael Hyman D.O. Organization [facility] Address [address] [place] [address] Phone Care Team Providers Care Graphic Specialist Name Role Phone Neela Hyman D.O., PP Unavailable CCM Unavailable Summary Purpose Interface Exchange Insurance Providers Payer name Policy type / Coverage type Covered republican ID Effective Begin Date Effective End Date ABS FOR [email or web address] Commercial Insurance [id number] Unknown Family History Family History data not found Social History Social History Element Codes Description Effective Dates Marital status Unknown 05/30/[address]: 3783407 Former smoker quit 25 years ago 01/01/2011 [...] Start Date Stop Date Status Fill Instructions fenofibrate micronized 134 mg capsule RxNorm: 440425 1 Capsule( s) Oral QD 09/22/2019 03/20/2020 Active metformin 500 mg tablet RxNorm: 397812 2 Tablet(s) Oral two afshan es a day 09/22/2019 12/20/2019 Active Benicar 40 mg tablet RxNorm: 028838 1 Tablet(s) Oral QD 09/22/2019 Active Singulair 10 mg tablet RxNorm: 706821 TAKE ONE TABLET BY MOUTH EVERY EVENING 09/22/2019 03/20/2020 Active Reselected prescribe r from [facility] to [facility] Lasix 40 mg tablet RxNorm: 754605 1 Tablet(s) Oral QD 08/24/201910/25 Active duloxetine 60 mg capsule,delayed release RxNorm: 484004 TAKE ONE CAPSULE BY MOUTH EVERY DAY 08/16/2019 02/11/2020 Active metoprolol succinate ER 100 mg tablet,extended release 24 hr RxNorm: 576037 TAKE ONE TABLET BY MOUTH TWICE A DAY 08/16/2019 05/11/2020 Active potassium chloride ER 20 mEq tablet,extended release RxNorm: 376110 1 Tablet(s) Oral two times a day 07/22/2019 10/19/2019 Active metformin 500 mg tablet RxNorm: 233746 2 Tablet(s) Oral two afshan es a day 07/13/2019 09/21/2019 Inactive Keflex 500 mg capsule RxNorm: 662799 1 Capsule(s) Oral three ti mes a day 07/06/2019 07/13/2019 Inactive Singulair 10 mg tablet RxNorm: 749128 TAKE ONE TABLET BY MOUTH EVERY EVENING 07/06/2019 09/21/2019 Inactive Reselected prescribe r from [facility] to [facility] Singulair 10 mg tablet RxNorm: 612628 TAKE ONE TABLET BY MOUTH EVERY EVENING 06/22/2019 07/05/2019 Inactive Reselected prescribe r from [facility] to [facility] Zocor 40 mg tablet RxNorm: 322295 TAKE ONE TABLET BY M OUTH EVERY NIGHT AT BEDTIME 06/21/2019 11/17/2019 Active MagOx 400 mg (241.3 mg magnesium) tablet RxNorm: 804468 1 Table t(s) Oral QD 06/21/2019 08/20/2019 Inactive diltiazem ER 360 mg capsule,24 hr,extended release RxNorm: 8 20597 TAKE ONE CAPSULE BY MOUTH AT BEDTIME -REPLACES 300MG 05/17/2019 11/12/2019 Active MagOx 400 mg (241.3 mg magnesium) tablet RxNorm: 310793 1 Table t(s) Oral QD 04/26/2019 06/20/2019 Inactive Lasix 40 mg tablet RxNorm: 068782 40 MG PO DAILY 04/12/2019 08/23/2019 Inactive Benicar 40 mg tablet RxNorm: 742975 1 Tablet(s) Oral QD 03/29/2019 Inactive potassium chloride ER 20 mEq tablet,extended release RxNorm: 934183 1 Tablet(s) Oral two times a day 03/29/2019 06/27/2019 Inactive potassium chloride ER 20 mEq tablet,extended release RxNorm: 014623 1 Tablet(s) Oral QD 03/29/2019 03/28/2019 Inactive Benicar 40 mg tablet RxNorm: 313270 1 Tablet(s) Oral QD 03/29/2019 Inactive MagOx 400 mg (241.3 mg magnesium) tablet RxNorm: 760284 1 Table t(s) Oral QD 03/29/2019 04/25/2019 Inactive metformin 500 mg tablet RxNorm: 819944 2 Tablet(s) Oral two afshan es a day 03/29/2019 07/12/2019 Inactive fenofibrate micronized 134 mg capsule RxNorm: 263448 TA KE ONE CAPSULE BY MOUTH EVERY DAY 03/05/2019 09/21/2019 Inactive duloxetine 60 mg capsule,delayed release RxNorm: 883574 1 Capsu le(s) PO QD 01/28/2019 07/26/2019 Inactive Trelegy Ellipta 100 mcg-62.5 mcg-25 mcg powder for inhalatio n RxNorm: 4967186 1 Puff(s) INH QD 01/06/2019 12/31/2019 Active 90 day supply prednisone 20 mg tablet RxNorm: 418131 1 Tablet(s) PO T ID for 3 days then 1 po BID for 3 days then 1 po daily for 3 days 01/05/2019 03/28/2019 Inacti ve metformin ER 1,000 mg tablet,extended release 24hr RxNorm: 1 879092 TAKE TWO TABLETS (1000MG) BY MOUTH TWO TIMES A DAY 12/22/2018 07/13/2019 Inacti ve Diflucan 100 mg tablet RxNorm: 542944 1 Tablet(s) PO QD 12/09/2018 Inactive prednisone 20 mg tablet RxNorm: 710127 1 Tablet(s) PO B ID for 4 days then 1 po daily for 4 days 11/24/2018 01/04/2019 Inactive albuterol sulfate 2.5 mg/3 mL (0.083 %) solution for n ebulization RxNorm: 306395 3 Milliliter(s) INH ONE VIAL VIA NEBULIZER EVERY 4 HOURS 019 07/21/2019 Inactive [AttnRPh: Saving apply/adjudicate RxGRP: SG20 RxBIN:[id number] RxPCN: ID#:[id number]] Trelegy Ellipta 100 mcg-62.5 mcg-25 mcg powder for inhalatio n RxNorm: 7603679 1 Puff(s) INH QD 10/27/2018 01/06/2019 Inactive 90 day supply diltiazem ER 360 mg capsule,24 hr,extended release RxNorm: 8 75780 TAKE ONE CAPSULE BY MOUTH AT BEDTIME -REPLACES 300MG 10/13/2018 04/10/2019 Inactive metoprolol succinate ER 100 mg tablet,extended release 24 hr RxNorm: 673406 TAKE ONE TABLET BY MOUTH TWICE A DAY 10/13/2018 07/09/2019 Inactive Trelegy Ellipta 100 mcg-62.5 mcg-25 mcg powder for inhalatio n RxNorm: 4788108 INHALE ONE PUFF ONCE DAILY 09/07/2018 10/27/2018 Inactive Levaquin 750 mg tablet RxNorm: 932742 1 Tablet(s) PO QD 09/07/2018 Inactive Levaquin 750 mg tablet RxNorm: 189290 1 Tablet(s) PO QD 09/07/2018 Inactive prednisone 20 mg tablet RxNorm: 920724 2 Tablet(s) PO QAM 08/13/2018 08/19/2018 Inactive Levaquin 500 mg tablet RxNorm: 135661 1 Tablet(s) PO QD 08/11/2018 Inactive fenofibrate micronized 134 mg capsule RxNorm: 778143 TA KE ONE CAPSULE BY MOUTH EVERY DAY 08/10/2018 02/05/2019 Inactive prednisone 20 mg tablet RxNorm: 542989 1 Tablet(s) PO BID 07/16/2018 07/20/2018 Inactive doxycycline hyclate 100 mg capsule RxNorm: 3517349 1 Capsule(s) PO BID 07/13/2018 07/22/2018 Inactive duloxetine 60 mg capsule,delayed release RxNorm: 554122 TAKE ONE CAPSULE BY MOUTH ONCE A DAY 07/08/2018 01/28/2019 Inactive Lasix 40 mg tablet RxNorm: 894003 1 TABLET(S) PO QAM 06/08/201809/05 Inactive potassium chloride ER 20 mEq tablet,extended release(p art/cryst) RxNorm: 4766396 1 TABLET(S) PO QD 06/08/2018 09/05/2018 Inactive metformin ER 1,000 mg tablet,extended release 24hr RxNorm: 1 036962 TAKE TWO TABLETS (1000MG) BY MOUTH TWO TIMES A DAY 06/01/2018 11/27/2018 Inacti ve Benicar HCT 40 mg-25 mg tablet RxNorm: 264796 TAKE ONE TABLET BY MOUTH ONCE DAILY 05/11/2018 03/28/2019 Inactive Zocor 40 mg tablet RxNorm: 474894 TAKE ONE TABLET BY M OUTH EVERY NIGHT AT BEDTIME 05/11/2018 06/20/2019 Inactive Trelegy Ellipta 100 mcg-62.5 mcg-25 mcg powder for inhalatio n RxNorm: 9895478 1 PUFF(S) INH QD 04/06/2018 07/04/2018 Inactive diltiazem ER 360 mg capsule,24 hr,extended release RxNorm: 8 53539 1 Capsule(s) PO QHS replaces 300mg dose 03/30/2018 09/25/2018 Inactive Trelegy Ellipta 100 mcg-62.5 mcg-25 mcg powder for inhalatio n RxNorm: 5419717 1 Puff(s) INH QD 02/24/2018 02/23/2018 Inactive Trelegy Ellipta 100 mcg-62.5 mcg-25 mcg powder for inhalatio n RxNorm: 3909815 1 Puff(s) INH QD 02/24/2018 02/23/2018 Inactive Trelegy Ellipta 100 mcg-62.5 mcg-25 mcg powder for inhalatio n RxNorm: 1028842 1 Puff(s) INH QD 02/24/2018 04/05/2018 Inactive Lasix 40 mg tablet RxNorm: 507705 1 Tablet(s) PO QAM 02/10/201803/11 Inactive potassium chloride ER 20 mEq tablet,extended release(p art/cryst) RxNorm: 9502992 1 Tablet(s) PO QD 02/10/2018 03/11/2018 Inactive fenofibrate micronized 134 mg capsule RxNorm: 518928 1 Capsule( s) PO QD 01/30/2018 07/28/2018 Inactive metoprolol succinate ER 100 mg tablet,extended release 24 hr RxNorm: 113753 TAKE ONE TABLET BY MOUTH TWICE A DAY 12/30/2017 09/25/2018 Inactive metformin ER 1,000 mg tablet,extended release 24hr RxNorm: 1 558601 1 Tablet(s) PO BID 11/17/2017 05/15/2018 Inactive [SAVINGS FOR NON -COVERED DRUGS -- BIN:407720, PCN: ASPROD1, Group: XXXXX, ID# [id number], Questions: . THIS IS NOT INSURANCE.] Benicar HCT 40 mg-25 mg tablet RxNorm: 051351 1 Tablet(s) PO QD 05/10/2018 Inactive [SAVINGS FOR NON-COVERED JESU GS -- BIN:418444, PCN: ASPROD1, Group: XXXXX, ID# [id number], Questions: . THIS IS NOT INSURANCE.] Bactroban 2 % topical cream RxNorm: 311718 Application TOP BID 10/2409/02/2018 Inactive clindamycin HCl 300 mg capsule RxNorm: 080032 2 Capsule(s) PO TID 0 11/05/2017 11/18/2017 Inactive duloxetine 60 mg capsule,delayed release RxNorm: 260032 Capsule(s) TAKE ONE CAPSULE BY MOUTH ONCE DAILY 09/24/2017 09/23/2017 Inactive triamcinolone acetonide 0.1 % topical ointment RxNorm: 5789973 1 TOP BID 09/09/2017 11/04/2017 Inactive Bactrim DS 800 mg-160 mg tablet RxNorm: 534846 1 Tablet(s) PO BID 0 08/07/2017 08/13/2017 Inactive metronidazole 500 mg tablet RxNorm: 603234 1 Tablet(s) PO BID 08/0708/13/2017 Inactive diltiazem ER 360 mg capsule,24 hr,extended release RxNorm: 8 89594 1 Capsule(s) PO QHS replaces 300mg dose 08/04/2017 01/30/2018 Inactive fenofibrate micronized 134 mg capsule RxNorm: 222710 1 Capsule( s) PO QD 07/21/2017 01/30/2018 Inactive Zocor 40 mg tablet RxNorm: 419234 1 Tablet(s) PO QHS 07/21/201705/10 Inactive GB duloxetine 60 mg capsule,delayed release RxNorm: 347215 Capsule(s) TAKE ONE CAPSULE BY MOUTH ONCE DAILY 06/24/2017 09/24/2017 Inactive Cleocin HCl 300 mg capsule RxNorm: 269948 2 Capsule(s) PO BID 06/0206/08/2017 Inactive acyclovir 800 mg tablet RxNorm: 844627 1 Tablet(s) PO 5x day 201706/08/2017 Inactive diltiazem ER 300 mg capsule,24 hr,extended release RxNorm: 8 10170 1 Capsule(s) PO QHS replaces 240mg dose 05/05/2017 08/03/2017 Inactive ipratropium-albuterol 0.5 mg-3 mg(2.5 mg base)/3 mL ne bulization soln RxNorm: 5412961 1 Unit Dose INH Q4H as needed 05/05/2017 01/04/2019 Inactive metformin ER 1,000 mg tablet,extended release 24hr RxNorm: 1 585344 1 Tablet(s) PO BID 04/28/2017 11/17/2017 Inactive [SAVINGS FOR NON -COVERED DRUGS -- BIN:167127, PCN: ASPROD1, Group: XXXXX, ID# [id number], Questions: . THIS IS NOT INSURANCE.] diltiazem ER (XR/XT) 240 mg capsule,extended release 2 4 hr, controlled RxNorm: 110287 TAKE ONE CAPSULE BY MOUTH EVERY DAY 04/15/2017 05/04/2017 Inact avani prednisone 20 mg tablet RxNorm: 200628 1 Tablet(s) PO QD 04/10/2017 1 06/14/2016 Inactive Breo Ellipta 200 mcg-25 mcg/dose powder for inhalation RxNor m: 7397010 1 Puff(s) INH QD 04/10/2017 02/09/2018 Inactive Breo Ellipta 200 mcg-25 mcg/dose powder for inhalation RxNor m: 2920952 1 Puff(s) INH QD 04/10/2017 04/09/2017 Inactive Levaquin 500 mg tablet RxNorm: 897742 1 Tablet(s) PO QD 04/10/2017 Inactive metoprolol succinate ER 100 mg tablet,extended release 24 hr RxNorm: 198551 TAKE ONE TABLET BY MOUTH TWICE A DAY 03/24/2017 12/18/2017 Inactive fenofibrate micronized 134 mg capsule RxNorm: 334920 1 Capsule( s) PO QD 01/16/2017 07/21/2017 Inactive Benicar HCT 40 mg-25 mg tablet RxNorm: 554158 1 Tablet(s) PO QD 11/17/2017 Inactive [SAVINGS FOR NON-COVERED JESU GS -- BIN:198977, PCN: ASPROD1, Group: XXXXX, ID# [id number], Questions: . THIS IS NOT INSURANCE.] metoprolol succinate ER 100 mg tablet,extended release 24 hr RxNorm: 273202 1 Tablet(s) PO BID 10/16/2016 03/23/2017 Inactive diltiazem ER (XR/XT) 240 mg capsule,extended release 2 4 hr, controlled RxNorm: 760500 1 Capsule(s) PO QD 10/16/2016 04/13/2017 Inactive [SAVINGS FOR NON- COVERED DRUGS -- BIN:904222, PCN: ASPROD1, Group: XXXXX, ID# [id number], Questions: . THIS IS NOT INSURANCE.] metformin ER 1,000 mg tablet,extended release 24hr RxNorm: 8 74652 1 Tablet(s) PO BID 10/16/2016 04/28/2017 Inactive [SAVINGS FOR NON -COVERED DRUGS -- BIN:677418, PCN: ASPROD1, Group: XXXXX, ID# [id number], Questions: . THIS IS NOT INSURANCE.] Zocor 40 mg tablet RxNorm: 241070 1 Tablet(s) PO QHS 10/16/201607/21 Inactive GB Singulair 10 mg tablet RxNorm: 459388 Tablet(s) 1 TABLET(S) PO QHS 08/27/2016 09/02/2018 Inactive prednisone 20 mg tablet RxNorm: 494106 1 Tablet(s) PO QD 08/27/2016 0 08/31/2016 Inactive ipratropium-albuterol 0.5 mg-3 mg(2.5 mg base)/3 mL ne bulization soln RxNorm: 7632928 1 Unit Dose INH Q4H as needed 08/27/2016 05/04/2017 Inactive metoprolol succinate ER 100 mg tablet,extended release 24 hr RxNorm: 262691 TAKE ONE TABLET BY MOUTH TWICE A DAY 08/05/2016 10/16/2016 Inactive duloxetine 60 mg capsule,delayed release RxNorm: 207978 TAKE ONE CAPSULE BY MOUTH ONCE DAILY 08/05/2016 06/24/2017 Inactive prednisone 20 mg tablet RxNorm: 299786 1 Tablet(s) PO QD 06/14/2016 0 06/18/2016 Inactive ipratropium-albuterol 0.5 mg-3 mg(2.5 mg base)/3 mL ne bulization soln RxNorm: 2126324 1 Unit Dose INH Q4H as needed 06/13/2016 08/26/2016 Inactive Levaquin 500 mg tablet RxNorm: 950261 1 Tablet(s) PO QD 06/13/2016 Inactive metoprolol succinate ER 100 mg tablet,extended release 24 hr RxNorm: 358992 1 Tablet(s) PO BID replaces 50mg dose 05/14/2016 07/12/2016 Inactive metoprolol succinate ER 50 mg tablet,extended release 24 hr RxNorm: 988596 1 Tablet(s) PO BID 04/29/2016 05/13/2016 Inactive prednisone 20 mg tablet RxNorm: 831276 1 Tablet(s) PO BID 04/22/2016 04/21/2016 Inactive prednisone 20 mg tablet RxNorm: 251846 1 Tablet(s) PO BID 04/22/2016 04/28/2016 Inactive Singulair 10 mg tablet RxNorm: 024817 Tablet(s) 1 TABLET(S) PO QHS 04/01/2016 08/26/2016 Inactive metoprolol succinate ER 25 mg tablet,extended release 24 hr RxNorm: 217519 1 Tablet(s) PO QHS for blood pressure 04/01/2016 05/13/2016 Inactive fenofibrate micronized 134 mg capsule RxNorm: 323624 TA KE ONE CAPSULE BY MOUTH DAILY 01/25/2016 01/16/2017 Inactive duloxetine 60 mg capsule,delayed release RxNorm: 827906 TAKE ONE CAPSULE BY MOUTH ONCE DAILY 01/25/2016 08/04/2016 Inactive Zocor 40 mg tablet RxNorm: 326877 TAKE ONE TABLET BY MOUTH AT B EDTIME 11/13/2015 10/16/2016 Inactive GB metformin ER 1,000 mg tablet,extended release 24hr RxNorm: 8 59425 1 Tablet(s) PO BID 10/26/2015 10/16/2016 Inactive [SAVINGS FOR NON -COVERED DRUGS -- BIN:615134, PCN: ASPROD1, Group: XXXXX, ID# [id number], Questions: . THIS IS NOT INSURANCE.] Benicar HCT 40 mg-25 mg tablet RxNorm: 570328 1 Tablet(s) PO QD 06/201511/11/2016 Inactive [SAVINGS FOR NON-COVERED JESU GS -- BIN:972025, PCN: ASPROD1, Group: XXXXX, ID# [id number], Questions: . THIS IS NOT INSURANCE.] diltiazem ER (XR/XT) 240 mg capsule,extended release,control led RxNorm: 806879 1 Capsule(s) PO QD 10/26/2015 10/15/2016 Inactive [SAVINGS FOR NO N-COVERED DRUGS -- BIN:145986, PCN: ASPROD1, Group: XXXXX, ID# [id number], Questions: . THIS IS NOT INSURANCE.] Singulair 10 mg tablet RxNorm: 662289 1 TABLET(S) PO QHS 09/18/2015 1 05/31/2015 Inactive Viagra 100 mg tablet RxNorm: 510071 1 Tablet(s) PO as needed 201511/23/2018 Inactive Singulair 10 mg tablet RxNorm: 538871 1 Tablet(s) PO QHS 08/16/2015 0 08/15/2015 Inactive Singulair 10 mg tablet RxNorm: 237473 1 Tablet(s) PO QHS 08/16/2015 0 09/14/2015 Inactive duloxetine 60 mg capsule,delayed release RxNorm: 822115 1 Capsule(s) PO QD replaces fluoxetine 08/14/2015 01/24/2016 Inactive ipratropium-albuterol 0.5 mg-3 mg(2.5 mg base)/3 mL ne bulization soln RxNorm: 0607420 1 Unit Dose INH Q4H as needed 08/14/2015 06/12/2016 Inactive prednisone 20 mg tablet RxNorm: 147869 Take 3 tabs PO o nce daily x 3 days, then 2 tabs PO once daily x 3 days and then 1 tab PO once daily x 3 days 08/09/2015 08/13/2015 Inactive Symbicort 160 mcg-4.5 mcg/actuation HFA aerosol inhaler RxNo rm: 7400302 2 Puff(s) INH BID 08/09/2015 08/13/2015 Inactive Zocor 40 mg tablet RxNorm: 815109 1 Tablet(s) PO QHS 05/23/201511/11 Inactive [AttnRPh: Saving apply/adjudicate RxGRP: SG20 RxBIN:[id number] RxPCN: ID#:[id number]] Benicar HCT 40 mg-25 mg tablet RxNorm: 537620 1 Tablet(s) PO QD 10/26/2015 Inactive [SAVINGS FOR NON-COVERED JESU GS -- BIN:525809, PCN: ASPROD1, Group: XXXXX, ID# [id number], Questions: . THIS IS NOT INSURANCE.] diltiazem ER (XR/XT) 240 mg capsule,extended release,control led RxNorm: 777538 1 Capsule(s) PO QD 04/24/2015 10/20/2015 Inactive [SAVINGS FOR NO N-COVERED DRUGS -- BIN:997343, PCN: ASPROD1, Group: XXXXX, ID# XXXXXXX, Questions: . THIS IS NOT INSURANCE.] fluoxetine 40 mg capsule RxNorm: 347394 1 Capsule(s) PO QD 04/24/20 15 08/13/2015 Inactive [SAVINGS FOR NON-COVERED JESU GS -- BIN:886672, PCN: ASPROD1, Group: XXXXX, ID# XXXXXXX, Questions: . THIS IS NOT INSURANCE.] Zocor 40 mg tablet RxNorm: 299891 TABLET(S) 1 TABLET(S) PO QHS 01/2505/23/2015 Inactive [AttnRPh: Saving apply/adjud icate RxGRP:SG20 RxBIN:[id number] RxPCN:HT ID#:[id number]] metformin ER 1,000 mg tablet,extended release 24hr RxNorm: 8 42059 1 TABLET(S) PO BID 01/29/2015 10/26/2015 Inactive [SAVINGS FOR NON -COVERED DRUGS -- BIN:025246, PCN: ASPROD1, Group: XXXXX, ID# XXXXXXX, Questions: . THIS IS NOT INSURANCE.] fenofibrate micronized 134 mg capsule RxNorm: 773588 1 CAPSULE( S) PO QD 01/23/2015 01/17/2016 Inactive fenofibrate micronized 134 mg capsule RxNorm: 132367 1 Capsule( s) PO QD 11/07/2014 01/22/2015 Inactive diltiazem ER (XR/XT) 240 mg capsule,extended release,control led RxNorm: 316540 1 Capsule(s) PO QD 10/24/2014 04/24/2015 Inactive [SAVINGS FOR NO N-COVERED DRUGS -- BIN:820168, PCN: ASPROD1, Group: XXXXX, ID# XXXXXXX, Questions: . THIS IS NOT INSURANCE.] Benicar HCT 40 mg-25 mg tablet RxNorm: 708430 1 Tablet(s) PO QD 05/201404/24/2015 Inactive [SAVINGS FOR NON-COVERED JESU GS -- BIN:222259, PCN: ASPROD1, Group: XXXXX, ID# [id number], Questions: . THIS IS NOT INSURANCE.] fluoxetine 40 mg capsule RxNorm: 105327 1 Capsule(s) PO QD 10/25/1904/24/2015 Inactive [SAVINGS FOR NON-COVERED JESU GS -- BIN:120804, PCN: ASPROD1, Group: XXXXX, ID# [id number], Questions: . THIS IS NOT INSURANCE.] azithromycin 500 mg tablet RxNorm: 811653 1 Tablet(s) PO QD 015 09/27/2014 Inactive [SAVINGS FOR NON-COVERED JESU GS -- BIN:312779, PCN: ASPROD1, Group: XXXXX, ID# XXXXXXX, Questions: . THIS IS NOT INSURANCE.] albuterol sulfate 2.5 mg/3 mL (0.083 %) solution for n ebulization RxNorm: 873625 3 Milliliter(s) INH ONE VIAL VIA NEBULIZER EVERY 4 HOURS 015 11/19/2014 Inactive [AttnRPh: Saving apply/adjudicate RxGRP: SG20 RxBIN:[id number] RxPCN: ID#:[id number]] Zocor 40 mg tablet RxNorm: 805806 TABLET(S) 1 TABLET(S ) PO QHS 1 TABLET(S) PO QHS 09/04/2014 02/21/2015 Inactive [AttnRPh: Saving apply/adjudicate RxGRP:SG20 RxBIN:[id number] RxPCN: ID#:[id number]] metformin ER 1,000 mg tablet,extended release 24hr RxNorm: 8 77501 1 Tablet(s) PO BID 08/04/2014 01/28/2015 Inactive [SAVINGS FOR NON -COVERED DRUGS -- BIN:081300, PCN: ASPROD1, Group: XXXXX, ID# XXXXXXX, Questions: . THIS IS NOT INSURANCE.] Bromfed DM 2 mg-30 mg-10 mg/5 mL syrup RxNorm: 6031355 1 -2 Teaspoon(s) PO Q4H as needed for cough 06/10/2014 06/19/2014 Inactive [SAVINGS FOR UN INSURED PATIENTS -- BIN:894193, PCN: ASPROD1, Group: AME08, ID# [id number], Process claim through [id number], for questions: . THIS IS NOT INSURANCE.] Augmentin 875 mg-125 mg tablet RxNorm: 388987 1 Tablet(s) PO Q12H 0 06/10/2014 06/19/2014 Inactive [AttnRPh: Saving apply/adjud icate RxGRP:SG20 RxBIN:[id number] RxPCN:HT ID#:[id number]] Zocor 40 mg tablet RxNorm: 701869 Tablet(s) 1 TABLET(S ) PO QHS 1 TABLET(S) PO QHS 05/25/2014 08/22/2014 Inactive [AttnRPh: Saving apply/adjudicate RxGRP:SG20 RxBIN:[id number] RxPCN:HT ID#:[id number]] fluoxetine 40 mg capsule RxNorm: 468011 1 Capsule(s) PO QD 04/29/20 14 10/24/2014 Inactive [AttnRPh: Saving apply/adjud icate RxGRP:SG20 RxBIN:[id number] RxPCN:HT ID#:[id number]] diltiazem ER (XR/XT) 240 mg capsule,extended release,control led RxNorm: 357292 1 Capsule(s) PO QD 04/29/2014 10/24/2014 Inactive [AttnRPh: Savin g apply/adjudicate RxGRP:SG20 RxBIN:[id number] RxPCN:HT ID#:[id number]] Benicar HCT 40 mg-25 mg tablet RxNorm: 007209 1 Tablet(s) PO QD 09/201310/24/2014 Inactive [AttnRPh: Saving apply/adjud icate RxGRP:SG20 RxBIN:[id number] RxPCN:HT ID#:[id number]] Zocor 40 mg tablet RxNorm: 369059 1 TABLET(S) PO QHS 1 TABLET(S ) PO QHS 03/07/2014 05/25/2014 Inactive [AttnRPh: Saving chelsie ly/adjudicate RxGRP:SG20 RxBIN:[id number] RxPCN:HT ID#:[id number]] Zocor 40 mg tablet RxNorm: 416414 1 Tablet(s) PO QHS 1 TABLET(S ) PO QHS 12/06/2013 03/05/2014 Inactive [AttnRPh: Saving chelsie ly/adjudicate RxGRP:SG20 RxBIN:[id number] RxPCN:HT ID#:[id number]] diltiazem ER (XR/XT) 240 mg capsule,extended release,control led RxNorm: 016692 1 Capsule(s) PO QD 10/25/2013 04/22/2014 Inactive [AttnRPh: Shahzad g apply/adjudicate RxGRP:SG20 RxBIN:[id number] RxPCN:HT ID#:[id number]] fluoxetine 40 mg capsule RxNorm: 861798 1 Capsule(s) PO QD 10/26/19 14 04/22/2014 Inactive [AttnRPh: Saving apply/adjud icate RxGRP:SG20 RxBIN:[id number] RxPCN:HT ID#:[id number]] Zocor 40 mg tablet RxNorm: 100800 1 Tablet(s) PO QHS 1 TABLET(S ) PO QHS 09/13/2013 12/06/2013 Inactive metformin ER 1,000 mg tablet,extended release 24hr RxNorm: 8 53684 Tablet(s) PO TAKE 1 TABLET BY MOUTH TWICE DAILY (REPLACES 500MG DOSE) 07/26/201303/2015 Inactive diltiazem ER (XR/XT) 240 mg capsule,extended release,control led RxNorm: 904480 1 Capsule(s) PO QD 05/03/2013 10/25/2013 Inactive fluoxetine 40 mg capsule RxNorm: 697004 1 Capsule(s) PO QD 05/03/20 13 10/25/2013 Inactive Benicar HCT 40 mg-25 mg tablet RxNorm: 402049 1 Tablet(s) PO QD 01/201304/29/2014 Inactive Zocor 40 mg tablet RxNorm: 511792 1 Tablet(s) PO QHS 12/10/201209/13 Inactive fluoxetine 40 mg capsule RxNorm: 533225 1 Capsule(s) PO QD 11/10/19 13 05/03/2013 Inactive diltiazem ER (XR/XT) 240 mg capsule,extended release,control led RxNorm: 626576 1 Capsule(s) PO QD 11/09/2012 05/03/2013 Inactive Benicar HCT 40 mg-25 mg tablet RxNorm: 097133 1 Tablet(s) PO QD 05/03/2013 Inactive metformin ER 1,000 mg tablet,extended release 24hr RxNorm: 8 41247 Tablet(s) PO TAKE 1 TABLET BY MOUTH TWICE DAILY (REPLACES 500MG DOSE) 08/05/201206/2013 Inactive Zocor 40 mg tablet RxNorm: 416763 1 Tablet(s) PO QHS 06/15/201212/09 Inactive fluoxetine 40 mg capsule RxNorm: 865769 1 Capsule(s) PO QD 05/15/20 12 11/08/2012 Inactive Neurontin 600 mg Tab RxNorm: 068610 1 Tablet(s) PO QHS 12/03/2011 Inactive metformin ER 1,000 mg tablet,extended release 24hr RxNorm: 8 24301 1 Tablet(s) PO BID replaces 500mg dose 12/03/2011 07/26/2013 Inactive Zocor 40 mg tablet RxNorm: 351037 1 Tablet(s) PO QHS 12/03/201106/15 Inactive fluoxetine 20 mg capsule RxNorm: 392763 1 Capsule(s) PO QD 12/03/19 12 05/24/2012 Inactive diltiazem ER (XR/XT) 240 mg capsule,extended release,control led RxNorm: 665432 1 Capsule(s) PO QD 11/15/2011 11/09/2012 Inactive Benicar HCT 40 mg-25 mg tablet RxNorm: 817991 1 Tablet(s) PO QD 02/16/2012 Inactive metformin ER 500 mg 24 hr Tab RxNorm: 597078 1 Tablet(s) PO BID 12/02/2011 Inactive Zocor 40 mg Tab RxNorm: 103498 1 Tablet(s) PO QHS 05/30/2011 11/25/19 12 Inactive fluoxetine 20 mg Cap RxNorm: 910185 1 Capsule(s) PO QD 05/28/2011 Inactive Neurontin 600 mg Tab RxNorm: 563077 1 Tablet(s) PO QHS 05/28/2011 Inactive Neurontin 600 mg Tab RxNorm: 591707 1 Tablet(s) PO QHS 02/22/201106/2011 Inactive Neurontin 600 mg Tab RxNorm: 836575 1 Tablet(s) PO QHS 01/14/2011 Inactive Neurontin 300 mg Cap RxNorm: 327967 1 Capsule(s) PO QHS 01/14/2011 Inactive Neurontin 600 mg Tab RxNorm: 071211 1 Tablet(s) PO QHS 01/14/2011 Inactive Medrol (Vipul) 4 mg Tabs in a Dose Pack RxNorm: 519458 Tablet(s) PO 0 01/02/2011 08/28/2011 Inactive as directed fluoxetine 20 mg Cap RxNorm: 675738 1 Capsule(s) PO QD 12/10/201006/2011 Inactive Zocor 40 mg Tab RxNorm: 385618 1 Tablet(s) PO QHS 12/03/2010 05/29/19 12 Inactive Neurontin 300 mg Cap RxNorm: 155792 1 Capsule(s) PO QHS 12/03/2010 Inactive Septra DS 800 mg-160 mg Tab RxNorm: 474090 1 Tablet(s) PO BID 11/2912/08/2010 Inactive diltiazem ER (XR/XT) 240 mg Continuous Release Cap RxNorm: 8 42790 1 Capsule(s) PO QD 11/20/2010 11/15/2011 Inactive Neurontin 300 mg Cap RxNorm: 000277 1 Capsule(s) PO QHS 11/06/2010 Inactive Neurontin 300 mg Cap RxNorm: 693216 1 Capsule(s) PO QHS 11/06/2010 Inactive Celebrex 200 mg Cap RxNorm: 210432 1 Capsule(s) PO BID 10/24/2010 Inactive fluoxetine 20 mg Cap RxNorm: 685712 1 Capsule(s) PO QD 06/07/201003/2011 Inactive Zocor 40 mg Tab RxNorm: 508561 1 Tablet(s) PO QHS 06/05/2010 12/02/19 11 Inactive Benicar HCT 40 mg-25 mg Tab RxNorm: 522297 1 Tablet(s) PO QD 200908/21/2011 Inactive Diltiazem 240 mg Continuous Release Cap RxNorm: 546171 1 Capsul e(s) PO QD 11/09/2009 09/02/2018 Inactive Avelox 400 mg Tab RxNorm: 171645 1 Tablet(s) PO QD 08/22/2009 010 Inactive ProAir HFA 90 mcg/actuation aerosol inhaler RxNorm: 900292 2 Puff(s) INH Q4H as needed No Start Date Active tramadol 50 mg tablet RxNorm: 903787 1-2 Tablet(s) PO TID as ne eded for pain No Start Date Active Tylenol Arthritis 650 mg Tab RxNorm: 9399319 2 Tablet(s) PO QD No Sta rt Date Active Celebrex 200 mg Cap RxNorm: 091079 1 Capsule(s) PO BID No Start Date 08/08/2015 Inactive Medrol (Vipul) 4 mg Tabs in a Dose Pack RxNorm: 234182 Tablet(s) PO N o Start Date 01/01/2011 Inactive as directed Promethazine-DM 6.25 mg-15 mg/5 mL Syrup RxNorm: 562829 1-2 Teaspoon(s) PO Q4H prn cough No Start Date 08/28/2011 Inactive Claritin 10 mg tablet RxNorm: 043974 1 Tablet(s) PO QD No Start Date 08/08/2015 Inactive Rraslxvxuf-Tjrcg-JGC-James-115HC Oral RxNorm: Oral No Start Da te 03/28/2019 Inactive Breo Ellipta 200 mcg-25 mcg/dose powder for inhalation RxNor m: 1405726 1 Puff(s) INH QD No Start Date 04/09/2017 Inactive metformin 500 mg Tab RxNorm: 855798 1 Tablet(s) PO QD No Start Date 0 08/17/2011 Inactive Diltiazem 240 mg Continuous Release Cap RxNorm: 444422 1 Capsul e(s) PO BID No Start Date 11/08/2009 Inactive fluoxetine 20 mg Cap RxNorm: 894541 1 Capsule(s) PO QD No Start Date 06/07/2010 Inactive Multivitamin & Mineral Formula Oral RxNorm: Oral No Start Da te 03/28/2019 Inactive Medrol (Vipul) 4 mg tablets in a dose pack RxNorm: 944207 Tablet(s) PO as directed No Start Date 05/28/2012 Inactive Fish Oil 1,000 mg Cap RxNorm: 1 Capsule(s) PO QD No Start Date 07/2018 Inactive Nexium 40 mg Cap RxNorm: 953288 1 Capsule(s) PO QD No Start Date 07/24 Inactive fluticasone 50 mcg/actuation nasal spray,suspension RxNorm: 6771754 2 [place] NASAL QD to each nostril No Start Date 08/03/2017 Inactive Viagra 100 mg tablet RxNorm: 566312 1 Tablet(s) PO as needed No Sta rt Date 09/17/2015 Inactive prednisone 20 mg tablet RxNorm: 915466 1 Tablet(s) PO B ID for 4 days then 1 po daily for 4 days No Start Date 11/23/2018 Inactive Benicar HCT 40 mg-25 mg Tab RxNorm: 423939 1 Tablet(s) PO QD No Sta rt [...] Date S ervice Location MICROALBUMIN URINE RANDOM 34127 MICRL MG/L 5.8 MG/L 03/2011 Unknown MICROALBUMIN URINE RANDOM 77896 XM.ALB/CRE 5.2 MG/GCR Unknown MICROALBUMIN URINE RANDOM 46942 CREAT MG/D 111 MG/DL 03/2011 Unknown MICROALBUMIN URINE RANDOM 48951 CRE/100 1.11 G/L 12/24 Unknown Procedures Procedure Codes Date FLU VACC PRSV FREE INC ANTIG 65 AND OLDER CPT-4: 07481 03/04/2019 ADMIN PNEUMOCOCCAL VACCINE CPT-4: G0009 03/04/2019 ADMIN INFLUENZA VIRUS VAC CPT-4: G0008 03/04/2019 FLU VACC PRSV FREE INC ANTIG 65 AND OLDER CPT-4: 38724 03/04/2019 PNEUMOCOCCAL VACC 23 [facility] IM CPT-4: 59312 03/04/2019 THER/PROPH/DIAG INJ SC/IM CPT-4: 28802 08/11/2018 TRIAMCINOLONE ACET INJ NOS CPT-4: J3301 08/11/2018 DEXAMETHASONE SODIUM PHOS CPT-4: J1100 08/11/2018 THER/PROPH/DIAG INJ SC/IM CPT-4: 31145 07/16/2018 METHYLPREDNISOLONE INJECTION CPT-4: J2930 07/16/2018 INFLUENZA ASSAY W/OPTIC CPT-4: 65909 07/16/2018 THER/PROPH/DIAG INJ SC/IM CPT-4: 08228 07/13/2018 TRIAMCINOLONE ACET INJ NOS CPT-4: J3301 07/13/2018 THER/PROPH/DIAG INJ SC/IM CPT-4: 92694 05/04/2018 METHYLPREDNISOLONE INJECTION CPT-4: J2930 05/04/2018 FLU VACC PRSV FREE INC ANTIG 65 AND OLDER CPT-4: 63006 02/10/2018 PNEUMOCOCCAL VACC 13 [facility] IM CPT-4: 76840 02/10/2018 ADMIN INFLUENZA VIRUS VAC CPT-4: G0008 02/10/2018 ADMIN PNEUMOCOCCAL VACCINE CPT-4: G0009 02/10/2018 THER/PROPH/DIAG INJ SC/IM CPT-4: 26681 09/09/2017 TRIAMCINOLONE ACET INJ NOS CPT-4: J3301 09/09/2017 ALBUTEROL NON-COMP UNIT CPT-4: J7613 04/10/2017 AIRWAY INHALATION TREATMENT CPT-4: 85286 04/10/2017 PRESCRIP TRANSMIT VIA ERX SY CPT-4: G8553 04/10/2017 FLU VACC PRSV FREE INC ANTIG 65 AND OLDER CPT-4: 97545 03/28/2017 ADMIN INFLUENZA VIRUS VAC CPT-4: G0008 03/28/2017 PRESCRIP TRANSMIT VIA ERX SY CPT-4: G8553 08/27/2016 PRESCRIP TRANSMIT VIA ERX SY CPT-4: G8553 06/14/2016 ALBUTEROL NON-COMP UNIT CPT-4: J7613 06/13/2016 AIRWAY INHALATION TREATMENT CPT-4: 68753 06/13/2016 PRESCRIP TRANSMIT VIA ERX SY CPT-4: [...] CPT-4: G8553 11/07/2014 THER/PROPH/DIAG INJ SC/IM CPT-4: 82802 09/21/2014 METHYLPREDNISOLONE INJECTION CPT-4: J2930 09/21/2014 PRESCRIP TRANSMIT VIA ERX SY CPT-4: G8553 09/21/2014 PRESCRIP TRANSMIT VIA ERX SY CPT-4: G8553 06/10/2014 URINALYSIS NONAUTO W/O SCOPE CPT-4: 24823 06/01/2012 PRESCRIP TRANSMIT VIA ERX SY CPT-4: G8553 05/25/2012 PRESCRIP TRANSMIT VIA ERX SY CPT-4: G8553 12/03/2011 CUR TOBACCO NON-USER CPT-4: G8457 05/30/2011 PRESCRIP TRANSMIT VIA ERX SY CPT-4: G8553 05/30/2011 URINALYSIS NONAUTO W/O SCOPE CPT-4: 50181 01/01/2011 URINE CULTURE/ COLONY COUNT CPT-4: 53919 01/01/2011 CUR TOBACCO NON-USER CPT-4: G8457 01/01/2011 [...] 1: 114/68 Code: 8480-6 BMI: 43.5 Code: 26491-2 Heart Rate 1: 52 bpm Height: 6'1" [...] 1: 136/72 Code: 8480-6 BMI: 42.7 Code: 98685-2 Heart Rate 1: 60 bpm Height: 6'1" Respiratory Rate: 22 bpm SpO2: 95% Tempera ture: 37.1 (C) / 98.7 (F) Weight: 324 lbs 02/10/2018 Blood Pressure 1: 146/78 Code: 8480-6 BMI: 42.4 Code: 16748-2 Heart Rate 1: 64 bpm Height: 6'1" Respiratory Rate: 22 bpm SpO2: 95% Tempera ture: 36.5 (C) / 97.7 (F) Weight: 321 lbs 11/05/2017 Blood Pressure 1: 128/84 Code: 8480-6 BMI: 42.9 Code: 87056-2 Heart Rate 1: 52 bpm Height: 6'1" Respiratory Rate: 22 bpm SpO2: 95% Tempera ture: 36.3 (C) / 97.3 (F) Weight: 325 lbs 09/09/2017 Blood Pressure 1: 162/90 Code: 8480-6 BMI: 42.5 Code: 56701-6 Heart Rate 1: 60 bpm Height: 6'1" Respiratory Rate: 24 bpm SpO2: 95% Tempera ture: 36.4 (C) / 97.6 (F) Weight: 322 lbs 08/07/2017 Blood Pressure 1: 152/90 Code: 8480-6 BMI: 42.2 Code: 55482-7 Heart Rate 1: 60 bpm Height: 6'1" Respiratory Rate: 26 bpm SpO2: 94% Tempera ture: 36.6 (C) / 97.8 (F) Weight: 320 lbs 08/04/2017 Blood Pressure 1: 150/86 Code: 8480-6 BMI: 42.7 Code: 98327-9 Heart Rate 1: 64 bpm Height: 6'1" Respiratory Rate: 20 bpm SpO2: 94% Tempera ture: 36.3 (C) / 97.3 (F) Weight: 324 lbs 06/04/2017 Blood Pressure 1: 164/90 Code: 8480-6 Heart Rate 1: 60 bpm Respiratory Rate: 24 bpm SpO2: 94% Temperature: 36.8 (C) / 98.3 (F) 06/02/2017 Blood Pressure 1: 162/80 Code: 8480-6 BMI: 42.9 Code: 07127-6 Heart Rate 1: 66 bpm Height: 6'1" Respiratory Rate: 22 bpm SpO2: 98% Tempera ture: 36.6 (C) / 97.8 (F) Weight: 325 lbs 05/05/2017 Blood Pressure 1: 164/94 Code: 8480-6 BMI: 41.4 Code: 06201-8 Heart Rate 1: 64 bpm Height: 6'1" Respiratory Rate: 22 bpm SpO2: 95% Tempera ture: 36.4 (C) / 97.5 (F) Weight: 314 lbs 04/10/2017 Blood Pressure 1: 136/78 Code: 8480-6 BMI: 42.0 Code: 04167-4 Heart Rate 1: 76 bpm Height: 6'1" Respiratory Rate: 24 bpm SpO2: 92% Tempera ture: 35.9 (C) / 96.7 (F) Weight: 318 lbs 02/03/2017 Blood Pressure 1: 134/82 Code: 8480-6 BMI: 41.7 Code: 64426-0 Heart Rate 1: 72 bpm Height: 6'1" Respiratory Rate: 24 bpm SpO2: 95% Tempera ture: 36.1 (C) / 97.0 (F) Weight: 316 lbs 10/30/2016 Blood Pressure 1: 126/74 Code: 8480-6 BMI: 41.3 Code: 23503-0 Heart Rate 1: 68 bpm Height: 6'1" Respiratory Rate: 20 bpm Temperature: 37 .1 (C) / 98.8 (F) Weight: 313 lbs 08/30/2016 Blood Pressure 1: 146/80 Code: 8480-6 BMI: 41.7 Code: 00770-8 Heart Rate 1: 64 bpm Height: 6'1" Respiratory Rate: 24 bpm SpO2: 94% Tempera ture: 36.6 (C) / 97.8 (F) Weight: 316 lbs 08/27/2016 Blood Pressure 1: 12478 Code: 8480-6 Heart Rate 1: 66 bpm Height: 6'2" Respiratory Rate: 18 bpm SpO2: 94% Temperature: 36.6 (C) / 97.8 (F) Weight: 07/02/2016 Blood Pressure 1: 126/78 Code: 8480-6 BMI: 41.4 Code: 05930-1 Heart Rate 1: 68 bpm Height: 6'1" Respiratory Rate: 24 bpm SpO2: 94% Tempera ture: 36.6 (C) / 97.8 (F) Weight: 314 lbs 06/14/2016 Blood Pressure 1: 146/82 Code: 8480-6 Heart Rate 1: 80 bpm Respiratory Rate: 20 bpm SpO2: 95% Temperature: 37.3 (C) / 99.2 (F) 06/13/2016 Blood Pressure 1: 146/ Code: 8480-6 BMI: 40.5 Code: 46520-0 Heart Rate 1: 66 bpm Height: 6'1" Respiratory Rate: 28 bpm SpO2: 93% Tempera ture: 35.8 (C) / 96.4 (F) Weight: 307 lbs 05/14/2016 Blood Pressure 1: 146/90 Code: 8480-6 BMI: 41.2 Code: 84879-0 Heart Rate 1: 68 bpm Height: 6'1" Respiratory Rate: 26 bpm Temperature: 36 .8 (C) / 98.2 (F) Weight: 312 lbs 04/29/2016 Blood Pressure 1: 152/90 Code: 8480-6 BMI: 41.0 Code: 62872-8 Heart Rate 1: 68 bpm Height: 6'1" Respiratory Rate: 26 bpm SpO2: 94% Tempera ture: 36.1 (C) / 96.9 (F) Weight: 311 lbs 04/22/2016 Blood Pressure 1: 152/94 Code: 8480-6 BMI: 40.9 Code: 38465-5 Heart Rate 1: 68 bpm Height: 6'1" Respiratory Rate: 24 bpm SpO2: 94% Tempera ture: 36.2 (C) / 97.2 (F) Weight: 310 lbs 04/01/2016 Blood Pressure 1: 156/78 Code: 8480-6 BMI: 40.6 Code: 95915-6 Heart Rate 1: 84 bpm Height: 6'1" Respiratory Rate: 22 bpm SpO2: 95% Tempera ture: 37.1 (C) / 98.7 (F) Weight: 308 lbs 11/30/2015 Blood Pressure 1: 142/80 Code: 8480-6 BMI: 40.5 Code: 08159-0 Heart Rate 1: 88 bpm Height: 6'1" Respiratory Rate: 22 bpm Temperature: 36 .2 (C) / 97.2 (F) Weight: 307 lbs 08/29/2015 Blood Pressure 1: 132/70 Code: 8480-6 BMI: 40.0 Code: 16703-6 Heart Rate 1: 76 bpm Height: 6'1" Respiratory Rate: 24 bpm SpO2: 96% Tempera ture: 36.7 (C) / 98.0 (F) Weight: 303 lbs 08/14/2015 Blood Pressure 1: 126/80 Code: 8480-6 BMI: 39.4 Code: 38836-8 Heart Rate 1: 92 bpm Height: 6'1" Respiratory Rate: 24 bpm SpO2: 94% Tempera ture: 37.8 (C) / 100.0 (F) Weight: 299 lbs 08/09/2015 Blood Pressure 1: 146/82 Code: 8480-6 Heart Rate 1: 82 bpm Respiratory Rate: 22 bpm SpO2: 93% Temperature: 35.9 (C) / 96.6 (F) We ight: 310 lbs 05/22/2015 Blood Pressure 1: 156/76 Code: 8480-6 BMI: 41.0 Code: 98235-4 Heart Rate 1: 100 bpm Height: 6'1" Respiratory Rate: 22 bpm Temperature: 37 .2 (C) / 98.9 (F) Weight: 311 lbs 02/13/2015 Blood Pressure 1: 166/90 Code: 8480-6 BMI: 41.2 Code: 54208-0 Heart Rate 1: 72 bpm Height: 6'1" Respiratory Rate: 24 bpm SpO2: 93% Tempera ture: 36.9 (C) / 98.5 (F) Weight: 312 lbs 11/07/2014 Blood Pressure 1: 134/70 Code: 8480-6 BMI: 40.5 Code: 67044-4 Heart Rate 1: 76 bpm Height: 6'1" Respiratory Rate: 24 bpm Temperature: 36 .9 (C) / 98.4 (F) Weight: 307 lbs 10/04/2014 Blood Pressure 1: 144/86 Code: 8480-6 BMI: 40.1 Code: 77188-3 Heart Rate 1: 76 bpm Height: 6'1" Respiratory Rate: 28 bpm Temperature: 36 .6 (C) / 97.9 (F) Weight: 304 lbs 09/22/2014 Blood Pressure 1: 142/80 Code: 8480-6 BMI: 40.0 Code: 94226-0 Heart Rate 1: 80 bpm Height: 6'1" Respiratory Rate: 22 bpm SpO2: 96% Tempera ture: 36.6 (C) / 97.8 (F) Weight: 303 lbs 09/21/2014 Blood Pressure 1: 160/66 Code: 8480-6 BMI: 40.0 Code: 70095-8 Heart Rate 1: 90 bpm Height: 6'1" Respiratory Rate: 26 bpm SpO2: 94% Tempera ture: 35.7 (C) / 96.2 (F) Weight: 303 lbs 06/28/2014 Blood Pressure 1: 132/80 Code: 8480-6 BMI: 41.0 Code: 26405-9 Heart Rate 1: 64 bpm Height: 6' Respiratory Rate: 20 bpm Temperature: 36 .7 (C) / 98.0 (F) Weight: 302 lbs 06/10/2014 Blood Pressure 1: 152/70 Code: 8480-6 BMI: 41.1 Code: 12822-5 Heart Rate 1: 76 bpm Height: 6' Respiratory Rate: 20 bpm Temperature: 36 .6 (C) / 97.8 (F) Weight: 303 lbs 03/29/2014 Blood Pressure 1: 132/78 Code: 8480-6 BMI: 40.6 Code: 74011-2 Heart Rate 1: 84 bpm Height: 6' Respiratory Rate: 22 bpm Temperature: 37 .1 (C) / 98.8 (F) Weight: 299 lbs 11/30/2013 Blood Pressure 1: 136/84 Code: 8480-6 BMI: 39.2 Code: 92311-9 Heart Rate 1: 76 bpm Height: 6' Respiratory Rate: 20 bpm Temperature: 36 .8 (C) / 98.2 (F) Weight: 289 lbs 08/03/2013 Blood Pressure 1: 144/80 Code: 8480-6 Heart Rate 1: 86 bpm Respiratory Rate: 20 bpm Temperature: 36.6 (C) / 97.8 (F) Weight: 296 lbs 04/06/2013 Blood Pressure 1: 142/90 Code: 8480-6 BMI: 40.3 Code: 37825-8 Heart Rate 1: 88 bpm Height: 6' Respiratory Rate: 20 bpm Temperature: 36 .6 (C) / 97.8 (F) Weight: 297 lbs 12/01/2012 Blood Pressure 1: 124/78 Code: 8480-6 BMI: 38.7 Code: 08360-0 Heart Rate 1: 76 bpm Height: 6' Respiratory Rate: 20 bpm Temperature: 37 .2 (C) / 98.9 (F) Weight: 285 lbs 08/04/2012 Blood Pressure 1: 128/80 Code: 8480-6 BMI: 38.2 Code: 39147-9 Heart Rate 1: 76 bpm Height: 6' Respiratory Rate: 20 bpm Temperature: 37 .0 (C) / 98.6 (F) Weight: 282 lbs 05/29/2012 Blood Pressure 1: 138/78 Code: 8480-6 BMI: 36.6 Code: 41822-3 Heart Rate 1: 66 bpm Height: 6' Temperature: 36.7 (C) / 98.1 (F) Weight: 270 lbs 05/25/2012 Blood Pressure 1: 128/72 Code: 8480-6 BMI: 39.9 Code: 20416-2 Heart Rate 1: 74 bpm Height: 6' Temperature: 36.1 (C) / 97.0 (F) Weight: 294 lbs 04/07/2012 Blood Pressure 1: 124/76 Code: 8480-6 BMI: 39.9 Code: 42168-7 Heart Rate 1: 72 bpm Height: 6' Respiratory Rate: 20 bpm Temperature: 36 .9 (C) / 98.5 (F) Weight: 294 lbs 12/16/2011 Blood Pressure 1: 128/80 Code: 8480-6 BMI: 40.8 Code: 74388-3 Heart Rate 1: 74 bpm Height: 6' Temperature: 36.6 (C) / 97.8 (F) Weight: 301 lbs 12/03/2011 Blood Pressure 1: 132/76 Code: 8480-6 BMI: 40.8 Code: 61674-2 Heart Rate 1: 68 bpm Height: 6' Respiratory Rate: 20 bpm Temperature: 36 .8 (C) / 98.2 (F) Weight: 301 lbs 08/29/2011 Blood Pressure 1: 140/68 Code: 8480-6 BMI: 40.8 Code: 42717-7 Heart Rate 1: 80 bpm Height: 6' Respiratory Rate: 20 bpm Temperature: 36 .4 (C) / 97.6 (F) Weight: 301 lbs 05/30/2011 Blood Pressure 1: 134/82 Code: 8480-6 BMI: 41.5 Code: 65331-6 Heart Rate 1: 76 bpm Height: 6' [...] 1: 126/72 Code: 8480-6 BMI: 41.2 Code: 13027-1 Heart Rate 1: 76 bpm Height: 6' [...] 1: 152/90 Code: 8480-6 BMI: 37.7 Code: 00275-0 Heart Rate 1: 92 bpm Height: 6'1" [...] up 10/09/2009 6mo fwup cough 08/22/2009 using phanitussin dm Encounters Encounter Performer Location Codes Date ([id number]) OFFICE/OUTPATIENT VISIT EST Diagnosis: Chronic obstructive pulmonary disease, unspecified[ICD10: J44.9] Diagnosis: Essential (primary) hypertension[ICD10: I10] Diagnosis: Mixed hyperlipidemia[ICD10: E78.2] Diagnosis: Type 2 diabetes mellitus with hyperglycemia[ICD10: E11.65] Neela Cunningham [employer] CPT-4: 01916 08/30/2019 ([id number]) OFFICE/OUTPATIENT VISIT EST Diagnosis: Chronic obstructive pulmonary disease with (acute) exacerbation[ICD10: J44.1] Neela Valentineushahao MIRZANEELA JulissaMendez [employer] CPT- 4: 80707 08/10/2019 ([id number]) OFFICE/OUTPATIENT VISIT EST Diagnosis: Sore on toe[ICD10: L98.9] Neela VASQUEZ [employer] CPT-4: 86494 07/06/2019 ([id number]) OFFICE/OUTPATIENT VISIT EST Diagnosis: Advanced chronic obstructive pulmonary disease[ICD10: J44.9] 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] Neela Sergeushahao ANNQ [employer] CPT-4: 90574 05/10/2019 ([id number]) OFFICE/OUTPATIENT VISIT EST Diagnosis: Chronic obstructive pulmonary disease with (acute) exacerbation[ICD10: J44.1] Diagnosis: Hypokalemia[ICD10: E87.6] 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] Neela Orendhao ANNQ [employer] CPT-4: 61474 03/29/2019 ([id number]) NURSE/OUTPATIENT VISIT EST Diagnosis: PNEUMOCOCCAL VACCINE[ICD10: Z23] Neelachani VALENTINEMagneto[employer] CPT-4: 03802 03/04/2019 ([id number]) OFFICE/OUTPATIENT VISIT EST Diagnosis: Chronic obstructive pulmonary disease with (acute) exacerbation[ICD10: J44.1] Diagnosis: Other nonspecific abnormal finding of lung field[ICD10: R91.8] Neela HYMAN [employer] [facility] CPT-4: 58478 01/05/2019 ([id number]) OFFICE/OUTPATIENT VISIT EST Diagnosis: Solitary pulmonary nodule[ICD10: R91.1] 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] Diagnosis: Tinea corporis[ICD10: B35.4] Neela HYMAN [employer] [facility] CPT-4: 12999 12/09/2018 ([id number]) OFFICE/OUTPATIENT VISIT EST Diagnosis: COUGH[ICD10: R05] Diagnosis: Chronic obstructive pulmonary disease, unspecified[ICD10: J44.9] Diagnosis: Other disorders of lung[ICD10: J98.4] Diagnosis: Other nonspecific abnormal finding of lung field[ICD10: R91.8] Neela ZHANG [employer] [facility] CPT-4: 35802 11/24/2018 ([id number]) OFFICE/OUTPATIENT VISIT EST Diagnosis: Pneumonia, unspecified organism[ICD10: J18.9] Amita HYMAN [employer] [facility] CPT-4: 14038 09/16/2018 ([id number]) OFFICE/OUTPATIENT VISIT EST Diagnosis: Pneumonia, unspecified organism[ICD10: J18.9] Neela HYMAN [employer] [facility] CPT-4: 20462 09/03/2018 ([id number]) OFFICE/OUTPATIENT VISIT EST Diagnosis: Personal history of pneumonia (recurrent)[ICD10: Z87.01] Diagnosis: Cough[ICD10: R05] Diagnosis: Essential (primary) hypertension[ICD10: I10] Diagnosis: Type 2 diabetes mellitus with hyperglycemia[ICD10: E11.65] Amita HYMAN [employer] [facility] CPT-4: 49981 08/27/2018 OFFICE/OUTPATIENT VISIT EST Diagnosis: Pneumonia, unspecified organism[ICD10: J18.9] Diagnosis: Chronic obstructive pulmonary disease with (acute) exacerbation[ICD10: J44.1] Diagnosis: Other specified symptoms and signs involving the circulatory and respiratory systems[ICD10: R09.89] Diagnosis: Essential (primary) hypertension[ICD10: I10] Amita HYMAN [employer] [facility] CPT-4: 13568 08/13/2018 OFFICE/OUTPATIENT VISIT EST Diagnosis: Pneumonia, unspecified organism[ICD10: J18.9] Diagnosis: Other specified symptoms and signs involving the circulatory and respiratory systems[ICD10: R09.89] Amita HYMAN [employer] [facility] CPT-4: 45114 08/11/2018 ([id number]) OFFICE/OUTPATIENT VISIT EST Diagnosis: Dyspnea, unspecified[ICD10: R06.00] Diagnosis: Chronic obstructive pulmonary disease with (acute) exacerbation[ICD10: J44.1] Diagnosis: Pneumonia, unspecified organism[ICD10: J18.9] Amita HYMAN [employer] [facility] CPT-4: 21640 07/16/2018 ([id number]) OFFICE/OUTPATIENT VISIT EST Diagnosis: Acute bronchitis due to other specified organisms[ICD10: J20.8] Diagnosis: Cough[ICD10: R05] Amita VALENTINEOffersBy.MeHAO [employer] [facility] T-4: 23850 07/13/2018 ([id number]) OFFICE/OUTPATIENT VISIT EST Diagnosis: Essential (primary) hypertension[ICD10: I10] Diagnosis: Chronic obstructive pulmonary disease, unspecified[ICD10: J44.9] Diagnosis: Type 2 diabetes mellitus with hyperglycemia[ICD10: E11.65] Diagnosis: Mixed hyperlipidemia[ICD10: E78.2] Neela STERLING [employer]EL[employer] [facility] CPT-4: 42124 06/03/2018 ([id number]) OFFICE/OUTPATIENT VISIT EST Diagnosis: Chronic obstructive pulmonary disease, unspecified[ICD10: J44.9] Gely Harp NEELA Octavio [employer]INEL[employer] [facility] CPT-4: 64831 05/04/2018 ([id number]) OFFICE/OUTPATIENT VISIT EST Diagnosis: Essential (primary) hypertension[ICD10: I10] Diagnosis: Localized edema[ICD10: R60.0] Neela MURILLO JulissaMendez [employer] [facility] CPT-4: 55083 03/03/2018 ([id number]) OFFICE/OUTPATIENT VISIT EST Diagnosis: Localized edema[ICD10: R60.0] Neela HYMAN [employer] [facility] CPT-4: 59254 02/17/2018 ([id number]) OFFICE/OUTPATIENT VISIT EST Diagnosis: FLU VACCINE[ICD10: Z23] Diagnosis: PNEUMOCOCCAL VACCINE[ICD10: Z23] Diagnosis: Type 2 diabetes mellitus without complications[ICD10: E11.9] Diagnosis: Mixed hyperlipidemia[ICD10: E78.2] Diagnosis: Essential (primary) hypertension[ICD10: I10] Diagnosis: Localized edema[ICD10: R60.0] Diagnosis: Chronic obstructive pulmonary disease, unspecified[ICD10: J44.9] Neela HYMAN [employer] [facility] CPT-4: 74953 02/10/2018 ([id number]) OFFICE/OUTPATIENT VISIT EST Diagnosis: Type 2 diabetes mellitus with hyperglycemia[ICD10: E11.65] Diagnosis: Mixed hyperlipidemia[ICD10: E78.2] Diagnosis: Essential (primary) hypertension[ICD10: I10] Diagnosis: Chronic obstructive pulmonary disease, unspecified[ICD10: J44.9] Diagnosis: Cutaneous abscess of back [any part, except buttock][ICD10: L02.212] Neela HYMAN [employer] [facility] CPT-4: 65730 11/05/2017 ([id number]) OFFICE/OUTPATIENT VISIT EST Diagnosis: Allergic urticaria[ICD10: L50.0] Gely HYMAN [employer] [facility] CPT-4: 62808 09/09/2017 ([id number]) OFFICE/OUTPATIENT VISIT EST Diagnosis: Generalized enlarged lymph nodes[ICD10: R59.1] Diagnosis: Acute gastritis without bleeding[ICD10: K29.00] Gely HYMAN [employer] [facility] CPT-4: 51820 08/07/2017 ([id number]) OFFICE/OUTPATIENT VISIT EST Diagnosis: Type 2 diabetes mellitus without complications[ICD10: E11.9] Diagnosis: Mixed hyperlipidemia[ICD10: E78.2] Diagnosis: Essential (primary) hypertension[ICD10: I10] Neela MIRZALINE Octavio HYMAN [employer] [facility] CPT-4: 95689 08/04/2017 ([id number]) OFFICE/OUTPATIENT VISIT EST Diagnosis: Zoster without complications[ICD10: B02.9] Diagnosis: Acute sialoadenitis[ICD10: K11.21] Gely HYMAN DO [facility] CPT-4: 81986 06/04/2017 OFFICE/OUTPATIENT VISIT EST Diagnosis: Zoster without complications[ICD10: B02.9] Diagnosis: Acute sialoadenitis[ICD10: K11.21] Gely HYMAN DO [facility] CPT-4: 06179 06/02/2017 ([id number]) OFFICE/OUTPATIENT VISIT EST Diagnosis: Type 2 diabetes mellitus without complications[ICD10: E11.9] Diagnosis: Mixed hyperlipidemia[ICD10: E78.2] Diagnosis: Essential (primary) hypertension[ICD10: I10] Diagnosis: Chronic obstructive pulmonary disease, unspecified[ICD10: J44.9] Neela Yenni MIRZALINE Octavio ZHANG [employer] [facility] CPT-4: 70190 05/05/2017 OFFICE/OUTPATIENT VISIT EST Diagnosis: Chronic obstructive pulmonary disease with acute lower respiratory infection[ICD10: J44.0] Diagnosis: Impacted cerumen, bilateral[ICD10: H61.23] Gely HYMAN [facility] CPT-4: 90616 04/10/2017 ([id number]) OFFICE/OUTPATIENT VISIT EST Diagnosis: FLU VACCINE[ICD10: Z23] Neela ZHANG [employer] [facility] CPT-4: 29524 03/28/2017 ([id number]) OFFICE/OUTPATIENT VISIT EST Diagnosis: Type 2 diabetes mellitus without complications[ICD10: E11.9] Diagnosis: Mixed hyperlipidemia[ICD10: E78.2] Diagnosis: Essential (primary) hypertension[ICD10: I10] Diagnosis: Chronic obstructive pulmonary disease, unspecified[ICD10: J44.9] Neela Sergeushahao MIRZANEELA Octavio HY[employer] [facility] CPT-4: 01923 02/03/2017 ([id number]) OFFICE/OUTPATIENT VISIT EST Diagnosis: Type 2 diabetes mellitus with hyperglycemia[ICD10: E11.65] Diagnosis: Mixed hyperlipidemia[ICD10: E78.2] Diagnosis: Essential (primary) hypertension[ICD10: I10] Diagnosis: Chronic obstructive pulmonary disease, unspecified[ICD10: J44.9] Neela HYMAN DO [facility] CPT-4: 75031 10/30/2016 ([id number]) NO CHARGE Diagnosis: Acute bronchitis, unspecified[ICD10: J20.9] Sammi HYMAN DO [facility] CPT-4: 21579 08/30/2016 ([id number]) OFFICE/OUTPATIENT VISIT EST Diagnosis: Acute bronchitis, unspecified[ICD10: J20.9] Diagnosis: Other seasonal allergic rhinitis[ICD10: J30.2] Sammi HYMAN DO [facility] CPT-4: 61701 08/27/2016 ([id number]) OFFICE/OUTPATIENT VISIT EST Diagnosis: Type 2 diabetes mellitus without complications[ICD10: E11.9] Diagnosis: Mixed hyperlipidemia[ICD10: E78.2] Diagnosis: Essential (primary) hypertension[ICD10: I10] Neela HYMAN DO [facility] CPT-4: 50607 07/02/2016 ([id number]) OFFICE/OUTPATIENT VISIT EST Diagnosis: Acute bronchitis, unspecified[ICD10: J20.9] Sammi HYMAN [employer] [facility] CPT-4: 36598 06/14/2016 ([id number]) OFFICE/OUTPATIENT VISIT EST Diagnosis: Acute bronchitis, unspecified[ICD10: J20.9] Sammi HYMAN DO [facility] CPT-4: 73106 06/13/2016 ([id number]) OFFICE/OUTPATIENT VISIT EST Diagnosis: Essential (primary) hypertension[ICD10: I10] Neela HYMAN DO [facility] CPT-4: 19631 05/14/2016 ([id number]) OFFICE/OUTPATIENT VISIT EST Diagnosis: Essential (primary) hypertension[ICD10: I10] Neela HYMAN DO [facility] CPT-4: 56986 04/29/2016 ([id number]) OFFICE/OUTPATIENT VISIT EST Diagnosis: Unspecified abdominal pain[ICD10: R10.9] Diagnosis: Left lower quadrant pain[ICD10: R10.32] Diagnosis: Left upper quadrant pain[ICD10: R10.12] Diagnosis: Essential (primary) hypertension[ICD10: I10] Neela HYMAN DO [facility] CPT-4: 56192 04/22/2016 ([id number]) OFFICE/OUTPATIENT VISIT EST Diagnosis: Type 2 diabetes mellitus without complications[ICD10: E11.9] Diagnosis: Mixed hyperlipidemia[ICD10: E78.2] Diagnosis: Essential (primary) hypertension[ICD10: I10] Neela HYMAN DO [facility] CPT-4: 17696 04/01/2016 ([id number]) OFFICE/OUTPATIENT VISIT EST Diagnosis: Type 2 diabetes mellitus with hyperglycemia[ICD10: E11.65] Diagnosis: Mixed hyperlipidemia[ICD10: E78.2] Diagnosis: Essential (primary) hypertension[ICD10: I10] Neela HYMAN DO [facility] CPT-4: 59436 11/30/2015 ([id number]) OFFICE/OUTPATIENT VISIT EST Diagnosis: Type 2 diabetes mellitus with diabetic neuropathy, unspecified[ICD10: E11.40] Diagnosis: Essential (primary) hypertension[ICD10: I10] Diagnosis: Mixed hyperlipidemia[ICD10: E78.2] Neela HYMAN DO [facility] CPT-4: 67637 08/29/2015 ([id number]) OFFICE/OUTPATIENT VISIT EST Diagnosis: COUGH[ICD10: R05] Diagnosis: Wheezing[ICD10: R06.2] Diagnosis: Type 2 diabetes mellitus with diabetic neuropathy, unspecified[ICD10: E11.40] Neela HYMAN DO [facility] CPT-4: 55254 08/14/2015 ([id number]) OFFICE/OUTPATIENT VISIT EST Diagnosis: Other seasonal allergic rhinitis[ICD10: J30.2] Diagnosis: Dyspnea, unspecified[ICD10: R06.00] Diagnosis: Wheezing[ICD10: R06.2] Sammi Najera NEELA HYMAN DO [facility] CPT-4: 37337 08/09/2015 ([id number]) OFFICE/OUTPATIENT VISIT EST Diagnosis: Essential (primary) hypertension[ICD10: I10] Diagnosis: Type 2 diabetes mellitus with hyperglycemia[ICD10: E11.65] Diagnosis: Mixed hyperlipidemia[ICD10: E78.2] Neela HYMAN [employer] [facility] CPT-4: 55093 05/22/2015 ([id number]) OFFICE/OUTPATIENT VISIT EST Diagnosis: 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] Diagnosis: - I - HYPERTENSION[ICD9: 401.9] Diagnosis: - I - HYPERLIPIDEMIA NEC/NOS[ICD9: 272.4] Diagnosis: Left hand paresthesia[ICD9: 782.0] Neela HYMAN [employer] [facility] CPT-4: 07696 02/13/2015 ([id number]) OFFICE/OUTPATIENT VISIT EST Diagnosis: HYPERLIPIDEMIA NEC/NOS[ICD9: 272.4] Diagnosis: 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] Neela HYMAN [facility] CPT-4: 56396 11/07/2014 ([id number]) OFFICE/OUTPATIENT VISIT EST Diagnosis: ALLERGIC RHINITIS[ICD9: 477.9] Diagnosis: WHEEZING[ICD9: 786.07] Neela Duarte [employer] [facility] CPT-4: 96541 10/04/2014 ([id number]) OFFICE/OUTPATIENT VISIT EST Diagnosis: BRONCHITIS, ACUTE[ICD9: 466.0] Diagnosis: WHEEZING[ICD9: 786.07] Loren BADILLO R [employer] [facility] CPT-4: 26835 09/22/2014 ([id number]) OFFICE/OUTPATIENT VISIT EST Diagnosis: DYSPNEA[ICD9: 786.09] Diagnosis: WHEEZING[ICD9: 786.07] Diagnosis: Arrhythmia[ICD9: 427.9] Loren ZHANG ER [facility] CPT-4: 80967 09/21/2014 ([id number]) OFFICE/OUTPATIENT VISIT EST Diagnosis: 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, 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] Diagnosis: - I - HYPERLIPIDEMIA NEC/NOS[ICD9: 272.4] Diagnosis: - I - HYPERTENSION[ICD9: 401.9] Neela HYMAN [employer] [facility] CPT-4: 07883 06/28/2014 OFFICE/OUTPATIENT VISIT EST Diagnosis: SINUSITIS, ACUTE[ICD9: 461.9] Diagnosis: OTITIS MEDIA NOS[ICD9: 382.9] Sarah Jong NEELA [facility]avio [facility] CPT-4: 99030 06/10/2014 ([id number]) OFFICE/OUTPATIENT VISIT EST Diagnosis: 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] Diagnosis: - I - HYPERLIPIDEMIA NEC/NOS[ICD9: 272.4] Diagnosis: - I - HYPERTENSION[ICD9: 401.9] Neela Sergeushahao MIRZANEELA [facility]endez [facility] CPT-4: 99713 03/29/2014 ([id number]) OFFICE/OUTPATIENT VISIT EST Diagnosis: 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] Diagnosis: - I - HYPERTENSION[ICD9: 401.9] Diagnosis: - I - HYPERLIPIDEMIA NEC/NOS[ICD9: 272.4] Diagnosis: Hand lesion[ICD9: 709.9] Neela MURILLO JulissaMendez [facility] CPT-4: 12782 11/30/2013 ([id number]) OFFICE/OUTPATIENT VISIT EST Diagnosis: 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] Diagnosis: HYPERLIPIDEMIA NEC/NOS[ICD9: 272.4] Diagnosis: HYPERTENSION[ICD9: 401.9] Neela MURILLO JulissaMendez [facility] CPT-4: 96806 08/03/2013 ([id number]) OFFICE/OUTPATIENT VISIT EST Diagnosis: 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, 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] Diagnosis: HYPERTENSION[ICD9: 401.9] Diagnosis: HYPERLIPIDEMIA NEC/NOS[ICD9: 272.4] Neela GREGORIO [facility]endez [facility] CPT-4: 29491 04/06/2013 ([id number]) OFFICE/OUTPATIENT VISIT EST Diagnosis: 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] Diagnosis: HYPERLIPIDEMIA NEC/NOS[ICD9: 272.4] Diagnosis: HYPERTENSION[ICD9: 401.9] Neela MURILLO JulissaMendez [facility] CPT-4: 56661 12/01/2012 ([id number]) OFFICE/OUTPATIENT VISIT EST Diagnosis: 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] Diagnosis: HYPERTENSION[ICD9: 401.9] Diagnosis: HYPERLIPIDEMIA NEC/NOS[ICD9: 272.4] Neela Cunningham YENNI [facility] CPT-4: 87100 08/04/2012 ([id number]) OFFICE/OUTPATIENT VISIT EST Diagnosis: URINARY FREQUENCY[ICD9: 788.41] Neela Cunningham YENNI [facility] CPT-4: 94991 06/01/2012 OFFICE/OUTPATIENT VISIT EST Diagnosis: Agitation[ICD9: 307.9] Diagnosis: Frequent urination[ICD9: 788.41] Janet Cunningham YENNI [facility] CPT-4: 47446 05/29/2012 OFFICE/OUTPATIENT VISIT EST Diagnosis: SINUSITIS, ACUTE[ICD9: 461.9] Diagnosis: OTALGIA[ICD9: 388.70] Neela Cunningham YENNI [facility] CPT-4: 07809 05/25/2012 OFFICE/OUTPATIENT VISIT EST Diagnosis: 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, 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] Diagnosis: HYPERTENSION[ICD9: 401.9] Diagnosis: HYPERLIPIDEMIA NEC/NOS[ICD9: 272.4] Neela Cunningham YENNI [facility] CPT-4: 99562 04/07/2012 OFFICE/OUTPATIENT VISIT EST Diagnosis: FINGER INJURY[ICD9: 959.5] Janet Cunningham [facility] CPT-4: 35002 12/16/2011 ([id number]) OFFICE/OUTPATIENT VISIT EST Diagnosis: 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, 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] Diagnosis: HYPERTENSION[ICD9: 401.9] Diagnosis: HYPERLIPIDEMIA NEC/NOS[ICD9: 272.4] Neela Cunningham YENNI [facility] CPT-4: 71948 12/03/2011 ([id number]) OFFICE/OUTPATIENT VISIT EST Diagnosis: 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] Diagnosis: HYPERLIPIDEMIA NEC/NOS[ICD9: 272.4] Diagnosis: HYPERTENSION[ICD9: 401.9] Neela Cunningham SERGE NDER DO [facility] CPT-4: 18494 08/29/2011 OFFICE/OUTPATIENT VISIT EST Diagnosis: 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] Diagnosis: HYPERLIPIDEMIA NEC/NOS[ICD9: 272.4] Diagnosis: HYPERTENSION[ICD9: 401.9] Neela VALENTINE NDER DO [facility] CPT-4: 59168 05/30/2011 OFFICE/OUTPATIENT VISIT EST Diagnosis: SKIN SENSATION DISTURB[ICD9: 782.0] Neela GREGORIO S. ORENDER DO [facility] CPT-4: 16170 01/29/2011 OFFICE/OUTPATIENT VISIT EST Diagnosis: SKIN SENSATION DISTURB[ICD9: 782.0] Neela GREGORIO S. ORENDER DO [facility] CPT-4: 70022 01/14/2011 OFFICE/OUTPATIENT VISIT EST Neela VALENTINE NDER DO [facility] CPT- 4: 16254 01/01/2011 OFFICE/OUTPATIENT VISIT EST Neela VALENTINE NDER DO [facility] CPT- 4: 98107 11/29/2010 ([id number]) OFFICE/OUTPATIENT VISIT EST Neela HORAN SMendez ORENDER DO [facility] CPT-4: 79177 08/28/2010 ([id number]) OFFICE/OUTPATIENT VISIT, EST Neela WILDE S. ORENDER DO [facility] CPT-4: 00530 06/05/2010 ([id number]) OFFICE/OUTPATIENT VISIT, EST Neela Sergemelany ANN CHANI S. ORENDER DO [facility] CPT-4: 78732 02/05/2010 ([id number]) OFFICE/OUTPATIENT VISIT, EST Neela Sergeushahao WILDE S. ORENDER DO [facility] CPT-4: 21940 10/09/2009 ([id number]) OFFICE/OUTPATIENT VISIT, EST Neela Sergeushahao SETH CHANI S. ORENDER DO [facility] CPT-4: 01055 08/22/2009 Plan of Care Planned Activity Notes [...] : J44.9 08/30/2019 Appointment: Neela Hyman WPtel: [address] [place] [address] [place] FOLLOW UP 08/30/2019 Visit Diagnosis Plan: [...] : J44.1 08/10/2019 Appointment: Neela Hyman WPtel: [address] [place] [address] ACUTE ILLNESS 08/10/2019 Visit Diagnosis Plan: Sore on toe Discussion: Keep farhat an/dry Keflex Notify if worsens ICD-9 : 709.9 ICD-10 : L98.9 07/06/2019 Appointment: Neela Hyman WPtel: [address] [place] [address] ACUTE ILLNESS 07/06/2019 Patient Education: Abdoulaye Blue [id number] https://www.Epocrates.InSite Wireless/samplemd/resources/getResource/61/5kw325yc-54e5-7r04-69 Completed 07/06/2019 Visit Diagnosis Plan: Lymphoma involving lung Discussi on: Doing weekly lab and chemo ICD-9 : 202.82 ICD-10 : C85.99 05/10/2019 Visit Diagnosis Plan: Advanced chronic obstructive pul monary disease Discussion: Continue oxygen and pulmonary rehab Follow Up: 3 months ICD-9 : 496 ICD-10 : J44.9 05/10/2019 Appointment: Neela Hyman WPtel: [address] [place] [address] [place] FOLLOW UP 05/10/2019 Appointment: Neela Hyman WPtel: [address] [place] [address] he called 04/14/19-- he was at physical therapy which is why he didn't make his appointment time. NO SHOW 04/13/2019 Visit Diagnosis Plan: Hypokalemia Discussion: Increase K-dur to BID Will have lab drawn at Cancer center later this week ICD-9 : 276.8 ICD-10 : E87.6 03/29/2019 Visit Diagnosis Plan: Chronic obstructiv e pulmonary disease with (acute) exacerbation Discussion: On continuous oxygen at 5L v ia [place] Starts pulmonary rehab next week Follow Up: 6 weeks ICD-9 : 491.21 ICD-10 : J44.1 03/29/2019 Visit Diagnosis Plan: Lymphoma involving lung Discussi on: Sees oncology on Friday ICD-9 : 202.82 ICD-10 : C85.99 03/29/2019 Appointment: Neela Hyman WPtel: [address] [place] [address] Hospital Follow Up 03/29/2019 Appointment: Neela Hyman WPtel: [address] [place] [address] [place] INJECTION 03/04/2019 Visit Diagnosis Plan: Chronic obstructiv e pulmonary disease with (acute) exacerbation Discussion: Increase SVNS with duoneb to QID Prednisone taper ICD-9 : 491.21 ICD-10 : J44.1 01/05/2019 Visit Diagnosis Plan: Other nonspecific abnormal findi ng of lung field Discussion: Referral to pulmonology--will likely need bronchoscopy--path results discussed ICD-9 : 786.6 ICD-10 : R91.8 01/05/2019 Appointment: Neela Hyman WPtel: [address] [place], [place] [address] FOLLOW UP 01/05/2019 Patient Education: prednisone- Optimize[employer] Coupon [id number] https://www.Doctor Evidence/sampleExodus Payment Systems/resources/getResource/61/k4rs5256-826d-1g27-va Completed 01/05/2019 Care Plan: Referral Order SNOMED-CT : 30 [id number] Pending 01/05/2019 Appointment: Neela Hyman WPtel: [address] [place], [place] [phone] [place] CANCELED 12/21/2018 Visit Diagnosis Plan: Solitary pulmonary nodule Discus esmer: CT guided needle biopsy of RUL lung mass ICD-9 : 793.11 ICD-10 : R91.1 12/09/2018 Visit Diagnosis Plan: Tinea corporis Discussion: Diflu can--hold simvastatin and fenofibrate while taking ICD-9 : 110.5 ICD-10 : B35.4 12/09/2018 Appointment: Neela Hyman WPtel: [address] [place] [address] [place] FOLLOW UP 12/09/2018 Appointment: Gely Harp [address] [place] [address] [place] NO SHOW 12/01/2018 Visit Diagnosis Plan: [...] : J98.4 11/24/2018 Appointment: Neela Hyman WPtel: [address] [place], [place] [phone] [place] FOLLOW UP 11/24/2018 Care Plan: PET IMAGE FULL BODY LOINC : 4 2711-2 Pending 11/24/2018 Appointment: Neela Hyman WPtel: [address] [place], [place] [phone] [place] Consult 09/21/2018 Visit Diagnosis Plan: Pneumonia, unspecified organism Discussion: Patient clinically improved. Recent CT scan from 09/07 showed unresolved right upper lobe pneumonia. Finished another 7 days of levaquin. Will repeat CBC early next week. [facility] recommended in 4 weeks. Patient states understanding. ICD-9 : 486 ICD-10 : J18.9 09/16/2018 Appointment: Amita Henderson [facility] FOLLOW UP 09/16/2018 Visit Diagnosis Plan: Pneumonia, unspecified organism Discussion: Clinically patient feels and looks much better but need CT scan of chest due to ongoing round pneumonia in association with his known lymphoma ICD-9 : 486 ICD-10 : J18.9 09/03/2018 Appointment: Neela Hyman WPtel: [phone] [facility] FOLLOW UP 09/03/2018 Care Plan: CT THORAX [...] before upcoming appt. with doctor. [facility] Order sent with patient- CBC, CMP, TSH, Lipid, A1C ICD-9 : 250.02 ICD-10 : E11.65 08/27/2018 Visit Diagnosis Plan: Personal history of pneumonia (r ecurrent) Discussion: Much improved since last visit. Completed course of antibiotics. Seeing doctor next week for well visit. May consider repeat CXR at that appt. Patient states understanding. ICD-9 : V12.61 ICD-10 : Z87.01 08/27/2018 Appointment: Amita Henderson [facility] [employer] [id number] FOLLOW UP 08/27/2018 Visit Diagnosis Plan: Other [...] I10 08/13/2018 [facility] [facility] FOLLOW UP 08/13/2018 Appointment: [facility] CANCELED 08/13/2018 Patient Education: prednisone- Opt[employer]RX Coupon [id number] https://www.Doctor Evidence/Epocrates/resources/getResource/61/[email or web address] Completed 08/13/2018 Visit Diagnosis Plan: Other specified [...] ICD-10 : J18.9 08/11/2018 Appointment: Amita Henderson [address] [place], [place] [address] ACUTE ILLNESS 08/11/2018 Care Plan: CHEST X-RAY 2VW FRONTAL&LATL LOINC : 49012-4 Pending 07/20/2018 Visit Diagnosis Plan: Dyspnea, unspecified Discussion: CXR- to be completed at the hospital. Will call with results and any adjustments in plan. Solumedrol 125 administered in clinic Prednisone 20 mg BID x 5 days- start tomorrow ICD-9 : 786.09 ICD-10 : R06.00 07/16/2018 Appointment: Amita Henderson [address] [place], [place] [phone] ACUTE ILLNESS 07/16/2018 Patient Education: prednisone- [employer] Coupon [phone] https://www.Epocrates.InSite Wireless/sampleExodus Payment Systems/resources/getResource/61/53q3o0ug-fu13-5fr5-v7 Completed 07/16/2018 Visit Diagnosis Plan: Acute bronchitis due to other sp ecified organisms Discussion: Kenalog 40 mg IM administered in clinic. Doxycycline called into [facility]. Take as directed. Continue nebulizer and Trelegy. Follow up if symptoms are not improving with treatment regimen. Patient states understanding of all instruction. ICD-9 : 466.0 ICD-10 : J20.8 07/13/2018 Appointment: Amita Henderson [address] [place], [place] [phone] ACUTE ILLNESS 07/13/2018 Patient Education: doxycycline hyclate- OptimizeRX Cou saritha [id number] https://www.Epocrates.InSite Wireless/samplemd/resources/getResource/61/6y385q63-5k6s-3095-3h Completed 07/13/2018 Care Plan: [place] : 49[address]-1 Pending 07/13/2018 Care Plan: CBC Pending 07/13/2018 Care Plan: A1C HPLC LOINC : 31942-2 Pending 07/13/2018 Visit Diagnosis Plan: Mixed hyperlipidemia [...] : I10 06/03/2018 Appointment: Neela Hyman WPtel: [address] [place] [address] [place] FOLLOW UP 06/03/2018 Visit Diagnosis Plan: [...] ICD-10 : J44.9 05/04/2018 Appointment: Gely Harp [address] [place] [address] ACUTE ILLNESS 05/04/2018 Visit Diagnosis Plan: Localized edema Discussion: Cont inue lasix and potassium at every other day Recheck lab and fwup in 3mos Follow Up: 3 months ICD-9 : 782.3 ICD-10 : R60.0 03/03/2018 Appointment: Neela Hyman WPtel: [address] [place] [address] FOLLOW UP 03/03/2018 Patient Education: Patient Medication Summary Completed 03/03/2018 Visit Diagnosis Plan: Localized edema Discussion: Finch ge lasix and potassium to every other day Check Chem 7 in 2 weeks and fwup ICD-9 : 782.3 ICD-10 : R60.0 02/17/2018 Appointment: Neela Hyman WPtel: [address] [place] [address] [place] FOLLOW UP 02/17/2018 Patient Education: Patient [...] R60.0 02/10/2018 Appointment: Neela Hyman WPtel: [phone] [facility] FOLLOW UP 02/10/2018 Patient Education: Patient Medication [...] L02.212 11/05/2017 Appointment: [facility] [facility] [facility] FOLLOW [facility] 11/05/2017 Patient Education: Patient Medication Summary Completed 11/05/2017 Patient Education: Patient Medication Summary Completed 11/03/2017 Care Plan: [place] : [address]-5 Pending 11/03/2017 Care Plan: LIPID PANEL LOINC : 16592-5 Pending 11/03/2017 Care Plan: CBC Pending 11/03/2017 Care Plan: A1C HPLC LOINC : 12964-5 Pending 11/03/2017 Visit Diagnosis Plan: Allergic urticaria [...] ICD-10 : L50.0 09/09/2017 Appointment: Gely Harp [address] [place] [address] ACUTE ILLNESS 09/09/2017 Patient Education: Patient Medication [...] ICD-10 : R59.1 08/07/2017 Appointment: Gely Harp [address] [place] [address] Hospital Follow Up 08/07/2017 Patient Education: Patient Medication Summary Completed 08/07/2017 Visit Diagnosis Plan: Type 2 diabetes mellitus without complications Discussion: Accuchecks daily Lab discussed Continue current meds ICD-9 : 250.00 ICD-10 : E11.9 08/04/2017 Visit Diagnosis Plan: Essential (primary) hypertension Discussion: Increase Cardizem CD to 360mg daily ICD-9 : 401.9 ICD-10 : I10 08/04/2017 Appointment: Neela Hyman WPtel: [phone] [id number] FOLLOW UP 08/04/2017 Patient Education: Patient Medication Summary Completed 08/04/2017 Patient Education: Patient Medication Summary Completed 07/31/2017 Care Plan: [place] : [address]-3 Pending 07/31/2017 Care Plan: ASSAY THYROID STIM HORMONE Pen ding 07/31/2017 Care Plan: LIPID PANEL LOINC : 44696-6 Pending 07/31/2017 Care Plan: CBC Pending 07/31/2017 Care Plan: A1C HPLC LOINC : 40732-4 Pending 07/31/2017 Patient Education: Patient Medication Summary Completed 06/19/2017 Patient Education: Patient Medication Summary Completed 06/09/2017 Care Plan: CT SOFT TISSUE NEC[place] : 59632-2 Pending 06/09/2017 Visit Diagnosis Plan: Acute sialoadenitis [...] ICD-10 : B02.9 06/04/2017 Appointment: Gely Harp [address] [place], [place] [address] ACUTE ILLNESS 06/04/2017 Patient Education: Patient Medication [...] ICD-10 : B02.9 06/02/2017 Appointment: Gely Harp [address] [place] [address] ACUTE ILLNESS 06/02/2017 Patient Education: Patient Medication [...] E11.9 05/05/2017 Appointment: Neela Hyman WPtel: [phone] FOLLOW UP 05/05/2017 Patient Education: Patient Medication Summary Completed 05/05/2017 Patient Education: Patient Medication Summary Completed 05/01/2017 Care Plan: A1C HPLC [facility] : 03617-3 Pending 05/01/2017 Visit Diagnosis Plan: Chronic obstructiv [...] ICD-10 : H61.23 04/10/2017 Appointment: Gely Harp [address] [place], [place] [phone] ACUTE ILLNESS 04/10/2017 Patient Education: Patient Medication Summary Completed 04/10/2017 Appointment: Neela Hyman WPtel: [address] [place], [place] [address] [place] INJECTION 03/28/2017 Patient Education: Patient Medication [...] : J44.9 02/03/2017 Appointment: Neela Hyman WPtel: [address] [place] [address] FOLLOW UP 02/03/2017 Patient Education: Patient Medication Summary Completed 02/03/2017 Patient Education: Patient Medication Summary Completed 01/30/2017 Care Plan: [place] : [address]65[address]-8 Pending 01/30/2017 Care Plan: LIPID PANEL LOINC : 56980-5 Pending 01/30/2017 Care Plan: CBC Pending 01/30/2017 Care Plan: A1C HPLC LOINC : 79430-8 Pending 01/30/2017 Care Plan: ASSAY OF PSA [...] : E11.65 10/30/2016 Appointment: Neela Hyman WPtel: [facility] [place] [phone] [place] 10/29 lm ~sl 10/30 confirmed~sl FOLLOW UP 11/2016 Patient Education: Patient Medication Summary Completed 10/30/2016 Patient Education: Patient Medication Summary Completed 10/24/2016 Visit Diagnosis Plan: Acute bronchitis, unspecified Di scussion: Patient sounds and looks much improved Continue current regimen Keep appt with Dr Levi for Friday Follow up PRN ICD-9 : 466.0 ICD-10 : J20.9 08/30/2016 Appointment: Sammi [facility]ajera [facility] [facility] 08/29 rang and rang rang [...] ICD-10 : J20.9 08/27/2016 Appointment: Sammi Najera [address] [place], [place] [phone] FOLLOW UP 08/27/2016 Patient Education: Patient Medication Summary Completed 08/27/2016 Care Plan: Referral Order SNOMED-CT : 30 [id number] Pending 08/27/2016 Visit Diagnosis Plan: Type 2 [...] : I10 07/02/2016 Appointment: Neela Hyman WPtel: [address] [place] [address] 07/01 rang and rang`sl FOLLOW UP 7 Patient Education: Patient Medication Summary Completed 07/02/2016 Patient Education: Patient Medication Summary Completed 06/27/2016 Care Plan: LIPID PANEL LOINC : 35572-3 Pending 06/27/2016 Care Plan: COMPREH[place] : 79787-2 Pending 06/27/2016 Care Plan: A1C HPLC LOINC : 14667-3 Pending 06/27/2016 Visit Diagnosis Plan: Acute bronchitis, [...] 466.0 ICD-10 : J20.9 06/14/2016 Appointment: Sammi Najear [address] [place], [place] [phone] FOLLOW UP 06/14/2016 Patient Education: Patient Medication [...] ICD-10 : J20.9 06/13/2016 Appointment: Sammi Najera [address] [place], [place] [address] ACUTE ILLNESS 06/13/2016 Patient Education: Patient Medication Summary Completed 06/13/2016 Care Plan: CHEST X-RAY 2VW FRONTAL&LATL LOINC : 18497-2 Pending 06/13/2016 Visit Plan: Increase metoprolol to 100mg po BID BP readings and BP check in 1month 05/14/2016 Appointment: Neela Hyman WPtel: [address] [place], [place] [phone] 12/19 rang and rang`sl FOLLOW UP 6 Patient Education: Patient Medication Summary Completed 05/14/2016 Visit Plan: Increase metoprolol to 50mg BID BP check in 1 week f/u BP appt 2 weeks consider musculoskeletal if pain returns 04/29/2016 Appointment: Neela Hyman WPtel: [address] [place], [place] [phone] 04/25 confimred~sl FOLLOW UP 04/29/2016 Patient Education: Patient Medication Summary Completed 04/29/2016 Visit Plan: Stat CT scan of abdomen/pelv is to look for stone Hydrate and use tramadol prn Increase metoprolol to 25mg po BID Will see urology pending CT scan results 04/22/2016 Appointment: Neela Hyman WPtel: [address] [place], [place] [phone] 04/17 confirmed-sp ACUTE ILLNESS 04/22/2016 Patient Education: [...] flu shot 04/01/2016 Appointment: Neela Hyman WPtel: [address] [place], [place] [phone] FOLLOW UP 04/01/2016 Patient Education: Patient Medication Summary Completed 04/01/2016 Patient Education: [facility] - Saving AutoInj - 18-64 - Dynamic Heber l ID Completed 04/01/2016 Patient Education: Patient Medication Summary Completed 03/28/2016 Care Plan: A1C HPLC LOINC : 63172-2 Pending 03/28/2016 Care Plan: [place] : [address]-7 Pending 03/28/2016 Visit Plan: Lab discussed Continue curre nt meds Accuchecks daily 11/30/2015 Appointment: Neela Hyman WPtel: [address] [place] [address] 7/6 confirmed~sl FOLLOW UP 11/30/2015 Patient Education: Patient Medication Summary Completed 11/30/2015 Appointment: Neela Hyman WPtel: [address] [place], [place] [phone] [place] RESCHEDULED 11/28/2015 Patient Education: Patient Medication Summary Completed 11/23/2015 Care Plan: COM[place] : [address]-3 Pending 11/23/2015 Care Plan: LIPID PANEL LOINC : 75683-5 Pending 11/23/2015 Care Plan: CBC Pending 11/23/2015 Care Plan: A1C HPLC LOINC : 52456-9 Pending 11/23/2015 Visit Plan: Lab discussed Acccarolyn richard munguia Continue current meds Cymbalta helping with feet and mood 08/29/2015 Appointment: Neela Hyman WPtel: [address] [place], [place] [phone] FOLLOW UP 08/29/2015 Patient Education: Patient Medication Summary Completed 08/29/2015 Visit Plan: Check CXR Stop all steroids and steroid inhalers Use SVN with but change to duoneb Add singulair for allergy etiology Change fluoxetine to cymbalta 60mg daily Viagra samples given to try prn--warned of no nitrates 08/14/2015 Appointment: Neela Hyman WPtel: [address] [place] [address] lm to reschedule ~sl 07/27 lm ~sl 08/09 busy 08/10 conf irmed-sp Annual Well Visit 08/14/2015 Patient Education: Patient Medication Summary Completed 08/14/2015 Care Plan: CHEST X-RAY 2VW FRONTAL&LATL LOINC : 41586-3 Ordered 08/14/2015 Visit Plan: Decadron 8mg given [...] improving as expected 08/09/2015 Appointment: Sammi Najera [address] [place] [address] ER Follow UP 08/09/2015 Patient Education: Patient Medication Summary Completed 08/09/2015 Patient Education: [facility] - Saving AutoInj - 18-64 - Dynamic [...] with it 05/22/2015 Appointment: Neela Hyman WPtel: [address] [place] [address] 05/17 confirmed~sl FOLLOW UP 05/22/2015 Patient Education: Patient Medication Summary Completed 05/22/2015 Patient Education: Patient Medication Summary Completed 05/15/2015 Visit Plan: Obtain EMGs done at [facility] from when fractured left arm Lab discussed Accuchecks daily 02/13/2015 Appointment: Neela Hyman WPtel: [address] [place], [place] [phone] 02/10 confrimed FOLLOW UP 02/13/2015 Patient Education: Patient Medication Summary Completed 02/13/2015 Patient Education: Patient Medication Summary Completed 02/09/2015 Visit Plan: discussed lab add fenofibrat e 134mg po daily recheck fasting lab in 3 months, CBC, CMP, Lipids, hgb AIC 11/07/2014 Appointment: Neela Hyman WPtel: [address] [place], [place] [phone] 11/04 appt confirmed cn FOLLOW UP 015 Patient Education: Patient Medication Summary Completed 11/07/2014 Patient Education: Patient Medication Summary Completed 11/03/2014 Visit Plan: Continue loratadine 10mg richard ly Notify if symptoms return 10/04/2014 Appointment: Neela Hyman WPtel: [address] [place], [place] [phone] confirmed on 10/03 at 2:42pm FOLLOW UP 09/23 Patient Education: Patient Medication Summary Completed 10/04/2014 Appointment: Neela Hyman WPtel: [address] [place], [place] [id number] ACUTE ILLNESS 09/28/2014 Appointment: Loren Garza WPtel: [address] [place], [place] [phone] FOLLOW UP 09/22/2014 Patient Education: Patient Medication Summary Completed 09/22/2014 Appointment: Lorne Garza WPtel: [address] [place], [place] [id number] ACUTE ILLNESS 09/21/2014 Patient Education: Patient Medication Summary Completed 09/21/2014 Patient Education: [facility] - Saving AutoInj - 18+ - Dynamic Portal ID Completed 09/21/2014 Visit Plan: Lab discussed Continue daily accuchecks Continue current meds 06/28/2014 Appointment: Neela Hyman WPtel: [address] [place], [place] [phone] FOLLOW UP 06/28/2014 Patient Education: Patient Medication Summary Completed 06/28/2014 Patient Education: Patient Medication Summary Completed 06/23/2014 Appointment: Sarah Sunshine WPtel: [address] [place], [place] [phone] ACUTE ILLNESS 06/10/2014 Patient Education: Patient Medication Summary Completed 06/10/2014 Patient Education: [facility] - Saving AutoInj - 18+ - Dynamic Portal ID Completed 06/10/2014 Visit Plan: Lab discussed Continue daily accuchecks Continue current meds 03/29/2014 Appointment: Neela Hyman WPtel: [address] [place], [place] [phone] [place] FOLLOW UP 03/29/2014 Patient Education: Patient Medication Summary Completed 03/29/2014 Patient Education: Patient Medication Summary Completed 03/23/2014 Visit Plan: Lab discussed Continue curre nt meds and accuchecks See surgery for removal of hand lesion 11/30/2013 Appointment: Nelea Hyman WPtel: [address] [place] [address] 11/29 no answer FOLLOW UP 11/30/2013 Patient Education: Patient Medication Summary Completed 11/30/2013 Visit Plan: Lab discussed Continue curre nt meds 08/03/2013 Appointment: Neela Hyman WPtel: [address] [place] [address] FOLLOW UP 08/03/2013 Patient Education: Patient Medication Summary Completed 08/03/2013 Visit Plan: Lab Discussed Will continue current meds and pt will get back on diet/exercise Check lab in 4mos and fwup 04/06/2013 Appointment: Neela Hyman WPtel: [address] [place] [address] FOLLOW UP 04/06/2013 Patient Education: Patient Medication Summary Completed 04/06/2013 Visit Plan: Lab discussed Continue daily accuchecks 12/01/2012 Appointment: Neela Hyman WPtel: [address] [place] [address] 11/30 no answer FOLLOW UP 12/01/2012 Patient Education: Patient Medication Summary Completed 12/01/2012 Visit Plan: Continue current meds and da russell accuchecks Lab discussed 08/04/2012 Appointment: Neela Hyman WPtel: [address] [place], [place] [phone] FOLLOW UP 08/04/2012 Patient Education: Patient Medication Summary Completed 08/04/2012 Appointment: Neela Hyman WPtel: [address] [place] [address] [place] UA 06/01/2012 Patient Education: Patient Medication Summary Completed 06/01/2012 Appointment: Janet Jean Baptiste WPtel: [address] [place] [address] [place] FOLLOW UP 05/29/2012 Patient Education: Patient Medication Summary Completed 05/29/2012 Visit Plan: pt states Dr. Hyman told h is to increase his Prozac dose while she was talking to her at [facility]. Discussed that pt. should not increase or decrease dosage without Dr's knowledge. Pt. will seek hearing test here in town at the hearing aid place on [address]. Discussed that ear pain is likely caused by sinus pressure. Pt. will notify if no improvement. 05/25/2012 Appointment: Janet Jean Baptiste WPtel: [address] [place], [place] [phone] ACUTE ILLNESS 05/25/2012 Patient Education: Patient Medication Summary Completed 05/25/2012 Visit Plan: Continue current meds Contin ue daily accuchecks but alternate times Increase fish oil to 3gm daily 04/07/2012 Appointment: Neela Hyman WPtel: [address] [place], [place] [phone] 04/06 FOLLOW UP 04/07/2012 Patient Education: Patient Medication Summary Completed 04/07/2012 Appointment: Janet Jean Baptiste WPtel: [address] [place] [address] ACUTE ILLNESS 12/16/2011 Patient Education: Patient Medication Summary Completed 12/16/2011 Visit Plan: Increase 12/03/2011 Appointment: Neela Hyman WPtel: [address] [place], [place] [phone] FOLLOW UP 12/03/2011 Patient Education: Patient Medication Summary Completed 12/03/2011 Visit Plan: Continue current meds Contin ue accuchecks 08/29/2011 Appointment: Neela Hyman WPtel: [address] [place], [place] [phone] FOLLOW UP 08/29/2011 Patient Education: Patient Medication Summary Completed 08/29/2011 Visit Plan: Continue current meds except restart zocor 05/30/2011 Appointment: Neela Hyman WPtel: [address] [place], [place] [phone] FOLLOW UP 05/30/2011 Patient Education: Patient Medication Summary Completed 05/30/2011 Visit Plan: Continue tennis elbow strap May go back to weight-lifing--light weigts every other day 01/29/2011 Appointment: Neela Hyman WPtel: [address] [place], [place] [phone] FOLLOW UP 01/29/2011 Patient Education: Patient Medication Summary Completed 01/29/2011 Visit Plan: Continue tennis elbow strap and anti-inflammatories 01/14/2011 Appointment: Neela Hyman WPtel: [address] [place] [address] FOLLOW UP 01/14/2011 Appointment: Janet Jean Baptiste WPtel: [address] [place] [address] NEW PATIENT 01/14/2011 Patient Education: Patient Medication Summary Completed 01/14/2011 Appointment: Neela Hyman WPtel: [address] [place] [address] FOLLOW UP 01/08/2011 Appointment: Neela Hyman WPtel: [address] [place] [address] FOLLOW UP 01/01/2011 Appointment: Neela Hyman WPtel: [address] [place] [address] UA 01/01/2011 Patient Education: Patient Medication Summary [...] given. 11/29/2010 Appointment: Janet Jean Baptiste WPtel: [address] [place] [address] ACUTE ILLNESS 11/29/2010 Patient Education: Patient Medication Summary Completed 11/29/2010 Visit Plan: Cont current meds Check CMP, Lipids, HbA1C 08/28/2010 Appointment: Neela Hyman WPtel: [address] [place] [address] FOLLOW UP 08/28/2010 Patient Education: Patient Medication Summary Completed 08/28/2010 Visit Plan: Cont current meds and accuch ecks Add Zocor 40mg q HS Check Lipids and HbA1C in 3mos 06/05/2010 Appointment: Neela Hyman WPtel: [address] [place] [address] FOLLOW UP 06/05/2010 Patient Education: Patient Medication Summary Completed 06/05/2010 Visit Plan: Check Lipids and HbA1C 02/05/2010 Appointment: Neela Hyman WPtel: [address] [place] [address] FOLLOW UP 02/05/2010 Patient Education: Patient Medication Summary Completed 02/05/2010 Visit Plan: HbA1C in 3mos. Continue Accu checks BID alternating times. Check HbA1C, CMP, Lipids 10/09/2009 Appointment: Neela Hyman WPtel: [address] [place] [address] FOLLOW UP 10/09/2009 Patient Education: Patient Medication Summary Completed 10/09/2009 Visit Plan: Saline nasal flushes prn. Ty lenol/Motrin prn headache. Notify if persists/symptoms worsening. 08/22/2009 Appointment: Neela Hyman WPtel: [address] [place] [address] ACUTE ILLNESS 08/22/2009 Patient Education: Patient Medication Summary Completed 08/22/2009 Referral: Aubrey Rand WPtel: [address] [place], [place] [id number] [place] Office will verfy his insurance then they will contact patient Completed Referral: Shahbaz Brennan WPtel: [address] [facility] 201 [id number] [place] Referral Completed Referral: Ion Levi [address] [facility] C&D [id number] [place] Referral Appointment Requested Referral: Ion Levi [address] [facility] C&D [id number] [place] Referral Appointment Requested Instructions Comment . [...] with it . Obtain EMGs done at [facility] from when fractured left arm Lab discussed [...] while she was talking to her at [facility]. Discussed that pt. should not increase or decrease dosage without Dr's knowledge. Pt. will seek hearing test here in town at the hearing aid place on [address]. Discussed that ear pain is likely caused [...]
--- OUTSIDE RECORDS SUMMARY | 2019-12-09 08:59 | XMS REPORT | CCD ---
Author Author Michael Hyman D.O. Organization [facility] Address [address] [place] [address] Phone Care Team Providers Care Potato Picker Name Role Phone Neela Hyman D.O., PP Unavailable CCM Unavailable Summary Purpose Interface Exchange Insurance Providers Payer name Policy type / Coverage type Covered libertarian ID Effective Begin Date Effective End Date ABS FOR [employer] Commercial Insurance [id number] Unknown Family History Family History data not found Social History Social History Element Codes Description Effective Dates Marital status Unknown 05/30/[address]: 3677339 Former smoker quit 25 years ago 01/01/2011 [...] Instructions fenofibrate micronized 134 mg capsule RxNorm: 562435 1 Capsule( s) Oral QD 09/22/2019 03/20/2020 Active metformin 500 mg tablet RxNorm: 184156 2 Tablet(s) Oral two afshan es a day 09/22/2019 12/20/2019 Active Benicar 40 mg tablet RxNorm: 154122 1 Tablet(s) Oral QD 09/22/2019 Active Lasix 40 mg tablet RxNorm: 779583 1 Tablet(s) Oral QD 08/24/2019 06/2 01/2020 Active duloxetine 60 mg capsule,delayed release RxNorm: 506733 TAKE ONE CAPSULE BY MOUTH EVERY DAY 08/16/2019 02/11/2020 Active metoprolol succinate ER 100 mg tablet,extended release 24 hr RxNorm: 155079 TAKE ONE TABLET BY MOUTH TWICE A DAY 08/16/2019 05/11/2020 Active potassium chloride ER 20 mEq tablet,extended release RxNorm: 510948 1 Tablet(s) Oral two times a day 07/22/2019 10/19/2019 Active metformin 500 mg tablet RxNorm: 062463 2 Tablet(s) Oral two afshan es a day 07/13/2019 09/21/2019 Inactive Singulair 10 mg tablet RxNorm: 242104 TAKE ONE TABLET BY MOUTH EVERY EVENING 07/06/2019 01/02/2020 Active Reselected prescribe r from [facility] to [facility] Keflex 500 mg capsule RxNorm: 900676 1 Capsule(s) Oral three ti mes a day 07/06/2019 07/13/2019 Inactive Singulair 10 mg tablet RxNorm: 600521 TAKE ONE TABLET BY MOUTH EVERY EVENING 06/22/2019 07/05/2019 Inactive Reselected prescribe r from [facility]HER to [facility] Zocor 40 mg tablet RxNorm: 316716 TAKE ONE TABLET BY M OUTH EVERY NIGHT AT BEDTIME 06/21/2019 11/17/2019 Active MagOx 400 mg (241.3 mg magnesium) tablet RxNorm: 915594 1 Table t(s) Oral QD 06/21/2019 08/20/2019 Inactive diltiazem ER 360 mg capsule,24 hr,extended release RxNorm: 8 09567 TAKE ONE CAPSULE BY MOUTH AT BEDTIME -REPLACES 300MG 05/17/2019 11/12/2019 Active MagOx 400 mg (241.3 mg magnesium) tablet RxNorm: 917850 1 Table t(s) Oral QD 04/26/2019 06/20/2019 Inactive Lasix 40 mg tablet RxNorm: 549329 40 MG PO DAILY 04/12/2019 08/23/2019 Inactive Benicar 40 mg tablet RxNorm: 625039 1 Tablet(s) Oral QD 03/29/2019 Inactive potassium chloride ER 20 mEq tablet,extended release RxNorm: 330086 1 Tablet(s) Oral two times a day 03/29/2019 06/27/2019 Inactive potassium chloride ER 20 mEq tablet,extended release RxNorm: 274955 1 Tablet(s) Oral QD 03/29/2019 03/28/2019 Inactive Benicar 40 mg tablet RxNorm: 673409 1 Tablet(s) Oral QD 03/29/2019 Inactive MagOx 400 mg (241.3 mg magnesium) tablet RxNorm: 335288 1 Table t(s) Oral QD 03/29/2019 04/25/2019 Inactive metformin 500 mg tablet RxNorm: 781633 2 Tablet(s) Oral two afshan es a day 03/29/2019 07/12/2019 Inactive fenofibrate micronized 134 mg capsule RxNorm: 172198 TA KE ONE CAPSULE BY MOUTH EVERY DAY 03/05/2019 09/21/2019 Inactive duloxetine 60 mg capsule,delayed release RxNorm: 662445 1 Capsu le(s) PO QD 01/28/2019 07/26/2019 Inactive Trelegy Ellipta 100 mcg-62.5 mcg-25 mcg powder for inhalatio n RxNorm: 7022827 1 Puff(s) INH QD 01/06/2019 12/31/2019 Active 90 day supply prednisone 20 mg tablet RxNorm: 217573 1 Tablet(s) PO T ID for 3 days then 1 po BID for 3 days then 1 po daily for 3 days 01/05/2019 03/28/2019 Inacti ve metformin ER 1,000 mg tablet,extended release 24hr RxNorm: 1 993114 TAKE TWO TABLETS (1000MG) BY MOUTH TWO TIMES A DAY 12/22/2018 07/13/2019 Inacti ve Diflucan 100 mg tablet RxNorm: 993440 1 Tablet(s) PO QD 12/09/2018 Inactive prednisone 20 mg tablet RxNorm: 447143 1 Tablet(s) PO B ID for 4 days then 1 po daily for 4 days 11/24/2018 01/04/2019 Inactive albuterol sulfate 2.5 mg/3 mL (0.083 %) solution for n ebulization RxNorm: 325489 3 Milliliter(s) INH ONE VIAL VIA NEBULIZER EVERY 4 HOURS 019 07/21/2019 Inactive [AttnRPh: Saving apply/adjudicate RxGRP: SG20 RxBIN:[id number] RxPCN: ID#:[id number]] Trelegy Ellipta 100 mcg-62.5 mcg-25 mcg powder for inhalatio n RxNorm: 1486908 1 Puff(s) INH QD 10/27/2018 01/06/2019 Inactive 90 day supply diltiazem ER 360 mg capsule,24 hr,extended release RxNorm: 8 35969 TAKE ONE CAPSULE BY MOUTH AT BEDTIME -REPLACES 300MG 10/13/2018 04/10/2019 Inactive metoprolol succinate ER 100 mg tablet,extended release 24 hr RxNorm: 861408 TAKE ONE TABLET BY MOUTH TWICE A DAY 10/13/2018 07/09/2019 Inactive Trelegy Ellipta 100 mcg-62.5 mcg-25 mcg powder for inhalatio n RxNorm: 8684290 INHALE ONE PUFF ONCE DAILY 09/07/2018 10/27/2018 Inactive Levaquin 750 mg tablet RxNorm: 854404 1 Tablet(s) PO QD 09/07/2018 Inactive Levaquin 750 mg tablet RxNorm: 689196 1 Tablet(s) PO QD 09/07/2018 Inactive prednisone 20 mg tablet RxNorm: 636200 2 Tablet(s) PO QAM 08/13/2018 08/19/2018 Inactive Levaquin 500 mg tablet RxNorm: 778764 1 Tablet(s) PO QD 08/11/2018 Inactive fenofibrate micronized 134 mg capsule RxNorm: 952713 TA KE ONE CAPSULE BY MOUTH EVERY DAY 08/10/2018 02/05/2019 Inactive prednisone 20 mg tablet RxNorm: 999723 1 Tablet(s) PO BID 07/16/2018 07/20/2018 Inactive doxycycline hyclate 100 mg capsule RxNorm: 2727657 1 Capsule(s) PO BID 07/13/2018 07/22/2018 Inactive duloxetine 60 mg capsule,delayed release RxNorm: 582769 TAKE ONE CAPSULE BY MOUTH ONCE A DAY 07/08/2018 01/28/2019 Inactive Lasix 40 mg tablet RxNorm: 520667 1 TABLET(S) PO QAM 06/08/201809/05 Inactive potassium chloride ER 20 mEq tablet,extended release(p art/cryst) RxNorm: 3252186 1 TABLET(S) PO QD 06/08/2018 09/05/2018 Inactive metformin ER 1,000 mg tablet,extended release 24hr RxNorm: 1 839997 TAKE TWO TABLETS (1000MG) BY MOUTH TWO TIMES A DAY 06/01/2018 11/27/2018 Inacti ve Benicar HCT 40 mg-25 mg tablet RxNorm: 837683 TAKE ONE TABLET BY MOUTH ONCE DAILY 05/11/2018 03/28/2019 Inactive Zocor 40 mg tablet RxNorm: 202291 TAKE ONE TABLET BY M OUTH EVERY NIGHT AT BEDTIME 05/11/2018 06/20/2019 Inactive Trelegy Ellipta 100 mcg-62.5 mcg-25 mcg powder for inhalatio n RxNorm: 7128915 1 PUFF(S) INH QD 04/06/2018 07/04/2018 Inactive diltiazem ER 360 mg capsule,24 hr,extended release RxNorm: 8 65075 1 Capsule(s) PO QHS replaces 300mg dose 03/30/2018 09/25/2018 Inactive Trelegy Ellipta 100 mcg-62.5 mcg-25 mcg powder for inhalatio n RxNorm: 9598704 1 Puff(s) INH QD 02/24/2018 02/23/2018 Inactive Trelegy Ellipta 100 mcg-62.5 mcg-25 mcg powder for inhalatio n RxNorm: 5025611 1 Puff(s) INH QD 02/24/2018 02/23/2018 Inactive Trelegy Ellipta 100 mcg-62.5 mcg-25 mcg powder for inhalatio n RxNorm: 9515252 1 Puff(s) INH QD 02/24/2018 04/05/2018 Inactive Lasix 40 mg tablet RxNorm: 420205 1 Tablet(s) PO QAM 02/10/201803/11 Inactive potassium chloride ER 20 mEq tablet,extended release(p art/cryst) RxNorm: 7191109 1 Tablet(s) PO QD 02/10/2018 03/11/2018 Inactive fenofibrate micronized 134 mg capsule RxNorm: 924818 1 Capsule( s) PO QD 01/30/2018 07/28/2018 Inactive metoprolol succinate ER 100 mg tablet,extended release 24 hr RxNorm: 199822 TAKE ONE TABLET BY MOUTH TWICE A DAY 12/30/2017 09/25/2018 Inactive metformin ER 1,000 mg tablet,extended release 24hr RxNorm: 1 469493 1 Tablet(s) PO BID 11/17/2017 05/15/2018 Inactive [SAVINGS FOR NON -COVERED DRUGS -- BIN:445414, PCN: ASPROD1, Group: XXXXX, ID# [id number], Questions: . THIS IS NOT INSURANCE.] Benicar HCT 40 mg-25 mg tablet RxNorm: 639309 1 Tablet(s) PO QD 05/10/2018 Inactive [SAVINGS FOR NON-COVERED JESU GS -- BIN:716192, PCN: ASPROD1, Group: XXXXX, ID# [id number], Questions: . THIS IS NOT INSURANCE.] Bactroban 2 % topical cream RxNorm: 008879 Application TOP BID 10/2409/02/2018 Inactive clindamycin HCl 300 mg capsule RxNorm: 383332 2 Capsule(s) PO TID 0 11/05/2017 11/18/2017 Inactive duloxetine 60 mg capsule,delayed release RxNorm: 152273 Capsule(s) TAKE ONE CAPSULE BY MOUTH ONCE DAILY 09/24/2017 09/23/2017 Inactive triamcinolone acetonide 0.1 % topical ointment RxNorm: 2048867 1 TOP BID 09/09/2017 11/04/2017 Inactive Bactrim DS 800 mg-160 mg tablet RxNorm: 639265 1 Tablet(s) PO BID 0 08/07/2017 08/13/2017 Inactive metronidazole 500 mg tablet RxNorm: 448336 1 Tablet(s) PO BID 08/0708/13/2017 Inactive diltiazem ER 360 mg capsule,24 hr,extended release RxNorm: 8 26498 1 Capsule(s) PO QHS replaces 300mg dose 08/04/2017 01/30/2018 Inactive fenofibrate micronized 134 mg capsule RxNorm: 430105 1 Capsule( s) PO QD 07/21/2017 01/30/2018 Inactive Zocor 40 mg tablet RxNorm: 592128 1 Tablet(s) PO QHS 07/21/201705/10 Inactive GB duloxetine 60 mg capsule,delayed release RxNorm: 093551 Capsule(s) TAKE ONE CAPSULE BY MOUTH ONCE DAILY 06/24/2017 09/24/2017 Inactive Cleocin HCl 300 mg capsule RxNorm: 360032 2 Capsule(s) PO BID 06/0206/08/2017 Inactive acyclovir 800 mg tablet RxNorm: 197713 1 Tablet(s) PO 5x day 201706/08/2017 Inactive diltiazem ER 300 mg capsule,24 hr,extended release RxNorm: 8 62213 1 Capsule(s) PO QHS replaces 240mg dose 05/05/2017 08/03/2017 Inactive ipratropium-albuterol 0.5 mg-3 mg(2.5 mg base)/3 mL ne bulization soln RxNorm: 2752102 1 Unit Dose INH Q4H as needed 05/05/2017 01/04/2019 Inactive metformin ER 1,000 mg tablet,extended release 24hr RxNorm: 1 694549 1 Tablet(s) PO BID 04/28/2017 11/17/2017 Inactive [SAVINGS FOR NON -COVERED DRUGS -- BIN:364004, PCN: ASPROD1, Group: XXXXX, ID# [id number], Questions: . THIS IS NOT INSURANCE.] diltiazem ER (XR/XT) 240 mg capsule,extended release 2 4 hr, controlled RxNorm: 894168 TAKE ONE CAPSULE BY MOUTH EVERY DAY 04/15/2017 05/04/2017 Inact avani prednisone 20 mg tablet RxNorm: 065152 1 Tablet(s) PO QD 04/10/2017 1 06/14/2016 Inactive Breo Ellipta 200 mcg-25 mcg/dose powder for inhalation RxNor m: 2664977 1 Puff(s) INH QD 04/10/2017 02/09/2018 Inactive Breo Ellipta 200 mcg-25 mcg/dose powder for inhalation RxNor m: 0228253 1 Puff(s) INH QD 04/10/2017 04/09/2017 Inactive Levaquin 500 mg tablet RxNorm: 458638 1 Tablet(s) PO QD 04/10/2017 Inactive metoprolol succinate ER 100 mg tablet,extended release 24 hr RxNorm: 731989 TAKE ONE TABLET BY MOUTH TWICE A DAY 03/24/2017 12/18/2017 Inactive fenofibrate micronized 134 mg capsule RxNorm: 929842 1 Capsule( s) PO QD 01/16/2017 07/21/2017 Inactive Benicar HCT 40 mg-25 mg tablet RxNorm: 528426 1 Tablet(s) PO QD 11/17/2017 Inactive [SAVINGS FOR NON-COVERED JESU GS -- BIN:640811, PCN: ASPROD1, Group: XXXXX, ID# [id number], Questions: . THIS IS NOT INSURANCE.] metoprolol succinate ER 100 mg tablet,extended release 24 hr RxNorm: 187967 1 Tablet(s) PO BID 10/16/2016 03/23/2017 Inactive diltiazem ER (XR/XT) 240 mg capsule,extended release 2 4 hr, controlled RxNorm: 227190 1 Capsule(s) PO QD 10/16/2016 04/13/2017 Inactive [SAVINGS FOR NON- COVERED DRUGS -- BIN:415608, PCN: ASPROD1, Group: XXXXX, ID# [id number], Questions: . THIS IS NOT INSURANCE.] metformin ER 1,000 mg tablet,extended release 24hr RxNorm: 8 33379 1 Tablet(s) PO BID 10/16/2016 04/28/2017 Inactive [SAVINGS FOR NON -COVERED DRUGS -- BIN:942448, PCN: ASPROD1, Group: XXXXX, ID# [id number], Questions: . THIS IS NOT INSURANCE.] Zocor 40 mg tablet RxNorm: 964159 1 Tablet(s) PO QHS 10/16/201607/21 Inactive GB Singulair 10 mg tablet RxNorm: 678406 Tablet(s) 1 TABLET(S) PO QHS 08/27/2016 09/02/2018 Inactive prednisone 20 mg tablet RxNorm: 881005 1 Tablet(s) PO QD 08/27/2016 0 08/31/2016 Inactive ipratropium-albuterol 0.5 mg-3 mg(2.5 mg base)/3 mL ne bulization soln RxNorm: 2508821 1 Unit Dose INH Q4H as needed 08/27/2016 05/04/2017 Inactive metoprolol succinate ER 100 mg tablet,extended release 24 hr RxNorm: 069812 TAKE ONE TABLET BY MOUTH TWICE A DAY 08/05/2016 10/16/2016 Inactive duloxetine 60 mg capsule,delayed release RxNorm: 307359 TAKE ONE CAPSULE BY MOUTH ONCE DAILY 08/05/2016 06/24/2017 Inactive prednisone 20 mg tablet RxNorm: 219749 1 Tablet(s) PO QD 06/14/2016 0 06/18/2016 Inactive ipratropium-albuterol 0.5 mg-3 mg(2.5 mg base)/3 mL ne bulization soln RxNorm: 6927723 1 Unit Dose INH Q4H as needed 06/13/2016 08/26/2016 Inactive Levaquin 500 mg tablet RxNorm: 103170 1 Tablet(s) PO QD 06/13/2016 Inactive metoprolol succinate ER 100 mg tablet,extended release 24 hr RxNorm: 482846 1 Tablet(s) PO BID replaces 50mg dose 05/14/2016 07/12/2016 Inactive metoprolol succinate ER 50 mg tablet,extended release 24 hr RxNorm: 596004 1 Tablet(s) PO BID 04/29/2016 05/13/2016 Inactive prednisone 20 mg tablet RxNorm: 680300 1 Tablet(s) PO BID 04/22/2016 04/21/2016 Inactive prednisone 20 mg tablet RxNorm: 613830 1 Tablet(s) PO BID 04/22/2016 04/28/2016 Inactive Singulair 10 mg tablet RxNorm: 942839 Tablet(s) 1 TABLET(S) PO QHS 04/01/2016 08/26/2016 Inactive metoprolol succinate ER 25 mg tablet,extended release 24 hr RxNorm: 436712 1 Tablet(s) PO QHS for blood pressure 04/01/2016 05/13/2016 Inactive fenofibrate micronized 134 mg capsule RxNorm: 199411 TA KE ONE CAPSULE BY MOUTH DAILY 01/25/2016 01/16/2017 Inactive duloxetine 60 mg capsule,delayed release RxNorm: 502824 TAKE ONE CAPSULE BY MOUTH ONCE DAILY 01/25/2016 08/04/2016 Inactive Zocor 40 mg tablet RxNorm: 886105 TAKE ONE TABLET BY MOUTH AT B EDTIME 11/13/2015 10/16/2016 Inactive GB metformin ER 1,000 mg tablet,extended release 24hr RxNorm: 8 15997 1 Tablet(s) PO BID 10/26/2015 10/16/2016 Inactive [SAVINGS FOR NON -COVERED DRUGS -- BIN:410026, PCN: ASPROD1, Group: XXXXX, ID# [id number], Questions: . THIS IS NOT INSURANCE.] Benicar HCT 40 mg-25 mg tablet RxNorm: 099595 1 Tablet(s) PO QD 06/201511/11/2016 Inactive [SAVINGS FOR NON-COVERED JESU GS -- BIN:835387, PCN: ASPROD1, Group: XXXXX, ID# [id number], Questions: . THIS IS NOT INSURANCE.] diltiazem ER (XR/XT) 240 mg capsule,extended release,control led RxNorm: 809364 1 Capsule(s) PO QD 10/26/2015 10/15/2016 Inactive [SAVINGS FOR NO N-COVERED DRUGS -- BIN:972417, PCN: ASPROD1, Group: XXXXX, ID# [id number], Questions: . THIS IS NOT INSURANCE.] Singulair 10 mg tablet RxNorm: 395247 1 TABLET(S) PO QHS 09/18/2015 1 05/31/2015 Inactive Viagra 100 mg tablet RxNorm: 394064 1 Tablet(s) PO as needed 201511/23/2018 Inactive Singulair 10 mg tablet RxNorm: 612154 1 Tablet(s) PO QHS 08/16/2015 0 08/15/2015 Inactive Singulair 10 mg tablet RxNorm: 057895 1 Tablet(s) PO QHS 08/16/2015 0 09/14/2015 Inactive duloxetine 60 mg capsule,delayed release RxNorm: 537532 1 Capsule(s) PO QD replaces fluoxetine 08/14/2015 01/24/2016 Inactive ipratropium-albuterol 0.5 mg-3 mg(2.5 mg base)/3 mL ne bulization soln RxNorm: 0308190 1 Unit Dose INH Q4H as needed 08/14/2015 06/12/2016 Inactive prednisone 20 mg tablet RxNorm: 041666 Take 3 tabs PO o nce daily x 3 days, then 2 tabs PO once daily x 3 days and then 1 tab PO once daily x 3 days 08/09/2015 08/13/2015 Inactive Symbicort 160 mcg-4.5 mcg/actuation HFA aerosol inhaler RxNo rm: 5912014 2 Puff(s) INH BID 08/09/2015 08/13/2015 Inactive Zocor 40 mg tablet RxNorm: 599845 1 Tablet(s) PO QHS 05/23/201511/11 Inactive [AttnRPh: Saving apply/adjudicate RxGRP: SG20 RxBIN:[id number] RxPCN: ID#:[id number]] Benicar HCT 40 mg-25 mg tablet RxNorm: 576518 1 Tablet(s) PO QD 10/26/2015 Inactive [SAVINGS FOR NON-COVERED JESU GS -- BIN:174653, PCN: ASPROD1, Group: XXXXX, ID# [id number], Questions: . THIS IS NOT INSURANCE.] diltiazem ER (XR/XT) 240 mg capsule,extended release,control led RxNorm: 272873 1 Capsule(s) PO QD 04/24/2015 10/20/2015 Inactive [SAVINGS FOR NO N-COVERED DRUGS -- BIN:068517, PCN: ASPROD1, Group: XXXXX, ID# XXXXXXX, Questions: . THIS IS NOT INSURANCE.] fluoxetine 40 mg capsule RxNorm: 576767 1 Capsule(s) PO QD 04/24/20 15 08/13/2015 Inactive [SAVINGS FOR NON-COVERED JESU GS -- BIN:077423, PCN: ASPROD1, Group: XXXXX, ID# [id number], Questions: . THIS IS NOT INSURANCE.] Zocor 40 mg tablet RxNorm: 398661 TABLET(S) 1 TABLET(S) PO QHS 01/2505/23/2015 Inactive [AttnRPh: Saving apply/adjud icate RxGRP:SG20 RxBIN:[id number] RxPCN:HT ID#:[id number]] metformin ER 1,000 mg tablet,extended release 24hr RxNorm: 8 63042 1 TABLET(S) PO BID 01/29/2015 10/26/2015 Inactive [SAVINGS FOR NON -COVERED DRUGS -- BIN:293238, PCN: ASPROD1, Group: XXXXX, ID# XXXXXXX, Questions: . THIS IS NOT INSURANCE.] fenofibrate micronized 134 mg capsule RxNorm: 200071 1 CAPSULE( S) PO QD 01/23/2015 01/17/2016 Inactive fenofibrate micronized 134 mg capsule RxNorm: 782322 1 Capsule( s) PO QD 11/07/2014 01/22/2015 Inactive diltiazem ER (XR/XT) 240 mg capsule,extended release,control led RxNorm: 237283 1 Capsule(s) PO QD 10/24/2014 04/24/2015 Inactive [SAVINGS FOR NO N-COVERED DRUGS -- BIN:491635, PCN: ASPROD1, Group: XXXXX, ID# XXXXXXX, Questions: . THIS IS NOT INSURANCE.] Benicar HCT 40 mg-25 mg tablet RxNorm: 639394 1 Tablet(s) PO QD 05/201404/24/2015 Inactive [SAVINGS FOR NON-COVERED JESU GS -- BIN:516330, PCN: ASPROD1, Group: XXXXX, ID# XXXXXXX, Questions: . THIS IS NOT INSURANCE.] fluoxetine 40 mg capsule RxNorm: 027173 1 Capsule(s) PO QD 10/25/1904/24/2015 Inactive [SAVINGS FOR NON-COVERED JESU GS -- BIN:902999, PCN: ASPROD1, Group: XXXXX, ID# XXXXXXX, Questions: . THIS IS NOT INSURANCE.] azithromycin 500 mg tablet RxNorm: 330993 1 Tablet(s) PO QD 015 09/27/2014 Inactive [SAVINGS FOR NON-COVERED JESU GS -- BIN:609550, PCN: ASPROD1, Group: XXXXX, ID# XXXXXXX, Questions: . THIS IS NOT INSURANCE.] albuterol sulfate 2.5 mg/3 mL (0.083 %) solution for n ebulization RxNorm: 161330 3 Milliliter(s) INH ONE VIAL VIA NEBULIZER EVERY 4 HOURS 015 11/19/2014 Inactive [AttnRPh: Saving apply/adjudicate RxGRP: SG20 RxBIN:[id number] RxPCN: ID#:[id number]] Zocor 40 mg tablet RxNorm: 372269 TABLET(S) 1 TABLET(S ) PO QHS 1 TABLET(S) PO QHS 09/04/2014 02/21/2015 Inactive [AttnRPh: Saving apply/adjudicate RxGRP:SG20 RxBIN:[id number] RxPCN: ID#:[id number]] metformin ER 1,000 mg tablet,extended release 24hr RxNorm: 8 27174 1 Tablet(s) PO BID 08/04/2014 01/28/2015 Inactive [SAVINGS FOR NON -COVERED DRUGS -- BIN:780368, PCN: ASPROD1, Group: XXXXX, ID# XXXXXXX, Questions: . THIS IS NOT INSURANCE.] Bromfed DM 2 mg-30 mg-10 mg/5 mL syrup RxNorm: 7355346 1 -2 Teaspoon(s) PO Q4H as needed for cough 06/10/2014 06/19/2014 Inactive [SAVINGS FOR UN INSURED PATIENTS -- BIN:667034, PCN: ASPROD1, Group: AME08, ID# [id number], Process claim through [employer], for questions: . THIS IS NOT INSURANCE.] Augmentin 875 mg-125 mg tablet RxNorm: 180129 1 Tablet(s) PO Q12H 0 06/10/2014 06/19/2014 Inactive [AttnRPh: Saving apply/adjud icate RxGRP:SG20 RxBIN:[id number] RxPCN:HT ID#:[id number]] Zocor 40 mg tablet RxNorm: 828545 Tablet(s) 1 TABLET(S ) PO QHS 1 TABLET(S) PO QHS 05/25/2014 08/22/2014 Inactive [AttnRPh: Saving apply/adjudicate RxGRP:SG20 RxBIN:[id number] RxPCN:HT ID#:[id number]] fluoxetine 40 mg capsule RxNorm: 543910 1 Capsule(s) PO QD 04/29/20 14 10/24/2014 Inactive [AttnRPh: Saving apply/adjud icate RxGRP:SG20 RxBIN:[id number] RxPCN:HT ID#:[id number]] diltiazem ER (XR/XT) 240 mg capsule,extended release,control led RxNorm: 763219 1 Capsule(s) PO QD 04/29/2014 10/24/2014 Inactive [AttnRPh: Shahzad rubio apply/adjudicate RxGRP:SG20 RxBIN:[id number] RxPCN:HT ID#:[id number]] Benicar HCT 40 mg-25 mg tablet RxNorm: 716729 1 Tablet(s) PO QD 09/201310/24/2014 Inactive [AttnRPh: Saving apply/adjud icate RxGRP:SG20 RxBIN:[id number] RxPCN:HT ID#:[id number]] Zocor 40 mg tablet RxNorm: 503965 1 TABLET(S) PO QHS 1 TABLET(S ) PO QHS 03/07/2014 05/25/2014 Inactive [AttnRPh: Saving chelsie ly/adjudicate RxGRP:SG20 RxBIN:[id number] RxPCN:HT ID#:[id number]] Zocor 40 mg tablet RxNorm: 887927 1 Tablet(s) PO QHS 1 TABLET(S ) PO QHS 12/06/2013 03/05/2014 Inactive [AttnRPh: Saving chelsie ly/adjudicate RxGRP:SG20 RxBIN:[id number] RxPCN:HT ID#:[id number]] diltiazem ER (XR/XT) 240 mg capsule,extended release,control led RxNorm: 975077 1 Capsule(s) PO QD 10/25/2013 04/22/2014 Inactive [AttnRPh: Leonelin g apply/adjudicate RxGRP:SG20 RxBIN:[id number] RxPCN:HT ID#:[id number]] fluoxetine 40 mg capsule RxNorm: 841770 1 Capsule(s) PO QD 10/26/19 14 04/22/2014 Inactive [AttnRPh: Saving apply/adjud icate RxGRP:SG20 RxBIN:[id number] RxPCN:HT ID#:[id number]] Zocor 40 mg tablet RxNorm: 075590 1 Tablet(s) PO QHS 1 TABLET(S ) PO QHS 09/13/2013 12/06/2013 Inactive metformin ER 1,000 mg tablet,extended release 24hr RxNorm: 8 20954 Tablet(s) PO TAKE 1 TABLET BY MOUTH TWICE DAILY (REPLACES 500MG DOSE) 07/26/201303/2015 Inactive diltiazem ER (XR/XT) 240 mg capsule,extended release,control led RxNorm: 492776 1 Capsule(s) PO QD 05/03/2013 10/25/2013 Inactive fluoxetine 40 mg capsule RxNorm: 472494 1 Capsule(s) PO QD 05/03/20 13 10/25/2013 Inactive Benicar HCT 40 mg-25 mg tablet RxNorm: 263858 1 Tablet(s) PO QD 01/201304/29/2014 Inactive Zocor 40 mg tablet RxNorm: 275089 1 Tablet(s) PO QHS 12/10/201209/13 Inactive fluoxetine 40 mg capsule RxNorm: 546628 1 Capsule(s) PO QD 11/10/19 13 05/03/2013 Inactive diltiazem ER (XR/XT) 240 mg capsule,extended release,control led RxNorm: 481224 1 Capsule(s) PO QD 11/09/2012 05/03/2013 Inactive Benicar HCT 40 mg-25 mg tablet RxNorm: 796847 1 Tablet(s) PO QD 05/03/2013 Inactive metformin ER 1,000 mg tablet,extended release 24hr RxNorm: 8 71035 Tablet(s) PO TAKE 1 TABLET BY MOUTH TWICE DAILY (REPLACES 500MG DOSE) 08/05/201206/2013 Inactive Zocor 40 mg tablet RxNorm: 832114 1 Tablet(s) PO QHS 06/15/201212/09 Inactive fluoxetine 40 mg capsule RxNorm: 475053 1 Capsule(s) PO QD 05/15/20 12 11/08/2012 Inactive Neurontin 600 mg Tab RxNorm: 052038 1 Tablet(s) PO QHS 12/03/2011 Inactive metformin ER 1,000 mg tablet,extended release 24hr RxNorm: 8 68220 1 Tablet(s) PO BID replaces 500mg dose 12/03/2011 07/26/2013 Inactive Zocor 40 mg tablet RxNorm: 042856 1 Tablet(s) PO QHS 12/03/201106/15 Inactive fluoxetine 20 mg capsule RxNorm: 547761 1 Capsule(s) PO QD 12/03/19 12 05/24/2012 Inactive diltiazem ER (XR/XT) 240 mg capsule,extended release,control led RxNorm: 626075 1 Capsule(s) PO QD 11/15/2011 11/09/2012 Inactive Benicar HCT 40 mg-25 mg tablet RxNorm: 740176 1 Tablet(s) PO QD 02/16/2012 Inactive metformin ER 500 mg 24 hr Tab RxNorm: 384909 1 Tablet(s) PO BID 12/02/2011 Inactive Zocor 40 mg Tab RxNorm: 930057 1 Tablet(s) PO QHS 05/30/2011 11/25/19 12 Inactive fluoxetine 20 mg Cap RxNorm: 138681 1 Capsule(s) PO QD 05/28/2011 Inactive Neurontin 600 mg Tab RxNorm: 536780 1 Tablet(s) PO QHS 05/28/2011 Inactive Neurontin 600 mg Tab RxNorm: 566358 1 Tablet(s) PO QHS 02/22/201106/2011 Inactive Neurontin 600 mg Tab RxNorm: 013209 1 Tablet(s) PO QHS 01/14/2011 Inactive Neurontin 300 mg Cap RxNorm: 333787 1 Capsule(s) PO QHS 01/14/2011 Inactive Neurontin 600 mg Tab RxNorm: 153362 1 Tablet(s) PO QHS 01/14/2011 Inactive Medrol (Vipul) 4 mg Tabs in a Dose Pack RxNorm: 037180 Tablet(s) PO 0 01/02/2011 08/28/2011 Inactive as directed fluoxetine 20 mg Cap RxNorm: 046497 1 Capsule(s) PO QD 12/10/201006/2011 Inactive Zocor 40 mg Tab RxNorm: 504949 1 Tablet(s) PO QHS 12/03/2010 05/29/19 12 Inactive Neurontin 300 mg Cap RxNorm: 618031 1 Capsule(s) PO QHS 12/03/2010 Inactive Septra DS 800 mg-160 mg Tab RxNorm: 143754 1 Tablet(s) PO BID 11/2912/08/2010 Inactive diltiazem ER (XR/XT) 240 mg Continuous Release Cap RxNorm: 8 32871 1 Capsule(s) PO QD 11/20/2010 11/15/2011 Inactive Neurontin 300 mg Cap RxNorm: 396608 1 Capsule(s) PO QHS 11/06/2010 Inactive Neurontin 300 mg Cap RxNorm: 994338 1 Capsule(s) PO QHS 11/06/2010 Inactive Celebrex 200 mg Cap RxNorm: 300563 1 Capsule(s) PO BID 10/24/2010 Inactive fluoxetine 20 mg Cap RxNorm: 732837 1 Capsule(s) PO QD 06/07/201003/2011 Inactive Zocor 40 mg Tab RxNorm: 999869 1 Tablet(s) PO QHS 06/05/2010 12/02/19 11 Inactive Benicar HCT 40 mg-25 mg Tab RxNorm: 759012 1 Tablet(s) PO QD 200908/21/2011 Inactive Diltiazem 240 mg Continuous Release Cap RxNorm: 805746 1 Capsul e(s) PO QD 11/09/2009 09/02/2018 Inactive Avelox 400 mg Tab RxNorm: 676415 1 Tablet(s) PO QD 08/22/2009 010 Inactive ProAir HFA 90 mcg/actuation aerosol inhaler RxNorm: 328621 2 Puff(s) INH Q4H as needed No Start Date Active tramadol 50 mg tablet RxNorm: 955974 1-2 Tablet(s) PO TID as ne eded for pain No Start Date Active Tylenol Arthritis 650 mg Tab RxNorm: 4257598 2 Tablet(s) PO QD No Sta rt Date Active Celebrex 200 mg Cap RxNorm: 535047 1 Capsule(s) PO BID No Start Date 08/08/2015 Inactive Medrol (Vipul) 4 mg Tabs in a Dose Pack RxNorm: 822197 Tablet(s) PO N o Start Date 01/01/2011 Inactive as directed Promethazine-DM 6.25 mg-15 mg/5 mL Syrup RxNorm: 964974 1-2 Teaspoon(s) PO Q4H prn cough No Start Date 08/28/2011 Inactive Claritin 10 mg tablet RxNorm: 003272 1 Tablet(s) PO QD No Start Date 08/08/2015 Inactive Bawdniaewt-Pzwcr-QXZ-James-[id number] Oral RxNorm: Oral No Start Da te 03/28/2019 Inactive Breo Ellipta 200 mcg-25 mcg/dose powder for inhalation RxNor m: 1163769 1 Puff(s) INH QD No Start Date 04/09/2017 Inactive metformin 500 mg Tab RxNorm: 019588 1 Tablet(s) PO QD No Start Date 0 08/17/2011 Inactive Diltiazem 240 mg Continuous Release Cap RxNorm: 858109 1 Capsul e(s) PO BID No Start Date 11/08/2009 Inactive fluoxetine 20 mg Cap RxNorm: 415125 1 Capsule(s) PO QD No Start Date 06/07/2010 Inactive Multivitamin & Mineral Formula Oral RxNorm: Oral No Start Da te 03/28/2019 Inactive Medrol (Vipul) 4 mg tablets in a dose pack RxNorm: 941553 Tablet(s) PO as directed No Start Date 05/28/2012 Inactive Fish Oil 1,000 mg Cap RxNorm: 1 Capsule(s) PO QD No Start Date 07/2018 Inactive Nexium 40 mg Cap RxNorm: 276155 1 Capsule(s) PO QD No Start Date 07/24 Inactive fluticasone 50 mcg/actuation nasal spray,suspension RxNorm: 1173618 2 [place] NASAL QD to each nostril No Start Date 08/03/2017 Inactive Viagra 100 mg tablet RxNorm: 023732 1 Tablet(s) PO as needed No Sta rt Date 09/17/2015 Inactive prednisone 20 mg tablet RxNorm: 689062 1 Tablet(s) PO B ID for 4 days then 1 po daily for 4 days No Start Date 11/23/2018 Inactive Benicar HCT 40 mg-25 mg Tab RxNorm: 619101 1 Tablet(s) PO QD No Sta rt [...] Date S ervice Location MICROALBUMIN URINE RANDOM 57785 MICRL MG/L 5.8 MG/L 03/2011 Unknown MICROALBUMIN URINE RANDOM 86823 XM.ALB/CRE 5.2 MG/GCR Unknown MICROALBUMIN URINE RANDOM 21323 CREAT MG/D 111 MG/DL 03/2011 Unknown MICROALBUMIN URINE RANDOM 72273 CRE/100 1.11 G/L 12/24 Unknown Procedures Procedure Codes Date FLU VACC PRSV FREE INC ANTIG 65 AND OLDER CPT-4: 78012 03/04/2019 ADMIN PNEUMOCOCCAL VACCINE CPT-4: G0009 03/04/2019 ADMIN INFLUENZA VIRUS VAC CPT-4: G0008 03/04/2019 FLU VACC PRSV FREE INC ANTIG 65 AND OLDER CPT-4: 17557 03/04/2019 PNEUMOCOCCAL VACC 23 [facility] IM CPT-4: 91938 03/04/2019 THER/PROPH/DIAG INJ SC/IM CPT-4: 90531 08/11/2018 TRIAMCINOLONE ACET INJ NOS CPT-4: J3301 08/11/2018 DEXAMETHASONE SODIUM PHOS CPT-4: J1100 08/11/2018 THER/PROPH/DIAG INJ SC/IM CPT-4: 50324 07/16/2018 METHYLPREDNISOLONE INJECTION CPT-4: J2930 07/16/2018 INFLUENZA ASSAY W/OPTIC CPT-4: 30763 07/16/2018 THER/PROPH/DIAG INJ SC/IM CPT-4: 14207 07/13/2018 TRIAMCINOLONE ACET INJ NOS CPT-4: J3301 07/13/2018 THER/PROPH/DIAG INJ SC/IM CPT-4: 23314 05/04/2018 METHYLPREDNISOLONE INJECTION CPT-4: J2930 05/04/2018 FLU VACC PRSV FREE INC ANTIG 65 AND OLDER CPT-4: 80974 02/10/2018 PNEUMOCOCCAL VACC 13 [facility] IM CPT-4: 41157 02/10/2018 ADMIN INFLUENZA VIRUS VAC CPT-4: G0008 02/10/2018 ADMIN PNEUMOCOCCAL VACCINE CPT-4: G0009 02/10/2018 THER/PROPH/DIAG INJ SC/IM CPT-4: 70508 09/09/2017 TRIAMCINOLONE ACET INJ NOS CPT-4: J3301 09/09/2017 ALBUTEROL NON-COMP UNIT CPT-4: J7613 04/10/2017 AIRWAY INHALATION TREATMENT CPT-4: 00211 04/10/2017 PRESCRIP TRANSMIT VIA ERX SY CPT-4: G8553 04/10/2017 FLU VACC PRSV FREE INC ANTIG 65 AND OLDER CPT-4: 91474 03/28/2017 ADMIN INFLUENZA VIRUS VAC CPT-4: G0008 03/28/2017 PRESCRIP TRANSMIT VIA ERX SY CPT-4: G8553 08/27/2016 PRESCRIP TRANSMIT VIA ERX SY CPT-4: G8553 06/14/2016 ALBUTEROL NON-COMP UNIT CPT-4: J7613 06/13/2016 AIRWAY INHALATION TREATMENT CPT-4: 65657 06/13/2016 PRESCRIP TRANSMIT VIA ERX SY CPT-4: [...] CPT-4: G8553 11/07/2014 THER/PROPH/DIAG INJ SC/IM CPT-4: 05393 09/21/2014 METHYLPREDNISOLONE INJECTION CPT-4: J2930 09/21/2014 PRESCRIP TRANSMIT VIA ERX SY CPT-4: G8553 09/21/2014 PRESCRIP TRANSMIT VIA ERX SY CPT-4: G8553 06/10/2014 URINALYSIS NONAUTO W/O SCOPE CPT-4: 93193 06/01/2012 PRESCRIP TRANSMIT VIA ERX SY CPT-4: G8553 05/25/2012 PRESCRIP TRANSMIT VIA ERX SY CPT-4: G8553 12/03/2011 CUR TOBACCO NON-USER CPT-4: G8457 05/30/2011 PRESCRIP TRANSMIT VIA ERX SY CPT-4: G8553 05/30/2011 URINALYSIS NONAUTO W/O SCOPE CPT-4: 94979 01/01/2011 URINE CULTURE/ COLONY COUNT CPT-4: 70149 01/01/2011 CUR TOBACCO NON-USER CPT-4: G8457 01/01/2011 [...] 1: 114/68 Code: 8480-6 BMI: 43.5 Code: 00542-3 Heart Rate 1: 52 bpm Height: 6'1" [...] 1: 136/72 Code: 8480-6 BMI: 42.7 Code: 69328-0 Heart Rate 1: 60 bpm Height: 6'1" Respiratory Rate: 22 bpm SpO2: 95% Tempera ture: 37.1 (C) / 98.7 (F) Weight: 324 lbs 02/10/2018 Blood Pressure 1: 146/78 Code: 8480-6 BMI: 42.4 Code: 48492-9 Heart Rate 1: 64 bpm Height: 6'1" Respiratory Rate: 22 bpm SpO2: 95% Tempera ture: 36.5 (C) / 97.7 (F) Weight: 321 lbs 11/05/2017 Blood Pressure 1: 128/84 Code: 8480-6 BMI: 42.9 Code: 02408-5 Heart Rate 1: 52 bpm Height: 6'1" Respiratory Rate: 22 bpm SpO2: 95% Tempera ture: 36.3 (C) / 97.3 (F) Weight: 325 lbs 09/09/2017 Blood Pressure 1: 162/90 Code: 8480-6 BMI: 42.5 Code: 35377-1 Heart Rate 1: 60 bpm Height: 6'1" Respiratory Rate: 24 bpm SpO2: 95% Tempera ture: 36.4 (C) / 97.6 (F) Weight: 322 lbs 08/07/2017 Blood Pressure 1: 152/90 Code: 8480-6 BMI: 42.2 Code: 62139-4 Heart Rate 1: 60 bpm Height: 6'1" Respiratory Rate: 26 bpm SpO2: 94% Tempera ture: 36.6 (C) / 97.8 (F) Weight: 320 lbs 08/04/2017 Blood Pressure 1: 150/86 Code: 8480-6 BMI: 42.7 Code: 41718-0 Heart Rate 1: 64 bpm Height: 6'1" Respiratory Rate: 20 bpm SpO2: 94% Tempera ture: 36.3 (C) / 97.3 (F) Weight: 324 lbs 06/04/2017 Blood Pressure 1: 164/90 Code: 8480-6 Heart Rate 1: 60 bpm Respiratory Rate: 24 bpm SpO2: 94% Temperature: 36.8 (C) / 98.3 (F) 06/02/2017 Blood Pressure 1: 162/80 Code: 8480-6 BMI: 42.9 Code: 45393-0 Heart Rate 1: 66 bpm Height: 6'1" Respiratory Rate: 22 bpm SpO2: 98% Tempera ture: 36.6 (C) / 97.8 (F) Weight: 325 lbs 05/05/2017 Blood Pressure 1: 164/94 Code: 8480-6 BMI: 41.4 Code: 29734-8 Heart Rate 1: 64 bpm Height: 6'1" Respiratory Rate: 22 bpm SpO2: 95% Tempera ture: 36.4 (C) / 97.5 (F) Weight: 314 lbs 04/10/2017 Blood Pressure 1: 136/78 Code: 8480-6 BMI: 42.0 Code: 74017-0 Heart Rate 1: 76 bpm Height: 6'1" Respiratory Rate: 24 bpm SpO2: 92% Tempera ture: 35.9 (C) / 96.7 (F) Weight: 318 lbs 02/03/2017 Blood Pressure 1: 134/82 Code: 8480-6 BMI: 41.7 Code: 61851-8 Heart Rate 1: 72 bpm Height: 6'1" Respiratory Rate: 24 bpm SpO2: 95% Tempera ture: 36.1 (C) / 97.0 (F) Weight: 316 lbs 10/30/2016 Blood Pressure 1: 126/74 Code: 8480-6 BMI: 41.3 Code: 46643-3 Heart Rate 1: 68 bpm Height: 6'1" Respiratory Rate: 20 bpm Temperature: 37 .1 (C) / 98.8 (F) Weight: 313 lbs 08/30/2016 Blood Pressure 1: 146/80 Code: 8480-6 BMI: 41.7 Code: 31098-5 Heart Rate 1: 64 bpm Height: 6'1" Respiratory Rate: 24 bpm SpO2: 94% Tempera ture: 36.6 (C) / 97.8 (F) Weight: 316 lbs 08/27/2016 Blood Pressure 1: 12478 Code: 8480-6 Heart Rate 1: 66 bpm Height: 6'2" Respiratory Rate: 18 bpm SpO2: 94% Temperature: 36.6 (C) / 97.8 (F) Weight: 07/02/2016 Blood Pressure 1: 12678 Code: 8480-6 BMI: 41.4 Code: 15814-6 Heart Rate 1: 68 bpm Height: 6'1" Respiratory Rate: 24 bpm SpO2: 94% Tempera ture: 36.6 (C) / 97.8 (F) Weight: 314 lbs 06/14/2016 Blood Pressure 1: 146/82 Code: 8480-6 Heart Rate 1: 80 bpm Respiratory Rate: 20 bpm SpO2: 95% Temperature: 37.3 (C) / 99.2 (F) 06/13/2016 Blood Pressure 1: 146/84 Code: 8480-6 BMI: 40.5 Code: 42494-1 Heart Rate 1: 66 bpm Height: 6'1" Respiratory Rate: 28 bpm SpO2: 93% Tempera ture: 35.8 (C) / 96.4 (F) Weight: 307 lbs 05/14/2016 Blood Pressure 1: 146/90 Code: 8480-6 BMI: 41.2 Code: 81409-8 Heart Rate 1: 68 bpm Height: 6'1" Respiratory Rate: 26 bpm Temperature: 36 .8 (C) / 98.2 (F) Weight: 312 lbs 04/29/2016 Blood Pressure 1: 152/90 Code: 8480-6 BMI: 41.0 Code: 34926-2 Heart Rate 1: 68 bpm Height: 6'1" Respiratory Rate: 26 bpm SpO2: 94% Tempera ture: 36.1 (C) / 96.9 (F) Weight: 311 lbs 04/22/2016 Blood Pressure 1: 152/94 Code: 8480-6 BMI: 40.9 Code: 96488-3 Heart Rate 1: 68 bpm Height: 6'1" Respiratory Rate: 24 bpm SpO2: 94% Tempera ture: 36.2 (C) / 97.2 (F) Weight: 310 lbs 04/01/2016 Blood Pressure 1: 156/78 Code: 8480-6 BMI: 40.6 Code: 12747-9 Heart Rate 1: 84 bpm Height: 6'1" Respiratory Rate: 22 bpm SpO2: 95% Tempera ture: 37.1 (C) / 98.7 (F) Weight: 308 lbs 11/30/2015 Blood Pressure 1: 142/80 Code: 8480-6 BMI: 40.5 Code: 35146-7 Heart Rate 1: 88 bpm Height: 6'1" Respiratory Rate: 22 bpm Temperature: 36 .2 (C) / 97.2 (F) Weight: 307 lbs 08/29/2015 Blood Pressure 1: 132/70 Code: 8480-6 BMI: 40.0 Code: 53498-7 Heart Rate 1: 76 bpm Height: 6'1" Respiratory Rate: 24 bpm SpO2: 96% Tempera ture: 36.7 (C) / 98.0 (F) Weight: 303 lbs 08/14/2015 Blood Pressure 1: 126/80 Code: 8480-6 BMI: 39.4 Code: 49406-6 Heart Rate 1: 92 bpm Height: 6'1" Respiratory Rate: 24 bpm SpO2: 94% Tempera ture: 37.8 (C) / 100.0 (F) Weight: 299 lbs 08/09/2015 Blood Pressure 1: 146/82 Code: 8480-6 Heart Rate 1: 82 bpm Respiratory Rate: 22 bpm SpO2: 93% Temperature: 35.9 (C) / 96.6 (F) We ight: 310 lbs 05/22/2015 Blood Pressure 1: 156/76 Code: 8480-6 BMI: 41.0 Code: 46604-4 Heart Rate 1: 100 bpm Height: 6'1" Respiratory Rate: 22 bpm Temperature: 37 .2 (C) / 98.9 (F) Weight: 311 lbs 02/13/2015 Blood Pressure 1: 166/90 Code: 8480-6 BMI: 41.2 Code: 57823-7 Heart Rate 1: 72 bpm Height: 6'1" Respiratory Rate: 24 bpm SpO2: 93% Tempera ture: 36.9 (C) / 98.5 (F) Weight: 312 lbs 11/07/2014 Blood Pressure 1: 134/70 Code: 8480-6 BMI: 40.5 Code: 66668-9 Heart Rate 1: 76 bpm Height: 6'1" Respiratory Rate: 24 bpm Temperature: 36 .9 (C) / 98.4 (F) Weight: 307 lbs 10/04/2014 Blood Pressure 1: 144/86 Code: 8480-6 BMI: 40.1 Code: 41527-0 Heart Rate 1: 76 bpm Height: 6'1" Respiratory Rate: 28 bpm Temperature: 36 .6 (C) / 97.9 (F) Weight: 304 lbs 09/22/2014 Blood Pressure 1: 142/80 Code: 8480-6 BMI: 40.0 Code: 73505-2 Heart Rate 1: 80 bpm Height: 6'1" Respiratory Rate: 22 bpm SpO2: 96% Tempera ture: 36.6 (C) / 97.8 (F) Weight: 303 lbs 09/21/2014 Blood Pressure 1: 160/66 Code: 8480-6 BMI: 40.0 Code: 51528-4 Heart Rate 1: 90 bpm Height: 6'1" Respiratory Rate: 26 bpm SpO2: 94% Tempera ture: 35.7 (C) / 96.2 (F) Weight: 303 lbs 06/28/2014 Blood Pressure 1: 132/80 Code: 8480-6 BMI: 41.0 Code: 27012-6 Heart Rate 1: 64 bpm Height: 6' Respiratory Rate: 20 bpm Temperature: 36 .7 (C) / 98.0 (F) Weight: 302 lbs 06/10/2014 Blood Pressure 1: 152/70 Code: 8480-6 BMI: 41.1 Code: 36403-9 Heart Rate 1: 76 bpm Height: 6' Respiratory Rate: 20 bpm Temperature: 36 .6 (C) / 97.8 (F) Weight: 303 lbs 03/29/2014 Blood Pressure 1: 132/78 Code: 8480-6 BMI: 40.6 Code: 74635-1 Heart Rate 1: 84 bpm Height: 6' Respiratory Rate: 22 bpm Temperature: 37 .1 (C) / 98.8 (F) Weight: 299 lbs 11/30/2013 Blood Pressure 1: 136/84 Code: 8480-6 BMI: 39.2 Code: 48964-1 Heart Rate 1: 76 bpm Height: 6' Respiratory Rate: 20 bpm Temperature: 36 .8 (C) / 98.2 (F) Weight: 289 lbs 08/03/2013 Blood Pressure 1: 144/80 Code: 8480-6 Heart Rate 1: 86 bpm Respiratory Rate: 20 bpm Temperature: 36.6 (C) / 97.8 (F) Weight: 296 lbs 04/06/2013 Blood Pressure 1: 142/90 Code: 8480-6 BMI: 40.3 Code: 27607-0 Heart Rate 1: 88 bpm Height: 6' Respiratory Rate: 20 bpm Temperature: 36 .6 (C) / 97.8 (F) Weight: 297 lbs 12/01/2012 Blood Pressure 1: 124/78 Code: 8480-6 BMI: 38.7 Code: 12726-5 Heart Rate 1: 76 bpm Height: 6' Respiratory Rate: 20 bpm Temperature: 37 .2 (C) / 98.9 (F) Weight: 285 lbs 08/04/2012 Blood Pressure 1: 128/80 Code: 8480-6 BMI: 38.2 Code: 23217-8 Heart Rate 1: 76 bpm Height: 6' Respiratory Rate: 20 bpm Temperature: 37 .0 (C) / 98.6 (F) Weight: 282 lbs 05/29/2012 Blood Pressure 1: 138/78 Code: 8480-6 BMI: 36.6 Code: 91737-9 Heart Rate 1: 66 bpm Height: 6' Temperature: 36.7 (C) / 98.1 (F) Weight: 270 lbs 05/25/2012 Blood Pressure 1: 128/72 Code: 8480-6 BMI: 39.9 Code: 82943-8 Heart Rate 1: 74 bpm Height: 6' Temperature: 36.1 (C) / 97.0 (F) Weight: 294 lbs 04/07/2012 Blood Pressure 1: 124/76 Code: 8480-6 BMI: 39.9 Code: 01971-8 Heart Rate 1: 72 bpm Height: 6' Respiratory Rate: 20 bpm Temperature: 36 .9 (C) / 98.5 (F) Weight: 294 lbs 12/16/2011 Blood Pressure 1: 128/80 Code: 8480-6 BMI: 40.8 Code: 08989-3 Heart Rate 1: 74 bpm Height: 6' Temperature: 36.6 (C) / 97.8 (F) Weight: 301 lbs 12/03/2011 Blood Pressure 1: 132/76 Code: 8480-6 BMI: 40.8 Code: 78719-2 Heart Rate 1: 68 bpm Height: 6' Respiratory Rate: 20 bpm Temperature: 36 .8 (C) / 98.2 (F) Weight: 301 lbs 08/29/2011 Blood Pressure 1: 140/68 Code: 8480-6 BMI: 40.8 Code: 96390-7 Heart Rate 1: 80 bpm Height: 6' Respiratory Rate: 20 bpm Temperature: 36 .4 (C) / 97.6 (F) Weight: 301 lbs 05/30/2011 Blood Pressure 1: 134/82 Code: 8480-6 BMI: 41.5 Code: 55036-3 Heart Rate 1: 76 bpm Height: 6' [...] 1: 126/72 Code: 8480-6 BMI: 41.2 Code: 82909-5 Heart Rate 1: 76 bpm Height: 6' [...] 1: 152/90 Code: 8480-6 BMI: 37.7 Code: 73944-7 Heart Rate 1: 92 bpm Height: 6'1" [...] dm Encounters Encounter Performer Location Codes Date ([id number]) OFFICE/OUTPATIENT VISIT EST Diagnosis: Chronic obstructive pulmonary disease, unspecified[ICD10: J44.9] Diagnosis: Essential (primary) hypertension[ICD10: I10] Diagnosis: Mixed hyperlipidemia[ICD10: E78.2] Diagnosis: Type 2 diabetes mellitus with hyperglycemia[ICD10: E11.65] Neela HYMAN [facility] CPT-4: 64355 08/30/2019 ([id number]) OFFICE/OUTPATIENT VISIT EST Diagnosis: Chronic obstructive pulmonary disease with (acute) exacerbation[ICD10: J44.1] Neela ZHANG [facility] CPT- 4: 34859 08/10/2019 ([id number]) OFFICE/OUTPATIENT VISIT EST Diagnosis: Sore on toe[ICD10: L98.9] Neela VASQUEZ [facility] CPT-4: 06770 07/06/2019 ([id number]) OFFICE/OUTPATIENT VISIT EST Diagnosis: Advanced chronic obstructive pulmonary disease[ICD10: J44.9] 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] Neela QURESHI [employer] [facility] CPT-4: 18036 05/10/2019 ([id number]) OFFICE/OUTPATIENT VISIT EST Diagnosis: Chronic obstructive pulmonary disease with (acute) exacerbation[ICD10: J44.1] Diagnosis: Hypokalemia[ICD10: E87.6] 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] Neela HORAN [employer] [facility] CPT-4: 48295 03/29/2019 ([id number]) NURSE/OUTPATIENT VISIT EST Diagnosis: PNEUMOCOCCAL VACCINE[ICD10: Z23] Neela [employer] [facility] CPT-4: 21978 03/04/2019 ([id number]) OFFICE/OUTPATIENT VISIT EST Diagnosis: Chronic obstructive pulmonary disease with (acute) exacerbation[ICD10: J44.1] Diagnosis: Other nonspecific abnormal finding of lung field[ICD10: R91.8] Neela Vicenteinna NEELA ZHANG [facility] CPT-4: 51654 01/05/2019 ([id number]) OFFICE/OUTPATIENT VISIT EST Diagnosis: Solitary pulmonary nodule[ICD10: R91.1] 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] Diagnosis: Tinea corporis[ICD10: B35.4] Neela HYMAN [facility] CPT-4: 74163 12/09/2018 ([id number]) OFFICE/OUTPATIENT VISIT EST Diagnosis: COUGH[ICD10: R05] Diagnosis: Chronic obstructive pulmonary disease, unspecified[ICD10: J44.9] Diagnosis: Other disorders of lung[ICD10: J98.4] Diagnosis: Other nonspecific abnormal finding of lung field[ICD10: R91.8] Neela HYMAN [facility] CPT-4: 92637 11/24/2018 ([id number]) OFFICE/OUTPATIENT VISIT EST Diagnosis: Pneumonia, unspecified organism[ICD10: J18.9] Amita HYMAN [facility] CPT-4: 50050 09/16/2018 ([id number]) OFFICE/OUTPATIENT VISIT EST Diagnosis: Pneumonia, unspecified organism[ICD10: J18.9] [facility]: 78480 09/03/2018 ([id number]) OFFICE/OUTPATIENT VISIT EST Diagnosis: Personal history of pneumonia (recurrent)[ICD10: Z87.01] Diagnosis: Cough[ICD10: R05] Diagnosis: Essential (primary) hypertension[ICD10: I10] Diagnosis: Type 2 diabetes mellitus with hyperglycemia[ICD10: E11.65] Amita ZHANG [facility] CPT-4: 39343 08/27/2018 OFFICE/OUTPATIENT VISIT EST Diagnosis: Pneumonia, unspecified organism[ICD10: J18.9] Diagnosis: Chronic obstructive pulmonary disease with (acute) exacerbation[ICD10: J44.1] Diagnosis: Other specified symptoms and signs involving the circulatory and respiratory systems[ICD10: R09.89] Diagnosis: Essential (primary) hypertension[ICD10: I10] Amita ZHANG [facility] CPT-4: 55930 08/13/2018 OFFICE/OUTPATIENT VISIT EST Diagnosis: Pneumonia, unspecified organism[ICD10: J18.9] Diagnosis: Other specified symptoms and signs involving the circulatory and respiratory systems[ICD10: R09.89] Amita HYMAN DO [facility] CPT-4: 72879 08/11/2018 ([id number]) OFFICE/OUTPATIENT VISIT EST Diagnosis: Dyspnea, unspecified[ICD10: R06.00] Diagnosis: Chronic obstructive pulmonary disease with (acute) exacerbation[ICD10: J44.1] Diagnosis: Pneumonia, unspecified organism[ICD10: J18.9] Amita HYMAN [facility] CPT-4: 65402 07/16/2018 ([id number]) OFFICE/OUTPATIENT VISIT EST Diagnosis: Acute bronchitis due to other specified organisms[ICD10: J20.8] Diagnosis: Cough[ICD10: R05] Amita HYMAN [facility] T-4: 35475 07/13/2018 ([id number]) OFFICE/OUTPATIENT VISIT EST Diagnosis: Essential (primary) hypertension[ICD10: I10] Diagnosis: Chronic obstructive pulmonary disease, unspecified[ICD10: J44.9] Diagnosis: Type 2 diabetes mellitus with hyperglycemia[ICD10: E11.65] Diagnosis: Mixed hyperlipidemia[ICD10: E78.2] Neela Sergechristina STERLING Octvaio ZHANG [facility] CPT-4: 90007 06/03/2018 ([id number]) OFFICE/OUTPATIENT VISIT EST Diagnosis: Chronic obstructive pulmonary disease, unspecified[ICD10: J44.9] Gely Harp NEELA Octavio HYMAN [facility] CPT-4: 49152 05/04/2018 ([id number]) OFFICE/OUTPATIENT VISIT EST Diagnosis: Essential (primary) hypertension[ICD10: I10] Diagnosis: Localized edema[ICD10: R60.0] Neela MURILLO [employer]issa[employer] YENNI [facility] CPT-4: 06834 03/03/2018 ([id number]) OFFICE/OUTPATIENT VISIT EST Diagnosis: Localized edema[ICD10: R60.0] Neela MURILLO JulissaMendez VICENTE [facility] CPT-4: 14748 02/17/2018 ([id number]) OFFICE/OUTPATIENT VISIT EST Diagnosis: FLU VACCINE[ICD10: Z23] Diagnosis: PNEUMOCOCCAL VACCINE[ICD10: Z23] Diagnosis: Type 2 diabetes mellitus without complications[ICD10: E11.9] Diagnosis: Mixed hyperlipidemia[ICD10: E78.2] Diagnosis: Essential (primary) hypertension[ICD10: I10] Diagnosis: Localized edema[ICD10: R60.0] Diagnosis: Chronic obstructive pulmonary disease, unspecified[ICD10: J44.9] Neela MIRZALINE Octavio HYMAN [facility] CPT-4: 57326 02/10/2018 ([id number]) OFFICE/OUTPATIENT VISIT EST Diagnosis: Type 2 diabetes mellitus with hyperglycemia[ICD10: E11.65] Diagnosis: Mixed hyperlipidemia[ICD10: E78.2] Diagnosis: Essential (primary) hypertension[ICD10: I10] Diagnosis: Chronic obstructive pulmonary disease, unspecified[ICD10: J44.9] Diagnosis: Cutaneous abscess of back [any part, except buttock][ICD10: L02.212] Neela MIRZALINE Octavio LAWLERRenéSim [facility] CPT-4: 35285 11/05/2017 ([id number]) OFFICE/OUTPATIENT VISIT EST Diagnosis: Allergic urticaria[ICD10: L50.0] Gely MIRZALINE [employer] [employer] [facility] CPT-4: 79761 09/09/2017 ([id number]) OFFICE/OUTPATIENT VISIT EST Diagnosis: Generalized enlarged lymph nodes[ICD10: R59.1] Diagnosis: Acute gastritis without bleeding[ICD10: K29.00] Gely MIRZALINE Octavio HYMAN [facility] CPT-4: 81566 08/07/2017 ([id number]) OFFICE/OUTPATIENT VISIT EST Diagnosis: Type 2 diabetes mellitus without complications[ICD10: E11.9] Diagnosis: Mixed hyperlipidemia[ICD10: E78.2] Diagnosis: Essential (primary) hypertension[ICD10: I10] Neela MIRZALINE JulissaMendez VICENTE [facility] CPT-4: 06004 08/04/2017 ([id number]) OFFICE/OUTPATIENT VISIT EST Diagnosis: Zoster without complications[ICD10: B02.9] Diagnosis: Acute sialoadenitis[ICD10: K11.21] Gely HYMAN [facility] CPT-4: 16998 06/04/2017 OFFICE/OUTPATIENT VISIT EST Diagnosis: Zoster without complications[ICD10: B02.9] Diagnosis: Acute sialoadenitis[ICD10: K11.21] Gely HYMAN [facility] CPT-4: 05322 06/02/2017 ([id number]) OFFICE/OUTPATIENT VISIT EST Diagnosis: Type 2 diabetes mellitus without complications[ICD10: E11.9] Diagnosis: Mixed hyperlipidemia[ICD10: E78.2] Diagnosis: Essential (primary) hypertension[ICD10: I10] Diagnosis: Chronic obstructive pulmonary disease, unspecified[ICD10: J44.9] Neela HYMAN [facility] CPT-4: 42873 05/05/2017 OFFICE/OUTPATIENT VISIT EST Diagnosis: Chronic obstructive pulmonary disease with acute lower respiratory infection[ICD10: J44.0] Diagnosis: Impacted cerumen, bilateral[ICD10: H61.23] Gely HYMAN [facility] CPT-4: 93712 04/10/2017 ([id number]) OFFICE/OUTPATIENT VISIT EST Diagnosis: FLU VACCINE[ICD10: Z23] Neela ZHANG [facility] CPT-4: 26201 03/28/2017 ([id number]) OFFICE/OUTPATIENT VISIT EST Diagnosis: Type 2 diabetes mellitus without complications[ICD10: E11.9] Diagnosis: Mixed hyperlipidemia[ICD10: E78.2] Diagnosis: Essential (primary) hypertension[ICD10: I10] Diagnosis: Chronic obstructive pulmonary disease, unspecified[ICD10: J44.9] Neela ZHANG [facility] CPT-4: 17537 02/03/2017 ([id number]) OFFICE/OUTPATIENT VISIT EST Diagnosis: Type 2 diabetes mellitus with hyperglycemia[ICD10: E11.65] Diagnosis: Mixed hyperlipidemia[ICD10: E78.2] Diagnosis: Essential (primary) hypertension[ICD10: I10] Diagnosis: Chronic obstructive pulmonary disease, unspecified[ICD10: J44.9] Neela Yenni ZHANG [facility] CPT-4: 11982 10/30/2016 ([id number]) NO CHARGE Diagnosis: Acute bronchitis, unspecified[ICD10: J20.9] Sammi HYMAN DO [facility] CPT-4: 49506 08/30/2016 ([id number]) OFFICE/OUTPATIENT VISIT EST Diagnosis: Acute bronchitis, unspecified[ICD10: J20.9] Diagnosis: Other seasonal allergic rhinitis[ICD10: J30.2] Sammi HYMAN DO [facility] CPT-4: 06176 08/27/2016 ([id number]) OFFICE/OUTPATIENT VISIT EST Diagnosis: Type 2 diabetes mellitus without complications[ICD10: E11.9] Diagnosis: Mixed hyperlipidemia[ICD10: E78.2] Diagnosis: Essential (primary) hypertension[ICD10: I10] Neela HYMAN DO [facility] CPT-4: 83954 07/02/2016 ([id number]) OFFICE/OUTPATIENT VISIT EST Diagnosis: Acute bronchitis, unspecified[ICD10: J20.9] Sammi HYMAN DO [facility] CPT-4: 26104 06/14/2016 ([id number]) OFFICE/OUTPATIENT VISIT EST Diagnosis: Acute bronchitis, unspecified[ICD10: J20.9] Sammi HYMAN DO [facility] CPT-4: 91699 06/13/2016 ([id number]) OFFICE/OUTPATIENT VISIT EST Diagnosis: Essential (primary) hypertension[ICD10: I10] Neela HYMAN DO [facility] CPT-4: 38547 05/14/2016 ([id number]) OFFICE/OUTPATIENT VISIT EST Diagnosis: Essential (primary) hypertension[ICD10: I10] Neela HYMAN DO [facility] CPT-4: 65644 04/29/2016 ([id number]) OFFICE/OUTPATIENT VISIT EST Diagnosis: Unspecified abdominal pain[ICD10: R10.9] Diagnosis: Left lower quadrant pain[ICD10: R10.32] Diagnosis: Left upper quadrant pain[ICD10: R10.12] Diagnosis: Essential (primary) hypertension[ICD10: I10] Neela HYMAN Doist [facility] CPT-4: 85111 04/22/2016 ([id number]) OFFICE/OUTPATIENT VISIT EST Diagnosis: Type 2 diabetes mellitus without complications[ICD10: E11.9] Diagnosis: Mixed hyperlipidemia[ICD10: E78.2] Diagnosis: Essential (primary) hypertension[ICD10: I10] Neela Yenni MIRZALINE Octavio HYMAN DO [facility] CPT-4: 22946 04/01/2016 ([id number]) OFFICE/OUTPATIENT VISIT EST Diagnosis: Type 2 diabetes mellitus with hyperglycemia[ICD10: E11.65] Diagnosis: Mixed hyperlipidemia[ICD10: E78.2] Diagnosis: Essential (primary) hypertension[ICD10: I10] Neela Sergegemmainna MIRZANEELA Octavio HYMAN DO [facility] CPT-4: 71735 11/30/2015 ([id number]) OFFICE/OUTPATIENT VISIT EST Diagnosis: Type 2 diabetes mellitus with diabetic neuropathy, unspecified[ICD10: E11.40] Diagnosis: Essential (primary) hypertension[ICD10: I10] Diagnosis: Mixed hyperlipidemia[ICD10: E78.2] Neela STERLIGN Octavio HYMAN DO [facility] CPT-4: 85467 08/29/2015 ([id number]) OFFICE/OUTPATIENT VISIT EST Diagnosis: COUGH[ICD10: R05] Diagnosis: Wheezing[ICD10: R06.2] Diagnosis: Type 2 diabetes mellitus with diabetic neuropathy, unspecified[ICD10: E11.40] Neela MURILLO Octavio HYMAN DO [facility] CPT-4: [address] 08/14/2015 ([id number]) OFFICE/OUTPATIENT VISIT EST Diagnosis: Other seasonal allergic rhinitis[ICD10: J30.2] Diagnosis: Dyspnea, unspecified[ICD10: R06.00] Diagnosis: Wheezing[ICD10: R06.2] Sammicharly Najera NEELA Octavio HYMAN DO [facility] CPT-4: 94699 08/09/2015 ([id number]) OFFICE/OUTPATIENT VISIT EST Diagnosis: Essential (primary) hypertension[ICD10: I10] Diagnosis: Type 2 diabetes mellitus with hyperglycemia[ICD10: E11.65] Diagnosis: Mixed hyperlipidemia[ICD10: E78.2] Neela STERLING Octavio HYMAN DO [facility] CPT-4: 27866 05/22/2015 ([id number]) OFFICE/OUTPATIENT VISIT EST Diagnosis: 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] Diagnosis: - I - HYPERTENSION[ICD9: 401.9] Diagnosis: - I - HYPERLIPIDEMIA NEC/NOS[ICD9: 272.4] Diagnosis: Left hand paresthesia[ICD9: 782.0] Neela STERLING JulissaMendez YENNI Doist [facility] CPT-4: 31683 02/13/2015 ([id number]) OFFICE/OUTPATIENT VISIT EST Diagnosis: HYPERLIPIDEMIA NEC/NOS[ICD9: 272.4] Diagnosis: 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] Neelasabina MURILLO JulissaMendez YENNI [facility] CPT-4: 59895 11/07/2014 ([id number]) OFFICE/OUTPATIENT VISIT EST Diagnosis: ALLERGIC RHINITIS[ICD9: 477.9] Diagnosis: WHEEZING[ICD9: 786.07] Neela Sergechristina MURILLO JulissaMendez ABY Duarte Doist [facility] CPT-4: 59335 10/04/2014 ([id number]) OFFICE/OUTPATIENT VISIT EST Diagnosis: BRONCHITIS, ACUTE[ICD9: 466.0] Diagnosis: WHEEZING[ICD9: 786.07] Loren WallaceViraj NEELA JulissaMendez ABY Duarte Doist [facility] CPT-4: 27216 09/22/2014 ([id number]) OFFICE/OUTPATIENT VISIT EST Diagnosis: DYSPNEA[ICD9: 786.09] Diagnosis: WHEEZING[ICD9: 786.07] Diagnosis: Arrhythmia[ICD9: 427.9] Loren WallaceViraj ANNQUELINE JulissaMendez VICENTE Doist [facility] CPT-4: 63563 09/21/2014 ([id number]) OFFICE/OUTPATIENT VISIT EST Diagnosis: 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, 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] Diagnosis: - I - HYPERLIPIDEMIA NEC/NOS[ICD9: 272.4] Diagnosis: - I - HYPERTENSION[ICD9: 401.9] Neela MURILLO JulissaMendez YENNI [facility] CPT-4: 63323 06/28/2014 OFFICE/OUTPATIENT VISIT EST Diagnosis: SINUSITIS, ACUTE[ICD9: 461.9] Diagnosis: OTITIS MEDIA NOS[ICD9: 382.9] Sarah MURILLO [facility]Mendez [facility] CPT-[facility]: 94628 06/10/2014 ([id number]) OFFICE/OUTPATIENT VISIT EST Diagnosis: 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] Diagnosis: - I - HYPERLIPIDEMIA NEC/NOS[ICD9: 272.4] Diagnosis: - I - HYPERTENSION[ICD9: 401.9] Neela [facility] CPT-4: 16566 03/29/2014 ([id number]) OFFICE/OUTPATIENT VISIT EST Diagnosis: 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] Diagnosis: - I - HYPERTENSION[ICD9: 401.9] Diagnosis: - I - HYPERLIPIDEMIA NEC/NOS[ICD9: 272.4] Diagnosis: Hand lesion[ICD9: 709.9] Neela Sergegemmainna NEELA JulissaMendez RAYA MADRIGAL [facility] CPT-4: 23736 11/30/2013 ([id number]) OFFICE/OUTPATIENT VISIT EST Diagnosis: 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] Diagnosis: HYPERLIPIDEMIA NEC/NOS[ICD9: 272.4] Diagnosis: HYPERTENSION[ICD9: 401.9] Neela MIRZALINE Octavio [facility] CPT-[facility]: 10255 08/03/2013 ([id number]) OFFICE/OUTPATIENT VISIT EST Diagnosis: 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, 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] Diagnosis: HYPERTENSION[ICD9: 401.9] Diagnosis: HYPERLIPIDEMIA NEC/NOS[ICD9: 272.4] Neela Cunningham [facility] CPT-4: 93532 04/06/2013 ([id number]) OFFICE/OUTPATIENT VISIT EST Diagnosis: 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] Diagnosis: HYPERLIPIDEMIA NEC/NOS[ICD9: 272.4] Diagnosis: HYPERTENSION[ICD9: 401.9] Neela Sergegemmainna ANNNEELA JulissaMendez SERGE VASQUEZ [facility] CPT-4: 26249 12/01/2012 ([id number]) OFFICE/OUTPATIENT VISIT EST Diagnosis: 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] Diagnosis: HYPERTENSION[ICD9: 401.9] Diagnosis: HYPERLIPIDEMIA NEC/NOS[ICD9: 272.4] Neela GREGORIO JulissaMendez ORENDER [facility] CPT-4: 18438 08/04/2012 ([id number]) OFFICE/OUTPATIENT VISIT EST Diagnosis: URINARY FREQUENCY[ICD9: 788.41] Neela HYMAN [facility] CPT-4: 85340 06/01/2012 OFFICE/OUTPATIENT VISIT EST Diagnosis: Agitation[ICD9: 307.9] Diagnosis: Frequent urination[ICD9: 788.41] Janet MIRZALINE Octavio HYMAN [facility] CPT-4: 42118 05/29/2012 OFFICE/OUTPATIENT VISIT EST Diagnosis: SINUSITIS, ACUTE[ICD9: 461.9] Diagnosis: OTALGIA[ICD9: 388.70] Neela [facility] CPT-4: 58802 05/25/2012 OFFICE/OUTPATIENT VISIT EST Diagnosis: 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, 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] Diagnosis: HYPERTENSION[ICD9: 401.9] Diagnosis: HYPERLIPIDEMIA NEC/NOS[ICD9: 272.4] Neela [facility] CPT-4: 50832 04/07/2012 OFFICE/OUTPATIENT VISIT EST Diagnosis: FINGER INJURY[ICD9: 959.5] Janet Markel NEELA REYNA [facility] CPT-4: 71258 12/16/2011 ([id number]) OFFICE/OUTPATIENT VISIT EST Diagnosis: 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, 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] Diagnosis: HYPERTENSION[ICD9: 401.9] Diagnosis: HYPERLIPIDEMIA NEC/NOS[ICD9: 272.4] Neela Sergegemmainna HYMAN [facility] CPT-4: 94779 12/03/2011 ([id number]) OFFICE/OUTPATIENT VISIT EST Diagnosis: 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] Diagnosis: HYPERLIPIDEMIA NEC/NOS[ICD9: 272.4] Diagnosis: HYPERTENSION[ICD9: 401.9] Neela Sergegemmainna MIRZANEELA Octavio [facility] CPT-4: 16523 08/29/2011 OFFICE/OUTPATIENT VISIT EST Diagnosis: 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] Diagnosis: HYPERLIPIDEMIA NEC/NOS[ICD9: 272.4] Diagnosis: HYPERTENSION[ICD9: 401.9] Neela MURILLO SMendez [facility] CPT-4: 01974 05/30/2011 OFFICE/OUTPATIENT VISIT EST Diagnosis: SKIN SENSATION DISTURB[ICD9: 782.0] Neela [facility] CPT-4: 30487 01/29/2011 OFFICE/OUTPATIENT VISIT EST Diagnosis: SKIN SENSATION DISTURB[ICD9: 782.0] Neela [facility] CPT-4: 45244 01/14/2011 OFFICE/OUTPATIENT VISIT EST Neela MURILLO SMendez LAWLER NDER DO [facility] CPT- 4: 24340 01/01/2011 OFFICE/OUTPATIENT VISIT EST Neela MURILLO SMendez [facility] CPT- 4: 78113 11/29/2010 ([id number]) OFFICE/OUTPATIENT VISIT EST Neela HORAN S. ORENDER DO [facility] CPT-4: 13682 08/28/2010 ([id number]) OFFICE/OUTPATIENT VISIT, EST Neela [facility] CPT-4: 81089 06/05/2010 ([id number]) OFFICE/OUTPATIENT VISIT, EST Neela [facility] CPT-4: 45326 02/05/2010 ([id number]) OFFICE/OUTPATIENT VISIT, EST Neela [facility] CPT-4: 78094 10/09/2009 ([id number]) OFFICE/OUTPATIENT VISIT, EST Neela [facility] CPT-4: 29957 08/22/2009 Plan of Care Planned Activity Notes [...] : J44.9 08/30/2019 Appointment: Neela Hyman WPtel: [address] [place], [place] [address] [place] FOLLOW UP 08/30/2019 Visit Diagnosis Plan: [...] : J44.1 08/10/2019 Appointment: Neela Hyman WPtel: [address] [place] [address] ACUTE ILLNESS 08/10/2019 Visit Diagnosis Plan: Sore on toe Discussion: Keep farhat an/dry Keflex Notify if worsens ICD-9 : 709.9 ICD-10 : L98.9 07/06/2019 Appointment: Neela Hyman WPtel: [address] [place] [address] ACUTE ILLNESS 07/06/2019 Patient Education: Jaskaran- OptimizeRClaudia Blue [phone] https://www.Popularo.Cargomatic/samplemd/resources/getResource/61/3lt505ah-50t5-5z51-18 Completed 07/06/2019 Visit Diagnosis Plan: Lymphoma involving lung Discussi on: Doing weekly lab and chemo ICD-9 : 202.82 ICD-10 : C85.99 05/10/2019 Visit Diagnosis Plan: Advanced chronic obstructive pul monary disease Discussion: Continue oxygen and pulmonary rehab Follow Up: 3 months ICD-9 : 496 ICD-10 : J44.9 05/10/2019 Appointment: Neela Hymantel: [address] [place], [place] [phone] FOLLOW UP 05/10/2019 Appointment: Neela Hyman WPtel: [address] [place], [place] [phone] he called 04/14/19-- he was at physical [...] : C85.99 03/29/2019 Appointment: Neela Hyman WPtel: [address] [place] [address] Hospital Follow Up 03/29/2019 Appointment: Neela Hyman WPtel: [address] [place], [place] [id number] [place] INJECTION 03/04/2019 Visit Diagnosis Plan: Chronic obstructiv e pulmonary disease with (acute) exacerbation Discussion: Increase SVNS with duoneb to QID Prednisone taper ICD-9 : 491.21 ICD-10 : J44.1 01/05/2019 Visit Diagnosis Plan: Other nonspecific abnormal findi ng of lung field Discussion: Referral to pulmonology--will likely need bronchoscopy--path results discussed ICD-9 : 786.6 ICD-10 : R91.8 01/05/2019 Appointment: Neela Hyman WPtel: [address] [place], [place] [phone] FOLLOW UP 01/05/2019 Patient Education: prednisone- OptimizeRX Coupon [phone] https://www.Popularo.Cargomatic/sampleContact At Once!/resources/getResource/61/r5uv8909-733j-0d68-tp Completed 01/05/2019 Care Plan: Referral Order SNOMED-CT : 30 [id number] Pending 01/05/2019 Appointment: Neela Hyman WPtel: [address] [place], [place] [phone] [place] CANCELED 12/21/2018 Visit Diagnosis Plan: Solitary pulmonary nodule Discus esmer: CT guided needle biopsy of RUL lung mass ICD-9 : 793.11 ICD-10 : R91.1 12/09/2018 Visit Diagnosis Plan: Tinea corporis Discussion: Diflu can--hold simvastatin and fenofibrate while taking ICD-9 : 110.5 ICD-10 : B35.4 12/09/2018 Appointment: Neela Hyman WPtel: [address] [place] [address] [place] FOLLOW UP 12/09/2018 Appointment: Gely Harp [address] [place] [address] [place] NO SHOW 12/01/2018 Visit Diagnosis Plan: [...] : J98.4 11/24/2018 Appointment: Neela Hyman WPtel: [address] [place], [place] [address] US FOLLOW UP 11/24/2018 Care Plan: PET IMAGE FULL BODY LOINC : 4 2711-2 Pending 11/24/2018 Appointment: Neela Hyman WPtel: [address] [place], [place] [address] [place] Consult 09/21/2018 Visit Diagnosis Plan: Pneumonia, unspecified organism Discussion: Patient clinically improved. Recent CT scan from 09/07 showed unresolved right upper lobe pneumonia. Finished another 7 days of levaquin. Will repeat CBC early next week. Order sent with patient to get done at [facility]. FU CT recommended in 4 weeks. Patient states understanding. ICD-9 : 486 ICD-10 : J18.9 09/16/2018 Appointment: Amita Henderson [id number] 09/16/2018 Visit Diagnosis Plan: Pneumonia, unspecified organism Discussion: Clinically patient feels and looks much better but need CT scan of chest due to ongoing round pneumonia in association with his known lymphoma ICD-9 : 486 ICD-10 : J18.9 09/03/2018 Appointment: Neela Hyman WPtel: [phone] [id number] FOLLOW UP 09/03/2018 Care Plan: CT THORAX [...] ICD-10 : I10 08/27/2018 Appointment: Amita Henderson [id number] 08/27/2018 Visit Diagnosis Plan: Chronic [...] ICD-10 : R09.89 08/13/2018 Appointment: Amita Henderson [facility]ari[facility] [id number] [facility] FOLLOW UP 08/13/2018 Appointment: Amita Henderson [facility] GametimeBURGKS[address] CANCELED 08/13/2018 Patient Education: prednisone- OptimizeRX Coupon [phone] https://www.SED Web/Popularo/resources/getResource/61/ex84nd1u-2i68-9no2-2h Completed 08/13/2018 Visit Diagnosis Plan: Other specified [...] : J18.9 08/11/2018 Appointment: Amita Henderson [facility] [employer]rest[employer] [id number] ACUTE ILLNESS 08/11/2018 Care Plan: CHEST X-RAY 2VW FRONTAL&LATL LOINC : 06397-3 Pending 07/20/2018 Visit Diagnosis Plan: Dyspnea, unspecified Discussion: CXR- to be completed at the hospital. Will call with results and any adjustments in plan. Solumedrol 125 administered in clinic Prednisone 20 mg BID x 5 days- start tomorrow ICD-9 : 786.09 ICD-10 : R06.00 07/16/2018 Appointment: Amita Henderson [address] [place], [place] [id number] ACUTE ILLNESS 07/16/2018 Patient Education: prednisone- OptimizeRX Coupon [phone] https://www.Popularo.Cargomatic/sampleContact At Once!/resources/getResource/61/20c1z4cd-zo59-9qd4-y8 Completed 07/16/2018 Visit Diagnosis Plan: Acute bronchitis due to other sp ecified organisms Discussion: Kenalog 40 mg IM administered in clinic. Doxycycline called into [facility]. Take as directed. Continue nebulizer and Trelegy. Follow up if symptoms are not improving with treatment regimen. Patient states understanding of all instruction. ICD-9 : 466.0 ICD-10 : J20.8 07/13/2018 Appointment: Amita Henderson [address] [place], [place] [address] ACUTE ILLNESS 07/13/2018 Patient Education: doxycycline hyclate- OptimizeRX Cou saritha [phone] https://www.Popularo.Cargomatic/Popularo/resources/getResource/61/5o100h79-0p7j-1299-5x Completed 07/13/2018 Care Plan: [place] : [address]-7 Pending 07/13/2018 Care Plan: CBC Pending 07/13/2018 Care Plan: A1C HPLC LOINC : 78847-3 Pending 07/13/2018 Visit Diagnosis Plan: Mixed hyperlipidemia [...] : I10 06/03/2018 Appointment: Neela Hyman WPtel: [address] [place] [address] [place] FOLLOW UP 06/03/2018 Visit Diagnosis Plan: [...] ICD-10 : J44.9 05/04/2018 Appointment: Gely Harp [address] [place] [address] ACUTE ILLNESS 05/04/2018 Visit Diagnosis Plan: Localized edema Discussion: Cont inue lasix and potassium at every other day Recheck lab and fwup in 3mos Follow Up: 3 months ICD-9 : 782.3 ICD-10 : R60.0 03/03/2018 Appointment: Neela Hyman WPtel: [address] [place] [address] FOLLOW UP 03/03/2018 Patient Education: Patient Medication Summary Completed 03/03/2018 Visit Diagnosis Plan: Localized edema Discussion: Finch ge lasix and potassium to every other day Check Chem 7 in 2 weeks and fwup ICD-9 : 782.3 ICD-10 : R60.0 02/17/2018 Appointment: Neela Hyman WPtel: [address] [place] [address] FOLLOW UP 02/17/2018 Patient Education: Patient Medication [...] R60.0 02/10/2018 Appointment: Neela Hyman WPtel: [phone] [facility] FOLLOW UP 02/10/2018 Patient Education: Patient Medication [...] L02.212 11/05/2017 Appointment: Neela Hyman WPtel: [address] [facility] [place] FOLLOW UP 11/05/2017 Patient Education: Patient Medication Summary Completed 11/05/2017 Patient Education: Patient Medication Summary Completed 11/03/2017 Care Plan: [place] : [address]-1 Pending 11/03/2017 Care Plan: LIPID PANEL LOINC : 20247-5 Pending 11/03/2017 Care Plan: CBC Pending 11/03/2017 Care Plan: A1C HPLC LOINC : 78437-5 Pending 11/03/2017 Visit Diagnosis Plan: Allergic urticaria Discussion: adam batres was placed under fluorescent lamp and showed [...] ICD-10 : L50.0 09/09/2017 Appointment: Gely Harp [address] [place], [place] [address] ACUTE ILLNESS 09/09/2017 Patient Education: Patient Medication [...] ICD-10 : R59.1 08/07/2017 Appointment: Gely Harp [address] [place], [place] [phone] Hospital Follow Up 08/07/2017 Patient Education: Patient Medication Summary Completed 08/07/2017 Visit Diagnosis Plan: Type 2 diabetes mellitus without complications Discussion: Accuchecks daily Lab discussed Continue current meds ICD-9 : 250.00 ICD-10 : E11.9 08/04/2017 Visit Diagnosis Plan: Essential (primary) hypertension Discussion: Increase Cardizem CD to 360mg daily ICD-9 : 401.9 ICD-10 : I10 08/04/2017 Appointment: Neela Hyman WPtel: [phone] [facility] FOLLOW UP 08/04/2017 Patient Education: Patient Medication Summary Completed 08/04/2017 Patient Education: Patient Medication Summary Completed 07/31/2017 Care Plan: [place] : [address]-5 Pending 07/31/2017 Care Plan: ASSAY THYROID STIM HORMONE Pen ding 07/31/2017 Care Plan: LIPID PANEL LOINC : 01748-4 Pending 07/31/2017 Care Plan: CBC Pending 07/31/2017 Care Plan: A1C HPLC LOINC : 87841-4 Pending 07/31/2017 Patient Education: Patient Medication Summary Completed 06/19/2017 Patient Education: Patient Medication Summary Completed 06/09/2017 Care Plan: CT SOFT TISSUE [place] : [address]-3 Pending 06/09/2017 Visit Diagnosis Plan: Acute sialoadenitis [...] ICD-10 : B02.9 06/04/2017 Appointment: Gely Harp [address] [place], [place] [id number] ACUTE ILLNESS 06/04/2017 Patient Education: Patient Medication [...] ICD-10 : B02.9 06/02/2017 Appointment: Gely Harp [address] [place], [place] [id number] ACUTE ILLNESS 06/02/2017 Patient Education: Patient Medication [...] E11.9 05/05/2017 Appointment: Neela Hyman WPtel: [phone] [facility] FOLLOW UP 05/05/2017 Patient Education: Patient Medication Summary Completed 05/05/2017 Patient Education: Patient Medication Summary Completed 05/01/2017 Care Plan: A1C HPLC [facility] : 44737-2 Pending 05/01/2017 Visit Diagnosis Plan: Chronic obstructiv [...] : H61.23 04/10/2017 Appointment: [facility] Harp [address] [facility] AC[facility] ILLNESS 04/10/2017 Patient Education: Patient Medication Summary Completed 04/10/2017 Appointment: Neela Hyman WPtel: [phone] [facility] [place] INJECTION 03/28/2017 Patient Education: Patient Medication [...] : J44.9 02/03/2017 Appointment: Neela Hyman WPtel: [phone] [facility] US FOLLOW UP 02/03/2017 Patient Education: Patient Medication Summary Completed 02/03/2017 Patient Education: Patient Medication Summary Completed 01/30/2017 Care Plan: [place] : 464[address]-3 Pending 01/30/2017 Care Plan: LIPID PANEL LOINC : 08347-6 Pending 01/30/2017 Care Plan: CBC Pending 01/30/2017 Care Plan: A1C HPLC LOINC : 04008-6 Pending 01/30/2017 Care Plan: ASSAY OF PSA [...] E11.65 10/30/2016 Appointment: Neela Hyman WPtel: [facility]0 [facility] [place] 10/29 lm ~sl 10/30 confirmed~sl FOLLOW UP 11/2016 Patient Education: Patient Medication Summary Completed 10/30/2016 Patient Education: Patient Medication Summary Completed 10/24/2016 Visit Diagnosis Plan: Acute bronchitis, unspecified Di scussion: Patient sounds and looks much improved Continue current regimen Keep appt with Dr Levi for Friday Follow up PRN ICD-9 : 466.0 ICD-10 : J20.9 08/30/2016 Appointment: Reinaldo Sammi [address] [facility] / rang and rang rang 08/30 rang [...] ICD-10 : J20.9 08/27/2016 Appointment: Sammi Najera [address] [place], [place] [phone] FOLLOW UP 08/27/2016 Patient Education: Patient Medication Summary Completed 08/27/2016 Care Plan: Referral Order SNOMED-CT : 30 0833691 Pending 08/27/2016 Visit Diagnosis Plan: Type 2 [...] : I10 07/02/2016 Appointment: Neela Hyman WPtel: [address] [place], [place] [address] 07/01 rang and rang`sl FOLLOW UP 7 Patient Education: Patient Medication Summary Completed 07/02/2016 Patient Education: Patient Medication Summary Completed 06/27/2016 Care Plan: LIPID PANEL LOINC : 25642-0 Pending 06/27/2016 Care Plan: [place] : [address]-6 Pending 06/27/2016 Care Plan: A1C HPLC LOINC : 86663-3 Pending 06/27/2016 Visit Diagnosis Plan: Acute bronchitis, [...] ICD-10 : J20.9 06/14/2016 Appointment: Sammi Najera [address] [place], [place] [phone] FOLLOW UP 06/14/2016 Patient Education: Patient Medication [...] ICD-10 : J20.9 06/13/2016 Appointment: Sammi Najera [address] [place], [place] [phone] ACUTE ILLNESS 06/13/2016 Patient Education: Patient Medication Summary Completed 06/13/2016 Care Plan: CHEST X-RAY 2VW FRONTAL&LATL LOINC : 55902-2 Pending 06/13/2016 Visit Plan: Increase metoprolol to 100mg po BID BP readings and BP check in 1month 05/14/2016 Appointment: Neela Hyman WPtel: [address] [place] [address] 05/13 rang and rang`sl FOLLOW UP 6 Patient Education: Patient Medication Summary Completed 05/14/2016 Visit Plan: Increase metoprolol to 50mg BID BP check in 1 week f/u BP appt 2 weeks consider musculoskeletal if pain returns 04/29/2016 Appointment: Neela Hyman WPtel: [address] [place] [address] 04/25 confimred~sl FOLLOW UP 04/29/2016 Patient Education: Patient Medication Summary Completed 04/29/2016 Visit Plan: Stat CT scan of abdomen/pelv is to look for stone Hydrate and use tramadol prn Increase metoprolol to 25mg po BID Will see urology pending CT scan results 04/22/2016 Appointment: Neela Hyman WPtel: [facility]9 [facility] 04/17 confirmed-sp ACUTE ILLNESS 04/22/2016 Patient Education: [...] flu shot 04/01/2016 Appointment: Neela Hyman WPtel: [address] [place] [address] [place] FOLLOW UP 04/01/2016 Patient Education: Patient Medication Summary Completed 04/01/2016 Patient Education: [facility] - Saving AutoInj - 18-64 - Dynamic Heber l ID Completed 04/01/2016 Patient Education: Patient Medication Summary Completed 03/28/2016 Care Plan: A1C HPLC LOINC : 45769-8 Pending 03/28/2016 Care Plan: COMPREH[place] : 85934-3 Pending 03/28/2016 Visit Plan: Lab discussed Continue curre nt meds Accuchecks daily 11/30/2015 Appointment: Neela Hyman WPtel: [facility] 11/28 confirmed~sl FOLLOW UP 11/30/2015 Patient Education: Patient Medication Summary Completed 11/30/2015 Appointment: Neela Hymantel: [facility] [place] RESCHEDULED 11/28/2015 Patient Education: Patient Medication Summary Completed 11/23/2015 Care Plan: [place] : 415[address]-3 Pending 11/23/2015 Care Plan: LIPID PANEL LOINC : 99896-7 Pending 11/23/2015 Care Plan: CBC Pending 11/23/2015 Care Plan: A1C HPLC LOINC : 34231-6 Pending 11/23/2015 Visit Plan: Lab discussed Accuchecks richard ly Continue current meds Cymbalta helping with feet and mood 08/29/2015 Appointment: Neela Hyman WPtel: [address] [place], [place] [phone] FOLLOW UP 08/29/2015 Patient Education: Patient Medication Summary Completed 08/29/2015 Visit Plan: Check CXR Stop all steroids and steroid inhalers Use SVN with but change to duoneb Add singulair for allergy etiology Change fluoxetine to cymbalta 60mg daily Viagra samples given to try prn--warned of no nitrates 08/14/2015 Appointment: Neela Hyman WPtel: [address] [place], [place] [phone] lm to reschedule ~sl 07/27 lm ~sl 08/09 busy 08/10 fer rosales-riley Annual Well Visit 08/14/2015 Patient Education: Patient Medication Summary Completed 08/14/2015 Care Plan: CHEST X-RAY 2VW FRONTAL&LATL LOINC : 72283-5 Ordered 08/14/2015 Visit Plan: Decadron 8mg given [...] as expected 08/09/2015 Appointment: Sammi Najera [address] [facility] ER Follow UP 08/09/2015 Patient Education: Patient Medication Summary Completed 08/09/2015 Patient Education: [facility] - Saving AutoInj - 18-64 - Dynamic [...] with it 05/22/2015 Appointment: Neela Hyman WPtel: [address] [place], [place] [phone] 05/17 confirmed~sl FOLLOW UP 05/22/2015 Patient Education: Patient Medication Summary Completed 05/22/2015 Patient Education: Patient Medication Summary Completed 05/15/2015 Visit Plan: Obtain EMGs done at [place] from when fractured left arm Lab discussed Accuchecks daily 02/13/2015 Appointment: Neela Hyman WPtel: [address] [place] [id number] 02/10 confrimed FOLLOW UP 02/13/2015 Patient Education: Patient Medication Summary Completed 02/13/2015 Patient Education: Patient Medication Summary Completed 02/09/2015 Visit Plan: discussed lab add fenofibrat e 134mg po daily recheck fasting lab in 3 months, CBC, CMP, Lipids, hgb AIC 11/07/2014 Appointment: Neela Hyman WPtel: [address] [place] [id number] 11/04 appt confirmed cn FOLLOW UP 015 Patient Education: Patient Medication Summary Completed 11/07/2014 Patient Education: Patient Medication Summary Completed 11/03/2014 Visit Plan: Continue loratadine 10mg richard ly Notify if symptoms return 10/04/2014 Appointment: Neela Hyman WPtel: [address] [place], [place] [phone] [place] confirmed on 10/03 at 2:42pm FOLLOW UP 09/23 Patient Education: Patient Medication Summary Completed 10/04/2014 Appointment: Neela Hyman WPtel: [address] [place] [address] ACUTE ILLNESS 09/28/2014 Appointment: Loren Garza WPtel: [address] [place] [address] FOLLOW UP 09/22/2014 Patient Education: Patient Medication Summary Completed 09/22/2014 Appointment: Loren Garza WPtel: [address] [place] [address] ACUTE ILLNESS 09/21/2014 Patient Education: Patient Medication Summary Completed 09/21/2014 Patient Education: [facility] - Saving AutoInj - 18+ - Dynamic Portal ID Completed 09/21/2014 Visit Plan: Lab discussed Continue daily accuchecks Continue current meds 06/28/2014 Appointment: Neela Hyman WPtel: [address] [place] [address] FOLLOW UP 06/28/2014 Patient Education: Patient Medication Summary Completed 06/28/2014 Patient Education: Patient Medication Summary Completed 06/23/2014 Appointment: Sarah Sunshine WPtel: [address] [place] [address] ACUTE ILLNESS 06/10/2014 Patient Education: Patient Medication Summary Completed 06/10/2014 Patient Education: [facility] - Saving AutoInj - 18+ - Dynamic Portal ID Completed 06/10/2014 Visit Plan: Lab discussed Continue daily accuchecks Continue current meds 03/29/2014 Appointment: Neela Hyman WPtel: [address] [place] [address] [place] FOLLOW UP 03/29/2014 Patient Education: Patient Medication Summary Completed 03/29/2014 Patient Education: Patient Medication Summary Completed 03/23/2014 Visit Plan: Lab discussed Continue curre nt meds and accuchecks See surgery for removal of hand lesion 11/30/2013 Appointment: Neela Hyman WPtel: [address] [place], [place] [phone] 11/29 no answer FOLLOW UP 11/30/2013 Patient Education: Patient Medication Summary Completed 11/30/2013 Visit Plan: Lab discussed Continue curre nt meds 08/03/2013 Appointment: Neela Hyman WPtel: [address] [place], [place] [phone] FOLLOW UP 08/03/2013 Patient Education: Patient Medication Summary Completed 08/03/2013 Visit Plan: Lab Discussed Will continue current meds and pt will get back on diet/exercise Check lab in 4mos and fwup 04/06/2013 Appointment: Neela Hyman WPtel: [address] [place], [place] [phone] FOLLOW UP 04/06/2013 Patient Education: Patient Medication Summary Completed 04/06/2013 Visit Plan: Lab discussed Continue daily accuchecks 12/01/2012 Appointment: Neela Hyman WPtel: [address] [place], [place] [phone] 11/30 no answer FOLLOW UP 12/01/2012 Patient Education: Patient Medication Summary Completed 12/01/2012 Visit Plan: Continue current meds and da russell accuchecks Lab discussed 08/04/2012 Appointment: Neela Hyman WPtel: [address] [place], [place] [phone] FOLLOW UP 08/04/2012 Patient Education: Patient Medication Summary Completed 08/04/2012 Appointment: Neela Hyman WPtel: [address] [place], [place] [phone] UA 06/01/2012 Patient Education: Patient Medication Summary Completed 06/01/2012 Appointment: Janet Jean Baptiste WPtel: [address] [place], [place] [phone] [place] FOLLOW UP 05/29/2012 Patient Education: Patient Medication Summary Completed 05/29/2012 Visit Plan: pt states Dr. Hyman told h is to increase his Prozac dose while she was talking to her at [facility]. Discussed that pt. should not increase or decrease dosage without Dr's knowledge. Pt. will seek hearing test here in town at the hearing aid place on [address]. Discussed that ear pain is likely caused by sinus pressure. Pt. will notify if no improvement. 05/25/2012 Appointment: Janet Jean Baptiste WPtel: [address] [place] [address] ACUTE ILLNESS 05/25/2012 Patient Education: Patient Medication Summary Completed 05/25/2012 Visit Plan: Continue current meds Contin ue daily accuchecks but alternate times Increase fish oil to 3gm daily 04/07/2012 Appointment: Neela Hyman WPtel: [address] [place] [address] 04/06 FOLLOW UP 04/07/2012 Patient Education: Patient Medication Summary Completed 04/07/2012 Appointment: Janet Jean Baptiste WPtel: [address] [place] [address] ACUTE ILLNESS 12/16/2011 Patient Education: Patient Medication Summary Completed 12/16/2011 Visit Plan: Increase 12/03/2011 Appointment: Neela Hyman WPtel: [address] [place], [place] [address] FOLLOW UP 12/03/2011 Patient Education: Patient Medication Summary Completed 12/03/2011 Visit Plan: Continue current meds Contin ue accuchecks 08/29/2011 Appointment: Neela Hyman WPtel: [address] [place], [place] [phone] FOLLOW UP 08/29/2011 Patient Education: Patient Medication Summary Completed 08/29/2011 Visit Plan: Continue current meds except restart zocor 05/30/2011 Appointment: Neela Hyman WPtel: [address] [place], [place] [phone] FOLLOW UP 05/30/2011 Patient Education: Patient Medication Summary Completed 05/30/2011 Visit Plan: Continue tennis elbow strap May go back to weight-lifing--light weigts every other day 01/29/2011 Appointment: Neela Hyman WPtel: [address] [place], [place] [phone] FOLLOW UP 01/29/2011 Patient Education: Patient Medication Summary Completed 01/29/2011 Visit Plan: Continue tennis elbow strap and anti-inflammatories 01/14/2011 Appointment: Neela Hyman WPtel: [address] [place] [address] FOLLOW UP 01/14/2011 Appointment: Janet Jean Baptiste WPtel: [address] [place], [place] [phone] NEW PATIENT 01/14/2011 Patient Education: Patient Medication Summary Completed 01/14/2011 Appointment: Neela Hyman WPtel: [address] [place] [address] FOLLOW UP 01/08/2011 Appointment: Neela Hyman WPtel: [address] [place], [place] [phone] FOLLOW UP 01/01/2011 Appointment: Neela Hyman WPtel: [address] [place] [address] UA 01/01/2011 Patient Education: Patient Medication Summary [...] given. 11/29/2010 Appointment: Janet Jean Baptiste WPtel: [address] [place], [place] [phone] ACUTE ILLNESS 11/29/2010 Patient Education: Patient Medication Summary Completed 11/29/2010 Visit Plan: Cont current meds Check CMP, Lipids, HbA1C 08/28/2010 Appointment: Neela Hyman WPtel: [address] [place], [place] [phone] FOLLOW UP 08/28/2010 Patient Education: Patient Medication Summary Completed 08/28/2010 Visit Plan: Cont current meds and accuch ecks Add Zocor 40mg q HS Check Lipids and HbA1C in 3mos 06/05/2010 Appointment: Neela Hyman WPtel: [address] [place] [address] [place] FOLLOW UP 06/05/2010 Patient Education: Patient Medication Summary Completed 06/05/2010 Visit Plan: Check Lipids and HbA1C 02/05/2010 Appointment: Neela Hyman WPtel: [address] [place] [address] FOLLOW UP 02/05/2010 Patient Education: Patient Medication Summary Completed 02/05/2010 Visit Plan: HbA1C in 3mos. Continue Accu checks BID alternating times. Check HbA1C, CMP, Lipids 10/09/2009 Appointment: Neela Hyman WPtel: [address] [place] [address] FOLLOW UP 10/09/2009 Patient Education: Patient Medication Summary Completed 10/09/2009 Visit Plan: Saline nasal flushes prn. Ty lenol/Motrin prn headache. Notify if persists/symptoms worsening. 08/22/2009 Appointment: Neela Hyman WPtel: [address] [place], [place] [phone] ACUTE ILLNESS 08/22/2009 Patient Education: Patient Medication Summary Completed 08/22/2009 Referral: Aubrey Rand WPtel: [address] [place], [place] [phone] [place] Office will verfy his insurance then they will contact patient Completed Referral: Shahbaz Brennan WPtel: [address] [facility] 201 [id number] [place] Referral Completed Referral: Ion Levi [address] [facility] C&D [id number] [place] Referral Appointment Requested Referral: Ion Levi [address] C&D [id number] [place] Referral Appointment Requested Instructions Comment . [...] with it . Obtain EMGs done at [place] from when fractured left arm Lab discussed [...] while she was talking to her at [facility]. Discussed that pt. should not increase or decrease dosage without Dr's knowledge. Pt. will seek hearing test here in town at the hearing aid place on [address]. Discussed that ear pain is likely caused [...]
--- OUTSIDE RECORDS SUMMARY | 2019-12-09 09:00 | XMS REPORT | CCD ---
Author Author Michael Hyman D.O. Organization [facility] Address [address] [place] [address] Phone Care Team Providers Care Director Oracle Database Name Role Phone Neela Hyman D.O., PP Unavailable CCM Unavailable Summary Purpose Interface Exchange Insurance Providers Payer name Policy type / Coverage type Covered republican ID Effective Begin Date Effective End Date ABS FOR [employer] [id number] Unknown Family History Family History data not found Social History Social History Element Codes Description Effective Dates Marital status Unknown 05/30/[address]: 6977929 Former smoker quit 25 years ago 01/01/2011 [...] Instructions fenofibrate micronized 134 mg capsule RxNorm: 165773 1 Capsule( s) Oral QD 09/22/2019 03/20/2020 Active metformin 500 mg tablet RxNorm: 177828 2 Tablet(s) Oral two afshan es a day 09/22/2019 12/20/2019 Active Lasix 40 mg tablet RxNorm: 361317 1 Tablet(s) Oral QD 08/24/201910/25 Active duloxetine 60 mg capsule,delayed release RxNorm: 545751 TAKE ONE CAPSULE BY MOUTH EVERY DAY 08/16/2019 02/11/2020 Active metoprolol succinate ER 100 mg tablet,extended release 24 hr RxNorm: 022168 TAKE ONE TABLET BY MOUTH TWICE A DAY 08/16/2019 05/11/2020 Active potassium chloride ER 20 mEq tablet,extended release RxNorm: 752649 1 Tablet(s) Oral two times a day 07/22/2019 10/19/2019 Active metformin 500 mg tablet RxNorm: 100424 2 Tablet(s) Oral two afshan es a day 07/13/2019 09/21/2019 Inactive Singulair 10 mg tablet RxNorm: 505423 TAKE ONE TABLET BY MOUTH EVERY EVENING 07/06/2019 01/02/2020 Active Reselected prescribe r from PEG GUNNAR to [facility] Keflex 500 mg capsule RxNorm: 640673 1 Capsule(s) Oral three ti mes a day 07/06/2019 07/13/2019 Inactive Singulair 10 mg tablet RxNorm: 431305 TAKE ONE TABLET BY MOUTH EVERY EVENING 06/22/2019 07/05/2019 Inactive Reselected prescribe r from PEG MAHER to [facility] Zocor 40 mg tablet RxNorm: 201919 TAKE ONE TABLET BY M OUTH EVERY NIGHT AT BEDTIME 06/21/2019 11/17/2019 Active MagOx 400 mg (241.3 mg magnesium) tablet RxNorm: 441198 1 Table t(s) Oral QD 06/21/2019 08/20/2019 Inactive diltiazem ER 360 mg capsule,24 hr,extended release RxNorm: 8 36515 TAKE ONE CAPSULE BY MOUTH AT BEDTIME -REPLACES 300MG 05/17/2019 11/12/2019 Active MagOx 400 mg (241.3 mg magnesium) tablet RxNorm: 304292 1 Table t(s) Oral QD 04/26/2019 06/20/2019 Inactive Lasix 40 mg tablet RxNorm: 197240 40 MG PO DAILY 04/12/2019 08/23/2019 Inactive Benicar 40 mg tablet RxNorm: 604940 1 Tablet(s) Oral QD 03/29/2019 Active potassium chloride ER 20 mEq tablet,extended release RxNorm: 033115 1 Tablet(s) Oral two times a day 03/29/2019 06/27/2019 Inactive potassium chloride ER 20 mEq tablet,extended release RxNorm: 116074 1 Tablet(s) Oral QD 03/29/2019 03/28/2019 Inactive Benicar 40 mg tablet RxNorm: 629792 1 Tablet(s) Oral QD 03/29/2019 Inactive MagOx 400 mg (241.3 mg magnesium) tablet RxNorm: 913933 1 Table t(s) Oral QD 03/29/2019 04/25/2019 Inactive metformin 500 mg tablet RxNorm: 919289 2 Tablet(s) Oral two afshan es a day 03/29/2019 07/12/2019 Inactive fenofibrate micronized 134 mg capsule RxNorm: 778909 TA KE ONE CAPSULE BY MOUTH EVERY DAY 03/05/2019 09/21/2019 Inactive duloxetine 60 mg capsule,delayed release RxNorm: 901718 1 Capsu le(s) PO QD 01/28/2019 07/26/2019 Inactive Trelegy Ellipta 100 mcg-62.5 mcg-25 mcg powder for inhalatio n RxNorm: 9774033 1 Puff(s) INH QD 01/06/2019 12/31/2019 Active 90 day supply prednisone 20 mg tablet RxNorm: 633566 1 Tablet(s) PO T ID for 3 days then 1 po BID for 3 days then 1 po daily for 3 days 01/05/2019 03/28/2019 Inacti ve metformin ER 1,000 mg tablet,extended release 24hr RxNorm: 1 027038 TAKE TWO TABLETS (1000MG) BY MOUTH TWO TIMES A DAY 12/22/2018 07/13/2019 Inacti ve Diflucan 100 mg tablet RxNorm: 598492 1 Tablet(s) PO QD 12/09/2018 Inactive prednisone 20 mg tablet RxNorm: 379244 1 Tablet(s) PO B ID for 4 days then 1 po daily for 4 days 11/24/2018 01/04/2019 Inactive albuterol sulfate 2.5 mg/3 mL (0.083 %) solution for n ebulization RxNorm: 846953 3 Milliliter(s) INH ONE VIAL VIA NEBULIZER EVERY 4 HOURS 07/21/2019 Inactive [AttnRPh: Saving apply/adjudicate RxGRP: SG20 RxBIN:[id number] RxPCN: ID#:[id number]] Trelegy Ellipta 100 mcg-62.5 mcg-25 mcg powder for inhalatio n RxNorm: 5535314 1 Puff(s) INH QD 10/27/2018 01/06/2019 Inactive 90 day supply diltiazem ER 360 mg capsule,24 hr,extended release RxNorm: 8 23959 TAKE ONE CAPSULE BY MOUTH AT BEDTIME -REPLACES 300MG 10/13/2018 04/10/2019 Inactive metoprolol succinate ER 100 mg tablet,extended release 24 hr RxNorm: 657029 TAKE ONE TABLET BY MOUTH TWICE A DAY 10/13/2018 07/09/2019 Inactive Trelegy Ellipta 100 mcg-62.5 mcg-25 mcg powder for inhalatio n RxNorm: 0374234 INHALE ONE PUFF ONCE DAILY 09/07/2018 10/27/2018 Inactive Levaquin 750 mg tablet RxNorm: 628192 1 Tablet(s) PO QD 09/07/2018 Inactive Levaquin 750 mg tablet RxNorm: 453978 1 Tablet(s) PO QD 09/07/2018 Inactive prednisone 20 mg tablet RxNorm: 610727 2 Tablet(s) PO QAM 08/13/2018 08/19/2018 Inactive Levaquin 500 mg tablet RxNorm: 935637 1 Tablet(s) PO QD 08/11/2018 Inactive fenofibrate micronized 134 mg capsule RxNorm: 747087 TA KE ONE CAPSULE BY MOUTH EVERY DAY 08/10/2018 02/05/2019 Inactive prednisone 20 mg tablet RxNorm: 600114 1 Tablet(s) PO BID 07/16/2018 07/20/2018 Inactive doxycycline hyclate 100 mg capsule RxNorm: 8727961 1 Capsule(s) PO BID 07/13/2018 07/22/2018 Inactive duloxetine 60 mg capsule,delayed release RxNorm: 071173 TAKE ONE CAPSULE BY MOUTH ONCE A DAY 07/08/2018 01/28/2019 Inactive Lasix 40 mg tablet RxNorm: 875615 1 TABLET(S) PO QAM 06/08/201809/05 Inactive potassium chloride ER 20 mEq tablet,extended release(p art/cryst) RxNorm: 8752037 1 TABLET(S) PO QD 06/08/2018 09/05/2018 Inactive metformin ER 1,000 mg tablet,extended release 24hr RxNorm: 1 893591 TAKE TWO TABLETS (1000MG) BY MOUTH TWO TIMES A DAY 06/01/2018 11/27/2018 Inacti ve Benicar HCT 40 mg-25 mg tablet RxNorm: 349808 TAKE ONE TABLET BY MOUTH ONCE DAILY 05/11/2018 03/28/2019 Inactive Zocor 40 mg tablet RxNorm: 629600 TAKE ONE TABLET BY M OUTH EVERY NIGHT AT BEDTIME 05/11/2018 06/20/2019 Inactive Trelegy Ellipta 100 mcg-62.5 mcg-25 mcg powder for inhalatio n RxNorm: 8163348 1 PUFF(S) INH QD 04/06/2018 07/04/2018 Inactive diltiazem ER 360 mg capsule,24 hr,extended release RxNorm: 8 76656 1 Capsule(s) PO QHS replaces 300mg dose 03/30/2018 09/25/2018 Inactive Trelegy Ellipta 100 mcg-62.5 mcg-25 mcg powder for inhalatio n RxNorm: 3963976 1 Puff(s) INH QD 02/24/2018 02/23/2018 Inactive Trelegy Ellipta 100 mcg-62.5 mcg-25 mcg powder for inhalatio n RxNorm: 5659933 1 Puff(s) INH QD 02/24/2018 02/23/2018 Inactive Trelegy Ellipta 100 mcg-62.5 mcg-25 mcg powder for inhalatio n RxNorm: 3520151 1 Puff(s) INH QD 02/24/2018 04/05/2018 Inactive Lasix 40 mg tablet RxNorm: 725129 1 Tablet(s) PO QAM 02/10/201803/11 Inactive potassium chloride ER 20 mEq tablet,extended release(p art/cryst) RxNorm: 9983559 1 Tablet(s) PO QD 02/10/2018 03/11/2018 Inactive fenofibrate micronized 134 mg capsule RxNorm: 261141 1 Capsule( s) PO QD 01/30/2018 07/28/2018 Inactive metoprolol succinate ER 100 mg tablet,extended release 24 hr RxNorm: 576995 TAKE ONE TABLET BY MOUTH TWICE A DAY 12/30/2017 09/25/2018 Inactive metformin ER 1,000 mg tablet,extended release 24hr RxNorm: 1 787372 1 Tablet(s) PO BID 11/17/2017 05/15/2018 Inactive [SAVINGS FOR NON -COVERED DRUGS -- BIN:258724, PCN: ASPROD1, Group: XXXXX, ID# [id number], Questions: . THIS IS NOT INSURANCE.] Benicar HCT 40 mg-25 mg tablet RxNorm: 330541 1 Tablet(s) PO QD 05/10/2018 Inactive [SAVINGS FOR NON-COVERED JESU GS -- BIN:073275, PCN: ASPROD1, Group: XXXXX, ID# [id number], Questions: . THIS IS NOT INSURANCE.] Bactroban 2 % topical cream RxNorm: 349261 Application TOP BID 10/2409/02/2018 Inactive clindamycin HCl 300 mg capsule RxNorm: 867873 2 Capsule(s) PO TID 0 11/05/2017 11/18/2017 Inactive duloxetine 60 mg capsule,delayed release RxNorm: 581028 Capsule(s) TAKE ONE CAPSULE BY MOUTH ONCE DAILY 09/24/2017 09/23/2017 Inactive triamcinolone acetonide 0.1 % topical ointment RxNorm: 5664292 1 TOP BID 09/09/2017 11/04/2017 Inactive Bactrim DS 800 mg-160 mg tablet RxNorm: 333291 1 Tablet(s) PO BID 0 08/07/2017 08/13/2017 Inactive metronidazole 500 mg tablet RxNorm: 618193 1 Tablet(s) PO BID 08/0708/13/2017 Inactive diltiazem ER 360 mg capsule,24 hr,extended release RxNorm: 8 47778 1 Capsule(s) PO QHS replaces 300mg dose 08/04/2017 01/30/2018 Inactive fenofibrate micronized 134 mg capsule RxNorm: 691890 1 Capsule( s) PO QD 07/21/2017 01/30/2018 Inactive Zocor 40 mg tablet RxNorm: 829391 1 Tablet(s) PO QHS 07/21/201705/10 Inactive GB duloxetine 60 mg capsule,delayed release RxNorm: 699721 Capsule(s) TAKE ONE CAPSULE BY MOUTH ONCE DAILY 06/24/2017 09/24/2017 Inactive Cleocin HCl 300 mg capsule RxNorm: 143780 2 Capsule(s) PO BID 06/0206/08/2017 Inactive acyclovir 800 mg tablet RxNorm: 327468 1 Tablet(s) PO 5x day 201706/08/2017 Inactive diltiazem ER 300 mg capsule,24 hr,extended release RxNorm: 8 83269 1 Capsule(s) PO QHS replaces 240mg dose 05/05/2017 08/03/2017 Inactive ipratropium-albuterol 0.5 mg-3 mg(2.5 mg base)/3 mL ne bulization soln RxNorm: 5694691 1 Unit Dose INH Q4H as needed 05/05/2017 01/04/2019 Inactive metformin ER 1,000 mg tablet,extended release 24hr RxNorm: 1 566180 1 Tablet(s) PO BID 04/28/2017 11/17/2017 Inactive [SAVINGS FOR NON -COVERED DRUGS -- BIN:193306, PCN: ASPROD1, Group: XXXXX, ID# [id number], Questions: . THIS IS NOT INSURANCE.] diltiazem ER (XR/XT) 240 mg capsule,extended release 2 4 hr, controlled RxNorm: 775146 TAKE ONE CAPSULE BY MOUTH EVERY DAY 04/15/2017 05/04/2017 Inact avani prednisone 20 mg tablet RxNorm: 134028 1 Tablet(s) PO QD 04/10/2017 1 06/14/2016 Inactive Breo Ellipta 200 mcg-25 mcg/dose powder for inhalation RxNor m: 3813831 1 Puff(s) INH QD 04/10/2017 02/09/2018 Inactive Breo Ellipta 200 mcg-25 mcg/dose powder for inhalation RxNor m: 2363033 1 Puff(s) INH QD 04/10/2017 04/09/2017 Inactive Levaquin 500 mg tablet RxNorm: 514139 1 Tablet(s) PO QD 04/10/2017 Inactive metoprolol succinate ER 100 mg tablet,extended release 24 hr RxNorm: 228420 TAKE ONE TABLET BY MOUTH TWICE A DAY 03/24/2017 12/18/2017 Inactive fenofibrate micronized 134 mg capsule RxNorm: 839400 1 Capsule( s) PO QD 01/16/2017 07/21/2017 Inactive Benicar HCT 40 mg-25 mg tablet RxNorm: 128289 1 Tablet(s) PO QD 11/17/2017 Inactive [SAVINGS FOR NON-COVERED JESU GS -- BIN:060634, PCN: ASPROD1, Group: XXXXX, ID# [id number], Questions: . THIS IS NOT INSURANCE.] metoprolol succinate ER 100 mg tablet,extended release 24 hr RxNorm: 733360 1 Tablet(s) PO BID 10/16/2016 03/23/2017 Inactive diltiazem ER (XR/XT) 240 mg capsule,extended release 2 4 hr, controlled RxNorm: 505176 1 Capsule(s) PO QD 10/16/2016 04/13/2017 Inactive [SAVINGS FOR NON- COVERED DRUGS -- BIN:841110, PCN: ASPROD1, Group: XXXXX, ID# [id number], Questions: . THIS IS NOT INSURANCE.] metformin ER 1,000 mg tablet,extended release 24hr RxNorm: 8 66314 1 Tablet(s) PO BID 10/16/2016 04/28/2017 Inactive [SAVINGS FOR NON -COVERED DRUGS -- BIN:980558, PCN: ASPROD1, Group: XXXXX, ID# [id number], Questions: . THIS IS NOT INSURANCE.] Zocor 40 mg tablet RxNorm: 319277 1 Tablet(s) PO QHS 10/16/201607/21 Inactive GB Singulair 10 mg tablet RxNorm: 713286 Tablet(s) 1 TABLET(S) PO QHS 08/27/2016 09/02/2018 Inactive prednisone 20 mg tablet RxNorm: 380259 1 Tablet(s) PO QD 08/27/2016 0 08/31/2016 Inactive ipratropium-albuterol 0.5 mg-3 mg(2.5 mg base)/3 mL ne bulization soln RxNorm: 8370787 1 Unit Dose INH Q4H as needed 08/27/2016 05/04/2017 Inactive metoprolol succinate ER 100 mg tablet,extended release 24 hr RxNorm: 641690 TAKE ONE TABLET BY MOUTH TWICE A DAY 08/05/2016 10/16/2016 Inactive duloxetine 60 mg capsule,delayed release RxNorm: 368479 TAKE ONE CAPSULE BY MOUTH ONCE DAILY 08/05/2016 06/24/2017 Inactive prednisone 20 mg tablet RxNorm: 540551 1 Tablet(s) PO QD 06/14/2016 0 06/18/2016 Inactive ipratropium-albuterol 0.5 mg-3 mg(2.5 mg base)/3 mL ne bulization soln RxNorm: 3242926 1 Unit Dose INH Q4H as needed 06/13/2016 08/26/2016 Inactive Levaquin 500 mg tablet RxNorm: 731752 1 Tablet(s) PO QD 06/13/2016 Inactive metoprolol succinate ER 100 mg tablet,extended release 24 hr RxNorm: 758333 1 Tablet(s) PO BID replaces 50mg dose 05/14/2016 07/12/2016 Inactive metoprolol succinate ER 50 mg tablet,extended release 24 hr RxNorm: 056829 1 Tablet(s) PO BID 04/29/2016 05/13/2016 Inactive prednisone 20 mg tablet RxNorm: 521516 1 Tablet(s) PO BID 04/22/2016 04/21/2016 Inactive prednisone 20 mg tablet RxNorm: 975641 1 Tablet(s) PO BID 04/22/2016 04/28/2016 Inactive Singulair 10 mg tablet RxNorm: 975466 Tablet(s) 1 TABLET(S) PO QHS 04/01/2016 08/26/2016 Inactive metoprolol succinate ER 25 mg tablet,extended release 24 hr RxNorm: 226135 1 Tablet(s) PO QHS for blood pressure 04/01/2016 05/13/2016 Inactive fenofibrate micronized 134 mg capsule RxNorm: 859552 TA KE ONE CAPSULE BY MOUTH DAILY 01/25/2016 01/16/2017 Inactive duloxetine 60 mg capsule,delayed release RxNorm: 651415 TAKE ONE CAPSULE BY MOUTH ONCE DAILY 01/25/2016 08/04/2016 Inactive Zocor 40 mg tablet RxNorm: 906543 TAKE ONE TABLET BY MOUTH AT B EDTIME 11/13/2015 10/16/2016 Inactive GB metformin ER 1,000 mg tablet,extended release 24hr RxNorm: 8 47147 1 Tablet(s) PO BID 10/26/2015 10/16/2016 Inactive [SAVINGS FOR NON -COVERED DRUGS -- BIN:437798, PCN: ASPROD1, Group: XXXXX, ID# [id number], Questions: . THIS IS NOT INSURANCE.] Benicar HCT 40 mg-25 mg tablet RxNorm: 497662 1 Tablet(s) PO QD 06/201511/11/2016 Inactive [SAVINGS FOR NON-COVERED JESU GS -- BIN:541647, PCN: ASPROD1, Group: XXXXX, ID# [id number], Questions: . THIS IS NOT INSURANCE.] diltiazem ER (XR/XT) 240 mg capsule,extended release,control led RxNorm: 306099 1 Capsule(s) PO QD 10/26/2015 10/15/2016 Inactive [SAVINGS FOR NO N-COVERED DRUGS -- BIN:823202, PCN: ASPROD1, Group: XXXXX, ID# [id number], Questions: . THIS IS NOT INSURANCE.] Singulair 10 mg tablet RxNorm: 951400 1 TABLET(S) PO QHS 09/18/2015 1 05/31/2015 Inactive Viagra 100 mg tablet RxNorm: 365813 1 Tablet(s) PO as needed 201511/23/2018 Inactive Singulair 10 mg tablet RxNorm: 068662 1 Tablet(s) PO QHS 08/16/2015 0 08/15/2015 Inactive Singulair 10 mg tablet RxNorm: 139603 1 Tablet(s) PO QHS 08/16/2015 0 09/14/2015 Inactive duloxetine 60 mg capsule,delayed release RxNorm: 023611 1 Capsule(s) PO QD replaces fluoxetine 08/14/2015 01/24/2016 Inactive ipratropium-albuterol 0.5 mg-3 mg(2.5 mg base)/3 mL ne bulization soln RxNorm: 7756770 1 Unit Dose INH Q4H as needed 08/14/2015 06/12/2016 Inactive prednisone 20 mg tablet RxNorm: 761008 Take 3 tabs PO o nce daily x 3 days, then 2 tabs PO once daily x 3 days and then 1 tab PO once daily x 3 days 08/09/2015 08/13/2015 Inactive Symbicort 160 mcg-4.5 mcg/actuation HFA aerosol inhaler RxNo rm: 9354139 2 Puff(s) INH BID 08/09/2015 08/13/2015 Inactive Zocor 40 mg tablet RxNorm: 894207 1 Tablet(s) PO QHS 05/23/201511/11 Inactive [AttnRPh: Saving apply/adjudicate RxGRP: SG20 RxBIN:[id number] RxPCN: ID#:[id number]] Benicar HCT 40 mg-25 mg tablet RxNorm: 716675 1 Tablet(s) PO QD 10/26/2015 Inactive [SAVINGS FOR NON-COVERED JESU GS -- BIN:348198, PCN: ASPROD1, Group: XXXXX, ID# [id number], Questions: . THIS IS NOT INSURANCE.] diltiazem ER (XR/XT) 240 mg capsule,extended release,control led RxNorm: 778593 1 Capsule(s) PO QD 04/24/2015 10/20/2015 Inactive [SAVINGS FOR NO N-COVERED DRUGS -- BIN:171108, PCN: ASPROD1, Group: XXXXX, ID# [id number], Questions: . THIS IS NOT INSURANCE.] fluoxetine 40 mg capsule RxNorm: 912062 1 Capsule(s) PO QD 04/24/20 15 08/13/2015 Inactive [SAVINGS FOR NON-COVERED JESU GS -- BIN:384532, PCN: ASPROD1, Group: XXXXX, ID# [id number], Questions: . THIS IS NOT INSURANCE.] Zocor 40 mg tablet RxNorm: 243238 TABLET(S) 1 TABLET(S) PO QHS 01/2505/23/2015 Inactive [AttnRPh: Saving apply/adjud icate RxGRP:SG20 RxBIN:[id number] RxPCN:HT ID#:[id number]] metformin ER 1,000 mg tablet,extended release 24hr RxNorm: 8 91814 1 TABLET(S) PO BID 01/29/2015 10/26/2015 Inactive [SAVINGS FOR NON -COVERED DRUGS -- BIN:612576, PCN: ASPROD1, Group: XXXXX, ID# XXXXXXX, Questions: . THIS IS NOT INSURANCE.] fenofibrate micronized 134 mg capsule RxNorm: 455165 1 CAPSULE( S) PO QD 01/23/2015 01/17/2016 Inactive fenofibrate micronized 134 mg capsule RxNorm: 628782 1 Capsule( s) PO QD 11/07/2014 01/22/2015 Inactive diltiazem ER (XR/XT) 240 mg capsule,extended release,control led RxNorm: 224444 1 Capsule(s) PO QD 10/24/2014 04/24/2015 Inactive [SAVINGS FOR NO N-COVERED DRUGS -- BIN:109174, PCN: ASPROD1, Group: XXXXX, ID# XXXXXXX, Questions: . THIS IS NOT INSURANCE.] Benicar HCT 40 mg-25 mg tablet RxNorm: 802125 1 Tablet(s) PO QD 05/201404/24/2015 Inactive [SAVINGS FOR NON-COVERED JESU GS -- BIN:206259, PCN: ASPROD1, Group: XXXXX, ID# [id number], Questions: . THIS IS NOT INSURANCE.] fluoxetine 40 mg capsule RxNorm: 714593 1 Capsule(s) PO QD 10/25/1904/24/2015 Inactive [SAVINGS FOR NON-COVERED JESU GS -- BIN:840711, PCN: ASPROD1, Group: XXXXX, ID# [id number], Questions: . THIS IS NOT INSURANCE.] azithromycin 500 mg tablet RxNorm: 819901 1 Tablet(s) PO QD 015 09/27/2014 Inactive [SAVINGS FOR NON-COVERED JESU GS -- BIN:510724, PCN: ASPROD1, Group: XXXXX, ID# XXXXXXX, Questions: . THIS IS NOT INSURANCE.] albuterol sulfate 2.5 mg/3 mL (0.083 %) solution for n ebulization RxNorm: 597827 3 Milliliter(s) INH ONE VIAL VIA NEBULIZER EVERY 4 HOURS 015 11/19/2014 Inactive [AttnRPh: Saving apply/adjudicate RxGRP: SG20 RxBIN:[id number] RxPCN: ID#:[id number]] Zocor 40 mg tablet RxNorm: 416178 TABLET(S) 1 TABLET(S ) PO QHS 1 TABLET(S) PO QHS 09/04/2014 02/21/2015 Inactive [AttnRPh: Saving apply/adjudicate RxGRP:SG20 RxBIN:[id number] RxPCN: ID#:[id number]] metformin ER 1,000 mg tablet,extended release 24hr RxNorm: 8 19299 1 Tablet(s) PO BID 08/04/2014 01/28/2015 Inactive [SAVINGS FOR NON -COVERED DRUGS -- BIN:106476, PCN: ASPROD1, Group: XXXXX, ID# XXXXXXX, Questions: . THIS IS NOT INSURANCE.] Bromfed DM 2 mg-30 mg-10 mg/5 mL syrup RxNorm: 8026734 1 -2 Teaspoon(s) PO Q4H as needed for cough 06/10/2014 06/19/2014 Inactive [SAVINGS FOR UN INSURED PATIENTS -- BIN:236527, PCN: ASPROD1, Group: AME08, ID# [id number], Process claim through [employer], for questions: . THIS IS NOT INSURANCE.] Augmentin 875 mg-125 mg tablet RxNorm: 907185 1 Tablet(s) PO Q12H 0 06/10/2014 06/19/2014 Inactive [AttnRPh: Saving apply/adjud icate RxGRP:SG20 RxBIN:[id number] RxPCN:HT ID#:[id number]] Zocor 40 mg tablet RxNorm: 676425 Tablet(s) 1 TABLET(S ) PO QHS 1 TABLET(S) PO QHS 05/25/2014 08/22/2014 Inactive [AttnRPh: Saving apply/adjudicate RxGRP:SG20 RxBIN:[id number] RxPCN:HT ID#:[id number]] fluoxetine 40 mg capsule RxNorm: 487162 1 Capsule(s) PO QD 04/29/20 14 10/24/2014 Inactive [AttnRPh: Saving apply/adjud icate RxGRP:SG20 RxBIN:[id number] RxPCN:HT ID#:[id number]] diltiazem ER (XR/XT) 240 mg capsule,extended release,control led RxNorm: 650554 1 Capsule(s) PO QD 04/29/2014 10/24/2014 Inactive [AttnRPh: Leonelin g apply/adjudicate RxGRP:SG20 RxBIN:[id number] RxPCN:HT ID#:[id number]] Benicar HCT 40 mg-25 mg tablet RxNorm: 603747 1 Tablet(s) PO QD 09/201310/24/2014 Inactive [AttnRPh: Saving apply/adjud icate RxGRP:SG20 RxBIN:[id number] RxPCN:HT ID#:[id number]] Zocor 40 mg tablet RxNorm: 850217 1 TABLET(S) PO QHS 1 TABLET(S ) PO QHS 03/07/2014 05/25/2014 Inactive [AttnRPh: Saving chelsie ly/adjudicate RxGRP:SG20 RxBIN:[id number] RxPCN:HT ID#:[id number]] Zocor 40 mg tablet RxNorm: 623001 1 Tablet(s) PO QHS 1 TABLET(S ) PO QHS 12/06/2013 03/05/2014 Inactive [AttnRPh: Saving chelsie ly/adjudicate RxGRP:SG20 RxBIN:[id number] RxPCN:HT ID#:[id number]] diltiazem ER (XR/XT) 240 mg capsule,extended release,control led RxNorm: 370134 1 Capsule(s) PO QD 10/25/2013 04/22/2014 Inactive [AttnRPh: Savin g apply/adjudicate RxGRP:SG20 RxBIN:[id number] RxPCN:HT ID#:[id number]] fluoxetine 40 mg capsule RxNorm: 873036 1 Capsule(s) PO QD 10/26/19 14 04/22/2014 Inactive [AttnRPh: Saving apply/adjud icate RxGRP:SG20 RxBIN:[id number] RxPCN:HT ID#:[id number]] Zocor 40 mg tablet RxNorm: 572438 1 Tablet(s) PO QHS 1 TABLET(S ) PO QHS 09/13/2013 12/06/2013 Inactive metformin ER 1,000 mg tablet,extended release 24hr RxNorm: 8 66988 Tablet(s) PO TAKE 1 TABLET BY MOUTH TWICE DAILY (REPLACES 500MG DOSE) 07/26/201303/2015 Inactive diltiazem ER (XR/XT) 240 mg capsule,extended release,control led RxNorm: 159330 1 Capsule(s) PO QD 05/03/2013 10/25/2013 Inactive fluoxetine 40 mg capsule RxNorm: 040246 1 Capsule(s) PO QD 05/03/20 13 10/25/2013 Inactive Benicar HCT 40 mg-25 mg tablet RxNorm: 067607 1 Tablet(s) PO QD 01/201304/29/2014 Inactive Zocor 40 mg tablet RxNorm: 107909 1 Tablet(s) PO QHS 12/10/201209/13 Inactive fluoxetine 40 mg capsule RxNorm: 776761 1 Capsule(s) PO QD 11/10/19 13 05/03/2013 Inactive diltiazem ER (XR/XT) 240 mg capsule,extended release,control led RxNorm: 934031 1 Capsule(s) PO QD 11/09/2012 05/03/2013 Inactive Benicar HCT 40 mg-25 mg tablet RxNorm: 209492 1 Tablet(s) PO QD 05/03/2013 Inactive metformin ER 1,000 mg tablet,extended release 24hr RxNorm: 8 41360 Tablet(s) PO TAKE 1 TABLET BY MOUTH TWICE DAILY (REPLACES 500MG DOSE) 08/05/201206/2013 Inactive Zocor 40 mg tablet RxNorm: 074367 1 Tablet(s) PO QHS 06/15/201212/09 Inactive fluoxetine 40 mg capsule RxNorm: 757744 1 Capsule(s) PO QD 05/15/20 12 11/08/2012 Inactive Neurontin 600 mg Tab RxNorm: 816916 1 Tablet(s) PO QHS 12/03/2011 Inactive metformin ER 1,000 mg tablet,extended release 24hr RxNorm: 8 45776 1 Tablet(s) PO BID replaces 500mg dose 12/03/2011 07/26/2013 Inactive Zocor 40 mg tablet RxNorm: 828335 1 Tablet(s) PO QHS 12/03/201106/15 Inactive fluoxetine 20 mg capsule RxNorm: 861703 1 Capsule(s) PO QD 12/03/19 12 05/24/2012 Inactive diltiazem ER (XR/XT) 240 mg capsule,extended release,control led RxNorm: 926845 1 Capsule(s) PO QD 11/15/2011 11/09/2012 Inactive Benicar HCT 40 mg-25 mg tablet RxNorm: 014159 1 Tablet(s) PO QD 02/16/2012 Inactive metformin ER 500 mg 24 hr Tab RxNorm: 479380 1 Tablet(s) PO BID 12/02/2011 Inactive Zocor 40 mg Tab RxNorm: 102838 1 Tablet(s) PO QHS 05/30/2011 11/25/19 12 Inactive fluoxetine 20 mg Cap RxNorm: 884146 1 Capsule(s) PO QD 05/28/2011 Inactive Neurontin 600 mg Tab RxNorm: 978581 1 Tablet(s) PO QHS 05/28/2011 Inactive Neurontin 600 mg Tab RxNorm: 795496 1 Tablet(s) PO QHS 02/22/201106/2011 Inactive Neurontin 600 mg Tab RxNorm: 848477 1 Tablet(s) PO QHS 01/14/2011 Inactive Neurontin 300 mg Cap RxNorm: 562391 1 Capsule(s) PO QHS 01/14/2011 Inactive Neurontin 600 mg Tab RxNorm: 434060 1 Tablet(s) PO QHS 01/14/2011 Inactive Medrol (Vipul) 4 mg Tabs in a Dose Pack RxNorm: 818932 Tablet(s) PO 0 01/02/2011 08/28/2011 Inactive as directed fluoxetine 20 mg Cap RxNorm: 650337 1 Capsule(s) PO QD 12/10/201006/2011 Inactive Zocor 40 mg Tab RxNorm: 766769 1 Tablet(s) PO QHS 12/03/2010 05/29/19 12 Inactive Neurontin 300 mg Cap RxNorm: 100419 1 Capsule(s) PO QHS 12/03/2010 Inactive Septra DS 800 mg-160 mg Tab RxNorm: 783456 1 Tablet(s) PO BID 11/2912/08/2010 Inactive diltiazem ER (XR/XT) 240 mg Continuous Release Cap RxNorm: 8 83150 1 Capsule(s) PO QD 11/20/2010 11/15/2011 Inactive Neurontin 300 mg Cap RxNorm: 133192 1 Capsule(s) PO QHS 11/06/2010 Inactive Neurontin 300 mg Cap RxNorm: 023591 1 Capsule(s) PO QHS 11/06/2010 Inactive Celebrex 200 mg Cap RxNorm: 030577 1 Capsule(s) PO BID 10/24/2010 Inactive fluoxetine 20 mg Cap RxNorm: 139724 1 Capsule(s) PO QD 06/07/201003/2011 Inactive Zocor 40 mg Tab RxNorm: 156031 1 Tablet(s) PO QHS 06/05/2010 12/02/19 11 Inactive Benicar HCT 40 mg-25 mg Tab RxNorm: 635614 1 Tablet(s) PO QD 200908/21/2011 Inactive Diltiazem 240 mg Continuous Release Cap RxNorm: 844600 1 Capsul e(s) PO QD 11/09/2009 09/02/2018 Inactive Avelox 400 mg Tab RxNorm: 444612 1 Tablet(s) PO QD 08/22/2009 010 Inactive ProAir HFA 90 mcg/actuation aerosol inhaler RxNorm: 273423 2 Puff(s) INH Q4H as needed No Start Date Active tramadol 50 mg tablet RxNorm: 791231 1-2 Tablet(s) PO TID as ne eded for pain No Start Date Active Tylenol Arthritis 650 mg Tab RxNorm: 0714644 2 Tablet(s) PO QD No Sta rt Date Active Celebrex 200 mg Cap RxNorm: 317388 1 Capsule(s) PO BID No Start Date 08/08/2015 Inactive Medrol (Vipul) 4 mg Tabs in a Dose Pack RxNorm: 824927 Tablet(s) PO N o Start Date 01/01/2011 Inactive as directed Promethazine-DM 6.25 mg-15 mg/5 mL Syrup RxNorm: 821714 1-2 Teaspoon(s) PO Q4H prn cough No Start Date 08/28/2011 Inactive Claritin 10 mg tablet RxNorm: 763542 1 Tablet(s) PO QD No Start Date 08/08/2015 Inactive Xyscxgxuhw-[id number]-James-[id number] Oral RxNorm: Oral No Start Da te 03/28/2019 Inactive Breo Ellipta 200 mcg-25 mcg/dose powder for inhalation RxNor m: 6406633 1 Puff(s) INH QD No Start Date 04/09/2017 Inactive metformin 500 mg Tab RxNorm: 479634 1 Tablet(s) PO QD No Start Date 0 08/17/2011 Inactive Diltiazem 240 mg Continuous Release Cap RxNorm: 154108 1 Capsul e(s) PO BID No Start Date 11/08/2009 Inactive fluoxetine 20 mg Cap RxNorm: 795048 1 Capsule(s) PO QD No Start Date 06/07/2010 Inactive Multivitamin & Mineral Formula Oral RxNorm: Oral No Start Da te 03/28/2019 Inactive Medrol (Vipul) 4 mg tablets in a dose pack RxNorm: 766768 Tablet(s) PO as directed No Start Date 05/28/2012 Inactive Fish Oil 1,000 mg Cap RxNorm: 1 Capsule(s) PO QD No Start Date 07/2018 Inactive Nexium 40 mg Cap RxNorm: 963394 1 Capsule(s) PO QD No Start Date 07/24 Inactive fluticasone 50 mcg/actuation nasal spray,suspension RxNorm: 5643882 2 [place] NASAL QD to each nostril No Start Date 08/03/2017 Inactive Viagra 100 mg tablet RxNorm: 945560 1 Tablet(s) PO as needed No Sta rt Date 09/17/2015 Inactive prednisone 20 mg tablet RxNorm: 026937 1 Tablet(s) PO B ID for 4 days then 1 po daily for 4 days No Start Date 11/23/2018 Inactive Benicar HCT 40 mg-25 mg Tab RxNorm: 450645 1 Tablet(s) PO QD No Sta rt [...] Date S ervice Location MICROALBUMIN URINE RANDOM 16636 MICRL MG/L 5.8 MG/L 03/2011 Unknown MICROALBUMIN URINE RANDOM 77807 XM.ALB/CRE 5.2 MG/GCR Unknown MICROALBUMIN URINE RANDOM 56574 CREAT MG/D 111 MG/DL 03/2011 Unknown MICROALBUMIN URINE RANDOM 20665 CRE/100 1.11 G/L 12/24 Unknown Procedures Procedure Codes Date FLU VACC PRSV FREE INC ANTIG 65 AND OLDER CPT-4: 24334 03/04/2019 ADMIN PNEUMOCOCCAL VACCINE CPT-4: G0009 03/04/2019 ADMIN INFLUENZA VIRUS VAC CPT-4: G0008 03/04/2019 FLU VACC PRSV FREE INC ANTIG 65 AND OLDER CPT-4: 28150 03/04/2019 PNEUMOCOCCAL VACC 23 [facility] IM CPT-4: 80656 03/04/2019 THER/PROPH/DIAG INJ SC/IM CPT-4: 83590 08/11/2018 TRIAMCINOLONE ACET INJ NOS CPT-4: J3301 08/11/2018 DEXAMETHASONE SODIUM PHOS CPT-4: J1100 08/11/2018 THER/PROPH/DIAG INJ SC/IM CPT-4: 40256 07/16/2018 METHYLPREDNISOLONE INJECTION CPT-4: J2930 07/16/2018 INFLUENZA ASSAY W/OPTIC CPT-4: 80908 07/16/2018 THER/PROPH/DIAG INJ SC/IM CPT-4: 94808 07/13/2018 TRIAMCINOLONE ACET INJ NOS CPT-4: J3301 07/13/2018 THER/PROPH/DIAG INJ SC/IM CPT-4: 17079 05/04/2018 METHYLPREDNISOLONE INJECTION CPT-4: J2930 05/04/2018 FLU VACC PRSV FREE INC ANTIG 65 AND OLDER CPT-4: 64707 02/10/2018 PNEUMOCOCCAL VACC 13 [facility] IM CPT-4: 48006 02/10/2018 ADMIN INFLUENZA VIRUS VAC CPT-4: G0008 02/10/2018 ADMIN PNEUMOCOCCAL VACCINE CPT-4: G0009 02/10/2018 THER/PROPH/DIAG INJ SC/IM CPT-4: 25200 09/09/2017 TRIAMCINOLONE ACET INJ NOS CPT-4: J3301 09/09/2017 ALBUTEROL NON-COMP UNIT CPT-4: J7613 04/10/2017 AIRWAY INHALATION TREATMENT CPT-4: 86242 04/10/2017 PRESCRIP TRANSMIT VIA ERX SY CPT-4: G8553 04/10/2017 FLU VACC PRSV FREE INC ANTIG 65 AND OLDER CPT-4: 48167 03/28/2017 ADMIN INFLUENZA VIRUS VAC CPT-4: G0008 03/28/2017 PRESCRIP TRANSMIT VIA ERX SY CPT-4: G8553 08/27/2016 PRESCRIP TRANSMIT VIA ERX SY CPT-4: G8553 06/14/2016 ALBUTEROL NON-COMP UNIT CPT-4: J7613 06/13/2016 AIRWAY INHALATION TREATMENT CPT-4: 56539 06/13/2016 PRESCRIP TRANSMIT VIA ERX SY CPT-4: [...] CPT-4: G8553 11/07/2014 THER/PROPH/DIAG INJ SC/IM CPT-4: 71180 09/21/2014 METHYLPREDNISOLONE INJECTION CPT-4: J2930 09/21/2014 PRESCRIP TRANSMIT VIA ERX SY CPT-4: G8553 09/21/2014 PRESCRIP TRANSMIT VIA ERX SY CPT-4: G8553 06/10/2014 URINALYSIS NONAUTO W/O SCOPE CPT-4: 49314 06/01/2012 PRESCRIP TRANSMIT VIA ERX SY CPT-4: G8553 05/25/2012 PRESCRIP TRANSMIT VIA ERX SY CPT-4: G8553 12/03/2011 CUR TOBACCO NON-USER CPT-4: G8457 05/30/2011 PRESCRIP TRANSMIT VIA ERX SY CPT-4: G8553 05/30/2011 URINALYSIS NONAUTO W/O SCOPE CPT-4: 69371 01/01/2011 URINE CULTURE/ COLONY COUNT CPT-4: 34703 01/01/2011 CUR TOBACCO NON-USER CPT-4: G8457 01/01/2011 [...] 1: 114/68 Code: 8480-6 BMI: 43.5 Code: 26060-7 Heart Rate 1: 52 bpm Height: 6'1" [...] 1: 136/72 Code: 8480-6 BMI: 42.7 Code: 90319-6 Heart Rate 1: 60 bpm Height: 6'1" Respiratory Rate: 22 bpm SpO2: 95% Tempera ture: 37.1 (C) / 98.7 (F) Weight: 324 lbs 02/10/2018 Blood Pressure 1: 146/78 Code: 8480-6 BMI: 42.4 Code: 60328-9 Heart Rate 1: 64 bpm Height: 6'1" Respiratory Rate: 22 bpm SpO2: 95% Tempera ture: 36.5 (C) / 97.7 (F) Weight: 321 lbs 11/05/2017 Blood Pressure 1: 128/84 Code: 8480-6 BMI: 42.9 Code: 64967-4 Heart Rate 1: 52 bpm Height: 6'1" Respiratory Rate: 22 bpm SpO2: 95% Tempera ture: 36.3 (C) / 97.3 (F) Weight: 325 lbs 09/09/2017 Blood Pressure 1: 162/90 Code: 8480-6 BMI: 42.5 Code: 80303-8 Heart Rate 1: 60 bpm Height: 6'1" Respiratory Rate: 24 bpm SpO2: 95% Tempera ture: 36.4 (C) / 97.6 (F) Weight: 322 lbs 08/07/2017 Blood Pressure 1: 152/90 Code: 8480-6 BMI: 42.2 Code: 09613-3 Heart Rate 1: 60 bpm Height: 6'1" Respiratory Rate: 26 bpm SpO2: 94% Tempera ture: 36.6 (C) / 97.8 (F) Weight: 320 lbs 08/04/2017 Blood Pressure 1: 150/86 Code: 8480-6 BMI: 42.7 Code: 36213-5 Heart Rate 1: 64 bpm Height: 6'1" Respiratory Rate: 20 bpm SpO2: 94% Tempera ture: 36.3 (C) / 97.3 (F) Weight: 324 lbs 06/04/2017 Blood Pressure 1: 164/90 Code: 8480-6 Heart Rate 1: 60 bpm Respiratory Rate: 24 bpm SpO2: 94% Temperature: 36.8 (C) / 98.3 (F) 06/02/2017 Blood Pressure 1: 162/80 Code: 8480-6 BMI: 42.9 Code: 23023-7 Heart Rate 1: 66 bpm Height: 6'1" Respiratory Rate: 22 bpm SpO2: 98% Tempera ture: 36.6 (C) / 97.8 (F) Weight: 325 lbs 05/05/2017 Blood Pressure 1: 164/94 Code: 8480-6 BMI: 41.4 Code: 90505-1 Heart Rate 1: 64 bpm Height: 6'1" Respiratory Rate: 22 bpm SpO2: 95% Tempera ture: 36.4 (C) / 97.5 (F) Weight: 314 lbs 04/10/2017 Blood Pressure 1: 136/78 Code: 8480-6 BMI: 42.0 Code: 64335-0 Heart Rate 1: 76 bpm Height: 6'1" Respiratory Rate: 24 bpm SpO2: 92% Tempera ture: 35.9 (C) / 96.7 (F) Weight: 318 lbs 02/03/2017 Blood Pressure 1: 134/82 Code: 8480-6 BMI: 41.7 Code: 07865-0 Heart Rate 1: 72 bpm Height: 6'1" Respiratory Rate: 24 bpm SpO2: 95% Tempera ture: 36.1 (C) / 97.0 (F) Weight: 316 lbs 10/30/2016 Blood Pressure 1: 126/ Code: 8480-6 BMI: 41.3 Code: 44422-0 Heart Rate 1: 68 bpm Height: 6'1" Respiratory Rate: 20 bpm Temperature: 37 .1 (C) / 98.8 (F) Weight: 313 lbs 08/30/2016 Blood Pressure 1: 146/80 Code: 8480-6 BMI: 41.7 Code: 91381-4 Heart Rate 1: 64 bpm Height: 6'1" Respiratory Rate: 24 bpm SpO2: 94% Tempera ture: 36.6 (C) / 97.8 (F) Weight: 316 lbs 08/27/2016 Blood Pressure 1: 12478 Code: 8480-6 Heart Rate 1: 66 bpm Height: 6'2" Respiratory Rate: 18 bpm SpO2: 94% Temperature: 36.6 (C) / 97.8 (F) Weight: 07/02/2016 Blood Pressure 1: 12678 Code: 8480-6 BMI: 41.4 Code: 30418-5 Heart Rate 1: 68 bpm Height: 6'1" Respiratory Rate: 24 bpm SpO2: 94% Tempera ture: 36.6 (C) / 97.8 (F) Weight: 314 lbs 06/14/2016 Blood Pressure 1: 146/82 Code: 8480-6 Heart Rate 1: 80 bpm Respiratory Rate: 20 bpm SpO2: 95% Temperature: 37.3 (C) / 99.2 (F) 06/13/2016 Blood Pressure 1: 146/84 Code: 8480-6 BMI: 40.5 Code: 47824-5 Heart Rate 1: 66 bpm Height: 6'1" Respiratory Rate: 28 bpm SpO2: 93% Tempera ture: 35.8 (C) / 96.4 (F) Weight: 307 lbs 05/14/2016 Blood Pressure 1: 146/90 Code: 8480-6 BMI: 41.2 Code: 44885-9 Heart Rate 1: 68 bpm Height: 6'1" Respiratory Rate: 26 bpm Temperature: 36 .8 (C) / 98.2 (F) Weight: 312 lbs 04/29/2016 Blood Pressure 1: 152/90 Code: 8480-6 BMI: 41.0 Code: 81923-8 Heart Rate 1: 68 bpm Height: 6'1" Respiratory Rate: 26 bpm SpO2: 94% Tempera ture: 36.1 (C) / 96.9 (F) Weight: 311 lbs 04/22/2016 Blood Pressure 1: 152/94 Code: 8480-6 BMI: 40.9 Code: 97613-8 Heart Rate 1: 68 bpm Height: 6'1" Respiratory Rate: 24 bpm SpO2: 94% Tempera ture: 36.2 (C) / 97.2 (F) Weight: 310 lbs 04/01/2016 Blood Pressure 1: 156/78 Code: 8480-6 BMI: 40.6 Code: 11456-0 Heart Rate 1: 84 bpm Height: 6'1" Respiratory Rate: 22 bpm SpO2: 95% Tempera ture: 37.1 (C) / 98.7 (F) Weight: 308 lbs 11/30/2015 Blood Pressure 1: 142/80 Code: 8480-6 BMI: 40.5 Code: 05161-4 Heart Rate 1: 88 bpm Height: 6'1" Respiratory Rate: 22 bpm Temperature: 36 .2 (C) / 97.2 (F) Weight: 307 lbs 08/29/2015 Blood Pressure 1: 132/70 Code: 8480-6 BMI: 40.0 Code: 76072-3 Heart Rate 1: 76 bpm Height: 6'1" Respiratory Rate: 24 bpm SpO2: 96% Tempera ture: 36.7 (C) / 98.0 (F) Weight: 303 lbs 08/14/2015 Blood Pressure 1: 126/80 Code: 8480-6 BMI: 39.4 Code: 03360-6 Heart Rate 1: 92 bpm Height: 6'1" Respiratory Rate: 24 bpm SpO2: 94% Tempera ture: 37.8 (C) / 100.0 (F) Weight: 299 lbs 08/09/2015 Blood Pressure 1: 146/82 Code: 8480-6 Heart Rate 1: 82 bpm Respiratory Rate: 22 bpm SpO2: 93% Temperature: 35.9 (C) / 96.6 (F) We ight: 310 lbs 05/22/2015 Blood Pressure 1: 156/76 Code: 8480-6 BMI: 41.0 Code: 42032-8 Heart Rate 1: 100 bpm Height: 6'1" Respiratory Rate: 22 bpm Temperature: 37 .2 (C) / 98.9 (F) Weight: 311 lbs 02/13/2015 Blood Pressure 1: 166/90 Code: 8480-6 BMI: 41.2 Code: 74814-3 Heart Rate 1: 72 bpm Height: 6'1" Respiratory Rate: 24 bpm SpO2: 93% Tempera ture: 36.9 (C) / 98.5 (F) Weight: 312 lbs 11/07/2014 Blood Pressure 1: 134/70 Code: 8480-6 BMI: 40.5 Code: 39224-3 Heart Rate 1: 76 bpm Height: 6'1" Respiratory Rate: 24 bpm Temperature: 36 .9 (C) / 98.4 (F) Weight: 307 lbs 10/04/2014 Blood Pressure 1: 144/86 Code: 8480-6 BMI: 40.1 Code: 08777-2 Heart Rate 1: 76 bpm Height: 6'1" Respiratory Rate: 28 bpm Temperature: 36 .6 (C) / 97.9 (F) Weight: 304 lbs 09/22/2014 Blood Pressure 1: 142/80 Code: 8480-6 BMI: 40.0 Code: 81501-8 Heart Rate 1: 80 bpm Height: 6'1" Respiratory Rate: 22 bpm SpO2: 96% Tempera ture: 36.6 (C) / 97.8 (F) Weight: 303 lbs 09/21/2014 Blood Pressure 1: 160/66 Code: 8480-6 BMI: 40.0 Code: 33742-7 Heart Rate 1: 90 bpm Height: 6'1" Respiratory Rate: 26 bpm SpO2: 94% Tempera ture: 35.7 (C) / 96.2 (F) Weight: 303 lbs 06/28/2014 Blood Pressure 1: 132/80 Code: 8480-6 BMI: 41.0 Code: 56123-6 Heart Rate 1: 64 bpm Height: 6' Respiratory Rate: 20 bpm Temperature: 36 .7 (C) / 98.0 (F) Weight: 302 lbs 06/10/2014 Blood Pressure 1: 152/70 Code: 8480-6 BMI: 41.1 Code: 05729-1 Heart Rate 1: 76 bpm Height: 6' Respiratory Rate: 20 bpm Temperature: 36 .6 (C) / 97.8 (F) Weight: 303 lbs 03/29/2014 Blood Pressure 1: 132/78 Code: 8480-6 BMI: 40.6 Code: 87294-6 Heart Rate 1: 84 bpm Height: 6' Respiratory Rate: 22 bpm Temperature: 37 .1 (C) / 98.8 (F) Weight: 299 lbs 11/30/2013 Blood Pressure 1: 136/84 Code: 8480-6 BMI: 39.2 Code: 48126-9 Heart Rate 1: 76 bpm Height: 6' Respiratory Rate: 20 bpm Temperature: 36 .8 (C) / 98.2 (F) Weight: 289 lbs 08/03/2013 Blood Pressure 1: 144/80 Code: 8480-6 Heart Rate 1: 86 bpm Respiratory Rate: 20 bpm Temperature: 36.6 (C) / 97.8 (F) Weight: 296 lbs 04/06/2013 Blood Pressure 1: 142/90 Code: 8480-6 BMI: 40.3 Code: 43634-6 Heart Rate 1: 88 bpm Height: 6' Respiratory Rate: 20 bpm Temperature: 36 .6 (C) / 97.8 (F) Weight: 297 lbs 12/01/2012 Blood Pressure 1: 124/78 Code: 8480-6 BMI: 38.7 Code: 29653-3 Heart Rate 1: 76 bpm Height: 6' Respiratory Rate: 20 bpm Temperature: 37 .2 (C) / 98.9 (F) Weight: 285 lbs 08/04/2012 Blood Pressure 1: 128/80 Code: 8480-6 BMI: 38.2 Code: 50633-8 Heart Rate 1: 76 bpm Height: 6' Respiratory Rate: 20 bpm Temperature: 37 .0 (C) / 98.6 (F) Weight: 282 lbs 05/29/2012 Blood Pressure 1: 138/78 Code: 8480-6 BMI: 36.6 Code: 35067-1 Heart Rate 1: 66 bpm Height: 6' Temperature: 36.7 (C) / 98.1 (F) Weight: 270 lbs 05/25/2012 Blood Pressure 1: 128/72 Code: 8480-6 BMI: 39.9 Code: 16858-2 Heart Rate 1: 74 bpm Height: 6' Temperature: 36.1 (C) / 97.0 (F) Weight: 294 lbs 04/07/2012 Blood Pressure 1: 124/76 Code: 8480-6 BMI: 39.9 Code: 41224-4 Heart Rate 1: 72 bpm Height: 6' Respiratory Rate: 20 bpm Temperature: 36 .9 (C) / 98.5 (F) Weight: 294 lbs 12/16/2011 Blood Pressure 1: 128/80 Code: 8480-6 BMI: 40.8 Code: 81882-6 Heart Rate 1: 74 bpm Height: 6' Temperature: 36.6 (C) / 97.8 (F) Weight: 301 lbs 12/03/2011 Blood Pressure 1: 132/76 Code: 8480-6 BMI: 40.8 Code: 11306-3 Heart Rate 1: 68 bpm Height: 6' Respiratory Rate: 20 bpm Temperature: 36 .8 (C) / 98.2 (F) Weight: 301 lbs 08/29/2011 Blood Pressure 1: 140/68 Code: 8480-6 BMI: 40.8 Code: 98386-4 Heart Rate 1: 80 bpm Height: 6' Respiratory Rate: 20 bpm Temperature: 36 .4 (C) / 97.6 (F) Weight: 301 lbs 05/30/2011 Blood Pressure 1: 134/82 Code: 8480-6 BMI: 41.5 Code: 26694-1 Heart Rate 1: 76 bpm Height: 6' [...] 1: 126/72 Code: 8480-6 BMI: 41.2 Code: 88914-7 Heart Rate 1: 76 bpm Height: 6' [...] 1: 152/90 Code: 8480-6 BMI: 37.7 Code: 91324-2 Heart Rate 1: 92 bpm Height: 6'1" Temperature: 38.3 (C) / 101.0 (F) Weight : 286 lbs Functional Status No Functional Status data Reason For Visit Reason For Visit Effective Dates Notes follow up 08/30/2019 Discuss singulair th erapy follow up 08/10/2019 cellulitis 07/06/2019 follow up 05/10/2019 follow up 03/29/2019 [facility] injection(s) 03/04/2019 follow up 01/05/2019 Discuss pathology [...] given hi m clotrimazole/betamethasone follow up 08/07/2017 fw follow up 08/04/2017 follow up 06/04/2017 follow [...] dm Encounters Encounter Performer Location Codes Date ([id number]) OFFICE/OUTPATIENT VISIT EST Diagnosis: Chronic obstructive pulmonary disease, unspecified[ICD10: J44.9] Diagnosis: Essential (primary) hypertension[ICD10: I10] Diagnosis: Mixed hyperlipidemia[ICD10: E78.2] Diagnosis: Type 2 diabetes mellitus with hyperglycemia[ICD10: E11.65] Neela HYMAN DO [facility] CPT-4: 69873 08/30/2019 ([id number]) OFFICE/OUTPATIENT VISIT EST Diagnosis: Chronic obstructive pulmonary disease with (acute) exacerbation[ICD10: J44.1] Neela HYMAN [facility] CPT- 4: 57410 08/10/2019 ([id number]) OFFICE/OUTPATIENT VISIT EST Diagnosis: Sore on toe[ICD10: L98.9] Neela VASQUEZ [facility] CPT-4: 30396 07/06/2019 ([id number]) OFFICE/OUTPATIENT VISIT EST Diagnosis: Advanced chronic obstructive pulmonary disease[ICD10: J44.9] 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] Neela HYMAN [facility] CPT-4: 90067 05/10/2019 ([id number]) OFFICE/OUTPATIENT VISIT EST Diagnosis: Chronic obstructive pulmonary disease with (acute) exacerbation[ICD10: J44.1] Diagnosis: Hypokalemia[ICD10: E87.6] 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] Neela HYMAN [facility] CPT-4: 43011 03/29/2019 ([id number]) NURSE/OUTPATIENT VISIT EST Diagnosis: PNEUMOCOCCAL VACCINE[ICD10: Z23] Neela HYMAN [facility] CPT-4: 13410 03/04/2019 ([id number]) OFFICE/OUTPATIENT VISIT EST Diagnosis: Chronic obstructive pulmonary disease with (acute) exacerbation[ICD10: J44.1] Diagnosis: Other nonspecific abnormal finding of lung field[ICD10: R91.8] Neela HYMAN [facility] CPT-4: 63973 01/05/2019 ([id number]) OFFICE/OUTPATIENT VISIT EST Diagnosis: Solitary pulmonary nodule[ICD10: R91.1] 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] Diagnosis: Tinea corporis[ICD10: B35.4] Neela HYMAN [employer] [facility] CPT-4: 27319 12/09/2018 ([id number]) OFFICE/OUTPATIENT VISIT EST Diagnosis: COUGH[ICD10: R05] Diagnosis: Chronic obstructive pulmonary disease, unspecified[ICD10: J44.9] Diagnosis: Other disorders of lung[ICD10: J98.4] Diagnosis: Other nonspecific abnormal finding of lung field[ICD10: R91.8] Nelea HYMAN [employer] [facility] CPT-4: 06219 11/24/2018 ([id number]) OFFICE/OUTPATIENT VISIT EST Diagnosis: Pneumonia, unspecified organism[ICD10: J18.9] Amita HYMAN [employer] [facility] CPT-4: 00064 09/16/2018 ([id number]) OFFICE/OUTPATIENT VISIT EST Diagnosis: Pneumonia, unspecified organism[ICD10: J18.9] Neela HYMAN [employer] [facility] CPT-4: 25836 09/03/2018 ([id number]) OFFICE/OUTPATIENT VISIT EST Diagnosis: Personal history of pneumonia (recurrent)[ICD10: Z87.01] Diagnosis: Cough[ICD10: R05] Diagnosis: Essential (primary) hypertension[ICD10: I10] Diagnosis: Type 2 diabetes mellitus with hyperglycemia[ICD10: E11.65] Amita HYMAN [employer] [facility] CPT-4: 09597 08/27/2018 OFFICE/OUTPATIENT VISIT EST Diagnosis: Pneumonia, unspecified organism[ICD10: J18.9] Diagnosis: Chronic obstructive pulmonary disease with (acute) exacerbation[ICD10: J44.1] Diagnosis: Other specified symptoms and signs involving the circulatory and respiratory systems[ICD10: R09.89] Diagnosis: Essential (primary) hypertension[ICD10: I10] Amita HYMAN [employer] [facility] CPT-4: 08706 08/13/2018 OFFICE/OUTPATIENT VISIT EST Diagnosis: Pneumonia, unspecified organism[ICD10: J18.9] Diagnosis: Other specified symptoms and signs involving the circulatory and respiratory systems[ICD10: R09.89] Amita MIRZALINE JulissaMendez [employer] [facility] CPT-4: 07046 08/11/2018 ([id number]) OFFICE/OUTPATIENT VISIT EST Diagnosis: Dyspnea, unspecified[ICD10: R06.00] Diagnosis: Chronic obstructive pulmonary disease with (acute) exacerbation[ICD10: J44.1] Diagnosis: Pneumonia, unspecified organism[ICD10: J18.9] Amita MIRZALINE JulissaMendez [employer] [facility] CPT-4: 27368 07/16/2018 ([id number]) OFFICE/OUTPATIENT VISIT EST Diagnosis: Acute bronchitis due to other specified organisms[ICD10: J20.8] Diagnosis: Cough[ICD10: R05] Amita MIRZALINE JulissaMendez [place] [employer] [facility] T-4: 34100 07/13/2018 ([id number]) OFFICE/OUTPATIENT VISIT EST Diagnosis: Essential (primary) hypertension[ICD10: I10] Diagnosis: Chronic obstructive pulmonary disease, unspecified[ICD10: J44.9] Diagnosis: Type 2 diabetes mellitus with hyperglycemia[ICD10: E11.65] Diagnosis: Mixed hyperlipidemia[ICD10: E78.2] Neela Sergemelany STERLING JulissaMendez [employer] [facility] CPT-4: 64364 06/03/2018 ([id number]) OFFICE/OUTPATIENT VISIT EST Diagnosis: Chronic obstructive pulmonary disease, unspecified[ICD10: J44.9] Gely Harp NEELA JulissaMendez [employer] [employer] [facility] CPT-4: 71292 05/04/2018 ([id number]) OFFICE/OUTPATIENT VISIT EST Diagnosis: Essential (primary) hypertension[ICD10: I10] Diagnosis: Localized edema[ICD10: R60.0] eNela MURILLO JulissaMendez [employer] [facility] CPT-4: 92658 03/03/2018 ([id number]) OFFICE/OUTPATIENT VISIT EST Diagnosis: Localized edema[ICD10: R60.0] Neela MURILLO JulissaMendez [employer] [facility] CPT-4: 98813 02/17/2018 ([id number]) OFFICE/OUTPATIENT VISIT EST Diagnosis: FLU VACCINE[ICD10: Z23] Diagnosis: PNEUMOCOCCAL VACCINE[ICD10: Z23] Diagnosis: Type 2 diabetes mellitus without complications[ICD10: E11.9] Diagnosis: Mixed hyperlipidemia[ICD10: E78.2] Diagnosis: Essential (primary) hypertension[ICD10: I10] Diagnosis: Localized edema[ICD10: R60.0] Diagnosis: Chronic obstructive pulmonary disease, unspecified[ICD10: J44.9] Neela Hyman NEELA [employer]issa[facility]endez [employer] CPT-4: 33359 02/10/2018 ([id number]) OFFICE/OUTPATIENT VISIT EST Diagnosis: Type 2 diabetes mellitus with hyperglycemia[ICD10: E11.65] Diagnosis: Mixed hyperlipidemia[ICD10: E78.2] Diagnosis: Essential (primary) hypertension[ICD10: I10] Diagnosis: Chronic obstructive pulmonary disease, unspecified[ICD10: J44.9] Diagnosis: Cutaneous abscess of back [any part, except buttock][ICD10: L02.212] Neela Sergemelany MURILLO [employer] CPT-4: 32758 11/05/2017 ([id number]) OFFICE/OUTPATIENT VISIT EST Diagnosis: Allergic urticaria[ICD10: L50.0] Gely MIRZALINE [employer] CPT-4: 70830 09/09/2017 ([id number]) OFFICE/OUTPATIENT VISIT EST Diagnosis: Generalized enlarged lymph nodes[ICD10: R59.1] Diagnosis: Acute gastritis without bleeding[ICD10: K29.00] Gely MIRZALINE [employer] CPT-4: 24446 08/07/2017 ([id number]) OFFICE/OUTPATIENT VISIT EST Diagnosis: Type 2 diabetes mellitus without complications[ICD10: E11.9] Diagnosis: Mixed hyperlipidemia[ICD10: E78.2] Diagnosis: Essential (primary) hypertension[ICD10: I10] Neela Sergemelany MURILLO [employer] CPT-4: 27156 08/04/2017 ([id number]) OFFICE/OUTPATIENT VISIT EST Diagnosis: Zoster without complications[ICD10: B02.9] Diagnosis: Acute sialoadenitis[ICD10: K11.21] Gely Harp SETHJYOTIRYAN STERLING [employer] CPT-4: 51652 06/04/2017 OFFICE/OUTPATIENT VISIT EST Diagnosis: Zoster without complications[ICD10: B02.9] Diagnosis: Acute sialoadenitis[ICD10: K11.21] Gely HYMAN [employer] [facility] CPT-4: 64178 06/02/2017 ([id number]) OFFICE/OUTPATIENT VISIT EST Diagnosis: Type 2 diabetes mellitus without complications[ICD10: E11.9] Diagnosis: Mixed hyperlipidemia[ICD10: E78.2] Diagnosis: Essential (primary) hypertension[ICD10: I10] Diagnosis: Chronic obstructive pulmonary disease, unspecified[ICD10: J44.9] Neela HYMAN [employer] [facility] CPT-4: 67810 05/05/2017 OFFICE/OUTPATIENT VISIT EST Diagnosis: Chronic obstructive pulmonary disease with acute lower respiratory infection[ICD10: J44.0] Diagnosis: Impacted cerumen, bilateral[ICD10: H61.23] Gley HYMAN [employer] [facility] CPT-4: 04049 04/10/2017 ([id number]) OFFICE/OUTPATIENT VISIT EST Diagnosis: FLU VACCINE[ICD10: Z23] Neela BUI [employer] [facility] CPT-4: 54714 03/28/2017 ([id number]) OFFICE/OUTPATIENT VISIT EST Diagnosis: Type 2 diabetes mellitus without complications[ICD10: E11.9] Diagnosis: Mixed hyperlipidemia[ICD10: E78.2] Diagnosis: Essential (primary) hypertension[ICD10: I10] Diagnosis: Chronic obstructive pulmonary disease, unspecified[ICD10: J44.9] Neela HYMAN [employer] [facility] CPT-4: 17502 02/03/2017 ([id number]) OFFICE/OUTPATIENT VISIT EST Diagnosis: Type 2 diabetes mellitus with hyperglycemia[ICD10: E11.65] Diagnosis: Mixed hyperlipidemia[ICD10: E78.2] Diagnosis: Essential (primary) hypertension[ICD10: I10] Diagnosis: Chronic obstructive pulmonary disease, unspecified[ICD10: J44.9] Neela HYMAN [employer] [facility] CPT-4: 50550 10/30/2016 ([id number]) NO CHARGE Diagnosis: Acute bronchitis, unspecified[ICD10: J20.9] Sammi HYMAN DO [facility] CPT-4: 95029 08/30/2016 ([id number]) OFFICE/OUTPATIENT VISIT EST Diagnosis: Acute bronchitis, unspecified[ICD10: J20.9] Diagnosis: Other seasonal allergic rhinitis[ICD10: J30.2] Sammi HYMAN DO [facility] CPT-4: 68052 08/27/2016 ([id number]) OFFICE/OUTPATIENT VISIT EST Diagnosis: Type 2 diabetes mellitus without complications[ICD10: E11.9] Diagnosis: Mixed hyperlipidemia[ICD10: E78.2] Diagnosis: Essential (primary) hypertension[ICD10: I10] Neela HYMAN DO [facility] CPT-4: 49193 07/02/2016 ([id number]) OFFICE/OUTPATIENT VISIT EST Diagnosis: Acute bronchitis, unspecified[ICD10: J20.9] Sammi HYMAN DO [facility] CPT-4: 90517 06/14/2016 ([id number]) OFFICE/OUTPATIENT VISIT EST Diagnosis: Acute bronchitis, unspecified[ICD10: J20.9] Sammi HYMAN DO [facility] CPT-4: 38585 06/13/2016 ([id number]) OFFICE/OUTPATIENT VISIT EST Diagnosis: Essential (primary) hypertension[ICD10: I10] Neela HYMAN DO [facility] CPT-4: 97640 05/14/2016 ([id number]) OFFICE/OUTPATIENT VISIT EST Diagnosis: Essential (primary) hypertension[ICD10: I10] Neela HYMAN DO [facility] CPT-4: 79931 04/29/2016 ([id number]) OFFICE/OUTPATIENT VISIT EST Diagnosis: Unspecified abdominal pain[ICD10: R10.9] Diagnosis: Left lower quadrant pain[ICD10: R10.32] Diagnosis: Left upper quadrant pain[ICD10: R10.12] Diagnosis: Essential (primary) hypertension[ICD10: I10] Neela HYMAN DO [facility] CPT-4: 95555 04/22/2016 ([id number]) OFFICE/OUTPATIENT VISIT EST Diagnosis: Type 2 diabetes mellitus without complications[ICD10: E11.9] Diagnosis: Mixed hyperlipidemia[ICD10: E78.2] Diagnosis: Essential (primary) hypertension[ICD10: I10] Neela HYMAN DO [facility] CPT-4: 21642 04/01/2016 ([id number]) OFFICE/OUTPATIENT VISIT EST Diagnosis: Type 2 diabetes mellitus with hyperglycemia[ICD10: E11.65] Diagnosis: Mixed hyperlipidemia[ICD10: E78.2] Diagnosis: Essential (primary) hypertension[ICD10: I10] Neela HYMAN DO [facility] CPT-4: 67325 11/30/2015 ([id number]) OFFICE/OUTPATIENT VISIT EST Diagnosis: Type 2 diabetes mellitus with diabetic neuropathy, unspecified[ICD10: E11.40] Diagnosis: Essential (primary) hypertension[ICD10: I10] Diagnosis: Mixed hyperlipidemia[ICD10: E78.2] Neela Sergegemmahao HYMAN DO [facility] HEALTH CPT-4: 86497 08/29/2015 ([id number]) OFFICE/OUTPATIENT VISIT EST Diagnosis: COUGH[ICD10: R05] Diagnosis: Wheezing[ICD10: R06.2] Diagnosis: Type 2 diabetes mellitus with diabetic neuropathy, unspecified[ICD10: E11.40] Neela HYMAN DO [facility] CPT-4: 41209 08/14/2015 ([id number]) OFFICE/OUTPATIENT VISIT EST Diagnosis: Other seasonal allergic rhinitis[ICD10: J30.2] Diagnosis: Dyspnea, unspecified[ICD10: R06.00] Diagnosis: Wheezing[ICD10: R06.2] SammiKeren HYMAN DO [facility] CPT-4: 82911 08/09/2015 ([id number]) OFFICE/OUTPATIENT VISIT EST Diagnosis: Essential (primary) hypertension[ICD10: I10] Diagnosis: Type 2 diabetes mellitus with hyperglycemia[ICD10: E11.65] Diagnosis: Mixed hyperlipidemia[ICD10: E78.2] Neela Orendhao HYMAN DO [facility] CPT-4: 81125 05/22/2015 ([id number]) OFFICE/OUTPATIENT VISIT EST Diagnosis: 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] Diagnosis: - I - HYPERTENSION[ICD9: 401.9] Diagnosis: - I - HYPERLIPIDEMIA NEC/NOS[ICD9: 272.4] Diagnosis: Left hand paresthesia[ICD9: 782.0] Neela HYMAN [facility] CPT-4: 96466 02/13/2015 ([id number]) OFFICE/OUTPATIENT VISIT EST Diagnosis: HYPERLIPIDEMIA NEC/NOS[ICD9: 272.4] Diagnosis: 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] Neela HYMAN [facility] CPT-4: 86584 11/07/2014 ([id number]) OFFICE/OUTPATIENT VISIT EST Diagnosis: ALLERGIC RHINITIS[ICD9: 477.9] Diagnosis: WHEEZING[ICD9: 786.07] Neela Duarte [facility] CPT-4: 28155 10/04/2014 ([id number]) OFFICE/OUTPATIENT VISIT EST Diagnosis: BRONCHITIS, ACUTE[ICD9: 466.0] Diagnosis: WHEEZING[ICD9: 786.07] Loren Duarte [facility] CPT-4: 95648 09/22/2014 ([id number]) OFFICE/OUTPATIENT VISIT EST Diagnosis: DYSPNEA[ICD9: 786.09] Diagnosis: WHEEZING[ICD9: 786.07] Diagnosis: Arrhythmia[ICD9: 427.9] Loren BUI [facility] CPT-4: 09854 09/21/2014 ([id number]) OFFICE/OUTPATIENT VISIT EST Diagnosis: 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, 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] Diagnosis: - I - HYPERLIPIDEMIA NEC/NOS[ICD9: 272.4] Diagnosis: - I - HYPERTENSION[ICD9: 401.9] Neela MIRZALINE Octavio HYMAN [facility] CPT-4: 90548 06/28/2014 OFFICE/OUTPATIENT VISIT EST Diagnosis: SINUSITIS, ACUTE[ICD9: 461.9] Diagnosis: OTITIS MEDIA NOS[ICD9: 382.9] Sarah Sunshine [facility]A [facility]: 54828 06/10/2014 ([id number]) OFFICE/OUTPATIENT VISIT EST Diagnosis: 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] Diagnosis: - I - HYPERLIPIDEMIA NEC/NOS[ICD9: 272.4] Diagnosis: - I - HYPERTENSION[ICD9: 401.9] Neela HYMAN [facility] CPT-4: 78097 03/29/2014 ([id number]) OFFICE/OUTPATIENT VISIT EST Diagnosis: 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] Diagnosis: - I - HYPERTENSION[ICD9: 401.9] Diagnosis: - I - HYPERLIPIDEMIA NEC/NOS[ICD9: 272.4] Diagnosis: Hand lesion[ICD9: 709.9] Neela MADRIGAL [facility] CPT-4: 72958 11/30/2013 ([id number]) OFFICE/OUTPATIENT VISIT EST Diagnosis: 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] Diagnosis: HYPERLIPIDEMIA NEC/NOS[ICD9: 272.4] Diagnosis: HYPERTENSION[ICD9: 401.9] [facility]: 69222 08/03/2013 ([id number]) OFFICE/OUTPATIENT VISIT EST Diagnosis: 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, 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] Diagnosis: HYPERTENSION[ICD9: 401.9] Diagnosis: HYPERLIPIDEMIA NEC/NOS[ICD9: 272.4] Neela GREGORIO SMendez ZHANG [employer] [facility] CPT-4: 07951 04/06/2013 ([id number]) OFFICE/OUTPATIENT VISIT EST Diagnosis: 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] Diagnosis: HYPERLIPIDEMIA NEC/NOS[ICD9: 272.4] Diagnosis: HYPERTENSION[ICD9: 401.9] Neela FRENCHR [facility] CPT-4: 94467 12/01/2012 ([id number]) OFFICE/OUTPATIENT VISIT EST Diagnosis: 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] Diagnosis: HYPERTENSION[ICD9: 401.9] Diagnosis: HYPERLIPIDEMIA NEC/NOS[ICD9: 272.4] Neelasabina LAWLERNDHAO [employer] [facility] CPT-4: 21668 08/04/2012 ([id number]) OFFICE/OUTPATIENT VISIT EST Diagnosis: URINARY FREQUENCY[ICD9: 788.41] Neela Sergegemmahao NEELA JulissaMendez SERGENDHAO [facility] CPT-4: 63119 06/01/2012 OFFICE/OUTPATIENT VISIT EST Diagnosis: Agitation[ICD9: 307.9] Diagnosis: Frequent urination[ICD9: 788.41] Janet Jean Baptiste NEELA JulissaMendez SERGENDER [facility] CPT-4: 17248 05/29/2012 OFFICE/OUTPATIENT VISIT EST Diagnosis: SINUSITIS, ACUTE[ICD9: 461.9] Diagnosis: OTALGIA[ICD9: 388.70] Neela MURILLO JulissaMendez VICENTEER [facility] CPT-4: 66734 05/25/2012 OFFICE/OUTPATIENT VISIT EST Diagnosis: 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, 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] Diagnosis: HYPERTENSION[ICD9: 401.9] Diagnosis: HYPERLIPIDEMIA NEC/NOS[ICD9: 272.4] Neela GREGORIO SeMndez SERGENDER [facility] CPT-4: 39912 04/07/2012 OFFICE/OUTPATIENT VISIT EST Diagnosis: FINGER INJURY[ICD9: 959.5] Janet Jean Baptiste NEELA SMendez [facility] CPT-4: 42212 12/16/2011 ([id number]) OFFICE/OUTPATIENT VISIT EST Diagnosis: 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, 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] Diagnosis: HYPERTENSION[ICD9: 401.9] Diagnosis: HYPERLIPIDEMIA NEC/NOS[ICD9: 272.4] Neela GREGORIO SMendez SERGENDER [facility] CPT-4: 94271 12/03/2011 ([id number]) OFFICE/OUTPATIENT VISIT EST Diagnosis: 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] Diagnosis: HYPERLIPIDEMIA NEC/NOS[ICD9: 272.4] Diagnosis: HYPERTENSION[ICD9: 401.9] Neela Cunningham SERGE NDER [facility] CPT-4: 98978 08/29/2011 OFFICE/OUTPATIENT VISIT EST Diagnosis: 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] Diagnosis: HYPERLIPIDEMIA NEC/NOS[ICD9: 272.4] Diagnosis: HYPERTENSION[ICD9: 401.9] Neela Cunningham [employer] [facility] CPT-4: 85781 05/30/2011 OFFICE/OUTPATIENT VISIT EST Diagnosis: SKIN SENSATION DISTURB[ICD9: 782.0] Neela [facility]REG[facility]IO [facility] CPT-4: 73172 01/29/2011 OFFICE/OUTPATIENT VISIT EST Diagnosis: SKIN SENSATION DISTURB[ICD9: 782.0] Neela GREGORIO [facility] CPT-4: 85719 01/14/2011 OFFICE/OUTPATIENT VISIT EST Neela Cunningham [employer] [facility] CPT- 4: 06391 01/01/2011 OFFICE/OUTPATIENT VISIT EST Neela Cunningham [employer] [facility] CPT- 4: 65848 11/29/2010 ([id number]) OFFICE/OUTPATIENT VISIT EST Neela HORAN SMendez ORENDER DO [facility] CPT-4: 35953 08/28/2010 ([id number]) OFFICE/OUTPATIENT VISIT, EST Neela WILDE S. ORENDER DO [facility] CPT-4: 94314 06/05/2010 ([id number]) OFFICE/OUTPATIENT VISIT, EST Neela WILDE S. ORENDER DO [facility] CPT-4: 71178 02/05/2010 ([id number]) OFFICE/OUTPATIENT VISIT, EST Neela WILDE S. ORENDER DO [facility] CPT-4: 69848 10/09/2009 ([id number]) OFFICE/OUTPATIENT VISIT, EST Nelea WILDE S. ORENDER DO [facility] CPT-4: 44275 08/22/2009 Plan of Care Planned Activity Notes [...] : E11.65 08/30/2019 Appointment: Neela Hyman WPtel: [address] [place], [place] [phone] FOLLOW UP 08/30/2019 Visit Diagnosis Plan: Chronic [...] : J44.1 08/10/2019 Appointment: Neela Hyman WPtel: [address] [place] [address] ACUTE ILLNESS 08/10/2019 Visit Diagnosis Plan: Sore on toe Discussion: Keep farhat an/dry Keflex Notify if worsens ICD-9 : 709.9 ICD-10 : L98.9 07/06/2019 Appointment: Neela Hyman WPtel: [address] [place] [address] ACUTE ILLNESS 07/06/2019 Patient Education: Singulair- [employer] Coupon [id number] [id number] https://www.Compliance 11/PWA/resources/getResource/61/8lu204bh-77i0-7s34-06 Completed 07/06/2019 Visit Diagnosis Plan: Advanced chronic obstructive pul monary disease Discussion: Continue oxygen and pulmonary rehab Follow Up: 3 months ICD-9 : 496 ICD-10 : J44.9 05/10/2019 Visit Diagnosis Plan: Lymphoma involving lung Discussi on: Doing weekly lab and chemo ICD-9 : 202.82 ICD-10 : C85.99 05/10/2019 Appointment: Neela Hymnatel: [address] [place], [place] [address] FOLLOW UP 05/10/2019 Appointment: Neela Hymantel: [address] [place] [address] he called 04/14/19-- he was at physical [...] ICD-10 : E87.6 03/29/2019 Appointment: Neela Hymantel: [address] [place] [address] Hospital Follow Up 03/29/2019 Appointment: Neela Hymantel: [address] [place], [place] [phone] [place] INJECTION 03/04/2019 Visit Diagnosis Plan: Chronic obstructiv e pulmonary disease with (acute) exacerbation Discussion: Increase SVNS with duoneb to QID Prednisone taper ICD-9 : 491.21 ICD-10 : J44.1 01/05/2019 Visit Diagnosis Plan: Other nonspecific abnormal findi ng of lung field Discussion: Referral to pulmonology--will likely need bronchoscopy--path results discussed ICD-9 : 786.6 ICD-10 : R91.8 01/05/2019 Appointment: Neela Hymantel: [address] [place], [place] [phone] FOLLOW UP 01/05/2019 Patient Education: prednisone- [employer] Coupon [phone] https://www.PWA.2C2P/sample[employer]ob[employer]/resources/getResource/61/m2pm2270-390x-0n54-cu Completed 01/05/2019 Care Plan: Referral Order SNOMED-CT : 30 [id number] Pending 01/05/2019 Appointment: Neela Hymantel: [address] [place], [place] [phone] [place] CANCELED 12/21/2018 Visit Diagnosis Plan: Tinea corporis Discussion: Diflu can--hold simvastatin and fenofibrate while taking ICD-9 : 110.5 ICD-10 : B35.4 12/09/2018 Visit Diagnosis Plan: Solitary pulmonary nodule Discus esmer: CT guided needle biopsy of RUL lung mass ICD-9 : 793.11 ICD-10 : R91.1 12/09/2018 Appointment: Neela Hyman WPtel: [address] [place] [address] [place] FOLLOW UP 12/09/2018 Appointment: Gely Harp [address] [address] [place] NO SHOW 12/01/2018 Visit Diagnosis Plan: [...] : J44.9 11/24/2018 Appointment: Neela Hyman WPtel: [address] [place] [address] FOLLOW UP 11/24/2018 Care Plan: PET IMAGE FULL BODY LOINC : 4 2711-2 Pending 11/24/2018 Appointment: Neela Hyman WPtel: [address] [place], [place] [phone] [place] Consult 09/21/2018 Visit Diagnosis Plan: Pneumonia, unspecified organism Discussion: Patient clinically improved. Recent CT scan from 09/07 showed unresolved right upper lobe pneumonia. Finished another 7 days of levaquin. Will repeat CBC early next week. Order sent with patient to get done at [facility]. FU CT recommended in 4 weeks. Patient states understanding. ICD-9 : 486 ICD-10 : J18.9 09/16/2018 Appointment: Amita Henderson [address] FOLLOW UP 09/16/2018 Visit Diagnosis Plan: Pneumonia, unspecified organism Discussion: Clinically patient feels and looks much better but need CT scan of chest due to ongoing round pneumonia in association with his known lymphoma ICD-9 : 486 ICD-10 : J18.9 09/03/2018 Appointment: Neela Hyman WPtel: [id number] FOLLOW UP 09/03/2018 Care Plan: CT THORAX [...] ICD-10 : Z87.01 08/27/2018 Appointment: Amita Henderson [address] [place], [place] [phone] FOLLOW UP 08/27/2018 Visit Diagnosis Plan: Other [...] ICD-10 : I10 08/13/2018 Appointment: Amita Henderson [facility] [employer] [id number] LM FOLLOW UP 08/13/2018 Appointment: Amita Henderson [facility] [id number] CANCELED 08/13/2018 Patient Education: prednisone- [employer] Coupon [phone] https://www.Compliance 11/sample[employer]ob[employer]/resources/getResource/61/js98dw5e-8g41-6ez3-0t Completed 08/13/2018 Visit Diagnosis Plan: Other specified [...] ICD-10 : J18.9 08/11/2018 Appointment: Amita Henderson [facility] [place] ACUTE ILLNESS 08/11/2018 Care Plan: CHEST X-RAY 2VW FRONTAL&LATL LOINC : 23347-5 Pending 07/20/2018 Visit Diagnosis Plan: Dyspnea, unspecified Discussion: CXR- to be completed at the hospital. Will call with results and any adjustments in plan. Solumedrol 125 administered in clinic Prednisone 20 mg BID x 5 days- start tomorrow ICD-9 : 786.09 ICD-10 : R06.00 07/16/2018 Appointment: Amita Henderson [address] [place], [place] [phone] ACUTE ILLNESS 07/16/2018 Patient Education: prednisone- [employer] Coupon [phone] https://www.Compliance 11/sample[employer]/resources/getResource/61/60p2e5wq-vy25-9ll7-p4 Completed 07/16/2018 Visit Diagnosis Plan: Acute bronchitis due to other sp ecified organisms Discussion: Kenalog 40 mg IM administered in clinic. Doxycycline called into [facility]. Take as directed. Continue nebulizer and Trelegy. Follow up if symptoms are not improving with treatment regimen. Patient states understanding of all instruction. ICD-9 : 466.0 ICD-10 : J20.8 07/13/2018 Appointment: Amita Henderson [address] [place], [place] [phone] ACUTE ILLNESS 07/13/2018 Patient Education: doxycycline hyclate- [employer] Cou saritha [id number] https://www.Compliance 11/PWA/resources/getResource/61/8p382f36-3j1u-0408-9t Completed 07/13/2018 Care Plan: [place] : [address]-4 Pending 07/13/2018 Care Plan: CBC Pending 07/13/2018 Care Plan: A1C HPLC LOINC : 68639-0 Pending 07/13/2018 Visit Diagnosis Plan: Mixed hyperlipidemia [...] : I10 06/03/2018 Appointment: Neela Hyman WPtel: [address] [place] [address] FOLLOW UP 06/03/2018 Visit Diagnosis Plan: Chronic [...] ICD-10 : J44.9 05/04/2018 Appointment: Gely Harp [address] [place] [address] ACUTE ILLNESS 05/04/2018 Visit Diagnosis Plan: Localized edema Discussion: Cont inue lasix and potassium at every other day Recheck lab and fwup in 3mos Follow Up: 3 months ICD-9 : 782.3 ICD-10 : R60.0 03/03/2018 Appointment: Neela Hyman WPtel: [address] [place] [address] FOLLOW UP 03/03/2018 Patient Education: Patient Medication Summary Completed 03/03/2018 Visit Diagnosis Plan: Localized edema Discussion: Finch ge lasix and potassium to every other day Check Chem 7 in 2 weeks and fwup ICD-9 : 782.3 ICD-10 : R60.0 02/17/2018 Appointment: Neela Hyman WPtel: [address] [place] [address] FOLLOW UP 02/17/2018 Patient Education: Patient Medication [...] : R60.0 02/10/2018 Appointment: Neela Hyman [facility]Ptel: [facility] [place] FOLLOW UP 02/10/2018 Patient Education: Patient [...] L02.212 11/05/2017 Appointment: Neela Hyman WPtel: [phone] [facility] [place] FOLLOW UP 11/05/2017 Patient Education: Patient Medication Summary Completed 11/05/2017 Patient Education: Patient Medication Summary Completed 11/03/2017 Care Plan: [place] : [address]-9 Pending 11/03/2017 Care Plan: LIPID PANEL LOINC : 37527-1 Pending 11/03/2017 Care Plan: CBC Pending 11/03/2017 Care Plan: A1C HPLC LOINC : 15588-0 Pending 11/03/2017 Visit Diagnosis Plan: Allergic urticaria [...] ICD-10 : L50.0 09/09/2017 Appointment: Gely Harp [address] [place], [place] [address] ACUTE ILLNESS 09/09/2017 Patient Education: Patient Medication [...] : R59.1 08/07/2017 Appointment: [facility] [facility] Follow Up 08/07/2017 Patient Education: Patient Medication Summary Completed 08/07/2017 Visit Diagnosis Plan: Type 2 diabetes mellitus without complications Discussion: Accuchecks daily Lab discussed Continue current meds ICD-9 : 250.00 ICD-10 : E11.9 08/04/2017 Visit Diagnosis Plan: Essential (primary) hypertension Discussion: Increase Cardizem CD to 360mg daily ICD-9 : 401.9 ICD-10 : I10 08/04/2017 Appointment: Neela Hyman WPtel: [phone] [facility] FOLLOW UP 08/04/2017 Patient Education: Patient Medication Summary Completed 08/04/2017 Patient Education: Patient Medication Summary Completed 07/31/2017 Care Plan: [place] : 36[address]-8 Pending 07/31/2017 Care Plan: ASSAY THYROID STIM HORMONE Pen ding 07/31/2017 Care Plan: LIPID PANEL LOINC : 47409-8 Pending 07/31/2017 Care Plan: CBC Pending 07/31/2017 Care Plan: A1C HPLC LOINC : 56172-3 Pending 07/31/2017 Patient Education: Patient Medication Summary Completed 06/19/2017 Patient Education: Patient Medication Summary Completed 06/09/2017 Care Plan: CT SOFT TISSUE [place] : [address]95-7 Pending 06/09/2017 Visit Diagnosis Plan: Acute sialoadenitis [...] : B02.9 06/04/2017 Appointment: Gely Harp [address] ACUTE ILLNESS 06/04/2017 Patient Education: Patient Medication [...] : B02.9 06/02/2017 Appointment: Gely Harp [facility] ACUTE ILLNESS 06/02/2017 Patient Education: Patient Medication [...] E11.9 05/05/2017 Appointment: Neela Hyman WPtel: [phone] [facility] FOLLOW UP 05/05/2017 Patient Education: Patient Medication Summary Completed 05/05/2017 Patient Education: Patient Medication Summary Completed 05/01/2017 Care Plan: A1C HPLC [facility] : 55554-8 Pending 05/01/2017 Visit Diagnosis Plan: Chronic obstructiv [...] ICD-10 : H61.23 04/10/2017 Appointment: Gely Harp [address] [place], [place] [phone] ACUTE ILLNESS 04/10/2017 Patient Education: Patient Medication Summary Completed 04/10/2017 Appointment: Neela Hyman WPtel: [phone] [facility] [place] INJECTION 03/28/2017 Patient Education: Patient Medication [...] : J44.9 02/03/2017 Appointment: Neela Hyman WPtel: [facility] [place] FOLLOW UP 02/03/2017 Patient Education: Patient Medication Summary Completed 02/03/2017 Patient Education: Patient Medication Summary Completed 01/30/2017 Care Plan: [place] : [address]-8 Pending 01/30/2017 Care Plan: LIPID PANEL LOINC : 73683-5 Pending 01/30/2017 Care Plan: CBC Pending 01/30/2017 Care Plan: A1C HPLC LOINC : 78318-4 Pending 01/30/2017 Care Plan: ASSAY OF PSA [...] : E11.65 10/30/2016 Appointment: Neela Hyman WPtel: [facility] [place] 10/29 lm ~sl 10/30 confirmed~sl FOLLOW UP 11/2016 Patient Education: Patient Medication Summary Completed 10/30/2016 Patient Education: Patient Medication Summary Completed 10/24/2016 Visit Diagnosis Plan: Acute bronchitis, unspecified Di scussion: Patient sounds and looks much improved Continue current regimen Keep appt with Dr Levi for Friday Follow up PRN ICD-9 : 466.0 ICD-10 : J20.9 08/30/2016 Appointment: Sammi Najera [address] [place], [place] [address] 08/29 rang and rang rang 08/30 rang [...] ICD-10 : J20.9 08/27/2016 Appointment: Sammi Najera [address] [place] [address] FOLLOW UP 08/27/2016 Patient Education: Patient Medication Summary Completed 08/27/2016 Care Plan: Referral Order SNOMED-CT : 30 [id number] Pending 08/27/2016 Visit Diagnosis Plan: Type 2 [...] : I10 07/02/2016 Appointment: Neela Hyman WPtel: [address] [place], [place] [address] 07/01 rang and rang` FOLLOW UP 7 Patient Education: Patient Medication Summary Completed 07/02/2016 Patient Education: Patient Medication Summary Completed 06/27/2016 Care Plan: LIPID PANEL LOINC : 79186-2 Pending 06/27/2016 Care Plan: [place] : [address]-3 Pending 06/27/2016 Care Plan: A1C HPLC LOINC : 95311-3 Pending 06/27/2016 Visit Diagnosis Plan: Acute bronchitis, [...] ICD-10 : J20.9 06/14/2016 Appointment: Sammi Najera [address] [place], [place] [phone] FOLLOW UP 06/14/2016 Patient Education: Patient Medication [...] ICD-10 : J20.9 06/13/2016 Appointment: Sammi Najera [address] [place] [address] ACUTE ILLNESS 06/13/2016 Patient Education: Patient Medication Summary Completed 06/13/2016 Care Plan: CHEST X-RAY 2VW FRONTAL&LATL LOINC : 82599-0 Pending 06/13/2016 Visit Plan: Increase metoprolol to 100mg po BID BP readings and BP check in 1month 05/14/2016 Appointment: Neela Hyman WPtel: [address] [place], [place] [phone] 05/13 rang and rang`sl FOLLOW UP 6 Patient Education: Patient Medication Summary Completed 05/14/2016 Visit Plan: Increase metoprolol to 50mg BID BP check in 1 week f/u BP appt 2 weeks consider musculoskeletal if pain returns 04/29/2016 Appointment: Neela Hyman WPtel: [phone] [facility] 04/25 confimred~sl FOLLOW UP 04/29/2016 Patient Education: Patient Medication Summary Completed 04/29/2016 Visit Plan: Stat CT scan of abdomen/pelv is to look for stone Hydrate and use tramadol prn Increase metoprolol to 25mg po BID Will see urology pending CT scan results 04/22/2016 Appointment: Neela Hyman WPtel: [address] [place], [place] [phone] 04/17 confirmed-sp ACUTE ILLNESS 04/22/2016 Patient Education: [...] flu shot 04/01/2016 Appointment: Neela Hyman WPtel: [address] [place], [place] [phone] [place] FOLLOW UP 04/01/2016 Patient Education: Patient Medication Summary Completed 04/01/2016 Patient Education: [facility] - Saving Auto[employer] - 18-64 - Dynamic Heber l ID Completed 04/01/2016 Patient Education: Patient Medication Summary Completed 03/28/2016 Care Plan: A1C HPLC LOINC : 36430-1 Pending 03/28/2016 Care Plan: [place] : [address]-3 Pending 03/28/2016 Visit Plan: Lab discussed Continue curre nt meds Accuchecks daily 11/30/2015 Appointment: Neela Hyman WPtel: [address] [place], [place] [phone] 11/28 confirmed~sl FOLLOW UP 11/30/2015 Patient Education: Patient Medication Summary Completed 11/30/2015 Appointment: Neela Hyman WPtel: [address] [place], [place] [phone] [place] RESCHEDULED 11/28/2015 Patient Education: Patient Medication Summary Completed 11/23/2015 Care Plan: COMPREHEN [place]AB[place] : 11461-1 Pending 11/23/2015 Care Plan: LIPID PANEL LOINC : 13375-2 Pending 11/23/2015 Care Plan: CBC Pending 11/23/2015 Care Plan: A1C HPLC LOINC : 89747-1 Pending 11/23/2015 Visit Plan: Lab discussed Accuchecks richard ly Continue current meds Cymbalta helping with feet and mood 08/29/2015 Appointment: Neela Hyman WPtel: [phone] [facility] [place] FOLLOW UP 08/29/2015 Patient Education: Patient Medication Summary Completed 08/29/2015 Visit Plan: Check CXR Stop all steroids and steroid inhalers Use SVN with but change to duoneb Add singulair for allergy etiology Change fluoxetine to cymbalta 60mg daily Viagra samples given to try prn--warned of no nitrates 08/14/2015 Appointment: Neela Hyman WPtel: [phone] [facility] lm to reschedule ~sl 07/27 lm ~sl 08/09 busy 08/10 fer rosales-riley Annual Well Visit 08/14/2015 Patient Education: Patient Medication Summary Completed 08/14/2015 Care Plan: CHEST X-RAY 2VW FRONTAL&LATL LOINC : 42050-6 Ordered 08/14/2015 Visit Plan: Decadron 8mg given [...] as expected 08/09/2015 Appointment: Sammi [facility]ajera [phone] [facility] Follow UP 08/09/2015 Patient Education: Patient [...] with it 05/22/2015 Appointment: Neela Hyman WPtel: [address] [place], [place] [phone] 05/17 confirmed~sl FOLLOW UP 05/22/2015 Patient Education: Patient Medication Summary Completed 05/22/2015 Patient Education: Patient Medication Summary Completed 05/15/2015 Visit Plan: Obtain EMGs done at [place] from when fractured left arm Lab discussed Accuchecks daily 02/13/2015 Appointment: Neela Hyman WPtel: [address] [place], [place] [phone] 02/10 confrimed FOLLOW UP 02/13/2015 Patient Education: Patient Medication Summary Completed 02/13/2015 Patient Education: Patient Medication Summary Completed 02/09/2015 Visit Plan: discussed lab add fenofibrat e 134mg po daily recheck fasting lab in 3 months, CBC, CMP, Lipids, hgb AIC 11/07/2014 Appointment: Neela Hyman WPtel: [address] [place], [place] [phone] 11/04 appt confirmed cn FOLLOW UP 015 Patient Education: Patient Medication Summary Completed 11/07/2014 Patient Education: Patient Medication Summary Completed 11/03/2014 Visit Plan: Continue loratadine 10mg richard munguia Notify if symptoms return 10/04/2014 Appointment: Neela Hyman WPtel: [address] [place], [place] [phone] [place] confirmed on 10/03 at 2:42pm FOLLOW UP 09/23 Patient Education: Patient Medication Summary Completed 10/04/2014 Appointment: Neela Hyman WPtel: [address] [place], [place] [phone] ACUTE ILLNESS 09/28/2014 Appointment: Loren Garza WPtel: [address] [place], [place] [phone] FOLLOW UP 09/22/2014 Patient Education: Patient Medication Summary Completed 09/22/2014 Appointment: Loren Garza Delma WPtel: [address] [place] [address] ACUTE ILLNESS 09/21/2014 Patient Education: Patient Medication Summary Completed 09/21/2014 Patient Education: [facility] - [facility] [employer] - 18+ - Dynamic Portal ID Completed 09/21/2014 Visit Plan: Lab discussed Continue daily accuchecks Continue current meds 06/28/2014 Appointment: Neela Hyman WPtel: [address] [place] [address] FOLLOW UP 06/28/2014 Patient Education: Patient Medication Summary Completed 06/28/2014 Patient Education: Patient Medication Summary Completed 06/23/2014 Appointment: Sarah Sunshine WPtel: [address] [place] [address] ACUTE ILLNESS 06/10/2014 Patient Education: Patient Medication Summary Completed 06/10/2014 Patient Education: [facility] - Saving AutoInj - 18+ - Dynamic Portal ID Completed 06/10/2014 Visit Plan: Lab discussed Continue daily accuchecks Continue current meds 03/29/2014 Appointment: Neela Hyman WPtel: [address] [place], [place] [phone] FOLLOW UP 03/29/2014 Patient Education: Patient Medication Summary Completed 03/29/2014 Patient Education: Patient Medication Summary Completed 03/23/2014 Visit Plan: Lab discussed Continue curre nt meds and accuchecks See surgery for removal of hand lesion 11/30/2013 Appointment: Neela Hyman WPtel: [address] [place], [place] [phone] 11/29 no answer FOLLOW UP 11/30/2013 Patient Education: Patient Medication Summary Completed 11/30/2013 Visit Plan: Lab discussed Continue curre nt meds 08/03/2013 Appointment: Neela Hyman WPtel: [address] [place] [address] FOLLOW UP 08/03/2013 Patient Education: Patient Medication Summary Completed 08/03/2013 Visit Plan: Lab Discussed Will continue current meds and pt will get back on diet/exercise Check lab in 4mos and fwup 04/06/2013 Appointment: Neela Hyman WPtel: [address] [place] [address] FOLLOW UP 04/06/2013 Patient Education: Patient Medication Summary Completed 04/06/2013 Visit Plan: Lab discussed Continue daily accuchecks 12/01/2012 Appointment: Neela Hyman WPtel: [address] [place] [address] 11/30 no answer FOLLOW UP 12/01/2012 Patient Education: Patient Medication Summary Completed 12/01/2012 Visit Plan: Continue current meds and da russell accuchecks Lab discussed 08/04/2012 Appointment: Neela Hyman WPtel: [address] [place] [address] FOLLOW UP 08/04/2012 Patient Education: Patient Medication Summary Completed 08/04/2012 Appointment: Neela Hyman WPtel: [address] [place] [address] 06/01/2012 Patient Education: Patient Medication Summary Completed 06/01/2012 Appointment: Janet Jean Baptiste WPtel: [address] [place] [address] [place] FOLLOW UP 05/29/2012 Patient Education: Patient Medication Summary Completed 05/29/2012 Visit Plan: pt states Dr. Hyman told h is to increase his Prozac dose while she was talking to her at [facility]. Discussed that pt. should not increase or decrease dosage without 's knowledge. Pt. will seek hearing test here in town at the hearing aid place on [address]. Discussed that ear pain is likely caused by sinus pressure. Pt. will notify if no improvement. 05/25/2012 Appointment: Janet Jean Baptiste WPtel: [address] [place], [place] [phone] ACUTE ILLNESS 05/25/2012 Patient Education: Patient Medication Summary Completed 05/25/2012 Visit Plan: Continue current meds Contin ue daily accuchecks but alternate times Increase fish oil to 3gm daily 04/07/2012 Appointment: Neela Hyman WPtel: [address] [place], [place] [phone] 04/06 FOLLOW UP 04/07/2012 Patient Education: Patient Medication Summary Completed 04/07/2012 Appointment: Janet Jean Baptiste WPtel: [address] [place] [address] ACUTE ILLNESS 12/16/2011 Patient Education: Patient Medication Summary Completed 12/16/2011 Visit Plan: Increase 12/03/2011 Appointment: Neela Hyman WPtel: [address] [place], [place] [phone] FOLLOW UP 12/03/2011 Patient Education: Patient Medication Summary Completed 12/03/2011 Visit Plan: Continue current meds Contin ue accuchecks 08/29/2011 Appointment: Neela Hyman WPtel: [address] [place], [place] [phone] [place] FOLLOW UP 08/29/2011 Patient Education: Patient Medication Summary Completed 08/29/2011 Visit Plan: Continue current meds except restart zocor 05/30/2011 Appointment: Neela Hyman WPtel: [address] [place], [place] [phone] [place] FOLLOW UP 05/30/2011 Patient Education: Patient Medication Summary Completed 05/30/2011 Visit Plan: Continue tennis elbow strap May go back to weight-lifing--light weigts every other day 01/29/2011 Appointment: Neela Hyman WPtel: [address] [place], [place] [phone] FOLLOW UP 01/29/2011 Patient Education: Patient Medication Summary Completed 01/29/2011 Visit Plan: Continue tennis elbow strap and anti-inflammatories 01/14/2011 Appointment: Neela Hyman WPtel: [address] [place], [place] [phone] FOLLOW UP 01/14/2011 Appointment: Janet Jean Baptiste WPtel: [address] [place], [place] [phone] NEW PATIENT 01/14/2011 Patient Education: Patient Medication Summary Completed 01/14/2011 Appointment: Neela Hyman WPtel: [address] [place] [address] FOLLOW UP 01/08/2011 Appointment: Neela Hyman WPtel: [address] [place] [address] FOLLOW UP 01/01/2011 Appointment: Neela Hyman WPtel: [address] [place], [place] [phone] UA 01/01/2011 Patient Education: Patient [...] given. 11/29/2010 Appointment: Janet Jean Baptiste WPtel: [address] [place], [place] [phone] ACUTE ILLNESS 11/29/2010 Patient Education: Patient Medication Summary Completed 11/29/2010 Visit Plan: Cont current meds Check CMP, Lipids, HbA1C 08/28/2010 Appointment: Neela Hyman WPtel: [address] [place], [place] [phone] FOLLOW UP 08/28/2010 Patient Education: Patient Medication Summary Completed 08/28/2010 Visit Plan: Cont current meds and accuch ecks Add Zocor 40mg q HS Check Lipids and HbA1C in 3mos 06/05/2010 Appointment: Neela Hyman WPtel: [address] [place], [place] [phone] FOLLOW UP 06/05/2010 Patient Education: Patient Medication Summary Completed 06/05/2010 Visit Plan: Check Lipids and HbA1C 02/05/2010 Appointment: Neela Hyman WPtel: [address] [place], [place] [phone] FOLLOW UP 02/05/2010 Patient Education: Patient Medication Summary Completed 02/05/2010 Visit Plan: HbA1C in 3mos. Continue Accu checks BID alternating times. Check HbA1C, CMP, Lipids 10/09/2009 Appointment: Neela Hyman WPtel: [address] [place], [place] [phone] FOLLOW UP 10/09/2009 Patient Education: Patient Medication Summary Completed 10/09/2009 Visit Plan: Saline nasal flushes prn. Ty lenol/Motrin prn headache. Notify if persists/symptoms worsening. 08/22/2009 Appointment: Neela Hyman WPtel: [address] [place], [place] [phone] ACUTE ILLNESS 08/22/2009 Patient Education: Patient Medication Summary Completed 08/22/2009 Referral: Aubrey Rand WPtel: [address] [place], [place] [id number] [place] Office will verfy his insurance then they will contact patient Completed Referral: Shahbaz Brennan WPtel: [address] [facility] [address] [id number] [place] Referral Completed Referral: Ion Levi [address] [facility] C&D [id number] [place] Referral Appointment Requested Referral: Ion Levi [address] [facility] C&D [id number] [place] Referral Appointment Requested Instructions Comment . [...] with it . Obtain EMGs done at [place] from when fractured left arm Lab discussed [...] while she was talking to her at [facility]. Discussed that pt. should not increase or decrease dosage without Dr's knowledge. Pt. will seek hearing test here in town at the hearing aid place on [address]. Discussed that ear pain is likely caused [...] data not found Advance Directives Filename Date 06/06/2011
--- OUTSIDE RECORDS SUMMARY | 2019-12-09 09:01 | XMS REPORT | CCD ---
Author Author Michael Hyman D.O. Organization [facility] Address [address] [place] [address] Phone Care Team Providers Care Accounts Receivable Manager Name Role Phone Neela Hyman D.O., PP Unavailable CCM Unavailable Summary Purpose Interface Exchange Insurance Providers Payer name Policy type / Coverage type Covered alliance party ID Effective Begin Date Effective End Date ABS FOR [employer] [id number] Unknown Family History Family History data not found Social History Social History Element Codes Description Effective Dates Marital status Unknown 05/30/[address]: 6323720 Former smoker quit 25 years ago 01/01/2011 [...] Start Date Stop Date Status Fill Instructions metformin 500 mg tablet RxNorm: 976235 2 Tablet(s) Oral two afshan es a day 09/22/2019 12/20/2019 Active Lasix 40 mg tablet RxNorm: 331826 1 Tablet(s) Oral QD 08/24/201910/25 Active duloxetine 60 mg capsule,delayed release RxNorm: 931504 TAKE ONE CAPSULE BY MOUTH EVERY DAY 08/16/2019 02/11/2020 Active metoprolol succinate ER 100 mg tablet,extended release 24 hr RxNorm: 338516 TAKE ONE TABLET BY MOUTH TWICE A DAY 08/16/2019 05/11/2020 Active potassium chloride ER 20 mEq tablet,extended release RxNorm: 259846 1 Tablet(s) Oral two times a day 07/22/2019 10/19/2019 Active metformin 500 mg tablet RxNorm: 400585 2 Tablet(s) Oral two afshan es a day 07/13/2019 09/21/2019 Inactive Singulair 10 mg tablet RxNorm: 555892 TAKE ONE TABLET BY MOUTH EVERY EVENING 07/06/2019 01/02/2020 Active Reselected prescribe r from [facility] to [facility] Keflex 500 mg capsule RxNorm: 793156 1 Capsule(s) Oral three ti mes a day 07/06/2019 07/13/2019 Inactive Singulair 10 mg tablet RxNorm: 695944 TAKE ONE TABLET BY MOUTH EVERY EVENING 06/22/2019 07/05/2019 Inactive Reselected prescribe r from [facility] to [facility] Zocor 40 mg tablet RxNorm: 122290 TAKE ONE TABLET BY M OUTH EVERY NIGHT AT BEDTIME 06/21/2019 11/17/2019 Active MagOx 400 mg (241.3 mg magnesium) tablet RxNorm: 620099 1 Table t(s) Oral QD 06/21/2019 08/20/2019 Inactive diltiazem ER 360 mg capsule,24 hr,extended release RxNorm: 8 30961 TAKE ONE CAPSULE BY MOUTH AT BEDTIME -REPLACES 300MG 05/17/2019 11/12/2019 Active MagOx 400 mg (241.3 mg magnesium) tablet RxNorm: 059208 1 Table t(s) Oral QD 04/26/2019 06/20/2019 Inactive Lasix 40 mg tablet RxNorm: 669818 40 MG PO DAILY 04/12/2019 08/23/2019 Inactive Benicar 40 mg tablet RxNorm: 118841 1 Tablet(s) Oral QD 03/29/2019 Active potassium chloride ER 20 mEq tablet,extended release RxNorm: 600355 1 Tablet(s) Oral two times a day 03/29/2019 06/27/2019 Inactive potassium chloride ER 20 mEq tablet,extended release RxNorm: 467028 1 Tablet(s) Oral QD 03/29/2019 03/28/2019 Inactive Benicar 40 mg tablet RxNorm: 489345 1 Tablet(s) Oral QD 03/29/2019 Inactive MagOx 400 mg (241.3 mg magnesium) tablet RxNorm: 910083 1 Table t(s) Oral QD 03/29/2019 04/25/2019 Inactive metformin 500 mg tablet RxNorm: 735761 2 Tablet(s) Oral two afshan es a day 03/29/2019 07/12/2019 Inactive fenofibrate micronized 134 mg capsule RxNorm: 767323 TA KE ONE CAPSULE BY MOUTH EVERY DAY 03/05/2019 08/31/2019 Inactive duloxetine 60 mg capsule,delayed release RxNorm: 291105 1 Capsu le(s) PO QD 01/28/2019 07/26/2019 Inactive Trelegy Ellipta 100 mcg-62.5 mcg-25 mcg powder for inhalatio n RxNorm: 3366823 1 Puff(s) INH QD 01/06/2019 12/31/2019 Active 90 day supply prednisone 20 mg tablet RxNorm: 679048 1 Tablet(s) PO T ID for 3 days then 1 po BID for 3 days then 1 po daily for 3 days 01/05/2019 03/28/2019 Inacti ve metformin ER 1,000 mg tablet,extended release 24hr RxNorm: 1 419774 TAKE TWO TABLETS (1000MG) BY MOUTH TWO TIMES A DAY 12/22/2018 07/13/2019 Inacti ve Diflucan 100 mg tablet RxNorm: 259232 1 Tablet(s) PO QD 12/09/2018 Inactive prednisone 20 mg tablet RxNorm: 935690 1 Tablet(s) PO B ID for 4 days then 1 po daily for 4 days 11/24/2018 01/04/2019 Inactive albuterol sulfate 2.5 mg/3 mL (0.083 %) solution for n ebulization RxNorm: 271305 3 Milliliter(s) INH ONE VIAL VIA NEBULIZER EVERY 4 HOURS 019 07/21/2019 Inactive [AttnRPh: Saving apply/adjudicate RxGRP: SG20 RxBIN:[id number] RxPCN: ID#:[id number]] Trelegy Ellipta 100 mcg-62.5 mcg-25 mcg powder for inhalatio n RxNorm: 8650132 1 Puff(s) INH QD 10/27/2018 01/06/2019 Inactive 90 day supply diltiazem ER 360 mg capsule,24 hr,extended release RxNorm: 8 15274 TAKE ONE CAPSULE BY MOUTH AT BEDTIME -REPLACES 300MG 10/13/2018 04/10/2019 Inactive metoprolol succinate ER 100 mg tablet,extended release 24 hr RxNorm: 877141 TAKE ONE TABLET BY MOUTH TWICE A DAY 10/13/2018 07/09/2019 Inactive Trelegy Ellipta 100 mcg-62.5 mcg-25 mcg powder for inhalatio n RxNorm: 9721690 INHALE ONE PUFF ONCE DAILY 09/07/2018 10/27/2018 Inactive Levaquin 750 mg tablet RxNorm: 096089 1 Tablet(s) PO QD 09/07/2018 Inactive Levaquin 750 mg tablet RxNorm: 441438 1 Tablet(s) PO QD 09/07/2018 Inactive prednisone 20 mg tablet RxNorm: 897027 2 Tablet(s) PO QAM 08/13/2018 08/19/2018 Inactive Levaquin 500 mg tablet RxNorm: 320578 1 Tablet(s) PO QD 08/11/2018 Inactive fenofibrate micronized 134 mg capsule RxNorm: 785789 TA KE ONE CAPSULE BY MOUTH EVERY DAY 08/10/2018 02/05/2019 Inactive prednisone 20 mg tablet RxNorm: 536197 1 Tablet(s) PO BID 07/16/2018 07/20/2018 Inactive doxycycline hyclate 100 mg capsule RxNorm: 6675900 1 Capsule(s) PO BID 07/13/2018 07/22/2018 Inactive duloxetine 60 mg capsule,delayed release RxNorm: 122012 TAKE ONE CAPSULE BY MOUTH ONCE A DAY 07/08/2018 01/28/2019 Inactive Lasix 40 mg tablet RxNorm: 123640 1 TABLET(S) PO QAM 06/08/201809/05 Inactive potassium chloride ER 20 mEq tablet,extended release(p art/cryst) RxNorm: 2584044 1 TABLET(S) PO QD 06/08/2018 09/05/2018 Inactive metformin ER 1,000 mg tablet,extended release 24hr RxNorm: 1 776455 TAKE TWO TABLETS (1000MG) BY MOUTH TWO TIMES A DAY 06/01/2018 11/27/2018 Inacti ve Benicar HCT 40 mg-25 mg tablet RxNorm: 832547 TAKE ONE TABLET BY MOUTH ONCE DAILY 05/11/2018 03/28/2019 Inactive Zocor 40 mg tablet RxNorm: 533129 TAKE ONE TABLET BY M OUTH EVERY NIGHT AT BEDTIME 05/11/2018 06/20/2019 Inactive Trelegy Ellipta 100 mcg-62.5 mcg-25 mcg powder for inhalatio n RxNorm: 2462956 1 PUFF(S) INH QD 04/06/2018 07/04/2018 Inactive diltiazem ER 360 mg capsule,24 hr,extended release RxNorm: 8 76829 1 Capsule(s) PO QHS replaces 300mg dose 03/30/2018 09/25/2018 Inactive Trelegy Ellipta 100 mcg-62.5 mcg-25 mcg powder for inhalatio n RxNorm: 2415874 1 Puff(s) INH QD 02/24/2018 02/23/2018 Inactive Trelegy Ellipta 100 mcg-62.5 mcg-25 mcg powder for inhalatio n RxNorm: 1397848 1 Puff(s) INH QD 02/24/2018 02/23/2018 Inactive Trelegy Ellipta 100 mcg-62.5 mcg-25 mcg powder for inhalatio n RxNorm: 3786507 1 Puff(s) INH QD 02/24/2018 04/05/2018 Inactive Lasix 40 mg tablet RxNorm: 521812 1 Tablet(s) PO QAM 02/10/201803/11 Inactive potassium chloride ER 20 mEq tablet,extended release(p art/cryst) RxNorm: 4570769 1 Tablet(s) PO QD 02/10/2018 03/11/2018 Inactive fenofibrate micronized 134 mg capsule RxNorm: 151246 1 Capsule( s) PO QD 01/30/2018 07/28/2018 Inactive metoprolol succinate ER 100 mg tablet,extended release 24 hr RxNorm: 798398 TAKE ONE TABLET BY MOUTH TWICE A DAY 12/30/2017 09/25/2018 Inactive metformin ER 1,000 mg tablet,extended release 24hr RxNorm: 1 733747 1 Tablet(s) PO BID 11/17/2017 05/15/2018 Inactive [SAVINGS FOR NON -COVERED DRUGS -- BIN:618668, PCN: ASPROD1, Group: XXXXX, ID# [id number], Questions: . THIS IS NOT INSURANCE.] Benicar HCT 40 mg-25 mg tablet RxNorm: 052512 1 Tablet(s) PO QD 05/10/2018 Inactive [SAVINGS FOR NON-COVERED JESU GS -- BIN:710014, PCN: ASPROD1, Group: XXXXX, ID# [id number], Questions: . THIS IS NOT INSURANCE.] Bactroban 2 % topical cream RxNorm: 877419 Application TOP BID 10/2409/02/2018 Inactive clindamycin HCl 300 mg capsule RxNorm: 809498 2 Capsule(s) PO TID 0 11/05/2017 11/18/2017 Inactive duloxetine 60 mg capsule,delayed release RxNorm: 671907 Capsule(s) TAKE ONE CAPSULE BY MOUTH ONCE DAILY 09/24/2017 09/23/2017 Inactive triamcinolone acetonide 0.1 % topical ointment RxNorm: 0070687 1 TOP BID 09/09/2017 11/04/2017 Inactive Bactrim DS 800 mg-160 mg tablet RxNorm: 939619 1 Tablet(s) PO BID 0 08/07/2017 08/13/2017 Inactive metronidazole 500 mg tablet RxNorm: 277709 1 Tablet(s) PO BID 08/0708/13/2017 Inactive diltiazem ER 360 mg capsule,24 hr,extended release RxNorm: 8 04846 1 Capsule(s) PO QHS replaces 300mg dose 08/04/2017 01/30/2018 Inactive fenofibrate micronized 134 mg capsule RxNorm: 428077 1 Capsule( s) PO QD 07/21/2017 01/30/2018 Inactive Zocor 40 mg tablet RxNorm: 038595 1 Tablet(s) PO QHS 07/21/201705/10 Inactive GB duloxetine 60 mg capsule,delayed release RxNorm: 215014 Capsule(s) TAKE ONE CAPSULE BY MOUTH ONCE DAILY 06/24/2017 09/24/2017 Inactive Cleocin HCl 300 mg capsule RxNorm: 986892 2 Capsule(s) PO BID 06/0206/08/2017 Inactive acyclovir 800 mg tablet RxNorm: 593227 1 Tablet(s) PO 5x day 201706/08/2017 Inactive diltiazem ER 300 mg capsule,24 hr,extended release RxNorm: 8 94732 1 Capsule(s) PO QHS replaces 240mg dose 05/05/2017 08/03/2017 Inactive ipratropium-albuterol 0.5 mg-3 mg(2.5 mg base)/3 mL ne bulization soln RxNorm: 9982545 1 Unit Dose INH Q4H as needed 05/05/2017 01/04/2019 Inactive metformin ER 1,000 mg tablet,extended release 24hr RxNorm: 1 264878 1 Tablet(s) PO BID 04/28/2017 11/17/2017 Inactive [SAVINGS FOR NON -COVERED DRUGS -- BIN:705362, PCN: ASPROD1, Group: XXXXX, ID# [id number], Questions: . THIS IS NOT INSURANCE.] diltiazem ER (XR/XT) 240 mg capsule,extended release 2 4 hr, controlled RxNorm: 190636 TAKE ONE CAPSULE BY MOUTH EVERY DAY 04/15/2017 05/04/2017 Inact avani prednisone 20 mg tablet RxNorm: 721112 1 Tablet(s) PO QD 04/10/2017 1 06/14/2016 Inactive Breo Ellipta 200 mcg-25 mcg/dose powder for inhalation RxNor m: 3500847 1 Puff(s) INH QD 04/10/2017 02/09/2018 Inactive Breo Ellipta 200 mcg-25 mcg/dose powder for inhalation RxNor m: 3761170 1 Puff(s) INH QD 04/10/2017 04/09/2017 Inactive Levaquin 500 mg tablet RxNorm: 919247 1 Tablet(s) PO QD 04/10/2017 Inactive metoprolol succinate ER 100 mg tablet,extended release 24 hr RxNorm: 297165 TAKE ONE TABLET BY MOUTH TWICE A DAY 03/24/2017 12/18/2017 Inactive fenofibrate micronized 134 mg capsule RxNorm: 458560 1 Capsule( s) PO QD 01/16/2017 07/21/2017 Inactive Benicar HCT 40 mg-25 mg tablet RxNorm: 905390 1 Tablet(s) PO QD 11/17/2017 Inactive [SAVINGS FOR NON-COVERED JESU GS -- BIN:540973, PCN: ASPROD1, Group: XXXXX, ID# [id number], Questions: . THIS IS NOT INSURANCE.] metoprolol succinate ER 100 mg tablet,extended release 24 hr RxNorm: 113474 1 Tablet(s) PO BID 10/16/2016 03/23/2017 Inactive diltiazem ER (XR/XT) 240 mg capsule,extended release 2 4 hr, controlled RxNorm: 673681 1 Capsule(s) PO QD 10/16/2016 04/13/2017 Inactive [SAVINGS FOR NON- COVERED DRUGS -- BIN:890956, PCN: ASPROD1, Group: XXXXX, ID# [id number], Questions: . THIS IS NOT INSURANCE.] metformin ER 1,000 mg tablet,extended release 24hr RxNorm: 8 70445 1 Tablet(s) PO BID 10/16/2016 04/28/2017 Inactive [SAVINGS FOR NON -COVERED DRUGS -- BIN:991151, PCN: ASPROD1, Group: XXXXX, ID# [id number], Questions: . THIS IS NOT INSURANCE.] Zocor 40 mg tablet RxNorm: 531458 1 Tablet(s) PO QHS 10/16/201607/21 Inactive GB Singulair 10 mg tablet RxNorm: 439881 Tablet(s) 1 TABLET(S) PO QHS 08/27/2016 09/02/2018 Inactive prednisone 20 mg tablet RxNorm: 783927 1 Tablet(s) PO QD 08/27/2016 0 08/31/2016 Inactive ipratropium-albuterol 0.5 mg-3 mg(2.5 mg base)/3 mL ne bulization soln RxNorm: 6065897 1 Unit Dose INH Q4H as needed 08/27/2016 05/04/2017 Inactive metoprolol succinate ER 100 mg tablet,extended release 24 hr RxNorm: 924882 TAKE ONE TABLET BY MOUTH TWICE A DAY 08/05/2016 10/16/2016 Inactive duloxetine 60 mg capsule,delayed release RxNorm: 599501 TAKE ONE CAPSULE BY MOUTH ONCE DAILY 08/05/2016 06/24/2017 Inactive prednisone 20 mg tablet RxNorm: 202197 1 Tablet(s) PO QD 06/14/2016 0 06/18/2016 Inactive ipratropium-albuterol 0.5 mg-3 mg(2.5 mg base)/3 mL ne bulization soln RxNorm: 3153760 1 Unit Dose INH Q4H as needed 06/13/2016 08/26/2016 Inactive Levaquin 500 mg tablet RxNorm: 747770 1 Tablet(s) PO QD 06/13/2016 Inactive metoprolol succinate ER 100 mg tablet,extended release 24 hr RxNorm: 899056 1 Tablet(s) PO BID replaces 50mg dose 05/14/2016 07/12/2016 Inactive metoprolol succinate ER 50 mg tablet,extended release 24 hr RxNorm: 379538 1 Tablet(s) PO BID 04/29/2016 05/13/2016 Inactive prednisone 20 mg tablet RxNorm: 340511 1 Tablet(s) PO BID 04/22/2016 04/21/2016 Inactive prednisone 20 mg tablet RxNorm: 669936 1 Tablet(s) PO BID 04/22/2016 04/28/2016 Inactive Singulair 10 mg tablet RxNorm: 349536 Tablet(s) 1 TABLET(S) PO QHS 04/01/2016 08/26/2016 Inactive metoprolol succinate ER 25 mg tablet,extended release 24 hr RxNorm: 793588 1 Tablet(s) PO QHS for blood pressure 04/01/2016 05/13/2016 Inactive fenofibrate micronized 134 mg capsule RxNorm: 524261 TA KE ONE CAPSULE BY MOUTH DAILY 01/25/2016 01/16/2017 Inactive duloxetine 60 mg capsule,delayed release RxNorm: 429768 TAKE ONE CAPSULE BY MOUTH ONCE DAILY 01/25/2016 08/04/2016 Inactive Zocor 40 mg tablet RxNorm: 880640 TAKE ONE TABLET BY MOUTH AT B EDTIME 11/13/2015 10/16/2016 Inactive GB metformin ER 1,000 mg tablet,extended release 24hr RxNorm: 8 20000 1 Tablet(s) PO BID 10/26/2015 10/16/2016 Inactive [SAVINGS FOR NON -COVERED DRUGS -- BIN:524524, PCN: ASPROD1, Group: XXXXX, ID# [id number], Questions: . THIS IS NOT INSURANCE.] Benicar HCT 40 mg-25 mg tablet RxNorm: 652126 1 Tablet(s) PO QD 06/201511/11/2016 Inactive [SAVINGS FOR NON-COVERED JESU GS -- BIN:227636, PCN: ASPROD1, Group: XXXXX, ID# [id number], Questions: . THIS IS NOT INSURANCE.] diltiazem ER (XR/XT) 240 mg capsule,extended release,control led RxNorm: 441152 1 Capsule(s) PO QD 10/26/2015 10/15/2016 Inactive [SAVINGS FOR NO N-COVERED DRUGS -- BIN:174678, PCN: ASPROD1, Group: XXXXX, ID# [id number], Questions: . THIS IS NOT INSURANCE.] Singulair 10 mg tablet RxNorm: 072729 1 TABLET(S) PO QHS 09/18/2015 1 05/31/2015 Inactive Viagra 100 mg tablet RxNorm: 326502 1 Tablet(s) PO as needed 201511/23/2018 Inactive Singulair 10 mg tablet RxNorm: 518717 1 Tablet(s) PO QHS 08/16/2015 0 08/15/2015 Inactive Singulair 10 mg tablet RxNorm: 930964 1 Tablet(s) PO QHS 08/16/2015 0 09/14/2015 Inactive duloxetine 60 mg capsule,delayed release RxNorm: 945605 1 Capsule(s) PO QD replaces fluoxetine 08/14/2015 01/24/2016 Inactive ipratropium-albuterol 0.5 mg-3 mg(2.5 mg base)/3 mL ne bulization soln RxNorm: 2808753 1 Unit Dose INH Q4H as needed 08/14/2015 06/12/2016 Inactive prednisone 20 mg tablet RxNorm: 163079 Take 3 tabs PO o nce daily x 3 days, then 2 tabs PO once daily x 3 days and then 1 tab PO once daily x 3 days 08/09/2015 08/13/2015 Inactive Symbicort 160 mcg-4.5 mcg/actuation HFA aerosol inhaler RxNo rm: 4777660 2 Puff(s) INH BID 08/09/2015 08/13/2015 Inactive Zocor 40 mg tablet RxNorm: 336809 1 Tablet(s) PO QHS 05/23/201511/11 Inactive [AttnRPh: Saving apply/adjudicate RxGRP: SG20 RxBIN:[id number] RxPCN: ID#:[id number]] Benicar HCT 40 mg-25 mg tablet RxNorm: 415049 1 Tablet(s) PO QD 10/26/2015 Inactive [SAVINGS FOR NON-COVERED JESU GS -- BIN:749068, PCN: ASPROD1, Group: XXXXX, ID# [id number], Questions: . THIS IS NOT INSURANCE.] diltiazem ER (XR/XT) 240 mg capsule,extended release,control led RxNorm: 361093 1 Capsule(s) PO QD 04/24/2015 10/20/2015 Inactive [SAVINGS FOR NO N-COVERED DRUGS -- BIN:507586, PCN: ASPROD1, Group: XXXXX, ID# [id number], Questions: . THIS IS NOT INSURANCE.] fluoxetine 40 mg capsule RxNorm: 858276 1 Capsule(s) PO QD 04/24/20 15 08/13/2015 Inactive [SAVINGS FOR NON-COVERED JESU GS -- BIN:429211, PCN: ASPROD1, Group: XXXXX, ID# [id number], Questions: . THIS IS NOT INSURANCE.] Zocor 40 mg tablet RxNorm: 900533 TABLET(S) 1 TABLET(S) PO QHS 01/2505/23/2015 Inactive [AttnRPh: Saving apply/adjud icate RxGRP:SG20 RxBIN:[id number] RxPCN: ID#:[id number]] metformin ER 1,000 mg tablet,extended release 24hr RxNorm: 8 90144 1 TABLET(S) PO BID 01/29/2015 10/26/2015 Inactive [SAVINGS FOR NON -COVERED DRUGS -- BIN:416144, PCN: ASPROD1, Group: XXXXX, ID# XXXXXXX, Questions: . THIS IS NOT INSURANCE.] fenofibrate micronized 134 mg capsule RxNorm: 968467 1 CAPSULE( S) PO QD 01/23/2015 01/17/2016 Inactive fenofibrate micronized 134 mg capsule RxNorm: 241206 1 Capsule( s) PO QD 11/07/2014 01/22/2015 Inactive diltiazem ER (XR/XT) 240 mg capsule,extended release,control led RxNorm: 545563 1 Capsule(s) PO QD 10/24/2014 04/24/2015 Inactive [SAVINGS FOR NO N-COVERED DRUGS -- BIN:273754, PCN: ASPROD1, Group: XXXXX, ID# XXXXXXX, Questions: . THIS IS NOT INSURANCE.] Benicar HCT 40 mg-25 mg tablet RxNorm: 054783 1 Tablet(s) PO QD 05/201404/24/2015 Inactive [SAVINGS FOR NON-COVERED JESU GS -- BIN:804844, PCN: ASPROD1, Group: XXXXX, ID# XXXXXXX, Questions: . THIS IS NOT INSURANCE.] fluoxetine 40 mg capsule RxNorm: 409267 1 Capsule(s) PO QD 10/25/19 15 04/24/2015 Inactive [SAVINGS FOR NON-COVERED JESU GS -- BIN:543810, PCN: ASPROD1, Group: XXXXX, ID# [id number], Questions: . THIS IS NOT INSURANCE.] azithromycin 500 mg tablet RxNorm: 383268 1 Tablet(s) PO QD 015 09/27/2014 Inactive [SAVINGS FOR NON-COVERED JESU GS -- BIN:673244, PCN: ASPROD1, Group: XXXXX, ID# XXXXXXX, Questions: . THIS IS NOT INSURANCE.] albuterol sulfate 2.5 mg/3 mL (0.083 %) solution for n ebulization RxNorm: 421644 3 Milliliter(s) INH ONE VIAL VIA NEBULIZER EVERY 4 HOURS 015 11/19/2014 Inactive [AttnRPh: Saving apply/adjudicate RxGRP: SG20 RxBIN:[id number] RxPCN:HT ID#:[id number]] Zocor 40 mg tablet RxNorm: 259859 TABLET(S) 1 TABLET(S ) PO QHS 1 TABLET(S) PO QHS 09/04/2014 02/21/2015 Inactive [AttnRPh: Saving apply/adjudicate RxGRP:SG20 RxBIN:[id number] RxPCN:HT ID#:[id number]] metformin ER 1,000 mg tablet,extended release 24hr RxNorm: 8 82920 1 Tablet(s) PO BID 08/04/2014 01/28/2015 Inactive [SAVINGS FOR NON -COVERED DRUGS -- BIN:839566, PCN: ASPROD1, Group: XXXXX, ID# XXXXXXX, Questions: . THIS IS NOT INSURANCE.] Bromfed DM 2 mg-30 mg-10 mg/5 mL syrup RxNorm: 5579307 1 -2 Teaspoon(s) PO Q4H as needed for cough 06/10/2014 06/19/2014 Inactive [SAVINGS FOR UN INSURED PATIENTS -- BIN:970634, PCN: ASPROD1, Group: AME08, ID# [id number], Process claim through [employer], for questions: . THIS IS NOT INSURANCE.] Augmentin 875 mg-125 mg tablet RxNorm: 280228 1 Tablet(s) PO Q12H 0 06/10/2014 06/19/2014 Inactive [AttnRPh: Saving apply/adjud icate RxGRP:SG20 RxBIN:[id number] RxPCN:HT ID#:[id number]] Zocor 40 mg tablet RxNorm: 632005 Tablet(s) 1 TABLET(S ) PO QHS 1 TABLET(S) PO QHS 05/25/2014 08/22/2014 Inactive [AttnRPh: Saving apply/adjudicate RxGRP:SG20 RxBIN:[id number] RxPCN:HT ID#:[id number]] fluoxetine 40 mg capsule RxNorm: 803324 1 Capsule(s) PO QD 04/29/20 14 10/24/2014 Inactive [AttnRPh: Saving apply/adjud icate RxGRP:SG20 RxBIN:[id number] RxPCN:HT ID#:[id number]] diltiazem ER (XR/XT) 240 mg capsule,extended release,control led RxNorm: 460329 1 Capsule(s) PO QD 04/29/2014 10/24/2014 Inactive [AttnRPh: Leonelin g apply/adjudicate RxGRP:SG20 RxBIN:[id number] RxPCN:HT ID#:[id number]] Benicar HCT 40 mg-25 mg tablet RxNorm: 117324 1 Tablet(s) PO QD 09/201310/24/2014 Inactive [AttnRPh: Saving apply/adjud icate RxGRP:SG20 RxBIN:[id number] RxPCN:HT ID#:[id number]] Zocor 40 mg tablet RxNorm: 048034 1 TABLET(S) PO QHS 1 TABLET(S ) PO QHS 03/07/2014 05/25/2014 Inactive [AttnRPh: Saving chelsie ly/adjudicate RxGRP:SG20 RxBIN:[id number] RxPCN:HT ID#:[id number]] Zocor 40 mg tablet RxNorm: 180859 1 Tablet(s) PO QHS 1 TABLET(S ) PO QHS 12/06/2013 03/05/2014 Inactive [AttnRPh: Saving chelsie ly/adjudicate RxGRP:SG20 RxBIN:[id number] RxPCN:HT ID#:[id number]] diltiazem ER (XR/XT) 240 mg capsule,extended release,control led RxNorm: 865569 1 Capsule(s) PO QD 10/25/2013 04/22/2014 Inactive [AttnRPh: Leonelin g apply/adjudicate RxGRP:SG20 RxBIN:[id number] RxPCN:HT ID#:[id number]] fluoxetine 40 mg capsule RxNorm: 792844 1 Capsule(s) PO QD 10/26/19 14 04/22/2014 Inactive [AttnRPh: Saving apply/adjud icate RxGRP:SG20 RxBIN:[id number] RxPCN: ID#:[id number]] Zocor 40 mg tablet RxNorm: 618562 1 Tablet(s) PO QHS 1 TABLET(S ) PO QHS 09/13/2013 12/06/2013 Inactive metformin ER 1,000 mg tablet,extended release 24hr RxNorm: 8 26917 Tablet(s) PO TAKE 1 TABLET BY MOUTH TWICE DAILY (REPLACES 500MG DOSE) 07/26/201303/2015 Inactive diltiazem ER (XR/XT) 240 mg capsule,extended release,control led RxNorm: 541956 1 Capsule(s) PO QD 05/03/2013 10/25/2013 Inactive fluoxetine 40 mg capsule RxNorm: 428740 1 Capsule(s) PO QD 05/03/20 13 10/25/2013 Inactive Benicar HCT 40 mg-25 mg tablet RxNorm: 538290 1 Tablet(s) PO QD 01/201304/29/2014 Inactive Zocor 40 mg tablet RxNorm: 282377 1 Tablet(s) PO QHS 12/10/201209/13 Inactive fluoxetine 40 mg capsule RxNorm: 879514 1 Capsule(s) PO QD 11/10/19 13 05/03/2013 Inactive diltiazem ER (XR/XT) 240 mg capsule,extended release,control led RxNorm: 693898 1 Capsule(s) PO QD 11/09/2012 05/03/2013 Inactive Benicar HCT 40 mg-25 mg tablet RxNorm: 737385 1 Tablet(s) PO QD 05/03/2013 Inactive metformin ER 1,000 mg tablet,extended release 24hr RxNorm: 8 72658 Tablet(s) PO TAKE 1 TABLET BY MOUTH TWICE DAILY (REPLACES 500MG DOSE) 08/05/201206/2013 Inactive Zocor 40 mg tablet RxNorm: 807143 1 Tablet(s) PO QHS 06/15/201212/09 Inactive fluoxetine 40 mg capsule RxNorm: 350188 1 Capsule(s) PO QD 05/15/20 12 11/08/2012 Inactive Neurontin 600 mg Tab RxNorm: 986477 1 Tablet(s) PO QHS 12/03/2011 Inactive metformin ER 1,000 mg tablet,extended release 24hr RxNorm: 8 91968 1 Tablet(s) PO BID replaces 500mg dose 12/03/2011 07/26/2013 Inactive Zocor 40 mg tablet RxNorm: 933316 1 Tablet(s) PO QHS 12/03/201106/15 Inactive fluoxetine 20 mg capsule RxNorm: 628127 1 Capsule(s) PO QD 12/03/19 12 05/24/2012 Inactive diltiazem ER (XR/XT) 240 mg capsule,extended release,control led RxNorm: 704840 1 Capsule(s) PO QD 11/15/2011 11/09/2012 Inactive Benicar HCT 40 mg-25 mg tablet RxNorm: 871619 1 Tablet(s) PO QD 02/16/2012 Inactive metformin ER 500 mg 24 hr Tab RxNorm: 826996 1 Tablet(s) PO BID 12/02/2011 Inactive Zocor 40 mg Tab RxNorm: 287245 1 Tablet(s) PO QHS 05/30/2011 11/25/19 12 Inactive fluoxetine 20 mg Cap RxNorm: 590663 1 Capsule(s) PO QD 05/28/2011 Inactive Neurontin 600 mg Tab RxNorm: 953421 1 Tablet(s) PO QHS 05/28/2011 Inactive Neurontin 600 mg Tab RxNorm: 890153 1 Tablet(s) PO QHS 02/22/201106/2011 Inactive Neurontin 600 mg Tab RxNorm: 512301 1 Tablet(s) PO QHS 01/14/2011 Inactive Neurontin 300 mg Cap RxNorm: 108139 1 Capsule(s) PO QHS 01/14/2011 Inactive Neurontin 600 mg Tab RxNorm: 748579 1 Tablet(s) PO QHS 01/14/2011 Inactive Medrol (Vipul) 4 mg Tabs in a Dose Pack RxNorm: 444842 Tablet(s) PO 0 01/02/2011 08/28/2011 Inactive as directed fluoxetine 20 mg Cap RxNorm: 996000 1 Capsule(s) PO QD 12/10/201006/2011 Inactive Zocor 40 mg Tab RxNorm: 214852 1 Tablet(s) PO QHS 12/03/2010 05/29/19 12 Inactive Neurontin 300 mg Cap RxNorm: 302399 1 Capsule(s) PO QHS 12/03/2010 Inactive Septra DS 800 mg-160 mg Tab RxNorm: 086144 1 Tablet(s) PO BID 11/2912/08/2010 Inactive diltiazem ER (XR/XT) 240 mg Continuous Release Cap RxNorm: 8 12495 1 Capsule(s) PO QD 11/20/2010 11/15/2011 Inactive Neurontin 300 mg Cap RxNorm: 243002 1 Capsule(s) PO QHS 11/06/2010 Inactive Neurontin 300 mg Cap RxNorm: 365009 1 Capsule(s) PO QHS 11/06/2010 Inactive Celebrex 200 mg Cap RxNorm: 311871 1 Capsule(s) PO BID 10/24/2010 Inactive fluoxetine 20 mg Cap RxNorm: 620919 1 Capsule(s) PO QD 06/07/201003/2011 Inactive Zocor 40 mg Tab RxNorm: 179229 1 Tablet(s) PO QHS 06/05/2010 12/02/19 11 Inactive Benicar HCT 40 mg-25 mg Tab RxNorm: 385776 1 Tablet(s) PO QD 200908/21/2011 Inactive Diltiazem 240 mg Continuous Release Cap RxNorm: 042588 1 Capsul e(s) PO QD 11/09/2009 09/02/2018 Inactive Avelox 400 mg Tab RxNorm: 320369 1 Tablet(s) PO QD 08/22/2009 010 Inactive ProAir HFA 90 mcg/actuation aerosol inhaler RxNorm: 210896 2 Puff(s) INH Q4H as needed No Start Date Active tramadol 50 mg tablet RxNorm: 450300 1-2 Tablet(s) PO TID as ne eded for pain No Start Date Active Tylenol Arthritis 650 mg Tab RxNorm: 2891446 2 Tablet(s) PO QD No Sta rt Date Active Celebrex 200 mg Cap RxNorm: 428828 1 Capsule(s) PO BID No Start Date 08/08/2015 Inactive Medrol (Vipul) 4 mg Tabs in a Dose Pack RxNorm: 932934 Tablet(s) PO N o Start Date 01/01/2011 Inactive as directed Promethazine-DM 6.25 mg-15 mg/5 mL Syrup RxNorm: 722303 1-2 Teaspoon(s) PO Q4H prn cough No Start Date 08/28/2011 Inactive Claritin 10 mg tablet RxNorm: 405559 1 Tablet(s) PO QD No Start Date 08/08/2015 Inactive Fjrttzjjgx-Gqcxk-XVP-James-115HC Oral RxNorm: Oral No Start Da te 03/28/2019 Inactive Breo Ellipta 200 mcg-25 mcg/dose powder for inhalation RxNor m: 6388145 1 Puff(s) INH QD No Start Date 04/09/2017 Inactive metformin 500 mg Tab RxNorm: 017282 1 Tablet(s) PO QD No Start Date 0 08/17/2011 Inactive Diltiazem 240 mg Continuous Release Cap RxNorm: 296376 1 Capsul e(s) PO BID No Start Date 11/08/2009 Inactive fluoxetine 20 mg Cap RxNorm: 962487 1 Capsule(s) PO QD No Start Date 06/07/2010 Inactive Multivitamin & Mineral Formula Oral RxNorm: Oral No Start Da te 03/28/2019 Inactive Medrol (Vipul) 4 mg tablets in a dose pack RxNorm: 483662 Tablet(s) PO as directed No Start Date 05/28/2012 Inactive Fish Oil 1,000 mg Cap RxNorm: 1 Capsule(s) PO QD No Start Date 07/2018 Inactive Nexium 40 mg Cap RxNorm: 166315 1 Capsule(s) PO QD No Start Date 07/24 Inactive fluticasone 50 mcg/actuation nasal spray,suspension RxNorm: 4017281 2 [place] NASAL QD to each nostril No Start Date 08/03/2017 Inactive Viagra 100 mg tablet RxNorm: 722744 1 Tablet(s) PO as needed No Sta rt Date 09/17/2015 Inactive prednisone 20 mg tablet RxNorm: 552995 1 Tablet(s) PO B ID for 4 days then 1 po daily for 4 days No Start Date 11/23/2018 Inactive Benicar HCT 40 mg-25 mg Tab RxNorm: 748000 1 Tablet(s) PO QD No Sta rt [...] Date S ervice Location MICROALBUMIN URINE RANDOM 90117 MICRL MG/L 5.8 MG/L 03/2011 Unknown MICROALBUMIN URINE RANDOM 17266 XM.ALB/CRE 5.2 MG/GCR Unknown MICROALBUMIN URINE RANDOM 26074 CREAT MG/D 111 MG/DL 03/2011 Unknown MICROALBUMIN URINE RANDOM 26144 CRE/100 1.11 G/L 12/24 Unknown Procedures Procedure Codes Date FLU VACC PRSV FREE INC ANTIG 65 AND OLDER CPT-4: 21082 03/04/2019 ADMIN PNEUMOCOCCAL VACCINE CPT-4: G0009 03/04/2019 ADMIN INFLUENZA VIRUS VAC CPT-4: G0008 03/04/2019 FLU VACC PRSV FREE INC ANTIG 65 AND OLDER CPT-4: 47531 03/04/2019 PNEUMOCOCCAL VACC 23 [facility]MON IM CPT-4: 85790 03/04/2019 THER/PROPH/DIAG INJ SC/IM CPT-4: 89295 08/11/2018 TRIAMCINOLONE ACET INJ NOS CPT-4: J3301 08/11/2018 DEXAMETHASONE SODIUM PHOS CPT-4: J1100 08/11/2018 THER/PROPH/DIAG INJ SC/IM CPT-4: 37665 07/16/2018 METHYLPREDNISOLONE INJECTION CPT-4: J2930 07/16/2018 INFLUENZA ASSAY W/OPTIC CPT-4: 26197 07/16/2018 THER/PROPH/DIAG INJ SC/IM CPT-4: 95754 07/13/2018 TRIAMCINOLONE ACET INJ NOS CPT-4: J3301 07/13/2018 THER/PROPH/DIAG INJ SC/IM CPT-4: 74131 05/04/2018 METHYLPREDNISOLONE INJECTION CPT-4: J2930 05/04/2018 FLU VACC PRSV FREE INC ANTIG 65 AND OLDER CPT-4: 81877 02/10/2018 PNEUMOCOCCAL VACC 13 R[facility] IM CPT-4: 49299 02/10/2018 ADMIN INFLUENZA VIRUS VAC CPT-4: G0008 02/10/2018 ADMIN PNEUMOCOCCAL VACCINE CPT-4: G0009 02/10/2018 THER/PROPH/DIAG INJ SC/IM CPT-4: 50365 09/09/2017 TRIAMCINOLONE ACET INJ NOS CPT-4: J3301 09/09/2017 ALBUTEROL NON-COMP UNIT CPT-4: J7613 04/10/2017 AIRWAY INHALATION TREATMENT CPT-4: 11219 04/10/2017 PRESCRIP TRANSMIT VIA ERX SY CPT-4: G8553 04/10/2017 FLU VACC PRSV FREE INC ANTIG 65 AND OLDER CPT-4: 56474 03/28/2017 ADMIN INFLUENZA VIRUS VAC CPT-4: G0008 03/28/2017 PRESCRIP TRANSMIT VIA ERX SY CPT-4: G8553 08/27/2016 PRESCRIP TRANSMIT VIA ERX SY CPT-4: G8553 06/14/2016 ALBUTEROL NON-COMP UNIT CPT-4: J7613 06/13/2016 AIRWAY INHALATION TREATMENT CPT-4: 75455 06/13/2016 PRESCRIP TRANSMIT VIA ERX SY CPT-4: [...] CPT-4: G8553 11/07/2014 THER/PROPH/DIAG INJ SC/IM CPT-4: 75297 09/21/2014 METHYLPREDNISOLONE INJECTION CPT-4: J2930 09/21/2014 PRESCRIP TRANSMIT VIA ERX SY CPT-4: G8553 09/21/2014 PRESCRIP TRANSMIT VIA ERX SY CPT-4: G8553 06/10/2014 URINALYSIS NONAUTO W/O SCOPE CPT-4: 17030 06/01/2012 PRESCRIP TRANSMIT VIA ERX SY CPT-4: G8553 05/25/2012 PRESCRIP TRANSMIT VIA ERX SY CPT-4: G8553 12/03/2011 CUR TOBACCO NON-USER CPT-4: G8457 05/30/2011 PRESCRIP TRANSMIT VIA ERX SY CPT-4: G8553 05/30/2011 URINALYSIS NONAUTO W/O SCOPE CPT-4: 71561 01/01/2011 URINE CULTURE/ COLONY COUNT CPT-4: 31005 01/01/2011 CUR TOBACCO NON-USER CPT-4: G8457 01/01/2011 [...] 1: 114/68 Code: 8480-6 BMI: 43.5 Code: 44731-6 Heart Rate 1: 52 bpm Height: 6'1" [...] 1: 136/72 Code: 8480-6 BMI: 42.7 Code: 97862-8 Heart Rate 1: 60 bpm Height: 6'1" Respiratory Rate: 22 bpm SpO2: 95% Tempera ture: 37.1 (C) / 98.7 (F) Weight: 324 lbs 02/10/2018 Blood Pressure 1: 146/78 Code: 8480-6 BMI: 42.4 Code: 60214-1 Heart Rate 1: 64 bpm Height: 6'1" Respiratory Rate: 22 bpm SpO2: 95% Tempera ture: 36.5 (C) / 97.7 (F) Weight: 321 lbs 11/05/2017 Blood Pressure 1: 128/84 Code: 8480-6 BMI: 42.9 Code: 29448-2 Heart Rate 1: 52 bpm Height: 6'1" Respiratory Rate: 22 bpm SpO2: 95% Tempera ture: 36.3 (C) / 97.3 (F) Weight: 325 lbs 09/09/2017 Blood Pressure 1: 162/90 Code: 8480-6 BMI: 42.5 Code: 28174-6 Heart Rate 1: 60 bpm Height: 6'1" Respiratory Rate: 24 bpm SpO2: 95% Tempera ture: 36.4 (C) / 97.6 (F) Weight: 322 lbs 08/07/2017 Blood Pressure 1: 152/90 Code: 8480-6 BMI: 42.2 Code: 54672-2 Heart Rate 1: 60 bpm Height: 6'1" Respiratory Rate: 26 bpm SpO2: 94% Tempera ture: 36.6 (C) / 97.8 (F) Weight: 320 lbs 08/04/2017 Blood Pressure 1: 150/86 Code: 8480-6 BMI: 42.7 Code: 33898-4 Heart Rate 1: 64 bpm Height: 6'1" Respiratory Rate: 20 bpm SpO2: 94% Tempera ture: 36.3 (C) / 97.3 (F) Weight: 324 lbs 06/04/2017 Blood Pressure 1: 164/90 Code: 8480-6 Heart Rate 1: 60 bpm Respiratory Rate: 24 bpm SpO2: 94% Temperature: 36.8 (C) / 98.3 (F) 06/02/2017 Blood Pressure 1: 162/80 Code: 8480-6 BMI: 42.9 Code: 60169-8 Heart Rate 1: 66 bpm Height: 6'1" Respiratory Rate: 22 bpm SpO2: 98% Tempera ture: 36.6 (C) / 97.8 (F) Weight: 325 lbs 05/05/2017 Blood Pressure 1: 164/94 Code: 8480-6 BMI: 41.4 Code: 66518-0 Heart Rate 1: 64 bpm Height: 6'1" Respiratory Rate: 22 bpm SpO2: 95% Tempera ture: 36.4 (C) / 97.5 (F) Weight: 314 lbs 04/10/2017 Blood Pressure 1: 136/78 Code: 8480-6 BMI: 42.0 Code: 54110-0 Heart Rate 1: 76 bpm Height: 6'1" Respiratory Rate: 24 bpm SpO2: 92% Tempera ture: 35.9 (C) / 96.7 (F) Weight: 318 lbs 02/03/2017 Blood Pressure 1: 134/82 Code: 8480-6 BMI: 41.7 Code: 37943-3 Heart Rate 1: 72 bpm Height: 6'1" Respiratory Rate: 24 bpm SpO2: 95% Tempera ture: 36.1 (C) / 97.0 (F) Weight: 316 lbs 10/30/2016 Blood Pressure 1: 126/74 Code: 8480-6 BMI: 41.3 Code: 54425-6 Heart Rate 1: 68 bpm Height: 6'1" Respiratory Rate: 20 bpm Temperature: 37 .1 (C) / 98.8 (F) Weight: 313 lbs 08/30/2016 Blood Pressure 1: 146/80 Code: 8480-6 BMI: 41.7 Code: 70506-3 Heart Rate 1: 64 bpm Height: 6'1" Respiratory Rate: 24 bpm SpO2: 94% Tempera ture: 36.6 (C) / 97.8 (F) Weight: 316 lbs 08/27/2016 Blood Pressure 1: 12478 Code: 8480-6 Heart Rate 1: 66 bpm Height: 6'2" Respiratory Rate: 18 bpm SpO2: 94% Temperature: 36.6 (C) / 97.8 (F) Weight: 07/02/2016 Blood Pressure 1: 12678 Code: 8480-6 BMI: 41.4 Code: 00784-4 Heart Rate 1: 68 bpm Height: 6'1" Respiratory Rate: 24 bpm SpO2: 94% Tempera ture: 36.6 (C) / 97.8 (F) Weight: 314 lbs 06/14/2016 Blood Pressure 1: 146/82 Code: 8480-6 Heart Rate 1: 80 bpm Respiratory Rate: 20 bpm SpO2: 95% Temperature: 37.3 (C) / 99.2 (F) 06/13/2016 Blood Pressure 1: 146/84 Code: 8480-6 BMI: 40.5 Code: 38988-1 Heart Rate 1: 66 bpm Height: 6'1" Respiratory Rate: 28 bpm SpO2: 93% Tempera ture: 35.8 (C) / 96.4 (F) Weight: 307 lbs 05/14/2016 Blood Pressure 1: 146/90 Code: 8480-6 BMI: 41.2 Code: 39957-7 Heart Rate 1: 68 bpm Height: 6'1" Respiratory Rate: 26 bpm Temperature: 36 .8 (C) / 98.2 (F) Weight: 312 lbs 04/29/2016 Blood Pressure 1: 152/90 Code: 8480-6 BMI: 41.0 Code: 84087-9 Heart Rate 1: 68 bpm Height: 6'1" Respiratory Rate: 26 bpm SpO2: 94% Tempera ture: 36.1 (C) / 96.9 (F) Weight: 311 lbs 04/22/2016 Blood Pressure 1: 152/94 Code: 8480-6 BMI: 40.9 Code: 04522-9 Heart Rate 1: 68 bpm Height: 6'1" Respiratory Rate: 24 bpm SpO2: 94% Tempera ture: 36.2 (C) / 97.2 (F) Weight: 310 lbs 04/01/2016 Blood Pressure 1: 156/78 Code: 8480-6 BMI: 40.6 Code: 15248-4 Heart Rate 1: 84 bpm Height: 6'1" Respiratory Rate: 22 bpm SpO2: 95% Tempera ture: 37.1 (C) / 98.7 (F) Weight: 308 lbs 11/30/2015 Blood Pressure 1: 142/80 Code: 8480-6 BMI: 40.5 Code: 67338-9 Heart Rate 1: 88 bpm Height: 6'1" Respiratory Rate: 22 bpm Temperature: 36 .2 (C) / 97.2 (F) Weight: 307 lbs 08/29/2015 Blood Pressure 1: 132/70 Code: 8480-6 BMI: 40.0 Code: 17648-4 Heart Rate 1: 76 bpm Height: 6'1" Respiratory Rate: 24 bpm SpO2: 96% Tempera ture: 36.7 (C) / 98.0 (F) Weight: 303 lbs 08/14/2015 Blood Pressure 1: 126/80 Code: 8480-6 BMI: 39.4 Code: 96570-6 Heart Rate 1: 92 bpm Height: 6'1" Respiratory Rate: 24 bpm SpO2: 94% Tempera ture: 37.8 (C) / 100.0 (F) Weight: 299 lbs 08/09/2015 Blood Pressure 1: 146/82 Code: 8480-6 Heart Rate 1: 82 bpm Respiratory Rate: 22 bpm SpO2: 93% Temperature: 35.9 (C) / 96.6 (F) We ight: 310 lbs 05/22/2015 Blood Pressure 1: 156/76 Code: 8480-6 BMI: 41.0 Code: 58969-4 Heart Rate 1: 100 bpm Height: 6'1" Respiratory Rate: 22 bpm Temperature: 37 .2 (C) / 98.9 (F) Weight: 311 lbs 02/13/2015 Blood Pressure 1: 166/90 Code: 8480-6 BMI: 41.2 Code: 07015-5 Heart Rate 1: 72 bpm Height: 6'1" Respiratory Rate: 24 bpm SpO2: 93% Tempera ture: 36.9 (C) / 98.5 (F) Weight: 312 lbs 11/07/2014 Blood Pressure 1: 134/70 Code: 8480-6 BMI: 40.5 Code: 06396-5 Heart Rate 1: 76 bpm Height: 6'1" Respiratory Rate: 24 bpm Temperature: 36 .9 (C) / 98.4 (F) Weight: 307 lbs 10/04/2014 Blood Pressure 1: 144/86 Code: 8480-6 BMI: 40.1 Code: 25878-2 Heart Rate 1: 76 bpm Height: 6'1" Respiratory Rate: 28 bpm Temperature: 36 .6 (C) / 97.9 (F) Weight: 304 lbs 09/22/2014 Blood Pressure 1: 142/80 Code: 8480-6 BMI: 40.0 Code: 22576-9 Heart Rate 1: 80 bpm Height: 6'1" Respiratory Rate: 22 bpm SpO2: 96% Tempera ture: 36.6 (C) / 97.8 (F) Weight: 303 lbs 09/21/2014 Blood Pressure 1: 160/66 Code: 8480-6 BMI: 40.0 Code: 88392-3 Heart Rate 1: 90 bpm Height: 6'1" Respiratory Rate: 26 bpm SpO2: 94% Tempera ture: 35.7 (C) / 96.2 (F) Weight: 303 lbs 06/28/2014 Blood Pressure 1: 132/80 Code: 8480-6 BMI: 41.0 Code: 03822-9 Heart Rate 1: 64 bpm Height: 6' Respiratory Rate: 20 bpm Temperature: 36 .7 (C) / 98.0 (F) Weight: 302 lbs 06/10/2014 Blood Pressure 1: 152/70 Code: 8480-6 BMI: 41.1 Code: 17524-6 Heart Rate 1: 76 bpm Height: 6' Respiratory Rate: 20 bpm Temperature: 36 .6 (C) / 97.8 (F) Weight: 303 lbs 03/29/2014 Blood Pressure 1: 132/78 Code: 8480-6 BMI: 40.6 Code: 84001-9 Heart Rate 1: 84 bpm Height: 6' Respiratory Rate: 22 bpm Temperature: 37 .1 (C) / 98.8 (F) Weight: 299 lbs 11/30/2013 Blood Pressure 1: 136/84 Code: 8480-6 BMI: 39.2 Code: 15001-1 Heart Rate 1: 76 bpm Height: 6' Respiratory Rate: 20 bpm Temperature: 36 .8 (C) / 98.2 (F) Weight: 289 lbs 08/03/2013 Blood Pressure 1: 144/80 Code: 8480-6 Heart Rate 1: 86 bpm Respiratory Rate: 20 bpm Temperature: 36.6 (C) / 97.8 (F) Weight: 296 lbs 04/06/2013 Blood Pressure 1: 142/90 Code: 8480-6 BMI: 40.3 Code: 71770-3 Heart Rate 1: 88 bpm Height: 6' Respiratory Rate: 20 bpm Temperature: 36 .6 (C) / 97.8 (F) Weight: 297 lbs 12/01/2012 Blood Pressure 1: 124/78 Code: 8480-6 BMI: 38.7 Code: 81325-6 Heart Rate 1: 76 bpm Height: 6' Respiratory Rate: 20 bpm Temperature: 37 .2 (C) / 98.9 (F) Weight: 285 lbs 08/04/2012 Blood Pressure 1: 128/80 Code: 8480-6 BMI: 38.2 Code: 80918-7 Heart Rate 1: 76 bpm Height: 6' Respiratory Rate: 20 bpm Temperature: 37 .0 (C) / 98.6 (F) Weight: 282 lbs 05/29/2012 Blood Pressure 1: 138/78 Code: 8480-6 BMI: 36.6 Code: 86876-3 Heart Rate 1: 66 bpm Height: 6' Temperature: 36.7 (C) / 98.1 (F) Weight: 270 lbs 05/25/2012 Blood Pressure 1: 128/72 Code: 8480-6 BMI: 39.9 Code: 99457-6 Heart Rate 1: 74 bpm Height: 6' Temperature: 36.1 (C) / 97.0 (F) Weight: 294 lbs 04/07/2012 Blood Pressure 1: 124/76 Code: 8480-6 BMI: 39.9 Code: 93956-3 Heart Rate 1: 72 bpm Height: 6' Respiratory Rate: 20 bpm Temperature: 36 .9 (C) / 98.5 (F) Weight: 294 lbs 12/16/2011 Blood Pressure 1: 128/80 Code: 8480-6 BMI: 40.8 Code: 35363-9 Heart Rate 1: 74 bpm Height: 6' Temperature: 36.6 (C) / 97.8 (F) Weight: 301 lbs 12/03/2011 Blood Pressure 1: 132/76 Code: 8480-6 BMI: 40.8 Code: 52598-9 Heart Rate 1: 68 bpm Height: 6' Respiratory Rate: 20 bpm Temperature: 36 .8 (C) / 98.2 (F) Weight: 301 lbs 08/29/2011 Blood Pressure 1: 140/68 Code: 8480-6 BMI: 40.8 Code: 90255-0 Heart Rate 1: 80 bpm Height: 6' Respiratory Rate: 20 bpm Temperature: 36 .4 (C) / 97.6 (F) Weight: 301 lbs 05/30/2011 Blood Pressure 1: 134/82 Code: 8480-6 BMI: 41.5 Code: 97182-0 Heart Rate 1: 76 bpm Height: 6' [...] 1: 126/72 Code: 8480-6 BMI: 41.2 Code: 06892-1 Heart Rate 1: 76 bpm Height: 6' [...] 1: 152/90 Code: 8480-6 BMI: 37.7 Code: 03269-2 Heart Rate 1: 92 bpm Height: 6'1" Temperature: 38.3 (C) / 101.0 (F) Weight : 286 lbs Functional Status No Functional Status data Reason For Visit Reason For Visit Effective Dates Notes follow up 08/30/2019 Discuss singulair th erapy follow up 08/10/2019 cellulitis 07/06/2019 follow up 05/10/2019 follow up 03/29/2019 [facility] injection(s) 03/04/2019 follow up 01/05/2019 Discuss [...] given hi m clotrimazole/betamethasone follow up 08/07/2017 fwup follow up 08/04/2017 follow up 06/04/2017 [...] dm Encounters Encounter Performer Location Codes Date ([id number]) OFFICE/OUTPATIENT VISIT EST Diagnosis: Chronic obstructive pulmonary disease, unspecified[ICD10: J44.9] Diagnosis: Essential (primary) hypertension[ICD10: I10] Diagnosis: Mixed hyperlipidemia[ICD10: E78.2] Diagnosis: Type 2 diabetes mellitus with hyperglycemia[ICD10: E11.65] Neela HYMAN [facility] CPT-4: 60287 08/30/2019 ([id number]) OFFICE/OUTPATIENT VISIT EST Diagnosis: Chronic obstructive pulmonary disease with (acute) exacerbation[ICD10: J44.1] Neela HYMAN [facility] CPT- 4: 01492 08/10/2019 ([id number]) OFFICE/OUTPATIENT VISIT EST Diagnosis: Sore on toe[ICD10: L98.9] Neela VASQUEZ [facility] CPT-4: 25038 07/06/2019 ([id number]) OFFICE/OUTPATIENT VISIT EST Diagnosis: Advanced chronic obstructive pulmonary disease[ICD10: J44.9] 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] [facility] 95615 05/10/2019 ([id number]) OFFICE/OUTPATIENT VISIT EST Diagnosis: Chronic obstructive pulmonary disease with (acute) exacerbation[ICD10: J44.1] Diagnosis: Hypokalemia[ICD10: E87.6] 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] Neela HYMAN [facility] CPT-4: 32039 03/29/2019 ([id number]) NURSE/OUTPATIENT VISIT EST Diagnosis: PNEUMOCOCCAL VACCINE[ICD10: Z23] Neela HYMAN [facility] CPT-4: 75286 03/04/2019 ([id number]) OFFICE/OUTPATIENT VISIT EST Diagnosis: Chronic obstructive pulmonary disease with (acute) exacerbation[ICD10: J44.1] Diagnosis: Other nonspecific abnormal finding of lung field[ICD10: R91.8] Neela HYMAN [facility] CPT-4: 60702 01/05/2019 ([id number]) OFFICE/OUTPATIENT VISIT EST Diagnosis: Solitary pulmonary nodule[ICD10: R91.1] 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] Diagnosis: Tinea corporis[ICD10: B35.4] Neela HYMAN [employer] [facility] CPT-4: 54873 12/09/2018 ([id number]) OFFICE/OUTPATIENT VISIT EST Diagnosis: COUGH[ICD10: R05] Diagnosis: Chronic obstructive pulmonary disease, unspecified[ICD10: J44.9] Diagnosis: Other disorders of lung[ICD10: J98.4] Diagnosis: Other nonspecific abnormal finding of lung field[ICD10: R91.8] Neela HYMAN [facility] CPT-4: 86862 11/24/2018 ([id number]) OFFICE/OUTPATIENT VISIT EST Diagnosis: Pneumonia, unspecified organism[ICD10: J18.9] Amita HYMAN [facility] CPT-4: 70389 09/16/2018 ([id number]) OFFICE/OUTPATIENT VISIT EST Diagnosis: Pneumonia, unspecified organism[ICD10: J18.9] Neela HYMAN [facility] CPT-4: 59811 09/03/2018 ([id number]) OFFICE/OUTPATIENT VISIT EST Diagnosis: Personal history of pneumonia (recurrent)[ICD10: Z87.01] Diagnosis: Cough[ICD10: R05] Diagnosis: Essential (primary) hypertension[ICD10: I10] Diagnosis: Type 2 diabetes mellitus with hyperglycemia[ICD10: E11.65] Amita HYMAN [facility] CPT-4: 47349 08/27/2018 OFFICE/OUTPATIENT VISIT EST Diagnosis: Pneumonia, unspecified organism[ICD10: J18.9] Diagnosis: Chronic obstructive pulmonary disease with (acute) exacerbation[ICD10: J44.1] Diagnosis: Other specified symptoms and signs involving the circulatory and respiratory systems[ICD10: R09.89] Diagnosis: Essential (primary) hypertension[ICD10: I10] Amita HYMAN [facility] CPT-4: 12260 08/13/2018 OFFICE/OUTPATIENT VISIT EST Diagnosis: Pneumonia, unspecified organism[ICD10: J18.9] Diagnosis: Other specified symptoms and signs involving the circulatory and respiratory systems[ICD10: R09.89] Amita Santiago ZHANG [facility] CPT-4: 49275 08/11/2018 ([id number]) OFFICE/OUTPATIENT VISIT EST Diagnosis: Dyspnea, unspecified[ICD10: R06.00] Diagnosis: Chronic obstructive pulmonary disease with (acute) exacerbation[ICD10: J44.1] Diagnosis: Pneumonia, unspecified organism[ICD10: J18.9] Amita HYMAN [facility] CPT-4: 71099 07/16/2018 ([id number]) OFFICE/OUTPATIENT VISIT EST Diagnosis: Acute bronchitis due to other specified organisms[ICD10: J20.8] Diagnosis: Cough[ICD10: R05] Amita HYMAN [facility] T-4: 58463 07/13/2018 ([id number]) OFFICE/OUTPATIENT VISIT EST Diagnosis: Essential (primary) hypertension[ICD10: I10] Diagnosis: Chronic obstructive pulmonary disease, unspecified[ICD10: J44.9] Diagnosis: Type 2 diabetes mellitus with hyperglycemia[ICD10: E11.65] Diagnosis: Mixed hyperlipidemia[ICD10: E78.2] Neela Yenni RONNA STERLING [employer] [employer] [facility] CPT-4: 63645 06/03/2018 ([id number]) OFFICE/OUTPATIENT VISIT EST Diagnosis: Chronic obstructive pulmonary disease, unspecified[ICD10: J44.9] Gely MIRZALINE [employer] [employer] [facility] CPT-4: 55496 05/04/2018 ([id number]) OFFICE/OUTPATIENT VISIT EST Diagnosis: Essential (primary) hypertension[ICD10: I10] Diagnosis: Localized edema[ICD10: R60.0] Neela Yenni MIRZALINE [employer] [facility] CPT-4: 27296 03/03/2018 ([id number]) OFFICE/OUTPATIENT VISIT EST Diagnosis: Localized edema[ICD10: R60.0] Neela Yenni NEELA [employer] [facility] CPT-4: 62272 02/17/2018 ([id number]) OFFICE/OUTPATIENT VISIT EST Diagnosis: FLU VACCINE[ICD10: Z23] Diagnosis: PNEUMOCOCCAL VACCINE[ICD10: Z23] Diagnosis: Type 2 diabetes mellitus without complications[ICD10: E11.9] Diagnosis: Mixed hyperlipidemia[ICD10: E78.2] Diagnosis: Essential (primary) hypertension[ICD10: I10] Diagnosis: Localized edema[ICD10: R60.0] Diagnosis: Chronic obstructive pulmonary disease, unspecified[ICD10: J44.9] Neela HYMAN [facility] CPT-4: 64254 02/10/2018 ([id number]) OFFICE/OUTPATIENT VISIT EST Diagnosis: Type 2 diabetes mellitus with hyperglycemia[ICD10: E11.65] Diagnosis: Mixed hyperlipidemia[ICD10: E78.2] Diagnosis: Essential (primary) hypertension[ICD10: I10] Diagnosis: Chronic obstructive pulmonary disease, unspecified[ICD10: J44.9] Diagnosis: Cutaneous abscess of back [any part, except buttock][ICD10: L02.212] Neela HYMAN [facility] CPT-4: 12200 11/05/2017 ([id number]) OFFICE/OUTPATIENT VISIT EST Diagnosis: Allergic urticaria[ICD10: L50.0] Gely HYMAN [facility] CPT-4: 66779 09/09/2017 ([id number]) OFFICE/OUTPATIENT VISIT EST Diagnosis: Generalized enlarged lymph nodes[ICD10: R59.1] Diagnosis: Acute gastritis without bleeding[ICD10: K29.00] Gely HYMAN [facility] [facility] CPT-4: 14352 08/07/2017 ([id number]) OFFICE/OUTPATIENT VISIT EST Diagnosis: Type 2 diabetes mellitus without complications[ICD10: E11.9] Diagnosis: Mixed hyperlipidemia[ICD10: E78.2] Diagnosis: Essential (primary) hypertension[ICD10: I10] Neela MURILLO [employer] [facility] CPT-4: 47879 08/04/2017 ([id number]) OFFICE/OUTPATIENT VISIT EST Diagnosis: Zoster without complications[ICD10: B02.9] Diagnosis: Acute sialoadenitis[ICD10: K11.21] Gely FRIEND ASHER [employer] [facility] CPT-4: 09067 06/04/2017 OFFICE/OUTPATIENT VISIT EST Diagnosis: Zoster without complications[ICD10: B02.9] Diagnosis: Acute sialoadenitis[ICD10: K11.21] Gely HYMAN DO [facility] CPT-4: 07279 06/02/2017 ([id number]) OFFICE/OUTPATIENT VISIT EST Diagnosis: Type 2 diabetes mellitus without complications[ICD10: E11.9] Diagnosis: Mixed hyperlipidemia[ICD10: E78.2] Diagnosis: Essential (primary) hypertension[ICD10: I10] Diagnosis: Chronic obstructive pulmonary disease, unspecified[ICD10: J44.9] Neela HYMAN [facility] CPT-4: 95353 05/05/2017 OFFICE/OUTPATIENT VISIT EST Diagnosis: Chronic obstructive pulmonary disease with acute lower respiratory infection[ICD10: J44.0] Diagnosis: Impacted cerumen, bilateral[ICD10: H61.23] Gely HYMAN DO [facility] CPT-4: 97749 04/10/2017 ([id number]) OFFICE/OUTPATIENT VISIT EST Diagnosis: FLU VACCINE[ICD10: Z23] Neela BUI [facility] CPT-4: 52529 03/28/2017 ([id number]) OFFICE/OUTPATIENT VISIT EST Diagnosis: Type 2 diabetes mellitus without complications[ICD10: E11.9] Diagnosis: Mixed hyperlipidemia[ICD10: E78.2] Diagnosis: Essential (primary) hypertension[ICD10: I10] Diagnosis: Chronic obstructive pulmonary disease, unspecified[ICD10: J44.9] Neela HYMAN [employer] [facility] CPT-4: 82654 02/03/2017 ([id number]) OFFICE/OUTPATIENT VISIT EST Diagnosis: Type 2 diabetes mellitus with hyperglycemia[ICD10: E11.65] Diagnosis: Mixed hyperlipidemia[ICD10: E78.2] Diagnosis: Essential (primary) hypertension[ICD10: I10] Diagnosis: Chronic obstructive pulmonary disease, unspecified[ICD10: J44.9] Neela HYMAN [facility] CPT-4: 72959 10/30/2016 ([id number]) NO CHARGE Diagnosis: Acute bronchitis, unspecified[ICD10: J20.9] Sammi Najera NEELA Octavio HYMAN [employer] [facility] CPT-4: 22519 08/30/2016 ([id number]) OFFICE/OUTPATIENT VISIT EST Diagnosis: Acute bronchitis, unspecified[ICD10: J20.9] Diagnosis: Other seasonal allergic rhinitis[ICD10: J30.2] Sammi HYMAN [employer] [facility] CPT-4: 23214 08/27/2016 ([id number]) OFFICE/OUTPATIENT VISIT EST Diagnosis: Type 2 diabetes mellitus without complications[ICD10: E11.9] Diagnosis: Mixed hyperlipidemia[ICD10: E78.2] Diagnosis: Essential (primary) hypertension[ICD10: I10] Neela HYMAN [facility] CPT-4: 52172 07/02/2016 ([id number]) OFFICE/OUTPATIENT VISIT EST Diagnosis: Acute bronchitis, unspecified[ICD10: J20.9] Sammi HYMAN DO [facility] CPT-4: 64905 06/14/2016 ([id number]) OFFICE/OUTPATIENT VISIT EST Diagnosis: Acute bronchitis, unspecified[ICD10: J20.9] Sammi HYMAN [facility] CPT-4: 72710 06/13/2016 ([id number]) OFFICE/OUTPATIENT VISIT EST Diagnosis: Essential (primary) hypertension[ICD10: I10] Neela HYMAN DO [facility] CPT-4: 07463 05/14/2016 ([id number]) OFFICE/OUTPATIENT VISIT EST Diagnosis: Essential (primary) hypertension[ICD10: I10] Neela HYMAN DO [facility] CPT-4: 74400 04/29/2016 ([id number]) OFFICE/OUTPATIENT VISIT EST Diagnosis: Unspecified abdominal pain[ICD10: R10.9] Diagnosis: Left lower quadrant pain[ICD10: R10.32] Diagnosis: Left upper quadrant pain[ICD10: R10.12] Diagnosis: Essential (primary) hypertension[ICD10: I10] Neela HYMAN [facility] CPT-4: 71974 04/22/2016 ([id number]) OFFICE/OUTPATIENT VISIT EST Diagnosis: Type 2 diabetes mellitus without complications[ICD10: E11.9] Diagnosis: Mixed hyperlipidemia[ICD10: E78.2] Diagnosis: Essential (primary) hypertension[ICD10: I10] Neela HYMAN DO [facility] CPT-4: 42786 04/01/2016 ([id number]) OFFICE/OUTPATIENT VISIT EST Diagnosis: Type 2 diabetes mellitus with hyperglycemia[ICD10: E11.65] Diagnosis: Mixed hyperlipidemia[ICD10: E78.2] Diagnosis: Essential (primary) hypertension[ICD10: I10] Neela HYMAN DO [facility] CPT-4: 66992 11/30/2015 ([id number]) OFFICE/OUTPATIENT VISIT EST Diagnosis: Type 2 diabetes mellitus with diabetic neuropathy, unspecified[ICD10: E11.40] Diagnosis: Essential (primary) hypertension[ICD10: I10] Diagnosis: Mixed hyperlipidemia[ICD10: E78.2] Neela FRIEND ASHER HYMAN DO [facility] CPT-4: [address]162 08/29/2015 ([id number]) OFFICE/OUTPATIENT VISIT EST Diagnosis: COUGH[ICD10: R05] Diagnosis: Wheezing[ICD10: R06.2] Diagnosis: Type 2 diabetes mellitus with diabetic neuropathy, unspecified[ICD10: E11.40] Neela HYMAN DO [facility] CPT-4: 81848 08/14/2015 ([id number]) OFFICE/OUTPATIENT VISIT EST Diagnosis: Other seasonal allergic rhinitis[ICD10: J30.2] Diagnosis: Dyspnea, unspecified[ICD10: R06.00] Diagnosis: Wheezing[ICD10: R06.2] Sammi MIRZALINE Octavio HYMAN DO [facility] CPT-4: 17860 08/09/2015 ([id number]) OFFICE/OUTPATIENT VISIT EST Diagnosis: Essential (primary) hypertension[ICD10: I10] Diagnosis: Type 2 diabetes mellitus with hyperglycemia[ICD10: E11.65] Diagnosis: Mixed hyperlipidemia[ICD10: E78.2] Neela FRIEND ASHER HYMAN DO [facility] CPT-4: 99732 05/22/2015 ([id number]) OFFICE/OUTPATIENT VISIT EST Diagnosis: 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] Diagnosis: - I - HYPERTENSION[ICD9: 401.9] Diagnosis: - I - HYPERLIPIDEMIA NEC/NOS[ICD9: 272.4] Diagnosis: Left hand paresthesia[ICD9: 782.0] Neela Sergeushahao HYMAN [facility] CPT-4: 72377 02/13/2015 ([id number]) OFFICE/OUTPATIENT VISIT EST Diagnosis: HYPERLIPIDEMIA NEC/NOS[ICD9: 272.4] Diagnosis: 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] Neela HYMAN [facility] CPT-4: 22857 11/07/2014 ([id number]) OFFICE/OUTPATIENT VISIT EST Diagnosis: ALLERGIC RHINITIS[ICD9: 477.9] Diagnosis: WHEEZING[ICD9: 786.07] Neela Duarte [facility] CPT-4: 89665 10/04/2014 ([id number]) OFFICE/OUTPATIENT VISIT EST Diagnosis: BRONCHITIS, ACUTE[ICD9: 466.0] Diagnosis: WHEEZING[ICD9: 786.07] Loren Duarte [facility] CPT-4: 05038 09/22/2014 ([id number]) OFFICE/OUTPATIENT VISIT EST Diagnosis: DYSPNEA[ICD9: 786.09] Diagnosis: WHEEZING[ICD9: 786.07] Diagnosis: Arrhythmia[ICD9: 427.9] Loren ZHANG [facility] CPT-4: 19852 09/21/2014 ([id number]) OFFICE/OUTPATIENT VISIT EST Diagnosis: 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, 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] Diagnosis: - I - HYPERLIPIDEMIA NEC/NOS[ICD9: 272.4] Diagnosis: - I - HYPERTENSION[ICD9: 401.9] Neela [facility]IRZALINE [facility]: 17772 06/28/2014 OFFICE/OUTPATIENT VISIT EST Diagnosis: SINUSITIS, ACUTE[ICD9: 461.9] Diagnosis: OTITIS MEDIA NOS[ICD9: 382.9] Sarah Sunshine NEELA [facility]: 66364 06/10/2014 ([id number]) OFFICE/OUTPATIENT VISIT EST Diagnosis: 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] Diagnosis: - I - HYPERLIPIDEMIA NEC/NOS[ICD9: 272.4] Diagnosis: - I - HYPERTENSION[ICD9: 401.9] Neela HYMAN [facility] CPT-4: 64675 03/29/2014 ([id number]) OFFICE/OUTPATIENT VISIT EST Diagnosis: 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] Diagnosis: - I - HYPERTENSION[ICD9: 401.9] Diagnosis: - I - HYPERLIPIDEMIA NEC/NOS[ICD9: 272.4] Diagnosis: Hand lesion[ICD9: 709.9] Neela DOS SANTOS KAITLIN [facility] CPT-4: 85808 11/30/2013 ([id number]) OFFICE/OUTPATIENT VISIT EST Diagnosis: 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] Diagnosis: HYPERLIPIDEMIA NEC/NOS[ICD9: 272.4] Diagnosis: HYPERTENSION[ICD9: 401.9] Neela VASQUEZ [facility] CPT-4: 78170 08/03/2013 ([id number]) OFFICE/OUTPATIENT VISIT EST Diagnosis: 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, 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] Diagnosis: HYPERTENSION[ICD9: 401.9] Diagnosis: HYPERLIPIDEMIA NEC/NOS[ICD9: 272.4] Neela HYMAN [facility] CPT-4: 99097 04/06/2013 ([id number]) OFFICE/OUTPATIENT VISIT EST Diagnosis: 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] Diagnosis: HYPERLIPIDEMIA NEC/NOS[ICD9: 272.4] Diagnosis: HYPERTENSION[ICD9: 401.9] Neela FRENCHR [facility] CPT-4: 38987 12/01/2012 ([id number]) OFFICE/OUTPATIENT VISIT EST Diagnosis: 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] Diagnosis: HYPERTENSION[ICD9: 401.9] Diagnosis: HYPERLIPIDEMIA NEC/NOS[ICD9: 272.4] Neela LAWLERNDHAO [facility] CPT-4: 26096 08/04/2012 ([id number]) OFFICE/OUTPATIENT VISIT EST Diagnosis: URINARY FREQUENCY[ICD9: 788.41] Neela HYMAN [facility] CPT-4: 70836 06/01/2012 OFFICE/OUTPATIENT VISIT EST Diagnosis: Agitation[ICD9: 307.9] Diagnosis: Frequent urination[ICD9: 788.41] Janet Jean Baptiste NEELA [facility]endez [facility] CPT-[facility]: 99395 05/29/2012 OFFICE/OUTPATIENT VISIT EST Diagnosis: SINUSITIS, ACUTE[ICD9: 461.9] Diagnosis: OTALGIA[ICD9: 388.70] Neela Sergeushahao MIRZANEELA [facility]avio [facility]: 16731 05/25/2012 OFFICE/OUTPATIENT VISIT EST Diagnosis: 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, 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] Diagnosis: HYPERTENSION[ICD9: 401.9] Diagnosis: HYPERLIPIDEMIA NEC/NOS[ICD9: 272.4] Neela Sergeushahao ANNJYOTIYesenia [facility] CPT-[facility]: 53058 04/07/2012 OFFICE/OUTPATIENT VISIT EST Diagnosis: FINGER INJURY[ICD9: 959.5] Janet Markel MURILLO Octavio [facility] CPT-4: 31357 12/16/2011 ([id number]) OFFICE/OUTPATIENT VISIT EST Diagnosis: 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, 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] Diagnosis: HYPERTENSION[ICD9: 401.9] Diagnosis: HYPERLIPIDEMIA NEC/NOS[ICD9: 272.4] Neela Sergeushahao ANNJUAN CARLOS DARLINE [facility] CPT-[facility]: 15130 12/03/2011 ([id number]) OFFICE/OUTPATIENT VISIT EST Diagnosis: 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] Diagnosis: HYPERLIPIDEMIA NEC/NOS[ICD9: 272.4] Diagnosis: HYPERTENSION[ICD9: 401.9] Neela Zhanghao NEELA JulissaMendez [facility] CPT-4: 52018 08/29/2011 OFFICE/OUTPATIENT VISIT EST Diagnosis: 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] Diagnosis: HYPERLIPIDEMIA NEC/NOS[ICD9: 272.4] Diagnosis: HYPERTENSION[ICD9: 401.9] Neela MURILLO JulissaMendez [facility] CPT-4: 13862 05/30/2011 OFFICE/OUTPATIENT VISIT EST Diagnosis: SKIN SENSATION DISTURB[ICD9: 782.0] Neela [facility] CPT-4: 40905 01/29/2011 OFFICE/OUTPATIENT VISIT EST Diagnosis: SKIN SENSATION DISTURB[ICD9: 782.0] Neela [facility] CPT-4: 64929 01/14/2011 OFFICE/OUTPATIENT VISIT EST Neela [facility] CPT- 4: 79414 01/01/2011 OFFICE/OUTPATIENT VISIT EST Neela Cunningham [facility] CPT- 4: 04706 11/29/2010 ([id number]) OFFICE/OUTPATIENT VISIT EST Neela [facility] CPT-4: 80051 08/28/2010 ([id number]) OFFICE/OUTPATIENT VISIT, EST Neela WILDE SMendez [facility] CPT-4: 92360 06/05/2010 ([id number]) OFFICE/OUTPATIENT VISIT, EST Neela [facility] CPT-4: 41192 02/05/2010 ([id number]) OFFICE/OUTPATIENT VISIT, EST Neela [facility] CPT-4: 89764 10/09/2009 ([id number]) OFFICE/OUTPATIENT VISIT, EST Neela [facility] CPT-4: 28913 08/22/2009 Plan of Care Planned Activity Notes [...] E11.65 08/30/2019 Appointment: Ne[facility]el[facility] [phone] [facility] [facility] 08/30/2019 Visit Diagnosis Plan: [...] 491.21 ICD-10 : J44.1 08/10/2019 Appointment: Neela Hymantel: [address] [place], [place] [phone] ACUTE ILLNESS 08/10/2019 Visit Diagnosis Plan: Sore on toe Discussion: Keep farhat an/dry Keflex Notify if worsens ICD-9 : 709.9 ICD-10 : L98.9 07/06/2019 Appointment: Neela Hyman WPtel: [address] [place] [address] ACUTE ILLNESS 07/06/2019 Patient Education: Abdoulaye OptimizeRClaudia Blue [id number] https://www.Accellos/TerraSky/resources/getResource/61/[email or web address]-42d7-8a94-71 Completed 07/06/2019 Visit Diagnosis Plan: Advanced chronic obstructive pul monary disease Discussion: Continue oxygen and pulmonary rehab Follow Up: 3 months ICD-9 : 496 ICD-10 : J44.9 05/10/2019 Visit Diagnosis Plan: Lymphoma involving lung Discussi on: Doing weekly lab and chemo ICD-9 : 202.82 ICD-10 : C85.99 05/10/2019 Appointment: Neela Hymantel: [address] [place], [place] [phone] FOLLOW UP 05/10/2019 Appointment: Neela Hymantel: [address] [place], [place] [phone] he called 04/14/19-- he was at physical [...] : E87.6 03/29/2019 Appointment: Neela Hyman WPtel: [address] [place], [place] [phone] Hospital Follow Up 03/29/2019 Appointment: Neela Hyman WPtel: [address] [place], [place] [phone] [place] INJECTION 03/04/2019 Visit Diagnosis Plan: Chronic obstructiv e pulmonary disease with (acute) exacerbation Discussion: Increase SVNS with duoneb to QID Prednisone taper ICD-9 : 491.21 ICD-10 : J44.1 01/05/2019 Visit Diagnosis Plan: Other nonspecific abnormal findi ng of lung field Discussion: Referral to pulmonology--will likely need bronchoscopy--path results discussed ICD-9 : 786.6 ICD-10 : R91.8 01/05/2019 Appointment: Neela Hyman WPtel: [address] [place] [address] [place] FOLLOW UP 01/05/2019 Patient Education: prednisone- OptimizeRX Coupon [id number] https://www.TerraSky.Lifesquare/samplemd/resources/getResource/61/h6fe1228-281g-2y12-pc Completed 01/05/2019 Care Plan: Referral Order SNOMED-CT : 30 [id number] Pending 01/05/2019 Appointment: Neela Hyman WPtel: [address] [place] [id number] [place] CANCELED 12/21/2018 Visit Diagnosis Plan: Tinea corporis Discussion: Diflu can--hold simvastatin and fenofibrate while taking ICD-9 : 110.5 ICD-10 : B35.4 12/09/2018 Visit Diagnosis Plan: Solitary pulmonary nodule Discus esmer: CT guided needle biopsy of RUL lung mass ICD-9 : 793.11 ICD-10 : R91.1 12/09/2018 Appointment: Neela Hyman WPtel: [address] [place] [address] [place] FOLLOW UP 12/09/2018 Appointment: Gely Harp [address] [address] [place] NO SHOW 12/01/2018 Visit Diagnosis Plan: [...] : J44.9 11/24/2018 Appointment: Neela Hyman WPtel: [address] [place] [address] US FOLLOW UP 11/24/2018 Care Plan: PET IMAGE FULL BODY LOINC : 4 2711-2 Pending 11/24/2018 Appointment: Neela Hyman WPtel: [address] [place] [address] [place] Consult 09/21/2018 Visit Diagnosis Plan: Pneumonia, unspecified organism Discussion: Patient clinically improved. Recent CT scan from 09/07 showed unresolved right upper lobe pneumonia. Finished another 7 days of levaquin. Will repeat CBC early next week. Order sent with patient to get done at [facility]. FU CT recommended in 4 weeks. Patient states understanding. ICD-9 : 486 ICD-10 : J18.9 09/16/2018 Appointment: Amita Henderson [address] [id number] [place] FOLLOW UP 09/16/2018 Visit Diagnosis Plan: Pneumonia, unspecified organism Discussion: Clinically patient feels and looks much better but need CT scan of chest due to ongoing round pneumonia in association with his known lymphoma ICD-9 : 486 ICD-10 : J18.9 09/03/2018 Appointment: Neela Hyman WPtel: [id number] FOLLOW UP 09/03/2018 Care Plan: CT THORAX [...] : Z87.01 08/27/2018 Appointment: [facility] [facility] [facility] 08/27/2018 Visit Diagnosis Plan: Other [...] ICD-10 : I10 08/13/2018 Appointment: Amita Henderson [id number] LM FOLLOW UP 08/13/2018 Appointment: Amita Henderson [facility] [id number] CANCELED 08/13/2018 Patient Education: prednisone- OptimizeRX Coupon [phone] https://www.Accellos/sampleInvo Bioscience/resources/getResource/61/nh93eu5u-3j14-0vu6-4m Completed 08/13/2018 Visit Diagnosis Plan: Other specified [...] ICD-10 : J18.9 08/11/2018 Appointment: Amita Henderson [facility] [id number] ACUTE ILLNESS 08/11/2018 Care Plan: CHEST X-RAY 2VW FRONTAL&LATL LOINC : 05262-5 Pending 07/20/2018 Visit Diagnosis Plan: Dyspnea, unspecified Discussion: CXR- to be completed at the hospital. Will call with results and any adjustments in plan. Solumedrol 125 administered in clinic Prednisone 20 mg BID x 5 days- start tomorrow ICD-9 : 786.09 ICD-10 : R06.00 07/16/2018 Appointment: Amita Henderson [address] [place], [place] [id number] ACUTE ILLNESS 07/16/2018 Patient Education: prednisone- OptimizeRX Coupon [phone] https://www.Accellos/TerraSky/resources/getResource/61/16y4q4bf-pt02-1uc8-y1 Completed 07/16/2018 Visit Diagnosis Plan: Acute bronchitis due to other sp ecified organisms Discussion: Kenalog 40 mg IM administered in clinic. Doxycycline called into [facility]. Take as directed. Continue nebulizer and Trelegy. Follow up if symptoms are not improving with treatment regimen. Patient states understanding of all instruction. ICD-9 : 466.0 ICD-10 : J20.8 07/13/2018 Appointment: Amita Henderson [address] [place], [place] [address] ACUTE ILLNESS 07/13/2018 Patient Education: doxycycline hyclate- OptimizeRX Cou saritha [id number] https://www.Accellos/TerraSky/resources/getResource/61/4i262a76-5o8d-0016-6h Completed 07/13/2018 Care Plan: [place] : [address]-5 Pending 07/13/2018 Care Plan: CBC Pending 07/13/2018 Care Plan: A1C HPLC LOINC : 39914-5 Pending 07/13/2018 Visit Diagnosis Plan: Mixed hyperlipidemia [...] I10 06/03/2018 Appointment: Neela [facility]yman WPtel: [phone] [facility] [facility] 06/03/2018 Visit Diagnosis Plan: [...] ICD-10 : J44.9 05/04/2018 Appointment: Gely Harp [address] [place] [address] ACUTE ILLNESS 05/04/2018 Visit Diagnosis Plan: Localized edema Discussion: Cont inue lasix and potassium at every other day Recheck lab and fwup in 3mos Follow Up: 3 months ICD-9 : 782.3 ICD-10 : R60.0 03/03/2018 Appointment: Neela Hyman WPtel: [address] [place] [address] FOLLOW UP 03/03/2018 Patient Education: Patient Medication Summary Completed 03/03/2018 Visit Diagnosis Plan: Localized edema Discussion: Finch ge lasix and potassium to every other day Check Chem 7 in 2 weeks and fwup ICD-9 : 782.3 ICD-10 : R60.0 02/17/2018 Appointment: Neela Hyman WPtel: [address] [place] [address] FOLLOW UP 02/17/2018 Patient Education: Patient Medication [...] : R60.0 02/10/2018 Appointment: Neela Hyman WPtel: [address] [place], [place] [phone] FOLLOW UP 02/10/2018 Patient Education: Patient Medication [...] : L02.212 11/05/2017 Appointment: Neela Hyman WPtel: [address] [place], [place] [phone] FOLLOW UP 11/05/2017 Patient Education: Patient Medication Summary Completed 11/05/2017 Patient Education: Patient Medication Summary Completed 11/03/2017 Care Plan: [place] : [address]-9 Pending 11/03/2017 Care Plan: LIPID PANEL LOINC : 76016-2 Pending 11/03/2017 Care Plan: CBC Pending 11/03/2017 Care Plan: A1C HPLC LOINC : 76893-0 Pending 11/03/2017 Visit Diagnosis Plan: Allergic urticaria [...] ICD-10 : L50.0 09/09/2017 Appointment: Gely Harp [address] [place] [place] [id number] 09/09/2017 Patient Education: Patient Medication [...] ICD-10 : R59.1 08/07/2017 Appointment: Gely Harp [address] [place], [place] [phone] Hospital Follow Up 08/07/2017 Patient Education: Patient Medication Summary Completed 08/07/2017 Visit Diagnosis Plan: Type 2 diabetes mellitus without complications Discussion: Accuchecks daily Lab discussed Continue current meds ICD-9 : 250.00 ICD-10 : E11.9 08/04/2017 Visit Diagnosis Plan: Essential (primary) hypertension Discussion: Increase Cardizem CD to 360mg daily ICD-9 : 401.9 ICD-10 : I10 08/04/2017 Appointment: Neela Hyman WPtel: [phone] [facility] FOLLOW UP 08/04/2017 Patient Education: Patient Medication Summary Completed 08/04/2017 Patient Education: Patient Medication Summary Completed 07/31/2017 Care Plan: [place] : [address]-8 Pending 07/31/2017 Care Plan: ASSAY THYROID STIM HORMONE Pen ding 07/31/2017 Care Plan: LIPID PANEL LOINC : 41149-7 Pending 07/31/2017 Care Plan: CBC Pending 07/31/2017 Care Plan: A1C HPLC LOINC : 78960-8 Pending 07/31/2017 Patient Education: Patient Medication Summary Completed 06/19/2017 Patient Education: Patient Medication Summary Completed 06/09/2017 Care Plan: CT SOFT TISSUE [place] : [address]-3 Pending 06/09/2017 Visit Diagnosis Plan: Acute sialoadenitis [...] ICD-10 : B02.9 06/04/2017 Appointment: Gely Harp [address] [place] [address] ACUTE ILLNESS 06/04/2017 Patient Education: Patient Medication [...] ICD-10 : B02.9 06/02/2017 Appointment: Gely Harp [address] [place] [address] ACUTE ILLNESS 06/02/2017 Patient Education: Patient Medication [...] : E11.9 05/05/2017 Appointment: Neela Hyman WPtel: [facility] [phone] FOLLOW UP 05/05/2017 Patient Education: Patient Medication Summary Completed 05/05/2017 Patient Education: Patient Medication Summary Completed 05/01/2017 Care Plan: A1C HPLC [facility] : 71611-1 Pending 05/01/2017 Visit Diagnosis Plan: Chronic obstructiv [...] ICD-10 : H61.23 04/10/2017 Appointment: Gely Harp [address] [place] [address] ACUTE ILLNESS 04/10/2017 Patient Education: Patient Medication Summary Completed 04/10/2017 Appointment: Neela Hyman WPtel: [phone] [facility] US INJECTION 03/28/2017 Patient Education: Patient [...] : J44.9 02/03/2017 Appointment: Neela Hyman WPtel: [facility] [facility] FOLLOW UP 02/03/2017 Patient Education: Patient Medication Summary Completed 02/03/2017 Patient Education: Patient Medication Summary Completed 01/30/2017 Care Plan: [place] : [address]-3 Pending 01/30/2017 Care Plan: LIPID PANEL LOINC : 89787-1 Pending 01/30/2017 Care Plan: CBC Pending 01/30/2017 Care Plan: A1C HPLC LOINC : 68191-4 Pending 01/30/2017 Care Plan: ASSAY OF PSA [...] : E11.65 10/30/2016 Appointment: Neela Hyman WPtel: [facility] 10/29 lm ~sl 10/30 confirmed~sl FOLLOW UP 11/2016 Patient Education: Patient Medication Summary Completed 10/30/2016 Patient Education: Patient Medication Summary Completed 10/24/2016 Visit Diagnosis Plan: Acute bronchitis, unspecified Di scussion: Patient sounds and looks much improved Continue current regimen Keep appt with Dr Levi for Friday Follow up PRN ICD-9 : 466.0 ICD-10 : J20.9 08/30/2016 Appointment: Sammi Najera [address] [facility] / rang and rang rang 08/30 rang [...] J20.9 08/27/2016 App[facility]ment[facility]5 [facility] [facility] 08/27/2016 Patient Education: Patient Medication Summary Completed 08/27/2016 Care Plan: Referral Order SNOMED-CT : 30 [id number] Pending 08/27/2016 Visit Diagnosis Plan: Type 2 [...] : I10 07/02/2016 Appointment: Neela Hyman WPtel: [address] [place] [address] 07/01 rang and rang`sl FOLLOW UP 7 Patient Education: Patient Medication Summary Completed 07/02/2016 Patient Education: Patient Medication Summary Completed 06/27/2016 Care Plan: LIPID PANEL LOINC : 13876-8 Pending 06/27/2016 Care Plan: [place] : [address]-9 Pending 06/27/2016 Care Plan: A1C HPLC LOINC : 73537-8 Pending 06/27/2016 Visit Diagnosis Plan: Acute bronchitis, [...] : 466.0 ICD-10 : J20.9 06/14/2016 Appointment: ReinaldoRadhaSammi [address] [place], [place] [phone] FOLLOW UP 06/14/2016 Patient Education: Patient Medication [...] : J20.9 06/13/2016 Appointment: Sammi Najera [address] [place], [place] [phone] ACUTE ILLNESS 06/13/2016 Patient Education: Patient Medication Summary Completed 06/13/2016 Care Plan: CHEST X-RAY 2VW FRONTAL&LATL LOINC : 04320-0 Pending 06/13/2016 Visit Plan: Increase metoprolol to 100mg po BID BP readings and BP check in 1month 05/14/2016 Appointment: Neela Hyman WPtel: [address] [place], [place] [phone] 05/13 rang and rang`sl FOLLOW UP 6 Patient Education: Patient Medication Summary Completed 05/14/2016 Visit Plan: Increase metoprolol to 50mg BID BP check in 1 week f/u BP appt 2 weeks consider musculoskeletal if pain returns 04/29/2016 Appointment: Neela Hyman WPtel: [address] [place], [place] [phone] 04/25 confimred~sl FOLLOW UP 04/29/2016 Patient Education: Patient Medication Summary Completed 04/29/2016 Visit Plan: Stat CT scan of abdomen/pelv is to look for stone Hydrate and use tramadol prn Increase metoprolol to 25mg po BID Will see urology pending CT scan results 04/22/2016 Appointment: Neela Hyman WPtel: [address] [place], [place] [phone] 04/17 confirmed-sp ACUTE ILLNESS 04/22/2016 Patient Education: [...] flu shot 04/01/2016 Appointment: Neela Hyman WPtel: [address] [place], [place] [phone] [place] FOLLOW UP 04/01/2016 Patient Education: Patient Medication Summary Completed 04/01/2016 Patient Education: [facility] - Saving AutoInj - 18-64 - Dynamic Heber l ID Completed 04/01/2016 Patient Education: Patient Medication Summary Completed 03/28/2016 Care Plan: A1C HPLC LOINC : 71328-9 Pending 03/28/2016 Care Plan: [place] : [address]-3 Pending 03/28/2016 Visit Plan: Lab discussed Continue curre nt meds Accuchecks daily 11/30/2015 Appointment: Neela Hyman WPtel: [address] [place], [place] [phone] [place] 11/28 confirmed~sl FOLLOW UP 11/30/2015 Patient Education: Patient Medication Summary Completed 11/30/2015 Appointment: Neela Hyman WPtel: [address] [place], [place] [phone] US RESCHEDULED 11/28/2015 Patient Education: Patient Medication Summary Completed 11/23/2015 Care Plan: [place] : [address]-9 Pending 11/23/2015 Care Plan: LIPID PANEL LOINC : 69224-4 Pending 11/23/2015 Care Plan: CBC Pending 11/23/2015 Care Plan: A1C HPLC LOINC : 90554-5 Pending 11/23/2015 Visit Plan: Lab discussed Surinder munguia Continue current meds Cymbalta helping with feet and mood 08/29/2015 Appointment: Neela Hyman WPtel: [phone] [facility] [facility] 08/29/2015 Patient Education: Patient Medication Summary Completed 08/29/2015 Visit Plan: Check CXR Stop all steroids and steroid inhalers Use SVN with but change to duoneb Add singulair for allergy etiology Change fluoxetine to cymbalta 60mg daily Viagra samples given to try prn--warned of no nitrates 08/14/2015 Appointment: Neela Hyman WPtel: [phone] [facility] lm to reschedule ~sl 07/27 lm ~sl 08/09 busy 08/10 conf irmed-sp Annual Well Visit 08/14/2015 Patient Education: Patient Medication Summary Completed 08/14/2015 Care Plan: CHEST X-RAY 2VW FRONTAL&LATL LOINC : 39724-1 Ordered 08/14/2015 Visit Plan: Decadron 8mg given [...] improving as expected 08/09/2015 Appointment: [facility]ammi [facility]era [phone] [facility] [facility] Follow UP 08/09/2015 Patient Education: Patient Medication Summary Completed 08/09/2015 Patient Education: [facility] - Saving AutoInj - 18-64 - Dynamic [...] with it 05/22/2015 Appointment: Neela Hyman WPtel: [address] [place], [place] [phone] 05/17 confirmed~sl FOLLOW UP 05/22/2015 Patient Education: Patient Medication Summary Completed 05/22/2015 Patient Education: Patient Medication Summary Completed 05/15/2015 Visit Plan: Obtain EMGs done at [facility] from when fractured left arm Lab discussed Accuchecks daily 02/13/2015 Appointment: Neela Hyman WPtel: [address] [place], [place] [phone] 02/10 confrimed FOLLOW UP 02/13/2015 Patient Education: Patient Medication Summary Completed 02/13/2015 Patient Education: Patient Medication Summary Completed 02/09/2015 Visit Plan: discussed lab add fenofibrat e 134mg po daily recheck fasting lab in 3 months, CBC, CMP, Lipids, hgb AIC 11/07/2014 Appointment: Neela Hyman WPtel: [address] [place], [place] [phone] 11/04 appt confirmed cn FOLLOW UP 015 Patient Education: Patient Medication Summary Completed 11/07/2014 Patient Education: Patient Medication Summary Completed 11/03/2014 Visit Plan: Continue loratadine 10mg richard ly Notify if symptoms return 10/04/2014 Appointment: Neela Hyman WPtel: [address] [place], [place] [phone] confirmed on 10/03 at 2:42pm FOLLOW UP 09/23 Patient Education: Patient Medication Summary Completed 10/04/2014 Appointment: Neela Hyman WPtel: [address] [place], [place] [phone] ACUTE ILLNESS 09/28/2014 Appointment: Loren Garza WPtel: [address] [place], [place] [phone] FOLLOW UP 09/22/2014 Patient Education: Patient Medication Summary Completed 09/22/2014 Appointment: Loren Garza WPtel: [address] [place], [place] [phone] ACUTE ILLNESS 09/21/2014 Patient Education: Patient Medication Summary Completed 09/21/2014 Patient Education: [facility] - Saving AutoInj - 18+ - Dynamic Portal ID Completed 09/21/2014 Visit Plan: Lab discussed Continue daily accuchecks Continue current meds 06/28/2014 Appointment: Neela Hyman WPtel: [address] [place] [address] FOLLOW UP 06/28/2014 Patient Education: Patient Medication Summary Completed 06/28/2014 Patient Education: Patient Medication Summary Completed 06/23/2014 Appointment: Sarah Sunshine WPtel: [address] [place] [address] ACUTE ILLNESS 06/10/2014 Patient Education: Patient Medication Summary Completed 06/10/2014 Patient Education: [facility] - Saving AutoInj - 18+ - Dynamic Portal ID Completed 06/10/2014 Visit Plan: Lab discussed Continue daily accuchecks Continue current meds 03/29/2014 Appointment: Neela Hyman WPtel: [address] [place], [place] [phone] FOLLOW UP 03/29/2014 Patient Education: Patient Medication Summary Completed 03/29/2014 Patient Education: Patient Medication Summary Completed 03/23/2014 Visit Plan: Lab discussed Continue curre nt meds and accuchecks See surgery for removal of hand lesion 11/30/2013 Appointment: Neela Hyman WPtel: [address] [place], [place] [phone] 11/29 no answer FOLLOW UP 11/30/2013 Patient Education: Patient Medication Summary Completed 11/30/2013 Visit Plan: Lab discussed Continue curre nt meds 08/03/2013 Appointment: Neela Hyman WPtel: [address] [place], [place] [phone] FOLLOW UP 08/03/2013 Patient Education: Patient Medication Summary Completed 08/03/2013 Visit Plan: Lab Discussed Will continue current meds and pt will get back on diet/exercise Check lab in 4mos and fwup 04/06/2013 Appointment: Neela Hyman WPtel: [address] [place], [place] [address] FOLLOW UP 04/06/2013 Patient Education: Patient Medication Summary Completed 04/06/2013 Visit Plan: Lab discussed Continue daily accuchecks 12/01/2012 Appointment: Neela Hyman WPtel: [address] [place], [place] [address] 11/30 no answer FOLLOW UP 12/01/2012 Patient Education: Patient Medication Summary Completed 12/01/2012 Visit Plan: Continue current meds and da russell accuchecks Lab discussed 08/04/2012 Appointment: Neela Hyman WPtel: [address] [place], [place] [phone] FOLLOW UP 08/04/2012 Patient Education: Patient Medication Summary Completed 08/04/2012 Appointment: Neela Hyman WPtel: [address] [place], [place] [phone] [place] UA 06/01/2012 Patient Education: Patient Medication Summary Completed 06/01/2012 Appointment: Janet Jean Baptiste WPtel: [address] [place], [place] [phone] FOLLOW UP 05/29/2012 Patient Education: Patient Medication Summary Completed 05/29/2012 Visit Plan: pt states Dr. Hyman told h is to increase his Prozac dose while she was talking to her at [facility]. Discussed that pt. should not increase or decrease dosage without 's knowledge. Pt. will seek hearing test here in town at the hearing aid place on [address]. Discussed that ear pain is likely caused by sinus pressure. Pt. will notify if no improvement. 05/25/2012 Appointment: Janet Jean Baptiste WPtel: [address] [place], [place] [phone] ACUTE ILLNESS 05/25/2012 Patient Education: Patient Medication Summary Completed 05/25/2012 Visit Plan: Continue current meds Contin ue daily accuchecks but alternate times Increase fish oil to 3gm daily 04/07/2012 Appointment: Neela Hyman WPtel: [address] [place], [place] [phone] 04/06 FOLLOW UP 04/07/2012 Patient Education: Patient Medication Summary Completed 04/07/2012 Appointment: Janet Jean Baptiste WPtel: [address] [place] [address] ACUTE ILLNESS 12/16/2011 Patient Education: Patient Medication Summary Completed 12/16/2011 Visit Plan: Increase 12/03/2011 Appointment: Neela Hyman WPtel: [address] [place] [address] FOLLOW UP 12/03/2011 Patient Education: Patient Medication Summary Completed 12/03/2011 Visit Plan: Continue current meds Contin ue accuchecks 08/29/2011 Appointment: Neela Hyman WPtel: [address] [place], [place] [phone] FOLLOW UP 08/29/2011 Patient Education: Patient Medication Summary Completed 08/29/2011 Visit Plan: Continue current meds except restart zocor 05/30/2011 Appointment: Neela Hyman WPtel: [address] [place], [place] [phone] FOLLOW UP 05/30/2011 Patient Education: Patient Medication Summary Completed 05/30/2011 Visit Plan: Continue tennis elbow strap May go back to weight-lifing--light weigts every other day 01/29/2011 Appointment: Neela Hyman WPtel: [address] [place], [place] [phone] FOLLOW UP 01/29/2011 Patient Education: Patient Medication Summary Completed 01/29/2011 Visit Plan: Continue tennis elbow strap and anti-inflammatories 01/14/2011 Appointment: Neela Hyman WPtel: [address] [place] [address] FOLLOW UP 01/14/2011 Appointment: Janet Jean Baptiste WPtel: [address] [place] [address] NEW PATIENT 01/14/2011 Patient Education: Patient Medication Summary Completed 01/14/2011 Appointment: Neela Hyman WPtel: [address] [place] [address] FOLLOW UP 01/08/2011 Appointment: Neela Hyman WPtel: [address] [place] [address] FOLLOW UP 01/01/2011 Appointment: Neela Hyman WPtel: [address] [place] [address] UA 01/01/2011 Patient Education: Patient Medication Summary [...] given. 11/29/2010 Appointment: Janet Jean Baptiste WPtel: [address] [place], [place] [phone] ACUTE ILLNESS 11/29/2010 Patient Education: Patient Medication Summary Completed 11/29/2010 Visit Plan: Cont current meds Check CMP, Lipids, HbA1C 08/28/2010 Appointment: Neela Hyman WPtel: [address] [place], [place] [phone] FOLLOW UP 08/28/2010 Patient Education: Patient Medication Summary Completed 08/28/2010 Visit Plan: Cont current meds and accuch ecks Add Zocor 40mg q HS Check Lipids and HbA1C in 3mos 06/05/2010 Appointment: Neela Hyman WPtel: [address] [place], [place] [phone] FOLLOW UP 06/05/2010 Patient Education: Patient Medication Summary Completed 06/05/2010 Visit Plan: Check Lipids and HbA1C 02/05/2010 Appointment: Neela Hyman WPtel: [address] [place], [place] [phone] FOLLOW UP 02/05/2010 Patient Education: Patient Medication Summary Completed 02/05/2010 Visit Plan: HbA1C in 3mos. Continue Accu checks BID alternating times. Check HbA1C, CMP, Lipids 10/09/2009 Appointment: Nelea Hyman WPtel: [address] [place] [address] FOLLOW UP 10/09/2009 Patient Education: Patient Medication Summary Completed 10/09/2009 Visit Plan: Saline nasal flushes prn. Ty lenol/Motrin prn headache. Notify if persists/symptoms worsening. 08/22/2009 Appointment: Neela Hyman WPtel: [address] [place], [place] [phone] ACUTE ILLNESS 08/22/2009 Patient Education: Patient Medication Summary Completed 08/22/2009 Referral: Aubrey Rand WPtel: [address] [place], [place] [phone] [place] Office will verfy his insurance then they will contact patient Completed Referral: Shahbaz Brennan WPtel: [address] [facility] [address] [id number] [place] Referral Completed Referral: Ion Levi [address] [facility] [id number] [place] Referral Appointment Requested Referral: Ion Levi [address] [facility] [id number] [place] Referral Appointment Requested Instructions Comment . [...] with it . Obtain EMGs done at [facility] from when fractured left arm Lab discussed [...] while she was talking to her at [facility]. Discussed that pt. should not increase or decrease dosage without Dr's knowledge. Pt. will seek hearing test here in town at the hearing aid place on [address]. Discussed that ear pain is likely caused [...]
--- OUTSIDE RECORDS SUMMARY | 2019-12-09 09:02 | XMS REPORT | CCD ---
Author Author Michael Hyman D.O. Organization [facility] Address [address] [place] [address] Phone Care Team Providers Care Research Environmental Engineer Name Role Phone Neela Hyman D.O., PP Unavailable CCM Unavailable Summary Purpose Interface Exchange Insurance Providers Payer name Policy type / Coverage type Covered republican ID Effective Begin Date Effective End Date ABS FOR [employer] Commercial Insurance [id number] Unknown Family History Family History data not found Social History Social History Element Codes Description Effective Dates Marital status Unknown 05/30/[address]: 7446030 Former smoker quit 25 years ago 01/01/2011 [...] Fill Instructions Lasix 40 mg tablet RxNorm: 545705 1 Tablet(s) Oral QD 08/24/201910/25 Active duloxetine 60 mg capsule,delayed release RxNorm: 639077 TAKE ONE CAPSULE BY MOUTH EVERY DAY 08/16/2019 02/11/2020 Active metoprolol succinate ER 100 mg tablet,extended release 24 hr RxNorm: 431245 TAKE ONE TABLET BY MOUTH TWICE A DAY 08/16/2019 05/11/2020 Active potassium chloride ER 20 mEq tablet,extended release RxNorm: 064546 1 Tablet(s) Oral two times a day 07/22/2019 10/19/2019 Active metformin 500 mg tablet RxNorm: 972597 2 Tablet(s) Oral two afshan es a day 07/13/2019 09/11/2019 Active Singulair 10 mg tablet RxNorm: 482727 TAKE ONE TABLET BY MOUTH EVERY EVENING 07/06/2019 01/02/2020 Active Reselected prescribe r from [facility] to [facility] Keflex 500 mg capsule RxNorm: 180646 1 Capsule(s) Oral three ti mes a day 07/06/2019 07/13/2019 Inactive Singulair 10 mg tablet RxNorm: 704683 TAKE ONE TABLET BY MOUTH EVERY EVENING 06/22/2019 07/05/2019 Inactive Reselected prescribe r from PEG MAHER to [facility] Zocor 40 mg tablet RxNorm: 175859 TAKE ONE TABLET BY M OUTH EVERY NIGHT AT BEDTIME 06/21/2019 11/17/2019 Active MagOx 400 mg (241.3 mg magnesium) tablet RxNorm: 545575 1 Table t(s) Oral QD 06/21/2019 08/20/2019 Inactive diltiazem ER 360 mg capsule,24 hr,extended release RxNorm: 8 98874 TAKE ONE CAPSULE BY MOUTH AT BEDTIME -REPLACES 300MG 05/17/2019 11/12/2019 Active MagOx 400 mg (241.3 mg magnesium) tablet RxNorm: 580352 1 Table t(s) Oral QD 04/26/2019 06/20/2019 Inactive Lasix 40 mg tablet RxNorm: 653862 40 MG PO DAILY 04/12/2019 08/23/2019 Inactive Benicar 40 mg tablet RxNorm: 853982 1 Tablet(s) Oral QD 03/29/2019 Active potassium chloride ER 20 mEq tablet,extended release RxNorm: 810221 1 Tablet(s) Oral two times a day 03/29/2019 06/27/2019 Inactive potassium chloride ER 20 mEq tablet,extended release RxNorm: 810567 1 Tablet(s) Oral QD 03/29/2019 03/28/2019 Inactive Benicar 40 mg tablet RxNorm: 007476 1 Tablet(s) Oral QD 03/29/2019 Inactive MagOx 400 mg (241.3 mg magnesium) tablet RxNorm: 267464 1 Table t(s) Oral QD 03/29/2019 04/25/2019 Inactive metformin 500 mg tablet RxNorm: 247412 2 Tablet(s) Oral two afshan es a day 03/29/2019 07/12/2019 Inactive fenofibrate micronized 134 mg capsule RxNorm: 636112 TA KE ONE CAPSULE BY MOUTH EVERY DAY 03/05/2019 08/31/2019 Active duloxetine 60 mg capsule,delayed release RxNorm: 738415 1 Capsu le(s) PO QD 01/28/2019 07/26/2019 Inactive Trelegy Ellipta 100 mcg-62.5 mcg-25 mcg powder for inhalatio n RxNorm: 7130136 1 Puff(s) INH QD 01/06/2019 12/31/2019 Active 90 day supply prednisone 20 mg tablet RxNorm: 200688 1 Tablet(s) PO T ID for 3 days then 1 po BID for 3 days then 1 po daily for 3 days 01/05/2019 03/28/2019 Inacti ve metformin ER 1,000 mg tablet,extended release 24hr RxNorm: 1 420632 TAKE TWO TABLETS (1000MG) BY MOUTH TWO TIMES A DAY 12/22/2018 07/13/2019 Inacti ve Diflucan 100 mg tablet RxNorm: 231058 1 Tablet(s) PO QD 12/09/2018 Inactive prednisone 20 mg tablet RxNorm: 693036 1 Tablet(s) PO B ID for 4 days then 1 po daily for 4 days 11/24/2018 01/04/2019 Inactive albuterol sulfate 2.5 mg/3 mL (0.083 %) solution for n ebulization RxNorm: 725196 3 Milliliter(s) INH ONE VIAL VIA NEBULIZER EVERY 4 HOURS 019 07/21/2019 Inactive [AttnRPh: Saving apply/adjudicate RxGRP: SG20 RxBIN:[id number] RxPCN: ID#:[id number]] Trelegy Ellipta 100 mcg-62.5 mcg-25 mcg powder for inhalatio n RxNorm: 4164694 1 Puff(s) INH QD 10/27/2018 01/06/2019 Inactive 90 day supply diltiazem ER 360 mg capsule,24 hr,extended release RxNorm: 8 94865 TAKE ONE CAPSULE BY MOUTH AT BEDTIME -REPLACES 300MG 10/13/2018 04/10/2019 Inactive metoprolol succinate ER 100 mg tablet,extended release 24 hr RxNorm: 822587 TAKE ONE TABLET BY MOUTH TWICE A DAY 10/13/2018 07/09/2019 Inactive Trelegy Ellipta 100 mcg-62.5 mcg-25 mcg powder for inhalatio n RxNorm: 2359086 INHALE ONE PUFF ONCE DAILY 09/07/2018 10/27/2018 Inactive Levaquin 750 mg tablet RxNorm: 930730 1 Tablet(s) PO QD 09/07/2018 Inactive Levaquin 750 mg tablet RxNorm: 325518 1 Tablet(s) PO QD 09/07/2018 Inactive prednisone 20 mg tablet RxNorm: 974145 2 Tablet(s) PO QAM 08/13/2018 08/19/2018 Inactive Levaquin 500 mg tablet RxNorm: 454141 1 Tablet(s) PO QD 08/11/2018 Inactive fenofibrate micronized 134 mg capsule RxNorm: 358147 TA KE ONE CAPSULE BY MOUTH EVERY DAY 08/10/2018 02/05/2019 Inactive prednisone 20 mg tablet RxNorm: 017887 1 Tablet(s) PO BID 07/16/2018 07/20/2018 Inactive doxycycline hyclate 100 mg capsule RxNorm: 4070253 1 Capsule(s) PO BID 07/13/2018 07/22/2018 Inactive duloxetine 60 mg capsule,delayed release RxNorm: 283923 TAKE ONE CAPSULE BY MOUTH ONCE A DAY 07/08/2018 01/28/2019 Inactive Lasix 40 mg tablet RxNorm: 013829 1 TABLET(S) PO QAM 06/08/201809/05 Inactive potassium chloride ER 20 mEq tablet,extended release(p art/cryst) RxNorm: 4230132 1 TABLET(S) PO QD 06/08/2018 09/05/2018 Inactive metformin ER 1,000 mg tablet,extended release 24hr RxNorm: 1 187626 TAKE TWO TABLETS (1000MG) BY MOUTH TWO TIMES A DAY 06/01/2018 11/27/2018 Inacti ve Benicar HCT 40 mg-25 mg tablet RxNorm: 120466 TAKE ONE TABLET BY MOUTH ONCE DAILY 05/11/2018 03/28/2019 Inactive Zocor 40 mg tablet RxNorm: 998109 TAKE ONE TABLET BY M OUTH EVERY NIGHT AT BEDTIME 05/11/2018 06/20/2019 Inactive Trelegy Ellipta 100 mcg-62.5 mcg-25 mcg powder for inhalatio n RxNorm: 6649889 1 PUFF(S) INH QD 04/06/2018 07/04/2018 Inactive diltiazem ER 360 mg capsule,24 hr,extended release RxNorm: 8 17675 1 Capsule(s) PO QHS replaces 300mg dose 03/30/2018 09/25/2018 Inactive Trelegy Ellipta 100 mcg-62.5 mcg-25 mcg powder for inhalatio n RxNorm: 2817914 1 Puff(s) INH QD 02/24/2018 02/23/2018 Inactive Trelegy Ellipta 100 mcg-62.5 mcg-25 mcg powder for inhalatio n RxNorm: 4997971 1 Puff(s) INH QD 02/24/2018 02/23/2018 Inactive Trelegy Ellipta 100 mcg-62.5 mcg-25 mcg powder for inhalatio n RxNorm: 8578091 1 Puff(s) INH QD 02/24/2018 04/05/2018 Inactive Lasix 40 mg tablet RxNorm: 913059 1 Tablet(s) PO QAM 02/10/201803/11 Inactive potassium chloride ER 20 mEq tablet,extended release(p art/cryst) RxNorm: 7094425 1 Tablet(s) PO QD 02/10/2018 03/11/2018 Inactive fenofibrate micronized 134 mg capsule RxNorm: 653049 1 Capsule( s) PO QD 01/30/2018 07/28/2018 Inactive metoprolol succinate ER 100 mg tablet,extended release 24 hr RxNorm: 864291 TAKE ONE TABLET BY MOUTH TWICE A DAY 12/30/2017 09/25/2018 Inactive metformin ER 1,000 mg tablet,extended release 24hr RxNorm: 1 909706 1 Tablet(s) PO BID 11/17/2017 05/15/2018 Inactive [SAVINGS FOR NON -COVERED DRUGS -- BIN:720410, PCN: ASPROD1, Group: XXXXX, ID# [id number], Questions: . THIS IS NOT INSURANCE.] Benicar HCT 40 mg-25 mg tablet RxNorm: 670448 1 Tablet(s) PO QD 05/10/2018 Inactive [SAVINGS FOR NON-COVERED JESU GS -- BIN:101170, PCN: ASPROD1, Group: XXXXX, ID# [id number], Questions: . THIS IS NOT INSURANCE.] Bactroban 2 % topical cream RxNorm: 947504 Application TOP BID 10/2409/02/2018 Inactive clindamycin HCl 300 mg capsule RxNorm: 022153 2 Capsule(s) PO TID 0 11/05/2017 11/18/2017 Inactive duloxetine 60 mg capsule,delayed release RxNorm: 439439 Capsule(s) TAKE ONE CAPSULE BY MOUTH ONCE DAILY 09/24/2017 09/23/2017 Inactive triamcinolone acetonide 0.1 % topical ointment RxNorm: 2144628 1 TOP BID 09/09/2017 11/04/2017 Inactive Bactrim DS 800 mg-160 mg tablet RxNorm: 305534 1 Tablet(s) PO BID 0 08/07/2017 08/13/2017 Inactive metronidazole 500 mg tablet RxNorm: 313172 1 Tablet(s) PO BID 08/0708/13/2017 Inactive diltiazem ER 360 mg capsule,24 hr,extended release RxNorm: 8 72583 1 Capsule(s) PO QHS replaces 300mg dose 08/04/2017 01/30/2018 Inactive fenofibrate micronized 134 mg capsule RxNorm: 834907 1 Capsule( s) PO QD 07/21/2017 01/30/2018 Inactive Zocor 40 mg tablet RxNorm: 522241 1 Tablet(s) PO QHS 07/21/201705/10 Inactive GB duloxetine 60 mg capsule,delayed release RxNorm: 593059 Capsule(s) TAKE ONE CAPSULE BY MOUTH ONCE DAILY 06/24/2017 09/24/2017 Inactive Cleocin HCl 300 mg capsule RxNorm: 190425 2 Capsule(s) PO BID 06/0206/08/2017 Inactive acyclovir 800 mg tablet RxNorm: 495323 1 Tablet(s) PO 5x day 201706/08/2017 Inactive diltiazem ER 300 mg capsule,24 hr,extended release RxNorm: 8 73735 1 Capsule(s) PO QHS replaces 240mg dose 05/05/2017 08/03/2017 Inactive ipratropium-albuterol 0.5 mg-3 mg(2.5 mg base)/3 mL ne bulization soln RxNorm: 1061544 1 Unit Dose INH Q4H as needed 05/05/2017 01/04/2019 Inactive metformin ER 1,000 mg tablet,extended release 24hr RxNorm: 1 797730 1 Tablet(s) PO BID 04/28/2017 11/17/2017 Inactive [SAVINGS FOR NON -COVERED DRUGS -- BIN:798826, PCN: ASPROD1, Group: XXXXX, ID# [id number], Questions: . THIS IS NOT INSURANCE.] diltiazem ER (XR/XT) 240 mg capsule,extended release 2 4 hr, controlled RxNorm: 995734 TAKE ONE CAPSULE BY MOUTH EVERY DAY 04/15/2017 05/04/2017 Inact avani prednisone 20 mg tablet RxNorm: 404380 1 Tablet(s) PO QD 04/10/2017 1 06/14/2016 Inactive Breo Ellipta 200 mcg-25 mcg/dose powder for inhalation RxNor m: 8678037 1 Puff(s) INH QD 04/10/2017 02/09/2018 Inactive Breo Ellipta 200 mcg-25 mcg/dose powder for inhalation RxNor m: 6359279 1 Puff(s) INH QD 04/10/2017 04/09/2017 Inactive Levaquin 500 mg tablet RxNorm: 250993 1 Tablet(s) PO QD 04/10/2017 Inactive metoprolol succinate ER 100 mg tablet,extended release 24 hr RxNorm: 064063 TAKE ONE TABLET BY MOUTH TWICE A DAY 03/24/2017 12/18/2017 Inactive fenofibrate micronized 134 mg capsule RxNorm: 257854 1 Capsule( s) PO QD 01/16/2017 07/21/2017 Inactive Benicar HCT 40 mg-25 mg tablet RxNorm: 402963 1 Tablet(s) PO QD 11/17/2017 Inactive [SAVINGS FOR NON-COVERED JESU GS -- BIN:660555, PCN: ASPROD1, Group: XXXXX, ID# [id number], Questions: . THIS IS NOT INSURANCE.] metoprolol succinate ER 100 mg tablet,extended release 24 hr RxNorm: 154954 1 Tablet(s) PO BID 10/16/2016 03/23/2017 Inactive diltiazem ER (XR/XT) 240 mg capsule,extended release 2 4 hr, controlled RxNorm: 386546 1 Capsule(s) PO QD 10/16/2016 04/13/2017 Inactive [SAVINGS FOR NON- COVERED DRUGS -- BIN:465784, PCN: ASPROD1, Group: XXXXX, ID# [id number], Questions: . THIS IS NOT INSURANCE.] metformin ER 1,000 mg tablet,extended release 24hr RxNorm: 8 95995 1 Tablet(s) PO BID 10/16/2016 04/28/2017 Inactive [SAVINGS FOR NON -COVERED DRUGS -- BIN:419300, PCN: ASPROD1, Group: XXXXX, ID# [id number], Questions: . THIS IS NOT INSURANCE.] Zocor 40 mg tablet RxNorm: 878865 1 Tablet(s) PO QHS 10/16/201607/21 Inactive GB Singulair 10 mg tablet RxNorm: 486958 Tablet(s) 1 TABLET(S) PO QHS 08/27/2016 09/02/2018 Inactive prednisone 20 mg tablet RxNorm: 959527 1 Tablet(s) PO QD 08/27/2016 0 08/31/2016 Inactive ipratropium-albuterol 0.5 mg-3 mg(2.5 mg base)/3 mL ne bulization soln RxNorm: 0480555 1 Unit Dose INH Q4H as needed 08/27/2016 05/04/2017 Inactive metoprolol succinate ER 100 mg tablet,extended release 24 hr RxNorm: 974531 TAKE ONE TABLET BY MOUTH TWICE A DAY 08/05/2016 10/16/2016 Inactive duloxetine 60 mg capsule,delayed release RxNorm: 922253 TAKE ONE CAPSULE BY MOUTH ONCE DAILY 08/05/2016 06/24/2017 Inactive prednisone 20 mg tablet RxNorm: 240853 1 Tablet(s) PO QD 06/14/2016 0 06/18/2016 Inactive ipratropium-albuterol 0.5 mg-3 mg(2.5 mg base)/3 mL ne bulization soln RxNorm: 2829093 1 Unit Dose INH Q4H as needed 06/13/2016 08/26/2016 Inactive Levaquin 500 mg tablet RxNorm: 428717 1 Tablet(s) PO QD 06/13/2016 Inactive metoprolol succinate ER 100 mg tablet,extended release 24 hr RxNorm: 120665 1 Tablet(s) PO BID replaces 50mg dose 05/14/2016 07/12/2016 Inactive metoprolol succinate ER 50 mg tablet,extended release 24 hr RxNorm: 885116 1 Tablet(s) PO BID 04/29/2016 05/13/2016 Inactive prednisone 20 mg tablet RxNorm: 957127 1 Tablet(s) PO BID 04/22/2016 04/21/2016 Inactive prednisone 20 mg tablet RxNorm: 571064 1 Tablet(s) PO BID 04/22/2016 04/28/2016 Inactive Singulair 10 mg tablet RxNorm: 094925 Tablet(s) 1 TABLET(S) PO QHS 04/01/2016 08/26/2016 Inactive metoprolol succinate ER 25 mg tablet,extended release 24 hr RxNorm: 556961 1 Tablet(s) PO QHS for blood pressure 04/01/2016 05/13/2016 Inactive fenofibrate micronized 134 mg capsule RxNorm: 892553 TA KE ONE CAPSULE BY MOUTH DAILY 01/25/2016 01/16/2017 Inactive duloxetine 60 mg capsule,delayed release RxNorm: 196877 TAKE ONE CAPSULE BY MOUTH ONCE DAILY 01/25/2016 08/04/2016 Inactive Zocor 40 mg tablet RxNorm: 911595 TAKE ONE TABLET BY MOUTH AT B EDTIME 11/13/2015 10/16/2016 Inactive GB metformin ER 1,000 mg tablet,extended release 24hr RxNorm: 8 80400 1 Tablet(s) PO BID 10/26/2015 10/16/2016 Inactive [SAVINGS FOR NON -COVERED DRUGS -- BIN:191731, PCN: ASPROD1, Group: XXXXX, ID# [id number], Questions: . THIS IS NOT INSURANCE.] Benicar HCT 40 mg-25 mg tablet RxNorm: 806549 1 Tablet(s) PO QD 06/201511/11/2016 Inactive [SAVINGS FOR NON-COVERED JESU GS -- BIN:763681, PCN: ASPROD1, Group: XXXXX, ID# [id number], Questions: . THIS IS NOT INSURANCE.] diltiazem ER (XR/XT) 240 mg capsule,extended release,control led RxNorm: 332391 1 Capsule(s) PO QD 10/26/2015 10/15/2016 Inactive [SAVINGS FOR NO N-COVERED DRUGS -- BIN:923525, PCN: ASPROD1, Group: XXXXX, ID# [id number], Questions: . THIS IS NOT INSURANCE.] Singulair 10 mg tablet RxNorm: 694822 1 TABLET(S) PO QHS 09/18/2015 1 05/31/2015 Inactive Viagra 100 mg tablet RxNorm: 569260 1 Tablet(s) PO as needed 201511/23/2018 Inactive Singulair 10 mg tablet RxNorm: 493907 1 Tablet(s) PO QHS 08/16/2015 0 08/15/2015 Inactive Singulair 10 mg tablet RxNorm: 306224 1 Tablet(s) PO QHS 08/16/2015 0 09/14/2015 Inactive duloxetine 60 mg capsule,delayed release RxNorm: 157187 1 Capsule(s) PO QD replaces fluoxetine 08/14/2015 01/24/2016 Inactive ipratropium-albuterol 0.5 mg-3 mg(2.5 mg base)/3 mL ne bulization soln RxNorm: 2025591 1 Unit Dose INH Q4H as needed 08/14/2015 06/12/2016 Inactive prednisone 20 mg tablet RxNorm: 257931 Take 3 tabs PO o nce daily x 3 days, then 2 tabs PO once daily x 3 days and then 1 tab PO once daily x 3 days 08/09/2015 08/13/2015 Inactive Symbicort 160 mcg-4.5 mcg/actuation HFA aerosol inhaler RxNo rm: 2064975 2 Puff(s) INH BID 08/09/2015 08/13/2015 Inactive Zocor 40 mg tablet RxNorm: 629793 1 Tablet(s) PO QHS 05/23/201511/11 Inactive [AttnRPh: Saving apply/adjudicate RxGRP: SG20 RxBIN:[id number] RxPCN: ID#:[id number]] Benicar HCT 40 mg-25 mg tablet RxNorm: 305343 1 Tablet(s) PO QD 10/26/2015 Inactive [SAVINGS FOR NON-COVERED JESU GS -- BIN:786494, PCN: ASPROD1, Group: XXXXX, ID# [id number], Questions: . THIS IS NOT INSURANCE.] diltiazem ER (XR/XT) 240 mg capsule,extended release,control led RxNorm: 369136 1 Capsule(s) PO QD 04/24/2015 10/20/2015 Inactive [SAVINGS FOR NO N-COVERED DRUGS -- BIN:821398, PCN: ASPROD1, Group: XXXXX, ID# XXXXXXX, Questions: . THIS IS NOT INSURANCE.] fluoxetine 40 mg capsule RxNorm: 016768 1 Capsule(s) PO QD 04/24/20 15 08/13/2015 Inactive [SAVINGS FOR NON-COVERED JESU GS -- BIN:766440, PCN: ASPROD1, Group: XXXXX, ID# XXXXXXX, Questions: . THIS IS NOT INSURANCE.] Zocor 40 mg tablet RxNorm: 387737 TABLET(S) 1 TABLET(S) PO QHS 01/2505/23/2015 Inactive [AttnRPh: Saving apply/adjud icate RxGRP:SG20 RxBIN:[id number] RxPCN:HT ID#:[id number]] metformin ER 1,000 mg tablet,extended release 24hr RxNorm: 8 73732 1 TABLET(S) PO BID 01/29/2015 10/26/2015 Inactive [SAVINGS FOR NON -COVERED DRUGS -- BIN:764943, PCN: ASPROD1, Group: XXXXX, ID# XXXXXXX, Questions: . THIS IS NOT INSURANCE.] fenofibrate micronized 134 mg capsule RxNorm: 533554 1 CAPSULE( S) PO QD 01/23/2015 01/17/2016 Inactive fenofibrate micronized 134 mg capsule RxNorm: 330089 1 Capsule( s) PO QD 11/07/2014 01/22/2015 Inactive diltiazem ER (XR/XT) 240 mg capsule,extended release,control led RxNorm: 821985 1 Capsule(s) PO QD 10/24/2014 04/24/2015 Inactive [SAVINGS FOR NO N-COVERED DRUGS -- BIN:565564, PCN: ASPROD1, Group: XXXXX, ID# XXXXXXX, Questions: . THIS IS NOT INSURANCE.] Benicar HCT 40 mg-25 mg tablet RxNorm: 628370 1 Tablet(s) PO QD 05/201404/24/2015 Inactive [SAVINGS FOR NON-COVERED JESU GS -- BIN:651726, PCN: ASPROD1, Group: XXXXX, ID# XXXXXXX, Questions: . THIS IS NOT INSURANCE.] fluoxetine 40 mg capsule RxNorm: 280967 1 Capsule(s) PO QD 10/25/1904/24/2015 Inactive [SAVINGS FOR NON-COVERED JESU GS -- BIN:066853, PCN: ASPROD1, Group: XXXXX, ID# XXXXXXX, Questions: . THIS IS NOT INSURANCE.] azithromycin 500 mg tablet RxNorm: 474039 1 Tablet(s) PO QD 015 09/27/2014 Inactive [SAVINGS FOR NON-COVERED JESU GS -- BIN:781975, PCN: ASPROD1, Group: XXXXX, ID# XXXXXXX, Questions: . THIS IS NOT INSURANCE.] albuterol sulfate 2.5 mg/3 mL (0.083 %) solution for n ebulization RxNorm: 588192 3 Milliliter(s) INH ONE VIAL VIA NEBULIZER EVERY 4 HOURS 015 11/19/2014 Inactive [AttnRPh: Saving apply/adjudicate RxGRP: SG20 RxBIN:[id number] RxPCN: ID#:[id number]] Zocor 40 mg tablet RxNorm: 651263 TABLET(S) 1 TABLET(S ) PO QHS 1 TABLET(S) PO QHS 09/04/2014 02/21/2015 Inactive [AttnRPh: Saving apply/adjudicate RxGRP:SG20 RxBIN:[id number] RxPCN:HT ID#:[id number]] metformin ER 1,000 mg tablet,extended release 24hr RxNorm: 8 38664 1 Tablet(s) PO BID 08/04/2014 01/28/2015 Inactive [SAVINGS FOR NON -COVERED DRUGS -- BIN:035954, PCN: ASPROD1, Group: XXXXX, ID# XXXXXXX, Questions: . THIS IS NOT INSURANCE.] Bromfed DM 2 mg-30 mg-10 mg/5 mL syrup RxNorm: 5405403 1 -2 Teaspoon(s) PO Q4H as needed for cough 06/10/2014 06/19/2014 Inactive [SAVINGS FOR UN INSURED PATIENTS -- BIN:037599, PCN: ASPROD1, Group: AME08, ID# [id number], Process claim through [facility], for questions: . THIS IS NOT INSURANCE.] Augmentin 875 mg-125 mg tablet RxNorm: 742310 1 Tablet(s) PO Q12H 0 06/10/2014 06/19/2014 Inactive [AttnRPh: Saving apply/adjud icate RxGRP:SG20 RxBIN:[id number] RxPCN:HT ID#:[id number]] Zocor 40 mg tablet RxNorm: 606137 Tablet(s) 1 TABLET(S ) PO QHS 1 TABLET(S) PO QHS 05/25/2014 08/22/2014 Inactive [AttnRPh: Saving apply/adjudicate RxGRP:SG20 RxBIN:[id number] RxPCN:HT ID#:[id number]] fluoxetine 40 mg capsule RxNorm: 843479 1 Capsule(s) PO QD 04/29/20 14 10/24/2014 Inactive [AttnRPh: Saving apply/adjud icate RxGRP:SG20 RxBIN:[id number] RxPCN:HT ID#:[id number]] diltiazem ER (XR/XT) 240 mg capsule,extended release,control led RxNorm: 139246 1 Capsule(s) PO QD 04/29/2014 10/24/2014 Inactive [AttnRPh: Leonelin g apply/adjudicate RxGRP:SG20 RxBIN:[id number] RxPCN:HT ID#:[id number]] Benicar HCT 40 mg-25 mg tablet RxNorm: 235516 1 Tablet(s) PO QD 09/201310/24/2014 Inactive [AttnRPh: Saving apply/adjud icate RxGRP:SG20 RxBIN:[id number] RxPCN:HT ID#:[id number]] Zocor 40 mg tablet RxNorm: 882473 1 TABLET(S) PO QHS 1 TABLET(S ) PO QHS 03/07/2014 05/25/2014 Inactive [AttnRPh: Saving chelsie ly/adjudicate RxGRP:SG20 RxBIN:[id number] RxPCN:HT ID#:[id number]] Zocor 40 mg tablet RxNorm: 580713 1 Tablet(s) PO QHS 1 TABLET(S ) PO QHS 12/06/2013 03/05/2014 Inactive [AttnRPh: Saving chelsie ly/adjudicate RxGRP:SG20 RxBIN:[id number] RxPCN:HT ID#:[id number]] diltiazem ER (XR/XT) 240 mg capsule,extended release,control led RxNorm: 426592 1 Capsule(s) PO QD 10/25/2013 04/22/2014 Inactive [AttnRPh: Leonelin g apply/adjudicate RxGRP:SG20 RxBIN:[id number] RxPCN:HT ID#:[id number]] fluoxetine 40 mg capsule RxNorm: 612138 1 Capsule(s) PO QD 10/26/19 14 04/22/2014 Inactive [AttnRPh: Saving apply/adjud icate RxGRP:SG20 RxBIN:[id number] RxPCN: ID#:[id number]] Zocor 40 mg tablet RxNorm: 895560 1 Tablet(s) PO QHS 1 TABLET(S ) PO QHS 09/13/2013 12/06/2013 Inactive metformin ER 1,000 mg tablet,extended release 24hr RxNorm: 8 83907 Tablet(s) PO TAKE 1 TABLET BY MOUTH TWICE DAILY (REPLACES 500MG DOSE) 07/26/201303/2015 Inactive diltiazem ER (XR/XT) 240 mg capsule,extended release,control led RxNorm: 254191 1 Capsule(s) PO QD 05/03/2013 10/25/2013 Inactive fluoxetine 40 mg capsule RxNorm: 492811 1 Capsule(s) PO QD 05/03/20 13 10/25/2013 Inactive Benicar HCT 40 mg-25 mg tablet RxNorm: 637750 1 Tablet(s) PO QD 01/201304/29/2014 Inactive Zocor 40 mg tablet RxNorm: 415543 1 Tablet(s) PO QHS 12/10/201209/13 Inactive fluoxetine 40 mg capsule RxNorm: 873387 1 Capsule(s) PO QD 11/10/19 13 05/03/2013 Inactive diltiazem ER (XR/XT) 240 mg capsule,extended release,control led RxNorm: 018977 1 Capsule(s) PO QD 11/09/2012 05/03/2013 Inactive Benicar HCT 40 mg-25 mg tablet RxNorm: 450686 1 Tablet(s) PO QD 05/03/2013 Inactive metformin ER 1,000 mg tablet,extended release 24hr RxNorm: 8 05516 Tablet(s) PO TAKE 1 TABLET BY MOUTH TWICE DAILY (REPLACES 500MG DOSE) 08/05/201206/2013 Inactive Zocor 40 mg tablet RxNorm: 952034 1 Tablet(s) PO QHS 06/15/201212/09 Inactive fluoxetine 40 mg capsule RxNorm: 628850 1 Capsule(s) PO QD 05/15/20 12 11/08/2012 Inactive Neurontin 600 mg Tab RxNorm: 760079 1 Tablet(s) PO QHS 12/03/2011 Inactive metformin ER 1,000 mg tablet,extended release 24hr RxNorm: 8 92788 1 Tablet(s) PO BID replaces 500mg dose 12/03/2011 07/26/2013 Inactive Zocor 40 mg tablet RxNorm: 257999 1 Tablet(s) PO QHS 12/03/201106/15 Inactive fluoxetine 20 mg capsule RxNorm: 539736 1 Capsule(s) PO QD 12/03/19 12 05/24/2012 Inactive diltiazem ER (XR/XT) 240 mg capsule,extended release,control led RxNorm: 178468 1 Capsule(s) PO QD 11/15/2011 11/09/2012 Inactive Benicar HCT 40 mg-25 mg tablet RxNorm: 631373 1 Tablet(s) PO QD 02/16/2012 Inactive metformin ER 500 mg 24 hr Tab RxNorm: 447450 1 Tablet(s) PO BID 12/02/2011 Inactive Zocor 40 mg Tab RxNorm: 372983 1 Tablet(s) PO QHS 05/30/2011 11/25/19 12 Inactive fluoxetine 20 mg Cap RxNorm: 483814 1 Capsule(s) PO QD 05/28/2011 Inactive Neurontin 600 mg Tab RxNorm: 612068 1 Tablet(s) PO QHS 05/28/2011 Inactive Neurontin 600 mg Tab RxNorm: 469515 1 Tablet(s) PO QHS 02/22/201106/2011 Inactive Neurontin 600 mg Tab RxNorm: 359781 1 Tablet(s) PO QHS 01/14/2011 Inactive Neurontin 300 mg Cap RxNorm: 224674 1 Capsule(s) PO QHS 01/14/2011 Inactive Neurontin 600 mg Tab RxNorm: 850346 1 Tablet(s) PO QHS 01/14/2011 Inactive Medrol (Vipul) 4 mg Tabs in a Dose Pack RxNorm: 078641 Tablet(s) PO 0 01/02/2011 08/28/2011 Inactive as directed fluoxetine 20 mg Cap RxNorm: 561723 1 Capsule(s) PO QD 12/10/201006/2011 Inactive Zocor 40 mg Tab RxNorm: 484563 1 Tablet(s) PO QHS 12/03/2010 05/29/19 12 Inactive Neurontin 300 mg Cap RxNorm: 781909 1 Capsule(s) PO QHS 12/03/2010 Inactive Septra DS 800 mg-160 mg Tab RxNorm: 561035 1 Tablet(s) PO BID 11/2912/08/2010 Inactive diltiazem ER (XR/XT) 240 mg Continuous Release Cap RxNorm: 8 07694 1 Capsule(s) PO QD 11/20/2010 11/15/2011 Inactive Neurontin 300 mg Cap RxNorm: 574021 1 Capsule(s) PO QHS 11/06/2010 Inactive Neurontin 300 mg Cap RxNorm: 461797 1 Capsule(s) PO QHS 11/06/2010 Inactive Celebrex 200 mg Cap RxNorm: 422164 1 Capsule(s) PO BID 10/24/2010 Inactive fluoxetine 20 mg Cap RxNorm: 474117 1 Capsule(s) PO QD 06/07/201003/2011 Inactive Zocor 40 mg Tab RxNorm: 383214 1 Tablet(s) PO QHS 06/05/2010 12/02/19 11 Inactive Benicar HCT 40 mg-25 mg Tab RxNorm: 708499 1 Tablet(s) PO QD 200908/21/2011 Inactive Diltiazem 240 mg Continuous Release Cap RxNorm: 325736 1 Capsul e(s) PO QD 11/09/2009 09/02/2018 Inactive Avelox 400 mg Tab RxNorm: 015819 1 Tablet(s) PO QD 08/22/2009 010 Inactive ProAir HFA 90 mcg/actuation aerosol inhaler RxNorm: 356457 2 Puff(s) INH Q4H as needed No Start Date Active tramadol 50 mg tablet RxNorm: 472151 1-2 Tablet(s) PO TID as ne eded for pain No Start Date Active Tylenol Arthritis 650 mg Tab RxNorm: 4809699 2 Tablet(s) PO QD No Sta rt Date Active Celebrex 200 mg Cap RxNorm: 415917 1 Capsule(s) PO BID No Start Date 08/08/2015 Inactive Medrol (Vipul) 4 mg Tabs in a Dose Pack RxNorm: 023906 Tablet(s) PO N o Start Date 01/01/2011 Inactive as directed Promethazine-DM 6.25 mg-15 mg/5 mL Syrup RxNorm: 959085 1-2 Teaspoon(s) PO Q4H prn cough No Start Date 08/28/2011 Inactive Claritin 10 mg tablet RxNorm: 415142 1 Tablet(s) PO QD No Start Date 08/08/2015 Inactive [facility]-P[facility]-115HC Oral RxNorm: Oral No Start Da te 03/28/2019 Inactive Breo Ellipta 200 mcg-25 mcg/dose powder for inhalation RxNor m: 0432050 1 Puff(s) INH QD No Start Date 04/09/2017 Inactive metformin 500 mg Tab RxNorm: 494115 1 Tablet(s) PO QD No Start Date 0 08/17/2011 Inactive Diltiazem 240 mg Continuous Release Cap RxNorm: 626592 1 Capsul e(s) PO BID No Start Date 11/08/2009 Inactive fluoxetine 20 mg Cap RxNorm: 506999 1 Capsule(s) PO QD No Start Date 06/07/2010 Inactive Multivitamin & Mineral Formula Oral RxNorm: Oral No Start Da te 03/28/2019 Inactive Medrol (Vipul) 4 mg tablets in a dose pack RxNorm: 676416 Tablet(s) PO as directed No Start Date 05/28/2012 Inactive Fish Oil 1,000 mg Cap RxNorm: 1 Capsule(s) PO QD No Start Date 07/2018 Inactive Nexium 40 mg Cap RxNorm: 998009 1 Capsule(s) PO QD No Start Date 07/24 Inactive fluticasone 50 mcg/actuation nasal spray,suspension RxNorm: 6473931 2 Beccaria NASAL QD to each nostril No Start Date 08/03/2017 Inactive Viagra 100 mg tablet RxNorm: 241046 1 Tablet(s) PO as needed No Sta rt Date 09/17/2015 Inactive prednisone 20 mg tablet RxNorm: 376485 1 Tablet(s) PO B ID for 4 days then 1 po daily for 4 days No Start Date 11/23/2018 Inactive Benicar HCT 40 mg-25 mg Tab RxNorm: 069552 1 Tablet(s) PO QD No Sta rt [...] Date S ervice Location MICROALBUMIN URINE RANDOM 65378 MICRL MG/L 5.8 MG/L 03/2011 Unknown MICROALBUMIN URINE RANDOM 35215 XM.ALB/CRE 5.2 MG/GCR Unknown MICROALBUMIN URINE RANDOM 72291 CREAT MG/D 111 MG/DL 03/2011 Unknown MICROALBUMIN URINE RANDOM 42345 CRE/100 1.11 G/L 12/24 Unknown Procedures Procedure Codes Date FLU VACC PRSV FREE INC ANTIG 65 AND OLDER CPT-4: 09184 03/04/2019 ADMIN PNEUMOCOCCAL VACCINE CPT-4: G0009 03/04/2019 ADMIN INFLUENZA VIRUS VAC CPT-4: G0008 03/04/2019 FLU VACC PRSV FREE INC ANTIG 65 AND OLDER CPT-4: 19752 03/04/2019 PNEUMOCOCCAL VACC 23 [facility]MON IM CPT-4: 61329 03/04/2019 THER/PROPH/DIAG INJ SC/IM CPT-4: 62008 08/11/2018 TRIAMCINOLONE ACET INJ NOS CPT-4: J3301 08/11/2018 DEXAMETHASONE SODIUM PHOS CPT-4: J1100 08/11/2018 THER/PROPH/DIAG INJ SC/IM CPT-4: 80051 07/16/2018 METHYLPREDNISOLONE INJECTION CPT-4: J2930 07/16/2018 INFLUENZA ASSAY W/OPTIC CPT-4: 53941 07/16/2018 THER/PROPH/DIAG INJ SC/IM CPT-4: 91761 07/13/2018 TRIAMCINOLONE ACET INJ NOS CPT-4: J3301 07/13/2018 THER/PROPH/DIAG INJ SC/IM CPT-4: 22330 05/04/2018 METHYLPREDNISOLONE INJECTION CPT-4: J2930 05/04/2018 FLU VACC PRSV FREE INC ANTIG 65 AND OLDER CPT-4: 37669 02/10/2018 PNEUMOCOCCAL VACC 13 R[facility]MON IM CPT-4: 71949 02/10/2018 ADMIN INFLUENZA VIRUS VAC CPT-4: G0008 02/10/2018 ADMIN PNEUMOCOCCAL VACCINE CPT-4: G0009 02/10/2018 THER/PROPH/DIAG INJ SC/IM CPT-4: 14076 09/09/2017 TRIAMCINOLONE ACET INJ NOS CPT-4: J3301 09/09/2017 ALBUTEROL NON-COMP UNIT CPT-4: J7613 04/10/2017 AIRWAY INHALATION TREATMENT CPT-4: 82348 04/10/2017 PRESCRIP TRANSMIT VIA ERX SY CPT-4: G8553 04/10/2017 FLU VACC PRSV FREE INC ANTIG 65 AND OLDER CPT-4: 31384 03/28/2017 ADMIN INFLUENZA VIRUS VAC CPT-4: G0008 03/28/2017 PRESCRIP TRANSMIT VIA ERX SY CPT-4: G8553 08/27/2016 PRESCRIP TRANSMIT VIA ERX SY CPT-4: G8553 06/14/2016 ALBUTEROL NON-COMP UNIT CPT-4: J7613 06/13/2016 AIRWAY INHALATION TREATMENT CPT-4: 89962 06/13/2016 PRESCRIP TRANSMIT VIA ERX SY CPT-4: [...] CPT-4: G8553 11/07/2014 THER/PROPH/DIAG INJ SC/IM CPT-4: 93181 09/21/2014 METHYLPREDNISOLONE INJECTION CPT-4: J2930 09/21/2014 PRESCRIP TRANSMIT VIA ERX SY CPT-4: G8553 09/21/2014 PRESCRIP TRANSMIT VIA ERX SY CPT-4: G8553 06/10/2014 URINALYSIS NONAUTO W/O SCOPE CPT-4: 00866 06/01/2012 PRESCRIP TRANSMIT VIA ERX SY CPT-4: G8553 05/25/2012 PRESCRIP TRANSMIT VIA ERX SY CPT-4: G8553 12/03/2011 CUR TOBACCO NON-USER CPT-4: G8457 05/30/2011 PRESCRIP TRANSMIT VIA ERX SY CPT-4: G8553 05/30/2011 URINALYSIS NONAUTO W/O SCOPE CPT-4: 14417 01/01/2011 URINE CULTURE/ COLONY COUNT CPT-4: 65546 01/01/2011 CUR TOBACCO NON-USER CPT-4: G8457 01/01/2011 [...] 1: 114/68 Code: 8480-6 BMI: 43.5 Code: 53563-2 Heart Rate 1: 52 bpm Height: 6'1" [...] 1: 136/72 Code: 8480-6 BMI: 42.7 Code: 16337-1 Heart Rate 1: 60 bpm Height: 6'1" Respiratory Rate: 22 bpm SpO2: 95% Tempera ture: 37.1 (C) / 98.7 (F) Weight: 324 lbs 02/10/2018 Blood Pressure 1: 146/78 Code: 8480-6 BMI: 42.4 Code: 36606-8 Heart Rate 1: 64 bpm Height: 6'1" Respiratory Rate: 22 bpm SpO2: 95% Tempera ture: 36.5 (C) / 97.7 (F) Weight: 321 lbs 11/05/2017 Blood Pressure 1: 128/84 Code: 8480-6 BMI: 42.9 Code: 70814-4 Heart Rate 1: 52 bpm Height: 6'1" Respiratory Rate: 22 bpm SpO2: 95% Tempera ture: 36.3 (C) / 97.3 (F) Weight: 325 lbs 09/09/2017 Blood Pressure 1: 162/90 Code: 8480-6 BMI: 42.5 Code: 37694-9 Heart Rate 1: 60 bpm Height: 6'1" Respiratory Rate: 24 bpm SpO2: 95% Tempera ture: 36.4 (C) / 97.6 (F) Weight: 322 lbs 08/07/2017 Blood Pressure 1: 152/90 Code: 8480-6 BMI: 42.2 Code: 47016-6 Heart Rate 1: 60 bpm Height: 6'1" Respiratory Rate: 26 bpm SpO2: 94% Tempera ture: 36.6 (C) / 97.8 (F) Weight: 320 lbs 08/04/2017 Blood Pressure 1: 150/86 Code: 8480-6 BMI: 42.7 Code: 59252-4 Heart Rate 1: 64 bpm Height: 6'1" Respiratory Rate: 20 bpm SpO2: 94% Tempera ture: 36.3 (C) / 97.3 (F) Weight: 324 lbs 06/04/2017 Blood Pressure 1: 164/90 Code: 8480-6 Heart Rate 1: 60 bpm Respiratory Rate: 24 bpm SpO2: 94% Temperature: 36.8 (C) / 98.3 (F) 06/02/2017 Blood Pressure 1: 162/80 Code: 8480-6 BMI: 42.9 Code: 45170-7 Heart Rate 1: 66 bpm Height: 6'1" Respiratory Rate: 22 bpm SpO2: 98% Tempera ture: 36.6 (C) / 97.8 (F) Weight: 325 lbs 05/05/2017 Blood Pressure 1: 164/94 Code: 8480-6 BMI: 41.4 Code: 64972-9 Heart Rate 1: 64 bpm Height: 6'1" Respiratory Rate: 22 bpm SpO2: 95% Tempera ture: 36.4 (C) / 97.5 (F) Weight: 314 lbs 04/10/2017 Blood Pressure 1: 136/78 Code: 8480-6 BMI: 42.0 Code: 73457-7 Heart Rate 1: 76 bpm Height: 6'1" Respiratory Rate: 24 bpm SpO2: 92% Tempera ture: 35.9 (C) / 96.7 (F) Weight: 318 lbs 02/03/2017 Blood Pressure 1: 134/82 Code: 8480-6 BMI: 41.7 Code: 37141-1 Heart Rate 1: 72 bpm Height: 6'1" Respiratory Rate: 24 bpm SpO2: 95% Tempera ture: 36.1 (C) / 97.0 (F) Weight: 316 lbs 10/30/2016 Blood Pressure 1: 126/74 Code: 8480-6 BMI: 41.3 Code: 34775-6 Heart Rate 1: 68 bpm Height: 6'1" Respiratory Rate: 20 bpm Temperature: 37 .1 (C) / 98.8 (F) Weight: 313 lbs 08/30/2016 Blood Pressure 1: 146/80 Code: 8480-6 BMI: 41.7 Code: 38458-9 Heart Rate 1: 64 bpm Height: 6'1" Respiratory Rate: 24 bpm SpO2: 94% Tempera ture: 36.6 (C) / 97.8 (F) Weight: 316 lbs 08/27/2016 Blood Pressure 1: 124 Code: 8480-6 Heart Rate 1: 66 bpm Height: 6'2" Respiratory Rate: 18 bpm SpO2: 94% Temperature: 36.6 (C) / 97.8 (F) Weight: 07/02/2016 Blood Pressure 1: 126 Code: 8480-6 BMI: 41.4 Code: 32737-1 Heart Rate 1: 68 bpm Height: 6'1" Respiratory Rate: 24 bpm SpO2: 94% Tempera ture: 36.6 (C) / 97.8 (F) Weight: 314 lbs 06/14/2016 Blood Pressure 1: 146/82 Code: 8480-6 Heart Rate 1: 80 bpm Respiratory Rate: 20 bpm SpO2: 95% Temperature: 37.3 (C) / 99.2 (F) 06/13/2016 Blood Pressure 1: 146/84 Code: 8480-6 BMI: 40.5 Code: 27679-1 Heart Rate 1: 66 bpm Height: 6'1" Respiratory Rate: 28 bpm SpO2: 93% Tempera ture: 35.8 (C) / 96.4 (F) Weight: 307 lbs 05/14/2016 Blood Pressure 1: 146/90 Code: 8480-6 BMI: 41.2 Code: 23098-1 Heart Rate 1: 68 bpm Height: 6'1" Respiratory Rate: 26 bpm Temperature: 36 .8 (C) / 98.2 (F) Weight: 312 lbs 04/29/2016 Blood Pressure 1: 152/90 Code: 8480-6 BMI: 41.0 Code: 08563-4 Heart Rate 1: 68 bpm Height: 6'1" Respiratory Rate: 26 bpm SpO2: 94% Tempera ture: 36.1 (C) / 96.9 (F) Weight: 311 lbs 04/22/2016 Blood Pressure 1: 152/94 Code: 8480-6 BMI: 40.9 Code: 99726-8 Heart Rate 1: 68 bpm Height: 6'1" Respiratory Rate: 24 bpm SpO2: 94% Tempera ture: 36.2 (C) / 97.2 (F) Weight: 310 lbs 04/01/2016 Blood Pressure 1: 156/78 Code: 8480-6 BMI: 40.6 Code: 77460-2 Heart Rate 1: 84 bpm Height: 6'1" Respiratory Rate: 22 bpm SpO2: 95% Tempera ture: 37.1 (C) / 98.7 (F) Weight: 308 lbs 11/30/2015 Blood Pressure 1: 142/80 Code: 8480-6 BMI: 40.5 Code: 53189-7 Heart Rate 1: 88 bpm Height: 6'1" Respiratory Rate: 22 bpm Temperature: 36 .2 (C) / 97.2 (F) Weight: 307 lbs 08/29/2015 Blood Pressure 1: 132/70 Code: 8480-6 BMI: 40.0 Code: 69618-1 Heart Rate 1: 76 bpm Height: 6'1" Respiratory Rate: 24 bpm SpO2: 96% Tempera ture: 36.7 (C) / 98.0 (F) Weight: 303 lbs 08/14/2015 Blood Pressure 1: 126/80 Code: 8480-6 BMI: 39.4 Code: 54791-6 Heart Rate 1: 92 bpm Height: 6'1" Respiratory Rate: 24 bpm SpO2: 94% Tempera ture: 37.8 (C) / 100.0 (F) Weight: 299 lbs 08/09/2015 Blood Pressure 1: 146/82 Code: 8480-6 Heart Rate 1: 82 bpm Respiratory Rate: 22 bpm SpO2: 93% Temperature: 35.9 (C) / 96.6 (F) We ight: 310 lbs 05/22/2015 Blood Pressure 1: 156/76 Code: 8480-6 BMI: 41.0 Code: 01504-7 Heart Rate 1: 100 bpm Height: 6'1" Respiratory Rate: 22 bpm Temperature: 37 .2 (C) / 98.9 (F) Weight: 311 lbs 02/13/2015 Blood Pressure 1: 166/90 Code: 8480-6 BMI: 41.2 Code: 80120-3 Heart Rate 1: 72 bpm Height: 6'1" Respiratory Rate: 24 bpm SpO2: 93% Tempera ture: 36.9 (C) / 98.5 (F) Weight: 312 lbs 11/07/2014 Blood Pressure 1: 134/70 Code: 8480-6 BMI: 40.5 Code: 05581-7 Heart Rate 1: 76 bpm Height: 6'1" Respiratory Rate: 24 bpm Temperature: 36 .9 (C) / 98.4 (F) Weight: 307 lbs 10/04/2014 Blood Pressure 1: 144/86 Code: 8480-6 BMI: 40.1 Code: 22880-9 Heart Rate 1: 76 bpm Height: 6'1" Respiratory Rate: 28 bpm Temperature: 36 .6 (C) / 97.9 (F) Weight: 304 lbs 09/22/2014 Blood Pressure 1: 142/80 Code: 8480-6 BMI: 40.0 Code: 50084-9 Heart Rate 1: 80 bpm Height: 6'1" Respiratory Rate: 22 bpm SpO2: 96% Tempera ture: 36.6 (C) / 97.8 (F) Weight: 303 lbs 09/21/2014 Blood Pressure 1: 160/66 Code: 8480-6 BMI: 40.0 Code: 65003-3 Heart Rate 1: 90 bpm Height: 6'1" Respiratory Rate: 26 bpm SpO2: 94% Tempera ture: 35.7 (C) / 96.2 (F) Weight: 303 lbs 06/28/2014 Blood Pressure 1: 132/80 Code: 8480-6 BMI: 41.0 Code: 76804-9 Heart Rate 1: 64 bpm Height: 6' Respiratory Rate: 20 bpm Temperature: 36 .7 (C) / 98.0 (F) Weight: 302 lbs 06/10/2014 Blood Pressure 1: 152/70 Code: 8480-6 BMI: 41.1 Code: 30805-6 Heart Rate 1: 76 bpm Height: 6' Respiratory Rate: 20 bpm Temperature: 36 .6 (C) / 97.8 (F) Weight: 303 lbs 03/29/2014 Blood Pressure 1: 132/78 Code: 8480-6 BMI: 40.6 Code: 56788-7 Heart Rate 1: 84 bpm Height: 6' Respiratory Rate: 22 bpm Temperature: 37 .1 (C) / 98.8 (F) Weight: 299 lbs 11/30/2013 Blood Pressure 1: 136/84 Code: 8480-6 BMI: 39.2 Code: 10164-9 Heart Rate 1: 76 bpm Height: 6' Respiratory Rate: 20 bpm Temperature: 36 .8 (C) / 98.2 (F) Weight: 289 lbs 08/03/2013 Blood Pressure 1: 144/80 Code: 8480-6 Heart Rate 1: 86 bpm Respiratory Rate: 20 bpm Temperature: 36.6 (C) / 97.8 (F) Weight: 296 lbs 04/06/2013 Blood Pressure 1: 142/90 Code: 8480-6 BMI: 40.3 Code: 34484-1 Heart Rate 1: 88 bpm Height: 6' Respiratory Rate: 20 bpm Temperature: 36 .6 (C) / 97.8 (F) Weight: 297 lbs 12/01/2012 Blood Pressure 1: 124/78 Code: 8480-6 BMI: 38.7 Code: 74615-6 Heart Rate 1: 76 bpm Height: 6' Respiratory Rate: 20 bpm Temperature: 37 .2 (C) / 98.9 (F) Weight: 285 lbs 08/04/2012 Blood Pressure 1: 128/80 Code: 8480-6 BMI: 38.2 Code: 25507-5 Heart Rate 1: 76 bpm Height: 6' Respiratory Rate: 20 bpm Temperature: 37 .0 (C) / 98.6 (F) Weight: 282 lbs 05/29/2012 Blood Pressure 1: 138/78 Code: 8480-6 BMI: 36.6 Code: 87632-8 Heart Rate 1: 66 bpm Height: 6' Temperature: 36.7 (C) / 98.1 (F) Weight: 270 lbs 05/25/2012 Blood Pressure 1: 128/72 Code: 8480-6 BMI: 39.9 Code: 47491-9 Heart Rate 1: 74 bpm Height: 6' Temperature: 36.1 (C) / 97.0 (F) Weight: 294 lbs 04/07/2012 Blood Pressure 1: 124/76 Code: 8480-6 BMI: 39.9 Code: 16337-8 Heart Rate 1: 72 bpm Height: 6' Respiratory Rate: 20 bpm Temperature: 36 .9 (C) / 98.5 (F) Weight: 294 lbs 12/16/2011 Blood Pressure 1: 128/80 Code: 8480-6 BMI: 40.8 Code: 95495-3 Heart Rate 1: 74 bpm Height: 6' Temperature: 36.6 (C) / 97.8 (F) Weight: 301 lbs 12/03/2011 Blood Pressure 1: 132/76 Code: 8480-6 BMI: 40.8 Code: 08767-4 Heart Rate 1: 68 bpm Height: 6' Respiratory Rate: 20 bpm Temperature: 36 .8 (C) / 98.2 (F) Weight: 301 lbs 08/29/2011 Blood Pressure 1: 140/68 Code: 8480-6 BMI: 40.8 Code: 61535-3 Heart Rate 1: 80 bpm Height: 6' Respiratory Rate: 20 bpm Temperature: 36 .4 (C) / 97.6 (F) Weight: 301 lbs 05/30/2011 Blood Pressure 1: 134/82 Code: 8480-6 BMI: 41.5 Code: 87704-8 Heart Rate 1: 76 bpm Height: 6' [...] 1: 126/72 Code: 8480-6 BMI: 41.2 Code: 01396-5 Heart Rate 1: 76 bpm Height: 6' [...] 1: 152/90 Code: 8480-6 BMI: 37.7 Code: 83576-0 Heart Rate 1: 92 bpm Height: 6'1" Temperature: 38.3 (C) / 101.0 (F) Weight : 286 lbs Functional Status No Functional Status data Reason For Visit Reason For Visit Effective Dates Notes follow up 08/30/2019 Discuss singulair th erapy follow up 08/10/2019 cellulitis 07/06/2019 follow up 05/10/2019 follow up 03/29/2019 [facility] fwup injection(s) 03/04/2019 follow up 01/05/2019 [...] dm Encounters Encounter Performer Location Codes Date ([id number]) OFFICE/OUTPATIENT VISIT EST Diagnosis: Chronic obstructive pulmonary disease, unspecified[ICD10: J44.9] Diagnosis: Essential (primary) hypertension[ICD10: I10] Diagnosis: Mixed hyperlipidemia[ICD10: E78.2] Diagnosis: Type 2 diabetes mellitus with hyperglycemia[ICD10: E11.65] Neela HYMAN DO [facility] CPT-4: 51792 08/30/2019 ([id number]) OFFICE/OUTPATIENT VISIT EST Diagnosis: Chronic obstructive pulmonary disease with (acute) exacerbation[ICD10: J44.1] Neela HYMAN DO [facility] CPT- 4: 92462 08/10/2019 ([id number]) OFFICE/OUTPATIENT VISIT EST Diagnosis: Sore on toe[ICD10: L98.9] Neela VASQUEZ DO [facility] CPT-4: 48374 07/06/2019 ([id number]) OFFICE/OUTPATIENT VISIT EST Diagnosis: Advanced chronic obstructive pulmonary disease[ICD10: J44.9] 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] Neela HYMAN DO [facility] CPT-4: 91683 05/10/2019 ([id number]) OFFICE/OUTPATIENT VISIT EST Diagnosis: Chronic obstructive pulmonary disease with (acute) exacerbation[ICD10: J44.1] Diagnosis: Hypokalemia[ICD10: E87.6] 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] Neela HYMAN DO [facility] CPT-4: 95214 03/29/2019 ([id number]) NURSE/OUTPATIENT VISIT EST Diagnosis: PNEUMOCOCCAL VACCINE[ICD10: Z23] Neela HYMAN DO [facility] CPT-4: 62925 03/04/2019 ([id number]) OFFICE/OUTPATIENT VISIT EST Diagnosis: Chronic obstructive pulmonary disease with (acute) exacerbation[ICD10: J44.1] Diagnosis: Other nonspecific abnormal finding of lung field[ICD10: R91.8] Neela HYMAN DO [facility] CPT-4: 56438 01/05/2019 ([id number]) OFFICE/OUTPATIENT VISIT EST Diagnosis: Solitary pulmonary nodule[ICD10: R91.1] 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] Diagnosis: Tinea corporis[ICD10: B35.4] Neela HYMAN [facility] CPT-4: 41255 12/09/2018 ([id number]) OFFICE/OUTPATIENT VISIT EST Diagnosis: COUGH[ICD10: R05] Diagnosis: Chronic obstructive pulmonary disease, unspecified[ICD10: J44.9] Diagnosis: Other disorders of lung[ICD10: J98.4] Diagnosis: Other nonspecific abnormal finding of lung field[ICD10: R91.8] Neela HYMAN [employer] [facility] CPT-4: 61508 11/24/2018 ([id number]) OFFICE/OUTPATIENT VISIT EST Diagnosis: Pneumonia, unspecified organism[ICD10: J18.9] Amita HYMAN [employer] [facility] CPT-4: 61899 09/16/2018 ([id number]) OFFICE/OUTPATIENT VISIT EST Diagnosis: Pneumonia, unspecified organism[ICD10: J18.9] Neela HYMAN [facility] CPT-4: 58863 09/03/2018 ([id number]) OFFICE/OUTPATIENT VISIT EST Diagnosis: Personal history of pneumonia (recurrent)[ICD10: Z87.01] Diagnosis: Cough[ICD10: R05] Diagnosis: Essential (primary) hypertension[ICD10: I10] Diagnosis: Type 2 diabetes mellitus with hyperglycemia[ICD10: E11.65] Amita MURILLO [email or web address] [facility] CPT-4: 82948 08/27/2018 OFFICE/OUTPATIENT VISIT EST Diagnosis: Pneumonia, unspecified organism[ICD10: J18.9] Diagnosis: Chronic obstructive pulmonary disease with (acute) exacerbation[ICD10: J44.1] Diagnosis: Other specified symptoms and signs involving the circulatory and respiratory systems[ICD10: R09.89] Diagnosis: Essential (primary) hypertension[ICD10: I10] Amita [email or web address] [facility] CPT-4: 79746 08/13/2018 OFFICE/OUTPATIENT VISIT EST Diagnosis: Pneumonia, unspecified organism[ICD10: J18.9] Diagnosis: Other specified symptoms and signs involving the circulatory and respiratory systems[ICD10: R09.89] Amita Cunningham [email or web address] [facility] CPT-4: 50778 08/11/2018 ([id number]) OFFICE/OUTPATIENT VISIT EST Diagnosis: Dyspnea, unspecified[ICD10: R06.00] Diagnosis: Chronic obstructive pulmonary disease with (acute) exacerbation[ICD10: J44.1] Diagnosis: Pneumonia, unspecified organism[ICD10: J18.9] Amita MIRZALINE Julissa[employer]endez [facility] CPT-4: 37959 07/16/2018 ([id number]) OFFICE/OUTPATIENT VISIT EST Diagnosis: Acute bronchitis due to other specified organisms[ICD10: J20.8] Diagnosis: Cough[ICD10: R05] Amita MIRZALINE [facility]Mendez [facility] T-4: 99651 07/13/2018 ([id number]) OFFICE/OUTPATIENT VISIT EST Diagnosis: Essential (primary) hypertension[ICD10: I10] Diagnosis: Chronic obstructive pulmonary disease, unspecified[ICD10: J44.9] Diagnosis: Type 2 diabetes mellitus with hyperglycemia[ICD10: E11.65] Diagnosis: Mixed hyperlipidemia[ICD10: E78.2] Neela Sergemelany STERLING [employer] [facility] CPT-4: 84838 06/03/2018 ([id number]) OFFICE/OUTPATIENT VISIT EST Diagnosis: Chronic obstructive pulmonary disease, unspecified[ICD10: J44.9] Gely MIRZALINE Octavio HYMAN [employer] [facility] CPT-4: 26227 05/04/2018 ([id number]) OFFICE/OUTPATIENT VISIT EST Diagnosis: Essential (primary) hypertension[ICD10: I10] Diagnosis: Localized edema[ICD10: R60.0] Neela Yenni NEELA [employer] YENNI [employer] [facility] CPT-4: 54393 03/03/2018 ([id number]) OFFICE/OUTPATIENT VISIT EST Diagnosis: Localized edema[ICD10: R60.0] Neela Sergegemmainna NEELA JulissaMendez YENNI [employer] [facility] CPT-4: 54907 02/17/2018 ([id number]) OFFICE/OUTPATIENT VISIT EST Diagnosis: FLU VACCINE[ICD10: Z23] Diagnosis: PNEUMOCOCCAL VACCINE[ICD10: Z23] Diagnosis: Type 2 diabetes mellitus without complications[ICD10: E11.9] Diagnosis: Mixed hyperlipidemia[ICD10: E78.2] Diagnosis: Essential (primary) hypertension[ICD10: I10] Diagnosis: Localized edema[ICD10: R60.0] Diagnosis: Chronic obstructive pulmonary disease, unspecified[ICD10: J44.9] Neela HYMAN [facility] CPT-4: 76760 02/10/2018 ([id number]) OFFICE/OUTPATIENT VISIT EST Diagnosis: Type 2 diabetes mellitus with hyperglycemia[ICD10: E11.65] Diagnosis: Mixed hyperlipidemia[ICD10: E78.2] Diagnosis: Essential (primary) hypertension[ICD10: I10] Diagnosis: Chronic obstructive pulmonary disease, unspecified[ICD10: J44.9] Diagnosis: Cutaneous abscess of back [any part, except buttock][ICD10: L02.212] Neela HYMAN [facility] CPT-4: 82261 11/05/2017 ([id number]) OFFICE/OUTPATIENT VISIT EST Diagnosis: Allergic urticaria[ICD10: L50.0] Gely HYMAN DO [employer] CPT-4: 61184 09/09/2017 ([id number]) OFFICE/OUTPATIENT VISIT EST Diagnosis: Generalized enlarged lymph nodes[ICD10: R59.1] Diagnosis: Acute gastritis without bleeding[ICD10: K29.00] Gely HYMAN [facility] CPT-4: 87803 08/07/2017 ([id number]) OFFICE/OUTPATIENT VISIT EST Diagnosis: Type 2 diabetes mellitus without complications[ICD10: E11.9] Diagnosis: Mixed hyperlipidemia[ICD10: E78.2] Diagnosis: Essential (primary) hypertension[ICD10: I10] Neela HYMAN [facility] CPT-4: 77307 08/04/2017 ([id number]) OFFICE/OUTPATIENT VISIT EST Diagnosis: Zoster without complications[ICD10: B02.9] Diagnosis: Acute sialoadenitis[ICD10: K11.21] Gely STERLING [employer] HYMAN [facility] CPT-4: 26358 06/04/2017 OFFICE/OUTPATIENT VISIT EST Diagnosis: Zoster without complications[ICD10: B02.9] Diagnosis: Acute sialoadenitis[ICD10: K11.21] Gely STERLING [employer] HYMAN [facility] CPT-4: 14299 06/02/2017 ([id number]) OFFICE/OUTPATIENT VISIT EST Diagnosis: Type 2 diabetes mellitus without complications[ICD10: E11.9] Diagnosis: Mixed hyperlipidemia[ICD10: E78.2] Diagnosis: Essential (primary) hypertension[ICD10: I10] Diagnosis: Chronic obstructive pulmonary disease, unspecified[ICD10: J44.9] Neela HYMAN DO [facility] CPT-4: 29375 05/05/2017 OFFICE/OUTPATIENT VISIT EST Diagnosis: Chronic obstructive pulmonary disease with acute lower respiratory infection[ICD10: J44.0] Diagnosis: Impacted cerumen, bilateral[ICD10: H61.23] Gely HYMAN [employer] [facility] CPT-4: 68479 04/10/2017 ([id number]) OFFICE/OUTPATIENT VISIT EST Diagnosis: FLU VACCINE[ICD10: Z23] Neela BUI [employer] [facility] CPT-4: 12291 03/28/2017 ([id number]) OFFICE/OUTPATIENT VISIT EST Diagnosis: Type 2 diabetes mellitus without complications[ICD10: E11.9] Diagnosis: Mixed hyperlipidemia[ICD10: E78.2] Diagnosis: Essential (primary) hypertension[ICD10: I10] Diagnosis: Chronic obstructive pulmonary disease, unspecified[ICD10: J44.9] Neeal HYMAN [employer] [facility] CPT-4: 95808 02/03/2017 ([id number]) OFFICE/OUTPATIENT VISIT EST Diagnosis: Type 2 diabetes mellitus with hyperglycemia[ICD10: E11.65] Diagnosis: Mixed hyperlipidemia[ICD10: E78.2] Diagnosis: Essential (primary) hypertension[ICD10: I10] Diagnosis: Chronic obstructive pulmonary disease, unspecified[ICD10: J44.9] Neela HYMAN [employer] [facility] CPT-4: 74309 10/30/2016 ([id number]) NO CHARGE Diagnosis: Acute bronchitis, unspecified[ICD10: J20.9] Sammi Najera NEELA Octavio HYMAN [employer] [facility] CPT-4: 86357 08/30/2016 ([id number]) OFFICE/OUTPATIENT VISIT EST Diagnosis: Acute bronchitis, unspecified[ICD10: J20.9] Diagnosis: Other seasonal allergic rhinitis[ICD10: J30.2] Sammi HYMAN DO [facility] CPT-4: 82576 08/27/2016 ([id number]) OFFICE/OUTPATIENT VISIT EST Diagnosis: Type 2 diabetes mellitus without complications[ICD10: E11.9] Diagnosis: Mixed hyperlipidemia[ICD10: E78.2] Diagnosis: Essential (primary) hypertension[ICD10: I10] Neela HYMAN DO [facility] CPT-4: 56868 07/02/2016 ([id number]) OFFICE/OUTPATIENT VISIT EST Diagnosis: Acute bronchitis, unspecified[ICD10: J20.9] Sammi HYMAN DO [facility] CPT-4: 06727 06/14/2016 ([id number]) OFFICE/OUTPATIENT VISIT EST Diagnosis: Acute bronchitis, unspecified[ICD10: J20.9] Sammi HYMAN DO [facility] CPT-4: 88295 06/13/2016 ([id number]) OFFICE/OUTPATIENT VISIT EST Diagnosis: Essential (primary) hypertension[ICD10: I10] Neela HYMAN DO [facility] CPT-4: 13565 05/14/2016 ([id number]) OFFICE/OUTPATIENT VISIT EST Diagnosis: Essential (primary) hypertension[ICD10: I10] Neela HYMAN DO [facility] CPT-4: 15439 04/29/2016 ([id number]) OFFICE/OUTPATIENT VISIT EST Diagnosis: Unspecified abdominal pain[ICD10: R10.9] Diagnosis: Left lower quadrant pain[ICD10: R10.32] Diagnosis: Left upper quadrant pain[ICD10: R10.12] Diagnosis: Essential (primary) hypertension[ICD10: I10] Neela HYMAN DO [facility] CPT-4: 29471 04/22/2016 ([id number]) OFFICE/OUTPATIENT VISIT EST Diagnosis: Type 2 diabetes mellitus without complications[ICD10: E11.9] Diagnosis: Mixed hyperlipidemia[ICD10: E78.2] Diagnosis: Essential (primary) hypertension[ICD10: I10] Neela HYMAN DO [facility] CPT-4: 06970 04/01/2016 ([id number]) OFFICE/OUTPATIENT VISIT EST Diagnosis: Type 2 diabetes mellitus with hyperglycemia[ICD10: E11.65] Diagnosis: Mixed hyperlipidemia[ICD10: E78.2] Diagnosis: Essential (primary) hypertension[ICD10: I10] Neela MURILLO Octavio HYMAN DO [facility] CPT-4: 27811 11/30/2015 ([id number]) OFFICE/OUTPATIENT VISIT EST Diagnosis: Type 2 diabetes mellitus with diabetic neuropathy, unspecified[ICD10: E11.40] Diagnosis: Essential (primary) hypertension[ICD10: I10] Diagnosis: Mixed hyperlipidemia[ICD10: E78.2] Neela FRIEND ASHER HYMAN DO [facility] CPT-4: 57882 08/29/2015 ([id number]) OFFICE/OUTPATIENT VISIT EST Diagnosis: COUGH[ICD10: R05] Diagnosis: Wheezing[ICD10: R06.2] Diagnosis: Type 2 diabetes mellitus with diabetic neuropathy, unspecified[ICD10: E11.40] Neela MURILLO JulissaMendez YENNI ARTHUR [facility] CPT-4: 26342 08/14/2015 ([id number]) OFFICE/OUTPATIENT VISIT EST Diagnosis: Other seasonal allergic rhinitis[ICD10: J30.2] Diagnosis: Dyspnea, unspecified[ICD10: R06.00] Diagnosis: Wheezing[ICD10: R06.2] Sammi MURILLO Octavio HYMAN DO [facility] CPT-4: 31794 08/09/2015 ([id number]) OFFICE/OUTPATIENT VISIT EST Diagnosis: Essential (primary) hypertension[ICD10: I10] Diagnosis: Type 2 diabetes mellitus with hyperglycemia[ICD10: E11.65] Diagnosis: Mixed hyperlipidemia[ICD10: E78.2] Neela STERLING Octavio HYMAN [employer] [facility] CPT-4: 04522 05/22/2015 ([id number]) OFFICE/OUTPATIENT VISIT EST Diagnosis: 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] Diagnosis: - I - HYPERTENSION[ICD9: 401.9] Diagnosis: - I - HYPERLIPIDEMIA NEC/NOS[ICD9: 272.4] Diagnosis: Left hand paresthesia[ICD9: 782.0] Neela STERLING Julissa. YENNI [employer] [facility] CPT-4: 39212 02/13/2015 ([id number]) OFFICE/OUTPATIENT VISIT EST Diagnosis: HYPERLIPIDEMIA NEC/NOS[ICD9: 272.4] Diagnosis: 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] Neela HYMAN [facility] CPT-4: 74589 11/07/2014 ([id number]) OFFICE/OUTPATIENT VISIT EST Diagnosis: ALLERGIC RHINITIS[ICD9: 477.9] Diagnosis: WHEEZING[ICD9: 786.07] Neela Duarte [employer] [facility] CPT-4: 49484 10/04/2014 ([id number]) OFFICE/OUTPATIENT VISIT EST Diagnosis: BRONCHITIS, ACUTE[ICD9: 466.0] Diagnosis: WHEEZING[ICD9: 786.07] Loren Duarte [facility] CPT-4: 09535 09/22/2014 ([id number]) OFFICE/OUTPATIENT VISIT EST Diagnosis: DYSPNEA[ICD9: 786.09] Diagnosis: WHEEZING[ICD9: 786.07] Diagnosis: Arrhythmia[ICD9: 427.9] Loren BUI [facility] CPT-4: 44965 09/21/2014 ([id number]) OFFICE/OUTPATIENT VISIT EST Diagnosis: 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, 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] Diagnosis: - I - HYPERLIPIDEMIA NEC/NOS[ICD9: 272.4] Diagnosis: - I - HYPERTENSION[ICD9: 401.9] Neela Sergegemmainna NEELA Octavio HYMAN [facility] CPT-4: 14056 06/28/2014 OFFICE/OUTPATIENT VISIT EST Diagnosis: SINUSITIS, ACUTE[ICD9: 461.9] Diagnosis: OTITIS MEDIA NOS[ICD9: 382.9] Sarah Sunshine [facility]ELA [facility] 88251 06/10/2014 ([id number]) OFFICE/OUTPATIENT VISIT EST Diagnosis: 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] Diagnosis: - I - HYPERLIPIDEMIA NEC/NOS[ICD9: 272.4] Diagnosis: - I - HYPERTENSION[ICD9: 401.9] Neela MURILLO Octavio HYMAN [facility] CPT-4: 70776 03/29/2014 ([id number]) OFFICE/OUTPATIENT VISIT EST Diagnosis: 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] Diagnosis: - I - HYPERTENSION[ICD9: 401.9] Diagnosis: - I - HYPERLIPIDEMIA NEC/NOS[ICD9: 272.4] Diagnosis: Hand lesion[ICD9: 709.9] Neela MADRIGAL [facility] CPT-4: 73744 11/30/2013 ([id number]) OFFICE/OUTPATIENT VISIT EST Diagnosis: 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] Diagnosis: HYPERLIPIDEMIA NEC/NOS[ICD9: 272.4] Diagnosis: HYPERTENSION[ICD9: 401.9] Neela VASQUEZ [employer] [facility] CPT-4: 01858 08/03/2013 ([id number]) OFFICE/OUTPATIENT VISIT EST Diagnosis: 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, 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] Diagnosis: HYPERTENSION[ICD9: 401.9] Diagnosis: HYPERLIPIDEMIA NEC/NOS[ICD9: 272.4] Neela GREGORIO SMendez ZHANG [employer] [facility] CPT-4: 47508 04/06/2013 ([id number]) OFFICE/OUTPATIENT VISIT EST Diagnosis: 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] Diagnosis: HYPERLIPIDEMIA NEC/NOS[ICD9: 272.4] Diagnosis: HYPERTENSION[ICD9: 401.9] Neela VASQUEZ [employer] [facility] CPT-4: 83665 12/01/2012 ([id number]) OFFICE/OUTPATIENT VISIT EST Diagnosis: 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] Diagnosis: HYPERTENSION[ICD9: 401.9] Diagnosis: HYPERLIPIDEMIA NEC/NOS[ICD9: 272.4] Neela ZHANG [employer] [facility] CPT-4: 83180 08/04/2012 ([id number]) OFFICE/OUTPATIENT VISIT EST Diagnosis: URINARY FREQUENCY[ICD9: 788.41] Neelasabina MIRZALINE Octavio HYMAN [facility] CPT-4: 57160 06/01/2012 OFFICE/OUTPATIENT VISIT EST Diagnosis: Agitation[ICD9: 307.9] Diagnosis: Frequent urination[ICD9: 788.41] Janet Jean Baptiste NEELA JulissaMendez [facility] CPT-4: 11677 05/29/2012 OFFICE/OUTPATIENT VISIT EST Diagnosis: SINUSITIS, ACUTE[ICD9: 461.9] Diagnosis: OTALGIA[ICD9: 388.70] Neela MURILLO JulissaMendez [facility] CPT-4: 82408 05/25/2012 OFFICE/OUTPATIENT VISIT EST Diagnosis: 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, 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] Diagnosis: HYPERTENSION[ICD9: 401.9] Diagnosis: HYPERLIPIDEMIA NEC/NOS[ICD9: 272.4] Neela GREGORIO SMendez [facility] CPT-4: 84545 04/07/2012 OFFICE/OUTPATIENT VISIT EST Diagnosis: FINGER INJURY[ICD9: 959.5] Janet Markel MURILLO JulissaMendez [facility] CPT-4: 64603 12/16/2011 ([id number]) OFFICE/OUTPATIENT VISIT EST Diagnosis: 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, 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] Diagnosis: HYPERTENSION[ICD9: 401.9] Diagnosis: HYPERLIPIDEMIA NEC/NOS[ICD9: 272.4] Neela GREGORIO S. [facility] CPT-4: 40942 12/03/2011 ([id number]) OFFICE/OUTPATIENT VISIT EST Diagnosis: 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] Diagnosis: HYPERLIPIDEMIA NEC/NOS[ICD9: 272.4] Diagnosis: HYPERTENSION[ICD9: 401.9] Neela Cunningham [facility] CPT-4: 71012 08/29/2011 OFFICE/OUTPATIENT VISIT EST Diagnosis: 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] Diagnosis: HYPERLIPIDEMIA NEC/NOS[ICD9: 272.4] Diagnosis: HYPERTENSION[ICD9: 401.9] Neela MURILLO SMendez [facility] CPT-4: 27613 05/30/2011 OFFICE/OUTPATIENT VISIT EST Diagnosis: SKIN SENSATION DISTURB[ICD9: 782.0] Neela GREGORIO S. [facility] CPT-4: 27828 01/29/2011 OFFICE/OUTPATIENT VISIT EST Diagnosis: SKIN SENSATION DISTURB[ICD9: 782.0] Neela GREGORIO [facility] CPT-4: 90516 01/14/2011 OFFICE/OUTPATIENT VISIT EST Neela [facility] CPT- 4: 69740 01/01/2011 OFFICE/OUTPATIENT VISIT EST Neela [facility] CPT- 4: 31705 11/29/2010 ([id number]) OFFICE/OUTPATIENT VISIT EST Neela HORAN SMendez [facility] CPT-4: 99650 08/28/2010 ([id number]) OFFICE/OUTPATIENT VISIT, EST Neela WILDE SMendez [facility] CPT-4: 84118 06/05/2010 ([id number]) OFFICE/OUTPATIENT VISIT, EST Neela WILDE S[facility] CPT-4: 14377 02/05/2010 ([id number]) OFFICE/OUTPATIENT VISIT, EST Neela WILDE SMendez [facility] CPT-4: 59441 10/09/2009 ([id number]) OFFICE/OUTPATIENT VISIT, EST Neela WILDE [facility] CPT-4: 98736 08/22/2009 Plan of Care Planned Activity Notes [...] ICD-10 : J44.9 08/30/2019 Visit Diagnosis Plan: Chronic obstructiv e [...] : J44.1 08/10/2019 Appointment: Neela Hyman WPtel: [address] [place] [address] ACUTE ILLNESS 08/10/2019 Visit Diagnosis Plan: Sore on toe Discussion: Keep farhat an/dry Keflex Notify if worsens ICD-9 : 709.9 ICD-10 : L98.9 07/06/2019 Appointment: Neela Hyman WPtel: [address] [place] [address] ACUTE ILLNESS 07/06/2019 Patient Education: Makenzieir- [employer] [phone] [id number] https://www.[employer]arma/[employer]Val[employer]/resources/getResource/61/[email or web address] Completed 07/06/2019 Visit Diagnosis Plan: Lymphoma involving lung Discussi on: Doing weekly lab and chemo ICD-9 : 202.82 ICD-10 : C85.99 05/10/2019 Visit Diagnosis Plan: Advanced chronic obstructive pul monary disease Discussion: Continue oxygen and pulmonary rehab Follow Up: 3 months ICD-9 : 496 ICD-10 : J44.9 05/10/2019 Appointment: Neela Hyman WPtel: [address] [place] [address] FOLLOW UP 05/10/2019 Appointment: Neela Hyman WPtel: [address] [place] [address] he called 04/14/19-- he was at physical [...] : C85.99 03/29/2019 Appointment: Neela Hyman WPtel: [address] [place], [place] [address] Hospital Follow Up 03/29/2019 Appointment: Neela Hyman WPtel: [address] [place], [place] [phone] [place] INJECTION 03/04/2019 Visit Diagnosis Plan: Chronic obstructiv e pulmonary disease with (acute) exacerbation Discussion: Increase SVNS with duoneb to QID Prednisone taper ICD-9 : 491.21 ICD-10 : J44.1 01/05/2019 Visit Diagnosis Plan: Other nonspecific abnormal findi ng of lung field Discussion: Referral to pulmonology--will likely need bronchoscopy--path results discussed ICD-9 : 786.6 ICD-10 : R91.8 01/05/2019 Appointment: Neela Hyman WPtel: [address] [place] [address] FOLLOW UP 01/05/2019 Patient Education: prednisone- [employer] Coupon [phone] https://www.[employer]arma/[employer]/resources/getResource/61/[email or web address]-[email or web address]-sy Completed 01/05/2019 Care Plan: Referral Order SNOMED-CT : 30 [id number] Pending 01/05/2019 Appointment: Neela Hyman WPtel: [address] [place], [place] [phone] CANCELED 12/21/2018 Visit Diagnosis Plan: Solitary pulmonary nodule Discus esmer: CT guided needle biopsy of RUL lung mass ICD-9 : 793.11 ICD-10 : R91.1 12/09/2018 Visit Diagnosis Plan: Tinea corporis Discussion: Diflu can--hold simvastatin and fenofibrate while taking ICD-9 : 110.5 ICD-10 : B35.4 12/09/2018 Appointment: Neela Hyman WPtel: [address] [place] [address] [place] FOLLOW UP 12/09/2018 Appointment: Gely Harp [address] NO SHOW 12/01/2018 Visit Diagnosis Plan: Chronic [...] : J98.4 11/24/2018 Appointment: Neela Hyman WPtel: [address] [place] [address] FOLLOW UP 11/24/2018 Care Plan: PET IMAGE FULL BODY LOINC : 4 2711-2 Pending 11/24/2018 Appointment: Neela Hyman WPtel: [address] [place] [address] [place] Consult 09/21/2018 Visit Diagnosis Plan: Pneumonia, unspecified organism Discussion: Patient clinically improved. Recent CT scan from 09/07 showed unresolved right upper lobe pneumonia. Finished another 7 days of levaquin. Will repeat CBC early next week. Order sent with patient to get done at [facility]. FU CT recommended in 4 weeks. Patient states understanding. ICD-9 : 486 ICD-10 : J18.9 09/16/2018 Appointment: Amita Henderson [address] [place] [address] [place] FOLLOW UP 09/16/2018 Visit Diagnosis Plan: Pneumonia, unspecified organism Discussion: Clinically patient feels and looks much better but need CT scan of chest due to ongoing round pneumonia in association with his known lymphoma ICD-9 : 486 ICD-10 : J18.9 09/03/2018 Appointment: Neela Hyman WPtel: [address] [place], [place] [address] [place] FOLLOW UP 09/03/2018 Care Plan: CT THORAX [...] ICD-10 : I10 08/27/2018 Appointment: Amita Henderson [facility] [id number] 08/27/2018 Visit Diagnosis Plan: Chronic [...] ICD-10 : R09.89 08/13/2018 Appointment: Amita Henderson [address] [place], [place] [id number] [place] FOLLOW UP 08/13/2018 Appointment: Amita Henderson [address] [place], [place] [address] CANCELED 08/13/2018 Patient Education: prednisone- [employer] Coupon [phone] https://www.Karma/[employer]Val[employer]/resources/getResource/61/[email or web address] Completed 08/13/2018 Visit Diagnosis Plan: Other specified [...] ICD-10 : J18.9 08/11/2018 Appointment: Amita Henderson [address] [place], [place] [phone] ACUTE ILLNESS 08/11/2018 Care Plan: CHEST X-RAY 2VW FRONTAL&LATL LOINC : 04462-0 Pending 07/20/2018 Visit Diagnosis Plan: Dyspnea, unspecified Discussion: CXR- to be completed at the hospital. Will call with results and any adjustments in plan. Solumedrol 125 administered in clinic Prednisone 20 mg BID x 5 days- start tomorrow ICD-9 : 786.09 ICD-10 : R06.00 07/16/2018 Appointment: Amita Henderson [address] [place], [place] [address] ACUTE ILLNESS 07/16/2018 Patient Education: prednisone- [employer] Coupon [phone] https://www.Karma/samplemd/resources/getResource/61/83v2k1nl-tk99-5ug9-[email or web address] Completed 07/16/2018 Visit Diagnosis Plan: Acute bronchitis due to other sp ecified organisms Discussion: Kenalog 40 mg IM administered in clinic. Doxycycline called into [facility]. Take as directed. Continue nebulizer and Trelegy. Follow up if symptoms are not improving with treatment regimen. Patient states understanding of all instruction. ICD-9 : 466.0 ICD-10 : J20.8 07/13/2018 Appointment: Amita Henderson [facility]0 [facility] ACUTE ILLNESS 07/13/2018 Patient Education: doxycycline hyclate- [employer] Cou saritha [phone] https://www.[employer]/samplemd/resources/getResource/61/0v361v91-6e0m-3002-3a Completed 07/13/2018 Care Plan: [place] : [address]-4 Pending 07/13/2018 Care Plan: CBC Pending 07/13/2018 Care Plan: A1C HPLC LOINC : 85897-3 Pending 07/13/2018 Visit Diagnosis Plan: Mixed hyperlipidemia [...] 06/03/2018 Appointment: Neela Hyman WPtel: [address] [facility] FOLLOW UP 06/03/2018 Visit Diagnosis Plan: Chronic [...] ICD-10 : J44.9 05/04/2018 Appointment: Gely Harp [address] [place] [address] ACUTE ILLNESS 05/04/2018 Visit Diagnosis Plan: Localized edema Discussion: Cont inue lasix and potassium at every other day Recheck lab and fwup in 3mos Follow Up: 3 months ICD-9 : 782.3 ICD-10 : R60.0 03/03/2018 Appointment: Neela Hyman WPtel: [address] [place] [address] FOLLOW UP 03/03/2018 Patient Education: Patient Medication Summary Completed 03/03/2018 Visit Diagnosis Plan: Localized edema Discussion: Finch ge lasix and potassium to every other day Check Chem 7 in 2 weeks and fwup ICD-9 : 782.3 ICD-10 : R60.0 02/17/2018 Appointment: Neela Hyman WPtel: [address] [place] [address] FOLLOW UP 02/17/2018 Patient Education: Patient Medication Summary Completed 02/17/2018 Visit Diagnosis Plan: Type 2 diabetes mellitus without complications Discussion: Lab discussed continue current meds Accuchecks daily ICD-9 : 250.00 ICD-10 : E11.9 02/10/2018 Visit Diagnosis Plan: Localized edema Discussion: Lasi x and potassium and recheck 1 week ICD-9 : 782.3 ICD-10 : R60.0 02/10/2018 Visit Diagnosis Plan: Chronic obstructive pulmonary di sease, unspecified Discussion: Trelagy 1p daily ICD-9 : 496 ICD-10 : J44.9 02/10/2018 Visit Diagnosis Plan: Essential (primary) hypertension Discussion: Will see if improves with lasix and potassium ICD-9 : 401.9 ICD-10 : I10 02/10/2018 Visit Diagnosis Plan: Mixed hyperlipidemia Discussion: Stable ICD-9 : 272.4 ICD-10 : E78.2 02/10/2018 Appointment: Neela Hyman WPtel: [address] [place] [address] [place] FOLLOW UP 02/10/2018 Patient Education: Patient [...] I10 11/05/2017 Appointment: Neela Hyman WPtel: [address] [facility] FOLLOW UP 11/05/2017 Patient Education: Patient Medication Summary Completed 11/05/2017 Patient Education: Patient Medication Summary Completed 11/03/2017 Care Plan: [place] : [address]-7 Pending 11/03/2017 Care Plan: LIPID PANEL LOINC : 07162-6 Pending 11/03/2017 Care Plan: CBC Pending 11/03/2017 Care Plan: A1C HPLC LOINC : 94803-5 Pending 11/03/2017 Visit Diagnosis Plan: Allergic urticaria [...] : L50.0 09/09/2017 Appointment: [facility] [facility] 09/09/2017 Patient Education: Patient Medication [...] ICD-10 : K29.00 08/07/2017 Appointment: Gely Harp [address] [place] [address] Follow Up 08/07/2017 Patient Education: Patient Medication Summary Completed 08/07/2017 Visit Diagnosis Plan: Essential (primary) hypertension Discussion: Increase Cardizem CD to 360mg daily ICD-9 : 401.9 ICD-10 : I10 08/04/2017 Visit Diagnosis Plan: Type 2 diabetes mellitus without complications Discussion: Accuchecks daily Lab discussed Continue current meds ICD-9 : 250.00 ICD-10 : E11.9 08/04/2017 Appointment: Neela Hyman WPtel: [address] [facility] FOLLOW UP 08/04/2017 Patient Education: Patient Medication Summary Completed 08/04/2017 Patient Education: Patient Medication Summary Completed 07/31/2017 Care Plan: [place] : [address]-0 Pending 07/31/2017 Care Plan: ASSAY THYROID STIM HORMONE Pen ding 07/31/2017 Care Plan: LIPID PANEL LOINC : 40685-2 Pending 07/31/2017 Care Plan: CBC Pending 07/31/2017 Care Plan: A1C HPLC LOINC : 94629-1 Pending 07/31/2017 Patient Education: Patient Medication Summary Completed 06/19/2017 Patient Education: Patient Medication Summary Completed 06/09/2017 Care Plan: CT SOFT TISSUE [place] : [address]-6 Pending 06/09/2017 Visit Diagnosis Plan: Zoster without [...] ICD-10 : K11.21 06/04/2017 Appointment: Gely Harp [address] [place] [address] ACUTE ILLNESS 06/04/2017 Patient Education: Patient Medication [...] ICD-10 : B02.9 06/02/2017 Appointment: Gely Harp [address] [place], [place] [phone] ACUTE ILLNESS 06/02/2017 Patient Education: Patient Medication [...] : E78.2 05/05/2017 Appointment: Neela Hyman WPtel: [facility] [place] [phone] FOLLOW UP 05/05/2017 Patient Education: Patient Medication Summary Completed 05/05/2017 Patient Education: Patient Medication Summary Completed 05/01/2017 Care Plan: A1C HPLC [facility] : 94879-5 Pending 05/01/2017 Visit Diagnosis Plan: Chronic obstructiv [...] ICD-10 : H61.23 04/10/2017 Appointment: Gely Harp [address] [place] [address] ACUTE ILLNESS 04/10/2017 Patient Education: Patient Medication Summary Completed 04/10/2017 Appointment: Neela Hyman WPtel: [facility] INJECTION 03/28/2017 Patient Education: Patient Medication Summary [...] 401.9 ICD-10 : I10 02/03/2017 Appointment: Neela Hyman: [facility]5 [facility] [place] FOLLOW UP 02/03/2017 Patient Education: Patient Medication Summary Completed 02/03/2017 Patient Education: Patient Medication Summary Completed 01/30/2017 Care Plan: COMPREH[place] : [address]70-2 Pending 01/30/2017 Care Plan: LIPID PANEL LOINC : 29904-0 Pending 01/30/2017 Care Plan: CBC Pending 01/30/2017 Care Plan: A1C HPLC LOINC : 88254-0 Pending 01/30/2017 Care Plan: ASSAY OF PSA TOTAL LOINC : 12 841-3 Pending 01/30/2017 Visit Diagnosis Plan: Type 2 diabetes mellitus [...] ICD-9 : 496 ICD-10 : J44.9 10/30/2016 Appointment: Neela Hyman WPtel: [address] [place], [place] [phone] [place] 6/6 lm ~sl 6/ confirmed~sl FOLLOW UP 11/2016 Patient Education: Patient Medication Summary Completed 10/30/2016 Patient Education: Patient Medication Summary Completed 10/24/2016 Visit Diagnosis Plan: Acute bronchitis, unspecified Di scussion: Patient sounds and looks much improved Continue current regimen Keep appt with Dr Levi for Friday Follow up PRN ICD-9 : 466.0 ICD-10 : J20.9 08/30/2016 Appointment: Sammi Najera [address] [place], [place] [address] [place] 4/6 rang and rang rang 4/7 [...] : J20.9 08/27/2016 Appointment: Sammi Najera [address] [facility] FOLLOW UP 08/27/2016 Patient Education: Patient Medication Summary Completed 08/27/2016 Care Plan: Referral Order SNOMED-CT : 30 8026795 Pending 08/27/2016 Visit Diagnosis Plan: Type 2 [...] : E78.2 07/02/2016 Appointment: Neela Hyman WPtel: [address] [place], [place] [phone] 07/01 rang and rang`sl FOLLOW UP 7 Patient Education: Patient Medication Summary Completed 07/02/2016 Patient Education: Patient Medication Summary Completed 06/27/2016 Care Plan: LIPID PANEL LOINC : 99073-8 Pending 06/27/2016 Care Plan: [place] : [address]-8 Pending 06/27/2016 Care Plan: A1C HPLC LOINC : 63283-1 Pending 06/27/2016 Visit Diagnosis Plan: Acute bronchitis, [...] ICD-10 : J20.9 06/14/2016 Appointment: Sammi Najera [address] [place], [place] [phone] FOLLOW UP 06/14/2016 Patient Education: Patient Medication [...] : J20.9 06/13/2016 Appointment: Sammi Najera [address] [place] [address] ACUTE ILLNESS 06/13/2016 Patient Education: Patient Medication Summary Completed 06/13/2016 Care Plan: CHEST X-RAY 2VW FRONTAL&LATL LOINC : 55372-4 Pending 06/13/2016 Visit Plan: Increase metoprolol to 100mg po BID BP readings and BP check in 1month 05/14/2016 Appointment: Neela Hyman WPtel: [address] [place] [address] 05/13 rang and rang`sl FOLLOW UP 6 Patient Education: Patient Medication Summary Completed 05/14/2016 Visit Plan: Increase metoprolol to 50mg BID BP check in 1 week f/u BP appt 2 weeks consider musculoskeletal if pain returns 04/29/2016 Appointment: Neela Hyman WPtel: [address] [place], [place] [address] 04/25 confimred~sl FOLLOW UP 04/29/2016 Patient Education: Patient Medication Summary Completed 04/29/2016 Visit Plan: Stat CT scan of abdomen/pelv is to look for stone Hydrate and use tramadol prn Increase metoprolol to 25mg po BID Will see urology pending CT scan results 04/22/2016 Appointment: Neela Hyman WPtel: [address] [place], [place] [address] 04/17 confirmed-sp ACUTE ILLNESS 04/22/2016 Patient Education: [...] flu shot 04/01/2016 Appointment: Neela Hyman WPtel: [address] [place] [address] FOLLOW UP 04/01/2016 Patient Education: Patient Medication Summary Completed 04/01/2016 Patient Education: [facility] - Saving AutoInj - 18-64 - Dynamic Heber [place] ID Completed 04/01/2016 Patient Education: Patient Medication Summary Completed 03/28/2016 Care Plan: A1C HPLC LOINC : 10392-3 Pending 03/28/2016 Care Plan: [place] : [address]-9 Pending 03/28/2016 Visit Plan: Lab discussed Continue curre nt meds Accuchecks daily 11/30/2015 Appointment: Neela Hyman WPtel: [address] [place], [place] [phone] / confirmed~sl FOLLOW UP 11/30/2015 Patient Education: Patient Medication Summary Completed 11/30/2015 Appointment: Neela Hyman WPtel: [address] [place], [place] [phone] RESCHEDULED 11/28/2015 Patient Education: Patient Medication Summary Completed 11/23/2015 Care Plan: [place] : [address]-4 Pending 11/23/2015 Care Plan: LIPID PANEL LOINC : 03914-0 Pending 11/23/2015 Care Plan: CBC Pending 11/23/2015 Care Plan: A1C HPLC LOINC : 28241-7 Pending 11/23/2015 Visit Plan: Lab discussed Accuchecks richard ly Continue current meds Cymbalta helping with feet and mood 08/29/2015 Appointment: Neela Hyman WPtel: [phone] [facility] FOLLOW UP 08/29/2015 Patient Education: Patient Medication Summary Completed 08/29/2015 Visit Plan: Check CXR Stop all steroids and steroid inhalers Use SVN with but change to duoneb Add singulair for allergy etiology Change fluoxetine to cymbalta 60mg daily Viagra samples given to try prn--warned of no nitrates 08/14/2015 Appointment: Neela Hyman WPtel: [phone] [facility] lm to reschedule ~sl 07/27 lm ~sl 08/09 busy 08/10 fer rosales-sp Annual Well Visit 08/14/2015 Patient Education: Patient Medication Summary Completed 08/14/2015 Care Plan: CHEST X-RAY 2VW FRONTAL&LATL LOINC : 42865-5 Ordered 08/14/2015 Visit Plan: Decadron 8mg given [...] improving as expected 08/09/2015 Appointment: Sammi Najera [address] [facility] ER Follow UP 08/09/2015 Patient Education: Patient Medication Summary Completed 08/09/2015 Patient Education: [facility] - Saving AutoInj - 18-64 - Dynamic Heber l ID Completed 08/09/2015 Patient Education: Symbicort - 18-64 - eCopay Completed 08/09/2015 Patient Education: Patient Medication Summary Completed 08/08/2015 Visit Plan: Lab discussed Surinder munguia Patient admits has changed eating habits--was eating twinkies and cookies routinely and has stopped buying those Will keep meds same for now Justino got hearing aids and is doing well with it 05/22/2015 Appointment: Neela Hyman WPtel: [address] [place], [place] [address] 05/17 confirmed~sl FOLLOW UP 05/22/2015 Patient Education: Patient Medication Summary Completed 05/22/2015 Patient Education: Patient Medication Summary Completed 05/15/2015 Visit Plan: Obtain EMGs done at [place] from when fractured left arm Lab discussed Accuchecks daily 02/13/2015 Appointment: Neela Hyman WPtel: [address] [place] [address] 02/10 confrimed FOLLOW UP 02/13/2015 Patient Education: Patient Medication Summary Completed 02/13/2015 Patient Education: Patient Medication Summary Completed 02/09/2015 Visit Plan: discussed lab add fenofibrat e 134mg po daily recheck fasting lab in 3 months, CBC, CMP, Lipids, hgb AIC 11/07/2014 Appointment: Neela Hyman WPtel: [address] [place], [place] [phone] 11/04 appt confirmed cn FOLLOW UP 015 Patient Education: Patient Medication Summary Completed 11/07/2014 Patient Education: Patient Medication Summary Completed 11/03/2014 Visit Plan: Continue loratadine 10mg richard ly Notify if symptoms return 10/04/2014 Appointment: Neela Hyman WPtel: [address] [place], [place] [address] confirmed on 10/03 at 2:42pm FOLLOW UP 09/23 Patient Education: Patient Medication Summary Completed 10/04/2014 Appointment: Neela Hyman WPtel: [address] [place], [place] [phone] ACUTE ILLNESS 09/28/2014 Appointment: Loren Garza WPtel: [address] [place], [place] [phone] FOLLOW UP 09/22/2014 Patient Education: Patient Medication Summary Completed 09/22/2014 Appointment: Loren Garza WPtel: [address] [place], [place] [id number] ACUTE ILLNESS 09/21/2014 Patient Education: Patient Medication Summary Completed 09/21/2014 Patient Education: [facility] - Saving AutoInj - 18+ - Dynamic Portal ID Completed 09/21/2014 Visit Plan: Lab discussed Continue daily accuchecks Continue current meds 06/28/2014 Appointment: Neela Hyman WPtel: [address] [place], [place] [phone] FOLLOW UP 06/28/2014 Patient Education: Patient Medication Summary Completed 06/28/2014 Patient Education: Patient Medication Summary Completed 06/23/2014 Appointment: Sarah Sunshine WPtel: [address] [place], [place] [phone] ACUTE ILLNESS 06/10/2014 Patient Education: Patient Medication Summary Completed 06/10/2014 Patient Education: [facility] - Saving AutoInj - 18+ - Dynamic Portal ID Completed 06/10/2014 Visit Plan: Lab discussed Continue daily accuchecks Continue current meds 03/29/2014 Appointment: Neela Hyman WPtel: [address] [place], [place] [phone] FOLLOW UP 03/29/2014 Patient Education: Patient Medication Summary Completed 03/29/2014 Patient Education: Patient Medication Summary Completed 03/23/2014 Visit Plan: Lab discussed Continue curre nt meds and accuchecks See surgery for removal of hand lesion 11/30/2013 Appointment: Neela Hyman WPtel: [address] [place], [place] [phone] 11/29 no answer FOLLOW UP 11/30/2013 Patient Education: Patient Medication Summary Completed 11/30/2013 Visit Plan: Lab discussed Continue curre nt meds 08/03/2013 Appointment: Neela Hyman WPtel: [address] [place], [place] [phone] [place] FOLLOW UP 08/03/2013 Patient Education: Patient Medication Summary Completed 08/03/2013 Visit Plan: Lab Discussed Will continue current meds and pt will get back on diet/exercise Check lab in 4mos and fwup 04/06/2013 Appointment: Neela Hyman WPtel: [address] [place] [address] FOLLOW UP 04/06/2013 Patient Education: Patient Medication Summary Completed 04/06/2013 Visit Plan: Lab discussed Continue daily accuchecks 12/01/2012 Appointment: Neela Hyman WPtel: [address] [place] [address] 11/30 no answer FOLLOW UP 12/01/2012 Patient Education: Patient Medication Summary Completed 12/01/2012 Visit Plan: Continue current meds and da russell accuchecks Lab discussed 08/04/2012 Appointment: Neela Hyman WPtel: [address] [place] [address] FOLLOW UP 08/04/2012 Patient Education: Patient Medication Summary Completed 08/04/2012 Appointment: Neela Hyman WPtel: [address] [place] [address] UA 06/01/2012 Patient Education: Patient Medication Summary Completed 06/01/2012 Appointment: Janet Jean Baptiste WPtel: [address] [place] [address] FOLLOW UP 05/29/2012 Patient Education: Patient Medication Summary Completed 05/29/2012 Visit Plan: pt states Dr. Hyman told h is to increase his Prozac dose while she was talking to her at [facility]. Discussed that pt. should not increase or decrease dosage without 's knowledge. Pt. will seek hearing test here in town at the hearing aid place on [address]. Discussed that ear pain is likely caused by sinus pressure. Pt. will notify if no improvement. 05/25/2012 Appointment: Janet Jean Baptiste WPtel: [address] [place], [place] [phone] ACUTE ILLNESS 05/25/2012 Patient Education: Patient Medication Summary Completed 05/25/2012 Visit Plan: Continue current meds Contin ue daily accuchecks but alternate times Increase fish oil to 3gm daily 04/07/2012 Appointment: Neela Hyman WPtel: [address] [place] [address] 04/06 FOLLOW UP 04/07/2012 Patient Education: Patient Medication Summary Completed 04/07/2012 Appointment: Janet Jean Baptiste WPtel: [address] [place] [address] ACUTE ILLNESS 12/16/2011 Patient Education: Patient Medication Summary Completed 12/16/2011 Visit Plan: Increase 12/03/2011 Appointment: Neela Hyman WPtel: [address] [place] [address] FOLLOW UP 12/03/2011 Patient Education: Patient Medication Summary Completed 12/03/2011 Visit Plan: Continue current meds Contin ue accuchecks 08/29/2011 Appointment: Neela Hyman WPtel: [address] [place] [address] FOLLOW UP 08/29/2011 Patient Education: Patient Medication Summary Completed 08/29/2011 Visit Plan: Continue current meds except restart zocor 05/30/2011 Appointment: Neela Hyman WPtel: [address] [place] [address] FOLLOW UP 05/30/2011 Patient Education: Patient Medication Summary Completed 05/30/2011 Visit Plan: Continue tennis elbow strap May go back to weight-lifing--light weigts every other day 01/29/2011 Appointment: Neela Hyman WPtel: [address] [place] [address] [place] FOLLOW UP 01/29/2011 Patient Education: Patient Medication Summary Completed 01/29/2011 Visit Plan: Continue tennis elbow strap and anti-inflammatories 01/14/2011 Appointment: Neela Hyman WPtel: [address] [place], [place] [phone] FOLLOW UP 01/14/2011 Appointment: Janet Jean Baptiste WPtel: [address] [place], [place] [phone] NEW PATIENT 01/14/2011 Patient Education: Patient Medication Summary Completed 01/14/2011 Appointment: Neela Hyman WPtel: [address] [place], [place] [phone] FOLLOW UP 01/08/2011 Appointment: Neela Hyman WPtel: [address] [place], [place] [phone] FOLLOW UP 01/01/2011 Appointment: Neela Hyman WPtel: [address] [place] [address] UA 01/01/2011 Patient Education: Patient Medication Summary [...] given. 11/29/2010 Appointment: Janet Jean Baptiste WPtel: [address] [place] [address] ACUTE ILLNESS 11/29/2010 Patient Education: Patient Medication Summary Completed 11/29/2010 Visit Plan: Cont current meds Check CMP, Lipids, HbA1C 08/28/2010 Appointment: Neela Hyman WPtel: [address] [place], [place] [phone] FOLLOW UP 08/28/2010 Patient Education: Patient Medication Summary Completed 08/28/2010 Visit Plan: Cont current meds and accuch ecks Add Zocor 40mg q HS Check Lipids and HbA1C in 3mos 06/05/2010 Appointment: Neela Hyman WPtel: [address] [place], [place] [phone] FOLLOW UP 06/05/2010 Patient Education: Patient Medication Summary Completed 06/05/2010 Visit Plan: Check Lipids and HbA1C 02/05/2010 Appointment: Neela Hyman WPtel: [address] [place], [place] [phone] [place] FOLLOW UP 02/05/2010 Patient Education: Patient Medication Summary Completed 02/05/2010 Visit Plan: HbA1C in 3mos. Continue Accu checks BID alternating times. Check HbA1C, CMP, Lipids 10/09/2009 Appointment: Neela Hyman WPtel: [address] [place], [place] [phone] FOLLOW UP 10/09/2009 Patient Education: Patient Medication Summary Completed 10/09/2009 Visit Plan: Saline nasal flushes prn. Ty lenol/Motrin prn headache. Notify if persists/symptoms worsening. 08/22/2009 Appointment: Neela Hyman WPtel: [address] [place], [place] [phone] ACUTE ILLNESS 08/22/2009 Patient Education: Patient Medication Summary Completed 08/22/2009 Referral: Aubrey Rand WPtel: [address] [place], [place] [phone] [place] Office will verfy his insurance then they will contact patient Completed Referral: Shahbaz Brennan WPtel: [address] [facility] 201 [id number] [place] Referral Completed Referral: Ion Levi [address] [place] [address] C&D [id number] [place] Referral Appointment Requested Referral: Ion Levi [address] [facility] C&D [id number] [place] Referral Appointment Requested Instructions Comment . [...] with it . Obtain EMGs done at [place] from when fractured left arm Lab discussed [...] while she was talking to her at [facility]. Discussed that pt. should not increase or decrease dosage without Dr's knowledge. Pt. will seek hearing test here in town at the hearing aid place on [address]. Discussed that ear pain is likely caused [...]
--- OUTSIDE RECORDS SUMMARY | 2019-12-09 09:03 | XMS REPORT | CCD ---
Author Author Michael Hyman D.O. Organization [facility] Address [address] [place] [address] Phone Care Team Providers Care Product Managent Intern Name Role Phone Neela Hyman D.O., PP Unavailable CCM Unavailable Summary Purpose Interface Exchange Insurance Providers Payer name Policy type / Coverage type Covered democrat ID Effective Begin Date Effective End Date ABS FOR [employer] [id number] Unknown Family History Family History data not found Social History Social History Element Codes Description Effective Dates Marital status Unknown 05/30/[address]: 3811219 Former smoker quit 25 years ago 01/01/2011 [...] Fill Instructions Lasix 40 mg tablet RxNorm: 765766 1 Tablet(s) Oral QD 08/24/201910/25 Active duloxetine 60 mg capsule,delayed release RxNorm: 423747 TAKE ONE CAPSULE BY MOUTH EVERY DAY 08/16/2019 02/11/2020 Active metoprolol succinate ER 100 mg tablet,extended release 24 hr RxNorm: 265413 TAKE ONE TABLET BY MOUTH TWICE A DAY 08/16/2019 05/11/2020 Active potassium chloride ER 20 mEq tablet,extended release RxNorm: 633332 1 Tablet(s) Oral two times a day 07/22/2019 10/19/2019 Active metformin 500 mg tablet RxNorm: 509894 2 Tablet(s) Oral two afshan es a day 07/13/2019 09/11/2019 Active Singulair 10 mg tablet RxNorm: 320016 TAKE ONE TABLET BY MOUTH EVERY EVENING 07/06/2019 01/02/2020 Active Reselected prescribe r from [facility] to [facility] Keflex 500 mg capsule RxNorm: 450375 1 Capsule(s) Oral three ti mes a day 07/06/2019 07/13/2019 Inactive Singulair 10 mg tablet RxNorm: 938863 TAKE ONE TABLET BY MOUTH EVERY EVENING 06/22/2019 07/05/2019 Inactive Reselected prescribe r from PEG MAHER to [facility] Zocor 40 mg tablet RxNorm: 779652 TAKE ONE TABLET BY M OUTH EVERY NIGHT AT BEDTIME 06/21/2019 11/17/2019 Active MagOx 400 mg (241.3 mg magnesium) tablet RxNorm: 991537 1 Table t(s) Oral QD 06/21/2019 08/20/2019 Inactive diltiazem ER 360 mg capsule,24 hr,extended release RxNorm: 8 43276 TAKE ONE CAPSULE BY MOUTH AT BEDTIME -REPLACES 300MG 05/17/2019 11/12/2019 Active MagOx 400 mg (241.3 mg magnesium) tablet RxNorm: 317502 1 Table t(s) Oral QD 04/26/2019 06/20/2019 Inactive Lasix 40 mg tablet RxNorm: 094999 40 MG PO DAILY 04/12/2019 08/23/2019 Inactive Benicar 40 mg tablet RxNorm: 888433 1 Tablet(s) Oral QD 03/29/2019 Active potassium chloride ER 20 mEq tablet,extended release RxNorm: 891002 1 Tablet(s) Oral two times a day 03/29/2019 06/27/2019 Inactive potassium chloride ER 20 mEq tablet,extended release RxNorm: 727926 1 Tablet(s) Oral QD 03/29/2019 03/28/2019 Inactive Benicar 40 mg tablet RxNorm: 750755 1 Tablet(s) Oral QD 03/29/2019 Inactive MagOx 400 mg (241.3 mg magnesium) tablet RxNorm: 551676 1 Table t(s) Oral QD 03/29/2019 04/25/2019 Inactive metformin 500 mg tablet RxNorm: 518212 2 Tablet(s) Oral two afshan es a day 03/29/2019 07/12/2019 Inactive fenofibrate micronized 134 mg capsule RxNorm: 926846 TA KE ONE CAPSULE BY MOUTH EVERY DAY 03/05/2019 08/31/2019 Active duloxetine 60 mg capsule,delayed release RxNorm: 990601 1 Capsu le(s) PO QD 01/28/2019 07/26/2019 Inactive Trelegy Ellipta 100 mcg-62.5 mcg-25 mcg powder for inhalatio n RxNorm: 3138873 1 Puff(s) INH QD 01/06/2019 12/31/2019 Active 90 day supply prednisone 20 mg tablet RxNorm: 884765 1 Tablet(s) PO T ID for 3 days then 1 po BID for 3 days then 1 po daily for 3 days 01/05/2019 03/28/2019 Inacti ve metformin ER 1,000 mg tablet,extended release 24hr RxNorm: 1 987016 TAKE TWO TABLETS (1000MG) BY MOUTH TWO TIMES A DAY 12/22/2018 07/13/2019 Inacti ve Diflucan 100 mg tablet RxNorm: 169502 1 Tablet(s) PO QD 12/09/2018 Inactive prednisone 20 mg tablet RxNorm: 152019 1 Tablet(s) PO B ID for 4 days then 1 po daily for 4 days 11/24/2018 01/04/2019 Inactive albuterol sulfate 2.5 mg/3 mL (0.083 %) solution for n ebulization RxNorm: 432111 3 Milliliter(s) INH ONE VIAL VIA NEBULIZER EVERY 4 HOURS 019 07/21/2019 Inactive [AttnRPh: Saving apply/adjudicate RxGRP: SG20 RxBIN:[id number] RxPCN: ID#:[id number]] Trelegy Ellipta 100 mcg-62.5 mcg-25 mcg powder for inhalatio n RxNorm: 2272431 1 Puff(s) INH QD 10/27/2018 01/06/2019 Inactive 90 day supply diltiazem ER 360 mg capsule,24 hr,extended release RxNorm: 8 10996 TAKE ONE CAPSULE BY MOUTH AT BEDTIME -REPLACES 300MG 10/13/2018 04/10/2019 Inactive metoprolol succinate ER 100 mg tablet,extended release 24 hr RxNorm: 692937 TAKE ONE TABLET BY MOUTH TWICE A DAY 10/13/2018 07/09/2019 Inactive Trelegy Ellipta 100 mcg-62.5 mcg-25 mcg powder for inhalatio n RxNorm: 9221953 INHALE ONE PUFF ONCE DAILY 09/07/2018 10/27/2018 Inactive Levaquin 750 mg tablet RxNorm: 970751 1 Tablet(s) PO QD 09/07/2018 Inactive Levaquin 750 mg tablet RxNorm: 835154 1 Tablet(s) PO QD 09/07/2018 Inactive prednisone 20 mg tablet RxNorm: 533840 2 Tablet(s) PO QAM 08/13/2018 08/19/2018 Inactive Levaquin 500 mg tablet RxNorm: 020498 1 Tablet(s) PO QD 08/11/2018 Inactive fenofibrate micronized 134 mg capsule RxNorm: 502374 TA KE ONE CAPSULE BY MOUTH EVERY DAY 08/10/2018 02/05/2019 Inactive prednisone 20 mg tablet RxNorm: 200848 1 Tablet(s) PO BID 07/16/2018 07/20/2018 Inactive doxycycline hyclate 100 mg capsule RxNorm: 0723202 1 Capsule(s) PO BID 07/13/2018 07/22/2018 Inactive duloxetine 60 mg capsule,delayed release RxNorm: 560750 TAKE ONE CAPSULE BY MOUTH ONCE A DAY 07/08/2018 01/28/2019 Inactive Lasix 40 mg tablet RxNorm: 908602 1 TABLET(S) PO QAM 06/08/201809/05 Inactive potassium chloride ER 20 mEq tablet,extended release(p art/cryst) RxNorm: 1871658 1 TABLET(S) PO QD 06/08/2018 09/05/2018 Inactive metformin ER 1,000 mg tablet,extended release 24hr RxNorm: 1 614100 TAKE TWO TABLETS (1000MG) BY MOUTH TWO TIMES A DAY 06/01/2018 11/27/2018 Inacti ve Benicar HCT 40 mg-25 mg tablet RxNorm: 487278 TAKE ONE TABLET BY MOUTH ONCE DAILY 05/11/2018 03/28/2019 Inactive Zocor 40 mg tablet RxNorm: 238174 TAKE ONE TABLET BY M OUTH EVERY NIGHT AT BEDTIME 05/11/2018 06/20/2019 Inactive Trelegy Ellipta 100 mcg-62.5 mcg-25 mcg powder for inhalatio n RxNorm: 0727500 1 PUFF(S) INH QD 04/06/2018 07/04/2018 Inactive diltiazem ER 360 mg capsule,24 hr,extended release RxNorm: 8 13143 1 Capsule(s) PO QHS replaces 300mg dose 03/30/2018 09/25/2018 Inactive Trelegy Ellipta 100 mcg-62.5 mcg-25 mcg powder for inhalatio n RxNorm: 9935064 1 Puff(s) INH QD 02/24/2018 02/23/2018 Inactive Trelegy Ellipta 100 mcg-62.5 mcg-25 mcg powder for inhalatio n RxNorm: 6439521 1 Puff(s) INH QD 02/24/2018 02/23/2018 Inactive Trelegy Ellipta 100 mcg-62.5 mcg-25 mcg powder for inhalatio n RxNorm: 3881661 1 Puff(s) INH QD 02/24/2018 04/05/2018 Inactive Lasix 40 mg tablet RxNorm: 756662 1 Tablet(s) PO QAM 02/10/201803/11 Inactive potassium chloride ER 20 mEq tablet,extended release(p art/cryst) RxNorm: 4272778 1 Tablet(s) PO QD 02/10/2018 03/11/2018 Inactive fenofibrate micronized 134 mg capsule RxNorm: 541227 1 Capsule( s) PO QD 01/30/2018 07/28/2018 Inactive metoprolol succinate ER 100 mg tablet,extended release 24 hr RxNorm: 150525 TAKE ONE TABLET BY MOUTH TWICE A DAY 12/30/2017 09/25/2018 Inactive metformin ER 1,000 mg tablet,extended release 24hr RxNorm: 1 270395 1 Tablet(s) PO BID 11/17/2017 05/15/2018 Inactive [SAVINGS FOR NON -COVERED DRUGS -- BIN:056915, PCN: ASPROD1, Group: XXXXX, ID# [id number], Questions: . THIS IS NOT INSURANCE.] Benicar HCT 40 mg-25 mg tablet RxNorm: 829426 1 Tablet(s) PO QD 05/10/2018 Inactive [SAVINGS FOR NON-COVERED JESU GS -- BIN:977980, PCN: ASPROD1, Group: XXXXX, ID# [id number], Questions: . THIS IS NOT INSURANCE.] Bactroban 2 % topical cream RxNorm: 121140 Application TOP BID 10/2409/02/2018 Inactive clindamycin HCl 300 mg capsule RxNorm: 124850 2 Capsule(s) PO TID 0 11/05/2017 11/18/2017 Inactive duloxetine 60 mg capsule,delayed release RxNorm: 349473 Capsule(s) TAKE ONE CAPSULE BY MOUTH ONCE DAILY 09/24/2017 09/23/2017 Inactive triamcinolone acetonide 0.1 % topical ointment RxNorm: 8459523 1 TOP BID 09/09/2017 11/04/2017 Inactive Bactrim DS 800 mg-160 mg tablet RxNorm: 056127 1 Tablet(s) PO BID 0 08/07/2017 08/13/2017 Inactive metronidazole 500 mg tablet RxNorm: 631417 1 Tablet(s) PO BID 08/0708/13/2017 Inactive diltiazem ER 360 mg capsule,24 hr,extended release RxNorm: 8 23129 1 Capsule(s) PO QHS replaces 300mg dose 08/04/2017 01/30/2018 Inactive fenofibrate micronized 134 mg capsule RxNorm: 509067 1 Capsule( s) PO QD 07/21/2017 01/30/2018 Inactive Zocor 40 mg tablet RxNorm: 994852 1 Tablet(s) PO QHS 07/21/201705/10 Inactive GB duloxetine 60 mg capsule,delayed release RxNorm: 686012 Capsule(s) TAKE ONE CAPSULE BY MOUTH ONCE DAILY 06/24/2017 09/24/2017 Inactive Cleocin HCl 300 mg capsule RxNorm: 606728 2 Capsule(s) PO BID 06/0206/08/2017 Inactive acyclovir 800 mg tablet RxNorm: 810230 1 Tablet(s) PO 5x day 201706/08/2017 Inactive diltiazem ER 300 mg capsule,24 hr,extended release RxNorm: 8 44378 1 Capsule(s) PO QHS replaces 240mg dose 05/05/2017 08/03/2017 Inactive ipratropium-albuterol 0.5 mg-3 mg(2.5 mg base)/3 mL ne bulization soln RxNorm: 8970726 1 Unit Dose INH Q4H as needed 05/05/2017 01/04/2019 Inactive metformin ER 1,000 mg tablet,extended release 24hr RxNorm: 1 284732 1 Tablet(s) PO BID 04/28/2017 11/17/2017 Inactive [SAVINGS FOR NON -COVERED DRUGS -- BIN:012138, PCN: ASPROD1, Group: XXXXX, ID# XXXXXXX, Questions: . THIS IS NOT INSURANCE.] diltiazem ER (XR/XT) 240 mg capsule,extended release 2 4 hr, controlled RxNorm: 839107 TAKE ONE CAPSULE BY MOUTH EVERY DAY 04/15/2017 05/04/2017 Inact avani prednisone 20 mg tablet RxNorm: 015582 1 Tablet(s) PO QD 04/10/2017 1 06/14/2016 Inactive Breo Ellipta 200 mcg-25 mcg/dose powder for inhalation RxNor m: 7473493 1 Puff(s) INH QD 04/10/2017 02/09/2018 Inactive Breo Ellipta 200 mcg-25 mcg/dose powder for inhalation RxNor m: 0986977 1 Puff(s) INH QD 04/10/2017 04/09/2017 Inactive Levaquin 500 mg tablet RxNorm: 553885 1 Tablet(s) PO QD 04/10/2017 Inactive metoprolol succinate ER 100 mg tablet,extended release 24 hr RxNorm: 584528 TAKE ONE TABLET BY MOUTH TWICE A DAY 03/24/2017 12/18/2017 Inactive fenofibrate micronized 134 mg capsule RxNorm: 483933 1 Capsule( s) PO QD 01/16/2017 07/21/2017 Inactive Benicar HCT 40 mg-25 mg tablet RxNorm: 575830 1 Tablet(s) PO QD 11/17/2017 Inactive [SAVINGS FOR NON-COVERED JESU GS -- BIN:311413, PCN: ASPROD1, Group: XXXXX, ID# [id number], Questions: . THIS IS NOT INSURANCE.] metoprolol succinate ER 100 mg tablet,extended release 24 hr RxNorm: 882674 1 Tablet(s) PO BID 10/16/2016 03/23/2017 Inactive diltiazem ER (XR/XT) 240 mg capsule,extended release 2 4 hr, controlled RxNorm: 887527 1 Capsule(s) PO QD 10/16/2016 04/13/2017 Inactive [SAVINGS FOR NON- COVERED DRUGS -- BIN:930430, PCN: ASPROD1, Group: XXXXX, ID# [id number], Questions: . THIS IS NOT INSURANCE.] metformin ER 1,000 mg tablet,extended release 24hr RxNorm: 8 20270 1 Tablet(s) PO BID 10/16/2016 04/28/2017 Inactive [SAVINGS FOR NON -COVERED DRUGS -- BIN:229246, PCN: ASPROD1, Group: XXXXX, ID# [id number], Questions: . THIS IS NOT INSURANCE.] Zocor 40 mg tablet RxNorm: 492499 1 Tablet(s) PO QHS 10/16/201607/21 Inactive GB Singulair 10 mg tablet RxNorm: 973272 Tablet(s) 1 TABLET(S) PO QHS 08/27/2016 09/02/2018 Inactive prednisone 20 mg tablet RxNorm: 012817 1 Tablet(s) PO QD 08/27/2016 0 08/31/2016 Inactive ipratropium-albuterol 0.5 mg-3 mg(2.5 mg base)/3 mL ne bulization soln RxNorm: 6838350 1 Unit Dose INH Q4H as needed 08/27/2016 05/04/2017 Inactive metoprolol succinate ER 100 mg tablet,extended release 24 hr RxNorm: 364254 TAKE ONE TABLET BY MOUTH TWICE A DAY 08/05/2016 10/16/2016 Inactive duloxetine 60 mg capsule,delayed release RxNorm: 894963 TAKE ONE CAPSULE BY MOUTH ONCE DAILY 08/05/2016 06/24/2017 Inactive prednisone 20 mg tablet RxNorm: 265295 1 Tablet(s) PO QD 06/14/2016 0 06/18/2016 Inactive ipratropium-albuterol 0.5 mg-3 mg(2.5 mg base)/3 mL ne bulization soln RxNorm: 4735636 1 Unit Dose INH Q4H as needed 06/13/2016 08/26/2016 Inactive Levaquin 500 mg tablet RxNorm: 401693 1 Tablet(s) PO QD 06/13/2016 Inactive metoprolol succinate ER 100 mg tablet,extended release 24 hr RxNorm: 816520 1 Tablet(s) PO BID replaces 50mg dose 05/14/2016 07/12/2016 Inactive metoprolol succinate ER 50 mg tablet,extended release 24 hr RxNorm: 027198 1 Tablet(s) PO BID 04/29/2016 05/13/2016 Inactive prednisone 20 mg tablet RxNorm: 492330 1 Tablet(s) PO BID 04/22/2016 04/21/2016 Inactive prednisone 20 mg tablet RxNorm: 215946 1 Tablet(s) PO BID 04/22/2016 04/28/2016 Inactive Singulair 10 mg tablet RxNorm: 118759 Tablet(s) 1 TABLET(S) PO QHS 04/01/2016 08/26/2016 Inactive metoprolol succinate ER 25 mg tablet,extended release 24 hr RxNorm: 773920 1 Tablet(s) PO QHS for blood pressure 04/01/2016 05/13/2016 Inactive fenofibrate micronized 134 mg capsule RxNorm: 139275 TA KE ONE CAPSULE BY MOUTH DAILY 01/25/2016 01/16/2017 Inactive duloxetine 60 mg capsule,delayed release RxNorm: 335871 TAKE ONE CAPSULE BY MOUTH ONCE DAILY 01/25/2016 08/04/2016 Inactive Zocor 40 mg tablet RxNorm: 948851 TAKE ONE TABLET BY MOUTH AT B EDTIME 11/13/2015 10/16/2016 Inactive GB metformin ER 1,000 mg tablet,extended release 24hr RxNorm: 8 25234 1 Tablet(s) PO BID 10/26/2015 10/16/2016 Inactive [SAVINGS FOR NON -COVERED DRUGS -- BIN:093562, PCN: ASPROD1, Group: XXXXX, ID# [id number], Questions: . THIS IS NOT INSURANCE.] Benicar HCT 40 mg-25 mg tablet RxNorm: 488065 1 Tablet(s) PO QD 06/201511/11/2016 Inactive [SAVINGS FOR NON-COVERED JESU GS -- BIN:463842, PCN: ASPROD1, Group: XXXXX, ID# [id number], Questions: . THIS IS NOT INSURANCE.] diltiazem ER (XR/XT) 240 mg capsule,extended release,control led RxNorm: 366069 1 Capsule(s) PO QD 10/26/2015 10/15/2016 Inactive [SAVINGS FOR NO N-COVERED DRUGS -- BIN:839787, PCN: ASPROD1, Group: XXXXX, ID# [id number], Questions: . THIS IS NOT INSURANCE.] Singulair 10 mg tablet RxNorm: 766566 1 TABLET(S) PO QHS 09/18/2015 1 05/31/2015 Inactive Viagra 100 mg tablet RxNorm: 308346 1 Tablet(s) PO as needed 201511/23/2018 Inactive Singulair 10 mg tablet RxNorm: 802666 1 Tablet(s) PO QHS 08/16/2015 0 08/15/2015 Inactive Singulair 10 mg tablet RxNorm: 812446 1 Tablet(s) PO QHS 08/16/2015 0 09/14/2015 Inactive duloxetine 60 mg capsule,delayed release RxNorm: 164221 1 Capsule(s) PO QD replaces fluoxetine 08/14/2015 01/24/2016 Inactive ipratropium-albuterol 0.5 mg-3 mg(2.5 mg base)/3 mL ne bulization soln RxNorm: 3891277 1 Unit Dose INH Q4H as needed 08/14/2015 06/12/2016 Inactive prednisone 20 mg tablet RxNorm: 764847 Take 3 tabs PO o nce daily x 3 days, then 2 tabs PO once daily x 3 days and then 1 tab PO once daily x 3 days 08/09/2015 08/13/2015 Inactive Symbicort 160 mcg-4.5 mcg/actuation HFA aerosol inhaler RxNo rm: 6082272 2 Puff(s) INH BID 08/09/2015 08/13/2015 Inactive Zocor 40 mg tablet RxNorm: 426044 1 Tablet(s) PO QHS 05/23/201511/11 Inactive [AttnRPh: Saving apply/adjudicate RxGRP: SG20 RxBIN:[id number] RxPCN: ID#:[id number]] Benicar HCT 40 mg-25 mg tablet RxNorm: 582701 1 Tablet(s) PO QD 10/26/2015 Inactive [SAVINGS FOR NON-COVERED JESU GS -- BIN:547476, PCN: ASPROD1, Group: XXXXX, ID# [id number], Questions: . THIS IS NOT INSURANCE.] diltiazem ER (XR/XT) 240 mg capsule,extended release,control led RxNorm: 725490 1 Capsule(s) PO QD 04/24/2015 10/20/2015 Inactive [SAVINGS FOR NO N-COVERED DRUGS -- BIN:954978, PCN: ASPROD1, Group: XXXXX, ID# [id number], Questions: . THIS IS NOT INSURANCE.] fluoxetine 40 mg capsule RxNorm: 782761 1 Capsule(s) PO QD 04/24/20 15 08/13/2015 Inactive [SAVINGS FOR NON-COVERED JESU GS -- BIN:609153, PCN: ASPROD1, Group: XXXXX, ID# [id number], Questions: . THIS IS NOT INSURANCE.] Zocor 40 mg tablet RxNorm: 366673 TABLET(S) 1 TABLET(S) PO QHS 01/2505/23/2015 Inactive [AttnRPh: Saving apply/adjud icate RxGRP:SG20 RxBIN:[id number] RxPCN:HT ID#:[id number]] metformin ER 1,000 mg tablet,extended release 24hr RxNorm: 8 86343 1 TABLET(S) PO BID 01/29/2015 10/26/2015 Inactive [SAVINGS FOR NON -COVERED DRUGS -- BIN:051720, PCN: ASPROD1, Group: XXXXX, ID# XXXXXXX, Questions: . THIS IS NOT INSURANCE.] fenofibrate micronized 134 mg capsule RxNorm: 840038 1 CAPSULE( S) PO QD 01/23/2015 01/17/2016 Inactive fenofibrate micronized 134 mg capsule RxNorm: 888176 1 Capsule( s) PO QD 11/07/2014 01/22/2015 Inactive diltiazem ER (XR/XT) 240 mg capsule,extended release,control led RxNorm: 287184 1 Capsule(s) PO QD 10/24/2014 04/24/2015 Inactive [SAVINGS FOR NO N-COVERED DRUGS -- BIN:094125, PCN: ASPROD1, Group: XXXXX, ID# XXXXXXX, Questions: . THIS IS NOT INSURANCE.] Benicar HCT 40 mg-25 mg tablet RxNorm: 433957 1 Tablet(s) PO QD 05/201404/24/2015 Inactive [SAVINGS FOR NON-COVERED JESU GS -- BIN:429820, PCN: ASPROD1, Group: XXXXX, ID# XXXXXXX, Questions: . THIS IS NOT INSURANCE.] fluoxetine 40 mg capsule RxNorm: 085999 1 Capsule(s) PO QD 10/25/1904/24/2015 Inactive [SAVINGS FOR NON-COVERED JESU GS -- BIN:619813, PCN: ASPROD1, Group: XXXXX, ID# XXXXXXX, Questions: . THIS IS NOT INSURANCE.] azithromycin 500 mg tablet RxNorm: 986007 1 Tablet(s) PO QD 015 09/27/2014 Inactive [SAVINGS FOR NON-COVERED JESU GS -- BIN:350413, PCN: ASPROD1, Group: XXXXX, ID# XXXXXXX, Questions: . THIS IS NOT INSURANCE.] albuterol sulfate 2.5 mg/3 mL (0.083 %) solution for n ebulization RxNorm: 720000 3 Milliliter(s) INH ONE VIAL VIA NEBULIZER EVERY 4 HOURS 015 11/19/2014 Inactive [AttnRPh: Saving apply/adjudicate RxGRP: SG20 RxBIN:[id number] RxPCN: ID#:[id number]] Zocor 40 mg tablet RxNorm: 315444 TABLET(S) 1 TABLET(S ) PO QHS 1 TABLET(S) PO QHS 09/04/2014 02/21/2015 Inactive [AttnRPh: Saving apply/adjudicate RxGRP:SG20 RxBIN:[id number] RxPCN:HT ID#:[id number]] metformin ER 1,000 mg tablet,extended release 24hr RxNorm: 8 81290 1 Tablet(s) PO BID 08/04/2014 01/28/2015 Inactive [SAVINGS FOR NON -COVERED DRUGS -- BIN:665483, PCN: ASPROD1, Group: XXXXX, ID# XXXXXXX, Questions: . THIS IS NOT INSURANCE.] Bromfed DM 2 mg-30 mg-10 mg/5 mL syrup RxNorm: 3619567 1 -2 Teaspoon(s) PO Q4H as needed for cough 06/10/2014 06/19/2014 Inactive [SAVINGS FOR UN INSURED PATIENTS -- BIN:169085, PCN: ASPROD1, Group: AME08, ID# [id number], Process claim through [employer], for questions: . THIS IS NOT INSURANCE.] Augmentin 875 mg-125 mg tablet RxNorm: 506979 1 Tablet(s) PO Q12H 0 06/10/2014 06/19/2014 Inactive [AttnRPh: Saving apply/adjud icate RxGRP:SG20 RxBIN:[id number] RxPCN:HT ID#:[id number]] Zocor 40 mg tablet RxNorm: 009569 Tablet(s) 1 TABLET(S ) PO QHS 1 TABLET(S) PO QHS 05/25/2014 08/22/2014 Inactive [AttnRPh: Saving apply/adjudicate RxGRP:SG20 RxBIN:[id number] RxPCN:HT ID#:[id number]] fluoxetine 40 mg capsule RxNorm: 621264 1 Capsule(s) PO QD 04/29/20 14 10/24/2014 Inactive [AttnRPh: Saving apply/adjud icate RxGRP:SG20 RxBIN:[id number] RxPCN:HT ID#:[id number]] diltiazem ER (XR/XT) 240 mg capsule,extended release,control led RxNorm: 170960 1 Capsule(s) PO QD 04/29/2014 10/24/2014 Inactive [AttnRPh: Leonelin g apply/adjudicate RxGRP:SG20 RxBIN:[id number] RxPCN:HT ID#:[id number]] Benicar HCT 40 mg-25 mg tablet RxNorm: 399976 1 Tablet(s) PO QD 09/201310/24/2014 Inactive [AttnRPh: Saving apply/adjud icate RxGRP:SG20 RxBIN:[id number] RxPCN:HT ID#:[id number]] Zocor 40 mg tablet RxNorm: 449825 1 TABLET(S) PO QHS 1 TABLET(S ) PO QHS 03/07/2014 05/25/2014 Inactive [AttnRPh: Saving chelsie ly/adjudicate RxGRP:SG20 RxBIN:[id number] RxPCN:HT ID#:[id number]] Zocor 40 mg tablet RxNorm: 689450 1 Tablet(s) PO QHS 1 TABLET(S ) PO QHS 12/06/2013 03/05/2014 Inactive [AttnRPh: Saving chelsie ly/adjudicate RxGRP:SG20 RxBIN:[id number] RxPCN:HT ID#:[id number]] diltiazem ER (XR/XT) 240 mg capsule,extended release,control led RxNorm: 626494 1 Capsule(s) PO QD 10/25/2013 04/22/2014 Inactive [AttnRPh: Leonelin g apply/adjudicate RxGRP:SG20 RxBIN:[id number] RxPCN:HT ID#:[id number]] fluoxetine 40 mg capsule RxNorm: 327119 1 Capsule(s) PO QD 10/26/19 14 04/22/2014 Inactive [AttnRPh: Saving apply/adjud icate RxGRP:SG20 RxBIN:[id number] RxPCN: ID#:[id number]] Zocor 40 mg tablet RxNorm: 998208 1 Tablet(s) PO QHS 1 TABLET(S ) PO QHS 09/13/2013 12/06/2013 Inactive metformin ER 1,000 mg tablet,extended release 24hr RxNorm: 8 03666 Tablet(s) PO TAKE 1 TABLET BY MOUTH TWICE DAILY (REPLACES 500MG DOSE) 07/26/201303/2015 Inactive diltiazem ER (XR/XT) 240 mg capsule,extended release,control led RxNorm: 681518 1 Capsule(s) PO QD 05/03/2013 10/25/2013 Inactive fluoxetine 40 mg capsule RxNorm: 118948 1 Capsule(s) PO QD 05/03/20 13 10/25/2013 Inactive Benicar HCT 40 mg-25 mg tablet RxNorm: 354658 1 Tablet(s) PO QD 01/201304/29/2014 Inactive Zocor 40 mg tablet RxNorm: 751024 1 Tablet(s) PO QHS 12/10/201209/13 Inactive fluoxetine 40 mg capsule RxNorm: 300091 1 Capsule(s) PO QD 11/10/19 13 05/03/2013 Inactive diltiazem ER (XR/XT) 240 mg capsule,extended release,control led RxNorm: 744463 1 Capsule(s) PO QD 11/09/2012 05/03/2013 Inactive Benicar HCT 40 mg-25 mg tablet RxNorm: 894755 1 Tablet(s) PO QD 05/03/2013 Inactive metformin ER 1,000 mg tablet,extended release 24hr RxNorm: 8 59533 Tablet(s) PO TAKE 1 TABLET BY MOUTH TWICE DAILY (REPLACES 500MG DOSE) 08/05/201206/2013 Inactive Zocor 40 mg tablet RxNorm: 298074 1 Tablet(s) PO QHS 06/15/201212/09 Inactive fluoxetine 40 mg capsule RxNorm: 910477 1 Capsule(s) PO QD 05/15/20 12 11/08/2012 Inactive Neurontin 600 mg Tab RxNorm: 313653 1 Tablet(s) PO QHS 12/03/2011 Inactive metformin ER 1,000 mg tablet,extended release 24hr RxNorm: 8 12297 1 Tablet(s) PO BID replaces 500mg dose 12/03/2011 07/26/2013 Inactive Zocor 40 mg tablet RxNorm: 723882 1 Tablet(s) PO QHS 12/03/201106/15 Inactive fluoxetine 20 mg capsule RxNorm: 944554 1 Capsule(s) PO QD 12/03/19 12 05/24/2012 Inactive diltiazem ER (XR/XT) 240 mg capsule,extended release,control led RxNorm: 627416 1 Capsule(s) PO QD 11/15/2011 11/09/2012 Inactive Benicar HCT 40 mg-25 mg tablet RxNorm: 214096 1 Tablet(s) PO QD 02/16/2012 Inactive metformin ER 500 mg 24 hr Tab RxNorm: 162474 1 Tablet(s) PO BID 12/02/2011 Inactive Zocor 40 mg Tab RxNorm: 432637 1 Tablet(s) PO QHS 05/30/2011 11/25/19 12 Inactive fluoxetine 20 mg Cap RxNorm: 652027 1 Capsule(s) PO QD 05/28/2011 Inactive Neurontin 600 mg Tab RxNorm: 837563 1 Tablet(s) PO QHS 05/28/2011 Inactive Neurontin 600 mg Tab RxNorm: 856756 1 Tablet(s) PO QHS 02/22/201106/2011 Inactive Neurontin 600 mg Tab RxNorm: 071940 1 Tablet(s) PO QHS 01/14/2011 Inactive Neurontin 300 mg Cap RxNorm: 433111 1 Capsule(s) PO QHS 01/14/2011 Inactive Neurontin 600 mg Tab RxNorm: 216941 1 Tablet(s) PO QHS 01/14/2011 Inactive Medrol (Vipul) 4 mg Tabs in a Dose Pack RxNorm: 402593 Tablet(s) PO 0 01/02/2011 08/28/2011 Inactive as directed fluoxetine 20 mg Cap RxNorm: 897900 1 Capsule(s) PO QD 12/10/201006/2011 Inactive Zocor 40 mg Tab RxNorm: 642909 1 Tablet(s) PO QHS 12/03/2010 05/29/19 12 Inactive Neurontin 300 mg Cap RxNorm: 623706 1 Capsule(s) PO QHS 12/03/2010 Inactive Septra DS 800 mg-160 mg Tab RxNorm: 874233 1 Tablet(s) PO BID 11/2912/08/2010 Inactive diltiazem ER (XR/XT) 240 mg Continuous Release Cap RxNorm: 8 83432 1 Capsule(s) PO QD 11/20/2010 11/15/2011 Inactive Neurontin 300 mg Cap RxNorm: 552194 1 Capsule(s) PO QHS 11/06/2010 Inactive Neurontin 300 mg Cap RxNorm: 127478 1 Capsule(s) PO QHS 11/06/2010 Inactive Celebrex 200 mg Cap RxNorm: 938040 1 Capsule(s) PO BID 10/24/2010 Inactive fluoxetine 20 mg Cap RxNorm: 896045 1 Capsule(s) PO QD 06/07/201003/2011 Inactive Zocor 40 mg Tab RxNorm: 365164 1 Tablet(s) PO QHS 06/05/2010 12/02/19 11 Inactive Benicar HCT 40 mg-25 mg Tab RxNorm: 069447 1 Tablet(s) PO QD 200908/21/2011 Inactive Diltiazem 240 mg Continuous Release Cap RxNorm: 664250 1 Capsul e(s) PO QD 11/09/2009 09/02/2018 Inactive Avelox 400 mg Tab RxNorm: 374108 1 Tablet(s) PO QD 08/22/2009 010 Inactive ProAir HFA 90 mcg/actuation aerosol inhaler RxNorm: 834156 2 Puff(s) INH Q4H as needed No Start Date Active tramadol 50 mg tablet RxNorm: 414444 1-2 Tablet(s) PO TID as ne eded for pain No Start Date Active Tylenol Arthritis 650 mg Tab RxNorm: 5633727 2 Tablet(s) PO QD No Sta rt Date Active Celebrex 200 mg Cap RxNorm: 636892 1 Capsule(s) PO BID No Start Date 08/08/2015 Inactive Medrol (Vipul) 4 mg Tabs in a Dose Pack RxNorm: 883382 Tablet(s) PO N o Start Date 01/01/2011 Inactive as directed Promethazine-DM 6.25 mg-15 mg/5 mL Syrup RxNorm: 573037 1-2 Teaspoon(s) PO Q4H prn cough No Start Date 08/28/2011 Inactive Claritin 10 mg tablet RxNorm: 931654 1 Tablet(s) PO QD No Start Date 08/08/2015 Inactive Ihqxnwuxri-Pspwx-BYP-James-115HC Oral RxNorm: Oral No Start Da te 03/28/2019 Inactive Breo Ellipta 200 mcg-25 mcg/dose powder for inhalation RxNor m: 6768149 1 Puff(s) INH QD No Start Date 04/09/2017 Inactive metformin 500 mg Tab RxNorm: 753661 1 Tablet(s) PO QD No Start Date 0 08/17/2011 Inactive Diltiazem 240 mg Continuous Release Cap RxNorm: 554839 1 Capsul e(s) PO BID No Start Date 11/08/2009 Inactive fluoxetine 20 mg Cap RxNorm: 027282 1 Capsule(s) PO QD No Start Date 06/07/2010 Inactive Multivitamin & Mineral Formula Oral RxNorm: Oral No Start Da te 03/28/2019 Inactive Medrol (Vipul) 4 mg tablets in a dose pack RxNorm: 084564 Tablet(s) PO as directed No Start Date 05/28/2012 Inactive Fish Oil 1,000 mg Cap RxNorm: 1 Capsule(s) PO QD No Start Date 07/2018 Inactive Nexium 40 mg Cap RxNorm: 428678 1 Capsule(s) PO QD No Start Date 07/24 Inactive fluticasone 50 mcg/actuation nasal spray,suspension RxNorm: 5266129 2 [place] NASAL QD to each nostril No Start Date 08/03/2017 Inactive Viagra 100 mg tablet RxNorm: 726972 1 Tablet(s) PO as needed No Sta rt Date 09/17/2015 Inactive prednisone 20 mg tablet RxNorm: 433003 1 Tablet(s) PO B ID for 4 days then 1 po daily for 4 days No Start Date 11/23/2018 Inactive Benicar HCT 40 mg-25 mg Tab RxNorm: 934156 1 Tablet(s) PO QD No Sta rt [...] Date S ervice Location MICROALBUMIN URINE RANDOM 60405 MICRL MG/L 5.8 MG/L 03/2011 Unknown MICROALBUMIN URINE RANDOM 80063 XM.ALB/CRE 5.2 MG/GCR Unknown MICROALBUMIN URINE RANDOM 59130 CREAT MG/D 111 MG/DL 03/2011 Unknown MICROALBUMIN URINE RANDOM 86354 CRE/100 1.11 G/L 12/24 Unknown Procedures Procedure Codes Date FLU VACC PRSV FREE INC ANTIG 65 AND OLDER CPT-4: 57355 03/04/2019 ADMIN PNEUMOCOCCAL VACCINE CPT-4: G0009 03/04/2019 ADMIN INFLUENZA VIRUS VAC CPT-4: G0008 03/04/2019 FLU VACC PRSV FREE INC ANTIG 65 AND OLDER CPT-4: 14595 03/04/2019 PNEUMOCOCCAL VACC 23 RAYMON IM CPT-4: 50042 03/04/2019 THER/PROPH/DIAG INJ SC/IM CPT-4: 69231 08/11/2018 TRIAMCINOLONE ACET INJ NOS CPT-4: J3301 08/11/2018 DEXAMETHASONE SODIUM PHOS CPT-4: J1100 08/11/2018 THER/PROPH/DIAG INJ SC/IM CPT-4: 84561 07/16/2018 METHYLPREDNISOLONE INJECTION CPT-4: J2930 07/16/2018 INFLUENZA ASSAY W/OPTIC CPT-4: 19861 07/16/2018 THER/PROPH/DIAG INJ SC/IM CPT-4: 17612 07/13/2018 TRIAMCINOLONE ACET INJ NOS CPT-4: J3301 07/13/2018 THER/PROPH/DIAG INJ SC/IM CPT-4: 29813 05/04/2018 METHYLPREDNISOLONE INJECTION CPT-4: J2930 05/04/2018 FLU VACC PRSV FREE INC ANTIG 65 AND OLDER CPT-4: 18029 02/10/2018 PNEUMOCOCCAL VACC 13 RAYMON IM CPT-4: 15684 02/10/2018 ADMIN INFLUENZA VIRUS VAC CPT-4: G0008 02/10/2018 ADMIN PNEUMOCOCCAL VACCINE CPT-4: G0009 02/10/2018 THER/PROPH/DIAG INJ SC/IM CPT-4: 34086 09/09/2017 TRIAMCINOLONE ACET INJ NOS CPT-4: J3301 09/09/2017 ALBUTEROL NON-COMP UNIT CPT-4: J7613 04/10/2017 AIRWAY INHALATION TREATMENT CPT-4: 71893 04/10/2017 PRESCRIP TRANSMIT VIA ERX SY CPT-4: G8553 04/10/2017 FLU VACC PRSV FREE INC ANTIG 65 AND OLDER CPT-4: 64702 03/28/2017 ADMIN INFLUENZA VIRUS VAC CPT-4: G0008 03/28/2017 PRESCRIP TRANSMIT VIA ERX SY CPT-4: G8553 08/27/2016 PRESCRIP TRANSMIT VIA ERX SY CPT-4: G8553 06/14/2016 ALBUTEROL NON-COMP UNIT CPT-4: J7613 06/13/2016 AIRWAY INHALATION TREATMENT CPT-4: 87019 06/13/2016 PRESCRIP TRANSMIT VIA ERX SY CPT-4: [...] CPT-4: G8553 11/07/2014 THER/PROPH/DIAG INJ SC/IM CPT-4: 59095 09/21/2014 METHYLPREDNISOLONE INJECTION CPT-4: J2930 09/21/2014 PRESCRIP TRANSMIT VIA ERX SY CPT-4: G8553 09/21/2014 PRESCRIP TRANSMIT VIA ERX SY CPT-4: G8553 06/10/2014 URINALYSIS NONAUTO W/O SCOPE CPT-4: 63455 06/01/2012 PRESCRIP TRANSMIT VIA ERX SY CPT-4: G8553 05/25/2012 PRESCRIP TRANSMIT VIA ERX SY CPT-4: G8553 12/03/2011 CUR TOBACCO NON-USER CPT-4: G8457 05/30/2011 PRESCRIP TRANSMIT VIA ERX SY CPT-4: G8553 05/30/2011 URINALYSIS NONAUTO W/O SCOPE CPT-4: 32603 01/01/2011 URINE CULTURE/ COLONY COUNT CPT-4: 09195 01/01/2011 CUR TOBACCO NON-USER CPT-4: G8457 01/01/2011 [...] 1: 114/68 Code: 8480-6 BMI: 43.5 Code: 53853-3 Heart Rate 1: 52 bpm Height: 6'1" [...] 1: 136/72 Code: 8480-6 BMI: 42.7 Code: 36749-1 Heart Rate 1: 60 bpm Height: 6'1" Respiratory Rate: 22 bpm SpO2: 95% Tempera ture: 37.1 (C) / 98.7 (F) Weight: 324 lbs 02/10/2018 Blood Pressure 1: 146/78 Code: 8480-6 BMI: 42.4 Code: 72349-1 Heart Rate 1: 64 bpm Height: 6'1" Respiratory Rate: 22 bpm SpO2: 95% Tempera ture: 36.5 (C) / 97.7 (F) Weight: 321 lbs 11/05/2017 Blood Pressure 1: 128/84 Code: 8480-6 BMI: 42.9 Code: 10904-8 Heart Rate 1: 52 bpm Height: 6'1" Respiratory Rate: 22 bpm SpO2: 95% Tempera ture: 36.3 (C) / 97.3 (F) Weight: 325 lbs 09/09/2017 Blood Pressure 1: 162/90 Code: 8480-6 BMI: 42.5 Code: 09102-0 Heart Rate 1: 60 bpm Height: 6'1" Respiratory Rate: 24 bpm SpO2: 95% Tempera ture: 36.4 (C) / 97.6 (F) Weight: 322 lbs 08/07/2017 Blood Pressure 1: 152/90 Code: 8480-6 BMI: 42.2 Code: 05659-3 Heart Rate 1: 60 bpm Height: 6'1" Respiratory Rate: 26 bpm SpO2: 94% Tempera ture: 36.6 (C) / 97.8 (F) Weight: 320 lbs 08/04/2017 Blood Pressure 1: 150/86 Code: 8480-6 BMI: 42.7 Code: 24798-2 Heart Rate 1: 64 bpm Height: 6'1" Respiratory Rate: 20 bpm SpO2: 94% Tempera ture: 36.3 (C) / 97.3 (F) Weight: 324 lbs 06/04/2017 Blood Pressure 1: 164/90 Code: 8480-6 Heart Rate 1: 60 bpm Respiratory Rate: 24 bpm SpO2: 94% Temperature: 36.8 (C) / 98.3 (F) 06/02/2017 Blood Pressure 1: 162/80 Code: 8480-6 BMI: 42.9 Code: 49790-8 Heart Rate 1: 66 bpm Height: 6'1" Respiratory Rate: 22 bpm SpO2: 98% Tempera ture: 36.6 (C) / 97.8 (F) Weight: 325 lbs 05/05/2017 Blood Pressure 1: 164/94 Code: 8480-6 BMI: 41.4 Code: 86559-0 Heart Rate 1: 64 bpm Height: 6'1" Respiratory Rate: 22 bpm SpO2: 95% Tempera ture: 36.4 (C) / 97.5 (F) Weight: 314 lbs 04/10/2017 Blood Pressure 1: 136/78 Code: 8480-6 BMI: 42.0 Code: 81783-7 Heart Rate 1: 76 bpm Height: 6'1" Respiratory Rate: 24 bpm SpO2: 92% Tempera ture: 35.9 (C) / 96.7 (F) Weight: 318 lbs 02/03/2017 Blood Pressure 1: 134/82 Code: 8480-6 BMI: 41.7 Code: 87282-9 Heart Rate 1: 72 bpm Height: 6'1" Respiratory Rate: 24 bpm SpO2: 95% Tempera ture: 36.1 (C) / 97.0 (F) Weight: 316 lbs 10/30/2016 Blood Pressure 1: 126/74 Code: 8480-6 BMI: 41.3 Code: 73369-4 Heart Rate 1: 68 bpm Height: 6'1" Respiratory Rate: 20 bpm Temperature: 37 .1 (C) / 98.8 (F) Weight: 313 lbs 08/30/2016 Blood Pressure 1: 146/80 Code: 8480-6 BMI: 41.7 Code: 96948-6 Heart Rate 1: 64 bpm Height: 6'1" Respiratory Rate: 24 bpm SpO2: 94% Tempera ture: 36.6 (C) / 97.8 (F) Weight: 316 lbs 08/27/2016 Blood Pressure 1: 124 Code: 8480-6 Heart Rate 1: 66 bpm Height: 6'2" Respiratory Rate: 18 bpm SpO2: 94% Temperature: 36.6 (C) / 97.8 (F) Weight: 07/02/2016 Blood Pressure 1: 126 Code: 8480-6 BMI: 41.4 Code: 45326-3 Heart Rate 1: 68 bpm Height: 6'1" Respiratory Rate: 24 bpm SpO2: 94% Tempera ture: 36.6 (C) / 97.8 (F) Weight: 314 lbs 06/14/2016 Blood Pressure 1: 146/82 Code: 8480-6 Heart Rate 1: 80 bpm Respiratory Rate: 20 bpm SpO2: 95% Temperature: 37.3 (C) / 99.2 (F) 06/13/2016 Blood Pressure 1: 146/84 Code: 8480-6 BMI: 40.5 Code: 32572-5 Heart Rate 1: 66 bpm Height: 6'1" Respiratory Rate: 28 bpm SpO2: 93% Tempera ture: 35.8 (C) / 96.4 (F) Weight: 307 lbs 05/14/2016 Blood Pressure 1: 146/90 Code: 8480-6 BMI: 41.2 Code: 48323-5 Heart Rate 1: 68 bpm Height: 6'1" Respiratory Rate: 26 bpm Temperature: 36 .8 (C) / 98.2 (F) Weight: 312 lbs 04/29/2016 Blood Pressure 1: 152/90 Code: 8480-6 BMI: 41.0 Code: 45665-0 Heart Rate 1: 68 bpm Height: 6'1" Respiratory Rate: 26 bpm SpO2: 94% Tempera ture: 36.1 (C) / 96.9 (F) Weight: 311 lbs 04/22/2016 Blood Pressure 1: 152/94 Code: 8480-6 BMI: 40.9 Code: 55654-6 Heart Rate 1: 68 bpm Height: 6'1" Respiratory Rate: 24 bpm SpO2: 94% Tempera ture: 36.2 (C) / 97.2 (F) Weight: 310 lbs 04/01/2016 Blood Pressure 1: 156/78 Code: 8480-6 BMI: 40.6 Code: 83114-0 Heart Rate 1: 84 bpm Height: 6'1" Respiratory Rate: 22 bpm SpO2: 95% Tempera ture: 37.1 (C) / 98.7 (F) Weight: 308 lbs 11/30/2015 Blood Pressure 1: 142/80 Code: 8480-6 BMI: 40.5 Code: 30147-9 Heart Rate 1: 88 bpm Height: 6'1" Respiratory Rate: 22 bpm Temperature: 36 .2 (C) / 97.2 (F) Weight: 307 lbs 08/29/2015 Blood Pressure 1: 132/70 Code: 8480-6 BMI: 40.0 Code: 72795-2 Heart Rate 1: 76 bpm Height: 6'1" Respiratory Rate: 24 bpm SpO2: 96% Tempera ture: 36.7 (C) / 98.0 (F) Weight: 303 lbs 08/14/2015 Blood Pressure 1: 126/80 Code: 8480-6 BMI: 39.4 Code: 40950-3 Heart Rate 1: 92 bpm Height: 6'1" Respiratory Rate: 24 bpm SpO2: 94% Tempera ture: 37.8 (C) / 100.0 (F) Weight: 299 lbs 08/09/2015 Blood Pressure 1: 146/82 Code: 8480-6 Heart Rate 1: 82 bpm Respiratory Rate: 22 bpm SpO2: 93% Temperature: 35.9 (C) / 96.6 (F) We ight: 310 lbs 05/22/2015 Blood Pressure 1: 156/76 Code: 8480-6 BMI: 41.0 Code: 83883-8 Heart Rate 1: 100 bpm Height: 6'1" Respiratory Rate: 22 bpm Temperature: 37 .2 (C) / 98.9 (F) Weight: 311 lbs 02/13/2015 Blood Pressure 1: 166/90 Code: 8480-6 BMI: 41.2 Code: 72199-2 Heart Rate 1: 72 bpm Height: 6'1" Respiratory Rate: 24 bpm SpO2: 93% Tempera ture: 36.9 (C) / 98.5 (F) Weight: 312 lbs 11/07/2014 Blood Pressure 1: 134/70 Code: 8480-6 BMI: 40.5 Code: 90252-4 Heart Rate 1: 76 bpm Height: 6'1" Respiratory Rate: 24 bpm Temperature: 36 .9 (C) / 98.4 (F) Weight: 307 lbs 10/04/2014 Blood Pressure 1: 144/86 Code: 8480-6 BMI: 40.1 Code: 97707-7 Heart Rate 1: 76 bpm Height: 6'1" Respiratory Rate: 28 bpm Temperature: 36 .6 (C) / 97.9 (F) Weight: 304 lbs 09/22/2014 Blood Pressure 1: 142/80 Code: 8480-6 BMI: 40.0 Code: 28948-1 Heart Rate 1: 80 bpm Height: 6'1" Respiratory Rate: 22 bpm SpO2: 96% Tempera ture: 36.6 (C) / 97.8 (F) Weight: 303 lbs 09/21/2014 Blood Pressure 1: 160/66 Code: 8480-6 BMI: 40.0 Code: 45930-4 Heart Rate 1: 90 bpm Height: 6'1" Respiratory Rate: 26 bpm SpO2: 94% Tempera ture: 35.7 (C) / 96.2 (F) Weight: 303 lbs 06/28/2014 Blood Pressure 1: 132/80 Code: 8480-6 BMI: 41.0 Code: 16538-4 Heart Rate 1: 64 bpm Height: 6' Respiratory Rate: 20 bpm Temperature: 36 .7 (C) / 98.0 (F) Weight: 302 lbs 06/10/2014 Blood Pressure 1: 152/70 Code: 8480-6 BMI: 41.1 Code: 42768-6 Heart Rate 1: 76 bpm Height: 6' Respiratory Rate: 20 bpm Temperature: 36 .6 (C) / 97.8 (F) Weight: 303 lbs 03/29/2014 Blood Pressure 1: 132/78 Code: 8480-6 BMI: 40.6 Code: 63365-1 Heart Rate 1: 84 bpm Height: 6' Respiratory Rate: 22 bpm Temperature: 37 .1 (C) / 98.8 (F) Weight: 299 lbs 11/30/2013 Blood Pressure 1: 136/84 Code: 8480-6 BMI: 39.2 Code: 12921-6 Heart Rate 1: 76 bpm Height: 6' Respiratory Rate: 20 bpm Temperature: 36 .8 (C) / 98.2 (F) Weight: 289 lbs 08/03/2013 Blood Pressure 1: 144/80 Code: 8480-6 Heart Rate 1: 86 bpm Respiratory Rate: 20 bpm Temperature: 36.6 (C) / 97.8 (F) Weight: 296 lbs 04/06/2013 Blood Pressure 1: 142/90 Code: 8480-6 BMI: 40.3 Code: 16148-3 Heart Rate 1: 88 bpm Height: 6' Respiratory Rate: 20 bpm Temperature: 36 .6 (C) / 97.8 (F) Weight: 297 lbs 12/01/2012 Blood Pressure 1: 124/78 Code: 8480-6 BMI: 38.7 Code: 91002-9 Heart Rate 1: 76 bpm Height: 6' Respiratory Rate: 20 bpm Temperature: 37 .2 (C) / 98.9 (F) Weight: 285 lbs 08/04/2012 Blood Pressure 1: 128/80 Code: 8480-6 BMI: 38.2 Code: 84614-0 Heart Rate 1: 76 bpm Height: 6' Respiratory Rate: 20 bpm Temperature: 37 .0 (C) / 98.6 (F) Weight: 282 lbs 05/29/2012 Blood Pressure 1: 138/78 Code: 8480-6 BMI: 36.6 Code: 41429-5 Heart Rate 1: 66 bpm Height: 6' Temperature: 36.7 (C) / 98.1 (F) Weight: 270 lbs 05/25/2012 Blood Pressure 1: 128/72 Code: 8480-6 BMI: 39.9 Code: 36899-7 Heart Rate 1: 74 bpm Height: 6' Temperature: 36.1 (C) / 97.0 (F) Weight: 294 lbs 04/07/2012 Blood Pressure 1: 124/76 Code: 8480-6 BMI: 39.9 Code: 32232-3 Heart Rate 1: 72 bpm Height: 6' Respiratory Rate: 20 bpm Temperature: 36 .9 (C) / 98.5 (F) Weight: 294 lbs 12/16/2011 Blood Pressure 1: 128/80 Code: 8480-6 BMI: 40.8 Code: 80502-2 Heart Rate 1: 74 bpm Height: 6' Temperature: 36.6 (C) / 97.8 (F) Weight: 301 lbs 12/03/2011 Blood Pressure 1: 132/76 Code: 8480-6 BMI: 40.8 Code: 72824-6 Heart Rate 1: 68 bpm Height: 6' Respiratory Rate: 20 bpm Temperature: 36 .8 (C) / 98.2 (F) Weight: 301 lbs 08/29/2011 Blood Pressure 1: 140/68 Code: 8480-6 BMI: 40.8 Code: 71782-7 Heart Rate 1: 80 bpm Height: 6' Respiratory Rate: 20 bpm Temperature: 36 .4 (C) / 97.6 (F) Weight: 301 lbs 05/30/2011 Blood Pressure 1: 134/82 Code: 8480-6 BMI: 41.5 Code: 88504-5 Heart Rate 1: 76 bpm Height: 6' [...] 1: 126/72 Code: 8480-6 BMI: 41.2 Code: 27120-7 Heart Rate 1: 76 bpm Height: 6' [...] 1: 152/90 Code: 8480-6 BMI: 37.7 Code: 39598-9 Heart Rate 1: 92 bpm Height: 6'1" Temperature: 38.3 (C) / 101.0 (F) Weight : 286 lbs Functional Status No Functional Status data Reason For Visit Reason For Visit Effective Dates Notes follow up 08/30/2019 Discuss singulair th erapy follow up 08/10/2019 cellulitis 07/06/2019 follow up 05/10/2019 follow up 03/29/2019 [facility] fwup injection(s) 03/04/2019 follow up [...] dm Encounters Encounter Performer Location Codes Date ([id number]) OFFICE/OUTPATIENT VISIT EST Diagnosis: Chronic obstructive pulmonary disease, unspecified[ICD10: J44.9] Diagnosis: Essential (primary) hypertension[ICD10: I10] Diagnosis: Mixed hyperlipidemia[ICD10: E78.2] Diagnosis: Type 2 diabetes mellitus with hyperglycemia[ICD10: E11.65] Neela HYMAN DO [facility] CPT-4: 51485 08/30/2019 ([id number]) OFFICE/OUTPATIENT VISIT EST Diagnosis: Chronic obstructive pulmonary disease with (acute) exacerbation[ICD10: J44.1] Neela HYMAN DO [facility] CPT- 4: 03565 08/10/2019 ([id number]) OFFICE/OUTPATIENT VISIT EST Diagnosis: Sore on toe[ICD10: L98.9] Neela VASQUEZ DO [facility] CPT-4: 88302 07/06/2019 ([id number]) OFFICE/OUTPATIENT VISIT EST Diagnosis: Advanced chronic obstructive pulmonary disease[ICD10: J44.9] 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] Neela HYMAN DO [facility] CPT-4: 88266 05/10/2019 ([id number]) OFFICE/OUTPATIENT VISIT EST Diagnosis: Chronic obstructive pulmonary disease with (acute) exacerbation[ICD10: J44.1] Diagnosis: Hypokalemia[ICD10: E87.6] 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] Neela HYMAN DO [facility] CPT-4: 97211 03/29/2019 ([id number]) NURSE/OUTPATIENT VISIT EST Diagnosis: PNEUMOCOCCAL VACCINE[ICD10: Z23] Neela HYMAN DO [facility] CPT-4: 90201 03/04/2019 ([id number]) OFFICE/OUTPATIENT VISIT EST Diagnosis: Chronic obstructive pulmonary disease with (acute) exacerbation[ICD10: J44.1] Diagnosis: Other nonspecific abnormal finding of lung field[ICD10: R91.8] Neela HYMAN DO [facility] CPT-4: 77781 01/05/2019 ([id number]) OFFICE/OUTPATIENT VISIT EST Diagnosis: Solitary pulmonary nodule[ICD10: R91.1] 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] Diagnosis: Tinea corporis[ICD10: B35.4] Neela HYMAN [facility] CPT-4: 27418 12/09/2018 ([id number]) OFFICE/OUTPATIENT VISIT EST Diagnosis: COUGH[ICD10: R05] Diagnosis: Chronic obstructive pulmonary disease, unspecified[ICD10: J44.9] Diagnosis: Other disorders of lung[ICD10: J98.4] Diagnosis: Other nonspecific abnormal finding of lung field[ICD10: R91.8] Neela HYMAN [employer] [facility] CPT-4: 40633 11/24/2018 ([id number]) OFFICE/OUTPATIENT VISIT EST Diagnosis: Pneumonia, unspecified organism[ICD10: J18.9] Amita HYMAN [employer] [facility] CPT-4: 31225 09/16/2018 ([id number]) OFFICE/OUTPATIENT VISIT EST Diagnosis: Pneumonia, unspecified organism[ICD10: J18.9] Neela HYMAN [facility] CPT-4: 00088 09/03/2018 ([id number]) OFFICE/OUTPATIENT VISIT EST Diagnosis: Personal history of pneumonia (recurrent)[ICD10: Z87.01] Diagnosis: Cough[ICD10: R05] Diagnosis: Essential (primary) hypertension[ICD10: I10] Diagnosis: Type 2 diabetes mellitus with hyperglycemia[ICD10: E11.65] Amita MURILLO [employer] [facility] [facility] CPT-4: 95488 08/27/2018 OFFICE/OUTPATIENT VISIT EST Diagnosis: Pneumonia, unspecified organism[ICD10: J18.9] Diagnosis: Chronic obstructive pulmonary disease with (acute) exacerbation[ICD10: J44.1] Diagnosis: Other specified symptoms and signs involving the circulatory and respiratory systems[ICD10: R09.89] Diagnosis: Essential (primary) hypertension[ICD10: I10] [facility]mita [facility] CPT-4: 62246 08/13/2018 OFFICE/OUTPATIENT VISIT EST Diagnosis: Pneumonia, unspecified organism[ICD10: J18.9] Diagnosis: Other specified symptoms and signs involving the circulatory and respiratory systems[ICD10: R09.89] Amita Cunningham PS [facility] CPT-4: 82566 08/11/2018 ([id number]) OFFICE/OUTPATIENT VISIT EST Diagnosis: Dyspnea, unspecified[ICD10: R06.00] Diagnosis: Chronic obstructive pulmonary disease with (acute) exacerbation[ICD10: J44.1] Diagnosis: Pneumonia, unspecified organism[ICD10: J18.9] Amita MIRZALINE [employer] YENNI [facility] CPT-4: 84970 07/16/2018 ([id number]) OFFICE/OUTPATIENT VISIT EST Diagnosis: Acute bronchitis due to other specified organisms[ICD10: J20.8] Diagnosis: Cough[ICD10: R05] Amita MIRZALINE [facility]EN[facility] T-4: 69075 07/13/2018 ([id number]) OFFICE/OUTPATIENT VISIT EST Diagnosis: Essential (primary) hypertension[ICD10: I10] Diagnosis: Chronic obstructive pulmonary disease, unspecified[ICD10: J44.9] Diagnosis: Type 2 diabetes mellitus with hyperglycemia[ICD10: E11.65] Diagnosis: Mixed hyperlipidemia[ICD10: E78.2] Neela Sergemelany STERLING [employer] VICENTE [employer] [facility] CPT-4: 01669 06/03/2018 ([id number]) OFFICE/OUTPATIENT VISIT EST Diagnosis: Chronic obstructive pulmonary disease, unspecified[ICD10: J44.9] Gely MIRZALINE Octavio HYMAN [employer] [facility] CPT-4: 26382 05/04/2018 ([id number]) OFFICE/OUTPATIENT VISIT EST Diagnosis: Essential (primary) hypertension[ICD10: I10] Diagnosis: Localized edema[ICD10: R60.0] Neela Yenni NEELA [employer] YENNI [employer] [facility] CPT-4: 49067 03/03/2018 ([id number]) OFFICE/OUTPATIENT VISIT EST Diagnosis: Localized edema[ICD10: R60.0] Neela Sergegemmainna NEELA [employer]endez YENNI [employer] [facility] CPT-4: 96194 02/17/2018 ([id number]) OFFICE/OUTPATIENT VISIT EST Diagnosis: FLU VACCINE[ICD10: Z23] Diagnosis: PNEUMOCOCCAL VACCINE[ICD10: Z23] Diagnosis: Type 2 diabetes mellitus without complications[ICD10: E11.9] Diagnosis: Mixed hyperlipidemia[ICD10: E78.2] Diagnosis: Essential (primary) hypertension[ICD10: I10] Diagnosis: Localized edema[ICD10: R60.0] Diagnosis: Chronic obstructive pulmonary disease, unspecified[ICD10: J44.9] Neela HYMAN [facility] CPT-4: 43874 02/10/2018 ([id number]) OFFICE/OUTPATIENT VISIT EST Diagnosis: Type 2 diabetes mellitus with hyperglycemia[ICD10: E11.65] Diagnosis: Mixed hyperlipidemia[ICD10: E78.2] Diagnosis: Essential (primary) hypertension[ICD10: I10] Diagnosis: Chronic obstructive pulmonary disease, unspecified[ICD10: J44.9] Diagnosis: Cutaneous abscess of back [any part, except buttock][ICD10: L02.212] Neela HYMAN [facility] CPT-4: 26629 11/05/2017 ([id number]) OFFICE/OUTPATIENT VISIT EST Diagnosis: Allergic urticaria[ICD10: L50.0] Gely HYMAN DO [employer] CPT-4: 97396 09/09/2017 ([id number]) OFFICE/OUTPATIENT VISIT EST Diagnosis: Generalized enlarged lymph nodes[ICD10: R59.1] Diagnosis: Acute gastritis without bleeding[ICD10: K29.00] Gely HYMAN [facility] CPT-4: 39599 08/07/2017 ([id number]) OFFICE/OUTPATIENT VISIT EST Diagnosis: Type 2 diabetes mellitus without complications[ICD10: E11.9] Diagnosis: Mixed hyperlipidemia[ICD10: E78.2] Diagnosis: Essential (primary) hypertension[ICD10: I10] Neela HYMAN [facility] CPT-4: 16954 08/04/2017 ([id number]) OFFICE/OUTPATIENT VISIT EST Diagnosis: Zoster without complications[ICD10: B02.9] Diagnosis: Acute sialoadenitis[ICD10: K11.21] Gely STERLING [employer] HYMAN [facility] CPT-4: 88629 06/04/2017 OFFICE/OUTPATIENT VISIT EST Diagnosis: Zoster without complications[ICD10: B02.9] Diagnosis: Acute sialoadenitis[ICD10: K11.21] Gely STERLING [employer] HYMAN [facility] CPT-4: 86081 06/02/2017 ([id number]) OFFICE/OUTPATIENT VISIT EST Diagnosis: Type 2 diabetes mellitus without complications[ICD10: E11.9] Diagnosis: Mixed hyperlipidemia[ICD10: E78.2] Diagnosis: Essential (primary) hypertension[ICD10: I10] Diagnosis: Chronic obstructive pulmonary disease, unspecified[ICD10: J44.9] Neela HYMAN DO [facility] CPT-4: 05203 05/05/2017 OFFICE/OUTPATIENT VISIT EST Diagnosis: Chronic obstructive pulmonary disease with acute lower respiratory infection[ICD10: J44.0] Diagnosis: Impacted cerumen, bilateral[ICD10: H61.23] Gely HYMAN [employer] [facility] CPT-4: 82214 04/10/2017 ([id number]) OFFICE/OUTPATIENT VISIT EST Diagnosis: FLU VACCINE[ICD10: Z23] Neela BUI [employer] [facility] CPT-4: 90843 03/28/2017 ([id number]) OFFICE/OUTPATIENT VISIT EST Diagnosis: Type 2 diabetes mellitus without complications[ICD10: E11.9] Diagnosis: Mixed hyperlipidemia[ICD10: E78.2] Diagnosis: Essential (primary) hypertension[ICD10: I10] Diagnosis: Chronic obstructive pulmonary disease, unspecified[ICD10: J44.9] Neela HYMAN [employer] [facility] CPT-4: 69079 02/03/2017 ([id number]) OFFICE/OUTPATIENT VISIT EST Diagnosis: Type 2 diabetes mellitus with hyperglycemia[ICD10: E11.65] Diagnosis: Mixed hyperlipidemia[ICD10: E78.2] Diagnosis: Essential (primary) hypertension[ICD10: I10] Diagnosis: Chronic obstructive pulmonary disease, unspecified[ICD10: J44.9] Neela HYMAN [employer] [facility] CPT-4: 75747 10/30/2016 ([id number]) NO CHARGE Diagnosis: Acute bronchitis, unspecified[ICD10: J20.9] Sammi Najera NEELA Octavio HYMAN [employer] [facility] CPT-4: 09770 08/30/2016 ([id number]) OFFICE/OUTPATIENT VISIT EST Diagnosis: Acute bronchitis, unspecified[ICD10: J20.9] Diagnosis: Other seasonal allergic rhinitis[ICD10: J30.2] Sammi HYMAN DO [facility] CPT-4: 65682 08/27/2016 ([id number]) OFFICE/OUTPATIENT VISIT EST Diagnosis: Type 2 diabetes mellitus without complications[ICD10: E11.9] Diagnosis: Mixed hyperlipidemia[ICD10: E78.2] Diagnosis: Essential (primary) hypertension[ICD10: I10] Neela HYMAN DO [facility] CPT-4: 97929 07/02/2016 ([id number]) OFFICE/OUTPATIENT VISIT EST Diagnosis: Acute bronchitis, unspecified[ICD10: J20.9] Sammi HYMAN DO [facility] CPT-4: 69210 06/14/2016 ([id number]) OFFICE/OUTPATIENT VISIT EST Diagnosis: Acute bronchitis, unspecified[ICD10: J20.9] Sammi HYMAN DO [facility] CPT-4: 53040 06/13/2016 ([id number]) OFFICE/OUTPATIENT VISIT EST Diagnosis: Essential (primary) hypertension[ICD10: I10] Neela HYMAN DO [facility] CPT-4: 76988 05/14/2016 ([id number]) OFFICE/OUTPATIENT VISIT EST Diagnosis: Essential (primary) hypertension[ICD10: I10] Neela HYMAN DO [facility] CPT-4: 61130 04/29/2016 ([id number]) OFFICE/OUTPATIENT VISIT EST Diagnosis: Unspecified abdominal pain[ICD10: R10.9] Diagnosis: Left lower quadrant pain[ICD10: R10.32] Diagnosis: Left upper quadrant pain[ICD10: R10.12] Diagnosis: Essential (primary) hypertension[ICD10: I10] Neela HYMAN DO [facility] CPT-4: 10739 04/22/2016 ([id number]) OFFICE/OUTPATIENT VISIT EST Diagnosis: Type 2 diabetes mellitus without complications[ICD10: E11.9] Diagnosis: Mixed hyperlipidemia[ICD10: E78.2] Diagnosis: Essential (primary) hypertension[ICD10: I10] Neela HYMAN DO [facility] CPT-4: 09291 04/01/2016 ([id number]) OFFICE/OUTPATIENT VISIT EST Diagnosis: Type 2 diabetes mellitus with hyperglycemia[ICD10: E11.65] Diagnosis: Mixed hyperlipidemia[ICD10: E78.2] Diagnosis: Essential (primary) hypertension[ICD10: I10] Neela MURILLO Octavio HYMAN DO [facility] CPT-4: 26343 11/30/2015 ([id number]) OFFICE/OUTPATIENT VISIT EST Diagnosis: Type 2 diabetes mellitus with diabetic neuropathy, unspecified[ICD10: E11.40] Diagnosis: Essential (primary) hypertension[ICD10: I10] Diagnosis: Mixed hyperlipidemia[ICD10: E78.2] Neela FRIEND ASHER HYMAN DO [facility] CPT-4: 61835 08/29/2015 ([id number]) OFFICE/OUTPATIENT VISIT EST Diagnosis: COUGH[ICD10: R05] Diagnosis: Wheezing[ICD10: R06.2] Diagnosis: Type 2 diabetes mellitus with diabetic neuropathy, unspecified[ICD10: E11.40] Neela MURILLO JulissaMendez YENNI ARTHUR [facility] CPT-4: 98139 08/14/2015 ([id number]) OFFICE/OUTPATIENT VISIT EST Diagnosis: Other seasonal allergic rhinitis[ICD10: J30.2] Diagnosis: Dyspnea, unspecified[ICD10: R06.00] Diagnosis: Wheezing[ICD10: R06.2] Sammi MURILLO Octavio HYMAN DO [facility] CPT-4: 07718 08/09/2015 ([id number]) OFFICE/OUTPATIENT VISIT EST Diagnosis: Essential (primary) hypertension[ICD10: I10] Diagnosis: Type 2 diabetes mellitus with hyperglycemia[ICD10: E11.65] Diagnosis: Mixed hyperlipidemia[ICD10: E78.2] Neela STERLING Octavio HYMAN [employer] CPT-4: 22746 05/22/2015 ([id number]) OFFICE/OUTPATIENT VISIT EST Diagnosis: 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] Diagnosis: - I - HYPERTENSION[ICD9: 401.9] Diagnosis: - I - HYPERLIPIDEMIA NEC/NOS[ICD9: 272.4] Diagnosis: Left hand paresthesia[ICD9: 782.0] Neela STERLING Julissa. YENNI [employer] [facility] CPT-4: 73371 02/13/2015 ([id number]) OFFICE/OUTPATIENT VISIT EST Diagnosis: HYPERLIPIDEMIA NEC/NOS[ICD9: 272.4] Diagnosis: 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] Neela HYMAN [facility] CPT-4: 99271 11/07/2014 ([id number]) OFFICE/OUTPATIENT VISIT EST Diagnosis: ALLERGIC RHINITIS[ICD9: 477.9] Diagnosis: WHEEZING[ICD9: 786.07] Neela Duarte [facility] CPT-4: 21540 10/04/2014 ([id number]) OFFICE/OUTPATIENT VISIT EST Diagnosis: BRONCHITIS, ACUTE[ICD9: 466.0] Diagnosis: WHEEZING[ICD9: 786.07] Loren Duarte [facility] CPT-4: 53069 09/22/2014 ([id number]) OFFICE/OUTPATIENT VISIT EST Diagnosis: DYSPNEA[ICD9: 786.09] Diagnosis: WHEEZING[ICD9: 786.07] Diagnosis: Arrhythmia[ICD9: 427.9] Loren BUI [facility] CPT-4: 72700 09/21/2014 ([id number]) OFFICE/OUTPATIENT VISIT EST Diagnosis: 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, 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] Diagnosis: - I - HYPERLIPIDEMIA NEC/NOS[ICD9: 272.4] Diagnosis: - I - HYPERTENSION[ICD9: 401.9] Neela Sergegemmainna NEELA Octavio HYMAN [facility] CPT-4: 00844 06/28/2014 OFFICE/OUTPATIENT VISIT EST Diagnosis: SINUSITIS, ACUTE[ICD9: 461.9] Diagnosis: OTITIS MEDIA NOS[ICD9: 382.9] Sarah Sunshine [facility] CPT-[facility]: 92936 06/10/2014 ([id number]) OFFICE/OUTPATIENT VISIT EST Diagnosis: 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] Diagnosis: - I - HYPERLIPIDEMIA NEC/NOS[ICD9: 272.4] Diagnosis: - I - HYPERTENSION[ICD9: 401.9] Neela MURILLO Octavio HYMAN [facility] CPT-4: 04184 03/29/2014 ([id number]) OFFICE/OUTPATIENT VISIT EST Diagnosis: 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] Diagnosis: - I - HYPERTENSION[ICD9: 401.9] Diagnosis: - I - HYPERLIPIDEMIA NEC/NOS[ICD9: 272.4] Diagnosis: Hand lesion[ICD9: 709.9] Neela MADRIGAL [facility] CPT-4: 22909 11/30/2013 ([id number]) OFFICE/OUTPATIENT VISIT EST Diagnosis: 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] Diagnosis: HYPERLIPIDEMIA NEC/NOS[ICD9: 272.4] Diagnosis: HYPERTENSION[ICD9: 401.9] Neela VASQUEZ [employer] [facility] CPT-4: 43443 08/03/2013 ([id number]) OFFICE/OUTPATIENT VISIT EST Diagnosis: 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, 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] Diagnosis: HYPERTENSION[ICD9: 401.9] Diagnosis: HYPERLIPIDEMIA NEC/NOS[ICD9: 272.4] Neela GREGORIO SMendez ZHANG [employer] CPT-4: 13944 04/06/2013 ([id number]) OFFICE/OUTPATIENT VISIT EST Diagnosis: 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] Diagnosis: HYPERLIPIDEMIA NEC/NOS[ICD9: 272.4] Diagnosis: HYPERTENSION[ICD9: 401.9] Neela VASQUEZ [employer] [facility] CPT-4: 59445 12/01/2012 ([id number]) OFFICE/OUTPATIENT VISIT EST Diagnosis: 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] Diagnosis: HYPERTENSION[ICD9: 401.9] Diagnosis: HYPERLIPIDEMIA NEC/NOS[ICD9: 272.4] Neela ZHANG [employer] CPT-4: 98804 08/04/2012 ([id number]) OFFICE/OUTPATIENT VISIT EST Diagnosis: URINARY FREQUENCY[ICD9: 788.41] Neelasabina MIRZALINE Octavio HYMAN [facility] CPT-4: 85223 06/01/2012 OFFICE/OUTPATIENT VISIT EST Diagnosis: Agitation[ICD9: 307.9] Diagnosis: Frequent urination[ICD9: 788.41] Janet Jean Baptiste NEELA JulissaMendez [facility] CPT-4: 58835 05/29/2012 OFFICE/OUTPATIENT VISIT EST Diagnosis: SINUSITIS, ACUTE[ICD9: 461.9] Diagnosis: OTALGIA[ICD9: 388.70] Neela MURILLO JulissaMendez [facility] CPT-4: 54848 05/25/2012 OFFICE/OUTPATIENT VISIT EST Diagnosis: 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, 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] Diagnosis: HYPERTENSION[ICD9: 401.9] Diagnosis: HYPERLIPIDEMIA NEC/NOS[ICD9: 272.4] Neela GREGORIO SMendez [facility] CPT-4: 08223 04/07/2012 OFFICE/OUTPATIENT VISIT EST Diagnosis: FINGER INJURY[ICD9: 959.5] Janet Markel MURILLO JulissaMendez [facility] CPT-4: 61512 12/16/2011 ([id number]) OFFICE/OUTPATIENT VISIT EST Diagnosis: 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, 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] Diagnosis: HYPERTENSION[ICD9: 401.9] Diagnosis: HYPERLIPIDEMIA NEC/NOS[ICD9: 272.4] Neela GREGORIO S. SERG[facility]ER [facility] CPT-4: 98489 12/03/2011 ([id number]) OFFICE/OUTPATIENT VISIT EST Diagnosis: 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] Diagnosis: HYPERLIPIDEMIA NEC/NOS[ICD9: 272.4] Diagnosis: HYPERTENSION[ICD9: 401.9] Neela Cunningham SERGE NDER [facility] CPT-4: 73448 08/29/2011 OFFICE/OUTPATIENT VISIT EST Diagnosis: 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] Diagnosis: HYPERLIPIDEMIA NEC/NOS[ICD9: 272.4] Diagnosis: HYPERTENSION[ICD9: 401.9] Neela MURILLO SMendez SERGE NDER [facility] CPT-4: 64454 05/30/2011 OFFICE/OUTPATIENT VISIT EST Diagnosis: SKIN SENSATION DISTURB[ICD9: 782.0] Neela GREGORIO S. SERGENDER [facility] CPT-4: 04650 01/29/2011 OFFICE/OUTPATIENT VISIT EST Diagnosis: SKIN SENSATION DISTURB[ICD9: 782.0] Neela [facility]REGORIO [facility] CPT-4: 69411 01/14/2011 OFFICE/OUTPATIENT VISIT EST Neela [facility]WLER [facility] CPT- 4: 69251 01/01/2011 OFFICE/OUTPATIENT VISIT EST Neela [facility] CPT- 4: 67011 11/29/2010 ([id number]) OFFICE/OUTPATIENT VISIT EST Neela HORAN SMendez [facility] CPT-4: 44840 08/28/2010 ([id number]) OFFICE/OUTPATIENT VISIT, EST Neela WILDE SMendez [facility] CPT-4: 03930 06/05/2010 ([id number]) OFFICE/OUTPATIENT VISIT, EST Neela WILDE [facility] CPT-4: 65477 02/05/2010 ([id number]) OFFICE/OUTPATIENT VISIT, EST Neela WILDE SMendez [facility] CPT-4: 79778 10/09/2009 ([id number]) OFFICE/OUTPATIENT VISIT, EST Neela WILDE [facility] CPT-4: 72814 08/22/2009 Plan of Care Planned Activity Notes [...] : J44.1 08/10/2019 Appointment: Neela Hyman WPtel: [address] [place] [address] ACUTE ILLNESS 08/10/2019 Visit Diagnosis Plan: Sore on toe Discussion: Keep farhat an/dry Keflex Notify if worsens ICD-9 : 709.9 ICD-10 : L98.9 07/06/2019 Appointment: Neela Hyman WPtel: [address] [place] [address] ACUTE ILLNESS 07/06/2019 Patient Education: Makenzieir- OptimizeRClaudia Blue [phone] https://www.Socialcast/sampleOneMorePallet/resources/getResource/61/6qy118gt-65i4-7a29-69 Completed 07/06/2019 Visit Diagnosis Plan: Lymphoma involving lung Discussi on: Doing weekly lab and chemo ICD-9 : 202.82 ICD-10 : C85.99 05/10/2019 Visit Diagnosis Plan: Advanced chronic obstructive pul monary disease Discussion: Continue oxygen and pulmonary rehab Follow Up: 3 months ICD-9 : 496 ICD-10 : J44.9 05/10/2019 Appointment: Neela Hyman WPtel: [address] [place] [address] FOLLOW UP 05/10/2019 Appointment: Neela Hyman WPtel: [address] [place] [address] he called 04/14/19-- he was at physical [...] : C85.99 03/29/2019 Appointment: Neela Hyman WPtel: [address] [place], [place] [address] Hospital Follow Up 03/29/2019 Appointment: Neela Hyman WPtel: [address] [place], [place] [phone] [place] INJECTION 03/04/2019 Visit Diagnosis Plan: Chronic obstructiv e pulmonary disease with (acute) exacerbation Discussion: Increase SVNS with duoneb to QID Prednisone taper ICD-9 : 491.21 ICD-10 : J44.1 01/05/2019 Visit Diagnosis Plan: Other nonspecific abnormal findi ng of lung field Discussion: Referral to pulmonology--will likely need bronchoscopy--path results discussed ICD-9 : 786.6 ICD-10 : R91.8 01/05/2019 Appointment: Neela Hyman WPtel: [address] [place] [address] FOLLOW UP 01/05/2019 Patient Education: prednisone- OptimizeRX Coupon [phone] https://www.Socialcast/sampleOneMorePallet/resources/getResource/61/k5dl2634-940d-1r38-sw Completed 01/05/2019 Care Plan: Referral Order SNOMED-CT : 30 [id number] Pending 01/05/2019 Appointment: Neela Hyman WPtel: [address] [place], [place] [phone] CANCELED 12/21/2018 Visit Diagnosis Plan: Solitary pulmonary nodule Discus esmer: CT guided needle biopsy of RUL lung mass ICD-9 : 793.11 ICD-10 : R91.1 12/09/2018 Visit Diagnosis Plan: Tinea corporis Discussion: Diflu can--hold simvastatin and fenofibrate while taking ICD-9 : 110.5 ICD-10 : B35.4 12/09/2018 Appointment: Neela Hyman WPtel: [address] [place] [address] [place] FOLLOW UP 12/09/2018 Appointment: Gely Harp [address] NO SHOW 12/01/2018 Visit Diagnosis Plan: [...] : J98.4 11/24/2018 Appointment: Neela Hyman WPtel: [address] [place] [address] FOLLOW UP 11/24/2018 Care Plan: PET IMAGE FULL BODY LOINC : 4 2711-2 Pending 11/24/2018 Appointment: Neela Hyman WPtel: [address] [place] [address] [place] Consult 09/21/2018 Visit Diagnosis Plan: Pneumonia, unspecified organism Discussion: Patient clinically improved. Recent CT scan from 09/07 showed unresolved right upper lobe pneumonia. Finished another 7 days of levaquin. Will repeat CBC early next week. Order sent with patient to get done at [facility]. FU CT recommended in 4 weeks. Patient states understanding. ICD-9 : 486 ICD-10 : J18.9 09/16/2018 Appointment: Amita Henderson [address] [place] [address] [place] FOLLOW UP 09/16/2018 Visit Diagnosis Plan: Pneumonia, unspecified organism Discussion: Clinically patient feels and looks much better but need CT scan of chest due to ongoing round pneumonia in association with his known lymphoma ICD-9 : 486 ICD-10 : J18.9 09/03/2018 Appointment: Neela Hyman WPtel: [address] [place], [place] [address] [place] FOLLOW UP 09/03/2018 Care Plan: CT [...] ICD-10 : I10 08/27/2018 Appointment: Amita Henderson [id number] 08/27/2018 Visit Diagnosis Plan: Chronic [...] ICD-10 : R09.89 08/13/2018 Appointment: Amita Henderson [address] [place], [place] [address] [facility] FOLLOW UP 08/13/2018 Appointment: Amita Henderson [address] [place], [place] [address] CANCELED 08/13/2018 Patient Education: prednisone- OptimizeRX Coupon [phone] https://www.Socialcast/sampleOneMorePallet/resources/getResource/61/xo45hg6i-7h86-7mo2-5b Completed 08/13/2018 Visit Diagnosis Plan: Other specified [...] ICD-10 : J18.9 08/11/2018 Appointment: Amita Henderson [address] [place], [place] [phone] ACUTE ILLNESS 08/11/2018 Care Plan: CHEST X-RAY 2VW FRONTAL&LATL LOINC : 86587-7 Pending 07/20/2018 Visit Diagnosis Plan: Dyspnea, unspecified Discussion: CXR- to be completed at the hospital. Will call with results and any adjustments in plan. Solumedrol 125 administered in clinic Prednisone 20 mg BID x 5 days- start tomorrow ICD-9 : 786.09 ICD-10 : R06.00 07/16/2018 Appointment: Amita Henderson [address] [place], [place] [address] ACUTE ILLNESS 07/16/2018 Patient Education: prednisone- OptimizeRX Coupon [phone] https://www.Socialcast/samplemd/resources/getResource/61/19r3q8oh-ua82-4vf8-g5 Completed 07/16/2018 Visit Diagnosis Plan: Acute bronchitis due to other sp ecified organisms Discussion: Kenalog 40 mg IM administered in clinic. Doxycycline called into [facility]. Take as directed. Continue nebulizer and Trelegy. Follow up if symptoms are not improving with treatment regimen. Patient states understanding of all instruction. ICD-9 : 466.0 ICD-10 : J20.8 07/13/2018 Appointment: Amita Henderson [id number] ACUTE ILLNESS 07/13/2018 Patient Education: doxycycline hyclate- OptimizeRX Cou saritha [id number] https://www.Librato.Loffles/samplemd/resources/getResource/61/4v293j99-7x3v-5849-7j Completed 07/13/2018 Care Plan: [place] : [address]-8 Pending 07/13/2018 Care Plan: CBC Pending 07/13/2018 Care Plan: A1C HPLC LOINC : 91891-4 Pending 07/13/2018 Visit Diagnosis Plan: Mixed hyperlipidemia [...] I10 06/03/2018 Appointment: Neela Hyman WPtel: [phone] [id number] FOLLOW UP 06/03/2018 Visit Diagnosis Plan: Chronic [...] ICD-10 : J44.9 05/04/2018 Appointment: Gely Harp [address] [place] [address] ACUTE ILLNESS 05/04/2018 Visit Diagnosis Plan: Localized edema Discussion: Cont inue lasix and potassium at every other day Recheck lab and fwup in 3mos Follow Up: 3 months ICD-9 : 782.3 ICD-10 : R60.0 03/03/2018 Appointment: Neela Hyman WPtel: [address] [place] [address] FOLLOW UP 03/03/2018 Patient Education: Patient Medication Summary Completed 03/03/2018 Visit Diagnosis Plan: Localized edema Discussion: Finch ge lasix and potassium to every other day Check Chem 7 in 2 weeks and fwup ICD-9 : 782.3 ICD-10 : R60.0 02/17/2018 Appointment: Neela Hyman WPtel: [address] [place] [address] FOLLOW UP 02/17/2018 Patient Education: Patient Medication [...] : E78.2 02/10/2018 Appointment: Neela Hyman WPtel: [address] [place] [address] [place] FOLLOW UP 02/10/2018 Patient Education: Patient [...] I10 11/05/2017 Appointment: Ne[facility]Ptel[facility] [address] [facility] [facility] 11/05/2017 Patient Education: Patient Medication Summary Completed 11/05/2017 Patient Education: Patient Medication Summary Completed 11/03/2017 Care Plan: [place] : [address]-6 Pending 11/03/2017 Care Plan: LIPID PANEL LOINC : 13367-1 Pending 11/03/2017 Care Plan: CBC Pending 11/03/2017 Care Plan: A1C HPLC LOINC : 91230-6 Pending 11/03/2017 Visit Diagnosis Plan: Allergic urticaria [...] : L50.0 09/09/2017 Appointment: [facility] [facility] 09/09/2017 Patient Education: Patient Medication [...] ICD-10 : K29.00 08/07/2017 Appointment: Gely Harp [address] [place] [address] Follow Up 08/07/2017 Patient Education: Patient Medication Summary Completed 08/07/2017 Visit Diagnosis Plan: Essential (primary) hypertension Discussion: Increase Cardizem CD to 360mg daily ICD-9 : 401.9 ICD-10 : I10 08/04/2017 Visit Diagnosis Plan: Type 2 diabetes mellitus without complications Discussion: Accuchecks daily Lab discussed Continue current meds ICD-9 : 250.00 ICD-10 : E11.9 08/04/2017 Appointment: Neela Hyman WPtel: [phone] [id number] FOLLOW UP 08/04/2017 Patient Education: Patient Medication Summary Completed 08/04/2017 Patient Education: Patient Medication Summary Completed 07/31/2017 Care Plan: [place] : [address]-9 Pending 07/31/2017 Care Plan: ASSAY THYROID STIM HORMONE Pen ding 07/31/2017 Care Plan: LIPID PANEL LOINC : 30462-9 Pending 07/31/2017 Care Plan: CBC Pending 07/31/2017 Care Plan: A1C HPLC LOINC : 09331-9 Pending 07/31/2017 Patient Education: Patient Medication Summary Completed 06/19/2017 Patient Education: Patient Medication Summary Completed 06/09/2017 Care Plan: CT SOFT TISSUE NECK W/DYE [place] MD : 09035-2 Pending 06/09/2017 Visit Diagnosis Plan: Zoster without [...] ICD-10 : K11.21 06/04/2017 Appointment: Gely Harp [address] [place] [address] ACUTE ILLNESS 06/04/2017 Patient Education: Patient Medication [...] ICD-10 : B02.9 06/02/2017 Appointment: Gely Harp [address] [place], [place] [phone] ACUTE ILLNESS 06/02/2017 Patient Education: Patient Medication [...] : E78.2 05/05/2017 Appointment: Neela Hyman WPtel: [facility] [place] [phone] FOLLOW UP 05/05/2017 Patient Education: Patient Medication Summary Completed 05/05/2017 Patient Education: Patient Medication Summary Completed 05/01/2017 Care Plan: A1C HPLC [facility] : 61388-1 Pending 05/01/2017 Visit Diagnosis Plan: Chronic obstructiv [...] ICD-10 : H61.23 04/10/2017 Appointment: Gely Harp [address] [place] [address] ACUTE ILLNESS 04/10/2017 Patient Education: Patient Medication Summary Completed 04/10/2017 Appointment: Neela Hyman WPtel: [id number] INJECTION 03/28/2017 Patient Education: Patient Medication Summary [...] ICD-10 : I10 02/03/2017 Appointment: Neela Hyman: [facility] [place] FOLLOW UP 02/03/2017 Patient Education: Patient Medication Summary Completed 02/03/2017 Patient Education: Patient Medication Summary Completed 01/30/2017 Care Plan: [place] : [address]-3 Pending 01/30/2017 Care Plan: LIPID PANEL LOINC : 50455-8 Pending 01/30/2017 Care Plan: CBC Pending 01/30/2017 Care Plan: A1C HPLC LOINC : 99167-5 Pending 01/30/2017 Care Plan: ASSAY OF PSA [...] : J44.9 10/30/2016 Appointment: Neela Hyman WPtel: [address] [place], [place] [phone] [place] 6/6 lm ~sl 6/ confirmed~sl FOLLOW UP 11/2016 Patient Education: Patient Medication Summary Completed 10/30/2016 Patient Education: Patient Medication Summary Completed 10/24/2016 Visit Diagnosis Plan: Acute bronchitis, unspecified Di scussion: Patient sounds and looks much improved Continue current regimen Keep appt with Dr Levi for Friday Follow up PRN ICD-9 : 466.0 ICD-10 : J20.9 08/30/2016 Appointment: Sammi Najera [address] [place], [place] [address] [place] 4/6 rang and rang rang 4/7 [...] : J20.9 08/27/2016 Appointment: Sammi Najera [address] [facility] FOLLOW UP 08/27/2016 Patient Education: Patient Medication Summary Completed 08/27/2016 Care Plan: Referral Order SNOMED-CT : 30 [id number] Pending 08/27/2016 Visit Diagnosis Plan: Type 2 [...] : E78.2 07/02/2016 Appointment: Neela Hyman WPtel: [address] [place], [place] [phone] 07/01 rang and rang`sl FOLLOW UP 7 Patient Education: Patient Medication Summary Completed 07/02/2016 Patient Education: Patient Medication Summary Completed 06/27/2016 Care Plan: LIPID PANEL LOINC : 60273-2 Pending 06/27/2016 Care Plan: [place] : 113[address]-7 Pending 06/27/2016 Care Plan: A1C HPLC LOINC : 10359-3 Pending 06/27/2016 Visit Diagnosis Plan: Acute bronchitis, [...] ICD-10 : J20.9 06/14/2016 Appointment: Sammi Najera [address] [place], [place] [phone] FOLLOW UP 06/14/2016 Patient Education: Patient Medication [...] ICD-10 : J20.9 06/13/2016 Appointment: Sammi Najera [address] [place] [address] ACUTE ILLNESS 06/13/2016 Patient Education: Patient Medication Summary Completed 06/13/2016 Care Plan: CHEST X-RAY 2VW FRONTAL&LATL LOINC : 79640-2 Pending 06/13/2016 Visit Plan: Increase metoprolol to 100mg po BID BP readings and BP check in 1month 05/14/2016 Appointment: Neela Hyman WPtel: [address] [place] [address] 05/13 rang and rang`sl FOLLOW UP 6 Patient Education: Patient Medication Summary Completed 05/14/2016 Visit Plan: Increase metoprolol to 50mg BID BP check in 1 week f/u BP appt 2 weeks consider musculoskeletal if pain returns 04/29/2016 Appointment: Neela Hyman WPtel: [address] [place], [place] [address] 04/25 confimred~sl FOLLOW UP 04/29/2016 Patient Education: Patient Medication Summary Completed 04/29/2016 Visit Plan: Stat CT scan of abdomen/pelv is to look for stone Hydrate and use tramadol prn Increase metoprolol to 25mg po BID Will see urology pending CT scan results 04/22/2016 Appointment: Neela Hyman WPtel: [address] [place], [place] [address] 04/17 confirmed-sp ACUTE ILLNESS 04/22/2016 Patient Education: [...] flu shot 04/01/2016 Appointment: Neela Hyman WPtel: [address] [place] [address] FOLLOW UP 04/01/2016 Patient Education: Patient Medication Summary Completed 04/01/2016 Patient Education: [facility] - Saving AutoInj - 18-64 - Dynamic Heber l ID Completed 04/01/2016 Patient Education: Patient Medication Summary Completed 03/28/2016 Care Plan: A1C HPLC LOINC : 12514-8 Pending 03/28/2016 Care Plan: [place] : [address]-6 Pending 03/28/2016 Visit Plan: Lab discussed Continue curre nt meds Accuchecks daily 11/30/2015 Appointment: Neela Hyman WPtel: [address] [place], [place] [phone] / confirmed~sl FOLLOW UP 11/30/2015 Patient Education: Patient Medication Summary Completed 11/30/2015 Appointment: Neela Hyman WPtel: [address] [place], [place] [phone] RESCHEDULED 11/28/2015 Patient Education: Patient Medication Summary Completed 11/23/2015 Care Plan: [place] : [address]-8 Pending 11/23/2015 Care Plan: LIPID PANEL LOINC : 73485-2 Pending 11/23/2015 Care Plan: CBC Pending 11/23/2015 Care Plan: A1C HPLC LOINC : 77528-9 Pending 11/23/2015 Visit Plan: Lab discussed Accuchecks richard ly Continue current meds Cymbalta helping with feet and mood 08/29/2015 Appointment: Neela Hyman WPtel: [phone] [id number] FOLLOW UP 08/29/2015 Patient Education: Patient Medication Summary Completed 08/29/2015 Visit Plan: Check CXR Stop all steroids and steroid inhalers Use SVN with but change to duoneb Add singulair for allergy etiology Change fluoxetine to cymbalta 60mg daily Viagra samples given to try prn--warned of no nitrates 08/14/2015 Appointment: Neela Hyman WPtel: [phone] [id number] lm to reschedule ~sl 07/27 lm ~sl 08/09 busy 08/10 fer rosales-sp Annual Well Visit 08/14/2015 Patient Education: Patient Medication Summary Completed 08/14/2015 Care Plan: CHEST X-RAY 2VW FRONTAL&LATL LOINC : 75578-6 Ordered 08/14/2015 Visit Plan: Decadron 8mg given [...] improving as expected 08/09/2015 Appointment: Sammi Najera [address] [facility] ER Follow UP 08/09/2015 Patient Education: [...] with it 05/22/2015 Appointment: Neela Hyman WPtel: [address] [place], [place] [address] 05/17 confirmed~sl FOLLOW UP 05/22/2015 Patient Education: Patient Medication Summary Completed 05/22/2015 Patient Education: Patient Medication Summary Completed 05/15/2015 Visit Plan: Obtain EMGs done at [facility] from when fractured left arm Lab discussed Accuchecks daily 02/13/2015 Appointment: Neela Hyman WPtel: [address] [place] [address] 02/10 confrimed FOLLOW UP 02/13/2015 Patient Education: Patient Medication Summary Completed 02/13/2015 Patient Education: Patient Medication Summary Completed 02/09/2015 Visit Plan: discussed lab add fenofibrat e 134mg po daily recheck fasting lab in 3 months, CBC, CMP, Lipids, hgb AIC 11/07/2014 Appointment: Neela Hyman WPtel: [address] [place], [place] [phone] 11/04 appt confirmed cn FOLLOW UP 015 Patient Education: Patient Medication Summary Completed 11/07/2014 Patient Education: Patient Medication Summary Completed 11/03/2014 Visit Plan: Continue loratadine 10mg richard ly Notify if symptoms return 10/04/2014 Appointment: Neela Hyman WPtel: [address] [place] [address] confirmed on 10/03 at 2:42pm FOLLOW UP 09/23 Patient Education: Patient Medication Summary Completed 10/04/2014 Appointment: Neela Hyman WPtel: [address] [place], [place] [phone] ACUTE ILLNESS 09/28/2014 Appointment: Loren Garza WPtel: [address] [place], [place] [phone] FOLLOW UP 09/22/2014 Patient Education: Patient Medication Summary Completed 09/22/2014 Appointment: Loren Garza WPtel: [address] [place], [place] [address] ACUTE ILLNESS 09/21/2014 Patient Education: Patient Medication Summary Completed 09/21/2014 Patient Education: [facility] - Saving AutoInj - 18+ - Dynamic Portal ID Completed 09/21/2014 Visit Plan: Lab discussed Continue daily accuchecks Continue current meds 06/28/2014 Appointment: Neela Hyman WPtel: [address] [place], [place] [phone] FOLLOW UP 06/28/2014 Patient Education: Patient Medication Summary Completed 06/28/2014 Patient Education: Patient Medication Summary Completed 06/23/2014 Appointment: Sarah Sunshine WPtel: [address] [place], [place] [id number] ACUTE ILLNESS 06/10/2014 Patient Education: Patient Medication Summary Completed 06/10/2014 Patient Education: [facility] - Saving AutoInj - 18+ - Dynamic Portal ID Completed 06/10/2014 Visit Plan: Lab discussed Continue daily accuchecks Continue current meds 03/29/2014 Appointment: Neela Hyman WPtel: [address] [place], [place] [phone] FOLLOW UP 03/29/2014 Patient Education: Patient Medication Summary Completed 03/29/2014 Patient Education: Patient Medication Summary Completed 03/23/2014 Visit Plan: Lab discussed Continue curre nt meds and accuchecks See surgery for removal of hand lesion 11/30/2013 Appointment: Neela Hyman WPtel: [address] [place], [place] [id number] 11/29 no answer FOLLOW UP 11/30/2013 Patient Education: Patient Medication Summary Completed 11/30/2013 Visit Plan: Lab discussed Continue curre nt meds 08/03/2013 Appointment: Neela Hyman WPtel: [address] [place], [place] [phone] [place] FOLLOW UP 08/03/2013 Patient Education: Patient Medication Summary Completed 08/03/2013 Visit Plan: Lab Discussed Will continue current meds and pt will get back on diet/exercise Check lab in 4mos and fwup 04/06/2013 Appointment: Neela Hyman WPtel: [address] [place] [address] FOLLOW UP 04/06/2013 Patient Education: Patient Medication Summary Completed 04/06/2013 Visit Plan: Lab discussed Continue daily accuchecks 12/01/2012 Appointment: Neela Hyman WPtel: [address] [place] [address] 11/30 no answer FOLLOW UP 12/01/2012 Patient Education: Patient Medication Summary Completed 12/01/2012 Visit Plan: Continue current meds and da russell accuchecks Lab discussed 08/04/2012 Appointment: Neela Hyman WPtel: [address] [place] [address] FOLLOW UP 08/04/2012 Patient Education: Patient Medication Summary Completed 08/04/2012 Appointment: Neela Hyman WPtel: [address] [place] [address] UA 06/01/2012 Patient Education: Patient Medication Summary Completed 06/01/2012 Appointment: Janet Jean Baptiste WPtel: [address] [place] [address] FOLLOW UP 05/29/2012 Patient Education: Patient Medication Summary Completed 05/29/2012 Visit Plan: pt states Dr. Hyman told h is to increase his Prozac dose while she was talking to her at [facility]. Discussed that pt. should not increase or decrease dosage without 's knowledge. Pt. will seek hearing test here in town at the hearing aid place on [address]. Discussed that ear pain is likely caused by sinus pressure. Pt. will notify if no improvement. 05/25/2012 Appointment: aJnet Jean Baptiste WPtel: [address] [place], [place] [id number] ACUTE ILLNESS 05/25/2012 Patient Education: Patient Medication Summary Completed 05/25/2012 Visit Plan: Continue current meds Contin ue daily accuchecks but alternate times Increase fish oil to 3gm daily 04/07/2012 Appointment: Neela Hyman WPtel: [address] [place] [address] 04/06 FOLLOW UP 04/07/2012 Patient Education: Patient Medication Summary Completed 04/07/2012 Appointment: Janet Jean Baptiste WPtel: [address] [place] [address] ACUTE ILLNESS 12/16/2011 Patient Education: Patient Medication Summary Completed 12/16/2011 Visit Plan: Increase 12/03/2011 Appointment: Neela Hyman WPtel: [address] [place] [address] FOLLOW UP 12/03/2011 Patient Education: Patient Medication Summary Completed 12/03/2011 Visit Plan: Continue current meds Contin ue accuchecks 08/29/2011 Appointment: Neela Hyman WPtel: [address] [place] [address] FOLLOW UP 08/29/2011 Patient Education: Patient Medication Summary Completed 08/29/2011 Visit Plan: Continue current meds except restart zocor 05/30/2011 Appointment: Neela Hyman WPtel: [address] [place] [address] FOLLOW UP 05/30/2011 Patient Education: Patient Medication Summary Completed 05/30/2011 Visit Plan: Continue tennis elbow strap May go back to weight-lifing--light weigts every other day 01/29/2011 Appointment: Neela Hyman WPtel: [address] [place] [address] [place] FOLLOW UP 01/29/2011 Patient Education: Patient Medication Summary Completed 01/29/2011 Visit Plan: Continue tennis elbow strap and anti-inflammatories 01/14/2011 Appointment: Neela Hyman WPtel: [address] [place], [place] [id number] FOLLOW UP 01/14/2011 Appointment: Janet Jean Baptiste WPtel: [address] [place], [place] [phone] NEW PATIENT 01/14/2011 Patient Education: Patient Medication Summary Completed 01/14/2011 Appointment: Neela Hyman WPtel: [address] [place], [place] [phone] FOLLOW UP 01/08/2011 Appointment: Neela Hyman WPtel: [address] [place], [place] [id number] FOLLOW UP 01/01/2011 Appointment: Neela Hyman WPtel: [address] [place] [address] UA 01/01/2011 Patient Education: Patient Medication Summary [...] given. 11/29/2010 Appointment: Janet Jean Baptiste WPtel: [address] [place] [address] ACUTE ILLNESS 11/29/2010 Patient Education: Patient Medication Summary Completed 11/29/2010 Visit Plan: Cont current meds Check CMP, Lipids, HbA1C 08/28/2010 Appointment: Neela Hyman WPtel: [address] [place], [place] [phone] FOLLOW UP 08/28/2010 Patient Education: Patient Medication Summary Completed 08/28/2010 Visit Plan: Cont current meds and accuch ecks Add Zocor 40mg q HS Check Lipids and HbA1C in 3mos 06/05/2010 Appointment: Neela Hyman WPtel: [address] [place], [place] [phone] FOLLOW UP 06/05/2010 Patient Education: Patient Medication Summary Completed 06/05/2010 Visit Plan: Check Lipids and HbA1C 02/05/2010 Appointment: Neela Hyman WPtel: [address] [place], [place] [phone] [place] FOLLOW UP 02/05/2010 Patient Education: Patient Medication Summary Completed 02/05/2010 Visit Plan: HbA1C in 3mos. Continue Accu checks BID alternating times. Check HbA1C, CMP, Lipids 10/09/2009 Appointment: Neela Hyman WPtel: [address] [place], [place] [phone] FOLLOW UP 10/09/2009 Patient Education: Patient Medication Summary Completed 10/09/2009 Visit Plan: Saline nasal flushes prn. Ty lenol/Motrin prn headache. Notify if persists/symptoms worsening. 08/22/2009 Appointment: Neela Hyman WPtel: [address] [place], [place] [id number] ACUTE ILLNESS 08/22/2009 Patient Education: Patient Medication Summary Completed 08/22/2009 Referral: Aubrey Rand WPtel: [address] [place], [place] [phone] [place] Office will verfy his insurance then they will contact patient Completed Referral: Shahbaz Brennan WPtel: [address] [facility] 201 [id number] [place] Referral Completed Referral: Ion Levi [address] [place] [address] C&D [id number] [place] Referral Appointment Requested Referral: Ion Levi [address] C&D [id number] [place] Referral Appointment Requested Instructions Comment . [...] with it . Obtain EMGs done at [facility] from when fractured left arm Lab discussed [...] while she was talking to her at [facility]. Discussed that pt. should not increase or decrease dosage without Dr's knowledge. Pt. will seek hearing test here in town at the hearing aid place on [address]. Discussed that ear pain is likely caused [...]
[2019-12-09] MEDS ORDERED: fentaNYL INJECTION 100 MCG/2 ML AMP IVP STA ×2 (09:04→10:06)
[2019-12-09] MEDS ORDERED: NS IV 500 ML 500 ML IV ONE (09:04)
--- OUTSIDE RECORDS SUMMARY | 2019-12-09 09:04 | XMS REPORT | CCD ---
Author Author Michael Hyman D.O. Organization [facility] Address [address] [place] [address] Phone Care Team Providers Care Teacher Aide Name Role Phone Neela Hyman D.O., PP Unavailable CCM Unavailable Summary Purpose Interface Exchange Insurance Providers Payer name Policy type / Coverage type Covered democrat ID Effective Begin Date Effective End Date ABS FOR gDine Commercial Insurance [id number] Unknown Family History Family History data not found Social History Social History Element Codes Description Effective Dates Marital status Unknown 05/30/[address]: 1176331 Former smoker quit 25 years ago 01/01/2011 [...] Fill Instructions Lasix 40 mg tablet RxNorm: 181210 1 Tablet(s) Oral QD 08/24/201910/25 Active duloxetine 60 mg capsule,delayed release RxNorm: 098457 TAKE ONE CAPSULE BY MOUTH EVERY DAY 08/16/2019 02/11/2020 Active metoprolol succinate ER 100 mg tablet,extended release 24 hr RxNorm: 766460 TAKE ONE TABLET BY MOUTH TWICE A DAY 08/16/2019 05/11/2020 Active potassium chloride ER 20 mEq tablet,extended release RxNorm: 035252 1 Tablet(s) Oral two times a day 07/22/2019 10/19/2019 Active metformin 500 mg tablet RxNorm: 282408 2 Tablet(s) Oral two afshan es a day 07/13/2019 09/11/2019 Active Singulair 10 mg tablet RxNorm: 480495 TAKE ONE TABLET BY MOUTH EVERY EVENING 07/06/2019 01/02/2020 Active Reselected prescribe r from PEG [facility]HER to [facility] Keflex 500 mg capsule RxNorm: 685214 1 Capsule(s) Oral three ti mes a day 07/06/2019 07/13/2019 Inactive Singulair 10 mg tablet RxNorm: 031171 TAKE ONE TABLET BY MOUTH EVERY EVENING 06/22/2019 07/05/2019 Inactive Reselected prescribe r from PEG MAHER to [facility] Zocor 40 mg tablet RxNorm: 648853 TAKE ONE TABLET BY M OUTH EVERY NIGHT AT BEDTIME 06/21/2019 11/17/2019 Active MagOx 400 mg (241.3 mg magnesium) tablet RxNorm: 693936 1 Table t(s) Oral QD 06/21/2019 08/20/2019 Inactive diltiazem ER 360 mg capsule,24 hr,extended release RxNorm: 8 91815 TAKE ONE CAPSULE BY MOUTH AT BEDTIME -REPLACES 300MG 05/17/2019 11/12/2019 Active MagOx 400 mg (241.3 mg magnesium) tablet RxNorm: 272292 1 Table t(s) Oral QD 04/26/2019 06/20/2019 Inactive Lasix 40 mg tablet RxNorm: 156708 40 MG PO DAILY 04/12/2019 08/23/2019 Inactive Benicar 40 mg tablet RxNorm: 875772 1 Tablet(s) Oral QD 03/29/2019 Active potassium chloride ER 20 mEq tablet,extended release RxNorm: 225966 1 Tablet(s) Oral two times a day 03/29/2019 06/27/2019 Inactive potassium chloride ER 20 mEq tablet,extended release RxNorm: 445670 1 Tablet(s) Oral QD 03/29/2019 03/28/2019 Inactive Benicar 40 mg tablet RxNorm: 470773 1 Tablet(s) Oral QD 03/29/2019 Inactive MagOx 400 mg (241.3 mg magnesium) tablet RxNorm: 704968 1 Table t(s) Oral QD 03/29/2019 04/25/2019 Inactive metformin 500 mg tablet RxNorm: 463248 2 Tablet(s) Oral two afshan es a day 03/29/2019 07/12/2019 Inactive fenofibrate micronized 134 mg capsule RxNorm: 768147 TA KE ONE CAPSULE BY MOUTH EVERY DAY 03/05/2019 08/31/2019 Active duloxetine 60 mg capsule,delayed release RxNorm: 588514 1 Capsu le(s) PO QD 01/28/2019 07/26/2019 Inactive Trelegy Ellipta 100 mcg-62.5 mcg-25 mcg powder for inhalatio n RxNorm: 6450924 1 Puff(s) INH QD 01/06/2019 12/31/2019 Active 90 day supply prednisone 20 mg tablet RxNorm: 970724 1 Tablet(s) PO T ID for 3 days then 1 po BID for 3 days then 1 po daily for 3 days 01/05/2019 03/28/2019 Inacti ve metformin ER 1,000 mg tablet,extended release 24hr RxNorm: 1 713452 TAKE TWO TABLETS (1000MG) BY MOUTH TWO TIMES A DAY 12/22/2018 07/13/2019 Inacti ve Diflucan 100 mg tablet RxNorm: 277247 1 Tablet(s) PO QD 12/09/2018 Inactive prednisone 20 mg tablet RxNorm: 834144 1 Tablet(s) PO B ID for 4 days then 1 po daily for 4 days 11/24/2018 01/04/2019 Inactive albuterol sulfate 2.5 mg/3 mL (0.083 %) solution for n ebulization RxNorm: 050553 3 Milliliter(s) INH ONE VIAL VIA NEBULIZER EVERY 4 HOURS 019 07/21/2019 Inactive [AttnRPh: Saving apply/adjudicate RxGRP: SG20 RxBIN:[id number] RxPCN: ID#:[id number]] Trelegy Ellipta 100 mcg-62.5 mcg-25 mcg powder for inhalatio n RxNorm: 7915217 1 Puff(s) INH QD 10/27/2018 01/06/2019 Inactive 90 day supply diltiazem ER 360 mg capsule,24 hr,extended release RxNorm: 8 57032 TAKE ONE CAPSULE BY MOUTH AT BEDTIME -REPLACES 300MG 10/13/2018 04/10/2019 Inactive metoprolol succinate ER 100 mg tablet,extended release 24 hr RxNorm: 130126 TAKE ONE TABLET BY MOUTH TWICE A DAY 10/13/2018 07/09/2019 Inactive Trelegy Ellipta 100 mcg-62.5 mcg-25 mcg powder for inhalatio n RxNorm: 6578534 INHALE ONE PUFF ONCE DAILY 09/07/2018 10/27/2018 Inactive Levaquin 750 mg tablet RxNorm: 185128 1 Tablet(s) PO QD 09/07/2018 Inactive Levaquin 750 mg tablet RxNorm: 803366 1 Tablet(s) PO QD 09/07/2018 Inactive prednisone 20 mg tablet RxNorm: 596376 2 Tablet(s) PO QAM 08/13/2018 08/19/2018 Inactive Levaquin 500 mg tablet RxNorm: 571952 1 Tablet(s) PO QD 08/11/2018 Inactive fenofibrate micronized 134 mg capsule RxNorm: 354301 TA KE ONE CAPSULE BY MOUTH EVERY DAY 08/10/2018 02/05/2019 Inactive prednisone 20 mg tablet RxNorm: 098638 1 Tablet(s) PO BID 07/16/2018 07/20/2018 Inactive doxycycline hyclate 100 mg capsule RxNorm: 0874143 1 Capsule(s) PO BID 07/13/2018 07/22/2018 Inactive duloxetine 60 mg capsule,delayed release RxNorm: 935802 TAKE ONE CAPSULE BY MOUTH ONCE A DAY 07/08/2018 01/28/2019 Inactive Lasix 40 mg tablet RxNorm: 484905 1 TABLET(S) PO QAM 06/08/201809/05 Inactive potassium chloride ER 20 mEq tablet,extended release(p art/cryst) RxNorm: 0386313 1 TABLET(S) PO QD 06/08/2018 09/05/2018 Inactive metformin ER 1,000 mg tablet,extended release 24hr RxNorm: 1 959523 TAKE TWO TABLETS (1000MG) BY MOUTH TWO TIMES A DAY 06/01/2018 11/27/2018 Inacti ve Benicar HCT 40 mg-25 mg tablet RxNorm: 337327 TAKE ONE TABLET BY MOUTH ONCE DAILY 05/11/2018 03/28/2019 Inactive Zocor 40 mg tablet RxNorm: 800787 TAKE ONE TABLET BY M OUTH EVERY NIGHT AT BEDTIME 05/11/2018 06/20/2019 Inactive Trelegy Ellipta 100 mcg-62.5 mcg-25 mcg powder for inhalatio n RxNorm: 9722643 1 PUFF(S) INH QD 04/06/2018 07/04/2018 Inactive diltiazem ER 360 mg capsule,24 hr,extended release RxNorm: 8 39618 1 Capsule(s) PO QHS replaces 300mg dose 03/30/2018 09/25/2018 Inactive Trelegy Ellipta 100 mcg-62.5 mcg-25 mcg powder for inhalatio n RxNorm: 7984951 1 Puff(s) INH QD 02/24/2018 02/23/2018 Inactive Trelegy Ellipta 100 mcg-62.5 mcg-25 mcg powder for inhalatio n RxNorm: 0076281 1 Puff(s) INH QD 02/24/2018 02/23/2018 Inactive Trelegy Ellipta 100 mcg-62.5 mcg-25 mcg powder for inhalatio n RxNorm: 8319285 1 Puff(s) INH QD 02/24/2018 04/05/2018 Inactive Lasix 40 mg tablet RxNorm: 140835 1 Tablet(s) PO QAM 02/10/201803/11 Inactive potassium chloride ER 20 mEq tablet,extended release(p art/cryst) RxNorm: 4146973 1 Tablet(s) PO QD 02/10/2018 03/11/2018 Inactive fenofibrate micronized 134 mg capsule RxNorm: 475122 1 Capsule( s) PO QD 01/30/2018 07/28/2018 Inactive metoprolol succinate ER 100 mg tablet,extended release 24 hr RxNorm: 538243 TAKE ONE TABLET BY MOUTH TWICE A DAY 12/30/2017 09/25/2018 Inactive metformin ER 1,000 mg tablet,extended release 24hr RxNorm: 1 269700 1 Tablet(s) PO BID 11/17/2017 05/15/2018 Inactive [SAVINGS FOR NON -COVERED DRUGS -- BIN:030642, PCN: ASPROD1, Group: XXXXX, ID# [id number], Questions: . THIS IS NOT INSURANCE.] Benicar HCT 40 mg-25 mg tablet RxNorm: 364782 1 Tablet(s) PO QD 05/10/2018 Inactive [SAVINGS FOR NON-COVERED JESU GS -- BIN:810146, PCN: ASPROD1, Group: XXXXX, ID# [id number], Questions: . THIS IS NOT INSURANCE.] Bactroban 2 % topical cream RxNorm: 715778 Application TOP BID 10/2409/02/2018 Inactive clindamycin HCl 300 mg capsule RxNorm: 999546 2 Capsule(s) PO TID 0 11/05/2017 11/18/2017 Inactive duloxetine 60 mg capsule,delayed release RxNorm: 561961 Capsule(s) TAKE ONE CAPSULE BY MOUTH ONCE DAILY 09/24/2017 09/23/2017 Inactive triamcinolone acetonide 0.1 % topical ointment RxNorm: 2789007 1 TOP BID 09/09/2017 11/04/2017 Inactive Bactrim DS 800 mg-160 mg tablet RxNorm: 067556 1 Tablet(s) PO BID 0 08/07/2017 08/13/2017 Inactive metronidazole 500 mg tablet RxNorm: 760701 1 Tablet(s) PO BID 08/0708/13/2017 Inactive diltiazem ER 360 mg capsule,24 hr,extended release RxNorm: 8 86096 1 Capsule(s) PO QHS replaces 300mg dose 08/04/2017 01/30/2018 Inactive fenofibrate micronized 134 mg capsule RxNorm: 543048 1 Capsule( s) PO QD 07/21/2017 01/30/2018 Inactive Zocor 40 mg tablet RxNorm: 201989 1 Tablet(s) PO QHS 07/21/201705/10 Inactive GB duloxetine 60 mg capsule,delayed release RxNorm: 005132 Capsule(s) TAKE ONE CAPSULE BY MOUTH ONCE DAILY 06/24/2017 09/24/2017 Inactive Cleocin HCl 300 mg capsule RxNorm: 145988 2 Capsule(s) PO BID 06/0206/08/2017 Inactive acyclovir 800 mg tablet RxNorm: 096999 1 Tablet(s) PO 5x day 201706/08/2017 Inactive diltiazem ER 300 mg capsule,24 hr,extended release RxNorm: 8 45959 1 Capsule(s) PO QHS replaces 240mg dose 05/05/2017 08/03/2017 Inactive ipratropium-albuterol 0.5 mg-3 mg(2.5 mg base)/3 mL ne bulization soln RxNorm: 8660449 1 Unit Dose INH Q4H as needed 05/05/2017 01/04/2019 Inactive metformin ER 1,000 mg tablet,extended release 24hr RxNorm: 1 036911 1 Tablet(s) PO BID 04/28/2017 11/17/2017 Inactive [SAVINGS FOR NON -COVERED DRUGS -- BIN:559451, PCN: ASPROD1, Group: XXXXX, ID# XXXXXXX, Questions: . THIS IS NOT INSURANCE.] diltiazem ER (XR/XT) 240 mg capsule,extended release 2 4 hr, controlled RxNorm: 535468 TAKE ONE CAPSULE BY MOUTH EVERY DAY 04/15/2017 05/04/2017 Inact avani prednisone 20 mg tablet RxNorm: 203147 1 Tablet(s) PO QD 04/10/2017 1 06/14/2016 Inactive Breo Ellipta 200 mcg-25 mcg/dose powder for inhalation RxNor m: 6258075 1 Puff(s) INH QD 04/10/2017 02/09/2018 Inactive Breo Ellipta 200 mcg-25 mcg/dose powder for inhalation RxNor m: 5468843 1 Puff(s) INH QD 04/10/2017 04/09/2017 Inactive Levaquin 500 mg tablet RxNorm: 907626 1 Tablet(s) PO QD 04/10/2017 Inactive metoprolol succinate ER 100 mg tablet,extended release 24 hr RxNorm: 009632 TAKE ONE TABLET BY MOUTH TWICE A DAY 03/24/2017 12/18/2017 Inactive fenofibrate micronized 134 mg capsule RxNorm: 211501 1 Capsule( s) PO QD 01/16/2017 07/21/2017 Inactive Benicar HCT 40 mg-25 mg tablet RxNorm: 890876 1 Tablet(s) PO QD 11/17/2017 Inactive [SAVINGS FOR NON-COVERED JESU GS -- BIN:341758, PCN: ASPROD1, Group: XXXXX, ID# [id number], Questions: . THIS IS NOT INSURANCE.] metoprolol succinate ER 100 mg tablet,extended release 24 hr RxNorm: 134057 1 Tablet(s) PO BID 10/16/2016 03/23/2017 Inactive diltiazem ER (XR/XT) 240 mg capsule,extended release 2 4 hr, controlled RxNorm: 765373 1 Capsule(s) PO QD 10/16/2016 04/13/2017 Inactive [SAVINGS FOR NON- COVERED DRUGS -- BIN:230100, PCN: ASPROD1, Group: XXXXX, ID# XXXXXXX, Questions: . THIS IS NOT INSURANCE.] metformin ER 1,000 mg tablet,extended release 24hr RxNorm: 8 74328 1 Tablet(s) PO BID 10/16/2016 04/28/2017 Inactive [SAVINGS FOR NON -COVERED DRUGS -- BIN:681479, PCN: ASPROD1, Group: XXXXX, ID# [id number], Questions: . THIS IS NOT INSURANCE.] Zocor 40 mg tablet RxNorm: 750581 1 Tablet(s) PO QHS 10/16/201607/21 Inactive GB Singulair 10 mg tablet RxNorm: 472661 Tablet(s) 1 TABLET(S) PO QHS 08/27/2016 09/02/2018 Inactive prednisone 20 mg tablet RxNorm: 300208 1 Tablet(s) PO QD 08/27/2016 0 08/31/2016 Inactive ipratropium-albuterol 0.5 mg-3 mg(2.5 mg base)/3 mL ne bulization soln RxNorm: 1839769 1 Unit Dose INH Q4H as needed 08/27/2016 05/04/2017 Inactive metoprolol succinate ER 100 mg tablet,extended release 24 hr RxNorm: 676721 TAKE ONE TABLET BY MOUTH TWICE A DAY 08/05/2016 10/16/2016 Inactive duloxetine 60 mg capsule,delayed release RxNorm: 947490 TAKE ONE CAPSULE BY MOUTH ONCE DAILY 08/05/2016 06/24/2017 Inactive prednisone 20 mg tablet RxNorm: 895837 1 Tablet(s) PO QD 06/14/2016 0 06/18/2016 Inactive ipratropium-albuterol 0.5 mg-3 mg(2.5 mg base)/3 mL ne bulization soln RxNorm: 7196626 1 Unit Dose INH Q4H as needed 06/13/2016 08/26/2016 Inactive Levaquin 500 mg tablet RxNorm: 332078 1 Tablet(s) PO QD 06/13/2016 Inactive metoprolol succinate ER 100 mg tablet,extended release 24 hr RxNorm: 491708 1 Tablet(s) PO BID replaces 50mg dose 05/14/2016 07/12/2016 Inactive metoprolol succinate ER 50 mg tablet,extended release 24 hr RxNorm: 010165 1 Tablet(s) PO BID 04/29/2016 05/13/2016 Inactive prednisone 20 mg tablet RxNorm: 071650 1 Tablet(s) PO BID 04/22/2016 04/21/2016 Inactive prednisone 20 mg tablet RxNorm: 117777 1 Tablet(s) PO BID 04/22/2016 04/28/2016 Inactive Singulair 10 mg tablet RxNorm: 555784 Tablet(s) 1 TABLET(S) PO QHS 04/01/2016 08/26/2016 Inactive metoprolol succinate ER 25 mg tablet,extended release 24 hr RxNorm: 849124 1 Tablet(s) PO QHS for blood pressure 04/01/2016 05/13/2016 Inactive fenofibrate micronized 134 mg capsule RxNorm: 565675 TA KE ONE CAPSULE BY MOUTH DAILY 01/25/2016 01/16/2017 Inactive duloxetine 60 mg capsule,delayed release RxNorm: 557828 TAKE ONE CAPSULE BY MOUTH ONCE DAILY 01/25/2016 08/04/2016 Inactive Zocor 40 mg tablet RxNorm: 814265 TAKE ONE TABLET BY MOUTH AT B EDTIME 11/13/2015 10/16/2016 Inactive GB metformin ER 1,000 mg tablet,extended release 24hr RxNorm: 8 09695 1 Tablet(s) PO BID 10/26/2015 10/16/2016 Inactive [SAVINGS FOR NON -COVERED DRUGS -- BIN:032781, PCN: ASPROD1, Group: XXXXX, ID# [id number], Questions: . THIS IS NOT INSURANCE.] Benicar HCT 40 mg-25 mg tablet RxNorm: 334048 1 Tablet(s) PO QD 06/201511/11/2016 Inactive [SAVINGS FOR NON-COVERED JESU GS -- BIN:555958, PCN: ASPROD1, Group: XXXXX, ID# [id number], Questions: . THIS IS NOT INSURANCE.] diltiazem ER (XR/XT) 240 mg capsule,extended release,control led RxNorm: 446001 1 Capsule(s) PO QD 10/26/2015 10/15/2016 Inactive [SAVINGS FOR NO N-COVERED DRUGS -- BIN:583693, PCN: ASPROD1, Group: XXXXX, ID# [id number], Questions: . THIS IS NOT INSURANCE.] Singulair 10 mg tablet RxNorm: 601440 1 TABLET(S) PO QHS 09/18/2015 1 05/31/2015 Inactive Viagra 100 mg tablet RxNorm: 646914 1 Tablet(s) PO as needed 201511/23/2018 Inactive Singulair 10 mg tablet RxNorm: 202156 1 Tablet(s) PO QHS 08/16/2015 0 08/15/2015 Inactive Singulair 10 mg tablet RxNorm: 634469 1 Tablet(s) PO QHS 08/16/2015 0 09/14/2015 Inactive duloxetine 60 mg capsule,delayed release RxNorm: 330493 1 Capsule(s) PO QD replaces fluoxetine 08/14/2015 01/24/2016 Inactive ipratropium-albuterol 0.5 mg-3 mg(2.5 mg base)/3 mL ne bulization soln RxNorm: 4662613 1 Unit Dose INH Q4H as needed 08/14/2015 06/12/2016 Inactive prednisone 20 mg tablet RxNorm: 011038 Take 3 tabs PO o nce daily x 3 days, then 2 tabs PO once daily x 3 days and then 1 tab PO once daily x 3 days 08/09/2015 08/13/2015 Inactive Symbicort 160 mcg-4.5 mcg/actuation HFA aerosol inhaler RxNo rm: 6484220 2 Puff(s) INH BID 08/09/2015 08/13/2015 Inactive Zocor 40 mg tablet RxNorm: 181058 1 Tablet(s) PO QHS 05/23/201511/11 Inactive [AttnRPh: Saving apply/adjudicate RxGRP: SG20 RxBIN:[id number] RxPCN: ID#:[id number]] Benicar HCT 40 mg-25 mg tablet RxNorm: 081125 1 Tablet(s) PO QD 10/26/2015 Inactive [SAVINGS FOR NON-COVERED JESU GS -- BIN:190674, PCN: ASPROD1, Group: XXXXX, ID# [id number], Questions: . THIS IS NOT INSURANCE.] diltiazem ER (XR/XT) 240 mg capsule,extended release,control led RxNorm: 920215 1 Capsule(s) PO QD 04/24/2015 10/20/2015 Inactive [SAVINGS FOR NO N-COVERED DRUGS -- BIN:108973, PCN: ASPROD1, Group: XXXXX, ID# XXXXXXX, Questions: . THIS IS NOT INSURANCE.] fluoxetine 40 mg capsule RxNorm: 992745 1 Capsule(s) PO QD 04/24/20 15 08/13/2015 Inactive [SAVINGS FOR NON-COVERED JESU GS -- BIN:820696, PCN: ASPROD1, Group: XXXXX, ID# XXXXXXX, Questions: . THIS IS NOT INSURANCE.] Zocor 40 mg tablet RxNorm: 174416 TABLET(S) 1 TABLET(S) PO QHS 01/2505/23/2015 Inactive [AttnRPh: Saving apply/adjud icate RxGRP:SG20 RxBIN:[id number] RxPCN:HT ID#:[id number]] metformin ER 1,000 mg tablet,extended release 24hr RxNorm: 8 89854 1 TABLET(S) PO BID 01/29/2015 10/26/2015 Inactive [SAVINGS FOR NON -COVERED DRUGS -- BIN:679619, PCN: ASPROD1, Group: XXXXX, ID# XXXXXXX, Questions: . THIS IS NOT INSURANCE.] fenofibrate micronized 134 mg capsule RxNorm: 649223 1 CAPSULE( S) PO QD 01/23/2015 01/17/2016 Inactive fenofibrate micronized 134 mg capsule RxNorm: 019599 1 Capsule( s) PO QD 11/07/2014 01/22/2015 Inactive diltiazem ER (XR/XT) 240 mg capsule,extended release,control led RxNorm: 489372 1 Capsule(s) PO QD 10/24/2014 04/24/2015 Inactive [SAVINGS FOR NO N-COVERED DRUGS -- BIN:669980, PCN: ASPROD1, Group: XXXXX, ID# XXXXXXX, Questions: . THIS IS NOT INSURANCE.] Benicar HCT 40 mg-25 mg tablet RxNorm: 629762 1 Tablet(s) PO QD 05/201404/24/2015 Inactive [SAVINGS FOR NON-COVERED JESU GS -- BIN:719834, PCN: ASPROD1, Group: XXXXX, ID# [id number], Questions: . THIS IS NOT INSURANCE.] fluoxetine 40 mg capsule RxNorm: 274773 1 Capsule(s) PO QD 10/25/1904/24/2015 Inactive [SAVINGS FOR NON-COVERED JESU GS -- BIN:820955, PCN: ASPROD1, Group: XXXXX, ID# XXXXXXX, Questions: . THIS IS NOT INSURANCE.] azithromycin 500 mg tablet RxNorm: 589158 1 Tablet(s) PO QD 015 09/27/2014 Inactive [SAVINGS FOR NON-COVERED JESU GS -- BIN:725161, PCN: ASPROD1, Group: XXXXX, ID# XXXXXXX, Questions: . THIS IS NOT INSURANCE.] albuterol sulfate 2.5 mg/3 mL (0.083 %) solution for n ebulization RxNorm: 522016 3 Milliliter(s) INH ONE VIAL VIA NEBULIZER EVERY 4 HOURS 015 11/19/2014 Inactive [AttnRPh: Saving apply/adjudicate RxGRP: SG20 RxBIN:[id number] RxPCN: ID#:[id number]] Zocor 40 mg tablet RxNorm: 565253 TABLET(S) 1 TABLET(S ) PO QHS 1 TABLET(S) PO QHS 09/04/2014 02/21/2015 Inactive [AttnRPh: Saving apply/adjudicate RxGRP:SG20 RxBIN:[id number] RxPCN:HT ID#:[id number]] metformin ER 1,000 mg tablet,extended release 24hr RxNorm: 8 38930 1 Tablet(s) PO BID 08/04/2014 01/28/2015 Inactive [SAVINGS FOR NON -COVERED DRUGS -- BIN:229170, PCN: ASPROD1, Group: XXXXX, ID# XXXXXXX, Questions: . THIS IS NOT INSURANCE.] Bromfed DM 2 mg-30 mg-10 mg/5 mL syrup RxNorm: 0084847 1 -2 Teaspoon(s) PO Q4H as needed for cough 06/10/2014 06/19/2014 Inactive [SAVINGS FOR UN INSURED PATIENTS -- BIN:346026, PCN: ASPROD1, Group: AME08, ID# [id number], Process claim through [employer], for questions: . THIS IS NOT INSURANCE.] Augmentin 875 mg-125 mg tablet RxNorm: 536983 1 Tablet(s) PO Q12H 0 06/10/2014 06/19/2014 Inactive [AttnRPh: Saving apply/adjud icate RxGRP:SG20 RxBIN:[id number] RxPCN:HT ID#:[id number]] Zocor 40 mg tablet RxNorm: 811537 Tablet(s) 1 TABLET(S ) PO QHS 1 TABLET(S) PO QHS 05/25/2014 08/22/2014 Inactive [AttnRPh: Saving apply/adjudicate RxGRP:SG20 RxBIN:[id number] RxPCN:HT ID#:[id number]] fluoxetine 40 mg capsule RxNorm: 959301 1 Capsule(s) PO QD 04/29/20 14 10/24/2014 Inactive [AttnRPh: Saving apply/adjud icate RxGRP:SG20 RxBIN:[id number] RxPCN:HT ID#:[id number]] diltiazem ER (XR/XT) 240 mg capsule,extended release,control led RxNorm: 885099 1 Capsule(s) PO QD 04/29/2014 10/24/2014 Inactive [AttnRPh: Leonelin g apply/adjudicate RxGRP:SG20 RxBIN:[id number] RxPCN:HT ID#:[id number]] Benicar HCT 40 mg-25 mg tablet RxNorm: 221245 1 Tablet(s) PO QD 09/201310/24/2014 Inactive [AttnRPh: Saving apply/adjud icate RxGRP:SG20 RxBIN:[id number] RxPCN:HT ID#:[id number]] Zocor 40 mg tablet RxNorm: 274951 1 TABLET(S) PO QHS 1 TABLET(S ) PO QHS 03/07/2014 05/25/2014 Inactive [AttnRPh: Saving chelsie ly/adjudicate RxGRP:SG20 RxBIN:[id number] RxPCN:HT ID#:[id number]] Zocor 40 mg tablet RxNorm: 897595 1 Tablet(s) PO QHS 1 TABLET(S ) PO QHS 12/06/2013 03/05/2014 Inactive [AttnRPh: Saving chelsie ly/adjudicate RxGRP:SG20 RxBIN:[id number] RxPCN:HT ID#:[id number]] diltiazem ER (XR/XT) 240 mg capsule,extended release,control led RxNorm: 911577 1 Capsule(s) PO QD 10/25/2013 04/22/2014 Inactive [AttnRPh: Leonelin g apply/adjudicate RxGRP:SG20 RxBIN:[id number] RxPCN:HT ID#:[id number]] fluoxetine 40 mg capsule RxNorm: 112042 1 Capsule(s) PO QD 10/26/19 14 04/22/2014 Inactive [AttnRPh: Saving apply/adjud icate RxGRP:SG20 RxBIN:[id number] RxPCN: ID#:[id number]] Zocor 40 mg tablet RxNorm: 359948 1 Tablet(s) PO QHS 1 TABLET(S ) PO QHS 09/13/2013 12/06/2013 Inactive metformin ER 1,000 mg tablet,extended release 24hr RxNorm: 8 66245 Tablet(s) PO TAKE 1 TABLET BY MOUTH TWICE DAILY (REPLACES 500MG DOSE) 07/26/201303/2015 Inactive diltiazem ER (XR/XT) 240 mg capsule,extended release,control led RxNorm: 878515 1 Capsule(s) PO QD 05/03/2013 10/25/2013 Inactive fluoxetine 40 mg capsule RxNorm: 046081 1 Capsule(s) PO QD 05/03/20 13 10/25/2013 Inactive Benicar HCT 40 mg-25 mg tablet RxNorm: 497450 1 Tablet(s) PO QD 01/201304/29/2014 Inactive Zocor 40 mg tablet RxNorm: 464130 1 Tablet(s) PO QHS 12/10/201209/13 Inactive fluoxetine 40 mg capsule RxNorm: 356779 1 Capsule(s) PO QD 11/10/19 13 05/03/2013 Inactive diltiazem ER (XR/XT) 240 mg capsule,extended release,control led RxNorm: 909413 1 Capsule(s) PO QD 11/09/2012 05/03/2013 Inactive Benicar HCT 40 mg-25 mg tablet RxNorm: 411966 1 Tablet(s) PO QD 05/03/2013 Inactive metformin ER 1,000 mg tablet,extended release 24hr RxNorm: 8 95052 Tablet(s) PO TAKE 1 TABLET BY MOUTH TWICE DAILY (REPLACES 500MG DOSE) 08/05/201206/2013 Inactive Zocor 40 mg tablet RxNorm: 462604 1 Tablet(s) PO QHS 06/15/201212/09 Inactive fluoxetine 40 mg capsule RxNorm: 366588 1 Capsule(s) PO QD 05/15/20 12 11/08/2012 Inactive Neurontin 600 mg Tab RxNorm: 575556 1 Tablet(s) PO QHS 12/03/2011 Inactive metformin ER 1,000 mg tablet,extended release 24hr RxNorm: 8 17000 1 Tablet(s) PO BID replaces 500mg dose 12/03/2011 07/26/2013 Inactive Zocor 40 mg tablet RxNorm: 251257 1 Tablet(s) PO QHS 12/03/201106/15 Inactive fluoxetine 20 mg capsule RxNorm: 534196 1 Capsule(s) PO QD 12/03/19 12 05/24/2012 Inactive diltiazem ER (XR/XT) 240 mg capsule,extended release,control led RxNorm: 843217 1 Capsule(s) PO QD 11/15/2011 11/09/2012 Inactive Benicar HCT 40 mg-25 mg tablet RxNorm: 883304 1 Tablet(s) PO QD 02/16/2012 Inactive metformin ER 500 mg 24 hr Tab RxNorm: 718725 1 Tablet(s) PO BID 12/02/2011 Inactive Zocor 40 mg Tab RxNorm: 906311 1 Tablet(s) PO QHS 05/30/2011 11/25/19 12 Inactive fluoxetine 20 mg Cap RxNorm: 503159 1 Capsule(s) PO QD 05/28/2011 Inactive Neurontin 600 mg Tab RxNorm: 011591 1 Tablet(s) PO QHS 05/28/2011 Inactive Neurontin 600 mg Tab RxNorm: 908405 1 Tablet(s) PO QHS 02/22/201106/2011 Inactive Neurontin 600 mg Tab RxNorm: 352837 1 Tablet(s) PO QHS 01/14/2011 Inactive Neurontin 300 mg Cap RxNorm: 097628 1 Capsule(s) PO QHS 01/14/2011 Inactive Neurontin 600 mg Tab RxNorm: 684378 1 Tablet(s) PO QHS 01/14/2011 Inactive Medrol (Vipul) 4 mg Tabs in a Dose Pack RxNorm: 275607 Tablet(s) PO 0 01/02/2011 08/28/2011 Inactive as directed fluoxetine 20 mg Cap RxNorm: 996046 1 Capsule(s) PO QD 12/10/201006/2011 Inactive Zocor 40 mg Tab RxNorm: 540564 1 Tablet(s) PO QHS 12/03/2010 05/29/19 12 Inactive Neurontin 300 mg Cap RxNorm: 828814 1 Capsule(s) PO QHS 12/03/2010 Inactive Septra DS 800 mg-160 mg Tab RxNorm: 992790 1 Tablet(s) PO BID 11/2912/08/2010 Inactive diltiazem ER (XR/XT) 240 mg Continuous Release Cap RxNorm: 8 21030 1 Capsule(s) PO QD 11/20/2010 11/15/2011 Inactive Neurontin 300 mg Cap RxNorm: 239408 1 Capsule(s) PO QHS 11/06/2010 Inactive Neurontin 300 mg Cap RxNorm: 997121 1 Capsule(s) PO QHS 11/06/2010 Inactive Celebrex 200 mg Cap RxNorm: 190953 1 Capsule(s) PO BID 10/24/2010 Inactive fluoxetine 20 mg Cap RxNorm: 558085 1 Capsule(s) PO QD 06/07/201003/2011 Inactive Zocor 40 mg Tab RxNorm: 156912 1 Tablet(s) PO QHS 06/05/2010 12/02/19 11 Inactive Benicar HCT 40 mg-25 mg Tab RxNorm: 080869 1 Tablet(s) PO QD 200908/21/2011 Inactive Diltiazem 240 mg Continuous Release Cap RxNorm: 865259 1 Capsul e(s) PO QD 11/09/2009 09/02/2018 Inactive Avelox 400 mg Tab RxNorm: 392163 1 Tablet(s) PO QD 08/22/2009 010 Inactive ProAir HFA 90 mcg/actuation aerosol inhaler RxNorm: 262992 2 Puff(s) INH Q4H as needed No Start Date Active tramadol 50 mg tablet RxNorm: 491606 1-2 Tablet(s) PO TID as ne eded for pain No Start Date Active Tylenol Arthritis 650 mg Tab RxNorm: 3943000 2 Tablet(s) PO QD No Sta rt Date Active Celebrex 200 mg Cap RxNorm: 185854 1 Capsule(s) PO BID No Start Date 08/08/2015 Inactive Medrol (Vipul) 4 mg Tabs in a Dose Pack RxNorm: 789186 Tablet(s) PO N o Start Date 01/01/2011 Inactive as directed Promethazine-DM 6.25 mg-15 mg/5 mL Syrup RxNorm: 215950 1-2 Teaspoon(s) PO Q4H prn cough No Start Date 08/28/2011 Inactive Claritin 10 mg tablet RxNorm: 617824 1 Tablet(s) PO QD No Start Date 08/08/2015 Inactive Htwiqyudps-Tlfuh-FRO-James-115HC Oral RxNorm: Oral No Start Da te 03/28/2019 Inactive Breo Ellipta 200 mcg-25 mcg/dose powder for inhalation RxNor m: 5482428 1 Puff(s) INH QD No Start Date 04/09/2017 Inactive metformin 500 mg Tab RxNorm: 482732 1 Tablet(s) PO QD No Start Date 0 08/17/2011 Inactive Diltiazem 240 mg Continuous Release Cap RxNorm: 153453 1 Capsul e(s) PO BID No Start Date 11/08/2009 Inactive fluoxetine 20 mg Cap RxNorm: 033338 1 Capsule(s) PO QD No Start Date 06/07/2010 Inactive Multivitamin & Mineral Formula Oral RxNorm: Oral No Start Da te 03/28/2019 Inactive Medrol (Vipul) 4 mg tablets in a dose pack RxNorm: 527686 Tablet(s) PO as directed No Start Date 05/28/2012 Inactive Fish Oil 1,000 mg Cap RxNorm: 1 Capsule(s) PO QD No Start Date 07/2018 Inactive Nexium 40 mg Cap RxNorm: 514932 1 Capsule(s) PO QD No Start Date 07/24 Inactive fluticasone 50 mcg/actuation nasal spray,suspension RxNorm: 9233289 2 [place] NASAL QD to each nostril No Start Date 08/03/2017 Inactive Viagra 100 mg tablet RxNorm: 025260 1 Tablet(s) PO as needed No Sta rt Date 09/17/2015 Inactive prednisone 20 mg tablet RxNorm: 411340 1 Tablet(s) PO B ID for 4 days then 1 po daily for 4 days No Start Date 11/23/2018 Inactive Benicar HCT 40 mg-25 mg Tab RxNorm: 438609 1 Tablet(s) PO QD No Sta rt [...] Date S ervice Location MICROALBUMIN URINE RANDOM 79556 MICRL MG/L 5.8 MG/L 03/2011 Unknown MICROALBUMIN URINE RANDOM 34432 XM.ALB/CRE 5.2 MG/GCR Unknown MICROALBUMIN URINE RANDOM 17779 CREAT MG/D 111 MG/DL 03/2011 Unknown MICROALBUMIN URINE RANDOM 37376 CRE/100 1.11 G/L 12/24 Unknown Procedures Procedure Codes Date FLU VACC PRSV FREE INC ANTIG 65 AND OLDER CPT-4: 45675 03/04/2019 ADMIN PNEUMOCOCCAL VACCINE CPT-4: G0009 03/04/2019 ADMIN INFLUENZA VIRUS VAC CPT-4: G0008 03/04/2019 FLU VACC PRSV FREE INC ANTIG 65 AND OLDER CPT-4: 74111 03/04/2019 PNEUMOCOCCAL VACC 23 [facility] IM CPT-4: 60904 03/04/2019 THER/PROPH/DIAG INJ SC/IM CPT-4: 41454 08/11/2018 TRIAMCINOLONE ACET INJ NOS CPT-4: J3301 08/11/2018 DEXAMETHASONE SODIUM PHOS CPT-4: J1100 08/11/2018 THER/PROPH/DIAG INJ SC/IM CPT-4: 71927 07/16/2018 METHYLPREDNISOLONE INJECTION CPT-4: J2930 07/16/2018 INFLUENZA ASSAY W/OPTIC CPT-4: 11864 07/16/2018 THER/PROPH/DIAG INJ SC/IM CPT-4: 04917 07/13/2018 TRIAMCINOLONE ACET INJ NOS CPT-4: J3301 07/13/2018 THER/PROPH/DIAG INJ SC/IM CPT-4: 04282 05/04/2018 METHYLPREDNISOLONE INJECTION CPT-4: J2930 05/04/2018 FLU VACC PRSV FREE INC ANTIG 65 AND OLDER CPT-4: 17329 02/10/2018 PNEUMOCOCCAL VACC 13 [facility] IM CPT-4: 46749 02/10/2018 ADMIN INFLUENZA VIRUS VAC CPT-4: G0008 02/10/2018 ADMIN PNEUMOCOCCAL VACCINE CPT-4: G0009 02/10/2018 THER/PROPH/DIAG INJ SC/IM CPT-4: 84488 09/09/2017 TRIAMCINOLONE ACET INJ NOS CPT-4: J3301 09/09/2017 ALBUTEROL NON-COMP UNIT CPT-4: J7613 04/10/2017 AIRWAY INHALATION TREATMENT CPT-4: 38258 04/10/2017 PRESCRIP TRANSMIT VIA ERX SY CPT-4: G8553 04/10/2017 FLU VACC PRSV FREE INC ANTIG 65 AND OLDER CPT-4: 74522 03/28/2017 ADMIN INFLUENZA VIRUS VAC CPT-4: G0008 03/28/2017 PRESCRIP TRANSMIT VIA ERX SY CPT-4: G8553 08/27/2016 PRESCRIP TRANSMIT VIA ERX SY CPT-4: G8553 06/14/2016 ALBUTEROL NON-COMP UNIT CPT-4: J7613 06/13/2016 AIRWAY INHALATION TREATMENT CPT-4: 44273 06/13/2016 PRESCRIP TRANSMIT VIA ERX SY CPT-4: [...] CPT-4: G8553 11/07/2014 THER/PROPH/DIAG INJ SC/IM CPT-4: 94105 09/21/2014 METHYLPREDNISOLONE INJECTION CPT-4: J2930 09/21/2014 PRESCRIP TRANSMIT VIA ERX SY CPT-4: G8553 09/21/2014 PRESCRIP TRANSMIT VIA ERX SY CPT-4: G8553 06/10/2014 URINALYSIS NONAUTO W/O SCOPE CPT-4: 12186 06/01/2012 PRESCRIP TRANSMIT VIA ERX SY CPT-4: G8553 05/25/2012 PRESCRIP TRANSMIT VIA ERX SY CPT-4: G8553 12/03/2011 CUR TOBACCO NON-USER CPT-4: G8457 05/30/2011 PRESCRIP TRANSMIT VIA ERX SY CPT-4: G8553 05/30/2011 URINALYSIS NONAUTO W/O SCOPE CPT-4: 47286 01/01/2011 URINE CULTURE/ COLONY COUNT CPT-4: 59464 01/01/2011 CUR TOBACCO NON-USER CPT-4: G8457 01/01/2011 [...] 1: 114/68 Code: 8480-6 BMI: 43.5 Code: 53734-9 Heart Rate 1: 52 bpm Height: 6'1" [...] 1: 136/72 Code: 8480-6 BMI: 42.7 Code: 38768-7 Heart Rate 1: 60 bpm Height: 6'1" Respiratory Rate: 22 bpm SpO2: 95% Tempera ture: 37.1 (C) / 98.7 (F) Weight: 324 lbs 02/10/2018 Blood Pressure 1: 146/78 Code: 8480-6 BMI: 42.4 Code: 49613-1 Heart Rate 1: 64 bpm Height: 6'1" Respiratory Rate: 22 bpm SpO2: 95% Tempera ture: 36.5 (C) / 97.7 (F) Weight: 321 lbs 11/05/2017 Blood Pressure 1: 128/84 Code: 8480-6 BMI: 42.9 Code: 54741-5 Heart Rate 1: 52 bpm Height: 6'1" Respiratory Rate: 22 bpm SpO2: 95% Tempera ture: 36.3 (C) / 97.3 (F) Weight: 325 lbs 09/09/2017 Blood Pressure 1: 162/90 Code: 8480-6 BMI: 42.5 Code: 78308-9 Heart Rate 1: 60 bpm Height: 6'1" Respiratory Rate: 24 bpm SpO2: 95% Tempera ture: 36.4 (C) / 97.6 (F) Weight: 322 lbs 08/07/2017 Blood Pressure 1: 152/90 Code: 8480-6 BMI: 42.2 Code: 51420-1 Heart Rate 1: 60 bpm Height: 6'1" Respiratory Rate: 26 bpm SpO2: 94% Tempera ture: 36.6 (C) / 97.8 (F) Weight: 320 lbs 08/04/2017 Blood Pressure 1: 150/86 Code: 8480-6 BMI: 42.7 Code: 48671-8 Heart Rate 1: 64 bpm Height: 6'1" Respiratory Rate: 20 bpm SpO2: 94% Tempera ture: 36.3 (C) / 97.3 (F) Weight: 324 lbs 06/04/2017 Blood Pressure 1: 164/90 Code: 8480-6 Heart Rate 1: 60 bpm Respiratory Rate: 24 bpm SpO2: 94% Temperature: 36.8 (C) / 98.3 (F) 06/02/2017 Blood Pressure 1: 162/80 Code: 8480-6 BMI: 42.9 Code: 04449-7 Heart Rate 1: 66 bpm Height: 6'1" Respiratory Rate: 22 bpm SpO2: 98% Tempera ture: 36.6 (C) / 97.8 (F) Weight: 325 lbs 05/05/2017 Blood Pressure 1: 164/94 Code: 8480-6 BMI: 41.4 Code: 73060-0 Heart Rate 1: 64 bpm Height: 6'1" Respiratory Rate: 22 bpm SpO2: 95% Tempera ture: 36.4 (C) / 97.5 (F) Weight: 314 lbs 04/10/2017 Blood Pressure 1: 136/78 Code: 8480-6 BMI: 42.0 Code: 83757-5 Heart Rate 1: 76 bpm Height: 6'1" Respiratory Rate: 24 bpm SpO2: 92% Tempera ture: 35.9 (C) / 96.7 (F) Weight: 318 lbs 02/03/2017 Blood Pressure 1: 134/82 Code: 8480-6 BMI: 41.7 Code: 31340-1 Heart Rate 1: 72 bpm Height: 6'1" Respiratory Rate: 24 bpm SpO2: 95% Tempera ture: 36.1 (C) / 97.0 (F) Weight: 316 lbs 10/30/2016 Blood Pressure 1: 126/74 Code: 8480-6 BMI: 41.3 Code: 96845-4 Heart Rate 1: 68 bpm Height: 6'1" Respiratory Rate: 20 bpm Temperature: 37 .1 (C) / 98.8 (F) Weight: 313 lbs 08/30/2016 Blood Pressure 1: 146/80 Code: 8480-6 BMI: 41.7 Code: 03810-8 Heart Rate 1: 64 bpm Height: 6'1" Respiratory Rate: 24 bpm SpO2: 94% Tempera ture: 36.6 (C) / 97.8 (F) Weight: 316 lbs 08/27/2016 Blood Pressure 1: 124 Code: 8480-6 Heart Rate 1: 66 bpm Height: 6'2" Respiratory Rate: 18 bpm SpO2: 94% Temperature: 36.6 (C) / 97.8 (F) Weight: 07/02/2016 Blood Pressure 1: 126 Code: 8480-6 BMI: 41.4 Code: 39862-0 Heart Rate 1: 68 bpm Height: 6'1" Respiratory Rate: 24 bpm SpO2: 94% Tempera ture: 36.6 (C) / 97.8 (F) Weight: 314 lbs 06/14/2016 Blood Pressure 1: 146/82 Code: 8480-6 Heart Rate 1: 80 bpm Respiratory Rate: 20 bpm SpO2: 95% Temperature: 37.3 (C) / 99.2 (F) 06/13/2016 Blood Pressure 1: 146/84 Code: 8480-6 BMI: 40.5 Code: 17359-8 Heart Rate 1: 66 bpm Height: 6'1" Respiratory Rate: 28 bpm SpO2: 93% Tempera ture: 35.8 (C) / 96.4 (F) Weight: 307 lbs 05/14/2016 Blood Pressure 1: 146/90 Code: 8480-6 BMI: 41.2 Code: 58051-0 Heart Rate 1: 68 bpm Height: 6'1" Respiratory Rate: 26 bpm Temperature: 36 .8 (C) / 98.2 (F) Weight: 312 lbs 04/29/2016 Blood Pressure 1: 152/90 Code: 8480-6 BMI: 41.0 Code: 40831-6 Heart Rate 1: 68 bpm Height: 6'1" Respiratory Rate: 26 bpm SpO2: 94% Tempera ture: 36.1 (C) / 96.9 (F) Weight: 311 lbs 04/22/2016 Blood Pressure 1: 152/94 Code: 8480-6 BMI: 40.9 Code: 30927-0 Heart Rate 1: 68 bpm Height: 6'1" Respiratory Rate: 24 bpm SpO2: 94% Tempera ture: 36.2 (C) / 97.2 (F) Weight: 310 lbs 04/01/2016 Blood Pressure 1: 156/78 Code: 8480-6 BMI: 40.6 Code: 06912-8 Heart Rate 1: 84 bpm Height: 6'1" Respiratory Rate: 22 bpm SpO2: 95% Tempera ture: 37.1 (C) / 98.7 (F) Weight: 308 lbs 11/30/2015 Blood Pressure 1: 142/80 Code: 8480-6 BMI: 40.5 Code: 62274-0 Heart Rate 1: 88 bpm Height: 6'1" Respiratory Rate: 22 bpm Temperature: 36 .2 (C) / 97.2 (F) Weight: 307 lbs 08/29/2015 Blood Pressure 1: 132/70 Code: 8480-6 BMI: 40.0 Code: 06336-2 Heart Rate 1: 76 bpm Height: 6'1" Respiratory Rate: 24 bpm SpO2: 96% Tempera ture: 36.7 (C) / 98.0 (F) Weight: 303 lbs 08/14/2015 Blood Pressure 1: 126/80 Code: 8480-6 BMI: 39.4 Code: 16255-4 Heart Rate 1: 92 bpm Height: 6'1" Respiratory Rate: 24 bpm SpO2: 94% Tempera ture: 37.8 (C) / 100.0 (F) Weight: 299 lbs 08/09/2015 Blood Pressure 1: 146/82 Code: 8480-6 Heart Rate 1: 82 bpm Respiratory Rate: 22 bpm SpO2: 93% Temperature: 35.9 (C) / 96.6 (F) We ight: 310 lbs 05/22/2015 Blood Pressure 1: 156/76 Code: 8480-6 BMI: 41.0 Code: 93595-0 Heart Rate 1: 100 bpm Height: 6'1" Respiratory Rate: 22 bpm Temperature: 37 .2 (C) / 98.9 (F) Weight: 311 lbs 02/13/2015 Blood Pressure 1: 166/90 Code: 8480-6 BMI: 41.2 Code: 60054-4 Heart Rate 1: 72 bpm Height: 6'1" Respiratory Rate: 24 bpm SpO2: 93% Tempera ture: 36.9 (C) / 98.5 (F) Weight: 312 lbs 11/07/2014 Blood Pressure 1: 134/70 Code: 8480-6 BMI: 40.5 Code: 74536-1 Heart Rate 1: 76 bpm Height: 6'1" Respiratory Rate: 24 bpm Temperature: 36 .9 (C) / 98.4 (F) Weight: 307 lbs 10/04/2014 Blood Pressure 1: 144/86 Code: 8480-6 BMI: 40.1 Code: 15816-8 Heart Rate 1: 76 bpm Height: 6'1" Respiratory Rate: 28 bpm Temperature: 36 .6 (C) / 97.9 (F) Weight: 304 lbs 09/22/2014 Blood Pressure 1: 142/80 Code: 8480-6 BMI: 40.0 Code: 65217-5 Heart Rate 1: 80 bpm Height: 6'1" Respiratory Rate: 22 bpm SpO2: 96% Tempera ture: 36.6 (C) / 97.8 (F) Weight: 303 lbs 09/21/2014 Blood Pressure 1: 160/66 Code: 8480-6 BMI: 40.0 Code: 79997-5 Heart Rate 1: 90 bpm Height: 6'1" Respiratory Rate: 26 bpm SpO2: 94% Tempera ture: 35.7 (C) / 96.2 (F) Weight: 303 lbs 06/28/2014 Blood Pressure 1: 132/80 Code: 8480-6 BMI: 41.0 Code: 47045-7 Heart Rate 1: 64 bpm Height: 6' Respiratory Rate: 20 bpm Temperature: 36 .7 (C) / 98.0 (F) Weight: 302 lbs 06/10/2014 Blood Pressure 1: 152/70 Code: 8480-6 BMI: 41.1 Code: 03054-3 Heart Rate 1: 76 bpm Height: 6' Respiratory Rate: 20 bpm Temperature: 36 .6 (C) / 97.8 (F) Weight: 303 lbs 03/29/2014 Blood Pressure 1: 132/78 Code: 8480-6 BMI: 40.6 Code: 12632-7 Heart Rate 1: 84 bpm Height: 6' Respiratory Rate: 22 bpm Temperature: 37 .1 (C) / 98.8 (F) Weight: 299 lbs 11/30/2013 Blood Pressure 1: 136/84 Code: 8480-6 BMI: 39.2 Code: 26017-5 Heart Rate 1: 76 bpm Height: 6' Respiratory Rate: 20 bpm Temperature: 36 .8 (C) / 98.2 (F) Weight: 289 lbs 08/03/2013 Blood Pressure 1: 144/80 Code: 8480-6 Heart Rate 1: 86 bpm Respiratory Rate: 20 bpm Temperature: 36.6 (C) / 97.8 (F) Weight: 296 lbs 04/06/2013 Blood Pressure 1: 142/90 Code: 8480-6 BMI: 40.3 Code: 64942-5 Heart Rate 1: 88 bpm Height: 6' Respiratory Rate: 20 bpm Temperature: 36 .6 (C) / 97.8 (F) Weight: 297 lbs 12/01/2012 Blood Pressure 1: 124/78 Code: 8480-6 BMI: 38.7 Code: 47570-9 Heart Rate 1: 76 bpm Height: 6' Respiratory Rate: 20 bpm Temperature: 37 .2 (C) / 98.9 (F) Weight: 285 lbs 08/04/2012 Blood Pressure 1: 128/80 Code: 8480-6 BMI: 38.2 Code: 78865-2 Heart Rate 1: 76 bpm Height: 6' Respiratory Rate: 20 bpm Temperature: 37 .0 (C) / 98.6 (F) Weight: 282 lbs 05/29/2012 Blood Pressure 1: 138/78 Code: 8480-6 BMI: 36.6 Code: 88610-8 Heart Rate 1: 66 bpm Height: 6' Temperature: 36.7 (C) / 98.1 (F) Weight: 270 lbs 05/25/2012 Blood Pressure 1: 128/72 Code: 8480-6 BMI: 39.9 Code: 07028-8 Heart Rate 1: 74 bpm Height: 6' Temperature: 36.1 (C) / 97.0 (F) Weight: 294 lbs 04/07/2012 Blood Pressure 1: 124/76 Code: 8480-6 BMI: 39.9 Code: 64599-3 Heart Rate 1: 72 bpm Height: 6' Respiratory Rate: 20 bpm Temperature: 36 .9 (C) / 98.5 (F) Weight: 294 lbs 12/16/2011 Blood Pressure 1: 128/80 Code: 8480-6 BMI: 40.8 Code: 02013-4 Heart Rate 1: 74 bpm Height: 6' Temperature: 36.6 (C) / 97.8 (F) Weight: 301 lbs 12/03/2011 Blood Pressure 1: 132/76 Code: 8480-6 BMI: 40.8 Code: 82048-9 Heart Rate 1: 68 bpm Height: 6' Respiratory Rate: 20 bpm Temperature: 36 .8 (C) / 98.2 (F) Weight: 301 lbs 08/29/2011 Blood Pressure 1: 140/68 Code: 8480-6 BMI: 40.8 Code: 16445-7 Heart Rate 1: 80 bpm Height: 6' Respiratory Rate: 20 bpm Temperature: 36 .4 (C) / 97.6 (F) Weight: 301 lbs 05/30/2011 Blood Pressure 1: 134/82 Code: 8480-6 BMI: 41.5 Code: 25669-2 Heart Rate 1: 76 bpm Height: 6' [...] 1: 126/72 Code: 8480-6 BMI: 41.2 Code: 94450-1 Heart Rate 1: 76 bpm Height: 6' [...] 1: 152/90 Code: 8480-6 BMI: 37.7 Code: 05062-4 Heart Rate 1: 92 bpm Height: 6'1" Temperature: 38.3 (C) / 101.0 (F) Weight : 286 lbs Functional Status No Functional Status data Reason For Visit Reason For Visit Effective Dates Notes follow up 08/30/2019 Discuss singulair th erapy follow up 08/10/2019 cellulitis 07/06/2019 follow up 05/10/2019 follow up 03/29/2019 [facility] fwup injection(s) 03/04/2019 follow up 01/05/2019 [...] dm Encounters Encounter Performer Location Codes Date ([id number]) OFFICE/OUTPATIENT VISIT EST Diagnosis: Chronic obstructive pulmonary disease, unspecified[ICD10: J44.9] Diagnosis: Essential (primary) hypertension[ICD10: I10] Diagnosis: Mixed hyperlipidemia[ICD10: E78.2] Diagnosis: Type 2 diabetes mellitus with hyperglycemia[ICD10: E11.65] Neela HYMAN DO [facility] CPT-4: 11199 08/30/2019 ([id number]) OFFICE/OUTPATIENT VISIT EST Diagnosis: Chronic obstructive pulmonary disease with (acute) exacerbation[ICD10: J44.1] Neela HYMAN DO [facility] CPT- 4: 12718 08/10/2019 ([id number]) OFFICE/OUTPATIENT VISIT EST Diagnosis: Sore on toe[ICD10: L98.9] Neela VASQUEZ DO [facility] CPT-4: 03926 07/06/2019 ([id number]) OFFICE/OUTPATIENT VISIT EST Diagnosis: Advanced chronic obstructive pulmonary disease[ICD10: J44.9] 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] Neela HYMAN DO [facility] CPT-4: 58474 05/10/2019 ([id number]) OFFICE/OUTPATIENT VISIT EST Diagnosis: Chronic obstructive pulmonary disease with (acute) exacerbation[ICD10: J44.1] Diagnosis: Hypokalemia[ICD10: E87.6] 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] Neela HYMAN DO [facility] CPT-4: 75929 03/29/2019 ([id number]) NURSE/OUTPATIENT VISIT EST Diagnosis: PNEUMOCOCCAL VACCINE[ICD10: Z23] Neela HYMAN DO [facility] CPT-4: 31834 03/04/2019 ([id number]) OFFICE/OUTPATIENT VISIT EST Diagnosis: Chronic obstructive pulmonary disease with (acute) exacerbation[ICD10: J44.1] Diagnosis: Other nonspecific abnormal finding of lung field[ICD10: R91.8] Neela HYMAN DO [facility] CPT-4: 22925 01/05/2019 ([id number]) OFFICE/OUTPATIENT VISIT EST Diagnosis: Solitary pulmonary nodule[ICD10: R91.1] 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] Diagnosis: Tinea corporis[ICD10: B35.4] Neela HYMAN [facility] CPT-4: 49740 12/09/2018 ([id number]) OFFICE/OUTPATIENT VISIT EST Diagnosis: COUGH[ICD10: R05] Diagnosis: Chronic obstructive pulmonary disease, unspecified[ICD10: J44.9] Diagnosis: Other disorders of lung[ICD10: J98.4] Diagnosis: Other nonspecific abnormal finding of lung field[ICD10: R91.8] Neela HYMAN [employer] [facility] CPT-4: 39357 11/24/2018 ([id number]) OFFICE/OUTPATIENT VISIT EST Diagnosis: Pneumonia, unspecified organism[ICD10: J18.9] Amita HYMAN [employer] [facility] CPT-4: 28129 09/16/2018 ([id number]) OFFICE/OUTPATIENT VISIT EST Diagnosis: Pneumonia, unspecified organism[ICD10: J18.9] Neela HYMAN [facility] CPT-4: 21066 09/03/2018 ([id number]) OFFICE/OUTPATIENT VISIT EST Diagnosis: Personal history of pneumonia (recurrent)[ICD10: Z87.01] Diagnosis: Cough[ICD10: R05] Diagnosis: Essential (primary) hypertension[ICD10: I10] Diagnosis: Type 2 diabetes mellitus with hyperglycemia[ICD10: E11.65] Amita MURILLO [employer] [facility] CPT-4: 92662 08/27/2018 OFFICE/OUTPATIENT VISIT EST Diagnosis: Pneumonia, unspecified organism[ICD10: J18.9] Diagnosis: Chronic obstructive pulmonary disease with (acute) exacerbation[ICD10: J44.1] Diagnosis: Other specified symptoms and signs involving the circulatory and respiratory systems[ICD10: R09.89] Diagnosis: Essential (primary) hypertension[ICD10: I10] Amita [employer] [facility] CPT-4: 61248 08/13/2018 OFFICE/OUTPATIENT VISIT EST Diagnosis: Pneumonia, unspecified organism[ICD10: J18.9] Diagnosis: Other specified symptoms and signs involving the circulatory and respiratory systems[ICD10: R09.89] Amita Cunningham [employer] [facility] CPT-4: 69959 08/11/2018 ([id number]) OFFICE/OUTPATIENT VISIT EST Diagnosis: Dyspnea, unspecified[ICD10: R06.00] Diagnosis: Chronic obstructive pulmonary disease with (acute) exacerbation[ICD10: J44.1] Diagnosis: Pneumonia, unspecified organism[ICD10: J18.9] Amita MIRZALINE JulissaMendez YENNI [facility] CPT-4: 45331 07/16/2018 ([id number]) OFFICE/OUTPATIENT VISIT EST Diagnosis: Acute bronchitis due to other specified organisms[ICD10: J20.8] Diagnosis: Cough[ICD10: R05] Amita MIRZALINE [employer]issaMendez [facility]ENNI [facility] T-4: 75188 07/13/2018 ([id number]) OFFICE/OUTPATIENT VISIT EST Diagnosis: Essential (primary) hypertension[ICD10: I10] Diagnosis: Chronic obstructive pulmonary disease, unspecified[ICD10: J44.9] Diagnosis: Type 2 diabetes mellitus with hyperglycemia[ICD10: E11.65] Diagnosis: Mixed hyperlipidemia[ICD10: E78.2] Neela Sergemelany STERLING Jul[employer]endez VIC[employer]E [employer] [facility] CPT-4: 69108 06/03/2018 ([id number]) OFFICE/OUTPATIENT VISIT EST Diagnosis: Chronic obstructive pulmonary disease, unspecified[ICD10: J44.9] Gely MIRZALINE Octavio HYMAN [employer] [facility] CPT-4: 57250 05/04/2018 ([id number]) OFFICE/OUTPATIENT VISIT EST Diagnosis: Essential (primary) hypertension[ICD10: I10] Diagnosis: Localized edema[ICD10: R60.0] Neela Yenni NEELA JulissaMendez YENNI [employer] [facility] CPT-4: 26403 03/03/2018 ([id number]) OFFICE/OUTPATIENT VISIT EST Diagnosis: Localized edema[ICD10: R60.0] Neela Sergegemmainna NEELA JulissaMendez YENNI [employer] [facility] CPT-4: 15376 02/17/2018 ([id number]) OFFICE/OUTPATIENT VISIT EST Diagnosis: FLU VACCINE[ICD10: Z23] Diagnosis: PNEUMOCOCCAL VACCINE[ICD10: Z23] Diagnosis: Type 2 diabetes mellitus without complications[ICD10: E11.9] Diagnosis: Mixed hyperlipidemia[ICD10: E78.2] Diagnosis: Essential (primary) hypertension[ICD10: I10] Diagnosis: Localized edema[ICD10: R60.0] Diagnosis: Chronic obstructive pulmonary disease, unspecified[ICD10: J44.9] Neela HYMAN [facility] CPT-4: 57529 02/10/2018 ([id number]) OFFICE/OUTPATIENT VISIT EST Diagnosis: Type 2 diabetes mellitus with hyperglycemia[ICD10: E11.65] Diagnosis: Mixed hyperlipidemia[ICD10: E78.2] Diagnosis: Essential (primary) hypertension[ICD10: I10] Diagnosis: Chronic obstructive pulmonary disease, unspecified[ICD10: J44.9] Diagnosis: Cutaneous abscess of back [any part, except buttock][ICD10: L02.212] Neela HYMAN [facility] CPT-4: 11946 11/05/2017 ([id number]) OFFICE/OUTPATIENT VISIT EST Diagnosis: Allergic urticaria[ICD10: L50.0] Gely HYMAN DO [facility] CPT-4: 94705 09/09/2017 ([id number]) OFFICE/OUTPATIENT VISIT EST Diagnosis: Generalized enlarged lymph nodes[ICD10: R59.1] Diagnosis: Acute gastritis without bleeding[ICD10: K29.00] Gely HYMAN [facility] CPT-4: 87293 08/07/2017 ([id number]) OFFICE/OUTPATIENT VISIT EST Diagnosis: Type 2 diabetes mellitus without complications[ICD10: E11.9] Diagnosis: Mixed hyperlipidemia[ICD10: E78.2] Diagnosis: Essential (primary) hypertension[ICD10: I10] Neela HYMAN [facility] CPT-4: 02325 08/04/2017 ([id number]) OFFICE/OUTPATIENT VISIT EST Diagnosis: Zoster without complications[ICD10: B02.9] Diagnosis: Acute sialoadenitis[ICD10: K11.21] Gely STERLING [employer] HYMAN [facility] CPT-4: 90379 06/04/2017 OFFICE/OUTPATIENT VISIT EST Diagnosis: Zoster without complications[ICD10: B02.9] Diagnosis: Acute sialoadenitis[ICD10: K11.21] Gely STERLING [employer] HYMAN [facility] CPT-4: 37553 06/02/2017 ([id number]) OFFICE/OUTPATIENT VISIT EST Diagnosis: Type 2 diabetes mellitus without complications[ICD10: E11.9] Diagnosis: Mixed hyperlipidemia[ICD10: E78.2] Diagnosis: Essential (primary) hypertension[ICD10: I10] Diagnosis: Chronic obstructive pulmonary disease, unspecified[ICD10: J44.9] Neela HYMAN DO [facility] CPT-4: 93932 05/05/2017 OFFICE/OUTPATIENT VISIT EST Diagnosis: Chronic obstructive pulmonary disease with acute lower respiratory infection[ICD10: J44.0] Diagnosis: Impacted cerumen, bilateral[ICD10: H61.23] Gely HYMAN [employer] [facility] CPT-4: 41239 04/10/2017 ([id number]) OFFICE/OUTPATIENT VISIT EST Diagnosis: FLU VACCINE[ICD10: Z23] Neela BUI [employer] [facility] CPT-4: 66783 03/28/2017 ([id number]) OFFICE/OUTPATIENT VISIT EST Diagnosis: Type 2 diabetes mellitus without complications[ICD10: E11.9] Diagnosis: Mixed hyperlipidemia[ICD10: E78.2] Diagnosis: Essential (primary) hypertension[ICD10: I10] Diagnosis: Chronic obstructive pulmonary disease, unspecified[ICD10: J44.9] Neela HYMAN [employer] [facility] CPT-4: 66574 02/03/2017 ([id number]) OFFICE/OUTPATIENT VISIT EST Diagnosis: Type 2 diabetes mellitus with hyperglycemia[ICD10: E11.65] Diagnosis: Mixed hyperlipidemia[ICD10: E78.2] Diagnosis: Essential (primary) hypertension[ICD10: I10] Diagnosis: Chronic obstructive pulmonary disease, unspecified[ICD10: J44.9] Neela HYMAN [employer] [facility] CPT-4: 60524 10/30/2016 ([id number]) NO CHARGE Diagnosis: Acute bronchitis, unspecified[ICD10: J20.9] Sammi Najera NEELA Octavio HYMAN [employer] [facility] CPT-4: 17192 08/30/2016 ([id number]) OFFICE/OUTPATIENT VISIT EST Diagnosis: Acute bronchitis, unspecified[ICD10: J20.9] Diagnosis: Other seasonal allergic rhinitis[ICD10: J30.2] Sammi HYMAN DO [facility] CPT-4: 36119 08/27/2016 ([id number]) OFFICE/OUTPATIENT VISIT EST Diagnosis: Type 2 diabetes mellitus without complications[ICD10: E11.9] Diagnosis: Mixed hyperlipidemia[ICD10: E78.2] Diagnosis: Essential (primary) hypertension[ICD10: I10] Neela HYMAN DO [facility] CPT-4: 23884 07/02/2016 ([id number]) OFFICE/OUTPATIENT VISIT EST Diagnosis: Acute bronchitis, unspecified[ICD10: J20.9] Sammi HYMAN DO [facility] CPT-4: 34197 06/14/2016 ([id number]) OFFICE/OUTPATIENT VISIT EST Diagnosis: Acute bronchitis, unspecified[ICD10: J20.9] Sammi HYMAN DO [facility] CPT-4: 29671 06/13/2016 ([id number]) OFFICE/OUTPATIENT VISIT EST Diagnosis: Essential (primary) hypertension[ICD10: I10] Neela HMYAN DO [facility] CPT-4: 19157 05/14/2016 ([id number]) OFFICE/OUTPATIENT VISIT EST Diagnosis: Essential (primary) hypertension[ICD10: I10] Neela HYMAN DO [facility] CPT-4: 49795 04/29/2016 ([id number]) OFFICE/OUTPATIENT VISIT EST Diagnosis: Unspecified abdominal pain[ICD10: R10.9] Diagnosis: Left lower quadrant pain[ICD10: R10.32] Diagnosis: Left upper quadrant pain[ICD10: R10.12] Diagnosis: Essential (primary) hypertension[ICD10: I10] Neela HYMAN DO [facility] CPT-4: 43072 04/22/2016 ([id number]) OFFICE/OUTPATIENT VISIT EST Diagnosis: Type 2 diabetes mellitus without complications[ICD10: E11.9] Diagnosis: Mixed hyperlipidemia[ICD10: E78.2] Diagnosis: Essential (primary) hypertension[ICD10: I10] Neela HYMAN DO [facility] CPT-4: 70133 04/01/2016 ([id number]) OFFICE/OUTPATIENT VISIT EST Diagnosis: Type 2 diabetes mellitus with hyperglycemia[ICD10: E11.65] Diagnosis: Mixed hyperlipidemia[ICD10: E78.2] Diagnosis: Essential (primary) hypertension[ICD10: I10] Neela MURILLO Octavio HYMAN DO [facility] CPT-4: 88473 11/30/2015 ([id number]) OFFICE/OUTPATIENT VISIT EST Diagnosis: Type 2 diabetes mellitus with diabetic neuropathy, unspecified[ICD10: E11.40] Diagnosis: Essential (primary) hypertension[ICD10: I10] Diagnosis: Mixed hyperlipidemia[ICD10: E78.2] Neela FRIEND ASHER HYMAN DO [facility] CPT-4: 33211 08/29/2015 ([id number]) OFFICE/OUTPATIENT VISIT EST Diagnosis: COUGH[ICD10: R05] Diagnosis: Wheezing[ICD10: R06.2] Diagnosis: Type 2 diabetes mellitus with diabetic neuropathy, unspecified[ICD10: E11.40] Neela MURILLO JulissaMendez YENNI ARTHUR [facility] CPT-4: 80264 08/14/2015 ([id number]) OFFICE/OUTPATIENT VISIT EST Diagnosis: Other seasonal allergic rhinitis[ICD10: J30.2] Diagnosis: Dyspnea, unspecified[ICD10: R06.00] Diagnosis: Wheezing[ICD10: R06.2] Sammi MURILLO Octavio HYMAN DO [facility] CPT-4: 22289 08/09/2015 ([id number]) OFFICE/OUTPATIENT VISIT EST Diagnosis: Essential (primary) hypertension[ICD10: I10] Diagnosis: Type 2 diabetes mellitus with hyperglycemia[ICD10: E11.65] Diagnosis: Mixed hyperlipidemia[ICD10: E78.2] Neela STERLING Octavio HYMAN [employer] [facility] CPT-4: 77398 05/22/2015 ([id number]) OFFICE/OUTPATIENT VISIT EST Diagnosis: 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] Diagnosis: - I - HYPERTENSION[ICD9: 401.9] Diagnosis: - I - HYPERLIPIDEMIA NEC/NOS[ICD9: 272.4] Diagnosis: Left hand paresthesia[ICD9: 782.0] Neela STERLING Julissa. YENNI [employer] [facility] CPT-4: 43662 02/13/2015 ([id number]) OFFICE/OUTPATIENT VISIT EST Diagnosis: HYPERLIPIDEMIA NEC/NOS[ICD9: 272.4] Diagnosis: 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] Neela HYMAN [facility] CPT-4: 22167 11/07/2014 ([id number]) OFFICE/OUTPATIENT VISIT EST Diagnosis: ALLERGIC RHINITIS[ICD9: 477.9] Diagnosis: WHEEZING[ICD9: 786.07] Neela Duarte [employer] [facility] CPT-4: 62348 10/04/2014 ([id number]) OFFICE/OUTPATIENT VISIT EST Diagnosis: BRONCHITIS, ACUTE[ICD9: 466.0] Diagnosis: WHEEZING[ICD9: 786.07] Loren Duarte [facility] CPT-4: 47871 09/22/2014 ([id number]) OFFICE/OUTPATIENT VISIT EST Diagnosis: DYSPNEA[ICD9: 786.09] Diagnosis: WHEEZING[ICD9: 786.07] Diagnosis: Arrhythmia[ICD9: 427.9] Loren BUI [facility] CPT-4: 10690 09/21/2014 ([id number]) OFFICE/OUTPATIENT VISIT EST Diagnosis: 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, 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] Diagnosis: - I - HYPERLIPIDEMIA NEC/NOS[ICD9: 272.4] Diagnosis: - I - HYPERTENSION[ICD9: 401.9] Neela Sergegemmainna NEELA Octavio HYMAN [facility] CPT-4: 68211 06/28/2014 OFFICE/OUTPATIENT VISIT EST Diagnosis: SINUSITIS, ACUTE[ICD9: 461.9] Diagnosis: OTITIS MEDIA NOS[ICD9: 382.9] Sarah Sunshine NEELA [facility] CPT-[facility]: 34024 06/10/2014 ([id number]) OFFICE/OUTPATIENT VISIT EST Diagnosis: 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] Diagnosis: - I - HYPERLIPIDEMIA NEC/NOS[ICD9: 272.4] Diagnosis: - I - HYPERTENSION[ICD9: 401.9] Neela MURILLO Octavio HYMAN [facility] CPT-4: 15296 03/29/2014 ([id number]) OFFICE/OUTPATIENT VISIT EST Diagnosis: 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] Diagnosis: - I - HYPERTENSION[ICD9: 401.9] Diagnosis: - I - HYPERLIPIDEMIA NEC/NOS[ICD9: 272.4] Diagnosis: Hand lesion[ICD9: 709.9] Neela MADRIGAL [facility] CPT-4: 11587 11/30/2013 ([id number]) OFFICE/OUTPATIENT VISIT EST Diagnosis: 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] Diagnosis: HYPERLIPIDEMIA NEC/NOS[ICD9: 272.4] Diagnosis: HYPERTENSION[ICD9: 401.9] Neela VASQUEZ [employer] [facility] CPT-4: 92732 08/03/2013 ([id number]) OFFICE/OUTPATIENT VISIT EST Diagnosis: DM W/O COMPLICATION TYPE II, 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] Diagnosis: HYPERTENSION[ICD9: 401.9] Diagnosis: HYPERLIPIDEMIA NEC/NOS[ICD9: 272.4] Neela GREGORIO SMendez ZHANG [employer] [facility] CPT-4: 96204 04/06/2013 ([id number]) OFFICE/OUTPATIENT VISIT EST Diagnosis: 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] Diagnosis: HYPERLIPIDEMIA NEC/NOS[ICD9: 272.4] Diagnosis: HYPERTENSION[ICD9: 401.9] Neela VASQUEZ [employer] [facility] CPT-4: 05274 12/01/2012 ([id number]) OFFICE/OUTPATIENT VISIT EST Diagnosis: 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] Diagnosis: HYPERTENSION[ICD9: 401.9] Diagnosis: HYPERLIPIDEMIA NEC/NOS[ICD9: 272.4] Neela ZHANG [employer] [facility] CPT-4: 83713 08/04/2012 ([id number]) OFFICE/OUTPATIENT VISIT EST Diagnosis: URINARY FREQUENCY[ICD9: 788.41] Neelasabina MIRZALINE Octavio HYMAN [facility] CPT-4: 99967 06/01/2012 OFFICE/OUTPATIENT VISIT EST Diagnosis: Agitation[ICD9: 307.9] Diagnosis: Frequent urination[ICD9: 788.41] Janet Jean Baptiste NEELA JulsisaMendez [facility] CPT-4: 99272 05/29/2012 OFFICE/OUTPATIENT VISIT EST Diagnosis: SINUSITIS, ACUTE[ICD9: 461.9] Diagnosis: OTALGIA[ICD9: 388.70] Neela MURILLO JulissaMendez [facility] CPT-4: 95946 05/25/2012 OFFICE/OUTPATIENT VISIT EST Diagnosis: DM W/O COMPLICATION TYPE II, 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] Diagnosis: HYPERTENSION[ICD9: 401.9] Diagnosis: HYPERLIPIDEMIA NEC/NOS[ICD9: 272.4] Neela GREGORIO SMendez [facility] CPT-4: 99857 04/07/2012 OFFICE/OUTPATIENT VISIT EST Diagnosis: FINGER INJURY[ICD9: 959.5] Janet Markel MURILLO JulissaMendez [facility] CPT-4: 50126 12/16/2011 ([id number]) OFFICE/OUTPATIENT VISIT EST Diagnosis: DM W/O COMPLICATION TYPE II, 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] Diagnosis: HYPERTENSION[ICD9: 401.9] Diagnosis: HYPERLIPIDEMIA NEC/NOS[ICD9: 272.4] Neela GREGORIO S. [facility] CPT-4: 41826 12/03/2011 ([id number]) OFFICE/OUTPATIENT VISIT EST Diagnosis: 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] Diagnosis: HYPERLIPIDEMIA NEC/NOS[ICD9: 272.4] Diagnosis: HYPERTENSION[ICD9: 401.9] Neela Cunningham [facility] CPT-4: 37239 08/29/2011 OFFICE/OUTPATIENT VISIT EST Diagnosis: 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] Diagnosis: HYPERLIPIDEMIA NEC/NOS[ICD9: 272.4] Diagnosis: HYPERTENSION[ICD9: 401.9] Neela MURILLO SMendez [facility] CPT-4: 00909 05/30/2011 OFFICE/OUTPATIENT VISIT EST Diagnosis: SKIN SENSATION DISTURB[ICD9: 782.0] Neela GREGORIO S. [facility] CPT-4: 27127 01/29/2011 OFFICE/OUTPATIENT VISIT EST Diagnosis: SKIN SENSATION DISTURB[ICD9: 782.0] Neela GREGORIO [facility] CPT-4: 67773 01/14/2011 OFFICE/OUTPATIENT VISIT EST [facility] CPT- 4: 18078 01/01/2011 OFFICE/OUTPATIENT VISIT EST Neela [facility] CPT- 4: 78583 11/29/2010 ([id number]) OFFICE/OUTPATIENT VISIT EST Neela HORAN SMendez [facility] CPT-4: 57615 08/28/2010 ([id number]) OFFICE/OUTPATIENT VISIT, EST Neela WILDE SMendez [facility] CPT-4: 71559 06/05/2010 ([id number]) OFFICE/OUTPATIENT VISIT, EST Neela WILDE S[facility] CPT-4: 06595 02/05/2010 ([id number]) OFFICE/OUTPATIENT VISIT, EST Neela WILDE SMendez [facility] CPT-4: 10634 10/09/2009 ([id number]) OFFICE/OUTPATIENT VISIT, EST Neela WILDE [facility] CPT-4: 91499 08/22/2009 Plan of Care Planned Activity Notes [...] : J44.1 08/10/2019 Appointment: Neela Hyman WPtel: [address] [place] [address] ACUTE ILLNESS 08/10/2019 Visit Diagnosis Plan: Sore on toe Discussion: Keep farhat an/dry Keflex Notify if worsens ICD-9 : 709.9 ICD-10 : L98.9 07/06/2019 Appointment: Neela Hyman WPtel: [address] [place] [address] ACUTE ILLNESS 07/06/2019 Patient Education: Makenzieir- OptimizeRClaudia Blue [phone] https://www.[employer]/sampleHonk/resources/getResource/61/8ao799il-68a1-1k14-66 Completed 07/06/2019 Visit Diagnosis Plan: Lymphoma involving lung Discussi on: Doing weekly lab and chemo ICD-9 : 202.82 ICD-10 : C85.99 05/10/2019 Visit Diagnosis Plan: Advanced chronic obstructive pul monary disease Discussion: Continue oxygen and pulmonary rehab Follow Up: 3 months ICD-9 : 496 ICD-10 : J44.9 05/10/2019 Appointment: Neela Hyman WPtel: [address] [place] [address] FOLLOW UP 05/10/2019 Appointment: Neeal Hyman WPtel: [address] [place] [address] he called 04/14/19-- he was at physical [...] : C85.99 03/29/2019 Appointment: Neela Hyman WPtel: [address] [place], [place] [address] Hospital Follow Up 03/29/2019 Appointment: Neela Hyman WPtel: [address] [place], [place] [phone] [place] INJECTION 03/04/2019 Visit Diagnosis Plan: Chronic obstructiv e pulmonary disease with (acute) exacerbation Discussion: Increase SVNS with duoneb to QID Prednisone taper ICD-9 : 491.21 ICD-10 : J44.1 01/05/2019 Visit Diagnosis Plan: Other nonspecific abnormal findi ng of lung field Discussion: Referral to pulmonology--will likely need bronchoscopy--path results discussed ICD-9 : 786.6 ICD-10 : R91.8 01/05/2019 Appointment: Neela Hyman WPtel: [address] [place] [address] FOLLOW UP 01/05/2019 Patient Education: prednisone- OptimizeRX Coupon [phone] https://www.[employer]/sampleHonk/resources/getResource/61/l9lh3165-622t-1a54-or Completed 01/05/2019 Care Plan: Referral Order SNOMED-CT : 30 [id number] Pending 01/05/2019 Appointment: Neela Hyman WPtel: [address] [place], [place] [phone] CANCELED 12/21/2018 Visit Diagnosis Plan: Solitary pulmonary nodule Discus emser: CT guided needle biopsy of RUL lung mass ICD-9 : 793.11 ICD-10 : R91.1 12/09/2018 Visit Diagnosis Plan: Tinea corporis Discussion: Diflu can--hold simvastatin and fenofibrate while taking ICD-9 : 110.5 ICD-10 : B35.4 12/09/2018 Appointment: Neela Hyman WPtel: [address] [place] [address] [place] FOLLOW UP 12/09/2018 Appointment: Gely Harp [address] NO SHOW 12/01/2018 Visit Diagnosis Plan: [...] : J98.4 11/24/2018 Appointment: Neela Hyman WPtel: [address] [place] [address] FOLLOW UP 11/24/2018 Care Plan: PET IMAGE FULL BODY LOINC : 4 2711-2 Pending 11/24/2018 Appointment: Neela Hyman WPtel: [address] [place] [address] [place] Consult 09/21/2018 Visit Diagnosis Plan: Pneumonia, [...] J18.9 09/16/2018 Appointment: Amita Henderson [address] [place] [address] [place] FOLLOW UP 09/16/2018 Visit Diagnosis Plan: Pneumonia, unspecified organism Discussion: Clinically patient feels and looks much better but need CT scan of chest due to ongoing round pneumonia in association with his known lymphoma ICD-9 : 486 ICD-10 : J18.9 09/03/2018 Appointment: Neela Hyman WPtel: [address] [place], [place] [address] [place] FOLLOW UP 09/03/2018 Care Plan: CT [...] ICD-10 : I10 08/27/2018 Appointment: Amita Henderson [facility] [id number] FO[facility] UP 08/27/2018 Visit Diagnosis Plan: Chronic [...] ICD-10 : R09.89 08/13/2018 Appointment: Amita Henderson [address] [place], [place] [id number] [facility] FOLLOW UP 08/13/2018 Appointment: Amita Henderson [address] [place], [place] [address] CANCELED 08/13/2018 Patient Education: prednisone- Opt[employer]RX Coupon [phone] https://www.[employer]/sampleHonk/resources/getResource/61/[email or web address] Completed 08/13/2018 Visit Diagnosis Plan: Other specified [...] ICD-10 : J18.9 08/11/2018 Appointment: Amita Henderson [address] [place], [place] [phone] ACUTE ILLNESS 08/11/2018 Care Plan: CHEST X-RAY 2VW FRONTAL&LATL LOINC : 66055-9 Pending 07/20/2018 Visit Diagnosis Plan: Dyspnea, unspecified Discussion: CXR- to be completed at the hospital. Will call with results and any adjustments in plan. Solumedrol 125 administered in clinic Prednisone 20 mg BID x 5 days- start tomorrow ICD-9 : 786.09 ICD-10 : R06.00 07/16/2018 Appointment: Amita Henderson [address] [place] [address] ACUTE ILLNESS 07/16/2018 Patient Education: prednisone- OptimizeRX Coupon [phone] https://www.[employer]/samplemd/resources/getResource/61/95n7i8vj-fj42-3an5-t3 Completed 07/16/2018 Visit Diagnosis Plan: Acute bronchitis due to other sp ecified organisms Discussion: Kenalog 40 mg IM administered in clinic. Doxycycline called into [facility]. Take as directed. Continue nebulizer and Trelegy. Follow up if symptoms are not improving with treatment regimen. Patient states understanding of all instruction. ICD-9 : 466.0 ICD-10 : J20.8 07/13/2018 Appointment: Amita Henderson [facility]0 [facility] ACUTE ILLNESS 07/13/2018 Patient Education: doxycycline hyclate- OptimizeRX Cou saritha [phone] https://www.[employer]/samplemd/resources/getResource/61/7x192u93-1w1h-8791-0p Completed 07/13/2018 Care Plan: [place] : [address]-6 Pending 07/13/2018 Care Plan: CBC Pending 07/13/2018 Care Plan: A1C HPLC LOINC : 81528-9 Pending 07/13/2018 Visit Diagnosis Plan: Mixed hyperlipidemia [...] I10 06/03/2018 Appointment: Neela Hyman WPtel: [phone] [facility] FOLLOW UP 06/03/2018 Visit Diagnosis Plan: Chronic [...] ICD-10 : J44.9 05/04/2018 Appointment: Gely Harp [address] [place] [address] ACUTE ILLNESS 05/04/2018 Visit Diagnosis Plan: Localized edema Discussion: Cont inue lasix and potassium at every other day Recheck lab and fwup in 3mos Follow Up: 3 months ICD-9 : 782.3 ICD-10 : R60.0 03/03/2018 Appointment: Neela Hyman WPtel: [address] [place] [address] FOLLOW UP 03/03/2018 Patient Education: Patient Medication Summary Completed 03/03/2018 Visit Diagnosis Plan: Localized edema Discussion: Finch ge lasix and potassium to every other day Check Chem 7 in 2 weeks and fwup ICD-9 : 782.3 ICD-10 : R60.0 02/17/2018 Appointment: Neela Hyman WPtel: [address] [place] [address] FOLLOW UP 02/17/2018 Patient Education: Patient Medication [...] : E78.2 02/10/2018 Appointment: Neela Hyman WPtel: [address] [place] [address] [place] FOLLOW UP 02/10/2018 Patient Education: Patient [...] I10 11/05/2017 Appointment: [facility]el[facility] [facility] [facility] 11/05/2017 Patient Education: Patient Medication Summary Completed 11/05/2017 Patient Education: Patient Medication Summary Completed 11/03/2017 Care Plan: [place] : [address]-4 Pending 11/03/2017 Care Plan: LIPID PANEL LOINC : 09340-0 Pending 11/03/2017 Care Plan: CBC Pending 11/03/2017 Care Plan: A1C HPLC LOINC : 12642-9 Pending 11/03/2017 Visit Diagnosis Plan: Allergic urticaria [...] : L50.0 09/09/2017 Appointment: [facility] [facility] 09/09/2017 Patient Education: Patient Medication [...] ICD-10 : K29.00 08/07/2017 Appointment: Gely Harp [address] [place] [address] Follow Up 08/07/2017 Patient Education: Patient Medication Summary Completed 08/07/2017 Visit Diagnosis Plan: Essential (primary) hypertension Discussion: Increase Cardizem CD to 360mg daily ICD-9 : 401.9 ICD-10 : I10 08/04/2017 Visit Diagnosis Plan: Type 2 diabetes mellitus without complications Discussion: Accuchecks daily Lab discussed Continue current meds ICD-9 : 250.00 ICD-10 : E11.9 08/04/2017 Appointment: Neela Hyman WPtel: [phone] [facility] FOLLOW UP 08/04/2017 Patient Education: Patient Medication Summary Completed 08/04/2017 Patient Education: Patient Medication Summary Completed 07/31/2017 Care Plan: [place] : [address]-9 Pending 07/31/2017 Care Plan: ASSAY THYROID STIM HORMONE Pen ding 07/31/2017 Care Plan: LIPID PANEL LOINC : 96425-5 Pending 07/31/2017 Care Plan: CBC Pending 07/31/2017 Care Plan: A1C HPLC LOINC : 72420-4 Pending 07/31/2017 Patient Education: Patient Medication Summary Completed 06/19/2017 Patient Education: Patient Medication Summary Completed 06/09/2017 Care Plan: CT SOFT TISSUE NECK W/[place] : [address]-8 Pending 06/09/2017 Visit Diagnosis Plan: Zoster without [...] ICD-10 : K11.21 06/04/2017 Appointment: Gely Harp [address] [place] [address] ACUTE ILLNESS 06/04/2017 Patient Education: Patient Medication [...] : B02.9 06/02/2017 Appointment: Gely Harp [address] [place], [place] [phone] ACUTE ILLNESS 06/02/2017 Patient Education: Patient Medication [...] : E78.2 05/05/2017 Appointment: Neela Hyman WPtel: [facility] [place] [phone] FOLLOW UP 05/05/2017 Patient Education: Patient Medication Summary Completed 05/05/2017 Patient Education: Patient Medication Summary Completed 05/01/2017 Care Plan: A1C HPLC [facility] : 97251-7 Pending 05/01/2017 Visit Diagnosis Plan: Chronic obstructiv [...] ICD-10 : H61.23 04/10/2017 Appointment: Gely Harp [address] [place] [address] ACUTE ILLNESS 04/10/2017 Patient Education: Patient Medication Summary Completed 04/10/2017 Appointment: Neela Hyman WPtel: [facility]3 [facility] INJECTION 03/28/2017 Patient Education: Patient Medication Summary [...] ICD-10 : I10 02/03/2017 Appointment: Neela Hyman: [facility] [facility] FOLLOW UP 02/03/2017 Patient Education: Patient Medication Summary Completed 02/03/2017 Patient Education: Patient Medication Summary Completed 01/30/2017 Care Plan: [place] : [address]-5 Pending 01/30/2017 Care Plan: LIPID PANEL LOINC : 92462-3 Pending 01/30/2017 Care Plan: CBC Pending 01/30/2017 Care Plan: A1C HPLC LOINC : 84037-4 Pending 01/30/2017 Care Plan: ASSAY OF PSA [...] : J44.9 10/30/2016 Appointment: Neela Hyman WPtel: [address] [place], [place] [phone] [place] 6/6 lm ~sl 6/ confirmed~sl FOLLOW UP 11/2016 Patient Education: Patient Medication Summary Completed 10/30/2016 Patient Education: Patient Medication Summary Completed 10/24/2016 Visit Diagnosis Plan: Acute bronchitis, unspecified Di scussion: Patient sounds and looks much improved Continue current regimen Keep appt with Dr Levi for Friday Follow up PRN ICD-9 : 466.0 ICD-10 : J20.9 08/30/2016 Appointment: Sammi Najera [address] [place], [place] [address] [place] 4/6 rang and rang rang 4/7 [...] : J20.9 08/27/2016 Appointment: Sammi Najera [address] [facility] FOLLOW UP 08/27/2016 Patient Education: Patient Medication Summary Completed 08/27/2016 Care Plan: Referral Order SNOMED-CT : 30 [id number] Pending 08/27/2016 Visit Diagnosis Plan: Type 2 [...] : E78.2 07/02/2016 Appointment: Neela Hyman WPtel: [address] [place], [place] [phone] 07/01 rang and rang`sl FOLLOW UP 7 Patient Education: Patient Medication Summary Completed 07/02/2016 Patient Education: Patient Medication Summary Completed 06/27/2016 Care Plan: LIPID PANEL LOINC : 83480-2 Pending 06/27/2016 Care Plan: [place] : [address]-6 Pending 06/27/2016 Care Plan: A1C HPLC LOINC : 11774-1 Pending 06/27/2016 Visit Diagnosis Plan: Acute bronchitis, [...] ICD-10 : J20.9 06/14/2016 Appointment: Sammi Najera [address] [place], [place] [phone] FOLLOW UP 06/14/2016 Patient Education: Patient Medication [...] ICD-10 : J20.9 06/13/2016 Appointment: Sammi Najera [address] [place] [address] ACUTE ILLNESS 06/13/2016 Patient Education: Patient Medication Summary Completed 06/13/2016 Care Plan: CHEST X-RAY 2VW FRONTAL&LATL LOINC : 86304-2 Pending 06/13/2016 Visit Plan: Increase metoprolol to 100mg po BID BP readings and BP check in 1month 05/14/2016 Appointment: Neela Hyman WPtel: [address] [place] [address] 05/13 rang and rang`sl FOLLOW UP 6 Patient Education: Patient Medication Summary Completed 05/14/2016 Visit Plan: Increase metoprolol to 50mg BID BP check in 1 week f/u BP appt 2 weeks consider musculoskeletal if pain returns 04/29/2016 Appointment: Neela Hyman WPtel: [address] [place], [place] [address] 04/25 confimred~sl FOLLOW UP 04/29/2016 Patient Education: Patient Medication Summary Completed 04/29/2016 Visit Plan: Stat CT scan of abdomen/pelv is to look for stone Hydrate and use tramadol prn Increase metoprolol to 25mg po BID Will see urology pending CT scan results 04/22/2016 Appointment: Neela Hyman WPtel: [address] [place], [place] [address] 04/17 confirmed-sp ACUTE ILLNESS 04/22/2016 Patient Education: [...] flu shot 04/01/2016 Appointment: Neela Hyman WPtel: [address] [place] [address] FOLLOW UP 04/01/2016 Patient Education: Patient Medication Summary Completed 04/01/2016 Patient Education: [facility] - Saving AutoInj - 18-64 - Dynamic Heber l ID Completed 04/01/2016 Patient Education: Patient Medication Summary Completed 03/28/2016 Care Plan: A1C HPLC LOINC : 92145-3 Pending 03/28/2016 Care Plan: [place] : [address]-9 Pending 03/28/2016 Visit Plan: Lab discussed Continue curre nt meds Accuchecks daily 11/30/2015 Appointment: Neela Hyman WPtel: [address] [place], [place] [phone] / confirmed~sl FOLLOW UP 11/30/2015 Patient Education: Patient Medication Summary Completed 11/30/2015 Appointment: Neela Hyman WPtel: [address] [place], [place] [phone] RESCHEDULED 11/28/2015 Patient Education: Patient Medication Summary Completed 11/23/2015 Care Plan: [place] : [address]-9 Pending 11/23/2015 Care Plan: LIPID PANEL LOINC : 64849-5 Pending 11/23/2015 Care Plan: CBC Pending 11/23/2015 Care Plan: A1C HPLC LOINC : 12273-5 Pending 11/23/2015 Visit Plan: Lab discussed Accuchecks richard ly Continue current meds Cymbalta helping with feet and mood 08/29/2015 Appointment: Neela Hyman WPtel: [phone] [facility] FOLLOW UP 08/29/2015 Patient Education: Patient Medication Summary Completed 08/29/2015 Visit Plan: Check CXR Stop all steroids and steroid inhalers Use SVN with but change to duoneb Add singulair for allergy etiology Change fluoxetine to cymbalta 60mg daily Viagra samples given to try prn--warned of no nitrates 08/14/2015 Appointment: Neela Hyman WPtel: [phone] [facility] lm to reschedule ~sl 07/27 lm ~sl 08/09 busy 08/10 fer rosales-sp Annual Well Visit 08/14/2015 Patient Education: Patient Medication Summary Completed 08/14/2015 Care Plan: CHEST X-RAY 2VW FRONTAL&LATL LOINC : 21684-3 Ordered 08/14/2015 Visit Plan: Decadron 8mg given [...] improving as expected 08/09/2015 Appointment: Sammi Najera [address] [facility] ER Follow UP 08/09/2015 Patient Education: [...] it 05/22/2015 Appointment: Neela Hyman WPtel: [address] [place], [place] [address] 05/17 confirmed~sl FOLLOW UP 05/22/2015 Patient Education: Patient Medication Summary Completed 05/22/2015 Patient Education: Patient Medication Summary Completed 05/15/2015 Visit Plan: Obtain EMGs done at [facility] from when fractured left arm Lab discussed Accuchecks daily 02/13/2015 Appointment: Neela Hyman WPtel: [address] [place], [place] [address] 02/10 confrimed FOLLOW UP 02/13/2015 Patient Education: Patient Medication Summary Completed 02/13/2015 Patient Education: Patient Medication Summary Completed 02/09/2015 Visit Plan: discussed lab add fenofibrat e 134mg po daily recheck fasting lab in 3 months, CBC, CMP, Lipids, hgb AIC 11/07/2014 Appointment: Neela Hyman WPtel: [address] [place], [place] [phone] 11/04 appt confirmed cn FOLLOW UP 015 Patient Education: Patient Medication Summary Completed 11/07/2014 Patient Education: Patient Medication Summary Completed 11/03/2014 Visit Plan: Continue loratadine 10mg richard ly Notify if symptoms return 10/04/2014 Appointment: Neela Hyman WPtel: [address] [place], [place] [address] confirmed on 10/03 at 2:42pm FOLLOW UP 09/23 Patient Education: Patient Medication Summary Completed 10/04/2014 Appointment: Neela Hyman WPtel: [address] [place], [place] [phone] ACUTE ILLNESS 09/28/2014 Appointment: Loren Garza WPtel: [address] [place], [place] [phone] FOLLOW UP 09/22/2014 Patient Education: Patient Medication Summary Completed 09/22/2014 Appointment: Loren Garza WPtel: [address] [place], [place] [address] ACUTE ILLNESS 09/21/2014 Patient Education: Patient Medication Summary Completed 09/21/2014 Patient Education: [facility] - Saving AutoInj - 18+ - Dynamic Portal ID Completed 09/21/2014 Visit Plan: Lab discussed Continue daily accuchecks Continue current meds 06/28/2014 Appointment: Neela Hyman WPtel: [address] [place], [place] [phone] FOLLOW UP 06/28/2014 Patient Education: Patient Medication Summary Completed 06/28/2014 Patient Education: Patient Medication Summary Completed 06/23/2014 Appointment: Sarah Sunshine WPtel: [address] [place], [place] [phone] ACUTE ILLNESS 06/10/2014 Patient Education: Patient Medication Summary Completed 06/10/2014 Patient Education: [facility] - Saving AutoInj - 18+ - Dynamic Portal ID Completed 06/10/2014 Visit Plan: Lab discussed Continue daily accuchecks Continue current meds 03/29/2014 Appointment: Neela Hyman WPtel: [address] [place], [place] [phone] FOLLOW UP 03/29/2014 Patient Education: Patient Medication Summary Completed 03/29/2014 Patient Education: Patient Medication Summary Completed 03/23/2014 Visit Plan: Lab discussed Continue curre nt meds and accuchecks See surgery for removal of hand lesion 11/30/2013 Appointment: Neela Hyman WPtel: [address] [place], [place] [phone] 11/29 no answer FOLLOW UP 11/30/2013 Patient Education: Patient Medication Summary Completed 11/30/2013 Visit Plan: Lab discussed Continue curre nt meds 08/03/2013 Appointment: Neela Hyman WPtel: [address] [place], [place] [phone] [place] FOLLOW UP 08/03/2013 Patient Education: Patient Medication Summary Completed 08/03/2013 Visit Plan: Lab Discussed Will continue current meds and pt will get back on diet/exercise Check lab in 4mos and fwup 04/06/2013 Appointment: Neela Hyman WPtel: [address] [place] [address] FOLLOW UP 04/06/2013 Patient Education: Patient Medication Summary Completed 04/06/2013 Visit Plan: Lab discussed Continue daily accuchecks 12/01/2012 Appointment: Neela Hyman WPtel: [address] [place] [address] 11/30 no answer FOLLOW UP 12/01/2012 Patient Education: Patient Medication Summary Completed 12/01/2012 Visit Plan: Continue current meds and da russell accuchecks Lab discussed 08/04/2012 Appointment: Neela Hyman WPtel: [address] [place] [address] FOLLOW UP 08/04/2012 Patient Education: Patient Medication Summary Completed 08/04/2012 Appointment: Neela Hyman WPtel: [address] [place] [address] UA 06/01/2012 Patient Education: Patient Medication Summary Completed 06/01/2012 Appointment: Janet Jean Baptiste WPtel: [address] [place] [address] FOLLOW UP 05/29/2012 Patient Education: Patient Medication Summary Completed 05/29/2012 Visit Plan: pt states Dr. Hyman told h is to increase his Prozac dose while she was talking to her at [facility]. Discussed that pt. should not increase or decrease dosage without 's knowledge. Pt. will seek hearing test here in town at the hearing aid place on [address]. Discussed that ear pain is likely caused by sinus pressure. Pt. will notify if no improvement. 05/25/2012 Appointment: Janet Jean Baptiste WPtel: [address] [place], [place] [id number] ACUTE ILLNESS 05/25/2012 Patient Education: Patient Medication Summary Completed 05/25/2012 Visit Plan: Continue current meds Contin ue daily accuchecks but alternate times Increase fish oil to 3gm daily 04/07/2012 Appointment: Neela Hyman WPtel: [address] [place] [address] 04/06 FOLLOW UP 04/07/2012 Patient Education: Patient Medication Summary Completed 04/07/2012 Appointment: Janet Jean Baptiste WPtel: [address] [place] [address] ACUTE ILLNESS 12/16/2011 Patient Education: Patient Medication Summary Completed 12/16/2011 Visit Plan: Increase 12/03/2011 Appointment: Neela Hyman WPtel: [address] [place] [address] FOLLOW UP 12/03/2011 Patient Education: Patient Medication Summary Completed 12/03/2011 Visit Plan: Continue current meds Contin ue accuchecks 08/29/2011 Appointment: Neela Hyman WPtel: [address] [place] [address] FOLLOW UP 08/29/2011 Patient Education: Patient Medication Summary Completed 08/29/2011 Visit Plan: Continue current meds except restart zocor 05/30/2011 Appointment: Neela Hyman WPtel: [address] [place] [address] FOLLOW UP 05/30/2011 Patient Education: Patient Medication Summary Completed 05/30/2011 Visit Plan: Continue tennis elbow strap May go back to weight-lifing--light weigts every other day 01/29/2011 Appointment: Neela Hyman WPtel: [address] [place] [phone] [place] FOLLOW UP 01/29/2011 Patient Education: Patient Medication Summary Completed 01/29/2011 Visit Plan: Continue tennis elbow strap and anti-inflammatories 01/14/2011 Appointment: Neela Hyman WPtel: [address] [place], [place] [id number] FOLLOW UP 01/14/2011 Appointment: Janet Jean Baptiste WPtel: [address] [place], [place] [phone] NEW PATIENT 01/14/2011 Patient Education: Patient Medication Summary Completed 01/14/2011 Appointment: Neela Hyman WPtel: [address] [place], [place] [phone] FOLLOW UP 01/08/2011 Appointment: Neela Hyman WPtel: [address] [place], [place] [id number] FOLLOW UP 01/01/2011 Appointment: Neela Hyman WPtel: [address] [place] [address] UA 01/01/2011 Patient Education: Patient Medication Summary [...] 11/29/2010 Appointment: Janet Jean Baptiste WPtel: [address] [place] [address] ACUTE ILLNESS 11/29/2010 Patient Education: Patient Medication Summary Completed 11/29/2010 Visit Plan: Cont current meds Check CMP, Lipids, HbA1C 08/28/2010 Appointment: Neela Hyman WPtel: [address] [place], [place] [phone] FOLLOW UP 08/28/2010 Patient Education: Patient Medication Summary Completed 08/28/2010 Visit Plan: Cont current meds and accuch ecks Add Zocor 40mg q HS Check Lipids and HbA1C in 3mos 06/05/2010 Appointment: Neela Hyman WPtel: [address] [place], [place] [phone] FOLLOW UP 06/05/2010 Patient Education: Patient Medication Summary Completed 06/05/2010 Visit Plan: Check Lipids and HbA1C 02/05/2010 Appointment: Neela Hyman WPtel: [address] [place], [place] [phone] [place] FOLLOW UP 02/05/2010 Patient Education: Patient Medication Summary Completed 02/05/2010 Visit Plan: HbA1C in 3mos. Continue Accu checks BID alternating times. Check HbA1C, CMP, Lipids 10/09/2009 Appointment: Neela Hyman WPtel: [address] [place], [place] [phone] FOLLOW UP 10/09/2009 Patient Education: Patient Medication Summary Completed 10/09/2009 Visit Plan: Saline nasal flushes prn. Ty lenol/Motrin prn headache. Notify if persists/symptoms worsening. 08/22/2009 Appointment: Neela Hyman WPtel: [address] [place], [place] [id number] ACUTE ILLNESS 08/22/2009 Patient Education: Patient Medication Summary Completed 08/22/2009 Referral: Aubrey Rand WPtel: [address] [place], [place] [phone] [place] Office will verfy his insurance then they will contact patient Completed Referral: Shahbaz Brennan WPtel: 20[address] [facility] 201 [id number] [place] Referral Completed Referral: Ion Levi [address] [place] [address] C&D [id number] [place] Referral Appointment Requested Referral: Ion Levi [address] [facility] C&D [id number] [place] Referral Appointment Requested Instructions Comment . [...] with it . Obtain EMGs done at [place] from when fractured left arm Lab discussed [...] town at the hearing aid place on [address]. Discussed that ear pain is likely caused [...]
--- OUTSIDE RECORDS SUMMARY | 2019-12-09 09:05 | XMS REPORT | CCD ---
Author Author Michael Hyman D.O. 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 [employer] Name Role Phone Neela Hyman D.O., PP Unavailable CCM Unavailable Summary Purpose Interface Exchange Insurance Providers Payer name Policy type / Coverage type Covered republican ID Effective Begin Date Effective End Date ABS FOR [employer] Bill Commercial Insurance [id number] Unknown Family History Family History data not found Social History Social History Element Codes Description Effective Dates Marital status Unknown 05/30/[address]: 6134902 Former smoker quit 25 years ago 01/01/2011 [...] Fill Instructions Lasix 40 mg tablet RxNorm: 021396 1 Tablet(s) Oral QD 08/24/201910/25 Active duloxetine 60 mg capsule,delayed release RxNorm: 283124 TAKE ONE CAPSULE BY MOUTH EVERY DAY 08/16/2019 02/11/2020 Active metoprolol succinate ER 100 mg tablet,extended release 24 hr RxNorm: 712604 TAKE ONE TABLET BY MOUTH TWICE A DAY 08/16/2019 05/11/2020 Active potassium chloride ER 20 mEq tablet,extended release RxNorm: 167389 1 Tablet(s) Oral two times a day 07/22/2019 10/19/2019 Active metformin 500 mg tablet RxNorm: 938358 2 Tablet(s) Oral two afshan es a day 07/13/2019 09/11/2019 Active Singulair 10 mg tablet RxNorm: 931836 TAKE ONE TABLET BY MOUTH EVERY EVENING 07/06/2019 01/02/2020 Active Reselected prescribe r from PEG [facility]HER to [facility] Keflex 500 mg capsule RxNorm: 581718 1 Capsule(s) Oral three ti mes a day 07/06/2019 07/13/2019 Inactive Singulair 10 mg tablet RxNorm: 241680 TAKE ONE TABLET BY MOUTH EVERY EVENING 06/22/2019 07/05/2019 Inactive Reselected prescribe r from PEG MAHER to [facility] Zocor 40 mg tablet RxNorm: 339377 TAKE ONE TABLET BY M OUTH EVERY NIGHT AT BEDTIME 06/21/2019 11/17/2019 Active MagOx 400 mg (241.3 mg magnesium) tablet RxNorm: 415791 1 Table t(s) Oral QD 06/21/2019 08/20/2019 Inactive diltiazem ER 360 mg capsule,24 hr,extended release RxNorm: 8 57592 TAKE ONE CAPSULE BY MOUTH AT BEDTIME -REPLACES 300MG 05/17/2019 11/12/2019 Active MagOx 400 mg (241.3 mg magnesium) tablet RxNorm: 790466 1 Table t(s) Oral QD 04/26/2019 06/20/2019 Inactive Lasix 40 mg tablet RxNorm: 621196 40 MG PO DAILY 04/12/2019 08/23/2019 Inactive Benicar 40 mg tablet RxNorm: 283734 1 Tablet(s) Oral QD 03/29/2019 Active potassium chloride ER 20 mEq tablet,extended release RxNorm: 513635 1 Tablet(s) Oral two times a day 03/29/2019 06/27/2019 Inactive potassium chloride ER 20 mEq tablet,extended release RxNorm: 388226 1 Tablet(s) Oral QD 03/29/2019 03/28/2019 Inactive Benicar 40 mg tablet RxNorm: 701667 1 Tablet(s) Oral QD 03/29/2019 Inactive MagOx 400 mg (241.3 mg magnesium) tablet RxNorm: 378386 1 Table t(s) Oral QD 03/29/2019 04/25/2019 Inactive metformin 500 mg tablet RxNorm: 209223 2 Tablet(s) Oral two afshan es a day 03/29/2019 07/12/2019 Inactive fenofibrate micronized 134 mg capsule RxNorm: 012714 TA KE ONE CAPSULE BY MOUTH EVERY DAY 03/05/2019 08/31/2019 Active duloxetine 60 mg capsule,delayed release RxNorm: 059087 1 Capsu le(s) PO QD 01/28/2019 07/26/2019 Inactive Trelegy Ellipta 100 mcg-62.5 mcg-25 mcg powder for inhalatio n RxNorm: 0295333 1 Puff(s) INH QD 01/06/2019 12/31/2019 Active 90 day supply prednisone 20 mg tablet RxNorm: 169127 1 Tablet(s) PO T ID for 3 days then 1 po BID for 3 days then 1 po daily for 3 days 01/05/2019 03/28/2019 Inacti ve metformin ER 1,000 mg tablet,extended release 24hr RxNorm: 1 739220 TAKE TWO TABLETS (1000MG) BY MOUTH TWO TIMES A DAY 12/22/2018 07/13/2019 Inacti ve Diflucan 100 mg tablet RxNorm: 322806 1 Tablet(s) PO QD 12/09/2018 Inactive prednisone 20 mg tablet RxNorm: 999497 1 Tablet(s) PO B ID for 4 days then 1 po daily for 4 days 11/24/2018 01/04/2019 Inactive albuterol sulfate 2.5 mg/3 mL (0.083 %) solution for n ebulization RxNorm: 596974 3 Milliliter(s) INH ONE VIAL VIA NEBULIZER EVERY 4 HOURS 019 07/21/2019 Inactive [AttnRPh: Saving apply/adjudicate RxGRP: SG20 RxBIN:[id number] RxPCN: ID#:[id number]] Trelegy Ellipta 100 mcg-62.5 mcg-25 mcg powder for inhalatio n RxNorm: 5286597 1 Puff(s) INH QD 10/27/2018 01/06/2019 Inactive 90 day supply diltiazem ER 360 mg capsule,24 hr,extended release RxNorm: 8 83456 TAKE ONE CAPSULE BY MOUTH AT BEDTIME -REPLACES 300MG 10/13/2018 04/10/2019 Inactive metoprolol succinate ER 100 mg tablet,extended release 24 hr RxNorm: 752952 TAKE ONE TABLET BY MOUTH TWICE A DAY 10/13/2018 07/09/2019 Inactive Trelegy Ellipta 100 mcg-62.5 mcg-25 mcg powder for inhalatio n RxNorm: 4097961 INHALE ONE PUFF ONCE DAILY 09/07/2018 10/27/2018 Inactive Levaquin 750 mg tablet RxNorm: 900615 1 Tablet(s) PO QD 09/07/2018 Inactive Levaquin 750 mg tablet RxNorm: 990108 1 Tablet(s) PO QD 09/07/2018 Inactive prednisone 20 mg tablet RxNorm: 476127 2 Tablet(s) PO QAM 08/13/2018 08/19/2018 Inactive Levaquin 500 mg tablet RxNorm: 181988 1 Tablet(s) PO QD 08/11/2018 Inactive fenofibrate micronized 134 mg capsule RxNorm: 718222 TA KE ONE CAPSULE BY MOUTH EVERY DAY 08/10/2018 02/05/2019 Inactive prednisone 20 mg tablet RxNorm: 422375 1 Tablet(s) PO BID 07/16/2018 07/20/2018 Inactive doxycycline hyclate 100 mg capsule RxNorm: 3021861 1 Capsule(s) PO BID 07/13/2018 07/22/2018 Inactive duloxetine 60 mg capsule,delayed release RxNorm: 302381 TAKE ONE CAPSULE BY MOUTH ONCE A DAY 07/08/2018 01/28/2019 Inactive Lasix 40 mg tablet RxNorm: 679216 1 TABLET(S) PO QAM 06/08/201809/05 Inactive potassium chloride ER 20 mEq tablet,extended release(p art/cryst) RxNorm: 6969805 1 TABLET(S) PO QD 06/08/2018 09/05/2018 Inactive metformin ER 1,000 mg tablet,extended release 24hr RxNorm: 1 171726 TAKE TWO TABLETS (1000MG) BY MOUTH TWO TIMES A DAY 06/01/2018 11/27/2018 Inacti ve Benicar HCT 40 mg-25 mg tablet RxNorm: 774438 TAKE ONE TABLET BY MOUTH ONCE DAILY 05/11/2018 03/28/2019 Inactive Zocor 40 mg tablet RxNorm: 555004 TAKE ONE TABLET BY M OUTH EVERY NIGHT AT BEDTIME 05/11/2018 06/20/2019 Inactive Trelegy Ellipta 100 mcg-62.5 mcg-25 mcg powder for inhalatio n RxNorm: 4541310 1 PUFF(S) INH QD 04/06/2018 07/04/2018 Inactive diltiazem ER 360 mg capsule,24 hr,extended release RxNorm: 8 66255 1 Capsule(s) PO QHS replaces 300mg dose 03/30/2018 09/25/2018 Inactive Trelegy Ellipta 100 mcg-62.5 mcg-25 mcg powder for inhalatio n RxNorm: 7087860 1 Puff(s) INH QD 02/24/2018 02/23/2018 Inactive Trelegy Ellipta 100 mcg-62.5 mcg-25 mcg powder for inhalatio n RxNorm: 5534585 1 Puff(s) INH QD 02/24/2018 02/23/2018 Inactive Trelegy Ellipta 100 mcg-62.5 mcg-25 mcg powder for inhalatio n RxNorm: 0349384 1 Puff(s) INH QD 02/24/2018 04/05/2018 Inactive Lasix 40 mg tablet RxNorm: 698739 1 Tablet(s) PO QAM 02/10/201803/11 Inactive potassium chloride ER 20 mEq tablet,extended release(p art/cryst) RxNorm: 9875700 1 Tablet(s) PO QD 02/10/2018 03/11/2018 Inactive fenofibrate micronized 134 mg capsule RxNorm: 557965 1 Capsule( s) PO QD 01/30/2018 07/28/2018 Inactive metoprolol succinate ER 100 mg tablet,extended release 24 hr RxNorm: 472712 TAKE ONE TABLET BY MOUTH TWICE A DAY 12/30/2017 09/25/2018 Inactive metformin ER 1,000 mg tablet,extended release 24hr RxNorm: 1 995044 1 Tablet(s) PO BID 11/17/2017 05/15/2018 Inactive [SAVINGS FOR NON -COVERED DRUGS -- BIN:133855, PCN: ASPROD1, Group: XXXXX, ID# [id number], Questions: . THIS IS NOT INSURANCE.] Benicar HCT 40 mg-25 mg tablet RxNorm: 441343 1 Tablet(s) PO QD 05/10/2018 Inactive [SAVINGS FOR NON-COVERED JESU GS -- BIN:951476, PCN: ASPROD1, Group: XXXXX, ID# [id number], Questions: . THIS IS NOT INSURANCE.] Bactroban 2 % topical cream RxNorm: 521674 Application TOP BID 10/2409/02/2018 Inactive clindamycin HCl 300 mg capsule RxNorm: 750756 2 Capsule(s) PO TID 0 11/05/2017 11/18/2017 Inactive duloxetine 60 mg capsule,delayed release RxNorm: 025233 Capsule(s) TAKE ONE CAPSULE BY MOUTH ONCE DAILY 09/24/2017 09/23/2017 Inactive triamcinolone acetonide 0.1 % topical ointment RxNorm: 5343106 1 TOP BID 09/09/2017 11/04/2017 Inactive Bactrim DS 800 mg-160 mg tablet RxNorm: 226110 1 Tablet(s) PO BID 0 08/07/2017 08/13/2017 Inactive metronidazole 500 mg tablet RxNorm: 686360 1 Tablet(s) PO BID 08/0708/13/2017 Inactive diltiazem ER 360 mg capsule,24 hr,extended release RxNorm: 8 89366 1 Capsule(s) PO QHS replaces 300mg dose 08/04/2017 01/30/2018 Inactive fenofibrate micronized 134 mg capsule RxNorm: 459121 1 Capsule( s) PO QD 07/21/2017 01/30/2018 Inactive Zocor 40 mg tablet RxNorm: 910965 1 Tablet(s) PO QHS 07/21/201705/10 Inactive GB duloxetine 60 mg capsule,delayed release RxNorm: 342800 Capsule(s) TAKE ONE CAPSULE BY MOUTH ONCE DAILY 06/24/2017 09/24/2017 Inactive Cleocin HCl 300 mg capsule RxNorm: 467950 2 Capsule(s) PO BID 06/0206/08/2017 Inactive acyclovir 800 mg tablet RxNorm: 604844 1 Tablet(s) PO 5x day 201706/08/2017 Inactive diltiazem ER 300 mg capsule,24 hr,extended release RxNorm: 8 69934 1 Capsule(s) PO QHS replaces 240mg dose 05/05/2017 08/03/2017 Inactive ipratropium-albuterol 0.5 mg-3 mg(2.5 mg base)/3 mL ne bulization soln RxNorm: 5904450 1 Unit Dose INH Q4H as needed 05/05/2017 01/04/2019 Inactive metformin ER 1,000 mg tablet,extended release 24hr RxNorm: 1 294302 1 Tablet(s) PO BID 04/28/2017 11/17/2017 Inactive [SAVINGS FOR NON -COVERED DRUGS -- BIN:897235, PCN: ASPROD1, Group: XXXXX, ID# XXXXXXX, Questions: . THIS IS NOT INSURANCE.] diltiazem ER (XR/XT) 240 mg capsule,extended release 2 4 hr, controlled RxNorm: 664939 TAKE ONE CAPSULE BY MOUTH EVERY DAY 04/15/2017 05/04/2017 Inact avani prednisone 20 mg tablet RxNorm: 816574 1 Tablet(s) PO QD 04/10/2017 1 06/14/2016 Inactive Breo Ellipta 200 mcg-25 mcg/dose powder for inhalation RxNor m: 8453025 1 Puff(s) INH QD 04/10/2017 02/09/2018 Inactive Breo Ellipta 200 mcg-25 mcg/dose powder for inhalation RxNor m: 1181603 1 Puff(s) INH QD 04/10/2017 04/09/2017 Inactive Levaquin 500 mg tablet RxNorm: 713022 1 Tablet(s) PO QD 04/10/2017 Inactive metoprolol succinate ER 100 mg tablet,extended release 24 hr RxNorm: 624670 TAKE ONE TABLET BY MOUTH TWICE A DAY 03/24/2017 12/18/2017 Inactive fenofibrate micronized 134 mg capsule RxNorm: 872677 1 Capsule( s) PO QD 01/16/2017 07/21/2017 Inactive Benicar HCT 40 mg-25 mg tablet RxNorm: 562792 1 Tablet(s) PO QD 11/17/2017 Inactive [SAVINGS FOR NON-COVERED JESU GS -- BIN:989972, PCN: ASPROD1, Group: XXXXX, ID# [id number], Questions: . THIS IS NOT INSURANCE.] metoprolol succinate ER 100 mg tablet,extended release 24 hr RxNorm: 272756 1 Tablet(s) PO BID 10/16/2016 03/23/2017 Inactive diltiazem ER (XR/XT) 240 mg capsule,extended release 2 4 hr, controlled RxNorm: 539428 1 Capsule(s) PO QD 10/16/2016 04/13/2017 Inactive [SAVINGS FOR NON- COVERED DRUGS -- BIN:330148, PCN: ASPROD1, Group: XXXXX, ID# XXXXXXX, Questions: . THIS IS NOT INSURANCE.] metformin ER 1,000 mg tablet,extended release 24hr RxNorm: 8 27614 1 Tablet(s) PO BID 10/16/2016 04/28/2017 Inactive [SAVINGS FOR NON -COVERED DRUGS -- BIN:505700, PCN: ASPROD1, Group: XXXXX, ID# XXXXXXX, Questions: . THIS IS NOT INSURANCE.] Zocor 40 mg tablet RxNorm: 014045 1 Tablet(s) PO QHS 10/16/201607/21 Inactive GB Singulair 10 mg tablet RxNorm: 100742 Tablet(s) 1 TABLET(S) PO QHS 08/27/2016 09/02/2018 Inactive prednisone 20 mg tablet RxNorm: 696005 1 Tablet(s) PO QD 08/27/2016 0 08/31/2016 Inactive ipratropium-albuterol 0.5 mg-3 mg(2.5 mg base)/3 mL ne bulization soln RxNorm: 7098531 1 Unit Dose INH Q4H as needed 08/27/2016 05/04/2017 Inactive metoprolol succinate ER 100 mg tablet,extended release 24 hr RxNorm: 816992 TAKE ONE TABLET BY MOUTH TWICE A DAY 08/05/2016 10/16/2016 Inactive duloxetine 60 mg capsule,delayed release RxNorm: 265972 TAKE ONE CAPSULE BY MOUTH ONCE DAILY 08/05/2016 06/24/2017 Inactive prednisone 20 mg tablet RxNorm: 131296 1 Tablet(s) PO QD 06/14/2016 0 06/18/2016 Inactive ipratropium-albuterol 0.5 mg-3 mg(2.5 mg base)/3 mL ne bulization soln RxNorm: 4732180 1 Unit Dose INH Q4H as needed 06/13/2016 08/26/2016 Inactive Levaquin 500 mg tablet RxNorm: 246649 1 Tablet(s) PO QD 06/13/2016 Inactive metoprolol succinate ER 100 mg tablet,extended release 24 hr RxNorm: 388296 1 Tablet(s) PO BID replaces 50mg dose 05/14/2016 07/12/2016 Inactive metoprolol succinate ER 50 mg tablet,extended release 24 hr RxNorm: 326136 1 Tablet(s) PO BID 04/29/2016 05/13/2016 Inactive prednisone 20 mg tablet RxNorm: 256640 1 Tablet(s) PO BID 04/22/2016 04/21/2016 Inactive prednisone 20 mg tablet RxNorm: 376391 1 Tablet(s) PO BID 04/22/2016 04/28/2016 Inactive Singulair 10 mg tablet RxNorm: 946218 Tablet(s) 1 TABLET(S) PO QHS 04/01/2016 08/26/2016 Inactive metoprolol succinate ER 25 mg tablet,extended release 24 hr RxNorm: 043397 1 Tablet(s) PO QHS for blood pressure 04/01/2016 05/13/2016 Inactive fenofibrate micronized 134 mg capsule RxNorm: 577100 TA KE ONE CAPSULE BY MOUTH DAILY 01/25/2016 01/16/2017 Inactive duloxetine 60 mg capsule,delayed release RxNorm: 577108 TAKE ONE CAPSULE BY MOUTH ONCE DAILY 01/25/2016 08/04/2016 Inactive Zocor 40 mg tablet RxNorm: 405698 TAKE ONE TABLET BY MOUTH AT B EDTIME 11/13/2015 10/16/2016 Inactive GB metformin ER 1,000 mg tablet,extended release 24hr RxNorm: 8 49703 1 Tablet(s) PO BID 10/26/2015 10/16/2016 Inactive [SAVINGS FOR NON -COVERED DRUGS -- BIN:413228, PCN: ASPROD1, Group: XXXXX, ID# [id number], Questions: . THIS IS NOT INSURANCE.] Benicar HCT 40 mg-25 mg tablet RxNorm: 354284 1 Tablet(s) PO QD 06/201511/11/2016 Inactive [SAVINGS FOR NON-COVERED JESU GS -- BIN:933806, PCN: ASPROD1, Group: XXXXX, ID# XXXXXXX, Questions: . THIS IS NOT INSURANCE.] diltiazem ER (XR/XT) 240 mg capsule,extended release,control led RxNorm: 658098 1 Capsule(s) PO QD 10/26/2015 10/15/2016 Inactive [SAVINGS FOR NO N-COVERED DRUGS -- BIN:317745, PCN: ASPROD1, Group: XXXXX, ID# XXXXXXX, Questions: . THIS IS NOT INSURANCE.] Singulair 10 mg tablet RxNorm: 593823 1 TABLET(S) PO QHS 09/18/2015 1 05/31/2015 Inactive Viagra 100 mg tablet RxNorm: 144084 1 Tablet(s) PO as needed 201511/23/2018 Inactive Singulair 10 mg tablet RxNorm: 650642 1 Tablet(s) PO QHS 08/16/2015 0 08/15/2015 Inactive Singulair 10 mg tablet RxNorm: 056846 1 Tablet(s) PO QHS 08/16/2015 0 09/14/2015 Inactive duloxetine 60 mg capsule,delayed release RxNorm: 572550 1 Capsule(s) PO QD replaces fluoxetine 08/14/2015 01/24/2016 Inactive ipratropium-albuterol 0.5 mg-3 mg(2.5 mg base)/3 mL ne bulization soln RxNorm: 7002456 1 Unit Dose INH Q4H as needed 08/14/2015 06/12/2016 Inactive prednisone 20 mg tablet RxNorm: 692803 Take 3 tabs PO o nce daily x 3 days, then 2 tabs PO once daily x 3 days and then 1 tab PO once daily x 3 days 08/09/2015 08/13/2015 Inactive Symbicort 160 mcg-4.5 mcg/actuation HFA aerosol inhaler RxNo rm: 9807013 2 Puff(s) INH BID 08/09/2015 08/13/2015 Inactive Zocor 40 mg tablet RxNorm: 982457 1 Tablet(s) PO QHS 05/23/201511/11 Inactive [AttnRPh: Saving apply/adjudicate RxGRP: SG20 RxBIN:[id number] RxPCN: ID#:[id number]] Benicar HCT 40 mg-25 mg tablet RxNorm: 620167 1 Tablet(s) PO QD 10/26/2015 Inactive [SAVINGS FOR NON-COVERED JESU GS -- BIN:546033, PCN: ASPROD1, Group: XXXXX, ID# XXXXXXX, Questions: . THIS IS NOT INSURANCE.] diltiazem ER (XR/XT) 240 mg capsule,extended release,control led RxNorm: 145402 1 Capsule(s) PO QD 04/24/2015 10/20/2015 Inactive [SAVINGS FOR NO N-COVERED DRUGS -- BIN:868373, PCN: ASPROD1, Group: XXXXX, ID# XXXXXXX, Questions: . THIS IS NOT INSURANCE.] fluoxetine 40 mg capsule RxNorm: 398610 1 Capsule(s) PO QD 04/24/20 15 08/13/2015 Inactive [SAVINGS FOR NON-COVERED JESU GS -- BIN:690472, PCN: ASPROD1, Group: XXXXX, ID# XXXXXXX, Questions: . THIS IS NOT INSURANCE.] Zocor 40 mg tablet RxNorm: 197013 TABLET(S) 1 TABLET(S) PO QHS 01/2505/23/2015 Inactive [AttnRPh: Saving apply/adjud icate RxGRP:SG20 RxBIN:[id number] RxPCN:HT ID#:[id number]] metformin ER 1,000 mg tablet,extended release 24hr RxNorm: 8 24972 1 TABLET(S) PO BID 01/29/2015 10/26/2015 Inactive [SAVINGS FOR NON -COVERED DRUGS -- BIN:225701, PCN: ASPROD1, Group: XXXXX, ID# XXXXXXX, Questions: . THIS IS NOT INSURANCE.] fenofibrate micronized 134 mg capsule RxNorm: 028270 1 CAPSULE( S) PO QD 01/23/2015 01/17/2016 Inactive fenofibrate micronized 134 mg capsule RxNorm: 527649 1 Capsule( s) PO QD 11/07/2014 01/22/2015 Inactive diltiazem ER (XR/XT) 240 mg capsule,extended release,control led RxNorm: 807795 1 Capsule(s) PO QD 10/24/2014 04/24/2015 Inactive [SAVINGS FOR NO N-COVERED DRUGS -- BIN:093205, PCN: ASPROD1, Group: XXXXX, ID# XXXXXXX, Questions: . THIS IS NOT INSURANCE.] Benicar HCT 40 mg-25 mg tablet RxNorm: 157145 1 Tablet(s) PO QD 05/201404/24/2015 Inactive [SAVINGS FOR NON-COVERED JESU GS -- BIN:660880, PCN: ASPROD1, Group: XXXXX, ID# XXXXXXX, Questions: . THIS IS NOT INSURANCE.] fluoxetine 40 mg capsule RxNorm: 235423 1 Capsule(s) PO QD 10/25/1904/24/2015 Inactive [SAVINGS FOR NON-COVERED JESU GS -- BIN:261330, PCN: ASPROD1, Group: XXXXX, ID# XXXXXXX, Questions: . THIS IS NOT INSURANCE.] azithromycin 500 mg tablet RxNorm: 241361 1 Tablet(s) PO QD 015 09/27/2014 Inactive [SAVINGS FOR NON-COVERED JESU GS -- BIN:918176, PCN: ASPROD1, Group: XXXXX, ID# XXXXXXX, Questions: . THIS IS NOT INSURANCE.] albuterol sulfate 2.5 mg/3 mL (0.083 %) solution for n ebulization RxNorm: 889508 3 Milliliter(s) INH ONE VIAL VIA NEBULIZER EVERY 4 HOURS 015 11/19/2014 Inactive [AttnRPh: Saving apply/adjudicate RxGRP: SG20 RxBIN:[id number] RxPCN: ID#:[id number]] Zocor 40 mg tablet RxNorm: 897270 TABLET(S) 1 TABLET(S ) PO QHS 1 TABLET(S) PO QHS 09/04/2014 02/21/2015 Inactive [AttnRPh: Saving apply/adjudicate RxGRP:SG20 RxBIN:[id number] RxPCN:HT ID#:[id number]] metformin ER 1,000 mg tablet,extended release 24hr RxNorm: 8 99975 1 Tablet(s) PO BID 08/04/2014 01/28/2015 Inactive [SAVINGS FOR NON -COVERED DRUGS -- BIN:545986, PCN: ASPROD1, Group: XXXXX, ID# XXXXXXX, Questions: . THIS IS NOT INSURANCE.] Bromfed DM 2 mg-30 mg-10 mg/5 mL syrup RxNorm: 1018360 1 -2 Teaspoon(s) PO Q4H as needed for cough 06/10/2014 06/19/2014 Inactive [SAVINGS FOR UN INSURED PATIENTS -- BIN:283622, PCN: ASPROD1, Group: AME08, ID# [id number], Process claim through [employer], for questions: . THIS IS NOT INSURANCE.] Augmentin 875 mg-125 mg tablet RxNorm: 801299 1 Tablet(s) PO Q12H 0 06/10/2014 06/19/2014 Inactive [AttnRPh: Saving apply/adjud icate RxGRP:SG20 RxBIN:[id number] RxPCN:HT ID#:[id number]] Zocor 40 mg tablet RxNorm: 853482 Tablet(s) 1 TABLET(S ) PO QHS 1 TABLET(S) PO QHS 05/25/2014 08/22/2014 Inactive [AttnRPh: Saving apply/adjudicate RxGRP:SG20 RxBIN:[id number] RxPCN:HT ID#:[id number]] fluoxetine 40 mg capsule RxNorm: 097918 1 Capsule(s) PO QD 04/29/20 14 10/24/2014 Inactive [AttnRPh: Saving apply/adjud icate RxGRP:SG20 RxBIN:[id number] RxPCN:HT ID#:[id number]] diltiazem ER (XR/XT) 240 mg capsule,extended release,control led RxNorm: 424619 1 Capsule(s) PO QD 04/29/2014 10/24/2014 Inactive [AttnRPh: Leonelin g apply/adjudicate RxGRP:SG20 RxBIN:[id number] RxPCN:HT ID#:[id number]] Benicar HCT 40 mg-25 mg tablet RxNorm: 052335 1 Tablet(s) PO QD 09/201310/24/2014 Inactive [AttnRPh: Saving apply/adjud icate RxGRP:SG20 RxBIN:[id number] RxPCN:HT ID#:[id number]] Zocor 40 mg tablet RxNorm: 361273 1 TABLET(S) PO QHS 1 TABLET(S ) PO QHS 03/07/2014 05/25/2014 Inactive [AttnRPh: Saving chelsie ly/adjudicate RxGRP:SG20 RxBIN:[id number] RxPCN:HT ID#:[id number]] Zocor 40 mg tablet RxNorm: 662421 1 Tablet(s) PO QHS 1 TABLET(S ) PO QHS 12/06/2013 03/05/2014 Inactive [AttnRPh: Saving chelsie ly/adjudicate RxGRP:SG20 RxBIN:[id number] RxPCN:HT ID#:[id number]] diltiazem ER (XR/XT) 240 mg capsule,extended release,control led RxNorm: 134931 1 Capsule(s) PO QD 10/25/2013 04/22/2014 Inactive [AttnRPh: Leonelin g apply/adjudicate RxGRP:SG20 RxBIN:[id number] RxPCN:HT ID#:[id number]] fluoxetine 40 mg capsule RxNorm: 149147 1 Capsule(s) PO QD 10/26/19 14 04/22/2014 Inactive [AttnRPh: Saving apply/adjud icate RxGRP:SG20 RxBIN:[id number] RxPCN: ID#:[id number]] Zocor 40 mg tablet RxNorm: 253170 1 Tablet(s) PO QHS 1 TABLET(S ) PO QHS 09/13/2013 12/06/2013 Inactive metformin ER 1,000 mg tablet,extended release 24hr RxNorm: 8 59509 Tablet(s) PO TAKE 1 TABLET BY MOUTH TWICE DAILY (REPLACES 500MG DOSE) 07/26/201303/2015 Inactive diltiazem ER (XR/XT) 240 mg capsule,extended release,control led RxNorm: 473051 1 Capsule(s) PO QD 05/03/2013 10/25/2013 Inactive fluoxetine 40 mg capsule RxNorm: 132197 1 Capsule(s) PO QD 05/03/20 13 10/25/2013 Inactive Benicar HCT 40 mg-25 mg tablet RxNorm: 984916 1 Tablet(s) PO QD 01/201304/29/2014 Inactive Zocor 40 mg tablet RxNorm: 318513 1 Tablet(s) PO QHS 12/10/201209/13 Inactive fluoxetine 40 mg capsule RxNorm: 836724 1 Capsule(s) PO QD 11/10/19 13 05/03/2013 Inactive diltiazem ER (XR/XT) 240 mg capsule,extended release,control led RxNorm: 003514 1 Capsule(s) PO QD 11/09/2012 05/03/2013 Inactive Benicar HCT 40 mg-25 mg tablet RxNorm: 824628 1 Tablet(s) PO QD 05/03/2013 Inactive metformin ER 1,000 mg tablet,extended release 24hr RxNorm: 8 66124 Tablet(s) PO TAKE 1 TABLET BY MOUTH TWICE DAILY (REPLACES 500MG DOSE) 08/05/201206/2013 Inactive Zocor 40 mg tablet RxNorm: 060701 1 Tablet(s) PO QHS 06/15/201212/09 Inactive fluoxetine 40 mg capsule RxNorm: 250346 1 Capsule(s) PO QD 05/15/20 12 11/08/2012 Inactive Neurontin 600 mg Tab RxNorm: 610842 1 Tablet(s) PO QHS 12/03/2011 Inactive metformin ER 1,000 mg tablet,extended release 24hr RxNorm: 8 03505 1 Tablet(s) PO BID replaces 500mg dose 12/03/2011 07/26/2013 Inactive Zocor 40 mg tablet RxNorm: 342610 1 Tablet(s) PO QHS 12/03/201106/15 Inactive fluoxetine 20 mg capsule RxNorm: 889001 1 Capsule(s) PO QD 12/03/19 12 05/24/2012 Inactive diltiazem ER (XR/XT) 240 mg capsule,extended release,control led RxNorm: 908938 1 Capsule(s) PO QD 11/15/2011 11/09/2012 Inactive Benicar HCT 40 mg-25 mg tablet RxNorm: 188564 1 Tablet(s) PO QD 02/16/2012 Inactive metformin ER 500 mg 24 hr Tab RxNorm: 409774 1 Tablet(s) PO BID 12/02/2011 Inactive Zocor 40 mg Tab RxNorm: 852286 1 Tablet(s) PO QHS 05/30/2011 11/25/19 12 Inactive fluoxetine 20 mg Cap RxNorm: 944410 1 Capsule(s) PO QD 05/28/2011 Inactive Neurontin 600 mg Tab RxNorm: 030916 1 Tablet(s) PO QHS 05/28/2011 Inactive Neurontin 600 mg Tab RxNorm: 659140 1 Tablet(s) PO QHS 02/22/201106/2011 Inactive Neurontin 600 mg Tab RxNorm: 960825 1 Tablet(s) PO QHS 01/14/2011 Inactive Neurontin 300 mg Cap RxNorm: 669639 1 Capsule(s) PO QHS 01/14/2011 Inactive Neurontin 600 mg Tab RxNorm: 974416 1 Tablet(s) PO QHS 01/14/2011 Inactive Medrol (Vipul) 4 mg Tabs in a Dose Pack RxNorm: 293981 Tablet(s) PO 0 01/02/2011 08/28/2011 Inactive as directed fluoxetine 20 mg Cap RxNorm: 399857 1 Capsule(s) PO QD 12/10/201006/2011 Inactive Zocor 40 mg Tab RxNorm: 442120 1 Tablet(s) PO QHS 12/03/2010 05/29/19 12 Inactive Neurontin 300 mg Cap RxNorm: 557451 1 Capsule(s) PO QHS 12/03/2010 Inactive Septra DS 800 mg-160 mg Tab RxNorm: 303333 1 Tablet(s) PO BID 11/2912/08/2010 Inactive diltiazem ER (XR/XT) 240 mg Continuous Release Cap RxNorm: 8 91227 1 Capsule(s) PO QD 11/20/2010 11/15/2011 Inactive Neurontin 300 mg Cap RxNorm: 646769 1 Capsule(s) PO QHS 11/06/2010 Inactive Neurontin 300 mg Cap RxNorm: 249792 1 Capsule(s) PO QHS 11/06/2010 Inactive Celebrex 200 mg Cap RxNorm: 806583 1 Capsule(s) PO BID 10/24/2010 Inactive fluoxetine 20 mg Cap RxNorm: 950160 1 Capsule(s) PO QD 06/07/201003/2011 Inactive Zocor 40 mg Tab RxNorm: 943064 1 Tablet(s) PO QHS 06/05/2010 12/02/19 11 Inactive Benicar HCT 40 mg-25 mg Tab RxNorm: 828473 1 Tablet(s) PO QD 200908/21/2011 Inactive Diltiazem 240 mg Continuous Release Cap RxNorm: 703810 1 Capsul e(s) PO QD 11/09/2009 09/02/2018 Inactive Avelox 400 mg Tab RxNorm: 663554 1 Tablet(s) PO QD 08/22/2009 010 Inactive ProAir HFA 90 mcg/actuation aerosol inhaler RxNorm: 157153 2 Puff(s) INH Q4H as needed No Start Date Active tramadol 50 mg tablet RxNorm: 056680 1-2 Tablet(s) PO TID as ne eded for pain No Start Date Active Tylenol Arthritis 650 mg Tab RxNorm: 3909900 2 Tablet(s) PO QD No Sta rt Date Active Celebrex 200 mg Cap RxNorm: 298028 1 Capsule(s) PO BID No Start Date 08/08/2015 Inactive Medrol (Vipul) 4 mg Tabs in a Dose Pack RxNorm: 681796 Tablet(s) PO N o Start Date 01/01/2011 Inactive as directed Promethazine-DM 6.25 mg-15 mg/5 mL Syrup RxNorm: 526935 1-2 Teaspoon(s) PO Q4H prn cough No Start Date 08/28/2011 Inactive Claritin 10 mg tablet RxNorm: 811683 1 Tablet(s) PO QD No Start Date 08/08/2015 Inactive Ngtsudsuyo-Ebztr-EKL-James-115HC Oral RxNorm: Oral No Start Da te 03/28/2019 Inactive Breo Ellipta 200 mcg-25 mcg/dose powder for inhalation RxNor m: 0915829 1 Puff(s) INH QD No Start Date 04/09/2017 Inactive metformin 500 mg Tab RxNorm: 878086 1 Tablet(s) PO QD No Start Date 0 08/17/2011 Inactive Diltiazem 240 mg Continuous Release Cap RxNorm: 464382 1 Capsul e(s) PO BID No Start Date 11/08/2009 Inactive fluoxetine 20 mg Cap RxNorm: 226481 1 Capsule(s) PO QD No Start Date 06/07/2010 Inactive Multivitamin & Mineral Formula Oral RxNorm: Oral No Start Da te 03/28/2019 Inactive Medrol (Vipul) 4 mg tablets in a dose pack RxNorm: 120386 Tablet(s) PO as directed No Start Date 05/28/2012 Inactive Fish Oil 1,000 mg Cap RxNorm: 1 Capsule(s) PO QD No Start Date 07/2018 Inactive Nexium 40 mg Cap RxNorm: 607546 1 Capsule(s) PO QD No Start Date 07/24 Inactive fluticasone 50 mcg/actuation nasal spray,suspension RxNorm: 8571966 2 [place] NASAL QD to each nostril No Start Date 08/03/2017 Inactive Viagra 100 mg tablet RxNorm: 296640 1 Tablet(s) PO as needed No Sta rt Date 09/17/2015 Inactive prednisone 20 mg tablet RxNorm: 274914 1 Tablet(s) PO B ID for 4 days then 1 po daily for 4 days No Start Date 11/23/2018 Inactive Benicar HCT 40 mg-25 mg Tab RxNorm: 023223 1 Tablet(s) PO QD No Sta rt [...] Date S ervice Location MICROALBUMIN URINE RANDOM 97121 MICRL MG/L 5.8 MG/L 03/2011 Unknown MICROALBUMIN URINE RANDOM 65632 XM.ALB/CRE 5.2 MG/GCR Unknown MICROALBUMIN URINE RANDOM 01349 CREAT MG/D 111 MG/DL 03/2011 Unknown MICROALBUMIN URINE RANDOM 87400 CRE/100 1.11 G/L 12/24 Unknown Procedures Procedure Codes Date FLU VACC PRSV FREE INC ANTIG 65 AND OLDER CPT-4: 39690 03/04/2019 ADMIN PNEUMOCOCCAL VACCINE CPT-4: G0009 03/04/2019 ADMIN INFLUENZA VIRUS VAC CPT-4: G0008 03/04/2019 FLU VACC PRSV FREE INC ANTIG 65 AND OLDER CPT-4: 44340 03/04/2019 PNEUMOCOCCAL VACC 23 R[facility]MON IM CPT-4: 83836 03/04/2019 THER/PROPH/DIAG INJ SC/IM CPT-4: 62619 08/11/2018 TRIAMCINOLONE ACET INJ NOS CPT-4: J3301 08/11/2018 DEXAMETHASONE SODIUM PHOS CPT-4: J1100 08/11/2018 THER/PROPH/DIAG INJ SC/IM CPT-4: 83669 07/16/2018 METHYLPREDNISOLONE INJECTION CPT-4: J2930 07/16/2018 INFLUENZA ASSAY W/OPTIC CPT-4: 61641 07/16/2018 THER/PROPH/DIAG INJ SC/IM CPT-4: 87467 07/13/2018 TRIAMCINOLONE ACET INJ NOS CPT-4: J3301 07/13/2018 THER/PROPH/DIAG INJ SC/IM CPT-4: 33723 05/04/2018 METHYLPREDNISOLONE INJECTION CPT-4: J2930 05/04/2018 FLU VACC PRSV FREE INC ANTIG 65 AND OLDER CPT-4: 44844 02/10/2018 PNEUMOCOCCAL VACC 13 R[facility] IM CPT-4: 65946 02/10/2018 ADMIN INFLUENZA VIRUS VAC CPT-4: G0008 02/10/2018 ADMIN PNEUMOCOCCAL VACCINE CPT-4: G0009 02/10/2018 THER/PROPH/DIAG INJ SC/IM CPT-4: 74890 09/09/2017 TRIAMCINOLONE ACET INJ NOS CPT-4: J3301 09/09/2017 ALBUTEROL NON-COMP UNIT CPT-4: J7613 04/10/2017 AIRWAY INHALATION TREATMENT CPT-4: 74676 04/10/2017 PRESCRIP TRANSMIT VIA ERX SY CPT-4: G8553 04/10/2017 FLU VACC PRSV FREE INC ANTIG 65 AND OLDER CPT-4: 64122 03/28/2017 ADMIN INFLUENZA VIRUS VAC CPT-4: G0008 03/28/2017 PRESCRIP TRANSMIT VIA ERX SY CPT-4: G8553 08/27/2016 PRESCRIP TRANSMIT VIA ERX SY CPT-4: G8553 06/14/2016 ALBUTEROL NON-COMP UNIT CPT-4: J7613 06/13/2016 AIRWAY INHALATION TREATMENT CPT-4: 13127 06/13/2016 PRESCRIP TRANSMIT VIA ERX SY CPT-4: [...] CPT-4: G8553 11/07/2014 THER/PROPH/DIAG INJ SC/IM CPT-4: 64406 09/21/2014 METHYLPREDNISOLONE INJECTION CPT-4: J2930 09/21/2014 PRESCRIP TRANSMIT VIA ERX SY CPT-4: G8553 09/21/2014 PRESCRIP TRANSMIT VIA ERX SY CPT-4: G8553 06/10/2014 URINALYSIS NONAUTO W/O SCOPE CPT-4: 74661 06/01/2012 PRESCRIP TRANSMIT VIA ERX SY CPT-4: G8553 05/25/2012 PRESCRIP TRANSMIT VIA ERX SY CPT-4: G8553 12/03/2011 CUR TOBACCO NON-USER CPT-4: G8457 05/30/2011 PRESCRIP TRANSMIT VIA ERX SY CPT-4: G8553 05/30/2011 URINALYSIS NONAUTO W/O SCOPE CPT-4: 14998 01/01/2011 URINE CULTURE/ COLONY COUNT CPT-4: 63810 01/01/2011 CUR TOBACCO NON-USER CPT-4: G8457 01/01/2011 [...] 1: 114/68 Code: 8480-6 BMI: 43.5 Code: 60505-0 Heart Rate 1: 52 bpm Height: 6'1" [...] 1: 136/72 Code: 8480-6 BMI: 42.7 Code: 55948-7 Heart Rate 1: 60 bpm Height: 6'1" Respiratory Rate: 22 bpm SpO2: 95% Tempera ture: 37.1 (C) / 98.7 (F) Weight: 324 lbs 02/10/2018 Blood Pressure 1: 146/78 Code: 8480-6 BMI: 42.4 Code: 54971-1 Heart Rate 1: 64 bpm Height: 6'1" Respiratory Rate: 22 bpm SpO2: 95% Tempera ture: 36.5 (C) / 97.7 (F) Weight: 321 lbs 11/05/2017 Blood Pressure 1: 128/84 Code: 8480-6 BMI: 42.9 Code: 45306-4 Heart Rate 1: 52 bpm Height: 6'1" Respiratory Rate: 22 bpm SpO2: 95% Tempera ture: 36.3 (C) / 97.3 (F) Weight: 325 lbs 09/09/2017 Blood Pressure 1: 162/90 Code: 8480-6 BMI: 42.5 Code: 32015-6 Heart Rate 1: 60 bpm Height: 6'1" Respiratory Rate: 24 bpm SpO2: 95% Tempera ture: 36.4 (C) / 97.6 (F) Weight: 322 lbs 08/07/2017 Blood Pressure 1: 152/90 Code: 8480-6 BMI: 42.2 Code: 13373-2 Heart Rate 1: 60 bpm Height: 6'1" Respiratory Rate: 26 bpm SpO2: 94% Tempera ture: 36.6 (C) / 97.8 (F) Weight: 320 lbs 08/04/2017 Blood Pressure 1: 150/86 Code: 8480-6 BMI: 42.7 Code: 20077-0 Heart Rate 1: 64 bpm Height: 6'1" Respiratory Rate: 20 bpm SpO2: 94% Tempera ture: 36.3 (C) / 97.3 (F) Weight: 324 lbs 06/04/2017 Blood Pressure 1: 164/90 Code: 8480-6 Heart Rate 1: 60 bpm Respiratory Rate: 24 bpm SpO2: 94% Temperature: 36.8 (C) / 98.3 (F) 06/02/2017 Blood Pressure 1: 162/80 Code: 8480-6 BMI: 42.9 Code: 22030-3 Heart Rate 1: 66 bpm Height: 6'1" Respiratory Rate: 22 bpm SpO2: 98% Tempera ture: 36.6 (C) / 97.8 (F) Weight: 325 lbs 05/05/2017 Blood Pressure 1: 164/94 Code: 8480-6 BMI: 41.4 Code: 43643-3 Heart Rate 1: 64 bpm Height: 6'1" Respiratory Rate: 22 bpm SpO2: 95% Tempera ture: 36.4 (C) / 97.5 (F) Weight: 314 lbs 04/10/2017 Blood Pressure 1: 136/78 Code: 8480-6 BMI: 42.0 Code: 84599-4 Heart Rate 1: 76 bpm Height: 6'1" Respiratory Rate: 24 bpm SpO2: 92% Tempera ture: 35.9 (C) / 96.7 (F) Weight: 318 lbs 02/03/2017 Blood Pressure 1: 134/82 Code: 8480-6 BMI: 41.7 Code: 35659-7 Heart Rate 1: 72 bpm Height: 6'1" Respiratory Rate: 24 bpm SpO2: 95% Tempera ture: 36.1 (C) / 97.0 (F) Weight: 316 lbs 10/30/2016 Blood Pressure 1: 126/74 Code: 8480-6 BMI: 41.3 Code: 26801-3 Heart Rate 1: 68 bpm Height: 6'1" Respiratory Rate: 20 bpm Temperature: 37 .1 (C) / 98.8 (F) Weight: 313 lbs 08/30/2016 Blood Pressure 1: 146/80 Code: 8480-6 BMI: 41.7 Code: 26797-6 Heart Rate 1: 64 bpm Height: 6'1" Respiratory Rate: 24 bpm SpO2: 94% Tempera ture: 36.6 (C) / 97.8 (F) Weight: 316 lbs 08/27/2016 Blood Pressure 1: 124 Code: 8480-6 Heart Rate 1: 66 bpm Height: 6'2" Respiratory Rate: 18 bpm SpO2: 94% Temperature: 36.6 (C) / 97.8 (F) Weight: 07/02/2016 Blood Pressure 1: 126 Code: 8480-6 BMI: 41.4 Code: 52040-9 Heart Rate 1: 68 bpm Height: 6'1" Respiratory Rate: 24 bpm SpO2: 94% Tempera ture: 36.6 (C) / 97.8 (F) Weight: 314 lbs 06/14/2016 Blood Pressure 1: 146/82 Code: 8480-6 Heart Rate 1: 80 bpm Respiratory Rate: 20 bpm SpO2: 95% Temperature: 37.3 (C) / 99.2 (F) 06/13/2016 Blood Pressure 1: 146/84 Code: 8480-6 BMI: 40.5 Code: 48126-8 Heart Rate 1: 66 bpm Height: 6'1" Respiratory Rate: 28 bpm SpO2: 93% Tempera ture: 35.8 (C) / 96.4 (F) Weight: 307 lbs 05/14/2016 Blood Pressure 1: 146/90 Code: 8480-6 BMI: 41.2 Code: 47383-9 Heart Rate 1: 68 bpm Height: 6'1" Respiratory Rate: 26 bpm Temperature: 36 .8 (C) / 98.2 (F) Weight: 312 lbs 04/29/2016 Blood Pressure 1: 152/90 Code: 8480-6 BMI: 41.0 Code: 46471-1 Heart Rate 1: 68 bpm Height: 6'1" Respiratory Rate: 26 bpm SpO2: 94% Tempera ture: 36.1 (C) / 96.9 (F) Weight: 311 lbs 04/22/2016 Blood Pressure 1: 152/94 Code: 8480-6 BMI: 40.9 Code: 59163-5 Heart Rate 1: 68 bpm Height: 6'1" Respiratory Rate: 24 bpm SpO2: 94% Tempera ture: 36.2 (C) / 97.2 (F) Weight: 310 lbs 04/01/2016 Blood Pressure 1: 156/78 Code: 8480-6 BMI: 40.6 Code: 36964-1 Heart Rate 1: 84 bpm Height: 6'1" Respiratory Rate: 22 bpm SpO2: 95% Tempera ture: 37.1 (C) / 98.7 (F) Weight: 308 lbs 11/30/2015 Blood Pressure 1: 142/80 Code: 8480-6 BMI: 40.5 Code: 03431-9 Heart Rate 1: 88 bpm Height: 6'1" Respiratory Rate: 22 bpm Temperature: 36 .2 (C) / 97.2 (F) Weight: 307 lbs 08/29/2015 Blood Pressure 1: 132/70 Code: 8480-6 BMI: 40.0 Code: 77941-4 Heart Rate 1: 76 bpm Height: 6'1" Respiratory Rate: 24 bpm SpO2: 96% Tempera ture: 36.7 (C) / 98.0 (F) Weight: 303 lbs 08/14/2015 Blood Pressure 1: 126/80 Code: 8480-6 BMI: 39.4 Code: 66155-6 Heart Rate 1: 92 bpm Height: 6'1" Respiratory Rate: 24 bpm SpO2: 94% Tempera ture: 37.8 (C) / 100.0 (F) Weight: 299 lbs 08/09/2015 Blood Pressure 1: 146/82 Code: 8480-6 Heart Rate 1: 82 bpm Respiratory Rate: 22 bpm SpO2: 93% Temperature: 35.9 (C) / 96.6 (F) We ight: 310 lbs 05/22/2015 Blood Pressure 1: 156/76 Code: 8480-6 BMI: 41.0 Code: 91918-5 Heart Rate 1: 100 bpm Height: 6'1" Respiratory Rate: 22 bpm Temperature: 37 .2 (C) / 98.9 (F) Weight: 311 lbs 02/13/2015 Blood Pressure 1: 166/90 Code: 8480-6 BMI: 41.2 Code: 34150-8 Heart Rate 1: 72 bpm Height: 6'1" Respiratory Rate: 24 bpm SpO2: 93% Tempera ture: 36.9 (C) / 98.5 (F) Weight: 312 lbs 11/07/2014 Blood Pressure 1: 134/70 Code: 8480-6 BMI: 40.5 Code: 80075-6 Heart Rate 1: 76 bpm Height: 6'1" Respiratory Rate: 24 bpm Temperature: 36 .9 (C) / 98.4 (F) Weight: 307 lbs 10/04/2014 Blood Pressure 1: 144/86 Code: 8480-6 BMI: 40.1 Code: 08280-7 Heart Rate 1: 76 bpm Height: 6'1" Respiratory Rate: 28 bpm Temperature: 36 .6 (C) / 97.9 (F) Weight: 304 lbs 09/22/2014 Blood Pressure 1: 142/80 Code: 8480-6 BMI: 40.0 Code: 12835-8 Heart Rate 1: 80 bpm Height: 6'1" Respiratory Rate: 22 bpm SpO2: 96% Tempera ture: 36.6 (C) / 97.8 (F) Weight: 303 lbs 09/21/2014 Blood Pressure 1: 160/66 Code: 8480-6 BMI: 40.0 Code: 01916-4 Heart Rate 1: 90 bpm Height: 6'1" Respiratory Rate: 26 bpm SpO2: 94% Tempera ture: 35.7 (C) / 96.2 (F) Weight: 303 lbs 06/28/2014 Blood Pressure 1: 132/80 Code: 8480-6 BMI: 41.0 Code: 23605-2 Heart Rate 1: 64 bpm Height: 6' Respiratory Rate: 20 bpm Temperature: 36 .7 (C) / 98.0 (F) Weight: 302 lbs 06/10/2014 Blood Pressure 1: 152/70 Code: 8480-6 BMI: 41.1 Code: 87168-3 Heart Rate 1: 76 bpm Height: 6' Respiratory Rate: 20 bpm Temperature: 36 .6 (C) / 97.8 (F) Weight: 303 lbs 03/29/2014 Blood Pressure 1: 132/78 Code: 8480-6 BMI: 40.6 Code: 05937-6 Heart Rate 1: 84 bpm Height: 6' Respiratory Rate: 22 bpm Temperature: 37 .1 (C) / 98.8 (F) Weight: 299 lbs 11/30/2013 Blood Pressure 1: 136/84 Code: 8480-6 BMI: 39.2 Code: 47698-4 Heart Rate 1: 76 bpm Height: 6' Respiratory Rate: 20 bpm Temperature: 36 .8 (C) / 98.2 (F) Weight: 289 lbs 08/03/2013 Blood Pressure 1: 144/80 Code: 8480-6 Heart Rate 1: 86 bpm Respiratory Rate: 20 bpm Temperature: 36.6 (C) / 97.8 (F) Weight: 296 lbs 04/06/2013 Blood Pressure 1: 142/90 Code: 8480-6 BMI: 40.3 Code: 39289-0 Heart Rate 1: 88 bpm Height: 6' Respiratory Rate: 20 bpm Temperature: 36 .6 (C) / 97.8 (F) Weight: 297 lbs 12/01/2012 Blood Pressure 1: 124/78 Code: 8480-6 BMI: 38.7 Code: 33712-9 Heart Rate 1: 76 bpm Height: 6' Respiratory Rate: 20 bpm Temperature: 37 .2 (C) / 98.9 (F) Weight: 285 lbs 08/04/2012 Blood Pressure 1: 128/80 Code: 8480-6 BMI: 38.2 Code: 10539-7 Heart Rate 1: 76 bpm Height: 6' Respiratory Rate: 20 bpm Temperature: 37 .0 (C) / 98.6 (F) Weight: 282 lbs 05/29/2012 Blood Pressure 1: 138/78 Code: 8480-6 BMI: 36.6 Code: 95183-9 Heart Rate 1: 66 bpm Height: 6' Temperature: 36.7 (C) / 98.1 (F) Weight: 270 lbs 05/25/2012 Blood Pressure 1: 128/72 Code: 8480-6 BMI: 39.9 Code: 99743-6 Heart Rate 1: 74 bpm Height: 6' Temperature: 36.1 (C) / 97.0 (F) Weight: 294 lbs 04/07/2012 Blood Pressure 1: 124/76 Code: 8480-6 BMI: 39.9 Code: 05037-9 Heart Rate 1: 72 bpm Height: 6' Respiratory Rate: 20 bpm Temperature: 36 .9 (C) / 98.5 (F) Weight: 294 lbs 12/16/2011 Blood Pressure 1: 128/80 Code: 8480-6 BMI: 40.8 Code: 72134-1 Heart Rate 1: 74 bpm Height: 6' Temperature: 36.6 (C) / 97.8 (F) Weight: 301 lbs 12/03/2011 Blood Pressure 1: 132/76 Code: 8480-6 BMI: 40.8 Code: 69922-0 Heart Rate 1: 68 bpm Height: 6' Respiratory Rate: 20 bpm Temperature: 36 .8 (C) / 98.2 (F) Weight: 301 lbs 08/29/2011 Blood Pressure 1: 140/68 Code: 8480-6 BMI: 40.8 Code: 27962-4 Heart Rate 1: 80 bpm Height: 6' Respiratory Rate: 20 bpm Temperature: 36 .4 (C) / 97.6 (F) Weight: 301 lbs 05/30/2011 Blood Pressure 1: 134/82 Code: 8480-6 BMI: 41.5 Code: 23919-8 Heart Rate 1: 76 bpm Height: 6' [...] 1: 126/72 Code: 8480-6 BMI: 41.2 Code: 22379-5 Heart Rate 1: 76 bpm Height: 6' [...] 1: 152/90 Code: 8480-6 BMI: 37.7 Code: 68854-2 Heart Rate 1: 92 bpm Height: 6'1" Temperature: 38.3 (C) / 101.0 (F) Weight : 286 lbs Functional Status No Functional Status data Reason For Visit Reason For Visit Effective Dates Notes follow up 08/30/2019 Discuss singulair th erapy follow up 08/10/2019 cellulitis 07/06/2019 follow up 05/10/2019 follow up 03/29/2019 [facility] fwup injection(s) 03/04/2019 follow up 01/05/2019 [...] dm Encounters Encounter Performer Location Codes Date ([id number]) OFFICE/OUTPATIENT VISIT EST Diagnosis: Chronic obstructive pulmonary disease, unspecified[ICD10: J44.9] Diagnosis: Essential (primary) hypertension[ICD10: I10] Diagnosis: Mixed hyperlipidemia[ICD10: E78.2] Diagnosis: Type 2 diabetes mellitus with hyperglycemia[ICD10: E11.65] Neela HYMAN DO [facility] CPT-4: 91704 08/30/2019 ([id number]) OFFICE/OUTPATIENT VISIT EST Diagnosis: Chronic obstructive pulmonary disease with (acute) exacerbation[ICD10: J44.1] Neela HYMAN DO [facility] CPT- 4: 44134 08/10/2019 ([id number]) OFFICE/OUTPATIENT VISIT EST Diagnosis: Sore on toe[ICD10: L98.9] Neela VASQUEZ DO [facility] CPT-4: 28040 07/06/2019 ([id number]) OFFICE/OUTPATIENT VISIT EST Diagnosis: Advanced chronic obstructive pulmonary disease[ICD10: J44.9] 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] Neela HYMAN DO [facility] CPT-4: 89867 05/10/2019 ([id number]) OFFICE/OUTPATIENT VISIT EST Diagnosis: Chronic obstructive pulmonary disease with (acute) exacerbation[ICD10: J44.1] Diagnosis: Hypokalemia[ICD10: E87.6] 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] Neela HYMAN DO [facility] CPT-4: 59535 03/29/2019 ([id number]) NURSE/OUTPATIENT VISIT EST Diagnosis: PNEUMOCOCCAL VACCINE[ICD10: Z23] Neela HYMAN DO [facility] CPT-4: 75095 03/04/2019 ([id number]) OFFICE/OUTPATIENT VISIT EST Diagnosis: Chronic obstructive pulmonary disease with (acute) exacerbation[ICD10: J44.1] Diagnosis: Other nonspecific abnormal finding of lung field[ICD10: R91.8] Neela HYMAN DO [facility] CPT-4: 38253 01/05/2019 ([id number]) OFFICE/OUTPATIENT VISIT EST Diagnosis: Solitary pulmonary nodule[ICD10: R91.1] 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] Diagnosis: Tinea corporis[ICD10: B35.4] Neela HYMAN [facility] CPT-4: 90877 12/09/2018 ([id number]) OFFICE/OUTPATIENT VISIT EST Diagnosis: COUGH[ICD10: R05] Diagnosis: Chronic obstructive pulmonary disease, unspecified[ICD10: J44.9] Diagnosis: Other disorders of lung[ICD10: J98.4] Diagnosis: Other nonspecific abnormal finding of lung field[ICD10: R91.8] Neela HYMAN [employer] [facility] CPT-4: 20720 11/24/2018 ([id number]) OFFICE/OUTPATIENT VISIT EST Diagnosis: Pneumonia, unspecified organism[ICD10: J18.9] Amita HYMAN [employer] [facility] CPT-4: 04171 09/16/2018 ([id number]) OFFICE/OUTPATIENT VISIT EST Diagnosis: Pneumonia, unspecified organism[ICD10: J18.9] Neela HYMAN [employer] CPT-4: 99016 09/03/2018 ([id number]) OFFICE/OUTPATIENT VISIT EST Diagnosis: Personal history of pneumonia (recurrent)[ICD10: Z87.01] Diagnosis: Cough[ICD10: R05] Diagnosis: Essential (primary) hypertension[ICD10: I10] Diagnosis: Type 2 diabetes mellitus with hyperglycemia[ICD10: E11.65] Amita MURILLO [facility]annyiMendez [facility] [facility] CPT-4: 47643 08/27/2018 OFFICE/OUTPATIENT VISIT EST Diagnosis: Pneumonia, unspecified organism[ICD10: J18.9] Diagnosis: Chronic obstructive pulmonary disease with (acute) exacerbation[ICD10: J44.1] Diagnosis: Other specified symptoms and signs involving the circulatory and respiratory systems[ICD10: R09.89] Diagnosis: Essential (primary) hypertension[ICD10: I10] Amita [facility] CPT-4: 25122 08/13/2018 OFFICE/OUTPATIENT VISIT EST Diagnosis: Pneumonia, unspecified organism[ICD10: J18.9] Diagnosis: Other specified symptoms and signs involving the circulatory and respiratory systems[ICD10: R09.89] Amita Cunningham [facility] [facility] CPT-4: 77351 08/11/2018 ([id number]) OFFICE/OUTPATIENT VISIT EST Diagnosis: Dyspnea, unspecified[ICD10: R06.00] Diagnosis: Chronic obstructive pulmonary disease with (acute) exacerbation[ICD10: J44.1] Diagnosis: Pneumonia, unspecified organism[ICD10: J18.9] Amita MIRZALINE JulissaMendez YENNI [facility] CPT-4: 01185 07/16/2018 ([id number]) OFFICE/OUTPATIENT VISIT EST Diagnosis: Acute bronchitis due to other specified organisms[ICD10: J20.8] Diagnosis: Cough[ICD10: R05] Amita MIRZALINE JulissaMendez [facility] T-4: 59857 07/13/2018 ([id number]) OFFICE/OUTPATIENT VISIT EST Diagnosis: Essential (primary) hypertension[ICD10: I10] Diagnosis: Chronic obstructive pulmonary disease, unspecified[ICD10: J44.9] Diagnosis: Type 2 diabetes mellitus with hyperglycemia[ICD10: E11.65] Diagnosis: Mixed hyperlipidemia[ICD10: E78.2] Neela Sergemelany STERLING JulissaMendez VICENTE [employer] [facility] CPT-4: 71449 06/03/2018 ([id number]) OFFICE/OUTPATIENT VISIT EST Diagnosis: Chronic obstructive pulmonary disease, unspecified[ICD10: J44.9] Gely MIRZALINE Octavio HYMAN [employer] [facility] CPT-4: 21010 05/04/2018 ([id number]) OFFICE/OUTPATIENT VISIT EST Diagnosis: Essential (primary) hypertension[ICD10: I10] Diagnosis: Localized edema[ICD10: R60.0] Neela Yenni NEELA JulissaMendez YENNI [employer] [facility] CPT-4: 59007 03/03/2018 ([id number]) OFFICE/OUTPATIENT VISIT EST Diagnosis: Localized edema[ICD10: R60.0] Neela Sergegemmainna NEELA JulissaMendez YENNI [employer] [facility] CPT-4: 32897 02/17/2018 ([id number]) OFFICE/OUTPATIENT VISIT EST Diagnosis: FLU VACCINE[ICD10: Z23] Diagnosis: PNEUMOCOCCAL VACCINE[ICD10: Z23] Diagnosis: Type 2 diabetes mellitus without complications[ICD10: E11.9] Diagnosis: Mixed hyperlipidemia[ICD10: E78.2] Diagnosis: Essential (primary) hypertension[ICD10: I10] Diagnosis: Localized edema[ICD10: R60.0] Diagnosis: Chronic obstructive pulmonary disease, unspecified[ICD10: J44.9] Neela HYMAN [employer] CPT-4: 60878 02/10/2018 ([id number]) OFFICE/OUTPATIENT VISIT EST Diagnosis: Type 2 diabetes mellitus with hyperglycemia[ICD10: E11.65] Diagnosis: Mixed hyperlipidemia[ICD10: E78.2] Diagnosis: Essential (primary) hypertension[ICD10: I10] Diagnosis: Chronic obstructive pulmonary disease, unspecified[ICD10: J44.9] Diagnosis: Cutaneous abscess of back [any part, except buttock][ICD10: L02.212] Neela HYMAN [employer] CPT-4: 71117 11/05/2017 ([id number]) OFFICE/OUTPATIENT VISIT EST Diagnosis: Allergic urticaria[ICD10: L50.0] Gely HYMAN DO [employer] CPT-4: 35205 09/09/2017 ([id number]) OFFICE/OUTPATIENT VISIT EST Diagnosis: Generalized enlarged lymph nodes[ICD10: R59.1] Diagnosis: Acute gastritis without bleeding[ICD10: K29.00] Gely HYMAN [employer] CPT-4: 57417 08/07/2017 ([id number]) OFFICE/OUTPATIENT VISIT EST Diagnosis: Type 2 diabetes mellitus without complications[ICD10: E11.9] Diagnosis: Mixed hyperlipidemia[ICD10: E78.2] Diagnosis: Essential (primary) hypertension[ICD10: I10] Neela HYMAN [employer] CPT-4: 06617 08/04/2017 ([id number]) OFFICE/OUTPATIENT VISIT EST Diagnosis: Zoster without complications[ICD10: B02.9] Diagnosis: Acute sialoadenitis[ICD10: K11.21] Gely STERLING WannyiMendez HYMAN [employer] CPT-4: 46158 06/04/2017 OFFICE/OUTPATIENT VISIT EST Diagnosis: Zoster without complications[ICD10: B02.9] Diagnosis: Acute sialoadenitis[ICD10: K11.21] Gely STERLING WannyiMendez HYMAN [employer] CPT-4: 65659 06/02/2017 ([id number]) OFFICE/OUTPATIENT VISIT EST Diagnosis: Type 2 diabetes mellitus without complications[ICD10: E11.9] Diagnosis: Mixed hyperlipidemia[ICD10: E78.2] Diagnosis: Essential (primary) hypertension[ICD10: I10] Diagnosis: Chronic obstructive pulmonary disease, unspecified[ICD10: J44.9] Neela HYMAN DO [facility] CPT-4: 93323 05/05/2017 OFFICE/OUTPATIENT VISIT EST Diagnosis: Chronic obstructive pulmonary disease with acute lower respiratory infection[ICD10: J44.0] Diagnosis: Impacted cerumen, bilateral[ICD10: H61.23] Gely HYMAN [employer] [facility] CPT-4: 81679 04/10/2017 ([id number]) OFFICE/OUTPATIENT VISIT EST Diagnosis: FLU VACCINE[ICD10: Z23] Neela BUI [employer] [facility] CPT-4: 78352 03/28/2017 ([id number]) OFFICE/OUTPATIENT VISIT EST Diagnosis: Type 2 diabetes mellitus without complications[ICD10: E11.9] Diagnosis: Mixed hyperlipidemia[ICD10: E78.2] Diagnosis: Essential (primary) hypertension[ICD10: I10] Diagnosis: Chronic obstructive pulmonary disease, unspecified[ICD10: J44.9] Neela HYMNA [employer] [facility] CPT-4: 41450 02/03/2017 ([id number]) OFFICE/OUTPATIENT VISIT EST Diagnosis: Type 2 diabetes mellitus with hyperglycemia[ICD10: E11.65] Diagnosis: Mixed hyperlipidemia[ICD10: E78.2] Diagnosis: Essential (primary) hypertension[ICD10: I10] Diagnosis: Chronic obstructive pulmonary disease, unspecified[ICD10: J44.9] Neela HYMAN [employer] [facility] CPT-4: 20171 10/30/2016 ([id number]) NO CHARGE Diagnosis: Acute bronchitis, unspecified[ICD10: J20.9] Sammi Najera NEELA Octavio HYMAN [employer] [facility] CPT-4: 06480 08/30/2016 ([id number]) OFFICE/OUTPATIENT VISIT EST Diagnosis: Acute bronchitis, unspecified[ICD10: J20.9] Diagnosis: Other seasonal allergic rhinitis[ICD10: J30.2] Sammi HYMAN DO [facility] CPT-4: 83900 08/27/2016 ([id number]) OFFICE/OUTPATIENT VISIT EST Diagnosis: Type 2 diabetes mellitus without complications[ICD10: E11.9] Diagnosis: Mixed hyperlipidemia[ICD10: E78.2] Diagnosis: Essential (primary) hypertension[ICD10: I10] Neela HYMAN DO [facility] CPT-4: 06848 07/02/2016 ([id number]) OFFICE/OUTPATIENT VISIT EST Diagnosis: Acute bronchitis, unspecified[ICD10: J20.9] Sammi HYMAN DO [facility] CPT-4: 50826 06/14/2016 ([id number]) OFFICE/OUTPATIENT VISIT EST Diagnosis: Acute bronchitis, unspecified[ICD10: J20.9] Sammi HYMAN DO [facility] CPT-4: 28342 06/13/2016 ([id number]) OFFICE/OUTPATIENT VISIT EST Diagnosis: Essential (primary) hypertension[ICD10: I10] Neela HYMAN DO [facility] CPT-4: 39657 05/14/2016 ([id number]) OFFICE/OUTPATIENT VISIT EST Diagnosis: Essential (primary) hypertension[ICD10: I10] Neela HYMAN DO [facility] CPT-4: 05917 04/29/2016 ([id number]) OFFICE/OUTPATIENT VISIT EST Diagnosis: Unspecified abdominal pain[ICD10: R10.9] Diagnosis: Left lower quadrant pain[ICD10: R10.32] Diagnosis: Left upper quadrant pain[ICD10: R10.12] Diagnosis: Essential (primary) hypertension[ICD10: I10] Neela HYMAN DO [facility] CPT-4: 38336 04/22/2016 ([id number]) OFFICE/OUTPATIENT VISIT EST Diagnosis: Type 2 diabetes mellitus without complications[ICD10: E11.9] Diagnosis: Mixed hyperlipidemia[ICD10: E78.2] Diagnosis: Essential (primary) hypertension[ICD10: I10] Neela HYMAN DO [facility] CPT-4: 18157 04/01/2016 ([id number]) OFFICE/OUTPATIENT VISIT EST Diagnosis: Type 2 diabetes mellitus with hyperglycemia[ICD10: E11.65] Diagnosis: Mixed hyperlipidemia[ICD10: E78.2] Diagnosis: Essential (primary) hypertension[ICD10: I10] Neela MURILLO Octavio HYMAN DO [facility] CPT-4: 00813 11/30/2015 ([id number]) OFFICE/OUTPATIENT VISIT EST Diagnosis: Type 2 diabetes mellitus with diabetic neuropathy, unspecified[ICD10: E11.40] Diagnosis: Essential (primary) hypertension[ICD10: I10] Diagnosis: Mixed hyperlipidemia[ICD10: E78.2] Neela FRIEND ASHER HYMAN DO [facility] CPT-4: 40150 08/29/2015 ([id number]) OFFICE/OUTPATIENT VISIT EST Diagnosis: COUGH[ICD10: R05] Diagnosis: Wheezing[ICD10: R06.2] Diagnosis: Type 2 diabetes mellitus with diabetic neuropathy, unspecified[ICD10: E11.40] Neela MURILLO JulissaMendez YENNI ARTHUR [facility] CPT-4: 87984 08/14/2015 ([id number]) OFFICE/OUTPATIENT VISIT EST Diagnosis: Other seasonal allergic rhinitis[ICD10: J30.2] Diagnosis: Dyspnea, unspecified[ICD10: R06.00] Diagnosis: Wheezing[ICD10: R06.2] Sammi MURILLO Octavio HYMAN DO [facility] CPT-4: 93616 08/09/2015 ([id number]) OFFICE/OUTPATIENT VISIT EST Diagnosis: Essential (primary) hypertension[ICD10: I10] Diagnosis: Type 2 diabetes mellitus with hyperglycemia[ICD10: E11.65] Diagnosis: Mixed hyperlipidemia[ICD10: E78.2] Neela STERLING Octavoi HYMAN [employer] [facility] CPT-4: 16891 05/22/2015 ([id number]) OFFICE/OUTPATIENT VISIT EST Diagnosis: 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] Diagnosis: - I - HYPERTENSION[ICD9: 401.9] Diagnosis: - I - HYPERLIPIDEMIA NEC/NOS[ICD9: 272.4] Diagnosis: Left hand paresthesia[ICD9: 782.0] Neela STERLING Julissa. 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] Neela HYMAN [facility] CPT-4: 57596 11/07/2014 ([id number]) OFFICE/OUTPATIENT VISIT EST Diagnosis: ALLERGIC RHINITIS[ICD9: 477.9] Diagnosis: WHEEZING[ICD9: 786.07] Neela Duarte [employer] [facility] CPT-4: 61488 10/04/2014 ([id number]) OFFICE/OUTPATIENT VISIT EST Diagnosis: BRONCHITIS, ACUTE[ICD9: 466.0] Diagnosis: WHEEZING[ICD9: 786.07] Loren Duarte [facility] CPT-4: 64421 09/22/2014 ([id number]) OFFICE/OUTPATIENT VISIT EST Diagnosis: DYSPNEA[ICD9: 786.09] Diagnosis: WHEEZING[ICD9: 786.07] Diagnosis: Arrhythmia[ICD9: 427.9] Loren BUI [facility] CPT-4: 03088 09/21/2014 ([id number]) OFFICE/OUTPATIENT VISIT EST Diagnosis: DM W/O COMPLICATION TYPE II, 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] Diagnosis: - I - HYPERLIPIDEMIA NEC/NOS[ICD9: 272.4] Diagnosis: - I - HYPERTENSION[ICD9: 401.9] Neela Sergegemmainna NEELA Octavio HYMAN [facility] CPT-4: 37532 06/28/2014 OFFICE/OUTPATIENT VISIT EST Diagnosis: SINUSITIS, ACUTE[ICD9: 461.9] Diagnosis: OTITIS MEDIA NOS[ICD9: 382.9] Sarah Sunshine [facility]ELA [facility]: 19890 06/10/2014 ([id number]) OFFICE/OUTPATIENT VISIT EST Diagnosis: 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] Diagnosis: - I - HYPERLIPIDEMIA NEC/NOS[ICD9: 272.4] Diagnosis: - I - HYPERTENSION[ICD9: 401.9] Neela MURILLO Octavio HYMAN [facility] CPT-4: 98641 03/29/2014 ([id number]) OFFICE/OUTPATIENT VISIT EST Diagnosis: 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] Diagnosis: - I - HYPERTENSION[ICD9: 401.9] Diagnosis: - I - HYPERLIPIDEMIA NEC/NOS[ICD9: 272.4] Diagnosis: Hand lesion[ICD9: 709.9] Neela MADRIGAL [facility] CPT-4: 19927 11/30/2013 ([id number]) OFFICE/OUTPATIENT VISIT EST Diagnosis: 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] Diagnosis: HYPERLIPIDEMIA NEC/NOS[ICD9: 272.4] Diagnosis: HYPERTENSION[ICD9: 401.9] Neela VASQUEZ [employer] [facility] CPT-4: 36651 08/03/2013 ([id number]) OFFICE/OUTPATIENT VISIT EST Diagnosis: DM W/O COMPLICATION TYPE II, 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] Diagnosis: HYPERTENSION[ICD9: 401.9] Diagnosis: HYPERLIPIDEMIA NEC/NOS[ICD9: 272.4] Neela GREGORIO SMendez ZHANG [employer] [facility] CPT-4: 53624 04/06/2013 ([id number]) OFFICE/OUTPATIENT VISIT EST Diagnosis: 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] Diagnosis: HYPERLIPIDEMIA NEC/NOS[ICD9: 272.4] Diagnosis: HYPERTENSION[ICD9: 401.9] Neela VASQUEZ [employer] [facility] CPT-4: 84686 12/01/2012 ([id number]) OFFICE/OUTPATIENT VISIT EST Diagnosis: 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] Diagnosis: HYPERTENSION[ICD9: 401.9] Diagnosis: HYPERLIPIDEMIA NEC/NOS[ICD9: 272.4] Neela ZHANG [employer] [facility] CPT-4: 16601 08/04/2012 ([id number]) OFFICE/OUTPATIENT VISIT EST Diagnosis: URINARY FREQUENCY[ICD9: 788.41] Neelasabina MIRZALINE Octavio HYMAN [employer] CPT-4: 16379 06/01/2012 OFFICE/OUTPATIENT VISIT EST Diagnosis: Agitation[ICD9: 307.9] Diagnosis: Frequent urination[ICD9: 788.41] Janet Jean Baptiste NEELA JulissaMendez [facility] CPT-4: 74705 05/29/2012 OFFICE/OUTPATIENT VISIT EST Diagnosis: SINUSITIS, ACUTE[ICD9: 461.9] Diagnosis: OTALGIA[ICD9: 388.70] Neela MURILLO JulissaMendez [facility] CPT-4: 60010 05/25/2012 OFFICE/OUTPATIENT VISIT EST Diagnosis: DM W/O COMPLICATION TYPE II, 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] Diagnosis: HYPERTENSION[ICD9: 401.9] Diagnosis: HYPERLIPIDEMIA NEC/NOS[ICD9: 272.4] Neela GREGORIO SMendez [facility] CPT-4: 32789 04/07/2012 OFFICE/OUTPATIENT VISIT EST Diagnosis: FINGER INJURY[ICD9: 959.5] Janet Markel MURILLO JulissaMendez [facility] CPT-4: 35516 12/16/2011 ([id number]) OFFICE/OUTPATIENT VISIT EST Diagnosis: DM W/O COMPLICATION TYPE II, 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] Diagnosis: HYPERTENSION[ICD9: 401.9] Diagnosis: HYPERLIPIDEMIA NEC/NOS[ICD9: 272.4] Neela GREGORIO S. [facility] CPT-4: 41229 12/03/2011 ([id number]) OFFICE/OUTPATIENT VISIT EST Diagnosis: 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] Diagnosis: HYPERLIPIDEMIA NEC/NOS[ICD9: 272.4] Diagnosis: HYPERTENSION[ICD9: 401.9] Neela Cunningham SREGE NDER [facility] CPT-4: 13296 08/29/2011 OFFICE/OUTPATIENT VISIT EST Diagnosis: 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] Diagnosis: HYPERLIPIDEMIA NEC/NOS[ICD9: 272.4] Diagnosis: HYPERTENSION[ICD9: 401.9] Neela MURILLO SMendez [facility] CPT-4: 20846 05/30/2011 OFFICE/OUTPATIENT VISIT EST Diagnosis: SKIN SENSATION DISTURB[ICD9: 782.0] Neela GREGORIO S. [facility] CPT-4: 29966 01/29/2011 OFFICE/OUTPATIENT VISIT EST Diagnosis: SKIN SENSATION DISTURB[ICD9: 782.0] Neela [facility]REGORIO [facility] CPT-4: 47261 01/14/2011 OFFICE/OUTPATIENT VISIT EST Neela [facility] CPT- 4: 21905 01/01/2011 OFFICE/OUTPATIENT VISIT EST Neela [facility] CPT- 4: 32039 11/29/2010 ([id number]) OFFICE/OUTPATIENT VISIT EST Neela HORAN SMendez [facility] CPT-4: 98779 08/28/2010 ([id number]) OFFICE/OUTPATIENT VISIT, EST Neela WILDE SMendez [facility] CPT-4: 16516 06/05/2010 ([id number]) OFFICE/OUTPATIENT VISIT, EST Neela W[facility]DE [facility] CPT-4: 88573 02/05/2010 ([id number]) OFFICE/OUTPATIENT VISIT, EST Neela W[facility]DE [facility] CPT-4: 19566 10/09/2009 ([id number]) OFFICE/OUTPATIENT VISIT, EST Neela W[facility]DE [facility] CPT-4: 31205 08/22/2009 Plan of Care Planned Activity Notes [...] : E11.65 08/30/2019 Visit Diagnosis Plan: Chronic obstructiv e [...] : J44.1 08/10/2019 Appointment: Neela Hyman WPtel: [address] [place] [address] ACUTE ILLNESS 08/10/2019 Visit Diagnosis Plan: Sore on toe Discussion: Keep farhat an/dry Keflex Notify if worsens ICD-9 : 709.9 ICD-10 : L98.9 07/06/2019 Appointment: Neela Hyman WPtel: [address] [place] [address] ACUTE ILLNESS 07/06/2019 Patient Education: Makenzieir- [employer] Blue [id number] [phone] https://www.Snapflow/AdChina/resources/getResource/61/0fe528kz-65i1-7x56-72 Completed 07/06/2019 Visit Diagnosis Plan: Advanced chronic obstructive pul monary disease Discussion: Continue oxygen and pulmonary rehab Follow Up: 3 months ICD-9 : 496 ICD-10 : J44.9 05/10/2019 Visit Diagnosis Plan: Lymphoma involving lung Discussi on: Doing weekly lab and chemo ICD-9 : 202.82 ICD-10 : C85.99 05/10/2019 Appointment: Neela Hyman WPtel: [address] [place] [address] FOLLOW UP 05/10/2019 Appointment: Neela Hyman WPtel: [address] [place] [address] he called 04/14/19-- he was at physical [...] : E87.6 03/29/2019 Appointment: Neela Hyman WPtel: [address] [place], [place] [phone] Hospital Follow Up 03/29/2019 Appointment: Neela Hyman WPtel: [address] [place], [place] [phone] [place] INJECTION 03/04/2019 Visit Diagnosis Plan: Chronic obstructiv e pulmonary disease with (acute) exacerbation Discussion: Increase SVNS with duoneb to QID Prednisone taper ICD-9 : 491.21 ICD-10 : J44.1 01/05/2019 Visit Diagnosis Plan: Other nonspecific abnormal findi ng of lung field Discussion: Referral to pulmonology--will likely need bronchoscopy--path results discussed ICD-9 : 786.6 ICD-10 : R91.8 01/05/2019 Appointment: Neela Hyman WPtel: [address] [place] [address] FOLLOW UP 01/05/2019 Patient Education: prednisone- [employer] Coupon [phone] https://www.Snapflow/samplemd/resources/getResource/61/w6rn3586-137v-1q60-st Completed 01/05/2019 Care Plan: Referral Order SNOMED-CT : 30 [id number] Pending 01/05/2019 Appointment: Neela Hyman WPtel: [address] [place], [place] [phone] [place] CANCELED 12/21/2018 Visit Diagnosis Plan: Tinea corporis Discussion: Diflu can--hold simvastatin and fenofibrate while taking ICD-9 : 110.5 ICD-10 : B35.4 12/09/2018 Visit Diagnosis Plan: Solitary pulmonary nodule Discus esmer: CT guided needle biopsy of RUL lung mass ICD-9 : 793.11 ICD-10 : R91.1 12/09/2018 Appointment: Neela Hyman WPtel: [address] [place] [address] [place] FOLLOW UP 12/09/2018 Appointment: Gely Harp [address] [address] [place] NO SHOW 12/01/2018 Visit Diagnosis Plan: [...] : J44.9 11/24/2018 Appointment: Neela Hyman WPtel: [address] [place] [address] FOLLOW UP 11/24/2018 Care Plan: PET IMAGE FULL BODY LOINC : 4 2711-2 Pending 11/24/2018 Appointment: Neela Hyman WPtel: [address] [place] [address] [place] Consult 09/21/2018 Visit Diagnosis Plan: Pneumonia, unspecified organism Discussion: Patient clinically improved. Recent CT scan from 09/07 showed unresolved right upper lobe pneumonia. Finished another 7 days of levaquin. Will repeat CBC early next week. Order sent with patient to get done at [facility]. FU CT recommended in 4 weeks. Patient states understanding. ICD-9 : 486 ICD-10 : J18.9 09/16/2018 Appointment: Amita Henderson [address] [phone] [place] FOLLOW UP 09/16/2018 Visit Diagnosis Plan: Pneumonia, unspecified organism Discussion: Clinically patient feels and looks much better but need CT scan of chest due to ongoing round pneumonia in association with his known lymphoma ICD-9 : 486 ICD-10 : J18.9 09/03/2018 Appointment: Neela Hyman WPtel: [address] [place], [place] [address] [place] FOLLOW UP 09/03/2018 Care Plan: CT [...] ICD-10 : Z87.01 08/27/2018 Appointment: Amita Henderson [facility] [facility] FOLLOW UP 08/27/2018 Visit Diagnosis Plan: Other [...] ICD-10 : I10 08/13/2018 Appointment: Amita Henderson [address] [place], [place] [id number] [facility] FOLLOW UP 08/13/2018 Appointment: Amita Henderson [address] [place], [place] [address] CANCELED 08/13/2018 Patient Education: prednisone- [employer] Coupon [phone] https://www.Snapflow/sampleSPOC Medical/resources/getResource/61/hg95ue3j-8q84-0ex0-5x Completed 08/13/2018 Visit Diagnosis Plan: Other specified [...] ICD-10 : J18.9 08/11/2018 Appointment: Amita Henderson [address] [place], [place] [phone] ACUTE ILLNESS 08/11/2018 Care Plan: CHEST X-RAY 2VW FRONTAL&LATL LOINC : 80657-6 Pending 07/20/2018 Visit Diagnosis Plan: Dyspnea, unspecified Discussion: CXR- to be completed at the hospital. Will call with results and any adjustments in plan. Solumedrol 125 administered in clinic Prednisone 20 mg BID x 5 days- start tomorrow ICD-9 : 786.09 ICD-10 : R06.00 07/16/2018 Appointment: Amita Henderson [address] [place], [place] [address] ACUTE ILLNESS 07/16/2018 Patient Education: prednisone- [employer] Coupon [id number] https://www.Snapflow/samplemd/resources/getResource/61/32r6q3kq-bl40-4ny5-c2 Completed 07/16/2018 Visit Diagnosis Plan: Acute bronchitis due to other sp ecified organisms Discussion: Kenalog 40 mg IM administered in clinic. Doxycycline called into [facility]. Take as directed. Continue nebulizer and Trelegy. Follow up if symptoms are not improving with treatment regimen. Patient states understanding of all instruction. ICD-9 : 466.0 ICD-10 : J20.8 07/13/2018 Appointment: Amita Henderson [facility]0 [facility] ACUTE ILLNESS 07/13/2018 Patient Education: doxycycline hyclate- [employer] Cou saritha [id number] https://www.AdChina.[employer] Comunicaciones/samplemd/resources/getResource/61/0d491a56-0u9f-3331-7t Completed 07/13/2018 Care Plan: [place] : [address]-4 Pending 07/13/2018 Care Plan: CBC Pending 07/13/2018 Care Plan: A1C HPLC LOINC : 01953-4 Pending 07/13/2018 Visit Diagnosis Plan: Mixed hyperlipidemia [...] I10 06/03/2018 Appointment: Neela Hyman WPtel: [address] [facility] FOLLOW UP 06/03/2018 Visit Diagnosis Plan: Chronic [...] ICD-10 : J44.9 05/04/2018 Appointment: Gely Harp [address] [place] [address] ACUTE ILLNESS 05/04/2018 Visit Diagnosis Plan: Localized edema Discussion: Cont inue lasix and potassium at every other day Recheck lab and fwup in 3mos Follow Up: 3 months ICD-9 : 782.3 ICD-10 : R60.0 03/03/2018 Appointment: Neela Hyman WPtel: [address] [place] [address] FOLLOW UP 03/03/2018 Patient Education: Patient Medication Summary Completed 03/03/2018 Visit Diagnosis Plan: Localized edema Discussion: Finch ge lasix and potassium to every other day Check Chem 7 in 2 weeks and fwup ICD-9 : 782.3 ICD-10 : R60.0 02/17/2018 Appointment: Neela Hyman WPtel: [address] [place] [address] FOLLOW UP 02/17/2018 Patient Education: Patient Medication [...] 782.3 ICD-10 : R60.0 02/10/2018 Appointment: Neela Hyamn WPtel: [address] [place] [address] [place] FOLLOW UP 02/10/2018 Patient Education: Patient [...] L02.212 11/05/2017 Appointment: [facility] [address] [facility] [facility] 11/05/2017 Patient Education: Patient Medication Summary Completed 11/05/2017 Patient Education: Patient Medication Summary Completed 11/03/2017 Care Plan: [place] : 117[address]-5 Pending 11/03/2017 Care Plan: LIPID PANEL LOINC : 69431-5 Pending 11/03/2017 Care Plan: CBC Pending 11/03/2017 Care Plan: A1C HPLC LOINC : 28631-8 Pending 11/03/2017 Visit Diagnosis Plan: Allergic urticaria [...] : L50.0 09/09/2017 Appointment: [facility] [facility] 09/09/2017 Patient Education: Patient Medication Summary Completed 09/09/2017 Visit Diagnosis Plan: Acute gastritis without bleeding Discussion: eric flagyl sent out to cover for diverticulitis [...] ICD-10 : R59.1 08/07/2017 Appointment: Gely Harp [address] [place] [address] Follow Up 08/07/2017 Patient Education: Patient Medication [...] [facility] FOLLOW UP 08/04/2017 Patient Education: Patient Medication Summary Completed 08/04/2017 Patient Education: Patient Medication Summary Completed 07/31/2017 Care Plan: [place] : [address]-0 Pending 07/31/2017 Care Plan: ASSAY THYROID STIM HORMONE Pen ding 07/31/2017 Care Plan: LIPID PANEL LOINC : 19590-4 Pending 07/31/2017 Care Plan: CBC Pending 07/31/2017 Care Plan: A1C HPLC LOINC : 75958-2 Pending 07/31/2017 Patient Education: Patient Medication Summary Completed 06/19/2017 Patient Education: Patient Medication Summary Completed 06/09/2017 Care Plan: CT SOFT TISSUE [place] : 47[address]-9 Pending 06/09/2017 Visit Diagnosis Plan: Acute sialoadenitis [...] ICD-10 : B02.9 06/04/2017 Appointment: Gely Harp [address] [place] [address] ACUTE ILLNESS 06/04/2017 Patient Education: Patient Medication [...] ICD-10 : B02.9 06/02/2017 Appointment: Gely Harp [address] [place], [place] [phone] ACUTE ILLNESS 06/02/2017 Patient Education: Patient Medication [...] Summary Completed 05/01/2017 Care Plan: A1C HPLC [facility] : 15245-1 Pending 05/01/2017 Visit Diagnosis Plan: Chronic obstructiv [...] ICD-10 : H61.23 04/10/2017 Appointment: Gely Harp [address] [place] [address] ACUTE ILLNESS 04/10/2017 Patient Education: Patient Medication Summary Completed 04/10/2017 Appointment: Neela Hyman WPtel: [facility]2 [facility] INJECTION 03/28/2017 Patient Education: Patient Medication Summary [...] 496 ICD-10 : J44.9 02/03/2017 Appointment: Neela Hyman: [facility]5 [facility] [place] FOLLOW UP 02/03/2017 Patient Education: Patient Medication Summary Completed 02/03/2017 Patient Education: Patient Medication Summary Completed 01/30/2017 Care Plan: [place] : [address]-0 Pending 01/30/2017 Care Plan: LIPID PANEL LOINC : 13635-8 Pending 01/30/2017 Care Plan: CBC Pending 01/30/2017 Care Plan: A1C HPLC LOINC : 93599-0 Pending 01/30/2017 Care Plan: ASSAY OF PSA [...] : E11.65 10/30/2016 Appointment: Neela Hyman WPtel: [address] [place], [place] [phone] [place] 6/6 lm ~sl 6/ confirmed~sl FOLLOW UP 11/2016 Patient Education: Patient Medication Summary Completed 10/30/2016 Patient Education: Patient Medication Summary Completed 10/24/2016 Visit Diagnosis Plan: Acute bronchitis, unspecified Di scussion: Patient sounds and looks much improved Continue current regimen Keep appt with Dr Levi for Friday Follow up PRN ICD-9 : 466.0 ICD-10 : J20.9 08/30/2016 Appointment: Sammi Najera [address] [place], [place] [phone] [place] 4/6 rang and rang rang 4/7 [...] J20.9 08/27/2016 Appointment: Sammi Najera [address] [facility] FOLLOW UP 08/27/2016 Patient Education: Patient Medication Summary Completed 08/27/2016 Care Plan: Referral Order SNOMED-CT : 30 [id number] Pending 08/27/2016 Visit Diagnosis Plan: Type 2 [...] : I10 07/02/2016 Appointment: Neela Hyman WPtel: [address] [place], [place] [phone] 07/01 rang and rang`sl FOLLOW UP 7 Patient Education: Patient Medication Summary Completed 07/02/2016 Patient Education: Patient Medication Summary Completed 06/27/2016 Care Plan: LIPID PANEL LOINC : 52632-9 Pending 06/27/2016 Care Plan: [place] : 55[address]-0 Pending 06/27/2016 Care Plan: A1C HPLC LOINC : 39055-8 Pending 06/27/2016 Visit Diagnosis Plan: Acute bronchitis, [...] ICD-10 : J20.9 06/14/2016 Appointment: Sammi Najera [address] [place], [place] [phone] FOLLOW UP 06/14/2016 Patient Education: Patient Medication [...] ICD-10 : J20.9 06/13/2016 Appointment: Sammi Najera [address] [place] [address] ACUTE ILLNESS 06/13/2016 Patient Education: Patient Medication Summary Completed 06/13/2016 Care Plan: CHEST X-RAY 2VW FRONTAL&LATL LOINC : 83011-8 Pending 06/13/2016 Visit Plan: Increase metoprolol to 100mg po BID BP readings and BP check in 1month 05/14/2016 Appointment: Neela Hyman WPtel: [address] [place] [address] 05/13 rang and rang`sl FOLLOW UP 6 Patient Education: Patient Medication Summary Completed 05/14/2016 Visit Plan: Increase metoprolol to 50mg BID BP check in 1 week f/u BP appt 2 weeks consider musculoskeletal if pain returns 04/29/2016 Appointment: Neela Hyman WPtel: [address] [place], [place] [address] 04/25 confimred~sl FOLLOW UP 04/29/2016 Patient Education: Patient Medication Summary Completed 04/29/2016 Visit Plan: Stat CT scan of abdomen/pelv is to look for stone Hydrate and use tramadol prn Increase metoprolol to 25mg po BID Will see urology pending CT scan results 04/22/2016 Appointment: Neela Hyman WPtel: [address] [place], [place] [address] 04/17 confirmed-sp ACUTE ILLNESS 04/22/2016 Patient Education: [...] flu shot 04/01/2016 Appointment: Neela Hyman WPtel: [address] [place] [address] FOLLOW UP 04/01/2016 Patient Education: Patient Medication Summary Completed 04/01/2016 Patient Education: [facility] - Saving AutoInj - 18-64 - Dynamic Heber l ID Completed 04/01/2016 Patient Education: Patient Medication Summary Completed 03/28/2016 Care Plan: A1C HPLC LOINC : 75768-2 Pending 03/28/2016 Care Plan: COMPREH[place]AB[place] : 000[address]-8 Pending 03/28/2016 Visit Plan: Lab discussed Continue curre nt meds Accuchecks daily 11/30/2015 Appointment: Neela Hyman WPtel: [address] [place], [place] [phone] / confirmed~sl FOLLOW UP 11/30/2015 Patient Education: Patient Medication Summary Completed 11/30/2015 Appointment: Neela Hyman WPtel: [address] [place], [place] [phone] RESCHEDULED 11/28/2015 Patient Education: Patient Medication Summary Completed 11/23/2015 Care Plan: [place] : 299[address]-6 Pending 11/23/2015 Care Plan: LIPID PANEL LOINC : 19473-1 Pending 11/23/2015 Care Plan: CBC Pending 11/23/2015 Care Plan: A1C HPLC LOINC : 66233-0 Pending 11/23/2015 Visit Plan: Lab discussed Accuchecks richard ly Continue current meds Cymbalta helping with feet and mood 08/29/2015 Appointment: Neela Hyman WPtel: [phone] [facility] FOLLOW UP 08/29/2015 Patient Education: Patient Medication Summary Completed 08/29/2015 Visit Plan: Check CXR Stop all steroids and steroid inhalers Use SVN with but change to duoneb Add singulair for allergy etiology Change fluoxetine to cymbalta 60mg daily Viagra samples given to try prn--warned of no nitrates 08/14/2015 Appointment: Neela Hyman WPtel: [phone] [facility] lm to reschedule ~sl 07/27 lm ~sl 08/09 busy 08/10 fer rosales-sp Annual Well Visit 08/14/2015 Patient Education: Patient Medication Summary Completed 08/14/2015 Care Plan: CHEST X-RAY 2VW FRONTAL&LATL LOINC : 01798-0 Ordered 08/14/2015 Visit Plan: Decadron 8mg given [...] improving as expected 08/09/2015 Appointment: Sammi Najera [address] [facility] ER Follow UP 08/09/2015 Patient Education: Patient [...] with it 05/22/2015 Appointment: Neela Hyman WPtel: [address] [place], [place] [address] 05/17 confirmed~sl FOLLOW UP 05/22/2015 Patient Education: Patient Medication Summary Completed 05/22/2015 Patient Education: Patient Medication Summary Completed 05/15/2015 Visit Plan: Obtain EMGs done at [place] from when fractured left arm Lab discussed Accuchecks daily 02/13/2015 Appointment: Neela Hyman WPtel: [address] [place] [address] 02/10 confrimed FOLLOW UP 02/13/2015 Patient Education: Patient Medication Summary Completed 02/13/2015 Patient Education: Patient Medication Summary Completed 02/09/2015 Visit Plan: discussed lab add fenofibrat e 134mg po daily recheck fasting lab in 3 months, CBC, CMP, Lipids, hgb AIC 11/07/2014 Appointment: Neela Hyman WPtel: [address] [place], [place] [phone] 11/04 appt confirmed cn FOLLOW UP 015 Patient Education: Patient Medication Summary Completed 11/07/2014 Patient Education: Patient Medication Summary Completed 11/03/2014 Visit Plan: Continue loratadine 10mg richard ly Notify if symptoms return 10/04/2014 Appointment: Neela Hyman WPtel: [address] [place] [address] confirmed on 10/03 at 2:42pm FOLLOW UP 09/23 Patient Education: Patient Medication Summary Completed 10/04/2014 Appointment: Neela Hyman WPtel: [address] [place], [place] [phone] ACUTE ILLNESS 09/28/2014 Appointment: Loren Garza WPtel: [address] [place], [place] [phone] FOLLOW UP 09/22/2014 Patient Education: Patient Medication Summary Completed 09/22/2014 Appointment: Loren Garza WPtel: [address] [place], [place] [address] ACUTE ILLNESS 09/21/2014 Patient Education: Patient Medication Summary Completed 09/21/2014 Patient Education: [facility] - Saving AutoInj - 18+ - Dynamic Portal ID Completed 09/21/2014 Visit Plan: Lab discussed Continue daily accuchecks Continue current meds 06/28/2014 Appointment: Neela Hyman WPtel: [address] [place], [place] [phone] FOLLOW UP 06/28/2014 Patient Education: Patient Medication Summary Completed 06/28/2014 Patient Education: Patient Medication Summary Completed 06/23/2014 Appointment: Sarah Sunshine WPtel: [address] [place], [place] [address] ACUTE ILLNESS 06/10/2014 Patient Education: Patient Medication Summary Completed 06/10/2014 Patient Education: [facility] - Saving AutoInj - 18+ - Dynamic Portal ID Completed 06/10/2014 Visit Plan: Lab discussed Continue daily accuchecks Continue current meds 03/29/2014 Appointment: Neela Hyman WPtel: [address] [place], [place] [phone] FOLLOW UP 03/29/2014 Patient Education: Patient Medication Summary Completed 03/29/2014 Patient Education: Patient Medication Summary Completed 03/23/2014 Visit Plan: Lab discussed Continue curre nt meds and accuchecks See surgery for removal of hand lesion 11/30/2013 Appointment: Neela Hyman WPtel: [address] [place], [place] [phone] 11/29 no answer FOLLOW UP 11/30/2013 Patient Education: Patient Medication Summary Completed 11/30/2013 Visit Plan: Lab discussed Continue curre nt meds 08/03/2013 Appointment: Neela Hyman WPtel: [address] [place], [place] [phone] [place] FOLLOW UP 08/03/2013 Patient Education: Patient Medication Summary Completed 08/03/2013 Visit Plan: Lab Discussed Will continue current meds and pt will get back on diet/exercise Check lab in 4mos and fwup 04/06/2013 Appointment: Neela Hyman WPtel: [address] [place] [address] FOLLOW UP 04/06/2013 Patient Education: Patient Medication Summary Completed 04/06/2013 Visit Plan: Lab discussed Continue daily accuchecks 12/01/2012 Appointment: Neela Hyman WPtel: [address] [place] [address] 11/30 no answer FOLLOW UP 12/01/2012 Patient Education: Patient Medication Summary Completed 12/01/2012 Visit Plan: Continue current meds and da russell accuchecks Lab discussed 08/04/2012 Appointment: Neela Hyman WPtel: [address] [place] [address] FOLLOW UP 08/04/2012 Patient Education: Patient Medication Summary Completed 08/04/2012 Appointment: Neela Hyman WPtel: [address] [place] [address] UA 06/01/2012 Patient Education: Patient Medication Summary Completed 06/01/2012 Appointment: Janet Jean Baptiste WPtel: [address] [place] [address] FOLLOW UP 05/29/2012 Patient Education: Patient Medication Summary Completed 05/29/2012 Visit Plan: pt states Dr. Hyman told h is to increase his Prozac dose while she was talking to her at [facility]. Discussed that pt. should not increase or decrease dosage without 's knowledge. Pt. will seek hearing test here in town at the hearing aid place on [address]. Discussed that ear pain is likely caused by sinus pressure. Pt. will notify if no improvement. 05/25/2012 Appointment: Janet Jean Baptiste WPtel: [address] [place], [place] [phone] ACUTE ILLNESS 05/25/2012 Patient Education: Patient Medication Summary Completed 05/25/2012 Visit Plan: Continue current meds Contin ue daily accuchecks but alternate times Increase fish oil to 3gm daily 04/07/2012 Appointment: Neela Hyman WPtel: [address] [place] [address] 04/06 FOLLOW UP 04/07/2012 Patient Education: Patient Medication Summary Completed 04/07/2012 Appointment: Janet Jean Baptiste WPtel: [address] [place] [address] ACUTE ILLNESS 12/16/2011 Patient Education: Patient Medication Summary Completed 12/16/2011 Visit Plan: Increase 12/03/2011 Appointment: Neela Hyman WPtel: [address] [place] [address] FOLLOW UP 12/03/2011 Patient Education: Patient Medication Summary Completed 12/03/2011 Visit Plan: Continue current meds Contin ue accuchecks 08/29/2011 Appointment: Neela Hyman WPtel: [address] [place] [address] FOLLOW UP 08/29/2011 Patient Education: Patient Medication Summary Completed 08/29/2011 Visit Plan: Continue current meds except restart zocor 05/30/2011 Appointment: Neela Hyman WPtel: [address] [place] [address] FOLLOW UP 05/30/2011 Patient Education: Patient Medication Summary Completed 05/30/2011 Visit Plan: Continue tennis elbow strap May go back to weight-lifing--light weigts every other day 01/29/2011 Appointment: Neela Hyman WPtel: [address] [place] [address] [place] FOLLOW UP 01/29/2011 Patient Education: Patient Medication Summary Completed 01/29/2011 Visit Plan: Continue tennis elbow strap and anti-inflammatories 01/14/2011 Appointment: Neela Hyman WPtel: [address] [place], [place] [phone] FOLLOW UP 01/14/2011 Appointment: Janet Jean Baptiste WPtel: [address] [place], [place] [phone] NEW PATIENT 01/14/2011 Patient Education: Patient Medication Summary Completed 01/14/2011 Appointment: Neela Hyman WPtel: [address] [place], [place] [phone] FOLLOW UP 01/08/2011 Appointment: Neela Hyman WPtel: [address] [place], [place] [phone] FOLLOW UP 01/01/2011 Appointment: Neela Hyman WPtel: [address] [place] [address] UA 01/01/2011 Patient Education: Patient Medication Summary [...] given. 11/29/2010 Appointment: Janet Jean Baptiste WPtel: [address] [place] [address] ACUTE ILLNESS 11/29/2010 Patient Education: Patient Medication Summary Completed 11/29/2010 Visit Plan: Cont current meds Check CMP, Lipids, HbA1C 08/28/2010 Appointment: Neela Hyman WPtel: [address] [place], [place] [phone] FOLLOW UP 08/28/2010 Patient Education: Patient Medication Summary Completed 08/28/2010 Visit Plan: Cont current meds and accuch ecks Add Zocor 40mg q HS Check Lipids and HbA1C in 3mos 06/05/2010 Appointment: Neela Hyman WPtel: [address] [place], [place] [phone] FOLLOW UP 06/05/2010 Patient Education: Patient Medication Summary Completed 06/05/2010 Visit Plan: Check Lipids and HbA1C 02/05/2010 Appointment: Neela Hyman WPtel: [address] [place], [place] [phone] [place] FOLLOW UP 02/05/2010 Patient Education: Patient Medication Summary Completed 02/05/2010 Visit Plan: HbA1C in 3mos. Continue Accu checks BID alternating times. Check HbA1C, CMP, Lipids 10/09/2009 Appointment: Neela Hyman WPtel: [address] [place], [place] [phone] FOLLOW UP 10/09/2009 Patient Education: Patient Medication Summary Completed 10/09/2009 Visit Plan: Saline nasal flushes prn. Ty lenol/Motrin prn headache. Notify if persists/symptoms worsening. 08/22/2009 Appointment: Neela Hyman WPtel: [address] [place], [place] [phone] ACUTE ILLNESS 08/22/2009 Patient Education: Patient Medication Summary Completed 08/22/2009 Referral: Aubrey Rand WPtel: [address] [place], [place] [phone] [place] Office will verfy his insurance then they will contact patient Completed Referral: Shahbaz Brennan WPtel: [address] [facility] [id number] [place] Referral Completed Referral: Ion Levi [address] [place] [address] C&D [id number] [place] Referral Appointment Requested Referral: Ion Levi [address] C&D [id number] [place] Referral Appointment Requested Instructions Comment . [...] with it . Obtain EMGs done at [place] from when fractured left arm Lab discussed [...] while she was talking to her at [facility]. Discussed that pt. should not increase or decrease dosage without Dr's knowledge. Pt. will seek hearing test here in town at the hearing aid place on [address]. Discussed that ear pain is likely caused [...]
--- OUTSIDE RECORDS SUMMARY | 2019-12-09 09:06 | XMS REPORT | CCD ---
Author Author Michael Hyman D.O. Organization [facility] Address [address] [place] [address] Phone Care Team Providers Care Respiratory Therapist Name Role Phone Neela Hyman D.O., PP Unavailable CCM Unavailable Summary Purpose Interface Exchange Insurance Providers Payer name Policy type / Coverage type Covered democrat ID Effective Begin Date Effective End Date ABS FOR [employer] Commercial Insurance [id number] Unknown Family History Family History data not found Social History Social History Element Codes Description Effective Dates Marital status Unknown 05/30/[address]: 1264886 Former smoker quit 25 years ago 01/01/2011 Allergies, Adverse Reactions, Alerts Substance Reaction Codes Entered Date Inactivated Date Status CODEINE Unknown 08/22/2009 No Inactive Date Active Problems Condition Codes Effective Dates Condition Status Chronic obstructive pulmonary disease with (acute) exa cerbation ICD-9: 491.21 ICD-10: J44.1 07/16/2018 Active Sore on toe ICD-9: 709.9 ICD-10: L98.9 07/06/2019 Active Advanced chronic obstructive pulmonary disease ICD-9: 496 ICD-10: J44.9 10/30/2016 Active 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 ICD-10: [...] corporis ICD-9: 110.5 ICD-10: B35.4 12/09/2018 Active Essential (primary) hypertension ICD-9: 401.9 ICD-10: I10 11/30/2013 Active Other fatigue ICD-9: 780.79 ICD-10: R53.83 07/31/2017 Active Type 2 diabetes mellitus with hyperglycemia ICD-9: 250 .02 ICD-10: E11.65 06/28/2014 Active COUGH ICD-9: 786.2 ICD-10: R05 08/13/2015 [...] systems ICD-9: 514 ICD-10: R09.89 08/11/2018 Active Mixed hyperlipidemia ICD-9: 272.4 ICD-10: E78.2 11/30/2013 Active Localized edema ICD-9: 782.3 ICD-10: R60.0 [...] Fill Instructions Lasix 40 mg tablet RxNorm: 764911 1 Tablet(s) Oral QD 08/24/201910/25 Active duloxetine 60 mg capsule,delayed release RxNorm: 600582 TAKE ONE CAPSULE BY MOUTH EVERY DAY 08/16/2019 02/11/2020 Active metoprolol succinate ER 100 mg tablet,extended release 24 hr RxNorm: 849105 TAKE ONE TABLET BY MOUTH TWICE A DAY 08/16/2019 05/11/2020 Active potassium chloride ER 20 mEq tablet,extended release RxNorm: 260029 1 Tablet(s) Oral two times a day 07/22/2019 10/19/2019 Active metformin 500 mg tablet RxNorm: 148228 2 Tablet(s) Oral two afshan es a day 07/13/2019 09/11/2019 Active Singulair 10 mg tablet RxNorm: 537711 TAKE ONE TABLET BY MOUTH EVERY EVENING 07/06/2019 01/02/2020 Active Reselected prescribe r from [facility] to [facility] Keflex 500 mg capsule RxNorm: 443570 1 Capsule(s) Oral three ti mes a day 07/06/2019 07/13/2019 Inactive Singulair 10 mg tablet RxNorm: 648968 TAKE ONE TABLET BY MOUTH EVERY EVENING 06/22/2019 07/05/2019 Inactive Reselected prescribe r from PEG MAHER to [facility] Zocor 40 mg tablet RxNorm: 721183 TAKE ONE TABLET BY M OUTH EVERY NIGHT AT BEDTIME 06/21/2019 11/17/2019 Active MagOx 400 mg (241.3 mg magnesium) tablet RxNorm: 408537 1 Table t(s) Oral QD 06/21/2019 08/20/2019 Inactive diltiazem ER 360 mg capsule,24 hr,extended release RxNorm: 8 76114 TAKE ONE CAPSULE BY MOUTH AT BEDTIME -REPLACES 300MG 05/17/2019 11/12/2019 Active MagOx 400 mg (241.3 mg magnesium) tablet RxNorm: 305223 1 Table t(s) Oral QD 04/26/2019 06/20/2019 Inactive Lasix 40 mg tablet RxNorm: 299981 40 MG PO DAILY 04/12/2019 08/23/2019 Inactive Benicar 40 mg tablet RxNorm: 066905 1 Tablet(s) Oral QD 03/29/2019 Active potassium chloride ER 20 mEq tablet,extended release RxNorm: 976232 1 Tablet(s) Oral two times a day 03/29/2019 06/27/2019 Inactive potassium chloride ER 20 mEq tablet,extended release RxNorm: 388318 1 Tablet(s) Oral QD 03/29/2019 03/28/2019 Inactive Benicar 40 mg tablet RxNorm: 057016 1 Tablet(s) Oral QD 03/29/2019 Inactive MagOx 400 mg (241.3 mg magnesium) tablet RxNorm: 148104 1 Table t(s) Oral QD 03/29/2019 04/25/2019 Inactive metformin 500 mg tablet RxNorm: 013812 2 Tablet(s) Oral two afshan es a day 03/29/2019 07/12/2019 Inactive fenofibrate micronized 134 mg capsule RxNorm: 066524 TA KE ONE CAPSULE BY MOUTH EVERY DAY 03/05/2019 08/31/2019 Active duloxetine 60 mg capsule,delayed release RxNorm: 566785 1 Capsu le(s) PO QD 01/28/2019 07/26/2019 Inactive Trelegy Ellipta 100 mcg-62.5 mcg-25 mcg powder for inhalatio n RxNorm: 8454710 1 Puff(s) INH QD 01/06/2019 12/31/2019 Active 90 day supply prednisone 20 mg tablet RxNorm: 018521 1 Tablet(s) PO T ID for 3 days then 1 po BID for 3 days then 1 po daily for 3 days 01/05/2019 03/28/2019 Inacti ve metformin ER 1,000 mg tablet,extended release 24hr RxNorm: 1 141388 TAKE TWO TABLETS (1000MG) BY MOUTH TWO TIMES A DAY 12/22/2018 07/13/2019 Inacti ve Diflucan 100 mg tablet RxNorm: 845287 1 Tablet(s) PO QD 12/09/2018 Inactive prednisone 20 mg tablet RxNorm: 887012 1 Tablet(s) PO B ID for 4 days then 1 po daily for 4 days 11/24/2018 01/04/2019 Inactive albuterol sulfate 2.5 mg/3 mL (0.083 %) solution for n ebulization RxNorm: 868898 3 Milliliter(s) INH ONE VIAL VIA NEBULIZER EVERY 4 HOURS 019 07/21/2019 Inactive [AttnRPh: Saving apply/adjudicate RxGRP: SG20 RxBIN:[id number] RxPCN: ID#:[id number]] Trelegy Ellipta 100 mcg-62.5 mcg-25 mcg powder for inhalatio n RxNorm: 5938771 1 Puff(s) INH QD 10/27/2018 01/06/2019 Inactive 90 day supply diltiazem ER 360 mg capsule,24 hr,extended release RxNorm: 8 69760 TAKE ONE CAPSULE BY MOUTH AT BEDTIME -REPLACES 300MG 10/13/2018 04/10/2019 Inactive metoprolol succinate ER 100 mg tablet,extended release 24 hr RxNorm: 791268 TAKE ONE TABLET BY MOUTH TWICE A DAY 10/13/2018 07/09/2019 Inactive Trelegy Ellipta 100 mcg-62.5 mcg-25 mcg powder for inhalatio n RxNorm: 2389234 INHALE ONE PUFF ONCE DAILY 09/07/2018 10/27/2018 Inactive Levaquin 750 mg tablet RxNorm: 975125 1 Tablet(s) PO QD 09/07/2018 Inactive Levaquin 750 mg tablet RxNorm: 980837 1 Tablet(s) PO QD 09/07/2018 Inactive prednisone 20 mg tablet RxNorm: 829637 2 Tablet(s) PO QAM 08/13/2018 08/19/2018 Inactive Levaquin 500 mg tablet RxNorm: 366919 1 Tablet(s) PO QD 08/11/2018 Inactive fenofibrate micronized 134 mg capsule RxNorm: 085942 TA KE ONE CAPSULE BY MOUTH EVERY DAY 08/10/2018 02/05/2019 Inactive prednisone 20 mg tablet RxNorm: 964303 1 Tablet(s) PO BID 07/16/2018 07/20/2018 Inactive doxycycline hyclate 100 mg capsule RxNorm: 2405138 1 Capsule(s) PO BID 07/13/2018 07/22/2018 Inactive duloxetine 60 mg capsule,delayed release RxNorm: 211095 TAKE ONE CAPSULE BY MOUTH ONCE A DAY 07/08/2018 01/28/2019 Inactive Lasix 40 mg tablet RxNorm: 329359 1 TABLET(S) PO QAM 06/08/201809/05 Inactive potassium chloride ER 20 mEq tablet,extended release(p art/cryst) RxNorm: 8615166 1 TABLET(S) PO QD 06/08/2018 09/05/2018 Inactive metformin ER 1,000 mg tablet,extended release 24hr RxNorm: 1 479989 TAKE TWO TABLETS (1000MG) BY MOUTH TWO TIMES A DAY 06/01/2018 11/27/2018 Inacti ve Benicar HCT 40 mg-25 mg tablet RxNorm: 690718 TAKE ONE TABLET BY MOUTH ONCE DAILY 05/11/2018 03/28/2019 Inactive Zocor 40 mg tablet RxNorm: 115193 TAKE ONE TABLET BY M OUTH EVERY NIGHT AT BEDTIME 05/11/2018 06/20/2019 Inactive Trelegy Ellipta 100 mcg-62.5 mcg-25 mcg powder for inhalatio n RxNorm: 8268106 1 PUFF(S) INH QD 04/06/2018 07/04/2018 Inactive diltiazem ER 360 mg capsule,24 hr,extended release RxNorm: 8 70854 1 Capsule(s) PO QHS replaces 300mg dose 03/30/2018 09/25/2018 Inactive Trelegy Ellipta 100 mcg-62.5 mcg-25 mcg powder for inhalatio n RxNorm: 6397591 1 Puff(s) INH QD 02/24/2018 02/23/2018 Inactive Trelegy Ellipta 100 mcg-62.5 mcg-25 mcg powder for inhalatio n RxNorm: 5229056 1 Puff(s) INH QD 02/24/2018 02/23/2018 Inactive Trelegy Ellipta 100 mcg-62.5 mcg-25 mcg powder for inhalatio n RxNorm: 3758306 1 Puff(s) INH QD 02/24/2018 04/05/2018 Inactive Lasix 40 mg tablet RxNorm: 604999 1 Tablet(s) PO QAM 02/10/201803/11 Inactive potassium chloride ER 20 mEq tablet,extended release(p art/cryst) RxNorm: 0944730 1 Tablet(s) PO QD 02/10/2018 03/11/2018 Inactive fenofibrate micronized 134 mg capsule RxNorm: 911978 1 Capsule( s) PO QD 01/30/2018 07/28/2018 Inactive metoprolol succinate ER 100 mg tablet,extended release 24 hr RxNorm: 128679 TAKE ONE TABLET BY MOUTH TWICE A DAY 12/30/2017 09/25/2018 Inactive metformin ER 1,000 mg tablet,extended release 24hr RxNorm: 1 230714 1 Tablet(s) PO BID 11/17/2017 05/15/2018 Inactive [SAVINGS FOR NON -COVERED DRUGS -- BIN:148522, PCN: ASPROD1, Group: XXXXX, ID# [id number], Questions: . THIS IS NOT INSURANCE.] Benicar HCT 40 mg-25 mg tablet RxNorm: 411552 1 Tablet(s) PO QD 05/10/2018 Inactive [SAVINGS FOR NON-COVERED JESU GS -- BIN:072796, PCN: ASPROD1, Group: XXXXX, ID# [id number], Questions: . THIS IS NOT INSURANCE.] Bactroban 2 % topical cream RxNorm: 590608 Application TOP BID 10/2409/02/2018 Inactive clindamycin HCl 300 mg capsule RxNorm: 229136 2 Capsule(s) PO TID 0 11/05/2017 11/18/2017 Inactive duloxetine 60 mg capsule,delayed release RxNorm: 005632 Capsule(s) TAKE ONE CAPSULE BY MOUTH ONCE DAILY 09/24/2017 09/23/2017 Inactive triamcinolone acetonide 0.1 % topical ointment RxNorm: 0345049 1 TOP BID 09/09/2017 11/04/2017 Inactive Bactrim DS 800 mg-160 mg tablet RxNorm: 085151 1 Tablet(s) PO BID 0 08/07/2017 08/13/2017 Inactive metronidazole 500 mg tablet RxNorm: 298328 1 Tablet(s) PO BID 08/0708/13/2017 Inactive diltiazem ER 360 mg capsule,24 hr,extended release RxNorm: 8 61442 1 Capsule(s) PO QHS replaces 300mg dose 08/04/2017 01/30/2018 Inactive fenofibrate micronized 134 mg capsule RxNorm: 868048 1 Capsule( s) PO QD 07/21/2017 01/30/2018 Inactive Zocor 40 mg tablet RxNorm: 818846 1 Tablet(s) PO QHS 07/21/201705/10 Inactive GB duloxetine 60 mg capsule,delayed release RxNorm: 818439 Capsule(s) TAKE ONE CAPSULE BY MOUTH ONCE DAILY 06/24/2017 09/24/2017 Inactive Cleocin HCl 300 mg capsule RxNorm: 649934 2 Capsule(s) PO BID 06/0206/08/2017 Inactive acyclovir 800 mg tablet RxNorm: 833502 1 Tablet(s) PO 5x day 201706/08/2017 Inactive diltiazem ER 300 mg capsule,24 hr,extended release RxNorm: 8 19008 1 Capsule(s) PO QHS replaces 240mg dose 05/05/2017 08/03/2017 Inactive ipratropium-albuterol 0.5 mg-3 mg(2.5 mg base)/3 mL ne bulization soln RxNorm: 7513347 1 Unit Dose INH Q4H as needed 05/05/2017 01/04/2019 Inactive metformin ER 1,000 mg tablet,extended release 24hr RxNorm: 1 055940 1 Tablet(s) PO BID 04/28/2017 11/17/2017 Inactive [SAVINGS FOR NON -COVERED DRUGS -- BIN:096989, PCN: ASPROD1, Group: XXXXX, ID# [id number], Questions: . THIS IS NOT INSURANCE.] diltiazem ER (XR/XT) 240 mg capsule,extended release 2 4 hr, controlled RxNorm: 104040 TAKE ONE CAPSULE BY MOUTH EVERY DAY 04/15/2017 05/04/2017 Inact avani prednisone 20 mg tablet RxNorm: 215713 1 Tablet(s) PO QD 04/10/2017 1 06/14/2016 Inactive Breo Ellipta 200 mcg-25 mcg/dose powder for inhalation RxNor m: 5025139 1 Puff(s) INH QD 04/10/2017 02/09/2018 Inactive Breo Ellipta 200 mcg-25 mcg/dose powder for inhalation RxNor m: 1990403 1 Puff(s) INH QD 04/10/2017 04/09/2017 Inactive Levaquin 500 mg tablet RxNorm: 428517 1 Tablet(s) PO QD 04/10/2017 Inactive metoprolol succinate ER 100 mg tablet,extended release 24 hr RxNorm: 873827 TAKE ONE TABLET BY MOUTH TWICE A DAY 03/24/2017 12/18/2017 Inactive fenofibrate micronized 134 mg capsule RxNorm: 624732 1 Capsule( s) PO QD 01/16/2017 07/21/2017 Inactive Benicar HCT 40 mg-25 mg tablet RxNorm: 986202 1 Tablet(s) PO QD 11/17/2017 Inactive [SAVINGS FOR NON-COVERED JESU GS -- BIN:111729, PCN: ASPROD1, Group: XXXXX, ID# [id number], Questions: . THIS IS NOT INSURANCE.] metoprolol succinate ER 100 mg tablet,extended release 24 hr RxNorm: 121453 1 Tablet(s) PO BID 10/16/2016 03/23/2017 Inactive diltiazem ER (XR/XT) 240 mg capsule,extended release 2 4 hr, controlled RxNorm: 142694 1 Capsule(s) PO QD 10/16/2016 04/13/2017 Inactive [SAVINGS FOR NON- COVERED DRUGS -- BIN:730149, PCN: ASPROD1, Group: XXXXX, ID# [id number], Questions: . THIS IS NOT INSURANCE.] metformin ER 1,000 mg tablet,extended release 24hr RxNorm: 8 72449 1 Tablet(s) PO BID 10/16/2016 04/28/2017 Inactive [SAVINGS FOR NON -COVERED DRUGS -- BIN:199091, PCN: ASPROD1, Group: XXXXX, ID# [id number], Questions: . THIS IS NOT INSURANCE.] Zocor 40 mg tablet RxNorm: 108578 1 Tablet(s) PO QHS 10/16/201607/21 Inactive GB Singulair 10 mg tablet RxNorm: 210980 Tablet(s) 1 TABLET(S) PO QHS 08/27/2016 09/02/2018 Inactive prednisone 20 mg tablet RxNorm: 184088 1 Tablet(s) PO QD 08/27/2016 0 08/31/2016 Inactive ipratropium-albuterol 0.5 mg-3 mg(2.5 mg base)/3 mL ne bulization soln RxNorm: 6871605 1 Unit Dose INH Q4H as needed 08/27/2016 05/04/2017 Inactive metoprolol succinate ER 100 mg tablet,extended release 24 hr RxNorm: 358948 TAKE ONE TABLET BY MOUTH TWICE A DAY 08/05/2016 10/16/2016 Inactive duloxetine 60 mg capsule,delayed release RxNorm: 601357 TAKE ONE CAPSULE BY MOUTH ONCE DAILY 08/05/2016 06/24/2017 Inactive prednisone 20 mg tablet RxNorm: 172762 1 Tablet(s) PO QD 06/14/2016 0 06/18/2016 Inactive ipratropium-albuterol 0.5 mg-3 mg(2.5 mg base)/3 mL ne bulization soln RxNorm: 7607004 1 Unit Dose INH Q4H as needed 06/13/2016 08/26/2016 Inactive Levaquin 500 mg tablet RxNorm: 424398 1 Tablet(s) PO QD 06/13/2016 Inactive metoprolol succinate ER 100 mg tablet,extended release 24 hr RxNorm: 451178 1 Tablet(s) PO BID replaces 50mg dose 05/14/2016 07/12/2016 Inactive metoprolol succinate ER 50 mg tablet,extended release 24 hr RxNorm: 271907 1 Tablet(s) PO BID 04/29/2016 05/13/2016 Inactive prednisone 20 mg tablet RxNorm: 279578 1 Tablet(s) PO BID 04/22/2016 04/21/2016 Inactive prednisone 20 mg tablet RxNorm: 145403 1 Tablet(s) PO BID 04/22/2016 04/28/2016 Inactive Singulair 10 mg tablet RxNorm: 887597 Tablet(s) 1 TABLET(S) PO QHS 04/01/2016 08/26/2016 Inactive metoprolol succinate ER 25 mg tablet,extended release 24 hr RxNorm: 605576 1 Tablet(s) PO QHS for blood pressure 04/01/2016 05/13/2016 Inactive fenofibrate micronized 134 mg capsule RxNorm: 736426 TA KE ONE CAPSULE BY MOUTH DAILY 01/25/2016 01/16/2017 Inactive duloxetine 60 mg capsule,delayed release RxNorm: 796561 TAKE ONE CAPSULE BY MOUTH ONCE DAILY 01/25/2016 08/04/2016 Inactive Zocor 40 mg tablet RxNorm: 381728 TAKE ONE TABLET BY MOUTH AT B EDTIME 11/13/2015 10/16/2016 Inactive GB metformin ER 1,000 mg tablet,extended release 24hr RxNorm: 8 47710 1 Tablet(s) PO BID 10/26/2015 10/16/2016 Inactive [SAVINGS FOR NON -COVERED DRUGS -- BIN:066768, PCN: ASPROD1, Group: XXXXX, ID# [id number], Questions: . THIS IS NOT INSURANCE.] Benicar HCT 40 mg-25 mg tablet RxNorm: 384361 1 Tablet(s) PO QD 06/201511/11/2016 Inactive [SAVINGS FOR NON-COVERED JESU GS -- BIN:305320, PCN: ASPROD1, Group: XXXXX, ID# [id number], Questions: . THIS IS NOT INSURANCE.] diltiazem ER (XR/XT) 240 mg capsule,extended release,control led RxNorm: 742431 1 Capsule(s) PO QD 10/26/2015 10/15/2016 Inactive [SAVINGS FOR NO N-COVERED DRUGS -- BIN:544486, PCN: ASPROD1, Group: XXXXX, ID# [id number], Questions: . THIS IS NOT INSURANCE.] Singulair 10 mg tablet RxNorm: 128695 1 TABLET(S) PO QHS 09/18/2015 1 05/31/2015 Inactive Viagra 100 mg tablet RxNorm: 522411 1 Tablet(s) PO as needed 201511/23/2018 Inactive Singulair 10 mg tablet RxNorm: 370873 1 Tablet(s) PO QHS 08/16/2015 0 08/15/2015 Inactive Singulair 10 mg tablet RxNorm: 729738 1 Tablet(s) PO QHS 08/16/2015 0 09/14/2015 Inactive duloxetine 60 mg capsule,delayed release RxNorm: 066488 1 Capsule(s) PO QD replaces fluoxetine 08/14/2015 01/24/2016 Inactive ipratropium-albuterol 0.5 mg-3 mg(2.5 mg base)/3 mL ne bulization soln RxNorm: 7396279 1 Unit Dose INH Q4H as needed 08/14/2015 06/12/2016 Inactive prednisone 20 mg tablet RxNorm: 134347 Take 3 tabs PO o nce daily x 3 days, then 2 tabs PO once daily x 3 days and then 1 tab PO once daily x 3 days 08/09/2015 08/13/2015 Inactive Symbicort 160 mcg-4.5 mcg/actuation HFA aerosol inhaler RxNo rm: 8026844 2 Puff(s) INH BID 08/09/2015 08/13/2015 Inactive Zocor 40 mg tablet RxNorm: 562004 1 Tablet(s) PO QHS 05/23/201511/11 Inactive [AttnRPh: Saving apply/adjudicate RxGRP: SG20 RxBIN:[id number] RxPCN: ID#:[id number]] Benicar HCT 40 mg-25 mg tablet RxNorm: 530330 1 Tablet(s) PO QD 10/26/2015 Inactive [SAVINGS FOR NON-COVERED JESU GS -- BIN:157647, PCN: ASPROD1, Group: XXXXX, ID# XXXXXXX, Questions: . THIS IS NOT INSURANCE.] diltiazem ER (XR/XT) 240 mg capsule,extended release,control led RxNorm: 564238 1 Capsule(s) PO QD 04/24/2015 10/20/2015 Inactive [SAVINGS FOR NO N-COVERED DRUGS -- BIN:877864, PCN: ASPROD1, Group: XXXXX, ID# XXXXXXX, Questions: . THIS IS NOT INSURANCE.] fluoxetine 40 mg capsule RxNorm: 992478 1 Capsule(s) PO QD 04/24/20 15 08/13/2015 Inactive [SAVINGS FOR NON-COVERED JESU GS -- BIN:296724, PCN: ASPROD1, Group: XXXXX, ID# XXXXXXX, Questions: . THIS IS NOT INSURANCE.] Zocor 40 mg tablet RxNorm: 866139 TABLET(S) 1 TABLET(S) PO QHS 01/2505/23/2015 Inactive [AttnRPh: Saving apply/adjud icate RxGRP:SG20 RxBIN:[id number] RxPCN: ID#:[id number]] metformin ER 1,000 mg tablet,extended release 24hr RxNorm: 8 15284 1 TABLET(S) PO BID 01/29/2015 10/26/2015 Inactive [SAVINGS FOR NON -COVERED DRUGS -- BIN:494611, PCN: ASPROD1, Group: XXXXX, ID# XXXXXXX, Questions: . THIS IS NOT INSURANCE.] fenofibrate micronized 134 mg capsule RxNorm: 543625 1 CAPSULE( S) PO QD 01/23/2015 01/17/2016 Inactive fenofibrate micronized 134 mg capsule RxNorm: 182129 1 Capsule( s) PO QD 11/07/2014 01/22/2015 Inactive diltiazem ER (XR/XT) 240 mg capsule,extended release,control led RxNorm: 796974 1 Capsule(s) PO QD 10/24/2014 04/24/2015 Inactive [SAVINGS FOR NO N-COVERED DRUGS -- BIN:953042, PCN: ASPROD1, Group: XXXXX, ID# XXXXXXX, Questions: . THIS IS NOT INSURANCE.] Benicar HCT 40 mg-25 mg tablet RxNorm: 802515 1 Tablet(s) PO QD 05/201404/24/2015 Inactive [SAVINGS FOR NON-COVERED JESU GS -- BIN:149043, PCN: ASPROD1, Group: XXXXX, ID# XXXXXXX, Questions: . THIS IS NOT INSURANCE.] fluoxetine 40 mg capsule RxNorm: 149095 1 Capsule(s) PO QD 10/25/19 15 04/24/2015 Inactive [SAVINGS FOR NON-COVERED JESU GS -- BIN:940482, PCN: ASPROD1, Group: XXXXX, ID# XXXXXXX, Questions: . THIS IS NOT INSURANCE.] azithromycin 500 mg tablet RxNorm: 872055 1 Tablet(s) PO QD 015 09/27/2014 Inactive [SAVINGS FOR NON-COVERED JESU GS -- BIN:980938, PCN: ASPROD1, Group: XXXXX, ID# XXXXXXX, Questions: . THIS IS NOT INSURANCE.] albuterol sulfate 2.5 mg/3 mL (0.083 %) solution for n ebulization RxNorm: 989106 3 Milliliter(s) INH ONE VIAL VIA NEBULIZER EVERY 4 HOURS 015 11/19/2014 Inactive [AttnRPh: Saving apply/adjudicate RxGRP: SG20 RxBIN:[id number] RxPCN: ID#:[id number]] Zocor 40 mg tablet RxNorm: 525396 TABLET(S) 1 TABLET(S ) PO QHS 1 TABLET(S) PO QHS 09/04/2014 02/21/2015 Inactive [AttnRPh: Saving apply/adjudicate RxGRP:SG20 RxBIN:[id number] RxPCN:HT ID#:[id number]] metformin ER 1,000 mg tablet,extended release 24hr RxNorm: 8 02125 1 Tablet(s) PO BID 08/04/2014 01/28/2015 Inactive [SAVINGS FOR NON -COVERED DRUGS -- BIN:448560, PCN: ASPROD1, Group: XXXXX, ID# XXXXXXX, Questions: . THIS IS NOT INSURANCE.] Bromfed DM 2 mg-30 mg-10 mg/5 mL syrup RxNorm: 3227072 1 -2 Teaspoon(s) PO Q4H as needed for cough 06/10/2014 06/19/2014 Inactive [SAVINGS FOR UN INSURED PATIENTS -- BIN:913808, PCN: ASPROD1, Group: AME08, ID# [id number], Process claim through [employer], for questions: . THIS IS NOT INSURANCE.] Augmentin 875 mg-125 mg tablet RxNorm: 462897 1 Tablet(s) PO Q12H 0 06/10/2014 06/19/2014 Inactive [AttnRPh: Saving apply/adjud icate RxGRP:SG20 RxBIN:[id number] RxPCN: ID#:[id number]] Zocor 40 mg tablet RxNorm: 501978 Tablet(s) 1 TABLET(S ) PO QHS 1 TABLET(S) PO QHS 05/25/2014 08/22/2014 Inactive [AttnRPh: Saving apply/adjudicate RxGRP:SG20 RxBIN:[id number] RxPCN:HT ID#:[id number]] fluoxetine 40 mg capsule RxNorm: 240061 1 Capsule(s) PO QD 04/29/20 14 10/24/2014 Inactive [AttnRPh: Saving apply/adjud icate RxGRP:SG20 RxBIN:[id number] RxPCN:HT ID#:[id number]] diltiazem ER (XR/XT) 240 mg capsule,extended release,control led RxNorm: 607631 1 Capsule(s) PO QD 04/29/2014 10/24/2014 Inactive [AttnRPh: Leonelin g apply/adjudicate RxGRP:SG20 RxBIN:[id number] RxPCN:HT ID#:[id number]] Benicar HCT 40 mg-25 mg tablet RxNorm: 850615 1 Tablet(s) PO QD 09/201310/24/2014 Inactive [AttnRPh: Saving apply/adjud icate RxGRP:SG20 RxBIN:[id number] RxPCN:HT ID#:[id number]] Zocor 40 mg tablet RxNorm: 489218 1 TABLET(S) PO QHS 1 TABLET(S ) PO QHS 03/07/2014 05/25/2014 Inactive [AttnRPh: Saving chelsie ly/adjudicate RxGRP:SG20 RxBIN:[id number] RxPCN:HT ID#:[id number]] Zocor 40 mg tablet RxNorm: 041271 1 Tablet(s) PO QHS 1 TABLET(S ) PO QHS 12/06/2013 03/05/2014 Inactive [AttnRPh: Saving chelsie ly/adjudicate RxGRP:SG20 RxBIN:[id number] RxPCN:HT ID#:[id number]] diltiazem ER (XR/XT) 240 mg capsule,extended release,control led RxNorm: 218693 1 Capsule(s) PO QD 10/25/2013 04/22/2014 Inactive [AttnRPh: Leonlein g apply/adjudicate RxGRP:SG20 RxBIN:[id number] RxPCN:HT ID#:[id number]] fluoxetine 40 mg capsule RxNorm: 038128 1 Capsule(s) PO QD 10/26/19 14 04/22/2014 Inactive [AttnRPh: Saving apply/adjud icate RxGRP:SG20 RxBIN:[id number] RxPCN: ID#:[id number]] Zocor 40 mg tablet RxNorm: 962711 1 Tablet(s) PO QHS 1 TABLET(S ) PO QHS 09/13/2013 12/06/2013 Inactive metformin ER 1,000 mg tablet,extended release 24hr RxNorm: 8 76101 Tablet(s) PO TAKE 1 TABLET BY MOUTH TWICE DAILY (REPLACES 500MG DOSE) 07/26/201303/2015 Inactive diltiazem ER (XR/XT) 240 mg capsule,extended release,control led RxNorm: 868094 1 Capsule(s) PO QD 05/03/2013 10/25/2013 Inactive fluoxetine 40 mg capsule RxNorm: 102308 1 Capsule(s) PO QD 05/03/20 13 10/25/2013 Inactive Benicar HCT 40 mg-25 mg tablet RxNorm: 778417 1 Tablet(s) PO QD 01/201304/29/2014 Inactive Zocor 40 mg tablet RxNorm: 395655 1 Tablet(s) PO QHS 12/10/201209/13 Inactive fluoxetine 40 mg capsule RxNorm: 241042 1 Capsule(s) PO QD 11/10/19 13 05/03/2013 Inactive diltiazem ER (XR/XT) 240 mg capsule,extended release,control led RxNorm: 102958 1 Capsule(s) PO QD 11/09/2012 05/03/2013 Inactive Benicar HCT 40 mg-25 mg tablet RxNorm: 123332 1 Tablet(s) PO QD 05/03/2013 Inactive metformin ER 1,000 mg tablet,extended release 24hr RxNorm: 8 56251 Tablet(s) PO TAKE 1 TABLET BY MOUTH TWICE DAILY (REPLACES 500MG DOSE) 08/05/201206/2013 Inactive Zocor 40 mg tablet RxNorm: 824703 1 Tablet(s) PO QHS 06/15/201212/09 Inactive fluoxetine 40 mg capsule RxNorm: 701667 1 Capsule(s) PO QD 05/15/20 12 11/08/2012 Inactive Neurontin 600 mg Tab RxNorm: 169679 1 Tablet(s) PO QHS 12/03/2011 Inactive metformin ER 1,000 mg tablet,extended release 24hr RxNorm: 8 42735 1 Tablet(s) PO BID replaces 500mg dose 12/03/2011 07/26/2013 Inactive Zocor 40 mg tablet RxNorm: 411869 1 Tablet(s) PO QHS 12/03/201106/15 Inactive fluoxetine 20 mg capsule RxNorm: 089967 1 Capsule(s) PO QD 12/03/19 12 05/24/2012 Inactive diltiazem ER (XR/XT) 240 mg capsule,extended release,control led RxNorm: 288798 1 Capsule(s) PO QD 11/15/2011 11/09/2012 Inactive Benicar HCT 40 mg-25 mg tablet RxNorm: 657981 1 Tablet(s) PO QD 02/16/2012 Inactive metformin ER 500 mg 24 hr Tab RxNorm: 556740 1 Tablet(s) PO BID 12/02/2011 Inactive Zocor 40 mg Tab RxNorm: 334006 1 Tablet(s) PO QHS 05/30/2011 11/25/19 12 Inactive fluoxetine 20 mg Cap RxNorm: 312362 1 Capsule(s) PO QD 05/28/2011 Inactive Neurontin 600 mg Tab RxNorm: 172904 1 Tablet(s) PO QHS 05/28/2011 Inactive Neurontin 600 mg Tab RxNorm: 379381 1 Tablet(s) PO QHS 02/22/201106/2011 Inactive Neurontin 600 mg Tab RxNorm: 840941 1 Tablet(s) PO QHS 01/14/2011 Inactive Neurontin 300 mg Cap RxNorm: 812579 1 Capsule(s) PO QHS 01/14/2011 Inactive Neurontin 600 mg Tab RxNorm: 600582 1 Tablet(s) PO QHS 01/14/2011 Inactive Medrol (Vipul) 4 mg Tabs in a Dose Pack RxNorm: 110387 Tablet(s) PO 0 01/02/2011 08/28/2011 Inactive as directed fluoxetine 20 mg Cap RxNorm: 995166 1 Capsule(s) PO QD 12/10/201006/2011 Inactive Zocor 40 mg Tab RxNorm: 615156 1 Tablet(s) PO QHS 12/03/2010 05/29/19 12 Inactive Neurontin 300 mg Cap RxNorm: 890145 1 Capsule(s) PO QHS 12/03/2010 Inactive Septra DS 800 mg-160 mg Tab RxNorm: 463294 1 Tablet(s) PO BID 11/2912/08/2010 Inactive diltiazem ER (XR/XT) 240 mg Continuous Release Cap RxNorm: 8 49563 1 Capsule(s) PO QD 11/20/2010 11/15/2011 Inactive Neurontin 300 mg Cap RxNorm: 386065 1 Capsule(s) PO QHS 11/06/2010 Inactive Neurontin 300 mg Cap RxNorm: 054859 1 Capsule(s) PO QHS 11/06/2010 Inactive Celebrex 200 mg Cap RxNorm: 249495 1 Capsule(s) PO BID 10/24/2010 Inactive fluoxetine 20 mg Cap RxNorm: 355402 1 Capsule(s) PO QD 06/07/201003/2011 Inactive Zocor 40 mg Tab RxNorm: 063847 1 Tablet(s) PO QHS 06/05/2010 12/02/19 11 Inactive Benicar HCT 40 mg-25 mg Tab RxNorm: 735212 1 Tablet(s) PO QD 200908/21/2011 Inactive Diltiazem 240 mg Continuous Release Cap RxNorm: 944134 1 Capsul e(s) PO QD 11/09/2009 09/02/2018 Inactive Avelox 400 mg Tab RxNorm: 645499 1 Tablet(s) PO QD 08/22/2009 010 Inactive ProAir HFA 90 mcg/actuation aerosol inhaler RxNorm: 796697 2 Puff(s) INH Q4H as needed No Start Date Active tramadol 50 mg tablet RxNorm: 931002 1-2 Tablet(s) PO TID as ne eded for pain No Start Date Active Tylenol Arthritis 650 mg Tab RxNorm: 7186779 2 Tablet(s) PO QD No Sta rt Date Active Celebrex 200 mg Cap RxNorm: 337284 1 Capsule(s) PO BID No Start Date 08/08/2015 Inactive Medrol (Vipul) 4 mg Tabs in a Dose Pack RxNorm: 301175 Tablet(s) PO N o Start Date 01/01/2011 Inactive as directed Promethazine-DM 6.25 mg-15 mg/5 mL Syrup RxNorm: 629070 1-2 Teaspoon(s) PO Q4H prn cough No Start Date 08/28/2011 Inactive Claritin 10 mg tablet RxNorm: 532495 1 Tablet(s) PO QD No Start Date 08/08/2015 Inactive Sbglwfawyo-Qofkr-RXV-James-[id number] Oral RxNorm: Oral No Start Da te 03/28/2019 Inactive Breo Ellipta 200 mcg-25 mcg/dose powder for inhalation RxNor m: 3305874 1 Puff(s) INH QD No Start Date 04/09/2017 Inactive metformin 500 mg Tab RxNorm: 293058 1 Tablet(s) PO QD No Start Date 0 08/17/2011 Inactive Diltiazem 240 mg Continuous Release Cap RxNorm: 302365 1 Capsul e(s) PO BID No Start Date 11/08/2009 Inactive fluoxetine 20 mg Cap RxNorm: 335009 1 Capsule(s) PO QD No Start Date 06/07/2010 Inactive Multivitamin & Mineral Formula Oral RxNorm: Oral No Start Da te 03/28/2019 Inactive Medrol (Vipul) 4 mg tablets in a dose pack RxNorm: 945950 Tablet(s) PO as directed No Start Date 05/28/2012 Inactive Fish Oil 1,000 mg Cap RxNorm: 1 Capsule(s) PO QD No Start Date 07/2018 Inactive Nexium 40 mg Cap RxNorm: 371834 1 Capsule(s) PO QD No Start Date 07/24 Inactive fluticasone 50 mcg/actuation nasal spray,suspension RxNorm: 3073606 2 Bryan NASAL QD to each nostril No Start Date 08/03/2017 Inactive Viagra 100 mg tablet RxNorm: 258785 1 Tablet(s) PO as needed No Sta rt Date 09/17/2015 Inactive prednisone 20 mg tablet RxNorm: 239999 1 Tablet(s) PO B ID for 4 days then 1 po daily for 4 days No Start Date 11/23/2018 Inactive Benicar HCT 40 mg-25 mg Tab RxNorm: 953290 1 Tablet(s) PO QD No Sta rt [...] Date S ervice Location MICROALBUMIN URINE RANDOM 62911 MICRL MG/L 5.8 MG/L 03/2011 Unknown MICROALBUMIN URINE RANDOM 91721 XM.ALB/CRE 5.2 MG/GCR Unknown MICROALBUMIN URINE RANDOM 06269 CREAT MG/D 111 MG/DL 03/2011 Unknown MICROALBUMIN URINE RANDOM 14719 CRE/100 1.11 G/L 12/24 Unknown Procedures Procedure Codes Date FLU VACC PRSV FREE INC ANTIG 65 AND OLDER CPT-4: 41347 03/04/2019 ADMIN PNEUMOCOCCAL VACCINE CPT-4: G0009 03/04/2019 ADMIN INFLUENZA VIRUS VAC CPT-4: G0008 03/04/2019 FLU VACC PRSV FREE INC ANTIG 65 AND OLDER CPT-4: 31789 03/04/2019 PNEUMOCOCCAL VACC 23 RAYMON IM CPT-4: 58266 03/04/2019 THER/PROPH/DIAG INJ SC/IM CPT-4: 44002 08/11/2018 TRIAMCINOLONE ACET INJ NOS CPT-4: J3301 08/11/2018 DEXAMETHASONE SODIUM PHOS CPT-4: J1100 08/11/2018 THER/PROPH/DIAG INJ SC/IM CPT-4: 83409 07/16/2018 METHYLPREDNISOLONE INJECTION CPT-4: J2930 07/16/2018 INFLUENZA ASSAY W/OPTIC CPT-4: 13135 07/16/2018 THER/PROPH/DIAG INJ SC/IM CPT-4: 21255 07/13/2018 TRIAMCINOLONE ACET INJ NOS CPT-4: J3301 07/13/2018 THER/PROPH/DIAG INJ SC/IM CPT-4: 55430 05/04/2018 METHYLPREDNISOLONE INJECTION CPT-4: J2930 05/04/2018 FLU VACC PRSV FREE INC ANTIG 65 AND OLDER CPT-4: 38650 02/10/2018 PNEUMOCOCCAL VACC 13 RAYMON IM CPT-4: 12954 02/10/2018 ADMIN INFLUENZA VIRUS VAC CPT-4: G0008 02/10/2018 ADMIN PNEUMOCOCCAL VACCINE CPT-4: G0009 02/10/2018 THER/PROPH/DIAG INJ SC/IM CPT-4: 94549 09/09/2017 TRIAMCINOLONE ACET INJ NOS CPT-4: J3301 09/09/2017 ALBUTEROL NON-COMP UNIT CPT-4: J7613 04/10/2017 AIRWAY INHALATION TREATMENT CPT-4: 04343 04/10/2017 PRESCRIP TRANSMIT VIA ERX SY CPT-4: G8553 04/10/2017 FLU VACC PRSV FREE INC ANTIG 65 AND OLDER CPT-4: 62036 03/28/2017 ADMIN INFLUENZA VIRUS VAC CPT-4: G0008 03/28/2017 PRESCRIP TRANSMIT VIA ERX SY CPT-4: G8553 08/27/2016 PRESCRIP TRANSMIT VIA ERX SY CPT-4: G8553 06/14/2016 ALBUTEROL NON-COMP UNIT CPT-4: J7613 06/13/2016 AIRWAY INHALATION TREATMENT CPT-4: 27719 06/13/2016 PRESCRIP TRANSMIT VIA ERX SY CPT-4: [...] CPT-4: G8553 11/07/2014 THER/PROPH/DIAG INJ SC/IM CPT-4: 68517 09/21/2014 METHYLPREDNISOLONE INJECTION CPT-4: J2930 09/21/2014 PRESCRIP TRANSMIT VIA ERX SY CPT-4: G8553 09/21/2014 PRESCRIP TRANSMIT VIA ERX SY CPT-4: G8553 06/10/2014 URINALYSIS NONAUTO W/O SCOPE CPT-4: 31095 06/01/2012 PRESCRIP TRANSMIT VIA ERX SY CPT-4: G8553 05/25/2012 PRESCRIP TRANSMIT VIA ERX SY CPT-4: G8553 12/03/2011 CUR TOBACCO NON-USER CPT-4: G8457 05/30/2011 PRESCRIP TRANSMIT VIA ERX SY CPT-4: G8553 05/30/2011 URINALYSIS NONAUTO W/O SCOPE CPT-4: 92061 01/01/2011 URINE CULTURE/ COLONY COUNT CPT-4: 15838 01/01/2011 CUR TOBACCO NON-USER CPT-4: G8457 01/01/2011 PRESCRIP TRANSMIT VIA ERX SY CPT-4: G8553 11/29/2010 PRESCRIP TRANSMIT VIA ERX SY CPT-4: G8553 06/05/2010 Vital Signs Date Vital 08/10/2019 Blood Pressure 1: 146/82 Code: 8480-6 [...] 1: 114/68 Code: 8480-6 BMI: 43.5 Code: 88373-3 Heart Rate 1: 52 bpm Height: 6'1" [...] 1: 136/72 Code: 8480-6 BMI: 42.7 Code: 37264-6 Heart Rate 1: 60 bpm Height: 6'1" Respiratory Rate: 22 bpm SpO2: 95% Tempera ture: 37.1 (C) / 98.7 (F) Weight: 324 lbs 02/10/2018 Blood Pressure 1: 146/78 Code: 8480-6 BMI: 42.4 Code: 58116-4 Heart Rate 1: 64 bpm Height: 6'1" Respiratory Rate: 22 bpm SpO2: 95% Tempera ture: 36.5 (C) / 97.7 (F) Weight: 321 lbs 11/05/2017 Blood Pressure 1: 128/84 Code: 8480-6 BMI: 42.9 Code: 19094-2 Heart Rate 1: 52 bpm Height: 6'1" Respiratory Rate: 22 bpm SpO2: 95% Tempera ture: 36.3 (C) / 97.3 (F) Weight: 325 lbs 09/09/2017 Blood Pressure 1: 162/90 Code: 8480-6 BMI: 42.5 Code: 92128-4 Heart Rate 1: 60 bpm Height: 6'1" Respiratory Rate: 24 bpm SpO2: 95% Tempera ture: 36.4 (C) / 97.6 (F) Weight: 322 lbs 08/07/2017 Blood Pressure 1: 152/90 Code: 8480-6 BMI: 42.2 Code: 55801-6 Heart Rate 1: 60 bpm Height: 6'1" Respiratory Rate: 26 bpm SpO2: 94% Tempera ture: 36.6 (C) / 97.8 (F) Weight: 320 lbs 08/04/2017 Blood Pressure 1: 150/86 Code: 8480-6 BMI: 42.7 Code: 21745-6 Heart Rate 1: 64 bpm Height: 6'1" Respiratory Rate: 20 bpm SpO2: 94% Tempera ture: 36.3 (C) / 97.3 (F) Weight: 324 lbs 06/04/2017 Blood Pressure 1: 164/90 Code: 8480-6 Heart Rate 1: 60 bpm Respiratory Rate: 24 bpm SpO2: 94% Temperature: 36.8 (C) / 98.3 (F) 06/02/2017 Blood Pressure 1: 162/80 Code: 8480-6 BMI: 42.9 Code: 60242-6 Heart Rate 1: 66 bpm Height: 6'1" Respiratory Rate: 22 bpm SpO2: 98% Tempera ture: 36.6 (C) / 97.8 (F) Weight: 325 lbs 05/05/2017 Blood Pressure 1: 164/94 Code: 8480-6 BMI: 41.4 Code: 85009-2 Heart Rate 1: 64 bpm Height: 6'1" Respiratory Rate: 22 bpm SpO2: 95% Tempera ture: 36.4 (C) / 97.5 (F) Weight: 314 lbs 04/10/2017 Blood Pressure 1: 136/78 Code: 8480-6 BMI: 42.0 Code: 48486-5 Heart Rate 1: 76 bpm Height: 6'1" Respiratory Rate: 24 bpm SpO2: 92% Tempera ture: 35.9 (C) / 96.7 (F) Weight: 318 lbs 02/03/2017 Blood Pressure 1: 134/82 Code: 8480-6 BMI: 41.7 Code: 15297-0 Heart Rate 1: 72 bpm Height: 6'1" Respiratory Rate: 24 bpm SpO2: 95% Tempera ture: 36.1 (C) / 97.0 (F) Weight: 316 lbs 10/30/2016 Blood Pressure 1: 126/74 Code: 8480-6 BMI: 41.3 Code: 36375-8 Heart Rate 1: 68 bpm Height: 6'1" Respiratory Rate: 20 bpm Temperature: 37 .1 (C) / 98.8 (F) Weight: 313 lbs 08/30/2016 Blood Pressure 1: 146/80 Code: 8480-6 BMI: 41.7 Code: 90714-4 Heart Rate 1: 64 bpm Height: 6'1" Respiratory Rate: 24 bpm SpO2: 94% Tempera ture: 36.6 (C) / 97.8 (F) Weight: 316 lbs 08/27/2016 Blood Pressure 1: 124 Code: 8480-6 Heart Rate 1: 66 bpm Height: 6'2" Respiratory Rate: 18 bpm SpO2: 94% Temperature: 36.6 (C) / 97.8 (F) Weight: 07/02/2016 Blood Pressure 1: 126 Code: 8480-6 BMI: 41.4 Code: 95644-6 Heart Rate 1: 68 bpm Height: 6'1" Respiratory Rate: 24 bpm SpO2: 94% Tempera ture: 36.6 (C) / 97.8 (F) Weight: 314 lbs 06/14/2016 Blood Pressure 1: 146/82 Code: 8480-6 Heart Rate 1: 80 bpm Respiratory Rate: 20 bpm SpO2: 95% Temperature: 37.3 (C) / 99.2 (F) 06/13/2016 Blood Pressure 1: 146/84 Code: 8480-6 BMI: 40.5 Code: 94969-7 Heart Rate 1: 66 bpm Height: 6'1" Respiratory Rate: 28 bpm SpO2: 93% Tempera ture: 35.8 (C) / 96.4 (F) Weight: 307 lbs 05/14/2016 Blood Pressure 1: 146/90 Code: 8480-6 BMI: 41.2 Code: 86498-2 Heart Rate 1: 68 bpm Height: 6'1" Respiratory Rate: 26 bpm Temperature: 36 .8 (C) / 98.2 (F) Weight: 312 lbs 04/29/2016 Blood Pressure 1: 152/90 Code: 8480-6 BMI: 41.0 Code: 14776-8 Heart Rate 1: 68 bpm Height: 6'1" Respiratory Rate: 26 bpm SpO2: 94% Tempera ture: 36.1 (C) / 96.9 (F) Weight: 311 lbs 04/22/2016 Blood Pressure 1: 152/94 Code: 8480-6 BMI: 40.9 Code: 68682-9 Heart Rate 1: 68 bpm Height: 6'1" Respiratory Rate: 24 bpm SpO2: 94% Tempera ture: 36.2 (C) / 97.2 (F) Weight: 310 lbs 04/01/2016 Blood Pressure 1: 156/78 Code: 8480-6 BMI: 40.6 Code: 19496-2 Heart Rate 1: 84 bpm Height: 6'1" Respiratory Rate: 22 bpm SpO2: 95% Tempera ture: 37.1 (C) / 98.7 (F) Weight: 308 lbs 11/30/2015 Blood Pressure 1: 142/80 Code: 8480-6 BMI: 40.5 Code: 78530-5 Heart Rate 1: 88 bpm Height: 6'1" Respiratory Rate: 22 bpm Temperature: 36 .2 (C) / 97.2 (F) Weight: 307 lbs 08/29/2015 Blood Pressure 1: 132/70 Code: 8480-6 BMI: 40.0 Code: 97798-5 Heart Rate 1: 76 bpm Height: 6'1" Respiratory Rate: 24 bpm SpO2: 96% Tempera ture: 36.7 (C) / 98.0 (F) Weight: 303 lbs 08/14/2015 Blood Pressure 1: 126/80 Code: 8480-6 BMI: 39.4 Code: 44608-8 Heart Rate 1: 92 bpm Height: 6'1" Respiratory Rate: 24 bpm SpO2: 94% Tempera ture: 37.8 (C) / 100.0 (F) Weight: 299 lbs 08/09/2015 Blood Pressure 1: 146/82 Code: 8480-6 Heart Rate 1: 82 bpm Respiratory Rate: 22 bpm SpO2: 93% Temperature: 35.9 (C) / 96.6 (F) We ight: 310 lbs 05/22/2015 Blood Pressure 1: 156/76 Code: 8480-6 BMI: 41.0 Code: 66642-4 Heart Rate 1: 100 bpm Height: 6'1" Respiratory Rate: 22 bpm Temperature: 37 .2 (C) / 98.9 (F) Weight: 311 lbs 02/13/2015 Blood Pressure 1: 166/90 Code: 8480-6 BMI: 41.2 Code: 89405-0 Heart Rate 1: 72 bpm Height: 6'1" Respiratory Rate: 24 bpm SpO2: 93% Tempera ture: 36.9 (C) / 98.5 (F) Weight: 312 lbs 11/07/2014 Blood Pressure 1: 134/70 Code: 8480-6 BMI: 40.5 Code: 75834-8 Heart Rate 1: 76 bpm Height: 6'1" Respiratory Rate: 24 bpm Temperature: 36 .9 (C) / 98.4 (F) Weight: 307 lbs 10/04/2014 Blood Pressure 1: 144/86 Code: 8480-6 BMI: 40.1 Code: 29879-4 Heart Rate 1: 76 bpm Height: 6'1" Respiratory Rate: 28 bpm Temperature: 36 .6 (C) / 97.9 (F) Weight: 304 lbs 09/22/2014 Blood Pressure 1: 142/80 Code: 8480-6 BMI: 40.0 Code: 36294-3 Heart Rate 1: 80 bpm Height: 6'1" Respiratory Rate: 22 bpm SpO2: 96% Tempera ture: 36.6 (C) / 97.8 (F) Weight: 303 lbs 09/21/2014 Blood Pressure 1: 160/66 Code: 8480-6 BMI: 40.0 Code: 26373-7 Heart Rate 1: 90 bpm Height: 6'1" Respiratory Rate: 26 bpm SpO2: 94% Tempera ture: 35.7 (C) / 96.2 (F) Weight: 303 lbs 06/28/2014 Blood Pressure 1: 132/80 Code: 8480-6 BMI: 41.0 Code: 91759-1 Heart Rate 1: 64 bpm Height: 6' Respiratory Rate: 20 bpm Temperature: 36 .7 (C) / 98.0 (F) Weight: 302 lbs 06/10/2014 Blood Pressure 1: 152/70 Code: 8480-6 BMI: 41.1 Code: 98908-5 Heart Rate 1: 76 bpm Height: 6' Respiratory Rate: 20 bpm Temperature: 36 .6 (C) / 97.8 (F) Weight: 303 lbs 03/29/2014 Blood Pressure 1: 132/78 Code: 8480-6 BMI: 40.6 Code: 98653-6 Heart Rate 1: 84 bpm Height: 6' Respiratory Rate: 22 bpm Temperature: 37 .1 (C) / 98.8 (F) Weight: 299 lbs 11/30/2013 Blood Pressure 1: 136/84 Code: 8480-6 BMI: 39.2 Code: 78753-7 Heart Rate 1: 76 bpm Height: 6' Respiratory Rate: 20 bpm Temperature: 36 .8 (C) / 98.2 (F) Weight: 289 lbs 08/03/2013 Blood Pressure 1: 144/80 Code: 8480-6 Heart Rate 1: 86 bpm Respiratory Rate: 20 bpm Temperature: 36.6 (C) / 97.8 (F) Weight: 296 lbs 04/06/2013 Blood Pressure 1: 142/90 Code: 8480-6 BMI: 40.3 Code: 25503-7 Heart Rate 1: 88 bpm Height: 6' Respiratory Rate: 20 bpm Temperature: 36 .6 (C) / 97.8 (F) Weight: 297 lbs 12/01/2012 Blood Pressure 1: 124/78 Code: 8480-6 BMI: 38.7 Code: 02768-3 Heart Rate 1: 76 bpm Height: 6' Respiratory Rate: 20 bpm Temperature: 37 .2 (C) / 98.9 (F) Weight: 285 lbs 08/04/2012 Blood Pressure 1: 128/80 Code: 8480-6 BMI: 38.2 Code: 69834-1 Heart Rate 1: 76 bpm Height: 6' Respiratory Rate: 20 bpm Temperature: 37 .0 (C) / 98.6 (F) Weight: 282 lbs 05/29/2012 Blood Pressure 1: 138/78 Code: 8480-6 BMI: 36.6 Code: 99491-7 Heart Rate 1: 66 bpm Height: 6' Temperature: 36.7 (C) / 98.1 (F) Weight: 270 lbs 05/25/2012 Blood Pressure 1: 128/72 Code: 8480-6 BMI: 39.9 Code: 73497-5 Heart Rate 1: 74 bpm Height: 6' Temperature: 36.1 (C) / 97.0 (F) Weight: 294 lbs 04/07/2012 Blood Pressure 1: 124/76 Code: 8480-6 BMI: 39.9 Code: 54647-8 Heart Rate 1: 72 bpm Height: 6' Respiratory Rate: 20 bpm Temperature: 36 .9 (C) / 98.5 (F) Weight: 294 lbs 12/16/2011 Blood Pressure 1: 128/80 Code: 8480-6 BMI: 40.8 Code: 11072-9 Heart Rate 1: 74 bpm Height: 6' Temperature: 36.6 (C) / 97.8 (F) Weight: 301 lbs 12/03/2011 Blood Pressure 1: 132/76 Code: 8480-6 BMI: 40.8 Code: 61846-4 Heart Rate 1: 68 bpm Height: 6' Respiratory Rate: 20 bpm Temperature: 36 .8 (C) / 98.2 (F) Weight: 301 lbs 08/29/2011 Blood Pressure 1: 140/68 Code: 8480-6 BMI: 40.8 Code: 11465-7 Heart Rate 1: 80 bpm Height: 6' Respiratory Rate: 20 bpm Temperature: 36 .4 (C) / 97.6 (F) Weight: 301 lbs 05/30/2011 Blood Pressure 1: 134/82 Code: 8480-6 BMI: 41.5 Code: 92880-7 Heart Rate 1: 76 bpm Height: 6' [...] 1: 126/72 Code: 8480-6 BMI: 41.2 Code: 90698-2 Heart Rate 1: 76 bpm Height: 6' [...] 1: 152/90 Code: 8480-6 BMI: 37.7 Code: 55586-6 Heart Rate 1: 92 bpm Height: 6'1" Temperature: 38.3 (C) / 101.0 (F) Weight : 286 lbs Functional Status No Functional Status data Reason For Visit Reason For Visit Effective Dates Notes follow up 08/10/2019 cellulitis 07/06/2019 follow up [...] pulmonary disease with (acute) exacerbation[ICD10: J44.1] Neela VALENTINENDER DO [facility] CPT- 4: 22893 08/10/2019 ([id number]) OFFICE/OUTPATIENT VISIT EST Diagnosis: Sore on toe[ICD10: L98.9] Neela VALENTINE NDEGerald DO [facility] CPT-4: 96832 07/06/2019 ([id number]) OFFICE/OUTPATIENT VISIT EST Diagnosis: Advanced chronic obstructive pulmonary disease[ICD10: J44.9] 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] Neela HYMAN [facility] CPT-4: 14704 05/10/2019 ([id number]) OFFICE/OUTPATIENT VISIT EST Diagnosis: Chronic obstructive pulmonary disease with (acute) exacerbation[ICD10: J44.1] Diagnosis: Hypokalemia[ICD10: E87.6] 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] Neela HYMAN [facility] CPT-4: 56640 03/29/2019 ([id number]) NURSE/OUTPATIENT VISIT EST Diagnosis: PNEUMOCOCCAL VACCINE[ICD10: Z23] Neela HYMAN [facility] CPT-4: 71894 03/04/2019 ([id number]) OFFICE/OUTPATIENT VISIT EST Diagnosis: Chronic obstructive pulmonary disease with (acute) exacerbation[ICD10: J44.1] Diagnosis: Other nonspecific abnormal finding of lung field[ICD10: R91.8] Neela HYMAN [facility] CPT-4: 63885 01/05/2019 ([id number]) OFFICE/OUTPATIENT VISIT EST Diagnosis: Solitary pulmonary nodule[ICD10: R91.1] 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] Diagnosis: Tinea corporis[ICD10: B35.4] Neela HYMAN [facility] CPT-4: 53716 12/09/2018 ([id number]) OFFICE/OUTPATIENT VISIT EST Diagnosis: COUGH[ICD10: R05] Diagnosis: Chronic obstructive pulmonary disease, unspecified[ICD10: J44.9] Diagnosis: Other disorders of lung[ICD10: J98.4] Diagnosis: Other nonspecific abnormal finding of lung field[ICD10: R91.8] Neela HYMAN [facility] CPT-4: 07562 11/24/2018 ([id number]) OFFICE/OUTPATIENT VISIT EST Diagnosis: Pneumonia, unspecified organism[ICD10: J18.9] Amita Henderson NEELA ZHANG [facility] CPT-4: 58451 09/16/2018 ([id number]) OFFICE/OUTPATIENT VISIT EST Diagnosis: Pneumonia, unspecified organism[ICD10: J18.9] Neela HYMAN [facility] CPT-4: 09098 09/03/2018 ([id number]) OFFICE/OUTPATIENT VISIT EST Diagnosis: Personal history of pneumonia (recurrent)[ICD10: Z87.01] Diagnosis: Cough[ICD10: R05] Diagnosis: Essential (primary) hypertension[ICD10: I10] Diagnosis: Type 2 diabetes mellitus with hyperglycemia[ICD10: E11.65] Amita HYMAN [facility] CPT-4: 43296 08/27/2018 OFFICE/OUTPATIENT VISIT EST Diagnosis: Pneumonia, unspecified organism[ICD10: J18.9] Diagnosis: Chronic obstructive pulmonary disease with (acute) exacerbation[ICD10: J44.1] Diagnosis: Other specified symptoms and signs involving the circulatory and respiratory systems[ICD10: R09.89] Diagnosis: Essential (primary) hypertension[ICD10: I10] Amita MURILLO [facility] CPT-4: 06482 08/13/2018 OFFICE/OUTPATIENT VISIT EST Diagnosis: Pneumonia, unspecified organism[ICD10: J18.9] Diagnosis: Other specified symptoms and signs involving the circulatory and respiratory systems[ICD10: R09.89] Amita HYMAN [facility] CPT-4: 01875 08/11/2018 ([id number]) OFFICE/OUTPATIENT VISIT EST Diagnosis: Dyspnea, unspecified[ICD10: R06.00] Diagnosis: Chronic obstructive pulmonary disease with (acute) exacerbation[ICD10: J44.1] Diagnosis: Pneumonia, unspecified organism[ICD10: J18.9] Amita MURILLO [employer] HYMAN [facility] CPT-4: 93158 07/16/2018 ([id number]) OFFICE/OUTPATIENT VISIT EST Diagnosis: Acute bronchitis due to other specified organisms[ICD10: J20.8] Diagnosis: Cough[ICD10: R05] Amita MURILLO [employer] T-4: 77698 07/13/2018 ([id number]) OFFICE/OUTPATIENT VISIT EST Diagnosis: Essential (primary) hypertension[ICD10: I10] Diagnosis: Chronic obstructive pulmonary disease, unspecified[ICD10: J44.9] Diagnosis: Type 2 diabetes mellitus with hyperglycemia[ICD10: E11.65] Diagnosis: Mixed hyperlipidemia[ICD10: E78.2] Neela HYMAN [facility] CPT-4: 91056 06/03/2018 ([id number]) OFFICE/OUTPATIENT VISIT EST Diagnosis: Chronic obstructive pulmonary disease, unspecified[ICD10: J44.9] Gely HYMAN [facility] CPT-4: 10255 05/04/2018 ([id number]) OFFICE/OUTPATIENT VISIT EST Diagnosis: Essential (primary) hypertension[ICD10: I10] Diagnosis: Localized edema[ICD10: R60.0] Neela HYMAN [facility] CPT-4: 29142 03/03/2018 ([id number]) OFFICE/OUTPATIENT VISIT EST Diagnosis: Localized edema[ICD10: R60.0] Neela HYMAN [facility] CPT-4: 84926 02/17/2018 ([id number]) OFFICE/OUTPATIENT VISIT EST Diagnosis: FLU VACCINE[ICD10: Z23] Diagnosis: PNEUMOCOCCAL VACCINE[ICD10: Z23] Diagnosis: Type 2 diabetes mellitus without complications[ICD10: E11.9] Diagnosis: Mixed hyperlipidemia[ICD10: E78.2] Diagnosis: Essential (primary) hypertension[ICD10: I10] Diagnosis: Localized edema[ICD10: R60.0] Diagnosis: Chronic obstructive pulmonary disease, unspecified[ICD10: J44.9] Neela HYMAN [facility] CPT-4: 35961 02/10/2018 ([id number]) OFFICE/OUTPATIENT VISIT EST Diagnosis: Type 2 diabetes mellitus with hyperglycemia[ICD10: E11.65] Diagnosis: Mixed hyperlipidemia[ICD10: E78.2] Diagnosis: Essential (primary) hypertension[ICD10: I10] Diagnosis: Chronic obstructive pulmonary disease, unspecified[ICD10: J44.9] Diagnosis: Cutaneous abscess of back [any part, except buttock][ICD10: L02.212] Neela HYMAN [facility] CPT-4: 21767 11/05/2017 ([id number]) OFFICE/OUTPATIENT VISIT EST Diagnosis: Allergic urticaria[ICD10: L50.0] Gely HYMAN DO [facility] CPT-4: 16976 09/09/2017 ([id number]) OFFICE/OUTPATIENT VISIT EST Diagnosis: Generalized enlarged lymph nodes[ICD10: R59.1] Diagnosis: Acute gastritis without bleeding[ICD10: K29.00] Gely HYMAN DO [facility] CPT-4: 53271 08/07/2017 ([id number]) OFFICE/OUTPATIENT VISIT EST Diagnosis: Type 2 diabetes mellitus without complications[ICD10: E11.9] Diagnosis: Mixed hyperlipidemia[ICD10: E78.2] Diagnosis: Essential (primary) hypertension[ICD10: I10] Neela HYMAN [facility] CPT-4: 65434 08/04/2017 ([id number]) OFFICE/OUTPATIENT VISIT EST Diagnosis: Zoster without complications[ICD10: B02.9] Diagnosis: Acute sialoadenitis[ICD10: K11.21] Gely HYMAN [facility] CPT-4: 97486 06/04/2017 OFFICE/OUTPATIENT VISIT EST Diagnosis: Zoster without complications[ICD10: B02.9] Diagnosis: Acute sialoadenitis[ICD10: K11.21] Gely HYMAN [facility] CPT-4: 44780 06/02/2017 ([id number]) OFFICE/OUTPATIENT VISIT EST Diagnosis: Type 2 diabetes mellitus without complications[ICD10: E11.9] Diagnosis: Mixed hyperlipidemia[ICD10: E78.2] Diagnosis: Essential (primary) hypertension[ICD10: I10] Diagnosis: Chronic obstructive pulmonary disease, unspecified[ICD10: J44.9] Neela HYMAN [facility] CPT-4: 44022 05/05/2017 OFFICE/OUTPATIENT VISIT EST Diagnosis: Chronic obstructive pulmonary disease with acute lower respiratory infection[ICD10: J44.0] Diagnosis: Impacted cerumen, bilateral[ICD10: H61.23] Gely HYMAN [facility] CPT-4: 09655 04/10/2017 ([id number]) OFFICE/OUTPATIENT VISIT EST Diagnosis: FLU VACCINE[ICD10: Z23] Neela BUI [facility] CPT-4: 90053 03/28/2017 ([id number]) OFFICE/OUTPATIENT VISIT EST Diagnosis: Type 2 diabetes mellitus without complications[ICD10: E11.9] Diagnosis: Mixed hyperlipidemia[ICD10: E78.2] Diagnosis: Essential (primary) hypertension[ICD10: I10] Diagnosis: Chronic obstructive pulmonary disease, unspecified[ICD10: J44.9] Neela HYMAN [facility] CPT-4: 35873 02/03/2017 ([id number]) OFFICE/OUTPATIENT VISIT EST Diagnosis: Type 2 diabetes mellitus with hyperglycemia[ICD10: E11.65] Diagnosis: Mixed hyperlipidemia[ICD10: E78.2] Diagnosis: Essential (primary) hypertension[ICD10: I10] Diagnosis: Chronic obstructive pulmonary disease, unspecified[ICD10: J44.9] Neela HYMAN [facility] CPT-4: 32147 10/30/2016 ([id number]) NO CHARGE Diagnosis: Acute bronchitis, unspecified[ICD10: J20.9] Sammi MIRZALINE Octavio HYMAN [facility] CPT-4: 77291 08/30/2016 ([id number]) OFFICE/OUTPATIENT VISIT EST Diagnosis: Acute bronchitis, unspecified[ICD10: J20.9] Diagnosis: Other seasonal allergic rhinitis[ICD10: J30.2] Sammi Reinaldo MIRZALINE Octavio HYMAN [facility] CPT-4: 64051 08/27/2016 ([id number]) OFFICE/OUTPATIENT VISIT EST Diagnosis: Type 2 diabetes mellitus without complications[ICD10: E11.9] Diagnosis: Mixed hyperlipidemia[ICD10: E78.2] Diagnosis: Essential (primary) hypertension[ICD10: I10] Neela HYMAN [facility] CPT-4: 48817 07/02/2016 ([id number]) OFFICE/OUTPATIENT VISIT EST Diagnosis: Acute bronchitis, unspecified[ICD10: J20.9] Sammi Reinaldo MIRZALINE Octavio HYMAN [facility] CPT-4: 33658 06/14/2016 ([id number]) OFFICE/OUTPATIENT VISIT EST Diagnosis: Acute bronchitis, unspecified[ICD10: J20.9] Sammi HYMAN DO [facility] CPT-4: 04469 06/13/2016 ([id number]) OFFICE/OUTPATIENT VISIT EST Diagnosis: Essential (primary) hypertension[ICD10: I10] Neela HYMAN DO [facility] CPT-4: 50304 05/14/2016 ([id number]) OFFICE/OUTPATIENT VISIT EST Diagnosis: Essential (primary) hypertension[ICD10: I10] Neela HYMAN DO [facility] CPT-4: 56456 04/29/2016 ([id number]) OFFICE/OUTPATIENT VISIT EST Diagnosis: Unspecified abdominal pain[ICD10: R10.9] Diagnosis: Left lower quadrant pain[ICD10: R10.32] Diagnosis: Left upper quadrant pain[ICD10: R10.12] Diagnosis: Essential (primary) hypertension[ICD10: I10] Neela HYMAN DO [facility] CPT-4: 44445 04/22/2016 ([id number]) OFFICE/OUTPATIENT VISIT EST Diagnosis: Type 2 diabetes mellitus without complications[ICD10: E11.9] Diagnosis: Mixed hyperlipidemia[ICD10: E78.2] Diagnosis: Essential (primary) hypertension[ICD10: I10] Neela HYMAN DO [facility] [facility] 80484 04/01/2016 ([id number]) OFFICE/OUTPATIENT VISIT EST Diagnosis: Type 2 diabetes mellitus with hyperglycemia[ICD10: E11.65] Diagnosis: Mixed hyperlipidemia[ICD10: E78.2] Diagnosis: Essential (primary) hypertension[ICD10: I10] Neela HYMAN DO [facility] CPT-4: 47360 11/30/2015 ([id number]) OFFICE/OUTPATIENT VISIT EST Diagnosis: Type 2 diabetes mellitus with diabetic neuropathy, unspecified[ICD10: E11.40] Diagnosis: Essential (primary) hypertension[ICD10: I10] Diagnosis: Mixed hyperlipidemia[ICD10: E78.2] Neela HYMAN [employer] [facility] CPT-4: 11231 08/29/2015 ([id number]) OFFICE/OUTPATIENT VISIT EST Diagnosis: COUGH[ICD10: R05] Diagnosis: Wheezing[ICD10: R06.2] Diagnosis: Type 2 diabetes mellitus with diabetic neuropathy, unspecified[ICD10: E11.40] Neela Valentineushahao MIRZANEELA Octavio HYMAN DO [facility] CPT-4: 78833 08/14/2015 ([id number]) OFFICE/OUTPATIENT VISIT EST Diagnosis: Other seasonal allergic rhinitis[ICD10: J30.2] Diagnosis: Dyspnea, unspecified[ICD10: R06.00] Diagnosis: Wheezing[ICD10: R06.2] Sammi MIRZALINE Octavio [facility] CPT-4: 97175 08/09/2015 ([id number]) OFFICE/OUTPATIENT VISIT EST Diagnosis: Essential (primary) hypertension[ICD10: I10] Diagnosis: Type 2 diabetes mellitus with hyperglycemia[ICD10: E11.65] Diagnosis: Mixed hyperlipidemia[ICD10: E78.2] Neela Sergeushahao RONNA ASHER HYMAN [employer] [facility] CPT-4: 42462 05/22/2015 ([id number]) OFFICE/OUTPATIENT VISIT EST Diagnosis: 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] Diagnosis: - I - HYPERTENSION[ICD9: 401.9] Diagnosis: - I - HYPERLIPIDEMIA NEC/NOS[ICD9: 272.4] Diagnosis: Left hand paresthesia[ICD9: 782.0] Neela Sergeushahao RONNA STERLING Octavio HYMAN DO [facility] CPT-4: 26359 02/13/2015 ([id number]) OFFICE/OUTPATIENT VISIT EST Diagnosis: HYPERLIPIDEMIA NEC/NOS[ICD9: 272.4] Diagnosis: 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] Neeladano ANNQUELINE Octavio HYMAN [employer] [facility] CPT-4: 62466 11/07/2014 ([id number]) OFFICE/OUTPATIENT VISIT EST Diagnosis: ALLERGIC RHINITIS[ICD9: 477.9] Diagnosis: WHEEZING[ICD9: 786.07] Neela MURILLO JulissaMendez ABY Duarte [facility] CPT-4: 67375 10/04/2014 ([id number]) OFFICE/OUTPATIENT VISIT EST Diagnosis: BRONCHITIS, ACUTE[ICD9: 466.0] Diagnosis: WHEEZING[ICD9: 786.07] Loren VanBecelaere NEELA JulissaMendez ABY Duarte [facility] CPT-4: 16175 09/22/2014 ([id number]) OFFICE/OUTPATIENT VISIT EST Diagnosis: DYSPNEA[ICD9: 786.09] Diagnosis: WHEEZING[ICD9: 786.07] Diagnosis: Arrhythmia[ICD9: 427.9] Loren MIRZALINE JulissaMendez VICENTE ER [facility] CPT-4: 56382 09/21/2014 ([id number]) OFFICE/OUTPATIENT VISIT EST Diagnosis: DM W/O COMPLICATION TYPE II, 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] Diagnosis: - I - HYPERLIPIDEMIA NEC/NOS[ICD9: 272.4] Diagnosis: - I - HYPERTENSION[ICD9: 401.9] Neela HYMAN [facility] CPT-4: 45044 06/28/2014 OFFICE/OUTPATIENT VISIT EST Diagnosis: SINUSITIS, ACUTE[ICD9: 461.9] Diagnosis: OTITIS MEDIA NOS[ICD9: 382.9] [facility] 09350 06/10/2014 ([id number]) OFFICE/OUTPATIENT VISIT EST Diagnosis: 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] Diagnosis: - I - HYPERLIPIDEMIA NEC/NOS[ICD9: 272.4] Diagnosis: - I - HYPERTENSION[ICD9: 401.9] Neela HYMAN [facility] CPT-4: 44175 03/29/2014 ([id number]) OFFICE/OUTPATIENT VISIT EST Diagnosis: 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] Diagnosis: - I - HYPERTENSION[ICD9: 401.9] Diagnosis: - I - HYPERLIPIDEMIA NEC/NOS[ICD9: 272.4] Diagnosis: Hand lesion[ICD9: 709.9] Neela MADRIGAL [facility] CPT-4: 73812 11/30/2013 ([id number]) OFFICE/OUTPATIENT VISIT EST Diagnosis: 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] Diagnosis: HYPERLIPIDEMIA NEC/NOS[ICD9: 272.4] Diagnosis: HYPERTENSION[ICD9: 401.9] Neela VASQUEZ [facility] CPT-4: 24859 08/03/2013 ([id number]) OFFICE/OUTPATIENT VISIT EST Diagnosis: DM W/O COMPLICATION TYPE II, 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] Diagnosis: HYPERTENSION[ICD9: 401.9] Diagnosis: HYPERLIPIDEMIA NEC/NOS[ICD9: 272.4] Neela Zhanghao ARMAAN DARLINE CostaMendez CRISTIANA [facility] CPT-4: 74936 04/06/2013 ([id number]) OFFICE/OUTPATIENT VISIT EST Diagnosis: 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] Diagnosis: HYPERLIPIDEMIA NEC/NOS[ICD9: 272.4] Diagnosis: HYPERTENSION[ICD9: 401.9] Neela MURILLO JulissaMendez SERGE VASQUEZ [facility] CPT-4: 43088 12/01/2012 ([id number]) OFFICE/OUTPATIENT VISIT EST Diagnosis: 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] Diagnosis: HYPERTENSION[ICD9: 401.9] Diagnosis: HYPERLIPIDEMIA NEC/NOS[ICD9: 272.4] Neela GREGORIO [facility]Mendez [facility]: 89582 08/04/2012 ([id number]) OFFICE/OUTPATIENT VISIT EST Diagnosis: URINARY FREQUENCY[ICD9: 788.41] Neela [facility]URILLO [facility]Mendez [facility] CPT-[facility]: 92505 06/01/2012 OFFICE/OUTPATIENT VISIT EST Diagnosis: Agitation[ICD9: 307.9] Diagnosis: Frequent urination[ICD9: 788.41] Janet MURILLO JulissaMendez [facility] CPT-4: 20746 05/29/2012 OFFICE/OUTPATIENT VISIT EST Diagnosis: SINUSITIS, ACUTE[ICD9: 461.9] Diagnosis: OTALGIA[ICD9: 388.70] Neela MURILLO JulissaMendez [facility] CPT-4: 47100 05/25/2012 OFFICE/OUTPATIENT VISIT EST Diagnosis: DM W/O COMPLICATION TYPE II, 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] Diagnosis: HYPERTENSION[ICD9: 401.9] Diagnosis: HYPERLIPIDEMIA NEC/NOS[ICD9: 272.4] Neela GREGORIO JulissaMendez [facility] CPT-4: 68390 04/07/2012 OFFICE/OUTPATIENT VISIT EST Diagnosis: FINGER INJURY[ICD9: 959.5] Janet Markel MURILLO S. OR ARPIT DO [facility] CPT-4: 73748 12/16/2011 ([id number]) OFFICE/OUTPATIENT VISIT EST Diagnosis: DM W/O COMPLICATION TYPE II, 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] Diagnosis: HYPERTENSION[ICD9: 401.9] Diagnosis: HYPERLIPIDEMIA NEC/NOS[ICD9: 272.4] eNela GREGORIO S. ORENDER DO [facility] CPT-4: 26123 12/03/2011 ([id number]) OFFICE/OUTPATIENT VISIT EST Diagnosis: 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] Diagnosis: HYPERLIPIDEMIA NEC/NOS[ICD9: 272.4] Diagnosis: HYPERTENSION[ICD9: 401.9] Neela Cunningham ORE NDER DO [facility] CPT-4: 25491 08/29/2011 OFFICE/OUTPATIENT VISIT EST Diagnosis: 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] Diagnosis: HYPERLIPIDEMIA NEC/NOS[ICD9: 272.4] Diagnosis: HYPERTENSION[ICD9: 401.9] Neela MURILLO SMendez ORE NDER DO [facility] CPT-4: 68603 05/30/2011 OFFICE/OUTPATIENT VISIT EST Diagnosis: SKIN SENSATION DISTURB[ICD9: 782.0] Neela GREGORIO SMendez ORENDER DO [facility] CPT-4: 14438 01/29/2011 OFFICE/OUTPATIENT VISIT EST Diagnosis: SKIN SENSATION DISTURB[ICD9: 782.0] Neela GREGORIO S. ORENDER DO [facility] CPT-4: 29032 01/14/2011 OFFICE/OUTPATIENT VISIT EST Neela MURILLO SMendez ORE NDER DO [facility] CPT- 4: 51633 01/01/2011 OFFICE/OUTPATIENT VISIT EST Neela MURILLO SMendez ORE NDER DO [facility] CPT- 4: 91778 11/29/2010 ([id number]) OFFICE/OUTPATIENT VISIT EST Neela HORAN SMendez ORENDER DO [facility] CPT-4: 29954 08/28/2010 ([id number]) OFFICE/OUTPATIENT VISIT, EST [facility] CPT-4: 37707 06/05/2010 ([id number]) OFFICE/OUTPATIENT VISIT, [facility] CPT-4: 01302 02/05/2010 ([id number]) OFFICE/OUTPATIENT VISIT, RENETTA HYMAN DO [facility] CPT-4: 72745 10/09/2009 ([id number]) OFFICE/OUTPATIENT VISIT, EST Neela HYMAN DO [facility] CPT-4: 10870 08/22/2009 Plan of Care Planned Activity Notes Codes Status Date Visit Diagnosis Plan: Chronic obstructiv e pulmonary [...] : J44.1 08/10/2019 Appointment: Neela Hyman WPtel: [address] [place] [address] ACUTE ILLNESS 08/10/2019 Visit Diagnosis Plan: Sore on toe Discussion: Keep farhat an/dry Keflex Notify if worsens ICD-9 : 709.9 ICD-10 : L98.9 07/06/2019 Appointment: Neela Hyman WPtel: [address] [place] [address] ACUTE ILLNESS 07/06/2019 Patient Education: Makenzieir- Opt[employer] Su [id number] https://www.[employer].com/samplemd/resources/getResource/61/7mp196be-69h8-0r04-18 Completed 07/06/2019 Visit Diagnosis Plan: Advanced chronic obstructive pul monary disease Discussion: Continue oxygen and pulmonary rehab Follow Up: 3 months ICD-9 : 496 ICD-10 : J44.9 05/10/2019 Visit Diagnosis Plan: Lymphoma involving lung Discussi on: Doing weekly lab and chemo ICD-9 : 202.82 ICD-10 : C85.99 05/10/2019 Appointment: Neela Hyman WPtel: [address] [place] [address] FOLLOW UP 05/10/2019 Appointment: Neela Hyman WPtel: [address] [place] [address] he called 04/14/19-- he was at physical [...] : E87.6 03/29/2019 Appointment: Neela Hyman WPtel: [address] [place] [address] Hospital Follow Up 03/29/2019 Appointment: Neela Hyman WPtel: [address] [place] [address] [place] INJECTION 03/04/2019 Visit Diagnosis Plan: Chronic obstructiv e pulmonary disease with (acute) exacerbation Discussion: Increase SVNS with duoneb to QID Prednisone taper ICD-9 : 491.21 ICD-10 : J44.1 01/05/2019 Visit Diagnosis Plan: Other nonspecific abnormal findi ng of lung field Discussion: Referral to pulmonology--will likely need bronchoscopy--path results discussed ICD-9 : 786.6 ICD-10 : R91.8 01/05/2019 Appointment: Neela Hyman WPtel: [address] [place] [address] [place] FOLLOW UP 01/05/2019 Patient Education: prednisone- [employer] Coupon [phone] https://www.[employer].KIXEYE/samplemd/resources/getResource/61/c6ll4855-687g-4z46-tu Completed 01/05/2019 Care Plan: Referral Order SNOMED-CT : 30 [id number] Pending 01/05/2019 Appointment: Neela Hyman WPtel: [address] [place] [address] [place] CANCELED 12/21/2018 Visit Diagnosis Plan: Tinea corporis Discussion: Diflu can--hold simvastatin and fenofibrate while taking ICD-9 : 110.5 ICD-10 : B35.4 12/09/2018 Visit Diagnosis Plan: Solitary pulmonary nodule Discus esmer: CT guided needle biopsy of RUL lung mass ICD-9 : 793.11 ICD-10 : R91.1 12/09/2018 Appointment: Neela Hyman WPtel: [address] [place] [address] [place] FOLLOW UP 12/09/2018 Appointment: Gely Harp [address] [place] [address] [place] NO SHOW 12/01/2018 Visit Diagnosis Plan: [...] 496 ICD-10 : J44.9 11/24/2018 Appointment: Neela Hymantel: [address] [place] [address] [place] FOLLOW UP 11/24/2018 Care Plan: PET IMAGE FULL BODY LOINC : 4 2711-2 Pending 11/24/2018 Appointment: Neela Hyman WPtel: [address] [place] [address] [place] Consult 09/21/2018 Visit Diagnosis Plan: Pneumonia, unspecified organism Discussion: Patient clinically improved. Recent CT scan from 09/07 showed unresolved right upper lobe pneumonia. Finished another 7 days of levaquin. Will repeat CBC early next week. Order sent with patient to get done at [facility]. FU CT recommended in 4 weeks. Patient states understanding. ICD-9 : 486 ICD-10 : J18.9 09/16/2018 Appointment: Amita Henderson [facility]Shed [id number] FOLLOW UP 09/16/2018 Visit Diagnosis Plan: Pneumonia, unspecified organism Discussion: Clinically patient feels and looks much better but need CT scan of chest due to ongoing round pneumonia in association with his known lymphoma ICD-9 : 486 ICD-10 : J18.9 09/03/2018 Appointment: Neela [facility]el[facility] [address] [facility] FOLLOW UP 09/03/2018 Care Plan: CT THORAX [...] before upcoming appt. with doctor. Fasting labs- [facility] Order sent with patient- CBC, CMP, TSH, Lipid, A1C ICD-9 : 250.02 ICD-10 : E11.65 08/27/2018 Visit Diagnosis Plan: Personal history of pneumonia (r ecurrent) Discussion: Much improved since last visit. Completed course of antibiotics. Seeing doctor next week for well visit. May consider repeat CXR at that appt. Patient states understanding. ICD-9 : V12.61 ICD-10 : Z87.01 08/27/2018 Appointment: Amita Henderson [id number] 08/27/2018 Visit Diagnosis Plan: Other [...] : I10 08/13/2018 Appointment: Amita Henderson [id number] 08/13/2018 Appointment: Amita Henderson [id number] CANCELED 08/13/2018 Patient Education: prednisone- [employer] Coupon [id number] https://www.MyMundus/sampleSnapsheet/resources/getResource/61/dw37ku6s-6k69-0vg5-8y Completed 08/13/2018 Visit Diagnosis Plan: Other specified [...] ICD-10 : J18.9 08/11/2018 Appointment: Amita Henderson [address] [place], [place] [id number] ACUTE ILLNESS 08/11/2018 Care Plan: CHEST X-RAY 2VW FRONTAL&LATL LOINC : 85581-4 Pending 07/20/2018 Visit Diagnosis Plan: Dyspnea, unspecified Discussion: CXR- to be completed at the hospital. Will call with results and any adjustments in plan. Solumedrol 125 administered in clinic Prednisone 20 mg BID x 5 days- start tomorrow ICD-9 : 786.09 ICD-10 : R06.00 07/16/2018 Appointment: Amita Henderson [address] [place], [place] [id number] ACUTE ILLNESS 07/16/2018 Patient Education: prednisone- [employer] Coupon [phone] https://www.[employer].KIXEYE/samplemd/resources/getResource/61/25v3f6ei-df64-4mc9-j0 Completed 07/16/2018 Visit Diagnosis Plan: Acute bronchitis due to other sp ecified organisms Discussion: Kenalog 40 mg IM administered in clinic. Doxycycline called into [facility]. Take as directed. Continue nebulizer and Trelegy. Follow up if symptoms are not improving with treatment regimen. Patient states understanding of all instruction. ICD-9 : 466.0 ICD-10 : J20.8 07/13/2018 Appointment: Amita Henderson [address] [place], [place] [id number] ACUTE ILLNESS 07/13/2018 Patient Education: doxycycline hyclate- [employer] Cou saritha [id number] https://www.W[employer]rikworks.com/samplemd/resources/getResource/61/4a458k11-6p1y-6074-7i Completed 07/13/2018 Care Plan: [place] : [address]-6 Pending 07/13/2018 Care Plan: CBC Pending 07/13/2018 Care Plan: A1C HPLC LOINC : 77023-6 Pending 07/13/2018 Visit Diagnosis Plan: Mixed hyperlipidemia [...] : I10 06/03/2018 Appointment: Neela Hyman WPtel: [address] [place] [address] FOLLOW UP 06/03/2018 Visit Diagnosis Plan: Chronic [...] ICD-10 : J44.9 05/04/2018 Appointment: Gely Harp [address] [place] [address] ACUTE ILLNESS 05/04/2018 Visit Diagnosis Plan: Localized edema Discussion: Cont inue lasix and potassium at every other day Recheck lab and fwup in 3mos Follow Up: 3 months ICD-9 : 782.3 ICD-10 : R60.0 03/03/2018 Appointment: Neela Hyman WPtel: [address] [place], [place] [phone] [place] FOLLOW UP 03/03/2018 Patient Education: Patient Medication Summary Completed 03/03/2018 Visit Diagnosis Plan: Localized edema Discussion: Finch ge lasix and potassium to every other day Check Chem 7 in 2 weeks and fwup ICD-9 : 782.3 ICD-10 : R60.0 02/17/2018 Appointment: Neela Hyman WPtel: [address] [place] [address] FOLLOW UP 02/17/2018 Patient Education: Patient Medication [...] Appointment: Neela Hyman [facility]Ptel: [address] [facility] FOLLOW UP 02/10/2018 Patient Education: Patient Medication [...] Appointment: Neela Hyman WPtel: [address] [facility] [id number] FOLLOW UP 11/05/2017 Patient Education: Patient Medication Summary Completed 11/05/2017 Patient Education: Patient Medication Summary Completed 11/03/2017 Care Plan: [place] : [address]-6 Pending 11/03/2017 Care Plan: LIPID PANEL LOINC : 14975-6 Pending 11/03/2017 Care Plan: CBC Pending 11/03/2017 Care Plan: A1C HPLC LOINC : 18142-7 Pending 11/03/2017 Visit Diagnosis Plan: Allergic urticaria Discussion: l richmondon was placed under fluorescent lamp and showed [...] : L50.0 09/09/2017 Appointment: Gely Harp [address] [facility] ACUTE ILLNESS 09/09/2017 Patient Education: Patient Medication [...] : R59.1 08/07/2017 Appointment: Gely Harp [address] [facility] Hospital Follow Up 08/07/2017 Patient Education: Patient Medication Summary Completed 08/07/2017 Visit Diagnosis Plan: Type 2 diabetes mellitus without complications Discussion: Accuchecks daily Lab discussed Continue current meds ICD-9 : 250.00 ICD-10 : E11.9 08/04/2017 Visit Diagnosis Plan: Essential (primary) hypertension Discussion: Increase Cardizem CD to 360mg daily ICD-9 : 401.9 ICD-10 : I10 08/04/2017 Appointment: Neela Hyman WPtel: [address] [facility] FOLLOW UP 08/04/2017 Patient Education: Patient Medication Summary Completed 08/04/2017 Patient Education: Patient Medication Summary Completed 07/31/2017 Care Plan: [place] : [address]-7 Pending 07/31/2017 Care Plan: ASSAY THYROID STIM HORMONE Pen ding 07/31/2017 Care Plan: LIPID PANEL LOINC : 83405-4 Pending 07/31/2017 Care Plan: CBC Pending 07/31/2017 Care Plan: A1C HPLC LOINC : 97701-1 Pending 07/31/2017 Patient Education: Patient Medication Summary Completed 06/19/2017 Patient Education: Patient Medication Summary Completed 06/09/2017 Care Plan: CT SOFT TISSUE [place] : [address]-1 Pending 06/09/2017 Visit Diagnosis Plan: Acute sialoadenitis [...] ICD-10 : B02.9 06/04/2017 Appointment: Gely Harp [address] [place], [place] [id number] ACUTE ILLNESS 06/04/2017 Patient Education: Patient Medication [...] ICD-10 : B02.9 06/02/2017 Appointment: Gely Harp [address] [place], [place] [address] ACUTE ILLNESS 06/02/2017 Patient Education: Patient [...] E11.9 05/05/2017 Appointment: Neela Hyman WPtel: [address] [facility] FOLLOW UP 05/05/2017 Patient Education: Patient Medication Summary Completed 05/05/2017 Patient Education: Patient Medication Summary Completed 05/01/2017 Care Plan: A1C HPLC [facility] : 35974-2 Pending 05/01/2017 Visit Diagnosis Plan: Chronic obstructiv [...] ICD-10 : H61.23 04/10/2017 Appointment: Gely Harp [address] [place] [address] ACUTE ILLNESS 04/10/2017 Patient Education: Patient Medication Summary Completed 04/10/2017 Appointment: Neela Hyman WPtel: [address] [place] [address] INJECTION 03/28/2017 Patient Education: Patient Medication Summary [...] : J44.9 02/03/2017 Appointment: Neela Hyman WPtel: [address] [place] [address] FOLLOW UP 02/03/2017 Patient Education: Patient Medication Summary Completed 02/03/2017 Patient Education: Patient Medication Summary Completed 01/30/2017 Care Plan: [place] : [address]-1 Pending 01/30/2017 Care Plan: LIPID PANEL LOINC : 87505-4 Pending 01/30/2017 Care Plan: CBC Pending 01/30/2017 Care Plan: A1C HPLC LOINC : 39176-4 Pending 01/30/2017 Care Plan: ASSAY OF PSA [...] : E11.65 10/30/2016 Appointment: Neela Hyman WPtel: [address] [place], [place] [address] [place] / lm ~sl 10/30 confirmed~sl FOLLOW UP 11/2016 Patient Education: Patient Medication Summary Completed 10/30/2016 Patient Education: Patient Medication Summary Completed 10/24/2016 Visit Diagnosis Plan: Acute bronchitis, unspecified Di scussion: Patient sounds and looks much improved Continue current regimen Keep appt with Dr Levi for Friday Follow up PRN ICD-9 : 466.0 ICD-10 : J20.9 08/30/2016 [facility]ment[facility] [address] [facility] [facility] / rang and rang rang [...] : J20.9 08/27/2016 Appointment: Sammi [facility] [address] [facility] [facility] 08/27/2016 Patient Education: Patient Medication Summary Completed 08/27/2016 Care Plan: Referral Order SNOMED-CT : 30 [id number] Pending 08/27/2016 Visit Diagnosis Plan: Type 2 [...] : I10 07/02/2016 Appointment: Neela Hyman WPtel: [address] [place], [place] [address] 07/01 rang and elly`sl FOLLOW UP 7 Patient Education: Patient Medication Summary Completed 07/02/2016 Patient Education: Patient Medication Summary Completed 06/27/2016 Care Plan: LIPID PANEL LOINC : 64302-6 Pending 06/27/2016 Care Plan: [place] : [address]-6 Pending 06/27/2016 Care Plan: A1C HPLC LOINC : 19895-7 Pending 06/27/2016 Visit Diagnosis Plan: Acute bronchitis, [...] : J20.9 06/14/2016 Appointment: Sammi [facility]era [address] [facility] [facility] 06/14/2016 Patient Education: Patient [...] : J20.9 06/13/2016 Appointment: Sammi Najera [address] [facility] ACUTE ILLNESS 06/13/2016 Patient Education: Patient Medication Summary Completed 06/13/2016 Care Plan: CHEST X-RAY 2VW FRONTAL&LATL LOINC : 13459-0 Pending 06/13/2016 Visit Plan: Increase metoprolol to 100mg po BID BP readings and BP check in 1month 05/14/2016 Appointment: Neela Hyman WPtel: [address] [place], [place] [phone] 05/13 rang and rang`sl FOLLOW UP 6 Patient Education: Patient Medication Summary Completed 05/14/2016 Visit Plan: Increase metoprolol to 50mg BID BP check in 1 week f/u BP appt 2 weeks consider musculoskeletal if pain returns 04/29/2016 Appointment: Neela Hyman WPtel: [address] [place], [place] [phone] 04/25 confimred~sl FOLLOW UP 04/29/2016 Patient Education: Patient Medication Summary Completed 04/29/2016 Visit Plan: Stat CT scan of abdomen/pelv is to look for stone Hydrate and use tramadol prn Increase metoprolol to 25mg po BID Will see urology pending CT scan results 04/22/2016 Appointment: Neela Hyman WPtel: [address] [place] [address] 04/17 confirmed-sp ACUTE ILLNESS 04/22/2016 Patient Education: [...] flu shot 04/01/2016 Appointment: Neela Hyman WPtel: [address] [place], [place] [phone] [place] FOLLOW UP 04/01/2016 Patient Education: Patient Medication Summary Completed 04/01/2016 Patient Education: [facility] Saving AutoInj - 18-64 - Dynamic Heber l ID Completed 04/01/2016 Patient Education: Patient Medication Summary Completed 03/28/2016 Care Plan: A1C HPLC LOINC : 85886-4 Pending 03/28/2016 Care Plan: [place] : [address]-5 Pending 03/28/2016 Visit Plan: Lab discussed Continue curre nt meds Accuchecks daily 11/30/2015 Appointment: Neela Hyman WPtel: [address] [place], [place] [phone] 11/28 confirmed~sl FOLLOW UP 11/30/2015 Patient Education: Patient Medication Summary Completed 11/30/2015 Appointment: Neela Hyman WPtel: [address] [place], [place] [phone] RESCHEDULED 11/28/2015 Patient Education: Patient Medication Summary Completed 11/23/2015 Care Plan: [place] : [address]-3 Pending 11/23/2015 Care Plan: LIPID PANEL LOINC : 47823-6 Pending 11/23/2015 Care Plan: CBC Pending 11/23/2015 Care Plan: A1C HPLC LOINC : 94570-2 Pending 11/23/2015 Visit Plan: Lab discussed Accuchecks richard ly Continue current meds Cymbalta helping with feet and mood 08/29/2015 Appointment: Neela Hyman WPtel: [address] [place], [place] [address] [place] FOLLOW UP 08/29/2015 Patient Education: Patient Medication Summary Completed 08/29/2015 Visit Plan: Check CXR Stop all steroids and steroid inhalers Use SVN with but change to duoneb Add singulair for allergy etiology Change fluoxetine to cymbalta 60mg daily Viagra samples given to try prn--warned of no nitrates 08/14/2015 Appointment: Neela Hyman WPtel: [address] [place], [place] [address] lm to reschedule ~sl 07/27 lm ~sl 08/09 busy 08/10 fer rosales-sp Annual Well Visit 08/14/2015 Patient Education: Patient Medication Summary Completed 08/14/2015 Care Plan: CHEST X-RAY 2VW FRONTAL&LATL LOINC : 33907-4 Ordered 08/14/2015 Visit Plan: Decadron 8mg given [...] as expected 08/09/2015 [facility]ment[facility] [facility] [facility] Follow [facility] 08/09/2015 Patient Education: Patient Medication Summary Completed 08/09/2015 Patient Education: [facility] - Saving AutoInj - 18-64 - Dynamic [...] it 05/22/2015 Appointment: Neela Hyman WPtel: [address] [place], [place] [phone] 05/17 confirmed~sl FOLLOW UP 05/22/2015 Patient Education: Patient Medication Summary Completed 05/22/2015 Patient Education: Patient Medication Summary Completed 05/15/2015 Visit Plan: Obtain EMGs done at [facility] from when fractured left arm Lab discussed Accuchecks daily 02/13/2015 Appointment: Neela Hyman WPtel: [address] [place], [place] [id number] 02/10 confrimed FOLLOW UP 02/13/2015 Patient Education: Patient Medication Summary Completed 02/13/2015 Patient Education: Patient Medication Summary Completed 02/09/2015 Visit Plan: discussed lab add fenofibrat e 134mg po daily recheck fasting lab in 3 months, CBC, CMP, Lipids, hgb AIC 11/07/2014 Appointment: Neela [facility]yman [facility]el[facility] [phone] [facility] [id number] 11/04 appt confirmed cn FOLLOW UP 015 Patient Education: Patient Medication Summary Completed 11/07/2014 Patient Education: Patient Medication Summary Completed 11/03/2014 Visit Plan: Continue loratadine 10mg richard ly Notify if symptoms return 10/04/2014 Appointment: Neela Hyman WPtel: [address] [place] [address] confirmed on 10/03 at 2:42pm FOLLOW UP 09/23 Patient Education: Patient Medication Summary Completed 10/04/2014 Appointment: Neela Hyman WPtel: [address] [place] [address] ACUTE ILLNESS 09/28/2014 Appointment: Loren Garza WPtel: [address] [place] [address] FOLLOW UP 09/22/2014 Patient Education: Patient Medication Summary Completed 09/22/2014 Appointment: Loren Garza WPtel: [address] [place] [address] ACUTE ILLNESS 09/21/2014 Patient Education: Patient Medication Summary Completed 09/21/2014 Patient Education: [facility] - Saving AutoInj - 18+ - Dynamic Portal ID Completed 09/21/2014 Visit Plan: Lab discussed Continue daily accuchecks Continue current meds 06/28/2014 Appointment: Neela Hyman WPtel: [address] [place], [place] [phone] FOLLOW UP 06/28/2014 Patient Education: Patient Medication Summary Completed 06/28/2014 Patient Education: Patient Medication Summary Completed 06/23/2014 Appointment: Sarah Sunshine WPtel: [address] [place] [address] ACUTE ILLNESS 06/10/2014 Patient Education: Patient Medication Summary Completed 06/10/2014 Patient Education: [facility] - Saving AutoInj - 18+ - Dynamic Portal ID Completed 06/10/2014 Visit Plan: Lab discussed Continue daily accuchecks Continue current meds 03/29/2014 Appointment: Neela Hyman WPtel: [address] [place], [place] [phone] FOLLOW UP 03/29/2014 Patient Education: Patient Medication Summary Completed 03/29/2014 Patient Education: Patient Medication Summary Completed 03/23/2014 Visit Plan: Lab discussed Continue curre nt meds and accuchecks See surgery for removal of hand lesion 11/30/2013 Appointment: Neela Hymantel: [address] [place], [place] [phone] 11/29 no answer FOLLOW UP 11/30/2013 Patient Education: Patient Medication Summary Completed 11/30/2013 Visit Plan: Lab discussed Continue curre nt meds 08/03/2013 Appointment: Neela Hyman WPtel: [address] [place], [place] [id number] FOLLOW UP 08/03/2013 Patient Education: Patient Medication Summary Completed 08/03/2013 Visit Plan: Lab Discussed Will continue current meds and pt will get back on diet/exercise Check lab in 4mos and fwup 04/06/2013 Appointment: Neela Hyman WPtel: [address] [place], [place] [phone] FOLLOW UP 04/06/2013 Patient Education: Patient Medication Summary Completed 04/06/2013 Visit Plan: Lab discussed Continue daily accuchecks 12/01/2012 Appointment: Neela Hymantel: [address] [place], [place] [phone] 11/30 no answer FOLLOW UP 12/01/2012 Patient Education: Patient Medication Summary Completed 12/01/2012 Visit Plan: Continue current meds and da russell accuchecks Lab discussed 08/04/2012 Appointment: Neela Hyman WPtel: [address] [place], [place] [phone] FOLLOW UP 08/04/2012 Patient Education: Patient Medication Summary Completed 08/04/2012 Appointment: Neela Hyman WPtel: [address] [place], [place] [phone] [facility] 06/01/2012 Patient Education: Patient Medication Summary Completed 06/01/2012 Appointment: Janet Jean Baptiste WPtel: [address] [place], [place] [phone] FOLLOW UP 05/29/2012 Patient Education: Patient Medication Summary Completed 05/29/2012 Visit Plan: pt states Dr. Hyman told h is to increase his Prozac dose while she was talking to her at [facility]. Discussed that pt. should not increase or decrease dosage without Dr's knowledge. Pt. will seek hearing test here in town at the hearing aid place on [address]. Discussed that ear pain is likely caused by sinus pressure. Pt. will notify if no improvement. 05/25/2012 Appointment: Janet Jean Baptiste WPtel: [address] [place], [place] [phone] ACUTE ILLNESS 05/25/2012 Patient Education: Patient Medication Summary Completed 05/25/2012 Visit Plan: Continue current meds Contin ue daily accuchecks but alternate times Increase fish oil to 3gm daily 04/07/2012 Appointment: Neela Hyman WPtel: [address] [place], [place] [phone] 04/06 FOLLOW UP 04/07/2012 Patient Education: Patient Medication Summary Completed 04/07/2012 Appointment: Janet Jean Baptiste WPtel: [address] [place], [place] [phone] ACUTE ILLNESS 12/16/2011 Patient Education: Patient Medication Summary Completed 12/16/2011 Visit Plan: Increase 12/03/2011 Appointment: Neela Hyman WPtel: [address] [place], [place] [phone] FOLLOW UP 12/03/2011 Patient Education: Patient Medication Summary Completed 12/03/2011 Visit Plan: Continue current meds Contin ue accuchecks 08/29/2011 Appointment: Neela Hyman WPtel: [address] [place], [place] [phone] [place] FOLLOW UP 08/29/2011 Patient Education: Patient Medication Summary Completed 08/29/2011 Visit Plan: Continue current meds except restart zocor 05/30/2011 Appointment: Neela Hyman WPtel: [address] [place] [address] [place] FOLLOW UP 05/30/2011 Patient Education: Patient Medication Summary Completed 05/30/2011 Visit Plan: Continue tennis elbow strap May go back to weight-lifing--light weigts every other day 01/29/2011 Appointment: Neela Hyman WPtel: [address] [place] [address] FOLLOW UP 01/29/2011 Patient Education: Patient Medication Summary Completed 01/29/2011 Visit Plan: Continue tennis elbow strap and anti-inflammatories 01/14/2011 Appointment: Neela Hyman WPtel: [address] [place] [address] FOLLOW UP 01/14/2011 Appointment: Janet Jean Baptiste WPtel: [address] [place] [address] NEW PATIENT 01/14/2011 Patient Education: Patient Medication Summary Completed 01/14/2011 Appointment: Neela Hyman WPtel: [address] [place] [address] FOLLOW UP 01/08/2011 Appointment: Neela Hyman WPtel: [address] [place] [address] [place] FOLLOW UP 01/01/2011 Appointment: Neela Hyman WPtel: [address] [place], [place] [address] UA 01/01/2011 Patient Education: Patient Medication Summary [...] given. 11/29/2010 Appointment: Janet Jean Baptiste WPtel: [address] [place] [address] ACUTE ILLNESS 11/29/2010 Patient Education: Patient Medication Summary Completed 11/29/2010 Visit Plan: Cont current meds Check CMP, Lipids, HbA1C 08/28/2010 Appointment: Neela Hyman WPtel: [address] [place] [address] FOLLOW UP 08/28/2010 Patient Education: Patient Medication Summary Completed 08/28/2010 Visit Plan: Cont current meds and accuch ecks Add Zocor 40mg q HS Check Lipids and HbA1C in 3mos 06/05/2010 Appointment: Neela Hyman WPtel: [address] [place] [address] FOLLOW UP 06/05/2010 Patient Education: Patient Medication Summary Completed 06/05/2010 Visit Plan: Check Lipids and HbA1C 02/05/2010 Appointment: Neela Hyman WPtel: [address] [place] [address] FOLLOW UP 02/05/2010 Patient Education: Patient Medication Summary Completed 02/05/2010 Visit Plan: HbA1C in 3mos. Continue Accu checks BID alternating times. Check HbA1C, CMP, Lipids 10/09/2009 Appointment: Neela Hyman WPtel: [address] [place] [address] FOLLOW UP 10/09/2009 Patient Education: Patient Medication Summary Completed 10/09/2009 Visit Plan: Saline nasal flushes prn. Ty lenol/Motrin prn headache. Notify if persists/symptoms worsening. 08/22/2009 Appointment: Neela Hyman WPtel: [address] [place] [address] ACUTE ILLNESS 08/22/2009 Patient Education: Patient Medication Summary Completed 08/22/2009 Referral: Aubrey Rand WPtel: [phone] [facility] [id number] [place] Office will verfy his insurance then they will contact patient Completed Referral: Shahbaz Brennan WPtel: [address] [id number] [place] Referral Completed Referral: Ion Levi. [address] [facility] [id number] [place] Referral Appointment Requested Referral: Ion Levi. [address] [facility] [id number] [place] Referral Appointment Requested Instructions Comment . [...] with it . Obtain EMGs done at [facility] from when fractured left arm Lab discussed [...] while she was talking to her at [facility]. Discussed that pt. should not increase or decrease dosage without Dr's knowledge. Pt. will seek hearing test here in town at the hearing aid place on [address]. Discussed that ear pain is likely caused [...] data not found Advance Directives Filename Date Will06/06/2011
--- OUTSIDE RECORDS SUMMARY | 2019-12-09 09:07 | XMS REPORT | CCD ---
Author Author Michael Hyman D.O. Organization NEELA HYMAN DO [facility] Address [address] [place] [address] Phone Care Team Providers Care Food Service Hotel Runner Name Role Phone Neela Hyman D.O., PP Unavailable CCM Unavailable Summary Purpose Interface Exchange Insurance Providers Payer name Policy type / Coverage type Covered alliance party ID Effective Begin Date Effective End Date ABS FOR [employer] Commercial Insurance [id number] Unknown Family History Family History data not found Social History Social History Element Codes Description Effective Dates Marital status Unknown 05/30/[address]: 2097949 Former smoker quit 25 years ago 01/01/2011 [...] Start Date Stop Date Status Fill Instructions duloxetine 60 mg capsule,delayed release RxNorm: 271776 TAKE ONE CAPSULE BY MOUTH EVERY DAY 08/16/2019 02/11/2020 Active metoprolol succinate ER 100 mg tablet,extended release 24 hr RxNorm: 748488 TAKE ONE TABLET BY MOUTH TWICE A DAY 08/16/2019 05/11/2020 Active potassium chloride ER 20 mEq tablet,extended release RxNorm: 760867 1 Tablet(s) Oral two times a day 07/22/2019 10/19/2019 Active metformin 500 mg tablet RxNorm: 830936 2 Tablet(s) Oral two afshan es a day 07/13/2019 09/11/2019 Active Singulair 10 mg tablet RxNorm: 084329 TAKE ONE TABLET BY MOUTH EVERY EVENING 07/06/2019 01/02/2020 Active Reselected prescribe r from PEG MAHER to NEELA HYMAN Keflex 500 mg capsule RxNorm: 465497 1 Capsule(s) Oral three ti mes a day 07/06/2019 07/13/2019 Inactive Singulair 10 mg tablet RxNorm: 151878 TAKE ONE TABLET BY MOUTH EVERY EVENING 06/22/2019 07/05/2019 Inactive Reselected prescribe r from PEG MAHER to NEELA HYMAN Zocor 40 mg tablet RxNorm: 824245 TAKE ONE TABLET BY M OUTH EVERY NIGHT AT BEDTIME 06/21/2019 11/17/2019 Active MagOx 400 mg (241.3 mg magnesium) tablet RxNorm: 762907 1 Table t(s) Oral QD 06/21/2019 08/20/2019 Active diltiazem ER 360 mg capsule,24 hr,extended release RxNorm: 8 48503 TAKE ONE CAPSULE BY MOUTH AT BEDTIME -REPLACES 300MG 05/17/2019 11/12/2019 Active MagOx 400 mg (241.3 mg magnesium) tablet RxNorm: 357019 1 Table t(s) Oral QD 04/26/2019 06/20/2019 Inactive Lasix 40 mg tablet RxNorm: 223372 40 MG PO DAILY 04/12/2019 No Stop Da te Active Benicar 40 mg tablet RxNorm: 526286 1 Tablet(s) Oral QD 03/29/2019 Active potassium chloride ER 20 mEq tablet,extended release RxNorm: 216667 1 Tablet(s) Oral two times a day 03/29/2019 06/27/2019 Inactive potassium chloride ER 20 mEq tablet,extended release RxNorm: 310680 1 Tablet(s) Oral QD 03/29/2019 03/28/2019 Inactive Benicar 40 mg tablet RxNorm: 874590 1 Tablet(s) Oral QD 03/29/2019 Inactive MagOx 400 mg (241.3 mg magnesium) tablet RxNorm: 902797 1 Table t(s) Oral QD 03/29/2019 04/25/2019 Inactive metformin 500 mg tablet RxNorm: 188144 2 Tablet(s) Oral two afshan es a day 03/29/2019 07/12/2019 Inactive fenofibrate micronized 134 mg capsule RxNorm: 451711 TA KE ONE CAPSULE BY MOUTH EVERY DAY 03/05/2019 08/31/2019 Active duloxetine 60 mg capsule,delayed release RxNorm: 905527 1 Capsu le(s) PO QD 01/28/2019 07/26/2019 Inactive Trelegy Ellipta 100 mcg-62.5 mcg-25 mcg powder for inhalatio n RxNorm: 5201660 1 Puff(s) INH QD 01/06/2019 12/31/2019 Active 90 day supply prednisone 20 mg tablet RxNorm: 190270 1 Tablet(s) PO T ID for 3 days then 1 po BID for 3 days then 1 po daily for 3 days 01/05/2019 03/28/2019 Inacti ve metformin ER 1,000 mg tablet,extended release 24hr RxNorm: 1 743090 TAKE TWO TABLETS (1000MG) BY MOUTH TWO TIMES A DAY 12/22/2018 07/13/2019 Inacti ve Diflucan 100 mg tablet RxNorm: 864842 1 Tablet(s) PO QD 12/09/2018 Inactive prednisone 20 mg tablet RxNorm: 097833 1 Tablet(s) PO B ID for 4 days then 1 po daily for 4 days 11/24/2018 01/04/2019 Inactive albuterol sulfate 2.5 mg/3 mL (0.083 %) solution for n ebulization RxNorm: 492929 3 Milliliter(s) INH ONE VIAL VIA NEBULIZER EVERY 4 HOURS 019 07/21/2019 Inactive [AttnRPh: Saving apply/adjudicate RxGRP: SG20 RxBIN:[id number] RxPCN: ID#:[id number]] Trelegy Ellipta 100 mcg-62.5 mcg-25 mcg powder for inhalatio n RxNorm: 8895274 1 Puff(s) INH QD 10/27/2018 01/06/2019 Inactive 90 day supply diltiazem ER 360 mg capsule,24 hr,extended release RxNorm: 8 33589 TAKE ONE CAPSULE BY MOUTH AT BEDTIME -REPLACES 300MG 10/13/2018 04/10/2019 Inactive metoprolol succinate ER 100 mg tablet,extended release 24 hr RxNorm: 067777 TAKE ONE TABLET BY MOUTH TWICE A DAY 10/13/2018 07/09/2019 Inactive Trelegy Ellipta 100 mcg-62.5 mcg-25 mcg powder for inhalatio n RxNorm: 0337863 INHALE ONE PUFF ONCE DAILY 09/07/2018 10/27/2018 Inactive Levaquin 750 mg tablet RxNorm: 776627 1 Tablet(s) PO QD 09/07/2018 Inactive Levaquin 750 mg tablet RxNorm: 496810 1 Tablet(s) PO QD 09/07/2018 Inactive prednisone 20 mg tablet RxNorm: 317142 2 Tablet(s) PO QAM 08/13/2018 08/19/2018 Inactive Levaquin 500 mg tablet RxNorm: 579499 1 Tablet(s) PO QD 08/11/2018 Inactive fenofibrate micronized 134 mg capsule RxNorm: 471143 TA KE ONE CAPSULE BY MOUTH EVERY DAY 08/10/2018 02/05/2019 Inactive prednisone 20 mg tablet RxNorm: 317968 1 Tablet(s) PO BID 07/16/2018 07/20/2018 Inactive doxycycline hyclate 100 mg capsule RxNorm: 7381178 1 Capsule(s) PO BID 07/13/2018 07/22/2018 Inactive duloxetine 60 mg capsule,delayed release RxNorm: 748275 TAKE ONE CAPSULE BY MOUTH ONCE A DAY 07/08/2018 01/28/2019 Inactive Lasix 40 mg tablet RxNorm: 134293 1 TABLET(S) PO QAM 06/08/201809/05 Inactive potassium chloride ER 20 mEq tablet,extended release(p art/cryst) RxNorm: 8099916 1 TABLET(S) PO QD 06/08/2018 09/05/2018 Inactive metformin ER 1,000 mg tablet,extended release 24hr RxNorm: 1 630369 TAKE TWO TABLETS (1000MG) BY MOUTH TWO TIMES A DAY 06/01/2018 11/27/2018 Inacti ve Benicar HCT 40 mg-25 mg tablet RxNorm: 738881 TAKE ONE TABLET BY MOUTH ONCE DAILY 05/11/2018 03/28/2019 Inactive Zocor 40 mg tablet RxNorm: 968398 TAKE ONE TABLET BY M OUTH EVERY NIGHT AT BEDTIME 05/11/2018 06/20/2019 Inactive Trelegy Ellipta 100 mcg-62.5 mcg-25 mcg powder for inhalatio n RxNorm: 3101342 1 PUFF(S) INH QD 04/06/2018 07/04/2018 Inactive diltiazem ER 360 mg capsule,24 hr,extended release RxNorm: 8 85181 1 Capsule(s) PO QHS replaces 300mg dose 03/30/2018 09/25/2018 Inactive Trelegy Ellipta 100 mcg-62.5 mcg-25 mcg powder for inhalatio n RxNorm: 8946696 1 Puff(s) INH QD 02/24/2018 02/23/2018 Inactive Trelegy Ellipta 100 mcg-62.5 mcg-25 mcg powder for inhalatio n RxNorm: 0393869 1 Puff(s) INH QD 02/24/2018 02/23/2018 Inactive Trelegy Ellipta 100 mcg-62.5 mcg-25 mcg powder for inhalatio n RxNorm: 7757406 1 Puff(s) INH QD 02/24/2018 04/05/2018 Inactive Lasix 40 mg tablet RxNorm: 685637 1 Tablet(s) PO QAM 02/10/201803/11 Inactive potassium chloride ER 20 mEq tablet,extended release(p art/cryst) RxNorm: 8401361 1 Tablet(s) PO QD 02/10/2018 03/11/2018 Inactive fenofibrate micronized 134 mg capsule RxNorm: 970835 1 Capsule( s) PO QD 01/30/2018 07/28/2018 Inactive metoprolol succinate ER 100 mg tablet,extended release 24 hr RxNorm: 429479 TAKE ONE TABLET BY MOUTH TWICE A DAY 12/30/2017 09/25/2018 Inactive metformin ER 1,000 mg tablet,extended release 24hr RxNorm: 1 928076 1 Tablet(s) PO BID 11/17/2017 05/15/2018 Inactive [SAVINGS FOR NON -COVERED DRUGS -- BIN:859072, PCN: ASPROD1, Group: XXXXX, ID# [id number], Questions: . THIS IS NOT INSURANCE.] Benicar HCT 40 mg-25 mg tablet RxNorm: 697386 1 Tablet(s) PO QD 05/10/2018 Inactive [SAVINGS FOR NON-COVERED JESU GS -- BIN:842075, PCN: ASPROD1, Group: XXXXX, ID# [id number], Questions: . THIS IS NOT INSURANCE.] Bactroban 2 % topical cream RxNorm: 248777 Application TOP BID 10/2409/02/2018 Inactive clindamycin HCl 300 mg capsule RxNorm: 997421 2 Capsule(s) PO TID 0 11/05/2017 11/18/2017 Inactive duloxetine 60 mg capsule,delayed release RxNorm: 482931 Capsule(s) TAKE ONE CAPSULE BY MOUTH ONCE DAILY 09/24/2017 09/23/2017 Inactive triamcinolone acetonide 0.1 % topical ointment RxNorm: 8108974 1 TOP BID 09/09/2017 11/04/2017 Inactive Bactrim DS 800 mg-160 mg tablet RxNorm: 854218 1 Tablet(s) PO BID 0 08/07/2017 08/13/2017 Inactive metronidazole 500 mg tablet RxNorm: 667842 1 Tablet(s) PO BID 08/0708/13/2017 Inactive diltiazem ER 360 mg capsule,24 hr,extended release RxNorm: 8 87121 1 Capsule(s) PO QHS replaces 300mg dose 08/04/2017 01/30/2018 Inactive fenofibrate micronized 134 mg capsule RxNorm: 434531 1 Capsule( s) PO QD 07/21/2017 01/30/2018 Inactive Zocor 40 mg tablet RxNorm: 374400 1 Tablet(s) PO QHS 07/21/201705/10 Inactive GB duloxetine 60 mg capsule,delayed release RxNorm: 025904 Capsule(s) TAKE ONE CAPSULE BY MOUTH ONCE DAILY 06/24/2017 09/24/2017 Inactive Cleocin HCl 300 mg capsule RxNorm: 982308 2 Capsule(s) PO BID 06/0206/08/2017 Inactive acyclovir 800 mg tablet RxNorm: 692371 1 Tablet(s) PO 5x day 201706/08/2017 Inactive diltiazem ER 300 mg capsule,24 hr,extended release RxNorm: 8 56433 1 Capsule(s) PO QHS replaces 240mg dose 05/05/2017 08/03/2017 Inactive ipratropium-albuterol 0.5 mg-3 mg(2.5 mg base)/3 mL ne bulization soln RxNorm: 5494349 1 Unit Dose INH Q4H as needed 05/05/2017 01/04/2019 Inactive metformin ER 1,000 mg tablet,extended release 24hr RxNorm: 1 279044 1 Tablet(s) PO BID 04/28/2017 11/17/2017 Inactive [SAVINGS FOR NON -COVERED DRUGS -- BIN:057564, PCN: ASPROD1, Group: XXXXX, ID# [id number], Questions: . THIS IS NOT INSURANCE.] diltiazem ER (XR/XT) 240 mg capsule,extended release 2 4 hr, controlled RxNorm: 806327 TAKE ONE CAPSULE BY MOUTH EVERY DAY 04/15/2017 05/04/2017 Inact avani prednisone 20 mg tablet RxNorm: 609143 1 Tablet(s) PO QD 04/10/2017 1 06/14/2016 Inactive Breo Ellipta 200 mcg-25 mcg/dose powder for inhalation RxNor m: 2031893 1 Puff(s) INH QD 04/10/2017 02/09/2018 Inactive Breo Ellipta 200 mcg-25 mcg/dose powder for inhalation RxNor m: 9200925 1 Puff(s) INH QD 04/10/2017 04/09/2017 Inactive Levaquin 500 mg tablet RxNorm: 927444 1 Tablet(s) PO QD 04/10/2017 Inactive metoprolol succinate ER 100 mg tablet,extended release 24 hr RxNorm: 253744 TAKE ONE TABLET BY MOUTH TWICE A DAY 03/24/2017 12/18/2017 Inactive fenofibrate micronized 134 mg capsule RxNorm: 893088 1 Capsule( s) PO QD 01/16/2017 07/21/2017 Inactive Benicar HCT 40 mg-25 mg tablet RxNorm: 686802 1 Tablet(s) PO QD 11/17/2017 Inactive [SAVINGS FOR NON-COVERED JESU GS -- BIN:470406, PCN: ASPROD1, Group: XXXXX, ID# [id number], Questions: . THIS IS NOT INSURANCE.] metoprolol succinate ER 100 mg tablet,extended release 24 hr RxNorm: 108962 1 Tablet(s) PO BID 10/16/2016 03/23/2017 Inactive diltiazem ER (XR/XT) 240 mg capsule,extended release 2 4 hr, controlled RxNorm: 448624 1 Capsule(s) PO QD 10/16/2016 04/13/2017 Inactive [SAVINGS FOR NON- COVERED DRUGS -- BIN:683433, PCN: ASPROD1, Group: XXXXX, ID# [id number], Questions: . THIS IS NOT INSURANCE.] metformin ER 1,000 mg tablet,extended release 24hr RxNorm: 8 49966 1 Tablet(s) PO BID 10/16/2016 04/28/2017 Inactive [SAVINGS FOR NON -COVERED DRUGS -- BIN:182980, PCN: ASPROD1, Group: XXXXX, ID# [id number], Questions: . THIS IS NOT INSURANCE.] Zocor 40 mg tablet RxNorm: 285053 1 Tablet(s) PO QHS 10/16/201607/21 Inactive GB Singulair 10 mg tablet RxNorm: 210651 Tablet(s) 1 TABLET(S) PO QHS 08/27/2016 09/02/2018 Inactive prednisone 20 mg tablet RxNorm: 217059 1 Tablet(s) PO QD 08/27/2016 0 08/31/2016 Inactive ipratropium-albuterol 0.5 mg-3 mg(2.5 mg base)/3 mL ne bulization soln RxNorm: 3501381 1 Unit Dose INH Q4H as needed 08/27/2016 05/04/2017 Inactive metoprolol succinate ER 100 mg tablet,extended release 24 hr RxNorm: 490267 TAKE ONE TABLET BY MOUTH TWICE A DAY 08/05/2016 10/16/2016 Inactive duloxetine 60 mg capsule,delayed release RxNorm: 828239 TAKE ONE CAPSULE BY MOUTH ONCE DAILY 08/05/2016 06/24/2017 Inactive prednisone 20 mg tablet RxNorm: 967551 1 Tablet(s) PO QD 06/14/2016 0 06/18/2016 Inactive ipratropium-albuterol 0.5 mg-3 mg(2.5 mg base)/3 mL ne bulization soln RxNorm: 1121752 1 Unit Dose INH Q4H as needed 06/13/2016 08/26/2016 Inactive Levaquin 500 mg tablet RxNorm: 248477 1 Tablet(s) PO QD 06/13/2016 Inactive metoprolol succinate ER 100 mg tablet,extended release 24 hr RxNorm: 343790 1 Tablet(s) PO BID replaces 50mg dose 05/14/2016 07/12/2016 Inactive metoprolol succinate ER 50 mg tablet,extended release 24 hr RxNorm: 946187 1 Tablet(s) PO BID 04/29/2016 05/13/2016 Inactive prednisone 20 mg tablet RxNorm: 086775 1 Tablet(s) PO BID 04/22/2016 04/21/2016 Inactive prednisone 20 mg tablet RxNorm: 654110 1 Tablet(s) PO BID 04/22/2016 04/28/2016 Inactive Singulair 10 mg tablet RxNorm: 145086 Tablet(s) 1 TABLET(S) PO QHS 04/01/2016 08/26/2016 Inactive metoprolol succinate ER 25 mg tablet,extended release 24 hr RxNorm: 379422 1 Tablet(s) PO QHS for blood pressure 04/01/2016 05/13/2016 Inactive fenofibrate micronized 134 mg capsule RxNorm: 726858 TA KE ONE CAPSULE BY MOUTH DAILY 01/25/2016 01/16/2017 Inactive duloxetine 60 mg capsule,delayed release RxNorm: 870538 TAKE ONE CAPSULE BY MOUTH ONCE DAILY 01/25/2016 08/04/2016 Inactive Zocor 40 mg tablet RxNorm: 498206 TAKE ONE TABLET BY MOUTH AT B EDTIME 11/13/2015 10/16/2016 Inactive GB metformin ER 1,000 mg tablet,extended release 24hr RxNorm: 8 94080 1 Tablet(s) PO BID 10/26/2015 10/16/2016 Inactive [SAVINGS FOR NON -COVERED DRUGS -- BIN:698548, PCN: ASPROD1, Group: XXXXX, ID# [id number], Questions: . THIS IS NOT INSURANCE.] Benicar HCT 40 mg-25 mg tablet RxNorm: 704129 1 Tablet(s) PO QD 06/201511/11/2016 Inactive [SAVINGS FOR NON-COVERED JESU GS -- BIN:938290, PCN: ASPROD1, Group: XXXXX, ID# [id number], Questions: . THIS IS NOT INSURANCE.] diltiazem ER (XR/XT) 240 mg capsule,extended release,control led RxNorm: 504372 1 Capsule(s) PO QD 10/26/2015 10/15/2016 Inactive [SAVINGS FOR NO N-COVERED DRUGS -- BIN:261796, PCN: ASPROD1, Group: XXXXX, ID# [id number], Questions: . THIS IS NOT INSURANCE.] Singulair 10 mg tablet RxNorm: 953571 1 TABLET(S) PO QHS 09/18/2015 1 05/31/2015 Inactive Viagra 100 mg tablet RxNorm: 558921 1 Tablet(s) PO as needed 201511/23/2018 Inactive Singulair 10 mg tablet RxNorm: 076213 1 Tablet(s) PO QHS 08/16/2015 0 08/15/2015 Inactive Singulair 10 mg tablet RxNorm: 297071 1 Tablet(s) PO QHS 08/16/2015 0 09/14/2015 Inactive duloxetine 60 mg capsule,delayed release RxNorm: 358846 1 Capsule(s) PO QD replaces fluoxetine 08/14/2015 01/24/2016 Inactive ipratropium-albuterol 0.5 mg-3 mg(2.5 mg base)/3 mL ne bulization soln RxNorm: 7220503 1 Unit Dose INH Q4H as needed 08/14/2015 06/12/2016 Inactive prednisone 20 mg tablet RxNorm: 160136 Take 3 tabs PO o nce daily x 3 days, then 2 tabs PO once daily x 3 days and then 1 tab PO once daily x 3 days 08/09/2015 08/13/2015 Inactive Symbicort 160 mcg-4.5 mcg/actuation HFA aerosol inhaler RxNo rm: 4348449 2 Puff(s) INH BID 08/09/2015 08/13/2015 Inactive Zocor 40 mg tablet RxNorm: 691518 1 Tablet(s) PO QHS 05/23/201511/11 Inactive [AttnRPh: Saving apply/adjudicate RxGRP: SG20 RxBIN:[id number] RxPCN: ID#:[id number]] Benicar HCT 40 mg-25 mg tablet RxNorm: 176465 1 Tablet(s) PO QD 10/26/2015 Inactive [SAVINGS FOR NON-COVERED JESU GS -- BIN:689336, PCN: ASPROD1, Group: XXXXX, ID# [id number], Questions: . THIS IS NOT INSURANCE.] diltiazem ER (XR/XT) 240 mg capsule,extended release,control led RxNorm: 199358 1 Capsule(s) PO QD 04/24/2015 10/20/2015 Inactive [SAVINGS FOR NO N-COVERED DRUGS -- BIN:526428, PCN: ASPROD1, Group: XXXXX, ID# [id number], Questions: . THIS IS NOT INSURANCE.] fluoxetine 40 mg capsule RxNorm: 371200 1 Capsule(s) PO QD 04/24/20 15 08/13/2015 Inactive [SAVINGS FOR NON-COVERED JESU GS -- BIN:790611, PCN: ASPROD1, Group: XXXXX, ID# [id number], Questions: . THIS IS NOT INSURANCE.] Zocor 40 mg tablet RxNorm: 961966 TABLET(S) 1 TABLET(S) PO QHS 01/2505/23/2015 Inactive [AttnRPh: Saving apply/adjud icate RxGRP:SG20 RxBIN:[id number] RxPCN: ID#:[id number]] metformin ER 1,000 mg tablet,extended release 24hr RxNorm: 8 02190 1 TABLET(S) PO BID 01/29/2015 10/26/2015 Inactive [SAVINGS FOR NON -COVERED DRUGS -- BIN:435356, PCN: ASPROD1, Group: XXXXX, ID# [id number], Questions: . THIS IS NOT INSURANCE.] fenofibrate micronized 134 mg capsule RxNorm: 442250 1 CAPSULE( S) PO QD 01/23/2015 01/17/2016 Inactive fenofibrate micronized 134 mg capsule RxNorm: 173429 1 Capsule( s) PO QD 11/07/2014 01/22/2015 Inactive diltiazem ER (XR/XT) 240 mg capsule,extended release,control led RxNorm: 474626 1 Capsule(s) PO QD 10/24/2014 04/24/2015 Inactive [SAVINGS FOR NO N-COVERED DRUGS -- BIN:552952, PCN: ASPROD1, Group: XXXXX, ID# [id number], Questions: . THIS IS NOT INSURANCE.] Benicar HCT 40 mg-25 mg tablet RxNorm: 168949 1 Tablet(s) PO QD 05/201404/24/2015 Inactive [SAVINGS FOR NON-COVERED JESU GS -- BIN:273392, PCN: ASPROD1, Group: XXXXX, ID# [id number], Questions: . THIS IS NOT INSURANCE.] fluoxetine 40 mg capsule RxNorm: 449778 1 Capsule(s) PO QD 10/25/19 15 04/24/2015 Inactive [SAVINGS FOR NON-COVERED JESU GS -- BIN:893777, PCN: ASPROD1, Group: XXXXX, ID# [id number], Questions: . THIS IS NOT INSURANCE.] azithromycin 500 mg tablet RxNorm: 333125 1 Tablet(s) PO QD 015 09/27/2014 Inactive [SAVINGS FOR NON-COVERED JESU GS -- BIN:760543, PCN: ASPROD1, Group: XXXXX, ID# [id number], Questions: . THIS IS NOT INSURANCE.] albuterol sulfate 2.5 mg/3 mL (0.083 %) solution for n ebulization RxNorm: 556755 3 Milliliter(s) INH ONE VIAL VIA NEBULIZER EVERY 4 HOURS 015 11/19/2014 Inactive [AttnRPh: Saving apply/adjudicate RxGRP: SG20 RxBIN:[id number] RxPCN:HT ID#:[id number]] Zocor 40 mg tablet RxNorm: 178779 TABLET(S) 1 TABLET(S ) PO QHS 1 TABLET(S) PO QHS 09/04/2014 02/21/2015 Inactive [AttnRPh: Saving apply/adjudicate RxGRP:SG20 RxBIN:[id number] RxPCN:HT ID#:[id number]] metformin ER 1,000 mg tablet,extended release 24hr RxNorm: 8 16434 1 Tablet(s) PO BID 08/04/2014 01/28/2015 Inactive [SAVINGS FOR NON -COVERED DRUGS -- BIN:826519, PCN: ASPROD1, Group: XXXXX, ID# XXXXXXX, Questions: . THIS IS NOT INSURANCE.] Bromfed DM 2 mg-30 mg-10 mg/5 mL syrup RxNorm: 2172116 1 -2 Teaspoon(s) PO Q4H as needed for cough 06/10/2014 06/19/2014 Inactive [SAVINGS FOR UN INSURED PATIENTS -- BIN:836703, PCN: ASPROD1, Group: AME08, ID# [id number], Process claim through [employer], for questions: . THIS IS NOT INSURANCE.] Augmentin 875 mg-125 mg tablet RxNorm: 564018 1 Tablet(s) PO Q12H 0 06/10/2014 06/19/2014 Inactive [AttnRPh: Saving apply/adjud icate RxGRP:SG20 RxBIN:[id number] RxPCN: ID#:[id number]] Zocor 40 mg tablet RxNorm: 643152 Tablet(s) 1 TABLET(S ) PO QHS 1 TABLET(S) PO QHS 05/25/2014 08/22/2014 Inactive [AttnRPh: Saving apply/adjudicate RxGRP:SG20 RxBIN:[id number] RxPCN:HT ID#:[id number]] fluoxetine 40 mg capsule RxNorm: 114062 1 Capsule(s) PO QD 04/29/20 14 10/24/2014 Inactive [AttnRPh: Saving apply/adjud icate RxGRP:SG20 RxBIN:[id number] RxPCN:HT ID#:[id number]] diltiazem ER (XR/XT) 240 mg capsule,extended release,control led RxNorm: 723394 1 Capsule(s) PO QD 04/29/2014 10/24/2014 Inactive [AttnRPh: Savin g apply/adjudicate RxGRP:SG20 RxBIN:[id number] RxPCN:HT ID#:[id number]] Benicar HCT 40 mg-25 mg tablet RxNorm: 069653 1 Tablet(s) PO QD 09/201310/24/2014 Inactive [AttnRPh: Saving apply/adjud icate RxGRP:SG20 RxBIN:[id number] RxPCN:HT ID#:[id number]] Zocor 40 mg tablet RxNorm: 120223 1 TABLET(S) PO QHS 1 TABLET(S ) PO QHS 03/07/2014 05/25/2014 Inactive [AttnRPh: Saving chelsie ly/adjudicate RxGRP:SG20 RxBIN:[id number] RxPCN:HT ID#:[id number]] Zocor 40 mg tablet RxNorm: 947106 1 Tablet(s) PO QHS 1 TABLET(S ) PO QHS 12/06/2013 03/05/2014 Inactive [AttnRPh: Saving chelsie ly/adjudicate RxGRP:SG20 RxBIN:[id number] RxPCN:HT ID#:[id number]] diltiazem ER (XR/XT) 240 mg capsule,extended release,control led RxNorm: 824537 1 Capsule(s) PO QD 10/25/2013 04/22/2014 Inactive [AttnRPh: Leonelin g apply/adjudicate RxGRP:SG20 RxBIN:[id number] RxPCN:HT ID#:[id number]] fluoxetine 40 mg capsule RxNorm: 632034 1 Capsule(s) PO QD 10/26/19 14 04/22/2014 Inactive [AttnRPh: Saving apply/adjud icate RxGRP:SG20 RxBIN:[id number] RxPCN:HT ID#:[id number]] Zocor 40 mg tablet RxNorm: 648616 1 Tablet(s) PO QHS 1 TABLET(S ) PO QHS 09/13/2013 12/06/2013 Inactive metformin ER 1,000 mg tablet,extended release 24hr RxNorm: 8 07535 Tablet(s) PO TAKE 1 TABLET BY MOUTH TWICE DAILY (REPLACES 500MG DOSE) 07/26/201303/2015 Inactive diltiazem ER (XR/XT) 240 mg capsule,extended release,control led RxNorm: 272453 1 Capsule(s) PO QD 05/03/2013 10/25/2013 Inactive fluoxetine 40 mg capsule RxNorm: 434078 1 Capsule(s) PO QD 05/03/20 13 10/25/2013 Inactive Benicar HCT 40 mg-25 mg tablet RxNorm: 232651 1 Tablet(s) PO QD 01/201304/29/2014 Inactive Zocor 40 mg tablet RxNorm: 978825 1 Tablet(s) PO QHS 12/10/201209/13 Inactive fluoxetine 40 mg capsule RxNorm: 623383 1 Capsule(s) PO QD 11/10/19 13 05/03/2013 Inactive diltiazem ER (XR/XT) 240 mg capsule,extended release,control led RxNorm: 336439 1 Capsule(s) PO QD 11/09/2012 05/03/2013 Inactive Benicar HCT 40 mg-25 mg tablet RxNorm: 916180 1 Tablet(s) PO QD 05/03/2013 Inactive metformin ER 1,000 mg tablet,extended release 24hr RxNorm: 8 72453 Tablet(s) PO TAKE 1 TABLET BY MOUTH TWICE DAILY (REPLACES 500MG DOSE) 08/05/201206/2013 Inactive Zocor 40 mg tablet RxNorm: 438408 1 Tablet(s) PO QHS 06/15/201212/09 Inactive fluoxetine 40 mg capsule RxNorm: 109110 1 Capsule(s) PO QD 05/15/20 12 11/08/2012 Inactive Neurontin 600 mg Tab RxNorm: 280414 1 Tablet(s) PO QHS 12/03/2011 Inactive metformin ER 1,000 mg tablet,extended release 24hr RxNorm: 8 84842 1 Tablet(s) PO BID replaces 500mg dose 12/03/2011 07/26/2013 Inactive Zocor 40 mg tablet RxNorm: 671554 1 Tablet(s) PO QHS 12/03/201106/15 Inactive fluoxetine 20 mg capsule RxNorm: 680398 1 Capsule(s) PO QD 12/03/19 12 05/24/2012 Inactive diltiazem ER (XR/XT) 240 mg capsule,extended release,control led RxNorm: 322205 1 Capsule(s) PO QD 11/15/2011 11/09/2012 Inactive Benicar HCT 40 mg-25 mg tablet RxNorm: 321045 1 Tablet(s) PO QD 02/16/2012 Inactive metformin ER 500 mg 24 hr Tab RxNorm: 951539 1 Tablet(s) PO BID 12/02/2011 Inactive Zocor 40 mg Tab RxNorm: 159581 1 Tablet(s) PO QHS 05/30/2011 11/25/19 12 Inactive fluoxetine 20 mg Cap RxNorm: 798085 1 Capsule(s) PO QD 05/28/2011 Inactive Neurontin 600 mg Tab RxNorm: 731897 1 Tablet(s) PO QHS 05/28/2011 Inactive Neurontin 600 mg Tab RxNorm: 518202 1 Tablet(s) PO QHS 02/22/201106/2011 Inactive Neurontin 600 mg Tab RxNorm: 906589 1 Tablet(s) PO QHS 01/14/2011 Inactive Neurontin 300 mg Cap RxNorm: 191809 1 Capsule(s) PO QHS 01/14/2011 Inactive Neurontin 600 mg Tab RxNorm: 104027 1 Tablet(s) PO QHS 01/14/2011 Inactive Medrol (Vipul) 4 mg Tabs in a Dose Pack RxNorm: 036867 Tablet(s) PO 0 01/02/2011 08/28/2011 Inactive as directed fluoxetine 20 mg Cap RxNorm: 334861 1 Capsule(s) PO QD 12/10/201006/2011 Inactive Zocor 40 mg Tab RxNorm: 702903 1 Tablet(s) PO QHS 12/03/2010 05/29/19 12 Inactive Neurontin 300 mg Cap RxNorm: 722617 1 Capsule(s) PO QHS 12/03/2010 Inactive Septra DS 800 mg-160 mg Tab RxNorm: 764365 1 Tablet(s) PO BID 11/2912/08/2010 Inactive diltiazem ER (XR/XT) 240 mg Continuous Release Cap RxNorm: 8 91880 1 Capsule(s) PO QD 11/20/2010 11/15/2011 Inactive Neurontin 300 mg Cap RxNorm: 812413 1 Capsule(s) PO QHS 11/06/2010 Inactive Neurontin 300 mg Cap RxNorm: 862615 1 Capsule(s) PO QHS 11/06/2010 Inactive Celebrex 200 mg Cap RxNorm: 969353 1 Capsule(s) PO BID 10/24/2010 Inactive fluoxetine 20 mg Cap RxNorm: 951523 1 Capsule(s) PO QD 06/07/201003/2011 Inactive Zocor 40 mg Tab RxNorm: 213287 1 Tablet(s) PO QHS 06/05/2010 12/02/19 11 Inactive Benicar HCT 40 mg-25 mg Tab RxNorm: 871836 1 Tablet(s) PO QD 200908/21/2011 Inactive Diltiazem 240 mg Continuous Release Cap RxNorm: 350894 1 Capsul e(s) PO QD 11/09/2009 09/02/2018 Inactive Avelox 400 mg Tab RxNorm: 573497 1 Tablet(s) PO QD 08/22/2009 010 Inactive ProAir HFA 90 mcg/actuation aerosol inhaler RxNorm: 297534 2 Puff(s) INH Q4H as needed No Start Date Active tramadol 50 mg tablet RxNorm: 055684 1-2 Tablet(s) PO TID as ne eded for pain No Start Date Active Tylenol Arthritis 650 mg Tab RxNorm: 6174131 2 Tablet(s) PO QD No Sta rt Date Active Celebrex 200 mg Cap RxNorm: 632907 1 Capsule(s) PO BID No Start Date 08/08/2015 Inactive Medrol (Vipul) 4 mg Tabs in a Dose Pack RxNorm: 492248 Tablet(s) PO N o Start Date 01/01/2011 Inactive as directed Promethazine-DM 6.25 mg-15 mg/5 mL Syrup RxNorm: 205936 1-2 Teaspoon(s) PO Q4H prn cough No Start Date 08/28/2011 Inactive Claritin 10 mg tablet RxNorm: 726090 1 Tablet(s) PO QD No Start Date 08/08/2015 Inactive Kxfrcjbpvm-Qwwbu-VKV-James-115HC Oral RxNorm: Oral No Start Da te 03/28/2019 Inactive Breo Ellipta 200 mcg-25 mcg/dose powder for inhalation RxNor m: 6019237 1 Puff(s) INH QD No Start Date 04/09/2017 Inactive metformin 500 mg Tab RxNorm: 185076 1 Tablet(s) PO QD No Start Date 0 08/17/2011 Inactive Diltiazem 240 mg Continuous Release Cap RxNorm: 215447 1 Capsul e(s) PO BID No Start Date 11/08/2009 Inactive fluoxetine 20 mg Cap RxNorm: 258127 1 Capsule(s) PO QD No Start Date 06/07/2010 Inactive Multivitamin & Mineral Formula Oral RxNorm: Oral No Start Da te 03/28/2019 Inactive Medrol (Vipul) 4 mg tablets in a dose pack RxNorm: 820010 Tablet(s) PO as directed No Start Date 05/28/2012 Inactive Fish Oil 1,000 mg Cap RxNorm: 1 Capsule(s) PO QD No Start Date 07/2018 Inactive Nexium 40 mg Cap RxNorm: 186177 1 Capsule(s) PO QD No Start Date 07/24 Inactive fluticasone 50 mcg/actuation nasal spray,suspension RxNorm: 9723051 2 [place] NASAL QD to each nostril No Start Date 08/03/2017 Inactive Viagra 100 mg tablet RxNorm: 878695 1 Tablet(s) PO as needed No Sta rt Date 09/17/2015 Inactive prednisone 20 mg tablet RxNorm: 190118 1 Tablet(s) PO B ID for 4 days then 1 po daily for 4 days No Start Date 11/23/2018 Inactive Benicar HCT 40 mg-25 mg Tab RxNorm: 715672 1 Tablet(s) PO QD No Sta rt [...] Date S ervice Location MICROALBUMIN URINE RANDOM 02713 MICRL MG/L 5.8 MG/L 03/2011 Unknown MICROALBUMIN URINE RANDOM 80828 XM.ALB/CRE 5.2 MG/GCR Unknown MICROALBUMIN URINE RANDOM 37338 CREAT MG/D 111 MG/DL 03/2011 Unknown MICROALBUMIN URINE RANDOM 45141 CRE/100 1.11 G/L 12/24 Unknown Procedures Procedure Codes Date FLU VACC PRSV FREE INC ANTIG 65 AND OLDER CPT-4: 06576 03/04/2019 ADMIN PNEUMOCOCCAL VACCINE CPT-4: G0009 03/04/2019 ADMIN INFLUENZA VIRUS VAC CPT-4: G0008 03/04/2019 FLU VACC PRSV FREE INC ANTIG 65 AND OLDER CPT-4: 87978 03/04/2019 PNEUMOCOCCAL VACC 23 RAYMON IM CPT-4: 61257 03/04/2019 THER/PROPH/DIAG INJ SC/IM CPT-4: 69060 08/11/2018 TRIAMCINOLONE ACET INJ NOS CPT-4: J3301 08/11/2018 DEXAMETHASONE SODIUM PHOS CPT-4: J1100 08/11/2018 THER/PROPH/DIAG INJ SC/IM CPT-4: 38917 07/16/2018 METHYLPREDNISOLONE INJECTION CPT-4: J2930 07/16/2018 INFLUENZA ASSAY W/OPTIC CPT-4: 41102 07/16/2018 THER/PROPH/DIAG INJ SC/IM CPT-4: 14710 07/13/2018 TRIAMCINOLONE ACET INJ NOS CPT-4: J3301 07/13/2018 THER/PROPH/DIAG INJ SC/IM CPT-4: 59404 05/04/2018 METHYLPREDNISOLONE INJECTION CPT-4: J2930 05/04/2018 FLU VACC PRSV FREE INC ANTIG 65 AND OLDER CPT-4: 63044 02/10/2018 PNEUMOCOCCAL VACC 13 RAYMON IM CPT-4: 81376 02/10/2018 ADMIN INFLUENZA VIRUS VAC CPT-4: G0008 02/10/2018 ADMIN PNEUMOCOCCAL VACCINE CPT-4: G0009 02/10/2018 THER/PROPH/DIAG INJ SC/IM CPT-4: 76895 09/09/2017 TRIAMCINOLONE ACET INJ NOS CPT-4: J3301 09/09/2017 ALBUTEROL NON-COMP UNIT CPT-4: J7613 04/10/2017 AIRWAY INHALATION TREATMENT CPT-4: 00562 04/10/2017 PRESCRIP TRANSMIT VIA ERX SY CPT-4: G8553 04/10/2017 FLU VACC PRSV FREE INC ANTIG 65 AND OLDER CPT-4: 88346 03/28/2017 ADMIN INFLUENZA VIRUS VAC CPT-4: G0008 03/28/2017 PRESCRIP TRANSMIT VIA ERX SY CPT-4: G8553 08/27/2016 PRESCRIP TRANSMIT VIA ERX SY CPT-4: G8553 06/14/2016 ALBUTEROL NON-COMP UNIT CPT-4: J7613 06/13/2016 AIRWAY INHALATION TREATMENT CPT-4: 01338 06/13/2016 PRESCRIP TRANSMIT VIA ERX SY CPT-4: [...] CPT-4: G8553 11/07/2014 THER/PROPH/DIAG INJ SC/IM CPT-4: 47820 09/21/2014 METHYLPREDNISOLONE INJECTION CPT-4: J2930 09/21/2014 PRESCRIP TRANSMIT VIA ERX SY CPT-4: G8553 09/21/2014 PRESCRIP TRANSMIT VIA ERX SY CPT-4: G8553 06/10/2014 URINALYSIS NONAUTO W/O SCOPE CPT-4: 17119 06/01/2012 PRESCRIP TRANSMIT VIA ERX SY CPT-4: G8553 05/25/2012 PRESCRIP TRANSMIT VIA ERX SY CPT-4: G8553 12/03/2011 CUR TOBACCO NON-USER CPT-4: G8457 05/30/2011 PRESCRIP TRANSMIT VIA ERX SY CPT-4: G8553 05/30/2011 URINALYSIS NONAUTO W/O SCOPE CPT-4: 09760 01/01/2011 URINE CULTURE/ COLONY COUNT CPT-4: 49434 01/01/2011 CUR TOBACCO NON-USER CPT-4: G8457 01/01/2011 [...] 1: 114/68 Code: 8480-6 BMI: 43.5 Code: 18276-1 Heart Rate 1: 52 bpm Height: 6'1" [...] 1: 136/72 Code: 8480-6 BMI: 42.7 Code: 27907-1 Heart Rate 1: 60 bpm Height: 6'1" Respiratory Rate: 22 bpm SpO2: 95% Tempera ture: 37.1 (C) / 98.7 (F) Weight: 324 lbs 02/10/2018 Blood Pressure 1: 146/78 Code: 8480-6 BMI: 42.4 Code: 67452-7 Heart Rate 1: 64 bpm Height: 6'1" Respiratory Rate: 22 bpm SpO2: 95% Tempera ture: 36.5 (C) / 97.7 (F) Weight: 321 lbs 11/05/2017 Blood Pressure 1: 128/84 Code: 8480-6 BMI: 42.9 Code: 62873-7 Heart Rate 1: 52 bpm Height: 6'1" Respiratory Rate: 22 bpm SpO2: 95% Tempera ture: 36.3 (C) / 97.3 (F) Weight: 325 lbs 09/09/2017 Blood Pressure 1: 162/90 Code: 8480-6 BMI: 42.5 Code: 90024-2 Heart Rate 1: 60 bpm Height: 6'1" Respiratory Rate: 24 bpm SpO2: 95% Tempera ture: 36.4 (C) / 97.6 (F) Weight: 322 lbs 08/07/2017 Blood Pressure 1: 152/90 Code: 8480-6 BMI: 42.2 Code: 49437-7 Heart Rate 1: 60 bpm Height: 6'1" Respiratory Rate: 26 bpm SpO2: 94% Tempera ture: 36.6 (C) / 97.8 (F) Weight: 320 lbs 08/04/2017 Blood Pressure 1: 150/86 Code: 8480-6 BMI: 42.7 Code: 08364-5 Heart Rate 1: 64 bpm Height: 6'1" Respiratory Rate: 20 bpm SpO2: 94% Tempera ture: 36.3 (C) / 97.3 (F) Weight: 324 lbs 06/04/2017 Blood Pressure 1: 164/90 Code: 8480-6 Heart Rate 1: 60 bpm Respiratory Rate: 24 bpm SpO2: 94% Temperature: 36.8 (C) / 98.3 (F) 06/02/2017 Blood Pressure 1: 162/80 Code: 8480-6 BMI: 42.9 Code: 05756-1 Heart Rate 1: 66 bpm Height: 6'1" Respiratory Rate: 22 bpm SpO2: 98% Tempera ture: 36.6 (C) / 97.8 (F) Weight: 325 lbs 05/05/2017 Blood Pressure 1: 164/94 Code: 8480-6 BMI: 41.4 Code: 17905-7 Heart Rate 1: 64 bpm Height: 6'1" Respiratory Rate: 22 bpm SpO2: 95% Tempera ture: 36.4 (C) / 97.5 (F) Weight: 314 lbs 04/10/2017 Blood Pressure 1: 136/78 Code: 8480-6 BMI: 42.0 Code: 18354-9 Heart Rate 1: 76 bpm Height: 6'1" Respiratory Rate: 24 bpm SpO2: 92% Tempera ture: 35.9 (C) / 96.7 (F) Weight: 318 lbs 02/03/2017 Blood Pressure 1: 134/82 Code: 8480-6 BMI: 41.7 Code: 45474-5 Heart Rate 1: 72 bpm Height: 6'1" Respiratory Rate: 24 bpm SpO2: 95% Tempera ture: 36.1 (C) / 97.0 (F) Weight: 316 lbs 10/30/2016 Blood Pressure 1: 126/74 Code: 8480-6 BMI: 41.3 Code: 92418-2 Heart Rate 1: 68 bpm Height: 6'1" Respiratory Rate: 20 bpm Temperature: 37 .1 (C) / 98.8 (F) Weight: 313 lbs 08/30/2016 Blood Pressure 1: 146/80 Code: 8480-6 BMI: 41.7 Code: 47621-6 Heart Rate 1: 64 bpm Height: 6'1" Respiratory Rate: 24 bpm SpO2: 94% Tempera ture: 36.6 (C) / 97.8 (F) Weight: 316 lbs 08/27/2016 Blood Pressure 1: 124 Code: 8480-6 Heart Rate 1: 66 bpm Height: 6'2" Respiratory Rate: 18 bpm SpO2: 94% Temperature: 36.6 (C) / 97.8 (F) Weight: 07/02/2016 Blood Pressure 1: 12678 Code: 8480-6 BMI: 41.4 Code: 99444-1 Heart Rate 1: 68 bpm Height: 6'1" Respiratory Rate: 24 bpm SpO2: 94% Tempera ture: 36.6 (C) / 97.8 (F) Weight: 314 lbs 06/14/2016 Blood Pressure 1: 146 Code: 8480-6 Heart Rate 1: 80 bpm Respiratory Rate: 20 bpm SpO2: 95% Temperature: 37.3 (C) / 99.2 (F) 06/13/2016 Blood Pressure 1: 146/84 Code: 8480-6 BMI: 40.5 Code: 55439-9 Heart Rate 1: 66 bpm Height: 6'1" Respiratory Rate: 28 bpm SpO2: 93% Tempera ture: 35.8 (C) / 96.4 (F) Weight: 307 lbs 05/14/2016 Blood Pressure 1: 146/90 Code: 8480-6 BMI: 41.2 Code: 09495-3 Heart Rate 1: 68 bpm Height: 6'1" Respiratory Rate: 26 bpm Temperature: 36 .8 (C) / 98.2 (F) Weight: 312 lbs 04/29/2016 Blood Pressure 1: 152/90 Code: 8480-6 BMI: 41.0 Code: 79820-6 Heart Rate 1: 68 bpm Height: 6'1" Respiratory Rate: 26 bpm SpO2: 94% Tempera ture: 36.1 (C) / 96.9 (F) Weight: 311 lbs 04/22/2016 Blood Pressure 1: 152/94 Code: 8480-6 BMI: 40.9 Code: 12895-1 Heart Rate 1: 68 bpm Height: 6'1" Respiratory Rate: 24 bpm SpO2: 94% Tempera ture: 36.2 (C) / 97.2 (F) Weight: 310 lbs 04/01/2016 Blood Pressure 1: 156/78 Code: 8480-6 BMI: 40.6 Code: 92887-0 Heart Rate 1: 84 bpm Height: 6'1" Respiratory Rate: 22 bpm SpO2: 95% Tempera ture: 37.1 (C) / 98.7 (F) Weight: 308 lbs 11/30/2015 Blood Pressure 1: 142/80 Code: 8480-6 BMI: 40.5 Code: 33126-1 Heart Rate 1: 88 bpm Height: 6'1" Respiratory Rate: 22 bpm Temperature: 36 .2 (C) / 97.2 (F) Weight: 307 lbs 08/29/2015 Blood Pressure 1: 132/70 Code: 8480-6 BMI: 40.0 Code: 58109-0 Heart Rate 1: 76 bpm Height: 6'1" Respiratory Rate: 24 bpm SpO2: 96% Tempera ture: 36.7 (C) / 98.0 (F) Weight: 303 lbs 08/14/2015 Blood Pressure 1: 126/80 Code: 8480-6 BMI: 39.4 Code: 62211-4 Heart Rate 1: 92 bpm Height: 6'1" Respiratory Rate: 24 bpm SpO2: 94% Tempera ture: 37.8 (C) / 100.0 (F) Weight: 299 lbs 08/09/2015 Blood Pressure 1: 146/82 Code: 8480-6 Heart Rate 1: 82 bpm Respiratory Rate: 22 bpm SpO2: 93% Temperature: 35.9 (C) / 96.6 (F) We ight: 310 lbs 05/22/2015 Blood Pressure 1: 156/76 Code: 8480-6 BMI: 41.0 Code: 57859-0 Heart Rate 1: 100 bpm Height: 6'1" Respiratory Rate: 22 bpm Temperature: 37 .2 (C) / 98.9 (F) Weight: 311 lbs 02/13/2015 Blood Pressure 1: 166/90 Code: 8480-6 BMI: 41.2 Code: 49325-7 Heart Rate 1: 72 bpm Height: 6'1" Respiratory Rate: 24 bpm SpO2: 93% Tempera ture: 36.9 (C) / 98.5 (F) Weight: 312 lbs 11/07/2014 Blood Pressure 1: 134/70 Code: 8480-6 BMI: 40.5 Code: 47213-6 Heart Rate 1: 76 bpm Height: 6'1" Respiratory Rate: 24 bpm Temperature: 36 .9 (C) / 98.4 (F) Weight: 307 lbs 10/04/2014 Blood Pressure 1: 144/86 Code: 8480-6 BMI: 40.1 Code: 54093-7 Heart Rate 1: 76 bpm Height: 6'1" Respiratory Rate: 28 bpm Temperature: 36 .6 (C) / 97.9 (F) Weight: 304 lbs 09/22/2014 Blood Pressure 1: 142/80 Code: 8480-6 BMI: 40.0 Code: 79564-8 Heart Rate 1: 80 bpm Height: 6'1" Respiratory Rate: 22 bpm SpO2: 96% Tempera ture: 36.6 (C) / 97.8 (F) Weight: 303 lbs 09/21/2014 Blood Pressure 1: 160/66 Code: 8480-6 BMI: 40.0 Code: 80746-6 Heart Rate 1: 90 bpm Height: 6'1" Respiratory Rate: 26 bpm SpO2: 94% Tempera ture: 35.7 (C) / 96.2 (F) Weight: 303 lbs 06/28/2014 Blood Pressure 1: 132/80 Code: 8480-6 BMI: 41.0 Code: 66676-1 Heart Rate 1: 64 bpm Height: 6' Respiratory Rate: 20 bpm Temperature: 36 .7 (C) / 98.0 (F) Weight: 302 lbs 06/10/2014 Blood Pressure 1: 152/70 Code: 8480-6 BMI: 41.1 Code: 90906-8 Heart Rate 1: 76 bpm Height: 6' Respiratory Rate: 20 bpm Temperature: 36 .6 (C) / 97.8 (F) Weight: 303 lbs 03/29/2014 Blood Pressure 1: 132/78 Code: 8480-6 BMI: 40.6 Code: 64718-2 Heart Rate 1: 84 bpm Height: 6' Respiratory Rate: 22 bpm Temperature: 37 .1 (C) / 98.8 (F) Weight: 299 lbs 11/30/2013 Blood Pressure 1: 136/84 Code: 8480-6 BMI: 39.2 Code: 72527-7 Heart Rate 1: 76 bpm Height: 6' Respiratory Rate: 20 bpm Temperature: 36 .8 (C) / 98.2 (F) Weight: 289 lbs 08/03/2013 Blood Pressure 1: 144/80 Code: 8480-6 Heart Rate 1: 86 bpm Respiratory Rate: 20 bpm Temperature: 36.6 (C) / 97.8 (F) Weight: 296 lbs 04/06/2013 Blood Pressure 1: 142/90 Code: 8480-6 BMI: 40.3 Code: 38340-1 Heart Rate 1: 88 bpm Height: 6' Respiratory Rate: 20 bpm Temperature: 36 .6 (C) / 97.8 (F) Weight: 297 lbs 12/01/2012 Blood Pressure 1: 124/78 Code: 8480-6 BMI: 38.7 Code: 39694-1 Heart Rate 1: 76 bpm Height: 6' Respiratory Rate: 20 bpm Temperature: 37 .2 (C) / 98.9 (F) Weight: 285 lbs 08/04/2012 Blood Pressure 1: 128/80 Code: 8480-6 BMI: 38.2 Code: 08137-8 Heart Rate 1: 76 bpm Height: 6' Respiratory Rate: 20 bpm Temperature: 37 .0 (C) / 98.6 (F) Weight: 282 lbs 05/29/2012 Blood Pressure 1: 138/78 Code: 8480-6 BMI: 36.6 Code: 47382-7 Heart Rate 1: 66 bpm Height: 6' Temperature: 36.7 (C) / 98.1 (F) Weight: 270 lbs 05/25/2012 Blood Pressure 1: 128/72 Code: 8480-6 BMI: 39.9 Code: 29641-4 Heart Rate 1: 74 bpm Height: 6' Temperature: 36.1 (C) / 97.0 (F) Weight: 294 lbs 04/07/2012 Blood Pressure 1: 124/76 Code: 8480-6 BMI: 39.9 Code: 83594-2 Heart Rate 1: 72 bpm Height: 6' Respiratory Rate: 20 bpm Temperature: 36 .9 (C) / 98.5 (F) Weight: 294 lbs 12/16/2011 Blood Pressure 1: 128/80 Code: 8480-6 BMI: 40.8 Code: 62311-8 Heart Rate 1: 74 bpm Height: 6' Temperature: 36.6 (C) / 97.8 (F) Weight: 301 lbs 12/03/2011 Blood Pressure 1: 132/76 Code: 8480-6 BMI: 40.8 Code: 22928-8 Heart Rate 1: 68 bpm Height: 6' Respiratory Rate: 20 bpm Temperature: 36 .8 (C) / 98.2 (F) Weight: 301 lbs 08/29/2011 Blood Pressure 1: 140/68 Code: 8480-6 BMI: 40.8 Code: 29869-6 Heart Rate 1: 80 bpm Height: 6' Respiratory Rate: 20 bpm Temperature: 36 .4 (C) / 97.6 (F) Weight: 301 lbs 05/30/2011 Blood Pressure 1: 134/82 Code: 8480-6 BMI: 41.5 Code: 40439-8 Heart Rate 1: 76 bpm Height: 6' [...] 1: 126/72 Code: 8480-6 BMI: 41.2 Code: 56338-0 Heart Rate 1: 76 bpm Height: 6' [...] 1: 152/90 Code: 8480-6 BMI: 37.7 Code: 84842-0 Heart Rate 1: 92 bpm Height: 6'1" [...] pulmonary disease with (acute) exacerbation[ICD10: J44.1] Neela YHMAN [employer] CPT- 4: 12112 08/10/2019 ([id number]) OFFICE/OUTPATIENT VISIT EST Diagnosis: Sore on toe[ICD10: L98.9] Neela VASQUEZ [employer] CPT-4: 14937 07/06/2019 ([id number]) OFFICE/OUTPATIENT VISIT EST Diagnosis: Advanced chronic obstructive pulmonary disease[ICD10: J44.9] 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] Neela ZHANGER [employer] CPT-4: 40983 05/10/2019 ([id number]) OFFICE/OUTPATIENT VISIT EST Diagnosis: Chronic obstructive pulmonary disease with (acute) exacerbation[ICD10: J44.1] Diagnosis: Hypokalemia[ICD10: E87.6] 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] Neela HYMAN DO [facility] CPT-4: 57628 03/29/2019 ([id number]) NURSE/OUTPATIENT VISIT EST Diagnosis: PNEUMOCOCCAL VACCINE[ICD10: Z23] Neela HYAMN DO [facility] CPT-4: 22337 03/04/2019 ([id number]) OFFICE/OUTPATIENT VISIT EST Diagnosis: Chronic obstructive pulmonary disease with (acute) exacerbation[ICD10: J44.1] Diagnosis: Other nonspecific abnormal finding of lung field[ICD10: R91.8] Neela HYMAN DO [facility] CPT-4: 26096 01/05/2019 ([id number]) OFFICE/OUTPATIENT VISIT EST Diagnosis: Solitary pulmonary nodule[ICD10: R91.1] 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] Diagnosis: Tinea corporis[ICD10: B35.4] Neela HYMAN DO [facility] CPT-4: 03355 12/09/2018 ([id number]) OFFICE/OUTPATIENT VISIT EST Diagnosis: COUGH[ICD10: R05] Diagnosis: Chronic obstructive pulmonary disease, unspecified[ICD10: J44.9] Diagnosis: Other disorders of lung[ICD10: J98.4] Diagnosis: Other nonspecific abnormal finding of lung field[ICD10: R91.8] Neela HYMAN DO [facility] CPT-4: 01313 11/24/2018 ([id number]) OFFICE/OUTPATIENT VISIT EST Diagnosis: Pneumonia, unspecified organism[ICD10: J18.9] Amita Henderson NEELA HYMAN DO [facility] CPT-4: 70891 09/16/2018 ([id number]) OFFICE/OUTPATIENT VISIT EST Diagnosis: Pneumonia, unspecified organism[ICD10: J18.9] Neela HYMAN DO [facility] CPT-4: 16870 09/03/2018 ([id number]) OFFICE/OUTPATIENT VISIT EST Diagnosis: Personal history of pneumonia (recurrent)[ICD10: Z87.01] Diagnosis: Cough[ICD10: R05] Diagnosis: Essential (primary) hypertension[ICD10: I10] Diagnosis: Type 2 diabetes mellitus with hyperglycemia[ICD10: E11.65] Amitacalvin MIRZALINE [employer] [facility] CPT-4: 73739 08/27/2018 OFFICE/OUTPATIENT VISIT EST Diagnosis: Pneumonia, unspecified organism[ICD10: J18.9] Diagnosis: Chronic obstructive pulmonary disease with (acute) exacerbation[ICD10: J44.1] Diagnosis: Other specified symptoms and signs involving the circulatory and respiratory systems[ICD10: R09.89] Diagnosis: Essential (primary) hypertension[ICD10: I10] Amita Santiago MIRZALINE [employer] [facility] CPT-4: 96228 08/13/2018 OFFICE/OUTPATIENT VISIT EST Diagnosis: Pneumonia, unspecified organism[ICD10: J18.9] Diagnosis: Other specified symptoms and signs involving the circulatory and respiratory systems[ICD10: R09.89] Amita Santiago MIRZALINE [employer] [facility] CPT-4: 31404 08/11/2018 ([id number]) OFFICE/OUTPATIENT VISIT EST Diagnosis: Dyspnea, unspecified[ICD10: R06.00] Diagnosis: Chronic obstructive pulmonary disease with (acute) exacerbation[ICD10: J44.1] Diagnosis: Pneumonia, unspecified organism[ICD10: J18.9] Amita Santiagodebbie MURILLO [employer] [facility] CPT-4: 25637 07/16/2018 ([id number]) OFFICE/OUTPATIENT VISIT EST Diagnosis: Acute bronchitis due to other specified organisms[ICD10: J20.8] Diagnosis: Cough[ICD10: R05] Amita Santiago NEELA Desigual [facility] T-4: 78906 07/13/2018 ([id number]) OFFICE/OUTPATIENT VISIT EST Diagnosis: Essential (primary) hypertension[ICD10: I10] Diagnosis: Chronic obstructive pulmonary disease, unspecified[ICD10: J44.9] Diagnosis: Type 2 diabetes mellitus with hyperglycemia[ICD10: E11.65] Diagnosis: Mixed hyperlipidemia[ICD10: E78.2] Neela HYMAN DO [facility] CPT-4: 06932 06/03/2018 ([id number]) OFFICE/OUTPATIENT VISIT EST Diagnosis: Chronic obstructive pulmonary disease, unspecified[ICD10: J44.9] Gely HYMAN DO [facility] CPT-4: 68957 05/04/2018 ([id number]) OFFICE/OUTPATIENT VISIT EST Diagnosis: Essential (primary) hypertension[ICD10: I10] Diagnosis: Localized edema[ICD10: R60.0] Neela HYMAN DO [facility] CPT-4: 83927 03/03/2018 ([id number]) OFFICE/OUTPATIENT VISIT EST Diagnosis: Localized edema[ICD10: R60.0] Neela HYMAN DO [facility] CPT-4: 07000 02/17/2018 ([id number]) OFFICE/OUTPATIENT VISIT EST Diagnosis: FLU VACCINE[ICD10: Z23] Diagnosis: PNEUMOCOCCAL VACCINE[ICD10: Z23] Diagnosis: Type 2 diabetes mellitus without complications[ICD10: E11.9] Diagnosis: Mixed hyperlipidemia[ICD10: E78.2] Diagnosis: Essential (primary) hypertension[ICD10: I10] Diagnosis: Localized edema[ICD10: R60.0] Diagnosis: Chronic obstructive pulmonary disease, unspecified[ICD10: J44.9] Neela HYMAN DO [facility] CPT-4: 16852 02/10/2018 ([id number]) OFFICE/OUTPATIENT VISIT EST Diagnosis: Type 2 diabetes mellitus with hyperglycemia[ICD10: E11.65] Diagnosis: Mixed hyperlipidemia[ICD10: E78.2] Diagnosis: Essential (primary) hypertension[ICD10: I10] Diagnosis: Chronic obstructive pulmonary disease, unspecified[ICD10: J44.9] Diagnosis: Cutaneous abscess of back [any part, except buttock][ICD10: L02.212] Neela HYMAN DO [facility] CPT-4: 25839 11/05/2017 ([id number]) OFFICE/OUTPATIENT VISIT EST Diagnosis: Allergic urticaria[ICD10: L50.0] Gely HYMAN DO [facility] CPT-4: 11762 09/09/2017 ([id number]) OFFICE/OUTPATIENT VISIT EST Diagnosis: Generalized enlarged lymph nodes[ICD10: R59.1] Diagnosis: Acute gastritis without bleeding[ICD10: K29.00] Gely HMYAN DO [facility] CPT-4: 93217 08/07/2017 ([id number]) OFFICE/OUTPATIENT VISIT EST Diagnosis: Type 2 diabetes mellitus without complications[ICD10: E11.9] Diagnosis: Mixed hyperlipidemia[ICD10: E78.2] Diagnosis: Essential (primary) hypertension[ICD10: I10] Neela HYMAN [employer] [facility] CPT-4: 48551 08/04/2017 ([id number]) OFFICE/OUTPATIENT VISIT EST Diagnosis: Zoster without complications[ICD10: B02.9] Diagnosis: Acute sialoadenitis[ICD10: K11.21] Gely HYMAN [employer] [facility] CPT-4: 26080 06/04/2017 OFFICE/OUTPATIENT VISIT EST Diagnosis: Zoster without complications[ICD10: B02.9] Diagnosis: Acute sialoadenitis[ICD10: K11.21] Gely HYMAN [employer] [facility] CPT-4: 86764 06/02/2017 ([id number]) OFFICE/OUTPATIENT VISIT EST Diagnosis: Type 2 diabetes mellitus without complications[ICD10: E11.9] Diagnosis: Mixed hyperlipidemia[ICD10: E78.2] Diagnosis: Essential (primary) hypertension[ICD10: I10] Diagnosis: Chronic obstructive pulmonary disease, unspecified[ICD10: J44.9] Neela HYMAN [employer] [facility] CPT-4: 67906 05/05/2017 OFFICE/OUTPATIENT VISIT EST Diagnosis: Chronic obstructive pulmonary disease with acute lower respiratory infection[ICD10: J44.0] Diagnosis: Impacted cerumen, bilateral[ICD10: H61.23] Gely HYMAN [employer] [facility] CPT-4: 68498 04/10/2017 ([id number]) OFFICE/OUTPATIENT VISIT EST Diagnosis: FLU VACCINE[ICD10: Z23] Neela BUI [facility] CPT-4: 95119 03/28/2017 ([id number]) OFFICE/OUTPATIENT VISIT EST Diagnosis: Type 2 diabetes mellitus without complications[ICD10: E11.9] Diagnosis: Mixed hyperlipidemia[ICD10: E78.2] Diagnosis: Essential (primary) hypertension[ICD10: I10] Diagnosis: Chronic obstructive pulmonary disease, unspecified[ICD10: J44.9] Neela HYMAN DO [facility] CPT-4: 54372 02/03/2017 ([id number]) OFFICE/OUTPATIENT VISIT EST Diagnosis: Type 2 diabetes mellitus with hyperglycemia[ICD10: E11.65] Diagnosis: Mixed hyperlipidemia[ICD10: E78.2] Diagnosis: Essential (primary) hypertension[ICD10: I10] Diagnosis: Chronic obstructive pulmonary disease, unspecified[ICD10: J44.9] Neela HYMAN DO [facility] CPT-4: 13666 10/30/2016 ([id number]) NO CHARGE Diagnosis: Acute bronchitis, unspecified[ICD10: J20.9] Sammi HYMAN [facility] CPT-4: 31010 08/30/2016 ([id number]) OFFICE/OUTPATIENT VISIT EST Diagnosis: Acute bronchitis, unspecified[ICD10: J20.9] Diagnosis: Other seasonal allergic rhinitis[ICD10: J30.2] Sammi HYMAN [employer] [facility] CPT-4: 66379 08/27/2016 ([id number]) OFFICE/OUTPATIENT VISIT EST Diagnosis: Type 2 diabetes mellitus without complications[ICD10: E11.9] Diagnosis: Mixed hyperlipidemia[ICD10: E78.2] Diagnosis: Essential (primary) hypertension[ICD10: I10] Neela HYMAN [employer] [facility] CPT-4: 86597 07/02/2016 ([id number]) OFFICE/OUTPATIENT VISIT EST Diagnosis: Acute bronchitis, unspecified[ICD10: J20.9] Sammi MIRZALINE Octavio HYMAN [facility] CPT-4: 86909 06/14/2016 ([id number]) OFFICE/OUTPATIENT VISIT EST Diagnosis: Acute bronchitis, unspecified[ICD10: J20.9] Sammi Reinaldo MIRZALINE Octavio HYMAN [facility] CPT-4: 44124 06/13/2016 ([id number]) OFFICE/OUTPATIENT VISIT EST Diagnosis: Essential (primary) hypertension[ICD10: I10] Neela HYMAN DO [facility] CPT-4: 10549 05/14/2016 ([id number]) OFFICE/OUTPATIENT VISIT EST Diagnosis: Essential (primary) hypertension[ICD10: I10] Neela HYMAN DO [facility] CPT-4: 93541 04/29/2016 ([id number]) OFFICE/OUTPATIENT VISIT EST Diagnosis: Unspecified abdominal pain[ICD10: R10.9] Diagnosis: Left lower quadrant pain[ICD10: R10.32] Diagnosis: Left upper quadrant pain[ICD10: R10.12] Diagnosis: Essential (primary) hypertension[ICD10: I10] Neela HYMAN DO [facility] CPT-4: 36732 04/22/2016 ([id number]) OFFICE/OUTPATIENT VISIT EST Diagnosis: Type 2 diabetes mellitus without complications[ICD10: E11.9] Diagnosis: Mixed hyperlipidemia[ICD10: E78.2] Diagnosis: Essential (primary) hypertension[ICD10: I10] Neela HYMAN DO [facility] CPT-4: 50346 04/01/2016 ([id number]) OFFICE/OUTPATIENT VISIT EST Diagnosis: Type 2 diabetes mellitus with hyperglycemia[ICD10: E11.65] Diagnosis: Mixed hyperlipidemia[ICD10: E78.2] Diagnosis: Essential (primary) hypertension[ICD10: I10] Neela HYMAN DO [facility] CPT-4: 63265 11/30/2015 ([id number]) OFFICE/OUTPATIENT VISIT EST Diagnosis: Type 2 diabetes mellitus with diabetic neuropathy, unspecified[ICD10: E11.40] Diagnosis: Essential (primary) hypertension[ICD10: I10] Diagnosis: Mixed hyperlipidemia[ICD10: E78.2] Neela HYMAN DO [facility] CPT-4: 65643 08/29/2015 ([id number]) OFFICE/OUTPATIENT VISIT EST Diagnosis: COUGH[ICD10: R05] Diagnosis: Wheezing[ICD10: R06.2] Diagnosis: Type 2 diabetes mellitus with diabetic neuropathy, unspecified[ICD10: E11.40] Neela MURILLO JuhiMendez CRISTIANA ARTHUR [facility] CPT-4: 10022 08/14/2015 ([id number]) OFFICE/OUTPATIENT VISIT EST Diagnosis: Other seasonal allergic rhinitis[ICD10: J30.2] Diagnosis: Dyspnea, unspecified[ICD10: R06.00] Diagnosis: Wheezing[ICD10: R06.2] Sammi Najera NEELA Cunningham CRISTIANA ARTHUR Yesenia CPT-4: 72659 08/09/2015 ([id number]) OFFICE/OUTPATIENT VISIT EST Diagnosis: Essential (primary) hypertension[ICD10: I10] Diagnosis: Type 2 diabetes mellitus with hyperglycemia[ICD10: E11.65] Diagnosis: Mixed hyperlipidemia[ICD10: E78.2] Neela STERLING JuhiMendez CRISTIANA ARTHUR [facility] CPT-4: 60608 05/22/2015 ([id number]) OFFICE/OUTPATIENT VISIT EST Diagnosis: 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] Diagnosis: - I - HYPERTENSION[ICD9: 401.9] Diagnosis: - I - HYPERLIPIDEMIA NEC/NOS[ICD9: 272.4] Diagnosis: Left hand paresthesia[ICD9: 782.0] Neela STERLING Octavio HYMAN [employer] [facility] CPT-4: 67154 02/13/2015 ([id number]) OFFICE/OUTPATIENT VISIT EST Diagnosis: HYPERLIPIDEMIA NEC/NOS[ICD9: 272.4] Diagnosis: 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] Neela MURILLO JuhiMendez CRISTIANA [employer] [facility] CPT-4: 15796 11/07/2014 ([id number]) OFFICE/OUTPATIENT VISIT EST Diagnosis: ALLERGIC RHINITIS[ICD9: 477.9] Diagnosis: WHEEZING[ICD9: 786.07] Neela MURILLO JuhiMendez NURISMANOLO Gerald [employer] [facility] CPT-4: 11358 10/04/2014 ([id number]) OFFICE/OUTPATIENT VISIT EST Diagnosis: BRONCHITIS, ACUTE[ICD9: 466.0] Diagnosis: WHEEZING[ICD9: 786.07] Loren Cunningham NURISMANOLO Gerald [employer] CPT-4: 82707 09/22/2014 ([id number]) OFFICE/OUTPATIENT VISIT EST Diagnosis: DYSPNEA[ICD9: 786.09] Diagnosis: WHEEZING[ICD9: 786.07] Diagnosis: Arrhythmia[ICD9: 427.9] Loren ANNQUELINE JuhiMendez [facility] CPT-4: 57935 09/21/2014 ([id number]) OFFICE/OUTPATIENT VISIT EST Diagnosis: DM W/O COMPLICATION TYPE II, 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] Diagnosis: - I - HYPERLIPIDEMIA NEC/NOS[ICD9: 272.4] Diagnosis: - I - HYPERTENSION[ICD9: 401.9] Neela MURILLO [facility]Mendez [facility] CPT-4: 18495 06/28/2014 OFFICE/OUTPATIENT VISIT EST Diagnosis: SINUSITIS, ACUTE[ICD9: 461.9] Diagnosis: OTITIS MEDIA NOS[ICD9: 382.9] Sarah Jong Cunningham [facility] CPT-4: 35641 06/10/2014 ([id number]) OFFICE/OUTPATIENT VISIT EST Diagnosis: 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] Diagnosis: - I - HYPERLIPIDEMIA NEC/NOS[ICD9: 272.4] Diagnosis: - I - HYPERTENSION[ICD9: 401.9] Neelasabina Cunningham [facility] CPT-4: 87398 03/29/2014 ([id number]) OFFICE/OUTPATIENT VISIT EST Diagnosis: 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] Diagnosis: - I - HYPERTENSION[ICD9: 401.9] Diagnosis: - I - HYPERLIPIDEMIA NEC/NOS[ICD9: 272.4] Diagnosis: Hand lesion[ICD9: 709.9] Neela DOS SANTOS [facility] CPT-4: 19668 11/30/2013 ([id number]) OFFICE/OUTPATIENT VISIT EST Diagnosis: 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] Diagnosis: HYPERLIPIDEMIA NEC/NOS[ICD9: 272.4] Diagnosis: HYPERTENSION[ICD9: 401.9] Neela VASQUEZ [facility] CPT-4: 76422 08/03/2013 ([id number]) OFFICE/OUTPATIENT VISIT EST Diagnosis: DM W/O COMPLICATION TYPE II, 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] Diagnosis: HYPERTENSION[ICD9: 401.9] Diagnosis: HYPERLIPIDEMIA NEC/NOS[ICD9: 272.4] Neela GREGORIO S. NURISNDER [facility] CPT-4: 88516 04/06/2013 ([id number]) OFFICE/OUTPATIENT VISIT EST Diagnosis: 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] Diagnosis: HYPERLIPIDEMIA NEC/NOS[ICD9: 272.4] Diagnosis: HYPERTENSION[ICD9: 401.9] Neela LAWLER NDEGerald [facility] CPT-4: 87119 12/01/2012 ([id number]) OFFICE/OUTPATIENT VISIT EST Diagnosis: 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] Diagnosis: HYPERTENSION[ICD9: 401.9] Diagnosis: HYPERLIPIDEMIA NEC/NOS[ICD9: 272.4] Neeladano GREGORIO SMendez NURISNDER [facility] CPT-4: 71187 08/04/2012 ([id number]) OFFICE/OUTPATIENT VISIT EST Diagnosis: URINARY FREQUENCY[ICD9: 788.41] Neela CostaMendez VICENTEER [facility] CPT-4: 38234 06/01/2012 OFFICE/OUTPATIENT VISIT EST Diagnosis: Agitation[ICD9: 307.9] Diagnosis: Frequent urination[ICD9: 788.41] Janet MURILLO JuhiMendez NURISNDER [facility] CPT-4: 30897 05/29/2012 OFFICE/OUTPATIENT VISIT EST Diagnosis: SINUSITIS, ACUTE[ICD9: 461.9] Diagnosis: OTALGIA[ICD9: 388.70] Neeladano Costa. NURISNDER [facility] CPT-4: 02135 05/25/2012 OFFICE/OUTPATIENT VISIT EST Diagnosis: DM W/O COMPLICATION TYPE II, 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] Diagnosis: HYPERTENSION[ICD9: 401.9] Diagnosis: HYPERLIPIDEMIA NEC/NOS[ICD9: 272.4] Neeladano GREGORIO S. NURISNDER [facility] CPT-4: 62959 04/07/2012 OFFICE/OUTPATIENT VISIT EST Diagnosis: FINGER INJURY[ICD9: 959.5] Janet Cunningham [facility] CPT-4: 59804 12/16/2011 ([id number]) OFFICE/OUTPATIENT VISIT EST Diagnosis: DM W/O COMPLICATION TYPE II, 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] Diagnosis: HYPERTENSION[ICD9: 401.9] Diagnosis: HYPERLIPIDEMIA NEC/NOS[ICD9: 272.4] Neela GREGORIO SMendez ORENDER DO [facility] CPT-4: 32029 12/03/2011 ([id number]) OFFICE/OUTPATIENT VISIT EST Diagnosis: 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] Diagnosis: HYPERLIPIDEMIA NEC/NOS[ICD9: 272.4] Diagnosis: HYPERTENSION[ICD9: 401.9] Neela MURILLO JuhiMendez ORE NDER DO [facility] CPT-4: 81317 08/29/2011 OFFICE/OUTPATIENT VISIT EST Diagnosis: 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] Diagnosis: HYPERLIPIDEMIA NEC/NOS[ICD9: 272.4] Diagnosis: HYPERTENSION[ICD9: 401.9] Neela MURILLO SMendez ORE NDER DO [facility] CPT-4: 29673 05/30/2011 OFFICE/OUTPATIENT VISIT EST Diagnosis: SKIN SENSATION DISTURB[ICD9: 782.0] Neela GREGORIO S. ORENDER [facility] CPT-4: 37482 01/29/2011 OFFICE/OUTPATIENT VISIT EST Diagnosis: SKIN SENSATION DISTURB[ICD9: 782.0] Neela GREGORIO S. ORENDER DO [facility] CPT-4: 38641 01/14/2011 OFFICE/OUTPATIENT VISIT EST Neela MURILLO SMendez ORE NDER DO [facility] CPT- 4: 77502 01/01/2011 OFFICE/OUTPATIENT VISIT EST Neela MURILLO SMendez ORE NDER DO [facility] CPT- 4: 56124 11/29/2010 ([id number]) OFFICE/OUTPATIENT VISIT EST Neela HORAN SMendez ORENDER DO [facility] CPT-4: 99417 08/28/2010 ([id number]) OFFICE/OUTPATIENT VISIT, EST Neela WILDE SMendez ORENDER DO [facility] CPT-4: 34524 06/05/2010 ([id number]) OFFICE/OUTPATIENT VISIT, [facility] CPT-4: 43317 02/05/2010 ([id number]) OFFICE/OUTPATIENT VISIT, EST Neela HYMAN DO [employer] CPT-4: 36808 10/09/2009 ([id number]) OFFICE/OUTPATIENT VISIT, RENETTA HYMAN DO [employer] CPT-4: 37352 08/22/2009 Plan of Care Planned Activity Notes [...] : J44.1 08/10/2019 Appointment: Neela Hyman WPtel: [address] [place] [address] ACUTE ILLNESS 08/10/2019 Visit Diagnosis Plan: Sore on toe Discussion: Keep farhat an/dry Keflex Notify if worsens ICD-9 : 709.9 ICD-10 : L98.9 07/06/2019 Appointment: Neela Hyman WPtel: [address] [place] [address] ACUTE ILLNESS 07/06/2019 Patient Education: Jaskaran- [employer] [id number] [id number] https://www.[employer].3Leaf/samplemd/resources/getResource/61/2qt689ex-[email or web address] Completed 07/06/2019 Visit Diagnosis Plan: Lymphoma involving lung Discussi on: Doing weekly lab and chemo ICD-9 : 202.82 ICD-10 : C85.99 05/10/2019 Visit Diagnosis Plan: Advanced chronic obstructive pul monary disease Discussion: Continue oxygen and pulmonary rehab Follow Up: 3 months ICD-9 : 496 ICD-10 : J44.9 05/10/2019 Appointment: Neela Hyman WPtel: [address] [place], [place] [phone] [place] FOLLOW UP 05/10/2019 Appointment: Neela Hyman WPtel: [address] [place], [place] [phone] he called 04/14/19-- he was at physical [...] : C85.99 03/29/2019 Appointment: Neela Hyman WPtel: [address] [place], [place] [phone] Hospital Follow Up 03/29/2019 Appointment: Neela Hyman WPtel: [address] [place], [place] [id number] [place] INJECTION 03/04/2019 Visit Diagnosis Plan: Chronic obstructiv e pulmonary disease with (acute) exacerbation Discussion: Increase SVNS with duoneb to QID Prednisone taper ICD-9 : 491.21 ICD-10 : J44.1 01/05/2019 Visit Diagnosis Plan: Other nonspecific abnormal findi ng of lung field Discussion: Referral to pulmonology--will likely need bronchoscopy--path results discussed ICD-9 : 786.6 ICD-10 : R91.8 01/05/2019 Appointment: Neela Hyman WPtel: [address] [place], [place] [phone] [place] FOLLOW UP 01/05/2019 Patient Education: prednisone- [employer] C[employer]on [id number] https://www.[employer].com/samplemd/resources/getResource/61/b4el9522-136g-5c90-wi Completed 01/05/2019 Care Plan: Referral Order SNOMED-CT : [id number] Pending 01/05/2019 Appointment: Neela Hyman WPtel: [address] [place], [place] [phone] [place] CANCELED 12/21/2018 Visit Diagnosis Plan: Solitary pulmonary nodule Discus esmer: CT guided needle biopsy of RUL lung mass ICD-9 : 793.11 ICD-10 : R91.1 12/09/2018 Visit Diagnosis Plan: Tinea corporis Discussion: Diflu can--hold simvastatin and fenofibrate while taking ICD-9 : 110.5 ICD-10 : B35.4 12/09/2018 Appointment: Neela Hyman WPtel: [address] [place], [place] [phone] [place] FOLLOW UP 12/09/2018 Appointment: Gely Harp [address] [place] [address] [place] NO SHOW 12/01/2018 Visit Diagnosis Plan: [...] : J98.4 11/24/2018 Appointment: Neela Hyman WPtel: [address] [place], [place] [phone] [place] FOLLOW UP 11/24/2018 Care Plan: PET IMAGE FULL BODY LOINC : 4 2711-2 Pending 11/24/2018 Appointment: Neela Hyman WPtel: [address] [place], [place] [phone] [place] Consult 09/21/2018 Visit Diagnosis Plan: Pneumonia, unspecified organism Discussion: Patient clinically improved. Recent CT scan from 09/07 showed unresolved right upper lobe pneumonia. Finished another 7 days of levaquin. Will repeat CBC early next week. Order sent with patient to get done at [facility]. FU CT recommended in 4 weeks. Patient states understanding. ICD-9 : 486 ICD-10 : J18.9 09/16/2018 Appointment: Amita [facility] [id number] FOLLOW UP 09/16/2018 Visit Diagnosis Plan: Pneumonia, unspecified organism Discussion: Clinically patient feels and looks much better but need CT scan of chest due to ongoing round pneumonia in association with his known lymphoma ICD-9 : 486 ICD-10 : J18.9 09/03/2018 Appointment: Neela Hyman WPtel: [phone] [facility] FOLLOW UP 09/03/2018 Care Plan: CT THORAX [...] before upcoming appt. with doctor[facility], CMP, TSH, Lipid, A1C ICD-9 : 250.02 ICD-10 : E11.65 08/27/2018 Visit Diagnosis Plan: Essential (primary) hypertension Discussion: Stable on diltiazem. Jc vieyra. Had ECHO last week. Requesting copies of results from cardiology. ICD-9 : 401.9 ICD-10 : I10 08/27/2018 Appointment: Amita Henderson [facility] [id number] FOLLOW UP 08/27/2018 Visit Diagnosis Plan: Chronic [...] ICD-10 : R09.89 08/13/2018 Appointment: Amita [facility] [address] FOLLOW UP 08/13/2018 Appointment: Amita [facility] [id number] CANCELED 08/13/2018 Patient Education: prednisone- [employer] Coupon [id number] https://www.hurleypalmerflatt/samplemd/resources/getResource/61/ns30dh0m-0t79-8ew8-3g Completed 08/13/2018 Visit Diagnosis Plan: Other specified [...] ICD-10 : J18.9 08/11/2018 Appointment: Amita Henderson [address] [place], [place] [address] ACUTE ILLNESS 08/11/2018 Care Plan: CHEST X-RAY 2VW FRONTAL&LATL LOINC : 14846-7 Pending 07/20/2018 Visit Diagnosis Plan: Dyspnea, unspecified Discussion: CXR- to be completed at the hospital. Will call with results and any adjustments in plan. Solumedrol 125 administered in clinic Prednisone 20 mg BID x 5 days- start tomorrow ICD-9 : 786.09 ICD-10 : R06.00 07/16/2018 Appointment: Amita Henderson [address] [place], [place] [address] ACUTE ILLNESS 07/16/2018 Patient Education: prednisone- [employer] Coupon [id number] https://www.hurleypalmerflatt/sampleArsenal Vascular/resources/getResource/61/15e5d9io-vn71-6yl8-p6 Completed 07/16/2018 Visit Diagnosis Plan: Acute bronchitis due to other sp ecified organisms Discussion: Kenalog 40 mg IM administered in clinic. Doxycycline called into [facility]. Take as directed. Continue nebulizer and Trelegy. Follow up if symptoms are not improving with treatment regimen. Patient states understanding of all instruction. ICD-9 : 466.0 ICD-10 : J20.8 07/13/2018 Appointment: Amita Henderson [address] [place], [place] [address] ACUTE ILLNESS 07/13/2018 Patient Education: doxycycline hyclate- OptimizeRX Cou saritha [id number] https://www.hurleypalmerflatt/sampleArsenal V[employer]/resources/getResource/61/3o336z86-1j5g-2194-6f Completed 07/13/2018 Care Plan: [place] : 06605-6 Pending 07/13/2018 Care Plan: CBC Pending 07/13/2018 Care Plan: A1C HPLC LOINC : 49630-7 Pending 07/13/2018 Visit Diagnosis Plan: Mixed hyperlipidemia Discussion: Stable Lab discussed ICD-9 : 272.4 ICD-10 : E78.2 06/03/2018 Visit Diagnosis Plan: Type 2 diabetes mellitus with hy perglycemia Discussion: Lab discussed Accuchecks daily Continue current meds ICD-9 : 250.02 ICD-10 : E11.65 06/03/2018 Visit Diagnosis Plan: Essential (primary) hypertension Discussion: Stable ICD-9 : 401.9 ICD-10 : I10 06/03/2018 Visit Diagnosis Plan: Chronic obstructive pulmonary di sease, unspecified Discussion: Stable ICD-9 : 496 ICD-10 : J44.9 06/03/2018 Appointment: Neela Hyman WPtel: [address] [place] [address] [place] FOLLOW UP 06/03/2018 Visit Diagnosis Plan: [...] ICD-10 : J44.9 05/04/2018 Appointment: Gely Harp [address] [place] [address] ACUTE ILLNESS 05/04/2018 Visit Diagnosis Plan: Localized edema Discussion: Cont inue lasix and potassium at every other day Recheck lab and fwup in 3mos Follow Up: 3 months ICD-9 : 782.3 ICD-10 : R60.0 03/03/2018 Appointment: Neela Hmyan WPtel: [address] [place] [address] FOLLOW UP 03/03/2018 Patient Education: Patient Medication Summary Completed 03/03/2018 Visit Diagnosis Plan: Localized edema Discussion: Finch ge lasix and potassium to every other day Check Chem 7 in 2 weeks and fwup ICD-9 : 782.3 ICD-10 : R60.0 02/17/2018 Appointment: Neela Hyman WPtel: [address] [place] [address] FOLLOW UP 02/17/2018 Patient Education: Patient Medication [...] 272.4 ICD-10 : E78.2 02/10/2018 Appointment: Neela Hymantel: [phone] [phone] [place] FOLLOW UP 02/10/2018 Patient Education: Patient Medication Summary Completed 02/10/2018 Visit Diagnosis Plan: Mixed hyperlipidemia Discussion: Lab [...] ICD-10 : L02.212 11/05/2017 Visit Diagnosis Plan: Type 2 diabetes mellitus with hy perglycemia Discussion: Lab discussed Accuchecks daily Go back to Y and exercise Follow Up: 3 months ICD-9 : 250.02 ICD-10 : E11.65 11/05/2017 Visit Diagnosis Plan: Essential (primary) hypertension Discussion: Stable ICD-9 : 401.9 ICD-10 : I10 11/05/2017 Appointment: Neela Hyman WPtel: [phone] [facility] [place] FOLLOW UP 11/05/2017 Patient Education: Patient Medication Summary Completed 11/05/2017 Patient Education: Patient Medication Summary Completed 11/03/2017 Care Plan: [place] : [address]-8 Pending 11/03/2017 Care Plan: LIPID PANEL LOINC : 38268-0 Pending 11/03/2017 Care Plan: CBC Pending 11/03/2017 Care Plan: A1C HPLC LOINC : 91712-9 Pending 11/03/2017 Visit Diagnosis Plan: Allergic urticaria [...] ICD-10 : L50.0 09/09/2017 Appointment: Gely Harp [address] [place] [address] ACUTE ILLNESS 09/09/2017 Patient Education: Patient Medication [...] ICD-10 : K29.00 08/07/2017 Appointment: Gely Harp [address] [place], [place] [phone] Hospital Follow Up 08/07/2017 Patient Education: Patient Medication Summary Completed 08/07/2017 Visit Diagnosis Plan: Essential (primary) hypertension Discussion: Increase Cardizem CD to 360mg daily ICD-9 : 401.9 ICD-10 : I10 08/04/2017 Visit Diagnosis Plan: Type 2 diabetes mellitus without complications Discussion: Accuchecks daily Lab discussed Continue current meds ICD-9 : 250.00 ICD-10 : E11.9 08/04/2017 Appointment: [facility] [phone] [facility] [facility] 08/04/2017 Patient Education: Patient Medication Summary Completed 08/04/2017 Patient Education: Patient Medication Summary Completed 07/31/2017 Care Plan: [place] : [address]-8 Pending 07/31/2017 Care Plan: ASSAY THYROID STIM HORMONE Pen ding 07/31/2017 Care Plan: LIPID PANEL LOINC : 25560-3 Pending 07/31/2017 Care Plan: CBC Pending 07/31/2017 Care Plan: A1C HPLC LOINC : 76833-2 Pending 07/31/2017 Patient Education: Patient Medication Summary Completed 06/19/2017 Patient Education: Patient Medication Summary Completed 06/09/2017 Care Plan: CT SOFT TISSUE [place] : 76[address]-6 Pending 06/09/2017 Visit Diagnosis Plan: Acute sialoadenitis [...] ICD-10 : B02.9 06/04/2017 Appointment: Gely Harp [address] [place], [place] [address] ACUTE ILLNESS 06/04/2017 Patient Education: Patient Medication [...] ICD-10 : B02.9 06/02/2017 Appointment: Gely Harp [address] [place], [place] [phone] ACUTE ILLNESS 06/02/2017 Patient Education: Patient Medication [...] E78.2 05/05/2017 Appointment: Neela Hyman WPtel: [phone] [facility] FOLLOW UP 05/05/2017 Patient Education: Patient Medication Summary Completed 05/05/2017 Patient Education: Patient Medication Summary Completed 05/01/2017 Care Plan: A1C HPLC [facility] : 82271-7 Pending 05/01/2017 Visit Diagnosis Plan: Chronic obstructiv [...] ICD-10 : H61.23 04/10/2017 Appointment: Gely Harp [address] [place], [place] [phone] ACUTE ILLNESS 04/10/2017 Patient Education: Patient Medication Summary Completed 04/10/2017 Appointment: Neela Hyman WPtel: [address] [place], [place] [phone] [place] INJECTION 03/28/2017 Patient Education: Patient Medication [...] : I10 02/03/2017 Appointment: Neela Hyman WPtel: [address] [place], [place] [phone] FOLLOW UP 02/03/2017 Patient Education: Patient Medication Summary Completed 02/03/2017 Patient Education: Patient Medication Summary Completed 01/30/2017 Care Plan: [place] : [address]-6 Pending 01/30/2017 Care Plan: LIPID PANEL LOINC : 49279-6 Pending 01/30/2017 Care Plan: CBC Pending 01/30/2017 Care Plan: A1C HPLC LOINC : 41941-5 Pending 01/30/2017 Care Plan: ASSAY OF PSA [...] : J44.9 10/30/2016 App[facility]ment: [phone] [facility] [facility] / lm ~sl 10/30 confirmed~sl FOLLOW UP 11/2016 Patient Education: Patient Medication Summary Completed 10/30/2016 Patient Education: Patient Medication Summary Completed 10/24/2016 Visit Diagnosis Plan: Acute bronchitis, unspecified Di scussion: Patient sounds and looks much improved Continue current regimen Keep appt with Dr Levi for Friday Follow up PRN ICD-9 : 466.0 ICD-10 : J20.9 08/30/2016 Appointment: Sammi [facility] [facility] [place] / rang and rang rang 08/30 [...] : J20.9 08/27/2016 Appointment: Sammi Najera [address] [facility] FOLLOW UP 08/27/2016 Patient Education: Patient Medication Summary Completed 08/27/2016 Care Plan: Referral Order SNOMED-CT : 30 2201215 Pending 08/27/2016 Visit Diagnosis Plan: Type 2 [...] : E78.2 07/02/2016 Appointment: Ne[facility]Ptel[facility] [phone] [facility] 07/01 rang and rang`sl FOLLOW UP 7 Patient Education: Patient Medication Summary Completed 07/02/2016 Patient Education: Patient Medication Summary Completed 06/27/2016 Care Plan: LIPID PANEL LOINC : 11645-1 Pending 06/27/2016 Care Plan: COM[place] : 56636-6 Pending 06/27/2016 Care Plan: A1C HPLC LOINC : 82103-1 Pending 06/27/2016 Visit Diagnosis Plan: Acute bronchitis, [...] ICD-10 : J20.9 06/14/2016 Appointment: Sammi Najera [address] [place], [place] [address] FOLLOW UP 06/14/2016 Patient Education: Patient Medication [...] ICD-10 : J20.9 06/13/2016 Appointment: Sammi Najera [address] [place], [place] [address] ACUTE ILLNESS 06/13/2016 Patient Education: Patient Medication Summary Completed 06/13/2016 Care Plan: CHEST X-RAY 2VW FRONTAL&LATL LOINC : 59921-4 Pending 06/13/2016 Visit Plan: Increase metoprolol to 100mg po BID BP readings and BP check in 1month 05/14/2016 Appointment: Neela Hyman WPtel: [address] [place], [place] [phone] 05/13 rang and rang`sl FOLLOW UP 6 Patient Education: Patient Medication Summary Completed 05/14/2016 Visit Plan: Increase metoprolol to 50mg BID BP check in 1 week f/u BP appt 2 weeks consider musculoskeletal if pain returns 04/29/2016 Appointment: Neela Hyman WPtel: [address] [place], [place] [phone] 04/25 confimred~sl FOLLOW UP 04/29/2016 Patient Education: Patient Medication Summary Completed 04/29/2016 Visit Plan: Stat CT scan of abdomen/pelv is to look for stone Hydrate and use tramadol prn Increase metoprolol to 25mg po BID Will see urology pending CT scan results 04/22/2016 Appointment: Neela Hyman WPtel: [address] [place] [address] 04/17 confirmed-sp ACUTE ILLNESS 04/22/2016 Patient Education: [...] flu shot 04/01/2016 Appointment: Neela Hyman WPtel: [address] [place], [place] [phone] FOLLOW UP 04/01/2016 Patient Education: Patient Medication Summary Completed 04/01/2016 Patient Education: [facility] - Saving AutoInj - 18-64 - Dynamic Heber l ID Completed 04/01/2016 Patient Education: Patient Medication Summary Completed 03/28/2016 Care Plan: A1C HPLC LOINC : 01877-9 Pending 03/28/2016 Care Plan: [place] : 04328-9 Pending 03/28/2016 Visit Plan: Lab discussed Continue curre nt meds Accuchecks daily 11/30/2015 Appointment: Neela Hyman WPtel: [address] [place], [place] [phone] [place] 11/28 confirmed~sl FOLLOW UP 11/30/2015 Patient Education: Patient Medication Summary Completed 11/30/2015 Appointment: Neela Hyman WPtel: [address] [place] [address] [place] RESCHEDULED 11/28/2015 Patient Education: Patient Medication Summary Completed 11/23/2015 Care Plan: [place] : 04136-7 Pending 11/23/2015 Care Plan: LIPID PANEL LOINC : 48397-7 Pending 11/23/2015 Care Plan: CBC Pending 11/23/2015 Care Plan: A1C HPLC LOINC : 40515-5 Pending 11/23/2015 Visit Plan: Lab discussed Accucheckjuhi richard ly Continue current meds Cymbalta helping with feet and mood 08/29/2015 Appointment: Neela Hyman WPtel: [address] [place] [address] FOLLOW UP 08/29/2015 Patient Education: Patient Medication Summary Completed 08/29/2015 Visit Plan: Check CXR Stop all steroids and steroid inhalers Use SVN with but change to duoneb Add singulair for allergy etiology Change fluoxetine to cymbalta 60mg daily Viagra samples given to try prn--warned of no nitrates 08/14/2015 Appointment: Neela Hyman WPtel: [address] [place], [place] [phone] lm to reschedule ~sl 07/27 lm ~sl 08/09 busy 08/10 conf irmed-sp Annual Well Visit 08/14/2015 Patient Education: Patient Medication Summary Completed 08/14/2015 Care Plan: CHEST X-RAY 2VW FRONTAL&LATL LOINC : 50552-4 Ordered 08/14/2015 Visit Plan: Decadron 8mg given [...] improving as expected 08/09/2015 Appointment: Sammi Najera [address] [place], [place] [phone] ER Follow UP 08/09/2015 Patient Education: Patient Medication Summary Completed 08/09/2015 Patient Education: [facility] Saving AutoInj - 18-64 - Dynamic [...] it 05/22/2015 Appointment: Neela Hyman WPtel: [address] [place] [address] 05/17 confirmed~sl FOLLOW UP 05/22/2015 Patient Education: Patient Medication Summary Completed 05/22/2015 Patient Education: Patient Medication Summary Completed 05/15/2015 Visit Plan: Obtain EMGs done at [place] from when fractured left arm Lab discussed Accuchecks daily 02/13/2015 Appointment: Neela Hyman WPtel: [address] [place] [id number] 02/10 confrimed FOLLOW UP 02/13/2015 Patient Education: Patient Medication Summary Completed 02/13/2015 Patient Education: Patient Medication Summary Completed 02/09/2015 Visit Plan: discussed lab add fenofibrat e 134mg po daily recheck fasting lab in 3 months, CBC, CMP, Lipids, hgb AIC 11/07/2014 Appointment: Neela Hyman WPtel: [address] [place], [place] [phone] 11/04 appt confirmed cn FOLLOW UP 015 Patient Education: Patient Medication Summary Completed 11/07/2014 Patient Education: Patient Medication Summary Completed 11/03/2014 Visit Plan: Continue loratadine 10mg richard ly Notify if symptoms return 10/04/2014 Appointment: Neela Hyman WPtel: [address] [place] [address] confirmed on 10/03 at 2:42pm FOLLOW UP 09/23 Patient Education: Patient Medication Summary Completed 10/04/2014 Appointment: Neela Hyman WPtel: [address] [place] [address] ACUTE ILLNESS 09/28/2014 Appointment: Loren Garza WPtel: [address] [place] [address] FOLLOW UP 09/22/2014 Patient Education: Patient Medication Summary Completed 09/22/2014 Appointment: Loren Garza WPtel: [address] [place] [address] ACUTE ILLNESS 09/21/2014 Patient Education: Patient Medication Summary Completed 09/21/2014 Patient Education: [facility] - Saving AutoInj - 18+ - Dynamic Portal ID Completed 09/21/2014 Visit Plan: Lab discussed Continue daily accuchecks Continue current meds 06/28/2014 Appointment: Neela Hyman WPtel: [address] [place] [address] FOLLOW UP 06/28/2014 Patient Education: Patient Medication Summary Completed 06/28/2014 Patient Education: Patient Medication Summary Completed 06/23/2014 Appointment: Sarah Sunshine WPtel: [address] [place] [address] ACUTE ILLNESS 06/10/2014 Patient Education: Patient Medication Summary Completed 06/10/2014 Patient Education: [facility] - Saving AutoInj - 18+ - Dynamic Portal ID Completed 06/10/2014 Visit Plan: Lab discussed Continue daily accuchecks Continue current meds 03/29/2014 Appointment: Neela Hyman WPtel: [address] [place], [place] [phone] FOLLOW UP 03/29/2014 Patient Education: Patient Medication Summary Completed 03/29/2014 Patient Education: Patient Medication Summary Completed 03/23/2014 Visit Plan: Lab discussed Continue curre nt meds and accuchecks See surgery for removal of hand lesion 11/30/2013 Appointment: Neela Hymantel: [address] [place], [place] [phone] 11/29 no answer FOLLOW UP 11/30/2013 Patient Education: Patient Medication Summary Completed 11/30/2013 Visit Plan: Lab discussed Continue curre nt meds 08/03/2013 Appointment: Neela Hyman WPtel: [address] [place] [address] FOLLOW UP 08/03/2013 Patient Education: Patient Medication Summary Completed 08/03/2013 Visit Plan: Lab Discussed Will continue current meds and pt will get back on diet/exercise Check lab in 4mos and fwup 04/06/2013 Appointment: Neela Hyman WPtel: [address] [place] [address] FOLLOW UP 04/06/2013 Patient Education: Patient Medication Summary Completed 04/06/2013 Visit Plan: Lab discussed Continue daily accuchecks 12/01/2012 Appointment: Neela Hymantel: [address] [place] [address] 11/30 no answer FOLLOW UP 12/01/2012 Patient Education: Patient Medication Summary Completed 12/01/2012 Visit Plan: Continue current meds and da russell accuchecks Lab discussed 08/04/2012 Appointment: Neela Hyman WPtel: [address] [place] [address] FOLLOW UP 08/04/2012 Patient Education: Patient Medication Summary Completed 08/04/2012 Appointment: Neela Hyman WPtel: [address] [place], [place] [phone] [place] [address] 06/01/2012 Patient Education: Patient Medication Summary Completed 06/01/2012 Appointment: Janet Jean Baptiste WPtel: [address] [place], [place] [phone] FOLLOW UP 05/29/2012 Patient Education: Patient Medication Summary Completed 05/29/2012 Visit Plan: pt states Dr. Hyman told h is to increase his Prozac dose while she was talking to her at [facility]. Discussed that pt. should not increase or decrease dosage without Dr's knowledge. Pt. will seek hearing test here in town at the hearing aid place on [address]. Discussed that ear pain is likely caused by sinus pressure. Pt. will notify if no improvement. 05/25/2012 Appointment: Janet Jean Baptiste WPtel: [address] [place] [address] ACUTE ILLNESS 05/25/2012 Patient Education: Patient Medication Summary Completed 05/25/2012 Visit Plan: Continue current meds Contin ue daily accuchecks but alternate times Increase fish oil to 3gm daily 04/07/2012 Appointment: Neela Hyman WPtel: [address] [place] [address] 04/06 FOLLOW UP 04/07/2012 Patient Education: Patient Medication Summary Completed 04/07/2012 Appointment: Janet Jean Baptiste WPtel: [address] [place] [address] ACUTE ILLNESS 12/16/2011 Patient Education: Patient Medication Summary Completed 12/16/2011 Visit Plan: Increase 12/03/2011 Appointment: Neela Hyman WPtel: [address] [place], [place] [phone] FOLLOW UP 12/03/2011 Patient Education: Patient Medication Summary Completed 12/03/2011 Visit Plan: Continue current meds Contin ue accuchecks 08/29/2011 Appointment: Neela Hyman WPtel: [address] [place] [address] [place] FOLLOW UP 08/29/2011 Patient Education: Patient Medication Summary Completed 08/29/2011 Visit Plan: Continue current meds except restart zocor 05/30/2011 Appointment: Neela Hyman WPtel: [address] [place], [place] [phone] FOLLOW UP 05/30/2011 Patient Education: Patient Medication Summary Completed 05/30/2011 Visit Plan: Continue tennis elbow strap May go back to weight-lifing--light weigts every other day 01/29/2011 Appointment: Neela Hyman WPtel: [address] [place] [address] FOLLOW UP 01/29/2011 Patient Education: Patient Medication Summary Completed 01/29/2011 Visit Plan: Continue tennis elbow strap and anti-inflammatories 01/14/2011 Appointment: Neela Hyman WPtel: [address] [place] [address] FOLLOW UP 01/14/2011 Appointment: Janet Jean Baptiste WPtel: [address] [place] [address] NEW PATIENT 01/14/2011 Patient Education: Patient Medication Summary Completed 01/14/2011 Appointment: Neela Hyman WPtel: [address] [place] [address] FOLLOW UP 01/08/2011 Appointment: Neela Hyman WPtel: [address] [place], [place] [phone] FOLLOW UP 01/01/2011 Appointment: Neela Hyman WPtel: [address] [place] [address] UA 01/01/2011 Patient Education: Patient Medication Summary [...] given. 11/29/2010 Appointment: Janet Jean Baptiste WPtel: [address] [place] [address] ACUTE ILLNESS 11/29/2010 Patient Education: Patient Medication Summary Completed 11/29/2010 Visit Plan: Cont current meds Check CMP, Lipids, HbA1C 08/28/2010 Appointment: Neela Hyman WPtel: [address] [place] [address] FOLLOW UP 08/28/2010 Patient Education: Patient Medication Summary Completed 08/28/2010 Visit Plan: Cont current meds and accuch ecks Add Zocor 40mg q HS Check Lipids and HbA1C in 3mos 06/05/2010 Appointment: Neela Hyman WPtel: [address] [place] [address] FOLLOW UP 06/05/2010 Patient Education: Patient Medication Summary Completed 06/05/2010 Visit Plan: Check Lipids and HbA1C 02/05/2010 Appointment: Neela Hyman WPtel: [address] [place] [address] FOLLOW UP 02/05/2010 Patient Education: Patient Medication Summary Completed 02/05/2010 Visit Plan: HbA1C in 3mos. Continue Accu checks BID alternating times. Check HbA1C, CMP, Lipids 10/09/2009 Appointment: Neela Hyman WPtel: [address] [place] [address] FOLLOW UP 10/09/2009 Patient Education: Patient Medication Summary Completed 10/09/2009 Visit Plan: Saline nasal flushes prn. Ty lenol/Motrin prn headache. Notify if persists/symptoms worsening. 08/22/2009 Appointment: Neela Hyman WPtel: [address] [place] [address] ACUTE ILLNESS 08/22/2009 Patient Education: Patient Medication Summary Completed 08/22/2009 Referral: Aubrey Rand WPtel: [address] [place], [place] [id number] [place] Office will verfy his insurance then they will contact patient Completed Referral: Shahbaz Brennan WPtel: [address] [facility] [address] [id number] [place] Referral Completed Referral: Ion Levi [address] [facility] C&D [id number] [place] Referral Appointment Requested Referral: Ion Levi [address] [facility] C&D [id number] [place] Referral Appointment Requested Instructions Comment . [...] with it . Obtain EMGs done at [place] from when fractured left arm Lab discussed [...] while she was talking to her at [facility]. Discussed that pt. should not increase or decrease dosage without Dr's knowledge. Pt. will seek hearing test here in [facility] at the hearing aid place on [address]. Discussed that ear pain is likely caused [...]
--- OUTSIDE RECORDS SUMMARY | 2019-12-09 09:08 | XMS REPORT | CCD ---
Author Author Michael Hyman D.O. Organization [facility] Address [address] [place] [address] Phone Care Team Providers Care Human Resources Representative Name Role Phone Neela Hyman D.O., PP Unavailable CCM Unavailable Summary Purpose Interface Exchange Insurance Providers Payer name Policy type / Coverage type Covered green party ID Effective Begin Date Effective End Date ABS FOR CertiRx Commercial Insurance [id number] Unknown Family History Family History data not found Social History Social History Element Codes Description Effective Dates Marital status Unknown 05/30/[address]: [id number] Former smoker quit 25 years ago 01/01/2011 [...] Instructions duloxetine 60 mg capsule,delayed release RxNorm: 568153 TAKE ONE CAPSULE BY MOUTH EVERY DAY 08/16/2019 02/11/2020 Active potassium chloride ER 20 mEq tablet,extended release RxNorm: 576612 1 Tablet(s) Oral two times a day 07/22/2019 10/19/2019 Active metformin 500 mg tablet RxNorm: 044664 2 Tablet(s) Oral two afshan es a day 07/13/2019 09/11/2019 Active Singulair 10 mg tablet RxNorm: 475862 TAKE ONE TABLET BY MOUTH EVERY EVENING 07/06/2019 01/02/2020 Active Reselected prescribe r from PEG MAHER to [facility] Keflex 500 mg capsule RxNorm: 271366 1 Capsule(s) Oral three ti mes a day 07/06/2019 07/13/2019 Inactive Singulair 10 mg tablet RxNorm: 519219 TAKE ONE TABLET BY MOUTH EVERY EVENING 06/22/2019 07/05/2019 Inactive Reselected prescribe r from PEG MAHER to [facility] Zocor 40 mg tablet RxNorm: 345317 TAKE ONE TABLET BY M OUTH EVERY NIGHT AT BEDTIME 06/21/2019 11/17/2019 Active MagOx 400 mg (241.3 mg magnesium) tablet RxNorm: 430762 1 Table t(s) Oral QD 06/21/2019 08/20/2019 Active diltiazem ER 360 mg capsule,24 hr,extended release RxNorm: 8 38614 TAKE ONE CAPSULE BY MOUTH AT BEDTIME -REPLACES 300MG 05/17/2019 11/12/2019 Active MagOx 400 mg (241.3 mg magnesium) tablet RxNorm: 579472 1 Table t(s) Oral QD 04/26/2019 06/20/2019 Inactive Lasix 40 mg tablet RxNorm: 503896 40 MG PO DAILY 04/12/2019 No Stop Da te Active Benicar 40 mg tablet RxNorm: 032445 1 Tablet(s) Oral QD 03/29/2019 Active potassium chloride ER 20 mEq tablet,extended release RxNorm: 507246 1 Tablet(s) Oral two times a day 03/29/2019 06/27/2019 Inactive potassium chloride ER 20 mEq tablet,extended release RxNorm: 387184 1 Tablet(s) Oral QD 03/29/2019 03/28/2019 Inactive Benicar 40 mg tablet RxNorm: 969842 1 Tablet(s) Oral QD 03/29/2019 Inactive MagOx 400 mg (241.3 mg magnesium) tablet RxNorm: 894521 1 Table t(s) Oral QD 03/29/2019 04/25/2019 Inactive metformin 500 mg tablet RxNorm: 783831 2 Tablet(s) Oral two afshan es a day 03/29/2019 07/12/2019 Inactive fenofibrate micronized 134 mg capsule RxNorm: 083596 TA KE ONE CAPSULE BY MOUTH EVERY DAY 03/05/2019 08/31/2019 Active duloxetine 60 mg capsule,delayed release RxNorm: 534236 1 Capsu le(s) PO QD 01/28/2019 07/26/2019 Inactive Trelegy Ellipta 100 mcg-62.5 mcg-25 mcg powder for inhalatio n RxNorm: 3169211 1 Puff(s) INH QD 01/06/2019 12/31/2019 Active 90 day supply prednisone 20 mg tablet RxNorm: 571805 1 Tablet(s) PO T ID for 3 days then 1 po BID for 3 days then 1 po daily for 3 days 01/05/2019 03/28/2019 Inacti ve metformin ER 1,000 mg tablet,extended release 24hr RxNorm: 1 984703 TAKE TWO TABLETS (1000MG) BY MOUTH TWO TIMES A DAY 12/22/2018 07/13/2019 Inacti ve Diflucan 100 mg tablet RxNorm: 805571 1 Tablet(s) PO QD 12/09/2018 Inactive prednisone 20 mg tablet RxNorm: 808062 1 Tablet(s) PO B ID for 4 days then 1 po daily for 4 days 11/24/2018 01/04/2019 Inactive albuterol sulfate 2.5 mg/3 mL (0.083 %) solution for n ebulization RxNorm: 982701 3 Milliliter(s) INH ONE VIAL VIA NEBULIZER EVERY 4 HOURS 07/21/2019 Inactive [AttnRPh: Saving apply/adjudicate RxGRP: SG20 RxBIN:[id number] RxPCN: ID#:[id number]] Trelegy Ellipta 100 mcg-62.5 mcg-25 mcg powder for inhalatio n RxNorm: 5932724 1 Puff(s) INH QD 10/27/2018 01/06/2019 Inactive 90 day supply metoprolol succinate ER 100 mg tablet,extended release 24 hr RxNorm: 114088 TAKE ONE TABLET BY MOUTH TWICE A DAY 10/13/2018 07/09/2019 Inactive diltiazem ER 360 mg capsule,24 hr,extended release RxNorm: 8 63354 TAKE ONE CAPSULE BY MOUTH AT BEDTIME -REPLACES 300MG 10/13/2018 04/10/2019 Inactive Trelegy Ellipta 100 mcg-62.5 mcg-25 mcg powder for inhalatio n RxNorm: 9661574 INHALE ONE PUFF ONCE DAILY 09/07/2018 10/27/2018 Inactive Levaquin 750 mg tablet RxNorm: 715823 1 Tablet(s) PO QD 09/07/2018 Inactive Levaquin 750 mg tablet RxNorm: 017399 1 Tablet(s) PO QD 09/07/2018 Inactive prednisone 20 mg tablet RxNorm: 327079 2 Tablet(s) PO QAM 08/13/2018 08/19/2018 Inactive Levaquin 500 mg tablet RxNorm: 917064 1 Tablet(s) PO QD 08/11/2018 Inactive fenofibrate micronized 134 mg capsule RxNorm: 413600 TA KE ONE CAPSULE BY MOUTH EVERY DAY 08/10/2018 02/05/2019 Inactive prednisone 20 mg tablet RxNorm: 353832 1 Tablet(s) PO BID 07/16/2018 07/20/2018 Inactive doxycycline hyclate 100 mg capsule RxNorm: 7664252 1 Capsule(s) PO BID 07/13/2018 07/22/2018 Inactive duloxetine 60 mg capsule,delayed release RxNorm: 977187 TAKE ONE CAPSULE BY MOUTH ONCE A DAY 07/08/2018 01/28/2019 Inactive Lasix 40 mg tablet RxNorm: 221036 1 TABLET(S) PO QAM 06/08/201809/05 Inactive potassium chloride ER 20 mEq tablet,extended release(p art/cryst) RxNorm: 1885424 1 TABLET(S) PO QD 06/08/2018 09/05/2018 Inactive metformin ER 1,000 mg tablet,extended release 24hr RxNorm: 1 523973 TAKE TWO TABLETS (1000MG) BY MOUTH TWO TIMES A DAY 06/01/2018 11/27/2018 Inacti ve Benicar HCT 40 mg-25 mg tablet RxNorm: 578512 TAKE ONE TABLET BY MOUTH ONCE DAILY 05/11/2018 03/28/2019 Inactive Zocor 40 mg tablet RxNorm: 610362 TAKE ONE TABLET BY M OUTH EVERY NIGHT AT BEDTIME 05/11/2018 06/20/2019 Inactive Trelegy Ellipta 100 mcg-62.5 mcg-25 mcg powder for inhalatio n RxNorm: 5739205 1 PUFF(S) INH QD 04/06/2018 07/04/2018 Inactive diltiazem ER 360 mg capsule,24 hr,extended release RxNorm: 8 66157 1 Capsule(s) PO QHS replaces 300mg dose 03/30/2018 09/25/2018 Inactive Trelegy Ellipta 100 mcg-62.5 mcg-25 mcg powder for inhalatio n RxNorm: 9220166 1 Puff(s) INH QD 02/24/2018 02/23/2018 Inactive Trelegy Ellipta 100 mcg-62.5 mcg-25 mcg powder for inhalatio n RxNorm: 9302838 1 Puff(s) INH QD 02/24/2018 02/23/2018 Inactive Trelegy Ellipta 100 mcg-62.5 mcg-25 mcg powder for inhalatio n RxNorm: 6493249 1 Puff(s) INH QD 02/24/2018 04/05/2018 Inactive Lasix 40 mg tablet RxNorm: 872302 1 Tablet(s) PO QAM 02/10/201803/11 Inactive potassium chloride ER 20 mEq tablet,extended release(p art/cryst) RxNorm: 1350941 1 Tablet(s) PO QD 02/10/2018 03/11/2018 Inactive fenofibrate micronized 134 mg capsule RxNorm: 853866 1 Capsule( s) PO QD 01/30/2018 07/28/2018 Inactive metoprolol succinate ER 100 mg tablet,extended release 24 hr RxNorm: 284571 TAKE ONE TABLET BY MOUTH TWICE A DAY 12/30/2017 09/25/2018 Inactive metformin ER 1,000 mg tablet,extended release 24hr RxNorm: 1 239290 1 Tablet(s) PO BID 11/17/2017 05/15/2018 Inactive [SAVINGS FOR NON -COVERED DRUGS -- BIN:867051, PCN: ASPROD1, Group: XXXXX, ID# [id number], Questions: . THIS IS NOT INSURANCE.] Benicar HCT 40 mg-25 mg tablet RxNorm: 493060 1 Tablet(s) PO QD 05/10/2018 Inactive [SAVINGS FOR NON-COVERED JESU GS -- BIN:142319, PCN: ASPROD1, Group: XXXXX, ID# [id number], Questions: . THIS IS NOT INSURANCE.] Bactroban 2 % topical cream RxNorm: 163267 Application TOP BID 10/2409/02/2018 Inactive clindamycin HCl 300 mg capsule RxNorm: 034860 2 Capsule(s) PO TID 0 11/05/2017 11/18/2017 Inactive duloxetine 60 mg capsule,delayed release RxNorm: 963511 Capsule(s) TAKE ONE CAPSULE BY MOUTH ONCE DAILY 09/24/2017 09/23/2017 Inactive triamcinolone acetonide 0.1 % topical ointment RxNorm: 9101345 1 TOP BID 09/09/2017 11/04/2017 Inactive Bactrim DS 800 mg-160 mg tablet RxNorm: 217661 1 Tablet(s) PO BID 0 08/07/2017 08/13/2017 Inactive metronidazole 500 mg tablet RxNorm: 882605 1 Tablet(s) PO BID 08/0708/13/2017 Inactive diltiazem ER 360 mg capsule,24 hr,extended release RxNorm: 8 43840 1 Capsule(s) PO QHS replaces 300mg dose 08/04/2017 01/30/2018 Inactive fenofibrate micronized 134 mg capsule RxNorm: 396848 1 Capsule( s) PO QD 07/21/2017 01/30/2018 Inactive Zocor 40 mg tablet RxNorm: 750323 1 Tablet(s) PO QHS 07/21/201705/10 Inactive GB duloxetine 60 mg capsule,delayed release RxNorm: 232882 Capsule(s) TAKE ONE CAPSULE BY MOUTH ONCE DAILY 06/24/2017 09/24/2017 Inactive Cleocin HCl 300 mg capsule RxNorm: 819424 2 Capsule(s) PO BID 06/0206/08/2017 Inactive acyclovir 800 mg tablet RxNorm: 358961 1 Tablet(s) PO 5x day 201706/08/2017 Inactive diltiazem ER 300 mg capsule,24 hr,extended release RxNorm: 8 96967 1 Capsule(s) PO QHS replaces 240mg dose 05/05/2017 08/03/2017 Inactive ipratropium-albuterol 0.5 mg-3 mg(2.5 mg base)/3 mL ne bulization soln RxNorm: 8908757 1 Unit Dose INH Q4H as needed 05/05/2017 01/04/2019 Inactive metformin ER 1,000 mg tablet,extended release 24hr RxNorm: 1 357765 1 Tablet(s) PO BID 04/28/2017 11/17/2017 Inactive [SAVINGS FOR NON -COVERED DRUGS -- BIN:310505, PCN: ASPROD1, Group: XXXXX, ID# [id number], Questions: . THIS IS NOT INSURANCE.] diltiazem ER (XR/XT) 240 mg capsule,extended release 2 4 hr, controlled RxNorm: 206096 TAKE ONE CAPSULE BY MOUTH EVERY DAY 04/15/2017 05/04/2017 Inact avani prednisone 20 mg tablet RxNorm: 144621 1 Tablet(s) PO QD 04/10/2017 1 06/14/2016 Inactive Breo Ellipta 200 mcg-25 mcg/dose powder for inhalation RxNor m: 3303321 1 Puff(s) INH QD 04/10/2017 02/09/2018 Inactive Breo Ellipta 200 mcg-25 mcg/dose powder for inhalation RxNor m: 6705372 1 Puff(s) INH QD 04/10/2017 04/09/2017 Inactive Levaquin 500 mg tablet RxNorm: 781265 1 Tablet(s) PO QD 04/10/2017 Inactive metoprolol succinate ER 100 mg tablet,extended release 24 hr RxNorm: 129025 TAKE ONE TABLET BY MOUTH TWICE A DAY 03/24/2017 12/18/2017 Inactive fenofibrate micronized 134 mg capsule RxNorm: 131243 1 Capsule( s) PO QD 01/16/2017 07/21/2017 Inactive Benicar HCT 40 mg-25 mg tablet RxNorm: 386977 1 Tablet(s) PO QD 11/17/2017 Inactive [SAVINGS FOR NON-COVERED JESU GS -- BIN:770964, PCN: ASPROD1, Group: XXXXX, ID# [id number], Questions: . THIS IS NOT INSURANCE.] metoprolol succinate ER 100 mg tablet,extended release 24 hr RxNorm: 765184 1 Tablet(s) PO BID 10/16/2016 03/23/2017 Inactive diltiazem ER (XR/XT) 240 mg capsule,extended release 2 4 hr, controlled RxNorm: 315647 1 Capsule(s) PO QD 10/16/2016 04/13/2017 Inactive [SAVINGS FOR NON- COVERED DRUGS -- BIN:602178, PCN: ASPROD1, Group: XXXXX, ID# [id number], Questions: . THIS IS NOT INSURANCE.] metformin ER 1,000 mg tablet,extended release 24hr RxNorm: 8 90497 1 Tablet(s) PO BID 10/16/2016 04/28/2017 Inactive [SAVINGS FOR NON -COVERED DRUGS -- BIN:516929, PCN: ASPROD1, Group: XXXXX, ID# [id number], Questions: . THIS IS NOT INSURANCE.] Zocor 40 mg tablet RxNorm: 325753 1 Tablet(s) PO QHS 10/16/201607/21 Inactive GB Singulair 10 mg tablet RxNorm: 343260 Tablet(s) 1 TABLET(S) PO QHS 08/27/2016 09/02/2018 Inactive prednisone 20 mg tablet RxNorm: 722804 1 Tablet(s) PO QD 08/27/2016 0 08/31/2016 Inactive ipratropium-albuterol 0.5 mg-3 mg(2.5 mg base)/3 mL ne bulization soln RxNorm: 3407404 1 Unit Dose INH Q4H as needed 08/27/2016 05/04/2017 Inactive metoprolol succinate ER 100 mg tablet,extended release 24 hr RxNorm: 983009 TAKE ONE TABLET BY MOUTH TWICE A DAY 08/05/2016 10/16/2016 Inactive duloxetine 60 mg capsule,delayed release RxNorm: 361746 TAKE ONE CAPSULE BY MOUTH ONCE DAILY 08/05/2016 06/24/2017 Inactive prednisone 20 mg tablet RxNorm: 427134 1 Tablet(s) PO QD 06/14/2016 0 06/18/2016 Inactive ipratropium-albuterol 0.5 mg-3 mg(2.5 mg base)/3 mL ne bulization soln RxNorm: 3722848 1 Unit Dose INH Q4H as needed 06/13/2016 08/26/2016 Inactive Levaquin 500 mg tablet RxNorm: 988968 1 Tablet(s) PO QD 06/13/2016 Inactive metoprolol succinate ER 100 mg tablet,extended release 24 hr RxNorm: 843624 1 Tablet(s) PO BID replaces 50mg dose 05/14/2016 07/12/2016 Inactive metoprolol succinate ER 50 mg tablet,extended release 24 hr RxNorm: 759568 1 Tablet(s) PO BID 04/29/2016 05/13/2016 Inactive prednisone 20 mg tablet RxNorm: 325063 1 Tablet(s) PO BID 04/22/2016 04/21/2016 Inactive prednisone 20 mg tablet RxNorm: 900575 1 Tablet(s) PO BID 04/22/2016 04/28/2016 Inactive Singulair 10 mg tablet RxNorm: 761788 Tablet(s) 1 TABLET(S) PO QHS 04/01/2016 08/26/2016 Inactive metoprolol succinate ER 25 mg tablet,extended release 24 hr RxNorm: 726562 1 Tablet(s) PO QHS for blood pressure 04/01/2016 05/13/2016 Inactive fenofibrate micronized 134 mg capsule RxNorm: 185348 TA KE ONE CAPSULE BY MOUTH DAILY 01/25/2016 01/16/2017 Inactive duloxetine 60 mg capsule,delayed release RxNorm: 033963 TAKE ONE CAPSULE BY MOUTH ONCE DAILY 01/25/2016 08/04/2016 Inactive Zocor 40 mg tablet RxNorm: 922953 TAKE ONE TABLET BY MOUTH AT B EDTIME 11/13/2015 10/16/2016 Inactive GB metformin ER 1,000 mg tablet,extended release 24hr RxNorm: 8 51666 1 Tablet(s) PO BID 10/26/2015 10/16/2016 Inactive [SAVINGS FOR NON -COVERED DRUGS -- BIN:642806, PCN: ASPROD1, Group: XXXXX, ID# [id number], Questions: . THIS IS NOT INSURANCE.] Benicar HCT 40 mg-25 mg tablet RxNorm: 650323 1 Tablet(s) PO QD 06/201511/11/2016 Inactive [SAVINGS FOR NON-COVERED JESU GS -- BIN:114967, PCN: ASPROD1, Group: XXXXX, ID# [id number], Questions: . THIS IS NOT INSURANCE.] diltiazem ER (XR/XT) 240 mg capsule,extended release,control led RxNorm: 144303 1 Capsule(s) PO QD 10/26/2015 10/15/2016 Inactive [SAVINGS FOR NO N-COVERED DRUGS -- BIN:683619, PCN: ASPROD1, Group: XXXXX, ID# [id number], Questions: . THIS IS NOT INSURANCE.] Singulair 10 mg tablet RxNorm: 544144 1 TABLET(S) PO QHS 09/18/2015 1 05/31/2015 Inactive Viagra 100 mg tablet RxNorm: 211654 1 Tablet(s) PO as needed 201511/23/2018 Inactive Singulair 10 mg tablet RxNorm: 662688 1 Tablet(s) PO QHS 08/16/2015 0 08/15/2015 Inactive Singulair 10 mg tablet RxNorm: 904309 1 Tablet(s) PO QHS 08/16/2015 0 09/14/2015 Inactive duloxetine 60 mg capsule,delayed release RxNorm: 965482 1 Capsule(s) PO QD replaces fluoxetine 08/14/2015 01/24/2016 Inactive ipratropium-albuterol 0.5 mg-3 mg(2.5 mg base)/3 mL ne bulization soln RxNorm: 6179037 1 Unit Dose INH Q4H as needed 08/14/2015 06/12/2016 Inactive prednisone 20 mg tablet RxNorm: 326766 Take 3 tabs PO o nce daily x 3 days, then 2 tabs PO once daily x 3 days and then 1 tab PO once daily x 3 days 08/09/2015 08/13/2015 Inactive Symbicort 160 mcg-4.5 mcg/actuation HFA aerosol inhaler RxNo rm: 8983034 2 Puff(s) INH BID 08/09/2015 08/13/2015 Inactive Zocor 40 mg tablet RxNorm: 501116 1 Tablet(s) PO QHS 05/23/201511/11 Inactive [AttnRPh: Saving apply/adjudicate RxGRP: SG20 RxBIN:[id number] RxPCN: ID#:[id number]] Benicar HCT 40 mg-25 mg tablet RxNorm: 456370 1 Tablet(s) PO QD 10/26/2015 Inactive [SAVINGS FOR NON-COVERED JESU GS -- BIN:903160, PCN: ASPROD1, Group: XXXXX, ID# [id number], Questions: . THIS IS NOT INSURANCE.] diltiazem ER (XR/XT) 240 mg capsule,extended release,control led RxNorm: 368000 1 Capsule(s) PO QD 04/24/2015 10/20/2015 Inactive [SAVINGS FOR NO N-COVERED DRUGS -- BIN:325672, PCN: ASPROD1, Group: XXXXX, ID# [id number], Questions: . THIS IS NOT INSURANCE.] fluoxetine 40 mg capsule RxNorm: 088818 1 Capsule(s) PO QD 04/24/20 15 08/13/2015 Inactive [SAVINGS FOR NON-COVERED JESU GS -- BIN:768260, PCN: ASPROD1, Group: XXXXX, ID# XXXXXXX, Questions: . THIS IS NOT INSURANCE.] Zocor 40 mg tablet RxNorm: 907912 TABLET(S) 1 TABLET(S) PO QHS 01/2505/23/2015 Inactive [AttnRPh: Saving apply/adjud icate RxGRP:SG20 RxBIN:[id number] RxPCN: ID#:[id number]] metformin ER 1,000 mg tablet,extended release 24hr RxNorm: 8 11525 1 TABLET(S) PO BID 01/29/2015 10/26/2015 Inactive [SAVINGS FOR NON -COVERED DRUGS -- BIN:931113, PCN: ASPROD1, Group: XXXXX, ID# XXXXXXX, Questions: . THIS IS NOT INSURANCE.] fenofibrate micronized 134 mg capsule RxNorm: 784350 1 CAPSULE( S) PO QD 01/23/2015 01/17/2016 Inactive fenofibrate micronized 134 mg capsule RxNorm: 555913 1 Capsule( s) PO QD 11/07/2014 01/22/2015 Inactive diltiazem ER (XR/XT) 240 mg capsule,extended release,control led RxNorm: 143702 1 Capsule(s) PO QD 10/24/2014 04/24/2015 Inactive [SAVINGS FOR NO N-COVERED DRUGS -- BIN:028826, PCN: ASPROD1, Group: XXXXX, ID# XXXXXXX, Questions: . THIS IS NOT INSURANCE.] Benicar HCT 40 mg-25 mg tablet RxNorm: 804108 1 Tablet(s) PO QD 05/201404/24/2015 Inactive [SAVINGS FOR NON-COVERED JESU GS -- BIN:127838, PCN: ASPROD1, Group: XXXXX, ID# XXXXXXX, Questions: . THIS IS NOT INSURANCE.] fluoxetine 40 mg capsule RxNorm: 448980 1 Capsule(s) PO QD 10/25/19 15 04/24/2015 Inactive [SAVINGS FOR NON-COVERED JESU GS -- BIN:300671, PCN: ASPROD1, Group: XXXXX, ID# XXXXXXX, Questions: . THIS IS NOT INSURANCE.] azithromycin 500 mg tablet RxNorm: 034532 1 Tablet(s) PO QD 015 09/27/2014 Inactive [SAVINGS FOR NON-COVERED JESU GS -- BIN:112293, PCN: ASPROD1, Group: XXXXX, ID# XXXXXXX, Questions: . THIS IS NOT INSURANCE.] albuterol sulfate 2.5 mg/3 mL (0.083 %) solution for n ebulization RxNorm: 154623 3 Milliliter(s) INH ONE VIAL VIA NEBULIZER EVERY 4 HOURS 015 11/19/2014 Inactive [AttnRPh: Saving apply/adjudicate RxGRP: SG20 RxBIN:[id number] RxPCN: ID#:[id number]] Zocor 40 mg tablet RxNorm: 659514 TABLET(S) 1 TABLET(S ) PO QHS 1 TABLET(S) PO QHS 09/04/2014 02/21/2015 Inactive [AttnRPh: Saving apply/adjudicate RxGRP:SG20 RxBIN:[id number] RxPCN: ID#:[id number]] metformin ER 1,000 mg tablet,extended release 24hr RxNorm: 8 01339 1 Tablet(s) PO BID 08/04/2014 01/28/2015 Inactive [SAVINGS FOR NON -COVERED DRUGS -- BIN:831022, PCN: ASPROD1, Group: XXXXX, ID# XXXXXXX, Questions: . THIS IS NOT INSURANCE.] Bromfed DM 2 mg-30 mg-10 mg/5 mL syrup RxNorm: 9946180 1 -2 Teaspoon(s) PO Q4H as needed for cough 06/10/2014 06/19/2014 Inactive [SAVINGS FOR UN INSURED PATIENTS -- BIN:349367, PCN: ASPROD1, Group: AME08, ID# [id number], Process claim through Blackboard, for questions: . THIS IS NOT INSURANCE.] Augmentin 875 mg-125 mg tablet RxNorm: 617646 1 Tablet(s) PO Q12H 0 06/10/2014 06/19/2014 Inactive [AttnRPh: Saving apply/adjud icate RxGRP:SG20 RxBIN:[id number] RxPCN: ID#:[id number]] Zocor 40 mg tablet RxNorm: 418211 Tablet(s) 1 TABLET(S ) PO QHS 1 TABLET(S) PO QHS 05/25/2014 08/22/2014 Inactive [AttnRPh: Saving apply/adjudicate RxGRP:SG20 RxBIN:[id number] RxPCN:HT ID#:[id number]] fluoxetine 40 mg capsule RxNorm: 068499 1 Capsule(s) PO QD 04/29/20 14 10/24/2014 Inactive [AttnRPh: Saving apply/adjud icate RxGRP:SG20 RxBIN:[id number] RxPCN:HT ID#:[id number]] diltiazem ER (XR/XT) 240 mg capsule,extended release,control led RxNorm: 647183 1 Capsule(s) PO QD 04/29/2014 10/24/2014 Inactive [AttnRPh: Leonelin g apply/adjudicate RxGRP:SG20 RxBIN:[id number] RxPCN:HT ID#:[id number]] Benicar HCT 40 mg-25 mg tablet RxNorm: 648606 1 Tablet(s) PO QD 09/201310/24/2014 Inactive [AttnRPh: Saving apply/adjud icate RxGRP:SG20 RxBIN:[id number] RxPCN:HT ID#:[id number]] Zocor 40 mg tablet RxNorm: 717999 1 TABLET(S) PO QHS 1 TABLET(S ) PO QHS 03/07/2014 05/25/2014 Inactive [AttnRPh: Saving chelsie ly/adjudicate RxGRP:SG20 RxBIN:[id number] RxPCN:HT ID#:[id number]] Zocor 40 mg tablet RxNorm: 592779 1 Tablet(s) PO QHS 1 TABLET(S ) PO QHS 12/06/2013 03/05/2014 Inactive [AttnRPh: Saving chelsie ly/adjudicate RxGRP:SG20 RxBIN:[id number] RxPCN:HT ID#:[id number]] diltiazem ER (XR/XT) 240 mg capsule,extended release,control led RxNorm: 221370 1 Capsule(s) PO QD 10/25/2013 04/22/2014 Inactive [AttnRPh: Leonelin g apply/adjudicate RxGRP:SG20 RxBIN:[id number] RxPCN:HT ID#:[id number]] fluoxetine 40 mg capsule RxNorm: 771498 1 Capsule(s) PO QD 10/26/19 14 04/22/2014 Inactive [AttnRPh: Saving apply/adjud icate RxGRP:SG20 RxBIN:[id number] RxPCN:HT ID#:[id number]] Zocor 40 mg tablet RxNorm: 152358 1 Tablet(s) PO QHS 1 TABLET(S ) PO QHS 09/13/2013 12/06/2013 Inactive metformin ER 1,000 mg tablet,extended release 24hr RxNorm: 8 85566 Tablet(s) PO TAKE 1 TABLET BY MOUTH TWICE DAILY (REPLACES 500MG DOSE) 07/26/201303/2015 Inactive diltiazem ER (XR/XT) 240 mg capsule,extended release,control led RxNorm: 941741 1 Capsule(s) PO QD 05/03/2013 10/25/2013 Inactive fluoxetine 40 mg capsule RxNorm: 338976 1 Capsule(s) PO QD 05/03/20 13 10/25/2013 Inactive Benicar HCT 40 mg-25 mg tablet RxNorm: 056216 1 Tablet(s) PO QD 01/201304/29/2014 Inactive Zocor 40 mg tablet RxNorm: 568944 1 Tablet(s) PO QHS 12/10/201209/13 Inactive fluoxetine 40 mg capsule RxNorm: 004343 1 Capsule(s) PO QD 11/10/19 13 05/03/2013 Inactive diltiazem ER (XR/XT) 240 mg capsule,extended release,control led RxNorm: 590422 1 Capsule(s) PO QD 11/09/2012 05/03/2013 Inactive Benicar HCT 40 mg-25 mg tablet RxNorm: 127174 1 Tablet(s) PO QD 05/03/2013 Inactive metformin ER 1,000 mg tablet,extended release 24hr RxNorm: 8 92101 Tablet(s) PO TAKE 1 TABLET BY MOUTH TWICE DAILY (REPLACES 500MG DOSE) 08/05/201206/2013 Inactive Zocor 40 mg tablet RxNorm: 688547 1 Tablet(s) PO QHS 06/15/201212/09 Inactive fluoxetine 40 mg capsule RxNorm: 100497 1 Capsule(s) PO QD 05/15/20 12 11/08/2012 Inactive Neurontin 600 mg Tab RxNorm: 640969 1 Tablet(s) PO QHS 12/03/2011 Inactive metformin ER 1,000 mg tablet,extended release 24hr RxNorm: 8 87009 1 Tablet(s) PO BID replaces 500mg dose 12/03/2011 07/26/2013 Inactive Zocor 40 mg tablet RxNorm: 057212 1 Tablet(s) PO QHS 12/03/201106/15 Inactive fluoxetine 20 mg capsule RxNorm: 359867 1 Capsule(s) PO QD 12/03/19 12 05/24/2012 Inactive diltiazem ER (XR/XT) 240 mg capsule,extended release,control led RxNorm: 623781 1 Capsule(s) PO QD 11/15/2011 11/09/2012 Inactive Benicar HCT 40 mg-25 mg tablet RxNorm: 687941 1 Tablet(s) PO QD 02/16/2012 Inactive metformin ER 500 mg 24 hr Tab RxNorm: 181128 1 Tablet(s) PO BID 12/02/2011 Inactive Zocor 40 mg Tab RxNorm: 832321 1 Tablet(s) PO QHS 05/30/2011 11/25/19 12 Inactive fluoxetine 20 mg Cap RxNorm: 254025 1 Capsule(s) PO QD 05/28/2011 Inactive Neurontin 600 mg Tab RxNorm: 759245 1 Tablet(s) PO QHS 05/28/2011 Inactive Neurontin 600 mg Tab RxNorm: 319205 1 Tablet(s) PO QHS 02/22/201106/2011 Inactive Neurontin 600 mg Tab RxNorm: 502251 1 Tablet(s) PO QHS 01/14/2011 Inactive Neurontin 300 mg Cap RxNorm: 465010 1 Capsule(s) PO QHS 01/14/2011 Inactive Neurontin 600 mg Tab RxNorm: 211721 1 Tablet(s) PO QHS 01/14/2011 Inactive Medrol (Vipul) 4 mg Tabs in a Dose Pack RxNorm: 865672 Tablet(s) PO 0 01/02/2011 08/28/2011 Inactive as directed fluoxetine 20 mg Cap RxNorm: 971141 1 Capsule(s) PO QD 12/10/201006/2011 Inactive Zocor 40 mg Tab RxNorm: 755519 1 Tablet(s) PO QHS 12/03/2010 05/29/19 12 Inactive Neurontin 300 mg Cap RxNorm: 092109 1 Capsule(s) PO QHS 12/03/2010 Inactive Septra DS 800 mg-160 mg Tab RxNorm: 352338 1 Tablet(s) PO BID 11/2912/08/2010 Inactive diltiazem ER (XR/XT) 240 mg Continuous Release Cap RxNorm: 8 66629 1 Capsule(s) PO QD 11/20/2010 11/15/2011 Inactive Neurontin 300 mg Cap RxNorm: 906969 1 Capsule(s) PO QHS 11/06/2010 Inactive Neurontin 300 mg Cap RxNorm: 066737 1 Capsule(s) PO QHS 11/06/2010 Inactive Celebrex 200 mg Cap RxNorm: 259766 1 Capsule(s) PO BID 10/24/2010 Inactive fluoxetine 20 mg Cap RxNorm: 483980 1 Capsule(s) PO QD 06/07/201003/2011 Inactive Zocor 40 mg Tab RxNorm: 827902 1 Tablet(s) PO QHS 06/05/2010 12/02/19 Inactive Benicar HCT 40 mg-25 mg Tab RxNorm: 288502 1 Tablet(s) PO QD 200908/21/2011 Inactive Diltiazem 240 mg Continuous Release Cap RxNorm: 779459 1 Capsul e(s) PO QD 11/09/2009 09/02/2018 Inactive Avelox 400 mg Tab RxNorm: 962459 1 Tablet(s) PO QD 08/22/2009 010 Inactive ProAir HFA 90 mcg/actuation aerosol inhaler RxNorm: 376928 2 Puff(s) INH Q4H as needed No Start Date Active tramadol 50 mg tablet RxNorm: 017214 1-2 Tablet(s) PO TID as ne eded for pain No Start Date Active Tylenol Arthritis 650 mg Tab RxNorm: 4178273 2 Tablet(s) PO QD No Sta rt Date Active Celebrex 200 mg Cap RxNorm: 360569 1 Capsule(s) PO BID No Start Date 08/08/2015 Inactive Medrol (Vipul) 4 mg Tabs in a Dose Pack RxNorm: 603389 Tablet(s) PO N o Start Date 01/01/2011 Inactive as directed Promethazine-DM 6.25 mg-15 mg/5 mL Syrup RxNorm: 406700 1-2 Teaspoon(s) PO Q4H prn cough No Start Date 08/28/2011 Inactive Claritin 10 mg tablet RxNorm: 940649 1 Tablet(s) PO QD No Start Date 08/08/2015 Inactive [id number] Oral RxNorm: Oral No Start Da te 03/28/2019 Inactive Breo Ellipta 200 mcg-25 mcg/dose powder for inhalation RxNor m: [id number] 1 Puff(s) INH QD No Start Date 04/09/2017 Inactive metformin 500 mg Tab RxNorm: 061640 1 Tablet(s) PO QD No Start Date 0 08/17/2011 Inactive Diltiazem 240 mg Continuous Release Cap RxNorm: 514590 1 Capsul e(s) PO BID No Start Date 11/08/2009 Inactive fluoxetine 20 mg Cap RxNorm: 248725 1 Capsule(s) PO QD No Start Date 06/07/2010 Inactive Multivitamin & Mineral Formula Oral RxNorm: Oral No Start Da te 03/28/2019 Inactive Medrol (Vipul) 4 mg tablets in a dose pack RxNorm: 829814 Tablet(s) PO as directed No Start Date 05/28/2012 Inactive Fish Oil 1,000 mg Cap RxNorm: 1 Capsule(s) PO QD No Start Date 07/2018 Inactive Nexium 40 mg Cap RxNorm: 944210 1 Capsule(s) PO QD No Start Date 07/24 Inactive fluticasone 50 mcg/actuation nasal spray,suspension RxNorm: 0174888 2 [place] NASAL QD to each nostril No Start Date 08/03/2017 Inactive Viagra 100 mg tablet RxNorm: 115225 1 Tablet(s) PO as needed No Sta rt Date 09/17/2015 Inactive prednisone 20 mg tablet RxNorm: 243473 1 Tablet(s) PO B ID for 4 days then 1 po daily for 4 days No Start Date 11/23/2018 Inactive Benicar HCT 40 mg-25 mg Tab RxNorm: 953649 1 Tablet(s) PO QD No Sta rt [...] Date S ervice Location MICROALBUMIN URINE RANDOM 78475 MICRL MG/L 5.8 MG/L 03/2011 Unknown MICROALBUMIN URINE RANDOM 51659 XM.ALB/CRE 5.2 MG/GCR Unknown MICROALBUMIN URINE RANDOM 49350 CREAT MG/D 111 MG/DL 03/2011 Unknown MICROALBUMIN URINE RANDOM 98492 CRE/100 1.11 G/L 12/24 Unknown Procedures Procedure Codes Date FLU VACC PRSV FREE INC ANTIG 65 AND OLDER CPT-4: 75068 03/04/2019 ADMIN PNEUMOCOCCAL VACCINE CPT-4: G0009 03/04/2019 ADMIN INFLUENZA VIRUS VAC CPT-4: G0008 03/04/2019 FLU VACC PRSV FREE INC ANTIG 65 AND OLDER CPT-4: 58114 03/04/2019 PNEUMOCOCCAL VACC 23 [facility]MON IM CPT-4: 31292 03/04/2019 THER/PROPH/DIAG INJ SC/IM CPT-4: 26511 08/11/2018 TRIAMCINOLONE ACET INJ NOS CPT-4: J3301 08/11/2018 DEXAMETHASONE SODIUM PHOS CPT-4: J1100 08/11/2018 THER/PROPH/DIAG INJ SC/IM CPT-4: 06704 07/16/2018 METHYLPREDNISOLONE INJECTION CPT-4: J2930 07/16/2018 INFLUENZA ASSAY W/OPTIC CPT-4: 02821 07/16/2018 THER/PROPH/DIAG INJ SC/IM CPT-4: 79880 07/13/2018 TRIAMCINOLONE ACET INJ NOS CPT-4: J3301 07/13/2018 THER/PROPH/DIAG INJ SC/IM CPT-4: 52314 05/04/2018 METHYLPREDNISOLONE INJECTION CPT-4: J2930 05/04/2018 FLU VACC PRSV FREE INC ANTIG 65 AND OLDER CPT-4: 38206 02/10/2018 PNEUMOCOCCAL VACC 13 R[facility]MON IM CPT-4: 30647 02/10/2018 ADMIN INFLUENZA VIRUS VAC CPT-4: G0008 02/10/2018 ADMIN PNEUMOCOCCAL VACCINE CPT-4: G0009 02/10/2018 THER/PROPH/DIAG INJ SC/IM CPT-4: 16470 09/09/2017 TRIAMCINOLONE ACET INJ NOS CPT-4: J3301 09/09/2017 ALBUTEROL NON-COMP UNIT CPT-4: J7613 04/10/2017 AIRWAY INHALATION TREATMENT CPT-4: 63524 04/10/2017 PRESCRIP TRANSMIT VIA ERX SY CPT-4: G8553 04/10/2017 FLU VACC PRSV FREE INC ANTIG 65 AND OLDER CPT-4: 14005 03/28/2017 ADMIN INFLUENZA VIRUS VAC CPT-4: G0008 03/28/2017 PRESCRIP TRANSMIT VIA ERX SY CPT-4: G8553 08/27/2016 PRESCRIP TRANSMIT VIA ERX SY CPT-4: G8553 06/14/2016 ALBUTEROL NON-COMP UNIT CPT-4: J7613 06/13/2016 AIRWAY INHALATION TREATMENT CPT-4: 46716 06/13/2016 PRESCRIP TRANSMIT VIA ERX SY CPT-4: [...] CPT-4: G8553 11/07/2014 THER/PROPH/DIAG INJ SC/IM CPT-4: 78646 09/21/2014 METHYLPREDNISOLONE INJECTION CPT-4: J2930 09/21/2014 PRESCRIP TRANSMIT VIA ERX SY CPT-4: G8553 09/21/2014 PRESCRIP TRANSMIT VIA ERX SY CPT-4: G8553 06/10/2014 URINALYSIS NONAUTO W/O SCOPE CPT-4: 07418 06/01/2012 PRESCRIP TRANSMIT VIA ERX SY CPT-4: G8553 05/25/2012 PRESCRIP TRANSMIT VIA ERX SY CPT-4: G8553 12/03/2011 CUR TOBACCO NON-USER CPT-4: G8457 05/30/2011 PRESCRIP TRANSMIT VIA ERX SY CPT-4: G8553 05/30/2011 URINALYSIS NONAUTO W/O SCOPE CPT-4: 54795 01/01/2011 URINE CULTURE/ COLONY COUNT CPT-4: 91353 01/01/2011 CUR TOBACCO NON-USER CPT-4: G8457 01/01/2011 [...] 1: 114/68 Code: 8480-6 BMI: 43.5 Code: 26370-4 Heart Rate 1: 52 bpm Height: 6'1" [...] 1: 136/72 Code: 8480-6 BMI: 42.7 Code: 29477-5 Heart Rate 1: 60 bpm Height: 6'1" Respiratory Rate: 22 bpm SpO2: 95% Tempera ture: 37.1 (C) / 98.7 (F) Weight: 324 lbs 02/10/2018 Blood Pressure 1: 146/78 Code: 8480-6 BMI: 42.4 Code: 86690-6 Heart Rate 1: 64 bpm Height: 6'1" Respiratory Rate: 22 bpm SpO2: 95% Tempera ture: 36.5 (C) / 97.7 (F) Weight: 321 lbs 11/05/2017 Blood Pressure 1: 128/84 Code: 8480-6 BMI: 42.9 Code: 45506-9 Heart Rate 1: 52 bpm Height: 6'1" Respiratory Rate: 22 bpm SpO2: 95% Tempera ture: 36.3 (C) / 97.3 (F) Weight: 325 lbs 09/09/2017 Blood Pressure 1: 162/90 Code: 8480-6 BMI: 42.5 Code: 41739-0 Heart Rate 1: 60 bpm Height: 6'1" Respiratory Rate: 24 bpm SpO2: 95% Tempera ture: 36.4 (C) / 97.6 (F) Weight: 322 lbs 08/07/2017 Blood Pressure 1: 152/90 Code: 8480-6 BMI: 42.2 Code: 54024-4 Heart Rate 1: 60 bpm Height: 6'1" Respiratory Rate: 26 bpm SpO2: 94% Tempera ture: 36.6 (C) / 97.8 (F) Weight: 320 lbs 08/04/2017 Blood Pressure 1: 150/86 Code: 8480-6 BMI: 42.7 Code: 90085-2 Heart Rate 1: 64 bpm Height: 6'1" Respiratory Rate: 20 bpm SpO2: 94% Tempera ture: 36.3 (C) / 97.3 (F) Weight: 324 lbs 06/04/2017 Blood Pressure 1: 164/90 Code: 8480-6 Heart Rate 1: 60 bpm Respiratory Rate: 24 bpm SpO2: 94% Temperature: 36.8 (C) / 98.3 (F) 06/02/2017 Blood Pressure 1: 162/80 Code: 8480-6 BMI: 42.9 Code: 01616-3 Heart Rate 1: 66 bpm Height: 6'1" Respiratory Rate: 22 bpm SpO2: 98% Tempera ture: 36.6 (C) / 97.8 (F) Weight: 325 lbs 05/05/2017 Blood Pressure 1: 164/94 Code: 8480-6 BMI: 41.4 Code: 76024-0 Heart Rate 1: 64 bpm Height: 6'1" Respiratory Rate: 22 bpm SpO2: 95% Tempera ture: 36.4 (C) / 97.5 (F) Weight: 314 lbs 04/10/2017 Blood Pressure 1: 136/78 Code: 8480-6 BMI: 42.0 Code: 93778-9 Heart Rate 1: 76 bpm Height: 6'1" Respiratory Rate: 24 bpm SpO2: 92% Tempera ture: 35.9 (C) / 96.7 (F) Weight: 318 lbs 02/03/2017 Blood Pressure 1: 134/82 Code: 8480-6 BMI: 41.7 Code: 67143-8 Heart Rate 1: 72 bpm Height: 6'1" Respiratory Rate: 24 bpm SpO2: 95% Tempera ture: 36.1 (C) / 97.0 (F) Weight: 316 lbs 10/30/2016 Blood Pressure 1: 126/74 Code: 8480-6 BMI: 41.3 Code: 18956-9 Heart Rate 1: 68 bpm Height: 6'1" Respiratory Rate: 20 bpm Temperature: 37 .1 (C) / 98.8 (F) Weight: 313 lbs 08/30/2016 Blood Pressure 1: 146/80 Code: 8480-6 BMI: 41.7 Code: 74965-0 Heart Rate 1: 64 bpm Height: 6'1" Respiratory Rate: 24 bpm SpO2: 94% Tempera ture: 36.6 (C) / 97.8 (F) Weight: 316 lbs 08/27/2016 Blood Pressure 1: 124/78 Code: 8480-6 Heart Rate 1: 66 bpm Height: 6'2" Respiratory Rate: 18 bpm SpO2: 94% Temperature: 36.6 (C) / 97.8 (F) Weight: 07/02/2016 Blood Pressure 1: 126/78 Code: 8480-6 BMI: 41.4 Code: 00130-9 Heart Rate 1: 68 bpm Height: 6'1" Respiratory Rate: 24 bpm SpO2: 94% Tempera ture: 36.6 (C) / 97.8 (F) Weight: 314 lbs 06/14/2016 Blood Pressure 1: 146/82 Code: 8480-6 Heart Rate 1: 80 bpm Respiratory Rate: 20 bpm SpO2: 95% Temperature: 37.3 (C) / 99.2 (F) 06/13/2016 Blood Pressure 1: 146/84 Code: 8480-6 BMI: 40.5 Code: 08731-9 Heart Rate 1: 66 bpm Height: 6'1" Respiratory Rate: 28 bpm SpO2: 93% Tempera ture: 35.8 (C) / 96.4 (F) Weight: 307 lbs 05/14/2016 Blood Pressure 1: 146/90 Code: 8480-6 BMI: 41.2 Code: 35748-0 Heart Rate 1: 68 bpm Height: 6'1" Respiratory Rate: 26 bpm Temperature: 36 .8 (C) / 98.2 (F) Weight: 312 lbs 04/29/2016 Blood Pressure 1: 152/90 Code: 8480-6 BMI: 41.0 Code: 31080-3 Heart Rate 1: 68 bpm Height: 6'1" Respiratory Rate: 26 bpm SpO2: 94% Tempera ture: 36.1 (C) / 96.9 (F) Weight: 311 lbs 04/22/2016 Blood Pressure 1: 152/94 Code: 8480-6 BMI: 40.9 Code: 10210-5 Heart Rate 1: 68 bpm Height: 6'1" Respiratory Rate: 24 bpm SpO2: 94% Tempera ture: 36.2 (C) / 97.2 (F) Weight: 310 lbs 04/01/2016 Blood Pressure 1: 156/78 Code: 8480-6 BMI: 40.6 Code: 49216-4 Heart Rate 1: 84 bpm Height: 6'1" Respiratory Rate: 22 bpm SpO2: 95% Tempera ture: 37.1 (C) / 98.7 (F) Weight: 308 lbs 11/30/2015 Blood Pressure 1: 142/80 Code: 8480-6 BMI: 40.5 Code: 79320-1 Heart Rate 1: 88 bpm Height: 6'1" Respiratory Rate: 22 bpm Temperature: 36 .2 (C) / 97.2 (F) Weight: 307 lbs 08/29/2015 Blood Pressure 1: 132/70 Code: 8480-6 BMI: 40.0 Code: 58529-6 Heart Rate 1: 76 bpm Height: 6'1" Respiratory Rate: 24 bpm SpO2: 96% Tempera ture: 36.7 (C) / 98.0 (F) Weight: 303 lbs 08/14/2015 Blood Pressure 1: 126/80 Code: 8480-6 BMI: 39.4 Code: 08145-2 Heart Rate 1: 92 bpm Height: 6'1" Respiratory Rate: 24 bpm SpO2: 94% Tempera ture: 37.8 (C) / 100.0 (F) Weight: 299 lbs 08/09/2015 Blood Pressure 1: 146/82 Code: 8480-6 Heart Rate 1: 82 bpm Respiratory Rate: 22 bpm SpO2: 93% Temperature: 35.9 (C) / 96.6 (F) We ight: 310 lbs 05/22/2015 Blood Pressure 1: 156/76 Code: 8480-6 BMI: 41.0 Code: 28505-3 Heart Rate 1: 100 bpm Height: 6'1" Respiratory Rate: 22 bpm Temperature: 37 .2 (C) / 98.9 (F) Weight: 311 lbs 02/13/2015 Blood Pressure 1: 166/90 Code: 8480-6 BMI: 41.2 Code: 65212-1 Heart Rate 1: 72 bpm Height: 6'1" Respiratory Rate: 24 bpm SpO2: 93% Tempera ture: 36.9 (C) / 98.5 (F) Weight: 312 lbs 11/07/2014 Blood Pressure 1: 134/70 Code: 8480-6 BMI: 40.5 Code: 57270-5 Heart Rate 1: 76 bpm Height: 6'1" Respiratory Rate: 24 bpm Temperature: 36 .9 (C) / 98.4 (F) Weight: 307 lbs 10/04/2014 Blood Pressure 1: 144/86 Code: 8480-6 BMI: 40.1 Code: 94690-8 Heart Rate 1: 76 bpm Height: 6'1" Respiratory Rate: 28 bpm Temperature: 36 .6 (C) / 97.9 (F) Weight: 304 lbs 09/22/2014 Blood Pressure 1: 142/80 Code: 8480-6 BMI: 40.0 Code: 02382-7 Heart Rate 1: 80 bpm Height: 6'1" Respiratory Rate: 22 bpm SpO2: 96% Tempera ture: 36.6 (C) / 97.8 (F) Weight: 303 lbs 09/21/2014 Blood Pressure 1: 160/66 Code: 8480-6 BMI: 40.0 Code: 24792-3 Heart Rate 1: 90 bpm Height: 6'1" Respiratory Rate: 26 bpm SpO2: 94% Tempera ture: 35.7 (C) / 96.2 (F) Weight: 303 lbs 06/28/2014 Blood Pressure 1: 132/80 Code: 8480-6 BMI: 41.0 Code: 81631-7 Heart Rate 1: 64 bpm Height: 6' Respiratory Rate: 20 bpm Temperature: 36 .7 (C) / 98.0 (F) Weight: 302 lbs 06/10/2014 Blood Pressure 1: 152/70 Code: 8480-6 BMI: 41.1 Code: 78653-7 Heart Rate 1: 76 bpm Height: 6' Respiratory Rate: 20 bpm Temperature: 36 .6 (C) / 97.8 (F) Weight: 303 lbs 03/29/2014 Blood Pressure 1: 132/78 Code: 8480-6 BMI: 40.6 Code: 94336-2 Heart Rate 1: 84 bpm Height: 6' Respiratory Rate: 22 bpm Temperature: 37 .1 (C) / 98.8 (F) Weight: 299 lbs 11/30/2013 Blood Pressure 1: 136/84 Code: 8480-6 BMI: 39.2 Code: 05700-8 Heart Rate 1: 76 bpm Height: 6' Respiratory Rate: 20 bpm Temperature: 36 .8 (C) / 98.2 (F) Weight: 289 lbs 08/03/2013 Blood Pressure 1: 144/80 Code: 8480-6 Heart Rate 1: 86 bpm Respiratory Rate: 20 bpm Temperature: 36.6 (C) / 97.8 (F) Weight: 296 lbs 04/06/2013 Blood Pressure 1: 142/90 Code: 8480-6 BMI: 40.3 Code: 57876-0 Heart Rate 1: 88 bpm Height: 6' Respiratory Rate: 20 bpm Temperature: 36 .6 (C) / 97.8 (F) Weight: 297 lbs 12/01/2012 Blood Pressure 1: 124/78 Code: 8480-6 BMI: 38.7 Code: 38272-6 Heart Rate 1: 76 bpm Height: 6' Respiratory Rate: 20 bpm Temperature: 37 .2 (C) / 98.9 (F) Weight: 285 lbs 08/04/2012 Blood Pressure 1: 128/80 Code: 8480-6 BMI: 38.2 Code: 91824-4 Heart Rate 1: 76 bpm Height: 6' Respiratory Rate: 20 bpm Temperature: 37 .0 (C) / 98.6 (F) Weight: 282 lbs 05/29/2012 Blood Pressure 1: 138/78 Code: 8480-6 BMI: 36.6 Code: 43901-2 Heart Rate 1: 66 bpm Height: 6' Temperature: 36.7 (C) / 98.1 (F) Weight: 270 lbs 05/25/2012 Blood Pressure 1: 128/72 Code: 8480-6 BMI: 39.9 Code: 18147-2 Heart Rate 1: 74 bpm Height: 6' Temperature: 36.1 (C) / 97.0 (F) Weight: 294 lbs 04/07/2012 Blood Pressure 1: 124/76 Code: 8480-6 BMI: 39.9 Code: 54104-8 Heart Rate 1: 72 bpm Height: 6' Respiratory Rate: 20 bpm Temperature: 36 .9 (C) / 98.5 (F) Weight: 294 lbs 12/16/2011 Blood Pressure 1: 128/80 Code: 8480-6 BMI: 40.8 Code: 63942-6 Heart Rate 1: 74 bpm Height: 6' Temperature: 36.6 (C) / 97.8 (F) Weight: 301 lbs 12/03/2011 Blood Pressure 1: 132/76 Code: 8480-6 BMI: 40.8 Code: 10098-0 Heart Rate 1: 68 bpm Height: 6' Respiratory Rate: 20 bpm Temperature: 36 .8 (C) / 98.2 (F) Weight: 301 lbs 08/29/2011 Blood Pressure 1: 140/68 Code: 8480-6 BMI: 40.8 Code: 49067-0 Heart Rate 1: 80 bpm Height: 6' Respiratory Rate: 20 bpm Temperature: 36 .4 (C) / 97.6 (F) Weight: 301 lbs 05/30/2011 Blood Pressure 1: 134/82 Code: 8480-6 BMI: 41.5 Code: 81795-3 Heart Rate 1: 76 bpm Height: 6' [...] 1: 126/72 Code: 8480-6 BMI: 41.2 Code: 04786-4 Heart Rate 1: 76 bpm Height: 6' [...] 1: 152/90 Code: 8480-6 BMI: 37.7 Code: 28614-7 Heart Rate 1: 92 bpm Height: 6'1" [...] disease with (acute) exacerbation[ICD10: J44.1] Neela Cunningham [employer] CPT- 4: 49639 08/10/2019 ([id number]) OFFICE/OUTPATIENT VISIT EST Diagnosis: Sore on toe[ICD10: L98.9] Neela Cunningham [employer] CPT-4: 93079 07/06/2019 ([id number]) OFFICE/OUTPATIENT VISIT EST Diagnosis: Advanced chronic obstructive pulmonary disease[ICD10: J44.9] 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] Neela HORAN [employer] CPT-4: 85151 05/10/2019 ([id number]) OFFICE/OUTPATIENT VISIT EST Diagnosis: Chronic obstructive pulmonary disease with (acute) exacerbation[ICD10: J44.1] Diagnosis: Hypokalemia[ICD10: E87.6] 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] Neela HYMAN DO [facility] CPT-4: 88861 03/29/2019 ([id number]) NURSE/OUTPATIENT VISIT EST Diagnosis: PNEUMOCOCCAL VACCINE[ICD10: Z23] Neela HYMAN DO [facility] CPT-4: 60970 03/04/2019 ([id number]) OFFICE/OUTPATIENT VISIT EST Diagnosis: Chronic obstructive pulmonary disease with (acute) exacerbation[ICD10: J44.1] Diagnosis: Other nonspecific abnormal finding of lung field[ICD10: R91.8] Neela HYMAN DO [facility] CPT-4: 78750 01/05/2019 ([id number]) OFFICE/OUTPATIENT VISIT EST Diagnosis: Solitary pulmonary nodule[ICD10: R91.1] 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] Diagnosis: Tinea corporis[ICD10: B35.4] Neela HYMAN DO [facility] CPT-4: 04437 12/09/2018 ([id number]) OFFICE/OUTPATIENT VISIT EST Diagnosis: COUGH[ICD10: R05] Diagnosis: Chronic obstructive pulmonary disease, unspecified[ICD10: J44.9] Diagnosis: Other disorders of lung[ICD10: J98.4] Diagnosis: Other nonspecific abnormal finding of lung field[ICD10: R91.8] Neela HYMAN DO [facility] CPT-4: 99410 11/24/2018 ([id number]) OFFICE/OUTPATIENT VISIT EST Diagnosis: Pneumonia, unspecified organism[ICD10: J18.9] Amita Henderson NEELA HYMAN DO [facility] CPT-4: 89203 09/16/2018 ([id number]) OFFICE/OUTPATIENT VISIT EST Diagnosis: Pneumonia, unspecified organism[ICD10: J18.9] Neela HYMAN DO [facility] CPT-4: 26040 09/03/2018 ([id number]) OFFICE/OUTPATIENT VISIT EST Diagnosis: Personal history of pneumonia (recurrent)[ICD10: Z87.01] Diagnosis: Cough[ICD10: R05] Diagnosis: Essential (primary) hypertension[ICD10: I10] Diagnosis: Type 2 diabetes mellitus with hyperglycemia[ICD10: E11.65] Amita Santiago NEELA [employer] [facility] CPT-4: 07107 08/27/2018 OFFICE/OUTPATIENT VISIT EST Diagnosis: Pneumonia, unspecified organism[ICD10: J18.9] Diagnosis: Chronic obstructive pulmonary disease with (acute) exacerbation[ICD10: J44.1] Diagnosis: Other specified symptoms and signs involving the circulatory and respiratory systems[ICD10: R09.89] Diagnosis: Essential (primary) hypertension[ICD10: I10] Amita Santiagodebbie MURILLO [employer]endez [employer] [facility] CPT-4: 92078 08/13/2018 OFFICE/OUTPATIENT VISIT EST Diagnosis: Pneumonia, unspecified organism[ICD10: J18.9] Diagnosis: Other specified symptoms and signs involving the circulatory and respiratory systems[ICD10: R09.89] Amita Santiagodebbie MURILLO [employer]endez [employer] [facility] CPT-4: 63761 08/11/2018 ([id number]) OFFICE/OUTPATIENT VISIT EST Diagnosis: Dyspnea, unspecified[ICD10: R06.00] Diagnosis: Chronic obstructive pulmonary disease with (acute) exacerbation[ICD10: J44.1] Diagnosis: Pneumonia, unspecified organism[ICD10: J18.9] Amita Santiagodebbie MURILLO [employer]endez [employer] [facility] CPT-4: 62513 07/16/2018 ([id number]) OFFICE/OUTPATIENT VISIT EST Diagnosis: Acute bronchitis due to other specified organisms[ICD10: J20.8] Diagnosis: Cough[ICD10: R05] Amita Santiago NEELA Octavio [employer] [facility] T-4: 85047 07/13/2018 ([id number]) OFFICE/OUTPATIENT VISIT EST Diagnosis: Essential (primary) hypertension[ICD10: I10] Diagnosis: Chronic obstructive pulmonary disease, unspecified[ICD10: J44.9] Diagnosis: Type 2 diabetes mellitus with hyperglycemia[ICD10: E11.65] Diagnosis: Mixed hyperlipidemia[ICD10: E78.2] Neela STERLING [employer]endez [employer] [facility] CPT-4: 65927 06/03/2018 ([id number]) OFFICE/OUTPATIENT VISIT EST Diagnosis: Chronic obstructive pulmonary disease, unspecified[ICD10: J44.9] Gely HYMAN DO [facility] CPT-4: 19840 05/04/2018 ([id number]) OFFICE/OUTPATIENT VISIT EST Diagnosis: Essential (primary) hypertension[ICD10: I10] Diagnosis: Localized edema[ICD10: R60.0] Neela HYMAN DO [facility] CPT-4: 70558 03/03/2018 ([id number]) OFFICE/OUTPATIENT VISIT EST Diagnosis: Localized edema[ICD10: R60.0] Neela HYMAN DO [facility] CPT-4: 08061 02/17/2018 ([id number]) OFFICE/OUTPATIENT VISIT EST Diagnosis: FLU VACCINE[ICD10: Z23] Diagnosis: PNEUMOCOCCAL VACCINE[ICD10: Z23] Diagnosis: Type 2 diabetes mellitus without complications[ICD10: E11.9] Diagnosis: Mixed hyperlipidemia[ICD10: E78.2] Diagnosis: Essential (primary) hypertension[ICD10: I10] Diagnosis: Localized edema[ICD10: R60.0] Diagnosis: Chronic obstructive pulmonary disease, unspecified[ICD10: J44.9] Neela HYMAN DO [facility] CPT-4: 36164 02/10/2018 ([id number]) OFFICE/OUTPATIENT VISIT EST Diagnosis: Type 2 diabetes mellitus with hyperglycemia[ICD10: E11.65] Diagnosis: Mixed hyperlipidemia[ICD10: E78.2] Diagnosis: Essential (primary) hypertension[ICD10: I10] Diagnosis: Chronic obstructive pulmonary disease, unspecified[ICD10: J44.9] Diagnosis: Cutaneous abscess of back [any part, except buttock][ICD10: L02.212] Neela HYMAN DO [facility] CPT-4: 06562 11/05/2017 ([id number]) OFFICE/OUTPATIENT VISIT EST Diagnosis: Allergic urticaria[ICD10: L50.0] Gely HYMAN DO [facility] CPT-4: 56544 09/09/2017 ([id number]) OFFICE/OUTPATIENT VISIT EST Diagnosis: Generalized enlarged lymph nodes[ICD10: R59.1] Diagnosis: Acute gastritis without bleeding[ICD10: K29.00] Gely HYMAN DO [facility] CPT-4: 51662 08/07/2017 ([id number]) OFFICE/OUTPATIENT VISIT EST Diagnosis: Type 2 diabetes mellitus without complications[ICD10: E11.9] Diagnosis: Mixed hyperlipidemia[ICD10: E78.2] Diagnosis: Essential (primary) hypertension[ICD10: I10] Neela HYMAN [facility] CPT-4: 37713 08/04/2017 ([id number]) OFFICE/OUTPATIENT VISIT EST Diagnosis: Zoster without complications[ICD10: B02.9] Diagnosis: Acute sialoadenitis[ICD10: K11.21] Gely HYMAN DO [facility] CPT-4: 58114 06/04/2017 OFFICE/OUTPATIENT VISIT EST Diagnosis: Zoster without complications[ICD10: B02.9] Diagnosis: Acute sialoadenitis[ICD10: K11.21] Gely HYMAN [facility] CPT-4: 28941 06/02/2017 ([id number]) OFFICE/OUTPATIENT VISIT EST Diagnosis: Type 2 diabetes mellitus without complications[ICD10: E11.9] Diagnosis: Mixed hyperlipidemia[ICD10: E78.2] Diagnosis: Essential (primary) hypertension[ICD10: I10] Diagnosis: Chronic obstructive pulmonary disease, unspecified[ICD10: J44.9] Neela HYMAN [facility] CPT-4: 59855 05/05/2017 OFFICE/OUTPATIENT VISIT EST Diagnosis: Chronic obstructive pulmonary disease with acute lower respiratory infection[ICD10: J44.0] Diagnosis: Impacted cerumen, bilateral[ICD10: H61.23] Gely HYMAN [facility] CPT-4: 82971 04/10/2017 ([id number]) OFFICE/OUTPATIENT VISIT EST Diagnosis: FLU VACCINE[ICD10: Z23] Neela BUI [facility] CPT-4: 19474 03/28/2017 ([id number]) OFFICE/OUTPATIENT VISIT EST Diagnosis: Type 2 diabetes mellitus without complications[ICD10: E11.9] Diagnosis: Mixed hyperlipidemia[ICD10: E78.2] Diagnosis: Essential (primary) hypertension[ICD10: I10] Diagnosis: Chronic obstructive pulmonary disease, unspecified[ICD10: J44.9] Neela HYMAN DO [facility] CPT-4: 48907 02/03/2017 ([id number]) OFFICE/OUTPATIENT VISIT EST Diagnosis: Type 2 diabetes mellitus with hyperglycemia[ICD10: E11.65] Diagnosis: Mixed hyperlipidemia[ICD10: E78.2] Diagnosis: Essential (primary) hypertension[ICD10: I10] Diagnosis: Chronic obstructive pulmonary disease, unspecified[ICD10: J44.9] Neela HYMAN [employer] [facility] CPT-4: 73884 10/30/2016 ([id number]) NO CHARGE Diagnosis: Acute bronchitis, unspecified[ICD10: J20.9] Sammi HYMAN [employer] [facility] CPT-4: 78189 08/30/2016 ([id number]) OFFICE/OUTPATIENT VISIT EST Diagnosis: Acute bronchitis, unspecified[ICD10: J20.9] Diagnosis: Other seasonal allergic rhinitis[ICD10: J30.2] Sammi HYMAN [employer] [facility] CPT-4: 61252 08/27/2016 ([id number]) OFFICE/OUTPATIENT VISIT EST Diagnosis: Type 2 diabetes mellitus without complications[ICD10: E11.9] Diagnosis: Mixed hyperlipidemia[ICD10: E78.2] Diagnosis: Essential (primary) hypertension[ICD10: I10] Neela HYMAN [employer] [facility] CPT-4: 93563 07/02/2016 ([id number]) OFFICE/OUTPATIENT VISIT EST Diagnosis: Acute bronchitis, unspecified[ICD10: J20.9] Sammi HYMAN [employer] [facility] CPT-4: 59718 06/14/2016 ([id number]) OFFICE/OUTPATIENT VISIT EST Diagnosis: Acute bronchitis, unspecified[ICD10: J20.9] Sammi MIRZALINE Octavio HYMAN DO [facility] CPT-4: 08514 06/13/2016 ([id number]) OFFICE/OUTPATIENT VISIT EST Diagnosis: Essential (primary) hypertension[ICD10: I10] Neela HYMAN DO [facility] CPT-4: 16620 05/14/2016 ([id number]) OFFICE/OUTPATIENT VISIT EST Diagnosis: Essential (primary) hypertension[ICD10: I10] Neela HYMAN DO [facility] CPT-4: 97639 04/29/2016 ([id number]) OFFICE/OUTPATIENT VISIT EST Diagnosis: Unspecified abdominal pain[ICD10: R10.9] Diagnosis: Left lower quadrant pain[ICD10: R10.32] Diagnosis: Left upper quadrant pain[ICD10: R10.12] Diagnosis: Essential (primary) hypertension[ICD10: I10] Neela HYMAN DO [facility] CPT-4: 49829 04/22/2016 ([id number]) OFFICE/OUTPATIENT VISIT EST Diagnosis: Type 2 diabetes mellitus without complications[ICD10: E11.9] Diagnosis: Mixed hyperlipidemia[ICD10: E78.2] Diagnosis: Essential (primary) hypertension[ICD10: I10] Neela HYMAN DO [facility] CPT-4: 40331 04/01/2016 ([id number]) OFFICE/OUTPATIENT VISIT EST Diagnosis: Type 2 diabetes mellitus with hyperglycemia[ICD10: E11.65] Diagnosis: Mixed hyperlipidemia[ICD10: E78.2] Diagnosis: Essential (primary) hypertension[ICD10: I10] Neela HYMAN DO [facility] CPT-4: 54379 11/30/2015 ([id number]) OFFICE/OUTPATIENT VISIT EST Diagnosis: Type 2 diabetes mellitus with diabetic neuropathy, unspecified[ICD10: E11.40] Diagnosis: Essential (primary) hypertension[ICD10: I10] Diagnosis: Mixed hyperlipidemia[ICD10: E78.2] Neela HYMAN DO [facility] CPT-4: 76225 08/29/2015 ([id number]) OFFICE/OUTPATIENT VISIT EST Diagnosis: COUGH[ICD10: R05] Diagnosis: Wheezing[ICD10: R06.2] Diagnosis: Type 2 diabetes mellitus with diabetic neuropathy, unspecified[ICD10: E11.40] Neela HYMAN DO [facility] CPT-4: 15034 08/14/2015 ([id number]) OFFICE/OUTPATIENT VISIT EST Diagnosis: Other seasonal allergic rhinitis[ICD10: J30.2] Diagnosis: Dyspnea, unspecified[ICD10: R06.00] Diagnosis: Wheezing[ICD10: R06.2] Sammi MIRZALINE Octavio HYMAN DO [facility] CPT-4: 74457 08/09/2015 ([id number]) OFFICE/OUTPATIENT VISIT EST Diagnosis: Essential (primary) hypertension[ICD10: I10] Diagnosis: Type 2 diabetes mellitus with hyperglycemia[ICD10: E11.65] Diagnosis: Mixed hyperlipidemia[ICD10: E78.2] Neelasabina Paulinna SETHJYOTIRYAN ASHER [employer] [facility] CPT-4: 75908 05/22/2015 ([id number]) OFFICE/OUTPATIENT VISIT EST Diagnosis: 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] Diagnosis: - I - HYPERTENSION[ICD9: 401.9] Diagnosis: - I - HYPERLIPIDEMIA NEC/NOS[ICD9: 272.4] Diagnosis: Left hand paresthesia[ICD9: 782.0] Neela STERLING [employer] [facility] CPT-4: 46006 02/13/2015 ([id number]) OFFICE/OUTPATIENT VISIT EST Diagnosis: HYPERLIPIDEMIA NEC/NOS[ICD9: 272.4] Diagnosis: 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] Neela Orendinna MIRZANEELA Octavio HYMAN [employer] CPT-4: 10816 11/07/2014 ([id number]) OFFICE/OUTPATIENT VISIT EST Diagnosis: ALLERGIC RHINITIS[ICD9: 477.9] Diagnosis: WHEEZING[ICD9: 786.07] Neela ANNQUELINE JulissaMendez ABY Zaarly CPT-4: 63705 10/04/2014 ([id number]) OFFICE/OUTPATIENT VISIT EST Diagnosis: BRONCHITIS, ACUTE[ICD9: 466.0] Diagnosis: WHEEZING[ICD9: 786.07] Loren MURILLO JulissaMendez ABY [facility] CPT-4: 09878 09/22/2014 ([id number]) OFFICE/OUTPATIENT VISIT EST Diagnosis: DYSPNEA[ICD9: 786.09] Diagnosis: WHEEZING[ICD9: 786.07] Diagnosis: Arrhythmia[ICD9: 427.9] Loren Gaytanakosua MIRZALINE JulissaMendez [facility] CPT-4: 42299 09/21/2014 ([id number]) OFFICE/OUTPATIENT VISIT EST Diagnosis: DM W/O COMPLICATION TYPE II, 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] Diagnosis: - I - HYPERLIPIDEMIA NEC/NOS[ICD9: 272.4] Diagnosis: - I - HYPERTENSION[ICD9: 401.9] Neela MURILLO JulissaMendez [facility] CPT-4: 59244 06/28/2014 OFFICE/OUTPATIENT VISIT EST Diagnosis: SINUSITIS, ACUTE[ICD9: 461.9] Diagnosis: OTITIS MEDIA NOS[ICD9: 382.9] Sarah MURILLO JulissaMendez [facility] CPT-4: 65001 06/10/2014 ([id number]) OFFICE/OUTPATIENT VISIT EST Diagnosis: 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] Diagnosis: - I - HYPERLIPIDEMIA NEC/NOS[ICD9: 272.4] Diagnosis: - I - HYPERTENSION[ICD9: 401.9] Neela Sergechristina MURILLO [facility]Mendez [facility] CPT-[facility]: 31970 03/29/2014 ([id number]) OFFICE/OUTPATIENT VISIT EST Diagnosis: 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] Diagnosis: - I - HYPERTENSION[ICD9: 401.9] Diagnosis: - I - HYPERLIPIDEMIA NEC/NOS[ICD9: 272.4] Diagnosis: Hand lesion[ICD9: 709.9] Neela DOS SANTOS [facility] CPT-4: 15218 11/30/2013 ([id number]) OFFICE/OUTPATIENT VISIT EST Diagnosis: 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] Diagnosis: HYPERLIPIDEMIA NEC/NOS[ICD9: 272.4] Diagnosis: HYPERTENSION[ICD9: 401.9] Neela Cunningham [facility] CPT-4: 15328 08/03/2013 ([id number]) OFFICE/OUTPATIENT VISIT EST Diagnosis: DM W/O COMPLICATION TYPE II, 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] Diagnosis: HYPERTENSION[ICD9: 401.9] Diagnosis: HYPERLIPIDEMIA NEC/NOS[ICD9: 272.4] Neela LAWLERNDER [facility] CPT-4: 38151 04/06/2013 ([id number]) OFFICE/OUTPATIENT VISIT EST Diagnosis: 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] Diagnosis: HYPERLIPIDEMIA NEC/NOS[ICD9: 272.4] Diagnosis: HYPERTENSION[ICD9: 401.9] Neela VASQUEZ [facility] CPT-4: 88102 12/01/2012 ([id number]) OFFICE/OUTPATIENT VISIT EST Diagnosis: 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] Diagnosis: HYPERTENSION[ICD9: 401.9] Diagnosis: HYPERLIPIDEMIA NEC/NOS[ICD9: 272.4] Neela HYMAN [facility] CPT-4: 03624 08/04/2012 ([id number]) OFFICE/OUTPATIENT VISIT EST Diagnosis: URINARY FREQUENCY[ICD9: 788.41] Neela CostaMendez [facility] CPT-4: 33462 06/01/2012 OFFICE/OUTPATIENT VISIT EST Diagnosis: Agitation[ICD9: 307.9] Diagnosis: Frequent urination[ICD9: 788.41] Janet MURILLO JulissaMendez [facility] CPT-4: 68221 05/29/2012 OFFICE/OUTPATIENT VISIT EST Diagnosis: SINUSITIS, ACUTE[ICD9: 461.9] Diagnosis: OTALGIA[ICD9: 388.70] Neela CostaMendez [facility] CPT-4: 35862 05/25/2012 OFFICE/OUTPATIENT VISIT EST Diagnosis: DM W/O COMPLICATION TYPE II, 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] Diagnosis: HYPERTENSION[ICD9: 401.9] Diagnosis: HYPERLIPIDEMIA NEC/NOS[ICD9: 272.4] Neeladano GREGORIO SMendez [facility] CPT-4: 00056 04/07/2012 OFFICE/OUTPATIENT VISIT EST Diagnosis: FINGER INJURY[ICD9: 959.5] Janet Cunningham [facility] CPT-4: 61916 12/16/2011 ([id number]) OFFICE/OUTPATIENT VISIT EST Diagnosis: DM W/O COMPLICATION TYPE II, 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] Diagnosis: HYPERTENSION[ICD9: 401.9] Diagnosis: HYPERLIPIDEMIA NEC/NOS[ICD9: 272.4] Neela Sergegemmainna HERMESYesenia GREGORIO S. ORENDER DO [facility] CPT-4: 31993 12/03/2011 ([id number]) OFFICE/OUTPATIENT VISIT EST Diagnosis: 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] Diagnosis: HYPERLIPIDEMIA NEC/NOS[ICD9: 272.4] Diagnosis: HYPERTENSION[ICD9: 401.9] Neela MURILLO S. ORE NDER DO [facility] CPT-4: 30005 08/29/2011 OFFICE/OUTPATIENT VISIT EST Diagnosis: 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] Diagnosis: HYPERLIPIDEMIA NEC/NOS[ICD9: 272.4] Diagnosis: HYPERTENSION[ICD9: 401.9] Neela Cunningham ORE NDER DO [facility] CPT-4: 90817 05/30/2011 OFFICE/OUTPATIENT VISIT EST Diagnosis: SKIN SENSATION DISTURB[ICD9: 782.0] Neela GREGORIO S. ORENDER DO [facility] CPT-4: 01818 01/29/2011 OFFICE/OUTPATIENT VISIT EST Diagnosis: SKIN SENSATION DISTURB[ICD9: 782.0] Neela Sergechristina CROOK DARLINE S. ORENDER DO [facility] CPT-4: 32318 01/14/2011 OFFICE/OUTPATIENT VISIT EST Neela Sergegemmainna MIRZANEELA S. ORE NDER DO [facility] CPT- 4: 65641 01/01/2011 OFFICE/OUTPATIENT VISIT EST Neela MURILLO S. ORE NDER DO [facility] CPT- 4: 24702 11/29/2010 ([id number]) OFFICE/OUTPATIENT VISIT EST Neela Sergechristina HORAN S. ORENDER DO [facility] CPT-4: 14426 08/28/2010 ([id number]) OFFICE/OUTPATIENT VISIT, EST Neela WILDE S. ORENDER DO [facility] CPT-4: 32771 06/05/2010 ([id number]) OFFICE/OUTPATIENT VISIT, EST Neela WILDE S. ORENDER DO [facility] CPT-4: 53643 02/05/2010 ([id number]) OFFICE/OUTPATIENT VISIT, [facility] CPT-4: 85905 10/09/2009 ([id number]) OFFICE/OUTPATIENT VISIT, EST Neela HYMAN DO [facility] CPT-4: 07874 08/22/2009 Plan of Care Planned Activity Notes [...] : J44.1 08/10/2019 Appointment: Neela Hyman WPtel: [address] [place] [address] ACUTE ILLNESS 08/10/2019 Visit Diagnosis Plan: Sore on toe Discussion: Keep farhat an/dry Keflex Notify if worsens ICD-9 : 709.9 ICD-10 : L98.9 07/06/2019 Appointment: Neela Hyman WPtel: [address] [place] [address] ACUTE ILLNESS 07/06/2019 Patient Education: Jaskaran- [employer] [phone] https://www.[employer]/Pod Inns/resources/getResource/61/1en098af-[email or web address] Completed 07/06/2019 Visit Diagnosis Plan: Lymphoma involving lung Discussi on: Doing weekly lab and chemo ICD-9 : 202.82 ICD-10 : C85.99 05/10/2019 Visit Diagnosis Plan: Advanced chronic obstructive pul monary disease Discussion: Continue oxygen and pulmonary rehab Follow Up: 3 months ICD-9 : 496 ICD-10 : J44.9 05/10/2019 Appointment: Neela Hyman WPtel: [address] [place], [place] [address] FOLLOW UP 05/10/2019 Appointment: Neela Hyman WPtel: [address] [place], [place] [phone] he called 04/14/19-- he was at physical [...] : C85.99 03/29/2019 Appointment: Neela Hyman WPtel: [address] [place] [address] Hospital Follow Up 03/29/2019 Appointment: Neela Hyman WPtel: [address] [place], [place] [phone] [place] INJECTION 03/04/2019 Visit Diagnosis Plan: Chronic obstructiv e pulmonary disease with (acute) exacerbation Discussion: Increase SVNS with duoneb to QID Prednisone taper ICD-9 : 491.21 ICD-10 : J44.1 01/05/2019 Visit Diagnosis Plan: Other nonspecific abnormal findi ng of lung field Discussion: Referral to pulmonology--will likely need bronchoscopy--path results discussed ICD-9 : 786.6 ICD-10 : R91.8 01/05/2019 Appointment: Neela Hyman WPtel: [address] [place] [address] FOLLOW UP 01/05/2019 Patient Education: prednisone- [employer] Coupon [phone] https://www.[employer]/samplemd/resources/getResource/61/[email or web address]-9r26-zf Completed 01/05/2019 Care Plan: Referral Order SNOMED-CT : 30 [id number] Pending 01/05/2019 Appointment: Neela Hyman WPtel: [address] [place] [address] [place] CANCELED 12/21/2018 Visit Diagnosis Plan: Solitary pulmonary nodule Discus esmer: CT guided needle biopsy of RUL lung mass ICD-9 : 793.11 ICD-10 : R91.1 12/09/2018 Visit Diagnosis Plan: Tinea corporis Discussion: Diflu can--hold simvastatin and fenofibrate while taking ICD-9 : 110.5 ICD-10 : B35.4 12/09/2018 Appointment: Neela Hyman WPtel: [address] [place] [address] [place] FOLLOW UP 12/09/2018 Appointment: Gely Harp [address] [place] [address] [place] NO SHOW 12/01/2018 Visit Diagnosis Plan: [...] : J98.4 11/24/2018 Appointment: Neela Hyman WPtel: [address] [place] [address] [place] FOLLOW UP 11/24/2018 Care Plan: PET IMAGE FULL BODY LOINC : 4 2711-2 Pending 11/24/2018 Appointment: Neela Hyman WPtel: [address] [place] [address] [place] Consult 09/21/2018 Visit Diagnosis Plan: Pneumonia, unspecified organism Discussion: Patient clinically improved. Recent CT scan from 09/07 showed unresolved right upper lobe pneumonia. Finished another 7 days of levaquin. Will repeat CBC early next week. Order sent with patient to get done at [facility]. FU CT recommended in 4 weeks. Patient states understanding. ICD-9 : 486 ICD-10 : J18.9 09/16/2018 Appointment: Amita Henderson [facility] [employer] [facility] FOLLOW UP 09/16/2018 Visit Diagnosis Plan: Pneumonia, unspecified organism Discussion: Clinically patient feels and looks much better but need CT scan of chest due to ongoing round pneumonia in association with his known lymphoma ICD-9 : 486 ICD-10 : J18.9 09/03/2018 Appointment: Neela Hyman WPtel: [id number] FOLLOW UP 09/03/2018 Care Plan: CT THORAX [...] : I10 08/27/2018 Appointment: Amita Henderson [id number] FO[facility] UP 08/27/2018 Visit Diagnosis Plan: Chronic [...] ICD-10 : R09.89 08/13/2018 Appointment: Amita Henderson [facility] [employer] [id number] [facility] FOLLOW UP 08/13/2018 Appointment: Amita Henderson [facility] [employer] [id number] CANCELED 08/13/2018 Patient Education: prednisone- [employer] Coupon [phone] https://www.[employer]/Pod Inns/resources/getResource/61/hk70nf0w-4f67-9rt5-5h Completed 08/13/2018 Visit Diagnosis Plan: Other specified [...] : J18.9 08/11/2018 Appointment: Amita Henderson [facility] [employer] [id number] ACUTE ILLNESS 08/11/2018 Care Plan: CHEST X-RAY 2VW FRONTAL&LATL LOINC : 78615-2 Pending 07/20/2018 Visit Diagnosis Plan: Dyspnea, unspecified Discussion: CXR- to be completed at the hospital. Will call with results and any adjustments in plan. Solumedrol 125 administered in clinic Prednisone 20 mg BID x 5 days- start tomorrow ICD-9 : 786.09 ICD-10 : R06.00 07/16/2018 Appointment: Amita Henderson [address] [place] [address] ACUTE ILLNESS 07/16/2018 Patient Education: prednisone- [employer] Coupon [phone] https://www.[employer] In[employer].zumatek/sampleQUALIA (formerly known [employer])/resources/getResource/61/16c2v7vl-cs12-8pq7-r2 Completed 07/16/2018 Visit Diagnosis Plan: Acute bronchitis due to other sp ecified organisms Discussion: Kenalog 40 mg IM administered in clinic. Doxycycline called into [facility]. Take as directed. Continue nebulizer and Trelegy. Follow up if symptoms are not improving with treatment regimen. Patient states understanding of all instruction. ICD-9 : 466.0 ICD-10 : J20.8 07/13/2018 Appointment: Amita Henderson [address] [place], [place] [phone] ACUTE ILLNESS 07/13/2018 Patient Education: doxycycline hyclate- [employer] Cou saritha [phone] https://www.[employer] In[employer]/samplemd/resources/getResource/61/0m668o77-4s0d-2747-4d Completed 07/13/2018 Care Plan: [place] : [address]-3 Pending 07/13/2018 Care Plan: CBC Pending 07/13/2018 Care Plan: A1C HPLC LOINC : 99491-6 Pending 07/13/2018 Visit Diagnosis Plan: Mixed hyperlipidemia [...] : J44.9 06/03/2018 Appointment: Neela Hyman WPtel: [address] [place] [address] FOLLOW UP 06/03/2018 Visit Diagnosis Plan: Chronic [...] : J44.9 05/04/2018 Appointment: Gely Harp [address] [place] [address] ACUTE ILLNESS 05/04/2018 Visit Diagnosis Plan: Localized edema Discussion: Cont inue lasix and potassium at every other day Recheck lab and fwup in 3mos Follow Up: 3 months ICD-9 : 782.3 ICD-10 : R60.0 03/03/2018 Appointment: Neela Hyman WPtel: [address] [place] [address] FOLLOW UP 03/03/2018 Patient Education: Patient Medication Summary Completed 03/03/2018 Visit Diagnosis Plan: Localized edema Discussion: Finch ge lasix and potassium to every other day Check Chem 7 in 2 weeks and fwup ICD-9 : 782.3 ICD-10 : R60.0 02/17/2018 Appointment: Neela Hyman WPtel: [address] [place] [address] FOLLOW UP 02/17/2018 Patient Education: Patient Medication [...] E78.2 02/10/2018 Appointment: Neela Hyman WPtel: [address] [facility] [place] FOLLOW UP 02/10/2018 Patient Education: Patient [...] I10 11/05/2017 Appointment: Neela Hyman WPtel: [address] [facility] [place] FOLLOW UP 11/05/2017 Patient Education: Patient Medication Summary Completed 11/05/2017 Patient Education: Patient Medication Summary Completed 11/03/2017 Care Plan: [facility]OLIC [facility]EL [facility] : 14872-7 Pending 11/03/2017 Care Plan: LIPID PANEL LOINC : 69097-3 Pending 11/03/2017 Care Plan: CBC Pending 11/03/2017 Care Plan: A1C HPLC LOINC : 36816-0 Pending 11/03/2017 Visit Diagnosis Plan: Allergic urticaria [...] ICD-10 : L50.0 09/09/2017 Appointment: Gely Harp [address] [place], [place] [id number] ACUTE ILLNESS 09/09/2017 Patient Education: Patient Medication [...] ICD-10 : K29.00 08/07/2017 App[facility]ment[facility] [facility] 08/07/2017 Patient Education: Patient Medication Summary Completed 08/07/2017 Visit Diagnosis Plan: Essential (primary) hypertension Discussion: Increase Cardizem CD to 360mg daily ICD-9 : 401.9 ICD-10 : I10 08/04/2017 Visit Diagnosis Plan: Type 2 diabetes mellitus without complications Discussion: Accuchecks daily Lab discussed Continue current meds ICD-9 : 250.00 ICD-10 : E11.9 08/04/2017 Appointment: Neela Hyman WPtel: [id number] FOLLOW UP 08/04/2017 Patient Education: Patient Medication Summary Completed 08/04/2017 Patient Education: Patient Medication Summary Completed 07/31/2017 Care Plan: [place] : 13[address]-6 Pending 07/31/2017 Care Plan: ASSAY THYROID STIM HORMONE Pen ding 07/31/2017 Care Plan: LIPID PANEL LOINC : 55068-8 Pending 07/31/2017 Care Plan: CBC Pending 07/31/2017 Care Plan: A1C HPLC LOINC : 02776-5 Pending 07/31/2017 Patient Education: Patient Medication Summary Completed 06/19/2017 Patient Education: Patient Medication Summary Completed 06/09/2017 Care Plan: CT SOFT TISSUE [place] : [address]-2 Pending 06/09/2017 Visit Diagnosis Plan: Acute sialoadenitis [...] ICD-10 : B02.9 06/04/2017 Appointment: Gely Harp [address] [place], [place] [id number] ACUTE ILLNESS 06/04/2017 Patient Education: Patient Medication [...] : B02.9 06/02/2017 Appointment: Gely Harp [address] [facility] ACUTE ILLNESS 06/02/2017 Patient Education: Patient Medication [...] E78.2 05/05/2017 Appointment: Neela Hyman WPtel: [address] [facility] FOLLOW UP 05/05/2017 Patient Education: Patient Medication Summary Completed 05/05/2017 Patient Education: Patient Medication Summary Completed 05/01/2017 Care Plan: A1C HPLC [facility] : 12740-0 Pending 05/01/2017 Visit Diagnosis Plan: Chronic obstructiv [...] : H61.23 04/10/2017 Appointment: Gely Harp [address] [facility] ACUTE ILLNESS 04/10/2017 Patient Education: Patient Medication Summary Completed 04/10/2017 Appointment: Neela Hyman WPtel: [facility] [facility] INJECTION 03/28/2017 Patient Education: Patient Medication [...] : I10 02/03/2017 Appointment: Neela Hyman WPtel: [address] [place], [place] [phone] [place] FOLLOW UP 02/03/2017 Patient Education: Patient Medication Summary Completed 02/03/2017 Patient Education: Patient Medication Summary Completed 01/30/2017 Care Plan: COMPREH[place] : 91927-3 Pending 01/30/2017 Care Plan: LIPID PANEL LOINC : 72813-5 Pending 01/30/2017 Care Plan: CBC Pending 01/30/2017 Care Plan: A1C HPLC LOINC : 43582-8 Pending 01/30/2017 Care Plan: ASSAY OF PSA [...] : J44.9 10/30/2016 Appointment: Neela Hyman WPtel[facility] [facility] 10/29 lm ~sl 6/7 confirmed~sl FOLLOW UP 11/2016 Patient Education: Patient Medication Summary Completed 10/30/2016 Patient Education: Patient Medication Summary Completed 10/24/2016 Visit Diagnosis Plan: Acute bronchitis, unspecified Di scussion: Patient sounds and looks much improved Continue current regimen Keep appt with Dr Levi for Friday Follow up PRN ICD-9 : 466.0 ICD-10 : J20.9 08/30/2016 Appointment: Sammi Najera [address] [facility] [place] 08/29 rang and rang rang 08/30 rang [...] ICD-10 : J20.9 08/27/2016 Appointment: Sammi Najera [address] [place], [place] [address] FOLLOW UP 08/27/2016 Patient Education: Patient Medication Summary Completed 08/27/2016 Care Plan: Referral Order SNOMED-CT : 30 [id number] Pending 08/27/2016 Visit Diagnosis Plan: Type 2 [...] : E78.2 07/02/2016 Appointment: Neela Hyman WPtel: [address] [place], [place] [address] 07/01 rang and rang` FOLLOW UP 7 Patient Education: Patient Medication Summary Completed 07/02/2016 Patient Education: Patient Medication Summary Completed 06/27/2016 Care Plan: LIPID PANEL LOINC : 80394-9 Pending 06/27/2016 Care Plan: COMPREH[place] : 23503-9 Pending 06/27/2016 Care Plan: A1C HPLC LOINC : 14302-7 Pending 06/27/2016 Visit Diagnosis Plan: Acute bronchitis, [...] ICD-10 : J20.9 06/14/2016 Appointment: Sammi Najera [address] [place] [address] FOLLOW UP 06/14/2016 Patient Education: Patient Medication [...] : J20.9 06/13/2016 Appointment: Sammi Najera [address] [place], [place] [address] ACUTE ILLNESS 06/13/2016 Patient Education: Patient Medication Summary Completed 06/13/2016 Care Plan: CHEST X-RAY 2VW FRONTAL&LATL LOINC : 52604-6 Pending 06/13/2016 Visit Plan: Increase metoprolol to 100mg po BID BP readings and BP check in 1month 05/14/2016 Appointment: Neela Hyman WPtel: [address] [place], [place] [phone] 05/13 rang and rang`sl FOLLOW UP 6 Patient Education: Patient Medication Summary Completed 05/14/2016 Visit Plan: Increase metoprolol to 50mg BID BP check in 1 week f/u BP appt 2 weeks consider musculoskeletal if pain returns 04/29/2016 Appointment: Neela Hyman WPtel: [address] [place], [place] [phone] 04/25 confimred~sl FOLLOW UP 04/29/2016 Patient Education: Patient Medication Summary Completed 04/29/2016 Visit Plan: Stat CT scan of abdomen/pelv is to look for stone Hydrate and use tramadol prn Increase metoprolol to 25mg po BID Will see urology pending CT scan results 04/22/2016 Appointment: Neela Hyman WPtel: [address] [place], [place] [phone] 04/17 confirmed-sp ACUTE ILLNESS 04/22/2016 Patient Education: [...] flu shot 04/01/2016 Appointment: Neela Hyman WPtel: [address] [place], [place] [phone] [place] FOLLOW UP 04/01/2016 Patient Education: Patient Medication Summary Completed 04/01/2016 Patient Education: [facility] - Saving AutoInj - 18-64 - Dynamic Heber l ID Completed 04/01/2016 Patient Education: Patient Medication Summary Completed 03/28/2016 Care Plan: A1C HPLC LOINC : 56550-6 Pending 03/28/2016 Care Plan: [place] : 595[address]-8 Pending 03/28/2016 Visit Plan: Lab discussed Continue curre nt meds Accuchecks daily 11/30/2015 Appointment: Neela Hyman WPtel: [address] [place], [place] [phone] 11/28 confirmed~sl FOLLOW UP 11/30/2015 Patient Education: Patient Medication Summary Completed 11/30/2015 Appointment: Neela Hyman WPtel: [address] [place], [place] [phone] [place] RESCHEDULED 11/28/2015 Patient Education: Patient Medication Summary Completed 11/23/2015 Care Plan: COMPREH[place]AB[place] : 16688-9 Pending 11/23/2015 Care Plan: LIPID PANEL LOINC : 31250-7 Pending 11/23/2015 Care Plan: CBC Pending 11/23/2015 Care Plan: A1C HPLC LOINC : 56656-6 Pending 11/23/2015 Visit Plan: Lab discussed Accuchecks richard ly Continue current meds Cymbalta helping with feet and mood 08/29/2015 Appointment: Neela Hyman WPtel: [phone] [phone] FOLLOW UP 08/29/2015 Patient Education: Patient Medication Summary Completed 08/29/2015 Visit Plan: Check CXR Stop all steroids and steroid inhalers Use SVN with but change to duoneb Add singulair for allergy etiology Change fluoxetine to cymbalta 60mg daily Viagra samples given to try prn--warned of no nitrates 08/14/2015 Appointment: Neela Hyman WPtel: [address] [facility] lm to reschedule ~sl 07/27 lm ~sl 08/09 busy 08/10 fer rosales-sp Annual Well Visit 08/14/2015 Patient Education: Patient Medication Summary Completed 08/14/2015 Care Plan: CHEST X-RAY 2VW FRONTAL&LATL LOINC : 15969-6 Ordered 08/14/2015 Visit Plan: Decadron 8mg given [...] as expected 08/09/2015 Appointment: Sammi Najera [address] ER Follow UP 08/09/2015 Patient Education: Patient Medication Summary Completed 08/09/2015 Patient Education: [facility] - Saving AutoInj - 18-64 - Dynamic Heber medina ID Completed 08/09/2015 Patient Education: Symbicort - 18-64 - eCopay Completed 08/09/2015 Patient Education: Patient Medication Summary Completed 08/08/2015 Visit Plan: Lab discussed Accuchecks richard ly Patient admits has changed eating habits--was eating twinkies and cookies routinely and has stopped buying those Will keep meds same for now Patiet got hearing aids and is doing well with it 05/22/2015 Appointment: Neela Hyman WPtel: [address] [place] [address] 05/17 confirmed~sl FOLLOW UP 05/22/2015 Patient Education: Patient Medication Summary Completed 05/22/2015 Patient Education: Patient Medication Summary Completed 05/15/2015 Visit Plan: Obtain EMGs done at [place] from when fractured left arm Lab discussed Accuchecks daily 02/13/2015 Appointment: Neela Hyman WPtel: [address] [place] [address] 02/10 confrimed FOLLOW UP 02/13/2015 Patient Education: Patient Medication Summary Completed 02/13/2015 Patient Education: Patient Medication Summary Completed 02/09/2015 Visit Plan: discussed lab add fenofibrat e 134mg po daily recheck fasting lab in 3 months, CBC, CMP, Lipids, hgb AIC 11/07/2014 Appointment: Neela Hyman WPtel: [address] [place], [place] [phone] 11/04 appt confirmed cn FOLLOW UP 015 Patient Education: Patient Medication Summary Completed 11/07/2014 Patient Education: Patient Medication Summary Completed 11/03/2014 Visit Plan: Continue loratadine 10mg richard ly Notify if symptoms return 10/04/2014 Appointment: Neela Hyman WPtel: [address] [place], [place] [phone] [place] confirmed on 10/03 at 2:42pm FOLLOW UP 09/23 Patient Education: Patient Medication Summary Completed 10/04/2014 Appointment: Neela Hyman WPtel: [address] [place], [place] [phone] ACUTE ILLNESS 09/28/2014 Appointment: Loren Garza WPtel: [address] [place], [place] [phone] FOLLOW UP 09/22/2014 Patient Education: Patient Medication Summary Completed 09/22/2014 Appointment: Loren Garza WPtel: [address] [place] [address] ACUTE ILLNESS 09/21/2014 Patient Education: Patient Medication Summary Completed 09/21/2014 Patient Education: [facility] - Saving AutoInj - 18+ - Dynamic Portal ID Completed 09/21/2014 Visit Plan: Lab discussed Continue daily accuchecks Continue current meds 06/28/2014 Appointment: Neela Hyman WPtel: [address] [place], [place] [phone] FOLLOW UP 06/28/2014 Patient Education: Patient Medication Summary Completed 06/28/2014 Patient Education: Patient Medication Summary Completed 06/23/2014 Appointment: Sarah Sunshine WPtel: [address] [place], [place] [phone] ACUTE ILLNESS 06/10/2014 Patient Education: Patient Medication Summary Completed 06/10/2014 Patient Education: [facility] - Saving AutoInj - 18+ - Dynamic Portal ID Completed 06/10/2014 Visit Plan: Lab discussed Continue daily accuchecks Continue current meds 03/29/2014 Appointment: Neela Hyman WPtel: [address] [place] [address] [place] FOLLOW UP 03/29/2014 Patient Education: Patient Medication Summary Completed 03/29/2014 Patient Education: Patient Medication Summary Completed 03/23/2014 Visit Plan: Lab discussed Continue curre nt meds and accuchecks See surgery for removal of hand lesion 11/30/2013 Appointment: Neela Hyman WPtel: [address] [place], [place] [phone] 11/29 no answer FOLLOW UP 11/30/2013 Patient Education: Patient Medication Summary Completed 11/30/2013 Visit Plan: Lab discussed Continue curre nt meds 08/03/2013 Appointment: Neela Hyman WPtel: [address] [place] [address] FOLLOW UP 08/03/2013 Patient Education: Patient Medication Summary Completed 08/03/2013 Visit Plan: Lab Discussed Will continue current meds and pt will get back on diet/exercise Check lab in 4mos and fwup 04/06/2013 Appointment: Neela Hyman WPtel: [address] [place] [address] FOLLOW UP 04/06/2013 Patient Education: Patient Medication Summary Completed 04/06/2013 Visit Plan: Lab discussed Continue daily accuchecks 12/01/2012 Appointment: Neela Hyman WPtel: [address] [place], [place] [phone] 11/30 no answer FOLLOW UP 12/01/2012 Patient Education: Patient Medication Summary Completed 12/01/2012 Visit Plan: Continue current meds and da russell accuchecks Lab discussed 08/04/2012 Appointment: Neela Hyman WPtel: [address] [place], [place] [phone] FOLLOW UP 08/04/2012 Patient Education: Patient Medication Summary Completed 08/04/2012 Appointment: Neela Hyman WPtel: [address] [place], [place] [phone] [facility] 06/01/2012 Patient Education: Patient Medication Summary Completed 06/01/2012 Appointment: Janet Jean Baptiste WPtel: [address] [place], [place] [phone] FOLLOW UP 05/29/2012 Patient Education: Patient Medication Summary Completed 05/29/2012 Visit Plan: pt states Dr. Hyman told h is to increase his Prozac dose while she was talking to her at [facility]. Discussed that pt. should not increase or decrease dosage without Dr's knowledge. Pt. will seek hearing test here in town at the hearing aid place on [address]. Discussed that ear pain is likely caused by sinus pressure. Pt. will notify if no improvement. 05/25/2012 Appointment: Janet Jean Baptiste WPtel: [address] [place], [place] [phone] ACUTE ILLNESS 05/25/2012 Patient Education: Patient Medication Summary Completed 05/25/2012 Visit Plan: Continue current meds Contin ue daily accuchecks but alternate times Increase fish oil to 3gm daily 04/07/2012 Appointment: Neela Hyman WPtel: [address] [place], [place] [phone] 04/06 FOLLOW UP 04/07/2012 Patient Education: Patient Medication Summary Completed 04/07/2012 Appointment: Janet Jean Baptiste WPtel: [address] [place], [place] [phone] ACUTE ILLNESS 12/16/2011 Patient Education: Patient Medication Summary Completed 12/16/2011 Visit Plan: Increase 12/03/2011 Appointment: Neela Hyman WPtel: [address] [place], [place] [phone] FOLLOW UP 12/03/2011 Patient Education: Patient Medication Summary Completed 12/03/2011 Visit Plan: Continue current meds Contin ue accuchecks 08/29/2011 Appointment: Neela Hyman WPtel: [address] [place], [place] [phone] [place] FOLLOW UP 08/29/2011 Patient Education: Patient Medication Summary Completed 08/29/2011 Visit Plan: Continue current meds except restart zocor 05/30/2011 Appointment: Neela Hyman WPtel: [address] [place], [place] [phone] FOLLOW UP 05/30/2011 Patient Education: Patient Medication Summary Completed 05/30/2011 Visit Plan: Continue tennis elbow strap May go back to weight-lifing--light weigts every other day 01/29/2011 Appointment: Neela Hyman WPtel: [address] [place] [address] FOLLOW UP 01/29/2011 Patient Education: Patient Medication Summary Completed 01/29/2011 Visit Plan: Continue tennis elbow strap and anti-inflammatories 01/14/2011 Appointment: Neela Hyman WPtel: [address] [place] [address] FOLLOW UP 01/14/2011 Appointment: Janet Jean Baptiste WPtel: [address] [place] [address] NEW PATIENT 01/14/2011 Patient Education: Patient Medication Summary Completed 01/14/2011 Appointment: Neela Hyman WPtel: [address] [place] [address] FOLLOW UP 01/08/2011 Appointment: Neela Hyman WPtel: [address] [place] [address] FOLLOW UP 01/01/2011 Appointment: Neela Hyman WPtel: [address] [place] [address] UA 01/01/2011 Patient Education: Patient Medication Summary [...] 11/29/2010 Appointment: Janet Jean Baptiste WPtel: [address] [place] [address] ACUTE ILLNESS 11/29/2010 Patient Education: Patient Medication Summary Completed 11/29/2010 Visit Plan: Cont current meds Check CMP, Lipids, HbA1C 08/28/2010 Appointment: Neela Hyman WPtel: [address] [place] [address] FOLLOW UP 08/28/2010 Patient Education: Patient Medication Summary Completed 08/28/2010 Visit Plan: Cont current meds and accuch ecks Add Zocor 40mg q HS Check Lipids and HbA1C in 3mos 06/05/2010 Appointment: Neela Hyman WPtel: [address] [place] [address] FOLLOW UP 06/05/2010 Patient Education: Patient Medication Summary Completed 06/05/2010 Visit Plan: Check Lipids and HbA1C 02/05/2010 Appointment: Neela Hyman WPtel: [address] [place] [address] FOLLOW UP 02/05/2010 Patient Education: Patient Medication Summary Completed 02/05/2010 Visit Plan: HbA1C in 3mos. Continue Accu checks BID alternating times. Check HbA1C, CMP, Lipids 10/09/2009 Appointment: Neela Hyman WPtel: [address] [place] [address] FOLLOW UP 10/09/2009 Patient Education: Patient Medication Summary Completed 10/09/2009 Visit Plan: Saline nasal flushes prn. Ty lenol/Motrin prn headache. Notify if persists/symptoms worsening. 08/22/2009 Appointment: Neela Hyman WPtel: [address] [place], [place] [phone] ACUTE ILLNESS 08/22/2009 Patient Education: Patient Medication Summary Completed 08/22/2009 Referral: Aubrey Rand WPtel: [address] [place], [place] [id number] [place] Office will verfy his insurance then they will contact patient Completed Referral: Shahbaz Brennan WPtel: [address] [facility] [address] [id number] [place] Referral Completed Referral: Ion Levi. [address] [place] [id number] [place] Referral Appointment Requested Referral: Ion Levi. [address] [place] [id number] [place] Referral Appointment Requested Instructions Comment . [...] with it . Obtain EMGs done at [place] from when fractured left arm Lab discussed [...] while she was talking to her at [facility]. Discussed that pt. should not increase or decrease dosage without Dr's knowledge. Pt. will seek hearing test here in town at the hearing aid place on [address]. Discussed that ear pain is likely caused [...]
--- OUTSIDE RECORDS SUMMARY | 2019-12-09 09:09 | XMS REPORT | CCD ---
Author Author Michael Hyman D.O. Organization [facility] Address [address] [place] [address] Phone Care Team Providers Care Hvac Specialist Name Role Phone Neela Hyman D.O., PP Unavailable CCM Unavailable Summary Purpose Interface Exchange Insurance Providers Payer name Policy type / Coverage type Covered libertarian ID Effective Begin Date Effective End Date ABS FOR [employer] Commercial Insurance [id number] Unknown Family History Family History data not found Social History Social History Element Codes Description Effective Dates Marital status Unknown 05/30/[address]: 7425033 Former smoker quit 25 years ago 01/01/2011 [...] chloride ER 20 mEq tablet,extended release RxNorm: 649996 1 Tablet(s) Oral two times a day 07/22/2019 10/19/2019 Active metformin 500 mg tablet RxNorm: 526365 2 Tablet(s) Oral two afshan es a day 07/13/2019 09/11/2019 Active Singulair 10 mg tablet RxNorm: 701990 TAKE ONE TABLET BY MOUTH EVERY EVENING 07/06/2019 01/02/2020 Active Reselected prescribe r from PEG [facility]HER to [facility] Keflex 500 mg capsule RxNorm: 903465 1 Capsule(s) Oral three ti mes a day 07/06/2019 07/13/2019 Inactive Singulair 10 mg tablet RxNorm: 345771 TAKE ONE TABLET BY MOUTH EVERY EVENING 06/22/2019 07/05/2019 Inactive Reselected prescribe r from PEG MAHER to [facility] Zocor 40 mg tablet RxNorm: 422027 TAKE ONE TABLET BY M OUTH EVERY NIGHT AT BEDTIME 06/21/2019 11/17/2019 Active MagOx 400 mg (241.3 mg magnesium) tablet RxNorm: 142585 1 Table t(s) Oral QD 06/21/2019 08/20/2019 Active diltiazem ER 360 mg capsule,24 hr,extended release RxNorm: 8 23318 TAKE ONE CAPSULE BY MOUTH AT BEDTIME -REPLACES 300MG 05/17/2019 11/12/2019 Active MagOx 400 mg (241.3 mg magnesium) tablet RxNorm: 281388 1 Table t(s) Oral QD 04/26/2019 06/20/2019 Inactive Lasix 40 mg tablet RxNorm: 093994 40 MG PO DAILY 04/12/2019 No Stop Da te Active Benicar 40 mg tablet RxNorm: 428259 1 Tablet(s) Oral QD 03/29/2019 Active potassium chloride ER 20 mEq tablet,extended release RxNorm: 348298 1 Tablet(s) Oral two times a day 03/29/2019 06/27/2019 Inactive potassium chloride ER 20 mEq tablet,extended release RxNorm: 767545 1 Tablet(s) Oral QD 03/29/2019 03/28/2019 Inactive Benicar 40 mg tablet RxNorm: 038667 1 Tablet(s) Oral QD 03/29/2019 Inactive MagOx 400 mg (241.3 mg magnesium) tablet RxNorm: 091966 1 Table t(s) Oral QD 03/29/2019 04/25/2019 Inactive metformin 500 mg tablet RxNorm: 114595 2 Tablet(s) Oral two afshan es a day 03/29/2019 07/12/2019 Inactive fenofibrate micronized 134 mg capsule RxNorm: 199899 TA KE ONE CAPSULE BY MOUTH EVERY DAY 03/05/2019 08/31/2019 Active duloxetine 60 mg capsule,delayed release RxNorm: 486581 1 Capsu le(s) PO QD 01/28/2019 07/26/2019 Inactive Trelegy Ellipta 100 mcg-62.5 mcg-25 mcg powder for inhalatio n RxNorm: 1762637 1 Puff(s) INH QD 01/06/2019 12/31/2019 Active 90 day supply prednisone 20 mg tablet RxNorm: 323867 1 Tablet(s) PO T ID for 3 days then 1 po BID for 3 days then 1 po daily for 3 days 01/05/2019 03/28/2019 Inacti ve metformin ER 1,000 mg tablet,extended release 24hr RxNorm: 1 743303 TAKE TWO TABLETS (1000MG) BY MOUTH TWO TIMES A DAY 12/22/2018 07/13/2019 Inacti ve Diflucan 100 mg tablet RxNorm: 803163 1 Tablet(s) PO QD 12/09/2018 Inactive prednisone 20 mg tablet RxNorm: 222822 1 Tablet(s) PO B ID for 4 days then 1 po daily for 4 days 11/24/2018 01/04/2019 Inactive albuterol sulfate 2.5 mg/3 mL (0.083 %) solution for n ebulization RxNorm: 778201 3 Milliliter(s) INH ONE VIAL VIA NEBULIZER EVERY 4 HOURS 07/21/2019 Inactive [AttnRPh: Saving apply/adjudicate RxGRP: SG20 RxBIN:[id number] RxPCN: ID#:[id number]] Trelegy Ellipta 100 mcg-62.5 mcg-25 mcg powder for inhalatio n RxNorm: 5513743 1 Puff(s) INH QD 10/27/2018 01/06/2019 Inactive 90 day supply metoprolol succinate ER 100 mg tablet,extended release 24 hr RxNorm: 446684 TAKE ONE TABLET BY MOUTH TWICE A DAY 10/13/2018 07/09/2019 Inactive diltiazem ER 360 mg capsule,24 hr,extended release RxNorm: 8 50065 TAKE ONE CAPSULE BY MOUTH AT BEDTIME -REPLACES 300MG 10/13/2018 04/10/2019 Inactive Trelegy Ellipta 100 mcg-62.5 mcg-25 mcg powder for inhalatio n RxNorm: 8425667 INHALE ONE PUFF ONCE DAILY 09/07/2018 10/27/2018 Inactive Levaquin 750 mg tablet RxNorm: 163539 1 Tablet(s) PO QD 09/07/2018 Inactive Levaquin 750 mg tablet RxNorm: 029386 1 Tablet(s) PO QD 09/07/2018 Inactive prednisone 20 mg tablet RxNorm: 882147 2 Tablet(s) PO QAM 08/13/2018 08/19/2018 Inactive Levaquin 500 mg tablet RxNorm: 021998 1 Tablet(s) PO QD 08/11/2018 Inactive fenofibrate micronized 134 mg capsule RxNorm: 387624 TA KE ONE CAPSULE BY MOUTH EVERY DAY 08/10/2018 02/05/2019 Inactive prednisone 20 mg tablet RxNorm: 317152 1 Tablet(s) PO BID 07/16/2018 07/20/2018 Inactive doxycycline hyclate 100 mg capsule RxNorm: 3585424 1 Capsule(s) PO BID 07/13/2018 07/22/2018 Inactive duloxetine 60 mg capsule,delayed release RxNorm: 101352 TAKE ONE CAPSULE BY MOUTH ONCE A DAY 07/08/2018 01/28/2019 Inactive Lasix 40 mg tablet RxNorm: 156624 1 TABLET(S) PO QAM 06/08/201809/05 Inactive potassium chloride ER 20 mEq tablet,extended release(p art/cryst) RxNorm: 8745160 1 TABLET(S) PO QD 06/08/2018 09/05/2018 Inactive metformin ER 1,000 mg tablet,extended release 24hr RxNorm: 1 734425 TAKE TWO TABLETS (1000MG) BY MOUTH TWO TIMES A DAY 06/01/2018 11/27/2018 Inacti ve Benicar HCT 40 mg-25 mg tablet RxNorm: 501509 TAKE ONE TABLET BY MOUTH ONCE DAILY 05/11/2018 03/28/2019 Inactive Zocor 40 mg tablet RxNorm: 551037 TAKE ONE TABLET BY M OUTH EVERY NIGHT AT BEDTIME 05/11/2018 06/20/2019 Inactive Trelegy Ellipta 100 mcg-62.5 mcg-25 mcg powder for inhalatio n RxNorm: 7059440 1 PUFF(S) INH QD 04/06/2018 07/04/2018 Inactive diltiazem ER 360 mg capsule,24 hr,extended release RxNorm: 8 74782 1 Capsule(s) PO QHS replaces 300mg dose 03/30/2018 09/25/2018 Inactive Trelegy Ellipta 100 mcg-62.5 mcg-25 mcg powder for inhalatio n RxNorm: 8591006 1 Puff(s) INH QD 02/24/2018 02/23/2018 Inactive Trelegy Ellipta 100 mcg-62.5 mcg-25 mcg powder for inhalatio n RxNorm: 3614931 1 Puff(s) INH QD 02/24/2018 02/23/2018 Inactive Trelegy Ellipta 100 mcg-62.5 mcg-25 mcg powder for inhalatio n RxNorm: 9504704 1 Puff(s) INH QD 02/24/2018 04/05/2018 Inactive Lasix 40 mg tablet RxNorm: 525840 1 Tablet(s) PO QAM 02/10/201803/11 Inactive potassium chloride ER 20 mEq tablet,extended release(p art/cryst) RxNorm: 1981532 1 Tablet(s) PO QD 02/10/2018 03/11/2018 Inactive fenofibrate micronized 134 mg capsule RxNorm: 981485 1 Capsule( s) PO QD 01/30/2018 07/28/2018 Inactive metoprolol succinate ER 100 mg tablet,extended release 24 hr RxNorm: 132468 TAKE ONE TABLET BY MOUTH TWICE A DAY 12/30/2017 09/25/2018 Inactive metformin ER 1,000 mg tablet,extended release 24hr RxNorm: 1 474263 1 Tablet(s) PO BID 11/17/2017 05/15/2018 Inactive [SAVINGS FOR NON -COVERED DRUGS -- BIN:942576, PCN: ASPROD1, Group: XXXXX, ID# [id number], Questions: . THIS IS NOT INSURANCE.] Benicar HCT 40 mg-25 mg tablet RxNorm: 779420 1 Tablet(s) PO QD 05/10/2018 Inactive [SAVINGS FOR NON-COVERED JESU GS -- BIN:794379, PCN: ASPROD1, Group: XXXXX, ID# [id number], Questions: . THIS IS NOT INSURANCE.] Bactroban 2 % topical cream RxNorm: 273138 Application TOP BID 10/2409/02/2018 Inactive clindamycin HCl 300 mg capsule RxNorm: 353293 2 Capsule(s) PO TID 0 11/05/2017 11/18/2017 Inactive duloxetine 60 mg capsule,delayed release RxNorm: 714904 Capsule(s) TAKE ONE CAPSULE BY MOUTH ONCE DAILY 09/24/2017 09/23/2017 Inactive triamcinolone acetonide 0.1 % topical ointment RxNorm: 4895663 1 TOP BID 09/09/2017 11/04/2017 Inactive Bactrim DS 800 mg-160 mg tablet RxNorm: 312548 1 Tablet(s) PO BID 0 08/07/2017 08/13/2017 Inactive metronidazole 500 mg tablet RxNorm: 936042 1 Tablet(s) PO BID 08/0708/13/2017 Inactive diltiazem ER 360 mg capsule,24 hr,extended release RxNorm: 8 83630 1 Capsule(s) PO QHS replaces 300mg dose 08/04/2017 01/30/2018 Inactive fenofibrate micronized 134 mg capsule RxNorm: 414335 1 Capsule( s) PO QD 07/21/2017 01/30/2018 Inactive Zocor 40 mg tablet RxNorm: 716648 1 Tablet(s) PO QHS 07/21/201705/10 Inactive GB duloxetine 60 mg capsule,delayed release RxNorm: 185222 Capsule(s) TAKE ONE CAPSULE BY MOUTH ONCE DAILY 06/24/2017 09/24/2017 Inactive Cleocin HCl 300 mg capsule RxNorm: 097266 2 Capsule(s) PO BID 06/0206/08/2017 Inactive acyclovir 800 mg tablet RxNorm: 066347 1 Tablet(s) PO 5x day 201706/08/2017 Inactive diltiazem ER 300 mg capsule,24 hr,extended release RxNorm: 8 54602 1 Capsule(s) PO QHS replaces 240mg dose 05/05/2017 08/03/2017 Inactive ipratropium-albuterol 0.5 mg-3 mg(2.5 mg base)/3 mL ne bulization soln RxNorm: 5215845 1 Unit Dose INH Q4H as needed 05/05/2017 01/04/2019 Inactive metformin ER 1,000 mg tablet,extended release 24hr RxNorm: 1 904866 1 Tablet(s) PO BID 04/28/2017 11/17/2017 Inactive [SAVINGS FOR NON -COVERED DRUGS -- BIN:409848, PCN: ASPROD1, Group: XXXXX, ID# [id number], Questions: . THIS IS NOT INSURANCE.] diltiazem ER (XR/XT) 240 mg capsule,extended release 2 4 hr, controlled RxNorm: 539130 TAKE ONE CAPSULE BY MOUTH EVERY DAY 04/15/2017 05/04/2017 Inact avani prednisone 20 mg tablet RxNorm: 787225 1 Tablet(s) PO QD 04/10/2017 1 06/14/2016 Inactive Breo Ellipta 200 mcg-25 mcg/dose powder for inhalation RxNor m: 9867038 1 Puff(s) INH QD 04/10/2017 02/09/2018 Inactive Breo Ellipta 200 mcg-25 mcg/dose powder for inhalation RxNor m: 8142112 1 Puff(s) INH QD 04/10/2017 04/09/2017 Inactive Levaquin 500 mg tablet RxNorm: 691731 1 Tablet(s) PO QD 04/10/2017 Inactive metoprolol succinate ER 100 mg tablet,extended release 24 hr RxNorm: 087861 TAKE ONE TABLET BY MOUTH TWICE A DAY 03/24/2017 12/18/2017 Inactive fenofibrate micronized 134 mg capsule RxNorm: 642664 1 Capsule( s) PO QD 01/16/2017 07/21/2017 Inactive Benicar HCT 40 mg-25 mg tablet RxNorm: 001969 1 Tablet(s) PO QD 11/17/2017 Inactive [SAVINGS FOR NON-COVERED JESU GS -- BIN:520645, PCN: ASPROD1, Group: XXXXX, ID# [id number], Questions: . THIS IS NOT INSURANCE.] metoprolol succinate ER 100 mg tablet,extended release 24 hr RxNorm: 019124 1 Tablet(s) PO BID 10/16/2016 03/23/2017 Inactive diltiazem ER (XR/XT) 240 mg capsule,extended release 2 4 hr, controlled RxNorm: 095571 1 Capsule(s) PO QD 10/16/2016 04/13/2017 Inactive [SAVINGS FOR NON- COVERED DRUGS -- BIN:666817, PCN: ASPROD1, Group: XXXXX, ID# XXXXXXX, Questions: . THIS IS NOT INSURANCE.] metformin ER 1,000 mg tablet,extended release 24hr RxNorm: 8 31613 1 Tablet(s) PO BID 10/16/2016 04/28/2017 Inactive [SAVINGS FOR NON -COVERED DRUGS -- BIN:749565, PCN: ASPROD1, Group: XXXXX, ID# XXXXXXX, Questions: . THIS IS NOT INSURANCE.] Zocor 40 mg tablet RxNorm: 072356 1 Tablet(s) PO QHS 10/16/201607/21 Inactive GB Singulair 10 mg tablet RxNorm: 862689 Tablet(s) 1 TABLET(S) PO QHS 08/27/2016 09/02/2018 Inactive prednisone 20 mg tablet RxNorm: 917472 1 Tablet(s) PO QD 08/27/2016 0 08/31/2016 Inactive ipratropium-albuterol 0.5 mg-3 mg(2.5 mg base)/3 mL ne bulization soln RxNorm: 4970190 1 Unit Dose INH Q4H as needed 08/27/2016 05/04/2017 Inactive metoprolol succinate ER 100 mg tablet,extended release 24 hr RxNorm: 415763 TAKE ONE TABLET BY MOUTH TWICE A DAY 08/05/2016 10/16/2016 Inactive duloxetine 60 mg capsule,delayed release RxNorm: 475622 TAKE ONE CAPSULE BY MOUTH ONCE DAILY 08/05/2016 06/24/2017 Inactive prednisone 20 mg tablet RxNorm: 682697 1 Tablet(s) PO QD 06/14/2016 0 06/18/2016 Inactive ipratropium-albuterol 0.5 mg-3 mg(2.5 mg base)/3 mL ne bulization soln RxNorm: 8458907 1 Unit Dose INH Q4H as needed 06/13/2016 08/26/2016 Inactive Levaquin 500 mg tablet RxNorm: 191780 1 Tablet(s) PO QD 06/13/2016 Inactive metoprolol succinate ER 100 mg tablet,extended release 24 hr RxNorm: 421269 1 Tablet(s) PO BID replaces 50mg dose 05/14/2016 07/12/2016 Inactive metoprolol succinate ER 50 mg tablet,extended release 24 hr RxNorm: 728058 1 Tablet(s) PO BID 04/29/2016 05/13/2016 Inactive prednisone 20 mg tablet RxNorm: 002047 1 Tablet(s) PO BID 04/22/2016 04/21/2016 Inactive prednisone 20 mg tablet RxNorm: 627447 1 Tablet(s) PO BID 04/22/2016 04/28/2016 Inactive Singulair 10 mg tablet RxNorm: 476109 Tablet(s) 1 TABLET(S) PO QHS 04/01/2016 08/26/2016 Inactive metoprolol succinate ER 25 mg tablet,extended release 24 hr RxNorm: 020874 1 Tablet(s) PO QHS for blood pressure 04/01/2016 05/13/2016 Inactive fenofibrate micronized 134 mg capsule RxNorm: 395215 TA KE ONE CAPSULE BY MOUTH DAILY 01/25/2016 01/16/2017 Inactive duloxetine 60 mg capsule,delayed release RxNorm: 857762 TAKE ONE CAPSULE BY MOUTH ONCE DAILY 01/25/2016 08/04/2016 Inactive Zocor 40 mg tablet RxNorm: 703602 TAKE ONE TABLET BY MOUTH AT B EDTIME 11/13/2015 10/16/2016 Inactive GB metformin ER 1,000 mg tablet,extended release 24hr RxNorm: 8 60895 1 Tablet(s) PO BID 10/26/2015 10/16/2016 Inactive [SAVINGS FOR NON -COVERED DRUGS -- BIN:010215, PCN: ASPROD1, Group: XXXXX, ID# [id number], Questions: . THIS IS NOT INSURANCE.] Benicar HCT 40 mg-25 mg tablet RxNorm: 777927 1 Tablet(s) PO QD 06/201511/11/2016 Inactive [SAVINGS FOR NON-COVERED JESU GS -- BIN:592744, PCN: ASPROD1, Group: XXXXX, ID# XXXXXXX, Questions: . THIS IS NOT INSURANCE.] diltiazem ER (XR/XT) 240 mg capsule,extended release,control led RxNorm: 682882 1 Capsule(s) PO QD 10/26/2015 10/15/2016 Inactive [SAVINGS FOR NO N-COVERED DRUGS -- BIN:955216, PCN: ASPROD1, Group: XXXXX, ID# [id number], Questions: . THIS IS NOT INSURANCE.] Singulair 10 mg tablet RxNorm: 908290 1 TABLET(S) PO QHS 09/18/2015 1 05/31/2015 Inactive Viagra 100 mg tablet RxNorm: 110492 1 Tablet(s) PO as needed 201511/23/2018 Inactive Singulair 10 mg tablet RxNorm: 221515 1 Tablet(s) PO QHS 08/16/2015 0 08/15/2015 Inactive Singulair 10 mg tablet RxNorm: 249207 1 Tablet(s) PO QHS 08/16/2015 0 09/14/2015 Inactive duloxetine 60 mg capsule,delayed release RxNorm: 311975 1 Capsule(s) PO QD replaces fluoxetine 08/14/2015 01/24/2016 Inactive ipratropium-albuterol 0.5 mg-3 mg(2.5 mg base)/3 mL ne bulization soln RxNorm: 4653978 1 Unit Dose INH Q4H as needed 08/14/2015 06/12/2016 Inactive prednisone 20 mg tablet RxNorm: 506004 Take 3 tabs PO o nce daily x 3 days, then 2 tabs PO once daily x 3 days and then 1 tab PO once daily x 3 days 08/09/2015 08/13/2015 Inactive Symbicort 160 mcg-4.5 mcg/actuation HFA aerosol inhaler RxNo rm: 5253586 2 Puff(s) INH BID 08/09/2015 08/13/2015 Inactive Zocor 40 mg tablet RxNorm: 410018 1 Tablet(s) PO QHS 05/23/201511/11 Inactive [AttnRPh: Saving apply/adjudicate RxGRP: SG20 RxBIN:[id number] RxPCN:HT ID#:[id number]] Benicar HCT 40 mg-25 mg tablet RxNorm: 891102 1 Tablet(s) PO QD 10/26/2015 Inactive [SAVINGS FOR NON-COVERED JESU GS -- BIN:462099, PCN: ASPROD1, Group: XXXXX, ID# [id number], Questions: . THIS IS NOT INSURANCE.] diltiazem ER (XR/XT) 240 mg capsule,extended release,control led RxNorm: 947179 1 Capsule(s) PO QD 04/24/2015 10/20/2015 Inactive [SAVINGS FOR NO N-COVERED DRUGS -- BIN:611587, PCN: ASPROD1, Group: XXXXX, ID# XXXXXXX, Questions: . THIS IS NOT INSURANCE.] fluoxetine 40 mg capsule RxNorm: 178013 1 Capsule(s) PO QD 04/24/20 15 08/13/2015 Inactive [SAVINGS FOR NON-COVERED JESU GS -- BIN:156880, PCN: ASPROD1, Group: XXXXX, ID# XXXXXXX, Questions: . THIS IS NOT INSURANCE.] Zocor 40 mg tablet RxNorm: 183622 TABLET(S) 1 TABLET(S) PO QHS 01/2505/23/2015 Inactive [AttnRPh: Saving apply/adjud icate RxGRP:SG20 RxBIN:[id number] RxPCN: ID#:[id number]] metformin ER 1,000 mg tablet,extended release 24hr RxNorm: 8 56422 1 TABLET(S) PO BID 01/29/2015 10/26/2015 Inactive [SAVINGS FOR NON -COVERED DRUGS -- BIN:659224, PCN: ASPROD1, Group: XXXXX, ID# XXXXXXX, Questions: . THIS IS NOT INSURANCE.] fenofibrate micronized 134 mg capsule RxNorm: 010938 1 CAPSULE( S) PO QD 01/23/2015 01/17/2016 Inactive fenofibrate micronized 134 mg capsule RxNorm: 144887 1 Capsule( s) PO QD 11/07/2014 01/22/2015 Inactive diltiazem ER (XR/XT) 240 mg capsule,extended release,control led RxNorm: 872994 1 Capsule(s) PO QD 10/24/2014 04/24/2015 Inactive [SAVINGS FOR NO N-COVERED DRUGS -- BIN:880574, PCN: ASPROD1, Group: XXXXX, ID# XXXXXXX, Questions: . THIS IS NOT INSURANCE.] Benicar HCT 40 mg-25 mg tablet RxNorm: 603678 1 Tablet(s) PO QD 05/201404/24/2015 Inactive [SAVINGS FOR NON-COVERED JESU GS -- BIN:038847, PCN: ASPROD1, Group: XXXXX, ID# XXXXXXX, Questions: . THIS IS NOT INSURANCE.] fluoxetine 40 mg capsule RxNorm: 253530 1 Capsule(s) PO QD 10/25/1904/24/2015 Inactive [SAVINGS FOR NON-COVERED JESU GS -- BIN:152247, PCN: ASPROD1, Group: XXXXX, ID# XXXXXXX, Questions: . THIS IS NOT INSURANCE.] azithromycin 500 mg tablet RxNorm: 414221 1 Tablet(s) PO QD 015 09/27/2014 Inactive [SAVINGS FOR NON-COVERED JESU GS -- BIN:449492, PCN: ASPROD1, Group: XXXXX, ID# XXXXXXX, Questions: . THIS IS NOT INSURANCE.] albuterol sulfate 2.5 mg/3 mL (0.083 %) solution for n ebulization RxNorm: 944168 3 Milliliter(s) INH ONE VIAL VIA NEBULIZER EVERY 4 HOURS 015 11/19/2014 Inactive [AttnRPh: Saving apply/adjudicate RxGRP: SG20 RxBIN:[id number] RxPCN: ID#:[id number]] Zocor 40 mg tablet RxNorm: 318879 TABLET(S) 1 TABLET(S ) PO QHS 1 TABLET(S) PO QHS 09/04/2014 02/21/2015 Inactive [AttnRPh: Saving apply/adjudicate RxGRP:SG20 RxBIN:[id number] RxPCN: ID#:[id number]] metformin ER 1,000 mg tablet,extended release 24hr RxNorm: 8 26104 1 Tablet(s) PO BID 08/04/2014 01/28/2015 Inactive [SAVINGS FOR NON -COVERED DRUGS -- BIN:754766, PCN: ASPROD1, Group: XXXXX, ID# XXXXXXX, Questions: . THIS IS NOT INSURANCE.] Bromfed DM 2 mg-30 mg-10 mg/5 mL syrup RxNorm: 7057118 1 -2 Teaspoon(s) PO Q4H as needed for cough 06/10/2014 06/19/2014 Inactive [SAVINGS FOR UN INSURED PATIENTS -- BIN:211210, PCN: ASPROD1, Group: AME08, ID# [id number], Process claim through [email or web address] ([employer]), for questions: . THIS IS NOT INSURANCE.] Augmentin 875 mg-125 mg tablet RxNorm: 858025 1 Tablet(s) PO Q12H 0 06/10/2014 06/19/2014 Inactive [AttnRPh: Saving apply/adjud icate RxGRP:SG20 RxBIN:[id number] RxPCN: ID#:[id number]] Zocor 40 mg tablet RxNorm: 765310 Tablet(s) 1 TABLET(S ) PO QHS 1 TABLET(S) PO QHS 05/25/2014 08/22/2014 Inactive [AttnRPh: Saving apply/adjudicate RxGRP:SG20 RxBIN:[id number] RxPCN:HT ID#:[id number]] fluoxetine 40 mg capsule RxNorm: 821501 1 Capsule(s) PO QD 04/29/20 14 10/24/2014 Inactive [AttnRPh: Saving apply/adjud icate RxGRP:SG20 RxBIN:[id number] RxPCN:HT ID#:[id number]] diltiazem ER (XR/XT) 240 mg capsule,extended release,control led RxNorm: 488900 1 Capsule(s) PO QD 04/29/2014 10/24/2014 Inactive [AttnRPh: Leonelin g apply/adjudicate RxGRP:SG20 RxBIN:[id number] RxPCN:HT ID#:[id number]] Benicar HCT 40 mg-25 mg tablet RxNorm: 727102 1 Tablet(s) PO QD 09/201310/24/2014 Inactive [AttnRPh: Saving apply/adjud icate RxGRP:SG20 RxBIN:[id number] RxPCN:HT ID#:[id number]] Zocor 40 mg tablet RxNorm: 538180 1 TABLET(S) PO QHS 1 TABLET(S ) PO QHS 03/07/2014 05/25/2014 Inactive [AttnRPh: Saving chelsie ly/adjudicate RxGRP:SG20 RxBIN:[id number] RxPCN:HT ID#:[id number]] Zocor 40 mg tablet RxNorm: 470212 1 Tablet(s) PO QHS 1 TABLET(S ) PO QHS 12/06/2013 03/05/2014 Inactive [AttnRPh: Saving chelsie ly/adjudicate RxGRP:SG20 RxBIN:[id number] RxPCN:HT ID#:[id number]] diltiazem ER (XR/XT) 240 mg capsule,extended release,control led RxNorm: 128176 1 Capsule(s) PO QD 10/25/2013 04/22/2014 Inactive [AttnRPh: Leonelin g apply/adjudicate RxGRP:SG20 RxBIN:[id number] RxPCN:HT ID#:[id number]] fluoxetine 40 mg capsule RxNorm: 178089 1 Capsule(s) PO QD 10/26/19 14 04/22/2014 Inactive [AttnRPh: Saving apply/adjud icate RxGRP:SG20 RxBIN:[id number] RxPCN:HT ID#:[id number]] Zocor 40 mg tablet RxNorm: 838186 1 Tablet(s) PO QHS 1 TABLET(S ) PO QHS 09/13/2013 12/06/2013 Inactive metformin ER 1,000 mg tablet,extended release 24hr RxNorm: 8 46095 Tablet(s) PO TAKE 1 TABLET BY MOUTH TWICE DAILY (REPLACES 500MG DOSE) 07/26/201303/2015 Inactive diltiazem ER (XR/XT) 240 mg capsule,extended release,control led RxNorm: 834538 1 Capsule(s) PO QD 05/03/2013 10/25/2013 Inactive fluoxetine 40 mg capsule RxNorm: 528277 1 Capsule(s) PO QD 05/03/20 13 10/25/2013 Inactive Benicar HCT 40 mg-25 mg tablet RxNorm: 172953 1 Tablet(s) PO QD 01/201304/29/2014 Inactive Zocor 40 mg tablet RxNorm: 773734 1 Tablet(s) PO QHS 12/10/201209/13 Inactive fluoxetine 40 mg capsule RxNorm: 116734 1 Capsule(s) PO QD 11/10/19 13 05/03/2013 Inactive diltiazem ER (XR/XT) 240 mg capsule,extended release,control led RxNorm: 559376 1 Capsule(s) PO QD 11/09/2012 05/03/2013 Inactive Benicar HCT 40 mg-25 mg tablet RxNorm: 711227 1 Tablet(s) PO QD 05/03/2013 Inactive metformin ER 1,000 mg tablet,extended release 24hr RxNorm: 8 76650 Tablet(s) PO TAKE 1 TABLET BY MOUTH TWICE DAILY (REPLACES 500MG DOSE) 08/05/201206/2013 Inactive Zocor 40 mg tablet RxNorm: 846898 1 Tablet(s) PO QHS 06/15/201212/09 Inactive fluoxetine 40 mg capsule RxNorm: 522526 1 Capsule(s) PO QD 05/15/20 12 11/08/2012 Inactive Neurontin 600 mg Tab RxNorm: 626034 1 Tablet(s) PO QHS 12/03/2011 Inactive metformin ER 1,000 mg tablet,extended release 24hr RxNorm: 8 63464 1 Tablet(s) PO BID replaces 500mg dose 12/03/2011 07/26/2013 Inactive Zocor 40 mg tablet RxNorm: 605035 1 Tablet(s) PO QHS 12/03/201106/15 Inactive fluoxetine 20 mg capsule RxNorm: 152351 1 Capsule(s) PO QD 12/03/19 12 05/24/2012 Inactive diltiazem ER (XR/XT) 240 mg capsule,extended release,control led RxNorm: 147616 1 Capsule(s) PO QD 11/15/2011 11/09/2012 Inactive Benicar HCT 40 mg-25 mg tablet RxNorm: 321142 1 Tablet(s) PO QD 02/16/2012 Inactive metformin ER 500 mg 24 hr Tab RxNorm: 661936 1 Tablet(s) PO BID 12/02/2011 Inactive Zocor 40 mg Tab RxNorm: 289701 1 Tablet(s) PO QHS 05/30/2011 11/25/19 12 Inactive fluoxetine 20 mg Cap RxNorm: 599162 1 Capsule(s) PO QD 05/28/2011 Inactive Neurontin 600 mg Tab RxNorm: 412463 1 Tablet(s) PO QHS 05/28/2011 Inactive Neurontin 600 mg Tab RxNorm: 645223 1 Tablet(s) PO QHS 02/22/201106/2011 Inactive Neurontin 600 mg Tab RxNorm: 553463 1 Tablet(s) PO QHS 01/14/2011 Inactive Neurontin 300 mg Cap RxNorm: 264064 1 Capsule(s) PO QHS 01/14/2011 Inactive Neurontin 600 mg Tab RxNorm: 086243 1 Tablet(s) PO QHS 01/14/2011 Inactive Medrol (Vipul) 4 mg Tabs in a Dose Pack RxNorm: 906001 Tablet(s) PO 0 01/02/2011 08/28/2011 Inactive as directed fluoxetine 20 mg Cap RxNorm: 811976 1 Capsule(s) PO QD 12/10/201006/2011 Inactive Zocor 40 mg Tab RxNorm: 716059 1 Tablet(s) PO QHS 12/03/2010 05/29/19 12 Inactive Neurontin 300 mg Cap RxNorm: 104083 1 Capsule(s) PO QHS 12/03/2010 Inactive Septra DS 800 mg-160 mg Tab RxNorm: 208871 1 Tablet(s) PO BID 11/2912/08/2010 Inactive diltiazem ER (XR/XT) 240 mg Continuous Release Cap RxNorm: 8 01383 1 Capsule(s) PO QD 11/20/2010 11/15/2011 Inactive Neurontin 300 mg Cap RxNorm: 446495 1 Capsule(s) PO QHS 11/06/2010 Inactive Neurontin 300 mg Cap RxNorm: 238448 1 Capsule(s) PO QHS 11/06/2010 Inactive Celebrex 200 mg Cap RxNorm: 895376 1 Capsule(s) PO BID 10/24/2010 Inactive fluoxetine 20 mg Cap RxNorm: 921188 1 Capsule(s) PO QD 06/07/201003/2011 Inactive Zocor 40 mg Tab RxNorm: 066689 1 Tablet(s) PO QHS 06/05/2010 12/02/19 11 Inactive Benicar HCT 40 mg-25 mg Tab RxNorm: 186802 1 Tablet(s) PO QD 200908/21/2011 Inactive Diltiazem 240 mg Continuous Release Cap RxNorm: 870805 1 Capsul e(s) PO QD 11/09/2009 09/02/2018 Inactive Avelox 400 mg Tab RxNorm: 595512 1 Tablet(s) PO QD 08/22/2009 010 Inactive ProAir HFA 90 mcg/actuation aerosol inhaler RxNorm: 538854 2 Puff(s) INH Q4H as needed No Start Date Active tramadol 50 mg tablet RxNorm: 991500 1-2 Tablet(s) PO TID as ne eded for pain No Start Date Active Tylenol Arthritis 650 mg Tab RxNorm: 2887081 2 Tablet(s) PO QD No Sta rt Date Active Celebrex 200 mg Cap RxNorm: 203761 1 Capsule(s) PO BID No Start Date 08/08/2015 Inactive Medrol (Vipul) 4 mg Tabs in a Dose Pack RxNorm: 084878 Tablet(s) PO N o Start Date 01/01/2011 Inactive as directed Promethazine-DM 6.25 mg-15 mg/5 mL Syrup RxNorm: 890890 1-2 Teaspoon(s) PO Q4H prn cough No Start Date 08/28/2011 Inactive Claritin 10 mg tablet RxNorm: 164681 1 Tablet(s) PO QD No Start Date 08/08/2015 Inactive [id number] Oral RxNorm: Oral No Start Da te 03/28/2019 Inactive Breo Ellipta 200 mcg-25 mcg/dose powder for inhalation RxNor m: 6693633 1 Puff(s) INH QD No Start Date 04/09/2017 Inactive metformin 500 mg Tab RxNorm: 766941 1 Tablet(s) PO QD No Start Date 0 08/17/2011 Inactive Diltiazem 240 mg Continuous Release Cap RxNorm: 068625 1 Capsul e(s) PO BID No Start Date 11/08/2009 Inactive fluoxetine 20 mg Cap RxNorm: 987605 1 Capsule(s) PO QD No Start Date 06/07/2010 Inactive Multivitamin & Mineral Formula Oral RxNorm: Oral No Start Da te 03/28/2019 Inactive Medrol (Vipul) 4 mg tablets in a dose pack RxNorm: 353072 Tablet(s) PO as directed No Start Date 05/28/2012 Inactive Fish Oil 1,000 mg Cap RxNorm: 1 Capsule(s) PO QD No Start Date 07/2018 Inactive Nexium 40 mg Cap RxNorm: 302460 1 Capsule(s) PO QD No Start Date 07/24 Inactive fluticasone 50 mcg/actuation nasal spray,suspension RxNorm: 2171753 2 [place] NASAL QD to each nostril No Start Date 08/03/2017 Inactive Viagra 100 mg tablet RxNorm: 017431 1 Tablet(s) PO as needed No Sta rt Date 09/17/2015 Inactive prednisone 20 mg tablet RxNorm: 289759 1 Tablet(s) PO B ID for 4 days then 1 po daily for 4 days No Start Date 11/23/2018 Inactive Benicar HCT 40 mg-25 mg Tab RxNorm: 207975 1 Tablet(s) PO QD No Sta rt [...] Date S ervice Location MICROALBUMIN URINE RANDOM 10530 MICRL MG/L 5.8 MG/L 03/2011 Unknown MICROALBUMIN URINE RANDOM 52599 XM.ALB/CRE 5.2 MG/GCR Unknown MICROALBUMIN URINE RANDOM 61792 CREAT MG/D 111 MG/DL 03/2011 Unknown MICROALBUMIN URINE RANDOM 60494 CRE/100 1.11 G/L 12/24 Unknown Procedures Procedure Codes Date FLU VACC PRSV FREE INC ANTIG 65 AND OLDER CPT-4: 11350 03/04/2019 ADMIN PNEUMOCOCCAL VACCINE CPT-4: G0009 03/04/2019 ADMIN INFLUENZA VIRUS VAC CPT-4: G0008 03/04/2019 FLU VACC PRSV FREE INC ANTIG 65 AND OLDER CPT-4: 08515 03/04/2019 PNEUMOCOCCAL VACC 23 [facility] IM CPT-4: 09149 03/04/2019 THER/PROPH/DIAG INJ SC/IM CPT-4: 41986 08/11/2018 TRIAMCINOLONE ACET INJ NOS CPT-4: J3301 08/11/2018 DEXAMETHASONE SODIUM PHOS CPT-4: J1100 08/11/2018 THER/PROPH/DIAG INJ SC/IM CPT-4: 86597 07/16/2018 METHYLPREDNISOLONE INJECTION CPT-4: J2930 07/16/2018 INFLUENZA ASSAY W/OPTIC CPT-4: 94925 07/16/2018 THER/PROPH/DIAG INJ SC/IM CPT-4: 58712 07/13/2018 TRIAMCINOLONE ACET INJ NOS CPT-4: J3301 07/13/2018 THER/PROPH/DIAG INJ SC/IM CPT-4: 58582 05/04/2018 METHYLPREDNISOLONE INJECTION CPT-4: J2930 05/04/2018 FLU VACC PRSV FREE INC ANTIG 65 AND OLDER CPT-4: 26743 02/10/2018 PNEUMOCOCCAL VACC 13 [facility] IM CPT-4: 47493 02/10/2018 ADMIN INFLUENZA VIRUS VAC CPT-4: G0008 02/10/2018 ADMIN PNEUMOCOCCAL VACCINE CPT-4: G0009 02/10/2018 THER/PROPH/DIAG INJ SC/IM CPT-4: 85154 09/09/2017 TRIAMCINOLONE ACET INJ NOS CPT-4: J3301 09/09/2017 ALBUTEROL NON-COMP UNIT CPT-4: J7613 04/10/2017 AIRWAY INHALATION TREATMENT CPT-4: 70975 04/10/2017 PRESCRIP TRANSMIT VIA ERX SY CPT-4: G8553 04/10/2017 FLU VACC PRSV FREE INC ANTIG 65 AND OLDER CPT-4: 98312 03/28/2017 ADMIN INFLUENZA VIRUS VAC CPT-4: G0008 03/28/2017 PRESCRIP TRANSMIT VIA ERX SY CPT-4: G8553 08/27/2016 PRESCRIP TRANSMIT VIA ERX SY CPT-4: G8553 06/14/2016 ALBUTEROL NON-COMP UNIT CPT-4: J7613 06/13/2016 AIRWAY INHALATION TREATMENT CPT-4: 55068 06/13/2016 PRESCRIP TRANSMIT VIA ERX SY CPT-4: [...] CPT-4: G8553 11/07/2014 THER/PROPH/DIAG INJ SC/IM CPT-4: 80266 09/21/2014 METHYLPREDNISOLONE INJECTION CPT-4: J2930 09/21/2014 PRESCRIP TRANSMIT VIA ERX SY CPT-4: G8553 09/21/2014 PRESCRIP TRANSMIT VIA ERX SY CPT-4: G8553 06/10/2014 URINALYSIS NONAUTO W/O SCOPE CPT-4: 08384 06/01/2012 PRESCRIP TRANSMIT VIA ERX SY CPT-4: G8553 05/25/2012 PRESCRIP TRANSMIT VIA ERX SY CPT-4: G8553 12/03/2011 CUR TOBACCO NON-USER CPT-4: G8457 05/30/2011 PRESCRIP TRANSMIT VIA ERX SY CPT-4: G8553 05/30/2011 URINALYSIS NONAUTO W/O SCOPE CPT-4: 11890 01/01/2011 URINE CULTURE/ COLONY COUNT CPT-4: 38209 01/01/2011 CUR TOBACCO NON-USER CPT-4: G8457 01/01/2011 [...] 1: 114/68 Code: 8480-6 BMI: 43.5 Code: 37962-6 Heart Rate 1: 52 bpm Height: 6'1" [...] 1: 136/72 Code: 8480-6 BMI: 42.7 Code: 73113-6 Heart Rate 1: 60 bpm Height: 6'1" Respiratory Rate: 22 bpm SpO2: 95% Tempera ture: 37.1 (C) / 98.7 (F) Weight: 324 lbs 02/10/2018 Blood Pressure 1: 146/78 Code: 8480-6 BMI: 42.4 Code: 74354-4 Heart Rate 1: 64 bpm Height: 6'1" Respiratory Rate: 22 bpm SpO2: 95% Tempera ture: 36.5 (C) / 97.7 (F) Weight: 321 lbs 11/05/2017 Blood Pressure 1: 128/84 Code: 8480-6 BMI: 42.9 Code: 27725-6 Heart Rate 1: 52 bpm Height: 6'1" Respiratory Rate: 22 bpm SpO2: 95% Tempera ture: 36.3 (C) / 97.3 (F) Weight: 325 lbs 09/09/2017 Blood Pressure 1: 162/90 Code: 8480-6 BMI: 42.5 Code: 10705-3 Heart Rate 1: 60 bpm Height: 6'1" Respiratory Rate: 24 bpm SpO2: 95% Tempera ture: 36.4 (C) / 97.6 (F) Weight: 322 lbs 08/07/2017 Blood Pressure 1: 152/90 Code: 8480-6 BMI: 42.2 Code: 69980-4 Heart Rate 1: 60 bpm Height: 6'1" Respiratory Rate: 26 bpm SpO2: 94% Tempera ture: 36.6 (C) / 97.8 (F) Weight: 320 lbs 08/04/2017 Blood Pressure 1: 150/86 Code: 8480-6 BMI: 42.7 Code: 78106-1 Heart Rate 1: 64 bpm Height: 6'1" Respiratory Rate: 20 bpm SpO2: 94% Tempera ture: 36.3 (C) / 97.3 (F) Weight: 324 lbs 06/04/2017 Blood Pressure 1: 164/90 Code: 8480-6 Heart Rate 1: 60 bpm Respiratory Rate: 24 bpm SpO2: 94% Temperature: 36.8 (C) / 98.3 (F) 06/02/2017 Blood Pressure 1: 162/80 Code: 8480-6 BMI: 42.9 Code: 59370-9 Heart Rate 1: 66 bpm Height: 6'1" Respiratory Rate: 22 bpm SpO2: 98% Tempera ture: 36.6 (C) / 97.8 (F) Weight: 325 lbs 05/05/2017 Blood Pressure 1: 164/94 Code: 8480-6 BMI: 41.4 Code: 73450-3 Heart Rate 1: 64 bpm Height: 6'1" Respiratory Rate: 22 bpm SpO2: 95% Tempera ture: 36.4 (C) / 97.5 (F) Weight: 314 lbs 04/10/2017 Blood Pressure 1: 136/78 Code: 8480-6 BMI: 42.0 Code: 76377-5 Heart Rate 1: 76 bpm Height: 6'1" Respiratory Rate: 24 bpm SpO2: 92% Tempera ture: 35.9 (C) / 96.7 (F) Weight: 318 lbs 02/03/2017 Blood Pressure 1: 134/82 Code: 8480-6 BMI: 41.7 Code: 07473-8 Heart Rate 1: 72 bpm Height: 6'1" Respiratory Rate: 24 bpm SpO2: 95% Tempera ture: 36.1 (C) / 97.0 (F) Weight: 316 lbs 10/30/2016 Blood Pressure 1: 126/74 Code: 8480-6 BMI: 41.3 Code: 64427-0 Heart Rate 1: 68 bpm Height: 6'1" Respiratory Rate: 20 bpm Temperature: 37 .1 (C) / 98.8 (F) Weight: 313 lbs 08/30/2016 Blood Pressure 1: 146/80 Code: 8480-6 BMI: 41.7 Code: 27441-4 Heart Rate 1: 64 bpm Height: 6'1" Respiratory Rate: 24 bpm SpO2: 94% Tempera ture: 36.6 (C) / 97.8 (F) Weight: 316 lbs 08/27/2016 Blood Pressure 1: 124/78 Code: 8480-6 Heart Rate 1: 66 bpm Height: 6'2" Respiratory Rate: 18 bpm SpO2: 94% Temperature: 36.6 (C) / 97.8 (F) Weight: 07/02/2016 Blood Pressure 1: 126/78 Code: 8480-6 BMI: 41.4 Code: 59736-0 Heart Rate 1: 68 bpm Height: 6'1" Respiratory Rate: 24 bpm SpO2: 94% Tempera ture: 36.6 (C) / 97.8 (F) Weight: 314 lbs 06/14/2016 Blood Pressure 1: 146/82 Code: 8480-6 Heart Rate 1: 80 bpm Respiratory Rate: 20 bpm SpO2: 95% Temperature: 37.3 (C) / 99.2 (F) 06/13/2016 Blood Pressure 1: 146/84 Code: 8480-6 BMI: 40.5 Code: 03509-5 Heart Rate 1: 66 bpm Height: 6'1" Respiratory Rate: 28 bpm SpO2: 93% Tempera ture: 35.8 (C) / 96.4 (F) Weight: 307 lbs 05/14/2016 Blood Pressure 1: 146/90 Code: 8480-6 BMI: 41.2 Code: 81048-7 Heart Rate 1: 68 bpm Height: 6'1" Respiratory Rate: 26 bpm Temperature: 36 .8 (C) / 98.2 (F) Weight: 312 lbs 04/29/2016 Blood Pressure 1: 152/90 Code: 8480-6 BMI: 41.0 Code: 89929-8 Heart Rate 1: 68 bpm Height: 6'1" Respiratory Rate: 26 bpm SpO2: 94% Tempera ture: 36.1 (C) / 96.9 (F) Weight: 311 lbs 04/22/2016 Blood Pressure 1: 152/94 Code: 8480-6 BMI: 40.9 Code: 44695-1 Heart Rate 1: 68 bpm Height: 6'1" Respiratory Rate: 24 bpm SpO2: 94% Tempera ture: 36.2 (C) / 97.2 (F) Weight: 310 lbs 04/01/2016 Blood Pressure 1: 156/78 Code: 8480-6 BMI: 40.6 Code: 95035-5 Heart Rate 1: 84 bpm Height: 6'1" Respiratory Rate: 22 bpm SpO2: 95% Tempera ture: 37.1 (C) / 98.7 (F) Weight: 308 lbs 11/30/2015 Blood Pressure 1: 142/80 Code: 8480-6 BMI: 40.5 Code: 04457-7 Heart Rate 1: 88 bpm Height: 6'1" Respiratory Rate: 22 bpm Temperature: 36 .2 (C) / 97.2 (F) Weight: 307 lbs 08/29/2015 Blood Pressure 1: 132/70 Code: 8480-6 BMI: 40.0 Code: 72307-1 Heart Rate 1: 76 bpm Height: 6'1" Respiratory Rate: 24 bpm SpO2: 96% Tempera ture: 36.7 (C) / 98.0 (F) Weight: 303 lbs 08/14/2015 Blood Pressure 1: 126/80 Code: 8480-6 BMI: 39.4 Code: 98236-8 Heart Rate 1: 92 bpm Height: 6'1" Respiratory Rate: 24 bpm SpO2: 94% Tempera ture: 37.8 (C) / 100.0 (F) Weight: 299 lbs 08/09/2015 Blood Pressure 1: 146/82 Code: 8480-6 Heart Rate 1: 82 bpm Respiratory Rate: 22 bpm SpO2: 93% Temperature: 35.9 (C) / 96.6 (F) We ight: 310 lbs 05/22/2015 Blood Pressure 1: 156/76 Code: 8480-6 BMI: 41.0 Code: 79740-9 Heart Rate 1: 100 bpm Height: 6'1" Respiratory Rate: 22 bpm Temperature: 37 .2 (C) / 98.9 (F) Weight: 311 lbs 02/13/2015 Blood Pressure 1: 166/90 Code: 8480-6 BMI: 41.2 Code: 05121-9 Heart Rate 1: 72 bpm Height: 6'1" Respiratory Rate: 24 bpm SpO2: 93% Tempera ture: 36.9 (C) / 98.5 (F) Weight: 312 lbs 11/07/2014 Blood Pressure 1: 134/70 Code: 8480-6 BMI: 40.5 Code: 38820-5 Heart Rate 1: 76 bpm Height: 6'1" Respiratory Rate: 24 bpm Temperature: 36 .9 (C) / 98.4 (F) Weight: 307 lbs 10/04/2014 Blood Pressure 1: 144/86 Code: 8480-6 BMI: 40.1 Code: 06793-7 Heart Rate 1: 76 bpm Height: 6'1" Respiratory Rate: 28 bpm Temperature: 36 .6 (C) / 97.9 (F) Weight: 304 lbs 09/22/2014 Blood Pressure 1: 142/80 Code: 8480-6 BMI: 40.0 Code: 66695-1 Heart Rate 1: 80 bpm Height: 6'1" Respiratory Rate: 22 bpm SpO2: 96% Tempera ture: 36.6 (C) / 97.8 (F) Weight: 303 lbs 09/21/2014 Blood Pressure 1: 160/66 Code: 8480-6 BMI: 40.0 Code: 33443-1 Heart Rate 1: 90 bpm Height: 6'1" Respiratory Rate: 26 bpm SpO2: 94% Tempera ture: 35.7 (C) / 96.2 (F) Weight: 303 lbs 06/28/2014 Blood Pressure 1: 132/80 Code: 8480-6 BMI: 41.0 Code: 12301-7 Heart Rate 1: 64 bpm Height: 6' Respiratory Rate: 20 bpm Temperature: 36 .7 (C) / 98.0 (F) Weight: 302 lbs 06/10/2014 Blood Pressure 1: 152/70 Code: 8480-6 BMI: 41.1 Code: 56737-1 Heart Rate 1: 76 bpm Height: 6' Respiratory Rate: 20 bpm Temperature: 36 .6 (C) / 97.8 (F) Weight: 303 lbs 03/29/2014 Blood Pressure 1: 132/78 Code: 8480-6 BMI: 40.6 Code: 74266-0 Heart Rate 1: 84 bpm Height: 6' Respiratory Rate: 22 bpm Temperature: 37 .1 (C) / 98.8 (F) Weight: 299 lbs 11/30/2013 Blood Pressure 1: 136/84 Code: 8480-6 BMI: 39.2 Code: 01893-7 Heart Rate 1: 76 bpm Height: 6' Respiratory Rate: 20 bpm Temperature: 36 .8 (C) / 98.2 (F) Weight: 289 lbs 08/03/2013 Blood Pressure 1: 144/80 Code: 8480-6 Heart Rate 1: 86 bpm Respiratory Rate: 20 bpm Temperature: 36.6 (C) / 97.8 (F) Weight: 296 lbs 04/06/2013 Blood Pressure 1: 142/90 Code: 8480-6 BMI: 40.3 Code: 37350-7 Heart Rate 1: 88 bpm Height: 6' Respiratory Rate: 20 bpm Temperature: 36 .6 (C) / 97.8 (F) Weight: 297 lbs 12/01/2012 Blood Pressure 1: 124/78 Code: 8480-6 BMI: 38.7 Code: 07441-0 Heart Rate 1: 76 bpm Height: 6' Respiratory Rate: 20 bpm Temperature: 37 .2 (C) / 98.9 (F) Weight: 285 lbs 08/04/2012 Blood Pressure 1: 128/80 Code: 8480-6 BMI: 38.2 Code: 55528-2 Heart Rate 1: 76 bpm Height: 6' Respiratory Rate: 20 bpm Temperature: 37 .0 (C) / 98.6 (F) Weight: 282 lbs 05/29/2012 Blood Pressure 1: 138/78 Code: 8480-6 BMI: 36.6 Code: 57232-5 Heart Rate 1: 66 bpm Height: 6' Temperature: 36.7 (C) / 98.1 (F) Weight: 270 lbs 05/25/2012 Blood Pressure 1: 128/72 Code: 8480-6 BMI: 39.9 Code: 27858-6 Heart Rate 1: 74 bpm Height: 6' Temperature: 36.1 (C) / 97.0 (F) Weight: 294 lbs 04/07/2012 Blood Pressure 1: 124/76 Code: 8480-6 BMI: 39.9 Code: 63762-0 Heart Rate 1: 72 bpm Height: 6' Respiratory Rate: 20 bpm Temperature: 36 .9 (C) / 98.5 (F) Weight: 294 lbs 12/16/2011 Blood Pressure 1: 128/80 Code: 8480-6 BMI: 40.8 Code: 72069-0 Heart Rate 1: 74 bpm Height: 6' Temperature: 36.6 (C) / 97.8 (F) Weight: 301 lbs 12/03/2011 Blood Pressure 1: 132/76 Code: 8480-6 BMI: 40.8 Code: 94353-7 Heart Rate 1: 68 bpm Height: 6' Respiratory Rate: 20 bpm Temperature: 36 .8 (C) / 98.2 (F) Weight: 301 lbs 08/29/2011 Blood Pressure 1: 140/68 Code: 8480-6 BMI: 40.8 Code: 22287-3 Heart Rate 1: 80 bpm Height: 6' Respiratory Rate: 20 bpm Temperature: 36 .4 (C) / 97.6 (F) Weight: 301 lbs 05/30/2011 Blood Pressure 1: 134/82 Code: 8480-6 BMI: 41.5 Code: 47417-3 Heart Rate 1: 76 bpm Height: 6' [...] 1: 126/72 Code: 8480-6 BMI: 41.2 Code: 70438-0 Heart Rate 1: 76 bpm Height: 6' [...] 1: 152/90 Code: 8480-6 BMI: 37.7 Code: 62726-9 Heart Rate 1: 92 bpm Height: 6'1" [...] dm Encounters Encounter Performer Location Codes Date ([id number]) OFFICE/OUTPATIENT VISIT EST Diagnosis: Chronic obstructive pulmonary disease with (acute) exacerbation[ICD10: J44.1] Neela HYMAN [facility] CPT- 4: 77528 08/10/2019 ([id number]) OFFICE/OUTPATIENT VISIT EST Diagnosis: Sore on toe[ICD10: L98.9] Neela VASQUEZ [facility] CPT-4: 49114 07/06/2019 ([id number]) OFFICE/OUTPATIENT VISIT EST Diagnosis: Advanced chronic obstructive pulmonary disease[ICD10: J44.9] 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] Neela QURESHI [employer] CPT-4: 55929 05/10/2019 ([id number]) OFFICE/OUTPATIENT VISIT EST Diagnosis: Chronic obstructive pulmonary disease with (acute) exacerbation[ICD10: J44.1] Diagnosis: Hypokalemia[ICD10: E87.6] 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] Neela Yenni HYMAN DO [facility] CPT-4: 43211 03/29/2019 ([id number]) NURSE/OUTPATIENT VISIT EST Diagnosis: PNEUMOCOCCAL VACCINE[ICD10: Z23] Neela HYMAN DO [facility] CPT-4: 54568 03/04/2019 ([id number]) OFFICE/OUTPATIENT VISIT EST Diagnosis: Chronic obstructive pulmonary disease with (acute) exacerbation[ICD10: J44.1] Diagnosis: Other nonspecific abnormal finding of lung field[ICD10: R91.8] Neela HYMAN DO [facility] CPT-4: 08224 01/05/2019 ([id number]) OFFICE/OUTPATIENT VISIT EST Diagnosis: Solitary pulmonary nodule[ICD10: R91.1] 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] Diagnosis: Tinea corporis[ICD10: B35.4] Neela HYMAN DO [facility] CPT-4: 45210 12/09/2018 ([id number]) OFFICE/OUTPATIENT VISIT EST Diagnosis: COUGH[ICD10: R05] Diagnosis: Chronic obstructive pulmonary disease, unspecified[ICD10: J44.9] Diagnosis: Other disorders of lung[ICD10: J98.4] Diagnosis: Other nonspecific abnormal finding of lung field[ICD10: R91.8] Neela HYMAN DO [facility] CPT-4: 04726 11/24/2018 ([id number]) OFFICE/OUTPATIENT VISIT EST Diagnosis: Pneumonia, unspecified organism[ICD10: J18.9] Amita Henderson NEELA HYMAN DO [facility] CPT-4: 57477 09/16/2018 ([id number]) OFFICE/OUTPATIENT VISIT EST Diagnosis: Pneumonia, unspecified organism[ICD10: J18.9] Neela HYMAN DO [facility] CPT-4: 00985 09/03/2018 ([id number]) OFFICE/OUTPATIENT VISIT EST Diagnosis: Personal history of pneumonia (recurrent)[ICD10: Z87.01] Diagnosis: Cough[ICD10: R05] Diagnosis: Essential (primary) hypertension[ICD10: I10] Diagnosis: Type 2 diabetes mellitus with hyperglycemia[ICD10: E11.65] Amitacalvin Henderson NEELA Octavio ZHANG [employer] [facility] CPT-4: 22844 08/27/2018 OFFICE/OUTPATIENT VISIT EST Diagnosis: Pneumonia, unspecified organism[ICD10: J18.9] Diagnosis: Chronic obstructive pulmonary disease with (acute) exacerbation[ICD10: J44.1] Diagnosis: Other specified symptoms and signs involving the circulatory and respiratory systems[ICD10: R09.89] Diagnosis: Essential (primary) hypertension[ICD10: I10] Amita Santiagolincoln MURILLO JulissaMendez VICENTE [employer] [facility] CPT-4: 01953 08/13/2018 OFFICE/OUTPATIENT VISIT EST Diagnosis: Pneumonia, unspecified organism[ICD10: J18.9] Diagnosis: Other specified symptoms and signs involving the circulatory and respiratory systems[ICD10: R09.89] Amita Santiagolincoln [place]O JulissaMendez [employer] [facility] CPT-4: 88636 08/11/2018 ([id number]) OFFICE/OUTPATIENT VISIT EST Diagnosis: Dyspnea, unspecified[ICD10: R06.00] Diagnosis: Chronic obstructive pulmonary disease with (acute) exacerbation[ICD10: J44.1] Diagnosis: Pneumonia, unspecified organism[ICD10: J18.9] Amita Santiagolincoln [place]UR[place]O Julissa [employer] [facility] CPT-4: 40873 07/16/2018 ([id number]) OFFICE/OUTPATIENT VISIT EST Diagnosis: Acute bronchitis due to other specified organisms[ICD10: J20.8] Diagnosis: Cough[ICD10: R05] Amita Santiagodebbie MUR[place]O [employer] [facility] T-4: 02486 07/13/2018 ([id number]) OFFICE/OUTPATIENT VISIT EST Diagnosis: Essential (primary) hypertension[ICD10: I10] Diagnosis: Chronic obstructive pulmonary disease, unspecified[ICD10: J44.9] Diagnosis: Type 2 diabetes mellitus with hyperglycemia[ICD10: E11.65] Diagnosis: Mixed hyperlipidemia[ICD10: E78.2] Neela STERLING [employer] [facility] CPT-4: 37402 06/03/2018 ([id number]) OFFICE/OUTPATIENT VISIT EST Diagnosis: Chronic obstructive pulmonary disease, unspecified[ICD10: J44.9] Gely MURILLO [employer] [facility] CPT-4: 29558 05/04/2018 ([id number]) OFFICE/OUTPATIENT VISIT EST Diagnosis: Essential (primary) hypertension[ICD10: I10] Diagnosis: Localized edema[ICD10: R60.0] Neela HYMAN DO [facility] CPT-4: 18753 03/03/2018 ([id number]) OFFICE/OUTPATIENT VISIT EST Diagnosis: Localized edema[ICD10: R60.0] Neela HYMAN DO [facility] CPT-4: 86539 02/17/2018 ([id number]) OFFICE/OUTPATIENT VISIT EST Diagnosis: FLU VACCINE[ICD10: Z23] Diagnosis: PNEUMOCOCCAL VACCINE[ICD10: Z23] Diagnosis: Type 2 diabetes mellitus without complications[ICD10: E11.9] Diagnosis: Mixed hyperlipidemia[ICD10: E78.2] Diagnosis: Essential (primary) hypertension[ICD10: I10] Diagnosis: Localized edema[ICD10: R60.0] Diagnosis: Chronic obstructive pulmonary disease, unspecified[ICD10: J44.9] Neela HYMAN [facility] CPT-4: 18035 02/10/2018 ([id number]) OFFICE/OUTPATIENT VISIT EST Diagnosis: Type 2 diabetes mellitus with hyperglycemia[ICD10: E11.65] Diagnosis: Mixed hyperlipidemia[ICD10: E78.2] Diagnosis: Essential (primary) hypertension[ICD10: I10] Diagnosis: Chronic obstructive pulmonary disease, unspecified[ICD10: J44.9] Diagnosis: Cutaneous abscess of back [any part, except buttock][ICD10: L02.212] Neela HYMAN [facility] CPT-4: 68746 11/05/2017 ([id number]) OFFICE/OUTPATIENT VISIT EST Diagnosis: Allergic urticaria[ICD10: L50.0] Gely HYMAN DO [facility] CPT-4: 60752 09/09/2017 ([id number]) OFFICE/OUTPATIENT VISIT EST Diagnosis: Generalized enlarged lymph nodes[ICD10: R59.1] Diagnosis: Acute gastritis without bleeding[ICD10: K29.00] Gely HYMAN [facility] CPT-4: 21124 08/07/2017 ([id number]) OFFICE/OUTPATIENT VISIT EST Diagnosis: Type 2 diabetes mellitus without complications[ICD10: E11.9] Diagnosis: Mixed hyperlipidemia[ICD10: E78.2] Diagnosis: Essential (primary) hypertension[ICD10: I10] Neela HYMAN DO [facility] CPT-4: 59694 08/04/2017 ([id number]) OFFICE/OUTPATIENT VISIT EST Diagnosis: Zoster without complications[ICD10: B02.9] Diagnosis: Acute sialoadenitis[ICD10: K11.21] Gely HYMAN DO [facility] CPT-4: 12364 06/04/2017 OFFICE/OUTPATIENT VISIT EST Diagnosis: Zoster without complications[ICD10: B02.9] Diagnosis: Acute sialoadenitis[ICD10: K11.21] Gely HYMAN [facility] CPT-4: 78604 06/02/2017 ([id number]) OFFICE/OUTPATIENT VISIT EST Diagnosis: Type 2 diabetes mellitus without complications[ICD10: E11.9] Diagnosis: Mixed hyperlipidemia[ICD10: E78.2] Diagnosis: Essential (primary) hypertension[ICD10: I10] Diagnosis: Chronic obstructive pulmonary disease, unspecified[ICD10: J44.9] Neela HYMAN [facility] CPT-4: 32331 05/05/2017 OFFICE/OUTPATIENT VISIT EST Diagnosis: Chronic obstructive pulmonary disease with acute lower respiratory infection[ICD10: J44.0] Diagnosis: Impacted cerumen, bilateral[ICD10: H61.23] Gely HYMAN [facility] CPT-4: 44642 04/10/2017 ([id number]) OFFICE/OUTPATIENT VISIT EST Diagnosis: FLU VACCINE[ICD10: Z23] Neela BUI [facility] CPT-4: 08199 03/28/2017 ([id number]) OFFICE/OUTPATIENT VISIT EST Diagnosis: Type 2 diabetes mellitus without complications[ICD10: E11.9] Diagnosis: Mixed hyperlipidemia[ICD10: E78.2] Diagnosis: Essential (primary) hypertension[ICD10: I10] Diagnosis: Chronic obstructive pulmonary disease, unspecified[ICD10: J44.9] Neela HYMAN DO [facility] CPT-4: 78652 02/03/2017 ([id number]) OFFICE/OUTPATIENT VISIT EST Diagnosis: Type 2 diabetes mellitus with hyperglycemia[ICD10: E11.65] Diagnosis: Mixed hyperlipidemia[ICD10: E78.2] Diagnosis: Essential (primary) hypertension[ICD10: I10] Diagnosis: Chronic obstructive pulmonary disease, unspecified[ICD10: J44.9] Neela HYMAN DO [facility] CPT-4: 26897 10/30/2016 ([id number]) NO CHARGE Diagnosis: Acute bronchitis, unspecified[ICD10: J20.9] Sammi HYMAN [employer] [facility] CPT-4: 17153 08/30/2016 ([id number]) OFFICE/OUTPATIENT VISIT EST Diagnosis: Acute bronchitis, unspecified[ICD10: J20.9] Diagnosis: Other seasonal allergic rhinitis[ICD10: J30.2] Sammi HYMAN [employer] [facility] CPT-4: 87641 08/27/2016 ([id number]) OFFICE/OUTPATIENT VISIT EST Diagnosis: Type 2 diabetes mellitus without complications[ICD10: E11.9] Diagnosis: Mixed hyperlipidemia[ICD10: E78.2] Diagnosis: Essential (primary) hypertension[ICD10: I10] Neela HYMAN [employer] [facility] CPT-4: 47528 07/02/2016 ([id number]) OFFICE/OUTPATIENT VISIT EST Diagnosis: Acute bronchitis, unspecified[ICD10: J20.9] Sammi HYMAN [employer] [facility] CPT-4: 55157 06/14/2016 ([id number]) OFFICE/OUTPATIENT VISIT EST Diagnosis: Acute bronchitis, unspecified[ICD10: J20.9] Sammi HYMAN [employer] [facility] CPT-4: 02034 06/13/2016 ([id number]) OFFICE/OUTPATIENT VISIT EST Diagnosis: Essential (primary) hypertension[ICD10: I10] Neela HYMAN [employer] [facility] CPT-4: 93006 05/14/2016 ([id number]) OFFICE/OUTPATIENT VISIT EST Diagnosis: Essential (primary) hypertension[ICD10: I10] Neela HYMAN [employer] [facility] CPT-4: 06105 04/29/2016 ([id number]) OFFICE/OUTPATIENT VISIT EST Diagnosis: Unspecified abdominal pain[ICD10: R10.9] Diagnosis: Left lower quadrant pain[ICD10: R10.32] Diagnosis: Left upper quadrant pain[ICD10: R10.12] Diagnosis: Essential (primary) hypertension[ICD10: I10] Neela HYMAN DO [facility] CPT-4: 60496 04/22/2016 ([id number]) OFFICE/OUTPATIENT VISIT EST Diagnosis: Type 2 diabetes mellitus without complications[ICD10: E11.9] Diagnosis: Mixed hyperlipidemia[ICD10: E78.2] Diagnosis: Essential (primary) hypertension[ICD10: I10] Neela HYMAN [facility] [facility] CPT-4: 02891 04/01/2016 ([id number]) OFFICE/OUTPATIENT VISIT EST Diagnosis: Type 2 diabetes mellitus with hyperglycemia[ICD10: E11.65] Diagnosis: Mixed hyperlipidemia[ICD10: E78.2] Diagnosis: Essential (primary) hypertension[ICD10: I10] Neela HYMAN [facility] [facility] [employer] [facility] CPT-4: 48332 11/30/2015 ([id number]) OFFICE/OUTPATIENT VISIT EST Diagnosis: Type 2 diabetes mellitus with diabetic neuropathy, unspecified[ICD10: E11.40] Diagnosis: Essential (primary) hypertension[ICD10: I10] Diagnosis: Mixed hyperlipidemia[ICD10: E78.2] Neela HYMAN [facility] [facility] [employer] [facility] CPT-4: 26793 08/29/2015 ([id number]) OFFICE/OUTPATIENT VISIT EST Diagnosis: COUGH[ICD10: R05] Diagnosis: Wheezing[ICD10: R06.2] Diagnosis: Type 2 diabetes mellitus with diabetic neuropathy, unspecified[ICD10: E11.40] Neela HYMAN [facility] [facility] CPT-4: 59376 08/14/2015 ([id number]) OFFICE/OUTPATIENT VISIT EST Diagnosis: Other seasonal allergic rhinitis[ICD10: J30.2] Diagnosis: Dyspnea, unspecified[ICD10: R06.00] Diagnosis: Wheezing[ICD10: R06.2] Sammi Najera NEELA JulissaMendez [facility] CPT-4: 15041 08/09/2015 ([id number]) OFFICE/OUTPATIENT VISIT EST Diagnosis: Essential (primary) hypertension[ICD10: I10] Diagnosis: Type 2 diabetes mellitus with hyperglycemia[ICD10: E11.65] Diagnosis: Mixed hyperlipidemia[ICD10: E78.2] Neela STERLING Octavio HYMAN [employer] [facility] CPT-4: 50442 05/22/2015 ([id number]) OFFICE/OUTPATIENT VISIT EST Diagnosis: 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] Diagnosis: - I - HYPERTENSION[ICD9: 401.9] Diagnosis: - I - HYPERLIPIDEMIA NEC/NOS[ICD9: 272.4] Diagnosis: Left hand paresthesia[ICD9: 782.0] Neela STERLING JulissaMendez YENNI [facility] CPT-4: 68848 02/13/2015 ([id number]) OFFICE/OUTPATIENT VISIT EST Diagnosis: HYPERLIPIDEMIA NEC/NOS[ICD9: 272.4] Diagnosis: 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] Neela MURILLO JulissaMendez YENNI [employer] [facility] CPT-4: 87767 11/07/2014 ([id number]) OFFICE/OUTPATIENT VISIT EST Diagnosis: ALLERGIC RHINITIS[ICD9: 477.9] Diagnosis: WHEEZING[ICD9: 786.07] Neela Cunningham SERGEMANOLO Gerald [employer] [facility] CPT-4: 13349 10/04/2014 ([id number]) OFFICE/OUTPATIENT VISIT EST Diagnosis: BRONCHITIS, ACUTE[ICD9: 466.0] Diagnosis: WHEEZING[ICD9: 786.07] Loren Cunningham SERGEMANOLO R [employer] [facility] CPT-4: 92327 09/22/2014 ([id number]) OFFICE/OUTPATIENT VISIT EST Diagnosis: DYSPNEA[ICD9: 786.09] Diagnosis: WHEEZING[ICD9: 786.07] Diagnosis: Arrhythmia[ICD9: 427.9] Loren Cunningham SERGEUSHA ER [employer] [facility] CPT-4: 75092 09/21/2014 ([id number]) OFFICE/OUTPATIENT VISIT EST Diagnosis: DM W/O COMPLICATION TYPE II, 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] Diagnosis: - I - HYPERLIPIDEMIA NEC/NOS[ICD9: 272.4] Diagnosis: - I - HYPERTENSION[ICD9: 401.9] Neela Sergeushahao ANNNEELA [facility]issaMendez [facility] CPT-4: 57968 06/28/2014 OFFICE/OUTPATIENT VISIT EST Diagnosis: SINUSITIS, ACUTE[ICD9: 461.9] Diagnosis: OTITIS MEDIA NOS[ICD9: 382.9] Sarah OchoaDanie MURILLO JulissaMendez [facility] CPT-4: 40579 06/10/2014 ([id number]) OFFICE/OUTPATIENT VISIT EST Diagnosis: 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] Diagnosis: - I - HYPERLIPIDEMIA NEC/NOS[ICD9: 272.4] Diagnosis: - I - HYPERTENSION[ICD9: 401.9] Neela Sergechristina MURILLO [facility]issaMendez [facility] CPT-4: 54290 03/29/2014 ([id number]) OFFICE/OUTPATIENT VISIT EST Diagnosis: 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] Diagnosis: - I - HYPERTENSION[ICD9: 401.9] Diagnosis: - I - HYPERLIPIDEMIA NEC/NOS[ICD9: 272.4] Diagnosis: Hand lesion[ICD9: 709.9] Neela MURILLO JulissaMendez [facility] CPT-4: 28676 11/30/2013 ([id number]) OFFICE/OUTPATIENT VISIT EST Diagnosis: 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] Diagnosis: HYPERLIPIDEMIA NEC/NOS[ICD9: 272.4] Diagnosis: HYPERTENSION[ICD9: 401.9] Neela MURILLO JulissaMendez SERGE CHRISTINA [facility] CPT-4: 06570 08/03/2013 ([id number]) OFFICE/OUTPATIENT VISIT EST Diagnosis: DM 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, 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] Diagnosis: HYPERTENSION[ICD9: 401.9] Diagnosis: HYPERLIPIDEMIA NEC/NOS[ICD9: 272.4] Neela GREGORIO [facility]issaMendez [facility] CPT-4: 46249 04/06/2013 ([id number]) OFFICE/OUTPATIENT VISIT EST Diagnosis: 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] Diagnosis: HYPERLIPIDEMIA NEC/NOS[ICD9: 272.4] Diagnosis: HYPERTENSION[ICD9: 401.9] Neela Yenni NEELA JulissaMendez SERGE VASQUEZ [facility] CPT-4: 20230 12/01/2012 ([id number]) OFFICE/OUTPATIENT VISIT EST Diagnosis: 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] Diagnosis: HYPERTENSION[ICD9: 401.9] Diagnosis: HYPERLIPIDEMIA NEC/NOS[ICD9: 272.4] Neela GREGORIO JulissaMendez YENNI [facility] CPT-4: 75552 08/04/2012 ([id number]) OFFICE/OUTPATIENT VISIT EST Diagnosis: URINARY FREQUENCY[ICD9: 788.41] Neela MURILLO JulissaMendez YENNI [facility] CPT-4: 01208 06/01/2012 OFFICE/OUTPATIENT VISIT EST Diagnosis: Agitation[ICD9: 307.9] Diagnosis: Frequent urination[ICD9: 788.41] Janet Cunningham SERGENEHAO [facility] CPT-4: 59373 05/29/2012 OFFICE/OUTPATIENT VISIT EST Diagnosis: SINUSITIS, ACUTE[ICD9: 461.9] Diagnosis: OTALGIA[ICD9: 388.70] Neela MURILLO JulissaMendez YENNI [facility] CPT-4: 60041 05/25/2012 OFFICE/OUTPATIENT VISIT EST Diagnosis: DM W/O COMPLICATION TYPE II, 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] Diagnosis: HYPERTENSION[ICD9: 401.9] Diagnosis: HYPERLIPIDEMIA NEC/NOS[ICD9: 272.4] Neela GREGORIO JulissaMendez YENNI [facility] CPT-4: 27129 04/07/2012 OFFICE/OUTPATIENT VISIT EST Diagnosis: FINGER INJURY[ICD9: 959.5] Janet Cunningham [facility] CPT-4: 63691 12/16/2011 ([id number]) OFFICE/OUTPATIENT VISIT EST Diagnosis: DM 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 ORENDER DO [facility] CPT-4: 86602 12/03/2011 ([id number]) OFFICE/OUTPATIENT VISIT EST Diagnosis: 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] Diagnosis: HYPERLIPIDEMIA NEC/NOS[ICD9: 272.4] Diagnosis: HYPERTENSION[ICD9: 401.9] Neela Cunningham ORE NDER DO [facility] CPT-4: 16139 08/29/2011 OFFICE/OUTPATIENT VISIT EST Diagnosis: 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] Diagnosis: HYPERLIPIDEMIA NEC/NOS[ICD9: 272.4] Diagnosis: HYPERTENSION[ICD9: 401.9] Neela MURILLO SMendez ORE NDER DO [facility] CPT-4: 76166 05/30/2011 OFFICE/OUTPATIENT VISIT EST Diagnosis: SKIN SENSATION DISTURB[ICD9: 782.0] Neela Sergeushahao ANNJYOTIAdam GREGORIO S. ORENDER DO [facility] CPT-4: 27534 01/29/2011 OFFICE/OUTPATIENT VISIT EST Diagnosis: SKIN SENSATION DISTURB[ICD9: 782.0] Neela Sergeushahao ANNJYOTIAdam GREGORIO S. ORENDER DO [facility] CPT-4: 22181 01/14/2011 OFFICE/OUTPATIENT VISIT EST Neela MURILLO S. ORE NDER DO [facility] CPT- 4: 47418 01/01/2011 OFFICE/OUTPATIENT VISIT EST Neela Yenni ANNQUELINE S. ORE NDER DO [facility] CPT- 4: 21758 11/29/2010 ([id number]) OFFICE/OUTPATIENT VISIT EST Neela Sergechristina HORAN S. ORENDER DO [facility] CPT-4: 30935 08/28/2010 ([id number]) OFFICE/OUTPATIENT VISIT, EST Neela Sergechristina WILDE S. ORENDER DO [facility] CPT-4: 26829 06/05/2010 ([id number]) OFFICE/OUTPATIENT VISIT, EST Neela Sergechristina WILDE S. ORENDER DO [facility] CPT-4: 68106 02/05/2010 ([id number]) OFFICE/OUTPATIENT VISIT, EST Neela Sergechristina WILDE S. ORENDER DO [facility] CPT-4: 73289 10/09/2009 ([id number]) OFFICE/OUTPATIENT VISIT, EST Neela [facility] CPT-4: 52738 08/22/2009 Plan of Care Planned Activity Notes [...] ICD-10 : J44.1 08/10/2019 Appointment: Neela Hymantel: [address] [place] [address] ACUTE ILLNESS 08/10/2019 Visit Diagnosis Plan: Sore on toe Discussion: Keep farhat an/dry Keflex Notify if worsens ICD-9 : 709.9 ICD-10 : L98.9 07/06/2019 Appointment: Neela Hyman WPtel: [address] [place] [address] ACUTE ILLNESS 07/06/2019 Patient Education: Abdoulaye Blue [id number] https://www.Waspit/Epy.io/resources/getResource/61/9lw656cn-01k6-3d00-66 Completed 07/06/2019 Visit Diagnosis Plan: Lymphoma involving lung Discussi on: Doing weekly lab and chemo ICD-9 : 202.82 ICD-10 : C85.99 05/10/2019 Visit Diagnosis Plan: Advanced chronic obstructive pul monary disease Discussion: Continue oxygen and pulmonary rehab Follow Up: 3 months ICD-9 : 496 ICD-10 : J44.9 05/10/2019 Appointment: Neela Hymantel: [address] [place], [place] [phone] FOLLOW UP 05/10/2019 Appointment: Neela Hymantel: [address] [place] [address] he called 04/14/19-- he was at physical [...] : 202.82 ICD-10 : C85.99 03/29/2019 Appointment: Nelea Hyman WPtel: [address] [place], [place] [phone] Hospital Follow Up 03/29/2019 Appointment: Neela Hyman WPtel: [address] [place], [place] [address] [place] INJECTION 03/04/2019 Visit Diagnosis Plan: Chronic obstructiv e pulmonary disease with (acute) exacerbation Discussion: Increase SVNS with duoneb to QID Prednisone taper ICD-9 : 491.21 ICD-10 : J44.1 01/05/2019 Visit Diagnosis Plan: Other nonspecific abnormal findi ng of lung field Discussion: Referral to pulmonology--will likely need bronchoscopy--path results discussed ICD-9 : 786.6 ICD-10 : R91.8 01/05/2019 Appointment: Neela Hyman WPtel: [address] [place], [place] [phone] FOLLOW UP 01/05/2019 Patient Education: prednisone- [employer] Coupon [id number] https://www.Epy.io.Content Savvy/sampleHeatmaps/resources/getResource/61/s2kr3387-977u-8b40-it Completed 01/05/2019 Care Plan: Referral Order SNOMED-CT : 30 [id number] Pending 01/05/2019 Appointment: Neela Hyman WPtel: [address] [place], [place] [address] [place] CANCELED 12/21/2018 Visit Diagnosis Plan: Solitary pulmonary nodule Discus esmer: CT guided needle biopsy of RUL lung mass ICD-9 : 793.11 ICD-10 : R91.1 12/09/2018 Visit Diagnosis Plan: Tinea corporis Discussion: Diflu can--hold simvastatin and fenofibrate while taking ICD-9 : 110.5 ICD-10 : B35.4 12/09/2018 Appointment: Neela Hyman WPtel: [address] [place], [place] [phone] [place] FOLLOW UP 12/09/2018 Appointment: Gely Harp [address] [place] [address] [place] NO SHOW 12/01/2018 Visit Diagnosis Plan: [...] : J98.4 11/24/2018 Appointment: Neela Hyman WPtel: [address] [place], [place] [phone] [place] FOLLOW UP 11/24/2018 Care Plan: PET IMAGE FULL BODY LOINC : 4 2711-2 Pending 11/24/2018 Appointment: Neela Hyman WPtel: [address] [place], [place] [phone] [place] Consult 09/21/2018 Visit Diagnosis Plan: Pneumonia, unspecified organism Discussion: Patient clinically improved. Recent CT scan from 09/07 showed unresolved right upper lobe pneumonia. Finished another 7 days of levaquin. Will repeat CBC early next week. Order sent with patient to get done at [facility]. FU CT recommended in 4 weeks. Patient states understanding. ICD-9 : 486 ICD-10 : J18.9 09/16/2018 Appointment: Amita Henderson [address] [place], [place] [phone] [place] FOLLOW UP 09/16/2018 Visit Diagnosis Plan: Pneumonia, unspecified organism Discussion: Clinically patient feels and looks much better but need CT scan of chest due to ongoing round pneumonia in association with his known lymphoma ICD-9 : 486 ICD-10 : J18.9 09/03/2018 Appointment: Neela Hyman WPtel: [phone] [id number] FOLLOW UP 09/03/2018 Care Plan: CT THORAX [...] ICD-10 : Z87.01 08/27/2018 Appointment: Amita Henderson [address] [place], [place] [phone] [place] FOLLOW UP 08/27/2018 Visit Diagnosis Plan: Other [...] : I10 08/13/2018 [facility] [facility] FOLLOW UP 08/13/2018 Appointment: [facility] [place] CANCELED 08/13/2018 Patient Education: prednisone- [employer] Coupon [id number] https://www.Waspit/Epy.io/resources/getResource/61/do95su6v-3g72-0dl7-5t Completed 08/13/2018 Visit Diagnosis Plan: Other specified [...] ICD-10 : J18.9 08/11/2018 App[facility]ment[facility] ACUTE ILLNESS 08/11/2018 Care Plan: CHEST X-RAY 2VW FRONTAL&LATL LOINC : 33638-3 Pending 07/20/2018 Visit Diagnosis Plan: Dyspnea, unspecified Discussion: CXR- to be completed at the hospital. Will call with results and any adjustments in plan. Solumedrol 125 administered in clinic Prednisone 20 mg BID x 5 days- start tomorrow ICD-9 : 786.09 ICD-10 : R06.00 07/16/2018 Appointment: Amita Henderson [address] [place], [place] [id number] ACUTE ILLNESS 07/16/2018 Patient Education: prednisone- [employer] Coupon [id number] https://www.Waspit/Epy.io/resources/getResource/61/62y9w8qo-yz06-7ub5-p1 Completed 07/16/2018 Visit Diagnosis Plan: Acute bronchitis due to other sp ecified organisms Discussion: Kenalog 40 mg IM administered in clinic. Doxycycline called into [facility]. Take as directed. Continue nebulizer and Trelegy. Follow up if symptoms are not improving with treatment regimen. Patient states understanding of all instruction. ICD-9 : 466.0 ICD-10 : J20.8 07/13/2018 Appointment: Amita Henderson [address] [place], [place] [phone] ACUTE ILLNESS 07/13/2018 Patient Education: doxycycline hyclate- [employer] Cou saritha [id number] https://www.Epy.io.Content Savvy/Epy.io/resources/getResource/61/6c269e43-0c7c-9663-8d Completed 07/13/2018 Care Plan: [place] : [address]-9 Pending 07/13/2018 Care Plan: CBC Pending 07/13/2018 Care Plan: A1C HPLC LOINC : 47920-3 Pending 07/13/2018 Visit Diagnosis Plan: Mixed hyperlipidemia [...] : I10 06/03/2018 Appointment: Neela Hyman WPtel: [address] [place] [address] [place] FOLLOW UP 06/03/2018 Visit Diagnosis Plan: [...] ICD-10 : J44.9 05/04/2018 Appointment: Gely Harp [address] [place] [address] ACUTE ILLNESS 05/04/2018 Visit Diagnosis Plan: Localized edema Discussion: Cont inue lasix and potassium at every other day Recheck lab and fwup in 3mos Follow Up: 3 months ICD-9 : 782.3 ICD-10 : R60.0 03/03/2018 Appointment: Neela Hyman WPtel: [address] [place] [address] FOLLOW UP 03/03/2018 Patient Education: Patient Medication Summary Completed 03/03/2018 Visit Diagnosis Plan: Localized edema Discussion: Finch ge lasix and potassium to every other day Check Chem 7 in 2 weeks and fwup ICD-9 : 782.3 ICD-10 : R60.0 02/17/2018 Appointment: Neela Hyman WPtel: [address] [place] [address] FOLLOW UP 02/17/2018 Patient Education: Patient Medication [...] : R60.0 02/10/2018 Appointment: Neela Hyman WPtel: [facility] [facility] 02/10/2018 Patient Education: Patient [...] L02.212 11/05/2017 Appointment: Neela Hyman WPtel: [phone] [facility] FO[facility] 11/05/2017 Patient Education: Patient Medication Summary Completed 11/05/2017 Patient Education: Patient Medication Summary Completed 11/03/2017 Care Plan: [place] : [address]-6 Pending 11/03/2017 Care Plan: LIPID PANEL LOINC : 42946-0 Pending 11/03/2017 Care Plan: CBC Pending 11/03/2017 Care Plan: A1C HPLC [facility] : 53184-9 Pending 11/03/2017 Visit Diagnosis Plan: Allergic urticaria [...] ICD-10 : L50.0 09/09/2017 Appointment: Gely Harp [address] [place], [place] [phone] ACUTE ILLNESS 09/09/2017 Patient Education: Patient Medication [...] ICD-10 : R59.1 08/07/2017 Appointment: Gely Harp [address] [place], [place] [phone] Hospital Follow Up 08/07/2017 Patient Education: Patient Medication Summary Completed 08/07/2017 Visit Diagnosis Plan: Type 2 diabetes mellitus without complications Discussion: Accuchecks daily Lab discussed Continue current meds ICD-9 : 250.00 ICD-10 : E11.9 08/04/2017 Visit Diagnosis Plan: Essential (primary) hypertension Discussion: Increase Cardizem CD to 360mg daily ICD-9 : 401.9 ICD-10 : I10 08/04/2017 Appointment: Neela Hyman WPtel: [phone] [facility] FOLLOW UP 08/04/2017 Patient Education: Patient Medication Summary Completed 08/04/2017 Patient Education: Patient Medication Summary Completed 07/31/2017 Care Plan: [place] : [address]-6 Pending 07/31/2017 Care Plan: ASSAY THYROID STIM HORMONE Pen ding 07/31/2017 Care Plan: LIPID PANEL LOINC : 61498-6 Pending 07/31/2017 Care Plan: CBC Pending 07/31/2017 Care Plan: A1C HPLC LOINC : 00549-5 Pending 07/31/2017 Patient Education: Patient Medication Summary Completed 06/19/2017 Patient Education: Patient Medication Summary Completed 06/09/2017 Care Plan: CT SOFT TISSUE [place] : 76[address]-1 Pending 06/09/2017 Visit Diagnosis Plan: Acute sialoadenitis [...] : B02.9 06/04/2017 Appointment: Gely Harp [address] [facility] ACUTE ILLNESS 06/04/2017 Patient Education: Patient Medication [...] ICD-10 : B02.9 06/02/2017 Appointment: Gely Harp [address] [place], [place] [phone] ACUTE ILLNESS 06/02/2017 Patient Education: Patient Medication [...] E11.9 05/05/2017 Appointment: Neela Hyman WPtel: [phone] [facility] FOLLOW UP 05/05/2017 Patient Education: Patient Medication Summary Completed 05/05/2017 Patient Education: Patient Medication Summary Completed 05/01/2017 Care Plan: A1C HPLC [facility] : 57004-8 Pending 05/01/2017 Visit Diagnosis Plan: Chronic obstructiv [...] ICD-10 : H61.23 04/10/2017 Appointment: Gely Harp [address] [place], [place] [address] ACUTE ILLNESS 04/10/2017 Patient Education: Patient Medication Summary Completed 04/10/2017 Appointment: Neela Hyman WPtel: [phone] [facility] INJECTION 03/28/2017 Patient Education: Patient Medication Summary [...] J44.9 02/03/2017 Appointment: Neela Hyman WPtel: [phone] [facility] [facility] FOLLOW UP 02/03/2017 Patient Education: Patient Medication Summary Completed 02/03/2017 Patient Education: Patient Medication Summary Completed 01/30/2017 Care Plan: [place] : [address]-0 Pending 01/30/2017 Care Plan: LIPID PANEL LOINC : 20212-3 Pending 01/30/2017 Care Plan: CBC Pending 01/30/2017 Care Plan: A1C HPLC LOINC : 75673-8 Pending 01/30/2017 Care Plan: ASSAY OF PSA [...] : E11.65 10/30/2016 Appointment: Neela Hyman WPtel: [facility] US 10/29 lm ~sl 10/30 confirmed~sl FOLLOW [...] Sammi Najera [facility] [facility] 4/6 rang and rang rang 08/30 rang and [...] ICD-10 : J20.9 08/27/2016 Appointment: Sammi Najera [address] [place], [place] [address] FOLLOW UP 08/27/2016 Patient Education: Patient Medication Summary Completed 08/27/2016 Care Plan: Referral Order SNOMED-CT : 30 5195916 Pending 08/27/2016 Visit Diagnosis Plan: Type 2 [...] : I10 07/02/2016 Appointment: Neela Hyman WPtel: [address] [place], [place] [address] 07/01 rang and rang`sl FOLLOW UP 7 Patient Education: Patient Medication Summary Completed 07/02/2016 Patient Education: Patient Medication Summary Completed 06/27/2016 Care Plan: LIPID PANEL LOINC : 42960-3 Pending 06/27/2016 Care Plan: [place] : [address]-9 Pending 06/27/2016 Care Plan: A1C HPLC LOINC : 83045-1 Pending 06/27/2016 Visit Diagnosis Plan: Acute bronchitis, [...] ICD-10 : J20.9 06/14/2016 Appointment: Sammi Najera [address] [place] [address] FOLLOW UP 06/14/2016 Patient Education: Patient Medication [...] ICD-10 : J20.9 06/13/2016 Appointment: Sammi Najera [address] [place] [address] ACUTE ILLNESS 06/13/2016 Patient Education: Patient Medication Summary Completed 06/13/2016 Care Plan: CHEST X-RAY 2VW FRONTAL&LATL LOINC : 56258-8 Pending 06/13/2016 Visit Plan: Increase metoprolol to 100mg po BID BP readings and BP check in 1month 05/14/2016 Appointment: Neela Hyman WPtel: [address] [place], [place] [address] 05/13 rang and rang`sl FOLLOW UP 6 Patient Education: Patient Medication Summary Completed 05/14/2016 Visit Plan: Increase metoprolol to 50mg BID BP check in 1 week f/u BP appt 2 weeks consider musculoskeletal if pain returns 04/29/2016 Appointment: Neela Hyman WPtel: [address] [place], [place] [phone] 04/25 confimred~sl FOLLOW UP 04/29/2016 Patient Education: Patient Medication Summary Completed 04/29/2016 Visit Plan: Stat CT scan of abdomen/pelv is to look for stone Hydrate and use tramadol prn Increase metoprolol to 25mg po BID Will see urology pending CT scan results 04/22/2016 Appointment: Neela Hyman WPtel: [facility] 04/17 confirmed-sp ACUTE ILLNESS 04/22/2016 Patient Education: [...] flu shot 04/01/2016 Appointment: Neela Hyman WPtel: [address] [place], [place] [phone] [place] FOLLOW UP 04/01/2016 Patient Education: Patient Medication Summary Completed 04/01/2016 Patient Education: [facility] - Saving AutoInj - 18-64 - Dynamic Heber l ID Completed 04/01/2016 Patient Education: Patient Medication Summary Completed 03/28/2016 Care Plan: A1C HPLC LOINC : 78096-6 Pending 03/28/2016 Care Plan: [place] : [address]-9 Pending 03/28/2016 Visit Plan: Lab discussed Continue curre nt meds Accuchecks daily 11/30/2015 Appointment: Neela Hyman WPtel: [facility] 11/28 confirmed~sl FOLLOW UP 11/30/2015 Patient Education: Patient Medication Summary Completed 11/30/2015 Appointment: Neela Hyman WPtel: [facility] [facility] RESCHEDULED 11/28/2015 Patient Education: Patient Medication Summary Completed 11/23/2015 Care Plan: [place] : [address]-8 Pending 11/23/2015 Care Plan: LIPID PANEL LOINC : 98441-7 Pending 11/23/2015 Care Plan: CBC Pending 11/23/2015 Care Plan: A1C HPLC LOINC : 44491-1 Pending 11/23/2015 Visit Plan: Lab discussed Accuchecks richard ly Continue current meds Cymbalta helping with feet and mood 08/29/2015 Appointment: Neela Hyman WPtel: [address] [place], [place] [phone] [place] FOLLOW UP 08/29/2015 Patient Education: Patient Medication Summary Completed 08/29/2015 Visit Plan: Check CXR Stop all steroids and steroid inhalers Use SVN with but change to duoneb Add singulair for allergy etiology Change fluoxetine to cymbalta 60mg daily Viagra samples given to try prn--warned of no nitrates 08/14/2015 Appointment: Neela Hyman WPtel: [address] [place], [place] [phone] lm to reschedule ~sl 07/27 lm ~sl 08/09 busy 08/10 conf irmed-sp Annual Well Visit 08/14/2015 Patient Education: Patient Medication Summary Completed 08/14/2015 Care Plan: CHEST X-RAY 2VW FRONTAL&LATL LOINC : 84165-0 Ordered 08/14/2015 Visit Plan: Decadron 8mg given [...] as expected 08/09/2015 Appointment: Sammi Najera [address] [facility] ER Follow UP 08/09/2015 Patient Education: Patient Medication Summary Completed 08/09/2015 Patient Education: [facility] - Saving AutoInj - 18-64 - [...] with it 05/22/2015 Appointment: Neela Hyman WPtel: [address] [place], [place] [phone] 05/17 confirmed~sl FOLLOW UP 05/22/2015 Patient Education: Patient Medication Summary Completed 05/22/2015 Patient Education: Patient Medication Summary Completed 05/15/2015 Visit Plan: Obtain EMGs done at [place] from when fractured left arm Lab discussed Accuchecks daily 02/13/2015 Appointment: Neela Hyman WPtel: [address] [place], [place] [address] 02/10 confrimed FOLLOW UP 02/13/2015 Patient Education: Patient Medication Summary Completed 02/13/2015 Patient Education: Patient Medication Summary Completed 02/09/2015 Visit Plan: discussed lab add fenofibrat e 134mg po daily recheck fasting lab in 3 months, CBC, CMP, Lipids, hgb AIC 11/07/2014 Appointment: Neela Hyman WPtel: [address] [place], [place] [address] 11/04 appt confirmed cn FOLLOW UP 015 Patient Education: Patient Medication Summary Completed 11/07/2014 Patient Education: Patient Medication Summary Completed 11/03/2014 Visit Plan: Continue loratadine 10mg richard ly Notify if symptoms return 10/04/2014 Appointment: eNela Hyman WPtel: [facility] [facility] confirmed on 10/03 at 2:42pm FOLLOW UP 09/23 Patient Education: Patient Medication Summary Completed 10/04/2014 Appointment: Neela Hyman WPtel: [address] [place] [address] ACUTE ILLNESS 09/28/2014 Appointment: Loren Garza WPtel: [address] [place], [place] [address] FOLLOW UP 09/22/2014 Patient Education: Patient Medication Summary Completed 09/22/2014 Appointment: Loren Garza WPtel: [address] [place], [place] [address] ACUTE ILLNESS 09/21/2014 Patient Education: Patient Medication Summary Completed 09/21/2014 Patient Education: [facility] - Saving AutoInj - 18+ - Dynamic Portal ID Completed 09/21/2014 Visit Plan: Lab discussed Continue daily accuchecks Continue current meds 06/28/2014 Appointment: Neela Hyman WPtel: [address] [place] [address] FOLLOW UP 06/28/2014 Patient Education: Patient Medication Summary Completed 06/28/2014 Patient Education: Patient Medication Summary Completed 06/23/2014 Appointment: Sarah Sunshine WPtel: [address] [place] [address] ACUTE ILLNESS 06/10/2014 Patient Education: Patient Medication Summary Completed 06/10/2014 Patient Education: [facility] - Saving AutoInj - 18+ - Dynamic Portal ID Completed 06/10/2014 Visit Plan: Lab discussed Continue daily accuchecks Continue current meds 03/29/2014 Appointment: Neela Hyman WPtel: [address] [place] [address] [place] FOLLOW UP 03/29/2014 Patient Education: Patient Medication Summary Completed 03/29/2014 Patient Education: Patient Medication Summary Completed 03/23/2014 Visit Plan: Lab discussed Continue curre nt meds and accuchecks See surgery for removal of hand lesion 11/30/2013 Appointment: Neela Hyman WPtel: [address] [place] [address] 11/29 no answer FOLLOW UP 11/30/2013 Patient Education: Patient Medication Summary Completed 11/30/2013 Visit Plan: Lab discussed Continue curre nt meds 08/03/2013 Appointment: Neela Hyman WPtel: [address] [place] [address] FOLLOW UP 08/03/2013 Patient Education: Patient Medication Summary Completed 08/03/2013 Visit Plan: Lab Discussed Will continue current meds and pt will get back on diet/exercise Check lab in 4mos and fwup 04/06/2013 Appointment: Neela Hyman WPtel: [address] [place] [address] FOLLOW UP 04/06/2013 Patient Education: Patient Medication Summary Completed 04/06/2013 Visit Plan: Lab discussed Continue daily accuchecks 12/01/2012 Appointment: Neela Hyman WPtel: [address] [place] [address] 11/30 no answer FOLLOW UP 12/01/2012 Patient Education: Patient Medication Summary Completed 12/01/2012 Visit Plan: Continue current meds and da russell accuchecks Lab discussed 08/04/2012 Appointment: Neela Hyman WPtel: [address] [place], [place] [phone] FOLLOW UP 08/04/2012 Patient Education: Patient Medication Summary Completed 08/04/2012 Appointment: Neela Hyman WPtel: [address] [place], [place] [phone] UA 06/01/2012 Patient Education: Patient Medication Summary Completed 06/01/2012 Appointment: Janet Jean Baptiste WPtel: [address] [place] [address] [place] FOLLOW UP 05/29/2012 Patient Education: Patient Medication Summary Completed 05/29/2012 Visit Plan: pt states Dr. Hyman told h is to increase his Prozac dose while she was talking to her at [employer]. Discussed that pt. should not increase or decrease dosage without Dr's knowledge. Pt. will seek hearing test here in town at the hearing aid place on [address]. Discussed that ear pain is likely caused by sinus pressure. Pt. will notify if no improvement. 05/25/2012 Appointment: Janet Jean Baptiste WPtel: [address] [place] [address] ACUTE ILLNESS 05/25/2012 Patient Education: Patient Medication Summary Completed 05/25/2012 Visit Plan: Continue current meds Contin ue daily accuchecks but alternate times Increase fish oil to 3gm daily 04/07/2012 Appointment: Neela Hyman WPtel: [address] [place] [address] 04/06 FOLLOW UP 04/07/2012 Patient Education: Patient Medication Summary Completed 04/07/2012 Appointment: Janet Jean Baptiste WPtel: [address] [place] [address] ACUTE ILLNESS 12/16/2011 Patient Education: Patient Medication Summary Completed 12/16/2011 Visit Plan: Increase 12/03/2011 Appointment: Neela Hyman WPtel: [address] [place] [address] FOLLOW UP 12/03/2011 Patient Education: Patient Medication Summary Completed 12/03/2011 Visit Plan: Continue current meds Contin ue accuchecks 08/29/2011 Appointment: Neela Hyman WPtel: [address] [place], [place] [phone] FOLLOW UP 08/29/2011 Patient Education: Patient Medication Summary Completed 08/29/2011 Visit Plan: Continue current meds except restart zocor 05/30/2011 Appointment: Neela Hyman WPtel: [address] [place] [address] FOLLOW UP 05/30/2011 Patient Education: Patient Medication Summary Completed 05/30/2011 Visit Plan: Continue tennis elbow strap May go back to weight-lifing--light weigts every other day 01/29/2011 Appointment: Neela Hyman WPtel: [address] [place], [place] [id number] FOLLOW UP 01/29/2011 Patient Education: Patient Medication Summary Completed 01/29/2011 Visit Plan: Continue tennis elbow strap and anti-inflammatories 01/14/2011 Appointment: Neela Hyman WPtel: [address] [place] [address] FOLLOW UP 01/14/2011 Appointment: Jaent Jean Baptiste WPtel: [address] [place], [place] [phone] NEW PATIENT 01/14/2011 Patient Education: Patient Medication Summary Completed 01/14/2011 Appointment: Neela Hyman WPtel: [address] [place] [address] FOLLOW UP 01/08/2011 Appointment: Neela Hyman WPtel: [address] [place], [place] [phone] FOLLOW UP 01/01/2011 Appointment: Neela Hyman WPtel: [address] [place] [address] UA 01/01/2011 Patient Education: Patient Medication Summary [...] given. 11/29/2010 Appointment: Janet Jean Baptiste WPtel: [address] [place], [place] [phone] ACUTE ILLNESS 11/29/2010 Patient Education: Patient Medication Summary Completed 11/29/2010 Visit Plan: Cont current meds Check CMP, Lipids, HbA1C 08/28/2010 Appointment: Neela Hymanl: [address] [place], [place] [phone] FOLLOW UP 08/28/2010 Patient Education: Patient Medication Summary Completed 08/28/2010 Visit Plan: Cont current meds and accuch ecks Add Zocor 40mg q HS Check Lipids and HbA1C in 3mos 06/05/2010 Appointment: Neela Hyman WPtel: [address] [place] [address] FOLLOW UP 06/05/2010 Patient Education: Patient Medication Summary Completed 06/05/2010 Visit Plan: Check Lipids and HbA1C 02/05/2010 Appointment: Neela Hyman WPtel: [address] [place] [address] FOLLOW UP 02/05/2010 Patient Education: Patient Medication Summary Completed 02/05/2010 Visit Plan: HbA1C in 3mos. Continue Accu checks BID alternating times. Check HbA1C, CMP, Lipids 10/09/2009 Appointment: Neela Hyman WPtel: [address] [place] [address] FOLLOW UP 10/09/2009 Patient Education: Patient Medication Summary Completed 10/09/2009 Visit Plan: Saline nasal flushes prn. Ty lenol/Motrin prn headache. Notify if persists/symptoms worsening. 08/22/2009 Appointment: Neela Hyman WPtel: [address] [place] [address] ACUTE ILLNESS 08/22/2009 Patient Education: Patient Medication Summary Completed 08/22/2009 Referral: [facility] [phone] [id number] [place] Office will verfy his insurance then they will contact patient Completed Referral: Shahbaz Brennan WPtel: [address] [facility] [address] [id number] [place] Referral Completed Referral: Ion Levi [address] [facility] C&D [id number] [place] Referral Appointment Requested Referral: Ion Levi [address] [facility] C&D [id number] [place] Referral Appointment Requested Instructions Comment . [...] with it . Obtain EMGs done at [place] from when fractured left arm Lab discussed [...] while she was talking to her at [facility]. Discussed that pt. should not increase or decrease dosage without Dr's knowledge. Pt. will seek hearing test here in town at the hearing aid place on [address]. Discussed that ear pain is likely caused [...]
--- OUTSIDE RECORDS SUMMARY | 2019-12-09 09:10 | XMS REPORT | CCD ---
Author Author Michael Hyman D.O. Organization [facility] DO [facility] Address [address] [place] [address] Phone Care Team Providers Care Safety Supervisor Name Role Phone Neela Hyman D.O., PP Unavailable CCM Unavailable Summary Purpose Interface Exchange Insurance Providers Payer name Policy type / Coverage type Covered democrat ID Effective Begin Date Effective End Date ABS FOR [employer] Commercial Insurance [id number] Unknown Family History Family History data not found Social History Social History Element Codes Description Effective Dates Marital status Unknown 05/30/[address]: 2654712 Former smoker quit 25 years ago 01/01/2011 [...] chloride ER 20 mEq tablet,extended release RxNorm: 728504 1 Tablet(s) Oral two times a day 07/22/2019 10/19/2019 Active metformin 500 mg tablet RxNorm: 296798 2 Tablet(s) Oral two afshan es a day 07/13/2019 09/11/2019 Active Singulair 10 mg tablet RxNorm: 203846 TAKE ONE TABLET BY MOUTH EVERY EVENING 07/06/2019 01/02/2020 Active Reselected prescribe r from [facility] to [facility] Keflex 500 mg capsule RxNorm: 555292 1 Capsule(s) Oral three ti mes a day 07/06/2019 07/13/2019 Inactive Singulair 10 mg tablet RxNorm: 535228 TAKE ONE TABLET BY MOUTH EVERY EVENING 06/22/2019 07/05/2019 Inactive Reselected prescribe r from PEG MAHER to [facility] Zocor 40 mg tablet RxNorm: 465829 TAKE ONE TABLET BY M OUTH EVERY NIGHT AT BEDTIME 06/21/2019 11/17/2019 Active MagOx 400 mg (241.3 mg magnesium) tablet RxNorm: 000099 1 Table t(s) Oral QD 06/21/2019 08/20/2019 Active diltiazem ER 360 mg capsule,24 hr,extended release RxNorm: 8 17351 TAKE ONE CAPSULE BY MOUTH AT BEDTIME -REPLACES 300MG 05/17/2019 11/12/2019 Active MagOx 400 mg (241.3 mg magnesium) tablet RxNorm: 199871 1 Table t(s) Oral QD 04/26/2019 06/20/2019 Inactive Lasix 40 mg tablet RxNorm: 456439 40 MG PO DAILY 04/12/2019 No Stop Da te Active Benicar 40 mg tablet RxNorm: 143118 1 Tablet(s) Oral QD 03/29/2019 Active potassium chloride ER 20 mEq tablet,extended release RxNorm: 066125 1 Tablet(s) Oral two times a day 03/29/2019 06/27/2019 Inactive potassium chloride ER 20 mEq tablet,extended release RxNorm: 468451 1 Tablet(s) Oral QD 03/29/2019 03/28/2019 Inactive Benicar 40 mg tablet RxNorm: 994940 1 Tablet(s) Oral QD 03/29/2019 Inactive MagOx 400 mg (241.3 mg magnesium) tablet RxNorm: 120586 1 Table t(s) Oral QD 03/29/2019 04/25/2019 Inactive metformin 500 mg tablet RxNorm: 960351 2 Tablet(s) Oral two afshan es a day 03/29/2019 07/12/2019 Inactive fenofibrate micronized 134 mg capsule RxNorm: 200682 TA KE ONE CAPSULE BY MOUTH EVERY DAY 03/05/2019 08/31/2019 Active duloxetine 60 mg capsule,delayed release RxNorm: 912561 1 Capsu le(s) PO QD 01/28/2019 07/26/2019 Inactive Trelegy Ellipta 100 mcg-62.5 mcg-25 mcg powder for inhalatio n RxNorm: 1141031 1 Puff(s) INH QD 01/06/2019 12/31/2019 Active 90 day supply prednisone 20 mg tablet RxNorm: 800711 1 Tablet(s) PO T ID for 3 days then 1 po BID for 3 days then 1 po daily for 3 days 01/05/2019 03/28/2019 Inacti ve metformin ER 1,000 mg tablet,extended release 24hr RxNorm: 1 276830 TAKE TWO TABLETS (1000MG) BY MOUTH TWO TIMES A DAY 12/22/2018 07/13/2019 Inacti ve Diflucan 100 mg tablet RxNorm: 468393 1 Tablet(s) PO QD 12/09/2018 Inactive prednisone 20 mg tablet RxNorm: 596547 1 Tablet(s) PO B ID for 4 days then 1 po daily for 4 days 11/24/2018 01/04/2019 Inactive albuterol sulfate 2.5 mg/3 mL (0.083 %) solution for n ebulization RxNorm: 623681 3 Milliliter(s) INH ONE VIAL VIA NEBULIZER EVERY 4 HOURS 07/21/2019 Inactive [AttnRPh: Saving apply/adjudicate RxGRP: SG20 RxBIN:[id number] RxPCN: ID#:[id number]] Trelegy Ellipta 100 mcg-62.5 mcg-25 mcg powder for inhalatio n RxNorm: 1695236 1 Puff(s) INH QD 10/27/2018 01/06/2019 Inactive 90 day supply metoprolol succinate ER 100 mg tablet,extended release 24 hr RxNorm: 126415 TAKE ONE TABLET BY MOUTH TWICE A DAY 10/13/2018 07/09/2019 Inactive diltiazem ER 360 mg capsule,24 hr,extended release RxNorm: 8 60202 TAKE ONE CAPSULE BY MOUTH AT BEDTIME -REPLACES 300MG 10/13/2018 04/10/2019 Inactive Trelegy Ellipta 100 mcg-62.5 mcg-25 mcg powder for inhalatio n RxNorm: 0326438 INHALE ONE PUFF ONCE DAILY 09/07/2018 10/27/2018 Inactive Levaquin 750 mg tablet RxNorm: 682950 1 Tablet(s) PO QD 09/07/2018 Inactive Levaquin 750 mg tablet RxNorm: 817513 1 Tablet(s) PO QD 09/07/2018 Inactive prednisone 20 mg tablet RxNorm: 955300 2 Tablet(s) PO QAM 08/13/2018 08/19/2018 Inactive Levaquin 500 mg tablet RxNorm: 162139 1 Tablet(s) PO QD 08/11/2018 Inactive fenofibrate micronized 134 mg capsule RxNorm: 875925 TA KE ONE CAPSULE BY MOUTH EVERY DAY 08/10/2018 02/05/2019 Inactive prednisone 20 mg tablet RxNorm: 339504 1 Tablet(s) PO BID 07/16/2018 07/20/2018 Inactive doxycycline hyclate 100 mg capsule RxNorm: 9264015 1 Capsule(s) PO BID 07/13/2018 07/22/2018 Inactive duloxetine 60 mg capsule,delayed release RxNorm: 229591 TAKE ONE CAPSULE BY MOUTH ONCE A DAY 07/08/2018 01/28/2019 Inactive Lasix 40 mg tablet RxNorm: 154470 1 TABLET(S) PO QAM 06/08/201809/05 Inactive potassium chloride ER 20 mEq tablet,extended release(p art/cryst) RxNorm: 0008926 1 TABLET(S) PO QD 06/08/2018 09/05/2018 Inactive metformin ER 1,000 mg tablet,extended release 24hr RxNorm: 1 942987 TAKE TWO TABLETS (1000MG) BY MOUTH TWO TIMES A DAY 06/01/2018 11/27/2018 Inacti ve Benicar HCT 40 mg-25 mg tablet RxNorm: 953145 TAKE ONE TABLET BY MOUTH ONCE DAILY 05/11/2018 03/28/2019 Inactive Zocor 40 mg tablet RxNorm: 036985 TAKE ONE TABLET BY M OUTH EVERY NIGHT AT BEDTIME 05/11/2018 06/20/2019 Inactive Trelegy Ellipta 100 mcg-62.5 mcg-25 mcg powder for inhalatio n RxNorm: 4422380 1 PUFF(S) INH QD 04/06/2018 07/04/2018 Inactive diltiazem ER 360 mg capsule,24 hr,extended release RxNorm: 8 82684 1 Capsule(s) PO QHS replaces 300mg dose 03/30/2018 09/25/2018 Inactive Trelegy Ellipta 100 mcg-62.5 mcg-25 mcg powder for inhalatio n RxNorm: 4650086 1 Puff(s) INH QD 02/24/2018 02/23/2018 Inactive Trelegy Ellipta 100 mcg-62.5 mcg-25 mcg powder for inhalatio n RxNorm: 4790571 1 Puff(s) INH QD 02/24/2018 02/23/2018 Inactive Trelegy Ellipta 100 mcg-62.5 mcg-25 mcg powder for inhalatio n RxNorm: 3828491 1 Puff(s) INH QD 02/24/2018 04/05/2018 Inactive Lasix 40 mg tablet RxNorm: 257440 1 Tablet(s) PO QAM 02/10/201803/11 Inactive potassium chloride ER 20 mEq tablet,extended release(p art/cryst) RxNorm: 4851056 1 Tablet(s) PO QD 02/10/2018 03/11/2018 Inactive fenofibrate micronized 134 mg capsule RxNorm: 489591 1 Capsule( s) PO QD 01/30/2018 07/28/2018 Inactive metoprolol succinate ER 100 mg tablet,extended release 24 hr RxNorm: 028172 TAKE ONE TABLET BY MOUTH TWICE A DAY 12/30/2017 09/25/2018 Inactive metformin ER 1,000 mg tablet,extended release 24hr RxNorm: 1 688041 1 Tablet(s) PO BID 11/17/2017 05/15/2018 Inactive [SAVINGS FOR NON -COVERED DRUGS -- BIN:016258, PCN: ASPROD1, Group: XXXXX, ID# [id number], Questions: . THIS IS NOT INSURANCE.] Benicar HCT 40 mg-25 mg tablet RxNorm: 384351 1 Tablet(s) PO QD 05/10/2018 Inactive [SAVINGS FOR NON-COVERED JESU GS -- BIN:854445, PCN: ASPROD1, Group: XXXXX, ID# [id number], Questions: . THIS IS NOT INSURANCE.] Bactroban 2 % topical cream RxNorm: 442844 Application TOP BID 10/2409/02/2018 Inactive clindamycin HCl 300 mg capsule RxNorm: 640302 2 Capsule(s) PO TID 0 11/05/2017 11/18/2017 Inactive duloxetine 60 mg capsule,delayed release RxNorm: 449646 Capsule(s) TAKE ONE CAPSULE BY MOUTH ONCE DAILY 09/24/2017 09/23/2017 Inactive triamcinolone acetonide 0.1 % topical ointment RxNorm: 9466342 1 TOP BID 09/09/2017 11/04/2017 Inactive Bactrim DS 800 mg-160 mg tablet RxNorm: 555279 1 Tablet(s) PO BID 0 08/07/2017 08/13/2017 Inactive metronidazole 500 mg tablet RxNorm: 968776 1 Tablet(s) PO BID 08/0708/13/2017 Inactive diltiazem ER 360 mg capsule,24 hr,extended release RxNorm: 8 88658 1 Capsule(s) PO QHS replaces 300mg dose 08/04/2017 01/30/2018 Inactive fenofibrate micronized 134 mg capsule RxNorm: 967131 1 Capsule( s) PO QD 07/21/2017 01/30/2018 Inactive Zocor 40 mg tablet RxNorm: 311002 1 Tablet(s) PO QHS 07/21/201705/10 Inactive GB duloxetine 60 mg capsule,delayed release RxNorm: 120015 Capsule(s) TAKE ONE CAPSULE BY MOUTH ONCE DAILY 06/24/2017 09/24/2017 Inactive Cleocin HCl 300 mg capsule RxNorm: 358626 2 Capsule(s) PO BID 06/0206/08/2017 Inactive acyclovir 800 mg tablet RxNorm: 510006 1 Tablet(s) PO 5x day 201706/08/2017 Inactive diltiazem ER 300 mg capsule,24 hr,extended release RxNorm: 8 46649 1 Capsule(s) PO QHS replaces 240mg dose 05/05/2017 08/03/2017 Inactive ipratropium-albuterol 0.5 mg-3 mg(2.5 mg base)/3 mL ne bulization soln RxNorm: 8585211 1 Unit Dose INH Q4H as needed 05/05/2017 01/04/2019 Inactive metformin ER 1,000 mg tablet,extended release 24hr RxNorm: 1 260958 1 Tablet(s) PO BID 04/28/2017 11/17/2017 Inactive [SAVINGS FOR NON -COVERED DRUGS -- BIN:177235, PCN: ASPROD1, Group: XXXXX, ID# [id number], Questions: . THIS IS NOT INSURANCE.] diltiazem ER (XR/XT) 240 mg capsule,extended release 2 4 hr, controlled RxNorm: 078579 TAKE ONE CAPSULE BY MOUTH EVERY DAY 04/15/2017 05/04/2017 Inact avani prednisone 20 mg tablet RxNorm: 315875 1 Tablet(s) PO QD 04/10/2017 1 06/14/2016 Inactive Breo Ellipta 200 mcg-25 mcg/dose powder for inhalation RxNor m: 8128883 1 Puff(s) INH QD 04/10/2017 02/09/2018 Inactive Breo Ellipta 200 mcg-25 mcg/dose powder for inhalation RxNor m: 3723403 1 Puff(s) INH QD 04/10/2017 04/09/2017 Inactive Levaquin 500 mg tablet RxNorm: 566824 1 Tablet(s) PO QD 04/10/2017 Inactive metoprolol succinate ER 100 mg tablet,extended release 24 hr RxNorm: 942007 TAKE ONE TABLET BY MOUTH TWICE A DAY 03/24/2017 12/18/2017 Inactive fenofibrate micronized 134 mg capsule RxNorm: 872327 1 Capsule( s) PO QD 01/16/2017 07/21/2017 Inactive Benicar HCT 40 mg-25 mg tablet RxNorm: 769368 1 Tablet(s) PO QD 11/17/2017 Inactive [SAVINGS FOR NON-COVERED JESU GS -- BIN:576303, PCN: ASPROD1, Group: XXXXX, ID# [id number], Questions: . THIS IS NOT INSURANCE.] metoprolol succinate ER 100 mg tablet,extended release 24 hr RxNorm: 353927 1 Tablet(s) PO BID 10/16/2016 03/23/2017 Inactive diltiazem ER (XR/XT) 240 mg capsule,extended release 2 4 hr, controlled RxNorm: 798822 1 Capsule(s) PO QD 10/16/2016 04/13/2017 Inactive [SAVINGS FOR NON- COVERED DRUGS -- BIN:358993, PCN: ASPROD1, Group: XXXXX, ID# [id number], Questions: . THIS IS NOT INSURANCE.] metformin ER 1,000 mg tablet,extended release 24hr RxNorm: 8 97979 1 Tablet(s) PO BID 10/16/2016 04/28/2017 Inactive [SAVINGS FOR NON -COVERED DRUGS -- BIN:159284, PCN: ASPROD1, Group: XXXXX, ID# [id number], Questions: . THIS IS NOT INSURANCE.] Zocor 40 mg tablet RxNorm: 333108 1 Tablet(s) PO QHS 10/16/201607/21 Inactive GB Singulair 10 mg tablet RxNorm: 098440 Tablet(s) 1 TABLET(S) PO QHS 08/27/2016 09/02/2018 Inactive prednisone 20 mg tablet RxNorm: 843893 1 Tablet(s) PO QD 08/27/2016 0 08/31/2016 Inactive ipratropium-albuterol 0.5 mg-3 mg(2.5 mg base)/3 mL ne bulization soln RxNorm: 6841086 1 Unit Dose INH Q4H as needed 08/27/2016 05/04/2017 Inactive metoprolol succinate ER 100 mg tablet,extended release 24 hr RxNorm: 637701 TAKE ONE TABLET BY MOUTH TWICE A DAY 08/05/2016 10/16/2016 Inactive duloxetine 60 mg capsule,delayed release RxNorm: 667205 TAKE ONE CAPSULE BY MOUTH ONCE DAILY 08/05/2016 06/24/2017 Inactive prednisone 20 mg tablet RxNorm: 168213 1 Tablet(s) PO QD 06/14/2016 0 06/18/2016 Inactive ipratropium-albuterol 0.5 mg-3 mg(2.5 mg base)/3 mL ne bulization soln RxNorm: 4247021 1 Unit Dose INH Q4H as needed 06/13/2016 08/26/2016 Inactive Levaquin 500 mg tablet RxNorm: 284156 1 Tablet(s) PO QD 06/13/2016 Inactive metoprolol succinate ER 100 mg tablet,extended release 24 hr RxNorm: 110216 1 Tablet(s) PO BID replaces 50mg dose 05/14/2016 07/12/2016 Inactive metoprolol succinate ER 50 mg tablet,extended release 24 hr RxNorm: 182168 1 Tablet(s) PO BID 04/29/2016 05/13/2016 Inactive prednisone 20 mg tablet RxNorm: 744314 1 Tablet(s) PO BID 04/22/2016 04/21/2016 Inactive prednisone 20 mg tablet RxNorm: 781259 1 Tablet(s) PO BID 04/22/2016 04/28/2016 Inactive Singulair 10 mg tablet RxNorm: 166224 Tablet(s) 1 TABLET(S) PO QHS 04/01/2016 08/26/2016 Inactive metoprolol succinate ER 25 mg tablet,extended release 24 hr RxNorm: 618414 1 Tablet(s) PO QHS for blood pressure 04/01/2016 05/13/2016 Inactive fenofibrate micronized 134 mg capsule RxNorm: 708478 TA KE ONE CAPSULE BY MOUTH DAILY 01/25/2016 01/16/2017 Inactive duloxetine 60 mg capsule,delayed release RxNorm: 262838 TAKE ONE CAPSULE BY MOUTH ONCE DAILY 01/25/2016 08/04/2016 Inactive Zocor 40 mg tablet RxNorm: 727448 TAKE ONE TABLET BY MOUTH AT B EDTIME 11/13/2015 10/16/2016 Inactive GB metformin ER 1,000 mg tablet,extended release 24hr RxNorm: 8 89741 1 Tablet(s) PO BID 10/26/2015 10/16/2016 Inactive [SAVINGS FOR NON -COVERED DRUGS -- BIN:546584, PCN: ASPROD1, Group: XXXXX, ID# [id number], Questions: . THIS IS NOT INSURANCE.] Benicar HCT 40 mg-25 mg tablet RxNorm: 952207 1 Tablet(s) PO QD 06/201511/11/2016 Inactive [SAVINGS FOR NON-COVERED JESU GS -- BIN:513818, PCN: ASPROD1, Group: XXXXX, ID# [id number], Questions: . THIS IS NOT INSURANCE.] diltiazem ER (XR/XT) 240 mg capsule,extended release,control led RxNorm: 134075 1 Capsule(s) PO QD 10/26/2015 10/15/2016 Inactive [SAVINGS FOR NO N-COVERED DRUGS -- BIN:036902, PCN: ASPROD1, Group: XXXXX, ID# [id number], Questions: . THIS IS NOT INSURANCE.] Singulair 10 mg tablet RxNorm: 005427 1 TABLET(S) PO QHS 09/18/2015 1 05/31/2015 Inactive Viagra 100 mg tablet RxNorm: 851627 1 Tablet(s) PO as needed 201511/23/2018 Inactive Singulair 10 mg tablet RxNorm: 235014 1 Tablet(s) PO QHS 08/16/2015 0 08/15/2015 Inactive Singulair 10 mg tablet RxNorm: 248080 1 Tablet(s) PO QHS 08/16/2015 0 09/14/2015 Inactive duloxetine 60 mg capsule,delayed release RxNorm: 691575 1 Capsule(s) PO QD replaces fluoxetine 08/14/2015 01/24/2016 Inactive ipratropium-albuterol 0.5 mg-3 mg(2.5 mg base)/3 mL ne bulization soln RxNorm: 5730266 1 Unit Dose INH Q4H as needed 08/14/2015 06/12/2016 Inactive prednisone 20 mg tablet RxNorm: 761027 Take 3 tabs PO o nce daily x 3 days, then 2 tabs PO once daily x 3 days and then 1 tab PO once daily x 3 days 08/09/2015 08/13/2015 Inactive Symbicort 160 mcg-4.5 mcg/actuation HFA aerosol inhaler RxNo rm: 1671040 2 Puff(s) INH BID 08/09/2015 08/13/2015 Inactive Zocor 40 mg tablet RxNorm: 057327 1 Tablet(s) PO QHS 05/23/201511/11 Inactive [AttnRPh: Saving apply/adjudicate RxGRP: SG20 RxBIN:[id number] RxPCN:HT ID#:[id number]] Benicar HCT 40 mg-25 mg tablet RxNorm: 288735 1 Tablet(s) PO QD 10/26/2015 Inactive [SAVINGS FOR NON-COVERED JESU GS -- BIN:788777, PCN: ASPROD1, Group: XXXXX, ID# [id number], Questions: . THIS IS NOT INSURANCE.] diltiazem ER (XR/XT) 240 mg capsule,extended release,control led RxNorm: 059016 1 Capsule(s) PO QD 04/24/2015 10/20/2015 Inactive [SAVINGS FOR NO N-COVERED DRUGS -- BIN:488905, PCN: ASPROD1, Group: XXXXX, ID# [id number], Questions: . THIS IS NOT INSURANCE.] fluoxetine 40 mg capsule RxNorm: 808453 1 Capsule(s) PO QD 04/24/20 15 08/13/2015 Inactive [SAVINGS FOR NON-COVERED JESU GS -- BIN:293978, PCN: ASPROD1, Group: XXXXX, ID# XXXXXXX, Questions: . THIS IS NOT INSURANCE.] Zocor 40 mg tablet RxNorm: 851751 TABLET(S) 1 TABLET(S) PO QHS 01/2505/23/2015 Inactive [AttnRPh: Saving apply/adjud icate RxGRP:SG20 RxBIN:[id number] RxPCN: ID#:[id number]] metformin ER 1,000 mg tablet,extended release 24hr RxNorm: 8 41041 1 TABLET(S) PO BID 01/29/2015 10/26/2015 Inactive [SAVINGS FOR NON -COVERED DRUGS -- BIN:325872, PCN: ASPROD1, Group: XXXXX, ID# XXXXXXX, Questions: . THIS IS NOT INSURANCE.] fenofibrate micronized 134 mg capsule RxNorm: 095175 1 CAPSULE( S) PO QD 01/23/2015 01/17/2016 Inactive fenofibrate micronized 134 mg capsule RxNorm: 112997 1 Capsule( s) PO QD 11/07/2014 01/22/2015 Inactive diltiazem ER (XR/XT) 240 mg capsule,extended release,control led RxNorm: 309970 1 Capsule(s) PO QD 10/24/2014 04/24/2015 Inactive [SAVINGS FOR NO N-COVERED DRUGS -- BIN:772150, PCN: ASPROD1, Group: XXXXX, ID# XXXXXXX, Questions: . THIS IS NOT INSURANCE.] Benicar HCT 40 mg-25 mg tablet RxNorm: 751308 1 Tablet(s) PO QD 05/201404/24/2015 Inactive [SAVINGS FOR NON-COVERED JESU GS -- BIN:172731, PCN: ASPROD1, Group: XXXXX, ID# XXXXXXX, Questions: . THIS IS NOT INSURANCE.] fluoxetine 40 mg capsule RxNorm: 225538 1 Capsule(s) PO QD 10/25/1904/24/2015 Inactive [SAVINGS FOR NON-COVERED JESU GS -- BIN:617165, PCN: ASPROD1, Group: XXXXX, ID# XXXXXXX, Questions: . THIS IS NOT INSURANCE.] azithromycin 500 mg tablet RxNorm: 405622 1 Tablet(s) PO QD 015 09/27/2014 Inactive [SAVINGS FOR NON-COVERED JESU GS -- BIN:288241, PCN: ASPROD1, Group: XXXXX, ID# XXXXXXX, Questions: . THIS IS NOT INSURANCE.] albuterol sulfate 2.5 mg/3 mL (0.083 %) solution for n ebulization RxNorm: 709723 3 Milliliter(s) INH ONE VIAL VIA NEBULIZER EVERY 4 HOURS 015 11/19/2014 Inactive [AttnRPh: Saving apply/adjudicate RxGRP: SG20 RxBIN:[id number] RxPCN: ID#:[id number]] Zocor 40 mg tablet RxNorm: 173089 TABLET(S) 1 TABLET(S ) PO QHS 1 TABLET(S) PO QHS 09/04/2014 02/21/2015 Inactive [AttnRPh: Saving apply/adjudicate RxGRP:SG20 RxBIN:[id number] RxPCN: ID#:[id number]] metformin ER 1,000 mg tablet,extended release 24hr RxNorm: 8 58209 1 Tablet(s) PO BID 08/04/2014 01/28/2015 Inactive [SAVINGS FOR NON -COVERED DRUGS -- BIN:446011, PCN: ASPROD1, Group: XXXXX, ID# XXXXXXX, Questions: . THIS IS NOT INSURANCE.] Bromfed DM 2 mg-30 mg-10 mg/5 mL syrup RxNorm: 8713558 1 -2 Teaspoon(s) PO Q4H as needed for cough 06/10/2014 06/19/2014 Inactive [SAVINGS FOR UN INSURED PATIENTS -- BIN:572474, PCN: ASPROD1, Group: AME08, ID# [id number], Process claim through [employer], for questions: . THIS IS NOT INSURANCE.] Augmentin 875 mg-125 mg tablet RxNorm: 552182 1 Tablet(s) PO Q12H 0 06/10/2014 06/19/2014 Inactive [AttnRPh: Saving apply/adjud icate RxGRP:SG20 RxBIN:[id number] RxPCN: ID#:[id number]] Zocor 40 mg tablet RxNorm: 124040 Tablet(s) 1 TABLET(S ) PO QHS 1 TABLET(S) PO QHS 05/25/2014 08/22/2014 Inactive [AttnRPh: Saving apply/adjudicate RxGRP:SG20 RxBIN:[id number] RxPCN:HT ID#:[id number]] fluoxetine 40 mg capsule RxNorm: 375164 1 Capsule(s) PO QD 04/29/20 14 10/24/2014 Inactive [AttnRPh: Saving apply/adjud icate RxGRP:SG20 RxBIN:[id number] RxPCN:HT ID#:[id number]] diltiazem ER (XR/XT) 240 mg capsule,extended release,control led RxNorm: 479638 1 Capsule(s) PO QD 04/29/2014 10/24/2014 Inactive [AttnRPh: Leonelin g apply/adjudicate RxGRP:SG20 RxBIN:[id number] RxPCN:HT ID#:[id number]] Benicar HCT 40 mg-25 mg tablet RxNorm: 279282 1 Tablet(s) PO QD 09/201310/24/2014 Inactive [AttnRPh: Saving apply/adjud icate RxGRP:SG20 RxBIN:[id number] RxPCN:HT ID#:[id number]] Zocor 40 mg tablet RxNorm: 058194 1 TABLET(S) PO QHS 1 TABLET(S ) PO QHS 03/07/2014 05/25/2014 Inactive [AttnRPh: Saving chelsie ly/adjudicate RxGRP:SG20 RxBIN:[id number] RxPCN:HT ID#:[id number]] Zocor 40 mg tablet RxNorm: 468248 1 Tablet(s) PO QHS 1 TABLET(S ) PO QHS 12/06/2013 03/05/2014 Inactive [AttnRPh: Saving chelsie ly/adjudicate RxGRP:SG20 RxBIN:[id number] RxPCN:HT ID#:[id number]] diltiazem ER (XR/XT) 240 mg capsule,extended release,control led RxNorm: 818818 1 Capsule(s) PO QD 10/25/2013 04/22/2014 Inactive [AttnRPh: Leonelin g apply/adjudicate RxGRP:SG20 RxBIN:[id number] RxPCN:HT ID#:[id number]] fluoxetine 40 mg capsule RxNorm: 537761 1 Capsule(s) PO QD 10/26/19 14 04/22/2014 Inactive [AttnRPh: Saving apply/adjud icate RxGRP:SG20 RxBIN:[id number] RxPCN:HT ID#:[id number]] Zocor 40 mg tablet RxNorm: 008791 1 Tablet(s) PO QHS 1 TABLET(S ) PO QHS 09/13/2013 12/06/2013 Inactive metformin ER 1,000 mg tablet,extended release 24hr RxNorm: 8 03426 Tablet(s) PO TAKE 1 TABLET BY MOUTH TWICE DAILY (REPLACES 500MG DOSE) 07/26/201303/2015 Inactive diltiazem ER (XR/XT) 240 mg capsule,extended release,control led RxNorm: 155488 1 Capsule(s) PO QD 05/03/2013 10/25/2013 Inactive fluoxetine 40 mg capsule RxNorm: 511930 1 Capsule(s) PO QD 05/03/20 13 10/25/2013 Inactive Benicar HCT 40 mg-25 mg tablet RxNorm: 217314 1 Tablet(s) PO QD 01/201304/29/2014 Inactive Zocor 40 mg tablet RxNorm: 820746 1 Tablet(s) PO QHS 12/10/201209/13 Inactive fluoxetine 40 mg capsule RxNorm: 879034 1 Capsule(s) PO QD 11/10/19 13 05/03/2013 Inactive diltiazem ER (XR/XT) 240 mg capsule,extended release,control led RxNorm: 051577 1 Capsule(s) PO QD 11/09/2012 05/03/2013 Inactive Benicar HCT 40 mg-25 mg tablet RxNorm: 267696 1 Tablet(s) PO QD 05/03/2013 Inactive metformin ER 1,000 mg tablet,extended release 24hr RxNorm: 8 33170 Tablet(s) PO TAKE 1 TABLET BY MOUTH TWICE DAILY (REPLACES 500MG DOSE) 08/05/201206/2013 Inactive Zocor 40 mg tablet RxNorm: 342787 1 Tablet(s) PO QHS 06/15/201212/09 Inactive fluoxetine 40 mg capsule RxNorm: 955883 1 Capsule(s) PO QD 05/15/20 12 11/08/2012 Inactive Neurontin 600 mg Tab RxNorm: 009533 1 Tablet(s) PO QHS 12/03/2011 Inactive metformin ER 1,000 mg tablet,extended release 24hr RxNorm: 8 09874 1 Tablet(s) PO BID replaces 500mg dose 12/03/2011 07/26/2013 Inactive Zocor 40 mg tablet RxNorm: 855418 1 Tablet(s) PO QHS 12/03/201106/15 Inactive fluoxetine 20 mg capsule RxNorm: 242634 1 Capsule(s) PO QD 12/03/19 12 05/24/2012 Inactive diltiazem ER (XR/XT) 240 mg capsule,extended release,control led RxNorm: 011130 1 Capsule(s) PO QD 11/15/2011 11/09/2012 Inactive Benicar HCT 40 mg-25 mg tablet RxNorm: 453920 1 Tablet(s) PO QD 02/16/2012 Inactive metformin ER 500 mg 24 hr Tab RxNorm: 959966 1 Tablet(s) PO BID 12/02/2011 Inactive Zocor 40 mg Tab RxNorm: 986789 1 Tablet(s) PO QHS 05/30/2011 11/25/19 12 Inactive fluoxetine 20 mg Cap RxNorm: 981308 1 Capsule(s) PO QD 05/28/2011 Inactive Neurontin 600 mg Tab RxNorm: 094474 1 Tablet(s) PO QHS 05/28/2011 Inactive Neurontin 600 mg Tab RxNorm: 834710 1 Tablet(s) PO QHS 02/22/201106/2011 Inactive Neurontin 600 mg Tab RxNorm: 554703 1 Tablet(s) PO QHS 01/14/2011 Inactive Neurontin 300 mg Cap RxNorm: 908507 1 Capsule(s) PO QHS 01/14/2011 Inactive Neurontin 600 mg Tab RxNorm: 145641 1 Tablet(s) PO QHS 01/14/2011 Inactive Medrol (Vipul) 4 mg Tabs in a Dose Pack RxNorm: 352112 Tablet(s) PO 0 01/02/2011 08/28/2011 Inactive as directed fluoxetine 20 mg Cap RxNorm: 591064 1 Capsule(s) PO QD 12/10/201006/2011 Inactive Zocor 40 mg Tab RxNorm: 992428 1 Tablet(s) PO QHS 12/03/2010 05/29/19 12 Inactive Neurontin 300 mg Cap RxNorm: 529802 1 Capsule(s) PO QHS 12/03/2010 Inactive Septra DS 800 mg-160 mg Tab RxNorm: 426357 1 Tablet(s) PO BID 11/2912/08/2010 Inactive diltiazem ER (XR/XT) 240 mg Continuous Release Cap RxNorm: 8 05272 1 Capsule(s) PO QD 11/20/2010 11/15/2011 Inactive Neurontin 300 mg Cap RxNorm: 418664 1 Capsule(s) PO QHS 11/06/2010 Inactive Neurontin 300 mg Cap RxNorm: 742513 1 Capsule(s) PO QHS 11/06/2010 Inactive Celebrex 200 mg Cap RxNorm: 687823 1 Capsule(s) PO BID 10/24/2010 Inactive fluoxetine 20 mg Cap RxNorm: 488279 1 Capsule(s) PO QD 06/07/201003/2011 Inactive Zocor 40 mg Tab RxNorm: 828145 1 Tablet(s) PO QHS 06/05/2010 12/02/19 11 Inactive Benicar HCT 40 mg-25 mg Tab RxNorm: 334278 1 Tablet(s) PO QD 200908/21/2011 Inactive Diltiazem 240 mg Continuous Release Cap RxNorm: 666378 1 Capsul e(s) PO QD 11/09/2009 09/02/2018 Inactive Avelox 400 mg Tab RxNorm: 150454 1 Tablet(s) PO QD 08/22/2009 010 Inactive ProAir HFA 90 mcg/actuation aerosol inhaler RxNorm: 074668 2 Puff(s) INH Q4H as needed No Start Date Active tramadol 50 mg tablet RxNorm: 624665 1-2 Tablet(s) PO TID as ne eded for pain No Start Date Active Tylenol Arthritis 650 mg Tab RxNorm: 1412429 2 Tablet(s) PO QD No Sta rt Date Active Celebrex 200 mg Cap RxNorm: 143915 1 Capsule(s) PO BID No Start Date 08/08/2015 Inactive Medrol (Vipul) 4 mg Tabs in a Dose Pack RxNorm: 000405 Tablet(s) PO N o Start Date 01/01/2011 Inactive as directed Promethazine-DM 6.25 mg-15 mg/5 mL Syrup RxNorm: 567101 1-2 Teaspoon(s) PO Q4H prn cough No Start Date 08/28/2011 Inactive Claritin 10 mg tablet RxNorm: 392648 1 Tablet(s) PO QD No Start Date 08/08/2015 Inactive [id number] Oral RxNorm: Oral No Start Da te 03/28/2019 Inactive Breo Ellipta 200 mcg-25 mcg/dose powder for inhalation RxNor m: 5668689 1 Puff(s) INH QD No Start Date 04/09/2017 Inactive metformin 500 mg Tab RxNorm: 968365 1 Tablet(s) PO QD No Start Date 0 08/17/2011 Inactive Diltiazem 240 mg Continuous Release Cap RxNorm: 330683 1 Capsul e(s) PO BID No Start Date 11/08/2009 Inactive fluoxetine 20 mg Cap RxNorm: 122417 1 Capsule(s) PO QD No Start Date 06/07/2010 Inactive Multivitamin & Mineral Formula Oral RxNorm: Oral No Start Da te 03/28/2019 Inactive Medrol (Vipul) 4 mg tablets in a dose pack RxNorm: 679225 Tablet(s) PO as directed No Start Date 05/28/2012 Inactive Fish Oil 1,000 mg Cap RxNorm: 1 Capsule(s) PO QD No Start Date 07/2018 Inactive Nexium 40 mg Cap RxNorm: 288323 1 Capsule(s) PO QD No Start Date 07/24 Inactive fluticasone 50 mcg/actuation nasal spray,suspension RxNorm: 4352746 2 [place] NASAL QD to each nostril No Start Date 08/03/2017 Inactive Viagra 100 mg tablet RxNorm: 031012 1 Tablet(s) PO as needed No Sta rt Date 09/17/2015 Inactive prednisone 20 mg tablet RxNorm: 750227 1 Tablet(s) PO B ID for 4 days then 1 po daily for 4 days No Start Date 11/23/2018 Inactive Benicar HCT 40 mg-25 mg Tab RxNorm: 700312 1 Tablet(s) PO QD No Sta rt [...] Date S ervice Location MICROALBUMIN URINE RANDOM 91315 MICRL MG/L 5.8 MG/L 03/2011 Unknown MICROALBUMIN URINE RANDOM 60974 XM.ALB/CRE 5.2 MG/GCR Unknown MICROALBUMIN URINE RANDOM 23902 CREAT MG/D 111 MG/DL 03/2011 Unknown MICROALBUMIN URINE RANDOM 76208 CRE/100 1.11 G/L 12/24 Unknown Procedures Procedure Codes Date FLU VACC PRSV FREE INC ANTIG 65 AND OLDER CPT-4: 36482 03/04/2019 ADMIN PNEUMOCOCCAL VACCINE CPT-4: G0009 03/04/2019 ADMIN INFLUENZA VIRUS VAC CPT-4: G0008 03/04/2019 FLU VACC PRSV FREE INC ANTIG 65 AND OLDER CPT-4: 71543 03/04/2019 PNEUMOCOCCAL VACC 23 RAYMON IM CPT-4: 93853 03/04/2019 THER/PROPH/DIAG INJ SC/IM CPT-4: 32838 08/11/2018 TRIAMCINOLONE ACET INJ NOS CPT-4: J3301 08/11/2018 DEXAMETHASONE SODIUM PHOS CPT-4: J1100 08/11/2018 THER/PROPH/DIAG INJ SC/IM CPT-4: 54116 07/16/2018 METHYLPREDNISOLONE INJECTION CPT-4: J2930 07/16/2018 INFLUENZA ASSAY W/OPTIC CPT-4: 49419 07/16/2018 THER/PROPH/DIAG INJ SC/IM CPT-4: 94676 07/13/2018 TRIAMCINOLONE ACET INJ NOS CPT-4: J3301 07/13/2018 THER/PROPH/DIAG INJ SC/IM CPT-4: 09803 05/04/2018 METHYLPREDNISOLONE INJECTION CPT-4: J2930 05/04/2018 FLU VACC PRSV FREE INC ANTIG 65 AND OLDER CPT-4: 29245 02/10/2018 PNEUMOCOCCAL VACC 13 R[facility] IM CPT-4: 65781 02/10/2018 ADMIN INFLUENZA VIRUS VAC CPT-4: G0008 02/10/2018 ADMIN PNEUMOCOCCAL VACCINE CPT-4: G0009 02/10/2018 THER/PROPH/DIAG INJ SC/IM CPT-4: 07061 09/09/2017 TRIAMCINOLONE ACET INJ NOS CPT-4: J3301 09/09/2017 ALBUTEROL NON-COMP UNIT CPT-4: J7613 04/10/2017 AIRWAY INHALATION TREATMENT CPT-4: 71154 04/10/2017 PRESCRIP TRANSMIT VIA ERX SY CPT-4: G8553 04/10/2017 FLU VACC PRSV FREE INC ANTIG 65 AND OLDER CPT-4: 34215 03/28/2017 ADMIN INFLUENZA VIRUS VAC CPT-4: G0008 03/28/2017 PRESCRIP TRANSMIT VIA ERX SY CPT-4: G8553 08/27/2016 PRESCRIP TRANSMIT VIA ERX SY CPT-4: G8553 06/14/2016 ALBUTEROL NON-COMP UNIT CPT-4: J7613 06/13/2016 AIRWAY INHALATION TREATMENT CPT-4: 68617 06/13/2016 PRESCRIP TRANSMIT VIA ERX SY CPT-4: [...] CPT-4: G8553 11/07/2014 THER/PROPH/DIAG INJ SC/IM CPT-4: 46185 09/21/2014 METHYLPREDNISOLONE INJECTION CPT-4: J2930 09/21/2014 PRESCRIP TRANSMIT VIA ERX SY CPT-4: G8553 09/21/2014 PRESCRIP TRANSMIT VIA ERX SY CPT-4: G8553 06/10/2014 URINALYSIS NONAUTO W/O SCOPE CPT-4: 34378 06/01/2012 PRESCRIP TRANSMIT VIA ERX SY CPT-4: G8553 05/25/2012 PRESCRIP TRANSMIT VIA ERX SY CPT-4: G8553 12/03/2011 CUR TOBACCO NON-USER CPT-4: G8457 05/30/2011 PRESCRIP TRANSMIT VIA ERX SY CPT-4: G8553 05/30/2011 URINALYSIS NONAUTO W/O SCOPE CPT-4: 70811 01/01/2011 URINE CULTURE/ COLONY COUNT CPT-4: 08015 01/01/2011 CUR TOBACCO NON-USER CPT-4: G8457 01/01/2011 [...] 1: 114/68 Code: 8480-6 BMI: 43.5 Code: 28995-7 Heart Rate 1: 52 bpm Height: 6'1" [...] 1: 136/72 Code: 8480-6 BMI: 42.7 Code: 71477-4 Heart Rate 1: 60 bpm Height: 6'1" Respiratory Rate: 22 bpm SpO2: 95% Tempera ture: 37.1 (C) / 98.7 (F) Weight: 324 lbs 02/10/2018 Blood Pressure 1: 146/78 Code: 8480-6 BMI: 42.4 Code: 77649-8 Heart Rate 1: 64 bpm Height: 6'1" Respiratory Rate: 22 bpm SpO2: 95% Tempera ture: 36.5 (C) / 97.7 (F) Weight: 321 lbs 11/05/2017 Blood Pressure 1: 128/84 Code: 8480-6 BMI: 42.9 Code: 49432-3 Heart Rate 1: 52 bpm Height: 6'1" Respiratory Rate: 22 bpm SpO2: 95% Tempera ture: 36.3 (C) / 97.3 (F) Weight: 325 lbs 09/09/2017 Blood Pressure 1: 162/90 Code: 8480-6 BMI: 42.5 Code: 73227-6 Heart Rate 1: 60 bpm Height: 6'1" Respiratory Rate: 24 bpm SpO2: 95% Tempera ture: 36.4 (C) / 97.6 (F) Weight: 322 lbs 08/07/2017 Blood Pressure 1: 152/90 Code: 8480-6 BMI: 42.2 Code: 01460-4 Heart Rate 1: 60 bpm Height: 6'1" Respiratory Rate: 26 bpm SpO2: 94% Tempera ture: 36.6 (C) / 97.8 (F) Weight: 320 lbs 08/04/2017 Blood Pressure 1: 150/86 Code: 8480-6 BMI: 42.7 Code: 91615-4 Heart Rate 1: 64 bpm Height: 6'1" Respiratory Rate: 20 bpm SpO2: 94% Tempera ture: 36.3 (C) / 97.3 (F) Weight: 324 lbs 06/04/2017 Blood Pressure 1: 164/90 Code: 8480-6 Heart Rate 1: 60 bpm Respiratory Rate: 24 bpm SpO2: 94% Temperature: 36.8 (C) / 98.3 (F) 06/02/2017 Blood Pressure 1: 162/80 Code: 8480-6 BMI: 42.9 Code: 76287-9 Heart Rate 1: 66 bpm Height: 6'1" Respiratory Rate: 22 bpm SpO2: 98% Tempera ture: 36.6 (C) / 97.8 (F) Weight: 325 lbs 05/05/2017 Blood Pressure 1: 164/94 Code: 8480-6 BMI: 41.4 Code: 99009-7 Heart Rate 1: 64 bpm Height: 6'1" Respiratory Rate: 22 bpm SpO2: 95% Tempera ture: 36.4 (C) / 97.5 (F) Weight: 314 lbs 04/10/2017 Blood Pressure 1: 136/78 Code: 8480-6 BMI: 42.0 Code: 71758-1 Heart Rate 1: 76 bpm Height: 6'1" Respiratory Rate: 24 bpm SpO2: 92% Tempera ture: 35.9 (C) / 96.7 (F) Weight: 318 lbs 02/03/2017 Blood Pressure 1: 134/82 Code: 8480-6 BMI: 41.7 Code: 04915-1 Heart Rate 1: 72 bpm Height: 6'1" Respiratory Rate: 24 bpm SpO2: 95% Tempera ture: 36.1 (C) / 97.0 (F) Weight: 316 lbs 10/30/2016 Blood Pressure 1: 126/74 Code: 8480-6 BMI: 41.3 Code: 51164-2 Heart Rate 1: 68 bpm Height: 6'1" Respiratory Rate: 20 bpm Temperature: 37 .1 (C) / 98.8 (F) Weight: 313 lbs 08/30/2016 Blood Pressure 1: 146/80 Code: 8480-6 BMI: 41.7 Code: 65097-5 Heart Rate 1: 64 bpm Height: 6'1" Respiratory Rate: 24 bpm SpO2: 94% Tempera ture: 36.6 (C) / 97.8 (F) Weight: 316 lbs 08/27/2016 Blood Pressure 1: 124/78 Code: 8480-6 Heart Rate 1: 66 bpm Height: 6'2" Respiratory Rate: 18 bpm SpO2: 94% Temperature: 36.6 (C) / 97.8 (F) Weight: 07/02/2016 Blood Pressure 1: 126/78 Code: 8480-6 BMI: 41.4 Code: 64382-9 Heart Rate 1: 68 bpm Height: 6'1" Respiratory Rate: 24 bpm SpO2: 94% Tempera ture: 36.6 (C) / 97.8 (F) Weight: 314 lbs 06/14/2016 Blood Pressure 1: 146/82 Code: 8480-6 Heart Rate 1: 80 bpm Respiratory Rate: 20 bpm SpO2: 95% Temperature: 37.3 (C) / 99.2 (F) 06/13/2016 Blood Pressure 1: 146/84 Code: 8480-6 BMI: 40.5 Code: 91052-1 Heart Rate 1: 66 bpm Height: 6'1" Respiratory Rate: 28 bpm SpO2: 93% Tempera ture: 35.8 (C) / 96.4 (F) Weight: 307 lbs 05/14/2016 Blood Pressure 1: 146/90 Code: 8480-6 BMI: 41.2 Code: 22201-5 Heart Rate 1: 68 bpm Height: 6'1" Respiratory Rate: 26 bpm Temperature: 36 .8 (C) / 98.2 (F) Weight: 312 lbs 04/29/2016 Blood Pressure 1: 152/90 Code: 8480-6 BMI: 41.0 Code: 31526-0 Heart Rate 1: 68 bpm Height: 6'1" Respiratory Rate: 26 bpm SpO2: 94% Tempera ture: 36.1 (C) / 96.9 (F) Weight: 311 lbs 04/22/2016 Blood Pressure 1: 152/94 Code: 8480-6 BMI: 40.9 Code: 50470-6 Heart Rate 1: 68 bpm Height: 6'1" Respiratory Rate: 24 bpm SpO2: 94% Tempera ture: 36.2 (C) / 97.2 (F) Weight: 310 lbs 04/01/2016 Blood Pressure 1: 156/78 Code: 8480-6 BMI: 40.6 Code: 23188-9 Heart Rate 1: 84 bpm Height: 6'1" Respiratory Rate: 22 bpm SpO2: 95% Tempera ture: 37.1 (C) / 98.7 (F) Weight: 308 lbs 11/30/2015 Blood Pressure 1: 142/80 Code: 8480-6 BMI: 40.5 Code: 15884-6 Heart Rate 1: 88 bpm Height: 6'1" Respiratory Rate: 22 bpm Temperature: 36 .2 (C) / 97.2 (F) Weight: 307 lbs 08/29/2015 Blood Pressure 1: 132/70 Code: 8480-6 BMI: 40.0 Code: 93787-0 Heart Rate 1: 76 bpm Height: 6'1" Respiratory Rate: 24 bpm SpO2: 96% Tempera ture: 36.7 (C) / 98.0 (F) Weight: 303 lbs 08/14/2015 Blood Pressure 1: 126/80 Code: 8480-6 BMI: 39.4 Code: 35477-9 Heart Rate 1: 92 bpm Height: 6'1" Respiratory Rate: 24 bpm SpO2: 94% Tempera ture: 37.8 (C) / 100.0 (F) Weight: 299 lbs 08/09/2015 Blood Pressure 1: 146/82 Code: 8480-6 Heart Rate 1: 82 bpm Respiratory Rate: 22 bpm SpO2: 93% Temperature: 35.9 (C) / 96.6 (F) We ight: 310 lbs 05/22/2015 Blood Pressure 1: 156/76 Code: 8480-6 BMI: 41.0 Code: 57490-3 Heart Rate 1: 100 bpm Height: 6'1" Respiratory Rate: 22 bpm Temperature: 37 .2 (C) / 98.9 (F) Weight: 311 lbs 02/13/2015 Blood Pressure 1: 166/90 Code: 8480-6 BMI: 41.2 Code: 83502-8 Heart Rate 1: 72 bpm Height: 6'1" Respiratory Rate: 24 bpm SpO2: 93% Tempera ture: 36.9 (C) / 98.5 (F) Weight: 312 lbs 11/07/2014 Blood Pressure 1: 134/70 Code: 8480-6 BMI: 40.5 Code: 85167-2 Heart Rate 1: 76 bpm Height: 6'1" Respiratory Rate: 24 bpm Temperature: 36 .9 (C) / 98.4 (F) Weight: 307 lbs 10/04/2014 Blood Pressure 1: 144/86 Code: 8480-6 BMI: 40.1 Code: 30286-2 Heart Rate 1: 76 bpm Height: 6'1" Respiratory Rate: 28 bpm Temperature: 36 .6 (C) / 97.9 (F) Weight: 304 lbs 09/22/2014 Blood Pressure 1: 142/80 Code: 8480-6 BMI: 40.0 Code: 16011-8 Heart Rate 1: 80 bpm Height: 6'1" Respiratory Rate: 22 bpm SpO2: 96% Tempera ture: 36.6 (C) / 97.8 (F) Weight: 303 lbs 09/21/2014 Blood Pressure 1: 160/66 Code: 8480-6 BMI: 40.0 Code: 37967-0 Heart Rate 1: 90 bpm Height: 6'1" Respiratory Rate: 26 bpm SpO2: 94% Tempera ture: 35.7 (C) / 96.2 (F) Weight: 303 lbs 06/28/2014 Blood Pressure 1: 132/80 Code: 8480-6 BMI: 41.0 Code: 50236-0 Heart Rate 1: 64 bpm Height: 6' Respiratory Rate: 20 bpm Temperature: 36 .7 (C) / 98.0 (F) Weight: 302 lbs 06/10/2014 Blood Pressure 1: 152/70 Code: 8480-6 BMI: 41.1 Code: 66338-1 Heart Rate 1: 76 bpm Height: 6' Respiratory Rate: 20 bpm Temperature: 36 .6 (C) / 97.8 (F) Weight: 303 lbs 03/29/2014 Blood Pressure 1: 132/78 Code: 8480-6 BMI: 40.6 Code: 53570-2 Heart Rate 1: 84 bpm Height: 6' Respiratory Rate: 22 bpm Temperature: 37 .1 (C) / 98.8 (F) Weight: 299 lbs 11/30/2013 Blood Pressure 1: 136/84 Code: 8480-6 BMI: 39.2 Code: 07977-9 Heart Rate 1: 76 bpm Height: 6' Respiratory Rate: 20 bpm Temperature: 36 .8 (C) / 98.2 (F) Weight: 289 lbs 08/03/2013 Blood Pressure 1: 144/80 Code: 8480-6 Heart Rate 1: 86 bpm Respiratory Rate: 20 bpm Temperature: 36.6 (C) / 97.8 (F) Weight: 296 lbs 04/06/2013 Blood Pressure 1: 142/90 Code: 8480-6 BMI: 40.3 Code: 99707-1 Heart Rate 1: 88 bpm Height: 6' Respiratory Rate: 20 bpm Temperature: 36 .6 (C) / 97.8 (F) Weight: 297 lbs 12/01/2012 Blood Pressure 1: 124/78 Code: 8480-6 BMI: 38.7 Code: 29619-5 Heart Rate 1: 76 bpm Height: 6' Respiratory Rate: 20 bpm Temperature: 37 .2 (C) / 98.9 (F) Weight: 285 lbs 08/04/2012 Blood Pressure 1: 128/80 Code: 8480-6 BMI: 38.2 Code: 48841-1 Heart Rate 1: 76 bpm Height: 6' Respiratory Rate: 20 bpm Temperature: 37 .0 (C) / 98.6 (F) Weight: 282 lbs 05/29/2012 Blood Pressure 1: 138/78 Code: 8480-6 BMI: 36.6 Code: 35436-6 Heart Rate 1: 66 bpm Height: 6' Temperature: 36.7 (C) / 98.1 (F) Weight: 270 lbs 05/25/2012 Blood Pressure 1: 128/72 Code: 8480-6 BMI: 39.9 Code: 02235-7 Heart Rate 1: 74 bpm Height: 6' Temperature: 36.1 (C) / 97.0 (F) Weight: 294 lbs 04/07/2012 Blood Pressure 1: 124/76 Code: 8480-6 BMI: 39.9 Code: 20923-3 Heart Rate 1: 72 bpm Height: 6' Respiratory Rate: 20 bpm Temperature: 36 .9 (C) / 98.5 (F) Weight: 294 lbs 12/16/2011 Blood Pressure 1: 128/80 Code: 8480-6 BMI: 40.8 Code: 41366-8 Heart Rate 1: 74 bpm Height: 6' Temperature: 36.6 (C) / 97.8 (F) Weight: 301 lbs 12/03/2011 Blood Pressure 1: 132/76 Code: 8480-6 BMI: 40.8 Code: 40583-5 Heart Rate 1: 68 bpm Height: 6' Respiratory Rate: 20 bpm Temperature: 36 .8 (C) / 98.2 (F) Weight: 301 lbs 08/29/2011 Blood Pressure 1: 140/68 Code: 8480-6 BMI: 40.8 Code: 69644-3 Heart Rate 1: 80 bpm Height: 6' Respiratory Rate: 20 bpm Temperature: 36 .4 (C) / 97.6 (F) Weight: 301 lbs 05/30/2011 Blood Pressure 1: 134/82 Code: 8480-6 BMI: 41.5 Code: 72503-7 Heart Rate 1: 76 bpm Height: 6' [...] 1: 126/72 Code: 8480-6 BMI: 41.2 Code: 61610-7 Heart Rate 1: 76 bpm Height: 6' [...] 1: 152/90 Code: 8480-6 BMI: 37.7 Code: 07860-8 Heart Rate 1: 92 bpm Height: 6'1" [...] dm Encounters Encounter Performer Location Codes Date ([id number]) OFFICE/OUTPATIENT VISIT EST Diagnosis: Chronic obstructive pulmonary disease with (acute) exacerbation[ICD10: J44.1] Neela HYMAN [employer] CPT- 4: 57124 08/10/2019 ([id number]) OFFICE/OUTPATIENT VISIT EST Diagnosis: Sore on toe[ICD10: L98.9] Neela VASQUEZ [employer] CPT-4: 36756 07/06/2019 ([id number]) OFFICE/OUTPATIENT VISIT EST Diagnosis: Advanced chronic obstructive pulmonary disease[ICD10: J44.9] 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 CPT-4: 32744 03/29/2019 ([id number]) NURSE/OUTPATIENT VISIT EST Diagnosis: PNEUMOCOCCAL VACCINE[ICD10: Z23] Neela HYMAN DO [facility] CPT-4: 72784 03/04/2019 ([id number]) OFFICE/OUTPATIENT VISIT EST Diagnosis: Chronic obstructive pulmonary disease with (acute) exacerbation[ICD10: J44.1] Diagnosis: Other nonspecific abnormal finding of lung field[ICD10: R91.8] Neela HYMAN DO 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 CPT-4: 16199 12/09/2018 ([id number]) OFFICE/OUTPATIENT VISIT EST Diagnosis: COUGH[ICD10: R05] Diagnosis: Chronic obstructive pulmonary disease, unspecified[ICD10: J44.9] Diagnosis: Other disorders of lung[ICD10: J98.4] Diagnosis: Other nonspecific abnormal finding of lung field[ICD10: R91.8] Neela HYMAN DO [facility] CPT-4: 48035 11/24/2018 ([id number]) OFFICE/OUTPATIENT VISIT EST Diagnosis: Pneumonia, unspecified organism[ICD10: J18.9] Amita Henderson NEELA HYMAN DO [facility] CPT-4: 43647 09/16/2018 ([id number]) OFFICE/OUTPATIENT VISIT EST Diagnosis: Pneumonia, unspecified organism[ICD10: J18.9] Neela HYMAN DO [facility] CPT-4: 97452 09/03/2018 ([id number]) OFFICE/OUTPATIENT VISIT EST Diagnosis: Personal history of pneumonia (recurrent)[ICD10: Z87.01] Diagnosis: Cough[ICD10: R05] Diagnosis: Essential (primary) hypertension[ICD10: I10] Diagnosis: Type 2 diabetes mellitus with hyperglycemia[ICD10: E11.65] Amitacalvin Henderson NEELA Octavio ZHANG [facility] CPT-4: 87534 08/27/2018 OFFICE/OUTPATIENT VISIT EST Diagnosis: Pneumonia, unspecified organism[ICD10: J18.9] Diagnosis: Chronic obstructive pulmonary disease with (acute) exacerbation[ICD10: J44.1] Diagnosis: Other specified symptoms and signs involving the circulatory and respiratory systems[ICD10: R09.89] Diagnosis: Essential (primary) hypertension[ICD10: I10] Amita Santiagolincoln MURILLO JulissaMendez VICENTE [facility] CPT-4: 98890 08/13/2018 OFFICE/OUTPATIENT VISIT EST Diagnosis: Pneumonia, unspecified organism[ICD10: J18.9] Diagnosis: Other specified symptoms and signs involving the circulatory and respiratory systems[ICD10: R09.89] Amita Santiagolincoln [place] JulissaMendez [employer] [facility] CPT-4: 28107 08/11/2018 ([id number]) OFFICE/OUTPATIENT VISIT EST Diagnosis: Dyspnea, unspecified[ICD10: R06.00] Diagnosis: Chronic obstructive pulmonary disease with (acute) exacerbation[ICD10: J44.1] Diagnosis: Pneumonia, unspecified organism[ICD10: J18.9] Amita Santiagolincoln [place]UR[place]O Julissa [employer] [facility] CPT-4: 87910 07/16/2018 ([id number]) OFFICE/OUTPATIENT VISIT EST Diagnosis: Acute bronchitis due to other specified organisms[ICD10: J20.8] Diagnosis: Cough[ICD10: R05] Amita Santiagodebbie [place]O Chay[employer]uni [employer] [facility] T-4: 44998 07/13/2018 ([id number]) OFFICE/OUTPATIENT VISIT EST Diagnosis: Essential (primary) hypertension[ICD10: I10] Diagnosis: Chronic obstructive pulmonary disease, unspecified[ICD10: J44.9] Diagnosis: Type 2 diabetes mellitus with hyperglycemia[ICD10: E11.65] Diagnosis: Mixed hyperlipidemia[ICD10: E78.2] Neela STERLING Ch[employer]uni [employer] [facility] CPT-4: 55467 06/03/2018 ([id number]) OFFICE/OUTPATIENT VISIT EST Diagnosis: Chronic obstructive pulmonary disease, unspecified[ICD10: J44.9] Gely MURILLO [employer] [facility] CPT-4: 25967 05/04/2018 ([id number]) OFFICE/OUTPATIENT VISIT EST Diagnosis: Essential (primary) hypertension[ICD10: I10] Diagnosis: Localized edema[ICD10: R60.0] Neela HYMAN DO [facility] CPT-4: 26155 03/03/2018 ([id number]) OFFICE/OUTPATIENT VISIT EST Diagnosis: Localized edema[ICD10: R60.0] Neela HYMAN DO [facility] CPT-4: 18225 02/17/2018 ([id number]) OFFICE/OUTPATIENT VISIT EST Diagnosis: FLU VACCINE[ICD10: Z23] Diagnosis: PNEUMOCOCCAL VACCINE[ICD10: Z23] Diagnosis: Type 2 diabetes mellitus without complications[ICD10: E11.9] Diagnosis: Mixed hyperlipidemia[ICD10: E78.2] Diagnosis: Essential (primary) hypertension[ICD10: I10] Diagnosis: Localized edema[ICD10: R60.0] Diagnosis: Chronic obstructive pulmonary disease, unspecified[ICD10: J44.9] Neela HYMAN [facility] CPT-4: 20506 02/10/2018 ([id number]) OFFICE/OUTPATIENT VISIT EST Diagnosis: Type 2 diabetes mellitus with hyperglycemia[ICD10: E11.65] Diagnosis: Mixed hyperlipidemia[ICD10: E78.2] Diagnosis: Essential (primary) hypertension[ICD10: I10] Diagnosis: Chronic obstructive pulmonary disease, unspecified[ICD10: J44.9] Diagnosis: Cutaneous abscess of back [any part, except buttock][ICD10: L02.212] Neela HYMAN [facility] CPT-4: 22631 11/05/2017 ([id number]) OFFICE/OUTPATIENT VISIT EST Diagnosis: Allergic urticaria[ICD10: L50.0] Gely HYMAN DO [facility] CPT-4: 93585 09/09/2017 ([id number]) OFFICE/OUTPATIENT VISIT EST Diagnosis: Generalized enlarged lymph nodes[ICD10: R59.1] Diagnosis: Acute gastritis without bleeding[ICD10: K29.00] Gely HYMAN [facility] CPT-4: 09865 08/07/2017 ([id number]) OFFICE/OUTPATIENT VISIT EST Diagnosis: Type 2 diabetes mellitus without complications[ICD10: E11.9] Diagnosis: Mixed hyperlipidemia[ICD10: E78.2] Diagnosis: Essential (primary) hypertension[ICD10: I10] Neela HYMAN DO [facility] CPT-4: 15675 08/04/2017 ([id number]) OFFICE/OUTPATIENT VISIT EST Diagnosis: Zoster without complications[ICD10: B02.9] Diagnosis: Acute sialoadenitis[ICD10: K11.21] Gely HYMAN DO [facility] CPT-4: 95580 06/04/2017 OFFICE/OUTPATIENT VISIT EST Diagnosis: Zoster without complications[ICD10: B02.9] Diagnosis: Acute sialoadenitis[ICD10: K11.21] Gely HYMAN [facility] CPT-4: 26912 06/02/2017 ([id number]) OFFICE/OUTPATIENT VISIT EST Diagnosis: Type 2 diabetes mellitus without complications[ICD10: E11.9] Diagnosis: Mixed hyperlipidemia[ICD10: E78.2] Diagnosis: Essential (primary) hypertension[ICD10: I10] Diagnosis: Chronic obstructive pulmonary disease, unspecified[ICD10: J44.9] Neela YHMAN [facility] CPT-4: 88658 05/05/2017 OFFICE/OUTPATIENT VISIT EST Diagnosis: Chronic obstructive pulmonary disease with acute lower respiratory infection[ICD10: J44.0] Diagnosis: Impacted cerumen, bilateral[ICD10: H61.23] Gely HYMAN [facility] CPT-4: 44658 04/10/2017 ([id number]) OFFICE/OUTPATIENT VISIT EST Diagnosis: FLU VACCINE[ICD10: Z23] Neela BUI [facility] CPT-4: 84881 03/28/2017 ([id number]) OFFICE/OUTPATIENT VISIT EST Diagnosis: Type 2 diabetes mellitus without complications[ICD10: E11.9] Diagnosis: Mixed hyperlipidemia[ICD10: E78.2] Diagnosis: Essential (primary) hypertension[ICD10: I10] Diagnosis: Chronic obstructive pulmonary disease, unspecified[ICD10: J44.9] Neela HYMAN DO [facility] CPT-4: 59094 02/03/2017 ([id number]) OFFICE/OUTPATIENT VISIT EST Diagnosis: Type 2 diabetes mellitus with hyperglycemia[ICD10: E11.65] Diagnosis: Mixed hyperlipidemia[ICD10: E78.2] Diagnosis: Essential (primary) hypertension[ICD10: I10] Diagnosis: Chronic obstructive pulmonary disease, unspecified[ICD10: J44.9] Neela HYMAN DO [facility] CPT-4: 30072 10/30/2016 ([id number]) NO CHARGE Diagnosis: Acute bronchitis, unspecified[ICD10: J20.9] Sammi HYMAN [facility] CPT-4: 49474 08/30/2016 ([id number]) OFFICE/OUTPATIENT VISIT EST Diagnosis: Acute bronchitis, unspecified[ICD10: J20.9] Diagnosis: Other seasonal allergic rhinitis[ICD10: J30.2] Sammi HYMAN [facility] CPT-4: 41303 08/27/2016 ([id number]) OFFICE/OUTPATIENT VISIT EST Diagnosis: Type 2 diabetes mellitus without complications[ICD10: E11.9] Diagnosis: Mixed hyperlipidemia[ICD10: E78.2] Diagnosis: Essential (primary) hypertension[ICD10: I10] Neela HYMAN [facility] CPT-4: 05860 07/02/2016 ([id number]) OFFICE/OUTPATIENT VISIT EST Diagnosis: Acute bronchitis, unspecified[ICD10: J20.9] Sammi HYMAN [facility] CPT-4: 67479 06/14/2016 ([id number]) OFFICE/OUTPATIENT VISIT EST Diagnosis: Acute bronchitis, unspecified[ICD10: J20.9] Sammi HYMAN [facility] CPT-4: 23360 06/13/2016 ([id number]) OFFICE/OUTPATIENT VISIT EST Diagnosis: Essential (primary) hypertension[ICD10: I10] Neela HYMAN [facility] CPT-4: 86377 05/14/2016 ([id number]) OFFICE/OUTPATIENT VISIT EST Diagnosis: Essential (primary) hypertension[ICD10: I10] Neela HYMAN [facility] CPT-4: 46718 04/29/2016 ([id number]) OFFICE/OUTPATIENT VISIT EST Diagnosis: Unspecified abdominal pain[ICD10: R10.9] Diagnosis: Left lower quadrant pain[ICD10: R10.32] Diagnosis: Left upper quadrant pain[ICD10: R10.12] Diagnosis: Essential (primary) hypertension[ICD10: I10] Neela HYMAN DO [facility] CPT-4: 10574 04/22/2016 ([id number]) OFFICE/OUTPATIENT VISIT EST Diagnosis: Type 2 diabetes mellitus without complications[ICD10: E11.9] Diagnosis: Mixed hyperlipidemia[ICD10: E78.2] Diagnosis: Essential (primary) hypertension[ICD10: I10] Neela HYMAN ar[facility] CPT-4: 53424 04/01/2016 ([id number]) OFFICE/OUTPATIENT VISIT EST Diagnosis: Type 2 diabetes mellitus with hyperglycemia[ICD10: E11.65] Diagnosis: Mixed hyperlipidemia[ICD10: E78.2] Diagnosis: Essential (primary) hypertension[ICD10: I10] Neela HYMAN arGEN-[facility] CPT-4: 24427 11/30/2015 ([id number]) OFFICE/OUTPATIENT VISIT EST Diagnosis: Type 2 diabetes mellitus with diabetic neuropathy, unspecified[ICD10: E11.40] Diagnosis: Essential (primary) hypertension[ICD10: I10] Diagnosis: Mixed hyperlipidemia[ICD10: E78.2] Neela HYMAN arGEN-[facility] CPT-4: 85818 08/29/2015 ([id number]) OFFICE/OUTPATIENT VISIT EST Diagnosis: COUGH[ICD10: R05] Diagnosis: Wheezing[ICD10: R06.2] Diagnosis: Type 2 diabetes mellitus with diabetic neuropathy, unspecified[ICD10: E11.40] Neela HYMAN [facility] CPT-4: 14958 08/14/2015 ([id number]) OFFICE/OUTPATIENT VISIT EST Diagnosis: Other seasonal allergic rhinitis[ICD10: J30.2] Diagnosis: Dyspnea, unspecified[ICD10: R06.00] Diagnosis: Wheezing[ICD10: R06.2] Sammi Najera NEELA JulissaMendez [facility] CPT-4: 35015 08/09/2015 ([id number]) OFFICE/OUTPATIENT VISIT EST Diagnosis: Essential (primary) hypertension[ICD10: I10] Diagnosis: Type 2 diabetes mellitus with hyperglycemia[ICD10: E11.65] Diagnosis: Mixed hyperlipidemia[ICD10: E78.2] Neela STERLING Octavio HYMAN arGEN-[facility] CPT-4: 88475 05/22/2015 ([id number]) OFFICE/OUTPATIENT VISIT EST Diagnosis: 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] Diagnosis: - I - HYPERTENSION[ICD9: 401.9] Diagnosis: - I - HYPERLIPIDEMIA NEC/NOS[ICD9: 272.4] Diagnosis: Left hand paresthesia[ICD9: 782.0] Neela STERLING JulissaMendez [facility] [facility] CPT-4: 96057 02/13/2015 ([id number]) OFFICE/OUTPATIENT VISIT EST Diagnosis: HYPERLIPIDEMIA NEC/NOS[ICD9: 272.4] Diagnosis: 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] Neela MURILLO JulissaMendez YENNI arGEN-X [facility] CPT-4: 23725 11/07/2014 ([id number]) OFFICE/OUTPATIENT VISIT EST Diagnosis: ALLERGIC RHINITIS[ICD9: 477.9] Diagnosis: WHEEZING[ICD9: 786.07] Neela Cunningham SERGEMANOLO Gerald arGEN-X [facility] CPT-4: 46456 10/04/2014 ([id number]) OFFICE/OUTPATIENT VISIT EST Diagnosis: BRONCHITIS, ACUTE[ICD9: 466.0] Diagnosis: WHEEZING[ICD9: 786.07] Loren Cunningham SERGEMANOLO R arGEN-X [facility] CPT-4: 27928 09/22/2014 ([id number]) OFFICE/OUTPATIENT VISIT EST Diagnosis: DYSPNEA[ICD9: 786.09] Diagnosis: WHEEZING[ICD9: 786.07] Diagnosis: Arrhythmia[ICD9: 427.9] Loren Cunningham SERGEUSHA ER arGEN-X [facility] CPT-4: 58733 09/21/2014 ([id number]) OFFICE/OUTPATIENT VISIT EST Diagnosis: DM W/O COMPLICATION TYPE II, 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] Diagnosis: - I - HYPERLIPIDEMIA NEC/NOS[ICD9: 272.4] Diagnosis: - I - HYPERTENSION[ICD9: 401.9] Neela Sergeushahao ANNNEELA [facility] CPT-4: 14413 06/28/2014 OFFICE/OUTPATIENT VISIT EST Diagnosis: SINUSITIS, ACUTE[ICD9: 461.9] Diagnosis: OTITIS MEDIA NOS[ICD9: 382.9] Sarah OchoaDanie MURILLO [facility]issaMendez [facility] CPT-4: 04062 06/10/2014 ([id number]) OFFICE/OUTPATIENT VISIT EST Diagnosis: 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] Diagnosis: - I - HYPERLIPIDEMIA NEC/NOS[ICD9: 272.4] Diagnosis: - I - HYPERTENSION[ICD9: 401.9] Neela Sergechristina MURILLO [facility]endez [facility] CPT-4: 36950 03/29/2014 ([id number]) OFFICE/OUTPATIENT VISIT EST Diagnosis: 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] Diagnosis: - I - HYPERTENSION[ICD9: 401.9] Diagnosis: - I - HYPERLIPIDEMIA NEC/NOS[ICD9: 272.4] Diagnosis: Hand lesion[ICD9: 709.9] Neela MURILLO JulissaMendez [facility] CPT-4: 58958 11/30/2013 ([id number]) OFFICE/OUTPATIENT VISIT EST Diagnosis: 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] Diagnosis: HYPERLIPIDEMIA NEC/NOS[ICD9: 272.4] Diagnosis: HYPERTENSION[ICD9: 401.9] Neela MURILLO JulissaMendez SERGE CHRISTINA [facility] CPT-4: 66852 08/03/2013 ([id number]) OFFICE/OUTPATIENT VISIT EST Diagnosis: DM W/O COMPLICATION TYPE II, 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] Diagnosis: HYPERTENSION[ICD9: 401.9] Diagnosis: HYPERLIPIDEMIA NEC/NOS[ICD9: 272.4] Neela GREGORIO [facility]endez [facility] CPT-[facility]: 72820 04/06/2013 ([id number]) OFFICE/OUTPATIENT VISIT EST Diagnosis: 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] Diagnosis: HYPERLIPIDEMIA NEC/NOS[ICD9: 272.4] Diagnosis: HYPERTENSION[ICD9: 401.9] Neela Yenni NEELA JulissaMendez SERGE VASQUEZ [facility] CPT-4: 62837 12/01/2012 ([id number]) OFFICE/OUTPATIENT VISIT EST Diagnosis: 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] Diagnosis: HYPERTENSION[ICD9: 401.9] Diagnosis: HYPERLIPIDEMIA NEC/NOS[ICD9: 272.4] Neela GREGORIO JulissaMendez YENNI [facility] CPT-4: 60211 08/04/2012 ([id number]) OFFICE/OUTPATIENT VISIT EST Diagnosis: URINARY FREQUENCY[ICD9: 788.41] Neela MURILLO JulissaMendez YENNI [facility] CPT-4: 70890 06/01/2012 OFFICE/OUTPATIENT VISIT EST Diagnosis: Agitation[ICD9: 307.9] Diagnosis: Frequent urination[ICD9: 788.41] Janet Cunningham SERGEOKHAO [facility] CPT-4: 14660 05/29/2012 OFFICE/OUTPATIENT VISIT EST Diagnosis: SINUSITIS, ACUTE[ICD9: 461.9] Diagnosis: OTALGIA[ICD9: 388.70] Neela MURILLO JulissaMendez YENNI [facility] CPT-4: 69691 05/25/2012 OFFICE/OUTPATIENT VISIT EST Diagnosis: DM W/O COMPLICATION TYPE II, 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] Diagnosis: HYPERTENSION[ICD9: 401.9] Diagnosis: HYPERLIPIDEMIA NEC/NOS[ICD9: 272.4] Neela GREGORIO JulissaMendez YENNI [facility] CPT-4: 56003 04/07/2012 OFFICE/OUTPATIENT VISIT EST Diagnosis: FINGER INJURY[ICD9: 959.5] Janet Cunningham [facility] CPT-4: 18341 12/16/2011 ([id number]) OFFICE/OUTPATIENT VISIT EST Diagnosis: DM 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 ORENDER DO [facility] CPT-4: 44800 12/03/2011 ([id number]) OFFICE/OUTPATIENT VISIT EST Diagnosis: 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] Diagnosis: HYPERLIPIDEMIA NEC/NOS[ICD9: 272.4] Diagnosis: HYPERTENSION[ICD9: 401.9] Neela Cunningham ORE NDER DO [facility] CPT-4: 84129 08/29/2011 OFFICE/OUTPATIENT VISIT EST Diagnosis: 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] Diagnosis: HYPERLIPIDEMIA NEC/NOS[ICD9: 272.4] Diagnosis: HYPERTENSION[ICD9: 401.9] Neela MURILLO SMendez ORE NDER DO [facility] CPT-4: 22559 05/30/2011 OFFICE/OUTPATIENT VISIT EST Diagnosis: SKIN SENSATION DISTURB[ICD9: 782.0] Neela Sergeushahao ANNJYOTIAdam GREGORIO S. ORENDER DO [facility] CPT-4: 25834 01/29/2011 OFFICE/OUTPATIENT VISIT EST Diagnosis: SKIN SENSATION DISTURB[ICD9: 782.0] Neela Sergeushahao ANNJYOTIAdam GREGORIO S. ORENDER DO [facility] CPT-4: 80733 01/14/2011 OFFICE/OUTPATIENT VISIT EST Neela MURILLO S. ORE NDER DO [facility] CPT- 4: 75680 01/01/2011 OFFICE/OUTPATIENT VISIT EST Neela Yenni ANNQUELINE S. ORE NDER DO [facility] CPT- 4: 02594 11/29/2010 ([id number]) OFFICE/OUTPATIENT VISIT EST Neela Sergechristina HORAN S. ORENDER DO [facility] CPT-4: 34679 08/28/2010 ([id number]) OFFICE/OUTPATIENT VISIT, EST Neela Sergechristina WILDE S. ORENDER DO [facility] CPT-4: 17786 06/05/2010 ([id number]) OFFICE/OUTPATIENT VISIT, EST Neela Sergechristina WILDE S. ORENDER DO [facility] CPT-4: 56798 02/05/2010 ([id number]) OFFICE/OUTPATIENT VISIT, EST Neela Sergechristina WILDE S. ORENDER DO [facility] CPT-4: 78882 10/09/2009 ([id number]) OFFICE/OUTPATIENT VISIT, EST [facility]ela [facility] CPT-4: 71766 08/22/2009 Plan of Care Planned Activity Notes [...] ICD-10 : J44.1 08/10/2019 Appointment: Neela Hymantel: [address] [place] [address] ACUTE ILLNESS 08/10/2019 Visit Diagnosis Plan: Sore on toe Discussion: Keep farhat an/dry Keflex Notify if worsens ICD-9 : 709.9 ICD-10 : L98.9 07/06/2019 Appointment: Neela Hyman WPtel: [address] [place] [address] ACUTE ILLNESS 07/06/2019 Patient Education: Abdoulaye Blue [id number] https://www.Pigit/Zolvers/resources/getResource/61/2kg197nl-12q7-1l07-72 Completed 07/06/2019 Visit Diagnosis Plan: Advanced chronic obstructive pul monary disease Discussion: Continue oxygen and pulmonary rehab Follow Up: 3 months ICD-9 : 496 ICD-10 : J44.9 05/10/2019 Visit Diagnosis Plan: Lymphoma involving lung Discussi on: Doing weekly lab and chemo ICD-9 : 202.82 ICD-10 : C85.99 05/10/2019 Appointment: Neela Hymantel: [address] [place], [place] [phone] FOLLOW UP 05/10/2019 Appointment: Neela Hymantel: [address] [place] [address] he called 04/14/19-- he was at physical [...] : E87.6 03/29/2019 Appointment: Neela Hyman WPtel: [address] [place], [place] [phone] Hospital Follow Up 03/29/2019 Appointment: Neela Hyman WPtel: [address] [place], [place] [phone] [place] INJECTION 03/04/2019 Visit Diagnosis Plan: Chronic obstructiv e pulmonary disease with (acute) exacerbation Discussion: Increase SVNS with duoneb to QID Prednisone taper ICD-9 : 491.21 ICD-10 : J44.1 01/05/2019 Visit Diagnosis Plan: Other nonspecific abnormal findi ng of lung field Discussion: Referral to pulmonology--will likely need bronchoscopy--path results discussed ICD-9 : 786.6 ICD-10 : R91.8 01/05/2019 Appointment: Neela Hyman WPtel: [address] [place], [place] [phone] [place] FOLLOW UP 01/05/2019 Patient Education: prednisone- OptimizeRX Coupon [id number] https://www.Zolvers.Signix/sampleUnbabel/resources/getResource/61/i5tt2319-109j-5v53-uv Completed 01/05/2019 Care Plan: Referral Order SNOMED-CT : 30 [id number] Pending 01/05/2019 Appointment: Neela Hyman WPtel: [facility] [facility] CANCELED 12/21/2018 Visit Diagnosis Plan: Tinea corporis Discussion: Diflu can--hold simvastatin and fenofibrate while taking ICD-9 : 110.5 ICD-10 : B35.4 12/09/2018 Visit Diagnosis Plan: Solitary pulmonary nodule Discus esmer: CT guided needle biopsy of RUL lung mass ICD-9 : 793.11 ICD-10 : R91.1 12/09/2018 Appointment: Neela Hyman WPtel: [address] [place], [place] [phone] US FOLLOW UP 12/09/2018 Appointment: Gely Harp [address] [place] [address] US NO SHOW 12/01/2018 Visit Diagnosis Plan: [...] : J44.9 11/24/2018 Appointment: Neela Hyman WPtel: [address] [place], [place] [phone] US FOLLOW UP 11/24/2018 Care Plan: PET IMAGE FULL BODY LOINC : 4 2711-2 Pending 11/24/2018 Appointment: Neela Hyman WPtel: [address] [place], [place] [phone] [place] Consult 09/21/2018 Visit Diagnosis Plan: Pneumonia, unspecified organism Discussion: Patient clinically improved. Recent CT scan from 09/07 showed unresolved right upper lobe pneumonia. Finished another 7 days of levaquin. Will repeat CBC early next week. Order sent with patient to get done at [facility]. FU CT recommended in 4 weeks. Patient states understanding. ICD-9 : 486 ICD-10 : J18.9 09/16/2018 Appointment: Amita Henderson [address] [place], [place] [phone] [place] FOLLOW UP 09/16/2018 Visit Diagnosis Plan: Pneumonia, unspecified organism Discussion: Clinically patient feels and looks much better but need CT scan of chest due to ongoing round pneumonia in association with his known lymphoma ICD-9 : 486 ICD-10 : J18.9 09/03/2018 Appointment: Neela Hyman WPtel: [phone] [id number] FOLLOW UP 09/03/2018 Care Plan: CT THORAX [...] ICD-10 : Z87.01 08/27/2018 Appointment: Amita Henderson [address] [place], [place] [phone] US FOLLOW UP 08/27/2018 Visit Diagnosis Plan: [...] I10 08/13/2018 [id number] [facility] FOLLOW UP 08/13/2018 Appointment: Amita Henderson [facility] CANCELED 08/13/2018 Patient Education: prednisone- OptimizeRX Coupon [phone] https://www.Pigit/Zolvers/resources/getResource/61/tf83hx4b-3h20-8sz5-2m Completed 08/13/2018 Visit Diagnosis Plan: Other specified [...] : J18.9 08/11/2018 App[facility]ment: [facility] ACUTE ILLNESS 08/11/2018 Care Plan: CHEST X-RAY 2VW FRONTAL&LATL LOINC : 40836-7 Pending 07/20/2018 Visit Diagnosis Plan: Dyspnea, unspecified Discussion: CXR- to be completed at the hospital. Will call with results and any adjustments in plan. Solumedrol 125 administered in clinic Prednisone 20 mg BID x 5 days- start tomorrow ICD-9 : 786.09 ICD-10 : R06.00 07/16/2018 Appointment: Amita Henderson [address] [place], [place] [phone] ACUTE ILLNESS 07/16/2018 Patient Education: prednisone- OptimizeRX Coupon [id number] https://www.Pigit/Zolvers/resources/getResource/61/75z1t6er-gw87-6xu8-q1 Completed 07/16/2018 Visit Diagnosis Plan: Acute bronchitis due to other sp ecified organisms Discussion: Kenalog 40 mg IM administered in clinic. Doxycycline called into [facility]. Take as directed. Continue nebulizer and Trelegy. Follow up if symptoms are not improving with treatment regimen. Patient states understanding of all instruction. ICD-9 : 466.0 ICD-10 : J20.8 07/13/2018 Appointment: Amita Henderson [address] [place], [place] [phone] ACUTE ILLNESS 07/13/2018 Patient Education: doxycycline hyclate- OptimizeRX Cou saritha [id number] https://www.Zolvers.Signix/Zolvers/resources/getResource/61/5u349g78-3t3e-2522-4b Completed 07/13/2018 Care Plan: [place] : [address]-6 Pending 07/13/2018 Care Plan: CBC Pending 07/13/2018 Care Plan: A1C HPLC LOINC : 48650-9 Pending 07/13/2018 Visit Diagnosis Plan: Mixed hyperlipidemia [...] : I10 06/03/2018 Appointment: Neela Hyman WPtel: [address] [place] [address] [place] FOLLOW UP 06/03/2018 Visit Diagnosis Plan: [...] ICD-10 : J44.9 05/04/2018 Appointment: Gely Harp [address] [place] [address] ACUTE ILLNESS 05/04/2018 Visit Diagnosis Plan: Localized edema Discussion: Cont inue lasix and potassium at every other day Recheck lab and fwup in 3mos Follow Up: 3 months ICD-9 : 782.3 ICD-10 : R60.0 03/03/2018 Appointment: Neela Hyman WPtel: [address] [place] [address] FOLLOW UP 03/03/2018 Patient Education: Patient Medication Summary Completed 03/03/2018 Visit Diagnosis Plan: Localized edema Discussion: Finch ge lasix and potassium to every other day Check Chem 7 in 2 weeks and fwup ICD-9 : 782.3 ICD-10 : R60.0 02/17/2018 Appointment: Neela Hyman WPtel: [address] [place] [address] FOLLOW UP 02/17/2018 Patient Education: Patient Medication [...] : R60.0 02/10/2018 Appointment: Neela Hyman WPtel: [facility] FOLLOW UP 02/10/2018 Patient Education: [...] L02.212 11/05/2017 Appointment: Neela Hyman WPtel: [phone] [facility] FOLLOW UP 11/05/2017 Patient Education: Patient Medication Summary Completed 11/05/2017 Patient Education: Patient Medication Summary Completed 11/03/2017 Care Plan: [place] : [address]-1 Pending 11/03/2017 Care Plan: LIPID PANEL LOINC : 53959-0 Pending 11/03/2017 Care Plan: CBC Pending 11/03/2017 Care Plan: A1C HPLC [facility] : 64099-9 Pending 11/03/2017 Visit Diagnosis Plan: Allergic urticaria [...] ICD-10 : L50.0 09/09/2017 Appointment: Gely Harp [address] [place], [place] [phone] ACUTE ILLNESS 09/09/2017 Patient Education: Patient Medication [...] ICD-10 : R59.1 08/07/2017 Appointment: Gely Harp [address] [place], [place] [phone] Hospital Follow Up 08/07/2017 Patient Education: Patient Medication Summary Completed 08/07/2017 Visit Diagnosis Plan: Type 2 diabetes mellitus without complications Discussion: Accuchecks daily Lab discussed Continue current meds ICD-9 : 250.00 ICD-10 : E11.9 08/04/2017 Visit Diagnosis Plan: Essential (primary) hypertension Discussion: Increase Cardizem CD to 360mg daily ICD-9 : 401.9 ICD-10 : I10 08/04/2017 Appointment: Neela Hyman WPtel: [phone] [id number] FOLLOW UP 08/04/2017 Patient Education: Patient Medication Summary Completed 08/04/2017 Patient Education: Patient Medication Summary Completed 07/31/2017 Care Plan: [place] : [address]-4 Pending 07/31/2017 Care Plan: ASSAY THYROID STIM HORMONE Pen ding 07/31/2017 Care Plan: LIPID PANEL LOINC : 54720-4 Pending 07/31/2017 Care Plan: CBC Pending 07/31/2017 Care Plan: A1C HPLC LOINC : 97274-3 Pending 07/31/2017 Patient Education: Patient Medication Summary Completed 06/19/2017 Patient Education: Patient Medication Summary Completed 06/09/2017 Care Plan: CT SOFT TISSUE [place] : [address]-7 Pending 06/09/2017 Visit Diagnosis Plan: Acute sialoadenitis [...] : B02.9 06/04/2017 Appointment: Gely Harp [address] [facility] ACUTE ILLNESS 06/04/2017 Patient Education: Patient Medication [...] ICD-10 : B02.9 06/02/2017 Appointment: Gely Harp [address] [place], [place] [phone] ACUTE ILLNESS 06/02/2017 Patient Education: Patient Medication [...] E11.9 05/05/2017 Appointment: Neela Hyman WPtel: [phone] [id number] FOLLOW UP 05/05/2017 Patient Education: Patient Medication Summary Completed 05/05/2017 Patient Education: Patient Medication Summary Completed 05/01/2017 Care Plan: A1C HPLC [facility] : 55270-4 Pending 05/01/2017 Visit Diagnosis Plan: Chronic obstructiv [...] : H61.23 04/10/2017 Appointment: Gely Harp [address] [place], [place] [address] ACUTE ILLNESS 04/10/2017 Patient Education: Patient Medication Summary Completed 04/10/2017 Appointment: Neela Hyman WPtel: [phone] [id number] INJECTION 03/28/2017 Patient [...] J44.9 02/03/2017 Appointment: Neela Hyman WPtel: [phone] [facility] [facility] FOLLOW UP 02/03/2017 Patient Education: Patient Medication Summary Completed 02/03/2017 Patient Education: Patient Medication Summary Completed 01/30/2017 Care Plan: COMPREH[place] : 05866-9 Pending 01/30/2017 Care Plan: LIPID PANEL LOINC : 31356-5 Pending 01/30/2017 Care Plan: CBC Pending 01/30/2017 Care Plan: A1C HPLC LOINC : 08526-2 Pending 01/30/2017 Care Plan: ASSAY OF PSA [...] : E11.65 10/30/2016 Appointment: Neela Hyman WPtel: [facility]9 [id number] US 10/29 lm ~sl 10/30 confirmed~sl FOLLOW [...] [facility] 4/6 rang and rang rang 08/30 rang [...] ICD-10 : J20.9 08/27/2016 Appointment: Sammi Najera [address] [place], [place] [address] FOLLOW UP 08/27/2016 Patient Education: Patient Medication Summary Completed 08/27/2016 Care Plan: Referral Order SNOMED-CT : 30 [id number] Pending 08/27/2016 Visit Diagnosis Plan: Type 2 [...] : I10 07/02/2016 Appointment: Neela Hyman WPtel: [address] [place], [place] [address] 07/01 rang and rang`sl FOLLOW UP 7 Patient Education: Patient Medication Summary Completed 07/02/2016 Patient Education: Patient Medication Summary Completed 06/27/2016 Care Plan: LIPID PANEL LOINC : 36854-9 Pending 06/27/2016 Care Plan: [place] : [address]-4 Pending 06/27/2016 Care Plan: A1C HPLC LOINC : 74991-2 Pending 06/27/2016 Visit Diagnosis Plan: Acute bronchitis, [...] ICD-10 : J20.9 06/14/2016 Appointment: Sammi Najera [address] [place] [address] FOLLOW UP 06/14/2016 Patient Education: Patient Medication [...] ICD-10 : J20.9 06/13/2016 Appointment: Sammi Najera [address] [place] [address] ACUTE ILLNESS 06/13/2016 Patient Education: Patient Medication Summary Completed 06/13/2016 Care Plan: CHEST X-RAY 2VW FRONTAL&LATL LOINC : 17495-6 Pending 06/13/2016 Visit Plan: Increase metoprolol to 100mg po BID BP readings and BP check in 1month 05/14/2016 Appointment: Neela Hyman WPtel: [address] [place], [place] [address] 05/13 rang and rang`sl FOLLOW UP 6 Patient Education: Patient Medication Summary Completed 05/14/2016 Visit Plan: Increase metoprolol to 50mg BID BP check in 1 week f/u BP appt 2 weeks consider musculoskeletal if pain returns 04/29/2016 Appointment: Neela Hyman WPtel: [address] [place], [place] [phone] 04/25 confimred~sl FOLLOW UP 04/29/2016 Patient Education: Patient Medication Summary Completed 04/29/2016 Visit Plan: Stat CT scan of abdomen/pelv is to look for stone Hydrate and use tramadol prn Increase metoprolol to 25mg po BID Will see urology pending CT scan results 04/22/2016 Appointment: Neela Hyman WPtel: [id number] 04/17 confirmed-sp ACUTE ILLNESS 04/22/2016 Patient [...] flu shot 04/01/2016 Appointment: Neela Hyman WPtel: [address] [place], [place] [phone] [place] FOLLOW UP 04/01/2016 Patient Education: Patient Medication Summary Completed 04/01/2016 Patient Education: [facility] - Saving AutoInj - 18-64 - Dynamic Heber l ID Completed 04/01/2016 Patient Education: Patient Medication Summary Completed 03/28/2016 Care Plan: A1C HPLC LOINC : 10946-4 Pending 03/28/2016 Care Plan: [place] : 225[address]-6 Pending 03/28/2016 Visit Plan: Lab discussed Continue curre nt meds Accuchecks daily 11/30/2015 Appointment: Neela Hyman WPtel: [id number] 11/28 confirmed~sl FOLLOW UP 11/30/2015 Patient Education: Patient Medication Summary Completed 11/30/2015 Appointment: Neela Hyman WPtel: [facility]5 [facility] US RESCHEDULED 11/28/2015 Patient Education: Patient Medication Summary Completed 11/23/2015 Care Plan: COMPREH[place] : 15788-5 Pending 11/23/2015 Care Plan: LIPID PANEL LOINC : 31967-5 Pending 11/23/2015 Care Plan: CBC Pending 11/23/2015 Care Plan: A1C HPLC LOINC : 00037-3 Pending 11/23/2015 Visit Plan: Lab discussed Accuchecks richard ly Continue current meds Cymbalta helping with feet and mood 08/29/2015 Appointment: Neela Hyman WPtel: [address] [place], [place] [phone] US FOLLOW UP 08/29/2015 Patient Education: Patient Medication Summary Completed 08/29/2015 Visit Plan: Check CXR Stop all steroids and steroid inhalers Use SVN with but change to duoneb Add singulair for allergy etiology Change fluoxetine to cymbalta 60mg daily Viagra samples given to try prn--warned of no nitrates 08/14/2015 Appointment: Neela Hyman WPtel: [address] [place], [place] [phone] lm to reschedule ~sl 07/27 lm ~sl 08/09 busy 08/10 conf irmed-sp Annual Well Visit 08/14/2015 Patient Education: Patient Medication Summary Completed 08/14/2015 Care Plan: CHEST X-RAY 2VW FRONTAL&LATL LOINC : 06176-7 Ordered 08/14/2015 Visit Plan: Decadron 8mg given [...] as expected 08/09/2015 Appointment: Sammi Najera [address] [facility] [address] ER Follow UP 08/09/2015 Patient Education: Patient Medication Summary Completed 08/09/2015 Patient Education: [facility] - Saving AutoInj - 18-64 - Dynamic Hebre l ID Completed 08/09/2015 Patient Education: Symbicort [...] with it 05/22/2015 Appointment: Neela Hyman WPtel: [address] [place], [place] [phone] 05/17 confirmed~sl FOLLOW UP 05/22/2015 Patient Education: Patient Medication Summary Completed 05/22/2015 Patient Education: Patient Medication Summary Completed 05/15/2015 Visit Plan: Obtain EMGs done at [place] from when fractured left arm Lab discussed Accuchecks daily 02/13/2015 Appointment: Neela Hyman WPtel: [address] [place], [place] [address] 02/10 confrimed FOLLOW UP 02/13/2015 Patient Education: Patient Medication Summary Completed 02/13/2015 Patient Education: Patient Medication Summary Completed 02/09/2015 Visit Plan: discussed lab add fenofibrat e 134mg po daily recheck fasting lab in 3 months, CBC, CMP, Lipids, hgb AIC 11/07/2014 Appointment: Neela Hyman WPtel: [address] [place], [place] [address] 11/04 appt confirmed cn FOLLOW UP 015 Patient Education: Patient Medication Summary Completed 11/07/2014 Patient Education: Patient Medication Summary Completed 11/03/2014 Visit Plan: Continue loratadine 10mg richard ly Notify if symptoms return 10/04/2014 Appointment: Neela Hyman WPtel: [facility]1 [facility] [facility] confirmed on 10/03 at 2:42pm FOLLOW UP 09/23 Patient Education: Patient Medication Summary Completed 10/04/2014 Appointment: Neela Hyman WPtel: [address] [place] [address] ACUTE ILLNESS 09/28/2014 Appointment: Loren Garza WPtel: [address] [place], [place] [phone] FOLLOW UP 09/22/2014 Patient Education: Patient Medication Summary Completed 09/22/2014 Appointment: Loren Garza WPtel: [address] [place], [place] [phone] ACUTE ILLNESS 09/21/2014 Patient Education: Patient Medication Summary Completed 09/21/2014 Patient Education: [facility] - Saving AutoInj - 18+ - Dynamic Portal ID Completed 09/21/2014 Visit Plan: Lab discussed Continue daily accuchecks Continue current meds 06/28/2014 Appointment: Neela Hyman WPtel: [address] [place] [address] FOLLOW UP 06/28/2014 Patient Education: Patient Medication Summary Completed 06/28/2014 Patient Education: Patient Medication Summary Completed 06/23/2014 Appointment: Sarah Sunshine WPtel: [address] [place] [address] ACUTE ILLNESS 06/10/2014 Patient Education: Patient Medication Summary Completed 06/10/2014 Patient Education: [facility] - Saving AutoInj - 18+ - Dynamic Portal ID Completed 06/10/2014 Visit Plan: Lab discussed Continue daily accuchecks Continue current meds 03/29/2014 Appointment: Neela Hyman WPtel: [address] [place] [address] [place] FOLLOW UP 03/29/2014 Patient Education: Patient Medication Summary Completed 03/29/2014 Patient Education: Patient Medication Summary Completed 03/23/2014 Visit Plan: Lab discussed Continue curre nt meds and accuchecks See surgery for removal of hand lesion 11/30/2013 Appointment: Neela Hyman WPtel: [address] [place] [address] 11/29 no answer FOLLOW UP 11/30/2013 Patient Education: Patient Medication Summary Completed 11/30/2013 Visit Plan: Lab discussed Continue curre nt meds 08/03/2013 Appointment: Neela Hyman WPtel: [address] [place] [address] FOLLOW UP 08/03/2013 Patient Education: Patient Medication Summary Completed 08/03/2013 Visit Plan: Lab Discussed Will continue current meds and pt will get back on diet/exercise Check lab in 4mos and fwup 04/06/2013 Appointment: Neela Hyman WPtel: [address] [place] [address] FOLLOW UP 04/06/2013 Patient Education: Patient Medication Summary Completed 04/06/2013 Visit Plan: Lab discussed Continue daily accuchecks 12/01/2012 Appointment: Neela Hyman WPtel: [address] [place] [address] 11/30 no answer FOLLOW UP 12/01/2012 Patient Education: Patient Medication Summary Completed 12/01/2012 Visit Plan: Continue current meds and da russell accuchecks Lab discussed 08/04/2012 Appointment: Neela Hyman WPtel: [address] [place], [place] [id number] FOLLOW UP 08/04/2012 Patient Education: Patient Medication Summary Completed 08/04/2012 Appointment: Neela Hyman WPtel: [address] [place], [place] [id number] UA 06/01/2012 Patient Education: Patient Medication Summary Completed 06/01/2012 Appointment: Janet Jean Baptiste WPtel: [address] [place] [address] [place] FOLLOW UP 05/29/2012 Patient Education: Patient Medication Summary Completed 05/29/2012 Visit Plan: pt states Dr. Hyman told h is to increase his Prozac dose while she was talking to her at [employer]. Discussed that pt. should not increase or decrease dosage without Dr's knowledge. Pt. will seek hearing test here in town at the hearing aid place on [address]. Discussed that ear pain is likely caused by sinus pressure. Pt. will notify if no improvement. 05/25/2012 Appointment: Janet Jean Baptiste WPtel: [address] [place] [address] ACUTE ILLNESS 05/25/2012 Patient Education: Patient Medication Summary Completed 05/25/2012 Visit Plan: Continue current meds Contin ue daily accuchecks but alternate times Increase fish oil to 3gm daily 04/07/2012 Appointment: Neela Hyman WPtel: [address] [place] [address] 04/06 FOLLOW UP 04/07/2012 Patient Education: Patient Medication Summary Completed 04/07/2012 Appointment: Janet Jean Baptiste WPtel: [address] [place] [address] ACUTE ILLNESS 12/16/2011 Patient Education: Patient Medication Summary Completed 12/16/2011 Visit Plan: Increase 12/03/2011 Appointment: Neela Hyman WPtel: [address] [place] [address] FOLLOW UP 12/03/2011 Patient Education: Patient Medication Summary Completed 12/03/2011 Visit Plan: Continue current meds Contin ue accuchecks 08/29/2011 Appointment: Neela Hyman WPtel: [address] [place], [place] [id number] FOLLOW UP 08/29/2011 Patient Education: Patient Medication Summary Completed 08/29/2011 Visit Plan: Continue current meds except restart zocor 05/30/2011 Appointment: Neela Hyman WPtel: [address] [place] [address] FOLLOW UP 05/30/2011 Patient Education: Patient Medication Summary Completed 05/30/2011 Visit Plan: Continue tennis elbow strap May go back to weight-lifing--light weigts every other day 01/29/2011 Appointment: Neela Hyman WPtel: [address] [place], [place] [id number] FOLLOW UP 01/29/2011 Patient Education: Patient Medication Summary Completed 01/29/2011 Visit Plan: Continue tennis elbow strap and anti-inflammatories 01/14/2011 Appointment: Neela Hyman WPtel: [address] [place] [address] FOLLOW UP 01/14/2011 Appointment: Janet Jean Baptiste WPtel: [address] [place], [place] [id number] NEW PATIENT 01/14/2011 Patient Education: Patient Medication Summary Completed 01/14/2011 Appointment: Neela Hyman WPtel: [address] [place] [address] FOLLOW UP 01/08/2011 Appointment: Neela Hyman WPtel: [address] [place], [place] [id number] FOLLOW UP 01/01/2011 Appointment: Neela Hyman WPtel: [address] [place] [address] UA 01/01/2011 Patient Education: Patient Medication Summary [...] given. 11/29/2010 Appointment: Janet Jean Baptiste WPtel: [address] [place], [place] [id number] ACUTE ILLNESS 11/29/2010 Patient Education: Patient Medication Summary Completed 11/29/2010 Visit Plan: Cont current meds Check CMP, Lipids, HbA1C 08/28/2010 Appointment: Neela Hymanl: [address] [place], [place] [phone] FOLLOW UP 08/28/2010 Patient Education: Patient Medication Summary Completed 08/28/2010 Visit Plan: Cont current meds and accuch ecks Add Zocor 40mg q HS Check Lipids and HbA1C in 3mos 06/05/2010 Appointment: Neela Hyman WPtel: [address] [place] [address] FOLLOW UP 06/05/2010 Patient Education: Patient Medication Summary Completed 06/05/2010 Visit Plan: Check Lipids and HbA1C 02/05/2010 Appointment: Neela Hyman WPtel: [address] [place] [address] FOLLOW UP 02/05/2010 Patient Education: Patient Medication Summary Completed 02/05/2010 Visit Plan: HbA1C in 3mos. Continue Accu checks BID alternating times. Check HbA1C, CMP, Lipids 10/09/2009 Appointment: Neela Hyman WPtel: [address] [place] [address] FOLLOW UP 10/09/2009 Patient Education: Patient Medication Summary Completed 10/09/2009 Visit Plan: Saline nasal flushes prn. Ty lenol/Motrin prn headache. Notify if persists/symptoms worsening. 08/22/2009 Appointment: Neela Hyman WPtel: [address] [place] [address] ACUTE ILLNESS 08/22/2009 Patient Education: Patient Medication Summary Completed 08/22/2009 Referral: Aubrey Rand [facility]el[facility] [phone] [id number] [place] Office will verfy his insurance then they will contact patient Completed Referral: Shahbaz Brennan WPtel: [address] [facility] [address] [id number] [place] Referral Completed Referral: Ion Levi [address] [facility] C&D [id number] [place] Referral Appointment Requested Referral: Ion Levi [address] [facility] C&D [id number] [place] Referral Appointment Requested Instructions Comment . [...] with it . Obtain EMGs done at [place] from when fractured left arm Lab discussed [...] while she was talking to her at [facility]. Discussed that pt. should not increase or decrease dosage without Dr's knowledge. Pt. will seek hearing test here in town at the hearing aid place on [address]. Discussed that ear pain is likely caused [...]
--- OUTSIDE RECORDS SUMMARY | 2019-12-09 09:11 | XMS REPORT | CCD ---
Author Author Michael Hyman D.O. 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 Name Role Phone Neela Hyman D.O., PP Unavailable CCM Unavailable Summary Purpose Interface Exchange Insurance Providers Payer name Policy type / Coverage type Covered green party ID Effective Begin Date Effective End Date ABS FOR Respirics Commercial Insurance [id number] Unknown Family History Family History data not found Social History Social History Element Codes Description Effective Dates Marital status Unknown 05/30/[address]: 0011325 Former smoker quit 25 years ago 01/01/2011 [...] chloride ER 20 mEq tablet,extended release RxNorm: 194213 1 Tablet(s) Oral two times a day 07/22/2019 10/19/2019 Active metformin 500 mg tablet RxNorm: 813876 2 Tablet(s) Oral two afshan es a day 07/13/2019 09/11/2019 Active Singulair 10 mg tablet RxNorm: 875080 TAKE ONE TABLET BY MOUTH EVERY EVENING 07/06/2019 01/02/2020 Active Reselected prescribe r from PEG MAHER to [facility] Keflex 500 mg capsule RxNorm: 841580 1 Capsule(s) Oral three ti mes a day 07/06/2019 07/13/2019 Inactive Singulair 10 mg tablet RxNorm: 461694 TAKE ONE TABLET BY MOUTH EVERY EVENING 06/22/2019 07/05/2019 Inactive Reselected prescribe r from PEG MAHER to [facility]ELA [facility]MAN Zocor 40 mg tablet RxNorm: 253985 TAKE ONE TABLET BY M OUTH EVERY NIGHT AT BEDTIME 06/21/2019 11/17/2019 Active MagOx 400 mg (241.3 mg magnesium) tablet RxNorm: 160191 1 Table t(s) Oral QD 06/21/2019 08/20/2019 Active diltiazem ER 360 mg capsule,24 hr,extended release RxNorm: 8 69407 TAKE ONE CAPSULE BY MOUTH AT BEDTIME -REPLACES 300MG 05/17/2019 11/12/2019 Active MagOx 400 mg (241.3 mg magnesium) tablet RxNorm: 414008 1 Table t(s) Oral QD 04/26/2019 06/20/2019 Inactive Lasix 40 mg tablet RxNorm: 125602 40 MG PO DAILY 04/12/2019 No Stop Da te Active Benicar 40 mg tablet RxNorm: 940306 1 Tablet(s) Oral QD 03/29/2019 Active potassium chloride ER 20 mEq tablet,extended release RxNorm: 539402 1 Tablet(s) Oral two times a day 03/29/2019 06/27/2019 Inactive potassium chloride ER 20 mEq tablet,extended release RxNorm: 865361 1 Tablet(s) Oral QD 03/29/2019 03/28/2019 Inactive Benicar 40 mg tablet RxNorm: 419627 1 Tablet(s) Oral QD 03/29/2019 Inactive MagOx 400 mg (241.3 mg magnesium) tablet RxNorm: 121841 1 Table t(s) Oral QD 03/29/2019 04/25/2019 Inactive metformin 500 mg tablet RxNorm: 186467 2 Tablet(s) Oral two afshan es a day 03/29/2019 07/12/2019 Inactive fenofibrate micronized 134 mg capsule RxNorm: 769231 TA KE ONE CAPSULE BY MOUTH EVERY DAY 03/05/2019 08/31/2019 Active duloxetine 60 mg capsule,delayed release RxNorm: 157464 1 Capsu le(s) PO QD 01/28/2019 07/26/2019 Inactive Trelegy Ellipta 100 mcg-62.5 mcg-25 mcg powder for inhalatio n RxNorm: 0894231 1 Puff(s) INH QD 01/06/2019 12/31/2019 Active 90 day supply prednisone 20 mg tablet RxNorm: 723543 1 Tablet(s) PO T ID for 3 days then 1 po BID for 3 days then 1 po daily for 3 days 01/05/2019 03/28/2019 Inacti ve metformin ER 1,000 mg tablet,extended release 24hr RxNorm: 1 173577 TAKE TWO TABLETS (1000MG) BY MOUTH TWO TIMES A DAY 12/22/2018 07/13/2019 Inacti ve Diflucan 100 mg tablet RxNorm: 969537 1 Tablet(s) PO QD 12/09/2018 Inactive prednisone 20 mg tablet RxNorm: 142378 1 Tablet(s) PO B ID for 4 days then 1 po daily for 4 days 11/24/2018 01/04/2019 Inactive albuterol sulfate 2.5 mg/3 mL (0.083 %) solution for n ebulization RxNorm: 621811 3 Milliliter(s) INH ONE VIAL VIA NEBULIZER EVERY 4 HOURS 07/21/2019 Inactive [AttnRPh: Saving apply/adjudicate RxGRP: SG20 RxBIN:[id number] RxPCN: ID#:[id number]] Trelegy Ellipta 100 mcg-62.5 mcg-25 mcg powder for inhalatio n RxNorm: 6812660 1 Puff(s) INH QD 10/27/2018 01/06/2019 Inactive 90 day supply metoprolol succinate ER 100 mg tablet,extended release 24 hr RxNorm: 907580 TAKE ONE TABLET BY MOUTH TWICE A DAY 10/13/2018 07/09/2019 Inactive diltiazem ER 360 mg capsule,24 hr,extended release RxNorm: 8 71034 TAKE ONE CAPSULE BY MOUTH AT BEDTIME -REPLACES 300MG 10/13/2018 04/10/2019 Inactive Trelegy Ellipta 100 mcg-62.5 mcg-25 mcg powder for inhalatio n RxNorm: 5981174 INHALE ONE PUFF ONCE DAILY 09/07/2018 10/27/2018 Inactive Levaquin 750 mg tablet RxNorm: 821090 1 Tablet(s) PO QD 09/07/2018 Inactive Levaquin 750 mg tablet RxNorm: 337557 1 Tablet(s) PO QD 09/07/2018 Inactive prednisone 20 mg tablet RxNorm: 197273 2 Tablet(s) PO QAM 08/13/2018 08/19/2018 Inactive Levaquin 500 mg tablet RxNorm: 876842 1 Tablet(s) PO QD 08/11/2018 Inactive fenofibrate micronized 134 mg capsule RxNorm: 162516 TA KE ONE CAPSULE BY MOUTH EVERY DAY 08/10/2018 02/05/2019 Inactive prednisone 20 mg tablet RxNorm: 109202 1 Tablet(s) PO BID 07/16/2018 07/20/2018 Inactive doxycycline hyclate 100 mg capsule RxNorm: 4616056 1 Capsule(s) PO BID 07/13/2018 07/22/2018 Inactive duloxetine 60 mg capsule,delayed release RxNorm: 716017 TAKE ONE CAPSULE BY MOUTH ONCE A DAY 07/08/2018 01/28/2019 Inactive Lasix 40 mg tablet RxNorm: 295918 1 TABLET(S) PO QAM 06/08/201809/05 Inactive potassium chloride ER 20 mEq tablet,extended release(p art/cryst) RxNorm: 4781053 1 TABLET(S) PO QD 06/08/2018 09/05/2018 Inactive metformin ER 1,000 mg tablet,extended release 24hr RxNorm: 1 607206 TAKE TWO TABLETS (1000MG) BY MOUTH TWO TIMES A DAY 06/01/2018 11/27/2018 Inacti ve Benicar HCT 40 mg-25 mg tablet RxNorm: 985756 TAKE ONE TABLET BY MOUTH ONCE DAILY 05/11/2018 03/28/2019 Inactive Zocor 40 mg tablet RxNorm: 519281 TAKE ONE TABLET BY M OUTH EVERY NIGHT AT BEDTIME 05/11/2018 06/20/2019 Inactive Trelegy Ellipta 100 mcg-62.5 mcg-25 mcg powder for inhalatio n RxNorm: 0604308 1 PUFF(S) INH QD 04/06/2018 07/04/2018 Inactive diltiazem ER 360 mg capsule,24 hr,extended release RxNorm: 8 86297 1 Capsule(s) PO QHS replaces 300mg dose 03/30/2018 09/25/2018 Inactive Trelegy Ellipta 100 mcg-62.5 mcg-25 mcg powder for inhalatio n RxNorm: 1434054 1 Puff(s) INH QD 02/24/2018 02/23/2018 Inactive Trelegy Ellipta 100 mcg-62.5 mcg-25 mcg powder for inhalatio n RxNorm: 9586157 1 Puff(s) INH QD 02/24/2018 02/23/2018 Inactive Trelegy Ellipta 100 mcg-62.5 mcg-25 mcg powder for inhalatio n RxNorm: 7803583 1 Puff(s) INH QD 02/24/2018 04/05/2018 Inactive Lasix 40 mg tablet RxNorm: 659054 1 Tablet(s) PO QAM 02/10/201803/11 Inactive potassium chloride ER 20 mEq tablet,extended release(p art/cryst) RxNorm: 5255394 1 Tablet(s) PO QD 02/10/2018 03/11/2018 Inactive fenofibrate micronized 134 mg capsule RxNorm: 542035 1 Capsule( s) PO QD 01/30/2018 07/28/2018 Inactive metoprolol succinate ER 100 mg tablet,extended release 24 hr RxNorm: 674965 TAKE ONE TABLET BY MOUTH TWICE A DAY 12/30/2017 09/25/2018 Inactive metformin ER 1,000 mg tablet,extended release 24hr RxNorm: 1 235430 1 Tablet(s) PO BID 11/17/2017 05/15/2018 Inactive [SAVINGS FOR NON -COVERED DRUGS -- BIN:258130, PCN: ASPROD1, Group: XXXXX, ID# [id number], Questions: . THIS IS NOT INSURANCE.] Benicar HCT 40 mg-25 mg tablet RxNorm: 345546 1 Tablet(s) PO QD 05/10/2018 Inactive [SAVINGS FOR NON-COVERED JESU GS -- BIN:603867, PCN: ASPROD1, Group: XXXXX, ID# [id number], Questions: . THIS IS NOT INSURANCE.] Bactroban 2 % topical cream RxNorm: 783446 Application TOP BID 10/2409/02/2018 Inactive clindamycin HCl 300 mg capsule RxNorm: 178631 2 Capsule(s) PO TID 0 11/05/2017 11/18/2017 Inactive duloxetine 60 mg capsule,delayed release RxNorm: 945428 Capsule(s) TAKE ONE CAPSULE BY MOUTH ONCE DAILY 09/24/2017 09/23/2017 Inactive triamcinolone acetonide 0.1 % topical ointment RxNorm: 8460038 1 TOP BID 09/09/2017 11/04/2017 Inactive Bactrim DS 800 mg-160 mg tablet RxNorm: 139244 1 Tablet(s) PO BID 0 08/07/2017 08/13/2017 Inactive metronidazole 500 mg tablet RxNorm: 894604 1 Tablet(s) PO BID 08/0708/13/2017 Inactive diltiazem ER 360 mg capsule,24 hr,extended release RxNorm: 8 89013 1 Capsule(s) PO QHS replaces 300mg dose 08/04/2017 01/30/2018 Inactive fenofibrate micronized 134 mg capsule RxNorm: 572224 1 Capsule( s) PO QD 07/21/2017 01/30/2018 Inactive Zocor 40 mg tablet RxNorm: 255080 1 Tablet(s) PO QHS 07/21/201705/10 Inactive GB duloxetine 60 mg capsule,delayed release RxNorm: 033000 Capsule(s) TAKE ONE CAPSULE BY MOUTH ONCE DAILY 06/24/2017 09/24/2017 Inactive Cleocin HCl 300 mg capsule RxNorm: 378231 2 Capsule(s) PO BID 06/0206/08/2017 Inactive acyclovir 800 mg tablet RxNorm: 091551 1 Tablet(s) PO 5x day 201706/08/2017 Inactive diltiazem ER 300 mg capsule,24 hr,extended release RxNorm: 8 66456 1 Capsule(s) PO QHS replaces 240mg dose 05/05/2017 08/03/2017 Inactive ipratropium-albuterol 0.5 mg-3 mg(2.5 mg base)/3 mL ne bulization soln RxNorm: 4743321 1 Unit Dose INH Q4H as needed 05/05/2017 01/04/2019 Inactive metformin ER 1,000 mg tablet,extended release 24hr RxNorm: 1 321455 1 Tablet(s) PO BID 04/28/2017 11/17/2017 Inactive [SAVINGS FOR NON -COVERED DRUGS -- BIN:137072, PCN: ASPROD1, Group: XXXXX, ID# [id number], Questions: . THIS IS NOT INSURANCE.] diltiazem ER (XR/XT) 240 mg capsule,extended release 2 4 hr, controlled RxNorm: 259191 TAKE ONE CAPSULE BY MOUTH EVERY DAY 04/15/2017 05/04/2017 Inact avani prednisone 20 mg tablet RxNorm: 243535 1 Tablet(s) PO QD 04/10/2017 1 06/14/2016 Inactive Breo Ellipta 200 mcg-25 mcg/dose powder for inhalation RxNor m: 1123238 1 Puff(s) INH QD 04/10/2017 02/09/2018 Inactive Breo Ellipta 200 mcg-25 mcg/dose powder for inhalation RxNor m: 6230238 1 Puff(s) INH QD 04/10/2017 04/09/2017 Inactive Levaquin 500 mg tablet RxNorm: 525645 1 Tablet(s) PO QD 04/10/2017 Inactive metoprolol succinate ER 100 mg tablet,extended release 24 hr RxNorm: 061034 TAKE ONE TABLET BY MOUTH TWICE A DAY 03/24/2017 12/18/2017 Inactive fenofibrate micronized 134 mg capsule RxNorm: 095442 1 Capsule( s) PO QD 01/16/2017 07/21/2017 Inactive Benicar HCT 40 mg-25 mg tablet RxNorm: 807426 1 Tablet(s) PO QD 11/17/2017 Inactive [SAVINGS FOR NON-COVERED JESU GS -- BIN:295110, PCN: ASPROD1, Group: XXXXX, ID# [id number], Questions: . THIS IS NOT INSURANCE.] metoprolol succinate ER 100 mg tablet,extended release 24 hr RxNorm: 756066 1 Tablet(s) PO BID 10/16/2016 03/23/2017 Inactive diltiazem ER (XR/XT) 240 mg capsule,extended release 2 4 hr, controlled RxNorm: 295483 1 Capsule(s) PO QD 10/16/2016 04/13/2017 Inactive [SAVINGS FOR NON- COVERED DRUGS -- BIN:183317, PCN: ASPROD1, Group: XXXXX, ID# [id number], Questions: . THIS IS NOT INSURANCE.] metformin ER 1,000 mg tablet,extended release 24hr RxNorm: 8 31993 1 Tablet(s) PO BID 10/16/2016 04/28/2017 Inactive [SAVINGS FOR NON -COVERED DRUGS -- BIN:213070, PCN: ASPROD1, Group: XXXXX, ID# [id number], Questions: . THIS IS NOT INSURANCE.] Zocor 40 mg tablet RxNorm: 309405 1 Tablet(s) PO QHS 10/16/201607/21 Inactive GB Singulair 10 mg tablet RxNorm: 825642 Tablet(s) 1 TABLET(S) PO QHS 08/27/2016 09/02/2018 Inactive prednisone 20 mg tablet RxNorm: 374238 1 Tablet(s) PO QD 08/27/2016 0 08/31/2016 Inactive ipratropium-albuterol 0.5 mg-3 mg(2.5 mg base)/3 mL ne bulization soln RxNorm: 7326688 1 Unit Dose INH Q4H as needed 08/27/2016 05/04/2017 Inactive metoprolol succinate ER 100 mg tablet,extended release 24 hr RxNorm: 394001 TAKE ONE TABLET BY MOUTH TWICE A DAY 08/05/2016 10/16/2016 Inactive duloxetine 60 mg capsule,delayed release RxNorm: 681420 TAKE ONE CAPSULE BY MOUTH ONCE DAILY 08/05/2016 06/24/2017 Inactive prednisone 20 mg tablet RxNorm: 196352 1 Tablet(s) PO QD 06/14/2016 0 06/18/2016 Inactive ipratropium-albuterol 0.5 mg-3 mg(2.5 mg base)/3 mL ne bulization soln RxNorm: 1384413 1 Unit Dose INH Q4H as needed 06/13/2016 08/26/2016 Inactive Levaquin 500 mg tablet RxNorm: 484577 1 Tablet(s) PO QD 06/13/2016 Inactive metoprolol succinate ER 100 mg tablet,extended release 24 hr RxNorm: 409179 1 Tablet(s) PO BID replaces 50mg dose 05/14/2016 07/12/2016 Inactive metoprolol succinate ER 50 mg tablet,extended release 24 hr RxNorm: 728985 1 Tablet(s) PO BID 04/29/2016 05/13/2016 Inactive prednisone 20 mg tablet RxNorm: 338969 1 Tablet(s) PO BID 04/22/2016 04/21/2016 Inactive prednisone 20 mg tablet RxNorm: 901309 1 Tablet(s) PO BID 04/22/2016 04/28/2016 Inactive Singulair 10 mg tablet RxNorm: 277212 Tablet(s) 1 TABLET(S) PO QHS 04/01/2016 08/26/2016 Inactive metoprolol succinate ER 25 mg tablet,extended release 24 hr RxNorm: 638227 1 Tablet(s) PO QHS for blood pressure 04/01/2016 05/13/2016 Inactive fenofibrate micronized 134 mg capsule RxNorm: 294095 TA KE ONE CAPSULE BY MOUTH DAILY 01/25/2016 01/16/2017 Inactive duloxetine 60 mg capsule,delayed release RxNorm: 669966 TAKE ONE CAPSULE BY MOUTH ONCE DAILY 01/25/2016 08/04/2016 Inactive Zocor 40 mg tablet RxNorm: 573227 TAKE ONE TABLET BY MOUTH AT B EDTIME 11/13/2015 10/16/2016 Inactive GB metformin ER 1,000 mg tablet,extended release 24hr RxNorm: 8 83995 1 Tablet(s) PO BID 10/26/2015 10/16/2016 Inactive [SAVINGS FOR NON -COVERED DRUGS -- BIN:535627, PCN: ASPROD1, Group: XXXXX, ID# [id number], Questions: . THIS IS NOT INSURANCE.] Benicar HCT 40 mg-25 mg tablet RxNorm: 592780 1 Tablet(s) PO QD 06/201511/11/2016 Inactive [SAVINGS FOR NON-COVERED JESU GS -- BIN:123677, PCN: ASPROD1, Group: XXXXX, ID# [id number], Questions: . THIS IS NOT INSURANCE.] diltiazem ER (XR/XT) 240 mg capsule,extended release,control led RxNorm: 926913 1 Capsule(s) PO QD 10/26/2015 10/15/2016 Inactive [SAVINGS FOR NO N-COVERED DRUGS -- BIN:187981, PCN: ASPROD1, Group: XXXXX, ID# [id number], Questions: . THIS IS NOT INSURANCE.] Singulair 10 mg tablet RxNorm: 705093 1 TABLET(S) PO QHS 09/18/2015 1 05/31/2015 Inactive Viagra 100 mg tablet RxNorm: 945135 1 Tablet(s) PO as needed 201511/23/2018 Inactive Singulair 10 mg tablet RxNorm: 029106 1 Tablet(s) PO QHS 08/16/2015 0 08/15/2015 Inactive Singulair 10 mg tablet RxNorm: 457083 1 Tablet(s) PO QHS 08/16/2015 0 09/14/2015 Inactive duloxetine 60 mg capsule,delayed release RxNorm: 737691 1 Capsule(s) PO QD replaces fluoxetine 08/14/2015 01/24/2016 Inactive ipratropium-albuterol 0.5 mg-3 mg(2.5 mg base)/3 mL ne bulization soln RxNorm: 8971593 1 Unit Dose INH Q4H as needed 08/14/2015 06/12/2016 Inactive prednisone 20 mg tablet RxNorm: 783284 Take 3 tabs PO o nce daily x 3 days, then 2 tabs PO once daily x 3 days and then 1 tab PO once daily x 3 days 08/09/2015 08/13/2015 Inactive Symbicort 160 mcg-4.5 mcg/actuation HFA aerosol inhaler RxNo rm: 5782496 2 Puff(s) INH BID 08/09/2015 08/13/2015 Inactive Zocor 40 mg tablet RxNorm: 163746 1 Tablet(s) PO QHS 05/23/201511/11 Inactive [AttnRPh: Saving apply/adjudicate RxGRP: SG20 RxBIN:[id number] RxPCN:HT ID#:[id number]] Benicar HCT 40 mg-25 mg tablet RxNorm: 096347 1 Tablet(s) PO QD 10/26/2015 Inactive [SAVINGS FOR NON-COVERED JESU GS -- BIN:397680, PCN: ASPROD1, Group: XXXXX, ID# [id number], Questions: . THIS IS NOT INSURANCE.] diltiazem ER (XR/XT) 240 mg capsule,extended release,control led RxNorm: 553904 1 Capsule(s) PO QD 04/24/2015 10/20/2015 Inactive [SAVINGS FOR NO N-COVERED DRUGS -- BIN:021245, PCN: ASPROD1, Group: XXXXX, ID# [id number], Questions: . THIS IS NOT INSURANCE.] fluoxetine 40 mg capsule RxNorm: 838531 1 Capsule(s) PO QD 04/24/20 15 08/13/2015 Inactive [SAVINGS FOR NON-COVERED JESU GS -- BIN:903268, PCN: ASPROD1, Group: XXXXX, ID# XXXXXXX, Questions: . THIS IS NOT INSURANCE.] Zocor 40 mg tablet RxNorm: 415715 TABLET(S) 1 TABLET(S) PO QHS 01/2505/23/2015 Inactive [AttnRPh: Saving apply/adjud icate RxGRP:SG20 RxBIN:[id number] RxPCN: ID#:[id number]] metformin ER 1,000 mg tablet,extended release 24hr RxNorm: 8 69810 1 TABLET(S) PO BID 01/29/2015 10/26/2015 Inactive [SAVINGS FOR NON -COVERED DRUGS -- BIN:527447, PCN: ASPROD1, Group: XXXXX, ID# XXXXXXX, Questions: . THIS IS NOT INSURANCE.] fenofibrate micronized 134 mg capsule RxNorm: 367881 1 CAPSULE( S) PO QD 01/23/2015 01/17/2016 Inactive fenofibrate micronized 134 mg capsule RxNorm: 768525 1 Capsule( s) PO QD 11/07/2014 01/22/2015 Inactive diltiazem ER (XR/XT) 240 mg capsule,extended release,control led RxNorm: 606864 1 Capsule(s) PO QD 10/24/2014 04/24/2015 Inactive [SAVINGS FOR NO N-COVERED DRUGS -- BIN:510772, PCN: ASPROD1, Group: XXXXX, ID# XXXXXXX, Questions: . THIS IS NOT INSURANCE.] Benicar HCT 40 mg-25 mg tablet RxNorm: 797578 1 Tablet(s) PO QD 05/201404/24/2015 Inactive [SAVINGS FOR NON-COVERED JESU GS -- BIN:596683, PCN: ASPROD1, Group: XXXXX, ID# XXXXXXX, Questions: . THIS IS NOT INSURANCE.] fluoxetine 40 mg capsule RxNorm: 624770 1 Capsule(s) PO QD 10/25/1904/24/2015 Inactive [SAVINGS FOR NON-COVERED JESU GS -- BIN:333936, PCN: ASPROD1, Group: XXXXX, ID# XXXXXXX, Questions: . THIS IS NOT INSURANCE.] azithromycin 500 mg tablet RxNorm: 552656 1 Tablet(s) PO QD 015 09/27/2014 Inactive [SAVINGS FOR NON-COVERED JESU GS -- BIN:679743, PCN: ASPROD1, Group: XXXXX, ID# XXXXXXX, Questions: . THIS IS NOT INSURANCE.] albuterol sulfate 2.5 mg/3 mL (0.083 %) solution for n ebulization RxNorm: 702852 3 Milliliter(s) INH ONE VIAL VIA NEBULIZER EVERY 4 HOURS 015 11/19/2014 Inactive [AttnRPh: Saving apply/adjudicate RxGRP: SG20 RxBIN:[id number] RxPCN: ID#:[id number]] Zocor 40 mg tablet RxNorm: 814867 TABLET(S) 1 TABLET(S ) PO QHS 1 TABLET(S) PO QHS 09/04/2014 02/21/2015 Inactive [AttnRPh: Saving apply/adjudicate RxGRP:SG20 RxBIN:[id number] RxPCN: ID#:[id number]] metformin ER 1,000 mg tablet,extended release 24hr RxNorm: 8 52944 1 Tablet(s) PO BID 08/04/2014 01/28/2015 Inactive [SAVINGS FOR NON -COVERED DRUGS -- BIN:494215, PCN: ASPROD1, Group: XXXXX, ID# XXXXXXX, Questions: . THIS IS NOT INSURANCE.] Bromfed DM 2 mg-30 mg-10 mg/5 mL syrup RxNorm: 0141682 1 -2 Teaspoon(s) PO Q4H as needed for cough 06/10/2014 06/19/2014 Inactive [SAVINGS FOR UN INSURED PATIENTS -- BIN:046128, PCN: ASPROD1, Group: AME08, ID# [id number], Process claim through [employer], for questions: . THIS IS NOT INSURANCE.] Augmentin 875 mg-125 mg tablet RxNorm: 022790 1 Tablet(s) PO Q12H 0 06/10/2014 06/19/2014 Inactive [AttnRPh: Saving apply/adjud icate RxGRP:SG20 RxBIN:[id number] RxPCN: ID#:[id number]] Zocor 40 mg tablet RxNorm: 374688 Tablet(s) 1 TABLET(S ) PO QHS 1 TABLET(S) PO QHS 05/25/2014 08/22/2014 Inactive [AttnRPh: Saving apply/adjudicate RxGRP:SG20 RxBIN:[id number] RxPCN:HT ID#:[id number]] fluoxetine 40 mg capsule RxNorm: 189695 1 Capsule(s) PO QD 04/29/20 14 10/24/2014 Inactive [AttnRPh: Saving apply/adjud icate RxGRP:SG20 RxBIN:[id number] RxPCN:HT ID#:[id number]] diltiazem ER (XR/XT) 240 mg capsule,extended release,control led RxNorm: 698167 1 Capsule(s) PO QD 04/29/2014 10/24/2014 Inactive [AttnRPh: Leonelin g apply/adjudicate RxGRP:SG20 RxBIN:[id number] RxPCN:HT ID#:[id number]] Benicar HCT 40 mg-25 mg tablet RxNorm: 025085 1 Tablet(s) PO QD 09/201310/24/2014 Inactive [AttnRPh: Saving apply/adjud icate RxGRP:SG20 RxBIN:[id number] RxPCN:HT ID#:[id number]] Zocor 40 mg tablet RxNorm: 965069 1 TABLET(S) PO QHS 1 TABLET(S ) PO QHS 03/07/2014 05/25/2014 Inactive [AttnRPh: Saving chelsie ly/adjudicate RxGRP:SG20 RxBIN:[id number] RxPCN:HT ID#:[id number]] Zocor 40 mg tablet RxNorm: 850693 1 Tablet(s) PO QHS 1 TABLET(S ) PO QHS 12/06/2013 03/05/2014 Inactive [AttnRPh: Saving chelsie ly/adjudicate RxGRP:SG20 RxBIN:[id number] RxPCN:HT ID#:[id number]] diltiazem ER (XR/XT) 240 mg capsule,extended release,control led RxNorm: 079204 1 Capsule(s) PO QD 10/25/2013 04/22/2014 Inactive [AttnRPh: Leonelin g apply/adjudicate RxGRP:SG20 RxBIN:[id number] RxPCN:HT ID#:[id number]] fluoxetine 40 mg capsule RxNorm: 702835 1 Capsule(s) PO QD 10/26/19 14 04/22/2014 Inactive [AttnRPh: Saving apply/adjud icate RxGRP:SG20 RxBIN:[id number] RxPCN:HT ID#:[id number]] Zocor 40 mg tablet RxNorm: 031963 1 Tablet(s) PO QHS 1 TABLET(S ) PO QHS 09/13/2013 12/06/2013 Inactive metformin ER 1,000 mg tablet,extended release 24hr RxNorm: 8 93542 Tablet(s) PO TAKE 1 TABLET BY MOUTH TWICE DAILY (REPLACES 500MG DOSE) 07/26/201303/2015 Inactive diltiazem ER (XR/XT) 240 mg capsule,extended release,control led RxNorm: 169972 1 Capsule(s) PO QD 05/03/2013 10/25/2013 Inactive fluoxetine 40 mg capsule RxNorm: 443365 1 Capsule(s) PO QD 05/03/20 13 10/25/2013 Inactive Benicar HCT 40 mg-25 mg tablet RxNorm: 492162 1 Tablet(s) PO QD 01/201304/29/2014 Inactive Zocor 40 mg tablet RxNorm: 875110 1 Tablet(s) PO QHS 12/10/201209/13 Inactive fluoxetine 40 mg capsule RxNorm: 070715 1 Capsule(s) PO QD 11/10/19 13 05/03/2013 Inactive diltiazem ER (XR/XT) 240 mg capsule,extended release,control led RxNorm: 423817 1 Capsule(s) PO QD 11/09/2012 05/03/2013 Inactive Benicar HCT 40 mg-25 mg tablet RxNorm: 839139 1 Tablet(s) PO QD 05/03/2013 Inactive metformin ER 1,000 mg tablet,extended release 24hr RxNorm: 8 67129 Tablet(s) PO TAKE 1 TABLET BY MOUTH TWICE DAILY (REPLACES 500MG DOSE) 08/05/201206/2013 Inactive Zocor 40 mg tablet RxNorm: 685788 1 Tablet(s) PO QHS 06/15/201212/09 Inactive fluoxetine 40 mg capsule RxNorm: 541258 1 Capsule(s) PO QD 05/15/20 12 11/08/2012 Inactive Neurontin 600 mg Tab RxNorm: 351923 1 Tablet(s) PO QHS 12/03/2011 Inactive metformin ER 1,000 mg tablet,extended release 24hr RxNorm: 8 44290 1 Tablet(s) PO BID replaces 500mg dose 12/03/2011 07/26/2013 Inactive Zocor 40 mg tablet RxNorm: 182606 1 Tablet(s) PO QHS 12/03/201106/15 Inactive fluoxetine 20 mg capsule RxNorm: 004126 1 Capsule(s) PO QD 12/03/19 12 05/24/2012 Inactive diltiazem ER (XR/XT) 240 mg capsule,extended release,control led RxNorm: 457545 1 Capsule(s) PO QD 11/15/2011 11/09/2012 Inactive Benicar HCT 40 mg-25 mg tablet RxNorm: 642129 1 Tablet(s) PO QD 02/16/2012 Inactive metformin ER 500 mg 24 hr Tab RxNorm: 650431 1 Tablet(s) PO BID 12/02/2011 Inactive Zocor 40 mg Tab RxNorm: 353036 1 Tablet(s) PO QHS 05/30/2011 11/25/19 12 Inactive fluoxetine 20 mg Cap RxNorm: 451440 1 Capsule(s) PO QD 05/28/2011 Inactive Neurontin 600 mg Tab RxNorm: 127860 1 Tablet(s) PO QHS 05/28/2011 Inactive Neurontin 600 mg Tab RxNorm: 939349 1 Tablet(s) PO QHS 02/22/201106/2011 Inactive Neurontin 600 mg Tab RxNorm: 861569 1 Tablet(s) PO QHS 01/14/2011 Inactive Neurontin 300 mg Cap RxNorm: 180741 1 Capsule(s) PO QHS 01/14/2011 Inactive Neurontin 600 mg Tab RxNorm: 183216 1 Tablet(s) PO QHS 01/14/2011 Inactive Medrol (Vipul) 4 mg Tabs in a Dose Pack RxNorm: 455028 Tablet(s) PO 0 01/02/2011 08/28/2011 Inactive as directed fluoxetine 20 mg Cap RxNorm: 765049 1 Capsule(s) PO QD 12/10/201006/2011 Inactive Zocor 40 mg Tab RxNorm: 232883 1 Tablet(s) PO QHS 12/03/2010 05/29/19 12 Inactive Neurontin 300 mg Cap RxNorm: 602887 1 Capsule(s) PO QHS 12/03/2010 Inactive Septra DS 800 mg-160 mg Tab RxNorm: 286465 1 Tablet(s) PO BID 11/2912/08/2010 Inactive diltiazem ER (XR/XT) 240 mg Continuous Release Cap RxNorm: 8 61574 1 Capsule(s) PO QD 11/20/2010 11/15/2011 Inactive Neurontin 300 mg Cap RxNorm: 605693 1 Capsule(s) PO QHS 11/06/2010 Inactive Neurontin 300 mg Cap RxNorm: 555194 1 Capsule(s) PO QHS 11/06/2010 Inactive Celebrex 200 mg Cap RxNorm: 542348 1 Capsule(s) PO BID 10/24/2010 Inactive fluoxetine 20 mg Cap RxNorm: 973186 1 Capsule(s) PO QD 06/07/201003/2011 Inactive Zocor 40 mg Tab RxNorm: 453842 1 Tablet(s) PO QHS 06/05/2010 12/02/19 11 Inactive Benicar HCT 40 mg-25 mg Tab RxNorm: 962658 1 Tablet(s) PO QD 200908/21/2011 Inactive Diltiazem 240 mg Continuous Release Cap RxNorm: 384451 1 Capsul e(s) PO QD 11/09/2009 09/02/2018 Inactive Avelox 400 mg Tab RxNorm: 733891 1 Tablet(s) PO QD 08/22/2009 010 Inactive ProAir HFA 90 mcg/actuation aerosol inhaler RxNorm: 429594 2 Puff(s) INH Q4H as needed No Start Date Active tramadol 50 mg tablet RxNorm: 705751 1-2 Tablet(s) PO TID as ne eded for pain No Start Date Active Tylenol Arthritis 650 mg Tab RxNorm: 8391685 2 Tablet(s) PO QD No Sta rt Date Active Celebrex 200 mg Cap RxNorm: 355514 1 Capsule(s) PO BID No Start Date 08/08/2015 Inactive Medrol (Vipul) 4 mg Tabs in a Dose Pack RxNorm: 830119 Tablet(s) PO N o Start Date 01/01/2011 Inactive as directed Promethazine-DM 6.25 mg-15 mg/5 mL Syrup RxNorm: 217431 1-2 Teaspoon(s) PO Q4H prn cough No Start Date 08/28/2011 Inactive Claritin 10 mg tablet RxNorm: 175121 1 Tablet(s) PO QD No Start Date 08/08/2015 Inactive [id number] Oral RxNorm: Oral No Start Da te 03/28/2019 Inactive Breo Ellipta 200 mcg-25 mcg/dose powder for inhalation RxNor m: 2983690 1 Puff(s) INH QD No Start Date 04/09/2017 Inactive metformin 500 mg Tab RxNorm: 230840 1 Tablet(s) PO QD No Start Date 0 08/17/2011 Inactive Diltiazem 240 mg Continuous Release Cap RxNorm: 525598 1 Capsul e(s) PO BID No Start Date 11/08/2009 Inactive fluoxetine 20 mg Cap RxNorm: 459988 1 Capsule(s) PO QD No Start Date 06/07/2010 Inactive Multivitamin & Mineral Formula Oral RxNorm: Oral No Start Da te 03/28/2019 Inactive Medrol (Vipul) 4 mg tablets in a dose pack RxNorm: 979127 Tablet(s) PO as directed No Start Date 05/28/2012 Inactive Fish Oil 1,000 mg Cap RxNorm: 1 Capsule(s) PO QD No Start Date 07/2018 Inactive Nexium 40 mg Cap RxNorm: 694269 1 Capsule(s) PO QD No Start Date 07/24 Inactive fluticasone 50 mcg/actuation nasal spray,suspension RxNorm: 6100113 2 Goldonna NASAL QD to each nostril No Start Date 08/03/2017 Inactive Viagra 100 mg tablet RxNorm: 420463 1 Tablet(s) PO as needed No Sta rt Date 09/17/2015 Inactive prednisone 20 mg tablet RxNorm: 807557 1 Tablet(s) PO B ID for 4 days then 1 po daily for 4 days No Start Date 11/23/2018 Inactive Benicar HCT 40 mg-25 mg Tab RxNorm: 365071 1 Tablet(s) PO QD No Sta rt [...] Date S ervice Location MICROALBUMIN URINE RANDOM 42726 MICRL MG/L 5.8 MG/L 03/2011 Unknown MICROALBUMIN URINE RANDOM 61901 XM.ALB/CRE 5.2 MG/GCR Unknown MICROALBUMIN URINE RANDOM 62797 CREAT MG/D 111 MG/DL 03/2011 Unknown MICROALBUMIN URINE RANDOM 45490 CRE/100 1.11 G/L 12/24 Unknown Procedures Procedure Codes Date FLU VACC PRSV FREE INC ANTIG 65 AND OLDER CPT-4: 11692 03/04/2019 ADMIN PNEUMOCOCCAL VACCINE CPT-4: G0009 03/04/2019 ADMIN INFLUENZA VIRUS VAC CPT-4: G0008 03/04/2019 FLU VACC PRSV FREE INC ANTIG 65 AND OLDER CPT-4: 28793 03/04/2019 PNEUMOCOCCAL VACC 23 RAYMON IM CPT-4: 37775 03/04/2019 THER/PROPH/DIAG INJ SC/IM CPT-4: 87543 08/11/2018 TRIAMCINOLONE ACET INJ NOS CPT-4: J3301 08/11/2018 DEXAMETHASONE SODIUM PHOS CPT-4: J1100 08/11/2018 THER/PROPH/DIAG INJ SC/IM CPT-4: 39942 07/16/2018 METHYLPREDNISOLONE INJECTION CPT-4: J2930 07/16/2018 INFLUENZA ASSAY W/OPTIC CPT-4: 56156 07/16/2018 THER/PROPH/DIAG INJ SC/IM CPT-4: 72604 07/13/2018 TRIAMCINOLONE ACET INJ NOS CPT-4: J3301 07/13/2018 THER/PROPH/DIAG INJ SC/IM CPT-4: 13793 05/04/2018 METHYLPREDNISOLONE INJECTION CPT-4: J2930 05/04/2018 FLU VACC PRSV FREE INC ANTIG 65 AND OLDER CPT-4: 08617 02/10/2018 PNEUMOCOCCAL VACC 13 RAYMON IM CPT-4: 26057 02/10/2018 ADMIN INFLUENZA VIRUS VAC CPT-4: G0008 02/10/2018 ADMIN PNEUMOCOCCAL VACCINE CPT-4: G0009 02/10/2018 THER/PROPH/DIAG INJ SC/IM CPT-4: 98307 09/09/2017 TRIAMCINOLONE ACET INJ NOS CPT-4: J3301 09/09/2017 ALBUTEROL NON-COMP UNIT CPT-4: J7613 04/10/2017 AIRWAY INHALATION TREATMENT CPT-4: 42619 04/10/2017 PRESCRIP TRANSMIT VIA ERX SY CPT-4: G8553 04/10/2017 FLU VACC PRSV FREE INC ANTIG 65 AND OLDER CPT-4: 78663 03/28/2017 ADMIN INFLUENZA VIRUS VAC CPT-4: G0008 03/28/2017 PRESCRIP TRANSMIT VIA ERX SY CPT-4: G8553 08/27/2016 PRESCRIP TRANSMIT VIA ERX SY CPT-4: G8553 06/14/2016 ALBUTEROL NON-COMP UNIT CPT-4: J7613 06/13/2016 AIRWAY INHALATION TREATMENT CPT-4: 28717 06/13/2016 PRESCRIP TRANSMIT VIA ERX SY CPT-4: [...] CPT-4: G8553 11/07/2014 THER/PROPH/DIAG INJ SC/IM CPT-4: 81593 09/21/2014 METHYLPREDNISOLONE INJECTION CPT-4: J2930 09/21/2014 PRESCRIP TRANSMIT VIA ERX SY CPT-4: G8553 09/21/2014 PRESCRIP TRANSMIT VIA ERX SY CPT-4: G8553 06/10/2014 URINALYSIS NONAUTO W/O SCOPE CPT-4: 69639 06/01/2012 PRESCRIP TRANSMIT VIA ERX SY CPT-4: G8553 05/25/2012 PRESCRIP TRANSMIT VIA ERX SY CPT-4: G8553 12/03/2011 CUR TOBACCO NON-USER CPT-4: G8457 05/30/2011 PRESCRIP TRANSMIT VIA ERX SY CPT-4: G8553 05/30/2011 URINALYSIS NONAUTO W/O SCOPE CPT-4: 52597 01/01/2011 URINE CULTURE/ COLONY COUNT CPT-4: 44382 01/01/2011 CUR TOBACCO NON-USER CPT-4: G8457 01/01/2011 [...] 1: 114/68 Code: 8480-6 BMI: 43.5 Code: 90218-4 Heart Rate 1: 52 bpm Height: 6'1" [...] 1: 136/72 Code: 8480-6 BMI: 42.7 Code: 34751-5 Heart Rate 1: 60 bpm Height: 6'1" Respiratory Rate: 22 bpm SpO2: 95% Tempera ture: 37.1 (C) / 98.7 (F) Weight: 324 lbs 02/10/2018 Blood Pressure 1: 146/78 Code: 8480-6 BMI: 42.4 Code: 66700-7 Heart Rate 1: 64 bpm Height: 6'1" Respiratory Rate: 22 bpm SpO2: 95% Tempera ture: 36.5 (C) / 97.7 (F) Weight: 321 lbs 11/05/2017 Blood Pressure 1: 128/84 Code: 8480-6 BMI: 42.9 Code: 90408-9 Heart Rate 1: 52 bpm Height: 6'1" Respiratory Rate: 22 bpm SpO2: 95% Tempera ture: 36.3 (C) / 97.3 (F) Weight: 325 lbs 09/09/2017 Blood Pressure 1: 162/90 Code: 8480-6 BMI: 42.5 Code: 70497-3 Heart Rate 1: 60 bpm Height: 6'1" Respiratory Rate: 24 bpm SpO2: 95% Tempera ture: 36.4 (C) / 97.6 (F) Weight: 322 lbs 08/07/2017 Blood Pressure 1: 152/90 Code: 8480-6 BMI: 42.2 Code: 14938-5 Heart Rate 1: 60 bpm Height: 6'1" Respiratory Rate: 26 bpm SpO2: 94% Tempera ture: 36.6 (C) / 97.8 (F) Weight: 320 lbs 08/04/2017 Blood Pressure 1: 150/86 Code: 8480-6 BMI: 42.7 Code: 81737-5 Heart Rate 1: 64 bpm Height: 6'1" Respiratory Rate: 20 bpm SpO2: 94% Tempera ture: 36.3 (C) / 97.3 (F) Weight: 324 lbs 06/04/2017 Blood Pressure 1: 164/90 Code: 8480-6 Heart Rate 1: 60 bpm Respiratory Rate: 24 bpm SpO2: 94% Temperature: 36.8 (C) / 98.3 (F) 06/02/2017 Blood Pressure 1: 162/80 Code: 8480-6 BMI: 42.9 Code: 13945-4 Heart Rate 1: 66 bpm Height: 6'1" Respiratory Rate: 22 bpm SpO2: 98% Tempera ture: 36.6 (C) / 97.8 (F) Weight: 325 lbs 05/05/2017 Blood Pressure 1: 164/94 Code: 8480-6 BMI: 41.4 Code: 63972-3 Heart Rate 1: 64 bpm Height: 6'1" Respiratory Rate: 22 bpm SpO2: 95% Tempera ture: 36.4 (C) / 97.5 (F) Weight: 314 lbs 04/10/2017 Blood Pressure 1: 136/78 Code: 8480-6 BMI: 42.0 Code: 41321-9 Heart Rate 1: 76 bpm Height: 6'1" Respiratory Rate: 24 bpm SpO2: 92% Tempera ture: 35.9 (C) / 96.7 (F) Weight: 318 lbs 02/03/2017 Blood Pressure 1: 134/82 Code: 8480-6 BMI: 41.7 Code: 13045-3 Heart Rate 1: 72 bpm Height: 6'1" Respiratory Rate: 24 bpm SpO2: 95% Tempera ture: 36.1 (C) / 97.0 (F) Weight: 316 lbs 10/30/2016 Blood Pressure 1: 126/74 Code: 8480-6 BMI: 41.3 Code: 76506-5 Heart Rate 1: 68 bpm Height: 6'1" Respiratory Rate: 20 bpm Temperature: 37 .1 (C) / 98.8 (F) Weight: 313 lbs 08/30/2016 Blood Pressure 1: 146/80 Code: 8480-6 BMI: 41.7 Code: 51064-7 Heart Rate 1: 64 bpm Height: 6'1" Respiratory Rate: 24 bpm SpO2: 94% Tempera ture: 36.6 (C) / 97.8 (F) Weight: 316 lbs 08/27/2016 Blood Pressure 1: 124/78 Code: 8480-6 Heart Rate 1: 66 bpm Height: 6'2" Respiratory Rate: 18 bpm SpO2: 94% Temperature: 36.6 (C) / 97.8 (F) Weight: 07/02/2016 Blood Pressure 1: 126/78 Code: 8480-6 BMI: 41.4 Code: 86843-4 Heart Rate 1: 68 bpm Height: 6'1" Respiratory Rate: 24 bpm SpO2: 94% Tempera ture: 36.6 (C) / 97.8 (F) Weight: 314 lbs 06/14/2016 Blood Pressure 1: 146/82 Code: 8480-6 Heart Rate 1: 80 bpm Respiratory Rate: 20 bpm SpO2: 95% Temperature: 37.3 (C) / 99.2 (F) 06/13/2016 Blood Pressure 1: 146/84 Code: 8480-6 BMI: 40.5 Code: 61832-8 Heart Rate 1: 66 bpm Height: 6'1" Respiratory Rate: 28 bpm SpO2: 93% Tempera ture: 35.8 (C) / 96.4 (F) Weight: 307 lbs 05/14/2016 Blood Pressure 1: 146/90 Code: 8480-6 BMI: 41.2 Code: 63861-3 Heart Rate 1: 68 bpm Height: 6'1" Respiratory Rate: 26 bpm Temperature: 36 .8 (C) / 98.2 (F) Weight: 312 lbs 04/29/2016 Blood Pressure 1: 152/90 Code: 8480-6 BMI: 41.0 Code: 87063-2 Heart Rate 1: 68 bpm Height: 6'1" Respiratory Rate: 26 bpm SpO2: 94% Tempera ture: 36.1 (C) / 96.9 (F) Weight: 311 lbs 04/22/2016 Blood Pressure 1: 152/94 Code: 8480-6 BMI: 40.9 Code: 15536-5 Heart Rate 1: 68 bpm Height: 6'1" Respiratory Rate: 24 bpm SpO2: 94% Tempera ture: 36.2 (C) / 97.2 (F) Weight: 310 lbs 04/01/2016 Blood Pressure 1: 156/78 Code: 8480-6 BMI: 40.6 Code: 02964-8 Heart Rate 1: 84 bpm Height: 6'1" Respiratory Rate: 22 bpm SpO2: 95% Tempera ture: 37.1 (C) / 98.7 (F) Weight: 308 lbs 11/30/2015 Blood Pressure 1: 142/80 Code: 8480-6 BMI: 40.5 Code: 58715-1 Heart Rate 1: 88 bpm Height: 6'1" Respiratory Rate: 22 bpm Temperature: 36 .2 (C) / 97.2 (F) Weight: 307 lbs 08/29/2015 Blood Pressure 1: 132/70 Code: 8480-6 BMI: 40.0 Code: 13137-9 Heart Rate 1: 76 bpm Height: 6'1" Respiratory Rate: 24 bpm SpO2: 96% Tempera ture: 36.7 (C) / 98.0 (F) Weight: 303 lbs 08/14/2015 Blood Pressure 1: 126/80 Code: 8480-6 BMI: 39.4 Code: 88401-0 Heart Rate 1: 92 bpm Height: 6'1" Respiratory Rate: 24 bpm SpO2: 94% Tempera ture: 37.8 (C) / 100.0 (F) Weight: 299 lbs 08/09/2015 Blood Pressure 1: 146/82 Code: 8480-6 Heart Rate 1: 82 bpm Respiratory Rate: 22 bpm SpO2: 93% Temperature: 35.9 (C) / 96.6 (F) We ight: 310 lbs 05/22/2015 Blood Pressure 1: 156/76 Code: 8480-6 BMI: 41.0 Code: 13725-8 Heart Rate 1: 100 bpm Height: 6'1" Respiratory Rate: 22 bpm Temperature: 37 .2 (C) / 98.9 (F) Weight: 311 lbs 02/13/2015 Blood Pressure 1: 166/90 Code: 8480-6 BMI: 41.2 Code: 71669-1 Heart Rate 1: 72 bpm Height: 6'1" Respiratory Rate: 24 bpm SpO2: 93% Tempera ture: 36.9 (C) / 98.5 (F) Weight: 312 lbs 11/07/2014 Blood Pressure 1: 134/70 Code: 8480-6 BMI: 40.5 Code: 50828-5 Heart Rate 1: 76 bpm Height: 6'1" Respiratory Rate: 24 bpm Temperature: 36 .9 (C) / 98.4 (F) Weight: 307 lbs 10/04/2014 Blood Pressure 1: 144/86 Code: 8480-6 BMI: 40.1 Code: 11346-2 Heart Rate 1: 76 bpm Height: 6'1" Respiratory Rate: 28 bpm Temperature: 36 .6 (C) / 97.9 (F) Weight: 304 lbs 09/22/2014 Blood Pressure 1: 142/80 Code: 8480-6 BMI: 40.0 Code: 22936-8 Heart Rate 1: 80 bpm Height: 6'1" Respiratory Rate: 22 bpm SpO2: 96% Tempera ture: 36.6 (C) / 97.8 (F) Weight: 303 lbs 09/21/2014 Blood Pressure 1: 160/66 Code: 8480-6 BMI: 40.0 Code: 55054-7 Heart Rate 1: 90 bpm Height: 6'1" Respiratory Rate: 26 bpm SpO2: 94% Tempera ture: 35.7 (C) / 96.2 (F) Weight: 303 lbs 06/28/2014 Blood Pressure 1: 132/80 Code: 8480-6 BMI: 41.0 Code: 13602-7 Heart Rate 1: 64 bpm Height: 6' Respiratory Rate: 20 bpm Temperature: 36 .7 (C) / 98.0 (F) Weight: 302 lbs 06/10/2014 Blood Pressure 1: 152/70 Code: 8480-6 BMI: 41.1 Code: 21813-0 Heart Rate 1: 76 bpm Height: 6' Respiratory Rate: 20 bpm Temperature: 36 .6 (C) / 97.8 (F) Weight: 303 lbs 03/29/2014 Blood Pressure 1: 132/78 Code: 8480-6 BMI: 40.6 Code: 01115-9 Heart Rate 1: 84 bpm Height: 6' Respiratory Rate: 22 bpm Temperature: 37 .1 (C) / 98.8 (F) Weight: 299 lbs 11/30/2013 Blood Pressure 1: 136/84 Code: 8480-6 BMI: 39.2 Code: 52133-0 Heart Rate 1: 76 bpm Height: 6' Respiratory Rate: 20 bpm Temperature: 36 .8 (C) / 98.2 (F) Weight: 289 lbs 08/03/2013 Blood Pressure 1: 144/80 Code: 8480-6 Heart Rate 1: 86 bpm Respiratory Rate: 20 bpm Temperature: 36.6 (C) / 97.8 (F) Weight: 296 lbs 04/06/2013 Blood Pressure 1: 142/90 Code: 8480-6 BMI: 40.3 Code: 22971-6 Heart Rate 1: 88 bpm Height: 6' Respiratory Rate: 20 bpm Temperature: 36 .6 (C) / 97.8 (F) Weight: 297 lbs 12/01/2012 Blood Pressure 1: 124/78 Code: 8480-6 BMI: 38.7 Code: 55312-9 Heart Rate 1: 76 bpm Height: 6' Respiratory Rate: 20 bpm Temperature: 37 .2 (C) / 98.9 (F) Weight: 285 lbs 08/04/2012 Blood Pressure 1: 128/80 Code: 8480-6 BMI: 38.2 Code: 21490-0 Heart Rate 1: 76 bpm Height: 6' Respiratory Rate: 20 bpm Temperature: 37 .0 (C) / 98.6 (F) Weight: 282 lbs 05/29/2012 Blood Pressure 1: 138/78 Code: 8480-6 BMI: 36.6 Code: 14171-4 Heart Rate 1: 66 bpm Height: 6' Temperature: 36.7 (C) / 98.1 (F) Weight: 270 lbs 05/25/2012 Blood Pressure 1: 128/72 Code: 8480-6 BMI: 39.9 Code: 64751-7 Heart Rate 1: 74 bpm Height: 6' Temperature: 36.1 (C) / 97.0 (F) Weight: 294 lbs 04/07/2012 Blood Pressure 1: 124/76 Code: 8480-6 BMI: 39.9 Code: 72501-1 Heart Rate 1: 72 bpm Height: 6' Respiratory Rate: 20 bpm Temperature: 36 .9 (C) / 98.5 (F) Weight: 294 lbs 12/16/2011 Blood Pressure 1: 128/80 Code: 8480-6 BMI: 40.8 Code: 34505-6 Heart Rate 1: 74 bpm Height: 6' Temperature: 36.6 (C) / 97.8 (F) Weight: 301 lbs 12/03/2011 Blood Pressure 1: 132/76 Code: 8480-6 BMI: 40.8 Code: 93976-8 Heart Rate 1: 68 bpm Height: 6' Respiratory Rate: 20 bpm Temperature: 36 .8 (C) / 98.2 (F) Weight: 301 lbs 08/29/2011 Blood Pressure 1: 140/68 Code: 8480-6 BMI: 40.8 Code: 13237-1 Heart Rate 1: 80 bpm Height: 6' Respiratory Rate: 20 bpm Temperature: 36 .4 (C) / 97.6 (F) Weight: 301 lbs 05/30/2011 Blood Pressure 1: 134/82 Code: 8480-6 BMI: 41.5 Code: 17132-8 Heart Rate 1: 76 bpm Height: 6' [...] 1: 126/72 Code: 8480-6 BMI: 41.2 Code: 36442-9 Heart Rate 1: 76 bpm Height: 6' [...] 1: 152/90 Code: 8480-6 BMI: 37.7 Code: 78124-3 Heart Rate 1: 92 bpm Height: 6'1" [...] dm Encounters Encounter Performer Location Codes Date ([id number]) OFFICE/OUTPATIENT VISIT EST Diagnosis: Chronic obstructive pulmonary disease with (acute) exacerbation[ICD10: J44.1] Neela HYMAN [employer] CPT- 4: 30191 08/10/2019 ([id number]) OFFICE/OUTPATIENT VISIT EST Diagnosis: Sore on toe[ICD10: L98.9] Neela VASQUEZ [employer] 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] Neela Yenni HYMAN DO [facility] CPT-4: 26772 03/29/2019 ([id number]) NURSE/OUTPATIENT VISIT EST Diagnosis: PNEUMOCOCCAL VACCINE[ICD10: Z23] Neela HYMAN DO [facility] CPT-4: 26564 03/04/2019 ([id number]) OFFICE/OUTPATIENT VISIT EST Diagnosis: Chronic obstructive pulmonary disease with (acute) exacerbation[ICD10: J44.1] Diagnosis: Other nonspecific abnormal finding of lung field[ICD10: R91.8] Neela HYMAN DO [facility] CPT-4: 51124 01/05/2019 ([id number]) OFFICE/OUTPATIENT VISIT EST Diagnosis: Solitary pulmonary nodule[ICD10: R91.1] 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] Diagnosis: Tinea corporis[ICD10: B35.4] Neela HYMAN DO [facility] CPT-4: 29692 12/09/2018 ([id number]) OFFICE/OUTPATIENT VISIT EST Diagnosis: COUGH[ICD10: R05] Diagnosis: Chronic obstructive pulmonary disease, unspecified[ICD10: J44.9] Diagnosis: Other disorders of lung[ICD10: J98.4] Diagnosis: Other nonspecific abnormal finding of lung field[ICD10: R91.8] Neela HYMAN DO [facility] CPT-4: 83068 11/24/2018 ([id number]) OFFICE/OUTPATIENT VISIT EST Diagnosis: Pneumonia, unspecified organism[ICD10: J18.9] Amita Henderson NEELA HYMAN DO [facility] CPT-4: 76264 09/16/2018 ([id number]) OFFICE/OUTPATIENT VISIT EST Diagnosis: Pneumonia, unspecified organism[ICD10: J18.9] Neela HYMAN DO [facility] CPT-4: 95397 09/03/2018 ([id number]) OFFICE/OUTPATIENT VISIT EST Diagnosis: Personal history of pneumonia (recurrent)[ICD10: Z87.01] Diagnosis: Cough[ICD10: R05] Diagnosis: Essential (primary) hypertension[ICD10: I10] Diagnosis: Type 2 diabetes mellitus with hyperglycemia[ICD10: E11.65] Amitacalvin Henderson NEELA Octavio ZHANG [employer] [facility] CPT-4: 47406 08/27/2018 OFFICE/OUTPATIENT VISIT EST Diagnosis: Pneumonia, unspecified organism[ICD10: J18.9] Diagnosis: Chronic obstructive pulmonary disease with (acute) exacerbation[ICD10: J44.1] Diagnosis: Other specified symptoms and signs involving the circulatory and respiratory systems[ICD10: R09.89] Diagnosis: Essential (primary) hypertension[ICD10: I10] Amita Santiagolincoln MURILLO [employer] [facility] CPT-4: 28957 08/13/2018 OFFICE/OUTPATIENT VISIT EST Diagnosis: Pneumonia, unspecified organism[ICD10: J18.9] Diagnosis: Other specified symptoms and signs involving the circulatory and respiratory systems[ICD10: R09.89] Amita Santiagolincoln [place] JulissaMendez [employer] [facility] CPT-4: 85306 08/11/2018 ([id number]) OFFICE/OUTPATIENT VISIT EST Diagnosis: Dyspnea, unspecified[ICD10: R06.00] Diagnosis: Chronic obstructive pulmonary disease with (acute) exacerbation[ICD10: J44.1] Diagnosis: Pneumonia, unspecified organism[ICD10: J18.9] Amita Santiagolincoln [place] Julissa [employer] [facility] CPT-4: 92817 07/16/2018 ([id number]) OFFICE/OUTPATIENT VISIT EST Diagnosis: Acute bronchitis due to other specified organisms[ICD10: J20.8] Diagnosis: Cough[ICD10: R05] Amita Santiagodebbie [place]URILLO [employer] [facility] T-4: 03282 07/13/2018 ([id number]) OFFICE/OUTPATIENT VISIT EST Diagnosis: Essential (primary) hypertension[ICD10: I10] Diagnosis: Chronic obstructive pulmonary disease, unspecified[ICD10: J44.9] Diagnosis: Type 2 diabetes mellitus with hyperglycemia[ICD10: E11.65] Diagnosis: Mixed hyperlipidemia[ICD10: E78.2] Neela STERLING [employer] [facility] CPT-4: 66927 06/03/2018 ([id number]) OFFICE/OUTPATIENT VISIT EST Diagnosis: Chronic obstructive pulmonary disease, unspecified[ICD10: J44.9] Gely MURILLO [employer] CPT-4: 93145 05/04/2018 ([id number]) OFFICE/OUTPATIENT VISIT EST Diagnosis: Essential (primary) hypertension[ICD10: I10] Diagnosis: Localized edema[ICD10: R60.0] Neela HYMAN DO [facility] CPT-4: 98741 03/03/2018 ([id number]) OFFICE/OUTPATIENT VISIT EST Diagnosis: Localized edema[ICD10: R60.0] Neela HYMAN DO [facility] CPT-4: 11407 02/17/2018 ([id number]) OFFICE/OUTPATIENT VISIT EST Diagnosis: FLU VACCINE[ICD10: Z23] Diagnosis: PNEUMOCOCCAL VACCINE[ICD10: Z23] Diagnosis: Type 2 diabetes mellitus without complications[ICD10: E11.9] Diagnosis: Mixed hyperlipidemia[ICD10: E78.2] Diagnosis: Essential (primary) hypertension[ICD10: I10] Diagnosis: Localized edema[ICD10: R60.0] Diagnosis: Chronic obstructive pulmonary disease, unspecified[ICD10: J44.9] Neela HYMAN [facility] CPT-4: 76993 02/10/2018 ([id number]) OFFICE/OUTPATIENT VISIT EST Diagnosis: Type 2 diabetes mellitus with hyperglycemia[ICD10: E11.65] Diagnosis: Mixed hyperlipidemia[ICD10: E78.2] Diagnosis: Essential (primary) hypertension[ICD10: I10] Diagnosis: Chronic obstructive pulmonary disease, unspecified[ICD10: J44.9] Diagnosis: Cutaneous abscess of back [any part, except buttock][ICD10: L02.212] Neela HYMAN [facility] CPT-4: 50264 11/05/2017 ([id number]) OFFICE/OUTPATIENT VISIT EST Diagnosis: Allergic urticaria[ICD10: L50.0] Gely HYMAN DO [facility] CPT-4: 15501 09/09/2017 ([id number]) OFFICE/OUTPATIENT VISIT EST Diagnosis: Generalized enlarged lymph nodes[ICD10: R59.1] Diagnosis: Acute gastritis without bleeding[ICD10: K29.00] Gely HYMAN [facility] CPT-4: 13072 08/07/2017 ([id number]) OFFICE/OUTPATIENT VISIT EST Diagnosis: Type 2 diabetes mellitus without complications[ICD10: E11.9] Diagnosis: Mixed hyperlipidemia[ICD10: E78.2] Diagnosis: Essential (primary) hypertension[ICD10: I10] Neela HYMAN DO [facility] CPT-4: 54219 08/04/2017 ([id number]) OFFICE/OUTPATIENT VISIT EST Diagnosis: Zoster without complications[ICD10: B02.9] Diagnosis: Acute sialoadenitis[ICD10: K11.21] Gely HYMAN DO [facility] CPT-4: 14865 06/04/2017 OFFICE/OUTPATIENT VISIT EST Diagnosis: Zoster without complications[ICD10: B02.9] Diagnosis: Acute sialoadenitis[ICD10: K11.21] Gely HYMAN [facility] CPT-4: 49033 06/02/2017 ([id number]) OFFICE/OUTPATIENT VISIT EST Diagnosis: Type 2 diabetes mellitus without complications[ICD10: E11.9] Diagnosis: Mixed hyperlipidemia[ICD10: E78.2] Diagnosis: Essential (primary) hypertension[ICD10: I10] Diagnosis: Chronic obstructive pulmonary disease, unspecified[ICD10: J44.9] Neela HYMAN [facility] CPT-4: 99522 05/05/2017 OFFICE/OUTPATIENT VISIT EST Diagnosis: Chronic obstructive pulmonary disease with acute lower respiratory infection[ICD10: J44.0] Diagnosis: Impacted cerumen, bilateral[ICD10: H61.23] Gely HYMAN [facility] CPT-4: 63366 04/10/2017 ([id number]) OFFICE/OUTPATIENT VISIT EST Diagnosis: FLU VACCINE[ICD10: Z23] Neela BUI [facility] CPT-4: 19226 03/28/2017 ([id number]) OFFICE/OUTPATIENT VISIT EST Diagnosis: Type 2 diabetes mellitus without complications[ICD10: E11.9] Diagnosis: Mixed hyperlipidemia[ICD10: E78.2] Diagnosis: Essential (primary) hypertension[ICD10: I10] Diagnosis: Chronic obstructive pulmonary disease, unspecified[ICD10: J44.9] Neela HYMAN DO [facility] CPT-4: 29093 02/03/2017 ([id number]) OFFICE/OUTPATIENT VISIT EST Diagnosis: Type 2 diabetes mellitus with hyperglycemia[ICD10: E11.65] Diagnosis: Mixed hyperlipidemia[ICD10: E78.2] Diagnosis: Essential (primary) hypertension[ICD10: I10] Diagnosis: Chronic obstructive pulmonary disease, unspecified[ICD10: J44.9] Neela HYMAN DO [facility] CPT-4: 38666 10/30/2016 ([id number]) NO CHARGE Diagnosis: Acute bronchitis, unspecified[ICD10: J20.9] Sammi HYMAN [employer] [facility] CPT-4: 40675 08/30/2016 ([id number]) OFFICE/OUTPATIENT VISIT EST Diagnosis: Acute bronchitis, unspecified[ICD10: J20.9] Diagnosis: Other seasonal allergic rhinitis[ICD10: J30.2] Sammi HYMAN [facility] [facility] CPT-4: 80436 08/27/2016 ([id number]) OFFICE/OUTPATIENT VISIT EST Diagnosis: Type 2 diabetes mellitus without complications[ICD10: E11.9] Diagnosis: Mixed hyperlipidemia[ICD10: E78.2] Diagnosis: Essential (primary) hypertension[ICD10: I10] Neela HYMAN [facility] CPT-4: 05122 07/02/2016 ([id number]) OFFICE/OUTPATIENT VISIT EST Diagnosis: Acute bronchitis, unspecified[ICD10: J20.9] Sammi HYMAN [facility] CPT-4: 43000 06/14/2016 ([id number]) OFFICE/OUTPATIENT VISIT EST Diagnosis: Acute bronchitis, unspecified[ICD10: J20.9] Sammi HYMAN [facility] CPT-4: 81695 06/13/2016 ([id number]) OFFICE/OUTPATIENT VISIT EST Diagnosis: Essential (primary) hypertension[ICD10: I10] Neela HYMAN [facility] CPT-4: 57863 05/14/2016 ([id number]) OFFICE/OUTPATIENT VISIT EST Diagnosis: Essential (primary) hypertension[ICD10: I10] Neela HYMAN [facility] CPT-4: 88577 04/29/2016 ([id number]) OFFICE/OUTPATIENT VISIT EST Diagnosis: Unspecified abdominal pain[ICD10: R10.9] Diagnosis: Left lower quadrant pain[ICD10: R10.32] Diagnosis: Left upper quadrant pain[ICD10: R10.12] Diagnosis: Essential (primary) hypertension[ICD10: I10] Neela HYMAN DO [facility] CPT-4: 19492 04/22/2016 ([id number]) OFFICE/OUTPATIENT VISIT EST Diagnosis: Type 2 diabetes mellitus without complications[ICD10: E11.9] Diagnosis: Mixed hyperlipidemia[ICD10: E78.2] Diagnosis: Essential (primary) hypertension[ICD10: I10] Neela HYMAN [facility] CPT-4: 50992 04/01/2016 ([id number]) OFFICE/OUTPATIENT VISIT EST Diagnosis: Type 2 diabetes mellitus with hyperglycemia[ICD10: E11.65] Diagnosis: Mixed hyperlipidemia[ICD10: E78.2] Diagnosis: Essential (primary) hypertension[ICD10: I10] Neela HYMAN [facility] CPT-4: 87991 11/30/2015 ([id number]) OFFICE/OUTPATIENT VISIT EST Diagnosis: Type 2 diabetes mellitus with diabetic neuropathy, unspecified[ICD10: E11.40] Diagnosis: Essential (primary) hypertension[ICD10: I10] Diagnosis: Mixed hyperlipidemia[ICD10: E78.2] Neela HYMAN [facility] CPT-4: 72764 08/29/2015 ([id number]) OFFICE/OUTPATIENT VISIT EST Diagnosis: COUGH[ICD10: R05] Diagnosis: Wheezing[ICD10: R06.2] Diagnosis: Type 2 diabetes mellitus with diabetic neuropathy, unspecified[ICD10: E11.40] Neela HYMAN [facility] CPT-4: 27751 08/14/2015 ([id number]) OFFICE/OUTPATIENT VISIT EST Diagnosis: Other seasonal allergic rhinitis[ICD10: J30.2] Diagnosis: Dyspnea, unspecified[ICD10: R06.00] Diagnosis: Wheezing[ICD10: R06.2] Sammi Najera NEELA JulissaMendez YENNI ARTHUR [facility] CPT-4: 34586 08/09/2015 ([id number]) OFFICE/OUTPATIENT VISIT EST Diagnosis: Essential (primary) hypertension[ICD10: I10] Diagnosis: Type 2 diabetes mellitus with hyperglycemia[ICD10: E11.65] Diagnosis: Mixed hyperlipidemia[ICD10: E78.2] Neela STERLING Octavio HYMAN [facility] CPT-4: 99812 05/22/2015 ([id number]) OFFICE/OUTPATIENT VISIT EST Diagnosis: 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] Diagnosis: - I - HYPERTENSION[ICD9: 401.9] Diagnosis: - I - HYPERLIPIDEMIA NEC/NOS[ICD9: 272.4] Diagnosis: Left hand paresthesia[ICD9: 782.0] Neela STERLING JulissaMendez YENNI ARTHUR [facility] CPT-4: 57283 02/13/2015 ([id number]) OFFICE/OUTPATIENT VISIT EST Diagnosis: HYPERLIPIDEMIA NEC/NOS[ICD9: 272.4] Diagnosis: 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] Neela MURILLO JulissaMendez YENNI BYTEGRID [facility] CPT-4: 52117 11/07/2014 ([id number]) OFFICE/OUTPATIENT VISIT EST Diagnosis: ALLERGIC RHINITIS[ICD9: 477.9] Diagnosis: WHEEZING[ICD9: 786.07] Neela Cunningham SERGEMANOLO Gerald BYTEGRID [facility] CPT-4: 29663 10/04/2014 ([id number]) OFFICE/OUTPATIENT VISIT EST Diagnosis: BRONCHITIS, ACUTE[ICD9: 466.0] Diagnosis: WHEEZING[ICD9: 786.07] Loren Cunningham SERGEMANOLO R BYTEGRID [facility] CPT-4: 35359 09/22/2014 ([id number]) OFFICE/OUTPATIENT VISIT EST Diagnosis: DYSPNEA[ICD9: 786.09] Diagnosis: WHEEZING[ICD9: 786.07] Diagnosis: Arrhythmia[ICD9: 427.9] Loren Cunningham SERGEUSHA ER BYTEGRID [facility] CPT-4: 88908 09/21/2014 ([id number]) OFFICE/OUTPATIENT VISIT EST Diagnosis: DM W/O COMPLICATION TYPE II, 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] Diagnosis: - I - HYPERLIPIDEMIA NEC/NOS[ICD9: 272.4] Diagnosis: - I - HYPERTENSION[ICD9: 401.9] Neela Sergeushahao ANNNEELA JulissaMendez [facility] CPT-4: 56829 06/28/2014 OFFICE/OUTPATIENT VISIT EST Diagnosis: SINUSITIS, ACUTE[ICD9: 461.9] Diagnosis: OTITIS MEDIA NOS[ICD9: 382.9] Sarah OchoaDanie MURILLO JulissaMendez [facility] CPT-4: 09170 06/10/2014 ([id number]) OFFICE/OUTPATIENT VISIT EST Diagnosis: DM W/O COMPLICATION TYPE II[ICD9: 250.00] Diagnosis: - I - HYPERLIPIDEMIA NEC/NOS[ICD9: 272.4] Diagnosis: - I - HYPERTENSION[ICD9: 401.9] Neela Sergechristina MURILLO [facility]issaMendez [facility] CPT-4: 12769 03/29/2014 ([id number]) OFFICE/OUTPATIENT VISIT EST Diagnosis: DM W/O COMPLICATION TYPE II[ICD9: 250.00] Diagnosis: - I - HYPERTENSION[ICD9: 401.9] Diagnosis: - I - HYPERLIPIDEMIA NEC/NOS[ICD9: 272.4] Diagnosis: Hand lesion[ICD9: 709.9] Neela MURILLO JulissaMendez [facility]ADRIGAL [facility] CPT-4: 61800 11/30/2013 ([id number]) OFFICE/OUTPATIENT VISIT EST Diagnosis: DM W/O COMPLICATION TYPE II[ICD9: 250.00] Diagnosis: HYPERLIPIDEMIA NEC/NOS[ICD9: 272.4] Diagnosis: HYPERTENSION[ICD9: 401.9] Neela MURILLO JulissaMendez SERGE CHRISTINA [facility] CPT-4: 62349 08/03/2013 ([id number]) OFFICE/OUTPATIENT VISIT EST Diagnosis: DM W/O COMPLICATION TYPE II, 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] Diagnosis: HYPERTENSION[ICD9: 401.9] Diagnosis: HYPERLIPIDEMIA NEC/NOS[ICD9: 272.4] Neela GREGORIO [facility]issaMendez [facility] CPT-4: 10955 04/06/2013 ([id number]) OFFICE/OUTPATIENT VISIT EST Diagnosis: DM W/O COMPLICATION TYPE II[ICD9: 250.00] Diagnosis: HYPERLIPIDEMIA NEC/NOS[ICD9: 272.4] Diagnosis: HYPERTENSION[ICD9: 401.9] Neela Yenni NEELA JulissaMendez SERGE VASQUEZ [facility] CPT-4: 05650 12/01/2012 ([id number]) OFFICE/OUTPATIENT VISIT EST Diagnosis: DM W/O COMPLICATION TYPE II[ICD9: 250.00] Diagnosis: HYPERTENSION[ICD9: 401.9] Diagnosis: HYPERLIPIDEMIA NEC/NOS[ICD9: 272.4] Neela GREGORIO JulissaMendez YENNI [facility] CPT-4: 85757 08/04/2012 ([id number]) OFFICE/OUTPATIENT VISIT EST Diagnosis: URINARY FREQUENCY[ICD9: 788.41] Neela MURILLO JulissaMendez YENNI [facility] CPT-4: 80677 06/01/2012 OFFICE/OUTPATIENT VISIT EST Diagnosis: Agitation[ICD9: 307.9] Diagnosis: Frequent urination[ICD9: 788.41] Janet Cunningham SERGEKYHAO [facility] CPT-4: 82747 05/29/2012 OFFICE/OUTPATIENT VISIT EST Diagnosis: SINUSITIS, ACUTE[ICD9: 461.9] Diagnosis: OTALGIA[ICD9: 388.70] Neela MURILLO JulissaMendez YENNI [facility] CPT-4: 98358 05/25/2012 OFFICE/OUTPATIENT VISIT EST Diagnosis: DM W/O COMPLICATION TYPE II, 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] Diagnosis: HYPERTENSION[ICD9: 401.9] Diagnosis: HYPERLIPIDEMIA NEC/NOS[ICD9: 272.4] Neela GREGORIO JulissaMendez YENNI [facility] CPT-4: 48171 04/07/2012 OFFICE/OUTPATIENT VISIT EST Diagnosis: FINGER INJURY[ICD9: 959.5] Janet Cunningham [facility] CPT-4: 56941 12/16/2011 ([id number]) OFFICE/OUTPATIENT VISIT EST Diagnosis: DM 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 ORENDER DO [facility] CPT-4: 38666 12/03/2011 ([id number]) OFFICE/OUTPATIENT VISIT EST Diagnosis: DM W/O COMPLICATION TYPE II[ICD9: 250.00] Diagnosis: HYPERLIPIDEMIA NEC/NOS[ICD9: 272.4] Diagnosis: HYPERTENSION[ICD9: 401.9] Neela Cunningham ORE NDER DO [facility] CPT-4: 83157 08/29/2011 OFFICE/OUTPATIENT VISIT EST Diagnosis: DM W/O COMPLICATION TYPE II[ICD9: 250.00] Diagnosis: HYPERLIPIDEMIA NEC/NOS[ICD9: 272.4] Diagnosis: HYPERTENSION[ICD9: 401.9] Neela MURLILO SMendez ORE NDER DO [facility] CPT-4: 49710 05/30/2011 OFFICE/OUTPATIENT VISIT EST Diagnosis: SKIN SENSATION DISTURB[ICD9: 782.0] Neela Sergeushahao ANNJYOTIYesenia GREGORIO S. ORENDER DO [facility] CPT-4: 42054 01/29/2011 OFFICE/OUTPATIENT VISIT EST Diagnosis: SKIN SENSATION DISTURB[ICD9: 782.0] Neela Sergeushahao ANNJYOTIYesenia GREGORIO S. ORENDER DO [facility] CPT-4: 46548 01/14/2011 OFFICE/OUTPATIENT VISIT EST Neela MURILLO S. ORE NDER DO [facility] CPT- 4: 66610 01/01/2011 OFFICE/OUTPATIENT VISIT EST Neela Yenni ANNQUELINE S. ORE NDER DO [facility] CPT- 4: 20314 11/29/2010 ([id number]) OFFICE/OUTPATIENT VISIT EST Neela Sergechristina HORAN S. ORENDER DO [facility] CPT-4: 25895 08/28/2010 ([id number]) OFFICE/OUTPATIENT VISIT, EST Neela Sergechristina WILDE S. ORENDER DO [facility] CPT-4: 00040 06/05/2010 ([id number]) OFFICE/OUTPATIENT VISIT, EST Neela Sergechristina WILDE S. ORENDER DO [facility] CPT-4: 84546 02/05/2010 ([id number]) OFFICE/OUTPATIENT VISIT, EST Neela Sergechristina WILDE S. ORENDER DO [facility] CPT-4: 40460 10/09/2009 ([id number]) OFFICE/OUTPATIENT VISIT, EST [facility] CPT-4: 21999 08/22/2009 Plan of Care Planned Activity Notes [...] ICD-9 : 491.21 ICD-10 : J44.1 08/10/2019 Visit Diagnosis Plan: Sore on toe Discussion: Keep farhat an/dry Keflex Notify if worsens ICD-9 : 709.9 ICD-10 : L98.9 07/06/2019 Appointment: Neela Hyman WPtel: [address] [place], [place] [address] ACUTE ILLNESS 07/06/2019 Patient Education: Singteddyir- OptimizeRX Coupon [id number] [id number] [email or web address].[email or web address]./resources/getResource/61/[email or web address] Completed 07/06/2019 Visit Diagnosis Plan: Lymphoma involving lung Discussi on: Doing weekly lab and chemo ICD-9 : 202.82 ICD-10 : C85.99 05/10/2019 Visit Diagnosis Plan: Advanced chronic obstructive pul monary disease Discussion: Continue oxygen and pulmonary rehab Follow Up: 3 months ICD-9 : 496 ICD-10 : J44.9 05/10/2019 Appointment: Neela Hyman WPtel: [address] [place], [place] [phone] FOLLOW UP 05/10/2019 Appointment: Neela Hyman WPtel: [address] [place], [place] [phone] he called 04/14/19-- he was at physical [...] C85.99 03/29/2019 Appointment: Neela Hyman WPtel: [address] [place] [address] Hospital Follow Up 03/29/2019 Appointment: Neela Hyman WPtel: [address] [place], [place] [phone] [place] INJECTION 03/04/2019 Visit Diagnosis Plan: Chronic obstructiv e pulmonary disease with (acute) exacerbation Discussion: Increase SVNS with duoneb to QID Prednisone taper ICD-9 : 491.21 ICD-10 : J44.1 01/05/2019 Visit Diagnosis Plan: Other nonspecific abnormal findi ng of lung field Discussion: Referral to pulmonology--will likely need bronchoscopy--path results discussed ICD-9 : 786.6 ICD-10 : R91.8 01/05/2019 Appointment: Neela Hyman WPtel: [address] [place], [place] [phone] [place] FOLLOW UP 01/05/2019 Patient Education: prednisone- OptimizeRX Coupon [id number] https://www.UB..[employer]/UB./resources/getResource/61/[email or web address]-5x78-ot Completed 01/05/2019 Care Plan: Referral Order SNOMED-CT : 30 [id number] Pending 01/05/2019 Appointment: Neela Hyman WPtel: [address] [place], [place] [phone] [place] CANCELED 12/21/2018 Visit Diagnosis Plan: Solitary pulmonary nodule Discus esmer: CT guided needle biopsy of RUL lung mass ICD-9 : 793.11 ICD-10 : R91.1 12/09/2018 Visit Diagnosis Plan: Tinea corporis Discussion: Diflu can--hold simvastatin and fenofibrate while taking ICD-9 : 110.5 ICD-10 : B35.4 12/09/2018 Appointment: Neela Hyman WPtel: [address] [place] [address] US FOLLOW UP 12/09/2018 Appointment: Gely Harp [address] [address] [place] NO SHOW 12/01/2018 Visit Diagnosis Plan: [...] : J98.4 11/24/2018 Appointment: Neela Hyman WPtel: [address] [place] [address] FOLLOW UP 11/24/2018 Care Plan: PET IMAGE FULL BODY LOINC : 4 2711-2 Pending 11/24/2018 Appointment: Neela Hyman WPtel: [address] [place] [address] [place] Consult 09/21/2018 Visit Diagnosis Plan: Pneumonia, unspecified organism Discussion: Patient clinically improved. Recent CT scan from 09/07 showed unresolved right upper lobe pneumonia. Finished another 7 days of levaquin. Will repeat CBC early next week. Order sent with patient to get done at [facility]. FU CT recommended in 4 weeks. Patient states understanding. ICD-9 : 486 ICD-10 : J18.9 09/16/2018 Appointment: Amita Henderson [address] [id number] FOLLOW UP 09/16/2018 Visit Diagnosis Plan: Pneumonia, unspecified organism Discussion: Clinically patient feels and looks much better but need CT scan of chest due to ongoing round pneumonia in association with his known lymphoma ICD-9 : 486 ICD-10 : J18.9 09/03/2018 Appointment: Neela Hyman WPtel: [phone] [id number] FOLLOW UP 09/03/2018 Care Plan: CT THORAX [...] ICD-10 : I10 08/27/2018 Appointment: [facility]mita Henderson [facility] [facility] 08/27/2018 Visit Diagnosis Plan: Chronic [...] ICD-10 : R09.89 08/13/2018 Appointment: Amita Henderson [facility]0 Adreal [id number] [facility] FOLLOW UP 08/13/2018 Appointment: Amita Henderson [facility] Adreal [id number] CANCELED 08/13/2018 Patient Education: prednisone- OptimizeRX Coupon [phone] https://www.SwiftStack/sample[employer]./resources/getResource/61/[email or web address] Completed 08/13/2018 Visit Diagnosis Plan: Other specified [...] ICD-10 : J18.9 08/11/2018 Appointment: Amita Henderson [facility]0 Adreal [id number] ACUTE ILLNESS 08/11/2018 Care Plan: CHEST X-RAY 2VW FRONTAL&LATL LOINC : 33008-0 Pending 07/20/2018 Visit Diagnosis Plan: Dyspnea, unspecified Discussion: CXR- to be completed at the hospital. Will call with results and any adjustments in plan. Solumedrol 125 administered in clinic Prednisone 20 mg BID x 5 days- start tomorrow ICD-9 : 786.09 ICD-10 : R06.00 07/16/2018 Appointment: Amita Henderson [address] [place], [place] [address] ACUTE ILLNESS 07/16/2018 Patient Education: prednisone- OptimizeRX Coupon [phone] https://www.SwiftStack/samplemd/resources/getResource/61/58w2r1od-ra97-8yn5-b5 Completed 07/16/2018 Visit Diagnosis Plan: Acute bronchitis due to other sp ecified organisms Discussion: Kenalog 40 mg IM administered in clinic. Doxycycline called into [facility]. Take as directed. Continue nebulizer and Trelegy. Follow up if symptoms are not improving with treatment regimen. Patient states understanding of all instruction. ICD-9 : 466.0 ICD-10 : J20.8 07/13/2018 Appointment: Amita Henderson [address] [place], [place] [address] ACUTE ILLNESS 07/13/2018 Patient Education: doxycycline hyclate- OptimizeRX Cou saritha [phone] https://www.UB..[employer]/samplemd/resources/getResource/61/4b347i06-7a2b-2132-8v Completed 07/13/2018 Care Plan: [place] : [address]-9 Pending 07/13/2018 Care Plan: CBC Pending 07/13/2018 Care Plan: A1C HPLC LOINC : 55953-8 Pending 07/13/2018 Visit Diagnosis Plan: Mixed hyperlipidemia [...] : J44.9 06/03/2018 Appointment: Neela Hyman WPtel: [facility] [facility] FOLLOW UP 06/03/2018 Visit Diagnosis Plan: [...] ICD-10 : J44.9 05/04/2018 Appointment: Gely Harp [address] [place] [address] ACUTE ILLNESS 05/04/2018 Visit Diagnosis Plan: Localized edema Discussion: Cont inue lasix and potassium at every other day Recheck lab and fwup in 3mos Follow Up: 3 months ICD-9 : 782.3 ICD-10 : R60.0 03/03/2018 Appointment: Neela Hyman WPtel: [address] [place] [address] FOLLOW UP 03/03/2018 Patient Education: Patient Medication Summary Completed 03/03/2018 Visit Diagnosis Plan: Localized edema Discussion: Finch ge lasix and potassium to every other day Check Chem 7 in 2 weeks and fwup ICD-9 : 782.3 ICD-10 : R60.0 02/17/2018 Appointment: Neela Hyman WPtel: [address] [place] [address] FOLLOW UP 02/17/2018 Patient Education: Patient Medication [...] : E78.2 02/10/2018 Appointment: Neela Hyman WPtel: [address] [place], [place] [phone] [place] FOLLOW UP 02/10/2018 Patient Education: Patient [...] : I10 11/05/2017 Appointment: Neela Hyman WPtel: [address] [place], [place] [phone] [place] FOLLOW UP 11/05/2017 Patient Education: Patient Medication Summary Completed 11/05/2017 Patient Education: Patient Medication Summary Completed 11/03/2017 Care Plan: [place] : [address]-1 Pending 11/03/2017 Care Plan: LIPID PANEL LOINC : 90662-5 Pending 11/03/2017 Care Plan: CBC Pending 11/03/2017 Care Plan: A1C HPLC LOINC : 28874-0 Pending 11/03/2017 Visit Diagnosis Plan: Allergic urticaria [...] ICD-10 : L50.0 09/09/2017 Appointment: Gely Harp [address] [place], [place] [phone] ACUTE ILLNESS 09/09/2017 Patient Education: Patient Medication [...] ICD-10 : K29.00 08/07/2017 Appointment: Gely Harp [address] [place], [place] [address] Hospital Follow Up 08/07/2017 Patient Education: Patient Medication Summary Completed 08/07/2017 Visit Diagnosis Plan: Essential (primary) hypertension Discussion: Increase Cardizem CD to 360mg daily ICD-9 : 401.9 ICD-10 : I10 08/04/2017 Visit Diagnosis Plan: Type 2 diabetes mellitus without complications Discussion: Accuchecks daily Lab discussed Continue current meds ICD-9 : 250.00 ICD-10 : E11.9 08/04/2017 Appointment: Neela [facility]yman WPtel: [phone] [facility] [facility] 08/04/2017 Patient Education: Patient Medication Summary Completed 08/04/2017 Patient Education: Patient Medication Summary Completed 07/31/2017 Care Plan: [place] : [address]-7 Pending 07/31/2017 Care Plan: ASSAY THYROID STIM HORMONE Pen ding 07/31/2017 Care Plan: LIPID PANEL LOINC : 42706-7 Pending 07/31/2017 Care Plan: CBC Pending 07/31/2017 Care Plan: A1C HPLC LOINC : 04597-1 Pending 07/31/2017 Patient Education: Patient Medication Summary Completed 06/19/2017 Patient Education: Patient Medication Summary Completed 06/09/2017 Care Plan: CT SOFT TISSUE [place] : [address]48-3 Pending 06/09/2017 Visit Diagnosis Plan: Acute sialoadenitis [...] ICD-10 : B02.9 06/04/2017 Appointment: Gely Harp [address] [place] [address] ACUTE ILLNESS 06/04/2017 Patient Education: Patient Medication [...] ICD-10 : B02.9 06/02/2017 Appointment: Gely Harp [address] [place] [address] ACUTE ILLNESS 06/02/2017 Patient Education: Patient Medication [...] E78.2 05/05/2017 Appointment: Neela Hyman WPtel: [address] [facility] FOLLOW UP 05/05/2017 Patient Education: Patient Medication Summary Completed 05/05/2017 Patient Education: Patient Medication Summary Completed 05/01/2017 Care Plan: A1C HPLC [facility] : 37360-0 Pending 05/01/2017 Visit Diagnosis Plan: Chronic obstructiv [...] ICD-10 : H61.23 04/10/2017 Appointment: Gely Harp [address] [place], [place] [phone] ACUTE ILLNESS 04/10/2017 Patient Education: Patient Medication Summary Completed 04/10/2017 Appointment: Neela Hyman WPtel: [phone] [facility] US INJECTION 03/28/2017 Patient Education: Patient Medication [...] : I10 02/03/2017 Appointment: Neela Hyman WPtel: [facility] [facility] FOLLOW UP 02/03/2017 Patient Education: Patient Medication Summary Completed 02/03/2017 Patient Education: Patient Medication Summary Completed 01/30/2017 Care Plan: [place] : [address]-4 Pending 01/30/2017 Care Plan: LIPID PANEL LOINC : 89818-1 Pending 01/30/2017 Care Plan: CBC Pending 01/30/2017 Care Plan: A1C HPLC LOINC : 51369-9 Pending 01/30/2017 Care Plan: ASSAY OF PSA [...] J44.9 10/30/2016 Appointment: Neela Hyman WPtel: [phone] [facility] [facility] 10/29 lm ~sl 10/30 confirmed~sl FOLLOW UP 11/2016 Patient Education: Patient Medication Summary Completed 10/30/2016 Patient Education: Patient Medication Summary Completed 10/24/2016 Visit Diagnosis Plan: Acute bronchitis, unspecified Di scussion: Patient sounds and looks much improved Continue current regimen Keep appt with Dr Levi for Friday Follow up PRN ICD-9 : 466.0 ICD-10 : J20.9 08/30/2016 Appointment: Sammi Najera [facility] [facility] 08/29 rang and rang rang 08/30 [...] ICD-10 : J20.9 08/27/2016 Appointment: [facility]ammi Najera5 [facility] [facility] 08/27/2016 Patient Education: Patient Medication Summary Completed 08/27/2016 Care Plan: Referral Order SNOMED-CT : 30 [id number] Pending 08/27/2016 Visit Diagnosis Plan: Type 2 [...] : E78.2 07/02/2016 Appointment: Neela Hyman WPtel: [address] [place], [place] [address] 07/01 rang and rang`sl FOLLOW UP 7 Patient Education: Patient Medication Summary Completed 07/02/2016 Patient Education: Patient Medication Summary Completed 06/27/2016 Care Plan: LIPID PANEL LOINC : 01440-5 Pending 06/27/2016 Care Plan: [place] : [address]-5 Pending 06/27/2016 Care Plan: A1C HPLC LOINC : 25851-8 Pending 06/27/2016 Visit Diagnosis Plan: Acute bronchitis, [...] ICD-10 : J20.9 06/14/2016 Appointment: Sammi Najera [address] [place], [place] [phone] FOLLOW UP 06/14/2016 Patient Education: Patient Medication [...] ICD-10 : J20.9 06/13/2016 Appointment: Sammi Najera [address] [place], [place] [phone] ACUTE ILLNESS 06/13/2016 Patient Education: Patient Medication Summary Completed 06/13/2016 Care Plan: CHEST X-RAY 2VW FRONTAL&LATL LOINC : 33411-0 Pending 06/13/2016 Visit Plan: Increase metoprolol to 100mg po BID BP readings and BP check in 1month 05/14/2016 Appointment: Neela Hyman WPtel: [address] [place], [place] [address] 05/13 rang and rang`sl FOLLOW UP 6 Patient Education: Patient Medication Summary Completed 05/14/2016 Visit Plan: Increase metoprolol to 50mg BID BP check in 1 week f/u BP appt 2 weeks consider musculoskeletal if pain returns 04/29/2016 Appointment: Neela Hyman WPtel: [address] [place], [place] [phone] 04/25 confimred~sl FOLLOW UP 04/29/2016 Patient Education: Patient Medication Summary Completed 04/29/2016 Visit Plan: Stat CT scan of abdomen/pelv is to look for stone Hydrate and use tramadol prn Increase metoprolol to 25mg po BID Will see urology pending CT scan results 04/22/2016 Appointment: Neela Hyman WPtel: [address] [place], [place] [phone] 04/17 confirmed-sp ACUTE ILLNESS 04/22/2016 Patient Education: [...] flu shot 04/01/2016 Appointment: Neela Hyman WPtel: [address] [place], [place] [phone] [place] FOLLOW UP 04/01/2016 Patient Education: Patient Medication Summary Completed 04/01/2016 Patient Education: [facility] - Saving AutoInj - 18-64 - Dynamic Heber l ID Completed 04/01/2016 Patient Education: Patient Medication Summary Completed 03/28/2016 Care Plan: A1C HPLC LOINC : 72551-2 Pending 03/28/2016 Care Plan: [place] : [address]8875-8 Pending 03/28/2016 Visit Plan: Lab discussed Continue curre nt meds Accuchecks daily 11/30/2015 Appointment: Neela Hyman WPtel: [address] [place], [place] [address] [place] 11/28 confirmed~sl FOLLOW UP 11/30/2015 Patient Education: Patient Medication Summary Completed 11/30/2015 Appointment: Neela Hyman WPtel: [address] [place], [place] [phone] US RESCHEDULED 11/28/2015 Patient Education: Patient Medication Summary Completed 11/23/2015 Care Plan: [place] : 75[address]-1 Pending 11/23/2015 Care Plan: LIPID PANEL LOINC : 02431-3 Pending 11/23/2015 Care Plan: CBC Pending 11/23/2015 Care Plan: A1C HPLC LOINC : 70898-1 Pending 11/23/2015 Visit Plan: Lab discussed Acccarolyn munguia Continue current meds Cymbalta helping with feet and mood 08/29/2015 Appointment: Neela Hyman WPtel: [phone] [facility] [facility] FOLLOW UP 08/29/2015 Patient Education: Patient Medication Summary Completed 08/29/2015 Visit Plan: Check CXR Stop all steroids and steroid inhalers Use SVN with but change to duoneb Add singulair for allergy etiology Change fluoxetine to cymbalta 60mg daily Viagra samples given to try prn--warned of no nitrates 08/14/2015 Appointment: Neela Hyman WPtel: [phone] [facility] lm to reschedule ~sl 07/27 lm ~sl 08/09 busy 08/10 fer rosales-riley Annual Well Visit 08/14/2015 Patient Education: Patient Medication Summary Completed 08/14/2015 Care Plan: CHEST X-RAY 2VW FRONTAL&LATL LOINC : 40018-3 Ordered 08/14/2015 Visit Plan: Decadron 8mg given [...] improving as expected 08/09/2015 Appointment: Sammi Najera [address] [facility] [facility] Follow UP 08/09/2015 Patient Education: Patient Medication Summary Completed 08/09/2015 Patient Education: [facility] - Saving AutoInj - 18-64 - [...] it 05/22/2015 Appointment: Neela Hyman WPtel: [address] [place], [place] [phone] 05/17 confirmed~sl FOLLOW UP 05/22/2015 Patient Education: Patient Medication Summary Completed 05/22/2015 Patient Education: Patient Medication Summary Completed 05/15/2015 Visit Plan: Obtain EMGs done at [place] from when fractured left arm Lab discussed Accuchecks daily 02/13/2015 Appointment: Neela Hyman WPtel: [address] [place], [place] [phone] 02/10 confrimed FOLLOW UP 02/13/2015 Patient Education: Patient Medication Summary Completed 02/13/2015 Patient Education: Patient Medication Summary Completed 02/09/2015 Visit Plan: discussed lab add fenofibrat e 134mg po daily recheck fasting lab in 3 months, CBC, CMP, Lipids, hgb AIC 11/07/2014 Appointment: Neela Hyman WPtel: [address] [place], [place] [phone] 11/04 appt confirmed cn FOLLOW UP 015 Patient Education: Patient Medication Summary Completed 11/07/2014 Patient Education: Patient Medication Summary Completed 11/03/2014 Visit Plan: Continue loratadine 10mg richard ly Notify if symptoms return 10/04/2014 Appointment: Neela Hyman WPtel: [address] [place], [place] [phone] confirmed on 10/03 at 2:42pm FOLLOW UP 09/23 Patient Education: Patient Medication Summary Completed 10/04/2014 Appointment: Neela Hyman WPtel: [address] [place], [place] [phone] ACUTE ILLNESS 09/28/2014 Appointment: RodrigoJaylen Calisa Nguyễn WPtel: [address] [place] [address] FOLLOW UP 09/22/2014 Patient Education: Patient Medication Summary Completed 09/22/2014 Appointment: Loren Garza WPtel: [address] [place] [address] ACUTE ILLNESS 09/21/2014 Patient Education: Patient Medication Summary Completed 09/21/2014 Patient Education: [facility] - Saving AutoInj - 18+ - Dynamic Portal ID Completed 09/21/2014 Visit Plan: Lab discussed Continue daily accuchecks Continue current meds 06/28/2014 Appointment: Neela Hyman WPtel: [address] [place] [address] FOLLOW UP 06/28/2014 Patient Education: Patient Medication Summary Completed 06/28/2014 Patient Education: Patient Medication Summary Completed 06/23/2014 Appointment: Sarah Sunshine WPtel: [address] [place] [address] ACUTE ILLNESS 06/10/2014 Patient Education: Patient Medication Summary Completed 06/10/2014 Patient Education: [facility] - Saving AutoInj - 18+ - Dynamic Portal ID Completed 06/10/2014 Visit Plan: Lab discussed Continue daily accuchecks Continue current meds 03/29/2014 Appointment: Neela Hyman WPtel: [address] [place], [place] [id number] FOLLOW UP 03/29/2014 Patient Education: Patient Medication Summary Completed 03/29/2014 Patient Education: Patient Medication Summary Completed 03/23/2014 Visit Plan: Lab discussed Continue curre nt meds and accuchecks See surgery for removal of hand lesion 11/30/2013 Appointment: Neela Hyman WPtel: [address] [place], [place] [phone] 11/29 no answer FOLLOW UP 11/30/2013 Patient Education: Patient Medication Summary Completed 11/30/2013 Visit Plan: Lab discussed Continue curre nt meds 08/03/2013 Appointment: Neela Hyman WPtel: [address] [place] [address] FOLLOW UP 08/03/2013 Patient Education: Patient Medication Summary Completed 08/03/2013 Visit Plan: Lab Discussed Will continue current meds and pt will get back on diet/exercise Check lab in 4mos and fwup 04/06/2013 Appointment: Neela Hyman WPtel: [address] [place] [address] FOLLOW UP 04/06/2013 Patient Education: Patient Medication Summary Completed 04/06/2013 Visit Plan: Lab discussed Continue daily accuchecks 12/01/2012 Appointment: Neela Hyman WPtel: [address] [place] [address] 11/30 no answer FOLLOW UP 12/01/2012 Patient Education: Patient Medication Summary Completed 12/01/2012 Visit Plan: Continue current meds and da russell accuchecks Lab discussed 08/04/2012 Appointment: Neela Hyman WPtel: [address] [place] [address] FOLLOW UP 08/04/2012 Patient Education: Patient Medication Summary Completed 08/04/2012 Appointment: Neela Hyman WPtel: [address] [place], [place] [phone] [facility] 06/01/2012 Patient Education: Patient Medication Summary Completed 06/01/2012 Appointment: Janet Jean Baptiste WPtel: [address] [place], [place] [phone] FOLLOW UP 05/29/2012 Patient Education: Patient Medication Summary Completed 05/29/2012 Visit Plan: pt states Dr. Hyman told h is to increase his Prozac dose while she was talking to her at [facility]. Discussed that pt. should not increase or decrease dosage without Dr's knowledge. Pt. will seek hearing test here in town at the hearing aid place on [address]. Discussed that ear pain is likely caused by sinus pressure. Pt. will notify if no improvement. 05/25/2012 Appointment: Janet Jean Baptiste WPtel: [address] [place] [address] ACUTE ILLNESS 05/25/2012 Patient Education: Patient Medication Summary Completed 05/25/2012 Visit Plan: Continue current meds Contin ue daily accuchecks but alternate times Increase fish oil to 3gm daily 04/07/2012 Appointment: Neela Hyman WPtel: [address] [place] [address] 04/06 FOLLOW UP 04/07/2012 Patient Education: Patient Medication Summary Completed 04/07/2012 Appointment: Janet Jean Baptiste WPtel: [address] [place] [address] ACUTE ILLNESS 12/16/2011 Patient Education: Patient Medication Summary Completed 12/16/2011 Visit Plan: Increase 12/03/2011 Appointment: Neela Hyman WPtel: [address] [place] [address] FOLLOW UP 12/03/2011 Patient Education: Patient Medication Summary Completed 12/03/2011 Visit Plan: Continue current meds Contin ue accuchecks 08/29/2011 Appointment: Neela Hyman WPtel: [address] [place], [place] [phone] FOLLOW UP 08/29/2011 Patient Education: Patient Medication Summary Completed 08/29/2011 Visit Plan: Continue current meds except restart zocor 05/30/2011 Appointment: Neela Hyman WPtel: [address] [place], [place] [phone] [place] FOLLOW UP 05/30/2011 Patient Education: Patient Medication Summary Completed 05/30/2011 Visit Plan: Continue tennis elbow strap May go back to weight-lifing--light weigts every other day 01/29/2011 Appointment: Neela Hyman WPtel: [address] [place], [place] [phone] [place] FOLLOW UP 01/29/2011 Patient Education: Patient Medication Summary Completed 01/29/2011 Visit Plan: Continue tennis elbow strap and anti-inflammatories 01/14/2011 Appointment: Neela Hyman WPtel: [address] [place], [place] [phone] FOLLOW UP 01/14/2011 Appointment: Janet Jean Baptiste WPtel: [address] [place] [address] NEW PATIENT 01/14/2011 Patient Education: Patient Medication Summary Completed 01/14/2011 Appointment: Neela Hyman WPtel: [address] [place] [address] FOLLOW UP 01/08/2011 Appointment: Neela Hyman WPtel: [address] [place] [address] FOLLOW UP 01/01/2011 Appointment: Neela Hyman WPtel: [address] [place], [place] [phone] UA 01/01/2011 Patient Education: Patient Medication Summary [...] given. 11/29/2010 Appointment: Janet Jean Baptiste WPtel: [address] [place], [place] [phone] ACUTE ILLNESS 11/29/2010 Patient Education: Patient Medication Summary Completed 11/29/2010 Visit Plan: Cont current meds Check CMP, Lipids, HbA1C 08/28/2010 Appointment: Neela Hyman WPtel: [address] [place], [place] [phone] FOLLOW UP 08/28/2010 Patient Education: Patient Medication Summary Completed 08/28/2010 Visit Plan: Cont current meds and accuch ecks Add Zocor 40mg q HS Check Lipids and HbA1C in 3mos 06/05/2010 Appointment: Neela Hyman WPtel: [address] [place], [place] [phone] [place] FOLLOW UP 06/05/2010 Patient Education: Patient Medication Summary Completed 06/05/2010 Visit Plan: Check Lipids and HbA1C 02/05/2010 Appointment: Neela Hyman WPtel: [address] [place], [place] [phone] [place] FOLLOW UP 02/05/2010 Patient Education: Patient Medication Summary Completed 02/05/2010 Visit Plan: HbA1C in 3mos. Continue Accu checks BID alternating times. Check HbA1C, CMP, Lipids 10/09/2009 Appointment: Neela Hyman WPtel: [address] [place], [place] [phone] FOLLOW UP 10/09/2009 Patient Education: Patient Medication Summary Completed 10/09/2009 Visit Plan: Saline nasal flushes prn. Ty lenol/Motrin prn headache. Notify if persists/symptoms worsening. 08/22/2009 Appointment: Neela Hyman WPtel: [address] [place], [place] [phone] ACUTE ILLNESS 08/22/2009 Patient Education: Patient Medication Summary Completed 08/22/2009 Referral: Aubrey Rand WPtel: [address] [place], [place] [id number] [place] Office will verfy his insurance then they will contact patient Completed Referral: Shahbaz Brennna WPtel: [address] [facility] [address] [id number] [place] Referral Completed Referral: Ion Levi [address] [place] [address] C&D [id number] [place] Referral Appointment Requested Referral: Ion Levi [address] [place] [address] C&D [id number] [place] Referral Appointment Requested Instructions Comment . [...] with it . Obtain EMGs done at [place] from when fractured left arm Lab discussed [...] while she was talking to her at [facility]. Discussed that pt. should not [...] found Advance Directives Filename Date 12 Living Will06/06/2011
--- OUTSIDE RECORDS SUMMARY | 2019-12-09 09:12 | XMS REPORT | CCD ---
Author Author Michael Hyman D.O. Organization [facility] Address [address] [place] [address] Phone Care Team Providers Care Case Checker Name Role Phone Neela Hyman D.O., PP Unavailable CCM Unavailable Summary Purpose Interface Exchange Insurance Providers Payer name Policy type / Coverage type Covered democrat ID Effective Begin Date Effective End Date ABS FOR [employer] [id number] Unknown Family History Family History data not found Social History Social History Element Codes Description Effective Dates Marital status Unknown 05/30/[address]: 3336287 Former smoker quit 25 years ago 01/01/2011 [...] chloride ER 20 mEq tablet,extended release RxNorm: 404350 1 Tablet(s) Oral two times a day 07/22/2019 10/19/2019 Active metformin 500 mg tablet RxNorm: 281989 2 Tablet(s) Oral two afshan es a day 07/13/2019 09/11/2019 Active Singulair 10 mg tablet RxNorm: 194525 TAKE ONE TABLET BY MOUTH EVERY EVENING 07/06/2019 01/02/2020 Active Reselected prescribe r from PEG [facility]HER to [facility] Keflex 500 mg capsule RxNorm: 001870 1 Capsule(s) Oral three ti mes a day 07/06/2019 07/13/2019 Inactive Singulair 10 mg tablet RxNorm: 379553 TAKE ONE TABLET BY MOUTH EVERY EVENING 06/22/2019 07/05/2019 Inactive Reselected prescribe r from PEG MAHER to [facility] Zocor 40 mg tablet RxNorm: 685046 TAKE ONE TABLET BY M OUTH EVERY NIGHT AT BEDTIME 06/21/2019 11/17/2019 Active MagOx 400 mg (241.3 mg magnesium) tablet RxNorm: 702557 1 Table t(s) Oral QD 06/21/2019 08/20/2019 Active diltiazem ER 360 mg capsule,24 hr,extended release RxNorm: 8 02346 TAKE ONE CAPSULE BY MOUTH AT BEDTIME -REPLACES 300MG 05/17/2019 11/12/2019 Active MagOx 400 mg (241.3 mg magnesium) tablet RxNorm: 612312 1 Table t(s) Oral QD 04/26/2019 06/20/2019 Inactive Lasix 40 mg tablet RxNorm: 698695 40 MG PO DAILY 04/12/2019 No Stop Da te Active Benicar 40 mg tablet RxNorm: 044756 1 Tablet(s) Oral QD 03/29/2019 Active potassium chloride ER 20 mEq tablet,extended release RxNorm: 839928 1 Tablet(s) Oral two times a day 03/29/2019 06/27/2019 Inactive potassium chloride ER 20 mEq tablet,extended release RxNorm: 311169 1 Tablet(s) Oral QD 03/29/2019 03/28/2019 Inactive Benicar 40 mg tablet RxNorm: 724559 1 Tablet(s) Oral QD 03/29/2019 Inactive MagOx 400 mg (241.3 mg magnesium) tablet RxNorm: 114243 1 Table t(s) Oral QD 03/29/2019 04/25/2019 Inactive metformin 500 mg tablet RxNorm: 672587 2 Tablet(s) Oral two afshan es a day 03/29/2019 07/12/2019 Inactive fenofibrate micronized 134 mg capsule RxNorm: 785623 TA KE ONE CAPSULE BY MOUTH EVERY DAY 03/05/2019 08/31/2019 Active duloxetine 60 mg capsule,delayed release RxNorm: 855862 1 Capsu le(s) PO QD 01/28/2019 07/26/2019 Inactive Trelegy Ellipta 100 mcg-62.5 mcg-25 mcg powder for inhalatio n RxNorm: 7124092 1 Puff(s) INH QD 01/06/2019 12/31/2019 Active 90 day supply prednisone 20 mg tablet RxNorm: 967340 1 Tablet(s) PO T ID for 3 days then 1 po BID for 3 days then 1 po daily for 3 days 01/05/2019 03/28/2019 Inacti ve metformin ER 1,000 mg tablet,extended release 24hr RxNorm: 1 329571 TAKE TWO TABLETS (1000MG) BY MOUTH TWO TIMES A DAY 12/22/2018 07/13/2019 Inacti ve Diflucan 100 mg tablet RxNorm: 673927 1 Tablet(s) PO QD 12/09/2018 Inactive prednisone 20 mg tablet RxNorm: 393377 1 Tablet(s) PO B ID for 4 days then 1 po daily for 4 days 11/24/2018 01/04/2019 Inactive albuterol sulfate 2.5 mg/3 mL (0.083 %) solution for n ebulization RxNorm: 580063 3 Milliliter(s) INH ONE VIAL VIA NEBULIZER EVERY 4 HOURS 07/21/2019 Inactive [AttnRPh: Saving apply/adjudicate RxGRP: SG20 RxBIN:[id number] RxPCN: ID#:[id number]] Trelegy Ellipta 100 mcg-62.5 mcg-25 mcg powder for inhalatio n RxNorm: 2622981 1 Puff(s) INH QD 10/27/2018 01/06/2019 Inactive 90 day supply metoprolol succinate ER 100 mg tablet,extended release 24 hr RxNorm: 062473 TAKE ONE TABLET BY MOUTH TWICE A DAY 10/13/2018 07/09/2019 Inactive diltiazem ER 360 mg capsule,24 hr,extended release RxNorm: 8 36073 TAKE ONE CAPSULE BY MOUTH AT BEDTIME -REPLACES 300MG 10/13/2018 04/10/2019 Inactive Trelegy Ellipta 100 mcg-62.5 mcg-25 mcg powder for inhalatio n RxNorm: 9108763 INHALE ONE PUFF ONCE DAILY 09/07/2018 10/27/2018 Inactive Levaquin 750 mg tablet RxNorm: 256269 1 Tablet(s) PO QD 09/07/2018 Inactive Levaquin 750 mg tablet RxNorm: 781202 1 Tablet(s) PO QD 09/07/2018 Inactive prednisone 20 mg tablet RxNorm: 604863 2 Tablet(s) PO QAM 08/13/2018 08/19/2018 Inactive Levaquin 500 mg tablet RxNorm: 193323 1 Tablet(s) PO QD 08/11/2018 Inactive fenofibrate micronized 134 mg capsule RxNorm: 058142 TA KE ONE CAPSULE BY MOUTH EVERY DAY 08/10/2018 02/05/2019 Inactive prednisone 20 mg tablet RxNorm: 044567 1 Tablet(s) PO BID 07/16/2018 07/20/2018 Inactive doxycycline hyclate 100 mg capsule RxNorm: 6053680 1 Capsule(s) PO BID 07/13/2018 07/22/2018 Inactive duloxetine 60 mg capsule,delayed release RxNorm: 966923 TAKE ONE CAPSULE BY MOUTH ONCE A DAY 07/08/2018 01/28/2019 Inactive Lasix 40 mg tablet RxNorm: 037882 1 TABLET(S) PO QAM 06/08/201809/05 Inactive potassium chloride ER 20 mEq tablet,extended release(p art/cryst) RxNorm: 4708940 1 TABLET(S) PO QD 06/08/2018 09/05/2018 Inactive metformin ER 1,000 mg tablet,extended release 24hr RxNorm: 1 747977 TAKE TWO TABLETS (1000MG) BY MOUTH TWO TIMES A DAY 06/01/2018 11/27/2018 Inacti ve Benicar HCT 40 mg-25 mg tablet RxNorm: 581610 TAKE ONE TABLET BY MOUTH ONCE DAILY 05/11/2018 03/28/2019 Inactive Zocor 40 mg tablet RxNorm: 933074 TAKE ONE TABLET BY M OUTH EVERY NIGHT AT BEDTIME 05/11/2018 06/20/2019 Inactive Trelegy Ellipta 100 mcg-62.5 mcg-25 mcg powder for inhalatio n RxNorm: 5633181 1 PUFF(S) INH QD 04/06/2018 07/04/2018 Inactive diltiazem ER 360 mg capsule,24 hr,extended release RxNorm: 8 14048 1 Capsule(s) PO QHS replaces 300mg dose 03/30/2018 09/25/2018 Inactive Trelegy Ellipta 100 mcg-62.5 mcg-25 mcg powder for inhalatio n RxNorm: 9080985 1 Puff(s) INH QD 02/24/2018 02/23/2018 Inactive Trelegy Ellipta 100 mcg-62.5 mcg-25 mcg powder for inhalatio n RxNorm: 4131684 1 Puff(s) INH QD 02/24/2018 02/23/2018 Inactive Trelegy Ellipta 100 mcg-62.5 mcg-25 mcg powder for inhalatio n RxNorm: 9549278 1 Puff(s) INH QD 02/24/2018 04/05/2018 Inactive Lasix 40 mg tablet RxNorm: 938583 1 Tablet(s) PO QAM 02/10/201803/11 Inactive potassium chloride ER 20 mEq tablet,extended release(p art/cryst) RxNorm: 5676930 1 Tablet(s) PO QD 02/10/2018 03/11/2018 Inactive fenofibrate micronized 134 mg capsule RxNorm: 460634 1 Capsule( s) PO QD 01/30/2018 07/28/2018 Inactive metoprolol succinate ER 100 mg tablet,extended release 24 hr RxNorm: 118451 TAKE ONE TABLET BY MOUTH TWICE A DAY 12/30/2017 09/25/2018 Inactive metformin ER 1,000 mg tablet,extended release 24hr RxNorm: 1 745167 1 Tablet(s) PO BID 11/17/2017 05/15/2018 Inactive [SAVINGS FOR NON -COVERED DRUGS -- BIN:220614, PCN: ASPROD1, Group: XXXXX, ID# [id number], Questions: . THIS IS NOT INSURANCE.] Benicar HCT 40 mg-25 mg tablet RxNorm: 990813 1 Tablet(s) PO QD 05/10/2018 Inactive [SAVINGS FOR NON-COVERED JESU GS -- BIN:682389, PCN: ASPROD1, Group: XXXXX, ID# [id number], Questions: . THIS IS NOT INSURANCE.] Bactroban 2 % topical cream RxNorm: 775269 Application TOP BID 10/2409/02/2018 Inactive clindamycin HCl 300 mg capsule RxNorm: 631283 2 Capsule(s) PO TID 0 11/05/2017 11/18/2017 Inactive duloxetine 60 mg capsule,delayed release RxNorm: 771076 Capsule(s) TAKE ONE CAPSULE BY MOUTH ONCE DAILY 09/24/2017 09/23/2017 Inactive triamcinolone acetonide 0.1 % topical ointment RxNorm: 3520577 1 TOP BID 09/09/2017 11/04/2017 Inactive Bactrim DS 800 mg-160 mg tablet RxNorm: 014967 1 Tablet(s) PO BID 0 08/07/2017 08/13/2017 Inactive metronidazole 500 mg tablet RxNorm: 788399 1 Tablet(s) PO BID 08/0708/13/2017 Inactive diltiazem ER 360 mg capsule,24 hr,extended release RxNorm: 8 69695 1 Capsule(s) PO QHS replaces 300mg dose 08/04/2017 01/30/2018 Inactive fenofibrate micronized 134 mg capsule RxNorm: 241849 1 Capsule( s) PO QD 07/21/2017 01/30/2018 Inactive Zocor 40 mg tablet RxNorm: 115487 1 Tablet(s) PO QHS 07/21/201705/10 Inactive GB duloxetine 60 mg capsule,delayed release RxNorm: 733253 Capsule(s) TAKE ONE CAPSULE BY MOUTH ONCE DAILY 06/24/2017 09/24/2017 Inactive Cleocin HCl 300 mg capsule RxNorm: 728420 2 Capsule(s) PO BID 06/0206/08/2017 Inactive acyclovir 800 mg tablet RxNorm: 915544 1 Tablet(s) PO 5x day 201706/08/2017 Inactive diltiazem ER 300 mg capsule,24 hr,extended release RxNorm: 8 18667 1 Capsule(s) PO QHS replaces 240mg dose 05/05/2017 08/03/2017 Inactive ipratropium-albuterol 0.5 mg-3 mg(2.5 mg base)/3 mL ne bulization soln RxNorm: 5555880 1 Unit Dose INH Q4H as needed 05/05/2017 01/04/2019 Inactive metformin ER 1,000 mg tablet,extended release 24hr RxNorm: 1 339400 1 Tablet(s) PO BID 04/28/2017 11/17/2017 Inactive [SAVINGS FOR NON -COVERED DRUGS -- BIN:489445, PCN: ASPROD1, Group: XXXXX, ID# XXXXXXX, Questions: . THIS IS NOT INSURANCE.] diltiazem ER (XR/XT) 240 mg capsule,extended release 2 4 hr, controlled RxNorm: 677081 TAKE ONE CAPSULE BY MOUTH EVERY DAY 04/15/2017 05/04/2017 Inact avani prednisone 20 mg tablet RxNorm: 500371 1 Tablet(s) PO QD 04/10/2017 1 06/14/2016 Inactive Breo Ellipta 200 mcg-25 mcg/dose powder for inhalation RxNor m: 3313336 1 Puff(s) INH QD 04/10/2017 02/09/2018 Inactive Breo Ellipta 200 mcg-25 mcg/dose powder for inhalation RxNor m: 2602166 1 Puff(s) INH QD 04/10/2017 04/09/2017 Inactive Levaquin 500 mg tablet RxNorm: 996423 1 Tablet(s) PO QD 04/10/2017 Inactive metoprolol succinate ER 100 mg tablet,extended release 24 hr RxNorm: 186491 TAKE ONE TABLET BY MOUTH TWICE A DAY 03/24/2017 12/18/2017 Inactive fenofibrate micronized 134 mg capsule RxNorm: 886153 1 Capsule( s) PO QD 01/16/2017 07/21/2017 Inactive Benicar HCT 40 mg-25 mg tablet RxNorm: 053309 1 Tablet(s) PO QD 11/17/2017 Inactive [SAVINGS FOR NON-COVERED JESU GS -- BIN:678913, PCN: ASPROD1, Group: XXXXX, ID# [id number], Questions: . THIS IS NOT INSURANCE.] metoprolol succinate ER 100 mg tablet,extended release 24 hr RxNorm: 209524 1 Tablet(s) PO BID 10/16/2016 03/23/2017 Inactive diltiazem ER (XR/XT) 240 mg capsule,extended release 2 4 hr, controlled RxNorm: 061139 1 Capsule(s) PO QD 10/16/2016 04/13/2017 Inactive [SAVINGS FOR NON- COVERED DRUGS -- BIN:693768, PCN: ASPROD1, Group: XXXXX, ID# XXXXXXX, Questions: . THIS IS NOT INSURANCE.] metformin ER 1,000 mg tablet,extended release 24hr RxNorm: 8 76532 1 Tablet(s) PO BID 10/16/2016 04/28/2017 Inactive [SAVINGS FOR NON -COVERED DRUGS -- BIN:381202, PCN: ASPROD1, Group: XXXXX, ID# XXXXXXX, Questions: . THIS IS NOT INSURANCE.] Zocor 40 mg tablet RxNorm: 173057 1 Tablet(s) PO QHS 10/16/201607/21 Inactive GB Singulair 10 mg tablet RxNorm: 902993 Tablet(s) 1 TABLET(S) PO QHS 08/27/2016 09/02/2018 Inactive prednisone 20 mg tablet RxNorm: 574363 1 Tablet(s) PO QD 08/27/2016 0 08/31/2016 Inactive ipratropium-albuterol 0.5 mg-3 mg(2.5 mg base)/3 mL ne bulization soln RxNorm: 7828213 1 Unit Dose INH Q4H as needed 08/27/2016 05/04/2017 Inactive metoprolol succinate ER 100 mg tablet,extended release 24 hr RxNorm: 197557 TAKE ONE TABLET BY MOUTH TWICE A DAY 08/05/2016 10/16/2016 Inactive duloxetine 60 mg capsule,delayed release RxNorm: 871472 TAKE ONE CAPSULE BY MOUTH ONCE DAILY 08/05/2016 06/24/2017 Inactive prednisone 20 mg tablet RxNorm: 747333 1 Tablet(s) PO QD 06/14/2016 0 06/18/2016 Inactive ipratropium-albuterol 0.5 mg-3 mg(2.5 mg base)/3 mL ne bulization soln RxNorm: 6741073 1 Unit Dose INH Q4H as needed 06/13/2016 08/26/2016 Inactive Levaquin 500 mg tablet RxNorm: 690755 1 Tablet(s) PO QD 06/13/2016 Inactive metoprolol succinate ER 100 mg tablet,extended release 24 hr RxNorm: 803820 1 Tablet(s) PO BID replaces 50mg dose 05/14/2016 07/12/2016 Inactive metoprolol succinate ER 50 mg tablet,extended release 24 hr RxNorm: 158049 1 Tablet(s) PO BID 04/29/2016 05/13/2016 Inactive prednisone 20 mg tablet RxNorm: 288587 1 Tablet(s) PO BID 04/22/2016 04/21/2016 Inactive prednisone 20 mg tablet RxNorm: 239819 1 Tablet(s) PO BID 04/22/2016 04/28/2016 Inactive Singulair 10 mg tablet RxNorm: 348076 Tablet(s) 1 TABLET(S) PO QHS 04/01/2016 08/26/2016 Inactive metoprolol succinate ER 25 mg tablet,extended release 24 hr RxNorm: 072131 1 Tablet(s) PO QHS for blood pressure 04/01/2016 05/13/2016 Inactive fenofibrate micronized 134 mg capsule RxNorm: 639011 TA KE ONE CAPSULE BY MOUTH DAILY 01/25/2016 01/16/2017 Inactive duloxetine 60 mg capsule,delayed release RxNorm: 928382 TAKE ONE CAPSULE BY MOUTH ONCE DAILY 01/25/2016 08/04/2016 Inactive Zocor 40 mg tablet RxNorm: 372043 TAKE ONE TABLET BY MOUTH AT B EDTIME 11/13/2015 10/16/2016 Inactive GB metformin ER 1,000 mg tablet,extended release 24hr RxNorm: 8 70540 1 Tablet(s) PO BID 10/26/2015 10/16/2016 Inactive [SAVINGS FOR NON -COVERED DRUGS -- BIN:035873, PCN: ASPROD1, Group: XXXXX, ID# [id number], Questions: . THIS IS NOT INSURANCE.] Benicar HCT 40 mg-25 mg tablet RxNorm: 358295 1 Tablet(s) PO QD 06/201511/11/2016 Inactive [SAVINGS FOR NON-COVERED JESU GS -- BIN:261039, PCN: ASPROD1, Group: XXXXX, ID# [id number], Questions: . THIS IS NOT INSURANCE.] diltiazem ER (XR/XT) 240 mg capsule,extended release,control led RxNorm: 873701 1 Capsule(s) PO QD 10/26/2015 10/15/2016 Inactive [SAVINGS FOR NO N-COVERED DRUGS -- BIN:402184, PCN: ASPROD1, Group: XXXXX, ID# XXXXXXX, Questions: . THIS IS NOT INSURANCE.] Singulair 10 mg tablet RxNorm: 123154 1 TABLET(S) PO QHS 09/18/2015 1 05/31/2015 Inactive Viagra 100 mg tablet RxNorm: 380921 1 Tablet(s) PO as needed 201511/23/2018 Inactive Singulair 10 mg tablet RxNorm: 772841 1 Tablet(s) PO QHS 08/16/2015 0 08/15/2015 Inactive Singulair 10 mg tablet RxNorm: 441828 1 Tablet(s) PO QHS 08/16/2015 0 09/14/2015 Inactive duloxetine 60 mg capsule,delayed release RxNorm: 005014 1 Capsule(s) PO QD replaces fluoxetine 08/14/2015 01/24/2016 Inactive ipratropium-albuterol 0.5 mg-3 mg(2.5 mg base)/3 mL ne bulization soln RxNorm: 2894568 1 Unit Dose INH Q4H as needed 08/14/2015 06/12/2016 Inactive prednisone 20 mg tablet RxNorm: 001664 Take 3 tabs PO o nce daily x 3 days, then 2 tabs PO once daily x 3 days and then 1 tab PO once daily x 3 days 08/09/2015 08/13/2015 Inactive Symbicort 160 mcg-4.5 mcg/actuation HFA aerosol inhaler RxNo rm: 3854645 2 Puff(s) INH BID 08/09/2015 08/13/2015 Inactive Zocor 40 mg tablet RxNorm: 353410 1 Tablet(s) PO QHS 05/23/201511/11 Inactive [AttnRPh: Saving apply/adjudicate RxGRP: SG20 RxBIN:[id number] RxPCN:HT ID#:[id number]] Benicar HCT 40 mg-25 mg tablet RxNorm: 961148 1 Tablet(s) PO QD 10/26/2015 Inactive [SAVINGS FOR NON-COVERED JESU GS -- BIN:671636, PCN: ASPROD1, Group: XXXXX, ID# [id number], Questions: . THIS IS NOT INSURANCE.] diltiazem ER (XR/XT) 240 mg capsule,extended release,control led RxNorm: 468591 1 Capsule(s) PO QD 04/24/2015 10/20/2015 Inactive [SAVINGS FOR NO N-COVERED DRUGS -- BIN:189007, PCN: ASPROD1, Group: XXXXX, ID# XXXXXXX, Questions: . THIS IS NOT INSURANCE.] fluoxetine 40 mg capsule RxNorm: 991958 1 Capsule(s) PO QD 04/24/20 15 08/13/2015 Inactive [SAVINGS FOR NON-COVERED JESU GS -- BIN:336958, PCN: ASPROD1, Group: XXXXX, ID# XXXXXXX, Questions: . THIS IS NOT INSURANCE.] Zocor 40 mg tablet RxNorm: 560863 TABLET(S) 1 TABLET(S) PO QHS 01/2505/23/2015 Inactive [AttnRPh: Saving apply/adjud icate RxGRP:SG20 RxBIN:[id number] RxPCN: ID#:[id number]] metformin ER 1,000 mg tablet,extended release 24hr RxNorm: 8 10953 1 TABLET(S) PO BID 01/29/2015 10/26/2015 Inactive [SAVINGS FOR NON -COVERED DRUGS -- BIN:605521, PCN: ASPROD1, Group: XXXXX, ID# XXXXXXX, Questions: . THIS IS NOT INSURANCE.] fenofibrate micronized 134 mg capsule RxNorm: 753057 1 CAPSULE( S) PO QD 01/23/2015 01/17/2016 Inactive fenofibrate micronized 134 mg capsule RxNorm: 938746 1 Capsule( s) PO QD 11/07/2014 01/22/2015 Inactive diltiazem ER (XR/XT) 240 mg capsule,extended release,control led RxNorm: 256142 1 Capsule(s) PO QD 10/24/2014 04/24/2015 Inactive [SAVINGS FOR NO N-COVERED DRUGS -- BIN:415464, PCN: ASPROD1, Group: XXXXX, ID# XXXXXXX, Questions: . THIS IS NOT INSURANCE.] Benicar HCT 40 mg-25 mg tablet RxNorm: 142850 1 Tablet(s) PO QD 05/201404/24/2015 Inactive [SAVINGS FOR NON-COVERED JESU GS -- BIN:611261, PCN: ASPROD1, Group: XXXXX, ID# XXXXXXX, Questions: . THIS IS NOT INSURANCE.] fluoxetine 40 mg capsule RxNorm: 817474 1 Capsule(s) PO QD 10/25/1904/24/2015 Inactive [SAVINGS FOR NON-COVERED JESU GS -- BIN:918817, PCN: ASPROD1, Group: XXXXX, ID# XXXXXXX, Questions: . THIS IS NOT INSURANCE.] azithromycin 500 mg tablet RxNorm: 361108 1 Tablet(s) PO QD 015 09/27/2014 Inactive [SAVINGS FOR NON-COVERED JESU GS -- BIN:506932, PCN: ASPROD1, Group: XXXXX, ID# XXXXXXX, Questions: . THIS IS NOT INSURANCE.] albuterol sulfate 2.5 mg/3 mL (0.083 %) solution for n ebulization RxNorm: 516593 3 Milliliter(s) INH ONE VIAL VIA NEBULIZER EVERY 4 HOURS 015 11/19/2014 Inactive [AttnRPh: Saving apply/adjudicate RxGRP: SG20 RxBIN:[id number] RxPCN: ID#:[id number]] Zocor 40 mg tablet RxNorm: 344118 TABLET(S) 1 TABLET(S ) PO QHS 1 TABLET(S) PO QHS 09/04/2014 02/21/2015 Inactive [AttnRPh: Saving apply/adjudicate RxGRP:SG20 RxBIN:[id number] RxPCN: ID#:[id number]] metformin ER 1,000 mg tablet,extended release 24hr RxNorm: 8 81036 1 Tablet(s) PO BID 08/04/2014 01/28/2015 Inactive [SAVINGS FOR NON -COVERED DRUGS -- BIN:948707, PCN: ASPROD1, Group: XXXXX, ID# XXXXXXX, Questions: . THIS IS NOT INSURANCE.] Bromfed DM 2 mg-30 mg-10 mg/5 mL syrup RxNorm: 6886688 1 -2 Teaspoon(s) PO Q4H as needed for cough 06/10/2014 06/19/2014 Inactive [SAVINGS FOR UN INSURED PATIENTS -- BIN:909653, PCN: ASPROD1, Group: AME08, ID# [id number], Process claim through [employer], for questions: . THIS IS NOT INSURANCE.] Augmentin 875 mg-125 mg tablet RxNorm: 960967 1 Tablet(s) PO Q12H 0 06/10/2014 06/19/2014 Inactive [AttnRPh: Saving apply/adjud icate RxGRP:SG20 RxBIN:[id number] RxPCN: ID#:[id number]] Zocor 40 mg tablet RxNorm: 703858 Tablet(s) 1 TABLET(S ) PO QHS 1 TABLET(S) PO QHS 05/25/2014 08/22/2014 Inactive [AttnRPh: Saving apply/adjudicate RxGRP:SG20 RxBIN:[id number] RxPCN:HT ID#:[id number]] fluoxetine 40 mg capsule RxNorm: 829650 1 Capsule(s) PO QD 04/29/20 14 10/24/2014 Inactive [AttnRPh: Saving apply/adjud icate RxGRP:SG20 RxBIN:[id number] RxPCN:HT ID#:[id number]] diltiazem ER (XR/XT) 240 mg capsule,extended release,control led RxNorm: 195915 1 Capsule(s) PO QD 04/29/2014 10/24/2014 Inactive [AttnRPh: Leonelin g apply/adjudicate RxGRP:SG20 RxBIN:[id number] RxPCN:HT ID#:[id number]] Benicar HCT 40 mg-25 mg tablet RxNorm: 139334 1 Tablet(s) PO QD 09/201310/24/2014 Inactive [AttnRPh: Saving apply/adjud icate RxGRP:SG20 RxBIN:[id number] RxPCN:HT ID#:[id number]] Zocor 40 mg tablet RxNorm: 180852 1 TABLET(S) PO QHS 1 TABLET(S ) PO QHS 03/07/2014 05/25/2014 Inactive [AttnRPh: Saving chelsie ly/adjudicate RxGRP:SG20 RxBIN:[id number] RxPCN:HT ID#:[id number]] Zocor 40 mg tablet RxNorm: 643716 1 Tablet(s) PO QHS 1 TABLET(S ) PO QHS 12/06/2013 03/05/2014 Inactive [AttnRPh: Saving chelsie ly/adjudicate RxGRP:SG20 RxBIN:[id number] RxPCN:HT ID#:[id number]] diltiazem ER (XR/XT) 240 mg capsule,extended release,control led RxNorm: 193451 1 Capsule(s) PO QD 10/25/2013 04/22/2014 Inactive [AttnRPh: Leonelin g apply/adjudicate RxGRP:SG20 RxBIN:[id number] RxPCN:HT ID#:[id number]] fluoxetine 40 mg capsule RxNorm: 649424 1 Capsule(s) PO QD 10/26/19 14 04/22/2014 Inactive [AttnRPh: Saving apply/adjud icate RxGRP:SG20 RxBIN:[id number] RxPCN:HT ID#:[id number]] Zocor 40 mg tablet RxNorm: 533715 1 Tablet(s) PO QHS 1 TABLET(S ) PO QHS 09/13/2013 12/06/2013 Inactive metformin ER 1,000 mg tablet,extended release 24hr RxNorm: 8 18231 Tablet(s) PO TAKE 1 TABLET BY MOUTH TWICE DAILY (REPLACES 500MG DOSE) 07/26/201303/2015 Inactive diltiazem ER (XR/XT) 240 mg capsule,extended release,control led RxNorm: 776398 1 Capsule(s) PO QD 05/03/2013 10/25/2013 Inactive fluoxetine 40 mg capsule RxNorm: 916031 1 Capsule(s) PO QD 05/03/20 13 10/25/2013 Inactive Benicar HCT 40 mg-25 mg tablet RxNorm: 058503 1 Tablet(s) PO QD 01/201304/29/2014 Inactive Zocor 40 mg tablet RxNorm: 345852 1 Tablet(s) PO QHS 12/10/201209/13 Inactive fluoxetine 40 mg capsule RxNorm: 277314 1 Capsule(s) PO QD 11/10/19 13 05/03/2013 Inactive diltiazem ER (XR/XT) 240 mg capsule,extended release,control led RxNorm: 899614 1 Capsule(s) PO QD 11/09/2012 05/03/2013 Inactive Benicar HCT 40 mg-25 mg tablet RxNorm: 504928 1 Tablet(s) PO QD 05/03/2013 Inactive metformin ER 1,000 mg tablet,extended release 24hr RxNorm: 8 03588 Tablet(s) PO TAKE 1 TABLET BY MOUTH TWICE DAILY (REPLACES 500MG DOSE) 08/05/201206/2013 Inactive Zocor 40 mg tablet RxNorm: 572068 1 Tablet(s) PO QHS 06/15/201212/09 Inactive fluoxetine 40 mg capsule RxNorm: 983459 1 Capsule(s) PO QD 05/15/20 12 11/08/2012 Inactive Neurontin 600 mg Tab RxNorm: 141414 1 Tablet(s) PO QHS 12/03/2011 Inactive metformin ER 1,000 mg tablet,extended release 24hr RxNorm: 8 60020 1 Tablet(s) PO BID replaces 500mg dose 12/03/2011 07/26/2013 Inactive Zocor 40 mg tablet RxNorm: 502903 1 Tablet(s) PO QHS 12/03/201106/15 Inactive fluoxetine 20 mg capsule RxNorm: 389426 1 Capsule(s) PO QD 12/03/19 12 05/24/2012 Inactive diltiazem ER (XR/XT) 240 mg capsule,extended release,control led RxNorm: 577520 1 Capsule(s) PO QD 11/15/2011 11/09/2012 Inactive Benicar HCT 40 mg-25 mg tablet RxNorm: 577093 1 Tablet(s) PO QD 02/16/2012 Inactive metformin ER 500 mg 24 hr Tab RxNorm: 285296 1 Tablet(s) PO BID 12/02/2011 Inactive Zocor 40 mg Tab RxNorm: 303933 1 Tablet(s) PO QHS 05/30/2011 11/25/19 12 Inactive fluoxetine 20 mg Cap RxNorm: 970909 1 Capsule(s) PO QD 05/28/2011 Inactive Neurontin 600 mg Tab RxNorm: 030567 1 Tablet(s) PO QHS 05/28/2011 Inactive Neurontin 600 mg Tab RxNorm: 872899 1 Tablet(s) PO QHS 02/22/201106/2011 Inactive Neurontin 600 mg Tab RxNorm: 220458 1 Tablet(s) PO QHS 01/14/2011 Inactive Neurontin 300 mg Cap RxNorm: 320481 1 Capsule(s) PO QHS 01/14/2011 Inactive Neurontin 600 mg Tab RxNorm: 118281 1 Tablet(s) PO QHS 01/14/2011 Inactive Medrol (Vipul) 4 mg Tabs in a Dose Pack RxNorm: 485524 Tablet(s) PO 0 01/02/2011 08/28/2011 Inactive as directed fluoxetine 20 mg Cap RxNorm: 182926 1 Capsule(s) PO QD 12/10/201006/2011 Inactive Zocor 40 mg Tab RxNorm: 876350 1 Tablet(s) PO QHS 12/03/2010 05/29/19 12 Inactive Neurontin 300 mg Cap RxNorm: 200287 1 Capsule(s) PO QHS 12/03/2010 Inactive Septra DS 800 mg-160 mg Tab RxNorm: 394084 1 Tablet(s) PO BID 11/2912/08/2010 Inactive diltiazem ER (XR/XT) 240 mg Continuous Release Cap RxNorm: 8 16518 1 Capsule(s) PO QD 11/20/2010 11/15/2011 Inactive Neurontin 300 mg Cap RxNorm: 555844 1 Capsule(s) PO QHS 11/06/2010 Inactive Neurontin 300 mg Cap RxNorm: 619934 1 Capsule(s) PO QHS 11/06/2010 Inactive Celebrex 200 mg Cap RxNorm: 979223 1 Capsule(s) PO BID 10/24/2010 Inactive fluoxetine 20 mg Cap RxNorm: 094103 1 Capsule(s) PO QD 06/07/201003/2011 Inactive Zocor 40 mg Tab RxNorm: 651648 1 Tablet(s) PO QHS 06/05/2010 12/02/19 11 Inactive Benicar HCT 40 mg-25 mg Tab RxNorm: 619554 1 Tablet(s) PO QD 200908/21/2011 Inactive Diltiazem 240 mg Continuous Release Cap RxNorm: 826245 1 Capsul e(s) PO QD 11/09/2009 09/02/2018 Inactive Avelox 400 mg Tab RxNorm: 364377 1 Tablet(s) PO QD 08/22/2009 010 Inactive ProAir HFA 90 mcg/actuation aerosol inhaler RxNorm: 721324 2 Puff(s) INH Q4H as needed No Start Date Active tramadol 50 mg tablet RxNorm: 976427 1-2 Tablet(s) PO TID as ne eded for pain No Start Date Active Tylenol Arthritis 650 mg Tab RxNorm: 8909277 2 Tablet(s) PO QD No Sta rt Date Active Celebrex 200 mg Cap RxNorm: 496689 1 Capsule(s) PO BID No Start Date 08/08/2015 Inactive Medrol (Vipul) 4 mg Tabs in a Dose Pack RxNorm: 682160 Tablet(s) PO N o Start Date 01/01/2011 Inactive as directed Promethazine-DM 6.25 mg-15 mg/5 mL Syrup RxNorm: 670408 1-2 Teaspoon(s) PO Q4H prn cough No Start Date 08/28/2011 Inactive Claritin 10 mg tablet RxNorm: 476926 1 Tablet(s) PO QD No Start Date 08/08/2015 Inactive [id number] Oral RxNorm: Oral No Start Da te 03/28/2019 Inactive Breo Ellipta 200 mcg-25 mcg/dose powder for inhalation RxNor m: 7308540 1 Puff(s) INH QD No Start Date 04/09/2017 Inactive metformin 500 mg Tab RxNorm: 241678 1 Tablet(s) PO QD No Start Date 0 08/17/2011 Inactive Diltiazem 240 mg Continuous Release Cap RxNorm: 819812 1 Capsul e(s) PO BID No Start Date 11/08/2009 Inactive fluoxetine 20 mg Cap RxNorm: 195789 1 Capsule(s) PO QD No Start Date 06/07/2010 Inactive Multivitamin & Mineral Formula Oral RxNorm: Oral No Start Da te 03/28/2019 Inactive Medrol (Vipul) 4 mg tablets in a dose pack RxNorm: 436803 Tablet(s) PO as directed No Start Date 05/28/2012 Inactive Fish Oil 1,000 mg Cap RxNorm: 1 Capsule(s) PO QD No Start Date 07/2018 Inactive Nexium 40 mg Cap RxNorm: 661188 1 Capsule(s) PO QD No Start Date 07/24 Inactive fluticasone 50 mcg/actuation nasal spray,suspension RxNorm: 8505790 2 [place] NASAL QD to each nostril No Start Date 08/03/2017 Inactive Viagra 100 mg tablet RxNorm: 124456 1 Tablet(s) PO as needed No Sta rt Date 09/17/2015 Inactive prednisone 20 mg tablet RxNorm: 523601 1 Tablet(s) PO B ID for 4 days then 1 po daily for 4 days No Start Date 11/23/2018 Inactive Benicar HCT 40 mg-25 mg Tab RxNorm: 452029 1 Tablet(s) PO QD No Sta rt [...] Date S ervice Location MICROALBUMIN URINE RANDOM 57906 MICRL MG/L 5.8 MG/L 03/2011 Unknown MICROALBUMIN URINE RANDOM 09440 XM.ALB/CRE 5.2 MG/GCR Unknown MICROALBUMIN URINE RANDOM 92610 CREAT MG/D 111 MG/DL 03/2011 Unknown MICROALBUMIN URINE RANDOM 86014 CRE/100 1.11 G/L 12/24 Unknown Procedures Procedure Codes Date FLU VACC PRSV FREE INC ANTIG 65 AND OLDER CPT-4: 16142 03/04/2019 ADMIN PNEUMOCOCCAL VACCINE CPT-4: G0009 03/04/2019 ADMIN INFLUENZA VIRUS VAC CPT-4: G0008 03/04/2019 FLU VACC PRSV FREE INC ANTIG 65 AND OLDER CPT-4: 22882 03/04/2019 PNEUMOCOCCAL VACC 23 RAYMON IM CPT-4: 43591 03/04/2019 THER/PROPH/DIAG INJ SC/IM CPT-4: 73709 08/11/2018 TRIAMCINOLONE ACET INJ NOS CPT-4: J3301 08/11/2018 DEXAMETHASONE SODIUM PHOS CPT-4: J1100 08/11/2018 THER/PROPH/DIAG INJ SC/IM CPT-4: 96200 07/16/2018 METHYLPREDNISOLONE INJECTION CPT-4: J2930 07/16/2018 INFLUENZA ASSAY W/OPTIC CPT-4: 26007 07/16/2018 THER/PROPH/DIAG INJ SC/IM CPT-4: 47895 07/13/2018 TRIAMCINOLONE ACET INJ NOS CPT-4: J3301 07/13/2018 THER/PROPH/DIAG INJ SC/IM CPT-4: 57381 05/04/2018 METHYLPREDNISOLONE INJECTION CPT-4: J2930 05/04/2018 FLU VACC PRSV FREE INC ANTIG 65 AND OLDER CPT-4: 14022 02/10/2018 PNEUMOCOCCAL VACC 13 RAYMON IM CPT-4: 73545 02/10/2018 ADMIN INFLUENZA VIRUS VAC CPT-4: G0008 02/10/2018 ADMIN PNEUMOCOCCAL VACCINE CPT-4: G0009 02/10/2018 THER/PROPH/DIAG INJ SC/IM CPT-4: 09315 09/09/2017 TRIAMCINOLONE ACET INJ NOS CPT-4: J3301 09/09/2017 ALBUTEROL NON-COMP UNIT CPT-4: J7613 04/10/2017 AIRWAY INHALATION TREATMENT CPT-4: 88084 04/10/2017 PRESCRIP TRANSMIT VIA ERX SY CPT-4: G8553 04/10/2017 FLU VACC PRSV FREE INC ANTIG 65 AND OLDER CPT-4: 16008 03/28/2017 ADMIN INFLUENZA VIRUS VAC CPT-4: G0008 03/28/2017 PRESCRIP TRANSMIT VIA ERX SY CPT-4: G8553 08/27/2016 PRESCRIP TRANSMIT VIA ERX SY CPT-4: G8553 06/14/2016 ALBUTEROL NON-COMP UNIT CPT-4: J7613 06/13/2016 AIRWAY INHALATION TREATMENT CPT-4: 84224 06/13/2016 PRESCRIP TRANSMIT VIA ERX SY CPT-4: [...] CPT-4: G8553 11/07/2014 THER/PROPH/DIAG INJ SC/IM CPT-4: 61113 09/21/2014 METHYLPREDNISOLONE INJECTION CPT-4: J2930 09/21/2014 PRESCRIP TRANSMIT VIA ERX SY CPT-4: G8553 09/21/2014 PRESCRIP TRANSMIT VIA ERX SY CPT-4: G8553 06/10/2014 URINALYSIS NONAUTO W/O SCOPE CPT-4: 93056 06/01/2012 PRESCRIP TRANSMIT VIA ERX SY CPT-4: G8553 05/25/2012 PRESCRIP TRANSMIT VIA ERX SY CPT-4: G8553 12/03/2011 CUR TOBACCO NON-USER CPT-4: G8457 05/30/2011 PRESCRIP TRANSMIT VIA ERX SY CPT-4: G8553 05/30/2011 URINALYSIS NONAUTO W/O SCOPE CPT-4: 66130 01/01/2011 URINE CULTURE/ COLONY COUNT CPT-4: 68894 01/01/2011 CUR TOBACCO NON-USER CPT-4: G8457 01/01/2011 [...] 1: 114/68 Code: 8480-6 BMI: 43.5 Code: 39872-3 Heart Rate 1: 52 bpm Height: 6'1" [...] 1: 136/72 Code: 8480-6 BMI: 42.7 Code: 19411-3 Heart Rate 1: 60 bpm Height: 6'1" Respiratory Rate: 22 bpm SpO2: 95% Tempera ture: 37.1 (C) / 98.7 (F) Weight: 324 lbs 02/10/2018 Blood Pressure 1: 146/78 Code: 8480-6 BMI: 42.4 Code: 64664-4 Heart Rate 1: 64 bpm Height: 6'1" Respiratory Rate: 22 bpm SpO2: 95% Tempera ture: 36.5 (C) / 97.7 (F) Weight: 321 lbs 11/05/2017 Blood Pressure 1: 128/84 Code: 8480-6 BMI: 42.9 Code: 52010-8 Heart Rate 1: 52 bpm Height: 6'1" Respiratory Rate: 22 bpm SpO2: 95% Tempera ture: 36.3 (C) / 97.3 (F) Weight: 325 lbs 09/09/2017 Blood Pressure 1: 162/90 Code: 8480-6 BMI: 42.5 Code: 18521-0 Heart Rate 1: 60 bpm Height: 6'1" Respiratory Rate: 24 bpm SpO2: 95% Tempera ture: 36.4 (C) / 97.6 (F) Weight: 322 lbs 08/07/2017 Blood Pressure 1: 152/90 Code: 8480-6 BMI: 42.2 Code: 08405-8 Heart Rate 1: 60 bpm Height: 6'1" Respiratory Rate: 26 bpm SpO2: 94% Tempera ture: 36.6 (C) / 97.8 (F) Weight: 320 lbs 08/04/2017 Blood Pressure 1: 150/86 Code: 8480-6 BMI: 42.7 Code: 94185-6 Heart Rate 1: 64 bpm Height: 6'1" Respiratory Rate: 20 bpm SpO2: 94% Tempera ture: 36.3 (C) / 97.3 (F) Weight: 324 lbs 06/04/2017 Blood Pressure 1: 164/90 Code: 8480-6 Heart Rate 1: 60 bpm Respiratory Rate: 24 bpm SpO2: 94% Temperature: 36.8 (C) / 98.3 (F) 06/02/2017 Blood Pressure 1: 162/80 Code: 8480-6 BMI: 42.9 Code: 51481-4 Heart Rate 1: 66 bpm Height: 6'1" Respiratory Rate: 22 bpm SpO2: 98% Tempera ture: 36.6 (C) / 97.8 (F) Weight: 325 lbs 05/05/2017 Blood Pressure 1: 164/94 Code: 8480-6 BMI: 41.4 Code: 91570-0 Heart Rate 1: 64 bpm Height: 6'1" Respiratory Rate: 22 bpm SpO2: 95% Tempera ture: 36.4 (C) / 97.5 (F) Weight: 314 lbs 04/10/2017 Blood Pressure 1: 136/78 Code: 8480-6 BMI: 42.0 Code: 01692-1 Heart Rate 1: 76 bpm Height: 6'1" Respiratory Rate: 24 bpm SpO2: 92% Tempera ture: 35.9 (C) / 96.7 (F) Weight: 318 lbs 02/03/2017 Blood Pressure 1: 134/82 Code: 8480-6 BMI: 41.7 Code: 90719-6 Heart Rate 1: 72 bpm Height: 6'1" Respiratory Rate: 24 bpm SpO2: 95% Tempera ture: 36.1 (C) / 97.0 (F) Weight: 316 lbs 10/30/2016 Blood Pressure 1: 126/74 Code: 8480-6 BMI: 41.3 Code: 57074-5 Heart Rate 1: 68 bpm Height: 6'1" Respiratory Rate: 20 bpm Temperature: 37 .1 (C) / 98.8 (F) Weight: 313 lbs 08/30/2016 Blood Pressure 1: 146/80 Code: 8480-6 BMI: 41.7 Code: 87136-5 Heart Rate 1: 64 bpm Height: 6'1" Respiratory Rate: 24 bpm SpO2: 94% Tempera ture: 36.6 (C) / 97.8 (F) Weight: 316 lbs 08/27/2016 Blood Pressure 1: 124/78 Code: 8480-6 Heart Rate 1: 66 bpm Height: 6'2" Respiratory Rate: 18 bpm SpO2: 94% Temperature: 36.6 (C) / 97.8 (F) Weight: 07/02/2016 Blood Pressure 1: 126/78 Code: 8480-6 BMI: 41.4 Code: 44443-2 Heart Rate 1: 68 bpm Height: 6'1" Respiratory Rate: 24 bpm SpO2: 94% Tempera ture: 36.6 (C) / 97.8 (F) Weight: 314 lbs 06/14/2016 Blood Pressure 1: 146/82 Code: 8480-6 Heart Rate 1: 80 bpm Respiratory Rate: 20 bpm SpO2: 95% Temperature: 37.3 (C) / 99.2 (F) 06/13/2016 Blood Pressure 1: 146/84 Code: 8480-6 BMI: 40.5 Code: 53696-1 Heart Rate 1: 66 bpm Height: 6'1" Respiratory Rate: 28 bpm SpO2: 93% Tempera ture: 35.8 (C) / 96.4 (F) Weight: 307 lbs 05/14/2016 Blood Pressure 1: 146/90 Code: 8480-6 BMI: 41.2 Code: 76767-1 Heart Rate 1: 68 bpm Height: 6'1" Respiratory Rate: 26 bpm Temperature: 36 .8 (C) / 98.2 (F) Weight: 312 lbs 04/29/2016 Blood Pressure 1: 152/90 Code: 8480-6 BMI: 41.0 Code: 11320-0 Heart Rate 1: 68 bpm Height: 6'1" Respiratory Rate: 26 bpm SpO2: 94% Tempera ture: 36.1 (C) / 96.9 (F) Weight: 311 lbs 04/22/2016 Blood Pressure 1: 152/94 Code: 8480-6 BMI: 40.9 Code: 77923-2 Heart Rate 1: 68 bpm Height: 6'1" Respiratory Rate: 24 bpm SpO2: 94% Tempera ture: 36.2 (C) / 97.2 (F) Weight: 310 lbs 04/01/2016 Blood Pressure 1: 156/78 Code: 8480-6 BMI: 40.6 Code: 35284-3 Heart Rate 1: 84 bpm Height: 6'1" Respiratory Rate: 22 bpm SpO2: 95% Tempera ture: 37.1 (C) / 98.7 (F) Weight: 308 lbs 11/30/2015 Blood Pressure 1: 142/80 Code: 8480-6 BMI: 40.5 Code: 19374-7 Heart Rate 1: 88 bpm Height: 6'1" Respiratory Rate: 22 bpm Temperature: 36 .2 (C) / 97.2 (F) Weight: 307 lbs 08/29/2015 Blood Pressure 1: 132/70 Code: 8480-6 BMI: 40.0 Code: 01323-1 Heart Rate 1: 76 bpm Height: 6'1" Respiratory Rate: 24 bpm SpO2: 96% Tempera ture: 36.7 (C) / 98.0 (F) Weight: 303 lbs 08/14/2015 Blood Pressure 1: 126/80 Code: 8480-6 BMI: 39.4 Code: 10218-3 Heart Rate 1: 92 bpm Height: 6'1" Respiratory Rate: 24 bpm SpO2: 94% Tempera ture: 37.8 (C) / 100.0 (F) Weight: 299 lbs 08/09/2015 Blood Pressure 1: 146/82 Code: 8480-6 Heart Rate 1: 82 bpm Respiratory Rate: 22 bpm SpO2: 93% Temperature: 35.9 (C) / 96.6 (F) We ight: 310 lbs 05/22/2015 Blood Pressure 1: 156/76 Code: 8480-6 BMI: 41.0 Code: 55903-9 Heart Rate 1: 100 bpm Height: 6'1" Respiratory Rate: 22 bpm Temperature: 37 .2 (C) / 98.9 (F) Weight: 311 lbs 02/13/2015 Blood Pressure 1: 166/90 Code: 8480-6 BMI: 41.2 Code: 14712-6 Heart Rate 1: 72 bpm Height: 6'1" Respiratory Rate: 24 bpm SpO2: 93% Tempera ture: 36.9 (C) / 98.5 (F) Weight: 312 lbs 11/07/2014 Blood Pressure 1: 134/70 Code: 8480-6 BMI: 40.5 Code: 74690-7 Heart Rate 1: 76 bpm Height: 6'1" Respiratory Rate: 24 bpm Temperature: 36 .9 (C) / 98.4 (F) Weight: 307 lbs 10/04/2014 Blood Pressure 1: 144/86 Code: 8480-6 BMI: 40.1 Code: 64007-4 Heart Rate 1: 76 bpm Height: 6'1" Respiratory Rate: 28 bpm Temperature: 36 .6 (C) / 97.9 (F) Weight: 304 lbs 09/22/2014 Blood Pressure 1: 142/80 Code: 8480-6 BMI: 40.0 Code: 23230-0 Heart Rate 1: 80 bpm Height: 6'1" Respiratory Rate: 22 bpm SpO2: 96% Tempera ture: 36.6 (C) / 97.8 (F) Weight: 303 lbs 09/21/2014 Blood Pressure 1: 160/66 Code: 8480-6 BMI: 40.0 Code: 37738-1 Heart Rate 1: 90 bpm Height: 6'1" Respiratory Rate: 26 bpm SpO2: 94% Tempera ture: 35.7 (C) / 96.2 (F) Weight: 303 lbs 06/28/2014 Blood Pressure 1: 132/80 Code: 8480-6 BMI: 41.0 Code: 16380-6 Heart Rate 1: 64 bpm Height: 6' Respiratory Rate: 20 bpm Temperature: 36 .7 (C) / 98.0 (F) Weight: 302 lbs 06/10/2014 Blood Pressure 1: 152/70 Code: 8480-6 BMI: 41.1 Code: 41732-2 Heart Rate 1: 76 bpm Height: 6' Respiratory Rate: 20 bpm Temperature: 36 .6 (C) / 97.8 (F) Weight: 303 lbs 03/29/2014 Blood Pressure 1: 132/78 Code: 8480-6 BMI: 40.6 Code: 73355-8 Heart Rate 1: 84 bpm Height: 6' Respiratory Rate: 22 bpm Temperature: 37 .1 (C) / 98.8 (F) Weight: 299 lbs 11/30/2013 Blood Pressure 1: 136/84 Code: 8480-6 BMI: 39.2 Code: 93219-4 Heart Rate 1: 76 bpm Height: 6' Respiratory Rate: 20 bpm Temperature: 36 .8 (C) / 98.2 (F) Weight: 289 lbs 08/03/2013 Blood Pressure 1: 144/80 Code: 8480-6 Heart Rate 1: 86 bpm Respiratory Rate: 20 bpm Temperature: 36.6 (C) / 97.8 (F) Weight: 296 lbs 04/06/2013 Blood Pressure 1: 142/90 Code: 8480-6 BMI: 40.3 Code: 57419-6 Heart Rate 1: 88 bpm Height: 6' Respiratory Rate: 20 bpm Temperature: 36 .6 (C) / 97.8 (F) Weight: 297 lbs 12/01/2012 Blood Pressure 1: 124/78 Code: 8480-6 BMI: 38.7 Code: 26808-1 Heart Rate 1: 76 bpm Height: 6' Respiratory Rate: 20 bpm Temperature: 37 .2 (C) / 98.9 (F) Weight: 285 lbs 08/04/2012 Blood Pressure 1: 128/80 Code: 8480-6 BMI: 38.2 Code: 94543-6 Heart Rate 1: 76 bpm Height: 6' Respiratory Rate: 20 bpm Temperature: 37 .0 (C) / 98.6 (F) Weight: 282 lbs 05/29/2012 Blood Pressure 1: 138/78 Code: 8480-6 BMI: 36.6 Code: 36416-2 Heart Rate 1: 66 bpm Height: 6' Temperature: 36.7 (C) / 98.1 (F) Weight: 270 lbs 05/25/2012 Blood Pressure 1: 128/72 Code: 8480-6 BMI: 39.9 Code: 97302-7 Heart Rate 1: 74 bpm Height: 6' Temperature: 36.1 (C) / 97.0 (F) Weight: 294 lbs 04/07/2012 Blood Pressure 1: 124/76 Code: 8480-6 BMI: 39.9 Code: 79102-5 Heart Rate 1: 72 bpm Height: 6' Respiratory Rate: 20 bpm Temperature: 36 .9 (C) / 98.5 (F) Weight: 294 lbs 12/16/2011 Blood Pressure 1: 128/80 Code: 8480-6 BMI: 40.8 Code: 92401-7 Heart Rate 1: 74 bpm Height: 6' Temperature: 36.6 (C) / 97.8 (F) Weight: 301 lbs 12/03/2011 Blood Pressure 1: 132/76 Code: 8480-6 BMI: 40.8 Code: 18603-0 Heart Rate 1: 68 bpm Height: 6' Respiratory Rate: 20 bpm Temperature: 36 .8 (C) / 98.2 (F) Weight: 301 lbs 08/29/2011 Blood Pressure 1: 140/68 Code: 8480-6 BMI: 40.8 Code: 11049-5 Heart Rate 1: 80 bpm Height: 6' Respiratory Rate: 20 bpm Temperature: 36 .4 (C) / 97.6 (F) Weight: 301 lbs 05/30/2011 Blood Pressure 1: 134/82 Code: 8480-6 BMI: 41.5 Code: 55178-5 Heart Rate 1: 76 bpm Height: 6' [...] 1: 126/72 Code: 8480-6 BMI: 41.2 Code: 92990-3 Heart Rate 1: 76 bpm Height: 6' [...] 1: 152/90 Code: 8480-6 BMI: 37.7 Code: 86343-8 Heart Rate 1: 92 bpm Height: 6'1" [...] dm Encounters Encounter Performer Location Codes Date ([id number]) OFFICE/OUTPATIENT VISIT EST Diagnosis: Chronic obstructive pulmonary disease with (acute) exacerbation[ICD10: J44.1] Neela HYMAN [employer] CPT- 4: 96251 08/10/2019 ([id number]) OFFICE/OUTPATIENT VISIT EST Diagnosis: Sore on toe[ICD10: L98.9] Neela VASQUEZ [employer] CPT-4: 86620 07/06/2019 ([id number]) OFFICE/OUTPATIENT VISIT EST Diagnosis: Advanced chronic obstructive pulmonary disease[ICD10: J44.9] 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] Neela QURESHI [employer] CPT-4: 79820 05/10/2019 ([id number]) OFFICE/OUTPATIENT VISIT EST Diagnosis: Chronic obstructive pulmonary disease with (acute) exacerbation[ICD10: J44.1] Diagnosis: Hypokalemia[ICD10: E87.6] 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] Neela Yenni HYMAN DO [facility] CPT-4: 00657 03/29/2019 ([id number]) NURSE/OUTPATIENT VISIT EST Diagnosis: PNEUMOCOCCAL VACCINE[ICD10: Z23] Neela HYMAN DO [facility] CPT-4: 86171 03/04/2019 ([id number]) OFFICE/OUTPATIENT VISIT EST Diagnosis: Chronic obstructive pulmonary disease with (acute) exacerbation[ICD10: J44.1] Diagnosis: Other nonspecific abnormal finding of lung field[ICD10: R91.8] Neela HYMAN DO [facility] CPT-4: 41098 01/05/2019 ([id number]) OFFICE/OUTPATIENT VISIT EST Diagnosis: Solitary pulmonary nodule[ICD10: R91.1] 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] Diagnosis: Tinea corporis[ICD10: B35.4] Neela HYMAN DO [facility] CPT-4: 44329 12/09/2018 ([id number]) OFFICE/OUTPATIENT VISIT EST Diagnosis: COUGH[ICD10: R05] Diagnosis: Chronic obstructive pulmonary disease, unspecified[ICD10: J44.9] Diagnosis: Other disorders of lung[ICD10: J98.4] Diagnosis: Other nonspecific abnormal finding of lung field[ICD10: R91.8] Neela HYMAN DO [facility] CPT-4: 44291 11/24/2018 ([id number]) OFFICE/OUTPATIENT VISIT EST Diagnosis: Pneumonia, unspecified organism[ICD10: J18.9] Amita Henderson NEELA HYMAN DO [facility] CPT-4: 04529 09/16/2018 ([id number]) OFFICE/OUTPATIENT VISIT EST Diagnosis: Pneumonia, unspecified organism[ICD10: J18.9] Neela HYMAN DO [facility] CPT-4: 45664 09/03/2018 ([id number]) OFFICE/OUTPATIENT VISIT EST Diagnosis: Personal history of pneumonia (recurrent)[ICD10: Z87.01] Diagnosis: Cough[ICD10: R05] Diagnosis: Essential (primary) hypertension[ICD10: I10] Diagnosis: Type 2 diabetes mellitus with hyperglycemia[ICD10: E11.65] Amitacalvin Henderson NEELA Octavio [employer] [facility] CPT-4: 22910 08/27/2018 OFFICE/OUTPATIENT VISIT EST Diagnosis: Pneumonia, unspecified organism[ICD10: J18.9] Diagnosis: Chronic obstructive pulmonary disease with (acute) exacerbation[ICD10: J44.1] Diagnosis: Other specified symptoms and signs involving the circulatory and respiratory systems[ICD10: R09.89] Diagnosis: Essential (primary) hypertension[ICD10: I10] Amita Santi[place]olincoln [place] [employer] [facility] CPT-4: 18823 08/13/2018 OFFICE/OUTPATIENT VISIT EST Diagnosis: Pneumonia, unspecified organism[ICD10: J18.9] Diagnosis: Other specified symptoms and signs involving the circulatory and respiratory systems[ICD10: R09.89] Amita Santi[place]olincoln [place] [employer] [facility] CPT-4: 77967 08/11/2018 ([id number]) OFFICE/OUTPATIENT VISIT EST Diagnosis: Dyspnea, unspecified[ICD10: R06.00] Diagnosis: Chronic obstructive pulmonary disease with (acute) exacerbation[ICD10: J44.1] Diagnosis: Pneumonia, unspecified organism[ICD10: J18.9] Amita Santi[place]incoln [place] Julissa [employer] [facility] CPT-4: 63381 07/16/2018 ([id number]) OFFICE/OUTPATIENT VISIT EST Diagnosis: Acute bronchitis due to other specified organisms[ICD10: J20.8] Diagnosis: Cough[ICD10: R05] Amita Santiagodebbie [place] [employer] [facility] T-4: 44281 07/13/2018 ([id number]) OFFICE/OUTPATIENT VISIT EST Diagnosis: Essential (primary) hypertension[ICD10: I10] Diagnosis: Chronic obstructive pulmonary disease, unspecified[ICD10: J44.9] Diagnosis: Type 2 diabetes mellitus with hyperglycemia[ICD10: E11.65] Diagnosis: Mixed hyperlipidemia[ICD10: E78.2] Neela STERLING [employer] [facility] CPT-4: 76897 06/03/2018 ([id number]) OFFICE/OUTPATIENT VISIT EST Diagnosis: Chronic obstructive pulmonary disease, unspecified[ICD10: J44.9] Gely [place]UR[place]O [employer] [facility] CPT-4: 96692 05/04/2018 ([id number]) OFFICE/OUTPATIENT VISIT EST Diagnosis: Essential (primary) hypertension[ICD10: I10] Diagnosis: Localized edema[ICD10: R60.0] Neela HYMAN DO [facility] CPT-4: 61801 03/03/2018 ([id number]) OFFICE/OUTPATIENT VISIT EST Diagnosis: Localized edema[ICD10: R60.0] Neela HYMAN DO [facility] CPT-4: 13467 02/17/2018 ([id number]) OFFICE/OUTPATIENT VISIT EST Diagnosis: FLU VACCINE[ICD10: Z23] Diagnosis: PNEUMOCOCCAL VACCINE[ICD10: Z23] Diagnosis: Type 2 diabetes mellitus without complications[ICD10: E11.9] Diagnosis: Mixed hyperlipidemia[ICD10: E78.2] Diagnosis: Essential (primary) hypertension[ICD10: I10] Diagnosis: Localized edema[ICD10: R60.0] Diagnosis: Chronic obstructive pulmonary disease, unspecified[ICD10: J44.9] Neela HYMAN [facility] CPT-4: 25262 02/10/2018 ([id number]) OFFICE/OUTPATIENT VISIT EST Diagnosis: Type 2 diabetes mellitus with hyperglycemia[ICD10: E11.65] Diagnosis: Mixed hyperlipidemia[ICD10: E78.2] Diagnosis: Essential (primary) hypertension[ICD10: I10] Diagnosis: Chronic obstructive pulmonary disease, unspecified[ICD10: J44.9] Diagnosis: Cutaneous abscess of back [any part, except buttock][ICD10: L02.212] Neela HYMAN [facility] CPT-4: 08259 11/05/2017 ([id number]) OFFICE/OUTPATIENT VISIT EST Diagnosis: Allergic urticaria[ICD10: L50.0] Gely HYMAN DO [facility] CPT-4: 65482 09/09/2017 ([id number]) OFFICE/OUTPATIENT VISIT EST Diagnosis: Generalized enlarged lymph nodes[ICD10: R59.1] Diagnosis: Acute gastritis without bleeding[ICD10: K29.00] Gely HYMAN [facility] CPT-4: 82147 08/07/2017 ([id number]) OFFICE/OUTPATIENT VISIT EST Diagnosis: Type 2 diabetes mellitus without complications[ICD10: E11.9] Diagnosis: Mixed hyperlipidemia[ICD10: E78.2] Diagnosis: Essential (primary) hypertension[ICD10: I10] Neela HYMAN DO [facility] CPT-4: 80711 08/04/2017 ([id number]) OFFICE/OUTPATIENT VISIT EST Diagnosis: Zoster without complications[ICD10: B02.9] Diagnosis: Acute sialoadenitis[ICD10: K11.21] Gely HYMAN DO [facility] CPT-4: 94604 06/04/2017 OFFICE/OUTPATIENT VISIT EST Diagnosis: Zoster without complications[ICD10: B02.9] Diagnosis: Acute sialoadenitis[ICD10: K11.21] Gely HYMAN [facility] CPT-4: 92900 06/02/2017 ([id number]) OFFICE/OUTPATIENT VISIT EST Diagnosis: Type 2 diabetes mellitus without complications[ICD10: E11.9] Diagnosis: Mixed hyperlipidemia[ICD10: E78.2] Diagnosis: Essential (primary) hypertension[ICD10: I10] Diagnosis: Chronic obstructive pulmonary disease, unspecified[ICD10: J44.9] Neela HYMAN [facility] CPT-4: 79055 05/05/2017 OFFICE/OUTPATIENT VISIT EST Diagnosis: Chronic obstructive pulmonary disease with acute lower respiratory infection[ICD10: J44.0] Diagnosis: Impacted cerumen, bilateral[ICD10: H61.23] Gely HYMAN [facility] CPT-4: 52497 04/10/2017 ([id number]) OFFICE/OUTPATIENT VISIT EST Diagnosis: FLU VACCINE[ICD10: Z23] Neela BUI [facility] CPT-4: 76231 03/28/2017 ([id number]) OFFICE/OUTPATIENT VISIT EST Diagnosis: Type 2 diabetes mellitus without complications[ICD10: E11.9] Diagnosis: Mixed hyperlipidemia[ICD10: E78.2] Diagnosis: Essential (primary) hypertension[ICD10: I10] Diagnosis: Chronic obstructive pulmonary disease, unspecified[ICD10: J44.9] Neela HYMAN DO [facility] CPT-4: 40161 02/03/2017 ([id number]) OFFICE/OUTPATIENT VISIT EST Diagnosis: Type 2 diabetes mellitus with hyperglycemia[ICD10: E11.65] Diagnosis: Mixed hyperlipidemia[ICD10: E78.2] Diagnosis: Essential (primary) hypertension[ICD10: I10] Diagnosis: Chronic obstructive pulmonary disease, unspecified[ICD10: J44.9] Neela HYMAN DO [facility] CPT-4: 65948 10/30/2016 ([id number]) NO CHARGE Diagnosis: Acute bronchitis, unspecified[ICD10: J20.9] Sammi HYMAN [employer] [facility] CPT-4: 06849 08/30/2016 ([id number]) OFFICE/OUTPATIENT VISIT EST Diagnosis: Acute bronchitis, unspecified[ICD10: J20.9] Diagnosis: Other seasonal allergic rhinitis[ICD10: J30.2] Sammi HYMAN [employer] [facility] CPT-4: 54993 08/27/2016 ([id number]) OFFICE/OUTPATIENT VISIT EST Diagnosis: Type 2 diabetes mellitus without complications[ICD10: E11.9] Diagnosis: Mixed hyperlipidemia[ICD10: E78.2] Diagnosis: Essential (primary) hypertension[ICD10: I10] Neela HYMAN [employer] [facility] CPT-4: 28691 07/02/2016 ([id number]) OFFICE/OUTPATIENT VISIT EST Diagnosis: Acute bronchitis, unspecified[ICD10: J20.9] Sammi HYMAN [employer] [facility] CPT-4: 91616 06/14/2016 ([id number]) OFFICE/OUTPATIENT VISIT EST Diagnosis: Acute bronchitis, unspecified[ICD10: J20.9] Sammi HYMAN [employer] [facility] CPT-4: 46981 06/13/2016 ([id number]) OFFICE/OUTPATIENT VISIT EST Diagnosis: Essential (primary) hypertension[ICD10: I10] Neela HYMAN [employer] [facility] CPT-4: 08643 05/14/2016 ([id number]) OFFICE/OUTPATIENT VISIT EST Diagnosis: Essential (primary) hypertension[ICD10: I10] Neela HYMAN [employer] [facility] CPT-4: 66481 04/29/2016 ([id number]) OFFICE/OUTPATIENT VISIT EST Diagnosis: Unspecified abdominal pain[ICD10: R10.9] Diagnosis: Left lower quadrant pain[ICD10: R10.32] Diagnosis: Left upper quadrant pain[ICD10: R10.12] Diagnosis: Essential (primary) hypertension[ICD10: I10] Neela HYMAN DO [facility] CPT-4: 40756 04/22/2016 ([id number]) OFFICE/OUTPATIENT VISIT EST Diagnosis: Type 2 diabetes mellitus without complications[ICD10: E11.9] Diagnosis: Mixed hyperlipidemia[ICD10: E78.2] Diagnosis: Essential (primary) hypertension[ICD10: I10] Neela HYMAN [employer] [facility] CPT-4: 23463 04/01/2016 ([id number]) OFFICE/OUTPATIENT VISIT EST Diagnosis: Type 2 diabetes mellitus with hyperglycemia[ICD10: E11.65] Diagnosis: Mixed hyperlipidemia[ICD10: E78.2] Diagnosis: Essential (primary) hypertension[ICD10: I10] Neela HYMAN [employer] [facility] CPT-4: 35226 11/30/2015 ([id number]) OFFICE/OUTPATIENT VISIT EST Diagnosis: Type 2 diabetes mellitus with diabetic neuropathy, unspecified[ICD10: E11.40] Diagnosis: Essential (primary) hypertension[ICD10: I10] Diagnosis: Mixed hyperlipidemia[ICD10: E78.2] Neela HYMAN [employer] [facility] CPT-4: 52486 08/29/2015 ([id number]) OFFICE/OUTPATIENT VISIT EST Diagnosis: COUGH[ICD10: R05] Diagnosis: Wheezing[ICD10: R06.2] Diagnosis: Type 2 diabetes mellitus with diabetic neuropathy, unspecified[ICD10: E11.40] Neela HYMAN [employer] [facility] CPT-4: 40745 08/14/2015 ([id number]) OFFICE/OUTPATIENT VISIT EST Diagnosis: Other seasonal allergic rhinitis[ICD10: J30.2] Diagnosis: Dyspnea, unspecified[ICD10: R06.00] Diagnosis: Wheezing[ICD10: R06.2] Sammi Najera NEELA JulissaMendez [facility] CPT-4: 22488 08/09/2015 ([id number]) OFFICE/OUTPATIENT VISIT EST Diagnosis: Essential (primary) hypertension[ICD10: I10] Diagnosis: Type 2 diabetes mellitus with hyperglycemia[ICD10: E11.65] Diagnosis: Mixed hyperlipidemia[ICD10: E78.2] Neela STERLING Octavio HYMAN [employer] [facility] CPT-4: 68536 05/22/2015 ([id number]) OFFICE/OUTPATIENT VISIT EST Diagnosis: DM W/O COMPLICATION TYPE II[ICD9: 250.00] Diagnosis: - I - HYPERTENSION[ICD9: 401.9] Diagnosis: - I - HYPERLIPIDEMIA NEC/NOS[ICD9: 272.4] Diagnosis: Left hand paresthesia[ICD9: 782.0] Neela STERLING JulissaMendez YEN[facility] CPT-4: 39083 02/13/2015 ([id number]) OFFICE/OUTPATIENT VISIT EST Diagnosis: HYPERLIPIDEMIA NEC/NOS[ICD9: 272.4] Diagnosis: DM W/O COMPLICATION TYPE II[ICD9: 250.00] Neela MURILLO JulissaMendez YENNI [employer] [facility] CPT-4: 86260 11/07/2014 ([id number]) OFFICE/OUTPATIENT VISIT EST Diagnosis: ALLERGIC RHINITIS[ICD9: 477.9] Diagnosis: WHEEZING[ICD9: 786.07] Neela Cunningham SERGEMANOLO Gerald [employer] [facility] CPT-4: 40408 10/04/2014 ([id number]) OFFICE/OUTPATIENT VISIT EST Diagnosis: BRONCHITIS, ACUTE[ICD9: 466.0] Diagnosis: WHEEZING[ICD9: 786.07] Loren Cunningham SERGEMANOLO R [employer] [facility] CPT-4: 78922 09/22/2014 ([id number]) OFFICE/OUTPATIENT VISIT EST Diagnosis: DYSPNEA[ICD9: 786.09] Diagnosis: WHEEZING[ICD9: 786.07] Diagnosis: Arrhythmia[ICD9: 427.9] Loren Cunningham SERGEUSHA ER [employer] [facility] CPT-4: 09089 09/21/2014 ([id number]) OFFICE/OUTPATIENT VISIT EST Diagnosis: DM W/O COMPLICATION TYPE II, 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] Diagnosis: - I - HYPERLIPIDEMIA NEC/NOS[ICD9: 272.4] Diagnosis: - I - HYPERTENSION[ICD9: 401.9] Neela Sergeushahao ANNNEELA JulissaMendez [facility] CPT-4: 53096 06/28/2014 OFFICE/OUTPATIENT VISIT EST Diagnosis: SINUSITIS, ACUTE[ICD9: 461.9] Diagnosis: OTITIS MEDIA NOS[ICD9: 382.9] Sarah OchoaDanie MURILLO JulissaMendez [facility] CPT-4: 43068 06/10/2014 ([id number]) OFFICE/OUTPATIENT VISIT EST Diagnosis: DM W/O COMPLICATION TYPE II[ICD9: 250.00] Diagnosis: - I - HYPERLIPIDEMIA NEC/NOS[ICD9: 272.4] Diagnosis: - I - HYPERTENSION[ICD9: 401.9] Neela Sergechristina MURILLO JulissaMendez [facility] CPT-[facility]: 95641 03/29/2014 ([id number]) OFFICE/OUTPATIENT VISIT EST Diagnosis: DM W/O COMPLICATION TYPE II[ICD9: 250.00] Diagnosis: - I - HYPERTENSION[ICD9: 401.9] Diagnosis: - I - HYPERLIPIDEMIA NEC/NOS[ICD9: 272.4] Diagnosis: Hand lesion[ICD9: 709.9] Neela MURILLO JulissaMendez [facility] CPT-4: 34345 11/30/2013 ([id number]) OFFICE/OUTPATIENT VISIT EST Diagnosis: DM W/O COMPLICATION TYPE II[ICD9: 250.00] Diagnosis: HYPERLIPIDEMIA NEC/NOS[ICD9: 272.4] Diagnosis: HYPERTENSION[ICD9: 401.9] Neela MURILLO JulissaMendez SERGE [facility] CPT-4: 56898 08/03/2013 ([id number]) OFFICE/OUTPATIENT VISIT EST Diagnosis: DM W/O COMPLICATION TYPE II, 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] Diagnosis: HYPERTENSION[ICD9: 401.9] Diagnosis: HYPERLIPIDEMIA NEC/NOS[ICD9: 272.4] Neela GREGORIO JulissaMendez [facility] CPT-[facility]: 11089 04/06/2013 ([id number]) OFFICE/OUTPATIENT VISIT EST Diagnosis: DM W/O COMPLICATION TYPE II[ICD9: 250.00] Diagnosis: HYPERLIPIDEMIA NEC/NOS[ICD9: 272.4] Diagnosis: HYPERTENSION[ICD9: 401.9] Neela Yenni NEELA JulissaMendez SERGE [facility] CPT-4: 14637 12/01/2012 ([id number]) OFFICE/OUTPATIENT VISIT EST Diagnosis: DM W/O COMPLICATION TYPE II[ICD9: 250.00] Diagnosis: HYPERTENSION[ICD9: 401.9] Diagnosis: HYPERLIPIDEMIA NEC/NOS[ICD9: 272.4] Neela GREGORIO JulissaMendez YENNI [facility] CPT-4: 46172 08/04/2012 ([id number]) OFFICE/OUTPATIENT VISIT EST Diagnosis: URINARY FREQUENCY[ICD9: 788.41] Neela MURILLO JulissaMendez YENNI [facility] CPT-4: 86185 06/01/2012 OFFICE/OUTPATIENT VISIT EST Diagnosis: Agitation[ICD9: 307.9] Diagnosis: Frequent urination[ICD9: 788.41] Janet Cunningham [facility]HAO [facility] CPT-4: 44943 05/29/2012 OFFICE/OUTPATIENT VISIT EST Diagnosis: SINUSITIS, ACUTE[ICD9: 461.9] Diagnosis: OTALGIA[ICD9: 388.70] Neela MURILLO JulissaMendez YENNI [facility] CPT-4: 44275 05/25/2012 OFFICE/OUTPATIENT VISIT EST Diagnosis: DM W/O COMPLICATION TYPE II, 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] Diagnosis: HYPERTENSION[ICD9: 401.9] Diagnosis: HYPERLIPIDEMIA NEC/NOS[ICD9: 272.4] Neela GREGORIO JulissaMendez YENNI [facility] CPT-4: 31455 04/07/2012 OFFICE/OUTPATIENT VISIT EST Diagnosis: FINGER INJURY[ICD9: 959.5] Janet Cunningham AXEL [facility] CPT-4: 56590 12/16/2011 ([id number]) OFFICE/OUTPATIENT VISIT EST Diagnosis: DM 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 ORENDER DO [facility] CPT-4: 64453 12/03/2011 ([id number]) OFFICE/OUTPATIENT VISIT EST Diagnosis: DM W/O COMPLICATION TYPE II[ICD9: 250.00] Diagnosis: HYPERLIPIDEMIA NEC/NOS[ICD9: 272.4] Diagnosis: HYPERTENSION[ICD9: 401.9] Neela Cunningham ORE NDER DO [facility] CPT-4: 90249 08/29/2011 OFFICE/OUTPATIENT VISIT EST Diagnosis: DM W/O COMPLICATION TYPE II[ICD9: 250.00] Diagnosis: HYPERLIPIDEMIA NEC/NOS[ICD9: 272.4] Diagnosis: HYPERTENSION[ICD9: 401.9] Neela MURILLO SMendez ORE NDER DO [facility] CPT-4: 19334 05/30/2011 OFFICE/OUTPATIENT VISIT EST Diagnosis: SKIN SENSATION DISTURB[ICD9: 782.0] Neela Sergeushahao ANNJYOTIYesenia GREGORIO S. ORENDER DO [facility] CPT-4: 41956 01/29/2011 OFFICE/OUTPATIENT VISIT EST Diagnosis: SKIN SENSATION DISTURB[ICD9: 782.0] Neela Sergeushahao ANNJYOTIYesenia GREGORIO S. ORENDER DO [facility] CPT-4: 91276 01/14/2011 OFFICE/OUTPATIENT VISIT EST Neela MURILLO S. ORE NDER DO [facility] CPT- 4: 53387 01/01/2011 OFFICE/OUTPATIENT VISIT EST Neela Yenni ANNQUELINE S. ORE NDER DO [facility] CPT- 4: 30782 11/29/2010 ([id number]) OFFICE/OUTPATIENT VISIT EST Neela Sergechrsitina HORAN S. ORENDER DO [facility] CPT-4: 76010 08/28/2010 ([id number]) OFFICE/OUTPATIENT VISIT, EST Neela Sergechristina WILDE S. ORENDER DO [facility] CPT-4: 35094 06/05/2010 ([id number]) OFFICE/OUTPATIENT VISIT, EST Neela Sergechristina WILDE S. ORENDER DO [facility] CPT-4: 49553 02/05/2010 ([id number]) OFFICE/OUTPATIENT VISIT, EST Neela Sergechristina WILDE S. ORENDER DO [facility] CPT-4: 44266 10/09/2009 ([id number]) OFFICE/OUTPATIENT VISIT, EST [facility]ela [facility] CPT-4: 72174 08/22/2009 Plan of Care Planned Activity Notes [...] : L98.9 07/06/2019 Appointment: Neela Hyman WPtel: [address] [place], [place] [phone] ACUTE ILLNESS 07/06/2019 Patient Education: Makenzieir- [employer] Eranpon [phone] https://www.Ravti/AlpineReplay/resources/getResource/61/[email or web address]-[email or web address] Completed 07/06/2019 Visit Diagnosis Plan: Advanced chronic obstructive pul monary disease Discussion: Continue oxygen and pulmonary rehab Follow Up: 3 months ICD-9 : 496 ICD-10 : J44.9 05/10/2019 Visit Diagnosis Plan: Lymphoma involving lung Discussi on: Doing weekly lab and chemo ICD-9 : 202.82 ICD-10 : C85.99 05/10/2019 Appointment: Neela Hyman WPtel: [address] [place], [place] [phone] FOLLOW UP 05/10/2019 Appointment: Neela Hyman WPtel: [address] [place], [place] [phone] he called 04/14/19-- he was at physical [...] : E87.6 03/29/2019 Appointment: Neela Hyman WPtel: [address] [place] [address] Hospital Follow Up 03/29/2019 Appointment: Neela Hyman WPtel: [address] [place], [place] [phone] [place] INJECTION 03/04/2019 Visit Diagnosis Plan: Chronic obstructiv e pulmonary disease with (acute) exacerbation Discussion: Increase SVNS with duoneb to QID Prednisone taper ICD-9 : 491.21 ICD-10 : J44.1 01/05/2019 Visit Diagnosis Plan: Other nonspecific abnormal findi ng of lung field Discussion: Referral to pulmonology--will likely need bronchoscopy--path results discussed ICD-9 : 786.6 ICD-10 : R91.8 01/05/2019 Appointment: Neela Hyman WPtel: [address] [place] [phone] [place] FOLLOW UP 01/05/2019 Patient Education: prednisone- [employer] Coupon [phone] https://www.Ravti/AlpineReplay/resources/getResource/61/[email or web address]-9j23-mh Completed 01/05/2019 Care Plan: Referral Order SNOMED-CT : 30 [id number] Pending 01/05/2019 Appointment: Neela Hyman WPtel: [address] [place] [phone] [place] CANCELED 12/21/2018 Visit Diagnosis Plan: Tinea corporis Discussion: Diflu can--hold simvastatin and fenofibrate while taking ICD-9 : 110.5 ICD-10 : B35.4 12/09/2018 Visit Diagnosis Plan: Solitary pulmonary nodule Discus esmer: CT guided needle biopsy of RUL lung mass ICD-9 : 793.11 ICD-10 : R91.1 12/09/2018 Appointment: Neela Hyman WPtel: [address] [place] [address] [place] FOLLOW UP 12/09/2018 Appointment: Gely Harp [address] [address] [place] NO SHOW 12/01/2018 Visit Diagnosis Plan: [...] : J44.9 11/24/2018 Appointment: Neela Hyman WPtel: [address] [place] [address] FOLLOW UP 11/24/2018 Care Plan: PET IMAGE FULL BODY LOINC : 4 2711-2 Pending 11/24/2018 Appointment: Neela Hyman WPtel: [address] [place] [address] [place] Consult 09/21/2018 Visit Diagnosis Plan: Pneumonia, unspecified organism Discussion: Patient clinically improved. Recent CT scan from 09/07 showed unresolved right upper lobe pneumonia. Finished another 7 days of levaquin. Will repeat CBC early next week. Order sent with patient to get done at [facility]. FU CT recommended in 4 weeks. Patient states understanding. ICD-9 : 486 ICD-10 : J18.9 09/16/2018 Appointment: Amita Henderson [address] [id number] FOLLOW UP 09/16/2018 Visit Diagnosis Plan: Pneumonia, unspecified organism Discussion: Clinically patient feels and looks much better but need CT scan of chest due to ongoing round pneumonia in association with his known lymphoma ICD-9 : 486 ICD-10 : J18.9 09/03/2018 Appointment: Neela Hyman WPtel: [id number] FOLLOW UP 09/03/2018 Care Plan: CT THORAX [...] ICD-10 : Z87.01 08/27/2018 Appointment: Amita Henderson [facility] [facility] 08/27/2018 Visit Diagnosis Plan: [...] ICD-10 : I10 08/13/2018 Appointment: Amita Henderson [facility] Explorer [id number] LM FOLLOW UP 08/13/2018 Appointment: Amita Henderson [facility] Explorer [id number] CANCELED 08/13/2018 Patient Education: prednisone- [employer] Coupon [phone] https://www.Ravti/sampleForsitec/resources/getResource/61/pa99le6c-1p01-8rx6-9v Completed 08/13/2018 Visit Diagnosis Plan: Other specified [...] ICD-10 : J18.9 08/11/2018 Appointment: Amita Henderson [facility] Campus Explorer [id number] ACUTE ILLNESS 08/11/2018 Care Plan: CHEST X-RAY 2VW FRONTAL&LATL LOINC : 84803-3 Pending 07/20/2018 Visit Diagnosis Plan: Dyspnea, unspecified Discussion: CXR- to be completed at the hospital. Will call with results and any adjustments in plan. Solumedrol 125 administered in clinic Prednisone 20 mg BID x 5 days- start tomorrow ICD-9 : 786.09 ICD-10 : R06.00 07/16/2018 Appointment: Amita Henderson [address] [place], [place] [id number] ACUTE ILLNESS 07/16/2018 Patient Education: prednisone- [employer] Coupon [phone] https://www.Ravti/samplemd/resources/getResource/61/93t1u0tt-es36-9cj9-m9 Completed 07/16/2018 Visit Diagnosis Plan: Acute bronchitis due to other sp ecified organisms Discussion: Kenalog 40 mg IM administered in clinic. Doxycycline called into [facility]. Take as directed. Continue nebulizer and Trelegy. Follow up if symptoms are not improving with treatment regimen. Patient states understanding of all instruction. ICD-9 : 466.0 ICD-10 : J20.8 07/13/2018 Appointment: Amita Henderson [address] [place], [place] [id number] ACUTE ILLNESS 07/13/2018 Patient Education: doxycycline hyclate- [employer] Cou saritha [phone] https://www.AlpineReplay.[employer]/samplemd/resources/getResource/61/5g061g76-7v1p-3124-8t Completed 07/13/2018 Care Plan: [place] : 124[address]-4 Pending 07/13/2018 Care Plan: CBC Pending 07/13/2018 Care Plan: A1C HPLC LOINC : 98657-1 Pending 07/13/2018 Visit Diagnosis Plan: Mixed hyperlipidemia [...] : I10 06/03/2018 Appointment: Neela Hyman WPtel: [facility] [facility] [facility] UP 06/03/2018 [...] ICD-10 : J44.9 05/04/2018 Appointment: Gely Harp [address] [place] [address] ACUTE ILLNESS 05/04/2018 Visit Diagnosis Plan: Localized edema Discussion: Cont inue lasix and potassium at every other day Recheck lab and fwup in 3mos Follow Up: 3 months ICD-9 : 782.3 ICD-10 : R60.0 03/03/2018 Appointment: Neela Hyman WPtel: [address] [place] [address] FOLLOW UP 03/03/2018 Patient Education: Patient Medication Summary Completed 03/03/2018 Visit Diagnosis Plan: Localized edema Discussion: Finch ge lasix and potassium to every other day Check Chem 7 in 2 weeks and fwup ICD-9 : 782.3 ICD-10 : R60.0 02/17/2018 Appointment: Neela Hyman WPtel: [address] [place], [place] [phone] FOLLOW UP 02/17/2018 Patient Education: Patient [...] : R60.0 02/10/2018 Appointment: Neela Hyman WPtel: [address] [place] [phone] [place] FOLLOW UP 02/10/2018 Patient Education: Patient [...] : L02.212 11/05/2017 Appointment: Neela Hyman WPtel: [address] [place] [phone] [place] FOLLOW UP 11/05/2017 Patient Education: Patient Medication Summary Completed 11/05/2017 Patient Education: Patient Medication Summary Completed 11/03/2017 Care Plan: COM[place] : [address]-0 Pending 11/03/2017 Care Plan: LIPID PANEL LOINC : 13275-4 Pending 11/03/2017 Care Plan: CBC Pending 11/03/2017 Care Plan: A1C HPLC LOINC : 54727-4 Pending 11/03/2017 Visit Diagnosis Plan: Allergic urticaria [...] ICD-10 : L50.0 09/09/2017 Appointment: Gely Harp [address] [place], [place] [phone] ACUTE ILLNESS 09/09/2017 Patient Education: Patient Medication [...] ICD-10 : R59.1 08/07/2017 Appointment: Gely Harp [address] [place], [place] [address] Hospital Follow Up 08/07/2017 Patient Education: Patient Medication Summary Completed 08/07/2017 Visit Diagnosis Plan: Type 2 diabetes mellitus without complications Discussion: Accuchecks daily Lab discussed Continue current meds ICD-9 : 250.00 ICD-10 : E11.9 08/04/2017 Visit Diagnosis Plan: Essential (primary) hypertension Discussion: Increase Cardizem CD to 360mg daily ICD-9 : 401.9 ICD-10 : I10 08/04/2017 Appointment: Neela Hyman WPtel: [phone] [facility] FOLLOW UP 08/04/2017 Patient Education: Patient Medication Summary Completed 08/04/2017 Patient Education: Patient Medication Summary Completed 07/31/2017 Care Plan: [place] : 86[address]-9 Pending 07/31/2017 Care Plan: ASSAY THYROID STIM HORMONE Pen ding 07/31/2017 Care Plan: LIPID PANEL LOINC : 17865-8 Pending 07/31/2017 Care Plan: CBC Pending 07/31/2017 Care Plan: A1C HPLC LOINC : 73271-4 Pending 07/31/2017 Patient Education: Patient Medication Summary Completed 06/19/2017 Patient Education: Patient Medication Summary Completed 06/09/2017 Care Plan: CT SOFT TISSUE NEC[place] : 95471-2 Pending 06/09/2017 Visit Diagnosis Plan: Acute sialoadenitis [...] ICD-10 : B02.9 06/04/2017 Appointment: Gely Harp [address] [place] [address] ACUTE ILLNESS 06/04/2017 Patient Education: Patient Medication [...] ICD-10 : B02.9 06/02/2017 Appointment: Gely Harp [address] [place] [address] ACUTE ILLNESS 06/02/2017 Patient Education: Patient Medication [...] E11.9 05/05/2017 Appointment: Neela Hyman WPtel: [phone] [facility] FOLLOW UP 05/05/2017 Patient Education: Patient Medication Summary Completed 05/05/2017 Patient Education: Patient Medication Summary Completed 05/01/2017 Care Plan: A1C HPLC [facility] : 39868-2 Pending 05/01/2017 Visit Diagnosis Plan: Chronic obstructiv [...] : H61.23 04/10/2017 Appointment: Gely Harp [address] [place], [place] [phone] ACUTE ILLNESS 04/10/2017 Patient Education: Patient Medication Summary Completed 04/10/2017 Appointment: Neela Hyman WPtel: [phone] [facility] [place] INJECTION 03/28/2017 Patient Education: Patient Medication [...] : J44.9 02/03/2017 Appointment: Neela Hyman WPtel: [address] [place], [place] [address] [place] FOLLOW UP 02/03/2017 Patient Education: Patient Medication Summary Completed 02/03/2017 Patient Education: Patient Medication Summary Completed 01/30/2017 Care Plan: [place] : [address]-1 Pending 01/30/2017 Care Plan: LIPID PANEL LOINC : 76496-5 Pending 01/30/2017 Care Plan: CBC Pending 01/30/2017 Care Plan: A1C HPLC LOINC : 15503-1 Pending 01/30/2017 Care Plan: ASSAY OF PSA [...] Neela Hyman WPtel: [facility] [facility] [address] [place] 10/29 lm [...] : J20.9 08/30/2016 Appointment: [facility]amm[facility] [facility] 08/29 rang and rang rang 08/30 [...] ICD-10 : J20.9 08/27/2016 Appointment[facility] [facility] 08/27/2016 Patient Education: Patient Medication Summary Completed 08/27/2016 Care Plan: Referral Order SNOMED-CT : 30 [id number] Pending 08/27/2016 Visit Diagnosis Plan: Type 2 [...] I10 07/02/2016 Appointment: Neela Hyman WPtel: [address] [place] [address] 07/01 rang and rang`sl FOLLOW UP 7 Patient Education: Patient Medication Summary Completed 07/02/2016 Patient Education: Patient Medication Summary Completed 06/27/2016 Care Plan: LIPID PANEL LOINC : 02644-6 Pending 06/27/2016 Care Plan: [place] : [address]-6 Pending 06/27/2016 Care Plan: A1C HPLC LOINC : 77170-3 Pending 06/27/2016 Visit Diagnosis Plan: Acute bronchitis, [...] : J20.9 06/14/2016 Appointment: Sammi Najera [address] [place], [place] [phone] FOLLOW UP 06/14/2016 Patient Education: Patient Medication [...] : J20.9 06/13/2016 Appointment: Sammi Najera [address] [place], [place] [phone] ACUTE ILLNESS 06/13/2016 Patient Education: Patient Medication Summary Completed 06/13/2016 Care Plan: CHEST X-RAY 2VW FRONTAL&LATL LOINC : 29726-5 Pending 06/13/2016 Visit Plan: Increase metoprolol to 100mg po BID BP readings and BP check in 1month 05/14/2016 Appointment: Neela Hyman WPtel: [address] [place], [place] [address] 05/13 rang and rang`sl FOLLOW UP 6 Patient Education: Patient Medication Summary Completed 05/14/2016 Visit Plan: Increase metoprolol to 50mg BID BP check in 1 week f/u BP appt 2 weeks consider musculoskeletal if pain returns 04/29/2016 Appointment: Neela Hyman WPtel: [address] [place], [place] [phone] 04/25 confimred~sl FOLLOW UP 04/29/2016 Patient Education: Patient Medication Summary Completed 04/29/2016 Visit Plan: Stat CT scan of abdomen/pelv is to look for stone Hydrate and use tramadol prn Increase metoprolol to 25mg po BID Will see urology pending CT scan results 04/22/2016 Appointment: Neela Hyman WPtel: [address] [place] [phone] 04/17 confirmed-sp ACUTE ILLNESS 04/22/2016 Patient Education: [...] flu shot 04/01/2016 Appointment: Neela Hyman WPtel: [address] [place] [phone] [place] FOLLOW UP 04/01/2016 Patient Education: Patient Medication Summary Completed 04/01/2016 Patient Education: [facility] - Saving AutoInj - 18-64 - Dynamic Heber l ID Completed 04/01/2016 Patient Education: Patient Medication Summary Completed 03/28/2016 Care Plan: A1C HPLC LOINC : 49068-3 Pending 03/28/2016 Care Plan: [place] : [address]-0 Pending 03/28/2016 Visit Plan: Lab discussed Continue curre nt meds Accuchecks daily 11/30/2015 Appointment: Neela Hyman WPtel: [address] [place], [place] [address] [place] 11/28 confirmed~sl FOLLOW UP 11/30/2015 Patient Education: Patient Medication Summary Completed 11/30/2015 Appointment: Neela Hyman WPtel: [address] [place] [phone] [place] RESCHEDULED 11/28/2015 Patient Education: Patient Medication Summary Completed 11/23/2015 Care Plan: [place] : [address]-3 Pending 11/23/2015 Care Plan: LIPID PANEL LOINC : 62952-7 Pending 11/23/2015 Care Plan: CBC Pending 11/23/2015 Care Plan: A1C HPLC LOINC : 14872-9 Pending 11/23/2015 Visit Plan: Lab discussed Acccarolyn [...] Plan: CHEST X-RAY 2VW FRONTAL&LATL LOINC : 89319-8 Ordered 08/14/2015 Visit Plan: Decadron 8mg given [...] improving as expected 08/09/2015 Appointment: [facility]ammi [facility] [address] [facility] [facility] Follow UP 08/09/2015 Patient Education: Patient Medication Summary Completed 08/09/2015 Patient Education: [facility] [place] [facility] Saving AutoInj - 18-64 - Dynamic [...] it 05/22/2015 Appointment: Neela Hyman WPtel: [address] [place] [phone] 05/17 confirmed~sl FOLLOW UP 05/22/2015 Patient Education: Patient Medication Summary Completed 05/22/2015 Patient Education: Patient Medication Summary Completed 05/15/2015 Visit Plan: Obtain EMGs done at [facility] from when fractured left arm Lab discussed Accuchecks daily 02/13/2015 Appointment: Neela Hyman WPtel: [address] [place], [place] [phone] 02/10 confrimed FOLLOW UP 02/13/2015 Patient Education: Patient Medication Summary Completed 02/13/2015 Patient Education: Patient Medication Summary Completed 02/09/2015 Visit Plan: discussed lab add fenofibrat e 134mg po daily recheck fasting lab in 3 months, CBC, CMP, Lipids, hgb AIC 11/07/2014 Appointment: Neela Hyman WPtel: [address] [place], [place] [phone] 11/04 appt confirmed cn FOLLOW UP 015 Patient Education: Patient Medication Summary Completed 11/07/2014 Patient Education: Patient Medication Summary Completed 11/03/2014 Visit Plan: Continue loratadine 10mg richard ly Notify if symptoms return 10/04/2014 Appointment: Neela Hyman WPtel: [address] [place], [place] [phone] confirmed on 10/03 at 2:42pm FOLLOW UP 09/23 Patient Education: Patient Medication Summary Completed 10/04/2014 Appointment: Neela Hyman WPtel: [address] [place] [phone] ACUTE ILLNESS 09/28/2014 Appointment: RodrigoJaylen Calisa Nguyễn WPtel: [address] [place] [address] FOLLOW UP 09/22/2014 Patient Education: Patient Medication Summary Completed 09/22/2014 Appointment: Loren Garza WPtel: [address] [place] [address] ACUTE ILLNESS 09/21/2014 Patient Education: Patient Medication Summary Completed 09/21/2014 Patient Education: [facility] - Saving AutoInj - 18+ - Dynamic Portal ID Completed 09/21/2014 Visit Plan: Lab discussed Continue daily accuchecks Continue current meds 06/28/2014 Appointment: Neela Hyman WPtel: [address] [place] [address] FOLLOW UP 06/28/2014 Patient Education: Patient Medication Summary Completed 06/28/2014 Patient Education: Patient Medication Summary Completed 06/23/2014 Appointment: Sarah Sunshine WPtel: [address] [place] [address] ACUTE ILLNESS 06/10/2014 Patient Education: Patient Medication Summary Completed 06/10/2014 Patient Education: [facility] - Saving AutoInj - 18+ - Dynamic Portal ID Completed 06/10/2014 Visit Plan: Lab discussed Continue daily accuchecks Continue current meds 03/29/2014 Appointment: Neela Hyman WPtel: [address] [place], [place] [phone] FOLLOW UP 03/29/2014 Patient Education: Patient Medication Summary Completed 03/29/2014 Patient Education: Patient Medication Summary Completed 03/23/2014 Visit Plan: Lab discussed Continue curre nt meds and accuchecks See surgery for removal of hand lesion 11/30/2013 Appointment: Neela Hyman WPtel: [address] [place], [place] [phone] 11/29 no answer FOLLOW UP 11/30/2013 Patient Education: Patient Medication Summary Completed 11/30/2013 Visit Plan: Lab discussed Continue curre nt meds 08/03/2013 Appointment: Neela Hyman WPtel: [address] [place] [address] FOLLOW UP 08/03/2013 Patient Education: Patient Medication Summary Completed 08/03/2013 Visit Plan: Lab Discussed Will continue current meds and pt will get back on diet/exercise Check lab in 4mos and fwup 04/06/2013 Appointment: Neela Hyman WPtel: [address] [place] [address] FOLLOW UP 04/06/2013 Patient Education: Patient Medication Summary Completed 04/06/2013 Visit Plan: Lab discussed Continue daily accuchecks 12/01/2012 Appointment: Neela Hyman WPtel: [address] [place] [address] 11/30 no answer FOLLOW UP 12/01/2012 Patient Education: Patient Medication Summary Completed 12/01/2012 Visit Plan: Continue current meds and da russell accuchecks Lab discussed 08/04/2012 Appointment: Neela Hyman WPtel: [address] [place] [address] FOLLOW UP 08/04/2012 Patient Education: Patient Medication Summary Completed 08/04/2012 Appointment: Neela Hyman WPtel: [address] [place] [phone] [facility] [facility] 06/01/2012 Patient Education: Patient Medication Summary Completed 06/01/2012 Appointment: Janet Jean Baptiste WPtel: [address] [place], [place] [id number] FOLLOW UP 05/29/2012 Patient Education: Patient Medication Summary Completed 05/29/2012 Visit Plan: pt states Dr. Hyman told h is to increase his Prozac dose while she was talking to her at [facility]. Discussed that pt. should not increase or decrease dosage without Dr's knowledge. Pt. will seek hearing test here in town at the hearing aid place on [address]. Discussed that ear pain is likely caused by sinus pressure. Pt. will notify if no improvement. 05/25/2012 Appointment: Janet Jean Baptiste WPtel: [address] [place] [address] ACUTE ILLNESS 05/25/2012 Patient Education: Patient Medication Summary Completed 05/25/2012 Visit Plan: Continue current meds Contin ue daily accuchecks but alternate times Increase fish oil to 3gm daily 04/07/2012 Appointment: Neela Hyman WPtel: [address] [place] [address] 04/06 FOLLOW UP 04/07/2012 Patient Education: Patient Medication Summary Completed 04/07/2012 Appointment: Janet Jean Baptiste WPtel: [address] [place] [address] ACUTE ILLNESS 12/16/2011 Patient Education: Patient Medication Summary Completed 12/16/2011 Visit Plan: Increase 12/03/2011 Appointment: Neela Hyman WPtel: [address] [place] [address] FOLLOW UP 12/03/2011 Patient Education: Patient Medication Summary Completed 12/03/2011 Visit Plan: Continue current meds Contin ue accuchecks 08/29/2011 Appointment: Neela Hyman WPtel: [address] [place], [place] [phone] FOLLOW UP 08/29/2011 Patient Education: Patient Medication Summary Completed 08/29/2011 Visit Plan: Continue current meds except restart zocor 05/30/2011 Appointment: Neela Hyman WPtel: [address] [place], [place] [phone] [place] FOLLOW UP 05/30/2011 Patient Education: Patient Medication Summary Completed 05/30/2011 Visit Plan: Continue tennis elbow strap May go back to weight-lifing--light weigts every other day 01/29/2011 Appointment: Neela Hyman WPtel: [address] [place], [place] [phone] [place] FOLLOW UP 01/29/2011 Patient Education: Patient Medication Summary Completed 01/29/2011 Visit Plan: Continue tennis elbow strap and anti-inflammatories 01/14/2011 Appointment: Neela Hyman WPtel: [address] [place], [place] [phone] FOLLOW UP 01/14/2011 Appointment: Janet Jean Baptiste WPtel: [address] [place] [address] NEW PATIENT 01/14/2011 Patient Education: Patient Medication Summary Completed 01/14/2011 Appointment: Neela Hyman WPtel: [address] [place] [address] FOLLOW UP 01/08/2011 Appointment: Neela Hyman WPtel: [address] [place] [address] FOLLOW UP 01/01/2011 Appointment: Neela Hyman WPtel: [address] [place], [place] [phone] UA 01/01/2011 Patient Education: Patient Medication Summary [...] given. 11/29/2010 Appointment: Janet Jean Baptiste WPtel: [address] [place], [place] [id number] ACUTE ILLNESS 11/29/2010 Patient Education: Patient Medication Summary Completed 11/29/2010 Visit Plan: Cont current meds Check CMP, Lipids, HbA1C 08/28/2010 Appointment: Neela Hyman WPtel: [address] [place], [place] [phone] FOLLOW UP 08/28/2010 Patient Education: Patient Medication Summary Completed 08/28/2010 Visit Plan: Cont current meds and accuch ecks Add Zocor 40mg q HS Check Lipids and HbA1C in 3mos 06/05/2010 Appointment: Neela Hyman WPtel: [address] [place], [place] [phone] [place] FOLLOW UP 06/05/2010 Patient Education: Patient Medication Summary Completed 06/05/2010 Visit Plan: Check Lipids and HbA1C 02/05/2010 Appointment: Neela Hyman WPtel: [address] [place], [place] [phone] [place] FOLLOW UP 02/05/2010 Patient Education: Patient Medication Summary Completed 02/05/2010 Visit Plan: HbA1C in 3mos. Continue Accu checks BID alternating times. Check HbA1C, CMP, Lipids 10/09/2009 Appointment: Neela Hyman WPtel: [address] [place], [place] [phone] FOLLOW UP 10/09/2009 Patient Education: Patient Medication Summary Completed 10/09/2009 Visit Plan: Saline nasal flushes prn. Ty lenol/Motrin prn headache. Notify if persists/symptoms worsening. 08/22/2009 Appointment: Neela Hyman WPtel: [address] [place], [place] [phone] ACUTE ILLNESS 08/22/2009 Patient Education: Patient Medication Summary Completed 08/22/2009 Referral: Aubrey Rand WPtel: [address] [place], [place] [id number] [place] Office will verfy his insurance then they will contact patient Completed Referral: Shahbaz Brennan WPtel: [address] [facility] 201 [id number] [place] Referral Completed Referral: Ion Levi [address] [place] [address] C&D [id number] [place] Referral Appointment Requested Referral: Ion Levi [address] [place] [address] C&D [id number] [place] Referral Appointment Requested Instructions Comment . [...] with it . Obtain EMGs done at [place] from when fractured left arm Lab discussed [...] while she was talking to her at [facility]. Discussed that pt. should not increase or decrease dosage without Dr's knowledge. Pt. will seek hearing test here in town at the hearing aid place on [address]. Discussed that ear pain is likely caused [...]
--- OUTSIDE RECORDS SUMMARY | 2019-12-09 09:13 | XMS REPORT | CCD ---
Author Author Michael Hyman D.O. Organization NEELA HYMAN DO [facility] Address [address] [place] [address] Phone Care Team Providers Care Quality Improvement Engineer Name Role Phone Neela Hyman D.O., PP Unavailable CCM Unavailable Summary Purpose Interface Exchange Insurance Providers Payer name Policy type / Coverage type Covered libertarian ID Effective Begin Date Effective End Date ABS FOR Traveler | VIP Commercial Insurance [id number] Unknown Family History Family History data not found Social History Social History Element Codes Description Effective Dates Marital status Unknown 05/30/[address]: 2215151 Former smoker quit 25 years ago 01/01/2011 Allergies, Adverse Reactions, Alerts Substance Reaction Codes Entered Date Inactivated Date Status CODEINE Unknown 08/22/2009 No Inactive Date Active Problems Condition Codes Effective Dates Condition Status Sore on toe ICD-9: 709.9 ICD-10: L98.9 07/06/2019 Active Advanced chronic obstructive pulmonary disease ICD-9: 496 ICD-10: J44.9 10/30/2016 Active 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 03/29/2019 Active Chronic obstructive pulmonary disease with (acute) exa cerbation ICD-9: 491.21 ICD-10: J44.1 07/16/2018 Active Hypokalemia ICD-9: 276.8 ICD-10: E87.6 03/29/2019 [...] chloride ER 20 mEq tablet,extended release RxNorm: 394104 1 Tablet(s) Oral two times a day 07/22/2019 10/19/2019 Active metformin 500 mg tablet RxNorm: 806236 2 Tablet(s) Oral two afshan es a day 07/13/2019 09/11/2019 Active Singulair 10 mg tablet RxNorm: 911432 TAKE ONE TABLET BY MOUTH EVERY EVENING 07/06/2019 01/02/2020 Active Reselected prescribe r from PEG MAHER to NEELA HYMAN Keflex 500 mg capsule RxNorm: 652773 1 Capsule(s) Oral three ti mes a day 07/06/2019 07/13/2019 Inactive Singulair 10 mg tablet RxNorm: 616117 TAKE ONE TABLET BY MOUTH EVERY EVENING 06/22/2019 07/05/2019 Inactive Reselected prescribe r from PEG MAHER to NEELA HYMAN Zocor 40 mg tablet RxNorm: 020895 TAKE ONE TABLET BY M OUTH EVERY NIGHT AT BEDTIME 06/21/2019 11/17/2019 Active MagOx 400 mg (241.3 mg magnesium) tablet RxNorm: 459305 1 Table t(s) Oral QD 06/21/2019 08/20/2019 Active diltiazem ER 360 mg capsule,24 hr,extended release RxNorm: 8 77203 TAKE ONE CAPSULE BY MOUTH AT BEDTIME -REPLACES 300MG 05/17/2019 11/12/2019 Active MagOx 400 mg (241.3 mg magnesium) tablet RxNorm: 083339 1 Table t(s) Oral QD 04/26/2019 06/20/2019 Inactive Lasix 40 mg tablet RxNorm: 127789 40 MG PO DAILY 04/12/2019 No Stop Da te Active Benicar 40 mg tablet RxNorm: 960319 1 Tablet(s) Oral QD 03/29/2019 Active potassium chloride ER 20 mEq tablet,extended release RxNorm: 644011 1 Tablet(s) Oral two times a day 03/29/2019 06/27/2019 Inactive potassium chloride ER 20 mEq tablet,extended release RxNorm: 612259 1 Tablet(s) Oral QD 03/29/2019 03/28/2019 Inactive Benicar 40 mg tablet RxNorm: 158956 1 Tablet(s) Oral QD 03/29/2019 Inactive MagOx 400 mg (241.3 mg magnesium) tablet RxNorm: 055401 1 Table t(s) Oral QD 03/29/2019 04/25/2019 Inactive metformin 500 mg tablet RxNorm: 607865 2 Tablet(s) Oral two afshan es a day 03/29/2019 07/12/2019 Inactive fenofibrate micronized 134 mg capsule RxNorm: 577455 TA KE ONE CAPSULE BY MOUTH EVERY DAY 03/05/2019 08/31/2019 Active duloxetine 60 mg capsule,delayed release RxNorm: 100565 1 Capsu le(s) PO QD 01/28/2019 07/26/2019 Active Trelegy Ellipta 100 mcg-62.5 mcg-25 mcg powder for inhalatio n RxNorm: 8506022 1 Puff(s) INH QD 01/06/2019 12/31/2019 Active 90 day supply prednisone 20 mg tablet RxNorm: 333539 1 Tablet(s) PO T ID for 3 days then 1 po BID for 3 days then 1 po daily for 3 days 01/05/2019 03/28/2019 Inacti ve metformin ER 1,000 mg tablet,extended release 24hr RxNorm: 1 626172 TAKE TWO TABLETS (1000MG) BY MOUTH TWO TIMES A DAY 12/22/2018 07/13/2019 Inacti ve Diflucan 100 mg tablet RxNorm: 628112 1 Tablet(s) PO QD 12/09/2018 Inactive prednisone 20 mg tablet RxNorm: 455737 1 Tablet(s) PO B ID for 4 days then 1 po daily for 4 days 11/24/2018 01/04/2019 Inactive albuterol sulfate 2.5 mg/3 mL (0.083 %) solution for n ebulization RxNorm: 095709 3 Milliliter(s) INH ONE VIAL VIA NEBULIZER EVERY 4 HOURS 07/21/2019 Inactive [AttnRPh: Saving apply/adjudicate RxGRP: SG20 RxBIN:[id number] RxPCN: ID#:[id number]] Trelegy Ellipta 100 mcg-62.5 mcg-25 mcg powder for inhalatio n RxNorm: 2916320 1 Puff(s) INH QD 10/27/2018 01/06/2019 Inactive 90 day supply metoprolol succinate ER 100 mg tablet,extended release 24 hr RxNorm: 038601 TAKE ONE TABLET BY MOUTH TWICE A DAY 10/13/2018 07/09/2019 Inactive diltiazem ER 360 mg capsule,24 hr,extended release RxNorm: 8 11999 TAKE ONE CAPSULE BY MOUTH AT BEDTIME -REPLACES 300MG 10/13/2018 04/10/2019 Inactive Trelegy Ellipta 100 mcg-62.5 mcg-25 mcg powder for inhalatio n RxNorm: 2754516 INHALE ONE PUFF ONCE DAILY 09/07/2018 10/27/2018 Inactive Levaquin 750 mg tablet RxNorm: 174443 1 Tablet(s) PO QD 09/07/2018 Inactive Levaquin 750 mg tablet RxNorm: 272865 1 Tablet(s) PO QD 09/07/2018 Inactive prednisone 20 mg tablet RxNorm: 579167 2 Tablet(s) PO QAM 08/13/2018 08/19/2018 Inactive Levaquin 500 mg tablet RxNorm: 493614 1 Tablet(s) PO QD 08/11/2018 Inactive fenofibrate micronized 134 mg capsule RxNorm: 972840 TA KE ONE CAPSULE BY MOUTH EVERY DAY 08/10/2018 02/05/2019 Inactive prednisone 20 mg tablet RxNorm: 509428 1 Tablet(s) PO BID 07/16/2018 07/20/2018 Inactive doxycycline hyclate 100 mg capsule RxNorm: 9661945 1 Capsule(s) PO BID 07/13/2018 07/22/2018 Inactive duloxetine 60 mg capsule,delayed release RxNorm: 220713 TAKE ONE CAPSULE BY MOUTH ONCE A DAY 07/08/2018 01/28/2019 Inactive Lasix 40 mg tablet RxNorm: 452835 1 TABLET(S) PO QAM 06/08/201809/05 Inactive potassium chloride ER 20 mEq tablet,extended release(p art/cryst) RxNorm: 7502633 1 TABLET(S) PO QD 06/08/2018 09/05/2018 Inactive metformin ER 1,000 mg tablet,extended release 24hr RxNorm: 1 378301 TAKE TWO TABLETS (1000MG) BY MOUTH TWO TIMES A DAY 06/01/2018 11/27/2018 Inacti ve Benicar HCT 40 mg-25 mg tablet RxNorm: 075968 TAKE ONE TABLET BY MOUTH ONCE DAILY 05/11/2018 03/28/2019 Inactive Zocor 40 mg tablet RxNorm: 458366 TAKE ONE TABLET BY M OUTH EVERY NIGHT AT BEDTIME 05/11/2018 06/20/2019 Inactive Trelegy Ellipta 100 mcg-62.5 mcg-25 mcg powder for inhalatio n RxNorm: 6035973 1 PUFF(S) INH QD 04/06/2018 07/04/2018 Inactive diltiazem ER 360 mg capsule,24 hr,extended release RxNorm: 8 84497 1 Capsule(s) PO QHS replaces 300mg dose 03/30/2018 09/25/2018 Inactive Trelegy Ellipta 100 mcg-62.5 mcg-25 mcg powder for inhalatio n RxNorm: 8698870 1 Puff(s) INH QD 02/24/2018 02/23/2018 Inactive Trelegy Ellipta 100 mcg-62.5 mcg-25 mcg powder for inhalatio n RxNorm: 0186404 1 Puff(s) INH QD 02/24/2018 02/23/2018 Inactive Trelegy Ellipta 100 mcg-62.5 mcg-25 mcg powder for inhalatio n RxNorm: 0063210 1 Puff(s) INH QD 02/24/2018 04/05/2018 Inactive Lasix 40 mg tablet RxNorm: 999868 1 Tablet(s) PO QAM 02/10/201803/11 Inactive potassium chloride ER 20 mEq tablet,extended release(p art/cryst) RxNorm: 2862406 1 Tablet(s) PO QD 02/10/2018 03/11/2018 Inactive fenofibrate micronized 134 mg capsule RxNorm: 114520 1 Capsule( s) PO QD 01/30/2018 07/28/2018 Inactive metoprolol succinate ER 100 mg tablet,extended release 24 hr RxNorm: 729619 TAKE ONE TABLET BY MOUTH TWICE A DAY 12/30/2017 09/25/2018 Inactive metformin ER 1,000 mg tablet,extended release 24hr RxNorm: 1 679480 1 Tablet(s) PO BID 11/17/2017 05/15/2018 Inactive [SAVINGS FOR NON -COVERED DRUGS -- BIN:956027, PCN: ASPROD1, Group: XXXXX, ID# [id number], Questions: . THIS IS NOT INSURANCE.] Benicar HCT 40 mg-25 mg tablet RxNorm: 639650 1 Tablet(s) PO QD 05/10/2018 Inactive [SAVINGS FOR NON-COVERED JESU GS -- BIN:492885, PCN: ASPROD1, Group: XXXXX, ID# [id number], Questions: . THIS IS NOT INSURANCE.] Bactroban 2 % topical cream RxNorm: 398039 Application TOP BID 10/2409/02/2018 Inactive clindamycin HCl 300 mg capsule RxNorm: 716499 2 Capsule(s) PO TID 0 11/05/2017 11/18/2017 Inactive duloxetine 60 mg capsule,delayed release RxNorm: 308308 Capsule(s) TAKE ONE CAPSULE BY MOUTH ONCE DAILY 09/24/2017 09/23/2017 Inactive triamcinolone acetonide 0.1 % topical ointment RxNorm: 2866924 1 TOP BID 09/09/2017 11/04/2017 Inactive Bactrim DS 800 mg-160 mg tablet RxNorm: 203400 1 Tablet(s) PO BID 0 08/07/2017 08/13/2017 Inactive metronidazole 500 mg tablet RxNorm: 265643 1 Tablet(s) PO BID 08/0708/13/2017 Inactive diltiazem ER 360 mg capsule,24 hr,extended release RxNorm: 8 27272 1 Capsule(s) PO QHS replaces 300mg dose 08/04/2017 01/30/2018 Inactive fenofibrate micronized 134 mg capsule RxNorm: 039256 1 Capsule( s) PO QD 07/21/2017 01/30/2018 Inactive Zocor 40 mg tablet RxNorm: 099884 1 Tablet(s) PO QHS 07/21/201705/10 Inactive GB duloxetine 60 mg capsule,delayed release RxNorm: 474512 Capsule(s) TAKE ONE CAPSULE BY MOUTH ONCE DAILY 06/24/2017 09/24/2017 Inactive Cleocin HCl 300 mg capsule RxNorm: 036893 2 Capsule(s) PO BID 06/0206/08/2017 Inactive acyclovir 800 mg tablet RxNorm: 702026 1 Tablet(s) PO 5x day 201706/08/2017 Inactive diltiazem ER 300 mg capsule,24 hr,extended release RxNorm: 8 61532 1 Capsule(s) PO QHS replaces 240mg dose 05/05/2017 08/03/2017 Inactive ipratropium-albuterol 0.5 mg-3 mg(2.5 mg base)/3 mL ne bulization soln RxNorm: 4222139 1 Unit Dose INH Q4H as needed 05/05/2017 01/04/2019 Inactive metformin ER 1,000 mg tablet,extended release 24hr RxNorm: 1 325659 1 Tablet(s) PO BID 04/28/2017 11/17/2017 Inactive [SAVINGS FOR NON -COVERED DRUGS -- BIN:112544, PCN: ASPROD1, Group: XXXXX, ID# [id number], Questions: . THIS IS NOT INSURANCE.] diltiazem ER (XR/XT) 240 mg capsule,extended release 2 4 hr, controlled RxNorm: 990054 TAKE ONE CAPSULE BY MOUTH EVERY DAY 04/15/2017 05/04/2017 Inact avani prednisone 20 mg tablet RxNorm: 974465 1 Tablet(s) PO QD 04/10/2017 1 06/14/2016 Inactive Breo Ellipta 200 mcg-25 mcg/dose powder for inhalation RxNor m: 0202868 1 Puff(s) INH QD 04/10/2017 02/09/2018 Inactive Breo Ellipta 200 mcg-25 mcg/dose powder for inhalation RxNor m: 3132955 1 Puff(s) INH QD 04/10/2017 04/09/2017 Inactive Levaquin 500 mg tablet RxNorm: 288761 1 Tablet(s) PO QD 04/10/2017 Inactive metoprolol succinate ER 100 mg tablet,extended release 24 hr RxNorm: 952901 TAKE ONE TABLET BY MOUTH TWICE A DAY 03/24/2017 12/18/2017 Inactive fenofibrate micronized 134 mg capsule RxNorm: 952524 1 Capsule( s) PO QD 01/16/2017 07/21/2017 Inactive Benicar HCT 40 mg-25 mg tablet RxNorm: 346824 1 Tablet(s) PO QD 11/17/2017 Inactive [SAVINGS FOR NON-COVERED JESU GS -- BIN:367935, PCN: ASPROD1, Group: XXXXX, ID# [id number], Questions: . THIS IS NOT INSURANCE.] metoprolol succinate ER 100 mg tablet,extended release 24 hr RxNorm: 831777 1 Tablet(s) PO BID 10/16/2016 03/23/2017 Inactive diltiazem ER (XR/XT) 240 mg capsule,extended release 2 4 hr, controlled RxNorm: 875495 1 Capsule(s) PO QD 10/16/2016 04/13/2017 Inactive [SAVINGS FOR NON- COVERED DRUGS -- BIN:411361, PCN: ASPROD1, Group: XXXXX, ID# XXXXXXX, Questions: . THIS IS NOT INSURANCE.] metformin ER 1,000 mg tablet,extended release 24hr RxNorm: 8 93099 1 Tablet(s) PO BID 10/16/2016 04/28/2017 Inactive [SAVINGS FOR NON -COVERED DRUGS -- BIN:841633, PCN: ASPROD1, Group: XXXXX, ID# [id number], Questions: . THIS IS NOT INSURANCE.] Zocor 40 mg tablet RxNorm: 651130 1 Tablet(s) PO QHS 10/16/201607/21 Inactive GB Singulair 10 mg tablet RxNorm: 269957 Tablet(s) 1 TABLET(S) PO QHS 08/27/2016 09/02/2018 Inactive prednisone 20 mg tablet RxNorm: 636397 1 Tablet(s) PO QD 08/27/2016 0 08/31/2016 Inactive ipratropium-albuterol 0.5 mg-3 mg(2.5 mg base)/3 mL ne bulization soln RxNorm: 6681085 1 Unit Dose INH Q4H as needed 08/27/2016 05/04/2017 Inactive metoprolol succinate ER 100 mg tablet,extended release 24 hr RxNorm: 254222 TAKE ONE TABLET BY MOUTH TWICE A DAY 08/05/2016 10/16/2016 Inactive duloxetine 60 mg capsule,delayed release RxNorm: 462618 TAKE ONE CAPSULE BY MOUTH ONCE DAILY 08/05/2016 06/24/2017 Inactive prednisone 20 mg tablet RxNorm: 155958 1 Tablet(s) PO QD 06/14/2016 0 06/18/2016 Inactive ipratropium-albuterol 0.5 mg-3 mg(2.5 mg base)/3 mL ne bulization soln RxNorm: 3117369 1 Unit Dose INH Q4H as needed 06/13/2016 08/26/2016 Inactive Levaquin 500 mg tablet RxNorm: 166548 1 Tablet(s) PO QD 06/13/2016 Inactive metoprolol succinate ER 100 mg tablet,extended release 24 hr RxNorm: 685552 1 Tablet(s) PO BID replaces 50mg dose 05/14/2016 07/12/2016 Inactive metoprolol succinate ER 50 mg tablet,extended release 24 hr RxNorm: 869738 1 Tablet(s) PO BID 04/29/2016 05/13/2016 Inactive prednisone 20 mg tablet RxNorm: 195002 1 Tablet(s) PO BID 04/22/2016 04/21/2016 Inactive prednisone 20 mg tablet RxNorm: 699389 1 Tablet(s) PO BID 04/22/2016 04/28/2016 Inactive Singulair 10 mg tablet RxNorm: 716953 Tablet(s) 1 TABLET(S) PO QHS 04/01/2016 08/26/2016 Inactive metoprolol succinate ER 25 mg tablet,extended release 24 hr RxNorm: 005629 1 Tablet(s) PO QHS for blood pressure 04/01/2016 05/13/2016 Inactive fenofibrate micronized 134 mg capsule RxNorm: 448711 TA KE ONE CAPSULE BY MOUTH DAILY 01/25/2016 01/16/2017 Inactive duloxetine 60 mg capsule,delayed release RxNorm: 453888 TAKE ONE CAPSULE BY MOUTH ONCE DAILY 01/25/2016 08/04/2016 Inactive Zocor 40 mg tablet RxNorm: 068667 TAKE ONE TABLET BY MOUTH AT B EDTIME 11/13/2015 10/16/2016 Inactive GB metformin ER 1,000 mg tablet,extended release 24hr RxNorm: 8 06808 1 Tablet(s) PO BID 10/26/2015 10/16/2016 Inactive [SAVINGS FOR NON -COVERED DRUGS -- BIN:346891, PCN: ASPROD1, Group: XXXXX, ID# [id number], Questions: . THIS IS NOT INSURANCE.] Benicar HCT 40 mg-25 mg tablet RxNorm: 655022 1 Tablet(s) PO QD 06/201511/11/2016 Inactive [SAVINGS FOR NON-COVERED JESU GS -- BIN:246136, PCN: ASPROD1, Group: XXXXX, ID# [id number], Questions: . THIS IS NOT INSURANCE.] diltiazem ER (XR/XT) 240 mg capsule,extended release,control led RxNorm: 422605 1 Capsule(s) PO QD 10/26/2015 10/15/2016 Inactive [SAVINGS FOR NO N-COVERED DRUGS -- BIN:095766, PCN: ASPROD1, Group: XXXXX, ID# XXXXXXX, Questions: . THIS IS NOT INSURANCE.] Singulair 10 mg tablet RxNorm: 046405 1 TABLET(S) PO QHS 09/18/2015 1 05/31/2015 Inactive Viagra 100 mg tablet RxNorm: 138682 1 Tablet(s) PO as needed 201511/23/2018 Inactive Singulair 10 mg tablet RxNorm: 355010 1 Tablet(s) PO QHS 08/16/2015 0 08/15/2015 Inactive Singulair 10 mg tablet RxNorm: 106731 1 Tablet(s) PO QHS 08/16/2015 0 09/14/2015 Inactive duloxetine 60 mg capsule,delayed release RxNorm: 965471 1 Capsule(s) PO QD replaces fluoxetine 08/14/2015 01/24/2016 Inactive ipratropium-albuterol 0.5 mg-3 mg(2.5 mg base)/3 mL ne bulization soln RxNorm: 3192010 1 Unit Dose INH Q4H as needed 08/14/2015 06/12/2016 Inactive prednisone 20 mg tablet RxNorm: 102549 Take 3 tabs PO o nce daily x 3 days, then 2 tabs PO once daily x 3 days and then 1 tab PO once daily x 3 days 08/09/2015 08/13/2015 Inactive Symbicort 160 mcg-4.5 mcg/actuation HFA aerosol inhaler RxNo rm: 0537595 2 Puff(s) INH BID 08/09/2015 08/13/2015 Inactive Zocor 40 mg tablet RxNorm: 113559 1 Tablet(s) PO QHS 05/23/201511/11 Inactive [AttnRPh: Saving apply/adjudicate RxGRP: SG20 RxBIN:[id number] RxPCN:HT ID#:[id number]] Benicar HCT 40 mg-25 mg tablet RxNorm: 545380 1 Tablet(s) PO QD 10/26/2015 Inactive [SAVINGS FOR NON-COVERED JESU GS -- BIN:874654, PCN: ASPROD1, Group: XXXXX, ID# XXXXXXX, Questions: . THIS IS NOT INSURANCE.] diltiazem ER (XR/XT) 240 mg capsule,extended release,control led RxNorm: 988262 1 Capsule(s) PO QD 04/24/2015 10/20/2015 Inactive [SAVINGS FOR NO N-COVERED DRUGS -- BIN:858922, PCN: ASPROD1, Group: XXXXX, ID# XXXXXXX, Questions: . THIS IS NOT INSURANCE.] fluoxetine 40 mg capsule RxNorm: 785229 1 Capsule(s) PO QD 04/24/20 15 08/13/2015 Inactive [SAVINGS FOR NON-COVERED JESU GS -- BIN:055050, PCN: ASPROD1, Group: XXXXX, ID# XXXXXXX, Questions: . THIS IS NOT INSURANCE.] Zocor 40 mg tablet RxNorm: 909174 TABLET(S) 1 TABLET(S) PO QHS 01/2505/23/2015 Inactive [AttnRPh: Saving apply/adjud icate RxGRP:SG20 RxBIN:[id number] RxPCN: ID#:[id number]] metformin ER 1,000 mg tablet,extended release 24hr RxNorm: 8 94027 1 TABLET(S) PO BID 01/29/2015 10/26/2015 Inactive [SAVINGS FOR NON -COVERED DRUGS -- BIN:211778, PCN: ASPROD1, Group: XXXXX, ID# XXXXXXX, Questions: . THIS IS NOT INSURANCE.] fenofibrate micronized 134 mg capsule RxNorm: 156681 1 CAPSULE( S) PO QD 01/23/2015 01/17/2016 Inactive fenofibrate micronized 134 mg capsule RxNorm: 888385 1 Capsule( s) PO QD 11/07/2014 01/22/2015 Inactive diltiazem ER (XR/XT) 240 mg capsule,extended release,control led RxNorm: 650252 1 Capsule(s) PO QD 10/24/2014 04/24/2015 Inactive [SAVINGS FOR NO N-COVERED DRUGS -- BIN:234493, PCN: ASPROD1, Group: XXXXX, ID# XXXXXXX, Questions: . THIS IS NOT INSURANCE.] Benicar HCT 40 mg-25 mg tablet RxNorm: 570968 1 Tablet(s) PO QD 05/201404/24/2015 Inactive [SAVINGS FOR NON-COVERED JESU GS -- BIN:746349, PCN: ASPROD1, Group: XXXXX, ID# XXXXXXX, Questions: . THIS IS NOT INSURANCE.] fluoxetine 40 mg capsule RxNorm: 953131 1 Capsule(s) PO QD 10/25/1904/24/2015 Inactive [SAVINGS FOR NON-COVERED JESU GS -- BIN:663771, PCN: ASPROD1, Group: XXXXX, ID# XXXXXXX, Questions: . THIS IS NOT INSURANCE.] azithromycin 500 mg tablet RxNorm: 521102 1 Tablet(s) PO QD 015 09/27/2014 Inactive [SAVINGS FOR NON-COVERED JESU GS -- BIN:453762, PCN: ASPROD1, Group: XXXXX, ID# XXXXXXX, Questions: . THIS IS NOT INSURANCE.] albuterol sulfate 2.5 mg/3 mL (0.083 %) solution for n ebulization RxNorm: 918235 3 Milliliter(s) INH ONE VIAL VIA NEBULIZER EVERY 4 HOURS 015 11/19/2014 Inactive [AttnRPh: Saving apply/adjudicate RxGRP: SG20 RxBIN:[id number] RxPCN: ID#:[id number]] Zocor 40 mg tablet RxNorm: 491944 TABLET(S) 1 TABLET(S ) PO QHS 1 TABLET(S) PO QHS 09/04/2014 02/21/2015 Inactive [AttnRPh: Saving apply/adjudicate RxGRP:SG20 RxBIN:[id number] RxPCN: ID#:[id number]] metformin ER 1,000 mg tablet,extended release 24hr RxNorm: 8 19862 1 Tablet(s) PO BID 08/04/2014 01/28/2015 Inactive [SAVINGS FOR NON -COVERED DRUGS -- BIN:641430, PCN: ASPROD1, Group: XXXXX, ID# XXXXXXX, Questions: . THIS IS NOT INSURANCE.] Bromfed DM 2 mg-30 mg-10 mg/5 mL syrup RxNorm: 5983805 1 -2 Teaspoon(s) PO Q4H as needed for cough 06/10/2014 06/19/2014 Inactive [SAVINGS FOR UN INSURED PATIENTS -- BIN:208570, PCN: ASPROD1, Group: AME08, ID# [id number], Process claim through [employer], for questions: . THIS IS NOT INSURANCE.] Augmentin 875 mg-125 mg tablet RxNorm: 612083 1 Tablet(s) PO Q12H 0 06/10/2014 06/19/2014 Inactive [AttnRPh: Saving apply/adjud icate RxGRP:SG20 RxBIN:[id number] RxPCN: ID#:[id number]] Zocor 40 mg tablet RxNorm: 204995 Tablet(s) 1 TABLET(S ) PO QHS 1 TABLET(S) PO QHS 05/25/2014 08/22/2014 Inactive [AttnRPh: Saving apply/adjudicate RxGRP:SG20 RxBIN:[id number] RxPCN:HT ID#:[id number]] fluoxetine 40 mg capsule RxNorm: 229791 1 Capsule(s) PO QD 04/29/20 14 10/24/2014 Inactive [AttnRPh: Saving apply/adjud icate RxGRP:SG20 RxBIN:[id number] RxPCN:HT ID#:[id number]] diltiazem ER (XR/XT) 240 mg capsule,extended release,control led RxNorm: 141655 1 Capsule(s) PO QD 04/29/2014 10/24/2014 Inactive [AttnRPh: Leonelin g apply/adjudicate RxGRP:SG20 RxBIN:[id number] RxPCN:HT ID#:[id number]] Benicar HCT 40 mg-25 mg tablet RxNorm: 119047 1 Tablet(s) PO QD 09/201310/24/2014 Inactive [AttnRPh: Saving apply/adjud icate RxGRP:SG20 RxBIN:[id number] RxPCN:HT ID#:[id number]] Zocor 40 mg tablet RxNorm: 955069 1 TABLET(S) PO QHS 1 TABLET(S ) PO QHS 03/07/2014 05/25/2014 Inactive [AttnRPh: Saving chelsie ly/adjudicate RxGRP:SG20 RxBIN:[id number] RxPCN:HT ID#:[id number]] Zocor 40 mg tablet RxNorm: 415170 1 Tablet(s) PO QHS 1 TABLET(S ) PO QHS 12/06/2013 03/05/2014 Inactive [AttnRPh: Saving chelsie ly/adjudicate RxGRP:SG20 RxBIN:[id number] RxPCN:HT ID#:[id number]] diltiazem ER (XR/XT) 240 mg capsule,extended release,control led RxNorm: 491270 1 Capsule(s) PO QD 10/25/2013 04/22/2014 Inactive [AttnRPh: Leonelin g apply/adjudicate RxGRP:SG20 RxBIN:[id number] RxPCN:HT ID#:[id number]] fluoxetine 40 mg capsule RxNorm: 747654 1 Capsule(s) PO QD 10/26/19 14 04/22/2014 Inactive [AttnRPh: Saving apply/adjud icate RxGRP:SG20 RxBIN:[id number] RxPCN:HT ID#:[id number]] Zocor 40 mg tablet RxNorm: 710275 1 Tablet(s) PO QHS 1 TABLET(S ) PO QHS 09/13/2013 12/06/2013 Inactive metformin ER 1,000 mg tablet,extended release 24hr RxNorm: 8 24992 Tablet(s) PO TAKE 1 TABLET BY MOUTH TWICE DAILY (REPLACES 500MG DOSE) 07/26/201303/2015 Inactive diltiazem ER (XR/XT) 240 mg capsule,extended release,control led RxNorm: 603904 1 Capsule(s) PO QD 05/03/2013 10/25/2013 Inactive fluoxetine 40 mg capsule RxNorm: 985247 1 Capsule(s) PO QD 05/03/20 13 10/25/2013 Inactive Benicar HCT 40 mg-25 mg tablet RxNorm: 804239 1 Tablet(s) PO QD 01/201304/29/2014 Inactive Zocor 40 mg tablet RxNorm: 086799 1 Tablet(s) PO QHS 12/10/201209/13 Inactive fluoxetine 40 mg capsule RxNorm: 891024 1 Capsule(s) PO QD 11/10/19 13 05/03/2013 Inactive diltiazem ER (XR/XT) 240 mg capsule,extended release,control led RxNorm: 503289 1 Capsule(s) PO QD 11/09/2012 05/03/2013 Inactive Benicar HCT 40 mg-25 mg tablet RxNorm: 130250 1 Tablet(s) PO QD 05/03/2013 Inactive metformin ER 1,000 mg tablet,extended release 24hr RxNorm: 8 65824 Tablet(s) PO TAKE 1 TABLET BY MOUTH TWICE DAILY (REPLACES 500MG DOSE) 08/05/201206/2013 Inactive Zocor 40 mg tablet RxNorm: 181984 1 Tablet(s) PO QHS 06/15/201212/09 Inactive fluoxetine 40 mg capsule RxNorm: 425829 1 Capsule(s) PO QD 05/15/20 12 11/08/2012 Inactive Neurontin 600 mg Tab RxNorm: 244837 1 Tablet(s) PO QHS 12/03/2011 Inactive metformin ER 1,000 mg tablet,extended release 24hr RxNorm: 8 67542 1 Tablet(s) PO BID replaces 500mg dose 12/03/2011 07/26/2013 Inactive Zocor 40 mg tablet RxNorm: 394458 1 Tablet(s) PO QHS 12/03/201106/15 Inactive fluoxetine 20 mg capsule RxNorm: 221563 1 Capsule(s) PO QD 12/03/19 12 05/24/2012 Inactive diltiazem ER (XR/XT) 240 mg capsule,extended release,control led RxNorm: 816231 1 Capsule(s) PO QD 11/15/2011 11/09/2012 Inactive Benicar HCT 40 mg-25 mg tablet RxNorm: 798950 1 Tablet(s) PO QD 02/16/2012 Inactive metformin ER 500 mg 24 hr Tab RxNorm: 962455 1 Tablet(s) PO BID 12/02/2011 Inactive Zocor 40 mg Tab RxNorm: 116292 1 Tablet(s) PO QHS 05/30/2011 11/25/19 12 Inactive fluoxetine 20 mg Cap RxNorm: 024482 1 Capsule(s) PO QD 05/28/2011 Inactive Neurontin 600 mg Tab RxNorm: 376420 1 Tablet(s) PO QHS 05/28/2011 Inactive Neurontin 600 mg Tab RxNorm: 652992 1 Tablet(s) PO QHS 02/22/201106/2011 Inactive Neurontin 600 mg Tab RxNorm: 185844 1 Tablet(s) PO QHS 01/14/2011 Inactive Neurontin 300 mg Cap RxNorm: 430885 1 Capsule(s) PO QHS 01/14/2011 Inactive Neurontin 600 mg Tab RxNorm: 542917 1 Tablet(s) PO QHS 01/14/2011 Inactive Medrol (Vipul) 4 mg Tabs in a Dose Pack RxNorm: 299178 Tablet(s) PO 0 01/02/2011 08/28/2011 Inactive as directed fluoxetine 20 mg Cap RxNorm: 682899 1 Capsule(s) PO QD 12/10/201006/2011 Inactive Zocor 40 mg Tab RxNorm: 642147 1 Tablet(s) PO QHS 12/03/2010 05/29/19 12 Inactive Neurontin 300 mg Cap RxNorm: 248499 1 Capsule(s) PO QHS 12/03/2010 Inactive Septra DS 800 mg-160 mg Tab RxNorm: 776121 1 Tablet(s) PO BID 11/2912/08/2010 Inactive diltiazem ER (XR/XT) 240 mg Continuous Release Cap RxNorm: 8 65326 1 Capsule(s) PO QD 11/20/2010 11/15/2011 Inactive Neurontin 300 mg Cap RxNorm: 422820 1 Capsule(s) PO QHS 11/06/2010 Inactive Neurontin 300 mg Cap RxNorm: 528823 1 Capsule(s) PO QHS 11/06/2010 Inactive Celebrex 200 mg Cap RxNorm: 550058 1 Capsule(s) PO BID 10/24/2010 Inactive fluoxetine 20 mg Cap RxNorm: 550030 1 Capsule(s) PO QD 06/07/201003/2011 Inactive Zocor 40 mg Tab RxNorm: 623134 1 Tablet(s) PO QHS 06/05/2010 12/02/19 11 Inactive Benicar HCT 40 mg-25 mg Tab RxNorm: 319712 1 Tablet(s) PO QD 200908/21/2011 Inactive Diltiazem 240 mg Continuous Release Cap RxNorm: 210568 1 Capsul e(s) PO QD 11/09/2009 09/02/2018 Inactive Avelox 400 mg Tab RxNorm: 429568 1 Tablet(s) PO QD 08/22/2009 010 Inactive ProAir HFA 90 mcg/actuation aerosol inhaler RxNorm: 360673 2 Puff(s) INH Q4H as needed No Start Date Active tramadol 50 mg tablet RxNorm: 211078 1-2 Tablet(s) PO TID as ne eded for pain No Start Date Active Tylenol Arthritis 650 mg Tab RxNorm: 6142993 2 Tablet(s) PO QD No Sta rt Date Active Celebrex 200 mg Cap RxNorm: 202902 1 Capsule(s) PO BID No Start Date 08/08/2015 Inactive Medrol (Vipul) 4 mg Tabs in a Dose Pack RxNorm: 559894 Tablet(s) PO N o Start Date 01/01/2011 Inactive as directed Promethazine-DM 6.25 mg-15 mg/5 mL Syrup RxNorm: 759450 1-2 Teaspoon(s) PO Q4H prn cough No Start Date 08/28/2011 Inactive Claritin 10 mg tablet RxNorm: 366255 1 Tablet(s) PO QD No Start Date 08/08/2015 Inactive Cgizkvpquq-Hlraj-ILH-James-115HC Oral RxNorm: Oral No Start Da te 03/28/2019 Inactive Breo Ellipta 200 mcg-25 mcg/dose powder for inhalation RxNor m: 1157502 1 Puff(s) INH QD No Start Date 04/09/2017 Inactive metformin 500 mg Tab RxNorm: 745832 1 Tablet(s) PO QD No Start Date 0 08/17/2011 Inactive Diltiazem 240 mg Continuous Release Cap RxNorm: 149896 1 Capsul e(s) PO BID No Start Date 11/08/2009 Inactive fluoxetine 20 mg Cap RxNorm: 543228 1 Capsule(s) PO QD No Start Date 06/07/2010 Inactive Multivitamin & Mineral Formula Oral RxNorm: Oral No Start Da te 03/28/2019 Inactive Medrol (Vipul) 4 mg tablets in a dose pack RxNorm: 278854 Tablet(s) PO as directed No Start Date 05/28/2012 Inactive Fish Oil 1,000 mg Cap RxNorm: 1 Capsule(s) PO QD No Start Date 07/2018 Inactive Nexium 40 mg Cap RxNorm: 768100 1 Capsule(s) PO QD No Start Date 07/24 Inactive fluticasone 50 mcg/actuation nasal spray,suspension RxNorm: 4452760 2 Leslie NASAL QD to each nostril No Start Date 08/03/2017 Inactive Viagra 100 mg tablet RxNorm: 092994 1 Tablet(s) PO as needed No Sta rt Date 09/17/2015 Inactive prednisone 20 mg tablet RxNorm: 036117 1 Tablet(s) PO B ID for 4 days then 1 po daily for 4 days No Start Date 11/23/2018 Inactive Benicar HCT 40 mg-25 mg Tab RxNorm: 171577 1 Tablet(s) PO QD No Sta rt [...] Date S ervice Location MICROALBUMIN URINE RANDOM 26355 MICRL MG/L 5.8 MG/L 03/2011 Unknown MICROALBUMIN URINE RANDOM 95952 XM.ALB/CRE 5.2 MG/GCR Unknown MICROALBUMIN URINE RANDOM 56148 CREAT MG/D 111 MG/DL 03/2011 Unknown MICROALBUMIN URINE RANDOM 95458 CRE/100 1.11 G/L 12/24 Unknown Procedures Procedure Codes Date FLU VACC PRSV FREE INC ANTIG 65 AND OLDER CPT-4: 46319 03/04/2019 ADMIN PNEUMOCOCCAL VACCINE CPT-4: G0009 03/04/2019 ADMIN INFLUENZA VIRUS VAC CPT-4: G0008 03/04/2019 FLU VACC PRSV FREE INC ANTIG 65 AND OLDER CPT-4: 62690 03/04/2019 PNEUMOCOCCAL VACC 23 RAYMON IM CPT-4: 89593 03/04/2019 THER/PROPH/DIAG INJ SC/IM CPT-4: 72905 08/11/2018 TRIAMCINOLONE ACET INJ NOS CPT-4: J3301 08/11/2018 DEXAMETHASONE SODIUM PHOS CPT-4: J1100 08/11/2018 THER/PROPH/DIAG INJ SC/IM CPT-4: 98242 07/16/2018 METHYLPREDNISOLONE INJECTION CPT-4: J2930 07/16/2018 INFLUENZA ASSAY W/OPTIC CPT-4: 95751 07/16/2018 THER/PROPH/DIAG INJ SC/IM CPT-4: 85234 07/13/2018 TRIAMCINOLONE ACET INJ NOS CPT-4: J3301 07/13/2018 THER/PROPH/DIAG INJ SC/IM CPT-4: 95584 05/04/2018 METHYLPREDNISOLONE INJECTION CPT-4: J2930 05/04/2018 FLU VACC PRSV FREE INC ANTIG 65 AND OLDER CPT-4: 70888 02/10/2018 PNEUMOCOCCAL VACC 13 RAYMON IM CPT-4: 73659 02/10/2018 ADMIN INFLUENZA VIRUS VAC CPT-4: G0008 02/10/2018 ADMIN PNEUMOCOCCAL VACCINE CPT-4: G0009 02/10/2018 THER/PROPH/DIAG INJ SC/IM CPT-4: 60470 09/09/2017 TRIAMCINOLONE ACET INJ NOS CPT-4: J3301 09/09/2017 ALBUTEROL NON-COMP UNIT CPT-4: J7613 04/10/2017 AIRWAY INHALATION TREATMENT CPT-4: 22925 04/10/2017 PRESCRIP TRANSMIT VIA ERX SY CPT-4: G8553 04/10/2017 FLU VACC PRSV FREE INC ANTIG 65 AND OLDER CPT-4: 12601 03/28/2017 ADMIN INFLUENZA VIRUS VAC CPT-4: G0008 03/28/2017 PRESCRIP TRANSMIT VIA ERX SY CPT-4: G8553 08/27/2016 PRESCRIP TRANSMIT VIA ERX SY CPT-4: G8553 06/14/2016 ALBUTEROL NON-COMP UNIT CPT-4: J7613 06/13/2016 AIRWAY INHALATION TREATMENT CPT-4: 66219 06/13/2016 PRESCRIP TRANSMIT VIA ERX SY CPT-4: [...] CPT-4: G8553 11/07/2014 THER/PROPH/DIAG INJ SC/IM CPT-4: 75580 09/21/2014 METHYLPREDNISOLONE INJECTION CPT-4: J2930 09/21/2014 PRESCRIP TRANSMIT VIA ERX SY CPT-4: G8553 09/21/2014 PRESCRIP TRANSMIT VIA ERX SY CPT-4: G8553 06/10/2014 URINALYSIS NONAUTO W/O SCOPE CPT-4: 91836 06/01/2012 PRESCRIP TRANSMIT VIA ERX SY CPT-4: G8553 05/25/2012 PRESCRIP TRANSMIT VIA ERX SY CPT-4: G8553 12/03/2011 CUR TOBACCO NON-USER CPT-4: G8457 05/30/2011 PRESCRIP TRANSMIT VIA ERX SY CPT-4: G8553 05/30/2011 URINALYSIS NONAUTO W/O SCOPE CPT-4: 83968 01/01/2011 URINE CULTURE/ COLONY COUNT CPT-4: 30523 01/01/2011 CUR TOBACCO NON-USER CPT-4: G8457 01/01/2011 PRESCRIP TRANSMIT VIA ERX SY CPT-4: G8553 11/29/2010 PRESCRIP TRANSMIT VIA ERX SY CPT-4: G8553 06/05/2010 Vital Signs Date Vital 07/06/2019 Blood Pressure 1: 132/70 Code: 8480-6 [...] 1: 114/68 Code: 8480-6 BMI: 43.5 Code: 05440-3 Heart Rate 1: 52 bpm Height: 6'1" [...] 1: 136/72 Code: 8480-6 BMI: 42.7 Code: 39637-9 Heart Rate 1: 60 bpm Height: 6'1" Respiratory Rate: 22 bpm SpO2: 95% Tempera ture: 37.1 (C) / 98.7 (F) Weight: 324 lbs 02/10/2018 Blood Pressure 1: 146/78 Code: 8480-6 BMI: 42.4 Code: 87841-4 Heart Rate 1: 64 bpm Height: 6'1" Respiratory Rate: 22 bpm SpO2: 95% Tempera ture: 36.5 (C) / 97.7 (F) Weight: 321 lbs 11/05/2017 Blood Pressure 1: 128/84 Code: 8480-6 BMI: 42.9 Code: 26937-5 Heart Rate 1: 52 bpm Height: 6'1" Respiratory Rate: 22 bpm SpO2: 95% Tempera ture: 36.3 (C) / 97.3 (F) Weight: 325 lbs 09/09/2017 Blood Pressure 1: 162/90 Code: 8480-6 BMI: 42.5 Code: 51412-5 Heart Rate 1: 60 bpm Height: 6'1" Respiratory Rate: 24 bpm SpO2: 95% Tempera ture: 36.4 (C) / 97.6 (F) Weight: 322 lbs 08/07/2017 Blood Pressure 1: 152/90 Code: 8480-6 BMI: 42.2 Code: 13721-3 Heart Rate 1: 60 bpm Height: 6'1" Respiratory Rate: 26 bpm SpO2: 94% Tempera ture: 36.6 (C) / 97.8 (F) Weight: 320 lbs 08/04/2017 Blood Pressure 1: 150/86 Code: 8480-6 BMI: 42.7 Code: 65548-2 Heart Rate 1: 64 bpm Height: 6'1" Respiratory Rate: 20 bpm SpO2: 94% Tempera ture: 36.3 (C) / 97.3 (F) Weight: 324 lbs 06/04/2017 Blood Pressure 1: 164/90 Code: 8480-6 Heart Rate 1: 60 bpm Respiratory Rate: 24 bpm SpO2: 94% Temperature: 36.8 (C) / 98.3 (F) 06/02/2017 Blood Pressure 1: 162/80 Code: 8480-6 BMI: 42.9 Code: 41265-8 Heart Rate 1: 66 bpm Height: 6'1" Respiratory Rate: 22 bpm SpO2: 98% Tempera ture: 36.6 (C) / 97.8 (F) Weight: 325 lbs 05/05/2017 Blood Pressure 1: 164/94 Code: 8480-6 BMI: 41.4 Code: 58574-7 Heart Rate 1: 64 bpm Height: 6'1" Respiratory Rate: 22 bpm SpO2: 95% Tempera ture: 36.4 (C) / 97.5 (F) Weight: 314 lbs 04/10/2017 Blood Pressure 1: 136/78 Code: 8480-6 BMI: 42.0 Code: 70730-6 Heart Rate 1: 76 bpm Height: 6'1" Respiratory Rate: 24 bpm SpO2: 92% Tempera ture: 35.9 (C) / 96.7 (F) Weight: 318 lbs 02/03/2017 Blood Pressure 1: 134/82 Code: 8480-6 BMI: 41.7 Code: 72831-2 Heart Rate 1: 72 bpm Height: 6'1" Respiratory Rate: 24 bpm SpO2: 95% Tempera ture: 36.1 (C) / 97.0 (F) Weight: 316 lbs 10/30/2016 Blood Pressure 1: 126/74 Code: 8480-6 BMI: 41.3 Code: 35122-8 Heart Rate 1: 68 bpm Height: 6'1" Respiratory Rate: 20 bpm Temperature: 37 .1 (C) / 98.8 (F) Weight: 313 lbs 08/30/2016 Blood Pressure 1: 146/80 Code: 8480-6 BMI: 41.7 Code: 78281-2 Heart Rate 1: 64 bpm Height: 6'1" Respiratory Rate: 24 bpm SpO2: 94% Tempera ture: 36.6 (C) / 97.8 (F) Weight: 316 lbs 08/27/2016 Blood Pressure 1: 12478 Code: 8480-6 Heart Rate 1: 66 bpm Height: 6'2" Respiratory Rate: 18 bpm SpO2: 94% Temperature: 36.6 (C) / 97.8 (F) Weight: 07/02/2016 Blood Pressure 1: 126/78 Code: 8480-6 BMI: 41.4 Code: 84056-9 Heart Rate 1: 68 bpm Height: 6'1" Respiratory Rate: 24 bpm SpO2: 94% Tempera ture: 36.6 (C) / 97.8 (F) Weight: 314 lbs 06/14/2016 Blood Pressure 1: 146/82 Code: 8480-6 Heart Rate 1: 80 bpm Respiratory Rate: 20 bpm SpO2: 95% Temperature: 37.3 (C) / 99.2 (F) 06/13/2016 Blood Pressure 1: 146/84 Code: 8480-6 BMI: 40.5 Code: 67901-8 Heart Rate 1: 66 bpm Height: 6'1" Respiratory Rate: 28 bpm SpO2: 93% Tempera ture: 35.8 (C) / 96.4 (F) Weight: 307 lbs 05/14/2016 Blood Pressure 1: 146/90 Code: 8480-6 BMI: 41.2 Code: 57977-1 Heart Rate 1: 68 bpm Height: 6'1" Respiratory Rate: 26 bpm Temperature: 36 .8 (C) / 98.2 (F) Weight: 312 lbs 04/29/2016 Blood Pressure 1: 152/90 Code: 8480-6 BMI: 41.0 Code: 41138-3 Heart Rate 1: 68 bpm Height: 6'1" Respiratory Rate: 26 bpm SpO2: 94% Tempera ture: 36.1 (C) / 96.9 (F) Weight: 311 lbs 04/22/2016 Blood Pressure 1: 152/94 Code: 8480-6 BMI: 40.9 Code: 81895-7 Heart Rate 1: 68 bpm Height: 6'1" Respiratory Rate: 24 bpm SpO2: 94% Tempera ture: 36.2 (C) / 97.2 (F) Weight: 310 lbs 04/01/2016 Blood Pressure 1: 156/78 Code: 8480-6 BMI: 40.6 Code: 84571-8 Heart Rate 1: 84 bpm Height: 6'1" Respiratory Rate: 22 bpm SpO2: 95% Tempera ture: 37.1 (C) / 98.7 (F) Weight: 308 lbs 11/30/2015 Blood Pressure 1: 142/80 Code: 8480-6 BMI: 40.5 Code: 88033-9 Heart Rate 1: 88 bpm Height: 6'1" Respiratory Rate: 22 bpm Temperature: 36 .2 (C) / 97.2 (F) Weight: 307 lbs 08/29/2015 Blood Pressure 1: 132/70 Code: 8480-6 BMI: 40.0 Code: 27268-3 Heart Rate 1: 76 bpm Height: 6'1" Respiratory Rate: 24 bpm SpO2: 96% Tempera ture: 36.7 (C) / 98.0 (F) Weight: 303 lbs 08/14/2015 Blood Pressure 1: 126/80 Code: 8480-6 BMI: 39.4 Code: 24684-7 Heart Rate 1: 92 bpm Height: 6'1" Respiratory Rate: 24 bpm SpO2: 94% Tempera ture: 37.8 (C) / 100.0 (F) Weight: 299 lbs 08/09/2015 Blood Pressure 1: 146/82 Code: 8480-6 Heart Rate 1: 82 bpm Respiratory Rate: 22 bpm SpO2: 93% Temperature: 35.9 (C) / 96.6 (F) We ight: 310 lbs 05/22/2015 Blood Pressure 1: 156/76 Code: 8480-6 BMI: 41.0 Code: 54264-3 Heart Rate 1: 100 bpm Height: 6'1" Respiratory Rate: 22 bpm Temperature: 37 .2 (C) / 98.9 (F) Weight: 311 lbs 02/13/2015 Blood Pressure 1: 166/90 Code: 8480-6 BMI: 41.2 Code: 02669-8 Heart Rate 1: 72 bpm Height: 6'1" Respiratory Rate: 24 bpm SpO2: 93% Tempera ture: 36.9 (C) / 98.5 (F) Weight: 312 lbs 11/07/2014 Blood Pressure 1: 134/70 Code: 8480-6 BMI: 40.5 Code: 63046-8 Heart Rate 1: 76 bpm Height: 6'1" Respiratory Rate: 24 bpm Temperature: 36 .9 (C) / 98.4 (F) Weight: 307 lbs 10/04/2014 Blood Pressure 1: 144/86 Code: 8480-6 BMI: 40.1 Code: 41939-8 Heart Rate 1: 76 bpm Height: 6'1" Respiratory Rate: 28 bpm Temperature: 36 .6 (C) / 97.9 (F) Weight: 304 lbs 09/22/2014 Blood Pressure 1: 142/80 Code: 8480-6 BMI: 40.0 Code: 93879-0 Heart Rate 1: 80 bpm Height: 6'1" Respiratory Rate: 22 bpm SpO2: 96% Tempera ture: 36.6 (C) / 97.8 (F) Weight: 303 lbs 09/21/2014 Blood Pressure 1: 160/66 Code: 8480-6 BMI: 40.0 Code: 78582-1 Heart Rate 1: 90 bpm Height: 6'1" Respiratory Rate: 26 bpm SpO2: 94% Tempera ture: 35.7 (C) / 96.2 (F) Weight: 303 lbs 06/28/2014 Blood Pressure 1: 132/80 Code: 8480-6 BMI: 41.0 Code: 10254-2 Heart Rate 1: 64 bpm Height: 6' Respiratory Rate: 20 bpm Temperature: 36 .7 (C) / 98.0 (F) Weight: 302 lbs 06/10/2014 Blood Pressure 1: 152/70 Code: 8480-6 BMI: 41.1 Code: 55420-6 Heart Rate 1: 76 bpm Height: 6' Respiratory Rate: 20 bpm Temperature: 36 .6 (C) / 97.8 (F) Weight: 303 lbs 03/29/2014 Blood Pressure 1: 132/78 Code: 8480-6 BMI: 40.6 Code: 23096-8 Heart Rate 1: 84 bpm Height: 6' Respiratory Rate: 22 bpm Temperature: 37 .1 (C) / 98.8 (F) Weight: 299 lbs 11/30/2013 Blood Pressure 1: 136/84 Code: 8480-6 BMI: 39.2 Code: 77421-9 Heart Rate 1: 76 bpm Height: 6' Respiratory Rate: 20 bpm Temperature: 36 .8 (C) / 98.2 (F) Weight: 289 lbs 08/03/2013 Blood Pressure 1: 144/80 Code: 8480-6 Heart Rate 1: 86 bpm Respiratory Rate: 20 bpm Temperature: 36.6 (C) / 97.8 (F) Weight: 296 lbs 04/06/2013 Blood Pressure 1: 142/90 Code: 8480-6 BMI: 40.3 Code: 89420-2 Heart Rate 1: 88 bpm Height: 6' Respiratory Rate: 20 bpm Temperature: 36 .6 (C) / 97.8 (F) Weight: 297 lbs 12/01/2012 Blood Pressure 1: 124/78 Code: 8480-6 BMI: 38.7 Code: 41359-2 Heart Rate 1: 76 bpm Height: 6' Respiratory Rate: 20 bpm Temperature: 37 .2 (C) / 98.9 (F) Weight: 285 lbs 08/04/2012 Blood Pressure 1: 128/80 Code: 8480-6 BMI: 38.2 Code: 13992-0 Heart Rate 1: 76 bpm Height: 6' Respiratory Rate: 20 bpm Temperature: 37 .0 (C) / 98.6 (F) Weight: 282 lbs 05/29/2012 Blood Pressure 1: 138/78 Code: 8480-6 BMI: 36.6 Code: 72622-6 Heart Rate 1: 66 bpm Height: 6' Temperature: 36.7 (C) / 98.1 (F) Weight: 270 lbs 05/25/2012 Blood Pressure 1: 128/72 Code: 8480-6 BMI: 39.9 Code: 28562-6 Heart Rate 1: 74 bpm Height: 6' Temperature: 36.1 (C) / 97.0 (F) Weight: 294 lbs 04/07/2012 Blood Pressure 1: 124/76 Code: 8480-6 BMI: 39.9 Code: 00600-6 Heart Rate 1: 72 bpm Height: 6' Respiratory Rate: 20 bpm Temperature: 36 .9 (C) / 98.5 (F) Weight: 294 lbs 12/16/2011 Blood Pressure 1: 128/80 Code: 8480-6 BMI: 40.8 Code: 71289-0 Heart Rate 1: 74 bpm Height: 6' Temperature: 36.6 (C) / 97.8 (F) Weight: 301 lbs 12/03/2011 Blood Pressure 1: 132/76 Code: 8480-6 BMI: 40.8 Code: 62603-2 Heart Rate 1: 68 bpm Height: 6' Respiratory Rate: 20 bpm Temperature: 36 .8 (C) / 98.2 (F) Weight: 301 lbs 08/29/2011 Blood Pressure 1: 140/68 Code: 8480-6 BMI: 40.8 Code: 24743-8 Heart Rate 1: 80 bpm Height: 6' Respiratory Rate: 20 bpm Temperature: 36 .4 (C) / 97.6 (F) Weight: 301 lbs 05/30/2011 Blood Pressure 1: 134/82 Code: 8480-6 BMI: 41.5 Code: 39697-1 Heart Rate 1: 76 bpm Height: 6' [...] 1: 126/72 Code: 8480-6 BMI: 41.2 Code: 36383-0 Heart Rate 1: 76 bpm Height: 6' [...] 1: 152/90 Code: 8480-6 BMI: 37.7 Code: 53482-7 Heart Rate 1: 92 bpm Height: 6'1" Temperature: 38.3 (C) / 101.0 (F) Weight : 286 lbs Functional Status No Functional Status data Reason For Visit Reason For Visit Effective Dates Notes cellulitis 07/06/2019 follow up 05/10/2019 follow up [...] dm Encounters Encounter Performer Location Codes Date ([id number]) OFFICE/OUTPATIENT VISIT EST Diagnosis: Sore on toe[ICD10: L98.9] Neela MURILLO [facility]endez [facility] [employer] CPT-4: 43846 07/06/2019 ([id number]) OFFICE/OUTPATIENT VISIT EST Diagnosis: Advanced chronic obstructive pulmonary disease[ICD10: J44.9] 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] Neela QURESHI Scayl [employer] CPT-4: 58966 05/10/2019 ([id number]) OFFICE/OUTPATIENT VISIT EST Diagnosis: Chronic obstructive pulmonary disease with (acute) exacerbation[ICD10: J44.1] Diagnosis: Hypokalemia[ICD10: E87.6] 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] Neela QURESHI [employer] CPT-4: 74400 03/29/2019 ([id number]) NURSE/OUTPATIENT VISIT EST Diagnosis: PNEUMOCOCCAL VACCINE[ICD10: Z23] Neela MURILLO [employer] CPT-4: 96137 03/04/2019 ([id number]) OFFICE/OUTPATIENT VISIT EST Diagnosis: Chronic obstructive pulmonary disease with (acute) exacerbation[ICD10: J44.1] Diagnosis: Other nonspecific abnormal finding of lung field[ICD10: R91.8] Neela HYMAN [facility] CPT-4: 74035 01/05/2019 ([id number]) OFFICE/OUTPATIENT VISIT EST Diagnosis: Solitary pulmonary nodule[ICD10: R91.1] 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] Diagnosis: Tinea corporis[ICD10: B35.4] Neela HYMAN [facility] CPT-4: 18991 12/09/2018 ([id number]) OFFICE/OUTPATIENT VISIT EST Diagnosis: COUGH[ICD10: R05] Diagnosis: Chronic obstructive pulmonary disease, unspecified[ICD10: J44.9] Diagnosis: Other disorders of lung[ICD10: J98.4] Diagnosis: Other nonspecific abnormal finding of lung field[ICD10: R91.8] Neela HYMAN [facility] CPT-4: 68836 11/24/2018 ([id number]) OFFICE/OUTPATIENT VISIT EST Diagnosis: Pneumonia, unspecified organism[ICD10: J18.9] [facility] C[facility]: 55130 09/16/2018 ([id number]) OFFICE/OUTPATIENT VISIT EST Diagnosis: Pneumonia, unspecified organism[ICD10: J18.9] [facility] CPT-4: 63752 09/03/2018 ([id number]) OFFICE/OUTPATIENT VISIT EST Diagnosis: Personal history of pneumonia (recurrent)[ICD10: Z87.01] Diagnosis: Cough[ICD10: R05] Diagnosis: Essential (primary) hypertension[ICD10: I10] Diagnosis: Type 2 diabetes mellitus with hyperglycemia[ICD10: E11.65] [facility] CPT-4: 49795 08/27/2018 OFFICE/OUTPATIENT VISIT EST Diagnosis: Pneumonia, unspecified organism[ICD10: J18.9] Diagnosis: Chronic obstructive pulmonary disease with (acute) exacerbation[ICD10: J44.1] Diagnosis: Other specified symptoms and signs involving the circulatory and respiratory systems[ICD10: R09.89] Diagnosis: Essential (primary) hypertension[ICD10: I10] [facility] CPT-4: 68725 08/13/2018 OFFICE/OUTPATIENT VISIT EST Diagnosis: Pneumonia, unspecified organism[ICD10: J18.9] Diagnosis: Other specified symptoms and signs involving the circulatory and respiratory systems[ICD10: R09.89] Amita HYMAN DO [facility] CPT-4: 74365 08/11/2018 ([id number]) OFFICE/OUTPATIENT VISIT EST Diagnosis: Dyspnea, unspecified[ICD10: R06.00] Diagnosis: Chronic obstructive pulmonary disease with (acute) exacerbation[ICD10: J44.1] Diagnosis: Pneumonia, unspecified organism[ICD10: J18.9] Amita MIRZALINE Octavio HYMAN DO [facility] CPT-4: 36097 07/16/2018 ([id number]) OFFICE/OUTPATIENT VISIT EST Diagnosis: Acute bronchitis due to other specified organisms[ICD10: J20.8] Diagnosis: Cough[ICD10: R05] Amita HYMAN [facility] T-4: 53834 07/13/2018 ([id number]) OFFICE/OUTPATIENT VISIT EST Diagnosis: Essential (primary) hypertension[ICD10: I10] Diagnosis: Chronic obstructive pulmonary disease, unspecified[ICD10: J44.9] Diagnosis: Type 2 diabetes mellitus with hyperglycemia[ICD10: E11.65] Diagnosis: Mixed hyperlipidemia[ICD10: E78.2] Neela Sergemelany STERLING Octavio ZHANG [facility] CPT-4: 02477 06/03/2018 ([id number]) OFFICE/OUTPATIENT VISIT EST Diagnosis: Chronic obstructive pulmonary disease, unspecified[ICD10: J44.9] Gely MIRZALINE Octavio HYMAN [facility] CPT-4: 14853 05/04/2018 ([id number]) OFFICE/OUTPATIENT VISIT EST Diagnosis: Essential (primary) hypertension[ICD10: I10] Diagnosis: Localized edema[ICD10: R60.0] Neela ANNQUELINE Octavio HYMAN [facility] CPT-4: 40051 03/03/2018 ([id number]) OFFICE/OUTPATIENT VISIT EST Diagnosis: Localized edema[ICD10: R60.0] Neela MURILLO SMendez HYMAN [facility] CPT-4: 77791 02/17/2018 ([id number]) OFFICE/OUTPATIENT VISIT EST Diagnosis: FLU VACCINE[ICD10: Z23] Diagnosis: PNEUMOCOCCAL VACCINE[ICD10: Z23] Diagnosis: Type 2 diabetes mellitus without complications[ICD10: E11.9] Diagnosis: Mixed hyperlipidemia[ICD10: E78.2] Diagnosis: Essential (primary) hypertension[ICD10: I10] Diagnosis: Localized edema[ICD10: R60.0] Diagnosis: Chronic obstructive pulmonary disease, unspecified[ICD10: J44.9] Neela HYMAN [facility] CPT-4: 94295 02/10/2018 ([id number]) OFFICE/OUTPATIENT VISIT EST Diagnosis: Type 2 diabetes mellitus with hyperglycemia[ICD10: E11.65] Diagnosis: Mixed hyperlipidemia[ICD10: E78.2] Diagnosis: Essential (primary) hypertension[ICD10: I10] Diagnosis: Chronic obstructive pulmonary disease, unspecified[ICD10: J44.9] Diagnosis: Cutaneous abscess of back [any part, except buttock][ICD10: L02.212] Neela HYMAN [facility] CPT-4: 87486 11/05/2017 ([id number]) OFFICE/OUTPATIENT VISIT EST Diagnosis: Allergic urticaria[ICD10: L50.0] Gely HYMAN [facility] CPT-4: 06575 09/09/2017 ([id number]) OFFICE/OUTPATIENT VISIT EST Diagnosis: Generalized enlarged lymph nodes[ICD10: R59.1] Diagnosis: Acute gastritis without bleeding[ICD10: K29.00] Gely HYMAN [facility] CPT-4: 23111 08/07/2017 ([id number]) OFFICE/OUTPATIENT VISIT EST Diagnosis: Type 2 diabetes mellitus without complications[ICD10: E11.9] Diagnosis: Mixed hyperlipidemia[ICD10: E78.2] Diagnosis: Essential (primary) hypertension[ICD10: I10] Neela HYMAN [facility] CPT-4: 30336 08/04/2017 ([id number]) OFFICE/OUTPATIENT VISIT EST Diagnosis: Zoster without complications[ICD10: B02.9] Diagnosis: Acute sialoadenitis[ICD10: K11.21] Gely HYMAN [facility] CPT-4: 34272 06/04/2017 OFFICE/OUTPATIENT VISIT EST Diagnosis: Zoster without complications[ICD10: B02.9] Diagnosis: Acute sialoadenitis[ICD10: K11.21] Gely HYMAN [facility] CPT-4: 13296 06/02/2017 ([id number]) OFFICE/OUTPATIENT VISIT EST Diagnosis: Type 2 diabetes mellitus without complications[ICD10: E11.9] Diagnosis: Mixed hyperlipidemia[ICD10: E78.2] Diagnosis: Essential (primary) hypertension[ICD10: I10] Diagnosis: Chronic obstructive pulmonary disease, unspecified[ICD10: J44.9] Neela MURILLO Octavio ZHANG [facility] CPT-4: 50058 05/05/2017 OFFICE/OUTPATIENT VISIT EST Diagnosis: Chronic obstructive pulmonary disease with acute lower respiratory infection[ICD10: J44.0] Diagnosis: Impacted cerumen, bilateral[ICD10: H61.23] Gely HYMAN [facility] CPT-4: 45117 04/10/2017 ([id number]) OFFICE/OUTPATIENT VISIT EST Diagnosis: FLU VACCINE[ICD10: Z23] Neela MURILLO Octavio BUI [facility] CPT-4: 04894 03/28/2017 ([id number]) OFFICE/OUTPATIENT VISIT EST Diagnosis: Type 2 diabetes mellitus without complications[ICD10: E11.9] Diagnosis: Mixed hyperlipidemia[ICD10: E78.2] Diagnosis: Essential (primary) hypertension[ICD10: I10] Diagnosis: Chronic obstructive pulmonary disease, unspecified[ICD10: J44.9] Neela MURILLO Octavio ZHANG [facility] CPT-4: 65690 02/03/2017 ([id number]) OFFICE/OUTPATIENT VISIT EST Diagnosis: Type 2 diabetes mellitus with hyperglycemia[ICD10: E11.65] Diagnosis: Mixed hyperlipidemia[ICD10: E78.2] Diagnosis: Essential (primary) hypertension[ICD10: I10] Diagnosis: Chronic obstructive pulmonary disease, unspecified[ICD10: J44.9] Neela MURILLO JulissaMendez [facility] CPT-4: 59417 10/30/2016 ([id number]) NO CHARGE Diagnosis: Acute bronchitis, unspecified[ICD10: J20.9] Sammi HYMAN DO [facility] CPT-4: 28589 08/30/2016 ([id number]) OFFICE/OUTPATIENT VISIT EST Diagnosis: Acute bronchitis, unspecified[ICD10: J20.9] Diagnosis: Other seasonal allergic rhinitis[ICD10: J30.2] Sammi HYMAN DO [facility] CPT-4: 02809 08/27/2016 ([id number]) OFFICE/OUTPATIENT VISIT EST Diagnosis: Type 2 diabetes mellitus without complications[ICD10: E11.9] Diagnosis: Mixed hyperlipidemia[ICD10: E78.2] Diagnosis: Essential (primary) hypertension[ICD10: I10] Neela HYMAN DO [facility] CPT-4: 21973 07/02/2016 ([id number]) OFFICE/OUTPATIENT VISIT EST Diagnosis: Acute bronchitis, unspecified[ICD10: J20.9] Sammi HYMAN [facility] CPT-4: 23238 06/14/2016 ([id number]) OFFICE/OUTPATIENT VISIT EST Diagnosis: Acute bronchitis, unspecified[ICD10: J20.9] Sammi HYMAN DO [facility] CPT-4: 07915 06/13/2016 ([id number]) OFFICE/OUTPATIENT VISIT EST Diagnosis: Essential (primary) hypertension[ICD10: I10] Neela HYMAN DO [facility] CPT-4: 26775 05/14/2016 ([id number]) OFFICE/OUTPATIENT VISIT EST Diagnosis: Essential (primary) hypertension[ICD10: I10] Neela HYMAN DO [facility] CPT-4: 46646 04/29/2016 ([id number]) OFFICE/OUTPATIENT VISIT EST Diagnosis: Unspecified abdominal pain[ICD10: R10.9] Diagnosis: Left lower quadrant pain[ICD10: R10.32] Diagnosis: Left upper quadrant pain[ICD10: R10.12] Diagnosis: Essential (primary) hypertension[ICD10: I10] Neela HYMAN [facility] CPT-4: 02254 04/22/2016 ([id number]) OFFICE/OUTPATIENT VISIT EST Diagnosis: Type 2 diabetes mellitus without complications[ICD10: E11.9] Diagnosis: Mixed hyperlipidemia[ICD10: E78.2] Diagnosis: Essential (primary) hypertension[ICD10: I10] Neela HYMAN DO [facility] CPT-4: 00649 04/01/2016 ([id number]) OFFICE/OUTPATIENT VISIT EST Diagnosis: Type 2 diabetes mellitus with hyperglycemia[ICD10: E11.65] Diagnosis: Mixed hyperlipidemia[ICD10: E78.2] Diagnosis: Essential (primary) hypertension[ICD10: I10] Neela HYMAN DO [facility] CPT-4: 72365 11/30/2015 ([id number]) OFFICE/OUTPATIENT VISIT EST Diagnosis: Type 2 diabetes mellitus with diabetic neuropathy, unspecified[ICD10: E11.40] Diagnosis: Essential (primary) hypertension[ICD10: I10] Diagnosis: Mixed hyperlipidemia[ICD10: E78.2] Neela STERLING Octavio HYMAN [facility] CPT-4: 71024 08/29/2015 ([id number]) OFFICE/OUTPATIENT VISIT EST Diagnosis: COUGH[ICD10: R05] Diagnosis: Wheezing[ICD10: R06.2] Diagnosis: Type 2 diabetes mellitus with diabetic neuropathy, unspecified[ICD10: E11.40] Neela Orendhao MIRZANEELA Octavio HYMAN DO [facility] CPT-4: 49701 08/14/2015 ([id number]) OFFICE/OUTPATIENT VISIT EST Diagnosis: Other seasonal allergic rhinitis[ICD10: J30.2] Diagnosis: Dyspnea, unspecified[ICD10: R06.00] Diagnosis: Wheezing[ICD10: R06.2] Sammi ANNQUELINE Octavio HYMAN DO [facility] CPT-4: 68082 08/09/2015 ([id number]) OFFICE/OUTPATIENT VISIT EST Diagnosis: Essential (primary) hypertension[ICD10: I10] Diagnosis: Type 2 diabetes mellitus with hyperglycemia[ICD10: E11.65] Diagnosis: Mixed hyperlipidemia[ICD10: E78.2] Neela STERLING Octavio HYMAN [facility] CPT-4: 33710 05/22/2015 ([id number]) OFFICE/OUTPATIENT VISIT EST Diagnosis: DM W/O COMPLICATION TYPE II[ICD9: 250.00] Diagnosis: - I - HYPERTENSION[ICD9: 401.9] Diagnosis: - I - HYPERLIPIDEMIA NEC/NOS[ICD9: 272.4] Diagnosis: Left hand paresthesia[ICD9: 782.0] Neela Sergemelany STERLING Octavio HYMAN [facility] CPT-4: 87282 02/13/2015 ([id number]) OFFICE/OUTPATIENT VISIT EST Diagnosis: HYPERLIPIDEMIA NEC/NOS[ICD9: 272.4] Diagnosis: DM W/O COMPLICATION TYPE II[ICD9: 250.00] Neela Sergemelany NEELA [facility]Mendez [facility] CPT-4: 79429 11/07/2014 ([id number]) OFFICE/OUTPATIENT VISIT EST Diagnosis: ALLERGIC RHINITIS[ICD9: 477.9] Diagnosis: WHEEZING[ICD9: 786.07] Neela Valentineushahao MIRZANEELA JulissaMendez [facility] CPT-4: 51927 10/04/2014 ([id number]) OFFICE/OUTPATIENT VISIT EST Diagnosis: BRONCHITIS, ACUTE[ICD9: 466.0] Diagnosis: WHEEZING[ICD9: 786.07] Loren WallaceNerisakosua MIRZALINE JulissaMendez ABY Duarte [facility] CPT-4: 48676 09/22/2014 ([id number]) OFFICE/OUTPATIENT VISIT EST Diagnosis: DYSPNEA[ICD9: 786.09] Diagnosis: WHEEZING[ICD9: 786.07] Diagnosis: Arrhythmia[ICD9: 427.9] Loren WallaceNerisakosua MIRZALINE JulissaMendez [facility] CPT-4: 08602 09/21/2014 ([id number]) OFFICE/OUTPATIENT VISIT EST Diagnosis: DM W/O COMPLICATION TYPE II, 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] Diagnosis: - I - HYPERLIPIDEMIA NEC/NOS[ICD9: 272.4] Diagnosis: - I - HYPERTENSION[ICD9: 401.9] Neela Sergemelany ANNNEELA JulissaMendez [facility] CPT-4: 53944 06/28/2014 OFFICE/OUTPATIENT VISIT EST Diagnosis: SINUSITIS, ACUTE[ICD9: 461.9] Diagnosis: OTITIS MEDIA NOS[ICD9: 382.9] Sarah MIRZALINE S. ORENDER [facility] CPT-4: 19119 06/10/2014 ([id number]) OFFICE/OUTPATIENT VISIT EST Diagnosis: DM W/O COMPLICATION TYPE II[ICD9: 250.00] Diagnosis: - I - HYPERLIPIDEMIA NEC/NOS[ICD9: 272.4] Diagnosis: - I - HYPERTENSION[ICD9: 401.9] Neela HYMAN [facility] CPT-4: 57932 03/29/2014 ([id number]) OFFICE/OUTPATIENT VISIT EST Diagnosis: DM W/O COMPLICATION TYPE II[ICD9: 250.00] Diagnosis: - I - HYPERTENSION[ICD9: 401.9] Diagnosis: - I - HYPERLIPIDEMIA NEC/NOS[ICD9: 272.4] Diagnosis: Hand lesion[ICD9: 709.9] Neela MIRZALINE Octavio MADRIGAL [facility] CPT-4: 79987 11/30/2013 ([id number]) OFFICE/OUTPATIENT VISIT EST Diagnosis: DM W/O COMPLICATION TYPE II[ICD9: 250.00] Diagnosis: HYPERLIPIDEMIA NEC/NOS[ICD9: 272.4] Diagnosis: HYPERTENSION[ICD9: 401.9] [facility] 16827 08/03/2013 ([id number]) OFFICE/OUTPATIENT VISIT EST Diagnosis: DM W/O COMPLICATION TYPE II, 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] Diagnosis: HYPERTENSION[ICD9: 401.9] Diagnosis: HYPERLIPIDEMIA NEC/NOS[ICD9: 272.4] Neela Sergemelany GREGORIO Octavio [facility] CPT-4: 27084 04/06/2013 ([id number]) OFFICE/OUTPATIENT VISIT EST Diagnosis: DM W/O COMPLICATION TYPE II[ICD9: 250.00] Diagnosis: HYPERLIPIDEMIA NEC/NOS[ICD9: 272.4] Diagnosis: HYPERTENSION[ICD9: 401.9] Neelasabina MIRZALINE Octavio VASQUEZ [facility] CPT-4: 48713 12/01/2012 ([id number]) OFFICE/OUTPATIENT VISIT EST Diagnosis: DM W/O COMPLICATION TYPE II[ICD9: 250.00] Diagnosis: HYPERTENSION[ICD9: 401.9] Diagnosis: HYPERLIPIDEMIA NEC/NOS[ICD9: 272.4] Neela VALENTINENDHAO [facility] CPT-4: 65712 08/04/2012 ([id number]) OFFICE/OUTPATIENT VISIT EST Diagnosis: URINARY FREQUENCY[ICD9: 788.41] Neela HYMAN [facility] CPT-4: 51548 06/01/2012 OFFICE/OUTPATIENT VISIT EST Diagnosis: Agitation[ICD9: 307.9] Diagnosis: Frequent urination[ICD9: 788.41] Janet [facility] CPT-4: 30223 05/29/2012 OFFICE/OUTPATIENT VISIT EST Diagnosis: SINUSITIS, ACUTE[ICD9: 461.9] Diagnosis: OTALGIA[ICD9: 388.70] Neela [facility] CPT-[facility]: 55499 05/25/2012 OFFICE/OUTPATIENT VISIT EST Diagnosis: DM W/O COMPLICATION TYPE II, 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] Diagnosis: HYPERTENSION[ICD9: 401.9] Diagnosis: HYPERLIPIDEMIA NEC/NOS[ICD9: 272.4] Neela [facility] CPT-4: 62747 04/07/2012 OFFICE/OUTPATIENT VISIT EST Diagnosis: FINGER INJURY[ICD9: 959.5] Janet REYNA [facility] CPT-4: 61520 12/16/2011 ([id number]) OFFICE/OUTPATIENT VISIT EST Diagnosis: DM W/O COMPLICATION TYPE II, 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] Diagnosis: HYPERTENSION[ICD9: 401.9] Diagnosis: HYPERLIPIDEMIA NEC/NOS[ICD9: 272.4] Neelasabina HYMAN [facility] CPT-4: 50432 12/03/2011 ([id number]) OFFICE/OUTPATIENT VISIT EST Diagnosis: DM W/O COMPLICATION TYPE II[ICD9: 250.00] Diagnosis: HYPERLIPIDEMIA NEC/NOS[ICD9: 272.4] Diagnosis: HYPERTENSION[ICD9: 401.9] Neelasabina VALENTINE [facility] CPT-4: 35587 08/29/2011 OFFICE/OUTPATIENT VISIT EST Diagnosis: DM W/O COMPLICATION TYPE II[ICD9: 250.00] Diagnosis: HYPERLIPIDEMIA NEC/NOS[ICD9: 272.4] Diagnosis: HYPERTENSION[ICD9: 401.9] Neela VALENTINE NDER DO [facility] CPT-4: 30006 05/30/2011 OFFICE/OUTPATIENT VISIT EST Diagnosis: SKIN SENSATION DISTURB[ICD9: 782.0] Neela GREGORIO S. ORENDER DO [facility] CPT-4: 98295 01/29/2011 OFFICE/OUTPATIENT VISIT EST Diagnosis: SKIN SENSATION DISTURB[ICD9: 782.0] Neela GREGORIO S. ORENDER DO [facility] CPT-4: 73087 01/14/2011 OFFICE/OUTPATIENT VISIT EST Neela MURILLO SMendez ORE NDER DO [facility] CPT- 4: 08513 01/01/2011 OFFICE/OUTPATIENT VISIT EST Neela VALENTINE NDER DO [facility] CPT- 4: 06548 11/29/2010 ([id number]) OFFICE/OUTPATIENT VISIT EST Neela Oreushahao HORAN S. ORENDER DO [facility] CPT-4: 35951 08/28/2010 ([id number]) OFFICE/OUTPATIENT VISIT, EST Neeladano WILDE S. ORENDER DO [facility] CPT-4: 39189 06/05/2010 ([id number]) OFFICE/OUTPATIENT VISIT, EST Neeladano WILDE S. ORENDER DO [facility] CPT-4: 83959 02/05/2010 ([id number]) OFFICE/OUTPATIENT VISIT, EST Neela WILDE S. ORENDER DO [facility] CPT-4: 71032 10/09/2009 ([id number]) OFFICE/OUTPATIENT VISIT, EST Neela WILDE S. ORENDER DO [facility] CPT-4: 26914 08/22/2009 Plan of Care Planned Activity Notes Codes Status Date Visit Diagnosis Plan: Sore on toe Discussion: Keep farhat an/dry Keflex Notify if worsens ICD-9 : 709.9 ICD-10 : L98.9 07/06/2019 Appointment: Neela [facility] [phone] [facility] [facility] 07/06/2019 Patient Education: Abdoulaye Blue [id number] https://www.[employer]/sampleFusion[employer]orm/resources/getResource/61/[email or web address] Completed 07/06/2019 Visit Diagnosis Plan: Advanced chronic obstructive pul monary disease Discussion: Continue oxygen and pulmonary rehab Follow Up: 3 months ICD-9 : 496 ICD-10 : J44.9 05/10/2019 Visit Diagnosis Plan: Lymphoma involving lung Discussi on: Doing weekly lab and chemo ICD-9 : 202.82 ICD-10 : C85.99 05/10/2019 Appointment: Neela Hymantel: [address] [place], [place] [phone] FOLLOW UP 05/10/2019 Appointment: Neela Hymantel: [address] [place], [place] [phone] he called 04/14/19-- he was at physical [...] ICD-10 : E87.6 03/29/2019 Appointment: Neela Hymantel: [address] [place], [place] [phone] Hospital Follow Up 03/29/2019 Appointment: Neela Hyman WPtel: [address] [place], [place] [phone] [place] INJECTION 03/04/2019 Visit Diagnosis Plan: Chronic obstructiv e pulmonary disease with (acute) exacerbation Discussion: Increase SVNS with duoneb to QID Prednisone taper ICD-9 : 491.21 ICD-10 : J44.1 01/05/2019 Visit Diagnosis Plan: Other nonspecific abnormal findi ng of lung field Discussion: Referral to pulmonology--will likely need bronchoscopy--path results discussed ICD-9 : 786.6 ICD-10 : R91.8 01/05/2019 Appointment: Neela Hyman WPtel: [facility] [facility] FOLLOW [facility] 01/05/2019 Patient Education: prednisone- OptimizeRX Coupon [id number] https://www.[employer] Mind/[employer]/resources/getResource/61/[email or web address]-eu Completed 01/05/2019 Care Plan: Referral Order SNOMED-CT : 30 [id number] Pending 01/05/2019 Appointment: Neela Hyman WPtel: [facility] [place] CANCELED 12/21/2018 Visit Diagnosis Plan: Tinea corporis Discussion: Diflu can--hold simvastatin and fenofibrate while taking ICD-9 : 110.5 ICD-10 : B35.4 12/09/2018 Visit Diagnosis Plan: Solitary pulmonary nodule Discus esmer: CT guided needle biopsy of RUL lung mass ICD-9 : 793.11 ICD-10 : R91.1 12/09/2018 Appointment: Neela Hyman WPtel: [facility] [facility] FOLLOW UP 12/09/2018 Appointment: Gely Harp [address] [place] [address] NO SHOW 12/01/2018 Visit Diagnosis Plan: Other [...] : J44.9 11/24/2018 Appointment: Neela Hyman WPtel: [address] [place] [address] [place] FOLLOW UP 11/24/2018 Care Plan: PET IMAGE FULL BODY LOINC : 4 2711-2 Pending 11/24/2018 Appointment: Neela Hyman WPtel: [address] [place] [address] [place] Consult 09/21/2018 Visit Diagnosis Plan: Pneumonia, unspecified organism Discussion: Patient clinically improved. Recent CT scan from 09/07 showed unresolved right upper lobe pneumonia. Finished another 7 days of levaquin. Will repeat CBC early next week. Order sent with patient to get done at [facility]. FU CT recommended in 4 weeks. Patient states understanding. ICD-9 : 486 ICD-10 : J18.9 09/16/2018 Appointment: Amita Henderson [address] [place] [address] FOLLOW UP 09/16/2018 Visit Diagnosis Plan: Pneumonia, unspecified organism Discussion: Clinically patient feels and looks much better but need CT scan of chest due to ongoing round pneumonia in association with his known lymphoma ICD-9 : 486 ICD-10 : J18.9 09/03/2018 Appointment: Neela Hyman WPtel: [address] [place] [address] [place] FOLLOW UP 09/03/2018 Care Plan: CT THORAX W/O DYE LOINC : 473 66-0 Pending 09/03/2018 Visit Diagnosis Plan: Essential (primary) hypertension Discussion: Stable on diltiazem. benicar Toprol. Had ECHO last week. Requesting copies [...] ICD-10 : Z87.01 08/27/2018 Appointment: Amita Henderson [facility] [employer] [facility] [place] FOLLOW UP 08/27/2018 Visit Diagnosis Plan: [...] ICD-10 : I10 08/13/2018 Appointment: Amita Henderson [id number] FOLLOW UP 08/13/2018 Appointment: Amita Henderson [facility] Lashay [facility] CANCELED 08/13/2018 Patient Education: prednisone- OptimizeRX Coupon [phone] https://www.[employer]/samplemd/resources/getResource/61/[email or web address] Completed 08/13/2018 Visit Diagnosis Plan: Other specified [...] ICD-10 : J18.9 08/11/2018 Appointment: Amita Henderson [facility] [employer] [address] ACUTE ILLNESS 08/11/2018 Care Plan: CHEST X-RAY 2VW FRONTAL&LATL LOINC : 47534-1 Pending 07/20/2018 Visit Diagnosis Plan: Dyspnea, unspecified Discussion: CXR- to be completed at the hospital. Will call with results and any adjustments in plan. Solumedrol 125 administered in clinic Prednisone 20 mg BID x 5 days- start tomorrow ICD-9 : 786.09 ICD-10 : R06.00 07/16/2018 Appointment: Amita Henderson [facility] [employer] [id number] ACUTE ILLNESS 07/16/2018 Patient Education: prednisone- OptimizeRX Coupon [id number] https://www.[employer] Mind/samplemd/resources/getResource/61/[email or web address]-[email or web address]-[email or web address] Completed 07/16/2018 Visit Diagnosis Plan: Acute bronchitis due to other sp ecified organisms Discussion: Kenalog 40 mg IM administered in clinic. Doxycycline called into [facility]. Take as directed. Continue nebulizer and Trelegy. Follow up if symptoms are not improving with treatment regimen. Patient states understanding of all instruction. ICD-9 : 466.0 ICD-10 : J20.8 07/13/2018 Appointment: Amita Henderson [facility] [employer] [id number] ACUTE ILLNESS 07/13/2018 Patient Education: doxycycline hyclate- OptimizeRX Cou saritha [id number] https://www.[employer]/samplemd/resources/getResource/61/[email or web address]-1892-6m Completed 07/13/2018 Care Plan: [place] : [address]-3 Pending 07/13/2018 Care Plan: CBC Pending 07/13/2018 Care Plan: A1C HPLC LOINC : 67221-4 Pending 07/13/2018 Visit Diagnosis Plan: Mixed hyperlipidemia [...] : I10 06/03/2018 Appointment: Neela Hyman WPtel: [address] [place] [address] [place] FOLLOW UP 06/03/2018 Visit Diagnosis Plan: [...] ICD-10 : J44.9 05/04/2018 Appointment: Gely Harp [address] [place] [address] ACUTE ILLNESS 05/04/2018 Visit Diagnosis Plan: Localized edema Discussion: Cont inue lasix and potassium at every other day Recheck lab and fwup in 3mos Follow Up: 3 months ICD-9 : 782.3 ICD-10 : R60.0 03/03/2018 Appointment: Neela Hyman WPtel: [address] [place], [place] [phone] [place] FOLLOW UP 03/03/2018 Patient Education: Patient Medication Summary Completed 03/03/2018 Visit Diagnosis Plan: Localized edema Discussion: Finch ge lasix and potassium to every other day Check Chem 7 in 2 weeks and fwup ICD-9 : 782.3 ICD-10 : R60.0 02/17/2018 Appointment: Ne[facility]Ptel[facility] [address] [facility] [facility] 02/17/2018 Patient Education: Patient Medication [...] R60.0 02/10/2018 Appointment: Neela Hyman WPtel: [phone] [facility] [facility] 02/10/2018 Patient Education: Patient Medication [...] Hyman WPtel: [address] [facility] FOLLOW UP 11/05/2017 Patient Education: Patient Medication Summary Completed 11/05/2017 Patient Education: Patient Medication Summary Completed 11/03/2017 Care Plan: [place] : [address]-0 Pending 11/03/2017 Care Plan: LIPID PANEL LOINC : 61437-6 Pending 11/03/2017 Care Plan: CBC Pending 11/03/2017 Care Plan: A1C HPLC LOINC : 79355-7 Pending 11/03/2017 Visit Diagnosis Plan: Allergic urticaria [...] : L50.0 09/09/2017 Appointment: Gely Harp [address] [place], [place] [phone] ACUTE ILLNESS 09/09/2017 Patient Education: Patient Medication Summary Completed 09/09/2017 Visit Diagnosis Plan: Acute gastritis without bleeding Discussion: rajni reyes sent out to cover for diverticulitis since [...] : R59.1 08/07/2017 Appointment: Gely Harp [address] [facility] [place] [address] Follow Up 08/07/2017 Patient Education: Patient Medication Summary Completed 08/07/2017 Visit Diagnosis Plan: Type 2 diabetes mellitus without complications Discussion: Accuchecks daily Lab discussed Continue current meds ICD-9 : 250.00 ICD-10 : E11.9 08/04/2017 Visit Diagnosis Plan: Essential (primary) hypertension Discussion: Increase Cardizem CD to 360mg daily ICD-9 : 401.9 ICD-10 : I10 08/04/2017 Appointment: Neela Hyman WPtel: [facility] FOLLOW UP 08/04/2017 Patient Education: Patient Medication Summary Completed 08/04/2017 Patient Education: Patient Medication Summary Completed 07/31/2017 Care Plan: [place] : [address]-9 Pending 07/31/2017 Care Plan: ASSAY THYROID STIM HORMONE Pen ding 07/31/2017 Care Plan: LIPID PANEL LOINC : 12923-5 Pending 07/31/2017 Care Plan: CBC Pending 07/31/2017 Care Plan: A1C HPLC LOINC : 90753-7 Pending 07/31/2017 Patient Education: Patient Medication Summary Completed 06/19/2017 Patient Education: Patient Medication Summary Completed 06/09/2017 Care Plan: CT SOFT TISSUE [place] : [address]-7 Pending 06/09/2017 Visit Diagnosis Plan: Acute sialoadenitis [...] : B02.9 06/04/2017 Appointment: Gely Harp [address] [facility] ACUTE ILLNESS 06/04/2017 Patient Education: Patient Medication [...] : B02.9 06/02/2017 Appointment: Gely Harp [address] [facility] ACUTE ILLNESS 06/02/2017 Patient Education: Patient Medication [...] E11.9 05/05/2017 Appointment: Neela [facility]yman [facility]Ptel: [phone] [facility] [facility] 05/05/2017 Patient Education: Patient Medication Summary Completed 05/05/2017 Patient Education: Patient Medication Summary Completed 05/01/2017 Care Plan: A1C HPLC [facility] : 40541-8 Pending 05/01/2017 Visit Diagnosis Plan: Chronic obstructiv [...] : H61.23 04/10/2017 Appointment: Gely Harp [address] [place] [address] ACUTE ILLNESS 04/10/2017 Patient Education: Patient Medication Summary Completed 04/10/2017 Appointment: Neela Hyman WPtel: [address] [place] [address] INJECTION 03/28/2017 Patient Education: Patient Medication Summary [...] : J44.9 02/03/2017 Appointment: Neela Hyman WPtel: [facility] [address] FOLLOW UP 02/03/2017 Patient Education: Patient Medication Summary Completed 02/03/2017 Patient Education: Patient Medication Summary Completed 01/30/2017 Care Plan: [place] : [address]-1 Pending 01/30/2017 Care Plan: LIPID PANEL LOINC : 73752-2 Pending 01/30/2017 Care Plan: CBC Pending 01/30/2017 Care Plan: A1C HPLC LOINC : 96731-0 Pending 01/30/2017 Care Plan: ASSAY OF PSA [...] : E11.65 10/30/2016 Appointment: Neela Hyman WPtel: [address] [place], [place] [address] [place] 6/ lm ~sl / confirmed~sl FOLLOW UP 11/2016 Patient Education: Patient Medication Summary Completed 10/30/2016 Patient Education: Patient Medication Summary Completed 10/24/2016 Visit Diagnosis Plan: Acute bronchitis, unspecified Di scussion: Patient sounds and looks much improved Continue current regimen Keep appt with Dr Levi for Friday Follow up PRN ICD-9 : 466.0 ICD-10 : J20.9 08/30/2016 Appointment: Samm[facility] [facility] 4/6 rang and rang rang 4/7 rang [...] : J20.9 08/27/2016 Appointment: Sammi [facility] [facility] [facility] 08/27/2016 Patient Education: Patient Medication Summary Completed 08/27/2016 Care Plan: Referral Order SNOMED-CT : 30 [id number] Pending 08/27/2016 Visit Diagnosis Plan: Type 2 [...] : I10 07/02/2016 Appointment: Neela Hyman WPtel: [address] [place], [place] [address] 07/01 rang and elly` FOLLOW UP 7 Patient Education: Patient Medication Summary Completed 07/02/2016 Patient Education: Patient Medication Summary Completed 06/27/2016 Care Plan: LIPID PANEL LOINC : 46054-0 Pending 06/27/2016 Care Plan: COMPREH[place] : 89516-7 Pending 06/27/2016 Care Plan: A1C HPLC LOINC : 52724-8 Pending 06/27/2016 Visit Diagnosis Plan: Acute bronchitis, [...] ICD-10 : J20.9 06/14/2016 Appointment: [facility] [facility] [facility] 06/14/2016 Patient Education: Patient Medication [...] : 466.0 ICD-10 : J20.9 06/13/2016 Appointment: Reinaldo Sammi [address] [place], [place] [phone] ACUTE ILLNESS 06/13/2016 Patient Education: Patient Medication Summary Completed 06/13/2016 Care Plan: CHEST X-RAY 2VW FRONTAL&LATL LOINC : 38478-7 Pending 06/13/2016 Visit Plan: Increase metoprolol to 100mg po BID BP readings and BP check in 1month 05/14/2016 Appointment: Neela Hyman WPtel: [address] [place], [place] [address] 05/13 rang and rang`sl FOLLOW UP 6 Patient Education: Patient Medication Summary Completed 05/14/2016 Visit Plan: Increase metoprolol to 50mg BID BP check in 1 week f/u BP appt 2 weeks consider musculoskeletal if pain returns 04/29/2016 Appointment: Neela Hyman WPtel: [address] [place], [place] [phone] 04/25 confimred~sl FOLLOW UP 04/29/2016 Patient Education: Patient Medication Summary Completed 04/29/2016 Visit Plan: Stat CT scan of abdomen/pelv is to look for stone Hydrate and use tramadol prn Increase metoprolol to 25mg po BID Will see urology pending CT scan results 04/22/2016 Appointment: Neela Hyman WPtel: [address] [place], [place] [phone] 04/17 confirmed-sp ACUTE ILLNESS 04/22/2016 Patient Education: [...] flu shot 04/01/2016 Appointment: Neela Hyman WPtel: [address] [place], [place] [phone] FOLLOW UP 04/01/2016 Patient Education: Patient Medication Summary Completed 04/01/2016 Patient Education: [facility] - Saving AutoInj - 18-64 - Dynamic Heber medina ID Completed 04/01/2016 Patient Education: Patient Medication Summary Completed 03/28/2016 Care Plan: A1C HPLC LOINC : 17962-6 Pending 03/28/2016 Care Plan: [place] : [address]-8 Pending 03/28/2016 Visit Plan: Lab discussed Continue curre nt meds Accuchecks daily 11/30/2015 Appointment: Neela Hyman WPtel: [address] [place], [place] [phone] 11/28 confirmed~sl FOLLOW UP 11/30/2015 Patient Education: Patient Medication Summary Completed 11/30/2015 Appointment: Neela Hyman WPtel: [address] [place], [place] [phone] RESCHEDULED 11/28/2015 Patient Education: Patient Medication Summary Completed 11/23/2015 Care Plan: [place] : 73[address]-2 Pending 11/23/2015 Care Plan: LIPID PANEL LOINC : 73055-1 Pending 11/23/2015 Care Plan: CBC Pending 11/23/2015 Care Plan: A1C HPLC LOINC : 97545-2 Pending 11/23/2015 Visit Plan: Lab discussed Accuchecks richard ly Continue current meds Cymbalta helping with feet and mood 08/29/2015 Appointment: Neela Hyman WPtel: [facility] [place] FOLLOW UP 08/29/2015 Patient Education: Patient Medication Summary Completed 08/29/2015 Visit Plan: Check CXR Stop all steroids and steroid inhalers Use SVN with but change to duoneb Add singulair for allergy etiology Change fluoxetine to cymbalta 60mg daily Viagra samples given to try prn--warned of no nitrates 08/14/2015 Appointment: Neela Hyman [facility]Ptel: [phone] [facility] lm to reschedule ~sl 07/27 lm ~sl 08/09 busy 08/10 fer grayson Annual Well Visit 08/14/2015 Patient Education: Patient Medication Summary Completed 08/14/2015 Care Plan: CHEST X-RAY 2VW FRONTAL&LATL LOINC : 43338-6 Ordered 08/14/2015 Visit Plan: Decadron 8mg given [...] improving as expected 08/09/2015 Appointment[facility] [facility] [facility] Follow UP 08/09/2015 Patient Education: Patient Medication Summary Completed 08/09/2015 Patient Education: [facility] - Saving AutoInj - 18-64 - Dynamic [...] with it 05/22/2015 Appointment: Neela Hyman WPtel: [phone] [facility] 05/17 confirmed~sl FOLLOW UP 05/22/2015 Patient Education: Patient Medication Summary Completed 05/22/2015 Patient Education: Patient Medication Summary Completed 05/15/2015 Visit Plan: Obtain EMGs done at [place] from when fractured left arm Lab discussed Accuchecks daily 02/13/2015 Appointment: Neela Hyman WPtel: [phone] [facility] 02/10 confrimed FOLLOW UP 02/13/2015 Patient Education: Patient Medication Summary Completed 02/13/2015 Patient Education: Patient Medication Summary Completed 02/09/2015 Visit Plan: discussed lab add fenofibrat e 134mg po daily recheck fasting lab in 3 months, CBC, CMP, Lipids, hgb AIC 11/07/2014 Appointment: Neela Hyman WPtel: [address] [place], [place] [phone] 11/04 appt confirmed cn FOLLOW UP 015 Patient Education: Patient Medication Summary Completed 11/07/2014 Patient Education: Patient Medication Summary Completed 11/03/2014 Visit Plan: Continue loratadine 10mg richard ly Notify if symptoms return 10/04/2014 Appointment: Neela Hyman WPtel: [address] [place], [place] [address] confirmed on 10/03 at 2:42pm FOLLOW UP 09/23 Patient Education: Patient Medication Summary Completed 10/04/2014 Appointment: Neela Hyman WPtel: [address] [place], [place] [id number] ACUTE ILLNESS 09/28/2014 Appointment: Loren Garza WPtel: [address] [place], [place] [phone] FOLLOW UP 09/22/2014 Patient Education: Patient Medication Summary Completed 09/22/2014 Appointment: Loren Garza WPtel: [address] [place] [address] ACUTE ILLNESS 09/21/2014 Patient Education: Patient Medication Summary Completed 09/21/2014 Patient Education: [facility] - Saving AutoInj - 18+ - Dynamic Portal ID Completed 09/21/2014 Visit Plan: Lab discussed Continue daily accuchecks Continue current meds 06/28/2014 Appointment: Neela Hyman WPtel: [address] [place], [place] [phone] FOLLOW UP 06/28/2014 Patient Education: Patient Medication Summary Completed 06/28/2014 Patient Education: Patient Medication Summary Completed 06/23/2014 Appointment: Sarah Sunshine WPtel: [address] [place] [address] ACUTE ILLNESS 06/10/2014 Patient Education: Patient Medication Summary Completed 06/10/2014 Patient Education: [facility] - Saving AutoInj - 18+ - Dynamic Portal ID Completed 06/10/2014 Visit Plan: Lab discussed Continue daily accuchecks Continue current meds 03/29/2014 Appointment: Neela Hyman WPtel: [address] [place], [place] [id number] FOLLOW UP 03/29/2014 Patient Education: Patient Medication Summary Completed 03/29/2014 Patient Education: Patient Medication Summary Completed 03/23/2014 Visit Plan: Lab discussed Continue curre nt meds and accuchecks See surgery for removal of hand lesion 11/30/2013 Appointment: Neela Hyman WPtel: [address] [place] [address] 11/29 no answer FOLLOW UP 11/30/2013 Patient Education: Patient Medication Summary Completed 11/30/2013 Visit Plan: Lab discussed Continue curre nt meds 08/03/2013 Appointment: Neela Hyman WPtel: [address] [place] [address] FOLLOW UP 08/03/2013 Patient Education: Patient Medication Summary Completed 08/03/2013 Visit Plan: Lab Discussed Will continue current meds and pt will get back on diet/exercise Check lab in 4mos and fwup 04/06/2013 Appointment: Neela Hyman WPtel: [address] [place], [place] [phone] FOLLOW UP 04/06/2013 Patient Education: Patient Medication Summary Completed 04/06/2013 Visit Plan: Lab discussed Continue daily accuchecks 12/01/2012 Appointment: Neela Hyman WPtel: [address] [place], [place] [phone] 11/30 no answer FOLLOW UP 12/01/2012 Patient Education: Patient Medication Summary Completed 12/01/2012 Visit Plan: Continue current meds and da russell accuchecks Lab discussed 08/04/2012 Appointment: Neela Hyman WPtel: [address] [place], [place] [phone] FOLLOW UP 08/04/2012 Patient Education: Patient Medication Summary Completed 08/04/2012 Appointment: Neela Hyman WPtel: [address] [place], [place] [phone] [place] [address] 06/01/2012 Patient Education: Patient Medication Summary Completed 06/01/2012 Appointment: Janet Jean Baptiste WPtel: [address] [place] [address] FOLLOW UP 05/29/2012 Patient Education: Patient Medication Summary Completed 05/29/2012 Visit Plan: pt states Dr. Hyman told h is to increase his Prozac dose while she was talking to her at [facility]. Discussed that pt. should not increase or decrease dosage without 's knowledge. Pt. will seek hearing test here in town at the hearing aid place on [address]. Discussed that ear pain is likely caused by sinus pressure. Pt. will notify if no improvement. 05/25/2012 Appointment: Janet Jean Baptiste WPtel: [address] [place], [place] [phone] ACUTE ILLNESS 05/25/2012 Patient Education: Patient Medication Summary Completed 05/25/2012 Visit Plan: Continue current meds Contin ue daily accuchecks but alternate times Increase fish oil to 3gm daily 04/07/2012 Appointment: Neela Hyman WPtel: [address] [place], [place] [phone] 04/06 FOLLOW UP 04/07/2012 Patient Education: Patient Medication Summary Completed 04/07/2012 Appointment: Janet Jean Baptiste WPtel: [address] [place], [place] [phone] ACUTE ILLNESS 12/16/2011 Patient Education: Patient Medication Summary Completed 12/16/2011 Visit Plan: Increase 12/03/2011 Appointment: Neela Hyman WPtel: [address] [place], [place] [phone] [place] FOLLOW UP 12/03/2011 Patient Education: Patient Medication Summary Completed 12/03/2011 Visit Plan: Continue current meds Contin ue accuchecks 08/29/2011 Appointment: Neela Hyman WPtel: [address] [place], [place] [phone] [place] FOLLOW UP 08/29/2011 Patient Education: Patient Medication Summary Completed 08/29/2011 Visit Plan: Continue current meds except restart zocor 05/30/2011 Appointment: Neela Hyman WPtel: [address] [place] [address] [place] FOLLOW UP 05/30/2011 Patient Education: Patient Medication Summary Completed 05/30/2011 Visit Plan: Continue tennis elbow strap May go back to weight-lifing--light weigts every other day 01/29/2011 Appointment: Neela Hyman WPtel: [address] [place] [address] FOLLOW UP 01/29/2011 Patient Education: Patient Medication Summary Completed 01/29/2011 Visit Plan: Continue tennis elbow strap and anti-inflammatories 01/14/2011 Appointment: Neela Hyman WPtel: [address] [place], [place] [phone] FOLLOW UP 01/14/2011 Appointment: Janet Jean Baptiste WPtel: [address] [place], [place] [phone] [place] NEW PATIENT 01/14/2011 Patient Education: Patient Medication Summary Completed 01/14/2011 Appointment: Neela Hyman WPtel: [address] [place], [place] [phone] [place] FOLLOW UP 01/08/2011 Appointment: Neela Hyman WPtel: [address] [place], [place] [phone] [place] FOLLOW UP 01/01/2011 Appointment: Neela Hyman WPtel: [address] [place], [place] [phone] [place] [address] 01/01/2011 Patient Education: Patient Medication Summary Completed [...] given. 11/29/2010 Appointment: Janet Jean Baptiste WPtel: [address] [place] [address] ACUTE ILLNESS 11/29/2010 Patient Education: Patient Medication Summary Completed 11/29/2010 Visit Plan: Cont current meds Check CMP, Lipids, HbA1C 08/28/2010 Appointment: Neela Hyman WPtel: [address] [place] [address] FOLLOW UP 08/28/2010 Patient Education: Patient Medication Summary Completed 08/28/2010 Visit Plan: Cont current meds and accuch ecks Add Zocor 40mg q HS Check Lipids and HbA1C in 3mos 06/05/2010 Appointment: Neela Hyman WPtel: [address] [place] [address] FOLLOW UP 06/05/2010 Patient Education: Patient Medication Summary Completed 06/05/2010 Visit Plan: Check Lipids and HbA1C 02/05/2010 Appointment: Neela Hyman WPtel: [address] [place] [address] FOLLOW UP 02/05/2010 Patient Education: Patient Medication Summary Completed 02/05/2010 Visit Plan: HbA1C in 3mos. Continue Accu checks BID alternating times. Check HbA1C, CMP, Lipids 10/09/2009 Appointment: Neela Hyman WPtel: [address] [place] [address] FOLLOW UP 10/09/2009 Patient Education: Patient Medication Summary Completed 10/09/2009 Visit Plan: Saline nasal flushes prn. Ty lenol/Motrin prn headache. Notify if persists/symptoms worsening. 08/22/2009 Appointment: [facility] [phone] [id number] [facility] 08/22/2009 Patient Education: Patient Medication Summary Completed 08/22/2009 Referral: [facility] [phone] [id number] [place] Office will verfy his insurance then they will contact patient Completed Referral: Shahbaz Brennan WPtel: [address] [facility] [address] [id number] [place] Referral Completed Referral: Ion Levi [address] [facility] C&D [id number] [place] Referral Appointment Requested Referral: Ion Levi [address] [facility] C[facility]D [id number] [place] Referral Appointment Requested Instructions Comment . [...] with it . Obtain EMGs done at [place] from when fractured left arm Lab discussed [...] while she was talking to her at [facility]. Discussed that pt. should not increase or decrease dosage without Dr's knowledge. Pt. will seek hearing test here in town at the hearing aid place on [address]. Discussed that ear pain is likely caused [...]
--- OUTSIDE RECORDS SUMMARY | 2019-12-09 09:14 | XMS REPORT | CCD ---
Author Author Michael Hyman D.O. Organization [facility] Address [address] [place] [address] Phone Care Team Providers Care Boilermaker Name Role Phone Neela Hyman D.O., PP Unavailable CCM Unavailable Summary Purpose Interface Exchange Insurance Providers Payer name Policy type / Coverage type Covered libertarian ID Effective Begin Date Effective End Date ABS [employer] Commercial Insurance [id number] Unknown Family History Family History data not found Social History Social History Element Codes Description Effective Dates Marital status Unknown 05/30/[address]: 3323773 Former smoker quit 25 years ago 01/01/2011 [...] Fill Instructions metformin 500 mg tablet RxNorm: 457795 2 Tablet(s) Oral two afshan es a day 07/13/2019 09/11/2019 Active Keflex 500 mg capsule RxNorm: 939751 1 Capsule(s) Oral three ti mes a day 07/06/2019 07/13/2019 Inactive Singulair 10 mg tablet RxNorm: 730926 TAKE ONE TABLET BY MOUTH EVERY EVENING 07/06/2019 01/02/2020 Active Reselected prescribe r from [facility] to [facility] Singulair 10 mg tablet RxNorm: 090902 TAKE ONE TABLET BY MOUTH EVERY EVENING 06/22/2019 07/05/2019 Inactive Reselected prescribe r from PEG MAHER to [facility] Zocor 40 mg tablet RxNorm: 967857 TAKE ONE TABLET BY M OUTH EVERY NIGHT AT BEDTIME 06/21/2019 11/17/2019 Active MagOx 400 mg (241.3 mg magnesium) tablet RxNorm: 202746 1 Table t(s) Oral QD 06/21/2019 08/20/2019 Active diltiazem ER 360 mg capsule,24 hr,extended release RxNorm: 8 46977 TAKE ONE CAPSULE BY MOUTH AT BEDTIME -REPLACES 300MG 05/17/2019 11/12/2019 Active MagOx 400 mg (241.3 mg magnesium) tablet RxNorm: 355874 1 Table t(s) Oral QD 04/26/2019 06/20/2019 Inactive Lasix 40 mg tablet RxNorm: 354787 40 MG PO DAILY 04/12/2019 No Stop Da te Active Benicar 40 mg tablet RxNorm: 406381 1 Tablet(s) Oral QD 03/29/2019 Active potassium chloride ER 20 mEq tablet,extended release RxNorm: 150017 1 Tablet(s) Oral two times a day 03/29/2019 06/27/2019 Inactive potassium chloride ER 20 mEq tablet,extended release RxNorm: 671979 1 Tablet(s) Oral QD 03/29/2019 03/28/2019 Inactive Benicar 40 mg tablet RxNorm: 700865 1 Tablet(s) Oral QD 03/29/2019 Inactive MagOx 400 mg (241.3 mg magnesium) tablet RxNorm: 513563 1 Table t(s) Oral QD 03/29/2019 04/25/2019 Inactive metformin 500 mg tablet RxNorm: 840103 2 Tablet(s) Oral two afshan es a day 03/29/2019 07/12/2019 Inactive fenofibrate micronized 134 mg capsule RxNorm: 561184 TA KE ONE CAPSULE BY MOUTH EVERY DAY 03/05/2019 08/31/2019 Active duloxetine 60 mg capsule,delayed release RxNorm: 589325 1 Capsu le(s) PO QD 01/28/2019 07/26/2019 Active Trelegy Ellipta 100 mcg-62.5 mcg-25 mcg powder for inhalatio n RxNorm: 6348816 1 Puff(s) INH QD 01/06/2019 12/31/2019 Active 90 day supply prednisone 20 mg tablet RxNorm: 385504 1 Tablet(s) PO T ID for 3 days then 1 po BID for 3 days then 1 po daily for 3 days 01/05/2019 03/28/2019 Inacti ve metformin ER 1,000 mg tablet,extended release 24hr RxNorm: 1 920401 TAKE TWO TABLETS (1000MG) BY MOUTH TWO TIMES A DAY 12/22/2018 07/13/2019 Inacti ve Diflucan 100 mg tablet RxNorm: 747529 1 Tablet(s) PO QD 12/09/2018 Inactive albuterol sulfate 2.5 mg/3 mL (0.083 %) solution for n ebulization RxNorm: 483617 3 Milliliter(s) INH ONE VIAL VIA NEBULIZER EVERY 4 HOURS 019 07/21/2019 Active [AttnRPh: Saving apply/adjudicate RxGRP: SG20 RxBIN:[id number] RxPCN: ID#:[id number]] prednisone 20 mg tablet RxNorm: 993023 1 Tablet(s) PO B ID for 4 days then 1 po daily for 4 days 11/24/2018 01/04/2019 Inactive Trelegy Ellipta 100 mcg-62.5 mcg-25 mcg powder for inhalatio n RxNorm: 7698348 1 Puff(s) INH QD 10/27/2018 01/06/2019 Inactive 90 day supply metoprolol succinate ER 100 mg tablet,extended release 24 hr RxNorm: 072622 TAKE ONE TABLET BY MOUTH TWICE A DAY 10/13/2018 07/09/2019 Inactive diltiazem ER 360 mg capsule,24 hr,extended release RxNorm: 8 54482 TAKE ONE CAPSULE BY MOUTH AT BEDTIME -REPLACES 300MG 10/13/2018 04/10/2019 Inactive Trelegy Ellipta 100 mcg-62.5 mcg-25 mcg powder for inhalatio n RxNorm: 5901637 INHALE ONE PUFF ONCE DAILY 09/07/2018 10/27/2018 Inactive Levaquin 750 mg tablet RxNorm: 324832 1 Tablet(s) PO QD 09/07/2018 Inactive Levaquin 750 mg tablet RxNorm: 338469 1 Tablet(s) PO QD 09/07/2018 Inactive prednisone 20 mg tablet RxNorm: 847524 2 Tablet(s) PO QAM 08/13/2018 08/19/2018 Inactive Levaquin 500 mg tablet RxNorm: 776098 1 Tablet(s) PO QD 08/11/2018 Inactive fenofibrate micronized 134 mg capsule RxNorm: 740784 TA KE ONE CAPSULE BY MOUTH EVERY DAY 08/10/2018 02/05/2019 Inactive prednisone 20 mg tablet RxNorm: 273907 1 Tablet(s) PO BID 07/16/2018 07/20/2018 Inactive doxycycline hyclate 100 mg capsule RxNorm: 8951412 1 Capsule(s) PO BID 07/13/2018 07/22/2018 Inactive duloxetine 60 mg capsule,delayed release RxNorm: 336154 TAKE ONE CAPSULE BY MOUTH ONCE A DAY 07/08/2018 01/28/2019 Inactive Lasix 40 mg tablet RxNorm: 726321 1 TABLET(S) PO QAM 06/08/201809/05 Inactive potassium chloride ER 20 mEq tablet,extended release(p art/cryst) RxNorm: 5703291 1 TABLET(S) PO QD 06/08/2018 09/05/2018 Inactive metformin ER 1,000 mg tablet,extended release 24hr RxNorm: 1 350057 TAKE TWO TABLETS (1000MG) BY MOUTH TWO TIMES A DAY 06/01/2018 11/27/2018 Inacti ve Benicar HCT 40 mg-25 mg tablet RxNorm: 285061 TAKE ONE TABLET BY MOUTH ONCE DAILY 05/11/2018 03/28/2019 Inactive Zocor 40 mg tablet RxNorm: 537442 TAKE ONE TABLET BY M OUTH EVERY NIGHT AT BEDTIME 05/11/2018 06/20/2019 Inactive Trelegy Ellipta 100 mcg-62.5 mcg-25 mcg powder for inhalatio n RxNorm: 8723311 1 PUFF(S) INH QD 04/06/2018 07/04/2018 Inactive diltiazem ER 360 mg capsule,24 hr,extended release RxNorm: 8 70351 1 Capsule(s) PO QHS replaces 300mg dose 03/30/2018 09/25/2018 Inactive Trelegy Ellipta 100 mcg-62.5 mcg-25 mcg powder for inhalatio n RxNorm: 7470196 1 Puff(s) INH QD 02/24/2018 02/23/2018 Inactive Trelegy Ellipta 100 mcg-62.5 mcg-25 mcg powder for inhalatio n RxNorm: 6194078 1 Puff(s) INH QD 02/24/2018 02/23/2018 Inactive Trelegy Ellipta 100 mcg-62.5 mcg-25 mcg powder for inhalatio n RxNorm: 0966696 1 Puff(s) INH QD 02/24/2018 04/05/2018 Inactive Lasix 40 mg tablet RxNorm: 171629 1 Tablet(s) PO QAM 02/10/201803/11 Inactive potassium chloride ER 20 mEq tablet,extended release(p art/cryst) RxNorm: 0368092 1 Tablet(s) PO QD 02/10/2018 03/11/2018 Inactive fenofibrate micronized 134 mg capsule RxNorm: 285831 1 Capsule( s) PO QD 01/30/2018 07/28/2018 Inactive metoprolol succinate ER 100 mg tablet,extended release 24 hr RxNorm: 553378 TAKE ONE TABLET BY MOUTH TWICE A DAY 12/30/2017 09/25/2018 Inactive metformin ER 1,000 mg tablet,extended release 24hr RxNorm: 1 376058 1 Tablet(s) PO BID 11/17/2017 05/15/2018 Inactive [SAVINGS FOR NON -COVERED DRUGS -- BIN:190338, PCN: ASPROD1, Group: XXXXX, ID# [id number], Questions: . THIS IS NOT INSURANCE.] Benicar HCT 40 mg-25 mg tablet RxNorm: 049962 1 Tablet(s) PO QD 05/10/2018 Inactive [SAVINGS FOR NON-COVERED JESU GS -- BIN:758133, PCN: ASPROD1, Group: XXXXX, ID# [id number], Questions: . THIS IS NOT INSURANCE.] Bactroban 2 % topical cream RxNorm: 936152 Application TOP BID 10/2409/02/2018 Inactive clindamycin HCl 300 mg capsule RxNorm: 867133 2 Capsule(s) PO TID 0 11/05/2017 11/18/2017 Inactive duloxetine 60 mg capsule,delayed release RxNorm: 178057 Capsule(s) TAKE ONE CAPSULE BY MOUTH ONCE DAILY 09/24/2017 09/23/2017 Inactive triamcinolone acetonide 0.1 % topical ointment RxNorm: 2380118 1 TOP BID 09/09/2017 11/04/2017 Inactive Bactrim DS 800 mg-160 mg tablet RxNorm: 161403 1 Tablet(s) PO BID 0 08/07/2017 08/13/2017 Inactive metronidazole 500 mg tablet RxNorm: 498653 1 Tablet(s) PO BID 08/0708/13/2017 Inactive diltiazem ER 360 mg capsule,24 hr,extended release RxNorm: 8 02658 1 Capsule(s) PO QHS replaces 300mg dose 08/04/2017 01/30/2018 Inactive fenofibrate micronized 134 mg capsule RxNorm: 643565 1 Capsule( s) PO QD 07/21/2017 01/30/2018 Inactive Zocor 40 mg tablet RxNorm: 762090 1 Tablet(s) PO QHS 07/21/201705/10 Inactive GB duloxetine 60 mg capsule,delayed release RxNorm: 804047 Capsule(s) TAKE ONE CAPSULE BY MOUTH ONCE DAILY 06/24/2017 09/24/2017 Inactive Cleocin HCl 300 mg capsule RxNorm: 124498 2 Capsule(s) PO BID 06/0206/08/2017 Inactive acyclovir 800 mg tablet RxNorm: 946333 1 Tablet(s) PO 5x day 201706/08/2017 Inactive diltiazem ER 300 mg capsule,24 hr,extended release RxNorm: 8 63638 1 Capsule(s) PO QHS replaces 240mg dose 05/05/2017 08/03/2017 Inactive ipratropium-albuterol 0.5 mg-3 mg(2.5 mg base)/3 mL ne bulization soln RxNorm: 8041522 1 Unit Dose INH Q4H as needed 05/05/2017 01/04/2019 Inactive metformin ER 1,000 mg tablet,extended release 24hr RxNorm: 1 051919 1 Tablet(s) PO BID 04/28/2017 11/17/2017 Inactive [SAVINGS FOR NON -COVERED DRUGS -- BIN:637387, PCN: ASPROD1, Group: XXXXX, ID# XXXXXXX, Questions: . THIS IS NOT INSURANCE.] diltiazem ER (XR/XT) 240 mg capsule,extended release 2 4 hr, controlled RxNorm: 757203 TAKE ONE CAPSULE BY MOUTH EVERY DAY 04/15/2017 05/04/2017 Inact avani prednisone 20 mg tablet RxNorm: 680000 1 Tablet(s) PO QD 04/10/2017 1 06/14/2016 Inactive Breo Ellipta 200 mcg-25 mcg/dose powder for inhalation RxNor m: 8269371 1 Puff(s) INH QD 04/10/2017 02/09/2018 Inactive Breo Ellipta 200 mcg-25 mcg/dose powder for inhalation RxNor m: 3372348 1 Puff(s) INH QD 04/10/2017 04/09/2017 Inactive Levaquin 500 mg tablet RxNorm: 312713 1 Tablet(s) PO QD 04/10/2017 Inactive metoprolol succinate ER 100 mg tablet,extended release 24 hr RxNorm: 898808 TAKE ONE TABLET BY MOUTH TWICE A DAY 03/24/2017 12/18/2017 Inactive fenofibrate micronized 134 mg capsule RxNorm: 242441 1 Capsule( s) PO QD 01/16/2017 07/21/2017 Inactive Benicar HCT 40 mg-25 mg tablet RxNorm: 717225 1 Tablet(s) PO QD 11/17/2017 Inactive [SAVINGS FOR NON-COVERED JESU GS -- BIN:977331, PCN: ASPROD1, Group: XXXXX, ID# XXXXXXX, Questions: . THIS IS NOT INSURANCE.] metoprolol succinate ER 100 mg tablet,extended release 24 hr RxNorm: 586502 1 Tablet(s) PO BID 10/16/2016 03/23/2017 Inactive diltiazem ER (XR/XT) 240 mg capsule,extended release 2 4 hr, controlled RxNorm: 059315 1 Capsule(s) PO QD 10/16/2016 04/13/2017 Inactive [SAVINGS FOR NON- COVERED DRUGS -- BIN:439600, PCN: ASPROD1, Group: XXXXX, ID# XXXXXXX, Questions: . THIS IS NOT INSURANCE.] metformin ER 1,000 mg tablet,extended release 24hr RxNorm: 8 04331 1 Tablet(s) PO BID 10/16/2016 04/28/2017 Inactive [SAVINGS FOR NON -COVERED DRUGS -- BIN:920277, PCN: ASPROD1, Group: XXXXX, ID# XXXXXXX, Questions: . THIS IS NOT INSURANCE.] Zocor 40 mg tablet RxNorm: 895282 1 Tablet(s) PO QHS 10/16/201607/21 Inactive GB Singulair 10 mg tablet RxNorm: 871948 Tablet(s) 1 TABLET(S) PO QHS 08/27/2016 09/02/2018 Inactive prednisone 20 mg tablet RxNorm: 968846 1 Tablet(s) PO QD 08/27/2016 0 08/31/2016 Inactive ipratropium-albuterol 0.5 mg-3 mg(2.5 mg base)/3 mL ne bulization soln RxNorm: 9537657 1 Unit Dose INH Q4H as needed 08/27/2016 05/04/2017 Inactive metoprolol succinate ER 100 mg tablet,extended release 24 hr RxNorm: 429886 TAKE ONE TABLET BY MOUTH TWICE A DAY 08/05/2016 10/16/2016 Inactive duloxetine 60 mg capsule,delayed release RxNorm: 374997 TAKE ONE CAPSULE BY MOUTH ONCE DAILY 08/05/2016 06/24/2017 Inactive prednisone 20 mg tablet RxNorm: 971815 1 Tablet(s) PO QD 06/14/2016 0 06/18/2016 Inactive ipratropium-albuterol 0.5 mg-3 mg(2.5 mg base)/3 mL ne bulization soln RxNorm: 2558977 1 Unit Dose INH Q4H as needed 06/13/2016 08/26/2016 Inactive Levaquin 500 mg tablet RxNorm: 843078 1 Tablet(s) PO QD 06/13/2016 Inactive metoprolol succinate ER 100 mg tablet,extended release 24 hr RxNorm: 589215 1 Tablet(s) PO BID replaces 50mg dose 05/14/2016 07/12/2016 Inactive metoprolol succinate ER 50 mg tablet,extended release 24 hr RxNorm: 802992 1 Tablet(s) PO BID 04/29/2016 05/13/2016 Inactive prednisone 20 mg tablet RxNorm: 836094 1 Tablet(s) PO BID 04/22/2016 04/21/2016 Inactive prednisone 20 mg tablet RxNorm: 828089 1 Tablet(s) PO BID 04/22/2016 04/28/2016 Inactive Singulair 10 mg tablet RxNorm: 063176 Tablet(s) 1 TABLET(S) PO QHS 04/01/2016 08/26/2016 Inactive metoprolol succinate ER 25 mg tablet,extended release 24 hr RxNorm: 180249 1 Tablet(s) PO QHS for blood pressure 04/01/2016 05/13/2016 Inactive fenofibrate micronized 134 mg capsule RxNorm: 336180 TA KE ONE CAPSULE BY MOUTH DAILY 01/25/2016 01/16/2017 Inactive duloxetine 60 mg capsule,delayed release RxNorm: 727896 TAKE ONE CAPSULE BY MOUTH ONCE DAILY 01/25/2016 08/04/2016 Inactive Zocor 40 mg tablet RxNorm: 883186 TAKE ONE TABLET BY MOUTH AT B EDTIME 11/13/2015 10/16/2016 Inactive GB metformin ER 1,000 mg tablet,extended release 24hr RxNorm: 8 40901 1 Tablet(s) PO BID 10/26/2015 10/16/2016 Inactive [SAVINGS FOR NON -COVERED DRUGS -- BIN:902617, PCN: ASPROD1, Group: XXXXX, ID# [id number], Questions: . THIS IS NOT INSURANCE.] Benicar HCT 40 mg-25 mg tablet RxNorm: 220835 1 Tablet(s) PO QD 06/201511/11/2016 Inactive [SAVINGS FOR NON-COVERED JESU GS -- BIN:369741, PCN: ASPROD1, Group: XXXXX, ID# [id number], Questions: . THIS IS NOT INSURANCE.] diltiazem ER (XR/XT) 240 mg capsule,extended release,control led RxNorm: 485464 1 Capsule(s) PO QD 10/26/2015 10/15/2016 Inactive [SAVINGS FOR NO N-COVERED DRUGS -- BIN:505499, PCN: ASPROD1, Group: XXXXX, ID# [id number], Questions: . THIS IS NOT INSURANCE.] Singulair 10 mg tablet RxNorm: 968941 1 TABLET(S) PO QHS 09/18/2015 1 05/31/2015 Inactive Viagra 100 mg tablet RxNorm: 383985 1 Tablet(s) PO as needed 201511/23/2018 Inactive Singulair 10 mg tablet RxNorm: 991675 1 Tablet(s) PO QHS 08/16/2015 0 08/15/2015 Inactive Singulair 10 mg tablet RxNorm: 964329 1 Tablet(s) PO QHS 08/16/2015 0 09/14/2015 Inactive duloxetine 60 mg capsule,delayed release RxNorm: 919204 1 Capsule(s) PO QD replaces fluoxetine 08/14/2015 01/24/2016 Inactive ipratropium-albuterol 0.5 mg-3 mg(2.5 mg base)/3 mL ne bulization soln RxNorm: 2575393 1 Unit Dose INH Q4H as needed 08/14/2015 06/12/2016 Inactive prednisone 20 mg tablet RxNorm: 600284 Take 3 tabs PO o nce daily x 3 days, then 2 tabs PO once daily x 3 days and then 1 tab PO once daily x 3 days 08/09/2015 08/13/2015 Inactive Symbicort 160 mcg-4.5 mcg/actuation HFA aerosol inhaler RxNo rm: 2221799 2 Puff(s) INH BID 08/09/2015 08/13/2015 Inactive Zocor 40 mg tablet RxNorm: 206159 1 Tablet(s) PO QHS 05/23/201511/11 Inactive [AttnRPh: Saving apply/adjudicate RxGRP: SG20 RxBIN:[id number] RxPCN:HT ID#:[id number]] Benicar HCT 40 mg-25 mg tablet RxNorm: 229432 1 Tablet(s) PO QD 10/26/2015 Inactive [SAVINGS FOR NON-COVERED JESU GS -- BIN:985598, PCN: ASPROD1, Group: XXXXX, ID# [id number], Questions: . THIS IS NOT INSURANCE.] diltiazem ER (XR/XT) 240 mg capsule,extended release,control led RxNorm: 301599 1 Capsule(s) PO QD 04/24/2015 10/20/2015 Inactive [SAVINGS FOR NO N-COVERED DRUGS -- BIN:232098, PCN: ASPROD1, Group: XXXXX, ID# XXXXXXX, Questions: . THIS IS NOT INSURANCE.] fluoxetine 40 mg capsule RxNorm: 133890 1 Capsule(s) PO QD 04/24/20 15 08/13/2015 Inactive [SAVINGS FOR NON-COVERED JESU GS -- BIN:519504, PCN: ASPROD1, Group: XXXXX, ID# XXXXXXX, Questions: . THIS IS NOT INSURANCE.] Zocor 40 mg tablet RxNorm: 867008 TABLET(S) 1 TABLET(S) PO QHS 01/2505/23/2015 Inactive [AttnRPh: Saving apply/adjud icate RxGRP:SG20 RxBIN:[id number] RxPCN: ID#:[id number]] metformin ER 1,000 mg tablet,extended release 24hr RxNorm: 8 65555 1 TABLET(S) PO BID 01/29/2015 10/26/2015 Inactive [SAVINGS FOR NON -COVERED DRUGS -- BIN:630816, PCN: ASPROD1, Group: XXXXX, ID# XXXXXXX, Questions: . THIS IS NOT INSURANCE.] fenofibrate micronized 134 mg capsule RxNorm: 332955 1 CAPSULE( S) PO QD 01/23/2015 01/17/2016 Inactive fenofibrate micronized 134 mg capsule RxNorm: 044037 1 Capsule( s) PO QD 11/07/2014 01/22/2015 Inactive diltiazem ER (XR/XT) 240 mg capsule,extended release,control led RxNorm: 960992 1 Capsule(s) PO QD 10/24/2014 04/24/2015 Inactive [SAVINGS FOR NO N-COVERED DRUGS -- BIN:425488, PCN: ASPROD1, Group: XXXXX, ID# XXXXXXX, Questions: . THIS IS NOT INSURANCE.] Benicar HCT 40 mg-25 mg tablet RxNorm: 327021 1 Tablet(s) PO QD 05/201404/24/2015 Inactive [SAVINGS FOR NON-COVERED JESU GS -- BIN:253655, PCN: ASPROD1, Group: XXXXX, ID# XXXXXXX, Questions: . THIS IS NOT INSURANCE.] fluoxetine 40 mg capsule RxNorm: 600752 1 Capsule(s) PO QD 10/25/19 15 04/24/2015 Inactive [SAVINGS FOR NON-COVERED JESU GS -- BIN:046150, PCN: ASPROD1, Group: XXXXX, ID# XXXXXXX, Questions: . THIS IS NOT INSURANCE.] azithromycin 500 mg tablet RxNorm: 428783 1 Tablet(s) PO QD 015 09/27/2014 Inactive [SAVINGS FOR NON-COVERED JESU GS -- BIN:138632, PCN: ASPROD1, Group: XXXXX, ID# XXXXXXX, Questions: . THIS IS NOT INSURANCE.] albuterol sulfate 2.5 mg/3 mL (0.083 %) solution for n ebulization RxNorm: 501454 3 Milliliter(s) INH ONE VIAL VIA NEBULIZER EVERY 4 HOURS 015 11/19/2014 Inactive [AttnRPh: Saving apply/adjudicate RxGRP: SG20 RxBIN:[id number] RxPCN: ID#:[id number]] Zocor 40 mg tablet RxNorm: 888576 TABLET(S) 1 TABLET(S ) PO QHS 1 TABLET(S) PO QHS 09/04/2014 02/21/2015 Inactive [AttnRPh: Saving apply/adjudicate RxGRP:SG20 RxBIN:[id number] RxPCN:HT ID#:[id number]] metformin ER 1,000 mg tablet,extended release 24hr RxNorm: 8 94358 1 Tablet(s) PO BID 08/04/2014 01/28/2015 Inactive [SAVINGS FOR NON -COVERED DRUGS -- BIN:034106, PCN: ASPROD1, Group: XXXXX, ID# XXXXXXX, Questions: . THIS IS NOT INSURANCE.] Bromfed DM 2 mg-30 mg-10 mg/5 mL syrup RxNorm: 2328929 1 -2 Teaspoon(s) PO Q4H as needed for cough 06/10/2014 06/19/2014 Inactive [SAVINGS FOR UN INSURED PATIENTS -- BIN:353719, PCN: ASPROD1, Group: AME08, ID# [id number], Process claim through [employer], for questions: . THIS IS NOT INSURANCE.] Augmentin 875 mg-125 mg tablet RxNorm: 890673 1 Tablet(s) PO Q12H 0 06/10/2014 06/19/2014 Inactive [AttnRPh: Saving apply/adjud icate RxGRP:SG20 RxBIN:[id number] RxPCN: ID#:[id number]] Zocor 40 mg tablet RxNorm: 604168 Tablet(s) 1 TABLET(S ) PO QHS 1 TABLET(S) PO QHS 05/25/2014 08/22/2014 Inactive [AttnRPh: Saving apply/adjudicate RxGRP:SG20 RxBIN:[id number] RxPCN:HT ID#:[id number]] fluoxetine 40 mg capsule RxNorm: 660413 1 Capsule(s) PO QD 04/29/20 14 10/24/2014 Inactive [AttnRPh: Saving apply/adjud icate RxGRP:SG20 RxBIN:[id number] RxPCN:HT ID#:[id number]] diltiazem ER (XR/XT) 240 mg capsule,extended release,control led RxNorm: 401157 1 Capsule(s) PO QD 04/29/2014 10/24/2014 Inactive [AttnRPh: Shahzad g apply/adjudicate RxGRP:SG20 RxBIN:[id number] RxPCN:HT ID#:[id number]] Benicar HCT 40 mg-25 mg tablet RxNorm: 740419 1 Tablet(s) PO QD 09/201310/24/2014 Inactive [AttnRPh: Saving apply/adjud icate RxGRP:SG20 RxBIN:[id number] RxPCN:HT ID#:[id number]] Zocor 40 mg tablet RxNorm: 003514 1 TABLET(S) PO QHS 1 TABLET(S ) PO QHS 03/07/2014 05/25/2014 Inactive [AttnRPh: Saving chelsie ly/adjudicate RxGRP:SG20 RxBIN:[id number] RxPCN:HT ID#:[id number]] Zocor 40 mg tablet RxNorm: 652052 1 Tablet(s) PO QHS 1 TABLET(S ) PO QHS 12/06/2013 03/05/2014 Inactive [AttnRPh: Saving chelsie ly/adjudicate RxGRP:SG20 RxBIN:[id number] RxPCN:HT ID#:[id number]] diltiazem ER (XR/XT) 240 mg capsule,extended release,control led RxNorm: 145668 1 Capsule(s) PO QD 10/25/2013 04/22/2014 Inactive [AttnRPh: Savin g apply/adjudicate RxGRP:SG20 RxBIN:[id number] RxPCN:HT ID#:[id number]] fluoxetine 40 mg capsule RxNorm: 097327 1 Capsule(s) PO QD 10/26/1904/22/2014 Inactive [AttnRPh: Saving apply/adjud icate RxGRP:SG20 RxBIN:[id number] RxPCN:HT ID#:[id number]] Zocor 40 mg tablet RxNorm: 416155 1 Tablet(s) PO QHS 1 TABLET(S ) PO QHS 09/13/2013 12/06/2013 Inactive metformin ER 1,000 mg tablet,extended release 24hr RxNorm: 8 62765 Tablet(s) PO TAKE 1 TABLET BY MOUTH TWICE DAILY (REPLACES 500MG DOSE) 07/26/201303/2015 Inactive diltiazem ER (XR/XT) 240 mg capsule,extended release,control led RxNorm: 784271 1 Capsule(s) PO QD 05/03/2013 10/25/2013 Inactive fluoxetine 40 mg capsule RxNorm: 649575 1 Capsule(s) PO QD 05/03/20 13 10/25/2013 Inactive Benicar HCT 40 mg-25 mg tablet RxNorm: 021164 1 Tablet(s) PO QD 01/201304/29/2014 Inactive Zocor 40 mg tablet RxNorm: 191877 1 Tablet(s) PO QHS 12/10/201209/13 Inactive fluoxetine 40 mg capsule RxNorm: 184164 1 Capsule(s) PO QD 11/10/19 13 05/03/2013 Inactive diltiazem ER (XR/XT) 240 mg capsule,extended release,control led RxNorm: 474727 1 Capsule(s) PO QD 11/09/2012 05/03/2013 Inactive Benicar HCT 40 mg-25 mg tablet RxNorm: 252027 1 Tablet(s) PO QD 05/03/2013 Inactive metformin ER 1,000 mg tablet,extended release 24hr RxNorm: 8 29468 Tablet(s) PO TAKE 1 TABLET BY MOUTH TWICE DAILY (REPLACES 500MG DOSE) 08/05/201206/2013 Inactive Zocor 40 mg tablet RxNorm: 906836 1 Tablet(s) PO QHS 06/15/201212/09 Inactive fluoxetine 40 mg capsule RxNorm: 971334 1 Capsule(s) PO QD 05/15/20 12 11/08/2012 Inactive Neurontin 600 mg Tab RxNorm: 817124 1 Tablet(s) PO QHS 12/03/2011 Inactive metformin ER 1,000 mg tablet,extended release 24hr RxNorm: 8 85927 1 Tablet(s) PO BID replaces 500mg dose 12/03/2011 07/26/2013 Inactive Zocor 40 mg tablet RxNorm: 889627 1 Tablet(s) PO QHS 12/03/201106/15 Inactive fluoxetine 20 mg capsule RxNorm: 477990 1 Capsule(s) PO QD 12/03/19 12 05/24/2012 Inactive diltiazem ER (XR/XT) 240 mg capsule,extended release,control led RxNorm: 502130 1 Capsule(s) PO QD 11/15/2011 11/09/2012 Inactive Benicar HCT 40 mg-25 mg tablet RxNorm: 385322 1 Tablet(s) PO QD 02/16/2012 Inactive metformin ER 500 mg 24 hr Tab RxNorm: 795959 1 Tablet(s) PO BID 12/02/2011 Inactive Zocor 40 mg Tab RxNorm: 001326 1 Tablet(s) PO QHS 05/30/2011 11/25/19 12 Inactive fluoxetine 20 mg Cap RxNorm: 769231 1 Capsule(s) PO QD 05/28/2011 Inactive Neurontin 600 mg Tab RxNorm: 255301 1 Tablet(s) PO QHS 05/28/2011 Inactive Neurontin 600 mg Tab RxNorm: 386774 1 Tablet(s) PO QHS 02/22/201106/2011 Inactive Neurontin 600 mg Tab RxNorm: 264223 1 Tablet(s) PO QHS 01/14/2011 Inactive Neurontin 300 mg Cap RxNorm: 044540 1 Capsule(s) PO QHS 01/14/2011 Inactive Neurontin 600 mg Tab RxNorm: 201349 1 Tablet(s) PO QHS 01/14/2011 Inactive Medrol (Vipul) 4 mg Tabs in a Dose Pack RxNorm: 875674 Tablet(s) PO 0 01/02/2011 08/28/2011 Inactive as directed fluoxetine 20 mg Cap RxNorm: 179595 1 Capsule(s) PO QD 12/10/201006/2011 Inactive Zocor 40 mg Tab RxNorm: 362633 1 Tablet(s) PO QHS 12/03/2010 05/29/19 12 Inactive Neurontin 300 mg Cap RxNorm: 516078 1 Capsule(s) PO QHS 12/03/2010 Inactive Septra DS 800 mg-160 mg Tab RxNorm: 498022 1 Tablet(s) PO BID 11/2912/08/2010 Inactive diltiazem ER (XR/XT) 240 mg Continuous Release Cap RxNorm: 8 09177 1 Capsule(s) PO QD 11/20/2010 11/15/2011 Inactive Neurontin 300 mg Cap RxNorm: 316289 1 Capsule(s) PO QHS 11/06/2010 Inactive Neurontin 300 mg Cap RxNorm: 182908 1 Capsule(s) PO QHS 11/06/2010 Inactive Celebrex 200 mg Cap RxNorm: 023964 1 Capsule(s) PO BID 10/24/2010 Inactive fluoxetine 20 mg Cap RxNorm: 183502 1 Capsule(s) PO QD 06/07/201003/2011 Inactive Zocor 40 mg Tab RxNorm: 401060 1 Tablet(s) PO QHS 06/05/2010 12/02/19 11 Inactive Benicar HCT 40 mg-25 mg Tab RxNorm: 867905 1 Tablet(s) PO QD 200908/21/2011 Inactive Diltiazem 240 mg Continuous Release Cap RxNorm: 555861 1 Capsul e(s) PO QD 11/09/2009 09/02/2018 Inactive Avelox 400 mg Tab RxNorm: 209761 1 Tablet(s) PO QD 08/22/2009 010 Inactive ProAir HFA 90 mcg/actuation aerosol inhaler RxNorm: 827943 2 Puff(s) INH Q4H as needed No Start Date Active tramadol 50 mg tablet RxNorm: 093925 1-2 Tablet(s) PO TID as ne eded for pain No Start Date Active Tylenol Arthritis 650 mg Tab RxNorm: 4405277 2 Tablet(s) PO QD No Sta rt Date Active Celebrex 200 mg Cap RxNorm: 102897 1 Capsule(s) PO BID No Start Date 08/08/2015 Inactive Medrol (Vipul) 4 mg Tabs in a Dose Pack RxNorm: 174839 Tablet(s) PO N o Start Date 01/01/2011 Inactive as directed Promethazine-DM 6.25 mg-15 mg/5 mL Syrup RxNorm: 286055 1-2 Teaspoon(s) PO Q4H prn cough No Start Date 08/28/2011 Inactive Claritin 10 mg tablet RxNorm: 443108 1 Tablet(s) PO QD No Start Date 08/08/2015 Inactive [id number] Oral RxNorm: Oral No Start Da te 03/28/2019 Inactive Breo Ellipta 200 mcg-25 mcg/dose powder for inhalation RxNor m: 5106013 1 Puff(s) INH QD No Start Date 04/09/2017 Inactive metformin 500 mg Tab RxNorm: 140368 1 Tablet(s) PO QD No Start Date 0 08/17/2011 Inactive Diltiazem 240 mg Continuous Release Cap RxNorm: 460053 1 Capsul e(s) PO BID No Start Date 11/08/2009 Inactive fluoxetine 20 mg Cap RxNorm: 239501 1 Capsule(s) PO QD No Start Date 06/07/2010 Inactive Multivitamin & Mineral Formula Oral RxNorm: Oral No Start Da te 03/28/2019 Inactive Medrol (Vipul) 4 mg tablets in a dose pack RxNorm: 368172 Tablet(s) PO as directed No Start Date 05/28/2012 Inactive Fish Oil 1,000 mg Cap RxNorm: 1 Capsule(s) PO QD No Start Date 07/2018 Inactive Nexium 40 mg Cap RxNorm: 445884 1 Capsule(s) PO QD No Start Date 07/24 Inactive fluticasone 50 mcg/actuation nasal spray,suspension RxNorm: 4726167 2 [place] NASAL QD to each nostril No Start Date 08/03/2017 Inactive Viagra 100 mg tablet RxNorm: 091910 1 Tablet(s) PO as needed No Sta rt Date 09/17/2015 Inactive prednisone 20 mg tablet RxNorm: 476422 1 Tablet(s) PO B ID for 4 days then 1 po daily for 4 days No Start Date 11/23/2018 Inactive Benicar HCT 40 mg-25 mg Tab RxNorm: 777002 1 Tablet(s) PO QD No Sta rt [...] Date S ervice Location MICROALBUMIN URINE RANDOM 59238 MICRL MG/L 5.8 MG/L 03/2011 Unknown MICROALBUMIN URINE RANDOM 62227 XM.ALB/CRE 5.2 MG/GCR Unknown MICROALBUMIN URINE RANDOM 18990 CREAT MG/D 111 MG/DL 03/2011 Unknown MICROALBUMIN URINE RANDOM 18676 CRE/100 1.11 G/L 12/24 Unknown Procedures Procedure Codes Date FLU VACC PRSV FREE INC ANTIG 65 AND OLDER CPT-4: 97574 03/04/2019 ADMIN PNEUMOCOCCAL VACCINE CPT-4: G0009 03/04/2019 ADMIN INFLUENZA VIRUS VAC CPT-4: G0008 03/04/2019 FLU VACC PRSV FREE INC ANTIG 65 AND OLDER CPT-4: 42704 03/04/2019 PNEUMOCOCCAL VACC 23 [facility] IM CPT-4: 06292 03/04/2019 THER/PROPH/DIAG INJ SC/IM CPT-4: 11549 08/11/2018 TRIAMCINOLONE ACET INJ NOS CPT-4: J3301 08/11/2018 DEXAMETHASONE SODIUM PHOS CPT-4: J1100 08/11/2018 THER/PROPH/DIAG INJ SC/IM CPT-4: 97797 07/16/2018 METHYLPREDNISOLONE INJECTION CPT-4: J2930 07/16/2018 INFLUENZA ASSAY W/OPTIC CPT-4: 87688 07/16/2018 THER/PROPH/DIAG INJ SC/IM CPT-4: 79698 07/13/2018 TRIAMCINOLONE ACET INJ NOS CPT-4: J3301 07/13/2018 THER/PROPH/DIAG INJ SC/IM CPT-4: 16489 05/04/2018 METHYLPREDNISOLONE INJECTION CPT-4: J2930 05/04/2018 FLU VACC PRSV FREE INC ANTIG 65 AND OLDER CPT-4: 60615 02/10/2018 PNEUMOCOCCAL VACC 13 [facility] IM CPT-4: 37777 02/10/2018 ADMIN INFLUENZA VIRUS VAC CPT-4: G0008 02/10/2018 ADMIN PNEUMOCOCCAL VACCINE CPT-4: G0009 02/10/2018 THER/PROPH/DIAG INJ SC/IM CPT-4: 10546 09/09/2017 TRIAMCINOLONE ACET INJ NOS CPT-4: J3301 09/09/2017 ALBUTEROL NON-COMP UNIT CPT-4: J7613 04/10/2017 AIRWAY INHALATION TREATMENT CPT-4: 16874 04/10/2017 PRESCRIP TRANSMIT VIA ERX SY CPT-4: G8553 04/10/2017 FLU VACC PRSV FREE INC ANTIG 65 AND OLDER CPT-4: 78179 03/28/2017 ADMIN INFLUENZA VIRUS VAC CPT-4: G0008 03/28/2017 PRESCRIP TRANSMIT VIA ERX SY CPT-4: G8553 08/27/2016 PRESCRIP TRANSMIT VIA ERX SY CPT-4: G8553 06/14/2016 ALBUTEROL NON-COMP UNIT CPT-4: J7613 06/13/2016 AIRWAY INHALATION TREATMENT CPT-4: 22731 06/13/2016 PRESCRIP TRANSMIT VIA ERX SY CPT-4: [...] CPT-4: G8553 11/07/2014 THER/PROPH/DIAG INJ SC/IM CPT-4: 82995 09/21/2014 METHYLPREDNISOLONE INJECTION CPT-4: J2930 09/21/2014 PRESCRIP TRANSMIT VIA ERX SY CPT-4: G8553 09/21/2014 PRESCRIP TRANSMIT VIA ERX SY CPT-4: G8553 06/10/2014 URINALYSIS NONAUTO W/O SCOPE CPT-4: 78824 06/01/2012 PRESCRIP TRANSMIT VIA ERX SY CPT-4: G8553 05/25/2012 PRESCRIP TRANSMIT VIA ERX SY CPT-4: G8553 12/03/2011 CUR TOBACCO NON-USER CPT-4: G8457 05/30/2011 PRESCRIP TRANSMIT VIA ERX SY CPT-4: G8553 05/30/2011 URINALYSIS NONAUTO W/O SCOPE CPT-4: 42001 01/01/2011 URINE CULTURE/ COLONY COUNT CPT-4: 58712 01/01/2011 CUR TOBACCO NON-USER CPT-4: G8457 01/01/2011 [...] 1: 114/68 Code: 8480-6 BMI: 43.5 Code: 63370-4 Heart Rate 1: 52 bpm Height: 6'1" [...] 1: 136/72 Code: 8480-6 BMI: 42.7 Code: 73712-2 Heart Rate 1: 60 bpm Height: 6'1" Respiratory Rate: 22 bpm SpO2: 95% Tempera ture: 37.1 (C) / 98.7 (F) Weight: 324 lbs 02/10/2018 Blood Pressure 1: 146/78 Code: 8480-6 BMI: 42.4 Code: 00159-4 Heart Rate 1: 64 bpm Height: 6'1" Respiratory Rate: 22 bpm SpO2: 95% Tempera ture: 36.5 (C) / 97.7 (F) Weight: 321 lbs 11/05/2017 Blood Pressure 1: 128/84 Code: 8480-6 BMI: 42.9 Code: 14337-5 Heart Rate 1: 52 bpm Height: 6'1" Respiratory Rate: 22 bpm SpO2: 95% Tempera ture: 36.3 (C) / 97.3 (F) Weight: 325 lbs 09/09/2017 Blood Pressure 1: 162/90 Code: 8480-6 BMI: 42.5 Code: 91840-5 Heart Rate 1: 60 bpm Height: 6'1" Respiratory Rate: 24 bpm SpO2: 95% Tempera ture: 36.4 (C) / 97.6 (F) Weight: 322 lbs 08/07/2017 Blood Pressure 1: 152/90 Code: 8480-6 BMI: 42.2 Code: 62229-6 Heart Rate 1: 60 bpm Height: 6'1" Respiratory Rate: 26 bpm SpO2: 94% Tempera ture: 36.6 (C) / 97.8 (F) Weight: 320 lbs 08/04/2017 Blood Pressure 1: 150/86 Code: 8480-6 BMI: 42.7 Code: 54639-0 Heart Rate 1: 64 bpm Height: 6'1" Respiratory Rate: 20 bpm SpO2: 94% Tempera ture: 36.3 (C) / 97.3 (F) Weight: 324 lbs 06/04/2017 Blood Pressure 1: 164/90 Code: 8480-6 Heart Rate 1: 60 bpm Respiratory Rate: 24 bpm SpO2: 94% Temperature: 36.8 (C) / 98.3 (F) 06/02/2017 Blood Pressure 1: 162/80 Code: 8480-6 BMI: 42.9 Code: 15923-3 Heart Rate 1: 66 bpm Height: 6'1" Respiratory Rate: 22 bpm SpO2: 98% Tempera ture: 36.6 (C) / 97.8 (F) Weight: 325 lbs 05/05/2017 Blood Pressure 1: 164/94 Code: 8480-6 BMI: 41.4 Code: 90103-4 Heart Rate 1: 64 bpm Height: 6'1" Respiratory Rate: 22 bpm SpO2: 95% Tempera ture: 36.4 (C) / 97.5 (F) Weight: 314 lbs 04/10/2017 Blood Pressure 1: 136/78 Code: 8480-6 BMI: 42.0 Code: 44935-6 Heart Rate 1: 76 bpm Height: 6'1" Respiratory Rate: 24 bpm SpO2: 92% Tempera ture: 35.9 (C) / 96.7 (F) Weight: 318 lbs 02/03/2017 Blood Pressure 1: 134/82 Code: 8480-6 BMI: 41.7 Code: 73560-5 Heart Rate 1: 72 bpm Height: 6'1" Respiratory Rate: 24 bpm SpO2: 95% Tempera ture: 36.1 (C) / 97.0 (F) Weight: 316 lbs 10/30/2016 Blood Pressure 1: 126/ Code: 8480-6 BMI: 41.3 Code: 51037-0 Heart Rate 1: 68 bpm Height: 6'1" Respiratory Rate: 20 bpm Temperature: 37 .1 (C) / 98.8 (F) Weight: 313 lbs 08/30/2016 Blood Pressure 1: 146/80 Code: 8480-6 BMI: 41.7 Code: 72224-9 Heart Rate 1: 64 bpm Height: 6'1" Respiratory Rate: 24 bpm SpO2: 94% Tempera ture: 36.6 (C) / 97.8 (F) Weight: 316 lbs 08/27/2016 Blood Pressure 1: 12478 Code: 8480-6 Heart Rate 1: 66 bpm Height: 6'2" Respiratory Rate: 18 bpm SpO2: 94% Temperature: 36.6 (C) / 97.8 (F) Weight: 07/02/2016 Blood Pressure 1: 12678 Code: 8480-6 BMI: 41.4 Code: 67290-2 Heart Rate 1: 68 bpm Height: 6'1" Respiratory Rate: 24 bpm SpO2: 94% Tempera ture: 36.6 (C) / 97.8 (F) Weight: 314 lbs 06/14/2016 Blood Pressure 1: 146/82 Code: 8480-6 Heart Rate 1: 80 bpm Respiratory Rate: 20 bpm SpO2: 95% Temperature: 37.3 (C) / 99.2 (F) 06/13/2016 Blood Pressure 1: 146/84 Code: 8480-6 BMI: 40.5 Code: 13939-3 Heart Rate 1: 66 bpm Height: 6'1" Respiratory Rate: 28 bpm SpO2: 93% Tempera ture: 35.8 (C) / 96.4 (F) Weight: 307 lbs 05/14/2016 Blood Pressure 1: 146/90 Code: 8480-6 BMI: 41.2 Code: 67555-4 Heart Rate 1: 68 bpm Height: 6'1" Respiratory Rate: 26 bpm Temperature: 36 .8 (C) / 98.2 (F) Weight: 312 lbs 04/29/2016 Blood Pressure 1: 152/90 Code: 8480-6 BMI: 41.0 Code: 64248-5 Heart Rate 1: 68 bpm Height: 6'1" Respiratory Rate: 26 bpm SpO2: 94% Tempera ture: 36.1 (C) / 96.9 (F) Weight: 311 lbs 04/22/2016 Blood Pressure 1: 152/94 Code: 8480-6 BMI: 40.9 Code: 15530-6 Heart Rate 1: 68 bpm Height: 6'1" Respiratory Rate: 24 bpm SpO2: 94% Tempera ture: 36.2 (C) / 97.2 (F) Weight: 310 lbs 04/01/2016 Blood Pressure 1: 156/78 Code: 8480-6 BMI: 40.6 Code: 18018-1 Heart Rate 1: 84 bpm Height: 6'1" Respiratory Rate: 22 bpm SpO2: 95% Tempera ture: 37.1 (C) / 98.7 (F) Weight: 308 lbs 11/30/2015 Blood Pressure 1: 142/80 Code: 8480-6 BMI: 40.5 Code: 53891-7 Heart Rate 1: 88 bpm Height: 6'1" Respiratory Rate: 22 bpm Temperature: 36 .2 (C) / 97.2 (F) Weight: 307 lbs 08/29/2015 Blood Pressure 1: 132/70 Code: 8480-6 BMI: 40.0 Code: 54236-0 Heart Rate 1: 76 bpm Height: 6'1" Respiratory Rate: 24 bpm SpO2: 96% Tempera ture: 36.7 (C) / 98.0 (F) Weight: 303 lbs 08/14/2015 Blood Pressure 1: 126/80 Code: 8480-6 BMI: 39.4 Code: 17479-5 Heart Rate 1: 92 bpm Height: 6'1" Respiratory Rate: 24 bpm SpO2: 94% Tempera ture: 37.8 (C) / 100.0 (F) Weight: 299 lbs 08/09/2015 Blood Pressure 1: 146/82 Code: 8480-6 Heart Rate 1: 82 bpm Respiratory Rate: 22 bpm SpO2: 93% Temperature: 35.9 (C) / 96.6 (F) We ight: 310 lbs 05/22/2015 Blood Pressure 1: 156/76 Code: 8480-6 BMI: 41.0 Code: 95503-1 Heart Rate 1: 100 bpm Height: 6'1" Respiratory Rate: 22 bpm Temperature: 37 .2 (C) / 98.9 (F) Weight: 311 lbs 02/13/2015 Blood Pressure 1: 166/90 Code: 8480-6 BMI: 41.2 Code: 76894-8 Heart Rate 1: 72 bpm Height: 6'1" Respiratory Rate: 24 bpm SpO2: 93% Tempera ture: 36.9 (C) / 98.5 (F) Weight: 312 lbs 11/07/2014 Blood Pressure 1: 134/70 Code: 8480-6 BMI: 40.5 Code: 44772-0 Heart Rate 1: 76 bpm Height: 6'1" Respiratory Rate: 24 bpm Temperature: 36 .9 (C) / 98.4 (F) Weight: 307 lbs 10/04/2014 Blood Pressure 1: 144/86 Code: 8480-6 BMI: 40.1 Code: 52493-3 Heart Rate 1: 76 bpm Height: 6'1" Respiratory Rate: 28 bpm Temperature: 36 .6 (C) / 97.9 (F) Weight: 304 lbs 09/22/2014 Blood Pressure 1: 142/80 Code: 8480-6 BMI: 40.0 Code: 47228-7 Heart Rate 1: 80 bpm Height: 6'1" Respiratory Rate: 22 bpm SpO2: 96% Tempera ture: 36.6 (C) / 97.8 (F) Weight: 303 lbs 09/21/2014 Blood Pressure 1: 160/66 Code: 8480-6 BMI: 40.0 Code: 18311-0 Heart Rate 1: 90 bpm Height: 6'1" Respiratory Rate: 26 bpm SpO2: 94% Tempera ture: 35.7 (C) / 96.2 (F) Weight: 303 lbs 06/28/2014 Blood Pressure 1: 132/80 Code: 8480-6 BMI: 41.0 Code: 78481-6 Heart Rate 1: 64 bpm Height: 6' Respiratory Rate: 20 bpm Temperature: 36 .7 (C) / 98.0 (F) Weight: 302 lbs 06/10/2014 Blood Pressure 1: 152/70 Code: 8480-6 BMI: 41.1 Code: 62015-0 Heart Rate 1: 76 bpm Height: 6' Respiratory Rate: 20 bpm Temperature: 36 .6 (C) / 97.8 (F) Weight: 303 lbs 03/29/2014 Blood Pressure 1: 132/78 Code: 8480-6 BMI: 40.6 Code: 35502-9 Heart Rate 1: 84 bpm Height: 6' Respiratory Rate: 22 bpm Temperature: 37 .1 (C) / 98.8 (F) Weight: 299 lbs 11/30/2013 Blood Pressure 1: 136/84 Code: 8480-6 BMI: 39.2 Code: 90735-6 Heart Rate 1: 76 bpm Height: 6' Respiratory Rate: 20 bpm Temperature: 36 .8 (C) / 98.2 (F) Weight: 289 lbs 08/03/2013 Blood Pressure 1: 144/80 Code: 8480-6 Heart Rate 1: 86 bpm Respiratory Rate: 20 bpm Temperature: 36.6 (C) / 97.8 (F) Weight: 296 lbs 04/06/2013 Blood Pressure 1: 142/90 Code: 8480-6 BMI: 40.3 Code: 17478-3 Heart Rate 1: 88 bpm Height: 6' Respiratory Rate: 20 bpm Temperature: 36 .6 (C) / 97.8 (F) Weight: 297 lbs 12/01/2012 Blood Pressure 1: 124/78 Code: 8480-6 BMI: 38.7 Code: 29824-1 Heart Rate 1: 76 bpm Height: 6' Respiratory Rate: 20 bpm Temperature: 37 .2 (C) / 98.9 (F) Weight: 285 lbs 08/04/2012 Blood Pressure 1: 128/80 Code: 8480-6 BMI: 38.2 Code: 69822-0 Heart Rate 1: 76 bpm Height: 6' Respiratory Rate: 20 bpm Temperature: 37 .0 (C) / 98.6 (F) Weight: 282 lbs 05/29/2012 Blood Pressure 1: 138/78 Code: 8480-6 BMI: 36.6 Code: 57466-7 Heart Rate 1: 66 bpm Height: 6' Temperature: 36.7 (C) / 98.1 (F) Weight: 270 lbs 05/25/2012 Blood Pressure 1: 128/72 Code: 8480-6 BMI: 39.9 Code: 61585-7 Heart Rate 1: 74 bpm Height: 6' Temperature: 36.1 (C) / 97.0 (F) Weight: 294 lbs 04/07/2012 Blood Pressure 1: 124/76 Code: 8480-6 BMI: 39.9 Code: 99738-0 Heart Rate 1: 72 bpm Height: 6' Respiratory Rate: 20 bpm Temperature: 36 .9 (C) / 98.5 (F) Weight: 294 lbs 12/16/2011 Blood Pressure 1: 128/80 Code: 8480-6 BMI: 40.8 Code: 37958-1 Heart Rate 1: 74 bpm Height: 6' Temperature: 36.6 (C) / 97.8 (F) Weight: 301 lbs 12/03/2011 Blood Pressure 1: 132/76 Code: 8480-6 BMI: 40.8 Code: 63100-3 Heart Rate 1: 68 bpm Height: 6' Respiratory Rate: 20 bpm Temperature: 36 .8 (C) / 98.2 (F) Weight: 301 lbs 08/29/2011 Blood Pressure 1: 140/68 Code: 8480-6 BMI: 40.8 Code: 65816-3 Heart Rate 1: 80 bpm Height: 6' Respiratory Rate: 20 bpm Temperature: 36 .4 (C) / 97.6 (F) Weight: 301 lbs 05/30/2011 Blood Pressure 1: 134/82 Code: 8480-6 BMI: 41.5 Code: 77225-4 Heart Rate 1: 76 bpm Height: 6' [...] 1: 126/72 Code: 8480-6 BMI: 41.2 Code: 72284-8 Heart Rate 1: 76 bpm Height: 6' [...] 1: 152/90 Code: 8480-6 BMI: 37.7 Code: 11413-4 Heart Rate 1: 92 bpm Height: 6'1" [...] Codes Date () OFFICE/OUTPATIENT VISIT EST Diagnosis: Sore on toe[ICD10: L98.9] Neela VASQUEZ [place] CPT-4: 18844 07/06/2019 ([id number]) OFFICE/OUTPATIENT VISIT EST Diagnosis: Advanced chronic obstructive pulmonary disease[ICD10: J44.9] 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] Neela QURESHI [employer] [place] CPT-4: 59926 05/10/2019 ([id number]) OFFICE/OUTPATIENT VISIT EST Diagnosis: Chronic obstructive pulmonary disease with (acute) exacerbation[ICD10: J44.1] Diagnosis: Hypokalemia[ICD10: E87.6] 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] Neela QURESHI [employer] ZHANG [place] CPT-4: 40140 03/29/2019 ([id number]) NURSE/OUTPATIENT VISIT EST Diagnosis: PNEUMOCOCCAL VACCINE[ICD10: Z23] Neela HYMAN [place] CPT-4: 86521 03/04/2019 ([id number]) OFFICE/OUTPATIENT VISIT EST Diagnosis: Chronic obstructive pulmonary disease with (acute) exacerbation[ICD10: J44.1] Diagnosis: Other nonspecific abnormal finding of lung field[ICD10: R91.8] Neela HYMAN [place] CPT-4: 06509 01/05/2019 ([id number]) OFFICE/OUTPATIENT VISIT EST Diagnosis: Solitary pulmonary nodule[ICD10: R91.1] 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] Diagnosis: Tinea corporis[ICD10: B35.4] Neela HYMAN [employer] [facility] CPT-4: 43126 12/09/2018 ([id number]) OFFICE/OUTPATIENT VISIT EST Diagnosis: COUGH[ICD10: R05] Diagnosis: Chronic obstructive pulmonary disease, unspecified[ICD10: J44.9] Diagnosis: Other disorders of lung[ICD10: J98.4] Diagnosis: Other nonspecific abnormal finding of lung field[ICD10: R91.8] Neela HYMAN [employer] [facility] CPT-4: 92653 11/24/2018 ([id number]) OFFICE/OUTPATIENT VISIT EST Diagnosis: Pneumonia, unspecified organism[ICD10: J18.9] Amita HYMAN [employer] [facility] CPT-4: 52820 09/16/2018 ([id number]) OFFICE/OUTPATIENT VISIT EST Diagnosis: Pneumonia, unspecified organism[ICD10: J18.9] Neela HYMAN [employer] [facility] CPT-4: 01911 09/03/2018 ([id number]) OFFICE/OUTPATIENT VISIT EST Diagnosis: Personal history of pneumonia (recurrent)[ICD10: Z87.01] Diagnosis: Cough[ICD10: R05] Diagnosis: Essential (primary) hypertension[ICD10: I10] Diagnosis: Type 2 diabetes mellitus with hyperglycemia[ICD10: E11.65] Amita ZHANG [employer] [facility] CPT-4: 77006 08/27/2018 OFFICE/OUTPATIENT VISIT EST Diagnosis: Pneumonia, unspecified organism[ICD10: J18.9] Diagnosis: Chronic obstructive pulmonary disease with (acute) exacerbation[ICD10: J44.1] Diagnosis: Other specified symptoms and signs involving the circulatory and respiratory systems[ICD10: R09.89] Diagnosis: Essential (primary) hypertension[ICD10: I10] Amita MURILLO [email or web address] CPT-4: 55066 08/13/2018 OFFICE/OUTPATIENT VISIT EST Diagnosis: Pneumonia, unspecified organism[ICD10: J18.9] Diagnosis: Other specified symptoms and signs involving the circulatory and respiratory systems[ICD10: R09.89] Amita HYMAN DO [facility] CPT-4: 26755 08/11/2018 ([id number]) OFFICE/OUTPATIENT VISIT EST Diagnosis: Dyspnea, unspecified[ICD10: R06.00] Diagnosis: Chronic obstructive pulmonary disease with (acute) exacerbation[ICD10: J44.1] Diagnosis: Pneumonia, unspecified organism[ICD10: J18.9] Amita HYMAN [employer] [facility] CPT-4: 77358 07/16/2018 ([id number]) OFFICE/OUTPATIENT VISIT EST Diagnosis: Acute bronchitis due to other specified organisms[ICD10: J20.8] Diagnosis: Cough[ICD10: R05] Amita HYMAN [employer] [facility] T-4: 73723 07/13/2018 ([id number]) OFFICE/OUTPATIENT VISIT EST Diagnosis: Essential (primary) hypertension[ICD10: I10] Diagnosis: Chronic obstructive pulmonary disease, unspecified[ICD10: J44.9] Diagnosis: Type 2 diabetes mellitus with hyperglycemia[ICD10: E11.65] Diagnosis: Mixed hyperlipidemia[ICD10: E78.2] Neela Sergemelany STERLING Octavio LAWLERNuenz [employer] [facility] CPT-4: 15763 06/03/2018 ([id number]) OFFICE/OUTPATIENT VISIT EST Diagnosis: Chronic obstructive pulmonary disease, unspecified[ICD10: J44.9] Gely Harp [facility]A [facility] CPT-[facility]: 31278 05/04/2018 ([id number]) OFFICE/OUTPATIENT VISIT EST Diagnosis: Essential (primary) hypertension[ICD10: I10] Diagnosis: Localized edema[ICD10: R60.0] Neela MURILLO JulissaMendez YENNI [employer] [facility] CPT-4: 49360 03/03/2018 ([id number]) OFFICE/OUTPATIENT VISIT EST Diagnosis: Localized edema[ICD10: R60.0] Neela MURILLO JulissaMendez VICENTE [employer] [facility] CPT-4: 90987 02/17/2018 ([id number]) OFFICE/OUTPATIENT VISIT EST Diagnosis: FLU VACCINE[ICD10: Z23] Diagnosis: PNEUMOCOCCAL VACCINE[ICD10: Z23] Diagnosis: Type 2 diabetes mellitus without complications[ICD10: E11.9] Diagnosis: Mixed hyperlipidemia[ICD10: E78.2] Diagnosis: Essential (primary) hypertension[ICD10: I10] Diagnosis: Localized edema[ICD10: R60.0] Diagnosis: Chronic obstructive pulmonary disease, unspecified[ICD10: J44.9] Neela Cunningham SERGEGEMMAHAO [employer] [facility] CPT-4: 40518 02/10/2018 ([id number]) OFFICE/OUTPATIENT VISIT EST Diagnosis: Type 2 diabetes mellitus with hyperglycemia[ICD10: E11.65] Diagnosis: Mixed hyperlipidemia[ICD10: E78.2] Diagnosis: Essential (primary) hypertension[ICD10: I10] Diagnosis: Chronic obstructive pulmonary disease, unspecified[ICD10: J44.9] Diagnosis: Cutaneous abscess of back [any part, except buttock][ICD10: L02.212] Neela Cunningham [place] [facility] CPT-4: 72100 11/05/2017 ([id number]) OFFICE/OUTPATIENT VISIT EST Diagnosis: Allergic urticaria[ICD10: L50.0] Gely Harp NELEA [facility] CPT-4: 36302 09/09/2017 ([id number]) OFFICE/OUTPATIENT VISIT EST Diagnosis: Generalized enlarged lymph nodes[ICD10: R59.1] Diagnosis: Acute gastritis without bleeding[ICD10: K29.00] Gely Harp NEELA Cunningham [place] [facility] CPT-4: 83157 08/07/2017 ([id number]) OFFICE/OUTPATIENT VISIT EST Diagnosis: Type 2 diabetes mellitus without complications[ICD10: E11.9] Diagnosis: Mixed hyperlipidemia[ICD10: E78.2] Diagnosis: Essential (primary) hypertension[ICD10: I10] Neela Cunningham [place] [facility] CPT-4: 53084 08/04/2017 ([id number]) OFFICE/OUTPATIENT VISIT EST Diagnosis: Zoster without complications[ICD10: B02.9] Diagnosis: Acute sialoadenitis[ICD10: K11.21] Gely Harp RONNA Cunningham [place] [facility] CPT-4: 62922 06/04/2017 OFFICE/OUTPATIENT VISIT EST Diagnosis: Zoster without complications[ICD10: B02.9] Diagnosis: Acute sialoadenitis[ICD10: K11.21] Gely HYMAN [employer] [facility] CPT-4: 63291 06/02/2017 ([id number]) OFFICE/OUTPATIENT VISIT EST Diagnosis: Type 2 diabetes mellitus without complications[ICD10: E11.9] Diagnosis: Mixed hyperlipidemia[ICD10: E78.2] Diagnosis: Essential (primary) hypertension[ICD10: I10] Diagnosis: Chronic obstructive pulmonary disease, unspecified[ICD10: J44.9] Neela HYMAN [employer] [facility] CPT-4: 96262 05/05/2017 OFFICE/OUTPATIENT VISIT EST Diagnosis: Chronic obstructive pulmonary disease with acute lower respiratory infection[ICD10: J44.0] Diagnosis: Impacted cerumen, bilateral[ICD10: H61.23] Gely HYMAN [employer] [facility] CPT-4: 17907 04/10/2017 ([id number]) OFFICE/OUTPATIENT VISIT EST Diagnosis: FLU VACCINE[ICD10: Z23] Neela ZHANG [employer] [facility] CPT-4: 95087 03/28/2017 ([id number]) OFFICE/OUTPATIENT VISIT EST Diagnosis: Type 2 diabetes mellitus without complications[ICD10: E11.9] Diagnosis: Mixed hyperlipidemia[ICD10: E78.2] Diagnosis: Essential (primary) hypertension[ICD10: I10] Diagnosis: Chronic obstructive pulmonary disease, unspecified[ICD10: J44.9] Neela HYMAN [employer] [facility] CPT-4: 74405 02/03/2017 ([id number]) OFFICE/OUTPATIENT VISIT EST Diagnosis: Type 2 diabetes mellitus with hyperglycemia[ICD10: E11.65] Diagnosis: Mixed hyperlipidemia[ICD10: E78.2] Diagnosis: Essential (primary) hypertension[ICD10: I10] Diagnosis: Chronic obstructive pulmonary disease, unspecified[ICD10: J44.9] Neela ZHANG [employer] [facility] CPT-4: 50633 10/30/2016 ([id number]) NO CHARGE Diagnosis: Acute bronchitis, unspecified[ICD10: J20.9] Sammi HYMAN DO [facility] CPT-4: 06528 08/30/2016 ([id number]) OFFICE/OUTPATIENT VISIT EST Diagnosis: Acute bronchitis, unspecified[ICD10: J20.9] Diagnosis: Other seasonal allergic rhinitis[ICD10: J30.2] Sammi HYMAN DO [facility] CPT-4: 07145 08/27/2016 ([id number]) OFFICE/OUTPATIENT VISIT EST Diagnosis: Type 2 diabetes mellitus without complications[ICD10: E11.9] Diagnosis: Mixed hyperlipidemia[ICD10: E78.2] Diagnosis: Essential (primary) hypertension[ICD10: I10] Neela HYMAN DO [facility] CPT-4: 62684 07/02/2016 ([id number]) OFFICE/OUTPATIENT VISIT EST Diagnosis: Acute bronchitis, unspecified[ICD10: J20.9] Sammi HYMAN [employer] [facility] CPT-4: 76378 06/14/2016 ([id number]) OFFICE/OUTPATIENT VISIT EST Diagnosis: Acute bronchitis, unspecified[ICD10: J20.9] Sammi HYMAN [employer] [facility] CPT-4: 88935 06/13/2016 ([id number]) OFFICE/OUTPATIENT VISIT EST Diagnosis: Essential (primary) hypertension[ICD10: I10] Neela HYMAN DO [facility] CPT-4: 62819 05/14/2016 ([id number]) OFFICE/OUTPATIENT VISIT EST Diagnosis: Essential (primary) hypertension[ICD10: I10] Neela HYMAN DO [facility] CPT-4: 27554 04/29/2016 ([id number]) OFFICE/OUTPATIENT VISIT EST Diagnosis: Unspecified abdominal pain[ICD10: R10.9] Diagnosis: Left lower quadrant pain[ICD10: R10.32] Diagnosis: Left upper quadrant pain[ICD10: R10.12] Diagnosis: Essential (primary) hypertension[ICD10: I10] Neela HYMAN [employer] [facility] CPT-4: 84366 04/22/2016 ([id number]) OFFICE/OUTPATIENT VISIT EST Diagnosis: Type 2 diabetes mellitus without complications[ICD10: E11.9] Diagnosis: Mixed hyperlipidemia[ICD10: E78.2] Diagnosis: Essential (primary) hypertension[ICD10: I10] Neela HYMAN DO [facility] CPT-4: 80819 04/01/2016 ([id number]) OFFICE/OUTPATIENT VISIT EST Diagnosis: Type 2 diabetes mellitus with hyperglycemia[ICD10: E11.65] Diagnosis: Mixed hyperlipidemia[ICD10: E78.2] Diagnosis: Essential (primary) hypertension[ICD10: I10] Neela HYMAN DO [facility] CPT-4: 47672 11/30/2015 ([id number]) OFFICE/OUTPATIENT VISIT EST Diagnosis: Type 2 diabetes mellitus with diabetic neuropathy, unspecified[ICD10: E11.40] Diagnosis: Essential (primary) hypertension[ICD10: I10] Diagnosis: Mixed hyperlipidemia[ICD10: E78.2] Neela FRIEND ASHER HYMAN DO [facility] CPT-4: 73255 08/29/2015 ([id number]) OFFICE/OUTPATIENT VISIT EST Diagnosis: COUGH[ICD10: R05] Diagnosis: Wheezing[ICD10: R06.2] Diagnosis: Type 2 diabetes mellitus with diabetic neuropathy, unspecified[ICD10: E11.40] Neela HYMAN DO [facility] CPT-4: 32688 08/14/2015 ([id number]) OFFICE/OUTPATIENT VISIT EST Diagnosis: Other seasonal allergic rhinitis[ICD10: J30.2] Diagnosis: Dyspnea, unspecified[ICD10: R06.00] Diagnosis: Wheezing[ICD10: R06.2] Sammicharly MIRZALINE Octavio HYMAN DO [facility] CPT-4: 04397 08/09/2015 ([id number]) OFFICE/OUTPATIENT VISIT EST Diagnosis: Essential (primary) hypertension[ICD10: I10] Diagnosis: Type 2 diabetes mellitus with hyperglycemia[ICD10: E11.65] Diagnosis: Mixed hyperlipidemia[ICD10: E78.2] Neela Zhanghao RONNA ASHER HYMAN DO [facility] CPT-4: 97457 05/22/2015 ([id number]) OFFICE/OUTPATIENT VISIT EST Diagnosis: DM W/O COMPLICATION TYPE II[ICD9: 250.00] Diagnosis: - I - HYPERTENSION[ICD9: 401.9] Diagnosis: - I - HYPERLIPIDEMIA NEC/NOS[ICD9: 272.4] Diagnosis: Left hand paresthesia[ICD9: 782.0] Neela Sergegemmahao HYMAN [facility] CPT-4: 37352 02/13/2015 ([id number]) OFFICE/OUTPATIENT VISIT EST Diagnosis: HYPERLIPIDEMIA NEC/NOS[ICD9: 272.4] Diagnosis: DM W/O COMPLICATION TYPE II[ICD9: 250.00] Neela [facility] CPT-4: 55507 11/07/2014 ([id number]) OFFICE/OUTPATIENT VISIT EST Diagnosis: ALLERGIC RHINITIS[ICD9: 477.9] Diagnosis: WHEEZING[ICD9: 786.07] Neela Duarte [facility] CPT-4: 59106 10/04/2014 ([id number]) OFFICE/OUTPATIENT VISIT EST Diagnosis: BRONCHITIS, ACUTE[ICD9: 466.0] Diagnosis: WHEEZING[ICD9: 786.07] Loren Duarte [facility] CPT-4: 01108 09/22/2014 ([id number]) OFFICE/OUTPATIENT VISIT EST Diagnosis: DYSPNEA[ICD9: 786.09] Diagnosis: WHEEZING[ICD9: 786.07] Diagnosis: Arrhythmia[ICD9: 427.9] Loren BUI [facility] CPT-4: 56718 09/21/2014 ([id number]) OFFICE/OUTPATIENT VISIT EST Diagnosis: DM W/O COMPLICATION TYPE II, 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] Diagnosis: - I - HYPERLIPIDEMIA NEC/NOS[ICD9: 272.4] Diagnosis: - I - HYPERTENSION[ICD9: 401.9] Neela Sergegemmahao NEELA Octavio [facility] CPT-4: 12729 06/28/2014 OFFICE/OUTPATIENT VISIT EST Diagnosis: SINUSITIS, ACUTE[ICD9: 461.9] Diagnosis: OTITIS MEDIA NOS[ICD9: 382.9] Sarah ANNQUELINE Octavio [facility]: 62065 06/10/2014 ([id number]) OFFICE/OUTPATIENT VISIT EST Diagnosis: DM W/O COMPLICATION TYPE II[ICD9: 250.00] Diagnosis: - I - HYPERLIPIDEMIA NEC/NOS[ICD9: 272.4] Diagnosis: - I - HYPERTENSION[ICD9: 401.9] Neela [facility] CPT-4: 03513 03/29/2014 ([id number]) OFFICE/OUTPATIENT VISIT EST Diagnosis: DM W/O COMPLICATION TYPE II[ICD9: 250.00] Diagnosis: - I - HYPERTENSION[ICD9: 401.9] Diagnosis: - I - HYPERLIPIDEMIA NEC/NOS[ICD9: 272.4] Diagnosis: Hand lesion[ICD9: 709.9] Neela MADRIGAL [facility] CPT-4: 69659 11/30/2013 ([id number]) OFFICE/OUTPATIENT VISIT EST Diagnosis: DM W/O COMPLICATION TYPE II[ICD9: 250.00] Diagnosis: HYPERLIPIDEMIA NEC/NOS[ICD9: 272.4] Diagnosis: HYPERTENSION[ICD9: 401.9] [facility]: 50075 08/03/2013 ([id number]) OFFICE/OUTPATIENT VISIT EST Diagnosis: DM W/O COMPLICATION TYPE II, 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] Diagnosis: HYPERTENSION[ICD9: 401.9] Diagnosis: HYPERLIPIDEMIA NEC/NOS[ICD9: 272.4] Neela Yenni GREGORIO SMendez [facility] CPT-[facility]: 72128 04/06/2013 ([id number]) OFFICE/OUTPATIENT VISIT EST Diagnosis: DM W/O COMPLICATION TYPE II[ICD9: 250.00] Diagnosis: HYPERLIPIDEMIA NEC/NOS[ICD9: 272.4] Diagnosis: HYPERTENSION[ICD9: 401.9] Neela FRENCHR [facility] CPT-4: 77676 12/01/2012 ([id number]) OFFICE/OUTPATIENT VISIT EST Diagnosis: DM W/O COMPLICATION TYPE II[ICD9: 250.00] Diagnosis: HYPERTENSION[ICD9: 401.9] Diagnosis: HYPERLIPIDEMIA NEC/NOS[ICD9: 272.4] Neela Sergegemmahao ARMAAN DARLINE SMendez [facility] CPT-[facility]: 90783 08/04/2012 ([id number]) OFFICE/OUTPATIENT VISIT EST Diagnosis: URINARY FREQUENCY[ICD9: 788.41] Neela Cunningham SERGENDER [facility] CPT-4: 76609 06/01/2012 OFFICE/OUTPATIENT VISIT EST Diagnosis: Agitation[ICD9: 307.9] Diagnosis: Frequent urination[ICD9: 788.41] Janet Jean Baptiste NEELA Cunningham SERGENDER [facility] CPT-4: 27821 05/29/2012 OFFICE/OUTPATIENT VISIT EST Diagnosis: SINUSITIS, ACUTE[ICD9: 461.9] Diagnosis: OTALGIA[ICD9: 388.70] Neela Cunningham SERGENDER [facility] CPT-4: 67974 05/25/2012 OFFICE/OUTPATIENT VISIT EST Diagnosis: DM W/O COMPLICATION TYPE II, 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] Diagnosis: HYPERTENSION[ICD9: 401.9] Diagnosis: HYPERLIPIDEMIA NEC/NOS[ICD9: 272.4] Neela GREGORIO SMendez SERGENDER [facility] CPT-4: 09568 04/07/2012 OFFICE/OUTPATIENT VISIT EST Diagnosis: FINGER INJURY[ICD9: 959.5] Janet Jean Baptiste NEELA Cunningham [facility] CPT-4: 14332 12/16/2011 ([id number]) OFFICE/OUTPATIENT VISIT EST Diagnosis: DM W/O COMPLICATION TYPE II, 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] Diagnosis: HYPERTENSION[ICD9: 401.9] Diagnosis: HYPERLIPIDEMIA NEC/NOS[ICD9: 272.4] Neela GREGORIO S. SERGENDER [employer] [facility] CPT-4: 62548 12/03/2011 ([id number]) OFFICE/OUTPATIENT VISIT EST Diagnosis: DM W/O COMPLICATION TYPE II[ICD9: 250.00] Diagnosis: HYPERLIPIDEMIA NEC/NOS[ICD9: 272.4] Diagnosis: HYPERTENSION[ICD9: 401.9] Neela Cunningham SERGE NDER [facility] CPT-4: 25530 08/29/2011 OFFICE/OUTPATIENT VISIT EST Diagnosis: DM W/O COMPLICATION TYPE II[ICD9: 250.00] Diagnosis: HYPERLIPIDEMIA NEC/NOS[ICD9: 272.4] Diagnosis: HYPERTENSION[ICD9: 401.9] Neela Cunningham [employer] [facility] CPT-4: 57115 05/30/2011 OFFICE/OUTPATIENT VISIT EST Diagnosis: SKIN SENSATION DISTURB[ICD9: 782.0] Neela GREGORIO SMendez ORENDER DO [facility] CPT-4: 85502 01/29/2011 OFFICE/OUTPATIENT VISIT EST Diagnosis: SKIN SENSATION DISTURB[ICD9: 782.0] Neela GREGORIO SMendez [employer] [employer] [facility] CPT-4: 35124 01/14/2011 OFFICE/OUTPATIENT VISIT EST Neela LAWLER NDER DO [facility] CPT- 4: 55939 01/01/2011 OFFICE/OUTPATIENT VISIT EST Neela Cunningham [employer] [facility] CPT- 4: 77258 11/29/2010 ([id number]) OFFICE/OUTPATIENT VISIT EST Neela HORAN SMendez ORENDER DO [facility] CPT-4: 60388 08/28/2010 ([id number]) OFFICE/OUTPATIENT VISIT, EST Neela WILDE SMendez ORENDER DO [facility] CPT-4: 43136 06/05/2010 ([id number]) OFFICE/OUTPATIENT VISIT, EST Neela WILDE S. ORENDER DO [facility] CPT-4: 95371 02/05/2010 ([id number]) OFFICE/OUTPATIENT VISIT, EST Neela WILDE S. ORENDER DO [facility] CPT-4: 47992 10/09/2009 ([id number]) OFFICE/OUTPATIENT VISIT, EST Neela WILDE S. ORENDER DO [facility] CPT-4: 32715 08/22/2009 Plan of Care Planned Activity Notes Codes Status Date Visit Diagnosis Plan: Sore on toe Discussion: Keep farhat an/dry Keflex Notify if worsens ICD-9 : 709.9 ICD-10 : L98.9 07/06/2019 Appointment: Neela [facility]yman [facility]el[facility] [phone] [facility] [facility] 07/06/2019 Patient Education: Abdoulaye Blue [id number] https://www.HealthEdge.com/samplemd/resources/getResource/61/8by974tx-81t2-4e78-33 Completed 07/06/2019 Visit Diagnosis Plan: Advanced chronic obstructive pul monary disease Discussion: Continue oxygen and pulmonary rehab Follow Up: 3 months ICD-9 : 496 ICD-10 : J44.9 05/10/2019 Visit Diagnosis Plan: Lymphoma involving lung Discussi on: Doing weekly lab and chemo ICD-9 : 202.82 ICD-10 : C85.99 05/10/2019 Appointment: Neela Hyman WPtel: [address] [place], [place] [phone] FOLLOW UP 05/10/2019 Appointment: Neela Hymantel: [address] [place], [place] [phone] [place] he called 04/14/19-- he was at [...] : E87.6 03/29/2019 Appointment: Neela Hyman WPtel: [address] [place], [place] [phone] Hospital Follow Up 03/29/2019 Appointment: Neela Hyman WPtel: [address] [place], [place] [phone] [place] INJECTION 03/04/2019 Visit Diagnosis Plan: Chronic obstructiv e pulmonary disease with (acute) exacerbation Discussion: Increase SVNS with duoneb to QID Prednisone taper ICD-9 : 491.21 ICD-10 : J44.1 01/05/2019 Visit Diagnosis Plan: Other nonspecific abnormal findi ng of lung field Discussion: Referral to pulmonology--will likely need bronchoscopy--path results discussed ICD-9 : 786.6 ICD-10 : R91.8 01/05/2019 Appointment: Neela Hyman WPtel: [address] [place], [place] [address] [place] FOLLOW UP 01/05/2019 Patient Education: prednisone- [employer] Coupon [id number] https://www.Variab.ly/HealthEdge/resources/getResource/61/w7dp1667-615b-0w47-wi Completed 01/05/2019 Care Plan: Referral Order SNOMED-CT : 30 [id number] Pending 01/05/2019 Appointment: Neela Hyman WPtel: [address] [place], [place] [phone] [place] CANCELED 12/21/2018 Visit Diagnosis Plan: Tinea corporis Discussion: Diflu can--hold simvastatin and fenofibrate while taking ICD-9 : 110.5 ICD-10 : B35.4 12/09/2018 Visit Diagnosis Plan: Solitary pulmonary nodule Discus esmer: CT guided needle biopsy of RUL lung mass ICD-9 : 793.11 ICD-10 : R91.1 12/09/2018 Appointment: Neela Hyman WPtel: [address] [place], [place] [address] [place] FOLLOW UP 12/09/2018 Appointment: Gely Harp [address] [place] [address] [place] NO SHOW 12/01/2018 Visit Diagnosis Plan: [...] 496 ICD-10 : J44.9 11/24/2018 Appointment: Neela Hymanl: [address] [place], [place] [phone] [place] FOLLOW UP 11/24/2018 Care Plan: PET IMAGE FULL BODY LOINC : 4 2711-2 Pending 11/24/2018 Appointment: Neela Hyman WPtel: [address] [place] [address] [place] Consult 09/21/2018 Visit Diagnosis Plan: Pneumonia, unspecified organism Discussion: Patient clinically improved. Recent CT scan from 09/07 showed unresolved right upper lobe pneumonia. Finished another 7 days of levaquin. Will repeat CBC early next week. Order sent with patient to get done at [facility]. FU CT recommended in 4 weeks. Patient states understanding. ICD-9 : 486 ICD-10 : J18.9 09/16/2018 Appointment: Amita Henderson [facility] [place] [address] FOLLOW UP 09/16/2018 Visit Diagnosis Plan: Pneumonia, unspecified organism Discussion: Clinically patient feels and looks much better but need CT scan of chest due to ongoing round pneumonia in association with his known lymphoma ICD-9 : 486 ICD-10 : J18.9 09/03/2018 Appointment: Neela Hyman WPtel: [address] [place] [address] FOLLOW UP 09/03/2018 Care Plan: CT THORAX [...] ICD-10 : Z87.01 08/27/2018 Appointment: Amita Henderson [facility] [place] [facility] FOLLOW UP 08/27/2018 Visit Diagnosis Plan: Other [...] ICD-10 : I10 08/13/2018 Appointment: Amita Henderson [facility] [place] [facility] [facility] FOLLOW UP 08/13/2018 Appointment: Amita Henderson [facility] [place] [facility] CANCELED 08/13/2018 Patient Education: prednisone- [employer] Coupon [phone] https://www.HealthEdge.Universal Devices/samplemd/resources/getResource/61/if30zi4g-1s54-2qx8-6s Completed 08/13/2018 Visit Diagnosis Plan: Other specified [...] ICD-10 : J18.9 08/11/2018 Appointment: Amita Henderson [facility] [place] [facility] ACUTE ILLNESS 08/11/2018 Care Plan: CHEST X-RAY 2VW FRONTAL&LATL LOINC : 53062-8 Pending 07/20/2018 Visit Diagnosis Plan: Dyspnea, unspecified Discussion: CXR- to be completed at the hospital. Will call with results and any adjustments in plan. Solumedrol 125 administered in clinic Prednisone 20 mg BID x 5 days- start tomorrow ICD-9 : 786.09 ICD-10 : R06.00 07/16/2018 Appointment: Amita Henderson [address] [place], [place] [phone] ACUTE ILLNESS 07/16/2018 Patient Education: prednisone- [employer] Coupon [id number] https://www.Variab.ly/Sporterpilotmd/resources/getResource/61/43k0a6vw-hg72-3yz1-r8 Completed 07/16/2018 Visit Diagnosis Plan: Acute bronchitis due to other sp ecified organisms Discussion: Kenalog 40 mg IM administered in clinic. Doxycycline called into [facility]. Take as directed. Continue nebulizer and Trelegy. Follow up if symptoms are not improving with treatment regimen. Patient states understanding of all instruction. ICD-9 : 466.0 ICD-10 : J20.8 07/13/2018 Appointment: Amita Henderson [facility] [place] [facility] ACUTE ILLNESS 07/13/2018 Patient Education: doxycycline hyclate- OptimizeRX Cou saritha [id number] https://www.Variab.ly/samplemd/resources/getResource/61/6x704e92-5f3y-9009-1z Completed 07/13/2018 Care Plan: [place] : [address]-8 Pending 07/13/2018 Care Plan: CBC Pending 07/13/2018 Care Plan: A1C HPLC LOINC : 49217-9 Pending 07/13/2018 Visit Diagnosis Plan: Mixed hyperlipidemia [...] : I10 06/03/2018 Appointment: Neela Hyman WPtel: [address] [place] [address] [place] FOLLOW UP 06/03/2018 Visit Diagnosis Plan: [...] ICD-10 : J44.9 05/04/2018 Appointment: Gely Harp [address] [place] [address] ACUTE ILLNESS 05/04/2018 Visit Diagnosis Plan: Localized edema Discussion: Cont inue lasix and potassium at every other day Recheck lab and fwup in 3mos Follow Up: 3 months ICD-9 : 782.3 ICD-10 : R60.0 03/03/2018 Appointment: Neela Hyman WPtel: [address] [place] [address] [place] FOLLOW UP 03/03/2018 Patient Education: Patient Medication Summary Completed 03/03/2018 Visit Diagnosis Plan: Localized edema Discussion: Finch ge lasix and potassium to every other day Check Chem 7 in 2 weeks and fwup ICD-9 : 782.3 ICD-10 : R60.0 02/17/2018 Appointment: Ne[facility]yman [facility]Ptel: [phone] [facility] [place] FOLLOW UP 02/17/2018 Patient Education: Patient [...] R60.0 02/10/2018 Appointment: Neela [facility]yman WPtel: [phone] [facility] [place] FOLLOW UP 02/10/2018 Patient Education: Patient [...] L02.212 11/05/2017 Appointment: Neela Hyman WPtel: [phone] FOLLOW UP 11/05/2017 Patient Education: Patient Medication Summary Completed 11/05/2017 Patient Education: Patient Medication Summary Completed 11/03/2017 Care Plan: [place] : [address]-8 Pending 11/03/2017 Care Plan: LIPID PANEL LOINC : 02584-3 Pending 11/03/2017 Care Plan: CBC Pending 11/03/2017 Care Plan: A1C HPLC LOINC : 53168-8 Pending 11/03/2017 Visit Diagnosis Plan: Allergic urticaria [...] ICD-10 : L50.0 09/09/2017 Appointment: Gely Harp [address] [place] [address] ACUTE ILLNESS 09/09/2017 Patient Education: Patient Medication [...] ICD-10 : R59.1 08/07/2017 Appointment: Gely Harp [facility] [place] [address] Follow Up 08/07/2017 Patient Education: Patient Medication Summary Completed 08/07/2017 Visit Diagnosis Plan: Type 2 diabetes mellitus without complications Discussion: Accuchecks daily Lab discussed Continue current meds ICD-9 : 250.00 ICD-10 : E11.9 08/04/2017 Visit Diagnosis Plan: Essential (primary) hypertension Discussion: Increase Cardizem CD to 360mg daily ICD-9 : 401.9 ICD-10 : I10 08/04/2017 Appointment: Neela Hyman WPtel: [phone] [place] [id number] FOLLOW UP 08/04/2017 Patient Education: Patient Medication Summary Completed 08/04/2017 Patient Education: Patient Medication Summary Completed 07/31/2017 Care Plan: [place] : [address]-8 Pending 07/31/2017 Care Plan: ASSAY THYROID STIM HORMONE Pen ding 07/31/2017 Care Plan: LIPID PANEL LOINC : 80408-4 Pending 07/31/2017 Care Plan: CBC Pending 07/31/2017 Care Plan: A1C HPLC LOINC : 36363-3 Pending 07/31/2017 Patient Education: Patient Medication Summary Completed 06/19/2017 Patient Education: Patient Medication Summary Completed 06/09/2017 Care Plan: CT SOFT TISSUE [place] : [address]70-7 Pending 06/09/2017 Visit Diagnosis Plan: Acute sialoadenitis [...] ICD-10 : B02.9 06/04/2017 [facility] [facility] 06/04/2017 Patient Education: Patient Medication [...] ICD-10 : B02.9 06/02/2017 Appointment: Gely Harp [address] [place], [place] [phone] ACUTE ILLNESS 06/02/2017 Patient Education: Patient Medication [...] : E11.9 05/05/2017 Appointment: Neela Hyman WPtel: [facility] FO[facility] 05/05/2017 Patient Education: Patient Medication Summary Completed 05/05/2017 Patient Education: Patient Medication Summary Completed 05/01/2017 Care Plan: A1C HPLC [facility] : 44055-4 Pending 05/01/2017 Visit Diagnosis Plan: Chronic obstructiv [...] ICD-10 : H61.23 04/10/2017 Appointment: Gely Harp [address] [place] [address] ACUTE ILLNESS 04/10/2017 Patient Education: Patient Medication Summary Completed 04/10/2017 Appointment: Neela Hyman WPtel: [address] [place] [address] INJECTION 03/28/2017 Patient Education: Patient Medication Summary [...] : J44.9 02/03/2017 Appointment: Neela Hyman WPtel: [address] [place] [address] FOLLOW UP 02/03/2017 Patient Education: Patient Medication Summary Completed 02/03/2017 Patient Education: Patient Medication Summary Completed 01/30/2017 Care Plan: [place] : [address]-3 Pending 01/30/2017 Care Plan: LIPID PANEL LOINC : 27156-0 Pending 01/30/2017 Care Plan: CBC Pending 01/30/2017 Care Plan: A1C HPLC LOINC : 67493-3 Pending 01/30/2017 Care Plan: ASSAY OF PSA [...] : E11.65 10/30/2016 Appointment: Neela Hyman WPtel: [address] [place], [place] [address] [place] 10/29 lm ~sl 10/30 confirmed~sl FOLLOW UP 11/2016 Patient Education: Patient Medication Summary Completed 10/30/2016 Patient Education: Patient Medication Summary Completed 10/24/2016 Visit Diagnosis Plan: Acute bronchitis, unspecified Di scussion: Patient sounds and looks much improved Continue current regimen Keep appt with Dr Leiv for Friday Follow up PRN ICD-9 : 466.0 ICD-10 : J20.9 08/30/2016 Appointment: Sammi Najera [phone] [facility] [place] 4/6 rang and rang rang /7 rang and rang called cell and no [...] : J20.9 08/27/2016 Appointment: Sammi Najera [phone] [facility] FO[facility] 08/27/2016 Patient Education: Patient Medication Summary Completed 08/27/2016 Care Plan: Referral Order SNOMED-CT : 30 [id number] Pending 08/27/2016 Visit Diagnosis Plan: Type 2 [...] : I10 07/02/2016 Appointment: Neela Hyman WPtel: [phone] [facility] 07/01 rang and rang` FOLLOW UP 7 Patient Education: Patient Medication Summary Completed 07/02/2016 Patient Education: Patient Medication Summary Completed 06/27/2016 Care Plan: LIPID PANEL LOINC : 32748-8 Pending 06/27/2016 Care Plan: COMPREH[place] : 93592-3 Pending 06/27/2016 Care Plan: A1C HPLC LOINC : 85422-2 Pending 06/27/2016 Visit Diagnosis Plan: Acute bronchitis, [...] : J20.9 06/14/2016 Appointment: Sammi Najera [phone] [facility] [facility] 06/14/2016 Patient Education: Patient [...] : J20.9 06/13/2016 Appointment: Sammi Najera [phone] [facility] [facility] 06/13/2016 Patient Education: Patient Medication Summary Completed 06/13/2016 Care Plan: CHEST X-RAY 2VW FRONTAL&LATL LOINC : 99848-6 Pending 06/13/2016 Visit Plan: Increase metoprolol to 100mg po BID BP readings and BP check in 1month 05/14/2016 Appointment: Neela Hyman WPtel: [address] [place], [place] [phone] 05/13 rang and rang`sl FOLLOW UP 6 Patient Education: Patient Medication Summary Completed 05/14/2016 Visit Plan: Increase metoprolol to 50mg BID BP check in 1 week f/u BP appt 2 weeks consider musculoskeletal if pain returns 04/29/2016 Appointment: Neela Hyman WPtel: [address] [place], [place] [phone] 04/25 confimred~sl FOLLOW UP 04/29/2016 Patient Education: Patient Medication Summary Completed 04/29/2016 Visit Plan: Stat CT scan of abdomen/pelv is to look for stone Hydrate and use tramadol prn Increase metoprolol to 25mg po BID Will see urology pending CT scan results 04/22/2016 Appointment: Neela Hyman WPtel: [address] [place], [place] [phone] 04/17 confirmed-sp ACUTE ILLNESS 04/22/2016 Patient Education: [...] flu shot 04/01/2016 Appointment: Neela Hyman WPtel: [address] [place], [place] [phone] [place] FOLLOW UP 04/01/2016 Patient Education: Patient Medication Summary Completed 04/01/2016 Patient Education: [facility] - Saving AutoInj - 18-64 - Dynamic Heber medina ID Completed 04/01/2016 Patient Education: Patient Medication Summary Completed 03/28/2016 Care Plan: A1C HPLC LOINC : 56835-0 Pending 03/28/2016 Care Plan: COMPREH[place] : 07541-5 Pending 03/28/2016 Visit Plan: Lab discussed Continue curre nt meds Accuchecks daily 11/30/2015 Appointment: Neela Hyman WPtel: [address] [place] [address] 11/28 confirmed~sl FOLLOW UP 11/30/2015 Patient Education: Patient Medication Summary Completed 11/30/2015 Appointment: Neela Hyman WPtel: [address] [place] [address] [place] RESCHEDULED 11/28/2015 Patient Education: Patient Medication Summary Completed 11/23/2015 Care Plan: [place] : [address]-7 Pending 11/23/2015 Care Plan: LIPID PANEL LOINC : 54226-3 Pending 11/23/2015 Care Plan: CBC Pending 11/23/2015 Care Plan: A1C HPLC LOINC : 38227-3 Pending 11/23/2015 Visit Plan: Lab discussed Accuchecks richard ly Continue current meds Cymbalta helping with feet and mood 08/29/2015 Appointment: Neela Hyman WPtel: [address] [place] [address] [place] FOLLOW UP 08/29/2015 Patient Education: Patient Medication Summary Completed 08/29/2015 Visit Plan: Check CXR Stop all steroids and steroid inhalers Use SVN with but change to duoneb Add singulair for allergy etiology Change fluoxetine to cymbalta 60mg daily Viagra samples given to try prn--warned of no nitrates 08/14/2015 Appointment: Neela Hyman WPtel: [address] [place] [address] lm to reschedule ~sl 07/27 lm ~sl 08/09 busy 08/10 conf irmed-sp Annual Well Visit 08/14/2015 Patient Education: Patient Medication Summary Completed 08/14/2015 Care Plan: CHEST X-RAY 2VW FRONTAL&LATL LOINC : 24632-5 Ordered 08/14/2015 Visit Plan: Decadron 8mg given [...] improving as expected 08/09/2015 Appointment: Sammi Najera [address] [place], [place] [phone] ER Follow UP 08/09/2015 Patient Education: Patient Medication Summary Completed 08/09/2015 Patient Education: [facility] - Saving AutoInj - 18-64 [...] with it 05/22/2015 Appointment: Neela Hyman WPtel: [address] [place], [place] [address] 05/17 confirmed~sl FOLLOW UP 05/22/2015 Patient Education: Patient Medication Summary Completed 05/22/2015 Patient Education: Patient Medication Summary Completed 05/15/2015 Visit Plan: Obtain EMGs done at [place] from when fractured left arm Lab discussed Accuchecks daily 02/13/2015 Appointment: Neela Hyman WPtel: [phone] [facility] 02/10 confrimed FOLLOW UP 02/13/2015 Patient Education: Patient Medication Summary Completed 02/13/2015 Patient Education: Patient Medication Summary Completed 02/09/2015 Visit Plan: discussed lab add fenofibrat e 134mg po daily recheck fasting lab in 3 months, CBC, CMP, Lipids, hgb AIC 11/07/2014 Appointment: Neela Hyman WPtel: [address] [place], [place] [phone] 11/04 appt confirmed cn FOLLOW UP 015 Patient Education: Patient Medication Summary Completed 11/07/2014 Patient Education: Patient Medication Summary Completed 11/03/2014 Visit Plan: Continue loratadine 10mg richard ly Notify if symptoms return 10/04/2014 Appointment: Neela Hyman WPtel: [address] [place] [address] confirmed on 10/03 at 2:42pm FOLLOW UP 09/23 Patient Education: Patient Medication Summary Completed 10/04/2014 Appointment: Neela Hyman WPtel: [address] [place] [address] ACUTE ILLNESS 09/28/2014 Appointment: Loren Garza WPtel: [address] [place] [address] FOLLOW UP 09/22/2014 Patient Education: Patient Medication Summary Completed 09/22/2014 Appointment: Loren Garza WPtel: [address] [place] [address] ACUTE ILLNESS 09/21/2014 Patient Education: Patient Medication Summary Completed 09/21/2014 Patient Education: [facility] - Saving AutoInj - 18+ - Dynamic Portal ID Completed 09/21/2014 Visit Plan: Lab discussed Continue daily accuchecks Continue current meds 06/28/2014 Appointment: Neela Hyman WPtel: [address] [place] [address] FOLLOW UP 06/28/2014 Patient Education: Patient Medication Summary Completed 06/28/2014 Patient Education: Patient Medication Summary Completed 06/23/2014 Appointment: Sarah Sunshine WPtel: [address] [place], [place] [phone] ACUTE ILLNESS 06/10/2014 Patient Education: Patient Medication Summary Completed 06/10/2014 Patient Education: [facility] - Saving AutoInj - 18+ - Dynamic Portal ID Completed 06/10/2014 Visit Plan: Lab discussed Continue daily accuchecks Continue current meds 03/29/2014 Appointment: Neela Hyman WPtel: [address] [place] [address] FOLLOW UP 03/29/2014 Patient Education: Patient Medication Summary Completed 03/29/2014 Patient Education: Patient Medication Summary Completed 03/23/2014 Visit Plan: Lab discussed Continue curre nt meds and accuchecks See surgery for removal of hand lesion 11/30/2013 Appointment: Neela Hyman WPtel: [address] [place], [place] [phone] 11/29 no answer FOLLOW UP 11/30/2013 Patient Education: Patient Medication Summary Completed 11/30/2013 Visit Plan: Lab discussed Continue curre nt meds 08/03/2013 Appointment: Neela Hyman WPtel: [address] [place] [address] FOLLOW UP 08/03/2013 Patient Education: Patient Medication Summary Completed 08/03/2013 Visit Plan: Lab Discussed Will continue current meds and pt will get back on diet/exercise Check lab in 4mos and fwup 04/06/2013 Appointment: Neela Hyman WPtel: [address] [place] [address] FOLLOW UP 04/06/2013 Patient Education: Patient Medication Summary Completed 04/06/2013 Visit Plan: Lab discussed Continue daily accuchecks 12/01/2012 Appointment: Neela Hyman WPtel: [address] [place] [address] 11/30 no answer FOLLOW UP 12/01/2012 Patient Education: Patient Medication Summary Completed 12/01/2012 Visit Plan: Continue current meds and da russell accuchecks Lab discussed 08/04/2012 Appointment: Neela Hyman WPtel: [address] [place], [place] [phone] FOLLOW UP 08/04/2012 Patient Education: Patient Medication Summary Completed 08/04/2012 Appointment: Neela Hyman WPtel: [address] [place], [place] [phone] [facility] 06/01/2012 Patient Education: Patient Medication Summary Completed 06/01/2012 Appointment: Janet Jean Baptiste WPtel: [address] [place], [place] [phone] FOLLOW UP 05/29/2012 Patient Education: Patient Medication Summary Completed 05/29/2012 Visit Plan: pt states Dr. Hyman told h is to increase his Prozac dose while she was talking to her at [facility]. Discussed that pt. should not increase or decrease dosage without Dr's knowledge. Pt. will seek hearing test here in town at the hearing aid place on [address]. Discussed that ear pain is likely caused by sinus pressure. Pt. will notify if no improvement. 05/25/2012 Appointment: Janet Jean Baptiste WPtel: [address] [place], [place] [phone] ACUTE ILLNESS 05/25/2012 Patient Education: Patient Medication Summary Completed 05/25/2012 Visit Plan: Continue current meds Contin ue daily accuchecks but alternate times Increase fish oil to 3gm daily 04/07/2012 Appointment: Neela Hyman WPtel: [address] [place], [place] [phone] 04/06 FOLLOW UP 04/07/2012 Patient Education: Patient Medication Summary Completed 04/07/2012 Appointment: Janet Jean Baptiste WPtel: [address] [place], [place] [phone] ACUTE ILLNESS 12/16/2011 Patient Education: Patient Medication Summary Completed 12/16/2011 Visit Plan: Increase 12/03/2011 Appointment: Neela Hyman WPtel: [address] [place], [place] [phone] [place] FOLLOW UP 12/03/2011 Patient Education: Patient Medication Summary Completed 12/03/2011 Visit Plan: Continue current meds Contin ue accuchecks 08/29/2011 Appointment: Neela Hyman WPtel: [address] [place], [place] [phone] [place] FOLLOW UP 08/29/2011 Patient Education: Patient Medication Summary Completed 08/29/2011 Visit Plan: Continue current meds except restart zocor 05/30/2011 Appointment: Neela Hyman WPtel: [address] [place], [place] [phone] [place] FOLLOW UP 05/30/2011 Patient Education: Patient Medication Summary Completed 05/30/2011 Visit Plan: Continue tennis elbow strap May go back to weight-lifing--light weigts every other day 01/29/2011 Appointment: Neela Hyman WPtel: [address] [place], [place] [phone] [place] FOLLOW UP 01/29/2011 Patient Education: Patient Medication Summary Completed 01/29/2011 Visit Plan: Continue tennis elbow strap and anti-inflammatories 01/14/2011 Appointment: Neela Hyman WPtel: [address] [place] [address] [place] FOLLOW UP 01/14/2011 Appointment: Janet Jean Baptiste WPtel: [address] [place], [place] [phone] NEW PATIENT 01/14/2011 Patient Education: Patient Medication Summary Completed 01/14/2011 Appointment: Neela Hyman WPtel: [address] [place], [place] [phone] [place] FOLLOW UP 01/08/2011 Appointment: Neela Hyman WPtel: [address] [place], [place] [phone] [place] FOLLOW UP 01/01/2011 Appointment: Neela Hyman WPtel: [address] [place], [place] [phone] [facility] 01/01/2011 Patient Education: Patient Medication Summary Completed [...] given. 11/29/2010 Appointment: Janet Jean Baptiste WPtel: [address] [place] [address] ACUTE ILLNESS 11/29/2010 Patient Education: Patient Medication Summary Completed 11/29/2010 Visit Plan: Cont current meds Check CMP, Lipids, HbA1C 08/28/2010 Appointment: Neela Hyman WPtel: [address] [place] [address] FOLLOW UP 08/28/2010 Patient Education: Patient Medication Summary Completed 08/28/2010 Visit Plan: Cont current meds and accuch ecks Add Zocor 40mg q HS Check Lipids and HbA1C in 3mos 06/05/2010 Appointment: Neela Hyman WPtel: [address] [place], [place] [phone] FOLLOW UP 06/05/2010 Patient Education: Patient Medication Summary Completed 06/05/2010 Visit Plan: Check Lipids and HbA1C 02/05/2010 Appointment: Neela Hyman WPtel: [address] [place], [place] [address] FOLLOW UP 02/05/2010 Patient Education: Patient Medication Summary Completed 02/05/2010 Visit Plan: HbA1C in 3mos. Continue Accu checks BID alternating times. Check HbA1C, CMP, Lipids 10/09/2009 Appointment: Neela Hyman WPtel: [address] [place], [place] [address] FOLLOW UP 10/09/2009 Patient Education: Patient Medication Summary Completed 10/09/2009 Visit Plan: Saline nasal flushes prn. Ty lenol/Motrin prn headache. Notify if persists/symptoms worsening. 08/22/2009 Appointment: Neela Hyman WPtel: [phone] [id number] ACUTE ILLNESS 08/22/2009 Patient Education: Patient Medication Summary Completed 08/22/2009 Referral: [facility] [address] [id number] [place] Office will verfy his insurance then they will contact patient Completed Referral: TarshanelsonShahbaz culver WPtel: [address] [facility] [address] [id number] [place] Referral Completed Referral: Ion Levi [address] [facility] [id number] [place] Referral Appointment Requested Referral: Ion Levi [address] [facility] [id number] [place] Referral Appointment Requested Instructions Comment . [...] with it . Obtain EMGs done at [place] from when fractured left arm Lab discussed [...] while she was talking to her at [facility]. Discussed that pt. should not increase or decrease dosage without Dr's knowledge. Pt. will seek hearing test here in [facility] at the hearing aid place on [address]. Discussed that ear pain is likely caused [...]
--- OUTSIDE RECORDS SUMMARY | 2019-12-09 09:15 | XMS REPORT | CCD ---
Author Author Michael Hyman D.O. Organization [facility] Address [address] [place] [address] Phone Care Team Providers Care Academic Physician Name Role Phone Neela Hyman D.O., PP Unavailable CCM Unavailable Summary Purpose Interface Exchange Insurance Providers Payer name Policy type / Coverage type Covered constitution party ID Effective Begin Date Effective End Date ABS FOR [employer] Commercial Insurance [id number] Unknown Family History Family History data not found Social History Social History Element Codes Description Effective Dates Marital status Unknown 05/30/[address]: 9925932 Former smoker quit 25 years ago 01/01/2011 [...] Start Date Stop Date Status Fill Instructions Keflex 500 mg capsule RxNorm: 901599 1 Capsule(s) Oral three ti mes a day 07/06/2019 07/13/2019 Active Singulair 10 mg tablet RxNorm: 514457 TAKE ONE TABLET BY MOUTH EVERY EVENING 07/06/2019 01/02/2020 Active Reselected prescribe r from [facility] to [facility] Singulair 10 mg tablet RxNorm: 877585 TAKE ONE TABLET BY MOUTH EVERY EVENING 06/22/2019 07/05/2019 Inactive Reselected prescribe r from [facility] to [facility] Zocor 40 mg tablet RxNorm: 788605 TAKE ONE TABLET BY M OUTH EVERY NIGHT AT BEDTIME 06/21/2019 11/17/2019 Active MagOx 400 mg (241.3 mg magnesium) tablet RxNorm: 719062 1 Table t(s) Oral QD 06/21/2019 08/20/2019 Active diltiazem ER 360 mg capsule,24 hr,extended release RxNorm: 8 58800 TAKE ONE CAPSULE BY MOUTH AT BEDTIME -REPLACES 300MG 05/17/2019 11/12/2019 Active MagOx 400 mg (241.3 mg magnesium) tablet RxNorm: 809255 1 Table t(s) Oral QD 04/26/2019 06/20/2019 Inactive Lasix 40 mg tablet RxNorm: 365554 40 MG PO DAILY 04/12/2019 No Stop Da te Active Benicar 40 mg tablet RxNorm: 880304 1 Tablet(s) Oral QD 03/29/2019 Active potassium chloride ER 20 mEq tablet,extended release RxNorm: 505290 1 Tablet(s) Oral two times a day 03/29/2019 06/27/2019 Inactive metformin 500 mg tablet RxNorm: 523339 2 Tablet(s) Oral two afshan es a day 03/29/2019 No Stop Date Active potassium chloride ER 20 mEq tablet,extended release RxNorm: 837276 1 Tablet(s) Oral QD 03/29/2019 03/28/2019 Inactive Benicar 40 mg tablet RxNorm: 761510 1 Tablet(s) Oral QD 03/29/2019 Inactive MagOx 400 mg (241.3 mg magnesium) tablet RxNorm: 336429 1 Table t(s) Oral QD 03/29/2019 04/25/2019 Inactive fenofibrate micronized 134 mg capsule RxNorm: 595430 TA KE ONE CAPSULE BY MOUTH EVERY DAY 03/05/2019 08/31/2019 Active duloxetine 60 mg capsule,delayed release RxNorm: 947600 1 Capsu le(s) PO QD 01/28/2019 07/26/2019 Active Trelegy Ellipta 100 mcg-62.5 mcg-25 mcg powder for inhalatio n RxNorm: 2107321 1 Puff(s) INH QD 01/06/2019 12/31/2019 Active 90 day supply prednisone 20 mg tablet RxNorm: 774999 1 Tablet(s) PO T ID for 3 days then 1 po BID for 3 days then 1 po daily for 3 days 01/05/2019 03/28/2019 Inacti ve metformin ER 1,000 mg tablet,extended release 24hr RxNorm: 1 970437 TAKE TWO TABLETS (1000MG) BY MOUTH TWO TIMES A DAY 12/22/2018 03/28/2019 Inacti ve Diflucan 100 mg tablet RxNorm: 178676 1 Tablet(s) PO QD 12/09/2018 Inactive albuterol sulfate 2.5 mg/3 mL (0.083 %) solution for n ebulization RxNorm: 602876 3 Milliliter(s) INH ONE VIAL VIA NEBULIZER EVERY 4 HOURS 019 07/21/2019 Active [AttnRPh: Saving apply/adjudicate RxGRP: SG20 RxBIN:[id number] RxPCN: ID#:[id number]] prednisone 20 mg tablet RxNorm: 669938 1 Tablet(s) PO B ID for 4 days then 1 po daily for 4 days 11/24/2018 01/04/2019 Inactive Trelegy Ellipta 100 mcg-62.5 mcg-25 mcg powder for inhalatio n RxNorm: 8825714 1 Puff(s) INH QD 10/27/2018 01/06/2019 Inactive 90 day supply metoprolol succinate ER 100 mg tablet,extended release 24 hr RxNorm: 922761 TAKE ONE TABLET BY MOUTH TWICE A DAY 10/13/2018 07/09/2019 Active diltiazem ER 360 mg capsule,24 hr,extended release RxNorm: 8 74713 TAKE ONE CAPSULE BY MOUTH AT BEDTIME -REPLACES 300MG 10/13/2018 04/10/2019 Inactive Trelegy Ellipta 100 mcg-62.5 mcg-25 mcg powder for inhalatio n RxNorm: 6122214 INHALE ONE PUFF ONCE DAILY 09/07/2018 10/27/2018 Inactive Levaquin 750 mg tablet RxNorm: 782961 1 Tablet(s) PO QD 09/07/2018 Inactive Levaquin 750 mg tablet RxNorm: 064149 1 Tablet(s) PO QD 09/07/2018 Inactive prednisone 20 mg tablet RxNorm: 354168 2 Tablet(s) PO QAM 08/13/2018 08/19/2018 Inactive Levaquin 500 mg tablet RxNorm: 344065 1 Tablet(s) PO QD 08/11/2018 Inactive fenofibrate micronized 134 mg capsule RxNorm: 706431 TA KE ONE CAPSULE BY MOUTH EVERY DAY 08/10/2018 02/05/2019 Inactive prednisone 20 mg tablet RxNorm: 659760 1 Tablet(s) PO BID 07/16/2018 07/20/2018 Inactive doxycycline hyclate 100 mg capsule RxNorm: 4329026 1 Capsule(s) PO BID 07/13/2018 07/22/2018 Inactive duloxetine 60 mg capsule,delayed release RxNorm: 033504 TAKE ONE CAPSULE BY MOUTH ONCE A DAY 07/08/2018 01/28/2019 Inactive Lasix 40 mg tablet RxNorm: 537888 1 TABLET(S) PO QAM 06/08/201809/05 Inactive potassium chloride ER 20 mEq tablet,extended release(p art/cryst) RxNorm: 5135563 1 TABLET(S) PO QD 06/08/2018 09/05/2018 Inactive metformin ER 1,000 mg tablet,extended release 24hr RxNorm: 1 255862 TAKE TWO TABLETS (1000MG) BY MOUTH TWO TIMES A DAY 06/01/2018 11/27/2018 Inacti ve Benicar HCT 40 mg-25 mg tablet RxNorm: 119742 TAKE ONE TABLET BY MOUTH ONCE DAILY 05/11/2018 03/28/2019 Inactive Zocor 40 mg tablet RxNorm: 702085 TAKE ONE TABLET BY M OUTH EVERY NIGHT AT BEDTIME 05/11/2018 06/20/2019 Inactive Trelegy Ellipta 100 mcg-62.5 mcg-25 mcg powder for inhalatio n RxNorm: 2973793 1 PUFF(S) INH QD 04/06/2018 07/04/2018 Inactive diltiazem ER 360 mg capsule,24 hr,extended release RxNorm: 8 45010 1 Capsule(s) PO QHS replaces 300mg dose 03/30/2018 09/25/2018 Inactive Trelegy Ellipta 100 mcg-62.5 mcg-25 mcg powder for inhalatio n RxNorm: 9728339 1 Puff(s) INH QD 02/24/2018 02/23/2018 Inactive Trelegy Ellipta 100 mcg-62.5 mcg-25 mcg powder for inhalatio n RxNorm: 2177747 1 Puff(s) INH QD 02/24/2018 02/23/2018 Inactive Trelegy Ellipta 100 mcg-62.5 mcg-25 mcg powder for inhalatio n RxNorm: 8283733 1 Puff(s) INH QD 02/24/2018 04/05/2018 Inactive Lasix 40 mg tablet RxNorm: 108917 1 Tablet(s) PO QAM 02/10/201803/11 Inactive potassium chloride ER 20 mEq tablet,extended release(p art/cryst) RxNorm: 8593673 1 Tablet(s) PO QD 02/10/2018 03/11/2018 Inactive fenofibrate micronized 134 mg capsule RxNorm: 795090 1 Capsule( s) PO QD 01/30/2018 07/28/2018 Inactive metoprolol succinate ER 100 mg tablet,extended release 24 hr RxNorm: 688020 TAKE ONE TABLET BY MOUTH TWICE A DAY 12/30/2017 09/25/2018 Inactive metformin ER 1,000 mg tablet,extended release 24hr RxNorm: 1 464369 1 Tablet(s) PO BID 11/17/2017 05/15/2018 Inactive [SAVINGS FOR NON -COVERED DRUGS -- BIN:932126, PCN: ASPROD1, Group: XXXXX, ID# [id number], Questions: . THIS IS NOT INSURANCE.] Benicar HCT 40 mg-25 mg tablet RxNorm: 889055 1 Tablet(s) PO QD 05/10/2018 Inactive [SAVINGS FOR NON-COVERED JESU GS -- BIN:208244, PCN: ASPROD1, Group: XXXXX, ID# [id number], Questions: . THIS IS NOT INSURANCE.] Bactroban 2 % topical cream RxNorm: 922475 Application TOP BID 10/2409/02/2018 Inactive clindamycin HCl 300 mg capsule RxNorm: 129657 2 Capsule(s) PO TID 0 11/05/2017 11/18/2017 Inactive duloxetine 60 mg capsule,delayed release RxNorm: 542902 Capsule(s) TAKE ONE CAPSULE BY MOUTH ONCE DAILY 09/24/2017 09/23/2017 Inactive triamcinolone acetonide 0.1 % topical ointment RxNorm: 2498260 1 TOP BID 09/09/2017 11/04/2017 Inactive Bactrim DS 800 mg-160 mg tablet RxNorm: 880387 1 Tablet(s) PO BID 0 08/07/2017 08/13/2017 Inactive metronidazole 500 mg tablet RxNorm: 341702 1 Tablet(s) PO BID 08/0708/13/2017 Inactive diltiazem ER 360 mg capsule,24 hr,extended release RxNorm: 8 41263 1 Capsule(s) PO QHS replaces 300mg dose 08/04/2017 01/30/2018 Inactive fenofibrate micronized 134 mg capsule RxNorm: 967513 1 Capsule( s) PO QD 07/21/2017 01/30/2018 Inactive Zocor 40 mg tablet RxNorm: 959953 1 Tablet(s) PO QHS 07/21/201705/10 Inactive GB duloxetine 60 mg capsule,delayed release RxNorm: 938818 Capsule(s) TAKE ONE CAPSULE BY MOUTH ONCE DAILY 06/24/2017 09/24/2017 Inactive Cleocin HCl 300 mg capsule RxNorm: 213196 2 Capsule(s) PO BID 06/0206/08/2017 Inactive acyclovir 800 mg tablet RxNorm: 067611 1 Tablet(s) PO 5x day 201706/08/2017 Inactive diltiazem ER 300 mg capsule,24 hr,extended release RxNorm: 8 35401 1 Capsule(s) PO QHS replaces 240mg dose 05/05/2017 08/03/2017 Inactive ipratropium-albuterol 0.5 mg-3 mg(2.5 mg base)/3 mL ne bulization soln RxNorm: 6272115 1 Unit Dose INH Q4H as needed 05/05/2017 01/04/2019 Inactive metformin ER 1,000 mg tablet,extended release 24hr RxNorm: 1 359451 1 Tablet(s) PO BID 04/28/2017 11/17/2017 Inactive [SAVINGS FOR NON -COVERED DRUGS -- BIN:793617, PCN: ASPROD1, Group: XXXXX, ID# [id number], Questions: . THIS IS NOT INSURANCE.] diltiazem ER (XR/XT) 240 mg capsule,extended release 2 4 hr, controlled RxNorm: 267581 TAKE ONE CAPSULE BY MOUTH EVERY DAY 04/15/2017 05/04/2017 Inact avani prednisone 20 mg tablet RxNorm: 103181 1 Tablet(s) PO QD 04/10/2017 1 06/14/2016 Inactive Breo Ellipta 200 mcg-25 mcg/dose powder for inhalation RxNor m: 0088436 1 Puff(s) INH QD 04/10/2017 02/09/2018 Inactive Breo Ellipta 200 mcg-25 mcg/dose powder for inhalation RxNor m: 3067610 1 Puff(s) INH QD 04/10/2017 04/09/2017 Inactive Levaquin 500 mg tablet RxNorm: 322298 1 Tablet(s) PO QD 04/10/2017 Inactive metoprolol succinate ER 100 mg tablet,extended release 24 hr RxNorm: 294847 TAKE ONE TABLET BY MOUTH TWICE A DAY 03/24/2017 12/18/2017 Inactive fenofibrate micronized 134 mg capsule RxNorm: 786762 1 Capsule( s) PO QD 01/16/2017 07/21/2017 Inactive Benicar HCT 40 mg-25 mg tablet RxNorm: 541370 1 Tablet(s) PO QD 11/17/2017 Inactive [SAVINGS FOR NON-COVERED JESU GS -- BIN:647016, PCN: ASPROD1, Group: XXXXX, ID# [id number], Questions: . THIS IS NOT INSURANCE.] metoprolol succinate ER 100 mg tablet,extended release 24 hr RxNorm: 548905 1 Tablet(s) PO BID 10/16/2016 03/23/2017 Inactive diltiazem ER (XR/XT) 240 mg capsule,extended release 2 4 hr, controlled RxNorm: 154796 1 Capsule(s) PO QD 10/16/2016 04/13/2017 Inactive [SAVINGS FOR NON- COVERED DRUGS -- BIN:932155, PCN: ASPROD1, Group: XXXXX, ID# [id number], Questions: . THIS IS NOT INSURANCE.] metformin ER 1,000 mg tablet,extended release 24hr RxNorm: 8 40878 1 Tablet(s) PO BID 10/16/2016 04/28/2017 Inactive [SAVINGS FOR NON -COVERED DRUGS -- BIN:696973, PCN: ASPROD1, Group: XXXXX, ID# [id number], Questions: . THIS IS NOT INSURANCE.] Zocor 40 mg tablet RxNorm: 439818 1 Tablet(s) PO QHS 10/16/201607/21 Inactive GB Singulair 10 mg tablet RxNorm: 305389 Tablet(s) 1 TABLET(S) PO QHS 08/27/2016 09/02/2018 Inactive prednisone 20 mg tablet RxNorm: 744246 1 Tablet(s) PO QD 08/27/2016 0 08/31/2016 Inactive ipratropium-albuterol 0.5 mg-3 mg(2.5 mg base)/3 mL ne bulization soln RxNorm: 2433816 1 Unit Dose INH Q4H as needed 08/27/2016 05/04/2017 Inactive metoprolol succinate ER 100 mg tablet,extended release 24 hr RxNorm: 618680 TAKE ONE TABLET BY MOUTH TWICE A DAY 08/05/2016 10/16/2016 Inactive duloxetine 60 mg capsule,delayed release RxNorm: 387567 TAKE ONE CAPSULE BY MOUTH ONCE DAILY 08/05/2016 06/24/2017 Inactive prednisone 20 mg tablet RxNorm: 610035 1 Tablet(s) PO QD 06/14/2016 0 06/18/2016 Inactive ipratropium-albuterol 0.5 mg-3 mg(2.5 mg base)/3 mL ne bulization soln RxNorm: 0413993 1 Unit Dose INH Q4H as needed 06/13/2016 08/26/2016 Inactive Levaquin 500 mg tablet RxNorm: 319181 1 Tablet(s) PO QD 06/13/2016 Inactive metoprolol succinate ER 100 mg tablet,extended release 24 hr RxNorm: 658990 1 Tablet(s) PO BID replaces 50mg dose 05/14/2016 07/12/2016 Inactive metoprolol succinate ER 50 mg tablet,extended release 24 hr RxNorm: 664009 1 Tablet(s) PO BID 04/29/2016 05/13/2016 Inactive prednisone 20 mg tablet RxNorm: 041631 1 Tablet(s) PO BID 04/22/2016 04/21/2016 Inactive prednisone 20 mg tablet RxNorm: 135909 1 Tablet(s) PO BID 04/22/2016 04/28/2016 Inactive Singulair 10 mg tablet RxNorm: 735755 Tablet(s) 1 TABLET(S) PO QHS 04/01/2016 08/26/2016 Inactive metoprolol succinate ER 25 mg tablet,extended release 24 hr RxNorm: 147362 1 Tablet(s) PO QHS for blood pressure 04/01/2016 05/13/2016 Inactive fenofibrate micronized 134 mg capsule RxNorm: 285307 TA KE ONE CAPSULE BY MOUTH DAILY 01/25/2016 01/16/2017 Inactive duloxetine 60 mg capsule,delayed release RxNorm: 464562 TAKE ONE CAPSULE BY MOUTH ONCE DAILY 01/25/2016 08/04/2016 Inactive Zocor 40 mg tablet RxNorm: 281481 TAKE ONE TABLET BY MOUTH AT B EDTIME 11/13/2015 10/16/2016 Inactive GB metformin ER 1,000 mg tablet,extended release 24hr RxNorm: 8 66158 1 Tablet(s) PO BID 10/26/2015 10/16/2016 Inactive [SAVINGS FOR NON -COVERED DRUGS -- BIN:188582, PCN: ASPROD1, Group: XXXXX, ID# [id number], Questions: . THIS IS NOT INSURANCE.] Benicar HCT 40 mg-25 mg tablet RxNorm: 238241 1 Tablet(s) PO QD 06/201511/11/2016 Inactive [SAVINGS FOR NON-COVERED JESU GS -- BIN:449709, PCN: ASPROD1, Group: XXXXX, ID# [id number], Questions: . THIS IS NOT INSURANCE.] diltiazem ER (XR/XT) 240 mg capsule,extended release,control led RxNorm: 089372 1 Capsule(s) PO QD 10/26/2015 10/15/2016 Inactive [SAVINGS FOR NO N-COVERED DRUGS -- BIN:810466, PCN: ASPROD1, Group: XXXXX, ID# [id number], Questions: . THIS IS NOT INSURANCE.] Singulair 10 mg tablet RxNorm: 703251 1 TABLET(S) PO QHS 09/18/2015 1 05/31/2015 Inactive Viagra 100 mg tablet RxNorm: 703435 1 Tablet(s) PO as needed 201511/23/2018 Inactive Singulair 10 mg tablet RxNorm: 685774 1 Tablet(s) PO QHS 08/16/2015 0 08/15/2015 Inactive Singulair 10 mg tablet RxNorm: 717830 1 Tablet(s) PO QHS 08/16/2015 0 09/14/2015 Inactive duloxetine 60 mg capsule,delayed release RxNorm: 415295 1 Capsule(s) PO QD replaces fluoxetine 08/14/2015 01/24/2016 Inactive ipratropium-albuterol 0.5 mg-3 mg(2.5 mg base)/3 mL ne bulization soln RxNorm: 4111404 1 Unit Dose INH Q4H as needed 08/14/2015 06/12/2016 Inactive prednisone 20 mg tablet RxNorm: 586379 Take 3 tabs PO o nce daily x 3 days, then 2 tabs PO once daily x 3 days and then 1 tab PO once daily x 3 days 08/09/2015 08/13/2015 Inactive Symbicort 160 mcg-4.5 mcg/actuation HFA aerosol inhaler RxNo rm: 8845022 2 Puff(s) INH BID 08/09/2015 08/13/2015 Inactive Zocor 40 mg tablet RxNorm: 897743 1 Tablet(s) PO QHS 05/23/201511/11 Inactive [AttnRPh: Saving apply/adjudicate RxGRP: SG20 RxBIN:[id number] RxPCN:HT ID#:[id number]] Benicar HCT 40 mg-25 mg tablet RxNorm: 531182 1 Tablet(s) PO QD 10/26/2015 Inactive [SAVINGS FOR NON-COVERED JESU GS -- BIN:274776, PCN: ASPROD1, Group: XXXXX, ID# [id number], Questions: . THIS IS NOT INSURANCE.] diltiazem ER (XR/XT) 240 mg capsule,extended release,control led RxNorm: 244080 1 Capsule(s) PO QD 04/24/2015 10/20/2015 Inactive [SAVINGS FOR NO N-COVERED DRUGS -- BIN:067462, PCN: ASPROD1, Group: XXXXX, ID# [id number], Questions: . THIS IS NOT INSURANCE.] fluoxetine 40 mg capsule RxNorm: 299572 1 Capsule(s) PO QD 04/24/20 15 08/13/2015 Inactive [SAVINGS FOR NON-COVERED JESU GS -- BIN:954201, PCN: ASPROD1, Group: XXXXX, ID# [id number], Questions: . THIS IS NOT INSURANCE.] Zocor 40 mg tablet RxNorm: 076724 TABLET(S) 1 TABLET(S) PO QHS 01/2505/23/2015 Inactive [AttnRPh: Saving apply/adjud icate RxGRP:SG20 RxBIN:[id number] RxPCN: ID#:[id number]] metformin ER 1,000 mg tablet,extended release 24hr RxNorm: 8 61904 1 TABLET(S) PO BID 01/29/2015 10/26/2015 Inactive [SAVINGS FOR NON -COVERED DRUGS -- BIN:386595, PCN: ASPROD1, Group: XXXXX, ID# [id number], Questions: . THIS IS NOT INSURANCE.] fenofibrate micronized 134 mg capsule RxNorm: 469693 1 CAPSULE( S) PO QD 01/23/2015 01/17/2016 Inactive fenofibrate micronized 134 mg capsule RxNorm: 737679 1 Capsule( s) PO QD 11/07/2014 01/22/2015 Inactive diltiazem ER (XR/XT) 240 mg capsule,extended release,control led RxNorm: 761383 1 Capsule(s) PO QD 10/24/2014 04/24/2015 Inactive [SAVINGS FOR NO N-COVERED DRUGS -- BIN:849712, PCN: ASPROD1, Group: XXXXX, ID# [id number], Questions: . THIS IS NOT INSURANCE.] Benicar HCT 40 mg-25 mg tablet RxNorm: 326334 1 Tablet(s) PO QD 05/201404/24/2015 Inactive [SAVINGS FOR NON-COVERED JESU GS -- BIN:376877, PCN: ASPROD1, Group: XXXXX, ID# XXXXXXX, Questions: . THIS IS NOT INSURANCE.] fluoxetine 40 mg capsule RxNorm: 503054 1 Capsule(s) PO QD 10/25/19 15 04/24/2015 Inactive [SAVINGS FOR NON-COVERED JESU GS -- BIN:606044, PCN: ASPROD1, Group: XXXXX, ID# [id number], Questions: . THIS IS NOT INSURANCE.] azithromycin 500 mg tablet RxNorm: 859745 1 Tablet(s) PO QD 015 09/27/2014 Inactive [SAVINGS FOR NON-COVERED JESU GS -- BIN:766168, PCN: ASPROD1, Group: XXXXX, ID# [id number], Questions: . THIS IS NOT INSURANCE.] albuterol sulfate 2.5 mg/3 mL (0.083 %) solution for n ebulization RxNorm: 740974 3 Milliliter(s) INH ONE VIAL VIA NEBULIZER EVERY 4 HOURS 015 11/19/2014 Inactive [AttnRPh: Saving apply/adjudicate RxGRP: SG20 RxBIN:[id number] RxPCN: ID#:[id number]] Zocor 40 mg tablet RxNorm: 334253 TABLET(S) 1 TABLET(S ) PO QHS 1 TABLET(S) PO QHS 09/04/2014 02/21/2015 Inactive [AttnRPh: Saving apply/adjudicate RxGRP:SG20 RxBIN:[id number] RxPCN: ID#:[id number]] metformin ER 1,000 mg tablet,extended release 24hr RxNorm: 8 92577 1 Tablet(s) PO BID 08/04/2014 01/28/2015 Inactive [SAVINGS FOR NON -COVERED DRUGS -- BIN:993935, PCN: ASPROD1, Group: XXXXX, ID# [id number], Questions: . THIS IS NOT INSURANCE.] Bromfed DM 2 mg-30 mg-10 mg/5 mL syrup RxNorm: 5486270 1 -2 Teaspoon(s) PO Q4H as needed for cough 06/10/2014 06/19/2014 Inactive [SAVINGS FOR UN INSURED PATIENTS -- BIN:162991, PCN: ASPROD1, Group: AME08, ID# [id number], Process claim through [employer], for questions: . THIS IS NOT INSURANCE.] Augmentin 875 mg-125 mg tablet RxNorm: 415122 1 Tablet(s) PO Q12H 0 06/10/2014 06/19/2014 Inactive [AttnRPh: Saving apply/adjud icate RxGRP:SG20 RxBIN:[id number] RxPCN:HT ID#:[id number]] Zocor 40 mg tablet RxNorm: 224699 Tablet(s) 1 TABLET(S ) PO QHS 1 TABLET(S) PO QHS 05/25/2014 08/22/2014 Inactive [AttnRPh: Saving apply/adjudicate RxGRP:SG20 RxBIN:[id number] RxPCN:HT ID#:[id number]] fluoxetine 40 mg capsule RxNorm: 374248 1 Capsule(s) PO QD 04/29/20 14 10/24/2014 Inactive [AttnRPh: Saving apply/adjud icate RxGRP:SG20 RxBIN:[id number] RxPCN:HT ID#:[id number]] diltiazem ER (XR/XT) 240 mg capsule,extended release,control led RxNorm: 296187 1 Capsule(s) PO QD 04/29/2014 10/24/2014 Inactive [AttnRPh: Shahzad g apply/adjudicate RxGRP:SG20 RxBIN:[id number] RxPCN:HT ID#:[id number]] Benicar HCT 40 mg-25 mg tablet RxNorm: 266841 1 Tablet(s) PO QD 09/201310/24/2014 Inactive [AttnRPh: Saving apply/adjud icate RxGRP:SG20 RxBIN:[id number] RxPCN:HT ID#:[id number]] Zocor 40 mg tablet RxNorm: 338425 1 TABLET(S) PO QHS 1 TABLET(S ) PO QHS 03/07/2014 05/25/2014 Inactive [AttnRPh: Saving chelsie ly/adjudicate RxGRP:SG20 RxBIN:[id number] RxPCN:HT ID#:[id number]] Zocor 40 mg tablet RxNorm: 639890 1 Tablet(s) PO QHS 1 TABLET(S ) PO QHS 12/06/2013 03/05/2014 Inactive [AttnRPh: Saving chelsie ly/adjudicate RxGRP:SG20 RxBIN:[id number] RxPCN:HT ID#:[id number]] diltiazem ER (XR/XT) 240 mg capsule,extended release,control led RxNorm: 912675 1 Capsule(s) PO QD 10/25/2013 04/22/2014 Inactive [AttnRPh: Savin g apply/adjudicate RxGRP:SG20 RxBIN:[id number] RxPCN:HT ID#:[id number]] fluoxetine 40 mg capsule RxNorm: 590853 1 Capsule(s) PO QD 10/26/19 14 04/22/2014 Inactive [AttnRPh: Saving apply/adjud icate RxGRP:SG20 RxBIN:[id number] RxPCN:HT ID#:[id number]] Zocor 40 mg tablet RxNorm: 068618 1 Tablet(s) PO QHS 1 TABLET(S ) PO QHS 09/13/2013 12/06/2013 Inactive metformin ER 1,000 mg tablet,extended release 24hr RxNorm: 8 79337 Tablet(s) PO TAKE 1 TABLET BY MOUTH TWICE DAILY (REPLACES 500MG DOSE) 07/26/201303/2015 Inactive diltiazem ER (XR/XT) 240 mg capsule,extended release,control led RxNorm: 085480 1 Capsule(s) PO QD 05/03/2013 10/25/2013 Inactive fluoxetine 40 mg capsule RxNorm: 193314 1 Capsule(s) PO QD 05/03/20 13 10/25/2013 Inactive Benicar HCT 40 mg-25 mg tablet RxNorm: 735729 1 Tablet(s) PO QD 01/201304/29/2014 Inactive Zocor 40 mg tablet RxNorm: 421142 1 Tablet(s) PO QHS 12/10/201209/13 Inactive fluoxetine 40 mg capsule RxNorm: 569848 1 Capsule(s) PO QD 11/10/19 13 05/03/2013 Inactive diltiazem ER (XR/XT) 240 mg capsule,extended release,control led RxNorm: 745153 1 Capsule(s) PO QD 11/09/2012 05/03/2013 Inactive Benicar HCT 40 mg-25 mg tablet RxNorm: 190616 1 Tablet(s) PO QD 05/03/2013 Inactive metformin ER 1,000 mg tablet,extended release 24hr RxNorm: 8 85880 Tablet(s) PO TAKE 1 TABLET BY MOUTH TWICE DAILY (REPLACES 500MG DOSE) 08/05/201206/2013 Inactive Zocor 40 mg tablet RxNorm: 585198 1 Tablet(s) PO QHS 06/15/201212/09 Inactive fluoxetine 40 mg capsule RxNorm: 460795 1 Capsule(s) PO QD 05/15/2011/08/2012 Inactive Neurontin 600 mg Tab RxNorm: 691642 1 Tablet(s) PO QHS 12/03/2011 Inactive metformin ER 1,000 mg tablet,extended release 24hr RxNorm: 8 92911 1 Tablet(s) PO BID replaces 500mg dose 12/03/2011 07/26/2013 Inactive Zocor 40 mg tablet RxNorm: 982381 1 Tablet(s) PO QHS 12/03/201106/15 Inactive fluoxetine 20 mg capsule RxNorm: 840308 1 Capsule(s) PO QD 12/03/19 12 05/24/2012 Inactive diltiazem ER (XR/XT) 240 mg capsule,extended release,control led RxNorm: 376843 1 Capsule(s) PO QD 11/15/2011 11/09/2012 Inactive Benicar HCT 40 mg-25 mg tablet RxNorm: 070383 1 Tablet(s) PO QD 02/16/2012 Inactive metformin ER 500 mg 24 hr Tab RxNorm: 590697 1 Tablet(s) PO BID 12/02/2011 Inactive Zocor 40 mg Tab RxNorm: 945468 1 Tablet(s) PO QHS 05/30/2011 11/25/19 12 Inactive fluoxetine 20 mg Cap RxNorm: 513740 1 Capsule(s) PO QD 05/28/2011 Inactive Neurontin 600 mg Tab RxNorm: 210693 1 Tablet(s) PO QHS 05/28/2011 Inactive Neurontin 600 mg Tab RxNorm: 320246 1 Tablet(s) PO QHS 02/22/201106/2011 Inactive Neurontin 600 mg Tab RxNorm: 142917 1 Tablet(s) PO QHS 01/14/2011 Inactive Neurontin 300 mg Cap RxNorm: 657784 1 Capsule(s) PO QHS 01/14/2011 Inactive Neurontin 600 mg Tab RxNorm: 142877 1 Tablet(s) PO QHS 01/14/2011 Inactive Medrol (Vipul) 4 mg Tabs in a Dose Pack RxNorm: 626418 Tablet(s) PO 0 01/02/2011 08/28/2011 Inactive as directed fluoxetine 20 mg Cap RxNorm: 989052 1 Capsule(s) PO QD 12/10/201006/2011 Inactive Zocor 40 mg Tab RxNorm: 635858 1 Tablet(s) PO QHS 12/03/2010 05/29/19 12 Inactive Neurontin 300 mg Cap RxNorm: 313097 1 Capsule(s) PO QHS 12/03/2010 Inactive Septra DS 800 mg-160 mg Tab RxNorm: 543188 1 Tablet(s) PO BID 11/2912/08/2010 Inactive diltiazem ER (XR/XT) 240 mg Continuous Release Cap RxNorm: 8 83712 1 Capsule(s) PO QD 11/20/2010 11/15/2011 Inactive Neurontin 300 mg Cap RxNorm: 214199 1 Capsule(s) PO QHS 11/06/2010 Inactive Neurontin 300 mg Cap RxNorm: 109528 1 Capsule(s) PO QHS 11/06/2010 Inactive Celebrex 200 mg Cap RxNorm: 673772 1 Capsule(s) PO BID 10/24/2010 Inactive fluoxetine 20 mg Cap RxNorm: 379932 1 Capsule(s) PO QD 06/07/201003/2011 Inactive Zocor 40 mg Tab RxNorm: 599017 1 Tablet(s) PO QHS 06/05/2010 12/02/19 11 Inactive Benicar HCT 40 mg-25 mg Tab RxNorm: 465115 1 Tablet(s) PO QD 200908/21/2011 Inactive Diltiazem 240 mg Continuous Release Cap RxNorm: 163711 1 Capsul e(s) PO QD 11/09/2009 09/02/2018 Inactive Avelox 400 mg Tab RxNorm: 994750 1 Tablet(s) PO QD 08/22/2009 010 Inactive ProAir HFA 90 mcg/actuation aerosol inhaler RxNorm: 618706 2 Puff(s) INH Q4H as needed No Start Date Active tramadol 50 mg tablet RxNorm: 086148 1-2 Tablet(s) PO TID as ne eded for pain No Start Date Active Tylenol Arthritis 650 mg Tab RxNorm: 1508165 2 Tablet(s) PO QD No Sta rt Date Active Celebrex 200 mg Cap RxNorm: 779077 1 Capsule(s) PO BID No Start Date 08/08/2015 Inactive Medrol (Vipul) 4 mg Tabs in a Dose Pack RxNorm: 648717 Tablet(s) PO N o Start Date 01/01/2011 Inactive as directed Promethazine-DM 6.25 mg-15 mg/5 mL Syrup RxNorm: 604415 1-2 Teaspoon(s) PO Q4H prn cough No Start Date 08/28/2011 Inactive Claritin 10 mg tablet RxNorm: 832820 1 Tablet(s) PO QD No Start Date 08/08/2015 Inactive [id number] Oral RxNorm: Oral No Start Da te 03/28/2019 Inactive Breo Ellipta 200 mcg-25 mcg/dose powder for inhalation RxNor m: 6786660 1 Puff(s) INH QD No Start Date 04/09/2017 Inactive metformin 500 mg Tab RxNorm: 865996 1 Tablet(s) PO QD No Start Date 0 08/17/2011 Inactive Diltiazem 240 mg Continuous Release Cap RxNorm: 918419 1 Capsul e(s) PO BID No Start Date 11/08/2009 Inactive fluoxetine 20 mg Cap RxNorm: 611991 1 Capsule(s) PO QD No Start Date 06/07/2010 Inactive Multivitamin & Mineral Formula Oral RxNorm: Oral No Start Da te 03/28/2019 Inactive Medrol (Vipul) 4 mg tablets in a dose pack RxNorm: 898293 Tablet(s) PO as directed No Start Date 05/28/2012 Inactive Fish Oil 1,000 mg Cap RxNorm: 1 Capsule(s) PO QD No Start Date 07/2018 Inactive Nexium 40 mg Cap RxNorm: 669968 1 Capsule(s) PO QD No Start Date 07/24 Inactive fluticasone 50 mcg/actuation nasal spray,suspension RxNorm: 4121222 2 [place] NASAL QD to each nostril No Start Date 08/03/2017 Inactive Viagra 100 mg tablet RxNorm: 976385 1 Tablet(s) PO as needed No Sta rt Date 09/17/2015 Inactive prednisone 20 mg tablet RxNorm: 365856 1 Tablet(s) PO B ID for 4 days then 1 po daily for 4 days No Start Date 11/23/2018 Inactive Benicar HCT 40 mg-25 mg Tab RxNorm: 646871 1 Tablet(s) PO QD No Sta rt [...] Date S ervice Location MICROALBUMIN URINE RANDOM 12161 MICRL MG/L 5.8 MG/L 03/2011 Unknown MICROALBUMIN URINE RANDOM 73532 XM.ALB/CRE 5.2 MG/GCR Unknown MICROALBUMIN URINE RANDOM 12519 CREAT MG/D 111 MG/DL 03/2011 Unknown MICROALBUMIN URINE RANDOM 42811 CRE/100 1.11 G/L 12/24 Unknown Procedures Procedure Codes Date FLU VACC PRSV FREE INC ANTIG 65 AND OLDER CPT-4: 32043 03/04/2019 ADMIN PNEUMOCOCCAL VACCINE CPT-4: G0009 03/04/2019 ADMIN INFLUENZA VIRUS VAC CPT-4: G0008 03/04/2019 FLU VACC PRSV FREE INC ANTIG 65 AND OLDER CPT-4: 68245 03/04/2019 PNEUMOCOCCAL VACC 23 RAYMON IM CPT-4: 76867 03/04/2019 THER/PROPH/DIAG INJ SC/IM CPT-4: 80829 08/11/2018 TRIAMCINOLONE ACET INJ NOS CPT-4: J3301 08/11/2018 DEXAMETHASONE SODIUM PHOS CPT-4: J1100 08/11/2018 THER/PROPH/DIAG INJ SC/IM CPT-4: 19079 07/16/2018 METHYLPREDNISOLONE INJECTION CPT-4: J2930 07/16/2018 INFLUENZA ASSAY W/OPTIC CPT-4: 23318 07/16/2018 THER/PROPH/DIAG INJ SC/IM CPT-4: 66007 07/13/2018 TRIAMCINOLONE ACET INJ NOS CPT-4: J3301 07/13/2018 THER/PROPH/DIAG INJ SC/IM CPT-4: 89517 05/04/2018 METHYLPREDNISOLONE INJECTION CPT-4: J2930 05/04/2018 FLU VACC PRSV FREE INC ANTIG 65 AND OLDER CPT-4: 83083 02/10/2018 PNEUMOCOCCAL VACC 13 [facility] IM CPT-4: 68159 02/10/2018 ADMIN INFLUENZA VIRUS VAC CPT-4: G0008 02/10/2018 ADMIN PNEUMOCOCCAL VACCINE CPT-4: G0009 02/10/2018 THER/PROPH/DIAG INJ SC/IM CPT-4: 87928 09/09/2017 TRIAMCINOLONE ACET INJ NOS CPT-4: J3301 09/09/2017 ALBUTEROL NON-COMP UNIT CPT-4: J7613 04/10/2017 AIRWAY INHALATION TREATMENT CPT-4: 47016 04/10/2017 PRESCRIP TRANSMIT VIA ERX SY CPT-4: G8553 04/10/2017 FLU VACC PRSV FREE INC ANTIG 65 AND OLDER CPT-4: 21459 03/28/2017 ADMIN INFLUENZA VIRUS VAC CPT-4: G0008 03/28/2017 PRESCRIP TRANSMIT VIA ERX SY CPT-4: G8553 08/27/2016 PRESCRIP TRANSMIT VIA ERX SY CPT-4: G8553 06/14/2016 ALBUTEROL NON-COMP UNIT CPT-4: J7613 06/13/2016 AIRWAY INHALATION TREATMENT CPT-4: 24564 06/13/2016 PRESCRIP TRANSMIT VIA ERX SY CPT-4: [...] CPT-4: G8553 11/07/2014 THER/PROPH/DIAG INJ SC/IM CPT-4: 67174 09/21/2014 METHYLPREDNISOLONE INJECTION CPT-4: J2930 09/21/2014 PRESCRIP TRANSMIT VIA ERX SY CPT-4: G8553 09/21/2014 PRESCRIP TRANSMIT VIA ERX SY CPT-4: G8553 06/10/2014 URINALYSIS NONAUTO W/O SCOPE CPT-4: 89681 06/01/2012 PRESCRIP TRANSMIT VIA ERX SY CPT-4: G8553 05/25/2012 PRESCRIP TRANSMIT VIA ERX SY CPT-4: G8553 12/03/2011 CUR TOBACCO NON-USER CPT-4: G8457 05/30/2011 PRESCRIP TRANSMIT VIA ERX SY CPT-4: G8553 05/30/2011 URINALYSIS NONAUTO W/O SCOPE CPT-4: 79791 01/01/2011 URINE CULTURE/ COLONY COUNT CPT-4: 28473 01/01/2011 CUR TOBACCO NON-USER CPT-4: G8457 01/01/2011 [...] 1: 114/68 Code: 8480-6 BMI: 43.5 Code: 69939-8 Heart Rate 1: 52 bpm Height: 6'1" [...] 1: 136/72 Code: 8480-6 BMI: 42.7 Code: 91433-2 Heart Rate 1: 60 bpm Height: 6'1" Respiratory Rate: 22 bpm SpO2: 95% Tempera ture: 37.1 (C) / 98.7 (F) Weight: 324 lbs 02/10/2018 Blood Pressure 1: 146/78 Code: 8480-6 BMI: 42.4 Code: 39265-9 Heart Rate 1: 64 bpm Height: 6'1" Respiratory Rate: 22 bpm SpO2: 95% Tempera ture: 36.5 (C) / 97.7 (F) Weight: 321 lbs 11/05/2017 Blood Pressure 1: 128/84 Code: 8480-6 BMI: 42.9 Code: 86151-7 Heart Rate 1: 52 bpm Height: 6'1" Respiratory Rate: 22 bpm SpO2: 95% Tempera ture: 36.3 (C) / 97.3 (F) Weight: 325 lbs 09/09/2017 Blood Pressure 1: 162/90 Code: 8480-6 BMI: 42.5 Code: 46373-3 Heart Rate 1: 60 bpm Height: 6'1" Respiratory Rate: 24 bpm SpO2: 95% Tempera ture: 36.4 (C) / 97.6 (F) Weight: 322 lbs 08/07/2017 Blood Pressure 1: 152/90 Code: 8480-6 BMI: 42.2 Code: 57938-2 Heart Rate 1: 60 bpm Height: 6'1" Respiratory Rate: 26 bpm SpO2: 94% Tempera ture: 36.6 (C) / 97.8 (F) Weight: 320 lbs 08/04/2017 Blood Pressure 1: 150/86 Code: 8480-6 BMI: 42.7 Code: 23753-6 Heart Rate 1: 64 bpm Height: 6'1" Respiratory Rate: 20 bpm SpO2: 94% Tempera ture: 36.3 (C) / 97.3 (F) Weight: 324 lbs 06/04/2017 Blood Pressure 1: 164/90 Code: 8480-6 Heart Rate 1: 60 bpm Respiratory Rate: 24 bpm SpO2: 94% Temperature: 36.8 (C) / 98.3 (F) 06/02/2017 Blood Pressure 1: 162/80 Code: 8480-6 BMI: 42.9 Code: 88948-7 Heart Rate 1: 66 bpm Height: 6'1" Respiratory Rate: 22 bpm SpO2: 98% Tempera ture: 36.6 (C) / 97.8 (F) Weight: 325 lbs 05/05/2017 Blood Pressure 1: 164/94 Code: 8480-6 BMI: 41.4 Code: 84583-6 Heart Rate 1: 64 bpm Height: 6'1" Respiratory Rate: 22 bpm SpO2: 95% Tempera ture: 36.4 (C) / 97.5 (F) Weight: 314 lbs 04/10/2017 Blood Pressure 1: 136/78 Code: 8480-6 BMI: 42.0 Code: 35516-7 Heart Rate 1: 76 bpm Height: 6'1" Respiratory Rate: 24 bpm SpO2: 92% Tempera ture: 35.9 (C) / 96.7 (F) Weight: 318 lbs 02/03/2017 Blood Pressure 1: 134/82 Code: 8480-6 BMI: 41.7 Code: 10544-0 Heart Rate 1: 72 bpm Height: 6'1" Respiratory Rate: 24 bpm SpO2: 95% Tempera ture: 36.1 (C) / 97.0 (F) Weight: 316 lbs 10/30/2016 Blood Pressure 1: 126/74 Code: 8480-6 BMI: 41.3 Code: 87512-7 Heart Rate 1: 68 bpm Height: 6'1" Respiratory Rate: 20 bpm Temperature: 37 .1 (C) / 98.8 (F) Weight: 313 lbs 08/30/2016 Blood Pressure 1: 146/80 Code: 8480-6 BMI: 41.7 Code: 25011-6 Heart Rate 1: 64 bpm Height: 6'1" Respiratory Rate: 24 bpm SpO2: 94% Tempera ture: 36.6 (C) / 97.8 (F) Weight: 316 lbs 08/27/2016 Blood Pressure 1: 124/78 Code: 8480-6 Heart Rate 1: 66 bpm Height: 6'2" Respiratory Rate: 18 bpm SpO2: 94% Temperature: 36.6 (C) / 97.8 (F) Weight: 07/02/2016 Blood Pressure 1: 126/78 Code: 8480-6 BMI: 41.4 Code: 97451-8 Heart Rate 1: 68 bpm Height: 6'1" Respiratory Rate: 24 bpm SpO2: 94% Tempera ture: 36.6 (C) / 97.8 (F) Weight: 314 lbs 06/14/2016 Blood Pressure 1: 146/82 Code: 8480-6 Heart Rate 1: 80 bpm Respiratory Rate: 20 bpm SpO2: 95% Temperature: 37.3 (C) / 99.2 (F) 06/13/2016 Blood Pressure 1: 146/84 Code: 8480-6 BMI: 40.5 Code: 03438-2 Heart Rate 1: 66 bpm Height: 6'1" Respiratory Rate: 28 bpm SpO2: 93% Tempera ture: 35.8 (C) / 96.4 (F) Weight: 307 lbs 05/14/2016 Blood Pressure 1: 146/90 Code: 8480-6 BMI: 41.2 Code: 68356-7 Heart Rate 1: 68 bpm Height: 6'1" Respiratory Rate: 26 bpm Temperature: 36 .8 (C) / 98.2 (F) Weight: 312 lbs 04/29/2016 Blood Pressure 1: 152/90 Code: 8480-6 BMI: 41.0 Code: 78177-8 Heart Rate 1: 68 bpm Height: 6'1" Respiratory Rate: 26 bpm SpO2: 94% Tempera ture: 36.1 (C) / 96.9 (F) Weight: 311 lbs 04/22/2016 Blood Pressure 1: 152/94 Code: 8480-6 BMI: 40.9 Code: 91127-9 Heart Rate 1: 68 bpm Height: 6'1" Respiratory Rate: 24 bpm SpO2: 94% Tempera ture: 36.2 (C) / 97.2 (F) Weight: 310 lbs 04/01/2016 Blood Pressure 1: 156/78 Code: 8480-6 BMI: 40.6 Code: 72847-7 Heart Rate 1: 84 bpm Height: 6'1" Respiratory Rate: 22 bpm SpO2: 95% Tempera ture: 37.1 (C) / 98.7 (F) Weight: 308 lbs 11/30/2015 Blood Pressure 1: 142/80 Code: 8480-6 BMI: 40.5 Code: 08621-5 Heart Rate 1: 88 bpm Height: 6'1" Respiratory Rate: 22 bpm Temperature: 36 .2 (C) / 97.2 (F) Weight: 307 lbs 08/29/2015 Blood Pressure 1: 132/70 Code: 8480-6 BMI: 40.0 Code: 70508-8 Heart Rate 1: 76 bpm Height: 6'1" Respiratory Rate: 24 bpm SpO2: 96% Tempera ture: 36.7 (C) / 98.0 (F) Weight: 303 lbs 08/14/2015 Blood Pressure 1: 126/80 Code: 8480-6 BMI: 39.4 Code: 88604-6 Heart Rate 1: 92 bpm Height: 6'1" Respiratory Rate: 24 bpm SpO2: 94% Tempera ture: 37.8 (C) / 100.0 (F) Weight: 299 lbs 08/09/2015 Blood Pressure 1: 146/82 Code: 8480-6 Heart Rate 1: 82 bpm Respiratory Rate: 22 bpm SpO2: 93% Temperature: 35.9 (C) / 96.6 (F) We ight: 310 lbs 05/22/2015 Blood Pressure 1: 156/76 Code: 8480-6 BMI: 41.0 Code: 29604-9 Heart Rate 1: 100 bpm Height: 6'1" Respiratory Rate: 22 bpm Temperature: 37 .2 (C) / 98.9 (F) Weight: 311 lbs 02/13/2015 Blood Pressure 1: 166/90 Code: 8480-6 BMI: 41.2 Code: 56524-2 Heart Rate 1: 72 bpm Height: 6'1" Respiratory Rate: 24 bpm SpO2: 93% Tempera ture: 36.9 (C) / 98.5 (F) Weight: 312 lbs 11/07/2014 Blood Pressure 1: 134/70 Code: 8480-6 BMI: 40.5 Code: 42415-6 Heart Rate 1: 76 bpm Height: 6'1" Respiratory Rate: 24 bpm Temperature: 36 .9 (C) / 98.4 (F) Weight: 307 lbs 10/04/2014 Blood Pressure 1: 144/86 Code: 8480-6 BMI: 40.1 Code: 97322-2 Heart Rate 1: 76 bpm Height: 6'1" Respiratory Rate: 28 bpm Temperature: 36 .6 (C) / 97.9 (F) Weight: 304 lbs 09/22/2014 Blood Pressure 1: 142/80 Code: 8480-6 BMI: 40.0 Code: 27514-0 Heart Rate 1: 80 bpm Height: 6'1" Respiratory Rate: 22 bpm SpO2: 96% Tempera ture: 36.6 (C) / 97.8 (F) Weight: 303 lbs 09/21/2014 Blood Pressure 1: 160/66 Code: 8480-6 BMI: 40.0 Code: 69277-3 Heart Rate 1: 90 bpm Height: 6'1" Respiratory Rate: 26 bpm SpO2: 94% Tempera ture: 35.7 (C) / 96.2 (F) Weight: 303 lbs 06/28/2014 Blood Pressure 1: 132/80 Code: 8480-6 BMI: 41.0 Code: 14548-7 Heart Rate 1: 64 bpm Height: 6' Respiratory Rate: 20 bpm Temperature: 36 .7 (C) / 98.0 (F) Weight: 302 lbs 06/10/2014 Blood Pressure 1: 152/70 Code: 8480-6 BMI: 41.1 Code: 90388-4 Heart Rate 1: 76 bpm Height: 6' Respiratory Rate: 20 bpm Temperature: 36 .6 (C) / 97.8 (F) Weight: 303 lbs 03/29/2014 Blood Pressure 1: 132/78 Code: 8480-6 BMI: 40.6 Code: 14821-0 Heart Rate 1: 84 bpm Height: 6' Respiratory Rate: 22 bpm Temperature: 37 .1 (C) / 98.8 (F) Weight: 299 lbs 11/30/2013 Blood Pressure 1: 136/84 Code: 8480-6 BMI: 39.2 Code: 04234-1 Heart Rate 1: 76 bpm Height: 6' Respiratory Rate: 20 bpm Temperature: 36 .8 (C) / 98.2 (F) Weight: 289 lbs 08/03/2013 Blood Pressure 1: 144/80 Code: 8480-6 Heart Rate 1: 86 bpm Respiratory Rate: 20 bpm Temperature: 36.6 (C) / 97.8 (F) Weight: 296 lbs 04/06/2013 Blood Pressure 1: 142/90 Code: 8480-6 BMI: 40.3 Code: 83618-9 Heart Rate 1: 88 bpm Height: 6' Respiratory Rate: 20 bpm Temperature: 36 .6 (C) / 97.8 (F) Weight: 297 lbs 12/01/2012 Blood Pressure 1: 124/78 Code: 8480-6 BMI: 38.7 Code: 36795-0 Heart Rate 1: 76 bpm Height: 6' Respiratory Rate: 20 bpm Temperature: 37 .2 (C) / 98.9 (F) Weight: 285 lbs 08/04/2012 Blood Pressure 1: 128/80 Code: 8480-6 BMI: 38.2 Code: 79219-4 Heart Rate 1: 76 bpm Height: 6' Respiratory Rate: 20 bpm Temperature: 37 .0 (C) / 98.6 (F) Weight: 282 lbs 05/29/2012 Blood Pressure 1: 138/78 Code: 8480-6 BMI: 36.6 Code: 36309-7 Heart Rate 1: 66 bpm Height: 6' Temperature: 36.7 (C) / 98.1 (F) Weight: 270 lbs 05/25/2012 Blood Pressure 1: 128/72 Code: 8480-6 BMI: 39.9 Code: 43534-9 Heart Rate 1: 74 bpm Height: 6' Temperature: 36.1 (C) / 97.0 (F) Weight: 294 lbs 04/07/2012 Blood Pressure 1: 124/76 Code: 8480-6 BMI: 39.9 Code: 50087-1 Heart Rate 1: 72 bpm Height: 6' Respiratory Rate: 20 bpm Temperature: 36 .9 (C) / 98.5 (F) Weight: 294 lbs 12/16/2011 Blood Pressure 1: 128/80 Code: 8480-6 BMI: 40.8 Code: 83828-2 Heart Rate 1: 74 bpm Height: 6' Temperature: 36.6 (C) / 97.8 (F) Weight: 301 lbs 12/03/2011 Blood Pressure 1: 132/76 Code: 8480-6 BMI: 40.8 Code: 04673-4 Heart Rate 1: 68 bpm Height: 6' Respiratory Rate: 20 bpm Temperature: 36 .8 (C) / 98.2 (F) Weight: 301 lbs 08/29/2011 Blood Pressure 1: 140/68 Code: 8480-6 BMI: 40.8 Code: 00459-4 Heart Rate 1: 80 bpm Height: 6' Respiratory Rate: 20 bpm Temperature: 36 .4 (C) / 97.6 (F) Weight: 301 lbs 05/30/2011 Blood Pressure 1: 134/82 Code: 8480-6 BMI: 41.5 Code: 23581-5 Heart Rate 1: 76 bpm Height: 6' [...] 1: 126/72 Code: 8480-6 BMI: 41.2 Code: 67508-2 Heart Rate 1: 76 bpm Height: 6' [...] 1: 152/90 Code: 8480-6 BMI: 37.7 Code: 43788-7 Heart Rate 1: 92 bpm Height: 6'1" [...] dm Encounters Encounter Performer Location Codes Date ([id number]) OFFICE/OUTPATIENT VISIT EST Diagnosis: Sore on toe[ICD10: L98.9] Neela FRENCH [place] CPT-4: 36396 07/06/2019 ([id number]) OFFICE/OUTPATIENT VISIT EST Diagnosis: Advanced chronic obstructive pulmonary disease[ICD10: J44.9] 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] Neela QURESHI [employer] [facility] [place] CPT-4: 46816 05/10/2019 ([id number]) OFFICE/OUTPATIENT VISIT EST Diagnosis: Chronic obstructive pulmonary disease with (acute) exacerbation[ICD10: J44.1] Diagnosis: Hypokalemia[ICD10: E87.6] 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] Neela QURESHI [employer] [facility] [place] CPT-4: 18934 03/29/2019 ([id number]) NURSE/OUTPATIENT VISIT EST Diagnosis: PNEUMOCOCCAL VACCINE[ICD10: Z23] [facility] [employer] [facility] CPT-4: 71396 03/04/2019 ([id number]) OFFICE/OUTPATIENT VISIT EST Diagnosis: Chronic obstructive pulmonary disease with (acute) exacerbation[ICD10: J44.1] Diagnosis: Other nonspecific abnormal finding of lung field[ICD10: R91.8] Neela ZHANG [place] CPT-4: 92083 01/05/2019 ([id number]) OFFICE/OUTPATIENT VISIT EST Diagnosis: Solitary pulmonary nodule[ICD10: R91.1] 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] Diagnosis: Tinea corporis[ICD10: B35.4] Neela HYMAN [employer] [facility] CPT-4: 56248 12/09/2018 ([id number]) OFFICE/OUTPATIENT VISIT EST Diagnosis: COUGH[ICD10: R05] Diagnosis: Chronic obstructive pulmonary disease, unspecified[ICD10: J44.9] Diagnosis: Other disorders of lung[ICD10: J98.4] Diagnosis: Other nonspecific abnormal finding of lung field[ICD10: R91.8] Neela HYMAN [employer] [facility] CPT-4: 87891 11/24/2018 ([id number]) OFFICE/OUTPATIENT VISIT EST Diagnosis: Pneumonia, unspecified organism[ICD10: J18.9] Amita HYMAN [employer] [facility] CPT-4: 19740 09/16/2018 ([id number]) OFFICE/OUTPATIENT VISIT EST Diagnosis: Pneumonia, unspecified organism[ICD10: J18.9] Neela HYMAN [employer] [facility] CPT-4: 37812 09/03/2018 ([id number]) OFFICE/OUTPATIENT VISIT EST Diagnosis: Personal history of pneumonia (recurrent)[ICD10: Z87.01] Diagnosis: Cough[ICD10: R05] Diagnosis: Essential (primary) hypertension[ICD10: I10] Diagnosis: Type 2 diabetes mellitus with hyperglycemia[ICD10: E11.65] [employer]a [employer] [facility] CPT-4: 30060 08/27/2018 OFFICE/OUTPATIENT VISIT EST Diagnosis: Pneumonia, unspecified organism[ICD10: J18.9] Diagnosis: Chronic obstructive pulmonary disease with (acute) exacerbation[ICD10: J44.1] Diagnosis: Other specified symptoms and signs involving the circulatory and respiratory systems[ICD10: R09.89] Diagnosis: Essential (primary) hypertension[ICD10: I10] Amita HYMAN [employer] [facility] CPT-4: 96884 08/13/2018 OFFICE/OUTPATIENT VISIT EST Diagnosis: Pneumonia, unspecified organism[ICD10: J18.9] Diagnosis: Other specified symptoms and signs involving the circulatory and respiratory systems[ICD10: R09.89] Amita Santiago HYMAN [employer] [facility] CPT-4: 14378 08/11/2018 ([id number]) OFFICE/OUTPATIENT VISIT EST Diagnosis: Dyspnea, unspecified[ICD10: R06.00] Diagnosis: Chronic obstructive pulmonary disease with (acute) exacerbation[ICD10: J44.1] Diagnosis: Pneumonia, unspecified organism[ICD10: J18.9] Amita HYMAN [employer] [facility] CPT-4: 96795 07/16/2018 ([id number]) OFFICE/OUTPATIENT VISIT EST Diagnosis: Acute bronchitis due to other specified organisms[ICD10: J20.8] Diagnosis: Cough[ICD10: R05] Amita HYMAN [employer] [facility] T-4: 26472 07/13/2018 ([id number]) OFFICE/OUTPATIENT VISIT EST Diagnosis: Essential (primary) hypertension[ICD10: I10] Diagnosis: Chronic obstructive pulmonary disease, unspecified[ICD10: J44.9] Diagnosis: Type 2 diabetes mellitus with hyperglycemia[ICD10: E11.65] Diagnosis: Mixed hyperlipidemia[ICD10: E78.2] Neela MIRZARYAN STERLING Octavio ZHANG [employer] [facility] CPT-4: 10338 06/03/2018 ([id number]) OFFICE/OUTPATIENT VISIT EST Diagnosis: Chronic obstructive pulmonary disease, unspecified[ICD10: J44.9] Gely ZHANG [employer] [facility] CPT-4: 42690 05/04/2018 ([id number]) OFFICE/OUTPATIENT VISIT EST Diagnosis: Essential (primary) hypertension[ICD10: I10] Diagnosis: Localized edema[ICD10: R60.0] Neela MIRZALINE Octavio HYMAN [employer] [facility] CPT-4: 03259 03/03/2018 ([id number]) OFFICE/OUTPATIENT VISIT EST Diagnosis: Localized edema[ICD10: R60.0] Neela MIRZALINE Octavio HYMAN [employer] [facility] CPT-4: 37237 02/17/2018 ([id number]) OFFICE/OUTPATIENT VISIT EST Diagnosis: FLU VACCINE[ICD10: Z23] Diagnosis: PNEUMOCOCCAL VACCINE[ICD10: Z23] Diagnosis: Type 2 diabetes mellitus without complications[ICD10: E11.9] Diagnosis: Mixed hyperlipidemia[ICD10: E78.2] Diagnosis: Essential (primary) hypertension[ICD10: I10] Diagnosis: Localized edema[ICD10: R60.0] Diagnosis: Chronic obstructive pulmonary disease, unspecified[ICD10: J44.9] Neela HYMAN [employer] [facility] CPT-4: 54946 02/10/2018 ([id number]) OFFICE/OUTPATIENT VISIT EST Diagnosis: Type 2 diabetes mellitus with hyperglycemia[ICD10: E11.65] Diagnosis: Mixed hyperlipidemia[ICD10: E78.2] Diagnosis: Essential (primary) hypertension[ICD10: I10] Diagnosis: Chronic obstructive pulmonary disease, unspecified[ICD10: J44.9] Diagnosis: Cutaneous abscess of back [any part, except buttock][ICD10: L02.212] Neela HYMAN [employer] [facility] CPT-4: 66595 11/05/2017 ([id number]) OFFICE/OUTPATIENT VISIT EST Diagnosis: Allergic urticaria[ICD10: L50.0] Gely HYMAN [employer] [facility] CPT-4: 64955 09/09/2017 ([id number]) OFFICE/OUTPATIENT VISIT EST Diagnosis: Generalized enlarged lymph nodes[ICD10: R59.1] Diagnosis: Acute gastritis without bleeding[ICD10: K29.00] Gely HYMAN [employer] [facility] CPT-4: 42476 08/07/2017 ([id number]) OFFICE/OUTPATIENT VISIT EST Diagnosis: Type 2 diabetes mellitus without complications[ICD10: E11.9] Diagnosis: Mixed hyperlipidemia[ICD10: E78.2] Diagnosis: Essential (primary) hypertension[ICD10: I10] Neela ZHANG [employer] [facility] CPT-4: 98674 08/04/2017 ([id number]) OFFICE/OUTPATIENT VISIT EST Diagnosis: Zoster without complications[ICD10: B02.9] Diagnosis: Acute sialoadenitis[ICD10: K11.21] Gely FRIEND [employer] [facility] CPT-4: 47181 06/04/2017 OFFICE/OUTPATIENT VISIT EST Diagnosis: Zoster without complications[ICD10: B02.9] Diagnosis: Acute sialoadenitis[ICD10: K11.21] Gely HYMAN [employer] [facility] CPT-4: 35090 06/02/2017 ([id number]) OFFICE/OUTPATIENT VISIT EST Diagnosis: Type 2 diabetes mellitus without complications[ICD10: E11.9] Diagnosis: Mixed hyperlipidemia[ICD10: E78.2] Diagnosis: Essential (primary) hypertension[ICD10: I10] Diagnosis: Chronic obstructive pulmonary disease, unspecified[ICD10: J44.9] Neela HYMAN [facility] CPT-4: 07339 05/05/2017 OFFICE/OUTPATIENT VISIT EST Diagnosis: Chronic obstructive pulmonary disease with acute lower respiratory infection[ICD10: J44.0] Diagnosis: Impacted cerumen, bilateral[ICD10: H61.23] Gely HYMAN DO [facility] CPT-4: 58141 04/10/2017 ([id number]) OFFICE/OUTPATIENT VISIT EST Diagnosis: FLU VACCINE[ICD10: Z23] Neela BUI [employer] [facility] CPT-4: 70910 03/28/2017 ([id number]) OFFICE/OUTPATIENT VISIT EST Diagnosis: Type 2 diabetes mellitus without complications[ICD10: E11.9] Diagnosis: Mixed hyperlipidemia[ICD10: E78.2] Diagnosis: Essential (primary) hypertension[ICD10: I10] Diagnosis: Chronic obstructive pulmonary disease, unspecified[ICD10: J44.9] Neela HYMAN [employer] [facility] CPT-4: 92913 02/03/2017 ([id number]) OFFICE/OUTPATIENT VISIT EST Diagnosis: Type 2 diabetes mellitus with hyperglycemia[ICD10: E11.65] Diagnosis: Mixed hyperlipidemia[ICD10: E78.2] Diagnosis: Essential (primary) hypertension[ICD10: I10] Diagnosis: Chronic obstructive pulmonary disease, unspecified[ICD10: J44.9] Neela HYMAN DO [facility] CPT-4: 17582 10/30/2016 ([id number]) NO CHARGE Diagnosis: Acute bronchitis, unspecified[ICD10: J20.9] Sammi Najera NEELA Octavio HYMAN [employer] [facility] CPT-4: 44613 08/30/2016 ([id number]) OFFICE/OUTPATIENT VISIT EST Diagnosis: Acute bronchitis, unspecified[ICD10: J20.9] Diagnosis: Other seasonal allergic rhinitis[ICD10: J30.2] Sammi HYMAN [employer] [facility] CPT-4: 37213 08/27/2016 ([id number]) OFFICE/OUTPATIENT VISIT EST Diagnosis: Type 2 diabetes mellitus without complications[ICD10: E11.9] Diagnosis: Mixed hyperlipidemia[ICD10: E78.2] Diagnosis: Essential (primary) hypertension[ICD10: I10] Neela HYMAN [employer] [facility] CPT-4: 19276 07/02/2016 ([id number]) OFFICE/OUTPATIENT VISIT EST Diagnosis: Acute bronchitis, unspecified[ICD10: J20.9] Sammi HYMAN DO [facility] CPT-4: 49814 06/14/2016 ([id number]) OFFICE/OUTPATIENT VISIT EST Diagnosis: Acute bronchitis, unspecified[ICD10: J20.9] Sammi HYMAN [employer] [facility] CPT-4: 94250 06/13/2016 ([id number]) OFFICE/OUTPATIENT VISIT EST Diagnosis: Essential (primary) hypertension[ICD10: I10] Neela HYMAN [employer] [facility] CPT-4: 77762 05/14/2016 ([id number]) OFFICE/OUTPATIENT VISIT EST Diagnosis: Essential (primary) hypertension[ICD10: I10] Neela HYMAN DO [facility] CPT-4: 58622 04/29/2016 ([id number]) OFFICE/OUTPATIENT VISIT EST Diagnosis: Unspecified abdominal pain[ICD10: R10.9] Diagnosis: Left lower quadrant pain[ICD10: R10.32] Diagnosis: Left upper quadrant pain[ICD10: R10.12] Diagnosis: Essential (primary) hypertension[ICD10: I10] Neela HYMAN DO [facility] CPT-4: 75632 04/22/2016 ([id number]) OFFICE/OUTPATIENT VISIT EST Diagnosis: Type 2 diabetes mellitus without complications[ICD10: E11.9] Diagnosis: Mixed hyperlipidemia[ICD10: E78.2] Diagnosis: Essential (primary) hypertension[ICD10: I10] Neela HYMAN DO [facility] CPT-4: 80429 04/01/2016 ([id number]) OFFICE/OUTPATIENT VISIT EST Diagnosis: Type 2 diabetes mellitus with hyperglycemia[ICD10: E11.65] Diagnosis: Mixed hyperlipidemia[ICD10: E78.2] Diagnosis: Essential (primary) hypertension[ICD10: I10] Neela HYMAN DO [facility] CPT-4: 27147 11/30/2015 ([id number]) OFFICE/OUTPATIENT VISIT EST Diagnosis: Type 2 diabetes mellitus with diabetic neuropathy, unspecified[ICD10: E11.40] Diagnosis: Essential (primary) hypertension[ICD10: I10] Diagnosis: Mixed hyperlipidemia[ICD10: E78.2] Neelasabina Zhanginna RONNA ASHER HYMAN DO [facility] CPT-4: 05872 08/29/2015 ([id number]) OFFICE/OUTPATIENT VISIT EST Diagnosis: COUGH[ICD10: R05] Diagnosis: Wheezing[ICD10: R06.2] Diagnosis: Type 2 diabetes mellitus with diabetic neuropathy, unspecified[ICD10: E11.40] Neela HYMAN DO [facility] CPT-4: 72361 08/14/2015 ([id number]) OFFICE/OUTPATIENT VISIT EST Diagnosis: Other seasonal allergic rhinitis[ICD10: J30.2] Diagnosis: Dyspnea, unspecified[ICD10: R06.00] Diagnosis: Wheezing[ICD10: R06.2] Sammi Najera NEELA HYMAN DO [facility] CPT-4: 69644 08/09/2015 ([id number]) OFFICE/OUTPATIENT VISIT EST Diagnosis: Essential (primary) hypertension[ICD10: I10] Diagnosis: Type 2 diabetes mellitus with hyperglycemia[ICD10: E11.65] Diagnosis: Mixed hyperlipidemia[ICD10: E78.2] Neela Orendinna ANNJYOTIRYAN HYMAN DO [facility] CPT-4: 34529 05/22/2015 ([id number]) OFFICE/OUTPATIENT VISIT EST Diagnosis: DM W/O COMPLICATION TYPE II[ICD9: 250.00] Diagnosis: - I - HYPERTENSION[ICD9: 401.9] Diagnosis: - I - HYPERLIPIDEMIA NEC/NOS[ICD9: 272.4] Diagnosis: Left hand paresthesia[ICD9: 782.0] Neela Yenni FRIEND ASHER Octavio ZHANG [employer] [facility] CPT-4: 30720 02/13/2015 ([id number]) OFFICE/OUTPATIENT VISIT EST Diagnosis: HYPERLIPIDEMIA NEC/NOS[ICD9: 272.4] Diagnosis: DM W/O COMPLICATION TYPE II[ICD9: 250.00] [facility]: 13136 11/07/2014 ([id number]) OFFICE/OUTPATIENT VISIT EST Diagnosis: ALLERGIC RHINITIS[ICD9: 477.9] Diagnosis: WHEEZING[ICD9: 786.07] Neela Duarte [employer] [facility] CPT-4: 83496 10/04/2014 ([id number]) OFFICE/OUTPATIENT VISIT EST Diagnosis: BRONCHITIS, ACUTE[ICD9: 466.0] Diagnosis: WHEEZING[ICD9: 786.07] Loren Duarte [employer] [facility] CPT-4: 28623 09/22/2014 ([id number]) OFFICE/OUTPATIENT VISIT EST Diagnosis: DYSPNEA[ICD9: 786.09] Diagnosis: WHEEZING[ICD9: 786.07] Diagnosis: Arrhythmia[ICD9: 427.9] Loren ZHANG [facility] CPT-4: 45814 09/21/2014 ([id number]) OFFICE/OUTPATIENT VISIT EST Diagnosis: DM W/O COMPLICATION TYPE II, 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] Diagnosis: - I - HYPERLIPIDEMIA NEC/NOS[ICD9: 272.4] Diagnosis: - I - HYPERTENSION[ICD9: 401.9] Neela MIRZALINE Octavio [facility] CPT-[facility]: 84762 06/28/2014 OFFICE/OUTPATIENT VISIT EST Diagnosis: SINUSITIS, ACUTE[ICD9: 461.9] Diagnosis: OTITIS MEDIA NOS[ICD9: 382.9] Sarah Sunshine NEELA Octavio [facility] CPT-[facility]: 87334 06/10/2014 ([id number]) OFFICE/OUTPATIENT VISIT EST Diagnosis: DM W/O COMPLICATION TYPE II[ICD9: 250.00] Diagnosis: - I - HYPERLIPIDEMIA NEC/NOS[ICD9: 272.4] Diagnosis: - I - HYPERTENSION[ICD9: 401.9] Neela HYMAN [facility] CPT-4: 21977 03/29/2014 ([id number]) OFFICE/OUTPATIENT VISIT EST Diagnosis: DM W/O COMPLICATION TYPE II[ICD9: 250.00] Diagnosis: - I - HYPERTENSION[ICD9: 401.9] Diagnosis: - I - HYPERLIPIDEMIA NEC/NOS[ICD9: 272.4] Diagnosis: Hand lesion[ICD9: 709.9] Neela MADRIGAL [facility] CPT-4: 68760 11/30/2013 ([id number]) OFFICE/OUTPATIENT VISIT EST Diagnosis: DM W/O COMPLICATION TYPE II[ICD9: 250.00] Diagnosis: HYPERLIPIDEMIA NEC/NOS[ICD9: 272.4] Diagnosis: HYPERTENSION[ICD9: 401.9] Neela VASQUEZ [facility] CPT-4: 50706 08/03/2013 ([id number]) OFFICE/OUTPATIENT VISIT EST Diagnosis: DM W/O COMPLICATION TYPE II, 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] Diagnosis: HYPERTENSION[ICD9: 401.9] Diagnosis: HYPERLIPIDEMIA NEC/NOS[ICD9: 272.4] Neela HYMAN [facility] CPT-4: 26303 04/06/2013 ([id number]) OFFICE/OUTPATIENT VISIT EST Diagnosis: DM W/O COMPLICATION TYPE II[ICD9: 250.00] Diagnosis: HYPERLIPIDEMIA NEC/NOS[ICD9: 272.4] Diagnosis: HYPERTENSION[ICD9: 401.9] Neela VASQUEZ [facility] CPT-4: 89065 12/01/2012 ([id number]) OFFICE/OUTPATIENT VISIT EST Diagnosis: DM W/O COMPLICATION TYPE II[ICD9: 250.00] Diagnosis: HYPERTENSION[ICD9: 401.9] Diagnosis: HYPERLIPIDEMIA NEC/NOS[ICD9: 272.4] Neela HYMAN [facility] CPT-4: 74874 08/04/2012 ([id number]) OFFICE/OUTPATIENT VISIT EST Diagnosis: URINARY FREQUENCY[ICD9: 788.41] Neela HYMAN [facility] CPT-4: 19243 06/01/2012 OFFICE/OUTPATIENT VISIT EST Diagnosis: Agitation[ICD9: 307.9] Diagnosis: Frequent urination[ICD9: 788.41] Janet Jean Baptiste NEELA JulissaMendez YENNI [facility] CPT-4: 53076 05/29/2012 OFFICE/OUTPATIENT VISIT EST Diagnosis: SINUSITIS, ACUTE[ICD9: 461.9] Diagnosis: OTALGIA[ICD9: 388.70] Neela Sergeushainna MIRZANEELA Octavio [facility] CPT-4: 48658 05/25/2012 OFFICE/OUTPATIENT VISIT EST Diagnosis: DM W/O COMPLICATION TYPE II, 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] Diagnosis: HYPERTENSION[ICD9: 401.9] Diagnosis: HYPERLIPIDEMIA NEC/NOS[ICD9: 272.4] Neela Sergeushainna ANNJUAN CARLOS DARLINE [facility] CPT-4: 38586 04/07/2012 OFFICE/OUTPATIENT VISIT EST Diagnosis: FINGER INJURY[ICD9: 959.5] Janet Markel MURILLO [facility] CPT-[facility]: 83076 12/16/2011 ([id number]) OFFICE/OUTPATIENT VISIT EST Diagnosis: DM W/O COMPLICATION TYPE II, 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] Diagnosis: HYPERTENSION[ICD9: 401.9] Diagnosis: HYPERLIPIDEMIA NEC/NOS[ICD9: 272.4] Neela Zhanginna ANNJUAN CARLOS DARLINE [facility] CPT-4: 96092 12/03/2011 ([id number]) OFFICE/OUTPATIENT VISIT EST Diagnosis: DM W/O COMPLICATION TYPE II[ICD9: 250.00] Diagnosis: HYPERLIPIDEMIA NEC/NOS[ICD9: 272.4] Diagnosis: HYPERTENSION[ICD9: 401.9] Neela MURILLO JulissaMendez SERGE VASQUEZ [facility] CPT-4: 68034 08/29/2011 OFFICE/OUTPATIENT VISIT EST Diagnosis: DM W/O COMPLICATION TYPE II[ICD9: 250.00] Diagnosis: HYPERLIPIDEMIA NEC/NOS[ICD9: 272.4] Diagnosis: HYPERTENSION[ICD9: 401.9] Neela MURILLO JulissaMendez SERGE VASQUEZ [facility] CPT-4: 19839 05/30/2011 OFFICE/OUTPATIENT VISIT EST Diagnosis: SKIN SENSATION DISTURB[ICD9: 782.0] Neela [facility] CPT-4: 75623 01/29/2011 OFFICE/OUTPATIENT VISIT EST Diagnosis: SKIN SENSATION DISTURB[ICD9: 782.0] Neela [facility] CPT-4: 80781 01/14/2011 OFFICE/OUTPATIENT VISIT EST Neela [facility] CPT- 4: 54204 01/01/2011 OFFICE/OUTPATIENT VISIT EST Neela [facility] CPT- 4: 66316 11/29/2010 ([id number]) OFFICE/OUTPATIENT VISIT EST Neela HORAN SMendez [facility] CPT-4: 19744 08/28/2010 ([id number]) OFFICE/OUTPATIENT VISIT, EST Neela WILDE SMendez [facility] CPT-4: 48322 06/05/2010 ([id number]) OFFICE/OUTPATIENT VISIT, EST Neela [facility] CPT-4: 39433 02/05/2010 ([id number]) OFFICE/OUTPATIENT VISIT, EST Neela [facility] CPT-4: 06879 10/09/2009 ([id number]) OFFICE/OUTPATIENT VISIT, EST Neela WILDE SMendez [facility] CPT-4: 87323 08/22/2009 Plan of Care Planned Activity Notes Codes Status Date Visit Diagnosis Plan: Sore on toe Discussion: Keep farhat an/dry Keflex Notify if worsens ICD-9 : 709.9 ICD-10 : L98.9 07/06/2019 Patient Education: Makenzieir- OptimizeRClaudia Blue [id number] https://www.Intoo.[facility]/samplemd/resources/getResource/61/[email or web address]-14z9-2w22-95 Completed 07/06/2019 Visit Diagnosis Plan: Lymphoma involving lung Discussi on: Doing weekly lab and chemo ICD-9 : 202.82 ICD-10 : C85.99 05/10/2019 Visit Diagnosis Plan: Advanced chronic obstructive pul monary disease Discussion: Continue oxygen and pulmonary rehab Follow Up: 3 months ICD-9 : 496 ICD-10 : J44.9 05/10/2019 Appointment: Neela Hymantel: [address] [place], [place] [address] FOLLOW UP 05/10/2019 Appointment: Neela Hymantel: [address] [place] [address] he called 04/14/19-- he was at physical therapy which is why he didn't make his appointment time. NO SHOW 04/13/2019 Visit Diagnosis Plan: Lymphoma involving lung Discussi [...] ICD-9 : 491.21 ICD-10 : J44.1 03/29/2019 Appointment: Neela Hyman WPtel: [address] [place], [place] [phone] Follow Up 03/29/2019 Appointment: Neela Hyman WPtel: [address] [place], [place] [phone] [place] INJECTION 03/04/2019 Visit Diagnosis Plan: Other nonspecific abnormal findi ng of lung field Discussion: Referral to pulmonology--will likely need bronchoscopy--path results discussed ICD-9 : 786.6 ICD-10 : R91.8 01/05/2019 Visit Diagnosis Plan: Chronic obstructiv e pulmonary disease with (acute) exacerbation Discussion: Increase SVNS with duoneb to QID Prednisone taper ICD-9 : 491.21 ICD-10 : J44.1 01/05/2019 Appointment: Neela Hyman WPtel: [address] [place], [place] [phone] [place] FOLLOW UP 01/05/2019 Patient Education: prednisone- OptimizeRX Coupon [phone] https://www.[employer]/samplemd/resources/getResource/61/[email or web address]-2z10-bg Completed 01/05/2019 Care Plan: Referral Order SNOMED-CT : 30 [id number] Pending 01/05/2019 Appointment: Neela Hyman WPtel: [address] [place], [place] [phone] [place] CANCELED 12/21/2018 Visit Diagnosis Plan: Solitary pulmonary nodule Discus esmer: CT guided needle biopsy of RUL lung mass ICD-9 : 793.11 ICD-10 : R91.1 12/09/2018 Visit Diagnosis Plan: Tinea corporis Discussion: Diflu can--hold simvastatin and fenofibrate while taking ICD-9 : 110.5 ICD-10 : B35.4 12/09/2018 Appointment: Neela Hyman WPtel: [address] [place] [address] [place] FOLLOW UP 12/09/2018 Appointment: Gely Harp [address] [place] [address] NO SHOW 12/01/2018 Visit Diagnosis Plan: Other [...] : J44.9 11/24/2018 Appointment: Neela Hyman WPtel: [address] [place], [place] [address] [place] FOLLOW UP 11/24/2018 Care Plan: PET IMAGE FULL BODY LOINC : 4 2711-2 Pending 11/24/2018 Appointment: Neela [facility]el[facility] [address] [facility] [place] Consult 09/21/2018 Visit Diagnosis Plan: Pneumonia, unspecified organism Discussion: Patient clinically improved. Recent CT scan from 09/07 showed unresolved right upper lobe pneumonia. Finished another 7 days of levaquin. Will repeat CBC early next week. [facility] 4 weeks. Patient states understanding. ICD-9 : 486 ICD-10 : J18.9 09/16/2018 Appointment: Amita Henderson [facility] [place] [phone] FOLLOW UP 09/16/2018 Visit Diagnosis Plan: Pneumonia, unspecified organism Discussion: Clinically patient feels and looks much better but need CT scan of chest due to ongoing round pneumonia in association with his known lymphoma ICD-9 : 486 ICD-10 : J18.9 09/03/2018 Appointment: Neela Hyman WPtel: [facility] FOLLOW UP 09/03/2018 Care Plan: CT THORAX [...] Essential (primary) hypertension Discussion: Stable on diltiazem. benicar, Toprol. Had ECHO last week. Requesting copies of results from cardiology. ICD-9 : 401.9 ICD-10 : I10 08/27/2018 Appointment: Amita Henderson [address] [facility] 08/27/2018 Visit Diagnosis Plan: Other specified sy mptoms and signs involving the circulatory and respiratory systems Discussion: Go back to 40 mg lasix daily and 20 of potassium. ECHO scheduled this week. Patient states understanding. ICD-9 : 785.9 ICD-10 : R09.89 08/13/2018 Visit Diagnosis Plan: Chronic obstructiv e [...] ICD-9 : 486 ICD-10 : J18.9 08/13/2018 Appointment: Amita Henderson [facility] [place] [id number] FOLLOW UP 08/13/2018 Appointment: Amita Henderson [facility] [place] [id number] CANCELED 08/13/2018 Patient Education: prednisone- OptimizeRX Coupon [id number] https://www.[employer]/samplelocr/resources/getResource/61/kc33nd4x-0r98-6ur8-0v Completed 08/13/2018 Visit Diagnosis Plan: Other specified [...] : J18.9 08/11/2018 Appointment: Amita Henderson [address] [place] [address] ACUTE ILLNESS 08/11/2018 Care Plan: CHEST X-RAY 2VW FRONTAL&LATL LOINC : 31466-5 Pending 07/20/2018 Visit Diagnosis Plan: Dyspnea, unspecified Discussion: CXR- to be completed at the hospital. Will call with results and any adjustments in plan. Solumedrol 125 administered in clinic Prednisone 20 mg BID x 5 days- start tomorrow ICD-9 : 786.09 ICD-10 : R06.00 07/16/2018 Appointment: Amita Henderson [address] [place] [address] ACUTE ILLNESS 07/16/2018 Patient Education: prednisone- OptimizeRX Coupon [id number] https://www.[employer]/samplemd/resources/getResource/61/68z5e8lj-cp35-2py4-m3 Completed 07/16/2018 Visit Diagnosis Plan: Acute bronchitis due to other sp ecified organisms Discussion: Kenalog 40 mg IM administered in clinic. Doxycycline called into [facility]. Take as directed. Continue nebulizer and Trelegy. Follow up if symptoms are not improving with treatment regimen. Patient states understanding of all instruction. ICD-9 : 466.0 ICD-10 : J20.8 07/13/2018 Appointment: Amita Henderson [address] [place] [address] ACUTE ILLNESS 07/13/2018 Patient Education: doxycycline hyclate- OptimizeRX Cou saritha [id number] https://www.Intoo.com/samplemd/resources/getResource/61/7v079t40-9b1l-7547-7c Completed 07/13/2018 Care Plan: [place] : [address]-3 Pending 07/13/2018 Care Plan: CBC Pending 07/13/2018 Care Plan: A1C HPLC LOINC : 12324-5 Pending 07/13/2018 Visit Diagnosis Plan: Mixed hyperlipidemia Discussion: Stable Lab discussed ICD-9 : 272.4 ICD-10 : E78.2 06/03/2018 Visit Diagnosis Plan: Essential (primary) hypertension Discussion: Stable ICD-9 : 401.9 ICD-10 : I10 06/03/2018 Visit Diagnosis Plan: Type 2 diabetes mellitus with hy perglycemia Discussion: Lab discussed Accuchecks daily Continue current meds ICD-9 : 250.02 ICD-10 : E11.65 06/03/2018 Visit Diagnosis Plan: Chronic obstructive pulmonary di sease, unspecified Discussion: Stable ICD-9 : 496 ICD-10 : J44.9 06/03/2018 Appointment: Neela Hyman WPtel: [address] [place] [address] [place] FOLLOW UP 06/03/2018 Visit Diagnosis Plan: [...] : J44.9 05/04/2018 Appointment: Gely Harp [address] [place] [address] ACUTE ILLNESS 05/04/2018 Visit Diagnosis Plan: Localized edema Discussion: Cont inue lasix and potassium at every other day Recheck lab and fwup in 3mos Follow Up: 3 months ICD-9 : 782.3 ICD-10 : R60.0 03/03/2018 Appointment: Neela Hyman WPtel: [address] [place] [address] [place] FOLLOW UP 03/03/2018 Patient Education: Patient Medication Summary Completed 03/03/2018 Visit Diagnosis Plan: Localized edema Discussion: Finch ge lasix and potassium to every other day Check Chem 7 in 2 weeks and fwup ICD-9 : 782.3 ICD-10 : R60.0 02/17/2018 Appointment: Neela Hyman WPtel: [address] [place] [address] [place] FOLLOW UP 02/17/2018 Patient Education: Patient [...] E78.2 02/10/2018 Appointment: Ne[facility]el[facility] [facility] [facility] 02/10/2018 Patient Education: [...] I10 11/05/2017 Appointment: Neela Hyman WPtel: [address] [id number] FOLLOW UP 11/05/2017 Patient Education: Patient Medication Summary Completed 11/05/2017 Patient Education: Patient Medication Summary Completed 11/03/2017 Care Plan: [place] : [address]84[address]-2 Pending 11/03/2017 Care Plan: LIPID PANEL LOINC : 82999-5 Pending 11/03/2017 Care Plan: CBC Pending 11/03/2017 Care Plan: A1C HPLC LOINC : 15204-9 Pending 11/03/2017 Visit Diagnosis Plan: Allergic urticaria [...] : L50.0 09/09/2017 App[facility]ment[facility] [facility] 09/09/2017 Patient Education: Patient [...] : K29.00 08/07/2017 Appointment: [facility] [facility] Follow Up 08/07/2017 Patient Education: Patient Medication Summary Completed 08/07/2017 Visit Diagnosis Plan: Essential (primary) hypertension Discussion: Increase Cardizem CD to 360mg daily ICD-9 : 401.9 ICD-10 : I10 08/04/2017 Visit Diagnosis Plan: Type 2 diabetes mellitus without complications Discussion: Accuchecks daily Lab discussed Continue current meds ICD-9 : 250.00 ICD-10 : E11.9 08/04/2017 Appointment: Neela Hyman WPtel: [address] [facility] FOLLOW UP 08/04/2017 Patient Education: Patient Medication Summary Completed 08/04/2017 Patient Education: Patient Medication Summary Completed 07/31/2017 Care Plan: [place] : [address]-7 Pending 07/31/2017 Care Plan: ASSAY THYROID STIM HORMONE Pen ding 07/31/2017 Care Plan: LIPID PANEL LOINC : 19159-7 Pending 07/31/2017 Care Plan: CBC Pending 07/31/2017 Care Plan: A1C HPLC LOINC : 95629-0 Pending 07/31/2017 Patient Education: Patient Medication Summary Completed 06/19/2017 Patient Education: Patient Medication Summary Completed 06/09/2017 Care Plan: CT SOFT TISSUE [place] : [address]-8 Pending 06/09/2017 Visit Diagnosis Plan: Acute sialoadenitis [...] ICD-10 : B02.9 06/04/2017 Appointment: Gely Harp [address] [place], [place] [phone] ACUTE ILLNESS 06/04/2017 Patient Education: Patient Medication [...] ICD-10 : B02.9 06/02/2017 Appointment: Gely Harp [address] [place], [place] [phone] ACUTE ILLNESS 06/02/2017 Patient [...] E78.2 05/05/2017 Appointment: Neela Hyman WPtel: [phone] [facility] FOLLOW UP 05/05/2017 Patient Education: Patient Medication Summary Completed 05/05/2017 Patient Education: Patient Medication Summary Completed 05/01/2017 Care Plan: A1C HPLC [facility] : 00360-9 Pending 05/01/2017 Visit Diagnosis Plan: Chronic obstructiv [...] : H61.23 04/10/2017 Appointment: Gely Harp [address] [place] [address] ACUTE ILLNESS 04/10/2017 Patient Education: Patient Medication Summary Completed 04/10/2017 Appointment: Neela Hyman WPtel: [address] [place] [address] INJECTION 03/28/2017 Patient Education: Patient Medication Summary Completed 03/28/2017 Visit Diagnosis Plan: Chronic obstructive pulmonary di sease, unspecified Discussion: Stable ICD-9 : 496 ICD-10 : J44.9 02/03/2017 Visit Diagnosis Plan: Essential (primary) hypertension Discussion: Stable ICD-9 : 401.9 ICD-10 : I10 02/03/2017 Visit Diagnosis Plan: Type 2 diabetes mellitus without complications Discussion: Lab discussed Accuchecks daily Continue current meds Follow Up: 3 months ICD-9 : 250.00 ICD-10 : E11.9 02/03/2017 Appointment: Neela Hyman WPtel: [address] [place] [address] FOLLOW UP 02/03/2017 Patient Education: Patient Medication Summary Completed 02/03/2017 Patient Education: Patient Medication Summary Completed 01/30/2017 Care Plan: [place] : 935[address]-7 Pending 01/30/2017 Care Plan: LIPID PANEL LOINC : 91607-7 Pending 01/30/2017 Care Plan: CBC Pending 01/30/2017 Care Plan: A1C HPLC LOINC : 84005-1 Pending 01/30/2017 Care Plan: ASSAY OF PSA [...] : J44.9 10/30/2016 Appointment: Neela Hyman WPtel: [address] [place], [place] [address] [place] 6/ lm ~sl 10/30 confirmed~sl FOLLOW UP 11/2016 Patient Education: Patient Medication Summary Completed 10/30/2016 Patient Education: Patient Medication Summary Completed 10/24/2016 Visit Diagnosis Plan: Acute bronchitis, unspecified Di scussion: Patient sounds and looks much improved Continue current regimen Keep appt with Dr Levi for Friday Follow up PRN ICD-9 : 466.0 ICD-10 : J20.9 08/30/2016 Appointment: [facility]ammi [facility] [facility] [facility] 4/6 rang and rang rang [...] : J20.9 08/27/2016 Appointment: Sammi [facility]ajera [facility] [facility] FO[facility] 08/27/2016 Patient Education: Patient Medication Summary Completed 08/27/2016 Care Plan: Referral Order SNOMED-CT : 30 [id number] Pending 08/27/2016 Visit Diagnosis Plan: Type 2 [...] 272.4 ICD-10 : E78.2 07/02/2016 Appointment: Neela yHman WPtel: [address] [place] [address] 07/01 rang and rang`sl FOLLOW UP 7 Patient Education: Patient Medication Summary Completed 07/02/2016 Patient Education: Patient Medication Summary Completed 06/27/2016 Care Plan: LIPID PANEL LOINC : 95729-6 Pending 06/27/2016 Care Plan: [place] : [address]-6 Pending 06/27/2016 Care Plan: A1C HPLC LOINC : 72809-2 Pending 06/27/2016 Visit Diagnosis Plan: Acute bronchitis, [...] ICD-10 : J20.9 06/14/2016 Appointment: Sammi Najera [address] [place] [address] FOLLOW UP 06/14/2016 Patient Education: Patient Medication [...] ICD-10 : J20.9 06/13/2016 Appointment: Sammi Najera [address] [place] [address] ACUTE ILLNESS 06/13/2016 Patient Education: Patient Medication Summary Completed 06/13/2016 Care Plan: CHEST X-RAY 2VW FRONTAL&LATL LOINC : 05531-3 Pending 06/13/2016 Visit Plan: Increase metoprolol to 100mg po BID BP readings and BP check in 1month 05/14/2016 Appointment: Neela Hyman WPtel: [address] [place], [place] [phone] 05/13 rang and rang`sl FOLLOW UP 6 Patient Education: Patient Medication Summary Completed 05/14/2016 Visit Plan: Increase metoprolol to 50mg BID BP check in 1 week f/u BP appt 2 weeks consider musculoskeletal if pain returns 04/29/2016 Appointment: Neela Hyman WPtel: [address] [place], [place] [phone] 04/25 confimred~sl FOLLOW UP 04/29/2016 Patient Education: Patient Medication Summary Completed 04/29/2016 Visit Plan: Stat CT scan of abdomen/pelv is to look for stone Hydrate and use tramadol prn Increase metoprolol to 25mg po BID Will see urology pending CT scan results 04/22/2016 Appointment: Neela Hyman WPtel: [address] [place], [place] [phone] 04/17 confirmed-sp ACUTE ILLNESS [...] flu shot 04/01/2016 Appointment: Neela Hyman WPtel: [address] [place], [place] [phone] FOLLOW UP 04/01/2016 Patient Education: Patient Medication Summary Completed 04/01/2016 Patient Education: [facility] - Saving AutoInj - 18-64 - Dynamic Heber l ID Completed 04/01/2016 Patient Education: Patient Medication Summary Completed 03/28/2016 Care Plan: A1C HPLC LOINC : 07284-1 Pending 03/28/2016 Care Plan: [place] : 94[address]-5 Pending 03/28/2016 Visit Plan: Lab discussed Continue curre nt meds Accuchecks daily 11/30/2015 Appointment: Neela Hyman WPtel: [address] [place], [place] [phone] 7/6 confirmed~sl FOLLOW UP 11/30/2015 Patient Education: Patient Medication Summary Completed 11/30/2015 Appointment: Neela Hyman WPtel: [address] [place], [place] [phone] RESCHEDULED 11/28/2015 Patient Education: Patient Medication Summary Completed 11/23/2015 Care Plan: [place] : 77[address]-7 Pending 11/23/2015 Care Plan: LIPID PANEL LOINC : 48223-3 Pending 11/23/2015 Care Plan: CBC Pending 11/23/2015 Care Plan: A1C HPLC LOINC : 11245-4 Pending 11/23/2015 Visit Plan: Lab discussed Accuchecks richard ly Continue current meds Cymbalta helping with feet and mood 08/29/2015 Appointment: Neela Hyman WPtel: [address] [place], [place] [phone] FOLLOW UP 08/29/2015 Patient Education: Patient Medication Summary Completed 08/29/2015 Visit Plan: Check CXR Stop all steroids and steroid inhalers Use SVN with but change to duoneb Add singulair for allergy etiology Change fluoxetine to cymbalta 60mg daily Viagra samples given to try prn--warned of no nitrates 08/14/2015 Appointment: Neela Hyman WPtel: [address] [place], [place] [phone] lm to reschedule ~sl 07/27 lm ~sl 08/09 busy 08/10 conf irmed-sp Annual Well Visit 08/14/2015 Patient Education: Patient Medication Summary Completed 08/14/2015 Care Plan: CHEST X-RAY 2VW FRONTAL&LATL LOINC : 58268-3 Ordered 08/14/2015 Visit Plan: Decadron 8mg given [...] Sammi Najera [address] [id number] ER Follow UP 08/09/2015 Patient Education: Patient Medication Summary Completed 08/09/2015 Patient Education: [facility] - Saving AutoInj - 18-64 - [...] with it 05/22/2015 Appointment: Neela Hyman WPtel: [address] [place], [place] [phone] 05/17 confirmed~sl FOLLOW UP 05/22/2015 Patient Education: Patient Medication Summary Completed 05/22/2015 Patient Education: Patient Medication Summary Completed 05/15/2015 Visit Plan: Obtain EMGs done at [place] from when fractured left arm Lab discussed Accuchecks daily 02/13/2015 Appointment: Neela Hyman WPtel: [address] [place], [place] [phone] 02/10 confrimed FOLLOW UP 02/13/2015 Patient Education: Patient Medication Summary Completed 02/13/2015 Patient Education: Patient Medication Summary Completed 02/09/2015 Visit Plan: discussed lab add fenofibrat e 134mg po daily recheck fasting lab in 3 months, CBC, CMP, Lipids, hgb AIC 11/07/2014 Appointment: Neela Hyman WPtel: [address] [place], [place] [phone] 11/04 appt confirmed cn FOLLOW UP 015 Patient Education: Patient Medication Summary Completed 11/07/2014 Patient Education: Patient Medication Summary Completed 11/03/2014 Visit Plan: Continue loratadine 10mg richard ly Notify if symptoms return 10/04/2014 Appointment: Neela Hyman WPtel: [address] [place], [place] [phone] confirmed on 10/03 at 2:42pm FOLLOW UP 09/23 Patient Education: Patient Medication Summary Completed 10/04/2014 Appointment: Neela Hyman WPtel: [address] [place], [place] [phone] ACUTE ILLNESS 09/28/2014 Appointment: Loren Garza WPtel: [address] [place], [place] [phone] FOLLOW UP 09/22/2014 Patient Education: Patient Medication Summary Completed 09/22/2014 Appointment: Loren Garza WPtel: [address] [place], [place] [phone] ACUTE ILLNESS 09/21/2014 Patient Education: Patient Medication Summary Completed 09/21/2014 Patient Education: [facility] - Saving AutoInj - 18+ - Dynamic Portal ID Completed 09/21/2014 Visit Plan: Lab discussed Continue daily accuchecks Continue current meds 06/28/2014 Appointment: Neela Hyman WPtel: [address] [place], [place] [phone] FOLLOW UP 06/28/2014 Patient Education: Patient Medication Summary Completed 06/28/2014 Patient Education: Patient Medication Summary Completed 06/23/2014 Appointment: Sarah Sunshine WPtel: [address] [place], [place] [phone] ACUTE ILLNESS 06/10/2014 Patient Education: Patient Medication Summary Completed 06/10/2014 Patient Education: [facility] - Saving AutoInj - 18+ - Dynamic Portal ID Completed 06/10/2014 Visit Plan: Lab discussed Continue daily accuchecks Continue current meds 03/29/2014 Appointment: Neela Hyman WPtel: [address] [place], [place] [phone] FOLLOW UP 03/29/2014 Patient Education: Patient Medication Summary Completed 03/29/2014 Patient Education: Patient Medication Summary Completed 03/23/2014 Visit Plan: Lab discussed Continue curre nt meds and accuchecks See surgery for removal of hand lesion 11/30/2013 Appointment: Neela Hyman WPtel: [address] [place] [address] 11/29 no answer FOLLOW UP 11/30/2013 Patient Education: Patient Medication Summary Completed 11/30/2013 Visit Plan: Lab discussed Continue curre nt meds 08/03/2013 Appointment: Neela Hyman WPtel: [address] [place] [address] FOLLOW UP 08/03/2013 Patient Education: Patient Medication Summary Completed 08/03/2013 Visit Plan: Lab Discussed Will continue current meds and pt will get back on diet/exercise Check lab in 4mos and fwup 04/06/2013 Appointment: Neela Hyman WPtel: [address] [place] [address] FOLLOW UP 04/06/2013 Patient Education: Patient Medication Summary Completed 04/06/2013 Visit Plan: Lab discussed Continue daily accuchecks 12/01/2012 Appointment: Neela Hyman WPtel: [address] [place], [place] [phone] 11/30 no answer FOLLOW UP 12/01/2012 Patient Education: Patient Medication Summary Completed 12/01/2012 Visit Plan: Continue current meds and da russell accuchecks Lab discussed 08/04/2012 Appointment: Neela Hyman WPtel: [address] [place], [place] [phone] [place] FOLLOW UP 08/04/2012 Patient Education: Patient Medication Summary Completed 08/04/2012 Appointment: Neela Hyman WPtel: [address] [place], [place] [phone] [facility] 06/01/2012 Patient Education: Patient Medication Summary Completed 06/01/2012 Appointment: Janet Jean Baptiste WPtel: [address] [place], [place] [phone] FOLLOW UP 05/29/2012 Patient Education: Patient Medication Summary Completed 05/29/2012 Visit Plan: pt states Dr. Hyman told h is to increase his Prozac dose while she was talking to her at [facility]. Discussed that pt. should not increase or decrease dosage without Dr's knowledge. Pt. will seek hearing test here in town at the hearing aid place on [address]. Discussed that ear pain is likely caused by sinus pressure. Pt. will notify if no improvement. 05/25/2012 Appointment: Janet Jean Baptiste WPtel: [address] [place] [address] ACUTE ILLNESS 05/25/2012 Patient Education: Patient Medication Summary Completed 05/25/2012 Visit Plan: Continue current meds Contin ue daily accuchecks but alternate times Increase fish oil to 3gm daily 04/07/2012 Appointment: Neela Hyman WPtel: [address] [place] [address] 04/06 FOLLOW UP 04/07/2012 Patient Education: Patient Medication Summary Completed 04/07/2012 Appointment: Janet Jean Baptiste WPtel: [address] [place], [place] [phone] ACUTE ILLNESS 12/16/2011 Patient Education: Patient Medication Summary Completed 12/16/2011 Visit Plan: Increase 12/03/2011 Appointment: Neela Hyman WPtel: [address] [place], [place] [phone] FOLLOW UP 12/03/2011 Patient Education: Patient Medication Summary Completed 12/03/2011 Visit Plan: Continue current meds Contin ue accuchecks 08/29/2011 Appointment: Neela Hyman WPtel: [address] [place], [place] [phone] FOLLOW UP 08/29/2011 Patient Education: Patient Medication Summary Completed 08/29/2011 Visit Plan: Continue current meds except restart zocor 05/30/2011 Appointment: Neela Hyman WPtel: [address] [place], [place] [phone] FOLLOW UP 05/30/2011 Patient Education: Patient Medication Summary Completed 05/30/2011 Visit Plan: Continue tennis elbow strap May go back to weight-lifing--light weigts every other day 01/29/2011 Appointment: Neela Hyman WPtel: [address] [place], [place] [id number] FOLLOW UP 01/29/2011 Patient Education: Patient Medication Summary Completed 01/29/2011 Visit Plan: Continue tennis elbow strap and anti-inflammatories 01/14/2011 Appointment: Neela Hyman WPtel: [address] [place], [place] [phone] FOLLOW UP 01/14/2011 Appointment: Janet Jean Baptiste WPtel: [address] [place], [place] [phone] NEW PATIENT 01/14/2011 Patient Education: Patient Medication Summary Completed 01/14/2011 Appointment: Neela Hyman WPtel: [address] [place], [place] [phone] FOLLOW UP 01/08/2011 Appointment: Neela Hyman WPtel: [address] [place], [place] [phone] FOLLOW UP 01/01/2011 Appointment: Neela Hyman WPtel: [address] [place], [place] [phone] [facility] 01/01/2011 Patient Education: Patient Medication Summary [...] given. 11/29/2010 Appointment: Janet Jean Baptiste WPtel: [address] [place] [address] ACUTE ILLNESS 11/29/2010 Patient Education: Patient Medication Summary Completed 11/29/2010 Visit Plan: Cont current meds Check CMP, Lipids, HbA1C 08/28/2010 Appointment: Neela Hyman WPtel: [address] [place] [address] FOLLOW UP 08/28/2010 Patient Education: Patient Medication Summary Completed 08/28/2010 Visit Plan: Cont current meds and accuch ecks Add Zocor 40mg q HS Check Lipids and HbA1C in 3mos 06/05/2010 Appointment: Neela Hyman WPtel: [address] [place] [address] FOLLOW UP 06/05/2010 Patient Education: Patient Medication Summary Completed 06/05/2010 Visit Plan: Check Lipids and HbA1C 02/05/2010 Appointment: Neela Hyman WPtel: [address] [place] [address] FOLLOW UP 02/05/2010 Patient Education: Patient Medication Summary Completed 02/05/2010 Visit Plan: HbA1C in 3mos. Continue Accu checks BID alternating times. Check HbA1C, CMP, Lipids 10/09/2009 Appointment: Neela Hyman WPtel: [address] [place] [address] FOLLOW UP 10/09/2009 Patient Education: Patient Medication Summary Completed 10/09/2009 Visit Plan: Saline nasal flushes prn. Ty lenol/Motrin prn headache. Notify if persists/symptoms worsening. 08/22/2009 Appointment: Neela Hyman WPtel: [address] [place] [address] ACUTE ILLNESS 08/22/2009 Patient Education: Patient Medication Summary Completed 08/22/2009 Referral: [facility] [phone] [id number] [place] Office will verfy his insurance then they will contact patient Completed Referral: Shahbaz Brennan [facility] [address] [facility] [place] [address] [id number] [place] Referral Completed Referral: Ion Levi [address] [id number] [place] Referral Appointment Requested Referral: Ion Levi [address] [id number] [place] Referral Appointment Requested Instructions Comment . [...] with it . Obtain EMGs done at [place] from when fractured left arm Lab discussed [...] while she was talking to her at [facility]. Discussed that pt. should not increase or decrease dosage without Dr's knowledge. Pt. will seek hearing test here in town at the hearing aid place on [address]. Discussed that ear pain is likely caused [...]
--- OUTSIDE RECORDS SUMMARY | 2019-12-09 09:16 | XMS REPORT | CCD ---
Author Author Michael Hyman D.O. Organization [facility] DO [facility] Address [address] [place] [address] Phone Care Team Providers Care Learning Officer Name Role Phone Neela Hyman D.O., PP Unavailable CCM Unavailable Summary Purpose Interface Exchange Insurance Providers Payer name Policy type / Coverage type Covered constitution party ID Effective Begin Date Effective End Date ABS FOR [employer] Commercial Insurance [id number] Unknown Family History Family History data not found Social History Social History Element Codes Description Effective Dates Marital status Unknown 05/30/[address]: 9980812 Former smoker quit 25 years ago 01/01/2011 [...] Fill Instructions Keflex 500 mg capsule RxNorm: 353578 1 Capsule(s) Oral three ti mes a day 07/06/2019 07/13/2019 Active Singulair 10 mg tablet RxNorm: 745930 TAKE ONE TABLET BY MOUTH EVERY EVENING 07/06/2019 01/02/2020 Active Reselected prescribe r from [facility] to [facility]EL[facility] Singulair 10 mg tablet RxNorm: 741434 TAKE ONE TABLET BY MOUTH EVERY EVENING 06/22/2019 07/05/2019 Inactive Reselected prescribe r from PEG MAHER to [facility]EL[facility] Zocor 40 mg tablet RxNorm: 950485 TAKE ONE TABLET BY M OUTH EVERY NIGHT AT BEDTIME 06/21/2019 11/17/2019 Active MagOx 400 mg (241.3 mg magnesium) tablet RxNorm: 432353 1 Table t(s) Oral QD 06/21/2019 08/20/2019 Active diltiazem ER 360 mg capsule,24 hr,extended release RxNorm: 8 90762 TAKE ONE CAPSULE BY MOUTH AT BEDTIME -REPLACES 300MG 05/17/2019 11/12/2019 Active MagOx 400 mg (241.3 mg magnesium) tablet RxNorm: 518746 1 Table t(s) Oral QD 04/26/2019 06/20/2019 Inactive Lasix 40 mg tablet RxNorm: 183827 40 MG PO DAILY 04/12/2019 No Stop Da te Active Benicar 40 mg tablet RxNorm: 483298 1 Tablet(s) Oral QD 03/29/2019 Active potassium chloride ER 20 mEq tablet,extended release RxNorm: 421045 1 Tablet(s) Oral two times a day 03/29/2019 06/27/2019 Inactive metformin 500 mg tablet RxNorm: 725835 2 Tablet(s) Oral two afshan es a day 03/29/2019 No Stop Date Active potassium chloride ER 20 mEq tablet,extended release RxNorm: 157558 1 Tablet(s) Oral QD 03/29/2019 03/28/2019 Inactive Benicar 40 mg tablet RxNorm: 116964 1 Tablet(s) Oral QD 03/29/2019 Inactive MagOx 400 mg (241.3 mg magnesium) tablet RxNorm: 638318 1 Table t(s) Oral QD 03/29/2019 04/25/2019 Inactive fenofibrate micronized 134 mg capsule RxNorm: 598065 TA KE ONE CAPSULE BY MOUTH EVERY DAY 03/05/2019 08/31/2019 Active duloxetine 60 mg capsule,delayed release RxNorm: 132813 1 Capsu le(s) PO QD 01/28/2019 07/26/2019 Active Trelegy Ellipta 100 mcg-62.5 mcg-25 mcg powder for inhalatio n RxNorm: 3006233 1 Puff(s) INH QD 01/06/2019 12/31/2019 Active 90 day supply prednisone 20 mg tablet RxNorm: 419179 1 Tablet(s) PO T ID for 3 days then 1 po BID for 3 days then 1 po daily for 3 days 01/05/2019 03/28/2019 Inacti ve metformin ER 1,000 mg tablet,extended release 24hr RxNorm: 1 181007 TAKE TWO TABLETS (1000MG) BY MOUTH TWO TIMES A DAY 12/22/2018 03/28/2019 Inacti ve Diflucan 100 mg tablet RxNorm: 584467 1 Tablet(s) PO QD 12/09/2018 Inactive albuterol sulfate 2.5 mg/3 mL (0.083 %) solution for n ebulization RxNorm: 352197 3 Milliliter(s) INH ONE VIAL VIA NEBULIZER EVERY 4 HOURS 019 07/21/2019 Active [AttnRPh: Saving apply/adjudicate RxGRP: SG20 RxBIN:[id number] RxPCN: ID#:[id number]] prednisone 20 mg tablet RxNorm: 849579 1 Tablet(s) PO B ID for 4 days then 1 po daily for 4 days 11/24/2018 01/04/2019 Inactive Trelegy Ellipta 100 mcg-62.5 mcg-25 mcg powder for inhalatio n RxNorm: 1701465 1 Puff(s) INH QD 10/27/2018 01/06/2019 Inactive 90 day supply metoprolol succinate ER 100 mg tablet,extended release 24 hr RxNorm: 757770 TAKE ONE TABLET BY MOUTH TWICE A DAY 10/13/2018 07/09/2019 Active diltiazem ER 360 mg capsule,24 hr,extended release RxNorm: 8 61910 TAKE ONE CAPSULE BY MOUTH AT BEDTIME -REPLACES 300MG 10/13/2018 04/10/2019 Inactive Trelegy Ellipta 100 mcg-62.5 mcg-25 mcg powder for inhalatio n RxNorm: 1548529 INHALE ONE PUFF ONCE DAILY 09/07/2018 10/27/2018 Inactive Levaquin 750 mg tablet RxNorm: 093162 1 Tablet(s) PO QD 09/07/2018 Inactive Levaquin 750 mg tablet RxNorm: 681986 1 Tablet(s) PO QD 09/07/2018 Inactive prednisone 20 mg tablet RxNorm: 929755 2 Tablet(s) PO QAM 08/13/2018 08/19/2018 Inactive Levaquin 500 mg tablet RxNorm: 963867 1 Tablet(s) PO QD 08/11/2018 Inactive fenofibrate micronized 134 mg capsule RxNorm: 679187 TA KE ONE CAPSULE BY MOUTH EVERY DAY 08/10/2018 02/05/2019 Inactive prednisone 20 mg tablet RxNorm: 609788 1 Tablet(s) PO BID 07/16/2018 07/20/2018 Inactive doxycycline hyclate 100 mg capsule RxNorm: 4982308 1 Capsule(s) PO BID 07/13/2018 07/22/2018 Inactive duloxetine 60 mg capsule,delayed release RxNorm: 480564 TAKE ONE CAPSULE BY MOUTH ONCE A DAY 07/08/2018 01/28/2019 Inactive Lasix 40 mg tablet RxNorm: 570706 1 TABLET(S) PO QAM 06/08/201809/05 Inactive potassium chloride ER 20 mEq tablet,extended release(p art/cryst) RxNorm: 1167040 1 TABLET(S) PO QD 06/08/2018 09/05/2018 Inactive metformin ER 1,000 mg tablet,extended release 24hr RxNorm: 1 343611 TAKE TWO TABLETS (1000MG) BY MOUTH TWO TIMES A DAY 06/01/2018 11/27/2018 Inacti ve Benicar HCT 40 mg-25 mg tablet RxNorm: 221596 TAKE ONE TABLET BY MOUTH ONCE DAILY 05/11/2018 03/28/2019 Inactive Zocor 40 mg tablet RxNorm: 949683 TAKE ONE TABLET BY M OUTH EVERY NIGHT AT BEDTIME 05/11/2018 06/20/2019 Inactive Trelegy Ellipta 100 mcg-62.5 mcg-25 mcg powder for inhalatio n RxNorm: 1659125 1 PUFF(S) INH QD 04/06/2018 07/04/2018 Inactive diltiazem ER 360 mg capsule,24 hr,extended release RxNorm: 8 14387 1 Capsule(s) PO QHS replaces 300mg dose 03/30/2018 09/25/2018 Inactive Trelegy Ellipta 100 mcg-62.5 mcg-25 mcg powder for inhalatio n RxNorm: 8840890 1 Puff(s) INH QD 02/24/2018 02/23/2018 Inactive Trelegy Ellipta 100 mcg-62.5 mcg-25 mcg powder for inhalatio n RxNorm: 6070373 1 Puff(s) INH QD 02/24/2018 02/23/2018 Inactive Trelegy Ellipta 100 mcg-62.5 mcg-25 mcg powder for inhalatio n RxNorm: 3987499 1 Puff(s) INH QD 02/24/2018 04/05/2018 Inactive Lasix 40 mg tablet RxNorm: 837855 1 Tablet(s) PO QAM 02/10/201803/11 Inactive potassium chloride ER 20 mEq tablet,extended release(p art/cryst) RxNorm: 1471481 1 Tablet(s) PO QD 02/10/2018 03/11/2018 Inactive fenofibrate micronized 134 mg capsule RxNorm: 348698 1 Capsule( s) PO QD 01/30/2018 07/28/2018 Inactive metoprolol succinate ER 100 mg tablet,extended release 24 hr RxNorm: 809502 TAKE ONE TABLET BY MOUTH TWICE A DAY 12/30/2017 09/25/2018 Inactive metformin ER 1,000 mg tablet,extended release 24hr RxNorm: 1 869989 1 Tablet(s) PO BID 11/17/2017 05/15/2018 Inactive [SAVINGS FOR NON -COVERED DRUGS -- BIN:844727, PCN: ASPROD1, Group: XXXXX, ID# [id number], Questions: . THIS IS NOT INSURANCE.] Benicar HCT 40 mg-25 mg tablet RxNorm: 200020 1 Tablet(s) PO QD 05/10/2018 Inactive [SAVINGS FOR NON-COVERED JESU GS -- BIN:118660, PCN: ASPROD1, Group: XXXXX, ID# [id number], Questions: . THIS IS NOT INSURANCE.] Bactroban 2 % topical cream RxNorm: 365586 Application TOP BID 10/2409/02/2018 Inactive clindamycin HCl 300 mg capsule RxNorm: 230462 2 Capsule(s) PO TID 0 11/05/2017 11/18/2017 Inactive duloxetine 60 mg capsule,delayed release RxNorm: 976741 Capsule(s) TAKE ONE CAPSULE BY MOUTH ONCE DAILY 09/24/2017 09/23/2017 Inactive triamcinolone acetonide 0.1 % topical ointment RxNorm: 4821224 1 TOP BID 09/09/2017 11/04/2017 Inactive Bactrim DS 800 mg-160 mg tablet RxNorm: 972292 1 Tablet(s) PO BID 0 08/07/2017 08/13/2017 Inactive metronidazole 500 mg tablet RxNorm: 463463 1 Tablet(s) PO BID 08/0708/13/2017 Inactive diltiazem ER 360 mg capsule,24 hr,extended release RxNorm: 8 85908 1 Capsule(s) PO QHS replaces 300mg dose 08/04/2017 01/30/2018 Inactive fenofibrate micronized 134 mg capsule RxNorm: 507880 1 Capsule( s) PO QD 07/21/2017 01/30/2018 Inactive Zocor 40 mg tablet RxNorm: 406023 1 Tablet(s) PO QHS 07/21/201705/10 Inactive GB duloxetine 60 mg capsule,delayed release RxNorm: 351228 Capsule(s) TAKE ONE CAPSULE BY MOUTH ONCE DAILY 06/24/2017 09/24/2017 Inactive Cleocin HCl 300 mg capsule RxNorm: 409552 2 Capsule(s) PO BID 06/0206/08/2017 Inactive acyclovir 800 mg tablet RxNorm: 130617 1 Tablet(s) PO 5x day 201706/08/2017 Inactive diltiazem ER 300 mg capsule,24 hr,extended release RxNorm: 8 78830 1 Capsule(s) PO QHS replaces 240mg dose 05/05/2017 08/03/2017 Inactive ipratropium-albuterol 0.5 mg-3 mg(2.5 mg base)/3 mL ne bulization soln RxNorm: 6524125 1 Unit Dose INH Q4H as needed 05/05/2017 01/04/2019 Inactive metformin ER 1,000 mg tablet,extended release 24hr RxNorm: 1 175766 1 Tablet(s) PO BID 04/28/2017 11/17/2017 Inactive [SAVINGS FOR NON -COVERED DRUGS -- BIN:810606, PCN: ASPROD1, Group: XXXXX, ID# [id number], Questions: . THIS IS NOT INSURANCE.] diltiazem ER (XR/XT) 240 mg capsule,extended release 2 4 hr, controlled RxNorm: 311471 TAKE ONE CAPSULE BY MOUTH EVERY DAY 04/15/2017 05/04/2017 Inact avani prednisone 20 mg tablet RxNorm: 654919 1 Tablet(s) PO QD 04/10/2017 1 06/14/2016 Inactive Breo Ellipta 200 mcg-25 mcg/dose powder for inhalation RxNor m: 6155619 1 Puff(s) INH QD 04/10/2017 02/09/2018 Inactive Breo Ellipta 200 mcg-25 mcg/dose powder for inhalation RxNor m: 3871638 1 Puff(s) INH QD 04/10/2017 04/09/2017 Inactive Levaquin 500 mg tablet RxNorm: 858959 1 Tablet(s) PO QD 04/10/2017 Inactive metoprolol succinate ER 100 mg tablet,extended release 24 hr RxNorm: 647422 TAKE ONE TABLET BY MOUTH TWICE A DAY 03/24/2017 12/18/2017 Inactive fenofibrate micronized 134 mg capsule RxNorm: 656081 1 Capsule( s) PO QD 01/16/2017 07/21/2017 Inactive Benicar HCT 40 mg-25 mg tablet RxNorm: 543059 1 Tablet(s) PO QD 11/17/2017 Inactive [SAVINGS FOR NON-COVERED JESU GS -- BIN:908366, PCN: ASPROD1, Group: XXXXX, ID# [id number], Questions: . THIS IS NOT INSURANCE.] metoprolol succinate ER 100 mg tablet,extended release 24 hr RxNorm: 944803 1 Tablet(s) PO BID 10/16/2016 03/23/2017 Inactive diltiazem ER (XR/XT) 240 mg capsule,extended release 2 4 hr, controlled RxNorm: 002447 1 Capsule(s) PO QD 10/16/2016 04/13/2017 Inactive [SAVINGS FOR NON- COVERED DRUGS -- BIN:671106, PCN: ASPROD1, Group: XXXXX, ID# [id number], Questions: . THIS IS NOT INSURANCE.] metformin ER 1,000 mg tablet,extended release 24hr RxNorm: 8 22350 1 Tablet(s) PO BID 10/16/2016 04/28/2017 Inactive [SAVINGS FOR NON -COVERED DRUGS -- BIN:534122, PCN: ASPROD1, Group: XXXXX, ID# [id number], Questions: . THIS IS NOT INSURANCE.] Zocor 40 mg tablet RxNorm: 787264 1 Tablet(s) PO QHS 10/16/201607/21 Inactive GB Singulair 10 mg tablet RxNorm: 331086 Tablet(s) 1 TABLET(S) PO QHS 08/27/2016 09/02/2018 Inactive prednisone 20 mg tablet RxNorm: 452501 1 Tablet(s) PO QD 08/27/2016 0 08/31/2016 Inactive ipratropium-albuterol 0.5 mg-3 mg(2.5 mg base)/3 mL ne bulization soln RxNorm: 4912214 1 Unit Dose INH Q4H as needed 08/27/2016 05/04/2017 Inactive metoprolol succinate ER 100 mg tablet,extended release 24 hr RxNorm: 928555 TAKE ONE TABLET BY MOUTH TWICE A DAY 08/05/2016 10/16/2016 Inactive duloxetine 60 mg capsule,delayed release RxNorm: 202194 TAKE ONE CAPSULE BY MOUTH ONCE DAILY 08/05/2016 06/24/2017 Inactive prednisone 20 mg tablet RxNorm: 871502 1 Tablet(s) PO QD 06/14/2016 0 06/18/2016 Inactive ipratropium-albuterol 0.5 mg-3 mg(2.5 mg base)/3 mL ne bulization soln RxNorm: 7049389 1 Unit Dose INH Q4H as needed 06/13/2016 08/26/2016 Inactive Levaquin 500 mg tablet RxNorm: 712970 1 Tablet(s) PO QD 06/13/2016 Inactive metoprolol succinate ER 100 mg tablet,extended release 24 hr RxNorm: 652741 1 Tablet(s) PO BID replaces 50mg dose 05/14/2016 07/12/2016 Inactive metoprolol succinate ER 50 mg tablet,extended release 24 hr RxNorm: 980366 1 Tablet(s) PO BID 04/29/2016 05/13/2016 Inactive prednisone 20 mg tablet RxNorm: 743407 1 Tablet(s) PO BID 04/22/2016 04/21/2016 Inactive prednisone 20 mg tablet RxNorm: 710074 1 Tablet(s) PO BID 04/22/2016 04/28/2016 Inactive Singulair 10 mg tablet RxNorm: 847990 Tablet(s) 1 TABLET(S) PO QHS 04/01/2016 08/26/2016 Inactive metoprolol succinate ER 25 mg tablet,extended release 24 hr RxNorm: 615835 1 Tablet(s) PO QHS for blood pressure 04/01/2016 05/13/2016 Inactive fenofibrate micronized 134 mg capsule RxNorm: 776257 TA KE ONE CAPSULE BY MOUTH DAILY 01/25/2016 01/16/2017 Inactive duloxetine 60 mg capsule,delayed release RxNorm: 203912 TAKE ONE CAPSULE BY MOUTH ONCE DAILY 01/25/2016 08/04/2016 Inactive Zocor 40 mg tablet RxNorm: 398477 TAKE ONE TABLET BY MOUTH AT B EDTIME 11/13/2015 10/16/2016 Inactive GB metformin ER 1,000 mg tablet,extended release 24hr RxNorm: 8 44226 1 Tablet(s) PO BID 10/26/2015 10/16/2016 Inactive [SAVINGS FOR NON -COVERED DRUGS -- BIN:245800, PCN: ASPROD1, Group: XXXXX, ID# [id number], Questions: . THIS IS NOT INSURANCE.] Benicar HCT 40 mg-25 mg tablet RxNorm: 509396 1 Tablet(s) PO QD 06/201511/11/2016 Inactive [SAVINGS FOR NON-COVERED JESU GS -- BIN:635363, PCN: ASPROD1, Group: XXXXX, ID# [id number], Questions: . THIS IS NOT INSURANCE.] diltiazem ER (XR/XT) 240 mg capsule,extended release,control led RxNorm: 583189 1 Capsule(s) PO QD 10/26/2015 10/15/2016 Inactive [SAVINGS FOR NO N-COVERED DRUGS -- BIN:460503, PCN: ASPROD1, Group: XXXXX, ID# [id number], Questions: . THIS IS NOT INSURANCE.] Singulair 10 mg tablet RxNorm: 898149 1 TABLET(S) PO QHS 09/18/2015 1 05/31/2015 Inactive Viagra 100 mg tablet RxNorm: 186705 1 Tablet(s) PO as needed 201511/23/2018 Inactive Singulair 10 mg tablet RxNorm: 650037 1 Tablet(s) PO QHS 08/16/2015 0 08/15/2015 Inactive Singulair 10 mg tablet RxNorm: 850239 1 Tablet(s) PO QHS 08/16/2015 0 09/14/2015 Inactive duloxetine 60 mg capsule,delayed release RxNorm: 781205 1 Capsule(s) PO QD replaces fluoxetine 08/14/2015 01/24/2016 Inactive ipratropium-albuterol 0.5 mg-3 mg(2.5 mg base)/3 mL ne bulization soln RxNorm: 1856470 1 Unit Dose INH Q4H as needed 08/14/2015 06/12/2016 Inactive prednisone 20 mg tablet RxNorm: 524072 Take 3 tabs PO o nce daily x 3 days, then 2 tabs PO once daily x 3 days and then 1 tab PO once daily x 3 days 08/09/2015 08/13/2015 Inactive Symbicort 160 mcg-4.5 mcg/actuation HFA aerosol inhaler RxNo rm: 5341428 2 Puff(s) INH BID 08/09/2015 08/13/2015 Inactive Zocor 40 mg tablet RxNorm: 864845 1 Tablet(s) PO QHS 05/23/201511/11 Inactive [AttnRPh: Saving apply/adjudicate RxGRP: SG20 RxBIN:[id number] RxPCN:HT ID#:[id number]] Benicar HCT 40 mg-25 mg tablet RxNorm: 164845 1 Tablet(s) PO QD 10/26/2015 Inactive [SAVINGS FOR NON-COVERED JESU GS -- BIN:196435, PCN: ASPROD1, Group: XXXXX, ID# [id number], Questions: . THIS IS NOT INSURANCE.] diltiazem ER (XR/XT) 240 mg capsule,extended release,control led RxNorm: 159316 1 Capsule(s) PO QD 04/24/2015 10/20/2015 Inactive [SAVINGS FOR NO N-COVERED DRUGS -- BIN:840194, PCN: ASPROD1, Group: XXXXX, ID# [id number], Questions: . THIS IS NOT INSURANCE.] fluoxetine 40 mg capsule RxNorm: 458842 1 Capsule(s) PO QD 04/24/20 15 08/13/2015 Inactive [SAVINGS FOR NON-COVERED JESU GS -- BIN:501764, PCN: ASPROD1, Group: XXXXX, ID# [id number], Questions: . THIS IS NOT INSURANCE.] Zocor 40 mg tablet RxNorm: 586905 TABLET(S) 1 TABLET(S) PO QHS 01/2505/23/2015 Inactive [AttnRPh: Saving apply/adjud icate RxGRP:SG20 RxBIN:[id number] RxPCN: ID#:[id number]] metformin ER 1,000 mg tablet,extended release 24hr RxNorm: 8 94396 1 TABLET(S) PO BID 01/29/2015 10/26/2015 Inactive [SAVINGS FOR NON -COVERED DRUGS -- BIN:919786, PCN: ASPROD1, Group: XXXXX, ID# [id number], Questions: . THIS IS NOT INSURANCE.] fenofibrate micronized 134 mg capsule RxNorm: 114261 1 CAPSULE( S) PO QD 01/23/2015 01/17/2016 Inactive fenofibrate micronized 134 mg capsule RxNorm: 640383 1 Capsule( s) PO QD 11/07/2014 01/22/2015 Inactive diltiazem ER (XR/XT) 240 mg capsule,extended release,control led RxNorm: 523812 1 Capsule(s) PO QD 10/24/2014 04/24/2015 Inactive [SAVINGS FOR NO N-COVERED DRUGS -- BIN:894180, PCN: ASPROD1, Group: XXXXX, ID# [id number], Questions: . THIS IS NOT INSURANCE.] Benicar HCT 40 mg-25 mg tablet RxNorm: 978030 1 Tablet(s) PO QD 05/201404/24/2015 Inactive [SAVINGS FOR NON-COVERED JESU GS -- BIN:179739, PCN: ASPROD1, Group: XXXXX, ID# [id number], Questions: . THIS IS NOT INSURANCE.] fluoxetine 40 mg capsule RxNorm: 264780 1 Capsule(s) PO QD 10/25/19 15 04/24/2015 Inactive [SAVINGS FOR NON-COVERED JESU GS -- BIN:332681, PCN: ASPROD1, Group: XXXXX, ID# [id number], Questions: . THIS IS NOT INSURANCE.] azithromycin 500 mg tablet RxNorm: 984248 1 Tablet(s) PO QD 015 09/27/2014 Inactive [SAVINGS FOR NON-COVERED JESU GS -- BIN:309890, PCN: ASPROD1, Group: XXXXX, ID# XXXXXXX, Questions: . THIS IS NOT INSURANCE.] albuterol sulfate 2.5 mg/3 mL (0.083 %) solution for n ebulization RxNorm: 013596 3 Milliliter(s) INH ONE VIAL VIA NEBULIZER EVERY 4 HOURS 015 11/19/2014 Inactive [AttnRPh: Saving apply/adjudicate RxGRP: SG20 RxBIN:[id number] RxPCN: ID#:[id number]] Zocor 40 mg tablet RxNorm: 623342 TABLET(S) 1 TABLET(S ) PO QHS 1 TABLET(S) PO QHS 09/04/2014 02/21/2015 Inactive [AttnRPh: Saving apply/adjudicate RxGRP:SG20 RxBIN:[id number] RxPCN: ID#:[id number]] metformin ER 1,000 mg tablet,extended release 24hr RxNorm: 8 53070 1 Tablet(s) PO BID 08/04/2014 01/28/2015 Inactive [SAVINGS FOR NON -COVERED DRUGS -- BIN:470409, PCN: ASPROD1, Group: XXXXX, ID# XXXXXXX, Questions: . THIS IS NOT INSURANCE.] Bromfed DM 2 mg-30 mg-10 mg/5 mL syrup RxNorm: 4556540 1 -2 Teaspoon(s) PO Q4H as needed for cough 06/10/2014 06/19/2014 Inactive [SAVINGS FOR UN INSURED PATIENTS -- BIN:259136, PCN: ASPROD1, Group: AME08, ID# [id number], Process claim through [employer], for questions: . THIS IS NOT INSURANCE.] Augmentin 875 mg-125 mg tablet RxNorm: 206241 1 Tablet(s) PO Q12H 0 06/10/2014 06/19/2014 Inactive [AttnRPh: Saving apply/adjud icate RxGRP:SG20 RxBIN:[id number] RxPCN:HT ID#:[id number]] Zocor 40 mg tablet RxNorm: 376901 Tablet(s) 1 TABLET(S ) PO QHS 1 TABLET(S) PO QHS 05/25/2014 08/22/2014 Inactive [AttnRPh: Saving apply/adjudicate RxGRP:SG20 RxBIN:[id number] RxPCN:HT ID#:[id number]] fluoxetine 40 mg capsule RxNorm: 607603 1 Capsule(s) PO QD 04/29/20 14 10/24/2014 Inactive [AttnRPh: Saving apply/adjud icate RxGRP:SG20 RxBIN:[id number] RxPCN:HT ID#:[id number]] diltiazem ER (XR/XT) 240 mg capsule,extended release,control led RxNorm: 906159 1 Capsule(s) PO QD 04/29/2014 10/24/2014 Inactive [AttnRPh: Shahzad g apply/adjudicate RxGRP:SG20 RxBIN:[id number] RxPCN:HT ID#:[id number]] Benicar HCT 40 mg-25 mg tablet RxNorm: 624207 1 Tablet(s) PO QD 09/201310/24/2014 Inactive [AttnRPh: Saving apply/adjud icate RxGRP:SG20 RxBIN:[id number] RxPCN:HT ID#:[id number]] Zocor 40 mg tablet RxNorm: 644388 1 TABLET(S) PO QHS 1 TABLET(S ) PO QHS 03/07/2014 05/25/2014 Inactive [AttnRPh: Saving chelsie ly/adjudicate RxGRP:SG20 RxBIN:[id number] RxPCN:HT ID#:[id number]] Zocor 40 mg tablet RxNorm: 277708 1 Tablet(s) PO QHS 1 TABLET(S ) PO QHS 12/06/2013 03/05/2014 Inactive [AttnRPh: Saving chelsie ly/adjudicate RxGRP:SG20 RxBIN:[id number] RxPCN:HT ID#:[id number]] diltiazem ER (XR/XT) 240 mg capsule,extended release,control led RxNorm: 557250 1 Capsule(s) PO QD 10/25/2013 04/22/2014 Inactive [AttnRPh: Savin g apply/adjudicate RxGRP:SG20 RxBIN:[id number] RxPCN:HT ID#:[id number]] fluoxetine 40 mg capsule RxNorm: 499482 1 Capsule(s) PO QD 10/26/19 14 04/22/2014 Inactive [AttnRPh: Saving apply/adjud icate RxGRP:SG20 RxBIN:[id number] RxPCN:HT ID#:[id number]] Zocor 40 mg tablet RxNorm: 391564 1 Tablet(s) PO QHS 1 TABLET(S ) PO QHS 09/13/2013 12/06/2013 Inactive metformin ER 1,000 mg tablet,extended release 24hr RxNorm: 8 53719 Tablet(s) PO TAKE 1 TABLET BY MOUTH TWICE DAILY (REPLACES 500MG DOSE) 07/26/201303/2015 Inactive diltiazem ER (XR/XT) 240 mg capsule,extended release,control led RxNorm: 539680 1 Capsule(s) PO QD 05/03/2013 10/25/2013 Inactive fluoxetine 40 mg capsule RxNorm: 886626 1 Capsule(s) PO QD 05/03/20 13 10/25/2013 Inactive Benicar HCT 40 mg-25 mg tablet RxNorm: 637134 1 Tablet(s) PO QD 01/201304/29/2014 Inactive Zocor 40 mg tablet RxNorm: 769167 1 Tablet(s) PO QHS 12/10/201209/13 Inactive fluoxetine 40 mg capsule RxNorm: 147294 1 Capsule(s) PO QD 11/10/19 13 05/03/2013 Inactive diltiazem ER (XR/XT) 240 mg capsule,extended release,control led RxNorm: 880218 1 Capsule(s) PO QD 11/09/2012 05/03/2013 Inactive Benicar HCT 40 mg-25 mg tablet RxNorm: 289340 1 Tablet(s) PO QD 05/03/2013 Inactive metformin ER 1,000 mg tablet,extended release 24hr RxNorm: 8 54762 Tablet(s) PO TAKE 1 TABLET BY MOUTH TWICE DAILY (REPLACES 500MG DOSE) 08/05/201206/2013 Inactive Zocor 40 mg tablet RxNorm: 959402 1 Tablet(s) PO QHS 06/15/201212/09 Inactive fluoxetine 40 mg capsule RxNorm: 597913 1 Capsule(s) PO QD 05/15/2011/08/2012 Inactive Neurontin 600 mg Tab RxNorm: 194908 1 Tablet(s) PO QHS 12/03/2011 Inactive metformin ER 1,000 mg tablet,extended release 24hr RxNorm: 8 21512 1 Tablet(s) PO BID replaces 500mg dose 12/03/2011 07/26/2013 Inactive Zocor 40 mg tablet RxNorm: 392975 1 Tablet(s) PO QHS 12/03/201106/15 Inactive fluoxetine 20 mg capsule RxNorm: 721553 1 Capsule(s) PO QD 12/03/19 12 05/24/2012 Inactive diltiazem ER (XR/XT) 240 mg capsule,extended release,control led RxNorm: 407480 1 Capsule(s) PO QD 11/15/2011 11/09/2012 Inactive Benicar HCT 40 mg-25 mg tablet RxNorm: 194763 1 Tablet(s) PO QD 02/16/2012 Inactive metformin ER 500 mg 24 hr Tab RxNorm: 109262 1 Tablet(s) PO BID 12/02/2011 Inactive Zocor 40 mg Tab RxNorm: 292635 1 Tablet(s) PO QHS 05/30/2011 11/25/19 12 Inactive fluoxetine 20 mg Cap RxNorm: 123350 1 Capsule(s) PO QD 05/28/2011 Inactive Neurontin 600 mg Tab RxNorm: 162024 1 Tablet(s) PO QHS 05/28/2011 Inactive Neurontin 600 mg Tab RxNorm: 767775 1 Tablet(s) PO QHS 02/22/201106/2011 Inactive Neurontin 600 mg Tab RxNorm: 917194 1 Tablet(s) PO QHS 01/14/2011 Inactive Neurontin 300 mg Cap RxNorm: 525396 1 Capsule(s) PO QHS 01/14/2011 Inactive Neurontin 600 mg Tab RxNorm: 797927 1 Tablet(s) PO QHS 01/14/2011 Inactive Medrol (Vipul) 4 mg Tabs in a Dose Pack RxNorm: 766575 Tablet(s) PO 0 01/02/2011 08/28/2011 Inactive as directed fluoxetine 20 mg Cap RxNorm: 658731 1 Capsule(s) PO QD 12/10/201006/2011 Inactive Zocor 40 mg Tab RxNorm: 260959 1 Tablet(s) PO QHS 12/03/2010 05/29/19 12 Inactive Neurontin 300 mg Cap RxNorm: 904992 1 Capsule(s) PO QHS 12/03/2010 Inactive Septra DS 800 mg-160 mg Tab RxNorm: 220227 1 Tablet(s) PO BID 11/2912/08/2010 Inactive diltiazem ER (XR/XT) 240 mg Continuous Release Cap RxNorm: 8 07227 1 Capsule(s) PO QD 11/20/2010 11/15/2011 Inactive Neurontin 300 mg Cap RxNorm: 145592 1 Capsule(s) PO QHS 11/06/2010 Inactive Neurontin 300 mg Cap RxNorm: 899522 1 Capsule(s) PO QHS 11/06/2010 Inactive Celebrex 200 mg Cap RxNorm: 619521 1 Capsule(s) PO BID 10/24/2010 Inactive fluoxetine 20 mg Cap RxNorm: 929001 1 Capsule(s) PO QD 06/07/201003/2011 Inactive Zocor 40 mg Tab RxNorm: 859690 1 Tablet(s) PO QHS 06/05/2010 12/02/19 11 Inactive Benicar HCT 40 mg-25 mg Tab RxNorm: 740324 1 Tablet(s) PO QD 200908/21/2011 Inactive Diltiazem 240 mg Continuous Release Cap RxNorm: 256682 1 Capsul e(s) PO QD 11/09/2009 09/02/2018 Inactive Avelox 400 mg Tab RxNorm: 450431 1 Tablet(s) PO QD 08/22/2009 010 Inactive ProAir HFA 90 mcg/actuation aerosol inhaler RxNorm: 452066 2 Puff(s) INH Q4H as needed No Start Date Active tramadol 50 mg tablet RxNorm: 157474 1-2 Tablet(s) PO TID as ne eded for pain No Start Date Active Tylenol Arthritis 650 mg Tab RxNorm: 8152710 2 Tablet(s) PO QD No Sta rt Date Active Celebrex 200 mg Cap RxNorm: 533406 1 Capsule(s) PO BID No Start Date 08/08/2015 Inactive Medrol (Vipul) 4 mg Tabs in a Dose Pack RxNorm: 737461 Tablet(s) PO N o Start Date 01/01/2011 Inactive as directed Promethazine-DM 6.25 mg-15 mg/5 mL Syrup RxNorm: 036973 1-2 Teaspoon(s) PO Q4H prn cough No Start Date 08/28/2011 Inactive Claritin 10 mg tablet RxNorm: 488538 1 Tablet(s) PO QD No Start Date 08/08/2015 Inactive [id number] Oral RxNorm: Oral No Start Da te 03/28/2019 Inactive Breo Ellipta 200 mcg-25 mcg/dose powder for inhalation RxNor m: 7363571 1 Puff(s) INH QD No Start Date 04/09/2017 Inactive metformin 500 mg Tab RxNorm: 354363 1 Tablet(s) PO QD No Start Date 0 08/17/2011 Inactive Diltiazem 240 mg Continuous Release Cap RxNorm: 647623 1 Capsul e(s) PO BID No Start Date 11/08/2009 Inactive fluoxetine 20 mg Cap RxNorm: 879187 1 Capsule(s) PO QD No Start Date 06/07/2010 Inactive Multivitamin & Mineral Formula Oral RxNorm: Oral No Start Da te 03/28/2019 Inactive Medrol (Vipul) 4 mg tablets in a dose pack RxNorm: 699183 Tablet(s) PO as directed No Start Date 05/28/2012 Inactive Fish Oil 1,000 mg Cap RxNorm: 1 Capsule(s) PO QD No Start Date 07/2018 Inactive Nexium 40 mg Cap RxNorm: 039999 1 Capsule(s) PO QD No Start Date 07/24 Inactive fluticasone 50 mcg/actuation nasal spray,suspension RxNorm: 4134261 2 [place] NASAL QD to each nostril No Start Date 08/03/2017 Inactive Viagra 100 mg tablet RxNorm: 504839 1 Tablet(s) PO as needed No Sta rt Date 09/17/2015 Inactive prednisone 20 mg tablet RxNorm: 704257 1 Tablet(s) PO B ID for 4 days then 1 po daily for 4 days No Start Date 11/23/2018 Inactive Benicar HCT 40 mg-25 mg Tab RxNorm: 724094 1 Tablet(s) PO QD No Sta rt [...] Date S ervice Location MICROALBUMIN URINE RANDOM 54077 MICRL MG/L 5.8 MG/L 03/2011 Unknown MICROALBUMIN URINE RANDOM 75371 XM.ALB/CRE 5.2 MG/GCR Unknown MICROALBUMIN URINE RANDOM 51888 CREAT MG/D 111 MG/DL 03/2011 Unknown MICROALBUMIN URINE RANDOM 69793 CRE/100 1.11 G/L 12/24 Unknown Procedures Procedure Codes Date FLU VACC PRSV FREE INC ANTIG 65 AND OLDER CPT-4: 43285 03/04/2019 ADMIN PNEUMOCOCCAL VACCINE CPT-4: G0009 03/04/2019 ADMIN INFLUENZA VIRUS VAC CPT-4: G0008 03/04/2019 FLU VACC PRSV FREE INC ANTIG 65 AND OLDER CPT-4: 08265 03/04/2019 PNEUMOCOCCAL VACC 23 [facility] IM CPT-4: 96465 03/04/2019 THER/PROPH/DIAG INJ SC/IM CPT-4: 90160 08/11/2018 TRIAMCINOLONE ACET INJ NOS CPT-4: J3301 08/11/2018 DEXAMETHASONE SODIUM PHOS CPT-4: J1100 08/11/2018 THER/PROPH/DIAG INJ SC/IM CPT-4: 84836 07/16/2018 METHYLPREDNISOLONE INJECTION CPT-4: J2930 07/16/2018 INFLUENZA ASSAY W/OPTIC CPT-4: 45214 07/16/2018 THER/PROPH/DIAG INJ SC/IM CPT-4: 74596 07/13/2018 TRIAMCINOLONE ACET INJ NOS CPT-4: J3301 07/13/2018 THER/PROPH/DIAG INJ SC/IM CPT-4: 10988 05/04/2018 METHYLPREDNISOLONE INJECTION CPT-4: J2930 05/04/2018 FLU VACC PRSV FREE INC ANTIG 65 AND OLDER CPT-4: 65088 02/10/2018 PNEUMOCOCCAL VACC 13 [facility] IM CPT-4: 86226 02/10/2018 ADMIN INFLUENZA VIRUS VAC CPT-4: G0008 02/10/2018 ADMIN PNEUMOCOCCAL VACCINE CPT-4: G0009 02/10/2018 THER/PROPH/DIAG INJ SC/IM CPT-4: 52575 09/09/2017 TRIAMCINOLONE ACET INJ NOS CPT-4: J3301 09/09/2017 ALBUTEROL NON-COMP UNIT CPT-4: J7613 04/10/2017 AIRWAY INHALATION TREATMENT CPT-4: 11245 04/10/2017 PRESCRIP TRANSMIT VIA ERX SY CPT-4: G8553 04/10/2017 FLU VACC PRSV FREE INC ANTIG 65 AND OLDER CPT-4: 22979 03/28/2017 ADMIN INFLUENZA VIRUS VAC CPT-4: G0008 03/28/2017 PRESCRIP TRANSMIT VIA ERX SY CPT-4: G8553 08/27/2016 PRESCRIP TRANSMIT VIA ERX SY CPT-4: G8553 06/14/2016 ALBUTEROL NON-COMP UNIT CPT-4: J7613 06/13/2016 AIRWAY INHALATION TREATMENT CPT-4: 44231 06/13/2016 PRESCRIP TRANSMIT VIA ERX SY CPT-4: [...] CPT-4: G8553 11/07/2014 THER/PROPH/DIAG INJ SC/IM CPT-4: 71158 09/21/2014 METHYLPREDNISOLONE INJECTION CPT-4: J2930 09/21/2014 PRESCRIP TRANSMIT VIA ERX SY CPT-4: G8553 09/21/2014 PRESCRIP TRANSMIT VIA ERX SY CPT-4: G8553 06/10/2014 URINALYSIS NONAUTO W/O SCOPE CPT-4: 02800 06/01/2012 PRESCRIP TRANSMIT VIA ERX SY CPT-4: G8553 05/25/2012 PRESCRIP TRANSMIT VIA ERX SY CPT-4: G8553 12/03/2011 CUR TOBACCO NON-USER CPT-4: G8457 05/30/2011 PRESCRIP TRANSMIT VIA ERX SY CPT-4: G8553 05/30/2011 URINALYSIS NONAUTO W/O SCOPE CPT-4: 18189 01/01/2011 URINE CULTURE/ COLONY COUNT CPT-4: 02623 01/01/2011 CUR TOBACCO NON-USER CPT-4: G8457 01/01/2011 [...] 1: 114/68 Code: 8480-6 BMI: 43.5 Code: 30443-9 Heart Rate 1: 52 bpm Height: 6'1" [...] 1: 136/72 Code: 8480-6 BMI: 42.7 Code: 14855-6 Heart Rate 1: 60 bpm Height: 6'1" Respiratory Rate: 22 bpm SpO2: 95% Tempera ture: 37.1 (C) / 98.7 (F) Weight: 324 lbs 02/10/2018 Blood Pressure 1: 146/78 Code: 8480-6 BMI: 42.4 Code: 44121-2 Heart Rate 1: 64 bpm Height: 6'1" Respiratory Rate: 22 bpm SpO2: 95% Tempera ture: 36.5 (C) / 97.7 (F) Weight: 321 lbs 11/05/2017 Blood Pressure 1: 128/84 Code: 8480-6 BMI: 42.9 Code: 04761-2 Heart Rate 1: 52 bpm Height: 6'1" Respiratory Rate: 22 bpm SpO2: 95% Tempera ture: 36.3 (C) / 97.3 (F) Weight: 325 lbs 09/09/2017 Blood Pressure 1: 162/90 Code: 8480-6 BMI: 42.5 Code: 68601-6 Heart Rate 1: 60 bpm Height: 6'1" Respiratory Rate: 24 bpm SpO2: 95% Tempera ture: 36.4 (C) / 97.6 (F) Weight: 322 lbs 08/07/2017 Blood Pressure 1: 152/90 Code: 8480-6 BMI: 42.2 Code: 08816-9 Heart Rate 1: 60 bpm Height: 6'1" Respiratory Rate: 26 bpm SpO2: 94% Tempera ture: 36.6 (C) / 97.8 (F) Weight: 320 lbs 08/04/2017 Blood Pressure 1: 150/86 Code: 8480-6 BMI: 42.7 Code: 10927-1 Heart Rate 1: 64 bpm Height: 6'1" Respiratory Rate: 20 bpm SpO2: 94% Tempera ture: 36.3 (C) / 97.3 (F) Weight: 324 lbs 06/04/2017 Blood Pressure 1: 164/90 Code: 8480-6 Heart Rate 1: 60 bpm Respiratory Rate: 24 bpm SpO2: 94% Temperature: 36.8 (C) / 98.3 (F) 06/02/2017 Blood Pressure 1: 162/80 Code: 8480-6 BMI: 42.9 Code: 39661-3 Heart Rate 1: 66 bpm Height: 6'1" Respiratory Rate: 22 bpm SpO2: 98% Tempera ture: 36.6 (C) / 97.8 (F) Weight: 325 lbs 05/05/2017 Blood Pressure 1: 164/94 Code: 8480-6 BMI: 41.4 Code: 12417-0 Heart Rate 1: 64 bpm Height: 6'1" Respiratory Rate: 22 bpm SpO2: 95% Tempera ture: 36.4 (C) / 97.5 (F) Weight: 314 lbs 04/10/2017 Blood Pressure 1: 136/78 Code: 8480-6 BMI: 42.0 Code: 41619-9 Heart Rate 1: 76 bpm Height: 6'1" Respiratory Rate: 24 bpm SpO2: 92% Tempera ture: 35.9 (C) / 96.7 (F) Weight: 318 lbs 02/03/2017 Blood Pressure 1: 134/82 Code: 8480-6 BMI: 41.7 Code: 83763-0 Heart Rate 1: 72 bpm Height: 6'1" Respiratory Rate: 24 bpm SpO2: 95% Tempera ture: 36.1 (C) / 97.0 (F) Weight: 316 lbs 10/30/2016 Blood Pressure 1: 126/74 Code: 8480-6 BMI: 41.3 Code: 80525-0 Heart Rate 1: 68 bpm Height: 6'1" Respiratory Rate: 20 bpm Temperature: 37 .1 (C) / 98.8 (F) Weight: 313 lbs 08/30/2016 Blood Pressure 1: 146/80 Code: 8480-6 BMI: 41.7 Code: 53476-7 Heart Rate 1: 64 bpm Height: 6'1" Respiratory Rate: 24 bpm SpO2: 94% Tempera ture: 36.6 (C) / 97.8 (F) Weight: 316 lbs 08/27/2016 Blood Pressure 1: 124/78 Code: 8480-6 Heart Rate 1: 66 bpm Height: 6'2" Respiratory Rate: 18 bpm SpO2: 94% Temperature: 36.6 (C) / 97.8 (F) Weight: 07/02/2016 Blood Pressure 1: 126/78 Code: 8480-6 BMI: 41.4 Code: 08856-4 Heart Rate 1: 68 bpm Height: 6'1" Respiratory Rate: 24 bpm SpO2: 94% Tempera ture: 36.6 (C) / 97.8 (F) Weight: 314 lbs 06/14/2016 Blood Pressure 1: 146/82 Code: 8480-6 Heart Rate 1: 80 bpm Respiratory Rate: 20 bpm SpO2: 95% Temperature: 37.3 (C) / 99.2 (F) 06/13/2016 Blood Pressure 1: 146/84 Code: 8480-6 BMI: 40.5 Code: 43269-6 Heart Rate 1: 66 bpm Height: 6'1" Respiratory Rate: 28 bpm SpO2: 93% Tempera ture: 35.8 (C) / 96.4 (F) Weight: 307 lbs 05/14/2016 Blood Pressure 1: 146/90 Code: 8480-6 BMI: 41.2 Code: 54865-8 Heart Rate 1: 68 bpm Height: 6'1" Respiratory Rate: 26 bpm Temperature: 36 .8 (C) / 98.2 (F) Weight: 312 lbs 04/29/2016 Blood Pressure 1: 152/90 Code: 8480-6 BMI: 41.0 Code: 05372-6 Heart Rate 1: 68 bpm Height: 6'1" Respiratory Rate: 26 bpm SpO2: 94% Tempera ture: 36.1 (C) / 96.9 (F) Weight: 311 lbs 04/22/2016 Blood Pressure 1: 152/94 Code: 8480-6 BMI: 40.9 Code: 92630-7 Heart Rate 1: 68 bpm Height: 6'1" Respiratory Rate: 24 bpm SpO2: 94% Tempera ture: 36.2 (C) / 97.2 (F) Weight: 310 lbs 04/01/2016 Blood Pressure 1: 156/78 Code: 8480-6 BMI: 40.6 Code: 21166-7 Heart Rate 1: 84 bpm Height: 6'1" Respiratory Rate: 22 bpm SpO2: 95% Tempera ture: 37.1 (C) / 98.7 (F) Weight: 308 lbs 11/30/2015 Blood Pressure 1: 142/80 Code: 8480-6 BMI: 40.5 Code: 94989-8 Heart Rate 1: 88 bpm Height: 6'1" Respiratory Rate: 22 bpm Temperature: 36 .2 (C) / 97.2 (F) Weight: 307 lbs 08/29/2015 Blood Pressure 1: 132/70 Code: 8480-6 BMI: 40.0 Code: 78416-3 Heart Rate 1: 76 bpm Height: 6'1" Respiratory Rate: 24 bpm SpO2: 96% Tempera ture: 36.7 (C) / 98.0 (F) Weight: 303 lbs 08/14/2015 Blood Pressure 1: 126/80 Code: 8480-6 BMI: 39.4 Code: 64425-7 Heart Rate 1: 92 bpm Height: 6'1" Respiratory Rate: 24 bpm SpO2: 94% Tempera ture: 37.8 (C) / 100.0 (F) Weight: 299 lbs 08/09/2015 Blood Pressure 1: 146/82 Code: 8480-6 Heart Rate 1: 82 bpm Respiratory Rate: 22 bpm SpO2: 93% Temperature: 35.9 (C) / 96.6 (F) We ight: 310 lbs 05/22/2015 Blood Pressure 1: 156/76 Code: 8480-6 BMI: 41.0 Code: 07304-1 Heart Rate 1: 100 bpm Height: 6'1" Respiratory Rate: 22 bpm Temperature: 37 .2 (C) / 98.9 (F) Weight: 311 lbs 02/13/2015 Blood Pressure 1: 166/90 Code: 8480-6 BMI: 41.2 Code: 62803-5 Heart Rate 1: 72 bpm Height: 6'1" Respiratory Rate: 24 bpm SpO2: 93% Tempera ture: 36.9 (C) / 98.5 (F) Weight: 312 lbs 11/07/2014 Blood Pressure 1: 134/70 Code: 8480-6 BMI: 40.5 Code: 50575-3 Heart Rate 1: 76 bpm Height: 6'1" Respiratory Rate: 24 bpm Temperature: 36 .9 (C) / 98.4 (F) Weight: 307 lbs 10/04/2014 Blood Pressure 1: 144/86 Code: 8480-6 BMI: 40.1 Code: 17011-5 Heart Rate 1: 76 bpm Height: 6'1" Respiratory Rate: 28 bpm Temperature: 36 .6 (C) / 97.9 (F) Weight: 304 lbs 09/22/2014 Blood Pressure 1: 142/80 Code: 8480-6 BMI: 40.0 Code: 60661-3 Heart Rate 1: 80 bpm Height: 6'1" Respiratory Rate: 22 bpm SpO2: 96% Tempera ture: 36.6 (C) / 97.8 (F) Weight: 303 lbs 09/21/2014 Blood Pressure 1: 160/66 Code: 8480-6 BMI: 40.0 Code: 94918-0 Heart Rate 1: 90 bpm Height: 6'1" Respiratory Rate: 26 bpm SpO2: 94% Tempera ture: 35.7 (C) / 96.2 (F) Weight: 303 lbs 06/28/2014 Blood Pressure 1: 132/80 Code: 8480-6 BMI: 41.0 Code: 49589-8 Heart Rate 1: 64 bpm Height: 6' Respiratory Rate: 20 bpm Temperature: 36 .7 (C) / 98.0 (F) Weight: 302 lbs 06/10/2014 Blood Pressure 1: 152/70 Code: 8480-6 BMI: 41.1 Code: 06273-8 Heart Rate 1: 76 bpm Height: 6' Respiratory Rate: 20 bpm Temperature: 36 .6 (C) / 97.8 (F) Weight: 303 lbs 03/29/2014 Blood Pressure 1: 132/78 Code: 8480-6 BMI: 40.6 Code: 78665-3 Heart Rate 1: 84 bpm Height: 6' Respiratory Rate: 22 bpm Temperature: 37 .1 (C) / 98.8 (F) Weight: 299 lbs 11/30/2013 Blood Pressure 1: 136/84 Code: 8480-6 BMI: 39.2 Code: 17723-9 Heart Rate 1: 76 bpm Height: 6' Respiratory Rate: 20 bpm Temperature: 36 .8 (C) / 98.2 (F) Weight: 289 lbs 08/03/2013 Blood Pressure 1: 144/80 Code: 8480-6 Heart Rate 1: 86 bpm Respiratory Rate: 20 bpm Temperature: 36.6 (C) / 97.8 (F) Weight: 296 lbs 04/06/2013 Blood Pressure 1: 142/90 Code: 8480-6 BMI: 40.3 Code: 86439-0 Heart Rate 1: 88 bpm Height: 6' Respiratory Rate: 20 bpm Temperature: 36 .6 (C) / 97.8 (F) Weight: 297 lbs 12/01/2012 Blood Pressure 1: 124/78 Code: 8480-6 BMI: 38.7 Code: 45575-9 Heart Rate 1: 76 bpm Height: 6' Respiratory Rate: 20 bpm Temperature: 37 .2 (C) / 98.9 (F) Weight: 285 lbs 08/04/2012 Blood Pressure 1: 128/80 Code: 8480-6 BMI: 38.2 Code: 11011-7 Heart Rate 1: 76 bpm Height: 6' Respiratory Rate: 20 bpm Temperature: 37 .0 (C) / 98.6 (F) Weight: 282 lbs 05/29/2012 Blood Pressure 1: 138/78 Code: 8480-6 BMI: 36.6 Code: 20648-8 Heart Rate 1: 66 bpm Height: 6' Temperature: 36.7 (C) / 98.1 (F) Weight: 270 lbs 05/25/2012 Blood Pressure 1: 128/72 Code: 8480-6 BMI: 39.9 Code: 42768-6 Heart Rate 1: 74 bpm Height: 6' Temperature: 36.1 (C) / 97.0 (F) Weight: 294 lbs 04/07/2012 Blood Pressure 1: 124/76 Code: 8480-6 BMI: 39.9 Code: 18682-5 Heart Rate 1: 72 bpm Height: 6' Respiratory Rate: 20 bpm Temperature: 36 .9 (C) / 98.5 (F) Weight: 294 lbs 12/16/2011 Blood Pressure 1: 128/80 Code: 8480-6 BMI: 40.8 Code: 59358-1 Heart Rate 1: 74 bpm Height: 6' Temperature: 36.6 (C) / 97.8 (F) Weight: 301 lbs 12/03/2011 Blood Pressure 1: 132/76 Code: 8480-6 BMI: 40.8 Code: 37307-5 Heart Rate 1: 68 bpm Height: 6' Respiratory Rate: 20 bpm Temperature: 36 .8 (C) / 98.2 (F) Weight: 301 lbs 08/29/2011 Blood Pressure 1: 140/68 Code: 8480-6 BMI: 40.8 Code: 51767-0 Heart Rate 1: 80 bpm Height: 6' Respiratory Rate: 20 bpm Temperature: 36 .4 (C) / 97.6 (F) Weight: 301 lbs 05/30/2011 Blood Pressure 1: 134/82 Code: 8480-6 BMI: 41.5 Code: 70632-5 Heart Rate 1: 76 bpm Height: 6' [...] 1: 126/72 Code: 8480-6 BMI: 41.2 Code: 85377-6 Heart Rate 1: 76 bpm Height: 6' [...] 1: 152/90 Code: 8480-6 BMI: 37.7 Code: 60568-4 Heart Rate 1: 92 bpm Height: 6'1" [...] dm Encounters Encounter Performer Location Codes Date ([id number]) OFFICE/OUTPATIENT VISIT EST Diagnosis: Sore on toe[ICD10: L98.9] Neela FRENCH [place] CPT-4: 56037 07/06/2019 ([id number]) OFFICE/OUTPATIENT VISIT EST Diagnosis: Advanced chronic obstructive pulmonary disease[ICD10: J44.9] 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 CPT-4: 10488 12/09/2018 ([id number]) OFFICE/OUTPATIENT VISIT EST Diagnosis: COUGH[ICD10: R05] Diagnosis: Chronic obstructive pulmonary disease, unspecified[ICD10: J44.9] Diagnosis: Other disorders of lung[ICD10: J98.4] Diagnosis: Other nonspecific abnormal finding of lung field[ICD10: R91.8] Neela HYMAN [facility] CPT-4: 37740 11/24/2018 ([id number]) OFFICE/OUTPATIENT VISIT EST Diagnosis: Pneumonia, unspecified organism[ICD10: J18.9] Amita HYMAN [facility] CPT-4: 33984 09/16/2018 ([id number]) OFFICE/OUTPATIENT VISIT EST Diagnosis: Pneumonia, unspecified organism[ICD10: J18.9] Neela HYMAN [facility] CPT-4: 63172 09/03/2018 ([id number]) OFFICE/OUTPATIENT VISIT EST Diagnosis: Personal history of pneumonia (recurrent)[ICD10: Z87.01] Diagnosis: Cough[ICD10: R05] Diagnosis: Essential (primary) hypertension[ICD10: I10] Diagnosis: Type 2 diabetes mellitus with hyperglycemia[ICD10: E11.65] Amita ZHANGZocDoc [facility] CPT-4: 06089 08/27/2018 OFFICE/OUTPATIENT VISIT EST Diagnosis: Pneumonia, unspecified organism[ICD10: J18.9] Diagnosis: Chronic obstructive pulmonary disease with (acute) exacerbation[ICD10: J44.1] Diagnosis: Other specified symptoms and signs involving the circulatory and respiratory systems[ICD10: R09.89] Diagnosis: Essential (primary) hypertension[ICD10: I10] Amita HYMAN [facility] CPT-4: 03430 08/13/2018 OFFICE/OUTPATIENT VISIT EST Diagnosis: Pneumonia, unspecified organism[ICD10: J18.9] Diagnosis: Other specified symptoms and signs involving the circulatory and respiratory systems[ICD10: R09.89] Amita Santiago HYMAN [facility] CPT-4: 98130 08/11/2018 ([id number]) OFFICE/OUTPATIENT VISIT EST Diagnosis: Dyspnea, unspecified[ICD10: R06.00] Diagnosis: Chronic obstructive pulmonary disease with (acute) exacerbation[ICD10: J44.1] Diagnosis: Pneumonia, unspecified organism[ICD10: J18.9] Amita HYMAN [facility] CPT-4: 44692 07/16/2018 ([id number]) OFFICE/OUTPATIENT VISIT EST Diagnosis: Acute bronchitis due to other specified organisms[ICD10: J20.8] Diagnosis: Cough[ICD10: R05] Amita HYMAN [facility] T-4: 67753 07/13/2018 ([id number]) OFFICE/OUTPATIENT VISIT EST Diagnosis: Essential (primary) hypertension[ICD10: I10] Diagnosis: Chronic obstructive pulmonary disease, unspecified[ICD10: J44.9] Diagnosis: Type 2 diabetes mellitus with hyperglycemia[ICD10: E11.65] Diagnosis: Mixed hyperlipidemia[ICD10: E78.2] Neela MIRZARYAN STERLING Octavio ZHANG [facility] CPT-4: 67443 06/03/2018 ([id number]) OFFICE/OUTPATIENT VISIT EST Diagnosis: Chronic obstructive pulmonary disease, unspecified[ICD10: J44.9] Gely ZHANG [facility] CPT-4: 23937 05/04/2018 ([id number]) OFFICE/OUTPATIENT VISIT EST Diagnosis: Essential (primary) hypertension[ICD10: I10] Diagnosis: Localized edema[ICD10: R60.0] Neela MIRZALINE Octavio HYMAN [facility] CPT-4: 31108 03/03/2018 ([id number]) OFFICE/OUTPATIENT VISIT EST Diagnosis: Localized edema[ICD10: R60.0] Neela MIRZALINE Octavio HYMAN [facility] CPT-4: 09930 02/17/2018 ([id number]) OFFICE/OUTPATIENT VISIT EST Diagnosis: FLU VACCINE[ICD10: Z23] Diagnosis: PNEUMOCOCCAL VACCINE[ICD10: Z23] Diagnosis: Type 2 diabetes mellitus without complications[ICD10: E11.9] Diagnosis: Mixed hyperlipidemia[ICD10: E78.2] Diagnosis: Essential (primary) hypertension[ICD10: I10] Diagnosis: Localized edema[ICD10: R60.0] Diagnosis: Chronic obstructive pulmonary disease, unspecified[ICD10: J44.9] Neela HYMAN [facility] CPT-4: 52129 02/10/2018 ([id number]) OFFICE/OUTPATIENT VISIT EST Diagnosis: Type 2 diabetes mellitus with hyperglycemia[ICD10: E11.65] Diagnosis: Mixed hyperlipidemia[ICD10: E78.2] Diagnosis: Essential (primary) hypertension[ICD10: I10] Diagnosis: Chronic obstructive pulmonary disease, unspecified[ICD10: J44.9] Diagnosis: Cutaneous abscess of back [any part, except buttock][ICD10: L02.212] Neela HYMAN [facility] CPT-4: 51381 11/05/2017 ([id number]) OFFICE/OUTPATIENT VISIT EST Diagnosis: Allergic urticaria[ICD10: L50.0] Gely HYMAN [facility] CPT-4: 83636 09/09/2017 ([id number]) OFFICE/OUTPATIENT VISIT EST Diagnosis: Generalized enlarged lymph nodes[ICD10: R59.1] Diagnosis: Acute gastritis without bleeding[ICD10: K29.00] Gely HYMAN [facility] CPT-4: 25840 08/07/2017 ([id number]) OFFICE/OUTPATIENT VISIT EST Diagnosis: Type 2 diabetes mellitus without complications[ICD10: E11.9] Diagnosis: Mixed hyperlipidemia[ICD10: E78.2] Diagnosis: Essential (primary) hypertension[ICD10: I10] Neela ZHANG [facility] CPT-4: 05166 08/04/2017 ([id number]) OFFICE/OUTPATIENT VISIT EST Diagnosis: Zoster without complications[ICD10: B02.9] Diagnosis: Acute sialoadenitis[ICD10: K11.21] Gely FRIEND ASHER [employer] ZHANGZoc[facility] CPT-4: 18843 06/04/2017 OFFICE/OUTPATIENT VISIT EST Diagnosis: Zoster without complications[ICD10: B02.9] Diagnosis: Acute sialoadenitis[ICD10: K11.21] Gely HYMAN [facility] CPT-4: 72779 06/02/2017 ([id number]) OFFICE/OUTPATIENT VISIT EST Diagnosis: Type 2 diabetes mellitus without complications[ICD10: E11.9] Diagnosis: Mixed hyperlipidemia[ICD10: E78.2] Diagnosis: Essential (primary) hypertension[ICD10: I10] Diagnosis: Chronic obstructive pulmonary disease, unspecified[ICD10: J44.9] Neela HYMAN [facility] CPT-4: 11023 05/05/2017 OFFICE/OUTPATIENT VISIT EST Diagnosis: Chronic obstructive pulmonary disease with acute lower respiratory infection[ICD10: J44.0] Diagnosis: Impacted cerumen, bilateral[ICD10: H61.23] Gely HYMAN DO [facility] CPT-4: 44919 04/10/2017 ([id number]) OFFICE/OUTPATIENT VISIT EST Diagnosis: FLU VACCINE[ICD10: Z23] Neela BUI [facility] CPT-4: 86718 03/28/2017 ([id number]) OFFICE/OUTPATIENT VISIT EST Diagnosis: Type 2 diabetes mellitus without complications[ICD10: E11.9] Diagnosis: Mixed hyperlipidemia[ICD10: E78.2] Diagnosis: Essential (primary) hypertension[ICD10: I10] Diagnosis: Chronic obstructive pulmonary disease, unspecified[ICD10: J44.9] Neela HYMAN [facility] CPT-4: 00558 02/03/2017 ([id number]) OFFICE/OUTPATIENT VISIT EST Diagnosis: Type 2 diabetes mellitus with hyperglycemia[ICD10: E11.65] Diagnosis: Mixed hyperlipidemia[ICD10: E78.2] Diagnosis: Essential (primary) hypertension[ICD10: I10] Diagnosis: Chronic obstructive pulmonary disease, unspecified[ICD10: J44.9] Neela HYMAN DO [facility] CPT-4: 61065 10/30/2016 ([id number]) NO CHARGE Diagnosis: Acute bronchitis, unspecified[ICD10: J20.9] Sammi Najera NEELA Octavio HYMAN [facility] CPT-4: 96619 08/30/2016 ([id number]) OFFICE/OUTPATIENT VISIT EST Diagnosis: Acute bronchitis, unspecified[ICD10: J20.9] Diagnosis: Other seasonal allergic rhinitis[ICD10: J30.2] Sammi HYMAN [facility] CPT-4: 64837 08/27/2016 ([id number]) OFFICE/OUTPATIENT VISIT EST Diagnosis: Type 2 diabetes mellitus without complications[ICD10: E11.9] Diagnosis: Mixed hyperlipidemia[ICD10: E78.2] Diagnosis: Essential (primary) hypertension[ICD10: I10] Neela HYMAN [facility] CPT-4: 27706 07/02/2016 ([id number]) OFFICE/OUTPATIENT VISIT EST Diagnosis: Acute bronchitis, unspecified[ICD10: J20.9] Sammi HYMAN DO [facility] CPT-4: 88606 06/14/2016 ([id number]) OFFICE/OUTPATIENT VISIT EST Diagnosis: Acute bronchitis, unspecified[ICD10: J20.9] Sammi HYMAN [facility] CPT-4: 78110 06/13/2016 ([id number]) OFFICE/OUTPATIENT VISIT EST Diagnosis: Essential (primary) hypertension[ICD10: I10] Neela HYMAN [facility] CPT-4: 25801 05/14/2016 ([id number]) OFFICE/OUTPATIENT VISIT EST Diagnosis: Essential (primary) hypertension[ICD10: I10] Neela HYMAN DO [facility] CPT-4: 90249 04/29/2016 ([id number]) OFFICE/OUTPATIENT VISIT EST Diagnosis: Unspecified abdominal pain[ICD10: R10.9] Diagnosis: Left lower quadrant pain[ICD10: R10.32] Diagnosis: Left upper quadrant pain[ICD10: R10.12] Diagnosis: Essential (primary) hypertension[ICD10: I10] Neela HYMAN DO [facility] CPT-4: 26630 04/22/2016 ([id number]) OFFICE/OUTPATIENT VISIT EST Diagnosis: Type 2 diabetes mellitus without complications[ICD10: E11.9] Diagnosis: Mixed hyperlipidemia[ICD10: E78.2] Diagnosis: Essential (primary) hypertension[ICD10: I10] Neela HYMAN DO [facility] CPT-4: 17447 04/01/2016 ([id number]) OFFICE/OUTPATIENT VISIT EST Diagnosis: Type 2 diabetes mellitus with hyperglycemia[ICD10: E11.65] Diagnosis: Mixed hyperlipidemia[ICD10: E78.2] Diagnosis: Essential (primary) hypertension[ICD10: I10] Neela HYMAN DO [facility] CPT-4: 19702 11/30/2015 ([id number]) OFFICE/OUTPATIENT VISIT EST Diagnosis: Type 2 diabetes mellitus with diabetic neuropathy, unspecified[ICD10: E11.40] Diagnosis: Essential (primary) hypertension[ICD10: I10] Diagnosis: Mixed hyperlipidemia[ICD10: E78.2] Neelasabina Zhanginna RONNA ASHER HYMAN DO [facility] CPT-4: 23117 08/29/2015 ([id number]) OFFICE/OUTPATIENT VISIT EST Diagnosis: COUGH[ICD10: R05] Diagnosis: Wheezing[ICD10: R06.2] Diagnosis: Type 2 diabetes mellitus with diabetic neuropathy, unspecified[ICD10: E11.40] Neela HYMAN DO [facility] CPT-4: 20125 08/14/2015 ([id number]) OFFICE/OUTPATIENT VISIT EST Diagnosis: Other seasonal allergic rhinitis[ICD10: J30.2] Diagnosis: Dyspnea, unspecified[ICD10: R06.00] Diagnosis: Wheezing[ICD10: R06.2] Sammi Najera NEELA HMYAN DO [facility] CPT-4: 58588 08/09/2015 ([id number]) OFFICE/OUTPATIENT VISIT EST Diagnosis: Essential (primary) hypertension[ICD10: I10] Diagnosis: Type 2 diabetes mellitus with hyperglycemia[ICD10: E11.65] Diagnosis: Mixed hyperlipidemia[ICD10: E78.2] Neela Orendinna ANNJYOTIRYAN HYMAN DO [facility] CPT-4: 22527 05/22/2015 ([id number]) OFFICE/OUTPATIENT VISIT EST Diagnosis: DM W/O COMPLICATION TYPE II[ICD9: 250.00] Diagnosis: - I - HYPERTENSION[ICD9: 401.9] Diagnosis: - I - HYPERLIPIDEMIA NEC/NOS[ICD9: 272.4] Diagnosis: Left hand paresthesia[ICD9: 782.0] Neela Yenni FRIEND ASHER Octavio ZHANG [employer] [facility] CPT-4: 59280 02/13/2015 ([id number]) OFFICE/OUTPATIENT VISIT EST Diagnosis: HYPERLIPIDEMIA NEC/NOS[ICD9: 272.4] Diagnosis: DM W/O COMPLICATION TYPE II[ICD9: 250.00] [facility] 59917 11/07/2014 ([id number]) OFFICE/OUTPATIENT VISIT EST Diagnosis: ALLERGIC RHINITIS[ICD9: 477.9] Diagnosis: WHEEZING[ICD9: 786.07] Neela Duarte [facility] [facility] CPT-4: 16728 10/04/2014 ([id number]) OFFICE/OUTPATIENT VISIT EST Diagnosis: BRONCHITIS, ACUTE[ICD9: 466.0] Diagnosis: WHEEZING[ICD9: 786.07] Loren Duarte Smove [facility] CPT-4: 35519 09/22/2014 ([id number]) OFFICE/OUTPATIENT VISIT EST Diagnosis: DYSPNEA[ICD9: 786.09] Diagnosis: WHEEZING[ICD9: 786.07] Diagnosis: Arrhythmia[ICD9: 427.9] Loren ZHANG [facility] CPT-4: 29789 09/21/2014 ([id number]) OFFICE/OUTPATIENT VISIT EST Diagnosis: DM W/O COMPLICATION TYPE II, 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] Diagnosis: - I - HYPERLIPIDEMIA NEC/NOS[ICD9: 272.4] Diagnosis: - I - HYPERTENSION[ICD9: 401.9] Neela MIRZALINE Octavio [facility] C[facility]: 99650 06/28/2014 OFFICE/OUTPATIENT VISIT EST Diagnosis: SINUSITIS, ACUTE[ICD9: 461.9] Diagnosis: OTITIS MEDIA NOS[ICD9: 382.9] Sarah Sunshine NEELA Octavio [facility] CPT-[facility]: 17700 06/10/2014 ([id number]) OFFICE/OUTPATIENT VISIT EST Diagnosis: DM W/O COMPLICATION TYPE II[ICD9: 250.00] Diagnosis: - I - HYPERLIPIDEMIA NEC/NOS[ICD9: 272.4] Diagnosis: - I - HYPERTENSION[ICD9: 401.9] Neela HYMAN [facility] CPT-4: 86892 03/29/2014 ([id number]) OFFICE/OUTPATIENT VISIT EST Diagnosis: DM W/O COMPLICATION TYPE II[ICD9: 250.00] Diagnosis: - I - HYPERTENSION[ICD9: 401.9] Diagnosis: - I - HYPERLIPIDEMIA NEC/NOS[ICD9: 272.4] Diagnosis: Hand lesion[ICD9: 709.9] Neela MADRIGAL [facility] CPT-4: 17572 11/30/2013 ([id number]) OFFICE/OUTPATIENT VISIT EST Diagnosis: DM W/O COMPLICATION TYPE II[ICD9: 250.00] Diagnosis: HYPERLIPIDEMIA NEC/NOS[ICD9: 272.4] Diagnosis: HYPERTENSION[ICD9: 401.9] Neela VASQUEZ [facility] CPT-4: 44568 08/03/2013 ([id number]) OFFICE/OUTPATIENT VISIT EST Diagnosis: DM W/O COMPLICATION TYPE II, 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] Diagnosis: HYPERTENSION[ICD9: 401.9] Diagnosis: HYPERLIPIDEMIA NEC/NOS[ICD9: 272.4] Neela HYMAN [facility] CPT-4: 21798 04/06/2013 ([id number]) OFFICE/OUTPATIENT VISIT EST Diagnosis: DM W/O COMPLICATION TYPE II[ICD9: 250.00] Diagnosis: HYPERLIPIDEMIA NEC/NOS[ICD9: 272.4] Diagnosis: HYPERTENSION[ICD9: 401.9] Neela VASQUEZ [facility] CPT-4: 08199 12/01/2012 ([id number]) OFFICE/OUTPATIENT VISIT EST Diagnosis: DM W/O COMPLICATION TYPE II[ICD9: 250.00] Diagnosis: HYPERTENSION[ICD9: 401.9] Diagnosis: HYPERLIPIDEMIA NEC/NOS[ICD9: 272.4] Neela HYMAN [facility] CPT-4: 54457 08/04/2012 ([id number]) OFFICE/OUTPATIENT VISIT EST Diagnosis: URINARY FREQUENCY[ICD9: 788.41] Neela HYMAN [facility] CPT-4: 82267 06/01/2012 OFFICE/OUTPATIENT VISIT EST Diagnosis: Agitation[ICD9: 307.9] Diagnosis: Frequent urination[ICD9: 788.41] Janet Jean Baptiste NEELA JulissaMendez YENNI [facility] CPT-4: 91361 05/29/2012 OFFICE/OUTPATIENT VISIT EST Diagnosis: SINUSITIS, ACUTE[ICD9: 461.9] Diagnosis: OTALGIA[ICD9: 388.70] Neela Sergeushainna MIRZANEELA Octavio [facility] CPT-4: 01590 05/25/2012 OFFICE/OUTPATIENT VISIT EST Diagnosis: DM W/O COMPLICATION TYPE II, 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] Diagnosis: HYPERTENSION[ICD9: 401.9] Diagnosis: HYPERLIPIDEMIA NEC/NOS[ICD9: 272.4] Neela Sergeushainna ANNJUAN CARLOS DARLINE [facility] CPT-4: 35164 04/07/2012 OFFICE/OUTPATIENT VISIT EST Diagnosis: FINGER INJURY[ICD9: 959.5] Janet Markel MURILLO [facility] C[facility]: 89012 12/16/2011 ([id number]) OFFICE/OUTPATIENT VISIT EST Diagnosis: DM W/O COMPLICATION TYPE II, 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] Diagnosis: HYPERTENSION[ICD9: 401.9] Diagnosis: HYPERLIPIDEMIA NEC/NOS[ICD9: 272.4] Neela Zhanginna ANNJUAN CARLOS DARLINE [facility] CPT-4: 90080 12/03/2011 ([id number]) OFFICE/OUTPATIENT VISIT EST Diagnosis: DM W/O COMPLICATION TYPE II[ICD9: 250.00] Diagnosis: HYPERLIPIDEMIA NEC/NOS[ICD9: 272.4] Diagnosis: HYPERTENSION[ICD9: 401.9] Neela MURILLO JulissaMendez SERGE VASQUEZ [facility] CPT-4: 84484 08/29/2011 OFFICE/OUTPATIENT VISIT EST Diagnosis: DM W/O COMPLICATION TYPE II[ICD9: 250.00] Diagnosis: HYPERLIPIDEMIA NEC/NOS[ICD9: 272.4] Diagnosis: HYPERTENSION[ICD9: 401.9] Neela MURILLO JulissaMendez SERGE VASQUEZ [facility] CPT-4: 08137 05/30/2011 OFFICE/OUTPATIENT VISIT EST Diagnosis: SKIN SENSATION DISTURB[ICD9: 782.0] Neela [facility] CPT-4: 04244 01/29/2011 OFFICE/OUTPATIENT VISIT EST Diagnosis: SKIN SENSATION DISTURB[ICD9: 782.0] Neela [facility] CPT-4: 30106 01/14/2011 OFFICE/OUTPATIENT VISIT EST Neela [facility] CPT- 4: 80621 01/01/2011 OFFICE/OUTPATIENT VISIT EST Neela Cunningham [facility] CPT- 4: 82835 11/29/2010 ([id number]) OFFICE/OUTPATIENT VISIT EST Neela HORAN SMendez [facility] CPT-4: 10449 08/28/2010 ([id number]) OFFICE/OUTPATIENT VISIT, EST Neela WILDE SMendez [facility] CPT-4: 06459 06/05/2010 ([id number]) OFFICE/OUTPATIENT VISIT, EST Neela [facility] CPT-4: 01730 02/05/2010 ([id number]) OFFICE/OUTPATIENT VISIT, EST Neela [facility] CPT-4: 50571 10/09/2009 ([id number]) OFFICE/OUTPATIENT VISIT, EST Neeal WILDE SMendez [facility] CPT-4: 61780 08/22/2009 Plan of Care Planned Activity Notes Codes Status Date Visit Diagnosis Plan: Sore on toe Discussion: Keep farhat an/dry Keflex Notify if worsens ICD-9 : 709.9 ICD-10 : L98.9 07/06/2019 Patient Education: Jaskaran- OptimizeKAYA Blue [id number] https://www.[employer]/samplemd/resources/getResource/61/3fy263lx-34q2-0u06-55 Completed 07/06/2019 Visit Diagnosis Plan: Advanced chronic obstructive pul monary disease Discussion: Continue oxygen and pulmonary rehab Follow Up: 3 months ICD-9 : 496 ICD-10 : J44.9 05/10/2019 Visit Diagnosis Plan: Lymphoma involving lung Discussi on: Doing weekly lab and chemo ICD-9 : 202.82 ICD-10 : C85.99 05/10/2019 Appointment: Neela Hymantel: [address] [place] [address] FOLLOW UP 05/10/2019 Appointment: Neela Hymantel: [address] [place] [address] [place] he called 04/14/19-- he was at [...] E87.6 03/29/2019 Appointment: Neela Hyman WPtel: [address] [place] [address] Hospital Follow Up 03/29/2019 Appointment: Neela Hyman WPtel: [address] [place], [place] [phone] [place] INJECTION 03/04/2019 Visit Diagnosis Plan: Chronic obstructiv e pulmonary disease with (acute) exacerbation Discussion: Increase SVNS with duoneb to QID Prednisone taper ICD-9 : 491.21 ICD-10 : J44.1 01/05/2019 Visit Diagnosis Plan: Other nonspecific abnormal findi ng of lung field Discussion: Referral to pulmonology--will likely need bronchoscopy--path results discussed ICD-9 : 786.6 ICD-10 : R91.8 01/05/2019 Appointment: Neela Hyman WPtel: [address] [place], [place] [phone] [place] FOLLOW UP 01/05/2019 Patient Education: prednisone- OptimizeRX Coupon [id number] https://www.[employer]/samplemd/resources/getResource/61/z0ef2048-101g-0q87-di Completed 01/05/2019 Care Plan: Referral Order SNOMED-CT : 30 [id number] Pending 01/05/2019 Appointment: Neela Hyman WPtel: [address] [place], [place] [phone] [place] CANCELED 12/21/2018 Visit Diagnosis Plan: Tinea corporis Discussion: Diflu can--hold simvastatin and fenofibrate while taking ICD-9 : 110.5 ICD-10 : B35.4 12/09/2018 Visit Diagnosis Plan: Solitary pulmonary nodule Discus esmer: CT guided needle biopsy of RUL lung mass ICD-9 : 793.11 ICD-10 : R91.1 12/09/2018 Appointment: Neela Hyman WPtel: [address] [place] [address] [place] FOLLOW UP 12/09/2018 Appointment: Gely Harp [address] [place] [address] NO SHOW 12/01/2018 Visit Diagnosis Plan: Other [...] : J44.9 11/24/2018 Appointment: Neela Hyman WPtel: [address] [place], [place] [address] [place] FOLLOW UP 11/24/2018 Care Plan: PET IMAGE FULL BODY LOINC : 4 2711-2 Pending 11/24/2018 Appointment: Neela [facility]Ptel[facility] [phone] [facility] [place] Consult 09/21/2018 Visit Diagnosis Plan: Pneumonia, [...] ICD-10 : J18.9 09/16/2018 Appointment: Amita Henderson [address] [place], [place] [phone] FOLLOW UP 09/16/2018 Visit Diagnosis Plan: Pneumonia, unspecified organism Discussion: Clinically patient feels and looks much better but need CT scan of chest due to ongoing round pneumonia in association with his known lymphoma ICD-9 : 486 ICD-10 : J18.9 09/03/2018 Appointment: Neela Hyman WPtel: [facility] FOLLOW UP 09/03/2018 Care Plan: CT [...] : Z87.01 08/27/2018 Appointment: Amita Henderson [id number] FOLLOW UP 08/27/2018 Visit Diagnosis Plan: Other [...] ICD-10 : I10 08/13/2018 Appointment: Amita Henderson [id number] FOLLOW UP 08/13/2018 Appointment: Amita Henderson [id number] CANCELED 08/13/2018 Patient Education: prednisone- OptimizeRX Coupon [id number] https://www.[employer]/sampleStyleSeek/resources/getResource/61/dv78xz6r-4f36-8de9-9e Completed 08/13/2018 Visit Diagnosis Plan: Other specified [...] ICD-10 : J18.9 08/11/2018 Appointment: Amita Henderson [address] [place] [address] ACUTE ILLNESS 08/11/2018 Care Plan: CHEST X-RAY 2VW FRONTAL&LATL LOINC : 32639-9 Pending 07/20/2018 Visit Diagnosis Plan: Dyspnea, unspecified Discussion: CXR- to be completed at the hospital. Will call with results and any adjustments in plan. Solumedrol 125 administered in clinic Prednisone 20 mg BID x 5 days- start tomorrow ICD-9 : 786.09 ICD-10 : R06.00 07/16/2018 Appointment: Amita Henderson [address] [place] [address] ACUTE ILLNESS 07/16/2018 Patient Education: prednisone- OptimizeRX Coupon [id number] https://www.[employer]/samplemd/resources/getResource/61/01m7t0xn-lc93-9fl0-n0 Completed 07/16/2018 Visit Diagnosis Plan: Acute bronchitis due to other sp ecified organisms Discussion: Kenalog 40 mg IM administered in clinic. Doxycycline called into [facility]. Take as directed. Continue nebulizer and Trelegy. Follow up if symptoms are not improving with treatment regimen. Patient states understanding of all instruction. ICD-9 : 466.0 ICD-10 : J20.8 07/13/2018 Appointment: Amita Henderson [address] [place] [address] ACUTE ILLNESS 07/13/2018 Patient Education: doxycycline hyclate- OptimizeRX Cou saritha [id number] https://www.NIMBOXX.com/samplemd/resources/getResource/61/5g084n45-2n2y-3722-2w Completed 07/13/2018 Care Plan: [place] : [address]43-3 Pending 07/13/2018 Care Plan: CBC Pending 07/13/2018 Care Plan: A1C HPLC LOINC : 57435-7 Pending 07/13/2018 Visit Diagnosis Plan: Mixed hyperlipidemia [...] : I10 06/03/2018 Appointment: Neela Hyman WPtel: [address] [place] [address] [place] FOLLOW UP 06/03/2018 Visit Diagnosis Plan: [...] ICD-10 : J44.9 05/04/2018 Appointment: Gely Harp [address] [place] [address] ACUTE ILLNESS 05/04/2018 Visit Diagnosis Plan: Localized edema Discussion: Cont inue lasix and potassium at every other day Recheck lab and fwup in 3mos Follow Up: 3 months ICD-9 : 782.3 ICD-10 : R60.0 03/03/2018 Appointment: Neela Hyman WPtel: [address] [place] [address] [place] FOLLOW UP 03/03/2018 Patient Education: Patient Medication Summary Completed 03/03/2018 Visit Diagnosis Plan: Localized edema Discussion: Finch ge lasix and potassium to every other day Check Chem 7 in 2 weeks and fwup ICD-9 : 782.3 ICD-10 : R60.0 02/17/2018 Appointment: Neela Hyman WPtel: [address] [place] [address] [place] FOLLOW UP 02/17/2018 Patient Education: Patient [...] R60.0 02/10/2018 Appointment: Neela [facility]yman [facility]Ptel: [phone] [facility] [place] FOLLOW UP 02/10/2018 Patient Education: Patient [...] Appointment: Neela Hyman WPtel: [phone] [id number] FOLLOW UP 11/05/2017 Patient Education: Patient Medication Summary Completed 11/05/2017 Patient Education: Patient Medication Summary Completed 11/03/2017 Care Plan: [place] : [address]-7 Pending 11/03/2017 Care Plan: LIPID PANEL LOINC : 33880-0 Pending 11/03/2017 Care Plan: CBC Pending 11/03/2017 Care Plan: A1C HPLC LOINC : 83792-2 Pending 11/03/2017 Visit Diagnosis Plan: Allergic urticaria [...] : L50.0 09/09/2017 Appointment[facility] [facility] 09/09/2017 Patient Education: Patient Medication [...] : R59.1 08/07/2017 Appointment: [facility] [facility] Follow Up 08/07/2017 Patient Education: Patient Medication Summary Completed 08/07/2017 Visit Diagnosis Plan: Type 2 diabetes mellitus without complications Discussion: Accuchecks daily Lab discussed Continue current meds ICD-9 : 250.00 ICD-10 : E11.9 08/04/2017 Visit Diagnosis Plan: Essential (primary) hypertension Discussion: Increase Cardizem CD to 360mg daily ICD-9 : 401.9 ICD-10 : I10 08/04/2017 Appointment: Neela Hyman WPtel: [address] [facility]6[address] FOLLOW UP 08/04/2017 Patient Education: Patient Medication Summary Completed 08/04/2017 Patient Education: Patient Medication Summary Completed 07/31/2017 Care Plan: [place] : [address]-8 Pending 07/31/2017 Care Plan: ASSAY THYROID STIM HORMONE Pen ding 07/31/2017 Care Plan: LIPID PANEL LOINC : 61328-2 Pending 07/31/2017 Care Plan: CBC Pending 07/31/2017 Care Plan: A1C HPLC LOINC : 03465-7 Pending 07/31/2017 Patient Education: Patient Medication Summary Completed 06/19/2017 Patient Education: Patient Medication Summary Completed 06/09/2017 Care Plan: CT SOFT TISSUE NECK [place] : 17579-0 Pending 06/09/2017 Visit Diagnosis Plan: Acute sialoadenitis [...] ICD-10 : B02.9 06/04/2017 Appointment: Gely Harp [address] [place], [place] [phone] ACUTE ILLNESS 06/04/2017 Patient Education: Patient [...] ICD-10 : B02.9 06/02/2017 Appointment: Gely Harp [address] [place], [place] [phone] ACUTE ILLNESS 06/02/2017 Patient Education: Patient [...] E11.9 05/05/2017 Appointment: Neela Hyman WPtel: [address] [facility] FOLLOW UP 05/05/2017 Patient Education: Patient Medication Summary Completed 05/05/2017 Patient Education: Patient Medication Summary Completed 05/01/2017 Care Plan: A1C HPLC [facility] : 62262-1 Pending 05/01/2017 Visit Diagnosis Plan: Chronic obstructiv [...] ICD-10 : H61.23 04/10/2017 Appointment: Gely Harp [address] [place] [address] ACUTE ILLNESS 04/10/2017 Patient Education: Patient Medication Summary Completed 04/10/2017 Appointment: Neela Hyman WPtel: [address] [place] [address] INJECTION 03/28/2017 Patient Education: Patient Medication Summary [...] : J44.9 02/03/2017 Appointment: Neela Hyman WPtel: [address] [place] [address] FOLLOW UP 02/03/2017 Patient Education: Patient Medication Summary Completed 02/03/2017 Patient Education: Patient Medication Summary Completed 01/30/2017 Care Plan: COMPREH[place] : 02790-0 Pending 01/30/2017 Care Plan: LIPID PANEL LOINC : 48314-9 Pending 01/30/2017 Care Plan: CBC Pending 01/30/2017 Care Plan: A1C HPLC LOINC : 20419-1 Pending 01/30/2017 Care Plan: ASSAY OF PSA [...] : E11.65 10/30/2016 Appointment: Neela Hyman WPtel: [address] [place], [place] [address] [place] 6/ lm ~sl / confirmed~sl FOLLOW UP 11/2016 Patient Education: Patient Medication Summary Completed 10/30/2016 Patient Education: Patient Medication Summary Completed 10/24/2016 Visit Diagnosis Plan: Acute bronchitis, unspecified Di scussion: Patient sounds and looks much improved Continue current regimen Keep appt with Dr Levi for Friday Follow up PRN ICD-9 : 466.0 ICD-10 : J20.9 08/30/2016 Appointment: Sammi Najera [facility] [facility] [place] 4/6 rang and rang rang /7 [...] ICD-10 : J20.9 08/27/2016 Appointment: Sammi Najera [address] [place], [place] [phone] FOLLOW UP 08/27/2016 Patient Education: Patient Medication Summary Completed 08/27/2016 Care Plan: Referral Order SNOMED-CT : 30 [id number] Pending 08/27/2016 Visit Diagnosis Plan: Type 2 [...] : I10 07/02/2016 Appointment: Neela Hyman WPtel: [address] [place] [address] 07/01 rang and rang`sl FOLLOW UP 7 Patient Education: Patient Medication Summary Completed 07/02/2016 Patient Education: Patient Medication Summary Completed 06/27/2016 Care Plan: LIPID PANEL LOINC : 25930-8 Pending 06/27/2016 Care Plan: [place] : [address]-4 Pending 06/27/2016 Care Plan: A1C HPLC LOINC : 41539-0 Pending 06/27/2016 Visit Diagnosis Plan: Acute bronchitis, [...] : J20.9 06/14/2016 Appointment: Sammi Najera [facility] [facility] FOLLOW UP 06/14/2016 Patient Education: Patient Medication [...] ICD-10 : J20.9 06/13/2016 Appointment: Sammi Najera [address] [place] [address] ACUTE ILLNESS 06/13/2016 Patient Education: Patient Medication Summary Completed 06/13/2016 Care Plan: CHEST X-RAY 2VW FRONTAL&LATL LOINC : 84967-7 Pending 06/13/2016 Visit Plan: Increase metoprolol to 100mg po BID BP readings and BP check in 1month 05/14/2016 Appointment: Neela Hyman WPtel: [address] [place], [place] [phone] 05/13 rang and rang`sl FOLLOW UP 6 Patient Education: Patient Medication Summary Completed 05/14/2016 Visit Plan: Increase metoprolol to 50mg BID BP check in 1 week f/u BP appt 2 weeks consider musculoskeletal if pain returns 04/29/2016 Appointment: Neela Hyman WPtel: [address] [place], [place] [phone] 04/25 confimred~sl FOLLOW UP 04/29/2016 Patient Education: Patient Medication Summary Completed 04/29/2016 Visit Plan: Stat CT scan of abdomen/pelv is to look for stone Hydrate and use tramadol prn Increase metoprolol to 25mg po BID Will see urology pending CT scan results 04/22/2016 Appointment: Neela Hyman WPtel: [address] [place], [place] [phone] 04/17 confirmed-sp ACUTE ILLNESS 04/22/2016 Patient [...] shot 04/01/2016 Appointment: Neela Hyman WPtel: [address] [place], [place] [phone] FOLLOW UP 04/01/2016 Patient Education: Patient Medication Summary Completed 04/01/2016 Patient Education: [facility] - Saving AutoInj - 18-64 - Dynamic Heber l ID Completed 04/01/2016 Patient Education: Patient Medication Summary Completed 03/28/2016 Care Plan: A1C HPLC LOINC : 57414-3 Pending 03/28/2016 Care Plan: [place] : [address]-0 Pending 03/28/2016 Visit Plan: Lab discussed Continue curre nt meds Accuchecks daily 11/30/2015 Appointment: Neela Hyman WPtel: [address] [place], [place] [phone] 7/6 confirmed~sl FOLLOW UP 11/30/2015 Patient Education: Patient Medication Summary Completed 11/30/2015 Appointment: Neela Hyman WPtel: [address] [place], [place] [phone] RESCHEDULED 11/28/2015 Patient Education: Patient Medication Summary Completed 11/23/2015 Care Plan: COMPREH[place]AB[place] : 56615-2 Pending 11/23/2015 Care Plan: LIPID PANEL LOINC : 80050-1 Pending 11/23/2015 Care Plan: CBC Pending 11/23/2015 Care Plan: A1C HPLC LOINC : 32635-2 Pending 11/23/2015 Visit Plan: Lab discussed Accuchecks richard ly Continue current meds Cymbalta helping with feet and mood 08/29/2015 Appointment: Neela Hyman WPtel: [address] [place], [place] [phone] FOLLOW UP 08/29/2015 Patient Education: Patient Medication Summary Completed 08/29/2015 Visit Plan: Check CXR Stop all steroids and steroid inhalers Use SVN with but change to duoneb Add singulair for allergy etiology Change fluoxetine to cymbalta 60mg daily Viagra samples given to try prn--warned of no nitrates 08/14/2015 Appointment: Neela Hyman WPtel: [address] [place], [place] [phone] lm to reschedule ~sl 07/27 lm ~sl 08/09 busy 08/10 conf irmed-sp Annual Well Visit 08/14/2015 Patient Education: Patient Medication Summary Completed 08/14/2015 Care Plan: CHEST X-RAY 2VW FRONTAL&LATL LOINC : 08230-3 Ordered 08/14/2015 Visit Plan: Decadron 8mg given [...] as expected 08/09/2015 Appointment: Sammi Najera [address] [facility] ER Follow UP 08/09/2015 Patient Education: Patient Medication Summary Completed 08/09/2015 Patient Education: [facility] - Saving AutoInj - 18-64 - Dynamic [...] with it 05/22/2015 Appointment: Neela Hyman WPtel: [address] [place], [place] [phone] 05/17 confirmed~sl FOLLOW UP 05/22/2015 Patient Education: Patient Medication Summary Completed 05/22/2015 Patient Education: Patient Medication Summary Completed 05/15/2015 Visit Plan: Obtain EMGs done at [place] from when fractured left arm Lab discussed Accuchecks daily 02/13/2015 Appointment: Neela Hyman WPtel: [address] [place], [place] [phone] 02/10 confrimed FOLLOW UP 02/13/2015 Patient Education: Patient Medication Summary Completed 02/13/2015 Patient Education: Patient Medication Summary Completed 02/09/2015 Visit Plan: discussed lab add fenofibrat e 134mg po daily recheck fasting lab in 3 months, CBC, CMP, Lipids, hgb AIC 11/07/2014 Appointment: Neela Hyman WPtel: [address] [place], [place] [phone] 11/04 appt confirmed cn FOLLOW UP 015 Patient Education: Patient Medication Summary Completed 11/07/2014 Patient Education: Patient Medication Summary Completed 11/03/2014 Visit Plan: Continue loratadine 10mg richard ly Notify if symptoms return 10/04/2014 Appointment: Neela Hyman WPtel: [address] [place], [place] [phone] confirmed on 10/03 at 2:42pm FOLLOW UP 09/23 Patient Education: Patient Medication Summary Completed 10/04/2014 Appointment: Neela Hyman WPtel: [address] [place], [place] [phone] ACUTE ILLNESS 09/28/2014 Appointment: Loren Garza WPtel: [address] [place], [place] [phone] FOLLOW UP 09/22/2014 Patient Education: Patient Medication Summary Completed 09/22/2014 Appointment: Loren Garza WPtel: [address] [place], [place] [phone] ACUTE ILLNESS 09/21/2014 Patient Education: Patient Medication Summary Completed 09/21/2014 Patient Education: [facility] - Saving AutoInj - 18+ - Dynamic Portal ID Completed 09/21/2014 Visit Plan: Lab discussed Continue daily accuchecks Continue current meds 06/28/2014 Appointment: Neela Hyman WPtel: [address] [place], [place] [phone] FOLLOW UP 06/28/2014 Patient Education: Patient Medication Summary Completed 06/28/2014 Patient Education: Patient Medication Summary Completed 06/23/2014 Appointment: Sarah Sunshine WPtel: [address] [place], [place] [phone] ACUTE ILLNESS 06/10/2014 Patient Education: Patient Medication Summary Completed 06/10/2014 Patient Education: [facility] - Saving AutoInj - 18+ - Dynamic Portal ID Completed 06/10/2014 Visit Plan: Lab discussed Continue daily accuchecks Continue current meds 03/29/2014 Appointment: Neela Hyman WPtel: [address] [place], [place] [phone] FOLLOW UP 03/29/2014 Patient Education: Patient Medication Summary Completed 03/29/2014 Patient Education: Patient Medication Summary Completed 03/23/2014 Visit Plan: Lab discussed Continue curre nt meds and accuchecks See surgery for removal of hand lesion 11/30/2013 Appointment: Neela Hyman WPtel: [address] [place] [address] 11/29 no answer FOLLOW UP 11/30/2013 Patient Education: Patient Medication Summary Completed 11/30/2013 Visit Plan: Lab discussed Continue curre nt meds 08/03/2013 Appointment: Neela Hyman WPtel: [address] [place] [address] FOLLOW UP 08/03/2013 Patient Education: Patient Medication Summary Completed 08/03/2013 Visit Plan: Lab Discussed Will continue current meds and pt will get back on diet/exercise Check lab in 4mos and fwup 04/06/2013 Appointment: Neela Hyman WPtel: [address] [place] [address] FOLLOW UP 04/06/2013 Patient Education: Patient Medication Summary Completed 04/06/2013 Visit Plan: Lab discussed Continue daily accuchecks 12/01/2012 Appointment: Neela Hyman WPtel: [address] [place], [place] [phone] 11/30 no answer FOLLOW UP 12/01/2012 Patient Education: Patient Medication Summary Completed 12/01/2012 Visit Plan: Continue current meds and da russell accuchecks Lab discussed 08/04/2012 Appointment: Neela Hyman WPtel: [address] [place], [place] [phone] [place] FOLLOW UP 08/04/2012 Patient Education: Patient Medication Summary Completed 08/04/2012 Appointment: Neela Hymna WPtel: [address] [place], [place] [phone] [facility] 06/01/2012 Patient Education: Patient Medication Summary Completed 06/01/2012 Appointment: Janet Jean Baptiste WPtel: [address] [place], [place] [phone] FOLLOW UP 05/29/2012 Patient Education: Patient Medication Summary Completed 05/29/2012 Visit Plan: pt states Dr. Hyman told h is to increase his Prozac dose while she was talking to her at [facility]. Discussed that pt. should not increase or decrease dosage without Dr's knowledge. Pt. will seek hearing test here in town at the hearing aid place on [address]. Discussed that ear pain is likely caused by sinus pressure. Pt. will notify if no improvement. 05/25/2012 Appointment: Janet Jean Baptiste WPtel: [address] [place] [address] ACUTE ILLNESS 05/25/2012 Patient Education: Patient Medication Summary Completed 05/25/2012 Visit Plan: Continue current meds Contin ue daily accuchecks but alternate times Increase fish oil to 3gm daily 04/07/2012 Appointment: Neela Hyman WPtel: [address] [place] [address] 04/06 FOLLOW UP 04/07/2012 Patient Education: Patient Medication Summary Completed 04/07/2012 Appointment: Janet Jean Baptiste WPtel: [address] [place], [place] [id number] ACUTE ILLNESS 12/16/2011 Patient Education: Patient Medication Summary Completed 12/16/2011 Visit Plan: Increase 12/03/2011 Appointment: Neela Hyman WPtel: [address] [place], [place] [phone] FOLLOW UP 12/03/2011 Patient Education: Patient Medication Summary Completed 12/03/2011 Visit Plan: Continue current meds Contin ue accuchecks 08/29/2011 Appointment: Neela Hyman WPtel: [address] [place], [place] [phone] FOLLOW UP 08/29/2011 Patient Education: Patient Medication Summary Completed 08/29/2011 Visit Plan: Continue current meds except restart zocor 05/30/2011 Appointment: Neela Hyman WPtel: [address] [place], [place] [phone] FOLLOW UP 05/30/2011 Patient Education: Patient Medication Summary Completed 05/30/2011 Visit Plan: Continue tennis elbow strap May go back to weight-lifing--light weigts every other day 01/29/2011 Appointment: Neela Hyman WPtel: [address] [place], [place] [id number] FOLLOW UP 01/29/2011 Patient Education: Patient Medication Summary Completed 01/29/2011 Visit Plan: Continue tennis elbow strap and anti-inflammatories 01/14/2011 Appointment: Neela Hyman WPtel: [address] [place], [place] [phone] FOLLOW UP 01/14/2011 Appointment: Janet Jean Baptiste WPtel: [address] [place], [place] [id number] NEW PATIENT 01/14/2011 Patient Education: Patient Medication Summary Completed 01/14/2011 Appointment: Neela Hyman WPtel: [address] [place], [place] [phone] FOLLOW UP 01/08/2011 Appointment: Neela Hyman WPtel: [address] [place], [place] [phone] FOLLOW UP 01/01/2011 Appointment: Neela Hyman WPtel: [address] [place], [place] [phone] UA 01/01/2011 Patient Education: Patient Medication Summary [...] given. 11/29/2010 Appointment: Janet Jean Baptiste WPtel: [address] [place] [address] ACUTE ILLNESS 11/29/2010 Patient Education: Patient Medication Summary Completed 11/29/2010 Visit Plan: Cont current meds Check CMP, Lipids, HbA1C 08/28/2010 Appointment: Neela Hyman WPtel: [address] [place] [address] FOLLOW UP 08/28/2010 Patient Education: Patient Medication Summary Completed 08/28/2010 Visit Plan: Cont current meds and accuch ecks Add Zocor 40mg q HS Check Lipids and HbA1C in 3mos 06/05/2010 Appointment: Neela Hyman WPtel: [address] [place] [address] FOLLOW UP 06/05/2010 Patient Education: Patient Medication Summary Completed 06/05/2010 Visit Plan: Check Lipids and HbA1C 02/05/2010 Appointment: Neela Hyman WPtel: [address] [place] [address] FOLLOW UP 02/05/2010 Patient Education: Patient Medication Summary Completed 02/05/2010 Visit Plan: HbA1C in 3mos. Continue Accu checks BID alternating times. Check HbA1C, CMP, Lipids 10/09/2009 Appointment: Neela Hyman WPtel: [address] [place] [address] FOLLOW UP 10/09/2009 Patient Education: Patient Medication Summary Completed 10/09/2009 Visit Plan: Saline nasal flushes prn. Ty lenol/Motrin prn headache. Notify if persists/symptoms worsening. 08/22/2009 Appointment: Neela Hyman WPtel: [address] [place] [address] ACUTE ILLNESS 08/22/2009 Patient Education: Patient Medication Summary Completed 08/22/2009 Referral: Aub[facility] Rand [facility] [phone] [id number] [place] Office will verfy his insurance then they will contact patient Completed Referral: Shahbaz Brennan [facility]el[facility] [address] [facility] [address] [id number] [place] Referral Completed Referral: Ion Levi [address] [id number] [place] Referral Appointment Requested Referral: Ion Levi [address] [id number] [place] Referral Appointment Requested Instructions Comment . [...] with it . Obtain EMGs done at [facility] from when fractured left arm Lab discussed [...] while she was talking to her at [facility]. Discussed that pt. should not increase or decrease dosage without Dr's knowledge. Pt. will seek hearing test here in town at the hearing aid place on [address]. Discussed that ear pain is likely caused [...]
[2019-12-09 09:17] LABS: BASOPHILS # (AUTO) 0.1 10^3/uL (0.0-0.1); BASOPHILS % (AUTO) 1 % (0-10); EOSINOPHILS # (AUTO) 0.3 10^3/uL (0.0-0.3); EOSINOPHILS % (AUTO) 4 % (0-10); HEMATOCRIT 33 % (40-54); HEMOGLOBIN 10.4 G/DL (13.3-17.7); LYMPHOCYTES # (AUTO) 0.6 X 10^3 (1.0-4.0); LYMPHOCYTES % (AUTO) 7 % (12-44); MEAN CORPUSCULAR HEMOGLOBIN 25 PG (25-34); MEAN CORPUSCULAR HGB CONC 31 G/DL (32-36); MEAN CORPUSCULAR VOLUME 81 FL (80-99); MEAN PLATELET VOLUME 9.5 FL (7.4-10.4); MONOCYTES # (AUTO) 0.7 X 10^3 (0.0-1.0); MONOCYTES % (AUTO) 8 % (0-12); NEUTROPHILS # (AUTO) 6.3 X 10^3 (1.8-7.8); NEUTROPHILS % (AUTO) 80 % (42-75); PLATELET COUNT 360 10^3/uL (130-400); RED CELL DISTRIBUTION WIDTH 18.6 % (10.0-14.5)
--- OUTSIDE RECORDS SUMMARY | 2019-12-09 09:17 | XMS REPORT | CCD ---
Author Author Michael Hyman D.O. Organization [facility] Address [address] [place] [address] Phone Care Team Providers Care Accounts Payable Technician Name Role Phone Neela Hyman D.O., PP Unavailable CCM Unavailable Summary Purpose Interface Exchange Insurance Providers Payer name Policy type / Coverage type Covered alliance party ID Effective Begin Date Effective End Date ABS FOR [employer] Commercial Insurance [id number] Unknown Family History Family History data not found Social History Social History Element Codes Description Effective Dates Marital status Unknown 05/30/[address]: 2416525 Former smoker quit 25 years ago 01/01/2011 [...] Fill Instructions Keflex 500 mg capsule RxNorm: 633618 1 Capsule(s) Oral three ti mes a day 07/06/2019 07/13/2019 Active Singulair 10 mg tablet RxNorm: 294210 TAKE ONE TABLET BY MOUTH EVERY EVENING 07/06/2019 01/02/2020 Active Reselected prescribe r from [facility] to [facility] Singulair 10 mg tablet RxNorm: 250073 TAKE ONE TABLET BY MOUTH EVERY EVENING 06/22/2019 07/05/2019 Inactive Reselected prescribe r from PEG MAHER to [facility] Zocor 40 mg tablet RxNorm: 680105 TAKE ONE TABLET BY M OUTH EVERY NIGHT AT BEDTIME 06/21/2019 11/17/2019 Active MagOx 400 mg (241.3 mg magnesium) tablet RxNorm: 077999 1 Table t(s) Oral QD 06/21/2019 08/20/2019 Active diltiazem ER 360 mg capsule,24 hr,extended release RxNorm: 8 51215 TAKE ONE CAPSULE BY MOUTH AT BEDTIME -REPLACES 300MG 05/17/2019 11/12/2019 Active MagOx 400 mg (241.3 mg magnesium) tablet RxNorm: 484303 1 Table t(s) Oral QD 04/26/2019 06/20/2019 Inactive Lasix 40 mg tablet RxNorm: 555911 40 MG PO DAILY 04/12/2019 No Stop Da te Active Benicar 40 mg tablet RxNorm: 166009 1 Tablet(s) Oral QD 03/29/2019 Active potassium chloride ER 20 mEq tablet,extended release RxNorm: 006495 1 Tablet(s) Oral two times a day 03/29/2019 06/27/2019 Inactive metformin 500 mg tablet RxNorm: 514514 2 Tablet(s) Oral two afshan es a day 03/29/2019 No Stop Date Active potassium chloride ER 20 mEq tablet,extended release RxNorm: 176299 1 Tablet(s) Oral QD 03/29/2019 03/28/2019 Inactive Benicar 40 mg tablet RxNorm: 934342 1 Tablet(s) Oral QD 03/29/2019 Inactive MagOx 400 mg (241.3 mg magnesium) tablet RxNorm: 025246 1 Table t(s) Oral QD 03/29/2019 04/25/2019 Inactive fenofibrate micronized 134 mg capsule RxNorm: 304416 TA KE ONE CAPSULE BY MOUTH EVERY DAY 03/05/2019 08/31/2019 Active duloxetine 60 mg capsule,delayed release RxNorm: 097639 1 Capsu le(s) PO QD 01/28/2019 07/26/2019 Active Trelegy Ellipta 100 mcg-62.5 mcg-25 mcg powder for inhalatio n RxNorm: 7948572 1 Puff(s) INH QD 01/06/2019 12/31/2019 Active 90 day supply prednisone 20 mg tablet RxNorm: 642687 1 Tablet(s) PO T ID for 3 days then 1 po BID for 3 days then 1 po daily for 3 days 01/05/2019 03/28/2019 Inacti ve metformin ER 1,000 mg tablet,extended release 24hr RxNorm: 1 308706 TAKE TWO TABLETS (1000MG) BY MOUTH TWO TIMES A DAY 12/22/2018 03/28/2019 Inacti ve Diflucan 100 mg tablet RxNorm: 713752 1 Tablet(s) PO QD 12/09/2018 Inactive albuterol sulfate 2.5 mg/3 mL (0.083 %) solution for n ebulization RxNorm: 785150 3 Milliliter(s) INH ONE VIAL VIA NEBULIZER EVERY 4 HOURS 019 07/21/2019 Active [AttnRPh: Saving apply/adjudicate RxGRP: SG20 RxBIN:[id number] RxPCN: ID#:[id number]] prednisone 20 mg tablet RxNorm: 215745 1 Tablet(s) PO B ID for 4 days then 1 po daily for 4 days 11/24/2018 01/04/2019 Inactive Trelegy Ellipta 100 mcg-62.5 mcg-25 mcg powder for inhalatio n RxNorm: 8540346 1 Puff(s) INH QD 10/27/2018 01/06/2019 Inactive 90 day supply metoprolol succinate ER 100 mg tablet,extended release 24 hr RxNorm: 103934 TAKE ONE TABLET BY MOUTH TWICE A DAY 10/13/2018 07/09/2019 Active diltiazem ER 360 mg capsule,24 hr,extended release RxNorm: 8 24821 TAKE ONE CAPSULE BY MOUTH AT BEDTIME -REPLACES 300MG 10/13/2018 04/10/2019 Inactive Trelegy Ellipta 100 mcg-62.5 mcg-25 mcg powder for inhalatio n RxNorm: 3854492 INHALE ONE PUFF ONCE DAILY 09/07/2018 10/27/2018 Inactive Levaquin 750 mg tablet RxNorm: 332975 1 Tablet(s) PO QD 09/07/2018 Inactive Levaquin 750 mg tablet RxNorm: 959267 1 Tablet(s) PO QD 09/07/2018 Inactive prednisone 20 mg tablet RxNorm: 555364 2 Tablet(s) PO QAM 08/13/2018 08/19/2018 Inactive Levaquin 500 mg tablet RxNorm: 174769 1 Tablet(s) PO QD 08/11/2018 Inactive fenofibrate micronized 134 mg capsule RxNorm: 515476 TA KE ONE CAPSULE BY MOUTH EVERY DAY 08/10/2018 02/05/2019 Inactive prednisone 20 mg tablet RxNorm: 199490 1 Tablet(s) PO BID 07/16/2018 07/20/2018 Inactive doxycycline hyclate 100 mg capsule RxNorm: 5947638 1 Capsule(s) PO BID 07/13/2018 07/22/2018 Inactive duloxetine 60 mg capsule,delayed release RxNorm: 270699 TAKE ONE CAPSULE BY MOUTH ONCE A DAY 07/08/2018 01/28/2019 Inactive Lasix 40 mg tablet RxNorm: 772043 1 TABLET(S) PO QAM 06/08/201809/05 Inactive potassium chloride ER 20 mEq tablet,extended release(p art/cryst) RxNorm: 4241894 1 TABLET(S) PO QD 06/08/2018 09/05/2018 Inactive metformin ER 1,000 mg tablet,extended release 24hr RxNorm: 1 773069 TAKE TWO TABLETS (1000MG) BY MOUTH TWO TIMES A DAY 06/01/2018 11/27/2018 Inacti ve Benicar HCT 40 mg-25 mg tablet RxNorm: 300130 TAKE ONE TABLET BY MOUTH ONCE DAILY 05/11/2018 03/28/2019 Inactive Zocor 40 mg tablet RxNorm: 915678 TAKE ONE TABLET BY M OUTH EVERY NIGHT AT BEDTIME 05/11/2018 06/20/2019 Inactive Trelegy Ellipta 100 mcg-62.5 mcg-25 mcg powder for inhalatio n RxNorm: 6829597 1 PUFF(S) INH QD 04/06/2018 07/04/2018 Inactive diltiazem ER 360 mg capsule,24 hr,extended release RxNorm: 8 26079 1 Capsule(s) PO QHS replaces 300mg dose 03/30/2018 09/25/2018 Inactive Trelegy Ellipta 100 mcg-62.5 mcg-25 mcg powder for inhalatio n RxNorm: 4688440 1 Puff(s) INH QD 02/24/2018 02/23/2018 Inactive Trelegy Ellipta 100 mcg-62.5 mcg-25 mcg powder for inhalatio n RxNorm: 3674055 1 Puff(s) INH QD 02/24/2018 02/23/2018 Inactive Trelegy Ellipta 100 mcg-62.5 mcg-25 mcg powder for inhalatio n RxNorm: 4852272 1 Puff(s) INH QD 02/24/2018 04/05/2018 Inactive Lasix 40 mg tablet RxNorm: 657864 1 Tablet(s) PO QAM 02/10/201803/11 Inactive potassium chloride ER 20 mEq tablet,extended release(p art/cryst) RxNorm: 5219044 1 Tablet(s) PO QD 02/10/2018 03/11/2018 Inactive fenofibrate micronized 134 mg capsule RxNorm: 949809 1 Capsule( s) PO QD 01/30/2018 07/28/2018 Inactive metoprolol succinate ER 100 mg tablet,extended release 24 hr RxNorm: 343796 TAKE ONE TABLET BY MOUTH TWICE A DAY 12/30/2017 09/25/2018 Inactive metformin ER 1,000 mg tablet,extended release 24hr RxNorm: 1 768182 1 Tablet(s) PO BID 11/17/2017 05/15/2018 Inactive [SAVINGS FOR NON -COVERED DRUGS -- BIN:801237, PCN: ASPROD1, Group: XXXXX, ID# [id number], Questions: . THIS IS NOT INSURANCE.] Benicar HCT 40 mg-25 mg tablet RxNorm: 107555 1 Tablet(s) PO QD 05/10/2018 Inactive [SAVINGS FOR NON-COVERED JESU GS -- BIN:909763, PCN: ASPROD1, Group: XXXXX, ID# [id number], Questions: . THIS IS NOT INSURANCE.] Bactroban 2 % topical cream RxNorm: 237199 Application TOP BID 10/2409/02/2018 Inactive clindamycin HCl 300 mg capsule RxNorm: 764569 2 Capsule(s) PO TID 0 11/05/2017 11/18/2017 Inactive duloxetine 60 mg capsule,delayed release RxNorm: 567238 Capsule(s) TAKE ONE CAPSULE BY MOUTH ONCE DAILY 09/24/2017 09/23/2017 Inactive triamcinolone acetonide 0.1 % topical ointment RxNorm: 0784672 1 TOP BID 09/09/2017 11/04/2017 Inactive Bactrim DS 800 mg-160 mg tablet RxNorm: 705349 1 Tablet(s) PO BID 0 08/07/2017 08/13/2017 Inactive metronidazole 500 mg tablet RxNorm: 383012 1 Tablet(s) PO BID 08/0708/13/2017 Inactive diltiazem ER 360 mg capsule,24 hr,extended release RxNorm: 8 00889 1 Capsule(s) PO QHS replaces 300mg dose 08/04/2017 01/30/2018 Inactive fenofibrate micronized 134 mg capsule RxNorm: 632464 1 Capsule( s) PO QD 07/21/2017 01/30/2018 Inactive Zocor 40 mg tablet RxNorm: 597235 1 Tablet(s) PO QHS 07/21/201705/10 Inactive GB duloxetine 60 mg capsule,delayed release RxNorm: 113189 Capsule(s) TAKE ONE CAPSULE BY MOUTH ONCE DAILY 06/24/2017 09/24/2017 Inactive Cleocin HCl 300 mg capsule RxNorm: 161850 2 Capsule(s) PO BID 06/0206/08/2017 Inactive acyclovir 800 mg tablet RxNorm: 662841 1 Tablet(s) PO 5x day 201706/08/2017 Inactive diltiazem ER 300 mg capsule,24 hr,extended release RxNorm: 8 71534 1 Capsule(s) PO QHS replaces 240mg dose 05/05/2017 08/03/2017 Inactive ipratropium-albuterol 0.5 mg-3 mg(2.5 mg base)/3 mL ne bulization soln RxNorm: 4545972 1 Unit Dose INH Q4H as needed 05/05/2017 01/04/2019 Inactive metformin ER 1,000 mg tablet,extended release 24hr RxNorm: 1 658290 1 Tablet(s) PO BID 04/28/2017 11/17/2017 Inactive [SAVINGS FOR NON -COVERED DRUGS -- BIN:939919, PCN: ASPROD1, Group: XXXXX, ID# [id number], Questions: . THIS IS NOT INSURANCE.] diltiazem ER (XR/XT) 240 mg capsule,extended release 2 4 hr, controlled RxNorm: 042699 TAKE ONE CAPSULE BY MOUTH EVERY DAY 04/15/2017 05/04/2017 Inact avani prednisone 20 mg tablet RxNorm: 486217 1 Tablet(s) PO QD 04/10/2017 1 06/14/2016 Inactive Breo Ellipta 200 mcg-25 mcg/dose powder for inhalation RxNor m: 2065335 1 Puff(s) INH QD 04/10/2017 02/09/2018 Inactive Breo Ellipta 200 mcg-25 mcg/dose powder for inhalation RxNor m: 9156943 1 Puff(s) INH QD 04/10/2017 04/09/2017 Inactive Levaquin 500 mg tablet RxNorm: 679262 1 Tablet(s) PO QD 04/10/2017 Inactive metoprolol succinate ER 100 mg tablet,extended release 24 hr RxNorm: 448845 TAKE ONE TABLET BY MOUTH TWICE A DAY 03/24/2017 12/18/2017 Inactive fenofibrate micronized 134 mg capsule RxNorm: 136437 1 Capsule( s) PO QD 01/16/2017 07/21/2017 Inactive Benicar HCT 40 mg-25 mg tablet RxNorm: 548656 1 Tablet(s) PO QD 11/17/2017 Inactive [SAVINGS FOR NON-COVERED JESU GS -- BIN:675646, PCN: ASPROD1, Group: XXXXX, ID# [id number], Questions: . THIS IS NOT INSURANCE.] metoprolol succinate ER 100 mg tablet,extended release 24 hr RxNorm: 691620 1 Tablet(s) PO BID 10/16/2016 03/23/2017 Inactive diltiazem ER (XR/XT) 240 mg capsule,extended release 2 4 hr, controlled RxNorm: 292574 1 Capsule(s) PO QD 10/16/2016 04/13/2017 Inactive [SAVINGS FOR NON- COVERED DRUGS -- BIN:957081, PCN: ASPROD1, Group: XXXXX, ID# [id number], Questions: . THIS IS NOT INSURANCE.] metformin ER 1,000 mg tablet,extended release 24hr RxNorm: 8 37454 1 Tablet(s) PO BID 10/16/2016 04/28/2017 Inactive [SAVINGS FOR NON -COVERED DRUGS -- BIN:527470, PCN: ASPROD1, Group: XXXXX, ID# [id number], Questions: . THIS IS NOT INSURANCE.] Zocor 40 mg tablet RxNorm: 670928 1 Tablet(s) PO QHS 10/16/201607/21 Inactive GB Singulair 10 mg tablet RxNorm: 089460 Tablet(s) 1 TABLET(S) PO QHS 08/27/2016 09/02/2018 Inactive prednisone 20 mg tablet RxNorm: 318405 1 Tablet(s) PO QD 08/27/2016 0 08/31/2016 Inactive ipratropium-albuterol 0.5 mg-3 mg(2.5 mg base)/3 mL ne bulization soln RxNorm: 9419695 1 Unit Dose INH Q4H as needed 08/27/2016 05/04/2017 Inactive metoprolol succinate ER 100 mg tablet,extended release 24 hr RxNorm: 912478 TAKE ONE TABLET BY MOUTH TWICE A DAY 08/05/2016 10/16/2016 Inactive duloxetine 60 mg capsule,delayed release RxNorm: 944495 TAKE ONE CAPSULE BY MOUTH ONCE DAILY 08/05/2016 06/24/2017 Inactive prednisone 20 mg tablet RxNorm: 200898 1 Tablet(s) PO QD 06/14/2016 0 06/18/2016 Inactive ipratropium-albuterol 0.5 mg-3 mg(2.5 mg base)/3 mL ne bulization soln RxNorm: 4463778 1 Unit Dose INH Q4H as needed 06/13/2016 08/26/2016 Inactive Levaquin 500 mg tablet RxNorm: 615053 1 Tablet(s) PO QD 06/13/2016 Inactive metoprolol succinate ER 100 mg tablet,extended release 24 hr RxNorm: 974484 1 Tablet(s) PO BID replaces 50mg dose 05/14/2016 07/12/2016 Inactive metoprolol succinate ER 50 mg tablet,extended release 24 hr RxNorm: 129980 1 Tablet(s) PO BID 04/29/2016 05/13/2016 Inactive prednisone 20 mg tablet RxNorm: 459495 1 Tablet(s) PO BID 04/22/2016 04/21/2016 Inactive prednisone 20 mg tablet RxNorm: 136682 1 Tablet(s) PO BID 04/22/2016 04/28/2016 Inactive Singulair 10 mg tablet RxNorm: 716752 Tablet(s) 1 TABLET(S) PO QHS 04/01/2016 08/26/2016 Inactive metoprolol succinate ER 25 mg tablet,extended release 24 hr RxNorm: 226686 1 Tablet(s) PO QHS for blood pressure 04/01/2016 05/13/2016 Inactive fenofibrate micronized 134 mg capsule RxNorm: 117481 TA KE ONE CAPSULE BY MOUTH DAILY 01/25/2016 01/16/2017 Inactive duloxetine 60 mg capsule,delayed release RxNorm: 264079 TAKE ONE CAPSULE BY MOUTH ONCE DAILY 01/25/2016 08/04/2016 Inactive Zocor 40 mg tablet RxNorm: 796347 TAKE ONE TABLET BY MOUTH AT B EDTIME 11/13/2015 10/16/2016 Inactive GB metformin ER 1,000 mg tablet,extended release 24hr RxNorm: 8 35440 1 Tablet(s) PO BID 10/26/2015 10/16/2016 Inactive [SAVINGS FOR NON -COVERED DRUGS -- BIN:568353, PCN: ASPROD1, Group: XXXXX, ID# [id number], Questions: . THIS IS NOT INSURANCE.] Benicar HCT 40 mg-25 mg tablet RxNorm: 727367 1 Tablet(s) PO QD 06/201511/11/2016 Inactive [SAVINGS FOR NON-COVERED JESU GS -- BIN:035730, PCN: ASPROD1, Group: XXXXX, ID# [id number], Questions: . THIS IS NOT INSURANCE.] diltiazem ER (XR/XT) 240 mg capsule,extended release,control led RxNorm: 592717 1 Capsule(s) PO QD 10/26/2015 10/15/2016 Inactive [SAVINGS FOR NO N-COVERED DRUGS -- BIN:860838, PCN: ASPROD1, Group: XXXXX, ID# [id number], Questions: . THIS IS NOT INSURANCE.] Singulair 10 mg tablet RxNorm: 037593 1 TABLET(S) PO QHS 09/18/2015 1 05/31/2015 Inactive Viagra 100 mg tablet RxNorm: 127689 1 Tablet(s) PO as needed 201511/23/2018 Inactive Singulair 10 mg tablet RxNorm: 529496 1 Tablet(s) PO QHS 08/16/2015 0 08/15/2015 Inactive Singulair 10 mg tablet RxNorm: 115617 1 Tablet(s) PO QHS 08/16/2015 0 09/14/2015 Inactive duloxetine 60 mg capsule,delayed release RxNorm: 928323 1 Capsule(s) PO QD replaces fluoxetine 08/14/2015 01/24/2016 Inactive ipratropium-albuterol 0.5 mg-3 mg(2.5 mg base)/3 mL ne bulization soln RxNorm: 6616752 1 Unit Dose INH Q4H as needed 08/14/2015 06/12/2016 Inactive prednisone 20 mg tablet RxNorm: 693297 Take 3 tabs PO o nce daily x 3 days, then 2 tabs PO once daily x 3 days and then 1 tab PO once daily x 3 days 08/09/2015 08/13/2015 Inactive Symbicort 160 mcg-4.5 mcg/actuation HFA aerosol inhaler RxNo rm: 1621835 2 Puff(s) INH BID 08/09/2015 08/13/2015 Inactive Zocor 40 mg tablet RxNorm: 498318 1 Tablet(s) PO QHS 05/23/201511/11 Inactive [AttnRPh: Saving apply/adjudicate RxGRP: SG20 RxBIN:[id number] RxPCN:HT ID#:[id number]] Benicar HCT 40 mg-25 mg tablet RxNorm: 030788 1 Tablet(s) PO QD 10/26/2015 Inactive [SAVINGS FOR NON-COVERED JESU GS -- BIN:633398, PCN: ASPROD1, Group: XXXXX, ID# [id number], Questions: . THIS IS NOT INSURANCE.] diltiazem ER (XR/XT) 240 mg capsule,extended release,control led RxNorm: 968962 1 Capsule(s) PO QD 04/24/2015 10/20/2015 Inactive [SAVINGS FOR NO N-COVERED DRUGS -- BIN:287587, PCN: ASPROD1, Group: XXXXX, ID# [id number], Questions: . THIS IS NOT INSURANCE.] fluoxetine 40 mg capsule RxNorm: 803676 1 Capsule(s) PO QD 04/24/20 15 08/13/2015 Inactive [SAVINGS FOR NON-COVERED JESU GS -- BIN:205482, PCN: ASPROD1, Group: XXXXX, ID# [id number], Questions: . THIS IS NOT INSURANCE.] Zocor 40 mg tablet RxNorm: 708470 TABLET(S) 1 TABLET(S) PO QHS 01/2505/23/2015 Inactive [AttnRPh: Saving apply/adjud icate RxGRP:SG20 RxBIN:[id number] RxPCN: ID#:[id number]] metformin ER 1,000 mg tablet,extended release 24hr RxNorm: 8 48037 1 TABLET(S) PO BID 01/29/2015 10/26/2015 Inactive [SAVINGS FOR NON -COVERED DRUGS -- BIN:137241, PCN: ASPROD1, Group: XXXXX, ID# [id number], Questions: . THIS IS NOT INSURANCE.] fenofibrate micronized 134 mg capsule RxNorm: 208243 1 CAPSULE( S) PO QD 01/23/2015 01/17/2016 Inactive fenofibrate micronized 134 mg capsule RxNorm: 560023 1 Capsule( s) PO QD 11/07/2014 01/22/2015 Inactive diltiazem ER (XR/XT) 240 mg capsule,extended release,control led RxNorm: 304743 1 Capsule(s) PO QD 10/24/2014 04/24/2015 Inactive [SAVINGS FOR NO N-COVERED DRUGS -- BIN:333763, PCN: ASPROD1, Group: XXXXX, ID# XXXXXXX, Questions: . THIS IS NOT INSURANCE.] Benicar HCT 40 mg-25 mg tablet RxNorm: 893141 1 Tablet(s) PO QD 05/201404/24/2015 Inactive [SAVINGS FOR NON-COVERED JESU GS -- BIN:857912, PCN: ASPROD1, Group: XXXXX, ID# [id number], Questions: . THIS IS NOT INSURANCE.] fluoxetine 40 mg capsule RxNorm: 013409 1 Capsule(s) PO QD 10/25/19 15 04/24/2015 Inactive [SAVINGS FOR NON-COVERED JESU GS -- BIN:213839, PCN: ASPROD1, Group: XXXXX, ID# [id number], Questions: . THIS IS NOT INSURANCE.] azithromycin 500 mg tablet RxNorm: 868368 1 Tablet(s) PO QD 015 09/27/2014 Inactive [SAVINGS FOR NON-COVERED JESU GS -- BIN:249865, PCN: ASPROD1, Group: XXXXX, ID# XXXXXXX, Questions: . THIS IS NOT INSURANCE.] albuterol sulfate 2.5 mg/3 mL (0.083 %) solution for n ebulization RxNorm: 731997 3 Milliliter(s) INH ONE VIAL VIA NEBULIZER EVERY 4 HOURS 015 11/19/2014 Inactive [AttnRPh: Saving apply/adjudicate RxGRP: SG20 RxBIN:[id number] RxPCN: ID#:[id number]] Zocor 40 mg tablet RxNorm: 420696 TABLET(S) 1 TABLET(S ) PO QHS 1 TABLET(S) PO QHS 09/04/2014 02/21/2015 Inactive [AttnRPh: Saving apply/adjudicate RxGRP:SG20 RxBIN:[id number] RxPCN: ID#:[id number]] metformin ER 1,000 mg tablet,extended release 24hr RxNorm: 8 94841 1 Tablet(s) PO BID 08/04/2014 01/28/2015 Inactive [SAVINGS FOR NON -COVERED DRUGS -- BIN:893819, PCN: ASPROD1, Group: XXXXX, ID# XXXXXXX, Questions: . THIS IS NOT INSURANCE.] Bromfed DM 2 mg-30 mg-10 mg/5 mL syrup RxNorm: 0692604 1 -2 Teaspoon(s) PO Q4H as needed for cough 06/10/2014 06/19/2014 Inactive [SAVINGS FOR UN INSURED PATIENTS -- BIN:809034, PCN: ASPROD1, Group: AME08, ID# [id number], Process claim through [employer], for questions: . THIS IS NOT INSURANCE.] Augmentin 875 mg-125 mg tablet RxNorm: 783378 1 Tablet(s) PO Q12H 0 06/10/2014 06/19/2014 Inactive [AttnRPh: Saving apply/adjud icate RxGRP:SG20 RxBIN:[id number] RxPCN:HT ID#:[id number]] Zocor 40 mg tablet RxNorm: 150720 Tablet(s) 1 TABLET(S ) PO QHS 1 TABLET(S) PO QHS 05/25/2014 08/22/2014 Inactive [AttnRPh: Saving apply/adjudicate RxGRP:SG20 RxBIN:[id number] RxPCN:HT ID#:[id number]] fluoxetine 40 mg capsule RxNorm: 905799 1 Capsule(s) PO QD 04/29/20 14 10/24/2014 Inactive [AttnRPh: Saving apply/adjud icate RxGRP:SG20 RxBIN:[id number] RxPCN:HT ID#:[id number]] diltiazem ER (XR/XT) 240 mg capsule,extended release,control led RxNorm: 897441 1 Capsule(s) PO QD 04/29/2014 10/24/2014 Inactive [AttnRPh: Shahzad g apply/adjudicate RxGRP:SG20 RxBIN:[id number] RxPCN:HT ID#:[id number]] Benicar HCT 40 mg-25 mg tablet RxNorm: 944202 1 Tablet(s) PO QD 09/201310/24/2014 Inactive [AttnRPh: Saving apply/adjud icate RxGRP:SG20 RxBIN:[id number] RxPCN:HT ID#:[id number]] Zocor 40 mg tablet RxNorm: 040872 1 TABLET(S) PO QHS 1 TABLET(S ) PO QHS 03/07/2014 05/25/2014 Inactive [AttnRPh: Saving chelsie ly/adjudicate RxGRP:SG20 RxBIN:[id number] RxPCN:HT ID#:[id number]] Zocor 40 mg tablet RxNorm: 081813 1 Tablet(s) PO QHS 1 TABLET(S ) PO QHS 12/06/2013 03/05/2014 Inactive [AttnRPh: Saving chelsie ly/adjudicate RxGRP:SG20 RxBIN:[id number] RxPCN:HT ID#:[id number]] diltiazem ER (XR/XT) 240 mg capsule,extended release,control led RxNorm: 642304 1 Capsule(s) PO QD 10/25/2013 04/22/2014 Inactive [AttnRPh: Savin g apply/adjudicate RxGRP:SG20 RxBIN:[id number] RxPCN:HT ID#:[id number]] fluoxetine 40 mg capsule RxNorm: 935627 1 Capsule(s) PO QD 10/26/19 14 04/22/2014 Inactive [AttnRPh: Saving apply/adjud icate RxGRP:SG20 RxBIN:[id number] RxPCN:HT ID#:[id number]] Zocor 40 mg tablet RxNorm: 760239 1 Tablet(s) PO QHS 1 TABLET(S ) PO QHS 09/13/2013 12/06/2013 Inactive metformin ER 1,000 mg tablet,extended release 24hr RxNorm: 8 59933 Tablet(s) PO TAKE 1 TABLET BY MOUTH TWICE DAILY (REPLACES 500MG DOSE) 07/26/201303/2015 Inactive diltiazem ER (XR/XT) 240 mg capsule,extended release,control led RxNorm: 876024 1 Capsule(s) PO QD 05/03/2013 10/25/2013 Inactive fluoxetine 40 mg capsule RxNorm: 634647 1 Capsule(s) PO QD 05/03/20 13 10/25/2013 Inactive Benicar HCT 40 mg-25 mg tablet RxNorm: 634961 1 Tablet(s) PO QD 01/201304/29/2014 Inactive Zocor 40 mg tablet RxNorm: 076755 1 Tablet(s) PO QHS 12/10/201209/13 Inactive fluoxetine 40 mg capsule RxNorm: 755935 1 Capsule(s) PO QD 11/10/19 13 05/03/2013 Inactive diltiazem ER (XR/XT) 240 mg capsule,extended release,control led RxNorm: 309743 1 Capsule(s) PO QD 11/09/2012 05/03/2013 Inactive Benicar HCT 40 mg-25 mg tablet RxNorm: 716388 1 Tablet(s) PO QD 05/03/2013 Inactive metformin ER 1,000 mg tablet,extended release 24hr RxNorm: 8 24036 Tablet(s) PO TAKE 1 TABLET BY MOUTH TWICE DAILY (REPLACES 500MG DOSE) 08/05/201206/2013 Inactive Zocor 40 mg tablet RxNorm: 021910 1 Tablet(s) PO QHS 06/15/201212/09 Inactive fluoxetine 40 mg capsule RxNorm: 943585 1 Capsule(s) PO QD 05/15/2011/08/2012 Inactive Neurontin 600 mg Tab RxNorm: 824284 1 Tablet(s) PO QHS 12/03/2011 Inactive metformin ER 1,000 mg tablet,extended release 24hr RxNorm: 8 26130 1 Tablet(s) PO BID replaces 500mg dose 12/03/2011 07/26/2013 Inactive Zocor 40 mg tablet RxNorm: 009794 1 Tablet(s) PO QHS 12/03/201106/15 Inactive fluoxetine 20 mg capsule RxNorm: 476670 1 Capsule(s) PO QD 12/03/19 12 05/24/2012 Inactive diltiazem ER (XR/XT) 240 mg capsule,extended release,control led RxNorm: 429706 1 Capsule(s) PO QD 11/15/2011 11/09/2012 Inactive Benicar HCT 40 mg-25 mg tablet RxNorm: 954422 1 Tablet(s) PO QD 02/16/2012 Inactive metformin ER 500 mg 24 hr Tab RxNorm: 446153 1 Tablet(s) PO BID 12/02/2011 Inactive Zocor 40 mg Tab RxNorm: 503489 1 Tablet(s) PO QHS 05/30/2011 11/25/19 12 Inactive fluoxetine 20 mg Cap RxNorm: 736087 1 Capsule(s) PO QD 05/28/2011 Inactive Neurontin 600 mg Tab RxNorm: 674990 1 Tablet(s) PO QHS 05/28/2011 Inactive Neurontin 600 mg Tab RxNorm: 908628 1 Tablet(s) PO QHS 02/22/201106/2011 Inactive Neurontin 600 mg Tab RxNorm: 765681 1 Tablet(s) PO QHS 01/14/2011 Inactive Neurontin 300 mg Cap RxNorm: 651637 1 Capsule(s) PO QHS 01/14/2011 Inactive Neurontin 600 mg Tab RxNorm: 743523 1 Tablet(s) PO QHS 01/14/2011 Inactive Medrol (Vipul) 4 mg Tabs in a Dose Pack RxNorm: 538701 Tablet(s) PO 0 01/02/2011 08/28/2011 Inactive as directed fluoxetine 20 mg Cap RxNorm: 380034 1 Capsule(s) PO QD 12/10/201006/2011 Inactive Zocor 40 mg Tab RxNorm: 363549 1 Tablet(s) PO QHS 12/03/2010 05/29/19 12 Inactive Neurontin 300 mg Cap RxNorm: 824140 1 Capsule(s) PO QHS 12/03/2010 Inactive Septra DS 800 mg-160 mg Tab RxNorm: 202153 1 Tablet(s) PO BID 11/2912/08/2010 Inactive diltiazem ER (XR/XT) 240 mg Continuous Release Cap RxNorm: 8 23465 1 Capsule(s) PO QD 11/20/2010 11/15/2011 Inactive Neurontin 300 mg Cap RxNorm: 145631 1 Capsule(s) PO QHS 11/06/2010 Inactive Neurontin 300 mg Cap RxNorm: 998834 1 Capsule(s) PO QHS 11/06/2010 Inactive Celebrex 200 mg Cap RxNorm: 589588 1 Capsule(s) PO BID 10/24/2010 Inactive fluoxetine 20 mg Cap RxNorm: 342281 1 Capsule(s) PO QD 06/07/201003/2011 Inactive Zocor 40 mg Tab RxNorm: 206839 1 Tablet(s) PO QHS 06/05/2010 12/02/19 11 Inactive Benicar HCT 40 mg-25 mg Tab RxNorm: 722070 1 Tablet(s) PO QD 200908/21/2011 Inactive Diltiazem 240 mg Continuous Release Cap RxNorm: 287768 1 Capsul e(s) PO QD 11/09/2009 09/02/2018 Inactive Avelox 400 mg Tab RxNorm: 989174 1 Tablet(s) PO QD 08/22/2009 010 Inactive ProAir HFA 90 mcg/actuation aerosol inhaler RxNorm: 483663 2 Puff(s) INH Q4H as needed No Start Date Active tramadol 50 mg tablet RxNorm: 205653 1-2 Tablet(s) PO TID as ne eded for pain No Start Date Active Tylenol Arthritis 650 mg Tab RxNorm: 2515409 2 Tablet(s) PO QD No Sta rt Date Active Celebrex 200 mg Cap RxNorm: 897461 1 Capsule(s) PO BID No Start Date 08/08/2015 Inactive Medrol (Vipul) 4 mg Tabs in a Dose Pack RxNorm: 436781 Tablet(s) PO N o Start Date 01/01/2011 Inactive as directed Promethazine-DM 6.25 mg-15 mg/5 mL Syrup RxNorm: 732574 1-2 Teaspoon(s) PO Q4H prn cough No Start Date 08/28/2011 Inactive Claritin 10 mg tablet RxNorm: 326684 1 Tablet(s) PO QD No Start Date 08/08/2015 Inactive [id number] Oral RxNorm: Oral No Start Da te 03/28/2019 Inactive Breo Ellipta 200 mcg-25 mcg/dose powder for inhalation RxNor m: 7125156 1 Puff(s) INH QD No Start Date 04/09/2017 Inactive metformin 500 mg Tab RxNorm: 789080 1 Tablet(s) PO QD No Start Date 0 08/17/2011 Inactive Diltiazem 240 mg Continuous Release Cap RxNorm: 184373 1 Capsul e(s) PO BID No Start Date 11/08/2009 Inactive fluoxetine 20 mg Cap RxNorm: 159995 1 Capsule(s) PO QD No Start Date 06/07/2010 Inactive Multivitamin & Mineral Formula Oral RxNorm: Oral No Start Da te 03/28/2019 Inactive Medrol (Vipul) 4 mg tablets in a dose pack RxNorm: 524854 Tablet(s) PO as directed No Start Date 05/28/2012 Inactive Fish Oil 1,000 mg Cap RxNorm: 1 Capsule(s) PO QD No Start Date 07/2018 Inactive Nexium 40 mg Cap RxNorm: 129568 1 Capsule(s) PO QD No Start Date 07/24 Inactive fluticasone 50 mcg/actuation nasal spray,suspension RxNorm: 3706674 2 [place] NASAL QD to each nostril No Start Date 08/03/2017 Inactive Viagra 100 mg tablet RxNorm: 269611 1 Tablet(s) PO as needed No Sta rt Date 09/17/2015 Inactive prednisone 20 mg tablet RxNorm: 426505 1 Tablet(s) PO B ID for 4 days then 1 po daily for 4 days No Start Date 11/23/2018 Inactive Benicar HCT 40 mg-25 mg Tab RxNorm: 316332 1 Tablet(s) PO QD No Sta rt [...] Date S ervice Location MICROALBUMIN URINE RANDOM 09744 MICRL MG/L 5.8 MG/L 03/2011 Unknown MICROALBUMIN URINE RANDOM 85730 XM.ALB/CRE 5.2 MG/GCR Unknown MICROALBUMIN URINE RANDOM 91054 CREAT MG/D 111 MG/DL 03/2011 Unknown MICROALBUMIN URINE RANDOM 37479 CRE/100 1.11 G/L 12/24 Unknown Procedures Procedure Codes Date FLU VACC PRSV FREE INC ANTIG 65 AND OLDER CPT-4: 86797 03/04/2019 ADMIN PNEUMOCOCCAL VACCINE CPT-4: G0009 03/04/2019 ADMIN INFLUENZA VIRUS VAC CPT-4: G0008 03/04/2019 FLU VACC PRSV FREE INC ANTIG 65 AND OLDER CPT-4: 58248 03/04/2019 PNEUMOCOCCAL VACC 23 [facility] IM CPT-4: 43876 03/04/2019 THER/PROPH/DIAG INJ SC/IM CPT-4: 86326 08/11/2018 TRIAMCINOLONE ACET INJ NOS CPT-4: J3301 08/11/2018 DEXAMETHASONE SODIUM PHOS CPT-4: J1100 08/11/2018 THER/PROPH/DIAG INJ SC/IM CPT-4: 74465 07/16/2018 METHYLPREDNISOLONE INJECTION CPT-4: J2930 07/16/2018 INFLUENZA ASSAY W/OPTIC CPT-4: 59618 07/16/2018 THER/PROPH/DIAG INJ SC/IM CPT-4: 90534 07/13/2018 TRIAMCINOLONE ACET INJ NOS CPT-4: J3301 07/13/2018 THER/PROPH/DIAG INJ SC/IM CPT-4: 71346 05/04/2018 METHYLPREDNISOLONE INJECTION CPT-4: J2930 05/04/2018 FLU VACC PRSV FREE INC ANTIG 65 AND OLDER CPT-4: 86870 02/10/2018 PNEUMOCOCCAL VACC 13 [facility] IM CPT-4: 46374 02/10/2018 ADMIN INFLUENZA VIRUS VAC CPT-4: G0008 02/10/2018 ADMIN PNEUMOCOCCAL VACCINE CPT-4: G0009 02/10/2018 THER/PROPH/DIAG INJ SC/IM CPT-4: 05980 09/09/2017 TRIAMCINOLONE ACET INJ NOS CPT-4: J3301 09/09/2017 ALBUTEROL NON-COMP UNIT CPT-4: J7613 04/10/2017 AIRWAY INHALATION TREATMENT CPT-4: 41234 04/10/2017 PRESCRIP TRANSMIT VIA ERX SY CPT-4: G8553 04/10/2017 FLU VACC PRSV FREE INC ANTIG 65 AND OLDER CPT-4: 99656 03/28/2017 ADMIN INFLUENZA VIRUS VAC CPT-4: G0008 03/28/2017 PRESCRIP TRANSMIT VIA ERX SY CPT-4: G8553 08/27/2016 PRESCRIP TRANSMIT VIA ERX SY CPT-4: G8553 06/14/2016 ALBUTEROL NON-COMP UNIT CPT-4: J7613 06/13/2016 AIRWAY INHALATION TREATMENT CPT-4: 26207 06/13/2016 PRESCRIP TRANSMIT VIA ERX SY CPT-4: [...] CPT-4: G8553 11/07/2014 THER/PROPH/DIAG INJ SC/IM CPT-4: 00222 09/21/2014 METHYLPREDNISOLONE INJECTION CPT-4: J2930 09/21/2014 PRESCRIP TRANSMIT VIA ERX SY CPT-4: G8553 09/21/2014 PRESCRIP TRANSMIT VIA ERX SY CPT-4: G8553 06/10/2014 URINALYSIS NONAUTO W/O SCOPE CPT-4: 71211 06/01/2012 PRESCRIP TRANSMIT VIA ERX SY CPT-4: G8553 05/25/2012 PRESCRIP TRANSMIT VIA ERX SY CPT-4: G8553 12/03/2011 CUR TOBACCO NON-USER CPT-4: G8457 05/30/2011 PRESCRIP TRANSMIT VIA ERX SY CPT-4: G8553 05/30/2011 URINALYSIS NONAUTO W/O SCOPE CPT-4: 66522 01/01/2011 URINE CULTURE/ COLONY COUNT CPT-4: 68825 01/01/2011 CUR TOBACCO NON-USER CPT-4: G8457 01/01/2011 [...] 1: 114/68 Code: 8480-6 BMI: 43.5 Code: 72241-2 Heart Rate 1: 52 bpm Height: 6'1" [...] 1: 136/72 Code: 8480-6 BMI: 42.7 Code: 22443-1 Heart Rate 1: 60 bpm Height: 6'1" Respiratory Rate: 22 bpm SpO2: 95% Tempera ture: 37.1 (C) / 98.7 (F) Weight: 324 lbs 02/10/2018 Blood Pressure 1: 146/78 Code: 8480-6 BMI: 42.4 Code: 07923-8 Heart Rate 1: 64 bpm Height: 6'1" Respiratory Rate: 22 bpm SpO2: 95% Tempera ture: 36.5 (C) / 97.7 (F) Weight: 321 lbs 11/05/2017 Blood Pressure 1: 128/84 Code: 8480-6 BMI: 42.9 Code: 95499-2 Heart Rate 1: 52 bpm Height: 6'1" Respiratory Rate: 22 bpm SpO2: 95% Tempera ture: 36.3 (C) / 97.3 (F) Weight: 325 lbs 09/09/2017 Blood Pressure 1: 162/90 Code: 8480-6 BMI: 42.5 Code: 07547-3 Heart Rate 1: 60 bpm Height: 6'1" Respiratory Rate: 24 bpm SpO2: 95% Tempera ture: 36.4 (C) / 97.6 (F) Weight: 322 lbs 08/07/2017 Blood Pressure 1: 152/90 Code: 8480-6 BMI: 42.2 Code: 54823-2 Heart Rate 1: 60 bpm Height: 6'1" Respiratory Rate: 26 bpm SpO2: 94% Tempera ture: 36.6 (C) / 97.8 (F) Weight: 320 lbs 08/04/2017 Blood Pressure 1: 150/86 Code: 8480-6 BMI: 42.7 Code: 75271-9 Heart Rate 1: 64 bpm Height: 6'1" Respiratory Rate: 20 bpm SpO2: 94% Tempera ture: 36.3 (C) / 97.3 (F) Weight: 324 lbs 06/04/2017 Blood Pressure 1: 164/90 Code: 8480-6 Heart Rate 1: 60 bpm Respiratory Rate: 24 bpm SpO2: 94% Temperature: 36.8 (C) / 98.3 (F) 06/02/2017 Blood Pressure 1: 162/80 Code: 8480-6 BMI: 42.9 Code: 85765-0 Heart Rate 1: 66 bpm Height: 6'1" Respiratory Rate: 22 bpm SpO2: 98% Tempera ture: 36.6 (C) / 97.8 (F) Weight: 325 lbs 05/05/2017 Blood Pressure 1: 164/94 Code: 8480-6 BMI: 41.4 Code: 00995-5 Heart Rate 1: 64 bpm Height: 6'1" Respiratory Rate: 22 bpm SpO2: 95% Tempera ture: 36.4 (C) / 97.5 (F) Weight: 314 lbs 04/10/2017 Blood Pressure 1: 136/78 Code: 8480-6 BMI: 42.0 Code: 84338-1 Heart Rate 1: 76 bpm Height: 6'1" Respiratory Rate: 24 bpm SpO2: 92% Tempera ture: 35.9 (C) / 96.7 (F) Weight: 318 lbs 02/03/2017 Blood Pressure 1: 134/82 Code: 8480-6 BMI: 41.7 Code: 86176-8 Heart Rate 1: 72 bpm Height: 6'1" Respiratory Rate: 24 bpm SpO2: 95% Tempera ture: 36.1 (C) / 97.0 (F) Weight: 316 lbs 10/30/2016 Blood Pressure 1: 126/74 Code: 8480-6 BMI: 41.3 Code: 91865-0 Heart Rate 1: 68 bpm Height: 6'1" Respiratory Rate: 20 bpm Temperature: 37 .1 (C) / 98.8 (F) Weight: 313 lbs 08/30/2016 Blood Pressure 1: 146/80 Code: 8480-6 BMI: 41.7 Code: 87058-8 Heart Rate 1: 64 bpm Height: 6'1" Respiratory Rate: 24 bpm SpO2: 94% Tempera ture: 36.6 (C) / 97.8 (F) Weight: 316 lbs 08/27/2016 Blood Pressure 1: 124/78 Code: 8480-6 Heart Rate 1: 66 bpm Height: 6'2" Respiratory Rate: 18 bpm SpO2: 94% Temperature: 36.6 (C) / 97.8 (F) Weight: 07/02/2016 Blood Pressure 1: 126/78 Code: 8480-6 BMI: 41.4 Code: 57758-2 Heart Rate 1: 68 bpm Height: 6'1" Respiratory Rate: 24 bpm SpO2: 94% Tempera ture: 36.6 (C) / 97.8 (F) Weight: 314 lbs 06/14/2016 Blood Pressure 1: 146/82 Code: 8480-6 Heart Rate 1: 80 bpm Respiratory Rate: 20 bpm SpO2: 95% Temperature: 37.3 (C) / 99.2 (F) 06/13/2016 Blood Pressure 1: 146/84 Code: 8480-6 BMI: 40.5 Code: 23177-8 Heart Rate 1: 66 bpm Height: 6'1" Respiratory Rate: 28 bpm SpO2: 93% Tempera ture: 35.8 (C) / 96.4 (F) Weight: 307 lbs 05/14/2016 Blood Pressure 1: 146/90 Code: 8480-6 BMI: 41.2 Code: 50077-9 Heart Rate 1: 68 bpm Height: 6'1" Respiratory Rate: 26 bpm Temperature: 36 .8 (C) / 98.2 (F) Weight: 312 lbs 04/29/2016 Blood Pressure 1: 152/90 Code: 8480-6 BMI: 41.0 Code: 30453-8 Heart Rate 1: 68 bpm Height: 6'1" Respiratory Rate: 26 bpm SpO2: 94% Tempera ture: 36.1 (C) / 96.9 (F) Weight: 311 lbs 04/22/2016 Blood Pressure 1: 152/94 Code: 8480-6 BMI: 40.9 Code: 04471-8 Heart Rate 1: 68 bpm Height: 6'1" Respiratory Rate: 24 bpm SpO2: 94% Tempera ture: 36.2 (C) / 97.2 (F) Weight: 310 lbs 04/01/2016 Blood Pressure 1: 156/78 Code: 8480-6 BMI: 40.6 Code: 60579-0 Heart Rate 1: 84 bpm Height: 6'1" Respiratory Rate: 22 bpm SpO2: 95% Tempera ture: 37.1 (C) / 98.7 (F) Weight: 308 lbs 11/30/2015 Blood Pressure 1: 142/80 Code: 8480-6 BMI: 40.5 Code: 71878-7 Heart Rate 1: 88 bpm Height: 6'1" Respiratory Rate: 22 bpm Temperature: 36 .2 (C) / 97.2 (F) Weight: 307 lbs 08/29/2015 Blood Pressure 1: 132/70 Code: 8480-6 BMI: 40.0 Code: 54306-0 Heart Rate 1: 76 bpm Height: 6'1" Respiratory Rate: 24 bpm SpO2: 96% Tempera ture: 36.7 (C) / 98.0 (F) Weight: 303 lbs 08/14/2015 Blood Pressure 1: 126/80 Code: 8480-6 BMI: 39.4 Code: 29726-1 Heart Rate 1: 92 bpm Height: 6'1" Respiratory Rate: 24 bpm SpO2: 94% Tempera ture: 37.8 (C) / 100.0 (F) Weight: 299 lbs 08/09/2015 Blood Pressure 1: 146/82 Code: 8480-6 Heart Rate 1: 82 bpm Respiratory Rate: 22 bpm SpO2: 93% Temperature: 35.9 (C) / 96.6 (F) We ight: 310 lbs 05/22/2015 Blood Pressure 1: 156/76 Code: 8480-6 BMI: 41.0 Code: 16592-9 Heart Rate 1: 100 bpm Height: 6'1" Respiratory Rate: 22 bpm Temperature: 37 .2 (C) / 98.9 (F) Weight: 311 lbs 02/13/2015 Blood Pressure 1: 166/90 Code: 8480-6 BMI: 41.2 Code: 08610-7 Heart Rate 1: 72 bpm Height: 6'1" Respiratory Rate: 24 bpm SpO2: 93% Tempera ture: 36.9 (C) / 98.5 (F) Weight: 312 lbs 11/07/2014 Blood Pressure 1: 134/70 Code: 8480-6 BMI: 40.5 Code: 23068-6 Heart Rate 1: 76 bpm Height: 6'1" Respiratory Rate: 24 bpm Temperature: 36 .9 (C) / 98.4 (F) Weight: 307 lbs 10/04/2014 Blood Pressure 1: 144/86 Code: 8480-6 BMI: 40.1 Code: 33858-0 Heart Rate 1: 76 bpm Height: 6'1" Respiratory Rate: 28 bpm Temperature: 36 .6 (C) / 97.9 (F) Weight: 304 lbs 09/22/2014 Blood Pressure 1: 142/80 Code: 8480-6 BMI: 40.0 Code: 70339-9 Heart Rate 1: 80 bpm Height: 6'1" Respiratory Rate: 22 bpm SpO2: 96% Tempera ture: 36.6 (C) / 97.8 (F) Weight: 303 lbs 09/21/2014 Blood Pressure 1: 160/66 Code: 8480-6 BMI: 40.0 Code: 09139-9 Heart Rate 1: 90 bpm Height: 6'1" Respiratory Rate: 26 bpm SpO2: 94% Tempera ture: 35.7 (C) / 96.2 (F) Weight: 303 lbs 06/28/2014 Blood Pressure 1: 132/80 Code: 8480-6 BMI: 41.0 Code: 11100-4 Heart Rate 1: 64 bpm Height: 6' Respiratory Rate: 20 bpm Temperature: 36 .7 (C) / 98.0 (F) Weight: 302 lbs 06/10/2014 Blood Pressure 1: 152/70 Code: 8480-6 BMI: 41.1 Code: 10719-5 Heart Rate 1: 76 bpm Height: 6' Respiratory Rate: 20 bpm Temperature: 36 .6 (C) / 97.8 (F) Weight: 303 lbs 03/29/2014 Blood Pressure 1: 132/78 Code: 8480-6 BMI: 40.6 Code: 48974-7 Heart Rate 1: 84 bpm Height: 6' Respiratory Rate: 22 bpm Temperature: 37 .1 (C) / 98.8 (F) Weight: 299 lbs 11/30/2013 Blood Pressure 1: 136/84 Code: 8480-6 BMI: 39.2 Code: 99199-2 Heart Rate 1: 76 bpm Height: 6' Respiratory Rate: 20 bpm Temperature: 36 .8 (C) / 98.2 (F) Weight: 289 lbs 08/03/2013 Blood Pressure 1: 144/80 Code: 8480-6 Heart Rate 1: 86 bpm Respiratory Rate: 20 bpm Temperature: 36.6 (C) / 97.8 (F) Weight: 296 lbs 04/06/2013 Blood Pressure 1: 142/90 Code: 8480-6 BMI: 40.3 Code: 37221-8 Heart Rate 1: 88 bpm Height: 6' Respiratory Rate: 20 bpm Temperature: 36 .6 (C) / 97.8 (F) Weight: 297 lbs 12/01/2012 Blood Pressure 1: 124/78 Code: 8480-6 BMI: 38.7 Code: 19839-0 Heart Rate 1: 76 bpm Height: 6' Respiratory Rate: 20 bpm Temperature: 37 .2 (C) / 98.9 (F) Weight: 285 lbs 08/04/2012 Blood Pressure 1: 128/80 Code: 8480-6 BMI: 38.2 Code: 60253-6 Heart Rate 1: 76 bpm Height: 6' Respiratory Rate: 20 bpm Temperature: 37 .0 (C) / 98.6 (F) Weight: 282 lbs 05/29/2012 Blood Pressure 1: 138/78 Code: 8480-6 BMI: 36.6 Code: 66021-8 Heart Rate 1: 66 bpm Height: 6' Temperature: 36.7 (C) / 98.1 (F) Weight: 270 lbs 05/25/2012 Blood Pressure 1: 128/72 Code: 8480-6 BMI: 39.9 Code: 60348-0 Heart Rate 1: 74 bpm Height: 6' Temperature: 36.1 (C) / 97.0 (F) Weight: 294 lbs 04/07/2012 Blood Pressure 1: 124/76 Code: 8480-6 BMI: 39.9 Code: 85111-1 Heart Rate 1: 72 bpm Height: 6' Respiratory Rate: 20 bpm Temperature: 36 .9 (C) / 98.5 (F) Weight: 294 lbs 12/16/2011 Blood Pressure 1: 128/80 Code: 8480-6 BMI: 40.8 Code: 95280-0 Heart Rate 1: 74 bpm Height: 6' Temperature: 36.6 (C) / 97.8 (F) Weight: 301 lbs 12/03/2011 Blood Pressure 1: 132/76 Code: 8480-6 BMI: 40.8 Code: 61501-1 Heart Rate 1: 68 bpm Height: 6' Respiratory Rate: 20 bpm Temperature: 36 .8 (C) / 98.2 (F) Weight: 301 lbs 08/29/2011 Blood Pressure 1: 140/68 Code: 8480-6 BMI: 40.8 Code: 17135-5 Heart Rate 1: 80 bpm Height: 6' Respiratory Rate: 20 bpm Temperature: 36 .4 (C) / 97.6 (F) Weight: 301 lbs 05/30/2011 Blood Pressure 1: 134/82 Code: 8480-6 BMI: 41.5 Code: 40835-1 Heart Rate 1: 76 bpm Height: 6' [...] 1: 126/72 Code: 8480-6 BMI: 41.2 Code: 07556-1 Heart Rate 1: 76 bpm Height: 6' [...] 1: 152/90 Code: 8480-6 BMI: 37.7 Code: 95154-5 Heart Rate 1: 92 bpm Height: 6'1" [...] dm Encounters Encounter Performer Location Codes Date ([id number]) OFFICE/OUTPATIENT VISIT EST Diagnosis: Sore on toe[ICD10: L98.9] Neela FRENCH [employer] CPT-4: 78705 07/06/2019 ([id number]) OFFICE/OUTPATIENT VISIT EST Diagnosis: Advanced chronic obstructive pulmonary disease[ICD10: J44.9] 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] Neela QURESHI [employer] [facility] [employer] CPT-4: 21933 05/10/2019 ([id number]) OFFICE/OUTPATIENT VISIT EST Diagnosis: Chronic obstructive pulmonary disease with (acute) exacerbation[ICD10: J44.1] Diagnosis: Hypokalemia[ICD10: E87.6] 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] Neela QURESHI [employer] [facility] [employer] CPT-4: 04183 03/29/2019 ([id number]) NURSE/OUTPATIENT VISIT EST Diagnosis: PNEUMOCOCCAL VACCINE[ICD10: Z23] [facility] [employer] [facility] CPT-4: 40238 03/04/2019 ([id number]) OFFICE/OUTPATIENT VISIT EST Diagnosis: Chronic obstructive pulmonary disease with (acute) exacerbation[ICD10: J44.1] Diagnosis: Other nonspecific abnormal finding of lung field[ICD10: R91.8] Neela ZHANG [employer] CPT-4: 70010 01/05/2019 ([id number]) OFFICE/OUTPATIENT VISIT EST Diagnosis: Solitary pulmonary nodule[ICD10: R91.1] 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] Diagnosis: Tinea corporis[ICD10: B35.4] Neela HYMAN [employer] [facility] CPT-4: 51841 12/09/2018 ([id number]) OFFICE/OUTPATIENT VISIT EST Diagnosis: COUGH[ICD10: R05] Diagnosis: Chronic obstructive pulmonary disease, unspecified[ICD10: J44.9] Diagnosis: Other disorders of lung[ICD10: J98.4] Diagnosis: Other nonspecific abnormal finding of lung field[ICD10: R91.8] Neela HYMAN [employer] [facility] CPT-4: 25934 11/24/2018 ([id number]) OFFICE/OUTPATIENT VISIT EST Diagnosis: Pneumonia, unspecified organism[ICD10: J18.9] Amita HYMAN [employer] [facility] CPT-4: 54744 09/16/2018 ([id number]) OFFICE/OUTPATIENT VISIT EST Diagnosis: Pneumonia, unspecified organism[ICD10: J18.9] Neela HYMAN [employer] [facility] CPT-4: 61664 09/03/2018 ([id number]) OFFICE/OUTPATIENT VISIT EST Diagnosis: Personal history of pneumonia (recurrent)[ICD10: Z87.01] Diagnosis: Cough[ICD10: R05] Diagnosis: Essential (primary) hypertension[ICD10: I10] Diagnosis: Type 2 diabetes mellitus with hyperglycemia[ICD10: E11.65] Amita ZHANGG[employer] CPT-4: 49293 08/27/2018 OFFICE/OUTPATIENT VISIT EST Diagnosis: Pneumonia, unspecified organism[ICD10: J18.9] Diagnosis: Chronic obstructive pulmonary disease with (acute) exacerbation[ICD10: J44.1] Diagnosis: Other specified symptoms and signs involving the circulatory and respiratory systems[ICD10: R09.89] Diagnosis: Essential (primary) hypertension[ICD10: I10] Amita HYMAN [employer] [facility] CPT-4: 77163 08/13/2018 OFFICE/OUTPATIENT VISIT EST Diagnosis: Pneumonia, unspecified organism[ICD10: J18.9] Diagnosis: Other specified symptoms and signs involving the circulatory and respiratory systems[ICD10: R09.89] Amita Santiago HYMAN [employer] [facility] CPT-4: 23926 08/11/2018 ([id number]) OFFICE/OUTPATIENT VISIT EST Diagnosis: Dyspnea, unspecified[ICD10: R06.00] Diagnosis: Chronic obstructive pulmonary disease with (acute) exacerbation[ICD10: J44.1] Diagnosis: Pneumonia, unspecified organism[ICD10: J18.9] Amita HYMAN [employer] [facility] CPT-4: 61544 07/16/2018 ([id number]) OFFICE/OUTPATIENT VISIT EST Diagnosis: Acute bronchitis due to other specified organisms[ICD10: J20.8] Diagnosis: Cough[ICD10: R05] Amita HYMAN [employer] [facility] T-4: 19720 07/13/2018 ([id number]) OFFICE/OUTPATIENT VISIT EST Diagnosis: Essential (primary) hypertension[ICD10: I10] Diagnosis: Chronic obstructive pulmonary disease, unspecified[ICD10: J44.9] Diagnosis: Type 2 diabetes mellitus with hyperglycemia[ICD10: E11.65] Diagnosis: Mixed hyperlipidemia[ICD10: E78.2] Neela MIRZARYAN STERLING Octavio ZHANG [employer] [facility] CPT-4: 77312 06/03/2018 ([id number]) OFFICE/OUTPATIENT VISIT EST Diagnosis: Chronic obstructive pulmonary disease, unspecified[ICD10: J44.9] Gely ZHANG [employer] [facility] CPT-4: 24978 05/04/2018 ([id number]) OFFICE/OUTPATIENT VISIT EST Diagnosis: Essential (primary) hypertension[ICD10: I10] Diagnosis: Localized edema[ICD10: R60.0] Neela MIRZALINE Octavio HYMAN [employer] [facility] CPT-4: 59653 03/03/2018 ([id number]) OFFICE/OUTPATIENT VISIT EST Diagnosis: Localized edema[ICD10: R60.0] Neela MIRZALINE Octavio HYMAN [employer] [facility] CPT-4: 46946 02/17/2018 ([id number]) OFFICE/OUTPATIENT VISIT EST Diagnosis: FLU VACCINE[ICD10: Z23] Diagnosis: PNEUMOCOCCAL VACCINE[ICD10: Z23] Diagnosis: Type 2 diabetes mellitus without complications[ICD10: E11.9] Diagnosis: Mixed hyperlipidemia[ICD10: E78.2] Diagnosis: Essential (primary) hypertension[ICD10: I10] Diagnosis: Localized edema[ICD10: R60.0] Diagnosis: Chronic obstructive pulmonary disease, unspecified[ICD10: J44.9] Neela HYMAN [employer] [facility] CPT-4: 45557 02/10/2018 ([id number]) OFFICE/OUTPATIENT VISIT EST Diagnosis: Type 2 diabetes mellitus with hyperglycemia[ICD10: E11.65] Diagnosis: Mixed hyperlipidemia[ICD10: E78.2] Diagnosis: Essential (primary) hypertension[ICD10: I10] Diagnosis: Chronic obstructive pulmonary disease, unspecified[ICD10: J44.9] Diagnosis: Cutaneous abscess of back [any part, except buttock][ICD10: L02.212] Neela HYMAN [employer] [facility] CPT-4: 65934 11/05/2017 ([id number]) OFFICE/OUTPATIENT VISIT EST Diagnosis: Allergic urticaria[ICD10: L50.0] Gely HYMAN [employer] [facility] CPT-4: 00189 09/09/2017 ([id number]) OFFICE/OUTPATIENT VISIT EST Diagnosis: Generalized enlarged lymph nodes[ICD10: R59.1] Diagnosis: Acute gastritis without bleeding[ICD10: K29.00] Gely HYMAN [employer] [facility] CPT-4: 37788 08/07/2017 ([id number]) OFFICE/OUTPATIENT VISIT EST Diagnosis: Type 2 diabetes mellitus without complications[ICD10: E11.9] Diagnosis: Mixed hyperlipidemia[ICD10: E78.2] Diagnosis: Essential (primary) hypertension[ICD10: I10] Neela ZHANG [employer] [facility] CPT-4: 39674 08/04/2017 ([id number]) OFFICE/OUTPATIENT VISIT EST Diagnosis: Zoster without complications[ICD10: B02.9] Diagnosis: Acute sialoadenitis[ICD10: K11.21] Gely FRIEND ASHER [facility] [facility] CPT-4: 42999 06/04/2017 OFFICE/OUTPATIENT VISIT EST Diagnosis: Zoster without complications[ICD10: B02.9] Diagnosis: Acute sialoadenitis[ICD10: K11.21] Gely HYMAN [employer] [facility] CPT-4: 75925 06/02/2017 ([id number]) OFFICE/OUTPATIENT VISIT EST Diagnosis: Type 2 diabetes mellitus without complications[ICD10: E11.9] Diagnosis: Mixed hyperlipidemia[ICD10: E78.2] Diagnosis: Essential (primary) hypertension[ICD10: I10] Diagnosis: Chronic obstructive pulmonary disease, unspecified[ICD10: J44.9] Neela HYMAN [facility] CPT-4: 72281 05/05/2017 OFFICE/OUTPATIENT VISIT EST Diagnosis: Chronic obstructive pulmonary disease with acute lower respiratory infection[ICD10: J44.0] Diagnosis: Impacted cerumen, bilateral[ICD10: H61.23] Gely HYMAN DO [facility] CPT-4: 58889 04/10/2017 ([id number]) OFFICE/OUTPATIENT VISIT EST Diagnosis: FLU VACCINE[ICD10: Z23] Neela BUI [employer] [facility] CPT-4: 13606 03/28/2017 ([id number]) OFFICE/OUTPATIENT VISIT EST Diagnosis: Type 2 diabetes mellitus without complications[ICD10: E11.9] Diagnosis: Mixed hyperlipidemia[ICD10: E78.2] Diagnosis: Essential (primary) hypertension[ICD10: I10] Diagnosis: Chronic obstructive pulmonary disease, unspecified[ICD10: J44.9] Neela HYMAN [employer] [facility] CPT-4: 86920 02/03/2017 ([id number]) OFFICE/OUTPATIENT VISIT EST Diagnosis: Type 2 diabetes mellitus with hyperglycemia[ICD10: E11.65] Diagnosis: Mixed hyperlipidemia[ICD10: E78.2] Diagnosis: Essential (primary) hypertension[ICD10: I10] Diagnosis: Chronic obstructive pulmonary disease, unspecified[ICD10: J44.9] Neela HYMAN DO [facility] CPT-4: 57468 10/30/2016 ([id number]) NO CHARGE Diagnosis: Acute bronchitis, unspecified[ICD10: J20.9] Sammi Najera NEELA Octavio HYMAN [employer] [facility] CPT-4: 65233 08/30/2016 ([id number]) OFFICE/OUTPATIENT VISIT EST Diagnosis: Acute bronchitis, unspecified[ICD10: J20.9] Diagnosis: Other seasonal allergic rhinitis[ICD10: J30.2] Sammi HYMAN [employer] [facility] CPT-4: 25555 08/27/2016 ([id number]) OFFICE/OUTPATIENT VISIT EST Diagnosis: Type 2 diabetes mellitus without complications[ICD10: E11.9] Diagnosis: Mixed hyperlipidemia[ICD10: E78.2] Diagnosis: Essential (primary) hypertension[ICD10: I10] Neela HYMAN [employer] [facility] CPT-4: 67643 07/02/2016 ([id number]) OFFICE/OUTPATIENT VISIT EST Diagnosis: Acute bronchitis, unspecified[ICD10: J20.9] Sammi HYMAN DO [facility] CPT-4: 25537 06/14/2016 ([id number]) OFFICE/OUTPATIENT VISIT EST Diagnosis: Acute bronchitis, unspecified[ICD10: J20.9] Sammi HYMAN [employer] [facility] CPT-4: 18135 06/13/2016 ([id number]) OFFICE/OUTPATIENT VISIT EST Diagnosis: Essential (primary) hypertension[ICD10: I10] Neela HYMAN [employer] [facility] CPT-4: 21273 05/14/2016 ([id number]) OFFICE/OUTPATIENT VISIT EST Diagnosis: Essential (primary) hypertension[ICD10: I10] Neela HYMAN DO [facility] CPT-4: 34399 04/29/2016 ([id number]) OFFICE/OUTPATIENT VISIT EST Diagnosis: Unspecified abdominal pain[ICD10: R10.9] Diagnosis: Left lower quadrant pain[ICD10: R10.32] Diagnosis: Left upper quadrant pain[ICD10: R10.12] Diagnosis: Essential (primary) hypertension[ICD10: I10] Neela HYMAN DO [facility] CPT-4: 21057 04/22/2016 ([id number]) OFFICE/OUTPATIENT VISIT EST Diagnosis: Type 2 diabetes mellitus without complications[ICD10: E11.9] Diagnosis: Mixed hyperlipidemia[ICD10: E78.2] Diagnosis: Essential (primary) hypertension[ICD10: I10] Neela HYMAN DO [facility] CPT-4: 03715 04/01/2016 ([id number]) OFFICE/OUTPATIENT VISIT EST Diagnosis: Type 2 diabetes mellitus with hyperglycemia[ICD10: E11.65] Diagnosis: Mixed hyperlipidemia[ICD10: E78.2] Diagnosis: Essential (primary) hypertension[ICD10: I10] Neela HYMAN DO [facility] CPT-4: 59088 11/30/2015 ([id number]) OFFICE/OUTPATIENT VISIT EST Diagnosis: Type 2 diabetes mellitus with diabetic neuropathy, unspecified[ICD10: E11.40] Diagnosis: Essential (primary) hypertension[ICD10: I10] Diagnosis: Mixed hyperlipidemia[ICD10: E78.2] Neelasabina Zhanginna RONNA ASHER HYMAN DO [facility] CPT-4: 14247 08/29/2015 ([id number]) OFFICE/OUTPATIENT VISIT EST Diagnosis: COUGH[ICD10: R05] Diagnosis: Wheezing[ICD10: R06.2] Diagnosis: Type 2 diabetes mellitus with diabetic neuropathy, unspecified[ICD10: E11.40] Neela HYMAN DO [facility] CPT-4: 69655 08/14/2015 ([id number]) OFFICE/OUTPATIENT VISIT EST Diagnosis: Other seasonal allergic rhinitis[ICD10: J30.2] Diagnosis: Dyspnea, unspecified[ICD10: R06.00] Diagnosis: Wheezing[ICD10: R06.2] Sammi Najera NEELA HYMAN DO [facility] CPT-4: 60918 08/09/2015 ([id number]) OFFICE/OUTPATIENT VISIT EST Diagnosis: Essential (primary) hypertension[ICD10: I10] Diagnosis: Type 2 diabetes mellitus with hyperglycemia[ICD10: E11.65] Diagnosis: Mixed hyperlipidemia[ICD10: E78.2] Neela Orendinna ANNJYOTIRYAN HYMAN DO [facility] CPT-4: 17550 05/22/2015 ([id number]) OFFICE/OUTPATIENT VISIT EST Diagnosis: DM W/O COMPLICATION TYPE II[ICD9: 250.00] Diagnosis: - I - HYPERTENSION[ICD9: 401.9] Diagnosis: - I - HYPERLIPIDEMIA NEC/NOS[ICD9: 272.4] Diagnosis: Left hand paresthesia[ICD9: 782.0] Neela Yenni FRIEND ASHER Octavio ZHANG [employer] [facility] CPT-4: 23163 02/13/2015 ([id number]) OFFICE/OUTPATIENT VISIT EST Diagnosis: HYPERLIPIDEMIA NEC/NOS[ICD9: 272.4] Diagnosis: DM W/O COMPLICATION TYPE II[ICD9: 250.00] [facility] 26723 11/07/2014 ([id number]) OFFICE/OUTPATIENT VISIT EST Diagnosis: ALLERGIC RHINITIS[ICD9: 477.9] Diagnosis: WHEEZING[ICD9: 786.07] Neela Duarte [employer] [facility] CPT-4: 34628 10/04/2014 ([id number]) OFFICE/OUTPATIENT VISIT EST Diagnosis: BRONCHITIS, ACUTE[ICD9: 466.0] Diagnosis: WHEEZING[ICD9: 786.07] Loren Duarte [employer] [facility] CPT-4: 42306 09/22/2014 ([id number]) OFFICE/OUTPATIENT VISIT EST Diagnosis: DYSPNEA[ICD9: 786.09] Diagnosis: WHEEZING[ICD9: 786.07] Diagnosis: Arrhythmia[ICD9: 427.9] Loren [facility] CPT-4: 83702 09/21/2014 ([id number]) OFFICE/OUTPATIENT VISIT EST Diagnosis: DM W/O COMPLICATION TYPE II, 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] Diagnosis: - I - HYPERLIPIDEMIA NEC/NOS[ICD9: 272.4] Diagnosis: - I - HYPERTENSION[ICD9: 401.9] Neela MIRZALINE Octavio [facility] CPT-4: 72318 06/28/2014 OFFICE/OUTPATIENT VISIT EST Diagnosis: SINUSITIS, ACUTE[ICD9: 461.9] Diagnosis: OTITIS MEDIA NOS[ICD9: 382.9] Sarah Sunshine NEELA Octavio [facility] CPT-4: 75646 06/10/2014 ([id number]) OFFICE/OUTPATIENT VISIT EST Diagnosis: DM W/O COMPLICATION TYPE II[ICD9: 250.00] Diagnosis: - I - HYPERLIPIDEMIA NEC/NOS[ICD9: 272.4] Diagnosis: - I - HYPERTENSION[ICD9: 401.9] Neela HYMAN [facility] CPT-4: 95148 03/29/2014 ([id number]) OFFICE/OUTPATIENT VISIT EST Diagnosis: DM W/O COMPLICATION TYPE II[ICD9: 250.00] Diagnosis: - I - HYPERTENSION[ICD9: 401.9] Diagnosis: - I - HYPERLIPIDEMIA NEC/NOS[ICD9: 272.4] Diagnosis: Hand lesion[ICD9: 709.9] Neela MADRIGAL [facility] CPT-4: 73708 11/30/2013 ([id number]) OFFICE/OUTPATIENT VISIT EST Diagnosis: DM W/O COMPLICATION TYPE II[ICD9: 250.00] Diagnosis: HYPERLIPIDEMIA NEC/NOS[ICD9: 272.4] Diagnosis: HYPERTENSION[ICD9: 401.9] Neela VASQUEZ [facility] CPT-4: 68167 08/03/2013 ([id number]) OFFICE/OUTPATIENT VISIT EST Diagnosis: DM W/O COMPLICATION TYPE II, 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] Diagnosis: HYPERTENSION[ICD9: 401.9] Diagnosis: HYPERLIPIDEMIA NEC/NOS[ICD9: 272.4] Neela HYMAN [facility] CPT-4: 23255 04/06/2013 ([id number]) OFFICE/OUTPATIENT VISIT EST Diagnosis: DM W/O COMPLICATION TYPE II[ICD9: 250.00] Diagnosis: HYPERLIPIDEMIA NEC/NOS[ICD9: 272.4] Diagnosis: HYPERTENSION[ICD9: 401.9] Neela VASQUEZ [facility] CPT-4: 72961 12/01/2012 ([id number]) OFFICE/OUTPATIENT VISIT EST Diagnosis: DM W/O COMPLICATION TYPE II[ICD9: 250.00] Diagnosis: HYPERTENSION[ICD9: 401.9] Diagnosis: HYPERLIPIDEMIA NEC/NOS[ICD9: 272.4] Neela HYMAN [facility] CPT-4: 76441 08/04/2012 ([id number]) OFFICE/OUTPATIENT VISIT EST Diagnosis: URINARY FREQUENCY[ICD9: 788.41] Neela HYMAN [facility] CPT-4: 85045 06/01/2012 OFFICE/OUTPATIENT VISIT EST Diagnosis: Agitation[ICD9: 307.9] Diagnosis: Frequent urination[ICD9: 788.41] Janet Jean Baptiste NEELA JulissaMendez YENNI [facility] CPT-4: 52342 05/29/2012 OFFICE/OUTPATIENT VISIT EST Diagnosis: SINUSITIS, ACUTE[ICD9: 461.9] Diagnosis: OTALGIA[ICD9: 388.70] Neela Sergeushainna MIRZANEELA Octavio [facility] CPT-4: 11887 05/25/2012 OFFICE/OUTPATIENT VISIT EST Diagnosis: DM W/O COMPLICATION TYPE II, 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] Diagnosis: HYPERTENSION[ICD9: 401.9] Diagnosis: HYPERLIPIDEMIA NEC/NOS[ICD9: 272.4] Neela Sergeushainna ANNJUAN CARLOS DARLINE [facility] CPT-4: 87985 04/07/2012 OFFICE/OUTPATIENT VISIT EST Diagnosis: FINGER INJURY[ICD9: 959.5] Janet Markel MURILLO [facility]vaio [facility] CPT-[facility]: 33625 12/16/2011 ([id number]) OFFICE/OUTPATIENT VISIT EST Diagnosis: DM W/O COMPLICATION TYPE II, 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] Diagnosis: HYPERTENSION[ICD9: 401.9] Diagnosis: HYPERLIPIDEMIA NEC/NOS[ICD9: 272.4] Neela Zhanginna ANNJUAN CARLOS DARLINE [facility] CPT-4: 50506 12/03/2011 ([id number]) OFFICE/OUTPATIENT VISIT EST Diagnosis: DM W/O COMPLICATION TYPE II[ICD9: 250.00] Diagnosis: HYPERLIPIDEMIA NEC/NOS[ICD9: 272.4] Diagnosis: HYPERTENSION[ICD9: 401.9] Neela MURILLO JulissaMendez SERGE VASQUEZ [facility] CPT-4: 99544 08/29/2011 OFFICE/OUTPATIENT VISIT EST Diagnosis: DM W/O COMPLICATION TYPE II[ICD9: 250.00] Diagnosis: HYPERLIPIDEMIA NEC/NOS[ICD9: 272.4] Diagnosis: HYPERTENSION[ICD9: 401.9] Neela MURILLO JulissaMendez SERGE VASQUEZ [facility] CPT-4: 08036 05/30/2011 OFFICE/OUTPATIENT VISIT EST Diagnosis: SKIN SENSATION DISTURB[ICD9: 782.0] Neela [facility] CPT-4: 36864 01/29/2011 OFFICE/OUTPATIENT VISIT EST Diagnosis: SKIN SENSATION DISTURB[ICD9: 782.0] Neela [facility] CPT-4: 45373 01/14/2011 OFFICE/OUTPATIENT VISIT EST Neela [facility] CPT- 4: 95028 01/01/2011 OFFICE/OUTPATIENT VISIT EST Neela [facility] CPT- 4: 24042 11/29/2010 ([id number]) OFFICE/OUTPATIENT VISIT EST Neela HORAN SMendez [facility] CPT-4: 39264 08/28/2010 ([id number]) OFFICE/OUTPATIENT VISIT, EST Neela WILDE SMendez [facility] CPT-4: 51269 06/05/2010 ([id number]) OFFICE/OUTPATIENT VISIT, EST Neela [facility] CPT-4: 48292 02/05/2010 ([id number]) OFFICE/OUTPATIENT VISIT, EST Neela [facility] CPT-4: 78282 10/09/2009 ([id number]) OFFICE/OUTPATIENT VISIT, EST Neela WILDE SMendez [facility] CPT-4: 34396 08/22/2009 Plan of Care Planned Activity Notes Codes Status Date Visit Diagnosis Plan: Sore on toe Discussion: Keep farhat an/dry Keflex Notify if worsens ICD-9 : 709.9 ICD-10 : L98.9 07/06/2019 Patient Education: Makenzieir- [employer]audia Blue [id number] https://www.Opposing Views.Long Tail/samplemd/resources/getResource/61/5qh218ll-81i4-2f30-04 Completed 07/06/2019 Visit Diagnosis Plan: Lymphoma involving lung Discussi on: Doing weekly lab and chemo ICD-9 : 202.82 ICD-10 : C85.99 05/10/2019 Visit Diagnosis Plan: Advanced chronic obstructive pul monary disease Discussion: Continue oxygen and pulmonary rehab Follow Up: 3 months ICD-9 : 496 ICD-10 : J44.9 05/10/2019 Appointment: Neela Hymantel: [address] [place], [place] [phone] FOLLOW UP 05/10/2019 Appointment: Neela Hymantel: [address] [place] [address] he called 04/14/19-- he was at physical [...] : J44.1 03/29/2019 Appointment: Neela Hyman WPtel: [address] [place], [place] [phone] Hospital Follow Up 03/29/2019 Appointment: Neela Hyman WPtel: [address] [place], [place] [phone] [place] INJECTION 03/04/2019 Visit Diagnosis Plan: Other nonspecific abnormal findi ng of lung field Discussion: Referral to pulmonology--will likely need bronchoscopy--path results discussed ICD-9 : 786.6 ICD-10 : R91.8 01/05/2019 Visit Diagnosis Plan: Chronic obstructiv e pulmonary disease with (acute) exacerbation Discussion: Increase SVNS with duoneb to QID Prednisone taper ICD-9 : 491.21 ICD-10 : J44.1 01/05/2019 Appointment: Neela Hyman WPtel: [address] [place], [place] [phone] [place] FOLLOW UP 01/05/2019 Patient Education: prednisone- Opt[employer]RX Coupon [phone] https://www.inSelly/samplemd/resources/getResource/61/a8xb4804-898p-0j05-bi Completed 01/05/2019 Care Plan: Referral Order SNOMED-CT : 30 [id number] Pending 01/05/2019 Appointment: Neela Hyman WPtel: [address] [place], [place] [phone] [place] CANCELED 12/21/2018 Visit Diagnosis Plan: Solitary pulmonary nodule Discus esmer: CT guided needle biopsy of RUL lung mass ICD-9 : 793.11 ICD-10 : R91.1 12/09/2018 Visit Diagnosis Plan: Tinea corporis Discussion: Diflu can--hold simvastatin and fenofibrate while taking ICD-9 : 110.5 ICD-10 : B35.4 12/09/2018 Appointment: Neela Hyman WPtel: [address] [place] [address] [place] FOLLOW UP 12/09/2018 Appointment: Gely Harp [address] [place] [address] NO SHOW 12/01/2018 Visit Diagnosis Plan: Other [...] : J44.9 11/24/2018 Appointment: Neela Hyman WPtel: [address] [place], [place] [address] US FOLLOW UP 11/24/2018 Care Plan: PET IMAGE FULL BODY LOINC : 4 2711-2 Pending 11/24/2018 Appointment: Neela [facility]el[facility] [phone] [facility] [place] Consult 09/21/2018 Visit Diagnosis Plan: Pneumonia, unspecified organism Discussion: Patient clinically improved. Recent CT scan from 09/07 showed unresolved right upper lobe pneumonia. Finished another 7 days of levaquin. Will repeat CBC early next week. [facility] 4 weeks. Patient states understanding. ICD-9 : 486 ICD-10 : J18.9 09/16/2018 Appointment: Amita Henderson [facility] [place] [phone] FOLLOW UP 09/16/2018 Visit Diagnosis Plan: Pneumonia, unspecified organism Discussion: Clinically patient feels and looks much better but need CT scan of chest due to ongoing round pneumonia in association with his known lymphoma ICD-9 : 486 ICD-10 : J18.9 09/03/2018 Appointment: Neela Hyman WPtel: [facility]0 [facility] FOLLOW UP 09/03/2018 Care Plan: CT THORAX [...] : I10 08/27/2018 Appointment: Amita Henderson [address] [id number] 08/27/2018 Visit Diagnosis Plan: Other [...] ICD-10 : J18.9 08/13/2018 Appointment: Amita Henderson [facility] [place] [id number] [place] FOLLOW UP 08/13/2018 Appointment: Amita Henderson [facility] [place] [id number] CANCELED 08/13/2018 Patient Education: prednisone- Opt[employer]RX Coupon [id number] https://www.inSelly/sampleIframe Apps/resources/getResource/61/pc44sz4g-3r72-7ub6-0m Completed 08/13/2018 Visit Diagnosis Plan: Other specified [...] : J18.9 08/11/2018 Appointment: Amita Henderson [address] [place] [address] ACUTE ILLNESS 08/11/2018 Care Plan: CHEST X-RAY 2VW FRONTAL&LATL LOINC : 02865-8 Pending 07/20/2018 Visit Diagnosis Plan: Dyspnea, unspecified Discussion: CXR- to be completed at the hospital. Will call with results and any adjustments in plan. Solumedrol 125 administered in clinic Prednisone 20 mg BID x 5 days- start tomorrow ICD-9 : 786.09 ICD-10 : R06.00 07/16/2018 Appointment: Amita Henderson [address] [place] [address] ACUTE ILLNESS 07/16/2018 Patient Education: prednisone- [employer] Coupon [id number] https://www.inSelly/samplemd/resources/getResource/61/50y2d8ju-jv86-5dy6-p8 Completed 07/16/2018 Visit Diagnosis Plan: Acute bronchitis due to other sp ecified organisms Discussion: Kenalog 40 mg IM administered in clinic. Doxycycline called into [facility]. Take as directed. Continue nebulizer and Trelegy. Follow up if symptoms are not improving with treatment regimen. Patient states understanding of all instruction. ICD-9 : 466.0 ICD-10 : J20.8 07/13/2018 Appointment: Amita Henderson [address] [place] [address] ACUTE ILLNESS 07/13/2018 Patient Education: doxycycline hyclate- OptimizeRX Cou saritha [id number] https://www.Opposing Views.com/samplemd/resources/getResource/61/1z911l22-0z2t-2014-5m Completed 07/13/2018 Care Plan: [place] : [address]-6 Pending 07/13/2018 Care Plan: CBC Pending 07/13/2018 Care Plan: A1C HPLC LOINC : 37495-7 Pending 07/13/2018 Visit Diagnosis Plan: Mixed hyperlipidemia [...] : J44.9 06/03/2018 Appointment: Neela Hyman WPtel: [address] [place] [address] [place] FOLLOW UP 06/03/2018 Visit Diagnosis Plan: [...] : J44.9 05/04/2018 Appointment: Gely Harp [address] [place] [address] ACUTE ILLNESS 05/04/2018 Visit Diagnosis Plan: Localized edema Discussion: Cont inue lasix and potassium at every other day Recheck lab and fwup in 3mos Follow Up: 3 months ICD-9 : 782.3 ICD-10 : R60.0 03/03/2018 Appointment: Neela Hyman WPtel: [address] [place] [address] [place] FOLLOW UP 03/03/2018 Patient Education: Patient Medication Summary Completed 03/03/2018 Visit Diagnosis Plan: Localized edema Discussion: Finch ge lasix and potassium to every other day Check Chem 7 in 2 weeks and fwup ICD-9 : 782.3 ICD-10 : R60.0 02/17/2018 Appointment: Neela Hyman WPtel: [address] [place] [address] [place] FOLLOW UP 02/17/2018 Patient Education: Patient [...] E78.2 02/10/2018 Appointment: Neela [facility]el[facility] [phone] [facility] [facility] 02/10/2018 Patient Education: Patient Medication [...] Appointment: Neela Hyman WPtel: [phone] [facility] FOLLOW UP 11/05/2017 Patient Education: Patient Medication Summary Completed 11/05/2017 Patient Education: Patient Medication Summary Completed 11/03/2017 Care Plan: COM[place] : [address]-5 Pending 11/03/2017 Care Plan: LIPID PANEL LOINC : 10499-3 Pending 11/03/2017 Care Plan: CBC Pending 11/03/2017 Care Plan: A1C HPLC LOINC : 34551-2 Pending 11/03/2017 Visit Diagnosis Plan: Allergic urticaria [...] : L50.0 09/09/2017 [facility] [facility] 09/09/2017 Patient Education: Patient [...] : K29.00 08/07/2017 Appointment: [facility]p [address] [facility] [facility] Follow Up 08/07/2017 Patient Education: Patient Medication Summary Completed 08/07/2017 Visit Diagnosis Plan: Essential (primary) hypertension Discussion: Increase Cardizem CD to 360mg daily ICD-9 : 401.9 ICD-10 : I10 08/04/2017 Visit Diagnosis Plan: Type 2 diabetes mellitus without complications Discussion: Accuchecks daily Lab discussed Continue current meds ICD-9 : 250.00 ICD-10 : E11.9 08/04/2017 Appointment: Neela Hyman WPtel: [phone] [facility] FOLLOW UP 08/04/2017 Patient Education: Patient Medication Summary Completed 08/04/2017 Patient Education: Patient Medication Summary Completed 07/31/2017 Care Plan: [place] : [address]-7 Pending 07/31/2017 Care Plan: ASSAY THYROID STIM HORMONE Pen ding 07/31/2017 Care Plan: LIPID PANEL LOINC : 86591-3 Pending 07/31/2017 Care Plan: CBC Pending 07/31/2017 Care Plan: A1C HPLC LOINC : 32963-6 Pending 07/31/2017 Patient Education: Patient Medication Summary Completed 06/19/2017 Patient Education: Patient Medication Summary Completed 06/09/2017 Care Plan: CT SOFT TISSUE [place] : [address]-6 Pending 06/09/2017 Visit Diagnosis Plan: Acute sialoadenitis [...] ICD-10 : B02.9 06/04/2017 Appointment: Gely Harp [address] [place], [place] [phone] ACUTE ILLNESS 06/04/2017 Patient Education: [...] ICD-10 : B02.9 06/02/2017 Appointment: Gely Harp [address] [place], [place] [phone] ACUTE ILLNESS 06/02/2017 Patient [...] E78.2 05/05/2017 Appointment: Neela Hyman WPtel: [phone] [facility] FOLLOW UP 05/05/2017 Patient Education: Patient Medication Summary Completed 05/05/2017 Patient Education: Patient Medication Summary Completed 05/01/2017 Care Plan: A1C HPLC [facility] : 48658-7 Pending 05/01/2017 Visit Diagnosis Plan: Chronic obstructiv [...] : H61.23 04/10/2017 Appointment: Gely Harp [address] [place] [address] ACUTE ILLNESS 04/10/2017 Patient Education: Patient Medication Summary Completed 04/10/2017 Appointment: Neela Hyman WPtel: [address] [place] [address] INJECTION 03/28/2017 Patient Education: Patient Medication Summary [...] : E11.9 02/03/2017 Appointment: Neela Hyman WPtel: [address] [place] [address] FOLLOW UP 02/03/2017 Patient Education: Patient Medication Summary Completed 02/03/2017 Patient Education: Patient Medication Summary Completed 01/30/2017 Care Plan: [place] : [address]-5 Pending 01/30/2017 Care Plan: LIPID PANEL LOINC : 97859-7 Pending 01/30/2017 Care Plan: CBC Pending 01/30/2017 Care Plan: A1C HPLC LOINC : 70539-6 Pending 01/30/2017 Care Plan: ASSAY OF PSA [...] : J44.9 10/30/2016 Appointment: Neela Hyman WPtel: [address] [place], [place] [address] [place] 6/ lm ~sl 10/30 confirmed~sl FOLLOW [...] Care Plan: Referral Order SNOMED-CT : 30 9024883 Pending 08/27/2016 Visit Diagnosis Plan: Type 2 [...] : E78.2 07/02/2016 Appointment: Neela Hyman WPtel: [address] [place], [place] [address] 07/01 rang and rang`sl FOLLOW UP 7 Patient Education: Patient Medication Summary Completed 07/02/2016 Patient Education: Patient Medication Summary Completed 06/27/2016 Care Plan: LIPID PANEL LOINC : 15358-8 Pending 06/27/2016 Care Plan: COMPREH[place]AB[place] : 97747-4 Pending 06/27/2016 Care Plan: A1C HPLC LOINC : 85371-6 Pending 06/27/2016 Visit Diagnosis Plan: Acute bronchitis, [...] ICD-10 : J20.9 06/14/2016 Appointment: Sammi Najera [address] [place] [address] FOLLOW UP 06/14/2016 Patient Education: Patient Medication [...] ICD-10 : J20.9 06/13/2016 Appointment: Sammi Najera [address] [place] [address] ACUTE ILLNESS 06/13/2016 Patient Education: Patient Medication Summary Completed 06/13/2016 Care Plan: CHEST X-RAY 2VW FRONTAL&LATL LOINC : 80111-7 Pending 06/13/2016 Visit Plan: Increase metoprolol to 100mg po BID BP readings and BP check in 1month 05/14/2016 Appointment: Neela Hyman WPtel: [address] [place], [place] [phone] 05/13 rang and rang`sl FOLLOW UP 6 Patient Education: Patient Medication Summary Completed 05/14/2016 Visit Plan: Increase metoprolol to 50mg BID BP check in 1 week f/u BP appt 2 weeks consider musculoskeletal if pain returns 04/29/2016 Appointment: Neela Hyman WPtel: [address] [place], [place] [phone] 04/25 confimred~sl FOLLOW UP 04/29/2016 Patient Education: Patient Medication Summary Completed 04/29/2016 Visit Plan: Stat CT scan of abdomen/pelv is to look for stone Hydrate and use tramadol prn Increase metoprolol to 25mg po BID Will see urology pending CT scan results 04/22/2016 Appointment: Neela Hyman WPtel: [address] [place], [place] [phone] 04/17 confirmed-sp ACUTE ILLNESS 04/22/2016 [...] shot 04/01/2016 Appointment: Neela Hyman WPtel: [address] [place], [place] [phone] FOLLOW UP 04/01/2016 Patient Education: Patient Medication Summary Completed 04/01/2016 Patient Education: [facility] - Saving AutoInj - 18-64 - Dynamic Heber l ID Completed 04/01/2016 Patient Education: Patient Medication Summary Completed 03/28/2016 Care Plan: A1C HPLC LOINC : 78929-8 Pending 03/28/2016 Care Plan: [place] : [address]-6 Pending 03/28/2016 Visit Plan: Lab discussed Continue curre nt meds Accuchecks daily 11/30/2015 Appointment: Neela Hyman WPtel: [address] [place], [place] [phone] 7/6 confirmed~sl FOLLOW UP 11/30/2015 Patient Education: Patient Medication Summary Completed 11/30/2015 Appointment: Neela Hyman WPtel: [address] [place], [place] [phone] RESCHEDULED 11/28/2015 Patient Education: Patient Medication Summary Completed 11/23/2015 Care Plan: [place] : [address]-0 Pending 11/23/2015 Care Plan: LIPID PANEL LOINC : 50117-7 Pending 11/23/2015 Care Plan: CBC Pending 11/23/2015 Care Plan: A1C HPLC LOINC : 41303-4 Pending 11/23/2015 Visit Plan: Lab discussed Accuchecks richard ly Continue current meds Cymbalta helping with feet and mood 08/29/2015 Appointment: Neela Hyman WPtel: [address] [place], [place] [phone] FOLLOW UP 08/29/2015 Patient Education: Patient Medication Summary Completed 08/29/2015 Visit Plan: Check CXR Stop all steroids and steroid inhalers Use SVN with but change to duoneb Add singulair for allergy etiology Change fluoxetine to cymbalta 60mg daily Viagra samples given to try prn--warned of no nitrates 08/14/2015 Appointment: Neela Hyman WPtel: [address] [place], [place] [phone] lm to reschedule ~sl 07/27 lm ~sl 08/09 busy 08/10 conf irmed-sp Annual Well Visit 08/14/2015 Patient Education: Patient Medication Summary Completed 08/14/2015 Care Plan: CHEST X-RAY 2VW FRONTAL&LATL LOINC : 20227-5 Ordered 08/14/2015 Visit Plan: Decadron 8mg given [...] as expected 08/09/2015 Appointment: Sammi Najera [address] [facility] ER Follow UP 08/09/2015 Patient [...] it 05/22/2015 Appointment: Neela Hyman WPtel: [address] [place], [place] [phone] 05/17 confirmed~sl FOLLOW UP 05/22/2015 Patient Education: Patient Medication Summary Completed 05/22/2015 Patient Education: Patient Medication Summary Completed 05/15/2015 Visit Plan: Obtain EMGs done at [place] from when fractured left arm Lab discussed Accuchecks daily 02/13/2015 Appointment: Neela Hyman WPtel: [address] [place], [place] [phone] 02/10 confrimed FOLLOW UP 02/13/2015 Patient Education: Patient Medication Summary Completed 02/13/2015 Patient Education: Patient Medication Summary Completed 02/09/2015 Visit Plan: discussed lab add fenofibrat e 134mg po daily recheck fasting lab in 3 months, CBC, CMP, Lipids, hgb AIC 11/07/2014 Appointment: Neela Hyman WPtel: [address] [place], [place] [phone] 11/04 appt confirmed cn FOLLOW UP 015 Patient Education: Patient Medication Summary Completed 11/07/2014 Patient Education: Patient Medication Summary Completed 11/03/2014 Visit Plan: Continue loratadine 10mg richard ly Notify if symptoms return 10/04/2014 Appointment: Neela Hyman WPtel: [address] [place], [place] [phone] confirmed on 10/03 at 2:42pm FOLLOW UP 09/23 Patient Education: Patient Medication Summary Completed 10/04/2014 Appointment: Neela Hyman WPtel: [address] [place], [place] [phone] ACUTE ILLNESS 09/28/2014 Appointment: Loren Garza WPtel: [address] [place], [place] [phone] FOLLOW UP 09/22/2014 Patient Education: Patient Medication Summary Completed 09/22/2014 Appointment: Loren Garza WPtel: [address] [place], [place] [phone] ACUTE ILLNESS 09/21/2014 Patient Education: Patient Medication Summary Completed 09/21/2014 Patient Education: [facility] - Saving AutoInj - 18+ - Dynamic Portal ID Completed 09/21/2014 Visit Plan: Lab discussed Continue daily accuchecks Continue current meds 06/28/2014 Appointment: Neela Hyman WPtel: [address] [place] [phone] FOLLOW UP 06/28/2014 Patient Education: Patient Medication Summary Completed 06/28/2014 Patient Education: Patient Medication Summary Completed 06/23/2014 Appointment: Sarah Sunshine WPtel: [address] [place], [place] [address] ACUTE ILLNESS 06/10/2014 Patient Education: Patient Medication Summary Completed 06/10/2014 Patient Education: [facility] - Saving AutoInj - 18+ - Dynamic Portal ID Completed 06/10/2014 Visit Plan: Lab discussed Continue daily accuchecks Continue current meds 03/29/2014 Appointment: Neela Hyman WPtel: [address] [place], [place] [phone] FOLLOW UP 03/29/2014 Patient Education: Patient Medication Summary Completed 03/29/2014 Patient Education: Patient Medication Summary Completed 03/23/2014 Visit Plan: Lab discussed Continue curre nt meds and accuchecks See surgery for removal of hand lesion 11/30/2013 Appointment: Neela Hyman WPtel: [address] [place] [address] 11/29 no answer FOLLOW UP 11/30/2013 Patient Education: Patient Medication Summary Completed 11/30/2013 Visit Plan: Lab discussed Continue curre nt meds 08/03/2013 Appointment: Neela Hyman WPtel: [address] [place] [address] FOLLOW UP 08/03/2013 Patient Education: Patient Medication Summary Completed 08/03/2013 Visit Plan: Lab Discussed Will continue current meds and pt will get back on diet/exercise Check lab in 4mos and fwup 04/06/2013 Appointment: Neela Hyman WPtel: [address] [place] [address] FOLLOW UP 04/06/2013 Patient Education: Patient Medication Summary Completed 04/06/2013 Visit Plan: Lab discussed Continue daily accuchecks 12/01/2012 Appointment: Neela Hyman WPtel: [address] [place], [place] [phone] 11/30 no answer FOLLOW UP 12/01/2012 Patient Education: Patient Medication Summary Completed 12/01/2012 Visit Plan: Continue current meds and da russell accuchecks Lab discussed 08/04/2012 Appointment: Neela Hyman WPtel: [address] [place], [place] [phone] [place] FOLLOW UP 08/04/2012 Patient Education: Patient Medication Summary Completed 08/04/2012 Appointment: Neela Hyman WPtel: [address] [place], [place] [phone] [facility] 06/01/2012 Patient Education: Patient Medication Summary Completed 06/01/2012 Appointment: Janet Jean Baptiste WPtel: [address] [place], [place] [phone] FOLLOW UP 05/29/2012 Patient Education: Patient Medication Summary Completed 05/29/2012 Visit Plan: pt states Dr. Hyman told h is to increase his Prozac dose while she was talking to her at [facility]. Discussed that pt. should not increase or decrease dosage without Dr's knowledge. Pt. will seek hearing test here in town at the hearing aid place on [address]. Discussed that ear pain is likely caused by sinus pressure. Pt. will notify if no improvement. 05/25/2012 Appointment: Janet Jean Baptiste WPtel: [address] [place] [address] ACUTE ILLNESS 05/25/2012 Patient Education: Patient Medication Summary Completed 05/25/2012 Visit Plan: Continue current meds Contin ue daily accuchecks but alternate times Increase fish oil to 3gm daily 04/07/2012 Appointment: Neela Hyman WPtel: [address] [place] [address] 04/06 FOLLOW UP 04/07/2012 Patient Education: Patient Medication Summary Completed 04/07/2012 Appointment: Janet Jean Baptiste WPtel: [address] [place], [place] [phone] ACUTE ILLNESS 12/16/2011 Patient Education: Patient Medication Summary Completed 12/16/2011 Visit Plan: Increase 12/03/2011 Appointment: Neela Hyman WPtel: [address] [place], [place] [phone] FOLLOW UP 12/03/2011 Patient Education: Patient Medication Summary Completed 12/03/2011 Visit Plan: Continue current meds Contin ue accuchecks 08/29/2011 Appointment: Neela Hyman WPtel: [address] [place], [place] [phone] FOLLOW UP 08/29/2011 Patient Education: Patient Medication Summary Completed 08/29/2011 Visit Plan: Continue current meds except restart zocor 05/30/2011 Appointment: Neela Hyman WPtel: [address] [place], [place] [phone] FOLLOW UP 05/30/2011 Patient Education: Patient Medication Summary Completed 05/30/2011 Visit Plan: Continue tennis elbow strap May go back to weight-lifing--light weigts every other day 01/29/2011 Appointment: Neela Hyman WPtel: [address] [place], [place] [id number] FOLLOW UP 01/29/2011 Patient Education: Patient Medication Summary Completed 01/29/2011 Visit Plan: Continue tennis elbow strap and anti-inflammatories 01/14/2011 Appointment: Neela Hyman WPtel: [address] [place], [place] [phone] FOLLOW UP 01/14/2011 Appointment: Janet Jean Baptiste WPtel: [address] [place], [place] [id number] NEW PATIENT 01/14/2011 Patient Education: Patient Medication Summary Completed 01/14/2011 Appointment: Neela Hyman WPtel: [address] [place], [place] [phone] FOLLOW UP 01/08/2011 Appointment: Neela Hyman WPtel: [address] [place], [place] [phone] FOLLOW UP 01/01/2011 Appointment: Neela Hyman WPtel: [address] [place], [place] [phone] UA 01/01/2011 Patient Education: Patient Medication Summary [...] given. 11/29/2010 Appointment: Janet Jean Baptiste WPtel: [address] [place] [address] ACUTE ILLNESS 11/29/2010 Patient Education: Patient Medication Summary Completed 11/29/2010 Visit Plan: Cont current meds Check CMP, Lipids, HbA1C 08/28/2010 Appointment: Neela Hyman WPtel: [address] [place] [address] FOLLOW UP 08/28/2010 Patient Education: Patient Medication Summary Completed 08/28/2010 Visit Plan: Cont current meds and accuch ecks Add Zocor 40mg q HS Check Lipids and HbA1C in 3mos 06/05/2010 Appointment: Neela Hyman WPtel: [address] [place] [address] FOLLOW UP 06/05/2010 Patient Education: Patient Medication Summary Completed 06/05/2010 Visit Plan: Check Lipids and HbA1C 02/05/2010 Appointment: Neela Hyman WPtel: [address] [place] [address] FOLLOW UP 02/05/2010 Patient Education: Patient Medication Summary Completed 02/05/2010 Visit Plan: HbA1C in 3mos. Continue Accu checks BID alternating times. Check HbA1C, CMP, Lipids 10/09/2009 Appointment: Neela Hyman WPtel: [address] [place] [address] FOLLOW UP 10/09/2009 Patient Education: Patient Medication Summary Completed 10/09/2009 Visit Plan: Saline nasal flushes prn. Ty lenol/Motrin prn headache. Notify if persists/symptoms worsening. 08/22/2009 Appointment: Neela Hyman WPtel: [address] [place] [address] ACUTE ILLNESS 08/22/2009 Patient Education: Patient Medication Summary Completed 08/22/2009 Referral: Aubrey Rand [facility]el[facility] [phone] [facility] [id number] [place] Office will verfy his insurance then they will contact patient Completed Referral: Shahbaz Brennan WPtel: [address] [facility] [address] [id number] [place] Referral Completed Referral: Ion Levi [address] [id number] [place] Referral Appointment Requested Referral: Ion Levi [address] [id number] [place] Referral Appointment Requested Instructions Comment . [...] with it . Obtain EMGs done at [place] from when fractured left arm Lab discussed [...] while she was talking to her at [facility]. Discussed that pt. should not increase or decrease dosage without Dr's knowledge. Pt. will seek hearing test here in town at the hearing aid place on [address]. Discussed that ear pain is likely caused [...]
--- OUTSIDE RECORDS SUMMARY | 2019-12-09 09:18 | XMS REPORT | CCD ---
Author Author Michael Hyman D.O. Organization [facility] Address [address] [place] [address] Phone Care Team Providers Care Community Worker Name Role Phone Neela Hyman D.O., PP Unavailable CCM Unavailable Summary Purpose Interface Exchange Insurance Providers Payer name Policy type / Coverage type Covered republican ID Effective Begin Date Effective End Date ABS FOR [employer] Commercial Insurance [id number] Unknown Family History Family History data not found Social History Social History Element Codes Description Effective Dates Marital status Unknown 05/30/[address]: 1091014 Former smoker quit 25 years ago 01/01/2011 Allergies, Adverse Reactions, Alerts Substance Reaction Codes Entered Date Inactivated Date Status CODEINE Unknown 08/22/2009 No Inactive Date Active Problems Condition Codes Effective Dates Condition Status Advanced chronic obstructive pulmonary disease ICD-9: 496 [...] Start Date Stop Date Status Fill Instructions Singulair 10 mg tablet RxNorm: 405501 TAKE ONE TABLET BY MOUTH EVERY EVENING 06/22/2019 09/19/2019 Active Reselected prescribe r from PEG [facility]HER to [facility] Zocor 40 mg tablet RxNorm: 528009 TAKE ONE TABLET BY M OUTH EVERY NIGHT AT BEDTIME 06/21/2019 11/17/2019 Active MagOx 400 mg (241.3 mg magnesium) tablet RxNorm: 672455 1 Table t(s) Oral QD 06/21/2019 08/20/2019 Active diltiazem ER 360 mg capsule,24 hr,extended release RxNorm: 8 01730 TAKE ONE CAPSULE BY MOUTH AT BEDTIME -REPLACES 300MG 05/17/2019 11/12/2019 Active MagOx 400 mg (241.3 mg magnesium) tablet RxNorm: 879793 1 Table t(s) Oral QD 04/26/2019 06/20/2019 Inactive Lasix 40 mg tablet RxNorm: 807597 40 MG PO DAILY 04/12/2019 No Stop Da te Active Benicar 40 mg tablet RxNorm: 549000 1 Tablet(s) Oral QD 03/29/2019 Active potassium chloride ER 20 mEq tablet,extended release RxNorm: 419620 1 Tablet(s) Oral two times a day 03/29/2019 06/27/2019 Active metformin 500 mg tablet RxNorm: 684880 2 Tablet(s) Oral two afshan es a day 03/29/2019 No Stop Date Active potassium chloride ER 20 mEq tablet,extended release RxNorm: 230011 1 Tablet(s) Oral QD 03/29/2019 03/28/2019 Inactive Benicar 40 mg tablet RxNorm: 297803 1 Tablet(s) Oral QD 03/29/2019 Inactive MagOx 400 mg (241.3 mg magnesium) tablet RxNorm: 944275 1 Table t(s) Oral QD 03/29/2019 04/25/2019 Inactive fenofibrate micronized 134 mg capsule RxNorm: 210138 TA KE ONE CAPSULE BY MOUTH EVERY DAY 03/05/2019 08/31/2019 Active duloxetine 60 mg capsule,delayed release RxNorm: 139896 1 Capsu le(s) PO QD 01/28/2019 07/26/2019 Active Trelegy Ellipta 100 mcg-62.5 mcg-25 mcg powder for inhalatio n RxNorm: 3739271 1 Puff(s) INH QD 01/06/2019 12/31/2019 Active 90 day supply prednisone 20 mg tablet RxNorm: 257451 1 Tablet(s) PO T ID for 3 days then 1 po BID for 3 days then 1 po daily for 3 days 01/05/2019 03/28/2019 Inacti ve metformin ER 1,000 mg tablet,extended release 24hr RxNorm: 1 545103 TAKE TWO TABLETS (1000MG) BY MOUTH TWO TIMES A DAY 12/22/2018 03/28/2019 Inacti ve Diflucan 100 mg tablet RxNorm: 187477 1 Tablet(s) PO QD 12/09/2018 Inactive albuterol sulfate 2.5 mg/3 mL (0.083 %) solution for n ebulization RxNorm: 741883 3 Milliliter(s) INH ONE VIAL VIA NEBULIZER EVERY 4 HOURS 019 07/21/2019 Active [AttnRPh: Saving apply/adjudicate RxGRP: SG20 RxBIN:[id number] RxPCN: ID#:[id number]] prednisone 20 mg tablet RxNorm: 972079 1 Tablet(s) PO B ID for 4 days then 1 po daily for 4 days 11/24/2018 01/04/2019 Inactive Trelegy Ellipta 100 mcg-62.5 mcg-25 mcg powder for inhalatio n RxNorm: 6376760 1 Puff(s) INH QD 10/27/2018 01/06/2019 Inactive 90 day supply metoprolol succinate ER 100 mg tablet,extended release 24 hr RxNorm: 285965 TAKE ONE TABLET BY MOUTH TWICE A DAY 10/13/2018 07/09/2019 Active diltiazem ER 360 mg capsule,24 hr,extended release RxNorm: 8 47256 TAKE ONE CAPSULE BY MOUTH AT BEDTIME -REPLACES 300MG 10/13/2018 04/10/2019 Inactive Trelegy Ellipta 100 mcg-62.5 mcg-25 mcg powder for inhalatio n RxNorm: 9788582 INHALE ONE PUFF ONCE DAILY 09/07/2018 10/27/2018 Inactive Levaquin 750 mg tablet RxNorm: 689522 1 Tablet(s) PO QD 09/07/2018 Inactive Levaquin 750 mg tablet RxNorm: 034338 1 Tablet(s) PO QD 09/07/2018 Inactive prednisone 20 mg tablet RxNorm: 711350 2 Tablet(s) PO QAM 08/13/2018 08/19/2018 Inactive Levaquin 500 mg tablet RxNorm: 388256 1 Tablet(s) PO QD 08/11/2018 Inactive fenofibrate micronized 134 mg capsule RxNorm: 097383 TA KE ONE CAPSULE BY MOUTH EVERY DAY 08/10/2018 02/05/2019 Inactive prednisone 20 mg tablet RxNorm: 605075 1 Tablet(s) PO BID 07/16/2018 07/20/2018 Inactive doxycycline hyclate 100 mg capsule RxNorm: 9270990 1 Capsule(s) PO BID 07/13/2018 07/22/2018 Inactive duloxetine 60 mg capsule,delayed release RxNorm: 912159 TAKE ONE CAPSULE BY MOUTH ONCE A DAY 07/08/2018 01/28/2019 Inactive Lasix 40 mg tablet RxNorm: 694498 1 TABLET(S) PO QAM 06/08/201809/05 Inactive potassium chloride ER 20 mEq tablet,extended release(p art/cryst) RxNorm: 8315165 1 TABLET(S) PO QD 06/08/2018 09/05/2018 Inactive metformin ER 1,000 mg tablet,extended release 24hr RxNorm: 1 506386 TAKE TWO TABLETS (1000MG) BY MOUTH TWO TIMES A DAY 06/01/2018 11/27/2018 Inacti ve Benicar HCT 40 mg-25 mg tablet RxNorm: 436237 TAKE ONE TABLET BY MOUTH ONCE DAILY 05/11/2018 03/28/2019 Inactive Zocor 40 mg tablet RxNorm: 667678 TAKE ONE TABLET BY M OUTH EVERY NIGHT AT BEDTIME 05/11/2018 06/20/2019 Inactive Trelegy Ellipta 100 mcg-62.5 mcg-25 mcg powder for inhalatio n RxNorm: 1531538 1 PUFF(S) INH QD 04/06/2018 07/04/2018 Inactive diltiazem ER 360 mg capsule,24 hr,extended release RxNorm: 8 80076 1 Capsule(s) PO QHS replaces 300mg dose 03/30/2018 09/25/2018 Inactive Trelegy Ellipta 100 mcg-62.5 mcg-25 mcg powder for inhalatio n RxNorm: 4527566 1 Puff(s) INH QD 02/24/2018 02/23/2018 Inactive Trelegy Ellipta 100 mcg-62.5 mcg-25 mcg powder for inhalatio n RxNorm: 3929584 1 Puff(s) INH QD 02/24/2018 02/23/2018 Inactive Trelegy Ellipta 100 mcg-62.5 mcg-25 mcg powder for inhalatio n RxNorm: 2625674 1 Puff(s) INH QD 02/24/2018 04/05/2018 Inactive Lasix 40 mg tablet RxNorm: 142729 1 Tablet(s) PO QAM 02/10/201803/11 Inactive potassium chloride ER 20 mEq tablet,extended release(p art/cryst) RxNorm: 0245819 1 Tablet(s) PO QD 02/10/2018 03/11/2018 Inactive fenofibrate micronized 134 mg capsule RxNorm: 308295 1 Capsule( s) PO QD 01/30/2018 07/28/2018 Inactive metoprolol succinate ER 100 mg tablet,extended release 24 hr RxNorm: 415117 TAKE ONE TABLET BY MOUTH TWICE A DAY 12/30/2017 09/25/2018 Inactive metformin ER 1,000 mg tablet,extended release 24hr RxNorm: 1 030289 1 Tablet(s) PO BID 11/17/2017 05/15/2018 Inactive [SAVINGS FOR NON -COVERED DRUGS -- BIN:473226, PCN: ASPROD1, Group: XXXXX, ID# [id number], Questions: . THIS IS NOT INSURANCE.] Benicar HCT 40 mg-25 mg tablet RxNorm: 746397 1 Tablet(s) PO QD 05/10/2018 Inactive [SAVINGS FOR NON-COVERED JESU GS -- BIN:285078, PCN: ASPROD1, Group: XXXXX, ID# [id number], Questions: . THIS IS NOT INSURANCE.] Bactroban 2 % topical cream RxNorm: 332292 Application TOP BID 10/2409/02/2018 Inactive clindamycin HCl 300 mg capsule RxNorm: 842537 2 Capsule(s) PO TID 0 11/05/2017 11/18/2017 Inactive duloxetine 60 mg capsule,delayed release RxNorm: 803316 Capsule(s) TAKE ONE CAPSULE BY MOUTH ONCE DAILY 09/24/2017 09/23/2017 Inactive triamcinolone acetonide 0.1 % topical ointment RxNorm: 7420231 1 TOP BID 09/09/2017 11/04/2017 Inactive Bactrim DS 800 mg-160 mg tablet RxNorm: 857573 1 Tablet(s) PO BID 0 08/07/2017 08/13/2017 Inactive metronidazole 500 mg tablet RxNorm: 541096 1 Tablet(s) PO BID 08/0708/13/2017 Inactive diltiazem ER 360 mg capsule,24 hr,extended release RxNorm: 8 71616 1 Capsule(s) PO QHS replaces 300mg dose 08/04/2017 01/30/2018 Inactive fenofibrate micronized 134 mg capsule RxNorm: 785817 1 Capsule( s) PO QD 07/21/2017 01/30/2018 Inactive Zocor 40 mg tablet RxNorm: 620894 1 Tablet(s) PO QHS 07/21/201705/10 Inactive GB duloxetine 60 mg capsule,delayed release RxNorm: 503678 Capsule(s) TAKE ONE CAPSULE BY MOUTH ONCE DAILY 06/24/2017 09/24/2017 Inactive Cleocin HCl 300 mg capsule RxNorm: 927796 2 Capsule(s) PO BID 06/0206/08/2017 Inactive acyclovir 800 mg tablet RxNorm: 734122 1 Tablet(s) PO 5x day 201706/08/2017 Inactive diltiazem ER 300 mg capsule,24 hr,extended release RxNorm: 8 15946 1 Capsule(s) PO QHS replaces 240mg dose 05/05/2017 08/03/2017 Inactive ipratropium-albuterol 0.5 mg-3 mg(2.5 mg base)/3 mL ne bulization soln RxNorm: 5542974 1 Unit Dose INH Q4H as needed 05/05/2017 01/04/2019 Inactive metformin ER 1,000 mg tablet,extended release 24hr RxNorm: 1 099510 1 Tablet(s) PO BID 04/28/2017 11/17/2017 Inactive [SAVINGS FOR NON -COVERED DRUGS -- BIN:942626, PCN: ASPROD1, Group: XXXXX, ID# [id number], Questions: . THIS IS NOT INSURANCE.] diltiazem ER (XR/XT) 240 mg capsule,extended release 2 4 hr, controlled RxNorm: 384896 TAKE ONE CAPSULE BY MOUTH EVERY DAY 04/15/2017 05/04/2017 Inact avani prednisone 20 mg tablet RxNorm: 499328 1 Tablet(s) PO QD 04/10/2017 1 06/14/2016 Inactive Breo Ellipta 200 mcg-25 mcg/dose powder for inhalation RxNor m: 5780130 1 Puff(s) INH QD 04/10/2017 02/09/2018 Inactive Breo Ellipta 200 mcg-25 mcg/dose powder for inhalation RxNor m: 9289722 1 Puff(s) INH QD 04/10/2017 04/09/2017 Inactive Levaquin 500 mg tablet RxNorm: 280314 1 Tablet(s) PO QD 04/10/2017 Inactive metoprolol succinate ER 100 mg tablet,extended release 24 hr RxNorm: 762967 TAKE ONE TABLET BY MOUTH TWICE A DAY 03/24/2017 12/18/2017 Inactive fenofibrate micronized 134 mg capsule RxNorm: 681578 1 Capsule( s) PO QD 01/16/2017 07/21/2017 Inactive Benicar HCT 40 mg-25 mg tablet RxNorm: 236078 1 Tablet(s) PO QD 11/17/2017 Inactive [SAVINGS FOR NON-COVERED JESU GS -- BIN:910940, PCN: ASPROD1, Group: XXXXX, ID# [id number], Questions: . THIS IS NOT INSURANCE.] metoprolol succinate ER 100 mg tablet,extended release 24 hr RxNorm: 067135 1 Tablet(s) PO BID 10/16/2016 03/23/2017 Inactive diltiazem ER (XR/XT) 240 mg capsule,extended release 2 4 hr, controlled RxNorm: 481116 1 Capsule(s) PO QD 10/16/2016 04/13/2017 Inactive [SAVINGS FOR NON- COVERED DRUGS -- BIN:951432, PCN: ASPROD1, Group: XXXXX, ID# [id number], Questions: . THIS IS NOT INSURANCE.] metformin ER 1,000 mg tablet,extended release 24hr RxNorm: 8 17378 1 Tablet(s) PO BID 10/16/2016 04/28/2017 Inactive [SAVINGS FOR NON -COVERED DRUGS -- BIN:292253, PCN: ASPROD1, Group: XXXXX, ID# [id number], Questions: . THIS IS NOT INSURANCE.] Zocor 40 mg tablet RxNorm: 583827 1 Tablet(s) PO QHS 10/16/201607/21 Inactive GB Singulair 10 mg tablet RxNorm: 407576 Tablet(s) 1 TABLET(S) PO QHS 08/27/2016 09/02/2018 Inactive prednisone 20 mg tablet RxNorm: 899935 1 Tablet(s) PO QD 08/27/2016 0 08/31/2016 Inactive ipratropium-albuterol 0.5 mg-3 mg(2.5 mg base)/3 mL ne bulization soln RxNorm: 0522720 1 Unit Dose INH Q4H as needed 08/27/2016 05/04/2017 Inactive metoprolol succinate ER 100 mg tablet,extended release 24 hr RxNorm: 856786 TAKE ONE TABLET BY MOUTH TWICE A DAY 08/05/2016 10/16/2016 Inactive duloxetine 60 mg capsule,delayed release RxNorm: 660858 TAKE ONE CAPSULE BY MOUTH ONCE DAILY 08/05/2016 06/24/2017 Inactive prednisone 20 mg tablet RxNorm: 603631 1 Tablet(s) PO QD 06/14/2016 0 06/18/2016 Inactive ipratropium-albuterol 0.5 mg-3 mg(2.5 mg base)/3 mL ne bulization soln RxNorm: 9484591 1 Unit Dose INH Q4H as needed 06/13/2016 08/26/2016 Inactive Levaquin 500 mg tablet RxNorm: 089379 1 Tablet(s) PO QD 06/13/2016 Inactive metoprolol succinate ER 100 mg tablet,extended release 24 hr RxNorm: 848152 1 Tablet(s) PO BID replaces 50mg dose 05/14/2016 07/12/2016 Inactive metoprolol succinate ER 50 mg tablet,extended release 24 hr RxNorm: 923129 1 Tablet(s) PO BID 04/29/2016 05/13/2016 Inactive prednisone 20 mg tablet RxNorm: 694344 1 Tablet(s) PO BID 04/22/2016 04/21/2016 Inactive prednisone 20 mg tablet RxNorm: 095692 1 Tablet(s) PO BID 04/22/2016 04/28/2016 Inactive Singulair 10 mg tablet RxNorm: 567393 Tablet(s) 1 TABLET(S) PO QHS 04/01/2016 08/26/2016 Inactive metoprolol succinate ER 25 mg tablet,extended release 24 hr RxNorm: 801414 1 Tablet(s) PO QHS for blood pressure 04/01/2016 05/13/2016 Inactive fenofibrate micronized 134 mg capsule RxNorm: 151941 TA KE ONE CAPSULE BY MOUTH DAILY 01/25/2016 01/16/2017 Inactive duloxetine 60 mg capsule,delayed release RxNorm: 470111 TAKE ONE CAPSULE BY MOUTH ONCE DAILY 01/25/2016 08/04/2016 Inactive Zocor 40 mg tablet RxNorm: 098857 TAKE ONE TABLET BY MOUTH AT B EDTIME 11/13/2015 10/16/2016 Inactive GB metformin ER 1,000 mg tablet,extended release 24hr RxNorm: 8 98009 1 Tablet(s) PO BID 10/26/2015 10/16/2016 Inactive [SAVINGS FOR NON -COVERED DRUGS -- BIN:674358, PCN: ASPROD1, Group: XXXXX, ID# [id number], Questions: . THIS IS NOT INSURANCE.] Benicar HCT 40 mg-25 mg tablet RxNorm: 614158 1 Tablet(s) PO QD 06/201511/11/2016 Inactive [SAVINGS FOR NON-COVERED JESU GS -- BIN:476230, PCN: ASPROD1, Group: XXXXX, ID# [id number], Questions: . THIS IS NOT INSURANCE.] diltiazem ER (XR/XT) 240 mg capsule,extended release,control led RxNorm: 064052 1 Capsule(s) PO QD 10/26/2015 10/15/2016 Inactive [SAVINGS FOR NO N-COVERED DRUGS -- BIN:257248, PCN: ASPROD1, Group: XXXXX, ID# [id number], Questions: . THIS IS NOT INSURANCE.] Singulair 10 mg tablet RxNorm: 202076 1 TABLET(S) PO QHS 09/18/2015 1 05/31/2015 Inactive Viagra 100 mg tablet RxNorm: 164087 1 Tablet(s) PO as needed 201511/23/2018 Inactive Singulair 10 mg tablet RxNorm: 818292 1 Tablet(s) PO QHS 08/16/2015 0 08/15/2015 Inactive Singulair 10 mg tablet RxNorm: 490652 1 Tablet(s) PO QHS 08/16/2015 0 09/14/2015 Inactive duloxetine 60 mg capsule,delayed release RxNorm: 444704 1 Capsule(s) PO QD replaces fluoxetine 08/14/2015 01/24/2016 Inactive ipratropium-albuterol 0.5 mg-3 mg(2.5 mg base)/3 mL ne bulization soln RxNorm: 5917548 1 Unit Dose INH Q4H as needed 08/14/2015 06/12/2016 Inactive prednisone 20 mg tablet RxNorm: 283668 Take 3 tabs PO o nce daily x 3 days, then 2 tabs PO once daily x 3 days and then 1 tab PO once daily x 3 days 08/09/2015 08/13/2015 Inactive Symbicort 160 mcg-4.5 mcg/actuation HFA aerosol inhaler RxNo rm: 6260898 2 Puff(s) INH BID 08/09/2015 08/13/2015 Inactive Zocor 40 mg tablet RxNorm: 337277 1 Tablet(s) PO QHS 05/23/201511/11 Inactive [AttnRPh: Saving apply/adjudicate RxGRP: SG20 RxBIN:[id number] RxPCN: ID#:[id number]] Benicar HCT 40 mg-25 mg tablet RxNorm: 117196 1 Tablet(s) PO QD 10/26/2015 Inactive [SAVINGS FOR NON-COVERED JESU GS -- BIN:357014, PCN: ASPROD1, Group: XXXXX, ID# [id number], Questions: . THIS IS NOT INSURANCE.] diltiazem ER (XR/XT) 240 mg capsule,extended release,control led RxNorm: 883222 1 Capsule(s) PO QD 04/24/2015 10/20/2015 Inactive [SAVINGS FOR NO N-COVERED DRUGS -- BIN:101948, PCN: ASPROD1, Group: XXXXX, ID# [id number], Questions: . THIS IS NOT INSURANCE.] fluoxetine 40 mg capsule RxNorm: 538229 1 Capsule(s) PO QD 04/24/20 15 08/13/2015 Inactive [SAVINGS FOR NON-COVERED JESU GS -- BIN:157693, PCN: ASPROD1, Group: XXXXX, ID# [id number], Questions: . THIS IS NOT INSURANCE.] Zocor 40 mg tablet RxNorm: 499410 TABLET(S) 1 TABLET(S) PO QHS 01/2505/23/2015 Inactive [AttnRPh: Saving apply/adjud icate RxGRP:SG20 RxBIN:[id number] RxPCN: ID#:[id number]] metformin ER 1,000 mg tablet,extended release 24hr RxNorm: 8 06025 1 TABLET(S) PO BID 01/29/2015 10/26/2015 Inactive [SAVINGS FOR NON -COVERED DRUGS -- BIN:870582, PCN: ASPROD1, Group: XXXXX, ID# XXXXXXX, Questions: . THIS IS NOT INSURANCE.] fenofibrate micronized 134 mg capsule RxNorm: 506986 1 CAPSULE( S) PO QD 01/23/2015 01/17/2016 Inactive fenofibrate micronized 134 mg capsule RxNorm: 078847 1 Capsule( s) PO QD 11/07/2014 01/22/2015 Inactive diltiazem ER (XR/XT) 240 mg capsule,extended release,control led RxNorm: 028421 1 Capsule(s) PO QD 10/24/2014 04/24/2015 Inactive [SAVINGS FOR NO N-COVERED DRUGS -- BIN:432541, PCN: ASPROD1, Group: XXXXX, ID# XXXXXXX, Questions: . THIS IS NOT INSURANCE.] Benicar HCT 40 mg-25 mg tablet RxNorm: 465400 1 Tablet(s) PO QD 05/201404/24/2015 Inactive [SAVINGS FOR NON-COVERED JESU GS -- BIN:649434, PCN: ASPROD1, Group: XXXXX, ID# XXXXXXX, Questions: . THIS IS NOT INSURANCE.] fluoxetine 40 mg capsule RxNorm: 973486 1 Capsule(s) PO QD 10/25/19 15 04/24/2015 Inactive [SAVINGS FOR NON-COVERED JESU GS -- BIN:506101, PCN: ASPROD1, Group: XXXXX, ID# XXXXXXX, Questions: . THIS IS NOT INSURANCE.] azithromycin 500 mg tablet RxNorm: 199484 1 Tablet(s) PO QD 015 09/27/2014 Inactive [SAVINGS FOR NON-COVERED JESU GS -- BIN:681416, PCN: ASPROD1, Group: XXXXX, ID# XXXXXXX, Questions: . THIS IS NOT INSURANCE.] albuterol sulfate 2.5 mg/3 mL (0.083 %) solution for n ebulization RxNorm: 244450 3 Milliliter(s) INH ONE VIAL VIA NEBULIZER EVERY 4 HOURS 015 11/19/2014 Inactive [AttnRPh: Saving apply/adjudicate RxGRP: SG20 RxBIN:[id number] RxPCN: ID#:[id number]] Zocor 40 mg tablet RxNorm: 885656 TABLET(S) 1 TABLET(S ) PO QHS 1 TABLET(S) PO QHS 09/04/2014 02/21/2015 Inactive [AttnRPh: Saving apply/adjudicate RxGRP:SG20 RxBIN:[id number] RxPCN: ID#:[id number]] metformin ER 1,000 mg tablet,extended release 24hr RxNorm: 8 26253 1 Tablet(s) PO BID 08/04/2014 01/28/2015 Inactive [SAVINGS FOR NON -COVERED DRUGS -- BIN:777770, PCN: ASPROD1, Group: XXXXX, ID# XXXXXXX, Questions: . THIS IS NOT INSURANCE.] Bromfed DM 2 mg-30 mg-10 mg/5 mL syrup RxNorm: 0805106 1 -2 Teaspoon(s) PO Q4H as needed for cough 06/10/2014 06/19/2014 Inactive [SAVINGS FOR UN INSURED PATIENTS -- BIN:388740, PCN: ASPROD1, Group: AME08, ID# [id number], Process claim through [employer], for questions: . THIS IS NOT INSURANCE.] Augmentin 875 mg-125 mg tablet RxNorm: 858891 1 Tablet(s) PO Q12H 0 06/10/2014 06/19/2014 Inactive [AttnRPh: Saving apply/adjud icate RxGRP:SG20 RxBIN:[id number] RxPCN:HT ID#:[id number]] Zocor 40 mg tablet RxNorm: 844359 Tablet(s) 1 TABLET(S ) PO QHS 1 TABLET(S) PO QHS 05/25/2014 08/22/2014 Inactive [AttnRPh: Saving apply/adjudicate RxGRP:SG20 RxBIN:[id number] RxPCN:HT ID#:[id number]] fluoxetine 40 mg capsule RxNorm: 081741 1 Capsule(s) PO QD 04/29/20 14 10/24/2014 Inactive [AttnRPh: Saving apply/adjud icate RxGRP:SG20 RxBIN:[id number] RxPCN:HT ID#:[id number]] diltiazem ER (XR/XT) 240 mg capsule,extended release,control led RxNorm: 304543 1 Capsule(s) PO QD 04/29/2014 10/24/2014 Inactive [AttnRPh: Savin g apply/adjudicate RxGRP:SG20 RxBIN:[id number] RxPCN:HT ID#:[id number]] Benicar HCT 40 mg-25 mg tablet RxNorm: 990161 1 Tablet(s) PO QD 09/201310/24/2014 Inactive [AttnRPh: Saving apply/adjud icate RxGRP:SG20 RxBIN:[id number] RxPCN:HT ID#:[id number]] Zocor 40 mg tablet RxNorm: 949537 1 TABLET(S) PO QHS 1 TABLET(S ) PO QHS 03/07/2014 05/25/2014 Inactive [AttnRPh: Saving chelsie ly/adjudicate RxGRP:SG20 RxBIN:[id number] RxPCN:HT ID#:[id number]] Zocor 40 mg tablet RxNorm: 813364 1 Tablet(s) PO QHS 1 TABLET(S ) PO QHS 12/06/2013 03/05/2014 Inactive [AttnRPh: Saving chelsie ly/adjudicate RxGRP:SG20 RxBIN:[id number] RxPCN:HT ID#:[id number]] diltiazem ER (XR/XT) 240 mg capsule,extended release,control led RxNorm: 214413 1 Capsule(s) PO QD 10/25/2013 04/22/2014 Inactive [AttnRPh: Savin g apply/adjudicate RxGRP:SG20 RxBIN:[id number] RxPCN:HT ID#:[id number]] fluoxetine 40 mg capsule RxNorm: 404754 1 Capsule(s) PO QD 10/26/1904/22/2014 Inactive [AttnRPh: Saving apply/adjud icate RxGRP:SG20 RxBIN:[id number] RxPCN:HT ID#:[id number]] Zocor 40 mg tablet RxNorm: 569984 1 Tablet(s) PO QHS 1 TABLET(S ) PO QHS 09/13/2013 12/06/2013 Inactive metformin ER 1,000 mg tablet,extended release 24hr RxNorm: 8 38295 Tablet(s) PO TAKE 1 TABLET BY MOUTH TWICE DAILY (REPLACES 500MG DOSE) 07/26/201303/2015 Inactive diltiazem ER (XR/XT) 240 mg capsule,extended release,control led RxNorm: 043325 1 Capsule(s) PO QD 05/03/2013 10/25/2013 Inactive fluoxetine 40 mg capsule RxNorm: 332930 1 Capsule(s) PO QD 05/03/20 13 10/25/2013 Inactive Benicar HCT 40 mg-25 mg tablet RxNorm: 118843 1 Tablet(s) PO QD 01/201304/29/2014 Inactive Zocor 40 mg tablet RxNorm: 449943 1 Tablet(s) PO QHS 12/10/201209/13 Inactive fluoxetine 40 mg capsule RxNorm: 189569 1 Capsule(s) PO QD 11/10/19 13 05/03/2013 Inactive diltiazem ER (XR/XT) 240 mg capsule,extended release,control led RxNorm: 872761 1 Capsule(s) PO QD 11/09/2012 05/03/2013 Inactive Benicar HCT 40 mg-25 mg tablet RxNorm: 361423 1 Tablet(s) PO QD 05/03/2013 Inactive metformin ER 1,000 mg tablet,extended release 24hr RxNorm: 8 60561 Tablet(s) PO TAKE 1 TABLET BY MOUTH TWICE DAILY (REPLACES 500MG DOSE) 08/05/201206/2013 Inactive Zocor 40 mg tablet RxNorm: 429257 1 Tablet(s) PO QHS 06/15/201212/09 Inactive fluoxetine 40 mg capsule RxNorm: 079245 1 Capsule(s) PO QD 05/15/20 12 11/08/2012 Inactive Neurontin 600 mg Tab RxNorm: 311070 1 Tablet(s) PO QHS 12/03/2011 Inactive metformin ER 1,000 mg tablet,extended release 24hr RxNorm: 8 80266 1 Tablet(s) PO BID replaces 500mg dose 12/03/2011 07/26/2013 Inactive Zocor 40 mg tablet RxNorm: 960313 1 Tablet(s) PO QHS 12/03/201106/15 Inactive fluoxetine 20 mg capsule RxNorm: 072664 1 Capsule(s) PO QD 12/03/19 12 05/24/2012 Inactive diltiazem ER (XR/XT) 240 mg capsule,extended release,control led RxNorm: 042568 1 Capsule(s) PO QD 11/15/2011 11/09/2012 Inactive Benicar HCT 40 mg-25 mg tablet RxNorm: 083724 1 Tablet(s) PO QD 02/16/2012 Inactive metformin ER 500 mg 24 hr Tab RxNorm: 507760 1 Tablet(s) PO BID 12/02/2011 Inactive Zocor 40 mg Tab RxNorm: 991909 1 Tablet(s) PO QHS 05/30/2011 11/25/19 12 Inactive fluoxetine 20 mg Cap RxNorm: 954525 1 Capsule(s) PO QD 05/28/2011 Inactive Neurontin 600 mg Tab RxNorm: 286988 1 Tablet(s) PO QHS 05/28/2011 Inactive Neurontin 600 mg Tab RxNorm: 397530 1 Tablet(s) PO QHS 02/22/201106/2011 Inactive Neurontin 600 mg Tab RxNorm: 771310 1 Tablet(s) PO QHS 01/14/2011 Inactive Neurontin 300 mg Cap RxNorm: 585884 1 Capsule(s) PO QHS 01/14/2011 Inactive Neurontin 600 mg Tab RxNorm: 834198 1 Tablet(s) PO QHS 01/14/2011 Inactive Medrol (Vipul) 4 mg Tabs in a Dose Pack RxNorm: 449971 Tablet(s) PO 0 01/02/2011 08/28/2011 Inactive as directed fluoxetine 20 mg Cap RxNorm: 043925 1 Capsule(s) PO QD 12/10/201006/2011 Inactive Zocor 40 mg Tab RxNorm: 569592 1 Tablet(s) PO QHS 12/03/2010 05/29/19 12 Inactive Neurontin 300 mg Cap RxNorm: 389774 1 Capsule(s) PO QHS 12/03/2010 Inactive Septra DS 800 mg-160 mg Tab RxNorm: 221519 1 Tablet(s) PO BID 11/2912/08/2010 Inactive diltiazem ER (XR/XT) 240 mg Continuous Release Cap RxNorm: 8 71695 1 Capsule(s) PO QD 11/20/2010 11/15/2011 Inactive Neurontin 300 mg Cap RxNorm: 550491 1 Capsule(s) PO QHS 11/06/2010 Inactive Neurontin 300 mg Cap RxNorm: 794917 1 Capsule(s) PO QHS 11/06/2010 Inactive Celebrex 200 mg Cap RxNorm: 923082 1 Capsule(s) PO BID 10/24/2010 Inactive fluoxetine 20 mg Cap RxNorm: 698309 1 Capsule(s) PO QD 06/07/201003/2011 Inactive Zocor 40 mg Tab RxNorm: 144577 1 Tablet(s) PO QHS 06/05/2010 12/02/19 11 Inactive Benicar HCT 40 mg-25 mg Tab RxNorm: 527377 1 Tablet(s) PO QD 200908/21/2011 Inactive Diltiazem 240 mg Continuous Release Cap RxNorm: 050705 1 Capsul e(s) PO QD 11/09/2009 09/02/2018 Inactive Avelox 400 mg Tab RxNorm: 421752 1 Tablet(s) PO QD 08/22/2009 010 Inactive ProAir HFA 90 mcg/actuation aerosol inhaler RxNorm: 017550 2 Puff(s) INH Q4H as needed No Start Date Active tramadol 50 mg tablet RxNorm: 322248 1-2 Tablet(s) PO TID as ne eded for pain No Start Date Active Tylenol Arthritis 650 mg Tab RxNorm: 2220806 2 Tablet(s) PO QD No Sta rt Date Active Celebrex 200 mg Cap RxNorm: 633032 1 Capsule(s) PO BID No Start Date 08/08/2015 Inactive Medrol (Vipul) 4 mg Tabs in a Dose Pack RxNorm: 633181 Tablet(s) PO N o Start Date 01/01/2011 Inactive as directed Promethazine-DM 6.25 mg-15 mg/5 mL Syrup RxNorm: 368668 1-2 Teaspoon(s) PO Q4H prn cough No Start Date 08/28/2011 Inactive Claritin 10 mg tablet RxNorm: 322756 1 Tablet(s) PO QD No Start Date 08/08/2015 Inactive [id number] Oral RxNorm: Oral No Start Da te 03/28/2019 Inactive Breo Ellipta 200 mcg-25 mcg/dose powder for inhalation RxNor m: 8321267 1 Puff(s) INH QD No Start Date 04/09/2017 Inactive metformin 500 mg Tab RxNorm: 743703 1 Tablet(s) PO QD No Start Date 0 08/17/2011 Inactive Diltiazem 240 mg Continuous Release Cap RxNorm: 561514 1 Capsul e(s) PO BID No Start Date 11/08/2009 Inactive fluoxetine 20 mg Cap RxNorm: 763398 1 Capsule(s) PO QD No Start Date 06/07/2010 Inactive Multivitamin & Mineral Formula Oral RxNorm: Oral No Start Da te 03/28/2019 Inactive Medrol (Vipul) 4 mg tablets in a dose pack RxNorm: 393263 Tablet(s) PO as directed No Start Date 05/28/2012 Inactive Fish Oil 1,000 mg Cap RxNorm: 1 Capsule(s) PO QD No Start Date 07/2018 Inactive Nexium 40 mg Cap RxNorm: 616912 1 Capsule(s) PO QD No Start Date 07/24 Inactive fluticasone 50 mcg/actuation nasal spray,suspension RxNorm: 8388239 2 [place] NASAL QD to each nostril No Start Date 08/03/2017 Inactive Viagra 100 mg tablet RxNorm: 851992 1 Tablet(s) PO as needed No Sta rt Date 09/17/2015 Inactive prednisone 20 mg tablet RxNorm: 057822 1 Tablet(s) PO B ID for 4 days then 1 po daily for 4 days No Start Date 11/23/2018 Inactive Benicar HCT 40 mg-25 mg Tab RxNorm: 509928 1 Tablet(s) PO QD No Sta rt [...] Code Item Item Code Result Date S vice Location MICROALBUMIN URINE RANDOM 93348 MICRL MG/L 5.8 MG/L 03/2011 Unknown MICROALBUMIN URINE RANDOM 43798 XM.ALB/CRE 5.2 MG/GCR Unknown MICROALBUMIN URINE RANDOM 57145 CREAT MG/D 111 MG/DL 03/2011 Unknown MICROALBUMIN URINE RANDOM 04580 CRE/100 1.11 G/L 12/24 Unknown Procedures Procedure Codes Date FLU VACC PRSV FREE INC ANTIG 65 AND OLDER CPT-4: 86400 03/04/2019 ADMIN PNEUMOCOCCAL VACCINE CPT-4: G0009 03/04/2019 ADMIN INFLUENZA VIRUS VAC CPT-4: G0008 03/04/2019 FLU VACC PRSV FREE INC ANTIG 65 AND OLDER CPT-4: 51930 03/04/2019 PNEUMOCOCCAL VACC 23 [facility] IM CPT-4: 14759 03/04/2019 THER/PROPH/DIAG INJ SC/IM CPT-4: 92785 08/11/2018 TRIAMCINOLONE ACET INJ NOS CPT-4: J3301 08/11/2018 DEXAMETHASONE SODIUM PHOS CPT-4: J1100 08/11/2018 THER/PROPH/DIAG INJ SC/IM CPT-4: 47258 07/16/2018 METHYLPREDNISOLONE INJECTION CPT-4: J2930 07/16/2018 INFLUENZA ASSAY W/OPTIC CPT-4: 83476 07/16/2018 THER/PROPH/DIAG INJ SC/IM CPT-4: 09426 07/13/2018 TRIAMCINOLONE ACET INJ NOS CPT-4: J3301 07/13/2018 THER/PROPH/DIAG INJ SC/IM CPT-4: 38996 05/04/2018 METHYLPREDNISOLONE INJECTION CPT-4: J2930 05/04/2018 FLU VACC PRSV FREE INC ANTIG 65 AND OLDER CPT-4: 33977 02/10/2018 PNEUMOCOCCAL VACC 13 [facility] IM CPT-4: 71586 02/10/2018 ADMIN INFLUENZA VIRUS VAC CPT-4: G0008 02/10/2018 ADMIN PNEUMOCOCCAL VACCINE CPT-4: G0009 02/10/2018 THER/PROPH/DIAG INJ SC/IM CPT-4: 37785 09/09/2017 TRIAMCINOLONE ACET INJ NOS CPT-4: J3301 09/09/2017 ALBUTEROL NON-COMP UNIT CPT-4: J7613 04/10/2017 AIRWAY INHALATION TREATMENT CPT-4: 29150 04/10/2017 PRESCRIP TRANSMIT VIA ERX SY CPT-4: G8553 04/10/2017 FLU VACC PRSV FREE INC ANTIG 65 AND OLDER CPT-4: 39611 03/28/2017 ADMIN INFLUENZA VIRUS VAC CPT-4: G0008 03/28/2017 PRESCRIP TRANSMIT VIA ERX SY CPT-4: G8553 08/27/2016 PRESCRIP TRANSMIT VIA ERX SY CPT-4: G8553 06/14/2016 ALBUTEROL NON-COMP UNIT CPT-4: J7613 06/13/2016 AIRWAY INHALATION TREATMENT CPT-4: 80259 06/13/2016 PRESCRIP TRANSMIT VIA ERX SY CPT-4: [...] CPT-4: G8553 11/07/2014 THER/PROPH/DIAG INJ SC/IM CPT-4: 74865 09/21/2014 METHYLPREDNISOLONE INJECTION CPT-4: J2930 09/21/2014 PRESCRIP TRANSMIT VIA ERX SY CPT-4: G8553 09/21/2014 PRESCRIP TRANSMIT VIA ERX SY CPT-4: G8553 06/10/2014 URINALYSIS NONAUTO W/O SCOPE CPT-4: 26595 06/01/2012 PRESCRIP TRANSMIT VIA ERX SY CPT-4: G8553 05/25/2012 PRESCRIP TRANSMIT VIA ERX SY CPT-4: G8553 12/03/2011 CUR TOBACCO NON-USER CPT-4: G8457 05/30/2011 PRESCRIP TRANSMIT VIA ERX SY CPT-4: G8553 05/30/2011 URINALYSIS NONAUTO W/O SCOPE CPT-4: 91456 01/01/2011 URINE CULTURE/ COLONY COUNT CPT-4: 67525 01/01/2011 CUR TOBACCO NON-USER CPT-4: G8457 01/01/2011 PRESCRIP TRANSMIT VIA ERX SY CPT-4: G8553 11/29/2010 PRESCRIP TRANSMIT VIA ERX SY CPT-4: G8553 06/05/2010 Vital Signs Date Vital 05/10/2019 Blood Pressure 1: 128/70 Code: 8480-6 [...] 1: 114/68 Code: 8480-6 BMI: 43.5 Code: 43704-1 Heart Rate 1: 52 bpm Height: 6'1" [...] 1: 136/72 Code: 8480-6 BMI: 42.7 Code: 11300-3 Heart Rate 1: 60 bpm Height: 6'1" Respiratory Rate: 22 bpm SpO2: 95% Tempera ture: 37.1 (C) / 98.7 (F) Weight: 324 lbs 02/10/2018 Blood Pressure 1: 146/78 Code: 8480-6 BMI: 42.4 Code: 46161-2 Heart Rate 1: 64 bpm Height: 6'1" Respiratory Rate: 22 bpm SpO2: 95% Tempera ture: 36.5 (C) / 97.7 (F) Weight: 321 lbs 11/05/2017 Blood Pressure 1: 128/84 Code: 8480-6 BMI: 42.9 Code: 76266-2 Heart Rate 1: 52 bpm Height: 6'1" Respiratory Rate: 22 bpm SpO2: 95% Tempera ture: 36.3 (C) / 97.3 (F) Weight: 325 lbs 09/09/2017 Blood Pressure 1: 162/90 Code: 8480-6 BMI: 42.5 Code: 47381-4 Heart Rate 1: 60 bpm Height: 6'1" Respiratory Rate: 24 bpm SpO2: 95% Tempera ture: 36.4 (C) / 97.6 (F) Weight: 322 lbs 08/07/2017 Blood Pressure 1: 152/90 Code: 8480-6 BMI: 42.2 Code: 32847-6 Heart Rate 1: 60 bpm Height: 6'1" Respiratory Rate: 26 bpm SpO2: 94% Tempera ture: 36.6 (C) / 97.8 (F) Weight: 320 lbs 08/04/2017 Blood Pressure 1: 150/86 Code: 8480-6 BMI: 42.7 Code: 13508-4 Heart Rate 1: 64 bpm Height: 6'1" Respiratory Rate: 20 bpm SpO2: 94% Tempera ture: 36.3 (C) / 97.3 (F) Weight: 324 lbs 06/04/2017 Blood Pressure 1: 164/90 Code: 8480-6 Heart Rate 1: 60 bpm Respiratory Rate: 24 bpm SpO2: 94% Temperature: 36.8 (C) / 98.3 (F) 06/02/2017 Blood Pressure 1: 162/80 Code: 8480-6 BMI: 42.9 Code: 38036-5 Heart Rate 1: 66 bpm Height: 6'1" Respiratory Rate: 22 bpm SpO2: 98% Tempera ture: 36.6 (C) / 97.8 (F) Weight: 325 lbs 05/05/2017 Blood Pressure 1: 164/94 Code: 8480-6 BMI: 41.4 Code: 85611-7 Heart Rate 1: 64 bpm Height: 6'1" Respiratory Rate: 22 bpm SpO2: 95% Tempera ture: 36.4 (C) / 97.5 (F) Weight: 314 lbs 04/10/2017 Blood Pressure 1: 136/78 Code: 8480-6 BMI: 42.0 Code: 61630-0 Heart Rate 1: 76 bpm Height: 6'1" Respiratory Rate: 24 bpm SpO2: 92% Tempera ture: 35.9 (C) / 96.7 (F) Weight: 318 lbs 02/03/2017 Blood Pressure 1: 134/82 Code: 8480-6 BMI: 41.7 Code: 41496-1 Heart Rate 1: 72 bpm Height: 6'1" Respiratory Rate: 24 bpm SpO2: 95% Tempera ture: 36.1 (C) / 97.0 (F) Weight: 316 lbs 10/30/2016 Blood Pressure 1: 126 Code: 8480-6 BMI: 41.3 Code: 85771-4 Heart Rate 1: 68 bpm Height: 6'1" Respiratory Rate: 20 bpm Temperature: 37 .1 (C) / 98.8 (F) Weight: 313 lbs 08/30/2016 Blood Pressure 1: 146/80 Code: 8480-6 BMI: 41.7 Code: 17267-4 Heart Rate 1: 64 bpm Height: 6'1" Respiratory Rate: 24 bpm SpO2: 94% Tempera ture: 36.6 (C) / 97.8 (F) Weight: 316 lbs 08/27/2016 Blood Pressure 1: 124 Code: 8480-6 Heart Rate 1: 66 bpm Height: 6'2" Respiratory Rate: 18 bpm SpO2: 94% Temperature: 36.6 (C) / 97.8 (F) Weight: 07/02/2016 Blood Pressure 1: 126 Code: 8480-6 BMI: 41.4 Code: 74433-8 Heart Rate 1: 68 bpm Height: 6'1" Respiratory Rate: 24 bpm SpO2: 94% Tempera ture: 36.6 (C) / 97.8 (F) Weight: 314 lbs 06/14/2016 Blood Pressure 1: 14682 Code: 8480-6 Heart Rate 1: 80 bpm Respiratory Rate: 20 bpm SpO2: 95% Temperature: 37.3 (C) / 99.2 (F) 06/13/2016 Blood Pressure 1: 146 Code: 8480-6 BMI: 40.5 Code: 23366-1 Heart Rate 1: 66 bpm Height: 6'1" Respiratory Rate: 28 bpm SpO2: 93% Tempera ture: 35.8 (C) / 96.4 (F) Weight: 307 lbs 05/14/2016 Blood Pressure 1: 146/90 Code: 8480-6 BMI: 41.2 Code: 44108-1 Heart Rate 1: 68 bpm Height: 6'1" Respiratory Rate: 26 bpm Temperature: 36 .8 (C) / 98.2 (F) Weight: 312 lbs 04/29/2016 Blood Pressure 1: 152/90 Code: 8480-6 BMI: 41.0 Code: 26503-6 Heart Rate 1: 68 bpm Height: 6'1" Respiratory Rate: 26 bpm SpO2: 94% Tempera ture: 36.1 (C) / 96.9 (F) Weight: 311 lbs 04/22/2016 Blood Pressure 1: 152/94 Code: 8480-6 BMI: 40.9 Code: 54881-6 Heart Rate 1: 68 bpm Height: 6'1" Respiratory Rate: 24 bpm SpO2: 94% Tempera ture: 36.2 (C) / 97.2 (F) Weight: 310 lbs 04/01/2016 Blood Pressure 1: 156/78 Code: 8480-6 BMI: 40.6 Code: 06458-1 Heart Rate 1: 84 bpm Height: 6'1" Respiratory Rate: 22 bpm SpO2: 95% Tempera ture: 37.1 (C) / 98.7 (F) Weight: 308 lbs 11/30/2015 Blood Pressure 1: 142/80 Code: 8480-6 BMI: 40.5 Code: 26425-3 Heart Rate 1: 88 bpm Height: 6'1" Respiratory Rate: 22 bpm Temperature: 36 .2 (C) / 97.2 (F) Weight: 307 lbs 08/29/2015 Blood Pressure 1: 132/70 Code: 8480-6 BMI: 40.0 Code: 05225-9 Heart Rate 1: 76 bpm Height: 6'1" Respiratory Rate: 24 bpm SpO2: 96% Tempera ture: 36.7 (C) / 98.0 (F) Weight: 303 lbs 08/14/2015 Blood Pressure 1: 126/80 Code: 8480-6 BMI: 39.4 Code: 72807-0 Heart Rate 1: 92 bpm Height: 6'1" Respiratory Rate: 24 bpm SpO2: 94% Tempera ture: 37.8 (C) / 100.0 (F) Weight: 299 lbs 08/09/2015 Blood Pressure 1: 146/82 Code: 8480-6 Heart Rate 1: 82 bpm Respiratory Rate: 22 bpm SpO2: 93% Temperature: 35.9 (C) / 96.6 (F) We ight: 310 lbs 05/22/2015 Blood Pressure 1: 156/76 Code: 8480-6 BMI: 41.0 Code: 07694-0 Heart Rate 1: 100 bpm Height: 6'1" Respiratory Rate: 22 bpm Temperature: 37 .2 (C) / 98.9 (F) Weight: 311 lbs 02/13/2015 Blood Pressure 1: 166/90 Code: 8480-6 BMI: 41.2 Code: 42459-2 Heart Rate 1: 72 bpm Height: 6'1" Respiratory Rate: 24 bpm SpO2: 93% Tempera ture: 36.9 (C) / 98.5 (F) Weight: 312 lbs 11/07/2014 Blood Pressure 1: 134/70 Code: 8480-6 BMI: 40.5 Code: 21257-2 Heart Rate 1: 76 bpm Height: 6'1" Respiratory Rate: 24 bpm Temperature: 36 .9 (C) / 98.4 (F) Weight: 307 lbs 10/04/2014 Blood Pressure 1: 144/86 Code: 8480-6 BMI: 40.1 Code: 23348-9 Heart Rate 1: 76 bpm Height: 6'1" Respiratory Rate: 28 bpm Temperature: 36 .6 (C) / 97.9 (F) Weight: 304 lbs 09/22/2014 Blood Pressure 1: 142/80 Code: 8480-6 BMI: 40.0 Code: 75597-8 Heart Rate 1: 80 bpm Height: 6'1" Respiratory Rate: 22 bpm SpO2: 96% Tempera ture: 36.6 (C) / 97.8 (F) Weight: 303 lbs 09/21/2014 Blood Pressure 1: 160/66 Code: 8480-6 BMI: 40.0 Code: 16481-5 Heart Rate 1: 90 bpm Height: 6'1" Respiratory Rate: 26 bpm SpO2: 94% Tempera ture: 35.7 (C) / 96.2 (F) Weight: 303 lbs 06/28/2014 Blood Pressure 1: 132/80 Code: 8480-6 BMI: 41.0 Code: 12651-4 Heart Rate 1: 64 bpm Height: 6' Respiratory Rate: 20 bpm Temperature: 36 .7 (C) / 98.0 (F) Weight: 302 lbs 06/10/2014 Blood Pressure 1: 152/70 Code: 8480-6 BMI: 41.1 Code: 49346-9 Heart Rate 1: 76 bpm Height: 6' Respiratory Rate: 20 bpm Temperature: 36 .6 (C) / 97.8 (F) Weight: 303 lbs 03/29/2014 Blood Pressure 1: 132/78 Code: 8480-6 BMI: 40.6 Code: 49023-6 Heart Rate 1: 84 bpm Height: 6' Respiratory Rate: 22 bpm Temperature: 37 .1 (C) / 98.8 (F) Weight: 299 lbs 11/30/2013 Blood Pressure 1: 136/84 Code: 8480-6 BMI: 39.2 Code: 04362-7 Heart Rate 1: 76 bpm Height: 6' Respiratory Rate: 20 bpm Temperature: 36 .8 (C) / 98.2 (F) Weight: 289 lbs 08/03/2013 Blood Pressure 1: 144/80 Code: 8480-6 Heart Rate 1: 86 bpm Respiratory Rate: 20 bpm Temperature: 36.6 (C) / 97.8 (F) Weight: 296 lbs 04/06/2013 Blood Pressure 1: 142/90 Code: 8480-6 BMI: 40.3 Code: 61727-5 Heart Rate 1: 88 bpm Height: 6' Respiratory Rate: 20 bpm Temperature: 36 .6 (C) / 97.8 (F) Weight: 297 lbs 12/01/2012 Blood Pressure 1: 124/78 Code: 8480-6 BMI: 38.7 Code: 55853-6 Heart Rate 1: 76 bpm Height: 6' Respiratory Rate: 20 bpm Temperature: 37 .2 (C) / 98.9 (F) Weight: 285 lbs 08/04/2012 Blood Pressure 1: 128/80 Code: 8480-6 BMI: 38.2 Code: 99541-9 Heart Rate 1: 76 bpm Height: 6' Respiratory Rate: 20 bpm Temperature: 37 .0 (C) / 98.6 (F) Weight: 282 lbs 05/29/2012 Blood Pressure 1: 138/78 Code: 8480-6 BMI: 36.6 Code: 76984-5 Heart Rate 1: 66 bpm Height: 6' Temperature: 36.7 (C) / 98.1 (F) Weight: 270 lbs 05/25/2012 Blood Pressure 1: 128/72 Code: 8480-6 BMI: 39.9 Code: 63263-1 Heart Rate 1: 74 bpm Height: 6' Temperature: 36.1 (C) / 97.0 (F) Weight: 294 lbs 04/07/2012 Blood Pressure 1: 124/76 Code: 8480-6 BMI: 39.9 Code: 85740-7 Heart Rate 1: 72 bpm Height: 6' Respiratory Rate: 20 bpm Temperature: 36 .9 (C) / 98.5 (F) Weight: 294 lbs 12/16/2011 Blood Pressure 1: 128/80 Code: 8480-6 BMI: 40.8 Code: 24507-5 Heart Rate 1: 74 bpm Height: 6' Temperature: 36.6 (C) / 97.8 (F) Weight: 301 lbs 12/03/2011 Blood Pressure 1: 132/76 Code: 8480-6 BMI: 40.8 Code: 12512-9 Heart Rate 1: 68 bpm Height: 6' Respiratory Rate: 20 bpm Temperature: 36 .8 (C) / 98.2 (F) Weight: 301 lbs 08/29/2011 Blood Pressure 1: 140/68 Code: 8480-6 BMI: 40.8 Code: 62520-1 Heart Rate 1: 80 bpm Height: 6' Respiratory Rate: 20 bpm Temperature: 36 .4 (C) / 97.6 (F) Weight: 301 lbs 05/30/2011 Blood Pressure 1: 134/82 Code: 8480-6 BMI: 41.5 Code: 66276-3 Heart Rate 1: 76 bpm Height: 6' [...] 1: 126/72 Code: 8480-6 BMI: 41.2 Code: 10045-4 Heart Rate 1: 76 bpm Height: 6' [...] 1: 152/90 Code: 8480-6 BMI: 37.7 Code: 35834-0 Heart Rate 1: 92 bpm Height: 6'1" Temperature: 38.3 (C) / 101.0 (F) Weight : 286 lbs Functional Status No Functional Status data Reason For Visit Reason For Visit Effective Dates Notes follow up 05/10/2019 follow up 03/29/2019 Hospital [...] dm Encounters Encounter Performer Location Codes Date ([id number]) OFFICE/OUTPATIENT VISIT EST Diagnosis: Advanced chronic obstructive pulmonary disease[ICD10: J44.9] 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] Neela ZHANGER DO [facility] CPT-4: 27759 05/10/2019 ([id number]) OFFICE/OUTPATIENT VISIT EST Diagnosis: Chronic obstructive pulmonary disease with (acute) exacerbation[ICD10: J44.1] Diagnosis: Hypokalemia[ICD10: E87.6] 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] Neela HYMAN DO [facility] CPT-4: 15100 03/29/2019 ([id number]) NURSE/OUTPATIENT VISIT EST Diagnosis: PNEUMOCOCCAL VACCINE[ICD10: Z23] Neela HYMAN DO [facility] CPT-4: 25262 03/04/2019 ([id number]) OFFICE/OUTPATIENT VISIT EST Diagnosis: Chronic obstructive pulmonary disease with (acute) exacerbation[ICD10: J44.1] Diagnosis: Other nonspecific abnormal finding of lung field[ICD10: R91.8] Neela HYMAN DO [facility] CPT-4: 31762 01/05/2019 ([id number]) OFFICE/OUTPATIENT VISIT EST Diagnosis: Solitary pulmonary nodule[ICD10: R91.1] 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] Diagnosis: Tinea corporis[ICD10: B35.4] Neela HYMAN DO [facility] CPT-4: 92417 12/09/2018 ([id number]) OFFICE/OUTPATIENT VISIT EST Diagnosis: COUGH[ICD10: R05] Diagnosis: Chronic obstructive pulmonary disease, unspecified[ICD10: J44.9] Diagnosis: Other disorders of lung[ICD10: J98.4] Diagnosis: Other nonspecific abnormal finding of lung field[ICD10: R91.8] Neela HYMAN DO [facility] CPT-4: 58227 11/24/2018 ([id number]) OFFICE/OUTPATIENT VISIT EST Diagnosis: Pneumonia, unspecified organism[ICD10: J18.9] Amita Henderson NEELA HYMAN DO [facility] CPT-4: 83458 09/16/2018 ([id number]) OFFICE/OUTPATIENT VISIT EST Diagnosis: Pneumonia, unspecified organism[ICD10: J18.9] Neela HYMAN [employer] [facility] CPT-4: 42207 09/03/2018 ([id number]) OFFICE/OUTPATIENT VISIT EST Diagnosis: Personal history of pneumonia (recurrent)[ICD10: Z87.01] Diagnosis: Cough[ICD10: R05] Diagnosis: Essential (primary) hypertension[ICD10: I10] Diagnosis: Type 2 diabetes mellitus with hyperglycemia[ICD10: E11.65] Amita ZHANG [employer] [facility] CPT-4: 19564 08/27/2018 OFFICE/OUTPATIENT VISIT EST Diagnosis: Pneumonia, unspecified organism[ICD10: J18.9] Diagnosis: Chronic obstructive pulmonary disease with (acute) exacerbation[ICD10: J44.1] Diagnosis: Other specified symptoms and signs involving the circulatory and respiratory systems[ICD10: R09.89] Diagnosis: Essential (primary) hypertension[ICD10: I10] Amita ZHANG [employer] [facility] CPT-4: 02067 08/13/2018 OFFICE/OUTPATIENT VISIT EST Diagnosis: Pneumonia, unspecified organism[ICD10: J18.9] Diagnosis: Other specified symptoms and signs involving the circulatory and respiratory systems[ICD10: R09.89] Amita ZHANG [employer] [facility] CPT-4: 77706 08/11/2018 ([id number]) OFFICE/OUTPATIENT VISIT EST Diagnosis: Dyspnea, unspecified[ICD10: R06.00] Diagnosis: Chronic obstructive pulmonary disease with (acute) exacerbation[ICD10: J44.1] Diagnosis: Pneumonia, unspecified organism[ICD10: J18.9] Amita HYMAN [employer] [facility] CPT-4: 07383 07/16/2018 ([id number]) OFFICE/OUTPATIENT VISIT EST Diagnosis: Acute bronchitis due to other specified organisms[ICD10: J20.8] Diagnosis: Cough[ICD10: R05] Amita HYMAN [employer] [facility] T-4: 55921 07/13/2018 ([id number]) OFFICE/OUTPATIENT VISIT EST Diagnosis: Essential (primary) hypertension[ICD10: I10] Diagnosis: Chronic obstructive pulmonary disease, unspecified[ICD10: J44.9] Diagnosis: Type 2 diabetes mellitus with hyperglycemia[ICD10: E11.65] Diagnosis: Mixed hyperlipidemia[ICD10: E78.2] Neela HYMAN DO [facility] CPT-4: 40193 06/03/2018 ([id number]) OFFICE/OUTPATIENT VISIT EST Diagnosis: Chronic obstructive pulmonary disease, unspecified[ICD10: J44.9] Gely HYMAN DO [facility] CPT-4: 09093 05/04/2018 ([id number]) OFFICE/OUTPATIENT VISIT EST Diagnosis: Essential (primary) hypertension[ICD10: I10] Diagnosis: Localized edema[ICD10: R60.0] Neela HYMAN DO [facility] CPT-4: 97401 03/03/2018 ([id number]) OFFICE/OUTPATIENT VISIT EST Diagnosis: Localized edema[ICD10: R60.0] Neela HYMAN DO [facility] CPT-4: 25084 02/17/2018 ([id number]) OFFICE/OUTPATIENT VISIT EST Diagnosis: FLU VACCINE[ICD10: Z23] Diagnosis: PNEUMOCOCCAL VACCINE[ICD10: Z23] Diagnosis: Type 2 diabetes mellitus without complications[ICD10: E11.9] Diagnosis: Mixed hyperlipidemia[ICD10: E78.2] Diagnosis: Essential (primary) hypertension[ICD10: I10] Diagnosis: Localized edema[ICD10: R60.0] Diagnosis: Chronic obstructive pulmonary disease, unspecified[ICD10: J44.9] Neela HYMAN DO [facility] CPT-4: 66982 02/10/2018 ([id number]) OFFICE/OUTPATIENT VISIT EST Diagnosis: Type 2 diabetes mellitus with hyperglycemia[ICD10: E11.65] Diagnosis: Mixed hyperlipidemia[ICD10: E78.2] Diagnosis: Essential (primary) hypertension[ICD10: I10] Diagnosis: Chronic obstructive pulmonary disease, unspecified[ICD10: J44.9] Diagnosis: Cutaneous abscess of back [any part, except buttock][ICD10: L02.212] Neela HYMAN DO [facility] CPT-4: 38264 11/05/2017 ([id number]) OFFICE/OUTPATIENT VISIT EST Diagnosis: Allergic urticaria[ICD10: L50.0] Gely HYMAN DO [facility] CPT-4: 86358 09/09/2017 ([id number]) OFFICE/OUTPATIENT VISIT EST Diagnosis: Generalized enlarged lymph nodes[ICD10: R59.1] Diagnosis: Acute gastritis without bleeding[ICD10: K29.00] Gely HYMAN DO [facility] CPT-4: 19373 08/07/2017 ([id number]) OFFICE/OUTPATIENT VISIT EST Diagnosis: Type 2 diabetes mellitus without complications[ICD10: E11.9] Diagnosis: Mixed hyperlipidemia[ICD10: E78.2] Diagnosis: Essential (primary) hypertension[ICD10: I10] Neela HYMAN DO [facility] CPT-4: 15423 08/04/2017 ([id number]) OFFICE/OUTPATIENT VISIT EST Diagnosis: Zoster without complications[ICD10: B02.9] Diagnosis: Acute sialoadenitis[ICD10: K11.21] Gely HYMAN [employer] [facility] CPT-4: 19952 06/04/2017 OFFICE/OUTPATIENT VISIT EST Diagnosis: Zoster without complications[ICD10: B02.9] Diagnosis: Acute sialoadenitis[ICD10: K11.21] eGly HYMAN DO [facility] CPT-4: 60043 06/02/2017 ([id number]) OFFICE/OUTPATIENT VISIT EST Diagnosis: Type 2 diabetes mellitus without complications[ICD10: E11.9] Diagnosis: Mixed hyperlipidemia[ICD10: E78.2] Diagnosis: Essential (primary) hypertension[ICD10: I10] Diagnosis: Chronic obstructive pulmonary disease, unspecified[ICD10: J44.9] eNela HYMAN DO [facility] CPT-4: 35857 05/05/2017 OFFICE/OUTPATIENT VISIT EST Diagnosis: Chronic obstructive pulmonary disease with acute lower respiratory infection[ICD10: J44.0] Diagnosis: Impacted cerumen, bilateral[ICD10: H61.23] Gely HYMAN DO [facility] CPT-4: 03313 04/10/2017 ([id number]) OFFICE/OUTPATIENT VISIT EST Diagnosis: FLU VACCINE[ICD10: Z23] Neela BUI [employer] [facility] CPT-4: 70689 03/28/2017 ([id number]) OFFICE/OUTPATIENT VISIT EST Diagnosis: Type 2 diabetes mellitus without complications[ICD10: E11.9] Diagnosis: Mixed hyperlipidemia[ICD10: E78.2] Diagnosis: Essential (primary) hypertension[ICD10: I10] Diagnosis: Chronic obstructive pulmonary disease, unspecified[ICD10: J44.9] Neela HYMAN DO [facility] CPT-4: 72570 02/03/2017 ([id number]) OFFICE/OUTPATIENT VISIT EST Diagnosis: Type 2 diabetes mellitus with hyperglycemia[ICD10: E11.65] Diagnosis: Mixed hyperlipidemia[ICD10: E78.2] Diagnosis: Essential (primary) hypertension[ICD10: I10] Diagnosis: Chronic obstructive pulmonary disease, unspecified[ICD10: J44.9] Neela HYMAN DO [facility] CPT-4: 25452 10/30/2016 ([id number]) NO CHARGE Diagnosis: Acute bronchitis, unspecified[ICD10: J20.9] Sammi HYMAN [facility] CPT-4: 06027 08/30/2016 ([id number]) OFFICE/OUTPATIENT VISIT EST Diagnosis: Acute bronchitis, unspecified[ICD10: J20.9] Diagnosis: Other seasonal allergic rhinitis[ICD10: J30.2] Sammi MIRZALINE Octavio HYMAN [facility] CPT-4: 80582 08/27/2016 ([id number]) OFFICE/OUTPATIENT VISIT EST Diagnosis: Type 2 diabetes mellitus without complications[ICD10: E11.9] Diagnosis: Mixed hyperlipidemia[ICD10: E78.2] Diagnosis: Essential (primary) hypertension[ICD10: I10] Neela HYMAN DO [facility] CPT-4: 38571 07/02/2016 ([id number]) OFFICE/OUTPATIENT VISIT EST Diagnosis: Acute bronchitis, unspecified[ICD10: J20.9] Sammi HYMAN DO [facility] CPT-4: 44171 06/14/2016 ([id number]) OFFICE/OUTPATIENT VISIT EST Diagnosis: Acute bronchitis, unspecified[ICD10: J20.9] Sammi HYMAN DO [facility] CPT-4: 65165 06/13/2016 ([id number]) OFFICE/OUTPATIENT VISIT EST Diagnosis: Essential (primary) hypertension[ICD10: I10] Neela HYMAN DO [facility] CPT-4: 10153 05/14/2016 ([id number]) OFFICE/OUTPATIENT VISIT EST Diagnosis: Essential (primary) hypertension[ICD10: I10] Neela HYMAN DO [facility] CPT-4: 82585 04/29/2016 ([id number]) OFFICE/OUTPATIENT VISIT EST Diagnosis: Unspecified abdominal pain[ICD10: R10.9] Diagnosis: Left lower quadrant pain[ICD10: R10.32] Diagnosis: Left upper quadrant pain[ICD10: R10.12] Diagnosis: Essential (primary) hypertension[ICD10: I10] Neela HYMAN DO [facility] CPT-4: 14186 04/22/2016 ([id number]) OFFICE/OUTPATIENT VISIT EST Diagnosis: Type 2 diabetes mellitus without complications[ICD10: E11.9] Diagnosis: Mixed hyperlipidemia[ICD10: E78.2] Diagnosis: Essential (primary) hypertension[ICD10: I10] Neela HYMAN DO [facility] CPT-4: 40896 04/01/2016 ([id number]) OFFICE/OUTPATIENT VISIT EST Diagnosis: Type 2 diabetes mellitus with hyperglycemia[ICD10: E11.65] Diagnosis: Mixed hyperlipidemia[ICD10: E78.2] Diagnosis: Essential (primary) hypertension[ICD10: I10] Neela HYMAN DO [facility] CPT-4: 66125 11/30/2015 ([id number]) OFFICE/OUTPATIENT VISIT EST Diagnosis: Type 2 diabetes mellitus with diabetic neuropathy, unspecified[ICD10: E11.40] Diagnosis: Essential (primary) hypertension[ICD10: I10] Diagnosis: Mixed hyperlipidemia[ICD10: E78.2] Neela HYMAN DO [facility] CPT-4: 40686 08/29/2015 ([id number]) OFFICE/OUTPATIENT VISIT EST Diagnosis: COUGH[ICD10: R05] Diagnosis: Wheezing[ICD10: R06.2] Diagnosis: Type 2 diabetes mellitus with diabetic neuropathy, unspecified[ICD10: E11.40] Neela Zhanghao NEELA JulissaMendez YENNI [facility] CPT-4: 78481 08/14/2015 ([id number]) OFFICE/OUTPATIENT VISIT EST Diagnosis: Other seasonal allergic rhinitis[ICD10: J30.2] Diagnosis: Dyspnea, unspecified[ICD10: R06.00] Diagnosis: Wheezing[ICD10: R06.2] Sammi Najera NEELA Cunningham SERGEGEMMAHAO [facility] CPT-4: 56729 08/09/2015 ([id number]) OFFICE/OUTPATIENT VISIT EST Diagnosis: Essential (primary) hypertension[ICD10: I10] Diagnosis: Type 2 diabetes mellitus with hyperglycemia[ICD10: E11.65] Diagnosis: Mixed hyperlipidemia[ICD10: E78.2] Neela STERLING JulissaMendez YENNI [facility] CPT-4: 21229 05/22/2015 ([id number]) OFFICE/OUTPATIENT VISIT EST Diagnosis: DM W/O COMPLICATION TYPE II[ICD9: 250.00] Diagnosis: - I - HYPERTENSION[ICD9: 401.9] Diagnosis: - I - HYPERLIPIDEMIA NEC/NOS[ICD9: 272.4] Diagnosis: Left hand paresthesia[ICD9: 782.0] Neela STERLING JulissaMendez YENNI [employer] [facility] CPT-4: 37827 02/13/2015 ([id number]) OFFICE/OUTPATIENT VISIT EST Diagnosis: HYPERLIPIDEMIA NEC/NOS[ICD9: 272.4] Diagnosis: DM W/O COMPLICATION TYPE II[ICD9: 250.00] Neela MURILLO JulissaMendez YENNI [employer] [facility] CPT-4: 20652 11/07/2014 ([id number]) OFFICE/OUTPATIENT VISIT EST Diagnosis: ALLERGIC RHINITIS[ICD9: 477.9] Diagnosis: WHEEZING[ICD9: 786.07] Neela Cunningham SERGEMANOLO Gerald [employer] [facility] CPT-4: 33556 10/04/2014 ([id number]) OFFICE/OUTPATIENT VISIT EST Diagnosis: BRONCHITIS, ACUTE[ICD9: 466.0] Diagnosis: WHEEZING[ICD9: 786.07] Loren Cunningham SERGEMANOLO Duarte [facility] CPT-4: 50675 09/22/2014 ([id number]) OFFICE/OUTPATIENT VISIT EST Diagnosis: DYSPNEA[ICD9: 786.09] Diagnosis: WHEEZING[ICD9: 786.07] Diagnosis: Arrhythmia[ICD9: 427.9] Loren Garza NEELA Cunningham SERGEGEMMA BUI [facility] CPT-4: 06634 09/21/2014 ([id number]) OFFICE/OUTPATIENT VISIT EST Diagnosis: DM W/O COMPLICATION TYPE II, 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] Diagnosis: - I - HYPERLIPIDEMIA NEC/NOS[ICD9: 272.4] Diagnosis: - I - HYPERTENSION[ICD9: 401.9] Neela HYMAN [facility] CPT-4: 31601 06/28/2014 OFFICE/OUTPATIENT VISIT EST Diagnosis: SINUSITIS, ACUTE[ICD9: 461.9] Diagnosis: OTITIS MEDIA NOS[ICD9: 382.9] [facility] 11221 06/10/2014 ([id number]) OFFICE/OUTPATIENT VISIT EST Diagnosis: DM W/O COMPLICATION TYPE II[ICD9: 250.00] Diagnosis: - I - HYPERLIPIDEMIA NEC/NOS[ICD9: 272.4] Diagnosis: - I - HYPERTENSION[ICD9: 401.9] [facility] 54425 03/29/2014 ([id number]) OFFICE/OUTPATIENT VISIT EST Diagnosis: DM W/O COMPLICATION TYPE II[ICD9: 250.00] Diagnosis: - I - HYPERTENSION[ICD9: 401.9] Diagnosis: - I - HYPERLIPIDEMIA NEC/NOS[ICD9: 272.4] Diagnosis: Hand lesion[ICD9: 709.9] Neela MADRIGAL [facility] CPT-4: 91375 11/30/2013 ([id number]) OFFICE/OUTPATIENT VISIT EST Diagnosis: DM W/O COMPLICATION TYPE II[ICD9: 250.00] Diagnosis: HYPERLIPIDEMIA NEC/NOS[ICD9: 272.4] Diagnosis: HYPERTENSION[ICD9: 401.9] Neela VASQUEZ [facility] CPT-4: 62838 08/03/2013 ([id number]) OFFICE/OUTPATIENT VISIT EST Diagnosis: DM W/O COMPLICATION TYPE II, 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] Diagnosis: HYPERTENSION[ICD9: 401.9] Diagnosis: HYPERLIPIDEMIA NEC/NOS[ICD9: 272.4] Neela HYMAN [employer] [facility] CPT-4: 18954 04/06/2013 ([id number]) OFFICE/OUTPATIENT VISIT EST Diagnosis: DM W/O COMPLICATION TYPE II[ICD9: 250.00] Diagnosis: HYPERLIPIDEMIA NEC/NOS[ICD9: 272.4] Diagnosis: HYPERTENSION[ICD9: 401.9] Neelasabina VASQUEZ [facility] CPT-4: 08721 12/01/2012 ([id number]) OFFICE/OUTPATIENT VISIT EST Diagnosis: DM W/O COMPLICATION TYPE II[ICD9: 250.00] Diagnosis: HYPERTENSION[ICD9: 401.9] Diagnosis: HYPERLIPIDEMIA NEC/NOS[ICD9: 272.4] Neela Sergegemmahao HYMAN [employer] [facility] CPT-4: 37981 08/04/2012 ([id number]) OFFICE/OUTPATIENT VISIT EST Diagnosis: URINARY FREQUENCY[ICD9: 788.41] Neela Yenni HYMAN [employer] [facility] CPT-4: 19977 06/01/2012 OFFICE/OUTPATIENT VISIT EST Diagnosis: Agitation[ICD9: 307.9] Diagnosis: Frequent urination[ICD9: 788.41] Janet Jean Baptiste NEELA JulissaMendez YENNI [employer] [facility] CPT-4: 48661 05/29/2012 OFFICE/OUTPATIENT VISIT EST Diagnosis: SINUSITIS, ACUTE[ICD9: 461.9] Diagnosis: OTALGIA[ICD9: 388.70] Neela Sergegemmahao CostaMendez YENNI [employer] [facility] CPT-4: 04142 05/25/2012 OFFICE/OUTPATIENT VISIT EST Diagnosis: DM W/O COMPLICATION TYPE II, 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] Diagnosis: HYPERTENSION[ICD9: 401.9] Diagnosis: HYPERLIPIDEMIA NEC/NOS[ICD9: 272.4] Neela Yenni CostaMendez YENNI [employer] [facility] CPT-4: 21406 04/07/2012 OFFICE/OUTPATIENT VISIT EST Diagnosis: FINGER INJURY[ICD9: 959.5] Jante Markel MURILLO SMendez OR ARPIT DO [facility] CPT-4: 96519 12/16/2011 ([id number]) OFFICE/OUTPATIENT VISIT EST Diagnosis: DM W/O COMPLICATION TYPE II, 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] Diagnosis: HYPERTENSION[ICD9: 401.9] Diagnosis: HYPERLIPIDEMIA NEC/NOS[ICD9: 272.4] Neela GREGORIO SMendez ORENDER DO [facility] CPT-4: 24373 12/03/2011 ([id number]) OFFICE/OUTPATIENT VISIT EST Diagnosis: DM W/O COMPLICATION TYPE II[ICD9: 250.00] Diagnosis: HYPERLIPIDEMIA NEC/NOS[ICD9: 272.4] Diagnosis: HYPERTENSION[ICD9: 401.9] Neela Cunningham ORE NDER DO [facility] CPT-4: 01636 08/29/2011 OFFICE/OUTPATIENT VISIT EST Diagnosis: DM W/O COMPLICATION TYPE II[ICD9: 250.00] Diagnosis: HYPERLIPIDEMIA NEC/NOS[ICD9: 272.4] Diagnosis: HYPERTENSION[ICD9: 401.9] Neela MURILLO SMendez [employer] [facility] [facility] CPT-4: 93530 05/30/2011 OFFICE/OUTPATIENT VISIT EST Diagnosis: SKIN SENSATION DISTURB[ICD9: 782.0] Neela GREGORIO SMendez ORENDER DO [facility] CPT-4: 95203 01/29/2011 OFFICE/OUTPATIENT VISIT EST Diagnosis: SKIN SENSATION DISTURB[ICD9: 782.0] Neela GREGORIO SMendez ORENDER DO [facility] CPT-4: 41323 01/14/2011 OFFICE/OUTPATIENT VISIT EST Neela MURILLO SMendez [employer] [facility] CPT- 4: 75113 01/01/2011 OFFICE/OUTPATIENT VISIT EST Neela MURILLO SMendez [employer] [facility] CPT- 4: 17988 11/29/2010 ([id number]) OFFICE/OUTPATIENT VISIT EST Neela HORAN SMendez [facility]END[facility] CPT-4: 90385 08/28/2010 ([id number]) OFFICE/OUTPATIENT VISIT, EST Neela WILDE SMendez [facility]END[facility] CPT-4: 39248 06/05/2010 ([id number]) OFFICE/OUTPATIENT VISIT, [facility] CPT-4: 49978 02/05/2010 ([id number]) OFFICE/OUTPATIENT VISIT, [facility] [employer] CPT-4: 40550 10/09/2009 ([id number]) OFFICE/OUTPATIENT VISIT, [facility] [employer] CPT-4: 13240 08/22/2009 Plan of Care Planned Activity Notes Codes Status Date Visit Diagnosis Plan: Advanced chronic obstructive pul monary disease Discussion: Continue oxygen and pulmonary rehab Follow Up: 3 months ICD-9 : 496 ICD-10 : J44.9 05/10/2019 Visit Diagnosis Plan: Lymphoma involving lung Discussi on: Doing weekly lab and chemo ICD-9 : 202.82 ICD-10 : C85.99 05/10/2019 Appointment: Neela Hyman WPtel: [address] [place] [address] FOLLOW UP 05/10/2019 Appointment: Neela Hyman WPtel: [address] [place] [address] he called 04/14/19-- he was at physical [...] : E87.6 03/29/2019 Appointment: Neela Hyman WPtel: [address] [place] [address] Hospital Follow Up 03/29/2019 Appointment: Neela Hyman WPtel: [address] [place] [address] [place] INJECTION 03/04/2019 Visit Diagnosis Plan: Chronic obstructiv e pulmonary disease with (acute) exacerbation Discussion: Increase SVNS with duoneb to QID Prednisone taper ICD-9 : 491.21 ICD-10 : J44.1 01/05/2019 Visit Diagnosis Plan: Other nonspecific abnormal findi ng of lung field Discussion: Referral to pulmonology--will likely need bronchoscopy--path results discussed ICD-9 : 786.6 ICD-10 : R91.8 01/05/2019 Appointment: Neela Hyman WPtel: [address] [place] [address] FOLLOW UP 01/05/2019 Patient Education: prednisone- [employer] Coupon [phone] https://www.[employer]/resources/getResource/61/l2kc7975-675j-6f96-cv Completed 01/05/2019 Care Plan: Referral Order SNOMED-CT : 30 [id number] Pending 01/05/2019 Appointment: Neela Hyman WPtel: [address] [place] [address] [place] CANCELED 12/21/2018 Visit Diagnosis Plan: Tinea corporis Discussion: Diflu can--hold simvastatin and fenofibrate while taking ICD-9 : 110.5 ICD-10 : B35.4 12/09/2018 Visit Diagnosis Plan: Solitary pulmonary nodule Discus esmer: CT guided needle biopsy of RUL lung mass ICD-9 : 793.11 ICD-10 : R91.1 12/09/2018 Appointment: Neela Hyman WPtel: [address] [place], [place] [address] [place] FOLLOW UP 12/09/2018 Appointment: Gely Harp [address] [place], [place] [address] [address] NO SHOW 12/01/2018 Visit Diagnosis Plan: Other [...] : J44.9 11/24/2018 Appointment: Neela Hyman WPtel: [address] [place] [address] [place] FOLLOW UP 11/24/2018 Care Plan: PET IMAGE FULL BODY LOINC : 4 2711-2 Pending 11/24/2018 Appointment: Neela Hyman WPtel: [address] [place] [address] [place] Consult 09/21/2018 Visit Diagnosis Plan: Pneumonia, unspecified organism Discussion: Patient clinically improved. Recent CT scan from 09/07 showed unresolved right upper lobe pneumonia. Finished another 7 days of levaquin. Will repeat CBC early next week. Order sent with patient to get done at [facility]. FU CT recommended in 4 weeks. Patient states understanding. ICD-9 : 486 ICD-10 : J18.9 09/16/2018 Appointment: Amita Henderson [address] [place] [address] FOLLOW UP 09/16/2018 Visit Diagnosis Plan: Pneumonia, unspecified organism Discussion: Clinically patient feels and looks much better but need CT scan of chest due to ongoing round pneumonia in association with his known lymphoma ICD-9 : 486 ICD-10 : J18.9 09/03/2018 Appointment: Neela Hyman WPtel: [address] [place] [address] [place] FOLLOW UP 09/03/2018 Care Plan: CT [...] ICD-10 : Z87.01 08/27/2018 Appointment: Amita Henderson ALOHA [id number] FOLLOW UP 08/27/2018 Visit Diagnosis Plan: Other [...] ICD-10 : I10 08/13/2018 [id number] FOLLOW UP 08/13/2018 Appointment: [facility] Henderson [facility] CANCELED 08/13/2018 Patient Education: prednisone- [employer] Coupon [phone] https://www.[employer]It/samplemd/resources/getResource/61/dh66wu8v-7x22-5pm8-8r Completed 08/13/2018 Visit Diagnosis Plan: Other specified [...] ICD-10 : J18.9 08/11/2018 Appointment: Amita Henderson [address] [id number] ACUTE ILLNESS 08/11/2018 Care Plan: CHEST X-RAY 2VW FRONTAL&LATL LOINC : 58849-8 Pending 07/20/2018 Visit Diagnosis Plan: Dyspnea, unspecified Discussion: CXR- to be completed at the hospital. Will call with results and any adjustments in plan. Solumedrol 125 administered in clinic Prednisone 20 mg BID x 5 days- start tomorrow ICD-9 : 786.09 ICD-10 : R06.00 07/16/2018 Appointment: Amita Henderson [facility] [address] [id number] ACUTE ILLNESS 07/16/2018 Patient Education: prednisone- [employer] Coupon [phone] https://www.[employer].com/samplemd/resources/getResource/61/86q9k1wo-kn40-0sx8-p8 Completed 07/16/2018 Visit Diagnosis Plan: Acute bronchitis due to other sp ecified organisms Discussion: Kenalog 40 mg IM administered in clinic. [facility]. Take as directed. Continue nebulizer and Trelegy. Follow up if symptoms are not improving with treatment regimen. Patient states understanding of all instruction. ICD-9 : 466.0 ICD-10 : J20.8 07/13/2018 Appointment: Amita Henderson [address] [place] [id number] ACUTE ILLNESS 07/13/2018 Patient Education: doxycycline hyclate- OptimizeRX Cou saritha [id number] https://www.[employer]/resources/getResource/61/0h159n00-2p6h-0785-1t Completed 07/13/2018 Care Plan: [place] : [address]-6 Pending 07/13/2018 Care Plan: CBC Pending 07/13/2018 Care Plan: A1C HPLC LOINC : 75279-2 Pending 07/13/2018 Visit Diagnosis Plan: Mixed hyperlipidemia [...] : I10 06/03/2018 Appointment: Neela Hyman WPtel: [address] [place] [address] FOLLOW UP 06/03/2018 Visit Diagnosis Plan: Chronic [...] ICD-10 : J44.9 05/04/2018 Appointment: Gely Harp [address] [id number] ACUTE ILLNESS 05/04/2018 Visit Diagnosis Plan: Localized edema Discussion: Cont inue lasix and potassium at every other day Recheck lab and fwup in 3mos Follow Up: 3 months ICD-9 : 782.3 ICD-10 : R60.0 03/03/2018 Appointment: Neela Hyman WPtel: [facility]7 [facility] FOLLOW UP 03/03/2018 Patient Education: Patient Medication Summary Completed 03/03/2018 Visit Diagnosis Plan: Localized edema Discussion: Finch ge lasix and potassium to every other day Check Chem 7 in 2 weeks and fwup ICD-9 : 782.3 ICD-10 : R60.0 02/17/2018 Appointment: Neela Hyman WPtel: [facility]4 [address] FOLLOW UP 02/17/2018 Patient Education: Patient Medication [...] : R60.0 02/10/2018 Appointment: Neela Hyman WPtel: [facility] FOLLOW UP 02/10/2018 Patient Education: Patient Medication [...] L02.212 11/05/2017 Appointment: Neela Hyman WPtel: [address] [facility] FOLLOW UP 11/05/2017 Patient Education: Patient Medication Summary Completed 11/05/2017 Patient Education: Patient Medication Summary Completed 11/03/2017 Care Plan: [place] : [address]-8 Pending 11/03/2017 Care Plan: LIPID PANEL LOINC : 49931-6 Pending 11/03/2017 Care Plan: CBC Pending 11/03/2017 Care Plan: A1C HPLC LOINC : 10720-9 Pending 11/03/2017 Visit Diagnosis Plan: Allergic urticaria [...] ICD-10 : L50.0 09/09/2017 Appointment: Gely Harp [address] [place], [place] [phone] ACUTE ILLNESS 09/09/2017 Patient Education: Patient [...] ICD-10 : R59.1 08/07/2017 Appointment: Gely Harp [address] [place] [address] Follow Up 08/07/2017 Patient Education: Patient Medication Summary Completed 08/07/2017 Visit Diagnosis Plan: Type 2 diabetes mellitus without complications Discussion: Accuchecks daily Lab discussed Continue current meds ICD-9 : 250.00 ICD-10 : E11.9 08/04/2017 Visit Diagnosis Plan: Essential (primary) hypertension Discussion: Increase Cardizem CD to 360mg daily ICD-9 : 401.9 ICD-10 : I10 08/04/2017 Appointment: Neela Hyman WPtel: [facility] [address] FOLLOW UP 08/04/2017 Patient Education: Patient Medication Summary Completed 08/04/2017 Patient Education: Patient Medication Summary Completed 07/31/2017 Care Plan: [place] : [address]-6 Pending 07/31/2017 Care Plan: ASSAY THYROID STIM HORMONE Pen ding 07/31/2017 Care Plan: LIPID PANEL LOINC : 49312-5 Pending 07/31/2017 Care Plan: CBC Pending 07/31/2017 Care Plan: A1C HPLC LOINC : 40068-6 Pending 07/31/2017 Patient Education: Patient Medication Summary Completed 06/19/2017 Patient Education: Patient Medication Summary Completed 06/09/2017 Care Plan: CT SOFT TISSUE [place] : [address]-5 Pending 06/09/2017 Visit Diagnosis Plan: Acute sialoadenitis [...] ICD-10 : B02.9 06/04/2017 Appointment: Gely Harp [address] [place], [place] [phone] ACUTE ILLNESS 06/04/2017 Patient Education: Patient [...] ICD-10 : B02.9 06/02/2017 Appointment: Gely Harp [address] [place], [place] [id number] ACUTE ILLNESS 06/02/2017 Patient Education: Patient [...] E11.9 05/05/2017 Appointment: Neela Hyman WPtel: [address] [facility] FOLLOW UP 05/05/2017 Patient Education: Patient Medication Summary Completed 05/05/2017 Patient Education: Patient Medication Summary Completed 05/01/2017 Care Plan: A1C HPLC LOINC : 36028-4 Pending 05/01/2017 Visit Diagnosis Plan: Chronic obstructiv [...] ICD-10 : H61.23 04/10/2017 Appointment: Gely Harp [address] [place] [address] ACUTE ILLNESS 04/10/2017 Patient Education: Patient Medication Summary Completed 04/10/2017 Appointment: Neela Hyman WPtel: [address] [place] [address] INJECTION 03/28/2017 Patient Education: Patient Medication Summary [...] : J44.9 02/03/2017 Appointment: Neela Hyman WPtel: [facility] [address] FOLLOW UP 02/03/2017 Patient Education: Patient Medication Summary Completed 02/03/2017 Patient Education: Patient Medication Summary Completed 01/30/2017 Care Plan: [place] : [address]-3 Pending 01/30/2017 Care Plan: LIPID PANEL LOINC : 98342-3 Pending 01/30/2017 Care Plan: CBC Pending 01/30/2017 Care Plan: A1C HPLC LOINC : 57814-4 Pending 01/30/2017 Care Plan: ASSAY OF PSA [...] E11.65 10/30/2016 Appointment: Neela [facility]Ptel[facility] [address] [facility] [place] 6/6 lm ~sl / confirmed~sl FOLLOW UP 11/2016 Patient Education: Patient Medication Summary Completed 10/30/2016 Patient Education: Patient Medication Summary Completed 10/24/2016 Visit Diagnosis Plan: Acute bronchitis, unspecified Di scussion: Patient sounds and looks much improved Continue current regimen Keep appt with Dr Levi for Friday Follow up PRN ICD-9 : 466.0 ICD-10 : J20.9 08/30/2016 Appointment: Sammi [facility]ajera [facility] [facility] [place] 4/6 rang and rang rang 4/7 [...] ICD-10 : J20.9 08/27/2016 Appointment: Sammi Najera [address] [place], [place] [address] FOLLOW UP 08/27/2016 Patient Education: Patient Medication Summary Completed 08/27/2016 Care Plan: Referral Order SNOMED-CT : 30 [id number] Pending 08/27/2016 Visit Diagnosis Plan: Type 2 [...] I10 07/02/2016 Appointment: Neela Hyman WPtel: [address] [place], [place] [address] 07/01 rang and rang` FOLLOW UP 7 Patient Education: Patient Medication Summary Completed 07/02/2016 Patient Education: Patient Medication Summary Completed 06/27/2016 Care Plan: LIPID PANEL LOINC : 71469-6 Pending 06/27/2016 Care Plan: [place] : [address]-6 Pending 06/27/2016 Care Plan: A1C HPLC LOINC : 14479-4 Pending 06/27/2016 Visit Diagnosis Plan: Acute bronchitis, [...] : J20.9 06/14/2016 Appointment: Sammi Najera [address] [place], [place] [address] FOLLOW UP 06/14/2016 Patient Education: Patient Medication [...] ICD-10 : J20.9 06/13/2016 Appointment: Sammi Najera [address] [place] [address] ACUTE ILLNESS 06/13/2016 Patient Education: Patient Medication Summary Completed 06/13/2016 Care Plan: CHEST X-RAY 2VW FRONTAL&LATL LOINC : 60641-9 Pending 06/13/2016 Visit Plan: Increase metoprolol to 100mg po BID BP readings and BP check in 1month 05/14/2016 Appointment: Neela Hyman WPtel: [address] [place] [address] 05/13 rang and rang`sl FOLLOW UP 6 Patient Education: Patient Medication Summary Completed 05/14/2016 Visit Plan: Increase metoprolol to 50mg BID BP check in 1 week f/u BP appt 2 weeks consider musculoskeletal if pain returns 04/29/2016 Appointment: Neela Hyman WPtel: [address] [place], [place] [address] 04/25 confimred~sl FOLLOW UP 04/29/2016 Patient Education: Patient Medication Summary Completed 04/29/2016 Visit Plan: Stat CT scan of abdomen/pelv is to look for stone Hydrate and use tramadol prn Increase metoprolol to 25mg po BID Will see urology pending CT scan results 04/22/2016 Appointment: Neela Hyman WPtel: [address] [place], [place] [phone] 04/17 confirmed-sp ACUTE ILLNESS 04/22/2016 Patient Education: [...] shot 04/01/2016 Appointment: Neela Hyman WPtel: [address] [place] [address] FOLLOW UP 04/01/2016 Patient Education: Patient Medication Summary Completed 04/01/2016 Patient Education: [facility] - Saving AutoInj - 18-64 - Dynamic Heber l ID Completed 04/01/2016 Patient Education: Patient Medication Summary Completed 03/28/2016 Care Plan: A1C HPLC LOINC : 48044-6 Pending 03/28/2016 Care Plan: [place] : [address]-8 Pending 03/28/2016 Visit Plan: Lab discussed Continue curre nt meds Accuchecks daily 11/30/2015 Appointment: Neela Hyman WPtel: [address] [place] [address] 11/28 confirmed~sl FOLLOW UP 11/30/2015 Patient Education: Patient Medication Summary Completed 11/30/2015 Appointment: Neela Hyman WPtel: [address] [place] [address] US RESCHEDULED 11/28/2015 Patient Education: Patient Medication Summary Completed 11/23/2015 Care Plan: [place] : 60[address]-3 Pending 11/23/2015 Care Plan: LIPID PANEL LOINC : 70839-0 Pending 11/23/2015 Care Plan: CBC Pending 11/23/2015 Care Plan: A1C HPLC LOINC : 17959-3 Pending 11/23/2015 Visit Plan: Lab discussed Accuchecks richard ly Continue current meds Cymbalta helping with feet and mood 08/29/2015 Appointment: Neela Hyman WPtel: [address] [place], [place] [address] US FOLLOW UP 08/29/2015 Patient Education: Patient Medication Summary Completed 08/29/2015 Visit Plan: Check CXR Stop all steroids and steroid inhalers Use SVN with but change to duoneb Add singulair for allergy etiology Change fluoxetine to cymbalta 60mg daily Viagra samples given to try prn--warned of no nitrates 08/14/2015 Appointment: Neela Hyman WPtel: [phone] [facility] lm to reschedule ~sl 07/27 lm ~sl 08/09 busy 08/10 conf irmed-sp Annual Well Visit 08/14/2015 Patient Education: Patient Medication Summary Completed 08/14/2015 Care Plan: CHEST X-RAY 2VW FRONTAL&LATL LOINC : 40528-6 Ordered 08/14/2015 Visit Plan: Decadron 8mg given [...] as expected 08/09/2015 Appointment: Sammi Najera [address] [place] [id number] ER Follow UP 08/09/2015 Patient Education: Patient Medication Summary Completed 08/09/2015 Patient Education: [facility] - Saving AutoInj - 18-64 - Dynamic [...] it 05/22/2015 Appointment: Neela Hyman WPtel: [phone] [facility] 05/17 confirmed~sl FOLLOW UP 05/22/2015 Patient Education: Patient Medication Summary Completed 05/22/2015 Patient Education: Patient Medication Summary Completed 05/15/2015 Visit Plan: Obtain EMGs done at [place] from when fractured left arm Lab discussed Accuchecks daily 02/13/2015 Appointment: Neela Hyman WPtel: [address] [place], [place] [phone] 02/10 confrimed FOLLOW UP 02/13/2015 Patient Education: Patient Medication Summary Completed 02/13/2015 Patient Education: Patient Medication Summary Completed 02/09/2015 Visit Plan: discussed lab add fenofibrat e 134mg po daily recheck fasting lab in 3 months, CBC, CMP, Lipids, hgb AIC 11/07/2014 Appointment: Neela Hyman WPtel: [address] [place], [place] [phone] 11/04 appt confirmed cn FOLLOW UP 015 Patient Education: Patient Medication Summary Completed 11/07/2014 Patient Education: Patient Medication Summary Completed 11/03/2014 Visit Plan: Continue loratadine 10mg richard ly Notify if symptoms return 10/04/2014 Appointment: Neela Hyman WPtel: [address] [place], [place] [phone] confirmed on 10/03 at 2:42pm FOLLOW UP 09/23 Patient Education: Patient Medication Summary Completed 10/04/2014 Appointment: Neela Hyman WPtel: [address] [place], [place] [phone] ACUTE ILLNESS 09/28/2014 Appointment: Loern Garza WPtel: [address] [place], [place] [phone] FOLLOW UP 09/22/2014 Patient Education: Patient Medication Summary Completed 09/22/2014 Appointment: Loren Garza WPtel: [address] [place], [place] [phone] ACUTE ILLNESS 09/21/2014 Patient Education: Patient Medication Summary Completed 09/21/2014 Patient Education: [facility] - Saving AutoInj - 18+ - Dynamic Portal ID Completed 09/21/2014 Visit Plan: Lab discussed Continue daily accuchecks Continue current meds 06/28/2014 Appointment: Neela Hyman WPtel: [address] [place] [address] FOLLOW UP 06/28/2014 Patient Education: Patient Medication Summary Completed 06/28/2014 Patient Education: Patient Medication Summary Completed 06/23/2014 Appointment: Sarah Sunshine WPtel: [address] [place] [address] ACUTE ILLNESS 06/10/2014 Patient Education: Patient Medication Summary Completed 06/10/2014 Patient Education: [facility] - Saving AutoInj - 18+ - Dynamic Portal ID Completed 06/10/2014 Visit Plan: Lab discussed Continue daily accuchecks Continue current meds 03/29/2014 Appointment: Neela Hyman WPtel: [address] [place] [address] FOLLOW UP 03/29/2014 Patient Education: Patient Medication Summary Completed 03/29/2014 Patient Education: Patient Medication Summary Completed 03/23/2014 Visit Plan: Lab discussed Continue curre nt meds and accuchecks See surgery for removal of hand lesion 11/30/2013 Appointment: Neela Hyman WPtel: [address] [place] [address] 11/29 no answer FOLLOW UP 11/30/2013 Patient Education: Patient Medication Summary Completed 11/30/2013 Visit Plan: Lab discussed Continue curre nt meds 08/03/2013 Appointment: Neela Hyman WPtel: [address] [place] [address] FOLLOW UP 08/03/2013 Patient Education: Patient Medication Summary Completed 08/03/2013 Visit Plan: Lab Discussed Will continue current meds and pt will get back on diet/exercise Check lab in 4mos and fwup 04/06/2013 Appointment: Neela Hyman WPtel: [address] [place], [place] [id number] FOLLOW UP 04/06/2013 Patient Education: Patient Medication Summary Completed 04/06/2013 Visit Plan: Lab discussed Continue daily accuchecks 12/01/2012 Appointment: Neela Hyman WPtel: [address] [place], [place] [phone] 11/30 no answer FOLLOW UP 12/01/2012 Patient Education: Patient Medication Summary Completed 12/01/2012 Visit Plan: Continue current meds and da russell accuchecks Lab discussed 08/04/2012 Appointment: Neela Hyman WPtel: [address] [place], [place] [id number] FOLLOW UP 08/04/2012 Patient Education: Patient Medication Summary Completed 08/04/2012 Appointment: Neela Hyman WPtel: [address] [place], [place] [phone] [place] [address] 06/01/2012 Patient Education: Patient Medication Summary Completed 06/01/2012 Appointment: Janet Jean Baptiste WPtel: [address] [place] [address] FOLLOW UP 05/29/2012 Patient Education: Patient Medication Summary Completed 05/29/2012 Visit Plan: pt states Dr. Hyman told h is to increase his Prozac dose while she was talking to her at [facility]. Discussed that pt. should not increase or decrease dosage without 's knowledge. Pt. will seek hearing test here in town at the hearing aid place on [address]. Discussed that ear pain is likely caused by sinus pressure. Pt. will notify if no improvement. 05/25/2012 Appointment: Janet Jean Baptiste WPtel: [address] [place], [place] [phone] ACUTE ILLNESS 05/25/2012 Patient Education: Patient Medication Summary Completed 05/25/2012 Visit Plan: Continue current meds Contin ue daily accuchecks but alternate times Increase fish oil to 3gm daily 04/07/2012 Appointment: Neela Hyman WPtel: [address] [place], [place] [phone] 04/06 vm FOLLOW UP 04/07/2012 Patient Education: Patient Medication Summary Completed 04/07/2012 Appointment: Janet Jean Baptiste: [address] [place], [place] [phone] ACUTE ILLNESS 12/16/2011 Patient Education: Patient Medication Summary Completed 12/16/2011 Visit Plan: Increase 12/03/2011 Appointment: Neela Hyman WPtel: [address] [place], [place] [phone] FOLLOW UP 12/03/2011 Patient Education: Patient Medication Summary Completed 12/03/2011 Visit Plan: Continue current meds Contin ue accuchecks 08/29/2011 Appointment: Neela Hyman WPtel: [address] [place] [address] FOLLOW UP 08/29/2011 Patient Education: Patient Medication Summary Completed 08/29/2011 Visit Plan: Continue current meds except restart zocor 05/30/2011 Appointment: Neela Hyman WPtel: [address] [place] [address] FOLLOW UP 05/30/2011 Patient Education: Patient Medication Summary Completed 05/30/2011 Visit Plan: Continue tennis elbow strap May go back to weight-lifing--light weigts every other day 01/29/2011 Appointment: Neela Hyman WPtel: [address] [place], [place] [phone] FOLLOW UP 01/29/2011 Patient Education: Patient Medication Summary Completed 01/29/2011 Visit Plan: Continue tennis elbow strap and anti-inflammatories 01/14/2011 Appointment: Neela Hyman WPtel: [address] [place], [place] [phone] [place] FOLLOW UP 01/14/2011 Appointment: Janet Jean Baptiste WPtel: [address] [place], [place] [phone] NEW PATIENT 01/14/2011 Patient Education: Patient Medication Summary Completed 01/14/2011 Appointment: Neela Hyman WPtel: [address] [place] [address] FOLLOW UP 01/08/2011 Appointment: Neela Hyman WPtel: [address] [place] [address] FOLLOW UP 01/01/2011 Appointment: Neela Hyman WPtel: [address] [place] [address] 01/01/2011 Patient Education: Patient Medication Summary Completed 01/01/2011 Visit Plan: Veramyst samples given. Pt. will let me know if Aluren or Singulair samples help. Septra DS twice daily for 10 days. We can phone in a preventative allergy RX if Lauren or Singulair works better. Pt. will notify if no improvment. May add Medrol dose pack if indicated. Discussed at length carb count (goal of 20-80 carbs) daily. Carb counter given. 11/29/2010 Appointment: Janet Jean Baptiste WPtel: [address] [place] [address] ACUTE ILLNESS 11/29/2010 Patient Education: Patient Medication Summary Completed 11/29/2010 Visit Plan: Cont current meds Check CMP, Lipids, HbA1C 08/28/2010 Appointment: Neela Hyman WPtel: [address] [place] [address] FOLLOW UP 08/28/2010 Patient Education: Patient Medication Summary Completed 08/28/2010 Visit Plan: Cont current meds and accuch ecks Add Zocor 40mg q HS Check Lipids and HbA1C in 3mos 06/05/2010 Appointment: Neela Hyman WPtel: [address] [place] [address] FOLLOW UP 06/05/2010 Patient Education: Patient Medication Summary Completed 06/05/2010 Visit Plan: Check Lipids and HbA1C 02/05/2010 Appointment: Neela Hyman WPtel: [address] [place] [address] FOLLOW UP 02/05/2010 Patient Education: Patient Medication Summary Completed 02/05/2010 Visit Plan: HbA1C in 3mos. Continue Accu checks BID alternating times. Check HbA1C, CMP, Lipids 10/09/2009 Appointment: Neela Hyman WPtel: [phone] [facility] FOLLOW UP 10/09/2009 Patient Education: Patient Medication Summary Completed 10/09/2009 Visit Plan: Saline nasal flushes prn. Ty lenol/Motrin prn headache. Notify if persists/symptoms worsening. 08/22/2009 Appointment: Neela Hyman WPtel: [phone] [facility] ACUTE ILLNESS 08/22/2009 Patient Education: Patient Medication Summary Completed 08/22/2009 Referral: Aubrey Rand WPtel: [address] [place], [place] [phone] [place] Office will verfy his insurance then they will contact patient Completed Referral: Shahbaz Brennan WPtel: [address] [facility] 201 [id number] [place] Referral Completed Referral: Ion Levi [address] [facility] C&D [id number] [place] Referral Appointment Requested Referral: Ion Levi [address] [facility] C&D [id number] [place] Referral Appointment Requested Instructions Comment . [...] with it . Obtain EMGs done at [place] from when fractured left arm Lab discussed [...] while she was talking to her at [facility]. Discussed that pt. should not increase or decrease dosage without Dr's knowledge. Pt. will seek hearing test here in town at the hearing aid place on [address]. Discussed that ear pain is likely caused [...]
--- OUTSIDE RECORDS SUMMARY | 2019-12-09 09:18 | XMS REPORT | CCD ---
Author Author Michael Hyman D.O. Organization [facility] Address [address] [place] [address] Phone Care Team Providers Care Educational Technology Coordinator Name Role Phone Neela Hyman D.O., PP Unavailable CCM Unavailable Summary Purpose Interface Exchange Insurance Providers Payer name Policy type / Coverage type Covered green party ID Effective Begin Date Effective End Date ABS FOR [employer] Commercial Insurance [id number] Unknown Family History Family History data not found Social History Social History Element Codes Description Effective Dates Marital status Unknown 05/30/[address]: 7578264 Former smoker quit 25 years ago 01/01/2011 [...] Fill Instructions Keflex 500 mg capsule RxNorm: 286131 1 Capsule(s) Oral three ti mes a day 07/06/2019 07/13/2019 Active Singulair 10 mg tablet RxNorm: 699015 TAKE ONE TABLET BY MOUTH EVERY EVENING 07/06/2019 01/02/2020 Active Reselected prescribe r from [facility] to [facility] Singulair 10 mg tablet RxNorm: 232632 TAKE ONE TABLET BY MOUTH EVERY EVENING 06/22/2019 07/05/2019 Inactive Reselected prescribe r from [facility] MAHER to [facility] Zocor 40 mg tablet RxNorm: 935841 TAKE ONE TABLET BY M OUTH EVERY NIGHT AT BEDTIME 06/21/2019 11/17/2019 Active MagOx 400 mg (241.3 mg magnesium) tablet RxNorm: 283064 1 Table t(s) Oral QD 06/21/2019 08/20/2019 Active diltiazem ER 360 mg capsule,24 hr,extended release RxNorm: 8 10947 TAKE ONE CAPSULE BY MOUTH AT BEDTIME -REPLACES 300MG 05/17/2019 11/12/2019 Active MagOx 400 mg (241.3 mg magnesium) tablet RxNorm: 948332 1 Table t(s) Oral QD 04/26/2019 06/20/2019 Inactive Lasix 40 mg tablet RxNorm: 833242 40 MG PO DAILY 04/12/2019 No Stop Da te Active Benicar 40 mg tablet RxNorm: 566727 1 Tablet(s) Oral QD 03/29/2019 Active potassium chloride ER 20 mEq tablet,extended release RxNorm: 918963 1 Tablet(s) Oral two times a day 03/29/2019 06/27/2019 Inactive metformin 500 mg tablet RxNorm: 397417 2 Tablet(s) Oral two afshan es a day 03/29/2019 No Stop Date Active potassium chloride ER 20 mEq tablet,extended release RxNorm: 374070 1 Tablet(s) Oral QD 03/29/2019 03/28/2019 Inactive Benicar 40 mg tablet RxNorm: 494790 1 Tablet(s) Oral QD 03/29/2019 Inactive MagOx 400 mg (241.3 mg magnesium) tablet RxNorm: 728713 1 Table t(s) Oral QD 03/29/2019 04/25/2019 Inactive fenofibrate micronized 134 mg capsule RxNorm: 470690 TA KE ONE CAPSULE BY MOUTH EVERY DAY 03/05/2019 08/31/2019 Active duloxetine 60 mg capsule,delayed release RxNorm: 455639 1 Capsu le(s) PO QD 01/28/2019 07/26/2019 Active Trelegy Ellipta 100 mcg-62.5 mcg-25 mcg powder for inhalatio n RxNorm: 2257415 1 Puff(s) INH QD 01/06/2019 12/31/2019 Active 90 day supply prednisone 20 mg tablet RxNorm: 155974 1 Tablet(s) PO T ID for 3 days then 1 po BID for 3 days then 1 po daily for 3 days 01/05/2019 03/28/2019 Inacti ve metformin ER 1,000 mg tablet,extended release 24hr RxNorm: 1 223770 TAKE TWO TABLETS (1000MG) BY MOUTH TWO TIMES A DAY 12/22/2018 03/28/2019 Inacti ve Diflucan 100 mg tablet RxNorm: 500160 1 Tablet(s) PO QD 12/09/2018 Inactive albuterol sulfate 2.5 mg/3 mL (0.083 %) solution for n ebulization RxNorm: 312816 3 Milliliter(s) INH ONE VIAL VIA NEBULIZER EVERY 4 HOURS 019 07/21/2019 Active [AttnRPh: Saving apply/adjudicate RxGRP: SG20 RxBIN:[id number] RxPCN: ID#:[id number]] prednisone 20 mg tablet RxNorm: 042309 1 Tablet(s) PO B ID for 4 days then 1 po daily for 4 days 11/24/2018 01/04/2019 Inactive Trelegy Ellipta 100 mcg-62.5 mcg-25 mcg powder for inhalatio n RxNorm: 3495147 1 Puff(s) INH QD 10/27/2018 01/06/2019 Inactive 90 day supply metoprolol succinate ER 100 mg tablet,extended release 24 hr RxNorm: 352018 TAKE ONE TABLET BY MOUTH TWICE A DAY 10/13/2018 07/09/2019 Active diltiazem ER 360 mg capsule,24 hr,extended release RxNorm: 8 00644 TAKE ONE CAPSULE BY MOUTH AT BEDTIME -REPLACES 300MG 10/13/2018 04/10/2019 Inactive Trelegy Ellipta 100 mcg-62.5 mcg-25 mcg powder for inhalatio n RxNorm: 8372908 INHALE ONE PUFF ONCE DAILY 09/07/2018 10/27/2018 Inactive Levaquin 750 mg tablet RxNorm: 790783 1 Tablet(s) PO QD 09/07/2018 Inactive Levaquin 750 mg tablet RxNorm: 990699 1 Tablet(s) PO QD 09/07/2018 Inactive prednisone 20 mg tablet RxNorm: 125460 2 Tablet(s) PO QAM 08/13/2018 08/19/2018 Inactive Levaquin 500 mg tablet RxNorm: 194391 1 Tablet(s) PO QD 08/11/2018 Inactive fenofibrate micronized 134 mg capsule RxNorm: 904190 TA KE ONE CAPSULE BY MOUTH EVERY DAY 08/10/2018 02/05/2019 Inactive prednisone 20 mg tablet RxNorm: 497854 1 Tablet(s) PO BID 07/16/2018 07/20/2018 Inactive doxycycline hyclate 100 mg capsule RxNorm: 6448794 1 Capsule(s) PO BID 07/13/2018 07/22/2018 Inactive duloxetine 60 mg capsule,delayed release RxNorm: 347534 TAKE ONE CAPSULE BY MOUTH ONCE A DAY 07/08/2018 01/28/2019 Inactive Lasix 40 mg tablet RxNorm: 577736 1 TABLET(S) PO QAM 06/08/201809/05 Inactive potassium chloride ER 20 mEq tablet,extended release(p art/cryst) RxNorm: 7475951 1 TABLET(S) PO QD 06/08/2018 09/05/2018 Inactive metformin ER 1,000 mg tablet,extended release 24hr RxNorm: 1 135381 TAKE TWO TABLETS (1000MG) BY MOUTH TWO TIMES A DAY 06/01/2018 11/27/2018 Inacti ve Benicar HCT 40 mg-25 mg tablet RxNorm: 496056 TAKE ONE TABLET BY MOUTH ONCE DAILY 05/11/2018 03/28/2019 Inactive Zocor 40 mg tablet RxNorm: 501037 TAKE ONE TABLET BY M OUTH EVERY NIGHT AT BEDTIME 05/11/2018 06/20/2019 Inactive Trelegy Ellipta 100 mcg-62.5 mcg-25 mcg powder for inhalatio n RxNorm: 1108706 1 PUFF(S) INH QD 04/06/2018 07/04/2018 Inactive diltiazem ER 360 mg capsule,24 hr,extended release RxNorm: 8 43573 1 Capsule(s) PO QHS replaces 300mg dose 03/30/2018 09/25/2018 Inactive Trelegy Ellipta 100 mcg-62.5 mcg-25 mcg powder for inhalatio n RxNorm: 0428490 1 Puff(s) INH QD 02/24/2018 02/23/2018 Inactive Trelegy Ellipta 100 mcg-62.5 mcg-25 mcg powder for inhalatio n RxNorm: 4789830 1 Puff(s) INH QD 02/24/2018 02/23/2018 Inactive Trelegy Ellipta 100 mcg-62.5 mcg-25 mcg powder for inhalatio n RxNorm: 6792218 1 Puff(s) INH QD 02/24/2018 04/05/2018 Inactive Lasix 40 mg tablet RxNorm: 922171 1 Tablet(s) PO QAM 02/10/201803/11 Inactive potassium chloride ER 20 mEq tablet,extended release(p art/cryst) RxNorm: 1852929 1 Tablet(s) PO QD 02/10/2018 03/11/2018 Inactive fenofibrate micronized 134 mg capsule RxNorm: 013330 1 Capsule( s) PO QD 01/30/2018 07/28/2018 Inactive metoprolol succinate ER 100 mg tablet,extended release 24 hr RxNorm: 307962 TAKE ONE TABLET BY MOUTH TWICE A DAY 12/30/2017 09/25/2018 Inactive metformin ER 1,000 mg tablet,extended release 24hr RxNorm: 1 527743 1 Tablet(s) PO BID 11/17/2017 05/15/2018 Inactive [SAVINGS FOR NON -COVERED DRUGS -- BIN:779436, PCN: ASPROD1, Group: XXXXX, ID# [id number], Questions: . THIS IS NOT INSURANCE.] Benicar HCT 40 mg-25 mg tablet RxNorm: 469361 1 Tablet(s) PO QD 05/10/2018 Inactive [SAVINGS FOR NON-COVERED JESU GS -- BIN:803790, PCN: ASPROD1, Group: XXXXX, ID# [id number], Questions: . THIS IS NOT INSURANCE.] Bactroban 2 % topical cream RxNorm: 193226 Application TOP BID 10/2409/02/2018 Inactive clindamycin HCl 300 mg capsule RxNorm: 856640 2 Capsule(s) PO TID 0 11/05/2017 11/18/2017 Inactive duloxetine 60 mg capsule,delayed release RxNorm: 843222 Capsule(s) TAKE ONE CAPSULE BY MOUTH ONCE DAILY 09/24/2017 09/23/2017 Inactive triamcinolone acetonide 0.1 % topical ointment RxNorm: 9184880 1 TOP BID 09/09/2017 11/04/2017 Inactive Bactrim DS 800 mg-160 mg tablet RxNorm: 881039 1 Tablet(s) PO BID 0 08/07/2017 08/13/2017 Inactive metronidazole 500 mg tablet RxNorm: 418647 1 Tablet(s) PO BID 08/0708/13/2017 Inactive diltiazem ER 360 mg capsule,24 hr,extended release RxNorm: 8 35039 1 Capsule(s) PO QHS replaces 300mg dose 08/04/2017 01/30/2018 Inactive fenofibrate micronized 134 mg capsule RxNorm: 227511 1 Capsule( s) PO QD 07/21/2017 01/30/2018 Inactive Zocor 40 mg tablet RxNorm: 548389 1 Tablet(s) PO QHS 07/21/201705/10 Inactive GB duloxetine 60 mg capsule,delayed release RxNorm: 828549 Capsule(s) TAKE ONE CAPSULE BY MOUTH ONCE DAILY 06/24/2017 09/24/2017 Inactive Cleocin HCl 300 mg capsule RxNorm: 894519 2 Capsule(s) PO BID 06/0206/08/2017 Inactive acyclovir 800 mg tablet RxNorm: 382049 1 Tablet(s) PO 5x day 201706/08/2017 Inactive diltiazem ER 300 mg capsule,24 hr,extended release RxNorm: 8 20281 1 Capsule(s) PO QHS replaces 240mg dose 05/05/2017 08/03/2017 Inactive ipratropium-albuterol 0.5 mg-3 mg(2.5 mg base)/3 mL ne bulization soln RxNorm: 2035976 1 Unit Dose INH Q4H as needed 05/05/2017 01/04/2019 Inactive metformin ER 1,000 mg tablet,extended release 24hr RxNorm: 1 871816 1 Tablet(s) PO BID 04/28/2017 11/17/2017 Inactive [SAVINGS FOR NON -COVERED DRUGS -- BIN:736825, PCN: ASPROD1, Group: XXXXX, ID# [id number], Questions: . THIS IS NOT INSURANCE.] diltiazem ER (XR/XT) 240 mg capsule,extended release 2 4 hr, controlled RxNorm: 112234 TAKE ONE CAPSULE BY MOUTH EVERY DAY 04/15/2017 05/04/2017 Inact avani prednisone 20 mg tablet RxNorm: 450443 1 Tablet(s) PO QD 04/10/2017 1 06/14/2016 Inactive Breo Ellipta 200 mcg-25 mcg/dose powder for inhalation RxNor m: 7311579 1 Puff(s) INH QD 04/10/2017 02/09/2018 Inactive Breo Ellipta 200 mcg-25 mcg/dose powder for inhalation RxNor m: 9720864 1 Puff(s) INH QD 04/10/2017 04/09/2017 Inactive Levaquin 500 mg tablet RxNorm: 175638 1 Tablet(s) PO QD 04/10/2017 Inactive metoprolol succinate ER 100 mg tablet,extended release 24 hr RxNorm: 540401 TAKE ONE TABLET BY MOUTH TWICE A DAY 03/24/2017 12/18/2017 Inactive fenofibrate micronized 134 mg capsule RxNorm: 286955 1 Capsule( s) PO QD 01/16/2017 07/21/2017 Inactive Benicar HCT 40 mg-25 mg tablet RxNorm: 838722 1 Tablet(s) PO QD 11/17/2017 Inactive [SAVINGS FOR NON-COVERED JESU GS -- BIN:476060, PCN: ASPROD1, Group: XXXXX, ID# XXXXXXX, Questions: . THIS IS NOT INSURANCE.] metoprolol succinate ER 100 mg tablet,extended release 24 hr RxNorm: 127447 1 Tablet(s) PO BID 10/16/2016 03/23/2017 Inactive diltiazem ER (XR/XT) 240 mg capsule,extended release 2 4 hr, controlled RxNorm: 429361 1 Capsule(s) PO QD 10/16/2016 04/13/2017 Inactive [SAVINGS FOR NON- COVERED DRUGS -- BIN:372802, PCN: ASPROD1, Group: XXXXX, ID# XXXXXXX, Questions: . THIS IS NOT INSURANCE.] metformin ER 1,000 mg tablet,extended release 24hr RxNorm: 8 21586 1 Tablet(s) PO BID 10/16/2016 04/28/2017 Inactive [SAVINGS FOR NON -COVERED DRUGS -- BIN:805052, PCN: ASPROD1, Group: XXXXX, ID# [id number], Questions: . THIS IS NOT INSURANCE.] Zocor 40 mg tablet RxNorm: 649067 1 Tablet(s) PO QHS 10/16/201607/21 Inactive GB Singulair 10 mg tablet RxNorm: 525250 Tablet(s) 1 TABLET(S) PO QHS 08/27/2016 09/02/2018 Inactive prednisone 20 mg tablet RxNorm: 856068 1 Tablet(s) PO QD 08/27/2016 0 08/31/2016 Inactive ipratropium-albuterol 0.5 mg-3 mg(2.5 mg base)/3 mL ne bulization soln RxNorm: 8639483 1 Unit Dose INH Q4H as needed 08/27/2016 05/04/2017 Inactive metoprolol succinate ER 100 mg tablet,extended release 24 hr RxNorm: 438343 TAKE ONE TABLET BY MOUTH TWICE A DAY 08/05/2016 10/16/2016 Inactive duloxetine 60 mg capsule,delayed release RxNorm: 103358 TAKE ONE CAPSULE BY MOUTH ONCE DAILY 08/05/2016 06/24/2017 Inactive prednisone 20 mg tablet RxNorm: 481917 1 Tablet(s) PO QD 06/14/2016 0 06/18/2016 Inactive ipratropium-albuterol 0.5 mg-3 mg(2.5 mg base)/3 mL ne bulization soln RxNorm: 2938656 1 Unit Dose INH Q4H as needed 06/13/2016 08/26/2016 Inactive Levaquin 500 mg tablet RxNorm: 637770 1 Tablet(s) PO QD 06/13/2016 Inactive metoprolol succinate ER 100 mg tablet,extended release 24 hr RxNorm: 675701 1 Tablet(s) PO BID replaces 50mg dose 05/14/2016 07/12/2016 Inactive metoprolol succinate ER 50 mg tablet,extended release 24 hr RxNorm: 617143 1 Tablet(s) PO BID 04/29/2016 05/13/2016 Inactive prednisone 20 mg tablet RxNorm: 632231 1 Tablet(s) PO BID 04/22/2016 04/21/2016 Inactive prednisone 20 mg tablet RxNorm: 381254 1 Tablet(s) PO BID 04/22/2016 04/28/2016 Inactive Singulair 10 mg tablet RxNorm: 761449 Tablet(s) 1 TABLET(S) PO QHS 04/01/2016 08/26/2016 Inactive metoprolol succinate ER 25 mg tablet,extended release 24 hr RxNorm: 702487 1 Tablet(s) PO QHS for blood pressure 04/01/2016 05/13/2016 Inactive fenofibrate micronized 134 mg capsule RxNorm: 509854 TA KE ONE CAPSULE BY MOUTH DAILY 01/25/2016 01/16/2017 Inactive duloxetine 60 mg capsule,delayed release RxNorm: 281977 TAKE ONE CAPSULE BY MOUTH ONCE DAILY 01/25/2016 08/04/2016 Inactive Zocor 40 mg tablet RxNorm: 891466 TAKE ONE TABLET BY MOUTH AT B EDTIME 11/13/2015 10/16/2016 Inactive GB metformin ER 1,000 mg tablet,extended release 24hr RxNorm: 8 83532 1 Tablet(s) PO BID 10/26/2015 10/16/2016 Inactive [SAVINGS FOR NON -COVERED DRUGS -- BIN:297800, PCN: ASPROD1, Group: XXXXX, ID# [id number], Questions: . THIS IS NOT INSURANCE.] Benicar HCT 40 mg-25 mg tablet RxNorm: 766665 1 Tablet(s) PO QD 06/201511/11/2016 Inactive [SAVINGS FOR NON-COVERED JESU GS -- BIN:544685, PCN: ASPROD1, Group: XXXXX, ID# XXXXXXX, Questions: . THIS IS NOT INSURANCE.] diltiazem ER (XR/XT) 240 mg capsule,extended release,control led RxNorm: 773512 1 Capsule(s) PO QD 10/26/2015 10/15/2016 Inactive [SAVINGS FOR NO N-COVERED DRUGS -- BIN:913926, PCN: ASPROD1, Group: XXXXX, ID# [id number], Questions: . THIS IS NOT INSURANCE.] Singulair 10 mg tablet RxNorm: 787326 1 TABLET(S) PO QHS 09/18/2015 1 05/31/2015 Inactive Viagra 100 mg tablet RxNorm: 727546 1 Tablet(s) PO as needed 201511/23/2018 Inactive Singulair 10 mg tablet RxNorm: 510556 1 Tablet(s) PO QHS 08/16/2015 0 08/15/2015 Inactive Singulair 10 mg tablet RxNorm: 070826 1 Tablet(s) PO QHS 08/16/2015 0 09/14/2015 Inactive duloxetine 60 mg capsule,delayed release RxNorm: 802159 1 Capsule(s) PO QD replaces fluoxetine 08/14/2015 01/24/2016 Inactive ipratropium-albuterol 0.5 mg-3 mg(2.5 mg base)/3 mL ne bulization soln RxNorm: 9280290 1 Unit Dose INH Q4H as needed 08/14/2015 06/12/2016 Inactive prednisone 20 mg tablet RxNorm: 882238 Take 3 tabs PO o nce daily x 3 days, then 2 tabs PO once daily x 3 days and then 1 tab PO once daily x 3 days 08/09/2015 08/13/2015 Inactive Symbicort 160 mcg-4.5 mcg/actuation HFA aerosol inhaler RxNo rm: 1609030 2 Puff(s) INH BID 08/09/2015 08/13/2015 Inactive Zocor 40 mg tablet RxNorm: 040873 1 Tablet(s) PO QHS 05/23/201511/11 Inactive [AttnRPh: Saving apply/adjudicate RxGRP: SG20 RxBIN:[id number] RxPCN:HT ID#:[id number]] Benicar HCT 40 mg-25 mg tablet RxNorm: 969557 1 Tablet(s) PO QD 10/26/2015 Inactive [SAVINGS FOR NON-COVERED JESU GS -- BIN:909970, PCN: ASPROD1, Group: XXXXX, ID# [id number], Questions: . THIS IS NOT INSURANCE.] diltiazem ER (XR/XT) 240 mg capsule,extended release,control led RxNorm: 219179 1 Capsule(s) PO QD 04/24/2015 10/20/2015 Inactive [SAVINGS FOR NO N-COVERED DRUGS -- BIN:827117, PCN: ASPROD1, Group: XXXXX, ID# [id number], Questions: . THIS IS NOT INSURANCE.] fluoxetine 40 mg capsule RxNorm: 802164 1 Capsule(s) PO QD 04/24/20 15 08/13/2015 Inactive [SAVINGS FOR NON-COVERED JESU GS -- BIN:679572, PCN: ASPROD1, Group: XXXXX, ID# [id number], Questions: . THIS IS NOT INSURANCE.] Zocor 40 mg tablet RxNorm: 618291 TABLET(S) 1 TABLET(S) PO QHS 01/2505/23/2015 Inactive [AttnRPh: Saving apply/adjud icate RxGRP:SG20 RxBIN:[id number] RxPCN: ID#:[id number]] metformin ER 1,000 mg tablet,extended release 24hr RxNorm: 8 55114 1 TABLET(S) PO BID 01/29/2015 10/26/2015 Inactive [SAVINGS FOR NON -COVERED DRUGS -- BIN:405950, PCN: ASPROD1, Group: XXXXX, ID# XXXXXXX, Questions: . THIS IS NOT INSURANCE.] fenofibrate micronized 134 mg capsule RxNorm: 664134 1 CAPSULE( S) PO QD 01/23/2015 01/17/2016 Inactive fenofibrate micronized 134 mg capsule RxNorm: 955056 1 Capsule( s) PO QD 11/07/2014 01/22/2015 Inactive diltiazem ER (XR/XT) 240 mg capsule,extended release,control led RxNorm: 706943 1 Capsule(s) PO QD 10/24/2014 04/24/2015 Inactive [SAVINGS FOR NO N-COVERED DRUGS -- BIN:163021, PCN: ASPROD1, Group: XXXXX, ID# XXXXXXX, Questions: . THIS IS NOT INSURANCE.] Benicar HCT 40 mg-25 mg tablet RxNorm: 659893 1 Tablet(s) PO QD 05/201404/24/2015 Inactive [SAVINGS FOR NON-COVERED JESU GS -- BIN:372224, PCN: ASPROD1, Group: XXXXX, ID# XXXXXXX, Questions: . THIS IS NOT INSURANCE.] fluoxetine 40 mg capsule RxNorm: 792524 1 Capsule(s) PO QD 10/25/19 15 04/24/2015 Inactive [SAVINGS FOR NON-COVERED JESU GS -- BIN:712834, PCN: ASPROD1, Group: XXXXX, ID# XXXXXXX, Questions: . THIS IS NOT INSURANCE.] azithromycin 500 mg tablet RxNorm: 554469 1 Tablet(s) PO QD 015 09/27/2014 Inactive [SAVINGS FOR NON-COVERED JESU GS -- BIN:920072, PCN: ASPROD1, Group: XXXXX, ID# XXXXXXX, Questions: . THIS IS NOT INSURANCE.] albuterol sulfate 2.5 mg/3 mL (0.083 %) solution for n ebulization RxNorm: 931170 3 Milliliter(s) INH ONE VIAL VIA NEBULIZER EVERY 4 HOURS 015 11/19/2014 Inactive [AttnRPh: Saving apply/adjudicate RxGRP: SG20 RxBIN:[id number] RxPCN: ID#:[id number]] Zocor 40 mg tablet RxNorm: 789797 TABLET(S) 1 TABLET(S ) PO QHS 1 TABLET(S) PO QHS 09/04/2014 02/21/2015 Inactive [AttnRPh: Saving apply/adjudicate RxGRP:SG20 RxBIN:[id number] RxPCN: ID#:[id number]] metformin ER 1,000 mg tablet,extended release 24hr RxNorm: 8 57831 1 Tablet(s) PO BID 08/04/2014 01/28/2015 Inactive [SAVINGS FOR NON -COVERED DRUGS -- BIN:492719, PCN: ASPROD1, Group: XXXXX, ID# XXXXXXX, Questions: . THIS IS NOT INSURANCE.] Bromfed DM 2 mg-30 mg-10 mg/5 mL syrup RxNorm: 5169745 1 -2 Teaspoon(s) PO Q4H as needed for cough 06/10/2014 06/19/2014 Inactive [SAVINGS FOR UN INSURED PATIENTS -- BIN:185042, PCN: ASPROD1, Group: AME08, ID# [id number], Process claim through [employer], for questions: . THIS IS NOT INSURANCE.] Augmentin 875 mg-125 mg tablet RxNorm: 449790 1 Tablet(s) PO Q12H 0 06/10/2014 06/19/2014 Inactive [AttnRPh: Saving apply/adjud icate RxGRP:SG20 RxBIN:[id number] RxPCN:HT ID#:[id number]] Zocor 40 mg tablet RxNorm: 828204 Tablet(s) 1 TABLET(S ) PO QHS 1 TABLET(S) PO QHS 05/25/2014 08/22/2014 Inactive [AttnRPh: Saving apply/adjudicate RxGRP:SG20 RxBIN:[id number] RxPCN:HT ID#:[id number]] fluoxetine 40 mg capsule RxNorm: 723951 1 Capsule(s) PO QD 04/29/20 14 10/24/2014 Inactive [AttnRPh: Saving apply/adjud icate RxGRP:SG20 RxBIN:[id number] RxPCN:HT ID#:[id number]] diltiazem ER (XR/XT) 240 mg capsule,extended release,control led RxNorm: 988008 1 Capsule(s) PO QD 04/29/2014 10/24/2014 Inactive [AttnRPh: Shahzad g apply/adjudicate RxGRP:SG20 RxBIN:[id number] RxPCN:HT ID#:[id number]] Benicar HCT 40 mg-25 mg tablet RxNorm: 421574 1 Tablet(s) PO QD 09/201310/24/2014 Inactive [AttnRPh: Saving apply/adjud icate RxGRP:SG20 RxBIN:[id number] RxPCN:HT ID#:[id number]] Zocor 40 mg tablet RxNorm: 703943 1 TABLET(S) PO QHS 1 TABLET(S ) PO QHS 03/07/2014 05/25/2014 Inactive [AttnRPh: Saving chelsie ly/adjudicate RxGRP:SG20 RxBIN:[id number] RxPCN:HT ID#:[id number]] Zocor 40 mg tablet RxNorm: 750724 1 Tablet(s) PO QHS 1 TABLET(S ) PO QHS 12/06/2013 03/05/2014 Inactive [AttnRPh: Saving chelsie ly/adjudicate RxGRP:SG20 RxBIN:[id number] RxPCN:HT ID#:[id number]] diltiazem ER (XR/XT) 240 mg capsule,extended release,control led RxNorm: 446195 1 Capsule(s) PO QD 10/25/2013 04/22/2014 Inactive [AttnRPh: Savin g apply/adjudicate RxGRP:SG20 RxBIN:[id number] RxPCN:HT ID#:[id number]] fluoxetine 40 mg capsule RxNorm: 394746 1 Capsule(s) PO QD 10/26/19 14 04/22/2014 Inactive [AttnRPh: Saving apply/adjud icate RxGRP:SG20 RxBIN:[id number] RxPCN:HT ID#:[id number]] Zocor 40 mg tablet RxNorm: 718246 1 Tablet(s) PO QHS 1 TABLET(S ) PO QHS 09/13/2013 12/06/2013 Inactive metformin ER 1,000 mg tablet,extended release 24hr RxNorm: 8 92986 Tablet(s) PO TAKE 1 TABLET BY MOUTH TWICE DAILY (REPLACES 500MG DOSE) 07/26/201303/2015 Inactive diltiazem ER (XR/XT) 240 mg capsule,extended release,control led RxNorm: 391054 1 Capsule(s) PO QD 05/03/2013 10/25/2013 Inactive fluoxetine 40 mg capsule RxNorm: 138642 1 Capsule(s) PO QD 05/03/20 13 10/25/2013 Inactive Benicar HCT 40 mg-25 mg tablet RxNorm: 597705 1 Tablet(s) PO QD 01/201304/29/2014 Inactive Zocor 40 mg tablet RxNorm: 603489 1 Tablet(s) PO QHS 12/10/201209/13 Inactive fluoxetine 40 mg capsule RxNorm: 837915 1 Capsule(s) PO QD 11/10/19 13 05/03/2013 Inactive diltiazem ER (XR/XT) 240 mg capsule,extended release,control led RxNorm: 759653 1 Capsule(s) PO QD 11/09/2012 05/03/2013 Inactive Benicar HCT 40 mg-25 mg tablet RxNorm: 780133 1 Tablet(s) PO QD 05/03/2013 Inactive metformin ER 1,000 mg tablet,extended release 24hr RxNorm: 8 14630 Tablet(s) PO TAKE 1 TABLET BY MOUTH TWICE DAILY (REPLACES 500MG DOSE) 08/05/201206/2013 Inactive Zocor 40 mg tablet RxNorm: 328707 1 Tablet(s) PO QHS 06/15/201212/09 Inactive fluoxetine 40 mg capsule RxNorm: 572232 1 Capsule(s) PO QD 05/15/2011/08/2012 Inactive Neurontin 600 mg Tab RxNorm: 710576 1 Tablet(s) PO QHS 12/03/2011 Inactive metformin ER 1,000 mg tablet,extended release 24hr RxNorm: 8 22029 1 Tablet(s) PO BID replaces 500mg dose 12/03/2011 07/26/2013 Inactive Zocor 40 mg tablet RxNorm: 446975 1 Tablet(s) PO QHS 12/03/201106/15 Inactive fluoxetine 20 mg capsule RxNorm: 597548 1 Capsule(s) PO QD 12/03/19 12 05/24/2012 Inactive diltiazem ER (XR/XT) 240 mg capsule,extended release,control led RxNorm: 040700 1 Capsule(s) PO QD 11/15/2011 11/09/2012 Inactive Benicar HCT 40 mg-25 mg tablet RxNorm: 711072 1 Tablet(s) PO QD 02/16/2012 Inactive metformin ER 500 mg 24 hr Tab RxNorm: 193632 1 Tablet(s) PO BID 12/02/2011 Inactive Zocor 40 mg Tab RxNorm: 716605 1 Tablet(s) PO QHS 05/30/2011 11/25/19 12 Inactive fluoxetine 20 mg Cap RxNorm: 554148 1 Capsule(s) PO QD 05/28/2011 Inactive Neurontin 600 mg Tab RxNorm: 992793 1 Tablet(s) PO QHS 05/28/2011 Inactive Neurontin 600 mg Tab RxNorm: 796385 1 Tablet(s) PO QHS 02/22/201106/2011 Inactive Neurontin 600 mg Tab RxNorm: 059944 1 Tablet(s) PO QHS 01/14/2011 Inactive Neurontin 300 mg Cap RxNorm: 928995 1 Capsule(s) PO QHS 01/14/2011 Inactive Neurontin 600 mg Tab RxNorm: 141549 1 Tablet(s) PO QHS 01/14/2011 Inactive Medrol (Vipul) 4 mg Tabs in a Dose Pack RxNorm: 666665 Tablet(s) PO 0 01/02/2011 08/28/2011 Inactive as directed fluoxetine 20 mg Cap RxNorm: 624075 1 Capsule(s) PO QD 12/10/201006/2011 Inactive Zocor 40 mg Tab RxNorm: 169933 1 Tablet(s) PO QHS 12/03/2010 05/29/19 12 Inactive Neurontin 300 mg Cap RxNorm: 583149 1 Capsule(s) PO QHS 12/03/2010 Inactive Septra DS 800 mg-160 mg Tab RxNorm: 192408 1 Tablet(s) PO BID 11/2912/08/2010 Inactive diltiazem ER (XR/XT) 240 mg Continuous Release Cap RxNorm: 8 66968 1 Capsule(s) PO QD 11/20/2010 11/15/2011 Inactive Neurontin 300 mg Cap RxNorm: 642342 1 Capsule(s) PO QHS 11/06/2010 Inactive Neurontin 300 mg Cap RxNorm: 646778 1 Capsule(s) PO QHS 11/06/2010 Inactive Celebrex 200 mg Cap RxNorm: 493702 1 Capsule(s) PO BID 10/24/2010 Inactive fluoxetine 20 mg Cap RxNorm: 279063 1 Capsule(s) PO QD 06/07/201003/2011 Inactive Zocor 40 mg Tab RxNorm: 804319 1 Tablet(s) PO QHS 06/05/2010 12/02/19 11 Inactive Benicar HCT 40 mg-25 mg Tab RxNorm: 785046 1 Tablet(s) PO QD 200908/21/2011 Inactive Diltiazem 240 mg Continuous Release Cap RxNorm: 384136 1 Capsul e(s) PO QD 11/09/2009 09/02/2018 Inactive Avelox 400 mg Tab RxNorm: 049977 1 Tablet(s) PO QD 08/22/2009 010 Inactive ProAir HFA 90 mcg/actuation aerosol inhaler RxNorm: 633228 2 Puff(s) INH Q4H as needed No Start Date Active tramadol 50 mg tablet RxNorm: 591236 1-2 Tablet(s) PO TID as ne eded for pain No Start Date Active Tylenol Arthritis 650 mg Tab RxNorm: 9219515 2 Tablet(s) PO QD No Sta rt Date Active Celebrex 200 mg Cap RxNorm: 108201 1 Capsule(s) PO BID No Start Date 08/08/2015 Inactive Medrol (Vipul) 4 mg Tabs in a Dose Pack RxNorm: 858801 Tablet(s) PO N o Start Date 01/01/2011 Inactive as directed Promethazine-DM 6.25 mg-15 mg/5 mL Syrup RxNorm: 251139 1-2 Teaspoon(s) PO Q4H prn cough No Start Date 08/28/2011 Inactive Claritin 10 mg tablet RxNorm: 104257 1 Tablet(s) PO QD No Start Date 08/08/2015 Inactive [id number] Oral RxNorm: Oral No Start Da te 03/28/2019 Inactive Breo Ellipta 200 mcg-25 mcg/dose powder for inhalation RxNor m: 7774717 1 Puff(s) INH QD No Start Date 04/09/2017 Inactive metformin 500 mg Tab RxNorm: 347571 1 Tablet(s) PO QD No Start Date 0 08/17/2011 Inactive Diltiazem 240 mg Continuous Release Cap RxNorm: 629488 1 Capsul e(s) PO BID No Start Date 11/08/2009 Inactive fluoxetine 20 mg Cap RxNorm: 522014 1 Capsule(s) PO QD No Start Date 06/07/2010 Inactive Multivitamin & Mineral Formula Oral RxNorm: Oral No Start Da te 03/28/2019 Inactive Medrol (Vipul) 4 mg tablets in a dose pack RxNorm: 736044 Tablet(s) PO as directed No Start Date 05/28/2012 Inactive Fish Oil 1,000 mg Cap RxNorm: 1 Capsule(s) PO QD No Start Date 07/2018 Inactive Nexium 40 mg Cap RxNorm: 446282 1 Capsule(s) PO QD No Start Date 07/24 Inactive fluticasone 50 mcg/actuation nasal spray,suspension RxNorm: 7327955 2 [place] NASAL QD to each nostril No Start Date 08/03/2017 Inactive Viagra 100 mg tablet RxNorm: 389569 1 Tablet(s) PO as needed No Sta rt Date 09/17/2015 Inactive prednisone 20 mg tablet RxNorm: 614096 1 Tablet(s) PO B ID for 4 days then 1 po daily for 4 days No Start Date 11/23/2018 Inactive Benicar HCT 40 mg-25 mg Tab RxNorm: 537559 1 Tablet(s) PO QD No Sta rt [...] Date S ervice Location MICROALBUMIN URINE RANDOM 53602 MICRL MG/L 5.8 MG/L 03/2011 Unknown MICROALBUMIN URINE RANDOM 04025 XM.ALB/CRE 5.2 MG/GCR Unknown MICROALBUMIN URINE RANDOM 95398 CREAT MG/D 111 MG/DL 03/2011 Unknown MICROALBUMIN URINE RANDOM 78962 CRE/100 1.11 G/L 12/24 Unknown Procedures Procedure Codes Date FLU VACC PRSV FREE INC ANTIG 65 AND OLDER CPT-4: 11104 03/04/2019 ADMIN PNEUMOCOCCAL VACCINE CPT-4: G0009 03/04/2019 ADMIN INFLUENZA VIRUS VAC CPT-4: G0008 03/04/2019 FLU VACC PRSV FREE INC ANTIG 65 AND OLDER CPT-4: 36187 03/04/2019 PNEUMOCOCCAL VACC 23 [facility] IM CPT-4: 99454 03/04/2019 THER/PROPH/DIAG INJ SC/IM CPT-4: 36394 08/11/2018 TRIAMCINOLONE ACET INJ NOS CPT-4: J3301 08/11/2018 DEXAMETHASONE SODIUM PHOS CPT-4: J1100 08/11/2018 THER/PROPH/DIAG INJ SC/IM CPT-4: 96170 07/16/2018 METHYLPREDNISOLONE INJECTION CPT-4: J2930 07/16/2018 INFLUENZA ASSAY W/OPTIC CPT-4: 36496 07/16/2018 THER/PROPH/DIAG INJ SC/IM CPT-4: 44796 07/13/2018 TRIAMCINOLONE ACET INJ NOS CPT-4: J3301 07/13/2018 THER/PROPH/DIAG INJ SC/IM CPT-4: 48347 05/04/2018 METHYLPREDNISOLONE INJECTION CPT-4: J2930 05/04/2018 FLU VACC PRSV FREE INC ANTIG 65 AND OLDER CPT-4: 43028 02/10/2018 PNEUMOCOCCAL VACC 13 [facility] IM CPT-4: 98343 02/10/2018 ADMIN INFLUENZA VIRUS VAC CPT-4: G0008 02/10/2018 ADMIN PNEUMOCOCCAL VACCINE CPT-4: G0009 02/10/2018 THER/PROPH/DIAG INJ SC/IM CPT-4: 23746 09/09/2017 TRIAMCINOLONE ACET INJ NOS CPT-4: J3301 09/09/2017 ALBUTEROL NON-COMP UNIT CPT-4: J7613 04/10/2017 AIRWAY INHALATION TREATMENT CPT-4: 44453 04/10/2017 PRESCRIP TRANSMIT VIA ERX SY CPT-4: G8553 04/10/2017 FLU VACC PRSV FREE INC ANTIG 65 AND OLDER CPT-4: 96277 03/28/2017 ADMIN INFLUENZA VIRUS VAC CPT-4: G0008 03/28/2017 PRESCRIP TRANSMIT VIA ERX SY CPT-4: G8553 08/27/2016 PRESCRIP TRANSMIT VIA ERX SY CPT-4: G8553 06/14/2016 ALBUTEROL NON-COMP UNIT CPT-4: J7613 06/13/2016 AIRWAY INHALATION TREATMENT CPT-4: 41732 06/13/2016 PRESCRIP TRANSMIT VIA ERX SY CPT-4: [...] CPT-4: G8553 11/07/2014 THER/PROPH/DIAG INJ SC/IM CPT-4: 42661 09/21/2014 METHYLPREDNISOLONE INJECTION CPT-4: J2930 09/21/2014 PRESCRIP TRANSMIT VIA ERX SY CPT-4: G8553 09/21/2014 PRESCRIP TRANSMIT VIA ERX SY CPT-4: G8553 06/10/2014 URINALYSIS NONAUTO W/O SCOPE CPT-4: 47533 06/01/2012 PRESCRIP TRANSMIT VIA ERX SY CPT-4: G8553 05/25/2012 PRESCRIP TRANSMIT VIA ERX SY CPT-4: G8553 12/03/2011 CUR TOBACCO NON-USER CPT-4: G8457 05/30/2011 PRESCRIP TRANSMIT VIA ERX SY CPT-4: G8553 05/30/2011 URINALYSIS NONAUTO W/O SCOPE CPT-4: 35581 01/01/2011 URINE CULTURE/ COLONY COUNT CPT-4: 32570 01/01/2011 CUR TOBACCO NON-USER CPT-4: G8457 01/01/2011 [...] 1: 114/68 Code: 8480-6 BMI: 43.5 Code: 26779-0 Heart Rate 1: 52 bpm Height: 6'1" [...] 1: 136/72 Code: 8480-6 BMI: 42.7 Code: 01201-7 Heart Rate 1: 60 bpm Height: 6'1" Respiratory Rate: 22 bpm SpO2: 95% Tempera ture: 37.1 (C) / 98.7 (F) Weight: 324 lbs 02/10/2018 Blood Pressure 1: 146/78 Code: 8480-6 BMI: 42.4 Code: 15204-2 Heart Rate 1: 64 bpm Height: 6'1" Respiratory Rate: 22 bpm SpO2: 95% Tempera ture: 36.5 (C) / 97.7 (F) Weight: 321 lbs 11/05/2017 Blood Pressure 1: 128/84 Code: 8480-6 BMI: 42.9 Code: 63850-4 Heart Rate 1: 52 bpm Height: 6'1" Respiratory Rate: 22 bpm SpO2: 95% Tempera ture: 36.3 (C) / 97.3 (F) Weight: 325 lbs 09/09/2017 Blood Pressure 1: 162/90 Code: 8480-6 BMI: 42.5 Code: 75061-0 Heart Rate 1: 60 bpm Height: 6'1" Respiratory Rate: 24 bpm SpO2: 95% Tempera ture: 36.4 (C) / 97.6 (F) Weight: 322 lbs 08/07/2017 Blood Pressure 1: 152/90 Code: 8480-6 BMI: 42.2 Code: 77075-2 Heart Rate 1: 60 bpm Height: 6'1" Respiratory Rate: 26 bpm SpO2: 94% Tempera ture: 36.6 (C) / 97.8 (F) Weight: 320 lbs 08/04/2017 Blood Pressure 1: 150/86 Code: 8480-6 BMI: 42.7 Code: 43748-4 Heart Rate 1: 64 bpm Height: 6'1" Respiratory Rate: 20 bpm SpO2: 94% Tempera ture: 36.3 (C) / 97.3 (F) Weight: 324 lbs 06/04/2017 Blood Pressure 1: 164/90 Code: 8480-6 Heart Rate 1: 60 bpm Respiratory Rate: 24 bpm SpO2: 94% Temperature: 36.8 (C) / 98.3 (F) 06/02/2017 Blood Pressure 1: 162/80 Code: 8480-6 BMI: 42.9 Code: 27010-0 Heart Rate 1: 66 bpm Height: 6'1" Respiratory Rate: 22 bpm SpO2: 98% Tempera ture: 36.6 (C) / 97.8 (F) Weight: 325 lbs 05/05/2017 Blood Pressure 1: 164/94 Code: 8480-6 BMI: 41.4 Code: 20610-8 Heart Rate 1: 64 bpm Height: 6'1" Respiratory Rate: 22 bpm SpO2: 95% Tempera ture: 36.4 (C) / 97.5 (F) Weight: 314 lbs 04/10/2017 Blood Pressure 1: 136/78 Code: 8480-6 BMI: 42.0 Code: 37419-1 Heart Rate 1: 76 bpm Height: 6'1" Respiratory Rate: 24 bpm SpO2: 92% Tempera ture: 35.9 (C) / 96.7 (F) Weight: 318 lbs 02/03/2017 Blood Pressure 1: 134/82 Code: 8480-6 BMI: 41.7 Code: 39735-6 Heart Rate 1: 72 bpm Height: 6'1" Respiratory Rate: 24 bpm SpO2: 95% Tempera ture: 36.1 (C) / 97.0 (F) Weight: 316 lbs 10/30/2016 Blood Pressure 1: 126/74 Code: 8480-6 BMI: 41.3 Code: 15590-3 Heart Rate 1: 68 bpm Height: 6'1" Respiratory Rate: 20 bpm Temperature: 37 .1 (C) / 98.8 (F) Weight: 313 lbs 08/30/2016 Blood Pressure 1: 146/80 Code: 8480-6 BMI: 41.7 Code: 63250-1 Heart Rate 1: 64 bpm Height: 6'1" Respiratory Rate: 24 bpm SpO2: 94% Tempera ture: 36.6 (C) / 97.8 (F) Weight: 316 lbs 08/27/2016 Blood Pressure 1: 124/78 Code: 8480-6 Heart Rate 1: 66 bpm Height: 6'2" Respiratory Rate: 18 bpm SpO2: 94% Temperature: 36.6 (C) / 97.8 (F) Weight: 07/02/2016 Blood Pressure 1: 126/78 Code: 8480-6 BMI: 41.4 Code: 38143-3 Heart Rate 1: 68 bpm Height: 6'1" Respiratory Rate: 24 bpm SpO2: 94% Tempera ture: 36.6 (C) / 97.8 (F) Weight: 314 lbs 06/14/2016 Blood Pressure 1: 146/82 Code: 8480-6 Heart Rate 1: 80 bpm Respiratory Rate: 20 bpm SpO2: 95% Temperature: 37.3 (C) / 99.2 (F) 06/13/2016 Blood Pressure 1: 146/84 Code: 8480-6 BMI: 40.5 Code: 55808-9 Heart Rate 1: 66 bpm Height: 6'1" Respiratory Rate: 28 bpm SpO2: 93% Tempera ture: 35.8 (C) / 96.4 (F) Weight: 307 lbs 05/14/2016 Blood Pressure 1: 146/90 Code: 8480-6 BMI: 41.2 Code: 72378-0 Heart Rate 1: 68 bpm Height: 6'1" Respiratory Rate: 26 bpm Temperature: 36 .8 (C) / 98.2 (F) Weight: 312 lbs 04/29/2016 Blood Pressure 1: 152/90 Code: 8480-6 BMI: 41.0 Code: 90574-6 Heart Rate 1: 68 bpm Height: 6'1" Respiratory Rate: 26 bpm SpO2: 94% Tempera ture: 36.1 (C) / 96.9 (F) Weight: 311 lbs 04/22/2016 Blood Pressure 1: 152/94 Code: 8480-6 BMI: 40.9 Code: 66941-3 Heart Rate 1: 68 bpm Height: 6'1" Respiratory Rate: 24 bpm SpO2: 94% Tempera ture: 36.2 (C) / 97.2 (F) Weight: 310 lbs 04/01/2016 Blood Pressure 1: 156/78 Code: 8480-6 BMI: 40.6 Code: 04719-8 Heart Rate 1: 84 bpm Height: 6'1" Respiratory Rate: 22 bpm SpO2: 95% Tempera ture: 37.1 (C) / 98.7 (F) Weight: 308 lbs 11/30/2015 Blood Pressure 1: 142/80 Code: 8480-6 BMI: 40.5 Code: 48438-3 Heart Rate 1: 88 bpm Height: 6'1" Respiratory Rate: 22 bpm Temperature: 36 .2 (C) / 97.2 (F) Weight: 307 lbs 08/29/2015 Blood Pressure 1: 132/70 Code: 8480-6 BMI: 40.0 Code: 73294-1 Heart Rate 1: 76 bpm Height: 6'1" Respiratory Rate: 24 bpm SpO2: 96% Tempera ture: 36.7 (C) / 98.0 (F) Weight: 303 lbs 08/14/2015 Blood Pressure 1: 126/80 Code: 8480-6 BMI: 39.4 Code: 71101-0 Heart Rate 1: 92 bpm Height: 6'1" Respiratory Rate: 24 bpm SpO2: 94% Tempera ture: 37.8 (C) / 100.0 (F) Weight: 299 lbs 08/09/2015 Blood Pressure 1: 146/82 Code: 8480-6 Heart Rate 1: 82 bpm Respiratory Rate: 22 bpm SpO2: 93% Temperature: 35.9 (C) / 96.6 (F) We ight: 310 lbs 05/22/2015 Blood Pressure 1: 156/76 Code: 8480-6 BMI: 41.0 Code: 24115-1 Heart Rate 1: 100 bpm Height: 6'1" Respiratory Rate: 22 bpm Temperature: 37 .2 (C) / 98.9 (F) Weight: 311 lbs 02/13/2015 Blood Pressure 1: 166/90 Code: 8480-6 BMI: 41.2 Code: 72317-0 Heart Rate 1: 72 bpm Height: 6'1" Respiratory Rate: 24 bpm SpO2: 93% Tempera ture: 36.9 (C) / 98.5 (F) Weight: 312 lbs 11/07/2014 Blood Pressure 1: 134/70 Code: 8480-6 BMI: 40.5 Code: 75400-7 Heart Rate 1: 76 bpm Height: 6'1" Respiratory Rate: 24 bpm Temperature: 36 .9 (C) / 98.4 (F) Weight: 307 lbs 10/04/2014 Blood Pressure 1: 144/86 Code: 8480-6 BMI: 40.1 Code: 02315-8 Heart Rate 1: 76 bpm Height: 6'1" Respiratory Rate: 28 bpm Temperature: 36 .6 (C) / 97.9 (F) Weight: 304 lbs 09/22/2014 Blood Pressure 1: 142/80 Code: 8480-6 BMI: 40.0 Code: 43592-5 Heart Rate 1: 80 bpm Height: 6'1" Respiratory Rate: 22 bpm SpO2: 96% Tempera ture: 36.6 (C) / 97.8 (F) Weight: 303 lbs 09/21/2014 Blood Pressure 1: 160/66 Code: 8480-6 BMI: 40.0 Code: 07476-6 Heart Rate 1: 90 bpm Height: 6'1" Respiratory Rate: 26 bpm SpO2: 94% Tempera ture: 35.7 (C) / 96.2 (F) Weight: 303 lbs 06/28/2014 Blood Pressure 1: 132/80 Code: 8480-6 BMI: 41.0 Code: 92467-7 Heart Rate 1: 64 bpm Height: 6' Respiratory Rate: 20 bpm Temperature: 36 .7 (C) / 98.0 (F) Weight: 302 lbs 06/10/2014 Blood Pressure 1: 152/70 Code: 8480-6 BMI: 41.1 Code: 36708-1 Heart Rate 1: 76 bpm Height: 6' Respiratory Rate: 20 bpm Temperature: 36 .6 (C) / 97.8 (F) Weight: 303 lbs 03/29/2014 Blood Pressure 1: 132/78 Code: 8480-6 BMI: 40.6 Code: 62491-2 Heart Rate 1: 84 bpm Height: 6' Respiratory Rate: 22 bpm Temperature: 37 .1 (C) / 98.8 (F) Weight: 299 lbs 11/30/2013 Blood Pressure 1: 136/84 Code: 8480-6 BMI: 39.2 Code: 82101-8 Heart Rate 1: 76 bpm Height: 6' Respiratory Rate: 20 bpm Temperature: 36 .8 (C) / 98.2 (F) Weight: 289 lbs 08/03/2013 Blood Pressure 1: 144/80 Code: 8480-6 Heart Rate 1: 86 bpm Respiratory Rate: 20 bpm Temperature: 36.6 (C) / 97.8 (F) Weight: 296 lbs 04/06/2013 Blood Pressure 1: 142/90 Code: 8480-6 BMI: 40.3 Code: 02333-9 Heart Rate 1: 88 bpm Height: 6' Respiratory Rate: 20 bpm Temperature: 36 .6 (C) / 97.8 (F) Weight: 297 lbs 12/01/2012 Blood Pressure 1: 124/78 Code: 8480-6 BMI: 38.7 Code: 50316-3 Heart Rate 1: 76 bpm Height: 6' Respiratory Rate: 20 bpm Temperature: 37 .2 (C) / 98.9 (F) Weight: 285 lbs 08/04/2012 Blood Pressure 1: 128/80 Code: 8480-6 BMI: 38.2 Code: 26481-4 Heart Rate 1: 76 bpm Height: 6' Respiratory Rate: 20 bpm Temperature: 37 .0 (C) / 98.6 (F) Weight: 282 lbs 05/29/2012 Blood Pressure 1: 138/78 Code: 8480-6 BMI: 36.6 Code: 80145-8 Heart Rate 1: 66 bpm Height: 6' Temperature: 36.7 (C) / 98.1 (F) Weight: 270 lbs 05/25/2012 Blood Pressure 1: 128/72 Code: 8480-6 BMI: 39.9 Code: 68895-1 Heart Rate 1: 74 bpm Height: 6' Temperature: 36.1 (C) / 97.0 (F) Weight: 294 lbs 04/07/2012 Blood Pressure 1: 124/76 Code: 8480-6 BMI: 39.9 Code: 72903-5 Heart Rate 1: 72 bpm Height: 6' Respiratory Rate: 20 bpm Temperature: 36 .9 (C) / 98.5 (F) Weight: 294 lbs 12/16/2011 Blood Pressure 1: 128/80 Code: 8480-6 BMI: 40.8 Code: 85374-0 Heart Rate 1: 74 bpm Height: 6' Temperature: 36.6 (C) / 97.8 (F) Weight: 301 lbs 12/03/2011 Blood Pressure 1: 132/76 Code: 8480-6 BMI: 40.8 Code: 08788-9 Heart Rate 1: 68 bpm Height: 6' Respiratory Rate: 20 bpm Temperature: 36 .8 (C) / 98.2 (F) Weight: 301 lbs 08/29/2011 Blood Pressure 1: 140/68 Code: 8480-6 BMI: 40.8 Code: 12870-6 Heart Rate 1: 80 bpm Height: 6' Respiratory Rate: 20 bpm Temperature: 36 .4 (C) / 97.6 (F) Weight: 301 lbs 05/30/2011 Blood Pressure 1: 134/82 Code: 8480-6 BMI: 41.5 Code: 64577-7 Heart Rate 1: 76 bpm Height: 6' [...] 1: 126/72 Code: 8480-6 BMI: 41.2 Code: 08231-3 Heart Rate 1: 76 bpm Height: 6' [...] 1: 152/90 Code: 8480-6 BMI: 37.7 Code: 81710-0 Heart Rate 1: 92 bpm Height: 6'1" [...] dm Encounters Encounter Performer Location Codes Date ([id number]) OFFICE/OUTPATIENT VISIT EST Diagnosis: Sore on toe[ICD10: L98.9] Neela FRENCH [place] CPT-4: 43662 07/06/2019 ([id number]) OFFICE/OUTPATIENT VISIT EST Diagnosis: Advanced chronic obstructive pulmonary disease[ICD10: J44.9] 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] Neela QURESHI [employer] [facility] [place] CPT-4: 96548 05/10/2019 ([id number]) OFFICE/OUTPATIENT VISIT EST Diagnosis: Chronic obstructive pulmonary disease with (acute) exacerbation[ICD10: J44.1] Diagnosis: Hypokalemia[ICD10: E87.6] 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] Neela QURESHI [employer] [place] CPT-[facility]: 88585 03/29/2019 ([id number]) NURSE/OUTPATIENT VISIT EST Diagnosis: PNEUMOCOCCAL VACCINE[ICD10: Z23] [facility] [place] [employer] [facility] CPT-4: 43831 03/04/2019 ([id number]) OFFICE/OUTPATIENT VISIT EST Diagnosis: Chronic obstructive pulmonary disease with (acute) exacerbation[ICD10: J44.1] Diagnosis: Other nonspecific abnormal finding of lung field[ICD10: R91.8] Neela ZHANG [place] CPT-4: 95484 01/05/2019 ([id number]) OFFICE/OUTPATIENT VISIT EST Diagnosis: Solitary pulmonary nodule[ICD10: R91.1] 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] Diagnosis: Tinea corporis[ICD10: B35.4] Neela HYMAN [place] [employer] [facility] CPT-4: 45923 12/09/2018 ([id number]) OFFICE/OUTPATIENT VISIT EST Diagnosis: COUGH[ICD10: R05] Diagnosis: Chronic obstructive pulmonary disease, unspecified[ICD10: J44.9] Diagnosis: Other disorders of lung[ICD10: J98.4] Diagnosis: Other nonspecific abnormal finding of lung field[ICD10: R91.8] Neela HYMAN [place] [employer] [facility] CPT-4: 93467 11/24/2018 ([id number]) OFFICE/OUTPATIENT VISIT EST Diagnosis: Pneumonia, unspecified organism[ICD10: J18.9] Amita HYMAN [place] [employer] [facility] CPT-4: 72320 09/16/2018 ([id number]) OFFICE/OUTPATIENT VISIT EST Diagnosis: Pneumonia, unspecified organism[ICD10: J18.9] Neela HYMAN [place] [employer] [facility] CPT-4: 97063 09/03/2018 ([id number]) OFFICE/OUTPATIENT VISIT EST Diagnosis: Personal history of pneumonia (recurrent)[ICD10: Z87.01] Diagnosis: Cough[ICD10: R05] Diagnosis: Essential (primary) hypertension[ICD10: I10] Diagnosis: Type 2 diabetes mellitus with hyperglycemia[ICD10: E11.65] Amita ZHANGCornice [facility] CPT-4: 65282 08/27/2018 OFFICE/OUTPATIENT VISIT EST Diagnosis: Pneumonia, unspecified organism[ICD10: J18.9] Diagnosis: Chronic obstructive pulmonary disease with (acute) exacerbation[ICD10: J44.1] Diagnosis: Other specified symptoms and signs involving the circulatory and respiratory systems[ICD10: R09.89] Diagnosis: Essential (primary) hypertension[ICD10: I10] Amita HYMAN [place] [employer] [facility] CPT-4: 19586 08/13/2018 OFFICE/OUTPATIENT VISIT EST Diagnosis: Pneumonia, unspecified organism[ICD10: J18.9] Diagnosis: Other specified symptoms and signs involving the circulatory and respiratory systems[ICD10: R09.89] Amita Santiago HYMAN [place] [employer] [facility] CPT-4: 62820 08/11/2018 ([id number]) OFFICE/OUTPATIENT VISIT EST Diagnosis: Dyspnea, unspecified[ICD10: R06.00] Diagnosis: Chronic obstructive pulmonary disease with (acute) exacerbation[ICD10: J44.1] Diagnosis: Pneumonia, unspecified organism[ICD10: J18.9] Amita HYMAN [place] [employer] [facility] CPT-4: 10880 07/16/2018 ([id number]) OFFICE/OUTPATIENT VISIT EST Diagnosis: Acute bronchitis due to other specified organisms[ICD10: J20.8] Diagnosis: Cough[ICD10: R05] Amita HYMAN [place] [employer] [facility] T-4: 24870 07/13/2018 ([id number]) OFFICE/OUTPATIENT VISIT EST Diagnosis: Essential (primary) hypertension[ICD10: I10] Diagnosis: Chronic obstructive pulmonary disease, unspecified[ICD10: J44.9] Diagnosis: Type 2 diabetes mellitus with hyperglycemia[ICD10: E11.65] Diagnosis: Mixed hyperlipidemia[ICD10: E78.2] Neela MIRZARYAN STERLING Octavio ZHANG [place] [employer] [facility] CPT-4: 90325 06/03/2018 ([id number]) OFFICE/OUTPATIENT VISIT EST Diagnosis: Chronic obstructive pulmonary disease, unspecified[ICD10: J44.9] Gely ZHANG [place] [employer] [facility] CPT-4: 07378 05/04/2018 ([id number]) OFFICE/OUTPATIENT VISIT EST Diagnosis: Essential (primary) hypertension[ICD10: I10] Diagnosis: Localized edema[ICD10: R60.0] Neela MIRZALINE Octavio HYMAN [place] [employer] [facility] CPT-4: 48684 03/03/2018 ([id number]) OFFICE/OUTPATIENT VISIT EST Diagnosis: Localized edema[ICD10: R60.0] Neela MIRZALINE Octavio HYMAN [place] [employer] [facility] CPT-4: 25268 02/17/2018 ([id number]) OFFICE/OUTPATIENT VISIT EST Diagnosis: FLU VACCINE[ICD10: Z23] Diagnosis: PNEUMOCOCCAL VACCINE[ICD10: Z23] Diagnosis: Type 2 diabetes mellitus without complications[ICD10: E11.9] Diagnosis: Mixed hyperlipidemia[ICD10: E78.2] Diagnosis: Essential (primary) hypertension[ICD10: I10] Diagnosis: Localized edema[ICD10: R60.0] Diagnosis: Chronic obstructive pulmonary disease, unspecified[ICD10: J44.9] Neela HYMAN [place] [employer] [facility] CPT-4: 75811 02/10/2018 ([id number]) OFFICE/OUTPATIENT VISIT EST Diagnosis: Type 2 diabetes mellitus with hyperglycemia[ICD10: E11.65] Diagnosis: Mixed hyperlipidemia[ICD10: E78.2] Diagnosis: Essential (primary) hypertension[ICD10: I10] Diagnosis: Chronic obstructive pulmonary disease, unspecified[ICD10: J44.9] Diagnosis: Cutaneous abscess of back [any part, except buttock][ICD10: L02.212] Neela HYMAN [place] [employer] [facility] CPT-4: 51855 11/05/2017 ([id number]) OFFICE/OUTPATIENT VISIT EST Diagnosis: Allergic urticaria[ICD10: L50.0] Gely HYMAN [place] [employer] [facility] CPT-4: 12870 09/09/2017 ([id number]) OFFICE/OUTPATIENT VISIT EST Diagnosis: Generalized enlarged lymph nodes[ICD10: R59.1] Diagnosis: Acute gastritis without bleeding[ICD10: K29.00] Gely HYMAN [place] [employer] [facility] CPT-4: 50114 08/07/2017 ([id number]) OFFICE/OUTPATIENT VISIT EST Diagnosis: Type 2 diabetes mellitus without complications[ICD10: E11.9] Diagnosis: Mixed hyperlipidemia[ICD10: E78.2] Diagnosis: Essential (primary) hypertension[ICD10: I10] Neela ZHANG [place] [employer] [facility] CPT-4: 56844 08/04/2017 ([id number]) OFFICE/OUTPATIENT VISIT EST Diagnosis: Zoster without complications[ICD10: B02.9] Diagnosis: Acute sialoadenitis[ICD10: K11.21] Gely FRIEND ASHER [employer] [facility] CPT-4: 14685 06/04/2017 OFFICE/OUTPATIENT VISIT EST Diagnosis: Zoster without complications[ICD10: B02.9] Diagnosis: Acute sialoadenitis[ICD10: K11.21] Gely HYMAN [place] [employer] [facility] CPT-4: 21840 06/02/2017 ([id number]) OFFICE/OUTPATIENT VISIT EST Diagnosis: Type 2 diabetes mellitus without complications[ICD10: E11.9] Diagnosis: Mixed hyperlipidemia[ICD10: E78.2] Diagnosis: Essential (primary) hypertension[ICD10: I10] Diagnosis: Chronic obstructive pulmonary disease, unspecified[ICD10: J44.9] Neela HYMAN [facility] CPT-4: 55236 05/05/2017 OFFICE/OUTPATIENT VISIT EST Diagnosis: Chronic obstructive pulmonary disease with acute lower respiratory infection[ICD10: J44.0] Diagnosis: Impacted cerumen, bilateral[ICD10: H61.23] Gely HYMAN DO [facility] CPT-4: 37472 04/10/2017 ([id number]) OFFICE/OUTPATIENT VISIT EST Diagnosis: FLU VACCINE[ICD10: Z23] Neela BUI [place] [employer] [facility] CPT-4: 40560 03/28/2017 ([id number]) OFFICE/OUTPATIENT VISIT EST Diagnosis: Type 2 diabetes mellitus without complications[ICD10: E11.9] Diagnosis: Mixed hyperlipidemia[ICD10: E78.2] Diagnosis: Essential (primary) hypertension[ICD10: I10] Diagnosis: Chronic obstructive pulmonary disease, unspecified[ICD10: J44.9] Neela HYMAN [place] [employer] [facility] CPT-4: 96753 02/03/2017 ([id number]) OFFICE/OUTPATIENT VISIT EST Diagnosis: Type 2 diabetes mellitus with hyperglycemia[ICD10: E11.65] Diagnosis: Mixed hyperlipidemia[ICD10: E78.2] Diagnosis: Essential (primary) hypertension[ICD10: I10] Diagnosis: Chronic obstructive pulmonary disease, unspecified[ICD10: J44.9] Neela HYMAN DO [facility] CPT-4: 48562 10/30/2016 ([id number]) NO CHARGE Diagnosis: Acute bronchitis, unspecified[ICD10: J20.9] Sammi Najera NEELA Octavio HYMAN [place] [employer] [facility] CPT-4: 98675 08/30/2016 ([id number]) OFFICE/OUTPATIENT VISIT EST Diagnosis: Acute bronchitis, unspecified[ICD10: J20.9] Diagnosis: Other seasonal allergic rhinitis[ICD10: J30.2] Sammi HYMAN [place] [employer] [facility] CPT-4: 61770 08/27/2016 ([id number]) OFFICE/OUTPATIENT VISIT EST Diagnosis: Type 2 diabetes mellitus without complications[ICD10: E11.9] Diagnosis: Mixed hyperlipidemia[ICD10: E78.2] Diagnosis: Essential (primary) hypertension[ICD10: I10] Neela HYMAN [place] [employer] [facility] CPT-4: 50308 07/02/2016 ([id number]) OFFICE/OUTPATIENT VISIT EST Diagnosis: Acute bronchitis, unspecified[ICD10: J20.9] Sammi HYMAN DO [facility] CPT-4: 36985 06/14/2016 ([id number]) OFFICE/OUTPATIENT VISIT EST Diagnosis: Acute bronchitis, unspecified[ICD10: J20.9] Sammi HYMAN [place] [employer] [facility] CPT-4: 46199 06/13/2016 ([id number]) OFFICE/OUTPATIENT VISIT EST Diagnosis: Essential (primary) hypertension[ICD10: I10] Neela HYMAN [place] [employer] [facility] CPT-4: 09117 05/14/2016 ([id number]) OFFICE/OUTPATIENT VISIT EST Diagnosis: Essential (primary) hypertension[ICD10: I10] Neela HYMAN DO [facility] CPT-4: 98994 04/29/2016 ([id number]) OFFICE/OUTPATIENT VISIT EST Diagnosis: Unspecified abdominal pain[ICD10: R10.9] Diagnosis: Left lower quadrant pain[ICD10: R10.32] Diagnosis: Left upper quadrant pain[ICD10: R10.12] Diagnosis: Essential (primary) hypertension[ICD10: I10] Neela HYMAN DO [facility] CPT-4: 08122 04/22/2016 ([id number]) OFFICE/OUTPATIENT VISIT EST Diagnosis: Type 2 diabetes mellitus without complications[ICD10: E11.9] Diagnosis: Mixed hyperlipidemia[ICD10: E78.2] Diagnosis: Essential (primary) hypertension[ICD10: I10] Neela HYMAN DO [facility] CPT-4: 02188 04/01/2016 ([id number]) OFFICE/OUTPATIENT VISIT EST Diagnosis: Type 2 diabetes mellitus with hyperglycemia[ICD10: E11.65] Diagnosis: Mixed hyperlipidemia[ICD10: E78.2] Diagnosis: Essential (primary) hypertension[ICD10: I10] Neela HYMAN DO [facility] CPT-4: 38614 11/30/2015 ([id number]) OFFICE/OUTPATIENT VISIT EST Diagnosis: Type 2 diabetes mellitus with diabetic neuropathy, unspecified[ICD10: E11.40] Diagnosis: Essential (primary) hypertension[ICD10: I10] Diagnosis: Mixed hyperlipidemia[ICD10: E78.2] Neelasabina Zhanginna RONNA ASHER HYMAN DO [facility] CPT-4: 54035 08/29/2015 ([id number]) OFFICE/OUTPATIENT VISIT EST Diagnosis: COUGH[ICD10: R05] Diagnosis: Wheezing[ICD10: R06.2] Diagnosis: Type 2 diabetes mellitus with diabetic neuropathy, unspecified[ICD10: E11.40] Neela HYMAN DO [facility] CPT-4: 28252 08/14/2015 ([id number]) OFFICE/OUTPATIENT VISIT EST Diagnosis: Other seasonal allergic rhinitis[ICD10: J30.2] Diagnosis: Dyspnea, unspecified[ICD10: R06.00] Diagnosis: Wheezing[ICD10: R06.2] Sammi Najera NEELA HYMAN DO [facility] CPT-4: 97088 08/09/2015 ([id number]) OFFICE/OUTPATIENT VISIT EST Diagnosis: Essential (primary) hypertension[ICD10: I10] Diagnosis: Type 2 diabetes mellitus with hyperglycemia[ICD10: E11.65] Diagnosis: Mixed hyperlipidemia[ICD10: E78.2] Neela Orendinna ANNJYOTIRYAN HYMAN DO [facility] CPT-4: 51604 05/22/2015 ([id number]) OFFICE/OUTPATIENT VISIT EST Diagnosis: DM W/O COMPLICATION TYPE II[ICD9: 250.00] Diagnosis: - I - HYPERTENSION[ICD9: 401.9] Diagnosis: - I - HYPERLIPIDEMIA NEC/NOS[ICD9: 272.4] Diagnosis: Left hand paresthesia[ICD9: 782.0] Neela Yenni FRIEND ASHER Octavio ZHANG [employer] [facility] CPT-4: 36663 02/13/2015 ([id number]) OFFICE/OUTPATIENT VISIT EST Diagnosis: HYPERLIPIDEMIA NEC/NOS[ICD9: 272.4] Diagnosis: DM W/O COMPLICATION TYPE II[ICD9: 250.00] [facility] 97990 11/07/2014 ([id number]) OFFICE/OUTPATIENT VISIT EST Diagnosis: ALLERGIC RHINITIS[ICD9: 477.9] Diagnosis: WHEEZING[ICD9: 786.07] Neela Duarte [place] [employer] CPT-4: 74731 10/04/2014 ([id number]) OFFICE/OUTPATIENT VISIT EST Diagnosis: BRONCHITIS, ACUTE[ICD9: 466.0] Diagnosis: WHEEZING[ICD9: 786.07] Loren Duarte [place] [employer] [facility] CPT-4: 53608 09/22/2014 ([id number]) OFFICE/OUTPATIENT VISIT EST Diagnosis: DYSPNEA[ICD9: 786.09] Diagnosis: WHEEZING[ICD9: 786.07] Diagnosis: Arrhythmia[ICD9: 427.9] Loren [facility] CPT-4: 92709 09/21/2014 ([id number]) OFFICE/OUTPATIENT VISIT EST Diagnosis: DM W/O COMPLICATION TYPE II, 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] Diagnosis: - I - HYPERLIPIDEMIA NEC/NOS[ICD9: 272.4] Diagnosis: - I - HYPERTENSION[ICD9: 401.9] Neela MIRZALINE Octavio [facility]: 07202 06/28/2014 OFFICE/OUTPATIENT VISIT EST Diagnosis: SINUSITIS, ACUTE[ICD9: 461.9] Diagnosis: OTITIS MEDIA NOS[ICD9: 382.9] Sarah Sunshine NEELA Octavio [facility]: 09146 06/10/2014 ([id number]) OFFICE/OUTPATIENT VISIT EST Diagnosis: DM W/O COMPLICATION TYPE II[ICD9: 250.00] Diagnosis: - I - HYPERLIPIDEMIA NEC/NOS[ICD9: 272.4] Diagnosis: - I - HYPERTENSION[ICD9: 401.9] Neela HYMAN [facility] CPT-4: 78227 03/29/2014 ([id number]) OFFICE/OUTPATIENT VISIT EST Diagnosis: DM W/O COMPLICATION TYPE II[ICD9: 250.00] Diagnosis: - I - HYPERTENSION[ICD9: 401.9] Diagnosis: - I - HYPERLIPIDEMIA NEC/NOS[ICD9: 272.4] Diagnosis: Hand lesion[ICD9: 709.9] Neela MADRIGAL [facility] CPT-4: 18658 11/30/2013 ([id number]) OFFICE/OUTPATIENT VISIT EST Diagnosis: DM W/O COMPLICATION TYPE II[ICD9: 250.00] Diagnosis: HYPERLIPIDEMIA NEC/NOS[ICD9: 272.4] Diagnosis: HYPERTENSION[ICD9: 401.9] Neela VASQUEZ [facility] CPT-4: 73004 08/03/2013 ([id number]) OFFICE/OUTPATIENT VISIT EST Diagnosis: DM W/O COMPLICATION TYPE II, 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] Diagnosis: HYPERTENSION[ICD9: 401.9] Diagnosis: HYPERLIPIDEMIA NEC/NOS[ICD9: 272.4] Neela HYMAN [facility] CPT-4: 88149 04/06/2013 ([id number]) OFFICE/OUTPATIENT VISIT EST Diagnosis: DM W/O COMPLICATION TYPE II[ICD9: 250.00] Diagnosis: HYPERLIPIDEMIA NEC/NOS[ICD9: 272.4] Diagnosis: HYPERTENSION[ICD9: 401.9] Neela VASQUEZ [facility] CPT-4: 87683 12/01/2012 ([id number]) OFFICE/OUTPATIENT VISIT EST Diagnosis: DM W/O COMPLICATION TYPE II[ICD9: 250.00] Diagnosis: HYPERTENSION[ICD9: 401.9] Diagnosis: HYPERLIPIDEMIA NEC/NOS[ICD9: 272.4] Neela HYMAN [facility] CPT-4: 23710 08/04/2012 ([id number]) OFFICE/OUTPATIENT VISIT EST Diagnosis: URINARY FREQUENCY[ICD9: 788.41] Neela HYMAN [facility] CPT-4: 82413 06/01/2012 OFFICE/OUTPATIENT VISIT EST Diagnosis: Agitation[ICD9: 307.9] Diagnosis: Frequent urination[ICD9: 788.41] Janet Jean Baptiste NEELA JulissaMendez YENNI [facility] CPT-4: 68442 05/29/2012 OFFICE/OUTPATIENT VISIT EST Diagnosis: SINUSITIS, ACUTE[ICD9: 461.9] Diagnosis: OTALGIA[ICD9: 388.70] Neela Sergeushainna MIRZANEELA Octavio [facility]PT[facility]: 98499 05/25/2012 OFFICE/OUTPATIENT VISIT EST Diagnosis: DM W/O COMPLICATION TYPE II, 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] Diagnosis: HYPERTENSION[ICD9: 401.9] Diagnosis: HYPERLIPIDEMIA NEC/NOS[ICD9: 272.4] Neela Sergeushainna ANNJUAN CARLOS DARLINE [facility] CPT-4: 08180 04/07/2012 OFFICE/OUTPATIENT VISIT EST Diagnosis: FINGER INJURY[ICD9: 959.5] Janet Markel MURILLO [facility]av[facility] C[facility]: 01224 12/16/2011 ([id number]) OFFICE/OUTPATIENT VISIT EST Diagnosis: DM W/O COMPLICATION TYPE II, 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] Diagnosis: HYPERTENSION[ICD9: 401.9] Diagnosis: HYPERLIPIDEMIA NEC/NOS[ICD9: 272.4] Neela Zhanginna ANNJUAN CARLOS DARLINE [facility] CPT-[facility]: 23594 12/03/2011 ([id number]) OFFICE/OUTPATIENT VISIT EST Diagnosis: DM W/O COMPLICATION TYPE II[ICD9: 250.00] Diagnosis: HYPERLIPIDEMIA NEC/NOS[ICD9: 272.4] Diagnosis: HYPERTENSION[ICD9: 401.9] Neela MURILLO JulissaMendez SERGE VASQUEZ [facility] CPT-4: 88965 08/29/2011 OFFICE/OUTPATIENT VISIT EST Diagnosis: DM W/O COMPLICATION TYPE II[ICD9: 250.00] Diagnosis: HYPERLIPIDEMIA NEC/NOS[ICD9: 272.4] Diagnosis: HYPERTENSION[ICD9: 401.9] Neela MURILLO JulissaMendez SERGE VASQUEZ [facility] CPT-4: 90009 05/30/2011 OFFICE/OUTPATIENT VISIT EST Diagnosis: SKIN SENSATION DISTURB[ICD9: 782.0] Neela [facility] CPT-4: 94235 01/29/2011 OFFICE/OUTPATIENT VISIT EST Diagnosis: SKIN SENSATION DISTURB[ICD9: 782.0] Neela [facility] CPT-4: 27630 01/14/2011 OFFICE/OUTPATIENT VISIT EST [facility]ela [facility] CPT- 4: 70049 01/01/2011 OFFICE/OUTPATIENT VISIT EST Ne[facility] CPT- 4: 41154 11/29/2010 ([id number]) OFFICE/OUTPATIENT VISIT EST Neela HORAN SMendez [facility] CPT-4: 77398 08/28/2010 ([id number]) OFFICE/OUTPATIENT VISIT, EST Neela WILDE SMendez [facility] CPT-4: 32770 06/05/2010 ([id number]) OFFICE/OUTPATIENT VISIT, EST Neela [facility] CPT-4: 48594 02/05/2010 ([id number]) OFFICE/OUTPATIENT VISIT, EST Neela [facility] CPT-4: 25920 10/09/2009 ([id number]) OFFICE/OUTPATIENT VISIT, EST Neela WILDE SMendez [facility] CPT-4: 54994 08/22/2009 Plan of Care Planned Activity Notes Codes Status Date Visit Diagnosis Plan: Sore on toe Discussion: Keep farhat an/dry Keflex Notify if worsens ICD-9 : 709.9 ICD-10 : L98.9 07/06/2019 Patient Education: Makenzieir- OptimizeRClaudia Blue [phone] https://www.Eventfinda.wrenchguys mobile/samplemd/resources/getResource/61/[email or web address] Completed 07/06/2019 Visit Diagnosis Plan: Lymphoma involving lung Discussi on: Doing weekly lab and chemo ICD-9 : 202.82 ICD-10 : C85.99 05/10/2019 Visit Diagnosis Plan: Advanced chronic obstructive pul monary disease Discussion: Continue oxygen and pulmonary rehab Follow Up: 3 months ICD-9 : 496 ICD-10 : J44.9 05/10/2019 Appointment: Neela Hymantel: [address] [place], [place] [address] FOLLOW UP 05/10/2019 Appointment: Neela Hymantel: [address] [place] [address] he called 04/14/19-- he was at physical [...] : J44.1 03/29/2019 Appointment: Neela Hyman WPtel: [address] [place], [place] [phone] Hospital Follow Up 03/29/2019 Appointment: Neela Hyman WPtel: [address] [place], [place] [phone] [place] INJECTION 03/04/2019 Visit Diagnosis Plan: Other nonspecific abnormal findi ng of lung field Discussion: Referral to pulmonology--will likely need bronchoscopy--path results discussed ICD-9 : 786.6 ICD-10 : R91.8 01/05/2019 Visit Diagnosis Plan: Chronic obstructiv e pulmonary disease with (acute) exacerbation Discussion: Increase SVNS with duoneb to QID Prednisone taper ICD-9 : 491.21 ICD-10 : J44.1 01/05/2019 Appointment: Neela Hyman WPtel: [address] [place], [place] [phone] [place] FOLLOW UP 01/05/2019 Patient Education: prednisone- OptimizeRX Coupon [phone] https://www.[employer]oMedics/samplemd/resources/getResource/61/[email or web address]-uo Completed 01/05/2019 Care Plan: Referral Order SNOMED-CT : 30 [id number] Pending 01/05/2019 Appointment: Neela Hyman WPtel: [address] [place], [place] [phone] [place] CANCELED 12/21/2018 Visit Diagnosis Plan: Solitary pulmonary nodule Discus esmer: CT guided needle biopsy of RUL lung mass ICD-9 : 793.11 ICD-10 : R91.1 12/09/2018 Visit Diagnosis Plan: Tinea corporis Discussion: Diflu can--hold simvastatin and fenofibrate while taking ICD-9 : 110.5 ICD-10 : B35.4 12/09/2018 Appointment: Neela Hyman WPtel: [address] [place] [address] [place] FOLLOW UP 12/09/2018 Appointment: Gely Harp [address] [place] [address] NO SHOW 12/01/2018 Visit Diagnosis Plan: Other [...] : J44.9 11/24/2018 Appointment: Neela Hyman WPtel: [address] [place], [place] [address] US FOLLOW UP 11/24/2018 Care Plan: PET IMAGE FULL BODY LOINC : 4 2711-2 Pending 11/24/2018 Appointment: Neela [facility] [address] [facility] [place] Consult 09/21/2018 Visit Diagnosis Plan: Pneumonia, unspecified organism Discussion: Patient clinically improved. Recent CT scan from 09/07 showed unresolved right upper lobe pneumonia. Finished another 7 days of levaquin. Will repeat CBC early next week. [facility] recommended in 4 weeks. Patient states understanding. ICD-9 : 486 ICD-10 : J18.9 09/16/2018 Appointment: Amita Henderson [facility] [place] [phone] FOLLOW UP 09/16/2018 Visit Diagnosis Plan: Pneumonia, unspecified organism Discussion: Clinically patient feels and looks much better but need CT scan of chest due to ongoing round pneumonia in association with his known lymphoma ICD-9 : 486 ICD-10 : J18.9 09/03/2018 Appointment: Neela Hyman WPtel: [facility] FOLLOW UP 09/03/2018 Care Plan: CT [...] : I10 08/27/2018 Appointment: Amita Henderson [address] [id number] 08/27/2018 Visit Diagnosis Plan: Other [...] 486 ICD-10 : J18.9 08/13/2018 Appointment: Amita Henderosn [id number] FOLLOW UP 08/13/2018 Appointment: Amita Henderson [facility] [place] [id number] CANCELED 08/13/2018 Patient Education: prednisone- OptimizeRX Coupon [phone] https://www.EmboMedics/sampleShangPin/resources/getResource/61/[email or web address] Completed 08/13/2018 Visit Diagnosis Plan: Other specified [...] ICD-10 : J18.9 08/11/2018 Appointment: Amita Henderson [address] [place] [address] ACUTE ILLNESS 08/11/2018 Care Plan: CHEST X-RAY 2VW FRONTAL&LATL LOINC : 62529-7 Pending 07/20/2018 Visit Diagnosis Plan: Dyspnea, unspecified Discussion: CXR- to be completed at the hospital. Will call with results and any adjustments in plan. Solumedrol 125 administered in clinic Prednisone 20 mg BID x 5 days- start tomorrow ICD-9 : 786.09 ICD-10 : R06.00 07/16/2018 Appointment: Amita Henderson [address] [place] [address] ACUTE ILLNESS 07/16/2018 Patient Education: prednisone- OptimizeRX Coupon [phone] https://www.EmboMedics/samplemd/resources/getResource/61/[email or web address]-[email or web address] Completed 07/16/2018 Visit Diagnosis Plan: Acute bronchitis due to other sp ecified organisms Discussion: Kenalog 40 mg IM administered in clinic. Doxycycline called into [facility]. Take as directed. Continue nebulizer and Trelegy. Follow up if symptoms are not improving with treatment regimen. Patient states understanding of all instruction. ICD-9 : 466.0 ICD-10 : J20.8 07/13/2018 Appointment: Amita Henderson [address] [place] [address] ACUTE ILLNESS 07/13/2018 Patient Education: doxycycline hyclate- OptimizeRX Cou saritha [id number] https://www.Eventfinda.com/samplemd/resources/getResource/61/0k836s32-7y5t-2484-4n Completed 07/13/2018 Care Plan: [place] : [address]-4 Pending 07/13/2018 Care Plan: CBC Pending 07/13/2018 Care Plan: A1C HPLC LOINC : 52835-6 Pending 07/13/2018 Visit Diagnosis Plan: Mixed hyperlipidemia [...] : J44.9 06/03/2018 Appointment: Neela Hyman WPtel: [address] [place] [address] [place] FOLLOW UP 06/03/2018 Visit Diagnosis Plan: [...] ICD-10 : J44.9 05/04/2018 Appointment: Gely Harp [address] [place] [address] ACUTE ILLNESS 05/04/2018 Visit Diagnosis Plan: Localized edema Discussion: Cont inue lasix and potassium at every other day Recheck lab and fwup in 3mos Follow Up: 3 months ICD-9 : 782.3 ICD-10 : R60.0 03/03/2018 Appointment: Neela Hyman WPtel: [address] [place] [address] [place] FOLLOW UP 03/03/2018 Patient Education: Patient Medication Summary Completed 03/03/2018 Visit Diagnosis Plan: Localized edema Discussion: Finch ge lasix and potassium to every other day Check Chem 7 in 2 weeks and fwup ICD-9 : 782.3 ICD-10 : R60.0 02/17/2018 Appointment: Neela Hyman WPtel: [address] [place] [address] [place] FOLLOW UP 02/17/2018 Patient Education: Patient [...] Appointment: Neela Hyman WPtel: [phone] [facility] FOLLOW UP 11/05/2017 Patient Education: Patient Medication Summary Completed 11/05/2017 Patient Education: Patient Medication Summary Completed 11/03/2017 Care Plan: [place] : [address]-2 Pending 11/03/2017 Care Plan: LIPID PANEL LOINC : 72598-7 Pending 11/03/2017 Care Plan: CBC Pending 11/03/2017 Care Plan: A1C HPLC LOINC : 37265-0 Pending 11/03/2017 Visit Diagnosis Plan: Allergic urticaria [...] : L50.0 09/09/2017 Appointment: [facility]p [facility] [facility] 09/09/2017 Patient Education: Patient Medication [...] : K29.00 08/07/2017 Appointment: [facility] Harp [facility] [facility] Follow Up 08/07/2017 Patient Education: Patient Medication Summary Completed 08/07/2017 Visit Diagnosis Plan: Essential (primary) hypertension Discussion: Increase Cardizem CD to 360mg daily ICD-9 : 401.9 ICD-10 : I10 08/04/2017 Visit Diagnosis Plan: Type 2 diabetes mellitus without complications Discussion: Accuchecks daily Lab discussed Continue current meds ICD-9 : 250.00 ICD-10 : E11.9 08/04/2017 Appointment: Neela Hyman WPtel: [address] [facility] FOLLOW UP 08/04/2017 Patient Education: Patient Medication Summary Completed 08/04/2017 Patient Education: Patient Medication Summary Completed 07/31/2017 Care Plan: [place] : [address]-6 Pending 07/31/2017 Care Plan: ASSAY THYROID STIM HORMONE Pen ding 07/31/2017 Care Plan: LIPID PANEL LOINC : 76866-3 Pending 07/31/2017 Care Plan: CBC Pending 07/31/2017 Care Plan: A1C HPLC LOINC : 02225-3 Pending 07/31/2017 Patient Education: Patient Medication Summary Completed 06/19/2017 Patient Education: Patient Medication Summary Completed 06/09/2017 Care Plan: CT SOFT TISSUE [place] : [address]-2 Pending 06/09/2017 Visit Diagnosis Plan: Acute sialoadenitis [...] ICD-10 : B02.9 06/04/2017 Appointment: Gely Harp [address] [place], [place] [phone] ACUTE ILLNESS 06/04/2017 Patient Education: Patient Medication Summary Completed 06/04/2017 Visit Diagnosis Plan: Acute sialoadenitis Discussion: cleocin prescribed bid for 7 days. instructed patient to come back to clinic on friday and will re- evaluate swelling. if no improvement, will refer to dr. davisdon for possible drainage. if worsening by then, call or rtc also. ICD-9 : 527.2 ICD-10 : K11.21 06/02/2017 Visit Diagnosis Plan: Zoster without complications Dis cussion: discussed disease and incubation period, when patient is no longer contagious. treated with acyclovir 5x a day for a week. ICD-9 : 053.9 ICD-10 : B02.9 06/02/2017 Appointment: Gely Harp [address] [place], [place] [phone] ACUTE ILLNESS 06/02/2017 [...] E78.2 05/05/2017 Appointment: Neela Hyman WPtel: [phone] [facility] FOLLOW UP 05/05/2017 Patient Education: Patient Medication Summary Completed 05/05/2017 Patient Education: Patient Medication Summary Completed 05/01/2017 Care Plan: A1C HPLC [facility] : 09679-5 Pending 05/01/2017 Visit Diagnosis Plan: Chronic obstructiv [...] ICD-10 : H61.23 04/10/2017 Appointment: Gely Harp [address] [place] [address] ACUTE ILLNESS 04/10/2017 Patient Education: Patient Medication Summary Completed 04/10/2017 Appointment: Neela Hyman WPtel: [address] [place] [address] INJECTION 03/28/2017 Patient Education: Patient Medication Summary [...] : E11.9 02/03/2017 Appointment: Neela Hyman WPtel: [address] [place] [address] FOLLOW UP 02/03/2017 Patient Education: Patient Medication Summary Completed 02/03/2017 Patient Education: Patient Medication Summary Completed 01/30/2017 Care Plan: [place] : 22[address]-5 Pending 01/30/2017 Care Plan: LIPID PANEL LOINC : 94390-0 Pending 01/30/2017 Care Plan: CBC Pending 01/30/2017 Care Plan: A1C HPLC LOINC : 70637-8 Pending 01/30/2017 Care Plan: ASSAY OF PSA [...] : J44.9 10/30/2016 Appointment: Neela Hyman WPtel: [address] [place], [place] [address] [place] 6/ lm ~sl 10/30 confirmed~sl FOLLOW UP 11/2016 Patient Education: Patient Medication Summary Completed 10/30/2016 Patient Education: Patient Medication Summary Completed 10/24/2016 Visit Diagnosis Plan: Acute bronchitis, unspecified Di scussion: Patient sounds and looks much improved Continue current regimen Keep appt with Dr Levi for Friday Follow up PRN ICD-9 : 466.0 ICD-10 : J20.9 08/30/2016 Appointment: [facility]era [facility] [facility] [place] 4/6 rang and rang rang /7 [...] : J20.9 08/27/2016 Appointment: Sammi Najera [address] [facility] FOLLOW UP 08/27/2016 Patient Education: Patient Medication Summary Completed 08/27/2016 Care Plan: Referral Order SNOMED-CT : 30 1328448 Pending 08/27/2016 Visit Diagnosis Plan: Type 2 [...] : E78.2 07/02/2016 Appointment: Neela Hyman WPtel: [address] [place], [place] [address] 07/01 rang and rang`sl FOLLOW UP 7 Patient Education: Patient Medication Summary Completed 07/02/2016 Patient Education: Patient Medication Summary Completed 06/27/2016 Care Plan: LIPID PANEL LOINC : 32438-6 Pending 06/27/2016 Care Plan: [place] : [address]-8 Pending 06/27/2016 Care Plan: A1C HPLC LOINC : 08134-6 Pending 06/27/2016 Visit Diagnosis Plan: Acute bronchitis, [...] : J20.9 06/14/2016 Appointment: Sammi Najera [address] [place], [place] [address] FOLLOW UP 06/14/2016 Patient Education: Patient Medication [...] : J20.9 06/13/2016 Appointment: Sammi Najera [address] [place], [place] [address] ACUTE ILLNESS 06/13/2016 Patient Education: Patient Medication Summary Completed 06/13/2016 Care Plan: CHEST X-RAY 2VW FRONTAL&LATL LOINC : 13496-5 Pending 06/13/2016 Visit Plan: Increase metoprolol to 100mg po BID BP readings and BP check in 1month 05/14/2016 Appointment: Neela Hyman WPtel: [address] [place], [place] [phone] 05/13 rang and rang`sl FOLLOW UP 6 Patient Education: Patient Medication Summary Completed 05/14/2016 Visit Plan: Increase metoprolol to 50mg BID BP check in 1 week f/u BP appt 2 weeks consider musculoskeletal if pain returns 04/29/2016 Appointment: Neela Hyman WPtel: [address] [place], [place] [phone] 04/25 confimred~sl FOLLOW UP 04/29/2016 Patient Education: Patient Medication Summary Completed 04/29/2016 Visit Plan: Stat CT scan of abdomen/pelv is to look for stone Hydrate and use tramadol prn Increase metoprolol to 25mg po BID Will see urology pending CT scan results 04/22/2016 Appointment: Neela Hyman WPtel: [address] [place], [place] [phone] 04/17 confirmed-sp ACUTE [...] flu shot 04/01/2016 Appointment: Neela Hyman WPtel: [address] [place], [place] [phone] FOLLOW UP 04/01/2016 Patient Education: Patient Medication Summary Completed 04/01/2016 Patient Education: [facility] - Saving AutoInj - 18-64 - Dynamic Heber l ID Completed 04/01/2016 Patient Education: Patient Medication Summary Completed 03/28/2016 Care Plan: A1C HPLC LOINC : 84148-9 Pending 03/28/2016 Care Plan: [place] : 08860-1 Pending 03/28/2016 Visit Plan: Lab discussed Continue curre nt meds Accuchecks daily 11/30/2015 Appointment: Neela Hyman WPtel: [address] [place], [place] [phone] 7/6 confirmed~sl FOLLOW UP 11/30/2015 Patient Education: Patient Medication Summary Completed 11/30/2015 Appointment: Neela Hyman WPtel: [address] [place], [place] [phone] RESCHEDULED 11/28/2015 Patient Education: Patient Medication Summary Completed 11/23/2015 Care Plan: [place] : 91625-9 Pending 11/23/2015 Care Plan: LIPID PANEL LOINC : 01046-6 Pending 11/23/2015 Care Plan: CBC Pending 11/23/2015 Care Plan: A1C HPLC LOINC : 17499-2 Pending 11/23/2015 Visit Plan: Lab discussed Accuchecks richard ly Continue current meds Cymbalta helping with feet and mood 08/29/2015 Appointment: Neela Hyman WPtel: [address] [place], [place] [phone] FOLLOW UP 08/29/2015 Patient Education: Patient Medication Summary Completed 08/29/2015 Visit Plan: Check CXR Stop all steroids and steroid inhalers Use SVN with but change to duoneb Add singulair for allergy etiology Change fluoxetine to cymbalta 60mg daily Viagra samples given to try prn--warned of no nitrates 08/14/2015 Appointment: Neela Hyman WPtel: [address] [place], [place] [phone] lm to reschedule ~sl 07/27 lm ~sl 08/09 busy 08/10 conf irmed-sp Annual Well Visit 08/14/2015 Patient Education: Patient Medication Summary Completed 08/14/2015 Care Plan: CHEST X-RAY 2VW FRONTAL&LATL LOINC : 63973-6 Ordered 08/14/2015 Visit Plan: Decadron 8mg given [...] as expected 08/09/2015 Appointment: Sammi Najera [address] [facility] ER Follow UP 08/09/2015 Patient Education: Patient Medication Summary Completed 08/09/2015 Patient Education: [facility] - Saving AutoInj - 18-64 [...] with it 05/22/2015 Appointment: Neela Hyman WPtel: [address] [place], [place] [phone] 05/17 confirmed~sl FOLLOW UP 05/22/2015 Patient Education: Patient Medication Summary Completed 05/22/2015 Patient Education: Patient Medication Summary Completed 05/15/2015 Visit Plan: Obtain EMGs done at Early from when fractured left arm Lab discussed Accuchecks daily 02/13/2015 Appointment: Neela Hyman WPtel: [address] [place], [place] [phone] 02/10 confrimed FOLLOW UP 02/13/2015 Patient Education: Patient Medication Summary Completed 02/13/2015 Patient Education: Patient Medication Summary Completed 02/09/2015 Visit Plan: discussed lab add fenofibrat e 134mg po daily recheck fasting lab in 3 months, CBC, CMP, Lipids, hgb AIC 11/07/2014 Appointment: Neela Hyman WPtel: [address] [place], [place] [phone] 11/04 appt confirmed cn FOLLOW UP 015 Patient Education: Patient Medication Summary Completed 11/07/2014 Patient Education: Patient Medication Summary Completed 11/03/2014 Visit Plan: Continue loratadine 10mg richard ly Notify if symptoms return 10/04/2014 Appointment: Neela Hyman WPtel: [address] [place], [place] [phone] confirmed on 10/03 at 2:42pm FOLLOW UP 09/23 Patient Education: Patient Medication Summary Completed 10/04/2014 Appointment: Neela Hyman WPtel: [address] [place], [place] [phone] ACUTE ILLNESS 09/28/2014 Appointment: Loren Garza WPtel: [address] [place], [place] [phone] FOLLOW UP 09/22/2014 Patient Education: Patient Medication Summary Completed 09/22/2014 Appointment: Loren Garza WPtel: [address] [place], [place] [phone] ACUTE ILLNESS 09/21/2014 Patient Education: Patient Medication Summary Completed 09/21/2014 Patient Education: [facility] - Saving AutoInj - 18+ - Dynamic Portal ID Completed 09/21/2014 Visit Plan: Lab discussed Continue daily accuchecks Continue current meds 06/28/2014 Appointment: Neela Hyman WPtel: [address] [place], [place] [phone] FOLLOW UP 06/28/2014 Patient Education: Patient Medication Summary Completed 06/28/2014 Patient Education: Patient Medication Summary Completed 06/23/2014 Appointment: Sarah Sunshine WPtel: [address] [place], [place] [phone] ACUTE ILLNESS 06/10/2014 Patient Education: Patient Medication Summary Completed 06/10/2014 Patient Education: [facility] - Saving AutoInj - 18+ - Dynamic Portal ID Completed 06/10/2014 Visit Plan: Lab discussed Continue daily accuchecks Continue current meds 03/29/2014 Appointment: Neela Hyman WPtel: [address] [place], [place] [phone] FOLLOW UP 03/29/2014 Patient Education: Patient Medication Summary Completed 03/29/2014 Patient Education: Patient Medication Summary Completed 03/23/2014 Visit Plan: Lab discussed Continue curre nt meds and accuchecks See surgery for removal of hand lesion 11/30/2013 Appointment: Neela Hyman WPtel: [address] [place] [address] 11/29 no answer FOLLOW UP 11/30/2013 Patient Education: Patient Medication Summary Completed 11/30/2013 Visit Plan: Lab discussed Continue curre nt meds 08/03/2013 Appointment: Neela Hyman WPtel: [address] [place] [address] FOLLOW UP 08/03/2013 Patient Education: Patient Medication Summary Completed 08/03/2013 Visit Plan: Lab Discussed Will continue current meds and pt will get back on diet/exercise Check lab in 4mos and fwup 04/06/2013 Appointment: Neela Hyman WPtel: [address] [place] [address] FOLLOW UP 04/06/2013 Patient Education: Patient Medication Summary Completed 04/06/2013 Visit Plan: Lab discussed Continue daily accuchecks 12/01/2012 Appointment: Neela Hyman WPtel: [address] [place], [place] [phone] 11/30 no answer FOLLOW UP 12/01/2012 Patient Education: Patient Medication Summary Completed 12/01/2012 Visit Plan: Continue current meds and da russell accuchecks Lab discussed 08/04/2012 Appointment: Neela Hyman WPtel: [address] [place], [place] [phone] [place] FOLLOW UP 08/04/2012 Patient Education: Patient Medication Summary Completed 08/04/2012 Appointment: Neela Hyman WPtel: [address] [place], [place] [phone] [facility] 06/01/2012 Patient Education: Patient Medication Summary Completed 06/01/2012 Appointment: Janet Jean Baptiste WPtel: [address] [place], [place] [phone] FOLLOW UP 05/29/2012 Patient Education: Patient Medication Summary Completed 05/29/2012 Visit Plan: pt states Dr. Hyman told h is to increase his Prozac dose while she was talking to her at [facility]. Discussed that pt. should not increase or decrease dosage without Dr's knowledge. Pt. will seek hearing test here in town at the hearing aid place on [address]. Discussed that ear pain is likely caused by sinus pressure. Pt. will notify if no improvement. 05/25/2012 Appointment: Janet Jean Baptiste WPtel: [address] [place] [address] ACUTE ILLNESS 05/25/2012 Patient Education: Patient Medication Summary Completed 05/25/2012 Visit Plan: Continue current meds Contin ue daily accuchecks but alternate times Increase fish oil to 3gm daily 04/07/2012 Appointment: Neela Hyman WPtel: [address] [place] [address] 04/06 FOLLOW UP 04/07/2012 Patient Education: Patient Medication Summary Completed 04/07/2012 Appointment: Janet Jean Baptiste WPtel: [address] [place], [place] [phone] ACUTE ILLNESS 12/16/2011 Patient Education: Patient Medication Summary Completed 12/16/2011 Visit Plan: Increase 12/03/2011 Appointment: Neela Hyman WPtel: [address] [place], [place] [phone] FOLLOW UP 12/03/2011 Patient Education: Patient Medication Summary Completed 12/03/2011 Visit Plan: Continue current meds Contin ue accuchecks 08/29/2011 Appointment: Neela Hyman WPtel: [address] [place], [place] [phone] FOLLOW UP 08/29/2011 Patient Education: Patient Medication Summary Completed 08/29/2011 Visit Plan: Continue current meds except restart zocor 05/30/2011 Appointment: Neela Hyman WPtel: [address] [place], [place] [phone] FOLLOW UP 05/30/2011 Patient Education: Patient Medication Summary Completed 05/30/2011 Visit Plan: Continue tennis elbow strap May go back to weight-lifing--light weigts every other day 01/29/2011 Appointment: Neela Hyman WPtel: [address] [place], [place] [phone] FOLLOW UP 01/29/2011 Patient Education: Patient Medication Summary Completed 01/29/2011 Visit Plan: Continue tennis elbow strap and anti-inflammatories 01/14/2011 Appointment: Neela Hyman WPtel: [address] [place], [place] [phone] FOLLOW UP 01/14/2011 Appointment: Janet Jean Baptiste WPtel: [address] [place], [place] [phone] NEW PATIENT 01/14/2011 Patient Education: Patient Medication Summary Completed 01/14/2011 Appointment: Neela Hyman WPtel: [address] [place], [place] [phone] FOLLOW UP 01/08/2011 Appointment: Neela Hyman WPtel: [address] [place], [place] [phone] FOLLOW UP 01/01/2011 Appointment: Neela Hyman WPtel: [address] [place], [place] [phone] UA 01/01/2011 Patient Education: Patient Medication Summary [...] 11/29/2010 Appointment: Janet Jean Baptiste WPtel: [address] [place] [address] ACUTE ILLNESS 11/29/2010 Patient Education: Patient Medication Summary Completed 11/29/2010 Visit Plan: Cont current meds Check CMP, Lipids, HbA1C 08/28/2010 Appointment: Neela Hyman WPtel: [address] [place] [address] FOLLOW UP 08/28/2010 Patient Education: Patient Medication Summary Completed 08/28/2010 Visit Plan: Cont current meds and accuch ecks Add Zocor 40mg q HS Check Lipids and HbA1C in 3mos 06/05/2010 Appointment: Neela Hyman WPtel: [address] [place] [address] FOLLOW UP 06/05/2010 Patient Education: Patient Medication Summary Completed 06/05/2010 Visit Plan: Check Lipids and HbA1C 02/05/2010 Appointment: Neela Hyman WPtel: [address] [place] [address] FOLLOW UP 02/05/2010 Patient Education: Patient Medication Summary Completed 02/05/2010 Visit Plan: HbA1C in 3mos. Continue Accu checks BID alternating times. Check HbA1C, CMP, Lipids 10/09/2009 Appointment: Neela Hyman WPtel: [address] [place] [address] FOLLOW UP 10/09/2009 Patient Education: Patient Medication Summary Completed 10/09/2009 Visit Plan: Saline nasal flushes prn. Ty lenol/Motrin prn headache. Notify if persists/symptoms worsening. 08/22/2009 Appointment: Neela Hyman WPtel: [address] [place] [address] ACUTE ILLNESS 08/22/2009 Patient Education: Patient Medication Summary Completed 08/22/2009 Referral: [facility] [address] [id number] [place] Office will verfy his insurance then they will contact patient Completed Ref[facility]: Shahbaz [facility] [address] [facility] [address] [id number] [place] Referral Completed Referral: Ion Levi [address] [id number] [place] Referral Appointment Requested Referral: Ion Levi [address] [id number] [place] Referral Appointment Requested Instructions Comment . [...] with it . Obtain EMGs done at [facility] when fractured left arm Lab discussed [...] while she was talking to her at [facility]. Discussed that pt. should not increase or decrease dosage without Dr's knowledge. Pt. will seek hearing test here in town at the hearing aid place on [address]. Discussed that ear pain is likely caused [...]
--- OUTSIDE RECORDS SUMMARY | 2019-12-09 09:19 | XMS REPORT | CCD ---
Author Author Michael Hyman D.O. Organization [facility] Address [address] [place] [address] Phone Care Team Providers Care Construction Tech Name Role Phone Neela Hyman D.O., PP Unavailable CCM Unavailable Summary Purpose Interface Exchange Insurance Providers Payer name Policy type / Coverage type Covered democrat ID Effective Begin Date Effective End Date ABS FOR [employer] Commercial [employer] [id number] Unknown Family History Family History data not found Social History Social History Element Codes Description Effective Dates Marital status Unknown 05/30/[address]: 5322751 Former smoker quit 25 years ago 01/01/2011 [...] Fill Instructions Zocor 40 mg tablet RxNorm: 661509 TAKE ONE TABLET BY M OUTH EVERY NIGHT AT BEDTIME 06/21/2019 11/17/2019 Active MagOx 400 mg (241.3 mg magnesium) tablet RxNorm: 904390 1 Table t(s) Oral QD 06/21/2019 08/20/2019 Active diltiazem ER 360 mg capsule,24 hr,extended release RxNorm: 8 50855 TAKE ONE CAPSULE BY MOUTH AT BEDTIME -REPLACES 300MG 05/17/2019 11/12/2019 Active MagOx 400 mg (241.3 mg magnesium) tablet RxNorm: 296237 1 Table t(s) Oral QD 04/26/2019 06/20/2019 Inactive Lasix 40 mg tablet RxNorm: 657536 40 MG PO DAILY 04/12/2019 No Stop Da te Active Benicar 40 mg tablet RxNorm: 105348 1 Tablet(s) Oral QD 03/29/2019 Active potassium chloride ER 20 mEq tablet,extended release RxNorm: 633223 1 Tablet(s) Oral two times a day 03/29/2019 06/27/2019 Active metformin 500 mg tablet RxNorm: 733362 2 Tablet(s) Oral two afshan es a day 03/29/2019 No Stop Date Active potassium chloride ER 20 mEq tablet,extended release RxNorm: 202657 1 Tablet(s) Oral QD 03/29/2019 03/28/2019 Inactive Benicar 40 mg tablet RxNorm: 274632 1 Tablet(s) Oral QD 03/29/2019 Inactive MagOx 400 mg (241.3 mg magnesium) tablet RxNorm: 976303 1 Table t(s) Oral QD 03/29/2019 04/25/2019 Inactive fenofibrate micronized 134 mg capsule RxNorm: 817799 TA KE ONE CAPSULE BY MOUTH EVERY DAY 03/05/2019 08/31/2019 Active duloxetine 60 mg capsule,delayed release RxNorm: 689756 1 Capsu le(s) PO QD 01/28/2019 07/26/2019 Active Trelegy Ellipta 100 mcg-62.5 mcg-25 mcg powder for inhalatio n RxNorm: 4272895 1 Puff(s) INH QD 01/06/2019 12/31/2019 Active 90 day supply prednisone 20 mg tablet RxNorm: 277970 1 Tablet(s) PO T ID for 3 days then 1 po BID for 3 days then 1 po daily for 3 days 01/05/2019 03/28/2019 Inacti ve metformin ER 1,000 mg tablet,extended release 24hr RxNorm: 1 480856 TAKE TWO TABLETS (1000MG) BY MOUTH TWO TIMES A DAY 12/22/2018 03/28/2019 Inacti ve Diflucan 100 mg tablet RxNorm: 156099 1 Tablet(s) PO QD 12/09/2018 Inactive albuterol sulfate 2.5 mg/3 mL (0.083 %) solution for n ebulization RxNorm: 556806 3 Milliliter(s) INH ONE VIAL VIA NEBULIZER EVERY 4 HOURS 019 07/21/2019 Active [AttnRPh: Saving apply/adjudicate RxGRP: SG20 RxBIN:[id number] RxPCN: ID#:[id number]] prednisone 20 mg tablet RxNorm: 883244 1 Tablet(s) PO B ID for 4 days then 1 po daily for 4 days 11/24/2018 01/04/2019 Inactive Trelegy Ellipta 100 mcg-62.5 mcg-25 mcg powder for inhalatio n RxNorm: 5604217 1 Puff(s) INH QD 10/27/2018 01/06/2019 Inactive 90 day supply metoprolol succinate ER 100 mg tablet,extended release 24 hr RxNorm: 893929 TAKE ONE TABLET BY MOUTH TWICE A DAY 10/13/2018 07/09/2019 Active diltiazem ER 360 mg capsule,24 hr,extended release RxNorm: 8 90651 TAKE ONE CAPSULE BY MOUTH AT BEDTIME -REPLACES 300MG 10/13/2018 04/10/2019 Inactive Trelegy Ellipta 100 mcg-62.5 mcg-25 mcg powder for inhalatio n RxNorm: 8721277 INHALE ONE PUFF ONCE DAILY 09/07/2018 10/27/2018 Inactive Levaquin 750 mg tablet RxNorm: 901746 1 Tablet(s) PO QD 09/07/2018 Inactive Levaquin 750 mg tablet RxNorm: 633505 1 Tablet(s) PO QD 09/07/2018 Inactive prednisone 20 mg tablet RxNorm: 391329 2 Tablet(s) PO QAM 08/13/2018 08/19/2018 Inactive Levaquin 500 mg tablet RxNorm: 038192 1 Tablet(s) PO QD 08/11/2018 Inactive fenofibrate micronized 134 mg capsule RxNorm: 054973 TA KE ONE CAPSULE BY MOUTH EVERY DAY 08/10/2018 02/05/2019 Inactive prednisone 20 mg tablet RxNorm: 694677 1 Tablet(s) PO BID 07/16/2018 07/20/2018 Inactive doxycycline hyclate 100 mg capsule RxNorm: 5552732 1 Capsule(s) PO BID 07/13/2018 07/22/2018 Inactive duloxetine 60 mg capsule,delayed release RxNorm: 638227 TAKE ONE CAPSULE BY MOUTH ONCE A DAY 07/08/2018 01/28/2019 Inactive Lasix 40 mg tablet RxNorm: 658328 1 TABLET(S) PO QAM 06/08/201809/05 Inactive potassium chloride ER 20 mEq tablet,extended release(p art/cryst) RxNorm: 0016665 1 TABLET(S) PO QD 06/08/2018 09/05/2018 Inactive metformin ER 1,000 mg tablet,extended release 24hr RxNorm: 1 443041 TAKE TWO TABLETS (1000MG) BY MOUTH TWO TIMES A DAY 06/01/2018 11/27/2018 Inacti ve Benicar HCT 40 mg-25 mg tablet RxNorm: 995255 TAKE ONE TABLET BY MOUTH ONCE DAILY 05/11/2018 03/28/2019 Inactive Zocor 40 mg tablet RxNorm: 994105 TAKE ONE TABLET BY M OUTH EVERY NIGHT AT BEDTIME 05/11/2018 06/20/2019 Inactive Trelegy Ellipta 100 mcg-62.5 mcg-25 mcg powder for inhalatio n RxNorm: 9320168 1 PUFF(S) INH QD 04/06/2018 07/04/2018 Inactive diltiazem ER 360 mg capsule,24 hr,extended release RxNorm: 8 47429 1 Capsule(s) PO QHS replaces 300mg dose 03/30/2018 09/25/2018 Inactive Trelegy Ellipta 100 mcg-62.5 mcg-25 mcg powder for inhalatio n RxNorm: 6880582 1 Puff(s) INH QD 02/24/2018 02/23/2018 Inactive Trelegy Ellipta 100 mcg-62.5 mcg-25 mcg powder for inhalatio n RxNorm: 9224295 1 Puff(s) INH QD 02/24/2018 02/23/2018 Inactive Trelegy Ellipta 100 mcg-62.5 mcg-25 mcg powder for inhalatio n RxNorm: 2072175 1 Puff(s) INH QD 02/24/2018 04/05/2018 Inactive Lasix 40 mg tablet RxNorm: 713437 1 Tablet(s) PO QAM 02/10/201803/11 Inactive potassium chloride ER 20 mEq tablet,extended release(p art/cryst) RxNorm: 5084684 1 Tablet(s) PO QD 02/10/2018 03/11/2018 Inactive fenofibrate micronized 134 mg capsule RxNorm: 181537 1 Capsule( s) PO QD 01/30/2018 07/28/2018 Inactive metoprolol succinate ER 100 mg tablet,extended release 24 hr RxNorm: 654824 TAKE ONE TABLET BY MOUTH TWICE A DAY 12/30/2017 09/25/2018 Inactive metformin ER 1,000 mg tablet,extended release 24hr RxNorm: 1 567768 1 Tablet(s) PO BID 11/17/2017 05/15/2018 Inactive [SAVINGS FOR NON -COVERED DRUGS -- BIN:238613, PCN: ASPROD1, Group: XXXXX, ID# [id number], Questions: . THIS IS NOT INSURANCE.] Benicar HCT 40 mg-25 mg tablet RxNorm: 348213 1 Tablet(s) PO QD 05/10/2018 Inactive [SAVINGS FOR NON-COVERED JESU GS -- BIN:454120, PCN: ASPROD1, Group: XXXXX, ID# [id number], Questions: . THIS IS NOT INSURANCE.] Bactroban 2 % topical cream RxNorm: 408495 Application TOP BID 10/2409/02/2018 Inactive clindamycin HCl 300 mg capsule RxNorm: 690325 2 Capsule(s) PO TID 0 11/05/2017 11/18/2017 Inactive duloxetine 60 mg capsule,delayed release RxNorm: 461038 Capsule(s) TAKE ONE CAPSULE BY MOUTH ONCE DAILY 09/24/2017 09/23/2017 Inactive triamcinolone acetonide 0.1 % topical ointment RxNorm: 5584522 1 TOP BID 09/09/2017 11/04/2017 Inactive Bactrim DS 800 mg-160 mg tablet RxNorm: 909891 1 Tablet(s) PO BID 0 08/07/2017 08/13/2017 Inactive metronidazole 500 mg tablet RxNorm: 390609 1 Tablet(s) PO BID 08/0708/13/2017 Inactive diltiazem ER 360 mg capsule,24 hr,extended release RxNorm: 8 01792 1 Capsule(s) PO QHS replaces 300mg dose 08/04/2017 01/30/2018 Inactive fenofibrate micronized 134 mg capsule RxNorm: 751241 1 Capsule( s) PO QD 07/21/2017 01/30/2018 Inactive Zocor 40 mg tablet RxNorm: 287270 1 Tablet(s) PO QHS 07/21/201705/10 Inactive GB duloxetine 60 mg capsule,delayed release RxNorm: 838844 Capsule(s) TAKE ONE CAPSULE BY MOUTH ONCE DAILY 06/24/2017 09/24/2017 Inactive Cleocin HCl 300 mg capsule RxNorm: 936749 2 Capsule(s) PO BID 06/0206/08/2017 Inactive acyclovir 800 mg tablet RxNorm: 539252 1 Tablet(s) PO 5x day 201706/08/2017 Inactive diltiazem ER 300 mg capsule,24 hr,extended release RxNorm: 8 50740 1 Capsule(s) PO QHS replaces 240mg dose 05/05/2017 08/03/2017 Inactive ipratropium-albuterol 0.5 mg-3 mg(2.5 mg base)/3 mL ne bulization soln RxNorm: 6864840 1 Unit Dose INH Q4H as needed 05/05/2017 01/04/2019 Inactive metformin ER 1,000 mg tablet,extended release 24hr RxNorm: 1 652359 1 Tablet(s) PO BID 04/28/2017 11/17/2017 Inactive [SAVINGS FOR NON -COVERED DRUGS -- BIN:792893, PCN: ASPROD1, Group: XXXXX, ID# [id number], Questions: . THIS IS NOT INSURANCE.] diltiazem ER (XR/XT) 240 mg capsule,extended release 2 4 hr, controlled RxNorm: 524788 TAKE ONE CAPSULE BY MOUTH EVERY DAY 04/15/2017 05/04/2017 Inact avani prednisone 20 mg tablet RxNorm: 176572 1 Tablet(s) PO QD 04/10/2017 1 06/14/2016 Inactive Breo Ellipta 200 mcg-25 mcg/dose powder for inhalation RxNor m: 4902229 1 Puff(s) INH QD 04/10/2017 02/09/2018 Inactive Breo Ellipta 200 mcg-25 mcg/dose powder for inhalation RxNor m: 4257597 1 Puff(s) INH QD 04/10/2017 04/09/2017 Inactive Levaquin 500 mg tablet RxNorm: 435308 1 Tablet(s) PO QD 04/10/2017 Inactive metoprolol succinate ER 100 mg tablet,extended release 24 hr RxNorm: 646797 TAKE ONE TABLET BY MOUTH TWICE A DAY 03/24/2017 12/18/2017 Inactive fenofibrate micronized 134 mg capsule RxNorm: 066692 1 Capsule( s) PO QD 01/16/2017 07/21/2017 Inactive Benicar HCT 40 mg-25 mg tablet RxNorm: 359783 1 Tablet(s) PO QD 11/17/2017 Inactive [SAVINGS FOR NON-COVERED JESU GS -- BIN:457995, PCN: ASPROD1, Group: XXXXX, ID# [id number], Questions: . THIS IS NOT INSURANCE.] metoprolol succinate ER 100 mg tablet,extended release 24 hr RxNorm: 827316 1 Tablet(s) PO BID 10/16/2016 03/23/2017 Inactive diltiazem ER (XR/XT) 240 mg capsule,extended release 2 4 hr, controlled RxNorm: 628828 1 Capsule(s) PO QD 10/16/2016 04/13/2017 Inactive [SAVINGS FOR NON- COVERED DRUGS -- BIN:689253, PCN: ASPROD1, Group: XXXXX, ID# [id number], Questions: . THIS IS NOT INSURANCE.] metformin ER 1,000 mg tablet,extended release 24hr RxNorm: 8 31147 1 Tablet(s) PO BID 10/16/2016 04/28/2017 Inactive [SAVINGS FOR NON -COVERED DRUGS -- BIN:766856, PCN: ASPROD1, Group: XXXXX, ID# [id number], Questions: . THIS IS NOT INSURANCE.] Zocor 40 mg tablet RxNorm: 254922 1 Tablet(s) PO QHS 10/16/201607/21 Inactive GB Singulair 10 mg tablet RxNorm: 872751 Tablet(s) 1 TABLET(S) PO QHS 08/27/2016 09/02/2018 Inactive prednisone 20 mg tablet RxNorm: 651621 1 Tablet(s) PO QD 08/27/2016 0 08/31/2016 Inactive ipratropium-albuterol 0.5 mg-3 mg(2.5 mg base)/3 mL ne bulization soln RxNorm: 4639867 1 Unit Dose INH Q4H as needed 08/27/2016 05/04/2017 Inactive metoprolol succinate ER 100 mg tablet,extended release 24 hr RxNorm: 569869 TAKE ONE TABLET BY MOUTH TWICE A DAY 08/05/2016 10/16/2016 Inactive duloxetine 60 mg capsule,delayed release RxNorm: 916160 TAKE ONE CAPSULE BY MOUTH ONCE DAILY 08/05/2016 06/24/2017 Inactive prednisone 20 mg tablet RxNorm: 183035 1 Tablet(s) PO QD 06/14/2016 0 06/18/2016 Inactive ipratropium-albuterol 0.5 mg-3 mg(2.5 mg base)/3 mL ne bulization soln RxNorm: 2834785 1 Unit Dose INH Q4H as needed 06/13/2016 08/26/2016 Inactive Levaquin 500 mg tablet RxNorm: 281456 1 Tablet(s) PO QD 06/13/2016 Inactive metoprolol succinate ER 100 mg tablet,extended release 24 hr RxNorm: 884523 1 Tablet(s) PO BID replaces 50mg dose 05/14/2016 07/12/2016 Inactive metoprolol succinate ER 50 mg tablet,extended release 24 hr RxNorm: 350857 1 Tablet(s) PO BID 04/29/2016 05/13/2016 Inactive prednisone 20 mg tablet RxNorm: 004808 1 Tablet(s) PO BID 04/22/2016 04/21/2016 Inactive prednisone 20 mg tablet RxNorm: 197641 1 Tablet(s) PO BID 04/22/2016 04/28/2016 Inactive Singulair 10 mg tablet RxNorm: 403961 Tablet(s) 1 TABLET(S) PO QHS 04/01/2016 08/26/2016 Inactive metoprolol succinate ER 25 mg tablet,extended release 24 hr RxNorm: 282059 1 Tablet(s) PO QHS for blood pressure 04/01/2016 05/13/2016 Inactive fenofibrate micronized 134 mg capsule RxNorm: 569301 TA KE ONE CAPSULE BY MOUTH DAILY 01/25/2016 01/16/2017 Inactive duloxetine 60 mg capsule,delayed release RxNorm: 160531 TAKE ONE CAPSULE BY MOUTH ONCE DAILY 01/25/2016 08/04/2016 Inactive Zocor 40 mg tablet RxNorm: 142033 TAKE ONE TABLET BY MOUTH AT B EDTIME 11/13/2015 10/16/2016 Inactive GB metformin ER 1,000 mg tablet,extended release 24hr RxNorm: 8 44767 1 Tablet(s) PO BID 10/26/2015 10/16/2016 Inactive [SAVINGS FOR NON -COVERED DRUGS -- BIN:573074, PCN: ASPROD1, Group: XXXXX, ID# [id number], Questions: . THIS IS NOT INSURANCE.] Benicar HCT 40 mg-25 mg tablet RxNorm: 304965 1 Tablet(s) PO QD 06/201511/11/2016 Inactive [SAVINGS FOR NON-COVERED JESU GS -- BIN:822372, PCN: ASPROD1, Group: XXXXX, ID# [id number], Questions: . THIS IS NOT INSURANCE.] diltiazem ER (XR/XT) 240 mg capsule,extended release,control led RxNorm: 923392 1 Capsule(s) PO QD 10/26/2015 10/15/2016 Inactive [SAVINGS FOR NO N-COVERED DRUGS -- BIN:549559, PCN: ASPROD1, Group: XXXXX, ID# XXXXXXX, Questions: . THIS IS NOT INSURANCE.] Singulair 10 mg tablet RxNorm: 398024 1 TABLET(S) PO QHS 09/18/2015 1 05/31/2015 Inactive Viagra 100 mg tablet RxNorm: 864222 1 Tablet(s) PO as needed 201511/23/2018 Inactive Singulair 10 mg tablet RxNorm: 800279 1 Tablet(s) PO QHS 08/16/2015 0 08/15/2015 Inactive Singulair 10 mg tablet RxNorm: 476345 1 Tablet(s) PO QHS 08/16/2015 0 09/14/2015 Inactive duloxetine 60 mg capsule,delayed release RxNorm: 724662 1 Capsule(s) PO QD replaces fluoxetine 08/14/2015 01/24/2016 Inactive ipratropium-albuterol 0.5 mg-3 mg(2.5 mg base)/3 mL ne bulization soln RxNorm: 1959812 1 Unit Dose INH Q4H as needed 08/14/2015 06/12/2016 Inactive prednisone 20 mg tablet RxNorm: 873512 Take 3 tabs PO o nce daily x 3 days, then 2 tabs PO once daily x 3 days and then 1 tab PO once daily x 3 days 08/09/2015 08/13/2015 Inactive Symbicort 160 mcg-4.5 mcg/actuation HFA aerosol inhaler RxNo rm: 9429606 2 Puff(s) INH BID 08/09/2015 08/13/2015 Inactive Zocor 40 mg tablet RxNorm: 554097 1 Tablet(s) PO QHS 05/23/201511/11 Inactive [AttnRPh: Saving apply/adjudicate RxGRP: SG20 RxBIN:[id number] RxPCN: ID#:[id number]] Benicar HCT 40 mg-25 mg tablet RxNorm: 216168 1 Tablet(s) PO QD 10/26/2015 Inactive [SAVINGS FOR NON-COVERED JESU GS -- BIN:275900, PCN: ASPROD1, Group: XXXXX, ID# [id number], Questions: . THIS IS NOT INSURANCE.] diltiazem ER (XR/XT) 240 mg capsule,extended release,control led RxNorm: 921209 1 Capsule(s) PO QD 04/24/2015 10/20/2015 Inactive [SAVINGS FOR NO N-COVERED DRUGS -- BIN:148748, PCN: ASPROD1, Group: XXXXX, ID# XXXXXXX, Questions: . THIS IS NOT INSURANCE.] fluoxetine 40 mg capsule RxNorm: 530803 1 Capsule(s) PO QD 04/24/20 15 08/13/2015 Inactive [SAVINGS FOR NON-COVERED JESU GS -- BIN:183318, PCN: ASPROD1, Group: XXXXX, ID# [id number], Questions: . THIS IS NOT INSURANCE.] Zocor 40 mg tablet RxNorm: 806638 TABLET(S) 1 TABLET(S) PO QHS 01/2505/23/2015 Inactive [AttnRPh: Saving apply/adjud icate RxGRP:SG20 RxBIN:[id number] RxPCN:HT ID#:[id number]] metformin ER 1,000 mg tablet,extended release 24hr RxNorm: 8 24972 1 TABLET(S) PO BID 01/29/2015 10/26/2015 Inactive [SAVINGS FOR NON -COVERED DRUGS -- BIN:136004, PCN: ASPROD1, Group: XXXXX, ID# XXXXXXX, Questions: . THIS IS NOT INSURANCE.] fenofibrate micronized 134 mg capsule RxNorm: 413829 1 CAPSULE( S) PO QD 01/23/2015 01/17/2016 Inactive fenofibrate micronized 134 mg capsule RxNorm: 229680 1 Capsule( s) PO QD 11/07/2014 01/22/2015 Inactive diltiazem ER (XR/XT) 240 mg capsule,extended release,control led RxNorm: 047531 1 Capsule(s) PO QD 10/24/2014 04/24/2015 Inactive [SAVINGS FOR NO N-COVERED DRUGS -- BIN:402743, PCN: ASPROD1, Group: XXXXX, ID# XXXXXXX, Questions: . THIS IS NOT INSURANCE.] Benicar HCT 40 mg-25 mg tablet RxNorm: 092446 1 Tablet(s) PO QD 05/201404/24/2015 Inactive [SAVINGS FOR NON-COVERED JESU GS -- BIN:324006, PCN: ASPROD1, Group: XXXXX, ID# [id number], Questions: . THIS IS NOT INSURANCE.] fluoxetine 40 mg capsule RxNorm: 119170 1 Capsule(s) PO QD 10/25/1904/24/2015 Inactive [SAVINGS FOR NON-COVERED JESU GS -- BIN:717033, PCN: ASPROD1, Group: XXXXX, ID# XXXXXXX, Questions: . THIS IS NOT INSURANCE.] azithromycin 500 mg tablet RxNorm: 311777 1 Tablet(s) PO QD 015 09/27/2014 Inactive [SAVINGS FOR NON-COVERED JESU GS -- BIN:064072, PCN: ASPROD1, Group: XXXXX, ID# XXXXXXX, Questions: . THIS IS NOT INSURANCE.] albuterol sulfate 2.5 mg/3 mL (0.083 %) solution for n ebulization RxNorm: 256303 3 Milliliter(s) INH ONE VIAL VIA NEBULIZER EVERY 4 HOURS 015 11/19/2014 Inactive [AttnRPh: Saving apply/adjudicate RxGRP: SG20 RxBIN:[id number] RxPCN: ID#:[id number]] Zocor 40 mg tablet RxNorm: 693299 TABLET(S) 1 TABLET(S ) PO QHS 1 TABLET(S) PO QHS 09/04/2014 02/21/2015 Inactive [AttnRPh: Saving apply/adjudicate RxGRP:SG20 RxBIN:[id number] RxPCN: ID#:[id number]] metformin ER 1,000 mg tablet,extended release 24hr RxNorm: 8 58474 1 Tablet(s) PO BID 08/04/2014 01/28/2015 Inactive [SAVINGS FOR NON -COVERED DRUGS -- BIN:978443, PCN: ASPROD1, Group: XXXXX, ID# XXXXXXX, Questions: . THIS IS NOT INSURANCE.] Bromfed DM 2 mg-30 mg-10 mg/5 mL syrup RxNorm: 5308943 1 -2 Teaspoon(s) PO Q4H as needed for cough 06/10/2014 06/19/2014 Inactive [SAVINGS FOR UN INSURED PATIENTS -- BIN:271847, PCN: ASPROD1, Group: AME08, ID# [id number], Process claim through [employer], for questions: . THIS IS NOT INSURANCE.] Augmentin 875 mg-125 mg tablet RxNorm: 157143 1 Tablet(s) PO Q12H 0 06/10/2014 06/19/2014 Inactive [AttnRPh: Saving apply/adjud icate RxGRP:SG20 RxBIN:[id number] RxPCN:HT ID#:[id number]] Zocor 40 mg tablet RxNorm: 620346 Tablet(s) 1 TABLET(S ) PO QHS 1 TABLET(S) PO QHS 05/25/2014 08/22/2014 Inactive [AttnRPh: Saving apply/adjudicate RxGRP:SG20 RxBIN:[id number] RxPCN:HT ID#:[id number]] fluoxetine 40 mg capsule RxNorm: 707714 1 Capsule(s) PO QD 04/29/20 14 10/24/2014 Inactive [AttnRPh: Saving apply/adjud icate RxGRP:SG20 RxBIN:[id number] RxPCN:HT ID#:[id number]] diltiazem ER (XR/XT) 240 mg capsule,extended release,control led RxNorm: 965735 1 Capsule(s) PO QD 04/29/2014 10/24/2014 Inactive [AttnRPh: Savin g apply/adjudicate RxGRP:SG20 RxBIN:[id number] RxPCN:HT ID#:[id number]] Benicar HCT 40 mg-25 mg tablet RxNorm: 336916 1 Tablet(s) PO QD 09/201310/24/2014 Inactive [AttnRPh: Saving apply/adjud icate RxGRP:SG20 RxBIN:[id number] RxPCN:HT ID#:[id number]] Zocor 40 mg tablet RxNorm: 393680 1 TABLET(S) PO QHS 1 TABLET(S ) PO QHS 03/07/2014 05/25/2014 Inactive [AttnRPh: Saving chelsie ly/adjudicate RxGRP:SG20 RxBIN:[id number] RxPCN:HT ID#:[id number]] Zocor 40 mg tablet RxNorm: 404638 1 Tablet(s) PO QHS 1 TABLET(S ) PO QHS 12/06/2013 03/05/2014 Inactive [AttnRPh: Saving chelsie ly/adjudicate RxGRP:SG20 RxBIN:[id number] RxPCN:HT ID#:[id number]] diltiazem ER (XR/XT) 240 mg capsule,extended release,control led RxNorm: 634439 1 Capsule(s) PO QD 10/25/2013 04/22/2014 Inactive [AttnRPh: Savin g apply/adjudicate RxGRP:SG20 RxBIN:[id number] RxPCN:HT ID#:[id number]] fluoxetine 40 mg capsule RxNorm: 388089 1 Capsule(s) PO QD 10/26/19 14 04/22/2014 Inactive [AttnRPh: Saving apply/adjud icate RxGRP:SG20 RxBIN:[id number] RxPCN:HT ID#:[id number]] Zocor 40 mg tablet RxNorm: 296688 1 Tablet(s) PO QHS 1 TABLET(S ) PO QHS 09/13/2013 12/06/2013 Inactive metformin ER 1,000 mg tablet,extended release 24hr RxNorm: 8 76954 Tablet(s) PO TAKE 1 TABLET BY MOUTH TWICE DAILY (REPLACES 500MG DOSE) 07/26/201303/2015 Inactive diltiazem ER (XR/XT) 240 mg capsule,extended release,control led RxNorm: 914577 1 Capsule(s) PO QD 05/03/2013 10/25/2013 Inactive fluoxetine 40 mg capsule RxNorm: 866902 1 Capsule(s) PO QD 05/03/20 13 10/25/2013 Inactive Benicar HCT 40 mg-25 mg tablet RxNorm: 431646 1 Tablet(s) PO QD 01/201304/29/2014 Inactive Zocor 40 mg tablet RxNorm: 567115 1 Tablet(s) PO QHS 12/10/201209/13 Inactive fluoxetine 40 mg capsule RxNorm: 703700 1 Capsule(s) PO QD 11/10/19 13 05/03/2013 Inactive diltiazem ER (XR/XT) 240 mg capsule,extended release,control led RxNorm: 047963 1 Capsule(s) PO QD 11/09/2012 05/03/2013 Inactive Benicar HCT 40 mg-25 mg tablet RxNorm: 986437 1 Tablet(s) PO QD 05/03/2013 Inactive metformin ER 1,000 mg tablet,extended release 24hr RxNorm: 8 82218 Tablet(s) PO TAKE 1 TABLET BY MOUTH TWICE DAILY (REPLACES 500MG DOSE) 08/05/201206/2013 Inactive Zocor 40 mg tablet RxNorm: 416005 1 Tablet(s) PO QHS 06/15/201212/09 Inactive fluoxetine 40 mg capsule RxNorm: 768307 1 Capsule(s) PO QD 05/15/20 12 11/08/2012 Inactive Neurontin 600 mg Tab RxNorm: 782475 1 Tablet(s) PO QHS 12/03/2011 Inactive metformin ER 1,000 mg tablet,extended release 24hr RxNorm: 8 36269 1 Tablet(s) PO BID replaces 500mg dose 12/03/2011 07/26/2013 Inactive Zocor 40 mg tablet RxNorm: 192822 1 Tablet(s) PO QHS 12/03/201106/15 Inactive fluoxetine 20 mg capsule RxNorm: 125839 1 Capsule(s) PO QD 12/03/19 12 05/24/2012 Inactive diltiazem ER (XR/XT) 240 mg capsule,extended release,control led RxNorm: 548648 1 Capsule(s) PO QD 11/15/2011 11/09/2012 Inactive Benicar HCT 40 mg-25 mg tablet RxNorm: 413981 1 Tablet(s) PO QD 02/16/2012 Inactive metformin ER 500 mg 24 hr Tab RxNorm: 895282 1 Tablet(s) PO BID 12/02/2011 Inactive Zocor 40 mg Tab RxNorm: 549047 1 Tablet(s) PO QHS 05/30/2011 11/25/19 12 Inactive fluoxetine 20 mg Cap RxNorm: 474953 1 Capsule(s) PO QD 05/28/2011 Inactive Neurontin 600 mg Tab RxNorm: 444023 1 Tablet(s) PO QHS 05/28/2011 Inactive Neurontin 600 mg Tab RxNorm: 724755 1 Tablet(s) PO QHS 02/22/201106/2011 Inactive Neurontin 600 mg Tab RxNorm: 107985 1 Tablet(s) PO QHS 01/14/2011 Inactive Neurontin 300 mg Cap RxNorm: 569986 1 Capsule(s) PO QHS 01/14/2011 Inactive Neurontin 600 mg Tab RxNorm: 654656 1 Tablet(s) PO QHS 01/14/2011 Inactive Medrol (Vipul) 4 mg Tabs in a Dose Pack RxNorm: 548409 Tablet(s) PO 0 01/02/2011 08/28/2011 Inactive as directed fluoxetine 20 mg Cap RxNorm: 602537 1 Capsule(s) PO QD 12/10/201006/2011 Inactive Zocor 40 mg Tab RxNorm: 166120 1 Tablet(s) PO QHS 12/03/2010 05/29/19 12 Inactive Neurontin 300 mg Cap RxNorm: 109756 1 Capsule(s) PO QHS 12/03/2010 Inactive Septra DS 800 mg-160 mg Tab RxNorm: 762890 1 Tablet(s) PO BID 11/2912/08/2010 Inactive diltiazem ER (XR/XT) 240 mg Continuous Release Cap RxNorm: 8 61413 1 Capsule(s) PO QD 11/20/2010 11/15/2011 Inactive Neurontin 300 mg Cap RxNorm: 096674 1 Capsule(s) PO QHS 11/06/2010 Inactive Neurontin 300 mg Cap RxNorm: 182664 1 Capsule(s) PO QHS 11/06/2010 Inactive Celebrex 200 mg Cap RxNorm: 909263 1 Capsule(s) PO BID 10/24/2010 Inactive fluoxetine 20 mg Cap RxNorm: 167276 1 Capsule(s) PO QD 06/07/201003/2011 Inactive Zocor 40 mg Tab RxNorm: 454400 1 Tablet(s) PO QHS 06/05/2010 12/02/19 11 Inactive Benicar HCT 40 mg-25 mg Tab RxNorm: 621116 1 Tablet(s) PO QD 200908/21/2011 Inactive Diltiazem 240 mg Continuous Release Cap RxNorm: 678249 1 Capsul e(s) PO QD 11/09/2009 09/02/2018 Inactive Avelox 400 mg Tab RxNorm: 436150 1 Tablet(s) PO QD 08/22/2009 010 Inactive ProAir HFA 90 mcg/actuation aerosol inhaler RxNorm: 882323 2 Puff(s) INH Q4H as needed No Start Date Active tramadol 50 mg tablet RxNorm: 051678 1-2 Tablet(s) PO TID as ne eded for pain No Start Date Active Tylenol Arthritis 650 mg Tab RxNorm: 5073850 2 Tablet(s) PO QD No Sta rt Date Active Celebrex 200 mg Cap RxNorm: 218898 1 Capsule(s) PO BID No Start Date 08/08/2015 Inactive Medrol (Vipul) 4 mg Tabs in a Dose Pack RxNorm: 328288 Tablet(s) PO N o Start Date 01/01/2011 Inactive as directed Promethazine-DM 6.25 mg-15 mg/5 mL Syrup RxNorm: 412526 1-2 Teaspoon(s) PO Q4H prn cough No Start Date 08/28/2011 Inactive Claritin 10 mg tablet RxNorm: 215569 1 Tablet(s) PO QD No Start Date 08/08/2015 Inactive [id number] Oral RxNorm: Oral No Start Da te 03/28/2019 Inactive Breo Ellipta 200 mcg-25 mcg/dose powder for inhalation RxNor m: 0496897 1 Puff(s) INH QD No Start Date 04/09/2017 Inactive metformin 500 mg Tab RxNorm: 565802 1 Tablet(s) PO QD No Start Date 0 08/17/2011 Inactive Diltiazem 240 mg Continuous Release Cap RxNorm: 264584 1 Capsul e(s) PO BID No Start Date 11/08/2009 Inactive fluoxetine 20 mg Cap RxNorm: 467657 1 Capsule(s) PO QD No Start Date 06/07/2010 Inactive Multivitamin & Mineral Formula Oral RxNorm: Oral No Start Da te 03/28/2019 Inactive Medrol (Vipul) 4 mg tablets in a dose pack RxNorm: 986634 Tablet(s) PO as directed No Start Date 05/28/2012 Inactive Fish Oil 1,000 mg Cap RxNorm: 1 Capsule(s) PO QD No Start Date 07/2018 Inactive Nexium 40 mg Cap RxNorm: 421686 1 Capsule(s) PO QD No Start Date 07/24 Inactive fluticasone 50 mcg/actuation nasal spray,suspension RxNorm: 7394301 2 [place] NASAL QD to each nostril No Start Date 08/03/2017 Inactive Viagra 100 mg tablet RxNorm: 307499 1 Tablet(s) PO as needed No Sta rt Date 09/17/2015 Inactive prednisone 20 mg tablet RxNorm: 756921 1 Tablet(s) PO B ID for 4 days then 1 po daily for 4 days No Start Date 11/23/2018 Inactive Benicar HCT 40 mg-25 mg Tab RxNorm: 347002 1 Tablet(s) PO QD No Sta rt [...] Date S ervice Location MICROALBUMIN URINE RANDOM 72519 MICRL MG/L 5.8 MG/L 03/2011 Unknown MICROALBUMIN URINE RANDOM 95341 XM.ALB/CRE 5.2 MG/GCR Unknown MICROALBUMIN URINE RANDOM 42262 CREAT MG/D 111 MG/DL 03/2011 Unknown MICROALBUMIN URINE RANDOM 47656 CRE/100 1.11 G/L 12/24 Unknown Procedures Procedure Codes Date FLU VACC PRSV FREE INC ANTIG 65 AND OLDER CPT-4: 88090 03/04/2019 ADMIN PNEUMOCOCCAL VACCINE CPT-4: G0009 03/04/2019 ADMIN INFLUENZA VIRUS VAC CPT-4: G0008 03/04/2019 FLU VACC PRSV FREE INC ANTIG 65 AND OLDER CPT-4: 73347 03/04/2019 PNEUMOCOCCAL VACC 23 [facility] IM CPT-4: 73239 03/04/2019 THER/PROPH/DIAG INJ SC/IM CPT-4: 93321 08/11/2018 TRIAMCINOLONE ACET INJ NOS CPT-4: J3301 08/11/2018 DEXAMETHASONE SODIUM PHOS CPT-4: J1100 08/11/2018 THER/PROPH/DIAG INJ SC/IM CPT-4: 47536 07/16/2018 METHYLPREDNISOLONE INJECTION CPT-4: J2930 07/16/2018 INFLUENZA ASSAY W/OPTIC CPT-4: 30685 07/16/2018 THER/PROPH/DIAG INJ SC/IM CPT-4: 20954 07/13/2018 TRIAMCINOLONE ACET INJ NOS CPT-4: J3301 07/13/2018 THER/PROPH/DIAG INJ SC/IM CPT-4: 40473 05/04/2018 METHYLPREDNISOLONE INJECTION CPT-4: J2930 05/04/2018 FLU VACC PRSV FREE INC ANTIG 65 AND OLDER CPT-4: 66533 02/10/2018 PNEUMOCOCCAL VACC 13 [facility] IM CPT-4: 58069 02/10/2018 ADMIN INFLUENZA VIRUS VAC CPT-4: G0008 02/10/2018 ADMIN PNEUMOCOCCAL VACCINE CPT-4: G0009 02/10/2018 THER/PROPH/DIAG INJ SC/IM CPT-4: 16737 09/09/2017 TRIAMCINOLONE ACET INJ NOS CPT-4: J3301 09/09/2017 ALBUTEROL NON-COMP UNIT CPT-4: J7613 04/10/2017 AIRWAY INHALATION TREATMENT CPT-4: 69659 04/10/2017 PRESCRIP TRANSMIT VIA ERX SY CPT-4: G8553 04/10/2017 FLU VACC PRSV FREE INC ANTIG 65 AND OLDER CPT-4: 59726 03/28/2017 ADMIN INFLUENZA VIRUS VAC CPT-4: G0008 03/28/2017 PRESCRIP TRANSMIT VIA ERX SY CPT-4: G8553 08/27/2016 PRESCRIP TRANSMIT VIA ERX SY CPT-4: G8553 06/14/2016 ALBUTEROL NON-COMP UNIT CPT-4: J7613 06/13/2016 AIRWAY INHALATION TREATMENT CPT-4: 64609 06/13/2016 PRESCRIP TRANSMIT VIA ERX SY CPT-4: [...] CPT-4: G8553 11/07/2014 THER/PROPH/DIAG INJ SC/IM CPT-4: 44109 09/21/2014 METHYLPREDNISOLONE INJECTION CPT-4: J2930 09/21/2014 PRESCRIP TRANSMIT VIA ERX SY CPT-4: G8553 09/21/2014 PRESCRIP TRANSMIT VIA ERX SY CPT-4: G8553 06/10/2014 URINALYSIS NONAUTO W/O SCOPE CPT-4: 95007 06/01/2012 PRESCRIP TRANSMIT VIA ERX SY CPT-4: G8553 05/25/2012 PRESCRIP TRANSMIT VIA ERX SY CPT-4: G8553 12/03/2011 CUR TOBACCO NON-USER CPT-4: G8457 05/30/2011 PRESCRIP TRANSMIT VIA ERX SY CPT-4: G8553 05/30/2011 URINALYSIS NONAUTO W/O SCOPE CPT-4: 25349 01/01/2011 URINE CULTURE/ COLONY COUNT CPT-4: 26849 01/01/2011 CUR TOBACCO NON-USER CPT-4: G8457 01/01/2011 [...] 1: 114/68 Code: 8480-6 BMI: 43.5 Code: 01733-1 Heart Rate 1: 52 bpm Height: 6'1" [...] 1: 136/72 Code: 8480-6 BMI: 42.7 Code: 67299-4 Heart Rate 1: 60 bpm Height: 6'1" Respiratory Rate: 22 bpm SpO2: 95% Tempera ture: 37.1 (C) / 98.7 (F) Weight: 324 lbs 02/10/2018 Blood Pressure 1: 146/78 Code: 8480-6 BMI: 42.4 Code: 14661-3 Heart Rate 1: 64 bpm Height: 6'1" Respiratory Rate: 22 bpm SpO2: 95% Tempera ture: 36.5 (C) / 97.7 (F) Weight: 321 lbs 11/05/2017 Blood Pressure 1: 128/84 Code: 8480-6 BMI: 42.9 Code: 63445-2 Heart Rate 1: 52 bpm Height: 6'1" Respiratory Rate: 22 bpm SpO2: 95% Tempera ture: 36.3 (C) / 97.3 (F) Weight: 325 lbs 09/09/2017 Blood Pressure 1: 162/90 Code: 8480-6 BMI: 42.5 Code: 93644-6 Heart Rate 1: 60 bpm Height: 6'1" Respiratory Rate: 24 bpm SpO2: 95% Tempera ture: 36.4 (C) / 97.6 (F) Weight: 322 lbs 08/07/2017 Blood Pressure 1: 152/90 Code: 8480-6 BMI: 42.2 Code: 77962-6 Heart Rate 1: 60 bpm Height: 6'1" Respiratory Rate: 26 bpm SpO2: 94% Tempera ture: 36.6 (C) / 97.8 (F) Weight: 320 lbs 08/04/2017 Blood Pressure 1: 150/86 Code: 8480-6 BMI: 42.7 Code: 25127-5 Heart Rate 1: 64 bpm Height: 6'1" Respiratory Rate: 20 bpm SpO2: 94% Tempera ture: 36.3 (C) / 97.3 (F) Weight: 324 lbs 06/04/2017 Blood Pressure 1: 164/90 Code: 8480-6 Heart Rate 1: 60 bpm Respiratory Rate: 24 bpm SpO2: 94% Temperature: 36.8 (C) / 98.3 (F) 06/02/2017 Blood Pressure 1: 162/80 Code: 8480-6 BMI: 42.9 Code: 48131-7 Heart Rate 1: 66 bpm Height: 6'1" Respiratory Rate: 22 bpm SpO2: 98% Tempera ture: 36.6 (C) / 97.8 (F) Weight: 325 lbs 05/05/2017 Blood Pressure 1: 164/94 Code: 8480-6 BMI: 41.4 Code: 88704-2 Heart Rate 1: 64 bpm Height: 6'1" Respiratory Rate: 22 bpm SpO2: 95% Tempera ture: 36.4 (C) / 97.5 (F) Weight: 314 lbs 04/10/2017 Blood Pressure 1: 136/78 Code: 8480-6 BMI: 42.0 Code: 81057-6 Heart Rate 1: 76 bpm Height: 6'1" Respiratory Rate: 24 bpm SpO2: 92% Tempera ture: 35.9 (C) / 96.7 (F) Weight: 318 lbs 02/03/2017 Blood Pressure 1: 134/82 Code: 8480-6 BMI: 41.7 Code: 60103-3 Heart Rate 1: 72 bpm Height: 6'1" Respiratory Rate: 24 bpm SpO2: 95% Tempera ture: 36.1 (C) / 97.0 (F) Weight: 316 lbs 10/30/2016 Blood Pressure 1: 126/74 Code: 8480-6 BMI: 41.3 Code: 67221-0 Heart Rate 1: 68 bpm Height: 6'1" Respiratory Rate: 20 bpm Temperature: 37 .1 (C) / 98.8 (F) Weight: 313 lbs 08/30/2016 Blood Pressure 1: 146/80 Code: 8480-6 BMI: 41.7 Code: 78133-1 Heart Rate 1: 64 bpm Height: 6'1" Respiratory Rate: 24 bpm SpO2: 94% Tempera ture: 36.6 (C) / 97.8 (F) Weight: 316 lbs 08/27/2016 Blood Pressure 1: 124 Code: 8480-6 Heart Rate 1: 66 bpm Height: 6'2" Respiratory Rate: 18 bpm SpO2: 94% Temperature: 36.6 (C) / 97.8 (F) Weight: 07/02/2016 Blood Pressure 1: 12678 Code: 8480-6 BMI: 41.4 Code: 21815-5 Heart Rate 1: 68 bpm Height: 6'1" Respiratory Rate: 24 bpm SpO2: 94% Tempera ture: 36.6 (C) / 97.8 (F) Weight: 314 lbs 06/14/2016 Blood Pressure 1: 14682 Code: 8480-6 Heart Rate 1: 80 bpm Respiratory Rate: 20 bpm SpO2: 95% Temperature: 37.3 (C) / 99.2 (F) 06/13/2016 Blood Pressure 1: 146/84 Code: 8480-6 BMI: 40.5 Code: 00844-0 Heart Rate 1: 66 bpm Height: 6'1" Respiratory Rate: 28 bpm SpO2: 93% Tempera ture: 35.8 (C) / 96.4 (F) Weight: 307 lbs 05/14/2016 Blood Pressure 1: 146/90 Code: 8480-6 BMI: 41.2 Code: 88502-7 Heart Rate 1: 68 bpm Height: 6'1" Respiratory Rate: 26 bpm Temperature: 36 .8 (C) / 98.2 (F) Weight: 312 lbs 04/29/2016 Blood Pressure 1: 152/90 Code: 8480-6 BMI: 41.0 Code: 78130-2 Heart Rate 1: 68 bpm Height: 6'1" Respiratory Rate: 26 bpm SpO2: 94% Tempera ture: 36.1 (C) / 96.9 (F) Weight: 311 lbs 04/22/2016 Blood Pressure 1: 152/94 Code: 8480-6 BMI: 40.9 Code: 38266-5 Heart Rate 1: 68 bpm Height: 6'1" Respiratory Rate: 24 bpm SpO2: 94% Tempera ture: 36.2 (C) / 97.2 (F) Weight: 310 lbs 04/01/2016 Blood Pressure 1: 156/78 Code: 8480-6 BMI: 40.6 Code: 97334-6 Heart Rate 1: 84 bpm Height: 6'1" Respiratory Rate: 22 bpm SpO2: 95% Tempera ture: 37.1 (C) / 98.7 (F) Weight: 308 lbs 11/30/2015 Blood Pressure 1: 142/80 Code: 8480-6 BMI: 40.5 Code: 82777-7 Heart Rate 1: 88 bpm Height: 6'1" Respiratory Rate: 22 bpm Temperature: 36 .2 (C) / 97.2 (F) Weight: 307 lbs 08/29/2015 Blood Pressure 1: 132/70 Code: 8480-6 BMI: 40.0 Code: 68494-9 Heart Rate 1: 76 bpm Height: 6'1" Respiratory Rate: 24 bpm SpO2: 96% Tempera ture: 36.7 (C) / 98.0 (F) Weight: 303 lbs 08/14/2015 Blood Pressure 1: 126/80 Code: 8480-6 BMI: 39.4 Code: 61008-8 Heart Rate 1: 92 bpm Height: 6'1" Respiratory Rate: 24 bpm SpO2: 94% Tempera ture: 37.8 (C) / 100.0 (F) Weight: 299 lbs 08/09/2015 Blood Pressure 1: 146/82 Code: 8480-6 Heart Rate 1: 82 bpm Respiratory Rate: 22 bpm SpO2: 93% Temperature: 35.9 (C) / 96.6 (F) We ight: 310 lbs 05/22/2015 Blood Pressure 1: 156/76 Code: 8480-6 BMI: 41.0 Code: 35451-0 Heart Rate 1: 100 bpm Height: 6'1" Respiratory Rate: 22 bpm Temperature: 37 .2 (C) / 98.9 (F) Weight: 311 lbs 02/13/2015 Blood Pressure 1: 166/90 Code: 8480-6 BMI: 41.2 Code: 48397-5 Heart Rate 1: 72 bpm Height: 6'1" Respiratory Rate: 24 bpm SpO2: 93% Tempera ture: 36.9 (C) / 98.5 (F) Weight: 312 lbs 11/07/2014 Blood Pressure 1: 134/70 Code: 8480-6 BMI: 40.5 Code: 34514-6 Heart Rate 1: 76 bpm Height: 6'1" Respiratory Rate: 24 bpm Temperature: 36 .9 (C) / 98.4 (F) Weight: 307 lbs 10/04/2014 Blood Pressure 1: 144/86 Code: 8480-6 BMI: 40.1 Code: 16146-4 Heart Rate 1: 76 bpm Height: 6'1" Respiratory Rate: 28 bpm Temperature: 36 .6 (C) / 97.9 (F) Weight: 304 lbs 09/22/2014 Blood Pressure 1: 142/80 Code: 8480-6 BMI: 40.0 Code: 17287-2 Heart Rate 1: 80 bpm Height: 6'1" Respiratory Rate: 22 bpm SpO2: 96% Tempera ture: 36.6 (C) / 97.8 (F) Weight: 303 lbs 09/21/2014 Blood Pressure 1: 160/66 Code: 8480-6 BMI: 40.0 Code: 24653-6 Heart Rate 1: 90 bpm Height: 6'1" Respiratory Rate: 26 bpm SpO2: 94% Tempera ture: 35.7 (C) / 96.2 (F) Weight: 303 lbs 06/28/2014 Blood Pressure 1: 132/80 Code: 8480-6 BMI: 41.0 Code: 32287-2 Heart Rate 1: 64 bpm Height: 6' Respiratory Rate: 20 bpm Temperature: 36 .7 (C) / 98.0 (F) Weight: 302 lbs 06/10/2014 Blood Pressure 1: 152/70 Code: 8480-6 BMI: 41.1 Code: 24450-0 Heart Rate 1: 76 bpm Height: 6' Respiratory Rate: 20 bpm Temperature: 36 .6 (C) / 97.8 (F) Weight: 303 lbs 03/29/2014 Blood Pressure 1: 132/78 Code: 8480-6 BMI: 40.6 Code: 33877-9 Heart Rate 1: 84 bpm Height: 6' Respiratory Rate: 22 bpm Temperature: 37 .1 (C) / 98.8 (F) Weight: 299 lbs 11/30/2013 Blood Pressure 1: 136/84 Code: 8480-6 BMI: 39.2 Code: 17184-3 Heart Rate 1: 76 bpm Height: 6' Respiratory Rate: 20 bpm Temperature: 36 .8 (C) / 98.2 (F) Weight: 289 lbs 08/03/2013 Blood Pressure 1: 144/80 Code: 8480-6 Heart Rate 1: 86 bpm Respiratory Rate: 20 bpm Temperature: 36.6 (C) / 97.8 (F) Weight: 296 lbs 04/06/2013 Blood Pressure 1: 142/90 Code: 8480-6 BMI: 40.3 Code: 17744-5 Heart Rate 1: 88 bpm Height: 6' Respiratory Rate: 20 bpm Temperature: 36 .6 (C) / 97.8 (F) Weight: 297 lbs 12/01/2012 Blood Pressure 1: 124/78 Code: 8480-6 BMI: 38.7 Code: 42179-2 Heart Rate 1: 76 bpm Height: 6' Respiratory Rate: 20 bpm Temperature: 37 .2 (C) / 98.9 (F) Weight: 285 lbs 08/04/2012 Blood Pressure 1: 128/80 Code: 8480-6 BMI: 38.2 Code: 00232-7 Heart Rate 1: 76 bpm Height: 6' Respiratory Rate: 20 bpm Temperature: 37 .0 (C) / 98.6 (F) Weight: 282 lbs 05/29/2012 Blood Pressure 1: 138/78 Code: 8480-6 BMI: 36.6 Code: 05820-7 Heart Rate 1: 66 bpm Height: 6' Temperature: 36.7 (C) / 98.1 (F) Weight: 270 lbs 05/25/2012 Blood Pressure 1: 128/72 Code: 8480-6 BMI: 39.9 Code: 92077-3 Heart Rate 1: 74 bpm Height: 6' Temperature: 36.1 (C) / 97.0 (F) Weight: 294 lbs 04/07/2012 Blood Pressure 1: 124/76 Code: 8480-6 BMI: 39.9 Code: 36210-5 Heart Rate 1: 72 bpm Height: 6' Respiratory Rate: 20 bpm Temperature: 36 .9 (C) / 98.5 (F) Weight: 294 lbs 12/16/2011 Blood Pressure 1: 128/80 Code: 8480-6 BMI: 40.8 Code: 02671-6 Heart Rate 1: 74 bpm Height: 6' Temperature: 36.6 (C) / 97.8 (F) Weight: 301 lbs 12/03/2011 Blood Pressure 1: 132/76 Code: 8480-6 BMI: 40.8 Code: 75988-4 Heart Rate 1: 68 bpm Height: 6' Respiratory Rate: 20 bpm Temperature: 36 .8 (C) / 98.2 (F) Weight: 301 lbs 08/29/2011 Blood Pressure 1: 140/68 Code: 8480-6 BMI: 40.8 Code: 45092-3 Heart Rate 1: 80 bpm Height: 6' Respiratory Rate: 20 bpm Temperature: 36 .4 (C) / 97.6 (F) Weight: 301 lbs 05/30/2011 Blood Pressure 1: 134/82 Code: 8480-6 BMI: 41.5 Code: 36554-0 Heart Rate 1: 76 bpm Height: 6' [...] 1: 126/72 Code: 8480-6 BMI: 41.2 Code: 52064-4 Heart Rate 1: 76 bpm Height: 6' [...] 1: 152/90 Code: 8480-6 BMI: 37.7 Code: 00770-5 Heart Rate 1: 92 bpm Height: 6'1" [...] dm Encounters Encounter Performer Location Codes Date ([id number]) OFFICE/OUTPATIENT VISIT EST Diagnosis: Advanced chronic obstructive pulmonary disease[ICD10: J44.9] 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] Neela GERONIMO CPT-4: 25380 05/10/2019 ([id number]) OFFICE/OUTPATIENT VISIT EST Diagnosis: Chronic obstructive pulmonary disease with (acute) exacerbation[ICD10: J44.1] Diagnosis: Hypokalemia[ICD10: E87.6] 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] Neela HYMAN [facility] CPT-4: 70357 03/29/2019 ([id number]) NURSE/OUTPATIENT VISIT EST Diagnosis: PNEUMOCOCCAL VACCINE[ICD10: Z23] Neela HYMAN DO [facility] CPT-4: 01366 03/04/2019 ([id number]) OFFICE/OUTPATIENT VISIT EST Diagnosis: Chronic obstructive pulmonary disease with (acute) exacerbation[ICD10: J44.1] Diagnosis: Other nonspecific abnormal finding of lung field[ICD10: R91.8] Neela HYMAN DO [facility] CPT-4: 06156 01/05/2019 ([id number]) OFFICE/OUTPATIENT VISIT EST Diagnosis: Solitary pulmonary nodule[ICD10: R91.1] 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] Diagnosis: Tinea corporis[ICD10: B35.4] Neela HYMAN DO [facility] CPT-4: 88231 12/09/2018 ([id number]) OFFICE/OUTPATIENT VISIT EST Diagnosis: COUGH[ICD10: R05] Diagnosis: Chronic obstructive pulmonary disease, unspecified[ICD10: J44.9] Diagnosis: Other disorders of lung[ICD10: J98.4] Diagnosis: Other nonspecific abnormal finding of lung field[ICD10: R91.8] Neela HYMAN [facility] CPT-4: 52837 11/24/2018 ([id number]) OFFICE/OUTPATIENT VISIT EST Diagnosis: Pneumonia, unspecified organism[ICD10: J18.9] Amita Henderson NEELA HYMAN DO [facility] CPT-4: 88179 09/16/2018 ([id number]) OFFICE/OUTPATIENT VISIT EST Diagnosis: Pneumonia, unspecified organism[ICD10: J18.9] Neela HYMAN DO [facility] CPT-4: 23773 09/03/2018 ([id number]) OFFICE/OUTPATIENT VISIT EST Diagnosis: Personal history of pneumonia (recurrent)[ICD10: Z87.01] Diagnosis: Cough[ICD10: R05] Diagnosis: Essential (primary) hypertension[ICD10: I10] Diagnosis: Type 2 diabetes mellitus with hyperglycemia[ICD10: E11.65] Amita Santiago NEELA JulissaMendez [facility] CPT-4: 33196 08/27/2018 OFFICE/OUTPATIENT VISIT EST Diagnosis: Pneumonia, unspecified organism[ICD10: J18.9] Diagnosis: Chronic obstructive pulmonary disease with (acute) exacerbation[ICD10: J44.1] Diagnosis: Other specified symptoms and signs involving the circulatory and respiratory systems[ICD10: R09.89] Diagnosis: Essential (primary) hypertension[ICD10: I10] Amita Santiagodebbie MURILLO JulissaMendez [facility] CPT-4: 64362 08/13/2018 OFFICE/OUTPATIENT VISIT EST Diagnosis: Pneumonia, unspecified organism[ICD10: J18.9] Diagnosis: Other specified symptoms and signs involving the circulatory and respiratory systems[ICD10: R09.89] Amita MURILLO JulissaMendez [facility] CPT-4: 93690 08/11/2018 ([id number]) OFFICE/OUTPATIENT VISIT EST Diagnosis: Dyspnea, unspecified[ICD10: R06.00] Diagnosis: Chronic obstructive pulmonary disease with (acute) exacerbation[ICD10: J44.1] Diagnosis: Pneumonia, unspecified organism[ICD10: J18.9] Amita Santiagodebbie MURILLO JulissaMendez [facility] CPT-4: 09768 07/16/2018 ([id number]) OFFICE/OUTPATIENT VISIT EST Diagnosis: Acute bronchitis due to other specified organisms[ICD10: J20.8] Diagnosis: Cough[ICD10: R05] Amita Santiagodebbie MURILLO JulissaMendez [facility] T-4: 54883 07/13/2018 ([id number]) OFFICE/OUTPATIENT VISIT EST Diagnosis: Essential (primary) hypertension[ICD10: I10] Diagnosis: Chronic obstructive pulmonary disease, unspecified[ICD10: J44.9] Diagnosis: Type 2 diabetes mellitus with hyperglycemia[ICD10: E11.65] Diagnosis: Mixed hyperlipidemia[ICD10: E78.2] Neela STERLING JulissaMendez [employer] [facility] CPT-4: 82942 06/03/2018 ([id number]) OFFICE/OUTPATIENT VISIT EST Diagnosis: Chronic obstructive pulmonary disease, unspecified[ICD10: J44.9] Gely HYMAN DO [facility] CPT-4: 38725 05/04/2018 ([id number]) OFFICE/OUTPATIENT VISIT EST Diagnosis: Essential (primary) hypertension[ICD10: I10] Diagnosis: Localized edema[ICD10: R60.0] Neela HYMAN DO [facility] CPT-4: 08655 03/03/2018 ([id number]) OFFICE/OUTPATIENT VISIT EST Diagnosis: Localized edema[ICD10: R60.0] Neela HYMAN DO [facility] CPT-4: 33094 02/17/2018 ([id number]) OFFICE/OUTPATIENT VISIT EST Diagnosis: FLU VACCINE[ICD10: Z23] Diagnosis: PNEUMOCOCCAL VACCINE[ICD10: Z23] Diagnosis: Type 2 diabetes mellitus without complications[ICD10: E11.9] Diagnosis: Mixed hyperlipidemia[ICD10: E78.2] Diagnosis: Essential (primary) hypertension[ICD10: I10] Diagnosis: Localized edema[ICD10: R60.0] Diagnosis: Chronic obstructive pulmonary disease, unspecified[ICD10: J44.9] Neela [facility]MAN [facility] CPT-4: 96845 02/10/2018 ([id number]) OFFICE/OUTPATIENT VISIT EST Diagnosis: Type 2 diabetes mellitus with hyperglycemia[ICD10: E11.65] Diagnosis: Mixed hyperlipidemia[ICD10: E78.2] Diagnosis: Essential (primary) hypertension[ICD10: I10] Diagnosis: Chronic obstructive pulmonary disease, unspecified[ICD10: J44.9] Diagnosis: Cutaneous abscess of back [any part, except buttock][ICD10: L02.212] Neela HYMAN DO [facility] CPT-4: 92781 11/05/2017 ([id number]) OFFICE/OUTPATIENT VISIT EST Diagnosis: Allergic urticaria[ICD10: L50.0] Gely HYMAN DO [facility] CPT-4: 33042 09/09/2017 ([id number]) OFFICE/OUTPATIENT VISIT EST Diagnosis: Generalized enlarged lymph nodes[ICD10: R59.1] Diagnosis: Acute gastritis without bleeding[ICD10: K29.00] Gely HYMAN DO [facility] CPT-4: 24214 08/07/2017 ([id number]) OFFICE/OUTPATIENT VISIT EST Diagnosis: Type 2 diabetes mellitus without complications[ICD10: E11.9] Diagnosis: Mixed hyperlipidemia[ICD10: E78.2] Diagnosis: Essential (primary) hypertension[ICD10: I10] Neela HYMAN [facility] CPT-4: 90044 08/04/2017 ([id number]) OFFICE/OUTPATIENT VISIT EST Diagnosis: Zoster without complications[ICD10: B02.9] Diagnosis: Acute sialoadenitis[ICD10: K11.21] Gely HYMAN DO [facility] CPT-4: 09091 06/04/2017 OFFICE/OUTPATIENT VISIT EST Diagnosis: Zoster without complications[ICD10: B02.9] Diagnosis: Acute sialoadenitis[ICD10: K11.21] Gely HYMAN [facility] CPT-4: 84892 06/02/2017 ([id number]) OFFICE/OUTPATIENT VISIT EST Diagnosis: Type 2 diabetes mellitus without complications[ICD10: E11.9] Diagnosis: Mixed hyperlipidemia[ICD10: E78.2] Diagnosis: Essential (primary) hypertension[ICD10: I10] Diagnosis: Chronic obstructive pulmonary disease, unspecified[ICD10: J44.9] Neela HYMAN [facility] CPT-4: 81289 05/05/2017 OFFICE/OUTPATIENT VISIT EST Diagnosis: Chronic obstructive pulmonary disease with acute lower respiratory infection[ICD10: J44.0] Diagnosis: Impacted cerumen, bilateral[ICD10: H61.23] Gely HYMAN [facility] CPT-4: 16222 04/10/2017 ([id number]) OFFICE/OUTPATIENT VISIT EST Diagnosis: FLU VACCINE[ICD10: Z23] Neela BUI [facility] CPT-4: 29005 03/28/2017 ([id number]) OFFICE/OUTPATIENT VISIT EST Diagnosis: Type 2 diabetes mellitus without complications[ICD10: E11.9] Diagnosis: Mixed hyperlipidemia[ICD10: E78.2] Diagnosis: Essential (primary) hypertension[ICD10: I10] Diagnosis: Chronic obstructive pulmonary disease, unspecified[ICD10: J44.9] Neela HYMAN [facility] CPT-4: 97735 02/03/2017 ([id number]) OFFICE/OUTPATIENT VISIT EST Diagnosis: Type 2 diabetes mellitus with hyperglycemia[ICD10: E11.65] Diagnosis: Mixed hyperlipidemia[ICD10: E78.2] Diagnosis: Essential (primary) hypertension[ICD10: I10] Diagnosis: Chronic obstructive pulmonary disease, unspecified[ICD10: J44.9] Neela HYMAN [facility] CPT-4: 81979 10/30/2016 ([id number]) NO CHARGE Diagnosis: Acute bronchitis, unspecified[ICD10: J20.9] Sammi [facility]MAN [facility] CPT-4: 11601 08/30/2016 ([id number]) OFFICE/OUTPATIENT VISIT EST Diagnosis: Acute bronchitis, unspecified[ICD10: J20.9] Diagnosis: Other seasonal allergic rhinitis[ICD10: J30.2] Sammi [facility]MAN [facility] CPT-4: 54690 08/27/2016 ([id number]) OFFICE/OUTPATIENT VISIT EST Diagnosis: Type 2 diabetes mellitus without complications[ICD10: E11.9] Diagnosis: Mixed hyperlipidemia[ICD10: E78.2] Diagnosis: Essential (primary) hypertension[ICD10: I10] Neela [facility]MAN [facility] CPT-4: 15775 07/02/2016 ([id number]) OFFICE/OUTPATIENT VISIT EST Diagnosis: Acute bronchitis, unspecified[ICD10: J20.9] Sammi [facility]MAN [facility] CPT-4: 28451 06/14/2016 ([id number]) OFFICE/OUTPATIENT VISIT EST Diagnosis: Acute bronchitis, unspecified[ICD10: J20.9] Sammi MIRZALINE Octavio [facility] CPT-4: 12390 06/13/2016 ([id number]) OFFICE/OUTPATIENT VISIT EST Diagnosis: Essential (primary) hypertension[ICD10: I10] Neela HYMAN DO [facility] CPT-4: 47060 05/14/2016 ([id number]) OFFICE/OUTPATIENT VISIT EST Diagnosis: Essential (primary) hypertension[ICD10: I10] Neela HYMAN DO [facility] CPT-4: 24226 04/29/2016 ([id number]) OFFICE/OUTPATIENT VISIT EST Diagnosis: Unspecified abdominal pain[ICD10: R10.9] Diagnosis: Left lower quadrant pain[ICD10: R10.32] Diagnosis: Left upper quadrant pain[ICD10: R10.12] Diagnosis: Essential (primary) hypertension[ICD10: I10] Neela HYMAN DO [facility] CPT-4: 80703 04/22/2016 ([id number]) OFFICE/OUTPATIENT VISIT EST Diagnosis: Type 2 diabetes mellitus without complications[ICD10: E11.9] Diagnosis: Mixed hyperlipidemia[ICD10: E78.2] Diagnosis: Essential (primary) hypertension[ICD10: I10] Neela HYMNA DO [facility] CPT-4: 55433 04/01/2016 ([id number]) OFFICE/OUTPATIENT VISIT EST Diagnosis: Type 2 diabetes mellitus with hyperglycemia[ICD10: E11.65] Diagnosis: Mixed hyperlipidemia[ICD10: E78.2] Diagnosis: Essential (primary) hypertension[ICD10: I10] Neela HYMAN DO [facility] CPT-4: 59092 11/30/2015 ([id number]) OFFICE/OUTPATIENT VISIT EST Diagnosis: Type 2 diabetes mellitus with diabetic neuropathy, unspecified[ICD10: E11.40] Diagnosis: Essential (primary) hypertension[ICD10: I10] Diagnosis: Mixed hyperlipidemia[ICD10: E78.2] Neela HYMAN [facility] CPT-4: 91308 08/29/2015 ([id number]) OFFICE/OUTPATIENT VISIT EST Diagnosis: COUGH[ICD10: R05] Diagnosis: Wheezing[ICD10: R06.2] Diagnosis: Type 2 diabetes mellitus with diabetic neuropathy, unspecified[ICD10: E11.40] Neela HYMAN [facility] CPT-4: 05917 08/14/2015 ([id number]) OFFICE/OUTPATIENT VISIT EST Diagnosis: Other seasonal allergic rhinitis[ICD10: J30.2] Diagnosis: Dyspnea, unspecified[ICD10: R06.00] Diagnosis: Wheezing[ICD10: R06.2] Sammi ANNQUELINE Octavio HYMAN DO [facility] CPT-4: 50327 08/09/2015 ([id number]) OFFICE/OUTPATIENT VISIT EST Diagnosis: Essential (primary) hypertension[ICD10: I10] Diagnosis: Type 2 diabetes mellitus with hyperglycemia[ICD10: E11.65] Diagnosis: Mixed hyperlipidemia[ICD10: E78.2] Neela STERLING [facility] [employer] CPT-4: 87999 05/22/2015 ([id number]) OFFICE/OUTPATIENT VISIT EST Diagnosis: DM W/O COMPLICATION TYPE II[ICD9: 250.00] Diagnosis: - I - HYPERTENSION[ICD9: 401.9] Diagnosis: - I - HYPERLIPIDEMIA NEC/NOS[ICD9: 272.4] Diagnosis: Left hand paresthesia[ICD9: 782.0] Neela STERLING [facility] HYMAN [facility] CPT-4: 60428 02/13/2015 ([id number]) OFFICE/OUTPATIENT VISIT EST Diagnosis: HYPERLIPIDEMIA NEC/NOS[ICD9: 272.4] Diagnosis: DM W/O COMPLICATION TYPE II[ICD9: 250.00] Neela MURILLO [facility] [employer] CPT-4: 22535 11/07/2014 ([id number]) OFFICE/OUTPATIENT VISIT EST Diagnosis: ALLERGIC RHINITIS[ICD9: 477.9] Diagnosis: WHEEZING[ICD9: 786.07] Neela MURILLO [employer]issa[facility]endez [employer] CPT-4: 09557 10/04/2014 ([id number]) OFFICE/OUTPATIENT VISIT EST Diagnosis: BRONCHITIS, ACUTE[ICD9: 466.0] Diagnosis: WHEEZING[ICD9: 786.07] Loren MURILLO [facility]issaMendez [employer] CPT-4: 49168 09/22/2014 ([id number]) OFFICE/OUTPATIENT VISIT EST Diagnosis: DYSPNEA[ICD9: 786.09] Diagnosis: WHEEZING[ICD9: 786.07] Diagnosis: Arrhythmia[ICD9: 427.9] Loren Garza NEELA [facility]issa[facility] CPT-4: 51632 09/21/2014 ([id number]) OFFICE/OUTPATIENT VISIT EST Diagnosis: DM W/O COMPLICATION TYPE II, 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] Diagnosis: - I - HYPERLIPIDEMIA NEC/NOS[ICD9: 272.4] Diagnosis: - I - HYPERTENSION[ICD9: 401.9] Neela [facility]URILLO [facility] CPT-4: 05414 06/28/2014 OFFICE/OUTPATIENT VISIT EST Diagnosis: SINUSITIS, ACUTE[ICD9: 461.9] Diagnosis: OTITIS MEDIA NOS[ICD9: 382.9] Sarah Sunshine NEELA [facility]issaMendez [facility] CPT-4: 79389 06/10/2014 ([id number]) OFFICE/OUTPATIENT VISIT EST Diagnosis: DM W/O COMPLICATION TYPE II[ICD9: 250.00] Diagnosis: - I - HYPERLIPIDEMIA NEC/NOS[ICD9: 272.4] Diagnosis: - I - HYPERTENSION[ICD9: 401.9] Neela Sergemelany MURILLO [facility] 60369 03/29/2014 ([id number]) OFFICE/OUTPATIENT VISIT EST Diagnosis: DM W/O COMPLICATION TYPE II[ICD9: 250.00] Diagnosis: - I - HYPERTENSION[ICD9: 401.9] Diagnosis: - I - HYPERLIPIDEMIA NEC/NOS[ICD9: 272.4] Diagnosis: Hand lesion[ICD9: 709.9] Neela [facility] CPT-4: 09575 11/30/2013 ([id number]) OFFICE/OUTPATIENT VISIT EST Diagnosis: DM W/O COMPLICATION TYPE II[ICD9: 250.00] Diagnosis: HYPERLIPIDEMIA NEC/NOS[ICD9: 272.4] Diagnosis: HYPERTENSION[ICD9: 401.9] [facility] CPT-[facility]: 77138 08/03/2013 ([id number]) OFFICE/OUTPATIENT VISIT EST Diagnosis: DM W/O COMPLICATION TYPE II, 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] Diagnosis: HYPERTENSION[ICD9: 401.9] Diagnosis: HYPERLIPIDEMIA NEC/NOS[ICD9: 272.4] Neela HYMAN DO [facility] CPT-4: 77893 04/06/2013 ([id number]) OFFICE/OUTPATIENT VISIT EST Diagnosis: DM W/O COMPLICATION TYPE II[ICD9: 250.00] Diagnosis: HYPERLIPIDEMIA NEC/NOS[ICD9: 272.4] Diagnosis: HYPERTENSION[ICD9: 401.9] Neela [facility] CPT-4: 79790 12/01/2012 ([id number]) OFFICE/OUTPATIENT VISIT EST Diagnosis: DM W/O COMPLICATION TYPE II[ICD9: 250.00] Diagnosis: HYPERTENSION[ICD9: 401.9] Diagnosis: HYPERLIPIDEMIA NEC/NOS[ICD9: 272.4] Neela HYMAN [facility] CPT-4: 64472 08/04/2012 ([id number]) OFFICE/OUTPATIENT VISIT EST Diagnosis: URINARY FREQUENCY[ICD9: 788.41] Neela HYMAN [facility] CPT-4: 50531 06/01/2012 OFFICE/OUTPATIENT VISIT EST Diagnosis: Agitation[ICD9: 307.9] Diagnosis: Frequent urination[ICD9: 788.41] Janet MURILLO [facility]endez [facility] CPT-4: 96780 05/29/2012 OFFICE/OUTPATIENT VISIT EST Diagnosis: SINUSITIS, ACUTE[ICD9: 461.9] Diagnosis: OTALGIA[ICD9: 388.70] Neela CostaMendez [facility] CPT-4: 60719 05/25/2012 OFFICE/OUTPATIENT VISIT EST Diagnosis: DM W/O COMPLICATION TYPE II, 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] Diagnosis: HYPERTENSION[ICD9: 401.9] Diagnosis: HYPERLIPIDEMIA NEC/NOS[ICD9: 272.4] Neela HYMAN [facility] CPT-4: 22343 04/07/2012 OFFICE/OUTPATIENT VISIT EST Diagnosis: FINGER INJURY[ICD9: 959.5] Janet Cunningham [facility] CPT-4: 70277 12/16/2011 ([id number]) OFFICE/OUTPATIENT VISIT EST Diagnosis: DM W/O COMPLICATION TYPE II, 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] Diagnosis: HYPERTENSION[ICD9: 401.9] Diagnosis: HYPERLIPIDEMIA NEC/NOS[ICD9: 272.4] Neeladano Hyman HERMESYesenia GREGORIO S. ORENDER DO [facility] CPT-4: 88767 12/03/2011 ([id number]) OFFICE/OUTPATIENT VISIT EST Diagnosis: DM W/O COMPLICATION TYPE II[ICD9: 250.00] Diagnosis: HYPERLIPIDEMIA NEC/NOS[ICD9: 272.4] Diagnosis: HYPERTENSION[ICD9: 401.9] Neela MURILLO SMendez ORE NDER DO [facility] CPT-4: 59939 08/29/2011 OFFICE/OUTPATIENT VISIT EST Diagnosis: DM W/O COMPLICATION TYPE II[ICD9: 250.00] Diagnosis: HYPERLIPIDEMIA NEC/NOS[ICD9: 272.4] Diagnosis: HYPERTENSION[ICD9: 401.9] Neela MIRZALINE SMendez ORE NDER DO [facility] CPT-4: 78443 05/30/2011 OFFICE/OUTPATIENT VISIT EST Diagnosis: SKIN SENSATION DISTURB[ICD9: 782.0] Neela Sergemelany CROOK DARLINE S. ORENDER DO [facility] CPT-4: 50946 01/29/2011 OFFICE/OUTPATIENT VISIT EST Diagnosis: SKIN SENSATION DISTURB[ICD9: 782.0] Neela Sergeushainna ARMAAN GREGORIO S. ORENDER [facility] CPT-4: 44095 01/14/2011 OFFICE/OUTPATIENT VISIT EST Neela Vlaentineushainna MIRZANEELA SMendez ORE NDER [facility] CPT- 4: 62396 01/01/2011 OFFICE/OUTPATIENT VISIT EST Neela Sergeushainna NEELA S. ORE NDER DO [facility] CPT- 4: 28140 11/29/2010 ([id number]) OFFICE/OUTPATIENT VISIT EST Neela Sergemelany HORAN S. ORENDER DO [facility] CPT-4: 03381 08/28/2010 ([id number]) OFFICE/OUTPATIENT VISIT, EST Neela Sergemelany WILDE S. ORENDER DO [facility] CPT-4: 59589 06/05/2010 ([id number]) OFFICE/OUTPATIENT VISIT, EST Neela Sergemelany WILDE SMendez ORENDER [facility] CPT-4: 25751 02/05/2010 ([id number]) OFFICE/OUTPATIENT VISIT, [facility] CPT-4: 19825 10/09/2009 ([id number]) OFFICE/OUTPATIENT VISIT, RENETTA HYMAN DO [employer] CPT-4: 18851 08/22/2009 Plan of Care Planned Activity Notes Codes Status Date Visit Diagnosis Plan: Advanced chronic obstructive pul monary disease Discussion: Continue oxygen and pulmonary rehab Follow Up: 3 months ICD-9 : 496 ICD-10 : J44.9 05/10/2019 Visit Diagnosis Plan: Lymphoma involving lung Discussi on: Doing weekly lab and chemo ICD-9 : 202.82 ICD-10 : C85.99 05/10/2019 Appointment: Neela Hymantel: [address] [place], [place] [phone] FOLLOW UP 05/10/2019 Appointment: Neela Hmyantel: [address] [place], [place] [phone] he called 04/14/19-- he was at physical [...] ICD-10 : E87.6 03/29/2019 Appointment: Neela Hymantel: [address] [place], [place] [phone] Hospital Follow Up 03/29/2019 Appointment: Neela Hyman WPtel: [address] [place], [place] [phone] [place] INJECTION 03/04/2019 Visit Diagnosis Plan: Chronic obstructiv e pulmonary disease with (acute) exacerbation Discussion: Increase SVNS with duoneb to QID Prednisone taper ICD-9 : 491.21 ICD-10 : J44.1 01/05/2019 Visit Diagnosis Plan: Other nonspecific abnormal findi ng of lung field Discussion: Referral to pulmonology--will likely need bronchoscopy--path results discussed ICD-9 : 786.6 ICD-10 : R91.8 01/05/2019 Appointment: Neela Hyman WPtel: [address] [facility] [place] FOLLOW UP 01/05/2019 Patient Education: prednisone- [employer] Coupon [phone] https://www.[employer]/resources/getResource/61/[email or web address]-9h52-hr Completed 01/05/2019 Care Plan: Referral Order SNOMED-CT : 30 [id number] Pending 01/05/2019 Appointment: Neela Hyman WPtel: [address] [facility] [place] CANCELED 12/21/2018 Visit Diagnosis Plan: Tinea corporis Discussion: Diflu can--hold simvastatin and fenofibrate while taking ICD-9 : 110.5 ICD-10 : B35.4 12/09/2018 Visit Diagnosis Plan: Solitary pulmonary nodule Discus esmer: CT guided needle biopsy of RUL lung mass ICD-9 : 793.11 ICD-10 : R91.1 12/09/2018 Appointment: [facility]el[facility] [facility] 12/09/2018 Appointment: Gely Harp [address] [place] [address] NO SHOW 12/01/2018 Visit Diagnosis Plan: Other [...] : J44.9 11/24/2018 Appointment: Neela Hyman WPtel: [address] [place] [address] [place] FOLLOW UP 11/24/2018 Care Plan: PET IMAGE FULL BODY LOINC : 4 2711-2 Pending 11/24/2018 Appointment: Neela Hyman WPtel: [address] [place] [address] [place] Consult 09/21/2018 Visit Diagnosis Plan: Pneumonia, unspecified organism Discussion: Patient clinically improved. Recent CT scan from 09/07 showed unresolved right upper lobe pneumonia. Finished another 7 days of levaquin. Will repeat CBC early next week. Order sent with patient to get done at [facility]. FU CT recommended in 4 weeks. Patient states understanding. ICD-9 : 486 ICD-10 : J18.9 09/16/2018 Appointment: Amita Henderson [address] [place] [address] [place] FOLLOW UP 09/16/2018 Visit Diagnosis Plan: Pneumonia, unspecified organism Discussion: Clinically patient feels and looks much better but need CT scan of chest due to ongoing round pneumonia in association with his known lymphoma ICD-9 : 486 ICD-10 : J18.9 09/03/2018 Appointment: Neela Hyman WPtel: [address] [place] [address] [place] FOLLOW UP 09/03/2018 Care Plan: CT [...] ICD-10 : Z87.01 08/27/2018 [facility]ment[facility] [id number] [place] FOLLOW UP 08/27/2018 Visit Diagnosis Plan: [...] ICD-10 : I10 08/13/2018 Appointment: [facility]mita Henderson [facility] [id number] [facility] FOLLOW UP 08/13/2018 Appointment: Amita Henderson [facility] [employer] [id number] CANCELED 08/13/2018 Patient Education: prednisone- OptimizeRX Coupon [phone] https://www.[employer]is[employer]/samplemd/resources/getResource/61/gc43ut2q-8r48-6sb4-5l Completed 08/13/2018 Visit Diagnosis Plan: Other specified [...] ICD-10 : J18.9 08/11/2018 Appointment: Amita Henderson [facility] [employer] [address] ACUTE ILLNESS 08/11/2018 Care Plan: CHEST X-RAY 2VW FRONTAL&LATL LOINC : 43302-8 Pending 07/20/2018 Visit Diagnosis Plan: Dyspnea, unspecified Discussion: CXR- to be completed at the hospital. Will call with results and any adjustments in plan. Solumedrol 125 administered in clinic Prednisone 20 mg BID x 5 days- start tomorrow ICD-9 : 786.09 ICD-10 : R06.00 07/16/2018 Appointment: Amita Henderson [facility] [employer] [id number] ACUTE ILLNESS 07/16/2018 Patient Education: prednisone- Opt[employer] Coupon [phone] https://www.[employer].Optisort/samplemd/resources/getResource/61/44z4l1hj-[email or web address]-y2 Completed 07/16/2018 Visit Diagnosis Plan: Acute bronchitis due to other sp ecified organisms Discussion: Kenalog 40 mg IM administered in clinic. Doxycycline called into [facility]. Take as directed. Continue nebulizer and Trelegy. Follow up if symptoms are not improving with treatment regimen. Patient states understanding of all instruction. ICD-9 : 466.0 ICD-10 : J20.8 07/13/2018 Appointment: Amita Henderson [facility] [employer] [id number] ACUTE ILLNESS 07/13/2018 Patient Education: doxycycline hyclate- OptimizeRX Cou saritha [phone] https://www.[employer].com/samplemd/resources/getResource/61/4c755z25-3v6e-3609-1e Completed 07/13/2018 Care Plan: [place] : [address]-6 Pending 07/13/2018 Care Plan: CBC Pending 07/13/2018 Care Plan: A1C HPLC LOINC : 23752-4 Pending 07/13/2018 Visit Diagnosis Plan: Mixed hyperlipidemia [...] : I10 06/03/2018 Appointment: Neela Hyman WPtel: [facility] [address] FOLLOW UP 06/03/2018 Visit Diagnosis Plan: Chronic [...] : J44.9 05/04/2018 Appointment: Gely Harp [address] [place] [address] ACUTE ILLNESS 05/04/2018 Visit Diagnosis Plan: Localized edema Discussion: Cont inue lasix and potassium at every other day Recheck lab and fwup in 3mos Follow Up: 3 months ICD-9 : 782.3 ICD-10 : R60.0 03/03/2018 Appointment: Neela Hyman WPtel: [facility] [place] FOLLOW UP 03/03/2018 Patient Education: Patient Medication Summary Completed 03/03/2018 Visit Diagnosis Plan: Localized edema Discussion: Finch ge lasix and potassium to every other day Check Chem 7 in 2 weeks and fwup ICD-9 : 782.3 ICD-10 : R60.0 02/17/2018 Appointment: Neela Hyman WPtel: [address] [place], [place] [phone] FOLLOW UP 02/17/2018 Patient Education: Patient Medication [...] : R60.0 02/10/2018 Appointment: Neela Hyman WPtel: [address] [place], [place] [address] FOLLOW UP 02/10/2018 Patient Education: Patient Medication [...] L02.212 11/05/2017 Appointment: Ne[facility]Ptel: [facility] [facility] [facility] 11/05/2017 Patient Education: Patient Medication Summary Completed 11/05/2017 Patient Education: Patient Medication Summary Completed 11/03/2017 Care Plan: [place] : [address]-9 Pending 11/03/2017 Care Plan: LIPID PANEL LOINC : 15761-0 Pending 11/03/2017 Care Plan: CBC Pending 11/03/2017 Care Plan: A1C HPLC LOINC : 38990-3 Pending 11/03/2017 Visit Diagnosis Plan: Allergic urticaria [...] : L50.0 09/09/2017 Appointment: Gely Harp [address] [place], [place] [address] ACUTE ILLNESS 09/09/2017 Patient Education: Patient Medication [...] ICD-10 : R59.1 08/07/2017 Appointment: Gely Harp [address] [place], [place] [phone] [place] [address] Follow Up 08/07/2017 Patient Education: Patient Medication Summary Completed 08/07/2017 Visit Diagnosis Plan: Type 2 diabetes mellitus without complications Discussion: Accuchecks daily Lab discussed Continue current meds ICD-9 : 250.00 ICD-10 : E11.9 08/04/2017 Visit Diagnosis Plan: Essential (primary) hypertension Discussion: Increase Cardizem CD to 360mg daily ICD-9 : 401.9 ICD-10 : I10 08/04/2017 Appointment: Neela Hyman WPtel: [facility] FOLLOW UP 08/04/2017 Patient Education: Patient Medication Summary Completed 08/04/2017 Patient Education: Patient Medication Summary Completed 07/31/2017 Care Plan: [place] : [address]-5 Pending 07/31/2017 Care Plan: ASSAY THYROID STIM HORMONE Pen ding 07/31/2017 Care Plan: LIPID PANEL LOINC : 03782-6 Pending 07/31/2017 Care Plan: CBC Pending 07/31/2017 Care Plan: A1C HPLC LOINC : 05028-2 Pending 07/31/2017 Patient Education: Patient Medication Summary Completed 06/19/2017 Patient Education: Patient Medication Summary Completed 06/09/2017 Care Plan: CT SOFT TISSUE [place] : [address]-6 Pending 06/09/2017 Visit Diagnosis Plan: Acute sialoadenitis [...] : B02.9 06/04/2017 Appointment: Gely Harp [address] [facility] ACUTE ILLNESS 06/04/2017 Patient Education: [...] : B02.9 06/02/2017 Appointment: Gely Harp [address] [facility] ACUTE ILLNESS 06/02/2017 Patient Education: Patient Medication [...] E11.9 05/05/2017 Appointment: Neela Hyman WPtel: [phone] [facility] FOLLOW UP 05/05/2017 Patient Education: Patient Medication Summary Completed 05/05/2017 Patient Education: Patient Medication Summary Completed 05/01/2017 Care Plan: A1C HPLC [facility] : 49512-7 Pending 05/01/2017 Visit Diagnosis Plan: Chronic obstructiv [...] ICD-10 : H61.23 04/10/2017 Appointment: Gely Harp [address] [place] [address] ACUTE ILLNESS 04/10/2017 Patient Education: Patient Medication Summary Completed 04/10/2017 Appointment: Neela Hyman WPtel: [address] [place] [address] INJECTION 03/28/2017 Patient Education: Patient Medication Summary [...] : J44.9 02/03/2017 Appointment: Neela Hyman WPtel: [facility] [address] FOLLOW UP 02/03/2017 Patient Education: Patient Medication Summary Completed 02/03/2017 Patient Education: Patient Medication Summary Completed 01/30/2017 Care Plan: [place] : [address]-9 Pending 01/30/2017 Care Plan: LIPID PANEL LOINC : 49201-2 Pending 01/30/2017 Care Plan: CBC Pending 01/30/2017 Care Plan: A1C HPLC LOINC : 16325-8 Pending 01/30/2017 Care Plan: ASSAY OF PSA [...] : E11.65 10/30/2016 Appointment: Neela Hyman WPtel: [address] [place], [place] [address] [place] 10/29 lm ~sl 10/30 confirmed~sl FOLLOW UP 11/2016 Patient Education: Patient Medication Summary Completed 10/30/2016 Patient Education: Patient Medication Summary Completed 10/24/2016 Visit Diagnosis Plan: Acute bronchitis, unspecified Di scussion: Patient sounds and looks much improved Continue current regimen Keep appt with Dr Levi for Friday Follow up PRN ICD-9 : 466.0 ICD-10 : J20.9 08/30/2016 Appointment: Sammi Najera [address] [place], [place] [address] 4/6 rang and rang rang 4/7 rang [...] ICD-10 : J20.9 08/27/2016 Appointment: Sammi Najera [address] [place], [place] [address] [place] FOLLOW UP 08/27/2016 Patient Education: Patient Medication Summary Completed 08/27/2016 Care Plan: Referral Order SNOMED-CT : 30 2233418 Pending 08/27/2016 Visit Diagnosis Plan: Type 2 [...] : I10 07/02/2016 Appointment: Neela Hyman WPtel: [facility] 07/01 rang and rang`sl FOLLOW UP 7 Patient Education: Patient Medication Summary Completed 07/02/2016 Patient Education: Patient Medication Summary Completed 06/27/2016 Care Plan: LIPID PANEL LOINC : 55299-5 Pending 06/27/2016 Care Plan: [place] : 79[address]-5 Pending 06/27/2016 Care Plan: A1C HPLC LOINC : 70460-6 Pending 06/27/2016 Visit Diagnosis Plan: Acute bronchitis, [...] : J20.9 06/14/2016 Appointment: [facility] FOLLOW UP 06/14/2016 Patient Education: Patient Medication [...] ICD-10 : J20.9 06/13/2016 Appointment: Sammi Najera [address] [place], [place] [id number] ACUTE ILLNESS 06/13/2016 Patient Education: Patient Medication Summary Completed 06/13/2016 Care Plan: CHEST X-RAY 2VW FRONTAL&LATL LOINC : 01164-4 Pending 06/13/2016 Visit Plan: Increase metoprolol to 100mg po BID BP readings and BP check in 1month 05/14/2016 Appointment: Neela Hyman WPtel: [address] [place] [address] 05/13 rang and rang`sl FOLLOW UP 6 Patient Education: Patient Medication Summary Completed 05/14/2016 Visit Plan: Increase metoprolol to 50mg BID BP check in 1 week f/u BP appt 2 weeks consider musculoskeletal if pain returns 04/29/2016 Appointment: Neela Hyman WPtel: [address] [place], [place] [address] 04/25 confimred~sl FOLLOW UP 04/29/2016 Patient Education: Patient Medication Summary Completed 04/29/2016 Visit Plan: Stat CT scan of abdomen/pelv is to look for stone Hydrate and use tramadol prn Increase metoprolol to 25mg po BID Will see urology pending CT scan results 04/22/2016 Appointment: Neela Hyman WPtel: [address] [place], [place] [phone] 04/17 confirmed-sp ACUTE ILLNESS 04/22/2016 Patient Education: [...] flu shot 04/01/2016 Appointment: Neela Hyman WPtel: [address] [place] [address] FOLLOW UP 04/01/2016 Patient Education: Patient Medication Summary Completed 04/01/2016 Patient Education: [facility] - Saving AutoInj - 18-64 - Dynamic Heber l ID Completed 04/01/2016 Patient Education: Patient Medication Summary Completed 03/28/2016 Care Plan: A1C HPLC LOINC : 02369-4 Pending 03/28/2016 Care Plan: [place] : [address]-5 Pending 03/28/2016 Visit Plan: Lab discussed Continue curre nt meds Accuchecks daily 11/30/2015 Appointment: Neela Hyman WPtel: [address] [place] [address] 11/28 confirmed~sl FOLLOW UP 11/30/2015 Patient Education: Patient Medication Summary Completed 11/30/2015 Appointment: Neela Hyman WPtel: [address] [place] [address] [place] RESCHEDULED 11/28/2015 Patient Education: Patient Medication Summary Completed 11/23/2015 Care Plan: [place] : [address]56[address]-1 Pending 11/23/2015 Care Plan: LIPID PANEL LOINC : 53545-7 Pending 11/23/2015 Care Plan: CBC Pending 11/23/2015 Care Plan: A1C HPLC LOINC : 45463-9 Pending 11/23/2015 Visit Plan: Lab discussed Accuchecks richard ly Continue current meds Cymbalta helping with feet and mood 08/29/2015 Appointment: Neela Hyman WPtel: [address] [place] [address] [place] FOLLOW UP 08/29/2015 Patient Education: Patient Medication Summary Completed 08/29/2015 Visit Plan: Check CXR Stop all steroids and steroid inhalers Use SVN with but change to duoneb Add singulair for allergy etiology Change fluoxetine to cymbalta 60mg daily Viagra samples given to try prn--warned of no nitrates 08/14/2015 Appointment: Neela Hyman WPtel: [address] [facility] lm to reschedule ~sl 07/27 lm ~sl 08/09 busy 08/10 fer rosales-sp Annual Well Visit 08/14/2015 Patient Education: Patient Medication Summary Completed 08/14/2015 Care Plan: CHEST X-RAY 2VW FRONTAL&LATL LOINC : 93427-1 Ordered 08/14/2015 Visit Plan: Decadron 8mg given [...] as expected 08/09/2015 Appointment: Sammi Najera [address] [facility]6[address] ER Follow UP 08/09/2015 Patient Education: Patient [...] it 05/22/2015 Appointment: Neela Hyman WPtel: [phone] [facility] 05/17 confirmed~sl FOLLOW UP 05/22/2015 Patient Education: Patient Medication Summary Completed 05/22/2015 Patient Education: Patient Medication Summary Completed 05/15/2015 Visit Plan: Obtain EMGs done at [facility] from when fractured left arm Lab discussed Accuchecks daily 02/13/2015 Appointment: Neela Hyman WPtel: [address] [place], [place] [address] 02/10 confrimed FOLLOW UP 02/13/2015 Patient Education: Patient Medication Summary Completed 02/13/2015 Patient Education: Patient Medication Summary Completed 02/09/2015 Visit Plan: discussed lab add fenofibrat e 134mg po daily recheck fasting lab in 3 months, CBC, CMP, Lipids, hgb AIC 11/07/2014 Appointment: Neela Hyman WPtel: [address] [place], [place] [phone] 11/04 appt confirmed cn FOLLOW UP 015 Patient Education: Patient Medication Summary Completed 11/07/2014 Patient Education: Patient Medication Summary Completed 11/03/2014 Visit Plan: Continue loratadine 10mg richard ly Notify if symptoms return 10/04/2014 Appointment: Neela Hyman WPtel: [address] [place] [address] confirmed on 10/03 at 2:42pm FOLLOW UP 09/23 Patient Education: Patient Medication Summary Completed 10/04/2014 Appointment: Neela Hyman WPtel: [address] [place] [address] ACUTE ILLNESS 09/28/2014 Appointment: Loren Garza WPtel: [address] [place], [place] [id number] FOLLOW UP 09/22/2014 Patient Education: Patient Medication Summary Completed 09/22/2014 Appointment: Loren Garza WPtel: [address] [place], [place] [phone] ACUTE ILLNESS 09/21/2014 Patient Education: Patient Medication Summary Completed 09/21/2014 Patient Education: [facility] - Saving AutoInj - 18+ - Dynamic Portal ID Completed 09/21/2014 Visit Plan: Lab discussed Continue daily accuchecks Continue current meds 06/28/2014 Appointment: Neela Hyman WPtel: [address] [place], [place] [phone] [place] FOLLOW UP 06/28/2014 Patient Education: Patient Medication Summary Completed 06/28/2014 Patient Education: Patient Medication Summary Completed 06/23/2014 Appointment: Sarah Sunshine WPtel: [address] [place], [place] [phone] ACUTE ILLNESS 06/10/2014 Patient Education: Patient Medication Summary Completed 06/10/2014 Patient Education: [facility] - Saving AutoInj - 18+ - Dynamic Portal ID Completed 06/10/2014 Visit Plan: Lab discussed Continue daily accuchecks Continue current meds 03/29/2014 Appointment: Neela Hyman WPtel: [address] [place], [place] [phone] FOLLOW UP 03/29/2014 Patient Education: Patient Medication Summary Completed 03/29/2014 Patient Education: Patient Medication Summary Completed 03/23/2014 Visit Plan: Lab discussed Continue curre nt meds and accuchecks See surgery for removal of hand lesion 11/30/2013 Appointment: Neela Hyman WPtel: [address] [place], [place] [phone] 11/29 no answer FOLLOW UP 11/30/2013 Patient Education: Patient Medication Summary Completed 11/30/2013 Visit Plan: Lab discussed Continue curre nt meds 08/03/2013 Appointment: Neela Hyman WPtel: [address] [place], [place] [phone] FOLLOW UP 08/03/2013 Patient Education: Patient Medication Summary Completed 08/03/2013 Visit Plan: Lab Discussed Will continue current meds and pt will get back on diet/exercise Check lab in 4mos and fwup 04/06/2013 Appointment: Neela Hyman WPtel: [address] [place], [place] [phone] [place] FOLLOW UP 04/06/2013 Patient Education: Patient Medication Summary Completed 04/06/2013 Visit Plan: Lab discussed Continue daily accuchecks 12/01/2012 Appointment: Neela Hyman WPtel: [address] [place], [place] [phone] 11/30 no answer FOLLOW UP 12/01/2012 Patient Education: Patient Medication Summary Completed 12/01/2012 Visit Plan: Continue current meds and da russell accuchecks Lab discussed 08/04/2012 Appointment: Neela Hyman WPtel: [address] [place], [place] [phone] FOLLOW UP 08/04/2012 Patient Education: Patient Medication Summary Completed 08/04/2012 Appointment: Neela Hyman WPtel: [address] [place], [place] [phone] UA 06/01/2012 Patient Education: Patient Medication Summary Completed 06/01/2012 Appointment: Janet Jean Baptiste WPtel: [address] [place], [place] [phone] FOLLOW UP 05/29/2012 Patient Education: [...] town at the hearing aid place on [address]. Discussed that ear pain is likely caused by sinus pressure. Pt. will notify if no improvement. 05/25/2012 Appointment: Janet Jean Baptiste WPtel: [address] [place], [place] [id number] ACUTE ILLNESS 05/25/2012 Patient Education: Patient Medication Summary Completed 05/25/2012 Visit Plan: Continue current meds Contin ue daily accuchecks but alternate times Increase fish oil to 3gm daily 04/07/2012 Appointment: Neela Hyman WPtel: [address] [place], [place] [phone] 04/06 FOLLOW UP 04/07/2012 Patient Education: Patient Medication Summary Completed 04/07/2012 Appointment: Janet Jean Baptiste WPtel: [address] [place], [place] [phone] ACUTE ILLNESS 12/16/2011 Patient Education: Patient Medication Summary Completed 12/16/2011 Visit Plan: Increase 12/03/2011 Appointment: Neela Hyman WPtel: [address] [place], [place] [phone] [place] FOLLOW UP 12/03/2011 Patient Education: Patient Medication Summary Completed 12/03/2011 Visit Plan: Continue current meds Contin ue accuchecks 08/29/2011 Appointment: Neela Hyman WPtel: [address] [place], [place] [phone] FOLLOW UP 08/29/2011 Patient Education: Patient Medication Summary Completed 08/29/2011 Visit Plan: Continue current meds except restart zocor 05/30/2011 Appointment: Neela Hyman WPtel: [address] [place], [place] [phone] FOLLOW UP 05/30/2011 Patient Education: Patient Medication Summary Completed 05/30/2011 Visit Plan: Continue tennis elbow strap May go back to weight-lifing--light weigts every other day 01/29/2011 Appointment: Neela Hyman WPtel: [address] [place] [address] FOLLOW UP 01/29/2011 Patient Education: Patient Medication Summary Completed 01/29/2011 Visit Plan: Continue tennis elbow strap and anti-inflammatories 01/14/2011 Appointment: Neela Hyman WPtel: [address] [place], [place] [phone] [place] FOLLOW UP 01/14/2011 Appointment: Janet Jean Baptiste WPtel: [address] [place], [place] [phone] [place] NEW PATIENT 01/14/2011 Patient Education: Patient Medication Summary Completed 01/14/2011 Appointment: Neela Hyman WPtel: [address] [place], [place] [phone] [place] FOLLOW UP 01/08/2011 Appointment: Neela Hyman WPtel: [phone] FOLLOW UP 01/01/2011 Appointment: Neela Hyman WPtel: [address] [place] [address] 01/01/2011 Patient Education: Patient Medication Summary Completed [...] 11/29/2010 Appointment: Janet Jean Baptiste WPtel: [address] [place] [phone] ACUTE ILLNESS 11/29/2010 Patient Education: Patient Medication Summary Completed 11/29/2010 Visit Plan: Cont current meds Check CMP, Lipids, HbA1C 08/28/2010 Appointment: Neela Hyman WPtel: [address] [place] [address] FOLLOW UP 08/28/2010 Patient Education: Patient Medication Summary Completed 08/28/2010 Visit Plan: Cont current meds and accuch ecks Add Zocor 40mg q HS Check Lipids and HbA1C in 3mos 06/05/2010 Appointment: Neela Hyman WPtel: [address] [place] [address] FOLLOW UP 06/05/2010 Patient Education: Patient Medication Summary Completed 06/05/2010 Visit Plan: Check Lipids and HbA1C 02/05/2010 Appointment: Neela Hyman WPtel: [address] [place] [address] FOLLOW UP 02/05/2010 Patient Education: Patient Medication Summary Completed 02/05/2010 Visit Plan: HbA1C in 3mos. Continue Accu checks BID alternating times. Check HbA1C, CMP, Lipids 10/09/2009 Appointment: [facility]yman [facility]el[facility] [phone] [id number] [place] FOLLOW UP 10/09/2009 Patient Education: Patient Medication Summary Completed 10/09/2009 Visit Plan: Saline nasal flushes prn. Ty lenol/Motrin prn headache. Notify if persists/symptoms worsening. 08/22/2009 Appointment: Neela Hyman WPtel: [phone] [id number] ACUTE ILLNESS 08/22/2009 Patient Education: Patient Medication Summary Completed 08/22/2009 Referral: Aubrey Rand [facility] [phone] [id number] [place] Office will verfy his insurance then they will contact patient Completed Referral: Shahbaz Brennan WPtel: [address] [facility] 201 [id number] [place] Referral Completed Referral: Ion Levi [address] [place] [id number] [place] Referral Appointment Requested Referral: Ion Levi [address] [facility] C&D [id number] [place] Referral Appointment Requested Instructions Comment . [...] with it . Obt[facility] when fractured left arm Lab discussed [...] town at the hearing aid place on [address]. Discussed that ear pain is likely caused [...]
--- OUTSIDE RECORDS SUMMARY | 2019-12-09 09:20 | XMS REPORT | CCD ---
Author Author Michael Hyman D.O. Organization [facility] Address [address] [place] [address] Phone Care Team Providers Care Communicable Disease Specialist Name Role Phone Neela Hyman D.O., PP Unavailable CCM Unavailable Summary Purpose Interface Exchange Insurance Providers Payer name Policy type / Coverage type Covered green party ID Effective Begin Date Effective End Date ABS FOR [employer] Commercial Insurance [id number] Unknown Family History Family History data not found Social History Social History Element Codes Description Effective Dates Marital status Unknown 05/30/[address]: 9346286 Former smoker quit 25 years ago 01/01/2011 [...] Fill Instructions Zocor 40 mg tablet RxNorm: 066900 TAKE ONE TABLET BY M OUTH EVERY NIGHT AT BEDTIME 06/21/2019 11/17/2019 Active diltiazem ER 360 mg capsule,24 hr,extended release RxNorm: 8 56236 TAKE ONE CAPSULE BY MOUTH AT BEDTIME -REPLACES 300MG 05/17/2019 11/12/2019 Active MagOx 400 mg (241.3 mg magnesium) tablet RxNorm: 647741 1 Table t(s) Oral QD 04/26/2019 06/24/2019 Active Lasix 40 mg tablet RxNorm: 646295 40 MG PO DAILY 04/12/2019 No Stop Da te Active Benicar 40 mg tablet RxNorm: 825094 1 Tablet(s) Oral QD 03/29/2019 Active potassium chloride ER 20 mEq tablet,extended release RxNorm: 083385 1 Tablet(s) Oral two times a day 03/29/2019 06/27/2019 Active metformin 500 mg tablet RxNorm: 012515 2 Tablet(s) Oral two afshan es a day 03/29/2019 No Stop Date Active potassium chloride ER 20 mEq tablet,extended release RxNorm: 725455 1 Tablet(s) Oral QD 03/29/2019 03/28/2019 Inactive Benicar 40 mg tablet RxNorm: 407871 1 Tablet(s) Oral QD 03/29/2019 Inactive MagOx 400 mg (241.3 mg magnesium) tablet RxNorm: 298134 1 Table t(s) Oral QD 03/29/2019 04/25/2019 Inactive fenofibrate micronized 134 mg capsule RxNorm: 652564 TA KE ONE CAPSULE BY MOUTH EVERY DAY 03/05/2019 08/31/2019 Active duloxetine 60 mg capsule,delayed release RxNorm: 760660 1 Capsu le(s) PO QD 01/28/2019 07/26/2019 Active Trelegy Ellipta 100 mcg-62.5 mcg-25 mcg powder for inhalatio n RxNorm: 0560131 1 Puff(s) INH QD 01/06/2019 12/31/2019 Active 90 day supply prednisone 20 mg tablet RxNorm: 348522 1 Tablet(s) PO T ID for 3 days then 1 po BID for 3 days then 1 po daily for 3 days 01/05/2019 03/28/2019 Inacti ve metformin ER 1,000 mg tablet,extended release 24hr RxNorm: 1 597770 TAKE TWO TABLETS (1000MG) BY MOUTH TWO TIMES A DAY 12/22/2018 03/28/2019 Inacti ve Diflucan 100 mg tablet RxNorm: 977869 1 Tablet(s) PO QD 12/09/2018 Inactive albuterol sulfate 2.5 mg/3 mL (0.083 %) solution for n ebulization RxNorm: 590390 3 Milliliter(s) INH ONE VIAL VIA NEBULIZER EVERY 4 HOURS 019 07/21/2019 Active [AttnRPh: Saving apply/adjudicate RxGRP: SG20 RxBIN:[id number] RxPCN: ID#:[id number]] prednisone 20 mg tablet RxNorm: 867014 1 Tablet(s) PO B ID for 4 days then 1 po daily for 4 days 11/24/2018 01/04/2019 Inactive Trelegy Ellipta 100 mcg-62.5 mcg-25 mcg powder for inhalatio n RxNorm: 0051338 1 Puff(s) INH QD 10/27/2018 01/06/2019 Inactive 90 day supply metoprolol succinate ER 100 mg tablet,extended release 24 hr RxNorm: 213844 TAKE ONE TABLET BY MOUTH TWICE A DAY 10/13/2018 07/09/2019 Active diltiazem ER 360 mg capsule,24 hr,extended release RxNorm: 8 20185 TAKE ONE CAPSULE BY MOUTH AT BEDTIME -REPLACES 300MG 10/13/2018 04/10/2019 Inactive Trelegy Ellipta 100 mcg-62.5 mcg-25 mcg powder for inhalatio n RxNorm: 9477768 INHALE ONE PUFF ONCE DAILY 09/07/2018 10/27/2018 Inactive Levaquin 750 mg tablet RxNorm: 368143 1 Tablet(s) PO QD 09/07/2018 Inactive Levaquin 750 mg tablet RxNorm: 644240 1 Tablet(s) PO QD 09/07/2018 Inactive prednisone 20 mg tablet RxNorm: 733194 2 Tablet(s) PO QAM 08/13/2018 08/19/2018 Inactive Levaquin 500 mg tablet RxNorm: 967481 1 Tablet(s) PO QD 08/11/2018 Inactive fenofibrate micronized 134 mg capsule RxNorm: 246540 TA KE ONE CAPSULE BY MOUTH EVERY DAY 08/10/2018 02/05/2019 Inactive prednisone 20 mg tablet RxNorm: 913170 1 Tablet(s) PO BID 07/16/2018 07/20/2018 Inactive doxycycline hyclate 100 mg capsule RxNorm: 0255300 1 Capsule(s) PO BID 07/13/2018 07/22/2018 Inactive duloxetine 60 mg capsule,delayed release RxNorm: 926494 TAKE ONE CAPSULE BY MOUTH ONCE A DAY 07/08/2018 01/28/2019 Inactive Lasix 40 mg tablet RxNorm: 246989 1 TABLET(S) PO QAM 06/08/201809/05 Inactive potassium chloride ER 20 mEq tablet,extended release(p art/cryst) RxNorm: 0126869 1 TABLET(S) PO QD 06/08/2018 09/05/2018 Inactive metformin ER 1,000 mg tablet,extended release 24hr RxNorm: 1 771189 TAKE TWO TABLETS (1000MG) BY MOUTH TWO TIMES A DAY 06/01/2018 11/27/2018 Inacti ve Benicar HCT 40 mg-25 mg tablet RxNorm: 259859 TAKE ONE TABLET BY MOUTH ONCE DAILY 05/11/2018 03/28/2019 Inactive Zocor 40 mg tablet RxNorm: 338685 TAKE ONE TABLET BY M OUTH EVERY NIGHT AT BEDTIME 05/11/2018 06/20/2019 Inactive Trelegy Ellipta 100 mcg-62.5 mcg-25 mcg powder for inhalatio n RxNorm: 4351890 1 PUFF(S) INH QD 04/06/2018 07/04/2018 Inactive diltiazem ER 360 mg capsule,24 hr,extended release RxNorm: 8 68496 1 Capsule(s) PO QHS replaces 300mg dose 03/30/2018 09/25/2018 Inactive Trelegy Ellipta 100 mcg-62.5 mcg-25 mcg powder for inhalatio n RxNorm: 3314562 1 Puff(s) INH QD 02/24/2018 02/23/2018 Inactive Trelegy Ellipta 100 mcg-62.5 mcg-25 mcg powder for inhalatio n RxNorm: 8510726 1 Puff(s) INH QD 02/24/2018 02/23/2018 Inactive Trelegy Ellipta 100 mcg-62.5 mcg-25 mcg powder for inhalatio n RxNorm: 9685772 1 Puff(s) INH QD 02/24/2018 04/05/2018 Inactive Lasix 40 mg tablet RxNorm: 943692 1 Tablet(s) PO QAM 02/10/201803/11 Inactive potassium chloride ER 20 mEq tablet,extended release(p art/cryst) RxNorm: 7088456 1 Tablet(s) PO QD 02/10/2018 03/11/2018 Inactive fenofibrate micronized 134 mg capsule RxNorm: 101486 1 Capsule( s) PO QD 01/30/2018 07/28/2018 Inactive metoprolol succinate ER 100 mg tablet,extended release 24 hr RxNorm: 235710 TAKE ONE TABLET BY MOUTH TWICE A DAY 12/30/2017 09/25/2018 Inactive metformin ER 1,000 mg tablet,extended release 24hr RxNorm: 1 467510 1 Tablet(s) PO BID 11/17/2017 05/15/2018 Inactive [SAVINGS FOR NON -COVERED DRUGS -- BIN:328377, PCN: ASPROD1, Group: XXXXX, ID# [id number], Questions: . THIS IS NOT INSURANCE.] Benicar HCT 40 mg-25 mg tablet RxNorm: 008661 1 Tablet(s) PO QD 05/10/2018 Inactive [SAVINGS FOR NON-COVERED JESU GS -- BIN:758224, PCN: ASPROD1, Group: XXXXX, ID# [id number], Questions: . THIS IS NOT INSURANCE.] Bactroban 2 % topical cream RxNorm: 050705 Application TOP BID 10/2409/02/2018 Inactive clindamycin HCl 300 mg capsule RxNorm: 932104 2 Capsule(s) PO TID 0 11/05/2017 11/18/2017 Inactive duloxetine 60 mg capsule,delayed release RxNorm: 847079 Capsule(s) TAKE ONE CAPSULE BY MOUTH ONCE DAILY 09/24/2017 09/23/2017 Inactive triamcinolone acetonide 0.1 % topical ointment RxNorm: 8141554 1 TOP BID 09/09/2017 11/04/2017 Inactive Bactrim DS 800 mg-160 mg tablet RxNorm: 584261 1 Tablet(s) PO BID 0 08/07/2017 08/13/2017 Inactive metronidazole 500 mg tablet RxNorm: 020149 1 Tablet(s) PO BID 08/0708/13/2017 Inactive diltiazem ER 360 mg capsule,24 hr,extended release RxNorm: 8 43104 1 Capsule(s) PO QHS replaces 300mg dose 08/04/2017 01/30/2018 Inactive fenofibrate micronized 134 mg capsule RxNorm: 254345 1 Capsule( s) PO QD 07/21/2017 01/30/2018 Inactive Zocor 40 mg tablet RxNorm: 804953 1 Tablet(s) PO QHS 07/21/201705/10 Inactive GB duloxetine 60 mg capsule,delayed release RxNorm: 122710 Capsule(s) TAKE ONE CAPSULE BY MOUTH ONCE DAILY 06/24/2017 09/24/2017 Inactive Cleocin HCl 300 mg capsule RxNorm: 571376 2 Capsule(s) PO BID 06/0206/08/2017 Inactive acyclovir 800 mg tablet RxNorm: 676817 1 Tablet(s) PO 5x day 201706/08/2017 Inactive diltiazem ER 300 mg capsule,24 hr,extended release RxNorm: 8 44083 1 Capsule(s) PO QHS replaces 240mg dose 05/05/2017 08/03/2017 Inactive ipratropium-albuterol 0.5 mg-3 mg(2.5 mg base)/3 mL ne bulization soln RxNorm: 8495794 1 Unit Dose INH Q4H as needed 05/05/2017 01/04/2019 Inactive metformin ER 1,000 mg tablet,extended release 24hr RxNorm: 1 574708 1 Tablet(s) PO BID 04/28/2017 11/17/2017 Inactive [SAVINGS FOR NON -COVERED DRUGS -- BIN:612399, PCN: ASPROD1, Group: XXXXX, ID# [id number], Questions: . THIS IS NOT INSURANCE.] diltiazem ER (XR/XT) 240 mg capsule,extended release 2 4 hr, controlled RxNorm: 139755 TAKE ONE CAPSULE BY MOUTH EVERY DAY 04/15/2017 05/04/2017 Inact avani prednisone 20 mg tablet RxNorm: 109070 1 Tablet(s) PO QD 04/10/2017 1 06/14/2016 Inactive Breo Ellipta 200 mcg-25 mcg/dose powder for inhalation RxNor m: 1568117 1 Puff(s) INH QD 04/10/2017 02/09/2018 Inactive Breo Ellipta 200 mcg-25 mcg/dose powder for inhalation RxNor m: 3668540 1 Puff(s) INH QD 04/10/2017 04/09/2017 Inactive Levaquin 500 mg tablet RxNorm: 054872 1 Tablet(s) PO QD 04/10/2017 Inactive metoprolol succinate ER 100 mg tablet,extended release 24 hr RxNorm: 694819 TAKE ONE TABLET BY MOUTH TWICE A DAY 03/24/2017 12/18/2017 Inactive fenofibrate micronized 134 mg capsule RxNorm: 460207 1 Capsule( s) PO QD 01/16/2017 07/21/2017 Inactive Benicar HCT 40 mg-25 mg tablet RxNorm: 723449 1 Tablet(s) PO QD 11/17/2017 Inactive [SAVINGS FOR NON-COVERED JESU GS -- BIN:131699, PCN: ASPROD1, Group: XXXXX, ID# [id number], Questions: . THIS IS NOT INSURANCE.] metoprolol succinate ER 100 mg tablet,extended release 24 hr RxNorm: 599604 1 Tablet(s) PO BID 10/16/2016 03/23/2017 Inactive diltiazem ER (XR/XT) 240 mg capsule,extended release 2 4 hr, controlled RxNorm: 146196 1 Capsule(s) PO QD 10/16/2016 04/13/2017 Inactive [SAVINGS FOR NON- COVERED DRUGS -- BIN:442322, PCN: ASPROD1, Group: XXXXX, ID# XXXXXXX, Questions: . THIS IS NOT INSURANCE.] metformin ER 1,000 mg tablet,extended release 24hr RxNorm: 8 73624 1 Tablet(s) PO BID 10/16/2016 04/28/2017 Inactive [SAVINGS FOR NON -COVERED DRUGS -- BIN:876694, PCN: ASPROD1, Group: XXXXX, ID# [id number], Questions: . THIS IS NOT INSURANCE.] Zocor 40 mg tablet RxNorm: 300280 1 Tablet(s) PO QHS 10/16/201607/21 Inactive GB Singulair 10 mg tablet RxNorm: 509040 Tablet(s) 1 TABLET(S) PO QHS 08/27/2016 09/02/2018 Inactive prednisone 20 mg tablet RxNorm: 042610 1 Tablet(s) PO QD 08/27/2016 0 08/31/2016 Inactive ipratropium-albuterol 0.5 mg-3 mg(2.5 mg base)/3 mL ne bulization soln RxNorm: 3316819 1 Unit Dose INH Q4H as needed 08/27/2016 05/04/2017 Inactive metoprolol succinate ER 100 mg tablet,extended release 24 hr RxNorm: 279259 TAKE ONE TABLET BY MOUTH TWICE A DAY 08/05/2016 10/16/2016 Inactive duloxetine 60 mg capsule,delayed release RxNorm: 009847 TAKE ONE CAPSULE BY MOUTH ONCE DAILY 08/05/2016 06/24/2017 Inactive prednisone 20 mg tablet RxNorm: 341083 1 Tablet(s) PO QD 06/14/2016 0 06/18/2016 Inactive ipratropium-albuterol 0.5 mg-3 mg(2.5 mg base)/3 mL ne bulization soln RxNorm: 7320304 1 Unit Dose INH Q4H as needed 06/13/2016 08/26/2016 Inactive Levaquin 500 mg tablet RxNorm: 964154 1 Tablet(s) PO QD 06/13/2016 Inactive metoprolol succinate ER 100 mg tablet,extended release 24 hr RxNorm: 172185 1 Tablet(s) PO BID replaces 50mg dose 05/14/2016 07/12/2016 Inactive metoprolol succinate ER 50 mg tablet,extended release 24 hr RxNorm: 403882 1 Tablet(s) PO BID 04/29/2016 05/13/2016 Inactive prednisone 20 mg tablet RxNorm: 024688 1 Tablet(s) PO BID 04/22/2016 04/21/2016 Inactive prednisone 20 mg tablet RxNorm: 826589 1 Tablet(s) PO BID 04/22/2016 04/28/2016 Inactive Singulair 10 mg tablet RxNorm: 622034 Tablet(s) 1 TABLET(S) PO QHS 04/01/2016 08/26/2016 Inactive metoprolol succinate ER 25 mg tablet,extended release 24 hr RxNorm: 808697 1 Tablet(s) PO QHS for blood pressure 04/01/2016 05/13/2016 Inactive fenofibrate micronized 134 mg capsule RxNorm: 243090 TA KE ONE CAPSULE BY MOUTH DAILY 01/25/2016 01/16/2017 Inactive duloxetine 60 mg capsule,delayed release RxNorm: 895584 TAKE ONE CAPSULE BY MOUTH ONCE DAILY 01/25/2016 08/04/2016 Inactive Zocor 40 mg tablet RxNorm: 807537 TAKE ONE TABLET BY MOUTH AT B EDTIME 11/13/2015 10/16/2016 Inactive GB metformin ER 1,000 mg tablet,extended release 24hr RxNorm: 8 41907 1 Tablet(s) PO BID 10/26/2015 10/16/2016 Inactive [SAVINGS FOR NON -COVERED DRUGS -- BIN:175921, PCN: ASPROD1, Group: XXXXX, ID# [id number], Questions: . THIS IS NOT INSURANCE.] Benicar HCT 40 mg-25 mg tablet RxNorm: 480950 1 Tablet(s) PO QD 06/201511/11/2016 Inactive [SAVINGS FOR NON-COVERED JESU GS -- BIN:085987, PCN: ASPROD1, Group: XXXXX, ID# XXXXXXX, Questions: . THIS IS NOT INSURANCE.] diltiazem ER (XR/XT) 240 mg capsule,extended release,control led RxNorm: 290111 1 Capsule(s) PO QD 10/26/2015 10/15/2016 Inactive [SAVINGS FOR NO N-COVERED DRUGS -- BIN:098235, PCN: ASPROD1, Group: XXXXX, ID# XXXXXXX, Questions: . THIS IS NOT INSURANCE.] Singulair 10 mg tablet RxNorm: 828499 1 TABLET(S) PO QHS 09/18/2015 1 05/31/2015 Inactive Viagra 100 mg tablet RxNorm: 650242 1 Tablet(s) PO as needed 201511/23/2018 Inactive Singulair 10 mg tablet RxNorm: 407791 1 Tablet(s) PO QHS 08/16/2015 0 08/15/2015 Inactive Singulair 10 mg tablet RxNorm: 134335 1 Tablet(s) PO QHS 08/16/2015 0 09/14/2015 Inactive duloxetine 60 mg capsule,delayed release RxNorm: 082470 1 Capsule(s) PO QD replaces fluoxetine 08/14/2015 01/24/2016 Inactive ipratropium-albuterol 0.5 mg-3 mg(2.5 mg base)/3 mL ne bulization soln RxNorm: 7320462 1 Unit Dose INH Q4H as needed 08/14/2015 06/12/2016 Inactive prednisone 20 mg tablet RxNorm: 347499 Take 3 tabs PO o nce daily x 3 days, then 2 tabs PO once daily x 3 days and then 1 tab PO once daily x 3 days 08/09/2015 08/13/2015 Inactive Symbicort 160 mcg-4.5 mcg/actuation HFA aerosol inhaler RxNo rm: 4068558 2 Puff(s) INH BID 08/09/2015 08/13/2015 Inactive Zocor 40 mg tablet RxNorm: 043415 1 Tablet(s) PO QHS 05/23/201511/11 Inactive [AttnRPh: Saving apply/adjudicate RxGRP: SG20 RxBIN:[id number] RxPCN: ID#:[id number]] Benicar HCT 40 mg-25 mg tablet RxNorm: 870190 1 Tablet(s) PO QD 10/26/2015 Inactive [SAVINGS FOR NON-COVERED JESU GS -- BIN:583929, PCN: ASPROD1, Group: XXXXX, ID# [id number], Questions: . THIS IS NOT INSURANCE.] diltiazem ER (XR/XT) 240 mg capsule,extended release,control led RxNorm: 882804 1 Capsule(s) PO QD 04/24/2015 10/20/2015 Inactive [SAVINGS FOR NO N-COVERED DRUGS -- BIN:710728, PCN: ASPROD1, Group: XXXXX, ID# XXXXXXX, Questions: . THIS IS NOT INSURANCE.] fluoxetine 40 mg capsule RxNorm: 173011 1 Capsule(s) PO QD 04/24/20 15 08/13/2015 Inactive [SAVINGS FOR NON-COVERED JESU GS -- BIN:076746, PCN: ASPROD1, Group: XXXXX, ID# XXXXXXX, Questions: . THIS IS NOT INSURANCE.] Zocor 40 mg tablet RxNorm: 365488 TABLET(S) 1 TABLET(S) PO QHS 01/2505/23/2015 Inactive [AttnRPh: Saving apply/adjud icate RxGRP:SG20 RxBIN:[id number] RxPCN:HT ID#:[id number]] metformin ER 1,000 mg tablet,extended release 24hr RxNorm: 8 95513 1 TABLET(S) PO BID 01/29/2015 10/26/2015 Inactive [SAVINGS FOR NON -COVERED DRUGS -- BIN:586984, PCN: ASPROD1, Group: XXXXX, ID# XXXXXXX, Questions: . THIS IS NOT INSURANCE.] fenofibrate micronized 134 mg capsule RxNorm: 193070 1 CAPSULE( S) PO QD 01/23/2015 01/17/2016 Inactive fenofibrate micronized 134 mg capsule RxNorm: 826500 1 Capsule( s) PO QD 11/07/2014 01/22/2015 Inactive diltiazem ER (XR/XT) 240 mg capsule,extended release,control led RxNorm: 320720 1 Capsule(s) PO QD 10/24/2014 04/24/2015 Inactive [SAVINGS FOR NO N-COVERED DRUGS -- BIN:870639, PCN: ASPROD1, Group: XXXXX, ID# XXXXXXX, Questions: . THIS IS NOT INSURANCE.] Benicar HCT 40 mg-25 mg tablet RxNorm: 489640 1 Tablet(s) PO QD 05/201404/24/2015 Inactive [SAVINGS FOR NON-COVERED JESU GS -- BIN:358408, PCN: ASPROD1, Group: XXXXX, ID# XXXXXXX, Questions: . THIS IS NOT INSURANCE.] fluoxetine 40 mg capsule RxNorm: 710350 1 Capsule(s) PO QD 10/25/1904/24/2015 Inactive [SAVINGS FOR NON-COVERED JESU GS -- BIN:108077, PCN: ASPROD1, Group: XXXXX, ID# XXXXXXX, Questions: . THIS IS NOT INSURANCE.] azithromycin 500 mg tablet RxNorm: 179991 1 Tablet(s) PO QD 015 09/27/2014 Inactive [SAVINGS FOR NON-COVERED JESU GS -- BIN:867207, PCN: ASPROD1, Group: XXXXX, ID# XXXXXXX, Questions: . THIS IS NOT INSURANCE.] albuterol sulfate 2.5 mg/3 mL (0.083 %) solution for n ebulization RxNorm: 938641 3 Milliliter(s) INH ONE VIAL VIA NEBULIZER EVERY 4 HOURS 015 11/19/2014 Inactive [AttnRPh: Saving apply/adjudicate RxGRP: SG20 RxBIN:[id number] RxPCN: ID#:[id number]] Zocor 40 mg tablet RxNorm: 674983 TABLET(S) 1 TABLET(S ) PO QHS 1 TABLET(S) PO QHS 09/04/2014 02/21/2015 Inactive [AttnRPh: Saving apply/adjudicate RxGRP:SG20 RxBIN:[id number] RxPCN: ID#:[id number]] metformin ER 1,000 mg tablet,extended release 24hr RxNorm: 8 56835 1 Tablet(s) PO BID 08/04/2014 01/28/2015 Inactive [SAVINGS FOR NON -COVERED DRUGS -- BIN:571544, PCN: ASPROD1, Group: XXXXX, ID# XXXXXXX, Questions: . THIS IS NOT INSURANCE.] Bromfed DM 2 mg-30 mg-10 mg/5 mL syrup RxNorm: 7212781 1 -2 Teaspoon(s) PO Q4H as needed for cough 06/10/2014 06/19/2014 Inactive [SAVINGS FOR UN INSURED PATIENTS -- BIN:594305, PCN: ASPROD1, Group: AME08, ID# [id number], Process claim through [employer], for questions: . THIS IS NOT INSURANCE.] Augmentin 875 mg-125 mg tablet RxNorm: 577260 1 Tablet(s) PO Q12H 0 06/10/2014 06/19/2014 Inactive [AttnRPh: Saving apply/adjud icate RxGRP:SG20 RxBIN:[id number] RxPCN:HT ID#:[id number]] Zocor 40 mg tablet RxNorm: 221261 Tablet(s) 1 TABLET(S ) PO QHS 1 TABLET(S) PO QHS 05/25/2014 08/22/2014 Inactive [AttnRPh: Saving apply/adjudicate RxGRP:SG20 RxBIN:[id number] RxPCN:HT ID#:[id number]] fluoxetine 40 mg capsule RxNorm: 877929 1 Capsule(s) PO QD 04/29/20 14 10/24/2014 Inactive [AttnRPh: Saving apply/adjud icate RxGRP:SG20 RxBIN:[id number] RxPCN:HT ID#:[id number]] diltiazem ER (XR/XT) 240 mg capsule,extended release,control led RxNorm: 570819 1 Capsule(s) PO QD 04/29/2014 10/24/2014 Inactive [AttnRPh: Shahzad g apply/adjudicate RxGRP:SG20 RxBIN:[id number] RxPCN:HT ID#:[id number]] Benicar HCT 40 mg-25 mg tablet RxNorm: 236172 1 Tablet(s) PO QD 09/201310/24/2014 Inactive [AttnRPh: Saving apply/adjud icate RxGRP:SG20 RxBIN:[id number] RxPCN:HT ID#:[id number]] Zocor 40 mg tablet RxNorm: 963170 1 TABLET(S) PO QHS 1 TABLET(S ) PO QHS 03/07/2014 05/25/2014 Inactive [AttnRPh: Saving chelsie ly/adjudicate RxGRP:SG20 RxBIN:[id number] RxPCN:HT ID#:[id number]] Zocor 40 mg tablet RxNorm: 073526 1 Tablet(s) PO QHS 1 TABLET(S ) PO QHS 12/06/2013 03/05/2014 Inactive [AttnRPh: Saving chelsie ly/adjudicate RxGRP:SG20 RxBIN:[id number] RxPCN:HT ID#:[id number]] diltiazem ER (XR/XT) 240 mg capsule,extended release,control led RxNorm: 796312 1 Capsule(s) PO QD 10/25/2013 04/22/2014 Inactive [AttnRPh: Shahzad g apply/adjudicate RxGRP:SG20 RxBIN:[id number] RxPCN:HT ID#:[id number]] fluoxetine 40 mg capsule RxNorm: 996078 1 Capsule(s) PO QD 10/26/19 14 04/22/2014 Inactive [AttnRPh: Saving apply/adjud icate RxGRP:SG20 RxBIN:[id number] RxPCN:HT ID#:[id number]] Zocor 40 mg tablet RxNorm: 791654 1 Tablet(s) PO QHS 1 TABLET(S ) PO QHS 09/13/2013 12/06/2013 Inactive metformin ER 1,000 mg tablet,extended release 24hr RxNorm: 8 85002 Tablet(s) PO TAKE 1 TABLET BY MOUTH TWICE DAILY (REPLACES 500MG DOSE) 07/26/201303/2015 Inactive diltiazem ER (XR/XT) 240 mg capsule,extended release,control led RxNorm: 542634 1 Capsule(s) PO QD 05/03/2013 10/25/2013 Inactive fluoxetine 40 mg capsule RxNorm: 173909 1 Capsule(s) PO QD 05/03/20 13 10/25/2013 Inactive Benicar HCT 40 mg-25 mg tablet RxNorm: 032683 1 Tablet(s) PO QD 01/201304/29/2014 Inactive Zocor 40 mg tablet RxNorm: 419563 1 Tablet(s) PO QHS 12/10/201209/13 Inactive fluoxetine 40 mg capsule RxNorm: 051270 1 Capsule(s) PO QD 11/10/19 13 05/03/2013 Inactive diltiazem ER (XR/XT) 240 mg capsule,extended release,control led RxNorm: 933988 1 Capsule(s) PO QD 11/09/2012 05/03/2013 Inactive Benicar HCT 40 mg-25 mg tablet RxNorm: 323762 1 Tablet(s) PO QD 05/03/2013 Inactive metformin ER 1,000 mg tablet,extended release 24hr RxNorm: 8 41011 Tablet(s) PO TAKE 1 TABLET BY MOUTH TWICE DAILY (REPLACES 500MG DOSE) 08/05/201206/2013 Inactive Zocor 40 mg tablet RxNorm: 414472 1 Tablet(s) PO QHS 06/15/201212/09 Inactive fluoxetine 40 mg capsule RxNorm: 239768 1 Capsule(s) PO QD 05/15/20 12 11/08/2012 Inactive Neurontin 600 mg Tab RxNorm: 180544 1 Tablet(s) PO QHS 12/03/2011 Inactive metformin ER 1,000 mg tablet,extended release 24hr RxNorm: 8 29685 1 Tablet(s) PO BID replaces 500mg dose 12/03/2011 07/26/2013 Inactive Zocor 40 mg tablet RxNorm: 724422 1 Tablet(s) PO QHS 12/03/201106/15 Inactive fluoxetine 20 mg capsule RxNorm: 392723 1 Capsule(s) PO QD 12/03/19 12 05/24/2012 Inactive diltiazem ER (XR/XT) 240 mg capsule,extended release,control led RxNorm: 877220 1 Capsule(s) PO QD 11/15/2011 11/09/2012 Inactive Benicar HCT 40 mg-25 mg tablet RxNorm: 064637 1 Tablet(s) PO QD 02/16/2012 Inactive metformin ER 500 mg 24 hr Tab RxNorm: 815219 1 Tablet(s) PO BID 12/02/2011 Inactive Zocor 40 mg Tab RxNorm: 656446 1 Tablet(s) PO QHS 05/30/2011 11/25/19 12 Inactive fluoxetine 20 mg Cap RxNorm: 389727 1 Capsule(s) PO QD 05/28/2011 Inactive Neurontin 600 mg Tab RxNorm: 457359 1 Tablet(s) PO QHS 05/28/2011 Inactive Neurontin 600 mg Tab RxNorm: 592359 1 Tablet(s) PO QHS 02/22/201106/2011 Inactive Neurontin 600 mg Tab RxNorm: 403085 1 Tablet(s) PO QHS 01/14/2011 Inactive Neurontin 300 mg Cap RxNorm: 386611 1 Capsule(s) PO QHS 01/14/2011 Inactive Neurontin 600 mg Tab RxNorm: 415564 1 Tablet(s) PO QHS 01/14/2011 Inactive Medrol (Vipul) 4 mg Tabs in a Dose Pack RxNorm: 175231 Tablet(s) PO 0 01/02/2011 08/28/2011 Inactive as directed fluoxetine 20 mg Cap RxNorm: 962373 1 Capsule(s) PO QD 12/10/201006/2011 Inactive Zocor 40 mg Tab RxNorm: 986556 1 Tablet(s) PO QHS 12/03/2010 05/29/19 12 Inactive Neurontin 300 mg Cap RxNorm: 920723 1 Capsule(s) PO QHS 12/03/2010 Inactive Septra DS 800 mg-160 mg Tab RxNorm: 791843 1 Tablet(s) PO BID 11/2912/08/2010 Inactive diltiazem ER (XR/XT) 240 mg Continuous Release Cap RxNorm: 8 88024 1 Capsule(s) PO QD 11/20/2010 11/15/2011 Inactive Neurontin 300 mg Cap RxNorm: 897704 1 Capsule(s) PO QHS 11/06/2010 Inactive Neurontin 300 mg Cap RxNorm: 578854 1 Capsule(s) PO QHS 11/06/2010 Inactive Celebrex 200 mg Cap RxNorm: 629679 1 Capsule(s) PO BID 10/24/2010 Inactive fluoxetine 20 mg Cap RxNorm: 513605 1 Capsule(s) PO QD 06/07/201003/2011 Inactive Zocor 40 mg Tab RxNorm: 246644 1 Tablet(s) PO QHS 06/05/2010 12/02/19 11 Inactive Benicar HCT 40 mg-25 mg Tab RxNorm: 657741 1 Tablet(s) PO QD 200908/21/2011 Inactive Diltiazem 240 mg Continuous Release Cap RxNorm: 913881 1 Capsul e(s) PO QD 11/09/2009 09/02/2018 Inactive Avelox 400 mg Tab RxNorm: 659409 1 Tablet(s) PO QD 08/22/2009 010 Inactive ProAir HFA 90 mcg/actuation aerosol inhaler RxNorm: 577457 2 Puff(s) INH Q4H as needed No Start Date Active tramadol 50 mg tablet RxNorm: 348342 1-2 Tablet(s) PO TID as ne eded for pain No Start Date Active Tylenol Arthritis 650 mg Tab RxNorm: 4055189 2 Tablet(s) PO QD No Sta rt Date Active Celebrex 200 mg Cap RxNorm: 827572 1 Capsule(s) PO BID No Start Date 08/08/2015 Inactive Medrol (Vipul) 4 mg Tabs in a Dose Pack RxNorm: 707853 Tablet(s) PO N o Start Date 01/01/2011 Inactive as directed Promethazine-DM 6.25 mg-15 mg/5 mL Syrup RxNorm: 859219 1-2 Teaspoon(s) PO Q4H prn cough No Start Date 08/28/2011 Inactive Claritin 10 mg tablet RxNorm: 191026 1 Tablet(s) PO QD No Start Date 08/08/2015 Inactive [id number] Oral RxNorm: Oral No Start Da te 03/28/2019 Inactive Breo Ellipta 200 mcg-25 mcg/dose powder for inhalation RxNor m: 5840795 1 Puff(s) INH QD No Start Date 04/09/2017 Inactive metformin 500 mg Tab RxNorm: 704699 1 Tablet(s) PO QD No Start Date 0 08/17/2011 Inactive Diltiazem 240 mg Continuous Release Cap RxNorm: 916301 1 Capsul e(s) PO BID No Start Date 11/08/2009 Inactive fluoxetine 20 mg Cap RxNorm: 058157 1 Capsule(s) PO QD No Start Date 06/07/2010 Inactive Multivitamin & Mineral Formula Oral RxNorm: Oral No Start Da te 03/28/2019 Inactive Medrol (Vipul) 4 mg tablets in a dose pack RxNorm: 215457 Tablet(s) PO as directed No Start Date 05/28/2012 Inactive Fish Oil 1,000 mg Cap RxNorm: 1 Capsule(s) PO QD No Start Date 07/2018 Inactive Nexium 40 mg Cap RxNorm: 559496 1 Capsule(s) PO QD No Start Date 07/24 Inactive fluticasone 50 mcg/actuation nasal spray,suspension RxNorm: 9747335 2 [place] NASAL QD to each nostril No Start Date 08/03/2017 Inactive Viagra 100 mg tablet RxNorm: 207999 1 Tablet(s) PO as needed No Sta rt Date 09/17/2015 Inactive prednisone 20 mg tablet RxNorm: 718289 1 Tablet(s) PO B ID for 4 days then 1 po daily for 4 days No Start Date 11/23/2018 Inactive Benicar HCT 40 mg-25 mg Tab RxNorm: 871195 1 Tablet(s) PO QD No Sta rt [...] Date S ervice Location MICROALBUMIN URINE RANDOM 18204 MICRL MG/L 5.8 MG/L 03/2011 Unknown MICROALBUMIN URINE RANDOM 58614 XM.ALB/CRE 5.2 MG/GCR Unknown MICROALBUMIN URINE RANDOM 85823 CREAT MG/D 111 MG/DL 03/2011 Unknown MICROALBUMIN URINE RANDOM 07506 CRE/100 1.11 G/L 12/24 Unknown Procedures Procedure Codes Date FLU VACC PRSV FREE INC ANTIG 65 AND OLDER CPT-4: 58121 03/04/2019 ADMIN PNEUMOCOCCAL VACCINE CPT-4: G0009 03/04/2019 ADMIN INFLUENZA VIRUS VAC CPT-4: G0008 03/04/2019 FLU VACC PRSV FREE INC ANTIG 65 AND OLDER CPT-4: 67499 03/04/2019 PNEUMOCOCCAL VACC 23 [facility] IM CPT-4: 59297 03/04/2019 THER/PROPH/DIAG INJ SC/IM CPT-4: 45937 08/11/2018 TRIAMCINOLONE ACET INJ NOS CPT-4: J3301 08/11/2018 DEXAMETHASONE SODIUM PHOS CPT-4: J1100 08/11/2018 THER/PROPH/DIAG INJ SC/IM CPT-4: 49848 07/16/2018 METHYLPREDNISOLONE INJECTION CPT-4: J2930 07/16/2018 INFLUENZA ASSAY W/OPTIC CPT-4: 13695 07/16/2018 THER/PROPH/DIAG INJ SC/IM CPT-4: 20421 07/13/2018 TRIAMCINOLONE ACET INJ NOS CPT-4: J3301 07/13/2018 THER/PROPH/DIAG INJ SC/IM CPT-4: 48420 05/04/2018 METHYLPREDNISOLONE INJECTION CPT-4: J2930 05/04/2018 FLU VACC PRSV FREE INC ANTIG 65 AND OLDER CPT-4: 49540 02/10/2018 PNEUMOCOCCAL VACC 13 [facility] IM CPT-4: 51940 02/10/2018 ADMIN INFLUENZA VIRUS VAC CPT-4: G0008 02/10/2018 ADMIN PNEUMOCOCCAL VACCINE CPT-4: G0009 02/10/2018 THER/PROPH/DIAG INJ SC/IM CPT-4: 34008 09/09/2017 TRIAMCINOLONE ACET INJ NOS CPT-4: J3301 09/09/2017 ALBUTEROL NON-COMP UNIT CPT-4: J7613 04/10/2017 AIRWAY INHALATION TREATMENT CPT-4: 75768 04/10/2017 PRESCRIP TRANSMIT VIA ERX SY CPT-4: G8553 04/10/2017 FLU VACC PRSV FREE INC ANTIG 65 AND OLDER CPT-4: 77250 03/28/2017 ADMIN INFLUENZA VIRUS VAC CPT-4: G0008 03/28/2017 PRESCRIP TRANSMIT VIA ERX SY CPT-4: G8553 08/27/2016 PRESCRIP TRANSMIT VIA ERX SY CPT-4: G8553 06/14/2016 ALBUTEROL NON-COMP UNIT CPT-4: J7613 06/13/2016 AIRWAY INHALATION TREATMENT CPT-4: 01693 06/13/2016 PRESCRIP TRANSMIT VIA ERX SY CPT-4: [...] CPT-4: G8553 11/07/2014 THER/PROPH/DIAG INJ SC/IM CPT-4: 99230 09/21/2014 METHYLPREDNISOLONE INJECTION CPT-4: J2930 09/21/2014 PRESCRIP TRANSMIT VIA ERX SY CPT-4: G8553 09/21/2014 PRESCRIP TRANSMIT VIA ERX SY CPT-4: G8553 06/10/2014 URINALYSIS NONAUTO W/O SCOPE CPT-4: 48623 06/01/2012 PRESCRIP TRANSMIT VIA ERX SY CPT-4: G8553 05/25/2012 PRESCRIP TRANSMIT VIA ERX SY CPT-4: G8553 12/03/2011 CUR TOBACCO NON-USER CPT-4: G8457 05/30/2011 PRESCRIP TRANSMIT VIA ERX SY CPT-4: G8553 05/30/2011 URINALYSIS NONAUTO W/O SCOPE CPT-4: 26902 01/01/2011 URINE CULTURE/ COLONY COUNT CPT-4: 60854 01/01/2011 CUR TOBACCO NON-USER CPT-4: G8457 01/01/2011 [...] 1: 114/68 Code: 8480-6 BMI: 43.5 Code: 87895-6 Heart Rate 1: 52 bpm Height: 6'1" [...] 1: 136/72 Code: 8480-6 BMI: 42.7 Code: 65514-8 Heart Rate 1: 60 bpm Height: 6'1" Respiratory Rate: 22 bpm SpO2: 95% Tempera ture: 37.1 (C) / 98.7 (F) Weight: 324 lbs 02/10/2018 Blood Pressure 1: 146/78 Code: 8480-6 BMI: 42.4 Code: 52983-6 Heart Rate 1: 64 bpm Height: 6'1" Respiratory Rate: 22 bpm SpO2: 95% Tempera ture: 36.5 (C) / 97.7 (F) Weight: 321 lbs 11/05/2017 Blood Pressure 1: 128/84 Code: 8480-6 BMI: 42.9 Code: 11338-3 Heart Rate 1: 52 bpm Height: 6'1" Respiratory Rate: 22 bpm SpO2: 95% Tempera ture: 36.3 (C) / 97.3 (F) Weight: 325 lbs 09/09/2017 Blood Pressure 1: 162/90 Code: 8480-6 BMI: 42.5 Code: 32897-4 Heart Rate 1: 60 bpm Height: 6'1" Respiratory Rate: 24 bpm SpO2: 95% Tempera ture: 36.4 (C) / 97.6 (F) Weight: 322 lbs 08/07/2017 Blood Pressure 1: 152/90 Code: 8480-6 BMI: 42.2 Code: 68401-7 Heart Rate 1: 60 bpm Height: 6'1" Respiratory Rate: 26 bpm SpO2: 94% Tempera ture: 36.6 (C) / 97.8 (F) Weight: 320 lbs 08/04/2017 Blood Pressure 1: 150/86 Code: 8480-6 BMI: 42.7 Code: 38828-5 Heart Rate 1: 64 bpm Height: 6'1" Respiratory Rate: 20 bpm SpO2: 94% Tempera ture: 36.3 (C) / 97.3 (F) Weight: 324 lbs 06/04/2017 Blood Pressure 1: 164/90 Code: 8480-6 Heart Rate 1: 60 bpm Respiratory Rate: 24 bpm SpO2: 94% Temperature: 36.8 (C) / 98.3 (F) 06/02/2017 Blood Pressure 1: 162/80 Code: 8480-6 BMI: 42.9 Code: 50680-4 Heart Rate 1: 66 bpm Height: 6'1" Respiratory Rate: 22 bpm SpO2: 98% Tempera ture: 36.6 (C) / 97.8 (F) Weight: 325 lbs 05/05/2017 Blood Pressure 1: 164/94 Code: 8480-6 BMI: 41.4 Code: 07045-8 Heart Rate 1: 64 bpm Height: 6'1" Respiratory Rate: 22 bpm SpO2: 95% Tempera ture: 36.4 (C) / 97.5 (F) Weight: 314 lbs 04/10/2017 Blood Pressure 1: 136/78 Code: 8480-6 BMI: 42.0 Code: 88957-4 Heart Rate 1: 76 bpm Height: 6'1" Respiratory Rate: 24 bpm SpO2: 92% Tempera ture: 35.9 (C) / 96.7 (F) Weight: 318 lbs 02/03/2017 Blood Pressure 1: 134/82 Code: 8480-6 BMI: 41.7 Code: 81628-2 Heart Rate 1: 72 bpm Height: 6'1" Respiratory Rate: 24 bpm SpO2: 95% Tempera ture: 36.1 (C) / 97.0 (F) Weight: 316 lbs 10/30/2016 Blood Pressure 1: 126/74 Code: 8480-6 BMI: 41.3 Code: 80690-4 Heart Rate 1: 68 bpm Height: 6'1" Respiratory Rate: 20 bpm Temperature: 37 .1 (C) / 98.8 (F) Weight: 313 lbs 08/30/2016 Blood Pressure 1: 146/80 Code: 8480-6 BMI: 41.7 Code: 17711-8 Heart Rate 1: 64 bpm Height: 6'1" Respiratory Rate: 24 bpm SpO2: 94% Tempera ture: 36.6 (C) / 97.8 (F) Weight: 316 lbs 08/27/2016 Blood Pressure 1: 124/78 Code: 8480-6 Heart Rate 1: 66 bpm Height: 6'2" Respiratory Rate: 18 bpm SpO2: 94% Temperature: 36.6 (C) / 97.8 (F) Weight: 07/02/2016 Blood Pressure 1: 126/78 Code: 8480-6 BMI: 41.4 Code: 64715-6 Heart Rate 1: 68 bpm Height: 6'1" Respiratory Rate: 24 bpm SpO2: 94% Tempera ture: 36.6 (C) / 97.8 (F) Weight: 314 lbs 06/14/2016 Blood Pressure 1: 146/82 Code: 8480-6 Heart Rate 1: 80 bpm Respiratory Rate: 20 bpm SpO2: 95% Temperature: 37.3 (C) / 99.2 (F) 06/13/2016 Blood Pressure 1: 146/84 Code: 8480-6 BMI: 40.5 Code: 02271-6 Heart Rate 1: 66 bpm Height: 6'1" Respiratory Rate: 28 bpm SpO2: 93% Tempera ture: 35.8 (C) / 96.4 (F) Weight: 307 lbs 05/14/2016 Blood Pressure 1: 146/90 Code: 8480-6 BMI: 41.2 Code: 88040-5 Heart Rate 1: 68 bpm Height: 6'1" Respiratory Rate: 26 bpm Temperature: 36 .8 (C) / 98.2 (F) Weight: 312 lbs 04/29/2016 Blood Pressure 1: 152/90 Code: 8480-6 BMI: 41.0 Code: 45178-6 Heart Rate 1: 68 bpm Height: 6'1" Respiratory Rate: 26 bpm SpO2: 94% Tempera ture: 36.1 (C) / 96.9 (F) Weight: 311 lbs 04/22/2016 Blood Pressure 1: 152/94 Code: 8480-6 BMI: 40.9 Code: 59747-3 Heart Rate 1: 68 bpm Height: 6'1" Respiratory Rate: 24 bpm SpO2: 94% Tempera ture: 36.2 (C) / 97.2 (F) Weight: 310 lbs 04/01/2016 Blood Pressure 1: 156/78 Code: 8480-6 BMI: 40.6 Code: 70820-4 Heart Rate 1: 84 bpm Height: 6'1" Respiratory Rate: 22 bpm SpO2: 95% Tempera ture: 37.1 (C) / 98.7 (F) Weight: 308 lbs 11/30/2015 Blood Pressure 1: 142/80 Code: 8480-6 BMI: 40.5 Code: 53574-9 Heart Rate 1: 88 bpm Height: 6'1" Respiratory Rate: 22 bpm Temperature: 36 .2 (C) / 97.2 (F) Weight: 307 lbs 08/29/2015 Blood Pressure 1: 132/70 Code: 8480-6 BMI: 40.0 Code: 19481-1 Heart Rate 1: 76 bpm Height: 6'1" Respiratory Rate: 24 bpm SpO2: 96% Tempera ture: 36.7 (C) / 98.0 (F) Weight: 303 lbs 08/14/2015 Blood Pressure 1: 126/80 Code: 8480-6 BMI: 39.4 Code: 87202-3 Heart Rate 1: 92 bpm Height: 6'1" Respiratory Rate: 24 bpm SpO2: 94% Tempera ture: 37.8 (C) / 100.0 (F) Weight: 299 lbs 08/09/2015 Blood Pressure 1: 146/82 Code: 8480-6 Heart Rate 1: 82 bpm Respiratory Rate: 22 bpm SpO2: 93% Temperature: 35.9 (C) / 96.6 (F) We ight: 310 lbs 05/22/2015 Blood Pressure 1: 156/76 Code: 8480-6 BMI: 41.0 Code: 84049-2 Heart Rate 1: 100 bpm Height: 6'1" Respiratory Rate: 22 bpm Temperature: 37 .2 (C) / 98.9 (F) Weight: 311 lbs 02/13/2015 Blood Pressure 1: 166/90 Code: 8480-6 BMI: 41.2 Code: 43459-3 Heart Rate 1: 72 bpm Height: 6'1" Respiratory Rate: 24 bpm SpO2: 93% Tempera ture: 36.9 (C) / 98.5 (F) Weight: 312 lbs 11/07/2014 Blood Pressure 1: 134/70 Code: 8480-6 BMI: 40.5 Code: 02811-4 Heart Rate 1: 76 bpm Height: 6'1" Respiratory Rate: 24 bpm Temperature: 36 .9 (C) / 98.4 (F) Weight: 307 lbs 10/04/2014 Blood Pressure 1: 144/86 Code: 8480-6 BMI: 40.1 Code: 06921-5 Heart Rate 1: 76 bpm Height: 6'1" Respiratory Rate: 28 bpm Temperature: 36 .6 (C) / 97.9 (F) Weight: 304 lbs 09/22/2014 Blood Pressure 1: 142/80 Code: 8480-6 BMI: 40.0 Code: 32511-2 Heart Rate 1: 80 bpm Height: 6'1" Respiratory Rate: 22 bpm SpO2: 96% Tempera ture: 36.6 (C) / 97.8 (F) Weight: 303 lbs 09/21/2014 Blood Pressure 1: 160/66 Code: 8480-6 BMI: 40.0 Code: 33777-4 Heart Rate 1: 90 bpm Height: 6'1" Respiratory Rate: 26 bpm SpO2: 94% Tempera ture: 35.7 (C) / 96.2 (F) Weight: 303 lbs 06/28/2014 Blood Pressure 1: 132/80 Code: 8480-6 BMI: 41.0 Code: 04109-8 Heart Rate 1: 64 bpm Height: 6' Respiratory Rate: 20 bpm Temperature: 36 .7 (C) / 98.0 (F) Weight: 302 lbs 06/10/2014 Blood Pressure 1: 152/70 Code: 8480-6 BMI: 41.1 Code: 12209-2 Heart Rate 1: 76 bpm Height: 6' Respiratory Rate: 20 bpm Temperature: 36 .6 (C) / 97.8 (F) Weight: 303 lbs 03/29/2014 Blood Pressure 1: 132/78 Code: 8480-6 BMI: 40.6 Code: 23367-3 Heart Rate 1: 84 bpm Height: 6' Respiratory Rate: 22 bpm Temperature: 37 .1 (C) / 98.8 (F) Weight: 299 lbs 11/30/2013 Blood Pressure 1: 136/84 Code: 8480-6 BMI: 39.2 Code: 35764-7 Heart Rate 1: 76 bpm Height: 6' Respiratory Rate: 20 bpm Temperature: 36 .8 (C) / 98.2 (F) Weight: 289 lbs 08/03/2013 Blood Pressure 1: 144/80 Code: 8480-6 Heart Rate 1: 86 bpm Respiratory Rate: 20 bpm Temperature: 36.6 (C) / 97.8 (F) Weight: 296 lbs 04/06/2013 Blood Pressure 1: 142/90 Code: 8480-6 BMI: 40.3 Code: 01029-9 Heart Rate 1: 88 bpm Height: 6' Respiratory Rate: 20 bpm Temperature: 36 .6 (C) / 97.8 (F) Weight: 297 lbs 12/01/2012 Blood Pressure 1: 124/78 Code: 8480-6 BMI: 38.7 Code: 85541-2 Heart Rate 1: 76 bpm Height: 6' Respiratory Rate: 20 bpm Temperature: 37 .2 (C) / 98.9 (F) Weight: 285 lbs 08/04/2012 Blood Pressure 1: 128/80 Code: 8480-6 BMI: 38.2 Code: 23780-5 Heart Rate 1: 76 bpm Height: 6' Respiratory Rate: 20 bpm Temperature: 37 .0 (C) / 98.6 (F) Weight: 282 lbs 05/29/2012 Blood Pressure 1: 138/78 Code: 8480-6 BMI: 36.6 Code: 07921-4 Heart Rate 1: 66 bpm Height: 6' Temperature: 36.7 (C) / 98.1 (F) Weight: 270 lbs 05/25/2012 Blood Pressure 1: 128/72 Code: 8480-6 BMI: 39.9 Code: 50376-9 Heart Rate 1: 74 bpm Height: 6' Temperature: 36.1 (C) / 97.0 (F) Weight: 294 lbs 04/07/2012 Blood Pressure 1: 124/76 Code: 8480-6 BMI: 39.9 Code: 85248-5 Heart Rate 1: 72 bpm Height: 6' Respiratory Rate: 20 bpm Temperature: 36 .9 (C) / 98.5 (F) Weight: 294 lbs 12/16/2011 Blood Pressure 1: 128/80 Code: 8480-6 BMI: 40.8 Code: 24363-2 Heart Rate 1: 74 bpm Height: 6' Temperature: 36.6 (C) / 97.8 (F) Weight: 301 lbs 12/03/2011 Blood Pressure 1: 132/76 Code: 8480-6 BMI: 40.8 Code: 85648-3 Heart Rate 1: 68 bpm Height: 6' Respiratory Rate: 20 bpm Temperature: 36 .8 (C) / 98.2 (F) Weight: 301 lbs 08/29/2011 Blood Pressure 1: 140/68 Code: 8480-6 BMI: 40.8 Code: 85755-3 Heart Rate 1: 80 bpm Height: 6' Respiratory Rate: 20 bpm Temperature: 36 .4 (C) / 97.6 (F) Weight: 301 lbs 05/30/2011 Blood Pressure 1: 134/82 Code: 8480-6 BMI: 41.5 Code: 38203-2 Heart Rate 1: 76 bpm Height: 6' [...] 1: 126/72 Code: 8480-6 BMI: 41.2 Code: 49556-5 Heart Rate 1: 76 bpm Height: 6' [...] 1: 152/90 Code: 8480-6 BMI: 37.7 Code: 45281-1 Heart Rate 1: 92 bpm Height: 6'1" [...] dm Encounters Encounter Performer Location Codes Date ([id number]) OFFICE/OUTPATIENT VISIT EST Diagnosis: Advanced chronic obstructive pulmonary disease[ICD10: J44.9] 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] Neela HYMAN DO [facility] CPT-4: 95303 05/10/2019 ([id number]) OFFICE/OUTPATIENT VISIT EST Diagnosis: Chronic obstructive pulmonary disease with (acute) exacerbation[ICD10: J44.1] Diagnosis: Hypokalemia[ICD10: E87.6] 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] Neelasabina HYMAN DO [facility] CPT-4: 08789 03/29/2019 ([id number]) NURSE/OUTPATIENT VISIT EST Diagnosis: PNEUMOCOCCAL VACCINE[ICD10: Z23] Neela HYMAN DO [facility] CPT-4: 61973 03/04/2019 ([id number]) OFFICE/OUTPATIENT VISIT EST Diagnosis: Chronic obstructive pulmonary disease with (acute) exacerbation[ICD10: J44.1] Diagnosis: Other nonspecific abnormal finding of lung field[ICD10: R91.8] Neela HYMAN DO [facility] CPT-4: 63249 01/05/2019 ([id number]) OFFICE/OUTPATIENT VISIT EST Diagnosis: Solitary pulmonary nodule[ICD10: R91.1] 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] Diagnosis: Tinea corporis[ICD10: B35.4] Neela HYMAN DO [facility] CPT-4: 89426 12/09/2018 ([id number]) OFFICE/OUTPATIENT VISIT EST Diagnosis: COUGH[ICD10: R05] Diagnosis: Chronic obstructive pulmonary disease, unspecified[ICD10: J44.9] Diagnosis: Other disorders of lung[ICD10: J98.4] Diagnosis: Other nonspecific abnormal finding of lung field[ICD10: R91.8] Neela HYMAN DO [facility] CPT-4: 83111 11/24/2018 ([id number]) OFFICE/OUTPATIENT VISIT EST Diagnosis: Pneumonia, unspecified organism[ICD10: J18.9] Amita Henderson NEELA HYMAN DO [facility] CPT-4: 93475 09/16/2018 ([id number]) OFFICE/OUTPATIENT VISIT EST Diagnosis: Pneumonia, unspecified organism[ICD10: J18.9] Neela HYMAN DO [facility] CPT-4: 34289 09/03/2018 ([id number]) OFFICE/OUTPATIENT VISIT EST Diagnosis: Personal history of pneumonia (recurrent)[ICD10: Z87.01] Diagnosis: Cough[ICD10: R05] Diagnosis: Essential (primary) hypertension[ICD10: I10] Diagnosis: Type 2 diabetes mellitus with hyperglycemia[ICD10: E11.65] Amitacalvin MIRZALINE Octavio HYMAN [employer] [facility] [employer] [facility] [employer] [facility] CPT-4: 98133 08/27/2018 OFFICE/OUTPATIENT VISIT EST Diagnosis: Pneumonia, unspecified organism[ICD10: J18.9] Diagnosis: Chronic obstructive pulmonary disease with (acute) exacerbation[ICD10: J44.1] Diagnosis: Other specified symptoms and signs involving the circulatory and respiratory systems[ICD10: R09.89] Diagnosis: Essential (primary) hypertension[ICD10: I10] Amita Santiago NEELA Octavio ZHANG [facility] [employer] [facility] [employer] [facility] CPT-4: 38531 08/13/2018 OFFICE/OUTPATIENT VISIT EST Diagnosis: Pneumonia, unspecified organism[ICD10: J18.9] Diagnosis: Other specified symptoms and signs involving the circulatory and respiratory systems[ICD10: R09.89] Amita Santiago MIRZALINE JulissaMendez VICENTE [facility] [employer] [facility] CPT-4: 12441 08/11/2018 ([id number]) OFFICE/OUTPATIENT VISIT EST Diagnosis: Dyspnea, unspecified[ICD10: R06.00] Diagnosis: Chronic obstructive pulmonary disease with (acute) exacerbation[ICD10: J44.1] Diagnosis: Pneumonia, unspecified organism[ICD10: J18.9] Amita Santiagolincoln MURILLO Octavio HYMAN [employer] [facility] [employer] [facility] [employer] [facility] CPT-4: 57809 07/16/2018 ([id number]) OFFICE/OUTPATIENT VISIT EST Diagnosis: Acute bronchitis due to other specified organisms[ICD10: J20.8] Diagnosis: Cough[ICD10: R05] Amita Santiagodebbie MURILLO Octavio ZHANG [employer] [facility] [employer] [facility] [employer] [facility] T-4: 97731 07/13/2018 ([id number]) OFFICE/OUTPATIENT VISIT EST Diagnosis: Essential (primary) hypertension[ICD10: I10] Diagnosis: Chronic obstructive pulmonary disease, unspecified[ICD10: J44.9] Diagnosis: Type 2 diabetes mellitus with hyperglycemia[ICD10: E11.65] Diagnosis: Mixed hyperlipidemia[ICD10: E78.2] Neela STERLING [employer] VICENTE [facility] [employer] [facility] [employer] [facility] CPT-4: 78877 06/03/2018 ([id number]) OFFICE/OUTPATIENT VISIT EST Diagnosis: Chronic obstructive pulmonary disease, unspecified[ICD10: J44.9] Gely Katiuskakrystal HYMAN DO [facility] CPT-4: 50406 05/04/2018 ([id number]) OFFICE/OUTPATIENT VISIT EST Diagnosis: Essential (primary) hypertension[ICD10: I10] Diagnosis: Localized edema[ICD10: R60.0] Neela HYMAN DO [facility] CPT-4: 89368 03/03/2018 ([id number]) OFFICE/OUTPATIENT VISIT EST Diagnosis: Localized edema[ICD10: R60.0] Neela HYMAN DO [facility] CPT-4: 61843 02/17/2018 ([id number]) OFFICE/OUTPATIENT VISIT EST Diagnosis: FLU VACCINE[ICD10: Z23] Diagnosis: PNEUMOCOCCAL VACCINE[ICD10: Z23] Diagnosis: Type 2 diabetes mellitus without complications[ICD10: E11.9] Diagnosis: Mixed hyperlipidemia[ICD10: E78.2] Diagnosis: Essential (primary) hypertension[ICD10: I10] Diagnosis: Localized edema[ICD10: R60.0] Diagnosis: Chronic obstructive pulmonary disease, unspecified[ICD10: J44.9] Neela HYMAN DO [facility] CPT-4: 69838 02/10/2018 ([id number]) OFFICE/OUTPATIENT VISIT EST Diagnosis: Type 2 diabetes mellitus with hyperglycemia[ICD10: E11.65] Diagnosis: Mixed hyperlipidemia[ICD10: E78.2] Diagnosis: Essential (primary) hypertension[ICD10: I10] Diagnosis: Chronic obstructive pulmonary disease, unspecified[ICD10: J44.9] Diagnosis: Cutaneous abscess of back [any part, except buttock][ICD10: L02.212] Neela HYMAN DO [facility] CPT-4: 93440 11/05/2017 ([id number]) OFFICE/OUTPATIENT VISIT EST Diagnosis: Allergic urticaria[ICD10: L50.0] Gely HYMAN DO [facility] CPT-4: 02847 09/09/2017 ([id number]) OFFICE/OUTPATIENT VISIT EST Diagnosis: Generalized enlarged lymph nodes[ICD10: R59.1] Diagnosis: Acute gastritis without bleeding[ICD10: K29.00] Gely HYMAN DO [facility] CPT-4: 26865 08/07/2017 ([id number]) OFFICE/OUTPATIENT VISIT EST Diagnosis: Type 2 diabetes mellitus without complications[ICD10: E11.9] Diagnosis: Mixed hyperlipidemia[ICD10: E78.2] Diagnosis: Essential (primary) hypertension[ICD10: I10] Neela HYMAN [facility] CPT-4: 92489 08/04/2017 ([id number]) OFFICE/OUTPATIENT VISIT EST Diagnosis: Zoster without complications[ICD10: B02.9] Diagnosis: Acute sialoadenitis[ICD10: K11.21] Gely HYMAN DO [facility] CPT-4: 77407 06/04/2017 OFFICE/OUTPATIENT VISIT EST Diagnosis: Zoster without complications[ICD10: B02.9] Diagnosis: Acute sialoadenitis[ICD10: K11.21] Gely ZHANG [facility] [employer] [facility] CPT-4: 78781 06/02/2017 ([id number]) OFFICE/OUTPATIENT VISIT EST Diagnosis: Type 2 diabetes mellitus without complications[ICD10: E11.9] Diagnosis: Mixed hyperlipidemia[ICD10: E78.2] Diagnosis: Essential (primary) hypertension[ICD10: I10] Diagnosis: Chronic obstructive pulmonary disease, unspecified[ICD10: J44.9] [facility] CPT-[facility]: 91650 05/05/2017 OFFICE/OUTPATIENT VISIT EST Diagnosis: Chronic obstructive pulmonary disease with acute lower respiratory infection[ICD10: J44.0] Diagnosis: Impacted cerumen, bilateral[ICD10: H61.23] Gely HYMAN [facility] [employer] [facility] CPT-4: 23290 04/10/2017 ([id number]) OFFICE/OUTPATIENT VISIT EST Diagnosis: FLU VACCINE[ICD10: Z23] Neela BUI [facility] CPT-4: 77448 03/28/2017 ([id number]) OFFICE/OUTPATIENT VISIT EST Diagnosis: Type 2 diabetes mellitus without complications[ICD10: E11.9] Diagnosis: Mixed hyperlipidemia[ICD10: E78.2] Diagnosis: Essential (primary) hypertension[ICD10: I10] Diagnosis: Chronic obstructive pulmonary disease, unspecified[ICD10: J44.9] Neela HYMAN DO [facility] CPT-4: 74269 02/03/2017 ([id number]) OFFICE/OUTPATIENT VISIT EST Diagnosis: Type 2 diabetes mellitus with hyperglycemia[ICD10: E11.65] Diagnosis: Mixed hyperlipidemia[ICD10: E78.2] Diagnosis: Essential (primary) hypertension[ICD10: I10] Diagnosis: Chronic obstructive pulmonary disease, unspecified[ICD10: J44.9] Neela HYMAN DO [facility] CPT-4: 19086 10/30/2016 ([id number]) NO CHARGE Diagnosis: Acute bronchitis, unspecified[ICD10: J20.9] Sammi HYMAN DO [facility] CPT-4: 48967 08/30/2016 ([id number]) OFFICE/OUTPATIENT VISIT EST Diagnosis: Acute bronchitis, unspecified[ICD10: J20.9] Diagnosis: Other seasonal allergic rhinitis[ICD10: J30.2] Sammi HYMAN [facility] [employer] [facility] CPT-4: 68696 08/27/2016 ([id number]) OFFICE/OUTPATIENT VISIT EST Diagnosis: Type 2 diabetes mellitus without complications[ICD10: E11.9] Diagnosis: Mixed hyperlipidemia[ICD10: E78.2] Diagnosis: Essential (primary) hypertension[ICD10: I10] Neela HYMAN DO [facility] CPT-4: 71612 07/02/2016 ([id number]) OFFICE/OUTPATIENT VISIT EST Diagnosis: Acute bronchitis, unspecified[ICD10: J20.9] Sammi HYMAN [facility] [employer] [employer] [facility] CPT-4: 52864 06/14/2016 ([id number]) OFFICE/OUTPATIENT VISIT EST Diagnosis: Acute bronchitis, unspecified[ICD10: J20.9] Sammi HYMAN [facility] CPT-4: 64294 06/13/2016 ([id number]) OFFICE/OUTPATIENT VISIT EST Diagnosis: Essential (primary) hypertension[ICD10: I10] Neela HYMAN [facility] CPT-4: 73767 05/14/2016 ([id number]) OFFICE/OUTPATIENT VISIT EST Diagnosis: Essential (primary) hypertension[ICD10: I10] Neela HYMAN [facility] CPT-4: 95749 04/29/2016 ([id number]) OFFICE/OUTPATIENT VISIT EST Diagnosis: Unspecified abdominal pain[ICD10: R10.9] Diagnosis: Left lower quadrant pain[ICD10: R10.32] Diagnosis: Left upper quadrant pain[ICD10: R10.12] Diagnosis: Essential (primary) hypertension[ICD10: I10] Neela HYMAN DO [facility] CPT-4: 68930 04/22/2016 ([id number]) OFFICE/OUTPATIENT VISIT EST Diagnosis: Type 2 diabetes mellitus without complications[ICD10: E11.9] Diagnosis: Mixed hyperlipidemia[ICD10: E78.2] Diagnosis: Essential (primary) hypertension[ICD10: I10] Neela HYMAN [facility] [employer] [employer] [facility] CPT-4: 78009 04/01/2016 ([id number]) OFFICE/OUTPATIENT VISIT EST Diagnosis: Type 2 diabetes mellitus with hyperglycemia[ICD10: E11.65] Diagnosis: Mixed hyperlipidemia[ICD10: E78.2] Diagnosis: Essential (primary) hypertension[ICD10: I10] Neela HYMAN [facility] [employer] CPT-4: 90856 11/30/2015 ([id number]) OFFICE/OUTPATIENT VISIT EST Diagnosis: Type 2 diabetes mellitus with diabetic neuropathy, unspecified[ICD10: E11.40] Diagnosis: Essential (primary) hypertension[ICD10: I10] Diagnosis: Mixed hyperlipidemia[ICD10: E78.2] Neela HYMAN [facility] [employer] [employer] [facility] CPT-4: 45443 08/29/2015 ([id number]) OFFICE/OUTPATIENT VISIT EST Diagnosis: COUGH[ICD10: R05] Diagnosis: Wheezing[ICD10: R06.2] Diagnosis: Type 2 diabetes mellitus with diabetic neuropathy, unspecified[ICD10: E11.40] Neela HYMAN [facility] [employer] [facility] CPT-4: 52074 08/14/2015 ([id number]) OFFICE/OUTPATIENT VISIT EST Diagnosis: Other seasonal allergic rhinitis[ICD10: J30.2] Diagnosis: Dyspnea, unspecified[ICD10: R06.00] Diagnosis: Wheezing[ICD10: R06.2] Sammi Najera NEELA JulissaMendez YENNI ARTHUR Yesenia CPT-4: 43624 08/09/2015 ([id number]) OFFICE/OUTPATIENT VISIT EST Diagnosis: Essential (primary) hypertension[ICD10: I10] Diagnosis: Type 2 diabetes mellitus with hyperglycemia[ICD10: E11.65] Diagnosis: Mixed hyperlipidemia[ICD10: E78.2] Neela STERLING Octavio HYMAN DO [facility] CPT-4: 25960 05/22/2015 ([id number]) OFFICE/OUTPATIENT VISIT EST Diagnosis: DM W/O COMPLICATION TYPE II[ICD9: 250.00] Diagnosis: - I - HYPERTENSION[ICD9: 401.9] Diagnosis: - I - HYPERLIPIDEMIA NEC/NOS[ICD9: 272.4] Diagnosis: Left hand paresthesia[ICD9: 782.0] Neela STERLING JulissaMendez YENNI ARTHUR [facility] CPT-4: 60427 02/13/2015 ([id number]) OFFICE/OUTPATIENT VISIT EST Diagnosis: HYPERLIPIDEMIA NEC/NOS[ICD9: 272.4] Diagnosis: DM W/O COMPLICATION TYPE II[ICD9: 250.00] Neela MURILLO JulissaMendez YENNI [employer] [facility] [employer] [facility] CPT-4: 60424 11/07/2014 ([id number]) OFFICE/OUTPATIENT VISIT EST Diagnosis: ALLERGIC RHINITIS[ICD9: 477.9] Diagnosis: WHEEZING[ICD9: 786.07] Neela Cunningham SERGEMANOLO Gerald [employer] [employer] [facility] [employer] [facility] CPT-4: 45119 10/04/2014 ([id number]) OFFICE/OUTPATIENT VISIT EST Diagnosis: BRONCHITIS, ACUTE[ICD9: 466.0] Diagnosis: WHEEZING[ICD9: 786.07] Loren MURILLO JulissaMendez ABY Duarte [employer] [facility] [employer] [facility] [employer] [facility] CPT-4: 08140 09/22/2014 ([id number]) OFFICE/OUTPATIENT VISIT EST Diagnosis: DYSPNEA[ICD9: 786.09] Diagnosis: WHEEZING[ICD9: 786.07] Diagnosis: Arrhythmia[ICD9: 427.9] Loren Cunningham SERGEUSHA HAO [employer] [facility] CPT-4: 75944 09/21/2014 ([id number]) OFFICE/OUTPATIENT VISIT EST Diagnosis: DM W/O COMPLICATION TYPE II, 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] Diagnosis: - I - HYPERLIPIDEMIA NEC/NOS[ICD9: 272.4] Diagnosis: - I - HYPERTENSION[ICD9: 401.9] Neela MURILLO JulissaMendez [facility] CPT-4: 79863 06/28/2014 OFFICE/OUTPATIENT VISIT EST Diagnosis: SINUSITIS, ACUTE[ICD9: 461.9] Diagnosis: OTITIS MEDIA NOS[ICD9: 382.9] Sarah OchoaDanie MURILLO JulissaMendez [facility] CPT-4: 69585 06/10/2014 ([id number]) OFFICE/OUTPATIENT VISIT EST Diagnosis: DM W/O COMPLICATION TYPE II[ICD9: 250.00] Diagnosis: - I - HYPERLIPIDEMIA NEC/NOS[ICD9: 272.4] Diagnosis: - I - HYPERTENSION[ICD9: 401.9] Neela Sergechristina MURILLO JulissaMendez [facility] CPT-4: 05949 03/29/2014 ([id number]) OFFICE/OUTPATIENT VISIT EST Diagnosis: DM W/O COMPLICATION TYPE II[ICD9: 250.00] Diagnosis: - I - HYPERTENSION[ICD9: 401.9] Diagnosis: - I - HYPERLIPIDEMIA NEC/NOS[ICD9: 272.4] Diagnosis: Hand lesion[ICD9: 709.9] Neela MADRIGAL [facility] CPT-4: 50367 11/30/2013 ([id number]) OFFICE/OUTPATIENT VISIT EST Diagnosis: DM W/O COMPLICATION TYPE II[ICD9: 250.00] Diagnosis: HYPERLIPIDEMIA NEC/NOS[ICD9: 272.4] Diagnosis: HYPERTENSION[ICD9: 401.9] Neela Cunningham SERGE CHRISTINA [facility] CPT-4: 42035 08/03/2013 ([id number]) OFFICE/OUTPATIENT VISIT EST Diagnosis: DM W/O COMPLICATION TYPE II, 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] Diagnosis: HYPERTENSION[ICD9: 401.9] Diagnosis: HYPERLIPIDEMIA NEC/NOS[ICD9: 272.4] Neela Cunningham [facility] CPT-4: 38832 04/06/2013 ([id number]) OFFICE/OUTPATIENT VISIT EST Diagnosis: DM W/O COMPLICATION TYPE II[ICD9: 250.00] Diagnosis: HYPERLIPIDEMIA NEC/NOS[ICD9: 272.4] Diagnosis: HYPERTENSION[ICD9: 401.9] Neela Zhanghao NEELA JulissaMendez SERGE VASQUEZ [facility] CPT-4: 09107 12/01/2012 ([id number]) OFFICE/OUTPATIENT VISIT EST Diagnosis: DM W/O COMPLICATION TYPE II[ICD9: 250.00] Diagnosis: HYPERTENSION[ICD9: 401.9] Diagnosis: HYPERLIPIDEMIA NEC/NOS[ICD9: 272.4] Neela GREGORIO SMendez [facility] CPT-4: 23333 08/04/2012 ([id number]) OFFICE/OUTPATIENT VISIT EST Diagnosis: URINARY FREQUENCY[ICD9: 788.41] Neela MURILLO JulissaMendez [facility] CPT-4: 52568 06/01/2012 OFFICE/OUTPATIENT VISIT EST Diagnosis: Agitation[ICD9: 307.9] Diagnosis: Frequent urination[ICD9: 788.41] Janet Cunningham [facility] CPT-4: 73730 05/29/2012 OFFICE/OUTPATIENT VISIT EST Diagnosis: SINUSITIS, ACUTE[ICD9: 461.9] Diagnosis: OTALGIA[ICD9: 388.70] Neela Cunningham [facility] CPT-4: 42540 05/25/2012 OFFICE/OUTPATIENT VISIT EST Diagnosis: DM W/O COMPLICATION TYPE II, 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] Diagnosis: HYPERTENSION[ICD9: 401.9] Diagnosis: HYPERLIPIDEMIA NEC/NOS[ICD9: 272.4] Neela GREGORIO SMendez [facility] CPT-4: 62400 04/07/2012 OFFICE/OUTPATIENT VISIT EST Diagnosis: FINGER INJURY[ICD9: 959.5] Janet Cunningham [facility] CPT-4: 05162 12/16/2011 ([id number]) OFFICE/OUTPATIENT VISIT EST Diagnosis: DM W/O COMPLICATION TYPE II, 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] Diagnosis: HYPERTENSION[ICD9: 401.9] Diagnosis: HYPERLIPIDEMIA NEC/NOS[ICD9: 272.4] Neela ANNJYOTIYesenia GREGORIO S. ORENDER DO [facility] CPT-4: 85342 12/03/2011 ([id number]) OFFICE/OUTPATIENT VISIT EST Diagnosis: DM W/O COMPLICATION TYPE II[ICD9: 250.00] Diagnosis: HYPERLIPIDEMIA NEC/NOS[ICD9: 272.4] Diagnosis: HYPERTENSION[ICD9: 401.9] Neela MURILLO S. ORE NDER DO [facility] CPT-4: 31303 08/29/2011 OFFICE/OUTPATIENT VISIT EST Diagnosis: DM W/O COMPLICATION TYPE II[ICD9: 250.00] Diagnosis: HYPERLIPIDEMIA NEC/NOS[ICD9: 272.4] Diagnosis: HYPERTENSION[ICD9: 401.9] Neela MURILLO S. ORE NDER DO [facility] CPT-4: 33716 05/30/2011 OFFICE/OUTPATIENT VISIT EST Diagnosis: SKIN SENSATION DISTURB[ICD9: 782.0] Neela Sergeushahao ARMAAN DARLINE S. ORENDER DO [facility] CPT-4: 71764 01/29/2011 OFFICE/OUTPATIENT VISIT EST Diagnosis: SKIN SENSATION DISTURB[ICD9: 782.0] Neela Sergeushahao ANNJYOTIYesenia GREGORIO S. ORENDER DO [facility] CPT-4: 89824 01/14/2011 OFFICE/OUTPATIENT VISIT EST Neela Yenni MURILLO S. ORE NDER DO [facility] CPT- 4: 89776 01/01/2011 OFFICE/OUTPATIENT VISIT EST Neela Yenni MIRZALINE S. ORE NDER DO [facility] CPT- 4: 30873 11/29/2010 ([id number]) OFFICE/OUTPATIENT VISIT EST Neela Sergechristina HORAN S. ORENDER DO [facility] CPT-4: 79523 08/28/2010 ([id number]) OFFICE/OUTPATIENT VISIT, EST Neela Sergeushahao SETH WILDE S. ORENDER DO [facility] CPT-4: 54104 06/05/2010 ([id number]) OFFICE/OUTPATIENT VISIT, EST Neela Sergechristina WILDE S. ORENDER DO [facility] CPT-4: 64237 02/05/2010 ([id number]) OFFICE/OUTPATIENT VISIT, EST Neela Sergechristina WILDE S. ORENDER DO [facility] CPT-4: 73971 10/09/2009 ([id number]) OFFICE/OUTPATIENT VISIT, EST Neela [facility] CPT-4: 27843 08/22/2009 Plan of Care Planned Activity Notes Codes Status Date Visit Diagnosis Plan: Advanced chronic obstructive pul monary disease Discussion: Continue oxygen and pulmonary rehab Follow Up: 3 months ICD-9 : 496 ICD-10 : J44.9 05/10/2019 Visit Diagnosis Plan: Lymphoma involving lung Discussi on: Doing weekly lab and chemo ICD-9 : 202.82 ICD-10 : C85.99 05/10/2019 Appointment: Neela Hyman WPtel: [address] [place], [place] [phone] FOLLOW UP 05/10/2019 Appointment: Neela Hyman WPtel: [address] [place], [place] [phone] [place] he called 04/14/19-- he was at [...] : E87.6 03/29/2019 Appointment: Neela Hyman WPtel: [address] [place], [place] [phone] Hospital Follow Up 03/29/2019 Appointment: Neela Hyman WPtel: [address] [place], [place] [phone] [place] INJECTION 03/04/2019 Visit Diagnosis Plan: Chronic obstructiv e pulmonary disease with (acute) exacerbation Discussion: Increase SVNS with duoneb to QID Prednisone taper ICD-9 : 491.21 ICD-10 : J44.1 01/05/2019 Visit Diagnosis Plan: Other nonspecific abnormal findi ng of lung field Discussion: Referral to pulmonology--will likely need bronchoscopy--path results discussed ICD-9 : 786.6 ICD-10 : R91.8 01/05/2019 Appointment: Neela Hyman WPtel: [address] [place], [place] [phone] [place] FOLLOW UP 01/05/2019 Patient Education: prednisone- [employer] Coupon [id number] https://www.[employer]/resources/getResource/61/[email or web address]-ui Completed 01/05/2019 Care Plan: Referral Order SNOMED-CT : 30 [id number] Pending 01/05/2019 Appointment: Neela Hyman WPtel: [address] [place], [place] [phone] [place] CANCELED 12/21/2018 Visit Diagnosis Plan: Tinea corporis Discussion: Diflu can--hold simvastatin and fenofibrate while taking ICD-9 : 110.5 ICD-10 : B35.4 12/09/2018 Visit Diagnosis Plan: Solitary pulmonary nodule Discus esmer: CT guided needle biopsy of RUL lung mass ICD-9 : 793.11 ICD-10 : R91.1 12/09/2018 Appointment: Neela Hyman WPtel: [address] [place], [place] [phone] [place] FOLLOW UP 12/09/2018 Appointment: Gely Harp [address] [place] [address] [place] NO SHOW 12/01/2018 Visit Diagnosis Plan: [...] : J44.9 11/24/2018 Appointment: Neela Hyman WPtel: [address] [place] [address] [place] FOLLOW UP 11/24/2018 Care Plan: PET IMAGE FULL BODY LOINC : 4 2711-2 Pending 11/24/2018 Appointment: Neela Hyman WPtel: [address] [place] [address] [place] Consult 09/21/2018 Visit Diagnosis Plan: Pneumonia, unspecified organism Discussion: Patient clinically improved. Recent CT scan from 09/07 showed unresolved right upper lobe pneumonia. Finished another 7 days of levaquin. Will repeat CBC early next week. Order sent with patient to get done at [facility]. FU CT recommended in 4 weeks. Patient states understanding. ICD-9 : 486 ICD-10 : J18.9 09/16/2018 Appointment: Amita Henderson [address] [place] [address] FOLLOW UP 09/16/2018 Visit Diagnosis Plan: Pneumonia, unspecified organism Discussion: Clinically patient feels and looks much better but need CT scan of chest due to ongoing round pneumonia in association with his known lymphoma ICD-9 : 486 ICD-10 : J18.9 09/03/2018 Appointment: Neela Hyman WPtel: [address] [place] [address] [place] FOLLOW UP 09/03/2018 Care Plan: CT [...] ICD-10 : Z87.01 08/27/2018 Appointment: Amita Henderson [address] [place], [place] [phone] FOLLOW UP 08/27/2018 Visit Diagnosis Plan: Other [...] : I10 08/13/2018 Appointment: Amita Henderson [address] [place], [place] [phone] [facility] FOLLOW UP 08/13/2018 Appointment: Amita Henderson [address] [place], [place] [phone] CANCELED 08/13/2018 Patient Education: prednisone- Opt[employer] Coupon [phone] https://www.[employer].[place] [employer]samplemd/resources/getResource/61/[email or web address] Completed 08/13/2018 Visit Diagnosis Plan: Other specified [...] ICD-10 : J18.9 08/11/2018 Appointment: Amita Henderson [facility] [address] ACUTE ILLNESS 08/11/2018 Care Plan: CHEST X-RAY 2VW FRONTAL&LATL LOINC : 19843-9 Pending 07/20/2018 Visit Diagnosis Plan: Dyspnea, unspecified Discussion: CXR- to be completed at the hospital. Will call with results and any adjustments in plan. Solumedrol 125 administered in clinic Prednisone 20 mg BID x 5 days- start tomorrow ICD-9 : 786.09 ICD-10 : R06.00 07/16/2018 Appointment: Amita Hendersno [facility] [id number] ACUTE ILLNESS 07/16/2018 Patient Education: prednisone- Opt[employer] Coupon [phone] https://www.[employer].[place]samplemd/resources/getResource/61/[email or web address] Completed 07/16/2018 Visit Diagnosis Plan: Acute bronchitis due to other sp ecified organisms Discussion: Kenalog 40 mg IM administered in clinic. Doxycycline called into [facility]. Take as directed. Continue nebulizer and Trelegy. Follow up if symptoms are not improving with treatment regimen. Patient states understanding of all instruction. ICD-9 : 466.0 ICD-10 : J20.8 07/13/2018 Appointment: Amita Henderson [facility] [id number] ACUTE ILLNESS 07/13/2018 Patient Education: doxycycline hyclate- OptimizeRX Cou saritha [id number] https://www.[employer].[place]samplemd/resources/getResource/61/[email or web address]-8970-4t Completed 07/13/2018 Care Plan: [place] : [address]-6 Pending 07/13/2018 Care Plan: CBC Pending 07/13/2018 Care Plan: A1C HPLC LOINC : 88532-7 Pending 07/13/2018 Visit Diagnosis Plan: Mixed hyperlipidemia [...] I10 06/03/2018 Appointment: Neela Hyman WPtel: [address] [place] [address] [place] FOLLOW UP 06/03/2018 Visit Diagnosis Plan: [...] : J44.9 05/04/2018 Appointment: Gely Harp [address] [place] [address] ACUTE ILLNESS 05/04/2018 Visit Diagnosis Plan: Localized edema Discussion: Cont inue lasix and potassium at every other day Recheck lab and fwup in 3mos Follow Up: 3 months ICD-9 : 782.3 ICD-10 : R60.0 03/03/2018 Appointment: Neela Hyman WPtel: [address] [phone] [place] FOLLOW UP 03/03/2018 Patient Education: Patient Medication Summary Completed 03/03/2018 Visit Diagnosis Plan: Localized edema Discussion: Finch ge lasix and potassium to every other day Check Chem 7 in 2 weeks and fwup ICD-9 : 782.3 ICD-10 : R60.0 02/17/2018 Appointment: [facility] [address] [facility] [facility] FOLLOW [facility] 02/17/2018 Patient Education: Patient [...] R60.0 02/10/2018 Appointment: Neela [facility]Ptel[facility] [address] [facility] [place] FOLLOW UP 02/10/2018 Patient Education: [...] 11/05/2017 Appointment: Neela [facility]yman WPtel: [address] [id number] [place] FOLLOW UP 11/05/2017 Patient Education: Patient Medication Summary Completed 11/05/2017 Patient Education: Patient Medication Summary Completed 11/03/2017 Care Plan: [place] : [address]-6 Pending 11/03/2017 Care Plan: LIPID PANEL LOINC : 96743-8 Pending 11/03/2017 Care Plan: CBC Pending 11/03/2017 Care Plan: A1C HPLC LOINC : 96814-3 Pending 11/03/2017 Visit Diagnosis Plan: Allergic urticaria [...] ICD-10 : L50.0 09/09/2017 Appointment: Gely Harp [address] [place] [address] ACUTE ILLNESS 09/09/2017 Patient Education: Patient Medication [...] : R59.1 08/07/2017 Appointment: [facility] Harp [address] [facility] [facility] Follow Up 08/07/2017 Patient Education: Patient Medication Summary Completed 08/07/2017 Visit Diagnosis Plan: Type 2 diabetes mellitus without complications Discussion: Accuchecks daily Lab discussed Continue current meds ICD-9 : 250.00 ICD-10 : E11.9 08/04/2017 Visit Diagnosis Plan: Essential (primary) hypertension Discussion: Increase Cardizem CD to 360mg daily ICD-9 : 401.9 ICD-10 : I10 08/04/2017 Appointment: Neela Hyman WPtel: [facility] FOLLOW UP 08/04/2017 Patient Education: Patient Medication Summary Completed 08/04/2017 Patient Education: Patient Medication Summary Completed 07/31/2017 Care Plan: [place] : [address]-9 Pending 07/31/2017 Care Plan: ASSAY THYROID STIM HORMONE Pen ding 07/31/2017 Care Plan: LIPID PANEL LOINC : 70272-8 Pending 07/31/2017 Care Plan: CBC Pending 07/31/2017 Care Plan: A1C HPLC LOINC : 02347-8 Pending 07/31/2017 Patient Education: Patient Medication Summary Completed 06/19/2017 Patient Education: Patient Medication Summary Completed 06/09/2017 Care Plan: CT SOFT TISSUE [place] : [address]-1 Pending 06/09/2017 Visit Diagnosis Plan: Acute sialoadenitis [...] : B02.9 06/04/2017 Appointment: [facility] Harp [address] [facility] [facility] 06/04/2017 Patient Education: Patient Medication [...] : B02.9 06/02/2017 Appointment: [facility]ely Harp [address] [facility] [facility] 06/02/2017 Patient Education: Patient Medication [...] E11.9 05/05/2017 Appointment: Neela Hyman WPtel: [phone] [facility] FO[facility] 05/05/2017 Patient Education: Patient Medication Summary Completed 05/05/2017 Patient Education: Patient Medication Summary Completed 05/01/2017 Care Plan: A1C HPLC [facility] : 18670-3 Pending 05/01/2017 Visit Diagnosis Plan: Chronic obstructiv [...] ICD-10 : H61.23 04/10/2017 Appointment: Gely Harp [address] [place] [address] ACUTE ILLNESS 04/10/2017 Patient Education: Patient Medication Summary Completed 04/10/2017 Appointment: Neela Hyman WPtel: [address] [place] [address] INJECTION 03/28/2017 Patient Education: Patient Medication Summary [...] : J44.9 02/03/2017 Appointment: Neela Hyman WPtel: [address] [place] [address] FOLLOW UP 02/03/2017 Patient Education: Patient Medication Summary Completed 02/03/2017 Patient Education: Patient Medication Summary Completed 01/30/2017 Care Plan: [place] : 838[address]-0 Pending 01/30/2017 Care Plan: LIPID PANEL LOINC : 80015-6 Pending 01/30/2017 Care Plan: CBC Pending 01/30/2017 Care Plan: A1C HPLC LOINC : 81086-3 Pending 01/30/2017 Care Plan: ASSAY OF PSA [...] : E11.65 10/30/2016 Appointment: Neela Hyman WPtel: [address] [place], [place] [address] [place] / lm ~sl 10/30 confirmed~sl FOLLOW [...] Najera [address] [facility] [place] 4/6 rang and rang rang /7 [...] : J20.9 08/27/2016 Appointment: Sammi Najera [address] [facility] [place] FOLLOW UP 08/27/2016 Patient Education: Patient Medication Summary Completed 08/27/2016 Care Plan: Referral Order SNOMED-CT : 30 5172924 Pending 08/27/2016 Visit Diagnosis Plan: Type 2 [...] : I10 07/02/2016 Appointment: Neela Hyman WPtel: [address] [place] [address] 07/01 rang and elly`sl FOLLOW UP 7 Patient Education: Patient Medication Summary Completed 07/02/2016 Patient Education: Patient Medication Summary Completed 06/27/2016 Care Plan: LIPID PANEL LOINC : 64824-4 Pending 06/27/2016 Care Plan: [place] : 86[address]-3 Pending 06/27/2016 Care Plan: A1C HPLC LOINC : 76924-1 Pending 06/27/2016 Visit Diagnosis Plan: Acute bronchitis, [...] ICD-10 : J20.9 06/14/2016 Appointment: Sammi Najera [address] [facility] FOLLOW UP 06/14/2016 Patient Education: Patient Medication [...] ICD-10 : J20.9 06/13/2016 Appointment: Sammi Najera [address] [place], [place] [address] ACUTE ILLNESS 06/13/2016 Patient Education: Patient Medication Summary Completed 06/13/2016 Care Plan: CHEST X-RAY 2VW FRONTAL&LATL LOINC : 59593-0 Pending 06/13/2016 Visit Plan: Increase metoprolol to 100mg po BID BP readings and BP check in 1month 05/14/2016 Appointment: Neela Hyman WPtel: [address] [place], [place] [phone] 05/13 rang and rang`sl FOLLOW UP 6 Patient Education: Patient Medication Summary Completed 05/14/2016 Visit Plan: Increase metoprolol to 50mg BID BP check in 1 week f/u BP appt 2 weeks consider musculoskeletal if pain returns 04/29/2016 Appointment: Neela Hyman WPtel: [address] [place] [address] 04/25 confimred~sl FOLLOW UP 04/29/2016 Patient Education: Patient Medication Summary Completed 04/29/2016 Visit Plan: Stat CT scan of abdomen/pelv is to look for stone Hydrate and use tramadol prn Increase metoprolol to 25mg po BID Will see urology pending CT scan results 04/22/2016 Appointment: Neela Hyman WPtel: [address] [place], [place] [phone] 04/17 confirmed-sp ACUTE ILLNESS 04/22/2016 Patient Education: [...] shot 04/01/2016 Appointment: Neela Hyman WPtel: [address] [place] [address] FOLLOW UP 04/01/2016 Patient Education: Patient Medication Summary Completed 04/01/2016 Patient Education: [facility] - Saving AutoInj - 18-64 - Dynamic Heber medina ID Completed 04/01/2016 Patient Education: Patient Medication Summary Completed 03/28/2016 Care Plan: A1C HPLC LOINC : 30374-0 Pending 03/28/2016 Care Plan: [place] : [address]-0 Pending 03/28/2016 Visit Plan: Lab discussed Continue curre nt meds Accuchecks daily 11/30/2015 Appointment: Neela Hyman WPtel: [address] [place], [place] [phone] 11/28 confirmed~sl FOLLOW UP 11/30/2015 Patient Education: Patient Medication Summary Completed 11/30/2015 Appointment: Neela Hyman WPtel: [address] [place], [place] [phone] [place] RESCHEDULED 11/28/2015 Patient Education: Patient Medication Summary Completed 11/23/2015 Care Plan: [place] : 828[address]-5 Pending 11/23/2015 Care Plan: LIPID PANEL LOINC : 28122-3 Pending 11/23/2015 Care Plan: CBC Pending 11/23/2015 Care Plan: A1C HPLC LOINC : 38276-9 Pending 11/23/2015 Visit Plan: Lab discussed Accuchecks richard ly Continue current meds Cymbalta helping with feet and mood 08/29/2015 Appointment: Neela Hyman WPtel: [address] [place], [place] [phone] FOLLOW UP 08/29/2015 Patient Education: Patient Medication Summary Completed 08/29/2015 Visit Plan: Check CXR Stop all steroids and steroid inhalers Use SVN with but change to duoneb Add singulair for allergy etiology Change fluoxetine to cymbalta 60mg daily Viagra samples given to try prn--warned of no nitrates 08/14/2015 Appointment: Neela Hyman WPtel: [address] [place], [place] [phone] lm to reschedule ~sl 07/27 lm ~sl 08/09 busy 08/10 conf irmed-sp Annual Well Visit 08/14/2015 Patient Education: Patient Medication Summary Completed 08/14/2015 Care Plan: CHEST X-RAY 2VW FRONTAL&LATL LOINC : 92468-6 Ordered 08/14/2015 Visit Plan: Decadron 8mg given [...] improving as expected 08/09/2015 Appointment: Sammi Najera [address] [place], [place] [phone] ER Follow UP 08/09/2015 Patient Education: Patient Medication Summary Completed 08/09/2015 Patient Education: [facility] - Saving AutoInj - 18-64 - Dynamic Heber l ID Completed 08/09/2015 Patient Education: Symbicort - 18-64 - eCopay Completed 08/09/2015 Patient Education: Patient Medication Summary Completed 08/08/2015 Visit Plan: Lab discussed Accuchecks richard munguia Patient admits has changed eating habits--was eating twinkies and cookies routinely and has stopped buying those Will keep meds same for now Patiet got hearing aids and is doing well with it 05/22/2015 Appointment: Neela Hyman WPtel: [address] [place], [place] [phone] 05/17 confirmed~sl FOLLOW UP 05/22/2015 Patient Education: Patient Medication Summary Completed 05/22/2015 Patient Education: Patient Medication Summary Completed 05/15/2015 Visit Plan: Obtain EMGs done at [place] from when fractured left arm Lab discussed Accuchecks daily 02/13/2015 Appointment: Neela Hyman WPtel: [address] [place] [address] 02/10 confrimed FOLLOW UP 02/13/2015 Patient Education: Patient Medication Summary Completed 02/13/2015 Patient Education: Patient Medication Summary Completed 02/09/2015 Visit Plan: discussed lab add fenofibrat e 134mg po daily recheck fasting lab in 3 months, CBC, CMP, Lipids, hgb AIC 11/07/2014 Appointment: Neela Hyman WPtel: [address] [place] [address] 11/04 appt confirmed cn FOLLOW UP 015 Patient Education: Patient Medication Summary Completed 11/07/2014 Patient Education: Patient Medication Summary Completed 11/03/2014 Visit Plan: Continue loratadine 10mg richard ly Notify if symptoms return 10/04/2014 Appointment: Neela Hyman WPtel: [address] [place] [address] confirmed on 10/03 at 2:42pm FOLLOW UP 09/23 Patient Education: Patient Medication Summary Completed 10/04/2014 Appointment: Neela Hyman WPtel: [address] [place] [address] ACUTE ILLNESS 09/28/2014 Appointment: Loren Garza WPtel: [address] [place] [address] FOLLOW UP 09/22/2014 Patient Education: Patient Medication Summary Completed 09/22/2014 Appointment: Loren Garza WPtel: [address] [place] [address] ACUTE ILLNESS 09/21/2014 Patient Education: Patient Medication Summary Completed 09/21/2014 Patient Education: [facility] - Saving AutoInj - 18+ - Dynamic Portal ID Completed 09/21/2014 Visit Plan: Lab discussed Continue daily accuchecks Continue current meds 06/28/2014 Appointment: Neela Hyman WPtel: [address] [place] [address] FOLLOW UP 06/28/2014 Patient Education: Patient Medication Summary Completed 06/28/2014 Patient Education: Patient Medication Summary Completed 06/23/2014 Appointment: Sarah Sunshine WPtel: [address] [place], [place] [phone] ACUTE ILLNESS 06/10/2014 Patient Education: Patient Medication Summary Completed 06/10/2014 Patient Education: [facility] - Saving AutoInj - 18+ - Dynamic Portal ID Completed 06/10/2014 Visit Plan: Lab discussed Continue daily accuchecks Continue current meds 03/29/2014 Appointment: Neela Hyman WPtel: [address] [place] [address] FOLLOW UP 03/29/2014 Patient Education: Patient Medication Summary Completed 03/29/2014 Patient Education: Patient Medication Summary Completed 03/23/2014 Visit Plan: Lab discussed Continue curre nt meds and accuchecks See surgery for removal of hand lesion 11/30/2013 Appointment: Neela Hyman WPtel: [address] [place] [address] 11/29 no answer FOLLOW UP 11/30/2013 Patient Education: Patient Medication Summary Completed 11/30/2013 Visit Plan: Lab discussed Continue curre nt meds 08/03/2013 Appointment: Neela Hyman WPtel: [address] [place] [address] FOLLOW UP 08/03/2013 Patient Education: Patient Medication Summary Completed 08/03/2013 Visit Plan: Lab Discussed Will continue current meds and pt will get back on diet/exercise Check lab in 4mos and fwup 04/06/2013 Appointment: Neela Hyman WPtel: [address] [place], [place] [phone] FOLLOW UP 04/06/2013 Patient Education: Patient Medication Summary Completed 04/06/2013 Visit Plan: Lab discussed Continue daily accuchecks 12/01/2012 Appointment: Neela Hyman WPtel: [address] [place], [place] [phone] 11/30 no answer FOLLOW UP 12/01/2012 Patient Education: Patient Medication Summary Completed 12/01/2012 Visit Plan: Continue current meds and da russell accuchecks Lab discussed 08/04/2012 Appointment: Neela Hyman WPtel: [address] [place], [place] [phone] FOLLOW UP 08/04/2012 Patient Education: Patient Medication Summary Completed 08/04/2012 Appointment: Neela Hyman WPtel: [address] [place], [place] [phone] [facility] 06/01/2012 Patient Education: Patient Medication Summary Completed 06/01/2012 Appointment: Janet Jean Baptiste WPtel: [address] [place], [place] [phone] FOLLOW UP 05/29/2012 Patient Education: Patient Medication Summary Completed 05/29/2012 Visit Plan: pt states Dr. Hyman told h is to increase his Prozac dose while she was talking to her at [facility]. Discussed that pt. should not increase or decrease dosage without Dr's knowledge. Pt. will seek hearing test here in town at the hearing aid place on [address]. Discussed that ear pain is likely caused by sinus pressure. Pt. will notify if no improvement. 05/25/2012 Appointment: Janet Jean Baptiste WPtel: [address] [place] [address] ACUTE ILLNESS 05/25/2012 Patient Education: Patient Medication Summary Completed 05/25/2012 Visit Plan: Continue current meds Contin ue daily accuchecks but alternate times Increase fish oil to 3gm daily 04/07/2012 Appointment: Neela Hyman WPtel: [address] [place], [place] [phone] 04/06 FOLLOW UP 04/07/2012 Patient Education: Patient Medication Summary Completed 04/07/2012 Appointment: Janet Jean Baptiste WPtel: [address] [place], [place] [phone] ACUTE ILLNESS 12/16/2011 Patient Education: Patient Medication Summary Completed 12/16/2011 Visit Plan: Increase 12/03/2011 Appointment: Neela Hyman WPtel: [address] [place] [address] FOLLOW UP 12/03/2011 Patient Education: Patient Medication Summary Completed 12/03/2011 Visit Plan: Continue current meds Contin ue accuchecks 08/29/2011 Appointment: Neela Hyman WPtel: [address] [place] [address] FOLLOW UP 08/29/2011 Patient Education: Patient Medication Summary Completed 08/29/2011 Visit Plan: Continue current meds except restart zocor 05/30/2011 Appointment: Neela Hyman WPtel: [address] [place] [address] FOLLOW UP 05/30/2011 Patient Education: Patient Medication Summary Completed 05/30/2011 Visit Plan: Continue tennis elbow strap May go back to weight-lifing--light weigts every other day 01/29/2011 Appointment: Neela Hyman WPtel: [address] [place] [address] FOLLOW UP 01/29/2011 Patient Education: Patient Medication Summary Completed 01/29/2011 Visit Plan: Continue tennis elbow strap and anti-inflammatories 01/14/2011 Appointment: Neela Hyman WPtel: [address] [place] [address] FOLLOW UP 01/14/2011 Appointment: Janet Jean Baptiste WPtel: [address] [place] [address] PATIENT 01/14/2011 Patient Education: Patient Medication Summary Completed 01/14/2011 Appointment: Neela Hyman WPtel: [address] [place] [address] [place] FOLLOW UP 01/08/2011 Appointment: Neela Hyman WPtel: [address] [place] [address] [place] FOLLOW UP 01/01/2011 Appointment: Neela Hyman WPtel: [address] [place], [place] [phone] 01/01/2011 Patient Education: Patient Medication [...] 11/29/2010 Appointment: Janet Jean Baptiste WPtel: [address] [place] [address] ACUTE ILLNESS 11/29/2010 Patient Education: Patient Medication Summary Completed 11/29/2010 Visit Plan: Cont current meds Check CMP, Lipids, HbA1C 08/28/2010 Appointment: Neela Hyman WPtel: [address] [place] [address] FOLLOW UP 08/28/2010 Patient Education: Patient Medication Summary Completed 08/28/2010 Visit Plan: Cont current meds and accuch ecks Add Zocor 40mg q HS Check Lipids and HbA1C in 3mos 06/05/2010 Appointment: Neela Hyman WPtel: [address] [place], [place] [phone] FOLLOW UP 06/05/2010 Patient Education: Patient Medication Summary Completed 06/05/2010 Visit Plan: Check Lipids and HbA1C 02/05/2010 Appointment: Neela Hyman WPtel: [address] [place], [place] [phone] FOLLOW UP 02/05/2010 Patient Education: Patient Medication Summary Completed 02/05/2010 Visit Plan: HbA1C in 3mos. Continue Accu checks BID alternating times. Check HbA1C, CMP, Lipids 10/09/2009 Appointment: Neela Hyman WPtel: [address] [place], [place] [phone] FOLLOW UP 10/09/2009 Patient Education: Patient Medication Summary Completed 10/09/2009 Visit Plan: Saline nasal flushes prn. Ty lenol/Motrin prn headache. Notify if persists/symptoms worsening. 08/22/2009 Appointment: Neela Hyman WPtel: [phone] [id number] ACUTE ILLNESS 08/22/2009 Patient Education: Patient Medication Summary Completed 08/22/2009 Referral: Aubrey Rand WPtel: [phone] [id number] [place] Office will verfy his insurance then they will contact patient Completed Referral: Anu Shahbaz Yesenia WPtel: [address] [facility] 201 [id number] [place] Referral Completed Referral: Ion Levi [address] [facility] C&D [id number] [place] Referral Appointment Requested Referral: Ion Levi [address] [facility] C&D [id number] [place] Referral Appointment Requested Instructions Comment . [...] with it . Obtain EMGs done at [place] from when fractured left arm Lab discussed [...] while she was talking to her at [facility]. Discussed that pt. should not increase or decrease dosage without Dr's knowledge. Pt. will seek hearing test here in town at the hearing aid place on [address]. Discussed that ear pain is likely caused [...]
--- OUTSIDE RECORDS SUMMARY | 2019-12-09 09:21 | XMS REPORT | CCD ---
Author Author Michael Hyman D.O. Organization [facility] Address [address] [place] [address] Phone Care Team Providers Care Second Miller Name Role Phone Neela Hyman D.O., PP Unavailable CCM Unavailable Summary Purpose Interface Exchange Insurance Providers Payer name Policy type / Coverage type Covered constitution party ID Effective Begin Date Effective End Date ABS FOR [email or web address] Commercial Insurance [id number] Unknown Family History Family History data not found Social History Social History Element Codes Description Effective Dates Marital status Unknown 05/30/[address]: 1802735 Former smoker quit 25 years ago 01/01/2011 [...] Start Date Stop Date Status Fill Instructions diltiazem ER 360 mg capsule,24 hr,extended release RxNorm: 8 44502 TAKE ONE CAPSULE BY MOUTH AT BEDTIME -REPLACES 300MG 05/17/2019 11/12/2019 Active MagOx 400 mg (241.3 mg magnesium) tablet RxNorm: 527083 1 Table t(s) Oral QD 04/26/2019 06/24/2019 Active Lasix 40 mg tablet RxNorm: 581522 40 MG PO DAILY 04/12/2019 No Stop Da te Active Benicar 40 mg tablet RxNorm: 589103 1 Tablet(s) Oral QD 03/29/2019 Active potassium chloride ER 20 mEq tablet,extended release RxNorm: 741428 1 Tablet(s) Oral two times a day 03/29/2019 06/27/2019 Active metformin 500 mg tablet RxNorm: 784971 2 Tablet(s) Oral two afshan es a day 03/29/2019 No Stop Date Active potassium chloride ER 20 mEq tablet,extended release RxNorm: 736517 1 Tablet(s) Oral QD 03/29/2019 03/28/2019 Inactive Benicar 40 mg tablet RxNorm: 483353 1 Tablet(s) Oral QD 03/29/2019 Inactive MagOx 400 mg (241.3 mg magnesium) tablet RxNorm: 532971 1 Table t(s) Oral QD 03/29/2019 04/25/2019 Inactive fenofibrate micronized 134 mg capsule RxNorm: 045910 TA KE ONE CAPSULE BY MOUTH EVERY DAY 03/05/2019 08/31/2019 Active duloxetine 60 mg capsule,delayed release RxNorm: 402536 1 Capsu le(s) PO QD 01/28/2019 07/26/2019 Active Trelegy Ellipta 100 mcg-62.5 mcg-25 mcg powder for inhalatio n RxNorm: 2003226 1 Puff(s) INH QD 01/06/2019 12/31/2019 Active 90 day supply prednisone 20 mg tablet RxNorm: 201305 1 Tablet(s) PO T ID for 3 days then 1 po BID for 3 days then 1 po daily for 3 days 01/05/2019 03/28/2019 Inacti ve metformin ER 1,000 mg tablet,extended release 24hr RxNorm: 1 050209 TAKE TWO TABLETS (1000MG) BY MOUTH TWO TIMES A DAY 12/22/2018 03/28/2019 Inacti ve Diflucan 100 mg tablet RxNorm: 063653 1 Tablet(s) PO QD 12/09/2018 Inactive albuterol sulfate 2.5 mg/3 mL (0.083 %) solution for n ebulization RxNorm: 378774 3 Milliliter(s) INH ONE VIAL VIA NEBULIZER EVERY 4 HOURS 019 07/21/2019 Active [AttnRPh: Saving apply/adjudicate RxGRP: SG20 RxBIN:[id number] RxPCN:HT ID#:[id number]] prednisone 20 mg tablet RxNorm: 619373 1 Tablet(s) PO B ID for 4 days then 1 po daily for 4 days 11/24/2018 01/04/2019 Inactive Trelegy Ellipta 100 mcg-62.5 mcg-25 mcg powder for inhalatio n RxNorm: 7410690 1 Puff(s) INH QD 10/27/2018 01/06/2019 Inactive 90 day supply metoprolol succinate ER 100 mg tablet,extended release 24 hr RxNorm: 798822 TAKE ONE TABLET BY MOUTH TWICE A DAY 10/13/2018 07/09/2019 Active diltiazem ER 360 mg capsule,24 hr,extended release RxNorm: 8 18348 TAKE ONE CAPSULE BY MOUTH AT BEDTIME -REPLACES 300MG 10/13/2018 04/10/2019 Inactive Trelegy Ellipta 100 mcg-62.5 mcg-25 mcg powder for inhalatio n RxNorm: 2063333 INHALE ONE PUFF ONCE DAILY 09/07/2018 10/27/2018 Inactive Levaquin 750 mg tablet RxNorm: 026055 1 Tablet(s) PO QD 09/07/2018 Inactive Levaquin 750 mg tablet RxNorm: 972979 1 Tablet(s) PO QD 09/07/2018 Inactive prednisone 20 mg tablet RxNorm: 121507 2 Tablet(s) PO QAM 08/13/2018 08/19/2018 Inactive Levaquin 500 mg tablet RxNorm: 354656 1 Tablet(s) PO QD 08/11/2018 Inactive fenofibrate micronized 134 mg capsule RxNorm: 385611 TA KE ONE CAPSULE BY MOUTH EVERY DAY 08/10/2018 02/05/2019 Inactive prednisone 20 mg tablet RxNorm: 723597 1 Tablet(s) PO BID 07/16/2018 07/20/2018 Inactive doxycycline hyclate 100 mg capsule RxNorm: 3236957 1 Capsule(s) PO BID 07/13/2018 07/22/2018 Inactive duloxetine 60 mg capsule,delayed release RxNorm: 875080 TAKE ONE CAPSULE BY MOUTH ONCE A DAY 07/08/2018 01/28/2019 Inactive Lasix 40 mg tablet RxNorm: 927143 1 TABLET(S) PO QAM 06/08/201809/05 Inactive potassium chloride ER 20 mEq tablet,extended release(p art/cryst) RxNorm: 1157570 1 TABLET(S) PO QD 06/08/2018 09/05/2018 Inactive metformin ER 1,000 mg tablet,extended release 24hr RxNorm: 1 371165 TAKE TWO TABLETS (1000MG) BY MOUTH TWO TIMES A DAY 06/01/2018 11/27/2018 Inacti ve Zocor 40 mg tablet RxNorm: 630911 TAKE ONE TABLET BY M OUTH EVERY NIGHT AT BEDTIME 05/11/2018 08/03/2019 Active Benicar HCT 40 mg-25 mg tablet RxNorm: 580556 TAKE ONE TABLET BY MOUTH ONCE DAILY 05/11/2018 03/28/2019 Inactive Trelegy Ellipta 100 mcg-62.5 mcg-25 mcg powder for inhalatio n RxNorm: 8669247 1 PUFF(S) INH QD 04/06/2018 07/04/2018 Inactive diltiazem ER 360 mg capsule,24 hr,extended release RxNorm: 8 21568 1 Capsule(s) PO QHS replaces 300mg dose 03/30/2018 09/25/2018 Inactive Trelegy Ellipta 100 mcg-62.5 mcg-25 mcg powder for inhalatio n RxNorm: 2333795 1 Puff(s) INH QD 02/24/2018 02/23/2018 Inactive Trelegy Ellipta 100 mcg-62.5 mcg-25 mcg powder for inhalatio n RxNorm: 1342274 1 Puff(s) INH QD 02/24/2018 02/23/2018 Inactive Trelegy Ellipta 100 mcg-62.5 mcg-25 mcg powder for inhalatio n RxNorm: 5978581 1 Puff(s) INH QD 02/24/2018 04/05/2018 Inactive Lasix 40 mg tablet RxNorm: 004068 1 Tablet(s) PO QAM 02/10/201803/11 Inactive potassium chloride ER 20 mEq tablet,extended release(p art/cryst) RxNorm: 9641056 1 Tablet(s) PO QD 02/10/2018 03/11/2018 Inactive fenofibrate micronized 134 mg capsule RxNorm: 722433 1 Capsule( s) PO QD 01/30/2018 07/28/2018 Inactive metoprolol succinate ER 100 mg tablet,extended release 24 hr RxNorm: 596758 TAKE ONE TABLET BY MOUTH TWICE A DAY 12/30/2017 09/25/2018 Inactive metformin ER 1,000 mg tablet,extended release 24hr RxNorm: 1 261634 1 Tablet(s) PO BID 11/17/2017 05/15/2018 Inactive [SAVINGS FOR NON -COVERED DRUGS -- BIN:776192, PCN: ASPROD1, Group: XXXXX, ID# [id number], Questions: . THIS IS NOT INSURANCE.] Benicar HCT 40 mg-25 mg tablet RxNorm: 239217 1 Tablet(s) PO QD 05/10/2018 Inactive [SAVINGS FOR NON-COVERED JESU GS -- BIN:385572, PCN: ASPROD1, Group: XXXXX, ID# [id number], Questions: . THIS IS NOT INSURANCE.] Bactroban 2 % topical cream RxNorm: 203239 Application TOP BID 10/2409/02/2018 Inactive clindamycin HCl 300 mg capsule RxNorm: 962427 2 Capsule(s) PO TID 0 11/05/2017 11/18/2017 Inactive duloxetine 60 mg capsule,delayed release RxNorm: 098331 Capsule(s) TAKE ONE CAPSULE BY MOUTH ONCE DAILY 09/24/2017 09/23/2017 Inactive triamcinolone acetonide 0.1 % topical ointment RxNorm: 7834787 1 TOP BID 09/09/2017 11/04/2017 Inactive Bactrim DS 800 mg-160 mg tablet RxNorm: 649638 1 Tablet(s) PO BID 0 08/07/2017 08/13/2017 Inactive metronidazole 500 mg tablet RxNorm: 323192 1 Tablet(s) PO BID 08/0708/13/2017 Inactive diltiazem ER 360 mg capsule,24 hr,extended release RxNorm: 8 29754 1 Capsule(s) PO QHS replaces 300mg dose 08/04/2017 01/30/2018 Inactive fenofibrate micronized 134 mg capsule RxNorm: 979082 1 Capsule( s) PO QD 07/21/2017 01/30/2018 Inactive Zocor 40 mg tablet RxNorm: 824883 1 Tablet(s) PO QHS 07/21/201705/10 Inactive GB duloxetine 60 mg capsule,delayed release RxNorm: 765513 Capsule(s) TAKE ONE CAPSULE BY MOUTH ONCE DAILY 06/24/2017 09/24/2017 Inactive Cleocin HCl 300 mg capsule RxNorm: 840052 2 Capsule(s) PO BID 06/0206/08/2017 Inactive acyclovir 800 mg tablet RxNorm: 187876 1 Tablet(s) PO 5x day 201706/08/2017 Inactive diltiazem ER 300 mg capsule,24 hr,extended release RxNorm: 8 64448 1 Capsule(s) PO QHS replaces 240mg dose 05/05/2017 08/03/2017 Inactive ipratropium-albuterol 0.5 mg-3 mg(2.5 mg base)/3 mL ne bulization soln RxNorm: 6780034 1 Unit Dose INH Q4H as needed 05/05/2017 01/04/2019 Inactive metformin ER 1,000 mg tablet,extended release 24hr RxNorm: 1 063291 1 Tablet(s) PO BID 04/28/2017 11/17/2017 Inactive [SAVINGS FOR NON -COVERED DRUGS -- BIN:748156, PCN: ASPROD1, Group: XXXXX, ID# [id number], Questions: . THIS IS NOT INSURANCE.] diltiazem ER (XR/XT) 240 mg capsule,extended release 2 4 hr, controlled RxNorm: 406570 TAKE ONE CAPSULE BY MOUTH EVERY DAY 04/15/2017 05/04/2017 Inact avani prednisone 20 mg tablet RxNorm: 504221 1 Tablet(s) PO QD 04/10/2017 1 06/14/2016 Inactive Breo Ellipta 200 mcg-25 mcg/dose powder for inhalation RxNor m: 8494217 1 Puff(s) INH QD 04/10/2017 02/09/2018 Inactive Breo Ellipta 200 mcg-25 mcg/dose powder for inhalation RxNor m: 2202882 1 Puff(s) INH QD 04/10/2017 04/09/2017 Inactive Levaquin 500 mg tablet RxNorm: 560149 1 Tablet(s) PO QD 04/10/2017 Inactive metoprolol succinate ER 100 mg tablet,extended release 24 hr RxNorm: 931796 TAKE ONE TABLET BY MOUTH TWICE A DAY 03/24/2017 12/18/2017 Inactive fenofibrate micronized 134 mg capsule RxNorm: 956869 1 Capsule( s) PO QD 01/16/2017 07/21/2017 Inactive Benicar HCT 40 mg-25 mg tablet RxNorm: 411973 1 Tablet(s) PO QD 11/17/2017 Inactive [SAVINGS FOR NON-COVERED JESU GS -- BIN:004709, PCN: ASPROD1, Group: XXXXX, ID# [id number], Questions: . THIS IS NOT INSURANCE.] metoprolol succinate ER 100 mg tablet,extended release 24 hr RxNorm: 347207 1 Tablet(s) PO BID 10/16/2016 03/23/2017 Inactive diltiazem ER (XR/XT) 240 mg capsule,extended release 2 4 hr, controlled RxNorm: 786662 1 Capsule(s) PO QD 10/16/2016 04/13/2017 Inactive [SAVINGS FOR NON- COVERED DRUGS -- BIN:813282, PCN: ASPROD1, Group: XXXXX, ID# [id number], Questions: . THIS IS NOT INSURANCE.] metformin ER 1,000 mg tablet,extended release 24hr RxNorm: 8 66585 1 Tablet(s) PO BID 10/16/2016 04/28/2017 Inactive [SAVINGS FOR NON -COVERED DRUGS -- BIN:375084, PCN: ASPROD1, Group: XXXXX, ID# [id number], Questions: . THIS IS NOT INSURANCE.] Zocor 40 mg tablet RxNorm: 336621 1 Tablet(s) PO QHS 10/16/201607/21 Inactive GB Singulair 10 mg tablet RxNorm: 351138 Tablet(s) 1 TABLET(S) PO QHS 08/27/2016 09/02/2018 Inactive prednisone 20 mg tablet RxNorm: 758701 1 Tablet(s) PO QD 08/27/2016 0 08/31/2016 Inactive ipratropium-albuterol 0.5 mg-3 mg(2.5 mg base)/3 mL ne bulization soln RxNorm: 6054980 1 Unit Dose INH Q4H as needed 08/27/2016 05/04/2017 Inactive metoprolol succinate ER 100 mg tablet,extended release 24 hr RxNorm: 894917 TAKE ONE TABLET BY MOUTH TWICE A DAY 08/05/2016 10/16/2016 Inactive duloxetine 60 mg capsule,delayed release RxNorm: 414483 TAKE ONE CAPSULE BY MOUTH ONCE DAILY 08/05/2016 06/24/2017 Inactive prednisone 20 mg tablet RxNorm: 972488 1 Tablet(s) PO QD 06/14/2016 0 06/18/2016 Inactive ipratropium-albuterol 0.5 mg-3 mg(2.5 mg base)/3 mL ne bulization soln RxNorm: 2280031 1 Unit Dose INH Q4H as needed 06/13/2016 08/26/2016 Inactive Levaquin 500 mg tablet RxNorm: 213400 1 Tablet(s) PO QD 06/13/2016 Inactive metoprolol succinate ER 100 mg tablet,extended release 24 hr RxNorm: 473260 1 Tablet(s) PO BID replaces 50mg dose 05/14/2016 07/12/2016 Inactive metoprolol succinate ER 50 mg tablet,extended release 24 hr RxNorm: 727384 1 Tablet(s) PO BID 04/29/2016 05/13/2016 Inactive prednisone 20 mg tablet RxNorm: 742646 1 Tablet(s) PO BID 04/22/2016 04/21/2016 Inactive prednisone 20 mg tablet RxNorm: 137216 1 Tablet(s) PO BID 04/22/2016 04/28/2016 Inactive Singulair 10 mg tablet RxNorm: 014749 Tablet(s) 1 TABLET(S) PO QHS 04/01/2016 08/26/2016 Inactive metoprolol succinate ER 25 mg tablet,extended release 24 hr RxNorm: 948887 1 Tablet(s) PO QHS for blood pressure 04/01/2016 05/13/2016 Inactive fenofibrate micronized 134 mg capsule RxNorm: 802658 TA KE ONE CAPSULE BY MOUTH DAILY 01/25/2016 01/16/2017 Inactive duloxetine 60 mg capsule,delayed release RxNorm: 090218 TAKE ONE CAPSULE BY MOUTH ONCE DAILY 01/25/2016 08/04/2016 Inactive Zocor 40 mg tablet RxNorm: 746440 TAKE ONE TABLET BY MOUTH AT B EDTIME 11/13/2015 10/16/2016 Inactive GB metformin ER 1,000 mg tablet,extended release 24hr RxNorm: 8 31184 1 Tablet(s) PO BID 10/26/2015 10/16/2016 Inactive [SAVINGS FOR NON -COVERED DRUGS -- BIN:341088, PCN: ASPROD1, Group: XXXXX, ID# [id number], Questions: . THIS IS NOT INSURANCE.] Benicar HCT 40 mg-25 mg tablet RxNorm: 866084 1 Tablet(s) PO QD 06/201511/11/2016 Inactive [SAVINGS FOR NON-COVERED JESU GS -- BIN:592333, PCN: ASPROD1, Group: XXXXX, ID# [id number], Questions: . THIS IS NOT INSURANCE.] diltiazem ER (XR/XT) 240 mg capsule,extended release,control led RxNorm: 362194 1 Capsule(s) PO QD 10/26/2015 10/15/2016 Inactive [SAVINGS FOR NO N-COVERED DRUGS -- BIN:251645, PCN: ASPROD1, Group: XXXXX, ID# [id number], Questions: . THIS IS NOT INSURANCE.] Singulair 10 mg tablet RxNorm: 735063 1 TABLET(S) PO QHS 09/18/2015 1 05/31/2015 Inactive Viagra 100 mg tablet RxNorm: 586565 1 Tablet(s) PO as needed 201511/23/2018 Inactive Singulair 10 mg tablet RxNorm: 370145 1 Tablet(s) PO QHS 08/16/2015 0 08/15/2015 Inactive Singulair 10 mg tablet RxNorm: 795564 1 Tablet(s) PO QHS 08/16/2015 0 09/14/2015 Inactive duloxetine 60 mg capsule,delayed release RxNorm: 747660 1 Capsule(s) PO QD replaces fluoxetine 08/14/2015 01/24/2016 Inactive ipratropium-albuterol 0.5 mg-3 mg(2.5 mg base)/3 mL ne bulization soln RxNorm: 1202240 1 Unit Dose INH Q4H as needed 08/14/2015 06/12/2016 Inactive prednisone 20 mg tablet RxNorm: 850545 Take 3 tabs PO o nce daily x 3 days, then 2 tabs PO once daily x 3 days and then 1 tab PO once daily x 3 days 08/09/2015 08/13/2015 Inactive Symbicort 160 mcg-4.5 mcg/actuation HFA aerosol inhaler RxNo rm: 3332287 2 Puff(s) INH BID 08/09/2015 08/13/2015 Inactive Zocor 40 mg tablet RxNorm: 449415 1 Tablet(s) PO QHS 05/23/201511/11 Inactive [AttnRPh: Saving apply/adjudicate RxGRP: SG20 RxBIN:[id number] RxPCN: ID#:[id number]] Benicar HCT 40 mg-25 mg tablet RxNorm: 056863 1 Tablet(s) PO QD 10/26/2015 Inactive [SAVINGS FOR NON-COVERED JESU GS -- BIN:333092, PCN: ASPROD1, Group: XXXXX, ID# [id number], Questions: . THIS IS NOT INSURANCE.] diltiazem ER (XR/XT) 240 mg capsule,extended release,control led RxNorm: 272101 1 Capsule(s) PO QD 04/24/2015 10/20/2015 Inactive [SAVINGS FOR NO N-COVERED DRUGS -- BIN:884450, PCN: ASPROD1, Group: XXXXX, ID# [id number], Questions: . THIS IS NOT INSURANCE.] fluoxetine 40 mg capsule RxNorm: 852084 1 Capsule(s) PO QD 04/24/20 15 08/13/2015 Inactive [SAVINGS FOR NON-COVERED JESU GS -- BIN:883347, PCN: ASPROD1, Group: XXXXX, ID# XXXXXXX, Questions: . THIS IS NOT INSURANCE.] Zocor 40 mg tablet RxNorm: 963627 TABLET(S) 1 TABLET(S) PO QHS 01/2505/23/2015 Inactive [AttnRPh: Saving apply/adjud icate RxGRP:SG20 RxBIN:[id number] RxPCN: ID#:[id number]] metformin ER 1,000 mg tablet,extended release 24hr RxNorm: 8 14262 1 TABLET(S) PO BID 01/29/2015 10/26/2015 Inactive [SAVINGS FOR NON -COVERED DRUGS -- BIN:622512, PCN: ASPROD1, Group: XXXXX, ID# [id number], Questions: . THIS IS NOT INSURANCE.] fenofibrate micronized 134 mg capsule RxNorm: 281188 1 CAPSULE( S) PO QD 01/23/2015 01/17/2016 Inactive fenofibrate micronized 134 mg capsule RxNorm: 419675 1 Capsule( s) PO QD 11/07/2014 01/22/2015 Inactive diltiazem ER (XR/XT) 240 mg capsule,extended release,control led RxNorm: 944566 1 Capsule(s) PO QD 10/24/2014 04/24/2015 Inactive [SAVINGS FOR NO N-COVERED DRUGS -- BIN:300553, PCN: ASPROD1, Group: XXXXX, ID# XXXXXXX, Questions: . THIS IS NOT INSURANCE.] Benicar HCT 40 mg-25 mg tablet RxNorm: 964113 1 Tablet(s) PO QD 05/201404/24/2015 Inactive [SAVINGS FOR NON-COVERED JESU GS -- BIN:090018, PCN: ASPROD1, Group: XXXXX, ID# [id number], Questions: . THIS IS NOT INSURANCE.] fluoxetine 40 mg capsule RxNorm: 352263 1 Capsule(s) PO QD 10/25/1904/24/2015 Inactive [SAVINGS FOR NON-COVERED JESU GS -- BIN:377799, PCN: ASPROD1, Group: XXXXX, ID# XXXXXXX, Questions: . THIS IS NOT INSURANCE.] azithromycin 500 mg tablet RxNorm: 113162 1 Tablet(s) PO QD 015 09/27/2014 Inactive [SAVINGS FOR NON-COVERED JESU GS -- BIN:679313, PCN: ASPROD1, Group: XXXXX, ID# XXXXXXX, Questions: . THIS IS NOT INSURANCE.] albuterol sulfate 2.5 mg/3 mL (0.083 %) solution for n ebulization RxNorm: 572038 3 Milliliter(s) INH ONE VIAL VIA NEBULIZER EVERY 4 HOURS 015 11/19/2014 Inactive [AttnRPh: Saving apply/adjudicate RxGRP: SG20 RxBIN:[id number] RxPCN: ID#:[id number]] Zocor 40 mg tablet RxNorm: 086690 TABLET(S) 1 TABLET(S ) PO QHS 1 TABLET(S) PO QHS 09/04/2014 02/21/2015 Inactive [AttnRPh: Saving apply/adjudicate RxGRP:SG20 RxBIN:[id number] RxPCN: ID#:[id number]] metformin ER 1,000 mg tablet,extended release 24hr RxNorm: 8 30343 1 Tablet(s) PO BID 08/04/2014 01/28/2015 Inactive [SAVINGS FOR NON -COVERED DRUGS -- BIN:944305, PCN: ASPROD1, Group: XXXXX, ID# XXXXXXX, Questions: . THIS IS NOT INSURANCE.] Bromfed DM 2 mg-30 mg-10 mg/5 mL syrup RxNorm: 9469664 1 -2 Teaspoon(s) PO Q4H as needed for cough 06/10/2014 06/19/2014 Inactive [SAVINGS FOR UN INSURED PATIENTS -- BIN:981591, PCN: ASPROD1, Group: [id number], ID# [id number], Process claim through [place], for questions: . THIS IS NOT INSURANCE.] Augmentin 875 mg-125 mg tablet RxNorm: 570625 1 Tablet(s) PO Q12H 0 06/10/2014 06/19/2014 Inactive [AttnRPh: Saving apply/adjud icate RxGRP:SG20 RxBIN:[id number] RxPCN:HT ID#:[id number]] Zocor 40 mg tablet RxNorm: 491240 Tablet(s) 1 TABLET(S ) PO QHS 1 TABLET(S) PO QHS 05/25/2014 08/22/2014 Inactive [AttnRPh: Saving apply/adjudicate RxGRP:SG20 RxBIN:[id number] RxPCN:HT ID#:[id number]] fluoxetine 40 mg capsule RxNorm: 773409 1 Capsule(s) PO QD 04/29/20 14 10/24/2014 Inactive [AttnRPh: Saving apply/adjud icate RxGRP:SG20 RxBIN:[id number] RxPCN:HT ID#:[id number]] diltiazem ER (XR/XT) 240 mg capsule,extended release,control led RxNorm: 810024 1 Capsule(s) PO QD 04/29/2014 10/24/2014 Inactive [AttnRPh: Shahzad rubio apply/adjudicate RxGRP:SG20 RxBIN:[id number] RxPCN:HT ID#:[id number]] Benicar HCT 40 mg-25 mg tablet RxNorm: 126587 1 Tablet(s) PO QD 09/201310/24/2014 Inactive [AttnRPh: Saving apply/adjud icate RxGRP:SG20 RxBIN:[id number] RxPCN:HT ID#:[id number]] Zocor 40 mg tablet RxNorm: 767365 1 TABLET(S) PO QHS 1 TABLET(S ) PO QHS 03/07/2014 05/25/2014 Inactive [AttnRPh: Saving chelsie ly/adjudicate RxGRP:SG20 RxBIN:[id number] RxPCN:HT ID#:[id number]] Zocor 40 mg tablet RxNorm: 961705 1 Tablet(s) PO QHS 1 TABLET(S ) PO QHS 12/06/2013 03/05/2014 Inactive [AttnRPh: Saving chelsie ly/adjudicate RxGRP:SG20 RxBIN:[id number] RxPCN:HT ID#:[id number]] diltiazem ER (XR/XT) 240 mg capsule,extended release,control led RxNorm: 267839 1 Capsule(s) PO QD 10/25/2013 04/22/2014 Inactive [AttnRPh: Leonelin g apply/adjudicate RxGRP:SG20 RxBIN:[id number] RxPCN:HT ID#:[id number]] fluoxetine 40 mg capsule RxNorm: 539508 1 Capsule(s) PO QD 10/26/19 14 04/22/2014 Inactive [AttnRPh: Saving apply/adjud icate RxGRP:SG20 RxBIN:[id number] RxPCN:HT ID#:[id number]] Zocor 40 mg tablet RxNorm: 323990 1 Tablet(s) PO QHS 1 TABLET(S ) PO QHS 09/13/2013 12/06/2013 Inactive metformin ER 1,000 mg tablet,extended release 24hr RxNorm: 8 46834 Tablet(s) PO TAKE 1 TABLET BY MOUTH TWICE DAILY (REPLACES 500MG DOSE) 07/26/201303/2015 Inactive diltiazem ER (XR/XT) 240 mg capsule,extended release,control led RxNorm: 603158 1 Capsule(s) PO QD 05/03/2013 10/25/2013 Inactive fluoxetine 40 mg capsule RxNorm: 560606 1 Capsule(s) PO QD 05/03/20 13 10/25/2013 Inactive Benicar HCT 40 mg-25 mg tablet RxNorm: 647354 1 Tablet(s) PO QD 01/201304/29/2014 Inactive Zocor 40 mg tablet RxNorm: 782657 1 Tablet(s) PO QHS 12/10/201209/13 Inactive fluoxetine 40 mg capsule RxNorm: 520554 1 Capsule(s) PO QD 11/10/19 13 05/03/2013 Inactive diltiazem ER (XR/XT) 240 mg capsule,extended release,control led RxNorm: 681035 1 Capsule(s) PO QD 11/09/2012 05/03/2013 Inactive Benicar HCT 40 mg-25 mg tablet RxNorm: 332446 1 Tablet(s) PO QD 05/03/2013 Inactive metformin ER 1,000 mg tablet,extended release 24hr RxNorm: 8 21787 Tablet(s) PO TAKE 1 TABLET BY MOUTH TWICE DAILY (REPLACES 500MG DOSE) 08/05/201206/2013 Inactive Zocor 40 mg tablet RxNorm: 516407 1 Tablet(s) PO QHS 06/15/201212/09 Inactive fluoxetine 40 mg capsule RxNorm: 851686 1 Capsule(s) PO QD 05/15/20 12 11/08/2012 Inactive Neurontin 600 mg Tab RxNorm: 921458 1 Tablet(s) PO QHS 12/03/2011 Inactive metformin ER 1,000 mg tablet,extended release 24hr RxNorm: 8 90993 1 Tablet(s) PO BID replaces 500mg dose 12/03/2011 07/26/2013 Inactive Zocor 40 mg tablet RxNorm: 513538 1 Tablet(s) PO QHS 12/03/201106/15 Inactive fluoxetine 20 mg capsule RxNorm: 938873 1 Capsule(s) PO QD 12/03/19 12 05/24/2012 Inactive diltiazem ER (XR/XT) 240 mg capsule,extended release,control led RxNorm: 672378 1 Capsule(s) PO QD 11/15/2011 11/09/2012 Inactive Benicar HCT 40 mg-25 mg tablet RxNorm: 650360 1 Tablet(s) PO QD 02/16/2012 Inactive metformin ER 500 mg 24 hr Tab RxNorm: 715395 1 Tablet(s) PO BID 12/02/2011 Inactive Zocor 40 mg Tab RxNorm: 194296 1 Tablet(s) PO QHS 05/30/2011 11/25/19 12 Inactive fluoxetine 20 mg Cap RxNorm: 384912 1 Capsule(s) PO QD 05/28/2011 Inactive Neurontin 600 mg Tab RxNorm: 922875 1 Tablet(s) PO QHS 05/28/2011 Inactive Neurontin 600 mg Tab RxNorm: 065429 1 Tablet(s) PO QHS 02/22/201106/2011 Inactive Neurontin 600 mg Tab RxNorm: 189831 1 Tablet(s) PO QHS 01/14/2011 Inactive Neurontin 300 mg Cap RxNorm: 057212 1 Capsule(s) PO QHS 01/14/2011 Inactive Neurontin 600 mg Tab RxNorm: 855534 1 Tablet(s) PO QHS 01/14/2011 Inactive Medrol (Vipul) 4 mg Tabs in a Dose Pack RxNorm: 060002 Tablet(s) PO 0 01/02/2011 08/28/2011 Inactive as directed fluoxetine 20 mg Cap RxNorm: 516066 1 Capsule(s) PO QD 12/10/201006/2011 Inactive Zocor 40 mg Tab RxNorm: 186211 1 Tablet(s) PO QHS 12/03/2010 05/29/19 12 Inactive Neurontin 300 mg Cap RxNorm: 708499 1 Capsule(s) PO QHS 12/03/2010 Inactive Septra DS 800 mg-160 mg Tab RxNorm: 507312 1 Tablet(s) PO BID 11/2912/08/2010 Inactive diltiazem ER (XR/XT) 240 mg Continuous Release Cap RxNorm: 8 17556 1 Capsule(s) PO QD 11/20/2010 11/15/2011 Inactive Neurontin 300 mg Cap RxNorm: 421045 1 Capsule(s) PO QHS 11/06/2010 Inactive Neurontin 300 mg Cap RxNorm: 568081 1 Capsule(s) PO QHS 11/06/2010 Inactive Celebrex 200 mg Cap RxNorm: 416833 1 Capsule(s) PO BID 10/24/2010 Inactive fluoxetine 20 mg Cap RxNorm: 677161 1 Capsule(s) PO QD 06/07/201003/2011 Inactive Zocor 40 mg Tab RxNorm: 369650 1 Tablet(s) PO QHS 06/05/2010 12/02/19 11 Inactive Benicar HCT 40 mg-25 mg Tab RxNorm: 918186 1 Tablet(s) PO QD 200908/21/2011 Inactive Diltiazem 240 mg Continuous Release Cap RxNorm: 500079 1 Capsul e(s) PO QD 11/09/2009 09/02/2018 Inactive Avelox 400 mg Tab RxNorm: 277091 1 Tablet(s) PO QD 08/22/2009 010 Inactive ProAir HFA 90 mcg/actuation aerosol inhaler RxNorm: 335962 2 Puff(s) INH Q4H as needed No Start Date Active tramadol 50 mg tablet RxNorm: 940740 1-2 Tablet(s) PO TID as ne eded for pain No Start Date Active Tylenol Arthritis 650 mg Tab RxNorm: 6472269 2 Tablet(s) PO QD No Sta rt Date Active Celebrex 200 mg Cap RxNorm: 771783 1 Capsule(s) PO BID No Start Date 08/08/2015 Inactive Medrol (Vipul) 4 mg Tabs in a Dose Pack RxNorm: 094185 Tablet(s) PO N o Start Date 01/01/2011 Inactive as directed Promethazine-DM 6.25 mg-15 mg/5 mL Syrup RxNorm: 967822 1-2 Teaspoon(s) PO Q4H prn cough No Start Date 08/28/2011 Inactive Claritin 10 mg tablet RxNorm: 389263 1 Tablet(s) PO QD No Start Date 08/08/2015 Inactive [id number] Oral RxNorm: Oral No Start Da te 03/28/2019 Inactive Breo Ellipta 200 mcg-25 mcg/dose powder for inhalation RxNor m: 2872727 1 Puff(s) INH QD No Start Date 04/09/2017 Inactive metformin 500 mg Tab RxNorm: 945848 1 Tablet(s) PO QD No Start Date 0 08/17/2011 Inactive Diltiazem 240 mg Continuous Release Cap RxNorm: 180078 1 Capsul e(s) PO BID No Start Date 11/08/2009 Inactive fluoxetine 20 mg Cap RxNorm: 219364 1 Capsule(s) PO QD No Start Date 06/07/2010 Inactive Multivitamin & Mineral Formula Oral RxNorm: Oral No Start Da te 03/28/2019 Inactive Medrol (Vipul) 4 mg tablets in a dose pack RxNorm: 558853 Tablet(s) PO as directed No Start Date 05/28/2012 Inactive Fish Oil 1,000 mg Cap RxNorm: 1 Capsule(s) PO QD No Start Date 07/2018 Inactive Nexium 40 mg Cap RxNorm: 545810 1 Capsule(s) PO QD No Start Date 07/24 Inactive fluticasone 50 mcg/actuation nasal spray,suspension RxNorm: 5709241 2 [place] NASAL QD to each nostril No Start Date 08/03/2017 Inactive Viagra 100 mg tablet RxNorm: 027416 1 Tablet(s) PO as needed No Sta rt Date 09/17/2015 Inactive prednisone 20 mg tablet RxNorm: 265347 1 Tablet(s) PO B ID for 4 days then 1 po daily for 4 days No Start Date 11/23/2018 Inactive Benicar HCT 40 mg-25 mg Tab RxNorm: 667753 1 Tablet(s) PO QD No Sta rt [...] Date S ervice Location MICROALBUMIN URINE RANDOM 42093 MICRL MG/L 5.8 MG/L 03/2011 Unknown MICROALBUMIN URINE RANDOM 17891 XM.ALB/CRE 5.2 MG/GCR Unknown MICROALBUMIN URINE RANDOM 64189 CREAT MG/D 111 MG/DL 03/2011 Unknown MICROALBUMIN URINE RANDOM 74043 CRE/100 1.11 G/L 12/24 Unknown Procedures Procedure Codes Date FLU VACC PRSV FREE INC ANTIG 65 AND OLDER CPT-4: 46757 03/04/2019 ADMIN PNEUMOCOCCAL VACCINE CPT-4: G0009 03/04/2019 ADMIN INFLUENZA VIRUS VAC CPT-4: G0008 03/04/2019 FLU VACC PRSV FREE INC ANTIG 65 AND OLDER CPT-4: 83967 03/04/2019 PNEUMOCOCCAL VACC 23 R[facility]MON IM CPT-4: 48936 03/04/2019 THER/PROPH/DIAG INJ SC/IM CPT-4: 49247 08/11/2018 TRIAMCINOLONE ACET INJ NOS CPT-4: J3301 08/11/2018 DEXAMETHASONE SODIUM PHOS CPT-4: J1100 08/11/2018 THER/PROPH/DIAG INJ SC/IM CPT-4: 35479 07/16/2018 METHYLPREDNISOLONE INJECTION CPT-4: J2930 07/16/2018 INFLUENZA ASSAY W/OPTIC CPT-4: 09052 07/16/2018 THER/PROPH/DIAG INJ SC/IM CPT-4: 35735 07/13/2018 TRIAMCINOLONE ACET INJ NOS CPT-4: J3301 07/13/2018 THER/PROPH/DIAG INJ SC/IM CPT-4: 34189 05/04/2018 METHYLPREDNISOLONE INJECTION CPT-4: J2930 05/04/2018 FLU VACC PRSV FREE INC ANTIG 65 AND OLDER CPT-4: 37490 02/10/2018 PNEUMOCOCCAL VACC 13 [facility]MON IM CPT-4: 09972 02/10/2018 ADMIN INFLUENZA VIRUS VAC CPT-4: G0008 02/10/2018 ADMIN PNEUMOCOCCAL VACCINE CPT-4: G0009 02/10/2018 THER/PROPH/DIAG INJ SC/IM CPT-4: 36356 09/09/2017 TRIAMCINOLONE ACET INJ NOS CPT-4: J3301 09/09/2017 ALBUTEROL NON-COMP UNIT CPT-4: J7613 04/10/2017 AIRWAY INHALATION TREATMENT CPT-4: 43382 04/10/2017 PRESCRIP TRANSMIT VIA ERX SY CPT-4: G8553 04/10/2017 FLU VACC PRSV FREE INC ANTIG 65 AND OLDER CPT-4: 43212 03/28/2017 ADMIN INFLUENZA VIRUS VAC CPT-4: G0008 03/28/2017 PRESCRIP TRANSMIT VIA ERX SY CPT-4: G8553 08/27/2016 PRESCRIP TRANSMIT VIA ERX SY CPT-4: G8553 06/14/2016 ALBUTEROL NON-COMP UNIT CPT-4: J7613 06/13/2016 AIRWAY INHALATION TREATMENT CPT-4: 06855 06/13/2016 PRESCRIP TRANSMIT VIA ERX SY CPT-4: [...] CPT-4: G8553 11/07/2014 THER/PROPH/DIAG INJ SC/IM CPT-4: 49678 09/21/2014 METHYLPREDNISOLONE INJECTION CPT-4: J2930 09/21/2014 PRESCRIP TRANSMIT VIA ERX SY CPT-4: G8553 09/21/2014 PRESCRIP TRANSMIT VIA ERX SY CPT-4: G8553 06/10/2014 URINALYSIS NONAUTO W/O SCOPE CPT-4: 25732 06/01/2012 PRESCRIP TRANSMIT VIA ERX SY CPT-4: G8553 05/25/2012 PRESCRIP TRANSMIT VIA ERX SY CPT-4: G8553 12/03/2011 CUR TOBACCO NON-USER CPT-4: G8457 05/30/2011 PRESCRIP TRANSMIT VIA ERX SY CPT-4: G8553 05/30/2011 URINALYSIS NONAUTO W/O SCOPE CPT-4: 24980 01/01/2011 URINE CULTURE/ COLONY COUNT CPT-4: 82715 01/01/2011 CUR TOBACCO NON-USER CPT-4: G8457 01/01/2011 [...] 1: 114/68 Code: 8480-6 BMI: 43.5 Code: 89858-1 Heart Rate 1: 52 bpm Height: 6'1" [...] 1: 136/72 Code: 8480-6 BMI: 42.7 Code: 60403-2 Heart Rate 1: 60 bpm Height: 6'1" Respiratory Rate: 22 bpm SpO2: 95% Tempera ture: 37.1 (C) / 98.7 (F) Weight: 324 lbs 02/10/2018 Blood Pressure 1: 146/78 Code: 8480-6 BMI: 42.4 Code: 21602-8 Heart Rate 1: 64 bpm Height: 6'1" Respiratory Rate: 22 bpm SpO2: 95% Tempera ture: 36.5 (C) / 97.7 (F) Weight: 321 lbs 11/05/2017 Blood Pressure 1: 128/84 Code: 8480-6 BMI: 42.9 Code: 71787-6 Heart Rate 1: 52 bpm Height: 6'1" Respiratory Rate: 22 bpm SpO2: 95% Tempera ture: 36.3 (C) / 97.3 (F) Weight: 325 lbs 09/09/2017 Blood Pressure 1: 162/90 Code: 8480-6 BMI: 42.5 Code: 17338-2 Heart Rate 1: 60 bpm Height: 6'1" Respiratory Rate: 24 bpm SpO2: 95% Tempera ture: 36.4 (C) / 97.6 (F) Weight: 322 lbs 08/07/2017 Blood Pressure 1: 152/90 Code: 8480-6 BMI: 42.2 Code: 39882-2 Heart Rate 1: 60 bpm Height: 6'1" Respiratory Rate: 26 bpm SpO2: 94% Tempera ture: 36.6 (C) / 97.8 (F) Weight: 320 lbs 08/04/2017 Blood Pressure 1: 150/86 Code: 8480-6 BMI: 42.7 Code: 10200-9 Heart Rate 1: 64 bpm Height: 6'1" Respiratory Rate: 20 bpm SpO2: 94% Tempera ture: 36.3 (C) / 97.3 (F) Weight: 324 lbs 06/04/2017 Blood Pressure 1: 164/90 Code: 8480-6 Heart Rate 1: 60 bpm Respiratory Rate: 24 bpm SpO2: 94% Temperature: 36.8 (C) / 98.3 (F) 06/02/2017 Blood Pressure 1: 162/80 Code: 8480-6 BMI: 42.9 Code: 02491-0 Heart Rate 1: 66 bpm Height: 6'1" Respiratory Rate: 22 bpm SpO2: 98% Tempera ture: 36.6 (C) / 97.8 (F) Weight: 325 lbs 05/05/2017 Blood Pressure 1: 164/94 Code: 8480-6 BMI: 41.4 Code: 30300-0 Heart Rate 1: 64 bpm Height: 6'1" Respiratory Rate: 22 bpm SpO2: 95% Tempera ture: 36.4 (C) / 97.5 (F) Weight: 314 lbs 04/10/2017 Blood Pressure 1: 136/78 Code: 8480-6 BMI: 42.0 Code: 84525-1 Heart Rate 1: 76 bpm Height: 6'1" Respiratory Rate: 24 bpm SpO2: 92% Tempera ture: 35.9 (C) / 96.7 (F) Weight: 318 lbs 02/03/2017 Blood Pressure 1: 134/82 Code: 8480-6 BMI: 41.7 Code: 49805-9 Heart Rate 1: 72 bpm Height: 6'1" Respiratory Rate: 24 bpm SpO2: 95% Tempera ture: 36.1 (C) / 97.0 (F) Weight: 316 lbs 10/30/2016 Blood Pressure 1: 126/74 Code: 8480-6 BMI: 41.3 Code: 10035-1 Heart Rate 1: 68 bpm Height: 6'1" Respiratory Rate: 20 bpm Temperature: 37 .1 (C) / 98.8 (F) Weight: 313 lbs 08/30/2016 Blood Pressure 1: 146/80 Code: 8480-6 BMI: 41.7 Code: 43098-5 Heart Rate 1: 64 bpm Height: 6'1" Respiratory Rate: 24 bpm SpO2: 94% Tempera ture: 36.6 (C) / 97.8 (F) Weight: 316 lbs 08/27/2016 Blood Pressure 1: 124 Code: 8480-6 Heart Rate 1: 66 bpm Height: 6'2" Respiratory Rate: 18 bpm SpO2: 94% Temperature: 36.6 (C) / 97.8 (F) Weight: 07/02/2016 Blood Pressure 1: 12678 Code: 8480-6 BMI: 41.4 Code: 00628-8 Heart Rate 1: 68 bpm Height: 6'1" Respiratory Rate: 24 bpm SpO2: 94% Tempera ture: 36.6 (C) / 97.8 (F) Weight: 314 lbs 06/14/2016 Blood Pressure 1: 14682 Code: 8480-6 Heart Rate 1: 80 bpm Respiratory Rate: 20 bpm SpO2: 95% Temperature: 37.3 (C) / 99.2 (F) 06/13/2016 Blood Pressure 1: 146/84 Code: 8480-6 BMI: 40.5 Code: 47065-6 Heart Rate 1: 66 bpm Height: 6'1" Respiratory Rate: 28 bpm SpO2: 93% Tempera ture: 35.8 (C) / 96.4 (F) Weight: 307 lbs 05/14/2016 Blood Pressure 1: 146/90 Code: 8480-6 BMI: 41.2 Code: 77132-4 Heart Rate 1: 68 bpm Height: 6'1" Respiratory Rate: 26 bpm Temperature: 36 .8 (C) / 98.2 (F) Weight: 312 lbs 04/29/2016 Blood Pressure 1: 152/90 Code: 8480-6 BMI: 41.0 Code: 09554-0 Heart Rate 1: 68 bpm Height: 6'1" Respiratory Rate: 26 bpm SpO2: 94% Tempera ture: 36.1 (C) / 96.9 (F) Weight: 311 lbs 04/22/2016 Blood Pressure 1: 152/94 Code: 8480-6 BMI: 40.9 Code: 01853-3 Heart Rate 1: 68 bpm Height: 6'1" Respiratory Rate: 24 bpm SpO2: 94% Tempera ture: 36.2 (C) / 97.2 (F) Weight: 310 lbs 04/01/2016 Blood Pressure 1: 156/78 Code: 8480-6 BMI: 40.6 Code: 82228-1 Heart Rate 1: 84 bpm Height: 6'1" Respiratory Rate: 22 bpm SpO2: 95% Tempera ture: 37.1 (C) / 98.7 (F) Weight: 308 lbs 11/30/2015 Blood Pressure 1: 142/80 Code: 8480-6 BMI: 40.5 Code: 16515-5 Heart Rate 1: 88 bpm Height: 6'1" Respiratory Rate: 22 bpm Temperature: 36 .2 (C) / 97.2 (F) Weight: 307 lbs 08/29/2015 Blood Pressure 1: 132/70 Code: 8480-6 BMI: 40.0 Code: 76566-4 Heart Rate 1: 76 bpm Height: 6'1" Respiratory Rate: 24 bpm SpO2: 96% Tempera ture: 36.7 (C) / 98.0 (F) Weight: 303 lbs 08/14/2015 Blood Pressure 1: 126/80 Code: 8480-6 BMI: 39.4 Code: 40967-0 Heart Rate 1: 92 bpm Height: 6'1" Respiratory Rate: 24 bpm SpO2: 94% Tempera ture: 37.8 (C) / 100.0 (F) Weight: 299 lbs 08/09/2015 Blood Pressure 1: 146/82 Code: 8480-6 Heart Rate 1: 82 bpm Respiratory Rate: 22 bpm SpO2: 93% Temperature: 35.9 (C) / 96.6 (F) We ight: 310 lbs 05/22/2015 Blood Pressure 1: 156/76 Code: 8480-6 BMI: 41.0 Code: 74802-4 Heart Rate 1: 100 bpm Height: 6'1" Respiratory Rate: 22 bpm Temperature: 37 .2 (C) / 98.9 (F) Weight: 311 lbs 02/13/2015 Blood Pressure 1: 166/90 Code: 8480-6 BMI: 41.2 Code: 46303-8 Heart Rate 1: 72 bpm Height: 6'1" Respiratory Rate: 24 bpm SpO2: 93% Tempera ture: 36.9 (C) / 98.5 (F) Weight: 312 lbs 11/07/2014 Blood Pressure 1: 134/70 Code: 8480-6 BMI: 40.5 Code: 00363-9 Heart Rate 1: 76 bpm Height: 6'1" Respiratory Rate: 24 bpm Temperature: 36 .9 (C) / 98.4 (F) Weight: 307 lbs 10/04/2014 Blood Pressure 1: 144/86 Code: 8480-6 BMI: 40.1 Code: 18666-8 Heart Rate 1: 76 bpm Height: 6'1" Respiratory Rate: 28 bpm Temperature: 36 .6 (C) / 97.9 (F) Weight: 304 lbs 09/22/2014 Blood Pressure 1: 142/80 Code: 8480-6 BMI: 40.0 Code: 54951-1 Heart Rate 1: 80 bpm Height: 6'1" Respiratory Rate: 22 bpm SpO2: 96% Tempera ture: 36.6 (C) / 97.8 (F) Weight: 303 lbs 09/21/2014 Blood Pressure 1: 160/66 Code: 8480-6 BMI: 40.0 Code: 87758-1 Heart Rate 1: 90 bpm Height: 6'1" Respiratory Rate: 26 bpm SpO2: 94% Tempera ture: 35.7 (C) / 96.2 (F) Weight: 303 lbs 06/28/2014 Blood Pressure 1: 132/80 Code: 8480-6 BMI: 41.0 Code: 16538-7 Heart Rate 1: 64 bpm Height: 6' Respiratory Rate: 20 bpm Temperature: 36 .7 (C) / 98.0 (F) Weight: 302 lbs 06/10/2014 Blood Pressure 1: 152/70 Code: 8480-6 BMI: 41.1 Code: 17378-4 Heart Rate 1: 76 bpm Height: 6' Respiratory Rate: 20 bpm Temperature: 36 .6 (C) / 97.8 (F) Weight: 303 lbs 03/29/2014 Blood Pressure 1: 132/78 Code: 8480-6 BMI: 40.6 Code: 81333-3 Heart Rate 1: 84 bpm Height: 6' Respiratory Rate: 22 bpm Temperature: 37 .1 (C) / 98.8 (F) Weight: 299 lbs 11/30/2013 Blood Pressure 1: 136/84 Code: 8480-6 BMI: 39.2 Code: 18385-3 Heart Rate 1: 76 bpm Height: 6' Respiratory Rate: 20 bpm Temperature: 36 .8 (C) / 98.2 (F) Weight: 289 lbs 08/03/2013 Blood Pressure 1: 144/80 Code: 8480-6 Heart Rate 1: 86 bpm Respiratory Rate: 20 bpm Temperature: 36.6 (C) / 97.8 (F) Weight: 296 lbs 04/06/2013 Blood Pressure 1: 142/90 Code: 8480-6 BMI: 40.3 Code: 92438-8 Heart Rate 1: 88 bpm Height: 6' Respiratory Rate: 20 bpm Temperature: 36 .6 (C) / 97.8 (F) Weight: 297 lbs 12/01/2012 Blood Pressure 1: 124/78 Code: 8480-6 BMI: 38.7 Code: 41431-4 Heart Rate 1: 76 bpm Height: 6' Respiratory Rate: 20 bpm Temperature: 37 .2 (C) / 98.9 (F) Weight: 285 lbs 08/04/2012 Blood Pressure 1: 128/80 Code: 8480-6 BMI: 38.2 Code: 10562-0 Heart Rate 1: 76 bpm Height: 6' Respiratory Rate: 20 bpm Temperature: 37 .0 (C) / 98.6 (F) Weight: 282 lbs 05/29/2012 Blood Pressure 1: 138/78 Code: 8480-6 BMI: 36.6 Code: 64707-3 Heart Rate 1: 66 bpm Height: 6' Temperature: 36.7 (C) / 98.1 (F) Weight: 270 lbs 05/25/2012 Blood Pressure 1: 128/72 Code: 8480-6 BMI: 39.9 Code: 88808-6 Heart Rate 1: 74 bpm Height: 6' Temperature: 36.1 (C) / 97.0 (F) Weight: 294 lbs 04/07/2012 Blood Pressure 1: 124/76 Code: 8480-6 BMI: 39.9 Code: 19286-1 Heart Rate 1: 72 bpm Height: 6' Respiratory Rate: 20 bpm Temperature: 36 .9 (C) / 98.5 (F) Weight: 294 lbs 12/16/2011 Blood Pressure 1: 128/80 Code: 8480-6 BMI: 40.8 Code: 13511-2 Heart Rate 1: 74 bpm Height: 6' Temperature: 36.6 (C) / 97.8 (F) Weight: 301 lbs 12/03/2011 Blood Pressure 1: 132/76 Code: 8480-6 BMI: 40.8 Code: 49543-1 Heart Rate 1: 68 bpm Height: 6' Respiratory Rate: 20 bpm Temperature: 36 .8 (C) / 98.2 (F) Weight: 301 lbs 08/29/2011 Blood Pressure 1: 140/68 Code: 8480-6 BMI: 40.8 Code: 53657-3 Heart Rate 1: 80 bpm Height: 6' Respiratory Rate: 20 bpm Temperature: 36 .4 (C) / 97.6 (F) Weight: 301 lbs 05/30/2011 Blood Pressure 1: 134/82 Code: 8480-6 BMI: 41.5 Code: 65229-9 Heart Rate 1: 76 bpm Height: 6' [...] 1: 126/72 Code: 8480-6 BMI: 41.2 Code: 14837-2 Heart Rate 1: 76 bpm Height: 6' [...] 1: 152/90 Code: 8480-6 BMI: 37.7 Code: 74085-2 Heart Rate 1: 92 bpm Height: 6'1" [...] dm Encounters Encounter Performer Location Codes Date ([id number]) OFFICE/OUTPATIENT VISIT EST Diagnosis: Advanced chronic obstructive pulmonary disease[ICD10: J44.9] 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] [facility] CPT-4: 60882 05/10/2019 ([id number]) OFFICE/OUTPATIENT VISIT EST Diagnosis: Chronic obstructive pulmonary disease with (acute) exacerbation[ICD10: J44.1] Diagnosis: Hypokalemia[ICD10: E87.6] 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] Neela [facility] CPT-4: 39158 03/29/2019 ([id number]) NURSE/OUTPATIENT VISIT EST Diagnosis: PNEUMOCOCCAL VACCINE[ICD10: Z23] Neela HYMAN DO [facility] CPT-4: 96031 03/04/2019 ([id number]) OFFICE/OUTPATIENT VISIT EST Diagnosis: Chronic obstructive pulmonary disease with (acute) exacerbation[ICD10: J44.1] Diagnosis: Other nonspecific abnormal finding of lung field[ICD10: R91.8] Neela HYMAN DO [facility] CPT-4: 69621 01/05/2019 ([id number]) OFFICE/OUTPATIENT VISIT EST Diagnosis: Solitary pulmonary nodule[ICD10: R91.1] 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] Diagnosis: Tinea corporis[ICD10: B35.4] Neela HYMAN DO [facility] CPT-4: 55637 12/09/2018 ([id number]) OFFICE/OUTPATIENT VISIT EST Diagnosis: COUGH[ICD10: R05] Diagnosis: Chronic obstructive pulmonary disease, unspecified[ICD10: J44.9] Diagnosis: Other disorders of lung[ICD10: J98.4] Diagnosis: Other nonspecific abnormal finding of lung field[ICD10: R91.8] Neela HYMAN DO [facility] CPT-4: 80766 11/24/2018 ([id number]) OFFICE/OUTPATIENT VISIT EST Diagnosis: Pneumonia, unspecified organism[ICD10: J18.9] Amita HYMAN DO [facility] CPT-4: 50865 09/16/2018 ([id number]) OFFICE/OUTPATIENT VISIT EST Diagnosis: Pneumonia, unspecified organism[ICD10: J18.9] Neela HYMAN DO [facility] CPT-4: 66692 09/03/2018 ([id number]) OFFICE/OUTPATIENT VISIT EST Diagnosis: Personal history of pneumonia (recurrent)[ICD10: Z87.01] Diagnosis: Cough[ICD10: R05] Diagnosis: Essential (primary) hypertension[ICD10: I10] Diagnosis: Type 2 diabetes mellitus with hyperglycemia[ICD10: E11.65] Amita Santiago HYMAN [facility] CPT-4: 08277 08/27/2018 OFFICE/OUTPATIENT VISIT EST Diagnosis: Pneumonia, unspecified organism[ICD10: J18.9] Diagnosis: Chronic obstructive pulmonary disease with (acute) exacerbation[ICD10: J44.1] Diagnosis: Other specified symptoms and signs involving the circulatory and respiratory systems[ICD10: R09.89] Diagnosis: Essential (primary) hypertension[ICD10: I10] Amita MIRZALINE Octavio OUYA [facility] CPT-4: 40456 08/13/2018 OFFICE/OUTPATIENT VISIT EST Diagnosis: Pneumonia, unspecified organism[ICD10: J18.9] Diagnosis: Other specified symptoms and signs involving the circulatory and respiratory systems[ICD10: R09.89] Amita MIRZALINE Octavio LAWLERLiquipel [facility] CPT-4: 54048 08/11/2018 ([id number]) OFFICE/OUTPATIENT VISIT EST Diagnosis: Dyspnea, unspecified[ICD10: R06.00] Diagnosis: Chronic obstructive pulmonary disease with (acute) exacerbation[ICD10: J44.1] Diagnosis: Pneumonia, unspecified organism[ICD10: J18.9] Amita Henderson [employer]ELA [employer] [facility] CPT-4: 62092 07/16/2018 ([id number]) OFFICE/OUTPATIENT VISIT EST Diagnosis: Acute bronchitis due to other specified organisms[ICD10: J20.8] Diagnosis: Cough[ICD10: R05] Amita Santiago MIRZALINE [employer] [facility] T-4: 77863 07/13/2018 ([id number]) OFFICE/OUTPATIENT VISIT EST Diagnosis: Essential (primary) hypertension[ICD10: I10] Diagnosis: Chronic obstructive pulmonary disease, unspecified[ICD10: J44.9] Diagnosis: Type 2 diabetes mellitus with hyperglycemia[ICD10: E11.65] Diagnosis: Mixed hyperlipidemia[ICD10: E78.2] Neela STERLING [employer] [facility] CPT-4: 36693 06/03/2018 ([id number]) OFFICE/OUTPATIENT VISIT EST Diagnosis: Chronic obstructive pulmonary disease, unspecified[ICD10: J44.9] Gely Crouchdebbie MURILLO [employer] [facility] CPT-4: 02095 05/04/2018 ([id number]) OFFICE/OUTPATIENT VISIT EST Diagnosis: Essential (primary) hypertension[ICD10: I10] Diagnosis: Localized edema[ICD10: R60.0] Neela HYMAN DO [facility] CPT-4: 31138 03/03/2018 ([id number]) OFFICE/OUTPATIENT VISIT EST Diagnosis: Localized edema[ICD10: R60.0] Neela HYMAN DO [facility] CPT-4: 83495 02/17/2018 ([id number]) OFFICE/OUTPATIENT VISIT EST Diagnosis: FLU VACCINE[ICD10: Z23] Diagnosis: PNEUMOCOCCAL VACCINE[ICD10: Z23] Diagnosis: Type 2 diabetes mellitus without complications[ICD10: E11.9] Diagnosis: Mixed hyperlipidemia[ICD10: E78.2] Diagnosis: Essential (primary) hypertension[ICD10: I10] Diagnosis: Localized edema[ICD10: R60.0] Diagnosis: Chronic obstructive pulmonary disease, unspecified[ICD10: J44.9] Neela HYMAN DO [facility] CPT-4: 80253 02/10/2018 ([id number]) OFFICE/OUTPATIENT VISIT EST Diagnosis: Type 2 diabetes mellitus with hyperglycemia[ICD10: E11.65] Diagnosis: Mixed hyperlipidemia[ICD10: E78.2] Diagnosis: Essential (primary) hypertension[ICD10: I10] Diagnosis: Chronic obstructive pulmonary disease, unspecified[ICD10: J44.9] Diagnosis: Cutaneous abscess of back [any part, except buttock][ICD10: L02.212] Neela HYMAN [employer] CPT-4: 64765 11/05/2017 ([id number]) OFFICE/OUTPATIENT VISIT EST Diagnosis: Allergic urticaria[ICD10: L50.0] Gely HYMAN DO [facility] CPT-4: 97403 09/09/2017 ([id number]) OFFICE/OUTPATIENT VISIT EST Diagnosis: Generalized enlarged lymph nodes[ICD10: R59.1] Diagnosis: Acute gastritis without bleeding[ICD10: K29.00] Gely HYMAN DO [facility] CPT-4: 06267 08/07/2017 ([id number]) OFFICE/OUTPATIENT VISIT EST Diagnosis: Type 2 diabetes mellitus without complications[ICD10: E11.9] Diagnosis: Mixed hyperlipidemia[ICD10: E78.2] Diagnosis: Essential (primary) hypertension[ICD10: I10] Neela HYMAN [employer] CPT-4: 47606 08/04/2017 ([id number]) OFFICE/OUTPATIENT VISIT EST Diagnosis: Zoster without complications[ICD10: B02.9] Diagnosis: Acute sialoadenitis[ICD10: K11.21] Gely HYMAN [employer] CPT-4: 65244 06/04/2017 OFFICE/OUTPATIENT VISIT EST Diagnosis: Zoster without complications[ICD10: B02.9] Diagnosis: Acute sialoadenitis[ICD10: K11.21] Gely HYMAN [employer] CPT-4: 40565 06/02/2017 ([id number]) OFFICE/OUTPATIENT VISIT EST Diagnosis: Type 2 diabetes mellitus without complications[ICD10: E11.9] Diagnosis: Mixed hyperlipidemia[ICD10: E78.2] Diagnosis: Essential (primary) hypertension[ICD10: I10] Diagnosis: Chronic obstructive pulmonary disease, unspecified[ICD10: J44.9] Neela HYMAN [employer] CPT-4: 88017 05/05/2017 OFFICE/OUTPATIENT VISIT EST Diagnosis: Chronic obstructive pulmonary disease with acute lower respiratory infection[ICD10: J44.0] Diagnosis: Impacted cerumen, bilateral[ICD10: H61.23] Gely HYMAN [employer] CPT-4: 73915 04/10/2017 ([id number]) OFFICE/OUTPATIENT VISIT EST Diagnosis: FLU VACCINE[ICD10: Z23] Neela BUI [employer] CPT-4: 63504 03/28/2017 ([id number]) OFFICE/OUTPATIENT VISIT EST Diagnosis: Type 2 diabetes mellitus without complications[ICD10: E11.9] Diagnosis: Mixed hyperlipidemia[ICD10: E78.2] Diagnosis: Essential (primary) hypertension[ICD10: I10] Diagnosis: Chronic obstructive pulmonary disease, unspecified[ICD10: J44.9] Neela HYMAN [employer] CPT-4: 95445 02/03/2017 ([id number]) OFFICE/OUTPATIENT VISIT EST Diagnosis: Type 2 diabetes mellitus with hyperglycemia[ICD10: E11.65] Diagnosis: Mixed hyperlipidemia[ICD10: E78.2] Diagnosis: Essential (primary) hypertension[ICD10: I10] Diagnosis: Chronic obstructive pulmonary disease, unspecified[ICD10: J44.9] Neela HYMAN DO [facility] CPT-4: 84053 10/30/2016 ([id number]) NO CHARGE Diagnosis: Acute bronchitis, unspecified[ICD10: J20.9] Sammi MIRZALINE Octavio HYMAN DO [facility] CPT-4: 06281 08/30/2016 ([id number]) OFFICE/OUTPATIENT VISIT EST Diagnosis: Acute bronchitis, unspecified[ICD10: J20.9] Diagnosis: Other seasonal allergic rhinitis[ICD10: J30.2] Sammi MIRZALINE Octavio HYMAN [employer] [facility] CPT-4: 91401 08/27/2016 ([id number]) OFFICE/OUTPATIENT VISIT EST Diagnosis: Type 2 diabetes mellitus without complications[ICD10: E11.9] Diagnosis: Mixed hyperlipidemia[ICD10: E78.2] Diagnosis: Essential (primary) hypertension[ICD10: I10] Neela HYMAN DO [facility] CPT-4: 76648 07/02/2016 ([id number]) OFFICE/OUTPATIENT VISIT EST Diagnosis: Acute bronchitis, unspecified[ICD10: J20.9] Sammi MIRZALINE Octavio HYMAN DO [facility] CPT-4: 74522 06/14/2016 ([id number]) OFFICE/OUTPATIENT VISIT EST Diagnosis: Acute bronchitis, unspecified[ICD10: J20.9] Sammi MIRZALINE Octavio HYMAN DO [facility] CPT-4: 22294 06/13/2016 ([id number]) OFFICE/OUTPATIENT VISIT EST Diagnosis: Essential (primary) hypertension[ICD10: I10] Neela Yenni MIRZALINE Octavio HYMAN DO [facility] CPT-4: 77416 05/14/2016 ([id number]) OFFICE/OUTPATIENT VISIT EST Diagnosis: Essential (primary) hypertension[ICD10: I10] Neela ANNQUELINE Octavio HYMAN DO [facility] CPT-4: 51824 04/29/2016 ([id number]) OFFICE/OUTPATIENT VISIT EST Diagnosis: Unspecified abdominal pain[ICD10: R10.9] Diagnosis: Left lower quadrant pain[ICD10: R10.32] Diagnosis: Left upper quadrant pain[ICD10: R10.12] Diagnosis: Essential (primary) hypertension[ICD10: I10] Neela HYMAN DO [facility] CPT-4: 27171 04/22/2016 ([id number]) OFFICE/OUTPATIENT VISIT EST Diagnosis: Type 2 diabetes mellitus without complications[ICD10: E11.9] Diagnosis: Mixed hyperlipidemia[ICD10: E78.2] Diagnosis: Essential (primary) hypertension[ICD10: I10] Neela Sergeushainna MIRZANEELA JulissaMendez YENNI ARTHUR [facility] CPT-4: 43303 04/01/2016 ([id number]) OFFICE/OUTPATIENT VISIT EST Diagnosis: Type 2 diabetes mellitus with hyperglycemia[ICD10: E11.65] Diagnosis: Mixed hyperlipidemia[ICD10: E78.2] Diagnosis: Essential (primary) hypertension[ICD10: I10] Neela MIRZALINE JulissaMendez YENNI [facility] CPT-4: 85298 11/30/2015 ([id number]) OFFICE/OUTPATIENT VISIT EST Diagnosis: Type 2 diabetes mellitus with diabetic neuropathy, unspecified[ICD10: E11.40] Diagnosis: Essential (primary) hypertension[ICD10: I10] Diagnosis: Mixed hyperlipidemia[ICD10: E78.2] Neela Sergeushainna RONNA STERLING JulissaMendez YENNI [facility] CPT-4: 92015 08/29/2015 ([id number]) OFFICE/OUTPATIENT VISIT EST Diagnosis: COUGH[ICD10: R05] Diagnosis: Wheezing[ICD10: R06.2] Diagnosis: Type 2 diabetes mellitus with diabetic neuropathy, unspecified[ICD10: E11.40] Neela Sergechristina NEELA JulissaMendez YEN[facility] CPT-4: 14268 08/14/2015 ([id number]) OFFICE/OUTPATIENT VISIT EST Diagnosis: Other seasonal allergic rhinitis[ICD10: J30.2] Diagnosis: Dyspnea, unspecified[ICD10: R06.00] Diagnosis: Wheezing[ICD10: R06.2] Sammi Cunningham SERGECHRISTINA ZIEGLER CPT-4: 36498 08/09/2015 ([id number]) OFFICE/OUTPATIENT VISIT EST Diagnosis: Essential (primary) hypertension[ICD10: I10] Diagnosis: Type 2 diabetes mellitus with hyperglycemia[ICD10: E11.65] Diagnosis: Mixed hyperlipidemia[ICD10: E78.2] Neela ZHANG [employer] [facility] CPT-4: 45575 05/22/2015 ([id number]) OFFICE/OUTPATIENT VISIT EST Diagnosis: DM W/O COMPLICATION TYPE II[ICD9: 250.00] Diagnosis: - I - HYPERTENSION[ICD9: 401.9] Diagnosis: - I - HYPERLIPIDEMIA NEC/NOS[ICD9: 272.4] Diagnosis: Left hand paresthesia[ICD9: 782.0] Neela ZHANG [employer] [facility] CPT-4: 06479 02/13/2015 ([id number]) OFFICE/OUTPATIENT VISIT EST Diagnosis: HYPERLIPIDEMIA NEC/NOS[ICD9: 272.4] Diagnosis: DM W/O COMPLICATION TYPE II[ICD9: 250.00] Neela ZHANG [employer] [facility] CPT-4: 93234 11/07/2014 ([id number]) OFFICE/OUTPATIENT VISIT EST Diagnosis: ALLERGIC RHINITIS[ICD9: 477.9] Diagnosis: WHEEZING[ICD9: 786.07] Neela BADILLO [employer] [facility] CPT-4: 26503 10/04/2014 ([id number]) OFFICE/OUTPATIENT VISIT EST Diagnosis: BRONCHITIS, ACUTE[ICD9: 466.0] Diagnosis: WHEEZING[ICD9: 786.07] Loren BADILLO [employer] [facility] CPT-4: 98624 09/22/2014 ([id number]) OFFICE/OUTPATIENT VISIT EST Diagnosis: DYSPNEA[ICD9: 786.09] Diagnosis: WHEEZING[ICD9: 786.07] Diagnosis: Arrhythmia[ICD9: 427.9] Loren ZHANG [employer] [facility] CPT-4: 83657 09/21/2014 ([id number]) OFFICE/OUTPATIENT VISIT EST Diagnosis: DM W/O COMPLICATION TYPE II, 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] Diagnosis: - I - HYPERLIPIDEMIA NEC/NOS[ICD9: 272.4] Diagnosis: - I - HYPERTENSION[ICD9: 401.9] Neela Sergechristina MURILLO JulissaMendez [facility] CPT-4: 00005 06/28/2014 OFFICE/OUTPATIENT VISIT EST Diagnosis: SINUSITIS, ACUTE[ICD9: 461.9] Diagnosis: OTITIS MEDIA NOS[ICD9: 382.9] Sarah Jong ANNQUELINE JulissaMendez [facility] CPT-4: 08296 06/10/2014 ([id number]) OFFICE/OUTPATIENT VISIT EST Diagnosis: DM W/O COMPLICATION TYPE II[ICD9: 250.00] Diagnosis: - I - HYPERLIPIDEMIA NEC/NOS[ICD9: 272.4] Diagnosis: - I - HYPERTENSION[ICD9: 401.9] Neela Sergechristina MURILLO JulissaMendez [facility] CPT-4: 89322 03/29/2014 ([id number]) OFFICE/OUTPATIENT VISIT EST Diagnosis: DM W/O COMPLICATION TYPE II[ICD9: 250.00] Diagnosis: - I - HYPERTENSION[ICD9: 401.9] Diagnosis: - I - HYPERLIPIDEMIA NEC/NOS[ICD9: 272.4] Diagnosis: Hand lesion[ICD9: 709.9] Neela MURILLO JulissaMendez [facility] CPT-4: 23198 11/30/2013 ([id number]) OFFICE/OUTPATIENT VISIT EST Diagnosis: DM W/O COMPLICATION TYPE II[ICD9: 250.00] Diagnosis: HYPERLIPIDEMIA NEC/NOS[ICD9: 272.4] Diagnosis: HYPERTENSION[ICD9: 401.9] Neela Cunningham [facility] CPT-4: 58229 08/03/2013 ([id number]) OFFICE/OUTPATIENT VISIT EST Diagnosis: DM W/O COMPLICATION TYPE II, 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] Diagnosis: HYPERTENSION[ICD9: 401.9] Diagnosis: HYPERLIPIDEMIA NEC/NOS[ICD9: 272.4] Neela GREGORIO JulissaMendez [facility] CPT-4: 26689 04/06/2013 ([id number]) OFFICE/OUTPATIENT VISIT EST Diagnosis: DM W/O COMPLICATION TYPE II[ICD9: 250.00] Diagnosis: HYPERLIPIDEMIA NEC/NOS[ICD9: 272.4] Diagnosis: HYPERTENSION[ICD9: 401.9] Neela LAWLER NDER [facility] CPT-4: 13267 12/01/2012 ([id number]) OFFICE/OUTPATIENT VISIT EST Diagnosis: DM W/O COMPLICATION TYPE II[ICD9: 250.00] Diagnosis: HYPERTENSION[ICD9: 401.9] Diagnosis: HYPERLIPIDEMIA NEC/NOS[ICD9: 272.4] Neela ANNJYOTIYesenia GREGORIO SMendez SERGENDER [facility] CPT-4: 22396 08/04/2012 ([id number]) OFFICE/OUTPATIENT VISIT EST Diagnosis: URINARY FREQUENCY[ICD9: 788.41] Neela MIRZALINE JulissaMendez SERGENDER [employer] CPT-4: 69464 06/01/2012 OFFICE/OUTPATIENT VISIT EST Diagnosis: Agitation[ICD9: 307.9] Diagnosis: Frequent urination[ICD9: 788.41] Janet MURILLO JulissaMendez SERGENDER [employer] CPT-4: 39968 05/29/2012 OFFICE/OUTPATIENT VISIT EST Diagnosis: SINUSITIS, ACUTE[ICD9: 461.9] Diagnosis: OTALGIA[ICD9: 388.70] Neela MIRZALINE JulissaMendez SERGENDER [employer] CPT-4: 26252 05/25/2012 OFFICE/OUTPATIENT VISIT EST Diagnosis: DM W/O COMPLICATION TYPE II, 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] Diagnosis: HYPERTENSION[ICD9: 401.9] Diagnosis: HYPERLIPIDEMIA NEC/NOS[ICD9: 272.4] Neela Sergeushainna ANNJYOTIYesenia GREGORIO SMendez SERGENDER [employer] CPT-4: 54634 04/07/2012 OFFICE/OUTPATIENT VISIT EST Diagnosis: FINGER INJURY[ICD9: 959.5] Janet MURILLO SMendez [place] [facility] [employer] CPT-4: 98646 12/16/2011 ([id number]) OFFICE/OUTPATIENT VISIT EST Diagnosis: DM W/O COMPLICATION TYPE II, 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] Diagnosis: HYPERTENSION[ICD9: 401.9] Diagnosis: HYPERLIPIDEMIA NEC/NOS[ICD9: 272.4] Neela Yenni ARMAAN DARLINE SMendez SERGENDER [employer] CPT-4: 15524 12/03/2011 ([id number]) OFFICE/OUTPATIENT VISIT EST Diagnosis: DM W/O COMPLICATION TYPE II[ICD9: 250.00] Diagnosis: HYPERLIPIDEMIA NEC/NOS[ICD9: 272.4] Diagnosis: HYPERTENSION[ICD9: 401.9] Neela MURILLO SMendez ORE NDER DO [facility] CPT-4: 96703 08/29/2011 OFFICE/OUTPATIENT VISIT EST Diagnosis: DM W/O COMPLICATION TYPE II[ICD9: 250.00] Diagnosis: HYPERLIPIDEMIA NEC/NOS[ICD9: 272.4] Diagnosis: HYPERTENSION[ICD9: 401.9] Neela Cunningham ORE NDER DO [facility] CPT-4: 58361 05/30/2011 OFFICE/OUTPATIENT VISIT EST Diagnosis: SKIN SENSATION DISTURB[ICD9: 782.0] Neela Yenni ANNJYOTIYesenia GREGORIO S. ORENDER DO [facility] CPT-4: 72435 01/29/2011 OFFICE/OUTPATIENT VISIT EST Diagnosis: SKIN SENSATION DISTURB[ICD9: 782.0] Neela Sergeushainna ANNJYOTIYesenia GREGORIO S. ORENDER DO [facility] CPT-4: 23297 01/14/2011 OFFICE/OUTPATIENT VISIT EST Neela MURILLO S. ORE NDER DO [facility] CPT- 4: 96919 01/01/2011 OFFICE/OUTPATIENT VISIT EST Neela MURILLO S. ORE NDER DO [facility] CPT- 4: 56284 11/29/2010 ([id number]) OFFICE/OUTPATIENT VISIT EST Neela Yenni TITUS HORAN S. ORENDER DO [facility] CPT-4: 66074 08/28/2010 ([id number]) OFFICE/OUTPATIENT VISIT, EST Neela Yenni SETH JYOTIESTHER S. ORENDER DO [facility] CPT-4: 87704 06/05/2010 ([id number]) OFFICE/OUTPATIENT VISIT, EST Neela Sergeushainna SETH WILDE S. ORENDER DO [facility] CPT-4: 38370 02/05/2010 ([id number]) OFFICE/OUTPATIENT VISIT, EST Neela Sergeushainna [facility]HER [facility] CPT-4: 28451 10/09/2009 ([id number]) OFFICE/OUTPATIENT VISIT, EST Neela Sergechristina WILDE S. ORENDER DO [facility] CPT-4: 42626 08/22/2009 Plan of Care Planned Activity Notes Codes Status Date Visit Diagnosis Plan: Advanced chronic obstructive pul monary disease Discussion: Continue oxygen and pulmonary rehab Follow Up: 3 months ICD-9 : 496 ICD-10 : J44.9 05/10/2019 Visit Diagnosis Plan: Lymphoma involving lung Discussi on: Doing weekly lab and chemo ICD-9 : 202.82 ICD-10 : C85.99 05/10/2019 Appointment: Neela Hymantel: [address] [place], [place] [phone] FOLLOW UP 05/10/2019 Appointment: Neela Hymantel: [address] [place], [place] [phone] he called 04/14/19-- he was at physical [...] ICD-10 : E87.6 03/29/2019 Appointment: Neela Hymantel: [address] [place], [place] [phone] Hospital Follow Up 03/29/2019 Appointment: Neela Hyman WPtel: [address] [place], [place] [phone] [place] INJECTION 03/04/2019 Visit Diagnosis Plan: Chronic obstructiv e pulmonary disease with (acute) exacerbation Discussion: Increase SVNS with duoneb to QID Prednisone taper ICD-9 : 491.21 ICD-10 : J44.1 01/05/2019 Visit Diagnosis Plan: Other nonspecific abnormal findi ng of lung field Discussion: Referral to pulmonology--will likely need bronchoscopy--path results discussed ICD-9 : 786.6 ICD-10 : R91.8 01/05/2019 Appointment: Neela Hyman WPtel: [address] [place], [place] [address] [place] FOLLOW UP 01/05/2019 Patient Education: prednisone- [employer] Coupon [id number] https://www.eCareDiary/Vertro/resources/getResource/61/[email or web address]-[email or web address]-sg Completed 01/05/2019 Care Plan: Referral Order SNOMED-CT : 30 4000994 Pending 01/05/2019 Appointment: Neela Hyman WPtel: [address] [place], [place] [phone] [place] CANCELED 12/21/2018 Visit Diagnosis Plan: Tinea corporis Discussion: Diflu can--hold simvastatin and fenofibrate while taking ICD-9 : 110.5 ICD-10 : B35.4 12/09/2018 Visit Diagnosis Plan: Solitary pulmonary nodule Discus esmer: CT guided needle biopsy of RUL lung mass ICD-9 : 793.11 ICD-10 : R91.1 12/09/2018 Appointment: Neela Hyman WPtel: [address] [place], [place] [phone] [place] FOLLOW UP 12/09/2018 Appointment: Gely Harp [address] [place] [address] [place] NO SHOW 12/01/2018 Visit Diagnosis Plan: [...] : J44.9 11/24/2018 Appointment: Neela Hyman WPtel: [address] [place], [place] [phone] FOLLOW UP 11/24/2018 Care Plan: PET IMAGE FULL BODY LOINC : 4 2711-2 Pending 11/24/2018 Appointment: Neela Hyman WPtel: [address] [place] [address] [place] Consult 09/21/2018 Visit Diagnosis Plan: Pneumonia, unspecified organism Discussion: Patient clinically improved. Recent CT scan from 09/07 showed unresolved right upper lobe pneumonia. Finished another 7 days of levaquin. Will repeat CBC early next week. Order sent with patient to get done at [facility]. FU CT recommended in 4 weeks. Patient states understanding. ICD-9 : 486 ICD-10 : J18.9 09/16/2018 Appointment: Amita Henderson [facility] [place] [address] FOLLOW UP 09/16/2018 Visit Diagnosis Plan: Pneumonia, unspecified organism Discussion: Clinically patient feels and looks much better but need CT scan of chest due to ongoing round pneumonia in association with his known lymphoma ICD-9 : 486 ICD-10 : J18.9 09/03/2018 Appointment: Neela Hyman WPtel: [address] [place] [address] FOLLOW UP 09/03/2018 Care Plan: CT THORAX [...] ICD-10 : Z87.01 08/27/2018 Appointment: Amita Henderson [address] [place], [place] [phone] FOLLOW UP 08/27/2018 Visit Diagnosis Plan: Other [...] ICD-10 : I10 08/13/2018 Appointment: Amita Henderson [address] [place], [place] [phone] [facility] FOLLOW UP 08/13/2018 Appointment: Amita Henderson [address] [place], [place] [phone] CANCELED 08/13/2018 Patient Education: prednisone- [employer] Coupon [id number] https://www.Vertro.com/sampleSpeedDate/resources/getResource/61/kk35rn2n-3w76-5mr2-8a Completed 08/13/2018 Visit Diagnosis Plan: Other specified [...] J18.9 08/11/2018 Appointment: Amita Henderson [facility] [place] [phone] ACUTE ILLNESS 08/11/2018 Care Plan: CHEST X-RAY 2VW FRONTAL&LATL LOINC : 88931-4 Pending 07/20/2018 Visit Diagnosis Plan: Dyspnea, unspecified Discussion: CXR- to be completed at the hospital. Will call with results and any adjustments in plan. Solumedrol 125 administered in clinic Prednisone 20 mg BID x 5 days- start tomorrow ICD-9 : 786.09 ICD-10 : R06.00 07/16/2018 Appointment: Amita Henderson [facility] [place] [phone] ACUTE ILLNESS 07/16/2018 Patient Education: prednisone- [employer] Coupon [id number] https://www.eCareDiary/samplemd/resources/getResource/61/65p4p4sh-ar98-5dr4-r3 Completed 07/16/2018 Visit Diagnosis Plan: Acute bronchitis due to other sp ecified organisms Discussion: Kenalog 40 mg IM administered in clinic. Doxycycline called into [facility]. Take as directed. Continue nebulizer and Trelegy. Follow up if symptoms are not improving with treatment regimen. Patient states understanding of all instruction. ICD-9 : 466.0 ICD-10 : J20.8 07/13/2018 Appointment: Amita Henderson [facility] [facility] ACUTE ILLNESS 07/13/2018 Patient Education: doxycycline hyclate- OptimizeRX Cou saritha [id number] https://www.Vertro.Protonet/samplemd/resources/getResource/61/1q024v71-1f8u-2316-5o Completed 07/13/2018 Care Plan: [place] : [address]-9 Pending 07/13/2018 Care Plan: CBC Pending 07/13/2018 Care Plan: A1C HPLC LOINC : 76965-5 Pending 07/13/2018 Visit Diagnosis Plan: Mixed hyperlipidemia [...] : I10 06/03/2018 Appointment: Neela Hyman WPtel: [address] [place] [address] [place] FOLLOW UP 06/03/2018 Visit Diagnosis Plan: [...] ICD-10 : J44.9 05/04/2018 Appointment: Gely Harp [address] [place] [address] ACUTE ILLNESS 05/04/2018 Visit Diagnosis Plan: Localized edema Discussion: Cont inue lasix and potassium at every other day Recheck lab and fwup in 3mos Follow Up: 3 months ICD-9 : 782.3 ICD-10 : R60.0 03/03/2018 Appointment: Neela Hyman WPtel: [address] [place] [address] FOLLOW UP 03/03/2018 Patient Education: Patient Medication Summary Completed 03/03/2018 Visit Diagnosis Plan: Localized edema Discussion: Finch ge lasix and potassium to every other day Check Chem 7 in 2 weeks and fwup ICD-9 : 782.3 ICD-10 : R60.0 02/17/2018 App[facility]ment: [facility] [facility] [facility] 02/17/2018 Patient Education: Patient [...] R60.0 02/10/2018 Appointment: [facility] [facility] [facility] 02/10/2018 Patient Education: Patient [...] Appointment: Neela Hyman WPtel: [phone] [id number] FOLLOW UP 11/05/2017 Patient Education: Patient Medication Summary Completed 11/05/2017 Patient Education: Patient Medication Summary Completed 11/03/2017 Care Plan: [place] : [address]-1 Pending 11/03/2017 Care Plan: LIPID PANEL LOINC : 34326-8 Pending 11/03/2017 Care Plan: CBC Pending 11/03/2017 Care Plan: A1C HPLC LOINC : 03805-5 Pending 11/03/2017 Visit Diagnosis Plan: Allergic urticaria [...] : 708.0 ICD-10 : L50.0 09/09/2017 Appointment: Geyl Harp [address] [place], [place] [phone] ACUTE ILLNESS 09/09/2017 Patient Education: [...] : R59.1 08/07/2017 Appointment: Gely Harp [address] Hospital Follow Up 08/07/2017 Patient Education: Patient Medication Summary Completed 08/07/2017 Visit Diagnosis Plan: Type 2 diabetes mellitus without complications Discussion: Accuchecks daily Lab discussed Continue current meds ICD-9 : 250.00 ICD-10 : E11.9 08/04/2017 Visit Diagnosis Plan: Essential (primary) hypertension Discussion: Increase Cardizem CD to 360mg daily ICD-9 : 401.9 ICD-10 : I10 08/04/2017 Appointment: Neela Hyman WPtel: [facility] FOLLOW UP 08/04/2017 Patient Education: Patient Medication Summary Completed 08/04/2017 Patient Education: Patient Medication Summary Completed 07/31/2017 Care Plan: [place] : [address]-1 Pending 07/31/2017 Care Plan: ASSAY THYROID STIM HORMONE [place] 07/31/2017 Care Plan: LIPID PANEL LOINC : 75661-8 Pending 07/31/2017 Care Plan: CBC Pending 07/31/2017 Care Plan: A1C HPLC LOINC : 55927-6 Pending 07/31/2017 Patient Education: Patient Medication Summary Completed 06/19/2017 Patient Education: Patient Medication Summary Completed 06/09/2017 Care Plan: CT SOFT TISSUE [place] : [address]98-5 Pending 06/09/2017 Visit Diagnosis Plan: Acute sialoadenitis [...] : B02.9 06/04/2017 Appointment: Gely Harp [address] ACUTE ILLNESS 06/04/2017 Patient Education: Patient [...] : B02.9 06/02/2017 Appointment: Gely Harp [address] [place], [place] [phone] ACUTE ILLNESS 06/02/2017 Patient [...] E11.9 05/05/2017 Appointment: [facility]el[facility] [facility] [facility] 05/05/2017 Patient Education: Patient Medication Summary Completed 05/05/2017 Patient Education: Patient Medication Summary Completed 05/01/2017 Care Plan: A1C HPLC [facility] : 31114-6 Pending 05/01/2017 Visit Diagnosis Plan: Chronic obstructiv [...] ICD-10 : H61.23 04/10/2017 Appointment: Gely Harp [address] [place] [address] ACUTE ILLNESS 04/10/2017 Patient Education: Patient Medication Summary Completed 04/10/2017 Appointment: Neela Hyman WPtel: [address] [place] [address] INJECTION 03/28/2017 Patient Education: Patient Medication Summary [...] : J44.9 02/03/2017 Appointment: Neela Hyman WPtel: [address] [place] [address] FOLLOW UP 02/03/2017 Patient Education: Patient Medication Summary Completed 02/03/2017 Patient Education: Patient Medication Summary Completed 01/30/2017 Care Plan: [place] : [address]-9 Pending 01/30/2017 Care Plan: LIPID PANEL LOINC : 14177-5 Pending 01/30/2017 Care Plan: CBC Pending 01/30/2017 Care Plan: A1C HPLC LOINC : 17393-2 Pending 01/30/2017 Care Plan: ASSAY OF PSA [...] : E11.65 10/30/2016 Appointment: Neela Hyman WPtel: [address] [place], [place] [id number] [place] 10/29 lm ~sl 10/30 confirmed~sl FOLLOW UP 11/2016 Patient Education: Patient Medication Summary Completed 10/30/2016 Patient Education: Patient Medication Summary Completed 10/24/2016 Visit Diagnosis Plan: Acute bronchitis, unspecified Di scussion: Patient sounds and looks much improved Continue current regimen Keep appt with Dr Levi for Friday Follow up PRN ICD-9 : 466.0 ICD-10 : J20.9 08/30/2016 Appointment: [facility] [facility] [facility] / rang and rang rang / rang and [...] : J20.9 08/27/2016 Appointment: [facility]ammi [facility]era [facility] [facility] [facility] 08/27/2016 Patient Education: Patient Medication Summary Completed 08/27/2016 Care Plan: Referral Order SNOMED-CT : 30 [id number] Pending 08/27/2016 Visit Diagnosis Plan: Type 2 [...] : I10 07/02/2016 Appointment: Neela Hyman WPtel: [address] [place] [address] 07/01 rang and rang`sl FOLLOW UP 7 Patient Education: Patient Medication Summary Completed 07/02/2016 Patient Education: Patient Medication Summary Completed 06/27/2016 Care Plan: LIPID PANEL LOINC : 85205-9 Pending 06/27/2016 Care Plan: [place] : [address]9418-7 Pending 06/27/2016 Care Plan: A1C HPLC LOINC : 34588-4 Pending 06/27/2016 Visit Diagnosis Plan: Acute bronchitis, [...] ICD-10 : J20.9 06/14/2016 Appointment: Sammi Najera [address] [place], [place] [id number] FOLLOW UP 06/14/2016 Patient Education: Patient Medication [...] ICD-10 : J20.9 06/13/2016 Appointment: Sammi Najera [address] [place], [place] [address] ACUTE ILLNESS 06/13/2016 Patient Education: Patient Medication Summary Completed 06/13/2016 Care Plan: CHEST X-RAY 2VW FRONTAL&LATL LOINC : 09120-9 Pending 06/13/2016 Visit Plan: Increase metoprolol to 100mg po BID BP readings and BP check in 1month 05/14/2016 Appointment: Neela Hyman WPtel: [address] [place] [address] 05/13 rang and rang`sl FOLLOW UP 6 Patient Education: Patient Medication Summary Completed 05/14/2016 Visit Plan: Increase metoprolol to 50mg BID BP check in 1 week f/u BP appt 2 weeks consider musculoskeletal if pain returns 04/29/2016 Appointment: Neela Hyman WPtel: [address] [place] [address] 04/25 confimred~sl FOLLOW UP 04/29/2016 Patient Education: Patient Medication Summary Completed 04/29/2016 Visit Plan: Stat CT scan of abdomen/pelv is to look for stone Hydrate and use tramadol prn Increase metoprolol to 25mg po BID Will see urology pending CT scan results 04/22/2016 Appointment: Neela Hyman WPtel: [address] [place], [place] [phone] 04/17 confirmed-sp ACUTE ILLNESS [...] flu shot 04/01/2016 Appointment: Neela Hyman WPtel: [address] [place], [place] [phone] [place] FOLLOW UP 04/01/2016 Patient Education: Patient Medication Summary Completed 04/01/2016 Patient Education: [facility] - Saving AutoInj - 18-64 - Dynamic Heber medina ID Completed 04/01/2016 Patient Education: Patient Medication Summary Completed 03/28/2016 Care Plan: A1C HPLC LOINC : 66267-8 Pending 03/28/2016 Care Plan: COMPREH[place] : 279[address]-0 Pending 03/28/2016 Visit Plan: Lab discussed Continue curre nt meds Accuchecks daily 11/30/2015 Appointment: Neela Hyman WPtel: [address] [place] [address] 11/28 confirmed~sl FOLLOW UP 11/30/2015 Patient Education: Patient Medication Summary Completed 11/30/2015 Appointment: Neela Hyman WPtel: [address] [place] [address] US RESCHEDULED 11/28/2015 Patient Education: Patient Medication Summary Completed 11/23/2015 Care Plan: [place] : [address]-0 Pending 11/23/2015 Care Plan: LIPID PANEL LOINC : 17505-9 Pending 11/23/2015 Care Plan: CBC Pending 11/23/2015 Care Plan: A1C HPLC LOINC : 78010-6 Pending 11/23/2015 Visit Plan: Lab discussed Accuchecks richard ly Continue current meds Cymbalta helping with feet and mood 08/29/2015 Appointment: Neela Hyman WPtel: [address] [place], [place] [address] US FOLLOW UP 08/29/2015 Patient Education: Patient Medication Summary Completed 08/29/2015 Visit Plan: Check CXR Stop all steroids and steroid inhalers Use SVN with but change to duoneb Add singulair for allergy etiology Change fluoxetine to cymbalta 60mg daily Viagra samples given to try prn--warned of no nitrates 08/14/2015 Appointment: Neela Hyman WPtel: [address] [place] [address] lm to reschedule ~sl 07/27 lm ~sl 08/09 busy 08/10 conf irmed-sp Annual Well Visit 08/14/2015 Patient Education: Patient Medication Summary Completed 08/14/2015 Care Plan: CHEST X-RAY 2VW FRONTAL&LATL LOINC : 84320-4 Ordered 08/14/2015 Visit Plan: Decadron 8mg given [...] improving as expected 08/09/2015 Appointment: Sammi Najera [address] [place] [address] ER Follow UP 08/09/2015 Patient Education: Patient Medication Summary Completed 08/09/2015 Patient Education: [facility] - Saving AutoInj - 18-64 - Dynamic [...] it 05/22/2015 Appointment: Neela Hyman WPtel: [address] [place], [place] [phone] 05/17 confirmed~sl FOLLOW UP 05/22/2015 Patient Education: Patient Medication Summary Completed 05/22/2015 Patient Education: Patient Medication Summary Completed 05/15/2015 Visit Plan: Obtain EMGs done at [place] from when fractured left arm Lab discussed Accuchecks daily 02/13/2015 Appointment: Neela Hyman WPtel: [address] [place], [place] [phone] 02/10 confrimed FOLLOW UP 02/13/2015 Patient Education: Patient Medication Summary Completed 02/13/2015 Patient Education: Patient Medication Summary Completed 02/09/2015 Visit Plan: discussed lab add fenofibrat e 134mg po daily recheck fasting lab in 3 months, CBC, CMP, Lipids, hgb AIC 11/07/2014 Appointment: Neela Hyman WPtel: [address] [place], [place] [phone] 11/04 appt confirmed cn FOLLOW UP 015 Patient Education: Patient Medication Summary Completed 11/07/2014 Patient Education: Patient Medication Summary Completed 11/03/2014 Visit Plan: Continue loratadine 10mg richard ly Notify if symptoms return 10/04/2014 Appointment: Neela Hyman WPtel: [address] [place] [address] confirmed on 10/03 at 2:42pm FOLLOW UP 09/23 Patient Education: Patient Medication Summary Completed 10/04/2014 Appointment: Neela Hyman WPtel: [address] [place] [address] ACUTE ILLNESS 09/28/2014 Appointment: Loren Garza WPtel: [address] [place] [address] FOLLOW UP 09/22/2014 Patient Education: Patient Medication Summary Completed 09/22/2014 Appointment: Loren Garza WPtel: [address] [place] [address] ACUTE ILLNESS 09/21/2014 Patient Education: Patient Medication Summary Completed 09/21/2014 Patient Education: [facility] - Saving AutoInj - 18+ - Dynamic Portal ID Completed 09/21/2014 Visit Plan: Lab discussed Continue daily accuchecks Continue current meds 06/28/2014 Appointment: Neela Hyman WPtel: [address] [place], [place] [phone] FOLLOW UP 06/28/2014 Patient Education: Patient Medication Summary Completed 06/28/2014 Patient Education: Patient Medication Summary Completed 06/23/2014 Appointment: Sarah Sunshine WPtel: [address] [place] [address] ACUTE ILLNESS 06/10/2014 Patient Education: Patient Medication Summary Completed 06/10/2014 Patient Education: [facility] - Saving AutoInj - 18+ - Dynamic Portal ID Completed 06/10/2014 Visit Plan: Lab discussed Continue daily accuchecks Continue current meds 03/29/2014 Appointment: Neela Hyman WPtel: [address] [place], [place] [phone] FOLLOW UP 03/29/2014 Patient Education: Patient Medication Summary Completed 03/29/2014 Patient Education: Patient Medication Summary Completed 03/23/2014 Visit Plan: Lab discussed Continue curre nt meds and accuchecks See surgery for removal of hand lesion 11/30/2013 Appointment: Neela Hyman WPtel: [address] [place] [address] 11/29 no answer FOLLOW UP 11/30/2013 Patient Education: Patient Medication Summary Completed 11/30/2013 Visit Plan: Lab discussed Continue curre nt meds 08/03/2013 Appointment: Neela Hyman WPtel: [address] [place] [address] FOLLOW UP 08/03/2013 Patient Education: Patient Medication Summary Completed 08/03/2013 Visit Plan: Lab Discussed Will continue current meds and pt will get back on diet/exercise Check lab in 4mos and fwup 04/06/2013 Appointment: Neela Hyman WPtel: [address] [place], [place] [id number] FOLLOW UP 04/06/2013 Patient Education: Patient Medication Summary Completed 04/06/2013 Visit Plan: Lab discussed Continue daily accuchecks 12/01/2012 Appointment: Neela Hyman WPtel: [address] [place], [place] [address] 11/30 no answer FOLLOW UP 12/01/2012 Patient Education: Patient Medication Summary Completed 12/01/2012 Visit Plan: Continue current meds and da russell accuchecks Lab discussed 08/04/2012 Appointment: Neela Hyman WPtel: [address] [place], [place] [phone] FOLLOW UP 08/04/2012 Patient Education: Patient Medication Summary Completed 08/04/2012 Appointment: Neela Hyman WPtel: [address] [place], [place] [phone] [facility] 06/01/2012 Patient Education: Patient Medication Summary Completed 06/01/2012 Appointment: Janet Jean Baptiste WPtel: [address] [place], [place] [phone] FOLLOW UP 05/29/2012 Patient Education: Patient Medication Summary Completed 05/29/2012 Visit Plan: pt states Dr. Hyman told h is to increase his Prozac dose while she was talking to her at [facility]. Discussed that pt. should not increase or decrease dosage without 's knowledge. Pt. will seek hearing test here in town at the hearing aid place on [address]. Discussed that ear pain is likely caused by sinus pressure. Pt. will notify if no improvement. 05/25/2012 Appointment: Janet Jean Baptiste WPtel: [address] [place], [place] [id number] ACUTE ILLNESS 05/25/2012 Patient Education: Patient Medication Summary Completed 05/25/2012 Visit Plan: Continue current meds Contin ue daily accuchecks but alternate times Increase fish oil to 3gm daily 04/07/2012 Appointment: Neela Hyman WPtel: [address] [place], [place] [phone] 04/06 FOLLOW UP 04/07/2012 Patient Education: Patient Medication Summary Completed 04/07/2012 Appointment: Janet Jean Baptiste WPtel: [address] [place], [place] [id number] ACUTE ILLNESS 12/16/2011 Patient Education: Patient Medication Summary Completed 12/16/2011 Visit Plan: Increase 12/03/2011 Appointment: Neela Hyman WPtel: [address] [place], [place] [phone] FOLLOW UP 12/03/2011 Patient Education: Patient Medication Summary Completed 12/03/2011 Visit Plan: Continue current meds Contin ue accuchecks 08/29/2011 Appointment: Neela Hyman WPtel: [address] [place] [address] [place] FOLLOW UP 08/29/2011 Patient Education: Patient Medication Summary Completed 08/29/2011 Visit Plan: Continue current meds except restart zocor 05/30/2011 Appointment: Neela Hyman WPtel: [address] [place] [address] FOLLOW UP 05/30/2011 Patient Education: Patient Medication Summary Completed 05/30/2011 Visit Plan: Continue tennis elbow strap May go back to weight-lifing--light weigts every other day 01/29/2011 Appointment: Neela Hyman WPtel: [address] [place] [address] FOLLOW UP 01/29/2011 Patient Education: Patient Medication Summary Completed 01/29/2011 Visit Plan: Continue tennis elbow strap and anti-inflammatories 01/14/2011 Appointment: Neela Hyman WPtel: [address] [place] [address] FOLLOW UP 01/14/2011 Appointment: Janet Jean Baptiste WPtel: [address] [place] [address] NEW PATIENT 01/14/2011 Patient Education: Patient Medication Summary Completed 01/14/2011 Appointment: Neela Hyman WPtel: [address] [place] [address] [place] FOLLOW UP 01/08/2011 Appointment: Neela Hyman WPtel: [address] [place] [address] [place] FOLLOW UP 01/01/2011 Appointment: Neela Hyman WPtel: [address] [place] [address] UA 01/01/2011 Patient Education: Patient Medication Summary [...] given. 11/29/2010 Appointment: Janet Jean Baptiste WPtel: [address] [place] [address] ACUTE ILLNESS 11/29/2010 Patient Education: Patient Medication Summary Completed 11/29/2010 Visit Plan: Cont current meds Check CMP, Lipids, HbA1C 08/28/2010 Appointment: Neela Hyman WPtel: [address] [place] [address] FOLLOW UP 08/28/2010 Patient Education: Patient Medication Summary Completed 08/28/2010 Visit Plan: Cont current meds and accuch ecks Add Zocor 40mg q HS Check Lipids and HbA1C in 3mos 06/05/2010 Appointment: Neela Hyman WPtel: [address] [place] [address] FOLLOW UP 06/05/2010 Patient Education: Patient Medication Summary Completed 06/05/2010 Visit Plan: Check Lipids and HbA1C 02/05/2010 Appointment: Neela Hyman WPtel: [address] [place] [address] FOLLOW UP 02/05/2010 Patient Education: Patient Medication Summary Completed 02/05/2010 Visit Plan: HbA1C in 3mos. Continue Accu checks BID alternating times. Check HbA1C, CMP, Lipids 10/09/2009 Appointment: Neela Hyman WPtel: [address] [place] [address] FOLLOW UP 10/09/2009 Patient Education: Patient Medication Summary Completed 10/09/2009 Visit Plan: Saline nasal flushes prn. Ty lenol/Motrin prn headache. Notify if persists/symptoms worsening. 08/22/2009 Appointment: Neela Hyman WPtel: [id number] ACUTE ILLNESS 08/22/2009 Patient Education: Patient Medication Summary Completed 08/22/2009 Referral: Aub[facility] Rand [facility]el[facility] [phone] [id number] [place] Office will verfy his insurance then they will contact patient Completed Referral: Tarshanelsonpalomo Shahbaz Medina WPtel: [address] [facility] [address] [id number] [place] Referral Completed Referral: Ion Levi [address] [facility] C&D [id number] [place] Referral Appointment Requested Referral: Ion Levi [address] [facility] C&D [id number] [place] Referral Appointment Requested Instructions Comment . [...] with it . Obtain EMGs done at [place] from when fractured left arm Lab discussed [...] while she was talking to her at [facility]. Discussed that pt. should not increase or decrease dosage without Dr's knowledge. Pt. will seek hearing test here in town at the hearing aid place on [address]. Discussed that ear pain is likely caused [...]
--- OUTSIDE RECORDS SUMMARY | 2019-12-09 09:22 | XMS REPORT | CCD ---
Author Author Michael Hyman D.O. Organization [facility] Address [address] [place] [address] Phone Care Team Providers Care Medical [facility] Manager Name Role Phone Neela Hyman D.O., PP Unavailable CCM Unavailable Summary Purpose Interface Exchange Insurance Providers Payer name Policy type / Coverage type Covered green party ID Effective Begin Date Effective End Date [email or web address] Commercial Insurance [id number] Unknown Family History Family History data not found Social History Social History Element Codes Description Effective Dates Marital status Unknown 05/30/[address]: 3337072 Former smoker quit 25 years ago 01/01/2011 [...] Start Date Stop Date Status Fill Instructions MagOx 400 mg (241.3 mg magnesium) tablet RxNorm: 342190 1 Table t(s) Oral QD 04/26/2019 06/24/2019 Active Lasix 40 mg tablet RxNorm: 093422 40 MG PO DAILY 04/12/2019 No Stop Da te Active Benicar 40 mg tablet RxNorm: 265304 1 Tablet(s) Oral QD 03/29/2019 Active potassium chloride ER 20 mEq tablet,extended release RxNorm: 658098 1 Tablet(s) Oral two times a day 03/29/2019 06/27/2019 Active metformin 500 mg tablet RxNorm: 249682 2 Tablet(s) Oral two afshan es a day 03/29/2019 No Stop Date Active potassium chloride ER 20 mEq tablet,extended release RxNorm: 759043 1 Tablet(s) Oral QD 03/29/2019 03/28/2019 Inactive Benicar 40 mg tablet RxNorm: 620024 1 Tablet(s) Oral QD 03/29/2019 Inactive MagOx 400 mg (241.3 mg magnesium) tablet RxNorm: 900110 1 Table t(s) Oral QD 03/29/2019 04/25/2019 Inactive fenofibrate micronized 134 mg capsule RxNorm: 897259 TA KE ONE CAPSULE BY MOUTH EVERY DAY 03/05/2019 08/31/2019 Active duloxetine 60 mg capsule,delayed release RxNorm: 933073 1 Capsu le(s) PO QD 01/28/2019 07/26/2019 Active Trelegy Ellipta 100 mcg-62.5 mcg-25 mcg powder for inhalatio n RxNorm: 3126564 1 Puff(s) INH QD 01/06/2019 12/31/2019 Active 90 day supply prednisone 20 mg tablet RxNorm: 097784 1 Tablet(s) PO T ID for 3 days then 1 po BID for 3 days then 1 po daily for 3 days 01/05/2019 03/28/2019 Inacti ve metformin ER 1,000 mg tablet,extended release 24hr RxNorm: 1 298503 TAKE TWO TABLETS (1000MG) BY MOUTH TWO TIMES A DAY 12/22/2018 03/28/2019 Inacti ve Diflucan 100 mg tablet RxNorm: 991434 1 Tablet(s) PO QD 12/09/2018 Inactive albuterol sulfate 2.5 mg/3 mL (0.083 %) solution for n ebulization RxNorm: 707699 3 Milliliter(s) INH ONE VIAL VIA NEBULIZER EVERY 4 HOURS 019 07/21/2019 Active [AttnRPh: Saving apply/adjudicate RxGRP: SG20 RxBIN:[id number] RxPCN: ID#:[id number]] prednisone 20 mg tablet RxNorm: 672249 1 Tablet(s) PO B ID for 4 days then 1 po daily for 4 days 11/24/2018 01/04/2019 Inactive Trelegy Ellipta 100 mcg-62.5 mcg-25 mcg powder for inhalatio n RxNorm: 6772906 1 Puff(s) INH QD 10/27/2018 01/06/2019 Inactive 90 day supply diltiazem ER 360 mg capsule,24 hr,extended release RxNorm: 8 97384 TAKE ONE CAPSULE BY MOUTH AT BEDTIME -REPLACES 300MG 10/13/2018 04/10/2019 Inactive metoprolol succinate ER 100 mg tablet,extended release 24 hr RxNorm: 967687 TAKE ONE TABLET BY MOUTH TWICE A DAY 10/13/2018 07/09/2019 Active Trelegy Ellipta 100 mcg-62.5 mcg-25 mcg powder for inhalatio n RxNorm: 9711924 INHALE ONE PUFF ONCE DAILY 09/07/2018 10/27/2018 Inactive Levaquin 750 mg tablet RxNorm: 382373 1 Tablet(s) PO QD 09/07/2018 Inactive Levaquin 750 mg tablet RxNorm: 968252 1 Tablet(s) PO QD 09/07/2018 Inactive prednisone 20 mg tablet RxNorm: 288173 2 Tablet(s) PO QAM 08/13/2018 08/19/2018 Inactive Levaquin 500 mg tablet RxNorm: 058015 1 Tablet(s) PO QD 08/11/2018 Inactive fenofibrate micronized 134 mg capsule RxNorm: 872943 TA KE ONE CAPSULE BY MOUTH EVERY DAY 08/10/2018 02/05/2019 Inactive prednisone 20 mg tablet RxNorm: 900327 1 Tablet(s) PO BID 07/16/2018 07/20/2018 Inactive doxycycline hyclate 100 mg capsule RxNorm: 5145149 1 Capsule(s) PO BID 07/13/2018 07/22/2018 Inactive duloxetine 60 mg capsule,delayed release RxNorm: 070613 TAKE ONE CAPSULE BY MOUTH ONCE A DAY 07/08/2018 01/28/2019 Inactive Lasix 40 mg tablet RxNorm: 060167 1 TABLET(S) PO QAM 06/08/201809/05 Inactive potassium chloride ER 20 mEq tablet,extended release(p art/cryst) RxNorm: 4202432 1 TABLET(S) PO QD 06/08/2018 09/05/2018 Inactive metformin ER 1,000 mg tablet,extended release 24hr RxNorm: 1 480687 TAKE TWO TABLETS (1000MG) BY MOUTH TWO TIMES A DAY 06/01/2018 11/27/2018 Inacti ve Zocor 40 mg tablet RxNorm: 156373 TAKE ONE TABLET BY M OUTH EVERY NIGHT AT BEDTIME 05/11/2018 08/03/2019 Active Benicar HCT 40 mg-25 mg tablet RxNorm: 660750 TAKE ONE TABLET BY MOUTH ONCE DAILY 05/11/2018 03/28/2019 Inactive Trelegy Ellipta 100 mcg-62.5 mcg-25 mcg powder for inhalatio n RxNorm: 3389077 1 PUFF(S) INH QD 04/06/2018 07/04/2018 Inactive diltiazem ER 360 mg capsule,24 hr,extended release RxNorm: 8 15247 1 Capsule(s) PO QHS replaces 300mg dose 03/30/2018 09/25/2018 Inactive Trelegy Ellipta 100 mcg-62.5 mcg-25 mcg powder for inhalatio n RxNorm: 0080972 1 Puff(s) INH QD 02/24/2018 02/23/2018 Inactive Trelegy Ellipta 100 mcg-62.5 mcg-25 mcg powder for inhalatio n RxNorm: 8843491 1 Puff(s) INH QD 02/24/2018 02/23/2018 Inactive Trelegy Ellipta 100 mcg-62.5 mcg-25 mcg powder for inhalatio n RxNorm: 0822332 1 Puff(s) INH QD 02/24/2018 04/05/2018 Inactive Lasix 40 mg tablet RxNorm: 875349 1 Tablet(s) PO QAM 02/10/201803/11 Inactive potassium chloride ER 20 mEq tablet,extended release(p art/cryst) RxNorm: 2268794 1 Tablet(s) PO QD 02/10/2018 03/11/2018 Inactive fenofibrate micronized 134 mg capsule RxNorm: 481701 1 Capsule( s) PO QD 01/30/2018 07/28/2018 Inactive metoprolol succinate ER 100 mg tablet,extended release 24 hr RxNorm: 788639 TAKE ONE TABLET BY MOUTH TWICE A DAY 12/30/2017 09/25/2018 Inactive metformin ER 1,000 mg tablet,extended release 24hr RxNorm: 1 616450 1 Tablet(s) PO BID 11/17/2017 05/15/2018 Inactive [SAVINGS FOR NON -COVERED DRUGS -- BIN:423616, PCN: ASPROD1, Group: XXXXX, ID# [id number], Questions: . THIS IS NOT INSURANCE.] Benicar HCT 40 mg-25 mg tablet RxNorm: 118145 1 Tablet(s) PO QD 05/10/2018 Inactive [SAVINGS FOR NON-COVERED JESU GS -- BIN:472116, PCN: ASPROD1, Group: XXXXX, ID# [id number], Questions: . THIS IS NOT INSURANCE.] Bactroban 2 % topical cream RxNorm: 631163 Application TOP BID 10/2409/02/2018 Inactive clindamycin HCl 300 mg capsule RxNorm: 589397 2 Capsule(s) PO TID 0 11/05/2017 11/18/2017 Inactive duloxetine 60 mg capsule,delayed release RxNorm: 529231 Capsule(s) TAKE ONE CAPSULE BY MOUTH ONCE DAILY 09/24/2017 09/23/2017 Inactive triamcinolone acetonide 0.1 % topical ointment RxNorm: 0316517 1 TOP BID 09/09/2017 11/04/2017 Inactive Bactrim DS 800 mg-160 mg tablet RxNorm: 652071 1 Tablet(s) PO BID 0 08/07/2017 08/13/2017 Inactive metronidazole 500 mg tablet RxNorm: 790260 1 Tablet(s) PO BID 08/0708/13/2017 Inactive diltiazem ER 360 mg capsule,24 hr,extended release RxNorm: 8 63589 1 Capsule(s) PO QHS replaces 300mg dose 08/04/2017 01/30/2018 Inactive fenofibrate micronized 134 mg capsule RxNorm: 797858 1 Capsule( s) PO QD 07/21/2017 01/30/2018 Inactive Zocor 40 mg tablet RxNorm: 677147 1 Tablet(s) PO QHS 07/21/201705/10 Inactive GB duloxetine 60 mg capsule,delayed release RxNorm: 351097 Capsule(s) TAKE ONE CAPSULE BY MOUTH ONCE DAILY 06/24/2017 09/24/2017 Inactive Cleocin HCl 300 mg capsule RxNorm: 808946 2 Capsule(s) PO BID 06/0206/08/2017 Inactive acyclovir 800 mg tablet RxNorm: 207518 1 Tablet(s) PO 5x day 201706/08/2017 Inactive diltiazem ER 300 mg capsule,24 hr,extended release RxNorm: 8 39017 1 Capsule(s) PO QHS replaces 240mg dose 05/05/2017 08/03/2017 Inactive ipratropium-albuterol 0.5 mg-3 mg(2.5 mg base)/3 mL ne bulization soln RxNorm: 2002972 1 Unit Dose INH Q4H as needed 05/05/2017 01/04/2019 Inactive metformin ER 1,000 mg tablet,extended release 24hr RxNorm: 1 348579 1 Tablet(s) PO BID 04/28/2017 11/17/2017 Inactive [SAVINGS FOR NON -COVERED DRUGS -- BIN:537448, PCN: ASPROD1, Group: XXXXX, ID# [id number], Questions: . THIS IS NOT INSURANCE.] diltiazem ER (XR/XT) 240 mg capsule,extended release 2 4 hr, controlled RxNorm: 308222 TAKE ONE CAPSULE BY MOUTH EVERY DAY 04/15/2017 05/04/2017 Inact avani prednisone 20 mg tablet RxNorm: 255495 1 Tablet(s) PO QD 04/10/2017 1 06/14/2016 Inactive Breo Ellipta 200 mcg-25 mcg/dose powder for inhalation RxNor m: 1514547 1 Puff(s) INH QD 04/10/2017 02/09/2018 Inactive Breo Ellipta 200 mcg-25 mcg/dose powder for inhalation RxNor m: 5301517 1 Puff(s) INH QD 04/10/2017 04/09/2017 Inactive Levaquin 500 mg tablet RxNorm: 330488 1 Tablet(s) PO QD 04/10/2017 Inactive metoprolol succinate ER 100 mg tablet,extended release 24 hr RxNorm: 840905 TAKE ONE TABLET BY MOUTH TWICE A DAY 03/24/2017 12/18/2017 Inactive fenofibrate micronized 134 mg capsule RxNorm: 511791 1 Capsule( s) PO QD 01/16/2017 07/21/2017 Inactive Benicar HCT 40 mg-25 mg tablet RxNorm: 670004 1 Tablet(s) PO QD 11/17/2017 Inactive [SAVINGS FOR NON-COVERED JESU GS -- BIN:100711, PCN: ASPROD1, Group: XXXXX, ID# [id number], Questions: . THIS IS NOT INSURANCE.] metoprolol succinate ER 100 mg tablet,extended release 24 hr RxNorm: 977085 1 Tablet(s) PO BID 10/16/2016 03/23/2017 Inactive diltiazem ER (XR/XT) 240 mg capsule,extended release 2 4 hr, controlled RxNorm: 827694 1 Capsule(s) PO QD 10/16/2016 04/13/2017 Inactive [SAVINGS FOR NON- COVERED DRUGS -- BIN:767917, PCN: ASPROD1, Group: XXXXX, ID# [id number], Questions: . THIS IS NOT INSURANCE.] metformin ER 1,000 mg tablet,extended release 24hr RxNorm: 8 73941 1 Tablet(s) PO BID 10/16/2016 04/28/2017 Inactive [SAVINGS FOR NON -COVERED DRUGS -- BIN:989261, PCN: ASPROD1, Group: XXXXX, ID# [id number], Questions: . THIS IS NOT INSURANCE.] Zocor 40 mg tablet RxNorm: 241344 1 Tablet(s) PO QHS 10/16/201607/21 Inactive GB Singulair 10 mg tablet RxNorm: 426957 Tablet(s) 1 TABLET(S) PO QHS 08/27/2016 09/02/2018 Inactive prednisone 20 mg tablet RxNorm: 438737 1 Tablet(s) PO QD 08/27/2016 0 08/31/2016 Inactive ipratropium-albuterol 0.5 mg-3 mg(2.5 mg base)/3 mL ne bulization soln RxNorm: 0747345 1 Unit Dose INH Q4H as needed 08/27/2016 05/04/2017 Inactive metoprolol succinate ER 100 mg tablet,extended release 24 hr RxNorm: 181911 TAKE ONE TABLET BY MOUTH TWICE A DAY 08/05/2016 10/16/2016 Inactive duloxetine 60 mg capsule,delayed release RxNorm: 483476 TAKE ONE CAPSULE BY MOUTH ONCE DAILY 08/05/2016 06/24/2017 Inactive prednisone 20 mg tablet RxNorm: 274428 1 Tablet(s) PO QD 06/14/2016 0 06/18/2016 Inactive ipratropium-albuterol 0.5 mg-3 mg(2.5 mg base)/3 mL ne bulization soln RxNorm: 3765584 1 Unit Dose INH Q4H as needed 06/13/2016 08/26/2016 Inactive Levaquin 500 mg tablet RxNorm: 279029 1 Tablet(s) PO QD 06/13/2016 Inactive metoprolol succinate ER 100 mg tablet,extended release 24 hr RxNorm: 824816 1 Tablet(s) PO BID replaces 50mg dose 05/14/2016 07/12/2016 Inactive metoprolol succinate ER 50 mg tablet,extended release 24 hr RxNorm: 621168 1 Tablet(s) PO BID 04/29/2016 05/13/2016 Inactive prednisone 20 mg tablet RxNorm: 845445 1 Tablet(s) PO BID 04/22/2016 04/21/2016 Inactive prednisone 20 mg tablet RxNorm: 298629 1 Tablet(s) PO BID 04/22/2016 04/28/2016 Inactive Singulair 10 mg tablet RxNorm: 520162 Tablet(s) 1 TABLET(S) PO QHS 04/01/2016 08/26/2016 Inactive metoprolol succinate ER 25 mg tablet,extended release 24 hr RxNorm: 870091 1 Tablet(s) PO QHS for blood pressure 04/01/2016 05/13/2016 Inactive fenofibrate micronized 134 mg capsule RxNorm: 077400 TA KE ONE CAPSULE BY MOUTH DAILY 01/25/2016 01/16/2017 Inactive duloxetine 60 mg capsule,delayed release RxNorm: 838133 TAKE ONE CAPSULE BY MOUTH ONCE DAILY 01/25/2016 08/04/2016 Inactive Zocor 40 mg tablet RxNorm: 997619 TAKE ONE TABLET BY MOUTH AT B EDTIME 11/13/2015 10/16/2016 Inactive GB metformin ER 1,000 mg tablet,extended release 24hr RxNorm: 8 98409 1 Tablet(s) PO BID 10/26/2015 10/16/2016 Inactive [SAVINGS FOR NON -COVERED DRUGS -- BIN:441090, PCN: ASPROD1, Group: XXXXX, ID# [id number], Questions: . THIS IS NOT INSURANCE.] Benicar HCT 40 mg-25 mg tablet RxNorm: 247565 1 Tablet(s) PO QD 06/201511/11/2016 Inactive [SAVINGS FOR NON-COVERED JESU GS -- BIN:467322, PCN: ASPROD1, Group: XXXXX, ID# [id number], Questions: . THIS IS NOT INSURANCE.] diltiazem ER (XR/XT) 240 mg capsule,extended release,control led RxNorm: 790434 1 Capsule(s) PO QD 10/26/2015 10/15/2016 Inactive [SAVINGS FOR NO N-COVERED DRUGS -- BIN:808076, PCN: ASPROD1, Group: XXXXX, ID# [id number], Questions: . THIS IS NOT INSURANCE.] Singulair 10 mg tablet RxNorm: 039182 1 TABLET(S) PO QHS 09/18/2015 1 05/31/2015 Inactive Viagra 100 mg tablet RxNorm: 391874 1 Tablet(s) PO as needed 201511/23/2018 Inactive Singulair 10 mg tablet RxNorm: 247313 1 Tablet(s) PO QHS 08/16/2015 0 08/15/2015 Inactive Singulair 10 mg tablet RxNorm: 620439 1 Tablet(s) PO QHS 08/16/2015 0 09/14/2015 Inactive duloxetine 60 mg capsule,delayed release RxNorm: 466591 1 Capsule(s) PO QD replaces fluoxetine 08/14/2015 01/24/2016 Inactive ipratropium-albuterol 0.5 mg-3 mg(2.5 mg base)/3 mL ne bulization soln RxNorm: 7729547 1 Unit Dose INH Q4H as needed 08/14/2015 06/12/2016 Inactive prednisone 20 mg tablet RxNorm: 328899 Take 3 tabs PO o nce daily x 3 days, then 2 tabs PO once daily x 3 days and then 1 tab PO once daily x 3 days 08/09/2015 08/13/2015 Inactive Symbicort 160 mcg-4.5 mcg/actuation HFA aerosol inhaler RxNo rm: 4447593 2 Puff(s) INH BID 08/09/2015 08/13/2015 Inactive Zocor 40 mg tablet RxNorm: 310697 1 Tablet(s) PO QHS 05/23/201511/11 Inactive [AttnRPh: Saving apply/adjudicate RxGRP: SG20 RxBIN:[id number] RxPCN: ID#:[id number]] Benicar HCT 40 mg-25 mg tablet RxNorm: 639848 1 Tablet(s) PO QD 10/26/2015 Inactive [SAVINGS FOR NON-COVERED JESU GS -- BIN:900740, PCN: ASPROD1, Group: XXXXX, ID# [id number], Questions: . THIS IS NOT INSURANCE.] diltiazem ER (XR/XT) 240 mg capsule,extended release,control led RxNorm: 920819 1 Capsule(s) PO QD 04/24/2015 10/20/2015 Inactive [SAVINGS FOR NO N-COVERED DRUGS -- BIN:593218, PCN: ASPROD1, Group: XXXXX, ID# XXXXXXX, Questions: . THIS IS NOT INSURANCE.] fluoxetine 40 mg capsule RxNorm: 102807 1 Capsule(s) PO QD 04/24/20 15 08/13/2015 Inactive [SAVINGS FOR NON-COVERED JESU GS -- BIN:909345, PCN: ASPROD1, Group: XXXXX, ID# [id number], Questions: . THIS IS NOT INSURANCE.] Zocor 40 mg tablet RxNorm: 759389 TABLET(S) 1 TABLET(S) PO QHS 01/2505/23/2015 Inactive [AttnRPh: Saving apply/adjud icate RxGRP:SG20 RxBIN:[id number] RxPCN: ID#:[id number]] metformin ER 1,000 mg tablet,extended release 24hr RxNorm: 8 40698 1 TABLET(S) PO BID 01/29/2015 10/26/2015 Inactive [SAVINGS FOR NON -COVERED DRUGS -- BIN:085781, PCN: ASPROD1, Group: XXXXX, ID# XXXXXXX, Questions: . THIS IS NOT INSURANCE.] fenofibrate micronized 134 mg capsule RxNorm: 428286 1 CAPSULE( S) PO QD 01/23/2015 01/17/2016 Inactive fenofibrate micronized 134 mg capsule RxNorm: 098162 1 Capsule( s) PO QD 11/07/2014 01/22/2015 Inactive diltiazem ER (XR/XT) 240 mg capsule,extended release,control led RxNorm: 774583 1 Capsule(s) PO QD 10/24/2014 04/24/2015 Inactive [SAVINGS FOR NO N-COVERED DRUGS -- BIN:887847, PCN: ASPROD1, Group: XXXXX, ID# [id number], Questions: . THIS IS NOT INSURANCE.] Benicar HCT 40 mg-25 mg tablet RxNorm: 631454 1 Tablet(s) PO QD 05/201404/24/2015 Inactive [SAVINGS FOR NON-COVERED JESU GS -- BIN:354585, PCN: ASPROD1, Group: XXXXX, ID# [id number], Questions: . THIS IS NOT INSURANCE.] fluoxetine 40 mg capsule RxNorm: 390332 1 Capsule(s) PO QD 10/25/19 15 04/24/2015 Inactive [SAVINGS FOR NON-COVERED JESU GS -- BIN:228395, PCN: ASPROD1, Group: XXXXX, ID# [id number], Questions: . THIS IS NOT INSURANCE.] azithromycin 500 mg tablet RxNorm: 959402 1 Tablet(s) PO QD 015 09/27/2014 Inactive [SAVINGS FOR NON-COVERED JESU GS -- BIN:091841, PCN: ASPROD1, Group: XXXXX, ID# XXXXXXX, Questions: . THIS IS NOT INSURANCE.] albuterol sulfate 2.5 mg/3 mL (0.083 %) solution for n ebulization RxNorm: 707227 3 Milliliter(s) INH ONE VIAL VIA NEBULIZER EVERY 4 HOURS 015 11/19/2014 Inactive [AttnRPh: Saving apply/adjudicate RxGRP: SG20 RxBIN:[id number] RxPCN: ID#:[id number]] Zocor 40 mg tablet RxNorm: 594891 TABLET(S) 1 TABLET(S ) PO QHS 1 TABLET(S) PO QHS 09/04/2014 02/21/2015 Inactive [AttnRPh: Saving apply/adjudicate RxGRP:SG20 RxBIN:[id number] RxPCN: ID#:[id number]] metformin ER 1,000 mg tablet,extended release 24hr RxNorm: 8 41284 1 Tablet(s) PO BID 08/04/2014 01/28/2015 Inactive [SAVINGS FOR NON -COVERED DRUGS -- BIN:722939, PCN: ASPROD1, Group: XXXXX, ID# XXXXXXX, Questions: . THIS IS NOT INSURANCE.] Bromfed DM 2 mg-30 mg-10 mg/5 mL syrup RxNorm: 5835534 1 -2 Teaspoon(s) PO Q4H as needed for cough 06/10/2014 06/19/2014 Inactive [SAVINGS FOR UN INSURED PATIENTS -- BIN:700984, PCN: ASPROD1, Group: AME08, ID# [id number], Process claim through [employer], for questions: . THIS IS NOT INSURANCE.] Augmentin 875 mg-125 mg tablet RxNorm: 037187 1 Tablet(s) PO Q12H 0 06/10/2014 06/19/2014 Inactive [AttnRPh: Saving apply/adjud icate RxGRP:SG20 RxBIN:[id number] RxPCN:HT ID#:[id number]] Zocor 40 mg tablet RxNorm: 532397 Tablet(s) 1 TABLET(S ) PO QHS 1 TABLET(S) PO QHS 05/25/2014 08/22/2014 Inactive [AttnRPh: Saving apply/adjudicate RxGRP:SG20 RxBIN:[id number] RxPCN:HT ID#:[id number]] fluoxetine 40 mg capsule RxNorm: 478208 1 Capsule(s) PO QD 04/29/20 14 10/24/2014 Inactive [AttnRPh: Saving apply/adjud icate RxGRP:SG20 RxBIN:[id number] RxPCN:HT ID#:[id number]] diltiazem ER (XR/XT) 240 mg capsule,extended release,control led RxNorm: 031869 1 Capsule(s) PO QD 04/29/2014 10/24/2014 Inactive [AttnRPh: Savin g apply/adjudicate RxGRP:SG20 RxBIN:[id number] RxPCN:HT ID#:[id number]] Benicar HCT 40 mg-25 mg tablet RxNorm: 351045 1 Tablet(s) PO QD 09/201310/24/2014 Inactive [AttnRPh: Saving apply/adjud icate RxGRP:SG20 RxBIN:[id number] RxPCN:HT ID#:[id number]] Zocor 40 mg tablet RxNorm: 502698 1 TABLET(S) PO QHS 1 TABLET(S ) PO QHS 03/07/2014 05/25/2014 Inactive [AttnRPh: Saving chelsie ly/adjudicate RxGRP:SG20 RxBIN:[id number] RxPCN:HT ID#:[id number]] Zocor 40 mg tablet RxNorm: 837885 1 Tablet(s) PO QHS 1 TABLET(S ) PO QHS 12/06/2013 03/05/2014 Inactive [AttnRPh: Saving chelsie ly/adjudicate RxGRP:SG20 RxBIN:[id number] RxPCN:HT ID#:[id number]] diltiazem ER (XR/XT) 240 mg capsule,extended release,control led RxNorm: 139824 1 Capsule(s) PO QD 10/25/2013 04/22/2014 Inactive [AttnRPh: Savin g apply/adjudicate RxGRP:SG20 RxBIN:[id number] RxPCN:HT ID#:[id number]] fluoxetine 40 mg capsule RxNorm: 944631 1 Capsule(s) PO QD 10/26/19 14 04/22/2014 Inactive [AttnRPh: Saving apply/adjud icate RxGRP:SG20 RxBIN:[id number] RxPCN:HT ID#:[id number]] Zocor 40 mg tablet RxNorm: 358666 1 Tablet(s) PO QHS 1 TABLET(S ) PO QHS 09/13/2013 12/06/2013 Inactive metformin ER 1,000 mg tablet,extended release 24hr RxNorm: 8 80784 Tablet(s) PO TAKE 1 TABLET BY MOUTH TWICE DAILY (REPLACES 500MG DOSE) 07/26/201303/2015 Inactive diltiazem ER (XR/XT) 240 mg capsule,extended release,control led RxNorm: 384206 1 Capsule(s) PO QD 05/03/2013 10/25/2013 Inactive fluoxetine 40 mg capsule RxNorm: 346294 1 Capsule(s) PO QD 05/03/20 13 10/25/2013 Inactive Benicar HCT 40 mg-25 mg tablet RxNorm: 051289 1 Tablet(s) PO QD 01/201304/29/2014 Inactive Zocor 40 mg tablet RxNorm: 286004 1 Tablet(s) PO QHS 12/10/201209/13 Inactive fluoxetine 40 mg capsule RxNorm: 905644 1 Capsule(s) PO QD 11/10/19 13 05/03/2013 Inactive diltiazem ER (XR/XT) 240 mg capsule,extended release,control led RxNorm: 742434 1 Capsule(s) PO QD 11/09/2012 05/03/2013 Inactive Benicar HCT 40 mg-25 mg tablet RxNorm: 485577 1 Tablet(s) PO QD 05/03/2013 Inactive metformin ER 1,000 mg tablet,extended release 24hr RxNorm: 8 13811 Tablet(s) PO TAKE 1 TABLET BY MOUTH TWICE DAILY (REPLACES 500MG DOSE) 08/05/201206/2013 Inactive Zocor 40 mg tablet RxNorm: 529912 1 Tablet(s) PO QHS 06/15/201212/09 Inactive fluoxetine 40 mg capsule RxNorm: 844541 1 Capsule(s) PO QD 05/15/20 12 11/08/2012 Inactive Neurontin 600 mg Tab RxNorm: 813732 1 Tablet(s) PO QHS 12/03/2011 Inactive metformin ER 1,000 mg tablet,extended release 24hr RxNorm: 8 25027 1 Tablet(s) PO BID replaces 500mg dose 12/03/2011 07/26/2013 Inactive Zocor 40 mg tablet RxNorm: 709507 1 Tablet(s) PO QHS 12/03/201106/15 Inactive fluoxetine 20 mg capsule RxNorm: 911231 1 Capsule(s) PO QD 12/03/19 12 05/24/2012 Inactive diltiazem ER (XR/XT) 240 mg capsule,extended release,control led RxNorm: 182689 1 Capsule(s) PO QD 11/15/2011 11/09/2012 Inactive Benicar HCT 40 mg-25 mg tablet RxNorm: 465693 1 Tablet(s) PO QD 02/16/2012 Inactive metformin ER 500 mg 24 hr Tab RxNorm: 387607 1 Tablet(s) PO BID 12/02/2011 Inactive Zocor 40 mg Tab RxNorm: 514295 1 Tablet(s) PO QHS 05/30/2011 11/25/19 12 Inactive fluoxetine 20 mg Cap RxNorm: 743762 1 Capsule(s) PO QD 05/28/2011 Inactive Neurontin 600 mg Tab RxNorm: 149030 1 Tablet(s) PO QHS 05/28/2011 Inactive Neurontin 600 mg Tab RxNorm: 822587 1 Tablet(s) PO QHS 02/22/201106/2011 Inactive Neurontin 600 mg Tab RxNorm: 952569 1 Tablet(s) PO QHS 01/14/2011 Inactive Neurontin 300 mg Cap RxNorm: 145382 1 Capsule(s) PO QHS 01/14/2011 Inactive Neurontin 600 mg Tab RxNorm: 665174 1 Tablet(s) PO QHS 01/14/2011 Inactive Medrol (Vipul) 4 mg Tabs in a Dose Pack RxNorm: 947091 Tablet(s) PO 0 01/02/2011 08/28/2011 Inactive as directed fluoxetine 20 mg Cap RxNorm: 417333 1 Capsule(s) PO QD 12/10/201006/2011 Inactive Zocor 40 mg Tab RxNorm: 226440 1 Tablet(s) PO QHS 12/03/2010 05/29/19 12 Inactive Neurontin 300 mg Cap RxNorm: 174210 1 Capsule(s) PO QHS 12/03/2010 Inactive Septra DS 800 mg-160 mg Tab RxNorm: 999753 1 Tablet(s) PO BID 11/2912/08/2010 Inactive diltiazem ER (XR/XT) 240 mg Continuous Release Cap RxNorm: 8 21096 1 Capsule(s) PO QD 11/20/2010 11/15/2011 Inactive Neurontin 300 mg Cap RxNorm: 518168 1 Capsule(s) PO QHS 11/06/2010 Inactive Neurontin 300 mg Cap RxNorm: 849322 1 Capsule(s) PO QHS 11/06/2010 Inactive Celebrex 200 mg Cap RxNorm: 668186 1 Capsule(s) PO BID 10/24/2010 Inactive fluoxetine 20 mg Cap RxNorm: 872759 1 Capsule(s) PO QD 06/07/201003/2011 Inactive Zocor 40 mg Tab RxNorm: 699193 1 Tablet(s) PO QHS 06/05/2010 12/02/19 11 Inactive Benicar HCT 40 mg-25 mg Tab RxNorm: 190229 1 Tablet(s) PO QD 200908/21/2011 Inactive Diltiazem 240 mg Continuous Release Cap RxNorm: 105720 1 Capsul e(s) PO QD 11/09/2009 09/02/2018 Inactive Avelox 400 mg Tab RxNorm: 869568 1 Tablet(s) PO QD 08/22/2009 010 Inactive ProAir HFA 90 mcg/actuation aerosol inhaler RxNorm: 386659 2 Puff(s) INH Q4H as needed No Start Date Active tramadol 50 mg tablet RxNorm: 204720 1-2 Tablet(s) PO TID as ne eded for pain No Start Date Active Tylenol Arthritis 650 mg Tab RxNorm: 8204082 2 Tablet(s) PO QD No Sta rt Date Active Celebrex 200 mg Cap RxNorm: 848597 1 Capsule(s) PO BID No Start Date 08/08/2015 Inactive Medrol (Vipul) 4 mg Tabs in a Dose Pack RxNorm: 879457 Tablet(s) PO N o Start Date 01/01/2011 Inactive as directed Promethazine-DM 6.25 mg-15 mg/5 mL Syrup RxNorm: 546824 1-2 Teaspoon(s) PO Q4H prn cough No Start Date 08/28/2011 Inactive Claritin 10 mg tablet RxNorm: 388140 1 Tablet(s) PO QD No Start Date 08/08/2015 Inactive [id number] Oral RxNorm: Oral No Start Da te 03/28/2019 Inactive Breo Ellipta 200 mcg-25 mcg/dose powder for inhalation RxNor m: 6138163 1 Puff(s) INH QD No Start Date 04/09/2017 Inactive metformin 500 mg Tab RxNorm: 802077 1 Tablet(s) PO QD No Start Date 0 08/17/2011 Inactive Diltiazem 240 mg Continuous Release Cap RxNorm: 449522 1 Capsul e(s) PO BID No Start Date 11/08/2009 Inactive fluoxetine 20 mg Cap RxNorm: 562930 1 Capsule(s) PO QD No Start Date 06/07/2010 Inactive Multivitamin & Mineral Formula Oral RxNorm: Oral No Start Da te 03/28/2019 Inactive Medrol (Vipul) 4 mg tablets in a dose pack RxNorm: 550162 Tablet(s) PO as directed No Start Date 05/28/2012 Inactive Fish Oil 1,000 mg Cap RxNorm: 1 Capsule(s) PO QD No Start Date 07/2018 Inactive Nexium 40 mg Cap RxNorm: 716980 1 Capsule(s) PO QD No Start Date 07/24 Inactive fluticasone 50 mcg/actuation nasal spray,suspension RxNorm: 7490762 2 [place] NASAL QD to each nostril No Start Date 08/03/2017 Inactive Viagra 100 mg tablet RxNorm: 783408 1 Tablet(s) PO as needed No Sta rt Date 09/17/2015 Inactive prednisone 20 mg tablet RxNorm: 161136 1 Tablet(s) PO B ID for 4 days then 1 po daily for 4 days No Start Date 11/23/2018 Inactive Benicar HCT 40 mg-25 mg Tab RxNorm: [id number] 1 Tablet(s) PO QD No Sta rt [...] Date S ervice Location MICROALBUMIN URINE RANDOM 21698 MICRL MG/L 5.8 MG/L 03/2011 Unknown MICROALBUMIN URINE RANDOM 10322 XM.ALB/CRE 5.2 MG/GCR Unknown MICROALBUMIN URINE RANDOM 80100 CREAT MG/D 111 MG/DL 03/2011 Unknown MICROALBUMIN URINE RANDOM 27037 CRE/100 1.11 G/L 12/24 Unknown Procedures Procedure Codes Date FLU VACC PRSV FREE INC ANTIG 65 AND OLDER CPT-4: 58319 03/04/2019 ADMIN PNEUMOCOCCAL VACCINE CPT-4: G0009 03/04/2019 ADMIN INFLUENZA VIRUS VAC CPT-4: G0008 03/04/2019 FLU VACC PRSV FREE INC ANTIG 65 AND OLDER CPT-4: 36046 03/04/2019 PNEUMOCOCCAL VACC 23 RAYMON IM CPT-4: 60730 03/04/2019 THER/PROPH/DIAG INJ SC/IM CPT-4: 17699 08/11/2018 TRIAMCINOLONE ACET INJ NOS CPT-4: J3301 08/11/2018 DEXAMETHASONE SODIUM PHOS CPT-4: J1100 08/11/2018 THER/PROPH/DIAG INJ SC/IM CPT-4: 52342 07/16/2018 METHYLPREDNISOLONE INJECTION CPT-4: J2930 07/16/2018 INFLUENZA ASSAY W/OPTIC CPT-4: 65269 07/16/2018 THER/PROPH/DIAG INJ SC/IM CPT-4: 29733 07/13/2018 TRIAMCINOLONE ACET INJ NOS CPT-4: J3301 07/13/2018 THER/PROPH/DIAG INJ SC/IM CPT-4: 25884 05/04/2018 METHYLPREDNISOLONE INJECTION CPT-4: J2930 05/04/2018 FLU VACC PRSV FREE INC ANTIG 65 AND OLDER CPT-4: 40665 02/10/2018 PNEUMOCOCCAL VACC 13 [facility]MON IM CPT-4: 74201 02/10/2018 ADMIN INFLUENZA VIRUS VAC CPT-4: G0008 02/10/2018 ADMIN PNEUMOCOCCAL VACCINE CPT-4: G0009 02/10/2018 THER/PROPH/DIAG INJ SC/IM CPT-4: 51335 09/09/2017 TRIAMCINOLONE ACET INJ NOS CPT-4: J3301 09/09/2017 ALBUTEROL NON-COMP UNIT CPT-4: J7613 04/10/2017 AIRWAY INHALATION TREATMENT CPT-4: 97023 04/10/2017 PRESCRIP TRANSMIT VIA ERX SY CPT-4: G8553 04/10/2017 FLU VACC PRSV FREE INC ANTIG 65 AND OLDER CPT-4: 31187 03/28/2017 ADMIN INFLUENZA VIRUS VAC CPT-4: G0008 03/28/2017 PRESCRIP TRANSMIT VIA ERX SY CPT-4: G8553 08/27/2016 PRESCRIP TRANSMIT VIA ERX SY CPT-4: G8553 06/14/2016 ALBUTEROL NON-COMP UNIT CPT-4: J7613 06/13/2016 AIRWAY INHALATION TREATMENT CPT-4: 57837 06/13/2016 PRESCRIP TRANSMIT VIA ERX SY CPT-4: [...] CPT-4: G8553 11/07/2014 THER/PROPH/DIAG INJ SC/IM CPT-4: 59791 09/21/2014 METHYLPREDNISOLONE INJECTION CPT-4: J2930 09/21/2014 PRESCRIP TRANSMIT VIA ERX SY CPT-4: G8553 09/21/2014 PRESCRIP TRANSMIT VIA ERX SY CPT-4: G8553 06/10/2014 URINALYSIS NONAUTO W/O SCOPE CPT-4: 86164 06/01/2012 PRESCRIP TRANSMIT VIA ERX SY CPT-4: G8553 05/25/2012 PRESCRIP TRANSMIT VIA ERX SY CPT-4: G8553 12/03/2011 CUR TOBACCO NON-USER CPT-4: G8457 05/30/2011 PRESCRIP TRANSMIT VIA ERX SY CPT-4: G8553 05/30/2011 URINALYSIS NONAUTO W/O SCOPE CPT-4: 31925 01/01/2011 URINE CULTURE/ COLONY COUNT CPT-4: 82846 01/01/2011 CUR TOBACCO NON-USER CPT-4: G8457 01/01/2011 [...] 1: 114/68 Code: 8480-6 BMI: 43.5 Code: 49357-6 Heart Rate 1: 52 bpm Height: 6'1" [...] 1: 136/72 Code: 8480-6 BMI: 42.7 Code: 72022-7 Heart Rate 1: 60 bpm Height: 6'1" Respiratory Rate: 22 bpm SpO2: 95% Tempera ture: 37.1 (C) / 98.7 (F) Weight: 324 lbs 02/10/2018 Blood Pressure 1: 146/78 Code: 8480-6 BMI: 42.4 Code: 98549-5 Heart Rate 1: 64 bpm Height: 6'1" Respiratory Rate: 22 bpm SpO2: 95% Tempera ture: 36.5 (C) / 97.7 (F) Weight: 321 lbs 11/05/2017 Blood Pressure 1: 128/84 Code: 8480-6 BMI: 42.9 Code: 69672-5 Heart Rate 1: 52 bpm Height: 6'1" Respiratory Rate: 22 bpm SpO2: 95% Tempera ture: 36.3 (C) / 97.3 (F) Weight: 325 lbs 09/09/2017 Blood Pressure 1: 162/90 Code: 8480-6 BMI: 42.5 Code: 19145-8 Heart Rate 1: 60 bpm Height: 6'1" Respiratory Rate: 24 bpm SpO2: 95% Tempera ture: 36.4 (C) / 97.6 (F) Weight: 322 lbs 08/07/2017 Blood Pressure 1: 152/90 Code: 8480-6 BMI: 42.2 Code: 84892-2 Heart Rate 1: 60 bpm Height: 6'1" Respiratory Rate: 26 bpm SpO2: 94% Tempera ture: 36.6 (C) / 97.8 (F) Weight: 320 lbs 08/04/2017 Blood Pressure 1: 150/86 Code: 8480-6 BMI: 42.7 Code: 09585-9 Heart Rate 1: 64 bpm Height: 6'1" Respiratory Rate: 20 bpm SpO2: 94% Tempera ture: 36.3 (C) / 97.3 (F) Weight: 324 lbs 06/04/2017 Blood Pressure 1: 164/90 Code: 8480-6 Heart Rate 1: 60 bpm Respiratory Rate: 24 bpm SpO2: 94% Temperature: 36.8 (C) / 98.3 (F) 06/02/2017 Blood Pressure 1: 162/80 Code: 8480-6 BMI: 42.9 Code: 72826-9 Heart Rate 1: 66 bpm Height: 6'1" Respiratory Rate: 22 bpm SpO2: 98% Tempera ture: 36.6 (C) / 97.8 (F) Weight: 325 lbs 05/05/2017 Blood Pressure 1: 164/94 Code: 8480-6 BMI: 41.4 Code: 25955-1 Heart Rate 1: 64 bpm Height: 6'1" Respiratory Rate: 22 bpm SpO2: 95% Tempera ture: 36.4 (C) / 97.5 (F) Weight: 314 lbs 04/10/2017 Blood Pressure 1: 136/78 Code: 8480-6 BMI: 42.0 Code: 54928-6 Heart Rate 1: 76 bpm Height: 6'1" Respiratory Rate: 24 bpm SpO2: 92% Tempera ture: 35.9 (C) / 96.7 (F) Weight: 318 lbs 02/03/2017 Blood Pressure 1: 134/82 Code: 8480-6 BMI: 41.7 Code: 32543-8 Heart Rate 1: 72 bpm Height: 6'1" Respiratory Rate: 24 bpm SpO2: 95% Tempera ture: 36.1 (C) / 97.0 (F) Weight: 316 lbs 10/30/2016 Blood Pressure 1: 126/74 Code: 8480-6 BMI: 41.3 Code: 42986-6 Heart Rate 1: 68 bpm Height: 6'1" Respiratory Rate: 20 bpm Temperature: 37 .1 (C) / 98.8 (F) Weight: 313 lbs 08/30/2016 Blood Pressure 1: 146/80 Code: 8480-6 BMI: 41.7 Code: 31468-7 Heart Rate 1: 64 bpm Height: 6'1" Respiratory Rate: 24 bpm SpO2: 94% Tempera ture: 36.6 (C) / 97.8 (F) Weight: 316 lbs 08/27/2016 Blood Pressure 1: 124/78 Code: 8480-6 Heart Rate 1: 66 bpm Height: 6'2" Respiratory Rate: 18 bpm SpO2: 94% Temperature: 36.6 (C) / 97.8 (F) Weight: 07/02/2016 Blood Pressure 1: 126/78 Code: 8480-6 BMI: 41.4 Code: 63867-4 Heart Rate 1: 68 bpm Height: 6'1" Respiratory Rate: 24 bpm SpO2: 94% Tempera ture: 36.6 (C) / 97.8 (F) Weight: 314 lbs 06/14/2016 Blood Pressure 1: 146/82 Code: 8480-6 Heart Rate 1: 80 bpm Respiratory Rate: 20 bpm SpO2: 95% Temperature: 37.3 (C) / 99.2 (F) 06/13/2016 Blood Pressure 1: 146/84 Code: 8480-6 BMI: 40.5 Code: 08652-7 Heart Rate 1: 66 bpm Height: 6'1" Respiratory Rate: 28 bpm SpO2: 93% Tempera ture: 35.8 (C) / 96.4 (F) Weight: 307 lbs 05/14/2016 Blood Pressure 1: 146/90 Code: 8480-6 BMI: 41.2 Code: 48427-4 Heart Rate 1: 68 bpm Height: 6'1" Respiratory Rate: 26 bpm Temperature: 36 .8 (C) / 98.2 (F) Weight: 312 lbs 04/29/2016 Blood Pressure 1: 152/90 Code: 8480-6 BMI: 41.0 Code: 39680-8 Heart Rate 1: 68 bpm Height: 6'1" Respiratory Rate: 26 bpm SpO2: 94% Tempera ture: 36.1 (C) / 96.9 (F) Weight: 311 lbs 04/22/2016 Blood Pressure 1: 152/94 Code: 8480-6 BMI: 40.9 Code: 04562-3 Heart Rate 1: 68 bpm Height: 6'1" Respiratory Rate: 24 bpm SpO2: 94% Tempera ture: 36.2 (C) / 97.2 (F) Weight: 310 lbs 04/01/2016 Blood Pressure 1: 156/78 Code: 8480-6 BMI: 40.6 Code: 87030-4 Heart Rate 1: 84 bpm Height: 6'1" Respiratory Rate: 22 bpm SpO2: 95% Tempera ture: 37.1 (C) / 98.7 (F) Weight: 308 lbs 11/30/2015 Blood Pressure 1: 142/80 Code: 8480-6 BMI: 40.5 Code: 90604-2 Heart Rate 1: 88 bpm Height: 6'1" Respiratory Rate: 22 bpm Temperature: 36 .2 (C) / 97.2 (F) Weight: 307 lbs 08/29/2015 Blood Pressure 1: 132/70 Code: 8480-6 BMI: 40.0 Code: 00120-7 Heart Rate 1: 76 bpm Height: 6'1" Respiratory Rate: 24 bpm SpO2: 96% Tempera ture: 36.7 (C) / 98.0 (F) Weight: 303 lbs 08/14/2015 Blood Pressure 1: 126/80 Code: 8480-6 BMI: 39.4 Code: 25443-3 Heart Rate 1: 92 bpm Height: 6'1" Respiratory Rate: 24 bpm SpO2: 94% Tempera ture: 37.8 (C) / 100.0 (F) Weight: 299 lbs 08/09/2015 Blood Pressure 1: 146/82 Code: 8480-6 Heart Rate 1: 82 bpm Respiratory Rate: 22 bpm SpO2: 93% Temperature: 35.9 (C) / 96.6 (F) We ight: 310 lbs 05/22/2015 Blood Pressure 1: 156/76 Code: 8480-6 BMI: 41.0 Code: 36816-4 Heart Rate 1: 100 bpm Height: 6'1" Respiratory Rate: 22 bpm Temperature: 37 .2 (C) / 98.9 (F) Weight: 311 lbs 02/13/2015 Blood Pressure 1: 166/90 Code: 8480-6 BMI: 41.2 Code: 32935-6 Heart Rate 1: 72 bpm Height: 6'1" Respiratory Rate: 24 bpm SpO2: 93% Tempera ture: 36.9 (C) / 98.5 (F) Weight: 312 lbs 11/07/2014 Blood Pressure 1: 134/70 Code: 8480-6 BMI: 40.5 Code: 65213-0 Heart Rate 1: 76 bpm Height: 6'1" Respiratory Rate: 24 bpm Temperature: 36 .9 (C) / 98.4 (F) Weight: 307 lbs 10/04/2014 Blood Pressure 1: 144/86 Code: 8480-6 BMI: 40.1 Code: 46691-8 Heart Rate 1: 76 bpm Height: 6'1" Respiratory Rate: 28 bpm Temperature: 36 .6 (C) / 97.9 (F) Weight: 304 lbs 09/22/2014 Blood Pressure 1: 142/80 Code: 8480-6 BMI: 40.0 Code: 76852-8 Heart Rate 1: 80 bpm Height: 6'1" Respiratory Rate: 22 bpm SpO2: 96% Tempera ture: 36.6 (C) / 97.8 (F) Weight: 303 lbs 09/21/2014 Blood Pressure 1: 160/66 Code: 8480-6 BMI: 40.0 Code: 14588-8 Heart Rate 1: 90 bpm Height: 6'1" Respiratory Rate: 26 bpm SpO2: 94% Tempera ture: 35.7 (C) / 96.2 (F) Weight: 303 lbs 06/28/2014 Blood Pressure 1: 132/80 Code: 8480-6 BMI: 41.0 Code: 00372-4 Heart Rate 1: 64 bpm Height: 6' Respiratory Rate: 20 bpm Temperature: 36 .7 (C) / 98.0 (F) Weight: 302 lbs 06/10/2014 Blood Pressure 1: 152/70 Code: 8480-6 BMI: 41.1 Code: 94106-5 Heart Rate 1: 76 bpm Height: 6' Respiratory Rate: 20 bpm Temperature: 36 .6 (C) / 97.8 (F) Weight: 303 lbs 03/29/2014 Blood Pressure 1: 132/78 Code: 8480-6 BMI: 40.6 Code: 40721-2 Heart Rate 1: 84 bpm Height: 6' Respiratory Rate: 22 bpm Temperature: 37 .1 (C) / 98.8 (F) Weight: 299 lbs 11/30/2013 Blood Pressure 1: 136/84 Code: 8480-6 BMI: 39.2 Code: 57322-7 Heart Rate 1: 76 bpm Height: 6' Respiratory Rate: 20 bpm Temperature: 36 .8 (C) / 98.2 (F) Weight: 289 lbs 08/03/2013 Blood Pressure 1: 144/80 Code: 8480-6 Heart Rate 1: 86 bpm Respiratory Rate: 20 bpm Temperature: 36.6 (C) / 97.8 (F) Weight: 296 lbs 04/06/2013 Blood Pressure 1: 142/90 Code: 8480-6 BMI: 40.3 Code: 19764-5 Heart Rate 1: 88 bpm Height: 6' Respiratory Rate: 20 bpm Temperature: 36 .6 (C) / 97.8 (F) Weight: 297 lbs 12/01/2012 Blood Pressure 1: 124/78 Code: 8480-6 BMI: 38.7 Code: 06632-1 Heart Rate 1: 76 bpm Height: 6' Respiratory Rate: 20 bpm Temperature: 37 .2 (C) / 98.9 (F) Weight: 285 lbs 08/04/2012 Blood Pressure 1: 128/80 Code: 8480-6 BMI: 38.2 Code: 64192-9 Heart Rate 1: 76 bpm Height: 6' Respiratory Rate: 20 bpm Temperature: 37 .0 (C) / 98.6 (F) Weight: 282 lbs 05/29/2012 Blood Pressure 1: 138/78 Code: 8480-6 BMI: 36.6 Code: 75470-1 Heart Rate 1: 66 bpm Height: 6' Temperature: 36.7 (C) / 98.1 (F) Weight: 270 lbs 05/25/2012 Blood Pressure 1: 128/72 Code: 8480-6 BMI: 39.9 Code: 96398-3 Heart Rate 1: 74 bpm Height: 6' Temperature: 36.1 (C) / 97.0 (F) Weight: 294 lbs 04/07/2012 Blood Pressure 1: 124/76 Code: 8480-6 BMI: 39.9 Code: 42643-1 Heart Rate 1: 72 bpm Height: 6' Respiratory Rate: 20 bpm Temperature: 36 .9 (C) / 98.5 (F) Weight: 294 lbs 12/16/2011 Blood Pressure 1: 128/80 Code: 8480-6 BMI: 40.8 Code: 40064-5 Heart Rate 1: 74 bpm Height: 6' Temperature: 36.6 (C) / 97.8 (F) Weight: 301 lbs 12/03/2011 Blood Pressure 1: 132/76 Code: 8480-6 BMI: 40.8 Code: 26636-7 Heart Rate 1: 68 bpm Height: 6' Respiratory Rate: 20 bpm Temperature: 36 .8 (C) / 98.2 (F) Weight: 301 lbs 08/29/2011 Blood Pressure 1: 140/68 Code: 8480-6 BMI: 40.8 Code: 57750-9 Heart Rate 1: 80 bpm Height: 6' Respiratory Rate: 20 bpm Temperature: 36 .4 (C) / 97.6 (F) Weight: 301 lbs 05/30/2011 Blood Pressure 1: 134/82 Code: 8480-6 BMI: 41.5 Code: 88203-9 Heart Rate 1: 76 bpm Height: 6' [...] 1: 126/72 Code: 8480-6 BMI: 41.2 Code: 48833-8 Heart Rate 1: 76 bpm Height: 6' [...] 1: 152/90 Code: 8480-6 BMI: 37.7 Code: 52145-5 Heart Rate 1: 92 bpm Height: 6'1" [...] Codes Date () OFFICE/OUTPATIENT VISIT EST Diagnosis: Advanced chronic obstructive pulmonary disease[ICD10: J44.9] 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] Neela QURESHI [facility] [employer] CPT-4: 83716 05/10/2019 ([id number]) OFFICE/OUTPATIENT VISIT EST Diagnosis: Chronic obstructive pulmonary disease with (acute) exacerbation[ICD10: J44.1] Diagnosis: Hypokalemia[ICD10: E87.6] 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] Neela QURESHI MCE-5 Development CPT-4: 48714 03/29/2019 ([id number]) NURSE/OUTPATIENT VISIT EST Diagnosis: PNEUMOCOCCAL VACCINE[ICD10: Z23] Neela MURILLO [employer] CPT-4: 85915 03/04/2019 ([id number]) OFFICE/OUTPATIENT VISIT EST Diagnosis: Chronic obstructive pulmonary disease with (acute) exacerbation[ICD10: J44.1] Diagnosis: Other nonspecific abnormal finding of lung field[ICD10: R91.8] Neela HYMAN [employer] [facility] CPT-4: 25617 01/05/2019 ([id number]) OFFICE/OUTPATIENT VISIT EST Diagnosis: Solitary pulmonary nodule[ICD10: R91.1] 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] Diagnosis: Tinea corporis[ICD10: B35.4] Neela HYMAN [employer] [facility] CPT-4: 96024 12/09/2018 ([id number]) OFFICE/OUTPATIENT VISIT EST Diagnosis: COUGH[ICD10: R05] Diagnosis: Chronic obstructive pulmonary disease, unspecified[ICD10: J44.9] Diagnosis: Other disorders of lung[ICD10: J98.4] Diagnosis: Other nonspecific abnormal finding of lung field[ICD10: R91.8] Neela HYMAN [employer] [facility] CPT-4: 46922 11/24/2018 ([id number]) OFFICE/OUTPATIENT VISIT EST Diagnosis: Pneumonia, unspecified organism[ICD10: J18.9] Amita HYMAN [employer] [facility] CPT-4: 31060 09/16/2018 ([id number]) OFFICE/OUTPATIENT VISIT EST Diagnosis: Pneumonia, unspecified organism[ICD10: J18.9] Neela HYMAN [employer] [facility] CPT-4: 20980 09/03/2018 ([id number]) OFFICE/OUTPATIENT VISIT EST Diagnosis: Personal history of pneumonia (recurrent)[ICD10: Z87.01] Diagnosis: Cough[ICD10: R05] Diagnosis: Essential (primary) hypertension[ICD10: I10] Diagnosis: Type 2 diabetes mellitus with hyperglycemia[ICD10: E11.65] Amita HYMAN [employer] [facility] CPT-4: 98595 08/27/2018 OFFICE/OUTPATIENT VISIT EST Diagnosis: Pneumonia, unspecified organism[ICD10: J18.9] Diagnosis: Chronic obstructive pulmonary disease with (acute) exacerbation[ICD10: J44.1] Diagnosis: Other specified symptoms and signs involving the circulatory and respiratory systems[ICD10: R09.89] Diagnosis: Essential (primary) hypertension[ICD10: I10] Amita HYMAN [employer] [facility] CPT-4: 99253 08/13/2018 OFFICE/OUTPATIENT VISIT EST Diagnosis: Pneumonia, unspecified organism[ICD10: J18.9] Diagnosis: Other specified symptoms and signs involving the circulatory and respiratory systems[ICD10: R09.89] Amita HYMAN [employer] [facility] CPT-4: 64752 08/11/2018 ([id number]) OFFICE/OUTPATIENT VISIT EST Diagnosis: Dyspnea, unspecified[ICD10: R06.00] Diagnosis: Chronic obstructive pulmonary disease with (acute) exacerbation[ICD10: J44.1] Diagnosis: Pneumonia, unspecified organism[ICD10: J18.9] Amita HYMAN [employer] [facility] CPT-4: 13835 07/16/2018 ([id number]) OFFICE/OUTPATIENT VISIT EST Diagnosis: Acute bronchitis due to other specified organisms[ICD10: J20.8] Diagnosis: Cough[ICD10: R05] Amita VALENTINE[employer]emed[employer] Cell TechnologiesHAO [employer] [facility] T-4: 31632 07/13/2018 ([id number]) OFFICE/OUTPATIENT VISIT EST Diagnosis: Essential (primary) hypertension[ICD10: I10] Diagnosis: Chronic obstructive pulmonary disease, unspecified[ICD10: J44.9] Diagnosis: Type 2 diabetes mellitus with hyperglycemia[ICD10: E11.65] Diagnosis: Mixed hyperlipidemia[ICD10: E78.2] Neela STERLING [employer] [facility] CPT-4: 43137 06/03/2018 ([id number]) OFFICE/OUTPATIENT VISIT EST Diagnosis: Chronic obstructive pulmonary disease, unspecified[ICD10: J44.9] Gely Harp NEELA Octavio [employer] [facility] CPT-4: 12025 05/04/2018 ([id number]) OFFICE/OUTPATIENT VISIT EST Diagnosis: Essential (primary) hypertension[ICD10: I10] Diagnosis: Localized edema[ICD10: R60.0] Neela MURILLO [employer] [facility] CPT-4: 62710 03/03/2018 ([id number]) OFFICE/OUTPATIENT VISIT EST Diagnosis: Localized edema[ICD10: R60.0] Neela HYMAN [employer] [facility] CPT-4: 26675 02/17/2018 ([id number]) OFFICE/OUTPATIENT VISIT EST Diagnosis: FLU VACCINE[ICD10: Z23] Diagnosis: PNEUMOCOCCAL VACCINE[ICD10: Z23] Diagnosis: Type 2 diabetes mellitus without complications[ICD10: E11.9] Diagnosis: Mixed hyperlipidemia[ICD10: E78.2] Diagnosis: Essential (primary) hypertension[ICD10: I10] Diagnosis: Localized edema[ICD10: R60.0] Diagnosis: Chronic obstructive pulmonary disease, unspecified[ICD10: J44.9] Neela HYMAN [employer] [facility] CPT-4: 27179 02/10/2018 ([id number]) OFFICE/OUTPATIENT VISIT EST Diagnosis: Type 2 diabetes mellitus with hyperglycemia[ICD10: E11.65] Diagnosis: Mixed hyperlipidemia[ICD10: E78.2] Diagnosis: Essential (primary) hypertension[ICD10: I10] Diagnosis: Chronic obstructive pulmonary disease, unspecified[ICD10: J44.9] Diagnosis: Cutaneous abscess of back [any part, except buttock][ICD10: L02.212] Neela MIRZALINE Octavio HYMAN [employer] [facility] CPT-4: 60980 11/05/2017 ([id number]) OFFICE/OUTPATIENT VISIT EST Diagnosis: Allergic urticaria[ICD10: L50.0] Gely HYMAN [employer] [facility] CPT-4: 25774 09/09/2017 ([id number]) OFFICE/OUTPATIENT VISIT EST Diagnosis: Generalized enlarged lymph nodes[ICD10: R59.1] Diagnosis: Acute gastritis without bleeding[ICD10: K29.00] Gely HYMAN [employer] [facility] CPT-4: 78368 08/07/2017 ([id number]) OFFICE/OUTPATIENT VISIT EST Diagnosis: Type 2 diabetes mellitus without complications[ICD10: E11.9] Diagnosis: Mixed hyperlipidemia[ICD10: E78.2] Diagnosis: Essential (primary) hypertension[ICD10: I10] Neeladano Hyman NEELA Octavio HYMAN [employer] [facility] CPT-4: 99958 08/04/2017 ([id number]) OFFICE/OUTPATIENT VISIT EST Diagnosis: Zoster without complications[ICD10: B02.9] Diagnosis: Acute sialoadenitis[ICD10: K11.21] Gely HYMAN [employer] [facility] CPT-4: 47954 06/04/2017 OFFICE/OUTPATIENT VISIT EST Diagnosis: Zoster without complications[ICD10: B02.9] Diagnosis: Acute sialoadenitis[ICD10: K11.21] Gely HYMAN [employer] [facility] CPT-4: 07230 06/02/2017 ([id number]) OFFICE/OUTPATIENT VISIT EST Diagnosis: Type 2 diabetes mellitus without complications[ICD10: E11.9] Diagnosis: Mixed hyperlipidemia[ICD10: E78.2] Diagnosis: Essential (primary) hypertension[ICD10: I10] Diagnosis: Chronic obstructive pulmonary disease, unspecified[ICD10: J44.9] Neela ZHANG [employer] [facility] CPT-4: 31281 05/05/2017 OFFICE/OUTPATIENT VISIT EST Diagnosis: Chronic obstructive pulmonary disease with acute lower respiratory infection[ICD10: J44.0] Diagnosis: Impacted cerumen, bilateral[ICD10: H61.23] Gely ZHANG [employer] [facility] CPT-4: 40481 04/10/2017 ([id number]) OFFICE/OUTPATIENT VISIT EST Diagnosis: FLU VACCINE[ICD10: Z23] Neela ZHANG [employer] [facility] CPT-4: 60901 03/28/2017 ([id number]) OFFICE/OUTPATIENT VISIT EST Diagnosis: Type 2 diabetes mellitus without complications[ICD10: E11.9] Diagnosis: Mixed hyperlipidemia[ICD10: E78.2] Diagnosis: Essential (primary) hypertension[ICD10: I10] Diagnosis: Chronic obstructive pulmonary disease, unspecified[ICD10: J44.9] Neela ZHANG [employer] [facility] CPT-4: 67626 02/03/2017 ([id number]) OFFICE/OUTPATIENT VISIT EST Diagnosis: Type 2 diabetes mellitus with hyperglycemia[ICD10: E11.65] Diagnosis: Mixed hyperlipidemia[ICD10: E78.2] Diagnosis: Essential (primary) hypertension[ICD10: I10] Diagnosis: Chronic obstructive pulmonary disease, unspecified[ICD10: J44.9] Neela HYMAN DO [facility] CPT-4: 24580 10/30/2016 ([id number]) NO CHARGE Diagnosis: Acute bronchitis, unspecified[ICD10: J20.9] Sammi HYMAN DO [facility] CPT-4: 02378 08/30/2016 ([id number]) OFFICE/OUTPATIENT VISIT EST Diagnosis: Acute bronchitis, unspecified[ICD10: J20.9] Diagnosis: Other seasonal allergic rhinitis[ICD10: J30.2] Sammi HYMAN DO [facility] CPT-4: 16003 08/27/2016 ([id number]) OFFICE/OUTPATIENT VISIT EST Diagnosis: Type 2 diabetes mellitus without complications[ICD10: E11.9] Diagnosis: Mixed hyperlipidemia[ICD10: E78.2] Diagnosis: Essential (primary) hypertension[ICD10: I10] Neela HYMAN DO [facility] CPT-4: 98451 07/02/2016 ([id number]) OFFICE/OUTPATIENT VISIT EST Diagnosis: Acute bronchitis, unspecified[ICD10: J20.9] Sammi HYMAN [employer] [facility] CPT-4: 12926 06/14/2016 ([id number]) OFFICE/OUTPATIENT VISIT EST Diagnosis: Acute bronchitis, unspecified[ICD10: J20.9] Sammi HYMAN DO [facility] CPT-4: 70423 06/13/2016 ([id number]) OFFICE/OUTPATIENT VISIT EST Diagnosis: Essential (primary) hypertension[ICD10: I10] Neela HYMAN DO [facility] CPT-4: 87111 05/14/2016 ([id number]) OFFICE/OUTPATIENT VISIT EST Diagnosis: Essential (primary) hypertension[ICD10: I10] Neela HYMAN DO [facility] CPT-4: 10735 04/29/2016 ([id number]) OFFICE/OUTPATIENT VISIT EST Diagnosis: Unspecified abdominal pain[ICD10: R10.9] Diagnosis: Left lower quadrant pain[ICD10: R10.32] Diagnosis: Left upper quadrant pain[ICD10: R10.12] Diagnosis: Essential (primary) hypertension[ICD10: I10] Neela HYMAN DO [facility] CPT-4: 08125 04/22/2016 ([id number]) OFFICE/OUTPATIENT VISIT EST Diagnosis: Type 2 diabetes mellitus without complications[ICD10: E11.9] Diagnosis: Mixed hyperlipidemia[ICD10: E78.2] Diagnosis: Essential (primary) hypertension[ICD10: I10] Neela HYMAN DO [facility] CPT-4: 21276 04/01/2016 ([id number]) OFFICE/OUTPATIENT VISIT EST Diagnosis: Type 2 diabetes mellitus with hyperglycemia[ICD10: E11.65] Diagnosis: Mixed hyperlipidemia[ICD10: E78.2] Diagnosis: Essential (primary) hypertension[ICD10: I10] Neela HYMAN DO [facility] CPT-4: 07523 11/30/2015 ([id number]) OFFICE/OUTPATIENT VISIT EST Diagnosis: Type 2 diabetes mellitus with diabetic neuropathy, unspecified[ICD10: E11.40] Diagnosis: Essential (primary) hypertension[ICD10: I10] Diagnosis: Mixed hyperlipidemia[ICD10: E78.2] Neela HYMAN [employer] [facility] CPT-4: 74894 08/29/2015 ([id number]) OFFICE/OUTPATIENT VISIT EST Diagnosis: COUGH[ICD10: R05] Diagnosis: Wheezing[ICD10: R06.2] Diagnosis: Type 2 diabetes mellitus with diabetic neuropathy, unspecified[ICD10: E11.40] Neela HYMAN DO [facility] CPT-4: 45016 08/14/2015 ([id number]) OFFICE/OUTPATIENT VISIT EST Diagnosis: Other seasonal allergic rhinitis[ICD10: J30.2] Diagnosis: Dyspnea, unspecified[ICD10: R06.00] Diagnosis: Wheezing[ICD10: R06.2] Sammi Reinaldo HYMAN DO [facility] CPT-4: 29802 08/09/2015 ([id number]) OFFICE/OUTPATIENT VISIT EST Diagnosis: Essential (primary) hypertension[ICD10: I10] Diagnosis: Type 2 diabetes mellitus with hyperglycemia[ICD10: E11.65] Diagnosis: Mixed hyperlipidemia[ICD10: E78.2] Neela STERLING SMendez HYMAN [employer] [facility] CPT-4: 82464 05/22/2015 ([id number]) OFFICE/OUTPATIENT VISIT EST Diagnosis: DM W/O COMPLICATION TYPE II[ICD9: 250.00] Diagnosis: - I - HYPERTENSION[ICD9: 401.9] Diagnosis: - I - HYPERLIPIDEMIA NEC/NOS[ICD9: 272.4] Diagnosis: Left hand paresthesia[ICD9: 782.0] Neela STERLING SMendez HYMAN [employer] [facility] CPT-4: 50963 02/13/2015 ([id number]) OFFICE/OUTPATIENT VISIT EST Diagnosis: HYPERLIPIDEMIA NEC/NOS[ICD9: 272.4] Diagnosis: DM W/O COMPLICATION TYPE II[ICD9: 250.00] Neela HYMAN [employer] [facility] CPT-4: 41496 11/07/2014 ([id number]) OFFICE/OUTPATIENT VISIT EST Diagnosis: ALLERGIC RHINITIS[ICD9: 477.9] Diagnosis: WHEEZING[ICD9: 786.07] Neela Duarte [employer] [facility] CPT-4: 78419 10/04/2014 ([id number]) OFFICE/OUTPATIENT VISIT EST Diagnosis: BRONCHITIS, ACUTE[ICD9: 466.0] Diagnosis: WHEEZING[ICD9: 786.07] Loren BADILLO R [employer] [facility] CPT-4: 76147 09/22/2014 ([id number]) OFFICE/OUTPATIENT VISIT EST Diagnosis: DYSPNEA[ICD9: 786.09] Diagnosis: WHEEZING[ICD9: 786.07] Diagnosis: Arrhythmia[ICD9: 427.9] Loren VALENTINEND ER [employer] [facility] CPT-4: 18404 09/21/2014 ([id number]) OFFICE/OUTPATIENT VISIT EST Diagnosis: DM W/O COMPLICATION TYPE II, 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] Diagnosis: - I - HYPERLIPIDEMIA NEC/NOS[ICD9: 272.4] Diagnosis: - I - HYPERTENSION[ICD9: 401.9] Neela HYMAN [employer] [facility] CPT-4: 51926 06/28/2014 OFFICE/OUTPATIENT VISIT EST Diagnosis: SINUSITIS, ACUTE[ICD9: 461.9] Diagnosis: OTITIS MEDIA NOS[ICD9: 382.9] [facility]Jong [facility] 20766 06/10/2014 ([id number]) OFFICE/OUTPATIENT VISIT EST Diagnosis: DM W/O COMPLICATION TYPE II[ICD9: 250.00] Diagnosis: - I - HYPERLIPIDEMIA NEC/NOS[ICD9: 272.4] Diagnosis: - I - HYPERTENSION[ICD9: 401.9] [facility] 28670 03/29/2014 ([id number]) OFFICE/OUTPATIENT VISIT EST Diagnosis: DM W/O COMPLICATION TYPE II[ICD9: 250.00] Diagnosis: - I - HYPERTENSION[ICD9: 401.9] Diagnosis: - I - HYPERLIPIDEMIA NEC/NOS[ICD9: 272.4] Diagnosis: Hand lesion[ICD9: 709.9] Neela Sergemelany MURILLO JulissaMendez [facility] CPT-4: 23653 11/30/2013 ([id number]) OFFICE/OUTPATIENT VISIT EST Diagnosis: DM W/O COMPLICATION TYPE II[ICD9: 250.00] Diagnosis: HYPERLIPIDEMIA NEC/NOS[ICD9: 272.4] Diagnosis: HYPERTENSION[ICD9: 401.9] Neela Sergeushahao MIRZANEELA JulissaMendez [facility] CPT-4: 00642 08/03/2013 ([id number]) OFFICE/OUTPATIENT VISIT EST Diagnosis: DM W/O COMPLICATION TYPE II, 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] Diagnosis: HYPERTENSION[ICD9: 401.9] Diagnosis: HYPERLIPIDEMIA NEC/NOS[ICD9: 272.4] Neela GREGORIO [facility]endez [facility] CPT-4: 11909 04/06/2013 ([id number]) OFFICE/OUTPATIENT VISIT EST Diagnosis: DM W/O COMPLICATION TYPE II[ICD9: 250.00] Diagnosis: HYPERLIPIDEMIA NEC/NOS[ICD9: 272.4] Diagnosis: HYPERTENSION[ICD9: 401.9] Neela Sergemelany MURILLO JulissaMendez [facility] CPT-4: 13843 12/01/2012 ([id number]) OFFICE/OUTPATIENT VISIT EST Diagnosis: DM W/O COMPLICATION TYPE II[ICD9: 250.00] Diagnosis: HYPERTENSION[ICD9: 401.9] Diagnosis: HYPERLIPIDEMIA NEC/NOS[ICD9: 272.4] Neela GREGORIO JulissaMendez [facility] CPT-4: 79153 08/04/2012 ([id number]) OFFICE/OUTPATIENT VISIT EST Diagnosis: URINARY FREQUENCY[ICD9: 788.41] Neela Cunningham [facility] CPT-4: 26103 06/01/2012 OFFICE/OUTPATIENT VISIT EST Diagnosis: Agitation[ICD9: 307.9] Diagnosis: Frequent urination[ICD9: 788.41] Janet [facility] CPT[facility]: 44486 05/29/2012 OFFICE/OUTPATIENT VISIT EST Diagnosis: SINUSITIS, ACUTE[ICD9: 461.9] Diagnosis: OTALGIA[ICD9: 388.70] [facility] CPT[facility]: 96695 05/25/2012 OFFICE/OUTPATIENT VISIT EST Diagnosis: DM W/O COMPLICATION TYPE II, 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] Diagnosis: HYPERTENSION[ICD9: 401.9] Diagnosis: HYPERLIPIDEMIA NEC/NOS[ICD9: 272.4] eNela GREGORIO [facility]issaMendez [facility] CPT-4: 97889 04/07/2012 OFFICE/OUTPATIENT VISIT EST Diagnosis: FINGER INJURY[ICD9: 959.5] Janet Cunningham [facility] CPT-4: 64514 12/16/2011 ([id number]) OFFICE/OUTPATIENT VISIT EST Diagnosis: DM W/O COMPLICATION TYPE II, 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] Diagnosis: HYPERTENSION[ICD9: 401.9] Diagnosis: HYPERLIPIDEMIA NEC/NOS[ICD9: 272.4] Neela Cunningham [facility] CPT-4: 60796 12/03/2011 ([id number]) OFFICE/OUTPATIENT VISIT EST Diagnosis: DM W/O COMPLICATION TYPE II[ICD9: 250.00] Diagnosis: HYPERLIPIDEMIA NEC/NOS[ICD9: 272.4] Diagnosis: HYPERTENSION[ICD9: 401.9] Neela Cunningham ORE NDER [facility] CPT-4: 61227 08/29/2011 OFFICE/OUTPATIENT VISIT EST Diagnosis: DM W/O COMPLICATION TYPE II[ICD9: 250.00] Diagnosis: HYPERLIPIDEMIA NEC/NOS[ICD9: 272.4] Diagnosis: HYPERTENSION[ICD9: 401.9] Neela VALENTINE NDER DO [facility] CPT-4: 00598 05/30/2011 OFFICE/OUTPATIENT VISIT EST Diagnosis: SKIN SENSATION DISTURB[ICD9: 782.0] Neela GREGORIO S. ORENDER DO [facility] CPT-4: 01764 01/29/2011 OFFICE/OUTPATIENT VISIT EST Diagnosis: SKIN SENSATION DISTURB[ICD9: 782.0] Neela GREGORIO S. ORENDER [facility] CPT-4: 15956 01/14/2011 OFFICE/OUTPATIENT VISIT EST Neela VALENTINE NDER DO [facility] CPT- 4: 76288 01/01/2011 OFFICE/OUTPATIENT VISIT EST Neela MURILLO SMendez VALENTINE NDER [facility] CPT- 4: 12080 11/29/2010 ([id number]) OFFICE/OUTPATIENT VISIT EST Neela QURESHI AUNG S. ORENDER [facility] CPT-4: 54970 08/28/2010 ([id number]) OFFICE/OUTPATIENT VISIT, EST Neela WILDE S. ORENDER DO [facility] CPT-4: 26631 06/05/2010 ([id number]) OFFICE/OUTPATIENT VISIT, EST Neela Sergeushahao WILDE S. ORENDER [facility] CPT-4: 79703 02/05/2010 ([id number]) OFFICE/OUTPATIENT VISIT, EST Neela Yenni WILDE S[facility]END[facility] CPT-4: 53203 10/09/2009 ([id number]) OFFICE/OUTPATIENT VISIT, EST Neela Oreushahao SETH CHANI S. ORENDER DO [facility] CPT-4: 70613 08/22/2009 Plan of Care Planned Activity Notes Codes Status Date Visit Diagnosis Plan: Advanced chronic obstructive pul monary disease Discussion: Continue oxygen and pulmonary rehab Follow Up: 3 months ICD-9 : 496 ICD-10 : J44.9 05/10/2019 Visit Diagnosis Plan: Lymphoma involving lung Discussi on: Doing weekly lab and chemo ICD-9 : 202.82 ICD-10 : C85.99 05/10/2019 Appointment: Neela Hyman WPtel: [address] [place], [place] [phone] he called 04/14/19-- he was at physical [...] : J44.1 03/29/2019 Appointment: Neela Hyman WPtel: [address] [place] [address] Hospital Follow Up 03/29/2019 Appointment: Neela Hyman WPtel: [address] [place], [place] [phone] [place] INJECTION 03/04/2019 Visit Diagnosis Plan: Other nonspecific abnormal findi ng of lung field Discussion: Referral to pulmonology--will likely need bronchoscopy--path results discussed ICD-9 : 786.6 ICD-10 : R91.8 01/05/2019 Visit Diagnosis Plan: Chronic obstructiv e pulmonary disease with (acute) exacerbation Discussion: Increase SVNS with duoneb to QID Prednisone taper ICD-9 : 491.21 ICD-10 : J44.1 01/05/2019 Appointment: Neela Hyman WPtel: [address] [place], [place] [phone] FOLLOW UP 01/05/2019 Patient Education: prednisone- OptimizeRX Coupon [id number] https://www.[employer].com/samplemd/resources/getResource/61/j3ip3788-142p-4t12-ox Completed 01/05/2019 Care Plan: Referral Order SNOMED-CT : 30 [id number] Pending 01/05/2019 Appointment: Neela Hyman WPtel: [address] [place], [place] [phone] [place] CANCELED 12/21/2018 Visit Diagnosis Plan: Solitary pulmonary nodule Discus esmer: CT guided needle biopsy of RUL lung mass ICD-9 : 793.11 ICD-10 : R91.1 12/09/2018 Visit Diagnosis Plan: Tinea corporis Discussion: Diflu can--hold simvastatin and fenofibrate while taking ICD-9 : 110.5 ICD-10 : B35.4 12/09/2018 Appointment: Neela Hyman WPtel: [address] [place] [address] [place] FOLLOW UP 12/09/2018 Appointment: Gely Harp [address] [place] [address] [place] NO SHOW 12/01/2018 Visit Diagnosis Plan: [...] : J44.9 11/24/2018 Appointment: Neela Hyman WPtel: [address] [place], [place] [phone] US FOLLOW UP 11/24/2018 Care Plan: PET IMAGE FULL BODY LOINC : 4 2711-2 Pending 11/24/2018 Appointment: Neela Hyman WPtel: [address] [place], [place] [phone] [place] Consult 09/21/2018 Visit Diagnosis Plan: Pneumonia, unspecified organism Discussion: Patient clinically improved. Recent CT scan from 09/07 showed unresolved right upper lobe pneumonia. Finished another 7 days of levaquin. Will repeat CBC early next week. Order sent with patient to get done at [facility]. FU CT recommended in 4 weeks. Patient states understanding. ICD-9 : 486 ICD-10 : J18.9 09/16/2018 Appointment: Amita Henderson [facility] Xand [id number] FOLLOW UP 09/16/2018 Visit Diagnosis Plan: Pneumonia, unspecified organism Discussion: Clinically patient feels and looks much better but need CT scan of chest due to ongoing round pneumonia in association with his known lymphoma ICD-9 : 486 ICD-10 : J18.9 09/03/2018 Appointment: Neela Hyman WPtel: [address] [facility] FOLLOW UP 09/03/2018 Care Plan: CT [...] before upcoming appt. with doctor. [facility], CMP, TSH, Lipid, A1C ICD-9 : 250.02 ICD-10 : E11.65 08/27/2018 Visit Diagnosis Plan: Essential (primary) hypertension Discussion: Stable on diltiazem. Jc vieyra. Had ECHO last week. Requesting copies of results from cardiology. ICD-9 : 401.9 ICD-10 : I10 08/27/2018 Appointment: Amita Henderson [facility] Xand [id number] FOLLOW UP 08/27/2018 Visit Diagnosis Plan: Other specified sy mptoms and signs involving the circulatory and respiratory systems Discussion: Go back to 40 mg lasix daily and 20 of potassium. ECHO scheduled this week. Patient states understanding. ICD-9 : 785.9 ICD-10 : R09.89 08/13/2018 Visit Diagnosis Plan: Essential (primary) hypertension [...] ICD-9 : 491.21 ICD-10 : J44.1 08/13/2018 Appointment: Amita Henderson [facility] Xand [id number] [facility] FOLLOW UP 08/13/2018 Appointment: Amita Henderson [facility] Xand [id number] CANCELED 08/13/2018 Patient Education: prednisone- OptimizeRX Coupon [id number] https://www.[employer]/sample[employer]resources/getResource/61/hw26cw2f-6p94-6su3-3f Completed 08/13/2018 Visit Diagnosis Plan: Other specified [...] ICD-10 : J18.9 08/11/2018 Appointment: Amita Henderson [address] [place], [place] [address] ACUTE ILLNESS 08/11/2018 Care Plan: CHEST X-RAY 2VW FRONTAL&LATL LOINC : 45622-0 Pending 07/20/2018 Visit Diagnosis Plan: Dyspnea, unspecified Discussion: CXR- to be completed at the hospital. Will call with results and any adjustments in plan. Solumedrol 125 administered in clinic Prednisone 20 mg BID x 5 days- start tomorrow ICD-9 : 786.09 ICD-10 : R06.00 07/16/2018 Appointment: Amita Henderson [address] [place], [place] [address] ACUTE ILLNESS 07/16/2018 Patient Education: prednisone- OptimizeRX Coupon [id number] https://www.[employer]/samplemd/resources/getResource/61/64r3a6hv-fq88-1uc7-g1 Completed 07/16/2018 Visit Diagnosis Plan: Acute bronchitis due to other sp ecified organisms Discussion: Kenalog 40 mg IM administered in clinic. Doxycycline called into [facility]. Take as directed. Continue nebulizer and Trelegy. Follow up if symptoms are not improving with treatment regimen. Patient states understanding of all instruction. ICD-9 : 466.0 ICD-10 : J20.8 07/13/2018 Appointment: Amita Henderson [address] [place], [place] [address] ACUTE ILLNESS 07/13/2018 Patient Education: doxycycline hyclate- OptimizeRX Cou saritha [id number] https://www.[employer]/samplemd/resources/getResource/61/9p879r55-2i0w-8176-6s Completed 07/13/2018 Care Plan: [place] : [address]-0 Pending 07/13/2018 Care Plan: CBC Pending 07/13/2018 Care Plan: A1C HPLC LOINC : 76724-9 Pending 07/13/2018 Visit Diagnosis Plan: Mixed hyperlipidemia [...] : J44.9 06/03/2018 Appointment: Neela Hyman WPtel: [address] [place] [address] [place] FOLLOW UP 06/03/2018 Visit Diagnosis Plan: [...] ICD-10 : J44.9 05/04/2018 Appointment: Gely Harp [address] [place] [address] ACUTE ILLNESS 05/04/2018 Visit Diagnosis Plan: Localized edema Discussion: Cont inue lasix and potassium at every other day Recheck lab and fwup in 3mos Follow Up: 3 months ICD-9 : 782.3 ICD-10 : R60.0 03/03/2018 Appointment: Neela Hyman WPtel: [address] [place] [address] US FOLLOW UP 03/03/2018 Patient Education: Patient Medication Summary Completed 03/03/2018 Visit Diagnosis Plan: Localized edema Discussion: Finch ge lasix and potassium to every other day Check Chem 7 in 2 weeks and fwup ICD-9 : 782.3 ICD-10 : R60.0 02/17/2018 Appointment: Neela Hyman WPtel: [address] [place] [address] FOLLOW UP 02/17/2018 Patient Education: Patient Medication [...] ICD-10 : R60.0 02/10/2018 Visit Diagnosis Plan: Mixed hyperlipidemia Discussion: Stable ICD-9 : 272.4 ICD-10 : E78.2 02/10/2018 Appointment: Neela Hyman WPtel: [phone] [phone] [place] FOLLOW UP 02/10/2018 Patient Education: Patient [...] I10 11/05/2017 Appointment: Neela Hyman WPtel: [address] [facility] US FOLLOW UP 11/05/2017 Patient Education: Patient Medication Summary Completed 11/05/2017 Patient Education: Patient Medication Summary Completed 11/03/2017 Care Plan: [place] : [address]-8 Pending 11/03/2017 Care Plan: LIPID PANEL LOINC : 15096-0 Pending 11/03/2017 Care Plan: CBC Pending 11/03/2017 Care Plan: A1C HPLC LOINC : 32187-0 Pending 11/03/2017 Visit Diagnosis Plan: Allergic urticaria [...] ICD-10 : L50.0 09/09/2017 Appointment: Gely Harp [address] [place], [place] [address] ACUTE ILLNESS 09/09/2017 Patient Education: Patient Medication [...] ICD-10 : K29.00 08/07/2017 Appointment: Gely Harp [facility] [facility] Follow Up 08/07/2017 Patient Education: Patient Medication Summary Completed 08/07/2017 Visit Diagnosis Plan: Essential (primary) hypertension Discussion: Increase Cardizem CD to 360mg daily ICD-9 : 401.9 ICD-10 : I10 08/04/2017 Visit Diagnosis Plan: Type 2 diabetes mellitus without complications Discussion: Accuchecks daily Lab discussed Continue current meds ICD-9 : 250.00 ICD-10 : E11.9 08/04/2017 Appointment: Ne[facility]yman [facility]el[phone] [id number] FOLLOW UP 08/04/2017 Patient Education: Patient Medication Summary Completed 08/04/2017 Patient Education: Patient Medication Summary Completed 07/31/2017 Care Plan: [place] : [address]-6 Pending 07/31/2017 Care Plan: ASSAY THYROID STIM HORMONE Pen ding 07/31/2017 Care Plan: LIPID PANEL LOINC : 71419-7 Pending 07/31/2017 Care Plan: CBC Pending 07/31/2017 Care Plan: A1C HPLC LOINC : 09753-4 Pending 07/31/2017 Patient Education: Patient Medication Summary Completed 06/19/2017 Patient Education: Patient Medication Summary Completed 06/09/2017 Care Plan: CT SOFT TISSUE [place] : [address]-3 Pending 06/09/2017 Visit Diagnosis Plan: Acute sialoadenitis [...] ICD-10 : B02.9 06/04/2017 Appointment: Gely Harp [address] [place], [place] [address] ACUTE ILLNESS 06/04/2017 Patient Education: Patient Medication Summary Completed 06/04/2017 Visit Diagnosis Plan: Acute sialoadenitis Discussion: cleocin prescribed bid for 7 days. instructed patient to come back to clinic on friday and will re- evaluate swelling. if no improvement, will refer to dr. daivdson for possible drainage. if worsening by then, call or rtc also. ICD-9 : 527.2 ICD-10 : K11.21 06/02/2017 Visit Diagnosis Plan: Zoster without complications Dis cussion: discussed disease and incubation period, when patient is no longer contagious. treated with acyclovir 5x a day for a week. ICD-9 : 053.9 ICD-10 : B02.9 06/02/2017 App[facility]ment[facility] [facility] 06/02/2017 Patient Education: Patient Medication Summary Completed 06/02/2017 Visit Diagnosis Plan: Type 2 diabetes mellitus without complications Discussion: Continue current meds Accuchecks daily Follow Up: 3 months ICD-9 : 250.00 ICD-10 : E11.9 05/05/2017 Visit Diagnosis Plan: Essential (primary) hypertension Discussion: Increase Cardizem ER to 300mg q HS BP check in 1month ICD-9 : 401.9 ICD-10 : I10 05/05/2017 Visit Diagnosis Plan: Mixed hyperlipidemia Discussion: Stable ICD-9 : 272.4 ICD-10 : E78.2 05/05/2017 Appointment: [facility]el[phone] [facility] [facility] 05/05/2017 Patient Education: Patient Medication Summary Completed 05/05/2017 Patient Education: Patient Medication Summary Completed 05/01/2017 Care Plan: A1C HPLC [facility] : 75734-7 Pending 05/01/2017 Visit Diagnosis Plan: Impacted cerumen, bilateral Disc ussion: instructed to use debrox bid for 4 days. (has at home) informed him that he needs to refrain from using hearing aids for atleast 2 hours after using debrox. ICD-9 : 380.4 ICD-10 : H61.23 04/10/2017 Visit Diagnosis Plan: Chronic obstructiv e pulmonary [...] ICD-9 : 491.22 ICD-10 : J44.0 04/10/2017 Appointment: [facility] Harp [address] [facility] ACUTE ILLNESS 04/10/2017 Patient Education: Patient Medication Summary Completed 04/10/2017 Appointment: Neela Hyman WPtel: [address] [place], [place] [phone] [place] INJECTION 03/28/2017 Patient Education: Patient Medication [...] : I10 02/03/2017 Appointment: Neela Hyman WPtel: [address] [place], [place] [phone] FOLLOW UP 02/03/2017 Patient Education: Patient Medication Summary Completed 02/03/2017 Patient Education: Patient Medication Summary Completed 01/30/2017 Care Plan: [place] : [address]-9 Pending 01/30/2017 Care Plan: LIPID PANEL LOINC : 22198-8 Pending 01/30/2017 Care Plan: CBC Pending 01/30/2017 Care Plan: A1C HPLC LOINC : 74284-2 Pending 01/30/2017 Care Plan: ASSAY OF PSA [...] J44.9 10/30/2016 Appointment: Neela [facility]yman [facility]Ptel: [phone] [facility] [facility] 10/29 lm ~sl 10/30 [...] 08/30/2016 Appointment: [facility] [facility] [facility] / rang and rang rang 08/30 [...] : 466.0 ICD-10 : J20.9 08/27/2016 Appointment: Reinaldo [facility]ammi [facility] [facility] FOLLOW UP 08/27/2016 Patient Education: Patient Medication Summary Completed 08/27/2016 Care Plan: Referral Order SNOMED-CT : 30 [id number] Pending 08/27/2016 Visit Diagnosis Plan: Type 2 [...] E78.2 07/02/2016 Appointment: Neela Hyman WPtel: [phone] [facility] 07/01 rang and rang`sl FOLLOW UP 7 Patient Education: Patient Medication Summary Completed 07/02/2016 Patient Education: Patient Medication Summary Completed 06/27/2016 Care Plan: LIPID PANEL LOINC : 99480-5 Pending 06/27/2016 Care Plan: [place] : [address]-6 Pending 06/27/2016 Care Plan: A1C HPLC LOINC : 04619-7 Pending 06/27/2016 Visit Diagnosis Plan: Acute bronchitis, [...] ICD-10 : J20.9 06/14/2016 Appointment: Sammi Najera [address] [place], [place] [address] FOLLOW UP 06/14/2016 Patient Education: Patient Medication [...] ICD-10 : J20.9 06/13/2016 Appointment: Sammi Najera [address] [place], [place] [address] ACUTE ILLNESS 06/13/2016 Patient Education: Patient Medication Summary Completed 06/13/2016 Care Plan: CHEST X-RAY 2VW FRONTAL&LATL LOINC : 76476-8 Pending 06/13/2016 Visit Plan: Increase metoprolol to 100mg po BID BP readings and BP check in 1month 05/14/2016 Appointment: Neela Hyman WPtel: [facility] 05/13 rang and rang`sl FOLLOW UP 6 Patient Education: Patient Medication Summary Completed 05/14/2016 Visit Plan: Increase metoprolol to 50mg BID BP check in 1 week f/u BP appt 2 weeks consider musculoskeletal if pain returns 04/29/2016 Appointment: Neela Hyman WPtel: [address] [place], [place] [phone] 04/25 confimred~sl FOLLOW UP 04/29/2016 Patient Education: Patient Medication Summary Completed 04/29/2016 Visit Plan: Stat CT scan of abdomen/pelv is to look for stone Hydrate and use tramadol prn Increase metoprolol to 25mg po BID Will see urology pending CT scan results 04/22/2016 Appointment: Neela Hyman WPtel: [address] [place] [address] 04/17 confirmed-sp ACUTE ILLNESS 04/22/2016 Patient Education: [...] flu shot 04/01/2016 Appointment: Neela Hyman WPtel: [address] [place], [place] [phone] FOLLOW UP 04/01/2016 Patient Education: Patient Medication Summary Completed 04/01/2016 Patient Education: [facility] - Saving AutoInj - 18-64 - Dynamic Heber l ID Completed 04/01/2016 Patient Education: Patient Medication Summary Completed 03/28/2016 Care Plan: A1C HPLC LOINC : 07735-1 Pending 03/28/2016 Care Plan: [place] : 16[address]-7 Pending 03/28/2016 Visit Plan: Lab discussed Continue curre nt meds Accuchecks daily 11/30/2015 Appointment: Neela Hyman WPtel: [address] [place] [address] 11/28 confirmed~sl FOLLOW UP 11/30/2015 Patient Education: Patient Medication Summary Completed 11/30/2015 Appointment: Neela Hyman WPtel: [address] [place] [address] RESCHEDULED 11/28/2015 Patient Education: Patient Medication Summary Completed 11/23/2015 Care Plan: COMPREHEN METABOLIC [place] : 00922-4 Pending 11/23/2015 Care Plan: LIPID PANEL LOINC : 19175-0 Pending 11/23/2015 Care Plan: CBC Pending 11/23/2015 Care Plan: A1C HPLC LOINC : 13188-2 Pending 11/23/2015 Visit Plan: Lab discussed Accuchecks richard ly Continue current meds Cymbalta helping with feet and mood 08/29/2015 Appointment: Neela Hyman WPtel: [address] [place], [place] [phone] FOLLOW UP 08/29/2015 Patient Education: Patient Medication Summary Completed 08/29/2015 Visit Plan: Check CXR Stop all steroids and steroid inhalers Use SVN with but change to duoneb Add singulair for allergy etiology Change fluoxetine to cymbalta 60mg daily Viagra samples given to try prn--warned of no nitrates 08/14/2015 Appointment: Neela Hyman WPtel: [address] [place], [place] [phone] lm to reschedule ~sl 07/27 lm ~sl 08/09 busy 08/10 fer rosales-riley Annual Well Visit 08/14/2015 Patient Education: Patient Medication Summary Completed 08/14/2015 Care Plan: CHEST X-RAY 2VW FRONTAL&LATL LOINC : 85560-8 Ordered 08/14/2015 Visit Plan: Decadron 8mg given [...] if not improving as expected 08/09/2015 Appointment: Reinaldo Sammi [address] [facility] ER Follow UP 08/09/2015 Patient Education: Patient Medication Summary Completed 08/09/2015 Patient Education: [facility] - Saving AutoInj - 18-64 - Dynamic [...] with it 05/22/2015 Appointment: Neela Hyman WPtel: [address] [place], [place] [phone] 05/17 confirmed~sl FOLLOW UP 05/22/2015 Patient Education: Patient Medication Summary Completed 05/22/2015 Patient Education: Patient Medication Summary Completed 05/15/2015 Visit Plan: Obtain EMGs done at [place] from when fractured left arm Lab discussed Accuchecks daily 02/13/2015 Appointment: Neela Hyman WPtel: [address] [place], [place] [phone] 02/10 confrimed FOLLOW UP 02/13/2015 Patient Education: Patient Medication Summary Completed 02/13/2015 Patient Education: Patient Medication Summary Completed 02/09/2015 Visit Plan: discussed lab add fenofibrat e 134mg po daily recheck fasting lab in 3 months, CBC, CMP, Lipids, hgb AIC 11/07/2014 Appointment: Neela Hyman WPtel: [address] [place], [place] [phone] 11/04 appt confirmed cn FOLLOW UP 015 Patient Education: Patient Medication Summary Completed 11/07/2014 Patient Education: Patient Medication Summary Completed 11/03/2014 Visit Plan: Continue loratadine 10mg richard ly Notify if symptoms return 10/04/2014 Appointment: Neela Hyman WPtel: [address] [place] [address] confirmed on 10/03 at 2:42pm FOLLOW UP 09/23 Patient Education: Patient Medication Summary Completed 10/04/2014 Appointment: Neela Hyman WPtel: [address] [place] [address] ACUTE ILLNESS 09/28/2014 Appointment: Loren Garza WPtel: [address] [place] [address] FOLLOW UP 09/22/2014 Patient Education: Patient Medication Summary Completed 09/22/2014 Appointment: Loren Garza WPtel: [address] [place] [address] ACUTE ILLNESS 09/21/2014 Patient Education: Patient Medication Summary Completed 09/21/2014 Patient Education: [facility] - Saving AutoInj - 18+ - Dynamic Portal ID Completed 09/21/2014 Visit Plan: Lab discussed Continue daily accuchecks Continue current meds 06/28/2014 Appointment: Neela Hyman WPtel: [address] [place] [address] FOLLOW UP 06/28/2014 Patient Education: Patient Medication Summary Completed 06/28/2014 Patient Education: Patient Medication Summary Completed 06/23/2014 Appointment: Sarah Sunshine WPtel: [address] [place] [address] ACUTE ILLNESS 06/10/2014 Patient Education: Patient Medication Summary Completed 06/10/2014 Patient Education: [facility] - Saving AutoInj - 18+ - Dynamic Portal ID Completed 06/10/2014 Visit Plan: Lab discussed Continue daily accuchecks Continue current meds 03/29/2014 Appointment: Neela Hyman WPtel: [address] [place] [address] FOLLOW UP 03/29/2014 Patient Education: Patient Medication Summary Completed 03/29/2014 Patient Education: Patient Medication Summary Completed 03/23/2014 Visit Plan: Lab discussed Continue curre nt meds and accuchecks See surgery for removal of hand lesion 11/30/2013 Appointment: Neela Hyman WPtel: [address] [place] [address] 11/29 no answer FOLLOW UP 11/30/2013 Patient Education: Patient Medication Summary Completed 11/30/2013 Visit Plan: Lab discussed Continue curre nt meds 08/03/2013 Appointment: Neela Hyman WPtel: [address] [place] [address] FOLLOW UP 08/03/2013 Patient Education: Patient Medication Summary Completed 08/03/2013 Visit Plan: Lab Discussed Will continue current meds and pt will get back on diet/exercise Check lab in 4mos and fwup 04/06/2013 Appointment: Neela Hyman WPtel: [address] [place] [address] FOLLOW UP 04/06/2013 Patient Education: Patient Medication Summary Completed 04/06/2013 Visit Plan: Lab discussed Continue daily accuchecks 12/01/2012 Appointment: Neela Hyman WPtel: [address] [place] [address] 11/30 no answer FOLLOW UP 12/01/2012 Patient Education: Patient Medication Summary Completed 12/01/2012 Visit Plan: Continue current meds and da russell accuchecks Lab discussed 08/04/2012 Appointment: Neela Hyman WPtel: [address] [place] [address] FOLLOW UP 08/04/2012 Patient Education: Patient Medication Summary Completed 08/04/2012 Appointment: Neela Hyman WPtel: [address] [place], [place] [phone] [facility] 06/01/2012 Patient Education: Patient Medication Summary Completed 06/01/2012 Appointment: Janet Jean Baptiste WPtel: [address] [place], [place] [phone] FOLLOW UP 05/29/2012 Patient Education: Patient Medication Summary Completed 05/29/2012 Visit Plan: pt states Dr. Hyman told h is to increase his Prozac dose while she was talking to her at [facility]. Discussed that pt. should not increase or decrease dosage without Dr's knowledge. Pt. will seek hearing test here in town at the hearing aid place on [address]. Discussed that ear pain is likely caused by sinus pressure. Pt. will notify if no improvement. 05/25/2012 Appointment: Janet Jean Baptiste WPtel: [address] [place] [address] ACUTE ILLNESS 05/25/2012 Patient Education: Patient Medication Summary Completed 05/25/2012 Visit Plan: Continue current meds Contin ue daily accuchecks but alternate times Increase fish oil to 3gm daily 04/07/2012 Appointment: Neela Hyman WPtel: [address] [place], [place] [phone] 04/06 FOLLOW UP 04/07/2012 Patient Education: Patient Medication Summary Completed 04/07/2012 Appointment: Janet Jean Baptiste WPtel: [address] [place] [address] ACUTE ILLNESS 12/16/2011 Patient Education: Patient Medication Summary Completed 12/16/2011 Visit Plan: Increase 12/03/2011 Appointment: Neela Hyman WPtel: [address] [place], [place] [phone] [place] FOLLOW UP 12/03/2011 Patient Education: Patient Medication Summary Completed 12/03/2011 Visit Plan: Continue current meds Contin ue accuchecks 08/29/2011 Appointment: Neela Hyman WPtel: [address] [place], [place] [phone] [place] FOLLOW UP 08/29/2011 Patient Education: Patient Medication Summary Completed 08/29/2011 Visit Plan: Continue current meds except restart zocor 05/30/2011 Appointment: Neela Hymantel: [address] [place], [place] [phone] [place] FOLLOW UP 05/30/2011 Patient Education: Patient Medication Summary Completed 05/30/2011 Visit Plan: Continue tennis elbow strap May go back to weight-lifing--light weigts every other day 01/29/2011 Appointment: Neela Hyman WPtel: [address] [place], [place] [phone] [place] FOLLOW UP 01/29/2011 Patient Education: Patient Medication Summary Completed 01/29/2011 Visit Plan: Continue tennis elbow strap and anti-inflammatories 01/14/2011 Appointment: Neela Hyman WPtel: [address] [place] [address] FOLLOW UP 01/14/2011 Appointment: Janet Jean Baptiste WPtel: [address] [place] [address] NEW PATIENT 01/14/2011 Patient Education: Patient Medication Summary Completed 01/14/2011 Appointment: Neela Hyman WPtel: [address] [place] [address] FOLLOW UP 01/08/2011 Appointment: Neela Hyman WPtel: [address] [place] [address] FOLLOW UP 01/01/2011 Appointment: Neela Hyman WPtel: [address] [place], [place] [address] UA 01/01/2011 Patient Education: Patient Medication Summary [...] 11/29/2010 Appointment: Janet Jean Baptiste WPtel: [address] [place] [address] ACUTE ILLNESS 11/29/2010 Patient Education: Patient Medication Summary Completed 11/29/2010 Visit Plan: Cont current meds Check CMP, Lipids, HbA1C 08/28/2010 Appointment: Neela Hyman WPtel: [address] [place] [address] FOLLOW UP 08/28/2010 Patient Education: Patient Medication Summary Completed 08/28/2010 Visit Plan: Cont current meds and accuch ecks Add Zocor 40mg q HS Check Lipids and HbA1C in 3mos 06/05/2010 Appointment: Neela Hyman WPtel: [address] [place] [address] FOLLOW UP 06/05/2010 Patient Education: Patient Medication Summary Completed 06/05/2010 Visit Plan: Check Lipids and HbA1C 02/05/2010 Appointment: Neela Hyman WPtel: [address] [place] [address] FOLLOW UP 02/05/2010 Patient Education: Patient Medication Summary Completed 02/05/2010 Visit Plan: HbA1C in 3mos. Continue Accu checks BID alternating times. Check HbA1C, CMP, Lipids 10/09/2009 Appointment: Neela Hyman WPtel: [address] [place] [address] FOLLOW UP 10/09/2009 Patient Education: Patient Medication Summary Completed 10/09/2009 Visit Plan: Saline nasal flushes prn. Ty lenol/Motrin prn headache. Notify if persists/symptoms worsening. 08/22/2009 Appointment: Neela Hyman WPtel: [address] [place] [address] ACUTE ILLNESS 08/22/2009 Patient Education: Patient Medication Summary Completed 08/22/2009 Referral: Aubrey Rand WPtel: [address] [place], [place] [id number] [place] Office will verfy his insurance then they will contact patient Completed Referral: Shahbaz Brennan WPtel: [address] [facility] [address] [id number] [place] Referral Completed Referral: Ion Levi [address] [id number] [place] Referral Appointment Requested Referral: Ion Levi [address] [facility] [address] [id number] [place] Referral Appointment Requested Instructions Comment . [...] with it . Obtain EMGs done at [place] from when fractured left arm Lab discussed [...] while she was talking to her at [facility]. Discussed that pt. should not increase or decrease dosage without Dr's knowledge. Pt. will seek hearing test here in town at the hearing aid place on [address]. Discussed that ear pain is likely caused [...]
--- OUTSIDE RECORDS SUMMARY | 2019-12-09 09:23 | XMS REPORT | CCD ---
Author Author Michael Hyman D.O. Organization [facility] Address [address] [place] [address] Phone Care Team Providers Care On Site [employer] Technician Name Role Phone Neela Hyman D.O., PP Unavailable CCM Unavailable Summary Purpose Interface Exchange Insurance Providers Payer name Policy type / Coverage type Covered libertarian ID Effective Begin Date Effective End Date ABS FOR [employer] Commercial Insurance [id number] Unknown Family History Family History data not found Social History Social History Element Codes Description Effective Dates Marital status Unknown 05/30/[address]: 5895307 Former smoker quit 25 years ago 01/01/2011 [...] 400 mg (241.3 mg magnesium) tablet RxNorm: 067739 1 Table t(s) Oral QD 04/26/2019 06/24/2019 Active Lasix 40 mg tablet RxNorm: 974764 40 MG PO DAILY 04/12/2019 No Stop Da te Active Benicar 40 mg tablet RxNorm: 342111 1 Tablet(s) Oral QD 03/29/2019 Active potassium chloride ER 20 mEq tablet,extended release RxNorm: 189041 1 Tablet(s) Oral two times a day 03/29/2019 06/27/2019 Active metformin 500 mg tablet RxNorm: 695619 2 Tablet(s) Oral two afshan es a day 03/29/2019 No Stop Date Active potassium chloride ER 20 mEq tablet,extended release RxNorm: 887367 1 Tablet(s) Oral QD 03/29/2019 03/28/2019 Inactive Benicar 40 mg tablet RxNorm: 895579 1 Tablet(s) Oral QD 03/29/2019 Inactive MagOx 400 mg (241.3 mg magnesium) tablet RxNorm: 770782 1 Table t(s) Oral QD 03/29/2019 04/25/2019 Inactive fenofibrate micronized 134 mg capsule RxNorm: 175970 TA KE ONE CAPSULE BY MOUTH EVERY DAY 03/05/2019 08/31/2019 Active duloxetine 60 mg capsule,delayed release RxNorm: 348984 1 Capsu le(s) PO QD 01/28/2019 07/26/2019 Active Trelegy Ellipta 100 mcg-62.5 mcg-25 mcg powder for inhalatio n RxNorm: 7318759 1 Puff(s) INH QD 01/06/2019 12/31/2019 Active 90 day supply prednisone 20 mg tablet RxNorm: 683554 1 Tablet(s) PO T ID for 3 days then 1 po BID for 3 days then 1 po daily for 3 days 01/05/2019 03/28/2019 Inacti ve metformin ER 1,000 mg tablet,extended release 24hr RxNorm: 1 210763 TAKE TWO TABLETS (1000MG) BY MOUTH TWO TIMES A DAY 12/22/2018 03/28/2019 Inacti ve Diflucan 100 mg tablet RxNorm: 314494 1 Tablet(s) PO QD 12/09/2018 Inactive albuterol sulfate 2.5 mg/3 mL (0.083 %) solution for n ebulization RxNorm: 683353 3 Milliliter(s) INH ONE VIAL VIA NEBULIZER EVERY 4 HOURS 019 07/21/2019 Active [AttnRPh: Saving apply/adjudicate RxGRP: SG20 RxBIN:[id number] RxPCN: ID#:[id number]] prednisone 20 mg tablet RxNorm: 708948 1 Tablet(s) PO B ID for 4 days then 1 po daily for 4 days 11/24/2018 01/04/2019 Inactive Trelegy Ellipta 100 mcg-62.5 mcg-25 mcg powder for inhalatio n RxNorm: 7037387 1 Puff(s) INH QD 10/27/2018 01/06/2019 Inactive 90 day supply diltiazem ER 360 mg capsule,24 hr,extended release RxNorm: 8 07188 TAKE ONE CAPSULE BY MOUTH AT BEDTIME -REPLACES 300MG 10/13/2018 04/10/2019 Inactive metoprolol succinate ER 100 mg tablet,extended release 24 hr RxNorm: 829802 TAKE ONE TABLET BY MOUTH TWICE A DAY 10/13/2018 07/09/2019 Active Trelegy Ellipta 100 mcg-62.5 mcg-25 mcg powder for inhalatio n RxNorm: 4938266 INHALE ONE PUFF ONCE DAILY 09/07/2018 10/27/2018 Inactive Levaquin 750 mg tablet RxNorm: 693339 1 Tablet(s) PO QD 09/07/2018 Inactive Levaquin 750 mg tablet RxNorm: 684897 1 Tablet(s) PO QD 09/07/2018 Inactive prednisone 20 mg tablet RxNorm: 747907 2 Tablet(s) PO QAM 08/13/2018 08/19/2018 Inactive Levaquin 500 mg tablet RxNorm: 276903 1 Tablet(s) PO QD 08/11/2018 Inactive fenofibrate micronized 134 mg capsule RxNorm: 524693 TA KE ONE CAPSULE BY MOUTH EVERY DAY 08/10/2018 02/05/2019 Inactive prednisone 20 mg tablet RxNorm: 354320 1 Tablet(s) PO BID 07/16/2018 07/20/2018 Inactive doxycycline hyclate 100 mg capsule RxNorm: 7772917 1 Capsule(s) PO BID 07/13/2018 07/22/2018 Inactive duloxetine 60 mg capsule,delayed release RxNorm: 182521 TAKE ONE CAPSULE BY MOUTH ONCE A DAY 07/08/2018 01/28/2019 Inactive Lasix 40 mg tablet RxNorm: 849686 1 TABLET(S) PO QAM 06/08/201809/05 Inactive potassium chloride ER 20 mEq tablet,extended release(p art/cryst) RxNorm: 1789448 1 TABLET(S) PO QD 06/08/2018 09/05/2018 Inactive metformin ER 1,000 mg tablet,extended release 24hr RxNorm: 1 362549 TAKE TWO TABLETS (1000MG) BY MOUTH TWO TIMES A DAY 06/01/2018 11/27/2018 Inacti ve Zocor 40 mg tablet RxNorm: 498538 TAKE ONE TABLET BY M OUTH EVERY NIGHT AT BEDTIME 05/11/2018 08/03/2019 Active Benicar HCT 40 mg-25 mg tablet RxNorm: 870449 TAKE ONE TABLET BY MOUTH ONCE DAILY 05/11/2018 03/28/2019 Inactive Trelegy Ellipta 100 mcg-62.5 mcg-25 mcg powder for inhalatio n RxNorm: 5612661 1 PUFF(S) INH QD 04/06/2018 07/04/2018 Inactive diltiazem ER 360 mg capsule,24 hr,extended release RxNorm: 8 75183 1 Capsule(s) PO QHS replaces 300mg dose 03/30/2018 09/25/2018 Inactive Trelegy Ellipta 100 mcg-62.5 mcg-25 mcg powder for inhalatio n RxNorm: 9060916 1 Puff(s) INH QD 02/24/2018 02/23/2018 Inactive Trelegy Ellipta 100 mcg-62.5 mcg-25 mcg powder for inhalatio n RxNorm: 2191809 1 Puff(s) INH QD 02/24/2018 02/23/2018 Inactive Trelegy Ellipta 100 mcg-62.5 mcg-25 mcg powder for inhalatio n RxNorm: 0667125 1 Puff(s) INH QD 02/24/2018 04/05/2018 Inactive Lasix 40 mg tablet RxNorm: 036043 1 Tablet(s) PO QAM 02/10/201803/11 Inactive potassium chloride ER 20 mEq tablet,extended release(p art/cryst) RxNorm: 4037407 1 Tablet(s) PO QD 02/10/2018 03/11/2018 Inactive fenofibrate micronized 134 mg capsule RxNorm: 583756 1 Capsule( s) PO QD 01/30/2018 07/28/2018 Inactive metoprolol succinate ER 100 mg tablet,extended release 24 hr RxNorm: 279330 TAKE ONE TABLET BY MOUTH TWICE A DAY 12/30/2017 09/25/2018 Inactive metformin ER 1,000 mg tablet,extended release 24hr RxNorm: 1 796233 1 Tablet(s) PO BID 11/17/2017 05/15/2018 Inactive [SAVINGS FOR NON -COVERED DRUGS -- BIN:975708, PCN: ASPROD1, Group: XXXXX, ID# [id number], Questions: . THIS IS NOT INSURANCE.] Benicar HCT 40 mg-25 mg tablet RxNorm: 630533 1 Tablet(s) PO QD 05/10/2018 Inactive [SAVINGS FOR NON-COVERED JESU GS -- BIN:968501, PCN: ASPROD1, Group: XXXXX, ID# [id number], Questions: . THIS IS NOT INSURANCE.] Bactroban 2 % topical cream RxNorm: 479420 Application TOP BID 10/2409/02/2018 Inactive clindamycin HCl 300 mg capsule RxNorm: 499624 2 Capsule(s) PO TID 0 11/05/2017 11/18/2017 Inactive duloxetine 60 mg capsule,delayed release RxNorm: 615640 Capsule(s) TAKE ONE CAPSULE BY MOUTH ONCE DAILY 09/24/2017 09/23/2017 Inactive triamcinolone acetonide 0.1 % topical ointment RxNorm: 5829249 1 TOP BID 09/09/2017 11/04/2017 Inactive Bactrim DS 800 mg-160 mg tablet RxNorm: 045865 1 Tablet(s) PO BID 0 08/07/2017 08/13/2017 Inactive metronidazole 500 mg tablet RxNorm: 868460 1 Tablet(s) PO BID 08/0708/13/2017 Inactive diltiazem ER 360 mg capsule,24 hr,extended release RxNorm: 8 98235 1 Capsule(s) PO QHS replaces 300mg dose 08/04/2017 01/30/2018 Inactive fenofibrate micronized 134 mg capsule RxNorm: 010140 1 Capsule( s) PO QD 07/21/2017 01/30/2018 Inactive Zocor 40 mg tablet RxNorm: 042611 1 Tablet(s) PO QHS 07/21/201705/10 Inactive GB duloxetine 60 mg capsule,delayed release RxNorm: 631990 Capsule(s) TAKE ONE CAPSULE BY MOUTH ONCE DAILY 06/24/2017 09/24/2017 Inactive Cleocin HCl 300 mg capsule RxNorm: 868529 2 Capsule(s) PO BID 06/0206/08/2017 Inactive acyclovir 800 mg tablet RxNorm: 948617 1 Tablet(s) PO 5x day 201706/08/2017 Inactive diltiazem ER 300 mg capsule,24 hr,extended release RxNorm: 8 12694 1 Capsule(s) PO QHS replaces 240mg dose 05/05/2017 08/03/2017 Inactive ipratropium-albuterol 0.5 mg-3 mg(2.5 mg base)/3 mL ne bulization soln RxNorm: 9507746 1 Unit Dose INH Q4H as needed 05/05/2017 01/04/2019 Inactive metformin ER 1,000 mg tablet,extended release 24hr RxNorm: 1 505832 1 Tablet(s) PO BID 04/28/2017 11/17/2017 Inactive [SAVINGS FOR NON -COVERED DRUGS -- BIN:096168, PCN: ASPROD1, Group: XXXXX, ID# [id number], Questions: . THIS IS NOT INSURANCE.] diltiazem ER (XR/XT) 240 mg capsule,extended release 2 4 hr, controlled RxNorm: 598442 TAKE ONE CAPSULE BY MOUTH EVERY DAY 04/15/2017 05/04/2017 Inact avani prednisone 20 mg tablet RxNorm: 124588 1 Tablet(s) PO QD 04/10/2017 1 06/14/2016 Inactive Breo Ellipta 200 mcg-25 mcg/dose powder for inhalation RxNor m: 7241348 1 Puff(s) INH QD 04/10/2017 02/09/2018 Inactive Breo Ellipta 200 mcg-25 mcg/dose powder for inhalation RxNor m: 7324583 1 Puff(s) INH QD 04/10/2017 04/09/2017 Inactive Levaquin 500 mg tablet RxNorm: 022117 1 Tablet(s) PO QD 04/10/2017 Inactive metoprolol succinate ER 100 mg tablet,extended release 24 hr RxNorm: 590951 TAKE ONE TABLET BY MOUTH TWICE A DAY 03/24/2017 12/18/2017 Inactive fenofibrate micronized 134 mg capsule RxNorm: 692005 1 Capsule( s) PO QD 01/16/2017 07/21/2017 Inactive Benicar HCT 40 mg-25 mg tablet RxNorm: 202525 1 Tablet(s) PO QD 11/17/2017 Inactive [SAVINGS FOR NON-COVERED JESU GS -- BIN:189138, PCN: ASPROD1, Group: XXXXX, ID# [id number], Questions: . THIS IS NOT INSURANCE.] metoprolol succinate ER 100 mg tablet,extended release 24 hr RxNorm: 339468 1 Tablet(s) PO BID 10/16/2016 03/23/2017 Inactive diltiazem ER (XR/XT) 240 mg capsule,extended release 2 4 hr, controlled RxNorm: 419982 1 Capsule(s) PO QD 10/16/2016 04/13/2017 Inactive [SAVINGS FOR NON- COVERED DRUGS -- BIN:317452, PCN: ASPROD1, Group: XXXXX, ID# XXXXXXX, Questions: . THIS IS NOT INSURANCE.] metformin ER 1,000 mg tablet,extended release 24hr RxNorm: 8 46297 1 Tablet(s) PO BID 10/16/2016 04/28/2017 Inactive [SAVINGS FOR NON -COVERED DRUGS -- BIN:604831, PCN: ASPROD1, Group: XXXXX, ID# [id number], Questions: . THIS IS NOT INSURANCE.] Zocor 40 mg tablet RxNorm: 106138 1 Tablet(s) PO QHS 10/16/201607/21 Inactive GB Singulair 10 mg tablet RxNorm: 555250 Tablet(s) 1 TABLET(S) PO QHS 08/27/2016 09/02/2018 Inactive prednisone 20 mg tablet RxNorm: 427352 1 Tablet(s) PO QD 08/27/2016 0 08/31/2016 Inactive ipratropium-albuterol 0.5 mg-3 mg(2.5 mg base)/3 mL ne bulization soln RxNorm: 1204778 1 Unit Dose INH Q4H as needed 08/27/2016 05/04/2017 Inactive metoprolol succinate ER 100 mg tablet,extended release 24 hr RxNorm: 265260 TAKE ONE TABLET BY MOUTH TWICE A DAY 08/05/2016 10/16/2016 Inactive duloxetine 60 mg capsule,delayed release RxNorm: 574695 TAKE ONE CAPSULE BY MOUTH ONCE DAILY 08/05/2016 06/24/2017 Inactive prednisone 20 mg tablet RxNorm: 679270 1 Tablet(s) PO QD 06/14/2016 0 06/18/2016 Inactive ipratropium-albuterol 0.5 mg-3 mg(2.5 mg base)/3 mL ne bulization soln RxNorm: 7396203 1 Unit Dose INH Q4H as needed 06/13/2016 08/26/2016 Inactive Levaquin 500 mg tablet RxNorm: 434536 1 Tablet(s) PO QD 06/13/2016 Inactive metoprolol succinate ER 100 mg tablet,extended release 24 hr RxNorm: 119579 1 Tablet(s) PO BID replaces 50mg dose 05/14/2016 07/12/2016 Inactive metoprolol succinate ER 50 mg tablet,extended release 24 hr RxNorm: 360417 1 Tablet(s) PO BID 04/29/2016 05/13/2016 Inactive prednisone 20 mg tablet RxNorm: 929329 1 Tablet(s) PO BID 04/22/2016 04/21/2016 Inactive prednisone 20 mg tablet RxNorm: 647838 1 Tablet(s) PO BID 04/22/2016 04/28/2016 Inactive Singulair 10 mg tablet RxNorm: 706529 Tablet(s) 1 TABLET(S) PO QHS 04/01/2016 08/26/2016 Inactive metoprolol succinate ER 25 mg tablet,extended release 24 hr RxNorm: 401954 1 Tablet(s) PO QHS for blood pressure 04/01/2016 05/13/2016 Inactive fenofibrate micronized 134 mg capsule RxNorm: 572101 TA KE ONE CAPSULE BY MOUTH DAILY 01/25/2016 01/16/2017 Inactive duloxetine 60 mg capsule,delayed release RxNorm: 023687 TAKE ONE CAPSULE BY MOUTH ONCE DAILY 01/25/2016 08/04/2016 Inactive Zocor 40 mg tablet RxNorm: 236496 TAKE ONE TABLET BY MOUTH AT B EDTIME 11/13/2015 10/16/2016 Inactive GB metformin ER 1,000 mg tablet,extended release 24hr RxNorm: 8 42088 1 Tablet(s) PO BID 10/26/2015 10/16/2016 Inactive [SAVINGS FOR NON -COVERED DRUGS -- BIN:095186, PCN: ASPROD1, Group: XXXXX, ID# [id number], Questions: . THIS IS NOT INSURANCE.] Benicar HCT 40 mg-25 mg tablet RxNorm: 072353 1 Tablet(s) PO QD 06/201511/11/2016 Inactive [SAVINGS FOR NON-COVERED JESU GS -- BIN:439874, PCN: ASPROD1, Group: XXXXX, ID# [id number], Questions: . THIS IS NOT INSURANCE.] diltiazem ER (XR/XT) 240 mg capsule,extended release,control led RxNorm: 591185 1 Capsule(s) PO QD 10/26/2015 10/15/2016 Inactive [SAVINGS FOR NO N-COVERED DRUGS -- BIN:081763, PCN: ASPROD1, Group: XXXXX, ID# [id number], Questions: . THIS IS NOT INSURANCE.] Singulair 10 mg tablet RxNorm: 263096 1 TABLET(S) PO QHS 09/18/2015 1 05/31/2015 Inactive Viagra 100 mg tablet RxNorm: 379103 1 Tablet(s) PO as needed 201511/23/2018 Inactive Singulair 10 mg tablet RxNorm: 897237 1 Tablet(s) PO QHS 08/16/2015 0 08/15/2015 Inactive Singulair 10 mg tablet RxNorm: 004677 1 Tablet(s) PO QHS 08/16/2015 0 09/14/2015 Inactive duloxetine 60 mg capsule,delayed release RxNorm: 734930 1 Capsule(s) PO QD replaces fluoxetine 08/14/2015 01/24/2016 Inactive ipratropium-albuterol 0.5 mg-3 mg(2.5 mg base)/3 mL ne bulization soln RxNorm: 2065907 1 Unit Dose INH Q4H as needed 08/14/2015 06/12/2016 Inactive prednisone 20 mg tablet RxNorm: 174503 Take 3 tabs PO o nce daily x 3 days, then 2 tabs PO once daily x 3 days and then 1 tab PO once daily x 3 days 08/09/2015 08/13/2015 Inactive Symbicort 160 mcg-4.5 mcg/actuation HFA aerosol inhaler RxNo rm: 0387360 2 Puff(s) INH BID 08/09/2015 08/13/2015 Inactive Zocor 40 mg tablet RxNorm: 585978 1 Tablet(s) PO QHS 05/23/201511/11 Inactive [AttnRPh: Saving apply/adjudicate RxGRP: SG20 RxBIN:[id number] RxPCN: ID#:[id number]] Benicar HCT 40 mg-25 mg tablet RxNorm: 436367 1 Tablet(s) PO QD 10/26/2015 Inactive [SAVINGS FOR NON-COVERED JESU GS -- BIN:200781, PCN: ASPROD1, Group: XXXXX, ID# [id number], Questions: . THIS IS NOT INSURANCE.] diltiazem ER (XR/XT) 240 mg capsule,extended release,control led RxNorm: 049073 1 Capsule(s) PO QD 04/24/2015 10/20/2015 Inactive [SAVINGS FOR NO N-COVERED DRUGS -- BIN:044335, PCN: ASPROD1, Group: XXXXX, ID# XXXXXXX, Questions: . THIS IS NOT INSURANCE.] fluoxetine 40 mg capsule RxNorm: 395964 1 Capsule(s) PO QD 04/24/20 15 08/13/2015 Inactive [SAVINGS FOR NON-COVERED JESU GS -- BIN:356195, PCN: ASPROD1, Group: XXXXX, ID# XXXXXXX, Questions: . THIS IS NOT INSURANCE.] Zocor 40 mg tablet RxNorm: 192614 TABLET(S) 1 TABLET(S) PO QHS 01/2505/23/2015 Inactive [AttnRPh: Saving apply/adjud icate RxGRP:SG20 RxBIN:[id number] RxPCN: ID#:[id number]] metformin ER 1,000 mg tablet,extended release 24hr RxNorm: 8 84287 1 TABLET(S) PO BID 01/29/2015 10/26/2015 Inactive [SAVINGS FOR NON -COVERED DRUGS -- BIN:641326, PCN: ASPROD1, Group: XXXXX, ID# [id number], Questions: . THIS IS NOT INSURANCE.] fenofibrate micronized 134 mg capsule RxNorm: 164659 1 CAPSULE( S) PO QD 01/23/2015 01/17/2016 Inactive fenofibrate micronized 134 mg capsule RxNorm: 021433 1 Capsule( s) PO QD 11/07/2014 01/22/2015 Inactive diltiazem ER (XR/XT) 240 mg capsule,extended release,control led RxNorm: 549522 1 Capsule(s) PO QD 10/24/2014 04/24/2015 Inactive [SAVINGS FOR NO N-COVERED DRUGS -- BIN:693079, PCN: ASPROD1, Group: XXXXX, ID# XXXXXXX, Questions: . THIS IS NOT INSURANCE.] Benicar HCT 40 mg-25 mg tablet RxNorm: 869231 1 Tablet(s) PO QD 05/201404/24/2015 Inactive [SAVINGS FOR NON-COVERED JESU GS -- BIN:109162, PCN: ASPROD1, Group: XXXXX, ID# XXXXXXX, Questions: . THIS IS NOT INSURANCE.] fluoxetine 40 mg capsule RxNorm: 435246 1 Capsule(s) PO QD 10/25/19 15 04/24/2015 Inactive [SAVINGS FOR NON-COVERED JESU GS -- BIN:027792, PCN: ASPROD1, Group: XXXXX, ID# XXXXXXX, Questions: . THIS IS NOT INSURANCE.] azithromycin 500 mg tablet RxNorm: 789774 1 Tablet(s) PO QD 015 09/27/2014 Inactive [SAVINGS FOR NON-COVERED JESU GS -- BIN:848582, PCN: ASPROD1, Group: XXXXX, ID# XXXXXXX, Questions: . THIS IS NOT INSURANCE.] albuterol sulfate 2.5 mg/3 mL (0.083 %) solution for n ebulization RxNorm: 219225 3 Milliliter(s) INH ONE VIAL VIA NEBULIZER EVERY 4 HOURS 015 11/19/2014 Inactive [AttnRPh: Saving apply/adjudicate RxGRP: SG20 RxBIN:[id number] RxPCN: ID#:[id number]] Zocor 40 mg tablet RxNorm: 319847 TABLET(S) 1 TABLET(S ) PO QHS 1 TABLET(S) PO QHS 09/04/2014 02/21/2015 Inactive [AttnRPh: Saving apply/adjudicate RxGRP:SG20 RxBIN:[id number] RxPCN: ID#:[id number]] metformin ER 1,000 mg tablet,extended release 24hr RxNorm: 8 22687 1 Tablet(s) PO BID 08/04/2014 01/28/2015 Inactive [SAVINGS FOR NON -COVERED DRUGS -- BIN:215466, PCN: ASPROD1, Group: XXXXX, ID# XXXXXXX, Questions: . THIS IS NOT INSURANCE.] Bromfed DM 2 mg-30 mg-10 mg/5 mL syrup RxNorm: 0339625 1 -2 Teaspoon(s) PO Q4H as needed for cough 06/10/2014 06/19/2014 Inactive [SAVINGS FOR UN INSURED PATIENTS -- BIN:270971, PCN: ASPROD1, Group: AME08, ID# [id number], Process claim through [employer], for questions: . THIS IS NOT INSURANCE.] Augmentin 875 mg-125 mg tablet RxNorm: 650411 1 Tablet(s) PO Q12H 0 06/10/2014 06/19/2014 Inactive [AttnRPh: Saving apply/adjud icate RxGRP:SG20 RxBIN:[id number] RxPCN:HT ID#:[id number]] Zocor 40 mg tablet RxNorm: 730238 Tablet(s) 1 TABLET(S ) PO QHS 1 TABLET(S) PO QHS 05/25/2014 08/22/2014 Inactive [AttnRPh: Saving apply/adjudicate RxGRP:SG20 RxBIN:[id number] RxPCN:HT ID#:[id number]] fluoxetine 40 mg capsule RxNorm: 393951 1 Capsule(s) PO QD 04/29/20 14 10/24/2014 Inactive [AttnRPh: Saving apply/adjud icate RxGRP:SG20 RxBIN:[id number] RxPCN:HT ID#:[id number]] diltiazem ER (XR/XT) 240 mg capsule,extended release,control led RxNorm: 635087 1 Capsule(s) PO QD 04/29/2014 10/24/2014 Inactive [AttnRPh: Savin g apply/adjudicate RxGRP:SG20 RxBIN:[id number] RxPCN:HT ID#:[id number]] Benicar HCT 40 mg-25 mg tablet RxNorm: 123917 1 Tablet(s) PO QD 09/201310/24/2014 Inactive [AttnRPh: Saving apply/adjud icate RxGRP:SG20 RxBIN:[id number] RxPCN:HT ID#:[id number]] Zocor 40 mg tablet RxNorm: 265407 1 TABLET(S) PO QHS 1 TABLET(S ) PO QHS 03/07/2014 05/25/2014 Inactive [AttnRPh: Saving chelsie ly/adjudicate RxGRP:SG20 RxBIN:[id number] RxPCN:HT ID#:[id number]] Zocor 40 mg tablet RxNorm: 330874 1 Tablet(s) PO QHS 1 TABLET(S ) PO QHS 12/06/2013 03/05/2014 Inactive [AttnRPh: Saving chelsie ly/adjudicate RxGRP:SG20 RxBIN:[id number] RxPCN:HT ID#:[id number]] diltiazem ER (XR/XT) 240 mg capsule,extended release,control led RxNorm: 799442 1 Capsule(s) PO QD 10/25/2013 04/22/2014 Inactive [AttnRPh: Savin g apply/adjudicate RxGRP:SG20 RxBIN:[id number] RxPCN:HT ID#:[id number]] fluoxetine 40 mg capsule RxNorm: 711568 1 Capsule(s) PO QD 10/26/19 14 04/22/2014 Inactive [AttnRPh: Saving apply/adjud icate RxGRP:SG20 RxBIN:[id number] RxPCN:HT ID#:[id number]] Zocor 40 mg tablet RxNorm: 251296 1 Tablet(s) PO QHS 1 TABLET(S ) PO QHS 09/13/2013 12/06/2013 Inactive metformin ER 1,000 mg tablet,extended release 24hr RxNorm: 8 50380 Tablet(s) PO TAKE 1 TABLET BY MOUTH TWICE DAILY (REPLACES 500MG DOSE) 07/26/201303/2015 Inactive diltiazem ER (XR/XT) 240 mg capsule,extended release,control led RxNorm: 483898 1 Capsule(s) PO QD 05/03/2013 10/25/2013 Inactive fluoxetine 40 mg capsule RxNorm: 467249 1 Capsule(s) PO QD 05/03/20 13 10/25/2013 Inactive Benicar HCT 40 mg-25 mg tablet RxNorm: 892405 1 Tablet(s) PO QD 01/201304/29/2014 Inactive Zocor 40 mg tablet RxNorm: 001823 1 Tablet(s) PO QHS 12/10/201209/13 Inactive fluoxetine 40 mg capsule RxNorm: 741117 1 Capsule(s) PO QD 11/10/19 13 05/03/2013 Inactive diltiazem ER (XR/XT) 240 mg capsule,extended release,control led RxNorm: 919467 1 Capsule(s) PO QD 11/09/2012 05/03/2013 Inactive Benicar HCT 40 mg-25 mg tablet RxNorm: 456904 1 Tablet(s) PO QD 05/03/2013 Inactive metformin ER 1,000 mg tablet,extended release 24hr RxNorm: 8 18327 Tablet(s) PO TAKE 1 TABLET BY MOUTH TWICE DAILY (REPLACES 500MG DOSE) 08/05/201206/2013 Inactive Zocor 40 mg tablet RxNorm: 390948 1 Tablet(s) PO QHS 06/15/201212/09 Inactive fluoxetine 40 mg capsule RxNorm: 171240 1 Capsule(s) PO QD 05/15/20 12 11/08/2012 Inactive Neurontin 600 mg Tab RxNorm: 780680 1 Tablet(s) PO QHS 12/03/2011 Inactive metformin ER 1,000 mg tablet,extended release 24hr RxNorm: 8 22856 1 Tablet(s) PO BID replaces 500mg dose 12/03/2011 07/26/2013 Inactive Zocor 40 mg tablet RxNorm: 846351 1 Tablet(s) PO QHS 12/03/201106/15 Inactive fluoxetine 20 mg capsule RxNorm: 363052 1 Capsule(s) PO QD 12/03/19 12 05/24/2012 Inactive diltiazem ER (XR/XT) 240 mg capsule,extended release,control led RxNorm: 649511 1 Capsule(s) PO QD 11/15/2011 11/09/2012 Inactive Benicar HCT 40 mg-25 mg tablet RxNorm: 010358 1 Tablet(s) PO QD 02/16/2012 Inactive metformin ER 500 mg 24 hr Tab RxNorm: 983279 1 Tablet(s) PO BID 12/02/2011 Inactive Zocor 40 mg Tab RxNorm: 557879 1 Tablet(s) PO QHS 05/30/2011 11/25/19 12 Inactive fluoxetine 20 mg Cap RxNorm: 838189 1 Capsule(s) PO QD 05/28/2011 Inactive Neurontin 600 mg Tab RxNorm: 791356 1 Tablet(s) PO QHS 05/28/2011 Inactive Neurontin 600 mg Tab RxNorm: 881314 1 Tablet(s) PO QHS 02/22/201106/2011 Inactive Neurontin 600 mg Tab RxNorm: 903324 1 Tablet(s) PO QHS 01/14/2011 Inactive Neurontin 300 mg Cap RxNorm: 370990 1 Capsule(s) PO QHS 01/14/2011 Inactive Neurontin 600 mg Tab RxNorm: 392263 1 Tablet(s) PO QHS 01/14/2011 Inactive Medrol (Vipul) 4 mg Tabs in a Dose Pack RxNorm: 749157 Tablet(s) PO 0 01/02/2011 08/28/2011 Inactive as directed fluoxetine 20 mg Cap RxNorm: 731783 1 Capsule(s) PO QD 12/10/201006/2011 Inactive Zocor 40 mg Tab RxNorm: 920499 1 Tablet(s) PO QHS 12/03/2010 05/29/19 12 Inactive Neurontin 300 mg Cap RxNorm: 731075 1 Capsule(s) PO QHS 12/03/2010 Inactive Septra DS 800 mg-160 mg Tab RxNorm: 524436 1 Tablet(s) PO BID 11/2912/08/2010 Inactive diltiazem ER (XR/XT) 240 mg Continuous Release Cap RxNorm: 8 58261 1 Capsule(s) PO QD 11/20/2010 11/15/2011 Inactive Neurontin 300 mg Cap RxNorm: 663271 1 Capsule(s) PO QHS 11/06/2010 Inactive Neurontin 300 mg Cap RxNorm: 077144 1 Capsule(s) PO QHS 11/06/2010 Inactive Celebrex 200 mg Cap RxNorm: 394355 1 Capsule(s) PO BID 10/24/2010 Inactive fluoxetine 20 mg Cap RxNorm: 829915 1 Capsule(s) PO QD 06/07/201003/2011 Inactive Zocor 40 mg Tab RxNorm: 244129 1 Tablet(s) PO QHS 06/05/2010 12/02/19 11 Inactive Benicar HCT 40 mg-25 mg Tab RxNorm: 399306 1 Tablet(s) PO QD 200908/21/2011 Inactive Diltiazem 240 mg Continuous Release Cap RxNorm: 410838 1 Capsul e(s) PO QD 11/09/2009 09/02/2018 Inactive Avelox 400 mg Tab RxNorm: 096952 1 Tablet(s) PO QD 08/22/2009 010 Inactive ProAir HFA 90 mcg/actuation aerosol inhaler RxNorm: 596463 2 Puff(s) INH Q4H as needed No Start Date Active tramadol 50 mg tablet RxNorm: 531407 1-2 Tablet(s) PO TID as ne eded for pain No Start Date Active Tylenol Arthritis 650 mg Tab RxNorm: 3653631 2 Tablet(s) PO QD No Sta rt Date Active Celebrex 200 mg Cap RxNorm: 527912 1 Capsule(s) PO BID No Start Date 08/08/2015 Inactive Medrol (Vipul) 4 mg Tabs in a Dose Pack RxNorm: 134738 Tablet(s) PO N o Start Date 01/01/2011 Inactive as directed Promethazine-DM 6.25 mg-15 mg/5 mL Syrup RxNorm: 302979 1-2 Teaspoon(s) PO Q4H prn cough No Start Date 08/28/2011 Inactive Claritin 10 mg tablet RxNorm: 971127 1 Tablet(s) PO QD No Start Date 08/08/2015 Inactive [id number] Oral RxNorm: Oral No Start Da te 03/28/2019 Inactive Breo Ellipta 200 mcg-25 mcg/dose powder for inhalation RxNor m: 2096783 1 Puff(s) INH QD No Start Date 04/09/2017 Inactive metformin 500 mg Tab RxNorm: 663963 1 Tablet(s) PO QD No Start Date 0 08/17/2011 Inactive Diltiazem 240 mg Continuous Release Cap RxNorm: 754206 1 Capsul e(s) PO BID No Start Date 11/08/2009 Inactive fluoxetine 20 mg Cap RxNorm: 557648 1 Capsule(s) PO QD No Start Date 06/07/2010 Inactive Multivitamin & Mineral Formula Oral RxNorm: Oral No Start Da te 03/28/2019 Inactive Medrol (Vipul) 4 mg tablets in a dose pack RxNorm: 388312 Tablet(s) PO as directed No Start Date 05/28/2012 Inactive Fish Oil 1,000 mg Cap RxNorm: 1 Capsule(s) PO QD No Start Date 07/2018 Inactive Nexium 40 mg Cap RxNorm: 341119 1 Capsule(s) PO QD No Start Date 07/24 Inactive fluticasone 50 mcg/actuation nasal spray,suspension RxNorm: 1333478 2 Phyllis NASAL QD to each nostril No Start Date 08/03/2017 Inactive Viagra 100 mg tablet RxNorm: 950984 1 Tablet(s) PO as needed No Sta rt Date 09/17/2015 Inactive prednisone 20 mg tablet RxNorm: 305280 1 Tablet(s) PO B ID for 4 days then 1 po daily for 4 days No Start Date 11/23/2018 Inactive Benicar HCT 40 mg-25 mg Tab RxNorm: 588425 1 Tablet(s) PO QD No Sta rt [...] Date S ervice Location MICROALBUMIN URINE RANDOM 85494 MICRL MG/L 5.8 MG/L 03/2011 Unknown MICROALBUMIN URINE RANDOM 86819 XM.ALB/CRE 5.2 MG/GCR Unknown MICROALBUMIN URINE RANDOM 33336 CREAT MG/D 111 MG/DL 03/2011 Unknown MICROALBUMIN URINE RANDOM 38449 CRE/100 1.11 G/L 12/24 Unknown Procedures Procedure Codes Date FLU VACC PRSV FREE INC ANTIG 65 AND OLDER CPT-4: 30791 03/04/2019 ADMIN PNEUMOCOCCAL VACCINE CPT-4: G0009 03/04/2019 ADMIN INFLUENZA VIRUS VAC CPT-4: G0008 03/04/2019 FLU VACC PRSV FREE INC ANTIG 65 AND OLDER CPT-4: 82707 03/04/2019 PNEUMOCOCCAL VACC 23 R[facility]MON IM CPT-4: 83103 03/04/2019 THER/PROPH/DIAG INJ SC/IM CPT-4: 02693 08/11/2018 TRIAMCINOLONE ACET INJ NOS CPT-4: J3301 08/11/2018 DEXAMETHASONE SODIUM PHOS CPT-4: J1100 08/11/2018 THER/PROPH/DIAG INJ SC/IM CPT-4: 66977 07/16/2018 METHYLPREDNISOLONE INJECTION CPT-4: J2930 07/16/2018 INFLUENZA ASSAY W/OPTIC CPT-4: 83381 07/16/2018 THER/PROPH/DIAG INJ SC/IM CPT-4: 77594 07/13/2018 TRIAMCINOLONE ACET INJ NOS CPT-4: J3301 07/13/2018 THER/PROPH/DIAG INJ SC/IM CPT-4: 79477 05/04/2018 METHYLPREDNISOLONE INJECTION CPT-4: J2930 05/04/2018 FLU VACC PRSV FREE INC ANTIG 65 AND OLDER CPT-4: 89172 02/10/2018 PNEUMOCOCCAL VACC 13 [facility] IM CPT-4: 35098 02/10/2018 ADMIN INFLUENZA VIRUS VAC CPT-4: G0008 02/10/2018 ADMIN PNEUMOCOCCAL VACCINE CPT-4: G0009 02/10/2018 THER/PROPH/DIAG INJ SC/IM CPT-4: 32094 09/09/2017 TRIAMCINOLONE ACET INJ NOS CPT-4: J3301 09/09/2017 ALBUTEROL NON-COMP UNIT CPT-4: J7613 04/10/2017 AIRWAY INHALATION TREATMENT CPT-4: 58072 04/10/2017 PRESCRIP TRANSMIT VIA ERX SY CPT-4: G8553 04/10/2017 FLU VACC PRSV FREE INC ANTIG 65 AND OLDER CPT-4: 14498 03/28/2017 ADMIN INFLUENZA VIRUS VAC CPT-4: G0008 03/28/2017 PRESCRIP TRANSMIT VIA ERX SY CPT-4: G8553 08/27/2016 PRESCRIP TRANSMIT VIA ERX SY CPT-4: G8553 06/14/2016 ALBUTEROL NON-COMP UNIT CPT-4: J7613 06/13/2016 AIRWAY INHALATION TREATMENT CPT-4: 70440 06/13/2016 PRESCRIP TRANSMIT VIA ERX SY CPT-4: [...] CPT-4: G8553 11/07/2014 THER/PROPH/DIAG INJ SC/IM CPT-4: 11646 09/21/2014 METHYLPREDNISOLONE INJECTION CPT-4: J2930 09/21/2014 PRESCRIP TRANSMIT VIA ERX SY CPT-4: G8553 09/21/2014 PRESCRIP TRANSMIT VIA ERX SY CPT-4: G8553 06/10/2014 URINALYSIS NONAUTO W/O SCOPE CPT-4: 72345 06/01/2012 PRESCRIP TRANSMIT VIA ERX SY CPT-4: G8553 05/25/2012 PRESCRIP TRANSMIT VIA ERX SY CPT-4: G8553 12/03/2011 CUR TOBACCO NON-USER CPT-4: G8457 05/30/2011 PRESCRIP TRANSMIT VIA ERX SY CPT-4: G8553 05/30/2011 URINALYSIS NONAUTO W/O SCOPE CPT-4: 89986 01/01/2011 URINE CULTURE/ COLONY COUNT CPT-4: 67290 01/01/2011 CUR TOBACCO NON-USER CPT-4: G8457 01/01/2011 [...] 1: 114/68 Code: 8480-6 BMI: 43.5 Code: 68763-8 Heart Rate 1: 52 bpm Height: 6'1" [...] 1: 136/72 Code: 8480-6 BMI: 42.7 Code: 01059-3 Heart Rate 1: 60 bpm Height: 6'1" Respiratory Rate: 22 bpm SpO2: 95% Tempera ture: 37.1 (C) / 98.7 (F) Weight: 324 lbs 02/10/2018 Blood Pressure 1: 146/78 Code: 8480-6 BMI: 42.4 Code: 65020-0 Heart Rate 1: 64 bpm Height: 6'1" Respiratory Rate: 22 bpm SpO2: 95% Tempera ture: 36.5 (C) / 97.7 (F) Weight: 321 lbs 11/05/2017 Blood Pressure 1: 128/84 Code: 8480-6 BMI: 42.9 Code: 98036-7 Heart Rate 1: 52 bpm Height: 6'1" Respiratory Rate: 22 bpm SpO2: 95% Tempera ture: 36.3 (C) / 97.3 (F) Weight: 325 lbs 09/09/2017 Blood Pressure 1: 162/90 Code: 8480-6 BMI: 42.5 Code: 34905-8 Heart Rate 1: 60 bpm Height: 6'1" Respiratory Rate: 24 bpm SpO2: 95% Tempera ture: 36.4 (C) / 97.6 (F) Weight: 322 lbs 08/07/2017 Blood Pressure 1: 152/90 Code: 8480-6 BMI: 42.2 Code: 25347-0 Heart Rate 1: 60 bpm Height: 6'1" Respiratory Rate: 26 bpm SpO2: 94% Tempera ture: 36.6 (C) / 97.8 (F) Weight: 320 lbs 08/04/2017 Blood Pressure 1: 150/86 Code: 8480-6 BMI: 42.7 Code: 66147-3 Heart Rate 1: 64 bpm Height: 6'1" Respiratory Rate: 20 bpm SpO2: 94% Tempera ture: 36.3 (C) / 97.3 (F) Weight: 324 lbs 06/04/2017 Blood Pressure 1: 164/90 Code: 8480-6 Heart Rate 1: 60 bpm Respiratory Rate: 24 bpm SpO2: 94% Temperature: 36.8 (C) / 98.3 (F) 06/02/2017 Blood Pressure 1: 162/80 Code: 8480-6 BMI: 42.9 Code: 63411-2 Heart Rate 1: 66 bpm Height: 6'1" Respiratory Rate: 22 bpm SpO2: 98% Tempera ture: 36.6 (C) / 97.8 (F) Weight: 325 lbs 05/05/2017 Blood Pressure 1: 164/94 Code: 8480-6 BMI: 41.4 Code: 47967-5 Heart Rate 1: 64 bpm Height: 6'1" Respiratory Rate: 22 bpm SpO2: 95% Tempera ture: 36.4 (C) / 97.5 (F) Weight: 314 lbs 04/10/2017 Blood Pressure 1: 136/78 Code: 8480-6 BMI: 42.0 Code: 33642-7 Heart Rate 1: 76 bpm Height: 6'1" Respiratory Rate: 24 bpm SpO2: 92% Tempera ture: 35.9 (C) / 96.7 (F) Weight: 318 lbs 02/03/2017 Blood Pressure 1: 134/82 Code: 8480-6 BMI: 41.7 Code: 32156-9 Heart Rate 1: 72 bpm Height: 6'1" Respiratory Rate: 24 bpm SpO2: 95% Tempera ture: 36.1 (C) / 97.0 (F) Weight: 316 lbs 10/30/2016 Blood Pressure 1: 126/74 Code: 8480-6 BMI: 41.3 Code: 29972-2 Heart Rate 1: 68 bpm Height: 6'1" Respiratory Rate: 20 bpm Temperature: 37 .1 (C) / 98.8 (F) Weight: 313 lbs 08/30/2016 Blood Pressure 1: 146/80 Code: 8480-6 BMI: 41.7 Code: 14084-6 Heart Rate 1: 64 bpm Height: 6'1" Respiratory Rate: 24 bpm SpO2: 94% Tempera ture: 36.6 (C) / 97.8 (F) Weight: 316 lbs 08/27/2016 Blood Pressure 1: 124/78 Code: 8480-6 Heart Rate 1: 66 bpm Height: 6'2" Respiratory Rate: 18 bpm SpO2: 94% Temperature: 36.6 (C) / 97.8 (F) Weight: 07/02/2016 Blood Pressure 1: 126/78 Code: 8480-6 BMI: 41.4 Code: 56933-6 Heart Rate 1: 68 bpm Height: 6'1" Respiratory Rate: 24 bpm SpO2: 94% Tempera ture: 36.6 (C) / 97.8 (F) Weight: 314 lbs 06/14/2016 Blood Pressure 1: 146/82 Code: 8480-6 Heart Rate 1: 80 bpm Respiratory Rate: 20 bpm SpO2: 95% Temperature: 37.3 (C) / 99.2 (F) 06/13/2016 Blood Pressure 1: 146/84 Code: 8480-6 BMI: 40.5 Code: 94051-6 Heart Rate 1: 66 bpm Height: 6'1" Respiratory Rate: 28 bpm SpO2: 93% Tempera ture: 35.8 (C) / 96.4 (F) Weight: 307 lbs 05/14/2016 Blood Pressure 1: 146/90 Code: 8480-6 BMI: 41.2 Code: 10348-1 Heart Rate 1: 68 bpm Height: 6'1" Respiratory Rate: 26 bpm Temperature: 36 .8 (C) / 98.2 (F) Weight: 312 lbs 04/29/2016 Blood Pressure 1: 152/90 Code: 8480-6 BMI: 41.0 Code: 80446-3 Heart Rate 1: 68 bpm Height: 6'1" Respiratory Rate: 26 bpm SpO2: 94% Tempera ture: 36.1 (C) / 96.9 (F) Weight: 311 lbs 04/22/2016 Blood Pressure 1: 152/94 Code: 8480-6 BMI: 40.9 Code: 53157-6 Heart Rate 1: 68 bpm Height: 6'1" Respiratory Rate: 24 bpm SpO2: 94% Tempera ture: 36.2 (C) / 97.2 (F) Weight: 310 lbs 04/01/2016 Blood Pressure 1: 156/78 Code: 8480-6 BMI: 40.6 Code: 65423-4 Heart Rate 1: 84 bpm Height: 6'1" Respiratory Rate: 22 bpm SpO2: 95% Tempera ture: 37.1 (C) / 98.7 (F) Weight: 308 lbs 11/30/2015 Blood Pressure 1: 142/80 Code: 8480-6 BMI: 40.5 Code: 52254-5 Heart Rate 1: 88 bpm Height: 6'1" Respiratory Rate: 22 bpm Temperature: 36 .2 (C) / 97.2 (F) Weight: 307 lbs 08/29/2015 Blood Pressure 1: 132/70 Code: 8480-6 BMI: 40.0 Code: 90936-9 Heart Rate 1: 76 bpm Height: 6'1" Respiratory Rate: 24 bpm SpO2: 96% Tempera ture: 36.7 (C) / 98.0 (F) Weight: 303 lbs 08/14/2015 Blood Pressure 1: 126/80 Code: 8480-6 BMI: 39.4 Code: 59341-6 Heart Rate 1: 92 bpm Height: 6'1" Respiratory Rate: 24 bpm SpO2: 94% Tempera ture: 37.8 (C) / 100.0 (F) Weight: 299 lbs 08/09/2015 Blood Pressure 1: 146/82 Code: 8480-6 Heart Rate 1: 82 bpm Respiratory Rate: 22 bpm SpO2: 93% Temperature: 35.9 (C) / 96.6 (F) We ight: 310 lbs 05/22/2015 Blood Pressure 1: 156/76 Code: 8480-6 BMI: 41.0 Code: 00080-3 Heart Rate 1: 100 bpm Height: 6'1" Respiratory Rate: 22 bpm Temperature: 37 .2 (C) / 98.9 (F) Weight: 311 lbs 02/13/2015 Blood Pressure 1: 166/90 Code: 8480-6 BMI: 41.2 Code: 32090-9 Heart Rate 1: 72 bpm Height: 6'1" Respiratory Rate: 24 bpm SpO2: 93% Tempera ture: 36.9 (C) / 98.5 (F) Weight: 312 lbs 11/07/2014 Blood Pressure 1: 134/70 Code: 8480-6 BMI: 40.5 Code: 33389-4 Heart Rate 1: 76 bpm Height: 6'1" Respiratory Rate: 24 bpm Temperature: 36 .9 (C) / 98.4 (F) Weight: 307 lbs 10/04/2014 Blood Pressure 1: 144/86 Code: 8480-6 BMI: 40.1 Code: 45940-0 Heart Rate 1: 76 bpm Height: 6'1" Respiratory Rate: 28 bpm Temperature: 36 .6 (C) / 97.9 (F) Weight: 304 lbs 09/22/2014 Blood Pressure 1: 142/80 Code: 8480-6 BMI: 40.0 Code: 05192-8 Heart Rate 1: 80 bpm Height: 6'1" Respiratory Rate: 22 bpm SpO2: 96% Tempera ture: 36.6 (C) / 97.8 (F) Weight: 303 lbs 09/21/2014 Blood Pressure 1: 160/66 Code: 8480-6 BMI: 40.0 Code: 76410-4 Heart Rate 1: 90 bpm Height: 6'1" Respiratory Rate: 26 bpm SpO2: 94% Tempera ture: 35.7 (C) / 96.2 (F) Weight: 303 lbs 06/28/2014 Blood Pressure 1: 132/80 Code: 8480-6 BMI: 41.0 Code: 24655-1 Heart Rate 1: 64 bpm Height: 6' Respiratory Rate: 20 bpm Temperature: 36 .7 (C) / 98.0 (F) Weight: 302 lbs 06/10/2014 Blood Pressure 1: 152/70 Code: 8480-6 BMI: 41.1 Code: 00828-5 Heart Rate 1: 76 bpm Height: 6' Respiratory Rate: 20 bpm Temperature: 36 .6 (C) / 97.8 (F) Weight: 303 lbs 03/29/2014 Blood Pressure 1: 132/78 Code: 8480-6 BMI: 40.6 Code: 47831-4 Heart Rate 1: 84 bpm Height: 6' Respiratory Rate: 22 bpm Temperature: 37 .1 (C) / 98.8 (F) Weight: 299 lbs 11/30/2013 Blood Pressure 1: 136/84 Code: 8480-6 BMI: 39.2 Code: 04896-3 Heart Rate 1: 76 bpm Height: 6' Respiratory Rate: 20 bpm Temperature: 36 .8 (C) / 98.2 (F) Weight: 289 lbs 08/03/2013 Blood Pressure 1: 144/80 Code: 8480-6 Heart Rate 1: 86 bpm Respiratory Rate: 20 bpm Temperature: 36.6 (C) / 97.8 (F) Weight: 296 lbs 04/06/2013 Blood Pressure 1: 142/90 Code: 8480-6 BMI: 40.3 Code: 32651-6 Heart Rate 1: 88 bpm Height: 6' Respiratory Rate: 20 bpm Temperature: 36 .6 (C) / 97.8 (F) Weight: 297 lbs 12/01/2012 Blood Pressure 1: 124/78 Code: 8480-6 BMI: 38.7 Code: 10200-8 Heart Rate 1: 76 bpm Height: 6' Respiratory Rate: 20 bpm Temperature: 37 .2 (C) / 98.9 (F) Weight: 285 lbs 08/04/2012 Blood Pressure 1: 128/80 Code: 8480-6 BMI: 38.2 Code: 07662-6 Heart Rate 1: 76 bpm Height: 6' Respiratory Rate: 20 bpm Temperature: 37 .0 (C) / 98.6 (F) Weight: 282 lbs 05/29/2012 Blood Pressure 1: 138/78 Code: 8480-6 BMI: 36.6 Code: 25779-6 Heart Rate 1: 66 bpm Height: 6' Temperature: 36.7 (C) / 98.1 (F) Weight: 270 lbs 05/25/2012 Blood Pressure 1: 128/72 Code: 8480-6 BMI: 39.9 Code: 48240-9 Heart Rate 1: 74 bpm Height: 6' Temperature: 36.1 (C) / 97.0 (F) Weight: 294 lbs 04/07/2012 Blood Pressure 1: 124/76 Code: 8480-6 BMI: 39.9 Code: 31541-6 Heart Rate 1: 72 bpm Height: 6' Respiratory Rate: 20 bpm Temperature: 36 .9 (C) / 98.5 (F) Weight: 294 lbs 12/16/2011 Blood Pressure 1: 128/80 Code: 8480-6 BMI: 40.8 Code: 43078-7 Heart Rate 1: 74 bpm Height: 6' Temperature: 36.6 (C) / 97.8 (F) Weight: 301 lbs 12/03/2011 Blood Pressure 1: 132/76 Code: 8480-6 BMI: 40.8 Code: 55034-1 Heart Rate 1: 68 bpm Height: 6' Respiratory Rate: 20 bpm Temperature: 36 .8 (C) / 98.2 (F) Weight: 301 lbs 08/29/2011 Blood Pressure 1: 140/68 Code: 8480-6 BMI: 40.8 Code: 77535-6 Heart Rate 1: 80 bpm Height: 6' Respiratory Rate: 20 bpm Temperature: 36 .4 (C) / 97.6 (F) Weight: 301 lbs 05/30/2011 Blood Pressure 1: 134/82 Code: 8480-6 BMI: 41.5 Code: 46520-9 Heart Rate 1: 76 bpm Height: 6' [...] 1: 126/72 Code: 8480-6 BMI: 41.2 Code: 17895-7 Heart Rate 1: 76 bpm Height: 6' [...] 1: 152/90 Code: 8480-6 BMI: 37.7 Code: 13998-6 Heart Rate 1: 92 bpm Height: 6'1" [...] 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] Diagnosis: Tinea corporis[ICD10: B35.4] Neela HYMAN [employer] [facility] CPT-4: 64308 12/09/2018 ([id number]) OFFICE/OUTPATIENT VISIT EST Diagnosis: COUGH[ICD10: R05] Diagnosis: Chronic obstructive pulmonary disease, unspecified[ICD10: J44.9] Diagnosis: Other disorders of lung[ICD10: J98.4] Diagnosis: Other nonspecific abnormal finding of lung field[ICD10: R91.8] Neela HYMAN [employer] [facility] CPT-4: 26292 11/24/2018 ([id number]) OFFICE/OUTPATIENT VISIT EST Diagnosis: Pneumonia, unspecified organism[ICD10: J18.9] Amita HYMAN [employer] [facility] CPT-4: 86520 09/16/2018 ([id number]) OFFICE/OUTPATIENT VISIT EST Diagnosis: Pneumonia, unspecified organism[ICD10: J18.9] Neela HYMAN [employer] [facility] CPT-4: 14620 09/03/2018 ([id number]) OFFICE/OUTPATIENT VISIT EST Diagnosis: Personal history of pneumonia (recurrent)[ICD10: Z87.01] Diagnosis: Cough[ICD10: R05] Diagnosis: Essential (primary) hypertension[ICD10: I10] Diagnosis: Type 2 diabetes mellitus with hyperglycemia[ICD10: E11.65] Amita HYMAN [employer] [facility] CPT-4: 82110 08/27/2018 OFFICE/OUTPATIENT VISIT EST Diagnosis: Pneumonia, unspecified organism[ICD10: J18.9] Diagnosis: Chronic obstructive pulmonary disease with (acute) exacerbation[ICD10: J44.1] Diagnosis: Other specified symptoms and signs involving the circulatory and respiratory systems[ICD10: R09.89] Diagnosis: Essential (primary) hypertension[ICD10: I10] Amita HYMAN [employer] [facility] CPT-4: 62543 08/13/2018 OFFICE/OUTPATIENT VISIT EST Diagnosis: Pneumonia, unspecified organism[ICD10: J18.9] Diagnosis: Other specified symptoms and signs involving the circulatory and respiratory systems[ICD10: R09.89] Amita HYMAN [employer] [facility] CPT-4: 27770 08/11/2018 ([id number]) OFFICE/OUTPATIENT VISIT EST Diagnosis: Dyspnea, unspecified[ICD10: R06.00] Diagnosis: Chronic obstructive pulmonary disease with (acute) exacerbation[ICD10: J44.1] Diagnosis: Pneumonia, unspecified organism[ICD10: J18.9] Amita HYMAN [employer] [facility] CPT-4: 35777 07/16/2018 ([id number]) OFFICE/OUTPATIENT VISIT EST Diagnosis: Acute bronchitis due to other specified organisms[ICD10: J20.8] Diagnosis: Cough[ICD10: R05] Amita VALENTINEPaperlinksHAO [employer] [facility] T-4: 73283 07/13/2018 ([id number]) OFFICE/OUTPATIENT VISIT EST Diagnosis: Essential (primary) hypertension[ICD10: I10] Diagnosis: Chronic obstructive pulmonary disease, unspecified[ICD10: J44.9] Diagnosis: Type 2 diabetes mellitus with hyperglycemia[ICD10: E11.65] Diagnosis: Mixed hyperlipidemia[ICD10: E78.2] Neela STERLING [facility] CPT-4: 67358 06/03/2018 ([id number]) OFFICE/OUTPATIENT VISIT EST Diagnosis: Chronic obstructive pulmonary disease, unspecified[ICD10: J44.9] Gely Harp NEELA Octavio Widemile [facility] CPT-4: 06015 05/04/2018 ([id number]) OFFICE/OUTPATIENT VISIT EST Diagnosis: Essential (primary) hypertension[ICD10: I10] Diagnosis: Localized edema[ICD10: R60.0] Neela MURILLO [employer] [facility] CPT-4: 67698 03/03/2018 ([id number]) OFFICE/OUTPATIENT VISIT EST Diagnosis: Localized edema[ICD10: R60.0] Neela HYMAN [employer] [facility] CPT-4: 71880 02/17/2018 ([id number]) OFFICE/OUTPATIENT VISIT EST Diagnosis: FLU VACCINE[ICD10: Z23] Diagnosis: PNEUMOCOCCAL VACCINE[ICD10: Z23] Diagnosis: Type 2 diabetes mellitus without complications[ICD10: E11.9] Diagnosis: Mixed hyperlipidemia[ICD10: E78.2] Diagnosis: Essential (primary) hypertension[ICD10: I10] Diagnosis: Localized edema[ICD10: R60.0] Diagnosis: Chronic obstructive pulmonary disease, unspecified[ICD10: J44.9] Neela HYMAN [employer] [facility] CPT-4: 50113 02/10/2018 ([id number]) OFFICE/OUTPATIENT VISIT EST Diagnosis: Type 2 diabetes mellitus with hyperglycemia[ICD10: E11.65] Diagnosis: Mixed hyperlipidemia[ICD10: E78.2] Diagnosis: Essential (primary) hypertension[ICD10: I10] Diagnosis: Chronic obstructive pulmonary disease, unspecified[ICD10: J44.9] Diagnosis: Cutaneous abscess of back [any part, except buttock][ICD10: L02.212] Neela MIRZALINE Octavio HYMAN [employer] [facility] CPT-4: 67353 11/05/2017 ([id number]) OFFICE/OUTPATIENT VISIT EST Diagnosis: Allergic urticaria[ICD10: L50.0] Gely HYMAN [employer] [facility] CPT-4: 96161 09/09/2017 ([id number]) OFFICE/OUTPATIENT VISIT EST Diagnosis: Generalized enlarged lymph nodes[ICD10: R59.1] Diagnosis: Acute gastritis without bleeding[ICD10: K29.00] Gely HYMAN [employer] [facility] CPT-4: 47511 08/07/2017 ([id number]) OFFICE/OUTPATIENT VISIT EST Diagnosis: Type 2 diabetes mellitus without complications[ICD10: E11.9] Diagnosis: Mixed hyperlipidemia[ICD10: E78.2] Diagnosis: Essential (primary) hypertension[ICD10: I10] Neeladano Hyman NEELA Octavio HYMAN [employer] [facility] CPT-4: 49944 08/04/2017 ([id number]) OFFICE/OUTPATIENT VISIT EST Diagnosis: Zoster without complications[ICD10: B02.9] Diagnosis: Acute sialoadenitis[ICD10: K11.21] Gely HYMAN [employer] [facility] CPT-4: 55196 06/04/2017 OFFICE/OUTPATIENT VISIT EST Diagnosis: Zoster without complications[ICD10: B02.9] Diagnosis: Acute sialoadenitis[ICD10: K11.21] Gely HYMAN [employer] [facility] CPT-4: 46917 06/02/2017 ([id number]) OFFICE/OUTPATIENT VISIT EST Diagnosis: Type 2 diabetes mellitus without complications[ICD10: E11.9] Diagnosis: Mixed hyperlipidemia[ICD10: E78.2] Diagnosis: Essential (primary) hypertension[ICD10: I10] Diagnosis: Chronic obstructive pulmonary disease, unspecified[ICD10: J44.9] Neela ZHANG [employer] [facility] CPT-4: 54319 05/05/2017 OFFICE/OUTPATIENT VISIT EST Diagnosis: Chronic obstructive pulmonary disease with acute lower respiratory infection[ICD10: J44.0] Diagnosis: Impacted cerumen, bilateral[ICD10: H61.23] Gely ZHANG [employer] [facility] CPT-4: 42446 04/10/2017 ([id number]) OFFICE/OUTPATIENT VISIT EST Diagnosis: FLU VACCINE[ICD10: Z23] Neela ZHANG [employer] [facility] CPT-4: 22754 03/28/2017 ([id number]) OFFICE/OUTPATIENT VISIT EST Diagnosis: Type 2 diabetes mellitus without complications[ICD10: E11.9] Diagnosis: Mixed hyperlipidemia[ICD10: E78.2] Diagnosis: Essential (primary) hypertension[ICD10: I10] Diagnosis: Chronic obstructive pulmonary disease, unspecified[ICD10: J44.9] Neela ZHANG [employer] [facility] CPT-4: 06720 02/03/2017 ([id number]) OFFICE/OUTPATIENT VISIT EST Diagnosis: Type 2 diabetes mellitus with hyperglycemia[ICD10: E11.65] Diagnosis: Mixed hyperlipidemia[ICD10: E78.2] Diagnosis: Essential (primary) hypertension[ICD10: I10] Diagnosis: Chronic obstructive pulmonary disease, unspecified[ICD10: J44.9] Neela HYMAN DO [facility] CPT-4: 79941 10/30/2016 ([id number]) NO CHARGE Diagnosis: Acute bronchitis, unspecified[ICD10: J20.9] Sammi HYMAN DO [facility] CPT-4: 84412 08/30/2016 ([id number]) OFFICE/OUTPATIENT VISIT EST Diagnosis: Acute bronchitis, unspecified[ICD10: J20.9] Diagnosis: Other seasonal allergic rhinitis[ICD10: J30.2] Sammi HYMAN DO [facility] CPT-4: 54335 08/27/2016 ([id number]) OFFICE/OUTPATIENT VISIT EST Diagnosis: Type 2 diabetes mellitus without complications[ICD10: E11.9] Diagnosis: Mixed hyperlipidemia[ICD10: E78.2] Diagnosis: Essential (primary) hypertension[ICD10: I10] Neela HYMAN DO [facility] CPT-4: 81679 07/02/2016 ([id number]) OFFICE/OUTPATIENT VISIT EST Diagnosis: Acute bronchitis, unspecified[ICD10: J20.9] Sammi HYMAN [employer] [facility] CPT-4: 32340 06/14/2016 ([id number]) OFFICE/OUTPATIENT VISIT EST Diagnosis: Acute bronchitis, unspecified[ICD10: J20.9] Sammi HYMAN DO [facility] CPT-4: 88815 06/13/2016 ([id number]) OFFICE/OUTPATIENT VISIT EST Diagnosis: Essential (primary) hypertension[ICD10: I10] Neela HYMAN DO [facility] CPT-4: 83143 05/14/2016 ([id number]) OFFICE/OUTPATIENT VISIT EST Diagnosis: Essential (primary) hypertension[ICD10: I10] Neela HYMAN DO [facility] CPT-4: 29958 04/29/2016 ([id number]) OFFICE/OUTPATIENT VISIT EST Diagnosis: Unspecified abdominal pain[ICD10: R10.9] Diagnosis: Left lower quadrant pain[ICD10: R10.32] Diagnosis: Left upper quadrant pain[ICD10: R10.12] Diagnosis: Essential (primary) hypertension[ICD10: I10] Neela HYMAN DO [facility] CPT-4: 08445 04/22/2016 ([id number]) OFFICE/OUTPATIENT VISIT EST Diagnosis: Type 2 diabetes mellitus without complications[ICD10: E11.9] Diagnosis: Mixed hyperlipidemia[ICD10: E78.2] Diagnosis: Essential (primary) hypertension[ICD10: I10] Neela HYMAN DO [facility] CPT-4: 36106 04/01/2016 ([id number]) OFFICE/OUTPATIENT VISIT EST Diagnosis: Type 2 diabetes mellitus with hyperglycemia[ICD10: E11.65] Diagnosis: Mixed hyperlipidemia[ICD10: E78.2] Diagnosis: Essential (primary) hypertension[ICD10: I10] Neela HYMAN DO [facility] CPT-4: 09196 11/30/2015 ([id number]) OFFICE/OUTPATIENT VISIT EST Diagnosis: Type 2 diabetes mellitus with diabetic neuropathy, unspecified[ICD10: E11.40] Diagnosis: Essential (primary) hypertension[ICD10: I10] Diagnosis: Mixed hyperlipidemia[ICD10: E78.2] Neela HYMAN [employer] [facility] CPT-4: 35784 08/29/2015 ([id number]) OFFICE/OUTPATIENT VISIT EST Diagnosis: COUGH[ICD10: R05] Diagnosis: Wheezing[ICD10: R06.2] Diagnosis: Type 2 diabetes mellitus with diabetic neuropathy, unspecified[ICD10: E11.40] Neela HYMAN DO [facility] CPT-4: 48115 08/14/2015 ([id number]) OFFICE/OUTPATIENT VISIT EST Diagnosis: Other seasonal allergic rhinitis[ICD10: J30.2] Diagnosis: Dyspnea, unspecified[ICD10: R06.00] Diagnosis: Wheezing[ICD10: R06.2] Sammi Reinaldo HYMAN DO [facility] CPT-4: 08262 08/09/2015 ([id number]) OFFICE/OUTPATIENT VISIT EST Diagnosis: Essential (primary) hypertension[ICD10: I10] Diagnosis: Type 2 diabetes mellitus with hyperglycemia[ICD10: E11.65] Diagnosis: Mixed hyperlipidemia[ICD10: E78.2] Neela STERLING SMendez HYMAN [facility] CPT-4: 70796 05/22/2015 ([id number]) OFFICE/OUTPATIENT VISIT EST Diagnosis: DM W/O COMPLICATION TYPE II[ICD9: 250.00] Diagnosis: - I - HYPERTENSION[ICD9: 401.9] Diagnosis: - I - HYPERLIPIDEMIA NEC/NOS[ICD9: 272.4] Diagnosis: Left hand paresthesia[ICD9: 782.0] Neela STERLING SMendez HYMAN [facility] CPT-4: 71155 02/13/2015 ([id number]) OFFICE/OUTPATIENT VISIT EST Diagnosis: HYPERLIPIDEMIA NEC/NOS[ICD9: 272.4] Diagnosis: DM W/O COMPLICATION TYPE II[ICD9: 250.00] Neela HYMAN [facility] CPT-4: 25158 11/07/2014 ([id number]) OFFICE/OUTPATIENT VISIT EST Diagnosis: ALLERGIC RHINITIS[ICD9: 477.9] Diagnosis: WHEEZING[ICD9: 786.07] Neela Duarte [facility] CPT-4: 55471 10/04/2014 ([id number]) OFFICE/OUTPATIENT VISIT EST Diagnosis: BRONCHITIS, ACUTE[ICD9: 466.0] Diagnosis: WHEEZING[ICD9: 786.07] Loren BADILLO R [facility] CPT-4: 70108 09/22/2014 ([id number]) OFFICE/OUTPATIENT VISIT EST Diagnosis: DYSPNEA[ICD9: 786.09] Diagnosis: WHEEZING[ICD9: 786.07] Diagnosis: Arrhythmia[ICD9: 427.9] Loren VALENTINEND ER [facility] CPT-4: 22651 09/21/2014 ([id number]) OFFICE/OUTPATIENT VISIT EST Diagnosis: DM W/O COMPLICATION TYPE II, 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] Diagnosis: - I - HYPERLIPIDEMIA NEC/NOS[ICD9: 272.4] Diagnosis: - I - HYPERTENSION[ICD9: 401.9] Neela HYMAN [facility] CPT-4: 13814 06/28/2014 OFFICE/OUTPATIENT VISIT EST Diagnosis: SINUSITIS, ACUTE[ICD9: 461.9] Diagnosis: OTITIS MEDIA NOS[ICD9: 382.9] Sarah RubiJong [facility] CPT-4: 97924 06/10/2014 ([id number]) OFFICE/OUTPATIENT VISIT EST Diagnosis: DM W/O COMPLICATION TYPE II[ICD9: 250.00] Diagnosis: - I - HYPERLIPIDEMIA NEC/NOS[ICD9: 272.4] Diagnosis: - I - HYPERTENSION[ICD9: 401.9] [facility]: 47709 03/29/2014 ([id number]) OFFICE/OUTPATIENT VISIT EST Diagnosis: DM W/O COMPLICATION TYPE II[ICD9: 250.00] Diagnosis: - I - HYPERTENSION[ICD9: 401.9] Diagnosis: - I - HYPERLIPIDEMIA NEC/NOS[ICD9: 272.4] Diagnosis: Hand lesion[ICD9: 709.9] Neela Sergemelany MURILLO JulissaMendez [facility] CPT-4: 64076 11/30/2013 ([id number]) OFFICE/OUTPATIENT VISIT EST Diagnosis: DM W/O COMPLICATION TYPE II[ICD9: 250.00] Diagnosis: HYPERLIPIDEMIA NEC/NOS[ICD9: 272.4] Diagnosis: HYPERTENSION[ICD9: 401.9] Neela Sergeushahao MIRZANEELA JulissaMendez [facility] CPT-4: 22486 08/03/2013 ([id number]) OFFICE/OUTPATIENT VISIT EST Diagnosis: DM W/O COMPLICATION TYPE II, 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] Diagnosis: HYPERTENSION[ICD9: 401.9] Diagnosis: HYPERLIPIDEMIA NEC/NOS[ICD9: 272.4] Neela GREGORIO [facility]issaMendez [facility] CPT-4: 76275 04/06/2013 ([id number]) OFFICE/OUTPATIENT VISIT EST Diagnosis: DM W/O COMPLICATION TYPE II[ICD9: 250.00] Diagnosis: HYPERLIPIDEMIA NEC/NOS[ICD9: 272.4] Diagnosis: HYPERTENSION[ICD9: 401.9] Neela Sergemelany MURILLO JulissaMendez [facility] CPT-4: 99970 12/01/2012 ([id number]) OFFICE/OUTPATIENT VISIT EST Diagnosis: DM W/O COMPLICATION TYPE II[ICD9: 250.00] Diagnosis: HYPERTENSION[ICD9: 401.9] Diagnosis: HYPERLIPIDEMIA NEC/NOS[ICD9: 272.4] Neela GREGORIO JulissaMendez [facility] CPT-4: 73838 08/04/2012 ([id number]) OFFICE/OUTPATIENT VISIT EST Diagnosis: URINARY FREQUENCY[ICD9: 788.41] Neela Cunningham [facility] CPT-4: 39551 06/01/2012 OFFICE/OUTPATIENT VISIT EST Diagnosis: Agitation[ICD9: 307.9] Diagnosis: Frequent urination[ICD9: 788.41] Janet Cunningham [facility] CPT-4: 33622 05/29/2012 OFFICE/OUTPATIENT VISIT EST Diagnosis: SINUSITIS, ACUTE[ICD9: 461.9] Diagnosis: OTALGIA[ICD9: 388.70] Neela Cunningham [facility] CPT-4: 62742 05/25/2012 OFFICE/OUTPATIENT VISIT EST Diagnosis: DM W/O COMPLICATION TYPE II, 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] Diagnosis: HYPERTENSION[ICD9: 401.9] Diagnosis: HYPERLIPIDEMIA NEC/NOS[ICD9: 272.4] Neela GREGORIO JulissaMendez [facility] CPT-4: 60965 04/07/2012 OFFICE/OUTPATIENT VISIT EST Diagnosis: FINGER INJURY[ICD9: 959.5] Janet Cunningham [facility] CPT-4: 24989 12/16/2011 ([id number]) OFFICE/OUTPATIENT VISIT EST Diagnosis: DM W/O COMPLICATION TYPE II, 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] Diagnosis: HYPERTENSION[ICD9: 401.9] Diagnosis: HYPERLIPIDEMIA NEC/NOS[ICD9: 272.4] Neela Cunningham [facility] CPT-4: 31606 12/03/2011 ([id number]) OFFICE/OUTPATIENT VISIT EST Diagnosis: DM W/O COMPLICATION TYPE II[ICD9: 250.00] Diagnosis: HYPERLIPIDEMIA NEC/NOS[ICD9: 272.4] Diagnosis: HYPERTENSION[ICD9: 401.9] Neela Cunningham [facility] CPT-4: 49251 08/29/2011 OFFICE/OUTPATIENT VISIT EST Diagnosis: DM W/O COMPLICATION TYPE II[ICD9: 250.00] Diagnosis: HYPERLIPIDEMIA NEC/NOS[ICD9: 272.4] Diagnosis: HYPERTENSION[ICD9: 401.9] Neela VALENTINE NDER [facility] CPT-4: 24565 05/30/2011 OFFICE/OUTPATIENT VISIT EST Diagnosis: SKIN SENSATION DISTURB[ICD9: 782.0] Neela GREGORIO S. [facility] CPT-4: 16151 01/29/2011 OFFICE/OUTPATIENT VISIT EST Diagnosis: SKIN SENSATION DISTURB[ICD9: 782.0] Neela GREGORIO S. [facility] CPT-4: 60954 01/14/2011 OFFICE/OUTPATIENT VISIT EST Neela VALENTINE [facility] CPT- 4: 22926 01/01/2011 OFFICE/OUTPATIENT VISIT EST Neela MURILLO SMendez [facility] CPT- 4: 25222 11/29/2010 ([id number]) OFFICE/OUTPATIENT VISIT EST Neela QURESHI AUNG [facility] CPT-4: 88082 08/28/2010 ([id number]) OFFICE/OUTPATIENT VISIT, EST Neela WILDE S. [facility] CPT-4: 48133 06/05/2010 ([id number]) OFFICE/OUTPATIENT VISIT, EST Neela Sergeushahao WILDE S. [facility] CPT-4: 87250 02/05/2010 ([id number]) OFFICE/OUTPATIENT VISIT, EST Neela Yenni W[facility]DE [facility] CPT-4: 92165 10/09/2009 ([id number]) OFFICE/OUTPATIENT VISIT, EST Neela Oreushahao SETH CHANI S. [facility]END[facility] CPT-4: 78894 08/22/2009 Plan of Care Planned Activity Notes Codes Status Date Visit Diagnosis Plan: Advanced chronic obstructive pul monary disease Discussion: Continue oxygen and pulmonary rehab Follow Up: 3 months ICD-9 : 496 ICD-10 : J44.9 05/10/2019 Visit Diagnosis Plan: Lymphoma involving lung Discussi on: Doing weekly lab and chemo ICD-9 : 202.82 ICD-10 : C85.99 05/10/2019 Appointment: Neela Hyman WPtel: [address] [place], [place] [phone] he called 04/14/19-- he was at physical [...] : E87.6 03/29/2019 Appointment: Neela Hyman WPtel: [address] [place] [address] Hospital Follow Up 03/29/2019 Appointment: Neela Hmyan WPtel: [address] [place], [place] [phone] [place] INJECTION 03/04/2019 Visit Diagnosis Plan: Chronic obstructiv e pulmonary disease with (acute) exacerbation Discussion: Increase SVNS with duoneb to QID Prednisone taper ICD-9 : 491.21 ICD-10 : J44.1 01/05/2019 Visit Diagnosis Plan: Other nonspecific abnormal findi ng of lung field Discussion: Referral to pulmonology--will likely need bronchoscopy--path results discussed ICD-9 : 786.6 ICD-10 : R91.8 01/05/2019 Appointment: Neela Hyman WPtel: [address] [place], [place] [phone] FOLLOW UP 01/05/2019 Patient Education: prednisone- Optimize[employer] Coupon [id number] https://www.[employer].com/samplemd/resources/getResource/61/q1bu6608-225d-9q93-jc Completed 01/05/2019 Care Plan: Referral Order SNOMED-CT : 30 0629091 Pending 01/05/2019 Appointment: Neela Hyman WPtel: [address] [place], [place] [phone] [place] CANCELED 12/21/2018 Visit Diagnosis Plan: Tinea corporis Discussion: Diflu can--hold simvastatin and fenofibrate while taking ICD-9 : 110.5 ICD-10 : B35.4 12/09/2018 Visit Diagnosis Plan: Solitary pulmonary nodule Discus esmer: CT guided needle biopsy of RUL lung mass ICD-9 : 793.11 ICD-10 : R91.1 12/09/2018 Appointment: Neela Hyman WPtel: [address] [place] [address] [place] FOLLOW UP 12/09/2018 Appointment: Gely Harp [address] [place] [address] [place] NO SHOW 12/01/2018 Visit Diagnosis Plan: [...] : J44.9 11/24/2018 Appointment: Neela Hyman WPtel: [address] [place], [place] [phone] [place] FOLLOW UP 11/24/2018 Care Plan: PET IMAGE FULL BODY LOINC : 4 2711-2 Pending 11/24/2018 Appointment: Neela Hyman WPtel: [address] [place], [place] [phone] [place] Consult 09/21/2018 Visit Diagnosis Plan: Pneumonia, unspecified organism Discussion: Patient clinically improved. Recent CT scan from 09/07 showed unresolved right upper lobe pneumonia. Finished another 7 days of levaquin. Will repeat CBC early next week. Order sent with patient to get done at [facility] [place]. FU CT recommended in 4 weeks. Patient states understanding. ICD-9 : 486 ICD-10 : J18.9 09/16/2018 Appointment: Amita Henderson [facility] [employer] [id number] FOLLOW UP 09/16/2018 Visit Diagnosis Plan: Pneumonia, unspecified organism Discussion: Clinically patient feels and looks much better but need CT scan of chest due to ongoing round pneumonia in association with his known lymphoma ICD-9 : 486 ICD-10 : J18.9 09/03/2018 Appointment: Neela Hyman WPtel: [address] [facility] FOLLOW UP 09/03/2018 Care Plan: CT [...] before upcoming appt. with doctor. Fasting labs- [facility] [place] Order sent with patient- CBC, CMP, TSH, Lipid, A1C ICD-9 : 250.02 ICD-10 : E11.65 08/27/2018 Visit Diagnosis Plan: Personal history of pneumonia (r ecurrent) Discussion: Much improved since last visit. Completed course of antibiotics. Seeing doctor next week for well visit. May consider repeat CXR at that appt. Patient states understanding. ICD-9 : V12.61 ICD-10 : Z87.01 08/27/2018 Appointment: Amita Henderson [facility] [employer] [id number] FOLLOW UP 08/27/2018 Visit Diagnosis Plan: Other [...] ICD-10 : I10 08/13/2018 Appointment: Amita Henderson [facility] [employer] [id number] [facility] FOLLOW UP 08/13/2018 Appointment: Amita Henderson [facility] [employer] [id number] CANCELED 08/13/2018 Patient Education: prednisone- OptimizeRX Coupon [phone] https://www.[employer]/sampleSurIDx/resources/getResource/61/cy21qh6r-2o17-4sh9-2b Completed 08/13/2018 Visit Diagnosis Plan: Other specified [...] ICD-10 : J18.9 08/11/2018 Appointment: Amita Henderson [address] [place], [place] [id number] ACUTE ILLNESS 08/11/2018 Care Plan: CHEST X-RAY 2VW FRONTAL&LATL LOINC : 06350-5 Pending 07/20/2018 Visit Diagnosis Plan: Dyspnea, unspecified Discussion: CXR- to be completed at the hospital. Will call with results and any adjustments in plan. Solumedrol 125 administered in clinic Prednisone 20 mg BID x 5 days- start tomorrow ICD-9 : 786.09 ICD-10 : R06.00 07/16/2018 Appointment: Amita Henderson [address] [place], [place] [id number] ACUTE ILLNESS 07/16/2018 Patient Education: prednisone- Opt[employer] Coupon [phone] https://www.[employer]/samplemd/resources/getResource/61/76s0a6md-vi50-5cd5-e6 Completed 07/16/2018 Visit Diagnosis Plan: Acute bronchitis due to other sp ecified organisms Discussion: Kenalog 40 mg IM administered in clinic. Doxycycline called into [facility]. Take as directed. Continue nebulizer and Trelegy. Follow up if symptoms are not improving with treatment regimen. Patient states understanding of all instruction. ICD-9 : 466.0 ICD-10 : J20.8 07/13/2018 Appointment: Amita Henderson [address] [place], [place] [id number] ACUTE ILLNESS 07/13/2018 Patient Education: doxycycline hyclate- OptimizeRX Cou saritha [id number] https://www.[employer]/samplemd/resources/getResource/61/7n231h90-6z6r-9501-0s Completed 07/13/2018 Care Plan: [place] : [address]-7 Pending 07/13/2018 Care Plan: CBC Pending 07/13/2018 Care Plan: A1C HPLC LOINC : 48407-1 Pending 07/13/2018 Visit Diagnosis Plan: Mixed hyperlipidemia [...] : I10 06/03/2018 Appointment: Neela Hyman WPtel: [address] [place] [address] [place] FOLLOW UP 06/03/2018 Visit Diagnosis Plan: [...] ICD-10 : J44.9 05/04/2018 Appointment: Gely Harp [address] [place] [address] ACUTE ILLNESS 05/04/2018 Visit Diagnosis Plan: Localized edema Discussion: Cont inue lasix and potassium at every other day Recheck lab and fwup in 3mos Follow Up: 3 months ICD-9 : 782.3 ICD-10 : R60.0 03/03/2018 Appointment: Neela Hyman WPtel: [address] [place] [address] [place] FOLLOW UP 03/03/2018 Patient Education: Patient Medication Summary Completed 03/03/2018 Visit Diagnosis Plan: Localized edema Discussion: Finch ge lasix and potassium to every other day Check Chem 7 in 2 weeks and fwup ICD-9 : 782.3 ICD-10 : R60.0 02/17/2018 Appointment: Neela Hyman WPtel: [address] [place] [address] FOLLOW UP 02/17/2018 Patient Education: Patient Medication [...] R60.0 02/10/2018 Appointment: Neela Hyman WPtel: [address] [facility] [place] FOLLOW UP 02/10/2018 Patient Education: [...] L02.212 11/05/2017 Appointment: Neela Hyman WPtel: [address] [facility] [place] FOLLOW UP 11/05/2017 Patient Education: Patient Medication Summary Completed 11/05/2017 Patient Education: Patient Medication Summary Completed 11/03/2017 Care Plan: [place] : [address]-6 Pending 11/03/2017 Care Plan: LIPID PANEL LOINC : 03436-5 Pending 11/03/2017 Care Plan: CBC Pending 11/03/2017 Care Plan: A1C HPLC LOINC : 72117-3 Pending 11/03/2017 Visit Diagnosis Plan: Allergic urticaria [...] ICD-10 : L50.0 09/09/2017 Appointment: Gely Harp [address] [place], [place] [address] ACUTE ILLNESS 09/09/2017 Patient Education: Patient Medication [...] ICD-10 : R59.1 08/07/2017 Appointment: Gely Harp [facility] [facility] Follow Up 08/07/2017 Patient Education: Patient Medication Summary Completed 08/07/2017 Visit Diagnosis Plan: Type 2 diabetes mellitus without complications Discussion: Accuchecks daily Lab discussed Continue current meds ICD-9 : 250.00 ICD-10 : E11.9 08/04/2017 Visit Diagnosis Plan: Essential (primary) hypertension Discussion: Increase Cardizem CD to 360mg daily ICD-9 : 401.9 ICD-10 : I10 08/04/2017 Appointment: Neela Hyman WPtel: [phone] [id number] FOLLOW UP 08/04/2017 Patient Education: Patient Medication Summary Completed 08/04/2017 Patient Education: Patient Medication Summary Completed 07/31/2017 Care Plan: [place] : [address]-7 Pending 07/31/2017 Care Plan: ASSAY THYROID STIM HORMONE Pen ding 07/31/2017 Care Plan: LIPID PANEL LOINC : 65951-7 Pending 07/31/2017 Care Plan: CBC Pending 07/31/2017 Care Plan: A1C HPLC LOINC : 09907-2 Pending 07/31/2017 Patient Education: Patient Medication Summary Completed 06/19/2017 Patient Education: Patient Medication Summary Completed 06/09/2017 Care Plan: CT SOFT TISSUE [place] : [address]-7 Pending 06/09/2017 Visit Diagnosis Plan: Acute sialoadenitis [...] ICD-10 : B02.9 06/04/2017 Appointment: Gely Harp [address] [place], [place] [address] ACUTE ILLNESS 06/04/2017 Patient Education: Patient Medication [...] : B02.9 06/02/2017 Appointment: Gely Harp [address] [facility] ACUTE ILLNESS 06/02/2017 Patient Education: Patient Medication [...] E11.9 05/05/2017 Appointment: Neela Hyman WPtel: [phone] [facility] FOLLOW UP 05/05/2017 Patient Education: Patient Medication Summary Completed 05/05/2017 Patient Education: Patient Medication Summary Completed 05/01/2017 Care Plan: A1C HPLC [facility] : 37506-7 Pending 05/01/2017 Visit Diagnosis Plan: Chronic obstructiv [...] : H61.23 04/10/2017 [facility] ACUTE ILLNESS 04/10/2017 Patient Education: Patient Medication Summary Completed 04/10/2017 Appointment: Neela Hyman WPtel: [address] [place], [place] [phone] INJECTION 03/28/2017 Patient Education: Patient Medication Summary [...] : J44.9 02/03/2017 Appointment: Neela Hyman WPtel: [address] [place], [place] [address] FOLLOW UP 02/03/2017 Patient Education: Patient Medication Summary Completed 02/03/2017 Patient Education: Patient Medication Summary Completed 01/30/2017 Care Plan: [place] : [address]-0 Pending 01/30/2017 Care Plan: LIPID PANEL LOINC : 23429-6 Pending 01/30/2017 Care Plan: CBC Pending 01/30/2017 Care Plan: A1C HPLC LOINC : 29855-6 Pending 01/30/2017 Care Plan: ASSAY OF PSA [...] E11.65 10/30/2016 [facility]: [facility]el[phone] [facility] [facility] 10/29 lm ~sl 10/30 confirmed~sl FOLLOW UP 11/2016 Patient Education: Patient Medication Summary Completed 10/30/2016 Patient Education: Patient Medication Summary Completed 10/24/2016 Visit Diagnosis Plan: Acute bronchitis, unspecified Di scussion: Patient sounds and looks much improved Continue current regimen Keep appt with Dr Levi for Friday Follow up PRN ICD-9 : 466.0 ICD-10 : J20.9 08/30/2016 Appointment: Sammi Najera [facility] [place] 08/29 rang and rang rang 08/30 [...] Najera [facility] FOLLOW UP 08/27/2016 Patient Education: Patient Medication Summary Completed 08/27/2016 Care Plan: Referral Order SNOMED-CT : 30 8183178 Pending 08/27/2016 Visit Diagnosis Plan: Type 2 [...] I10 07/02/2016 Appointment: Neela [facility]yman [facility]Ptel[facility] [phone] [facility] 07/01 rang and rang`sl FOLLOW UP 7 Patient Education: Patient Medication Summary Completed 07/02/2016 Patient Education: Patient Medication Summary Completed 06/27/2016 Care Plan: LIPID PANEL LOINC : 76604-8 Pending 06/27/2016 Care Plan: COMPREH[place] : 01172-0 Pending 06/27/2016 Care Plan: A1C HPLC LOINC : 12440-7 Pending 06/27/2016 Visit Diagnosis Plan: Acute bronchitis, [...] ICD-10 : J20.9 06/14/2016 Appointment: Sammi Najera [address] [place], [place] [address] FOLLOW UP 06/14/2016 Patient Education: Patient Medication [...] ICD-10 : J20.9 06/13/2016 Appointment: Sammi Najera [address] [place], [place] [address] ACUTE ILLNESS 06/13/2016 Patient Education: Patient Medication Summary Completed 06/13/2016 Care Plan: CHEST X-RAY 2VW FRONTAL&LATL LOINC : 48281-8 Pending 06/13/2016 Visit Plan: Increase metoprolol to 100mg po BID BP readings and BP check in 1month 05/14/2016 Appointment: Neela Hyman WPtel: [facility] 05/13 rang and rang`sl FOLLOW UP 6 Patient Education: Patient Medication Summary Completed 05/14/2016 Visit Plan: Increase metoprolol to 50mg BID BP check in 1 week f/u BP appt 2 weeks consider musculoskeletal if pain returns 04/29/2016 Appointment: Neela Hyman WPtel: [address] [place], [place] [phone] 04/25 confimred~sl FOLLOW UP 04/29/2016 Patient Education: Patient Medication Summary Completed 04/29/2016 Visit Plan: Stat CT scan of abdomen/pelv is to look for stone Hydrate and use tramadol prn Increase metoprolol to 25mg po BID Will see urology pending CT scan results 04/22/2016 Appointment: Neela Hyman WPtel: [address] [place] [address] 04/17 confirmed-sp ACUTE ILLNESS 04/22/2016 Patient Education: [...] flu shot 04/01/2016 Appointment: Neela Hyman WPtel: [address] [place], [place] [phone] FOLLOW UP 04/01/2016 Patient Education: Patient Medication Summary Completed 04/01/2016 Patient Education: [facility] - Saving AutoInj - 18-64 - Dynamic Heber l ID Completed 04/01/2016 Patient Education: Patient Medication Summary Completed 03/28/2016 Care Plan: A1C HPLC LOINC : 28599-1 Pending 03/28/2016 Care Plan: [place] : 224[address]-6 Pending 03/28/2016 Visit Plan: Lab discussed Continue curre nt meds Accuchecks daily 11/30/2015 Appointment: Neela Hyman WPtel: [address] [place] [address] 11/28 confirmed~sl FOLLOW UP 11/30/2015 Patient Education: Patient Medication Summary Completed 11/30/2015 Appointment: Neela Hyman WPtel: [address] [place] [address] RESCHEDULED 11/28/2015 Patient Education: Patient Medication Summary Completed 11/23/2015 Care Plan: COMPREH[place] : 911[address]-5 Pending 11/23/2015 Care Plan: LIPID PANEL LOINC : 52450-7 Pending 11/23/2015 Care Plan: CBC Pending 11/23/2015 Care Plan: A1C HPLC LOINC : 70307-7 Pending 11/23/2015 Visit Plan: Lab discussed Accuchecks richard ly Continue current meds Cymbalta helping with feet and mood 08/29/2015 Appointment: Neela Hyman WPtel: [address] [place], [place] [phone] FOLLOW UP 08/29/2015 Patient Education: Patient Medication Summary Completed 08/29/2015 Visit Plan: Check CXR Stop all steroids and steroid inhalers Use SVN with but change to duoneb Add singulair for allergy etiology Change fluoxetine to cymbalta 60mg daily Viagra samples given to try prn--warned of no nitrates 08/14/2015 Appointment: Neela Hyman WPtel: [address] [place], [place] [phone] lm to reschedule ~sl 07/27 lm ~sl 08/09 busy 08/10 fer rosales-riley Annual Well Visit 08/14/2015 Patient Education: Patient Medication Summary Completed 08/14/2015 Care Plan: CHEST X-RAY 2VW FRONTAL&LATL LOINC : 35705-8 Ordered 08/14/2015 Visit Plan: Decadron 8mg given [...] as expected 08/09/2015 Appointment: Reinaldo Sammi [address] [facility] ER Follow UP 08/09/2015 Patient Education: Patient Medication Summary Completed 08/09/2015 [facility] Education: [facility] S[facility] AutoInj - 18-64 [...] with it 05/22/2015 Appointment: Neela Hyman WPtel: [address] [place], [place] [phone] 05/17 confirmed~sl FOLLOW UP 05/22/2015 Patient Education: Patient Medication Summary Completed 05/22/2015 Patient Education: Patient Medication Summary Completed 05/15/2015 Visit Plan: Obtain EMGs done at [place] from when fractured left arm Lab discussed Accuchecks daily 02/13/2015 Appointment: eNela Hyman WPtel: [address] [place], [place] [phone] 02/10 confrimed FOLLOW UP 02/13/2015 Patient Education: Patient Medication Summary Completed 02/13/2015 Patient Education: Patient Medication Summary Completed 02/09/2015 Visit Plan: discussed lab add fenofibrat e 134mg po daily recheck fasting lab in 3 months, CBC, CMP, Lipids, hgb AIC 11/07/2014 Appointment: Neela Hyman WPtel: [address] [place], [place] [phone] 11/04 appt confirmed cn FOLLOW UP 015 Patient Education: Patient Medication Summary Completed 11/07/2014 Patient Education: Patient Medication Summary Completed 11/03/2014 Visit Plan: Continue loratadine 10mg richard ly Notify if symptoms return 10/04/2014 Appointment: Neela Hyman WPtel: [address] [place] [address] confirmed on 10/03 at 2:42pm FOLLOW UP 09/23 Patient Education: Patient Medication Summary Completed 10/04/2014 Appointment: Neela Hyman WPtel: [address] [place] [address] ACUTE ILLNESS 09/28/2014 Appointment: Loren Garza WPtel: [address] [place] [address] FOLLOW UP 09/22/2014 Patient Education: Patient Medication Summary Completed 09/22/2014 Appointment: Loren Garza WPtel: [address] [place] [address] ACUTE ILLNESS 09/21/2014 Patient Education: Patient Medication Summary Completed 09/21/2014 Patient Education: [facility] - Saving AutoInj - 18+ - Dynamic Portal ID Completed 09/21/2014 Visit Plan: Lab discussed Continue daily accuchecks Continue current meds 06/28/2014 Appointment: Neela Hyman WPtel: [address] [place] [address] FOLLOW UP 06/28/2014 Patient Education: Patient Medication Summary Completed 06/28/2014 Patient Education: Patient Medication Summary Completed 06/23/2014 Appointment: Sarah Sunshine WPtel: [address] [place] [address] ACUTE ILLNESS 06/10/2014 Patient Education: Patient Medication Summary Completed 06/10/2014 Patient Education: [facility] - Saving AutoInj - 18+ - Dynamic Portal ID Completed 06/10/2014 Visit Plan: Lab discussed Continue daily accuchecks Continue current meds 03/29/2014 Appointment: Neela Hyman WPtel: [address] [place] [address] FOLLOW UP 03/29/2014 Patient Education: Patient Medication Summary Completed 03/29/2014 Patient Education: Patient Medication Summary Completed 03/23/2014 Visit Plan: Lab discussed Continue curre nt meds and accuchecks See surgery for removal of hand lesion 11/30/2013 Appointment: Neela Hyman WPtel: [address] [place] [address] 11/29 no answer FOLLOW UP 11/30/2013 Patient Education: Patient Medication Summary Completed 11/30/2013 Visit Plan: Lab discussed Continue curre nt meds 08/03/2013 Appointment: Neela Hyman WPtel: [address] [place] [address] FOLLOW UP 08/03/2013 Patient Education: Patient Medication Summary Completed 08/03/2013 Visit Plan: Lab Discussed Will continue current meds and pt will get back on diet/exercise Check lab in 4mos and fwup 04/06/2013 Appointment: Neela Hyman WPtel: [address] [place] [address] FOLLOW UP 04/06/2013 Patient Education: Patient Medication Summary Completed 04/06/2013 Visit Plan: Lab discussed Continue daily accuchecks 12/01/2012 Appointment: Neela Hyman WPtel: [address] [place] [address] 11/30 no answer FOLLOW UP 12/01/2012 Patient Education: Patient Medication Summary Completed 12/01/2012 Visit Plan: Continue current meds and da russell accuchecks Lab discussed 08/04/2012 Appointment: Neela Hyman WPtel: [address] [place] [address] FOLLOW UP 08/04/2012 Patient Education: Patient Medication Summary Completed 08/04/2012 Appointment: Neela Hyman WPtel: [address] [place], [place] [phone] [facility] 06/01/2012 Patient Education: Patient Medication Summary Completed 06/01/2012 Appointment: Janet Jean Baptiste WPtel: [address] [place], [place] [phone] FOLLOW UP 05/29/2012 Patient Education: Patient Medication Summary Completed 05/29/2012 Visit Plan: pt states Dr. Hyman told h is to increase his Prozac dose while she was talking to her at [facility]. Discussed that pt. should not increase or decrease dosage without Dr's knowledge. Pt. will seek hearing test here in town at the hearing aid place on [address]. Discussed that ear pain is likely caused by sinus pressure. Pt. will notify if no improvement. 05/25/2012 Appointment: Janet Jean Baptiste WPtel: [address] [place] [address] ACUTE ILLNESS 05/25/2012 Patient Education: Patient Medication Summary Completed 05/25/2012 Visit Plan: Continue current meds Contin ue daily accuchecks but alternate times Increase fish oil to 3gm daily 04/07/2012 Appointment: Neela Hyman WPtel: [address] [place], [place] [phone] 04/06 FOLLOW UP 04/07/2012 Patient Education: Patient Medication Summary Completed 04/07/2012 Appointment: Janet Jean Baptiste WPtel: [address] [place] [address] ACUTE ILLNESS 12/16/2011 Patient Education: Patient Medication Summary Completed 12/16/2011 Visit Plan: Increase 12/03/2011 Appointment: Neela Hyman WPtel: [address] [place], [place] [phone] [place] FOLLOW UP 12/03/2011 Patient Education: Patient Medication Summary Completed 12/03/2011 Visit Plan: Continue current meds Contin ue accuchecks 08/29/2011 Appointment: Neela Hyman WPtel: [address] [place], [place] [phone] [place] FOLLOW UP 08/29/2011 Patient Education: Patient Medication Summary Completed 08/29/2011 Visit Plan: Continue current meds except restart zocor 05/30/2011 Appointment: Neela Hymantel: [address] [place], [place] [phone] [place] FOLLOW UP 05/30/2011 Patient Education: Patient Medication Summary Completed 05/30/2011 Visit Plan: Continue tennis elbow strap May go back to weight-lifing--light weigts every other day 01/29/2011 Appointment: Neela Hyman WPtel: [address] [place], [place] [phone] [place] FOLLOW UP 01/29/2011 Patient Education: Patient Medication Summary Completed 01/29/2011 Visit Plan: Continue tennis elbow strap and anti-inflammatories 01/14/2011 Appointment: Neela Hyman WPtel: [address] [place] [address] FOLLOW UP 01/14/2011 Appointment: Janet Jean Baptiste WPtel: [address] [place] [address] NEW PATIENT 01/14/2011 Patient Education: Patient Medication Summary Completed 01/14/2011 Appointment: Neela Hyman WPtel: [address] [place] [address] FOLLOW UP 01/08/2011 Appointment: Neela Hyman WPtel: [address] [place] [address] FOLLOW UP 01/01/2011 Appointment: Neela Hyman WPtel: [address] [place], [place] [id number] UA 01/01/2011 Patient Education: Patient Medication Summary [...] given. 11/29/2010 Appointment: Janet Jean Baptiste WPtel: [address] [place] [address] ACUTE ILLNESS 11/29/2010 Patient Education: Patient Medication Summary Completed 11/29/2010 Visit Plan: Cont current meds Check CMP, Lipids, HbA1C 08/28/2010 Appointment: Neela Hyman WPtel: [address] [place] [address] FOLLOW UP 08/28/2010 Patient Education: Patient Medication Summary Completed 08/28/2010 Visit Plan: Cont current meds and accuch ecks Add Zocor 40mg q HS Check Lipids and HbA1C in 3mos 06/05/2010 Appointment: Neela Hyman WPtel: [address] [place] [address] FOLLOW UP 06/05/2010 Patient Education: Patient Medication Summary Completed 06/05/2010 Visit Plan: Check Lipids and HbA1C 02/05/2010 Appointment: Neela Hyman WPtel: [address] [place] [address] FOLLOW UP 02/05/2010 Patient Education: Patient Medication Summary Completed 02/05/2010 Visit Plan: HbA1C in 3mos. Continue Accu checks BID alternating times. Check HbA1C, CMP, Lipids 10/09/2009 Appointment: Neela Hyman WPtel: [address] [place] [address] FOLLOW UP 10/09/2009 Patient Education: Patient Medication Summary Completed 10/09/2009 Visit Plan: Saline nasal flushes prn. Ty lenol/Motrin prn headache. Notify if persists/symptoms worsening. 08/22/2009 Appointment: Neela Hyman WPtel: [address] [place] [address] ACUTE ILLNESS 08/22/2009 Patient Education: Patient Medication Summary Completed 08/22/2009 Referral: Aubrey Rand WPtel: [address] [place], [place] [id number] [place] Office will verfy his insurance then they will contact patient Completed Referral: Shahbaz Brennan WPtel: [address] [facility] [address] [id number] [place] Referral Completed Referral: Ion Levi [address] [place] [id number] [place] Referral Appointment Requested Referral: Ion Levi [address] [facility] [place] [id number] [place] Referral Appointment Requested Instructions Comment . [...] with it . Obtain EMGs done at [place] from when fractured left arm Lab discussed [...] while she was talking to her at [facility]. Discussed that pt. should not increase or decrease dosage without Dr's knowledge. Pt. will seek hearing test here in town at the hearing aid place on [address]. Discussed that ear pain is likely caused [...]
--- OUTSIDE RECORDS SUMMARY | 2019-12-09 09:24 | XMS REPORT | CCD ---
Author Author Michael Hyman D.O. Organization [facility] Address [address] [place] [address] Phone Care Team Providers Care X Ray Service Technician Name Role Phone Neela Hyman D.O., PP Unavailable CCM Unavailable Summary Purpose Interface Exchange Insurance Providers Payer name Policy type / Coverage type Covered green party ID Effective Begin Date Effective End Date ABS FOR [employer] Commercial Insurance [id number] Unknown Family History Family History data not found Social History Social History Element Codes Description Effective Dates Marital status Unknown 05/30/[address]: 2961059 Former smoker quit 25 years ago 01/01/2011 [...] 400 mg (241.3 mg magnesium) tablet RxNorm: 869038 1 Table t(s) Oral QD 04/26/2019 06/24/2019 Active Lasix 40 mg tablet RxNorm: 666111 40 MG PO DAILY 04/12/2019 No Stop Da te Active Benicar 40 mg tablet RxNorm: 496794 1 Tablet(s) Oral QD 03/29/2019 Active potassium chloride ER 20 mEq tablet,extended release RxNorm: 365508 1 Tablet(s) Oral two times a day 03/29/2019 06/27/2019 Active metformin 500 mg tablet RxNorm: 752027 2 Tablet(s) Oral two afshan es a day 03/29/2019 No Stop Date Active potassium chloride ER 20 mEq tablet,extended release RxNorm: 267183 1 Tablet(s) Oral QD 03/29/2019 03/28/2019 Inactive Benicar 40 mg tablet RxNorm: 315303 1 Tablet(s) Oral QD 03/29/2019 Inactive MagOx 400 mg (241.3 mg magnesium) tablet RxNorm: 668072 1 Table t(s) Oral QD 03/29/2019 04/25/2019 Inactive fenofibrate micronized 134 mg capsule RxNorm: 542387 TA KE ONE CAPSULE BY MOUTH EVERY DAY 03/05/2019 08/31/2019 Active duloxetine 60 mg capsule,delayed release RxNorm: 382294 1 Capsu le(s) PO QD 01/28/2019 07/26/2019 Active Trelegy Ellipta 100 mcg-62.5 mcg-25 mcg powder for inhalatio n RxNorm: 8667967 1 Puff(s) INH QD 01/06/2019 12/31/2019 Active 90 day supply prednisone 20 mg tablet RxNorm: 471935 1 Tablet(s) PO T ID for 3 days then 1 po BID for 3 days then 1 po daily for 3 days 01/05/2019 03/28/2019 Inacti ve metformin ER 1,000 mg tablet,extended release 24hr RxNorm: 1 609989 TAKE TWO TABLETS (1000MG) BY MOUTH TWO TIMES A DAY 12/22/2018 03/28/2019 Inacti ve Diflucan 100 mg tablet RxNorm: 721079 1 Tablet(s) PO QD 12/09/2018 Inactive albuterol sulfate 2.5 mg/3 mL (0.083 %) solution for n ebulization RxNorm: 218814 3 Milliliter(s) INH ONE VIAL VIA NEBULIZER EVERY 4 HOURS 019 07/21/2019 Active [AttnRPh: Saving apply/adjudicate RxGRP: SG20 RxBIN:[id number] RxPCN: ID#:[id number]] prednisone 20 mg tablet RxNorm: 997763 1 Tablet(s) PO B ID for 4 days then 1 po daily for 4 days 11/24/2018 01/04/2019 Inactive Trelegy Ellipta 100 mcg-62.5 mcg-25 mcg powder for inhalatio n RxNorm: 5154449 1 Puff(s) INH QD 10/27/2018 01/06/2019 Inactive 90 day supply diltiazem ER 360 mg capsule,24 hr,extended release RxNorm: 8 33277 TAKE ONE CAPSULE BY MOUTH AT BEDTIME -REPLACES 300MG 10/13/2018 04/10/2019 Inactive metoprolol succinate ER 100 mg tablet,extended release 24 hr RxNorm: 821544 TAKE ONE TABLET BY MOUTH TWICE A DAY 10/13/2018 07/09/2019 Active Trelegy Ellipta 100 mcg-62.5 mcg-25 mcg powder for inhalatio n RxNorm: 4740425 INHALE ONE PUFF ONCE DAILY 09/07/2018 10/27/2018 Inactive Levaquin 750 mg tablet RxNorm: 381720 1 Tablet(s) PO QD 09/07/2018 Inactive Levaquin 750 mg tablet RxNorm: 661358 1 Tablet(s) PO QD 09/07/2018 Inactive prednisone 20 mg tablet RxNorm: 533315 2 Tablet(s) PO QAM 08/13/2018 08/19/2018 Inactive Levaquin 500 mg tablet RxNorm: 762053 1 Tablet(s) PO QD 08/11/2018 Inactive fenofibrate micronized 134 mg capsule RxNorm: 097229 TA KE ONE CAPSULE BY MOUTH EVERY DAY 08/10/2018 02/05/2019 Inactive prednisone 20 mg tablet RxNorm: 281818 1 Tablet(s) PO BID 07/16/2018 07/20/2018 Inactive doxycycline hyclate 100 mg capsule RxNorm: 8379628 1 Capsule(s) PO BID 07/13/2018 07/22/2018 Inactive duloxetine 60 mg capsule,delayed release RxNorm: 573538 TAKE ONE CAPSULE BY MOUTH ONCE A DAY 07/08/2018 01/28/2019 Inactive Lasix 40 mg tablet RxNorm: 777902 1 TABLET(S) PO QAM 06/08/201809/05 Inactive potassium chloride ER 20 mEq tablet,extended release(p art/cryst) RxNorm: 6835675 1 TABLET(S) PO QD 06/08/2018 09/05/2018 Inactive metformin ER 1,000 mg tablet,extended release 24hr RxNorm: 1 952959 TAKE TWO TABLETS (1000MG) BY MOUTH TWO TIMES A DAY 06/01/2018 11/27/2018 Inacti ve Zocor 40 mg tablet RxNorm: 853375 TAKE ONE TABLET BY M OUTH EVERY NIGHT AT BEDTIME 05/11/2018 08/03/2019 Active Benicar HCT 40 mg-25 mg tablet RxNorm: 397938 TAKE ONE TABLET BY MOUTH ONCE DAILY 05/11/2018 03/28/2019 Inactive Trelegy Ellipta 100 mcg-62.5 mcg-25 mcg powder for inhalatio n RxNorm: 4986650 1 PUFF(S) INH QD 04/06/2018 07/04/2018 Inactive diltiazem ER 360 mg capsule,24 hr,extended release RxNorm: 8 59082 1 Capsule(s) PO QHS replaces 300mg dose 03/30/2018 09/25/2018 Inactive Trelegy Ellipta 100 mcg-62.5 mcg-25 mcg powder for inhalatio n RxNorm: 8221730 1 Puff(s) INH QD 02/24/2018 02/23/2018 Inactive Trelegy Ellipta 100 mcg-62.5 mcg-25 mcg powder for inhalatio n RxNorm: 4670495 1 Puff(s) INH QD 02/24/2018 02/23/2018 Inactive Trelegy Ellipta 100 mcg-62.5 mcg-25 mcg powder for inhalatio n RxNorm: 9683561 1 Puff(s) INH QD 02/24/2018 04/05/2018 Inactive Lasix 40 mg tablet RxNorm: 857450 1 Tablet(s) PO QAM 02/10/201803/11 Inactive potassium chloride ER 20 mEq tablet,extended release(p art/cryst) RxNorm: 3431467 1 Tablet(s) PO QD 02/10/2018 03/11/2018 Inactive fenofibrate micronized 134 mg capsule RxNorm: 538113 1 Capsule( s) PO QD 01/30/2018 07/28/2018 Inactive metoprolol succinate ER 100 mg tablet,extended release 24 hr RxNorm: 185946 TAKE ONE TABLET BY MOUTH TWICE A DAY 12/30/2017 09/25/2018 Inactive metformin ER 1,000 mg tablet,extended release 24hr RxNorm: 1 744833 1 Tablet(s) PO BID 11/17/2017 05/15/2018 Inactive [SAVINGS FOR NON -COVERED DRUGS -- BIN:751205, PCN: ASPROD1, Group: XXXXX, ID# [id number], Questions: . THIS IS NOT INSURANCE.] Benicar HCT 40 mg-25 mg tablet RxNorm: 247583 1 Tablet(s) PO QD 05/10/2018 Inactive [SAVINGS FOR NON-COVERED JESU GS -- BIN:226220, PCN: ASPROD1, Group: XXXXX, ID# [id number], Questions: . THIS IS NOT INSURANCE.] Bactroban 2 % topical cream RxNorm: 484748 Application TOP BID 10/2409/02/2018 Inactive clindamycin HCl 300 mg capsule RxNorm: 589273 2 Capsule(s) PO TID 0 11/05/2017 11/18/2017 Inactive duloxetine 60 mg capsule,delayed release RxNorm: 188677 Capsule(s) TAKE ONE CAPSULE BY MOUTH ONCE DAILY 09/24/2017 09/23/2017 Inactive triamcinolone acetonide 0.1 % topical ointment RxNorm: 4626550 1 TOP BID 09/09/2017 11/04/2017 Inactive Bactrim DS 800 mg-160 mg tablet RxNorm: 433240 1 Tablet(s) PO BID 0 08/07/2017 08/13/2017 Inactive metronidazole 500 mg tablet RxNorm: 693798 1 Tablet(s) PO BID 08/0708/13/2017 Inactive diltiazem ER 360 mg capsule,24 hr,extended release RxNorm: 8 60182 1 Capsule(s) PO QHS replaces 300mg dose 08/04/2017 01/30/2018 Inactive fenofibrate micronized 134 mg capsule RxNorm: 179425 1 Capsule( s) PO QD 07/21/2017 01/30/2018 Inactive Zocor 40 mg tablet RxNorm: 353482 1 Tablet(s) PO QHS 07/21/201705/10 Inactive GB duloxetine 60 mg capsule,delayed release RxNorm: 843196 Capsule(s) TAKE ONE CAPSULE BY MOUTH ONCE DAILY 06/24/2017 09/24/2017 Inactive Cleocin HCl 300 mg capsule RxNorm: 916751 2 Capsule(s) PO BID 06/0206/08/2017 Inactive acyclovir 800 mg tablet RxNorm: 509971 1 Tablet(s) PO 5x day 201706/08/2017 Inactive diltiazem ER 300 mg capsule,24 hr,extended release RxNorm: 8 68918 1 Capsule(s) PO QHS replaces 240mg dose 05/05/2017 08/03/2017 Inactive ipratropium-albuterol 0.5 mg-3 mg(2.5 mg base)/3 mL ne bulization soln RxNorm: 6155024 1 Unit Dose INH Q4H as needed 05/05/2017 01/04/2019 Inactive metformin ER 1,000 mg tablet,extended release 24hr RxNorm: 1 024574 1 Tablet(s) PO BID 04/28/2017 11/17/2017 Inactive [SAVINGS FOR NON -COVERED DRUGS -- BIN:225143, PCN: ASPROD1, Group: XXXXX, ID# [id number], Questions: . THIS IS NOT INSURANCE.] diltiazem ER (XR/XT) 240 mg capsule,extended release 2 4 hr, controlled RxNorm: 793536 TAKE ONE CAPSULE BY MOUTH EVERY DAY 04/15/2017 05/04/2017 Inact avani prednisone 20 mg tablet RxNorm: 830017 1 Tablet(s) PO QD 04/10/2017 1 06/14/2016 Inactive Breo Ellipta 200 mcg-25 mcg/dose powder for inhalation RxNor m: 8602425 1 Puff(s) INH QD 04/10/2017 02/09/2018 Inactive Breo Ellipta 200 mcg-25 mcg/dose powder for inhalation RxNor m: 9712567 1 Puff(s) INH QD 04/10/2017 04/09/2017 Inactive Levaquin 500 mg tablet RxNorm: 376776 1 Tablet(s) PO QD 04/10/2017 Inactive metoprolol succinate ER 100 mg tablet,extended release 24 hr RxNorm: 918330 TAKE ONE TABLET BY MOUTH TWICE A DAY 03/24/2017 12/18/2017 Inactive fenofibrate micronized 134 mg capsule RxNorm: 555591 1 Capsule( s) PO QD 01/16/2017 07/21/2017 Inactive Benicar HCT 40 mg-25 mg tablet RxNorm: 235613 1 Tablet(s) PO QD 11/17/2017 Inactive [SAVINGS FOR NON-COVERED JESU GS -- BIN:348229, PCN: ASPROD1, Group: XXXXX, ID# [id number], Questions: . THIS IS NOT INSURANCE.] metoprolol succinate ER 100 mg tablet,extended release 24 hr RxNorm: 444206 1 Tablet(s) PO BID 10/16/2016 03/23/2017 Inactive diltiazem ER (XR/XT) 240 mg capsule,extended release 2 4 hr, controlled RxNorm: 949553 1 Capsule(s) PO QD 10/16/2016 04/13/2017 Inactive [SAVINGS FOR NON- COVERED DRUGS -- BIN:273619, PCN: ASPROD1, Group: XXXXX, ID# [id number], Questions: . THIS IS NOT INSURANCE.] metformin ER 1,000 mg tablet,extended release 24hr RxNorm: 8 20610 1 Tablet(s) PO BID 10/16/2016 04/28/2017 Inactive [SAVINGS FOR NON -COVERED DRUGS -- BIN:737531, PCN: ASPROD1, Group: XXXXX, ID# [id number], Questions: . THIS IS NOT INSURANCE.] Zocor 40 mg tablet RxNorm: 693762 1 Tablet(s) PO QHS 10/16/201607/21 Inactive GB Singulair 10 mg tablet RxNorm: 424101 Tablet(s) 1 TABLET(S) PO QHS 08/27/2016 09/02/2018 Inactive prednisone 20 mg tablet RxNorm: 731849 1 Tablet(s) PO QD 08/27/2016 0 08/31/2016 Inactive ipratropium-albuterol 0.5 mg-3 mg(2.5 mg base)/3 mL ne bulization soln RxNorm: 6185670 1 Unit Dose INH Q4H as needed 08/27/2016 05/04/2017 Inactive metoprolol succinate ER 100 mg tablet,extended release 24 hr RxNorm: 295968 TAKE ONE TABLET BY MOUTH TWICE A DAY 08/05/2016 10/16/2016 Inactive duloxetine 60 mg capsule,delayed release RxNorm: 975758 TAKE ONE CAPSULE BY MOUTH ONCE DAILY 08/05/2016 06/24/2017 Inactive prednisone 20 mg tablet RxNorm: 087446 1 Tablet(s) PO QD 06/14/2016 0 06/18/2016 Inactive ipratropium-albuterol 0.5 mg-3 mg(2.5 mg base)/3 mL ne bulization soln RxNorm: 0050238 1 Unit Dose INH Q4H as needed 06/13/2016 08/26/2016 Inactive Levaquin 500 mg tablet RxNorm: 222201 1 Tablet(s) PO QD 06/13/2016 Inactive metoprolol succinate ER 100 mg tablet,extended release 24 hr RxNorm: 620441 1 Tablet(s) PO BID replaces 50mg dose 05/14/2016 07/12/2016 Inactive metoprolol succinate ER 50 mg tablet,extended release 24 hr RxNorm: 443455 1 Tablet(s) PO BID 04/29/2016 05/13/2016 Inactive prednisone 20 mg tablet RxNorm: 030863 1 Tablet(s) PO BID 04/22/2016 04/21/2016 Inactive prednisone 20 mg tablet RxNorm: 613567 1 Tablet(s) PO BID 04/22/2016 04/28/2016 Inactive Singulair 10 mg tablet RxNorm: 313338 Tablet(s) 1 TABLET(S) PO QHS 04/01/2016 08/26/2016 Inactive metoprolol succinate ER 25 mg tablet,extended release 24 hr RxNorm: 594476 1 Tablet(s) PO QHS for blood pressure 04/01/2016 05/13/2016 Inactive fenofibrate micronized 134 mg capsule RxNorm: 884985 TA KE ONE CAPSULE BY MOUTH DAILY 01/25/2016 01/16/2017 Inactive duloxetine 60 mg capsule,delayed release RxNorm: 256247 TAKE ONE CAPSULE BY MOUTH ONCE DAILY 01/25/2016 08/04/2016 Inactive Zocor 40 mg tablet RxNorm: 560654 TAKE ONE TABLET BY MOUTH AT B EDTIME 11/13/2015 10/16/2016 Inactive GB metformin ER 1,000 mg tablet,extended release 24hr RxNorm: 8 02925 1 Tablet(s) PO BID 10/26/2015 10/16/2016 Inactive [SAVINGS FOR NON -COVERED DRUGS -- BIN:393332, PCN: ASPROD1, Group: XXXXX, ID# [id number], Questions: . THIS IS NOT INSURANCE.] Benicar HCT 40 mg-25 mg tablet RxNorm: 234132 1 Tablet(s) PO QD 06/201511/11/2016 Inactive [SAVINGS FOR NON-COVERED JESU GS -- BIN:746730, PCN: ASPROD1, Group: XXXXX, ID# [id number], Questions: . THIS IS NOT INSURANCE.] diltiazem ER (XR/XT) 240 mg capsule,extended release,control led RxNorm: 334824 1 Capsule(s) PO QD 10/26/2015 10/15/2016 Inactive [SAVINGS FOR NO N-COVERED DRUGS -- BIN:660298, PCN: ASPROD1, Group: XXXXX, ID# XXXXXXX, Questions: . THIS IS NOT INSURANCE.] Singulair 10 mg tablet RxNorm: 255729 1 TABLET(S) PO QHS 09/18/2015 1 05/31/2015 Inactive Viagra 100 mg tablet RxNorm: 982156 1 Tablet(s) PO as needed 201511/23/2018 Inactive Singulair 10 mg tablet RxNorm: 059015 1 Tablet(s) PO QHS 08/16/2015 0 08/15/2015 Inactive Singulair 10 mg tablet RxNorm: 373605 1 Tablet(s) PO QHS 08/16/2015 0 09/14/2015 Inactive duloxetine 60 mg capsule,delayed release RxNorm: 894016 1 Capsule(s) PO QD replaces fluoxetine 08/14/2015 01/24/2016 Inactive ipratropium-albuterol 0.5 mg-3 mg(2.5 mg base)/3 mL ne bulization soln RxNorm: 3576179 1 Unit Dose INH Q4H as needed 08/14/2015 06/12/2016 Inactive prednisone 20 mg tablet RxNorm: 064543 Take 3 tabs PO o nce daily x 3 days, then 2 tabs PO once daily x 3 days and then 1 tab PO once daily x 3 days 08/09/2015 08/13/2015 Inactive Symbicort 160 mcg-4.5 mcg/actuation HFA aerosol inhaler RxNo rm: 4927064 2 Puff(s) INH BID 08/09/2015 08/13/2015 Inactive Zocor 40 mg tablet RxNorm: 652776 1 Tablet(s) PO QHS 05/23/201511/11 Inactive [AttnRPh: Saving apply/adjudicate RxGRP: SG20 RxBIN:[id number] RxPCN: ID#:[id number]] Benicar HCT 40 mg-25 mg tablet RxNorm: 263496 1 Tablet(s) PO QD 10/26/2015 Inactive [SAVINGS FOR NON-COVERED JESU GS -- BIN:429826, PCN: ASPROD1, Group: XXXXX, ID# [id number], Questions: . THIS IS NOT INSURANCE.] diltiazem ER (XR/XT) 240 mg capsule,extended release,control led RxNorm: 957592 1 Capsule(s) PO QD 04/24/2015 10/20/2015 Inactive [SAVINGS FOR NO N-COVERED DRUGS -- BIN:931320, PCN: ASPROD1, Group: XXXXX, ID# XXXXXXX, Questions: . THIS IS NOT INSURANCE.] fluoxetine 40 mg capsule RxNorm: 610799 1 Capsule(s) PO QD 04/24/20 15 08/13/2015 Inactive [SAVINGS FOR NON-COVERED JESU GS -- BIN:311074, PCN: ASPROD1, Group: XXXXX, ID# XXXXXXX, Questions: . THIS IS NOT INSURANCE.] Zocor 40 mg tablet RxNorm: 391948 TABLET(S) 1 TABLET(S) PO QHS 01/2505/23/2015 Inactive [AttnRPh: Saving apply/adjud icate RxGRP:SG20 RxBIN:[id number] RxPCN: ID#:[id number]] metformin ER 1,000 mg tablet,extended release 24hr RxNorm: 8 32544 1 TABLET(S) PO BID 01/29/2015 10/26/2015 Inactive [SAVINGS FOR NON -COVERED DRUGS -- BIN:068853, PCN: ASPROD1, Group: XXXXX, ID# XXXXXXX, Questions: . THIS IS NOT INSURANCE.] fenofibrate micronized 134 mg capsule RxNorm: 189921 1 CAPSULE( S) PO QD 01/23/2015 01/17/2016 Inactive fenofibrate micronized 134 mg capsule RxNorm: 527798 1 Capsule( s) PO QD 11/07/2014 01/22/2015 Inactive diltiazem ER (XR/XT) 240 mg capsule,extended release,control led RxNorm: 817501 1 Capsule(s) PO QD 10/24/2014 04/24/2015 Inactive [SAVINGS FOR NO N-COVERED DRUGS -- BIN:592761, PCN: ASPROD1, Group: XXXXX, ID# XXXXXXX, Questions: . THIS IS NOT INSURANCE.] Benicar HCT 40 mg-25 mg tablet RxNorm: 041624 1 Tablet(s) PO QD 05/201404/24/2015 Inactive [SAVINGS FOR NON-COVERED JESU GS -- BIN:385391, PCN: ASPROD1, Group: XXXXX, ID# XXXXXXX, Questions: . THIS IS NOT INSURANCE.] fluoxetine 40 mg capsule RxNorm: 206890 1 Capsule(s) PO QD 10/25/19 15 04/24/2015 Inactive [SAVINGS FOR NON-COVERED JESU GS -- BIN:021915, PCN: ASPROD1, Group: XXXXX, ID# XXXXXXX, Questions: . THIS IS NOT INSURANCE.] azithromycin 500 mg tablet RxNorm: 640622 1 Tablet(s) PO QD 015 09/27/2014 Inactive [SAVINGS FOR NON-COVERED JESU GS -- BIN:144298, PCN: ASPROD1, Group: XXXXX, ID# XXXXXXX, Questions: . THIS IS NOT INSURANCE.] albuterol sulfate 2.5 mg/3 mL (0.083 %) solution for n ebulization RxNorm: 308269 3 Milliliter(s) INH ONE VIAL VIA NEBULIZER EVERY 4 HOURS 015 11/19/2014 Inactive [AttnRPh: Saving apply/adjudicate RxGRP: SG20 RxBIN:[id number] RxPCN: ID#:[id number]] Zocor 40 mg tablet RxNorm: 935473 TABLET(S) 1 TABLET(S ) PO QHS 1 TABLET(S) PO QHS 09/04/2014 02/21/2015 Inactive [AttnRPh: Saving apply/adjudicate RxGRP:SG20 RxBIN:[id number] RxPCN: ID#:[id number]] metformin ER 1,000 mg tablet,extended release 24hr RxNorm: 8 25317 1 Tablet(s) PO BID 08/04/2014 01/28/2015 Inactive [SAVINGS FOR NON -COVERED DRUGS -- BIN:219126, PCN: ASPROD1, Group: XXXXX, ID# XXXXXXX, Questions: . THIS IS NOT INSURANCE.] Bromfed DM 2 mg-30 mg-10 mg/5 mL syrup RxNorm: 8549935 1 -2 Teaspoon(s) PO Q4H as needed for cough 06/10/2014 06/19/2014 Inactive [SAVINGS FOR UN INSURED PATIENTS -- BIN:202598, PCN: ASPROD1, Group: AME08, ID# [id number], Process claim through [employer], for questions: . THIS IS NOT INSURANCE.] Augmentin 875 mg-125 mg tablet RxNorm: 966895 1 Tablet(s) PO Q12H 0 06/10/2014 06/19/2014 Inactive [AttnRPh: Saving apply/adjud icate RxGRP:SG20 RxBIN:[id number] RxPCN:HT ID#:[id number]] Zocor 40 mg tablet RxNorm: 448367 Tablet(s) 1 TABLET(S ) PO QHS 1 TABLET(S) PO QHS 05/25/2014 08/22/2014 Inactive [AttnRPh: Saving apply/adjudicate RxGRP:SG20 RxBIN:[id number] RxPCN:HT ID#:[id number]] fluoxetine 40 mg capsule RxNorm: 675691 1 Capsule(s) PO QD 04/29/20 14 10/24/2014 Inactive [AttnRPh: Saving apply/adjud icate RxGRP:SG20 RxBIN:[id number] RxPCN:HT ID#:[id number]] diltiazem ER (XR/XT) 240 mg capsule,extended release,control led RxNorm: 069682 1 Capsule(s) PO QD 04/29/2014 10/24/2014 Inactive [AttnRPh: Savin g apply/adjudicate RxGRP:SG20 RxBIN:[id number] RxPCN:HT ID#:[id number]] Benicar HCT 40 mg-25 mg tablet RxNorm: 192866 1 Tablet(s) PO QD 09/201310/24/2014 Inactive [AttnRPh: Saving apply/adjud icate RxGRP:SG20 RxBIN:[id number] RxPCN:HT ID#:[id number]] Zocor 40 mg tablet RxNorm: 876935 1 TABLET(S) PO QHS 1 TABLET(S ) PO QHS 03/07/2014 05/25/2014 Inactive [AttnRPh: Saving chelsie ly/adjudicate RxGRP:SG20 RxBIN:[id number] RxPCN:HT ID#:[id number]] Zocor 40 mg tablet RxNorm: 115453 1 Tablet(s) PO QHS 1 TABLET(S ) PO QHS 12/06/2013 03/05/2014 Inactive [AttnRPh: Saving chelsie ly/adjudicate RxGRP:SG20 RxBIN:[id number] RxPCN:HT ID#:[id number]] diltiazem ER (XR/XT) 240 mg capsule,extended release,control led RxNorm: 880101 1 Capsule(s) PO QD 10/25/2013 04/22/2014 Inactive [AttnRPh: Savin g apply/adjudicate RxGRP:SG20 RxBIN:[id number] RxPCN:HT ID#:[id number]] fluoxetine 40 mg capsule RxNorm: 779172 1 Capsule(s) PO QD 10/26/19 14 04/22/2014 Inactive [AttnRPh: Saving apply/adjud icate RxGRP:SG20 RxBIN:[id number] RxPCN:HT ID#:[id number]] Zocor 40 mg tablet RxNorm: 019271 1 Tablet(s) PO QHS 1 TABLET(S ) PO QHS 09/13/2013 12/06/2013 Inactive metformin ER 1,000 mg tablet,extended release 24hr RxNorm: 8 96406 Tablet(s) PO TAKE 1 TABLET BY MOUTH TWICE DAILY (REPLACES 500MG DOSE) 07/26/201303/2015 Inactive diltiazem ER (XR/XT) 240 mg capsule,extended release,control led RxNorm: 179724 1 Capsule(s) PO QD 05/03/2013 10/25/2013 Inactive fluoxetine 40 mg capsule RxNorm: 068220 1 Capsule(s) PO QD 05/03/20 13 10/25/2013 Inactive Benicar HCT 40 mg-25 mg tablet RxNorm: 830100 1 Tablet(s) PO QD 01/201304/29/2014 Inactive Zocor 40 mg tablet RxNorm: 561412 1 Tablet(s) PO QHS 12/10/201209/13 Inactive fluoxetine 40 mg capsule RxNorm: 554724 1 Capsule(s) PO QD 11/10/19 13 05/03/2013 Inactive diltiazem ER (XR/XT) 240 mg capsule,extended release,control led RxNorm: 902713 1 Capsule(s) PO QD 11/09/2012 05/03/2013 Inactive Benicar HCT 40 mg-25 mg tablet RxNorm: 927037 1 Tablet(s) PO QD 05/03/2013 Inactive metformin ER 1,000 mg tablet,extended release 24hr RxNorm: 8 87770 Tablet(s) PO TAKE 1 TABLET BY MOUTH TWICE DAILY (REPLACES 500MG DOSE) 08/05/201206/2013 Inactive Zocor 40 mg tablet RxNorm: 604053 1 Tablet(s) PO QHS 06/15/201212/09 Inactive fluoxetine 40 mg capsule RxNorm: 669897 1 Capsule(s) PO QD 05/15/20 12 11/08/2012 Inactive Neurontin 600 mg Tab RxNorm: 447916 1 Tablet(s) PO QHS 12/03/2011 Inactive metformin ER 1,000 mg tablet,extended release 24hr RxNorm: 8 59928 1 Tablet(s) PO BID replaces 500mg dose 12/03/2011 07/26/2013 Inactive Zocor 40 mg tablet RxNorm: 772937 1 Tablet(s) PO QHS 12/03/201106/15 Inactive fluoxetine 20 mg capsule RxNorm: 472933 1 Capsule(s) PO QD 12/03/19 12 05/24/2012 Inactive diltiazem ER (XR/XT) 240 mg capsule,extended release,control led RxNorm: 662787 1 Capsule(s) PO QD 11/15/2011 11/09/2012 Inactive Benicar HCT 40 mg-25 mg tablet RxNorm: 682164 1 Tablet(s) PO QD 02/16/2012 Inactive metformin ER 500 mg 24 hr Tab RxNorm: 158408 1 Tablet(s) PO BID 12/02/2011 Inactive Zocor 40 mg Tab RxNorm: 781749 1 Tablet(s) PO QHS 05/30/2011 11/25/19 12 Inactive fluoxetine 20 mg Cap RxNorm: 675903 1 Capsule(s) PO QD 05/28/2011 Inactive Neurontin 600 mg Tab RxNorm: 079302 1 Tablet(s) PO QHS 05/28/2011 Inactive Neurontin 600 mg Tab RxNorm: 465412 1 Tablet(s) PO QHS 02/22/201106/2011 Inactive Neurontin 600 mg Tab RxNorm: 816883 1 Tablet(s) PO QHS 01/14/2011 Inactive Neurontin 300 mg Cap RxNorm: 497660 1 Capsule(s) PO QHS 01/14/2011 Inactive Neurontin 600 mg Tab RxNorm: 680823 1 Tablet(s) PO QHS 01/14/2011 Inactive Medrol (Vipul) 4 mg Tabs in a Dose Pack RxNorm: 563663 Tablet(s) PO 0 01/02/2011 08/28/2011 Inactive as directed fluoxetine 20 mg Cap RxNorm: 309768 1 Capsule(s) PO QD 12/10/201006/2011 Inactive Zocor 40 mg Tab RxNorm: 830593 1 Tablet(s) PO QHS 12/03/2010 05/29/19 12 Inactive Neurontin 300 mg Cap RxNorm: 076944 1 Capsule(s) PO QHS 12/03/2010 Inactive Septra DS 800 mg-160 mg Tab RxNorm: 143182 1 Tablet(s) PO BID 11/2912/08/2010 Inactive diltiazem ER (XR/XT) 240 mg Continuous Release Cap RxNorm: 8 37821 1 Capsule(s) PO QD 11/20/2010 11/15/2011 Inactive Neurontin 300 mg Cap RxNorm: 662243 1 Capsule(s) PO QHS 11/06/2010 Inactive Neurontin 300 mg Cap RxNorm: 768861 1 Capsule(s) PO QHS 11/06/2010 Inactive Celebrex 200 mg Cap RxNorm: 247763 1 Capsule(s) PO BID 10/24/2010 Inactive fluoxetine 20 mg Cap RxNorm: 059739 1 Capsule(s) PO QD 06/07/201003/2011 Inactive Zocor 40 mg Tab RxNorm: 565206 1 Tablet(s) PO QHS 06/05/2010 12/02/19 11 Inactive Benicar HCT 40 mg-25 mg Tab RxNorm: 938547 1 Tablet(s) PO QD 200908/21/2011 Inactive Diltiazem 240 mg Continuous Release Cap RxNorm: 630627 1 Capsul e(s) PO QD 11/09/2009 09/02/2018 Inactive Avelox 400 mg Tab RxNorm: 376953 1 Tablet(s) PO QD 08/22/2009 010 Inactive ProAir HFA 90 mcg/actuation aerosol inhaler RxNorm: 485670 2 Puff(s) INH Q4H as needed No Start Date Active tramadol 50 mg tablet RxNorm: 960220 1-2 Tablet(s) PO TID as ne eded for pain No Start Date Active Tylenol Arthritis 650 mg Tab RxNorm: 1131543 2 Tablet(s) PO QD No Sta rt Date Active Celebrex 200 mg Cap RxNorm: 810601 1 Capsule(s) PO BID No Start Date 08/08/2015 Inactive Medrol (Vipul) 4 mg Tabs in a Dose Pack RxNorm: 334793 Tablet(s) PO N o Start Date 01/01/2011 Inactive as directed Promethazine-DM 6.25 mg-15 mg/5 mL Syrup RxNorm: 638088 1-2 Teaspoon(s) PO Q4H prn cough No Start Date 08/28/2011 Inactive Claritin 10 mg tablet RxNorm: 174044 1 Tablet(s) PO QD No Start Date 08/08/2015 Inactive [id number] Oral RxNorm: Oral No Start Da te 03/28/2019 Inactive Breo Ellipta 200 mcg-25 mcg/dose powder for inhalation RxNor m: 0009646 1 Puff(s) INH QD No Start Date 04/09/2017 Inactive metformin 500 mg Tab RxNorm: 705946 1 Tablet(s) PO QD No Start Date 0 08/17/2011 Inactive Diltiazem 240 mg Continuous Release Cap RxNorm: 724027 1 Capsul e(s) PO BID No Start Date 11/08/2009 Inactive fluoxetine 20 mg Cap RxNorm: 687046 1 Capsule(s) PO QD No Start Date 06/07/2010 Inactive Multivitamin & Mineral Formula Oral RxNorm: Oral No Start Da te 03/28/2019 Inactive Medrol (Vipul) 4 mg tablets in a dose pack RxNorm: 283427 Tablet(s) PO as directed No Start Date 05/28/2012 Inactive Fish Oil 1,000 mg Cap RxNorm: 1 Capsule(s) PO QD No Start Date 07/2018 Inactive Nexium 40 mg Cap RxNorm: 320961 1 Capsule(s) PO QD No Start Date 07/24 Inactive fluticasone 50 mcg/actuation nasal spray,suspension RxNorm: 2348867 2 [place] NASAL QD to each nostril No Start Date 08/03/2017 Inactive Viagra 100 mg tablet RxNorm: 620771 1 Tablet(s) PO as needed No Sta rt Date 09/17/2015 Inactive prednisone 20 mg tablet RxNorm: 264598 1 Tablet(s) PO B ID for 4 days then 1 po daily for 4 days No Start Date 11/23/2018 Inactive Benicar HCT 40 mg-25 mg Tab RxNorm: 974214 1 Tablet(s) PO QD No Sta rt [...] Date S ervice Location MICROALBUMIN URINE RANDOM [id number] MICRL MG/L 5.8 MG/L 03/2011 Unknown MICROALBUMIN URINE RANDOM 57643 XM.ALB/CRE 5.2 MG/GCR Unknown MICROALBUMIN URINE RANDOM 29022 CREAT MG/D 111 MG/DL 03/2011 Unknown MICROALBUMIN URINE RANDOM 44629 CRE/100 1.11 G/L 12/24 Unknown Procedures Procedure Codes Date FLU VACC PRSV FREE INC ANTIG 65 AND OLDER CPT-4: 03872 03/04/2019 ADMIN PNEUMOCOCCAL VACCINE CPT-4: G0009 03/04/2019 ADMIN INFLUENZA VIRUS VAC CPT-4: G0008 03/04/2019 FLU VACC PRSV FREE INC ANTIG 65 AND OLDER CPT-4: 36495 03/04/2019 PNEUMOCOCCAL VACC 23 RAYMON IM CPT-4: 09780 03/04/2019 THER/PROPH/DIAG INJ SC/IM CPT-4: 83381 08/11/2018 TRIAMCINOLONE ACET INJ NOS CPT-4: J3301 08/11/2018 DEXAMETHASONE SODIUM PHOS CPT-4: J1100 08/11/2018 THER/PROPH/DIAG INJ SC/IM CPT-4: 47364 07/16/2018 METHYLPREDNISOLONE INJECTION CPT-4: J2930 07/16/2018 INFLUENZA ASSAY W/OPTIC CPT-4: 22331 07/16/2018 THER/PROPH/DIAG INJ SC/IM CPT-4: 98375 07/13/2018 TRIAMCINOLONE ACET INJ NOS CPT-4: J3301 07/13/2018 THER/PROPH/DIAG INJ SC/IM CPT-4: 22694 05/04/2018 METHYLPREDNISOLONE INJECTION CPT-4: J2930 05/04/2018 FLU VACC PRSV FREE INC ANTIG 65 AND OLDER CPT-4: 36638 02/10/2018 PNEUMOCOCCAL VACC 13 RAYMON IM CPT-4: 80206 02/10/2018 ADMIN INFLUENZA VIRUS VAC CPT-4: G0008 02/10/2018 ADMIN PNEUMOCOCCAL VACCINE CPT-4: G0009 02/10/2018 THER/PROPH/DIAG INJ SC/IM CPT-4: 11074 09/09/2017 TRIAMCINOLONE ACET INJ NOS CPT-4: J3301 09/09/2017 ALBUTEROL NON-COMP UNIT CPT-4: J7613 04/10/2017 AIRWAY INHALATION TREATMENT CPT-4: 79989 04/10/2017 PRESCRIP TRANSMIT VIA ERX SY CPT-4: G8553 04/10/2017 FLU VACC PRSV FREE INC ANTIG 65 AND OLDER CPT-4: 22466 03/28/2017 ADMIN INFLUENZA VIRUS VAC CPT-4: G0008 03/28/2017 PRESCRIP TRANSMIT VIA ERX SY CPT-4: G8553 08/27/2016 PRESCRIP TRANSMIT VIA ERX SY CPT-4: G8553 06/14/2016 ALBUTEROL NON-COMP UNIT CPT-4: J7613 06/13/2016 AIRWAY INHALATION TREATMENT CPT-4: 60685 06/13/2016 PRESCRIP TRANSMIT VIA ERX SY CPT-4: [...] CPT-4: G8553 11/07/2014 THER/PROPH/DIAG INJ SC/IM CPT-4: 43457 09/21/2014 METHYLPREDNISOLONE INJECTION CPT-4: J2930 09/21/2014 PRESCRIP TRANSMIT VIA ERX SY CPT-4: G8553 09/21/2014 PRESCRIP TRANSMIT VIA ERX SY CPT-4: G8553 06/10/2014 URINALYSIS NONAUTO W/O SCOPE CPT-4: 02554 06/01/2012 PRESCRIP TRANSMIT VIA ERX SY CPT-4: G8553 05/25/2012 PRESCRIP TRANSMIT VIA ERX SY CPT-4: G8553 12/03/2011 CUR TOBACCO NON-USER CPT-4: G8457 05/30/2011 PRESCRIP TRANSMIT VIA ERX SY CPT-4: G8553 05/30/2011 URINALYSIS NONAUTO W/O SCOPE CPT-4: 62855 01/01/2011 URINE CULTURE/ COLONY COUNT CPT-4: 81382 01/01/2011 CUR TOBACCO NON-USER CPT-4: G8457 01/01/2011 [...] 1: 114/68 Code: 8480-6 BMI: 43.5 Code: 25341-9 Heart Rate 1: 52 bpm Height: 6'1" [...] 1: 136/72 Code: 8480-6 BMI: 42.7 Code: 01022-3 Heart Rate 1: 60 bpm Height: 6'1" Respiratory Rate: 22 bpm SpO2: 95% Tempera ture: 37.1 (C) / 98.7 (F) Weight: 324 lbs 02/10/2018 Blood Pressure 1: 146/78 Code: 8480-6 BMI: 42.4 Code: 96773-1 Heart Rate 1: 64 bpm Height: 6'1" Respiratory Rate: 22 bpm SpO2: 95% Tempera ture: 36.5 (C) / 97.7 (F) Weight: 321 lbs 11/05/2017 Blood Pressure 1: 128/84 Code: 8480-6 BMI: 42.9 Code: 06499-2 Heart Rate 1: 52 bpm Height: 6'1" Respiratory Rate: 22 bpm SpO2: 95% Tempera ture: 36.3 (C) / 97.3 (F) Weight: 325 lbs 09/09/2017 Blood Pressure 1: 162/90 Code: 8480-6 BMI: 42.5 Code: 94296-9 Heart Rate 1: 60 bpm Height: 6'1" Respiratory Rate: 24 bpm SpO2: 95% Tempera ture: 36.4 (C) / 97.6 (F) Weight: 322 lbs 08/07/2017 Blood Pressure 1: 152/90 Code: 8480-6 BMI: 42.2 Code: 08865-2 Heart Rate 1: 60 bpm Height: 6'1" Respiratory Rate: 26 bpm SpO2: 94% Tempera ture: 36.6 (C) / 97.8 (F) Weight: 320 lbs 08/04/2017 Blood Pressure 1: 150/86 Code: 8480-6 BMI: 42.7 Code: 15380-4 Heart Rate 1: 64 bpm Height: 6'1" Respiratory Rate: 20 bpm SpO2: 94% Tempera ture: 36.3 (C) / 97.3 (F) Weight: 324 lbs 06/04/2017 Blood Pressure 1: 164/90 Code: 8480-6 Heart Rate 1: 60 bpm Respiratory Rate: 24 bpm SpO2: 94% Temperature: 36.8 (C) / 98.3 (F) 06/02/2017 Blood Pressure 1: 162/80 Code: 8480-6 BMI: 42.9 Code: 76167-1 Heart Rate 1: 66 bpm Height: 6'1" Respiratory Rate: 22 bpm SpO2: 98% Tempera ture: 36.6 (C) / 97.8 (F) Weight: 325 lbs 05/05/2017 Blood Pressure 1: 164/94 Code: 8480-6 BMI: 41.4 Code: 68330-6 Heart Rate 1: 64 bpm Height: 6'1" Respiratory Rate: 22 bpm SpO2: 95% Tempera ture: 36.4 (C) / 97.5 (F) Weight: 314 lbs 04/10/2017 Blood Pressure 1: 136/78 Code: 8480-6 BMI: 42.0 Code: 31158-2 Heart Rate 1: 76 bpm Height: 6'1" Respiratory Rate: 24 bpm SpO2: 92% Tempera ture: 35.9 (C) / 96.7 (F) Weight: 318 lbs 02/03/2017 Blood Pressure 1: 134/82 Code: 8480-6 BMI: 41.7 Code: 38171-4 Heart Rate 1: 72 bpm Height: 6'1" Respiratory Rate: 24 bpm SpO2: 95% Tempera ture: 36.1 (C) / 97.0 (F) Weight: 316 lbs 10/30/2016 Blood Pressure 1: 126/74 Code: 8480-6 BMI: 41.3 Code: 64029-8 Heart Rate 1: 68 bpm Height: 6'1" Respiratory Rate: 20 bpm Temperature: 37 .1 (C) / 98.8 (F) Weight: 313 lbs 08/30/2016 Blood Pressure 1: 146/80 Code: 8480-6 BMI: 41.7 Code: 06048-2 Heart Rate 1: 64 bpm Height: 6'1" Respiratory Rate: 24 bpm SpO2: 94% Tempera ture: 36.6 (C) / 97.8 (F) Weight: 316 lbs 08/27/2016 Blood Pressure 1: 124/78 Code: 8480-6 Heart Rate 1: 66 bpm Height: 6'2" Respiratory Rate: 18 bpm SpO2: 94% Temperature: 36.6 (C) / 97.8 (F) Weight: 07/02/2016 Blood Pressure 1: 126/78 Code: 8480-6 BMI: 41.4 Code: 28786-4 Heart Rate 1: 68 bpm Height: 6'1" Respiratory Rate: 24 bpm SpO2: 94% Tempera ture: 36.6 (C) / 97.8 (F) Weight: 314 lbs 06/14/2016 Blood Pressure 1: 146/82 Code: 8480-6 Heart Rate 1: 80 bpm Respiratory Rate: 20 bpm SpO2: 95% Temperature: 37.3 (C) / 99.2 (F) 06/13/2016 Blood Pressure 1: 146/84 Code: 8480-6 BMI: 40.5 Code: 53398-6 Heart Rate 1: 66 bpm Height: 6'1" Respiratory Rate: 28 bpm SpO2: 93% Tempera ture: 35.8 (C) / 96.4 (F) Weight: 307 lbs 05/14/2016 Blood Pressure 1: 146/90 Code: 8480-6 BMI: 41.2 Code: 27275-0 Heart Rate 1: 68 bpm Height: 6'1" Respiratory Rate: 26 bpm Temperature: 36 .8 (C) / 98.2 (F) Weight: 312 lbs 04/29/2016 Blood Pressure 1: 152/90 Code: 8480-6 BMI: 41.0 Code: 80156-6 Heart Rate 1: 68 bpm Height: 6'1" Respiratory Rate: 26 bpm SpO2: 94% Tempera ture: 36.1 (C) / 96.9 (F) Weight: 311 lbs 04/22/2016 Blood Pressure 1: 152/94 Code: 8480-6 BMI: 40.9 Code: 79164-7 Heart Rate 1: 68 bpm Height: 6'1" Respiratory Rate: 24 bpm SpO2: 94% Tempera ture: 36.2 (C) / 97.2 (F) Weight: 310 lbs 04/01/2016 Blood Pressure 1: 156/78 Code: 8480-6 BMI: 40.6 Code: 75890-4 Heart Rate 1: 84 bpm Height: 6'1" Respiratory Rate: 22 bpm SpO2: 95% Tempera ture: 37.1 (C) / 98.7 (F) Weight: 308 lbs 11/30/2015 Blood Pressure 1: 142/80 Code: 8480-6 BMI: 40.5 Code: 71582-3 Heart Rate 1: 88 bpm Height: 6'1" Respiratory Rate: 22 bpm Temperature: 36 .2 (C) / 97.2 (F) Weight: 307 lbs 08/29/2015 Blood Pressure 1: 132/70 Code: 8480-6 BMI: 40.0 Code: 23712-7 Heart Rate 1: 76 bpm Height: 6'1" Respiratory Rate: 24 bpm SpO2: 96% Tempera ture: 36.7 (C) / 98.0 (F) Weight: 303 lbs 08/14/2015 Blood Pressure 1: 126/80 Code: 8480-6 BMI: 39.4 Code: 99991-1 Heart Rate 1: 92 bpm Height: 6'1" Respiratory Rate: 24 bpm SpO2: 94% Tempera ture: 37.8 (C) / 100.0 (F) Weight: 299 lbs 08/09/2015 Blood Pressure 1: 146/82 Code: 8480-6 Heart Rate 1: 82 bpm Respiratory Rate: 22 bpm SpO2: 93% Temperature: 35.9 (C) / 96.6 (F) We ight: 310 lbs 05/22/2015 Blood Pressure 1: 156/76 Code: 8480-6 BMI: 41.0 Code: 01385-2 Heart Rate 1: 100 bpm Height: 6'1" Respiratory Rate: 22 bpm Temperature: 37 .2 (C) / 98.9 (F) Weight: 311 lbs 02/13/2015 Blood Pressure 1: 166/90 Code: 8480-6 BMI: 41.2 Code: 95580-3 Heart Rate 1: 72 bpm Height: 6'1" Respiratory Rate: 24 bpm SpO2: 93% Tempera ture: 36.9 (C) / 98.5 (F) Weight: 312 lbs 11/07/2014 Blood Pressure 1: 134/70 Code: 8480-6 BMI: 40.5 Code: 59275-8 Heart Rate 1: 76 bpm Height: 6'1" Respiratory Rate: 24 bpm Temperature: 36 .9 (C) / 98.4 (F) Weight: 307 lbs 10/04/2014 Blood Pressure 1: 144/86 Code: 8480-6 BMI: 40.1 Code: 63980-2 Heart Rate 1: 76 bpm Height: 6'1" Respiratory Rate: 28 bpm Temperature: 36 .6 (C) / 97.9 (F) Weight: 304 lbs 09/22/2014 Blood Pressure 1: 142/80 Code: 8480-6 BMI: 40.0 Code: 28213-8 Heart Rate 1: 80 bpm Height: 6'1" Respiratory Rate: 22 bpm SpO2: 96% Tempera ture: 36.6 (C) / 97.8 (F) Weight: 303 lbs 09/21/2014 Blood Pressure 1: 160/66 Code: 8480-6 BMI: 40.0 Code: 27134-2 Heart Rate 1: 90 bpm Height: 6'1" Respiratory Rate: 26 bpm SpO2: 94% Tempera ture: 35.7 (C) / 96.2 (F) Weight: 303 lbs 06/28/2014 Blood Pressure 1: 132/80 Code: 8480-6 BMI: 41.0 Code: 64065-6 Heart Rate 1: 64 bpm Height: 6' Respiratory Rate: 20 bpm Temperature: 36 .7 (C) / 98.0 (F) Weight: 302 lbs 06/10/2014 Blood Pressure 1: 152/70 Code: 8480-6 BMI: 41.1 Code: 70113-5 Heart Rate 1: 76 bpm Height: 6' Respiratory Rate: 20 bpm Temperature: 36 .6 (C) / 97.8 (F) Weight: 303 lbs 03/29/2014 Blood Pressure 1: 132/78 Code: 8480-6 BMI: 40.6 Code: 82919-9 Heart Rate 1: 84 bpm Height: 6' Respiratory Rate: 22 bpm Temperature: 37 .1 (C) / 98.8 (F) Weight: 299 lbs 11/30/2013 Blood Pressure 1: 136/84 Code: 8480-6 BMI: 39.2 Code: 47345-3 Heart Rate 1: 76 bpm Height: 6' Respiratory Rate: 20 bpm Temperature: 36 .8 (C) / 98.2 (F) Weight: 289 lbs 08/03/2013 Blood Pressure 1: 144/80 Code: 8480-6 Heart Rate 1: 86 bpm Respiratory Rate: 20 bpm Temperature: 36.6 (C) / 97.8 (F) Weight: 296 lbs 04/06/2013 Blood Pressure 1: 142/90 Code: 8480-6 BMI: 40.3 Code: 88077-5 Heart Rate 1: 88 bpm Height: 6' Respiratory Rate: 20 bpm Temperature: 36 .6 (C) / 97.8 (F) Weight: 297 lbs 12/01/2012 Blood Pressure 1: 124/78 Code: 8480-6 BMI: 38.7 Code: 79450-6 Heart Rate 1: 76 bpm Height: 6' Respiratory Rate: 20 bpm Temperature: 37 .2 (C) / 98.9 (F) Weight: 285 lbs 08/04/2012 Blood Pressure 1: 128/80 Code: 8480-6 BMI: 38.2 Code: 36513-8 Heart Rate 1: 76 bpm Height: 6' Respiratory Rate: 20 bpm Temperature: 37 .0 (C) / 98.6 (F) Weight: 282 lbs 05/29/2012 Blood Pressure 1: 138/78 Code: 8480-6 BMI: 36.6 Code: 20119-1 Heart Rate 1: 66 bpm Height: 6' Temperature: 36.7 (C) / 98.1 (F) Weight: 270 lbs 05/25/2012 Blood Pressure 1: 128/72 Code: 8480-6 BMI: 39.9 Code: 79067-1 Heart Rate 1: 74 bpm Height: 6' Temperature: 36.1 (C) / 97.0 (F) Weight: 294 lbs 04/07/2012 Blood Pressure 1: 124/76 Code: 8480-6 BMI: 39.9 Code: 55686-2 Heart Rate 1: 72 bpm Height: 6' Respiratory Rate: 20 bpm Temperature: 36 .9 (C) / 98.5 (F) Weight: 294 lbs 12/16/2011 Blood Pressure 1: 128/80 Code: 8480-6 BMI: 40.8 Code: 59020-6 Heart Rate 1: 74 bpm Height: 6' Temperature: 36.6 (C) / 97.8 (F) Weight: 301 lbs 12/03/2011 Blood Pressure 1: 132/76 Code: 8480-6 BMI: 40.8 Code: 49812-8 Heart Rate 1: 68 bpm Height: 6' Respiratory Rate: 20 bpm Temperature: 36 .8 (C) / 98.2 (F) Weight: 301 lbs 08/29/2011 Blood Pressure 1: 140/68 Code: 8480-6 BMI: 40.8 Code: 22870-9 Heart Rate 1: 80 bpm Height: 6' Respiratory Rate: 20 bpm Temperature: 36 .4 (C) / 97.6 (F) Weight: 301 lbs 05/30/2011 Blood Pressure 1: 134/82 Code: 8480-6 BMI: 41.5 Code: 46607-2 Heart Rate 1: 76 bpm Height: 6' [...] 1: 126/72 Code: 8480-6 BMI: 41.2 Code: 04128-7 Heart Rate 1: 76 bpm Height: 6' [...] 1: 152/90 Code: 8480-6 BMI: 37.7 Code: 35958-6 Heart Rate 1: 92 bpm Height: 6'1" [...] 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] Neela QURESHI [facility] CPT-4: 53529 05/10/2019 ([id number]) OFFICE/OUTPATIENT VISIT EST Diagnosis: Chronic obstructive pulmonary disease with (acute) exacerbation[ICD10: J44.1] Diagnosis: Hypokalemia[ICD10: E87.6] 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 CPT-4: 26625 12/09/2018 ([id number]) OFFICE/OUTPATIENT VISIT EST Diagnosis: COUGH[ICD10: R05] Diagnosis: Chronic obstructive pulmonary disease, unspecified[ICD10: J44.9] Diagnosis: Other disorders of lung[ICD10: J98.4] Diagnosis: Other nonspecific abnormal finding of lung field[ICD10: R91.8] Neela HYMAN [facility] [facility] CPT-4: 22791 11/24/2018 ([id number]) OFFICE/OUTPATIENT VISIT EST Diagnosis: Pneumonia, unspecified organism[ICD10: J18.9] Amita [facility]MAN [employer] [facility] CPT-4: 39105 09/16/2018 ([id number]) OFFICE/OUTPATIENT VISIT EST Diagnosis: Pneumonia, unspecified organism[ICD10: J18.9] Neela [facility]MAN [facility] [facility] CPT-4: 89392 09/03/2018 ([id number]) OFFICE/OUTPATIENT VISIT EST Diagnosis: Personal history of pneumonia (recurrent)[ICD10: Z87.01] Diagnosis: Cough[ICD10: R05] Diagnosis: Essential (primary) hypertension[ICD10: I10] Diagnosis: Type 2 diabetes mellitus with hyperglycemia[ICD10: E11.65] Amita [facility]MAN [facility] [facility] CPT-4: 28339 08/27/2018 OFFICE/OUTPATIENT VISIT EST Diagnosis: Pneumonia, unspecified organism[ICD10: J18.9] Diagnosis: Chronic obstructive pulmonary disease with (acute) exacerbation[ICD10: J44.1] Diagnosis: Other specified symptoms and signs involving the circulatory and respiratory systems[ICD10: R09.89] Diagnosis: Essential (primary) hypertension[ICD10: I10] Amita [facility]MAN [facility] [facility] CPT-4: 16263 08/13/2018 OFFICE/OUTPATIENT VISIT EST Diagnosis: Pneumonia, unspecified organism[ICD10: J18.9] Diagnosis: Other specified symptoms and signs involving the circulatory and respiratory systems[ICD10: R09.89] Amita [facility]MAN [facility] [facility] CPT-4: 45801 08/11/2018 ([id number]) OFFICE/OUTPATIENT VISIT EST Diagnosis: Dyspnea, unspecified[ICD10: R06.00] Diagnosis: Chronic obstructive pulmonary disease with (acute) exacerbation[ICD10: J44.1] Diagnosis: Pneumonia, unspecified organism[ICD10: J18.9] Amita [facility]MAN [facility] [employer] [facility] CPT-4: 51869 07/16/2018 ([id number]) OFFICE/OUTPATIENT VISIT EST Diagnosis: Acute bronchitis due to other specified organisms[ICD10: J20.8] Diagnosis: Cough[ICD10: R05] Amita VALENTINEVisus TechnologyHAO [employer] [facility] T-4: 23581 07/13/2018 ([id number]) OFFICE/OUTPATIENT VISIT EST Diagnosis: Essential (primary) hypertension[ICD10: I10] Diagnosis: Chronic obstructive pulmonary disease, unspecified[ICD10: J44.9] Diagnosis: Type 2 diabetes mellitus with hyperglycemia[ICD10: E11.65] Diagnosis: Mixed hyperlipidemia[ICD10: E78.2] Neela STERLING [employer] [facility] CPT-4: 87383 06/03/2018 ([id number]) OFFICE/OUTPATIENT VISIT EST Diagnosis: Chronic obstructive pulmonary disease, unspecified[ICD10: J44.9] Gely Harp NEELA Octavio [employer] [facility] CPT-4: 52865 05/04/2018 ([id number]) OFFICE/OUTPATIENT VISIT EST Diagnosis: Essential (primary) hypertension[ICD10: I10] Diagnosis: Localized edema[ICD10: R60.0] Neela MURILLO [employer] [facility] CPT-4: 29866 03/03/2018 ([id number]) OFFICE/OUTPATIENT VISIT EST Diagnosis: Localized edema[ICD10: R60.0] Neela HYMAN [employer] [facility] CPT-4: 16662 02/17/2018 ([id number]) OFFICE/OUTPATIENT VISIT EST Diagnosis: FLU VACCINE[ICD10: Z23] Diagnosis: PNEUMOCOCCAL VACCINE[ICD10: Z23] Diagnosis: Type 2 diabetes mellitus without complications[ICD10: E11.9] Diagnosis: Mixed hyperlipidemia[ICD10: E78.2] Diagnosis: Essential (primary) hypertension[ICD10: I10] Diagnosis: Localized edema[ICD10: R60.0] Diagnosis: Chronic obstructive pulmonary disease, unspecified[ICD10: J44.9] Neela [facility]MAN [employer] [facility] CPT-4: 58433 02/10/2018 ([id number]) OFFICE/OUTPATIENT VISIT EST Diagnosis: Type 2 diabetes mellitus with hyperglycemia[ICD10: E11.65] Diagnosis: Mixed hyperlipidemia[ICD10: E78.2] Diagnosis: Essential (primary) hypertension[ICD10: I10] Diagnosis: Chronic obstructive pulmonary disease, unspecified[ICD10: J44.9] Diagnosis: Cutaneous abscess of back [any part, except buttock][ICD10: L02.212] Neela MIRZALINE Octavio [employer]MAN [employer] [facility] CPT-4: 34015 11/05/2017 ([id number]) OFFICE/OUTPATIENT VISIT EST Diagnosis: Allergic urticaria[ICD10: L50.0] Gely [facility]MAN [employer] [facility] CPT-4: 85439 09/09/2017 ([id number]) OFFICE/OUTPATIENT VISIT EST Diagnosis: Generalized enlarged lymph nodes[ICD10: R59.1] Diagnosis: Acute gastritis without bleeding[ICD10: K29.00] Gely [facility]MAN [employer] [facility] CPT-4: 59972 08/07/2017 ([id number]) OFFICE/OUTPATIENT VISIT EST Diagnosis: Type 2 diabetes mellitus without complications[ICD10: E11.9] Diagnosis: Mixed hyperlipidemia[ICD10: E78.2] Diagnosis: Essential (primary) hypertension[ICD10: I10] Neeladano Hyman NEELA Octavio [employer] [employer] [facility] CPT-4: 34310 08/04/2017 ([id number]) OFFICE/OUTPATIENT VISIT EST Diagnosis: Zoster without complications[ICD10: B02.9] Diagnosis: Acute sialoadenitis[ICD10: K11.21] Gely HYMAN [employer] [facility] CPT-4: 53640 06/04/2017 OFFICE/OUTPATIENT VISIT EST Diagnosis: Zoster without complications[ICD10: B02.9] Diagnosis: Acute sialoadenitis[ICD10: K11.21] Gely [facility]MAN [employer] [facility] CPT-4: 78167 06/02/2017 ([id number]) OFFICE/OUTPATIENT VISIT EST Diagnosis: Type 2 diabetes mellitus without complications[ICD10: E11.9] Diagnosis: Mixed hyperlipidemia[ICD10: E78.2] Diagnosis: Essential (primary) hypertension[ICD10: I10] Diagnosis: Chronic obstructive pulmonary disease, unspecified[ICD10: J44.9] Neela ZHANG [employer] [facility] CPT-4: 88875 05/05/2017 OFFICE/OUTPATIENT VISIT EST Diagnosis: Chronic obstructive pulmonary disease with acute lower respiratory infection[ICD10: J44.0] Diagnosis: Impacted cerumen, bilateral[ICD10: H61.23] Gely ZHANG [employer] [facility] CPT-4: 87407 04/10/2017 ([id number]) OFFICE/OUTPATIENT VISIT EST Diagnosis: FLU VACCINE[ICD10: Z23] Neela ZHANG [employer] [facility] CPT-4: 42738 03/28/2017 ([id number]) OFFICE/OUTPATIENT VISIT EST Diagnosis: Type 2 diabetes mellitus without complications[ICD10: E11.9] Diagnosis: Mixed hyperlipidemia[ICD10: E78.2] Diagnosis: Essential (primary) hypertension[ICD10: I10] Diagnosis: Chronic obstructive pulmonary disease, unspecified[ICD10: J44.9] Neela ZHANG [employer] [facility] CPT-4: 89764 02/03/2017 ([id number]) OFFICE/OUTPATIENT VISIT EST Diagnosis: Type 2 diabetes mellitus with hyperglycemia[ICD10: E11.65] Diagnosis: Mixed hyperlipidemia[ICD10: E78.2] Diagnosis: Essential (primary) hypertension[ICD10: I10] Diagnosis: Chronic obstructive pulmonary disease, unspecified[ICD10: J44.9] Neela HYMAN DO [facility] CPT-4: 19128 10/30/2016 ([id number]) NO CHARGE Diagnosis: Acute bronchitis, unspecified[ICD10: J20.9] Sammi HYMAN DO [facility] CPT-4: 57086 08/30/2016 ([id number]) OFFICE/OUTPATIENT VISIT EST Diagnosis: Acute bronchitis, unspecified[ICD10: J20.9] Diagnosis: Other seasonal allergic rhinitis[ICD10: J30.2] Sammi HYMAN DO [facility] CPT-4: 21918 08/27/2016 ([id number]) OFFICE/OUTPATIENT VISIT EST Diagnosis: Type 2 diabetes mellitus without complications[ICD10: E11.9] Diagnosis: Mixed hyperlipidemia[ICD10: E78.2] Diagnosis: Essential (primary) hypertension[ICD10: I10] Neela HYMAN DO [facility] CPT-4: 31984 07/02/2016 ([id number]) OFFICE/OUTPATIENT VISIT EST Diagnosis: Acute bronchitis, unspecified[ICD10: J20.9] Sammi [facility]MAN [employer] [facility] CPT-4: 00453 06/14/2016 ([id number]) OFFICE/OUTPATIENT VISIT EST Diagnosis: Acute bronchitis, unspecified[ICD10: J20.9] Sammi HYMAN DO [facility] CPT-4: 33142 06/13/2016 ([id number]) OFFICE/OUTPATIENT VISIT EST Diagnosis: Essential (primary) hypertension[ICD10: I10] Neela HYMAN DO [facility] CPT-4: 76812 05/14/2016 ([id number]) OFFICE/OUTPATIENT VISIT EST Diagnosis: Essential (primary) hypertension[ICD10: I10] Neela HYMAN DO [facility] CPT-4: 39491 04/29/2016 ([id number]) OFFICE/OUTPATIENT VISIT EST Diagnosis: Unspecified abdominal pain[ICD10: R10.9] Diagnosis: Left lower quadrant pain[ICD10: R10.32] Diagnosis: Left upper quadrant pain[ICD10: R10.12] Diagnosis: Essential (primary) hypertension[ICD10: I10] Neela HYMAN DO [facility] CPT-4: 97574 04/22/2016 ([id number]) OFFICE/OUTPATIENT VISIT EST Diagnosis: Type 2 diabetes mellitus without complications[ICD10: E11.9] Diagnosis: Mixed hyperlipidemia[ICD10: E78.2] Diagnosis: Essential (primary) hypertension[ICD10: I10] Neela HYMAN DO [facility] CPT-4: 78658 04/01/2016 ([id number]) OFFICE/OUTPATIENT VISIT EST Diagnosis: Type 2 diabetes mellitus with hyperglycemia[ICD10: E11.65] Diagnosis: Mixed hyperlipidemia[ICD10: E78.2] Diagnosis: Essential (primary) hypertension[ICD10: I10] Neela HYMAN DO [facility] CPT-4: 54704 11/30/2015 ([id number]) OFFICE/OUTPATIENT VISIT EST Diagnosis: Type 2 diabetes mellitus with diabetic neuropathy, unspecified[ICD10: E11.40] Diagnosis: Essential (primary) hypertension[ICD10: I10] Diagnosis: Mixed hyperlipidemia[ICD10: E78.2] Neela HYMAN [employer] [facility] CPT-4: 25575 08/29/2015 ([id number]) OFFICE/OUTPATIENT VISIT EST Diagnosis: COUGH[ICD10: R05] Diagnosis: Wheezing[ICD10: R06.2] Diagnosis: Type 2 diabetes mellitus with diabetic neuropathy, unspecified[ICD10: E11.40] Neela HYMAN DO [facility] CPT-4: 43431 08/14/2015 ([id number]) OFFICE/OUTPATIENT VISIT EST Diagnosis: Other seasonal allergic rhinitis[ICD10: J30.2] Diagnosis: Dyspnea, unspecified[ICD10: R06.00] Diagnosis: Wheezing[ICD10: R06.2] Sammi Reinaldo HYMAN DO [facility] CPT-4: 58895 08/09/2015 ([id number]) OFFICE/OUTPATIENT VISIT EST Diagnosis: Essential (primary) hypertension[ICD10: I10] Diagnosis: Type 2 diabetes mellitus with hyperglycemia[ICD10: E11.65] Diagnosis: Mixed hyperlipidemia[ICD10: E78.2] Neela STERLING SMendez [employer]MAN [employer] [facility] CPT-4: 86452 05/22/2015 ([id number]) OFFICE/OUTPATIENT VISIT EST Diagnosis: DM W/O COMPLICATION TYPE II[ICD9: 250.00] Diagnosis: - I - HYPERTENSION[ICD9: 401.9] Diagnosis: - I - HYPERLIPIDEMIA NEC/NOS[ICD9: 272.4] Diagnosis: Left hand paresthesia[ICD9: 782.0] Neela STERLING SMendez HYMAN [employer] [facility] CPT-4: 74435 02/13/2015 ([id number]) OFFICE/OUTPATIENT VISIT EST Diagnosis: HYPERLIPIDEMIA NEC/NOS[ICD9: 272.4] Diagnosis: DM W/O COMPLICATION TYPE II[ICD9: 250.00] Neela HYMAN [employer] [employer] [facility] CPT-4: 22014 11/07/2014 ([id number]) OFFICE/OUTPATIENT VISIT EST Diagnosis: ALLERGIC RHINITIS[ICD9: 477.9] Diagnosis: WHEEZING[ICD9: 786.07] Neela Duarte [employer] [employer] [facility] CPT-4: 32508 10/04/2014 ([id number]) OFFICE/OUTPATIENT VISIT EST Diagnosis: BRONCHITIS, ACUTE[ICD9: 466.0] Diagnosis: WHEEZING[ICD9: 786.07] Loren BADILLO R [employer] [facility] CPT-4: 55850 09/22/2014 ([id number]) OFFICE/OUTPATIENT VISIT EST Diagnosis: DYSPNEA[ICD9: 786.09] Diagnosis: WHEEZING[ICD9: 786.07] Diagnosis: Arrhythmia[ICD9: 427.9] Loren VALENTINEND ER [employer] [facility] CPT-4: 32070 09/21/2014 ([id number]) OFFICE/OUTPATIENT VISIT EST Diagnosis: DM W/O COMPLICATION TYPE II, 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] Diagnosis: - I - HYPERLIPIDEMIA NEC/NOS[ICD9: 272.4] Diagnosis: - I - HYPERTENSION[ICD9: 401.9] Neela HYMAN [employer] [facility] CPT-4: 83519 06/28/2014 OFFICE/OUTPATIENT VISIT EST Diagnosis: SINUSITIS, ACUTE[ICD9: 461.9] Diagnosis: OTITIS MEDIA NOS[ICD9: 382.9] [facility] 36402 06/10/2014 ([id number]) OFFICE/OUTPATIENT VISIT EST Diagnosis: DM W/O COMPLICATION TYPE II[ICD9: 250.00] Diagnosis: - I - HYPERLIPIDEMIA NEC/NOS[ICD9: 272.4] Diagnosis: - I - HYPERTENSION[ICD9: 401.9] [facility] 45123 03/29/2014 ([id number]) OFFICE/OUTPATIENT VISIT EST Diagnosis: DM W/O COMPLICATION TYPE II[ICD9: 250.00] Diagnosis: - I - HYPERTENSION[ICD9: 401.9] Diagnosis: - I - HYPERLIPIDEMIA NEC/NOS[ICD9: 272.4] Diagnosis: Hand lesion[ICD9: 709.9] Neela Sergemelany MURILLO JulissaMendez [facility] CPT-4: 45019 11/30/2013 ([id number]) OFFICE/OUTPATIENT VISIT EST Diagnosis: DM W/O COMPLICATION TYPE II[ICD9: 250.00] Diagnosis: HYPERLIPIDEMIA NEC/NOS[ICD9: 272.4] Diagnosis: HYPERTENSION[ICD9: 401.9] Neela Sergeushahao MIRZANEELA JulissaMendez [facility] CPT-4: 92482 08/03/2013 ([id number]) OFFICE/OUTPATIENT VISIT EST Diagnosis: DM W/O COMPLICATION TYPE II, 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] Diagnosis: HYPERTENSION[ICD9: 401.9] Diagnosis: HYPERLIPIDEMIA NEC/NOS[ICD9: 272.4] Neela GREGORIO [facility]Mendez [facility] CPT-4: 40053 04/06/2013 ([id number]) OFFICE/OUTPATIENT VISIT EST Diagnosis: DM W/O COMPLICATION TYPE II[ICD9: 250.00] Diagnosis: HYPERLIPIDEMIA NEC/NOS[ICD9: 272.4] Diagnosis: HYPERTENSION[ICD9: 401.9] Neela Sergemelany MURILLO JulissaMendez [facility] CPT-4: 77119 12/01/2012 ([id number]) OFFICE/OUTPATIENT VISIT EST Diagnosis: DM W/O COMPLICATION TYPE II[ICD9: 250.00] Diagnosis: HYPERTENSION[ICD9: 401.9] Diagnosis: HYPERLIPIDEMIA NEC/NOS[ICD9: 272.4] Neela GREGORIO JulissaMendez [facility] CPT-4: 30066 08/04/2012 ([id number]) OFFICE/OUTPATIENT VISIT EST Diagnosis: URINARY FREQUENCY[ICD9: 788.41] Neela Cunningham [facility] CPT-4: 19764 06/01/2012 OFFICE/OUTPATIENT VISIT EST Diagnosis: Agitation[ICD9: 307.9] Diagnosis: Frequent urination[ICD9: 788.41] Janet [facility]: 79180 05/29/2012 OFFICE/OUTPATIENT VISIT EST Diagnosis: SINUSITIS, ACUTE[ICD9: 461.9] Diagnosis: OTALGIA[ICD9: 388.70] Ne[facility] Cunningham [facility] CPT-[facility]: 51956 05/25/2012 OFFICE/OUTPATIENT VISIT EST Diagnosis: DM W/O COMPLICATION TYPE II, 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] Diagnosis: HYPERTENSION[ICD9: 401.9] Diagnosis: HYPERLIPIDEMIA NEC/NOS[ICD9: 272.4] Neela GREGORIO [facility]issaMendez [facility] CPT-4: 68405 04/07/2012 OFFICE/OUTPATIENT VISIT EST Diagnosis: FINGER INJURY[ICD9: 959.5] Janet Cunningham [facility] CPT-4: 43949 12/16/2011 ([id number]) OFFICE/OUTPATIENT VISIT EST Diagnosis: DM W/O COMPLICATION TYPE II, 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] Diagnosis: HYPERTENSION[ICD9: 401.9] Diagnosis: HYPERLIPIDEMIA NEC/NOS[ICD9: 272.4] Neela Cunningham [facility] CPT-4: 88635 12/03/2011 ([id number]) OFFICE/OUTPATIENT VISIT EST Diagnosis: DM W/O COMPLICATION TYPE II[ICD9: 250.00] Diagnosis: HYPERLIPIDEMIA NEC/NOS[ICD9: 272.4] Diagnosis: HYPERTENSION[ICD9: 401.9] Neela Cunningham ORE NDER DO [facility] CPT-4: 48933 08/29/2011 OFFICE/OUTPATIENT VISIT EST Diagnosis: DM W/O COMPLICATION TYPE II[ICD9: 250.00] Diagnosis: HYPERLIPIDEMIA NEC/NOS[ICD9: 272.4] Diagnosis: HYPERTENSION[ICD9: 401.9] Neela VALENTINE NDER DO [facility] CPT-4: 21131 05/30/2011 OFFICE/OUTPATIENT VISIT EST Diagnosis: SKIN SENSATION DISTURB[ICD9: 782.0] Neela GREGORIO S. ORENDER DO [facility] CPT-4: 01025 01/29/2011 OFFICE/OUTPATIENT VISIT EST Diagnosis: SKIN SENSATION DISTURB[ICD9: 782.0] Neela GREGORIO S. ORENDER DO [facility] CPT-4: 78445 01/14/2011 OFFICE/OUTPATIENT VISIT EST Neela VALENTINE NDER DO [facility] CPT- 4: 64940 01/01/2011 OFFICE/OUTPATIENT VISIT EST Neela MURILLO SMendez VALENTINE NDER DO [facility] CPT- 4: 14935 11/29/2010 ([id number]) OFFICE/OUTPATIENT VISIT EST Neela QURESHI AUNG S. ORENDER DO [facility] CPT-4: 28758 08/28/2010 ([id number]) OFFICE/OUTPATIENT VISIT, EST Neela WILDE S. ORENDER DO [facility] CPT-4: 82578 06/05/2010 ([id number]) OFFICE/OUTPATIENT VISIT, EST Neela Sergeushahao WILDE S. ORENDER DO [facility] CPT-4: 55199 02/05/2010 ([id number]) OFFICE/OUTPATIENT VISIT, EST Neela Yenni WILDE S. ORENDER DO [facility] CPT-4: 13671 10/09/2009 ([id number]) OFFICE/OUTPATIENT VISIT, EST Neela Oreushahao SETH CHANI S. ORENDER DO [facility] CPT-4: 17431 08/22/2009 Plan of Care Planned Activity Notes Codes Status Date Visit Diagnosis Plan: Advanced chronic obstructive pul monary disease Discussion: Continue oxygen and pulmonary rehab Follow Up: 3 months ICD-9 : 496 ICD-10 : J44.9 05/10/2019 Visit Diagnosis Plan: Lymphoma involving lung Discussi on: Doing weekly lab and chemo ICD-9 : 202.82 ICD-10 : C85.99 05/10/2019 Appointment: Neela Hyman WPtel: [address] [place], [place] [phone] he called 04/14/19-- he was at physical [...] : J44.1 03/29/2019 Appointment: Neela Hyman WPtel: [address] [place] [address] Hospital Follow Up 03/29/2019 Appointment: Neela Hyman WPtel: [address] [place], [place] [phone] [place] INJECTION 03/04/2019 Visit Diagnosis Plan: Other nonspecific abnormal findi ng of lung field Discussion: Referral to pulmonology--will likely need bronchoscopy--path results discussed ICD-9 : 786.6 ICD-10 : R91.8 01/05/2019 Visit Diagnosis Plan: Chronic obstructiv e pulmonary disease with (acute) exacerbation Discussion: Increase SVNS with duoneb to QID Prednisone taper ICD-9 : 491.21 ICD-10 : J44.1 01/05/2019 Appointment: Neela Hyman WPtel: [address] [place], [place] [phone] FOLLOW UP 01/05/2019 Patient Education: prednisone- OptimizeRX Coupon [id number] https://www.[email or web address].com/samplemd/resources/getResource/61/[email or web address]-5t69-op Completed 01/05/2019 Care Plan: Referral Order SNOMED-CT : 30 [id number] Pending 01/05/2019 Appointment: Neela Hyman WPtel: [address] [place], [place] [phone] [place] CANCELED 12/21/2018 Visit Diagnosis Plan: Solitary pulmonary nodule Discus esmer: CT guided needle biopsy of RUL lung mass ICD-9 : 793.11 ICD-10 : R91.1 12/09/2018 Visit Diagnosis Plan: Tinea corporis Discussion: Diflu can--hold simvastatin and fenofibrate while taking ICD-9 : 110.5 ICD-10 : B35.4 12/09/2018 Appointment: Neela Hyman WPtel: [address] [place] [address] [place] FOLLOW UP 12/09/2018 Appointment: Gely Harp [address] [place] [address] [place] NO SHOW 12/01/2018 Visit Diagnosis Plan: [...] : J44.9 11/24/2018 Appointment: Neela Hyman WPtel: [address] [place], [place] [phone] US FOLLOW UP 11/24/2018 Care Plan: PET IMAGE FULL BODY LOINC : 4 2711-2 Pending 11/24/2018 Appointment: Neela Hyman WPtel: [address] [place], [place] [phone] [place] Consult 09/21/2018 Visit Diagnosis Plan: Pneumonia, unspecified organism Discussion: Patient clinically improved. Recent CT scan from 09/07 showed unresolved right upper lobe pneumonia. Finished another 7 days of levaquin. Will repeat CBC early next week. Order sent with patient to get done at [facility]. FU CT recommended in 4 weeks. Patient states understanding. ICD-9 : 486 ICD-10 : J18.9 09/16/2018 Appointment: [facility] [place] [id number] FOLLOW UP 09/16/2018 Visit Diagnosis Plan: Pneumonia, unspecified organism Discussion: Clinically patient feels and looks much better but need CT scan of chest due to ongoing round pneumonia in association with his known lymphoma ICD-9 : 486 ICD-10 : J18.9 09/03/2018 Appointment: Neela Hyman WPtel: [phone] [facility] FOLLOW UP 09/03/2018 Care Plan: CT [...] before upcoming appt. with doctor. [facility] CBC, CMP, TSH, Lipid, A1C ICD-9 : 250.02 ICD-10 : E11.65 08/27/2018 Visit Diagnosis Plan: Essential (primary) hypertension Discussion: Stable on diltiazem. Jc vieyra. Had ECHO last week. Requesting copies of results from cardiology. ICD-9 : 401.9 ICD-10 : I10 08/27/2018 Appointment: Amita [facility] [place] [id number] FOLLOW UP 08/27/2018 Visit Diagnosis Plan: Other [...] ICD-10 : J44.1 08/13/2018 Appointment: Amita [facility] [place] [id number] [facility] FOLLOW UP 08/13/2018 Appointment: Amita [facility] [place] [id number] CANCELED 08/13/2018 Patient Education: prednisone- OptimizeRX Coupon [id number] https://www.[employer]/sampleMI Airline/resources/getResource/61/[email or web address] Completed 08/13/2018 Visit Diagnosis Plan: Other specified [...] ICD-10 : J18.9 08/11/2018 Appointment: Amita [facility] [address] [place], [place] [id number] ACUTE ILLNESS 08/11/2018 Care Plan: CHEST X-RAY 2VW FRONTAL&LATL LOINC : 82176-1 Pending 07/20/2018 Visit Diagnosis Plan: Dyspnea, unspecified Discussion: CXR- to be completed at the hospital. Will call with results and any adjustments in plan. Solumedrol 125 administered in clinic Prednisone 20 mg BID x 5 days- start tomorrow ICD-9 : 786.09 ICD-10 : R06.00 07/16/2018 Appointment: Amita [facility] [address] [place], [place] [address] ACUTE ILLNESS 07/16/2018 Patient Education: prednisone- OptimizeRX Coupon [id number] https://www.[employer]/samplemd/resources/getResource/61/71j4j9sl-ya08-4su0-o7 Completed 07/16/2018 Visit Diagnosis Plan: Acute bronchitis due to other sp ecified organisms Discussion: Kenalog 40 mg IM administered in clinic. Doxycycline called into [facility]. Take as directed. Continue nebulizer and Trelegy. Follow up if symptoms are not improving with treatment regimen. Patient states understanding of all instruction. ICD-9 : 466.0 ICD-10 : J20.8 07/13/2018 Appointment: Amita [facility] [address] [place], [place] [address] ACUTE ILLNESS 07/13/2018 Patient Education: doxycycline hyclate- OptimizeRX Cou saritha [id number] https://www.[employer]/samplemd/resources/getResource/61/1j886d57-1h7b-5645-4c Completed 07/13/2018 Care Plan: [place] : [address]-5 Pending 07/13/2018 Care Plan: CBC Pending 07/13/2018 Care Plan: A1C HPLC LOINC : 60599-5 Pending 07/13/2018 Visit Diagnosis Plan: Mixed hyperlipidemia [...] : J44.9 06/03/2018 Appointment: Neela Hyman WPtel: [address] [place] [address] [place] FOLLOW UP 06/03/2018 Visit Diagnosis Plan: [...] : J44.9 05/04/2018 Appointment: Gely Harp [address] [place] [address] ACUTE ILLNESS 05/04/2018 Visit Diagnosis Plan: Localized edema Discussion: Cont inue lasix and potassium at every other day Recheck lab and fwup in 3mos Follow Up: 3 months ICD-9 : 782.3 ICD-10 : R60.0 03/03/2018 Appointment: Neela Hyman WPtel: [address] [place] [address] [place] FOLLOW UP 03/03/2018 Patient Education: Patient Medication Summary Completed 03/03/2018 Visit Diagnosis Plan: Localized edema Discussion: Finch ge lasix and potassium to every other day Check Chem 7 in 2 weeks and fwup ICD-9 : 782.3 ICD-10 : R60.0 02/17/2018 Appointment: Neela Hyman WPtel: [address] [place] [address] FOLLOW UP 02/17/2018 Patient Education: Patient Medication [...] E78.2 02/10/2018 Appointment: Neela Hyman WPtel: [phone] [phone] [place] FOLLOW UP 02/10/2018 Patient Education: Patient [...] 401.9 ICD-10 : I10 11/05/2017 Appointment: Neela Hymna WPtel: [phone] [facility] US FOLLOW UP 11/05/2017 Patient Education: Patient Medication Summary Completed 11/05/2017 Patient Education: Patient Medication Summary Completed 11/03/2017 Care Plan: [place] : [address]-9 Pending 11/03/2017 Care Plan: LIPID PANEL LOINC : 23308-4 Pending 11/03/2017 Care Plan: CBC Pending 11/03/2017 Care Plan: A1C HPLC LOINC : 79337-2 Pending 11/03/2017 Visit Diagnosis Plan: Allergic urticaria [...] : L50.0 09/09/2017 Appointment: Gely Harp [address] [place], [place] [address] ACUTE ILLNESS 09/09/2017 Patient Education: Patient Medication [...] ICD-10 : K29.00 08/07/2017 Appointment: Gely Harp [facility] [facility] Follow Up 08/07/2017 Patient Education: Patient Medication Summary Completed 08/07/2017 Visit Diagnosis Plan: Essential (primary) hypertension Discussion: Increase Cardizem CD to 360mg daily ICD-9 : 401.9 ICD-10 : I10 08/04/2017 Visit Diagnosis Plan: Type 2 diabetes mellitus without complications Discussion: Accuchecks daily Lab discussed Continue current meds ICD-9 : 250.00 ICD-10 : E11.9 08/04/2017 Appointment: [facility]yman [facility]el[phone] [id number] FO[facility] UP 08/04/2017 Patient Education: Patient Medication Summary Completed 08/04/2017 Patient Education: Patient Medication Summary Completed 07/31/2017 Care Plan: [place] : [address]-0 Pending 07/31/2017 Care Plan: ASSAY THYROID STIM HORMONE Pen ding 07/31/2017 Care Plan: LIPID PANEL LOINC : 45872-5 Pending 07/31/2017 Care Plan: CBC Pending 07/31/2017 Care Plan: A1C HPLC LOINC : 68029-9 Pending 07/31/2017 Patient Education: Patient Medication Summary Completed 06/19/2017 Patient Education: Patient Medication Summary Completed 06/09/2017 Care Plan: CT SOFT TISSUE [place] : [address]-8 Pending 06/09/2017 Visit Diagnosis Plan: Acute sialoadenitis [...] ICD-10 : B02.9 06/04/2017 Appointment: Gely Harp [address] [place], [place] [address] ACUTE ILLNESS 06/04/2017 Patient Education: Patient Medication [...] : B02.9 06/02/2017 App[facility]ment[facility] [facility] 06/02/2017 Patient Education: Patient [...] E78.2 05/05/2017 Appointment: [facility]el[facility] [phone] [facility] [facility] 05/05/2017 Patient Education: Patient Medication Summary Completed 05/05/2017 Patient Education: Patient Medication Summary Completed 05/01/2017 Care Plan: A1C HPLC [facility] : 41753-4 Pending 05/01/2017 Visit Diagnosis Plan: Impacted cerumen, [...] : J44.0 04/10/2017 Appointment: [facility] Harp [address] [facility] ACUTE ILLNESS 04/10/2017 Patient Education: Patient Medication Summary Completed 04/10/2017 Appointment: Neela Hyman WPtel: [address] [place], [place] [phone] [place] INJECTION 03/28/2017 Patient Education: Patient Medication [...] : I10 02/03/2017 Appointment: Neela Hyman WPtel: [address] [place], [place] [id number] FOLLOW UP 02/03/2017 Patient Education: Patient Medication Summary Completed 02/03/2017 Patient Education: Patient Medication Summary Completed 01/30/2017 Care Plan: COMPREH[place] : 132[address]-3 Pending 01/30/2017 Care Plan: LIPID PANEL LOINC : 72204-2 Pending 01/30/2017 Care Plan: CBC Pending 01/30/2017 Care Plan: A1C HPLC LOINC : 56608-3 Pending 01/30/2017 Care Plan: ASSAY OF PSA [...] J44.9 10/30/2016 Appointment: Neela [facility]yman [facility]Ptel[facility] [phone] [facility] [facility] 10/29 lm ~sl 10/30 confirmed~sl FOLLOW UP 11/2016 Patient Education: Patient Medication Summary Completed 10/30/2016 Patient Education: Patient Medication Summary Completed 10/24/2016 Visit Diagnosis Plan: Acute bronchitis, unspecified Di scussion: Patient sounds and looks much improved Continue current regimen Keep appt with Dr Levi for Friday Follow up PRN ICD-9 : 466.0 ICD-10 : J20.9 08/30/2016 Appointment: [phone] [facility] [facility] / rang and rang rang 08/30 [...] : J20.9 08/27/2016 Appointment: Reinaldo [facility]ammi [facility] [facility] [facility] 08/27/2016 Patient Education: Patient Medication Summary Completed 08/27/2016 Care Plan: Referral Order SNOMED-CT : 30 [id number] Pending 08/27/2016 Visit Diagnosis Plan: Type 2 [...] E78.2 07/02/2016 Appointment: Neela [facility]yman [facility]Ptel[facility] [phone] [facility] 07/01 rang and rang`sl FOLLOW UP 7 Patient Education: Patient Medication Summary Completed 07/02/2016 Patient Education: Patient Medication Summary Completed 06/27/2016 Care Plan: LIPID PANEL LOINC : 40826-3 Pending 06/27/2016 Care Plan: [place] : 62314-3 Pending 06/27/2016 Care Plan: A1C HPLC LOINC : 85584-1 Pending 06/27/2016 Visit Diagnosis Plan: Acute bronchitis, [...] ICD-10 : J20.9 06/14/2016 Appointment: Sammi Najera [address] [place], [place] [address] FOLLOW UP 06/14/2016 Patient Education: Patient Medication [...] ICD-10 : J20.9 06/13/2016 Appointment: Sammi Najera [address] [place], [place] [address] ACUTE ILLNESS 06/13/2016 Patient Education: Patient Medication Summary Completed 06/13/2016 Care Plan: CHEST X-RAY 2VW FRONTAL&LATL LOINC : 66070-6 Pending 06/13/2016 Visit Plan: Increase metoprolol to 100mg po BID BP readings and BP check in 1month 05/14/2016 Appointment: Neela Hyman WPtel: [facility] 05/13 rang and rang`sl FOLLOW UP 6 Patient Education: Patient Medication Summary Completed 05/14/2016 Visit Plan: Increase metoprolol to 50mg BID BP check in 1 week f/u BP appt 2 weeks consider musculoskeletal if pain returns 04/29/2016 Appointment: Neela Hyman WPtel: [address] [place], [place] [phone] 04/25 confimred~sl FOLLOW UP 04/29/2016 Patient Education: Patient Medication Summary Completed 04/29/2016 Visit Plan: Stat CT scan of abdomen/pelv is to look for stone Hydrate and use tramadol prn Increase metoprolol to 25mg po BID Will see urology pending CT scan results 04/22/2016 Appointment: Neela Hyman WPtel: [address] [place] [address] 04/17 confirmed-sp ACUTE ILLNESS 04/22/2016 Patient Education: [...] flu shot 04/01/2016 Appointment: Neela Hyman WPtel: [address] [place], [place] [phone] FOLLOW UP 04/01/2016 Patient Education: Patient Medication Summary Completed 04/01/2016 Patient Education: [facility] - Saving AutoInj - 18-64 - Dynamic Heber l ID Completed 04/01/2016 Patient Education: Patient Medication Summary Completed 03/28/2016 Care Plan: A1C HPLC LOINC : 36210-3 Pending 03/28/2016 Care Plan: [place] : 94[address]-5 Pending 03/28/2016 Visit Plan: Lab discussed Continue curre nt meds Accuchecks daily 11/30/2015 Appointment: Neela Hyman WPtel: [address] [place] [address] 11/28 confirmed~sl FOLLOW UP 11/30/2015 Patient Education: Patient Medication Summary Completed 11/30/2015 Appointment: Neela Hyman WPtel: [address] [place] [address] RESCHEDULED 11/28/2015 Patient Education: Patient Medication Summary Completed 11/23/2015 Care Plan: COMPREHEN [place]AB[place] : 96047-8 Pending 11/23/2015 Care Plan: LIPID PANEL LOINC : 13087-7 Pending 11/23/2015 Care Plan: CBC Pending 11/23/2015 Care Plan: A1C HPLC LOINC : 43917-9 Pending 11/23/2015 Visit Plan: Lab discussed Accuchecks richard ly Continue current meds Cymbalta helping with feet and mood 08/29/2015 Appointment: Neela Hyman WPtel: [address] [place], [place] [phone] FOLLOW UP 08/29/2015 Patient Education: Patient Medication Summary Completed 08/29/2015 Visit Plan: Check CXR Stop all steroids and steroid inhalers Use SVN with but change to duoneb Add singulair for allergy etiology Change fluoxetine to cymbalta 60mg daily Viagra samples given to try prn--warned of no nitrates 08/14/2015 Appointment: Neela Hyman WPtel: [address] [place], [place] [phone] lm to reschedule ~sl 07/27 lm ~sl 08/09 busy 08/10 fer rosales-riley Annual Well Visit 08/14/2015 Patient Education: Patient Medication Summary Completed 08/14/2015 Care Plan: CHEST X-RAY 2VW FRONTAL&LATL LOINC : 90978-8 Ordered 08/14/2015 Visit Plan: Decadron 8mg given [...] as expected 08/09/2015 Appointment: Reinaldo Sammi [phone] [facility] ER Follow UP 08/09/2015 Patient Education: Patient Medication Summary Completed 08/09/2015 Patient Education: [facility] - Saving AutoInj - 18-64 - Dynamic Heber l ID Completed 08/09/2015 Patient Education: Symbicort - 18-64 - eCopay Completed 08/09/2015 Patient Education: Patient Medication Summary Completed 08/08/2015 Visit Plan: Lab discussed Accuchecks richard nilda Patient admits has changed eating habits--was eating twinkies and cookies routinely and has stopped buying those Will keep meds same for now Justion got hearing aids and is doing well with it 05/22/2015 Appointment: Neela Hyman WPtel: [address] [place], [place] [phone] 05/17 confirmed~sl FOLLOW UP 05/22/2015 Patient Education: Patient Medication Summary Completed 05/22/2015 Patient Education: Patient Medication Summary Completed 05/15/2015 Visit Plan: Obtain EMGs done at [facility] from when fractured left arm Lab discussed Accuchecks daily 02/13/2015 Appointment: Neela Hyman WPtel: [address] [place], [place] [phone] 02/10 confrimed FOLLOW UP 02/13/2015 Patient Education: Patient Medication Summary Completed 02/13/2015 Patient Education: Patient Medication Summary Completed 02/09/2015 Visit Plan: discussed lab add fenofibrat e 134mg po daily recheck fasting lab in 3 months, CBC, CMP, Lipids, hgb AIC 11/07/2014 Appointment: Neela Hyman WPtel: [address] [place], [place] [phone] 11/04 appt confirmed cn FOLLOW UP 015 Patient Education: Patient Medication Summary Completed 11/07/2014 Patient Education: Patient Medication Summary Completed 11/03/2014 Visit Plan: Continue loratadine 10mg richard ly Notify if symptoms return 10/04/2014 Appointment: Neela Hyman WPtel: [address] [place] [address] confirmed on 10/03 at 2:42pm FOLLOW UP 09/23 Patient Education: Patient Medication Summary Completed 10/04/2014 Appointment: Neela Hyman WPtel: [address] [place] [address] ACUTE ILLNESS 09/28/2014 Appointment: Loren Garza WPtel: [address] [place] [address] FOLLOW UP 09/22/2014 Patient Education: Patient Medication Summary Completed 09/22/2014 Appointment: Loren Garza WPtel: [address] [place] [address] ACUTE ILLNESS 09/21/2014 Patient Education: Patient Medication Summary Completed 09/21/2014 Patient Education: [facility] - Saving AutoInj - 18+ - Dynamic Portal ID Completed 09/21/2014 Visit Plan: Lab discussed Continue daily accuchecks Continue current meds 06/28/2014 Appointment: Neela Hyman WPtel: [address] [place] [address] FOLLOW UP 06/28/2014 Patient Education: Patient Medication Summary Completed 06/28/2014 Patient Education: Patient Medication Summary Completed 06/23/2014 Appointment: Sarah Sunshine WPtel: [address] [place] [address] ACUTE ILLNESS 06/10/2014 Patient Education: Patient Medication Summary Completed 06/10/2014 Patient Education: [facility] - Saving AutoInj - 18+ - Dynamic Portal ID Completed 06/10/2014 Visit Plan: Lab discussed Continue daily accuchecks Continue current meds 03/29/2014 Appointment: Neela Hyman WPtel: [address] [place] [address] FOLLOW UP 03/29/2014 Patient Education: Patient Medication Summary Completed 03/29/2014 Patient Education: Patient Medication Summary Completed 03/23/2014 Visit Plan: Lab discussed Continue curre nt meds and accuchecks See surgery for removal of hand lesion 11/30/2013 Appointment: Neela Hyman WPtel: [address] [place] [address] 11/29 no answer FOLLOW UP 11/30/2013 Patient Education: Patient Medication Summary Completed 11/30/2013 Visit Plan: Lab discussed Continue curre nt meds 08/03/2013 Appointment: Neela Hyman WPtel: [address] [place] [address] FOLLOW UP 08/03/2013 Patient Education: Patient Medication Summary Completed 08/03/2013 Visit Plan: Lab Discussed Will continue current meds and pt will get back on diet/exercise Check lab in 4mos and fwup 04/06/2013 Appointment: Neela Hyman WPtel: [address] [place] [address] FOLLOW UP 04/06/2013 Patient Education: Patient Medication Summary Completed 04/06/2013 Visit Plan: Lab discussed Continue daily accuchecks 12/01/2012 Appointment: Neela Hyman WPtel: [address] [place] [address] 11/30 no answer FOLLOW UP 12/01/2012 Patient Education: Patient Medication Summary Completed 12/01/2012 Visit Plan: Continue current meds and da russell accuchecks Lab discussed 08/04/2012 Appointment: Neela Hyman WPtel: [address] [place] [address] FOLLOW UP 08/04/2012 Patient Education: Patient Medication Summary Completed 08/04/2012 Appointment: Neela Hyman WPtel: [address] [place], [place] [phone] [facility] 06/01/2012 Patient Education: Patient Medication Summary Completed 06/01/2012 Appointment: Janet Jean Baptiste WPtel: [address] [place], [place] [phone] FOLLOW UP 05/29/2012 Patient Education: Patient Medication Summary Completed 05/29/2012 Visit Plan: pt states Dr. Hyman told h is to increase his Prozac dose while she was talking to her at [facility]. Discussed that pt. should not increase or decrease dosage without Dr's knowledge. Pt. will seek hearing test here in town at the hearing [facility] on [address]. Discussed that ear pain is likely caused by sinus pressure. Pt. will notify if no improvement. 05/25/2012 Appointment: Janet Jean Baptiste WPtel: [address] [place] [address] ACUTE ILLNESS 05/25/2012 Patient Education: Patient Medication Summary Completed 05/25/2012 Visit Plan: Continue current meds Contin ue daily accuchecks but alternate times Increase fish oil to 3gm daily 04/07/2012 Appointment: Neela Hyman WPtel: [address] [place], [place] [phone] 04/06 FOLLOW UP 04/07/2012 Patient Education: Patient Medication Summary Completed 04/07/2012 Appointment: Janet Jean Baptiste WPtel: [address] [place] [address] ACUTE ILLNESS 12/16/2011 Patient Education: Patient Medication Summary Completed 12/16/2011 Visit Plan: Increase 12/03/2011 Appointment: Neela Hyman WPtel: [address] [place], [place] [phone] [place] FOLLOW UP 12/03/2011 Patient Education: Patient Medication Summary Completed 12/03/2011 Visit Plan: Continue current meds Contin ue accuchecks 08/29/2011 Appointment: Neela Hymna WPtel: [address] [place], [place] [phone] [place] FOLLOW UP 08/29/2011 Patient Education: Patient Medication Summary Completed 08/29/2011 Visit Plan: Continue current meds except restart zocor 05/30/2011 Appointment: Neela Hymantel: [address] [place], [place] [phone] [place] FOLLOW UP 05/30/2011 Patient Education: Patient Medication Summary Completed 05/30/2011 Visit Plan: Continue tennis elbow strap May go back to weight-lifing--light weigts every other day 01/29/2011 Appointment: Neela Hyman WPtel: [address] [place], [place] [address] [place] FOLLOW UP 01/29/2011 Patient Education: Patient Medication Summary Completed 01/29/2011 Visit Plan: Continue tennis elbow strap and anti-inflammatories 01/14/2011 Appointment: Neela Hyman WPtel: [address] [place] [address] FOLLOW UP 01/14/2011 Appointment: Janet Jean Baptiste WPtel: [address] [place] [address] NEW PATIENT 01/14/2011 Patient Education: Patient Medication Summary Completed 01/14/2011 Appointment: Neela Hyman WPtel: [address] [place] [address] FOLLOW UP 01/08/2011 Appointment: Neela Hyman WPtel: [address] [place] [address] FOLLOW UP 01/01/2011 Appointment: Neela Hyman WPtel: [address] [place], [place] [address] UA 01/01/2011 Patient Education: Patient Medication Summary [...] given. 11/29/2010 Appointment: Janet Jean Baptiste WPtel: [address] [place] [address] ACUTE ILLNESS 11/29/2010 Patient Education: Patient Medication Summary Completed 11/29/2010 Visit Plan: Cont current meds Check CMP, Lipids, HbA1C 08/28/2010 Appointment: Neela Hyman WPtel: [address] [place] [address] FOLLOW UP 08/28/2010 Patient Education: Patient Medication Summary Completed 08/28/2010 Visit Plan: Cont current meds and accuch ecks Add Zocor 40mg q HS Check Lipids and HbA1C in 3mos 06/05/2010 Appointment: Neela Hyman WPtel: [address] [place] [address] FOLLOW UP 06/05/2010 Patient Education: Patient Medication Summary Completed 06/05/2010 Visit Plan: Check Lipids and HbA1C 02/05/2010 Appointment: Neela Hyman WPtel: [address] [place] [address] FOLLOW UP 02/05/2010 Patient Education: Patient Medication Summary Completed 02/05/2010 Visit Plan: HbA1C in 3mos. Continue Accu checks BID alternating times. Check HbA1C, CMP, Lipids 10/09/2009 Appointment: Neela Hyman WPtel: [address] [place] [address] FOLLOW UP 10/09/2009 Patient Education: Patient Medication Summary Completed 10/09/2009 Visit Plan: Saline nasal flushes prn. Ty lenol/Motrin prn headache. Notify if persists/symptoms worsening. 08/22/2009 Appointment: Neela Hyman WPtel: [address] [place] [address] ACUTE ILLNESS 08/22/2009 Patient Education: Patient Medication Summary Completed 08/22/2009 Referral: Aubrey Rand WPtel: [address] [place], [place] [phone] [place] Office will verfy his insurance then they will contact patient Completed Referral: Shahbaz Brnenan WPtel: [address] [facility] [address] [id number] [place] Referral Completed Referral: Ion Levi [address] [place] [id number] [place] Referral Appointment Requested Referral: Ion Levi [address] [facility] [place] [id number] [place] Referral Appointment Requested Instructions Comment . [...] with it . Obtain EMGs done at [facility] from when fractured left arm Lab discussed [...] she was talking to her at [facility]. Discussed that pt. should not increase or decrease dosage without Dr's knowledge. Pt. will seek hearing test here in town at the hearing aid place on [address]. Discussed that ear pain is likely caused [...]
[2019-12-09 09:25] LABS: ALBUMIN 4.2 GM/DL (3.2-4.5); CHLORIDE 101 MMOL/L (98-107); POTASSIUM 3.7 MMOL/L (3.6-5.0); SODIUM 139 MMOL/L (135-145)
--- NOTE | 2019-12-09 09:25 | ED General ---
General Chief Complaint: Abdominal/GI Problems Stated Complaint: L GROIN PAIN Source of Information: Patient Exam Limitations: No Limitations (IVY NUNN MD) History of Present Illness Date Seen by Provider: Dec 09, 2019 Time Seen by Provider: 08:59 Initial Comments Here with report of left groin pain that radiates down his leg. Worse with movement and palpation and better with rest and immobilization. Concerned that he has a hernia. Does have history of B-cell lymphoma and lung cancer. He has completed his treatments and believes things are okay at this point. Denies nausea, vomiting or diarrhea. Denies constipation or blood in his urine or stools. Denies fevers. States that he is having to use a cane to walk around. She has been going on for a couple weeks but worse over the last week and certainly worse since yesterday. Denies contact with COVID-19 or upper respiratory symptoms. Timing/Duration: Changing Over Time, Getting Worse Severity: Moderate Associated Systoms: No Chest Pain, No Cough, No Fever/Chills, No Nausea/Vomiting (IVY NUNN MD) Allergies and Home Medications Allergies Coded Allergies: codeine (Verified Allergy, Mild, RASH, PATIENT HAS HYDROCODONE AND OXYCODONE W/O ISSUE, 03/29/15) Home Medications Acetaminophen 650 Mg Tablet.er, 1,300 MG PO HS, (Reported) TAKES 2 (650MG) TABLETS Albuterol Sulfate 1 Puff Puff, 2 PUFF IH Q4H PRN for SHORTNESS OF BREATH, (Reported) Albuterol Sulfate 2.5 Mg/3 Ml Vial.neb, 2.5 MG NEB Q4H PRN for SHORTNESS OF BREATH, (Reported) Amoxicillin/Potassium Clav 1 Each Tablet, 1 EACH PO BID Prescribed by: CHIDI HYMAN on 03/22/19 1236 Aspirin 81 Mg Tablet.dr, 81 MG PO DAILY, (Reported) Cetirizine HCl 10 Mg Tablet, 10 MG PO DAILY, (Reported) Diltiazem HCl 360 Mg Cap.er.24h, 360 MG PO HS, (Reported) Duloxetine HCl 60 Mg Capsule.dr, 60 MG PO HS, (Reported) Fenofibrate,Micronized 134 Mg Capsule, 134 MG PO DAILY, (Reported) Fluticasone/Umeclidin/Vilanter 1 Each Blst.w.dev, 1 PUFF IH DAILY, (Reported) Furosemide 40 Mg Tablet, 40 MG PO DAILY Prescribed by: CHIDI HYMAN on 03/22/19 1236 Magnesium Oxide 400 Mg Capsule, 400 MG PO DAILY Prescribed by: CHIDI HYMAN on 03/22/19 1236 Metformin HCl 500 Mg Tab.er.24h, 1,000 MG PO BID, (Reported) TAKES 2 (500MG) TABLETS Metoprolol Succinate 100 Mg Tab.er.24h, 100 MG PO BID, (Reported) Montelukast Sodium 10 Mg Tablet, 10 MG PO HS, (Reported) Olmesartan Medoxomil 40 Mg Tablet, 40 MG PO DAILY, (Reported) Ondansetron HCl 8 Mg Tablet, 8 MG PO Q8H PRN for NAUSEA/VOMITING-1ST LINE, (Reported) Pantoprazole Sodium 20 Mg Tablet.dr, 20 MG PO DAILY, (Reported) Potassium Chloride 20 Meq Tab.er.prt, 20 MEQ PO DAILY Prescribed by: CHIDI HYMAN on 03/22/19 1236 Prednisone 20 Mg Tab, 20 MG PO DAILY Take 1 tablet daily for 3 days the 1/2 tablet daily for 4 days then stop Prescribed by: CHIDI HYMAN on 03/22/19 1236 Simvastatin 40 Mg Tablet, 40 MG PO HS, (Reported) Patient Home Medication List Home Medication List Reviewed: Yes (IVY NUNN MD) Review of Systems Review of Systems Constitutional: see HPI; No chills, No fever EENTM: no symptoms reported Respiratory: No cough; dyspnea on exertion (chronic); No short of breath Cardiovascular: No chest pain, No edema Gastrointestinal: abdominal pain (extreme left lower quadrant); No constipation, No nausea, No vomiting Genitourinary: No dysuria, No frequency, No hematuria Musculoskeletal: joint pain, muscle pain Skin: No change in color, No lesions Psychiatric/Neurological: Numbness (intermittent left foot numbness), Paresthesia (intermittent left leg and left foot) Hematologic/Lymphatic: No Symptoms Reported (IVY NUNN MD) All Other Systems Reviewed Negative Unless Noted: Yes (IVY NUNN MD) Past Ncwoapi-Jmhrqo-Qyccaf Hx Past Med/Social Hx: Reviewed Nursing Past Med/Soc Hx (IVY NUNN MD) Patient Social History Alcohol Use: Denies Use Recreational Drug Use: No Smoking Status: Former Smoker Type Used: Cigarettes Former Smoker, Quit: Feb 25, 1999 2nd Hand Smoke Exposure: Yes Recent Foreign Travel: No Contact w/Someone Who Travel: No Recent Hopitalizations: No (IVY NUNN MD) Immunizations Up To Date Tetanus Booster (TDap): Less than 5yrs Date of Pneumonia Vaccine: Mar 02, 2018 Date of Influenza Vaccine: Mar 03, 2019 (IVY NUNN MD) Seasonal Allergies Seasonal Allergies: Yes (IVY NUNN MD) Past Medical History Surgeries: Yes (LEFT ELBOW FX, CATARACTS AND TORN RETINA, RIGHT SHOULDER, L CTR) Respiratory: Yes Sleep Apnea, COPD Currently Using CPAP: No Cardiac: Yes High Cholesterol, Hypertension Neurological: Yes (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) Traumatic Brain Injury Sexually Transmitted Disease: No HIV/AIDS: No Genitourinary: No Gastrointestinal: No Gastroesophageal Reflux, Chronic Constipation Musculoskeletal: Yes Arthritis Endocrine: Yes Diabetes, Non-Insulin dep Cataract Hearing Impairment: Bilateral Hearing Aide Cancer: Yes Lymphoma Psychosocial: Yes Anxiety Integumentary: No Blood Disorders: No Adverse Reaction/Blood Tranf: No (IVY NUNN MD) Family Medical History Reviewed Nursing Family Hx (IVY NUNN MD) No Pertinent Family Hx (IVY NUNN MD) Physical Exam Vital Signs Vital Signs - First Documented 12/09/19 08:40 Temp 36.7 Pulse 55 Resp 20 B/P (MAP) 133/72 (92) Pulse Ox 97 O2 Delivery Room Air (EPHRAIM PHILLIPS) Vital Signs Capillary Refill : (IVY NUNN MD) Height, Weight, BMI Height: 6'0.00" Weight: 318lbs. 8.0oz. 146.085597rx; 42.36 BMI Method:Stated General Appearance: No Apparent Distress, WD/WN, Obese HEENT: PERRL/EOMI, Pharynx Normal Neck: Non Tender, Supple Respiratory: Lungs Clear, Normal Breath Sounds Cardiovascular: Regular Rate, Rhythm, No Murmur Gastrointestinal: Non Tender, Soft; No Distended, No Guarding Back: No CVA Tenderness, No Vertebral Tenderness Extremity: Normal Range of Motion, No Calf Tenderness, Other (pain exacerbated with movement or lifting of the left leg) Neurologic/Psychiatric: Alert, Oriented x3 Skin: Normal Color, Warm/Dry (IVY NUNN MD) Progress/Results/Core Measures Suspected Sepsis SIRS Temperature: Pulse: Respiratory Rate: Laboratory Tests 12/09/19 09:05: Blood Pressure / Mean: Laboratory Tests 12/09/19 09:05: (IVY NUNN MD) Results/Orders Lab Results Laboratory Tests Test 12/09/19 09:05 12/09/19 11:15 Range/Units White Blood Count 8.0 4.3-11.0 10^3/uL Red Blood Count 4.10 L 4.35-5.85 10^6/uL Hemoglobin 10.4 L 13.3-17.7 G/DL Hematocrit 33 L 40-54 % Mean Corpuscular Volume 81 80-99 FL Mean Corpuscular Hemoglobin 25 25-34 PG Mean Corpuscular Hemoglobin Concent 31 L 32-36 G/DL Red Cell Distribution Width 18.6 H 10.0-14.5 % Platelet Count 360 130-400 10^3/uL Mean Platelet Volume 9.5 7.4-10.4 FL Neutrophils (%) (Auto) 80 H 42-75 % Lymphocytes (%) (Auto) 7 L 12-44 % Monocytes (%) (Auto) 8 0-12 % Eosinophils (%) (Auto) 4 0-10 % Basophils (%) (Auto) 1 0-10 % Neutrophils # (Auto) 6.3 1.8-7.8 X 10^3 Lymphocytes # (Auto) 0.6 L 1.0-4.0 X 10^3 Monocytes # (Auto) 0.7 0.0-1.0 X 10^3 Eosinophils # (Auto) 0.3 0.0-0.3 10^3/uL Basophils # (Auto) 0.1 0.0-0.1 10^3/uL Neutrophils % (Manual) 86 % Lymphocytes % (Manual) 4 % Monocytes % (Manual) 8 % Eosinophils % (Manual) 1 % Basophils % (Manual) 0 % Band Neutrophils 1 % Hypochromasia SLIGHT Poikilocytosis SLIGHT Anisocytosis SLIGHT Target Cells SLIGHT Elliptocytes SLIGHT Sodium Level 139 135-145 MMOL/L Potassium Level 3.7 3.6-5.0 MMOL/L Chloride Level 101 98-107 MMOL/L Carbon Dioxide Level 24 21-32 MMOL/L Anion Gap 14 5-14 MMOL/L Blood Urea Nitrogen 15 7-18 MG/DL Creatinine 0.96 0.60-1.30 MG/DL Estimat Glomerular Filtration Rate > 60 BUN/Creatinine Ratio 16 Glucose Level 183 H 70-105 MG/DL Calcium Level 8.9 8.5-10.1 MG/DL Corrected Calcium 8.7 8.5-10.1 MG/DL Total Bilirubin 0.5 0.1-1.0 MG/DL Aspartate Amino Transf (AST/SGOT) 15 5-34 U/L Alanine Aminotransferase (ALT/SGPT) 20 0-55 U/L Alkaline Phosphatase 52 40-136 U/L C-Reactive Protein High Sensitivity 1.93 H 0.00-0.50 MG/DL Total Protein 6.5 6.4-8.2 GM/DL Albumin 4.2 3.2-4.5 GM/DL Urine Color YELLOW Urine Clarity CLEAR Urine pH 8.0 5-9 Urine Specific [place] 1.010 L 1.016-1.022 Urine Protein NEGATIVE NEGATIVE Urine Glucose (UA) NEGATIVE NEGATIVE Urine Ketones NEGATIVE NEGATIVE Urine Nitrite NEGATIVE NEGATIVE Urine Bilirubin NEGATIVE NEGATIVE Urine Urobilinogen 1.0 < = 1.0 MG/DL Urine Leukocyte Esterase NEGATIVE NEGATIVE Urine RBC (Auto) NEGATIVE NEGATIVE Urine RBC RARE /HPF Urine WBC 0-2 /HPF Urine Squamous Epithelial Cells 5-10 /HPF Urine Crystals NONE /LPF Urine Bacteria NEGATIVE /HPF Urine Casts NONE /LPF Urine Mucus NEGATIVE /LPF Urine Culture Indicated NO (EPHRAIM PHILLIPS) Medications Given in ED Current Medications Medications Dose Ordered Sig/Evgeny Route Start Time Stop Time Status Last Admin Dose Admin Iohexol 100 ml ONCE ONCE IV 12/09/19 10:15 12/09/19 10:16 DC 12/09/19 10:34 100 ML Sodium Chloride 10 ml NEEDED PRN IV 12/09/19 10:15 12/09/19 10:34 10 ML Sodium Chloride 100 ml ONCE ONCE IV 12/09/19 10:15 12/09/19 10:16 DC 12/09/19 10:34 80 ML Sodium Chloride 500 ml @ 0 mls/hr Q0M ONCE IV 12/09/19 09:04 12/09/19 09:05 DC 12/09/19 09:15 500 MLS/HR (EPHRAIM PHILLIPS) Vital Signs/I&O 12/09/19 08:40 Temp 36.7 Pulse 55 Resp 20 B/P (MAP) 133/72 (92) Pulse Ox 97 O2 Delivery Room Air (EPHRAIM PHILLIPS HARSHAL) Vital Signs/I&O Capillary Refill : (IVY NUNN MD) Progress Note : Progress Note Seen and evaluated. IV, labs, fentanyl 50 g IV and normal saline 500 mL bolus. Anticipate CT scan to evaluate for structural issues and masses. Patient does have history of lymphoma with previous markedly enlarged iliac chain lymph nodes and also has history of lung cancer. We will await results of chemistries to determine type of CT scan. This was discussed with the patient who agrees. Monitor patient. (IVY NUNN MD) Diagnostic Imaging Diagonstic Imaging: CT Plain Films/CT/US/NM/MRI: abdomen, pelvis Comments NAME: IRLANDA [facility]ETER [facility] REC#: [id number] PT STATUS: REG ER : 1950 PHYSICIAN: IVY NUNN MD ADMIT DATE: 12/09/19/ER Draft Date of Exam:12/09/19 CT ABDOMEN/PELVIS W EXAMINATION: CT Abdomen and Pelvis with intravenous contrast. TECHNIQUE: Multiple contiguous axial images were obtained through the abdomen and pelvis after the uneventful administration of intravenous contrast. All CT scans use one or more of the following dose optimizing techniques: automated exposure control, MA and/or KvP adjustment based on a patient size and exam type, or iterative reconstruction. HISTORY: Left-sided abdominal pain. COMPARISON: 12/22/2017. FINDINGS: Limited views of the lower thorax show coronary artery calcifications. Liver is steatotic. No focal liver lesions are seen. There is no biliary ductal dilation. Gallbladder is normal. Pancreas is normal. Spleen is normal. Adrenal glands are normal. There is a 3.7 x 2.7 cm cystic lesion in the interpolar zone of the left kidney with internal calcifications. This is similar in size to 12/22/2017. There is no hydronephrosis. Urinary bladder is normal. Visualized bowel is normal in caliber without obstruction or inflammation. No free fluid or air. No abdominal or pelvic lymphadenopathy. Aorta is normal in caliber without aneurysm. There are no suspicious osseus lesions. IMPRESSION: 1. Steatotic liver. 2. Indeterminate cystic lesion with internal calcifications in the left kidney, similar in size to 2018 exam. It appears more complex than on the prior exam and a six-month follow-up renal protocol CT is recommended. Dictated on workstation # [id number] Dict: 12/09/19 1050 Trans: 12/09/19 1057 [facility] [id number] Interpreted by: PILI IRVIN MD Electronically signed by: (EPHRAIM PHILLIPS) Departure Impression Primary Impression: Sciatica Qualified Codes: M54.32 - Sciatica, left side Additional Impression: Left hip pain Disposition: HOME, SELF-CARE Condition: Improved Departure-Patient Inst. Decision time for Depature: 11:40 (EPHRAIM PHILLIPS) Referrals: CHIDI HYMAN DO (PCP/Family) Primary Care Physician Patient Instructions: Hip Pain (DC), Sciatica (DC) Add. Discharge Instructions: Follow-up with Dr. Hyman early next week if symptoms are not improving or they worsen. Take medications, as prescribed. You need follow up CT of abdomen in 6 months, see Dr. Hyman for this. Alternate heat and ice on your low back and left hip. Activity as tolerated. You may use Biofreeze or Icee Hot on your back and hip for symptoms. Return to the emergency department for new, urgent health care needs. All discharge instructions reviewed with patient and/or family. Voiced understanding. Scripts Hydrocodone/Acetaminophen (Hydrocodone-Acetamin 5-325 mg) 1 Each Tablet 1 EACH PO Q8H, #15 TAB 0 Refills Prov: EPHRAIM PHILLIPS 12/09/19 Prednisone (Prednisone) 20 Mg Tab 40 MG PO DAILY, #8 TAB 0 Refills Prov: EPHRAIM PHILLIPS 12/09/19 Copy Copies To 1: CHIDI HYMAN TIMOTHY D MD Dec 09, 2019 09:25 EPHRAIM PHILLIPS Dec 09, 2019 11:28
--- OUTSIDE RECORDS SUMMARY | 2019-12-09 09:25 | XMS REPORT | CCD ---
Author Author Michael Hyman D.O. Organization [facility] Address [address] [place] [address] Phone Care Team Providers Care Applications Project Manager Name Role Phone Neela Hyman D.O., PP Unavailable CCM Unavailable Summary Purpose Interface Exchange Insurance Providers Payer name Policy type / Coverage type Covered libertarian ID Effective Begin Date Effective End Date ABS FOR [employer] Commercial Insurance [id number] Unknown Family History Family History data not found Social History Social History Element Codes Description Effective Dates Marital status Unknown 05/30/[address]: 4567077 Former smoker quit 25 years ago 01/01/2011 [...] 400 mg (241.3 mg magnesium) tablet RxNorm: 439093 1 Table t(s) Oral QD 04/26/2019 06/24/2019 Active Lasix 40 mg tablet RxNorm: 094205 40 MG PO DAILY 04/12/2019 No Stop Da te Active Benicar 40 mg tablet RxNorm: 422542 1 Tablet(s) Oral QD 03/29/2019 Active potassium chloride ER 20 mEq tablet,extended release RxNorm: 371441 1 Tablet(s) Oral two times a day 03/29/2019 06/27/2019 Active metformin 500 mg tablet RxNorm: 730332 2 Tablet(s) Oral two afshan es a day 03/29/2019 No Stop Date Active potassium chloride ER 20 mEq tablet,extended release RxNorm: 987041 1 Tablet(s) Oral QD 03/29/2019 03/28/2019 Inactive Benicar 40 mg tablet RxNorm: 214676 1 Tablet(s) Oral QD 03/29/2019 Inactive MagOx 400 mg (241.3 mg magnesium) tablet RxNorm: 572359 1 Table t(s) Oral QD 03/29/2019 04/25/2019 Inactive fenofibrate micronized 134 mg capsule RxNorm: 532622 TA KE ONE CAPSULE BY MOUTH EVERY DAY 03/05/2019 08/31/2019 Active duloxetine 60 mg capsule,delayed release RxNorm: 221983 1 Capsu le(s) PO QD 01/28/2019 07/26/2019 Active Trelegy Ellipta 100 mcg-62.5 mcg-25 mcg powder for inhalatio n RxNorm: 4135733 1 Puff(s) INH QD 01/06/2019 12/31/2019 Active 90 day supply prednisone 20 mg tablet RxNorm: 762539 1 Tablet(s) PO T ID for 3 days then 1 po BID for 3 days then 1 po daily for 3 days 01/05/2019 03/28/2019 Inacti ve metformin ER 1,000 mg tablet,extended release 24hr RxNorm: 1 763020 TAKE TWO TABLETS (1000MG) BY MOUTH TWO TIMES A DAY 12/22/2018 03/28/2019 Inacti ve Diflucan 100 mg tablet RxNorm: 094685 1 Tablet(s) PO QD 12/09/2018 Inactive albuterol sulfate 2.5 mg/3 mL (0.083 %) solution for n ebulization RxNorm: 586999 3 Milliliter(s) INH ONE VIAL VIA NEBULIZER EVERY 4 HOURS 019 07/21/2019 Active [AttnRPh: Saving apply/adjudicate RxGRP: SG20 RxBIN:[id number] RxPCN: ID#:[id number]] prednisone 20 mg tablet RxNorm: 011482 1 Tablet(s) PO B ID for 4 days then 1 po daily for 4 days 11/24/2018 01/04/2019 Inactive Trelegy Ellipta 100 mcg-62.5 mcg-25 mcg powder for inhalatio n RxNorm: 5146721 1 Puff(s) INH QD 10/27/2018 01/06/2019 Inactive 90 day supply diltiazem ER 360 mg capsule,24 hr,extended release RxNorm: 8 12706 TAKE ONE CAPSULE BY MOUTH AT BEDTIME -REPLACES 300MG 10/13/2018 04/10/2019 Inactive metoprolol succinate ER 100 mg tablet,extended release 24 hr RxNorm: 196994 TAKE ONE TABLET BY MOUTH TWICE A DAY 10/13/2018 07/09/2019 Active Trelegy Ellipta 100 mcg-62.5 mcg-25 mcg powder for inhalatio n RxNorm: 4688676 INHALE ONE PUFF ONCE DAILY 09/07/2018 10/27/2018 Inactive Levaquin 750 mg tablet RxNorm: 979829 1 Tablet(s) PO QD 09/07/2018 Inactive Levaquin 750 mg tablet RxNorm: 158283 1 Tablet(s) PO QD 09/07/2018 Inactive prednisone 20 mg tablet RxNorm: 509118 2 Tablet(s) PO QAM 08/13/2018 08/19/2018 Inactive Levaquin 500 mg tablet RxNorm: 850595 1 Tablet(s) PO QD 08/11/2018 Inactive fenofibrate micronized 134 mg capsule RxNorm: 275417 TA KE ONE CAPSULE BY MOUTH EVERY DAY 08/10/2018 02/05/2019 Inactive prednisone 20 mg tablet RxNorm: 825579 1 Tablet(s) PO BID 07/16/2018 07/20/2018 Inactive doxycycline hyclate 100 mg capsule RxNorm: 6370814 1 Capsule(s) PO BID 07/13/2018 07/22/2018 Inactive duloxetine 60 mg capsule,delayed release RxNorm: 150581 TAKE ONE CAPSULE BY MOUTH ONCE A DAY 07/08/2018 01/28/2019 Inactive Lasix 40 mg tablet RxNorm: 682716 1 TABLET(S) PO QAM 06/08/201809/05 Inactive potassium chloride ER 20 mEq tablet,extended release(p art/cryst) RxNorm: 5380295 1 TABLET(S) PO QD 06/08/2018 09/05/2018 Inactive metformin ER 1,000 mg tablet,extended release 24hr RxNorm: 1 929845 TAKE TWO TABLETS (1000MG) BY MOUTH TWO TIMES A DAY 06/01/2018 11/27/2018 Inacti ve Zocor 40 mg tablet RxNorm: 567700 TAKE ONE TABLET BY M OUTH EVERY NIGHT AT BEDTIME 05/11/2018 08/03/2019 Active Benicar HCT 40 mg-25 mg tablet RxNorm: 645717 TAKE ONE TABLET BY MOUTH ONCE DAILY 05/11/2018 03/28/2019 Inactive Trelegy Ellipta 100 mcg-62.5 mcg-25 mcg powder for inhalatio n RxNorm: 5116364 1 PUFF(S) INH QD 04/06/2018 07/04/2018 Inactive diltiazem ER 360 mg capsule,24 hr,extended release RxNorm: 8 19124 1 Capsule(s) PO QHS replaces 300mg dose 03/30/2018 09/25/2018 Inactive Trelegy Ellipta 100 mcg-62.5 mcg-25 mcg powder for inhalatio n RxNorm: 8805163 1 Puff(s) INH QD 02/24/2018 02/23/2018 Inactive Trelegy Ellipta 100 mcg-62.5 mcg-25 mcg powder for inhalatio n RxNorm: 3505277 1 Puff(s) INH QD 02/24/2018 02/23/2018 Inactive Trelegy Ellipta 100 mcg-62.5 mcg-25 mcg powder for inhalatio n RxNorm: 4954624 1 Puff(s) INH QD 02/24/2018 04/05/2018 Inactive Lasix 40 mg tablet RxNorm: 077990 1 Tablet(s) PO QAM 02/10/201803/11 Inactive potassium chloride ER 20 mEq tablet,extended release(p art/cryst) RxNorm: 3755191 1 Tablet(s) PO QD 02/10/2018 03/11/2018 Inactive fenofibrate micronized 134 mg capsule RxNorm: 331645 1 Capsule( s) PO QD 01/30/2018 07/28/2018 Inactive metoprolol succinate ER 100 mg tablet,extended release 24 hr RxNorm: 827451 TAKE ONE TABLET BY MOUTH TWICE A DAY 12/30/2017 09/25/2018 Inactive metformin ER 1,000 mg tablet,extended release 24hr RxNorm: 1 170426 1 Tablet(s) PO BID 11/17/2017 05/15/2018 Inactive [SAVINGS FOR NON -COVERED DRUGS -- BIN:907983, PCN: ASPROD1, Group: XXXXX, ID# [id number], Questions: . THIS IS NOT INSURANCE.] Benicar HCT 40 mg-25 mg tablet RxNorm: 821817 1 Tablet(s) PO QD 05/10/2018 Inactive [SAVINGS FOR NON-COVERED JESU GS -- BIN:416346, PCN: ASPROD1, Group: XXXXX, ID# [id number], Questions: . THIS IS NOT INSURANCE.] Bactroban 2 % topical cream RxNorm: 262330 Application TOP BID 10/2409/02/2018 Inactive clindamycin HCl 300 mg capsule RxNorm: 198524 2 Capsule(s) PO TID 0 11/05/2017 11/18/2017 Inactive duloxetine 60 mg capsule,delayed release RxNorm: 721898 Capsule(s) TAKE ONE CAPSULE BY MOUTH ONCE DAILY 09/24/2017 09/23/2017 Inactive triamcinolone acetonide 0.1 % topical ointment RxNorm: 4843181 1 TOP BID 09/09/2017 11/04/2017 Inactive Bactrim DS 800 mg-160 mg tablet RxNorm: 819814 1 Tablet(s) PO BID 0 08/07/2017 08/13/2017 Inactive metronidazole 500 mg tablet RxNorm: 418631 1 Tablet(s) PO BID 08/0708/13/2017 Inactive diltiazem ER 360 mg capsule,24 hr,extended release RxNorm: 8 66923 1 Capsule(s) PO QHS replaces 300mg dose 08/04/2017 01/30/2018 Inactive fenofibrate micronized 134 mg capsule RxNorm: 206824 1 Capsule( s) PO QD 07/21/2017 01/30/2018 Inactive Zocor 40 mg tablet RxNorm: 993171 1 Tablet(s) PO QHS 07/21/201705/10 Inactive GB duloxetine 60 mg capsule,delayed release RxNorm: 637569 Capsule(s) TAKE ONE CAPSULE BY MOUTH ONCE DAILY 06/24/2017 09/24/2017 Inactive Cleocin HCl 300 mg capsule RxNorm: 878298 2 Capsule(s) PO BID 06/0206/08/2017 Inactive acyclovir 800 mg tablet RxNorm: 771942 1 Tablet(s) PO 5x day 201706/08/2017 Inactive diltiazem ER 300 mg capsule,24 hr,extended release RxNorm: 8 54311 1 Capsule(s) PO QHS replaces 240mg dose 05/05/2017 08/03/2017 Inactive ipratropium-albuterol 0.5 mg-3 mg(2.5 mg base)/3 mL ne bulization soln RxNorm: 2967504 1 Unit Dose INH Q4H as needed 05/05/2017 01/04/2019 Inactive metformin ER 1,000 mg tablet,extended release 24hr RxNorm: 1 276382 1 Tablet(s) PO BID 04/28/2017 11/17/2017 Inactive [SAVINGS FOR NON -COVERED DRUGS -- BIN:674266, PCN: ASPROD1, Group: XXXXX, ID# [id number], Questions: . THIS IS NOT INSURANCE.] diltiazem ER (XR/XT) 240 mg capsule,extended release 2 4 hr, controlled RxNorm: 993872 TAKE ONE CAPSULE BY MOUTH EVERY DAY 04/15/2017 05/04/2017 Inact avani prednisone 20 mg tablet RxNorm: 607437 1 Tablet(s) PO QD 04/10/2017 1 06/14/2016 Inactive Breo Ellipta 200 mcg-25 mcg/dose powder for inhalation RxNor m: 1479587 1 Puff(s) INH QD 04/10/2017 02/09/2018 Inactive Breo Ellipta 200 mcg-25 mcg/dose powder for inhalation RxNor m: 3105896 1 Puff(s) INH QD 04/10/2017 04/09/2017 Inactive Levaquin 500 mg tablet RxNorm: 264234 1 Tablet(s) PO QD 04/10/2017 Inactive metoprolol succinate ER 100 mg tablet,extended release 24 hr RxNorm: 775719 TAKE ONE TABLET BY MOUTH TWICE A DAY 03/24/2017 12/18/2017 Inactive fenofibrate micronized 134 mg capsule RxNorm: 108608 1 Capsule( s) PO QD 01/16/2017 07/21/2017 Inactive Benicar HCT 40 mg-25 mg tablet RxNorm: 990455 1 Tablet(s) PO QD 11/17/2017 Inactive [SAVINGS FOR NON-COVERED JESU GS -- BIN:830093, PCN: ASPROD1, Group: XXXXX, ID# [id number], Questions: . THIS IS NOT INSURANCE.] metoprolol succinate ER 100 mg tablet,extended release 24 hr RxNorm: 164399 1 Tablet(s) PO BID 10/16/2016 03/23/2017 Inactive diltiazem ER (XR/XT) 240 mg capsule,extended release 2 4 hr, controlled RxNorm: 700795 1 Capsule(s) PO QD 10/16/2016 04/13/2017 Inactive [SAVINGS FOR NON- COVERED DRUGS -- BIN:331253, PCN: ASPROD1, Group: XXXXX, ID# [id number], Questions: . THIS IS NOT INSURANCE.] metformin ER 1,000 mg tablet,extended release 24hr RxNorm: 8 76143 1 Tablet(s) PO BID 10/16/2016 04/28/2017 Inactive [SAVINGS FOR NON -COVERED DRUGS -- BIN:292529, PCN: ASPROD1, Group: XXXXX, ID# [id number], Questions: . THIS IS NOT INSURANCE.] Zocor 40 mg tablet RxNorm: 446228 1 Tablet(s) PO QHS 10/16/201607/21 Inactive GB Singulair 10 mg tablet RxNorm: 133412 Tablet(s) 1 TABLET(S) PO QHS 08/27/2016 09/02/2018 Inactive prednisone 20 mg tablet RxNorm: 797916 1 Tablet(s) PO QD 08/27/2016 0 08/31/2016 Inactive ipratropium-albuterol 0.5 mg-3 mg(2.5 mg base)/3 mL ne bulization soln RxNorm: 7806385 1 Unit Dose INH Q4H as needed 08/27/2016 05/04/2017 Inactive metoprolol succinate ER 100 mg tablet,extended release 24 hr RxNorm: 297600 TAKE ONE TABLET BY MOUTH TWICE A DAY 08/05/2016 10/16/2016 Inactive duloxetine 60 mg capsule,delayed release RxNorm: 709059 TAKE ONE CAPSULE BY MOUTH ONCE DAILY 08/05/2016 06/24/2017 Inactive prednisone 20 mg tablet RxNorm: 648518 1 Tablet(s) PO QD 06/14/2016 0 06/18/2016 Inactive ipratropium-albuterol 0.5 mg-3 mg(2.5 mg base)/3 mL ne bulization soln RxNorm: 5949210 1 Unit Dose INH Q4H as needed 06/13/2016 08/26/2016 Inactive Levaquin 500 mg tablet RxNorm: 438693 1 Tablet(s) PO QD 06/13/2016 Inactive metoprolol succinate ER 100 mg tablet,extended release 24 hr RxNorm: 843819 1 Tablet(s) PO BID replaces 50mg dose 05/14/2016 07/12/2016 Inactive metoprolol succinate ER 50 mg tablet,extended release 24 hr RxNorm: 527691 1 Tablet(s) PO BID 04/29/2016 05/13/2016 Inactive prednisone 20 mg tablet RxNorm: 412929 1 Tablet(s) PO BID 04/22/2016 04/21/2016 Inactive prednisone 20 mg tablet RxNorm: 989909 1 Tablet(s) PO BID 04/22/2016 04/28/2016 Inactive Singulair 10 mg tablet RxNorm: 863186 Tablet(s) 1 TABLET(S) PO QHS 04/01/2016 08/26/2016 Inactive metoprolol succinate ER 25 mg tablet,extended release 24 hr RxNorm: 769084 1 Tablet(s) PO QHS for blood pressure 04/01/2016 05/13/2016 Inactive fenofibrate micronized 134 mg capsule RxNorm: 362667 TA KE ONE CAPSULE BY MOUTH DAILY 01/25/2016 01/16/2017 Inactive duloxetine 60 mg capsule,delayed release RxNorm: 054633 TAKE ONE CAPSULE BY MOUTH ONCE DAILY 01/25/2016 08/04/2016 Inactive Zocor 40 mg tablet RxNorm: 694049 TAKE ONE TABLET BY MOUTH AT B EDTIME 11/13/2015 10/16/2016 Inactive GB metformin ER 1,000 mg tablet,extended release 24hr RxNorm: 8 17463 1 Tablet(s) PO BID 10/26/2015 10/16/2016 Inactive [SAVINGS FOR NON -COVERED DRUGS -- BIN:835228, PCN: ASPROD1, Group: XXXXX, ID# [id number], Questions: . THIS IS NOT INSURANCE.] Benicar HCT 40 mg-25 mg tablet RxNorm: 397109 1 Tablet(s) PO QD 06/201511/11/2016 Inactive [SAVINGS FOR NON-COVERED JESU GS -- BIN:640434, PCN: ASPROD1, Group: XXXXX, ID# [id number], Questions: . THIS IS NOT INSURANCE.] diltiazem ER (XR/XT) 240 mg capsule,extended release,control led RxNorm: 876353 1 Capsule(s) PO QD 10/26/2015 10/15/2016 Inactive [SAVINGS FOR NO N-COVERED DRUGS -- BIN:739874, PCN: ASPROD1, Group: XXXXX, ID# [id number], Questions: . THIS IS NOT INSURANCE.] Singulair 10 mg tablet RxNorm: 454993 1 TABLET(S) PO QHS 09/18/2015 1 05/31/2015 Inactive Viagra 100 mg tablet RxNorm: 270315 1 Tablet(s) PO as needed 201511/23/2018 Inactive Singulair 10 mg tablet RxNorm: 152932 1 Tablet(s) PO QHS 08/16/2015 0 08/15/2015 Inactive Singulair 10 mg tablet RxNorm: 867404 1 Tablet(s) PO QHS 08/16/2015 0 09/14/2015 Inactive duloxetine 60 mg capsule,delayed release RxNorm: 056043 1 Capsule(s) PO QD replaces fluoxetine 08/14/2015 01/24/2016 Inactive ipratropium-albuterol 0.5 mg-3 mg(2.5 mg base)/3 mL ne bulization soln RxNorm: 1927119 1 Unit Dose INH Q4H as needed 08/14/2015 06/12/2016 Inactive prednisone 20 mg tablet RxNorm: 965402 Take 3 tabs PO o nce daily x 3 days, then 2 tabs PO once daily x 3 days and then 1 tab PO once daily x 3 days 08/09/2015 08/13/2015 Inactive Symbicort 160 mcg-4.5 mcg/actuation HFA aerosol inhaler RxNo rm: 5396681 2 Puff(s) INH BID 08/09/2015 08/13/2015 Inactive Zocor 40 mg tablet RxNorm: 738052 1 Tablet(s) PO QHS 05/23/201511/11 Inactive [AttnRPh: Saving apply/adjudicate RxGRP: SG20 RxBIN:[id number] RxPCN: ID#:[id number]] Benicar HCT 40 mg-25 mg tablet RxNorm: 367418 1 Tablet(s) PO QD 10/26/2015 Inactive [SAVINGS FOR NON-COVERED JESU GS -- BIN:261658, PCN: ASPROD1, Group: XXXXX, ID# [id number], Questions: . THIS IS NOT INSURANCE.] diltiazem ER (XR/XT) 240 mg capsule,extended release,control led RxNorm: 914099 1 Capsule(s) PO QD 04/24/2015 10/20/2015 Inactive [SAVINGS FOR NO N-COVERED DRUGS -- BIN:717041, PCN: ASPROD1, Group: XXXXX, ID# [id number], Questions: . THIS IS NOT INSURANCE.] fluoxetine 40 mg capsule RxNorm: 623288 1 Capsule(s) PO QD 04/24/20 15 08/13/2015 Inactive [SAVINGS FOR NON-COVERED JESU GS -- BIN:261928, PCN: ASPROD1, Group: XXXXX, ID# [id number], Questions: . THIS IS NOT INSURANCE.] Zocor 40 mg tablet RxNorm: 373359 TABLET(S) 1 TABLET(S) PO QHS 01/2505/23/2015 Inactive [AttnRPh: Saving apply/adjud icate RxGRP:SG20 RxBIN:[id number] RxPCN: ID#:[id number]] metformin ER 1,000 mg tablet,extended release 24hr RxNorm: 8 16281 1 TABLET(S) PO BID 01/29/2015 10/26/2015 Inactive [SAVINGS FOR NON -COVERED DRUGS -- BIN:112907, PCN: ASPROD1, Group: XXXXX, ID# [id number], Questions: . THIS IS NOT INSURANCE.] fenofibrate micronized 134 mg capsule RxNorm: 692736 1 CAPSULE( S) PO QD 01/23/2015 01/17/2016 Inactive fenofibrate micronized 134 mg capsule RxNorm: 407911 1 Capsule( s) PO QD 11/07/2014 01/22/2015 Inactive diltiazem ER (XR/XT) 240 mg capsule,extended release,control led RxNorm: 893674 1 Capsule(s) PO QD 10/24/2014 04/24/2015 Inactive [SAVINGS FOR NO N-COVERED DRUGS -- BIN:821444, PCN: ASPROD1, Group: XXXXX, ID# [id number], Questions: . THIS IS NOT INSURANCE.] Benicar HCT 40 mg-25 mg tablet RxNorm: 017871 1 Tablet(s) PO QD 05/201404/24/2015 Inactive [SAVINGS FOR NON-COVERED JESU GS -- BIN:750270, PCN: ASPROD1, Group: XXXXX, ID# [id number], Questions: . THIS IS NOT INSURANCE.] fluoxetine 40 mg capsule RxNorm: 131288 1 Capsule(s) PO QD 10/25/19 15 04/24/2015 Inactive [SAVINGS FOR NON-COVERED JESU GS -- BIN:312838, PCN: ASPROD1, Group: XXXXX, ID# [id number], Questions: . THIS IS NOT INSURANCE.] azithromycin 500 mg tablet RxNorm: 141741 1 Tablet(s) PO QD 015 09/27/2014 Inactive [SAVINGS FOR NON-COVERED JESU GS -- BIN:537132, PCN: ASPROD1, Group: XXXXX, ID# XXXXXXX, Questions: . THIS IS NOT INSURANCE.] albuterol sulfate 2.5 mg/3 mL (0.083 %) solution for n ebulization RxNorm: 627343 3 Milliliter(s) INH ONE VIAL VIA NEBULIZER EVERY 4 HOURS 015 11/19/2014 Inactive [AttnRPh: Saving apply/adjudicate RxGRP: SG20 RxBIN:[id number] RxPCN: ID#:[id number]] Zocor 40 mg tablet RxNorm: 201576 TABLET(S) 1 TABLET(S ) PO QHS 1 TABLET(S) PO QHS 09/04/2014 02/21/2015 Inactive [AttnRPh: Saving apply/adjudicate RxGRP:SG20 RxBIN:[id number] RxPCN: ID#:[id number]] metformin ER 1,000 mg tablet,extended release 24hr RxNorm: 8 65673 1 Tablet(s) PO BID 08/04/2014 01/28/2015 Inactive [SAVINGS FOR NON -COVERED DRUGS -- BIN:728837, PCN: ASPROD1, Group: XXXXX, ID# XXXXXXX, Questions: . THIS IS NOT INSURANCE.] Bromfed DM 2 mg-30 mg-10 mg/5 mL syrup RxNorm: 7649743 1 -2 Teaspoon(s) PO Q4H as needed for cough 06/10/2014 06/19/2014 Inactive [SAVINGS FOR UN INSURED PATIENTS -- BIN:091070, PCN: ASPROD1, Group: AME08, ID# [id number], Process claim through [employer], for questions: . THIS IS NOT INSURANCE.] Augmentin 875 mg-125 mg tablet RxNorm: 519829 1 Tablet(s) PO Q12H 0 06/10/2014 06/19/2014 Inactive [AttnRPh: Saving apply/adjud icate RxGRP:SG20 RxBIN:[id number] RxPCN:HT ID#:[id number]] Zocor 40 mg tablet RxNorm: 804831 Tablet(s) 1 TABLET(S ) PO QHS 1 TABLET(S) PO QHS 05/25/2014 08/22/2014 Inactive [AttnRPh: Saving apply/adjudicate RxGRP:SG20 RxBIN:[id number] RxPCN:HT ID#:[id number]] fluoxetine 40 mg capsule RxNorm: 358177 1 Capsule(s) PO QD 04/29/20 14 10/24/2014 Inactive [AttnRPh: Saving apply/adjud icate RxGRP:SG20 RxBIN:[id number] RxPCN:HT ID#:[id number]] diltiazem ER (XR/XT) 240 mg capsule,extended release,control led RxNorm: 377757 1 Capsule(s) PO QD 04/29/2014 10/24/2014 Inactive [AttnRPh: Savin g apply/adjudicate RxGRP:SG20 RxBIN:[id number] RxPCN:HT ID#:[id number]] Benicar HCT 40 mg-25 mg tablet RxNorm: 344909 1 Tablet(s) PO QD 09/201310/24/2014 Inactive [AttnRPh: Saving apply/adjud icate RxGRP:SG20 RxBIN:[id number] RxPCN:HT ID#:[id number]] Zocor 40 mg tablet RxNorm: 899071 1 TABLET(S) PO QHS 1 TABLET(S ) PO QHS 03/07/2014 05/25/2014 Inactive [AttnRPh: Saving chelsie ly/adjudicate RxGRP:SG20 RxBIN:[id number] RxPCN:HT ID#:[id number]] Zocor 40 mg tablet RxNorm: 568318 1 Tablet(s) PO QHS 1 TABLET(S ) PO QHS 12/06/2013 03/05/2014 Inactive [AttnRPh: Saving chelsie ly/adjudicate RxGRP:SG20 RxBIN:[id number] RxPCN:HT ID#:[id number]] diltiazem ER (XR/XT) 240 mg capsule,extended release,control led RxNorm: 607188 1 Capsule(s) PO QD 10/25/2013 04/22/2014 Inactive [AttnRPh: Savin g apply/adjudicate RxGRP:SG20 RxBIN:[id number] RxPCN:HT ID#:[id number]] fluoxetine 40 mg capsule RxNorm: 543383 1 Capsule(s) PO QD 10/26/19 14 04/22/2014 Inactive [AttnRPh: Saving apply/adjud icate RxGRP:SG20 RxBIN:[id number] RxPCN:HT ID#:[id number]] Zocor 40 mg tablet RxNorm: 623359 1 Tablet(s) PO QHS 1 TABLET(S ) PO QHS 09/13/2013 12/06/2013 Inactive metformin ER 1,000 mg tablet,extended release 24hr RxNorm: 8 28119 Tablet(s) PO TAKE 1 TABLET BY MOUTH TWICE DAILY (REPLACES 500MG DOSE) 07/26/201303/2015 Inactive diltiazem ER (XR/XT) 240 mg capsule,extended release,control led RxNorm: 860574 1 Capsule(s) PO QD 05/03/2013 10/25/2013 Inactive fluoxetine 40 mg capsule RxNorm: 675539 1 Capsule(s) PO QD 05/03/20 13 10/25/2013 Inactive Benicar HCT 40 mg-25 mg tablet RxNorm: 203111 1 Tablet(s) PO QD 01/201304/29/2014 Inactive Zocor 40 mg tablet RxNorm: 832175 1 Tablet(s) PO QHS 12/10/201209/13 Inactive fluoxetine 40 mg capsule RxNorm: 931136 1 Capsule(s) PO QD 11/10/19 13 05/03/2013 Inactive diltiazem ER (XR/XT) 240 mg capsule,extended release,control led RxNorm: 958349 1 Capsule(s) PO QD 11/09/2012 05/03/2013 Inactive Benicar HCT 40 mg-25 mg tablet RxNorm: 469464 1 Tablet(s) PO QD 05/03/2013 Inactive metformin ER 1,000 mg tablet,extended release 24hr RxNorm: 8 23839 Tablet(s) PO TAKE 1 TABLET BY MOUTH TWICE DAILY (REPLACES 500MG DOSE) 08/05/201206/2013 Inactive Zocor 40 mg tablet RxNorm: 076224 1 Tablet(s) PO QHS 06/15/201212/09 Inactive fluoxetine 40 mg capsule RxNorm: 637072 1 Capsule(s) PO QD 05/15/20 12 11/08/2012 Inactive Neurontin 600 mg Tab RxNorm: 439968 1 Tablet(s) PO QHS 12/03/2011 Inactive metformin ER 1,000 mg tablet,extended release 24hr RxNorm: 8 73396 1 Tablet(s) PO BID replaces 500mg dose 12/03/2011 07/26/2013 Inactive Zocor 40 mg tablet RxNorm: 593358 1 Tablet(s) PO QHS 12/03/201106/15 Inactive fluoxetine 20 mg capsule RxNorm: 965327 1 Capsule(s) PO QD 12/03/19 12 05/24/2012 Inactive diltiazem ER (XR/XT) 240 mg capsule,extended release,control led RxNorm: 171860 1 Capsule(s) PO QD 11/15/2011 11/09/2012 Inactive Benicar HCT 40 mg-25 mg tablet RxNorm: 849972 1 Tablet(s) PO QD 02/16/2012 Inactive metformin ER 500 mg 24 hr Tab RxNorm: 540832 1 Tablet(s) PO BID 12/02/2011 Inactive Zocor 40 mg Tab RxNorm: 491866 1 Tablet(s) PO QHS 05/30/2011 11/25/19 12 Inactive fluoxetine 20 mg Cap RxNorm: 647585 1 Capsule(s) PO QD 05/28/2011 Inactive Neurontin 600 mg Tab RxNorm: 433642 1 Tablet(s) PO QHS 05/28/2011 Inactive Neurontin 600 mg Tab RxNorm: 506577 1 Tablet(s) PO QHS 02/22/201106/2011 Inactive Neurontin 600 mg Tab RxNorm: 398970 1 Tablet(s) PO QHS 01/14/2011 Inactive Neurontin 300 mg Cap RxNorm: 087937 1 Capsule(s) PO QHS 01/14/2011 Inactive Neurontin 600 mg Tab RxNorm: 005950 1 Tablet(s) PO QHS 01/14/2011 Inactive Medrol (Vipul) 4 mg Tabs in a Dose Pack RxNorm: 713157 Tablet(s) PO 0 01/02/2011 08/28/2011 Inactive as directed fluoxetine 20 mg Cap RxNorm: 673745 1 Capsule(s) PO QD 12/10/201006/2011 Inactive Zocor 40 mg Tab RxNorm: 508878 1 Tablet(s) PO QHS 12/03/2010 05/29/19 12 Inactive Neurontin 300 mg Cap RxNorm: 477609 1 Capsule(s) PO QHS 12/03/2010 Inactive Septra DS 800 mg-160 mg Tab RxNorm: 745427 1 Tablet(s) PO BID 11/2912/08/2010 Inactive diltiazem ER (XR/XT) 240 mg Continuous Release Cap RxNorm: 8 73787 1 Capsule(s) PO QD 11/20/2010 11/15/2011 Inactive Neurontin 300 mg Cap RxNorm: 947104 1 Capsule(s) PO QHS 11/06/2010 Inactive Neurontin 300 mg Cap RxNorm: 383469 1 Capsule(s) PO QHS 11/06/2010 Inactive Celebrex 200 mg Cap RxNorm: 660639 1 Capsule(s) PO BID 10/24/2010 Inactive fluoxetine 20 mg Cap RxNorm: 864464 1 Capsule(s) PO QD 06/07/201003/2011 Inactive Zocor 40 mg Tab RxNorm: 993683 1 Tablet(s) PO QHS 06/05/2010 12/02/19 11 Inactive Benicar HCT 40 mg-25 mg Tab RxNorm: 722828 1 Tablet(s) PO QD 200908/21/2011 Inactive Diltiazem 240 mg Continuous Release Cap RxNorm: 654246 1 Capsul e(s) PO QD 11/09/2009 09/02/2018 Inactive Avelox 400 mg Tab RxNorm: 351553 1 Tablet(s) PO QD 08/22/2009 010 Inactive ProAir HFA 90 mcg/actuation aerosol inhaler RxNorm: 385049 2 Puff(s) INH Q4H as needed No Start Date Active tramadol 50 mg tablet RxNorm: 112723 1-2 Tablet(s) PO TID as ne eded for pain No Start Date Active Tylenol Arthritis 650 mg Tab RxNorm: 0712965 2 Tablet(s) PO QD No Sta rt Date Active Celebrex 200 mg Cap RxNorm: 190731 1 Capsule(s) PO BID No Start Date 08/08/2015 Inactive Medrol (Vipul) 4 mg Tabs in a Dose Pack RxNorm: 522058 Tablet(s) PO N o Start Date 01/01/2011 Inactive as directed Promethazine-DM 6.25 mg-15 mg/5 mL Syrup RxNorm: 268726 1-2 Teaspoon(s) PO Q4H prn cough No Start Date 08/28/2011 Inactive Claritin 10 mg tablet RxNorm: 456792 1 Tablet(s) PO QD No Start Date 08/08/2015 Inactive [id number] Oral RxNorm: Oral No Start Da te 03/28/2019 Inactive Breo Ellipta 200 mcg-25 mcg/dose powder for inhalation RxNor m: 7255767 1 Puff(s) INH QD No Start Date 04/09/2017 Inactive metformin 500 mg Tab RxNorm: 302165 1 Tablet(s) PO QD No Start Date 0 08/17/2011 Inactive Diltiazem 240 mg Continuous Release Cap RxNorm: 063691 1 Capsul e(s) PO BID No Start Date 11/08/2009 Inactive fluoxetine 20 mg Cap RxNorm: 667791 1 Capsule(s) PO QD No Start Date 06/07/2010 Inactive Multivitamin & Mineral Formula Oral RxNorm: Oral No Start Da te 03/28/2019 Inactive Medrol (Vipul) 4 mg tablets in a dose pack RxNorm: 387975 Tablet(s) PO as directed No Start Date 05/28/2012 Inactive Fish Oil 1,000 mg Cap RxNorm: 1 Capsule(s) PO QD No Start Date 07/2018 Inactive Nexium 40 mg Cap RxNorm: 104269 1 Capsule(s) PO QD No Start Date 07/24 Inactive fluticasone 50 mcg/actuation nasal spray,suspension RxNorm: 7917122 2 [place] NASAL QD to each nostril No Start Date 08/03/2017 Inactive Viagra 100 mg tablet RxNorm: 580201 1 Tablet(s) PO as needed No Sta rt Date 09/17/2015 Inactive prednisone 20 mg tablet RxNorm: 892640 1 Tablet(s) PO B ID for 4 days then 1 po daily for 4 days No Start Date 11/23/2018 Inactive Benicar HCT 40 mg-25 mg Tab RxNorm: 878376 1 Tablet(s) PO QD No Sta rt [...] Date S ervice Location MICROALBUMIN URINE RANDOM 27627 MICRL MG/L 5.8 MG/L 03/2011 Unknown MICROALBUMIN URINE RANDOM 35109 XM.ALB/CRE 5.2 MG/GCR Unknown MICROALBUMIN URINE RANDOM 54413 CREAT MG/D 111 MG/DL 03/2011 Unknown MICROALBUMIN URINE RANDOM 54522 CRE/100 1.11 G/L 12/24 Unknown Procedures Procedure Codes Date FLU VACC PRSV FREE INC ANTIG 65 AND OLDER CPT-4: 14124 03/04/2019 ADMIN PNEUMOCOCCAL VACCINE CPT-4: G0009 03/04/2019 ADMIN INFLUENZA VIRUS VAC CPT-4: G0008 03/04/2019 FLU VACC PRSV FREE INC ANTIG 65 AND OLDER CPT-4: 28197 03/04/2019 PNEUMOCOCCAL VACC 23 RAYMON IM CPT-4: 04544 03/04/2019 THER/PROPH/DIAG INJ SC/IM CPT-4: 97776 08/11/2018 TRIAMCINOLONE ACET INJ NOS CPT-4: J3301 08/11/2018 DEXAMETHASONE SODIUM PHOS CPT-4: J1100 08/11/2018 THER/PROPH/DIAG INJ SC/IM CPT-4: 65607 07/16/2018 METHYLPREDNISOLONE INJECTION CPT-4: J2930 07/16/2018 INFLUENZA ASSAY W/OPTIC CPT-4: 58112 07/16/2018 THER/PROPH/DIAG INJ SC/IM CPT-4: 91532 07/13/2018 TRIAMCINOLONE ACET INJ NOS CPT-4: J3301 07/13/2018 THER/PROPH/DIAG INJ SC/IM CPT-4: 38080 05/04/2018 METHYLPREDNISOLONE INJECTION CPT-4: J2930 05/04/2018 FLU VACC PRSV FREE INC ANTIG 65 AND OLDER CPT-4: 60766 02/10/2018 PNEUMOCOCCAL VACC 13 R[facility]MON IM CPT-4: 89608 02/10/2018 ADMIN INFLUENZA VIRUS VAC CPT-4: G0008 02/10/2018 ADMIN PNEUMOCOCCAL VACCINE CPT-4: G0009 02/10/2018 THER/PROPH/DIAG INJ SC/IM CPT-4: 20571 09/09/2017 TRIAMCINOLONE ACET INJ NOS CPT-4: J3301 09/09/2017 ALBUTEROL NON-COMP UNIT CPT-4: J7613 04/10/2017 AIRWAY INHALATION TREATMENT CPT-4: 98738 04/10/2017 PRESCRIP TRANSMIT VIA ERX SY CPT-4: G8553 04/10/2017 FLU VACC PRSV FREE INC ANTIG 65 AND OLDER CPT-4: 90935 03/28/2017 ADMIN INFLUENZA VIRUS VAC CPT-4: G0008 03/28/2017 PRESCRIP TRANSMIT VIA ERX SY CPT-4: G8553 08/27/2016 PRESCRIP TRANSMIT VIA ERX SY CPT-4: G8553 06/14/2016 ALBUTEROL NON-COMP UNIT CPT-4: J7613 06/13/2016 AIRWAY INHALATION TREATMENT CPT-4: 17644 06/13/2016 PRESCRIP TRANSMIT VIA ERX SY CPT-4: [...] CPT-4: G8553 11/07/2014 THER/PROPH/DIAG INJ SC/IM CPT-4: 84100 09/21/2014 METHYLPREDNISOLONE INJECTION CPT-4: J2930 09/21/2014 PRESCRIP TRANSMIT VIA ERX SY CPT-4: G8553 09/21/2014 PRESCRIP TRANSMIT VIA ERX SY CPT-4: G8553 06/10/2014 URINALYSIS NONAUTO W/O SCOPE CPT-4: 26705 06/01/2012 PRESCRIP TRANSMIT VIA ERX SY CPT-4: G8553 05/25/2012 PRESCRIP TRANSMIT VIA ERX SY CPT-4: G8553 12/03/2011 CUR TOBACCO NON-USER CPT-4: G8457 05/30/2011 PRESCRIP TRANSMIT VIA ERX SY CPT-4: G8553 05/30/2011 URINALYSIS NONAUTO W/O SCOPE CPT-4: 77330 01/01/2011 URINE CULTURE/ COLONY COUNT CPT-4: 56531 01/01/2011 CUR TOBACCO NON-USER CPT-4: G8457 01/01/2011 [...] 1: 114/68 Code: 8480-6 BMI: 43.5 Code: 86919-0 Heart Rate 1: 52 bpm Height: 6'1" [...] 1: 136/72 Code: 8480-6 BMI: 42.7 Code: 69623-8 Heart Rate 1: 60 bpm Height: 6'1" Respiratory Rate: 22 bpm SpO2: 95% Tempera ture: 37.1 (C) / 98.7 (F) Weight: 324 lbs 02/10/2018 Blood Pressure 1: 146/78 Code: 8480-6 BMI: 42.4 Code: 51310-0 Heart Rate 1: 64 bpm Height: 6'1" Respiratory Rate: 22 bpm SpO2: 95% Tempera ture: 36.5 (C) / 97.7 (F) Weight: 321 lbs 11/05/2017 Blood Pressure 1: 128/84 Code: 8480-6 BMI: 42.9 Code: 89817-7 Heart Rate 1: 52 bpm Height: 6'1" Respiratory Rate: 22 bpm SpO2: 95% Tempera ture: 36.3 (C) / 97.3 (F) Weight: 325 lbs 09/09/2017 Blood Pressure 1: 162/90 Code: 8480-6 BMI: 42.5 Code: 89470-6 Heart Rate 1: 60 bpm Height: 6'1" Respiratory Rate: 24 bpm SpO2: 95% Tempera ture: 36.4 (C) / 97.6 (F) Weight: 322 lbs 08/07/2017 Blood Pressure 1: 152/90 Code: 8480-6 BMI: 42.2 Code: 68342-9 Heart Rate 1: 60 bpm Height: 6'1" Respiratory Rate: 26 bpm SpO2: 94% Tempera ture: 36.6 (C) / 97.8 (F) Weight: 320 lbs 08/04/2017 Blood Pressure 1: 150/86 Code: 8480-6 BMI: 42.7 Code: 72019-8 Heart Rate 1: 64 bpm Height: 6'1" Respiratory Rate: 20 bpm SpO2: 94% Tempera ture: 36.3 (C) / 97.3 (F) Weight: 324 lbs 06/04/2017 Blood Pressure 1: 164/90 Code: 8480-6 Heart Rate 1: 60 bpm Respiratory Rate: 24 bpm SpO2: 94% Temperature: 36.8 (C) / 98.3 (F) 06/02/2017 Blood Pressure 1: 162/80 Code: 8480-6 BMI: 42.9 Code: 35198-5 Heart Rate 1: 66 bpm Height: 6'1" Respiratory Rate: 22 bpm SpO2: 98% Tempera ture: 36.6 (C) / 97.8 (F) Weight: 325 lbs 05/05/2017 Blood Pressure 1: 164/94 Code: 8480-6 BMI: 41.4 Code: 14894-2 Heart Rate 1: 64 bpm Height: 6'1" Respiratory Rate: 22 bpm SpO2: 95% Tempera ture: 36.4 (C) / 97.5 (F) Weight: 314 lbs 04/10/2017 Blood Pressure 1: 136/78 Code: 8480-6 BMI: 42.0 Code: 41975-9 Heart Rate 1: 76 bpm Height: 6'1" Respiratory Rate: 24 bpm SpO2: 92% Tempera ture: 35.9 (C) / 96.7 (F) Weight: 318 lbs 02/03/2017 Blood Pressure 1: 134/82 Code: 8480-6 BMI: 41.7 Code: 90241-5 Heart Rate 1: 72 bpm Height: 6'1" Respiratory Rate: 24 bpm SpO2: 95% Tempera ture: 36.1 (C) / 97.0 (F) Weight: 316 lbs 10/30/2016 Blood Pressure 1: 126/74 Code: 8480-6 BMI: 41.3 Code: 53269-3 Heart Rate 1: 68 bpm Height: 6'1" Respiratory Rate: 20 bpm Temperature: 37 .1 (C) / 98.8 (F) Weight: 313 lbs 08/30/2016 Blood Pressure 1: 146/80 Code: 8480-6 BMI: 41.7 Code: 72222-8 Heart Rate 1: 64 bpm Height: 6'1" Respiratory Rate: 24 bpm SpO2: 94% Tempera ture: 36.6 (C) / 97.8 (F) Weight: 316 lbs 08/27/2016 Blood Pressure 1: 124/78 Code: 8480-6 Heart Rate 1: 66 bpm Height: 6'2" Respiratory Rate: 18 bpm SpO2: 94% Temperature: 36.6 (C) / 97.8 (F) Weight: 07/02/2016 Blood Pressure 1: 126/78 Code: 8480-6 BMI: 41.4 Code: 02092-1 Heart Rate 1: 68 bpm Height: 6'1" Respiratory Rate: 24 bpm SpO2: 94% Tempera ture: 36.6 (C) / 97.8 (F) Weight: 314 lbs 06/14/2016 Blood Pressure 1: 146/82 Code: 8480-6 Heart Rate 1: 80 bpm Respiratory Rate: 20 bpm SpO2: 95% Temperature: 37.3 (C) / 99.2 (F) 06/13/2016 Blood Pressure 1: 146/84 Code: 8480-6 BMI: 40.5 Code: 53204-4 Heart Rate 1: 66 bpm Height: 6'1" Respiratory Rate: 28 bpm SpO2: 93% Tempera ture: 35.8 (C) / 96.4 (F) Weight: 307 lbs 05/14/2016 Blood Pressure 1: 146/90 Code: 8480-6 BMI: 41.2 Code: 18624-0 Heart Rate 1: 68 bpm Height: 6'1" Respiratory Rate: 26 bpm Temperature: 36 .8 (C) / 98.2 (F) Weight: 312 lbs 04/29/2016 Blood Pressure 1: 152/90 Code: 8480-6 BMI: 41.0 Code: 32061-5 Heart Rate 1: 68 bpm Height: 6'1" Respiratory Rate: 26 bpm SpO2: 94% Tempera ture: 36.1 (C) / 96.9 (F) Weight: 311 lbs 04/22/2016 Blood Pressure 1: 152/94 Code: 8480-6 BMI: 40.9 Code: 40403-1 Heart Rate 1: 68 bpm Height: 6'1" Respiratory Rate: 24 bpm SpO2: 94% Tempera ture: 36.2 (C) / 97.2 (F) Weight: 310 lbs 04/01/2016 Blood Pressure 1: 156/78 Code: 8480-6 BMI: 40.6 Code: 40353-8 Heart Rate 1: 84 bpm Height: 6'1" Respiratory Rate: 22 bpm SpO2: 95% Tempera ture: 37.1 (C) / 98.7 (F) Weight: 308 lbs 11/30/2015 Blood Pressure 1: 142/80 Code: 8480-6 BMI: 40.5 Code: 62360-5 Heart Rate 1: 88 bpm Height: 6'1" Respiratory Rate: 22 bpm Temperature: 36 .2 (C) / 97.2 (F) Weight: 307 lbs 08/29/2015 Blood Pressure 1: 132/70 Code: 8480-6 BMI: 40.0 Code: 47910-3 Heart Rate 1: 76 bpm Height: 6'1" Respiratory Rate: 24 bpm SpO2: 96% Tempera ture: 36.7 (C) / 98.0 (F) Weight: 303 lbs 08/14/2015 Blood Pressure 1: 126/80 Code: 8480-6 BMI: 39.4 Code: 77021-7 Heart Rate 1: 92 bpm Height: 6'1" Respiratory Rate: 24 bpm SpO2: 94% Tempera ture: 37.8 (C) / 100.0 (F) Weight: 299 lbs 08/09/2015 Blood Pressure 1: 146/82 Code: 8480-6 Heart Rate 1: 82 bpm Respiratory Rate: 22 bpm SpO2: 93% Temperature: 35.9 (C) / 96.6 (F) We ight: 310 lbs 05/22/2015 Blood Pressure 1: 156/76 Code: 8480-6 BMI: 41.0 Code: 45576-5 Heart Rate 1: 100 bpm Height: 6'1" Respiratory Rate: 22 bpm Temperature: 37 .2 (C) / 98.9 (F) Weight: 311 lbs 02/13/2015 Blood Pressure 1: 166/90 Code: 8480-6 BMI: 41.2 Code: 23773-1 Heart Rate 1: 72 bpm Height: 6'1" Respiratory Rate: 24 bpm SpO2: 93% Tempera ture: 36.9 (C) / 98.5 (F) Weight: 312 lbs 11/07/2014 Blood Pressure 1: 134/70 Code: 8480-6 BMI: 40.5 Code: 29033-6 Heart Rate 1: 76 bpm Height: 6'1" Respiratory Rate: 24 bpm Temperature: 36 .9 (C) / 98.4 (F) Weight: 307 lbs 10/04/2014 Blood Pressure 1: 144/86 Code: 8480-6 BMI: 40.1 Code: 76217-9 Heart Rate 1: 76 bpm Height: 6'1" Respiratory Rate: 28 bpm Temperature: 36 .6 (C) / 97.9 (F) Weight: 304 lbs 09/22/2014 Blood Pressure 1: 142/80 Code: 8480-6 BMI: 40.0 Code: 20909-7 Heart Rate 1: 80 bpm Height: 6'1" Respiratory Rate: 22 bpm SpO2: 96% Tempera ture: 36.6 (C) / 97.8 (F) Weight: 303 lbs 09/21/2014 Blood Pressure 1: 160/66 Code: 8480-6 BMI: 40.0 Code: 78154-2 Heart Rate 1: 90 bpm Height: 6'1" Respiratory Rate: 26 bpm SpO2: 94% Tempera ture: 35.7 (C) / 96.2 (F) Weight: 303 lbs 06/28/2014 Blood Pressure 1: 132/80 Code: 8480-6 BMI: 41.0 Code: 52163-4 Heart Rate 1: 64 bpm Height: 6' Respiratory Rate: 20 bpm Temperature: 36 .7 (C) / 98.0 (F) Weight: 302 lbs 06/10/2014 Blood Pressure 1: 152/70 Code: 8480-6 BMI: 41.1 Code: 59002-0 Heart Rate 1: 76 bpm Height: 6' Respiratory Rate: 20 bpm Temperature: 36 .6 (C) / 97.8 (F) Weight: 303 lbs 03/29/2014 Blood Pressure 1: 132/78 Code: 8480-6 BMI: 40.6 Code: 64692-0 Heart Rate 1: 84 bpm Height: 6' Respiratory Rate: 22 bpm Temperature: 37 .1 (C) / 98.8 (F) Weight: 299 lbs 11/30/2013 Blood Pressure 1: 136/84 Code: 8480-6 BMI: 39.2 Code: 87501-2 Heart Rate 1: 76 bpm Height: 6' Respiratory Rate: 20 bpm Temperature: 36 .8 (C) / 98.2 (F) Weight: 289 lbs 08/03/2013 Blood Pressure 1: 144/80 Code: 8480-6 Heart Rate 1: 86 bpm Respiratory Rate: 20 bpm Temperature: 36.6 (C) / 97.8 (F) Weight: 296 lbs 04/06/2013 Blood Pressure 1: 142/90 Code: 8480-6 BMI: 40.3 Code: 21112-6 Heart Rate 1: 88 bpm Height: 6' Respiratory Rate: 20 bpm Temperature: 36 .6 (C) / 97.8 (F) Weight: 297 lbs 12/01/2012 Blood Pressure 1: 124/78 Code: 8480-6 BMI: 38.7 Code: 20528-5 Heart Rate 1: 76 bpm Height: 6' Respiratory Rate: 20 bpm Temperature: 37 .2 (C) / 98.9 (F) Weight: 285 lbs 08/04/2012 Blood Pressure 1: 128/80 Code: 8480-6 BMI: 38.2 Code: 54885-6 Heart Rate 1: 76 bpm Height: 6' Respiratory Rate: 20 bpm Temperature: 37 .0 (C) / 98.6 (F) Weight: 282 lbs 05/29/2012 Blood Pressure 1: 138/78 Code: 8480-6 BMI: 36.6 Code: 38320-3 Heart Rate 1: 66 bpm Height: 6' Temperature: 36.7 (C) / 98.1 (F) Weight: 270 lbs 05/25/2012 Blood Pressure 1: 128/72 Code: 8480-6 BMI: 39.9 Code: 16257-6 Heart Rate 1: 74 bpm Height: 6' Temperature: 36.1 (C) / 97.0 (F) Weight: 294 lbs 04/07/2012 Blood Pressure 1: 124/76 Code: 8480-6 BMI: 39.9 Code: 74736-1 Heart Rate 1: 72 bpm Height: 6' Respiratory Rate: 20 bpm Temperature: 36 .9 (C) / 98.5 (F) Weight: 294 lbs 12/16/2011 Blood Pressure 1: 128/80 Code: 8480-6 BMI: 40.8 Code: 30973-7 Heart Rate 1: 74 bpm Height: 6' Temperature: 36.6 (C) / 97.8 (F) Weight: 301 lbs 12/03/2011 Blood Pressure 1: 132/76 Code: 8480-6 BMI: 40.8 Code: 89846-7 Heart Rate 1: 68 bpm Height: 6' Respiratory Rate: 20 bpm Temperature: 36 .8 (C) / 98.2 (F) Weight: 301 lbs 08/29/2011 Blood Pressure 1: 140/68 Code: 8480-6 BMI: 40.8 Code: 17207-1 Heart Rate 1: 80 bpm Height: 6' Respiratory Rate: 20 bpm Temperature: 36 .4 (C) / 97.6 (F) Weight: 301 lbs 05/30/2011 Blood Pressure 1: 134/82 Code: 8480-6 BMI: 41.5 Code: 50037-3 Heart Rate 1: 76 bpm Height: 6' [...] 1: 126/72 Code: 8480-6 BMI: 41.2 Code: 79336-9 Heart Rate 1: 76 bpm Height: 6' [...] 1: 152/90 Code: 8480-6 BMI: 37.7 Code: 13700-5 Heart Rate 1: 92 bpm Height: 6'1" [...] follow up 11/05/2017 skin lesion 09/09/2017 Dr Jaems had given hi m clotrimazole/betamethasone follow up [...] 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] Neela QURESHI [employer] CPT-4: 90233 05/10/2019 ([id number]) OFFICE/OUTPATIENT VISIT EST Diagnosis: Chronic obstructive pulmonary disease with (acute) exacerbation[ICD10: J44.1] Diagnosis: Hypokalemia[ICD10: E87.6] 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] Neela QURESHI [employer] CPT-4: 82003 03/29/2019 ([id number]) NURSE/OUTPATIENT VISIT EST Diagnosis: PNEUMOCOCCAL VACCINE[ICD10: Z23] Neela MURILLO [employer] CPT-4: 23888 03/04/2019 ([id number]) OFFICE/OUTPATIENT VISIT EST Diagnosis: Chronic obstructive pulmonary disease with (acute) exacerbation[ICD10: J44.1] Diagnosis: Other nonspecific abnormal finding of lung field[ICD10: R91.8] Neela HYMAN [facility] CPT-4: 06570 01/05/2019 ([id number]) OFFICE/OUTPATIENT VISIT EST Diagnosis: Solitary pulmonary nodule[ICD10: R91.1] 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] Diagnosis: Tinea corporis[ICD10: B35.4] Neela HYMAN [facility] CPT-4: 99196 12/09/2018 ([id number]) OFFICE/OUTPATIENT VISIT EST Diagnosis: COUGH[ICD10: R05] Diagnosis: Chronic obstructive pulmonary disease, unspecified[ICD10: J44.9] Diagnosis: Other disorders of lung[ICD10: J98.4] Diagnosis: Other nonspecific abnormal finding of lung field[ICD10: R91.8] Neela HYMAN [facility] CPT-4: 28244 11/24/2018 ([id number]) OFFICE/OUTPATIENT VISIT EST Diagnosis: Pneumonia, unspecified organism[ICD10: J18.9] Amita HYMAN [facility] CPT-4: 80834 09/16/2018 ([id number]) OFFICE/OUTPATIENT VISIT EST Diagnosis: Pneumonia, unspecified organism[ICD10: J18.9] Neela HYMAN [facility] CPT-4: 51830 09/03/2018 ([id number]) OFFICE/OUTPATIENT VISIT EST Diagnosis: Personal history of pneumonia (recurrent)[ICD10: Z87.01] Diagnosis: Cough[ICD10: R05] Diagnosis: Essential (primary) hypertension[ICD10: I10] Diagnosis: Type 2 diabetes mellitus with hyperglycemia[ICD10: E11.65] Amita HYMAN [facility] CPT-4: 15110 08/27/2018 OFFICE/OUTPATIENT VISIT EST Diagnosis: Pneumonia, unspecified organism[ICD10: J18.9] Diagnosis: Chronic obstructive pulmonary disease with (acute) exacerbation[ICD10: J44.1] Diagnosis: Other specified symptoms and signs involving the circulatory and respiratory systems[ICD10: R09.89] Diagnosis: Essential (primary) hypertension[ICD10: I10] Amita HYMAN [facility] CPT-4: 63039 08/13/2018 OFFICE/OUTPATIENT VISIT EST Diagnosis: Pneumonia, unspecified organism[ICD10: J18.9] Diagnosis: Other specified symptoms and signs involving the circulatory and respiratory systems[ICD10: R09.89] Amita HYMAN [facility] CPT-4: 49868 08/11/2018 ([id number]) OFFICE/OUTPATIENT VISIT EST Diagnosis: Dyspnea, unspecified[ICD10: R06.00] Diagnosis: Chronic obstructive pulmonary disease with (acute) exacerbation[ICD10: J44.1] Diagnosis: Pneumonia, unspecified organism[ICD10: J18.9] Amita HYMAN [facility] CPT-4: 09421 07/16/2018 ([id number]) OFFICE/OUTPATIENT VISIT EST Diagnosis: Acute bronchitis due to other specified organisms[ICD10: J20.8] Diagnosis: Cough[ICD10: R05] Amita VALENTINEZALORAHAO [facility] T-4: 32113 07/13/2018 ([id number]) OFFICE/OUTPATIENT VISIT EST Diagnosis: Essential (primary) hypertension[ICD10: I10] Diagnosis: Chronic obstructive pulmonary disease, unspecified[ICD10: J44.9] Diagnosis: Type 2 diabetes mellitus with hyperglycemia[ICD10: E11.65] Diagnosis: Mixed hyperlipidemia[ICD10: E78.2] Neela STERLING [employer] [facility] CPT-4: 99253 06/03/2018 ([id number]) OFFICE/OUTPATIENT VISIT EST Diagnosis: Chronic obstructive pulmonary disease, unspecified[ICD10: J44.9] Gely Harp NEELA Octavio [employer] [facility] CPT-4: 17632 05/04/2018 ([id number]) OFFICE/OUTPATIENT VISIT EST Diagnosis: Essential (primary) hypertension[ICD10: I10] Diagnosis: Localized edema[ICD10: R60.0] Neela MURILLO [employer] [facility] CPT-4: 23919 03/03/2018 ([id number]) OFFICE/OUTPATIENT VISIT EST Diagnosis: Localized edema[ICD10: R60.0] Neela HYMAN [facility] CPT-4: 46274 02/17/2018 ([id number]) OFFICE/OUTPATIENT VISIT EST Diagnosis: FLU VACCINE[ICD10: Z23] Diagnosis: PNEUMOCOCCAL VACCINE[ICD10: Z23] Diagnosis: Type 2 diabetes mellitus without complications[ICD10: E11.9] Diagnosis: Mixed hyperlipidemia[ICD10: E78.2] Diagnosis: Essential (primary) hypertension[ICD10: I10] Diagnosis: Localized edema[ICD10: R60.0] Diagnosis: Chronic obstructive pulmonary disease, unspecified[ICD10: J44.9] Neela HYMAN [facility] CPT-4: 32636 02/10/2018 ([id number]) OFFICE/OUTPATIENT VISIT EST Diagnosis: Type 2 diabetes mellitus with hyperglycemia[ICD10: E11.65] Diagnosis: Mixed hyperlipidemia[ICD10: E78.2] Diagnosis: Essential (primary) hypertension[ICD10: I10] Diagnosis: Chronic obstructive pulmonary disease, unspecified[ICD10: J44.9] Diagnosis: Cutaneous abscess of back [any part, except buttock][ICD10: L02.212] Neela MIRZALINE Octavio HYMAN [facility] CPT-4: 30771 11/05/2017 ([id number]) OFFICE/OUTPATIENT VISIT EST Diagnosis: Allergic urticaria[ICD10: L50.0] Gely HYMAN [facility] CPT-4: 30058 09/09/2017 ([id number]) OFFICE/OUTPATIENT VISIT EST Diagnosis: Generalized enlarged lymph nodes[ICD10: R59.1] Diagnosis: Acute gastritis without bleeding[ICD10: K29.00] Gely HYMAN [facility] CPT-4: 51182 08/07/2017 ([id number]) OFFICE/OUTPATIENT VISIT EST Diagnosis: Type 2 diabetes mellitus without complications[ICD10: E11.9] Diagnosis: Mixed hyperlipidemia[ICD10: E78.2] Diagnosis: Essential (primary) hypertension[ICD10: I10] Neeladano Hyman NEELA Octavio HYMAN [facility] CPT-4: 01849 08/04/2017 ([id number]) OFFICE/OUTPATIENT VISIT EST Diagnosis: Zoster without complications[ICD10: B02.9] Diagnosis: Acute sialoadenitis[ICD10: K11.21] Gely HYMAN [facility] CPT-4: 88662 06/04/2017 OFFICE/OUTPATIENT VISIT EST Diagnosis: Zoster without complications[ICD10: B02.9] Diagnosis: Acute sialoadenitis[ICD10: K11.21] Gely HYMAN [facility] CPT-4: 04037 06/02/2017 ([id number]) OFFICE/OUTPATIENT VISIT EST Diagnosis: Type 2 diabetes mellitus without complications[ICD10: E11.9] Diagnosis: Mixed hyperlipidemia[ICD10: E78.2] Diagnosis: Essential (primary) hypertension[ICD10: I10] Diagnosis: Chronic obstructive pulmonary disease, unspecified[ICD10: J44.9] Neela ZHANG [facility] CPT-4: 64505 05/05/2017 OFFICE/OUTPATIENT VISIT EST Diagnosis: Chronic obstructive pulmonary disease with acute lower respiratory infection[ICD10: J44.0] Diagnosis: Impacted cerumen, bilateral[ICD10: H61.23] Gely ZHANG [facility] CPT-4: 90237 04/10/2017 ([id number]) OFFICE/OUTPATIENT VISIT EST Diagnosis: FLU VACCINE[ICD10: Z23] Neela ZHANG [facility] CPT-4: 78045 03/28/2017 ([id number]) OFFICE/OUTPATIENT VISIT EST Diagnosis: Type 2 diabetes mellitus without complications[ICD10: E11.9] Diagnosis: Mixed hyperlipidemia[ICD10: E78.2] Diagnosis: Essential (primary) hypertension[ICD10: I10] Diagnosis: Chronic obstructive pulmonary disease, unspecified[ICD10: J44.9] Neela ZHANG [facility] CPT-4: 54054 02/03/2017 ([id number]) OFFICE/OUTPATIENT VISIT EST Diagnosis: Type 2 diabetes mellitus with hyperglycemia[ICD10: E11.65] Diagnosis: Mixed hyperlipidemia[ICD10: E78.2] Diagnosis: Essential (primary) hypertension[ICD10: I10] Diagnosis: Chronic obstructive pulmonary disease, unspecified[ICD10: J44.9] Neela HYMAN DO [facility] CPT-4: 60746 10/30/2016 ([id number]) NO CHARGE Diagnosis: Acute bronchitis, unspecified[ICD10: J20.9] Sammi HYMAN DO [facility] CPT-4: 95925 08/30/2016 ([id number]) OFFICE/OUTPATIENT VISIT EST Diagnosis: Acute bronchitis, unspecified[ICD10: J20.9] Diagnosis: Other seasonal allergic rhinitis[ICD10: J30.2] Sammi HYMAN DO [facility] CPT-4: 33824 08/27/2016 ([id number]) OFFICE/OUTPATIENT VISIT EST Diagnosis: Type 2 diabetes mellitus without complications[ICD10: E11.9] Diagnosis: Mixed hyperlipidemia[ICD10: E78.2] Diagnosis: Essential (primary) hypertension[ICD10: I10] Neela HYMAN DO [facility] CPT-4: 41122 07/02/2016 ([id number]) OFFICE/OUTPATIENT VISIT EST Diagnosis: Acute bronchitis, unspecified[ICD10: J20.9] Sammi HYMAN [facility] CPT-4: 94169 06/14/2016 ([id number]) OFFICE/OUTPATIENT VISIT EST Diagnosis: Acute bronchitis, unspecified[ICD10: J20.9] Smami HYMAN DO [facility] CPT-4: 83198 06/13/2016 ([id number]) OFFICE/OUTPATIENT VISIT EST Diagnosis: Essential (primary) hypertension[ICD10: I10] Neela HYMAN DO [facility] CPT-4: 48623 05/14/2016 ([id number]) OFFICE/OUTPATIENT VISIT EST Diagnosis: Essential (primary) hypertension[ICD10: I10] Neela HYMAN DO [facility] CPT-4: 85929 04/29/2016 ([id number]) OFFICE/OUTPATIENT VISIT EST Diagnosis: Unspecified abdominal pain[ICD10: R10.9] Diagnosis: Left lower quadrant pain[ICD10: R10.32] Diagnosis: Left upper quadrant pain[ICD10: R10.12] Diagnosis: Essential (primary) hypertension[ICD10: I10] Neela HYMAN DO [facility] CPT-4: 99300 04/22/2016 ([id number]) OFFICE/OUTPATIENT VISIT EST Diagnosis: Type 2 diabetes mellitus without complications[ICD10: E11.9] Diagnosis: Mixed hyperlipidemia[ICD10: E78.2] Diagnosis: Essential (primary) hypertension[ICD10: I10] Neela HYMAN DO [facility] CPT-4: 30632 04/01/2016 ([id number]) OFFICE/OUTPATIENT VISIT EST Diagnosis: Type 2 diabetes mellitus with hyperglycemia[ICD10: E11.65] Diagnosis: Mixed hyperlipidemia[ICD10: E78.2] Diagnosis: Essential (primary) hypertension[ICD10: I10] Neela HYMAN DO [facility] CPT-4: 27128 11/30/2015 ([id number]) OFFICE/OUTPATIENT VISIT EST Diagnosis: Type 2 diabetes mellitus with diabetic neuropathy, unspecified[ICD10: E11.40] Diagnosis: Essential (primary) hypertension[ICD10: I10] Diagnosis: Mixed hyperlipidemia[ICD10: E78.2] Neela HYMAN [facility] CPT-4: 75997 08/29/2015 ([id number]) OFFICE/OUTPATIENT VISIT EST Diagnosis: COUGH[ICD10: R05] Diagnosis: Wheezing[ICD10: R06.2] Diagnosis: Type 2 diabetes mellitus with diabetic neuropathy, unspecified[ICD10: E11.40] Neela HYMAN DO [facility] CPT-4: 38579 08/14/2015 ([id number]) OFFICE/OUTPATIENT VISIT EST Diagnosis: Other seasonal allergic rhinitis[ICD10: J30.2] Diagnosis: Dyspnea, unspecified[ICD10: R06.00] Diagnosis: Wheezing[ICD10: R06.2] Sammi Reinaldo HYMAN DO [facility] CPT-4: 54719 08/09/2015 ([id number]) OFFICE/OUTPATIENT VISIT EST Diagnosis: Essential (primary) hypertension[ICD10: I10] Diagnosis: Type 2 diabetes mellitus with hyperglycemia[ICD10: E11.65] Diagnosis: Mixed hyperlipidemia[ICD10: E78.2] Neela STERLING SMendez HYMAN [facility] CPT-4: 34940 05/22/2015 ([id number]) OFFICE/OUTPATIENT VISIT EST Diagnosis: DM W/O COMPLICATION TYPE II[ICD9: 250.00] Diagnosis: - I - HYPERTENSION[ICD9: 401.9] Diagnosis: - I - HYPERLIPIDEMIA NEC/NOS[ICD9: 272.4] Diagnosis: Left hand paresthesia[ICD9: 782.0] Neela STERLING SMendez HYMAN [facility] CPT-4: 05916 02/13/2015 ([id number]) OFFICE/OUTPATIENT VISIT EST Diagnosis: HYPERLIPIDEMIA NEC/NOS[ICD9: 272.4] Diagnosis: DM W/O COMPLICATION TYPE II[ICD9: 250.00] Neela HYMAN [facility] CPT-4: 24043 11/07/2014 ([id number]) OFFICE/OUTPATIENT VISIT EST Diagnosis: ALLERGIC RHINITIS[ICD9: 477.9] Diagnosis: WHEEZING[ICD9: 786.07] Neela Duarte [facility] CPT-4: 20775 10/04/2014 ([id number]) OFFICE/OUTPATIENT VISIT EST Diagnosis: BRONCHITIS, ACUTE[ICD9: 466.0] Diagnosis: WHEEZING[ICD9: 786.07] Loren BADILLO R [facility] CPT-4: 54758 09/22/2014 ([id number]) OFFICE/OUTPATIENT VISIT EST Diagnosis: DYSPNEA[ICD9: 786.09] Diagnosis: WHEEZING[ICD9: 786.07] Diagnosis: Arrhythmia[ICD9: 427.9] Loren VALENTINEND ER [facility] CPT-4: 25796 09/21/2014 ([id number]) OFFICE/OUTPATIENT VISIT EST Diagnosis: DM W/O COMPLICATION TYPE II, 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] Diagnosis: - I - HYPERLIPIDEMIA NEC/NOS[ICD9: 272.4] Diagnosis: - I - HYPERTENSION[ICD9: 401.9] Neela HYMAN [facility] CPT-4: 66771 06/28/2014 OFFICE/OUTPATIENT VISIT EST Diagnosis: SINUSITIS, ACUTE[ICD9: 461.9] Diagnosis: OTITIS MEDIA NOS[ICD9: 382.9] [facility] 01276 06/10/2014 ([id number]) OFFICE/OUTPATIENT VISIT EST Diagnosis: DM W/O COMPLICATION TYPE II[ICD9: 250.00] Diagnosis: - I - HYPERLIPIDEMIA NEC/NOS[ICD9: 272.4] Diagnosis: - I - HYPERTENSION[ICD9: 401.9] [facility] 65904 03/29/2014 ([id number]) OFFICE/OUTPATIENT VISIT EST Diagnosis: DM W/O COMPLICATION TYPE II[ICD9: 250.00] Diagnosis: - I - HYPERTENSION[ICD9: 401.9] Diagnosis: - I - HYPERLIPIDEMIA NEC/NOS[ICD9: 272.4] Diagnosis: Hand lesion[ICD9: 709.9] Neela Sergemelany MURILLO JulissaMendez [facility] CPT-4: 02185 11/30/2013 ([id number]) OFFICE/OUTPATIENT VISIT EST Diagnosis: DM W/O COMPLICATION TYPE II[ICD9: 250.00] Diagnosis: HYPERLIPIDEMIA NEC/NOS[ICD9: 272.4] Diagnosis: HYPERTENSION[ICD9: 401.9] Neela Sergeushahao MIRZANEELA JulissaMendez [facility] CPT-4: 49678 08/03/2013 ([id number]) OFFICE/OUTPATIENT VISIT EST Diagnosis: DM W/O COMPLICATION TYPE II, 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] Diagnosis: HYPERTENSION[ICD9: 401.9] Diagnosis: HYPERLIPIDEMIA NEC/NOS[ICD9: 272.4] Neela GREGORIO JulissaMendez [facility] CPT-4: 48388 04/06/2013 ([id number]) OFFICE/OUTPATIENT VISIT EST Diagnosis: DM W/O COMPLICATION TYPE II[ICD9: 250.00] Diagnosis: HYPERLIPIDEMIA NEC/NOS[ICD9: 272.4] Diagnosis: HYPERTENSION[ICD9: 401.9] Neela Sergemelany MURILLO JulissaMendez [facility] CPT-4: 88694 12/01/2012 ([id number]) OFFICE/OUTPATIENT VISIT EST Diagnosis: DM W/O COMPLICATION TYPE II[ICD9: 250.00] Diagnosis: HYPERTENSION[ICD9: 401.9] Diagnosis: HYPERLIPIDEMIA NEC/NOS[ICD9: 272.4] Neela GREGORIO JulissaMendez [facility] CPT-4: 75483 08/04/2012 ([id number]) OFFICE/OUTPATIENT VISIT EST Diagnosis: URINARY FREQUENCY[ICD9: 788.41] Neela Cunningham [facility] CPT-4: 75038 06/01/2012 OFFICE/OUTPATIENT VISIT EST Diagnosis: Agitation[ICD9: 307.9] Diagnosis: Frequent urination[ICD9: 788.41] Janet [facility] CPT-4: 28547 05/29/2012 OFFICE/OUTPATIENT VISIT EST Diagnosis: SINUSITIS, ACUTE[ICD9: 461.9] Diagnosis: OTALGIA[ICD9: 388.70] Neela [facility] CPT-4: 46881 05/25/2012 OFFICE/OUTPATIENT VISIT EST Diagnosis: DM W/O COMPLICATION TYPE II, 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] Diagnosis: HYPERTENSION[ICD9: 401.9] Diagnosis: HYPERLIPIDEMIA NEC/NOS[ICD9: 272.4] Neela GREGORIO JulissaMendez [facility] CPT-4: 93026 04/07/2012 OFFICE/OUTPATIENT VISIT EST Diagnosis: FINGER INJURY[ICD9: 959.5] Janet Cunningham [facility] CPT-4: 48858 12/16/2011 ([id number]) OFFICE/OUTPATIENT VISIT EST Diagnosis: DM W/O COMPLICATION TYPE II, 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] Diagnosis: HYPERTENSION[ICD9: 401.9] Diagnosis: HYPERLIPIDEMIA NEC/NOS[ICD9: 272.4] Neela Cunningham [facility] CPT-4: 63846 12/03/2011 ([id number]) OFFICE/OUTPATIENT VISIT EST Diagnosis: DM W/O COMPLICATION TYPE II[ICD9: 250.00] Diagnosis: HYPERLIPIDEMIA NEC/NOS[ICD9: 272.4] Diagnosis: HYPERTENSION[ICD9: 401.9] Neela Cunningham ORE NDER DO [facility] CPT-4: 76974 08/29/2011 OFFICE/OUTPATIENT VISIT EST Diagnosis: DM W/O COMPLICATION TYPE II[ICD9: 250.00] Diagnosis: HYPERLIPIDEMIA NEC/NOS[ICD9: 272.4] Diagnosis: HYPERTENSION[ICD9: 401.9] Neela VALENTINE NDER DO [facility] CPT-4: 36289 05/30/2011 OFFICE/OUTPATIENT VISIT EST Diagnosis: SKIN SENSATION DISTURB[ICD9: 782.0] Neela GREGORIO S. ORENDER DO [facility] CPT-4: 49442 01/29/2011 OFFICE/OUTPATIENT VISIT EST Diagnosis: SKIN SENSATION DISTURB[ICD9: 782.0] Neela GREGORIO S. ORENDER DO [facility] CPT-4: 97724 01/14/2011 OFFICE/OUTPATIENT VISIT EST Neela VALENTINE NDER DO [facility] CPT- 4: 81618 01/01/2011 OFFICE/OUTPATIENT VISIT EST Neela MURILLO SMendez VALENTINE NDER DO [facility] CPT- 4: 26989 11/29/2010 ([id number]) OFFICE/OUTPATIENT VISIT EST Neela QURESHI AUNG S. [facility]ENDER [facility] CPT-4: 19675 08/28/2010 ([id number]) OFFICE/OUTPATIENT VISIT, EST Neela WILDE S. ORENDER DO [facility] CPT-4: 47843 06/05/2010 ([id number]) OFFICE/OUTPATIENT VISIT, EST Neela Sergeusahhao WILDE S. ORENDER DO [facility] CPT-4: 55113 02/05/2010 ([id number]) OFFICE/OUTPATIENT VISIT, EST Neela Yenni WILDE S. [facility] CPT-4: 99780 10/09/2009 ([id number]) OFFICE/OUTPATIENT VISIT, EST Neela Oreushahao SETH CHANI S. ORENDER DO [facility] CPT-4: 31870 08/22/2009 Plan of Care Planned Activity Notes Codes Status Date Visit Diagnosis Plan: Advanced chronic obstructive pul monary disease Discussion: Continue oxygen and pulmonary rehab Follow Up: 3 months ICD-9 : 496 ICD-10 : J44.9 05/10/2019 Visit Diagnosis Plan: Lymphoma involving lung Discussi on: Doing weekly lab and chemo ICD-9 : 202.82 ICD-10 : C85.99 05/10/2019 Appointment: Neela Hyman WPtel: [address] [place], [place] [phone] he called 04/14/19-- he was at physical [...] : J44.1 03/29/2019 Appointment: Neela Hyman WPtel: [address] [place] [address] Hospital Follow Up 03/29/2019 Appointment: Neela Hyman WPtel: [address] [place], [place] [phone] [place] INJECTION 03/04/2019 Visit Diagnosis Plan: Other nonspecific abnormal findi ng of lung field Discussion: Referral to pulmonology--will likely need bronchoscopy--path results discussed ICD-9 : 786.6 ICD-10 : R91.8 01/05/2019 Visit Diagnosis Plan: Chronic obstructiv e pulmonary disease with (acute) exacerbation Discussion: Increase SVNS with duoneb to QID Prednisone taper ICD-9 : 491.21 ICD-10 : J44.1 01/05/2019 Appointment: Neela Hyman WPtel: [address] [place], [place] [phone] FOLLOW UP 01/05/2019 Patient Education: prednisone- OptimizeRX Coupon [id number] https://www.[employer].com/samplemd/resources/getResource/61/w2xc6984-825o-7b10-kp Completed 01/05/2019 Care Plan: Referral Order SNOMED-CT : 30 [id number] Pending 01/05/2019 Appointment: Neela Hyman WPtel: [address] [place], [place] [phone] [place] CANCELED 12/21/2018 Visit Diagnosis Plan: Solitary pulmonary nodule Discus esmer: CT guided needle biopsy of RUL lung mass ICD-9 : 793.11 ICD-10 : R91.1 12/09/2018 Visit Diagnosis Plan: Tinea corporis Discussion: Diflu can--hold simvastatin and fenofibrate while taking ICD-9 : 110.5 ICD-10 : B35.4 12/09/2018 Appointment: Neela Hyman WPtel: [address] [place] [address] [place] FOLLOW UP 12/09/2018 Appointment: Gely Harp [address] [place] [address] [place] NO SHOW 12/01/2018 Visit Diagnosis Plan: [...] : J44.9 11/24/2018 Appointment: Neela Hyman WPtel: [address] [place], [place] [phone] [place] FOLLOW UP 11/24/2018 Care Plan: PET IMAGE FULL BODY LOINC : 4 2711-2 Pending 11/24/2018 Appointment: Neela Hyman WPtel: [address] [place], [place] [phone] [place] Consult 09/21/2018 Visit Diagnosis Plan: Pneumonia, unspecified organism Discussion: Patient clinically improved. Recent CT scan from 09/07 showed unresolved right upper lobe pneumonia. Finished another 7 days of levaquin. Will repeat CBC early next week. Order sent with patient to get done at [facility]. FU CT recommended in 4 weeks. Patient states understanding. ICD-9 : 486 ICD-10 : J18.9 09/16/2018 Appointment: Amita Henderson [facility] [id number] FOLLOW UP 09/16/2018 Visit Diagnosis Plan: Pneumonia, unspecified organism Discussion: Clinically patient feels and looks much better but need CT scan of chest due to ongoing round pneumonia in association with his known lymphoma ICD-9 : 486 ICD-10 : J18.9 09/03/2018 Appointment: Neela Hyman WPtel: [phone] [facility] FOLLOW UP 09/03/2018 Care [...] before upcoming appt. with doctor. [facility]- CBC, CMP, TSH, Lipid, A1C ICD-9 : 250.02 ICD-10 : E11.65 08/27/2018 Visit Diagnosis Plan: Essential (primary) hypertension Discussion: Stable on diltiazem. Jc vieyra. Had ECHO last week. Requesting copies of results from cardiology. ICD-9 : 401.9 ICD-10 : I10 08/27/2018 Appointment: Amita Henderson [facility] [id number] FOLLOW UP 08/27/2018 Visit Diagnosis Plan: Other [...] ICD-10 : J44.1 08/13/2018 Appointment: Amita Henderson [facility] [id number] [facility] FOLLOW UP 08/13/2018 Appointment: Amita Henderson [facility] [id number] CANCELED 08/13/2018 Patient Education: prednisone- OptimizeRX Coupon [id number] https://www.Gigalocal/sampleSun[employer]/resources/getResource/61/kr13tn2q-2n71-1vv1-8s Completed 08/13/2018 Visit Diagnosis Plan: Other specified [...] ICD-10 : J18.9 08/11/2018 Appointment: Amita Henderson [address] [place], [place] [address] ACUTE ILLNESS 08/11/2018 Care Plan: CHEST X-RAY 2VW FRONTAL&LATL LOINC : 01986-2 Pending 07/20/2018 Visit Diagnosis Plan: Dyspnea, unspecified Discussion: CXR- to be completed at the hospital. Will call with results and any adjustments in plan. Solumedrol 125 administered in clinic Prednisone 20 mg BID x 5 days- start tomorrow ICD-9 : 786.09 ICD-10 : R06.00 07/16/2018 Appointment: Amita Henderson [address] [place], [place] [address] ACUTE ILLNESS 07/16/2018 Patient Education: prednisone- OptimizeRX Coupon [id number] https://www.Gigalocal/samplemd/resources/getResource/61/61s9t5pl-ue74-1sa4-l7 Completed 07/16/2018 Visit Diagnosis Plan: Acute bronchitis due to other sp ecified organisms Discussion: Kenalog 40 mg IM administered in clinic. Doxycycline called into [facility]. Take as directed. Continue nebulizer and Trelegy. Follow up if symptoms are not improving with treatment regimen. Patient states understanding of all instruction. ICD-9 : 466.0 ICD-10 : J20.8 07/13/2018 Appointment: Amita Henderson [address] [place], [place] [address] ACUTE ILLNESS 07/13/2018 Patient Education: doxycycline hyclate- OptimizeRX Cou saritha [id number] https://www.[employer].Mouth Party/samplemd/resources/getResource/61/9a523o28-8t0t-7976-2g Completed 07/13/2018 Care Plan: [place] : [address]-2 Pending 07/13/2018 Care Plan: CBC Pending 07/13/2018 Care Plan: A1C HPLC LOINC : 64562-0 Pending 07/13/2018 Visit Diagnosis Plan: Mixed hyperlipidemia [...] : J44.9 06/03/2018 Appointment: Neela Hyman WPtel: [address] [place] [address] [place] FOLLOW UP 06/03/2018 Visit Diagnosis Plan: [...] ICD-10 : J44.9 05/04/2018 Appointment: Gely Harp [address] [place] [address] ACUTE ILLNESS 05/04/2018 Visit Diagnosis Plan: Localized edema Discussion: Cont inue lasix and potassium at every other day Recheck lab and fwup in 3mos Follow Up: 3 months ICD-9 : 782.3 ICD-10 : R60.0 03/03/2018 Appointment: Neela Hyman WPtel: [address] [place] [address] [place] FOLLOW UP 03/03/2018 Patient Education: Patient Medication Summary Completed 03/03/2018 Visit Diagnosis Plan: Localized edema Discussion: Finch ge lasix and potassium to every other day Check Chem 7 in 2 weeks and fwup ICD-9 : 782.3 ICD-10 : R60.0 02/17/2018 Appointment: Neela Hyman WPtel: [address] [place] [address] FOLLOW UP 02/17/2018 Patient Education: Patient Medication [...] Appointment: Neela Hyman WPtel: [phone] [phone] [place] FOLLOW UP 02/10/2018 Patient Education: Patient [...] I10 11/05/2017 Appointment: Neela Hyman WPtel: [phone] [facility] [place] FOLLOW UP 11/05/2017 Patient Education: Patient Medication Summary Completed 11/05/2017 Patient Education: Patient Medication Summary Completed 11/03/2017 Care Plan: [place] : [address]-5 Pending 11/03/2017 Care Plan: LIPID PANEL LOINC : 11894-1 Pending 11/03/2017 Care Plan: CBC Pending 11/03/2017 Care Plan: A1C HPLC LOINC : 92869-4 Pending 11/03/2017 Visit Diagnosis Plan: Allergic urticaria [...] ICD-10 : L50.0 09/09/2017 Appointment: Gely Harp [address] [place], [place] [address] ACUTE ILLNESS 09/09/2017 Patient Education: Patient Medication [...] ICD-10 : K29.00 08/07/2017 Appointment: Gely Harp [facility] [facility] Follow Up 08/07/2017 Patient Education: Patient Medication Summary Completed 08/07/2017 Visit Diagnosis Plan: Essential (primary) hypertension Discussion: Increase Cardizem CD to 360mg daily ICD-9 : 401.9 ICD-10 : I10 08/04/2017 Visit Diagnosis Plan: Type 2 diabetes mellitus without complications Discussion: Accuchecks daily Lab discussed Continue current meds ICD-9 : 250.00 ICD-10 : E11.9 08/04/2017 Appointment: Ne[facility]yman [facility]el: [phone] [facility] [id number] FOLLOW UP 08/04/2017 Patient Education: Patient Medication Summary Completed 08/04/2017 Patient Education: Patient Medication Summary Completed 07/31/2017 Care Plan: [place] : [address]-3 Pending 07/31/2017 Care Plan: ASSAY THYROID STIM HORMONE Pen ding 07/31/2017 Care Plan: LIPID PANEL LOINC : 74575-4 Pending 07/31/2017 Care Plan: CBC Pending 07/31/2017 Care Plan: A1C HPLC LOINC : 23360-6 Pending 07/31/2017 Patient Education: Patient Medication Summary Completed 06/19/2017 Patient Education: Patient Medication Summary Completed 06/09/2017 Care Plan: CT SOFT TISSUE [place]EC[place] : [address]68-3 Pending 06/09/2017 Visit Diagnosis Plan: Acute sialoadenitis [...] ICD-10 : B02.9 06/04/2017 Appointment: Gely Harp [address] [place], [place] [address] ACUTE ILLNESS 06/04/2017 Patient Education: Patient Medication [...] : B02.9 06/02/2017 [facility]ment[facility] [facility] 06/02/2017 Patient Education: Patient [...] E78.2 05/05/2017 [facility]ment: [facility] [phone] [facility] [facility] 05/05/2017 Patient Education: Patient Medication Summary Completed 05/05/2017 Patient Education: Patient Medication Summary Completed 05/01/2017 Care Plan: A1C HPLC [facility] : 97157-7 Pending 05/01/2017 Visit Diagnosis Plan: Impacted cerumen, [...] : J44.0 04/10/2017 Appointment: [facility] ACUTE ILLNESS 04/10/2017 Patient Education: Patient Medication Summary Completed 04/10/2017 Appointment: Neela Hyman WPtel: [address] [place], [place] [phone] [place] INJECTION 03/28/2017 Patient Education: Patient Medication [...] : I10 02/03/2017 Appointment: Neela Hyman WPtel: [address] [place], [place] [id number] FOLLOW UP 02/03/2017 Patient Education: Patient Medication Summary Completed 02/03/2017 Patient Education: Patient Medication Summary Completed 01/30/2017 Care Plan: COM[place] : [address]-3 Pending 01/30/2017 Care Plan: LIPID PANEL LOINC : 88088-2 Pending 01/30/2017 Care Plan: CBC Pending 01/30/2017 Care Plan: A1C HPLC LOINC : 46854-5 Pending 01/30/2017 Care Plan: ASSAY OF PSA [...] J44.9 10/30/2016 Appointment: Neela [facility]Ptel[facility] [phone] [facility] [place] 10/29 lm ~sl 10/30 confirmed~sl FOLLOW UP 11/2016 Patient Education: Patient Medication Summary Completed 10/30/2016 Patient Education: Patient Medication Summary Completed 10/24/2016 Visit Diagnosis Plan: Acute bronchitis, unspecified Di scussion: Patient sounds and looks much improved Continue current regimen Keep appt with Dr Levi for Friday Follow up PRN ICD-9 : 466.0 ICD-10 : J20.9 08/30/2016 Appointment: [facility] [facility] [facility] / rang and rang rang [...] : J20.9 08/27/2016 Appointment: Reinaldo [facility]amm[facility] [facility] [facility] 08/27/2016 Patient Education: Patient Medication Summary Completed 08/27/2016 Care Plan: Referral Order SNOMED-CT : 30 0649343 Pending 08/27/2016 Visit Diagnosis Plan: Type 2 [...] E78.2 07/02/2016 Appointment: Neela [facility]yman [facility]Ptel[facility] [phone] [facility] 07/01 rang and rang`sl FOLLOW UP 7 Patient Education: Patient Medication Summary Completed 07/02/2016 Patient Education: Patient Medication Summary Completed 06/27/2016 Care Plan: LIPID PANEL LOINC : 21296-0 Pending 06/27/2016 Care Plan: [place] : [address]-6 Pending 06/27/2016 Care Plan: A1C HPLC LOINC : 58196-6 Pending 06/27/2016 Visit Diagnosis Plan: Acute bronchitis, [...] ICD-10 : J20.9 06/14/2016 Appointment: Sammi Najera [address] [place], [place] [address] FOLLOW UP 06/14/2016 Patient Education: Patient Medication [...] ICD-10 : J20.9 06/13/2016 Appointment: Sammi Najera [address] [place], [place] [address] ACUTE ILLNESS 06/13/2016 Patient Education: Patient Medication Summary Completed 06/13/2016 Care Plan: CHEST X-RAY 2VW FRONTAL&LATL LOINC : 75600-5 Pending 06/13/2016 Visit Plan: Increase metoprolol to 100mg po BID BP readings and BP check in 1month 05/14/2016 Appointment: Neela Hyman [facility]Ptel: [facility] 05/13 rang and rang`sl FOLLOW UP 6 Patient Education: Patient Medication Summary Completed 05/14/2016 Visit Plan: Increase metoprolol to 50mg BID BP check in 1 week f/u BP appt 2 weeks consider musculoskeletal if pain returns 04/29/2016 Appointment: Neela Hyman WPtel: [address] [place], [place] [phone] 04/25 confimred~sl FOLLOW UP 04/29/2016 Patient Education: Patient Medication Summary Completed 04/29/2016 Visit Plan: Stat CT scan of abdomen/pelv is to look for stone Hydrate and use tramadol prn Increase metoprolol to 25mg po BID Will see urology pending CT scan results 04/22/2016 Appointment: Neela Hyman WPtel: [address] [place] [address] 04/17 confirmed-sp ACUTE ILLNESS 04/22/2016 Patient Education: [...] flu shot 04/01/2016 Appointment: Neela Hyman WPtel: [address] [place], [place] [phone] FOLLOW UP 04/01/2016 Patient Education: Patient Medication Summary Completed 04/01/2016 Patient Education: [facility] - Saving AutoInj - 18-64 - Dynamic Heber l ID Completed 04/01/2016 Patient Education: Patient Medication Summary Completed 03/28/2016 Care Plan: A1C HPLC LOINC : 24057-7 Pending 03/28/2016 Care Plan: [place] : [address]47[address]-5 Pending 03/28/2016 Visit Plan: Lab discussed Continue curre nt meds Accuchecks daily 11/30/2015 Appointment: Neela Hyman WPtel: [address] [place] [address] 11/28 confirmed~sl FOLLOW UP 11/30/2015 Patient Education: Patient Medication Summary Completed 11/30/2015 Appointment: Neela Hyman WPtel: [address] [place] [address] RESCHEDULED 11/28/2015 Patient Education: Patient Medication Summary Completed 11/23/2015 Care Plan: COM[place] : 97912-8 Pending 11/23/2015 Care Plan: LIPID PANEL LOINC : 49964-0 Pending 11/23/2015 Care Plan: CBC Pending 11/23/2015 Care Plan: A1C HPLC LOINC : 82419-5 Pending 11/23/2015 Visit Plan: Lab discussed Accuchecks richard ly Continue current meds Cymbalta helping with feet and mood 08/29/2015 Appointment: Neela Hyman WPtel: [address] [place], [place] [phone] FOLLOW UP 08/29/2015 Patient Education: Patient Medication Summary Completed 08/29/2015 Visit Plan: Check CXR Stop all steroids and steroid inhalers Use SVN with but change to duoneb Add singulair for allergy etiology Change fluoxetine to cymbalta 60mg daily Viagra samples given to try prn--warned of no nitrates 08/14/2015 Appointment: Neela Hyman WPtel: [address] [place], [place] [phone] lm to reschedule ~sl 07/27 lm ~sl 08/09 busy 08/10 fer rosales-riley Annual Well Visit 08/14/2015 Patient Education: Patient Medication Summary Completed 08/14/2015 Care Plan: CHEST X-RAY 2VW FRONTAL&LATL LOINC : 70613-8 Ordered 08/14/2015 Visit Plan: Decadron 8mg given [...] as expected 08/09/2015 Appointment: Reinaldo Sammi [address] [facility] ER Follow UP 08/09/2015 Patient Education: Patient Medication Summary Completed 08/09/2015 Patient Education: [facility] - Saving AutoInj - 18-64 - Dynamic [...] with it 05/22/2015 Appointment: Neela Hyman WPtel: [address] [place], [place] [phone] 05/17 confirmed~sl FOLLOW UP 05/22/2015 Patient Education: Patient Medication Summary Completed 05/22/2015 Patient Education: Patient Medication Summary Completed 05/15/2015 Visit Plan: Obtain EMGs done at [place] from when fractured left arm Lab discussed Accuchecks daily 02/13/2015 Appointment: Neela Hyman WPtel: [address] [place], [place] [phone] 02/10 confrimed FOLLOW UP 02/13/2015 Patient Education: Patient Medication Summary Completed 02/13/2015 Patient Education: Patient Medication Summary Completed 02/09/2015 Visit Plan: discussed lab add fenofibrat e 134mg po daily recheck fasting lab in 3 months, CBC, CMP, Lipids, hgb AIC 11/07/2014 Appointment: Neela Hymna WPtel: [address] [place], [place] [phone] 11/04 appt confirmed cn FOLLOW UP 015 Patient Education: Patient Medication Summary Completed 11/07/2014 Patient Education: Patient Medication Summary Completed 11/03/2014 Visit Plan: Continue loratadine 10mg richard ly Notify if symptoms return 10/04/2014 Appointment: Neela Hyman WPtel: [address] [place] [address] confirmed on 10/03 at 2:42pm FOLLOW UP 09/23 Patient Education: Patient Medication Summary Completed 10/04/2014 Appointment: Neela Hyman WPtel: [address] [place] [address] ACUTE ILLNESS 09/28/2014 Appointment: Loren Garza WPtel: [address] [place] [address] FOLLOW UP 09/22/2014 Patient Education: Patient Medication Summary Completed 09/22/2014 Appointment: Loren Garza WPtel: [address] [place] [address] ACUTE ILLNESS 09/21/2014 Patient Education: Patient Medication Summary Completed 09/21/2014 Patient Education: [facility] - Saving AutoInj - 18+ - Dynamic Portal ID Completed 09/21/2014 Visit Plan: Lab discussed Continue daily accuchecks Continue current meds 06/28/2014 Appointment: Neela Hyman WPtel: [address] [place] [address] FOLLOW UP 06/28/2014 Patient Education: Patient Medication Summary Completed 06/28/2014 Patient Education: Patient Medication Summary Completed 06/23/2014 Appointment: Sarah Sunshine WPtel: [address] [place] [address] ACUTE ILLNESS 06/10/2014 Patient Education: Patient Medication Summary Completed 06/10/2014 Patient Education: [facility] - Saving AutoInj - 18+ - Dynamic Portal ID Completed 06/10/2014 Visit Plan: Lab discussed Continue daily accuchecks Continue current meds 03/29/2014 Appointment: Neela Hyman WPtel: [address] [place] [address] FOLLOW UP 03/29/2014 Patient Education: Patient Medication Summary Completed 03/29/2014 Patient Education: Patient Medication Summary Completed 03/23/2014 Visit Plan: Lab discussed Continue curre nt meds and accuchecks See surgery for removal of hand lesion 11/30/2013 Appointment: Neela Hyman WPtel: [address] [place] [address] 11/29 no answer FOLLOW UP 11/30/2013 Patient Education: Patient Medication Summary Completed 11/30/2013 Visit Plan: Lab discussed Continue curre nt meds 08/03/2013 Appointment: Neela Hyman WPtel: [address] [place] [address] FOLLOW UP 08/03/2013 Patient Education: Patient Medication Summary Completed 08/03/2013 Visit Plan: Lab Discussed Will continue current meds and pt will get back on diet/exercise Check lab in 4mos and fwup 04/06/2013 Appointment: Neela Hyman WPtel: [address] [place] [address] FOLLOW UP 04/06/2013 Patient Education: Patient Medication Summary Completed 04/06/2013 Visit Plan: Lab discussed Continue daily accuchecks 12/01/2012 Appointment: Neela Hyman WPtel: [address] [place] [address] 11/30 no answer FOLLOW UP 12/01/2012 Patient Education: Patient Medication Summary Completed 12/01/2012 Visit Plan: Continue current meds and da russell accuchecks Lab discussed 08/04/2012 Appointment: Neela Hyman WPtel: [address] [place] [address] FOLLOW UP 08/04/2012 Patient Education: Patient Medication Summary Completed 08/04/2012 Appointment: Neela Hyman WPtel: [address] [place], [place] [phone] [facility] 06/01/2012 Patient Education: Patient Medication Summary Completed 06/01/2012 Appointment: Janet Jean Baptiste WPtel: [address] [place], [place] [phone] FOLLOW UP 05/29/2012 Patient Education: Patient Medication Summary Completed 05/29/2012 Visit Plan: pt states Dr. Hyman told h is to increase his Prozac dose while she was talking to her at [facility]. Discussed that pt. should not increase or decrease dosage without Dr's knowledge. Pt. will seek hearing test here in town at the hearing aid place on [address]. Discussed that ear pain is likely caused by sinus pressure. Pt. will notify if no improvement. 05/25/2012 Appointment: Janet Jean Baptiste WPtel: [address] [place] [address] ACUTE ILLNESS 05/25/2012 Patient Education: Patient Medication Summary Completed 05/25/2012 Visit Plan: Continue current meds Contin ue daily accuchecks but alternate times Increase fish oil to 3gm daily 04/07/2012 Appointment: Neela Hyman WPtel: [address] [place], [place] [phone] 04/06 FOLLOW UP 04/07/2012 Patient Education: Patient Medication Summary Completed 04/07/2012 Appointment: Janet Jean Baptiste WPtel: [address] [place] [address] ACUTE ILLNESS 12/16/2011 Patient Education: Patient Medication Summary Completed 12/16/2011 Visit Plan: Increase 12/03/2011 Appointment: Neela Hyman WPtel: [address] [place], [place] [phone] [place] FOLLOW UP 12/03/2011 Patient Education: Patient Medication Summary Completed 12/03/2011 Visit Plan: Continue current meds Contin ue accuchecks 08/29/2011 Appointment: Neela Hyman WPtel: [address] [place], [place] [phone] [place] FOLLOW UP 08/29/2011 Patient Education: Patient Medication Summary Completed 08/29/2011 Visit Plan: Continue current meds except restart zocor 05/30/2011 Appointment: Neela Hymantel: [address] [place], [place] [phone] [place] FOLLOW UP 05/30/2011 Patient Education: Patient Medication Summary Completed 05/30/2011 Visit Plan: Continue tennis elbow strap May go back to weight-lifing--light weigts every other day 01/29/2011 Appointment: Neela Hyman WPtel: [address] [place], [place] [phone] [place] FOLLOW UP 01/29/2011 Patient Education: Patient Medication Summary Completed 01/29/2011 Visit Plan: Continue tennis elbow strap and anti-inflammatories 01/14/2011 Appointment: Neela Hyman WPtel: [address] [place] [address] FOLLOW UP 01/14/2011 Appointment: Janet Jean Baptiste WPtel: [address] [place] [address] NEW PATIENT 01/14/2011 Patient Education: Patient Medication Summary Completed 01/14/2011 Appointment: Neela Hyman WPtel: [address] [place] [address] FOLLOW UP 01/08/2011 Appointment: Neela Hyman WPtel: [address] [place] [address] FOLLOW UP 01/01/2011 Appointment: Neela Hyman WPtel: [address] [place], [place] [phone] UA 01/01/2011 Patient Education: Patient Medication Summary [...] 11/29/2010 Appointment: Janet Jean Baptiste WPtel: [address] [place] [address] ACUTE ILLNESS 11/29/2010 Patient Education: Patient Medication Summary Completed 11/29/2010 Visit Plan: Cont current meds Check CMP, Lipids, HbA1C 08/28/2010 Appointment: Neela Hyman WPtel: [address] [place] [address] FOLLOW UP 08/28/2010 Patient Education: Patient Medication Summary Completed 08/28/2010 Visit Plan: Cont current meds and accuch ecks Add Zocor 40mg q HS Check Lipids and HbA1C in 3mos 06/05/2010 Appointment: Neela Hyman WPtel: [address] [place] [address] FOLLOW UP 06/05/2010 Patient Education: Patient Medication Summary Completed 06/05/2010 Visit Plan: Check Lipids and HbA1C 02/05/2010 Appointment: Neela Hyman WPtel: [address] [place] [address] FOLLOW UP 02/05/2010 Patient Education: Patient Medication Summary Completed 02/05/2010 Visit Plan: HbA1C in 3mos. Continue Accu checks BID alternating times. Check HbA1C, CMP, Lipids 10/09/2009 Appointment: Neela Hyman WPtel: [address] [place] [address] FOLLOW UP 10/09/2009 Patient Education: Patient Medication Summary Completed 10/09/2009 Visit Plan: Saline nasal flushes prn. Ty lenol/Motrin prn headache. Notify if persists/symptoms worsening. 08/22/2009 Appointment: Neela Hyman WPtel: [address] [place] [address] ACUTE ILLNESS 08/22/2009 Patient Education: Patient Medication Summary Completed 08/22/2009 Referral: Aubrey Rand WPtel: [address] [place], [place] [phone] [place] Office will verfy his insurance then they will contact patient Completed Referral: Shahbaz Brennan WPtel: [address] [facility] [address] [id number] [place] Referral Completed Referral: Ion Levi [address] [id number] [place] Referral Appointment Requested Referral: Ion Levi [address] [facility] C[place]D [id number] [place] Referral Appointment Requested Instructions Comment . [...] with it . Obtain EMGs done at [place] from when fractured left arm Lab discussed [...] while she was talking to her at [facility]. Discussed that pt. should not increase or decrease dosage without Dr's knowledge. Pt. will seek hearing test here in town at the hearing aid place on [address]. Discussed that ear pain is likely caused [...]
[2019-12-09 09:26] LABS: CALCIUM 8.9 MG/DL (8.5-10.1)
[2019-12-09 09:28] LABS: GLUCOSE 183 MG/DL (70-105); TOTAL PROTEIN 6.5 GM/DL (6.4-8.2)
[2019-12-09 09:29] LABS: BILIRUBIN,TOTAL 0.5 MG/DL (0.1-1.0); CARBON DIOXIDE 24 MMOL/L (21-32)
[2019-12-09 09:31] LABS: ALKALINE PHOSPHATASE 52 U/L (40-136); CREATININE SERUM 0.96 MG/DL (0.60-1.30); GFR ESTIMATED > 60
[2019-12-09 09:32] LABS: BUN/CREATININE RATIO 16
--- OUTSIDE RECORDS SUMMARY | 2019-12-09 09:33 | XMS REPORT | Continuity of Care Document ---
Author Organization Unknown Address Unknown Phone Unavailable Allergies Active Description Code Type Severity Reaction Onset Reported/Identified Relationship to Patient Clinical Status Yes codeine [id number] Drug Allergy Unknown N/A 09/03/2005 Yes codeine [id number] Drug Allergy Mild RASH 03/29/2015 Yes codeine [id number] Drug Allergy Mild RASH, PATIENT H 03/29/2015 Medications There is no data. 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, UNSP, NODES OF ING RE JONA HARTMANN MD Ot E78.5 HYPERLIPIDEMIA, UNSPECIFIED JONA HARTMANN MD, Ot G47.33 OBSTRUCTIVE SLEEP APNEA (ADULT) (PEDIATR JONA HARTMANN MD Ot I10 ESSENTIAL (PRIMARY) HYPERTENSION JONA HARTMANN MD Ot J44.9 CHRONIC OBSTRUCTIVE PULMONARY DISEASE, U JONA HARTMANN MD Ot Z45.2 ENCOUNTER FOR ADJUSTMENT AND MANAGEMENT JONA HARTMANN MD Ot Z79.82 CUSTODIAL (CURRENT) USE OF ASPIRIN JONA HARTMANN MD Ot Z79.84 FANCY STITCHER (CURRENT) USE OF ORAL HYPOGLYC JONA HARTMANN MD Ot Z79.899 OTHER CUSTODIAL (CURRENT) DRUG THERAPY JONA HARTMANN MD Ot Z87.891 PERSONAL HISTORY OF NICOTINE DEPENDENCE 04/24/1032 JONA HARTMANN MD, Ot 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, EXTRNOD A 04/24/1032 JONA HARTMANN MD, Ot 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, UNSP, NODES OF ING RE 04/24/1032 JONA HARTMANN MD Ot E11.9 TYPE 2 DIABETES MELLITUS WITHOUT COMPLIC 04/24/1032 JONA HARTMANN MD, Ot E66.01 MORBID (SEVERE) OBESITY DUE TO EXCESS CA 04/24/1032 JONA HARTMANN MD, Ot E78.5 HYPERLIPIDEMIA, UNSPECIFIED 04/24/1032 JONA HARTMANN MD, Ot G47.33 OBSTRUCTIVE SLEEP APNEA (ADULT) (PEDIATR 04/24/1032 JONA HARTMANN MD Ot I10 ESSENTIAL (PRIMARY) HYPERTENSION 04/24/1032 JONA HARTMANN MD, Ot J44.9 CHRONIC OBSTRUCTIVE PULMONARY DISEASE, U 04/24/1032 JONA HARTMANN MD, Ot Z51.0 ENCOUNTER FOR ANTINEOPLASTIC RADIATION T 04/24/1032 JONA HARTMANN MD, Ot Z68.41 BODY MASS INDEX (BMI) 40.0-44.9, ADULT 04/24/1032 JONA HARTMANN MD, Ot Z79.82 FANCY STITCHER (CURRENT) USE OF ASPIRIN 04/24/1032 JONA HARTMANN MD, Ot Z79.84 CUSTODIAL (CURRENT) USE OF ORAL HYPOGLYC 04/24/1032 JONA HARTMANN MD, Ot Z79.899 OTHER FANCY STITCHER (CURRENT) DRUG THERAPY 04/24/1032 JONA HARTMANN MD, Ot Z87.891 PERSONAL HISTORY OF NICOTINE DEPENDENCE 09/17/2005 Ot 786.03 09/17/2005 Ot 786.09 09/17/2005 Ot 790.91 04/21/2012 Ot 813.01 FX OLECRAN PROC ULNA-CL 04/21/2012 Ot 813.05 FX RADIUS HEAD- CLOSED 04/21/2012 Ot 813.06 FX RADIUS NECK- CLOSED 04/21/2012 Ot 959.3 ELB/ FOREARM/WRST INJ NOS 04/21/2012 Ot E000.8 OTH ER EXTERNAL CAUSE STATUS 04/21/2012 Ot E849.0 ACC IDENT IN HOME 04/21/2012 Ot E885.9 FAL L FROM SLIPPING, TRIPPING, OR STUMBLI 09/23/2014 YANCI GARDUNO Ot 427.9 09/23/2014 YANCI GARDUNO Ot 786.07 09/23/2014 YANCI GARDUNO Ot 786.2 09/23/2014 YANCI GARDUNO Ot 427.9 09/23/2014 YANCI GARDUNO Ot 786.07 09/23/2014 VANBECELAERE, YANCI M BELLOWS TESTER Ot 786.2 09/28/2014 VANBECELAERE, YANCI M BELLOWS TESTER Ot 427.9 09/28/2014 VANBECELAERE, YANCI M BELLOWS TESTER Ot 786.07 09/28/2014 VANBECELAERE, YANCI M BELLOWS TESTER Ot 786.2 10/22/2014 VANBECELAERE, YANCI M BELLOWS TESTER Ot 427.9 10/22/2014 VANBECELAERE, YANCI M BELLOWS TESTER Ot 786.07 10/22/2014 VANBECELAERE, YANCI M BELLOWS TESTER Ot 786.2 03/29/2015 FABI EVERETT, ANDREI Jon Ot Z01.818 03/29/2015 FABI EVERETT, ANDREI P Ot Z01.818 03/29/2015 FABI EVERETT, ANDREI Jon Ot Z01.818 03/29/2015 FABI EVERETT, ANDREI Jon Ot E78.5 HYPERLIPIDEMIA, UNSPECIFIED 03/29/2015 FABI EVERETT, ANDREI Jon Ot G56.02 CARPAL TUNNEL SYNDROME, LEFT UPPER LIMB 03/29/2015 FABI EVERETT, ANDREI Jon Ot I1 0 ESSENTIAL (PRIMARY) HYPERTENSION 03/29/2015 FABI EVERETT, ANDREI Jon Ot Z11.2 ENCOUNTER FOR SCREENING FOR OTHER BACTER 03/29/2015 ANDREI DUNLAP MD Ot Z79.899 OTHER CUSTODIAL (CURRENT) DRUG THERAPY 03/29/2015 ANDREI DUNLAP MD Ot Z87.891 PERSONAL HISTORY OF NICOTINE DEPENDENCE 08/09/2015 VANBECELAERE, YANCI M BELLOWS TESTER Ot 427.9 08/09/2015 VANBECELAERE, YANCI M BELLOWS TESTER Ot 786.07 08/09/2015 VANBECELAERE, YANCI M BELLOWS TESTER Ot 786.2 08/09/2015 FABI EVERETT, ANDREI P Ot Z01.818 08/14/2015 VANBECELAERE, YANCI M BELLOWS TESTER Ot 427.9 08/14/2015 VANBECELAERE, YANCI M BELLOWS TESTER Ot 786.07 08/14/2015 VANBECELAERE, YANCI M BELLOWS TESTER Ot 786.2 08/14/2015 FABI EVERETT, ANDREI P Ot Z01.818 10/17/2015 NEELA HYMAN DO Ot R05 COUGH 10/17/2015 ORENDER DO, NEELA S Ot R06.2 WHEEZING 04/03/2016 ORENDER DO, NEELA S Ot R05 COUGH 04/03/2016 NURISNDER DO, NEELA S Ot R06.2 WHEEZING 04/22/2016 YANCI GARDUNO BELLOWS TESTER Ot 427.9 CARDIAC DYSRHYTHMIA NOS 04/22/2016 VANJEZELAEMAYUR, YANCI M BELLOWS TESTER Ot 786.07 WHEEZING 04/22/2016 VANJEZELAEYANCI MERCHANT M BELLOWS TESTER Ot 786.2 COUGH 04/22/2016 FABI EVERETT, ANDREI Jon Ot Z01.818 ENCOUNTER FOR OTHER PREPROCEDURAL EXAMIN 04/22/2016 ORENDER DO, NEELA S Ot R05 COUGH 04/22/2016 ORENDER DO, NEELA S Ot R06.2 WHEEZING 05/25/2016 NURSINDER DO, NEELA S Ot R05 COUGH 05/25/2016 ORENDER DO, NEELA S Ot R06.2 WHEEZING 05/25/2016 ORENDER DO, NEELA S Ot R10.84 GENERALIZED ABDOMINAL PAIN 05/25/2016 MICHELLE FONTENOT MD Ot E11 .9 TYPE 2 DIABETES MELLITUS WITHOUT COMPLIC 05/25/2016 MICHELLE FONTENOT MD Ot I10 ESSENTIAL (PRIMARY) HYPERTENSION 05/25/2016 MICHELLE FONTENOT MD Ot J06 .9 ACUTE UPPER RESPIRATORY INFECTION, UNSPE 05/25/2016 MICHELLE FONTENOT MD Ot R05 COUGH 05/25/2016 MICHELLE FONTENOT MD Ot Z79 .4 CUSTODIAL (CURRENT) USE OF INSULIN 05/25/2016 MICHELLE FONTENOT MD Ot Z79.82 CUSTODIAL (CURRENT) USE OF ASPIRIN 05/25/2016 MICHELLE FONTENOT MD Ot Z79.84 CUSTODIAL (CURRENT) USE OF ORAL HYPOGLYC 05/25/2016 MICHELLE FONTENOT MD Ot Z79.899 OTHER CUSTODIAL (CURRENT) DRUG THERAPY 05/25/2016 MICHELLE FONTENOT MD Ot Z87.891 PERSONAL HISTORY OF NICOTINE DEPENDENCE 05/28/2016 MICHELLE FONTENOT MD Ot E11 .9 TYPE 2 DIABETES MELLITUS WITHOUT COMPLIC 05/28/2016 MICHELLE FONTENOT MD Ot I10 ESSENTIAL (PRIMARY) HYPERTENSION 05/28/2016 MICHELLE FONTENOT MD Ot J06 .9 ACUTE UPPER RESPIRATORY INFECTION, UNSPE 05/28/2016 MICHELLE FONTENOT MD Ot R05 COUGH 05/28/2016 MICHELLE FONTENOT MD Ot Z79 .4 FANCY STITCHER (CURRENT) USE OF INSULIN 05/28/2016 MICHELLE FONTENOT MD Ot Z79.82 CUSTODIAL (CURRENT) USE OF ASPIRIN 05/28/2016 MICHELLE FONTENOT MD Ot Z79.84 FANCY STITCHER (CURRENT) USE OF ORAL HYPOGLYC 05/28/2016 MICHELLE FONTENOT MD Ot Z79.899 OTHER CUSTODIAL (CURRENT) DRUG THERAPY 05/28/2016 MICHELLE FONTENOT MD Ot Z87.891 PERSONAL HISTORY OF NICOTINE DEPENDENCE 05/28/2016 MICHELLE FONTENOT MD Ot E11 .9 TYPE 2 DIABETES MELLITUS WITHOUT COMPLIC 05/28/2016 MICHELLE FONTENOT MD Ot I10 ESSENTIAL (PRIMARY) HYPERTENSION 05/28/2016 MICHELLE FONTENOT MD Ot J06 .9 ACUTE UPPER RESPIRATORY INFECTION, UNSPE 05/28/2016 MICHELLE FONTENOT MD Ot R05 COUGH 05/28/2016 MICHELLE FONTENOT MD Ot Z79 .4 CUSTODIAL (CURRENT) USE OF INSULIN 05/28/2016 MICHELLE FONTENOT MD Ot Z79.82 FANCY STITCHER (CURRENT) USE OF ASPIRIN 05/28/2016 MICHELLE FONTENOT MD Ot Z79.84 CUSTODIAL (CURRENT) USE OF ORAL HYPOGLYC 05/28/2016 MICHELLE FONTENOT MD Ot Z79.899 OTHER CUSTODIAL (CURRENT) DRUG THERAPY 05/28/2016 MICHELLE FONTENOT MD Ot Z87.891 PERSONAL HISTORY OF NICOTINE DEPENDENCE 06/14/2016 NEELA HYMAN DO Ot R10.84 GENERALIZED ABDOMINAL PAIN 06/14/2016 BROCK SCHMIDT HEAD BANDER AND LINER OPERATOR Ot R05 COUGH 06/14/2016 BROCK SCHMIDT HEAD BANDER AND LINER OPERATOR Ot R06.2 WHEEZING 06/19/2016 BROCK SCHMIDT HEAD BANDER AND LINER OPERATOR Ot R05 COUGH 06/19/2016 BROCK SCHMIDT HEAD BANDER AND LINER OPERATOR Ot R06.2 WHEEZING 07/23/2016 BROCK SCHMIDT HEAD BANDER AND LINER OPERATOR Ot R05 COUGH 07/23/2016 BROCK SCHMIDT HEAD BANDER AND LINER OPERATOR Ot R06.2 WHEEZING 08/15/2016 Ot 285.9 08/15/2016 Ot 790.29 08/15/2016 FABI EVERETT, ANDREI Jon Ot Z01.818 ENCOUNTER FOR OTHER PREPROCEDURAL EXAMIN 08/15/2016 BROCK SCHMIDT Gema HEAD BANDER AND LINER OPERATOR Ot R05 COUGH 08/15/2016 BROCK SCHMIDT HEAD BANDER AND LINER OPERATOR Ot R06.2 WHEEZING 08/15/2016 VANYANCI MCDONOUGH BELLOWS TESTER Ot 427.9 CARDIAC DYSRHYTHMIA NOS 08/15/2016 VANJEZSIMONA IZQUIERDOSA M BELLOWS TESTER Ot 786.07 WHEEZING 08/15/2016 VANJEZSIMONA IZQUIERDOSA M BELLOWS TESTER Ot 786.2 COUGH 08/15/2016 FABI EVERETT, ANDREI Jon Ot Z01.818 ENCOUNTER FOR OTHER PREPROCEDURAL EXAMIN 08/15/2016 ORENDER DO, NEELA S Ot R05 COUGH 08/15/2016 NURISNDER DO, NEELA S Ot R06.2 WHEEZING 08/15/2016 ORENDER DO, NEELA S Ot R10.84 GENERALIZED ABDOMINAL PAIN 08/15/2016 BROCK SCHMIDT Gema HEAD BANDER AND LINER OPERATOR Ot R05 COUGH 08/15/2016 BROCK SCHMIDT Gema HEAD BANDER AND LINER OPERATOR Ot R06.2 WHEEZING 09/24/2016 ORENDER DO, NEELA S Ot R05 COUGH 09/24/2016 ORENDER DO, NEELA S Ot R06.2 WHEEZING 09/24/2016 ORENDER DO, NEELA S Ot R10.84 GENERALIZED ABDOMINAL PAIN 09/24/2016 LALIT SCHMIDTHANSA Ribeiro HEAD BANDER AND LINER OPERATOR Ot R05 COUGH 09/24/2016 BROCK SCHMIDT Gema HEAD BANDER AND LINER OPERATOR Ot R06.2 WHEEZING 09/24/2016 FLAKITA DOHERTY DO Ot E11. 9 TYPE 2 DIABETES MELLITUS WITHOUT COMPLIC 09/24/2016 FLAKITA DOHERTY DO Ot I10 ESSENTIAL (PRIMARY) HYPERTENSION 09/24/2016 FLAKITA DOHERTY DO Ot R06. 00 DYSPNEA, UNSPECIFIED 10/09/2016 FLAKITA DOHERTY DO Ot E11. 9 TYPE 2 DIABETES MELLITUS WITHOUT COMPLIC 10/09/2016 FLAKITA DOHERTY DO Ot I10 ESSENTIAL (PRIMARY) HYPERTENSION 10/09/2016 FLAKITA DOHERTY DO Ot R06. 00 DYSPNEA, UNSPECIFIED 10/10/2016 FLAKITA DOHERTY DO Ot E11. 9 TYPE 2 DIABETES MELLITUS WITHOUT COMPLIC 10/10/2016 FLAKITA DOHERTY DO Ot G47. 33 OBSTRUCTIVE SLEEP APNEA (ADULT) (PEDIATR 10/10/2016 BESSY DOFLAKITA Ot I10 ESSENTIAL (PRIMARY) HYPERTENSION 10/10/2016 FLAKITA DOHERTY DO M Ot R06. 02 SHORTNESS OF BREATH 10/15/2016 FLAKITA DOHERTY DO Ot E11. 9 TYPE 2 DIABETES MELLITUS WITHOUT COMPLIC 10/15/2016 FLAKITA DOHERTY DO Ot I10 ESSENTIAL (PRIMARY) HYPERTENSION 10/15/2016 FLAKITA DOHERTY DO M Ot R06. 00 DYSPNEA, UNSPECIFIED 11/21/2016 FLAKITA DOHERTY DO Ot E11. 9 TYPE 2 DIABETES MELLITUS WITHOUT COMPLIC 11/21/2016 FLAKITA DOHERTY DO Ot G47. 33 OBSTRUCTIVE SLEEP APNEA (ADULT) (PEDIATR 11/21/2016 FLAKITA DOHERTY DO M Ot I10 ESSENTIAL (PRIMARY) HYPERTENSION 11/21/2016 FLAKITA DOHERTY DO M Ot R06. 02 SHORTNESS OF BREATH 12/12/2016 FLAKITA DOHERTY DO Ot E11. 9 TYPE 2 DIABETES MELLITUS WITHOUT COMPLIC 12/12/2016 FLAKITA DOHERTY DO M Ot I10 ESSENTIAL (PRIMARY) HYPERTENSION 12/12/2016 FLAKITA DOHERTY DO Ot R06. 00 DYSPNEA, UNSPECIFIED 01/01/2017 FLAKITA DOHERTY DO Ot E11. 9 TYPE 2 DIABETES MELLITUS WITHOUT COMPLIC 01/01/2017 FLAKITA DOHERTY DO Ot I10 ESSENTIAL (PRIMARY) HYPERTENSION 01/01/2017 FLAKITA DOHERTY DO M Ot R06. 00 DYSPNEA, UNSPECIFIED 01/12/2017 FLAKITA DOHERTY DO Ot E11. 9 TYPE 2 DIABETES MELLITUS WITHOUT COMPLIC 01/12/2017 FLAKITA DOHERTY DO M Ot I10 ESSENTIAL (PRIMARY) HYPERTENSION 01/12/2017 FLAKITA DOHERTY DO M Ot R06. 00 DYSPNEA, UNSPECIFIED 01/16/2017 FLAKITA DOHERTY DO M Ot E11. 9 TYPE 2 DIABETES MELLITUS WITHOUT COMPLIC 01/16/2017 FLAKITA DOHERTY DO M Ot I10 ESSENTIAL (PRIMARY) HYPERTENSION 01/16/2017 FLAKITA DOHERTY DO M Ot R06. 00 DYSPNEA, UNSPECIFIED 01/17/2017 BESSY DO, FLAKITA M Ot E11. 9 TYPE 2 DIABETES MELLITUS WITHOUT COMPLIC 01/17/2017 FLAKITA DOHERTY DO M Ot I10 ESSENTIAL (PRIMARY) HYPERTENSION 01/17/2017 FLAKITA DOHERTY DO M Ot R06. 00 DYSPNEA, UNSPECIFIED 01/17/2017 FLAKITA DOHERTY DO M Ot E11. 9 TYPE 2 DIABETES MELLITUS WITHOUT COMPLIC 01/17/2017 FLAKITA DOHERTY DO Ot I10 ESSENTIAL (PRIMARY) HYPERTENSION 01/17/2017 FLAKITA DOHERTY DO M Ot R06. 00 DYSPNEA, UNSPECIFIED 01/17/2017 BRAYAN BROCK N HEAD BANDER AND LINER OPERATOR Ot R05 COUGH 01/17/2017 BRAYANSANDEEPY Gema HEAD BANDER AND LINER OPERATOR Ot R06.2 WHEEZING 01/17/2017 BRAYANBROCK N HEAD BANDER AND LINER OPERATOR Ot R05 COUGH 01/17/2017 BRAYANBROCK HEAD BANDER AND LINER OPERATOR Ot R06.2 WHEEZING 02/22/2017 FLAKITA DOHERTY DO Ot E11. 9 TYPE 2 DIABETES MELLITUS WITHOUT COMPLIC 02/22/2017 FLAKITA DOHERTY DO Ot I10 ESSENTIAL (PRIMARY) HYPERTENSION 02/22/2017 FLAKITA DOHERTY DO M Ot R06. 00 DYSPNEA, UNSPECIFIED 02/25/2017 FLAKITA DOHERTY DO M Ot E11. 9 TYPE 2 DIABETES MELLITUS WITHOUT COMPLIC 02/25/2017 FLAKITA DOHERTY DO Ot I10 ESSENTIAL (PRIMARY) HYPERTENSION 02/25/2017 FLAKITA DOHERTY DO M Ot R06. 00 DYSPNEA, UNSPECIFIED 02/26/2017 FLAKITA DOHERTY DO M Ot E11. 9 TYPE 2 DIABETES MELLITUS WITHOUT COMPLIC 02/26/2017 FLAKITA DOHERTY DO Ot I10 ESSENTIAL (PRIMARY) HYPERTENSION 02/26/2017 FLAKITA DOHERTY DO M Ot R06. 00 DYSPNEA, UNSPECIFIED 02/28/2017 FLAKITA DOHERTY DO M Ot E11. 9 TYPE 2 DIABETES MELLITUS WITHOUT COMPLIC 02/28/2017 FLAKITA DOHERTY DO M Ot I10 ESSENTIAL (PRIMARY) HYPERTENSION 02/28/2017 ADOLPH DOHERTY DOSON M Ot R06. 00 DYSPNEA, UNSPECIFIED 04/29/2017 FLAKITA DOHERTY DO M Ot E11. 9 TYPE 2 DIABETES MELLITUS WITHOUT COMPLIC 04/29/2017 FALKITA DOHERTY DO M Ot I10 ESSENTIAL (PRIMARY) HYPERTENSION 04/29/2017 FLAKITA DOHERTY DO Ot R06. 00 DYSPNEA, UNSPECIFIED 05/21/2017 FLAKITA DOHERTY DO Ot E11. 9 TYPE 2 DIABETES MELLITUS WITHOUT COMPLIC 05/21/2017 FLAKITA DOHERTY DO Ot I10 ESSENTIAL (PRIMARY) HYPERTENSION 05/21/2017 FLAKITA DOHERTY DO Ot R06. 00 DYSPNEA, UNSPECIFIED 05/26/2017 FLAKITA DOHERTY DO Ot E11. 9 TYPE 2 DIABETES MELLITUS WITHOUT COMPLIC 05/26/2017 FLAKITA DOHERTY DO Ot I10 ESSENTIAL (PRIMARY) HYPERTENSION 05/26/2017 FLAKITA DOHERTY DO Ot R06. 00 DYSPNEA, UNSPECIFIED 05/28/2017 FLAKITA DOHERTY DO Ot E11. 9 TYPE 2 DIABETES MELLITUS WITHOUT COMPLIC 05/28/2017 FLAKITA DOHERTY DO Ot I10 ESSENTIAL (PRIMARY) HYPERTENSION 05/28/2017 FLAKITA DOHERTY DO Ot R06. 00 DYSPNEA, UNSPECIFIED 06/12/2017 YANCI GARDUNO BELLOWS TESTER Ot 427.9 CARDIAC DYSRHYTHMIA NOS 06/12/2017 VANSIMONA MCDONOUGHSA M BELLOWS TESTER Ot 786.07 WHEEZING 06/12/2017 VANSIMONA MCDONOUGHSA M BELLOWS TESTER Ot 786.2 COUGH 06/12/2017 FABI EVERETT, ANDREI Jon Ot Z01.818 ENCOUNTER FOR OTHER PREPROCEDURAL EXAMIN 06/12/2017 HERMES HYMAN DOLINE S Ot R05 COUGH 06/12/2017 HERMES HYMAN DOLINE S Ot R06.2 WHEEZING 06/12/2017 NURISNDER HERMES ARTHURLINE S Ot R10.84 GENERALIZED ABDOMINAL PAIN 06/12/2017 BROCK SCHMIDT HEAD BANDER AND LINER OPERATOR Ot R05 COUGH 06/12/2017 BROCK SCHMIDT HEAD BANDER AND LINER OPERATOR Ot R06.2 WHEEZING 06/12/2017 FLAKITA DOHERTY DO Ot E11. 9 TYPE 2 DIABETES MELLITUS WITHOUT COMPLIC 06/12/2017 FLAKITA DOHERTY DO Ot I10 ESSENTIAL (PRIMARY) HYPERTENSION 06/12/2017 FLAKITA DOHERTY DO Ot R06. 00 DYSPNEA, UNSPECIFIED 06/12/2017 FLAKITA DOHERTY DO Ot E11. 9 TYPE 2 DIABETES MELLITUS WITHOUT COMPLIC 06/12/2017 FLAKITA DOHERTY DO Ot I10 ESSENTIAL (PRIMARY) HYPERTENSION 06/12/2017 BESSYFLAKITA CAZARES DO Ot R06. 00 DYSPNEA, UNSPECIFIED 06/13/2017 CHENCHO, SAMMY R HEAD BANDER AND LINER OPERATOR Ot H93.8X1 OTHER SPECIFIED DISORDERS OF RIGHT EAR 06/13/2017 CHENCHO, SAMMY R HEAD BANDER AND LINER OPERATOR Ot M50.322 OTHER CERVICAL DISC DEGENERATION AT C5-C 06/13/2017 CHENCHO, SAMMY R HEAD BANDER AND LINER OPERATOR Ot R22.1 LOCALIZED SWELLING, MASS AND LUMP, NECK 06/13/2017 CHENCHO, SAMMY R HEAD BANDER AND LINER OPERATOR Ot H93.8X1 OTHER SPECIFIED DISORDERS OF RIGHT EAR 06/13/2017 CHENCHO, SAMMY R HEAD BANDER AND LINER OPERATOR Ot M50.322 OTHER CERVICAL DISC DEGENERATION AT C5-C 06/13/2017 CHENCHO, SAMMY R HEAD BANDER AND LINER OPERATOR Ot R22.1 LOCALIZED SWELLING, MASS AND LUMP, NECK 06/24/2017 NEELA HYMAN DO Ot E11.9 TYPE 2 DIABETES MELLITUS WITHOUT COMPLIC 06/24/2017 NEELA HYMAN DO S Ot I65.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 07/23/2017 CHENCHO, SAMMY R HEAD BANDER AND LINER OPERATOR Ot H93.8X1 OTHER SPECIFIED DISORDERS OF RIGHT EAR 07/23/2017 CHENCHO, SAMMY R HEAD BANDER AND LINER OPERATOR Ot M50.322 OTHER CERVICAL DISC DEGENERATION AT C5-C 07/23/2017 CHENCHO, SAMMY R HEAD BANDER AND LINER OPERATOR Ot R22.1 LOCALIZED SWELLING, MASS AND LUMP, [...] LOCALIZED ENLARGED LYMPH NODES 08/05/2017 IVY NUNN MD Ot Z79.82 FANCY STITCHER (CURRENT) USE OF ASPIRIN 08/05/2017 IVY NUNN MD Ot Z79.84 CUSTODIAL (CURRENT) USE OF ORAL HYPOGLYC 08/05/2017 IVY NUNN MD Ot Z87.19 PERSONAL HISTORY OF OTHER DISEASES OF 08/05/2017 IVY NUNN MD Ot Z87.820 PERSONAL HISTORY OF TRAUMATIC BRAIN INJU 08/05/2017 IVY NUNN MD, Ot Z87.891 PERSONAL HISTORY OF NICOTINE DEPENDENCE 08/05/2017 IVY NUNN MD Ot Z88.5 ALLERGY STATUS TO NARCOTIC AGENT STATUS 08/06/2017 IVY NUNN MD Ot E11.9 TYPE 2 DIABETES MELLITUS WITHOUT COMPLIC 08/06/2017 IVY NUNN MD Ot E78.00 PURE HYPERCHOLESTEROLEMIA, UNSPECIFIED 08/06/2017 IVY NUNN MD Ot F41.9 ANXIETY DISORDER, UNSPECIFIED 08/06/2017 IVY NUNN MD Ot I10 ESSENTIAL (PRIMARY) HYPERTENSION 08/06/2017 IVY NUNN MD Ot K21.9 GASTRO-ESOPHAGEAL REFLUX DISEASE WITHOUT 08/06/2017 IVY NUNN MD Ot M54.5 LOW BACK PAIN 08/06/2017 IVY NUNN MD Ot R10.12 LEFT UPPER QUADRANT PAIN 08/06/2017 IVY NUNN MD Ot R59.0 LOCALIZED ENLARGED LYMPH NODES 08/06/2017 IVY NUNN MD Ot Z79.82 CUSTODIAL (CURRENT) USE OF ASPIRIN 08/06/2017 IVY NUNN MD Ot Z79.84 FANCY STITCHER (CURRENT) USE OF ORAL HYPOGLYC 08/06/2017 IVY NUNN MD Ot Z87.19 PERSONAL HISTORY OF OTHER DISEASES OF 08/06/2017 IVY NUNN MD Ot Z87.820 PERSONAL HISTORY OF TRAUMATIC BRAIN INJU 08/06/2017 IVY NUNN MD Ot Z87.891 PERSONAL HISTORY OF NICOTINE DEPENDENCE 08/06/2017 IVY NUNN MD Ot Z88.5 ALLERGY STATUS TO NARCOTIC AGENT STATUS 08/08/2017 VANBECELAERE, YANCI M BELLOWS TESTER Ot 427.9 CARDIAC DYSRHYTHMIA NOS 08/08/2017 YANCI GARDUNO BELLOWS TESTER Ot 786.07 WHEEZING 08/08/2017 JOEYJEZYANCI IZQUIERDO BELLOWS TESTER Ot 786.2 COUGH 08/08/2017 FABI EVERETT, ANDREI Jon Ot Z01.818 ENCOUNTER FOR OTHER PREPROCEDURAL EXAMIN 08/08/2017 NURISNDER HERMES ARTHURLINE S Ot R05 COUGH 08/08/2017 NURISNDER DO NEELA S Ot R06.2 WHEEZING 08/08/2017 NURISNDER SETH ARTHURNEELA S Ot R10.84 GENERALIZED ABDOMINAL PAIN 08/08/2017 BROCK SCHMIDT HEAD BANDER AND LINER OPERATOR Ot R05 COUGH 08/08/2017 BROCK SCHMIDT APRN Ot R06.2 WHEEZING 08/08/2017 FLAKITA DOHERTY DO Ot E11. 9 TYPE 2 DIABETES MELLITUS WITHOUT COMPLIC 08/08/2017 FLAKITA DOHERTY DO Ot I10 ESSENTIAL (PRIMARY) HYPERTENSION 08/08/2017 FLAKITA DOHERTY DO Ot R06. 00 DYSPNEA, UNSPECIFIED 08/08/2017 FLAKITA DOHERTY DO Ot E11. 9 TYPE 2 DIABETES MELLITUS WITHOUT COMPLIC 08/08/2017 FLAKITA DOHERTY DO Ot I10 ESSENTIAL (PRIMARY) HYPERTENSION 08/08/2017 FLAKITA DOHERTY DO Ot R06. 00 DYSPNEA, UNSPECIFIED 08/08/2017 SAMMY PAIZ HEAD BANDER AND LINER OPERATOR Ot H93.8X1 OTHER SPECIFIED DISORDERS OF RIGHT EAR 08/08/2017 SAMMY PAIZ HEAD BANDER AND LINER OPERATOR Ot M50.322 OTHER CERVICAL DISC DEGENERATION AT C5-C 08/08/2017 SAMMY PAIZ HEAD BANDER AND LINER OPERATOR Ot R22.1 LOCALIZED SWELLING, MASS AND LUMP, NECK 08/08/2017 NEELA HYMAN DO S Ot E11.9 TYPE 2 DIABETES MELLITUS WITHOUT COMPLIC 08/08/2017 NEELA HYMAN DO S Ot I65.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 08/12/2017 JONA HARTMANN MD Ot I51.7 CARDIOMEGALY 08/12/2017 JONA HARTMANN MD Ot K76.0 FATTY (CHANGE OF) LIVER, NOT ELSEWHERE C 08/12/2017 JONA HARTMANN MD Ot R59.1 GENERALIZED ENLARGED LYMPH NODES 08/13/2017 MYLA CAMP MD Ot D17.1 BENIGN LIPOMATOUS NEOPLASM OF SKIN, SUBC 08/13/2017 MYLA CAMP MD, Ot R59.1 GENERALIZED ENLARGED LYMPH NODES 08/13/2017 MYLA CAMP MD Ot Z01.81 8 ENCOUNTER FOR OTHER PREPROCEDURAL EXAMIN 08/14/2017 MYLA CAPM MD, Ot D17.1 BENIGN LIPOMATOUS NEOPLASM OF SKIN, SUBC 08/14/2017 MYLA CAMP MD, Ot R59.1 GENERALIZED ENLARGED LYMPH NODES 08/14/2017 MYLA CAMP MD, Ot Z01.81 8 ENCOUNTER FOR OTHER PREPROCEDURAL EXAMIN 08/14/2017 MYLA CAMP MD, Ot 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, UNSP, NODES OF ING RE 08/14/2017 MYLA CAMP MD, Ot D17.1 BENIGN LIPOMATOUS NEOPLASM OF SKIN, SUBC 08/14/2017 MYLA CAMP MD Ot E11.9 TYPE 2 DIABETES MELLITUS WITHOUT COMPLIC 08/14/2017 MYLA CAMP MD Ot E78.00 PURE HYPERCHOLESTEROLEMIA, UNSPECIFIED 08/14/2017 MYLA CAMP MD Ot F41.9 ANXIETY DISORDER, UNSPECIFIED 08/14/2017 MYLA CAMP MD Ot G47.33 OBSTRUCTIVE SLEEP APNEA (ADULT) (PEDIATR 08/14/2017 MYLA CAMP MD Ot I10 ESSENTIAL (PRIMARY) HYPERTENSION 08/14/2017 MYLA CAMP MD Ot J44.9 CHRONIC OBSTRUCTIVE PULMONARY DISEASE, U 08/14/2017 MYLA CAMP MD, Ot Z79.82 CUSTODIAL (CURRENT) USE OF ASPIRIN 08/14/2017 MYLA CAMP MD Ot Z79.84 FANCY STITCHER (CURRENT) USE OF ORAL HYPOGLYC 08/14/2017 MYLA CAMP MD Ot Z79.89 9 OTHER CUSTODIAL (CURRENT) DRUG THERAPY 08/14/2017 MYLA CAMP MD, Ot Z87.89 1 PERSONAL HISTORY OF NICOTINE DEPENDENCE 08/21/2017 MYLA [...] U 08/21/2017 MYLA CAMP MD, Ot Z79.82 CUSTODIAL (CURRENT) USE OF ASPIRIN 08/21/2017 MYLA CAMP MD, Ot Z79.84 CUSTODIAL (CURRENT) USE OF ORAL HYPOGLYC 08/21/2017 MYLA CAMP MD, Ot Z79.89 9 OTHER CUSTODIAL (CURRENT) DRUG THERAPY 08/21/2017 MYLA CAMP MD, Ot Z87.89 1 PERSONAL HISTORY OF NICOTINE DEPENDENCE 09/07/2017 IVY NUNN MD, Ot E11.9 TYPE 2 DIABETES MELLITUS WITHOUT COMPLIC 09/07/2017 IVY NUNN MD, Ot E78.00 PURE HYPERCHOLESTEROLEMIA, UNSPECIFIED 09/07/2017 IVY NUNN MD, Ot F41.9 ANXIETY DISORDER, UNSPECIFIED 09/07/2017 IVY NUNN MD Ot I10 ESSENTIAL (PRIMARY) HYPERTENSION 09/07/2017 IVY NUNN MD Ot K21.9 GASTRO-ESOPHAGEAL REFLUX DISEASE WITHOUT 09/07/2017 IVY NUNN MD Ot M54.5 LOW BACK PAIN 09/07/2017 IVY NUNN MD Ot R10.12 LEFT UPPER QUADRANT PAIN 09/07/2017 IVY NUNN MD Ot R59.0 LOCALIZED ENLARGED LYMPH NODES 09/07/2017 IVY NUNN MD Ot Z79.82 FANCY STITCHER (CURRENT) USE OF ASPIRIN 09/07/2017 IVY NUNN MD Ot Z79.84 CUSTODIAL (CURRENT) USE OF ORAL HYPOGLYC 09/07/2017 IVY NUNN MD Ot Z87.19 PERSONAL HISTORY OF OTHER DISEASES OF TH 09/07/2017 IVY NUNN MD, Ot Z87.820 PERSONAL HISTORY OF TRAUMATIC BRAIN INJU 09/07/2017 IVY NUNN MD Ot Z87.891 PERSONAL HISTORY OF NICOTINE DEPENDENCE 09/07/2017 IVY NUNN MD Ot Z88.5 ALLERGY STATUS TO NARCOTIC AGENT STATUS 09/17/2017 SAMMY PAIZ HEAD BANDER AND LINER OPERATOR Ot H93.8X1 OTHER SPECIFIED DISORDERS OF RIGHT EAR 09/17/2017 МАРИНА PAIZON R HEAD BANDER AND LINER OPERATOR Ot M50.322 OTHER CERVICAL DISC DEGENERATION AT C5-C 09/17/2017 SAMMY PAIZ R HEAD BANDER AND LINER OPERATOR Ot R22.1 LOCALIZED SWELLING, MASS AND LUMP, [...] ADULT 09/17/2017 JONA HARTMANN MD Ot Z79.82 FANCY STITCHER (CURRENT) USE OF ASPIRIN 09/17/2017 JONA HARTMANN MD Ot Z79.84 CUSTODIAL (CURRENT) USE OF ORAL HYPOGLYC 09/17/2017 JONA HARTMANN MD Ot Z79.899 OTHER FANCY STITCHER (CURRENT) DRUG THERAPY 09/17/2017 JONA HARTMANN MD [...] ADULT 11/06/2017 JONA HARTMANN MD Ot Z79.82 CUSTODIAL (CURRENT) USE OF ASPIRIN 11/06/2017 JONA HARTMANN MD Ot Z79.84 FANCY STITCHER (CURRENT) USE OF ORAL HYPOGLYC 11/06/2017 JONA HARTMANN MD Ot Z79.899 OTHER FANCY STITCHER (CURRENT) DRUG THERAPY 11/06/2017 JONA HARTMANN MD [...] ADULT 11/07/2017 JONA HARTMANN MD Ot Z79.82 CUSTODIAL (CURRENT) USE OF ASPIRIN 11/07/2017 JONA HARTMANN MD Ot Z79.84 FANCY STITCHER (CURRENT) USE OF ORAL HYPOGLYC 11/07/2017 JONA HARTMANN MD Ot Z79.899 OTHER CUSTODIAL (CURRENT) DRUG THERAPY 11/07/2017 JONA HARTMANN MD Ot Z87.891 PERSONAL HISTORY OF NICOTINE DEPENDENCE 11/07/2017 JONA HARTMANN MD Ot C83.08 SMALL CELL B-CELL LYMPHOMA, LYMPH NODES 11/07/2017 JONA HARTMANN MD Ot E11.9 TYPE 2 DIABETES MELLITUS WITHOUT COMPLIC 11/07/2017 JONA HARTMANN MD Ot E66.01 MORBID (SEVERE) OBESITY DUE TO EXCESS CA 11/07/2017 JONA HARTMANN MD, Ot E78.5 HYPERLIPIDEMIA, UNSPECIFIED 11/07/2017 JONA HARTMANN MD Ot G47.33 OBSTRUCTIVE SLEEP APNEA (ADULT) (PEDIATR 11/07/2017 JONA HARTMANN MD Ot I10 ESSENTIAL (PRIMARY) HYPERTENSION 11/07/2017 JONA HARTMANN MD, Ot J44.9 CHRONIC OBSTRUCTIVE PULMONARY DISEASE, U 11/07/2017 JONA HARTMANN MD Ot Z68.41 BODY MASS INDEX (BMI) 40.0-44.9, ADULT 11/07/2017 JONA HARTMANN MD, Ot Z79.82 FANCY STITCHER (CURRENT) USE OF ASPIRIN 11/07/2017 JONA HARTMANN MD, Ot Z79.84 CUSTODIAL (CURRENT) USE OF ORAL HYPOGLYC 11/07/2017 JONA HARTMANN MD, Ot Z79.899 OTHER FANCY STITCHER (CURRENT) DRUG THERAPY 11/07/2017 JONA HARTMANN MD Ot Z87.891 PERSONAL HISTORY OF NICOTINE DEPENDENCE 11/21/2017 NEELA HYMAN DO Ot E11.9 TYPE 2 DIABETES MELLITUS WITHOUT COMPLIC 11/21/2017 NEELA HYMAN DO Ot I65.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 12/10/2017 MYLA CAMP MD Ot Z01.81 8 ENCOUNTER FOR OTHER PREPROCEDURAL EXAMIN 12/10/2017 MYLA CAMP MD Ot Z01.81 8 ENCOUNTER FOR OTHER PREPROCEDURAL EXAMIN 12/10/2017 MYLA CAMP MD Ot Z01.81 8 ENCOUNTER FOR OTHER PREPROCEDURAL EXAMIN 12/11/2017 MYLA CAMP MD Ot Z01.81 8 ENCOUNTER FOR OTHER PREPROCEDURAL EXAMIN 12/11/2017 YANCI GARDUNO Ot 427.9 CARDIAC DYSRHYTHMIA NOS 12/11/2017 YANCI GARDUNOP Ot 786.07 WHEEZING 12/11/2017 YANCI GARDUNOP Ot 786.2 COUGH 12/11/2017 FABI EVERETT, ANDREI Jon Ot Z01.818 ENCOUNTER FOR OTHER PREPROCEDURAL EXAMIN 12/11/2017 NEELA HYMAN DO S Ot R05 COUGH 12/11/2017 NEELA HYMAN DO S Ot R06.2 WHEEZING 12/11/2017 CRISTIANA ARTHUR NEELA S Ot R10.84 GENERALIZED ABDOMINAL PAIN 12/11/2017 BROCK SCHMIDT Gema HEAD BANDER AND LINER OPERATOR Ot R05 COUGH 12/11/2017 BRAYANBROCK Gema HEAD BANDER AND LINER OPERATOR Ot R06.2 WHEEZING 12/11/2017 FLAKITA DOHERTY DO Ot E11. 9 TYPE 2 DIABETES MELLITUS WITHOUT COMPLIC 12/11/2017 FLAKITA DOHERTY DO Ot I10 ESSENTIAL (PRIMARY) HYPERTENSION 12/11/2017 FLAKITA DOHERTY DO Ot R06. 00 DYSPNEA, UNSPECIFIED 12/11/2017 FLAKITA DOHERTY DO Ot E11. 9 TYPE 2 DIABETES MELLITUS WITHOUT COMPLIC 12/11/2017 FLAKITA DOHERTY DO Ot I10 ESSENTIAL (PRIMARY) HYPERTENSION 12/11/2017 FLAKITA DOHERTY DO Ot R06. 00 DYSPNEA, UNSPECIFIED 12/11/2017 SAMMY PAIZ HEAD BANDER AND LINER OPERATOR Ot H93.8X1 OTHER SPECIFIED DISORDERS OF RIGHT EAR 12/11/2017 SAMMY PAIZ HEAD BANDER AND LINER OPERATOR Ot M50.322 OTHER CERVICAL DISC DEGENERATION AT C5-C 12/11/2017 SAMMY PAIZ HEAD BANDER AND LINER OPERATOR Ot R22.1 LOCALIZED SWELLING, MASS AND LUMP, NECK 12/11/2017 NEELA HYMAN DO S Ot E11.9 TYPE 2 DIABETES MELLITUS WITHOUT COMPLIC 12/11/2017 CRISTIANA NEELA S Ot I65.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 12/11/2017 JONA HARTMANN MD Ot I51.7 CARDIOMEGALY 12/11/2017 JONA HARTMANN MD Ot K76.0 FATTY (CHANGE OF) LIVER, NOT ELSEWHERE C 12/11/2017 JONA HARTMANN MD Ot R59.1 GENERALIZED ENLARGED LYMPH NODES 12/11/2017 JONA HARTMANN MD Ot E11.9 TYPE 2 DIABETES MELLITUS WITHOUT COMPLIC 12/11/2017 JONA HARTMANN MD Ot E66.01 MORBID (SEVERE) OBESITY DUE TO EXCESS CA 12/11/2017 JONA HARTMANN MD Ot E78.5 HYPERLIPIDEMIA, UNSPECIFIED 12/11/2017 JONA HARTMANN MD Ot G47.33 OBSTRUCTIVE SLEEP APNEA (ADULT) (PEDIATR 12/11/2017 JONA HARTMANN MD Ot I10 ESSENTIAL (PRIMARY) HYPERTENSION 12/11/2017 JONA HARTMANN MD Ot J44.9 CHRONIC OBSTRUCTIVE PULMONARY DISEASE, U 12/11/2017 JONA HARTMANN MD Ot R59.1 GENERALIZED ENLARGED LYMPH NODES 12/11/2017 JONA HARTMANN MD Ot Z68.41 BODY MASS INDEX (BMI) 40.0-44.9, ADULT 12/11/2017 JONA HARTMANN MD Ot Z79.82 FANCY STITCHER (CURRENT) USE OF ASPIRIN 12/11/2017 JONA HARTMANN MD Ot Z79.84 CUSTODIAL (CURRENT) USE OF ORAL HYPOGLYC 12/11/2017 JONA HARTMANN MD Ot Z79.899 OTHER CUSTODIAL (CURRENT) DRUG THERAPY 12/11/2017 JONA HARTMANN MD Ot Z87.891 PERSONAL HISTORY OF NICOTINE DEPENDENCE 12/11/2017 MYLA CAMP MD Ot 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, EXTRNOD A 12/11/2017 MYLA CAMP MD Ot 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, UNSP, NODES OF ING RE 12/11/2017 MYLA CAMP MD Ot E11.9 TYPE 2 DIABETES MELLITUS WITHOUT COMPLIC 12/11/2017 MYLA CAMP MD, Ot G47.33 OBSTRUCTIVE SLEEP APNEA (ADULT) (PEDIATR 12/11/2017 MYLA CAMP MD Ot I10 ESSENTIAL (PRIMARY) HYPERTENSION 12/11/2017 MYLA CAMP MD, Ot J44.9 CHRONIC OBSTRUCTIVE PULMONARY DISEASE, U 12/11/2017 MYLA CAMP MD Ot Z79.82 FANCY STITCHER (CURRENT) USE OF ASPIRIN 12/11/2017 MYLA CAMP MD Ot Z79.84 CUSTODIAL (CURRENT) USE OF ORAL HYPOGLYC 12/11/2017 MYLA CAMP MD Ot Z79.89 9 OTHER CUSTODIAL (CURRENT) DRUG THERAPY 12/11/2017 MYLA CAMP MD Ot Z87.89 1 PERSONAL HISTORY OF NICOTINE DEPENDENCE 12/17/2017 MYLA CAMP MD Ot 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, EXTRNOD A 12/17/2017 MYLA CAMP MD Ot 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, UNSP, NODES OF ING RE 12/17/2017 MYLA CAMP MD, Ot E11.9 TYPE 2 DIABETES MELLITUS WITHOUT COMPLIC 12/17/2017 MYLA CAMP MD, Ot G47.33 OBSTRUCTIVE SLEEP APNEA (ADULT) (PEDIATR 12/17/2017 MYLA CAMP MD Ot I10 ESSENTIAL (PRIMARY) HYPERTENSION 12/17/2017 MYLA CAMP MD, Ot J44.9 CHRONIC OBSTRUCTIVE PULMONARY DISEASE, U 12/17/2017 MYLA CAMP MD, Ot Z79.82 CUSTODIAL (CURRENT) USE OF ASPIRIN 12/17/2017 MYLA CAMP MD Ot Z79.84 CUSTODIAL (CURRENT) USE OF ORAL HYPOGLYC 12/17/2017 MYLA CAMP MD, Ot Z79.89 9 OTHER CUSTODIAL (CURRENT) DRUG THERAPY 12/17/2017 MYLA CAMP MD, Ot Z87.89 1 PERSONAL HISTORY OF NICOTINE DEPENDENCE 12/19/2017 JONA HARTMANN MD, Ot E11.9 TYPE 2 DIABETES MELLITUS WITHOUT COMPLIC 12/19/2017 JONA HARTMANN MD Ot E66.01 MORBID (SEVERE) OBESITY DUE TO EXCESS CA 12/19/2017 JONA HARTMANN MD Ot E78.5 HYPERLIPIDEMIA, UNSPECIFIED 12/19/2017 JONA HARTMANN MD Ot G47.33 OBSTRUCTIVE SLEEP APNEA (ADULT) (PEDIATR 12/19/2017 JONA HARTMANN MD Ot I10 ESSENTIAL (PRIMARY) HYPERTENSION 12/19/2017 JONA HARTMANN MD, Ot J44.9 CHRONIC OBSTRUCTIVE PULMONARY DISEASE, U 12/19/2017 JONA HARTMANN MD Ot R59.1 GENERALIZED ENLARGED LYMPH NODES 12/19/2017 JONA HARTMANN MD Ot Z68.41 BODY MASS INDEX (BMI) 40.0-44.9, ADULT 12/19/2017 JONA HARTMANN MD Ot Z79.82 FANCY STITCHER (CURRENT) USE OF ASPIRIN 12/19/2017 JONA HARTMANN MD Ot Z79.84 FANCY STITCHER (CURRENT) USE OF ORAL HYPOGLYC 12/19/2017 JONA HARTMANN MD Ot Z79.899 OTHER CUSTODIAL (CURRENT) DRUG THERAPY 12/19/2017 JONA HARTMANN MD Ot Z87.891 PERSONAL HISTORY OF NICOTINE DEPENDENCE 12/23/2017 JONA HARTMANN MD Ot C83.08 SMALL CELL B-CELL LYMPHOMA, LYMPH NODES 12/23/2017 JONA HARTMANN MD Ot K57.30 DVRTCLOS OF LG INT W/O PERFORATION OR AB 12/23/2017 JONA HARTMANN MD Ot K76.0 FATTY (CHANGE OF) LIVER, NOT ELSEWHERE C 12/26/2017 JONA HARTMANN MD, Ot C83.08 SMALL CELL B-CELL LYMPHOMA, LYMPH NODES 12/26/2017 JONA HARTMANN MD, Ot 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, EXTRNOD A 12/26/2017 JONA HARTMANN MD Ot E11.9 TYPE 2 DIABETES MELLITUS WITHOUT COMPLIC 12/26/2017 JONA HARTMANN MD, Ot G47.33 OBSTRUCTIVE SLEEP APNEA (ADULT) (PEDIATR 12/26/2017 JONA HARTMANN MD Ot I10 ESSENTIAL (PRIMARY) HYPERTENSION 12/26/2017 JONA HARTMANN MD, Ot J44.9 CHRONIC OBSTRUCTIVE PULMONARY DISEASE, U 12/26/2017 JONA HARTMANN MD Ot Z79.82 FANCY STITCHER (CURRENT) USE OF ASPIRIN 12/26/2017 JONA HARTMANN MD Ot Z79.84 FANCY STITCHER (CURRENT) USE OF ORAL HYPOGLYC 12/26/2017 JONA HARTMANN MD Ot Z87.891 PERSONAL HISTORY OF NICOTINE DEPENDENCE 01/07/2018 JONA HARTMANN MD, Ot 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, EXTRNOD A 01/07/2018 JONA HARTMANN MD Ot 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, UNSP, NODES OF ING RE 01/07/2018 JONA HARTMANN MD Ot E11.9 TYPE 2 DIABETES MELLITUS WITHOUT COMPLIC 01/07/2018 JONA HARTMANN MD Ot E66.01 MORBID (SEVERE) OBESITY DUE TO EXCESS CA 01/07/2018 JONA HARTMANN MD Ot E78.5 HYPERLIPIDEMIA, UNSPECIFIED 01/07/2018 JONA HARTMANN MD, Ot G47.33 OBSTRUCTIVE SLEEP APNEA (ADULT) (PEDIATR 01/07/2018 JONA HARTMANN MD Ot I10 ESSENTIAL (PRIMARY) HYPERTENSION 01/07/2018 JONA HARTMANN MD, Ot J44.9 CHRONIC OBSTRUCTIVE PULMONARY DISEASE, U 01/07/2018 JONA HARTMANN MD Ot Z68.41 BODY MASS INDEX (BMI) 40.0-44.9, ADULT 01/07/2018 JONA HARTMANN MD Ot Z79.82 CUSTODIAL (CURRENT) USE OF ASPIRIN 01/07/2018 JONA HARTMANN MD Ot Z79.84 FANCY STITCHER (CURRENT) USE OF ORAL HYPOGLYC 01/07/2018 JONA HARTMANN MD, Ot Z79.899 OTHER CUSTODIAL (CURRENT) DRUG THERAPY 01/07/2018 JONA HARTMANN MD Ot Z87.891 PERSONAL HISTORY OF NICOTINE DEPENDENCE 01/15/2018 JONA HARTMANN MD Ot 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, EXTRNOD A 01/15/2018 JONA HARTMANN MD, Ot 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, UNSP, NODES OF ING RE 01/15/2018 JONA HARTMANN MD Ot E11.9 TYPE 2 DIABETES MELLITUS WITHOUT COMPLIC 01/15/2018 JONA HARTMANN MD Ot E66.01 MORBID (SEVERE) OBESITY DUE TO EXCESS CA 01/15/2018 JONA HARTMANN MD Ot E78.5 HYPERLIPIDEMIA, UNSPECIFIED 01/15/2018 JONA HARTMANN MD Ot G47.33 OBSTRUCTIVE SLEEP APNEA (ADULT) (PEDIATR 01/15/2018 JONA HARTMANN MD Ot I10 ESSENTIAL (PRIMARY) HYPERTENSION 01/15/2018 JONA HARTMANN MD Ot J44.9 CHRONIC OBSTRUCTIVE PULMONARY DISEASE, U 01/15/2018 JONA HARTMANN MD Ot Z68.41 BODY MASS INDEX (BMI) 40.0-44.9, ADULT 01/15/2018 JONA HARTMANN MD Ot Z79.82 FANCY STITCHER (CURRENT) USE OF ASPIRIN 01/15/2018 JONA HARTMANN MD Ot Z79.84 CUSTODIAL (CURRENT) USE OF ORAL HYPOGLYC 01/15/2018 JONA HARTMANN MD Ot Z79.899 OTHER FANCY STITCHER (CURRENT) DRUG THERAPY 01/15/2018 JONA HARTMANN MD Ot Z87.891 PERSONAL HISTORY OF NICOTINE DEPENDENCE 01/15/2018 NURISNDER , NEELA S Ot R05 COUGH 01/15/2018 NURISNDHAO ARTHUR, NEELA S Ot R06.2 WHEEZING 01/15/2018 NURISNDER , NEELA S Ot R10.84 GENERALIZED ABDOMINAL PAIN 01/15/2018 BROCK SCHMIDT HEAD BANDER AND LINER OPERATOR Ot R05 COUGH 01/15/2018 BROCK SCHMIDT APRN Ot R06.2 WHEEZING 01/15/2018 FLAKITA DOHERTY DO Ot E11. 9 TYPE 2 DIABETES MELLITUS WITHOUT COMPLIC 01/15/2018 FLAKITA DOHERTY DO, Ot I10 ESSENTIAL (PRIMARY) HYPERTENSION 01/15/2018 FLAKITA DOHERTY DO Ot R06. 00 DYSPNEA, UNSPECIFIED 01/15/2018 FLAKITA DOHERTY DO Ot E11. 9 TYPE 2 DIABETES MELLITUS WITHOUT COMPLIC 01/15/2018 FLAKITA DOHERTY DO Ot I10 ESSENTIAL (PRIMARY) HYPERTENSION 01/15/2018 FLAKITA DOHERTY DO Ot R06. 00 DYSPNEA, UNSPECIFIED 01/15/2018 CHENCHO, SAMMY R HEAD BANDER AND LINER OPERATOR Ot H93.8X1 OTHER SPECIFIED DISORDERS OF RIGHT EAR 01/15/2018 CHENCHOSAMMY IVEY HEAD BANDER AND LINER OPERATOR Ot M50.322 OTHER CERVICAL DISC DEGENERATION AT C5-C 01/15/2018 CHENCHOSAMMY IVEY HEAD BANDER AND LINER OPERATOR Ot R22.1 LOCALIZED SWELLING, MASS AND LUMP, NECK 01/15/2018 NEELA HYMAN DO Ot E11.9 TYPE 2 DIABETES MELLITUS WITHOUT COMPLIC 01/15/2018 NEELA HYMAN DO Ot I65.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 01/15/2018 JONA HARTMANN MD Ot I51.7 CARDIOMEGALY 01/15/2018 JONA HARTMANN MD Ot K76.0 FATTY (CHANGE OF) LIVER, NOT ELSEWHERE C 01/15/2018 JONA HARTMANN MD Ot R59.1 GENERALIZED ENLARGED LYMPH NODES 01/15/2018 JONA HARTMANN MD Ot C83.08 SMALL CELL B-CELL LYMPHOMA, LYMPH NODES 01/15/2018 JONA HARTMANN MD, Ot C83.08 SMALL CELL B-CELL LYMPHOMA, LYMPH NODES 01/15/2018 JONA HARTMANN MD Ot K57.30 DVRTCLOS OF LG INT W/O PERFORATION OR AB 01/15/2018 JONA HARTMANN MD Ot K76.0 FATTY (CHANGE OF) LIVER, NOT ELSEWHERE C 01/15/2018 JONA HARTMANN MD Ot 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, EXTRNOD A 01/15/2018 JONA HARTMANN MD Ot 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, UNSP, NODES OF ING RE 01/15/2018 JONA HARTMANN MD Ot E11.9 TYPE 2 DIABETES MELLITUS WITHOUT COMPLIC 01/15/2018 JONA HARTMANN MD Ot E66.01 MORBID (SEVERE) OBESITY DUE TO EXCESS CA 01/15/2018 JONA HARTMANN MD Ot E78.5 HYPERLIPIDEMIA, UNSPECIFIED 01/15/2018 JONA HARTMANN MD Ot G47.33 OBSTRUCTIVE SLEEP APNEA (ADULT) (PEDIATR 01/15/2018 JONA HARTMANN MD Ot I10 ESSENTIAL (PRIMARY) HYPERTENSION 01/15/2018 JONA HARTMANN MD Ot J44.9 CHRONIC OBSTRUCTIVE PULMONARY DISEASE, U 01/15/2018 JONA HARTMANN MD Ot Z68.41 BODY MASS INDEX (BMI) 40.0-44.9, ADULT 01/15/2018 JONA HARTMANN MD Ot Z79.82 CUSTODIAL (CURRENT) USE OF ASPIRIN 01/15/2018 JONA HARTMANN MD Ot Z79.84 FANCY STITCHER (CURRENT) USE OF ORAL HYPOGLYC 01/15/2018 JONA HARTMANN MD, Ot Z79.899 OTHER FANCY STITCHER (CURRENT) DRUG THERAPY 01/15/2018 JONA HARTMANN MD Ot Z87.891 PERSONAL HISTORY OF NICOTINE DEPENDENCE 01/15/2018 NEELA HYMAN DO Ot E11.9 TYPE 2 DIABETES MELLITUS WITHOUT COMPLIC 01/15/2018 NEELA HYMAN DO Ot I65.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 02/06/2018 JONA HARTMANN MD Ot 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, EXTRNOD A 02/06/2018 JONA HARTMANN MD, Ot 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, UNSP, NODES OF ING RE 02/06/2018 JONA HARTMANN MD Ot E11.9 TYPE 2 DIABETES MELLITUS WITHOUT COMPLIC 02/06/2018 JONA HARTMANN MD Ot E66.01 MORBID (SEVERE) OBESITY DUE TO EXCESS CA 02/06/2018 JONA HARTMANN MD Ot E78.5 HYPERLIPIDEMIA, UNSPECIFIED 02/06/2018 JONA HARTMANN MD Ot G47.33 OBSTRUCTIVE SLEEP APNEA (ADULT) (PEDIATR 02/06/2018 JONA HARTMANN MD Ot I10 ESSENTIAL (PRIMARY) HYPERTENSION 02/06/2018 JONA HARTMANN MD, Ot J44.9 CHRONIC OBSTRUCTIVE PULMONARY DISEASE, U 02/06/2018 JONA HARTMANN MD Ot Z68.41 BODY MASS INDEX (BMI) 40.0-44.9, ADULT 02/06/2018 JONA HARTMANN MD Ot Z79.82 FANCY STITCHER (CURRENT) USE OF ASPIRIN 02/06/2018 JONA HARTMANN MD Ot Z79.84 FANCY STITCHER (CURRENT) USE OF ORAL HYPOGLYC 02/06/2018 JONA HARTMANN MD Ot Z79.899 OTHER FANCY STITCHER (CURRENT) DRUG THERAPY 02/06/2018 JONA HARTMANN MD Ot Z87.891 PERSONAL HISTORY OF NICOTINE DEPENDENCE 02/23/2018 JONA HARTMANN MD, Ot 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, EXTRNOD A 02/23/2018 JONA HARTMANN MD, Ot 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, UNSP, NODES OF ING RE 02/23/2018 JONA HARTMANN MD Ot E11.9 TYPE 2 DIABETES MELLITUS WITHOUT COMPLIC 02/23/2018 JONA HARTMANN MD Ot E66.01 MORBID (SEVERE) OBESITY DUE TO EXCESS CA 02/23/2018 JONA HARTMANN MD Ot E78.5 HYPERLIPIDEMIA, UNSPECIFIED 02/23/2018 JONA HARTMANN MD, Ot G47.33 OBSTRUCTIVE SLEEP APNEA (ADULT) (PEDIATR 02/23/2018 JONA HARTMANN MD, Ot I10 ESSENTIAL (PRIMARY) HYPERTENSION 02/23/2018 JONA HARTMANN MD, Ot J44.9 CHRONIC OBSTRUCTIVE PULMONARY DISEASE, U 02/23/2018 JONA HARTMANN MD, Ot Z51.0 ENCOUNTER FOR ANTINEOPLASTIC RADIATION T 02/23/2018 JONA HARTMANN MD Ot Z68.41 BODY MASS INDEX (BMI) 40.0-44.9, ADULT 02/23/2018 JONA HARTMANN MD Ot Z79.82 FANCY STITCHER (CURRENT) USE OF ASPIRIN 02/23/2018 JONA HARTMANN MD Ot Z79.84 CUSTODIAL (CURRENT) USE OF ORAL HYPOGLYC 02/23/2018 JONA HARTMANN MD Ot Z79.899 OTHER FANCY STITCHER (CURRENT) DRUG THERAPY 02/23/2018 JONA HARTMANN MD, Ot Z87.891 PERSONAL HISTORY OF NICOTINE DEPENDENCE 02/23/2018 NEELA HYMAN DO S Ot R05 COUGH 02/23/2018 HERMES HYMAN DOLINE S Ot R06.2 WHEEZING 02/23/2018 NEELA HYMAN DO S Ot R10.84 GENERALIZED ABDOMINAL PAIN 02/23/2018 BROCK SCHMIDT HEAD BANDER AND LINER OPERATOR Ot R05 COUGH 02/23/2018 BROCK SCHMIDT APRN Ot R06.2 WHEEZING 02/23/2018 FLAKITA DOHERTY DO, Ot E11. 9 TYPE 2 DIABETES MELLITUS WITHOUT COMPLIC 02/23/2018 FLAKITA DOHERTY DO, Ot I10 ESSENTIAL (PRIMARY) HYPERTENSION 02/23/2018 FLAKITA DOHERTY DO Ot R06. 00 DYSPNEA, UNSPECIFIED 02/23/2018 FLAKITA DOHERTY DO Ot E11. 9 TYPE 2 DIABETES MELLITUS WITHOUT COMPLIC 02/23/2018 FLAKITA DOHERTY DO Ot I10 ESSENTIAL (PRIMARY) HYPERTENSION 02/23/2018 FLAKITA DOHERTY DO Ot R06. 00 DYSPNEA, UNSPECIFIED 02/23/2018 ASCENCION PAIZYSJANINE Duarte HEAD BANDER AND LINER OPERATOR Ot H93.8X1 OTHER SPECIFIED DISORDERS OF RIGHT EAR 02/23/2018 CHENCHOSAMMY IVEY R HEAD BANDER AND LINER OPERATOR Ot M50.322 OTHER CERVICAL DISC DEGENERATION AT C5-C 02/23/2018 CHENCHOSAMYM IVEY HEAD BANDER AND LINER OPERATOR Ot R22.1 LOCALIZED SWELLING, MASS AND LUMP, NECK 02/23/2018 NEELA HYMAN DO Ot E11.9 TYPE 2 DIABETES MELLITUS WITHOUT COMPLIC 02/23/2018 NEELA HYMAN DO Ot I65.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 02/23/2018 JONA HARTMANN MD Ot I51.7 CARDIOMEGALY 02/23/2018 JONA HARTMANN MD Ot K76.0 FATTY (CHANGE OF) LIVER, NOT ELSEWHERE C 02/23/2018 JONA HARTMANN MD Ot R59.1 GENERALIZED ENLARGED LYMPH NODES 02/23/2018 JONA HARTMANN MD, Ot C83.08 SMALL CELL B-CELL LYMPHOMA, LYMPH NODES 02/23/2018 JONA HARTMANN MD, Ot C83.08 SMALL CELL B-CELL LYMPHOMA, LYMPH NODES 02/23/2018 JONA HARTMANN MD, Ot K57.30 DVRTCLOS OF LG INT W/O PERFORATION OR AB 02/23/2018 JONA HARTMANN MD, Ot K76.0 FATTY (CHANGE OF) LIVER, NOT ELSEWHERE C 02/23/2018 JONA HATRMANN MD Ot 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, EXTRNOD A 02/23/2018 JONA HARTMANN MD Ot 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, UNSP, NODES OF ING RE 02/23/2018 JONA HARTMANN MD, Ot E11.9 TYPE 2 DIABETES MELLITUS WITHOUT COMPLIC 02/23/2018 JONA HARTMANN MD Ot E66.01 MORBID (SEVERE) OBESITY DUE TO EXCESS CA 02/23/2018 JONA HARTMANN MD Ot E78.5 HYPERLIPIDEMIA, UNSPECIFIED 02/23/2018 JONA HARTMANN MD Ot G47.33 OBSTRUCTIVE SLEEP APNEA (ADULT) (PEDIATR 02/23/2018 JONA HARTMANN MD Ot I10 ESSENTIAL (PRIMARY) HYPERTENSION 02/23/2018 JONA HARTMANN MD Ot J44.9 CHRONIC OBSTRUCTIVE PULMONARY DISEASE, U 02/23/2018 JONA HARTMANN MD, Ot Z68.41 BODY MASS INDEX (BMI) 40.0-44.9, ADULT 02/23/2018 JONA HARTMANN MD, Ot Z79.82 CUSTODIAL (CURRENT) USE OF ASPIRIN 02/23/2018 JONA HARTMANN MD, Ot Z79.84 FANCY STITCHER (CURRENT) USE OF ORAL HYPOGLYC 02/23/2018 JONA HARTMANN MD, Ot Z79.899 OTHER FANCY STITCHER (CURRENT) DRUG THERAPY 02/23/2018 JONA HARTMANN MD, Ot Z87.891 PERSONAL HISTORY OF NICOTINE DEPENDENCE 02/25/2018 NEELA HYMAN DO S Ot R05 COUGH 02/25/2018 HERMES HYMAN DOLINE S Ot R06.2 WHEEZING 02/25/2018 NEELA HYMAN DO S Ot R10.84 GENERALIZED ABDOMINAL PAIN 02/25/2018 BROCK SCHMIDT APRN Ot R05 COUGH 02/25/2018 BROCK SCHMIDT APRN Ot R06.2 WHEEZING 02/25/2018 FLAKITA DOHERTY DO Ot E11. 9 TYPE 2 DIABETES MELLITUS WITHOUT COMPLIC 02/25/2018 FLAKITA DOHERTY DO Ot I10 ESSENTIAL (PRIMARY) HYPERTENSION 02/25/2018 FLAKITA DOHERTY DO Ot R06. 00 DYSPNEA, UNSPECIFIED 02/25/2018 FLAKITA DOHERTY DO Ot E11. 9 TYPE 2 DIABETES MELLITUS WITHOUT COMPLIC 02/25/2018 FLAKITA DOHERTY DO Ot I10 ESSENTIAL (PRIMARY) HYPERTENSION 02/25/2018 FLAKITA DOHERTY DO Ot R06. 00 DYSPNEA, UNSPECIFIED 02/25/2018 SAMMY PAIZ APRN Ot H93.8X1 OTHER SPECIFIED DISORDERS OF RIGHT EAR 02/25/2018 SAMMY PAIZ APRN Ot M50.322 OTHER CERVICAL DISC DEGENERATION AT C5-C 02/25/2018 SAMMY PAIZ APRN Ot R22.1 LOCALIZED SWELLING, MASS AND LUMP, NECK 02/25/2018 NEELA HYMAN DO S Ot E11.9 TYPE 2 DIABETES MELLITUS WITHOUT COMPLIC 02/25/2018 CRISTIANA ARTHUR NEELA S Ot I65.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 02/25/2018 JONA HARTMANN MD Ot I51.7 CARDIOMEGALY 02/25/2018 JONA HARTMANN MD, Ot K76.0 FATTY (CHANGE OF) LIVER, NOT ELSEWHERE C 02/25/2018 JONA HARTMANN MD Ot R59.1 GENERALIZED ENLARGED LYMPH NODES 02/25/2018 JONA HARTMANN MD, Ot C83.08 SMALL CELL B-CELL LYMPHOMA, LYMPH NODES 02/25/2018 JONA HARTMANN MD, Ot C83.08 SMALL CELL B-CELL LYMPHOMA, LYMPH NODES 02/25/2018 JONA HARTMANN MD Ot K57.30 DVRTCLOS OF LG INT W/O PERFORATION OR AB 02/25/2018 JONA HARTMANN MD, Ot K76.0 FATTY (CHANGE OF) LIVER, NOT ELSEWHERE C 02/25/2018 JONA HARTMANN MD, Ot 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, EXTRNOD A 02/25/2018 JONA HARTMANN MD, Ot 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, UNSP, NODES OF ING RE 02/25/2018 JONA HARTMANN MD Ot E11.9 TYPE 2 DIABETES MELLITUS WITHOUT COMPLIC 02/25/2018 JONA HARTMANN MD Ot E66.01 MORBID (SEVERE) OBESITY DUE TO EXCESS CA 02/25/2018 JONA HARTMANN MD Ot E78.5 HYPERLIPIDEMIA, UNSPECIFIED 02/25/2018 JONA HARTMANN MD, Ot G47.33 OBSTRUCTIVE SLEEP APNEA (ADULT) (PEDIATR 02/25/2018 JONA HARTMANN MD Ot I10 ESSENTIAL (PRIMARY) HYPERTENSION 02/25/2018 JONA HARTMANN MD, Ot J44.9 CHRONIC OBSTRUCTIVE PULMONARY DISEASE, U 02/25/2018 JONA HARTMANN MD Ot Z68.41 BODY MASS INDEX (BMI) 40.0-44.9, ADULT 02/25/2018 JONA HARTMANN MD Ot Z79.82 FANCY STITCHER (CURRENT) USE OF ASPIRIN 02/25/2018 JONA HARTMANN MD Ot Z79.84 FANCY STITCHER (CURRENT) USE OF ORAL HYPOGLYC 02/25/2018 JONA HARTMANN MD Ot Z79.899 OTHER CUSTODIAL (CURRENT) DRUG THERAPY 02/25/2018 JONA HARTMANN MD Ot Z87.891 PERSONAL HISTORY OF NICOTINE DEPENDENCE 02/25/2018 MARY KATE MD, TENORIO Ot 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, EXTRNOD A 02/25/2018 JONA HARTMANN MD Ot 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, UNSP, NODES OF ING RE 02/25/2018 JONA HARTMANN MD Ot E11.9 TYPE 2 DIABETES MELLITUS WITHOUT COMPLIC 02/25/2018 JONA HARTMANN MD Ot E66.01 MORBID (SEVERE) OBESITY DUE TO EXCESS CA 02/25/2018 JONA HARTMANN MD Ot E78.5 HYPERLIPIDEMIA, UNSPECIFIED 02/25/2018 JONA HARTMANN MD Ot G47.33 OBSTRUCTIVE SLEEP APNEA (ADULT) (PEDIATR 02/25/2018 JONA HARTMANN MD Ot I10 ESSENTIAL (PRIMARY) HYPERTENSION 02/25/2018 JONA HARTMANN MD Ot J44.9 CHRONIC OBSTRUCTIVE PULMONARY DISEASE, U 02/25/2018 JONA HARTMANN MD Ot Z68.41 BODY MASS INDEX (BMI) 40.0-44.9, ADULT 02/25/2018 JONA HARTMANN MD Ot Z79.82 CUSTODIAL (CURRENT) USE OF ASPIRIN 02/25/2018 JONA HARTMANN MD Ot Z79.84 FANCY STITCHER (CURRENT) USE OF ORAL HYPOGLYC 02/25/2018 JONA HARTMANN MD Ot Z79.899 OTHER FANCY STITCHER (CURRENT) DRUG THERAPY 02/25/2018 JONA HARTMANN MD Ot Z87.891 PERSONAL HISTORY OF NICOTINE DEPENDENCE 05/24/2018 JONA HARTMANN MD Ot 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, EXTRNOD A 05/24/2018 JONA HARTMANN MD Ot 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, UNSP, NODES OF ING RE 05/24/2018 JONA HARTMANN MD Ot E11.9 TYPE 2 DIABETES MELLITUS WITHOUT COMPLIC 05/24/2018 JONA HARTMANN MD Ot E66.01 MORBID (SEVERE) OBESITY DUE TO EXCESS CA 05/24/2018 JONA HARTMANN MD Ot E78.5 HYPERLIPIDEMIA, UNSPECIFIED 05/24/2018 JONA HARTMANN MD Ot G47.33 OBSTRUCTIVE SLEEP APNEA (ADULT) (PEDIATR 05/24/2018 JONA HARTMANN MD Ot I10 ESSENTIAL (PRIMARY) HYPERTENSION 05/24/2018 JONA HARTMANN MD Ot J44.9 CHRONIC OBSTRUCTIVE PULMONARY DISEASE, U 05/24/2018 JONA HARTMANN MD Ot Z51.0 ENCOUNTER FOR ANTINEOPLASTIC RADIATION T 05/24/2018 JONA HARTMANN MD Ot Z68.41 BODY MASS INDEX (BMI) 40.0-44.9, ADULT 05/24/2018 JONA HARTMANN MD Ot Z79.82 FANCY STITCHER (CURRENT) USE OF ASPIRIN 05/24/2018 JONA HARTMANN MD Ot Z79.84 FANCY STITCHER (CURRENT) USE OF ORAL HYPOGLYC 05/24/2018 JONA HARTMANN MD Ot Z79.899 OTHER FANCY STITCHER (CURRENT) DRUG THERAPY 05/24/2018 JONA HARTMANN MD Ot Z87.891 PERSONAL HISTORY OF NICOTINE DEPENDENCE 05/25/2018 JONA HARTMANN MD Ot 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, EXTRNOD A 05/25/2018 JONA HARTMANN MD Ot 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, UNSP, NODES OF ING RE 05/25/2018 JONA HARTMANN MD Ot E11.9 TYPE 2 DIABETES MELLITUS WITHOUT COMPLIC 05/25/2018 JONA HARTMANN MD Ot E66.01 MORBID (SEVERE) OBESITY DUE TO EXCESS CA 05/25/2018 JONA HARTMANN MD Ot E78.5 HYPERLIPIDEMIA, UNSPECIFIED 05/25/2018 JONA HARTMANN MD Ot G47.33 OBSTRUCTIVE SLEEP APNEA (ADULT) (PEDIATR 05/25/2018 JONA HARTMANN MD Ot I10 ESSENTIAL (PRIMARY) HYPERTENSION 05/25/2018 JONA HARTMANN MD Ot J44.9 CHRONIC OBSTRUCTIVE PULMONARY DISEASE, U 05/25/2018 JONA HARTMANN MD Ot Z51.0 ENCOUNTER FOR ANTINEOPLASTIC RADIATION T 05/25/2018 JONA HARTMANN MD Ot Z68.41 BODY MASS INDEX (BMI) 40.0-44.9, ADULT 05/25/2018 JONA HARTMANN MD Ot Z79.82 FANCY STITCHER (CURRENT) USE OF ASPIRIN 05/25/2018 JONA HARTMANN MD Ot Z79.84 CUSTODIAL (CURRENT) USE OF ORAL HYPOGLYC 05/25/2018 JONA HARTMANN MD Ot Z79.899 OTHER FANCY STITCHER (CURRENT) DRUG THERAPY 05/25/2018 JONA HARTMANN MD Ot Z87.891 PERSONAL HISTORY OF NICOTINE DEPENDENCE 07/16/2018 Ot C85.80 OTH TYPES OF NON- HODGKIN LYMPHOMA, UNSPE 07/16/2018 Ot I51.7 CARD IOMEGALY 07/16/2018 Ot J18.1 LOBA R PNEUMONIA, UNSPECIFIED ORGANISM 07/16/2018 Ot M19.011 NM IMARY OSTEOARTHRITIS, RIGHT SHOULDER 08/06/2018 Ot C85.80 OTH TYPES OF NON- HODGKIN LYMPHOMA, UNSPE 08/06/2018 Ot I51.7 CARD IOMEGALY 08/06/2018 Ot J18.1 LOBA R PNEUMONIA, UNSPECIFIED ORGANISM 08/06/2018 Ot M19.011 NM IMARY OSTEOARTHRITIS, RIGHT SHOULDER 08/10/2018 JONA HARTMANN MD Ot I51.7 CARDIOMEGALY 08/10/2018 JONA HARTMANN MD Ot K76.0 FATTY (CHANGE OF) LIVER, NOT ELSEWHERE C 08/10/2018 JONA HARTMANN MD Ot R59.1 GENERALIZED ENLARGED LYMPH NODES 08/12/2018 ORENDER DO, NEELA S Ot I51.7 CARDIOMEGALY 08/12/2018 ORENDER DO, NEELA S Ot R09.89 OTH SYMPTOMS AND SIGNS INVOLVING THE CIR 08/12/2018 ORENDER DO, NEELA S Ot R91.8 OTHER NONSPECIFIC ABNORMAL FINDING OF [place]ORIN 08/24/2018 NURISNDER DO, NEELA S Ot R06.00 DYSPNEA, UNSPECIFIED 09/02/2018 BESSY ROJAS APRN Ot J18.9 PNEUMONIA, UNSPECIFIED ORGANISM 09/07/2018 ORENDER DO, NEELA S Ot R06.02 SHORTNESS OF BREATH 09/07/2018 ORENDER DO, NEELA S Ot R91.8 OTHER NONSPECIFIC ABNORMAL FINDING OF [place] 09/10/2018 JONA HARTMANN MD Ot 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, EXTRNOD A 09/10/2018 JONA HARTMANN MD Ot 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, UNSP, NODES OF ING RE 09/10/2018 JONA HARTMANN MD Ot E11.9 TYPE 2 DIABETES MELLITUS WITHOUT COMPLIC 09/10/2018 JONA HARTMANN MD Ot E66.01 MORBID (SEVERE) OBESITY DUE TO EXCESS CA 09/10/2018 JONA HARTMANN MD Ot E78.5 HYPERLIPIDEMIA, UNSPECIFIED 09/10/2018 JONA HARTMANN MD Ot G47.33 OBSTRUCTIVE SLEEP APNEA (ADULT) (PEDIATR 09/10/2018 JONA HARTMANN MD Ot I10 ESSENTIAL (PRIMARY) HYPERTENSION 09/10/2018 JONA HARTMANN MD Ot J44.9 CHRONIC OBSTRUCTIVE PULMONARY DISEASE, U 09/10/2018 JONA HARTMANN MD Ot Z68.41 BODY MASS INDEX (BMI) 40.0-44.9, ADULT 09/10/2018 JONA HARTMANN MD Ot Z79.82 CUSTODIAL (CURRENT) USE OF ASPIRIN 09/10/2018 JONA HARTMANN MD Ot Z79.84 CUSTODIAL (CURRENT) USE OF ORAL HYPOGLYC 09/10/2018 JONA HARTMANN MD Ot Z79.899 OTHER CUSTODIAL (CURRENT) DRUG THERAPY 09/10/2018 JONA HARTMANN MD Ot Z87.891 PERSONAL HISTORY OF NICOTINE DEPENDENCE 09/24/2018 JONA HARTMANN MD Ot 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, EXTRNOD A 09/24/2018 JONA HARTMANN MD Ot 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, UNSP, NODES OF ING RE 09/24/2018 JONA HARTMANN MD Ot E11.9 TYPE 2 DIABETES MELLITUS WITHOUT COMPLIC 09/24/2018 JONA HARTMANN MD Ot E66.01 MORBID (SEVERE) OBESITY DUE TO EXCESS CA 09/24/2018 JONA HARTMANN MD Ot E78.5 HYPERLIPIDEMIA, UNSPECIFIED 09/24/2018 JONA HARTMANN MD Ot G47.33 OBSTRUCTIVE SLEEP APNEA (ADULT) (PEDIATR 09/24/2018 JONA HARTMANN MD Ot I10 ESSENTIAL (PRIMARY) HYPERTENSION 09/24/2018 JONA HARTMANN MD Ot J44.9 CHRONIC OBSTRUCTIVE PULMONARY DISEASE, U 09/24/2018 JONA HARTMANN MD Ot Z68.41 BODY MASS INDEX (BMI) 40.0-44.9, ADULT 09/24/2018 JONA HARTMANN MD Ot Z79.82 FANCY STITCHER (CURRENT) USE OF ASPIRIN 09/24/2018 JONA HARTMANN MD Ot Z79.84 FANCY STITCHER (CURRENT) USE OF ORAL HYPOGLYC 09/24/2018 JONA HARTMANN MD Ot Z79.899 OTHER CUSTODIAL (CURRENT) DRUG THERAPY 09/24/2018 JONA HARTMANN MD Ot Z87.891 PERSONAL HISTORY OF NICOTINE DEPENDENCE 10/20/2018 JONA HARTMANN MD Ot 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, EXTRNOD A 10/20/2018 JONA HARTMANN MD Ot 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, UNSP, NODES OF ING RE 10/20/2018 JONA HARTMANN MD Ot E11.9 TYPE 2 DIABETES MELLITUS WITHOUT COMPLIC 10/20/2018 JONA HARTMANN MD Ot E66.01 MORBID (SEVERE) OBESITY DUE TO EXCESS CA 10/20/2018 JONA HARTMANN MD Ot E78.5 HYPERLIPIDEMIA, UNSPECIFIED 10/20/2018 JONA HARTMANN MD Ot G47.33 OBSTRUCTIVE SLEEP APNEA (ADULT) (PEDIATR 10/20/2018 JONA HARTMANN MD Ot I10 ESSENTIAL (PRIMARY) HYPERTENSION 10/20/2018 JONA HARTMANN MD Ot J44.9 CHRONIC OBSTRUCTIVE PULMONARY DISEASE, U 10/20/2018 JONA HARTMANN MD Ot Z68.41 BODY MASS INDEX (BMI) 40.0-44.9, ADULT 10/20/2018 JONA HARTMANN MD Ot Z79.82 FANCY STITCHER (CURRENT) USE OF ASPIRIN 10/20/2018 JONA HARTMANN MD Ot Z79.84 FANCY STITCHER (CURRENT) USE OF ORAL HYPOGLYC 10/20/2018 JONA HARTMANN MD Ot Z79.899 OTHER CUSTODIAL (CURRENT) DRUG THERAPY 10/20/2018 JONA HARTMANN MD Ot Z87.891 PERSONAL HISTORY OF NICOTINE DEPENDENCE 10/22/2018 JONA HARTMANN MD Ot 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, EXTRNOD A 10/22/2018 JONA HARTMANN MD Ot 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, UNSP, NODES OF ING RE 10/22/2018 JONA HARTMANN MD Ot E11.9 TYPE 2 DIABETES MELLITUS WITHOUT COMPLIC 10/22/2018 JONA HARTMANN MD Ot E66.01 MORBID (SEVERE) OBESITY DUE TO EXCESS CA 10/22/2018 JONA HARTMANN MD Ot E78.5 HYPERLIPIDEMIA, UNSPECIFIED 10/22/2018 JONA HARTMANN MD Ot G47.33 OBSTRUCTIVE SLEEP APNEA (ADULT) (PEDIATR 10/22/2018 JONA HARTMANN MD Ot I10 ESSENTIAL (PRIMARY) HYPERTENSION 10/22/2018 JONA HARTMANN MD Ot J44.9 CHRONIC OBSTRUCTIVE PULMONARY DISEASE, U 10/22/2018 JONA HARTMANN MD Ot Z68.41 BODY MASS INDEX (BMI) 40.0-44.9, ADULT 10/22/2018 JONA HARTMANN MD Ot Z79.82 FANCY STITCHER (CURRENT) USE OF ASPIRIN 10/22/2018 JONA HARTMANN MD Ot Z79.84 FANCY STITCHER (CURRENT) USE OF ORAL HYPOGLYC 10/22/2018 JONA HARTMANN MD Ot Z79.899 OTHER FANCY STITCHER (CURRENT) DRUG THERAPY 10/22/2018 JONA HARTMANN MD, Ot Z87.891 PERSONAL HISTORY OF NICOTINE DEPENDENCE 11/21/2018 ORENDER DO, NEELA S Ot J18.9 PNEUMONIA, UNSPECIFIED ORGANISM 11/21/2018 ORENDER DO, NEELA S Ot R59.0 LOCALIZED ENLARGED LYMPH NODES 12/18/2018 ORENDER DO, NEELA S Ot J18.1 LOBAR PNEUMONIA, UNSPECIFIED ORGANISM 12/18/2018 ORENDER DO, NEELA S Ot R91.8 OTHER NONSPECIFIC ABNORMAL FINDING OF FLORIN 12/22/2018 ORENDER DO, NEELA S Ot J18.1 LOBAR PNEUMONIA, UNSPECIFIED ORGANISM 12/22/2018 ORENDER DO, NEELA S Ot R91.8 OTHER NONSPECIFIC ABNORMAL FINDING OF [place]ORIN 12/26/2018 ORENDER DO, NEELA S Ot J18.1 LOBAR PNEUMONIA, UNSPECIFIED ORGANISM 12/26/2018 ORENDER DO, NEELA S Ot R91.8 OTHER NONSPECIFIC ABNORMAL FINDING OF [place]ORIN 01/01/2019 ORENDER DO, NEELA S Ot J18.1 LOBAR PNEUMONIA, UNSPECIFIED ORGANISM 01/01/2019 ORENDER DO, NEELA S Ot R91.8 OTHER NONSPECIFIC ABNORMAL FINDING OF [place]ORIN 01/03/2019 ORENDER DO, NEELA S Ot J18.1 LOBAR PNEUMONIA, UNSPECIFIED ORGANISM 01/03/2019 ORENDER DO, NEEAL S Ot R91.8 OTHER NONSPECIFIC ABNORMAL FINDING OF FLORIN 01/19/2019 JONA HARTMANN MD, Ot 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, EXTRNOD A 01/19/2019 JONA HARTMANN MD, Ot 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891 PERSONAL HISTORY OF NICOTINE DEPENDENCE 01/26/2019 JONA HARTMANN MD Ot 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, EXTRNOD A 01/26/2019 JONA HARTMANN MD Ot 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, UNSP, NODES OF ING RE 01/26/2019 JONA HARTMANN MD Ot E78.5 HYPERLIPIDEMIA, UNSPECIFIED 01/26/2019 JONA HARTMANN MD Ot G47.33 OBSTRUCTIVE SLEEP APNEA (ADULT) (PEDIATR 01/26/2019 JONA HARTMANN MD Ot I10 ESSENTIAL (PRIMARY) HYPERTENSION 01/26/2019 JONA HARTMANN MD Ot J44.9 CHRONIC OBSTRUCTIVE PULMONARY DISEASE, U 01/26/2019 JONA HARTMANN MD Ot Z79.82 CUSTODIAL (CURRENT) USE OF ASPIRIN 01/26/2019 JONA HARTMANN MD Ot Z79.84 FANCY STITCHER (CURRENT) USE OF ORAL HYPOGLYC 01/26/2019 JONA HARTMANN MD Ot Z79.899 OTHER FANCY STITCHER (CURRENT) DRUG THERAPY 01/26/2019 JONA HARTMANN MD Ot Z87.891 PERSONAL HISTORY OF NICOTINE DEPENDENCE 01/27/2019 JONA HARTMANN MD Ot 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, EXTRNOD A 01/27/2019 JONA HARTMANN MD Ot 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, UNSP, NODES OF ING RE 01/27/2019 JONA HARTMANN MD Ot E78.5 HYPERLIPIDEMIA, UNSPECIFIED 01/27/2019 JONA HARTMANN MD Ot G47.33 OBSTRUCTIVE SLEEP APNEA (ADULT) (PEDIATR 01/27/2019 JONA HARTMANN MD Ot I10 ESSENTIAL (PRIMARY) HYPERTENSION 01/27/2019 JONA HARTMANN MD Ot J44.9 CHRONIC OBSTRUCTIVE PULMONARY DISEASE, U 01/27/2019 JONA HARTMANN MD Ot Z79.82 FANCY STITCHER (CURRENT) USE OF ASPIRIN 01/27/2019 JONA HARTMANN MD Ot Z79.84 FANCY STITCHER (CURRENT) USE OF ORAL HYPOGLYC 01/27/2019 JONA HARTMANN MD Ot Z79.899 OTHER FANCY STITCHER (CURRENT) DRUG THERAPY 01/27/2019 JONA HARTMANN MD Ot Z87.891 PERSONAL HISTORY OF NICOTINE DEPENDENCE 01/27/2019 JONA HARTMANN MD Ot 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, EXTRNOD A 01/27/2019 JONA HARTMANN MD Ot 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, UNSP, NODES OF ING RE 01/27/2019 JONA HARTMANN MD Ot E78.5 HYPERLIPIDEMIA, UNSPECIFIED 01/27/2019 JONA HARTMANN MD Ot G47.33 OBSTRUCTIVE SLEEP APNEA (ADULT) (PEDIATR 01/27/2019 JONA HARTMANN MD, Ot I10 ESSENTIAL (PRIMARY) HYPERTENSION 01/27/2019 JONA HARTMANN MD Ot J44.9 CHRONIC OBSTRUCTIVE PULMONARY DISEASE, U 01/27/2019 JONA HARTMANN MD, Ot Z79.82 FANCY STITCHER (CURRENT) USE OF ASPIRIN 01/27/2019 JONA HARTMANN MD, Ot Z79.84 CUSTODIAL (CURRENT) USE OF ORAL HYPOGLYC 01/27/2019 JONA HARTMANN MD, Ot Z79.899 OTHER CUSTODIAL (CURRENT) DRUG THERAPY 01/27/2019 JONA HARTMANN MD, Ot Z87.891 PERSONAL HISTORY OF NICOTINE DEPENDENCE 02/09/2019 HERMES HYMAN DOLINE S Ot J18.9 PNEUMONIA, UNSPECIFIED ORGANISM 02/09/2019 SETH HYMAN DOQUELINE S Ot R59.0 LOCALIZED ENLARGED LYMPH NODES 02/24/2019 HERMES HYMAN DOLINE S Ot R05 COUGH 02/24/2019 HERMES HYMAN DOLINE S Ot R06.2 WHEEZING 02/24/2019 SETH HYMAN DOQUELINE S Ot R10.84 GENERALIZED ABDOMINAL PAIN 02/24/2019 BROCK SCHMIDT HEAD BANDER AND LINER OPERATOR Ot R05 COUGH 02/24/2019 BROCK SCHMIDT HEAD BANDER AND LINER OPERATOR Ot R06.2 WHEEZING 02/24/2019 FLAKITA DOHERTY DO Ot E11. 9 TYPE 2 DIABETES MELLITUS WITHOUT COMPLIC 02/24/2019 FLAKITA DOHERTY DO, Ot I10 ESSENTIAL (PRIMARY) HYPERTENSION 02/24/2019 FLAKITA DOHERTY DO Ot R06. 00 DYSPNEA, UNSPECIFIED 02/24/2019 FLAKITA DOHERTY DO Ot E11. 9 TYPE 2 DIABETES MELLITUS WITHOUT COMPLIC 02/24/2019 FLAKITA DOHERTY DO Ot I10 ESSENTIAL (PRIMARY) HYPERTENSION 02/24/2019 FLAKITA DOHERTY DO Ot R06. 00 DYSPNEA, UNSPECIFIED 02/24/2019 SAMMY PAIZ HEAD BANDER AND LINER OPERATOR Ot H93.8X1 OTHER SPECIFIED DISORDERS OF RIGHT EAR 02/24/2019 SAMMY PAIZ HEAD BANDER AND LINER OPERATOR Ot M50.322 OTHER CERVICAL DISC DEGENERATION AT C5-C 02/24/2019 SAMMY PAIZ HEAD BANDER AND LINER OPERATOR Ot R22.1 LOCALIZED SWELLING, MASS AND LUMP, NECK 02/24/2019 NURISNDER SETH ARTHURNEELA S Ot E11.9 TYPE 2 DIABETES MELLITUS WITHOUT COMPLIC 02/24/2019 NURISNDER DO NEELA S Ot I65.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 02/24/2019 JONA HARMTANN MD Ot I51.7 CARDIOMEGALY 02/24/2019 JONA HARTMANN MD Ot K76.0 FATTY (CHANGE OF) LIVER, NOT ELSEWHERE C 02/24/2019 JONA HARTMANN MD Ot R59.1 GENERALIZED ENLARGED LYMPH NODES 02/24/2019 JONA HARTMANN MD Ot C83.08 SMALL CELL B-CELL LYMPHOMA, LYMPH NODES 02/24/2019 JONA HARTMANN MD Ot C83.08 SMALL CELL B-CELL LYMPHOMA, LYMPH NODES 02/24/2019 JONA HARTMANN MD Ot K57.30 DVRTCLOS OF LG INT W/O PERFORATION OR AB 02/24/2019 JONA HARTMANN MD Ot K76.0 FATTY (CHANGE OF) LIVER, NOT ELSEWHERE C 02/24/2019 Ot C85.80 OTH TYPES OF NON- HODGKIN LYMPHOMA, UNSPE 02/24/2019 Ot I51.7 CARD IOMEGALY 02/24/2019 Ot J18.1 LOBA R PNEUMONIA, UNSPECIFIED ORGANISM 02/24/2019 Ot M19.011 NM IMARY OSTEOARTHRITIS, RIGHT SHOULDER 02/24/2019 NURISNDER DO, NEELA S Ot I51.7 CARDIOMEGALY 02/24/2019 NURISNDER DO, NEELA S Ot R09.89 OTH SYMPTOMS AND SIGNS INVOLVING THE CIR 02/24/2019 NURISNDER DO, NEELA S Ot R91.8 OTHER NONSPECIFIC ABNORMAL FINDING OF FLORIN 02/24/2019 NURISNDER DO, NEELA S Ot R06.00 DYSPNEA, UNSPECIFIED 02/24/2019 BESSY ROJAS APRN Ot J18.9 PNEUMONIA, UNSPECIFIED ORGANISM 02/24/2019 NURISNDER DO, NEELA S Ot R06.02 SHORTNESS OF BREATH 02/24/2019 NURISNDER DO, NEELA S Ot R91.8 OTHER NONSPECIFIC ABNORMAL FINDING OF FLORIN 02/24/2019 HERMES HYMAN DOLINE S Ot J18.9 PNEUMONIA, UNSPECIFIED ORGANISM 02/24/2019 NURISNDER DO, NEELA S Ot R59.0 LOCALIZED ENLARGED LYMPH NODES 02/24/2019 NURISNDER DO, NEELA S Ot C85.90 NON-HODGKIN LYMPHOMA, UNSPECIFIED, UNSPE 02/24/2019 NURISNDER DO, NEELA S Ot R05 COUGH 02/24/2019 NURISNDER DO, NEELA S Ot R91.8 OTHER NONSPECIFIC ABNORMAL FINDING OF FLORIN 02/24/2019 JONA HARTMANN MD Ot 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, EXTRNOD A 02/24/2019 JONA HARTMANN MD, Ot 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, UNSP, NODES OF ING RE 02/24/2019 JONA HARTMANN MD Ot E78.5 HYPERLIPIDEMIA, UNSPECIFIED 02/24/2019 JONA HARTMANN MD Ot G47.33 OBSTRUCTIVE SLEEP APNEA (ADULT) (PEDIATR 02/24/2019 JONA HARTMANN MD Ot I10 ESSENTIAL (PRIMARY) HYPERTENSION 02/24/2019 JONA HARTMANN MD Ot J44.9 CHRONIC OBSTRUCTIVE PULMONARY DISEASE, U 02/24/2019 JONA HARTMANN MD Ot Z79.82 CUSTODIAL (CURRENT) USE OF ASPIRIN 02/24/2019 JONA HARTMANN MD Ot Z79.84 CUSTODIAL (CURRENT) USE OF ORAL HYPOGLYC 02/24/2019 JONA HARTMANN MD Ot Z79.899 OTHER CUSTODIAL (CURRENT) DRUG THERAPY 02/24/2019 JONA HARTMANN MD Ot Z87.891 PERSONAL HISTORY OF NICOTINE DEPENDENCE 02/25/2019 ZOË EVERETT, MYLA Ot Z01.81 8 ENCOUNTER FOR OTHER PREPROCEDURAL EXAMIN 03/03/2019 JONA HARTMANN MD Ot 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, EXTRNOD A 03/03/2019 JONA HARTMANN MD Ot 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, UNSP, NODES OF ING RE 03/03/2019 JONA HARTMANN MD Ot E78.5 HYPERLIPIDEMIA, UNSPECIFIED 03/03/2019 JONA HARTMANN MD Ot G47.33 OBSTRUCTIVE SLEEP APNEA (ADULT) (PEDIATR 03/03/2019 JONA HARTMANN MD Ot I10 ESSENTIAL (PRIMARY) HYPERTENSION 03/03/2019 JONA HARTMANN MD Ot J44.9 CHRONIC OBSTRUCTIVE PULMONARY DISEASE, U 03/03/2019 JONA HARTMANN MD Ot Z79.82 FANCY STITCHER (CURRENT) USE OF ASPIRIN 03/03/2019 JONA HARTMANN MD Ot Z79.84 CUSTODIAL (CURRENT) USE OF ORAL HYPOGLYC 03/03/2019 JONA HARTMANN MD Ot Z79.899 OTHER CUSTODIAL (CURRENT) DRUG THERAPY 03/03/2019 JONA HARTMANN MD Ot Z87.891 PERSONAL HISTORY OF NICOTINE DEPENDENCE 03/04/2019 JONA HARTMANN MD Ot 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, EXTRNOD A 03/04/2019 JONA HARTMANN MD, Ot 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, UNSP, NODES OF ING RE 03/04/2019 JONA HARTMANN MD Ot E78.5 HYPERLIPIDEMIA, UNSPECIFIED 03/04/2019 JONA HARTMANN MD Ot G47.33 OBSTRUCTIVE SLEEP APNEA (ADULT) (PEDIATR 03/04/2019 JONA HARTMANN MD Ot I10 ESSENTIAL (PRIMARY) HYPERTENSION 03/04/2019 JONA HARTMANN MD Ot J44.9 CHRONIC OBSTRUCTIVE PULMONARY DISEASE, U 03/04/2019 JONA HARTMANN MD Ot Z79.82 CUSTODIAL (CURRENT) USE OF ASPIRIN 03/04/2019 JONA HARTMANN MD Ot Z79.84 FANCY STITCHER (CURRENT) USE OF ORAL HYPOGLYC 03/04/2019 JONA HARTMANN MD Ot Z79.899 OTHER CUSTODIAL (CURRENT) DRUG THERAPY 03/04/2019 JONA HARTMANN MD Ot Z87.891 PERSONAL HISTORY OF NICOTINE DEPENDENCE 03/05/2019 MYLA CAMP MD, Ot C85.10 UNSPECIFIED B-CELL LYMPHOMA, UNSPECIFIED 03/05/2019 MYLA CAMP MD Ot E11.9 TYPE 2 DIABETES MELLITUS WITHOUT COMPLIC 03/05/2019 MYLA CAMP MD, Ot E78.00 PURE HYPERCHOLESTEROLEMIA, UNSPECIFIED 03/05/2019 MYLA CAMP MD, Ot F32.9 MAJOR DEPRESSIVE DISORDER, SINGLE EPISOD 03/05/2019 MYLA CAMP MD Ot I10 ESSENTIAL (PRIMARY) HYPERTENSION 03/05/2019 MYLA CAMP MD, Ot Z79.4 CUSTODIAL (CURRENT) USE OF INSULIN 03/05/2019 MYLA CAMP MD Ot Z79.82 FANCY STITCHER (CURRENT) USE OF ASPIRIN 03/05/2019 MYLA CAMP MD Ot Z79.89 9 OTHER CUSTODIAL (CURRENT) DRUG THERAPY 03/05/2019 MYLA CAMP MD Ot Z87.89 1 PERSONAL HISTORY OF NICOTINE DEPENDENCE 03/05/2019 MYLA CAMP MD, Ot Z88.5 ALLERGY STATUS TO NARCOTIC AGENT STATUS 03/07/2019 MYLA CAMP MD Ot C85.10 UNSPECIFIED B-CELL LYMPHOMA, UNSPECIFIED 03/07/2019 MYLA CAMP MD Ot E11.9 TYPE 2 DIABETES MELLITUS WITHOUT COMPLIC 03/07/2019 MYLA CAPM MD Ot E78.00 PURE HYPERCHOLESTEROLEMIA, UNSPECIFIED 03/07/2019 MYLA CAMP MD Ot F32.9 MAJOR DEPRESSIVE DISORDER, SINGLE EPISOD 03/07/2019 MYLA CAMP MD Ot I10 ESSENTIAL (PRIMARY) HYPERTENSION 03/07/2019 MYLA CAMP MD Ot Z79.4 CUSTODIAL (CURRENT) USE OF INSULIN 03/07/2019 MYLA CAMP MD Ot Z79.82 CUSTODIAL (CURRENT) USE OF ASPIRIN 03/07/2019 MYLA CAMP MD Ot Z79.89 9 OTHER FANCY STITCHER (CURRENT) DRUG THERAPY 03/07/2019 MYLA CAMP MD, Ot Z87.89 1 PERSONAL HISTORY OF NICOTINE DEPENDENCE 03/07/2019 MYLA CAMP MD, Ot Z88.5 ALLERGY STATUS TO NARCOTIC AGENT STATUS 03/09/2019 JONA HARTMANN MD Ot 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, EXTRNOD A 2019 MONSTER MATHUR MD Ot C85. 92 NON-HODGKIN LYMPHOMA, UNSPECIFIED, INTRA 2019 MONSTER MATHUR MD Ot D72.829 ELEVATED WHITE BLOOD CELL COUNT, UNSPECI 2019 MONSTER MATHUR MD Ot E11. 9 TYPE 2 DIABETES MELLITUS WITHOUT COMPLIC 2019 MONSTER MATHUR MD Ot E78. 00 PURE HYPERCHOLESTEROLEMIA, UNSPECIFIED 2019 MONSTER MATHUR MD Ot F41. 9 ANXIETY DISORDER, UNSPECIFIED 2019 MONSTER MATHUR MD Ot G47. 30 SLEEP APNEA, UNSPECIFIED 2019 MONSTER MATHUR MD Ot I10 ESSENTIAL (PRIMARY) HYPERTENSION 2019 MONSTER MATHUR MD Ot J18. 9 PNEUMONIA, UNSPECIFIED ORGANISM 2019 MONSTER MATHUR MD Ot J30. 2 OTHER SEASONAL ALLERGIC RHINITIS 2019 MONSTER MATHUR MD Ot J44. 0 CHR OBSTRUCTIVE PULMON DISEASE WITH (ACU 2019 MONSTER MATHUR MD, Ot J44. 1 CHRONIC OBSTRUCTIVE PULMONARY DISEASE W 2019 MONSTER MATHUR MD Ot J96. 01 ACUTE RESPIRATORY FAILURE WITH HYPOXIA 2019 MONSTER MATHUR MD Ot K21. 9 GASTRO-ESOPHAGEAL REFLUX DISEASE WITHOUT 2019 MONSTER MATHUR MD Ot K59. 09 OTHER CONSTIPATION 2019 MONSTER MATHUR MD Ot M19. 91 PRIMARY OSTEOARTHRITIS, UNSPECIFIED SITE 2019 MONSTER MATHUR MD Ot R00. 0 TACHYCARDIA, UNSPECIFIED 2019 MONSTER MATHUR MD Ot Z79. 84 CUSTODIAL (CURRENT) USE OF ORAL HYPOGLYC 2019 MONSTER MATHUR MD Ot Z79.899 OTHER FANCY STITCHER (CURRENT) DRUG THERAPY 2019 MONSTER MATHUR MD Ot Z87.820 PERSONAL HISTORY OF TRAUMATIC BRAIN INJU 2019 MONSTER MATHUR MD Ot Z87.891 PERSONAL HISTORY OF NICOTINE DEPENDENCE 2019 MONSTER MATHUR MD Ot Z97. 4 PRESENCE OF EXTERNAL HEARING-AID 03/18/2019 MONSTER MATHUR MD Ot C85. 92 NON-HODGKIN LYMPHOMA, UNSPECIFIED, INTRA 03/18/2019 MONSTER MATHUR MD Ot D72.829 ELEVATED WHITE BLOOD CELL COUNT, UNSPECI 03/18/2019 MONSTER MATHUR MD Ot E11. 9 TYPE 2 DIABETES MELLITUS WITHOUT COMPLIC 03/18/2019 MONSTER MATHUR MD Ot E78. 00 PURE HYPERCHOLESTEROLEMIA, UNSPECIFIED 03/18/2019 MONSTER MATHUR MD Ot F41. 9 ANXIETY DISORDER, UNSPECIFIED 03/18/2019 MONSTER MATHUR MD Ot G47. 30 SLEEP APNEA, UNSPECIFIED 03/18/2019 MONSTER MATHUR MD Ot I10 ESSENTIAL (PRIMARY) HYPERTENSION 03/18/2019 MONSTER MATHUR MD Ot J18. 9 PNEUMONIA, UNSPECIFIED ORGANISM 03/18/2019 MONSTER MATHUR MD Ot J30. 2 OTHER SEASONAL ALLERGIC RHINITIS 03/18/2019 MONSTER MATHUR MD Ot J44. 0 CHR OBSTRUCTIVE PULMON DISEASE WITH (ACU 03/18/2019 MONSTER MATHUR MD, Ot J44. 1 CHRONIC OBSTRUCTIVE PULMONARY DISEASE W 03/18/2019 MONSTER MATHUR MD Ot J96. 01 ACUTE RESPIRATORY FAILURE WITH HYPOXIA 03/18/2019 MONSTER MATHUR MD Ot K21. 9 GASTRO-ESOPHAGEAL REFLUX DISEASE WITHOUT 03/18/2019 MONSTER MATHUR MD Ot K59. 09 OTHER CONSTIPATION 03/18/2019 MONSTER MATHUR MD Ot M19. 91 PRIMARY OSTEOARTHRITIS, UNSPECIFIED SITE 03/18/2019 MONSTER MATHUR MD Ot R00. 0 TACHYCARDIA, UNSPECIFIED 03/18/2019 MONSTER MATHUR MD Ot Z79. 84 FANCY STITCHER (CURRENT) USE OF ORAL HYPOGLYC 03/18/2019 MONSTER MATHUR MD Ot Z79.899 OTHER FANCY STITCHER (CURRENT) DRUG THERAPY 03/18/2019 MONSTER MATHUR MD Ot Z87.820 PERSONAL HISTORY OF TRAUMATIC BRAIN INJU 03/18/2019 MONSTER MATHUR MD Ot Z87.891 PERSONAL HISTORY OF NICOTINE DEPENDENCE 03/18/2019 MONSTER MATHUR MD Ot Z97. 4 PRESENCE OF EXTERNAL HEARING-AID 03/20/2019 MONSTER MATHUR MD Ot C85. 92 NON-HODGKIN LYMPHOMA, UNSPECIFIED, INTRA 03/20/2019 MONSTER MATHUR MD Ot D72.829 ELEVATED WHITE BLOOD CELL COUNT, UNSPECI 03/20/2019 MONSTER MATHUR MD Ot E11. 9 TYPE 2 DIABETES MELLITUS WITHOUT COMPLIC 03/20/2019 MONSTER MATHUR MD Ot E78. 00 PURE HYPERCHOLESTEROLEMIA, UNSPECIFIED 03/20/2019 MONSTER MATHUR MD Ot F41. 9 ANXIETY DISORDER, UNSPECIFIED 03/20/2019 MONSTER MATHUR MD Ot G47. 30 SLEEP APNEA, UNSPECIFIED 03/20/2019 MONSTER MATHUR MD Ot I10 ESSENTIAL (PRIMARY) HYPERTENSION 03/20/2019 MONSTER MATHUR MD, Ot J18. 9 PNEUMONIA, UNSPECIFIED ORGANISM 03/20/2019 MONSTER MATHUR MD, Ot J30. 2 OTHER SEASONAL ALLERGIC RHINITIS 03/20/2019 MONSTER MATHUR MD, Ot J44. 0 CHR OBSTRUCTIVE PULMON DISEASE WITH (ACU 03/20/2019 MONSTER MATHUR MD, Ot J44. 1 CHRONIC OBSTRUCTIVE PULMONARY DISEASE W 03/20/2019 MONSTER MATHUR MD Ot J96. 01 ACUTE RESPIRATORY FAILURE WITH HYPOXIA 03/20/2019 MONSTER MATHUR MD Ot K21. 9 GASTRO-ESOPHAGEAL REFLUX DISEASE WITHOUT 03/20/2019 MONSTER MATHUR MD, Ot K59. 09 OTHER CONSTIPATION 03/20/2019 MONSTER MATHUR MD Ot M19. 91 PRIMARY OSTEOARTHRITIS, UNSPECIFIED SITE 03/20/2019 MONSTER MATHUR MD Ot R00. 0 TACHYCARDIA, UNSPECIFIED 03/20/2019 MONSTER MATHUR MD Ot Z79. 84 FANCY STITCHER (CURRENT) USE OF ORAL HYPOGLYC 03/20/2019 MONSTER MATHUR MD Ot Z79.899 OTHER CUSTODIAL (CURRENT) DRUG THERAPY 03/20/2019 MONSTER MATHUR MD Ot Z87.820 PERSONAL HISTORY OF TRAUMATIC BRAIN INJU 03/20/2019 MONSTER MATHUR MD Ot Z87.891 PERSONAL HISTORY OF NICOTINE DEPENDENCE 03/20/2019 MONSTER MATHUR MD Ot Z97. 4 PRESENCE OF EXTERNAL HEARING-AID 03/21/2019 MONSTER MATHUR MD Ot C85. 92 NON-HODGKIN LYMPHOMA, UNSPECIFIED, INTRA 03/21/2019 MONSTER MATHUR MD Ot D72.829 ELEVATED WHITE BLOOD CELL COUNT, UNSPECI 03/21/2019 MONSTER MATHUR MD Ot E11. 9 TYPE 2 DIABETES MELLITUS WITHOUT COMPLIC 03/21/2019 MONSTER MATHUR MD Ot E78. 00 PURE HYPERCHOLESTEROLEMIA, UNSPECIFIED 03/21/2019 MONSTER MATHUR MD Ot F41. 9 ANXIETY DISORDER, UNSPECIFIED 03/21/2019 MONSTER MATHUR MD Ot G47. 30 SLEEP APNEA, UNSPECIFIED 03/21/2019 MONSTER MATHUR MD Ot I10 ESSENTIAL (PRIMARY) HYPERTENSION 03/21/2019 MONSTER MATHUR MD Ot J18. 9 PNEUMONIA, UNSPECIFIED ORGANISM 03/21/2019 MONSTER MATHUR MD Ot J30. 2 OTHER SEASONAL ALLERGIC RHINITIS 03/21/2019 MONSTER MATHUR MD Ot J44. 0 CHR OBSTRUCTIVE PULMON DISEASE WITH (ACU 03/21/2019 MONSTER MATHUR MD, Ot J44. 1 CHRONIC OBSTRUCTIVE PULMONARY DISEASE W 03/21/2019 MONSTER MATHUR MD Ot J96. 01 ACUTE RESPIRATORY FAILURE WITH HYPOXIA 03/21/2019 MONSTER MATHUR MD Ot K21. 9 GASTRO-ESOPHAGEAL REFLUX DISEASE WITHOUT 03/21/2019 MONSTER MATHUR MD Ot K59. 09 OTHER CONSTIPATION 03/21/2019 MONSTER MATHUR MD Ot M19. 91 PRIMARY OSTEOARTHRITIS, UNSPECIFIED SITE 03/21/2019 MONSTER MATHUR MD Ot R00. 0 TACHYCARDIA, UNSPECIFIED 03/21/2019 MONSTER MATHUR MD Ot Z79. 84 FANCY STITCHER (CURRENT) USE OF ORAL HYPOGLYC 03/21/2019 MONSTER MATHUR MD Ot Z79.899 OTHER CUSTODIAL (CURRENT) DRUG THERAPY 03/21/2019 MONSTER MATHUR MD Ot Z87.820 PERSONAL HISTORY OF TRAUMATIC BRAIN INJU 03/21/2019 MONSTER MATHUR MD Ot Z87.891 PERSONAL HISTORY OF NICOTINE DEPENDENCE 03/21/2019 MONSTER MATHUR MD Ot Z97. 4 PRESENCE OF EXTERNAL HEARING-AID 03/22/2019 MONSTER MATHUR MD Ot C85. 92 NON-HODGKIN LYMPHOMA, UNSPECIFIED, INTRA 03/22/2019 MONSTER MATHUR MD Ot D72.829 ELEVATED WHITE BLOOD CELL COUNT, UNSPECI 03/22/2019 MONSTER MATHUR MD Ot E11. 9 TYPE 2 DIABETES MELLITUS WITHOUT COMPLIC 03/22/2019 MONSTER MATHUR MD Ot E78. 00 PURE HYPERCHOLESTEROLEMIA, UNSPECIFIED 03/22/2019 MONSTER MATHUR MD Ot F41. 9 ANXIETY DISORDER, UNSPECIFIED 03/22/2019 MONSTER MATHUR MD Ot G47. 30 SLEEP APNEA, UNSPECIFIED 03/22/2019 MONSTER MATHUR MD Ot I10 ESSENTIAL (PRIMARY) HYPERTENSION 03/22/2019 MONSTER MATHUR MD Ot J18. 9 PNEUMONIA, UNSPECIFIED ORGANISM 03/22/2019 MONSTER MATHUR MD Ot J30. 2 OTHER SEASONAL ALLERGIC RHINITIS 03/22/2019 MONSTER MATHUR MD, Ot J44. 0 CHR OBSTRUCTIVE PULMON DISEASE WITH (ACU 03/22/2019 MONSTER MATHUR MD, Ot J44. 1 CHRONIC OBSTRUCTIVE PULMONARY DISEASE W 03/22/2019 MONSTER MATHUR MD, Ot J96. 01 ACUTE RESPIRATORY FAILURE WITH HYPOXIA 03/22/2019 MONSTER MATHUR MD Ot K21. 9 GASTRO-ESOPHAGEAL REFLUX DISEASE WITHOUT 03/22/2019 MONSTER MATHUR MD Ot K59. 09 OTHER CONSTIPATION 03/22/2019 MONSTER MATHUR MD Ot M19. 91 PRIMARY OSTEOARTHRITIS, UNSPECIFIED SITE 03/22/2019 MONSTER MATHUR MD Ot R00. 0 TACHYCARDIA, UNSPECIFIED 03/22/2019 MONSTER MATHUR MD, Ot Z79. 84 FANCY STITCHER (CURRENT) USE OF ORAL HYPOGLYC 03/22/2019 MONSTER MATHUR MD Ot Z79.899 OTHER FANCY STITCHER (CURRENT) DRUG THERAPY 03/22/2019 MONSTER MATHUR MD Ot Z87.820 PERSONAL HISTORY OF TRAUMATIC BRAIN INJU 03/22/2019 MONSTER MATHUR MD Ot Z87.891 PERSONAL HISTORY OF NICOTINE DEPENDENCE 03/22/2019 MONSTER MATHUR MD Ot Z97. 4 PRESENCE OF EXTERNAL HEARING-AID 03/22/2019 MONSTER MATHUR MD Ot C85. 92 NON-HODGKIN LYMPHOMA, UNSPECIFIED, INTRA 03/22/2019 MONSTER MATHUR MD Ot D64. 9 ANEMIA, UNSPECIFIED 03/22/2019 MONSTER MATHUR MD Ot D72.829 ELEVATED WHITE BLOOD CELL COUNT, UNSPECI 03/22/2019 MONSTER MATHUR MD Ot E11. 9 TYPE 2 DIABETES MELLITUS WITHOUT COMPLIC 03/22/2019 MONSTER MATHUR MD Ot E78. 00 PURE HYPERCHOLESTEROLEMIA, UNSPECIFIED 03/22/2019 MONSTER MATHUR MD Ot F41. 9 ANXIETY DISORDER, UNSPECIFIED 03/22/2019 MONSTER MATHUR MD Ot G47. 30 SLEEP APNEA, UNSPECIFIED 03/22/2019 MONSTER MATHUR MD Ot I10 ESSENTIAL (PRIMARY) HYPERTENSION 03/22/2019 MONSTER MATHUR MD Ot J18. 9 PNEUMONIA, UNSPECIFIED ORGANISM 03/22/2019 MONSTER MATHUR MD, Ot J30. 2 OTHER SEASONAL ALLERGIC RHINITIS 03/22/2019 MONSTER MATHUR MD, Ot J44. 0 CHR OBSTRUCTIVE PULMON DISEASE WITH (ACU 03/22/2019 MONSTER MATHUR MD, Ot J44. 1 CHRONIC OBSTRUCTIVE PULMONARY DISEASE W 03/22/2019 MONSTER MATHUR MD, Ot J96. 01 ACUTE RESPIRATORY FAILURE WITH HYPOXIA 03/22/2019 MONSTER MATHUR MD Ot K21. 9 GASTRO-ESOPHAGEAL REFLUX DISEASE WITHOUT 03/22/2019 MONSTER MATHUR MD Ot K59. 09 OTHER CONSTIPATION 03/22/2019 MONSTER MATHUR MD, Ot M19. 91 PRIMARY OSTEOARTHRITIS, UNSPECIFIED SITE 03/22/2019 MONSTER MATHUR MD Ot R00. 0 TACHYCARDIA, UNSPECIFIED 03/22/2019 MONSTER MATHUR MD Ot Z79. 84 FANCY STITCHER (CURRENT) USE OF ORAL HYPOGLYC 03/22/2019 MONSTER MATHUR MD Ot Z79.899 OTHER CUSTODIAL (CURRENT) DRUG THERAPY 03/22/2019 MONSTER MATHUR MD Ot Z87.820 PERSONAL HISTORY OF TRAUMATIC BRAIN INJU 03/22/2019 MONSTER MATHUR MD Ot Z87.891 PERSONAL HISTORY OF NICOTINE DEPENDENCE 03/22/2019 MONSTER MATHUR MD Ot Z97. 4 PRESENCE OF EXTERNAL HEARING-AID 03/24/2019 MONSTER MATHUR MD Ot C85. 92 NON-HODG[place]IN LYMPHOMA, UNSPECIFIED, INTRA 03/24/2019 MONSTER MATHUR MD Ot D64. 9 ANEMIA, UNSPECIFIED 03/24/2019 MONSTER MATHUR MD Ot D72.829 ELEVATED WHITE BLOOD CELL COUNT, UNSPECI 03/24/2019 MONSTER MATHUR MD Ot E11. 9 TYPE 2 DIABETES MELLITUS WITHOUT COMPLIC 03/24/2019 MONSTER MATHUR MD Ot E78. 00 PURE HYPERCHOLESTEROLEMIA, UNSPECIFIED 03/24/2019 MONSTER MATHUR MD Ot F41. 9 ANXIETY DISORDER, UNSPECIFIED 03/24/2019 MONSTER MATHUR MD Ot G47. 30 SLEEP APNEA, UNSPECIFIED 03/24/2019 MONSTER MATHUR MD Ot I10 ESSENTIAL (PRIMARY) HYPERTENSION 03/24/2019 MONSTER MATHUR MD Ot J18. 9 PNEUMONIA, UNSPECIFIED ORGANISM 03/24/2019 MONSTER MATHUR MD Ot J30. 2 OTHER SEASONAL ALLERGIC RHINITIS 03/24/2019 MONSTER MATHUR MD Ot J44. 0 CHR OBSTRUCTIVE PULMON DISEASE WITH (ACU 03/24/2019 MONSTER MATHUR MD, Ot J44. 1 CHRONIC OBSTRUCTIVE PULMONARY DISEASE W 03/24/2019 MONSTER MATHUR MD Ot J96. 01 ACUTE RESPIRATORY FAILURE WITH HYPOXIA 03/24/2019 MONSTER MATHUR MD Ot K21. 9 GASTRO-ESOPHAGEAL REFLUX DISEASE WITHOUT 03/24/2019 MONSTER MATHUR MD Ot K59. 09 OTHER CONSTIPATION 03/24/2019 MONSTER MATHUR MD Ot M19. 91 PRIMARY OSTEOARTHRITIS, UNSPECIFIED SITE 03/24/2019 MONSTER MATHUR MD Ot R00. 0 TACHYCARDIA, UNSPECIFIED 03/24/2019 MONSTER MATHUR MD Ot Z79. 84 FANCY STITCHER (CURRENT) USE OF ORAL HYPOGLYC 03/24/2019 MONSTER MATHUR MD Ot Z79.899 OTHER CUSTODIAL (CURRENT) DRUG THERAPY 03/24/2019 MONSTER MATHUR MD Ot Z87.820 PERSONAL HISTORY OF TRAUMATIC BRAIN INJU 03/24/2019 MONSTER MATHUR MD Ot Z87.891 PERSONAL HISTORY OF NICOTINE DEPENDENCE 03/24/2019 MONSTER MATHUR MD Ot Z97. 4 PRESENCE OF EXTERNAL HEARING-AID 04/19/2019 NEELA HYMAN DO S Ot C34.90 MALIGNANT NEOPLASM OF UNSP PART OF UNSP 04/19/2019 NEELA HYMAN DO S Ot J44.9 CHRONIC OBSTRUCTIVE PULMONARY DISEASE, U 04/19/2019 NEELA HYMAN DO S Ot J96.90 RESPIRATORY FAILURE, UNSP, UNSP W HYPOXI 04/20/2019 NEELA HYMAN DO S Ot C34.90 MALIGNANT NEOPLASM OF UNSP PART OF UNSP 04/20/2019 NEELA HYMAN DO S Ot J44.9 CHRONIC OBSTRUCTIVE PULMONARY DISEASE, U 04/20/2019 NEELA HYMAN DO S Ot J96.90 RESPIRATORY FAILURE, UNSP, UNSP W HYPOXI 05/04/2019 NEELA HYMAN DO S Ot C34.90 MALIGNANT NEOPLASM OF UNSP PART OF UNSP 05/04/2019 ORENDER DO, NEELA S Ot J44.9 CHRONIC OBSTRUCTIVE PULMONARY DISEASE, U 05/04/2019 ORENDER DO, NEELA S Ot J96.90 RESPIRATORY FAILURE, UNSP, UNSP W HYPOXI 05/04/2019 ORENDER DO, NEELA S Ot C34.90 MALIGNANT NEOPLASM OF UNSP PART OF UNSP 05/04/2019 ORENDER DO, NEELA S Ot J44.9 CHRONIC OBSTRUCTIVE PULMONARY DISEASE, U 05/04/2019 ORENDER DO, NEELA S Ot J96.90 RESPIRATORY FAILURE, UNSP, UNSP W HYPOXI 05/06/2019 ORENDER DO, NEELA S Ot C34.90 MALIGNANT NEOPLASM OF UNSP PART OF UNSP 05/06/2019 ORENDER DO, NEELA S Ot J44.9 CHRONIC OBSTRUCTIVE PULMONARY DISEASE, U 05/06/2019 ORENDER DO, NEELA S Ot J96.90 RESPIRATORY FAILURE, UNSP, UNSP W HYPOXI 05/11/2019 JONA HARTMANN MD Ot 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, EXTRNOD A 05/11/2019 JONA HARTMANN MD Ot 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, UNSP, NODES OF ING RE 05/11/2019 JONA HARTMANN MD Ot E78.5 HYPERLIPIDEMIA, UNSPECIFIED 05/11/2019 JONA HARTMANN MD Ot G47.33 OBSTRUCTIVE SLEEP APNEA (ADULT) (PEDIATR 05/11/2019 JONA HARTMANN MD Ot I10 ESSENTIAL (PRIMARY) HYPERTENSION 05/11/2019 JONA HARTMANN MD Ot J44.9 CHRONIC OBSTRUCTIVE PULMONARY DISEASE, U 05/11/2019 JONA HARTMANN MD Ot Z79.82 CUSTODIAL (CURRENT) USE OF ASPIRIN 05/11/2019 JONA HARTMANN MD Ot Z79.84 FANCY STITCHER (CURRENT) USE OF ORAL HYPOGLYC 05/11/2019 JONA HARTMANN MD Ot Z79.899 OTHER FANCY STITCHER (CURRENT) DRUG THERAPY 05/11/2019 JONA HARTMANN MD Ot Z87.891 PERSONAL HISTORY OF NICOTINE DEPENDENCE 05/19/2019 JONA HARTMANN MD Ot 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, EXTRNOD A 05/19/2019 JONA HARTMANN MD Ot 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, UNSP, NODES OF ING RE 05/19/2019 JONA HARTMANN MD Ot E78.5 HYPERLIPIDEMIA, UNSPECIFIED 05/19/2019 JONA HARTMANN MD Ot G47.33 OBSTRUCTIVE SLEEP APNEA (ADULT) (PEDIATR 05/19/2019 JONA HARTMANN MD Ot I10 ESSENTIAL (PRIMARY) HYPERTENSION 05/19/2019 JONA HARTMANN MD Ot J44.9 CHRONIC OBSTRUCTIVE PULMONARY DISEASE, U 05/19/2019 JONA HARTMANN MD Ot Z51.11 ENCOUNTER FOR ANTINEOPLASTIC CHEMOTHERAP 05/19/2019 JONA HARTMANN MD Ot Z79.82 FANCY STITCHER (CURRENT) USE OF ASPIRIN 05/19/2019 JONA HARTMANN MD Ot Z79.84 CUSTODIAL (CURRENT) USE OF ORAL HYPOGLYC 05/19/2019 JONA HARTMANN MD Ot Z79.899 OTHER CUSTODIAL (CURRENT) DRUG THERAPY 05/19/2019 JONA HARTMANN MD Ot Z87.891 PERSONAL HISTORY OF NICOTINE DEPENDENCE 05/20/2019 NEELA HYMAN DO S Ot C34.90 MALIGNANT NEOPLASM OF UNSP PART OF UNSP 05/20/2019 NEELA HYMAN DO Ot J44.9 CHRONIC OBSTRUCTIVE PULMONARY DISEASE, U 05/20/2019 NEELA HYMAN DO Ot J96.90 RESPIRATORY FAILURE, UNSP, UNSP W HYPOXI 05/20/2019 JONA HARTMANN MD Ot 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, EXTRNOD A 05/20/2019 JONA HARTMANN MD Ot 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, UNSP, NODES OF ING RE 05/20/2019 JONA HARTMANN MD Ot E78.5 HYPERLIPIDEMIA, UNSPECIFIED 05/20/2019 JONA HARTMANN MD Ot G47.33 OBSTRUCTIVE SLEEP APNEA (ADULT) (PEDIATR 05/20/2019 JONA HARTMANN MD Ot I10 ESSENTIAL (PRIMARY) HYPERTENSION 05/20/2019 JONA HARTMANN MD Ot J44.9 CHRONIC OBSTRUCTIVE PULMONARY DISEASE, U 05/20/2019 JONA HARTMANN MD Ot Z51.11 ENCOUNTER FOR ANTINEOPLASTIC CHEMOTHERAP 05/20/2019 JONA HARTMANN MD Ot Z79.82 FANCY STITCHER (CURRENT) USE OF ASPIRIN 05/20/2019 JONA HARTMANN MD Ot Z79.84 CUSTODIAL (CURRENT) USE OF ORAL HYPOGLYC 05/20/2019 JONA HARTMANN MD Ot Z79.899 OTHER CUSTODIAL (CURRENT) DRUG THERAPY 05/20/2019 JONA HARTMANN MD Ot Z87.891 PERSONAL HISTORY OF NICOTINE DEPENDENCE 05/27/2019 ORENDER DO, NEELA S Ot C34.90 MALIGNANT NEOPLASM OF UNSP PART OF UNSP 05/27/2019 ORENDER DO, NEELA S Ot J44.9 CHRONIC OBSTRUCTIVE PULMONARY DISEASE, U 05/27/2019 ORENDER DO, NEELA S Ot J96.90 RESPIRATORY FAILURE, UNSP, UNSP W HYPOXI 06/01/2019 ORENDER DO, NEELA S Ot C34.90 MALIGNANT NEOPLASM OF UNSP PART OF UNSP 06/01/2019 ORENDER DO, NEELA S Ot J44.9 CHRONIC OBSTRUCTIVE PULMONARY DISEASE, U 06/01/2019 ORENDER DO, NEELA S Ot J96.90 RESPIRATORY FAILURE, UNSP, UNSP W HYPOXI 06/02/2019 JONA HARTMANN MD Ot 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, EXTRNOD A 06/02/2019 JONA HARTMANN MD Ot 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, UNSP, NODES OF ING RE 06/02/2019 JONA HARTMANN MD Ot E78.5 HYPERLIPIDEMIA, UNSPECIFIED 06/02/2019 JONA HARTMANN MD Ot G47.33 OBSTRUCTIVE SLEEP APNEA (ADULT) (PEDIATR 06/02/2019 JONA HARTMANN MD Ot I10 ESSENTIAL (PRIMARY) HYPERTENSION 06/02/2019 JONA HARTMANN MD Ot J44.9 CHRONIC OBSTRUCTIVE PULMONARY DISEASE, U 06/02/2019 JONA HARTMANN MD Ot Z79.82 FANCY STITCHER (CURRENT) USE OF ASPIRIN 06/02/2019 JONA HARTMANN MD Ot Z79.84 CUSTODIAL (CURRENT) USE OF ORAL HYPOGLYC 06/02/2019 JONA HARTMANN MD Ot Z79.899 OTHER CUSTODIAL (CURRENT) DRUG THERAPY 06/02/2019 JONA HARTMANN MD Ot Z87.891 PERSONAL HISTORY OF NICOTINE DEPENDENCE 06/07/2019 JONA HARTMANN MD Ot 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, EXTRNOD A 06/07/2019 JONA HARTMANN MD Ot I28.1 ANEURYSM OF PULMONARY ARTERY 06/07/2019 JONA HARTMANN MD Ot I51.7 CARDIOMEGALY 06/07/2019 JONA HARTMANN MD Ot J18.1 LOBAR PNEUMONIA, UNSPECIFIED ORGANISM 06/08/2019 ORENDER DO, NEELA S Ot C34.90 MALIGNANT NEOPLASM OF UNSP PART OF UNSP 06/08/2019 ORENDER DO, NEELA S Ot J44.9 CHRONIC OBSTRUCTIVE PULMONARY DISEASE, U 06/08/2019 ORENDER DO, NEELA S Ot J96.90 RESPIRATORY FAILURE, UNSP, UNSP W HYPOXI 06/10/2019 ORENDER DO, NEELA S Ot C34.90 MALIGNANT NEOPLASM OF UNSP PART OF UNSP 06/10/2019 ORENDER DO, NEELA S Ot J44.9 CHRONIC OBSTRUCTIVE PULMONARY DISEASE, U 06/10/2019 ORENDER DO, NEELA S Ot J96.90 RESPIRATORY FAILURE, UNSP, UNSP W HYPOXI 06/15/2019 ORENDER DO, NEELA S Ot C34.90 MALIGNANT NEOPLASM OF UNSP PART OF UNSP 06/15/2019 ORENDER DO, NEELA S Ot J44.9 CHRONIC OBSTRUCTIVE PULMONARY DISEASE, U 06/15/2019 ORENDER DO, NEELA S Ot J96.90 RESPIRATORY FAILURE, UNSP, UNSP W HYPOXI 06/22/2019 ORENDER DO, NEELA S Ot C34.90 MALIGNANT NEOPLASM OF UNSP PART OF UNSP 06/22/2019 ORENDER DO, NEELA S Ot J44.9 CHRONIC OBSTRUCTIVE PULMONARY DISEASE, U 06/22/2019 ORENDER DO, NEELA S Ot J96.90 RESPIRATORY FAILURE, UNSP, UNSP W HYPOXI 06/25/2019 JONA HARTMANN MD Ot 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, EXTRNOD A 06/25/2019 JONA HARTMANN MD Ot 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, UNSP, NODES OF ING RE 06/25/2019 JONA HARTMANN MD Ot E78.5 HYPERLIPIDEMIA, UNSPECIFIED 06/25/2019 JONA HARTMANN MD Ot G47.33 OBSTRUCTIVE SLEEP APNEA (ADULT) (PEDIATR 06/25/2019 JONA HARTMANN MD Ot I10 ESSENTIAL (PRIMARY) HYPERTENSION 06/25/2019 JONA HARTMANN MD Ot J44.9 CHRONIC OBSTRUCTIVE PULMONARY DISEASE, U 06/25/2019 JONA HARTMANN MD Ot Z51.11 ENCOUNTER FOR ANTINEOPLASTIC CHEMOTHERAP 06/25/2019 JONA HARTMANN MD Ot Z79.82 CUSTODIAL (CURRENT) USE OF ASPIRIN 06/25/2019 JONA HARTMANN MD, Ot Z79.84 CUSTODIAL (CURRENT) USE OF ORAL HYPOGLYC 06/25/2019 JONA HARTMANN MD, Ot Z79.899 OTHER FANCY STITCHER (CURRENT) DRUG THERAPY 06/25/2019 JONA HARTMANN MD, Ot Z87.891 PERSONAL HISTORY OF NICOTINE DEPENDENCE 06/25/2019 FLAKITA DOHERTY DO Ot E11. 9 TYPE 2 DIABETES MELLITUS WITHOUT COMPLIC 06/25/2019 FLAKITA DOHERTY DO Ot I10 ESSENTIAL (PRIMARY) HYPERTENSION 06/25/2019 FLAKITA DOHERTY DO Ot R06. 00 DYSPNEA, UNSPECIFIED 06/25/2019 JONA HARTMANN MD, Ot C83.08 SMALL CELL B-CELL LYMPHOMA, LYMPH NODES 06/25/2019 JONA HARTMANN MD, Ot C83.08 SMALL CELL B-CELL LYMPHOMA, LYMPH NODES 06/25/2019 JONA HARTMANN MD, Ot K57.30 DVRTCLOS OF LG INT W/O PERFORATION OR AB 06/25/2019 JONA HARTMANN MD, Ot K76.0 FATTY (CHANGE OF) LIVER, NOT ELSEWHERE C 07/06/2019 ORENDER DO, NEELA S Ot C34.90 MALIGNANT NEOPLASM OF UNSP PART OF UNSP 07/06/2019 ORENDER DO, NEELA S Ot J44.9 CHRONIC OBSTRUCTIVE PULMONARY DISEASE, U 07/06/2019 ORENDER DO, NEELA S Ot J96.90 RESPIRATORY FAILURE, UNSP, UNSP W HYPOXI 07/06/2019 ORENDER DO, NEELA S Ot C34.90 MALIGNANT NEOPLASM OF UNSP PART OF UNSP 07/06/2019 ORENDER DO, NEELA S Ot J44.9 CHRONIC OBSTRUCTIVE PULMONARY DISEASE, U 07/06/2019 ORENDER DO, NEELA S Ot J96.90 RESPIRATORY FAILURE, UNSP, UNSP W HYPOXI 07/08/2019 ORENDER DO, NEELA S Ot C34.90 MALIGNANT [facility]M OF [facility] 07/08/2019 ORENDER DO, NEELA S Ot J44.9 CHRONIC OBSTRUCTIVE PULMONARY DISEASE, U 07/08/2019 ORENDER DO, NEELA S Ot J96.90 RESPIRATORY FAILURE, UNSP, UNSP W HYPOXI 07/10/2019 JONA HARTMANN MD Ot 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, EXTRNOD A 07/10/2019 JONA HARTMANN MD Ot 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, UNSP, NODES OF ING RE 07/10/2019 JONA HARTMANN MD Ot E78.5 HYPERLIPIDEMIA, UNSPECIFIED 07/10/2019 JONA HARTMANN MD Ot G47.33 OBSTRUCTIVE SLEEP APNEA (ADULT) (PEDIATR 07/10/2019 JONA HARTMANN MD Ot I10 ESSENTIAL (PRIMARY) HYPERTENSION 07/10/2019 JONA HARTMANN MD Ot J44.9 CHRONIC OBSTRUCTIVE PULMONARY DISEASE, U 07/10/2019 JONA HARTMNAN MD Ot Z51.11 ENCOUNTER FOR ANTINEOPLASTIC CHEMOTHERAP 07/10/2019 JONA HARTMANN MD Ot Z79.82 CUSTODIAL (CURRENT) USE OF ASPIRIN 07/10/2019 JONA HARTMANN MD Ot Z79.84 CUSTODIAL (CURRENT) USE OF ORAL HYPOGLYC 07/10/2019 JONA HARTMANN MD Ot Z79.899 OTHER FANCY STITCHER (CURRENT) DRUG THERAPY 07/10/2019 JONA HARTMANN MD Ot Z87.891 PERSONAL HISTORY OF NICOTINE DEPENDENCE 07/14/2019 JONA HARTMANN MD, Ot 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, EXTRNOD A 07/14/2019 JONA HARTMANN MD Ot 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, UNSP, NODES OF ING RE 07/14/2019 JONA HARTMANN MD Ot E78.5 HYPERLIPIDEMIA, UNSPECIFIED 07/14/2019 JONA HARTMANN MD Ot G47.33 OBSTRUCTIVE SLEEP APNEA (ADULT) (PEDIATR 07/14/2019 JONA HARTMANN MD Ot I10 ESSENTIAL (PRIMARY) HYPERTENSION 07/14/2019 JONA HARTMANN MD Ot J44.9 CHRONIC OBSTRUCTIVE PULMONARY DISEASE, U 07/14/2019 JONA HARTMANN MD Ot Z51.11 ENCOUNTER FOR ANTINEOPLASTIC CHEMOTHERAP 07/14/2019 JONA HARTMANN MD Ot Z79.82 FANCY STITCHER (CURRENT) USE OF ASPIRIN 07/14/2019 JONA HARTMANN MD Ot Z79.84 FANCY STITCHER (CURRENT) USE OF ORAL HYPOGLYC 07/14/2019 JONA HARTMANN MD Ot Z79.899 OTHER FANCY STITCHER (CURRENT) DRUG THERAPY 07/14/2019 JONA HARTMANN MD Ot Z87.891 PERSONAL HISTORY OF NICOTINE DEPENDENCE 07/15/2019 ORENDER DO, NEELA S Ot C34.90 MALIGNANT NEOPLASM OF UNSP PART OF UNSP 07/15/2019 ORENDER DO, NEELA S Ot J44.9 CHRONIC OBSTRUCTIVE PULMONARY DISEASE, U 07/15/2019 ORENDER DO, NEELA S Ot J96.90 RESPIRATORY FAILURE, UNSP, UNSP W HYPOXI 07/15/2019 ORENDER DO, NEELA S Ot C34.90 MALIGNANT NEOPLASM OF UNSP PART OF UNSP 07/15/2019 ORENDER DO, NEELA S Ot J44.9 CHRONIC OBSTRUCTIVE PULMONARY DISEASE, U 07/15/2019 ORENDER DO, NEELA S Ot J96.90 RESPIRATORY FAILURE, UNSP, UNSP W HYPOXI 07/16/2019 JONA HARTMANN MD, Ot 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, EXTRNOD A 07/16/2019 JONA HARTMANN MD Ot 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, UNSP, NODES OF ING RE 07/16/2019 JONA HARTMANN MD Ot E78.5 HYPERLIPIDEMIA, UNSPECIFIED 07/16/2019 JONA HARTMANN MD Ot G47.33 OBSTRUCTIVE SLEEP APNEA (ADULT) (PEDIATR 07/16/2019 JONA HARTMANN MD Ot I10 ESSENTIAL (PRIMARY) HYPERTENSION 07/16/2019 JONA HARTMANN MD Ot J44.9 CHRONIC OBSTRUCTIVE PULMONARY DISEASE, U 07/16/2019 JONA HARTMANN MD Ot Z51.11 ENCOUNTER FOR ANTINEOPLASTIC CHEMOTHERAP 07/16/2019 JONA HARTMANN MD Ot Z79.82 CUSTODIAL (CURRENT) USE OF ASPIRIN 07/16/2019 JONA HARTMANN MD Ot Z79.84 FANCY STITCHER (CURRENT) USE OF ORAL HYPOGLYC 07/16/2019 JONA HARTMANN MD Ot Z79.899 OTHER CUSTODIAL (CURRENT) DRUG THERAPY 07/16/2019 JONA HARTMANN MD Ot Z87.891 PERSONAL HISTORY OF NICOTINE DEPENDENCE 07/17/2019 BESSY ROJAS APRN Ot J18.9 PNEUMONIA, UNSPECIFIED ORGANISM 07/19/2019 JONA HARTMANN MD, Ot 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, EXTRNOD A 07/19/2019 JONA HARTMANN MD Ot I28.1 ANEURYSM OF PULMONARY ARTERY 07/19/2019 JONA HARTMANN MD Ot I51.7 CARDIOMEGALY 07/19/2019 HUY HARTMANN MDNER Ot J18.1 LOBAR PNEUMONIA, UNSPECIFIED ORGANISM 07/22/2019 ORENDER DO, NEELA S Ot C34.90 MALIGNANT NEOPLASM OF UNSP PART OF UNSP 07/22/2019 ORENDER DO, NEELA S Ot J44.9 CHRONIC OBSTRUCTIVE PULMONARY DISEASE, U 07/22/2019 ORENDER DO, NEELA S Ot J96.90 RESPIRATORY FAILURE, UNSP, UNSP W HYPOXI 07/22/2019 ORENDER DO, NEELA S Ot C34.90 MALIGNANT NEOPLASM OF UNSP PART OF UNSP 07/22/2019 ORENDER DO, NEELA S Ot J44.9 CHRONIC OBSTRUCTIVE PULMONARY DISEASE, U 07/22/2019 ORENDER DO, NEELA S Ot J96.90 RESPIRATORY FAILURE, UNSP, UNSP W HYPOXI 07/22/2019 ORENDER DO, NEELA S Ot C34.90 MALIGNANT NEOPLASM OF UNSP PART OF UNSP 07/22/2019 ORENDER DO, NEELA S Ot J44.9 CHRONIC OBSTRUCTIVE PULMONARY DISEASE, U 07/22/2019 ORENDER DO, NEELA S Ot J96.90 RESPIRATORY FAILURE, UNSP, UNSP W HYPOXI 07/23/2019 MARY KATE EVERETT, JONA Ot C83.08 SMALL CELL B-CELL LYMPHOMA, LYMPH NODES 07/23/2019 MARY KATE EVERETT, JONA Ot 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, EXTRNOD A 07/23/2019 MARY KATE EVERETT, JONA Ot J98.4 OTHER DISORDERS OF LUNG 07/23/2019 W L98.9 Sore on toe Orender, Neela S. 07/26/2019 MARY KATE EVERETT, JONA Ot C83.08 SMALL CELL B-CELL LYMPHOMA, LYMPH NODES 07/26/2019 MARY KATE EVERETT, JONA Ot 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, EXTRNOD A 07/26/2019 MARY KATE EVERETT, JONA Ot J98.4 OTHER DISORDERS OF LUNG 07/27/2019 ORENDER DO, NEELA S Ot C34.90 MALIGNANT NEOPLASM OF UNSP PART OF UNSP 07/27/2019 ORENDER DO, NEELA S Ot J44.9 CHRONIC OBSTRUCTIVE PULMONARY DISEASE, U 07/27/2019 ORENDER DO, NEELA S Ot J96.90 RESPIRATORY FAILURE, UNSP, UNSP W HYPOXI 07/27/2019 ORENDER DO, NEELA S Ot C34.90 MALIGNANT NEOPLASM OF UNSP PART OF UNSP 07/27/2019 ORENDER DO, NEELA S Ot J44.9 CHRONIC OBSTRUCTIVE PULMONARY DISEASE, U 07/27/2019 ORENDER DO, NEELA S Ot J96.90 RESPIRATORY FAILURE, UNSP, UNSP W HYPOXI 07/29/2019 ORENDER DO, NEELA S Ot C34.90 MALIGNANT NEOPLASM OF UNSP PART OF UNSP 07/29/2019 ORENDER DO, NEELA S Ot J44.9 CHRONIC OBSTRUCTIVE PULMONARY DISEASE, U 07/29/2019 ORENDER DO, NEELA S Ot J96.90 RESPIRATORY FAILURE, UNSP, UNSP W HYPOXI 08/03/2019 ORENDER DO, NEELA S Ot C34.90 MALIGNANT NEOPLASM OF UNSP PART OF UNSP 08/03/2019 ORENDER DO, NEELA S Ot J44.9 CHRONIC OBSTRUCTIVE PULMONARY DISEASE, U 08/03/2019 ORENDER DO, NEELA S Ot J96.90 RESPIRATORY FAILURE, UNSP, UNSP W HYPOXI 08/10/2019 W J44.1 Real Estate Legal Secretary guerline obstructive pulmonary disease with (acute) exacerbation Orender, Neela S. 08/11/2019 W J44.1 Real Estate Legal Secretary guerline obstructive pulmonary disease with (acute) exacerbation Orender, Neela S. 08/12/2019 ORENDER DO, NEELA S Ot C34.90 MALIGNANT NEOPLASM OF UNSP PART OF UNSP 08/12/2019 ORENDER DO, NEELA S Ot J44.9 CHRONIC OBSTRUCTIVE PULMONARY DISEASE, U 08/12/2019 ORENDER DO, NEELA S Ot J96.90 RESPIRATORY FAILURE, UNSP, UNSP W HYPOXI 08/19/2019 MARY KATE EVERETT, JONA Ot 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, EXTRNOD A 08/19/2019 MARY KATE EVERETT, JONA Ot 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, UNSP, NODES OF ING RE 08/19/2019 MARY KATE EVERETT, JONA Ot E78.5 HYPERLIPIDEMIA, UNSPECIFIED 08/19/2019 MARY KATE EVERETT, JONA Ot G47.33 OBSTRUCTIVE SLEEP APNEA (ADULT) (PEDIATR 08/19/2019 JONA HARTMANN MD Ot I10 ESSENTIAL (PRIMARY) HYPERTENSION 08/19/2019 JONA HARTMANN MD Ot J44.9 CHRONIC OBSTRUCTIVE PULMONARY DISEASE, U 08/19/2019 JONA HARTMANN MD Ot Z79.82 CUSTODIAL (CURRENT) USE OF ASPIRIN 08/19/2019 JONA HARTMANN MD Ot Z79.84 FANCY STITCHER (CURRENT) USE OF ORAL HYPOGLYC 08/19/2019 JONA HARTMANN MD Ot Z79.899 OTHER CUSTODIAL (CURRENT) DRUG THERAPY 08/19/2019 JONA HARTMANN MD Ot Z87.891 PERSONAL HISTORY OF NICOTINE DEPENDENCE 08/20/2019 JONA HARTMANN MD Ot 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, EXTRNOD A 08/20/2019 JONA HARTMANN MD Ot 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, UNSP, NODES OF ING RE 08/20/2019 JONA HARTMANN MD Ot E78.5 HYPERLIPIDEMIA, UNSPECIFIED 08/20/2019 JONA HARTMANN MD Ot G47.33 OBSTRUCTIVE SLEEP APNEA (ADULT) (PEDIATR 08/20/2019 JONA HARTMANN MD Ot I10 ESSENTIAL (PRIMARY) HYPERTENSION 08/20/2019 JONA HARTMANN MD Ot J44.9 CHRONIC OBSTRUCTIVE PULMONARY DISEASE, U 08/20/2019 JONA HARTMANN MD Ot Z79.82 FANCY STITCHER (CURRENT) USE OF ASPIRIN 08/20/2019 JONA HARTMANN MD Ot Z79.84 FANCY STITCHER (CURRENT) USE OF ORAL HYPOGLYC 08/20/2019 JONA HARTMANN MD Ot Z79.899 OTHER CUSTODIAL (CURRENT) DRUG THERAPY 08/20/2019 JONA HARTMANN MD Ot Z87.891 PERSONAL HISTORY OF NICOTINE DEPENDENCE 08/20/2019 JONA HARTMANN MD Ot 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, EXTRNOD A 08/20/2019 JONA HARTMANN MD Ot 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, UNSP, NODES OF ING RE 08/20/2019 JONA HARTMANN MD Ot E78.5 HYPERLIPIDEMIA, UNSPECIFIED 08/20/2019 JONA HARTMANN MD Ot G47.33 OBSTRUCTIVE SLEEP APNEA (ADULT) (PEDIATR 08/20/2019 JONA HARTMANN MD Ot I10 ESSENTIAL (PRIMARY) HYPERTENSION 08/20/2019 JONA HARTMANN MD Ot J44.9 CHRONIC OBSTRUCTIVE PULMONARY DISEASE, U 08/20/2019 JONA HARTMANN MD, Ot Z79.82 FANCY STITCHER (CURRENT) USE OF ASPIRIN 08/20/2019 JONA HARTMANN MD Ot Z79.84 CUSTODIAL (CURRENT) USE OF ORAL HYPOGLYC 08/20/2019 JONA HARTMANN MD, Ot Z79.899 OTHER CUSTODIAL (CURRENT) DRUG THERAPY 08/20/2019 JONA HARTMANN MD, Ot Z87.891 PERSONAL HISTORY OF NICOTINE DEPENDENCE 08/24/2019 JONA HARTMANN MD, Ot C83.08 SMALL CELL B-CELL LYMPHOMA, LYMPH NODES 08/24/2019 JONA HARTMANN MD, Ot 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, EXTRNOD A 08/24/2019 JONA HARTMANN MD Ot J98.4 OTHER DISORDERS OF LUNG 08/30/2019 W E11.65 Typ e 2 diabetes mellitus with hyperglycemia Orender, Neela S. 08/30/2019 W E78.2 Mixe d hyperlipidemia Orender, Neela S. 08/30/2019 W I10 Essent ial (primary) hypertension Orender, Neela S. 08/30/2019 W J44.9 Real Estate Legal Secretary guerline obstructive pulmonary disease, unspecified Orender, Neela S. 08/30/2019 W E11.65 Typ e 2 diabetes mellitus with hyperglycemia Orender, Neela S. 08/30/2019 W E78.2 Mixe d hyperlipidemia Orender, Neela S. 08/30/2019 W I10 Essent ial (primary) hypertension Orender, Neela S. 08/30/2019 W J44.9 Real Estate Legal Secretary guerline obstructive pulmonary disease, unspecified Orender, Neela S. 09/07/2019 JONA HARTMANN MD, Ot 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, EXTRNOD A 09/07/2019 JONA HARTMANN MD Ot 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, UNSP, NODES OF ING RE 09/07/2019 JONA HARTMANN MD Ot E78.5 HYPERLIPIDEMIA, UNSPECIFIED 09/07/2019 JONA HARTMANN MD Ot G47.33 OBSTRUCTIVE SLEEP APNEA (ADULT) (PEDIATR 09/07/2019 JONA HARTMANN MD Ot I10 ESSENTIAL (PRIMARY) HYPERTENSION 09/07/2019 JONA HARTMANN MD Ot J44.9 CHRONIC OBSTRUCTIVE PULMONARY DISEASE, U 09/07/2019 JONA HARTMANN MD, Ot Z45.2 ENCOUNTER FOR ADJUSTMENT AND MANAGEMENT 09/07/2019 JONA HARTMANN MD Ot Z79.82 FANCY STITCHER (CURRENT) USE OF ASPIRIN 09/07/2019 JONA HARTMANN MD, Ot Z79.84 CUSTODIAL (CURRENT) USE OF ORAL HYPOGLYC 09/07/2019 JONA HARTMANN MD Ot Z79.899 OTHER CUSTODIAL (CURRENT) DRUG THERAPY 09/07/2019 JONA HARTMANN MD Ot Z87.891 PERSONAL HISTORY OF NICOTINE DEPENDENCE 10/13/2019 ORENDER DO, NEELA S Ot C34.90 MALIGNANT NEOPLASM OF UNSP PART OF UNSP 10/13/2019 ORENDER DO, NEELA S Ot J44.9 CHRONIC OBSTRUCTIVE PULMONARY DISEASE, U 10/13/2019 ORENDER DO, NEELA S Ot J96.90 RESPIRATORY FAILURE, UNSP, UNSP W HYPOXI 10/14/2019 ORENDER DO, NEELA S Ot C34.90 MALIGNANT NEOPLASM OF UNSP PART OF UNSP 10/14/2019 ORENDER DO, NEELA S Ot J44.9 CHRONIC OBSTRUCTIVE PULMONARY DISEASE, U 10/14/2019 ORENDER DO, NEELA S Ot J96.90 RESPIRATORY FAILURE, UNSP, UNSP W HYPOXI 10/15/2019 JONA HARTMANN MD Ot 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, EXTRNOD A 10/15/2019 JONA HARTMANN MD Ot 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, UNSP, NODES OF ING RE 10/15/2019 JONA HARTMANN MD Ot E78.5 HYPERLIPIDEMIA, UNSPECIFIED 10/15/2019 JONA HARTMANN MD Ot G47.33 OBSTRUCTIVE SLEEP APNEA (ADULT) (PEDIATR 10/15/2019 JONA HARTMANN MD Ot I10 ESSENTIAL (PRIMARY) HYPERTENSION 10/15/2019 JONA HARTMANN MD Ot J44.9 CHRONIC OBSTRUCTIVE PULMONARY DISEASE, U 10/15/2019 JONA HARTMANN MD Ot Z51.11 ENCOUNTER FOR ANTINEOPLASTIC CHEMOTHERAP 10/15/2019 JONA HARTMANN MD Ot Z79.82 CUSTODIAL (CURRENT) USE OF ASPIRIN 10/15/2019 JONA HARTMANN MD Ot Z79.84 FANCY STITCHER (CURRENT) USE OF ORAL HYPOGLYC 10/15/2019 JONA HARTMANN MD Ot Z79.899 OTHER FANCY STITCHER (CURRENT) DRUG THERAPY 10/15/2019 JONA HARTMANN MD Ot Z87.891 PERSONAL HISTORY OF NICOTINE DEPENDENCE 10/19/2019 NURISNDER DO, NEELA S Ot C34.90 MALIGNANT NEOPLASM OF UNSP PART OF UNSP 10/19/2019 NURISNDER DO, NEELA Costa Ot J44.9 CHRONIC OBSTRUCTIVE PULMONARY DISEASE, U 10/19/2019 NURISNDER DO, NEELA S Ot J96.90 RESPIRATORY FAILURE, UNSP, UNSP W HYPOXI 11/05/2019 JONA HARTMANN MD Ot 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, EXTRNOD A 11/05/2019 JONA HARTMANN MD Ot 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, UNSP, NODES OF ING RE 11/05/2019 JONA HARTMANN MD Ot E78.5 HYPERLIPIDEMIA, UNSPECIFIED 11/05/2019 JONA HARTMANN MD Ot G47.33 OBSTRUCTIVE SLEEP APNEA (ADULT) (PEDIATR 11/05/2019 JONA HARTMANN MD Ot I10 ESSENTIAL (PRIMARY) HYPERTENSION 11/05/2019 JONA HARTMANN MD Ot J44.9 CHRONIC OBSTRUCTIVE PULMONARY DISEASE, U 11/05/2019 JONA HARTMANN MD Ot Z45.2 ENCOUNTER FOR ADJUSTMENT AND MANAGEMENT 11/05/2019 JONA HARTMANN MD Ot Z79.82 FANCY STITCHER (CURRENT) USE OF ASPIRIN 11/05/2019 JONA HARTMANN MD Ot Z79.84 CUSTODIAL (CURRENT) USE OF ORAL HYPOGLYC 11/05/2019 JONA HARTMANN MD Ot Z79.899 OTHER FANCY STITCHER (CURRENT) DRUG THERAPY 11/05/2019 JONA HARTMANN MD Ot Z87.891 PERSONAL HISTORY OF NICOTINE DEPENDENCE 11/12/2019 OMARI HORTON MD Ot C83. 39 DIFFUSE LARGE B-CELL LYMPHOMA, EXTRNOD A 11/12/2019 OMARI HORTON MD Ot C85. 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, UNSP, NODES OF ING RE 11/12/2019 OMARI HORTON MD, Ot E78. 5 HYPERLIPIDEMIA, UNSPECIFIED 11/12/2019 OMARI HORTON MD Ot G47. 33 OBSTRUCTIVE SLEEP APNEA (ADULT) (PEDIATR 11/12/2019 OMARI HORTON MD Ot I10 ESSENTIAL (PRIMARY) HYPERTENSION 11/12/2019 OMARI HORTON MD Ot J44. 9 CHRONIC OBSTRUCTIVE PULMONARY DISEASE, U 11/12/2019 OMARI HORTON MD, Ot Z45. 2 ENCOUNTER FOR ADJUSTMENT AND MANAGEMENT 11/12/2019 OMARI HORTON MD, Ot Z79. 82 FANCY STITCHER (CURRENT) USE OF ASPIRIN 11/12/2019 OMARI HORTON MD, Ot Z79. 84 CUSTODIAL (CURRENT) USE OF ORAL HYPOGLYC 11/12/2019 OMARI HORTON MD, Ot Z79.899 OTHER FANCY STITCHER (CURRENT) DRUG THERAPY 11/12/2019 OMARI HORTON MD, Ot Z87.891 PERSONAL HISTORY OF NICOTINE DEPENDENCE 11/18/2019 ORENDER DO, NEELA S Ot R06.00 DYSPNEA, UNSPECIFIED 11/18/2019 BESSY ROJAS APRN Ot J18.9 PNEUMONIA, UNSPECIFIED ORGANISM 11/19/2019 BESSY ROJAS APRN Ot J18.9 PNEUMONIA, UNSPECIFIED ORGANISM 12/01/2019 W E11.40 Typ e 2 diabetes mellitus with diabetic neuropathy, unspecified Orender, Neela S. 12/01/2019 W E78.2 Mixe d hyperlipidemia Orender, Neela S. 12/01/2019 W I10 Essent ial hypertension Orender, Neela S. 12/01/2019 W J44.9 Real Estate Legal Secretary guerline obstructive pulmonary disease, unspecified Orender, Neela S. 12/01/2019 W E11.40 Typ e 2 diabetes mellitus with diabetic neuropathy, unspecified Orender, Neela S. 12/01/2019 W E78.2 Mixe d hyperlipidemia Orender, Neela S. 12/01/2019 W I10 Essent ial hypertension Orender, Neela S. 12/01/2019 W J44.9 Real Estate Legal Secretary guerline obstructive pulmonary disease, unspecified Orender, Neela S. 12/05/2019 TOM KANG MD, Ot C83.3 9 DIFFUSE LARGE B-CELL LYMPHOMA, EXTRNOD A 12/05/2019 TOM KANG MD, Ot G47.3 3 OBSTRUCTIVE SLEEP APNEA (ADULT) (PEDIATR 12/05/2019 TOM KANG MD, Ot I10 ESSENTIAL (PRIMARY) HYPERTENSION 12/05/2019 TOM KANG MD, Ot J44.9 CHRONIC OBSTRUCTIVE PULMONARY DISEASE, U Procedures Code Description Performed By Per formed On 37.22 LEFT HEART CARDIAC CATH 09/03/2005 88.42 CONT RAST AORTOGRAM 09/03/2005 88.53 LT H EART ANGIOCARDIOGRAM 09/03/2005 88.56 VANCE SHAWN ARTERIOGR-2 CATH 09/03/2005 Results Test Result Range Complete blood count (CBC) with automate d white blood cell (WBC) differential - 04/22/16 11:56 Blood leukocytes automated count (number/volume) 8.4 10*3/uL 4.3-11.0 Blood erythrocytes automated count (number/volume) 4.66 10*6/uL 4.35-5.85 Venous blood hemoglobin measurement (mass/volume) 13.4 g/dL 13.3-17.7 Blood hematocrit (volume fraction) 40 % 40-54 Automated erythrocyte mean corpuscular volume 85 [ foz_us] 80-99 Automated erythrocyte mean corpuscular h emoglobin (mass per erythrocyte) 29 pg 25-34 Automated erythrocyte mean corpuscular h emoglobin concentration measurement (mass/volume) 34 g/dL 32-36 Automated erythrocyte distribution width ratio 15. 3 % 10.0- 14.5 Automated blood platelet count (count/volume) 338 10*3/uL [...] 10*3 1.0-4.0 Blood monocytes automated count (number/volume) 0. 9 10*3 0.0-1.0 Automated eosinophil count 0.2 10*3/uL 0 .0-0.3 Automated blood basophil count (count/volume) 0.1 10*3/uL 0.0-0.1 Comprehensive metabolic panel - 04/22/16 11:56 Serum or plasma sodium measurement (moles/volume) 139 mmol/L 135-145 Serum or plasma potassium measurement (moles/volume) 4.0 mmol/L 3.6-5.0 Serum or plasma chloride measurement (moles/volume) 103 mmol/L 98-107 Carbon dioxide 24 mmol/L 21-32 Serum or plasma anion gap determination (moles/volume) 12 mmol/L 5-14 Serum or plasma urea nitrogen measurement (mass/volume ) 16 mg/dL 7-18 Serum or plasma creatinine measurement (mass/volume) 0.93 mg/dL 0.60-1.30 Serum or plasma urea nitrogen/creatinine mass ratio 17 NRG Serum or plasma creatinine measurement w ith calculation of estimated glomerular filtration rate > NRG Serum or plasma glucose measurement (mass/volume) 99 mg/dL 70-105 Serum or plasma calcium measurement (mass/volume) 9.2 mg/dL 8.5-10.1 Serum or plasma total bilirubin measurement (mass/volu me) 0.4 mg/dL 0.1-1.0 Serum or plasma alkaline phosphatase giovanna surement (enzymatic activity/volume) 37 U/L 40-136 Serum or plasma aspartate aminotransfera se measurement (enzymatic activity/volume) 31 U/L 5-34 Serum or plasma alanine aminotransferase measurement (enzymatic activity/volume) 40 U/L 0-55 Serum or plasma protein measurement (mass/volume) 7.2 g/dL 6.4-8.2 Serum or plasma albumin measurement (mass/volume) 4.6 g/dL 3.2-4.5 Complete urinalysis with reflex to cultu re - 04/22/16 12:08 Urine color determination YELLOW NRG Urine clarity determination CLEAR NR G Urine pH measurement by test strip 6 5-9 Specific gravity of urine by test strip 1.020 1.016-1.022 Urine protein assay by test strip, semi-quantitative NEGATIVE NEGATIVE Urine glucose detection by automated test strip NE GATIVE NEGATIVE Erythrocytes detection in urine sediment by light micr oscopy NEGATIVE NEGATIVE Urine ketones detection by automated test strip NE GATIVE NEGATIVE Urine nitrite detection by test strip NEGATIVE NEGATIVE Urine total bilirubin detection by test strip NEGA TIVE NEGATIVE Urine urobilinogen measurement by automated test strip (mass/volume) NORMAL NORMAL Urine leukocyte esterase detection by dipstick NEG ATIVE NEGATIVE Automated urine sediment erythrocyte cou nt by microscopy (number/high power field) NONE NRG Automated urine sediment leukocyte count by microscopy (number/high power field) NONE NRG Bacteria detection in urine sediment by light microsco py NEGATIVE NRG Squamous epithelial cells detection in u rine sediment by light microscopy 0-2 NRG Crystals detection in urine sediment by light microsco py NONE NRG Casts detection in urine sediment by light microscopy NONE NRG Mucus detection in urine sediment by light microscopy NEGATIVE NRG Complete urinalysis with reflex to culture NO NRG Influenza virus A and B antigen detectio n - 05/25/16 09:00 FLU RESULT NEGATIVE FOR INFLUENZA A AND B ANTIGENS BY IA NRG Streptococcus pyogenes antigen detection - 05/25/16 09:04 Streptococcus pyogenes antigen detection NEGATIVE NEGATIVE Bacterial throat culture - 05/25/16 09:0 4 Bacterial throat culture NBS NRG Complete blood count (CBC) with automate d white blood cell (WBC) differential - 05/25/16 09:13 Blood leukocytes automated count (number/volume) 7.9 10*3/uL 4.3-11.0 Blood erythrocytes automated count (number/volume) 4.60 10*6/uL 4.35-5.85 Venous blood hemoglobin measurement (mass/volume) 13.2 g/dL 13.3-17.7 Blood hematocrit (volume fraction) 39 % 40-54 Automated erythrocyte mean corpuscular volume 85 [ foz_us] 80-99 Automated erythrocyte mean corpuscular h emoglobin (mass per erythrocyte) 29 pg 25-34 Automated erythrocyte mean corpuscular h emoglobin concentration measurement (mass/volume) 34 g/dL 32-36 Automated erythrocyte distribution width ratio 15. 6 % 10.0- 14.5 Automated blood platelet count (count/volume) 306 10*3/uL [...] 10*3 1.0-4.0 Blood monocytes automated count (number/volume) 0. 8 10*3 0.0-1.0 Automated eosinophil count 0.2 10*3/uL 0 .0-0.3 Automated blood basophil count (count/volume) 0.1 10*3/uL 0.0-0.1 [id number] - 06/12/17 10:42 Serum or plasma urea nitrogen measurement (mass/volume ) 21 mg/dL 7-18 Serum or plasma creatinine measurement (mass/volume) 0.94 mg/dL 0.60-1.30 Serum or plasma urea nitrogen/creatinine mass ratio 22 NRG Serum or plasma creatinine measurement w ith calculation of estimated glomerular filtration rate > NRG Complete blood count (CBC) with automate d white blood cell (WBC) differential - 08/04/17 21:50 Blood leukocytes automated count (number/volume) 14.2 10*3/uL 4.3-11.0 Blood erythrocytes automated count (number/volume) 4.84 10*6/uL 4.35-5.85 Venous blood hemoglobin measurement (mass/volume) 14.1 g/dL 13.3-17.7 Blood hematocrit (volume fraction) 41 % 40-54 Automated erythrocyte mean corpuscular volume 85 [ foz_us] 80-99 Automated erythrocyte mean corpuscular h emoglobin (mass per erythrocyte) 29 pg 25-34 Automated erythrocyte mean corpuscular h emoglobin concentration measurement (mass/volume) 34 g/dL 32-36 Automated erythrocyte distribution width ratio 15. 8 % 10.0- 14.5 Automated blood platelet count (count/volume) 296 10*3/uL [...] 10*3 1.0-4.0 Blood monocytes automated count (number/volume) 0. 7 10*3 0.0-1.0 Automated eosinophil count 0.1 10*3/uL 0 .0-0.3 Automated blood basophil count (count/volume) 0.0 10*3/uL 0.0-0.1 Complete urinalysis with reflex to cultu re - 03/12/18 21:50 Urine color determination YELLOW NRG Urine clarity determination CLEAR NR G Urine pH measurement by test strip 7 5-9 Specific gravity of urine by test strip 1.010 1.016-1.022 Urine protein assay by test strip, semi-quantitative NEGATIVE NEGATIVE Urine glucose detection by automated test strip NE GATIVE NEGATIVE Erythrocytes detection in urine sediment by light micr oscopy NEGATIVE NEGATIVE Urine ketones detection by automated test strip NE GATIVE NEGATIVE Urine nitrite detection by test strip NEGATIVE NEGATIVE Urine total bilirubin detection by test strip NEGA TIVE NEGATIVE Urine urobilinogen measurement by automated test strip (mass/volume) NORMAL NORMAL Urine leukocyte esterase detection by dipstick NEG ATIVE NEGATIVE Automated urine sediment erythrocyte cou nt by microscopy (number/high power field) NONE NRG Automated urine sediment leukocyte count by microscopy (number/high power field) [HPF] NRG Bacteria detection in urine sediment by light microsco py NEGATIVE NRG Crystals detection in urine sediment by light microsco py NONE NRG Casts detection in urine sediment [...] 5-14 Serum or plasma urea nitrogen measurement (mass/volume ) 23 mg/dL 7-18 Serum or plasma creatinine measurement (mass/volume) 0.92 mg/dL 0.60-1.30 Serum or plasma urea nitrogen/creatinine mass ratio 25 NRG Serum or plasma creatinine measurement w ith calculation of estimated glomerular filtration rate > NRG Serum or plasma glucose measurement (mass/volume) 143 mg/dL 70-105 Serum or plasma calcium measurement (mass/volume) 8.9 mg/dL 8.5-10.1 Serum or plasma total bilirubin measurement (mass/volu me) 0.6 mg/dL 0.1-1.0 Serum or plasma alkaline phosphatase giovanna surement (enzymatic activity/volume) 35 U/L 40-136 Serum or plasma aspartate aminotransfera se measurement (enzymatic activity/volume) 27 U/L 5-34 Serum or plasma alanine aminotransferase measurement (enzymatic activity/volume) 42 U/L 0-55 Serum or plasma protein measurement (mass/volume) 7.0 g/dL 6.4-8.2 Serum or plasma albumin measurement (mass/volume) 4.4 g/dL 3.2-4.5 Serum or plasma amylase measurement (enz ymatic activity/volume) - 08/04/17 21:50 Serum or plasma amylase measurement (enzymatic activit y/volume) 27 U/L 25-125 Lipase - 08/04/17 21:50 Lipase 17 U/L 8-78 Blood manual differential performed dete ction - 08/04/17 21:50 Blood monocytes/100 leukocytes 2 % NRG Manual blood segmented neutrophils/100 leukocytes 85 % NRG Blood band neutrophils/100 leukocytes 0 % NRG Manual blood lymphocytes/100 leukocytes 13 % NRG Manual eosinophils/100 leukocytes in nose 0 % NRG Manual blood basophils/100 leukocytes 0 % NRG Blood erythrocyte morphology finding identification NORMAL NRG Methicillin resistant Staphylococcus aur eus (MRSA) screening culture - 08/14/17 08:00 Methicillin resistant Staphylococcus aureus (MRSA) scr eening culture NEG NRG Capillary blood glucose measurement by g lucometer (mass/volume) - 08/14/17 08:16 Capillary blood glucose measurement by glucometer (mas s/volume) 124 mg/dL 70-110 Serum or plasma potassium measurement (m oles/volume) - 08/14/17 08:25 Serum or plasma potassium measurement (moles/volume) 3.9 mmol/L 3.6-5.0 Methicillin resistant Staphylococcus aur eus (MRSA) screening culture - 12/11/17 09:05 Methicillin resistant Staphylococcus aureus (MRSA) scr eening culture NEG NRG Capillary blood glucose measurement by g lucometer (mass/volume) - 12/11/17 09:29 Capillary blood glucose measurement by glucometer (mas s/volume) 122 mg/dL 70-110 Blood CBC with ordered manual differenti al panel - 12/26/17 09:25 Blood leukocytes automated count (number/volume) 8.2 10*3/uL 4.3-11.0 Blood erythrocytes automated count (number/volume) 4.28 10*6/uL 4.35-5.85 Venous blood hemoglobin measurement (mass/volume) 12.5 g/dL 13.3-17.7 Blood hematocrit (volume fraction) 36 % 40-54 Automated erythrocyte mean corpuscular volume 84 [ foz_us] 80-99 Automated erythrocyte mean corpuscular h emoglobin (mass per erythrocyte) 29 pg 25-34 Automated erythrocyte mean corpuscular h emoglobin concentration measurement (mass/volume) 35 g/dL 32-36 Automated erythrocyte distribution width ratio 16. 4 % 10.0- 14.5 Automated blood platelet count (count/volume) 303 10*3/uL 130-400 Automated blood platelet mean volume measurement 10.4 [foz_us] 7.4-10.4 Automated blood neutrophils/100 leukocytes 66 % 42-75 Automated blood lymphocytes/100 leukocytes 22 % 12-44 Blood monocytes/100 leukocytes 8 % NRG Automated blood eosinophils/100 leukocytes 2 % 0-10 Automated blood basophils/100 leukocytes 1 % 0-10 Blood neutrophils automated count (number/volume) 5.4 10*3 1.8-7.8 Blood lymphocytes automated count (number/volume) 1.8 10*3 1.0-4.0 Blood monocytes automated count (number/volume) 0. 8 10*3 0.0-1.0 Automated eosinophil count 0.2 10*3/uL 0 .0-0.3 Automated blood basophil count (count/volume) 0.0 10*3/uL 0.0-0.1 Manual blood segmented neutrophils/100 leukocytes 65 % NRG Blood band neutrophils/100 leukocytes 0 % NRG Manual blood lymphocytes/100 leukocytes 26 % NRG Manual eosinophils/100 leukocytes in nose 1 % NRG Manual blood basophils/100 leukocytes 0 % NRG Blood erythrocyte morphology finding identification NORMAL NRG Automated reticulocyte percentage - 08/10 09:25 Blood reticulocytes count (number/volume) 80 10*9/ L 24-90 Blood reticulocytes/100 erythrocytes 1.86 % 0.50-2.40 PT panel in platelet poor plasma by coag ulation assay - 12/26/17 09:25 Prothrombin time (PT) in platelet poor plasma by coagu lation assay 12.4 s 12.2-14.7 INR in platelet poor plasma or blood by coagulation as say 0.9 0.8-1.4 Activated partial thromboplastin time (a PTT) in platelet poor plasma bycoagulation assay - 12/26/17 09:25 Activated partial thromboplastin time (a PTT) in platelet poor plasma bycoagulation assay 25 s 24-35 Automated blood complete blood count (he mogram) panel - 12/18/18 07:35 Blood leukocytes automated count (number/volume) 14.2 10*3/uL 4.3-11.0 Blood erythrocytes automated count (number/volume) 4.44 10*6/uL 4.35-5.85 Venous blood hemoglobin measurement (mass/volume) 11.9 g/dL 13.3-17.7 Blood hematocrit (volume fraction) 36 % 40-54 Automated erythrocyte mean corpuscular volume 82 [ foz_us] 80-99 Automated erythrocyte mean corpuscular h emoglobin (mass per erythrocyte) 27 pg 25-34 Automated erythrocyte mean corpuscular h emoglobin concentration measurement (mass/volume) 33 g/dL 32-36 Automated erythrocyte distribution width ratio 17. 2 % 10.0- 14.5 Automated blood platelet count (count/volume) 373 10*3/uL 130-400 Automated blood platelet mean volume measurement 9.3 [foz_us] 7.4-10.4 PT panel in platelet poor plasma by coag ulation assay - 12/18/18 07:35 Prothrombin time (PT) in platelet poor plasma by coagu lation assay 12.9 s 12.2-14.7 INR in platelet poor plasma or blood by coagulation as say 0.9 0.8-1.4 Activated partial thromboplastin time (a PTT) in platelet poor plasma bycoagulation assay - 12/18/18 07:35 Activated partial thromboplastin time (a PTT) in platelet poor plasma bycoagulation assay 28 s 24-35 Capillary blood glucose measurement by g lucometer (mass/volume) - 12/18/18 13:02 Capillary blood glucose measurement by glucometer (mas s/volume) 137 mg/dL 70-110 Methicillin resistant Staphylococcus aur eus (MRSA) screening culture - 02/26/19 07:30 Methicillin resistant Staphylococcus aureus (MRSA) scr eening culture NEG NRG Capillary blood glucose measurement by g lucometer (mass/volume) - 02/26/19 08:56 Capillary blood glucose measurement by glucometer (mas s/volume) 111 mg/dL 70-110 Complete blood count (CBC) with automate d white blood cell (WBC) differential - 03/14/19 15:25 Blood leukocytes automated count (number/volume) 52.2 10*3/uL 4.3-11.0 Blood erythrocytes automated count (number/volume) 4.13 10*6/uL 4.35-5.85 Venous blood hemoglobin measurement (mass/volume) 10.6 g/dL 13.3-17.7 Blood hematocrit (volume fraction) 34 % 40-54 Automated erythrocyte mean corpuscular volume 82 [ foz_us] 80-99 Automated erythrocyte mean corpuscular h emoglobin (mass per erythrocyte) 26 pg 25-34 Automated erythrocyte mean corpuscular h emoglobin concentration measurement (mass/volume) 31 g/dL 32-36 Automated erythrocyte distribution width ratio 20. 1 % 10.0- 14.5 Automated blood platelet count (count/volume) 366 10*3/uL 130-400 Automated blood platelet mean volume measurement 10.0 [foz_us] 7.4-10.4 Automated blood neutrophils/100 leukocytes 77 % 42-75 Automated blood lymphocytes/100 leukocytes 19 % 12-44 Blood monocytes/100 leukocytes 4 % 0-12 Automated blood eosinophils/100 leukocytes 0 % 0-10 Automated blood basophils/100 leukocytes 0 % 0-10 Blood neutrophils automated count (number/volume) 39.9 10*3 1.8-7.8 Blood lymphocytes automated count (number/volume) 10.0 10*3 1.0-4.0 Blood monocytes automated count (number/volume) 2. 0 10*3 0.0-1.0 Automated eosinophil count 0.1 10*3/uL 0 .0-0.3 Automated blood basophil count (count/volume) 0.2 10*3/uL 0.0-0.1 Comprehensive metabolic panel - 03/14/19 15:25 Serum or plasma sodium measurement (moles/volume) 141 mmol/L 135-145 Serum or plasma potassium measurement (moles/volume) 3.6 mmol/L 3.6-5.0 Serum or plasma chloride measurement (moles/volume) 98 mmol/L 98-107 Carbon dioxide 30 mmol/L 21-32 Serum or plasma anion gap determination (moles/volume) 13 mmol/L 5-14 Serum or plasma urea nitrogen measurement (mass/volume ) 24 mg/dL 7-18 Serum or plasma creatinine measurement (mass/volume) 0.95 mg/dL 0.60-1.30 Serum or plasma urea nitrogen/creatinine mass ratio 25 NRG Serum or plasma creatinine measurement w ith calculation of estimated glomerular filtration rate > NRG Serum or plasma glucose measurement (mass/volume) 165 mg/dL 70-105 Serum or plasma calcium measurement (mass/volume) 8.8 mg/dL 8.5-10.1 Serum or plasma total bilirubin measurement (mass/volu me) 1.1 mg/dL 0.1-1.0 Serum or plasma alkaline phosphatase giovanna surement (enzymatic activity/volume) 70 U/L 40-136 Serum or plasma aspartate aminotransfera se measurement (enzymatic activity/volume) 19 U/L 5-34 Serum or plasma alanine aminotransferase measurement (enzymatic activity/volume) 40 U/L 0-55 Serum or plasma protein measurement (mass/volume) 6.4 g/dL 6.4-8.2 Serum or plasma albumin measurement (mass/volume) 4.0 g/dL 3.2-4.5 CALCIUM CORRECTED 8.8 mg/dL 8.5-10.1 Blood lactic acid measurement (moles/vol ume) - 03/14/19 15:25 Blood lactic acid measurement (moles/volume) 3.20 mmol/L 0.50-2.00 Serum or plasma troponin i.cardiac measu rement (mass/volume) - 03/14/19 15:25 Serum or plasma troponin i.cardiac measurement (mass/v olume) < ng/mL <0.028 Manual absolute plasma cell count - 02/24 15:25 Blood monocytes/100 leukocytes 2 % NRG Manual blood segmented neutrophils/100 leukocytes 55 % NRG Blood band neutrophils/100 leukocytes 16 % NRG Manual blood lymphocytes/100 leukocytes 15 % NRG Manual blood lymphocytes variant/100 leukocytes 10 % NRG Blood anisocytosis detection by light microscopy M ODERATE NRG Manual blood metamyelocytes/100 leukocytes 1 % NRG Blood poikilocytosis detection by light microscopy SLIGHT NRG Manual blood nucleated erythrocytes/100 leukocytes ratio 1 NRG Blood hypochromia detection by light microscopy MO DERATE NRG Blood microcytes detection by light microscopy SLI GHT NRG Serum or plasma lithium measurement (mol es/volume) - 03/14/19 15:25 BNP PT 552.3 pg/mL <100.0 Pathologist review of blood test by comm ent - 03/14/19 15:25 Blood leukocytes automated count (number/volume) 53.2 10*3/uL 4.3-11.0 Blood erythrocytes automated count (number/volume) 4.28 10*6/uL 4.35-5.85 Venous blood hemoglobin measurement (mass/volume) 10.9 g/dL 13.3-17.7 Blood hematocrit (volume fraction) 35 % 40-54 Automated erythrocyte mean corpuscular volume 82 [ foz_us] 80-99 Automated erythrocyte mean corpuscular h emoglobin (mass per erythrocyte) 26 pg 25-34 Automated erythrocyte mean corpuscular h emoglobin concentration measurement (mass/volume) 31 g/dL 32-36 Automated erythrocyte distribution width ratio 20. 3 % 10.0- 14.5 Automated blood platelet count (count/volume) 375 10*3/uL 130-400 Automated blood platelet mean volume measurement 10.9 [foz_us] 7.4-10.4 Automated blood neutrophils/100 leukocytes TNP 42-75 Automated blood lymphocytes/100 leukocytes 20 % 12-44 Blood monocytes/100 leukocytes 7 % NRG Automated blood eosinophils/100 leukocytes TNP 0-10 Automated blood basophils/100 leukocytes 1 % 0-10 Blood neutrophils automated count (number/volume) TNP 1.8- 7.8 Blood lymphocytes automated count (number/volume) 10.5 10*3 1.0-4.0 Blood monocytes automated count (number/volume) 3. 1 10*3 0.0-1.0 Automated eosinophil count TNP 0.0 -0.3 Automated blood basophil count (count/volume) 0.3 10*3/uL 0.0-0.1 Manual blood segmented neutrophils/100 leukocytes 52 % NRG Blood band neutrophils/100 leukocytes 15 % NRG Manual blood lymphocytes/100 leukocytes 16 % NRG Manual blood lymphocytes variant/100 leukocytes 8 % NRG Blood anisocytosis detection by light microscopy M ODERATE NRG Manual blood metamyelocytes/100 leukocytes 2 % NRG Blood poikilocytosis detection by light microscopy SLIGHT NRG Blood hypochromia detection by light microscopy MO DERATE NRG Blood microcytes detection by light microscopy SLI GHT NRG Blood reticulocytes count (number/volume) 24 10*9/ L 24-90 Blood reticulocytes/100 erythrocytes 0.55 % 0.50-2.40 PROCALCITONIN (PCT) - 03/14/19 15:25 PROCALCITONIN (PCT) 0.11 ng/mL <0.10 Bacterial blood culture - 03/14/19 15:25 Bacterial blood culture NG NRG Fibrin D-dimer FEU measurement in platel et poor plasma (mass/volume) - 03/14/19 15:44 Fibrin D-dimer FEU measurement in platelet poor plasma (mass/volume) 2.25 ug/mL 0.00-0.49 Bacterial blood culture - 03/14/19 15:44 Bacterial blood culture NG NRG Serum or plasma lactate measurement (mol es/volume) - 03/14/19 18:09 Serum or plasma lactate measurement (moles/volume) 1.35 mmol/L 0.50-2.00 Methicillin resistant Staphylococcus aur eus (MRSA) screening culture - 03/14/19 20:08 Methicillin resistant Staphylococcus aureus (MRSA) scr eening culture NEG NRG Arterial blood gas measurement - 9 02:05 Blood pCO2 45 mm[Hg] 35-45 Blood pO2 49 mm[Hg] 79-93 Arterial blood bicarbonate measurement (moles/volume) 35 mmol/L 23-27 Arterial blood base excess by calculation 10.6 mmo l/L -2.5-2.5 Arterial blood oxygen saturation measurement 77 % 94-100 * Inhaled oxygen flow rate 50% NRG Arterial blood pH measurement with patient temperature correction 7.50 7.37-7.43 Arterial blood carbon dioxide, total measurement (mole s/volume) 36.2 mmol/L 21.0-31.0 Body site RIGHT RADIAL NRG Assessment of wrist artery patency prior to arterial p uncture YES-POS NRG Setting of ventilation mode NO NR G Measurement of body temperature 35.7 NRG Complete blood count (CBC) with automate d white blood cell (WBC) differential - 03/15/19 03:00 Blood leukocytes automated count (number/volume) 39.3 10*3/uL 4.3-11.0 Blood erythrocytes automated count (number/volume) 3.75 10*6/uL 4.35-5.85 Venous blood hemoglobin measurement (mass/volume) 9.6 g/dL 13.3-17.7 Blood hematocrit (volume fraction) 31 % 40-54 Automated erythrocyte mean corpuscular volume 82 [ foz_us] 80-99 Automated erythrocyte mean corpuscular h emoglobin (mass per erythrocyte) 26 pg 25-34 Automated erythrocyte mean corpuscular h emoglobin concentration measurement (mass/volume) 31 g/dL 32-36 Automated erythrocyte distribution width ratio 19. 8 % 10.0- 14.5 Automated blood platelet count (count/volume) 294 10*3/uL 130-400 Automated blood platelet mean volume measurement 9.3 [foz_us] 7.4-10.4 Automated blood neutrophils/100 leukocytes 70 % 42-75 Automated blood lymphocytes/100 leukocytes 23 % 12-44 Blood monocytes/100 leukocytes 6 % 0-12 Automated blood eosinophils/100 leukocytes 1 % 0-10 Automated blood basophils/100 leukocytes 0 % 0-10 Blood neutrophils automated count (number/volume) 27.4 10*3 1.8-7.8 Blood lymphocytes automated count (number/volume) 9.1 10*3 1.0-4.0 Blood monocytes automated count (number/volume) 2. 3 10*3 0.0-1.0 Automated eosinophil count 0.4 10*3/uL 0 .0-0.3 Automated blood basophil count (count/volume) 0.1 10*3/uL 0.0-0.1 Whole blood basic metabolic panel - 02/24 06/13 03:00 Serum or plasma sodium measurement (moles/volume) 140 mmol/L 135-145 Serum or plasma potassium measurement (moles/volume) 3.5 mmol/L 3.6-5.0 Serum or plasma chloride measurement (moles/volume) 98 mmol/L 98-107 Carbon dioxide 31 mmol/L 21-32 Serum or plasma anion gap determination (moles/volume) 11 mmol/L 5-14 Serum or plasma urea nitrogen measurement (mass/volume ) 19 mg/dL 7-18 Serum or plasma creatinine measurement (mass/volume) 0.88 mg/dL 0.60-1.30 Serum or plasma urea nitrogen/creatinine mass ratio 22 NRG Serum or plasma creatinine measurement w ith calculation of estimated glomerular filtration rate > NRG Serum or plasma glucose measurement (mass/volume) 154 mg/dL 70-105 Serum or plasma calcium measurement (mass/volume) 8.2 mg/dL 8.5-10.1 Serum or plasma phosphate measurement (m ass/volume) - 03/15/19 03:00 Serum or plasma phosphate measurement (mass/volume) 4.1 mg/dL 2.3-4.7 Magnesium - 03/15/19 03:00 Magnesium 2.1 mg/dL 1.6-2.4 Complete urinalysis with reflex to cultu re - 03/15/19 03:35 Urine color determination YELLOW NRG Urine clarity determination CLEAR NR G Urine pH measurement by test strip 5 5-9 Specific gravity of urine by test strip 1.015 1.016-1.022 Urine protein assay by test strip, semi-quantitative 1+ NEGATIVE Urine glucose detection by automated test strip NE GATIVE NEGATIVE Erythrocytes detection in urine sediment by light micr oscopy NEGATIVE NEGATIVE Urine ketones detection by automated test strip NE GATIVE NEGATIVE Urine nitrite detection by test strip NEGATIVE NEGATIVE Urine total bilirubin detection by test strip NEGA TIVE NEGATIVE Urine urobilinogen measurement by automated test strip (mass/volume) 1 mg/dL NORMAL Urine leukocyte esterase detection by dipstick NEG ATIVE NEGATIVE Automated urine sediment erythrocyte cou nt by microscopy (number/high power field) NONE NRG Automated urine sediment leukocyte count by microscopy (number/high power field) NONE NRG Bacteria detection in urine sediment by light microsco py NEGATIVE NRG Squamous epithelial cells detection in u rine sediment by light microscopy 2-5 NRG Crystals detection in urine sediment by light microsco py NONE NRG Casts detection in urine sediment by light microscopy NONE NRG Mucus detection in urine sediment by light microscopy LARGE NRG Complete urinalysis with reflex to culture NO NRG Complete blood count (CBC) with automate d white blood cell (WBC) differential - 03/16/19 03:00 Blood leukocytes automated count (number/volume) 36.9 10*3/uL 4.3-11.0 Blood erythrocytes automated count (number/volume) 3.74 10*6/uL 4.35-5.85 Venous blood hemoglobin measurement (mass/volume) 9.4 g/dL 13.3-17.7 Blood hematocrit (volume fraction) 30 % 40-54 Automated erythrocyte mean corpuscular volume 81 [ foz_us] 80-99 Automated erythrocyte mean corpuscular h emoglobin (mass per erythrocyte) 25 pg 25-34 Automated erythrocyte mean corpuscular h emoglobin concentration measurement (mass/volume) 31 g/dL 32-36 Automated erythrocyte distribution width ratio 19. 9 % 10.0- 14.5 Automated blood platelet count (count/volume) 323 10*3/uL 130-400 Automated blood platelet mean volume measurement 9.7 [foz_us] 7.4-10.4 Automated blood neutrophils/100 leukocytes 68 % 42-75 Automated blood lymphocytes/100 leukocytes 26 % 12-44 Blood monocytes/100 leukocytes 6 % 0-12 Automated blood eosinophils/100 leukocytes 0 % 0-10 Automated blood basophils/100 leukocytes 0 % 0-10 Blood neutrophils automated count (number/volume) 25.2 10*3 1.8-7.8 Blood lymphocytes automated count (number/volume) 9.4 10*3 1.0-4.0 Blood monocytes automated count (number/volume) 2. 3 10*3 0.0-1.0 Automated eosinophil count 0.0 10*3/uL 0 .0-0.3 Automated blood basophil count (count/volume) 0.1 10*3/uL 0.0-0.1 Whole blood basic metabolic panel - 02/24 07/14 03:00 Serum or plasma sodium measurement (moles/volume) 141 mmol/L 135-145 Serum or plasma potassium measurement (moles/volume) 3.6 mmol/L 3.6-5.0 Serum or plasma chloride measurement (moles/volume) 99 mmol/L 98-107 Carbon dioxide 30 mmol/L 21-32 Serum or plasma anion gap determination (moles/volume) 12 mmol/L 5-14 Serum or plasma urea nitrogen measurement (mass/volume ) 12 mg/dL 7-18 Serum or plasma creatinine measurement (mass/volume) 0.80 mg/dL 0.60-1.30 Serum or plasma urea nitrogen/creatinine mass ratio 15 NRG Serum or plasma creatinine measurement w ith calculation of estimated glomerular filtration rate > NRG Serum or plasma glucose measurement (mass/volume) 152 mg/dL 70-105 Serum or plasma calcium measurement (mass/volume) 8.1 mg/dL 8.5-10.1 Serum or plasma phosphate measurement (m ass/volume) - 03/16/19 03:00 Serum or plasma phosphate measurement (mass/volume) 3.9 mg/dL 2.3-4.7 Magnesium - 03/16/19 03:00 Magnesium 2.3 mg/dL 1.6-2.4 Vancomycin trough - 03/16/19 08:30 Vancomycin trough 8.4 ug/mL 10.0-20.0 Capillary blood glucose measurement by g lucometer (mass/volume) - 03/16/19 11:03 Capillary blood glucose measurement by glucometer (mas s/volume) 173 mg/dL 70-110 Capillary blood glucose measurement by g lucometer (mass/volume) - 03/16/19 17:34 Capillary blood glucose measurement by glucometer (mas s/volume) 179 mg/dL 70-110 Complete blood count (CBC) with automate d white blood cell (WBC) differential - 03/17/19 03:39 Blood leukocytes automated count (number/volume) 31.4 10*3/uL 4.3-11.0 Blood erythrocytes automated count (number/volume) 3.85 10*6/uL 4.35-5.85 Venous blood hemoglobin measurement (mass/volume) 9.8 g/dL 13.3-17.7 Blood hematocrit (volume fraction) 31 % 40-54 Automated erythrocyte mean corpuscular volume 81 [ foz_us] 80-99 Automated erythrocyte mean corpuscular h emoglobin (mass per erythrocyte) 26 pg 25-34 Automated erythrocyte mean corpuscular h emoglobin concentration measurement (mass/volume) 31 g/dL 32-36 Automated erythrocyte distribution width ratio 20. 2 % 10.0- 14.5 Automated blood platelet count (count/volume) 299 10*3/uL 130-400 Automated blood platelet mean volume measurement 9.5 [foz_us] 7.4-10.4 Automated blood neutrophils/100 leukocytes 63 % 42-75 Automated blood lymphocytes/100 leukocytes 31 % 12-44 Blood monocytes/100 leukocytes 6 % 0-12 Automated blood eosinophils/100 leukocytes 1 % 0-10 Automated blood basophils/100 leukocytes 0 % 0-10 Blood neutrophils automated count (number/volume) 19.6 10*3 1.8-7.8 Blood lymphocytes automated count (number/volume) 9.7 10*3 1.0-4.0 Blood monocytes automated count (number/volume) 1. 8 10*3 0.0-1.0 Automated eosinophil count 0.2 10*3/uL 0 .0-0.3 Automated blood basophil count (count/volume) 0.1 10*3/uL 0.0-0.1 Whole blood basic metabolic panel - 02/24 08/11 03:39 Serum or plasma sodium measurement (moles/volume) 139 mmol/L 135-145 Serum or plasma potassium measurement (moles/volume) 3.8 mmol/L 3.6-5.0 Serum or plasma chloride measurement (moles/volume) 100 mmol/L 98-107 Carbon dioxide 29 mmol/L 21-32 Serum or plasma anion gap determination (moles/volume) 10 mmol/L 5-14 Serum or plasma urea nitrogen measurement (mass/volume ) 14 mg/dL 7-18 Serum or plasma creatinine measurement (mass/volume) 0.85 mg/dL 0.60-1.30 Serum or plasma urea nitrogen/creatinine mass ratio 16 NRG Serum or plasma creatinine measurement w ith calculation of estimated glomerular filtration rate > NRG Serum or plasma glucose measurement (mass/volume) 162 mg/dL 70-105 Serum or plasma calcium measurement (mass/volume) 8.4 mg/dL 8.5-10.1 Serum or plasma phosphate measurement (m ass/volume) - 03/17/19 03:39 Serum or plasma phosphate measurement (mass/volume) 4.5 mg/dL 2.3-4.7 Magnesium - 03/17/19 03:39 Magnesium 2.1 mg/dL 1.6-2.4 Arterial blood gas measurement - 9 03:49 Blood pCO2 54 mm[Hg] 35-45 Blood pO2 80 mm[Hg] 79-93 Arterial blood bicarbonate measurement (moles/volume) 34 mmol/L 23-27 Arterial blood base excess by calculation 9.2 mmol /L -2.5-2.5 Arterial blood oxygen saturation measurement 93 % 94-100 * Inhaled oxygen flow rate 65% NRG Arterial blood pH measurement with patient temperature correction 7.41 7.37-7.43 Arterial blood carbon dioxide, total measurement (mole s/volume) 35.8 mmol/L 21.0-31.0 Body site RIGHT RADIAL NRG Assessment of wrist artery patency prior to arterial p uncture YES-POS NRG Setting of ventilation mode NO NR G Measurement of body temperature 36.6 NRG Capillary blood glucose measurement by g lucometer (mass/volume) - 03/17/19 11:47 Capillary blood glucose measurement by glucometer (mas s/volume) 226 mg/dL 70-110 Capillary blood glucose measurement by g lucometer (mass/volume) - 03/17/19 17:08 Capillary blood glucose measurement by glucometer (mas s/volume) 151 mg/dL 70-110 Capillary blood glucose measurement by g lucometer (mass/volume) - 03/17/19 21:04 Capillary blood glucose measurement by glucometer (mas s/volume) 184 mg/dL 70-110 Capillary blood glucose measurement by g lucometer (mass/volume) - 03/18/19 06:15 Capillary blood glucose measurement by glucometer (mas s/volume) 125 mg/dL 70-110 Complete blood count (CBC) with automate d white blood cell (WBC) differential - 03/18/19 06:46 Blood leukocytes automated count (number/volume) 22.8 10*3/uL 4.3-11.0 Blood erythrocytes automated count (number/volume) 3.84 10*6/uL 4.35-5.85 Venous blood hemoglobin measurement (mass/volume) 9.7 g/dL 13.3-17.7 Blood hematocrit (volume fraction) 31 % 40-54 Automated erythrocyte mean corpuscular volume 81 [ foz_us] 80-99 Automated erythrocyte mean corpuscular h emoglobin (mass per erythrocyte) 25 pg 25-34 Automated erythrocyte mean corpuscular h emoglobin concentration measurement (mass/volume) 31 g/dL 32-36 Automated erythrocyte distribution width ratio 20. 7 % 10.0- 14.5 Automated blood platelet count (count/volume) 273 10*3/uL 130-400 Automated blood platelet mean volume measurement 9.5 [foz_us] 7.4-10.4 Automated blood neutrophils/100 leukocytes 57 % 42-75 Automated blood lymphocytes/100 leukocytes 33 % 12-44 Blood monocytes/100 leukocytes 8 % 0-12 Automated blood eosinophils/100 leukocytes 2 % 0-10 Automated blood basophils/100 leukocytes 0 % 0-10 Blood neutrophils automated count (number/volume) 13.0 10*3 1.8-7.8 Blood lymphocytes automated count (number/volume) 7.6 10*3 1.0-4.0 Blood monocytes automated count (number/volume) 1. 9 10*3 0.0-1.0 Automated eosinophil count 0.4 10*3/uL 0 .0-0.3 Automated blood basophil count (count/volume) 0.0 10*3/uL 0.0-0.1 Whole blood basic metabolic panel - 02/24 09/11 06:46 Serum or plasma sodium measurement (moles/volume) 141 mmol/L 135-145 Serum or plasma potassium measurement (moles/volume) 3.8 mmol/L 3.6-5.0 Serum or plasma chloride measurement (moles/volume) 99 mmol/L 98-107 Carbon dioxide 28 mmol/L 21-32 Serum or plasma anion gap determination (moles/volume) 14 mmol/L 5-14 Serum or plasma urea nitrogen measurement (mass/volume ) 18 mg/dL 7-18 Serum or plasma creatinine measurement (mass/volume) 1.13 mg/dL 0.60-1.30 Serum or plasma urea nitrogen/creatinine mass ratio 16 NRG Serum or plasma creatinine measurement w ith calculation of estimated glomerular filtration rate > NRG Serum or plasma glucose measurement (mass/volume) 108 mg/dL 70-105 Serum or plasma calcium measurement (mass/volume) 8.7 mg/dL 8.5-10.1 Serum or plasma phosphate measurement (m ass/volume) - 03/18/19 06:46 Serum or plasma phosphate measurement (mass/volume) 5.2 mg/dL 2.3-4.7 Magnesium - 03/18/19 06:46 Magnesium 2.3 mg/dL 1.6-2.4 Capillary blood glucose measurement by g lucometer (mass/volume) - 03/18/19 11:28 Capillary blood glucose measurement by glucometer (mas s/volume) 181 mg/dL 70-110 Capillary blood glucose measurement by g lucometer (mass/volume) - 03/18/19 16:58 Capillary blood glucose measurement by glucometer (mas s/volume) 201 mg/dL 70-110 Capillary blood glucose measurement by g lucometer (mass/volume) - 03/18/19 21:25 Capillary blood glucose measurement by glucometer (mas s/volume) 211 mg/dL 70-110 Whole blood basic metabolic panel - 02/24 10/11 04:33 Serum or plasma sodium measurement (moles/volume) 141 mmol/L 135-145 Serum or plasma potassium measurement (moles/volume) 3.7 mmol/L 3.6-5.0 Serum or plasma chloride measurement (moles/volume) 98 mmol/L 98-107 Carbon dioxide 32 mmol/L 21-32 Serum or plasma anion gap determination (moles/volume) 11 mmol/L 5-14 Serum or plasma urea nitrogen measurement (mass/volume ) 22 mg/dL 7-18 Serum or plasma creatinine measurement (mass/volume) 1.26 mg/dL 0.60-1.30 Serum or plasma urea nitrogen/creatinine mass ratio 17 NRG Serum or plasma creatinine measurement w ith calculation of estimated glomerular filtration rate 57 NRG Serum or plasma glucose measurement (mass/volume) 141 mg/dL 70-105 Serum or plasma calcium measurement (mass/volume) 8.5 mg/dL 8.5-10.1 Serum or plasma phosphate measurement (m ass/volume) - 03/19/19 04:33 Serum or plasma phosphate measurement (mass/volume) 5.4 mg/dL 2.3-4.7 Magnesium - 03/19/19 04:33 Magnesium 2.2 mg/dL 1.6-2.4 Complete blood count (CBC) with automate d white blood cell (WBC) differential - 03/19/19 04:33 Blood leukocytes automated count (number/volume) 17.1 10*3/uL 4.3-11.0 Blood erythrocytes automated count (number/volume) 3.65 10*6/uL 4.35-5.85 Venous blood hemoglobin measurement (mass/volume) 9.4 g/dL 13.3-17.7 Blood hematocrit (volume fraction) 30 % 40-54 Automated erythrocyte mean corpuscular volume 81 [ foz_us] 80-99 Automated erythrocyte mean corpuscular h emoglobin (mass per erythrocyte) 26 pg 25-34 Automated erythrocyte mean corpuscular h emoglobin concentration measurement (mass/volume) 32 g/dL 32-36 Automated erythrocyte distribution width ratio 20. 4 % 10.0- 14.5 Automated blood platelet count (count/volume) 239 10*3/uL 130-400 Automated blood platelet mean volume measurement 9.3 [foz_us] 7.4-10.4 Automated blood neutrophils/100 leukocytes 56 % 42-75 Automated blood lymphocytes/100 leukocytes 34 % 12-44 Blood monocytes/100 leukocytes 9 % 0-12 Automated blood eosinophils/100 leukocytes 1 % 0-10 Automated blood basophils/100 leukocytes 0 % 0-10 Blood neutrophils automated count (number/volume) 9.5 10*3 1.8-7.8 Blood lymphocytes automated count (number/volume) 5.8 10*3 1.0-4.0 Blood monocytes automated count (number/volume) 1. 6 10*3 0.0-1.0 Automated eosinophil count 0.2 10*3/uL 0 .0-0.3 Automated blood basophil count (count/volume) 0.0 10*3/uL 0.0-0.1 Capillary blood glucose measurement by g lucometer (mass/volume) - 03/19/19 11:27 Capillary blood glucose measurement by glucometer (mas s/volume) 222 mg/dL 70-110 Capillary blood glucose measurement by g lucometer (mass/volume) - 03/19/19 16:52 Capillary blood glucose measurement by glucometer (mas s/volume) 130 mg/dL 70-110 Capillary blood glucose measurement by g lucometer (mass/volume) - 03/19/19 21:15 Capillary blood glucose measurement by glucometer (mas s/volume) 221 mg/dL 70-110 Complete blood count (CBC) with automate d white blood cell (WBC) differential - 03/20/19 05:25 Blood leukocytes automated count (number/volume) 17.0 10*3/uL 4.3-11.0 Blood erythrocytes automated count (number/volume) 3.73 10*6/uL 4.35-5.85 Venous blood hemoglobin measurement (mass/volume) 9.4 g/dL 13.3-17.7 Blood hematocrit (volume fraction) 30 % 40-54 Automated erythrocyte mean corpuscular volume 81 [ foz_us] 80-99 Automated erythrocyte mean corpuscular h emoglobin (mass per erythrocyte) 25 pg 25-34 Automated erythrocyte mean corpuscular h emoglobin concentration measurement (mass/volume) 31 g/dL 32-36 Automated erythrocyte distribution width ratio 20. 8 % 10.0- 14.5 Automated blood platelet count (count/volume) 234 10*3/uL 130-400 Automated blood platelet mean volume measurement 9.8 [foz_us] 7.4-10.4 Automated blood neutrophils/100 leukocytes 55 % 42-75 Automated blood lymphocytes/100 leukocytes 34 % 12-44 Blood monocytes/100 leukocytes 10 % 0-12 Automated blood eosinophils/100 leukocytes 1 % 0-10 Automated blood basophils/100 leukocytes 0 % 0-10 Blood neutrophils automated count (number/volume) 9.3 10*3 1.8-7.8 Blood lymphocytes automated count (number/volume) 5.8 10*3 1.0-4.0 Blood monocytes automated count (number/volume) 1. 7 10*3 0.0-1.0 Automated eosinophil count 0.2 10*3/uL 0 .0-0.3 Automated blood basophil count (count/volume) 0.0 10*3/uL 0.0-0.1 Whole blood basic metabolic panel - 02/24 11/11 05:25 Serum or plasma sodium measurement (moles/volume) 140 mmol/L 135-145 Serum or plasma potassium measurement (moles/volume) 3.5 mmol/L 3.6-5.0 Serum or plasma chloride measurement (moles/volume) 98 mmol/L 98-107 Carbon dioxide 30 mmol/L 21-32 Serum or plasma anion gap determination (moles/volume) 12 mmol/L 5-14 Serum or plasma urea nitrogen measurement (mass/volume ) 21 mg/dL 7-18 Serum or plasma creatinine measurement (mass/volume) 1.29 mg/dL 0.60-1.30 Serum or plasma urea nitrogen/creatinine mass ratio 16 NRG Serum or plasma creatinine measurement w ith calculation of estimated glomerular filtration rate 56 NRG Serum or plasma glucose measurement (mass/volume) 122 mg/dL 70-105 Serum or plasma calcium measurement (mass/volume) 8.9 mg/dL 8.5-10.1 Serum or plasma phosphate measurement (m ass/volume) - 03/20/19 05:25 Serum or plasma phosphate measurement (mass/volume) 5.4 mg/dL 2.3-4.7 Magnesium - 03/20/19 05:25 Magnesium 2.2 mg/dL 1.6-2.4 Capillary blood glucose measurement by g lucometer (mass/volume) - 03/20/19 10:43 Capillary blood glucose measurement by glucometer (mas s/volume) 207 mg/dL 70-110 Capillary blood glucose measurement by g lucometer (mass/volume) - 03/20/19 16:38 Capillary blood glucose measurement by glucometer (mas s/volume) 204 mg/dL 70-110 Capillary blood glucose measurement by g lucometer (mass/volume) - 03/20/19 20:45 Capillary blood glucose measurement by glucometer (mas s/volume) 160 mg/dL 70-110 Complete blood count (CBC) with automate d white blood cell (WBC) differential - 03/21/19 05:38 Blood leukocytes automated count (number/volume) 16.6 10*3/uL 4.3-11.0 Blood erythrocytes automated count (number/volume) 3.93 10*6/uL 4.35-5.85 Venous blood hemoglobin measurement (mass/volume) 10.1 g/dL 13.3-17.7 Blood hematocrit (volume fraction) 32 % 40-54 Automated erythrocyte mean corpuscular volume 81 [ foz_us] 80-99 Automated erythrocyte mean corpuscular h emoglobin (mass per erythrocyte) 26 pg 25-34 Automated erythrocyte mean corpuscular h emoglobin concentration measurement (mass/volume) 32 g/dL 32-36 Automated erythrocyte distribution width ratio 20. 9 % 10.0- 14.5 Automated blood platelet count (count/volume) 231 10*3/uL 130-400 Automated blood platelet mean volume measurement 10.1 [foz_us] 7.4-10.4 Automated blood neutrophils/100 leukocytes 53 % 42-75 Automated blood lymphocytes/100 leukocytes 39 % 12-44 Blood monocytes/100 leukocytes 7 % 0-12 Automated blood eosinophils/100 leukocytes 1 % 0-10 Automated blood basophils/100 leukocytes 0 % 0-10 Blood neutrophils automated count (number/volume) 8.8 10*3 1.8-7.8 Blood lymphocytes automated count (number/volume) 6.5 10*3 1.0-4.0 Blood monocytes automated count (number/volume) 1. 2 10*3 0.0-1.0 Automated eosinophil count 0.1 10*3/uL 0 .0-0.3 Automated blood basophil count (count/volume) 0.0 10*3/uL 0.0-0.1 Whole blood basic metabolic panel - 02/24 12/11 05:38 Serum or plasma sodium measurement (moles/volume) 141 mmol/L 135-145 Serum or plasma potassium measurement (moles/volume) 3.5 mmol/L 3.6-5.0 Serum or plasma chloride measurement (moles/volume) 100 mmol/L 98-107 Carbon dioxide 30 mmol/L 21-32 Serum or plasma anion gap determination (moles/volume) 11 mmol/L 5-14 Serum or plasma urea nitrogen measurement (mass/volume ) 18 mg/dL 7-18 Serum or plasma creatinine measurement (mass/volume) 1.22 mg/dL 0.60-1.30 Serum or plasma urea nitrogen/creatinine mass ratio 15 NRG Serum or plasma creatinine measurement w ith calculation of estimated glomerular filtration rate 59 NRG Serum or plasma glucose measurement (mass/volume) 145 mg/dL 70-105 Serum or plasma calcium measurement (mass/volume) 9.1 mg/dL 8.5-10.1 Serum or plasma phosphate measurement (m ass/volume) - 03/21/19 05:38 Serum or plasma phosphate measurement (mass/volume) 4.8 mg/dL 2.3-4.7 Magnesium - 03/21/19 05:38 Magnesium 2.2 mg/dL 1.6-2.4 Capillary blood glucose measurement by g lucometer (mass/volume) - 03/21/19 10:36 Capillary blood glucose measurement by glucometer (mas s/volume) 283 mg/dL 70-110 Capillary blood glucose measurement by g lucometer (mass/volume) - 03/21/19 16:20 Capillary blood glucose measurement by glucometer (mas s/volume) 198 mg/dL 70-110 Capillary blood glucose measurement by g lucometer (mass/volume) - 03/21/19 21:05 Capillary blood glucose measurement by glucometer (mas s/volume) 153 mg/dL 70-110 Complete blood count (CBC) with automate d white blood cell (WBC) differential - 03/22/19 05:31 Blood leukocytes automated count (number/volume) 18.0 10*3/uL 4.3-11.0 Blood erythrocytes automated count (number/volume) 3.98 10*6/uL 4.35-5.85 Venous blood hemoglobin measurement (mass/volume) 10.0 g/dL 13.3-17.7 Blood hematocrit (volume fraction) 32 % 40-54 Automated erythrocyte mean corpuscular volume 81 [ foz_us] 80-99 Automated erythrocyte mean corpuscular h emoglobin (mass per erythrocyte) 25 pg 25-34 Automated erythrocyte mean corpuscular h emoglobin concentration measurement (mass/volume) 31 g/dL 32-36 Automated erythrocyte distribution width ratio 21. 4 % 10.0- 14.5 Automated blood platelet count (count/volume) 243 10*3/uL 130-400 Automated blood platelet mean volume measurement 10.2 [foz_us] 7.4-10.4 Automated blood neutrophils/100 leukocytes 53 % 42-75 Automated blood lymphocytes/100 leukocytes 39 % 12-44 Blood monocytes/100 leukocytes 8 % 0-12 Automated blood eosinophils/100 leukocytes 0 % 0-10 Automated blood basophils/100 leukocytes 0 % 0-10 Blood neutrophils automated count (number/volume) 9.5 10*3 1.8-7.8 Blood lymphocytes automated count (number/volume) 6.9 10*3 1.0-4.0 Blood monocytes automated count (number/volume) 1. 4 10*3 0.0-1.0 Automated eosinophil count 0.1 10*3/uL 0 .0-0.3 Automated blood basophil count (count/volume) 0.1 10*3/uL 0.0-0.1 Manual absolute plasma cell count - 02/24 01/11 05:31 Blood monocytes/100 leukocytes 3 % NRG Manual blood segmented neutrophils/100 leukocytes 48 % NRG Blood band neutrophils/100 leukocytes 0 % NRG Manual blood lymphocytes/100 leukocytes 49 % NRG Manual eosinophils/100 leukocytes in nose 0 % NRG Manual blood basophils/100 leukocytes 0 % NRG Blood polychromasia detection by light microscopy SLIGHT NRG Blood anisocytosis detection by light microscopy M ARKED NRG Blood ovalocytes detection by light microscopy SLI GHT NRG Blood target cells detection by light microscopy S LIGHT NRG Whole blood basic metabolic panel - 02/24 01/11 05:31 Serum or plasma sodium measurement (moles/volume) 139 mmol/L 135-145 Serum or plasma potassium measurement (moles/volume) 3.7 mmol/L 3.6-5.0 Serum or plasma chloride measurement (moles/volume) 100 mmol/L 98-107 Carbon dioxide 27 mmol/L 21-32 Serum or plasma anion gap determination (moles/volume) 12 mmol/L 5-14 Serum or plasma urea nitrogen measurement (mass/volume ) 18 mg/dL 7-18 Serum or plasma creatinine measurement (mass/volume) 1.19 mg/dL 0.60-1.30 Serum or plasma urea nitrogen/creatinine mass ratio 15 NRG Serum or plasma creatinine measurement w ith calculation of estimated glomerular filtration rate > NRG Serum or plasma glucose measurement (mass/volume) 140 mg/dL 70-105 Serum or plasma calcium measurement (mass/volume) 9.1 mg/dL 8.5-10.1 Serum or plasma phosphate measurement (m ass/volume) - 03/22/19 05:31 Serum or plasma phosphate measurement (mass/volume) 4.3 mg/dL 2.3-4.7 Magnesium - 03/22/19 05:31 Magnesium 2.1 mg/dL 1.6-2.4 Capillary blood glucose measurement by g lucometer (mass/volume) - 03/22/19 11:01 Capillary blood glucose measurement by glucometer (mas s/volume) 174 mg/dL 70-110 Encounters ACCT No. Visit Date/Time Discharge Status Pt. Type Provider Facility Loc./Unit Complaint 03/17/18 05/07/2019 08:16:56 05/07/2019 23:5 9:59 CLS Outpatient Neela Hyman 07/06/2019 11:02:00 Document Registration [id number] 11/30/2019 10:23:00 23:59:59 CLS Outpatient TOM KANG MD [facility] ONC [id number] 11/05/2019 08:33:00 23:59:59 CLS Outpatient CLIFFORD EVERETT, OMARI [facility] ONC [id number] 09/29/2019 13:04:00 08:32:00 DIS Outpatient JONA HARTMANN MD, [facility] ONC [id number] 07/27/2019 09:30:00 020 00:01:00 DIS Outpatient NEELA HYMAN DO [facility] PULM COPD,RESPIRATOR Y FAILURE [id number] 07/28/2019 12:31:00 020 00:01:00 DIS Outpatient JONA HARTMANN MD, [facility] ONC [id number] 07/20/2019 09:28:00 23:59:59 CLS Outpatient JONA HARTMANN MD, [facility] RAD LYMPHOMA [id number] 06/22/2019 09:30:00 00:01:00 DIS Outpatient NEELA HYMAN DO [facility] PULM COPD,RESPIRATOR Y FAILURE [id number] 06/03/2019 13:42:00 23:59:59 CLS Outpatient JONA HARTMANN MD [facility] RAD COUGH,DIFFUSE LARGE B C ELL LYMPHOMA [id number] 05/12/2019 08:40:00 00:01:00 DIS Outpatient JONA HARTMANN MD, [facility] ONC [id number] 03/14/2019 18:40:00 14:45:00 DIS Outpatient MONSTER MATHUR MD [facility] 4TH R LUNG MASS,PNEUMONIA [id number] 03/04/2019 08:15:00 23:59:59 CLS Outpatient JONA HARTMANN MD, [facility] CARD DIFFUSE LARGE B CELL LY MPHOMA [id number] 02/26/2019 07:19:00 12:00:00 DIS Outpatient MYLA CAMP MD [facility] SDC LUNG CANCER [id number] 02/25/2019 11:53:00 12:49:00 DIS Outpatient MYLA CAMP MD [facility] PREOP LUNG CANCER [id number] 10/28/2018 11:15:00 00:01:00 DIS Outpatient JONA HARTMANN MD, [facility] ONC [id number] 12/18/2018 07:09:00 13:20:00 DIS Outpatient NEELA HYMAN DO [facility] RAD RUL MASS [id number] 12/08/2018 07:45:00 23:59:59 CLS Outpatient NEELA HYMAN DO [facility] RAD R LUNG MASS, CO UGH, DYSPNEA [id number] 11/20/2018 13:13:00 23:59:59 CLS Outpatient CRISTIANA ARTHUR NEELA S [facility] RAD PNEUMONIA, DYSP MACARENA [id number] 08/19/2018 08:56:00 00:01:00 DIS Outpatient JONA HARTMANN MD [facility] ONC [id number] 09/07/2018 12:21:00 23:59:59 CLS Outpatient SETH HYMAN DOQUELINE S [facility] RAD R UPPER LOBE RO UND INFILTRATE [id number] 09/02/2018 16:48:00 23:59:59 CLS 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 R05-786.2 [id number] 08/20/2018 11:45:00 23:59:59 CLS Outpatient SETH HYMAN DOQUELINE S [facility] CARD DYSPNEA [id number] 08/11/2018 09:36:00 23:59:59 CLS Outpatient CRISTIANA ARTHUR NEELA S [facility] RAD DSYNEA, COUGH [id number] 04/02/2018 14:25:00 018 00:01:00 DIS Outpatient JONA HARTMANN MD, [facility] ONC [id number] 02/20/2018 10:28:00 018 10:33:00 DIS Outpatient JONA HARTMANN MD [facility] ONC [id number] 12/26/2017 10:45:00 018 23:59:59 CLS Outpatient JONA HARTMANN MD [facility] SDC LYMPHOMA SMALL LYMPHOCY TIC,DIFFUASE LARGE B CELL [id number] 12/23/2017 07:51:00 [place] 23:59:59 CLS Outpatient JONA HARTMANN MD, [facility] RAD LYMPHOMA,SMALL LYMPHOCY CTIC [id number] 12/22/2017 12:25:00 [place] 23:59:59 CLS Outpatient JONA HARTMANN MD, [facility] RAD LYMPHOMA,SMALL LYMPHOCY CTIC [id number] 12/18/2017 14:38:00 018 23:59:59 CLS Outpatient JONA HARTMANN MD [facility] ONC [id number] 12/11/2017 08:50:00 018 16:20:00 DIS Outpatient MYLA CAMP MD [facility] SDC UPPER BACK LESION [id number] 12/10/2017 12:00:00 018 12:22:00 DIS Outpatient MYLA CAMP MD [facility] PREOP UPPER BACK LESION [id number] 09/18/2017 14:44:00 018 00:01:00 DIS Outpatient JONA HARTMANN MD [facility] ONC [id number] 08/14/2017 07:44:00 018 14:55:00 DIS Outpatient MYLA CAMP MD [facility] SDC LYMPHADENOPATHY, LIPOMA LEFT FLANK [id number] 08/13/2017 11:36:00 018 13:12:00 DIS Outpatient MYLA CAMP MD [facility] PREOP LYMPHADENOPATHY, LIPOMA LEFT FLANK [id number] 08/11/2017 11:31:00 018 23:59:59 CLS Outpatient JONA HARTMANN MD [facility] RAD R59.1 LUMPHADENOPATHY [id number] 08/04/2017 21:13:00 018 00:10:00 DIS Emergency VIY NUNN MD [facility] ER L SIDE PAIN/SOB [id number] 06/23/2017 11:31:00 018 23:59:59 CLS Outpatient NEELA HYMAN DO [facility] RAD I65.21 [id number] 06/12/2017 10:33:00 018 23:59:59 CLS Outpatient SAMMY PAIZ APRN [facility] RAD RIGHT NECK SWEL LING [id number] 05/27/2017 10:15:00 018 23:59:59 CLS Preadmit FLAKITA DOHERTY DO [facility] PULM SOB [id number] 05/13/2017 09:00:00 018 00:01:00 DIS Outpatient FLAKITA DOHERTY DO [facility] PULM SOB [id number] 02/20/2017 09:00:00 017 00:01:00 DIS Outpatient BESSY FLAKITA ARTHUR [facility] PUL SOB [id number] 01/09/2017 09:00:00 017 00:01:00 DIS Outpatient BESSY FLAKITA ARTHUR [facility] PUL SOB [id number] 10/10/2016 14:00:00 017 14:39:00 DIS Outpatient BESSY ARTHURFLAKITA [facility] SLEEP KENIA, OBESITY, WAKING SO A [id number] 09/11/2016 12:54:00 017 23:59:59 CLS Outpatient FLAKITA DOHERTY DO [facility] RT SOB [id number] 06/13/2016 15:52:00 017 23:59:59 CLS Outpatient BROCK SCHMIDT APRN [facility] RAD COUGH,WHEEZING, CONGESTION [id number] 05/25/2016 08:26:00 016 10:55:00 DIS Emergency PO EVERETT, MICHELLE Schaeffer [facility] ER CONGESTION/BREAKING OUT IN A SWEAT [id number] 04/22/2016 11:08:00 016 23:59:59 CLS Outpatient NEELA HYMAN DO [facility] RAD L FLANK ABD LAI N [id number] 08/14/2015 14:25:00 016 23:59:59 CLS Outpatient NEELA HYMAN DO [facility] RAD COUGH,WHEEZING [id number] 03/29/2015 10:22:00 015 14:55:00 DIS Outpatient ZAFUANDREI AGUIRRE MD [facility] SDC LT.CARPEL TUNNEL [id number] 03/28/2015 13:45:00 23:59:59 CLS Outpatient ANDREI DUNLAP MD [facility] PREOP LT CARPEL TUNNEL [id number] 09/21/2014 12:39:00 23:59:59 CLS Outpatient YANCI GARDUNO [facility] CARD COUGHING WHEEZ ING [id number] 07/16/2018 12:00:00 Document Registration [id number] 08/15/2016 09:39:00 Document Registration [id number] 08/15/2016 09:39:00 Document Registration [id number] 08/15/2016 09:39:00 Document Registration [id number] 08/15/2016 09:39:00 Document Registration [id number] 09/22/2014 08:31:00 Document Registration [id number] 10/21/2008 08:05:00 Document Registration [id number] 09/16/2005 20:16:00 Document Registration [id number] 09/03/2005 15:15:00 Document Registration
[2019-12-09 09:34] LABS: ALANINE AMINOTRANSFERASE 20 U/L (0-55)
[2019-12-09 10:03] LABS: BAND NEUTROPHILS 1 %; BASOPHILS % (MANUAL) 0 %; EOSINOPHILS % (MANUAL) 1 %; LYMPHOCYTES % (MANUAL) 4 %; MONOCYTES % (MANUAL) 8 %; NEUTROPHILS % (MANUAL) 86 %
[2019-12-09 10:04] LABS: ANISOCYTOSIS SLIGHT; ELLIPT/OVALOCYTES SLIGHT; HYPOCHROMASIA SLIGHT; POIKILOCYTOSIS SLIGHT; TARGET CELLS SLIGHT
[2019-12-09] MEDS ORDERED: KETOROLAC 30 MG/ML VIAL IVP STA (10:06)
[2019-12-09] MEDS ORDERED: HOLD METFORMIN - RECEIVED CONTRAST 20 ML VIAL IV SCH (10:15)
[2019-12-09] MEDS ORDERED: CATHETER FLUSH 10 ML SYR IV PRN (10:15)
[2019-12-09] MEDS ORDERED: IOHEXOL 350 MG/ML 100 ML (OMNIPAQUE 350) VIAL IV ONE (10:15)
[2019-12-09] MEDS ORDERED: NS 100 ML (IVPB) BAG IV ONE (10:15)
--- NOTE | 2019-12-09 10:48 | NUR ---
Called pt's with update at this time.
--- NOTE | 2019-12-09 10:58 | Diagnostic Imaging Report ---
EXAMINATION: CT Abdomen and Pelvis with intravenous contrast. TECHNIQUE: Multiple contiguous axial images were obtained through the abdomen and pelvis after the uneventful administration of intravenous contrast. All CT scans use one or more of the following dose optimizing techniques: automated exposure control, MA and/or KvP adjustment based on a patient size and exam type, or iterative reconstruction. HISTORY: Left-sided abdominal pain. COMPARISON: 12/22/2017. FINDINGS: Limited views of the lower thorax show coronary artery calcifications. Liver is steatotic. No focal liver lesions are seen. There is no biliary ductal dilation. Gallbladder is normal. Pancreas is normal. Spleen is normal. Adrenal glands are normal. There is a 3.7 x 2.7 cm cystic lesion in the interpolar zone of the left kidney with internal calcifications. This is similar in size to 12/22/2017. There is no hydronephrosis. Urinary bladder is normal. Visualized bowel is normal in caliber without obstruction or inflammation. No free fluid or air. No abdominal or pelvic lymphadenopathy. Aorta is normal in caliber without aneurysm. There are no suspicious osseus lesions. IMPRESSION: 1. Steatotic liver. 2. Indeterminate cystic lesion with internal calcifications in the left kidney, similar in size to 2018 exam. It appears more complex than on the prior exam and a six-month follow-up renal protocol CT is recommended. Dictated by: Dictated on workstation # [id number]
[2019-12-09 11:27] LABS: BILIRUBIN,URINE NEGATIVE (NEGATIVE); CLARITY,URINE CLEAR; COLOR,URINE YELLOW; GLUCOSE, URINE (UA) NEGATIVE (NEGATIVE); KETONES,URINE NEGATIVE (NEGATIVE); LEUKOCYTE ESTERASE ,URINE NEGATIVE (NEGATIVE); NITRITE,URINE NEGATIVE (NEGATIVE); PROTEIN,URINE NEGATIVE (NEGATIVE)
[2019-12-09 11:35] LABS: BACTERIA,URINE NEGATIVE /HPF; RBC,URINE RARE /HPF; WBC,URINE 0-2 /HPF
--- NOTE | 2019-12-09 11:52 | NUR ---
Spoke with pt's regarding discharge plan.
[2019-12-09] MEDS ORDERED: HYDR-83 PO (11:55)
[2019-12-09] MEDS ORDERED: PRD20T PO (11:55)
[2019-12-09 12:07] VITALS: BP 138/99
== END 2019-12-09 12:07 | disposition home or self-care (01) ==
LOC: EDUNIT# 08:34 → ER 08:35
DX: M54.32 Sciatica, left side (principal); J44.9 Chronic obstructive pulmonary disease, unspecified; I10 Essential (primary) hypertension; E78.00 Pure hypercholesterolemia, unspecified; E11.9 Type 2 diabetes mellitus without complications; K21.9 Gastro-esophageal reflux disease without esophagitis; F41.9 Anxiety disorder, unspecified; K59.09 Other constipation; Z85.72 Personal history of non-Hodgkin lymphomas; Z85.118 Personal history of other malignant neoplasm of bronchus and lung; Z88.5 Allergy status to narcotic agent; Z79.51 Long term (current) use of inhaled steroids; Z79.84 Long term (current) use of oral hypoglycemic drugs; Z79.52 Long term (current) use of systemic steroids; Z87.891 Personal history of nicotine dependence; Z77.22 Contact with and (suspected) exposure to environmental tobacco smoke (acute) (chronic); Z87.820 Personal history of traumatic brain injury; Z79.82 Long term (current) use of aspirin
CPT/HCPCS: 36415; 74177; 80053; 81000; 85007; 85027; 86141

== ENCOUNTER 2020-02-01 10:56 | Outpatient (RCR) | payer OTHER, MEDICARE ==
[~2020-02-01 10:56] MED LIST changes: +ACHD5005 PO; +PANT20TA18 PO; -PANT20TA3 PO
[2020-02-01 11:14] LABS: BASOPHILS % (AUTO) 1 % (0-10); EOSINOPHILS # (AUTO) 0.3 10^3/uL (0.0-0.3); EOSINOPHILS % (AUTO) 3 % (0-10); HEMATOCRIT 36 % (40-54); HEMOGLOBIN 11.4 G/DL (13.3-17.7); LYMPHOCYTES # (AUTO) 0.8 X 10^3 (1.0-4.0); LYMPHOCYTES % (AUTO) 9 % (12-44); MEAN CORPUSCULAR HEMOGLOBIN 26 PG (25-34); MEAN CORPUSCULAR HGB CONC 32 G/DL (32-36); MEAN CORPUSCULAR VOLUME 83 FL (80-99); MEAN PLATELET VOLUME 9.7 FL (7.4-10.4); MONOCYTES # (AUTO) 1.2 X 10^3 (0.0-1.0); MONOCYTES % (AUTO) 15 % (0-12); NEUTROPHILS # (AUTO) 6.2 X 10^3 (1.8-7.8); NEUTROPHILS % (AUTO) 73 % (42-75); PLATELET COUNT 364 10^3/uL (130-400); WHITE BLOOD COUNT 8.6 10^3/uL (4.3-11.0)
[2020-02-01 11:38] LABS: ALANINE AMINOTRANSFERASE 22 U/L (0-55); ALBUMIN 4.2 GM/DL (3.2-4.5); ALKALINE PHOSPHATASE 47 U/L (40-136); BILIRUBIN,TOTAL 0.3 MG/DL (0.1-1.0); BUN/CREATININE RATIO 18; CALCIUM 8.9 MG/DL (8.5-10.1); CARBON DIOXIDE 28 MMOL/L (21-32); CHLORIDE 104 MMOL/L (98-107); CREATININE SERUM 0.97 MG/DL (0.60-1.30); GFR ESTIMATED > 60; GLUCOSE 123 MG/DL (70-105); POTASSIUM 4.2 MMOL/L (3.6-5.0); SODIUM 142 MMOL/L (135-145)
== END 2020-02-18 09:07 | disposition home or self-care (01) ==
LOC: ONC 10:56
PROVIDERS: ATTEND Internal Medicine Hematology & Oncology
DX: C83.39 Diffuse large B-cell lymphoma, extranodal and solid organ sites (principal); J44.9 Chronic obstructive pulmonary disease, unspecified; G47.33 Obstructive sleep apnea (adult) (pediatric); I10 Essential (primary) hypertension; Z45.2 Encounter for adjustment and management of vascular access device
CPT/HCPCS: 36591; 80053; 83615; 85025; 96523

== ENCOUNTER 2020-03-27 14:43 | Outpatient (RCR) | payer OTHER, MEDICARE ==
[2020-03-21 15:09] LABS: BASOPHILS # (AUTO) 0.1 10^3/uL (0.0-0.1); BASOPHILS % (AUTO) 1 % (0-10); EOSINOPHILS # (AUTO) 0.3 10^3/uL (0.0-0.3); EOSINOPHILS % (AUTO) 3 % (0-10); HEMATOCRIT 37 % (40-54); LYMPHOCYTES # (AUTO) 0.9 10^3/uL (1.0-4.0); LYMPHOCYTES % (AUTO) 9 % (12-44); MEAN CORPUSCULAR HEMOGLOBIN 26 pg (25-34); MEAN CORPUSCULAR HGB CONC 30 g/dL (32-36); MEAN CORPUSCULAR VOLUME 85 fL (80-99); MEAN PLATELET VOLUME 9.5 fL (9.0-12.2); MONOCYTES # (AUTO) 1.2 10^3/uL (0.0-1.0); MONOCYTES % (AUTO) 12 % (0-12); NEUTROPHILS # (AUTO) 7.9 10^3/uL (1.8-7.8); NEUTROPHILS % (AUTO) 76 % (42-75); PLATELET COUNT 324 10^3/uL (130-400); WHITE BLOOD COUNT 10.5 10^3/uL (4.3-11.0)
[2020-03-21 15:29] LABS: ALANINE AMINOTRANSFERASE 24 U/L (0-55); ALBUMIN 4.2 GM/DL (3.2-4.5); ALKALINE PHOSPHATASE 49 U/L (40-136); BILIRUBIN,TOTAL 0.2 MG/DL (0.1-1.0); BUN/CREATININE RATIO 20; CARBON DIOXIDE 31 MMOL/L (21-32); CHLORIDE 101 MMOL/L (98-107); CREATININE SERUM 0.93 MG/DL (0.60-1.30); GFR ESTIMATED > 60; GLUCOSE 134 MG/DL (70-105); POTASSIUM 4.1 MMOL/L (3.6-5.0); SODIUM 140 MMOL/L (135-145); TOTAL PROTEIN 6.9 GM/DL (6.4-8.2)
[~2020-03-27 14:43] MED LIST changes: -MONT10TA26 PO; +MONT10TA97 PO
== END 2020-06-19 | disposition home or self-care (01) ==
LOC: ONC 14:43
PROVIDERS: ATTEND Internal Medicine Hematology & Oncology
DX: C83.39 Diffuse large B-cell lymphoma, extranodal and solid organ sites (principal); D64.9 Anemia, unspecified; J44.9 Chronic obstructive pulmonary disease, unspecified; E66.01 Morbid (severe) obesity due to excess calories; R91.8 Other nonspecific abnormal finding of lung field
CPT/HCPCS: 80053; 82728; 83540; 83615; 85025; G0463; 36591; 82274